=== PATIENT | female | born 1960 | race Caucasian/White ===

== ENCOUNTER 2017-03-04 08:22 | Outpatient (RCR) | payer MEDICAID, SELFPAY ==
[2017-03-04 09:52] VITALS: BP 136/81; PULSE 83; RESP 20; TEMP 36.4
[2017-03-04 14:22] LABS: Prealbumin 35.1 mg/dL (20.0-40.0)
--- NOTE | 2017-03-04 18:02 | PCM.WC.HP ---
(1) Surgical wound dehiscence Status: Acute Current Visit: Yes Code(s): T81.31XA - Disruption of external operation (surgical) wound, not elsewhere classified, initial encounter (2) Ileostomy status Status: Acute Current Visit: Yes Code(s): Z93.2 - Ileostomy status (3) DM2 (diabetes mellitus, type 2) Status: Chronic Current Visit: Yes Qualifiers: Code(s): E11.9 - Type 2 diabetes mellitus without complications (4) Ulcerative colitis Status: Chronic Current Visit: No Code(s): K51.90 - Ulcerative colitis, unspecified, without complications Comment: Status post ileostomy (5) Gastroparesis Status: Suspected Current Visit: Yes Code(s): K31.84 - Gastroparesis History of Present Illness Date of Service: 03/04/17 Chief Complaint: Right sided abdominal wound. History of Wound: Ms. Artis is a 56yo with an extensive past medical history who presented here on referral by her general surgeon. She was referred to general surgeon after she presented to her PCP with an opening of her 10 year surgical scar. This was said to be sudden in onset without any known precipitating factor. There has been no discharge from the site and no increased tenderness around the area either. She had been cleaning with hydrogen peroxide and dressing with gauze as recommended by her surgeon. She has a history of prior surgical wound dehiscence and these were as a result of undissolved sutures. She feels well otherwise. As stated earlier she denies any discharge from the wound site. She also denies chills, fever or otherwise feeling of unwell. Past Medical History Past Medical History: Chronic Problems (Last Reviewed 02/23/17 @ 08:40 by Thai Noble MD) CAD (coronary artery disease) (Chronic) Hyperlipidemia (Chronic) Diarrhea (Chronic) Anemia of chronic renal failure, stage 3 (moderate) (Chronic) Obstructive sleep apnea (Chronic) Psoriasis (Chronic) Heart failure with preserved ejection fraction (Chronic) Benign essential HTN (Chronic) Depression (Chronic) DM2 (diabetes mellitus, type 2) (Chronic) FCHL (familial combined hyperlipidemia) (Chronic) Ulcerative colitis (Chronic) Status post ileostomy Hx of coronary artery disease (Chronic) Status post CABG, failed, status post multiple stents. Pulmonary hypertension (Chronic) History of coronary artery stent placement (Chronic ~2012) Mid LAD and Cx 2013, D1 and prox OM1 2012, Prox SVG, Distal SVG to the Mid OM 2012 S/P CABG (coronary artery bypass graft) (Chronic ~2012) JONES to LAD, SVG diag, SVG to OM, SVG to left PDA Chronic respiratory failure (Chronic) COPD (chronic obstructive pulmonary disease) (Chronic) Surgical History: angioplasty, coronary bypass surgery, - - Complete colectomy for ulcerative colitis 30 years ago. Patient had her ileostomy transitioned over from her right to her left. Allergies/Adverse Reactions: Allergies cinnamon [Cinnamon] Allergy (Verified 02/23/17 08:32) Anaphylaxis Influenza Virus Vaccines Allergy (Verified 02/23/17 08:37) Shortness of breath liraglutide [From Victoza] Allergy (Verified 02/23/17 08:32) Anaphylaxis metronidazole [From Flagyl] Allergy (Verified 02/23/17 08:32) Hives Metronidazole HCl [From Flagyl] Allergy (Verified 02/23/17 08:32) Hives Penicillins Allergy (Verified 02/23/17 08:32) Hives Sulfa (Sulfonamide Antibiotics) Allergy (Verified 02/23/17 08:32) Hives codeine Adverse Reaction (Verified 02/23/17 08:32) Stops Ileostomy dicyclomine HCl [From Bentyl] Adverse Reaction (Verified 02/23/17 08:32) Nausea metformin HCl [From Glucophage] Adverse Reaction (Verified 02/23/17 08:32) Nausea Lqzbboj-Kav-Mwo Reductase Inhibitor Adverse Reaction (Verified 02/23/17 08:32) Nausea/joints ache Home Medications: Ambulatory Orders Medication Instructions Recorded ALPRAZolam [Xanax] 0.5 mg PO QHS 01/21/15 Aspirin [Aspirin, Baby] 81 mg PO DAILY@0800 01/21/15 Atorvastatin Calcium [Lipitor] 80 mg PO QHS 01/21/15 Clopidogrel Bisulfate [Plavix] 75 mg PO DAILY 01/21/15 Duloxetine Hcl [Cymbalta] 60 mg PO BID 01/21/15 Magnesium Oxide [Mag-Ox 400] 400 mg PO BID 01/21/15 Metoprolol Tartrate [Lopressor 75 mg PO TID 01/21/15 (beta esha)] Bupropion HCl [Wellbutrin Xl] 100 mg PO TID 03/28/16 Nitroglycerin [Nitrostat] 0.4 mg SL Q5M PRN 07/12/16 Insulin Aspart [Novolog Vial] 20 - 40 unit SQ TIDCM 09/03/16 Isosorbide DN [Isordil] 30 mg PO TID 09/03/16 Pregabalin [Lyrica] 100 mg PO BID 09/03/16 Ondansetron HCl [Zofran] 4 mg PO Q8H PRN PRN #20 tab 09/05/16 Baclofen 10 mg PO QHS 11/24/16 Calcium Carbonate [Calcium] 600 mg PO BID 11/24/16 Cholecalciferol (Vitamin D3) 2,000 unit PO DAILY 11/24/16 [Vitamin D3] Fenofibrate 200 mg PO DAILY 11/24/16 Insulin Glargine,Hum.rec.anlog 40 unit SQ DAILY 11/24/16 [Basaglar Kwikpen U-100] Insulin Glargine,Hum.rec.anlog 50 unit SQ QHS 11/24/16 [Basaglar Kwikpen U-100] TraMADol [Ultram (G)] 50 mg PO QHS 11/24/16 loperamide 2 mg tablet 2 mg PO .qid PRN tab 02/12/17 omeprazole 20 mg capsule,delayed 20 mg PO QDAY 02/12/17 release triamcinolone acetonide 0.1 % 1 applic TOPICAL BID 02/12/17 topical cream - Family History Maternal Family History: Family History (Last Reviewed 02/23/17 @ 08:40 by Thai Noble MD) Mother CVA (cerebral vascular accident) Diabetes Brother Heart disease Father Cancer Grandmother Myocardial infarction Heart Disease, - - No autoimmune disease that she is aware of Paternal Family History: Family History (Last Reviewed 02/23/17 @ 08:40 by Thai Noble MD) Mother CVA (cerebral vascular accident) Diabetes Brother Heart disease Father Cancer Grandmother Myocardial infarction Cancer - Father has H/o lymphoma, - - No autoimmune disease that she is aware of Smoking Status: Former smoker Review of Systems Constitutional: Denies: Chills, Fever, Malaise Eyes: Denies: Pain, Redness HEENT: Denies: Difficulty Hearing, Difficulty Swallowing Cardiovascular: Denies: Chest Pain, Chest Tightness, Palpitations Gastrointestinal: Denies: Hematemesis, Vomiting Neurological: Denies: Change in Speech, Slurred speech Psychiatric: Denies: Homicidal Ideations, Suicidal Ideations - Physical Exam Vital Signs Temp Pulse Resp BP 97.5 F L 83 20 H 136/81 H 03/04/17 09:52 03/04/17 09:52 03/04/17 09:52 03/04/17 09:52 General: Alert, Oriented x3, Cooperative, No apparent distress HEENT: Atraumatic, Normocephalic Oral: Moist Mucosa Neck: Supple, No JVD Lungs: Clear to auscultation, Normal air movement Cardiovascular: Regular rate, Regular Rhythm, Normal S1, Normal S2 Abdomen: Soft, No Hepato-splenomegaly Extremities: No cyanosis Wound Measurements and Assessment - Nurse 1 - General Ulcer Measurement Start: 03/04/17 09:51 Freq: Status: Active Protocol: Activity Type Activity Date Activity User E-Sign Co-Sign Detail Recorded Client Recorded Date Recorded By Document 03/04/17 09:52 [id number] 03/04/17 09:59 RB 03/04/17 09:52 Wound Center Nurse 1 [Ulcer Assessment Protocol: .WD.LOC] 1. RLQ -Combined with other wound No -Current Size (cm) - Length 0.4 -Current Size (cm) - Width 0.8 -Current Size (cm) - Depth 0.5 -Total Square Cm 0.32 -Photo Taken Yes -Epithelialization Small 1-33% -Tunneling No -Undermining/Tunneling No -Circular Undermining No -Classification - Thickness Full Thickness without Exposed Support Structure -Exudate Amt Medium (34-66%) -Exudate Type Serosanguineous -Wound Margin Fibrotic Scar, Thickened Scar -Granulation Amt Large (67-100%) -Granulation Quality [place] -Slough/Fibrin Yes -Necrosis Amt Small (1-33%) -Necrotic Tissue Type Adherent Slough -Structure Exposed N/A -Texture (Fay-wound Skin Appearance) Assessed -Moisture (Fay-wound Skin Appearance Assessed ) -Color (Fay-wound Skin Appearance) Assessed -Temperature (Fay-wound Skin No Abnormality Appearance) (Pt Warm) -Tenderness on Palpation (Fay-wound No Skin Appearance) -Ulcer Cleansing Wound Cleanser -Foul Odor after Cleansing No -Anesthetic Used 5% Lidocaine Gel [Edema Assessment] -Lower Limb Edema Present NA WC - Nurse 2 - General Ulcer CM Notes Start: 03/04/17 09:51 Freq: Status: Active Protocol: Activity Type Activity Date Activity User E-Sign Co-Sign Detail Recorded Client Recorded Date Recorded By Document 03/04/17 10:35 DV [id number] 03/04/17 10:41 DV 03/04/17 10:35 Wound Center Nurse 2 [Procedure/Treatment] 1. RLQ -Time 10:37 -Correct Patient Yes -Correct Side, Site, Position Yes -Correct Procedure Yes -Procedure Performed Yes -Type of Procedure Debridement -Clinical Debridement Subcutaneous -Post Debridement Size (cm) - Length 0.6 -Post Debridement Size (cm) - Width 1.2 -Post Debridement Size (cm) - Depth 0.7 -Total Square Cm 0.72 -Wound/Ulcer Outcome Not Healed -Ulcer Cleansing Rinsed/ Irrigated with Saline -Foul Odor after Cleansing No -Bioengineered Tissue No -Cetacaine [place] No -Bleeding Controlled with Pressure -Treatment Response Procedure Not Tolerated Well [See Physician Procedure note for Specifics] Pain Scale: 0-10 Numeric [Pain] -Is Patient Pain Free? No Neurological: Cranial nerves II-XII grossly intact Psych/Mental Status: Normal Affect Debridement Note Post-Debridement Measurements/Treatment - Nurse 2 - General Ulcer CM Notes Start: 03/04/17 09:51 Freq: Status: Active Protocol: Activity Type Activity Date Activity User E-Sign Co-Sign Detail Recorded Client Recorded Date Recorded By Document 03/04/17 10:35 DV [id number] 03/04/17 10:41 DV 03/04/17 10:35 Wound Center Nurse 2 1. RLQ -Time 10:37 -Correct Patient Yes -Correct Side, Site, Position Yes -Correct Procedure Yes -Procedure Performed Yes -Type of Procedure Debridement -Clinical Debridement Subcutaneous -Post Debridement Size (cm) - Length 0.6 -Post Debridement Size (cm) - Width 1.2 -Post Debridement Size (cm) - Depth 0.7 -Total Square Cm 0.72 -Wound/Ulcer Outcome Not Healed -Ulcer Cleansing Rinsed/ Irrigated with Saline -Foul Odor after Cleansing No -Bioengineered Tissue No -Cetacaine [place] No -Bleeding Controlled with Pressure -Treatment Response Procedure Not Tolerated Well Pain Scale: 0-10 Numeric Is Patient Pain Free? No Wound debrided: Right lower abdominal wound. Type of Debridement: Excisional debridement Anesthesia Used: 5% Lidocaine Gel Depth: Down to and including healthy tissue, in the subcutaneous layer Percentage of wound debrided: 100 Instrument Used: 3mm curette, #15 blade, Forceps Tissue Removed: Slough, fatty tissue. Amount of bleeding with debridement: Mild Bleeding Controlled with: Pressure Patient tolerated procedure well Assessment/Plan Active Problems (Last Reviewed 02/23/17 @ 08:40 by Thai Noble MD) Ileostomy status (Acute) Surgical wound dehiscence (Acute) DM2 (diabetes mellitus, type 2) (Chronic) Assessment: Abdominal wound dehiscence of a 10 year surgical scar. Diabetes mellitus type 2 poorly controlled. Plan: Sudden onset wound dehiscence of the 10 year surgical scar. No known precipitating factor. No obvious signs of infection at this time however culture was taken after debridement was done. Due to a history of gastroparesis and poor intake a prealbumin was also done. Pack wound daily with Aquacel. Review results at next visit. Follow-up in 1 week. This note was generated with [employer] dictation software. It may contain incorrect words, spelling, and punctuation that were not noted in checking the note before signing.
== END 2017-03-07 23:59 ==
LOC: WC 08:22
PROVIDERS: Family Provider Internal Medicine; PCP Internal Medicine; Visit Provider Internal Medicine
DX: T81.30XA Disruption of wound, unspecified, initial encounter (principal); Y83.8 Other surgical procedures as the cause of abnormal reaction of the patient, or of later complication, without mention of misadventure at the time of the procedure; Z93.2 Ileostomy status; K51.90 Ulcerative colitis, unspecified, without complications; K31.84 Gastroparesis; I25.10 Atherosclerotic heart disease of native coronary artery without angina pectoris; E78.4 Other hyperlipidemia; E11.22 Type 2 diabetes mellitus with diabetic chronic kidney disease; I13.0 Hypertensive heart and chronic kidney disease with heart failure and stage 1 through stage 4 chronic kidney disease, or unspecified chronic kidney disease; N18.3 Chronic kidney disease, stage 3 (moderate); I50.32 Chronic diastolic (congestive) heart failure; J96.10 Chronic respiratory failure, unspecified whether with hypoxia or hypercapnia; J44.9 Chronic obstructive pulmonary disease, unspecified; Z95.1 Presence of aortocoronary bypass graft; I27.20 Pulmonary hypertension, unspecified; L40.9 Psoriasis, unspecified; G47.33 Obstructive sleep apnea (adult) (pediatric); Z79.02 Long term (current) use of antithrombotics/antiplatelets; Z79.82 Long term (current) use of aspirin; Z79.4 Long term (current) use of insulin; Z79.899 Other long term (current) drug therapy; Z87.891 Personal history of nicotine dependence; E11.65 Type 2 diabetes mellitus with hyperglycemia
CPT/HCPCS: 11042; 84134; 87070; 87075; 87205; 99213; G0463

== ENCOUNTER 2017-04-01 12:49 | Outpatient (RCR) | payer MEDICAID, SELFPAY | END 2017-04-07 23:59 | LOC: DC 12:49 | PROVIDERS: Family Provider Internal Medicine; PCP Internal Medicine; Visit Provider Nurse Practitioner Family | DX: E11.22 Type 2 diabetes mellitus with diabetic chronic kidney disease (principal); Z68.31 Body mass index [BMI] 31.0-31.9, adult; Z71.3 Dietary counseling and surveillance | CPT/HCPCS: 97802 ==

== ENCOUNTER 2017-04-07 09:00 | Outpatient (RCR) | payer MEDICAID, SELFPAY ==
[2017-03-08 01:43] VITALS: BP 136/81; PULSE 83; RESP 20; TEMP 36.4
[2017-03-10 09:07] VITALS: BP 141/81; PULSE 90; RESP 18; TEMP 35.5
--- NOTE | 2017-03-10 13:03 | PCM.WC.PN ---
(1) Surgical wound dehiscence Status: Acute Current Visit: Yes Qualifiers: Encounter type: subsequent encounter Qualified Code(s): T81.31XD - Disruption of external operation (surgical) wound, not elsewhere classified, subsequent encounter Code(s): T81.31XA - Disruption of external operation (surgical) wound, not elsewhere classified, initial encounter (2) DM2 (diabetes mellitus, type 2) Status: Chronic Current Visit: Yes Qualifiers: Code(s): E11.9 - Type 2 diabetes mellitus without complications (3) Gastroparesis Status: Suspected Current Visit: No Code(s): K31.84 - Gastroparesis (4) Ulcerative colitis Status: Chronic Current Visit: No Code(s): K51.90 - Ulcerative colitis, unspecified, without complications Comment: Status post ileostomy Type of Wound Date of Service: 03/10/17 Chief Complaint: Right sided abdominal wound. History of Wound: Ms. Artis is a 56yo with an extensive past medical history who presented here on referral by her general surgeon. She was referred to general surgeon after she presented to her PCP with an opening of her 10 year surgical scar. This was said to be sudden in onset without any known precipitating factor. There has been no discharge from the site and no increased tenderness around the area either. She had been cleaning with hydrogen peroxide and dressing with gauze as recommended by her surgeon. She has a history of prior surgical wound dehiscence and these were as a result of undissolved sutures. She feels well otherwise. As stated earlier she denies any discharge from the wound site. She also denies chills, fever or otherwise feeling of unwell. Progress of Wound: Increasing wound margin. However, no discharge from the site. Has had a 6 day history of increased cough, shortness of breath, wheezing and chest pain. She has been managing symptoms at home. She also admits to poor blood sugar control during this time. - Physical Exam Vital Signs Temp Pulse Resp BP 95.9 F L 90 18 141/81 H 03/10/17 09:07 03/10/17 09:07 03/10/17 09:07 03/10/17 09:07 General: Alert, Oriented x3, Cooperative HEENT: Atraumatic, Normocephalic Neck: Supple Lungs: Wheezes Abdomen: Soft, Non Tender, Obese Extremities: No cyanosis Wound Measurements and Assessment - Nurse 1 - General Ulcer Measurement Start: 03/10/17 09:07 Freq: Status: Active Protocol: Activity Type Activity Date Activity User E-Sign Co-Sign Detail Recorded Client Recorded Date Recorded By Document 03/10/17 09:07 RB [id number] 03/10/17 09:14 RB 03/10/17 09:07 Wound Center Nurse 1 [Ulcer Assessment Protocol: WC.WD.LOC] 1. RLQ -Combined with other wound No -Current Size (cm) - Length 0.5 -Current Size (cm) - Width 1.3 -Current Size (cm) - Depth 1.2 -Total Square Cm 0.65 -Photo Taken No -Epithelialization Small 1-33% -Tunneling Yes -Tunneling Position (O'clock) 10 -Tunneling Distance (cm) 1.1 -Undermining/Tunneling No -Circular Undermining No -Classification - Thickness Full Thickness without Exposed Support Structure -Exudate Amt Small (1-33%) -Exudate Type Serosanguineous -Wound Margin Distinct, Outline Attached -Granulation Amt Medium (34-66%) -Granulation Quality [place] -Slough/Fibrin Yes -Necrosis Amt Small (1-33%) -Necrotic Tissue Type Adherent Slough -Structure Exposed N/A -Texture (Fay-wound Skin Appearance) Assessed -Moisture (Fay-wound Skin Appearance Assessed ) -Color (Fay-wound Skin Appearance) Assessed -Temperature (Fay-wound Skin No Abnormality Appearance) (Pt Warm) -Tenderness on Palpation (Fay-wound No Skin Appearance) -Ulcer Cleansing Rinsed/ Irrigated with Saline -Foul Odor after Cleansing No -Anesthetic Used 5% Lidocaine Gel WC - Nurse 2 - General Ulcer CM Notes Start: 03/10/17 09:07 Freq: Status: Active Protocol: Activity Type Activity Date Activity User E-Sign Co-Sign Detail Recorded Client Recorded Date Recorded By Document 03/10/17 09:58 DV [id number] 03/10/17 10:00 DV 03/10/17 09:58 Wound Center Nurse 2 [Procedure/Treatment] -Time 09:58 -Correct Patient Yes -Correct Side, Site, Position Yes -Correct Procedure Yes -Procedure Performed Yes -Type of Procedure Debridement -Clinical Debridement Subcutaneous -Post Debridement Size (cm) - Length 0.7 -Post Debridement Size (cm) - Width 1.4 -Post Debridement Size (cm) - Depth 0.5 -Total Square Cm 0.98 -Wound/Ulcer Outcome Not Healed -Ulcer Cleansing Rinsed/ Irrigated with Saline -Foul Odor after Cleansing No -Bioengineered Tissue No -Cetacaine [place] No -Bleeding Controlled with Pressure -Treatment Response Procedure Tolerated Well [See Physician Procedure note for Specifics] Pain Scale: 0-10 Numeric [Pain] -Is Patient Pain Free? Yes Musculoskeletal: No Muscle Wasting Neurological: Cranial nerves II-XII grossly intact Debridement Note Post-Debridement Measurements/Treatment WC - Nurse 2 - General Ulcer CM Notes Start: 03/10/17 09:07 Freq: Status: Active Protocol: Activity Type Activity Date Activity User E-Sign Co-Sign Detail Recorded Client Recorded Date Recorded By Document 03/10/17 09:58 DV [id number] 03/10/17 10:00 DV 03/10/17 09:58 Wound Center Nurse 2 1. RLQ -Time 09:58 -Correct Patient Yes -Correct Side, Site, Position Yes -Correct Procedure Yes -Procedure Performed Yes -Type of Procedure Debridement -Clinical Debridement Subcutaneous -Post Debridement Size (cm) - Length 0.7 -Post Debridement Size (cm) - Width 1.4 -Post Debridement Size (cm) - Depth 0.5 -Total Square Cm 0.98 -Wound/Ulcer Outcome Not Healed -Ulcer Cleansing Rinsed/ Irrigated with Saline -Foul Odor after Cleansing No -Bioengineered Tissue No -Cetacaine [place] No -Bleeding Controlled with Pressure -Treatment Response Procedure Tolerated Well Pain Scale: 0-10 Numeric Is Patient Pain Free? Yes Wound debrided: Right sided Lower abdominal wound. Type of Debridement: Excisional debridement Anesthesia Used: 5% Lidocaine Gel Depth: Down to and including healthy tissue, in the subcutaneous layer Percentage of wound debrided: 100 Instrument Used: 5mm curette Tissue Removed: Slough Amount of bleeding with debridement: Mild Bleeding Controlled with: Pressure Patient tolerated procedure well Assessment/Plan Active Problems (Last Reviewed 03/10/17 @ 15:50 by Roberto Lynch NP-C) Surgical wound dehiscence (Acute) DM2 (diabetes mellitus, type 2) (Chronic) Assessment: Abdominal wound dehiscence of a 10 year surgical scar. Diabetes mellitus type 2 poorly controlled. Plan: Increasing wound margin since last visit. Tunnelling also appears to have increased. She however denies any increased discharge from the site. Has had a bout of what appears to be acute bronchitis for about 6 days. Advised to follow up with her Physician's office [facility]. ??? Increased wound margin and tunelling from increased intrabdominal presusre due to cough. Countinue Aquacel daily with packing of tunelling also. Continue protein rich diet and optimal blood sugar control. If tunelling and wound margin continue to increase, will refer back to Dr. Noble for possible surgical exploration. Follow up in 1 week. This note was generated with [employer] dictation software. It may contain incorrect words, spelling, and punctuation that were not noted in checking the note before signing.
--- NOTE | 2017-03-10 13:13 | PN.PCM_ITS ---
(1) Surgical wound dehiscence Status: Acute Current Visit: Yes Qualifiers: Encounter type: subsequent encounter Qualified Code(s): T81.31XD - Disruption of external operation (surgical) wound, not elsewhere classified, subsequent encounter Code(s): T81.31XA - Disruption of external operation (surgical) wound, not elsewhere classified, initial encounter (2) DM2 (diabetes mellitus, type 2) Status: Chronic Current Visit: Yes Qualifiers: Code(s): E11.9 - Type 2 diabetes mellitus without complications (3) Gastroparesis Status: Suspected Current Visit: No Code(s): K31.84 - Gastroparesis (4) Ulcerative colitis Status: Chronic Current Visit: No Code(s): K51.90 - Ulcerative colitis, unspecified, without complications Comment: Status post ileostomy Type of Wound Date of Service: 03/10/17 Chief Complaint: Right sided abdominal wound. History of Wound: Ms. Artis is a 56yo with an extensive past medical history who presented here on referral by her general surgeon. She was referred to general surgeon after she presented to her PCP with an opening of her 10 year surgical scar. This was said to be sudden in onset without any known precipitating factor. There has been no discharge from the site and no increased tenderness around the area either. She had been cleaning with hydrogen peroxide and dressing with gauze as recommended by her surgeon. She has a history of prior surgical wound dehiscence and these were as a result of undissolved sutures. She feels well otherwise. As stated earlier she denies any discharge from the wound site. She also denies chills, fever or otherwise feeling of unwell. Progress of Wound: Increasing wound margin. However, no discharge from the site. Has had a 6 day history of increased cough, shortness of breath, wheezing and chest pain. She has been managing symptoms at home. She also admits to poor blood sugar control during this time. - Physical Exam Vital Signs Temp Pulse Resp BP 95.9 F L 90 18 141/81 H 03/10/17 09:07 03/10/17 09:07 03/10/17 09:07 03/10/17 09:07 General: Alert, Oriented x3, Cooperative HEENT: Atraumatic, Normocephalic Neck: Supple Lungs: Wheezes Abdomen: Soft, Non Tender, Obese Extremities: No cyanosis Wound Measurements and Assessment - Nurse 1 - General Ulcer Measurement Start: 03/10/17 09:07 Freq: Status: Active Protocol: Activity Type Activity Date Activity User E-Sign Co-Sign Detail Recorded Client Recorded Date Recorded By Document 03/10/17 09:07 RB [id number] 03/10/17 09:14 RB 03/10/17 09:07 Wound Center Nurse 1 [Ulcer Assessment Protocol: WC.WD.LOC] 1. RLQ -Combined with other wound No -Current Size (cm) - Length 0.5 -Current Size (cm) - Width 1.3 -Current Size (cm) - Depth 1.2 -Total Square Cm 0.65 -Photo Taken No -Epithelialization Small 1-33% -Tunneling Yes -Tunneling Position (O'clock) 10 -Tunneling Distance (cm) 1.1 -Undermining/Tunneling No -Circular Undermining No -Classification - Thickness Full Thickness without Exposed Support Structure -Exudate Amt Small (1-33%) -Exudate Type Serosanguineous -Wound Margin Distinct, Outline Attached -Granulation Amt Medium (34-66%) -Granulation Quality [place] -Slough/Fibrin Yes -Necrosis Amt Small (1-33%) -Necrotic Tissue Type Adherent Slough -Structure Exposed N/A -Texture (Fay-wound Skin Appearance) Assessed -Moisture (Fay-wound Skin Appearance Assessed ) -Color (Fay-wound Skin Appearance) Assessed -Temperature (Fay-wound Skin No Abnormality Appearance) (Pt Warm) -Tenderness on Palpation (Fay-wound No Skin Appearance) -Ulcer Cleansing Rinsed/ Irrigated with Saline -Foul Odor after Cleansing No -Anesthetic Used 5% Lidocaine Gel WC - Nurse 2 - General Ulcer CM Notes Start: 03/10/17 09:07 Freq: Status: Active Protocol: Activity Type Activity Date Activity User E-Sign Co-Sign Detail Recorded Client Recorded Date Recorded By Document 03/10/17 09:58 DV [id number] 03/10/17 10:00 DV 03/10/17 09:58 Wound Center Nurse 2 [Procedure/Treatment] -Time 09:58 -Correct Patient Yes -Correct Side, Site, Position Yes -Correct Procedure Yes -Procedure Performed Yes -Type of Procedure Debridement -Clinical Debridement Subcutaneous -Post Debridement Size (cm) - Length 0.7 -Post Debridement Size (cm) - Width 1.4 -Post Debridement Size (cm) - Depth 0.5 -Total Square Cm 0.98 -Wound/Ulcer Outcome Not Healed -Ulcer Cleansing Rinsed/ Irrigated with Saline -Foul Odor after Cleansing No -Bioengineered Tissue No -Cetacaine [place] No -Bleeding Controlled with Pressure -Treatment Response Procedure Tolerated Well [See Physician Procedure note for Specifics] Pain Scale: 0-10 Numeric [Pain] -Is Patient Pain Free? Yes Musculoskeletal: No Muscle Wasting Neurological: Cranial nerves II-XII grossly intact Debridement Note Post-Debridement Measurements/Treatment WC - Nurse 2 - General Ulcer CM Notes Start: 03/10/17 09:07 Freq: Status: Active Protocol: Activity Type Activity Date Activity User E-Sign Co-Sign Detail Recorded Client Recorded Date Recorded By Document 03/10/17 09:58 DV [id number] 03/10/17 10:00 DV 03/10/17 09:58 Wound Center Nurse 2 1. RLQ -Time 09:58 -Correct Patient Yes -Correct Side, Site, Position Yes -Correct Procedure Yes -Procedure Performed Yes -Type of Procedure Debridement -Clinical Debridement Subcutaneous -Post Debridement Size (cm) - Length 0.7 -Post Debridement Size (cm) - Width 1.4 -Post Debridement Size (cm) - Depth 0.5 -Total Square Cm 0.98 -Wound/Ulcer Outcome Not Healed -Ulcer Cleansing Rinsed/ Irrigated with Saline -Foul Odor after Cleansing No -Bioengineered Tissue No -Cetacaine [place] No -Bleeding Controlled with Pressure -Treatment Response Procedure Tolerated Well Pain Scale: 0-10 Numeric Is Patient Pain Free? Yes Wound debrided: Right sided Lower abdominal wound. Type of Debridement: Excisional debridement Anesthesia Used: 5% Lidocaine Gel Depth: Down to and including healthy tissue, in the subcutaneous layer Percentage of wound debrided: 100 Instrument Used: 5mm curette Tissue Removed: Slough Amount of bleeding with debridement: Mild Bleeding Controlled with: Pressure Patient tolerated procedure well Assessment/Plan Active Problems (Last Reviewed 03/10/17 @ 15:50 by Roberto Lynch NP-C) Surgical wound dehiscence (Acute) DM2 (diabetes mellitus, type 2) (Chronic) Assessment: Abdominal wound dehiscence of a 10 year surgical scar. Diabetes mellitus type 2 poorly controlled. Plan: Increasing wound margin since last visit. Tunnelling also appears to have increased. She however denies any increased discharge from the site. Has had a bout of what appears to be acute bronchitis for about 6 days. Advised to follow up with her Physician's office [facility]. ??? Increased wound margin and tunelling from increased intrabdominal presusre due to cough. Countinue Aquacel daily with packing of tunelling also. Continue protein rich diet and optimal blood sugar control. If tunelling and wound margin continue to increase , will refer back to Dr. Noble for possible surgical exploration. Follow up in 1 week. This note was generated with [employer] dictation software. It may contain incorrect words, spelling, and punctuation that were not noted in checking the note before signing.
[2017-03-17 10:10] VITALS: BP 158/92; PULSE 81; RESP 18; TEMP 36.2
--- NOTE | 2017-03-17 14:21 | PCM.WC.PN ---
(1) Surgical wound dehiscence Status: Acute Current Visit: Yes Qualifiers: Encounter type: subsequent encounter Qualified Code(s): T81.31XD - Disruption of external operation (surgical) wound, not elsewhere classified, subsequent encounter Code(s): T81.31XA - Disruption of external operation (surgical) wound, not elsewhere classified, initial encounter (2) DM2 (diabetes mellitus, type 2) Status: Chronic Current Visit: Yes Qualifiers: Code(s): E11.9 - Type 2 diabetes mellitus without complications (3) Gastroparesis Status: Suspected Current Visit: No Code(s): K31.84 - Gastroparesis (4) Ulcerative colitis Status: Chronic Current Visit: No Code(s): K51.90 - Ulcerative colitis, unspecified, without complications Comment: Status post ileostomy Type of Wound Date of Service: 03/17/17 Chief Complaint: Right sided abdominal wound. History of Wound: Ms. Artis is a 56yo with an extensive past medical history who presented here on referral by her general surgeon. She was referred to general surgeon after she presented to her PCP with an opening of her 10 year surgical scar. This was said to be sudden in onset without any known precipitating factor. There has been no discharge from the site and no increased tenderness around the area either. She had been cleaning with hydrogen peroxide and dressing with gauze as recommended by her surgeon. She has a history of prior surgical wound dehiscence and these were as a result of undissolved sutures. She feels well otherwise. As stated earlier she denies any discharge from the wound site. She also denies chills, fever or otherwise feeling of unwell. Progress of Wound: Stable. No new compliants today. - Physical Exam Vital Signs Temp Pulse Resp BP 97.1 F L 81 18 158/92 H 03/17/17 10:10 03/17/17 10:10 03/17/17 10:10 03/17/17 10:10 General: Alert, Oriented x3, Cooperative, No apparent distress HEENT: Atraumatic, Normocephalic Oral: Moist Mucosa Neck: Supple Cardiovascular: Regular rate Abdomen: Soft, - - Ileostomy bag in place. Wound Measurements and Assessment WC - Nurse 1 - General Ulcer Measurement Start: 03/10/17 09:07 Freq: Status: Active Protocol: Activity Type Activity Date Activity User E-Sign Co-Sign Detail Recorded Client Recorded Date Recorded By Document 03/17/17 10:10 [facility] [id number] 03/17/17 10:18 [facility] 03/17/17 10:10 Wound Center Nurse 1 [Ulcer Assessment Protocol: WC.WD.LOC] 1. RLQ -Combined with other wound No -Current Size (cm) - Length 0.3 -Current Size (cm) - Width 1 -Current Size (cm) - Depth 1.6 -Total Square Cm 0.3 -Photo Taken No -Epithelialization None Present -Tunneling No -Undermining/Tunneling No -Exudate Amt Medium (34-66%) -Exudate Type Sanguineous -Wound Margin Distinct, Outline Attached -Granulation Amt Large (67-100%) -Granulation Quality Red -Slough/Fibrin No -Necrosis Amt None Present (0 %) -Structure Exposed N/A -Texture (Fay-wound Skin Appearance) Scarring -Moisture (Fay-wound Skin Appearance Assessed ) -Color (Fay-wound Skin Appearance) Assessed -Temperature (Fay-wound Skin No Abnormality Appearance) (Pt Warm) -Tenderness on Palpation (Fay-wound Yes Skin Appearance) -Ulcer Cleansing Rinsed/ Irrigated with Saline -Foul Odor after Cleansing No -Anesthetic Used 4% Lidocaine Solution - Nurse 2 - General Ulcer CM Notes Start: 03/10/17 09:07 Freq: Status: Active Protocol: Activity Type Activity Date Activity User E-Sign Co-Sign Detail Recorded Client Recorded Date Recorded By Document 03/17/17 11:51 [id number] 03/17/17 11:54 DV 03/17/17 11:51 Wound Center Nurse 2 [Procedure/Treatment] -Time 11:52 -Correct Patient Yes -Correct Side, Site, Position Yes -Correct Procedure Yes -Procedure Performed Yes -Type of Procedure Debridement -Clinical Debridement Subcutaneous -Post Debridement Size (cm) - Length 0.5 -Post Debridement Size (cm) - Width 1.1 -Post Debridement Size (cm) - Depth 0.5 -Total Square Cm 0.55 -Wound/Ulcer Outcome Not Healed -Ulcer Cleansing Rinsed/ Irrigated with Saline -Foul Odor after Cleansing No -Bioengineered Tissue No -Cetacaine [place] No -Bleeding Controlled with Pressure -Treatment Response Procedure Tolerated Well [See Physician Procedure note for Specifics] Pain Scale: 0-10 Numeric [Pain] -Is Patient Pain Free? Yes Neurological: Cranial nerves II-XII grossly intact Debridement Note Post-Debridement Measurements/Treatment WC - Nurse 2 - General Ulcer CM Notes Start: 03/10/17 09:07 Freq: Status: Active Protocol: Activity Type Activity Date Activity User E-Sign Co-Sign Detail Recorded Client Recorded Date Recorded By Document 03/10/17 09:58 DV [id number] 03/10/17 10:00 DV Document 03/17/17 11:51 DV [id number] 03/17/17 11:54 DV 03/10/17 03/17/17 09:58 11:51 Wound Center Nurse 2 1. RLQ -Time 09:58 11:52 -Correct Patient Yes Yes -Correct Side, Site, Position Yes Yes -Correct Procedure Yes Yes -Procedure Performed Yes Yes -Type of Procedure Debridement Debridement -Clinical Debridement Subcutaneous Subcutaneous -Post Debridement Size (cm) - Length 0.7 0.5 -Post Debridement Size (cm) - Width 1.4 1.1 -Post Debridement Size (cm) - Depth 0.5 0.5 -Total Square Cm 0.98 0.55 -Wound/Ulcer Outcome Not Healed Not Healed -Ulcer Cleansing Rinsed/ Rinsed/ Irrigated with Irrigated with Saline Saline -Foul Odor after Cleansing No No -Bioengineered Tissue No No -Cetacaine [place] No No -Bleeding Controlled with Pressure Pressure -Treatment Response Procedure Procedure Tolerated Well Tolerated Well Pain Scale: 0-10 Numeric Is Patient Pain Free? Yes Yes Type of Debridement: Excisional debridement Anesthesia Used: 4% Lidocaine Solution Depth: Down to and including healthy tissue, in the subcutaneous layer Percentage of wound debrided: 100 Instrument Used: 3mm curette Tissue Removed: Slough Amount of bleeding with debridement: Mild Bleeding Controlled with: Pressure Patient tolerated procedure well Assessment/Plan Active Problems (Last Reviewed 03/10/17 @ 15:50 by DERIC Banks) Surgical wound dehiscence (Acute) DM2 (diabetes mellitus, type 2) (Chronic) Assessment: Abdominal wound dehiscence of a 10 year surgical scar. Diabetes mellitus type 2 poorly controlled. Plan: Ms. Artis is doing well. Wound tunelling with slight reduction in size. Wound size also slightly reduced. Continue daily packing with aquacel. Continue increased protein intake. Continue optimal blood sugar control. Follow up in 1 week. This note was generated with [employer] software. It may contain incorrect words, spelling, and punctuation that were not noted in checking the note before signing.
--- NOTE | 2017-03-17 14:35 | PN.PCM_ITS ---
(1) Surgical wound dehiscence Status: Acute Current Visit: Yes Qualifiers: Encounter type: subsequent encounter Qualified Code(s): T81.31XD - Disruption of external operation (surgical) wound, not elsewhere classified, subsequent encounter Code(s): T81.31XA - Disruption of external operation (surgical) wound, not elsewhere classified, initial encounter (2) DM2 (diabetes mellitus, type 2) Status: Chronic Current Visit: Yes Qualifiers: Code(s): E11.9 - Type 2 diabetes mellitus without complications (3) Gastroparesis Status: Suspected Current Visit: No Code(s): K31.84 - Gastroparesis (4) Ulcerative colitis Status: Chronic Current Visit: No Code(s): K51.90 - Ulcerative colitis, unspecified, without complications Comment: Status post ileostomy Type of Wound Date of Service: 03/17/17 Chief Complaint: Right sided abdominal wound. History of Wound: Ms. Artis is a 56yo with an extensive past medical history who presented here on referral by her general surgeon. She was referred to general surgeon after she presented to her PCP with an opening of her 10 year surgical scar. This was said to be sudden in onset without any known precipitating factor. There has been no discharge from the site and no increased tenderness around the area either. She had been cleaning with hydrogen peroxide and dressing with gauze as recommended by her surgeon. She has a history of prior surgical wound dehiscence and these were as a result of undissolved sutures. She feels well otherwise. As stated earlier she denies any discharge from the wound site. She also denies chills, fever or otherwise feeling of unwell. Progress of Wound: Stable. No new compliants today. - Physical Exam Vital Signs Temp Pulse Resp BP 97.1 F L 81 18 158/92 H 03/17/17 10:10 03/17/17 10:10 03/17/17 10:10 03/17/17 10:10 General: Alert, Oriented x3, Cooperative, No apparent distress HEENT: Atraumatic, Normocephalic Oral: Moist Mucosa Neck: Supple Cardiovascular: Regular rate Abdomen: Soft, - - Ileostomy bag in place. Wound Measurements and Assessment WC - Nurse 1 - General Ulcer Measurement Start: 03/10/17 09:07 Freq: Status: Active Protocol: Activity Type Activity Date Activity User E-Sign Co-Sign Detail Recorded Client Recorded Date Recorded By Document 03/17/17 10:10 [facility] [id number] 03/17/17 10:18 [facility] 03/17/17 10:10 Wound Center Nurse 1 [Ulcer Assessment Protocol: WC.WD.LOC] 1. RLQ -Combined with other wound No -Current Size (cm) - Length 0.3 -Current Size (cm) - Width 1 -Current Size (cm) - Depth 1.6 -Total Square Cm 0.3 -Photo Taken No -Epithelialization None Present -Tunneling No -Undermining/Tunneling No -Exudate Amt Medium (34-66%) -Exudate Type Sanguineous -Wound Margin Distinct, Outline Attached -Granulation Amt Large (67-100%) -Granulation Quality Red -Slough/Fibrin No -Necrosis Amt None Present (0 %) -Structure Exposed N/A -Texture (Fay-wound Skin Appearance) Scarring -Moisture (Fay-wound Skin Appearance Assessed ) -Color (Fay-wound Skin Appearance) Assessed -Temperature (Fay-wound Skin No Abnormality Appearance) (Pt Warm) -Tenderness on Palpation (Fay-wound Yes Skin Appearance) -Ulcer Cleansing Rinsed/ Irrigated with Saline -Foul Odor after Cleansing No -Anesthetic Used 4% Lidocaine Solution - Nurse 2 - General Ulcer CM Notes Start: 03/10/17 09:07 Freq: Status: Active Protocol: Activity Type Activity Date Activity User E-Sign Co-Sign Detail Recorded Client Recorded Date Recorded By Document 03/17/17 11:51 [id number] 03/17/17 11:54 DV 03/17/17 11:51 Wound Center Nurse 2 [Procedure/Treatment] -Time 11:52 -Correct Patient Yes -Correct Side, Site, Position Yes -Correct Procedure Yes -Procedure Performed Yes -Type of Procedure Debridement -Clinical Debridement Subcutaneous -Post Debridement Size (cm) - Length 0.5 -Post Debridement Size (cm) - Width 1.1 -Post Debridement Size (cm) - Depth 0.5 -Total Square Cm 0.55 -Wound/Ulcer Outcome Not Healed -Ulcer Cleansing Rinsed/ Irrigated with Saline -Foul Odor after Cleansing No -Bioengineered Tissue No -Cetacaine [place] No -Bleeding Controlled with Pressure -Treatment Response Procedure Tolerated Well [See Physician Procedure note for Specifics] Pain Scale: 0-10 Numeric [Pain] -Is Patient Pain Free? Yes Neurological: Cranial nerves II-XII grossly intact Debridement Note Post-Debridement Measurements/Treatment WC - Nurse 2 - General Ulcer CM Notes Start: 03/10/17 09:07 Freq: Status: Active Protocol: Activity Type Activity Date Activity User E-Sign Co-Sign Detail Recorded Client Recorded Date Recorded By Document 03/10/17 09:58 DV [id number] 03/10/17 10:00 DV Document 03/17/17 11:51 DV [id number] 03/17/17 11:54 DV 03/10/17 03/17/17 09:58 11:51 Wound Center Nurse 2 1. RLQ -Time 09:58 11:52 -Correct Patient Yes Yes -Correct Side, Site, Position Yes Yes -Correct Procedure Yes Yes -Procedure Performed Yes Yes -Type of Procedure Debridement Debridement -Clinical Debridement Subcutaneous Subcutaneous -Post Debridement Size (cm) - Length 0.7 0.5 -Post Debridement Size (cm) - Width 1.4 1.1 -Post Debridement Size (cm) - Depth 0.5 0.5 -Total Square Cm 0.98 0.55 -Wound/Ulcer Outcome Not Healed Not Healed -Ulcer Cleansing Rinsed/ Rinsed/ Irrigated with Irrigated with Saline Saline -Foul Odor after Cleansing No No -Bioengineered Tissue No No -Cetacaine [place] No No -Bleeding Controlled with Pressure Pressure -Treatment Response Procedure Procedure Tolerated Well Tolerated Well Pain Scale: 0-10 Numeric Is Patient Pain Free? Yes Yes Type of Debridement: Excisional debridement Anesthesia Used: 4% Lidocaine Solution Depth: Down to and including healthy tissue, in the subcutaneous layer Percentage of wound debrided: 100 Instrument Used: 3mm curette Tissue Removed: Slough Amount of bleeding with debridement: Mild Bleeding Controlled with: Pressure Patient tolerated procedure well Assessment/Plan Active Problems (Last Reviewed 03/10/17 @ 15:50 by DERIC Banks) Surgical wound dehiscence (Acute) DM2 (diabetes mellitus, type 2) (Chronic) Assessment: Abdominal wound dehiscence of a 10 year surgical scar. Diabetes mellitus type 2 poorly controlled. Plan: Ms. Artis is doing well. Wound tunelling with slight reduction in size. Wound size also slightly reduced. Continue daily packing with aquacel. Continue increased protein intake. Continue optimal blood sugar control. Follow up in 1 week. This note was generated with [employer]ation software. It may contain incorrect words, spelling, and punctuation that were not noted in checking the note before signing.
[2017-03-24 11:18] VITALS: BP 137/68; PULSE 66; RESP 18; TEMP 36.9
--- NOTE | 2017-03-24 14:09 | PCM.WC.PN ---
(1) Surgical wound dehiscence Status: Acute Qualifiers: Encounter type: subsequent encounter Qualified Code(s): T81.31XD - Disruption of external operation (surgical) wound, not elsewhere classified, subsequent encounter Code(s): T81.31XA - Disruption of external operation (surgical) wound, not elsewhere classified, initial encounter (2) DM2 (diabetes mellitus, type 2) Status: Chronic Qualifiers: Code(s): E11.9 - Type 2 diabetes mellitus without complications (3) Gastroparesis Status: Suspected Code(s): K31.84 - Gastroparesis (4) Ulcerative colitis Status: Chronic Code(s): K51.90 - Ulcerative colitis, unspecified, without complications Comment: Status post ileostomy Type of Wound Date of Service: 03/24/17 Chief Complaint: Right sided abdominal wound. History of Wound: Ms. Artis is a 56yo with an extensive past medical history who presented here on referral by her general surgeon. She was referred to general surgeon after she presented to her PCP with an opening of her 10 year surgical scar. This was said to be sudden in onset without any known precipitating factor. There has been no discharge from the site and no increased tenderness around the area either. She had been cleaning with hydrogen peroxide and dressing with gauze as recommended by her surgeon. She has a history of prior surgical wound dehiscence and these were as a result of undissolved sutures. She feels well otherwise. As stated earlier she denies any discharge from the wound site. She also denies chills, fever or otherwise feeling of unwell. Progress of Wound: No significant changes. - Physical Exam Vital Signs Temp Pulse Resp BP 98.4 F 66 18 137/68 H 03/24/17 11:18 03/24/17 11:18 03/24/17 11:18 03/24/17 11:18 General: Alert, Oriented x3, Cooperative, No apparent distress HEENT: Atraumatic, Normocephalic Oral: Moist Mucosa Neck: Supple Lungs: Normal air movement Cardiovascular: Regular rate Abdomen: Soft, Obese Extremities: No cyanosis Wound Measurements and Assessment WC - Nurse 1 - General Ulcer Measurement Start: 03/10/17 09:07 Freq: Status: Active Protocol: Activity Type Activity Date Activity User E-Sign Co-Sign Detail Recorded Client Recorded Date Recorded By Document 03/24/17 11:18 [id number] 03/24/17 11:20 03/24/17 11:18 Wound Center Nurse 1 [Ulcer Assessment Protocol: ROSA.WD.LOC] 1. RLQ -Combined with other wound No -Current Size (cm) - Length 0.5 -Current Size (cm) - Width 1.1 -Current Size (cm) - Depth 4.0 -Total Square Cm 0.55 -Photo Taken No -Epithelialization None Present -Tunneling No -Undermining/Tunneling No -Circular Undermining No -Exudate Amt Medium (34-66%) -Exudate Type Serosanguineous -Wound Margin Flat & Intact -Granulation Amt Large (67-100%) -Granulation Quality Red -Slough/Fibrin Yes -Necrosis Amt Small (1-33%) -Necrotic Tissue Type Adherent Slough -Structure Exposed N/A -Texture (Fay-wound Skin Appearance) No Abnormality Assessed -Moisture (Fay-wound Skin Appearance Assessed ) Dry/Scaly -Color (Fay-wound Skin Appearance) No Abnormality Assessed -Temperature (Fay-wound Skin No Abnormality Appearance) (Pt Warm) -Tenderness on Palpation (Fay-wound No Skin Appearance) -Ulcer Cleansing Rinsed/ Irrigated with Saline -Foul Odor after Cleansing No -Anesthetic Used 4% Lidocaine Solution [Edema Assessment] -Lower Limb Edema Present NA - Nurse 2 - General Ulcer CM Notes Start: 03/10/17 09:07 Freq: Status: Active Protocol: Activity Type Activity Date Activity User E-Sign Co-Sign Detail Recorded Client Recorded Date Recorded By Document 03/24/17 12:22 [id number] 03/24/17 12:26 NOE 03/24/17 12:22 Wound Center Nurse 2 [Procedure/Treatment] 1. RLQ -Time 12:23 -Correct Patient Yes -Correct Side, Site, Position Yes -Correct Procedure Yes -Procedure Performed Yes -Type of Procedure Debridement -Clinical Debridement Subcutaneous -Post Debridement Size (cm) - Length 0.5 -Post Debridement Size (cm) - Width 1.3 -Post Debridement Size (cm) - Depth 0.4 -Total Square Cm 0.65 -Wound/Ulcer Outcome Not Healed -Ulcer Cleansing Rinsed/ Irrigated with Saline -Foul Odor after Cleansing No -Bioengineered Tissue No -Cetacaine [place] No -Bleeding Controlled with Pressure -Treatment Response Procedure Tolerated Well [See Physician Procedure note for Specifics] Pain Scale: 0-10 Numeric [Pain] -Is Patient Pain Free? Yes Neurological: Cranial nerves II-XII grossly intact Debridement Note Post-Debridement Measurements/Treatment WC - Nurse 2 - General Ulcer CM Notes Start: 03/10/17 09:07 Freq: Status: Active Protocol: Activity Type Activity Date Activity User E-Sign Co-Sign Detail Recorded Client Recorded Date Recorded By Document 03/10/17 09:58 DV [id number] 03/10/17 10:00 DV Document 03/17/17 11:51 DV [id number] 03/17/17 11:54 DV Document 03/24/17 12:22 DV [id number] 03/24/17 12:26 DV 03/10/17 03/17/17 03/24/17 09:58 11:51 12:22 Wound Center Nurse 2 1. RLQ -Time 09:58 11:52 12:23 -Correct Patient Yes Yes Yes -Correct Side, Site, Position Yes Yes Yes -Correct Procedure Yes Yes Yes -Procedure Performed Yes Yes Yes -Type of Procedure Debridement Debridement Debridement -Clinical Debridement Subcutaneous Subcutaneous Subcutaneous -Post Debridement Size (cm) - Length 0.7 0.5 0.5 -Post Debridement Size (cm) - Width 1.4 1.1 1.3 -Post Debridement Size (cm) - Depth 0.5 0.5 0.4 -Total Square Cm 0.98 0.55 0.65 -Wound/Ulcer Outcome Not Healed Not Healed Not Healed -Ulcer Cleansing Rinsed/ Rinsed/ Rinsed/ Irrigated with Irrigated with Irrigated with Saline Saline Saline -Foul Odor after Cleansing No No No -Bioengineered Tissue No No No -Cetacaine [place] No No No -Bleeding Controlled with Pressure Pressure Pressure -Treatment Response Procedure Procedure Procedure Tolerated Well Tolerated Well Tolerated Well Pain Scale: 0-10 Numeric Is Patient Pain Free? Yes Yes Yes Type of Debridement: Excisional debridement Anesthesia Used: 4% Lidocaine Solution Depth: Down to and including healthy tissue, in the subcutaneous layer Percentage of wound debrided: 100 Instrument Used: 3mm curette Tissue Removed: Biofilm,Slough Amount of bleeding with debridement: Mild Bleeding Controlled with: Pressure Patient tolerated procedure well Assessment/Plan Assessment: Abdominal wound dehiscence of a 10 year surgical scar. Diabetes mellitus type 2 poorly controlled. Plan: No significant change in wound size or tunneling today. She however notes umbilical pain and discharge and lower abdominal surgical scar extension. These features are possibly concerning for enterocutaneous fistula formation. She has a history of ulcerative colitis. Will get a plain abdominal CT due to history of CKD 3. Continue Aquacel to abdominal wound tunneling and Promogran to surface area. Continue increased protein intake. Continue optimal blood sugar control. Follow up in 1 week. This note was generated with [employer] dictation software. It may contain incorrect words, spelling, and punctuation that were not noted in checking the note before signing.
--- NOTE | 2017-03-24 14:17 | PN.PCM_ITS ---
(1) Surgical wound dehiscence Status: Acute Qualifiers: Encounter type: subsequent encounter Qualified Code(s): T81.31XD - Disruption of external operation (surgical) wound, not elsewhere classified, subsequent encounter Code(s): T81.31XA - Disruption of external operation (surgical) wound, not elsewhere classified, initial encounter (2) DM2 (diabetes mellitus, type 2) Status: Chronic Qualifiers: Code(s): E11.9 - Type 2 diabetes mellitus without complications (3) Gastroparesis Status: Suspected Code(s): K31.84 - Gastroparesis (4) Ulcerative colitis Status: Chronic Code(s): K51.90 - Ulcerative colitis, unspecified, without complications Comment: Status post ileostomy Type of Wound Date of Service: 03/24/17 Chief Complaint: Right sided abdominal wound. History of Wound: Ms. Artis is a 56yo with an extensive past medical history who presented here on referral by her general surgeon. She was referred to general surgeon after she presented to her PCP with an opening of her 10 year surgical scar. This was said to be sudden in onset without any known precipitating factor. There has been no discharge from the site and no increased tenderness around the area either. She had been cleaning with hydrogen peroxide and dressing with gauze as recommended by her surgeon. She has a history of prior surgical wound dehiscence and these were as a result of undissolved sutures. She feels well otherwise. As stated earlier she denies any discharge from the wound site. She also denies chills, fever or otherwise feeling of unwell. Progress of Wound: No significant changes. - Physical Exam Vital Signs Temp Pulse Resp BP 98.4 F 66 18 137/68 H 03/24/17 11:18 03/24/17 11:18 03/24/17 11:18 03/24/17 11:18 General: Alert, Oriented x3, Cooperative, No apparent distress HEENT: Atraumatic, Normocephalic Oral: Moist Mucosa Neck: Supple Lungs: Normal air movement Cardiovascular: Regular rate Abdomen: Soft, Obese Extremities: No cyanosis Wound Measurements and Assessment WC - Nurse 1 - General Ulcer Measurement Start: 03/10/17 09:07 Freq: Status: Active Protocol: Activity Type Activity Date Activity User E-Sign Co-Sign Detail Recorded Client Recorded Date Recorded By Document 03/24/17 11:18 [id number] 03/24/17 11:20 03/24/17 11:18 Wound Center Nurse 1 [Ulcer Assessment Protocol: ROSA.WD.LOC] 1. RLQ -Combined with other wound No -Current Size (cm) - Length 0.5 -Current Size (cm) - Width 1.1 -Current Size (cm) - Depth 4.0 -Total Square Cm 0.55 -Photo Taken No -Epithelialization None Present -Tunneling No -Undermining/Tunneling No -Circular Undermining No -Exudate Amt Medium (34-66%) -Exudate Type Serosanguineous -Wound Margin Flat & Intact -Granulation Amt Large (67-100%) -Granulation Quality Red -Slough/Fibrin Yes -Necrosis Amt Small (1-33%) -Necrotic Tissue Type Adherent Slough -Structure Exposed N/A -Texture (Fay-wound Skin Appearance) No Abnormality Assessed -Moisture (Fay-wound Skin Appearance Assessed ) Dry/Scaly -Color (Fay-wound Skin Appearance) No Abnormality Assessed -Temperature (Fay-wound Skin No Abnormality Appearance) (Pt Warm) -Tenderness on Palpation (Fay-wound No Skin Appearance) -Ulcer Cleansing Rinsed/ Irrigated with Saline -Foul Odor after Cleansing No -Anesthetic Used 4% Lidocaine Solution [Edema Assessment] -Lower Limb Edema Present NA - Nurse 2 - General Ulcer CM Notes Start: 03/10/17 09:07 Freq: Status: Active Protocol: Activity Type Activity Date Activity User E-Sign Co-Sign Detail Recorded Client Recorded Date Recorded By Document 03/24/17 12:22 [id number] 03/24/17 12:26 NOE 03/24/17 12:22 Wound Center Nurse 2 [Procedure/Treatment] 1. RLQ -Time 12:23 -Correct Patient Yes -Correct Side, Site, Position Yes -Correct Procedure Yes -Procedure Performed Yes -Type of Procedure Debridement -Clinical Debridement Subcutaneous -Post Debridement Size (cm) - Length 0.5 -Post Debridement Size (cm) - Width 1.3 -Post Debridement Size (cm) - Depth 0.4 -Total Square Cm 0.65 -Wound/Ulcer Outcome Not Healed -Ulcer Cleansing Rinsed/ Irrigated with Saline -Foul Odor after Cleansing No -Bioengineered Tissue No -Cetacaine [place] No -Bleeding Controlled with Pressure -Treatment Response Procedure Tolerated Well [See Physician Procedure note for Specifics] Pain Scale: 0-10 Numeric [Pain] -Is Patient Pain Free? Yes Neurological: Cranial nerves II-XII grossly intact Debridement Note Post-Debridement Measurements/Treatment WC - Nurse 2 - General Ulcer CM Notes Start: 03/10/17 09:07 Freq: Status: Active Protocol: Activity Type Activity Date Activity User E-Sign Co-Sign Detail Recorded Client Recorded Date Recorded By Document 03/10/17 09:58 DV [id number] 03/10/17 10:00 DV Document 03/17/17 11:51 DV [id number] 03/17/17 11:54 DV Document 03/24/17 12:22 DV [id number] 03/24/17 12:26 DV 03/10/17 03/17/17 03/24/17 09:58 11:51 12:22 Wound Center Nurse 2 1. RLQ -Time 09:58 11:52 12:23 -Correct Patient Yes Yes Yes -Correct Side, Site, Position Yes Yes Yes -Correct Procedure Yes Yes Yes -Procedure Performed Yes Yes Yes -Type of Procedure Debridement Debridement Debridement -Clinical Debridement Subcutaneous Subcutaneous Subcutaneous -Post Debridement Size (cm) - Length 0.7 0.5 0.5 -Post Debridement Size (cm) - Width 1.4 1.1 1.3 -Post Debridement Size (cm) - Depth 0.5 0.5 0.4 -Total Square Cm 0.98 0.55 0.65 -Wound/Ulcer Outcome Not Healed Not Healed Not Healed -Ulcer Cleansing Rinsed/ Rinsed/ Rinsed/ Irrigated with Irrigated with Irrigated with Saline Saline Saline -Foul Odor after Cleansing No No No -Bioengineered Tissue No No No -Cetacaine [place] No No No -Bleeding Controlled with Pressure Pressure Pressure -Treatment Response Procedure Procedure Procedure Tolerated Well Tolerated Well Tolerated Well Pain Scale: 0-10 Numeric Is Patient Pain Free? Yes Yes Yes Type of Debridement: Excisional debridement Anesthesia Used: 4% Lidocaine Solution Depth: Down to and including healthy tissue, in the subcutaneous layer Percentage of wound debrided: 100 Instrument Used: 3mm curette Tissue Removed: Biofilm,Slough Amount of bleeding with debridement: Mild Bleeding Controlled with: Pressure Patient tolerated procedure well Assessment/Plan Assessment: Abdominal wound dehiscence of a 10 year surgical scar. Diabetes mellitus type 2 poorly controlled. Plan: No significant change in wound size or tunneling today. She however notes umbilical pain and discharge and lower abdominal surgical scar extension. These features are possibly concerning for enterocutaneous fistula formation. She has a history of ulcerative colitis. Will get a plain abdominal CT due to history of CKD 3. Continue Aquacel to abdominal wound tunneling and Promogran to surface area. Continue increased protein intake. Continue optimal blood sugar control. Follow up in 1 week. This note was generated with [employer] dictation software. It may contain incorrect words, spelling, and punctuation that were not noted in checking the note before signing.
[2017-03-31 08:43] VITALS: BP 131/73; PULSE 79; RESP 16; TEMP 35.9
--- NOTE | 2017-03-31 09:27 | PCM.WC.PN ---
(1) Surgical wound dehiscence Status: Acute Current Visit: No Qualifiers: Encounter type: subsequent encounter Qualified Code(s): T81.31XD - Disruption of external operation (surgical) wound, not elsewhere classified, subsequent encounter Code(s): T81.31XA - Disruption of external operation (surgical) wound, not elsewhere classified, initial encounter (2) DM2 (diabetes mellitus, type 2) Status: Chronic Current Visit: No Qualifiers: Code(s): E11.9 - Type 2 diabetes mellitus without complications (3) Gastroparesis Status: Suspected Current Visit: No Code(s): K31.84 - Gastroparesis (4) Ulcerative colitis Status: Chronic Current Visit: No Code(s): K51.90 - Ulcerative colitis, unspecified, without complications Comment: Status post ileostomy Type of Wound Date of Service: 03/31/17 Chief Complaint: Right sided abdominal wound. History of Wound: Ms. Artis is a 56yo with an extensive past medical history who presented here on referral by her general surgeon. She was referred to general surgeon after she presented to her PCP with an opening of her 10 year surgical scar. This was said to be sudden in onset without any known precipitating factor. There has been no discharge from the site and no increased tenderness around the area either. She had been cleaning with hydrogen peroxide and dressing with gauze as recommended by her surgeon. She has a history of prior surgical wound dehiscence and these were as a result of undissolved sutures. She feels well otherwise. As stated earlier she denies any discharge from the wound site. She also denies chills, fever or otherwise feeling of unwell. Progress of Wound: No significant changes. She however has noted stinging from the wound over the past week. she denies any discharge from the site. - Physical Exam Vital Signs Temp Pulse Resp BP 96.6 F L 79 16 131/73 H 03/31/17 08:43 03/31/17 08:43 03/31/17 08:43 03/31/17 08:43 General: Alert, Oriented x3, Cooperative, No apparent distress HEENT: Atraumatic, Normocephalic Oral: Moist Mucosa Neck: Supple Lungs: Normal air movement Cardiovascular: Regular rate Abdomen: Soft, Obese Extremities: No cyanosis Wound Measurements and Assessment WC - Nurse 1 - General Ulcer Measurement Start: 03/10/17 09:07 Freq: Status: Active Protocol: Activity Type Activity Date Activity User E-Sign Co-Sign Detail Recorded Client Recorded Date Recorded By Document 03/31/17 08:43 MW [id number] 03/31/17 08:46 MW 03/31/17 08:43 Wound Center Nurse 1 [Ulcer Assessment Protocol: WC.WD.LOC] 1. RLQ -Combined with other wound No -Current Size (cm) - Length 0.4 -Current Size (cm) - Width 1.0 -Current Size (cm) - Depth 3.9 -Total Square Cm 0.40 -Date of Last Picture (Recall this 03/31/17 field) -Photo Taken Yes -Epithelialization None Present -Tunneling No -Undermining/Tunneling No -Circular Undermining No -Exudate Amt Small (1-33%) -Exudate Type Sanguineous -Wound Margin Indistinct, Non -Visible -Granulation Amt Medium (34-66%) -Granulation Quality Red -Slough/Fibrin Yes -Necrosis Amt Small (1-33%) -Necrotic Tissue Type Adherent Slough -Structure Exposed N/A -Texture (Fay-wound Skin Appearance) Assessed Scarring -Moisture (Fay-wound Skin Appearance No Abnormality ) Assessed -Color (Fay-wound Skin Appearance) No Abnormality Assessed -Temperature (Fay-wound Skin No Abnormality Appearance) (Pt Warm) -Tenderness on Palpation (Fay-wound No Skin Appearance) -Ulcer Cleansing Rinsed/ Irrigated with Saline -Foul Odor after Cleansing No -Anesthetic Used 4% Lidocaine Solution [Edema Assessment] -Lower Limb Edema Present No - Nurse 2 - General Ulcer CM Notes Start: 03/10/17 09:07 Freq: Status: Active Protocol: Activity Type Activity Date Activity User E-Sign Co-Sign Detail Recorded Client Recorded Date Recorded By Document 03/31/17 09:06 DV [id number] 03/31/17 09:10 DV 03/31/17 09:06 Wound Center Nurse 2 [Procedure/Treatment] 1. RLQ -Time 09:08 -Correct Patient Yes -Correct Side, Site, Position Yes -Correct Procedure Yes -Procedure Performed Yes -Type of Procedure Debridement -Clinical Debridement Subcutaneous -Post Debridement Size (cm) - Length 0.4 -Post Debridement Size (cm) - Width 1.1 -Post Debridement Size (cm) - Depth 0.5 -Total Square Cm 0.44 -Wound/Ulcer Outcome Not Healed -Ulcer Cleansing Rinsed/ Irrigated with Saline -Foul Odor after Cleansing No -Bioengineered Tissue No -Cetacaine [place] No -Bleeding Controlled with Pressure -Treatment Response Procedure Tolerated Well [See Physician Procedure note for Specifics] Pain Scale: 0-10 Numeric [Pain] -Is Patient Pain Free? Yes Musculoskeletal: No Muscle Wasting Neurological: Cranial nerves II-XII grossly intact Psych/Mental Status: Normal Affect Debridement Note Post-Debridement Measurements/Treatment WC - Nurse 2 - General Ulcer CM Notes Start: 03/10/17 09:07 Freq: Status: Active Protocol: Activity Type Activity Date Activity User E-Sign Co-Sign Detail Recorded Client Recorded Date Recorded By Document 03/10/17 09:58 DV [id number] 03/10/17 10:00 DV Document 03/17/17 11:51 DV [id number] 03/17/17 11:54 DV Document 03/24/17 12:22 DV [id number] 03/24/17 12:26 DV Document 03/31/17 09:06 DV [id number] 03/31/17 09:10 DV 03/10/17 03/17/17 03/24/17 09:58 11:51 12:22 Wound Center Nurse 2 1. RLQ -Time 09:58 11:52 12:23 -Correct Patient Yes Yes Yes -Correct Side, Site, Position Yes Yes Yes -Correct Procedure Yes Yes Yes -Procedure Performed Yes Yes Yes -Type of Procedure Debridement Debridement Debridement -Clinical Debridement Subcutaneous Subcutaneous Subcutaneous -Post Debridement Size (cm) - Length 0.7 0.5 0.5 -Post Debridement Size (cm) - Width 1.4 1.1 1.3 -Post Debridement Size (cm) - Depth 0.5 0.5 0.4 -Total Square Cm 0.98 0.55 0.65 -Wound/Ulcer Outcome Not Healed Not Healed Not Healed -Ulcer Cleansing Rinsed/ Rinsed/ Rinsed/ Irrigated with Irrigated with Irrigated with Saline Saline Saline -Foul Odor after Cleansing No No No -Bioengineered Tissue No No No -Cetacaine [place] No No No -Bleeding Controlled with Pressure Pressure Pressure -Treatment Response Procedure Procedure Procedure Tolerated Well Tolerated Well Tolerated Well Pain Scale: 0-10 Numeric Is Patient Pain Free? Yes Yes Yes 03/31/17 09:06 Wound Center Nurse 2 1. RLQ -Time 09:08 -Correct Patient Yes -Correct Side, Site, Position Yes -Correct Procedure Yes -Procedure Performed Yes -Type of Procedure Debridement -Clinical Debridement Subcutaneous -Post Debridement Size (cm) - Length 0.4 -Post Debridement Size (cm) - Width 1.1 -Post Debridement Size (cm) - Depth 0.5 -Total Square Cm 0.44 -Wound/Ulcer Outcome Not Healed -Ulcer Cleansing Rinsed/ Irrigated with Saline -Foul Odor after Cleansing No -Bioengineered Tissue No -Cetacaine [place] No -Bleeding Controlled with Pressure -Treatment Response Procedure Tolerated Well Pain Scale: 0-10 Numeric Is Patient Pain Free? Yes Wound debrided: Abdominal wound Type of Debridement: Excisional debridement Anesthesia Used: 4% Lidocaine Solution Depth: in the subcutaneous layer Percentage of wound debrided: 100 Instrument Used: 3mm curette Tissue Removed: Slough. Amount of bleeding with debridement: Mild Bleeding Controlled with: Pressure Patient tolerated procedure well Assessment/Plan Assessment: Abdominal wound dehiscence of a 10 year surgical scar. Diabetes mellitus type 2 poorly controlled. Ulcerative Colitis. Plan: Cultures taken due to stinging reported by patient. CT not done yet. Wound size is reducing however depth has remained the same. I believe she will benefit from a wound Vac. Will start out the application process. Continue aquacel to tunelling and promogram over top. Continue increased protein intake. Continue optimal blood sugar control. Follow up in 1 week. This note was generated with [employer] dictation software. It may contain incorrect words, spelling, and punctuation that were not noted in checking the note before signing.
--- NOTE | 2017-03-31 09:33 | PN.PCM_ITS ---
(1) Surgical wound dehiscence Status: Acute Current Visit: No Qualifiers: Encounter type: subsequent encounter Qualified Code(s): T81.31XD - Disruption of external operation (surgical) wound, not elsewhere classified, subsequent encounter Code(s): T81.31XA - Disruption of external operation (surgical) wound, not elsewhere classified, initial encounter (2) DM2 (diabetes mellitus, type 2) Status: Chronic Current Visit: No Qualifiers: Code(s): E11.9 - Type 2 diabetes mellitus without complications (3) Gastroparesis Status: Suspected Current Visit: No Code(s): K31.84 - Gastroparesis (4) Ulcerative colitis Status: Chronic Current Visit: No Code(s): K51.90 - Ulcerative colitis, unspecified, without complications Comment: Status post ileostomy Type of Wound Date of Service: 03/31/17 Chief Complaint: Right sided abdominal wound. History of Wound: Ms. Artis is a 56yo with an extensive past medical history who presented here on referral by her general surgeon. She was referred to general surgeon after she presented to her PCP with an opening of her 10 year surgical scar. This was said to be sudden in onset without any known precipitating factor. There has been no discharge from the site and no increased tenderness around the area either. She had been cleaning with hydrogen peroxide and dressing with gauze as recommended by her surgeon. She has a history of prior surgical wound dehiscence and these were as a result of undissolved sutures. She feels well otherwise. As stated earlier she denies any discharge from the wound site. She also denies chills, fever or otherwise feeling of unwell. Progress of Wound: No significant changes. She however has noted stinging from the wound over the past week. she denies any discharge from the site. - Physical Exam Vital Signs Temp Pulse Resp BP 96.6 F L 79 16 131/73 H 03/31/17 08:43 03/31/17 08:43 03/31/17 08:43 03/31/17 08:43 General: Alert, Oriented x3, Cooperative, No apparent distress HEENT: Atraumatic, Normocephalic Oral: Moist Mucosa Neck: Supple Lungs: Normal air movement Cardiovascular: Regular rate Abdomen: Soft, Obese Extremities: No cyanosis Wound Measurements and Assessment WC - Nurse 1 - General Ulcer Measurement Start: 03/10/17 09:07 Freq: Status: Active Protocol: Activity Type Activity Date Activity User E-Sign Co-Sign Detail Recorded Client Recorded Date Recorded By Document 03/31/17 08:43 MW [id number] 03/31/17 08:46 MW 03/31/17 08:43 Wound Center Nurse 1 [Ulcer Assessment Protocol: WC.WD.LOC] 1. RLQ -Combined with other wound No -Current Size (cm) - Length 0.4 -Current Size (cm) - Width 1.0 -Current Size (cm) - Depth 3.9 -Total Square Cm 0.40 -Date of Last Picture (Recall this 03/31/17 field) -Photo Taken Yes -Epithelialization None Present -Tunneling No -Undermining/Tunneling No -Circular Undermining No -Exudate Amt Small (1-33%) -Exudate Type Sanguineous -Wound Margin Indistinct, Non -Visible -Granulation Amt Medium (34-66%) -Granulation Quality Red -Slough/Fibrin Yes -Necrosis Amt Small (1-33%) -Necrotic Tissue Type Adherent Slough -Structure Exposed N/A -Texture (Fay-wound Skin Appearance) Assessed Scarring -Moisture (Fay-wound Skin Appearance No Abnormality ) Assessed -Color (Fay-wound Skin Appearance) No Abnormality Assessed -Temperature (Fay-wound Skin No Abnormality Appearance) (Pt Warm) -Tenderness on Palpation (Fay-wound No Skin Appearance) -Ulcer Cleansing Rinsed/ Irrigated with Saline -Foul Odor after Cleansing No -Anesthetic Used 4% Lidocaine Solution [Edema Assessment] -Lower Limb Edema Present No - Nurse 2 - General Ulcer CM Notes Start: 03/10/17 09:07 Freq: Status: Active Protocol: Activity Type Activity Date Activity User E-Sign Co-Sign Detail Recorded Client Recorded Date Recorded By Document 03/31/17 09:06 DV [id number] 03/31/17 09:10 DV 03/31/17 09:06 Wound Center Nurse 2 [Procedure/Treatment] 1. RLQ -Time 09:08 -Correct Patient Yes -Correct Side, Site, Position Yes -Correct Procedure Yes -Procedure Performed Yes -Type of Procedure Debridement -Clinical Debridement Subcutaneous -Post Debridement Size (cm) - Length 0.4 -Post Debridement Size (cm) - Width 1.1 -Post Debridement Size (cm) - Depth 0.5 -Total Square Cm 0.44 -Wound/Ulcer Outcome Not Healed -Ulcer Cleansing Rinsed/ Irrigated with Saline -Foul Odor after Cleansing No -Bioengineered Tissue No -Cetacaine [place] No -Bleeding Controlled with Pressure -Treatment Response Procedure Tolerated Well [See Physician Procedure note for Specifics] Pain Scale: 0-10 Numeric [Pain] -Is Patient Pain Free? Yes Musculoskeletal: No Muscle Wasting Neurological: Cranial nerves II-XII grossly intact Psych/Mental Status: Normal Affect Debridement Note Post-Debridement Measurements/Treatment WC - Nurse 2 - General Ulcer CM Notes Start: 03/10/17 09:07 Freq: Status: Active Protocol: Activity Type Activity Date Activity User E-Sign Co-Sign Detail Recorded Client Recorded Date Recorded By Document 03/10/17 09:58 DV [id number] 03/10/17 10:00 DV Document 03/17/17 11:51 DV [id number] 03/17/17 11:54 DV Document 03/24/17 12:22 DV [id number] 03/24/17 12:26 DV Document 03/31/17 09:06 DV [id number] 03/31/17 09:10 DV 03/10/17 03/17/17 03/24/17 09:58 11:51 12:22 Wound Center Nurse 2 1. RLQ -Time 09:58 11:52 12:23 -Correct Patient Yes Yes Yes -Correct Side, Site, Position Yes Yes Yes -Correct Procedure Yes Yes Yes -Procedure Performed Yes Yes Yes -Type of Procedure Debridement Debridement Debridement -Clinical Debridement Subcutaneous Subcutaneous Subcutaneous -Post Debridement Size (cm) - Length 0.7 0.5 0.5 -Post Debridement Size (cm) - Width 1.4 1.1 1.3 -Post Debridement Size (cm) - Depth 0.5 0.5 0.4 -Total Square Cm 0.98 0.55 0.65 -Wound/Ulcer Outcome Not Healed Not Healed Not Healed -Ulcer Cleansing Rinsed/ Rinsed/ Rinsed/ Irrigated with Irrigated with Irrigated with Saline Saline Saline -Foul Odor after Cleansing No No No -Bioengineered Tissue No No No -Cetacaine [place] No No No -Bleeding Controlled with Pressure Pressure Pressure -Treatment Response Procedure Procedure Procedure Tolerated Well Tolerated Well Tolerated Well Pain Scale: 0-10 Numeric Is Patient Pain Free? Yes Yes Yes 03/31/17 09:06 Wound Center Nurse 2 1. RLQ -Time 09:08 -Correct Patient Yes -Correct Side, Site, Position Yes -Correct Procedure Yes -Procedure Performed Yes -Type of Procedure Debridement -Clinical Debridement Subcutaneous -Post Debridement Size (cm) - Length 0.4 -Post Debridement Size (cm) - Width 1.1 -Post Debridement Size (cm) - Depth 0.5 -Total Square Cm 0.44 -Wound/Ulcer Outcome Not Healed -Ulcer Cleansing Rinsed/ Irrigated with Saline -Foul Odor after Cleansing No -Bioengineered Tissue No -Cetacaine [place] No -Bleeding Controlled with Pressure -Treatment Response Procedure Tolerated Well Pain Scale: 0-10 Numeric Is Patient Pain Free? Yes Wound debrided: Abdominal wound Type of Debridement: Excisional debridement Anesthesia Used: 4% Lidocaine Solution Depth: in the subcutaneous layer Percentage of wound debrided: 100 Instrument Used: 3mm curette Tissue Removed: Slough. Amount of bleeding with debridement: Mild Bleeding Controlled with: Pressure Patient tolerated procedure well Assessment/Plan Assessment: Abdominal wound dehiscence of a 10 year surgical scar. Diabetes mellitus type 2 poorly controlled. Ulcerative Colitis. Plan: Cultures taken due to stinging reported by patient. CT not done yet. Wound size is reducing however depth has remained the same. I believe she will benefit from a wound Vac. Will start out the application process. Continue aquacel to tunelling and promogram over top. Continue increased protein intake. Continue optimal blood sugar control. Follow up in 1 week. This note was generated with [employer] dictation software. It may contain incorrect words, spelling, and punctuation that were not noted in checking the note before signing.
[2017-04-07 09:03] VITALS: BP 142/69; PULSE 73; RESP 16; TEMP 35.4
--- NOTE | 2017-04-07 09:55 | PCM.WC.PN ---
(1) Surgical wound dehiscence Status: Acute Current Visit: Yes Qualifiers: Encounter type: subsequent encounter Qualified Code(s): T81.31XD - Disruption of external operation (surgical) wound, not elsewhere classified, subsequent encounter Code(s): T81.31XA - Disruption of external operation (surgical) wound, not elsewhere classified, initial encounter (2) DM2 (diabetes mellitus, type 2) Status: Chronic Current Visit: Yes Qualifiers: Code(s): E11.9 - Type 2 diabetes mellitus without complications (3) Gastroparesis Status: Suspected Current Visit: No Code(s): K31.84 - Gastroparesis (4) Ulcerative colitis Status: Chronic Current Visit: No Code(s): K51.90 - Ulcerative colitis, unspecified, without complications Comment: Status post ileostomy Type of Wound Date of Service: 04/07/17 Chief Complaint: Right sided abdominal wound. History of Wound: Ms. Artis is a 56yo with an extensive past medical history who presented here on referral by her general surgeon. She was referred to general surgeon after she presented to her PCP with an opening of her 10 year surgical scar. This was said to be sudden in onset without any known precipitating factor. There has been no discharge from the site and no increased tenderness around the area either. She had been cleaning with hydrogen peroxide and dressing with gauze as recommended by her surgeon. She has a history of prior surgical wound dehiscence and these were as a result of undissolved sutures. She feels well otherwise. As stated earlier she denies any discharge from the wound site. She also denies chills, fever or otherwise feeling of unwell. Progress of Wound: Still no significant changes. Cultures done on the last visit with rare growth of staph epidermidis. - Physical Exam Vital Signs Temp Pulse Resp BP 95.7 F L 73 16 142/69 H 04/07/17 09:03 04/07/17 09:03 04/07/17 09:03 04/07/17 09:03 General: Alert, Oriented x3, Cooperative, No apparent distress HEENT: Atraumatic, Normocephalic Oral: Moist Mucosa Neck: Supple Lungs: Normal air movement Cardiovascular: Regular rate Abdomen: Soft Extremities: No cyanosis Wound Measurements and Assessment WC - Nurse 1 - General Ulcer Measurement Start: 03/10/17 09:07 Freq: Status: Active Protocol: Activity Type Activity Date Activity User E-Sign Co-Sign Detail Recorded Client Recorded Date Recorded By Document 04/07/17 09:03 MW [id number] 04/07/17 09:09 MW 04/07/17 09:03 Wound Center Nurse 1 [Ulcer Assessment Protocol: WC.WD.LOC] 1. RLQ -Combined with other wound No -Current Size (cm) - Length 0.3 -Current Size (cm) - Width 0.9 -Current Size (cm) - Depth 3.9 -Total Square Cm 0.27 -Photo Taken No -Epithelialization None Present -Tunneling No -Undermining/Tunneling No -Circular Undermining No -Exudate Amt Small (1-33%) -Exudate Type Serosanguineous -Wound Margin Indistinct, Non -Visible -Granulation Amt Small (1-33%) -Granulation Quality [place] -Slough/Fibrin Yes -Necrosis Amt Small (1-33%) -Necrotic Tissue Type Adherent Slough -Structure Exposed N/A -Texture (Fay-wound Skin Appearance) No Abnormality Assessed -Moisture (Fay-wound Skin Appearance No Abnormality ) Assessed -Color (Fay-wound Skin Appearance) No Abnormality Assessed -Temperature (Fay-wound Skin No Abnormality Appearance) (Pt Warm) -Tenderness on Palpation (Fay-wound Yes Skin Appearance) -Ulcer Cleansing Rinsed/ Irrigated with Saline -Foul Odor after Cleansing No -Anesthetic Used 4% Lidocaine Solution [Edema Assessment] -Lower Limb Edema Present No - Nurse 2 - General Ulcer CM Notes Start: 03/10/17 09:07 Freq: Status: Active Protocol: Activity Type Activity Date Activity User E-Sign Co-Sign Detail Recorded Client Recorded Date Recorded By Document 04/07/17 09:31 DV [id number] 04/07/17 09:42 DV 04/07/17 09:31 Wound Center Nurse 2 [Procedure/Treatment] 1. RLQ -Time 09:32 -Correct Patient Yes -Correct Side, Site, Position Yes -Correct Procedure Yes -Procedure Performed Yes -Type of Procedure Debridement -Clinical Debridement Subcutaneous -Post Debridement Size (cm) - Length 0.4 -Post Debridement Size (cm) - Width 1.0 -Post Debridement Size (cm) - Depth 2.3 -Total Square Cm 0.40 -Wound/Ulcer Outcome Not Healed -Ulcer Cleansing Rinsed/ Irrigated with Saline -Foul Odor after Cleansing No -Bioengineered Tissue No -Cetacaine [place] No -Bleeding Controlled with Pressure -Treatment Response Procedure Tolerated Well [See Physician Procedure note for Specifics] Pain Scale: 0-10 Numeric [Pain] -Is Patient Pain Free? Yes Musculoskeletal: No Muscle Wasting Neurological: Cranial nerves II-XII grossly intact Psych/Mental Status: Normal Affect Debridement Note Post-Debridement Measurements/Treatment WC - Nurse 2 - General Ulcer CM Notes Start: 03/10/17 09:07 Freq: Status: Active Protocol: Activity Type Activity Date Activity User E-Sign Co-Sign Detail Recorded Client Recorded Date Recorded By Document 03/10/17 09:58 DV [id number] 03/10/17 10:00 DV Document 03/17/17 11:51 DV [id number] 03/17/17 11:54 DV Document 03/24/17 12:22 DV [id number] 03/24/17 12:26 DV Document 03/31/17 09:06 DV [id number] 03/31/17 09:10 DV Document 04/07/17 09:31 DV [id number] 04/07/17 09:42 DV 03/10/17 03/17/17 03/24/17 09:58 11:51 12:22 Wound Center Nurse 2 1. RLQ -Time 09:58 11:52 12:23 -Correct Patient Yes Yes Yes -Correct Side, Site, Position Yes Yes Yes -Correct Procedure Yes Yes Yes -Procedure Performed Yes Yes Yes -Type of Procedure Debridement Debridement Debridement -Clinical Debridement Subcutaneous Subcutaneous Subcutaneous -Post Debridement Size (cm) - Length 0.7 0.5 0.5 -Post Debridement Size (cm) - Width 1.4 1.1 1.3 -Post Debridement Size (cm) - Depth 0.5 0.5 0.4 -Total Square Cm 0.98 0.55 0.65 -Wound/Ulcer Outcome Not Healed Not Healed Not Healed -Ulcer Cleansing Rinsed/ Rinsed/ Rinsed/ Irrigated with Irrigated with Irrigated with Saline Saline Saline -Foul Odor after Cleansing No No No -Bioengineered Tissue No No No -Cetacaine [place] No No No -Bleeding Controlled with Pressure Pressure Pressure -Treatment Response Procedure Procedure Procedure Tolerated Well Tolerated Well Tolerated Well Pain Scale: 0-10 Numeric Is Patient Pain Free? Yes Yes Yes 03/31/17 04/07/17 09:06 09:31 Wound Center Nurse 2 1. RLQ -Time 09:08 09:32 -Correct Patient Yes Yes -Correct Side, Site, Position Yes Yes -Correct Procedure Yes Yes -Procedure Performed Yes Yes -Type of Procedure Debridement Debridement -Clinical Debridement Subcutaneous Subcutaneous -Post Debridement Size (cm) - Length 0.4 0.4 -Post Debridement Size (cm) - Width 1.1 1.0 -Post Debridement Size (cm) - Depth 0.5 2.3 -Total Square Cm 0.44 0.40 -Wound/Ulcer Outcome Not Healed Not Healed -Ulcer Cleansing Rinsed/ Rinsed/ Irrigated with Irrigated with Saline Saline -Foul Odor after Cleansing No No -Bioengineered Tissue No No -Cetacaine [place] No No -Bleeding Controlled with Pressure Pressure -Treatment Response Procedure Procedure Tolerated Well Tolerated Well Pain Scale: 0-10 Numeric Is Patient Pain Free? Yes Yes Wound debrided: Right-sided abdominal wound Wound Grade/Stage: Stage II Type of Debridement: Excisional debridement Anesthesia Used: 4% Lidocaine Solution Depth: Down to and including healthy tissue, in the subcutaneous layer Percentage of wound debrided: 100 Instrument Used: 3mm curette Tissue Removed: Slough, devitalized subcutaneous tissue. Severity: Fat Layer Exposed Amount of bleeding with debridement: Mild Bleeding Controlled with: Pressure Patient tolerated procedure well Assessment/Plan Active Problems (Last Reviewed 04/06/17 @ 11:05 by Ema Henderson) Surgical wound dehiscence (Acute) DM2 (diabetes mellitus, type 2) (Chronic) Assessment: Abdominal wound dehiscence of a 10 year surgical scar. Diabetes mellitus type 2 poorly controlled. Ulcerative Colitis. Plan: No significant progress in wound. CAT scan of abdomen was ordered due to complaints of abdominal pain, scar tissue extension of previous abdominal wounds and possibility of an intra-abdominal process/fistula especially given the patient's history of ulcerative colitis/inflammatory bowel disease. A CAT scan with contrast would be ideal however due to patient's history of CKD 3 will go for a plain CAT scan. Also patient will benefit from a wound VAC due to tunneling and worsening depth despite traditional wound care measures. She states that her blood sugars are better controlled now. Cultures done at the last visit with very rare growth of staph epidermidis. Most likely contaminant. Advised to follow-up with her general surgeon Dr. [place]. Continue Aquacel to wound tunnel and depth with Promogran over top. Continue increased protein intake. Continue optimal blood sugar control. Follow up in 1 week. This note was generated with [employer] dictation software. It may contain incorrect words, spelling, and punctuation that were not noted in checking the note before signing.
--- NOTE | 2017-04-07 10:03 | PN.PCM_ITS ---
(1) Surgical wound dehiscence Status: Acute Current Visit: Yes Qualifiers: Encounter type: subsequent encounter Qualified Code(s): T81.31XD - Disruption of external operation (surgical) wound, not elsewhere classified, subsequent encounter Code(s): T81.31XA - Disruption of external operation (surgical) wound, not elsewhere classified, initial encounter (2) DM2 (diabetes mellitus, type 2) Status: Chronic Current Visit: Yes Qualifiers: Code(s): E11.9 - Type 2 diabetes mellitus without complications (3) Gastroparesis Status: Suspected Current Visit: No Code(s): K31.84 - Gastroparesis (4) Ulcerative colitis Status: Chronic Current Visit: No Code(s): K51.90 - Ulcerative colitis, unspecified, without complications Comment: Status post ileostomy Type of Wound Date of Service: 04/07/17 Chief Complaint: Right sided abdominal wound. History of Wound: Ms. Artis is a 56yo with an extensive past medical history who presented here on referral by her general surgeon. She was referred to general surgeon after she presented to her PCP with an opening of her 10 year surgical scar. This was said to be sudden in onset without any known precipitating factor. There has been no discharge from the site and no increased tenderness around the area either. She had been cleaning with hydrogen peroxide and dressing with gauze as recommended by her surgeon. She has a history of prior surgical wound dehiscence and these were as a result of undissolved sutures. She feels well otherwise. As stated earlier she denies any discharge from the wound site. She also denies chills, fever or otherwise feeling of unwell. Progress of Wound: Still no significant changes. Cultures done on the last visit with rare growth of staph epidermidis. - Physical Exam Vital Signs Temp Pulse Resp BP 95.7 F L 73 16 142/69 H 04/07/17 09:03 04/07/17 09:03 04/07/17 09:03 04/07/17 09:03 General: Alert, Oriented x3, Cooperative, No apparent distress HEENT: Atraumatic, Normocephalic Oral: Moist Mucosa Neck: Supple Lungs: Normal air movement Cardiovascular: Regular rate Abdomen: Soft Extremities: No cyanosis Wound Measurements and Assessment WC - Nurse 1 - General Ulcer Measurement Start: 03/10/17 09:07 Freq: Status: Active Protocol: Activity Type Activity Date Activity User E-Sign Co-Sign Detail Recorded Client Recorded Date Recorded By Document 04/07/17 09:03 MW [id number] 04/07/17 09:09 MW 04/07/17 09:03 Wound Center Nurse 1 [Ulcer Assessment Protocol: WC.WD.LOC] 1. RLQ -Combined with other wound No -Current Size (cm) - Length 0.3 -Current Size (cm) - Width 0.9 -Current Size (cm) - Depth 3.9 -Total Square Cm 0.27 -Photo Taken No -Epithelialization None Present -Tunneling No -Undermining/Tunneling No -Circular Undermining No -Exudate Amt Small (1-33%) -Exudate Type Serosanguineous -Wound Margin Indistinct, Non -Visible -Granulation Amt Small (1-33%) -Granulation Quality [place] -Slough/Fibrin Yes -Necrosis Amt Small (1-33%) -Necrotic Tissue Type Adherent Slough -Structure Exposed N/A -Texture (Fay-wound Skin Appearance) No Abnormality Assessed -Moisture (Fay-wound Skin Appearance No Abnormality ) Assessed -Color (Fay-wound Skin Appearance) No Abnormality Assessed -Temperature (Fay-wound Skin No Abnormality Appearance) (Pt Warm) -Tenderness on Palpation (Fay-wound Yes Skin Appearance) -Ulcer Cleansing Rinsed/ Irrigated with Saline -Foul Odor after Cleansing No -Anesthetic Used 4% Lidocaine Solution [Edema Assessment] -Lower Limb Edema Present No - Nurse 2 - General Ulcer CM Notes Start: 03/10/17 09:07 Freq: Status: Active Protocol: Activity Type Activity Date Activity User E-Sign Co-Sign Detail Recorded Client Recorded Date Recorded By Document 04/07/17 09:31 DV [id number] 04/07/17 09:42 DV 04/07/17 09:31 Wound Center Nurse 2 [Procedure/Treatment] 1. RLQ -Time 09:32 -Correct Patient Yes -Correct Side, Site, Position Yes -Correct Procedure Yes -Procedure Performed Yes -Type of Procedure Debridement -Clinical Debridement Subcutaneous -Post Debridement Size (cm) - Length 0.4 -Post Debridement Size (cm) - Width 1.0 -Post Debridement Size (cm) - Depth 2.3 -Total Square Cm 0.40 -Wound/Ulcer Outcome Not Healed -Ulcer Cleansing Rinsed/ Irrigated with Saline -Foul Odor after Cleansing No -Bioengineered Tissue No -Cetacaine [place] No -Bleeding Controlled with Pressure -Treatment Response Procedure Tolerated Well [See Physician Procedure note for Specifics] Pain Scale: 0-10 Numeric [Pain] -Is Patient Pain Free? Yes Musculoskeletal: No Muscle Wasting Neurological: Cranial nerves II-XII grossly intact Psych/Mental Status: Normal Affect Debridement Note Post-Debridement Measurements/Treatment WC - Nurse 2 - General Ulcer CM Notes Start: 03/10/17 09:07 Freq: Status: Active Protocol: Activity Type Activity Date Activity User E-Sign Co-Sign Detail Recorded Client Recorded Date Recorded By Document 03/10/17 09:58 DV [id number] 03/10/17 10:00 DV Document 03/17/17 11:51 DV [id number] 03/17/17 11:54 DV Document 03/24/17 12:22 DV [id number] 03/24/17 12:26 DV Document 03/31/17 09:06 DV [id number] 03/31/17 09:10 DV Document 04/07/17 09:31 DV [id number] 04/07/17 09:42 DV 03/10/17 03/17/17 03/24/17 09:58 11:51 12:22 Wound Center Nurse 2 1. RLQ -Time 09:58 11:52 12:23 -Correct Patient Yes Yes Yes -Correct Side, Site, Position Yes Yes Yes -Correct Procedure Yes Yes Yes -Procedure Performed Yes Yes Yes -Type of Procedure Debridement Debridement Debridement -Clinical Debridement Subcutaneous Subcutaneous Subcutaneous -Post Debridement Size (cm) - Length 0.7 0.5 0.5 -Post Debridement Size (cm) - Width 1.4 1.1 1.3 -Post Debridement Size (cm) - Depth 0.5 0.5 0.4 -Total Square Cm 0.98 0.55 0.65 -Wound/Ulcer Outcome Not Healed Not Healed Not Healed -Ulcer Cleansing Rinsed/ Rinsed/ Rinsed/ Irrigated with Irrigated with Irrigated with Saline Saline Saline -Foul Odor after Cleansing No No No -Bioengineered Tissue No No No -Cetacaine [place] No No No -Bleeding Controlled with Pressure Pressure Pressure -Treatment Response Procedure Procedure Procedure Tolerated Well Tolerated Well Tolerated Well Pain Scale: 0-10 Numeric Is Patient Pain Free? Yes Yes Yes 03/31/17 04/07/17 09:06 09:31 Wound Center Nurse 2 1. RLQ -Time 09:08 09:32 -Correct Patient Yes Yes -Correct Side, Site, Position Yes Yes -Correct Procedure Yes Yes -Procedure Performed Yes Yes -Type of Procedure Debridement Debridement -Clinical Debridement Subcutaneous Subcutaneous -Post Debridement Size (cm) - Length 0.4 0.4 -Post Debridement Size (cm) - Width 1.1 1.0 -Post Debridement Size (cm) - Depth 0.5 2.3 -Total Square Cm 0.44 0.40 -Wound/Ulcer Outcome Not Healed Not Healed -Ulcer Cleansing Rinsed/ Rinsed/ Irrigated with Irrigated with Saline Saline -Foul Odor after Cleansing No No -Bioengineered Tissue No No -Cetacaine [place] No No -Bleeding Controlled with Pressure Pressure -Treatment Response Procedure Procedure Tolerated Well Tolerated Well Pain Scale: 0-10 Numeric Is Patient Pain Free? Yes Yes Wound debrided: Right-sided abdominal wound Wound Grade/Stage: Stage II Type of Debridement: Excisional debridement Anesthesia Used: 4% Lidocaine Solution Depth: Down to and including healthy tissue, in the subcutaneous layer Percentage of wound debrided: 100 Instrument Used: 3mm curette Tissue Removed: Slough, devitalized subcutaneous tissue. Severity: Fat Layer Exposed Amount of bleeding with debridement: Mild Bleeding Controlled with: Pressure Patient tolerated procedure well Assessment/Plan Active Problems (Last Reviewed 04/06/17 @ 11:05 by Ema Henderson) Surgical wound dehiscence (Acute) DM2 (diabetes mellitus, type 2) (Chronic) Assessment: Abdominal wound dehiscence of a 10 year surgical scar. Diabetes mellitus type 2 poorly controlled. Ulcerative Colitis. Plan: No significant progress in wound. CAT scan of abdomen was ordered due to complaints of abdominal pain, scar tissue extension of previous abdominal wounds and possibility of an intra-abdominal process/fistula especially given the patient's history of ulcerative colitis/inflammatory bowel disease. A CAT scan with contrast would be ideal however due to patient's history of CKD 3 will go for a plain CAT scan. Also patient will benefit from a wound VAC due to tunneling and worsening depth despite traditional wound care measures. She states that her blood sugars are better controlled now. Cultures done at the last visit with very rare growth of staph epidermidis. Most likely contaminant. Advised to follow-up with her general surgeon Dr. Chester. Continue Aquacel to wound tunnel and depth with Promogran over top. Continue increased protein intake. Continue optimal blood sugar control. Follow up in 1 week. This note was generated with [employer] dictation software. It may contain incorrect words, spelling, and punctuation that were not noted in checking the note before signing.
== END 2017-04-07 23:59 ==
LOC: WC 09:00
PROVIDERS: Family Provider Internal Medicine; PCP Internal Medicine; Visit Provider Internal Medicine
DX: T81.30XA Disruption of wound, unspecified, initial encounter (principal); E11.65 Type 2 diabetes mellitus with hyperglycemia; Z93.2 Ileostomy status; E11.22 Type 2 diabetes mellitus with diabetic chronic kidney disease; N18.3 Chronic kidney disease, stage 3 (moderate)
CPT/HCPCS: 11042; 87070; 87075; 87077; 87186; 87205

== ENCOUNTER → 2017-04-19 14:58 | Outpatient (CLI) | payer MEDICAID, SELFPAY ==
[2017-04-14 09:10] VITALS: BP 135/80
[2017-04-16 10:13] VITALS: BMI 31.0
--- NOTE | 2017-04-19 14:59 | CT_ITS ---
STUDY: CT ABDOMEN AND PELVIS WITHOUT CONTRAST REASON FOR EXAM: Female, 56 years old. Open wound right lower abdomen RADIATION DOSAGE (If Supplied By Facility): CTDIvol = ( 14.30 ) mGy, DLP = ( 737.38 ) mGycm TECHNIQUE: Transaxial images were obtained from the lower chest to the upper thighs without oral contrast, and without intravenous contrast. Sagittal and coronal images were reconstructed. Individualized dose optimization techniques were used for this CT. COMPARISON: July 12, 2016 FINDINGS: There is stable minimal scarring in the posterior segment of the right lower lobe. There is no pleural effusion. The heart is normal in size. The liver is unremarkable. There is non-visualization of the gallbladder, which may be secondary to either contraction or a prior cholecystectomy. The spleen is unremarkable. The pancreas is unremarkable. The adrenal glands are unremarkable. The right kidney is unremarkable. There is no dilatation of the collecting system in the right kidney. The left kidney is unremarkable. There is no dilatation of the collecting system in the left kidney. The stomach is unremarkable. There is an ileostomy again seen in the left lower quadrant. The colon is surgically absent. There are moderate scattered vascular calcifications. The IVC is unremarkable. The retroperitoneum is unremarkable. There is no free fluid in the abdomen. The urinary bladder is unremarkable. There is absence of the uterus consistent with a prior hysterectomy. There are no abnormal masses in the adnexal regions. There is a tract of minimal fluid and air in the right lower quadrant. There are mild degenerative changes in the visualized spine. There are moderate degenerative disc changes at L5-S1. Sternotomy wires are present. CT/Abdomen/Pelvis without Cont IMPRESSION: There is a tract of minimal fluid and air in the right lower quadrant in the location of the prior ostomy scar. There may be communication with bowel, however no oral contrast was given. This will be assessed during fistulogram on April 21. An ileostomy is again seen in the left lower quadrant. There are no acute bowel abnormalities. There is no ascites, free air or significant lymphadenopathy. Electronically Signed: Tiffany Lopez MD at 20:03 EST Tel Direct: [phone], Service support ,
== END ==
PROVIDERS: Family Provider Internal Medicine; PCP Internal Medicine; Visit Provider Internal Medicine
DX: T81.30XA Disruption of wound, unspecified, initial encounter (principal)
CPT/HCPCS: 74176

== ENCOUNTER 2017-04-20 10:36 | Outpatient (RCR) | payer MEDICAID, SELFPAY ==
[2017-04-06 11:08] VITALS: BMI 31.0
[2017-04-07 09:03] VITALS: BP 142/69
== END 2017-04-20 10:37 ==
LOC: DC 10:36
PROVIDERS: Family Provider Internal Medicine; PCP Internal Medicine; Visit Provider Nurse Practitioner Family
DX: E11.22 Type 2 diabetes mellitus with diabetic chronic kidney disease (principal); Z68.31 Body mass index [BMI] 31.0-31.9, adult; Z71.3 Dietary counseling and surveillance
CPT/HCPCS: 97803

== ENCOUNTER → 2017-04-21 09:04 | Outpatient (CLI) | payer MEDICAID, SELFPAY ==
--- NOTE | 2017-04-21 09:14 | RAD_ITS ---
PROCEDURE: Fistulogram. DATE OF EXAMINATION: April 21, 2017. INDICATION: Female, 56 years old. Fistula in the right lower quadrant. 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 PROCEDURE/TECHNIQUE: (All elements of maximal sterile barrier technique followed, including US elements as applicable) Approximately 10 cc of Isovue-300 was injected into the opening. This most likely is a tract in the subcutaneous tissue opening in the right lower quadrant. A linear collection of contrast is seen measuring 1.4 cm in longitudinal dimension by 0.2 cm in transverse dimension. This most likely is within the subcutaneous tissues. RAD/Fluoroscopy 1 Hr or Less IMPRESSION: Contrast is seen in a linear pattern in the right lower quadrant at the site of the Electronically Signed: Eric Spencer MD at 15:05 EST Tel [phone], Service support ,
== END ==
PROVIDERS: Family Provider Internal Medicine; PCP Internal Medicine; Visit Provider Surgery
DX: K63.2 Fistula of intestine (principal)
CPT/HCPCS: 76000; Q9967

== ENCOUNTER 2017-05-05 11:30 | Outpatient (RCR) | payer MEDICAID, SELFPAY ==
[2017-04-06 11:08] VITALS: BMI 31.0
[2017-04-07 09:03] VITALS: BP 142/69
[2017-04-08 00:58] VITALS: PULSE 73; RESP 16; TEMP 35.4
[2017-04-14 09:10] VITALS: BP 135/80; PULSE 80; RESP 18; TEMP 36.1; BMI 31.0
--- NOTE | 2017-04-14 14:11 | PN.PCM_ITS ---
(1) Surgical wound dehiscence Status: Acute Current Visit: No Qualifiers: Code(s): T81.31XA - Disruption of external operation (surgical) wound, not elsewhere classified, initial encounter (2) DM2 (diabetes mellitus, type 2) Status: Chronic Current Visit: No Qualifiers: Code(s): E11.9 - Type 2 diabetes mellitus without complications Comment: Pt has seen marked improvement in BG over the last week. She is following dietary plan provided by [facility] (why weight program). She is consuming 6 small meals daily but is not sure what to do with her insulin. BG not always elevated at her meal times. I have ask her to check before each of her small meals to see if she is having any spike. I have ask her to reduce her insulin doses by 50% for meals as she is consuming about 50% less at standard meal times and taking additional food between. BG readings significantly improved and she is doing well following the plan. Had only one day when she did not out of the last 7 days. She admits she is feeling better as far as GI system is concerned. (3) Ulcerative colitis Status: Chronic Current Visit: No Code(s): K51.90 - Ulcerative colitis, unspecified, without complications Comment: Status post ileostomy Type of Wound Date of Service: 04/14/17 Chief Complaint: Right sided abdominal wound. History of Wound: Ms. Artis is a 56yo with an extensive past medical history who presented here on referral by her general surgeon. She was referred to general surgeon after she presented to her PCP with an opening of her 10 year surgical scar. This was said to be sudden in onset without any known precipitating factor. There has been no discharge from the site and no increased tenderness around the area either. She had been cleaning with hydrogen peroxide and dressing with gauze as recommended by her surgeon. She has a history of prior surgical wound dehiscence and these were as a result of undissolved sutures. She feels well otherwise. As stated earlier she denies any discharge from the wound site. She also denies chills, fever or otherwise feeling of unwell. Progress of Wound: Stable. No significant changes. - Physical Exam Vital Signs Temp Pulse Resp BP 97 F L 80 18 135/80 H 04/14/17 09:10 04/14/17 09:10 04/14/17 09:10 04/14/17 09:10 General: Alert, Oriented x3, Cooperative, No apparent distress HEENT: Atraumatic, Normocephalic Oral: Moist Mucosa Neck: Supple Lungs: Normal air movement Cardiovascular: Regular rate Abdomen: Soft Extremities: No cyanosis Skin: Ulcer/ Wound - Abdominal Wound Measurements and Assessment WC - Nurse 1 - General Ulcer Measurement Start: 04/14/17 09:08 Freq: Status: Active Protocol: Activity Type Activity Date Activity User E-Sign Co-Sign Detail Recorded Client Recorded Date Recorded By Document 04/14/17 09:10 RB [id number] 04/14/17 09:14 RB 04/14/17 09:10 Wound Center Nurse 1 [Ulcer Assessment Protocol: .WD.LOC] 1. RLQ -Combined with other wound No -Current Size (cm) - Length 0.3 -Current Size (cm) - Width 0.7 -Current Size (cm) - Depth 4 -Total Square Cm 0.21 -Photo Taken No -Epithelialization Small 1-33% -Tunneling No -Undermining/Tunneling No -Circular Undermining No -Classification - Thickness Full Thickness without Exposed Support Structure -Exudate Amt Small (1-33%) -Exudate Type Serosanguineous -Wound Margin Distinct, Outline Attached -Granulation Amt Medium (34-66%) -Granulation Quality [place] -Slough/Fibrin Yes -Necrosis Amt Small (1-33%) -Necrotic Tissue Type Adherent Slough -Structure Exposed N/A -Texture (Fay-wound Skin Appearance) Assessed -Moisture (Fay-wound Skin Appearance Assessed ) -Color (Fay-wound Skin Appearance) Assessed -Temperature (Fay-wound Skin No Abnormality Appearance) (Pt Warm) -Tenderness on Palpation (Fay-wound No Skin Appearance) -Ulcer Cleansing Rinsed/ Irrigated with Saline -Foul Odor after Cleansing No -Anesthetic Used 4% Lidocaine Solution WC - Nurse 2 - General Ulcer CM Notes Start: 04/14/17 09:08 Freq: Status: Active Protocol: Activity Type Activity Date Activity User E-Sign Co-Sign Detail Recorded Client Recorded Date Recorded By Document 04/14/17 10:26 DV [id number] 04/14/17 10:43 DV 04/14/17 10:26 Wound Center Nurse 2 [Procedure/Treatment] -Time 10:27 -Correct Patient Yes -Correct Side, Site, Position Yes -Correct Procedure Yes -Procedure Performed Yes -Type of Procedure Debridement -Clinical Debridement Subcutaneous -Post Debridement Size (cm) - Length 0.2 -Post Debridement Size (cm) - Width 0.9 -Post Debridement Size (cm) - Depth 4.0 -Total Square Cm 0.18 -Wound/Ulcer Outcome Not Healed -Ulcer Cleansing Rinsed/ Irrigated with Saline -Foul Odor after Cleansing No -Bioengineered Tissue No -Bleeding Controlled with Pressure -Treatment Response Procedure Tolerated Well [See Physician Procedure note for Specifics] Pain Scale: 0-10 Numeric [Pain] -Is Patient Pain Free? Yes Musculoskeletal: No Muscle Wasting Neurological: Cranial nerves II-XII grossly intact Psych/Mental Status: Normal Affect Debridement Note Post-Debridement Measurements/Treatment WC - Nurse 2 - General Ulcer CM Notes Start: 04/14/17 09:08 Freq: Status: Active Protocol: Activity Type Activity Date Activity User E-Sign Co-Sign Detail Recorded Client Recorded Date Recorded By Document 04/14/17 10:26 DV [id number] 04/14/17 10:43 DV 04/14/17 10:26 Wound Center Nurse 2 1. RLQ -Time 10:27 -Correct Patient Yes -Correct Side, Site, Position Yes -Correct Procedure Yes -Procedure Performed Yes -Type of Procedure Debridement -Clinical Debridement Subcutaneous -Post Debridement Size (cm) - Length 0.2 -Post Debridement Size (cm) - Width 0.9 -Post Debridement Size (cm) - Depth 4.0 -Total Square Cm 0.18 -Wound/Ulcer Outcome Not Healed -Ulcer Cleansing Rinsed/ Irrigated with Saline -Foul Odor after Cleansing No -Bioengineered Tissue No -Bleeding Controlled with Pressure -Treatment Response Procedure Tolerated Well Pain Scale: 0-10 Numeric Is Patient Pain Free? Yes Wound debrided: Right sided abdominal wound. Wound Grade/Stage: Stage II Type of Debridement: Excisional debridement Anesthesia Used: 4% Lidocaine Solution Depth: Down to and including healthy tissue, in the subcutaneous layer Percentage of wound debrided: 100 Instrument Used: 3mm curette Tissue Removed: Small and devitalized tissue. Severity: Fat Layer Exposed Amount of bleeding with debridement: Mild Bleeding Controlled with: Pressure Patient tolerated procedure well Assessment/Plan Assessment: Abdominal wound dehiscence of a 10 year surgical scar. Diabetes mellitus type 2 poorly controlled. Ulcerative Colitis. Plan: Modest wound healing progression. Tunneling now converted to full depth of wound. Patient described bleeding in the past week however she has serosanguineous drainage noted today. She is yet to get the CAT scan due to insurance delay. Wound VAC also in the process of being approved. [facility] reportedly waiting for CT scan which is yet to be approved. Scheduled to follow up with Gen Surgery on 04/16. Continue Aquacel daily/every other day. Continue increased protein intake. Continue optimal blood sugar control. Follow up in 1 week. This note was generated with [employer] dictation software. It may contain incorrect words, spelling, and punctuation that were not noted in checking the note before signing.
[2017-04-21 08:08] VITALS: BP 132/78; PULSE 78; RESP 18; TEMP 35.7; BMI 31.0
--- NOTE | 2017-04-21 09:41 | PCM.WC.PN ---
(1) Surgical wound dehiscence Status: Acute Current Visit: Yes Qualifiers: Code(s): T81.31XA - Disruption of external operation (surgical) wound, not elsewhere classified, initial encounter (2) DM2 (diabetes mellitus, type 2) Status: Chronic Current Visit: Yes Qualifiers: Code(s): E11.9 - Type 2 diabetes mellitus without complications (3) Ulcerative colitis Status: Chronic Current Visit: No Code(s): K51.90 - Ulcerative colitis, unspecified, without complications Comment: Status post ileostomy Type of Wound Date of Service: 04/21/17 Chief Complaint: Right sided abdominal wound. History of Wound: Ms. Artis is a 56yo with an extensive past medical history who presented here on referral by her general surgeon. She was referred to general surgeon after she presented to her PCP with an opening of her 10 year surgical scar. This was said to be sudden in onset without any known precipitating factor. There has been no discharge from the site and no increased tenderness around the area either. She had been cleaning with hydrogen peroxide and dressing with gauze as recommended by her surgeon. She has a history of prior surgical wound dehiscence and these were as a result of undissolved sutures. She feels well otherwise. As stated earlier she denies any discharge from the wound site. She also denies chills, fever or otherwise feeling of unwell. Progress of Wound: She reports increased yellowish discharge from the wound site. She did follow-up with her general surgeon as recommended and plan is to get a fistulogram due to concerns for an enterocutaneous fistula. She also had a CAT scan done which showed a possible tract. She however denies chills, fever or foul-smelling discharge from the site. - Physical Exam Vital Signs Temp Pulse Resp BP 96.2 F L 78 18 132/78 H 04/21/17 08:08 04/21/17 08:08 04/21/17 08:08 04/21/17 08:08 General: Alert, Oriented x3, Cooperative, No apparent distress HEENT: Atraumatic, Normocephalic Oral: Moist Mucosa Neck: Supple Lungs: Normal air movement Cardiovascular: Regular rate Abdomen: Soft, Obese Extremities: No cyanosis Skin: Ulcer/ Wound - Abdominal. Wound Measurements and Assessment WC - Nurse 1 - General Ulcer Measurement Start: 04/14/17 09:08 Freq: Status: Active Protocol: Activity Type Activity Date Activity User E-Sign Co-Sign Detail Recorded Client Recorded Date Recorded By Document 04/21/17 08:08 MW [id number] 04/21/17 08:18 MW 04/21/17 08:08 Wound Center Nurse 1 [Ulcer Assessment Protocol: WC.WD.LOC] 1. RLQ -Combined with other wound No -Current Size (cm) - Length 0.2 -Current Size (cm) - Width 0.6 -Current Size (cm) - Depth 4.6 -Total Square Cm 0.12 -Photo Taken No -Epithelialization None Present -Tunneling No -Undermining/Tunneling No -Circular Undermining No -Exudate Amt Small (1-33%) -Exudate Type Sanguineous -Wound Margin Indistinct, Non -Visible -Granulation Amt None Present (0 %) -Granulation Quality N/A -Slough/Fibrin Yes -Necrosis Amt Small (1-33%) -Necrotic Tissue Type Adherent Slough -Structure Exposed N/A -Texture (Fay-wound Skin Appearance) No Abnormality Assessed -Moisture (Fay-wound Skin Appearance No Abnormality ) Assessed -Color (Fay-wound Skin Appearance) No Abnormality Assessed -Temperature (Fay-wound Skin No Abnormality Appearance) (Pt Warm) -Tenderness on Palpation (Fay-wound No Skin Appearance) -Ulcer Cleansing Rinsed/ Irrigated with Saline -Foul Odor after Cleansing No -Anesthetic Used 4% Lidocaine Solution [Edema Assessment] -Lower Limb Edema Present No - Nurse 2 - General Ulcer CM Notes Start: 04/14/17 09:08 Freq: Status: Active Protocol: Activity Type Activity Date Activity User E-Sign Co-Sign Detail Recorded Client Recorded Date Recorded By Document 04/21/17 08:39 DV [id number] 04/21/17 08:47 DV 04/21/17 08:39 Wound Center Nurse 2 [Procedure/Treatment] 1. RLQ -Time 08:42 -Correct Patient Yes -Correct Side, Site, Position Yes -Correct Procedure Yes -Procedure Performed Yes -Type of Procedure Debridement -Clinical Debridement Subcutaneous -Post Debridement Size (cm) - Length 0.2 -Post Debridement Size (cm) - Width 0.6 -Post Debridement Size (cm) - Depth 4.5 -Total Square Cm 0.12 -Wound/Ulcer Outcome Not Healed -Ulcer Cleansing Rinsed/ Irrigated with Saline -Foul Odor after Cleansing No -Bioengineered Tissue No -Bleeding Controlled with Pressure -Treatment Response Procedure Tolerated Well [See Physician Procedure note for Specifics] Pain Scale: 0-10 Numeric [Pain] -Is Patient Pain Free? Yes Musculoskeletal: No Muscle Wasting Neurological: Cranial nerves II-XII grossly intact Psych/Mental Status: Normal Affect Debridement Note Post-Debridement Measurements/Treatment WC - Nurse 2 - General Ulcer CM Notes Start: 04/14/17 09:08 Freq: Status: Active Protocol: Activity Type Activity Date Activity User E-Sign Co-Sign Detail Recorded Client Recorded Date Recorded By Document 04/14/17 10:26 DV [id number] 04/14/17 10:43 DV Document 04/21/17 08:39 DV [id number] 04/21/17 08:47 DV 04/14/17 04/21/17 10:26 08:39 Wound Center Nurse 2 1. RLQ -Time 10:27 08:42 -Correct Patient Yes Yes -Correct Side, Site, Position Yes Yes -Correct Procedure Yes Yes -Procedure Performed Yes Yes -Type of Procedure Debridement Debridement -Clinical Debridement Subcutaneous Subcutaneous -Post Debridement Size (cm) - Length 0.2 0.2 -Post Debridement Size (cm) - Width 0.9 0.6 -Post Debridement Size (cm) - Depth 4.0 4.5 -Total Square Cm 0.18 0.12 -Wound/Ulcer Outcome Not Healed Not Healed -Ulcer Cleansing Rinsed/ Rinsed/ Irrigated with Irrigated with Saline Saline -Foul Odor after Cleansing No No -Bioengineered Tissue No No -Bleeding Controlled with Pressure Pressure -Treatment Response Procedure Procedure Tolerated Well Tolerated Well Pain Scale: 0-10 Numeric Is Patient Pain Free? Yes Yes Wound debrided: Right sided abdominal wound. Wound Grade/Stage: Stage II. Type of Debridement: Excisional debridement Anesthesia Used: 4% Lidocaine Solution Depth: Down to and including healthy tissue, in the subcutaneous layer Percentage of wound debrided: 100 Instrument Used: 3mm curette Tissue Removed: Devitalized subcutaneous tissue, slough Severity: Fat Layer Exposed Amount of bleeding with debridement: Mild Bleeding Controlled with: Pressure Patient tolerated procedure well Assessment/Plan Active Problems (Last Reviewed 04/16/17 @ 10:12 by Thai Noble MD) Surgical wound dehiscence (Acute) DM2 (diabetes mellitus, type 2) (Chronic) Assessment: Abdominal wound dehiscence of a 10 year surgical scar. Diabetes mellitus type 2 poorly controlled. Ulcerative Colitis. Plan: Depth of wound continues to increase. Increased to 4.5cm from 4cm last week. Circumference of wound however reducing. She notes increased discharge over the past week however, none foul-smelling. She also denies chills or fever. She did follow-up with her general surgeon as recommended and plan is for a fistulogram. Considerations are for possible enterocutaneous fistula or a chronic suture granuloma vs Sinus Tract. If fistulogram is suggestive of an enterocutaneous fistula, plan is to refer to the [facility] for further management. Wound debridement done as detailed above. Procedure was well-tolerated. Due to increased discharge, will switch dressing over to Aquacel silver. Continue daily dressing. Continue increase protein intake/supplements. Continue optimal blood sugar control. Follow-up in 1 week. This note was generated with [employer] dictation software. It may contain incorrect words, spelling, and punctuation that were not noted in checking the note before signing.
--- NOTE | 2017-04-21 09:52 | PN.PCM_ITS ---
(1) Surgical wound dehiscence Status: Acute Current Visit: Yes Qualifiers: Code(s): T81.31XA - Disruption of external operation (surgical) wound, not elsewhere classified, initial encounter (2) DM2 (diabetes mellitus, type 2) Status: Chronic Current Visit: Yes Qualifiers: Code(s): E11.9 - Type 2 diabetes mellitus without complications (3) Ulcerative colitis Status: Chronic Current Visit: No Code(s): K51.90 - Ulcerative colitis, unspecified, without complications Comment: Status post ileostomy Type of Wound Date of Service: 04/21/17 Chief Complaint: Right sided abdominal wound. History of Wound: Ms. Artis is a 56yo with an extensive past medical history who presented here on referral by her general surgeon. She was referred to general surgeon after she presented to her PCP with an opening of her 10 year surgical scar. This was said to be sudden in onset without any known precipitating factor. There has been no discharge from the site and no increased tenderness around the area either. She had been cleaning with hydrogen peroxide and dressing with gauze as recommended by her surgeon. She has a history of prior surgical wound dehiscence and these were as a result of undissolved sutures. She feels well otherwise. As stated earlier she denies any discharge from the wound site. She also denies chills, fever or otherwise feeling of unwell. Progress of Wound: She reports increased yellowish discharge from the wound site. She did follow-up with her general surgeon as recommended and plan is to get a fistulogram due to concerns for an enterocutaneous fistula. She also had a CAT scan done which showed a possible tract. She however denies chills, fever or foul-smelling discharge from the site. - Physical Exam Vital Signs Temp Pulse Resp BP 96.2 F L 78 18 132/78 H 04/21/17 08:08 04/21/17 08:08 04/21/17 08:08 04/21/17 08:08 General: Alert, Oriented x3, Cooperative, No apparent distress HEENT: Atraumatic, Normocephalic Oral: Moist Mucosa Neck: Supple Lungs: Normal air movement Cardiovascular: Regular rate Abdomen: Soft, Obese Extremities: No cyanosis Skin: Ulcer/ Wound - Abdominal. Wound Measurements and Assessment WC - Nurse 1 - General Ulcer Measurement Start: 04/14/17 09:08 Freq: Status: Active Protocol: Activity Type Activity Date Activity User E-Sign Co-Sign Detail Recorded Client Recorded Date Recorded By Document 04/21/17 08:08 MW [id number] 04/21/17 08:18 MW 04/21/17 08:08 Wound Center Nurse 1 [Ulcer Assessment Protocol: WC.WD.LOC] 1. RLQ -Combined with other wound No -Current Size (cm) - Length 0.2 -Current Size (cm) - Width 0.6 -Current Size (cm) - Depth 4.6 -Total Square Cm 0.12 -Photo Taken No -Epithelialization None Present -Tunneling No -Undermining/Tunneling No -Circular Undermining No -Exudate Amt Small (1-33%) -Exudate Type Sanguineous -Wound Margin Indistinct, Non -Visible -Granulation Amt None Present (0 %) -Granulation Quality N/A -Slough/Fibrin Yes -Necrosis Amt Small (1-33%) -Necrotic Tissue Type Adherent Slough -Structure Exposed N/A -Texture (Fay-wound Skin Appearance) No Abnormality Assessed -Moisture (Fay-wound Skin Appearance No Abnormality ) Assessed -Color (Fay-wound Skin Appearance) No Abnormality Assessed -Temperature (Fay-wound Skin No Abnormality Appearance) (Pt Warm) -Tenderness on Palpation (Fay-wound No Skin Appearance) -Ulcer Cleansing Rinsed/ Irrigated with Saline -Foul Odor after Cleansing No -Anesthetic Used 4% Lidocaine Solution [Edema Assessment] -Lower Limb Edema Present No - Nurse 2 - General Ulcer CM Notes Start: 04/14/17 09:08 Freq: Status: Active Protocol: Activity Type Activity Date Activity User E-Sign Co-Sign Detail Recorded Client Recorded Date Recorded By Document 04/21/17 08:39 DV [id number] 04/21/17 08:47 DV 04/21/17 08:39 Wound Center Nurse 2 [Procedure/Treatment] 1. RLQ -Time 08:42 -Correct Patient Yes -Correct Side, Site, Position Yes -Correct Procedure Yes -Procedure Performed Yes -Type of Procedure Debridement -Clinical Debridement Subcutaneous -Post Debridement Size (cm) - Length 0.2 -Post Debridement Size (cm) - Width 0.6 -Post Debridement Size (cm) - Depth 4.5 -Total Square Cm 0.12 -Wound/Ulcer Outcome Not Healed -Ulcer Cleansing Rinsed/ Irrigated with Saline -Foul Odor after Cleansing No -Bioengineered Tissue No -Bleeding Controlled with Pressure -Treatment Response Procedure Tolerated Well [See Physician Procedure note for Specifics] Pain Scale: 0-10 Numeric [Pain] -Is Patient Pain Free? Yes Musculoskeletal: No Muscle Wasting Neurological: Cranial nerves II-XII grossly intact Psych/Mental Status: Normal Affect Debridement Note Post-Debridement Measurements/Treatment WC - Nurse 2 - General Ulcer CM Notes Start: 04/14/17 09:08 Freq: Status: Active Protocol: Activity Type Activity Date Activity User E-Sign Co-Sign Detail Recorded Client Recorded Date Recorded By Document 04/14/17 10:26 DV [id number] 04/14/17 10:43 DV Document 04/21/17 08:39 DV [id number] 04/21/17 08:47 DV 04/14/17 04/21/17 10:26 08:39 Wound Center Nurse 2 1. RLQ -Time 10:27 08:42 -Correct Patient Yes Yes -Correct Side, Site, Position Yes Yes -Correct Procedure Yes Yes -Procedure Performed Yes Yes -Type of Procedure Debridement Debridement -Clinical Debridement Subcutaneous Subcutaneous -Post Debridement Size (cm) - Length 0.2 0.2 -Post Debridement Size (cm) - Width 0.9 0.6 -Post Debridement Size (cm) - Depth 4.0 4.5 -Total Square Cm 0.18 0.12 -Wound/Ulcer Outcome Not Healed Not Healed -Ulcer Cleansing Rinsed/ Rinsed/ Irrigated with Irrigated with Saline Saline -Foul Odor after Cleansing No No -Bioengineered Tissue No No -Bleeding Controlled with Pressure Pressure -Treatment Response Procedure Procedure Tolerated Well Tolerated Well Pain Scale: 0-10 Numeric Is Patient Pain Free? Yes Yes Wound debrided: Right sided abdominal wound. Wound Grade/Stage: Stage II. Type of Debridement: Excisional debridement Anesthesia Used: 4% Lidocaine Solution Depth: Down to and including healthy tissue, in the subcutaneous layer Percentage of wound debrided: 100 Instrument Used: 3mm curette Tissue Removed: Devitalized subcutaneous tissue, slough Severity: Fat Layer Exposed Amount of bleeding with debridement: Mild Bleeding Controlled with: Pressure Patient tolerated procedure well Assessment/Plan Active Problems (Last Reviewed 04/16/17 @ 10:12 by Thai Noble MD) Surgical wound dehiscence (Acute) DM2 (diabetes mellitus, type 2) (Chronic) Assessment: Abdominal wound dehiscence of a 10 year surgical scar. Diabetes mellitus type 2 poorly controlled. Ulcerative Colitis. Plan: Depth of wound continues to increase. Increased to 4.5cm from 4cm last week. Circumference of wound however reducing. She notes increased discharge over the past week however, none foul-smelling. She also denies chills or fever. She did follow-up with her general surgeon as recommended and plan is for a fistulogram. Considerations are for possible enterocutaneous fistula or a chronic suture granuloma vs Sinus Tract. If fistulogram is suggestive of an enterocutaneous fistula, plan is to refer to the [facility] for further management. Wound debridement done as detailed above. Procedure was well- tolerated. Due to increased discharge, will switch dressing over to Aquacel silver. Continue daily dressing. Continue increase protein intake/ supplements. Continue optimal blood sugar control. Follow-up in 1 week. This note was generated with [employer] dictation software. It may contain incorrect words, spelling, and punctuation that were not noted in checking the note before signing.
[2017-04-28 08:53] VITALS: BP 124/70; PULSE 78; RESP 18; TEMP 36.1; BMI 31.0
--- NOTE | 2017-04-28 11:02 | PCM.WC.PN ---
(1) Surgical wound dehiscence Status: Acute Qualifiers: Code(s): T81.31XA - Disruption of external operation (surgical) wound, not elsewhere classified, initial encounter (2) DM2 (diabetes mellitus, type 2) Status: Chronic Qualifiers: Code(s): E11.9 - Type 2 diabetes mellitus without complications (3) Ulcerative colitis Status: Chronic Code(s): K51.90 - Ulcerative colitis, unspecified, without complications Comment: Status post ileostomy Type of Wound Date of Service: 04/28/17 Chief Complaint: Right sided abdominal wound. History of Wound: Ms. Artis is a 56yo with an extensive past medical history who presented here on referral by her general surgeon. She was referred to general surgeon after she presented to her PCP with an opening of her 10 year surgical scar. This was said to be sudden in onset without any known precipitating factor. There has been no discharge from the site and no increased tenderness around the area either. She had been cleaning with hydrogen peroxide and dressing with gauze as recommended by her surgeon. She has a history of prior surgical wound dehiscence and these were as a result of undissolved sutures. She feels well otherwise. As stated earlier she denies any discharge from the wound site. She also denies chills, fever or otherwise feeling of unwell. Progress of Wound: No significant changes in the past week. She continues to have intermittent 'Stabbing pain' in the wound. No increased drainage. No fever or chills. She however states that she noted ? bloody discharge from her navel area a few days ago. This however stopped spontaneously. She also continues to have pain intermittently especially along previous scars. She followed up with the [facility] surgeon to whom she was referred by Dr. Noble. Care/ Investigation is ongoing. - Physical Exam Vital Signs Temp Pulse Resp BP 97 F L 78 18 124/70 H 04/28/17 08:53 04/28/17 08:53 04/28/17 08:53 04/28/17 08:53 General: Alert, Oriented x3, Cooperative, No apparent distress HEENT: Atraumatic, Normocephalic Oral: Moist Mucosa Neck: Supple Cardiovascular: Regular rate Abdomen: Soft, - - Right sided ulcer. Extremities: No cyanosis Wound Measurements and Assessment WC - Nurse 1 - General Ulcer Measurement Start: 04/14/17 09:08 Freq: Status: Active Protocol: Activity Type Activity Date Activity User E-Sign Co-Sign Detail Recorded Client Recorded Date Recorded By Document 04/28/17 08:53 RB [id number] 04/28/17 09:04 RB 04/28/17 08:53 Wound Center Nurse 1 [Ulcer Assessment] 1. RLQ -Combined with other wound No -Current Size (cm) - Length 0.1 -Current Size (cm) - Width 0.5 -Current Size (cm) - Depth 4.2 -Total Square Cm 0.05 -Photo Taken Yes -Tunneling No -Undermining/Tunneling No -Circular Undermining No -Classification - Thickness Full Thickness without Exposed Support Structure -Exudate Amt Medium (34-66%) -Exudate Type Serosanguineous -Wound Margin Distinct, Outline Attached -Granulation Amt Medium (34-66%) -Granulation Quality [place] -Slough/Fibrin Yes -Necrosis Amt Small (1-33%) -Necrotic Tissue Type Adherent Slough -Structure Exposed N/A -Texture (Fay-wound Skin Appearance) Assessed -Moisture (Fay-wound Skin Appearance Assessed ) -Color (Fay-wound Skin Appearance) Assessed [place]ry[place] -Temperature (Fay-wound Skin No Abnormality Appearance) (Pt Warm) -Tenderness on Palpation (Fay-wound No Skin Appearance) -Ulcer Cleansing Rinsed/ Irrigated with Saline -Foul Odor after Cleansing No -Anesthetic Used 4% Lidocaine Solution WC - Nurse 2 - General Ulcer CM Notes Start: 04/14/17 09:08 Freq: Status: Active Protocol: Activity Type Activity Date Activity User E-Sign Co-Sign Detail Recorded Client Recorded Date Recorded By Document 04/28/17 09:30 DV [id number] 04/28/17 09:32 DV 04/28/17 09:30 Wound Center Nurse 2 [Procedure/Treatment] -Time 09:31 -Correct Patient Yes -Correct Side, Site, Position Yes -Correct Procedure Yes -Procedure Performed Yes -Type of Procedure Debridement -Clinical Debridement Subcutaneous -Post Debridement Size (cm) - Length 0.2 -Post Debridement Size (cm) - Width 0.7 -Post Debridement Size (cm) - Depth 4.1 -Total Square Cm 0.14 -Wound/Ulcer Outcome Not Healed -Ulcer Cleansing Rinsed/ Irrigated with Saline -Foul Odor after Cleansing No -Bioengineered Tissue No -Bleeding Controlled with Pressure -Treatment Response Procedure Tolerated Well [See Physician Procedure note for Specifics] Pain Scale: 0-10 Numeric [Pain] -Is Patient Pain Free? Yes Neurological: Cranial nerves II-XII grossly intact Psych/Mental Status: Normal Affect Debridement Note Post-Debridement Measurements/Treatment WC - Nurse 2 - General Ulcer CM Notes Start: 04/14/17 09:08 Freq: Status: Active Protocol: Activity Type Activity Date Activity User E-Sign Co-Sign Detail Recorded Client Recorded Date Recorded By Document 04/14/17 10:26 DV [id number] 04/14/17 10:43 DV Document 04/21/17 08:39 DV [id number] 04/21/17 08:47 DV Document 04/28/17 09:30 DV [id number] 04/28/17 09:32 DV 04/14/17 04/21/17 04/28/17 10:26 08:39 09:30 Wound Center Nurse 2 1. RLQ -Time 10:27 08:42 09:31 -Correct Patient Yes Yes Yes -Correct Side, Site, Position Yes Yes Yes -Correct Procedure Yes Yes Yes -Procedure Performed Yes Yes Yes -Type of Procedure Debridement Debridement Debridement -Clinical Debridement Subcutaneous Subcutaneous Subcutaneous -Post Debridement Size (cm) - Length 0.2 0.2 0.2 -Post Debridement Size (cm) - Width 0.9 0.6 0.7 -Post Debridement Size (cm) - Depth 4.0 4.5 4.1 -Total Square Cm 0.18 0.12 0.14 -Wound/Ulcer Outcome Not Healed Not Healed Not Healed -Ulcer Cleansing Rinsed/ Rinsed/ Rinsed/ Irrigated with Irrigated with Irrigated with Saline Saline Saline -Foul Odor after Cleansing No No No -Bioengineered Tissue No No No -Bleeding Controlled with Pressure Pressure Pressure -Treatment Response Procedure Procedure Procedure Tolerated Well Tolerated Well Tolerated Well Pain Scale: 0-10 Numeric Is Patient Pain Free? Yes Yes Yes Wound debrided: Right sided abdominal wound Wound Grade/Stage: Stage II Type of Debridement: Excisional debridement Anesthesia Used: 4% Lidocaine Solution Depth: Down to and including healthy tissue, in the subcutaneous layer Percentage of wound debrided: 100 Instrument Used: - - 1mm Tissue Removed: Devitalized tissue. Severity: Fat Layer Exposed Amount of bleeding with debridement: Mild Bleeding Controlled with: Pressure Patient tolerated procedure well Assessment/Plan Assessment: Abdominal wound dehiscence of a 10 year surgical scar. Diabetes mellitus type 2 poorly controlled. Ulcerative Colitis. Plan: Some reduction in wound depth today. Down to 4.2 from 4.5cm at last visit. Wound circumference also narrowing with minimal serosanguinous discharge noted on mild squeeze. Debridement done today with a 1mm curette. Procedure was well tolerated. Continue follow up with [facility] surgeon. Per patient, her new surgeon believes the wound might be related to her recent Cholecystectomy ( Current consideration is for a Sinus tract vs Enterocutaneous fistula vs Chronic suture granuloma ) however, patient has complained of pain and bleeding at other abdominal sites. Patient advised to go to the [place] [facility] if she notes worsening pain both at the site and any where else. Continue increased protein intake/supplements. Continue optimal blood sugar control. Follow-up in 1 week. This note was generated with [employer] dictation software. It may contain incorrect words, spelling, and punctuation that were not noted in checking the note before signing.
[2017-04-28 11:18] LABS: Erythrocyte Sedimentation Rate 20 mm/hr (0-30)
--- NOTE | 2017-04-28 11:19 | PN.PCM_ITS ---
(1) Surgical wound dehiscence Status: Acute Qualifiers: Code(s): T81.31XA - Disruption of external operation (surgical) wound, not elsewhere classified, initial encounter (2) DM2 (diabetes mellitus, type 2) Status: Chronic Qualifiers: Code(s): E11.9 - Type 2 diabetes mellitus without complications (3) Ulcerative colitis Status: Chronic Code(s): K51.90 - Ulcerative colitis, unspecified, without complications Comment: Status post ileostomy Type of Wound Date of Service: 04/28/17 Chief Complaint: Right sided abdominal wound. History of Wound: Ms. Artis is a 56yo with an extensive past medical history who presented here on referral by her general surgeon. She was referred to general surgeon after she presented to her PCP with an opening of her 10 year surgical scar. This was said to be sudden in onset without any known precipitating factor. There has been no discharge from the site and no increased tenderness around the area either. She had been cleaning with hydrogen peroxide and dressing with gauze as recommended by her surgeon. She has a history of prior surgical wound dehiscence and these were as a result of undissolved sutures. She feels well otherwise. As stated earlier she denies any discharge from the wound site. She also denies chills, fever or otherwise feeling of unwell. Progress of Wound: No significant changes in the past week. She continues to have intermittent 'Stabbing pain' in the wound. No increased drainage. No fever or chills. She however states that she noted ? bloody discharge from her navel area a few days ago. This however stopped spontaneously. She also continues to have pain intermittently especially along previous scars. She followed up with the [facility] surgeon to whom she was referred by Dr. Noble. Care/ Investigation is ongoing. - Physical Exam Vital Signs Temp Pulse Resp BP 97 F L 78 18 124/70 H 04/28/17 08:53 04/28/17 08:53 04/28/17 08:53 04/28/17 08:53 General: Alert, Oriented x3, Cooperative, No apparent distress HEENT: Atraumatic, Normocephalic Oral: Moist Mucosa Neck: Supple Cardiovascular: Regular rate Abdomen: Soft, - - Right sided ulcer. Extremities: No cyanosis Wound Measurements and Assessment WC - Nurse 1 - General Ulcer Measurement Start: 04/14/17 09:08 Freq: Status: Active Protocol: Activity Type Activity Date Activity User E-Sign Co-Sign Detail Recorded Client Recorded Date Recorded By Document 04/28/17 08:53 RB [email or web address] 04/28/17 09:04 RB 04/28/17 08:53 Wound Center Nurse 1 [Ulcer Assessment] 1. RLQ -Combined with other wound No -Current Size (cm) - Length 0.1 -Current Size (cm) - Width 0.5 -Current Size (cm) - Depth 4.2 -Total Square Cm 0.05 -Photo Taken Yes -Tunneling No -Undermining/Tunneling No -Circular Undermining No -Classification - Thickness Full Thickness without Exposed Support Structure -Exudate Amt Medium (34-66%) -Exudate Type Serosanguineous -Wound Margin Distinct, Outline Attached -Granulation Amt Medium (34-66%) -Granulation Quality B And E -Slough/Fibrin Yes -Necrosis Amt Small (1-33%) -Necrotic Tissue Type Adherent Slough -Structure Exposed N/A -Texture (Fay-wound Skin Appearance) Assessed -Moisture (Fay-wound Skin Appearance Assessed ) -Color (Fay-wound Skin Appearance) Assessed Erythema -Temperature (Fay-wound Skin No Abnormality Appearance) (Pt Warm) -Tenderness on Palpation (Fay-wound No Skin Appearance) -Ulcer Cleansing Rinsed/ Irrigated with Saline -Foul Odor after Cleansing No -Anesthetic Used 4% Lidocaine Solution WC - Nurse 2 - General Ulcer CM Notes Start: 04/14/17 09:08 Freq: Status: Active Protocol: Activity Type Activity Date Activity User E-Sign Co-Sign Detail Recorded Client Recorded Date Recorded By Document 04/28/17 09:30 DV [id number] 04/28/17 09:32 DV 04/28/17 09:30 Wound Center Nurse 2 [Procedure/Treatment] -Time 09:31 -Correct Patient Yes -Correct Side, Site, Position Yes -Correct Procedure Yes -Procedure Performed Yes -Type of Procedure Debridement -Clinical Debridement Subcutaneous -Post Debridement Size (cm) - Length 0.2 -Post Debridement Size (cm) - Width 0.7 -Post Debridement Size (cm) - Depth 4.1 -Total Square Cm 0.14 -Wound/Ulcer Outcome Not Healed -Ulcer Cleansing Rinsed/ Irrigated with Saline -Foul Odor after Cleansing No -Bioengineered Tissue No -Bleeding Controlled with Pressure -Treatment Response Procedure Tolerated Well [See Physician Procedure note for Specifics] Pain Scale: 0-10 Numeric [Pain] -Is Patient Pain Free? Yes Neurological: Cranial nerves II-XII grossly intact Psych/Mental Status: Normal Affect Debridement Note Post-Debridement Measurements/Treatment WC - Nurse 2 - General Ulcer CM Notes Start: 04/14/17 09:08 Freq: Status: Active Protocol: Activity Type Activity Date Activity User E-Sign Co-Sign Detail Recorded Client Recorded Date Recorded By Document 04/14/17 10:26 DV [id number] 04/14/17 10:43 DV Document 04/21/17 08:39 DV [id number] 04/21/17 08:47 DV Document 04/28/17 09:30 DV [id number] 04/28/17 09:32 DV 04/14/17 04/21/17 04/28/17 10:26 08:39 09:30 Wound Center Nurse 2 1. RLQ -Time 10:27 08:42 09:31 -Correct Patient Yes Yes Yes -Correct Side, Site, Position Yes Yes Yes -Correct Procedure Yes Yes Yes -Procedure Performed Yes Yes Yes -Type of Procedure Debridement Debridement Debridement -Clinical Debridement Subcutaneous Subcutaneous Subcutaneous -Post Debridement Size (cm) - Length 0.2 0.2 0.2 -Post Debridement Size (cm) - Width 0.9 0.6 0.7 -Post Debridement Size (cm) - Depth 4.0 4.5 4.1 -Total Square Cm 0.18 0.12 0.14 -Wound/Ulcer Outcome Not Healed Not Healed Not Healed -Ulcer Cleansing Rinsed/ Rinsed/ Rinsed/ Irrigated with Irrigated with Irrigated with Saline Saline Saline -Foul Odor after Cleansing No No No -Bioengineered Tissue No No No -Bleeding Controlled with Pressure Pressure Pressure -Treatment Response Procedure Procedure Procedure Tolerated Well Tolerated Well Tolerated Well Pain Scale: 0-10 Numeric Is Patient Pain Free? Yes Yes Yes Wound debrided: Right sided abdominal wound Wound Grade/Stage: Stage II Type of Debridement: Excisional debridement Anesthesia Used: 4% Lidocaine Solution Depth: Down to and including healthy tissue, in the subcutaneous layer Percentage of wound debrided: 100 Instrument Used: - - 1mm Tissue Removed: Devitalized tissue. Severity: Fat Layer Exposed Amount of bleeding with debridement: Mild Bleeding Controlled with: Pressure Patient tolerated procedure well Assessment/Plan Assessment: Abdominal wound dehiscence of a 10 year surgical scar. Diabetes mellitus type 2 poorly controlled. Ulcerative Colitis. Plan: Some reduction in wound depth today. Down to 4.2 from 4.5cm at last visit. Wound circumference also narrowing with minimal serosanguinous discharge noted on mild squeeze. Debridement done today with a 1mm curette. Procedure was well tolerated. Continue follow up with [facility] surgeon. Per patient, her new surgeon believes the wound might be related to her recent Cholecystectomy ( Current consideration is for a Sinus tract vs Enterocutaneous fistula vs Chronic suture granuloma ) however, patient has complained of pain and bleeding at other abdominal sites. Patient advised to go to the [place] [facility] if she notes worsening pain both at the site and any where else. Continue increased protein intake/supplements. Continue optimal blood sugar control. Follow-up in 1 week. This note was generated with [employer] dictation software. It may contain incorrect words, spelling, and punctuation that were not noted in checking the note before signing.
[2017-05-05 11:53] VITALS: BP 145/82; PULSE 72; RESP 16; TEMP 36.4; BMI 31.0
--- NOTE | 2017-05-05 17:53 | PCM.WC.PN ---
(1) Surgical wound dehiscence Status: Chronic Qualifiers: Code(s): T81.31XA - Disruption of external operation (surgical) wound, not elsewhere classified, initial encounter (2) DM2 (diabetes mellitus, type 2) Status: Chronic Qualifiers: Code(s): E11.9 - Type 2 diabetes mellitus without complications (3) Ulcerative colitis Status: Chronic Code(s): K51.90 - Ulcerative colitis, unspecified, without complications Comment: Status post ileostomy Type of Wound Date of Service: 05/05/17 Chief Complaint: Right sided abdominal wound. History of Wound: Ms. Artis is a 56yo with an extensive past medical history who presented here on referral by her general surgeon. She was referred to general surgeon after she presented to her PCP with an opening of her 10 year surgical scar. This was said to be sudden in onset without any known precipitating factor. There has been no discharge from the site and no increased tenderness around the area either. She had been cleaning with hydrogen peroxide and dressing with gauze as recommended by her surgeon. She has a history of prior surgical wound dehiscence and these were as a result of undissolved sutures. She feels well otherwise. As stated earlier she denies any discharge from the wound site. She also denies chills, fever or otherwise feeling of unwell. Progress of Wound: No significant changes in the past week. Still has ocassional stinging pain in the wound area. barely able to pack wound due to surface closing. Scheduled for a test at the [facility] tomorrow. - Physical Exam Vital Signs Temp Pulse Resp BP 97.5 F L 72 16 145/82 H 05/05/17 11:53 05/05/17 11:53 05/05/17 11:53 05/05/17 11:53 General: Alert, Oriented x3, Cooperative, No apparent distress HEENT: Atraumatic, Normocephalic Oral: Moist Mucosa Neck: Supple Lungs: Normal air movement Cardiovascular: Regular rate Skin: Ulcer/ Wound Wound Measurements and Assessment WC - Nurse 1 - General Ulcer Measurement Start: 04/14/17 09:08 Freq: Status: Active Protocol: Activity Type Activity Date Activity User E-Sign Co-Sign Detail Recorded Client Recorded Date Recorded By Document 05/05/17 11:53 MW [id number] 05/05/17 11:55 MW 05/05/17 11:53 Wound Center Nurse 1 [Ulcer Assessment] 1. RLQ -Combined with other wound No -Current Size (cm) - Length 0.1 -Current Size (cm) - Width 0.5 -Current Size (cm) - Depth 4.6 -Total Square Cm 0.05 -Photo Taken No -Epithelialization None Present -Tunneling No -Undermining/Tunneling No -Circular Undermining No -Exudate Amt Small (1-33%) -Exudate Type Purulent -Wound Margin Indistinct, Non -Visible -Granulation Amt None Present (0 %) -Granulation Quality N/A -Slough/Fibrin No -Structure Exposed N/A -Texture (Fay-wound Skin Appearance) No Abnormality Assessed -Moisture (Fay-wound Skin Appearance No Abnormality ) Assessed -Color (Fay-wound Skin Appearance) No Abnormality Assessed -Temperature (Fay-wound Skin No Abnormality Appearance) (Pt Warm) -Tenderness on Palpation (Fay-wound No Skin Appearance) -Ulcer Cleansing Rinsed/ Irrigated with Saline -Foul Odor after Cleansing No -Anesthetic Used 4% Lidocaine Solution [Edema Assessment] -Lower Limb Edema Present No WC - Nurse 2 - General Ulcer CM Notes Start: 04/14/17 09:08 Freq: Status: Active Protocol: Activity Type Activity Date Activity User E-Sign Co-Sign Detail Recorded Client Recorded Date Recorded By Document 05/05/17 12:12 DV [id number] 05/05/17 12:13 DV 05/05/17 12:12 Wound Center Nurse 2 [Procedure/Treatment] 1. RLQ -Time 12:12 -Correct Patient Yes -Correct Side, Site, Position Yes -Correct Procedure Yes -Procedure Performed Yes -Type of Procedure Debridement -Clinical Debridement Subcutaneous -Post Debridement Size (cm) - Length 0.2 -Post Debridement Size (cm) - Width 0.8 -Post Debridement Size (cm) - Depth 4.6 -Total Square Cm 0.16 -Wound/Ulcer Outcome Not Healed -Ulcer Cleansing Rinsed/ Irrigated with Saline -Foul Odor after Cleansing No -Bioengineered Tissue No -Bleeding Controlled with Pressure -Treatment Response Procedure Tolerated Well [See Physician Procedure note for Specifics] Pain Scale: 0-10 Numeric [Pain] -Is Patient Pain Free? Yes Musculoskeletal: No Muscle Wasting Neurological: Cranial nerves II-XII grossly intact Psych/Mental Status: Normal Affect Debridement Note Post-Debridement Measurements/Treatment WC - Nurse 2 - General Ulcer CM Notes Start: 04/14/17 09:08 Freq: Status: Active Protocol: Activity Type Activity Date Activity User E-Sign Co-Sign Detail Recorded Client Recorded Date Recorded By Document 04/14/17 10:26 DV [id number] 04/14/17 10:43 DV Document 04/21/17 08:39 DV [id number] 04/21/17 08:47 DV Document 04/28/17 09:30 DV [id number] 04/28/17 09:32 DV Document 05/05/17 12:12 DV [id number] 05/05/17 12:13 DV 04/14/17 04/21/17 04/28/17 10:26 08:39 09:30 Wound Center Nurse 2 1. RLQ -Time 10:27 08:42 09:31 -Correct Patient Yes Yes Yes -Correct Side, Site, Position Yes Yes Yes -Correct Procedure Yes Yes Yes -Procedure Performed Yes Yes Yes -Type of Procedure Debridement Debridement Debridement -Clinical Debridement Subcutaneous Subcutaneous Subcutaneous -Post Debridement Size (cm) - Length 0.2 0.2 0.2 -Post Debridement Size (cm) - Width 0.9 0.6 0.7 -Post Debridement Size (cm) - Depth 4.0 4.5 4.1 -Total Square Cm 0.18 0.12 0.14 -Wound/Ulcer Outcome Not Healed Not Healed Not Healed -Ulcer Cleansing Rinsed/ Rinsed/ Rinsed/ Irrigated with Irrigated with Irrigated with Saline Saline Saline -Foul Odor after Cleansing No No No -Bioengineered Tissue No No No -Bleeding Controlled with Pressure Pressure Pressure -Treatment Response Procedure Procedure Procedure Tolerated Well Tolerated Well Tolerated Well Pain Scale: 0-10 Numeric Is Patient Pain Free? Yes Yes Yes 05/05/17 12:12 Wound Center Nurse 2 1. RLQ -Time 12:12 -Correct Patient Yes -Correct Side, Site, Position Yes -Correct Procedure Yes -Procedure Performed Yes -Type of Procedure Debridement -Clinical Debridement Subcutaneous -Post Debridement Size (cm) - Length 0.2 -Post Debridement Size (cm) - Width 0.8 -Post Debridement Size (cm) - Depth 4.6 -Total Square Cm 0.16 -Wound/Ulcer Outcome Not Healed -Ulcer Cleansing Rinsed/ Irrigated with Saline -Foul Odor after Cleansing No -Bioengineered Tissue No -Bleeding Controlled with Pressure -Treatment Response Procedure Tolerated Well Pain Scale: 0-10 Numeric Is Patient Pain Free? Yes Wound debrided: Right sided abdominal wound Wound Grade/Stage: Stage II Type of Debridement: Excisional debridement Anesthesia Used: 4% Lidocaine Solution Depth: Down to and including healthy tissue, in the subcutaneous layer Percentage of wound debrided: 100 Instrument Used: - - 1mm Tissue Removed: Slouh and Devitalized tissue Severity: Fat Layer Exposed Amount of bleeding with debridement: Mild Bleeding Controlled with: Pressure Patient tolerated procedure well Assessment/Plan Assessment: Abdominal wound dehiscence of a 10 year surgical scar. Diabetes mellitus type 2 poorly controlled. Ulcerative Colitis. Plan: Wound depth back up to 4.6cm however surface stays narrow. No signifcant drainage appreciated. Debridement done as documented above. Procedure was well tolerated. Patient reports difficulty dressing wound daily due to closing/ narrow surface. Advised to only pack/ dress wound with aquacel AG as able with no attempts to force it. Scheduled to follow at the [facility] tomorrow for imaging/studies. Continue follow up with [facility] surgeon as scheduled. Continue increased protein intake/supplements. Continue optimal blood sugar control. Follow-up in 1 week. This note was generated with [employer] dictation software. It may contain incorrect words, spelling, and punctuation that were not noted in checking the note before signing.
--- NOTE | 2017-05-05 17:59 | PN.PCM_ITS ---
(1) Surgical wound dehiscence Status: Chronic Qualifiers: Code(s): T81.31XA - Disruption of external operation (surgical) wound, not elsewhere classified, initial encounter (2) DM2 (diabetes mellitus, type 2) Status: Chronic Qualifiers: Code(s): E11.9 - Type 2 diabetes mellitus without complications (3) Ulcerative colitis Status: Chronic Code(s): K51.90 - Ulcerative colitis, unspecified, without complications Comment: Status post ileostomy Type of Wound Date of Service: 05/05/17 Chief Complaint: Right sided abdominal wound. History of Wound: Ms. Artis is a 56yo with an extensive past medical history who presented here on referral by her general surgeon. She was referred to general surgeon after she presented to her PCP with an opening of her 10 year surgical scar. This was said to be sudden in onset without any known precipitating factor. There has been no discharge from the site and no increased tenderness around the area either. She had been cleaning with hydrogen peroxide and dressing with gauze as recommended by her surgeon. She has a history of prior surgical wound dehiscence and these were as a result of undissolved sutures. She feels well otherwise. As stated earlier she denies any discharge from the wound site. She also denies chills, fever or otherwise feeling of unwell. Progress of Wound: No significant changes in the past week. Still has ocassional stinging pain in the wound area. barely able to pack wound due to surface closing. Scheduled for a test at the [facility] tomorrow. - Physical Exam Vital Signs Temp Pulse Resp BP 97.5 F L 72 16 145/82 H 05/05/17 11:53 05/05/17 11:53 05/05/17 11:53 05/05/17 11:53 General: Alert, Oriented x3, Cooperative, No apparent distress HEENT: Atraumatic, Normocephalic Oral: Moist Mucosa Neck: Supple Lungs: Normal air movement Cardiovascular: Regular rate Skin: Ulcer/ Wound Wound Measurements and Assessment WC - Nurse 1 - General Ulcer Measurement Start: 04/14/17 09:08 Freq: Status: Active Protocol: Activity Type Activity Date Activity User E-Sign Co-Sign Detail Recorded Client Recorded Date Recorded By Document 05/05/17 11:53 MW [id number] 05/05/17 11:55 MW 05/05/17 11:53 Wound Center Nurse 1 [Ulcer Assessment] 1. RLQ -Combined with other wound No -Current Size (cm) - Length 0.1 -Current Size (cm) - Width 0.5 -Current Size (cm) - Depth 4.6 -Total Square Cm 0.05 -Photo Taken No -Epithelialization None Present -Tunneling No -Undermining/Tunneling No -Circular Undermining No -Exudate Amt Small (1-33%) -Exudate Type Purulent -Wound Margin Indistinct, Non -Visible -Granulation Amt None Present (0 %) -Granulation Quality N/A -Slough/Fibrin No -Structure Exposed N/A -Texture (Fay-wound Skin Appearance) No Abnormality Assessed -Moisture (Fay-wound Skin Appearance No Abnormality ) Assessed -Color (Fay-wound Skin Appearance) No Abnormality Assessed -Temperature (Fay-wound Skin No Abnormality Appearance) (Pt Warm) -Tenderness on Palpation (Fay-wound No Skin Appearance) -Ulcer Cleansing Rinsed/ Irrigated with Saline -Foul Odor after Cleansing No -Anesthetic Used 4% Lidocaine Solution [Edema Assessment] -Lower Limb Edema Present No WC - Nurse 2 - General Ulcer CM Notes Start: 04/14/17 09:08 Freq: Status: Active Protocol: Activity Type Activity Date Activity User E-Sign Co-Sign Detail Recorded Client Recorded Date Recorded By Document 05/05/17 12:12 DV [id number] 05/05/17 12:13 DV 05/05/17 12:12 Wound Center Nurse 2 [Procedure/Treatment] 1. RLQ -Time 12:12 -Correct Patient Yes -Correct Side, Site, Position Yes -Correct Procedure Yes -Procedure Performed Yes -Type of Procedure Debridement -Clinical Debridement Subcutaneous -Post Debridement Size (cm) - Length 0.2 -Post Debridement Size (cm) - Width 0.8 -Post Debridement Size (cm) - Depth 4.6 -Total Square Cm 0.16 -Wound/Ulcer Outcome Not Healed -Ulcer Cleansing Rinsed/ Irrigated with Saline -Foul Odor after Cleansing No -Bioengineered Tissue No -Bleeding Controlled with Pressure -Treatment Response Procedure Tolerated Well [See Physician Procedure note for Specifics] Pain Scale: 0-10 Numeric [Pain] -Is Patient Pain Free? Yes Musculoskeletal: No Muscle Wasting Neurological: Cranial nerves II-XII grossly intact Psych/Mental Status: Normal Affect Debridement Note Post-Debridement Measurements/Treatment WC - Nurse 2 - General Ulcer CM Notes Start: 04/14/17 09:08 Freq: Status: Active Protocol: Activity Type Activity Date Activity User E-Sign Co-Sign Detail Recorded Client Recorded Date Recorded By Document 04/14/17 10:26 DV [id number] 04/14/17 10:43 DV Document 04/21/17 08:39 DV [id number] 04/21/17 08:47 DV Document 04/28/17 09:30 DV [id number] 04/28/17 09:32 DV Document 05/05/17 12:12 DV [id number] 05/05/17 12:13 DV 04/14/17 04/21/17 04/28/17 10:26 08:39 09:30 Wound Center Nurse 2 1. RLQ -Time 10:27 08:42 09:31 -Correct Patient Yes Yes Yes -Correct Side, Site, Position Yes Yes Yes -Correct Procedure Yes Yes Yes -Procedure Performed Yes Yes Yes -Type of Procedure Debridement Debridement Debridement -Clinical Debridement Subcutaneous Subcutaneous Subcutaneous -Post Debridement Size (cm) - Length 0.2 0.2 0.2 -Post Debridement Size (cm) - Width 0.9 0.6 0.7 -Post Debridement Size (cm) - Depth 4.0 4.5 4.1 -Total Square Cm 0.18 0.12 0.14 -Wound/Ulcer Outcome Not Healed Not Healed Not Healed -Ulcer Cleansing Rinsed/ Rinsed/ Rinsed/ Irrigated with Irrigated with Irrigated with Saline Saline Saline -Foul Odor after Cleansing No No No -Bioengineered Tissue No No No -Bleeding Controlled with Pressure Pressure Pressure -Treatment Response Procedure Procedure Procedure Tolerated Well Tolerated Well Tolerated Well Pain Scale: 0-10 Numeric Is Patient Pain Free? Yes Yes Yes 05/05/17 12:12 Wound Center Nurse 2 1. RLQ -Time 12:12 -Correct Patient Yes -Correct Side, Site, Position Yes -Correct Procedure Yes -Procedure Performed Yes -Type of Procedure Debridement -Clinical Debridement Subcutaneous -Post Debridement Size (cm) - Length 0.2 -Post Debridement Size (cm) - Width 0.8 -Post Debridement Size (cm) - Depth 4.6 -Total Square Cm 0.16 -Wound/Ulcer Outcome Not Healed -Ulcer Cleansing Rinsed/ Irrigated with Saline -Foul Odor after Cleansing No -Bioengineered Tissue No -Bleeding Controlled with Pressure -Treatment Response Procedure Tolerated Well Pain Scale: 0-10 Numeric Is Patient Pain Free? Yes Wound debrided: Right sided abdominal wound Wound Grade/Stage: Stage II Type of Debridement: Excisional debridement Anesthesia Used: 4% Lidocaine Solution Depth: Down to and including healthy tissue, in the subcutaneous layer Percentage of wound debrided: 100 Instrument Used: - - 1mm Tissue Removed: Slouh and Devitalized tissue Severity: Fat Layer Exposed Amount of bleeding with debridement: Mild Bleeding Controlled with: Pressure Patient tolerated procedure well Assessment/Plan Assessment: Abdominal wound dehiscence of a 10 year surgical scar. Diabetes mellitus type 2 poorly controlled. Ulcerative Colitis. Plan: Wound depth back up to 4.6cm however surface stays narrow. No signifcant drainage appreciated. Debridement done as documented above. Procedure was well tolerated. Patient reports difficulty dressing wound daily due to closing/ narrow surface. Advised to only pack/ dress wound with aquacel AG as able with no attempts to force it. Scheduled to follow at the [facility] tomorrow for imaging/ studies. Continue follow up with [facility] surgeon as scheduled. Continue increased protein intake/supplements. Continue optimal blood sugar control. Follow-up in 1 week. This note was generated with [employer] dictation software. It may contain incorrect words, spelling, and punctuation that were not noted in checking the note before signing.
== END 2017-05-05 23:59 ==
LOC: WC 11:30
PROVIDERS: Family Provider Internal Medicine; PCP Internal Medicine; Visit Provider Internal Medicine
DX: T81.31XA Disruption of external operation (surgical) wound, not elsewhere classified, initial encounter (principal); K51.90 Ulcerative colitis, unspecified, without complications; Z93.2 Ileostomy status; E11.65 Type 2 diabetes mellitus with hyperglycemia
CPT/HCPCS: 11042; 36415; 85652; 86140

== ENCOUNTER 2017-05-26 10:15 | Outpatient (RCR) | payer MEDICAID, SELFPAY ==
[2017-05-06 00:45] VITALS: BP 135/80; PULSE 72; RESP 16; TEMP 36.4; BMI 31.0
[2017-05-13 11:51] VITALS: BP 144/82; PULSE 83; RESP 18; TEMP 36.3; BMI 31.0
--- NOTE | 2017-05-13 11:54 | WC ---
pt states nausea and vomiting 2-3 times a day for past 3 days
--- NOTE | 2017-05-13 15:07 | PCM.WC.PN ---
(1) Ileostomy status Status: Acute Current Visit: No Code(s): Z93.2 - Ileostomy status (2) Abdominal pain Status: Chronic Current Visit: Yes Code(s): R10.9 - Unspecified abdominal pain (3) DM2 (diabetes mellitus, type 2) Status: Chronic Current Visit: Yes Qualifiers: Code(s): E11.9 - Type 2 diabetes mellitus without complications (4) Surgical wound dehiscence Status: Chronic Current Visit: Yes Qualifiers: Code(s): T81.31XA - Disruption of external operation (surgical) wound, not elsewhere classified, initial encounter (5) Ulcerative colitis Status: Chronic Current Visit: No Code(s): K51.90 - Ulcerative colitis, unspecified, without complications Comment: Status post ileostomy (6) Gastroparesis Status: Suspected Current Visit: No Code(s): K31.84 - Gastroparesis Type of Wound Date of Service: 05/13/17 Chief Complaint: Right sided abdominal wound. History of Wound: Ms. Artis is a 56yo with an extensive past medical history who presented here on referral by her general surgeon. She was referred to general surgeon after she presented to her PCP with an opening of her 10 year surgical scar. This was said to be sudden in onset without any known precipitating factor. There has been no discharge from the site and no increased tenderness around the area either. She had been cleaning with hydrogen peroxide and dressing with gauze as recommended by her surgeon. She has a history of prior surgical wound dehiscence and these were as a result of undissolved sutures. She feels well otherwise. As stated earlier she denies any discharge from the wound site. She also denies chills, fever or otherwise feeling of unwell. Progress of Wound: Stable. No significant changes. Test at the [facility] rescheduled for 05/24 due to insurance issues. Patient expresses frustration with the progression of wound/events. - Physical Exam Vital Signs Temp Pulse Resp BP 97.3 F L 83 18 144/82 H 05/13/17 11:51 05/13/17 11:51 05/13/17 11:51 05/13/17 11:51 General: Alert, Oriented x3, Cooperative, No apparent distress HEENT: Atraumatic, Normocephalic Neck: Supple Lungs: Normal air movement Cardiovascular: Regular rate Extremities: No cyanosis Skin: Ulcer/ Wound Wound Measurements and Assessment WC - Nurse 1 - General Ulcer Measurement Start: 05/13/17 11:51 Freq: Status: Active Protocol: Activity Type Activity Date Activity User E-Sign Co-Sign Detail Recorded Client Recorded Date Recorded By Document 05/13/17 11:51 RB [id number] 05/13/17 12:01 RB 05/13/17 11:51 Wound Center Nurse 1 [Ulcer Assessment] 1. RLQ -Combined with other wound No -Current Size (cm) - Length 0.2 -Current Size (cm) - Width 0.5 -Current Size (cm) - Depth 4 -Total Square Cm 0.10 -Photo Taken No -Epithelialization Small 1-33% -Tunneling No -Undermining/Tunneling No -Circular Undermining No -Classification - Thickness Full Thickness without Exposed Support Structure -Exudate Amt Small (1-33%) -Exudate Type Serosanguineous -Wound Margin Distinct, Outline Attached -Granulation Amt Medium (34-66%) -Granulation Quality [place] -Slough/Fibrin Yes -Necrosis Amt Small (1-33%) -Necrotic Tissue Type Adherent Slough -Structure Exposed N/A -Texture (Fay-wound Skin Appearance) Assessed -Moisture (Fay-wound Skin Appearance Assessed ) -Color (Fay-wound Skin Appearance) Assessed -Temperature (Fay-wound Skin No Abnormality Appearance) (Pt Warm) -Tenderness on Palpation (Fay-wound No Skin Appearance) -Ulcer Cleansing Rinsed/ Irrigated with Saline -Foul Odor after Cleansing No -Anesthetic Used 4% Lidocaine Solution 05/13/17 11:54 Wound Center by Trinity Maki pt states nausea and vomiting 2-3 times a day for past 3 days Initialized on 05/13/17 11:54 - END OF NOTE WC - Nurse 2 - General Ulcer CM Notes Start: 05/13/17 11:51 Freq: Status: Active Protocol: Activity Type Activity Date Activity User E-Sign Co-Sign Detail Recorded Client Recorded Date Recorded By Document 05/13/17 12:28 DV [id number] 05/13/17 12:30 DV 05/13/17 12:28 Wound Center Nurse 2 [Procedure/Treatment] -Time 12:29 -Correct Patient Yes -Correct Side, Site, Position Yes -Correct Procedure Yes -Procedure Performed Yes -Type of Procedure Debridement -Clinical Debridement Subcutaneous -Post Debridement Size (cm) - Length 0.2 -Post Debridement Size (cm) - Width 0.7 -Post Debridement Size (cm) - Depth 4.0 -Total Square Cm 0.14 -Wound/Ulcer Outcome Not Healed -Ulcer Cleansing Rinsed/ Irrigated with Saline -Foul Odor after Cleansing No -Bioengineered Tissue No -Bleeding Controlled with Pressure -Treatment Response Procedure Tolerated Well [See Physician Procedure note for Specifics] Pain Scale: 0-10 Numeric [Pain] -Is Patient Pain Free? Yes Musculoskeletal: No Muscle Wasting Neurological: Cranial nerves II-XII grossly intact Psych/Mental Status: Depressed Debridement Note Post-Debridement Measurements/Treatment WC - Nurse 2 - General Ulcer CM Notes Start: 05/13/17 11:51 Freq: Status: Active Protocol: Activity Type Activity Date Activity User E-Sign Co-Sign Detail Recorded Client Recorded Date Recorded By Document 05/13/17 12:28 DV [id number] 05/13/17 12:30 DV 05/13/17 12:28 Wound Center Nurse 2 1. RLQ -Time 12:29 -Correct Patient Yes -Correct Side, Site, Position Yes -Correct Procedure Yes -Procedure Performed Yes -Type of Procedure Debridement -Clinical Debridement Subcutaneous -Post Debridement Size (cm) - Length 0.2 -Post Debridement Size (cm) - Width 0.7 -Post Debridement Size (cm) - Depth 4.0 -Total Square Cm 0.14 -Wound/Ulcer Outcome Not Healed -Ulcer Cleansing Rinsed/ Irrigated with Saline -Foul Odor after Cleansing No -Bioengineered Tissue No -Bleeding Controlled with Pressure -Treatment Response Procedure Tolerated Well Pain Scale: 0-10 Numeric Is Patient Pain Free? Yes Wound debrided: Right sided abdominal wound Wound Grade/Stage: Stage II Type of Debridement: Excisional debridement Anesthesia Used: 4% Lidocaine Solution Depth: Down to and including healthy tissue, in the subcutaneous layer Percentage of wound debrided: 100 Instrument Used: - - 1mm Tissue Removed: Slough and devitalized tissue Severity: Fat Layer Exposed Amount of bleeding with debridement: Mild Bleeding Controlled with: Pressure Patient tolerated procedure well Assessment/Plan Active Problems (Last Reviewed 05/05/17 @ 13:05 by Erica King) Abdominal pain (Chronic) Surgical wound dehiscence (Chronic) DM2 (diabetes mellitus, type 2) (Chronic) Assessment: Abdominal wound dehiscence of a 10 year surgical scar. Diabetes mellitus type 2 poorly controlled. Ulcerative Colitis. Plan: Wound depth back down to 4cm with slight reduction in the circumference. Patient is however quite frustrated with her recurrent wound dehiscence and current progression of events. Imaging/investigation rescheduled for 05/24 due to insurance issues. Scheduled to follow up with [facility] surgeon 2 weeks after imaging. Wound debridement done as documented above. procedure was well tolerated. For now, continue daily wound dressing ith Wikidatael Ag. Continue increased protein intake/supplements. Continue optimal blood sugar control. Advised to follow up with endocrinology. Follow-up in 1 week. This note was generated with [employer] dictation software. It may contain incorrect words, spelling, and punctuation that were not noted in checking the note before signing.
--- NOTE | 2017-05-13 15:16 | PN.PCM_ITS ---
(1) Ileostomy status Status: Acute Current Visit: No Code(s): Z93.2 - Ileostomy status (2) Abdominal pain Status: Chronic Current Visit: Yes Code(s): R10.9 - Unspecified abdominal pain (3) DM2 (diabetes mellitus, type 2) Status: Chronic Current Visit: Yes Qualifiers: Code(s): E11.9 - Type 2 diabetes mellitus without complications (4) Surgical wound dehiscence Status: Chronic Current Visit: Yes Qualifiers: Code(s): T81.31XA - Disruption of external operation (surgical) wound, not elsewhere classified, initial encounter (5) Ulcerative colitis Status: Chronic Current Visit: No Code(s): K51.90 - Ulcerative colitis, unspecified, without complications Comment: Status post ileostomy (6) Gastroparesis Status: Suspected Current Visit: No Code(s): K31.84 - Gastroparesis Type of Wound Date of Service: 05/13/17 Chief Complaint: Right sided abdominal wound. History of Wound: Ms. Artis is a 56yo with an extensive past medical history who presented here on referral by her general surgeon. She was referred to general surgeon after she presented to her PCP with an opening of her 10 year surgical scar. This was said to be sudden in onset without any known precipitating factor. There has been no discharge from the site and no increased tenderness around the area either. She had been cleaning with hydrogen peroxide and dressing with gauze as recommended by her surgeon. She has a history of prior surgical wound dehiscence and these were as a result of undissolved sutures. She feels well otherwise. As stated earlier she denies any discharge from the wound site. She also denies chills, fever or otherwise feeling of unwell. Progress of Wound: Stable. No significant changes. Test at the [facility] rescheduled for 05/24 due to insurance issues. Patient expresses frustration with the progression of wound/events. - Physical Exam Vital Signs Temp Pulse Resp BP 97.3 F L 83 18 144/82 H 05/13/17 11:51 05/13/17 11:51 05/13/17 11:51 05/13/17 11:51 General: Alert, Oriented x3, Cooperative, No apparent distress HEENT: Atraumatic, Normocephalic Neck: Supple Lungs: Normal air movement Cardiovascular: Regular rate Extremities: No cyanosis Skin: Ulcer/ Wound Wound Measurements and Assessment WC - Nurse 1 - General Ulcer Measurement Start: 05/13/17 11:51 Freq: Status: Active Protocol: Activity Type Activity Date Activity User E-Sign Co-Sign Detail Recorded Client Recorded Date Recorded By Document 05/13/17 11:51 RB [id number] 05/13/17 12:01 RB 05/13/17 11:51 Wound Center Nurse 1 [Ulcer Assessment] 1. RLQ -Combined with other wound No -Current Size (cm) - Length 0.2 -Current Size (cm) - Width 0.5 -Current Size (cm) - Depth 4 -Total Square Cm 0.10 -Photo Taken No -Epithelialization Small 1-33% -Tunneling No -Undermining/Tunneling No -Circular Undermining No -Classification - Thickness Full Thickness without Exposed Support Structure -Exudate Amt Small (1-33%) -Exudate Type Serosanguineous -Wound Margin Distinct, Outline Attached -Granulation Amt Medium (34-66%) -Granulation Quality [place] -Slough/Fibrin Yes -Necrosis Amt Small (1-33%) -Necrotic Tissue Type Adherent Slough -Structure Exposed N/A -Texture (Fay-wound Skin Appearance) Assessed -Moisture (Fay-wound Skin Appearance Assessed ) -Color (Afy-wound Skin Appearance) Assessed -Temperature (Fay-wound Skin No Abnormality Appearance) (Pt Warm) -Tenderness on Palpation (Fay-wound No Skin Appearance) -Ulcer Cleansing Rinsed/ Irrigated with Saline -Foul Odor after Cleansing No -Anesthetic Used 4% Lidocaine Solution 05/13/17 11:54 Wound Center by Trinity Maki pt states nausea and vomiting 2-3 times a day for past 3 days Initialized on 05/13/17 11:54 - END OF NOTE WC - Nurse 2 - General Ulcer CM Notes Start: 05/13/17 11:51 Freq: Status: Active Protocol: Activity Type Activity Date Activity User E-Sign Co-Sign Detail Recorded Client Recorded Date Recorded By Document 05/13/17 12:28 DV [id number] 05/13/17 12:30 DV 05/13/17 12:28 Wound Center Nurse 2 [Procedure/Treatment] -Time 12:29 -Correct Patient Yes -Correct Side, Site, Position Yes -Correct Procedure Yes -Procedure Performed Yes -Type of Procedure Debridement -Clinical Debridement Subcutaneous -Post Debridement Size (cm) - Length 0.2 -Post Debridement Size (cm) - Width 0.7 -Post Debridement Size (cm) - Depth 4.0 -Total Square Cm 0.14 -Wound/Ulcer Outcome Not Healed -Ulcer Cleansing Rinsed/ Irrigated with Saline -Foul Odor after Cleansing No -Bioengineered Tissue No -Bleeding Controlled with Pressure -Treatment Response Procedure Tolerated Well [See Physician Procedure note for Specifics] Pain Scale: 0-10 Numeric [Pain] -Is Patient Pain Free? Yes Musculoskeletal: No Muscle Wasting Neurological: Cranial nerves II-XII grossly intact Psych/Mental Status: Depressed Debridement Note Post-Debridement Measurements/Treatment WC - Nurse 2 - General Ulcer CM Notes Start: 05/13/17 11:51 Freq: Status: Active Protocol: Activity Type Activity Date Activity User E-Sign Co-Sign Detail Recorded Client Recorded Date Recorded By Document 05/13/17 12:28 DV [id number] 05/13/17 12:30 DV 05/13/17 12:28 Wound Center Nurse 2 1. RLQ -Time 12:29 -Correct Patient Yes -Correct Side, Site, Position Yes -Correct Procedure Yes -Procedure Performed Yes -Type of Procedure Debridement -Clinical Debridement Subcutaneous -Post Debridement Size (cm) - Length 0.2 -Post Debridement Size (cm) - Width 0.7 -Post Debridement Size (cm) - Depth 4.0 -Total Square Cm 0.14 -Wound/Ulcer Outcome Not Healed -Ulcer Cleansing Rinsed/ Irrigated with Saline -Foul Odor after Cleansing No -Bioengineered Tissue No -Bleeding Controlled with Pressure -Treatment Response Procedure Tolerated Well Pain Scale: 0-10 Numeric Is Patient Pain Free? Yes Wound debrided: Right sided abdominal wound Wound Grade/Stage: Stage II Type of Debridement: Excisional debridement Anesthesia Used: 4% Lidocaine Solution Depth: Down to and including healthy tissue, in the subcutaneous layer Percentage of wound debrided: 100 Instrument Used: - - 1mm Tissue Removed: Slough and devitalized tissue Severity: Fat Layer Exposed Amount of bleeding with debridement: Mild Bleeding Controlled with: Pressure Patient tolerated procedure well Assessment/Plan Active Problems (Last Reviewed 05/05/17 @ 13:05 by Erica King) Abdominal pain (Chronic) Surgical wound dehiscence (Chronic) DM2 (diabetes mellitus, type 2) (Chronic) Assessment: Abdominal wound dehiscence of a 10 year surgical scar. Diabetes mellitus type 2 poorly controlled. Ulcerative Colitis. Plan: Wound depth back down to 4cm with slight reduction in the circumference. Patient is however quite frustrated with her recurrent wound dehiscence and current progression of events. Imaging/investigation rescheduled for 05/24 due to insurance issues. Scheduled to follow up with [facility] surgeon 2 weeks after imaging. Wound debridement done as documented above. procedure was well tolerated. For now, continue daily wound dressing ith Only Mallorcael Ag. Continue increased protein intake/supplements. Continue optimal blood sugar control. Advised to follow up with endocrinology. Follow-up in 1 week. This note was generated with [employer] dictation software. It may contain incorrect words, spelling, and punctuation that were not noted in checking the note before signing.
[2017-05-20 09:39] VITALS: BP 145/84; PULSE 84; RESP 18; TEMP 36.4; BMI 31.0
--- NOTE | 2017-05-20 11:17 | PCM.WC.PN ---
(1) Ileostomy status Status: Acute Current Visit: No Code(s): Z93.2 - Ileostomy status (2) Abdominal pain Status: Chronic Current Visit: Yes Code(s): R10.9 - Unspecified abdominal pain (3) DM2 (diabetes mellitus, type 2) Status: Chronic Current Visit: Yes Qualifiers: Code(s): E11.9 - Type 2 diabetes mellitus without complications (4) Surgical wound dehiscence Status: Chronic Current Visit: Yes Qualifiers: Code(s): T81.31XA - Disruption of external operation (surgical) wound, not elsewhere classified, initial encounter (5) Ulcerative colitis Status: Chronic Current Visit: No Code(s): K51.90 - Ulcerative colitis, unspecified, without complications Comment: Status post ileostomy (6) Gastroparesis Status: Suspected Current Visit: No Code(s): K31.84 - Gastroparesis Type of Wound Date of Service: 05/20/17 Chief Complaint: Right sided abdominal wound. History of Wound: Ms. Artis is a 56yo with an extensive past medical history who presented here on referral by her general surgeon. She was referred to general surgeon after she presented to her PCP with an opening of her 10 year surgical scar. This was said to be sudden in onset without any known precipitating factor. There has been no discharge from the site and no increased tenderness around the area either. She had been cleaning with hydrogen peroxide and dressing with gauze as recommended by her surgeon. She has a history of prior surgical wound dehiscence and these were as a result of undissolved sutures. She feels well otherwise. As stated earlier she denies any discharge from the wound site. She also denies chills, fever or otherwise feeling of unwell. Progress of Wound: Stable. No significant changes. [facility]. - Physical Exam Vital Signs Temp Pulse Resp BP 97.5 F L 84 18 145/84 H 05/20/17 09:39 05/20/17 09:39 05/20/17 09:39 05/20/17 09:39 General: Alert, Oriented x3, Cooperative, No apparent distress HEENT: Atraumatic, Normocephalic Oral: Moist Mucosa Neck: Supple Lungs: Normal air movement Cardiovascular: Regular rate Abdomen: Soft, Obese Extremities: No cyanosis Skin: Ulcer/ Wound Wound Measurements and Assessment - Nurse 1 - General Ulcer Measurement Start: 05/13/17 11:51 Freq: Status: Active Protocol: Activity Type Activity Date Activity User E-Sign Co-Sign Detail Recorded Client Recorded Date Recorded By Document 05/20/17 09:39 DL [id number] 05/20/17 09:46 DL 05/20/17 09:39 Wound Center Nurse 1 [Ulcer Assessment] 1. RLQ -Current Size (cm) - Length 0.2 -Current Size (cm) - Width 0.7 -Current Size (cm) - Depth 4.2 -Total Square Cm 0.14 -Photo Taken No -Exudate Amt Medium (34-66%) -Exudate Type Serosanguineous -Wound Margin Distinct, Outline Attached -Granulation Amt None Present (0 %) -Granulation Quality [place] -Necrosis Amt None Present (0 %) -Necrotic Tissue Type Adherent Slough -Structure Exposed N/A -Texture (Fay-wound Skin Appearance) Scarring -Moisture (Fay-wound Skin Appearance No Abnormality ) -Color (Fay-wound Skin Appearance) No Abnormality -Temperature (Fay-wound Skin No Abnormality Appearance) (Pt Warm) -Ulcer Cleansing Rinsed/ Irrigated with Saline -Foul Odor after Cleansing No -Anesthetic Used 4% Lidocaine Solution - Nurse 2 - General Ulcer CM Notes Start: 05/13/17 11:51 Freq: Status: Active Protocol: Activity Type Activity Date Activity User E-Sign Co-Sign Detail Recorded Client Recorded Date Recorded By Document 05/20/17 10:12 DV [id number] 05/20/17 10:13 DV 05/20/17 10:12 Wound Center Nurse 2 [Procedure/Treatment] -Time 10:12 -Correct Patient Yes -Correct Side, Site, Position Yes -Correct Procedure Yes -Procedure Performed Yes -Type of Procedure Debridement -Clinical Debridement Subcutaneous -Post Debridement Size (cm) - Length 0.2 -Post Debridement Size (cm) - Width 0.7 -Post Debridement Size (cm) - Depth 0.4 -Total Square Cm 0.14 -Wound/Ulcer Outcome Not Healed -Ulcer Cleansing Rinsed/ Irrigated with Saline -Foul Odor after Cleansing No -Bioengineered Tissue No -Bleeding Controlled with Pressure -Treatment Response Procedure Tolerated Well [See Physician Procedure note for Specifics] Pain Scale: 0-10 Numeric [Pain] -Is Patient Pain Free? Yes Musculoskeletal: No Muscle Wasting Psych/Mental Status: Normal Affect Debridement Note Post-Debridement Measurements/Treatment WC - Nurse 2 - General Ulcer CM Notes Start: 05/13/17 11:51 Freq: Status: Active Protocol: Activity Type Activity Date Activity User E-Sign Co-Sign Detail Recorded Client Recorded Date Recorded By Document 05/13/17 12:28 DV [id number] 05/13/17 12:30 DV Document 05/20/17 10:12 DV [id number] 05/20/17 10:13 DV 05/13/17 05/20/17 12:28 10:12 Wound Center Nurse 2 1. RLQ -Time 12:29 10:12 -Correct Patient Yes Yes -Correct Side, Site, Position Yes Yes -Correct Procedure Yes Yes -Procedure Performed Yes Yes -Type of Procedure Debridement Debridement -Clinical Debridement Subcutaneous Subcutaneous -Post Debridement Size (cm) - Length 0.2 0.2 -Post Debridement Size (cm) - Width 0.7 0.7 -Post Debridement Size (cm) - Depth 4.0 0.4 -Total Square Cm 0.14 0.14 -Wound/Ulcer Outcome Not Healed Not Healed -Ulcer Cleansing Rinsed/ Rinsed/ Irrigated with Irrigated with Saline Saline -Foul Odor after Cleansing No No -Bioengineered Tissue No No -Bleeding Controlled with Pressure Pressure -Treatment Response Procedure Procedure Tolerated Well Tolerated Well Pain Scale: 0-10 Numeric Is Patient Pain Free? Yes Yes Wound debrided: Right Sided Abdominal Wound. Wound Grade/Stage: Stage II Type of Debridement: Excisional debridement Anesthesia Used: 4% Lidocaine Solution Depth: Down to and including healthy tissue, in the subcutaneous layer Percentage of wound debrided: 100, - - 1mm Tissue Removed: Biofilm and Devitalized tissue Severity: Fat Layer Exposed Amount of bleeding with debridement: Mild Bleeding Controlled with: Pressure Patient tolerated procedure well Assessment/Plan Active Problems (Last Reviewed 05/05/17 @ 13:05 by Erica King) Abdominal pain (Chronic) Surgical wound dehiscence (Chronic) DM2 (diabetes mellitus, type 2) (Chronic) Assessment: Abdominal wound dehiscence of a 10 year surgical scar. Diabetes mellitus type 2 poorly controlled. Ulcerative Colitis. Plan: Wound depth stable at 4cm with also stable circumference. No significant drainage. Scheduled to follow up with [facility] surgeon on Wednesday (05/24) after imaging. Wound debridement done as documented above. Procedure was well tolerated. For now, continue daily wound dressing with Aquacel Ag. Continue increased protein intake/supplements. Continue optimal blood sugar control. Scheduled to follow up with endocrinology. Follow-up in 1 week. This note was generated with [employer] dictation software. It may contain incorrect words, spelling, and punctuation that were not noted in checking the note before signing.
--- NOTE | 2017-05-20 11:22 | PN.PCM_ITS ---
(1) Ileostomy status Status: Acute Current Visit: No Code(s): Z93.2 - Ileostomy status (2) Abdominal pain Status: Chronic Current Visit: Yes Code(s): R10.9 - Unspecified abdominal pain (3) DM2 (diabetes mellitus, type 2) Status: Chronic Current Visit: Yes Qualifiers: Code(s): E11.9 - Type 2 diabetes mellitus without complications (4) Surgical wound dehiscence Status: Chronic Current Visit: Yes Qualifiers: Code(s): T81.31XA - Disruption of external operation (surgical) wound, not elsewhere classified, initial encounter (5) Ulcerative colitis Status: Chronic Current Visit: No Code(s): K51.90 - Ulcerative colitis, unspecified, without complications Comment: Status post ileostomy (6) Gastroparesis Status: Suspected Current Visit: No Code(s): K31.84 - Gastroparesis Type of Wound Date of Service: 05/20/17 Chief Complaint: Right sided abdominal wound. History of Wound: Ms. Artis is a 56yo with an extensive past medical history who presented here on referral by her general surgeon. She was referred to general surgeon after she presented to her PCP with an opening of her 10 year surgical scar. This was said to be sudden in onset without any known precipitating factor. There has been no discharge from the site and no increased tenderness around the area either. She had been cleaning with hydrogen peroxide and dressing with gauze as recommended by her surgeon. She has a history of prior surgical wound dehiscence and these were as a result of undissolved sutures. She feels well otherwise. As stated earlier she denies any discharge from the wound site. She also denies chills, fever or otherwise feeling of unwell. Progress of Wound: Stable. No significant changes. Test at [facility]uled for 05/24. - Physical Exam Vital Signs Temp Pulse Resp BP 97.5 F L 84 18 145/84 H 05/20/17 09:39 05/20/17 09:39 05/20/17 09:39 05/20/17 09:39 General: Alert, Oriented x3, Cooperative, No apparent distress HEENT: Atraumatic, Normocephalic Oral: Moist Mucosa Neck: Supple Lungs: Normal air movement Cardiovascular: Regular rate Abdomen: Soft, Obese Extremities: No cyanosis Skin: Ulcer/ Wound Wound Measurements and Assessment - Nurse 1 - General Ulcer Measurement Start: 05/13/17 11:51 Freq: Status: Active Protocol: Activity Type Activity Date Activity User E-Sign Co-Sign Detail Recorded Client Recorded Date Recorded By Document 05/20/17 09:39 DL [id number] 05/20/17 09:46 DL 05/20/17 09:39 Wound Center Nurse 1 [Ulcer Assessment] 1. RLQ -Current Size (cm) - Length 0.2 -Current Size (cm) - Width 0.7 -Current Size (cm) - Depth 4.2 -Total Square Cm 0.14 -Photo Taken No -Exudate Amt Medium (34-66%) -Exudate Type Serosanguineous -Wound Margin Distinct, Outline Attached -Granulation Amt None Present (0 %) -Granulation Quality [place] -Necrosis Amt None Present (0 %) -Necrotic Tissue Type Adherent Slough -Structure Exposed N/A -Texture (Fay-wound Skin Appearance) Scarring -Moisture (Fay-wound Skin Appearance No Abnormality ) -Color (Fay-wound Skin Appearance) No Abnormality -Temperature (Fay-wound Skin No Abnormality Appearance) (Pt Warm) -Ulcer Cleansing Rinsed/ Irrigated with Saline -Foul Odor after Cleansing No -Anesthetic Used 4% Lidocaine Solution - Nurse 2 - General Ulcer CM Notes Start: 05/13/17 11:51 Freq: Status: Active Protocol: Activity Type Activity Date Activity User E-Sign Co-Sign Detail Recorded Client Recorded Date Recorded By Document 05/20/17 10:12 DV [id number] 05/20/17 10:13 DV 05/20/17 10:12 Wound Center Nurse 2 [Procedure/Treatment] -Time 10:12 -Correct Patient Yes -Correct Side, Site, Position Yes -Correct Procedure Yes -Procedure Performed Yes -Type of Procedure Debridement -Clinical Debridement Subcutaneous -Post Debridement Size (cm) - Length 0.2 -Post Debridement Size (cm) - Width 0.7 -Post Debridement Size (cm) - Depth 0.4 -Total Square Cm 0.14 -Wound/Ulcer Outcome Not Healed -Ulcer Cleansing Rinsed/ Irrigated with Saline -Foul Odor after Cleansing No -Bioengineered Tissue No -Bleeding Controlled with Pressure -Treatment Response Procedure Tolerated Well [See Physician Procedure note for Specifics] Pain Scale: 0-10 Numeric [Pain] -Is Patient Pain Free? Yes Musculoskeletal: No Muscle Wasting Psych/Mental Status: Normal Affect Debridement Note Post-Debridement Measurements/Treatment WC - Nurse 2 - General Ulcer CM Notes Start: 05/13/17 11:51 Freq: Status: Active Protocol: Activity Type Activity Date Activity User E-Sign Co-Sign Detail Recorded Client Recorded Date Recorded By Document 05/13/17 12:28 DV [id number] 05/13/17 12:30 DV Document 05/20/17 10:12 DV [id number] 05/20/17 10:13 DV 05/13/17 05/20/17 12:28 10:12 Wound Center Nurse 2 1. RLQ -Time 12:29 10:12 -Correct Patient Yes Yes -Correct Side, Site, Position Yes Yes -Correct Procedure Yes Yes -Procedure Performed Yes Yes -Type of Procedure Debridement Debridement -Clinical Debridement Subcutaneous Subcutaneous -Post Debridement Size (cm) - Length 0.2 0.2 -Post Debridement Size (cm) - Width 0.7 0.7 -Post Debridement Size (cm) - Depth 4.0 0.4 -Total Square Cm 0.14 0.14 -Wound/Ulcer Outcome Not Healed Not Healed -Ulcer Cleansing Rinsed/ Rinsed/ Irrigated with Irrigated with Saline Saline -Foul Odor after Cleansing No No -Bioengineered Tissue No No -Bleeding Controlled with Pressure Pressure -Treatment Response Procedure Procedure Tolerated Well Tolerated Well Pain Scale: 0-10 Numeric Is Patient Pain Free? Yes Yes Wound debrided: Right Sided Abdominal Wound. Wound Grade/Stage: Stage II Type of Debridement: Excisional debridement Anesthesia Used: 4% Lidocaine Solution Depth: Down to and including healthy tissue, in the subcutaneous layer Percentage of wound debrided: 100, - - 1mm Tissue Removed: Biofilm and Devitalized tissue Severity: Fat Layer Exposed Amount of bleeding with debridement: Mild Bleeding Controlled with: Pressure Patient tolerated procedure well Assessment/Plan Active Problems (Last Reviewed 05/05/17 @ 13:05 by Erica King) Abdominal pain (Chronic) Surgical wound dehiscence (Chronic) DM2 (diabetes mellitus, type 2) (Chronic) Assessment: Abdominal wound dehiscence of a 10 year surgical scar. Diabetes mellitus type 2 poorly controlled. Ulcerative Colitis. Plan: Wound depth stable at 4cm with also stable circumference. No significant drainage. Scheduled to follow up with [facility] surgeon on Wednesday (05/24) after imaging. Wound debridement done as documented above. Procedure was well tolerated. For now, continue daily wound dressing with Aquacel Ag. Continue increased protein intake/supplements. Continue optimal blood sugar control. Scheduled to follow up with endocrinology. Follow-up in 1 week. This note was generated with [employer] dictation software. It may contain incorrect words, spelling, and punctuation that were not noted in checking the note before signing.
[2017-05-26 10:25] VITALS: RESP 16; TEMP 36.4; BMI 31.0
--- NOTE | 2017-05-26 14:06 | PCM.WC.PN ---
(1) Ileostomy status Status: Acute Code(s): Z93.2 - Ileostomy status (2) Abdominal pain Status: Chronic Code(s): R10.9 - Unspecified abdominal pain (3) DM2 (diabetes mellitus, type 2) Status: Chronic Qualifiers: Code(s): E11.9 - Type 2 diabetes mellitus without complications (4) Surgical wound dehiscence Status: Chronic Qualifiers: Code(s): T81.31XA - Disruption of external operation (surgical) wound, not elsewhere classified, initial encounter (5) Ulcerative colitis Status: Chronic Code(s): K51.90 - Ulcerative colitis, unspecified, without complications Comment: Status post ileostomy (6) Gastroparesis Status: Suspected Code(s): K31.84 - Gastroparesis Type of Wound Date of Service: 05/26/17 Chief Complaint: Right sided abdominal wound. History of Wound: Ms. Artis is a 56yo with an extensive past medical history who presented here on referral by her general surgeon. She was referred to general surgeon after she presented to her PCP with an opening of her 10 year surgical scar. This was said to be sudden in onset without any known precipitating factor. There has been no discharge from the site and no increased tenderness around the area either. She had been cleaning with hydrogen peroxide and dressing with gauze as recommended by her surgeon. She has a history of prior surgical wound dehiscence and these were as a result of undissolved sutures. She feels well otherwise. As stated earlier she denies any discharge from the wound site. She also denies chills, fever or otherwise feeling of unwell. Progress of Wound: Stable. No significant changes. Had scheduled test on 05/24 and per patient she is rescheduled for another one because it was thought to be inconclusive. - Physical Exam Vital Signs Temp Pulse Resp BP 97.5 F L 84 16 145/84 H 05/26/17 10:25 05/20/17 09:39 05/26/17 10:25 05/20/17 09:39 General: Alert, Oriented x3, Cooperative, No apparent distress HEENT: Atraumatic, Normocephalic Oral: Moist Mucosa Neck: Supple Lungs: Normal air movement Cardiovascular: Regular rate Abdomen: Soft Extremities: No cyanosis Skin: Ulcer/ Wound Wound Measurements and Assessment WC - Nurse 1 - General Ulcer Measurement Start: 05/13/17 11:51 Freq: Status: Active Protocol: Activity Type Activity Date Activity User E-Sign Co-Sign Detail Recorded Client Recorded Date Recorded By Document 05/26/17 10:25 [facility] [id number] 05/26/17 10:33 [facility] 05/26/17 10:25 Wound Center Nurse 1 [Ulcer Assessment] 1. RLQ -Combined with other wound No -Current Size (cm) - Length 0.5 -Current Size (cm) - Width 0.1 -Current Size (cm) - Depth 0.2 -Total Square Cm 0.05 -Photo Taken No -Epithelialization None Present -Exudate Amt Small (1-33%) -Exudate Type Sanguineous -Wound Margin Distinct, Outline Attached -Granulation Amt Large (67-100%) -Granulation Quality [place] -Slough/Fibrin No -Necrosis Amt None Present (0 %) -Texture (Fay-wound Skin Appearance) Scarring -Moisture (Fay-wound Skin Appearance Assessed ) -Color (Fay-wound Skin Appearance) Erythema -Temperature (Fay-wound Skin No Abnormality Appearance) (Pt Warm) -Tenderness on Palpation (Fay-wound No Skin Appearance) -Ulcer Cleansing Rinsed/ Irrigated with Saline -Foul Odor after Cleansing No -Anesthetic Used 4% Lidocaine Solution WC - Nurse 2 - General Ulcer CM Notes Start: 05/13/17 11:51 Freq: Status: Active Protocol: Activity Type Activity Date Activity User E-Sign Co-Sign Detail Recorded Client Recorded Date Recorded By Document 05/26/17 10:54 DV [id number] 05/26/17 10:56 DV 05/26/17 10:54 Wound Center Nurse 2 [Procedure/Treatment] -Time 10:54 -Correct Patient Yes -Correct Side, Site, Position Yes -Procedure Performed No -Wound/Ulcer Outcome Not Healed [See Physician Procedure note for Specifics] Pain Scale: 0-10 Numeric [Pain] -Is Patient Pain Free? Yes Musculoskeletal: No Muscle Wasting Neurological: Cranial nerves II-XII grossly intact Psych/Mental Status: Normal Affect Debridement Note Post-Debridement Measurements/Treatment WC - Nurse 2 - General Ulcer CM Notes Start: 05/13/17 11:51 Freq: Status: Active Protocol: Activity Type Activity Date Activity User E-Sign Co-Sign Detail Recorded Client Recorded Date Recorded By Document 05/13/17 12:28 DV [id number] 05/13/17 12:30 DV Document 05/20/17 10:12 DV [id number] 05/20/17 10:13 DV Document 05/26/17 10:54 DV [id number] 05/26/17 10:56 DV 05/13/17 05/20/17 05/26/17 12:28 10:12 10:54 Wound Center Nurse 2 1. RLQ -Time 12:29 10:12 10:54 -Correct Patient Yes Yes Yes -Correct Side, Site, Position Yes Yes Yes -Correct Procedure Yes Yes -Procedure Performed Yes Yes No -Type of Procedure Debridement Debridement -Clinical Debridement Subcutaneous Subcutaneous -Post Debridement Size (cm) - Length 0.2 0.2 -Post Debridement Size (cm) - Width 0.7 0.7 -Post Debridement Size (cm) - Depth 4.0 0.4 -Total Square Cm 0.14 0.14 -Wound/Ulcer Outcome Not Healed Not Healed Not Healed -Ulcer Cleansing Rinsed/ Rinsed/ Irrigated with Irrigated with Saline Saline -Foul Odor after Cleansing No No -Bioengineered Tissue No No -Bleeding Controlled with Pressure Pressure -Treatment Response Procedure Procedure Tolerated Well Tolerated Well Pain Scale: 0-10 Numeric Is Patient Pain Free? Yes Yes Yes No debridement was completed today Assessment/Plan Assessment: Abdominal wound dehiscence of a 10 year surgical scar. Diabetes mellitus type 2 poorly controlled. Ulcerative Colitis. Plan: No debridement was done today. Per patient, her [facility] surgeon does not want her coming to the wound center or packing the wound with any dressing. She is however unsure of his plans regarding the possible sinus tract however, due to the inconclusive test on 05/24, plan is for a repeat fistulogram. Cover area with guaze ABD and a band aid to absorb any drainage. Continue increased protein intake/supplements. Continue optimal blood sugar control. Discharged from the wound clinic. This note was generated with [employer] software. It may contain incorrect words, spelling, and punctuation that were not noted in checking the note before signing.
--- NOTE | 2017-05-26 14:11 | PN.PCM_ITS ---
(1) Ileostomy status Status: Acute Code(s): Z93.2 - Ileostomy status (2) Abdominal pain Status: Chronic Code(s): R10.9 - Unspecified abdominal pain (3) DM2 (diabetes mellitus, type 2) Status: Chronic Qualifiers: Code(s): E11.9 - Type 2 diabetes mellitus without complications (4) Surgical wound dehiscence Status: Chronic Qualifiers: Code(s): T81.31XA - Disruption of external operation (surgical) wound, not elsewhere classified, initial encounter (5) Ulcerative colitis Status: Chronic Code(s): K51.90 - Ulcerative colitis, unspecified, without complications Comment: Status post ileostomy (6) Gastroparesis Status: Suspected Code(s): K31.84 - Gastroparesis Type of Wound Date of Service: 05/26/17 Chief Complaint: Right sided abdominal wound. History of Wound: Ms. Artis is a 56yo with an extensive past medical history who presented here on referral by her general surgeon. She was referred to general surgeon after she presented to her PCP with an opening of her 10 year surgical scar. This was said to be sudden in onset without any known precipitating factor. There has been no discharge from the site and no increased tenderness around the area either. She had been cleaning with hydrogen peroxide and dressing with gauze as recommended by her surgeon. She has a history of prior surgical wound dehiscence and these were as a result of undissolved sutures. She feels well otherwise. As stated earlier she denies any discharge from the wound site. She also denies chills, fever or otherwise feeling of unwell. Progress of Wound: Stable. No significant changes. Had scheduled test on 05/24 and per patient she is rescheduled for another one because it was thought to be inconclusive. - Physical Exam Vital Signs Temp Pulse Resp BP 97.5 F L 84 16 145/84 H 05/26/17 10:25 05/20/17 09:39 05/26/17 10:25 05/20/17 09:39 General: Alert, Oriented x3, Cooperative, No apparent distress HEENT: Atraumatic, Normocephalic Oral: Moist Mucosa Neck: Supple Lungs: Normal air movement Cardiovascular: Regular rate Abdomen: Soft Extremities: No cyanosis Skin: Ulcer/ Wound Wound Measurements and Assessment WC - Nurse 1 - General Ulcer Measurement Start: 05/13/17 11:51 Freq: Status: Active Protocol: Activity Type Activity Date Activity User E-Sign Co-Sign Detail Recorded Client Recorded Date Recorded By Document 05/26/17 10:25 [facility] [id number] 05/26/17 10:33 [facility] 05/26/17 10:25 Wound Center Nurse 1 [Ulcer Assessment] 1. RLQ -Combined with other wound No -Current Size (cm) - Length 0.5 -Current Size (cm) - Width 0.1 -Current Size (cm) - Depth 0.2 -Total Square Cm 0.05 -Photo Taken No -Epithelialization None Present -Exudate Amt Small (1-33%) -Exudate Type Sanguineous -Wound Margin Distinct, Outline Attached -Granulation Amt Large (67-100%) -Granulation Quality [place] -Slough/Fibrin No -Necrosis Amt None Present (0 %) -Texture (Fay-wound Skin Appearance) Scarring -Moisture (Fay-wound Skin Appearance Assessed ) -Color (Fay-wound Skin Appearance) Erythema -Temperature (Fay-wound Skin No Abnormality Appearance) (Pt Warm) -Tenderness on Palpation (Fay-wound No Skin Appearance) -Ulcer Cleansing Rinsed/ Irrigated with Saline -Foul Odor after Cleansing No -Anesthetic Used 4% Lidocaine Solution WC - Nurse 2 - General Ulcer CM Notes Start: 05/13/17 11:51 Freq: Status: Active Protocol: Activity Type Activity Date Activity User E-Sign Co-Sign Detail Recorded Client Recorded Date Recorded By Document 05/26/17 10:54 DV [id number] 05/26/17 10:56 DV 05/26/17 10:54 Wound Center Nurse 2 [Procedure/Treatment] -Time 10:54 -Correct Patient Yes -Correct Side, Site, Position Yes -Procedure Performed No -Wound/Ulcer Outcome Not Healed [See Physician Procedure note for Specifics] Pain Scale: 0-10 Numeric [Pain] -Is Patient Pain Free? Yes Musculoskeletal: No Muscle Wasting Neurological: Cranial nerves II-XII grossly intact Psych/Mental Status: Normal Affect Debridement Note Post-Debridement Measurements/Treatment WC - Nurse 2 - General Ulcer CM Notes Start: 05/13/17 11:51 Freq: Status: Active Protocol: Activity Type Activity Date Activity User E-Sign Co-Sign Detail Recorded Client Recorded Date Recorded By Document 05/13/17 12:28 DV [id number] 05/13/17 12:30 DV Document 05/20/17 10:12 DV [id number] 05/20/17 10:13 DV Document 05/26/17 10:54 DV [id number] 05/26/17 10:56 DV 05/13/17 05/20/17 05/26/17 12:28 10:12 10:54 Wound Center Nurse 2 1. RLQ -Time 12:29 10:12 10:54 -Correct Patient Yes Yes Yes -Correct Side, Site, Position Yes Yes Yes -Correct Procedure Yes Yes -Procedure Performed Yes Yes No -Type of Procedure Debridement Debridement -Clinical Debridement Subcutaneous Subcutaneous -Post Debridement Size (cm) - Length 0.2 0.2 -Post Debridement Size (cm) - Width 0.7 0.7 -Post Debridement Size (cm) - Depth 4.0 0.4 -Total Square Cm 0.14 0.14 -Wound/Ulcer Outcome Not Healed Not Healed Not Healed -Ulcer Cleansing Rinsed/ Rinsed/ Irrigated with Irrigated with Saline Saline -Foul Odor after Cleansing No No -Bioengineered Tissue No No -Bleeding Controlled with Pressure Pressure -Treatment Response Procedure Procedure Tolerated Well Tolerated Well Pain Scale: 0-10 Numeric Is Patient Pain Free? Yes Yes Yes No debridement was completed today Assessment/Plan Assessment: Abdominal wound dehiscence of a 10 year surgical scar. Diabetes mellitus type 2 poorly controlled. Ulcerative Colitis. Plan: No debridement was done today. Per patient, her [facility] surgeon does not want her coming to the wound center or packing the wound with any dressing. She is however unsure of his plans regarding the possible sinus tract however, due to the inconclusive test on 05/24, plan is for a repeat fistulogram. Cover area with guaze ABD and a band aid to absorb any drainage. Continue increased protein intake/supplements. Continue optimal blood sugar control. Discharged from the wound clinic. This note was generated with [employer] software. It may contain incorrect words, spelling, and punctuation that were not noted in checking the note before signing.
== END 2017-06-05 23:59 ==
LOC: WC 10:15
PROVIDERS: Family Provider Internal Medicine; PCP Internal Medicine; Visit Provider Internal Medicine
DX: T81.31XA Disruption of external operation (surgical) wound, not elsewhere classified, initial encounter (principal); E11.9 Type 2 diabetes mellitus without complications; Z93.2 Ileostomy status; K51.90 Ulcerative colitis, unspecified, without complications; K31.84 Gastroparesis; E11.65 Type 2 diabetes mellitus with hyperglycemia
CPT/HCPCS: 11042; 99213; G0463

== ENCOUNTER 2017-05-27 00:53 | Emergency (ER) | payer MEDICAID, SELFPAY ==
[2017-05-27 00:57] VITALS: BP 200/91; PULSE 110; RESP 25; TEMP 36.8; O2SAT 96; BMI 32.4
--- NOTE | 2017-05-27 01:14 | RAD_ITS ---
STUDY: X-RAY CHEST REASON FOR EXAM: Female, 56 years old. Chest pain TECHNIQUE: Single frontal view of the chest. COMPARISON: 03/10/2017 FINDINGS: Median sternotomy wires and CABG clips. The lungs are clear and expanded. There is no demonstrated pleural abnormality. Normal size heart. Normal mediastinum and marie. Normal visualized pulmonary arteries. Normal visualized aortic arch and descending thoracic aorta. Normal visualized thoracic spine. Normal visualized ribs, clavicles, and shoulders. There is no demonstrated abnormality of the visualized soft tissue structures of the upper abdomen. RAD/Chest 1 View (Portable) IMPRESSION: No acute pulmonary findings. Electronically Signed: Kendrick Shin MD at 2:40 EDT Tel , Service support ,
--- NOTE | 2017-05-27 01:15 | CT_ITS ---
STUDY: CT ABDOMEN AND PELVIS WITHOUT CONTRAST REASON FOR EXAM: Female, 56 years old. Wound infection RADIATION DOSAGE (If Supplied By Facility): CTDIvol = ( 13.37 ) mGy, DLP = ( 711.30 ) mGycm TECHNIQUE: Transaxial images were obtained from the dome of the diaphragm to the symphysis pubis without oral contrast, and without intravenous contrast. Sagittal and coronal images were reconstructed. Individualized dose optimization techniques were used for this CT. COMPARISON: April 19, 2017 FINDINGS: The visualized lung bases are unremarkable. The visualized portions of the heart are within normal limits. Median sternotomy wires. Field aorta aortic calcifications. Normal liver. There is non-visualization of the gallbladder, which may be secondary to either contraction or a prior cholecystectomy. Normal spleen. Normal pancreas. Normal bilateral adrenal glands. Malrotated right kidney. Normal left kidney. Normal visualized stomach. Proximal small bowel anastomosis. Left lower quadrant ileostomy. Enlarging peristomal hernia containing fat. A colectomy has been performed. The appendix is visualized and appears normal. Normal abdominal aorta. Normal inferior vena cava. Normal retroperitoneum. Normal urinary bladder. Prior ostomy site involving the right lower abdominal wall is visible. No well-formed abscess is seen. No fistulae are identified by noncontrast CT. Normal osseous structures. CT/Abdomen/Pelvis without Cont IMPRESSION: No abscesses or fistulae are identified on noncontrast CT. Enlarging fat-containing left peristomal hernia. No bowel obstruction. Electronically Signed: Kendrick Shin MD at 2:45 EDT Tel , Service support ,
--- NOTE | 2017-05-27 01:15 | EKG12_ITS ---
Test Reason : Blood Pressure : / mmHG Vent. Rate : 111 BPM Atrial Rate : 111 BPM P-R Int : 164 ms QRS Dur : 088 ms QT Int : 338 ms P-R-T Axes : 044 -27 126 degrees QTc Int : [address] & T wave abnormality, consider lateral ischemia Abnormal ECG Confirmed by CHLOÉ DOMINGUEZ, AL ([id number]), newspaper or periodical editor MALIK HULL ([id number]) on 05/28/2017 2:45:14 PM Referred By: SAMMIE Confirmed By:AL LUEVANO MD
[2017-05-27 01:34] LABS: Absolute Lymphocyte Count 2.79 X10^3/ul (0.83-4.51); Absolute Neutrophil Count 4.3 X10^3/uL (2.0-7.7); Basophil# 0.03 X10^3/uL; Basophil% 0.4 % (0-1); Eosinophil# 0.34 X10^3/uL; Eosinophils% 4.2 % (0-5); Hematocrit 40.9 % (37-47); Hemoglobin 13.5 g/dl (12.0-15.0); Lymphocyte # 2.79 X10^3/ul (4.0); Lymphocyte % 34.7 % (19-41); Mean Corpuscular Volume 87.8 fL (81-99); Mean Platelet Vol. 11.7 fl (6.2-12.0); Monocyte# 0.46 X10^3/uL; Monocyte% 5.7 % (0-10); Neutrophil # 4.34 X10^3/uL (2.7-7.7); Neutrophil % 53.9 % (47-70); Platelet Count 183 K/mm3 (150-450); RBC Distribution Width CV 16.1 % (11.6-14.6); Red Blood Count 4.66 M/mm3 (4.2-5.4); White Blood Count 8.1 K/mm3 (4.4-11.0)
[2017-05-27 01:37] LABS: POSITIVE COUNT NO; POSITIVE DIFFERENTIAL NO; POSITIVE MORPHOLOGY NO
[2017-05-27] MEDS: Ondansetron 4 MG/2 ML Vial IV (01:40)
[2017-05-27] MEDS: Morphine 4 MG/ML Syringe IV (01:42)
[2017-05-27 01:51] LABS: Bedside Glucose 348 mg/dL (70-110)
[2017-05-27 01:54] LABS: Color, Urine Yellow (Yellow); Glucose, Dipstick 1000 mg/dl (Normal); Ketone-Dipstick 5 mg/dl (Negative); Leukocyte Esterase-Dipstick 25 /ul (Negative); Nitrite-Dipstick Positive (Negative); Occult Blood-Urine 10 /ul (Negative); Protein-Dipstick 30 mg/dl (Negative); Urine Bilirubin Dipstick Negative (Negative); Urine Clarity Sl. Cloudy (Clear); Urine Urobilinogen Normal (Normal)
[2017-05-27 02:03] LABS: Anion Gap 14 (5-15); BUN 22 mg/dL (7-18); BUN/Creat Ratio 16.2 RATIO (10-20); Calcium,Total 9.1 mg/dL (8.5-10.1); Chloride 100 mmol/L (98-107); Creatinine, Serum 1.36 mg/dL (0.55-1.02); EST Glomerular Filtration Rate 42 mL/min (>60); Est Glom Filt Rate - Afr Amer 51 mL/min (>60); Estimated Creatinine Clearance 43.85 ml/min; Glucose 403 mg/dL (74-106); Sodium Level 138 mmol/L (136-145)
[2017-05-27 02:39] VITALS: BP 179/95; PULSE 104; RESP 16; O2SAT 95
--- NOTE | 2017-05-27 03:23 | ED.VISSUMM ---
- ER Visit Summary Date of Service: 05/27/17 Chief Complaint: Elevated glucose, elevated blood pressure History of Present Illness: The patient is a 56 F presents for evaluation of elevated glucose. Blood glucose was 450 this evening, status post 20 units of short acting insulin at 10 PM. Nausea without vomiting. States that urine frequency. Denies fever, chills, sweats. States been having lower abdominal pain for the past 2 weeks, has abdominal wound in the right lower side initially followed by Dr. Curielbody was referred to Dr. Rose who has been following her wound. Denies any increasing drainage. History of hysterectomy along with cholecystectomy. History of colectomy with ileostomy. Chronic loose stools. This is states is intermittent chest pains followed by Dr. Menon. Has had persistent substernal pain over 24 hours. States this is normal for her. Pain in her lower abdomen is 5 out of 6. No changes in her insulin. Physical Examination: General: Alert and oriented ?3, no acute distress HEENT: Normocephalic, atraumatic. Moist mucosa membranes Neck: supple, nontender. Cardiovascular: Regular tachycardic rate and rhythm, no murmurs Respiratory: Normal breath sounds, symmetric, no distress Abdomen: Soft, nondistended, mild tenderness right lower abdomen. Abdominal wound, small orifice minimal drainage. No surrounding erythema or indurations. Normal bowel sounds. Extremities: Nontender, no edema, pulses intact ?4 Neuro: no focal neurological deficits. Test Results: EKG sinus rate of 111, isolated ST depression in leads I. T-wave inversions V1 to V6. Troponin negative. WBC 8.1. Hemoglobin 13.5. Potassium 4. Creatinine 1.36. Urine with leukocytes and nitrite. Urine culture pending. Ketones negative. Chest x-ray negative. CT abdomen pelvis no acute process. No abscess. Emergency Department Course and Treatment: Blood glucose was 340 on arrival. Normal anion gap. Creatinine 1.38, previously 1.23-1.7. She is given IV fluids. Morphine Zofran for pain and nausea. Due to abdominal discomfort, CT abdomen was obtained showed no abscess. No intra-abdominal process. Cardiac workup negative. Patient states normal typical symptoms for her. Over 24 hours of symptoms negative troponin likely not cardiac in nature. Chronic changes on EKG comparison to old. Urine did note signs of infection. Culture sent. Patient's blood pressure heart rate improved in the ED. She is nontoxic. Started on Cipro for her UTI. Likely infection causing her glucose elevation. She will monitor at home continue her insulin regimen. She will be continued on Cipro for 7 days. She will follow-up with her PCP. She return if any worsening symptoms. Treatment Plan: [] Disposition: Discharge Impression: 1. UTI 2. Hyperglycemia with history of diabetes 3. Elevated blood pressure 4. Atypical chest pain 5. Chronic kidney disease This note was generated with [employer] software. It may contain incorrect words, spelling, and punctuation that were not noted in review of the chart prior to signing ED Disposition - Plan for ED Patient: Disposition: Home or Assisted Living Chief Complaint: General Illness Diagnosis: Urinary tract infection, Hyperglycemia, Elevated blood pressure reading with diagnosis of hypertension, Atypical chest pain, Chronic kidney disease Instructions: ED UTI Cystitis Female, ED Hyperglycemia Diabetic, ED Chest Pain Atypical Unkn Cause Prescriptions: Ciprofloxacin [Cipro] 500 mg PO BID #14 tablet Referrals: Mala Mcgrath MD [Primary Care Provider] - 3-5 Days Fish Menon MD [STAFF PHYSICIAN] - 3-5 Days
[2017-05-27] MEDS: Ciprofloxacin 400 MG/200 ML BAG 200 MG IV (03:29)
[2017-05-27 03:49] VITALS: BP 155/90; PULSE 101; RESP 15; O2SAT 93
[2017-05-27 05:03] VITALS: BP 177/89; PULSE 94; RESP 18; O2SAT 96
== END 2017-05-27 05:04 | disposition home or self-care (01) ==
PROVIDERS: Emergency Provider Emergency Medicine; Family Provider Internal Medicine; PCP Internal Medicine
DX: E11.65 Type 2 diabetes mellitus with hyperglycemia (principal); N39.0 Urinary tract infection, site not specified; R07.89 Other chest pain; I13.0 Hypertensive heart and chronic kidney disease with heart failure and stage 1 through stage 4 chronic kidney disease, or unspecified chronic kidney disease; N18.9 Chronic kidney disease, unspecified; I50.9 Heart failure, unspecified; I25.10 Atherosclerotic heart disease of native coronary artery without angina pectoris; J44.9 Chronic obstructive pulmonary disease, unspecified; E78.00 Pure hypercholesterolemia, unspecified; Z79.4 Long term (current) use of insulin; Z79.51 Long term (current) use of inhaled steroids; Z79.82 Long term (current) use of aspirin; Z79.02 Long term (current) use of antithrombotics/antiplatelets; Z79.899 Other long term (current) drug therapy
CPT/HCPCS: 71045; 74176; 80048; 81002; 82009; 82962; 84484; 85025; 87086; 87088; 93005; 96361; 96365; 96366; 96375; 99285; J7040; A4216; J0744; J2405

== ENCOUNTER → 2017-06-02 07:51 | Outpatient (CLI) | payer MEDICAID, SELFPAY ==
--- NOTE | 2017-06-03 07:41 | PFT ---
INTRODUCTION: The patient is a 56-year-old female currently under the care of Dr. Mcgrath presents for pulmonary function testing secondary to a diagnosis of COPD. Respiratory therapy reports good patient effort. Bronchodilators were used during testing. INTERPRETATION: Forced expiration spirometry demonstrates no evidence of a large airways obstructive ventilatory impairment. There was no significant response to aerosolized bronchodilators, based upon strict ATS criteria. Spirograms are of fair quality but terminate prior to 6 seconds, likely underestimating FVC. Body plethysmography was performed and reveals a decreased TLC to 4.49 L, 81% predicted, indicative of a mild restrictive ventilatory impairment. The ERV is significantly reduced at 18% of predicted, likely indicative of an underlying body habitus effect. The remainder of the lung volumes are symmetrically reduced. Diffusing capacity by single breath CO is mildly reduced at 62% predicted. IMPRESSION: These pulmonary function studies demonstrate the presence of a mild restrictive ventilatory impairment with a symmetric reduction in diffusing capacity.
== END ==
PROVIDERS: Family Provider Internal Medicine; PCP Internal Medicine; Visit Provider Internal Medicine
DX: J44.9 Chronic obstructive pulmonary disease, unspecified (principal)
CPT/HCPCS: 94060; 94726; 94729

== ENCOUNTER 2017-06-02 10:08 | Emergency (ER) | payer MEDICAID, SELFPAY ==
[2017-06-02] VITALS (10 sets, daily range): BP systolic 146–193; BP diastolic 75–98; PULSE 77–84; RESP 14–84; TEMP -5.5–36.6; O2SAT 93–96; BMI 32.1
--- NOTE | 2017-06-02 10:31 | EKG12_ITS ---
Test Reason : REPEAT Blood Pressure : / mmHG Vent. Rate : 078 BPM Atrial Rate : 078 BPM P-R Int : 160 ms QRS Dur : 088 ms QT Int : 386 ms P-R-T Axes : 004 -20 135 degrees QTc Int : 440 ms Normal sinus rhythm Left ventricular hypertrophy with repolarization abnormality Abnormal ECG Confirmed by CHLOÉ DOMINGUEZ, AL ([id number]), sports statistician MALIK HULL ([id number]) on 06/03/2017 2:34:12 PM Referred By: LISA Confirmed By:AL LUEVANO MD
--- NOTE | 2017-06-02 10:34 | EKG12_ITS ---
Test Reason : CHEST HEAVINESS Blood Pressure : / mmHG Vent. Rate : 078 BPM Atrial Rate : 078 BPM P-R Int : 166 ms QRS Dur : 090 ms QT Int : 386 ms P-R-T Axes : 033 -19 106 degrees QTc Int : 440 ms Normal sinus rhythm Left ventricular hypertrophy with repolarization abnormality Abnormal ECG Confirmed by CHLOÉ DOMINGUEZ, AL ([id number]), scientific publications editor MALIK HULL ([id number]) on 06/03/2017 2:34:36 PM Referred By: LISA Confirmed By:AL LUEVANO MD
--- NOTE | 2017-06-02 10:37 | RAD_ITS ---
STUDY: X-RAY CHEST REASON FOR EXAM: Female, 56 years old. Chest pain. COPD, CHF and CABG. TECHNIQUE: Single AP upright portable chest image. COMPARISON: 05/27/2017 chest. FINDINGS: The lungs appear clear and well expanded. There is no demonstrated pleural abnormality. Normal size heart for projection. Normal mediastinum and marie. Normal visualized pulmonary arteries. Normal visualized aortic knob and descending thoracic aorta. Normal visualized thoracic spine, ribs, clavicles and shoulders. No change sternal wires or bilateral superior pericardial surgical clips. There is no demonstrated abnormality of the visualized soft tissue structures of the upper abdomen. No subdiaphragmatic free air seen grossly. RAD/Chest 1 View (Portable) IMPRESSION: No active cardiopulmonary disease identified. CABG, stable appearance. Electronically Signed: Chadwick Schaefer, at 12:06 EDT Tel , Service support ,
[2017-06-02] MEDS: Aspirin 81 MG TAB.CHEW 324 MG PO (10:39)
[2017-06-02 10:46] LABS: Absolute Lymphocyte Count 2.27 X10^3/ul (0.83-4.51); Absolute Neutrophil Count 4.3 X10^3/uL (2.0-7.7); Basophil# 0.06 X10^3/uL; Basophil% 0.8 % (0-1); Eosinophil# 0.35 X10^3/uL; Eosinophils% 4.5 % (0-5); Hematocrit 40.2 % (37-47); Hemoglobin 12.8 g/dl (12.0-15.0); Lymphocyte # 2.27 X10^3/ul (4.0); Lymphocyte % 29.4 % (19-41); Mean Corp Hgb Conc 31.8 g/gl (32-36); Mean Corpuscular Hgb 28.2 pg (27.0-32.0); Mean Corpuscular Volume 88.5 fL (81-99); Monocyte# 0.61 X10^3/uL; Monocyte% 7.9 % (0-10); Neutrophil # 4.31 X10^3/uL (2.7-7.7); POSITIVE COUNT NO; POSITIVE DIFFERENTIAL NO; POSITIVE MORPHOLOGY NO; Platelet Count 193 K/mm3 (150-450); RBC Distribution Width CV 16.3 % (11.6-14.6); RBC Distribution Width SD 52.5 fl (35.1-43.9); Red Blood Count 4.54 M/mm3 (4.2-5.4); White Blood Count 7.7 K/mm3 (4.4-11.0)
[2017-06-02 10:59] LABS: Anion Gap 8 (5-15); BUN 31 mg/dL (7-18); BUN/Creat Ratio 25.4 RATIO (10-20); Calcium,Total 9.2 mg/dL (8.5-10.1); Chloride 104 mmol/L (98-107); Creatinine, Serum 1.22 mg/dL (0.55-1.02); EST Glomerular Filtration Rate 48 mL/min (>60); Est Glom Filt Rate - Afr Amer 58 mL/min (>60); Estimated Creatinine Clearance 48.88 ml/min; Glucose 303 mg/dL (74-106); Potassium 4.4 mmol/L (3.5-5.1); Sodium Level 138 mmol/L (136-145)
[2017-06-02 11:52] LABS: Mucous, Urine 0 SEEN /hpf (<or=2+); Red Blood Cells-Urine 0 SEEN /hpf (0-5); White Blood Cells 0 SEEN /hpf (0-5)
[2017-06-02 11:56] LABS: Color, Urine Yellow (Yellow); Glucose, Dipstick 1000 mg/dl (Normal); Ketone-Dipstick 5 mg/dl (Negative); Leukocyte Esterase-Dipstick Negative /ul (Negative); Nitrite-Dipstick Negative (Negative); Occult Blood-Urine Negative /ul (Negative); Protein-Dipstick 30 mg/dl (Negative); Specific Gravity, Urine 1.015 (1.002-1.030); Urine Bilirubin Dipstick Negative (Negative); Urine Clarity Sl. Cloudy (Clear); Urine Urobilinogen Normal (Normal)
[2017-06-02 12:01] LABS: Bacteria RARE /hpf (None Seen); Squamous Epithelial Cells - UA 0-5 SEEN /hpf (5-10)
--- NOTE | 2017-06-02 13:30 | EKG12_ITS ---
Test Reason : CHEST HEAVINESS Blood Pressure : / mmHG Vent. Rate : 078 BPM Atrial Rate : 078 BPM P-R Int : 158 ms QRS Dur : 088 ms QT Int : 368 ms P-R-T Axes : 014 -22 124 degrees QTc Int : 419 ms Normal sinus rhythm Left ventricular hypertrophy with repolarization abnormality Abnormal ECG Confirmed by CHLOÉ DOMINGUEZ, AL ([id number]), editorial writer MALIK HULL ([id number]) on 06/03/2017 2:34:51 PM Referred By: Confirmed By:AL LUEVANO MD
--- NOTE | 2017-06-02 15:56 | ED.DCSUM_ITS ---
- ER Visit Summary Date of Service: 06/02/17 Chief Complaint: Chest discomfort, dyspnea on exertion, swelling lower extremities and 7 pound weight gain History of Present Illness: The patient is a 56 F who has known coronary disease status post 5 vessel bypass surgery. She states all of her grafts have occluded. She has 9 stents. She reports presents with chest tightness and shortness of breath. She reports shortness of breath for the past couple of days. She reports increased swelling for the past several days with 7 pound weight gain. She has chronic two-pillow orthopnea. She denies PND. She denies cough. The chest tightness is mid chest with radiation to the left upper extremity. There is no nausea, vomiting, diaphoresis. She did report shortness of breath. She predominantly complains of dyspnea on exertion. Dr. Menon was contacted early in her ER course in light of her past history. He informed me that she has been casted 16 times with no evidence of any acute recent pathology. He recommended 3 hour troponin. Patient denies fever, chills night sweats. Patient denies any ocular, visual or auditory symptoms. Patient denies any ENT symptoms. She denies any GI or symptoms. She denies myalgias or arthralgias. She does complain of increased urination. Physical Examination: Vital signs are normal. She is not hypoxic. She does appear slightly pale. Head is atraumatic nor cephalic. Pupils equal round reactive. Extra muscles are intact. Conjunctive is not injected nor is the conjunctive are pale. Nares patent. Posterior faint erythema XA. Trachea is midline. There is no carotid bruit. There is no cervical lymphadenopathy. Heart is regular without murmur, gallop or rub. S1 and S2 are normal. Lungs are clear to auscultation with good movement of air bilaterally. Abdomen is soft nontender with normal bowel sounds. There is 2+ pitting edema of the right and left lower extremity mid leg to toes. Neuro exam is nonfocal. Test Results: First EKG reveals sinus rhythm rate of 78 with LVH and repolarization changes. This was compared to prior and there may be slight difference in V3. EKG was repeated 15 minutes later and is unchanged. Initial blood work was remarkable for glucose of 303 and creatinine 1.2. Three-hour EKG and troponin are essentially unchanged. Troponin is 0.02 and the EKG is unchanged with sinus rhythm and LVH with repolarization. Patient's chest x-ray does not reveal any evidence of pulmonary congestion/CHF. Emergency Department Course and Treatment: Patient received 40 minutes of Lasix in the emergency department and insulin. She will be discharged home with prescription for insulin since she apparently is on no diuretic. She is to call Dr. Menon's office on Wednesday. Treatment Plan: Close outpatient cardiology follow-up Disposition: Discharged to home Impression: 1. Chest pain uncertain etiology 2. Dyspnea secondary to heart failure 3. Bilateral lymphedema secondary to heart failure 4. Hyperglycemia in known diabetic, type I 5. History of coronary disease 6. History of hypertension 7. History hypercholesterolemia This note was generated with [employer] dictation software. It may contain incorrect words, spelling, and punctuation that were not noted in review of the chart prior to signing ED Disposition - Plan for ED Patient: Disposition: Home or Assisted Living Chief Complaint: Weakness Instructions: ED CHF General, ED Hyperglycemia Diabetic, ED Chest Pain Atypical Unkn Cause Prescriptions: Furosemide [Lasix] 20 mg PO DAILY #30 tab Referrals: Mala Mcgrath MD [Primary Care Provider] - Fish Menon MD [STAFF PHYSICIAN] - 3-5 Days Additional Instructions: You must take your Lasix daily. Dr. Menon would like for you to call the office on Wednesday and let his staff know how you are doing.
[2017-06-02] MEDS: Furosemide 40 MG Tablet PO (16:25)
== END 2017-06-02 16:27 | disposition home or self-care (01) ==
PROVIDERS: Emergency Provider Emergency Medicine; Family Provider Internal Medicine; PCP Internal Medicine
DX: R07.9 Chest pain, unspecified (principal); I50.9 Heart failure, unspecified; R06.00 Dyspnea, unspecified; I89.0 Lymphedema, not elsewhere classified; E10.65 Type 1 diabetes mellitus with hyperglycemia; I25.10 Atherosclerotic heart disease of native coronary artery without angina pectoris; I10 Essential (primary) hypertension; E78.00 Pure hypercholesterolemia, unspecified; R30.0 Dysuria; E66.9 Obesity, unspecified; I25.2 Old myocardial infarction; J44.9 Chronic obstructive pulmonary disease, unspecified; Z95.1 Presence of aortocoronary bypass graft; Z87.891 Personal history of nicotine dependence; Z79.51 Long term (current) use of inhaled steroids; Z79.82 Long term (current) use of aspirin; Z79.02 Long term (current) use of antithrombotics/antiplatelets; Z79.4 Long term (current) use of insulin; Z79.899 Other long term (current) drug therapy
CPT/HCPCS: 36415; 71045; 80048; 81001; 84484; 85025; 93005; 94060; 94726; 94729; 99285; A4216

== ENCOUNTER 2017-06-29 10:23 | Emergency (ER) | payer MEDICAID, SELFPAY ==
[2017-06-29 10:25] VITALS: BP 153/70; PULSE 73; PULSE 76; RESP 18; TEMP 36.6; O2SAT 95; BMI 31.8
--- NOTE | 2017-06-29 10:38 | ED.VISSUMM ---
- ER Visit Summary Date of Service: 06/29/17 Chief Complaint: Upper abdominal pain History of Present Illness: The patient is a 56 F who presents with worsening right upper quadrant abdominal pain for the past week. This is associated with nausea without vomiting or diarrhea. She is status post cholecystectomy one year ago. She does have history of pancreatitis. She denies fever, chills night sweats. She denies cough, shortness of breath or difficulty breathing. She does have history of COPD. She denies chest pain. She denies pain in her extremities. She denies dysuria, frequency, urgency or hematuria. There is no history of renal ureterolithiasis. There is no history of trauma. She denies any rash or lesions. She has a chronically poorly healing abdominal wound right lower quadrant. She states she has never had pain like this before. Please read written note for complete detail Physical Examination: Blood pressure is elevated 153/70. She is afebrile and she is not hypoxic. She appears uncomfortable. Head is atraumatic normocephalic. Pupils are equal round reactive. Extraocular muscles are intact. TMs are pearly white with landmarks noted. Nares patent with no drainage. Posterior pharynx without erythema or exudate. Uvula is midline. There is no dysphonia or dysphasia. Trachea is midline. There is no stridor with auscultation of the neck. Heart is regular without murmur, gallop or rub. S1 and S2 are normal. Lungs are clear to auscultation with good movement of air bilaterally. There is no reproducible chest pain. Abdomen is remarkable for multiple well-healed scars. She has a colostomy left lower quadrant. There is stool and gas in the colostomy bag. There is no CVA tenderness. She has sniffing and tenderness in the right upper quadrant/epigastric area. There are no lesions to suggest herpes varicella-zoster. Lower extremity exam is unremarkable i.e. no swelling, discoloration, leg vein distention, palpable cords test on the distribution of deep venous system. She has a depressed affect. Neuro exam is nonfocal. Test Results: CBC is unremarkable. BMP is marked for glucose of 188 and creatinine of 1.3. Liver profile is unremarkable. Urine is unremarkable. Emergency Department Course and Treatment: IV was established and she was medicated with 4 mg of Zofran informal grams of morphine. To evaluate her symptoms a CBC, hepatic and lipase were obtained. Because there is history of end-stage renal disease BUN and creatinine were obtained as well as UA since there is equivocal discomfort with deep palpation over the right kidney and CVA tenderness. Treatment Plan: I went in to reevaluate patient at 12: 3 0 she is in no distress. After I was in the room for a minute or 2 she began to pant and have outward signs of discomfort. Patient was informed the cause of her abdominal pain is unknown. Disposition: Discharged home to follow-up with PCP Impression: 1. Acute right upper quadrant abdominal pain of unknown etiology 2. Hyperglycemia type II diabetic 3. Chronic end-stage renal disease 4. History of hypertension 5. History coronary disease with CHF This note was generated with [employer] dictation software. It may contain incorrect words, spelling, and punctuation that were not noted in review of the chart prior to signing ED Disposition - Plan for ED Patient: Disposition: Home or Assisted Living Chief Complaint: Abd Pain Instructions: ED Abdominal Pain Unkn Cause Referrals: Mala Mcgrath MD [Primary Care Provider] - 3-5 Days if not improving
[2017-06-29] MEDS: Morphine 4 MG/ML Syringe IV (10:51)
[2017-06-29] MEDS: Ondansetron 4 MG/2 ML Vial IV (10:51)
[2017-06-29 10:56] LABS: Absolute Lymphocyte Count 2.02 X10^3/ul (0.83-4.51); Absolute Neutrophil Count 5.5 X10^3/uL (2.0-7.7); Basophil# 0.05 X10^3/uL; Basophil% 0.6 % (0-1); Eosinophil# 0.35 X10^3/uL; Eosinophils% 4.1 % (0-5); Hemoglobin 13.7 g/dl (12.0-15.0); Lymphocyte # 2.02 X10^3/ul (4.0); Lymphocyte % 23.9 % (19-41); Mean Corp Hgb Conc 32.6 g/gl (32-36); Mean Corpuscular Hgb 28.9 pg (27.0-32.0); Mean Corpuscular Volume 88.6 fL (81-99); Mean Platelet Vol. 12.6 fl (6.2-12.0); Monocyte# 0.45 X10^3/uL; Monocyte% 5.3 % (0-10); Neutrophil # 5.45 X10^3/uL (2.7-7.7); Neutrophil % 64.4 % (47-70); POSITIVE COUNT NO; POSITIVE DIFFERENTIAL NO; POSITIVE MORPHOLOGY NO; Platelet Count 183 K/mm3 (150-450); RBC Distribution Width SD 48.9 fl (35.1-43.9); Red Blood Count 4.74 M/mm3 (4.2-5.4); White Blood Count 8.5 K/mm3 (4.4-11.0)
[2017-06-29 11:12] LABS: AST(SGOT) 36 U/L (15-37); Alanine Aminotransfer ALT/SGPT 39 U/L (13-56); Albumin, Serum 3.2 g/dL (3.2-5.0); Alkaline Phosphatase 143 U/L (45-117); Amylase 56 U/L (25-115); Anion Gap 8 (5-15); BUN 35 mg/dL (7-18); BUN/Creat Ratio 26.9 RATIO (10-20); Bilirubin, Direct 0.14 mg/dL (0.00-0.30); Calcium,Total 9.1 mg/dL (8.5-10.1); Chloride 106 mmol/L (98-107); EST Glomerular Filtration Rate 45 mL/min (>60); Est Glom Filt Rate - Afr Amer 54 mL/min (>60); Estimated Creatinine Clearance 45.87 ml/min; Globulin 3.8 g/dL (2.2-4.2); Glucose 188 mg/dL (74-106); Potassium 4.2 mmol/L (3.5-5.1); Sodium Level 140 mmol/L (136-145)
[2017-06-29 11:31] LABS: Mucous, Urine 0 SEEN /hpf (<or=2+); Red Blood Cells-Urine 0 SEEN /hpf (0-5); White Blood Cells 0 SEEN /hpf (0-5)
[2017-06-29 11:40] LABS: Color, Urine Yellow (Yellow); Glucose, Dipstick 100 mg/dl (Normal); Ketone-Dipstick Negative (Negative); Leukocyte Esterase-Dipstick Negative /ul (Negative); Nitrite-Dipstick Negative (Negative); Occult Blood-Urine Negative /ul (Negative); Protein-Dipstick 30 mg/dl (Negative); Specific Gravity, Urine 1.025 (1.002-1.030); Urine Bilirubin Dipstick Negative (Negative); Urine Clarity Sl. Cloudy (Clear); Urine Urobilinogen Normal (Normal)
[2017-06-29 11:53] LABS: Bacteria 1+ /hpf (None Seen); Squamous Epithelial Cells - UA 0-5 SEEN /hpf (5-10)
[2017-06-29 12:48] VITALS: BP 133/74; PULSE 79; RESP 16; O2SAT 97
== END 2017-06-29 12:49 | disposition home or self-care (01) ==
PROVIDERS: Emergency Provider Emergency Medicine; Family Provider Internal Medicine; PCP Internal Medicine
DX: R10.11 Right upper quadrant pain (principal); I13.2 Hypertensive heart and chronic kidney disease with heart failure and with stage 5 chronic kidney disease, or end stage renal disease; E11.22 Type 2 diabetes mellitus with diabetic chronic kidney disease; E11.65 Type 2 diabetes mellitus with hyperglycemia; N18.6 End stage renal disease; I50.9 Heart failure, unspecified; J44.9 Chronic obstructive pulmonary disease, unspecified; E66.9 Obesity, unspecified; I25.10 Atherosclerotic heart disease of native coronary artery without angina pectoris; E78.00 Pure hypercholesterolemia, unspecified; Z79.51 Long term (current) use of inhaled steroids; Z79.82 Long term (current) use of aspirin; Z79.02 Long term (current) use of antithrombotics/antiplatelets; Z79.4 Long term (current) use of insulin; Z79.899 Other long term (current) drug therapy
CPT/HCPCS: 80048; 80076; 81001; 82150; 85025; 96374; 96375; 99283; A4216; J2405

== ENCOUNTER 2017-06-30 09:15 | Outpatient (RCR) | payer MEDICAID, SELFPAY ==
[2017-06-06 00:40] VITALS: BP 135/80; PULSE 84; RESP 16; TEMP 36.4; BMI 31.0
[2017-06-24 09:14] VITALS: BP 162/80; PULSE 80; RESP 18; TEMP 37.4; BMI 31.0
--- NOTE | 2017-06-24 18:51 | PCM.WC.PN ---
(1) Surgical wound dehiscence Status: Chronic Current Visit: Yes Qualifiers: Code(s): T81.31XA - Disruption of external operation (surgical) wound, not elsewhere classified, initial encounter (2) DM2 (diabetes mellitus, type 2) Status: Chronic Current Visit: Yes Qualifiers: Code(s): E11.9 - Type 2 diabetes mellitus without complications (3) Ulcerative colitis Status: Chronic Current Visit: No Code(s): K51.90 - Ulcerative colitis, unspecified, without complications Comment: Status post ileostomy Type of Wound Date of Service: 06/24/17 Chief Complaint: Right sided abdominal wound. History of Wound: Ms. Artis is a 56yo with an extensive past medical history who presented here on referral by her general surgeon. She was referred to general surgeon after she presented to her PCP with an opening of her 10 year surgical scar. This was said to be sudden in onset without any known precipitating factor. There has been no discharge from the site and no increased tenderness around the area either. She had been cleaning with hydrogen peroxide and dressing with gauze as recommended by her surgeon. She has a history of prior surgical wound dehiscence and these were as a result of undissolved sutures. She feels well otherwise. As stated earlier she denies any discharge from the wound site. She also denies chills, fever or otherwise feeling of unwell. Progress of Wound: Ms. Artis is back to the wound center for continued wound care after being away for a couple of weeks. She has had difficulty following up with the [facility] surgeon and is making plans to seek a second opinion from an [facility] gastroenterology surgeon. In the meantime she has done no packing of right quadrant abdominal wound. She has noted intermittent pain and drainage from the site and particularly noted a yellowish/greenish purulent drainage over the last couple of days. Repeat imaging was recommended by her [facility] surgeon however due to logistics issues she is here to have this done. There has otherwise been no significant changes. - Physical Exam Vital Signs Temp Pulse Resp BP 99.3 F H 80 18 162/80 H 06/24/17 09:14 06/24/17 09:14 06/24/17 09:14 06/24/17 09:14 General: Alert, Oriented x3, Cooperative, No apparent distress HEENT: Atraumatic, Normocephalic Oral: Moist Mucosa Neck: Supple Lungs: Normal air movement Cardiovascular: Regular rate Abdomen: Soft, Obese, Tender Skin: Ulcer/ Wound Wound Measurements and Assessment WC - Nurse 1 - General Ulcer Measurement Start: 06/24/17 09:14 Freq: Status: Active Protocol: Activity Type Activity Date Activity User E-Sign Co-Sign Detail Recorded Client Recorded Date Recorded By Document 06/24/17 09:14 [email or web address] [id number] 06/24/17 09:34 06/24/17 09:14 Wound Center Nurse 1 [Ulcer Assessment] 1. RLQ -Combined with other wound No -Current Size (cm) - Length 1.0 -Current Size (cm) - Width 0.5 -Current Size (cm) - Depth 1.2 -Total Square Cm 0.50 -Date of Last Picture (Recall this 06/24/17 field) -Photo Taken Yes -Epithelialization None Present -Tunneling No -Undermining/Tunneling No -Circular Undermining No -Classification - Thickness Full Thickness without Exposed Support Structure -Exudate Amt Small (1-33%) -Exudate Type Purulent -Wound Margin Distinct, Outline Attached -Granulation Amt None Present (0 %) -Granulation Quality N/A -Slough/Fibrin Yes -Necrosis Amt None Present (0 %) -Necrotic Tissue Type Adherent Slough -Structure Exposed N/A -Texture (Fay-wound Skin Appearance) No Abnormality -Moisture (Fay-wound Skin Appearance No Abnormality ) -Color (Fay-wound Skin Appearance) No Abnormality -Temperature (Fay-wound Skin No Abnormality Appearance) (Pt Warm) -Tenderness on Palpation (Fay-wound Yes Skin Appearance) -Ulcer Cleansing Rinsed/ Irrigated with Saline -Foul Odor after Cleansing No -Anesthetic Used 4% Lidocaine Solution WC - Nurse 2 - General Ulcer CM Notes Start: 06/24/17 09:14 Freq: Status: Active Protocol: Activity Type Activity Date Activity User E-Sign Co-Sign Detail Recorded Client Recorded Date Recorded By Document 06/24/17 10:23 DV [id number] 06/24/17 10:25 DV 06/24/17 10:23 Wound Center Nurse 2 [Procedure/Treatment] -Time 10:24 -Correct Patient Yes -Correct Side, Site, Position Yes -Correct Procedure Yes -Procedure Performed Yes -Type of Procedure Debridement -Clinical Debridement Subcutaneous -Post Debridement Size (cm) - Length 0.4 -Post Debridement Size (cm) - Width 1.1 -Post Debridement Size (cm) - Depth 2.8 -Total Square Cm 0.44 -Wound/Ulcer Outcome Not Healed -Ulcer Cleansing Rinsed/ Irrigated with Saline -Foul Odor after Cleansing No -Bioengineered Tissue No -Bleeding Controlled with Pressure -Treatment Response Procedure Tolerated Well [See Physician Procedure note for Specifics] Pain Scale: 0-10 Numeric [Pain] -Is Patient Pain Free? Yes Musculoskeletal: No Muscle Wasting Neurological: Cranial nerves II-XII grossly intact Psych/Mental Status: Normal Affect Debridement Note Post-Debridement Measurements/Treatment WC - Nurse 2 - General Ulcer CM Notes Start: 06/24/17 09:14 Freq: Status: Active Protocol: Activity Type Activity Date Activity User E-Sign Co-Sign Detail Recorded Client Recorded Date Recorded By Document 06/24/17 10:23 DV [id number] 06/24/17 10:25 DV 06/24/17 10:23 Wound Center Nurse 2 1. RLQ -Time 10:24 -Correct Patient Yes -Correct Side, Site, Position Yes -Correct Procedure Yes -Procedure Performed Yes -Type of Procedure Debridement -Clinical Debridement Subcutaneous -Post Debridement Size (cm) - Length 0.4 -Post Debridement Size (cm) - Width 1.1 -Post Debridement Size (cm) - Depth 2.8 -Total Square Cm 0.44 -Wound/Ulcer Outcome Not Healed -Ulcer Cleansing Rinsed/ Irrigated with Saline -Foul Odor after Cleansing No -Bioengineered Tissue No -Bleeding Controlled with Pressure -Treatment Response Procedure Tolerated Well Pain Scale: 0-10 Numeric Is Patient Pain Free? Yes Wound debrided: Right sided abdominal wound Wound Grade/Stage: Stage II Type of Debridement: Excisional debridement Anesthesia Used: 4% Lidocaine Solution Depth: Down to and including healthy tissue, in the subcutaneous layer Percentage of wound debrided: 100 Instrument Used: 3mm curette Tissue Removed: Biofilm and devitalized tissue Severity: Fat Layer Exposed Amount of bleeding with debridement: Mild Bleeding Controlled with: Pressure Patient tolerated procedure well Assessment/Plan Active Problems (Last Reviewed 06/08/17 @ 10:47 by Fish Menon MD) Surgical wound dehiscence (Chronic) DM2 (diabetes mellitus, type 2) (Chronic) Assessment: Abdominal wound dehiscence of a 10 year surgical scar. Diabetes mellitus type 2 poorly controlled. Ulcerative Colitis. Plan: Ms. Artis is back to the wound center as she has had no significant progress with the [facility] surgeon. She is also noted increased pain and drainage of yellowish/greenish discharge. New growth noted around the wound edge/margin. She is pending follow-up at the [facility] gastroenterology surgery unit. Debridement done as documented above. Procedure was well-tolerated. Empiric treatment with doxycycline 100 mg twice daily and Keflex 500 mg twice daily ordered. Aquacel daily to wound with Adaptic over top. Continue increased protein intake/supplements. Continue optimal blood sugar control. Follow-up in 1 week. This note was generated with [employer] dictation software. It may contain incorrect words, spelling, and punctuation that were not noted in checking the note before signing.
--- NOTE | 2017-06-24 19:00 | PN.PCM_ITS ---
(1) Surgical wound dehiscence Status: Chronic Current Visit: Yes Qualifiers: Code(s): T81.31XA - Disruption of external operation (surgical) wound, not elsewhere classified, initial encounter (2) DM2 (diabetes mellitus, type 2) Status: Chronic Current Visit: Yes Qualifiers: Code(s): E11.9 - Type 2 diabetes mellitus without complications (3) Ulcerative colitis Status: Chronic Current Visit: No Code(s): K51.90 - Ulcerative colitis, unspecified, without complications Comment: Status post ileostomy Type of Wound Date of Service: 06/24/17 Chief Complaint: Right sided abdominal wound. History of Wound: Ms. Artis is a 56yo with an extensive past medical history who presented here on referral by her general surgeon. She was referred to general surgeon after she presented to her PCP with an opening of her 10 year surgical scar. This was said to be sudden in onset without any known precipitating factor. There has been no discharge from the site and no increased tenderness around the area either. She had been cleaning with hydrogen peroxide and dressing with gauze as recommended by her surgeon. She has a history of prior surgical wound dehiscence and these were as a result of undissolved sutures. She feels well otherwise. As stated earlier she denies any discharge from the wound site. She also denies chills, fever or otherwise feeling of unwell. Progress of Wound: Ms. Artis is back to the wound center for continued wound care after being away for a couple of weeks. She has had difficulty following up with the [facility] surgeon and is making plans to seek a second opinion from an [facility] gastroenterology surgeon. In the meantime she has done no packing of right quadrant abdominal wound. She has noted intermittent pain and drainage from the site and particularly noted a yellowish/greenish purulent drainage over the last couple of days. Repeat imaging was recommended by her [facility] surgeon however due to logistics issues she is here to have this done. There has otherwise been no significant changes. - Physical Exam Vital Signs Temp Pulse Resp BP 99.3 F H 80 18 162/80 H 06/24/17 09:14 06/24/17 09:14 06/24/17 09:14 06/24/17 09:14 General: Alert, Oriented x3, Cooperative, No apparent distress HEENT: Atraumatic, Normocephalic Oral: Moist Mucosa Neck: Supple Lungs: Normal air movement Cardiovascular: Regular rate Abdomen: Soft, Obese, Tender Skin: Ulcer/ Wound Wound Measurements and Assessment WC - Nurse 1 - General Ulcer Measurement Start: 06/24/17 09:14 Freq: Status: Active Protocol: Activity Type Activity Date Activity User E-Sign Co-Sign Detail Recorded Client Recorded Date Recorded By Document 06/24/17 09:14 [email or web address] [id number] 06/24/17 09:34 06/24/17 09:14 Wound Center Nurse 1 [Ulcer Assessment] 1. RLQ -Combined with other wound No -Current Size (cm) - Length 1.0 -Current Size (cm) - Width 0.5 -Current Size (cm) - Depth 1.2 -Total Square Cm 0.50 -Date of Last Picture (Recall this 06/24/17 field) -Photo Taken Yes -Epithelialization None Present -Tunneling No -Undermining/Tunneling No -Circular Undermining No -Classification - Thickness Full Thickness without Exposed Support Structure -Exudate Amt Small (1-33%) -Exudate Type Purulent -Wound Margin Distinct, Outline Attached -Granulation Amt None Present (0 %) -Granulation Quality N/A -Slough/Fibrin Yes -Necrosis Amt None Present (0 %) -Necrotic Tissue Type Adherent Slough -Structure Exposed N/A -Texture (Fay-wound Skin Appearance) No Abnormality -Moisture (Fay-wound Skin Appearance No Abnormality ) -Color (Fay-wound Skin Appearance) No Abnormality -Temperature (Fay-wound Skin No Abnormality Appearance) (Pt Warm) -Tenderness on Palpation (Fay-wound Yes Skin Appearance) -Ulcer Cleansing Rinsed/ Irrigated with Saline -Foul Odor after Cleansing No -Anesthetic Used 4% Lidocaine Solution WC - Nurse 2 - General Ulcer CM Notes Start: 06/24/17 09:14 Freq: Status: Active Protocol: Activity Type Activity Date Activity User E-Sign Co-Sign Detail Recorded Client Recorded Date Recorded By Document 06/24/17 10:23 DV [id number] 06/24/17 10:25 DV 06/24/17 10:23 Wound Center Nurse 2 [Procedure/Treatment] -Time 10:24 -Correct Patient Yes -Correct Side, Site, Position Yes -Correct Procedure Yes -Procedure Performed Yes -Type of Procedure Debridement -Clinical Debridement Subcutaneous -Post Debridement Size (cm) - Length 0.4 -Post Debridement Size (cm) - Width 1.1 -Post Debridement Size (cm) - Depth 2.8 -Total Square Cm 0.44 -Wound/Ulcer Outcome Not Healed -Ulcer Cleansing Rinsed/ Irrigated with Saline -Foul Odor after Cleansing No -Bioengineered Tissue No -Bleeding Controlled with Pressure -Treatment Response Procedure Tolerated Well [See Physician Procedure note for Specifics] Pain Scale: 0-10 Numeric [Pain] -Is Patient Pain Free? Yes Musculoskeletal: No Muscle Wasting Neurological: Cranial nerves II-XII grossly intact Psych/Mental Status: Normal Affect Debridement Note Post-Debridement Measurements/Treatment WC - Nurse 2 - General Ulcer CM Notes Start: 06/24/17 09:14 Freq: Status: Active Protocol: Activity Type Activity Date Activity User E-Sign Co-Sign Detail Recorded Client Recorded Date Recorded By Document 06/24/17 10:23 DV [id number] 06/24/17 10:25 DV 06/24/17 10:23 Wound Center Nurse 2 1. RLQ -Time 10:24 -Correct Patient Yes -Correct Side, Site, Position Yes -Correct Procedure Yes -Procedure Performed Yes -Type of Procedure Debridement -Clinical Debridement Subcutaneous -Post Debridement Size (cm) - Length 0.4 -Post Debridement Size (cm) - Width 1.1 -Post Debridement Size (cm) - Depth 2.8 -Total Square Cm 0.44 -Wound/Ulcer Outcome Not Healed -Ulcer Cleansing Rinsed/ Irrigated with Saline -Foul Odor after Cleansing No -Bioengineered Tissue No -Bleeding Controlled with Pressure -Treatment Response Procedure Tolerated Well Pain Scale: 0-10 Numeric Is Patient Pain Free? Yes Wound debrided: Right sided abdominal wound Wound Grade/Stage: Stage II Type of Debridement: Excisional debridement Anesthesia Used: 4% Lidocaine Solution Depth: Down to and including healthy tissue, in the subcutaneous layer Percentage of wound debrided: 100 Instrument Used: 3mm curette Tissue Removed: Biofilm and devitalized tissue Severity: Fat Layer Exposed Amount of bleeding with debridement: Mild Bleeding Controlled with: Pressure Patient tolerated procedure well Assessment/Plan Active Problems (Last Reviewed 06/08/17 @ 10:47 by Fish Menon MD) Surgical wound dehiscence (Chronic) DM2 (diabetes mellitus, type 2) (Chronic) Assessment: Abdominal wound dehiscence of a 10 year surgical scar. Diabetes mellitus type 2 poorly controlled. Ulcerative Colitis. Plan: Ms. Artis is back to the wound center as she has had no significant progress with the [facility] surgeon. She is also noted increased pain and drainage of yellowish/greenish discharge. New growth noted around the wound edge/margin. She is pending follow-up at the [facility] gastroenterology surgery unit. Debridement done as documented above. Procedure was well-tolerated. Empiric treatment with doxycycline 100 mg twice daily and Keflex 500 mg twice daily ordered. Aquacel daily to wound with Adaptic over top. Continue increased protein intake/supplements. Continue optimal blood sugar control. Follow-up in 1 week. This note was generated with [employer] dictation software. It may contain incorrect words, spelling, and punctuation that were not noted in checking the note before signing.
[2017-06-30 09:34] VITALS: BP 139/73; PULSE 69; RESP 18; TEMP 36.2; BMI 31.0
--- NOTE | 2017-06-30 11:33 | PCM.WC.PN ---
(1) Surgical wound dehiscence Status: Chronic Current Visit: Yes Qualifiers: Code(s): T81.31XA - Disruption of external operation (surgical) wound, not elsewhere classified, initial encounter (2) DM2 (diabetes mellitus, type 2) Status: Chronic Current Visit: Yes Qualifiers: Code(s): E11.9 - Type 2 diabetes mellitus without complications Comment: Dx : 1989 Last exacerbation : DKA : never Hypoglycemic episode : never ER visit : never BG remain elevated throughout the day according to patient. I have ask her to begin increasing am lantus by 4 unit increments eery 3 days until BG improved control. She states she is not sure about the U-500 working for her. (3) Ulcerative colitis Status: Chronic Current Visit: No Code(s): K51.90 - Ulcerative colitis, unspecified, without complications Comment: Status post ileostomy Type of Wound Date of Service: 06/30/17 Chief Complaint: Right sided abdominal wound. History of Wound: Ms. Artis is a 56yo with an extensive past medical history who presented here on referral by her general surgeon. She was referred to general surgeon after she presented to her PCP with an opening of her 10 year surgical scar. This was said to be sudden in onset without any known precipitating factor. There has been no discharge from the site and no increased tenderness around the area either. She had been cleaning with hydrogen peroxide and dressing with gauze as recommended by her surgeon. She has a history of prior surgical wound dehiscence and these were as a result of undissolved sutures. She feels well otherwise. As stated earlier she denies any discharge from the wound site. She also denies chills, fever or otherwise feeling of unwell. Progress of Wound: Ms. Artis is back to the wound center for continued wound care after being away for a couple of weeks. She has had difficulty following up with the [facility] surgeon and is making plans to seek a second opinion from an [facility] gastroenterology surgeon. In the meantime she has done no packing of right quadrant abdominal wound. She has noted intermittent pain and drainage from the site and particularly noted a yellowish/greenish purulent drainage over the last couple of days. Repeat imaging was recommended by her [facility] surgeon however due to logistics issues she is here to have this done. There has otherwise been no significant changes. Wound is stable today. - Physical Exam Vital Signs Temp Pulse Resp BP 97.1 F L 69 18 139/73 H 06/30/17 09:34 06/30/17 09:34 06/30/17 09:34 06/30/17 09:34 General: Alert, Oriented x3, Cooperative, No apparent distress HEENT: Atraumatic, Normocephalic Oral: Moist Mucosa Neck: Supple Lungs: Normal air movement Cardiovascular: Regular rate Abdomen: Soft, Obese Skin: Ulcer/ Wound Wound Measurements and Assessment WC - Nurse 1 - General Ulcer Measurement Start: 06/24/17 09:14 Freq: Status: Active Protocol: Activity Type Activity Date Activity User E-Sign Co-Sign Detail Recorded Client Recorded Date Recorded By Document 06/30/17 09:34 DV [id number] 06/30/17 09:40 DV 06/30/17 09:34 Wound Center Nurse 1 [Ulcer Assessment] 1. RLQ -Combined with other wound No -Current Size (cm) - Length 0.4 -Current Size (cm) - Width 0.6 -Current Size (cm) - Depth 2.2 -Total Square Cm 0.24 -Photo Taken No -Epithelialization None Present -Tunneling No -Undermining/Tunneling No -Circular Undermining No -Classification - Thickness Full Thickness without Exposed Support Structure -Exudate Amt Large (67-100%) -Exudate Type Sanguineous -Wound Margin Distinct, Outline Attached -Granulation Amt None Present (0 %) -Granulation Quality N/A -Slough/Fibrin Yes -Necrosis Amt Small (1-33%) -Necrotic Tissue Type Adherent Slough -Structure Exposed N/A -Texture (Fay-wound Skin Appearance) No Abnormality Assessed Scarring -Moisture (Fay-wound Skin Appearance No Abnormality ) Assessed -Color (Fay-wound Skin Appearance) No Abnormality Assessed -Temperature (Fay-wound Skin No Abnormality Appearance) (Pt Warm) -Tenderness on Palpation (Fay-wound Yes Skin Appearance) -Ulcer Cleansing Rinsed/ Irrigated with Saline -Foul Odor after Cleansing No -Anesthetic Used 4% Lidocaine Solution WC - Nurse 2 - General Ulcer CM Notes Start: 06/24/17 09:14 Freq: Status: Active Protocol: Activity Type Activity Date Activity User E-Sign Co-Sign Detail Recorded Client Recorded Date Recorded By Document 06/30/17 09:41 DV [id number] 06/30/17 09:44 DV 06/30/17 09:41 Wound Center Nurse 2 [Procedure/Treatment] -Time 09:42 -Correct Patient Yes -Correct Side, Site, Position Yes -Correct Procedure Yes -Procedure Performed Yes -Type of Procedure Debridement -Clinical Debridement Subcutaneous -Post Debridement Size (cm) - Length 0.4 -Post Debridement Size (cm) - Width 0.9 -Post Debridement Size (cm) - Depth 1.8 -Total Square Cm 0.36 -Wound/Ulcer Outcome Not Healed -Ulcer Cleansing Rinsed/ Irrigated with Saline -Foul Odor after Cleansing No -Bioengineered Tissue No -Bleeding Controlled with Pressure -Treatment Response Procedure Tolerated Well [See Physician Procedure note for Specifics] Pain Scale: 0-10 Numeric [Pain] -Is Patient Pain Free? Yes Neurological: Cranial nerves II-XII grossly intact Psych/Mental Status: Normal Affect Debridement Note Post-Debridement Measurements/Treatment WC - Nurse 2 - General Ulcer CM Notes Start: 06/24/17 09:14 Freq: Status: Active Protocol: Activity Type Activity Date Activity User E-Sign Co-Sign Detail Recorded Client Recorded Date Recorded By Document 06/24/17 10:23 DV [id number] 06/24/17 10:25 DV Document 06/30/17 09:41 DV [id number] 06/30/17 09:44 DV 06/24/17 06/30/17 10:23 09:41 Wound Center Nurse 2 1. RLQ -Time 10:24 09:42 -Correct Patient Yes Yes -Correct Side, Site, Position Yes Yes -Correct Procedure Yes Yes -Procedure Performed Yes Yes -Type of Procedure Debridement Debridement -Clinical Debridement Subcutaneous Subcutaneous -Post Debridement Size (cm) - Length 0.4 0.4 -Post Debridement Size (cm) - Width 1.1 0.9 -Post Debridement Size (cm) - Depth 2.8 1.8 -Total Square Cm 0.44 0.36 -Wound/Ulcer Outcome Not Healed Not Healed -Ulcer Cleansing Rinsed/ Rinsed/ Irrigated with Irrigated with Saline Saline -Foul Odor after Cleansing No No -Bioengineered Tissue No No -Bleeding Controlled with Pressure Pressure -Treatment Response Procedure Procedure Tolerated Well Tolerated Well Pain Scale: 0-10 Numeric Is Patient Pain Free? Yes Yes Wound debrided: Right sided abdominal wound Wound Grade/Stage: Stage II Type of Debridement: Excisional debridement Anesthesia Used: 4% Lidocaine Solution Depth: Down to and including healthy tissue, in the subcutaneous layer Percentage of wound debrided: 100 Instrument Used: 3mm curette Tissue Removed: Biofilm and devitalized tissue Severity: Fat Layer Exposed Amount of bleeding with debridement: Mild Bleeding Controlled with: Pressure Patient tolerated procedure well Assessment/Plan Active Problems (Last Reviewed 06/30/17 @ 07:04 by Huma Burch) Surgical wound dehiscence (Chronic) DM2 (diabetes mellitus, type 2) (Chronic) Dx : 1989 Last exacerbation : DKA : never Hypoglycemic episode : never ER visit : never BG remain elevated throughout the day according to patient. I have ask her to begin increasing am lantus by 4 unit increments eery 3 days until BG improved control. She states she is not sure about the U-500 working for her. Assessment: Abdominal wound dehiscence of a 10 year surgical scar. Diabetes mellitus type 2 poorly controlled. Ulcerative Colitis. Plan: No significant changes in the past wek. Growth/swelling noted at her last visit has now resolved. There is also no drainage or discharge apprecaited. She has completed her course of antibiotics. She is pending follow-up at the [facility] gastroenterology surgery unit. Debridement done as documented above. Procedure was well-tolerated. Continue aquacel daily to wound with Adaptic over top. Continue increased protein intake/supplements. Continue optimal blood sugar control. Follow-up in 1 week. This note was generated with [employer] dictation software. It may contain incorrect words, spelling, and punctuation that were not noted in checking the note before signing.
--- NOTE | 2017-06-30 11:39 | PN.PCM_ITS ---
(1) Surgical wound dehiscence Status: Chronic Current Visit: Yes Qualifiers: Code(s): T81.31XA - Disruption of external operation (surgical) wound, not elsewhere classified, initial encounter (2) DM2 (diabetes mellitus, type 2) Status: Chronic Current Visit: Yes Qualifiers: Code(s): E11.9 - Type 2 diabetes mellitus without complications Comment: Dx : 1991 Last exacerbation : DKA : never Hypoglycemic episode : never ER visit : never BG remain elevated throughout the day according to patient. I have ask her to begin increasing am lantus by 4 unit increments eery 3 days until BG improved control. She states she is not sure about the U-500 working for her. (3) Ulcerative colitis Status: Chronic Current Visit: No Code(s): K51.90 - Ulcerative colitis, unspecified, without complications Comment: Status post ileostomy Type of Wound Date of Service: 06/30/17 Chief Complaint: Right sided abdominal wound. History of Wound: Ms. Artis is a 56yo with an extensive past medical history who presented here on referral by her general surgeon. She was referred to general surgeon after she presented to her PCP with an opening of her 10 year surgical scar. This was said to be sudden in onset without any known precipitating factor. There has been no discharge from the site and no increased tenderness around the area either. She had been cleaning with hydrogen peroxide and dressing with gauze as recommended by her surgeon. She has a history of prior surgical wound dehiscence and these were as a result of undissolved sutures. She feels well otherwise. As stated earlier she denies any discharge from the wound site. She also denies chills, fever or otherwise feeling of unwell. Progress of Wound: Ms. Artis is back to the wound center for continued wound care after being away for a couple of weeks. She has had difficulty following up with the [facility] surgeon and is making plans to seek a second opinion from an [facility] gastroenterology surgeon. In the meantime she has done no packing of right quadrant abdominal wound. She has noted intermittent pain and drainage from the site and particularly noted a yellowish/greenish purulent drainage over the last couple of days. Repeat imaging was recommended by her [facility] surgeon however due to logistics issues she is here to have this done. There has otherwise been no significant changes. Wound is stable today. - Physical Exam Vital Signs Temp Pulse Resp BP 97.1 F L 69 18 139/73 H 06/30/17 09:34 06/30/17 09:34 06/30/17 09:34 06/30/17 09:34 General: Alert, Oriented x3, Cooperative, No apparent distress HEENT: Atraumatic, Normocephalic Oral: Moist Mucosa Neck: Supple Lungs: Normal air movement Cardiovascular: Regular rate Abdomen: Soft, Obese Skin: Ulcer/ Wound Wound Measurements and Assessment WC - Nurse 1 - General Ulcer Measurement Start: 06/24/17 09:14 Freq: Status: Active Protocol: Activity Type Activity Date Activity User E-Sign Co-Sign Detail Recorded Client Recorded Date Recorded By Document 06/30/17 09:34 DV [id number] 06/30/17 09:40 DV 06/30/17 09:34 Wound Center Nurse 1 [Ulcer Assessment] 1. RLQ -Combined with other wound No -Current Size (cm) - Length 0.4 -Current Size (cm) - Width 0.6 -Current Size (cm) - Depth 2.2 -Total Square Cm 0.24 -Photo Taken No -Epithelialization None Present -Tunneling No -Undermining/Tunneling No -Circular Undermining No -Classification - Thickness Full Thickness without Exposed Support Structure -Exudate Amt Large (67-100%) -Exudate Type Sanguineous -Wound Margin Distinct, Outline Attached -Granulation Amt None Present (0 %) -Granulation Quality N/A -Slough/Fibrin Yes -Necrosis Amt Small (1-33%) -Necrotic Tissue Type Adherent Slough -Structure Exposed N/A -Texture (Fay-wound Skin Appearance) No Abnormality Assessed Scarring -Moisture (Fay-wound Skin Appearance No Abnormality ) Assessed -Color (Fay-wound Skin Appearance) No Abnormality Assessed -Temperature (Fay-wound Skin No Abnormality Appearance) (Pt Warm) -Tenderness on Palpation (Fay-wound Yes Skin Appearance) -Ulcer Cleansing Rinsed/ Irrigated with Saline -Foul Odor after Cleansing No -Anesthetic Used 4% Lidocaine Solution WC - Nurse 2 - General Ulcer CM Notes Start: 06/24/17 09:14 Freq: Status: Active Protocol: Activity Type Activity Date Activity User E-Sign Co-Sign Detail Recorded Client Recorded Date Recorded By Document 06/30/17 09:41 DV [id number] 06/30/17 09:44 DV 06/30/17 09:41 Wound Center Nurse 2 [Procedure/Treatment] -Time 09:42 -Correct Patient Yes -Correct Side, Site, Position Yes -Correct Procedure Yes -Procedure Performed Yes -Type of Procedure Debridement -Clinical Debridement Subcutaneous -Post Debridement Size (cm) - Length 0.4 -Post Debridement Size (cm) - Width 0.9 -Post Debridement Size (cm) - Depth 1.8 -Total Square Cm 0.36 -Wound/Ulcer Outcome Not Healed -Ulcer Cleansing Rinsed/ Irrigated with Saline -Foul Odor after Cleansing No -Bioengineered Tissue No -Bleeding Controlled with Pressure -Treatment Response Procedure Tolerated Well [See Physician Procedure note for Specifics] Pain Scale: 0-10 Numeric [Pain] -Is Patient Pain Free? Yes Neurological: Cranial nerves II-XII grossly intact Psych/Mental Status: Normal Affect Debridement Note Post-Debridement Measurements/Treatment WC - Nurse 2 - General Ulcer CM Notes Start: 06/24/17 09:14 Freq: Status: Active Protocol: Activity Type Activity Date Activity User E-Sign Co-Sign Detail Recorded Client Recorded Date Recorded By Document 06/24/17 10:23 DV [id number] 06/24/17 10:25 DV Document 06/30/17 09:41 DV [id number] 06/30/17 09:44 DV 06/24/17 06/30/17 10:23 09:41 Wound Center Nurse 2 1. RLQ -Time 10:24 09:42 -Correct Patient Yes Yes -Correct Side, Site, Position Yes Yes -Correct Procedure Yes Yes -Procedure Performed Yes Yes -Type of Procedure Debridement Debridement -Clinical Debridement Subcutaneous Subcutaneous -Post Debridement Size (cm) - Length 0.4 0.4 -Post Debridement Size (cm) - Width 1.1 0.9 -Post Debridement Size (cm) - Depth 2.8 1.8 -Total Square Cm 0.44 0.36 -Wound/Ulcer Outcome Not Healed Not Healed -Ulcer Cleansing Rinsed/ Rinsed/ Irrigated with Irrigated with Saline Saline -Foul Odor after Cleansing No No -Bioengineered Tissue No No -Bleeding Controlled with Pressure Pressure -Treatment Response Procedure Procedure Tolerated Well Tolerated Well Pain Scale: 0-10 Numeric Is Patient Pain Free? Yes Yes Wound debrided: Right sided abdominal wound Wound Grade/Stage: Stage II Type of Debridement: Excisional debridement Anesthesia Used: 4% Lidocaine Solution Depth: Down to and including healthy tissue, in the subcutaneous layer Percentage of wound debrided: 100 Instrument Used: 3mm curette Tissue Removed: Biofilm and devitalized tissue Severity: Fat Layer Exposed Amount of bleeding with debridement: Mild Bleeding Controlled with: Pressure Patient tolerated procedure well Assessment/Plan Active Problems (Last Reviewed 06/30/17 @ 07:04 by Huma Burch) Surgical wound dehiscence (Chronic) DM2 (diabetes mellitus, type 2) (Chronic) Dx : 1991 Last exacerbation : DKA : never Hypoglycemic episode : never ER visit : never BG remain elevated throughout the day according to patient. I have ask her to begin increasing am lantus by 4 unit increments eery 3 days until BG improved control. She states she is not sure about the U-500 working for her. Assessment: Abdominal wound dehiscence of a 10 year surgical scar. Diabetes mellitus type 2 poorly controlled. Ulcerative Colitis. Plan: No significant changes in the past wek. Growth/swelling noted at her last visit has now resolved. There is also no drainage or discharge apprecaited. She has completed her course of antibiotics. She is pending follow-up at the [facility] gastroenterology surgery unit. Debridement done as documented above. Procedure was well-tolerated. Continue aquacel daily to wound with Adaptic over top. Continue increased protein intake/supplements. Continue optimal blood sugar control. Follow-up in 1 week. This note was generated with [employer] dictation software. It may contain incorrect words, spelling, and punctuation that were not noted in checking the note before signing.
== END 2017-07-05 23:59 ==
LOC: WC 09:15
PROVIDERS: Family Provider Internal Medicine; PCP Internal Medicine; Visit Provider Internal Medicine
DX: T81.30XA Disruption of wound, unspecified, initial encounter (principal); Y83.8 Other surgical procedures as the cause of abnormal reaction of the patient, or of later complication, without mention of misadventure at the time of the procedure; K51.90 Ulcerative colitis, unspecified, without complications; E11.65 Type 2 diabetes mellitus with hyperglycemia
CPT/HCPCS: 11042

== ENCOUNTER 2017-07-07 10:22 | Observation (INO) | payer MEDICAID, SELFPAY ==
[2017-07-07] VITALS (14 sets, daily range): BP systolic 153–215; BP diastolic 78–99; PULSE 79–119; RESP 14–22; TEMP 36.4–36.6; O2SAT 94–98; BMI 32.2; BMI 31.9
--- NOTE | 2017-07-07 10:35 | EKG12_ITS ---
Test Reason : CP Blood Pressure : / mmHG Vent. Rate : 099 BPM Atrial Rate : 099 BPM P-R Int : 158 ms QRS Dur : 088 ms QT Int : 366 ms P-R-T Axes : 039 -28 122 degrees QTc Int : 469 ms Normal sinus rhythm Left ventricular hypertrophy with repolarization abnormality Abnormal ECG Confirmed by CHLOÉ DOMINGUEZ, AL ([id number]), market editor MALIK HULL ([id number]) on 07/09/2017 3:38:32 PM Referred By: RONAK/BATOOL Confirmed By:AL LUEVANO MD
--- NOTE | 2017-07-07 10:40 | RAD_ITS ---
STUDY: X-RAY CHEST REASON FOR EXAM: Female, 56 years old. Chest pain TECHNIQUE: Single AP portable view of the chest. COMPARISON: 06/02/2017 FINDINGS: The lungs are clear and expanded. There is no demonstrated pleural abnormality. Sternal cerclage wires and vascular clips are present from a prior sternotomy and coronary artery bypass graft procedure (CABG). Normal mediastinum and marie. Normal visualized pulmonary arteries. Normal visualized aortic arch and descending thoracic aorta. Normal visualized thoracic spine. There is degenerative osteoarthritis of the bilateral shoulders. There is no demonstrated abnormality of the visualized soft tissue structures of the upper abdomen. RAD/Chest 1 View (Portable) IMPRESSION: Degenerative changes, as described above. No demonstrated acute cardiopulmonary process. Electronically Signed: Cris Mckee MD at 11:08 EDT Tel , Service support ,
[2017-07-07 10:54] LABS: Absolute Lymphocyte Count 1.48 X10^3/ul (0.83-4.51); Basophil# 0.03 X10^3/uL; Basophil% 0.5 % (0-1); Eosinophil# 0.28 X10^3/uL; Eosinophils% 4.6 % (0-5); Hematocrit 42.1 % (37-47); Hemoglobin 13.7 g/dl (12.0-15.0); Lymphocyte # 1.48 X10^3/ul (4.0); Lymphocyte % 24.4 % (19-41); Mean Corp Hgb Conc 32.5 g/gl (32-36); Mean Corpuscular Hgb 28.7 pg (27.0-32.0); Mean Corpuscular Volume 88.3 fL (81-99); Mean Platelet Vol. 12.3 fl (6.2-12.0); Monocyte# 0.27 X10^3/uL; Monocyte% 4.5 % (0-10); Neutrophil # 3.96 X10^3/uL (2.7-7.7); Neutrophil % 65.3 % (47-70); POSITIVE COUNT NO; POSITIVE DIFFERENTIAL NO; POSITIVE MORPHOLOGY NO; Platelet Count 147 K/mm3 (150-450); RBC Distribution Width CV 14.6 % (11.6-14.6); RBC Distribution Width SD 46.9 fl (35.1-43.9); Red Blood Count 4.77 M/mm3 (4.2-5.4); White Blood Count 6.1 K/mm3 (4.4-11.0)
[2017-07-07 10:56] LABS: International Normalized Ratio 0.9; Prothrombin Time (Protime)PT. 12.2 SECONDS (11.7-14.9)
--- NOTE | 2017-07-07 10:57 | CT_ITS ---
STUDY: CT BRAIN WITHOUT CONTRAST REASON FOR EXAM: Female, 56 years old. HEADACHE/CHEST PAIN TODAY HX-MIGRAINES,CABG X4,HEART STENTS X9,HTN,DIAB,COPD RADIATION DOSAGE (If Supplied By Facility): CTDIvol = ( 44.99 ) mGy, DLP = ( 779.24 ) mGycm TECHNIQUE: Transaxial CT imaging of the brain was performed without administration of intravenous contrast material. Individualized dose optimization techniques were used for this CT. COMPARISON: None. FINDINGS: Normal soft tissue structures. Prior antral mastoidectomy on the right side. Normal size ventricles and extra-axial spaces for the patient's age. There are areas of decreased attenuation within the white matter tracts of the supratentorial brain, consistent with microvascular disease changes. Normal basal ganglia and thalami. Normal brainstem. Normal cerebellum. There is no intracranial hemorrhage. There are no findings of an acute ischemic infarction. Normal visualized paranasal sinuses. CT/Brain/Head without Contrast IMPRESSION: Chronic involutional changes of the brain. Electronically Signed: Cris Mckee MD at 12:05 EDT Tel , Service support ,
[2017-07-07 11:06] LABS: Anion Gap 9 (5-15); BUN 26 mg/dL (7-18); BUN/Creat Ratio 20.5 RATIO (10-20); Calcium,Total 9.8 mg/dL (8.5-10.1); Chloride 103 mmol/L (98-107); Creatinine, Serum 1.27 mg/dL (0.55-1.02); EST Glomerular Filtration Rate 46 mL/min (>60); Est Glom Filt Rate - Afr Amer 55 mL/min (>60); Estimated Creatinine Clearance 46.95 ml/min; Glucose 274 mg/dL (74-106); Sodium Level 138 mmol/L (136-145)
[2017-07-07] MEDS: Ondansetron 4 MG/2 ML Vial IV (11:17)
[2017-07-07] MEDS: Morphine 4 MG/ML Syringe IV (11:18)
--- NOTE | 2017-07-07 11:46 | ED.RN ---
PCP OFFICE UNABLE TO FAX MEDICATION LIST VERIFIED OVER THE PHONE
--- NOTE | 2017-07-07 12:22 | EKG12_ITS ---
Test Reason : REPEAT Blood Pressure : / mmHG Vent. Rate : 107 BPM Atrial Rate : 107 BPM P-R Int : 160 ms QRS Dur : 084 ms QT Int : 362 ms P-R-T Axes : 057 -28 116 degrees QTc Int : 483 ms Sinus tachycardia Left ventricular hypertrophy with repolarization abnormality Abnormal ECG Confirmed by CHLOÉ DOMINGUEZ, AL ([id number]), news video editor MALIK HULL ([id number]) on 07/09/2017 3:38:54 PM Referred By: RONAK/BATOOL Confirmed By:AL LUEVANO MD
--- NOTE | 2017-07-07 12:22 | CT_ITS ---
STUDY: CTA CHEST REASON FOR EXAM: Female, 56 years old. CHEST PAIN RADIATION DOSAGE (If Supplied By Facility): CTDIvol = ( 14.84 ) mGy, DLP = ( 615.03 ) mGycm TECHNIQUE: The examination was performed with the intravenous administration of 100 ml of Isovue 370 contrast material. Post-processing of the angiographic images was performed, with multiplanar reformation and 3D reconstruction. Individualized dose optimization techniques were used for this CT. COMPARISON: None. FINDINGS: There is a nonspecific nodule in the right thyroid lobe measures 1.4 cm. Normal enhancement of the main pulmonary artery and right and left pulmonary arteries. Normal enhancement of the bilateral peripheral pulmonary arteries. There is no demonstrated pulmonary embolism. Normal thoracic aorta and visualized great vessels. There is no demonstrated aortic dissection. Normal heart and pericardium. Normal mediastinum. Normal hilar regions. Normal visualized trachea and bronchi. The lungs are well expanded. Normal pulmonary parenchyma. Normal pleura. Normal chest wall structures. There are degenerative changes of thoracic spine. Normal visualized upper abdomen. CT/CTA Chest W/WO Contrast IMPRESSION: No demonstrated pulmonary embolism or arterial dissection. There is a nonspecific nodule in the right thyroid lobe measures 1.4 cm. Electronically Signed: Cris Mckee MD at 13:27 EDT Tel , Service support ,
[2017-07-07] MEDS: proCHLORPERazine 10 MG/2 ML Vial IV (13:20)
[2017-07-07] MEDS: Ketorolac 30 MG/ML Syringe IV (13:20)
[2017-07-07] MEDS: DiphenhydrAMINE 50 MG/ML Syringe IV (13:20)
[2017-07-07] MEDS: Metoprolol Tartrate 5 MG/5 ML Vial IV (15:02)
--- NOTE | 2017-07-07 15:20 | PCM.HP.STD ---
Problem List (1) Multiple falls Status: Chronic (2) Shortness of breath Status: Chronic (3) Abdominal pain Status: Chronic (4) Ileostomy status Status: Chronic (5) Surgical wound dehiscence Status: Chronic Qualifiers: (6) CAD (coronary artery disease) Status: Chronic (7) Hyperlipidemia Status: Chronic Qualifiers: Comment: Continues on statin without side effect. Reports taking as directed. No recent labs noted. (8) Acute pancreatitis Status: Resolved (9) Diarrhea Status: Chronic (10) Anemia of chronic renal failure, stage 3 (moderate) Status: Chronic (11) Obstructive sleep apnea Status: Chronic (12) Gastroparesis Status: Suspected (13) Psoriasis Status: Chronic (14) Heart failure with preserved ejection fraction Status: Chronic (15) Benign essential HTN Status: Chronic (16) Depression Status: Chronic Qualifiers: (17) DM2 (diabetes mellitus, type 2) Status: Chronic Qualifiers: (18) FCHL (familial combined hyperlipidemia) Status: Chronic (19) Ulcerative colitis Status: Chronic Comment: Status post ileostomy (20) Hx of coronary artery disease Status: Chronic Comment: Status post CABG, failed, status post multiple stents. (21) Pulmonary hypertension Status: Chronic (22) History of coronary artery stent placement Status: Chronic Comment: Mid LAD and Cx 2012, D1 and prox OM1 2012, Prox SVG, Distal SVG to the Mid OM 2012 (23) S/P CABG (coronary artery bypass graft) Status: Chronic Comment: JONES to LAD, SVG diag, SVG to OM, SVG to left PDA (24) Chronic respiratory failure Status: Chronic (25) COPD (chronic obstructive pulmonary disease) Status: Chronic History of Present Illness Date of Admission: 07/07/17 Chief Complaint: Chest pain today The patient is a 56 year old F with multiple comorbidities as listed above 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 Her chest pain is midsternal, aggravated by deep inspiration, radiates to left arm and neck, persistent is little better after medication in ER. Patient also said she has mild shortness of breath, diaphoresis along with chest pain but denies dizziness, near syncope or syncope. Initial workup in the ER is negative. EKG shows sinus tachycardia at [address]-T changes. She had nuclear stress test in March 2016 which was negative for myocardial ischemia. In ER, her first troponin was -0.04 and then second little elevated, 0.08. ER physician Dr. Palacios discussed with Dr. stone and he advised cycle cardiac enzymes and rule out acute coronary syndrome. [] Past Medical History Past Medical History (Chronic Problems): Chronic Problems (Last Reviewed 07/02/17 @ 13:05 by Jory Ruiz) Multiple falls (Chronic) Shortness of breath (Chronic) Abdominal pain (Chronic) Ileostomy status (Chronic) Surgical wound dehiscence (Chronic) CAD (coronary artery disease) (Chronic) Hyperlipidemia (Chronic) Continues on statin without side effect. Reports taking as directed. No recent labs noted. Diarrhea (Chronic) Anemia of chronic renal failure, stage 3 (moderate) (Chronic) Obstructive sleep apnea (Chronic) Psoriasis (Chronic) Heart failure with preserved ejection fraction (Chronic) Benign essential HTN (Chronic) Depression (Chronic) DM2 (diabetes mellitus, type 2) (Chronic) FCHL (familial combined hyperlipidemia) (Chronic) Ulcerative colitis (Chronic) Status post ileostomy Hx of coronary artery disease (Chronic) Status post CABG, failed, status post multiple stents. Pulmonary hypertension (Chronic) History of coronary artery stent placement (Chronic ~2012) Mid LAD and Cx 2012, D1 and prox OM1 2012, Prox SVG, Distal SVG to the Mid OM 2012 S/P CABG (coronary artery bypass graft) (Chronic ~2012) JONES to LAD, SVG diag, SVG to OM, SVG to left PDA Chronic respiratory failure (Chronic) COPD (chronic obstructive pulmonary disease) (Chronic) Allergies cinnamon [Cinnamon] Allergy (Verified 07/07/17 10:32) Anaphylaxis Influenza Virus Vaccines Allergy (Verified 07/07/17 10:32) Shortness of breath liraglutide [From Victoza] Allergy (Verified 07/07/17 10:32) Anaphylaxis metronidazole [From Flagyl] Allergy (Verified 07/07/17 10:32) Hives Metronidazole HCl [From Flagyl] Allergy (Verified 07/07/17 10:32) Hives Penicillins Allergy (Verified 07/07/17 10:32) Hives Sulfa (Sulfonamide Antibiotics) Allergy (Verified 07/07/17 10:32) Hives ciprofloxacin [From Cipro] Adverse Reaction (Verified 07/07/17 10:32) Nausea codeine Adverse Reaction (Verified 07/07/17 10:32) Stops Ileostomy dicyclomine HCl [From Bentyl] Adverse Reaction (Verified 07/07/17 10:32) Nausea metformin HCl [From Glucophage] Adverse Reaction (Verified 07/07/17 10:32) Nausea Higgpgt-Qbh-Vhm Reductase Inhibitor Adverse Reaction (Verified 07/07/17 10:32) Nausea/joints ache Home Medications: Ambulatory Orders Medication Instructions Recorded Aspirin [Aspirin, Baby] 81 mg PO DAILY@0800 01/21/15 Atorvastatin Calcium [Lipitor] 80 mg PO QHS 01/21/15 Clopidogrel Bisulfate [Plavix] 75 mg PO DAILY 01/21/15 Magnesium Oxide [Mag-Ox 400] 400 mg PO BID 01/21/15 Metoprolol Tartrate [Lopressor 75 mg PO TID 01/21/15 (beta esha)] Isosorbide DN [Isordil] 30 mg PO TID 09/03/16 Ondansetron HCl [Zofran] 4 mg PO Q8H PRN PRN #20 tab 09/05/16 Baclofen 10 mg PO QHS 11/24/16 Calcium Carbonate [Calcium] 600 mg PO BID 11/24/16 Cholecalciferol (Vitamin D3) 2,000 unit PO DAILY 11/24/16 [Vitamin D3] loperamide 2 mg tablet 2 mg PO .qid PRN tab 02/12/17 omeprazole 20 mg capsule,delayed 20 mg PO DAILY 02/12/17 release triamcinolone acetonide 0.1 % 1 applic TOPICAL BID 02/12/17 topical cream albuterol sulfate HFA 90 1 puff INHALATION Q6H PRN #1 inh 03/10/17 mcg/actuation aerosol inhaler insulin aspart U-100 100 unit/mL See Label Instructions SC TID ml 03/23/17 subcutaneous pen miconazole nitrate 2 % topical 1 applic TOPICAL QDAY 03/23/17 powder tramadol 50 mg tablet 50 mg PO BID tab 05/05/17 Hydrocortisone 1 applic TOPICAL BID 06/02/17 fenofibrate micronized 200 mg 200 mg PO QDAY 06/08/17 capsule furosemide 40 mg tablet 40 mg PO QDAY #90 tab 06/08/17 nitroglycerin 0.4 mg sublingual 0.4 mg SUBLINGUAL Q5M PRN #25 tab 06/08/17 tablet pregabalin 50 mg capsule 50 mg PO BID cap 06/08/17 insulin glargine (U-100) 100 70 unit SC BID ml 06/11/17 unit/mL (3 mL) subcutaneous pen lorazepam 0.5 mg tablet 0.5 mg PO QHS PRN #30 tab 06/11/17 Cephalexin [Cephalexin] 500 mg PO BID 06/29/17 Doxycycline Hyclate 100 mg PO BID 06/29/17 Duloxetine Hcl [Cymbalta] 20 mg PO BID 06/29/17 buprenorphine 5 mcg/hour weekly 1 patch TRANSDERMAL QWEEK 07/02/17 transdermal patch Surgical History: angioplasty, coronary bypass surgery, - - Complete colectomy for ulcerative colitis 30 years ago. Patient had her ileostomy transitioned over from her right to her left. Smoking Status: Former smoker - *Family History Maternal History Items: Heart Disease, - - No autoimmune disease that she is aware of Paternal History Items: Cancer - Father has H/o lymphoma, - - No autoimmune disease that she is aware of Review of Systems Constitutional: Denies: Chills, Fever, Weight Change HEENT: Denies: Head Aches, Sinus Congestion, Sinus Drainage Cardiovascular: Reports: Chest Pressure. Denies: Chest Pain, Palpitations Respiratory: Denies: Cough, Shortness of breath at rest, Sputum production Gastrointestinal: Denies: Abdominal Pain, Nausea, Vomiting Genitourinary: Denies: Dysuria Musculoskeletal: Reports: Joint Pain, Leg Pain, Muscle pain. Denies: Joint Tenderness Skin: Reports: Rash. Denies: Wounds Neurological: Denies: Numbness, Tingling, Focal weakness Psychiatric: Reports: Anxiety. Denies: Depression, Homicidal Ideations, Suicidal Ideations Hematologic/ Lymphatic: Denies: Easy Bruising, Easy Bleeding VTE Information - Inpt Only VTE Present on Admission: No VTE Mechan Device Prophylaxis: SCD's VTE Pharm Prophylaxis ordered?: Yes - Physical Exam General: Alert, Oriented x3, Cooperative HEENT: Atraumatic, PERRLA, EOMI, Normocephalic Neck: Supple, No JVD, Negative Carotid Bruits Lungs: Diminished, Rhonchi, Wheezes Cardiovascular: Regular rate, Regular Rhythm, Normal S1, Normal S2, No murmurs, Tachycardic Abdomen: Bowel Sounds Present, Soft, Non Tender Extremities: No edema, Capillary Refill Less than 3 Seconds Skin: Rash Present - Psoriatic rash present on the elbow. 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 Her chest pain is midsternal, aggravated by deep inspiration, radiates to left arm and neck, persistent is little better after medication in ER. Patient also said she has mild shortness of breath, diaphoresis along with chest pain but denies dizziness, near syncope or syncope. Initial workup in the ER is negative. EKG shows sinus tachycardia at [address]-T changes. She had nuclear stress test in March 2016 which was negative for myocardial ischemia. In ER, her first troponin was -0.04 and then second little elevated, 0.08. ER physician Dr. Palacios discussed with Dr. stone and he advised cycle cardiac enzymes and rule out acute coronary syndrome. 1. Atypical chest pain; seems probably pleuritic rule out acute coronary syndrome: Patient is being admitted in PCU. Cycle cardiac enzymes. Continue her cardiac medications aspirin, Plavix, Isordil 30 mg 3 times daily, metoprolol and nitro sublingual as needed. 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 Stone and if cardiac enzymes are negative, can discharge tomorrow and no need for cardiology consult. 2. Coronary artery disease status post four-vessel CABG in 90 stents with chronic diastolic heart failure: As mentioned above. Had cardiac cath in 2015 which shows normal left main, mid LAD totally occluded, first diagonal mild to moderate disease left circumflex mild disease but third large obtuse marginal with moderately severe disease and totally occluded with saphenous vein graft supplying this vessel. Echo in April 2015 shows EF 65%. Mild MR. Unable to estimate RV systolic pressure because of suboptimal study and body habitus. 3. Diabetes S type II with uncontrolled hyperglycemia: On a scheduled NovoLog insulin and Levemir twice daily . Accu-Chek before meals and at bedtime and cover with sliding scale insulin if needed. 4. Multiple comorbidities including hypertension, ulcerative colitis status post ileostomy, pulmonary hypertension, COPD, dyslipidemia, psoriasis: She uses hydrocortisone cream on face and triamcinolone on elbow. Home medication reconciliation done. DVT prophylaxis: On Lovenox 40 mg subcu daily and bilateral SCDs Laboratory Results 07/07/17 10:40: WBC 6.1, RBC 4.77, Hgb 13.7, Hct 42.1, MCV 88.3, MCH 28.7, MCHC 32.5, RDW 14.6, RDW Differential 46.9 H, Plt Count 147 L, MPV 12.3 H, Immature Gran % (Auto) 0.700, Neut % (Auto) 65.3, Lymph % (Auto) 24.4, Price % (Auto) 4.5, Eos % (Auto) 4.6, Baso % (Auto) 0.5, Absolute Neuts (auto) 4.0, Absolute Lymphs (auto) 1.48, Total Counted Not Reportable 07/07/17 10:40: PT 12.2, INR 0.9 07/07/17 10:40: Sodium 138, Potassium 4.0, Chloride 103, Carbon Dioxide 26.0, Anion Gap 9, BUN 26 H, Creatinine 1.27 H, Estim Creat Clear Calc 46.95, Est GFR (MDRD) Af Amer 55 L, Est GFR (MDRD) Non-Af 46 L, BUN/Creatinine Ratio 20.5 H, Glucose 274 H, Calcium 9.8, Troponin I 0.04 07/07/17 13:38: Troponin I 0.08 H Clinical Impression(s) from Imaging Studies Chest X-Ray 07/07/17 10:40 IMPRESSION: Degenerative changes, as described above. No demonstrated acute cardiopulmonary process. Electronically Signed: Cris Mckee MD at 11:08 EDT Tel , Service support , Brain CT 07/07/17 10:57 IMPRESSION: Chronic involutional changes of the brain. Electronically Signed: Cris Mckee MD at 12:05 EDT Tel , Service support , Chest CTA 07/07/17 12:22 IMPRESSION: No demonstrated pulmonary embolism or arterial dissection. There is a nonspecific nodule in the right thyroid lobe measures 1.4 cm. \ Code Visit OBSV E&M: 11990 Initial observation care L3
--- NOTE | 2017-07-07 15:36 | HP.PCM_ITS ---
Problem List (1) Multiple falls Status: Chronic (2) Shortness of breath Status: Chronic (3) Abdominal pain Status: Chronic (4) Ileostomy status Status: Chronic (5) Surgical wound dehiscence Status: Chronic Qualifiers: (6) CAD (coronary artery disease) Status: Chronic (7) Hyperlipidemia Status: Chronic Qualifiers: Comment: Continues on statin without side effect. Reports taking as directed. No recent labs noted. (8) Acute pancreatitis Status: Resolved (9) Diarrhea Status: Chronic (10) Anemia of chronic renal failure, stage 3 (moderate) Status: Chronic (11) Obstructive sleep apnea Status: Chronic (12) Gastroparesis Status: Suspected (13) Psoriasis Status: Chronic (14) Heart failure with preserved ejection fraction Status: Chronic (15) Benign essential HTN Status: Chronic (16) Depression Status: Chronic Qualifiers: (17) DM2 (diabetes mellitus, type 2) Status: Chronic Qualifiers: (18) FCHL (familial combined hyperlipidemia) Status: Chronic (19) Ulcerative colitis Status: Chronic Comment: Status post ileostomy (20) Hx of coronary artery disease Status: Chronic Comment: Status post CABG, failed, status post multiple stents. (21) Pulmonary hypertension Status: Chronic (22) History of coronary artery stent placement Status: Chronic Comment: Mid LAD and Cx 2012, D1 and prox OM1 2012, Prox SVG, Distal SVG to the Mid OM 2012 (23) S/P CABG (coronary artery bypass graft) Status: Chronic Comment: JONES to LAD, SVG diag, SVG to OM, SVG to left PDA (24) Chronic respiratory failure Status: Chronic (25) COPD (chronic obstructive pulmonary disease) Status: Chronic History of Present Illness Date of Admission: 07/07/17 Chief Complaint: Chest pain today The patient is a 56 year old F with multiple comorbidities as listed above came to ER with chest pain category consultant at 5 AM that woke her up. Her chest pain is midsternal, aggravated by deep inspiration, radiates to left arm and neck, persistent is little better after medication in ER. Patient also said she has mild shortness of breath, diaphoresis along with chest pain but denies dizziness , near syncope or syncope. Initial workup in the ER is negative. EKG shows sinus tachycardia at [address]-T changes. She had nuclear stress test in March 2016 which was negative for myocardial ischemia. In ER, her first troponin was -0.04 and then second little elevated, 0.08. ER physician Dr. Palacios discussed with Dr. stone and he advised cycle cardiac enzymes and rule out acute coronary syndrome. [] Past Medical History Past Medical History (Chronic Problems): Chronic Problems (Last Reviewed 07/02/17 @ 13:05 by Jory Ruiz) Multiple falls (Chronic) Shortness of breath (Chronic) Abdominal pain (Chronic) Ileostomy status (Chronic) Surgical wound dehiscence (Chronic) CAD (coronary artery disease) (Chronic) Hyperlipidemia (Chronic) Continues on statin without side effect. Reports taking as directed. No recent labs noted. Diarrhea (Chronic) Anemia of chronic renal failure, stage 3 (moderate) (Chronic) Obstructive sleep apnea (Chronic) Psoriasis (Chronic) Heart failure with preserved ejection fraction (Chronic) Benign essential HTN (Chronic) Depression (Chronic) DM2 (diabetes mellitus, type 2) (Chronic) FCHL (familial combined hyperlipidemia) (Chronic) Ulcerative colitis (Chronic) Status post ileostomy Hx of coronary artery disease (Chronic) Status post CABG, failed, status post multiple stents. Pulmonary hypertension (Chronic) History of coronary artery stent placement (Chronic ~2012) Mid LAD and Cx 2012, D1 and prox OM1 2012, Prox SVG, Distal SVG to the Mid OM 2012 S/P CABG (coronary artery bypass graft) (Chronic ~2012) JONES to LAD, SVG diag, SVG to OM, SVG to left PDA Chronic respiratory failure (Chronic) COPD (chronic obstructive pulmonary disease) (Chronic) Allergies cinnamon [Cinnamon] Allergy (Verified 07/07/17 10:32) Anaphylaxis Influenza Virus Vaccines Allergy (Verified 07/07/17 10:32) Shortness of breath liraglutide [From Victoza] Allergy (Verified 07/07/17 10:32) Anaphylaxis metronidazole [From Flagyl] Allergy (Verified 07/07/17 10:32) Hives Metronidazole HCl [From Flagyl] Allergy (Verified 07/07/17 10:32) Hives Penicillins Allergy (Verified 07/07/17 10:32) Hives Sulfa (Sulfonamide Antibiotics) Allergy (Verified 07/07/17 10:32) Hives ciprofloxacin [From Cipro] Adverse Reaction (Verified 07/07/17 10:32) Nausea codeine Adverse Reaction (Verified 07/07/17 10:32) Stops Ileostomy dicyclomine HCl [From Bentyl] Adverse Reaction (Verified 07/07/17 10:32) Nausea metformin HCl [From Glucophage] Adverse Reaction (Verified 07/07/17 10:32) Nausea Lkljtwy-Eog-Mgw Reductase Inhibitor Adverse Reaction (Verified 07/07/17 10:32) Nausea/joints ache Home Medications: Ambulatory Orders Medication Instructions Recorded Aspirin [Aspirin, Baby] 81 mg PO DAILY@0800 01/21/15 Atorvastatin Calcium [Lipitor] 80 mg PO QHS 01/21/15 Clopidogrel Bisulfate [Plavix] 75 mg PO DAILY 01/21/15 Magnesium Oxide [Mag-Ox 400] 400 mg PO BID 01/21/15 Metoprolol Tartrate [Lopressor 75 mg PO TID 01/21/15 (beta esha)] Isosorbide DN [Isordil] 30 mg PO TID 09/03/16 Ondansetron HCl [Zofran] 4 mg PO Q8H PRN PRN #20 tab 09/05/16 Baclofen 10 mg PO QHS 11/24/16 Calcium Carbonate [Calcium] 600 mg PO BID 11/24/16 Cholecalciferol (Vitamin D3) 2,000 unit PO DAILY 11/24/16 [Vitamin D3] loperamide 2 mg tablet 2 mg PO .qid PRN tab 02/12/17 omeprazole 20 mg capsule,delayed 20 mg PO DAILY 02/12/17 release triamcinolone acetonide 0.1 % 1 applic TOPICAL BID 02/12/17 topical cream albuterol sulfate HFA 90 1 puff INHALATION Q6H PRN #1 inh 03/10/17 mcg/actuation aerosol inhaler insulin aspart U-100 100 unit/mL See Label Instructions SC TID ml 03/23/17 subcutaneous pen miconazole nitrate 2 % topical 1 applic TOPICAL QDAY 03/23/17 powder tramadol 50 mg tablet 50 mg PO BID tab 05/05/17 Hydrocortisone 1 applic TOPICAL BID 06/02/17 fenofibrate micronized 200 mg 200 mg PO QDAY 06/08/17 capsule furosemide 40 mg tablet 40 mg PO QDAY #90 tab 06/08/17 nitroglycerin 0.4 mg sublingual 0.4 mg SUBLINGUAL Q5M PRN #25 tab 06/08/17 tablet pregabalin 50 mg capsule 50 mg PO BID cap 06/08/17 insulin glargine (U-100) 100 70 unit SC BID ml 06/11/17 unit/mL (3 mL) subcutaneous pen lorazepam 0.5 mg tablet 0.5 mg PO QHS PRN #30 tab 06/11/17 Cephalexin [Cephalexin] 500 mg PO BID 06/29/17 Doxycycline Hyclate 100 mg PO BID 06/29/17 Duloxetine Hcl [Cymbalta] 20 mg PO BID 06/29/17 buprenorphine 5 mcg/hour weekly 1 patch TRANSDERMAL QWEEK 07/02/17 transdermal patch Surgical History: angioplasty, coronary bypass surgery, - - Complete colectomy for ulcerative colitis 30 years ago. Patient had her ileostomy transitioned over from her right to her left. Smoking Status: Former smoker - *Family History Maternal History Items: Heart Disease, - - No autoimmune disease that she is aware of Paternal History Items: Cancer - Father has H/o lymphoma, - - No autoimmune disease that she is aware of Review of Systems Constitutional: Denies: Chills, Fever, Weight Change HEENT: Denies: Head Aches, Sinus Congestion, Sinus Drainage Cardiovascular: Reports: Chest Pressure. Denies: Chest Pain, Palpitations Respiratory: Denies: Cough, Shortness of breath at rest, Sputum production Gastrointestinal: Denies: Abdominal Pain, Nausea, Vomiting Genitourinary: Denies: Dysuria Musculoskeletal: Reports: Joint Pain, Leg Pain, Muscle pain. Denies: Joint Tenderness Skin: Reports: Rash. Denies: Wounds Neurological: Denies: Numbness, Tingling, Focal weakness Psychiatric: Reports: Anxiety. Denies: Depression, Homicidal Ideations, Suicidal Ideations Hematologic/ Lymphatic: Denies: Easy Bruising, Easy Bleeding VTE Information - Inpt Only VTE Present on Admission: No VTE Mechan Device Prophylaxis: SCD's VTE Pharm Prophylaxis ordered?: Yes - Physical Exam General: Alert, Oriented x3, Cooperative HEENT: Atraumatic, PERRLA, EOMI, Normocephalic Neck: Supple, No JVD, Negative Carotid Bruits Lungs: Diminished, Rhonchi, Wheezes Cardiovascular: Regular rate, Regular Rhythm, Normal S1, Normal S2, No murmurs, Tachycardic Abdomen: Bowel Sounds Present, Soft, Non Tender Extremities: No edema, Capillary Refill Less than 3 Seconds Skin: Rash Present - Psoriatic rash present on the elbow. Musculoskeletal: No Tenderness to Palpation of Joints or Extremities Neurological: Cranial nerves II-XII grossly intact Psych/Mental Status: Normal Affect, Appropriate Vital Signs Temp Pulse Resp BP Pulse Ox 97.6 F L 119 H 18 153/88 H 97 07/07/17 10:23 07/07/17 15:00 07/07/17 15:00 07/07/17 15:00 07/07/17 15:00 Oxygen Flow Rate (L/min) 2 Oxygen Delivery Method Nasal Cannula Assessment/Plan The patient is a 56 year old F with multiple comorbidities as listed above came to ER with chest pain category consultant at 5 AM that woke her up. Her chest pain is midsternal, aggravated by deep inspiration, radiates to left arm and neck, persistent is little better after medication in ER. Patient also said she has mild shortness of breath, diaphoresis along with chest pain but denies dizziness , near syncope or syncope. Initial workup in the ER is negative. EKG shows sinus tachycardia at [address]-T changes. She had nuclear stress test in March 2016 which was negative for myocardial ischemia. In ER, her first troponin was -0.04 and then second little elevated, 0.08. ER physician Dr. Palacios discussed with Dr. stone and he advised cycle cardiac enzymes and rule out acute coronary syndrome. 1. Atypical chest pain; seems probably pleuritic rule out acute coronary syndrome: Patient is being admitted in PCU. Cycle cardiac enzymes. Continue her cardiac medications aspirin, Plavix, Isordil 30 mg 3 times daily, metoprolol and nitro sublingual as needed. Discussed with disposal operator Dr. Stone and if cardiac enzymes are negative, can discharge tomorrow and no need for cardiology consult. 2. Coronary artery disease status post four-vessel CABG in 90 stents with chronic diastolic heart failure: As mentioned above. Had cardiac cath in 2015 which shows normal left main, mid LAD totally occluded, first diagonal mild to moderate disease left circumflex mild disease but third large obtuse marginal with moderately severe disease and totally occluded with saphenous vein graft supplying this vessel. Echo in April 2015 shows EF 65%. Mild MR. Unable to estimate RV systolic pressure because of suboptimal study and body habitus. 3. Diabetes S type II with uncontrolled hyperglycemia: On a scheduled NovoLog insulin and Levemir twice daily . Accu-Chek before meals and at bedtime and cover with sliding scale insulin if needed. 4. Multiple comorbidities including hypertension, ulcerative colitis status post ileostomy, pulmonary hypertension, COPD, dyslipidemia, psoriasis: She uses hydrocortisone cream on face and triamcinolone on elbow. Home medication reconciliation done. DVT prophylaxis: On Lovenox 40 mg subcu daily and bilateral SCDs Laboratory Results 07/07/17 10:40: WBC 6.1, RBC 4.77, Hgb 13.7, Hct 42.1, MCV 88.3, MCH 28.7, MCHC 32.5, RDW 14.6, RDW Differential 46.9 H, Plt Count 147 L, MPV 12.3 H, Immature Gran % (Auto) 0.700, Neut % (Auto) 65.3, Lymph % (Auto) 24.4, [place] % (Auto) 4.5 , Eos % (Auto) 4.6, Baso % (Auto) 0.5, Absolute Neuts (auto) 4.0, Absolute Lymphs (auto) 1.48, Total Counted Not Reportable 07/07/17 10:40: PT 12.2, INR 0.9 07/07/17 10:40: Sodium 138, Potassium 4.0, Chloride 103, Carbon Dioxide 26.0, Anion Gap 9, BUN 26 H, Creatinine 1.27 H, Estim Creat Clear Calc 46.95, Est GFR (MDRD) Af Amer 55 L, Est GFR (MDRD) Non-Af 46 L, BUN/Creatinine Ratio 20.5 H, Glucose 274 H, Calcium 9.8, Troponin I 0.04 07/07/17 13:38: Troponin I 0.08 H Clinical Impression(s) from Imaging Studies Chest X-Ray 07/07/17 10:40 IMPRESSION: Degenerative changes, as described above. No demonstrated acute cardiopulmonary process. Electronically Signed: Cris Mckee MD at 11:08 EDT Tel , Service support , Brain CT 07/07/17 10:57 IMPRESSION: Chronic involutional changes of the brain. Electronically Signed: Cris Mckee MD at 12:05 EDT Tel , Service support , Chest CTA 07/07/17 12:22 IMPRESSION: No demonstrated pulmonary embolism or arterial dissection. There is a nonspecific nodule in the right thyroid lobe measures 1.4 cm. \ Code Visit OBSV E&M: 48033 Initial observation care L3
--- NOTE | 2017-07-07 15:39 | ED.VISSUMM ---
- ER Visit Summary Date of Service: 07/07/17 Chief Complaint: Chest pain and headache History of Present Illness: The patient is a [address] Menon and Dr. Mcgrath. She reports that she has chest pain that began at 5:00 this morning. Sick continuous crushing pain that is 9 out of 10 at worst and 7 out of 10 currently. Is worsened by exertion relieved by remaining still. She has had nausea. No vomiting, diaphoresis, or shortness of breath. Patient reports that she also has a headache that began this morning at 5 AM as well. States that it is gradually increased. To squeezing pain that is 8 out of 10. This increased with light. Nothing makes this better. She denies any numbness or weakness. No change in her vision. No recent injury. Physical Examination: Vitals: 215/99, 102, 14, 96% on room air which is not hypoxic. Afebrile. General: Well-nourished and well-developed. Head: Normocephalic atraumatic. Neck: Supple, no lymphadenopathy. No JVD. Nontender. Cardiovascular: Regular rate and rhythm. No murmurs. Respiratory: No respiratory distress. Clear to auscultation bilaterally. Abdominal: Soft, nontender, nondistended, normal bowel sounds. No guarding, rebound, or peritoneal signs. Back: Nontender. Extremities: Nontender, no edema. Skin: Normal color, no rash. Neurologic: Alert and oriented ?3. Cranial nerves II through XII are intact. Normal strength and sensation. Psych: Normal affect. Test Results: EKG is sinus at 99 with LVH and repolarization changes. It is unchanged from last month. Repeat EKG is unchanged. CBC is marked for platelets 147. Chem-7 is more for BUN of 26, creatinine 1.27, glucose of 274. Initial troponin 0 0.04. Two-hour troponin is 0.08. CT chest shows a nodule right thyroid lobe that is 1.4 cm. No dissection or PE. CT brain shows chronic changes. Emergency Department Course and Treatment: Patient was initially treated with aspirin, morphine, and Zofran. She continued to complain of a headache. She was given Benadryl, Toradol, Compazine IV. Her heart rate elevated into the 1 teens and she was given Lopressor IV. Treatment Plan: Her pain is very atypical. I do not think that this is cardiac in etiology. However, with her troponin increasing from 0.04-0.08 she was discussed with Dr. Menon. She will be admitted to the hospital for further evaluation and treatment. Disposition: Admitted in stable condition. Impression: 1. Atypical chest pain. 2. JAMAAL score of 3. 3. Cephalgia. This note was generated with [employer] dictation software. It may contain incorrect words, spelling, and punctuation that were not noted in review of the chart prior to signing ED Disposition - Plan for ED Patient: Chief Complaint: Chest Pain
[2017-07-07] MEDS: Clopidogrel Bisulfate 75 MG Tablet PO (17:06)
[2017-07-07] MEDS: Aspirin 81 MG TAB.CHEW PO (17:06)
[2017-07-07] MEDS: Glucerna Shake 120 ML LIQUID PO ×2 (17:10→21:06)
[2017-07-07 17:11] LABS: Bedside Glucose 138 mg/dL (70-110)
[2017-07-07] MEDS: Magnesium Oxide 400 MG Tablet PO (17:11)
[2017-07-07] MEDS: Enoxaparin 40 MG/0.4 ML Syringe SC (17:11)
[2017-07-07] MEDS: traMADol 50 MG Tablet PO (21:06)
[2017-07-07] MEDS: Atorvastatin Calcium 80 MG Tablet PO (21:06)
[2017-07-07] MEDS: DULoxetine Hcl 20 MG Capsule PO (21:06)
[2017-07-07] MEDS: Isosorbide DN 30 MG Tablet PO (21:06)
[2017-07-07] MEDS: Metoprolol Tartrate 25 MG Tablet 75 MG PO (21:06)
[2017-07-07] MEDS: Baclofen 10 MG Tablet PO (21:06)
[2017-07-07] MEDS: Pregabalin 50 MG Capsule PO (21:06)
[2017-07-07 21:56] LABS: Bedside Glucose 313 mg/dL (70-110)
[2017-07-08] VITALS (7 sets, daily range): BP systolic 105–147; BP diastolic 48–76; PULSE 69–95; RESP 16; TEMP 36.5–36.7; O2SAT 93–95
[2017-07-08] MEDS: Morphine 2 MG/ML Syringe IV (00:36)
[2017-07-08] MEDS: 0.9% NaCl Peripheral Flush Adult/Peds IV (00:36)
--- NOTE | 2017-07-08 05:29 | EKG12_ITS ---
Test Reason : AM EKG Blood Pressure : / mmHG Vent. Rate : 065 BPM Atrial Rate : 065 BPM P-R Int : 160 ms QRS Dur : 092 ms QT Int : 416 ms P-R-T Axes : 009 -17 149 degrees QTc Int : 432 ms Normal sinus rhythm Left ventricular hypertrophy with repolarization abnormality Abnormal ECG When compared with ECG of 07-JUL-2017 12:31, MANUAL COMPARISON REQUIRED, DATA IS UNCONFIRMED Confirmed by CHLOÉ DOMINGUEZ, AL ([id number]), telegraph editor MALIK HULL ([id number]) on 07/12/2017 2:34:38 PM Referred By: DR PIMENTEL Confirmed By:AL LUEVANO MD
[2017-07-08] MEDS: Clopidogrel Bisulfate 75 MG Tablet PO (05:50)
[2017-07-08] MEDS: Aspirin 81 MG TAB.CHEW PO (05:50)
[2017-07-08 06:02] LABS: Anion Gap 7 (5-15); BUN 27 mg/dL (7-18); BUN/Creat Ratio 22.5 RATIO (10-20); Calcium,Total 9.6 mg/dL (8.5-10.1); Chloride 105 mmol/L (98-107); Cholesterol 239 mg/dL (200); EST Glomerular Filtration Rate 49 mL/min (>60); Est Glom Filt Rate - Afr Amer 59 mL/min (>60); Estimated Creatinine Clearance 49.69 ml/min; Glucose 160 mg/dL (74-106); High Density Lipoprotein 38 mg/dL; Potassium 4.5 mmol/L (3.5-5.1); Sodium Level 142 mmol/L (136-145); Thyroid Stim Hormone (TSH) 1.02 uIU/mL (0.358-3.74); Triglycerides 752 mg/dL
[2017-07-08 06:10] LABS: Bedside Glucose 136 mg/dL (70-110)
[2017-07-08 06:43] LABS: International Normalized Ratio 0.9; Prothrombin Time (Protime)PT. 12.5 SECONDS (11.7-14.9)
[2017-07-08 06:44] LABS: Partial Thromboplast Time 27.4 Seconds (24.1-36.2)
[2017-07-08 06:55] LABS: Absolute Lymphocyte Count 1.84 X10^3/ul (0.83-4.51); Absolute Neutrophil Count 3.8 X10^3/uL (2.0-7.7); Basophil# 0.05 X10^3/uL; Basophil% 0.8 % (0-1); Eosinophil# 0.39 X10^3/uL; Hematocrit 39.2 % (37-47); Hemoglobin 12.3 g/dl (12.0-15.0); Lymphocyte # 1.84 X10^3/ul (4.0); Lymphocyte % 28.5 % (19-41); Mean Corp Hgb Conc 31.4 g/gl (32-36); Mean Corpuscular Hgb 28.3 pg (27.0-32.0); Mean Corpuscular Volume 90.1 fL (81-99); Mean Platelet Vol. 12.3 fl (6.2-12.0); Monocyte# 0.32 X10^3/uL; Neutrophil % 58.9 % (47-70); Platelet Count 149 K/mm3 (150-450); RBC Distribution Width CV 14.8 % (11.6-14.6); RBC Distribution Width SD 49.1 fl (35.1-43.9); Red Blood Count 4.35 M/mm3 (4.2-5.4); White Blood Count 6.5 K/mm3 (4.4-11.0)
[2017-07-08 06:56] LABS: POSITIVE COUNT NO; POSITIVE DIFFERENTIAL NO; POSITIVE MORPHOLOGY NO
[2017-07-08] MEDS: Magnesium Oxide 400 MG Tablet PO (09:17)
[2017-07-08] MEDS: Fenofibrate 145 MG Tablet PO (09:17)
[2017-07-08] MEDS: DULoxetine Hcl 20 MG Capsule PO (09:18)
[2017-07-08] MEDS: Furosemide 40 MG Tablet PO (09:18)
[2017-07-08] MEDS: Pantoprazole Sodium 20 MG Tablet PO (09:19)
[2017-07-08] MEDS: Pregabalin 50 MG Capsule PO (09:27)
--- NOTE | 2017-07-08 09:54 | STRESSREP ---
Stress Test Report Date: The 2017 Procedure: Pharmacologic stress nuclear imaging study Indications: Chest pain Consent: Per the patient Procedure: The patient underwent pharmacologic (Regadenoson) evaluation with a peak heart rate of 85 beats per minute (50 predicted maximal heart rate) and a peak blood pressure of 140/72 mmHg. The baseline ECG demonstrated normal sinus rhythm with nonspecific ST/T-wave abnormality. The peak pharmacologic ECG demonstrated ECG changes. There were no cardiac dysrhythmias pretest, during pharmacologic infusion, or recovery. There was no complaint of chest discomfort during pharmacologic infusion or recovery. The examination was discontinued secondary to completion of protocol. Impression: 1. Pharmacologic (Regadenoson) evaluation 2. Peak pharmacologic ECG with no obvious ECG changes. 3. Cardiac dysrhythmias pretest, during pharmacologic infusion, or recovery 4. Nuclear images pending Myocardial perfusion imaging study: Technique: The patient was injected with 11.7 millicuries of technetium 99m Cardiolite and subsequently rest SPECT Cardiolite nuclear imaging was obtained in the horizontal long, vertical long, and short axis views. The patient underwent pharmacologic (Regadenoson) evaluation with a peak heart rate of 85 beats per minute (50 % percent predicted maximal heart rate) and a peak blood pressure of 140/72 mmHg. The patient was injected with 33.8 millicuries of technetium 99m Cardiolite and subsequently stress SPECT Cardiolite nuclear imaging was obtained in the horizontal long, vertical long, and short axis views. A gated Cardiolite study at peak stress was obtained. Interpretation: Rest and stress SPECT Cardiolite nuclear imaging status post realignment, normalization, and attenuation correction demonstrate relative uniform tracer uptake and myocardial perfusion appearing within normal limits. There is end systolic thickening and brightening. The gated Cardiolite study demonstrates myocardial thickening and inward wall motion. The reported LVEF is 68 %. Impression: 1. Rest and stress SPECT Cardiolite nuclear imaging demonstrate relative uniform tracer uptake and myocardial perfusion appearing within normal limits. 2. The gated Cardiolite study reports an LVEF of 68 %. This note was generated with [employer] software. It may contain incorrect words, spelling, and punctuation that were not noted in checking the note before signing.
[2017-07-08 11:36] LABS: Bedside Glucose 207 mg/dL (70-110)
--- NOTE | 2017-07-08 12:41 | PCM.DC ---
You will use the following diet at home:: Regular Discharge Activity: Return to Normal Activity Allergies/Adverse Reactions: Allergies cinnamon [Cinnamon] Allergy (Verified 07/07/17 10:32) Anaphylaxis Influenza Virus Vaccines Allergy (Verified 07/07/17 10:32) Shortness of breath liraglutide [From Victoza] Allergy (Verified 07/07/17 10:32) Anaphylaxis metronidazole [From Flagyl] Allergy (Verified 07/07/17 10:32) Hives Metronidazole HCl [From Flagyl] Allergy (Verified 07/07/17 10:32) Hives Penicillins Allergy (Verified 07/07/17 10:32) Hives Sulfa (Sulfonamide Antibiotics) Allergy (Verified 07/07/17 10:32) Hives ciprofloxacin [From Cipro] Adverse Reaction (Verified 07/07/17 10:32) Nausea codeine Adverse Reaction (Verified 07/07/17 10:32) Stops Ileostomy dicyclomine HCl [From Bentyl] Adverse Reaction (Verified 07/07/17 10:32) Nausea metformin HCl [From Glucophage] Adverse Reaction (Verified 07/07/17 10:32) Nausea Hmehjjb-Rdj-Nox Reductase Inhibitor Adverse Reaction (Verified 07/07/17 10:32) Nausea/joints ache Medications to take at Discharge Aspirin [Aspirin, Baby] 81 mg PO DAILY@0800 01/21/15 Atorvastatin Calcium [Lipitor] 80 mg PO QHS 01/21/15 Clopidogrel Bisulfate [Plavix] 75 mg PO DAILY 01/21/15 Magnesium Oxide [Mag-Ox 400] 400 mg PO BID 01/21/15 Metoprolol Tartrate [Lopressor (beta esha)] 75 mg PO TID 01/21/15 Isosorbide DN [Isordil] 30 mg PO TID 09/03/16 Ondansetron HCl [Zofran] 4 mg PO Q8H PRN PRN #20 tab 09/05/16 Baclofen 10 mg PO QHS 11/24/16 Calcium Carbonate [Calcium] 600 mg PO BID 11/24/16 Cholecalciferol (Vitamin D3) [Vitamin D3] 2,000 unit PO DAILY 11/24/16 loperamide 2 mg tablet 2 mg PO 4X/DAY PRN PRN tab 02/12/17 omeprazole 20 mg capsule,delayed release 20 mg PO DAILY 02/12/17 triamcinolone acetonide 0.1 % topical cream 1 applic TOPICAL BID PRN PRN 02/12/17 albuterol sulfate HFA 90 mcg/actuation aerosol inhaler 1 puff INHALATION Q6H PRN #1 inh 03/10/17 insulin aspart U-100 100 unit/mL subcutaneous pen 25 - 35 units SC TIDCM ml 03/23/17 miconazole nitrate 2 % topical powder 1 applic TOPICAL DAILY 03/23/17 tramadol 50 mg tablet 50 mg PO BID PRN PRN tab 05/05/17 Hydrocortisone 1 applic TOPICAL BID 06/02/17 nitroglycerin 0.4 mg sublingual tablet 0.4 mg SUBLINGUAL Q5M PRN #25 tab 06/08/17 pregabalin 50 mg capsule 50 mg PO BID cap 06/08/17 insulin glargine (U-100) 100 unit/mL (3 mL) subcutaneous pen 70 unit SC BID ml 06/11/17 lorazepam 0.5 mg tablet 0.5 mg PO QHS PRN #30 tab 06/11/17 Duloxetine Hcl [Cymbalta] 20 mg PO BID 06/29/17 buprenorphine 5 mcg/hour weekly transdermal patch 1 patch TRANSDERMAL QWEEK 07/02/17 Furosemide [Lasix] 40 mg PO DAILY 07/07/17 Primary Care Physician: Mala Mcgrath MD [Primary Care Provider] - In 1 Week
--- NOTE | 2017-07-08 12:42 | PCM.DC.SUM ---
Discharge Date and Diagnosis Date of Admission: 07/07/17 Date of Discharge: 07/08/17 - Secondary Discharge Diagnosis Chronic Problems (Last Reviewed 07/02/17 @ 13:05 by Jory Ruiz) Multiple falls (Chronic) Shortness of breath (Chronic) Abdominal pain (Chronic) Ileostomy status (Chronic) Surgical wound dehiscence (Chronic) CAD (coronary artery disease) (Chronic) Hyperlipidemia (Chronic) Continues on statin without side effect. Reports taking as directed. No recent labs noted. Diarrhea (Chronic) Anemia of chronic renal failure, stage 3 (moderate) (Chronic) Obstructive sleep apnea (Chronic) Psoriasis (Chronic) Heart failure with preserved ejection fraction (Chronic) Benign essential HTN (Chronic) Depression (Chronic) DM2 (diabetes mellitus, type 2) (Chronic) FCHL (familial combined hyperlipidemia) (Chronic) Ulcerative colitis (Chronic) Status post ileostomy Hx of coronary artery disease (Chronic) Status post CABG, failed, status post multiple stents. Pulmonary hypertension (Chronic) History of coronary artery stent placement (Chronic ~2012) Mid LAD and Cx 2012, D1 and prox OM1 2012, Prox SVG, Distal SVG to the Mid OM 2012 S/P CABG (coronary artery bypass graft) (Chronic ~2012) JONES to LAD, SVG diag, SVG to OM, SVG to left PDA Chronic respiratory failure (Chronic) COPD (chronic obstructive pulmonary disease) (Chronic) Hospital Course and Treatment Imaging Results: 07/08/17 05:55 Nuclear Stress Test - Chemical [NM] AM (NON MEDS) Consultations 07/07/17 16:46 Consult: Onc/Wound/instructor knitting Routine Comment: Operations: None Summary of Care Provided: The patient is a 56 year old F with multiple comorbidities as listed above 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 She was discharged home in a stable condition symptom-free. Physical exam at time of discharge; vital signs were stable. He was alert and oriented to time place and person. He did not appear to be any form of distress. S1 and S2 heard no murmur or gallop Lung exam was clear to auscultation with no adventitious sounds. Abdomen was soft nontender with normal bowel sounds. extremity exam did not reveal any edema, palpable pulses bilaterally. Neurologic exam was grossly intact. Discharge Diet: No Restrictions Discharge Activity: Return to Normal Activity Home Medications: Medications to take at Discharge Aspirin [Aspirin, Baby] 81 mg PO DAILY@0800 01/21/15 Atorvastatin Calcium [Lipitor] 80 mg PO QHS 01/21/15 Clopidogrel Bisulfate [Plavix] 75 mg PO DAILY 01/21/15 Magnesium Oxide [Mag-Ox 400] 400 mg PO BID 01/21/15 Metoprolol Tartrate [Lopressor (beta esha)] 75 mg PO TID 01/21/15 Isosorbide DN [Isordil] 30 mg PO TID 09/03/16 Ondansetron HCl [Zofran] 4 mg PO Q8H PRN PRN #20 tab 09/05/16 Baclofen 10 mg PO QHS 11/24/16 Calcium Carbonate [Calcium] 600 mg PO BID 11/24/16 Cholecalciferol (Vitamin D3) [Vitamin D3] 2,000 unit PO DAILY 11/24/16 loperamide 2 mg tablet 2 mg PO 4X/DAY PRN PRN tab 02/12/17 omeprazole 20 mg capsule,delayed release 20 mg PO DAILY 02/12/17 triamcinolone acetonide 0.1 % topical cream 1 applic TOPICAL BID PRN PRN 02/12/17 albuterol sulfate HFA 90 mcg/actuation aerosol inhaler 1 puff INHALATION Q6H PRN #1 inh 03/10/17 insulin aspart U-100 100 unit/mL subcutaneous pen 25 - 35 units SC TIDCM ml 03/23/17 miconazole nitrate 2 % topical powder 1 applic TOPICAL DAILY 03/23/17 tramadol 50 mg tablet 50 mg PO BID PRN PRN tab 05/05/17 Hydrocortisone 1 applic TOPICAL BID 06/02/17 nitroglycerin 0.4 mg sublingual tablet 0.4 mg SUBLINGUAL Q5M PRN #25 tab 06/08/17 pregabalin 50 mg capsule 50 mg PO BID cap 06/08/17 insulin glargine (U-100) 100 unit/mL (3 mL) subcutaneous pen 70 unit SC BID ml 06/11/17 lorazepam 0.5 mg tablet 0.5 mg PO QHS PRN #30 tab 06/11/17 Duloxetine Hcl [Cymbalta] 20 mg PO BID 06/29/17 buprenorphine 5 mcg/hour weekly transdermal patch 1 patch TRANSDERMAL QWEEK 07/02/17 Furosemide [Lasix] 40 mg PO DAILY 07/07/17 Primary Care Physician: Mala Mcgrath MD [Primary Care Provider] - In 1 Week Medical Necessity - Tobacco Use Smoking Status: Heavy Smoker (>10/day) Tobacco Use: Cigarettes Meaningful Use Info Meaningful Use Diagnoses (Choose all that apply): None applicable Code Visit OBSV E&M: 40499 Observation care discharge
--- NOTE | 2017-07-08 13:55 | NURSING ---
wound photo: right abdomen
== END 2017-07-08 12:41 | disposition home or self-care (01) ==
LOC: ED 13:23 → PCU 14:47
PROVIDERS: Admitting Provider Internal Medicine; Emergency Provider Emergency Medicine; Family Provider Internal Medicine; PCP Internal Medicine; Visit Provider Internal Medicine
DX: R07.89 Other chest pain (principal); R51 Headache; I25.10 Atherosclerotic heart disease of native coronary artery without angina pectoris; G47.33 Obstructive sleep apnea (adult) (pediatric); I13.0 Hypertensive heart and chronic kidney disease with heart failure and stage 1 through stage 4 chronic kidney disease, or unspecified chronic kidney disease; E11.22 Type 2 diabetes mellitus with diabetic chronic kidney disease; N18.3 Chronic kidney disease, stage 3 (moderate); N17.9 Acute kidney failure, unspecified; I50.32 Chronic diastolic (congestive) heart failure; L40.9 Psoriasis, unspecified; D63.1 Anemia in chronic kidney disease; J96.10 Chronic respiratory failure, unspecified whether with hypoxia or hypercapnia; J44.9 Chronic obstructive pulmonary disease, unspecified; I27.20 Pulmonary hypertension, unspecified; E78.4 Other hyperlipidemia; F32.9 Major depressive disorder, single episode, unspecified; Z95.1 Presence of aortocoronary bypass graft; Z93.2 Ileostomy status; Z79.4 Long term (current) use of insulin; Z79.899 Other long term (current) drug therapy; Z79.02 Long term (current) use of antithrombotics/antiplatelets; Z79.82 Long term (current) use of aspirin; F17.210 Nicotine dependence, cigarettes, uncomplicated
CPT/HCPCS: 36415; 70450; 71045; 71275; 78452; 80048; 80061; 82962; 84443; 84484; 85025; 85610; 85730; 93005; 93017; 96372; 96374; 96375; 96376; 97802; 99218; 99285; A9500; Q9967; A4216; G0378; J2405; J2785

== ENCOUNTER → 2017-07-12 09:24 | Outpatient (CLI) | payer MEDICAID, SELFPAY ==
[2017-07-12 10:38] LABS: Microalbumin:Creatinine Ratio 67.6 mg/g CRE (<30 mg/g CRE)
[2017-07-12 10:48] LABS: Cholesterol 200 mg/dL (200); Hemoglobin A1c 9.4 % (4.2-6.3); High Density Lipoprotein 47 mg/dL; Triglycerides 506 mg/dL
== END ==
PROVIDERS: Nurse Practitioner; Family Provider Internal Medicine; PCP Internal Medicine; Visit Provider Internal Medicine
DX: I10 Essential (primary) hypertension (principal); E11.9 Type 2 diabetes mellitus without complications
CPT/HCPCS: 36415; 80061; 82043; 82570; 83036

== ENCOUNTER → 2017-07-19 12:05 | Outpatient (CLI) | payer MEDICAID, SELFPAY ==
[2017-07-19 12:44] VITALS: PULSE 81; PULSE 82; PULSE 90; PULSE 91; PULSE 92; PULSE 94; PULSE 97; PULSE 98; O2SAT 92; O2SAT 93; O2SAT 96
--- NOTE | 2017-07-20 05:33 | WT_ITS ---
PSN 6 Minute Walk Test - 6 Minute Walk Test 6 Minute Walk Test: 6 Minute Walk Test PSN:6-Minute Walk Test Start: 07/19/17 12: 43 Freq: Status: Active Protocol: [id number] Document 07/19/17 12:44 YVETTE (Rec: 07/19/17 12:48 YVETTE [id number]) 6 Minute Walk Test Date Performed 07/19/17 Time Performed 12:30 Height 5 ft 7 in Weight: 92.986 kg Weight in Pounds 205.[address]: Davide Baca Assistive device used: None Pre-test Oxygen Delivery Method Room Air Pulse Ox (%) 93 Pulse Rate (60-100 beats/min) 81 Dyspnea Melissa Scale (0-10) 1 Exertion Melissa Scale (6-20) 6 1st minute Oxygen Delivery Method Room Air Pulse Ox (%) 92 Pulse Rate (60-100 beats/min) 90 2nd minute Oxygen Delivery Method Room Air Pulse Ox (%) 92 Pulse Rate (60-100 beats/min) 91 3rd minute Oxygen Delivery Method Room Air Pulse Ox (%) 93 Pulse Rate (60-100 beats/min) 97 4th minute Oxygen Delivery Method Room Air Pulse Ox (%) 92 Pulse Rate (60-100 beats/min) 98 5th minute Oxygen Delivery Method Room Air Pulse Ox (%) 92 Pulse Rate (60-100 beats/min) 92 6th minute Oxygen Delivery Method Room Air Pulse Ox (%) 92 Pulse Rate (60-100 beats/min) 94 Dyspnea Melissa Scale (0-10) 3 Exertion Melissa Scale (6-20) 13 Reported Symptoms Dizziness Post-test Oxygen Delivery Method Room Air Pulse Ox (%) 96 Pulse Rate (60-100 beats/min) 82 Full Laps Walked 17 Partial Lap, Number of Tiles Walked 26 Total Distance Walked (ft) 1029 - Interpretation Interpretation: The patient was able to ambulate 1029 feet over the course of 6 minutes on room air with no assistive devices or breaks. The patient did not have any significant tachycardia or desaturation during testing, but did report dizziness at the end of testing. Baseline oxygen saturation was decreased at 93 %. These findings are consistent with a respiratory limitation exercise tolerance. - Recommendations Recommendations: No supplemental oxygen is indicated at this time. However, this will need to be followed closely given patient's decreased baseline saturations.
== END ==
PROVIDERS: Family Provider Internal Medicine; PCP Internal Medicine; Visit Provider Internal Medicine Critical Care Medicine
DX: J44.9 Chronic obstructive pulmonary disease, unspecified (principal)
CPT/HCPCS: 94618

== ENCOUNTER 2017-08-04 11:30 | Outpatient (RCR) | payer MEDICAID, SELFPAY ==
[2017-07-06 00:35] VITALS: BP 135/80; PULSE 69; RESP 18; TEMP 36.2; BMI 31.0
[2017-07-07 09:55] VITALS: BP 200/93; PULSE 98; RESP 16; TEMP 36.4; BMI 31.0
--- NOTE | 2017-07-07 10:11 | WC ---
PT C/O CHEST PAIN AND MIGRAINE UPON ARRIVAL TO ROOM. STATES THE SX STARTED EARLY THIS AM AROUND 5:30. HAS PRN NITRO AT HOME, BUT DID NOT USE. STATES THE PAIN IN HER CHEST IS RADIATING TO HER LEFT ARM. VITALS OBTAINED. BP INITIALLY 200/93 RT ARM AND PULSE 98 PER MONITOR. RECHK BP APPROX 10 MINS LATER 163/87 W/ PULSE OF 87. DR MADRIGAL NOTIFIED. EVAL'D IN ROOM. RECOMMENDED PT GO TO ED FOR EVAL AND TX. PT AGREEABLE.
[2017-07-15 10:02] VITALS: BP 158/79; PULSE 78; RESP 18; TEMP 35.6; BMI 31.0
--- NOTE | 2017-07-15 16:05 | PCM.WC.PN ---
(1) Abdominal pain Status: Chronic Current Visit: Yes Code(s): R10.9 - Unspecified abdominal pain (2) DM2 (diabetes mellitus, type 2) Status: Chronic Current Visit: Yes Qualifiers: Code(s): E11.9 - Type 2 diabetes mellitus without complications (3) Surgical wound dehiscence Status: Chronic Current Visit: Yes Qualifiers: Code(s): T81.31XA - Disruption of external operation (surgical) wound, not elsewhere classified, initial encounter Type of Wound Date of Service: 07/15/17 Chief Complaint: Right sided abdominal wound. History of Wound: Ms. Artis is a 56yo with an extensive past medical history who presented here on referral by her general surgeon. She was referred to general surgeon after she presented to her PCP with an opening of her 10 year surgical scar. This was said to be sudden in onset without any known precipitating factor. There has been no discharge from the site and no increased tenderness around the area either. She had been cleaning with hydrogen peroxide and dressing with gauze as recommended by her surgeon. She has a history of prior surgical wound dehiscence and these were as a result of undissolved sutures. She feels well otherwise. As stated earlier she denies any discharge from the wound site. She also denies chills, fever or otherwise feeling of unwell. Progress of Wound: Stable. Per patient, investigation done at [facility] not suggestive of an enterocutanous fistula. - Physical Exam Vital Signs Temp Pulse Resp BP 96.0 F L 78 18 158/79 H 07/15/17 10:02 07/15/17 10:02 07/15/17 10:02 07/15/17 10:02 General: Alert, Oriented x3, Cooperative, No apparent distress HEENT: Atraumatic, Normocephalic Oral: Moist Mucosa Neck: Supple Lungs: Normal air movement Cardiovascular: Regular rate Abdomen: Soft, Obese Extremities: No cyanosis, No edema Skin: Ulcer/ Wound Wound Measurements and Assessment WC - Nurse 1 - General Ulcer Measurement Start: 07/07/17 09:55 Freq: Status: Active Protocol: Activity Type Activity Date Activity User E-Sign Co-Sign Detail Recorded Client Recorded Date Recorded By Document 07/15/17 10:02 BRENDA [id number] 07/15/17 10:15 BRENDA 07/15/17 10:02 Wound Center Nurse 1 [Ulcer Assessment] 1. RLQ -Combined with other wound No -Current Size (cm) - Length 0.3 -Current Size (cm) - Width 0.7 -Current Size (cm) - Depth 4.0 -Total Square Cm 0.21 -Date of Last Picture (Recall this 06/17/17 field) -Photo Taken No -Epithelialization None Present -Tunneling No -Undermining/Tunneling No -Circular Undermining No -Classification - Thickness Full Thickness without Exposed Support Structure -Exudate Amt Medium (34-66%) -Exudate Type Serosanguineous -Wound Margin Distinct, Outline Attached -Granulation Amt None Present (0 %) -Granulation Quality N/A -Slough/Fibrin No -Necrosis Amt None Present (0 %) -Necrotic Tissue Type Adherent Slough -Structure Exposed N/A -Texture (Fay-wound Skin Appearance) No Abnormality -Moisture (Fay-wound Skin Appearance No Abnormality ) -Color (Fay-wound Skin Appearance) No Abnormality -Temperature (Fay-wound Skin No Abnormality Appearance) (Pt Warm) -Tenderness on Palpation (Fay-wound Yes Skin Appearance) -Ulcer Cleansing Rinsed/ Irrigated with Saline -Foul Odor after Cleansing No -Anesthetic Used 4% Lidocaine Solution WC - Nurse 2 - General Ulcer CM Notes Start: 07/07/17 09:55 Freq: Status: Active Protocol: Activity Type Activity Date Activity User E-Sign Co-Sign Detail Recorded Client Recorded Date Recorded By Document 07/15/17 11:20 DV [id number] 07/15/17 11:24 DV 07/15/17 11:20 Wound Center Nurse 2 [Procedure/Treatment] -Time 11:21 -Correct Patient Yes -Correct Side, Site, Position Yes -Correct Procedure Yes -Procedure Performed Yes -Type of Procedure Debridement -Clinical Debridement Subcutaneous -Post Debridement Size (cm) - Length 0.3 -Post Debridement Size (cm) - Width 0.7 -Post Debridement Size (cm) - Depth 3.8 -Total Square Cm 0.21 -Wound/Ulcer Outcome Not Healed -Ulcer Cleansing Rinsed/ Irrigated with Saline -Foul Odor after Cleansing No -Bioengineered Tissue No -Bleeding Controlled with NA -Treatment Response Procedure Tolerated Well [See Physician Procedure note for Specifics] Pain Scale: 0-10 Numeric [Pain] -Is Patient Pain Free? Yes Musculoskeletal: No Muscle Wasting Neurological: Cranial nerves II-XII grossly intact Psych/Mental Status: Normal Affect Debridement Note Post-Debridement Measurements/Treatment WC - Nurse 2 - General Ulcer CM Notes Start: 07/07/17 09:55 Freq: Status: Active Protocol: Activity Type Activity Date Activity User E-Sign Co-Sign Detail Recorded Client Recorded Date Recorded By Document 07/15/17 11:20 DV [id number] 07/15/17 11:24 DV 07/15/17 11:20 Wound Center Nurse 2 1. RLQ -Time 11:21 -Correct Patient Yes -Correct Side, Site, Position Yes -Correct Procedure Yes -Procedure Performed Yes -Type of Procedure Debridement -Clinical Debridement Subcutaneous -Post Debridement Size (cm) - Length 0.3 -Post Debridement Size (cm) - Width 0.7 -Post Debridement Size (cm) - Depth 3.8 -Total Square Cm 0.21 -Wound/Ulcer Outcome Not Healed -Ulcer Cleansing Rinsed/ Irrigated with Saline -Foul Odor after Cleansing No -Bioengineered Tissue No -Bleeding Controlled with NA -Treatment Response Procedure Tolerated Well Pain Scale: 0-10 Numeric Is Patient Pain Free? Yes Wound debrided: Righr sided abdominal wound Wound Grade/Stage: Stage II Type of Debridement: Excisional debridement Anesthesia Used: 4% Lidocaine Solution Depth: Down to and including healthy tissue, in the subcutaneous layer Percentage of wound debrided: 100 Instrument Used: 3mm curette Tissue Removed: Slough and devitalized tissue Severity: Fat Layer Exposed Amount of bleeding with debridement: Mild Bleeding Controlled with: Pressure Patient tolerated procedure well Assessment/Plan Active Problems (Last Reviewed 07/02/17 @ 13:05 by Jory Ruiz) Abdominal pain (Chronic) Surgical wound dehiscence (Chronic) DM2 (diabetes mellitus, type 2) (Chronic) Assessment: Abdominal wound dehiscence of a 10 year surgical scar. Diabetes mellitus type 2 poorly controlled. Ulcerative Colitis. Plan: Wound has stayed stable. Per patient imaging done at the [facility] not suggestive of a EC fistula. yet to follow up with surgeon for next step. Debridement done as documented above. Procedure was well-tolerated. Continue aquacel daily to wound with Adaptic over top. Continue increased protein intake/supplements. Continue optimal blood sugar control. Follow-up in 1 week. This note was generated with [employer] software. It may contain incorrect words, spelling, and punctuation that were not noted in checking the note before signing.
--- NOTE | 2017-07-15 16:12 | PN.PCM_ITS ---
(1) Abdominal pain Status: Chronic Current Visit: Yes Code(s): R10.9 - Unspecified abdominal pain (2) DM2 (diabetes mellitus, type 2) Status: Chronic Current Visit: Yes Qualifiers: Code(s): E11.9 - Type 2 diabetes mellitus without complications (3) Surgical wound dehiscence Status: Chronic Current Visit: Yes Qualifiers: Code(s): T81.31XA - Disruption of external operation (surgical) wound, not elsewhere classified, initial encounter Type of Wound Date of Service: 07/15/17 Chief Complaint: Right sided abdominal wound. History of Wound: Ms. Artis is a 56yo with an extensive past medical history who presented here on referral by her general surgeon. She was referred to general surgeon after she presented to her PCP with an opening of her 10 year surgical scar. This was said to be sudden in onset without any known precipitating factor. There has been no discharge from the site and no increased tenderness around the area either. She had been cleaning with hydrogen peroxide and dressing with gauze as recommended by her surgeon. She has a history of prior surgical wound dehiscence and these were as a result of undissolved sutures. She feels well otherwise. As stated earlier she denies any discharge from the wound site. She also denies chills, fever or otherwise feeling of unwell. Progress of Wound: Stable. Per patient, investigation done at [facility] not suggestive of an enterocutanous fistula. - Physical Exam Vital Signs Temp Pulse Resp BP 96.0 F L 78 18 158/79 H 07/15/17 10:02 07/15/17 10:02 07/15/17 10:02 07/15/17 10:02 General: Alert, Oriented x3, Cooperative, No apparent distress HEENT: Atraumatic, Normocephalic Oral: Moist Mucosa Neck: Supple Lungs: Normal air movement Cardiovascular: Regular rate Abdomen: Soft, Obese Extremities: No cyanosis, No edema Skin: Ulcer/ Wound Wound Measurements and Assessment WC - Nurse 1 - General Ulcer Measurement Start: 07/07/17 09:55 Freq: Status: Active Protocol: Activity Type Activity Date Activity User E-Sign Co-Sign Detail Recorded Client Recorded Date Recorded By Document 07/15/17 10:02 BRENDA [id number] 07/15/17 10:15 BRENDA 07/15/17 10:02 Wound Center Nurse 1 [Ulcer Assessment] 1. RLQ -Combined with other wound No -Current Size (cm) - Length 0.3 -Current Size (cm) - Width 0.7 -Current Size (cm) - Depth 4.0 -Total Square Cm 0.21 -Date of Last Picture (Recall this 06/17/17 field) -Photo Taken No -Epithelialization None Present -Tunneling No -Undermining/Tunneling No -Circular Undermining No -Classification - Thickness Full Thickness without Exposed Support Structure -Exudate Amt Medium (34-66%) -Exudate Type Serosanguineous -Wound Margin Distinct, Outline Attached -Granulation Amt None Present (0 %) -Granulation Quality N/A -Slough/Fibrin No -Necrosis Amt None Present (0 %) -Necrotic Tissue Type Adherent Slough -Structure Exposed N/A -Texture (Fay-wound Skin Appearance) No Abnormality -Moisture (Fay-wound Skin Appearance No Abnormality ) -Color (Fay-wound Skin Appearance) No Abnormality -Temperature (Fay-wound Skin No Abnormality Appearance) (Pt Warm) -Tenderness on Palpation (Fay-wound Yes Skin Appearance) -Ulcer Cleansing Rinsed/ Irrigated with Saline -Foul Odor after Cleansing No -Anesthetic Used 4% Lidocaine Solution WC - Nurse 2 - General Ulcer CM Notes Start: 07/07/17 09:55 Freq: Status: Active Protocol: Activity Type Activity Date Activity User E-Sign Co-Sign Detail Recorded Client Recorded Date Recorded By Document 07/15/17 11:20 DV [id number] 07/15/17 11:24 DV 07/15/17 11:20 Wound Center Nurse 2 [Procedure/Treatment] -Time 11:21 -Correct Patient Yes -Correct Side, Site, Position Yes -Correct Procedure Yes -Procedure Performed Yes -Type of Procedure Debridement -Clinical Debridement Subcutaneous -Post Debridement Size (cm) - Length 0.3 -Post Debridement Size (cm) - Width 0.7 -Post Debridement Size (cm) - Depth 3.8 -Total Square Cm 0.21 -Wound/Ulcer Outcome Not Healed -Ulcer Cleansing Rinsed/ Irrigated with Saline -Foul Odor after Cleansing No -Bioengineered Tissue No -Bleeding Controlled with NA -Treatment Response Procedure Tolerated Well [See Physician Procedure note for Specifics] Pain Scale: 0-10 Numeric [Pain] -Is Patient Pain Free? Yes Musculoskeletal: No Muscle Wasting Neurological: Cranial nerves II-XII grossly intact Psych/Mental Status: Normal Affect Debridement Note Post-Debridement Measurements/Treatment WC - Nurse 2 - General Ulcer CM Notes Start: 07/07/17 09:55 Freq: Status: Active Protocol: Activity Type Activity Date Activity User E-Sign Co-Sign Detail Recorded Client Recorded Date Recorded By Document 07/15/17 11:20 DV [id number] 07/15/17 11:24 DV 07/15/17 11:20 Wound Center Nurse 2 1. RLQ -Time 11:21 -Correct Patient Yes -Correct Side, Site, Position Yes -Correct Procedure Yes -Procedure Performed Yes -Type of Procedure Debridement -Clinical Debridement Subcutaneous -Post Debridement Size (cm) - Length 0.3 -Post Debridement Size (cm) - Width 0.7 -Post Debridement Size (cm) - Depth 3.8 -Total Square Cm 0.21 -Wound/Ulcer Outcome Not Healed -Ulcer Cleansing Rinsed/ Irrigated with Saline -Foul Odor after Cleansing No -Bioengineered Tissue No -Bleeding Controlled with NA -Treatment Response Procedure Tolerated Well Pain Scale: 0-10 Numeric Is Patient Pain Free? Yes Wound debrided: Righr sided abdominal wound Wound Grade/Stage: Stage II Type of Debridement: Excisional debridement Anesthesia Used: 4% Lidocaine Solution Depth: Down to and including healthy tissue, in the subcutaneous layer Percentage of wound debrided: 100 Instrument Used: 3mm curette Tissue Removed: Slough and devitalized tissue Severity: Fat Layer Exposed Amount of bleeding with debridement: Mild Bleeding Controlled with: Pressure Patient tolerated procedure well Assessment/Plan Active Problems (Last Reviewed 07/02/17 @ 13:05 by Jory Ruiz) Abdominal pain (Chronic) Surgical wound dehiscence (Chronic) DM2 (diabetes mellitus, type 2) (Chronic) Assessment: Abdominal wound dehiscence of a 10 year surgical scar. Diabetes mellitus type 2 poorly controlled. Ulcerative Colitis. Plan: Wound has stayed stable. Per patient imaging done at the [facility] not suggestive of a EC fistula. yet to follow up with surgeon for next step. Debridement done as documented above. Procedure was well-tolerated. Continue aquacel daily to wound with Adaptic over top. Continue increased protein intake /supplements. Continue optimal blood sugar control. Follow-up in 1 week. This note was generated with [employer] software. It may contain incorrect words, spelling, and punctuation that were not noted in checking the note before signing.
[2017-07-21 10:36] VITALS: BP 167/90; PULSE 80; RESP 16; TEMP 36.2; BMI 31.0
--- NOTE | 2017-07-21 11:58 | PCM.WC.PN ---
(1) Abdominal pain Status: Chronic Current Visit: Yes Code(s): R10.9 - Unspecified abdominal pain (2) DM2 (diabetes mellitus, type 2) Status: Chronic Current Visit: Yes Qualifiers: Code(s): E11.9 - Type 2 diabetes mellitus without complications (3) Surgical wound dehiscence Status: Chronic Current Visit: Yes Qualifiers: Code(s): T81.31XA - Disruption of external operation (surgical) wound, not elsewhere classified, initial encounter Type of Wound Date of Service: 07/21/17 Chief Complaint: Right sided abdominal wound. History of Wound: Ms. Artis is a 56yo with an extensive past medical history who presented here on referral by her general surgeon. She was referred to general surgeon after she presented to her PCP with an opening of her 10 year surgical scar. This was said to be sudden in onset without any known precipitating factor. There has been no discharge from the site and no increased tenderness around the area either. She had been cleaning with hydrogen peroxide and dressing with gauze as recommended by her surgeon. She has a history of prior surgical wound dehiscence and these were as a result of undissolved sutures. She feels well otherwise. As stated earlier she denies any discharge from the wound site. She also denies chills, fever or otherwise feeling of unwell. Progress of Wound: Stable. - Physical Exam Vital Signs Temp Pulse Resp BP 97.1 F L 80 16 167/90 H 07/21/17 10:36 07/21/17 10:36 07/21/17 10:36 07/21/17 10:36 General: Alert, Oriented x3, Cooperative, No apparent distress HEENT: Atraumatic, Normocephalic Oral: Moist Mucosa Neck: Supple Lungs: Normal air movement Cardiovascular: Regular rate Abdomen: Soft, Obese Extremities: No cyanosis Skin: Ulcer/ Wound Wound Measurements and Assessment WC - Nurse 1 - General Ulcer Measurement Start: 07/07/17 09:55 Freq: Status: Active Protocol: Activity Type Activity Date Activity User E-Sign Co-Sign Detail Recorded Client Recorded Date Recorded By Document 07/21/17 10:36 [facility] [id number] 07/21/17 10:45 [facility] 07/21/17 10:36 Wound Center Nurse 1 [Ulcer Assessment] 1. RLQ -Combined with other wound No -Current Size (cm) - Length 0.1 -Current Size (cm) - Width 0.7 -Current Size (cm) - Depth 3.6 -Total Square Cm 0.07 -Date of Last Picture (Recall this 07/21/17 field) -Photo Taken Yes -Epithelialization None Present -Tunneling No -Undermining/Tunneling No -Circular Undermining No -Exudate Amt Medium (34-66%) -Exudate Type Sanguineous -Wound Margin Distinct, Outline Attached -Granulation Amt Large (67-100%) -Granulation Quality Red -Slough/Fibrin No -Necrosis Amt None Present (0 %) -Texture (Fay-wound Skin Appearance) Scarring -Moisture (Fay-wound Skin Appearance Assessed ) -Color (Fay-wound Skin Appearance) Assessed -Temperature (Fay-wound Skin No Abnormality Appearance) (Pt Warm) -Tenderness on Palpation (Fay-wound Yes Skin Appearance) -Ulcer Cleansing Rinsed/ Irrigated with Saline -Foul Odor after Cleansing No -Anesthetic Used 5% Lidocaine Gel WC - Nurse 2 - General Ulcer CM Notes Start: 07/07/17 09:55 Freq: Status: Active Protocol: Activity Type Activity Date Activity User E-Sign Co-Sign Detail Recorded Client Recorded Date Recorded By Document 07/21/17 11:51 DV [id number] 07/21/17 11:52 DV 07/21/17 11:51 Wound Center Nurse 2 [Procedure/Treatment] -Time 11:52 -Correct Patient Yes -Correct Side, Site, Position Yes -Correct Procedure Yes -Procedure Performed Yes -Type of Procedure Debridement -Clinical Debridement Subcutaneous -Post Debridement Size (cm) - Length 0.2 -Post Debridement Size (cm) - Width 0.6 -Post Debridement Size (cm) - Depth 0.4 -Total Square Cm 0.12 -Wound/Ulcer Outcome Not Healed -Ulcer Cleansing Rinsed/ Irrigated with Saline -Foul Odor after Cleansing No -Bioengineered Tissue No -Bleeding Controlled with Pressure -Treatment Response Procedure Tolerated Well [See Physician Procedure note for Specifics] Pain Scale: 0-10 Numeric [Pain] -Is Patient Pain Free? Yes Musculoskeletal: No Muscle Wasting Neurological: Cranial nerves II-XII grossly intact Psych/Mental Status: Normal Affect Debridement Note Post-Debridement Measurements/Treatment WC - Nurse 2 - General Ulcer CM Notes Start: 07/07/17 09:55 Freq: Status: Active Protocol: Activity Type Activity Date Activity User E-Sign Co-Sign Detail Recorded Client Recorded Date Recorded By Document 07/15/17 11:20 DV [id number] 07/15/17 11:24 DV Document 07/21/17 11:51 DV [id number] 07/21/17 11:52 DV 07/15/17 07/21/17 11:20 11:51 Wound Center Nurse 2 1. RLQ -Time 11:21 11:52 -Correct Patient Yes Yes -Correct Side, Site, Position Yes Yes -Correct Procedure Yes Yes -Procedure Performed Yes Yes -Type of Procedure Debridement Debridement -Clinical Debridement Subcutaneous Subcutaneous -Post Debridement Size (cm) - Length 0.3 0.2 -Post Debridement Size (cm) - Width 0.7 0.6 -Post Debridement Size (cm) - Depth 3.8 0.4 -Total Square Cm 0.21 0.12 -Wound/Ulcer Outcome Not Healed Not Healed -Ulcer Cleansing Rinsed/ Rinsed/ Irrigated with Irrigated with Saline Saline -Foul Odor after Cleansing No No -Bioengineered Tissue No No -Bleeding Controlled with NA Pressure -Treatment Response Procedure Procedure Tolerated Well Tolerated Well Pain Scale: 0-10 Numeric Is Patient Pain Free? Yes Yes Wound debrided: Right sided abdominal wound Wound Grade/Stage: Stage II Type of Debridement: Excisional debridement Anesthesia Used: 4% Lidocaine Solution Depth: Down to and including healthy tissue, in the subcutaneous layer Percentage of wound debrided: 100 Instrument Used: 3mm curette Tissue Removed: Slough and devitalized tissue Severity: Fat Layer Exposed Amount of bleeding with debridement: Mild Bleeding Controlled with: Pressure Patient tolerated procedure well Assessment/Plan Active Problems (Last Reviewed 07/02/17 @ 13:05 by Jory Ruiz) Abdominal pain (Chronic) Surgical wound dehiscence (Chronic) DM2 (diabetes mellitus, type 2) (Chronic) Assessment: Abdominal wound dehiscence of a 10 year surgical scar. Diabetes mellitus type 2 poorly controlled. Ulcerative Colitis. Plan: Wound has stayed stable. Per patient imaging done at the [facility] not suggestive of a EC fistula. Still yet to follow up with either of her surgeons for the next step. Per patient, she has had difficulty getting a hold of them. Disscused with Dr. Noble's office and they will get back to me with plan after speaking with him. Debridement done as documented above. Procedure was well-tolerated. Continue aquacel daily to wound with Adaptic over top. Continue increased protein intake/supplements. Continue optimal blood sugar control. Follow-up in 1 week. This note was generated with [email or web address] dictation software. It may contain incorrect words, spelling, and punctuation that were not noted in checking the note before signing.
--- NOTE | 2017-07-21 12:01 | PN.PCM_ITS ---
(1) Abdominal pain Status: Chronic Current Visit: Yes Code(s): R10.9 - Unspecified abdominal pain (2) DM2 (diabetes mellitus, type 2) Status: Chronic Current Visit: Yes Qualifiers: Code(s): E11.9 - Type 2 diabetes mellitus without complications (3) Surgical wound dehiscence Status: Chronic Current Visit: Yes Qualifiers: Code(s): T81.31XA - Disruption of external operation (surgical) wound, not elsewhere classified, initial encounter Type of Wound Date of Service: 07/21/17 Chief Complaint: Right sided abdominal wound. History of Wound: Ms. Artis is a 56yo with an extensive past medical history who presented here on referral by her general surgeon. She was referred to general surgeon after she presented to her PCP with an opening of her 10 year surgical scar. This was said to be sudden in onset without any known precipitating factor. There has been no discharge from the site and no increased tenderness around the area either. She had been cleaning with hydrogen peroxide and dressing with gauze as recommended by her surgeon. She has a history of prior surgical wound dehiscence and these were as a result of undissolved sutures. She feels well otherwise. As stated earlier she denies any discharge from the wound site. She also denies chills, fever or otherwise feeling of unwell. Progress of Wound: Stable. - Physical Exam Vital Signs Temp Pulse Resp BP 97.1 F L 80 16 167/90 H 07/21/17 10:36 07/21/17 10:36 07/21/17 10:36 07/21/17 10:36 General: Alert, Oriented x3, Cooperative, No apparent distress HEENT: Atraumatic, Normocephalic Oral: Moist Mucosa Neck: Supple Lungs: Normal air movement Cardiovascular: Regular rate Abdomen: Soft, Obese Extremities: No cyanosis Skin: Ulcer/ Wound Wound Measurements and Assessment WC - Nurse 1 - General Ulcer Measurement Start: 07/07/17 09:55 Freq: Status: Active Protocol: Activity Type Activity Date Activity User E-Sign Co-Sign Detail Recorded Client Recorded Date Recorded By Document 07/21/17 10:36 [facility] [id number] 07/21/17 10:45 [facility] 07/21/17 10:36 Wound Center Nurse 1 [Ulcer Assessment] 1. RLQ -Combined with other wound No -Current Size (cm) - Length 0.1 -Current Size (cm) - Width 0.7 -Current Size (cm) - Depth 3.6 -Total Square Cm 0.07 -Date of Last Picture (Recall this 07/21/17 field) -Photo Taken Yes -Epithelialization None Present -Tunneling No -Undermining/Tunneling No -Circular Undermining No -Exudate Amt Medium (34-66%) -Exudate Type Sanguineous -Wound Margin Distinct, Outline Attached -Granulation Amt Large (67-100%) -Granulation Quality Red -Slough/Fibrin No -Necrosis Amt None Present (0 %) -Texture (Fay-wound Skin Appearance) Scarring -Moisture (Fay-wound Skin Appearance Assessed ) -Color (Fay-wound Skin Appearance) Assessed -Temperature (Fay-wound Skin No Abnormality Appearance) (Pt Warm) -Tenderness on Palpation (Fay-wound Yes Skin Appearance) -Ulcer Cleansing Rinsed/ Irrigated with Saline -Foul Odor after Cleansing No -Anesthetic Used 5% Lidocaine Gel WC - Nurse 2 - General Ulcer CM Notes Start: 07/07/17 09:55 Freq: Status: Active Protocol: Activity Type Activity Date Activity User E-Sign Co-Sign Detail Recorded Client Recorded Date Recorded By Document 07/21/17 11:51 DV [id number] 07/21/17 11:52 DV 07/21/17 11:51 Wound Center Nurse 2 [Procedure/Treatment] -Time 11:52 -Correct Patient Yes -Correct Side, Site, Position Yes -Correct Procedure Yes -Procedure Performed Yes -Type of Procedure Debridement -Clinical Debridement Subcutaneous -Post Debridement Size (cm) - Length 0.2 -Post Debridement Size (cm) - Width 0.6 -Post Debridement Size (cm) - Depth 0.4 -Total Square Cm 0.12 -Wound/Ulcer Outcome Not Healed -Ulcer Cleansing Rinsed/ Irrigated with Saline -Foul Odor after Cleansing No -Bioengineered Tissue No -Bleeding Controlled with Pressure -Treatment Response Procedure Tolerated Well [See Physician Procedure note for Specifics] Pain Scale: 0-10 Numeric [Pain] -Is Patient Pain Free? Yes Musculoskeletal: No Muscle Wasting Neurological: Cranial nerves II-XII grossly intact Psych/Mental Status: Normal Affect Debridement Note Post-Debridement Measurements/Treatment WC - Nurse 2 - General Ulcer CM Notes Start: 07/07/17 09:55 Freq: Status: Active Protocol: Activity Type Activity Date Activity User E-Sign Co-Sign Detail Recorded Client Recorded Date Recorded By Document 07/15/17 11:20 DV [id number] 07/15/17 11:24 DV Document 07/21/17 11:51 DV [id number] 07/21/17 11:52 DV 07/15/17 07/21/17 11:20 11:51 Wound Center Nurse 2 1. RLQ -Time 11:21 11:52 -Correct Patient Yes Yes -Correct Side, Site, Position Yes Yes -Correct Procedure Yes Yes -Procedure Performed Yes Yes -Type of Procedure Debridement Debridement -Clinical Debridement Subcutaneous Subcutaneous -Post Debridement Size (cm) - Length 0.3 0.2 -Post Debridement Size (cm) - Width 0.7 0.6 -Post Debridement Size (cm) - Depth 3.8 0.4 -Total Square Cm 0.21 0.12 -Wound/Ulcer Outcome Not Healed Not Healed -Ulcer Cleansing Rinsed/ Rinsed/ Irrigated with Irrigated with Saline Saline -Foul Odor after Cleansing No No -Bioengineered Tissue No No -Bleeding Controlled with NA Pressure -Treatment Response Procedure Procedure Tolerated Well Tolerated Well Pain Scale: 0-10 Numeric Is Patient Pain Free? Yes Yes Wound debrided: Right sided abdominal wound Wound Grade/Stage: Stage II Type of Debridement: Excisional debridement Anesthesia Used: 4% Lidocaine Solution Depth: Down to and including healthy tissue, in the subcutaneous layer Percentage of wound debrided: 100 Instrument Used: 3mm curette Tissue Removed: Slough and devitalized tissue Severity: Fat Layer Exposed Amount of bleeding with debridement: Mild Bleeding Controlled with: Pressure Patient tolerated procedure well Assessment/Plan Active Problems (Last Reviewed 07/02/17 @ 13:05 by Jory Ruiz) Abdominal pain (Chronic) Surgical wound dehiscence (Chronic) DM2 (diabetes mellitus, type 2) (Chronic) Assessment: Abdominal wound dehiscence of a 10 year surgical scar. Diabetes mellitus type 2 poorly controlled. Ulcerative Colitis. Plan: Wound has stayed stable. Per patient imaging done at the [facility] not suggestive of a EC fistula. Still yet to follow up with either of her surgeons for the next step. Per patient, she has had difficulty getting a hold of them. Disscused with Dr. Noble's office and they will get back to me with plan after speaking with him. Debridement done as documented above. Procedure was well-tolerated. Continue aquacel daily to wound with Adaptic over top. Continue increased protein intake/supplements. Continue optimal blood sugar control. Follow-up in 1 week. This note was generated with [employer] dictation software. It may contain incorrect words, spelling, and punctuation that were not noted in checking the note before signing.
[2017-07-28 10:15] VITALS: BP 163/75; PULSE 71; RESP 16; TEMP 36; BMI 31.0
--- NOTE | 2017-07-28 16:35 | PCM.WC.PN ---
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 Bp actually fairly good today. Has been scheduled for abdominal surgery at [facility]. Is having some memory loss and has seen neurologist. (3) Surgical wound dehiscence Status: Chronic Current Visit: Yes Qualifiers: Code(s): T81.31XA - Disruption of external operation (surgical) wound, not elsewhere classified, initial encounter Type of Wound Date of Service: 07/28/17 Chief Complaint: Right sided abdominal wound. History of Wound: Ms. Artis is a 56yo with an extensive past medical history who presented here on referral by her general surgeon. She was referred to general surgeon after she presented to her PCP with an opening of her 10 year surgical scar. This was said to be sudden in onset without any known precipitating factor. There has been no discharge from the site and no increased tenderness around the area either. She had been cleaning with hydrogen peroxide and dressing with gauze as recommended by her surgeon. She has a history of prior surgical wound dehiscence and these were as a result of undissolved sutures. She feels well otherwise. As stated earlier she denies any discharge from the wound site. She also denies chills, fever or otherwise feeling of unwell. Progress of Wound: Stable. - Physical Exam Vital Signs Temp Pulse Resp BP 96.8 F L 71 16 163/75 H 07/28/17 10:15 07/28/17 10:15 07/28/17 10:15 07/28/17 10:15 General: Alert, Oriented x3, Cooperative, No apparent distress HEENT: Atraumatic, Normocephalic Oral: Moist Mucosa Neck: Supple Lungs: Normal air movement Cardiovascular: Regular rate Abdomen: Soft Extremities: No cyanosis Skin: Ulcer/ Wound Wound Measurements and Assessment WC - Nurse 1 - General Ulcer Measurement Start: 07/07/17 09:55 Freq: Status: Active Protocol: Activity Type Activity Date Activity User E-Sign Co-Sign Detail Recorded Client Recorded Date Recorded By Document 07/28/17 10:[address] [facility] [id number] 07/28/17 10:[address] [facility] 07/28/17 10:15 Wound Center Nurse 1 [Ulcer Assessment] 1. RLQ -Combined with other wound No -Current Size (cm) - Length 0.2 -Current Size (cm) - Width 0.6 -Current Size (cm) - Depth 3.5 -Total Square Cm 0.12 -Photo Taken No -Epithelialization None Present -Tunneling No -Undermining/Tunneling No -Circular Undermining No -Exudate Amt Small (1-33%) -Exudate Type Serous -Wound Margin Distinct, Outline Attached -Granulation Amt Large (67-100%) -Granulation Quality Red -Slough/Fibrin No -Necrosis Amt None Present (0 %) -Texture (Fay-wound Skin Appearance) Scarring -Moisture (Fay-wound Skin Appearance Assessed ) -Color (Fay-wound Skin Appearance) Assessed -Temperature (Fay-wound Skin No Abnormality Appearance) (Pt Warm) -Tenderness on Palpation (Fay-wound No Skin Appearance) -Ulcer Cleansing Rinsed/ Irrigated with Saline -Foul Odor after Cleansing No -Anesthetic Used 4% Lidocaine Solution WC - Nurse 2 - General Ulcer CM Notes Start: 07/07/17 09:55 Freq: Status: Active Protocol: Activity Type Activity Date Activity User E-Sign Co-Sign Detail Recorded Client Recorded Date Recorded By Document 07/28/17 11:11 [id number] 07/28/17 11:13 07/28/17 11:11 Wound Center Nurse 2 [Procedure/Treatment] -Time 11:12 -Correct Patient Yes -Correct Side, Site, Position Yes -Correct Procedure Yes -Procedure Performed Yes -Type of Procedure Debridement -Clinical Debridement Subcutaneous -Post Debridement Size (cm) - Length 0.3 -Post Debridement Size (cm) - Width 0.7 -Post Debridement Size (cm) - Depth 3.5 -Total Square Cm 0.21 -Wound/Ulcer Outcome Not Healed -Ulcer Cleansing Rinsed/ Irrigated with Saline -Foul Odor after Cleansing No -Bioengineered Tissue No -Bleeding Controlled with NA -Treatment Response Procedure Tolerated Well [See Physician Procedure note for Specifics] Pain Scale: 0-10 Numeric [Pain] -Is Patient Pain Free? Yes Musculoskeletal: No Muscle Wasting Neurological: Cranial nerves II-XII grossly intact Psych/Mental Status: Normal Affect Debridement Note Post-Debridement Measurements/Treatment WC - Nurse 2 - General Ulcer CM Notes Start: 07/07/17 09:55 Freq: Status: Active Protocol: Activity Type Activity Date Activity User E-Sign Co-Sign Detail Recorded Client Recorded Date Recorded By Document 07/15/17 11:20 DV [id number] 07/15/17 11:24 DV Document 07/21/17 11:51 DV [id number] 07/21/17 11:52 DV Document 07/28/17 11:11 DV [id number] 07/28/17 11:13 DV 07/15/17 07/21/17 07/28/17 11:20 11:51 11:11 Wound Center Nurse 2 1. RLQ -Time 11:21 11:52 11:12 -Correct Patient Yes Yes Yes -Correct Side, Site, Position Yes Yes Yes -Correct Procedure Yes Yes Yes -Procedure Performed Yes Yes Yes -Type of Procedure Debridement Debridement Debridement -Clinical Debridement Subcutaneous Subcutaneous Subcutaneous -Post Debridement Size (cm) - Length 0.3 0.2 0.3 -Post Debridement Size (cm) - Width 0.7 0.6 0.7 -Post Debridement Size (cm) - Depth 3.8 4.0 3.5 -Total Square Cm 0.21 0.12 0.21 -Wound/Ulcer Outcome Not Healed Not Healed Not Healed -Ulcer Cleansing Rinsed/ Rinsed/ Rinsed/ Irrigated with Irrigated with Irrigated with Saline Saline Saline -Foul Odor after Cleansing No No No -Bioengineered Tissue No No No -Bleeding Controlled with NA Pressure NA -Treatment Response Procedure Procedure Procedure Tolerated Well Tolerated Well Tolerated Well Pain Scale: 0-10 Numeric Is Patient Pain Free? Yes Yes Yes Wound debrided: Right abdominal wound Wound Grade/Stage: Stage II Type of Debridement: Excisional debridement Anesthesia Used: 4% Lidocaine Solution Depth: Down to and including healthy tissue, in the subcutaneous layer Percentage of wound debrided: 100 Instrument Used: 3mm curette Tissue Removed: Devitalized tissue Severity: Fat Layer Exposed Amount of bleeding with debridement: Mild Bleeding Controlled with: Pressure Patient tolerated procedure well Assessment/Plan Active Problems (Last Reviewed 07/26/17 @ 08:55 by Ema Henderson) Abdominal pain (Chronic) Surgical wound dehiscence (Chronic) DM2 (diabetes mellitus, type 2) (Chronic) Continues to have abdominal pain and stress. Bp actually fairly good today. Has been scheduled for abdominal surgery at [facility] main campus. Is having some memory loss and has seen neurologist. Assessment: Abdominal wound dehiscence of a 10 year surgical scar. Diabetes mellitus type 2 poorly controlled. Ulcerative Colitis. Plan: Wound is stable. Scheduled to have surgery at the [facility] on the 13 of September. Debridement done as documented above. Procedure was well-tolerated. Continue aquacel daily to wound with Adaptic over top. Continue increased protein intake/supplements. Continue optimal blood sugar control. Follow-up in 1 week. This note was generated with [employer] dictation software. It may contain incorrect words, spelling, and punctuation that were not noted in checking the note before signing.
--- NOTE | 2017-07-28 16:38 | PN.PCM_ITS ---
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 Bp actually fairly good today. Has been scheduled for abdominal surgery at [facility]. Is having some memory loss and has seen neurologist. (3) Surgical wound dehiscence Status: Chronic Current Visit: Yes Qualifiers: Code(s): T81.31XA - Disruption of external operation (surgical) wound, not elsewhere classified, initial encounter Type of Wound Date of Service: 07/28/17 Chief Complaint: Right sided abdominal wound. History of Wound: Ms. Artis is a 56yo with an extensive past medical history who presented here on referral by her general surgeon. She was referred to general surgeon after she presented to her PCP with an opening of her 10 year surgical scar. This was said to be sudden in onset without any known precipitating factor. There has been no discharge from the site and no increased tenderness around the area either. She had been cleaning with hydrogen peroxide and dressing with gauze as recommended by her surgeon. She has a history of prior surgical wound dehiscence and these were as a result of undissolved sutures. She feels well otherwise. As stated earlier she denies any discharge from the wound site. She also denies chills, fever or otherwise feeling of unwell. Progress of Wound: Stable. - Physical Exam Vital Signs Temp Pulse Resp BP 96.8 F L 71 16 163/75 H 07/28/17 10:15 07/28/17 10:15 07/28/17 10:15 07/28/17 10:15 General: Alert, Oriented x3, Cooperative, No apparent distress HEENT: Atraumatic, Normocephalic Oral: Moist Mucosa Neck: Supple Lungs: Normal air movement Cardiovascular: Regular rate Abdomen: Soft Extremities: No cyanosis Skin: Ulcer/ Wound Wound Measurements and Assessment WC - Nurse 1 - General Ulcer Measurement Start: 07/07/17 09:55 Freq: Status: Active Protocol: Activity Type Activity Date Activity User E-Sign Co-Sign Detail Recorded Client Recorded Date Recorded By Document 07/28/17 10:15 [facility] [id number] 07/28/17 10:17 [facility] 07/28/17 10:15 Wound Center Nurse 1 [Ulcer Assessment] 1. RLQ -Combined with other wound No -Current Size (cm) - Length 0.2 -Current Size (cm) - Width 0.6 -Current Size (cm) - Depth 3.5 -Total Square Cm 0.12 -Photo Taken No -Epithelialization None Present -Tunneling No -Undermining/Tunneling No -Circular Undermining No -Exudate Amt Small (1-33%) -Exudate Type Serous -Wound Margin Distinct, Outline Attached -Granulation Amt Large (67-100%) -Granulation Quality Red -Slough/Fibrin No -Necrosis Amt None Present (0 %) -Texture (Fay-wound Skin Appearance) Scarring -Moisture (Fay-wound Skin Appearance Assessed ) -Color (Fay-wound Skin Appearance) Assessed -Temperature (Fay-wound Skin No Abnormality Appearance) (Pt Warm) -Tenderness on Palpation (Fay-wound No Skin Appearance) -Ulcer Cleansing Rinsed/ Irrigated with Saline -Foul Odor after Cleansing No -Anesthetic Used 4% Lidocaine Solution WC - Nurse 2 - General Ulcer CM Notes Start: 07/07/17 09:55 Freq: Status: Active Protocol: Activity Type Activity Date Activity User E-Sign Co-Sign Detail Recorded Client Recorded Date Recorded By Document 07/28/17 11:11 [id number] 07/28/17 11:13 07/28/17 11:11 Wound Center Nurse 2 [Procedure/Treatment] -Time 11:12 -Correct Patient Yes -Correct Side, Site, Position Yes -Correct Procedure Yes -Procedure Performed Yes -Type of Procedure Debridement -Clinical Debridement Subcutaneous -Post Debridement Size (cm) - Length 0.3 -Post Debridement Size (cm) - Width 0.7 -Post Debridement Size (cm) - Depth 3.5 -Total Square Cm 0.21 -Wound/Ulcer Outcome Not Healed -Ulcer Cleansing Rinsed/ Irrigated with Saline -Foul Odor after Cleansing No -Bioengineered Tissue No -Bleeding Controlled with NA -Treatment Response Procedure Tolerated Well [See Physician Procedure note for Specifics] Pain Scale: 0-10 Numeric [Pain] -Is Patient Pain Free? Yes Musculoskeletal: No Muscle Wasting Neurological: Cranial nerves II-XII grossly intact Psych/Mental Status: Normal Affect Debridement Note Post-Debridement Measurements/Treatment WC - Nurse 2 - General Ulcer CM Notes Start: 07/07/17 09:55 Freq: Status: Active Protocol: Activity Type Activity Date Activity User E-Sign Co-Sign Detail Recorded Client Recorded Date Recorded By Document 07/15/17 11:20 DV [id number] 07/15/17 11:24 DV Document 07/21/17 11:51 DV [id number] 07/21/17 11:52 DV Document 07/28/17 11:11 DV [id number] 07/28/17 11:13 DV 07/15/17 07/21/17 07/28/17 11:20 11:51 11:11 Wound Center Nurse 2 1. RLQ -Time 11:21 11:52 11:12 -Correct Patient Yes Yes Yes -Correct Side, Site, Position Yes Yes Yes -Correct Procedure Yes Yes Yes -Procedure Performed Yes Yes Yes -Type of Procedure Debridement Debridement Debridement -Clinical Debridement Subcutaneous Subcutaneous Subcutaneous -Post Debridement Size (cm) - Length 0.3 0.2 0.3 -Post Debridement Size (cm) - Width 0.7 0.6 0.7 -Post Debridement Size (cm) - Depth 3.8 4.0 3.5 -Total Square Cm 0.21 0.12 0.21 -Wound/Ulcer Outcome Not Healed Not Healed Not Healed -Ulcer Cleansing Rinsed/ Rinsed/ Rinsed/ Irrigated with Irrigated with Irrigated with Saline Saline Saline -Foul Odor after Cleansing No No No -Bioengineered Tissue No No No -Bleeding Controlled with NA Pressure NA -Treatment Response Procedure Procedure Procedure Tolerated Well Tolerated Well Tolerated Well Pain Scale: 0-10 Numeric Is Patient Pain Free? Yes Yes Yes Wound debrided: Right abdominal wound Wound Grade/Stage: Stage II Type of Debridement: Excisional debridement Anesthesia Used: 4% Lidocaine Solution Depth: Down to and including healthy tissue, in the subcutaneous layer Percentage of wound debrided: 100 Instrument Used: 3mm curette Tissue Removed: Devitalized tissue Severity: Fat Layer Exposed Amount of bleeding with debridement: Mild Bleeding Controlled with: Pressure Patient tolerated procedure well Assessment/Plan Active Problems (Last Reviewed 07/26/17 @ 08:55 by Ema Henderson) Abdominal pain (Chronic) Surgical wound dehiscence (Chronic) DM2 (diabetes mellitus, type 2) (Chronic) Continues to have abdominal pain and stress. Bp actually fairly good today. Has been scheduled for abdominal surgery at [facility]. Is having some memory loss and has seen neurologist. Assessment: Abdominal wound dehiscence of a 10 year surgical scar. Diabetes mellitus type 2 poorly controlled. Ulcerative Colitis. Plan: Wound is stable. Scheduled to have surgery at the [facility] on the 13 of September. Debridement done as documented above. Procedure was well-tolerated. Continue aquacel daily to wound with Adaptic over top. Continue increased protein intake/supplements. Continue optimal blood sugar control. Follow-up in 1 week. This note was generated with [employer] dictation software. It may contain incorrect words, spelling, and punctuation that were not noted in checking the note before signing.
[2017-08-04 12:15] VITALS: BP 144/80; PULSE 70; RESP 16; TEMP 36.3; BMI 31.0
--- NOTE | 2017-08-04 13:10 | PN.PCM_ITS ---
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 Bp actually fairly good today. Has been scheduled for abdominal surgery at [facility]. Is having some memory loss and has seen neurologist. (3) Surgical wound dehiscence Status: Chronic Current Visit: Yes Qualifiers: Code(s): T81.31XA - Disruption of external operation (surgical) wound, not elsewhere classified, initial encounter Type of Wound Date of Service: 08/04/17 Chief Complaint: Right sided abdominal wound. History of Wound: Ms. Artis is a 56yo with an extensive past medical history who presented here on referral by her general surgeon. She was referred to general surgeon after she presented to her PCP with an opening of her 10 year surgical scar. This was said to be sudden in onset without any known precipitating factor. There has been no discharge from the site and no increased tenderness around the area either. She had been cleaning with hydrogen peroxide and dressing with gauze as recommended by her surgeon. She has a history of prior surgical wound dehiscence and these were as a result of undissolved sutures. She feels well otherwise. As stated earlier she denies any discharge from the wound site. She also denies chills, fever or otherwise feeling of unwell. Progress of Wound: Stable. - Physical Exam Vital Signs Temp Pulse Resp BP 97.3 F L 70 16 144/80 H 08/04/17 12:15 08/04/17 12:15 08/04/17 12:15 08/04/17 12:15 General: Alert, Oriented x3, Cooperative, No apparent distress HEENT: Atraumatic, Normocephalic Oral: Moist Mucosa Neck: Supple Lungs: Normal air movement Cardiovascular: Regular rate Abdomen: Soft, Obese Extremities: No cyanosis Skin: Ulcer/ Wound Wound Measurements and Assessment WC - Nurse 1 - General Ulcer Measurement Start: 07/07/17 09:55 Freq: Status: Active Protocol: Activity Type Activity Date Activity User E-Sign Co-Sign Detail Recorded Client Recorded Date Recorded By Document 08/04/17 12:15 [facility] [id number] 08/04/17 12:22 [facility] 08/04/17 12:15 Wound Center Nurse 1 [Ulcer Assessment] 1. RLQ -Combined with other wound No -Current Size (cm) - Length 0.1 -Current Size (cm) - Width 0.8 -Current Size (cm) - Depth 3.5 -Total Square Cm 0.08 -Photo Taken No -Epithelialization None Present -Tunneling No -Undermining/Tunneling No -Circular Undermining No -Exudate Amt Large (67-100%) -Exudate Type Sanguineous -Wound Margin Distinct, Outline Attached -Granulation Amt Large (67-100%) -Granulation Quality [place] -Slough/Fibrin No -Necrosis Amt None Present (0 %) -Texture (Fay-wound Skin Appearance) Excoriation Scarring -Moisture (Fay-wound Skin Appearance Assessed ) Maceration -Color (Fay-wound Skin Appearance) Assessed Erythema -Temperature (Fay-wound Skin No Abnormality Appearance) (Pt Warm) -Tenderness on Palpation (Fay-wound Yes Skin Appearance) -Ulcer Cleansing Rinsed/ Irrigated with Saline -Foul Odor after Cleansing No -Anesthetic Used 4% Lidocaine Solution WC - Nurse 2 - General Ulcer CM Notes Start: 07/07/17 09:55 Freq: Status: Active Protocol: Activity Type Activity Date Activity User E-Sign Co-Sign Detail Recorded Client Recorded Date Recorded By Document 08/04/17 12:48 [id number] 08/04/17 12:49 08/04/17 12:48 Wound Center Nurse 2 [Procedure/Treatment] -Time 12:49 -Correct Patient Yes -Correct Side, Site, Position Yes -Correct Procedure Yes -Procedure Performed Yes -Type of Procedure Debridement -Clinical Debridement Subcutaneous -Post Debridement Size (cm) - Length 0.2 -Post Debridement Size (cm) - Width 0.8 -Post Debridement Size (cm) - Depth 3.8 -Total Square Cm 0.16 -Wound/Ulcer Outcome Not Healed -Ulcer Cleansing Rinsed/ Irrigated with Saline -Foul Odor after Cleansing No -Bioengineered Tissue No -Bleeding Controlled with Pressure -Treatment Response Procedure Tolerated Well [See Physician Procedure note for Specifics] Pain Scale: 0-10 Numeric [Pain] -Is Patient Pain Free? Yes Musculoskeletal: No Muscle Wasting Neurological: Cranial nerves II-XII grossly intact Psych/Mental Status: Normal Affect Debridement Note Post-Debridement Measurements/Treatment WC - Nurse 2 - General Ulcer CM Notes Start: 07/07/17 09:55 Freq: Status: Active Protocol: Activity Type Activity Date Activity User E-Sign Co-Sign Detail Recorded Client Recorded Date Recorded By Document 07/15/17 11:20 DV [id number] 07/15/17 11:24 DV Document 07/21/17 11:51 DV [id number] 07/21/17 11:52 DV Document 07/28/17 11:11 DV [id number] 07/28/17 11:13 DV Document 08/04/17 12:48 DV [id number] 08/04/17 12:49 DV 07/15/17 07/21/17 07/28/17 11:20 11:51 11:11 Wound Center Nurse 2 1. RLQ -Time 11:21 11:52 11:12 -Correct Patient Yes Yes Yes -Correct Side, Site, Position Yes Yes Yes -Correct Procedure Yes Yes Yes -Procedure Performed Yes Yes Yes -Type of Procedure Debridement Debridement Debridement -Clinical Debridement Subcutaneous Subcutaneous Subcutaneous -Post Debridement Size (cm) - Length 0.3 0.2 0.3 -Post Debridement Size (cm) - Width 0.7 0.6 0.7 -Post Debridement Size (cm) - Depth 3.8 4.0 3.5 -Total Square Cm 0.21 0.12 0.21 -Wound/Ulcer Outcome Not Healed Not Healed Not Healed -Ulcer Cleansing Rinsed/ Rinsed/ Rinsed/ Irrigated with Irrigated with Irrigated with Saline Saline Saline -Foul Odor after Cleansing No No No -Bioengineered Tissue No No No -Bleeding Controlled with NA Pressure NA -Treatment Response Procedure Procedure Procedure Tolerated Well Tolerated Well Tolerated Well Pain Scale: 0-10 Numeric Is Patient Pain Free? Yes Yes Yes 08/04/17 12:48 Wound Center Nurse 2 1. RLQ -Time 12:49 -Correct Patient Yes -Correct Side, Site, Position Yes -Correct Procedure Yes -Procedure Performed Yes -Type of Procedure Debridement -Clinical Debridement Subcutaneous -Post Debridement Size (cm) - Length 0.2 -Post Debridement Size (cm) - Width 0.8 -Post Debridement Size (cm) - Depth 3.8 -Total Square Cm 0.16 -Wound/Ulcer Outcome Not Healed -Ulcer Cleansing Rinsed/ Irrigated with Saline -Foul Odor after Cleansing No -Bioengineered Tissue No -Bleeding Controlled with Pressure -Treatment Response Procedure Tolerated Well Pain Scale: 0-10 Numeric Is Patient Pain Free? Yes Wound debrided: Right sided abdominal wound Wound Grade/Stage: Stage II Type of Debridement: Excisional debridement Anesthesia Used: 4% Lidocaine Solution Depth: Down to and including healthy tissue, in the subcutaneous layer Percentage of wound debrided: 100 Instrument Used: 3mm curette Tissue Removed: Biofilm Severity: Fat Layer Exposed Amount of bleeding with debridement: Mild Bleeding Controlled with: Pressure Patient tolerated procedure well Assessment/Plan Active Problems (Last Reviewed 07/26/17 @ 08:55 by Ema Henderson) Abdominal pain (Chronic) Surgical wound dehiscence (Chronic) DM2 (diabetes mellitus, type 2) (Chronic) Continues to have abdominal pain and stress. Bp actually fairly good today. Has been scheduled for abdominal surgery at [facility] main campus. Is having some memory loss and has seen neurologist. Assessment: Abdominal wound dehiscence of a 10 year surgical scar. Diabetes mellitus type 2 poorly controlled. Ulcerative Colitis. Plan: Wound is stable. Scheduled to have surgery at the [facility] on the 18 of August and pre op testing done next wednesday. Debridement done as documented above. Procedure was well-tolerated. Continue aquacel daily to wound with Adaptic over top. Continue increased protein intake/supplements. Continue optimal blood sugar control. Follow-up in 1 week. This note was generated with [employer] dictation software. It may contain incorrect words, spelling, and punctuation that were not noted in checking the note before signing.
== END 2017-08-05 23:59 ==
LOC: WC 11:30
PROVIDERS: Family Provider Internal Medicine; PCP Internal Medicine; Visit Provider Internal Medicine
DX: T81.31XA Disruption of external operation (surgical) wound, not elsewhere classified, initial encounter (principal); K51.90 Ulcerative colitis, unspecified, without complications; E11.65 Type 2 diabetes mellitus with hyperglycemia; Z79.4 Long term (current) use of insulin
CPT/HCPCS: 11042

== ENCOUNTER → 2017-08-05 08:47 | Outpatient (CLI) | payer MEDICAID, SELFPAY ==
--- NOTE | 2017-08-05 08:48 | ECHOD_ITS ---
Reason For Study: DYSPNEA/SOB Procedure This was a 2D Doppler, Color Flow transthoracic echocardiogram. Exam performed in department. Left Ventricle Normal size and thickness. The estimated ejection fraction is 65 %. Stage 1 diastolic dysfunction. No regional wall motion abnormalities noted. Right Ventricle Normal size and thickness. Normal systolic function. Atria Normal left atrium. Normal right atrium. Normal atrial septum. Mitral Valve Mild focal mitral valve thickening. Tricuspid Valve Normal tricuspid valve. Unable to estimate RV systolic pressure due to inadequate jet, pulmonary artery pressure probably normal. Aortic Valve Normal aortic valve. Trisinus/trileaflet aortic valve. Pulmonic Valve The pulmonic valve is not well visualized. Great Vessels Normal aortic root. Normal arch. Normal inferior vena cava. Inferior vena cava collapse with sniff. Pericardium/Pleural No pericardial effusion. MMode/2D Measurements & Calculations LVIDd: 4.6 cm IVSd: 1.2 cm Ao root diam: 2.9 cm LVIDs: 3.1 cm LVPWd: 0.99 cm RVDd: 2.7 cm FS: 32.7 % LAV(MOD-bp): 32.7 ml EDV(MOD-sp4): 63.7 ml SV(MOD-sp4): 39.7 ml LAV(MOD-bp) Indexed: 16.2 ml/m2 ESV(MOD-sp4): 24.0 ml LAV(MOD-sp2): 36.6 ml EF(MOD-sp4): 62.3 % LAV(MOD-sp4): 25.2 ml LA A4 area: 11.6 cm2 RA A4 area: 10.1 cm2 Time Measurements MV dec time: 0.28 sec Doppler Measurements & Calculations MV E max los: 81.4 cm/sec Lat Peak E' Los: 9.1 cm/sec Med Peak E' Los: 5.0 cm/sec MV A max los: 103.0 cm/sec E/E' lat: 8.9 E/E' med: 16.1 MV E/A: 0.79 Ao V2 max: 166.9 cm/sec LV V1 max: 121.3 cm/sec PA V2 max: 140.4 cm/sec Ao max P.1 mmHg LV V1 max P.9 mmHg PI end-d los: 117.9 cm/sec Interpretation Summary The estimated ejection fraction is 65 %. Stage 1 diastolic dysfunction. Unable to estimate RV systolic pressure due to inadequate jet, pulmonary artery pressure probably normal. Compared to echo report dated 04/18/2015, no appreciable changes noted. Ordering Physician: Davide Baca Referring Physician: KAITLIN CAMPBELL Performed By: Bree Yates RDCS
== END ==
PROVIDERS: Family Provider Internal Medicine; PCP Internal Medicine; Visit Provider Internal Medicine Critical Care Medicine
DX: I27.20 Pulmonary hypertension, unspecified (principal); R06.02 Shortness of breath
CPT/HCPCS: 93306

== ENCOUNTER 2017-09-06 09:54 | Inpatient (IN) | payer MEDICAID, SELFPAY ==
[2017-09-06] VITALS (11 sets, daily range): BP systolic 151–180; BP diastolic 65–80; PULSE 72–132; RESP 16–22; TEMP 35.9–37.1; O2SAT 95–97; BMI 30.2; BMI 30.4
--- NOTE | 2017-09-06 10:15 | RAD_ITS ---
STUDY: X-RAY CHEST REASON FOR EXAM: Female, 57 years old. Shortness of breath, history of previous cardiac surgery TECHNIQUE: Single AP portable view of the chest. COMPARISON: 07/07/2017 FINDINGS: There are interstitial fibrotic changes of the lungs. There is no demonstrated pleural abnormality. Sternal cerclage wires and vascular clips are present from a prior sternotomy and coronary artery bypass graft procedure (CABG). Normal mediastinum and marie. Normal visualized pulmonary arteries. Normal visualized aortic arch and descending thoracic aorta. Normal visualized thoracic spine. Normal visualized ribs, clavicles, and shoulders. There is no demonstrated abnormality of the visualized soft tissue structures of the upper abdomen. RAD/Chest 1 View (Portable) IMPRESSION: Degenerative changes, as described above. No demonstrated acute cardiopulmonary process. Electronically Signed: Leoncio Lopez MD at 11:10 EDT , Service support ,
--- NOTE | 2017-09-06 10:16 | EKG12_ITS ---
Test Reason : DYSRHYTHMIA Blood Pressure : / mmHG Vent. Rate : 117 BPM Atrial Rate : 117 BPM P-R Int : 164 ms QRS Dur : 088 ms QT Int : 340 ms P-R-T Axes : 029 -25 106 degrees QTc Int : 474 ms Sinus tachycardia Left ventricular hypertrophy with repolarization abnormality Abnormal ECG Confirmed by CHLOÉ DOMINGUEZ, AL ([id number]), communications editor MALIK HULL ([id number]) on 09/09/2017 2:51:44 PM Referred By: BATOOL Confirmed By:AL LUEVANO MD
--- NOTE | 2017-09-06 10:17 | CT_ITS ---
STUDY: CT ABDOMEN AND PELVIS WITHOUT CONTRAST REASON FOR EXAM: Female, 57 years old. Diffuse abdominal pain, fistulous drainage RADIATION DOSAGE (If Supplied By Facility): CTDIvol = ( 11.98 ) mGy, DLP = ( 622.77 ) mGycm TECHNIQUE: Transaxial images were obtained from the dome of the diaphragm to the symphysis pubis without oral contrast, and without intravenous contrast. Sagittal and coronal images were reconstructed. Individualized dose optimization techniques were used for this CT. COMPARISON: 05/27/2017 FINDINGS: The visualized lung bases are unremarkable. The visualized portions of the heart are within normal limits. Normal liver. There are surgical clips in the gallbladder fossa consistent with a prior cholecystectomy. Normal spleen. Normal pancreas. Normal bilateral adrenal glands. Normal right kidney. Normal left kidney. Normal visualized stomach. There is a conglomeration of bowel loops adherent to the inner lining of the peritoneal surface just craniad to the umbilicus. There is associated subcutaneous emphysema, and herniation of the ventral fat this is likely the source of the fistulous drainage. There is stranding of the subcutaneous fat consistent with acute inflammatory change. An ostomy site in the right lower quadrant has been surgically closed. There is a left lower quadrant ostomy site free of complication. There is non-visualization of the appendix. There is diffuse atherosclerotic calcification of the abdominal aorta, without a demonstrated aneurysm. Normal inferior vena cava. Normal retroperitoneum. Normal urinary bladder. There are diffuse degenerative changes of the visualized lumbar spine, and pelvis. CT/Abdomen/Pelvis without Cont IMPRESSION: Postoperative changes noted in multiple bowel loops in the central upper abdomen which are adherent to the undersurface of the peritoneum there is associated induration of the subcutaneous fat at this level as well as a fistulous connection to the skin surface. There is no organized abscess. Left lower quadrant ostomy site free of complication a right lower quadrant ostomy site has been surgically closed. No suspicious solid organ abnormality, previous cholecystectomy Degenerative bony changes Electronically Signed: Leoncio Lopez MD at 11:51 EDT , Service support ,
[2017-09-06] MEDS: Ipratropium/Albuterol Sulfate 3 ML AMPUL.NEB INHALATION (10:43)
[2017-09-06] MEDS: 0.9% Normal Saline 1,000 ML 1000 ML IV (10:46)
[2017-09-06 10:53] LABS: Absolute Lymphocyte Count 1.55 X10^3/ul (0.83-4.51); Absolute Neutrophil Count 9.4 X10^3/uL (2.0-7.7); Basophil# 0.02 X10^3/uL; Basophil% 0.2 % (0-1); Eosinophil# 0.31 X10^3/uL; Eosinophils% 2.6 % (0-5); Hematocrit 36.9 % (37-47); Hemoglobin 11.8 g/dl (12.0-15.0); Lymphocyte # 1.55 X10^3/ul (4.0); Lymphocyte % 12.8 % (19-41); Mean Corpuscular Hgb 26.9 pg (27.0-32.0); Mean Corpuscular Volume 84.2 fL (81-99); Monocyte# 0.83 X10^3/uL; Monocyte% 6.8 % (0-10); Neutrophil # 9.39 X10^3/uL (2.7-7.7); Neutrophil % 77.4 % (47-70); POSITIVE COUNT NO; POSITIVE DIFFERENTIAL NO; POSITIVE MORPHOLOGY NO; Platelet Count 295 K/mm3 (150-450); RBC Distribution Width SD 46.4 fl (35.1-43.9); Red Blood Count 4.38 M/mm3 (4.2-5.4); White Blood Count 12.1 K/mm3 (4.4-11.0)
[2017-09-06 11:08] LABS: Anion Gap 11 (5-15); BUN 19 mg/dL (7-18); BUN/Creat Ratio 13.4 RATIO (10-20); Calcium,Total 9.6 mg/dL (8.5-10.1); Chloride 98 mmol/L (98-107); Creatinine, Serum 1.42 mg/dL (0.55-1.02); EST Glomerular Filtration Rate 40 mL/min (>60); Est Glom Filt Rate - Afr Amer 49 mL/min (>60); Estimated Creatinine Clearance 41.48 ml/min; Glucose 395 mg/dL (74-106); Lipase 144 U/L (73-393); Potassium 3.9 mmol/L (3.5-5.1); Sodium Level 134 mmol/L (136-145)
[2017-09-06 11:21] LABS: Lactic Acid 3.6 mmol/L (0.4-2.0)
--- NOTE | 2017-09-06 12:14 | CT_ITS ---
STUDY: CTA CHEST REASON FOR EXAM: Female, 57 years old. Dyspnea. Recent abdominal surgery. RADIATION DOSAGE (If Supplied By Facility): CTDIvol = ( 14.74 ) mGy, DLP = ( 662.57 ) mGycm TECHNIQUE: The examination was performed with the intravenous administration of 75CC ml of Isovue 370 contrast material. Post-processing of the angiographic images was performed, with multiplanar reformation and 3D reconstruction. Individualized dose optimization techniques were used for this CT. COMPARISON: Comparison is made with prior study dated July 13, 2017. FINDINGS: Normal enhancement of the main pulmonary artery and right and left pulmonary arteries. Normal enhancement of the bilateral peripheral pulmonary arteries. There is no demonstrated pulmonary embolism. Normal thoracic aorta and visualized great vessels. There is no demonstrated aortic dissection. Sternal cerclage wires and vascular clips are present from a prior sternotomy and coronary artery bypass graft procedure (CABG). Normal mediastinum. Normal hilar regions. Normal visualized trachea and bronchi. The lungs are well expanded. Minimal increased markings in the posterior aspect of the right upper lobe abutting the right minor fissure. This may represent atelectasis and/or early infiltrate. Normal pleura. Normal chest wall structures. There are degenerative changes of thoracic spine. Normal visualized upper abdomen. CT/CTA Chest W/WO Contrast IMPRESSION: Minimal increased markings in the posterior aspect of the right upper lobe as it abuts the minor fissure. Electronically Signed: Eric Spencer MD at 13:10 EDT Tel [phone], Service support ,
[2017-09-06 12:32] LABS: Bacteria 0 SEEN /hpf (None Seen); Mucous, Urine 0 SEEN /hpf (<or=2+); White Blood Cells 0 SEEN /hpf (0-5)
[2017-09-06 12:38] LABS: Color, Urine Yellow (Yellow); Glucose, Dipstick 1000 mg/dl (Normal); Ketone-Dipstick 5 mg/dl (Negative); Leukocyte Esterase-Dipstick Negative /ul (Negative); Nitrite-Dipstick Negative (Negative); Occult Blood-Urine 10 /ul (Negative); Protein-Dipstick 100 mg/dl (Negative); Specific Gravity, Urine 1.015 (1.002-1.030); Urine Bilirubin Dipstick Negative (Negative); Urine Clarity Sl. Cloudy (Clear); Urine Urobilinogen Normal (Normal)
[2017-09-06 12:43] LABS: Red Blood Cells-Urine 0-5 SEEN /hpf (0-5)
[2017-09-06 12:44] LABS: Squamous Epithelial Cells - UA 0-5 SEEN /hpf (5-10)
--- NOTE | 2017-09-06 14:32 | ED.VISSUMM ---
- ER Visit Summary Date of Service: 09/06/17 Chief Complaint: [Abdominal pain and dyspnea] History of Present Illness: The patient is a 57 F [presents to the emergency department with complaint of abdominal discomfort and dyspnea. Patient states that she had a abdominal fistula repair August [address] [facility]. Since that time patient's been having dyspnea and cough. Patient generally feels weak and feels like she is not getting enough fluids and feels dehydrated. Patient had decreased urine output and decreased ileostomy output. Patient's had fever up to 103 and the last time this was elevated was 3 days ago. Patient has a history of coronary artery disease, COPD, diabetes, hypertension, high cholesterol, ulcerative colitis, chronic renal failure and gastroparesis. Patient also has a ileostomy.] Physical Examination: [HEENT-PERRLA, EOMI. Cranial nerves II through XII grossly intact. TMs clear. Mucous membranes moist. No adenopathy. Cardiovascular-regular rate and rhythm without murmur or ectopy Lungs-breath sounds bilaterally with some rales noted in the bases. No accessory muscle use or retractions. Occasional faint X Tory wheezes noted. Abdomen-normoactive bowel sounds, soft. Patient has some mild diffuse tenderness. There is no rebound, rigidity, or perineal signs. Patient has a small drain in the right lower quadrant from fistula repair and this is only has minimal amount of drainage noted from it. Patient also has an ileostomy in the left lower quadrant. No hernias noted. Extremities-intact ?4, normal range of motion, normal pulses, atraumatic] Test Results: [CBC with differential obtained showed a white count 12.1, hemoglobin 11.8, hematocrit 37, platelet 245. Chemistries unremarkable. Lipase was 144. Urinalysis was normal. Troponin was less than 0.015. Lactate was elevated 3.6. EKG obtained on arrival shows sinus tachycardia with a rate of [address] changes noted. Chest x-ray obtained showed degenerative changes of the spine otherwise nothing significant. CT scan of the flank showed postop changes nothing significant. CT scan of the chest obtained to rule out PE was negative for PE but there were increased markings in the right upper lobe and could not rule out early infiltrate.] Emergency Department Course and Treatment: [Patient was started on Azactam and vancomycin. Patient was medicated with morphine and Zofran. Patient was given DuoNeb aerosol.] Treatment Plan: [Patient case was discussed with Dr. Nuha Fairchild as well as hospitalist Dr. Whittington will evaluate patient for admission Disposition: [Admit] Impression: [Postop abdominal pain Health acquired pneumonia Dehydration Sepsis] This note was generated with [employer] dictation software. It may contain incorrect words, spelling, and punctuation that were not noted in review of the chart prior to signing ED Disposition - Plan for ED Patient: Chief Complaint: Abd Pain Referrals: Mala Mcgrath MD [Primary Care Provider] -
[2017-09-06 14:45] LABS: Reflex Lactate? Y
[2017-09-06] MEDS: Ondansetron 4 MG/2 ML Vial IV (14:48)
[2017-09-06] MEDS: Morphine 4 MG/ML Syringe IV (14:48)
--- NOTE | 2017-09-06 15:00 | CM.ED ---
Social Work Note Attempted to see pt prior to admission. Hospitalist present with pt. SW to return as time allows. Linda Mar, SOLE LEVELING MACHINE OPERATOR, HOME DAY CARE PROVIDER
--- NOTE | 2017-09-06 15:20 | PCM.HP.STD ---
Problem List (1) Shortness of breath Status: Acute (2) Abdominal pain Status: Acute Qualifiers: Abdominal location: right lower quadrant Qualified Code(s): R10.31 - Right lower quadrant pain History of Present Illness Date of Admission: 09/06/17 Chief Complaint: shortness of breath, fever, productive cough The patient is a 57 year old F with an extensive past medical history of coronary artery disease status post quadruple bypass and 9 stents, ulcerative colitis with ileostomy in place and status post colectomy many years ago, COPD, diabetes, hypertension, hyperlipidemia, chronic renal failure and gastroparesis due to diabetes. Patient was admitted via the ED on 09-21 with complaint of fever for the past 4 days, shortness of breath and no abdominal pain. According to patient she had surgery for abdominal fistula on 19 August 2016 at [facility]. Patient felt well after the surgery and had his pooja removed by her primary care physician last . Subsequent to that, patient noticed that she had a fever which went as high as 103 Fahrenheit. Fever was swinging and she had episodes of chills as well. She had an associated cough which is post productive of greenish and yellowish sputum. She notes that she was short of breath and also pleuritic chest pain with breathing in and out. She also had a right lower quadrant abdominal pain after she had the sutures removed and noticed that she had some discharge, this was around the drain that had been placed and not from the drain. Discharge had actually reduced a bit. She also complained of decreased oral intake, decreased urine output with darkening of the urine color. She felt very lethargic and was not able to undergo her independent activities of daily living. She therefore decided to come to the hospital today. Vitals on admission showed T-96.6F, BP-180/72, ND-117 and RR-16. White cell count of 12.1 with hemoglobin of 11 point and platelets of 245. BMP showed Na of 134, Cr of 1.42, eGFR of 40. Lipase was 144 urinalysis was normal. Lactic was elevated at 3.6. EKG on arrival shows sinus tachycardia with rate of 117 beat per minute and nonspecific ST changes noted. Chest x-ray done showed degenerative changes of the spine and CT of the abdomen showed only postop changes. CT of the chest was negative for PE but showed increased markings in the right upper lobe and could not rule out an infiltrate. Patient was started on IV aztreonam and vancomycin in the ED has been admitted to be managed for health associated pneumonia and surgical site infection. [] Past Medical History Past Medical History (Chronic Problems): Chronic Problems (Last Updated 09/02/17 @ 09:12 by Jory Ruiz) Multiple falls (Chronic) Syncope (Chronic) Vertigo (Chronic) Chronic renal insufficiency (Chronic) Sleep apnea (Chronic) Menieres disease (Chronic) Ulcerative colitis (Chronic) Ileostomy status (Chronic) Surgical wound dehiscence (Chronic) CAD (coronary artery disease) (Chronic) Hyperlipidemia (Chronic) Continues on statin without side effect. Reports taking as directed. No recent labs noted. Diarrhea (Chronic) Anemia of chronic renal failure, stage 3 (moderate) (Chronic) Obstructive sleep apnea (Chronic) Psoriasis (Chronic) Heart failure with preserved ejection fraction (Chronic) Benign essential HTN (Chronic) Depression (Chronic) DM2 (diabetes mellitus, type 2) (Chronic) Continues to have abdominal pain and stress. Bp actually fairly good today. Has been scheduled for abdominal surgery at [facility]. Is having some memory loss and has seen neurologist. FCHL (familial combined hyperlipidemia) (Chronic) Ulcerative colitis (Chronic) Status post ileostomy Hx of coronary artery disease (Chronic) Status post CABG, failed, status post multiple stents. Pulmonary hypertension (Chronic) History of coronary artery stent placement (Chronic ~2012) Mid LAD and Cx 2012, D1 and prox OM1 2012, Prox SVG, Distal SVG to the Mid OM 2012 S/P CABG (coronary artery bypass graft) (Chronic ~2012) JONES to LAD, SVG diag, SVG to OM, SVG to left PDA Chronic respiratory failure (Chronic) COPD (chronic obstructive pulmonary disease) (Chronic) Medical History: Medical History (Last Updated 09/02/17 @ 09:12 by Jory Ruiz) Syncope (Chronic) R55 Vertigo (Chronic) R42 Chronic renal insufficiency (Chronic) N18.9 Sleep apnea (Chronic) G47.30 Menieres disease (Chronic) H81.09 Ulcerative colitis (Chronic) K51.90 CAD (coronary artery disease) (Chronic) I25.10 Hyperlipidemia (Chronic) E78.5 Continues on statin without side effect. Reports taking as directed. No recent labs noted. Benign essential HTN (Chronic) I10 DM2 (diabetes mellitus, type 2) (Chronic) E11.9 Continues to have abdominal pain and stress. Bp actually fairly good today. Has been scheduled for abdominal surgery at [facility] main campus. Is having some memory loss and has seen neurologist. Hx of coronary artery disease (Chronic) Z86.79 Status post CABG, failed, status post multiple stents. History of coronary artery stent placement (Chronic) Onset Date: ~2012 Z95.5 Mid LAD and Cx 2012, D1 and prox OM1 2012, Prox SVG, Distal SVG to the Mid OM 2012 Allergies cinnamon [Cinnamon] Allergy (Verified 09/06/17 09:56) Anaphylaxis Influenza Virus Vaccines Allergy (Verified 09/06/17 09:56) Shortness of breath liraglutide [From Victoza] Allergy (Verified 09/06/17 09:56) Anaphylaxis metronidazole [From Flagyl] Allergy (Verified 09/06/17 09:56) Hives Metronidazole HCl [From Flagyl] Allergy (Verified 09/06/17 09:56) Hives Penicillins Allergy (Verified 09/06/17 09:56) Hives Sulfa (Sulfonamide Antibiotics) Allergy (Verified 09/06/17 09:56) Hives ciprofloxacin [From Cipro] Adverse Reaction (Verified 09/06/17 09:56) Nausea codeine Adverse Reaction (Verified 09/06/17 09:56) Stops Ileostomy dicyclomine HCl [From Bentyl] Adverse Reaction (Verified 09/06/17 09:56) Nausea metformin HCl [From Glucophage] Adverse Reaction (Verified 09/06/17 09:56) Nausea Axdnkuj-Exs-Vcp Reductase Inhibitor Adverse Reaction (Verified 09/06/17 09:56) Nausea/joints ache Home Medications: Ambulatory Orders Medication Instructions Recorded Aspirin [Aspirin, Baby] 81 mg PO DAILY@0800 01/21/15 Atorvastatin Calcium [Lipitor] 80 mg PO QHS 01/21/15 Clopidogrel Bisulfate [Plavix] 75 mg PO DAILY 01/21/15 Magnesium Oxide [Mag-Ox 400] 400 mg PO BID 01/21/15 Metoprolol Tartrate [Lopressor 75 mg PO TID 01/21/15 (beta esha)] Isosorbide DN [Isordil] 30 mg PO TID 09/03/16 Ondansetron HCl [Zofran] 4 mg PO Q8H PRN PRN #20 tab 09/05/16 Baclofen 10 mg PO QHS 11/24/16 Calcium Carbonate [Calcium] 600 mg PO BID 11/24/16 Cholecalciferol (Vitamin D3) 2,000 unit PO DAILY 11/24/16 [Vitamin D3] loperamide 2 mg tablet 2 mg PO 4X/DAY PRN PRN tab 02/12/17 omeprazole 20 mg capsule,delayed 20 mg PO DAILY 02/12/17 release insulin aspart U-100 100 unit/mL 20 - 40 units SC TIDCM ml 03/23/17 subcutaneous pen miconazole nitrate 2 % topical 1 applic TOPICAL DAILY 03/23/17 powder tramadol 50 mg tablet 50 mg PO BID PRN PRN tab 05/05/17 Hydrocortisone 1 applic TOPICAL BID 06/02/17 nitroglycerin 0.4 mg sublingual 0.4 mg SUBLINGUAL Q5M PRN #25 tab 06/08/17 tablet buprenorphine 5 mcg/hour weekly 1 patch TRANSDERMAL QWEEK 07/02/17 transdermal patch Furosemide [Lasix] 40 mg PO DAILY 07/07/17 lorazepam 0.5 mg tablet 0.5 mg PO QHS PRN #30 tab 08/04/17 pregabalin 50 mg capsule 50 mg PO BID #60 cap 08/04/17 insulin glargine (U-100) 100 80 units SC BID ml 09/02/17 unit/mL (3 mL) subcutaneous pen Albuterol Sulfate [Ventolin Hfa] 2 puff INHALATION Q6H PRN 09/06/17 Duloxetine Hcl [Cymbalta] 30 mg PO BID 09/06/17 Pen Needle, Diabetic [Unifine 1 ndl .ROUTE .MEDSUPPLY 09/06/17 Pentips Plus] Surgical History: Surgical History (Last Updated 09/02/17 @ 09:12 by Jory Ruiz) S/P CABG (coronary artery bypass graft) (Chronic) Onset Date: ~2012 Z95.1 JONES to LAD, SVG diag, SVG to OM, SVG to left PDA H/O colectomy Z98.890, Z90.49 H/O total hysterectomy Z98.890, Z90.710 gallbdder removal history closed fissure ileostomy left thumb surgery lysis of adhesion vestibular nerve surgery for Meniere's Surgical History: angioplasty, coronary bypass surgery, hysterectomy, - - Complete colectomy for ulcerative colitis 30 years ago. Patient had her ileostomy transitioned over from her right to her left. Lives: Alone Smoking Status: Former smoker Alcohol: None Drugs: None - *Family History Maternal Family History: Family History (Last Reviewed 09/02/17 @ 09:11 by Jory Ruiz) Mother CVA (cerebral vascular accident) Diabetes Brother Heart disease Myocardial infarction Pancreatitis Father Cancer Lymphoma Grandmother Myocardial infarction Sister COPD (chronic obstructive pulmonary disease) History Items: Heart Disease, - - No autoimmune disease that she is aware of Paternal Family History: Family History (Last Reviewed 09/02/17 @ 09:11 by Jory Ruiz) Mother CVA (cerebral vascular accident) Diabetes Brother Heart disease Myocardial infarction Pancreatitis Father Cancer Lymphoma Grandmother Myocardial infarction Sister COPD (chronic obstructive pulmonary disease) History Items: Cancer - Father has H/o lymphoma, - - No autoimmune disease that she is aware of Review of Systems Constitutional: Reports: Anorexia, Chills, Fever, Night Sweats, Malaise, Weakness, Fatigue Eyes: Denies: Blurred vision HEENT: Denies: Difficulty Hearing, Difficulty Swallowing, Head Aches Cardiovascular: Reports: Palpitations. Denies: Chest Pain, Claudication, Chest Tightness, Edema, Heaviness, Light Headedness, Orthopnea, Syncope Respiratory: Reports: Cough, Pleuritic Pain, Shortness of Breath, Shortness of breath at rest, Shortness of breath upon exertion, Sputum production, Wheezing Gastrointestinal: Reports: Abdominal Pain - Lower quadrant at site of surgery, Nausea. Denies: Diarrhea, Dyspepsia, Vomiting Genitourinary: Denies: Dysuria, Frequency, Hesitancy, Incontinence Musculoskeletal: Denies: Joint Pain, Joint Tenderness Skin: Denies: Dryness, Jaundice, Rash, Skin Changes Neurological: Denies: Numbness, Tingling, Focal weakness Psychiatric: Denies: Anxiety Hematologic/ Lymphatic: Denies: Easy Bruising, Easy Bleeding VTE Information - Inpt Only VTE Present on Admission: No VTE Mechan Device Prophylaxis: SCD's VTE Pharm Prophylaxis ordered?: Yes - Physical Exam General: Alert, Oriented x3, Cooperative, - - Mild distress HEENT: Atraumatic, PERRLA, EOMI, Normocephalic Oral: Dry Mucosa Neck: Supple, No JVD, Negative Carotid Bruits, No Nodes, No Nuchal Rigidity, Trachea Midline Lungs: Short of Breath, - - Has adequate breathsounds bilaterally. Has coarse crackles in left lower lung corral and a few crackles in right lower lung corral. No wheezing auscultated. Cardiovascular: Regular Rhythm, Normal S1, Normal S2, No murmurs, Tachycardic Abdomen: Bowel Sounds Present, Soft, - - Has an ileostomy bag in left lower quadrants containing scanty stool. Has healing surgical scar and infraumbilical area. Draining right lower quadrant at site of surgery is clean. Very minimal erythema around drain. Slight puslike discharge from around drain, with no tenderness or induration on palpation. Extremities: No clubbing, No cyanosis, No edema, Capillary Refill Less than 3 Seconds Skin: No rashes Musculoskeletal: No Tenderness to Palpation of Joints or Extremities Lymphatic: No Cervical, Supraclavicular, or Inguinal Adenopathy Neurological: Cranial nerves II-XII grossly intact Psych/Mental Status: Normal Affect, Appropriate, Alert and oriented to time, place, person, mood and affect Vital Signs Temp Pulse Resp BP Pulse Ox 96.6 F L 117 H 16 180/72 H 95 09/06/17 09:56 09/06/17 13:26 09/06/17 13:26 09/06/17 11:49 09/06/17 13:26 Laboratory Tests Past 24 Hrs 09/06/17 15:10 Lactic Acid Pending Impressions Chest X-Ray 09/06/17 10:15 IMPRESSION: Degenerative changes, as described above. No demonstrated acute cardiopulmonary process. Electronically Signed: Leoncio Lopez MD at 11:10 EDT , Service support , Abdomen/Pelvis CT 09/06/17 10:17 IMPRESSION: Postoperative changes noted in multiple bowel loops in the central upper abdomen which are adherent to the undersurface of the peritoneum there is associated induration of the subcutaneous fat at this level as well as a fistulous connection to the skin surface. There is no organized abscess. Left lower quadrant ostomy site free of complication a right lower quadrant ostomy site has been surgically closed. No suspicious solid organ abnormality, previous cholecystectomy Degenerative bony changes Electronically Signed: Leoncio Lopez MD at 11:51 EDT , Service support , Chest CTA 09/06/17 12:14 IMPRESSION: Minimal increased markings in the posterior aspect of the right upper lobe as it abuts the minor fissure. Electronically Signed: Eric Spencer MD at 13:10 EDT Tel [phone], Service support , 09/06/17 10:15 Chest 1 View (Portable) [RAD] Stat 09/06/17 10:17 Abdomen/Pelvis without Cont [CT] Stat 09/06/17 12:14 CTA Chest W/WO Contrast [CT] Stat Laboratory Results 09/06/17 09/06/17 09/06/17 Range/Units 10:35 10:35 10:35 WBC 12.1 H (4.4-11.0) K/mm3 RBC 4.38 (4.2-5.4) M/mm3 Hgb 11.8 L (12.0-15.0) g/dl Hct 36.9 L (37-47) % MCV 84.2 (81-99) fL MCH 26.9 L (27.0-32.0) pg MCHC 32.0 (32-36) g/gl RDW 15.0 H (11.6-14.6) % RDW Differential 46.4 H (35.1-43.9) fl Plt Count 295 (150-450) K/mm3 MPV 12.0 (6.2-12.0) fl Immature Gran % (Auto) 0.200 (0.0-0.9) % Neut % (Auto) 77.4 H (47-70) % Lymph % (Auto) 12.8 L (19-41) % Benzie % (Auto) 6.8 (0-10) % Eos % (Auto) 2.6 (0-5) % Baso % (Auto) 0.2 (0-1) % Absolute Neuts (auto) 9.4 H (2.0-7.7) X10^3/uL Absolute Lymphs (auto) 1.55 (0.83-4.51) X10^3/ul Total Counted Not Reportable Sodium 134 L (136-145) mmol/L Potassium 3.9 (3.5-5.1) mmol/L Chloride 98 (98-107) mmol/L Carbon Dioxide 25.0 (21.0-32.0) mmol/L Anion Gap 11 (5-15) BUN 19 H (7-18) mg/dL Creatinine 1.42 H (0.55-1.02) mg/dL Estim Creat Clear Calc 41.48 ml/min Est GFR (MDRD) Af Amer 49 L (>60) mL/min Est GFR (MDRD) Non-Af 40 L (>60) mL/min BUN/Creatinine Ratio 13.4 (10-20) RATIO Glucose 395 H (74-106) mg/dL Lactic Acid 3.6 H (0.4-2.0) mmol/L Calcium 9.6 (8.5-10.1) mg/dL Troponin I < 0.015 (<0.045) ng/mL Lipase 144 (73-393) U/L Urine Color (Yellow) Urine Clarity (Clear) Urine pH (5.0 - 8.0) Ur Specific [place] (1.002-1.030) Urine Protein (Negative) mg/dl Urine Glucose (UA) (Normal) mg/dl Urine Ketones (Negative) mg/dl Urine Occult Blood (Negative) /ul Urine Nitrite (Negative) Urine Bilirubin (Negative) mg/dL Urine Urobilinogen (Normal) mg/dl Ur Leukocyte Esterase (Negative) /ul Urine RBC (0-5) /hpf Urine WBC (0-5) /hpf Ur Squamous Epith Cells (5-10) /hpf Urine Bacteria (None Seen) /hpf Urine Mucus (<or=2+) /hpf 09/06/17 Range/Units 12:25 WBC (4.4-11.0) K/mm3 RBC (4.2-5.4) M/mm3 Hgb (12.0-15.0) g/dl Hct (37-47) % MCV (81-99) fL MCH (27.0-32.0) pg MCHC (32-36) g/gl RDW (11.6-14.6) % RDW Differential (35.1-43.9) fl Plt Count (150-450) K/mm3 MPV (6.2-12.0) fl Immature Gran % (Auto) (0.0-0.9) % Neut % (Auto) (47-70) % Lymph % (Auto) (19-41) % Benzie % (Auto) (0-10) % Eos % (Auto) (0-5) % Baso % (Auto) (0-1) % Absolute Neuts (auto) (2.0-7.7) X10^3/uL Absolute Lymphs (auto) (0.83-4.51) X10^3/ul Total Counted Sodium (136-145) mmol/L Potassium (3.5-5.1) mmol/L Chloride (98-107) mmol/L Carbon Dioxide (21.0-32.0) mmol/L Anion Gap (5-15) BUN (7-18) mg/dL Creatinine (0.55-1.02) mg/dL Estim Creat Clear Calc ml/min Est GFR (MDRD) Af Amer (>60) mL/min Est GFR (MDRD) Non-Af (>60) mL/min BUN/Creatinine Ratio (10-20) RATIO Glucose (74-106) mg/dL Lactic Acid (0.4-2.0) mmol/L Calcium (8.5-10.1) mg/dL Troponin I (<0.045) ng/mL Lipase (73-393) U/L Urine Color Yellow (Yellow) Urine Clarity Sl. Cloudy (Clear) Urine pH 6.0 (5.0 - 8.0) Ur Specific [place] 1.015 (1.002-1.030) Urine Protein 100 H (Negative) mg/dl Urine Glucose (UA) 1000 H (Normal) mg/dl Urine Ketones 5 H (Negative) mg/dl Urine Occult Blood 10 H (Negative) /ul Urine Nitrite Negative (Negative) Urine Bilirubin Negative (Negative) mg/dL Urine Urobilinogen Normal (Normal) mg/dl Ur Leukocyte Esterase Negative (Negative) /ul Urine RBC 0-5 SEEN (0-5) /hpf Urine WBC 0 SEEN (0-5) /hpf Ur Squamous Epith Cells 0-5 SEEN (5-10) /hpf Urine Bacteria 0 SEEN (None Seen) /hpf Urine Mucus 0 SEEN (<or=2+) /hpf Assessment/Plan All Active Problems (Last Updated 09/02/17 @ 09:12 by Jory Ruiz) Shortness of breath (Acute) Abdominal pain (Acute) Acute pancreatitis (Resolved) Chest pain (Resolved) Hypokalemia (Resolved) 57 year female but extensive past medical history and recent history of surgery for right lower quadrant fistula about 2 weeks ago, presents with a complaint of fever 4 days duration, shortness of breath and a productive cough as well as mild increase in drainage from around the drain. 1. Sepsis due to health associated pneumonia and surgical site infection Use incentive spirometry during his stay in the hospital but has not been using it afterwards. Has a cough productive of greenish yellow sputum and shortness of breath with assisted pleuritic chest pain bilaterally. Had coarse crackles in left lower lung field. On admission but increased to 22. Has SIRS criteria 2/4, with focus of infection likely pneumonia and possible surgical site infection qSOFA score: 1 White cell count is 12.1 and lactic acid was 3.6. blood cultures ordered; will order wound culture of surgical site also CXR: degenrative processes, with no acute cardiopulmonary process Chest CT: No evidence of PE, and minimal increased markings in posterior aspect of the right upper lobe which may represent atelectasis and or early infiltrate. CT abdomen: Postoperative changes and multiple bowel loops in the central upper abdomen adherent to the undersurface of the retroperitoneum with assisted induration of subcutaneous fat at this level as well as a fistulous connection to the skin surface. No organized abscess. Left lower quadrant ostomy site free of complication. No solid organ abnormality. Previous cholecystectomy. Received a dose of IV vancomycin 1.25, in the ED. Admit to MedSur unit with telemetry Received a bolus of IV fluids normal saline 1 L in the ED. Will give another liter of normal saline and monitor urine output. will check urine urine output and continue fluids at rate as needed. Will continue IV vancomycin with pharmacy to dose and give IV meropenem 1 g every 8. Patient allergic to penicillin hence use of IV meropenem. will cycle lactic acid to see if it trends down. surgical consult placed with Dr Fairchidl 2. Type 2 diabetes mellitus On Lantus 80 units twice daily and aspart. Accuchecks ACHS. Will hold Lantus in light of patient's low oral intake. will monitor sugar, and resume ;antus as needed 3. HTN BP during review was in 200s systolic. On metoprolol; didnt take it this morning as she was not feeling well will resume meds, and give IV hydralazine prn 4. COPD will give breathing treatments with atrovent. Will hold albuterol due to tachycardia 5. CAD s/p stents and quadruple bypass on statin, imdur and plavix; will continue 6. History of ulcerative colitis s/p colectomy, with ileostomy bag in place: stable 7. DVT prophylaxis: heparin 8. GI prophylaxis: omeprazole Code status: full code. Time spent with patient and partner counseling about different types of CODE STATUS. Patient selected full code and expressed understanding of various types of CODE STATUS. This note was generated with [employer] software. It may contain incorrect words, spelling, and punctuation that were not noted in checking the note before signing. Code Visit Inpatient E&M: 13969 Init Hosp L3
--- NOTE | 2017-09-06 15:31 | HP.PCM_ITS ---
Problem List (1) Shortness of breath Status: Acute (2) Abdominal pain Status: Acute Qualifiers: Abdominal location: right lower quadrant Qualified Code(s): R10.31 - Right lower quadrant pain History of Present Illness Date of Admission: 09/06/17 Chief Complaint: shortness of breath, fever, productive cough The patient is a 57 year old F with an extensive past medical history of coronary artery disease status post quadruple bypass and 9 stents, ulcerative colitis with ileostomy in place and status post colectomy many years ago, COPD, diabetes, hypertension, hyperlipidemia, chronic renal failure and gastroparesis due to diabetes. Patient was admitted via the ED on 09-21 with complaint of fever for the past 4 days, shortness of breath and no abdominal pain. According to patient she had surgery for abdominal fistula on 19 August 2016 at [facility]. Patient felt well after the surgery and had his pooja removed by her primary care physician last . Subsequent to that , patient noticed that she had a fever which went as high as 103 Fahrenheit. Fever was swinging and she had episodes of chills as well. She had an associated cough which is post productive of greenish and yellowish sputum. She notes that she was short of breath and also pleuritic chest pain with breathing in and out. She also had a right lower quadrant abdominal pain after she had the sutures removed and noticed that she had some discharge, this was around the drain that had been placed and not from the drain. Discharge had actually reduced a bit. She also complained of decreased oral intake, decreased urine output with darkening of the urine color. She felt very lethargic and was not able to undergo her independent activities of daily living. She therefore decided to come to the hospital today. Vitals on admission showed T-96.6F, BP-180/72, OR-117 and RR-16. White cell count of 12.1 with hemoglobin of 11 point and platelets of 245. BMP showed Na of 134, Cr of 1.42, eGFR of 40. Lipase was 144 urinalysis was normal. Lactic was elevated at 3.6. EKG on arrival shows sinus tachycardia with rate of 117 beat per minute and nonspecific ST changes noted. Chest x-ray done showed degenerative changes of the spine and CT of the abdomen showed only postop changes. CT of the chest was negative for PE but showed increased markings in the right upper lobe and could not rule out an infiltrate. Patient was started on IV aztreonam and vancomycin in the ED has been admitted to be managed for health associated pneumonia and surgical site infection. [] Past Medical History Past Medical History (Chronic Problems): Chronic Problems (Last Updated 09/02/17 @ 09:12 by Jory Ruiz) Multiple falls (Chronic) Syncope (Chronic) Vertigo (Chronic) Chronic renal insufficiency (Chronic) Sleep apnea (Chronic) Menieres disease (Chronic) Ulcerative colitis (Chronic) Ileostomy status (Chronic) Surgical wound dehiscence (Chronic) CAD (coronary artery disease) (Chronic) Hyperlipidemia (Chronic) Continues on statin without side effect. Reports taking as directed. No recent labs noted. Diarrhea (Chronic) Anemia of chronic renal failure, stage 3 (moderate) (Chronic) Obstructive sleep apnea (Chronic) Psoriasis (Chronic) Heart failure with preserved ejection fraction (Chronic) Benign essential HTN (Chronic) Depression (Chronic) DM2 (diabetes mellitus, type 2) (Chronic) Continues to have abdominal pain and stress. Bp actually fairly good today. Has been scheduled for abdominal surgery at [facility]. Is having some memory loss and has seen neurologist. FCHL (familial combined hyperlipidemia) (Chronic) Ulcerative colitis (Chronic) Status post ileostomy Hx of coronary artery disease (Chronic) Status post CABG, failed, status post multiple stents. Pulmonary hypertension (Chronic) History of coronary artery stent placement (Chronic ~2012) Mid LAD and Cx 2012, D1 and prox OM1 2012, Prox SVG, Distal SVG to the Mid OM 2012 S/P CABG (coronary artery bypass graft) (Chronic ~2012) JONES to LAD, SVG diag, SVG to OM, SVG to left PDA Chronic respiratory failure (Chronic) COPD (chronic obstructive pulmonary disease) (Chronic) Medical History: Medical History (Last Updated 09/02/17 @ 09:12 by Jory Ruiz) Syncope (Chronic) R55 Vertigo (Chronic) R42 Chronic renal insufficiency (Chronic) N18.9 Sleep apnea (Chronic) G47.30 Menieres disease (Chronic) H81.09 Ulcerative colitis (Chronic) K51.90 CAD (coronary artery disease) (Chronic) I25.10 Hyperlipidemia (Chronic) E78.5 Continues on statin without side effect. Reports taking as directed. No recent labs noted. Benign essential HTN (Chronic) I10 DM2 (diabetes mellitus, type 2) (Chronic) E11.9 Continues to have abdominal pain and stress. Bp actually fairly good today. Has been scheduled for abdominal surgery at [facility] main campus. Is having some memory loss and has seen neurologist. Hx of coronary artery disease (Chronic) Z86.79 Status post CABG, failed, status post multiple stents. History of coronary artery stent placement (Chronic) Onset Date: ~2012 Z95.5 Mid LAD and Cx 2012, D1 and prox OM1 2012, Prox SVG, Distal SVG to the Mid OM 2012 Allergies cinnamon [Cinnamon] Allergy (Verified 09/06/17 09:56) Anaphylaxis Influenza Virus Vaccines Allergy (Verified 09/06/17 09:56) Shortness of breath liraglutide [From Victoza] Allergy (Verified 09/06/17 09:56) Anaphylaxis metronidazole [From Flagyl] Allergy (Verified 09/06/17 09:56) Hives Metronidazole HCl [From Flagyl] Allergy (Verified 09/06/17 09:56) Hives Penicillins Allergy (Verified 09/06/17 09:56) Hives Sulfa (Sulfonamide Antibiotics) Allergy (Verified 09/06/17 09:56) Hives ciprofloxacin [From Cipro] Adverse Reaction (Verified 09/06/17 09:56) Nausea codeine Adverse Reaction (Verified 09/06/17 09:56) Stops Ileostomy dicyclomine HCl [From Bentyl] Adverse Reaction (Verified 09/06/17 09:56) Nausea metformin HCl [From Glucophage] Adverse Reaction (Verified 09/06/17 09:56) Nausea Mncodbb-Nfb-Pfg Reductase Inhibitor Adverse Reaction (Verified 09/06/17 09:56) Nausea/joints ache Home Medications: Ambulatory Orders Medication Instructions Recorded Aspirin [Aspirin, Baby] 81 mg PO DAILY@0800 01/21/15 Atorvastatin Calcium [Lipitor] 80 mg PO QHS 01/21/15 Clopidogrel Bisulfate [Plavix] 75 mg PO DAILY 01/21/15 Magnesium Oxide [Mag-Ox 400] 400 mg PO BID 01/21/15 Metoprolol Tartrate [Lopressor 75 mg PO TID 01/21/15 (beta esha)] Isosorbide DN [Isordil] 30 mg PO TID 09/03/16 Ondansetron HCl [Zofran] 4 mg PO Q8H PRN PRN #20 tab 09/05/16 Baclofen 10 mg PO QHS 11/24/16 Calcium Carbonate [Calcium] 600 mg PO BID 11/24/16 Cholecalciferol (Vitamin D3) 2,000 unit PO DAILY 11/24/16 [Vitamin D3] loperamide 2 mg tablet 2 mg PO 4X/DAY PRN PRN tab 02/12/17 omeprazole 20 mg capsule,delayed 20 mg PO DAILY 02/12/17 release insulin aspart U-100 100 unit/mL 20 - 40 units SC TIDCM ml 03/23/17 subcutaneous pen miconazole nitrate 2 % topical 1 applic TOPICAL DAILY 03/23/17 powder tramadol 50 mg tablet 50 mg PO BID PRN PRN tab 05/05/17 Hydrocortisone 1 applic TOPICAL BID 06/02/17 nitroglycerin 0.4 mg sublingual 0.4 mg SUBLINGUAL Q5M PRN #25 tab 06/08/17 tablet buprenorphine 5 mcg/hour weekly 1 patch TRANSDERMAL QWEEK 07/02/17 transdermal patch Furosemide [Lasix] 40 mg PO DAILY 07/07/17 lorazepam 0.5 mg tablet 0.5 mg PO QHS PRN #30 tab 08/04/17 pregabalin 50 mg capsule 50 mg PO BID #60 cap 08/04/17 insulin glargine (U-100) 100 80 units SC BID ml 09/02/17 unit/mL (3 mL) subcutaneous pen Albuterol Sulfate [Ventolin Hfa] 2 puff INHALATION Q6H PRN 09/06/17 Duloxetine Hcl [Cymbalta] 30 mg PO BID 09/06/17 Pen Needle, Diabetic [Unifine 1 ndl .ROUTE .MEDSUPPLY 09/06/17 Pentips Plus] Surgical History: Surgical History (Last Updated 09/02/17 @ 09:12 by Jory Ruiz) S/P CABG (coronary artery bypass graft) (Chronic) Onset Date: ~2012 Z95.1 JONES to LAD, SVG diag, SVG to OM, SVG to left PDA H/O colectomy Z98.890, Z90.49 H/O total hysterectomy Z98.890, Z90.710 gallbdder removal history closed fissure ileostomy left thumb surgery lysis of adhesion vestibular nerve surgery for Meniere's Surgical History: angioplasty, coronary bypass surgery, hysterectomy, - - Complete colectomy for ulcerative colitis 30 years ago. Patient had her ileostomy transitioned over from her right to her left. Lives: Alone Smoking Status: Former smoker Alcohol: None Drugs: None - *Family History Maternal Family History: Family History (Last Reviewed 09/02/17 @ 09:11 by Jory Ruiz) Mother CVA (cerebral vascular accident) Diabetes Brother Heart disease Myocardial infarction Pancreatitis Father Cancer Lymphoma Grandmother Myocardial infarction Sister COPD (chronic obstructive pulmonary disease) History Items: Heart Disease, - - No autoimmune disease that she is aware of Paternal Family History: Family History (Last Reviewed 09/02/17 @ 09:11 by Jory Ruiz) Mother CVA (cerebral vascular accident) Diabetes Brother Heart disease Myocardial infarction Pancreatitis Father Cancer Lymphoma Grandmother Myocardial infarction Sister COPD (chronic obstructive pulmonary disease) History Items: Cancer - Father has H/o lymphoma, - - No autoimmune disease that she is aware of Review of Systems Constitutional: Reports: Anorexia, Chills, Fever, Night Sweats, Malaise, Weakness, Fatigue Eyes: Denies: Blurred vision HEENT: Denies: Difficulty Hearing, Difficulty Swallowing, Head Aches Cardiovascular: Reports: Palpitations. Denies: Chest Pain, Claudication, Chest Tightness, Edema, Heaviness, Light Headedness, Orthopnea, Syncope Respiratory: Reports: Cough, Pleuritic Pain, Shortness of Breath, Shortness of breath at rest, Shortness of breath upon exertion, Sputum production, Wheezing Gastrointestinal: Reports: Abdominal Pain - Lower quadrant at site of surgery, Nausea. Denies: Diarrhea, Dyspepsia, Vomiting Genitourinary: Denies: Dysuria, Frequency, Hesitancy, Incontinence Musculoskeletal: Denies: Joint Pain, Joint Tenderness Skin: Denies: Dryness, Jaundice, Rash, Skin Changes Neurological: Denies: Numbness, Tingling, Focal weakness Psychiatric: Denies: Anxiety Hematologic/ Lymphatic: Denies: Easy Bruising, Easy Bleeding VTE Information - Inpt Only VTE Present on Admission: No VTE Mechan Device Prophylaxis: SCD's VTE Pharm Prophylaxis ordered?: Yes - Physical Exam General: Alert, Oriented x3, Cooperative, - - Mild distress HEENT: Atraumatic, PERRLA, EOMI, Normocephalic Oral: Dry Mucosa Neck: Supple, No JVD, Negative Carotid Bruits, No Nodes, No Nuchal Rigidity, Trachea Midline Lungs: Short of Breath, - - Has adequate breathsounds bilaterally. Has coarse crackles in left lower lung corral and a few crackles in right lower lung corral. No wheezing auscultated. Cardiovascular: Regular Rhythm, Normal S1, Normal S2, No murmurs, Tachycardic Abdomen: Bowel Sounds Present, Soft, - - Has an ileostomy bag in left lower quadrants containing scanty stool. Has healing surgical scar and infraumbilical area. Draining right lower quadrant at site of surgery is clean. Very minimal erythema around drain. Slight puslike discharge from around drain, with no tenderness or induration on palpation. Extremities: No clubbing, No cyanosis, No edema, Capillary Refill Less than 3 Seconds Skin: No rashes Musculoskeletal: No Tenderness to Palpation of Joints or Extremities Lymphatic: No Cervical, Supraclavicular, or Inguinal Adenopathy Neurological: Cranial nerves II-XII grossly intact Psych/Mental Status: Normal Affect, Appropriate, Alert and oriented to time, place, person, mood and affect Vital Signs Temp Pulse Resp BP Pulse Ox 96.6 F L 117 H 16 180/72 H 95 09/06/17 09:56 09/06/17 13:26 09/06/17 13:26 09/06/17 11:49 09/06/17 13:26 Laboratory Tests Past 24 Hrs 09/06/17 15:10 Lactic Acid Pending Impressions Chest X-Ray 09/06/17 10:15 IMPRESSION: Degenerative changes, as described above. No demonstrated acute cardiopulmonary process. Electronically Signed: Leoncio Lopez MD at 11:10 EDT , Service support , Abdomen/Pelvis CT 09/06/17 10:17 IMPRESSION: Postoperative changes noted in multiple bowel loops in the central upper abdomen which are adherent to the undersurface of the peritoneum there is associated induration of the subcutaneous fat at this level as well as a fistulous connection to the skin surface. There is no organized abscess. Left lower quadrant ostomy site free of complication a right lower quadrant ostomy site has been surgically closed. No suspicious solid organ abnormality, previous cholecystectomy Degenerative bony changes Electronically Signed: Leoncio Lopez MD at 11:51 EDT , Service support , Chest CTA 09/06/17 12:14 IMPRESSION: Minimal increased markings in the posterior aspect of the right upper lobe as it abuts the minor fissure. Electronically Signed: Eric Spencer MD at 13:10 EDT Tel [phone], Service support , 09/06/17 10:15 Chest 1 View (Portable) [RAD] Stat 09/06/17 10:17 Abdomen/Pelvis without Cont [CT] Stat 09/06/17 12:14 CTA Chest W/WO Contrast [CT] Stat Laboratory Results 09/06/17 09/06/17 09/06/17 Range/Units 10:35 10:35 10:35 WBC 12.1 H (4.4-11.0) K/mm3 RBC 4.38 (4.2-5.4) M/mm3 Hgb 11.8 L (12.0-15.0) g/dl Hct 36.9 L (37-47) % MCV 84.2 (81-99) fL MCH 26.9 L (27.0-32.0) pg MCHC 32.0 (32-36) g/gl RDW 15.0 H (11.6-14.6) % RDW Differential 46.4 H (35.1-43.9) fl Plt Count 295 (150-450) K/mm3 MPV 12.0 (6.2-12.0) fl Immature Gran % (Auto) 0.200 (0.0-0.9) % Neut % (Auto) 77.4 H (47-70) % Lymph % (Auto) 12.8 L (19-41) % Patrick % (Auto) 6.8 (0-10) % Eos % (Auto) 2.6 (0-5) % Baso % (Auto) 0.2 (0-1) % Absolute Neuts (auto) 9.4 H (2.0-7.7) X10^3/uL Absolute Lymphs (auto) 1.55 (0.83-4.51) X10^3/ul Total Counted Not Reportable Sodium 134 L (136-145) mmol/L Potassium 3.9 (3.5-5.1) mmol/L Chloride 98 (98-107) mmol/L Carbon Dioxide 25.0 (21.0-32.0) mmol/L Anion Gap 11 (5-15) BUN 19 H (7-18) mg/dL Creatinine 1.42 H (0.55-1.02) mg/dL Estim Creat Clear Calc 41.48 ml/min Est GFR (MDRD) Af Amer 49 L (>60) mL/min Est GFR (MDRD) Non-Af 40 L (>60) mL/min BUN/Creatinine Ratio 13.4 (10-20) RATIO Glucose 395 H (74-106) mg/dL Lactic Acid 3.6 H (0.4-2.0) mmol/L Calcium 9.6 (8.5-10.1) mg/dL Troponin I < 0.015 (<0.045) ng/mL Lipase 144 (73-393) U/L Urine Color (Yellow) Urine Clarity (Clear) Urine pH (5.0 - 8.0) Ur Specific Flippin (1.002-1.030) Urine Protein (Negative) mg/dl Urine Glucose (UA) (Normal) mg/dl Urine Ketones (Negative) mg/dl Urine Occult Blood (Negative) /ul Urine Nitrite (Negative) Urine Bilirubin (Negative) mg/dL Urine Urobilinogen (Normal) mg/dl Ur Leukocyte Esterase (Negative) /ul Urine RBC (0-5) /hpf Urine WBC (0-5) /hpf Ur Squamous Epith Cells (5-10) /hpf Urine Bacteria (None Seen) /hpf Urine Mucus (<or=2+) /hpf 09/06/17 Range/Units 12:25 WBC (4.4-11.0) K/mm3 RBC (4.2-5.4) M/mm3 Hgb (12.0-15.0) g/dl Hct (37-47) % MCV (81-99) fL MCH (27.0-32.0) pg MCHC (32-36) g/gl RDW (11.6-14.6) % RDW Differential (35.1-43.9) fl Plt Count (150-450) K/mm3 MPV (6.2-12.0) fl Immature Gran % (Auto) (0.0-0.9) % Neut % (Auto) (47-70) % Lymph % (Auto) (19-41) % Patrick % (Auto) (0-10) % Eos % (Auto) (0-5) % Baso % (Auto) (0-1) % Absolute Neuts (auto) (2.0-7.7) X10^3/uL Absolute Lymphs (auto) (0.83-4.51) X10^3/ul Total Counted Sodium (136-145) mmol/L Potassium (3.5-5.1) mmol/L Chloride (98-107) mmol/L Carbon Dioxide (21.0-32.0) mmol/L Anion Gap (5-15) BUN (7-18) mg/dL Creatinine (0.55-1.02) mg/dL Estim Creat Clear Calc ml/min Est GFR (MDRD) Af Amer (>60) mL/min Est GFR (MDRD) Non-Af (>60) mL/min BUN/Creatinine Ratio (10-20) RATIO Glucose (74-106) mg/dL Lactic Acid (0.4-2.0) mmol/L Calcium (8.5-10.1) mg/dL Troponin I (<0.045) ng/mL Lipase (73-393) U/L Urine Color Yellow (Yellow) Urine Clarity Sl. Cloudy (Clear) Urine pH 6.0 (5.0 - 8.0) Ur Specific Flippin 1.015 (1.002-1.030) Urine Protein 100 H (Negative) mg/dl Urine Glucose (UA) 1000 H (Normal) mg/dl Urine Ketones 5 H (Negative) mg/dl Urine Occult Blood 10 H (Negative) /ul Urine Nitrite Negative (Negative) Urine Bilirubin Negative (Negative) mg/dL Urine Urobilinogen Normal (Normal) mg/dl Ur Leukocyte Esterase Negative (Negative) /ul Urine RBC 0-5 SEEN (0-5) /hpf Urine WBC 0 SEEN (0-5) /hpf Ur Squamous Epith Cells 0-5 SEEN (5-10) /hpf Urine Bacteria 0 SEEN (None Seen) /hpf Urine Mucus 0 SEEN (<or=2+) /hpf Assessment/Plan All Active Problems (Last Updated 09/02/17 @ 09:12 by Jory Ruiz) Shortness of breath (Acute) Abdominal pain (Acute) Acute pancreatitis (Resolved) Chest pain (Resolved) Hypokalemia (Resolved) 57 year female but extensive past medical history and recent history of surgery for right lower quadrant fistula about 2 weeks ago, presents with a complaint of fever 4 days duration, shortness of breath and a productive cough as well as mild increase in drainage from around the drain. 1. Sepsis due to health associated pneumonia and surgical site infection * Use incentive spirometry during his stay in the hospital but has not been using it afterwards. Has a cough productive of greenish yellow sputum and shortness of breath with assisted pleuritic chest pain bilaterally. * Had coarse crackles in left lower lung field. * On admission but increased to 22. * Has SIRS criteria 2/4, with focus of infection likely pneumonia and possible surgical site infection * qSOFA score: 1 * White cell count is 12.1 and lactic acid was 3.6. * blood cultures ordered; will order wound culture of surgical site also * CXR: degenrative processes, with no acute cardiopulmonary process * Chest CT: No evidence of PE, and minimal increased markings in posterior aspect of the right upper lobe which may represent atelectasis and or early infiltrate. * CT abdomen: Postoperative changes and multiple bowel loops in the central upper abdomen adherent to the undersurface of the retroperitoneum with assisted induration of subcutaneous fat at this level as well as a fistulous connection to the skin surface. No organized abscess. Left lower quadrant ostomy site free of complication. No solid organ abnormality. Previous cholecystectomy. * Received a dose of IV vancomycin 1.25, in the ED. * Admit to MedSurg unit with telemetry * Received a bolus of IV fluids normal saline 1 L in the ED. Will give another liter of normal saline and monitor urine output. will check urine urine output and continue fluids at rate as needed. * Will continue IV vancomycin with pharmacy to dose and give IV meropenem 1 g every 8. Patient allergic to penicillin hence use of IV meropenem. * will cycle lactic acid to see if it trends down. * surgical consult placed with Dr Fairchild * 2. Type 2 diabetes mellitus * On Lantus 80 units twice daily and aspart. * Accuchecks ACHS. Will hold Lantus in light of patient's low oral intake. * will monitor sugar, and resume ;antus as needed * 3. HTN * BP during review was in 200s systolic. On metoprolol; didnt take it this morning as she was not feeling well * will resume meds, and give IV hydralazine prn * 4. COPD * will give breathing treatments with atrovent. Will hold albuterol due to tachycardia * 5. CAD s/p stents and quadruple bypass * on statin, imdur and plavix; will continue * 6. History of ulcerative colitis s/p colectomy, with ileostomy bag in place: stable 7. DVT prophylaxis: heparin 8. GI prophylaxis: omeprazole Code status: full code. Time spent with patient and partner counseling about different types of CODE STATUS. Patient selected full code and expressed understanding of various types of CODE STATUS. This note was generated with [employer] dictation software. It may contain incorrect words, spelling, and punctuation that were not noted in checking the note before signing. Code Visit Inpatient E&M: 81238 Init Hosp L3
[2017-09-06 15:52] LABS: Lactic Acid 2.2 mmol/L (0.4-2.0)
--- NOTE | 2017-09-06 17:03 | PCM.CONS.B ---
- Consult Date of Consult: 09/06/17 - Reason for Consult Chief Complaint: asked by Dr. Whittignton to evaluate patient who had recent surgery at [facility] History of Present Illness: 57 y/o WF presents with shortness of breath and weakness and coughing She recently underwent surgery at [facility] - 08/19/17 -Exploratory laparotomy, lysis of adhesions, curettage and drainage of abscess Findings: intra-abdominal adhesions, no communication between the skin fistula track with intra-abdominal cavity. Fistula track opened - presence of previous non-absorbable suture causing an abscess A nicolasa drain was left in place. She states that she has had severe shortness of breath with weakness and severe coughing for the past four days. Has had fevers/chills. Has COPD with mixed obstructive/restrictive process found by preoperative evaluation of above. Diffusion capacity is normal. The patient states that she has had ulcerative colitis for 41 years. She had a colectomy in 1979. Now has left lower quadrant ileostomy. Other comorbidities includes CAD with OHS and CABG x 5 in 2012. Since then she has had 9 stents at [facility]. The patient still has anterior chest pain which is chronic in nature. It is not believed to be cardiac in origin. Echocardiogram from 08/05/17 demonstrates an ejection fraction of 67% with normal left ventricular function. Grade 1 diastolic dysfunction PAST MEDICAL HISTORY Back pain CAD (coronary artery disease) 08/18/2013 Chest pain at rest 08/21/2013 Dr. Wright, Pain Management CHF (congestive heart failure) ([facility]) 08/21/2013 Chronic abdominal wound infection CKD (chronic kidney disease) stage 3, GFR 30-59 ml/min 08/21/2013 COPD (chronic obstructive pulmonary disease) ([facility]) 08/18/2013 mixed obstructive and restrictive process, normal diffusion followed by Dr. Lazo Depression with anxiety 08/21/2013 History of Meniere's disease 1994 surgical treatment HTN (hypertension) 08/18/2013 Hyperlipidemia 08/18/2013 Hypoxemia 12/18/2013 Dr. Cherelle Lazo, pulmonary Migraine 08/21/2013 Neck pain ANKITA on CPAP 08/21/2013 Pulmonary hypertension, moderate to severe 08/21/2013 S/P total colectomy Ulcerative colitis, ileostomy. Type II or unspecified type diabetes mellitus without mention of complication, uncontrolled 08/18/2013 Ulcerative colitis ([facility]) PAST SURGICAL HISTORY CABG, ARTERY-VEIN, FOUR 2012 CABG, quadruple grafts DELIVERY ONLY 1988 , low transverse DEBRIDEMENT:CURRETATE, SKIN SUBCUTANEOUS 08/14/2014 chronic abdominal wound DECOMPRESS FACIAL NERVE,TOTAL 1993 Facial nerve decomp, 1993, Right side ILEOSTOMY 1983 LEFT HEART CATH,PERCUTANEOUS 07/10/2013 Cardiac cath, L heart LEFT HEART CATH,PERCUTANEOUS 09/04/2015 Cardiac cath, L heart LOCAL REVISION OF ILESTOMY 2008 STENT PLACEMENT,PERCUTAN,EACH 08/2012;09/2012; multiple TOTAL ABDOM HYSTERECTOMY 1990 Hysterectomy, CIRO, bilateral SO MEDICATIONS: LORazepam (ATIVAN) 1 mg tablet buprenorphine (BUTRANS) 5 mcg/hour pregabalin (LYRICA) 50 mg capsule atorvastatin (LIPITOR) 80 mg tablet insulin aspart (NOVOLOG) 100 unit/mL soln ondansetron (ZOFRAN) 4 mg tablet DULoxetine (CYMBALTA) 60 mg capsule isosorbide dinitrate (ISORDIL, SORBITRATE) 30 mg tablet furosemide (LASIX) 20 mg tablet magnesium oxide (MAG-OX) 400 mg tablet metoprolol tartrate, short acting, 50 mg tablet aspirin (ASPIRIN CHILDRENS) 81 mg chewable tablet nitroglycerin sublingual (NITROSTAT) 0.4 mg SL tablet clopidogrel (PLAVIX) 75 mg tablet ALLERGIES: Cinnamon, Dicyclomine, Azulfidine, Flagyl, Fluzone, Glucophage, Influenza Virus, Penicillins, Sulfa, Victoza REVIEW OF SYSTEMS: GEN :No fever, chills or sweats. NEURO :Denies syncope, WOLF. No seizures. No numbness or tingling EYES :No h/o uveitis, glaucoma, cataracts. Denies diplopia ENT :Denies sinusitis, rhinitis, post nasal drip or oral concerns. GI: Denies BM changes. No h/o ulcers, dysphagia or heartburn ENDO :Denies thyroid disease. HAS DM ON INSULIN X 10 YEARS CARD :No CP , palpitations, edema. No diagnosed heart disease CAD :No hematuria, kidney disease or bladder concerns Chronic kidney disease. DERM :Denies skin rash, flushing, or lesions MSK :Negative for swelling. HAS ARTHRITIS OF THE SPINE AND DISK DISEASE. CHELSI :Denies bruising, blood clots or swollen nodes EXT: Denies pedal edema, DVT PSYCH: Denies sleep disturbance or mood disorder Physical examination: Vital signs Temp 98.4F General WD/WN WF in no apparent distress, alert and oriented, not septic appearing HEENT Normocephalic. EOM intact with sclera clear and no icterus noted. Neck is supple with no jugular venous distention noted. Trachea is midline. Lungs clear to auscultation. normal breath sounds. No rales/rhonchi/wheezing noted. No labored breathing noted, such as retractions. No cough heard. Heart normal S1 and S2 auscultated. No rubs/clicks/murmurs noted. Normal size and location by auscultation. Abdomen soft and benign. Normal bowel sounds, left lower quadrant ostomy functioning, right lower quadrant with drain with paramedian incision, healing, healing midline incision Extremities no calf tenderness noted. No pitting edema noted. Genitourinary/Rectal deferred Skin normal skin integrity. Neurological non focal Psychological normal affect, patient is calm and appropriate Impression: s/p wound exploration respiratory disorder Discussion/Plan: I have discussed the above with the patient. No abdominal pathology requiring intervention at this time. Patient to follow up with her surgeon at [facility] September 13 I have answered all questions to the patients satisfaction and the patient has no further questions.
--- NOTE | 2017-09-06 17:15 | CON.PCM_ITS ---
- Consult Date of Consult: 09/06/17 - Reason for Consult Chief Complaint: asked by Dr. Whittington to evaluate patient who had recent surgery at [facility] History of Present Illness: 57 y/o WF presents with shortness of breath and weakness and coughing She recently underwent surgery at [facility] - 08/19/17 -Exploratory laparotomy, lysis of adhesions, curettage and drainage of abscess Findings: intra-abdominal adhesions, no communication between the skin fistula track with intra-abdominal cavity. Fistula track opened - presence of previous non-absorbable suture causing an abscess A nicolasa drain was left in place. She states that she has had severe shortness of breath with weakness and severe coughing for the past four days. Has had fevers/chills. Has COPD with mixed obstructive/restrictive process found by preoperative evaluation of above. Diffusion capacity is normal. The patient states that she has had ulcerative colitis for 41 years. She had a colectomy in 1979. Now has left lower quadrant ileostomy. Other comorbidities includes CAD with OHS and CABG x 5 in 2012. Since then she has had [address] [facility]. The patient still has anterior chest pain which is chronic in nature. It is not believed to be cardiac in origin. Echocardiogram from 08/05/17 demonstrates an ejection fraction of 67% with normal left ventricular function. Grade 1 diastolic dysfunction PAST MEDICAL HISTORY Back pain CAD (coronary artery disease) 08/18/2013 Chest pain at rest 08/21/2013 Dr. Wright, Pain Management CHF (congestive heart failure) ([facility]) 08/21/2013 Chronic abdominal wound infection CKD (chronic kidney disease) stage 3, GFR 30-59 ml/min 08/21/2013 COPD (chronic obstructive pulmonary disease) ([facility]) 08/18/2013 mixed obstructive and restrictive process, normal diffusion followed by Dr. Lazo Depression with anxiety 08/21/2013 History of Meniere's disease 1994 surgical treatment HTN (hypertension) 08/18/2013 Hyperlipidemia 08/18/2013 Hypoxemia 12/18/2013 Dr. Cherelle Lazo, pulmonary Migraine 08/21/2013 Neck pain ANKITA on CPAP 08/21/2013 Pulmonary hypertension, moderate to severe 08/21/2013 S/P total colectomy Ulcerative colitis, ileostomy. Type II or unspecified type diabetes mellitus without mention of complication , uncontrolled 08/18/2013 Ulcerative colitis ([facility]) PAST SURGICAL HISTORY CABG, ARTERY-VEIN, FOUR 2012 CABG, quadruple grafts DELIVERY ONLY 1988 , low transverse DEBRIDEMENT:CURRETATE, SKIN SUBCUTANEOUS 08/14/2014 chronic abdominal wound DECOMPRESS FACIAL NERVE,TOTAL 1993 Facial nerve decomp, 1993, Right side ILEOSTOMY 1983 LEFT HEART CATH,PERCUTANEOUS 07/10/2013 Cardiac cath, L heart LEFT HEART CATH,PERCUTANEOUS 09/04/2015 Cardiac cath, L heart LOCAL REVISION OF ILESTOMY 2008 STENT PLACEMENT,PERCUTAN,EACH 08/2012;09/2012; multiple TOTAL ABDOM HYSTERECTOMY 1990 Hysterectomy, CIRO, bilateral SO MEDICATIONS: LORazepam (ATIVAN) 1 mg tablet buprenorphine (BUTRANS) 5 mcg/hour pregabalin (LYRICA) 50 mg capsule atorvastatin (LIPITOR) 80 mg tablet insulin aspart (NOVOLOG) 100 unit/mL soln ondansetron (ZOFRAN) 4 mg tablet DULoxetine (CYMBALTA) 60 mg capsule isosorbide dinitrate (ISORDIL, SORBITRATE) 30 mg tablet furosemide (LASIX) 20 mg tablet magnesium oxide (MAG-OX) 400 mg tablet metoprolol tartrate, short acting, 50 mg tablet aspirin (ASPIRIN CHILDRENS) 81 mg chewable tablet nitroglycerin sublingual (NITROSTAT) 0.4 mg SL tablet clopidogrel (PLAVIX) 75 mg tablet ALLERGIES: Cinnamon, Dicyclomine, Azulfidine, Flagyl, Fluzone, Glucophage, Influenza Virus , Penicillins, Sulfa, Victoza REVIEW OF SYSTEMS: GEN :No fever, chills or sweats. NEURO :Denies syncope, WOLF. No seizures. No numbness or tingling EYES :No h/o uveitis, glaucoma, cataracts. Denies diplopia ENT :Denies sinusitis, rhinitis, post nasal drip or oral concerns. GI: Denies BM changes. No h/o ulcers, dysphagia or heartburn ENDO :Denies thyroid disease. HAS DM ON INSULIN X 10 YEARS CARD :No CP , palpitations, edema. No diagnosed heart disease CAD :No hematuria, kidney disease or bladder concerns Chronic kidney disease. DERM :Denies skin rash, flushing, or lesions MSK :Negative for swelling. HAS ARTHRITIS OF THE SPINE AND DISK DISEASE. CHELSI :Denies bruising, blood clots or swollen nodes EXT: Denies pedal edema, DVT PSYCH: Denies sleep disturbance or mood disorder Physical examination: Vital signs Temp 98.4F General WD/WN WF in no apparent distress, alert and oriented, not septic appearing HEENT Normocephalic. EOM intact with sclera clear and no icterus noted. Neck is supple with no jugular venous distention noted. Trachea is midline. Lungs clear to auscultation. normal breath sounds. No rales/rhonchi/ wheezing noted. No labored breathing noted, such as retractions. No cough heard. Heart normal S1 and S2 auscultated. No rubs/clicks/murmurs noted. Normal size and location by auscultation. Abdomen soft and benign. Normal bowel sounds, left lower quadrant ostomy functioning, right lower quadrant with drain with paramedian incision, healing, healing midline incision Extremities no calf tenderness noted. No pitting edema noted. Genitourinary/Rectal deferred Skin normal skin integrity. Neurological non focal Psychological normal affect, patient is calm and appropriate Impression: s/p wound exploration respiratory disorder Discussion/Plan: I have discussed the above with the patient. No abdominal pathology requiring intervention at this time. Patient to follow up with her surgeon at [facility] September 13 I have answered all questions to the patient?s satisfaction and the patient has no further questions.
[2017-09-06] MEDS: Calcium (Elemental) 500 MG Tablet PO (17:16)
[2017-09-06 17:20] LABS: Bedside Glucose 312 mg/dL (70-110)
[2017-09-06] MEDS: 0.9% Normal Saline 1,000 ML 999 ML IV (17:51)
[2017-09-06] MEDS: 0.9% Normal Saline 1,000 ML 150 ML IV (17:59)
[2017-09-06] MEDS: Ipratropium 0.5 MG/2.5 ML SOLUTION INHALATION ×2 (18:56→23:27)
[2017-09-06] MEDS: traMADol 50 MG Tablet PO (20:05)
[2017-09-06] MEDS: Heparin Injection (Vial) 5,000 UNIT/ML VIAL 5000 UNIT SC (22:01)
[2017-09-06] MEDS: DULoxetine Hcl 30 MG Capsule PO (22:02)
[2017-09-06] MEDS: Insulin Lispro 100 UNIT/ML INSULN.PEN SQ (22:03)
[2017-09-06] MEDS: Baclofen 10 MG Tablet PO (22:03)
[2017-09-06] MEDS: Isosorbide DN 30 MG Tablet PO (22:03)
[2017-09-06] MEDS: Atorvastatin Calcium 80 MG Tablet PO (22:04)
[2017-09-06] MEDS: Metoprolol Tartrate 50 MG Tablet 75 MG PO (22:04)
[2017-09-06] MEDS: Magnesium Oxide 400 MG Tablet PO (22:05)
[2017-09-06 22:10] LABS: Bedside Glucose 359 mg/dL (70-110)
[2017-09-06] MEDS: Glucerna Shake 120 ML LIQUID PO (22:12)
[2017-09-06] MEDS: Pregabalin 50 MG Capsule PO (22:12)
[2017-09-06] MEDS: LORazepam 0.5 MG Tablet PO (22:12)
[2017-09-06] MEDS: guaiFENesin 10 ML UDC (200MG/10ML) PO (22:12)
[2017-09-06 22:19] LABS: Lactic Acid 2.2 mmol/L (0.4-2.0)
[2017-09-07] VITALS (16 sets, daily range): BP systolic 112–135; BP diastolic 53–67; PULSE 57–94; RESP 16–20; TEMP 36.6–37.3; O2SAT 94–96
[2017-09-07] MEDS: Acetaminophen 325 MG Tablet 650 MG PO ×3 (00:48→22:37)
[2017-09-07] MEDS: 0.9% Normal Saline 1,000 ML 150 ML IV ×2 (00:48→09:36)
[2017-09-07 01:51] LABS: Reflex Lactate? Y
--- NOTE | 2017-09-07 02:05 | NURSING ---
agricultural technician called and asked this nurse to cancel lactic acid order, as it was refluxed automatically. Per Miranda, primary nurse, Dr. Covarrubias did not want any new orders for the previous lactic acid result of 2.2
[2017-09-07] MEDS: Ipratropium 0.5 MG/2.5 ML SOLUTION INHALATION ×6 (02:54→23:25)
[2017-09-07] MEDS: Metoprolol Tartrate 50 MG Tablet 75 MG PO ×3 (05:47→22:36)
[2017-09-07] MEDS: Heparin Injection (Vial) 5,000 UNIT/ML VIAL 5000 UNIT SC ×3 (05:48→22:33)
[2017-09-07] MEDS: Isosorbide DN 30 MG Tablet PO ×3 (05:49→22:34)
--- NOTE | 2017-09-07 06:00 | NURSING ---
Jose J Jean RN waste Buprenorphine patch down toilet d/t the fact that she was applying a new one.
--- NOTE | 2017-09-07 06:00 | NURSING ---
WASTED HOME BUTRANS PATCH BY FLUSHING DOWN THE COMMODE, WITNESSED BY SVETLANA PEÑA. NEW PATCH ON PER ORDER LEFT ARM.
[2017-09-07] MEDS: Insulin Lispro 100 UNIT/ML INSULN.PEN SQ ×4 (06:41→22:33)
[2017-09-07 06:50] LABS: Anion Gap 9 (5-15); BUN 16 mg/dL (7-18); Calcium,Total 8.6 mg/dL (8.5-10.1); Chloride 107 mmol/L (98-107); Creatinine, Serum 1.07 mg/dL (0.55-1.02); EST Glomerular Filtration Rate 56 mL/min (>60); Est Glom Filt Rate - Afr Amer 68 mL/min (>60); Estimated Creatinine Clearance 55.05 ml/min; Glucose 279 mg/dL (74-106); Potassium 4.5 mmol/L (3.5-5.1); Sodium Level 141 mmol/L (136-145)
[2017-09-07 06:54] LABS: Absolute Lymphocyte Count 1.86 X10^3/ul (0.83-4.51); Absolute Neutrophil Count 6.1 X10^3/uL (2.0-7.7); Basophil# 0.04 X10^3/uL; Basophil% 0.4 % (0-1); Eosinophil# 0.53 X10^3/uL; Eosinophils% 5.7 % (0-5); Hematocrit 31.9 % (37-47); Hemoglobin 10.1 g/dl (12.0-15.0); Lymphocyte # 1.86 X10^3/ul (4.0); Mean Corp Hgb Conc 31.7 g/gl (32-36); Mean Corpuscular Hgb 27.1 pg (27.0-32.0); Mean Corpuscular Volume 85.5 fL (81-99); Monocyte# 0.75 X10^3/uL; Monocyte% 8.1 % (0-10); Neutrophil # 6.07 X10^3/uL (2.7-7.7); Neutrophil % 65.4 % (47-70); Platelet Count 261 K/mm3 (150-450); RBC Distribution Width CV 15.3 % (11.6-14.6); Red Blood Count 3.73 M/mm3 (4.2-5.4); White Blood Count 9.3 K/mm3 (4.4-11.0)
[2017-09-07 06:55] LABS: Bedside Glucose 287 mg/dL (70-110)
[2017-09-07 06:55] LABS: POSITIVE COUNT NO; POSITIVE DIFFERENTIAL NO; POSITIVE MORPHOLOGY NO
--- NOTE | 2017-09-07 07:08 | PN_ITS ---
Subjective: Patient is a 57-year-old female with an extensive past medical history of CAD status post quadruple bypass and 9 stents, ulcerative colitis status post colectomy and has a ileostomy in place, COPD, hypertension, diabetes, hyperlipidemia, CKD 3 and gastroparesis. She was admitted on 04/14/17 with a complaint of fever shortness of breath and mild abdominal pain for 4 days prior to presentation. She had had a surgery for abdominal fistula on 19 August 2017 at [facility]. After removal of pooja by her primary care doctor, she started having above symptoms. She was managed for sepsis due to health associated pneumonia and possible surgical site infection. She received IV aztreonam and vancomycin in the ED and was continued on IV vancomycin and Zosyn upon admission. Seen and examined this morning. She feels much better. Cough is not productive now and is dry. She knows that she started having slightly increased drainage from site of incision yesterday. She has no tenderness or erythema there. Drainage from around insertion of drain and wound is scanty and nontender. She was reviewed by Dr. Mosqueda the surgeon yesterday and she advocated conservative management, for patient follow-up with her surgeons at [facility] upon discharge. Vital signs and labs from yesterday reviewed. Patient has remained stable. Vitals/I&O's: Vital Signs Temp Pulse Resp BP Pulse Ox 97.9 F 70 16 123/58 H 96 09/07/17 04:08 09/07/17 05:47 09/07/17 04:08 09/07/17 05:47 09/07/17 04:08 Oxygen Delivery Method Room Air Weight: 194 lb 7.163 oz Body Mass Index (BMI) 30.4 Intake and Output for Last 24 Hours 09/05/17 09/06/17 09/07/17 23:59 23:59 23:59 Intake Total 3156 / 3156 Output Total 300 / 300 1200 / 1200 Balance -300 / -300 1955 / 1955 General: Alert, Oriented x3, Cooperative, No apparent distress HEENT: Atraumatic, PERRLA, EOMI, Normocephalic Oral: Moist Mucosa Neck: Supple, No JVD, Negative Carotid Bruits Lungs: Clear to auscultation, Normal air movement, No rhonchi, No wheeze, No rales Cardiovascular: Regular rate, Regular Rhythm, Normal S1, Normal S2, No murmurs Abdomen: Bowel Sounds Present, Soft, Non Tender, - - Has minor erythema in upper area of surgical site, with minimal drainage and minimal erythema. Minimal drainage from around wound drain in situ in lower half of healing incision. ileostomy bag in left lower quadrant Extremities: No clubbing, No cyanosis, No edema, Capillary Refill Less than 3 Seconds Skin: No rashes Musculoskeletal: No Tenderness to Palpation of Joints or Extremities Lymphatic: No Cervical, Supraclavicular, or Inguinal Adenopathy Neurological: Cranial nerves II-XII grossly intact Psych/Mental Status: Normal Affect, Appropriate, Alert and oriented to time, place, person, mood and affect Laboratory Results 09/06/17 15:10: Lactic Acid 2.2 H 09/06/17 17:14: POC Glucose 312 H 09/06/17 21:29: Lactic Acid 2.2 H 09/06/17 21:58: POC Glucose 359 H 09/07/17 05:50: Sodium 141, Potassium 4.5, Chloride 107, Carbon Dioxide 25.0, Anion Gap 9, BUN 16, Creatinine 1.07 H, Estim Creat Clear Calc 55.05, Est GFR ( MDRD) Af Amer 68, Est GFR (MDRD) Non-Af 56 L, BUN/Creatinine Ratio 15.0, Glucose 279 H, Calcium 8.6 09/07/17 05:50: WBC 9.3, RBC 3.73 L, Hgb 10.1 L, Hct 31.9 L, MCV 85.5, MCH 27.1 , MCHC 31.7 L, RDW 15.3 H, RDW Differential 48.0 H, Plt Count 261, MPV 12.0, Immature Gran % (Auto) 0.400, Neut % (Auto) 65.4, Lymph % (Auto) 20.0, Hamlin % ( Auto) 8.1, Eos % (Auto) 5.7 H, Baso % (Auto) 0.4, Absolute Neuts (auto) 6.1, Absolute Lymphs (auto) 1.86, Total Counted Not Reportable 09/07/17 06:40: POC Glucose 287 H Current Medications Acetaminophen (Tylenol) 650 mg PO Q6H PRN PRN PRN Reason: PAIN Last Admin: 09/07/17 00:48 Dose: 650 mg Aspirin (Aspirin, Baby) 81 mg PO DAILY@0800 [facility] Atorvastatin Calcium (Lipitor) 80 mg PO QHS [facility] Last Admin: 09/06/17 22:04 Dose: 80 mg Baclofen (Lioresal) 10 mg PO QHS [facility] Last Admin: 09/06/17 22:03 Dose: 10 mg Calcium Carbonate (Os-Sammy 500) [facility] Last Admin: 09/06/17 17:16 Dose: 500 mg Cholecalciferol (Vitamin D) 2,000 unit PO DAILY [facility] Clopidogrel Bisulfate (Plavix) 75 mg PO DAILY [facility] Dextrose (D50w Syringe) 0 gm IV X1 PRN; Protocol PRN Reason: Hypoglycemia Duloxetine HCl (Cymbalta) 30 mg PO BID [facility] Last Admin: 09/06/17 22:02 Dose: 30 mg Furosemide (Lasix) 40 mg PO DAILY [facility] Glucagon () 1 mg IM .X1 PRN PRN Reason: Hypoglycemia Guaifenesin (Robitussin) 10 ml PO Q4H PRN PRN PRN Reason: COUGH Last Admin: 09/06/17 22:12 Dose: 10 ml Heparin Sodium (Porcine) (Heparin Na) 5,000 unit SC Q8 [facility] Last Admin: 09/07/17 05:48 Dose: 5,000 units Hydralazine HCl (Apresoline Iv) 10 mg IV Q6H PRN PRN PRN Reason: BLOOD PRESSURE ELEVATION Hydrocortisone (Hytone) 30 applic TOPICAL BID [facility] Last Admin: 09/06/17 22:06 Dose: Not Given Meropenem 500 mg/ Sodium (Chloride) 60 mls @ 100 mls/hr IV Q8 [facility] Last Admin: 09/07/17 05:48 Dose: 100 mls/hr Sodium Chloride () 1,000 mls @ 150 mls/hr IV .Q6H40M [facility] Stop: 09/07/17 14:54 Last Admin: 09/07/17 00:48 Dose: 150 mls/hr Vancomycin HCl 750 mg/ Sodium (Chloride) 265 mls @ 265 mls/hr IV Q12H [facility] Last Admin: 09/07/17 04:00 Dose: 265 mls/hr Insulin Glargine (Lantus (Bkc)) 80 units SC BID [facility] Insulin Human Lispro (Humalog Kwikpen (Bkc)) 0 unit SQ ACHS KIRSTEN PRN Reason: Protocol Last Admin: 09/07/17 06:41 Dose: 4 units Ipratropium Howard (Atrovent) 0.5 mg INHALATION Q4H.RT [facility] Last Admin: 09/07/17 02:54 Dose: 0.5 mg Isosorbide Dinitrate (Isordil) 30 mg PO TID [facility] Last Admin: 09/07/17 05:49 Dose: 30 mg Loperamide HCl (Imodium) 2 mg PO 4X/DAY PRN PRN PRN Reason: loose stool Lorazepam (Ativan) 0.5 mg PO QHS PRN PRN Reason: anxiety Last Admin: 09/06/17 22:12 Dose: 0.5 mg Magnesium Hydroxide (Milk Of Magnesia) 30 ml PO DAILY PRN PRN PRN Reason: Constipation Magnesium Oxide (Mag-Ox 400) 400 mg PO BID [facility] Last Admin: 09/06/17 22:05 Dose: 400 mg Metoprolol Tartrate (Lopressor (Beta Isaac)) 75 mg PO TID [facility] Last Admin: 09/07/17 05:47 Dose: 75 mg Miconazole Nitrate (Monistat-Derm, Micatin) 1 applic TOPICAL DAILY [facility] Nitroglycerin (Nitrostat) 0.4 mg SUBLINGUAL Q5M PRN PRN Reason: CARDIAC/CHEST PAIN Nutritional Formula (Lactose Free) (Glucerna Shake) 120 ml PO 4X/DAY [facility] Last Admin: 09/06/17 22:12 Dose: 120 ml Ondansetron HCl (Zofran Odt) 4 mg PO Q8H PRN PRN PRN Reason: NAUSEA/VOMITING Pantoprazole Sodium (Protonix) 20 mg PO DAILY [facility] Pharmacy Profile Note () 1 each NOTE X1 PRN PRN Reason: NOT SPECIFIED Pregabalin (Lyrica) 50 mg PO BID [facility] Last Admin: 09/06/17 22:12 Dose: 50 mg Sodium Chloride () 5 - 30 ml IV UD PRN PRN Reason: SALINE FLUSH Tramadol HCl (Ultram) 50 mg PO BID PRN PRN PRN Reason: PAIN Last Admin: 09/06/17 20:05 Dose: 50 mg Medical Necessity - Tobacco Use Smoking Status: Former smoker Assessment/Plan All Active Problems (Last Updated 09/02/17 @ 09:12 by Jory Ruiz) Shortness of breath (Acute) Abdominal pain (Acute) Acute pancreatitis (Resolved) Chest pain (Resolved) Hypokalemia (Resolved) 57 year female but extensive past medical history and recent history of surgery for right lower quadrant fistula about 2 weeks ago, presents with a complaint of fever 4 days duration, shortness of breath and a productive cough as well as mild increase in drainage from around the drain. 1. health associated pneumonia and surgical site infection * Was septic upon admission but SIRS criteria has now resolved. * Is much better today. Cough is no longer productive and is drying out. Lungs sound clear to auscultation as well. * Leukocytosis is resolved and white cell count is 9.3 today. Creatinine trended down to 1.07. * CXR: degenrative processes, with no acute cardiopulmonary process * Chest CT: No evidence of PE, and minimal increased markings in posterior aspect of the right upper lobe which may represent atelectasis and or early infiltrate. * CT abdomen: Postoperative changes and multiple bowel loops in the central upper abdomen adherent to the undersurface of the retroperitoneum with assisted induration of subcutaneous fat at this level as well as a fistulous connection to the skin surface. No organized abscess. Left lower quadrant ostomy site free of complication. No solid organ abnormality. Previous cholecystectomy. * On IV vancomycin and IV Zosyn. Today's date 2. Will continue. * blood Cultures ordered and still pending. * Dr. Fairchild the surgeon reviewed patient and advocates medical management for now. To follow-up with the [facility] upon discharge. * * 2. Type 2 diabetes mellitus * On Lantus 80 units twice daily and aspart. * fasting blood sugar today is 287 * Accuchecks ACHS. Lantus was held yesterday on admission in light of patient' s low oral intake. Has however remained hyperglycemic and so Lantus resumed. * 3. HTN * control has improved significantly * on metoprolol and iV hydralazine prn * * * 4. COPD * breathing treatments with atrovent. Will hold albuterol due to tachycardia * 5. CAD s/p stents and quadruple bypass * on statin, imdur and plavix * 6. History of ulcerative colitis s/p colectomy, with ileostomy bag in place: stable 7. DVT prophylaxis: heparin 8. GI prophylaxis: omeprazole Code status: full code. Disposition: for possible dc tomorrow if patient remains stable This note was generated with [employer] dictation software. It may contain incorrect words, spelling, and punctuation that were not noted in checking the note before signing. Code Visit Inpatient E&M: 01904 Subs Hosp L3
[2017-09-07] MEDS: Calcium (Elemental) 500 MG Tablet PO ×2 (09:36→17:21)
[2017-09-07] MEDS: Aspirin 81 MG TAB.CHEW PO (09:37)
[2017-09-07] MEDS: DULoxetine Hcl 30 MG Capsule PO ×2 (09:37→22:33)
[2017-09-07] MEDS: Hydrocortisone 2.5% Crm 30 APPLIC TOPICAL ×2 (09:38→22:34)
[2017-09-07] MEDS: Magnesium Oxide 400 MG Tablet PO ×2 (09:39→22:36)
[2017-09-07] MEDS: Furosemide 40 MG Tablet PO (09:39)
[2017-09-07] MEDS: Miconazole Nitrate Cream 1 APPLIC TOPICAL (09:39)
[2017-09-07] MEDS: Pantoprazole Sodium 20 MG Tablet PO (09:41)
[2017-09-07] MEDS: Clopidogrel Bisulfate 75 MG Tablet PO (09:41)
[2017-09-07] MEDS: Pregabalin 50 MG Capsule PO ×2 (09:46→22:36)
[2017-09-07] MEDS: Glucerna Shake 120 ML LIQUID PO ×3 (09:46→22:39)
[2017-09-07] MEDS: guaiFENesin 10 ML UDC (200MG/10ML) PO ×2 (10:24→23:09)
[2017-09-07 11:36] LABS: Bedside Glucose 363 mg/dL (70-110)
--- NOTE | 2017-09-07 13:35 | CASEMGMT ---
Addendum entered by Ulises Nelson 09/07/17 13:39: [facility] [place] is open 10-2pm tomorrow, September 08, 2017 Original Note: See RN CM Assessment Link. DC Plan: Home -Pt's pharmacy is closed on Wednesday, September 08, so would not be able to have prescriptions filled until September 09, 2017 -No needs identified per pt and her S.O. Azucena. Marielena NAVARRON RN ACM
[2017-09-07 14:35] LABS: Anion Gap 7 (5-15); BUN 17 mg/dL (7-18); BUN/Creat Ratio 14.5 RATIO (10-20); Calcium,Total 8.5 mg/dL (8.5-10.1); Chloride 104 mmol/L (98-107); Creatinine, Serum 1.17 mg/dL (0.55-1.02); EST Glomerular Filtration Rate 50 mL/min (>60); Est Glom Filt Rate - Afr Amer 61 mL/min (>60); Estimated Creatinine Clearance 50.35 ml/min; Glucose 367 mg/dL (74-106); Potassium 4.5 mmol/L (3.5-5.1); Sodium Level 137 mmol/L (136-145)
[2017-09-07 17:25] LABS: Bedside Glucose 401 mg/dL (70-110)
[2017-09-07 17:52] LABS: Anion Gap 7 (5-15); BUN 17 mg/dL (7-18); BUN/Creat Ratio 14.4 RATIO (10-20); Calcium,Total 8.4 mg/dL (8.5-10.1); Chloride 104 mmol/L (98-107); Creatinine, Serum 1.18 mg/dL (0.55-1.02); EST Glomerular Filtration Rate 50 mL/min (>60); Est Glom Filt Rate - Afr Amer 60 mL/min (>60); Estimated Creatinine Clearance 49.92 ml/min; Glucose 405 mg/dL (74-106); Potassium 4.5 mmol/L (3.5-5.1); Sodium Level 136 mmol/L (136-145)
[2017-09-07 21:46] LABS: Anion Gap 7 (5-15); BUN 17 mg/dL (7-18); BUN/Creat Ratio 13.9 RATIO (10-20); Calcium,Total 8.6 mg/dL (8.5-10.1); Chloride 102 mmol/L (98-107); Creatinine, Serum 1.22 mg/dL (0.55-1.02); EST Glomerular Filtration Rate 48 mL/min (>60); Est Glom Filt Rate - Afr Amer 58 mL/min (>60); Estimated Creatinine Clearance 48.28 ml/min; Glucose 383 mg/dL (74-106); Potassium 4.5 mmol/L (3.5-5.1); Sodium Level 135 mmol/L (136-145)
[2017-09-07] MEDS: Baclofen 10 MG Tablet PO (22:35)
[2017-09-07] MEDS: Atorvastatin Calcium 80 MG Tablet PO (22:36)
[2017-09-07] MEDS: LORazepam 0.5 MG Tablet PO (22:37)
[2017-09-07] MEDS: Ondansetron ODT 4 MG Tablet PO (23:09)
[2017-09-07 23:11] LABS: Bedside Glucose 332 mg/dL (70-110)
[2017-09-08] VITALS (7 sets, daily range): BP systolic 110–133; BP diastolic 56–64; PULSE 60–71; RESP 16–18; TEMP 36.6–36.7; O2SAT 93
[2017-09-08 03:47] LABS: Absolute Lymphocyte Count 2.49 X10^3/ul (0.83-4.51); Absolute Neutrophil Count 5.8 X10^3/uL (2.0-7.7); Basophil# 0.04 X10^3/uL; Basophil% 0.4 % (0-1); Eosinophil# 0.65 X10^3/uL; Eosinophils% 6.7 % (0-5); Hematocrit 30.4 % (37-47); Hemoglobin 9.7 g/dl (12.0-15.0); Lymphocyte # 2.49 X10^3/ul (4.0); Lymphocyte % 25.7 % (19-41); Mean Corp Hgb Conc 31.9 g/gl (32-36); Mean Corpuscular Hgb 27.2 pg (27.0-32.0); Mean Corpuscular Volume 85.2 fL (81-99); Mean Platelet Vol. 11.6 fl (6.2-12.0); Monocyte# 0.62 X10^3/uL; Monocyte% 6.4 % (0-10); Neutrophil # 5.78 X10^3/uL (2.7-7.7); Neutrophil % 59.7 % (47-70); POSITIVE COUNT NO; POSITIVE DIFFERENTIAL NO; POSITIVE MORPHOLOGY NO; Platelet Count 270 K/mm3 (150-450); RBC Distribution Width CV 14.8 % (11.6-14.6); RBC Distribution Width SD 46.6 fl (35.1-43.9); Red Blood Count 3.57 M/mm3 (4.2-5.4); White Blood Count 9.7 K/mm3 (4.4-11.0)
[2017-09-08 04:09] LABS: Vancomycin, Trough Level 11.6 ug/mL (5.0-15.0)
--- NOTE | 2017-09-08 04:28 | NURSING ---
Spoke with Shiva in pharmacy about 11.6 Vanco Trough. OK to hang current bag of Vanco that was sent to floor for 09/08 at 0400.
--- NOTE | 2017-09-08 04:54 | PCM.RX.CS ---
Consult Pharmacy has been consulted to manage selected antiobiotic: Vancomycin Type of Consult: Follow-up Suspected Infection: Pneumonia Prior Doses of Antibiotics Received/Current Regimen: Medications Vancomycin HCl (Vancomycin) 1,000 mg in 200 mls @ 200 mls/hr IV Q12H KIRSTEN Discontinued Medications Vancomycin HCl 750 mg/ Sodium (Chloride) 265 mls @ 265 mls/hr IV Q12H KIRSTEN Last Admin: 09/08/17 04:34 Dose: 265 mls/hr Labs: Sodium 135 mmol/L (136-145) L 09/07/17 21:14 Potassium 4.5 mmol/L (3.5-5.1) 09/07/17 21:14 Chloride 102 mmol/L (98-107) 09/07/17 21:14 Carbon Dioxide 26.0 mmol/L (21.0-32.0) 09/07/17 21:14 Anion Gap 7 (5-15) 09/07/17 21:14 BUN 17 mg/dL (7-18) 09/07/17 21:14 Creatinine 1.22 mg/dL (0.55-1.02) H 09/07/17 21:14 Est GFR (MDRD) Af Amer 58 mL/min (>60) L 09/07/17 21:14 Est GFR (MDRD) Non-Af 48 mL/min (>60) L 09/07/17 21:14 BUN/Creatinine Ratio 13.9 RATIO (10-20) 09/07/17 21:14 Glucose 383 mg/dL (74-106) H 09/07/17 21:14 Vancomycin Trough 11.6 ug/mL (5.0-15.0) 09/08/17 03:24 Microbiology: Microbiology 09/06/17 22:30 Wound Abcess - Abdominal Gram Stain - Final Weight used for dosin kg Estimated Creatinine Clearance: 48 Goal Trough: 15-20 mcg/mL Pharmacy Plan for Drug Dosing: Increased dose to 1000mg q12h due to trough level of 11.6 (goal 15-20). Conservative dose increase due to decreasing CrCl. Pharmacy Service will continue to monitor and adjust dosing as required. Follow-Up Labs: Trough Vancomycin Labs to be done on [date and time ordered]: 09/09/17 @4206
[2017-09-08] MEDS: 0.9% NaCl Peripheral Flush Adult/Peds IV (06:45)
[2017-09-08] MEDS: Metoprolol Tartrate 50 MG Tablet 75 MG PO (06:45)
[2017-09-08] MEDS: Isosorbide DN 30 MG Tablet PO (06:45)
[2017-09-08 07:06] LABS: Bedside Glucose 141 mg/dL (70-110)
--- NOTE | 2017-09-08 07:10 | PN_ITS ---
Subjective: Patient is a 57-year-old female with an extensive past medical history of CAD status post quadruple bypass and 9 stents, ulcerative colitis status post colectomy and has a ileostomy in place, COPD, hypertension, diabetes, hyperlipidemia, CKD 3 and gastroparesis. She was admitted on 04/14/17 with a complaint of fever shortness of breath and mild abdominal pain for 4 days prior to presentation. She had had a surgery for abdominal fistula on 19 August 2017 at [facility]. After removal of pooja by her primary care doctor, she started having above symptoms. She was managed for sepsis due to health associated pneumonia and possible surgical site infection. She received IV aztreonam and vancomycin in the ED and was continued on IV vancomycin and Zosyn upon admission. Patient seen and examined this morning. She only complains of mild discharge from surgical site, and she thinks that the discharge may have increased slightly. She denies any fever or chills, any cough or chest pain, shortness of breath, any abdominal pain, any diarrhea vomiting. Review of systems otherwise negative. Objective: Patient is a 57-year-old female with an extensive past medical history of CAD status post quadruple bypass and 9 stents, ulcerative colitis status post colectomy and has a ileostomy in place, COPD, hypertension, diabetes, hyperlipidemia, CKD 3 and gastroparesis. She was admitted on 04/14/17 with a complaint of fever shortness of breath and mild abdominal pain for 4 days prior to presentation. She had had a surgery for abdominal fistula on 19 August 2017 at [facility]. After removal of pooja by her primary care doctor, she started having above symptoms. She was managed for sepsis due to health associated pneumonia and possible surgical site infection. She received IV aztreonam and vancomycin in the ED and was continued on IV vancomycin and Zosyn upon admission. She remained stable. Vitals/I&O's: Vital Signs Temp Pulse Resp BP Pulse Ox 97.8 F 66 18 133/56 H 93 09/08/17 03:39 09/08/17 06:45 09/08/17 03:39 09/08/17 06:45 09/08/17 03:39 Oxygen Delivery Method Room Air Weight: 194 lb 7.163 oz Body Mass Index (BMI) 30.4 Intake and Output for Last 24 Hours 09/06/17 09/07/17 09/08/17 23:59 23:59 23:59 Intake Total 3156 / 3156 308 / 308 Output Total 300 / 300 1200 / 1200 Balance -300 / -300 1955 General: Alert, Oriented x3, Cooperative HEENT: Atraumatic, PERRLA, EOMI, Normocephalic Oral: Moist Mucosa Neck: Supple, No JVD, Negative Carotid Bruits Lungs: Clear to auscultation, Normal air movement, No rhonchi, No wheeze, No rales Cardiovascular: Regular rate, Regular Rhythm, Normal S1, Normal S2, No murmurs Abdomen: Bowel Sounds Present, Soft, Non Tender, Non-Distended, - - Scanty drainage from surgical site. Very minimal erythema and no tenderness. Extremities: No edema, Capillary Refill Less than 3 Seconds Skin: No rashes Musculoskeletal: No Tenderness to Palpation of Joints or Extremities, No Muscle Wasting Lymphatic: No Cervical, Supraclavicular, or Inguinal Adenopathy Neurological: Cranial nerves II-XII grossly intact, Motor Exam 5/5 strength throughout Psych/Mental Status: Normal Affect, Appropriate, Alert and oriented to time, place, person, mood and affect Microbiology Past 72 Hours 09/06/17 22:30 Wound Abcess - Abdominal Gram Stain - Final Laboratory Results 09/07/17 11:27: POC Glucose 363 H 09/07/17 13:15: Sodium 137, Potassium 4.5, Chloride 104, Carbon Dioxide 26.0, Anion Gap 7, BUN 17, Creatinine 1.17 H, Estim Creat Clear Calc 50.35, Est GFR ( MDRD) Af Amer 61, Est GFR (MDRD) Non-Af 50 L, BUN/Creatinine Ratio 14.5, Glucose 367 H, Calcium 8.5 09/07/17 17:03: Sodium 136, Potassium 4.5, Chloride 104, Carbon Dioxide 25.0, Anion Gap 7, BUN 17, Creatinine 1.18 H, Estim Creat Clear Calc 49.92, Est GFR ( MDRD) Af Amer 60, Est GFR (MDRD) Non-Af 50 L, BUN/Creatinine Ratio 14.4, Glucose 405 H, Calcium 8.4 L 09/07/17 17:16: POC Glucose 401 H 09/07/17 21:14: Sodium 135 L, Potassium 4.5, Chloride 102, Carbon Dioxide 26.0, Anion Gap 7, BUN 17, Creatinine 1.22 H, Estim Creat Clear Calc 48.28, Est GFR ( MDRD) Af Amer 58 L, Est GFR (MDRD) Non-Af 48 L, BUN/Creatinine Ratio 13.9, Glucose 383 H, Calcium 8.6 09/07/17 22:19: POC Glucose 332 H 09/08/17 03:24: Vancomycin Trough 11.6 09/08/17 03:24: WBC 9.7, RBC 3.57 L, Hgb 9.7 L, Hct 30.4 L, MCV 85.2, MCH 27.2, MCHC 31.9 L, RDW 14.8 H, RDW Differential 46.6 H, Plt Count 270, MPV 11.6, Immature Gran % (Auto) 1.100 H, Neut % (Auto) 59.7, Lymph % (Auto) 25.7, Esmeralda % (Auto) 6.4, Eos % (Auto) 6.7 H, Baso % (Auto) 0.4, Absolute Neuts (auto) 5.8, Absolute Lymphs (auto) 2.49, Total Counted Not Reportable 09/08/17 06:42: POC Glucose 141 H Current Medications Acetaminophen (Tylenol) 650 mg PO Q6H PRN PRN PRN Reason: PAIN Last Admin: 09/07/17 22:37 Dose: 650 mg Aspirin (Aspirin, Baby) 81 mg PO DAILY@0800 [facility] Last Admin: 09/07/17 09:37 Dose: 81 mg Atorvastatin Calcium (Lipitor) 80 mg PO QHS [facility] Last Admin: 09/07/17 22:36 Dose: 80 mg Baclofen (Lioresal) 10 mg PO QHS [facility] Last Admin: 09/07/17 22:35 Dose: 10 mg Calcium [facility] ([facility]my 500) [facility] Last Admin: 09/07/17 17:21 Dose: 500 mg Cholecalciferol (Vitamin D) 2,000 unit PO DAILY [facility] Last Admin: 09/07/17 09:41 Dose: 2,000 unit Clopidogrel Bisulfate (Plavix) 75 mg PO DAILY [facility] Last Admin: 09/07/17 09:41 Dose: 75 mg Dextrose (D50w Syringe) 0 gm IV X1 PRN; Protocol PRN Reason: Hypoglycemia Duloxetine HCl (Cymbalta) 30 mg PO BID [facility] Last Admin: 09/07/17 22:33 Dose: 30 mg Furosemide (Lasix) 40 mg PO DAILY [facility] Last Admin: 09/07/17 09:39 Dose: 40 mg Glucagon () 1 mg IM .X1 PRN PRN Reason: Hypoglycemia Guaifenesin (Robitussin) 10 ml PO Q4H PRN PRN PRN Reason: COUGH Last Admin: 09/07/17 23:09 Dose: 10 ml Heparin Sodium (Porcine) (Heparin Na) 5,000 unit SC Q8 [facility] Last Admin: 09/08/17 06:43 Dose: Not Given Hydralazine HCl (Apresoline Iv) 10 mg IV Q6H PRN PRN PRN Reason: BLOOD PRESSURE ELEVATION Hydrocortisone (Hytone) 30 applic TOPICAL BID [facility] Last Admin: 09/07/17 22:34 Dose: 30 applicatio Meropenem 500 mg/ Sodium (Chloride) 60 mls @ 100 mls/hr IV Q8 [facility] Last Admin: 09/08/17 06:44 Dose: 100 mls/hr Vancomycin HCl (Vancomycin) 1,000 mg in 200 mls @ 200 mls/hr IV Q12H [facility] Insulin Glargine (Lantus (Bkc)) 80 units SC BID [facility] Last Admin: 09/07/17 22:35 Dose: 80 u Insulin Human Lispro (Humalog Kwikpen (Bkc)) 0 unit SQ ACHS [facility] PRN Reason: Protocol Last Admin: 09/08/17 06:43 Dose: Not Given Ipratropium Parnell (Atrovent) 0.5 mg INHALATION Q4H.RT [facility] Last Admin: 09/08/17 03:30 Dose: Not Given Isosorbide Dinitrate (Isordil) 30 mg PO TID [facility] Last Admin: 09/08/17 06:45 Dose: 30 mg Loperamide HCl (Imodium) 2 mg PO 4X/DAY PRN PRN PRN Reason: loose stool Lorazepam (Ativan) 0.5 mg PO QHS PRN PRN Reason: anxiety Last Admin: 09/07/17 22:37 Dose: 0.5 mg Magnesium Hydroxide (Milk Of Magnesia) 30 ml PO DAILY PRN PRN PRN Reason: Constipation Magnesium Oxide (Mag-Ox 400) 400 mg PO BID [facility] Last Admin: 09/07/17 22:36 Dose: 400 mg Metoprolol Tartrate (Lopressor (Beta Isaac)) 75 mg PO TID [facility] Last Admin: 09/08/17 06:45 Dose: 75 mg Miconazole Nitrate (Monistat-Derm, Micatin) 1 applic TOPICAL DAILY [facility] Last Admin: 09/07/17 09:39 Dose: 1 applic Nitroglycerin (Nitrostat) 0.4 mg SUBLINGUAL Q5M PRN PRN Reason: CARDIAC/CHEST PAIN Nutritional Formula (Lactose Free) (Glucerna Shake) 120 ml PO 4X/DAY [facility] Last Admin: 09/07/17 22:39 Dose: 120 ml Ondansetron HCl (Zofran Odt) 4 mg PO Q8H PRN PRN PRN Reason: NAUSEA/VOMITING Last Admin: 09/07/17 23:09 Dose: 4 mg Pantoprazole Sodium (Protonix) 20 mg PO DAILY [facility] Last Admin: 09/07/17 09:41 Dose: 20 mg Pharmacy Profile Note () 1 each NOTE X1 PRN PRN Reason: NOT SPECIFIED Pregabalin (Lyrica) 50 mg PO BID [facility] Last Admin: 09/07/17 22:36 Dose: 50 mg Sodium Chloride () 5 - 30 ml IV UD PRN PRN Reason: SALINE FLUSH Last Admin: 09/08/17 06:45 Dose: 10 ml Medical Necessity - Tobacco Use Smoking Status: Former smoker Assessment/Plan All Active Problems (Last Updated 09/02/17 @ 09:12 by Jory Ruiz) Shortness of breath (Acute) Abdominal pain (Acute) Acute pancreatitis (Resolved) Chest pain (Resolved) Hypokalemia (Resolved) 57 year female but extensive past medical history and recent history of surgery for right lower quadrant fistula about 2 weeks ago, presents with a complaint of fever 4 days duration, shortness of breath and a productive cough as well as mild increase in drainage from around the drain. 1. health associated pneumonia and surgical site infection * Resolving. Patient has no complaints today. Still has dry cough but is much better. * Leukocytosis has resolved and a stay down. * Still on IV vancomycin and IV Zosyn. Today's day 3. * Blood culture showed no growth after 48 hours. * wound Gram stain showed 1+ white cells and no organisms. Wound culture still pending. * Minimal drainage from wound site. Very minimal erythema no tenderness. * Surgery on board. Evaluated patient and advocates medical management. * Will DC home today on PO doxycycline 100mg bid x 5 days. Up with PCP and general surgeon in one week * 2. Type 2 diabetes mellitus * On Lantus 80 units twice daily and aspart. * accuchecks ACHS. On high dose ISS * * 3. HTN * controlled * on metoprolol and iV hydralazine prn * 4. COPD * breathing treatments with atrovent. * 5. CAD s/p stents and quadruple bypass * on statin, imdur and plavix * 6. History of ulcerative colitis s/p colectomy, with ileostomy bag in place: stable 7. DVT prophylaxis: heparin 8. GI prophylaxis: omeprazole Code status: full code. Disposition: for dc today on doxycycline 100 mg twice daily for 5 days.. to follow up with PCP and general surgeon at [facility] This note was generated with [employer] dictation software. It may contain incorrect words, spelling, and punctuation that were not noted in checking the note before signing. Code Visit Inpatient E&M: 46938 Subs Hosp L3
[2017-09-08] MEDS: Ipratropium 0.5 MG/2.5 ML SOLUTION INHALATION (07:14)
[2017-09-08] MEDS: Magnesium Oxide 400 MG Tablet PO (08:42)
[2017-09-08] MEDS: Calcium (Elemental) 500 MG Tablet PO (08:42)
[2017-09-08] MEDS: Aspirin 81 MG TAB.CHEW PO (08:43)
[2017-09-08] MEDS: DULoxetine Hcl 30 MG Capsule PO (08:43)
[2017-09-08] MEDS: Furosemide 40 MG Tablet PO (08:44)
[2017-09-08] MEDS: Pantoprazole Sodium 20 MG Tablet PO (08:46)
[2017-09-08] MEDS: Clopidogrel Bisulfate 75 MG Tablet PO (08:46)
[2017-09-08] MEDS: Hydrocortisone 2.5% Crm 30 APPLIC TOPICAL (08:47)
[2017-09-08] MEDS: Miconazole Nitrate Cream 1 APPLIC TOPICAL (08:47)
[2017-09-08] MEDS: Pregabalin 50 MG Capsule PO (08:53)
--- NOTE | 2017-09-08 10:48 | PCM.DC ---
You will use the following diet at home:: Cardiac Your food should be the consistency of: Regular Your liquids should be the consistency of: Regular/Thin Discharge Activity: Return to Normal Activity May resume sexual activity in: No Restrictions Weight Bearing Status: Weight bearing as tolerated Call your doctor if your incision/area has: Continuous Slow Oozing, Sudden Increased Bleeding, Increased Pain/ Swelling, Increased Redness, Foul Smelling Discharge, Swelling at the incision site Call your doctor if you observe: Fever of 101 or Higher Cleanse incision/area with: Keep Dressing Clean & Dry Allergies/Adverse Reactions: Allergies cinnamon [Cinnamon] Allergy (Verified 09/06/17 09:56) Anaphylaxis Influenza Virus Vaccines Allergy (Verified 09/06/17 09:56) Shortness of breath liraglutide [From Victoza] Allergy (Verified 09/06/17 09:56) Anaphylaxis metronidazole [From Flagyl] Allergy (Verified 09/06/17 09:56) Hives Metronidazole HCl [From Flagyl] Allergy (Verified 09/06/17 09:56) Hives Penicillins Allergy (Verified 09/06/17 09:56) Hives Sulfa (Sulfonamide Antibiotics) Allergy (Verified 09/06/17 09:56) Hives ciprofloxacin [From Cipro] Adverse Reaction (Verified 09/06/17 09:56) Nausea codeine Adverse Reaction (Verified 09/06/17 09:56) Stops Ileostomy dicyclomine HCl [From Bentyl] Adverse Reaction (Verified 09/06/17 09:56) Nausea metformin HCl [From Glucophage] Adverse Reaction (Verified 09/06/17 09:56) Nausea Ncwmucy-Fyv-Rev Reductase Inhibitor Adverse Reaction (Verified 09/06/17 09:56) Nausea/joints ache Medications to take at Discharge Aspirin [Aspirin, Baby] 81 mg PO DAILY@0800 01/21/15 Atorvastatin Calcium [Lipitor] 80 mg PO QHS 01/21/15 Clopidogrel Bisulfate [Plavix] 75 mg PO DAILY 01/21/15 Magnesium Oxide [Mag-Ox 400] 400 mg PO BID 01/21/15 Metoprolol Tartrate [Lopressor (beta esha)] 75 mg PO TID 01/21/15 Isosorbide DN [Isordil] 30 mg PO TID 09/03/16 Ondansetron HCl [Zofran] 4 mg PO Q8H PRN PRN #20 tab 09/05/16 Baclofen 10 mg PO QHS 11/24/16 Calcium Carbonate [Calcium] 600 mg PO BID 11/24/16 Cholecalciferol (Vitamin D3) [Vitamin D3] 2,000 unit PO DAILY 11/24/16 loperamide 2 mg tablet 2 mg PO 4X/DAY PRN PRN tab 02/12/17 omeprazole 20 mg capsule,delayed release 20 mg PO DAILY 02/12/17 insulin aspart U-100 100 unit/mL subcutaneous pen 20 - 40 units SC TIDCM ml 03/23/17 miconazole nitrate 2 % topical powder 1 applic TOPICAL DAILY 03/23/17 tramadol 50 mg tablet 50 mg PO BID PRN PRN tab 05/05/17 Hydrocortisone 1 applic TOPICAL BID 06/02/17 nitroglycerin 0.4 mg sublingual tablet 0.4 mg SUBLINGUAL Q5M PRN #25 tab 06/08/17 buprenorphine 5 mcg/hour weekly transdermal patch 1 patch TRANSDERMAL QWEEK 07/02/17 Furosemide [Lasix] 40 mg PO DAILY 07/07/17 lorazepam 0.5 mg tablet 0.5 mg PO QHS PRN #30 tab 08/04/17 pregabalin 50 mg capsule 50 mg PO BID #60 cap 08/04/17 insulin glargine (U-100) 100 unit/mL (3 mL) subcutaneous pen 80 units SC BID ml 09/02/17 Albuterol Sulfate [Ventolin Hfa] 2 puff INHALATION Q6H PRN 09/06/17 Duloxetine Hcl [Cymbalta] 30 mg PO BID 09/06/17 Pen Needle, Diabetic [Unifine Pentips Plus] 1 ndl .ROUTE .MEDSUPPLY 09/06/17 Doxycycline 100 mg PO BID 5 Days #10 cap 09/08/17 The following prescriptions were given: Doxycycline 100 mg PO BID 5 Days #10 cap Primary Care Physician: Mala Mcgrath MD [Primary Care Provider] - Please follow up with your Primary Care Physician in: one week Test Results: When: please follow up with general surgeon at [facility] on September 13 Proposed Discharge Date: 09/08/17
--- NOTE | 2017-09-08 10:51 | DS.PCM_ITS ---
Discharge Date and Diagnosis Date of Admission: 09/06/17 Date of Discharge: 09/08/17 - Primary Discharge Diagnosis sepsis due to health associated pneumonia surgical site infection - Secondary Discharge Diagnosis Chronic Problems (Last Updated 09/02/17 @ 09:12 by Jory Ruiz) Multiple falls (Chronic) Syncope (Chronic) Vertigo (Chronic) Chronic renal insufficiency (Chronic) Sleep apnea (Chronic) Menieres disease (Chronic) Ulcerative colitis (Chronic) Ileostomy status (Chronic) Surgical wound dehiscence (Chronic) CAD (coronary artery disease) (Chronic) Hyperlipidemia (Chronic) Continues on statin without side effect. Reports taking as directed. No recent labs noted. Diarrhea (Chronic) Anemia of chronic renal failure, stage 3 (moderate) (Chronic) Obstructive sleep apnea (Chronic) Psoriasis (Chronic) Heart failure with preserved ejection fraction (Chronic) Benign essential HTN (Chronic) Depression (Chronic) DM2 (diabetes mellitus, type 2) (Chronic) Continues to have abdominal pain and stress. Bp actually fairly good today. Has been scheduled for abdominal surgery at [facility]. Is having some memory loss and has seen neurologist. FCHL (familial combined hyperlipidemia) (Chronic) Ulcerative colitis (Chronic) Status post ileostomy Hx of coronary artery disease (Chronic) Status post CABG, failed, status post multiple stents. Pulmonary hypertension (Chronic) History of coronary artery stent placement (Chronic ~2012) Mid LAD and Cx 2012, D1 and prox OM1 2012, Prox SVG, Distal SVG to the Mid OM 2012 S/P CABG (coronary artery bypass graft) (Chronic ~2012) JONES to LAD, SVG diag, SVG to OM, SVG to left PDA Chronic respiratory failure (Chronic) COPD (chronic obstructive pulmonary disease) (Chronic) Hospital Course and Treatment Imaging Results: Diagnostic Data Chest X-Ray 09/06/17 10:15 IMPRESSION: Degenerative changes, as described above. No demonstrated acute cardiopulmonary process. Electronically Signed: Leoncio Lopez MD at 11:10 EDT , Service support , Abdomen/Pelvis CT 09/06/17 10:17 IMPRESSION: Postoperative changes noted in multiple bowel loops in the central upper abdomen which are adherent to the undersurface of the peritoneum there is associated induration of the subcutaneous fat at this level as well as a fistulous connection to the skin surface. There is no organized abscess. Left lower quadrant ostomy site free of complication a right lower quadrant ostomy site has been surgically closed. No suspicious solid organ abnormality, previous cholecystectomy Degenerative bony changes Electronically Signed: Leoncio Lopez MD at 11:51 EDT , Service support , Chest CTA 09/06/17 12:14 IMPRESSION: Minimal increased markings in the posterior aspect of the right upper lobe as it abuts the minor fissure. 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 She was admitted on 09/06/17 with a complaint of fever shortness of breath and mild abdominal pain for 4 days prior to presentation. She had had surgery for abdominal fistula on 19 August 2017 at [facility]. After removal of pooja by her primary care doctor, she started having above symptoms. She was managed for sepsis due to health associated pneumonia and surgical site infection. She received IV aztreonam and vancomycin in the ED and was continued on IV vancomycin and Zosyn upon admission. white cell Count was initially elevated at 12.1 but trended down to 9.7. Blood Cultures showed no growth after 48 hours. Wound cultures grew 1+ gram-positive cocci suggestive of a diphtheroid likely skin contamination. Patient remained on IV vancomycin and IV Zosyn and improved significantly. She was reviewed by general surgery who did not think that is the slight drainage from the surgical site needed any intervention and advocated that she continued to follow-up with her general surgeon at [facility]. Discharge medications reviewed and reconciled. She remained stable and was discharged on 09/08/2017 on p.o. doxycycline 100 mg twice daily for 5 days. Patient counseled extensively that if she noticed increased drainage, pain, redness and tenderness as well as swelling at site of surgery, she was called her PCP and surgeon immediately. She is to follow-up with her primary care doctor in 1 week and with her general surgeon at [facility] on September. Microbiology Past 72 Hours 09/06/17 22:30 Gram Stain - Final Wound Abcess - Abdominal Wound Culture - Final Gram positive regina 09/06/17 10:30 Blood Culture - Preliminary Blood Culture (Wb) - Right Forearm No growth in 48 hours. 09/06/17 10:35 Blood Culture - Preliminary Blood Culture (Wb) - Left Forearm No growth in 48 hours. Laboratory Tests Past 24 Hrs 09/07/17 09/07/17 09/07/17 13:15 17:03 21:14 WBC RBC Hgb Hct MCV MCH MCHC RDW RDW Differential Plt Count MPV Immature Gran % (Auto) Neut % (Auto) Lymph % (Auto) Slope % (Auto) Eos % (Auto) Baso % (Auto) Absolute Neuts (auto) Absolute Lymphs (auto) Total Counted Sodium 137 136 135 L Potassium 4.5 4.5 4.5 Chloride 104 104 102 Carbon Dioxide 26.0 25.0 26.0 Anion Gap 7 7 7 BUN 17 17 17 Creatinine 1.17 H 1.18 H 1.22 H Estim Creat Clear Calc 50.35 49.92 48.28 Est GFR (MDRD) Af Amer 61 60 58 L Est GFR (MDRD) Non-Af 50 L 50 L 48 L BUN/Creatinine Ratio 14.5 14.4 13.9 Glucose 367 H 405 H 383 H Calcium 8.5 8.4 L 8.6 Vancomycin Trough 09/08/17 09/08/17 03:24 03:24 WBC 9.7 RBC 3.57 L Hgb 9.7 L Hct 30.4 L MCV 85.2 MCH 27.2 MCHC 31.9 L RDW 14.8 H RDW Differential 46.6 H Plt Count 270 MPV 11.6 Immature Gran % (Auto) 1.100 H Neut % (Auto) 59.7 Lymph % (Auto) 25.7 Slope % (Auto) 6.4 Eos % (Auto) 6.7 H Baso % (Auto) 0.4 Absolute Neuts (auto) 5.8 Absolute Lymphs (auto) 2.49 Total Counted Not Reportable Sodium Potassium Chloride Carbon Dioxide Anion Gap BUN Creatinine Estim Creat Clear Calc Est GFR (MDRD) Af Amer Est GFR (MDRD) Non-Af BUN/Creatinine Ratio Glucose Calcium Vancomycin Trough 11.6 Discharge Diet: Low fat/ Low Cholesterol Discharge Activity: Return to Normal Activity May resume sexual activity in: No Restrictions Weight Bearing Status: Weight bearing as tolerated Call your doctor if your incision/area has: Continuous Slow Oozing, Sudden Increased Bleeding, Increased Pain/ Swelling, Increased Redness, Foul Smelling Discharge, Swelling at the incision site Call your doctor if you observe: Fever of 101 or Higher Cleanse incision/area with: Keep Dressing Clean & Dry Home Medications: Medications to take at Discharge Aspirin [Aspirin, Baby] 81 mg PO DAILY@0800 01/21/15 Atorvastatin Calcium [Lipitor] 80 mg PO QHS 01/21/15 Clopidogrel Bisulfate [Plavix] 75 mg PO DAILY 01/21/15 Magnesium Oxide [Mag-Ox 400] 400 mg PO BID 01/21/15 Metoprolol Tartrate [Lopressor (beta esha)] 75 mg PO TID 01/21/15 Isosorbide DN [Isordil] 30 mg PO TID 09/03/16 Ondansetron HCl [Zofran] 4 mg PO Q8H PRN PRN #20 tab 09/05/16 Baclofen 10 mg PO QHS 11/24/16 Calcium Carbonate [Calcium] 600 mg PO BID 11/24/16 Cholecalciferol (Vitamin D3) [Vitamin D3] 2,000 unit PO DAILY 11/24/16 loperamide 2 mg tablet 2 mg PO 4X/DAY PRN PRN tab 02/12/17 omeprazole 20 mg capsule,delayed release 20 mg PO DAILY 02/12/17 insulin aspart U-100 100 unit/mL subcutaneous pen 20 - 40 units SC TIDCM ml miconazole nitrate 2 % topical powder 1 applic TOPICAL DAILY 03/23/17 tramadol 50 mg tablet 50 mg PO BID PRN PRN tab 05/05/17 Hydrocortisone 1 applic TOPICAL BID 06/02/17 nitroglycerin 0.4 mg sublingual tablet 0.4 mg SUBLINGUAL Q5M PRN #25 tab buprenorphine 5 mcg/hour weekly transdermal patch 1 patch TRANSDERMAL QWEEK Furosemide [Lasix] 40 mg PO DAILY 07/07/17 lorazepam 0.5 mg tablet 0.5 mg PO QHS PRN #30 tab 08/04/17 pregabalin 50 mg capsule 50 mg PO BID #60 cap 08/04/17 insulin glargine (U-100) 100 unit/mL (3 mL) subcutaneous pen 80 units SC BID ml 09/02/17 Albuterol Sulfate [Ventolin Hfa] 2 puff INHALATION Q6H PRN 09/06/17 Duloxetine Hcl [Cymbalta] 30 mg PO BID 09/06/17 Pen Needle, Diabetic [Unifine Pentips Plus] 1 ndl .ROUTE .MEDSUPPLY 09/06/17 Doxycycline 100 mg PO BID 5 Days #10 cap 09/08/17 Following Prescrptions Were Given to Patient: Doxycycline 100 mg PO BID 5 Days #10 cap Primary Care Physician: Mala Mcgrath MD [Primary Care Provider] - Please follow up with your Primary Care Physician in: one week When: please follow up with general surgeon at [facility] on September 13 Disposition: Home Minutes spent on discharge:: 45 Patient Condition:: Good Medical Necessity - Tobacco Use Smoking Status: Former smoker Meaningful Use Info Meaningful Use Diagnoses (Choose all that apply): None applicable Code Visit Inpatient E&M: 49607 Disch Hosp
--- NOTE | 2017-09-08 10:51 | DCINST_ITS ---
You will use the following diet at home:: Cardiac Your food should be the consistency of: Regular Your liquids should be the consistency of: Regular/Thin Discharge Activity: Return to Normal Activity May resume sexual activity in: No Restrictions Weight Bearing Status: Weight bearing as tolerated Call your doctor if your incision/area has: Continuous Slow Oozing, Sudden Increased Bleeding, Increased Pain/ Swelling, Increased Redness, Foul Smelling Discharge, Swelling at the incision site Call your doctor if you observe: Fever of 101 or Higher Cleanse incision/area with: Keep Dressing Clean & Dry Allergies/Adverse Reactions: Allergies cinnamon [Cinnamon] Allergy (Verified 09/06/17 09:56) Anaphylaxis Influenza Virus Vaccines Allergy (Verified 09/06/17 09:56) Shortness of breath liraglutide [From Victoza] Allergy (Verified 09/06/17 09:56) Anaphylaxis metronidazole [From Flagyl] Allergy (Verified 09/06/17 09:56) Hives Metronidazole HCl [From Flagyl] Allergy (Verified 09/06/17 09:56) Hives Penicillins Allergy (Verified 09/06/17 09:56) Hives Sulfa (Sulfonamide Antibiotics) Allergy (Verified 09/06/17 09:56) Hives ciprofloxacin [From Cipro] Adverse Reaction (Verified 09/06/17 09:56) Nausea codeine Adverse Reaction (Verified 09/06/17 09:56) Stops Ileostomy dicyclomine HCl [From Bentyl] Adverse Reaction (Verified 09/06/17 09:56) Nausea metformin HCl [From Glucophage] Adverse Reaction (Verified 09/06/17 09:56) Nausea Rmkrtkj-Giw-Mcp Reductase Inhibitor Adverse Reaction (Verified 09/06/17 09:56) Nausea/joints ache Medications to take at Discharge Aspirin [Aspirin, Baby] 81 mg PO DAILY@0800 01/21/15 Atorvastatin Calcium [Lipitor] 80 mg PO QHS 01/21/15 Clopidogrel Bisulfate [Plavix] 75 mg PO DAILY 01/21/15 Magnesium Oxide [Mag-Ox 400] 400 mg PO BID 01/21/15 Metoprolol Tartrate [Lopressor (beta esha)] 75 mg PO TID 01/21/15 Isosorbide DN [Isordil] 30 mg PO TID 09/03/16 Ondansetron HCl [Zofran] 4 mg PO Q8H PRN PRN #20 tab 09/05/16 Baclofen 10 mg PO QHS 11/24/16 Calcium Carbonate [Calcium] 600 mg PO BID 11/24/16 Cholecalciferol (Vitamin D3) [Vitamin D3] 2,000 unit PO DAILY 11/24/16 loperamide 2 mg tablet 2 mg PO 4X/DAY PRN PRN tab 02/12/17 omeprazole 20 mg capsule,delayed release 20 mg PO DAILY 02/12/17 insulin aspart U-100 100 unit/mL subcutaneous pen 20 - 40 units SC TIDCM ml miconazole nitrate 2 % topical powder 1 applic TOPICAL DAILY 03/23/17 tramadol 50 mg tablet 50 mg PO BID PRN PRN tab 05/05/17 Hydrocortisone 1 applic TOPICAL BID 06/02/17 nitroglycerin 0.4 mg sublingual tablet 0.4 mg SUBLINGUAL Q5M PRN #25 tab buprenorphine 5 mcg/hour weekly transdermal patch 1 patch TRANSDERMAL QWEEK Furosemide [Lasix] 40 mg PO DAILY 07/07/17 lorazepam 0.5 mg tablet 0.5 mg PO QHS PRN #30 tab 08/04/17 pregabalin 50 mg capsule 50 mg PO BID #60 cap 08/04/17 insulin glargine (U-100) 100 unit/mL (3 mL) subcutaneous pen 80 units SC BID ml 09/02/17 Albuterol Sulfate [Ventolin Hfa] 2 puff INHALATION Q6H PRN 09/06/17 Duloxetine Hcl [Cymbalta] 30 mg PO BID 09/06/17 Pen Needle, Diabetic [Unifine Pentips Plus] 1 ndl .ROUTE .MEDSUPPLY 09/06/17 Doxycycline 100 mg PO BID 5 Days #10 cap 09/08/17 The following prescriptions were given: Doxycycline 100 mg PO BID 5 Days #10 cap Primary Care Physician: Mala Mcgrath MD [Primary Care Provider] - Please follow up with your Primary Care Physician in: one week Test Results: When: please follow up with general surgeon at [facility] on September 13 Proposed Discharge Date: 09/08/17
[2017-09-08 11:20] LABS: Bedside Glucose 314 mg/dL (70-110)
--- NOTE | 2017-09-08 11:33 | NURSING ---
Blood Sugar is 314 and pt does not want coverage as she is going to go home and eat lunch and give herself insulin then.
--- NOTE | 2017-09-10 16:48 | CASEMGMT ---
Case Management Follow-up Call: Patient answered phone and states she is feeling better. She states that she has an appointment with her surgeon, in [place], on Wednesday. She confirmed that she does have transportation to this appointment. She told me she has setup an appointment to see her PCP in the end of September. I informed her that we recommend she sees her PCP one week after leaving hospital. Patient states she will contact her PCP to attempt to get a sooner appointment. Patient states she has been taking her antibiotic and denies any questions/concerns/comments.
== END 2017-09-08 14:09 | disposition home or self-care (01) | DRG 139 ==
LOC: ED 10:23 → MS3 14:58
PROVIDERS: Admitting Provider Student in an Organized Health Care Education/Training Program; Emergency Provider Emergency Medicine; Family Provider Internal Medicine; PCP Internal Medicine; Visit Provider Student in an Organized Health Care Education/Training Program
DX: J18.9 Pneumonia, unspecified organism (principal); T81.4XXA Infection following a procedure, initial encounter; I13.0 Hypertensive heart and chronic kidney disease with heart failure and stage 1 through stage 4 chronic kidney disease, or unspecified chronic kidney disease; N18.3 Chronic kidney disease, stage 3 (moderate); I50.30 Unspecified diastolic (congestive) heart failure; J44.0 Chronic obstructive pulmonary disease with (acute) lower respiratory infection; I25.10 Atherosclerotic heart disease of native coronary artery without angina pectoris; Y95 Nosocomial condition; E11.22 Type 2 diabetes mellitus with diabetic chronic kidney disease; K31.84 Gastroparesis; L40.9 Psoriasis, unspecified; D63.1 Anemia in chronic kidney disease; K51.90 Ulcerative colitis, unspecified, without complications; I27.20 Pulmonary hypertension, unspecified; Z95.5 Presence of coronary angioplasty implant and graft; Z79.4 Long term (current) use of insulin; Z90.49 Acquired absence of other specified parts of digestive tract; Z87.891 Personal history of nicotine dependence; Z93.2 Ileostomy status; Z79.899 Other long term (current) drug therapy; Z95.1 Presence of aortocoronary bypass graft; E78.4 Other hyperlipidemia
CPT/HCPCS: 36415; 71045; 71275; 74176; 80048; 80202; 81001; 82962; 83605; 83690; 84484; 85025; 87040; 87070; 87205; 93005; 94640; 97162; 97166; 97802; 99284; J2185; J7030; J7050; Q9967; A4216; J2405

== ENCOUNTER 2017-09-12 12:11 | Emergency (ER) | payer MEDICAID, SELFPAY ==
[2017-09-12 12:12] VITALS: BP 127/71; PULSE 88; RESP 15; TEMP 35.8; O2SAT 97; BMI 30.9
--- NOTE | 2017-09-12 12:34 | CT_ITS ---
STUDY: CT ABDOMEN AND PELVIS WITH CONTRAST REASON FOR EXAM: Female, 57 years old. Right lower quadrant pain. History of fistula repair. RADIATION DOSAGE (If Supplied By Facility): CTDIvol = ( 19.66 ) mGy, DLP = ( 1221.72 ) mGycm TECHNIQUE: Transaxial images were obtained from the dome of the diaphragm to the symphysis pubis without oral contrast. 100mL ml of Isovue 300 contrast was administered. Sagittal and coronal images were reconstructed. Individualized dose optimization techniques were used for this CT. COMPARISON: September 06, 2017 FINDINGS: The visualized lung bases are unremarkable. The visualized portions of the heart are within normal limits. There is decreased attenuation of the liver consistent with steatosis. There is a stable low-attenuation focus within the liver that may reflect an underlying hemangioma or cyst. There is non-visualization of the gallbladder, which may be secondary to either contraction or a prior cholecystectomy. Normal spleen. Normal pancreas. Normal bilateral adrenal glands. Normal right kidney. Normal left kidney. Normal visualized stomach. The colon is surgically absent. There is a left-sided ileostomy present. There is a stable segment of small bowel within the mid anterior abdomen with circumferential wall thickening and mild adjacent stranding associated with postsurgical changes (image 65 series 2). There is diffuse atherosclerotic calcification of the abdominal aorta, without a demonstrated aneurysm. Normal inferior vena cava. Normal retroperitoneum. Normal urinary bladder. There are postsurgical changes along the anterior abdominal wall. There are diffuse degenerative changes of the visualized lumbar spine. There is a stable sclerotic focus within the right sacrum and L3 vertebra. CT/Abdomen/Pelvis WITH Contrast IMPRESSION: Stable circumferential wall thickening of a segment of small bowel within the anterior abdomen, cannot exclude chronic inflammation. Atherosclerosis. Fatty infiltration of the liver. Electronically Signed: Kayla Hanson MD at 14:49 EDT Tel , Service support ,
--- NOTE | 2017-09-12 12:40 | ED.VISSUMM ---
- ER Visit Summary Date of Service: 09/12/17 Chief Complaint: Right lower quadrant pain History of Present Illness: The patient is a 57 F with history of abdominal fistula repair on August 19 at [facility] with Dr. Rose. Patient states she was changing the dressing last night and her Jorge drain pulled out of the right lower quadrant surgical wound. It was scheduled to be pulled at an appointment tomorrow, but now the patient presents complaining of increased right lower quadrant pain. Patient was admitted here September 06 for pneumonia. She is scheduled to finish her antibiotics tomorrow. She states she still feels somewhat short of breath, is significantly improved compared to her initial presentation. Physical Examination: Vital signs are unremarkable. Patient sitting upright in bed no acute distress. She is nontoxic appearing. Head and neck examination is normal. Heart is regular rate and rhythm. Lung sounds are clear. Abdomen is soft with tenderness in the right lower quadrant. There is no guarding or rebound. She has mild wound drainage from the right lower quadrant wound. There is no overlying skin changes or sign of cellulitis. Ileostomy bag is in place in the left lower quadrant with good output. Test Results: CBC is remarkable only for hemoglobin 11.8. Chemistry studies reveal glucose of 214, BUN 26, creatinine 1.20. CT abdomen pelvis with p.o. and IV contrast reveals stable circumferential wall thickening of a segment of small bowel within the anterior abdomen, cannot exclude chronic inflammation. Emergency Department Course and Treatment: Patient is given morphine, Zofran, and IV fluids. Repeat evaluation she is resting comfortably. Test results were discussed with her. At this time I do believe she can be discharged home. She states that she is in too much pain to drive to her doctor's appointment tomorrow and will not be able to make it. I am attempting to contact her surgeon at [facility]. I also left a message with home health care case manager to see if they can help let patient know how to have her insurance help with transport in the future for doctor's appointments. Patient states she has no one else that can take her to a doctor's appointment tomorrow. Treatment Plan: [] Disposition: Discharge Impression: Postop pain This note was generated with opendorse dictation software. It may contain incorrect words, spelling, and punctuation that were not noted in review of the chart prior to signing ED Disposition - Plan for ED Patient: Chief Complaint: Abd Pain Referrals: Mala Mcgrath MD [Primary Care Provider] -
[2017-09-12] MEDS: 0.9% Normal Saline 1,000 ML 150 ML IV (13:03)
[2017-09-12] MEDS: Morphine 4 MG/ML Syringe IV (13:03)
[2017-09-12] MEDS: Ondansetron 4 MG/2 ML Vial IV (13:03)
[2017-09-12 13:16] LABS: Absolute Lymphocyte Count 2.17 X10^3/ul (0.83-4.51); Absolute Neutrophil Count 6.3 X10^3/uL (2.0-7.7); Basophil# 0.05 X10^3/uL; Basophil% 0.5 % (0-1); Eosinophil# 0.47 X10^3/uL; Eosinophils% 4.8 % (0-5); Hematocrit 37.2 % (37-47); Hemoglobin 11.8 g/dl (12.0-15.0); Lymphocyte # 2.17 X10^3/ul (4.0); Lymphocyte % 22.4 % (19-41); Mean Corp Hgb Conc 31.7 g/gl (32-36); Mean Corpuscular Hgb 27.3 pg (27.0-32.0); Mean Corpuscular Volume 86.1 fL (81-99); Monocyte# 0.53 X10^3/uL; Monocyte% 5.5 % (0-10); Neutrophil # 6.25 X10^3/uL (2.7-7.7); Neutrophil % 64.4 % (47-70); Platelet Count 334 K/mm3 (150-450); RBC Distribution Width CV 15.5 % (11.6-14.6); RBC Distribution Width SD 48.4 fl (35.1-43.9); Red Blood Count 4.32 M/mm3 (4.2-5.4); White Blood Count 9.7 K/mm3 (4.4-11.0)
[2017-09-12 13:17] LABS: POSITIVE COUNT YES; POSITIVE DIFFERENTIAL NO; POSITIVE MORPHOLOGY YES
[2017-09-12 13:24] LABS: Anion Gap 7 (5-15); BUN 26 mg/dL (7-18); BUN/Creat Ratio 21.7 RATIO (10-20); Calcium,Total 9.8 mg/dL (8.5-10.1); Chloride 104 mmol/L (98-107); EST Glomerular Filtration Rate 49 mL/min (>60); Est Glom Filt Rate - Afr Amer 59 mL/min (>60); Estimated Creatinine Clearance 49.09 ml/min; Glucose 214 mg/dL (74-106); Potassium 4.3 mmol/L (3.5-5.1); Sodium Level 139 mmol/L (136-145)
[2017-09-12 13:37] VITALS: BP 132/69; PULSE 67; O2SAT 94
--- NOTE | 2017-09-12 15:56 | DCINST.ED_ITS ---
ED Disposition - Plan for ED Patient: Disposition: Home or Assisted Living Chief Complaint: Abd Pain Instructions: ED Post Op Pain Additional Instructions: Follow-up with your surgeon at [facility] as soon as possible.
[2017-09-12 16:04] VITALS: BP 140/76; PULSE 74; RESP 18; O2SAT 97
--- NOTE | 2017-09-13 09:12 | CM.ED ---
Social Work Note Referral from Dr. Alexandre for transportation concerns. Pt has an appointment at [facility] and is in too much pain to drive herself. Placed call to pt and she states that she knows about transportation through her insurance as she has used it in the past. At this time claims it is too late to setup transport with this short of notice. She cancelled her appointment for today. Recommend that when she reschedules she setups transportation through insurance in the event that she has this onset of abdominal pain again. Understanding expressed and pt declines further needs at this time. Linda Mar, ROUTE DELIVERY MANAGER, WET PLANT OPERATOR
[2017-09-13 14:26] LABS: Pathologist Review Reviewed
== END 2017-09-12 16:08 | disposition home or self-care (01) ==
PROVIDERS: Emergency Provider Emergency Medicine; Family Provider Internal Medicine; PCP Internal Medicine
DX: G89.18 Other acute postprocedural pain (principal); R10.31 Right lower quadrant pain; Z93.2 Ileostomy status; J18.9 Pneumonia, unspecified organism; I13.0 Hypertensive heart and chronic kidney disease with heart failure and stage 1 through stage 4 chronic kidney disease, or unspecified chronic kidney disease; E11.22 Type 2 diabetes mellitus with diabetic chronic kidney disease; N18.9 Chronic kidney disease, unspecified; I50.9 Heart failure, unspecified; I25.10 Atherosclerotic heart disease of native coronary artery without angina pectoris; E78.00 Pure hypercholesterolemia, unspecified; F32.9 Major depressive disorder, single episode, unspecified; K51.90 Ulcerative colitis, unspecified, without complications; Z87.891 Personal history of nicotine dependence; Z79.2 Long term (current) use of antibiotics; Z79.4 Long term (current) use of insulin; Z79.51 Long term (current) use of inhaled steroids; Z79.82 Long term (current) use of aspirin; Z79.02 Long term (current) use of antithrombotics/antiplatelets; Z79.899 Other long term (current) drug therapy
CPT/HCPCS: 74177; 80048; 85025; 96361; 96374; 96375; 99284; J7030; Q9967; J2405

== ENCOUNTER → 2017-10-19 09:08 | Outpatient (CLI) | payer MEDICAID, SELFPAY ==
[2017-10-19 10:24] LABS: Hemoglobin A1c 8.4 % (4.2-6.3)
[2017-10-19 10:38] LABS: ALB/GLOB Ratio 0.7 RATIO (0.9-2.4); AST(SGOT) 32 U/L (15-37); Alanine Aminotransfer ALT/SGPT 32 U/L (13-56); Albumin, Serum 3.3 g/dL (3.2-5.0); Alkaline Phosphatase 221 U/L (45-117); Anion Gap 15 (5-15); BUN 25 mg/dL (7-18); Calcium,Total 9.6 mg/dL (8.5-10.1); Chloride 102 mmol/L (98-107); Cholesterol 160 mg/dL (200); Creatinine, Serum 1.39 mg/dL (0.55-1.02); EST Glomerular Filtration Rate 41 mL/min (>60); Est Glom Filt Rate - Afr Amer 50 mL/min (>60); Globulin 4.5 g/dL (2.2-4.2); Glucose 394 mg/dL (74-106); High Density Lipoprotein 36 mg/dL; Potassium 4.4 mmol/L (3.5-5.1); Protein, Total 7.8 g/dL (6.4-8.2); Sodium Level 137 mmol/L (136-145); Triglycerides 737 mg/dL
[2017-10-19 10:42] LABS: T4 Free Direct 0.93 ng/dL (0.76-1.46); Thyroid Stim Hormone (TSH) 2.67 uIU/mL (0.358-3.74)
== END ==
PROVIDERS: Nurse Practitioner; Family Provider Internal Medicine; PCP Internal Medicine; Visit Provider Internal Medicine
DX: E07.9 Disorder of thyroid, unspecified (principal); E11.9 Type 2 diabetes mellitus without complications; I10 Essential (primary) hypertension
CPT/HCPCS: 36415; 80053; 80061; 82043; 82570; 83036; 84439; 84443

== ENCOUNTER → 2017-10-21 10:38 | Outpatient (CLI) | payer MEDICAID, SELFPAY | PROVIDERS: Family Provider Internal Medicine; PCP Internal Medicine; Visit Provider Nurse Practitioner Family | DX: E04.1 Nontoxic single thyroid nodule (principal) | CPT/HCPCS: 76536 ==

== ENCOUNTER → 2017-11-19 10:28 | Outpatient (CLI) | payer MEDICAID, SELFPAY ==
--- NOTE | 2017-11-19 | FLU_PTH ---
PATIENT: ASHLEY MÉNDEZ LOC: [facility] U#:[id number] AGE/SX: 64/F ROOM: RE11/19/[address]: Dr. Thai Noble MD : 1960 BED: DIS: SPEC #: [id number] RECD: 11/19/17 11:26 STATUS: ISAAC HALLIE #: [id number] BLAKE: 11/19/17 00:[address]: Thai Noble DEPT: CYTOLOGY RECD BY: Raymond Valdovinos ENTERED: 11/19/17 11:27 SP TYPE: Fluid OTHR DR: Roberto Lynch, MARKER MACHINE-C Tissues: A - Thyroid gland, NOS B - Thyroid gland, NOS Procedures: Pap Stain (control) Special Stain Group II Surgery Specimen Level IV Cell Block Cytospin Fluid HEADER OPERATION: Ultrasound-guided fine needle aspiration right thyroid PRE-OP DIAGNOSIS: Multinodular goiter E04.2 TISSUE SUBMITTED: A ? Fluid in syringe right thyroid fluid for cytology, B - Fine needle aspiration right thyroid 12 slides DIAGNOSIS CYTOLOGY A. Fine needle aspiration, right thyroid nodule (cytospin and cell block): Negative for malignancy. B. Fine needle aspiration, right thyroid nodule (smears): Adequate for evaluation. Negative, consistent with colloid nodule. AM:katie 11/22/17 COMMENT A. Benign follicular cells are noted. CYTOLOGY STUDY Slides are reviewed. CYTOLOGY GROSS A - Received is 1 ml of red cloudy fluid labeled with the patient's name and and designated per the requisition as right thyroid. Submitted for cytology preparation including cell block. B - Received are 12 smears labeled with the patient's name and designated per the requisition as right thyroid. Submitted for staining. 11/19/17 TC:5 CPT: 65694, 73717, 90182
== END ==
PROVIDERS: Visit Provider Surgery
DX: E04.2 Nontoxic multinodular goiter (principal)
CPT/HCPCS: 88108; 88305; 88313

== ENCOUNTER → 2018-01-04 09:26 | Outpatient (CLI) | payer MEDICAID, SELFPAY ==
[2018-01-04 10:24] LABS: Absolute Lymphocyte Count 2.83 X10^3/ul (0.83-4.51); Absolute Neutrophil Count 4.5 X10^3/uL (2.0-7.7); Basophil# 0.04 X10^3/uL; Basophil% 0.5 % (0-1); Eosinophil# 0.36 X10^3/uL; Eosinophils% 4.3 % (0-5); Hematocrit 42.8 % (37-47); Hemoglobin 14.1 g/dl (12.0-15.0); Lymphocyte # 2.83 X10^3/ul (4.0); Lymphocyte % 34.2 % (19-41); Mean Corp Hgb Conc 32.9 g/gl (32-36); Mean Corpuscular Hgb 27.9 pg (27.0-32.0); Mean Corpuscular Volume 84.6 fL (81-99); Mean Platelet Vol. 13.4 fl (6.2-12.0); Monocyte# 0.54 X10^3/uL; Monocyte% 6.5 % (0-10); Neutrophil # 4.45 X10^3/uL (2.7-7.7); Neutrophil % 53.8 % (47-70); Platelet Count 201 K/mm3 (150-450); RBC Distribution Width CV 15.7 % (11.6-14.6); Red Blood Count 5.06 M/mm3 (4.2-5.4); White Blood Count 8.3 K/mm3 (4.4-11.0)
[2018-01-04 10:25] LABS: POSITIVE COUNT NO; POSITIVE DIFFERENTIAL NO; POSITIVE MORPHOLOGY NO
[2018-01-04 10:54] LABS: ALB/GLOB Ratio 0.7 RATIO (0.9-2.4); AST(SGOT) 34 U/L (15-37); Alanine Aminotransfer ALT/SGPT 29 U/L (13-56); Albumin, Serum 3.1 g/dL (3.2-5.0); Alkaline Phosphatase 192 U/L (45-117); Anion Gap 13 (5-15); BUN 27 mg/dL (7-18); BUN/Creat Ratio 17.9 RATIO (10-20); Calcium,Total 9.2 mg/dL (8.5-10.1); Chloride 103 mmol/L (98-107); Creatinine, Serum 1.51 mg/dL (0.55-1.02); EST Glomerular Filtration Rate 37 mL/min (>60); Est Glom Filt Rate - Afr Amer 45 mL/min (>60); Globulin 4.2 g/dL (2.2-4.2); Glucose 219 mg/dL (74-106); Potassium 3.7 mmol/L (3.5-5.1); Protein, Total 7.3 g/dL (6.4-8.2); Sodium Level 140 mmol/L (136-145)
== END ==
PROVIDERS: Family Provider Internal Medicine; PCP Internal Medicine; Referring Provider Internal Medicine; Visit Provider Internal Medicine
DX: R44.3 Hallucinations, unspecified (principal)
CPT/HCPCS: 36415; 80053; 85025

== ENCOUNTER → 2018-01-05 10:25 | Outpatient (CLI) | payer MEDICAID, SELFPAY ==
--- NOTE | 2018-01-05 10:27 | US_ITS ---
STUDY: ABDOMINAL ULTRASOUND REASON FOR EXAM: Female, 57 years old. Right lower quadrant pain. TECHNIQUE: Transabdominal ultrasound was performed with real-time and static posey scale imaging. TECHNICAL QUALITY: Adequate. COMPARISON: Comparison is made with prior examination in October 28, 2016. FINDINGS: Liver: The liver measures 17.0 cm. There is increased echogenicity consistent with fatty infiltration. The bile ducts are within normal limits. There is hepatic color flow. The direction of portal flow is hepatopetal. There is no demonstrated mass lesion. Portal vein measurement: Gallbladder: The patient is status post cholecystectomy. Common Bile Duct (C.B.D.): The common bile duct measures 7.2 mm. Pancreas: Normal size of the head, body and tail of the pancreas. There is increased echogenicity of the pancreas. There is no demonstrated pancreatic mass or cyst. Spleen: There is mild splenomegaly. The spleen measures 12.7 cm x 7.6 cm x 4.4 cm. Right Kidney: Normal size of the right kidney. The right kidney measures 9.4 sinus by 5.5 cm x 4.2 cm. Normal renal cortex. The right cortex measures 1.1 cm. There is no demonstrated renal mass or cyst. There is no right hydronephrosis. Left Kidney: Normal size of the left kidney. The left kidney measures 10.4 cm x 4.6 x 5.6 cm. Normal renal cortex. The left cortex measures 1.3 cm. There is no demonstrated renal mass or cyst. There is no left hydronephrosis. Aorta: Unremarkable. I.V.C.: The IVC is patent. There is no ascites. US/Abdomen Complete IMPRESSION: Fatty infiltration of the liver. Status post cholecystectomy. Mild splenomegaly. Electronically Signed: Eric Spencer MD at 13:39 EDT Tel [phone], Service support ,
== END ==
PROVIDERS: Family Provider Internal Medicine; PCP Internal Medicine; Referring Provider Internal Medicine; Visit Provider Internal Medicine
DX: R10.9 Unspecified abdominal pain (principal); M54.5 Low back pain; G89.29 Other chronic pain
CPT/HCPCS: 76700; 97116; 97530

== ENCOUNTER 2018-01-11 13:40 | Observation (INO) | payer MEDICAID, SELFPAY ==
[2018-01-11] VITALS (19 sets, daily range): BP systolic 113–176; BP diastolic 67–97; PULSE 74–105; RESP 16–23; TEMP 36.6–36.8; O2SAT 92–98; BMI 30.5; BMI 30.9
--- NOTE | 2018-01-11 14:38 | EKG12_ITS ---
Test Reason : CP Blood Pressure : / mmHG Vent. Rate : 084 BPM Atrial Rate : 084 BPM P-R Int : 152 ms QRS Dur : 086 ms QT Int : 368 ms P-R-T Axes : 013 -25 146 degrees QTc Int : 434 ms Normal sinus rhythm ST & T wave abnormality, consider anterolateral ischemia Abnormal ECG Confirmed by CHLOÉ DOMINGUEZ, AL ([id number]), newspaper or periodical editor MALIK HULL ([id number]) on 01/13/2018 3:23:32 PM Referred By: CHRISTINA Confirmed By:AL LUEVANO MD
--- NOTE | 2018-01-11 14:49 | RAD_ITS ---
STUDY: X-RAY CHEST REASON FOR EXAM: Female, 57 years old. Chest pain. TECHNIQUE: Single AP portable view of the chest. COMPARISON: Comparison is made with prior study dated September 06, 2017. FINDINGS: EKG electrodes are seen. The lungs are clear and expanded. There is no demonstrated pleural abnormality. Sternal cerclage wires and vascular clips are present from a prior sternotomy and coronary artery bypass graft procedure (CABG). Normal mediastinum and marie. Normal visualized pulmonary arteries. Normal visualized aortic arch and descending thoracic aorta. Normal visualized thoracic spine. Normal visualized ribs, clavicles, and shoulders. There is no demonstrated abnormality of the visualized soft tissue structures of the upper abdomen. RAD/Chest 1 View (Portable) IMPRESSION: Normal x-ray examination of the chest. Electronically Signed: Eric Spencer MD at 15:26 EST Tel [phone], Service support ,
--- NOTE | 2018-01-11 14:59 | ED.DCSUM_ITS ---
- ER Visit Summary Date of Service: 01/11/18 Chief Complaint: Chest pain History of Present Illness: The patient is a 57 F history of CAD, 9 cardiac stents, prior quadruple bypass in 2012, renal insufficiency, COPD, hypertension and type 2 diabetes. Patient is on Plavix and aspirin. She states she has not felt well for the last 2 days. States that she did lift her bed up Wednesday morning at 1:00 in the morning after collapse. And got sudden onset of chest pain with associated shortness of breath nausea and diaphoresis. Nitro has helped her pain but never totally resolved it. This is similar to her prior cardiac chest pain. Physical Examination: Middle-aged female. No acute distress. Vital signs are stable afebrile. Pulse ox 95% on room air no signs of hypoxia. HEENT exam unremarkable. Neck nontender no JVD. Lungs clear to auscultation bilaterally. Heart regular rate and rhythm no murmur rate about 80. Chest wall nontender. Abdomen soft and nontender. Normal bowel sounds. No peritoneal signs. Extremities she moves all 4. Equal symmetrical radial pulses. 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 Calves nontender without edema or cords. Dorsi plantar flexion intact. Back nontender. Neurologically she is awake and alert with no focal motor deficits. Test Results: EKG shows a sinus rhythm rate 84. With inverted T waves in V2 through V6 including lead I and aVL. No change from prior EKG from September 2017. Chest x-ray normal cardiac silhouette. Prior sternotomy. CBC unremarkable. BMP unremarkable except for creatinine 1.32. Glucose 311. Troponin is normal. Emergency Department Course and Treatment: Patient be treated with aspirin. Nitropaste. Morphine and Zofran. Treatment Plan: Patient is doing well at 15:20. I have already spoken to the hospitalist and she will be down to evaluate the patient for admission. Disposition: Admission Impression: Acute chest pain of uncertain etiology History of CAD with 9 prior cardiac stents History of diabetes This note was generated with [employer] dictation software. It may contain incorrect words, spelling, and punctuation that were not noted in review of the chart prior to signing ED Disposition - Plan for ED Patient: Chief Complaint: Chest Pain Referrals: Mala Mcgrath MD [Primary Care Provider] -
[2018-01-11 15:02] LABS: Anion Gap 9 (5-15); BUN 20 mg/dL (7-18); BUN/Creat Ratio 15.2 RATIO (10-20); Chloride 103 mmol/L (98-107); Creatinine, Serum 1.32 mg/dL (0.55-1.02); EST Glomerular Filtration Rate 44 mL/min (>60); Est Glom Filt Rate - Afr Amer 53 mL/min (>60); Estimated Creatinine Clearance 44.63 ml/min; Glucose 311 mg/dL (74-106); Potassium 4.4 mmol/L (3.5-5.1); Sodium Level 136 mmol/L (136-145)
[2018-01-11 15:03] LABS: Absolute Lymphocyte Count 1.96 X10^3/ul (0.83-4.51); Basophil# 0.03 X10^3/uL; Basophil% 0.5 % (0-1); Differential Indicated SCAN CRITERIA MET; Eosinophil# 0.28 X10^3/uL; Hematocrit 40.2 % (37-47); Hemoglobin 12.8 g/dl (12.0-15.0); Lymphocyte # 1.96 X10^3/ul (4.0); Lymphocyte % 35.1 % (19-41); Mean Corp Hgb Conc 31.8 g/gl (32-36); Mean Corpuscular Hgb 27.6 pg (27.0-32.0); Mean Corpuscular Volume 86.6 fL (81-99); Mean Platelet Vol. 12.7 fl (6.2-12.0); Monocyte% 5.4 % (0-10); Neutrophil # 2.98 X10^3/uL (2.7-7.7); Neutrophil % 53.5 % (47-70); POSITIVE COUNT NO; POSITIVE DIFFERENTIAL NO; POSITIVE MORPHOLOGY YES; Platelet Count 160 K/mm3 (150-450); RBC Distribution Width CV 15.8 % (11.6-14.6); RBC Distribution Width SD 49.8 fl (35.1-43.9); Red Blood Count 4.64 M/mm3 (4.2-5.4); White Blood Count 5.6 K/mm3 (4.4-11.0)
[2018-01-11] MEDS: Ondansetron 4 MG/2 ML Vial IV (15:26)
[2018-01-11] MEDS: Morphine 4 MG/ML Syringe IV (15:27)
[2018-01-11] MEDS: Nitroglycerin Oint 1 INCH PACKET TRANSDERM. (15:27)
--- NOTE | 2018-01-11 16:12 | PCM.HP.STD ---
Problem List (1) CAD (coronary artery disease) Status: Acute (2) Chronic renal insufficiency Status: Chronic Qualifiers: (3) Sleep apnea Status: Chronic (4) Menieres disease Status: Chronic (5) Ulcerative colitis Status: Chronic (6) Ileostomy status Status: Chronic (7) Hyperlipidemia Status: Chronic Qualifiers: Comment: Continues on statin without side effect. Reports taking as directed. No recent labs noted. (8) Heart failure with preserved ejection fraction Status: Chronic (9) Benign essential HTN Status: Chronic (10) DM2 (diabetes mellitus, type 2) Status: Chronic Qualifiers: (11) FCHL (familial combined hyperlipidemia) Status: Chronic (12) Pulmonary hypertension Status: Chronic (13) History of coronary artery stent placement Status: Chronic Comment: Mid LAD and Cx 2012, D1 and prox OM1 2012, Prox SVG, Distal SVG to the Mid OM 2012 (14) S/P CABG (coronary artery bypass graft) Status: Chronic Comment: JONES to LAD, SVG diag, SVG to OM, SVG to left PDA (15) COPD (chronic obstructive pulmonary disease) Status: Chronic History of Present Illness Date of Admission: 01/11/18 Chief Complaint: chest pain The patient is a 57 year old F with a pmhx of CAD with prior CABG x4, stents x9, patient of dr. Menon, HLD, HTN, obesity, DMt2, CKDIII, UC with colectomy, ANKITA, who presented to the ER with c/o Chest pain. She states this began at about 1 am on Wednesday. She states he bed fell down and she needed to lift it back up. As she lifted it she developed chest pain in two locations. One was midsternal. She described this as severe crushing pain. She also had somewhat left sided pain described as sharp stabbing pain. She decided to try to sleep it off. The next two days she spent most of the day in bed and it felt like the pain was improving. Today she tried to be more active and the pain came back and was more severe. She states it was radiating into the left arm and in between the shoulder blades. She states today and the first day she broke out into a sweat and became severely Short of breath. She has no fever or chills. No dizziness or LH. She had a stress test in july 2017 which was negative, last cath was 2015. [] Past Medical History Past Medical History (Chronic Problems): Chronic Problems (Last Reviewed 01/04/18 @ 10:06 by DERIC Cabrera) Multiple falls (Chronic) Shortness of breath (Chronic) Syncope (Chronic) Vertigo (Chronic) Chronic renal insufficiency (Chronic) Sleep apnea (Chronic) Menieres disease (Chronic) Ulcerative colitis (Chronic) Ileostomy status (Chronic) Surgical wound dehiscence (Chronic) Hyperlipidemia (Chronic) Continues on statin without side effect. Reports taking as directed. No recent labs noted. Diarrhea (Chronic) Anemia of chronic renal failure, stage 3 (moderate) (Chronic) Obstructive sleep apnea (Chronic) Psoriasis (Chronic) Heart failure with preserved ejection fraction (Chronic) Benign essential HTN (Chronic) Depression (Chronic) DM2 (diabetes mellitus, type 2) (Chronic) FCHL (familial combined hyperlipidemia) (Chronic) Ulcerative colitis (Chronic) Status post ileostomy Hx of coronary artery disease (Chronic) Status post CABG, failed, status post multiple stents. Pulmonary hypertension (Chronic) History of coronary artery stent placement (Chronic ~2012) Mid LAD and Cx 2012, D1 and prox OM1 2012, Prox SVG, Distal SVG to the Mid OM 2012 S/P CABG (coronary artery bypass graft) (Chronic ~2012) JONES to LAD, SVG diag, SVG to OM, SVG to left PDA Chronic respiratory failure (Chronic) COPD (chronic obstructive pulmonary disease) (Chronic) Medical History: Medical History (Last Reviewed 01/04/18 @ 10:06 by RACHELL CabreraC) Thyroid mass (Acute) E07.9 Syncope (Chronic) R55 Vertigo (Chronic) R42 Chronic renal insufficiency (Chronic) N18.9 Sleep apnea (Chronic) G47.30 Menieres disease (Chronic) H81.09 Ulcerative colitis (Chronic) K51.90 CAD (coronary artery disease) (Acute) I25.10 Hyperlipidemia (Chronic) E78.5 Continues on statin without side effect. Reports taking as directed. No recent labs noted. Benign essential HTN (Chronic) I10 DM2 (diabetes mellitus, type 2) (Chronic) E11.9 Hx of coronary artery disease (Chronic) Z86.79 Status post CABG, failed, status post multiple stents. Allergies cinnamon [Cinnamon] Allergy (Verified 01/11/18 14:00) Anaphylaxis Influenza Virus Vaccines Allergy (Verified 01/11/18 14:00) Shortness of breath liraglutide [From Victoza] Allergy (Verified 01/11/18 14:00) Anaphylaxis metronidazole [From Flagyl] Allergy (Verified 01/11/18 14:00) Hives Metronidazole HCl [From Flagyl] Allergy (Verified 01/11/18 14:00) Hives Penicillins Allergy (Verified 01/11/18 14:00) Hives Sulfa (Sulfonamide Antibiotics) Allergy (Verified 01/11/18 14:00) Hives ciprofloxacin [From Cipro] Adverse Reaction (Verified 01/11/18 14:00) Nausea codeine Adverse Reaction (Verified 01/11/18 14:00) Stops Ileostomy dicyclomine HCl [From Bentyl] Adverse Reaction (Verified 01/11/18 14:00) Nausea metformin HCl [From Glucophage] Adverse Reaction (Verified 01/11/18 14:00) Nausea Rshnynk-Kou-Gwx Reductase Inhibitor Adverse Reaction (Verified 01/11/18 14:00) Nausea/joints ache Home Medications: Ambulatory Orders Medication Instructions Recorded Ondansetron HCl [Zofran] 4 mg PO Q8H PRN PRN #20 tab 09/05/16 Baclofen 10 mg PO QHS 11/24/16 loperamide 2 mg tablet 2 mg PO 4X/DAY PRN PRN tab 02/12/17 insulin aspart U- 100 100 unit/mL See Protocol SC TIDCM ml 03/23/17 subcutaneous pen miconazole nitrate 2 % topical 1 applic TOPICAL DAILY 03/23/17 powder tramadol 50 mg tablet 50 mg PO BID PRN PRN tab 05/05/17 Hydrocortisone 1 applic TOPICAL BID 06/02/17 nitroglycerin 0.4 mg sublingual 0.4 mg SUBLINGUAL Q5M PRN #25 tab 06/08/17 tablet Furosemide [Lasix] 40 mg PO DAILY 07/07/17 insulin glargine (U-100) 100 80 units SC BID ml 09/02/17 unit/mL (3 mL) subcutaneous pen clopidogrel 75 mg tablet 75 mg PO DAILY #30 tab 09/21/17 isosorbide dinitrate 30 mg tablet 30 mg PO TID #90 tab 09/21/17 magnesium oxide 400 mg (241.3 mg 400 mg PO BID #60 tab 09/21/17 magnesium) tablet metoprolol tartrate 50 mg tablet 75 mg PO BID #90 tab 09/21/17 buprenorphine 7.5 mcg/hour weekly 1 patch TRANSDERMAL QWEEK 10/18/17 transdermal patch omeprazole 20 mg capsule,delayed 20 mg PO DAILY #90 cap 10/19/17 release pregabalin 50 mg capsule 50 mg PO BID #60 cap 10/19/17 calcium carbonate 600 mg calcium 600 mg PO BID #60 tab 11/30/17 (1,500 mg) tablet cholecalciferol (vitamin D3) 2,000 2,000 unit PO DAILY #90 cap 11/30/17 unit capsule atorvastatin 80 mg tablet 80 mg PO QHS #90 tab 12/20/17 lorazepam 0.5 mg tablet 0.5 mg PO QHS PRN #30 tab 01/10/18 Aspirin E.C. [Ecotrin] 81 mg PO DAILY 01/11/18 Insulin Aspart [Novolog Flexpen] 22 units SQ TIDCM 01/11/18 Venlafaxine HCl [Effexor Xr] 150 mg PO DAILY 01/11/18 Surgical History: Surgical History (Last Reviewed 01/04/18 @ 10:06 by DERIC Cabrera) History of coronary artery stent placement (Chronic) Onset Date: ~2012 Z95.5 Mid LAD and Cx 2013, D1 and prox OM1 2012, Prox SVG, Distal SVG to the Mid OM 2013 S/P CABG (coronary artery bypass graft) (Chronic) Onset Date: ~2012 Z95.1 JONES to LAD, SVG diag, SVG to OM, SVG to left PDA H/O colectomy Z98.890, Z90.49 H/O sinus surgery Z98.890 H/O total hysterectomy Z98.890, Z90.710 gallbdder removal history closed fissure ileostomy left thumb surgery lysis of adhesion vestibular nerve surgery for Meniere's ABD abscess removal 09/18/2017 Surgical History: angioplasty, coronary bypass surgery, hysterectomy, - Psychiatric History: Anxiety, Depression TOWER HAND History: No pertinent TOWER HAND history Lives: Alone Smoking Status: Former smoker Tobacco Use: Non-smoker Alcohol: None Drugs: None - *Family History Maternal Family History: Family History (Last Reviewed 01/04/18 @ 10:06 by DERIC aCbrera) Mother CVA (cerebral vascular accident) Diabetes Brother Heart disease Myocardial infarction Pancreatitis Father Cancer Lymphoma Grandmother Myocardial infarction Sister COPD (chronic obstructive pulmonary disease) History Items: Heart Disease, - - No autoimmune disease that she is aware of Paternal Family History: Family History (Last Reviewed 01/04/18 @ 10:06 by DERIC Cabrera) Mother CVA (cerebral vascular accident) Diabetes Brother Heart disease Myocardial infarction Pancreatitis Father Cancer Lymphoma Grandmother Myocardial infarction Sister COPD (chronic obstructive pulmonary disease) History Items: Cancer - Father has H/o lymphoma, - - No autoimmune disease that she is aware of Review of Systems Constitutional: Denies: Chills, Fever, Weight Change HEENT: Denies: Head Aches, Sinus Congestion, Sinus Drainage Cardiovascular: Denies: Chest Pain, Palpitations Respiratory: Denies: Cough, Shortness of breath at rest, Sputum production Gastrointestinal: Denies: Abdominal Pain, Nausea, Vomiting Genitourinary: Denies: Dysuria Musculoskeletal: Denies: Joint Pain, Joint Tenderness Skin: Denies: Rash, Wounds Neurological: Denies: Numbness, Tingling, Focal weakness Psychiatric: Denies: Anxiety, Depression, Homicidal Ideations, Suicidal Ideations Hematologic/ Lymphatic: Denies: Easy Bruising, Easy Bleeding VTE Information - Inpt Only VTE Present on Admission: No VTE Mechan Device Prophylaxis: None VTE Pharm Prophylaxis ordered?: Yes - Physical Exam General: Alert, Oriented x3, Cooperative HEENT: Atraumatic, PERRLA, EOMI, Normocephalic Neck: Supple, No JVD, Negative Carotid Bruits Lungs: Clear to auscultation, Normal air movement Cardiovascular: Regular rate, Murmur - 2/6 systolic Abdomen: Bowel Sounds Present, Soft, Non Tender, Obese Extremities: No edema, Capillary Refill Less than 3 Seconds Skin: No rashes, No breakdown Musculoskeletal: No Tenderness to Palpation of Joints or Extremities Neurological: Cranial nerves II-XII grossly intact Psych/Mental Status: Normal Affect, Appropriate, Alert and oriented to time, place, person, mood and affect Vital Signs Temp Pulse Resp BP Pulse Ox 97.8 F 77 16 144/70 H 97 01/11/18 13:41 01/11/18 15:27 01/11/18 15:21 01/11/18 15:27 01/11/18 15:21 Oxygen Delivery Method Room Air Weight: 195 lb Body Mass Index (BMI) 30.5 Finger Stick Blood Glucose 348 Laboratory Tests Past 24 Hrs 01/11/18 01/11/18 13:59 13:59 WBC 5.6 RBC 4.64 Hgb 12.8 Hct 40.2 MCV 86.6 MCH 27.6 MCHC 31.8 L RDW 15.8 H RDW Differential 49.8 H Plt Count 160 MPV 12.7 H Immature Gran % (Auto) 0.500 Neut % (Auto) 53.5 Lymph % (Auto) 35.1 Zapata % (Auto) 5.4 Eos % (Auto) 5.0 Baso % (Auto) 0.5 Absolute Neuts (auto) 3.0 Absolute Lymphs (auto) 1.96 Total Counted Not Reportable Sodium 136 Potassium 4.4 Chloride 103 Carbon Dioxide 24.0 Anion Gap 9 BUN 20 H Creatinine 1.32 H Estim Creat Clear Calc 44.63 Est GFR (MDRD) Af Amer 53 L Est GFR (MDRD) Non-Af 44 L BUN/Creatinine Ratio 15.2 Glucose 311 H Calcium 9.0 Troponin I < 0.015 Assessment/Plan All Active Problems (Last Reviewed 01/04/18 @ 10:06 by Hollie Fulton, EL-C) Hallucinations (Acute) Thyroid mass (Acute) Right thyroid nodule (Acute) Sepsis (Acute) Abdominal pain (Acute) CAD (coronary artery disease) (Acute) Acute pancreatitis (Resolved) Chest pain (Resolved) Hypokalemia (Resolved) 1. Chest pain in the setting of severe CAD with prior CABGx 4 stents x 9 - recent negative stress test. Consult Dr. Menon. Trop negative. EKG without acute change. Chest xray negative. Cycle enzymes. Repeat EKG. Maintain on tele. Await further recommendation from her practice billing associate. Continue asa, statin, plavix, isosorbide dinitrate, metoprolol. Pt not on an kimberli inhibitor. 2. DMt2 - continue home insulin + SSI. Check A1C. glucose 300+. Follows Se. 3. COPD stable - prn aerosols. Follows Dr. Baca. 4. Ulcerative colitis s/p colectomy, ostomy - wound care consult. Some drainage recently. Afebrile, no leukocytosis. 5. Hx ANKITA 6. HLD - statin 7. HTN - poorly controlled. consider addition of kimberli/arb 8. Menieres - vestibular nerve severed previously. Has risidual episodic vertigo. 9. CKDIII - stable. 10. Hx diastolic CHF - does not appear to be in exacerbation - last EF 65% per Echo 07/2017. Defer repeat. Stage 1 diastolic dyfunction 11. Chronic pain syndrome - continue home pain meds. DVT ppx: heparin This patient was seen by Tomas Sun PA-C under the supervision of Doctor Ev.
--- NOTE | 2018-01-11 16:44 | EKG12_ITS ---
Test Reason : CP Blood Pressure : / mmHG Vent. Rate : 097 BPM Atrial Rate : 097 BPM P-R Int : 152 ms QRS Dur : 082 ms QT Int : 378 ms P-R-T Axes : 058 -17 078 degrees QTc Int : 480 ms Normal sinus rhythm Possible Left atrial enlargement Nonspecific ST and T wave abnormality Prolonged QT Abnormal ECG When compared with ECG of 11-JAN-2018 17:17, MANUAL COMPARISON REQUIRED, DATA IS UNCONFIRMED Confirmed by CHLOÉ DOMINGUEZ, AL ([id number]), medical editor MALIK HULL ([id number]) on 01/13/2018 3:56:14 PM Referred By: Confirmed By:AL LUEVANO MD
[2018-01-11 17:20] LABS: Bedside Glucose 178 mg/dL (70-110)
[2018-01-11 17:31] LABS: Hemoglobin A1c 10.6 % (4.2-6.3)
[2018-01-11 17:33] LABS: Magnesium 1.7 mg/dL (1.6-2.6)
[2018-01-11] MEDS: Insulin Lispro 100 UNIT/ML INSULN.PEN SC ×2 (18:09→22:03)
--- NOTE | 2018-01-11 19:14 | NURSING ---
PT COMPLAINED OF CHEST PAIN DURING SHIFT REPORT, CALLED FOR EKG, VS TAKEN 123/67, hr 97, SPO2 93 ROOM AIR, 1 SUBLINGUAL NITRO GIVEN. WI8LL CONTINUE TO MONITOR.
[2018-01-11] MEDS: Ipratropium/Albuterol Sulfate 3 ML AMPUL.NEB INHALATION (19:15)
--- NOTE | 2018-01-11 19:15 | EKG12_ITS ---
Test Reason : CPADMIT Blood Pressure : / mmHG Vent. Rate : 078 BPM Atrial Rate : 078 BPM P-R Int : 162 ms QRS Dur : 088 ms QT Int : 386 ms P-R-T Axes : 043 -23 153 degrees QTc Int : 440 ms Normal sinus rhythm ST & T wave abnormality, consider inferior ischemia ST & T wave abnormality, consider anterolateral ischemia Abnormal ECG When compared with ECG of 11-JAN-2018 13:41, MANUAL COMPARISON REQUIRED, DATA IS UNCONFIRMED Confirmed by CHLOÉ DOMINGUEZ, AL ([id number]), editorial intern MALIK HULL ([id number]) on 01/13/2018 3:56:27 PM Referred By: BASSEM Confirmed By:AL LUEVANO MD
[2018-01-11] MEDS: Morphine 2 MG/ML Syringe IV (19:35)
[2018-01-11] MEDS: Hydrocortisone 2.5% Crm 1 APPLIC TOPICAL (22:00)
[2018-01-11] MEDS: Heparin Injection (Vial) 5,000 UNIT/ML VIAL 5000 UNIT SC (22:01)
[2018-01-11] MEDS: Baclofen 10 MG Tablet PO (22:08)
[2018-01-11] MEDS: Metoprolol Tartrate 50 MG Tablet 75 MG PO (22:08)
[2018-01-11] MEDS: Atorvastatin Calcium 80 MG Tablet PO (22:08)
[2018-01-11] MEDS: Magnesium Oxide 400 MG Tablet PO (22:09)
[2018-01-11 22:15] LABS: Bedside Glucose 311 mg/dL (70-110)
[2018-01-11] MEDS: Pregabalin 50 MG Capsule PO (22:15)
[2018-01-11] MEDS: LORazepam 0.5 MG Tablet PO (22:25)
[2018-01-11] MEDS: Isosorbide DN 30 MG Tablet PO (22:25)
[2018-01-12] VITALS (35 sets, daily range): BP systolic 102–166; BP diastolic 38–79; PULSE 58–96; RESP 12–21; TEMP 36.4–36.9; O2SAT 91–99; BMI 30.9
--- NOTE | 2018-01-12 05:55 | EKG12_ITS ---
Test Reason : AM Blood Pressure : / mmHG Vent. Rate : 064 BPM Atrial Rate : 064 BPM P-R Int : 160 ms QRS Dur : 090 ms QT Int : 418 ms P-R-T Axes : 012 -17 145 degrees QTc Int : 431 ms Normal sinus rhythm ST & T wave abnormality, consider anterolateral ischemia Abnormal ECG When compared with ECG of 11-JAN-2018 19:16, MANUAL COMPARISON REQUIRED, DATA IS UNCONFIRMED Confirmed by CHLOÉ DOMINGUEZ, AL ([id number]), design editor MALIK HULL ([id number]) on 01/13/2018 3:55:43 PM Referred By: BASSEM Confirmed By:AL LUEVANO MD
[2018-01-12 06:32] LABS: Hemoglobin 12.4 g/dl (12.0-15.0); Mean Corp Hgb Conc 32.6 g/gl (32-36); Mean Corpuscular Hgb 28.2 pg (27.0-32.0); Mean Corpuscular Volume 86.6 fL (81-99); Mean Platelet Vol. 12.7 fl (6.2-12.0); Platelet Count 159 K/mm3 (150-450); RBC Distribution Width SD 49.6 fl (35.1-43.9); Red Blood Count 4.39 M/mm3 (4.2-5.4); White Blood Count 5.8 K/mm3 (4.4-11.0)
[2018-01-12 06:38] LABS: Scan Indicated on CBC? Y/N NO
[2018-01-12 06:51] LABS: Anion Gap 12 (5-15); BUN 20 mg/dL (7-18); BUN/Creat Ratio 15.9 RATIO (10-20); Calcium,Total 8.9 mg/dL (8.5-10.1); Chloride 104 mmol/L (98-107); Cholesterol 249 mg/dL (200); Creatinine, Serum 1.26 mg/dL (0.55-1.02); EST Glomerular Filtration Rate 46 mL/min (>60); Est Glom Filt Rate - Afr Amer 56 mL/min (>60); Estimated Creatinine Clearance 46.75 ml/min; Glucose 223 mg/dL (74-106); High Density Lipoprotein 33 mg/dL; Potassium 4.3 mmol/L (3.5-5.1); Sodium Level 139 mmol/L (136-145); Triglycerides 1141 mg/dL
[2018-01-12] MEDS: Ipratropium/Albuterol Sulfate 3 ML AMPUL.NEB INHALATION ×2 (06:52→18:40)
[2018-01-12] MEDS: Isosorbide DN 30 MG Tablet PO ×3 (06:53→21:09)
[2018-01-12 07:05] LABS: Bedside Glucose 235 mg/dL (70-110)
[2018-01-12] MEDS: Metoprolol Tartrate 50 MG Tablet 75 MG PO ×2 (08:33→21:10)
[2018-01-12] MEDS: Clopidogrel Bisulfate 75 MG Tablet PO (08:36)
[2018-01-12] MEDS: Aspirin E.C. 81 MG Tablet PO (08:36)
--- NOTE | 2018-01-12 10:07 | NURSING ---
verbal report given to SVETLANA delong in ICU
[2018-01-12 10:10] LABS: ACT Activated Clotting Time 186 sec (74-137)
--- NOTE | 2018-01-12 10:22 | EKG12_ITS ---
Test Reason : POST PCI Blood Pressure : / mmHG Vent. Rate : 060 BPM Atrial Rate : 060 BPM P-R Int : 168 ms QRS Dur : 084 ms QT Int : 428 ms P-R-T Axes : 049 -19 159 degrees QTc Int : 428 ms Normal sinus rhythm ST & T wave abnormality, consider anterolateral ischemia Abnormal ECG When compared with ECG of 12-JAN-2018 04:52, MANUAL COMPARISON REQUIRED, DATA IS UNCONFIRMED Confirmed by CHLOÉ DOMINGUEZ, AL ([id number]), scientific editor MALIK HULL ([id number]) on 01/13/2018 4:13:36 PM Referred By: MARYANN Confirmed By:AL LUEVANO MD
--- NOTE | 2018-01-12 10:23 | CL.I_ITS ---
Patient Name: ASHLEY MÉNDEZ Study Date: 01/12/2018 Performing: Thai Platt MD Ht: 66.92 inches 170 cm : 1960 Wt: 198.42 lbs 90 kg Age: 57 Gender: female BSA: 2.01 PROCEDURE(S) PERFORMED FE06-NCF/COR/LV/CABG AM22-PQS W OR WO PTCA, SINGLE CORONARY ARTERY DC11-AO ROOT ANGIO WITH HEART CATH CLINICAL PROFILE AND CO-MORBIDITIES Indications: ACS <= 24 hrs, Worsening Angina, Stable Known CAD, Cardiomyopathy Heart Failure: None Stress/Imaging Stress/Image Study Performed: No Angina Classification Anginal Classification w/in 2 Weeks: CCS III CAD Presentations: Unstable angina. Comorbidities/Risk Factors: Hypertension Dyslipidemia Prior PCI Prior CABG Diabetes Mellitus: Diabetes Therapy: Insulin CONCLUSIONS Normal Left Ventricular systolic function Widely patent stents to LAD, DIAG#1 and non-obstructive ISR of mid OM. Single vessel CAD of the mid DIAG#1 after previosu patent stents. Occluded SVG to DIAG, OM and LPDA. Diffuse, possibly signficant disease in [place] LAD after touchdown site of JONES to LAD. Successful PTCA/[place] mid DIAG#1 with a 2.25 x 12 Promus Synergy, post dilated with a 2.25 x 8 NC balll on; 85%-->0%, no complications. Pt had identical chest pain with stent deployment. RECOMMENDATIONS Referred for immediate PCI Consider complex PCI to [place] LAD with dual injection from JONES To LAD and stent placement through n ative LAD. would require dual access. Highly recommend quitting all tobacco products Follow up with primary technician support engineer Risk factor modification ASA Indefinitley Plavix for at least 12 months Routine post interventional care Refer for Outpatient Cardiac Rehab Manual sheath removal per protocol Follow up with Dr. Menon Consider complex PCI to [facility] LAD through [facility] vessel with imaging via diagnostic catheter engaged into JONES if pt continues to have exertional anginal symptoms despite maximal medical therapy. DESCRIPTION OF PROCEDURE The patient arrived to the procedure lab. The risks and benefits of the procedure as well as a full d escription of our services here and lack of surgical backup were fully explained to the patient and/o r their significant other prior to the catheterization. The Timeout was completed, verifying the chris ect patient and procedure. The patient's procedural site was prepped and draped in the usual fashion. Local anesthetic was given subcutaneously to right groin region with Lidocaine 2%. Using a modified Seldinger technique, arterial access was obtained via the right femoral artery, a 4Fr sheath was inse rted. Left Coronary Artery selective angiography was performed in multiple views using a 4 Fr. JL5 c atheter. Right Coronary Artery selective angiography was then performed in multiple views using a 4 F r. 3DRC catheter. Left internal mammary artery graft to the LAD selective angiography was performed i n multiple views using a 4 Fr. 3DRC catheter. Saphenous Vein graft to the OM 1 selective angiography was performed in multiple views using a 4 Fr. AR MOD 2 catheter, graft occluded.. Left Ve ntriculography was performed in FERNANDEZ projection using a 4 Fr. Pigtail catheter. LV to AO pullback pres sures were then recordedThe images were reviewed and options discussed. A decision was then made to p roceed with an Intervention, IVUS or other adjunct procedure. Arterial sheath was exchanged for a 6 Fr Sheath. EBU 3.75 Guide catheter was inserted and engaged into the LCA. BMW Guide wire was advanced to the 1st Diagonal. 2.0x12 emerge Balloon catheter was ad vanced across lesion in the first diagonal, mid. PTCA balloon inflated at 6 atms for 30 secs. PTCA ba lloon inflated at 6 atms for 29 secs. 2.25x12 Drug Eluting stent was advanced across the lesion in th e first diagonal, mid. 2.25x8 nc emerge Balloon catheter was advanced across lesion in the first diag onal, mid. Angiogram performed post stent deployment. The arterial sheath was sutured in place and capped CORONARY ANGIOGRAPHY DOMINANCE: Left Dominant LEFT HEART ASSESSMENT Left Ventricular Ejection Fraction: by LV Gram 75 % Normal Left Ventricular systolic function Left Ventricular Hypertrophy LVEDP: 20 mmHg Normal LV wall motion LEFT MAIN: No significant disease noted LEFT ANTERIOR DECENDING ARTERY: PROX LAD: Previously placed stent is patent DIAGONAL 1: Proximal - Previously placed stent is patent, Mid - 85 % Stenosis CIRCUMFLEX ARTERY: Mild luminal irregularities less than 30% OM 1: Mid - 50 % Stenosis GRAFTS: JONES graft to the Mid LAD is patent Saphenous Vein graft to the 1st Diagonal is totally occluded Saphenous Vein graft to the 1st OM is totally occluded Saphenous Vein graft to the LPDA is totally occluded INTERVENTION INFORMATION LESION SITE: 1st Diagonal (Mid) Lesion Complexity: Non-High/Non-C, lesion at bifurcation: Yes, thrombus present: No, culprit lesion: Yes Pre Stenosis: 85 % Pre intervention JAMAAL flow: 3 PROCEDURE: Drug Eluting Stent with pre and post dilatation Post Stenosis: 0 % Post intervention JAMAAL flow: 3 Lesion Devices: Stephenson .014 BMW [place] Straight 190cm Medtronic 6 Fr EBU3.75 100cm Guide Catheter Ras Sci EMERGE MR 2.00x12 BALLOON Ras Sci Synergy MR CL[place]ON 2.25x12 Ras Sci NC EMERGE MR 2.25x08 BALLOON COMPLICATIONS No Complications PROCEDURE MEDICATIONS Oxygen: 2 L/min via nasal cannula Heparin 6000 unit(s) IV 01/12/2018 09:40:25 Nitro 200 mcg IC 01/12/2018 09:43:34 Nitro 200 mcg IC 01/12/2018 09:43:34 SUMMARY OF HEMODYNAMIC DATA Time AIR REST ECG 08:52:00 AO 119/64 (87) SA 09:07:20 LV 151/-19, 14 09:33:36 LV 154/-18, 20 09:33:44 LVp 156/-14, 20 09:33:48 AOp 154/61 (97) 09:33:53 Signed By Thai Platt MD On 01/12/2018 10:22:19 Thai Platt MD
[2018-01-12] MEDS: Morphine 2 MG/ML Syringe IV ×2 (10:28→14:14)
[2018-01-12] MEDS: 0.9% Normal Saline 1,000 ML 150 ML IV (10:30)
[2018-01-12] MEDS: Furosemide 40 MG Tablet PO (12:05)
[2018-01-12] MEDS: Venlafaxine XR 150 MG Capsule PO (12:05)
[2018-01-12] MEDS: LORazepam 0.5 MG Tablet PO (12:06)
[2018-01-12] MEDS: Pantoprazole Sodium 20 MG Tablet PO (12:06)
[2018-01-12] MEDS: Hydrocortisone 2.5% Crm 1 APPLIC TOPICAL ×2 (12:06→21:08)
[2018-01-12] MEDS: Pregabalin 50 MG Capsule PO ×2 (12:13→21:20)
[2018-01-12] MEDS: Magnesium Oxide 400 MG Tablet PO ×2 (12:13→21:12)
[2018-01-12 12:26] LABS: Bedside Glucose 217 mg/dL (70-110)
[2018-01-12 12:35] LABS: ACT Activated Clotting Time 142 sec (74-137)
--- NOTE | 2018-01-12 12:56 | PCM.PROGNOTE ---
Subjective: Pt resting comfortably in bed post cath. She reports minimal chest discomfort. Cath report notes she had similar chest pain during the stenting procedure to what she presented with. She is somewhat lightheaded, groggy, somewhat blurry vision. No SOB. Some nausea no vomiting. She underwent PTCA to the mid diagonal. - Physical Exam General: Alert, Oriented x3, Cooperative HEENT: Atraumatic, PERRLA, EOMI, Normocephalic Neck: Supple, No JVD, Negative Carotid Bruits Lungs: Clear to auscultation, Normal air movement Cardiovascular: Regular rate, No murmurs Abdomen: Bowel Sounds Present, Soft, Non Tender, Obese Extremities: No edema, Capillary Refill Less than 3 Seconds Skin: No rashes, No breakdown Musculoskeletal: No Tenderness to Palpation of Joints or Extremities Neurological: Cranial nerves II-XII grossly intact Psych/Mental Status: Normal Affect, Appropriate, Alert and oriented to time, place, person, mood and affect Vital Signs Temp Pulse Resp BP Pulse Ox 97.8 F 64 14 146/62 H 95 01/12/18 10:15 01/12/18 11:30 01/12/18 11:30 01/12/18 11:30 01/12/18 11:30 Oxygen Flow Rate (L/min) 2 Oxygen Delivery Method Room Air Weight: 197 lb 8 oz Body Mass Index (BMI) 30.9 Finger Stick Blood Glucose 348 Intake and Output for Last 24 Hours 01/10/18 01/11/18 01/12/18 23:59 23:59 23:59 Intake Total 240 / 240 360 / 360 Balance 240 / 240 360 / 360 Laboratory Tests Past 24 Hrs 01/11/18 01/11/18 01/11/18 13:59 13:59 17:02 WBC 5.6 RBC 4.64 Hgb 12.8 Hct 40.2 MCV 86.6 MCH 27.6 MCHC 31.8 L RDW 15.8 H RDW Differential 49.8 H Plt Count 160 MPV 12.7 H Immature Gran % (Auto) 0.500 Neut % (Auto) 53.5 Lymph % (Auto) 35.1 [place] % (Auto) 5.4 Eos % (Auto) 5.0 Baso % (Auto) 0.5 Absolute Neuts (auto) 3.0 Absolute Lymphs (auto) 1.96 Total Counted Not Reportable Activated Clotting Time Sodium 136 Potassium 4.4 Chloride 103 Carbon Dioxide 24.0 Anion Gap 9 BUN 20 H Creatinine 1.32 H Estim Creat Clear Calc 44.63 Est GFR (MDRD) Af Amer 53 L Est GFR (MDRD) Non-Af 44 L BUN/Creatinine Ratio 15.2 Glucose 311 H Hemoglobin A1c 10.6 H Calcium 9.0 Magnesium Troponin I < 0.015 Triglycerides Cholesterol LDL Cholesterol VLDL Cholesterol HDL Cholesterol 01/11/18 01/11/18 01/11/18 17:02 17:02 20:25 WBC RBC Hgb Hct MCV MCH MCHC RDW RDW Differential Plt Count MPV Immature Gran % (Auto) Neut % (Auto) Lymph % (Auto) [place] % (Auto) Eos % (Auto) Baso % (Auto) Absolute Neuts (auto) Absolute Lymphs (auto) Total Counted Activated Clotting Time Sodium Potassium Chloride Carbon Dioxide Anion Gap BUN Creatinine Estim Creat Clear Calc Est GFR (MDRD) Af Amer Est GFR (MDRD) Non-Af BUN/Creatinine Ratio Glucose Hemoglobin A1c Calcium Magnesium 1.7 Troponin I < 0.015 < 0.015 Triglycerides Cholesterol LDL Cholesterol VLDL Cholesterol HDL Cholesterol 01/12/18 01/12/18 01/12/18 06:00 06:00 09:59 WBC 5.8 RBC 4.39 Hgb 12.4 Hct 38.0 MCV 86.6 MCH 28.2 MCHC 32.6 RDW 16.0 H RDW Differential 49.6 H Plt Count 159 MPV 12.7 H Immature Gran % (Auto) Neut % (Auto) Lymph % (Auto) [place] % (Auto) Eos % (Auto) Baso % (Auto) Absolute Neuts (auto) Absolute Lymphs (auto) Total Counted Activated Clotting Time 186 H Sodium 139 Potassium 4.3 Chloride 104 Carbon Dioxide 23.0 Anion Gap 12 BUN 20 H Creatinine 1.26 H Estim Creat Clear Calc 46.75 Est GFR (MDRD) Af Amer 56 L Est GFR (MDRD) Non-Af 46 L BUN/Creatinine Ratio 15.9 Glucose 223 H Hemoglobin A1c Calcium 8.9 Magnesium Troponin I Triglycerides 1141 H Cholesterol 249 H LDL Cholesterol TNP VLDL Cholesterol TNP HDL Cholesterol 33 L 01/12/18 12:25 WBC RBC Hgb Hct MCV MCH MCHC RDW RDW Differential Plt Count MPV Immature Gran % (Auto) Neut % (Auto) Lymph % (Auto) [place] % (Auto) Eos % (Auto) Baso % (Auto) Absolute Neuts (auto) Absolute Lymphs (auto) Total Counted Activated Clotting Time 142 H Sodium Potassium Chloride Carbon Dioxide Anion Gap BUN Creatinine Estim Creat Clear Calc Est GFR (MDRD) Af Amer Est GFR (MDRD) Non-Af BUN/Creatinine Ratio Glucose Hemoglobin A1c Calcium Magnesium Troponin I Triglycerides Cholesterol LDL Cholesterol VLDL Cholesterol HDL Cholesterol POC Glucose 01/12/18 01/12/18 01/11/18 12:20 06:58 21:57 POC Glucose 217 H 235 H 311 H 01/11/18 17:12 POC Glucose 178 H Medical Necessity - Tobacco Use Smoking Status: Former smoker Tobacco Use: Non-smoker Assessment/Plan All Active Problems (Last Reviewed 01/04/18 @ 10:06 by DERIC Cabrera) Hallucinations (Acute) Thyroid mass (Acute) Right thyroid nodule (Acute) Sepsis (Acute) Abdominal pain (Acute) CAD (coronary artery disease) (Acute) Acute pancreatitis (Resolved) Chest pain (Resolved) Hypokalemia (Resolved) 1. Chest pain in the setting of severe CAD with prior CABGx 4 stents x 9 - pt underwent PTCA to mid diag this AM. -Dr. Platt notes she may need stent to the LAD as outpatient. -Pt has issues with pilll absorption given her UC, she crushes many pills as they otherwise come out intact. Will need to check with pharmacist about which can safely be crushed. -Continue to have mild chest discomfort now. -Continue asa, plavix, isosorbide, lopressor, high dose statin therapy. 2. DMt2 - poorly controlled - a1c 10.6 with severely elevated triglycerides. continue home insulin + SSI and titrate to response. Follows Se. 3. COPD stable - prn aerosols. Follows Dr. Baca. 4. Ulcerative colitis s/p colectomy, ostomy - wound care consult. Some drainage recently. Afebrile, no leukocytosis. As noted above this is contributing to poor pill absorption. 5. Hx ANKITA 6. HLD - statin 7. HTN - poorly controlled. consider addition of kimberli/arb 8. 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 9. CKDIII - stable. Trend in AM as she had cath. 10. Hx diastolic CHF - does not appear to be in exacerbation - last EF 65% per Echo 07/2017. Defer repeat. Stage 1 diastolic dyfunction 11. Chronic pain syndrome - continue home pain meds. DVT ppx: heparin This patient was seen by Tomas Sun PA-C under the supervision of Doctor Brewster.
--- NOTE | 2018-01-12 13:15 | CRPHASE1 ---
Patient Data/Charges Former Patient:: Phase II Brand Marketing Specialist:: Thai Platt Phase I Charge:: Level I - Education Risk Factors/Lifestyle Smoking Status: Former smoker Hx Hypertension: Yes Hx Diabetes Mellitus Type 2: Yes Hx Metabolic Disorders: Yes Hx Dyslipidemia: Yes Hx Obesity: Yes Height: 1.7 m Weight:: 89.5 kg BMI: 30.9 Post-Menopausal: Yes Stress: Long-standing Caffeine: Yes Family History: Family History (Last Reviewed 01/04/18 @ 10:06 by DERIC Cabrera) Mother CVA (cerebral vascular accident) Diabetes Brother Heart disease Myocardial infarction Pancreatitis Father Cancer Lymphoma Grandmother Myocardial infarction Sister COPD (chronic obstructive pulmonary disease) Family History: COPD, Diabetes, Heart Disease, Hypertension, Pulmonary Disease Past Cardiac Illness: Coronary Artery Disease, Previous PCI w/Stent, Coronary Artery Bypass Graft Laboratory Values: Cardiac Rehab Phase I Labs Hemoglobin A1c 10.6 % (4.2-6.3) H 01/11/18 17:02 Triglycerides 1141 mg/dL (-199) H 01/12/18 06:00 Cholesterol 249 mg/dL (200) H 01/12/18 06:00 LDL Cholesterol TNP 01/12/18 06:00 HDL Cholesterol 33 mg/dL (40-) L 01/12/18 06:00 Phase I Education Given On:: [place], Antiplatelet medication, Diabetes - Type II Hospital Course Pain Description: Sharp Pain Intensity: 2 Cardiac Cath Date:: 01/12/18 Grafts:: 2012 Medical/Surgical History [facility]:: Yes Angina:: Yes CAD:: Yes Pulmonary:: Yes COPD:: Yes Diabetes Type II:: Yes Hypertension:: Yes Dyslipidemia:: Yes Arrhythmias:: Yes Depression:: Yes Anxiety:: Yes CABG: Yes PTCA:: Yes Discharge/Home/Social Eval Discharge Disposition: Home
--- NOTE | 2018-01-12 13:19 | CRPHASE1_ITS ---
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:: Thai Platt Phase I Charge:: Level I - Education Risk Factors/Lifestyle Smoking Status: Former smoker Hx Hypertension: Yes Hx Diabetes Mellitus Type 2: Yes Hx Metabolic Disorders: Yes Hx Dyslipidemia: Yes Hx Obesity: Yes Height: 1.7 m Weight:: 89.5 kg BMI: 30.9 Post-Menopausal: Yes Stress: Long-standing Caffeine: Yes Family History: Family History (Last Reviewed 01/04/18 @ 10:06 by DERIC Cabrera) Mother CVA (cerebral vascular accident) Diabetes Brother Heart disease Myocardial infarction Pancreatitis Father Cancer Lymphoma Grandmother Myocardial infarction Sister COPD (chronic obstructive pulmonary disease) Family History: COPD, Diabetes, Heart Disease, Hypertension, Pulmonary Disease Past Cardiac Illness: Coronary Artery Disease, Previous PCI w/Stent, Coronary Artery Bypass Graft Laboratory Values: Cardiac Rehab Phase I Labs Hemoglobin A1c 10.6 % (4.2-6.3) H 01/11/18 17:02 Triglycerides 1141 mg/dL (-199) H 01/12/18 06:00 Cholesterol 249 mg/dL (200) H 01/12/18 06:00 LDL Cholesterol TNP 01/12/18 06:00 HDL Cholesterol 33 mg/dL (40-) L 01/12/18 06:00 Phase I Education Given On:: [place], Antiplatelet medication, Diabetes - Type II Hospital Course Pain Description: Sharp Pain Intensity: 2 Cardiac Cath Date:: 01/12/18 Grafts:: 2012 Medical/Surgical History [place]:: Yes Angina:: Yes CAD:: Yes Pulmonary:: Yes COPD:: Yes Diabetes Type II:: Yes Hypertension:: Yes Dyslipidemia:: Yes Arrhythmias:: Yes Depression:: Yes Anxiety:: Yes CABG: Yes PTCA:: Yes Discharge/Home/Social Eval Discharge Disposition: Home
--- NOTE | 2018-01-12 13:19 | CRPH1.INSTRU ---
General Education CAD and cardiac anatomy and function:: Patient communicates acknowledgment Explanation of diagnoses and procedures:: Patient communicates acknowledgment Sign/Symptoms of MA:: Patient communicates acknowledgment Antiplatelet therapy: Patient communicates acknowledgment Proper use of NTG-SL: Patient communicates acknowledgment Emergency procedures and activation of EMS: Patient communicates acknowledgment Compliance of all prescribed medications: Patient communicates acknowledgment Smoking Patient Nicotine/Smoking Risk Factors Are:: Non-smoker Dyslipidemia Patient Dyslipidemia Risk Factors Are:: Total Cholesterol - 1141, Triglycerides - 249, HDL - 33 Recommendations Include:: Lipid profile provided Dyslipidemia Response Code:: Patient communicates acknowledgment Overweight/Obesity Patient Overweight/Obesity Risk Factors Are:: Obesity - > or = 30 Recommendations Include:: Weight loss of 5-10% - GOING TO WATER AEROBICS FOR BACK PAIN Hypertension Recommendations Include:: Maintain BP <130/85, BP <130/80 if diabetic, DASH dietary guidelines, Decrease/maintain normal body weight, Moderation of ETOH Heart Disease Patient Heart Disease Risk Factors Are:: Family history of heart disease < 65 years old, Previous cardiac event Heart Disease Response Code:: Patient communicates acknowledgment Diabetes Patient Diabetes Risk Factors Are:: Elevated blood sugars, Post-op hyperglycemia Recommendations Include:: Maintain fasting blood sugars 70-110 md/dL, Maintain HgbA1c of 6% or less, Monitor blood sugar as prescribed, Diabetic dietary guidelines, Decrease/maintain body weight Metabolic Syndrome Patient Metabolic Syndrome Risk Factors Are [3 of 5]:: Fasting blood sugar > 100 mg/dL, Waist circumference > 35 [female] or 40 [male], High triglyceride >150, Hypertension Recommendations Include:: Patient is diabetic Metabolic Syndrome Response Code:: Patient communicates acknowledgment Sedentary Sedentary Response Code:: Patient communicates acknowledgment Stress Recommendations Include:: Identification of stressors, and assessment of coping skills, Stress management techniques - GOING TO BEHAVORIAL DEPARTMENT 3 DAY A WEEK Stress Response Code:: Patient communicates acknowledgment
[2018-01-12] MEDS: Insulin Lispro 100 UNIT/ML INSULN.PEN SC ×2 (13:33→21:22)
--- NOTE | 2018-01-12 14:11 | CASEMGMT ---
BIJAL/GERARDO in echart, SW printed and placed in paper chart. MOODY Gracia, ORTHOPEDIC DENTIST
[2018-01-12] MEDS: Ondansetron 4 MG/2 ML Vial IV (14:13)
[2018-01-12 17:51] LABS: Bedside Glucose 145 mg/dL (70-110)
[2018-01-12] MEDS: Heparin Injection (Vial) 5,000 UNIT/ML VIAL 5000 UNIT SC (21:08)
[2018-01-12] MEDS: Atorvastatin Calcium 80 MG Tablet PO (21:10)
[2018-01-12] MEDS: Baclofen 10 MG Tablet PO (21:10)
[2018-01-12] MEDS: Acetaminophen 325 MG Tablet 650 MG PO (21:19)
[2018-01-12 21:36] LABS: Bedside Glucose 252 mg/dL (70-110)
[2018-01-13] VITALS (15 sets, daily range): BP systolic 114–146; BP diastolic 43–63; PULSE 64–92; RESP 11–19; TEMP 37.1; O2SAT 90–100
[2018-01-13 04:36] LABS: Hematocrit 37.9 % (37-47); Hemoglobin 12.4 g/dl (12.0-15.0); Mean Corp Hgb Conc 32.7 g/gl (32-36); Mean Corpuscular Hgb 28.2 pg (27.0-32.0); Mean Corpuscular Volume 86.1 fL (81-99); Mean Platelet Vol. 12.2 fl (6.2-12.0); Platelet Count 160 K/mm3 (150-450); RBC Distribution Width CV 15.8 % (11.6-14.6); RBC Distribution Width SD 48.6 fl (35.1-43.9); White Blood Count 5.1 K/mm3 (4.4-11.0)
[2018-01-13 04:37] LABS: Scan Indicated on CBC? Y/N NO
[2018-01-13 04:52] LABS: Anion Gap 11 (5-15); BUN 16 mg/dL (7-18); BUN/Creat Ratio 13.6 RATIO (10-20); Calcium,Total 8.7 mg/dL (8.5-10.1); Chloride 100 mmol/L (98-107); Creatinine, Serum 1.18 mg/dL (0.55-1.02); EST Glomerular Filtration Rate 50 mL/min (>60); Est Glom Filt Rate - Afr Amer 60 mL/min (>60); Estimated Creatinine Clearance 49.92 ml/min; Glucose 232 mg/dL (74-106); Magnesium 1.9 mg/dL (1.6-2.6); Potassium 4.2 mmol/L (3.5-5.1); Sodium Level 137 mmol/L (136-145)
[2018-01-13] MEDS: Isosorbide DN 30 MG Tablet PO (06:24)
[2018-01-13 06:35] LABS: Bedside Glucose 224 mg/dL (70-110)
[2018-01-13] MEDS: Ipratropium/Albuterol Sulfate 3 ML AMPUL.NEB INHALATION (06:59)
--- NOTE | 2018-01-13 08:22 | PCM.PN.CARD ---
Subjectve: Patient seen and evaluated. Objective: Vital Signs Temp Pulse Resp BP Pulse Ox 98.8 F 68 12 130/56 H 100 01/13/18 00:00 01/13/18 07:00 01/13/18 07:00 01/13/18 07:00 01/13/18 07:00 Oxygen Flow Rate (L/min) 2 Oxygen Delivery Method Room Air Weight: 197 lb 5.019 oz Body Mass Index (BMI) 30.9 Finger Stick Blood Glucose 348 Intake and Output for Last 24 Hours 01/11/18 01/12/18 01/13/18 23:59 23:59 23:59 Intake Total 240 / 240 2030 / 2030 175 / 175 Output Total 2150 / 2150 Balance 240 / 240 -120 / -120 175 / 175 General: Awake, Alert, Oriented x 3 HEENT: PERRL, EOMI, Sclera Non Icteric Neck: Supple, Good ROM, No Lymph Node Enlargement Lungs: Clear to auscultation Cardiovascular: Regular Rhythm, Normal S1, Normal S2, No Murmurs, No Rubs, No Gallops Vascular: No Carotid Bruits, Normal Femoral Pulses, Normal Radial Pulses, Normal Dorsalis Pedal Pulse, Normal Posterior Tibial Pulses Abdomen: Bowel Sounds Present, Soft, Non Tender, No HSM, No Organomegaly Extremities: No Cyanosis, No Clubbing, No edema Neurological: No Focal Motor or Sensory Deficit Psych/Mental Status: Appropriate 01/13/18 04:25: WBC 5.1, RBC 4.40, Hgb 12.4, Hct 37.9, MCV 86.1, MCH 28.2, MCHC 32.7, RDW 15.8 H, RDW Differential 48.6 H, Plt Count 160, MPV 12.2 H 01/13/18 04:25: Sodium 137, Potassium 4.2, Chloride 100, Carbon Dioxide 26.0, Anion Gap 11, BUN 16, Creatinine 1.18 H, Est GFR (MDRD) Af Amer 60, Est GFR (MDRD) Non-Af 50 L, BUN/Creatinine Ratio 13.6, Glucose 232 H, Calcium 8.7, Magnesium 1.9 Rhythm: EKG: ECHO: Stress Test: Cardiac Cath: PCI: CT Surgery: Holter monitor: EPS: PPM: CXR: Chest CT Scan: Medical Necessity - Tobacco Use Smoking Status: Former smoker Tobacco Use: Non-smoker Assessment/Plan 1. Chest pain Patient presented with dynamic EKG changes and chest discomfort. She underwent coronary angiogram and eventually underwent angioplasty of the diagonal vessel successfully. She did have some chest discomfort which was thought not to be coronary in origin. The plan at this time would be to continue her on her current medical therapy. No plans for further coronary intervention at this time are recommended. Thank you for allowing me to participate in the care of your patient. Please don't hesitate to call if any issues arise Will schedule office follow up
--- NOTE | 2018-01-13 08:25 | PN.CARD_ITS ---
Subjectve: Patient seen and evaluated. Objective: Vital Signs Temp Pulse Resp BP Pulse Ox 98.8 F 68 12 130/56 H 100 01/13/18 00:00 01/13/18 07:00 01/13/18 07:00 01/13/18 07:00 01/13/18 07:00 Oxygen Flow Rate (L/min) 2 Oxygen Delivery Method Room Air Weight: 197 lb 5.019 oz Body Mass Index (BMI) 30.9 Finger Stick Blood Glucose 348 Intake and Output for Last 24 Hours 01/11/18 01/12/18 01/13/18 23:59 23:59 23:59 Intake Total 240 / 240 2030 / 2030 175 / 175 Output Total 2150 / 2150 Balance 240 / 240 -120 / -120 175 / 175 General: Awake, Alert, Oriented x 3 HEENT: PERRL, EOMI, Sclera Non Icteric Neck: Supple, Good ROM, No Lymph Node Enlargement Lungs: Clear to auscultation Cardiovascular: Regular Rhythm, Normal S1, Normal S2, No Murmurs, No Rubs, No Gallops Vascular: No Carotid Bruits, Normal Femoral Pulses, Normal Radial Pulses, Normal Dorsalis Pedal Pulse, Normal Posterior Tibial Pulses Abdomen: Bowel Sounds Present, Soft, Non Tender, No HSM, No Organomegaly Extremities: No Cyanosis, No Clubbing, No edema Neurological: No Focal Motor or Sensory Deficit Psych/Mental Status: Appropriate 01/13/18 04:25: WBC 5.1, RBC 4.40, Hgb 12.4, Hct 37.9, MCV 86.1, MCH 28.2, MCHC 32.7, RDW 15.8 H, RDW Differential 48.6 H, Plt Count 160, MPV 12.2 H 01/13/18 04:25: Sodium 137, Potassium 4.2, Chloride 100, Carbon Dioxide 26.0, Anion Gap 11, BUN 16, Creatinine 1.18 H, Est GFR (MDRD) Af Amer 60, Est GFR (MDRD) Non-Af 50 L, BUN/Creatinine Ratio 13.6, Glucose 232 H, Calcium 8.7, Magnesium 1.9 Rhythm: EKG: ECHO: Stress Test: Cardiac Cath: PCI: CT Surgery: Holter monitor: EPS: PPM: CXR: Chest CT Scan: Medical Necessity - Tobacco Use Smoking Status: Former smoker Tobacco Use: Non-smoker Assessment/Plan 1. Chest pain Patient presented with dynamic EKG changes and chest discomfort. She underwent coronary angiogram and eventually underwent angioplasty of the diagonal vessel successfully. She did have some chest discomfort which was thought not to be coronary in origin. The plan at this time would be to continue her on her current medical therapy. * No plans for further coronary intervention at this time are recommended. * * Thank you for allowing me to participate in the care of your patient. Please don't hesitate to call if any issues arise * Will schedule office follow up
[2018-01-13] MEDS: Aspirin E.C. 81 MG Tablet PO (08:27)
[2018-01-13] MEDS: Insulin Lispro 100 UNIT/ML INSULN.PEN 22 UNIT SC (08:27)
[2018-01-13] MEDS: Insulin Lispro 100 UNIT/ML INSULN.PEN SC (08:28)
[2018-01-13] MEDS: Morphine 2 MG/ML Syringe IV (08:49)
--- NOTE | 2018-01-13 09:33 | DCINST_ITS ---
You will use the following diet at home:: Cardiac Your food should be the consistency of: Regular Your liquids should be the consistency of: Regular/Thin Discharge Activity: Return to Normal Activity Keep extremity elevated above heart level: Right Leg Call your doctor if your incision/area has: Continuous Slow Oozing, Sudden Increased Bleeding, Increased Pain/ Swelling Call your doctor if you observe: Shortness of breath, Chest pain Instructions: ED Chest Pain NonCardiac Allergies/Adverse Reactions: Allergies cinnamon [Cinnamon] Allergy (Verified 01/11/18 14:00) Anaphylaxis Influenza Virus Vaccines Allergy (Verified 01/11/18 14:00) Shortness of breath liraglutide [From Victoza] Allergy (Verified 01/11/18 14:00) Anaphylaxis metronidazole [From Flagyl] Allergy (Verified 01/11/18 14:00) Hives Metronidazole HCl [From Flagyl] Allergy (Verified 01/11/18 14:00) Hives Penicillins Allergy (Verified 01/11/18 14:00) Hives Sulfa (Sulfonamide Antibiotics) Allergy (Verified 01/11/18 14:00) Hives ciprofloxacin [From Cipro] Adverse Reaction (Verified 01/11/18 14:00) Nausea codeine Adverse Reaction (Verified 01/11/18 14:00) Stops Ileostomy dicyclomine HCl [From Bentyl] Adverse Reaction (Verified 01/11/18 14:00) Nausea metformin HCl [From Glucophage] Adverse Reaction (Verified 01/11/18 14:00) Nausea Vccagae-Mfi-Hrk Reductase Inhibitor Adverse Reaction (Verified 01/11/18 14:00) Nausea/joints ache Medications to take at Discharge Ondansetron HCl [Zofran] 4 mg PO Q8H PRN PRN #20 tab 09/05/16 Baclofen 10 mg PO QHS 11/24/16 loperamide 2 mg tablet 2 mg PO 4X/DAY PRN PRN tab 02/12/17 insulin aspart U- 100 100 unit/mL subcutaneous pen See Protocol SC TIDCM ml 03/23/17 miconazole nitrate 2 % topical powder 1 applic TOPICAL DAILY 03/23/17 tramadol 50 mg tablet 50 mg PO BID PRN PRN tab 05/05/17 Hydrocortisone 1 applic TOPICAL BID 06/02/17 nitroglycerin 0.4 mg sublingual tablet 0.4 mg SUBLINGUAL Q5M PRN #25 tab 06/08/17 Furosemide [Lasix] 40 mg PO DAILY 07/07/17 insulin glargine (U-100) 100 unit/mL (3 mL) subcutaneous pen 80 units SC BID ml 09/02/17 isosorbide dinitrate 30 mg tablet 30 mg PO TID #90 tab 09/21/17 magnesium oxide 400 mg (241.3 mg magnesium) tablet 400 mg PO BID #60 tab 09/21/17 metoprolol tartrate 50 mg tablet 75 mg PO BID #90 tab 09/21/17 buprenorphine 7.5 mcg/hour weekly transdermal patch 1 patch TRANSDERMAL QWEEK 10/18/17 omeprazole 20 mg capsule,delayed release 20 mg PO DAILY #90 cap 10/19/17 pregabalin 50 mg capsule 50 mg PO BID #60 cap 10/19/17 calcium carbonate 600 mg calcium (1,500 mg) tablet 600 mg PO BID #60 tab 11/30/17 cholecalciferol (vitamin D3) 2,000 unit capsule 2,000 unit PO DAILY #90 cap 11/30/17 lorazepam 0.5 mg tablet 0.5 mg PO QHS PRN #30 tab 01/10/18 Aspirin E.C. [Ecotrin] 81 mg PO DAILY 01/11/18 Insulin Aspart [Novolog Flexpen] 22 units SQ TIDCM 01/11/18 Venlafaxine HCl [Effexor Xr] 150 mg PO DAILY 01/11/18 Atorvastatin Calcium [Lipitor] 80 mg PO QHS #30 tab 01/13/18 Clopidogrel Bisulfate [Plavix] 75 mg PO DAILY #30 tab 01/13/18 The following prescriptions were given: Atorvastatin Calcium [Lipitor] 80 mg PO QHS #30 tab Clopidogrel Bisulfate [Plavix] 75 mg PO DAILY #30 tab Primary Care Physician: Mala Mcgrath MD [Primary Care Provider] - Within 2 Weeks Test Results: Test results from this visit will be discussed in further detail at your follow- up appointment, if applicable. Please Follow Up With: Fish Menon MD When: 2-4 weeks Proposed Discharge Date: 01/13/18 Cardiac Rehab Referral Please Follow Up with Cardiac Rehabilitation:: 2 Weeks Cardiac Rehabilitation was informed of this Referral:: No
--- NOTE | 2018-01-13 09:37 | DS.PCM_ITS ---
Discharge Date and Diagnosis - Problem List Patient Problems: Active and Suspected Problems (Last Reviewed 01/04/18 @ 10:06 by DERIC Cabrera) Unstable angina (Acute) Date of Admission: 01/11/18 Date of Discharge: 01/13/18 - Primary Discharge Diagnosis Active and Suspected Problems (Last Reviewed 01/04/18 @ 10:06 by DERIC Cabrera) Unstable angina (Acute) - Secondary Discharge Diagnosis Chronic Problems (Last Reviewed 01/04/18 @ 10:06 by DERIC Cabrera) Thyroid mass (Chronic) Right thyroid nodule (Chronic) 1.4 centimeter right sided nodule on CT scan Multiple falls (Chronic) Shortness of breath (Chronic) Syncope (Chronic) Vertigo (Chronic) Chronic renal insufficiency (Chronic) Sleep apnea (Chronic) Menieres disease (Chronic) Ulcerative colitis (Chronic) Ileostomy status (Chronic) Surgical wound dehiscence (Chronic) CAD (coronary artery disease) (Chronic) Hyperlipidemia (Chronic) Continues on statin without side effect. Reports taking as directed. No recent labs noted. Diarrhea (Chronic) Anemia of chronic renal failure, stage 3 (moderate) (Chronic) Obstructive sleep apnea (Chronic) Psoriasis (Chronic) Heart failure with preserved ejection fraction (Chronic) Benign essential HTN (Chronic) Depression (Chronic) DM2 (diabetes mellitus, type 2) (Chronic) FCHL (familial combined hyperlipidemia) (Chronic) Ulcerative colitis (Chronic) Status post ileostomy Hx of coronary artery disease (Chronic) Status post CABG, failed, status post multiple stents. Pulmonary hypertension (Chronic) History of coronary artery stent placement (Chronic ~2012) Mid LAD and Cx 2012, D1 and prox OM1 2012, Prox SVG, Distal SVG to the Mid OM 2012 S/P CABG (coronary artery bypass graft) (Chronic ~2012) JONES to LAD, SVG diag, SVG to OM, SVG to left PDA Chronic respiratory failure (Chronic) COPD (chronic obstructive pulmonary disease) (Chronic) Hospital Course and Treatment Imaging Results: Clinical Impression(s) from Imaging Studies Chest X-Ray 01/11/18 14:49 IMPRESSION: Normal x-ray examination of the chest. Electronically Signed: Eric Spencer MD at 15:26 EST Tel [phone], Service support , Fish Menon MD; Thai Platt MD--cardiology Operations: None Procedures: Cardiac catheterization Summary of Care Provided: The patient is a 57 year old F presents with crushing chest pain. Is a known patient with known coronary artery disease. Patient had serial troponins given her symptomatology, cardiology was consulted. He underwent a left heart catheterization on the seventh and went percutaneous coronary intervention with a drug-eluting stents to the mid diagonal artery. Patient tolerated procedure well and had no sequelae afterwards. Patient will be discharged today with instructions to continue with dual antiplatelet therapy and been impressed upon her several times to take Plavix daily so as to prevent in-stent thrombosis. Patient was continue with high intensity statin with atorvastatin 80 mg. Patient will continue aspirin as well. [] Patient Problems: Active and Suspected Problems (Last Reviewed 01/04/18 @ 10:06 by Hollie Fulton NP-C) Unstable angina (Acute) - Physical Exam General: Alert, Cooperative, No apparent distress HEENT: Atraumatic, Normocephalic Oral: Moist Mucosa, No Gingival or Mucosal Lesions/ Ulcerations Neck: No Nodes, Thyroid Normal Size and Texture Lungs: Clear to auscultation, Normal air movement, No rhonchi, No wheeze Cardiovascular: Regular rate, Regular Rhythm, Normal S1, Normal S2, No murmurs Abdomen: Bowel Sounds Present, Soft, Non Tender, Non-Distended, No Hepato-sple nomegaly Extremities: No edema, No Calf Tenderness Vital Signs Temp Pulse Resp BP Pulse Ox 37.1 C 81 12 130/56 H 100 01/13/18 00:00 01/13/18 08:00 01/13/18 07:00 01/13/18 07:00 01/13/18 07:00 Oxygen Flow Rate (L/min) 2 Oxygen Delivery Method Room Air Weight: 89.5 kg Body Mass Index (BMI) 30.9 Finger Stick Blood Glucose 348 Intake and Output for Last 24 Hours 01/11/18 01/12/18 01/13/18 23:59 23:59 23:59 Intake Total 240 / 240 2029 / 2030 175 / 175 Output Total 2150 / 2150 Balance 240 / 240 -120 / -120 175 / 175 Laboratory Tests Past 24 Hrs 01/12/18 01/12/18 01/13/18 09:59 12:25 04:25 WBC 5.1 RBC 4.40 Hgb 12.4 Hct 37.9 MCV 86.1 MCH 28.2 MCHC 32.7 RDW 15.8 H RDW Differential 48.6 H Plt Count 160 MPV 12.2 H Activated Clotting Time 186 H 142 H Sodium Potassium Chloride Carbon Dioxide Anion Gap BUN Creatinine Estim Creat Clear Calc Est GFR (MDRD) Af Amer Est GFR (MDRD) Non-Af BUN/Creatinine Ratio Glucose Calcium Magnesium 01/13/18 04:25 WBC RBC Hgb Hct MCV MCH MCHC RDW RDW Differential Plt Count MPV Activated Clotting Time Sodium 137 Potassium 4.2 Chloride 100 Carbon Dioxide 26.0 Anion Gap 11 BUN 16 Creatinine 1.18 H Estim Creat Clear Calc 49.92 Est GFR (MDRD) Af Amer 60 Est GFR (MDRD) Non-Af 50 L BUN/Creatinine Ratio 13.6 Glucose 232 H Calcium 8.7 Magnesium 1.9 POC Glucose 01/13/18 01/12/18 01/12/18 06:29 21:21 17:32 POC Glucose 224 H 252 H 145 H 01/12/18 12:20 POC Glucose 217 H Discharge Diet: Low fat/ Low Cholesterol Discharge Activity: Return to Normal Activity Keep extremity elevated above heart level: Right Leg Call your doctor if your incision/area has: Continuous Slow Oozing, Sudden Increased Bleeding, Increased Pain/ Swelling Call your doctor if you observe: Shortness of breath, Chest pain Home Medications: Medications to take at Discharge Ondansetron HCl [Zofran] 4 mg PO Q8H PRN PRN #20 tab 09/05/16 Baclofen 10 mg PO QHS 11/24/16 loperamide 2 mg tablet 2 mg PO 4X/DAY PRN PRN tab 02/12/17 insulin aspart U- 100 100 unit/mL subcutaneous pen See Protocol SC TIDCM ml 03/23/17 miconazole nitrate 2 % topical powder 1 applic TOPICAL DAILY 03/23/17 tramadol 50 mg tablet 50 mg PO BID PRN PRN tab 05/05/17 Hydrocortisone 1 applic TOPICAL BID 06/02/17 nitroglycerin 0.4 mg sublingual tablet 0.4 mg SUBLINGUAL Q5M PRN #25 tab 06/08/17 Furosemide [Lasix] 40 mg PO DAILY 07/07/17 insulin glargine (U-100) 100 unit/mL (3 mL) subcutaneous pen 80 units SC BID ml 09/02/17 isosorbide dinitrate 30 mg tablet 30 mg PO TID #90 tab 09/21/17 magnesium oxide 400 mg (241.3 mg magnesium) tablet 400 mg PO BID #60 tab 09/21/17 metoprolol tartrate 50 mg tablet 75 mg PO BID #90 tab 09/21/17 buprenorphine 7.5 mcg/hour weekly transdermal patch 1 patch TRANSDERMAL QWEEK 10/18/17 omeprazole 20 mg capsule,delayed release 20 mg PO DAILY #90 cap 10/19/17 pregabalin 50 mg capsule 50 mg PO BID #60 cap 10/19/17 calcium carbonate 600 mg calcium (1,500 mg) tablet 600 mg PO BID #60 tab 11/30/17 cholecalciferol (vitamin D3) 2,000 unit capsule 2,000 unit PO DAILY #90 cap 11/30/17 lorazepam 0.5 mg tablet 0.5 mg PO QHS PRN #30 tab 01/10/18 Aspirin E.C. [Ecotrin] 81 mg PO DAILY 01/11/18 Insulin Aspart [Novolog Flexpen] 22 units SQ TIDCM 01/11/18 Venlafaxine HCl [Effexor Xr] 150 mg PO DAILY 01/11/18 Atorvastatin Calcium [Lipitor] 80 mg PO QHS #30 tab 01/13/18 Clopidogrel Bisulfate [Plavix] 75 mg PO DAILY #30 tab 01/13/18 Following Prescrptions Were Given to Patient: Atorvastatin Calcium [Lipitor] 80 mg PO QHS #30 tab Clopidogrel Bisulfate [Plavix] 75 mg PO DAILY #30 tab Primary Care Physician: Mala Mcgrath MD [Primary Care Provider] - Within 2 Weeks Please Follow Up With: Fish Menon MD When: 2-4 weeks Patient Instructions: ED Chest Pain NonCardiac Disposition: Home Minutes spent on discharge:: 32 Patient Condition:: Good Medical Necessity - Tobacco Use Smoking Status: Former smoker Tobacco Use: Non-smoker Meaningful Use Info Meaningful Use Diagnoses (Choose all that apply): None applicable Code Visit Inpatient E&M: 13223 Disch Hosp
[2018-01-13] MEDS: Magnesium Oxide 400 MG Tablet PO (09:52)
[2018-01-13] MEDS: Clopidogrel Bisulfate 75 MG Tablet PO (09:52)
[2018-01-13] MEDS: Furosemide 40 MG Tablet PO (09:52)
[2018-01-13] MEDS: Venlafaxine XR 150 MG Capsule PO (09:53)
[2018-01-13] MEDS: Metoprolol Tartrate 50 MG Tablet 75 MG PO (09:55)
[2018-01-13] MEDS: Pantoprazole Sodium 20 MG Tablet PO (09:55)
--- NOTE | 2018-01-13 10:00 | EKG12_ITS ---
Test Reason : AM EKG Blood Pressure : / mmHG Vent. Rate : 067 BPM Atrial Rate : 067 BPM P-R Int : 172 ms QRS Dur : 092 ms QT Int : 418 ms P-R-T Axes : 030 -18 147 degrees QTc Int : 441 ms Normal sinus rhythm Left ventricular hypertrophy with repolarization abnormality Abnormal ECG When compared with ECG of 12-JAN-2018 15:13, MANUAL COMPARISON REQUIRED, DATA IS UNCONFIRMED Confirmed by SARKIS WOLF ([id number]), photograph editor MALIK HULL ([id number]) on 01/17/2018 2:54:16 PM Referred By: TAYLOR Confirmed By:SARKIS WOLF
[2018-01-13] MEDS: Pregabalin 50 MG Capsule PO (10:06)
== END 2018-01-13 11:25 | disposition home or self-care (01) ==
LOC: ED 15:27 → PCU 15:29 → ICU 01-12 10:07
PROVIDERS: Internal Medicine; Internal Medicine Cardiovascular Disease; Admitting Provider Family Medicine; Emergency Provider Emergency Medicine; Family Provider Internal Medicine; PCP Internal Medicine
DX: I25.110 Atherosclerotic heart disease of native coronary artery with unstable angina pectoris (principal); J44.9 Chronic obstructive pulmonary disease, unspecified; E11.22 Type 2 diabetes mellitus with diabetic chronic kidney disease; E11.65 Type 2 diabetes mellitus with hyperglycemia; G89.4 Chronic pain syndrome; J96.11 Chronic respiratory failure with hypoxia; I50.32 Chronic diastolic (congestive) heart failure; I13.0 Hypertensive heart and chronic kidney disease with heart failure and stage 1 through stage 4 chronic kidney disease, or unspecified chronic kidney disease; N18.3 Chronic kidney disease, stage 3 (moderate); F32.9 Major depressive disorder, single episode, unspecified; F41.9 Anxiety disorder, unspecified; E66.9 Obesity, unspecified; E78.49 Other hyperlipidemia; Z95.1 Presence of aortocoronary bypass graft; G47.33 Obstructive sleep apnea (adult) (pediatric); I27.20 Pulmonary hypertension, unspecified; Z68.30 Body mass index [BMI] 30.0-30.9, adult; Z79.899 Other long term (current) drug therapy; Z79.4 Long term (current) use of insulin; Z79.82 Long term (current) use of aspirin; Z79.02 Long term (current) use of antithrombotics/antiplatelets; Z71.3 Dietary counseling and surveillance; Z93.2 Ileostomy status; Z87.891 Personal history of nicotine dependence
CPT/HCPCS: 36415; 71045; 80048; 80061; 82962; 83036; 83735; 84484; 85025; 85027; 85347; 92928; 93005; 93459; 93567; 94640; 96361; 96372; 96374; 96375; 96376; 97802; 99218; 99285; J7030; Q9967; C1725; C1769; C1874; C1887; C1894; C9600; G0378; J2405

== ENCOUNTER → 2018-01-24 20:00 | Outpatient (CLI) | payer MEDICAID, SELFPAY | PROVIDERS: Family Provider Internal Medicine; PCP Internal Medicine; Visit Provider Nurse Practitioner Acute Care | DX: G47.33 Obstructive sleep apnea (adult) (pediatric) (principal) | CPT/HCPCS: 95811 ==

== ENCOUNTER 2018-01-26 09:00 | Outpatient (RCR) | payer MEDICAID, SELFPAY ==
[2018-01-12 13:19] VITALS: BMI 30.9
--- NOTE | 2018-01-26 09:05 | BH.SGPN.GN ---
Behaviors/Verbalizations/Mental Status: [] Pt eye contact fair, casually dressed, motor activity restless, speech normal rate and tone, mood depressed, constricted affect, thoughts linear and intact, no evidence of delusions or hallucinations. Reviewed client?s symptom tracker, no signs of suicidal ideation, plan, or intent as of today. Client Response/Progress/Benefit: [] Pt listened attentively to peers and contributed positively to discussion. Pt shared she is feeing extremely ill today. Pt gave brief history of her many medical problems related to her heart and diabetes. Pt states she has chronic pain due to her many medical complications. Pt reported her medical conditions have contributed to mental health problems. Pt's first day in IOP, seemed to benefit from support from peers and expressing thoughts and feelings. Pt to continue IOP level of care to stabilize mood, improve daily functioning, and prevent decompensation. Narrative Note: []
--- NOTE | 2018-01-26 10:10 | BH.SGPN.GN ---
Behaviors/Verbalizations/Mental Status: [] Eye contact is good. Motor activity is appropriate. Appearance is casual. Speech is Appropriate. Mood is depressed. Affect is flat. Thoughts are linear and logical. No evidence of psychosis. Client Response/Progress/Benefit: [] Pt was an active participant in group discussion and activity. Worked with the group on defining coping skills as methods or strategies that one uses to manage stressful situations and emotions. Group brainstormed some internal and external coping skills. Along with the group discussed how inappropriate coping skills (isolation) effect us and at times can cause more problems. Pt admits to using ineffective coping skills due mostly to lack of alternatives. Also along with other group members discussed the ways in which appropriate coping skills help us manage our emotions and improve wellness. Reports that listening and trying other options as well as seeking and utilizing support would be beneficial. Progress noted as pt was able to identify internal and external coping skills as well as the effect of good and bad coping skills have on our well-being. Will continue in IOP to maintain safety, prevent decompensation, and stabilize mood. Narrative Note: []
--- NOTE | 2018-01-26 13:57 | BH.COMM ---
Communication Note - Communication with Client Communication Note: Therapist met with client briefly after group to build rapport, introduce self as therapist, and identify treatment goals. Client shared group went well for her and wants to work on getting out of this funk. Client's treatment goals included reducing depression and anxiety while getting back to things she used to enjoy such as art and painting. Client stated she is unable to make it in Wednesday to see the [facility] psychiatrist due to conflicting appointments. Client reports plan to attend [facility] Wednesday01/31/18.
--- NOTE | 2018-01-26 14:02 | BH.COMM_ITS ---
Communication Note - Communication with Client Communication Note: Therapist met with client briefly after group to build rapport, introduce self as therapist, and identify treatment goals. Client shared group went well for her and wants to work on getting out of this funk. Client's treatment goals included reducing depression and anxiety while getting back to things she used to enjoy such as art and painting. Client stated she is unable to make it in Wednesday to see the [facility] psychiatrist due to conflicting appointments. Client reports plan to attend [facility] Wednesday01/31/18.
--- NOTE | 2018-01-26 16:04 | BH.MTP ---
[facility] Treatment Plan - Patient Information Program Physician:: Naz Melissa Primary Therapist:: Fior Burch - Psychiatric Diagnoses Psychiatric Diagnoses:: Major depressive disorder, recurrent, severe Diagnosis Code(s):: F33.2 - Estimated LOS Estimated LOS (in weeks):: 6 Problem/Goal #1 - Problem/Goal #1 Stated Goal:: Client will reduce depression, feelings of hopelessness, and anhedonia due to Major Depressive Disorder through the Intensive Outpatient Program. Description of Barriers: Client's current medical issues may be a barrier to treatment as client reports she continues to struggle with feeling sick and has multiple medical appointments weekly. Client reports relationship and financial stressors that cause stress and exacerbate depressive symptoms. Client has few social supports and has not been able to engage in activities she once enjoyed. Client stated she has been experiencing memory issues. Lastly, client shared she has a history of knowing what I need to do, but not following through which could hinder progress. Functional Impact: Client is a 57-year-old female who was referred to [facility] by her PCP due to worsening depressive symptoms and occasional suicidal thoughts. Client presents with significant medical issues that impact client's quality of life and functioning. In addition to health issues, client also reports stressors with relationships and finances. Client endorses erratic sleep, depressed mood, anhedonia, lack of energy, hopelessness, crying spells, and difficulty concentrating. Client also presents with ruminations and significant worrying. Client reports visual and auditory hallucinations within the last month which client reports belief were caused by medications. Client's mental health and medical symptoms impact client's overall functioning and well-being. Goal Relevant Strengths/Supports: Client described herself as resilient, easy going, loyal, and I don't give up. Client also is creative, artistic, and intelligent. - Objectives Objective #1 Stated Objective: Client will identify and replace 2-3 negative thinking patterns that mediate feelings of hopelessness and helplessnes to reduce depression as shown by a reduced score for depression on the DSM-5 cross-cutting measure. Interventions: Through groups and individual therapy, pt will be provided with education on cognitive distortions, mistaken beliefs, and identifying and combating negative self-talk. Therapist will help pt explore connection between thoughts, feelings, and actions. Discharge Criteria: Client will be able to identify 2-3 negative thinking patterns and be able to effectively stop, challenge, or cope with those negative thoughts. Client will also reported reduced DSM-5 symptoms for depression. Target Date: 03/09/18 Review Date: 02/25/18 Status: open Objective #2 Stated Objective: Client will learn and utilize 2-3 healthy coping strategies to manage depressive symptoms. Interventions: Therapist will assist client in learning internal coping strategies to manage depressive symptoms, along with helping client identify triggers. Therapist will teach client about the depressive maintenance cycle and help client identify coping skills and enjoyable activities that can help client break out of that cycle. Discharge Criteria: Client will have accomplished this goal when she can report utilizing at least 2 healthy coping skills to manage depression. Target Date: 03/09/18 Review Date: 02/25/18 Status: open
--- NOTE | 2018-01-26 16:15 | BH.NA_ITS ---
Physical Data - Height/Weight Height: 1.7 m Current Medication Compliance - Medication Compliance Do you take your medication as prescribed?: Yes Do you need assistance with taking medication?: No Have you had side effects from medication?: Yes Nutritional History - Appetite Nutritional Instructions:: If client shows signs of a swallowing problem, weight change of 10 pounds or more in the last month, or is on a diabetic diet, the physician will review and request a dietitian consult, as appropriate. All unintentional weight loss will be referred to the physician for decision on need for dietitian consult. Describe your appetite:: Poor Have you noticed a change in your eating habits lately?: Yes - very poor appetite d/t gastroparesis Additional nutritional information:: poorly controlled diabetic, most recent A1c 10.6% - had been getting Glucerna, but insurance is no longer covering Functional Assessment - Sleep Pattern Describe any problems with sleeping: Client describes difficulty staying asleep, averages 6-7 hours/nightly, and takes a 1h nap some days. - Activities Motor Activity:: Functional Sensory/Communication Assess - Hearing Problems Do you have any hearing problems?: Minimal difficulty - Hx of surgery associated w/ Meniere's disease - Communication Problems Do you have difficulty understanding what people are saying?: No Do you have trouble putting your thoughts into words or expressing what you want to say?: No Do people ever have trouble understanding what you say?: No What is your primary language?: [place] Learning Assessment - Learning Barriers Learning Barriers:: Cognitive - some forgetfulness and short-term memory problems, Ready to learn Medical Problems/History - Cardiac Conditions Cardiovascular: Coronary artery disease, Hypertension, Hyperlipidemia - Respiratory Conditions Respiratory: Other (See comments) - ANKITA - noncompliant w/ PAP therapy - Neurological Conditions Neurological: Other (See comments) - early stages of Alzheimer's - Genitourinary Conditions Genitourinary: Kidney failure - CKD3 - Metabolic Conditions Metabolic: Diabetes - type 2, Hypothyroidism - Gastrointestinal Conditions Gastrointestinal: Nausea, Vomiting, Other (See comments) - ulcerative colitis w/ ileostomy - Pain Assessment Do you have acute or chronic pain?: Yes - Female Reproductive Do you think you may be ?: No Number of pregnancies:: 1 Number of children:: 1 Have you reached menopause?: Yes Do you have any history of breast disease?: No - Family History Family History: Family History (Last Reviewed 02/01/18 @ 13:29 by Ema Henderson) Mother CVA (cerebral vascular accident) Diabetes Brother Heart disease Myocardial infarction Pancreatitis Father Cancer Lymphoma Grandmother Myocardial infarction Sister COPD (chronic obstructive pulmonary disease) Surgical History - Surgical History Have you had any surgeries? If so, list type and date:: Yes - see PMH/SHx Substance Abuse - Substance Abuse Please describe substance abuse in the last 30 days:: Former tobacco smoker, 15 pack years. 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 Denies illicit substance use. 6 caffeinated beverages daily. Mental Status Summary - Mental Status Significant Findings/Observations on Appearance and Mood:: A&Ox4, casually dressed, mildly unkempt in appearance. She is cooperative with interview and makes good eye contact. Normal activity with slow gait, assistive use of cane. Speech is clear and of normal rate and volume. Mild depression and anhedonia. Mood congruent affect. Logical associations and normal process. Average knowledge. No symptoms of delusions. Recent onset of auditory and visual hallucinations. Denies SI, but has passive thoughts of . Denies HI. Slightly impaired recent and remote memory. Good attention and concentration. Suicide Assessment - Suicidal Ideation Are you currently or have you been suicidal in the past?: Yes Suicidal Intentional Rating Scale (SIRS): Suicidal thoughts (past) Physician Notification: If Active suicidal thoughts/Will not contract for safety is checked, contact physician and document in the Physician Notification section below. Past Psychiatric History - MH Treatment Hx ECT Therapy Details:: N/A Fall Risk Assessment - Age Age: Less than 60 - Mental Status Mental Status: Willing & able to ask for assistance when needed - Physical Status Physical Status: Limb, dizziness, syncope, neurological - Impairments Impairments: None - Elimination Elimination: Catheter OR ostomy - Gait or Balance Gait or Balance: Walks with assistive device (e.g. cane, walker) - Hx of Falls History of falls in the past 6 months: Has fallen - Medications/Substances Psychotropics:: Antidepressants, Anxiolytics (e.g. benzodiazepines) Medications/substances used within the past 24 hours or ordered to administer: 1-2 of the medications/substances listed above - Total Score Total Points:: 7 Physician Notification - Physician Notification Physician Notified: Naz Melissa Method of Notification: Face to Face Comments: treatment planning discussion RN Summary of Impressions - Impressions Recommendations: Include psychiatric and medical issues, treatment planning recommendations, and discharge planning needs. Impressions: Psychiatric Issues: MDD, medication related hallucinations Impression: Medical Issues: multiple medical issues causing MH symptoms to be exacerbated Impression: General Medical Conditions: see PMH above - Level of Care How do the client's current symptoms and functional deficits support need for this level of care?: Client has been experiencing progressive worsening of her mental health symptoms for several months. She has multiple chronic medical conditions that are contributing to her decompensation. Christelle also reports recent onset of visual and auditory hallucinations that she thinks are associated with new medications started by her neurologist. She has feelings of hopelessness and passive thoughts of . Client also describes a very strained relationship with her son. She has limited support, currently living separately from her girlfriend, who is her main support person. IOP will promote gains and socialization while preventing further decompensation.
--- NOTE | 2018-01-31 09:05 | BH.SGPN.GN ---
Behaviors/Verbalizations/Mental Status: [] Eye contact is good. Motor activity is appropriate. Appearance is neat. Speech is Appropriate. Mood is depressed. Affect is flat. Thoughts are linear and logical. No evidence of psychosis. Reviewed daily check in sheet and no reports of suicidal ideations or intent. Client Response/Progress/Benefit: [] Pt spoke when prompted however was attentive during group discussions. Emotion for today is passive. Shared with the group that she continues to struggle with physical and mental health symptoms. Discussed challenges and stressors related to the holiday and relationship. Talked at length about her declining health and loss of independence have effected her self-esteem, purpose, and motivation to live. Group pointed out that she often minimizes her positives as she stated she did nothing all weekend however knitted 4 hats and scarfs. Limited progress noted per pt report. Benefited from group support, feedback, encouragement. Will continue in IOP to maintain safety, improve quality of life, and prevent further decompensation. Narrative Note: []
--- NOTE | 2018-01-31 10:15 | BH.SGPN.GN ---
Behaviors/Verbalizations/Mental Status: [] Eye contact is good. Motor activity is appropriate. Appearance is casual. Speech is Appropriate. Mood is depressed. Affect is flat. Thoughts are linear and logical. No evidence of psychosis. Client Response/Progress/Benefit: [] Pt was an active participant in group discussion and activity. Participated in group discussion on the role of fear on mental health. Along with peers discussed how failure impacts motivation and mental health. Group identified that failure often leads to thinking such as; I'm not good enough, I've let other down, failure is a reflection of who I am, and feelings of being dumb or inadequate. Further group discussion on how fear of failing can impact behaviors, choices, and mental health. Pt reported that her fear holds her back and that she would benefit from stepping outside of self-limits and believing in herself. Pt benefited by being able to connect group activity with fear of failure by identifying how fear of failing impacts decisions and actions. Will continue in IOP to maintain safety, improve functioning, and prevent decompensation. Narrative Note: []
--- NOTE | 2018-01-31 11:16 | BH.SGPN.GN ---
Behaviors/Verbalizations/Mental Status: [Client alert and oriented, casually and neatly dressed. Eye contact good. Motor activity appropriate. Speech within normal limits providing insight throughout. Affect full, mood euthymic. Thoughts linear, logical, no signs of hallucinations or delusions.] Client Response/Progress/Benefit: [Client actively engaged participant throughout and provided relevant and insightful input to the discussion. Reflected with group on barriers and supports identified in challenge activity during previous session and connected this with fear of failure in dx life. Identified difficulty filtering advice from others. Client willing to complete reflection worksheet aimed at identifying how fear of failure is currently holding her back as well as barriers in overcoming this. Indicated currently fears failing at ?getting myself out of my depression? and reports current barriers include: ?knowing others will expect more from me if I do?, negative responses from others, self-loathing, and lack of resources. Benefitted from working with group to identify strategies for overcoming fear of failure and displaying progress in levels of insight regarding how fear is reinforcing depression as well as ability to distinguish one step she could take to begin overcoming fears. Plans to work on improving use of positive mindset today. Recommended continued tx to encourage use of identified skills and improve sx management. ] Narrative Note: []
--- NOTE | 2018-02-04 10:20 | BH.SGPN.GN ---
Behaviors/Verbalizations/Mental Status: []Pt eye contact good, casually dressed, motor activity appropriate, speech normal rate and tone, mood depressed, congruent affect, thoughts linear and intact, no evidence of delusions or hallucinations. Client Response/Progress/Benefit: []Pt listened attentively to peers and contributed to discussion at times. Pt connected with that quote that you might think you've communicated, but if do not communicate in a clear, specific and direct way then the message can easily be misinterpreted. Pt related to others that non-verbal communication can impact outcome of a conversation because non-verbal communication (tone,eye contact, body language, etc) can also lead to misinterpretations and increased conflict. Pt added her thoughts to discussion about the four different types of communication (passive, passive-aggressive, aggressive, and assertive). Pt able to identify benefits and costs to each type of communication. Pt seemed to benefit from increased awareness of the different types of communication as well as learning about benefits and costs of each style. Narrative Note: []
--- NOTE | 2018-02-04 11:25 | BH.SGPN.GN ---
Behaviors/Verbalizations/Mental Status: []Eye contact is good. Motor activity is appropriate. Appearance is casual. Speech is Appropriate. Mood is depressed. Affect is congruent. Thoughts are linear and logical. No evidence of psychosis. Client Response/Progress/Benefit: []Pt listened attentively to others and contributed to discussion at times. Pt reported she is a passive communicator with one specific person because she gets overwhelmed with the specific person and often puts own needs last. Pt shared with other people she tends to be passive-aggressive. Pt reported she recognizes how her current way of communicating decreases the effectiveness of her message and can result in other negative consequences. Pt verbalized desire to work on being assertive. Pt connected with activity AEB pt connecting importance of needing to be specific and clear in order to help others fully understand what trying to communicate. Pt seemed to benefit from group brainstorm of strategies to improve communication. Pt to continue IOP level of care to decrease depression, improve daily functioning, and prevent decompensation. Narrative Note: []
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
--- NOTE | 2018-02-04 16:07 | BH.MDN ---
Multi-Disciplinary Note - Note 45-min Individual Time Started:: 09:00 Date: 02/04/18 Purpose of session/treatment goals addressed:: The purpose of this session was address client's current symptoms, treatment goals, and psychosocial stressors. Another goal was to provide psychoeducation on maintenance cycles and cognitive distortions. Eye Contact:: Good Motor Activity:: Appropriate Appearance:: Neat Speech:: Appropriate Mood:: Depressed Affect:: Constricted Thoughts:: Linear, Logical Staff Interventions:: Therapist used open-ended questions and active listening to gather information on client's current stressors, psychosocial concerns, and symptoms. Therapist provided psychoeducation on cognitive distortions to help client increase awareness of how her negative thoughts impact emotions and behaviors. Therapist used strengths perspective to empower client by reflecting on times when client demonstrated resilience. Therapist explored client?s treatment goals and supports. Client Response:: Client responded well to session, open to meeting with therapist. Client reported multiple stressors that have been impacting her mental health including relationship tension, chronic health issues, and finances. Client stated her depression and anxiety started becoming worse in 2012 after client had heart surgery. Client endorses a depressed mood, anhedonia, negative thinking, and low energy. Client identified her treatment goals as getting out of this funk. Client acknowledges that she knows healthy coping skills and what's good for me, but she has a difficult time implementing these strategies. Client receptive to discussing cognitive distortions and reported I do that...I turn things negative. Client able to recognize personal strengths, sharing she is resilience and intelligent. Client identified several activities she used to enjoy that she would like to return to doing. Client open to setting small goals to return to activities she once enjoyed and was also open to case management. Risks/Concerns:: Client denies suicidal ideation, plan, and intent as of 02/04/18. Client shared I can't remember the last time I had that. Progress Toward Goals/Plan:: Minimal progress at this time as client has had limited attendance. Client appears to be insightful of her mental health symptoms, barriers, and negative thought patterns. Client shared I know what I have to do, but I don't follow through. Client endorses a depressed mood, low energy, and difficulty concentrating. Client to continue IOP to improve mood stability and increase consistent application of healthy coping skills. Time Stopped:: 09:45
--- NOTE | 2018-02-04 16:23 | BH.COMM ---
Communication Note - Communication with Client Communication Note: due to unforseen circumstances psychiatrist was unable to make it into program to complete psychiatric evaluation today
--- NOTE | 2018-02-09 13:49 | BH.COMM ---
Communication Note - Communication with Client Communication Note: Per client's report, she was unable to attend scheduled individual and group IOP sessions today due to illness. Client scheduled to attend IOP Wednesday02/11/18.
--- NOTE | 2018-02-11 16:10 | BH.DS_ITS ---
Discharge Summary - Demographics Date of Admission:: 01/26/18 Discharge Date: 02/11/18 Presenting Problems at Admission:: Client is a 57-year-old female who was referred to [facility] by her PCP due to worsening depressive symptoms and occasional suicidal thoughts. Client presented with significant medical issues that impact client's quality of life and functioning. Client endorsed erratic sleep, depressed mood, anhedonia, lack of energy, hopelessness, crying spells, and di fficulty concentrating. Client also presented with ruminations and significant worrying. Client reported visual and auditory hallucinations within the last month which client reports belief were caused by medications. Client's mental health and medical symptoms impacted client's overall functioning and well- being. Discharge Diagnoses:: Major Depressive Disorder F33.2 Reason for Discharge:: Client voluntarily discharged from [facility] before completing the program due to ongoing medical conditions impacting her ability to attend [facility]. - Treatment Progress During Treatment & Response: Client appeared to respond well to treatment on days client attended group. Client was an active group member and positively contributed to discussion. Client's attendance, due to medical issues, likely impacted client's limited progress as client only attended group three times in the three weeks she was in [facility]. Due to client's early discharge, therapist and client unable to accomplish treatment goals. Issues Still to be Addressed:: Due to client's early discharge from [facility], client and therapist were unable to make progress on treatment goals. Client was provided with resources for outpatient mental health services and could benefit from ongoing individual counseling to help client manage depressive symptoms. Client reported limited supports, financial stress, and multiple medical conditions which impact client's quality of life and mental health. Client could benefit from case management services and seeking social support. Lastly, client shared she would like to return to activities she once enjoyed such as painting. Discharge Recommendations/Instructions:: Client unable to come in to [facility] to create an aftercare plan, but client was agreeable to this therapist following up with client next week to establish a plan for ongoing services. Client is currently experiencing numerous health issues and was recommended to follow up with her doctors for necessary treatments and testing. Client encouraged to return to [facility] when she feels more medically stable. Discharge Handout: Complete Discharge Handout with client on aftercare options and continuity of care.
--- NOTE | 2018-02-11 16:17 | BH.COMM_ITS ---
Communication Note - Communication with Client Communication Note: Client missed IOP today due to ongoing health issues. Client and therapist discussed discharge from [facility] at this time due to health issues hindering client's ability to attend group. Client was in agreement with discharging and she reported that she would like to return to [facility] when she is feeling better and has more energy. Therapist to follow up with client next week.
== END 2018-02-04 23:59 ==
LOC: BHIOP 09:00
PROVIDERS: Family Provider Internal Medicine; PCP Internal Medicine; Visit Provider Psychiatry & Neurology Psychiatry
DX: F33.2 Major depressive disorder, recurrent severe without psychotic features (principal)
CPT/HCPCS: H0035; H2012; H2020; T1002; 90834

== ENCOUNTER → 2018-02-01 14:31 | Outpatient (CLI) | payer MEDICAID, SELFPAY ==
[2018-01-12 13:19] VITALS: BMI 30.9
[2018-02-01 13:33] VITALS: BMI 30.9
[2018-02-01 15:18] LABS: Absolute Lymphocyte Count 2.35 X10^3/ul (0.83-4.51); Absolute Neutrophil Count 4.3 X10^3/uL (2.0-7.7); Basophil# 0.03 X10^3/uL; Basophil% 0.4 % (0-1); Eosinophil# 0.49 X10^3/uL; Eosinophils% 6.4 % (0-5); Hematocrit 41.8 % (37-47); Hemoglobin 13.2 g/dl (12.0-15.0); Lymphocyte # 2.35 X10^3/ul (4.0); Lymphocyte % 30.7 % (19-41); Mean Corp Hgb Conc 31.6 g/gl (32-36); Mean Corpuscular Hgb 27.3 pg (27.0-32.0); Mean Corpuscular Volume 86.5 fL (81-99); Monocyte# 0.45 X10^3/uL; Monocyte% 5.9 % (0-10); Neutrophil # 4.29 X10^3/uL (2.7-7.7); Neutrophil % 56.1 % (47-70); Platelet Count 194 K/mm3 (150-450); RBC Distribution Width CV 16.3 % (11.6-14.6); RBC Distribution Width SD 51.5 fl (35.1-43.9); Red Blood Count 4.83 M/mm3 (4.2-5.4); White Blood Count 7.7 K/mm3 (4.4-11.0)
[2018-02-01 15:40] LABS: ALB/GLOB Ratio 0.8 RATIO (0.9-2.4); AST(SGOT) 46 U/L (15-37); Alanine Aminotransfer ALT/SGPT 36 U/L (13-56); Albumin, Serum 3.3 g/dL (3.2-5.0); Alkaline Phosphatase 192 U/L (45-117); Amylase 51 U/L (25-115); Anion Gap 11 (5-15); BUN 29 mg/dL (7-18); BUN/Creat Ratio 19.3 RATIO (10-20); Calcium,Total 9.5 mg/dL (8.5-10.1); Chloride 101 mmol/L (98-107); EST Glomerular Filtration Rate 38 mL/min (>60); Est Glom Filt Rate - Afr Amer 46 mL/min (>60); Globulin 4.3 g/dL (2.2-4.2); Glucose 213 mg/dL (74-106); Lipase 171 U/L (73-393); Potassium 4.1 mmol/L (3.5-5.1); Protein, Total 7.6 g/dL (6.4-8.2); Sodium Level 141 mmol/L (136-145)
[2018-02-01 15:42] LABS: POSITIVE COUNT NO; POSITIVE DIFFERENTIAL NO; POSITIVE MORPHOLOGY NO
--- OUTSIDE RECORDS SUMMARY | 2018-03-30 06:15 | XMS RPT_ITS ---
:1960 Author Organization OHIP Support Name Relationship Address Phone D Unavailable Unavailable Unavailable ROBERT, BRANDY Unavailable [address] + [place] [address] D Unavailable Unavailable Unavailable ROBERT, BRANDY Unavailable [address] + [place] [address] D Unavailable Unavailable Unavailable ROBERT, BRANDY Unavailable [address] + [place] [address] D Unavailable Unavailable Unavailable ROBERT, BRANDY Unavailable [address] + [place] [address] D Unavailable Unavailable Unavailable ROBERT, BRANDY Unavailable [address] + [place] [address] D Unavailable Unavailable Unavailable ROBERT, BRANDY Unavailable [address] + [place] [address] D Unavailable Unavailable Unavailable ROBERT, BRANDY Unavailable [address] + [place] [address] D Unavailable Unavailable Unavailable ROBERT, BRANDY Unavailable [address] + [place] [address] D Unavailable Unavailable Unavailable ROBERT, BRANDY Unavailable [address] + [place] [address] D Unavailable Unavailable Unavailable ROBERT, BRANDY Unavailable [address] [facility] + [address] [place] [address] D Unavailable Unavailable Unavailable ROBERT, BRANDY Unavailable [address] + [place] [address] D Unavailable Unavailable Unavailable ROBERT, BRANDY Unavailable [address] + [address] [place] [address] D Unavailable Unavailable Unavailable ROBERT, BRANDY Unavailable [address] [facility] + [address] [place] [address] D Unavailable Unavailable Unavailable ROBERT, BRANDY Unavailable [address] + [address] [place] [address] D Unavailable Unavailable Unavailable ROBERT, BRANDY Unavailable [address] + [address] [place] [address] D Unavailable Unavailable Unavailable ROBERT, BRANDY Unavailable [address] + [address] [place] [address] D Unavailable Unavailable Unavailable ROBERT, BRANDY Unavailable [address] + [place] [address] D Unavailable Unavailable Unavailable ROBERT, BRANDY Unavailable [address] + [address] [place] [address] D Unavailable Unavailable Unavailable ROBERT, BRANDY Unavailable [address] + [address] [place] [address] D Unavailable Unavailable Unavailable ROBERT, BRANDY Unavailable [address] + [address] [place] [address] D Unavailable Unavailable Unavailable ROBERT, BRANDY Unavailable [address] + [address] [place] [address] D Unavailable Unavailable Unavailable ROBERT, BRANDY Unavailable [address] + [address] [place] [address] D Unavailable Unavailable Unavailable ROBERT, BRANDY Unavailable [address] + [address] [place] [address] D Unavailable Unavailable Unavailable ROBERT, BRANDY Unavailable [address] + [address] [place] [address] D Unavailable Unavailable Unavailable ROBERT, BRANDY Unavailable [address] + [address] [place] [address] D Unavailable Unavailable Unavailable ROBERT, BRANDY Unavailable [address] + [address] [place] [address] D Unavailable Unavailable Unavailable ROBERT, BRANDY Unavailable [address] + [address] [place] [address] D Unavailable Unavailable Unavailable ROBERT, BRANDY Unavailable [address] + [address] [place] [address] D Unavailable Unavailable Unavailable ROBERT, BRANDY Unavailable [address] + [address] [place] [address] D Unavailable Unavailable Unavailable ROBERTBRANDY Unavailable [address] + [address] [place] [address] D Unavailable Unavailable Unavailable ROBERT, BRANDY Unavailable [address] + [address] [place] [address] D Unavailable Unavailable Unavailable ROBERT, BRANDY Unavailable [address] + [address] [place] [address] D Unavailable Unavailable Unavailable ROBERT, BRANDY Unavailable [address] + [address] [place] [address] D Unavailable Unavailable Unavailable ROBERT, BRANDY Unavailable [address] + [address] [place] [address] D Unavailable Unavailable Unavailable ROBERT, BRANDY Unavailable [address] + [address] [place] [address] D Unavailable Unavailable Unavailable ROBERT, BRANDY Unavailable [address] + [address] [place] [address] D Unavailable Unavailable Unavailable ROBERT, BRANDY Unavailable [address] + [address] [place] [address] D Unavailable Unavailable Unavailable ROBERT, BRANDY Unavailable [address] + [address] [place] [address] D Unavailable Unavailable Unavailable ROBERT, BRANDY Unavailable [address] + [address] [place] [address] D Unavailable Unavailable Unavailable ROBERT, BRANDY Unavailable [address] + [address] [place] [address] D Unavailable Unavailable Unavailable ROBERT, BRANDY Unavailable [address] + [address] [place] [address] D Unavailable Unavailable Unavailable ROBERT, BRANDY Unavailable [address] + [address] [place] [address] D Unavailable Unavailable Unavailable ROBERT, BRANDY Unavailable [address] + [address] [place] [address] D Unavailable Unavailable Unavailable ROBERT, BRANDY Unavailable [address] + [address] [place] [address] D Unavailable Unavailable Unavailable ROBERTBRANDY Unavailable [address] + [address] [place] [address] D Unavailable Unavailable Unavailable ROBERT, BRANDY Unavailable [address] + [address] [place] [address] D Unavailable Unavailable Unavailable ROBERTBRANDY Unavailable [address] + [address] [place] [address] D Unavailable Unavailable Unavailable ROBERT, BRANDY Unavailable [address] + [address] [place] [address] D Unavailable Unavailable Unavailable ROBERTBRANDY Unavailable [address] + [address] [place] [address] D Unavailable Unavailable Unavailable ROBERTBRANDY Unavailable [address] + [address] [place] [address] D Unavailable Unavailable Unavailable ROBERTBRANDY Unavailable [address] + [address] [place] [address] D Unavailable Unavailable Unavailable ROBERT, BRANDY Unavailable [address] + [address] [place] [address] D Unavailable Unavailable Unavailable ROBERTBRANDY Unavailable [address] + [address] [place] [address] D Unavailable Unavailable Unavailable ROBERTBRANDY Unavailable [address] + [address] [place] [address] D Unavailable Unavailable Unavailable ROBERTBRANDY Unavailable [address] + [address] [place] [address] D Unavailable Unavailable Unavailable ROBERT, BRANDY Unavailable [address] + [address] [place] [address] D Unavailable Unavailable Unavailable ROBERT, BRANDY Unavailable [address] + [address] [place] [address] D Unavailable Unavailable Unavailable ROBERTANNAAN Unavailable [address] + [address] [place] [address] D Unavailable Unavailable Unavailable ROBERT, BRANDY Unavailable [address] + [address] [place] [address] D Unavailable Unavailable Unavailable ROBERT, BRANDY Unavailable [address] + [address] [place] [address] D Unavailable Unavailable Unavailable ROBERT, BRANDY Unavailable [address] + [address] [place] [address] D Unavailable Unavailable Unavailable ROBERT, BRANDY Unavailable [address] + [address] [place] [address] D Unavailable Unavailable Unavailable ROBERT, BRANDY Unavailable [address] + [address] [place] [address] D Unavailable Unavailable Unavailable ROBERT, BRANDY Unavailable [address] + [address] [place] [address] D Unavailable Unavailable Unavailable ROBERT, BRANDY Unavailable [address] + [address] [place] [address] D Unavailable Unavailable Unavailable ROBERT, BRANDY Unavailable [address] + [address] [place] [address] D Unavailable Unavailable Unavailable ROBERT, BRANDY Unavailable [address] + [address] [place] [address] D Unavailable Unavailable Unavailable ROBERT, BRANDY Unavailable [address] + [address] [place] [address] D Unavailable Unavailable Unavailable ROBERT, BRANDY Unavailable [address] + [address] [place] [address] D Unavailable Unavailable Unavailable ROBERT, BRANDY Unavailable [address] + [address] [place] [address] D Unavailable Unavailable Unavailable ROBERT, BRANDY Unavailable [address] + [address] [place] [address] D Unavailable Unavailable Unavailable ROBERT, BRANDY Unavailable [address] + [address] [place] [address] D Unavailable Unavailable Unavailable ROBERT, BRANDY Unavailable [address] + [address] [place] [address] D Unavailable Unavailable Unavailable ROBERT, BRANDY Unavailable [address] + [address] [place] [address] D Unavailable Unavailable Unavailable ROBERTBRANDY Unavailable [address] + [address] [place] [address] D Unavailable Unavailable Unavailable ROBERTBRANDY Unavailable [address] + [address] [place] [address] D Unavailable Unavailable Unavailable ROBERTBRANDY Unavailable [address] + [address] [place] [address] D Unavailable Unavailable Unavailable ROBERTBRANDY Unavailable [address] + [address] [place] [address] D Unavailable Unavailable Unavailable ROBERT, BRANDY Unavailable [address] + [address] [place] [address] D Unavailable Unavailable Unavailable ROBERT, BRANDY Unavailable [address] + [address] [place] [address] D Unavailable Unavailable Unavailable ROBERTBRANDY Unavailable Unavailable + [place] [address] D Unavailable Unavailable Unavailable ROBERT, BRANDY Unavailable [address] + [address] [place] [address] D Unavailable Unavailable Unavailable ROBERTBRANDY Unavailable Unavailable + [place] [address] D Unavailable Unavailable Unavailable ROBERTBRANDY Unavailable [address] + [address] [place] [address] D Unavailable Unavailable Unavailable ROBERTBRANDY Unavailable [address] + [address] [place] [address] D Unavailable Unavailable Unavailable ROBERTBRANDY Unavailable Unavailable + [place] [address] D Unavailable Unavailable Unavailable ROBERTBRANDY Unavailable NA + [place], [place] D Unavailable Unavailable Unavailable ROBERTBRANDY Unavailable NA + [place], [place] D Unavailable Unavailable Unavailable ROBERT, BRANDY Unavailable [address] + [address] [place] [address] D Unavailable Unavailable Unavailable ROBERTBRANDY Unavailable NA + [place], [place] D Unavailable Unavailable Unavailable ROBERT, BRANDY Unavailable Unavailable + [place] [address] D Unavailable Unavailable Unavailable ROBERT, BRANDY Unavailable NA + [place], [place] D Unavailable Unavailable Unavailable ROBERT, BRANDY Unavailable NA + [place], [place] D Unavailable Unavailable Unavailable ROBERT, BRANDY Unavailable Unavailable + [place] [address] D Unavailable Unavailable Unavailable ROBERT, BRANDY Unavailable Unavailable + [place] [address] D Unavailable Unavailable Unavailable ROBERT, BRANDY Unavailable NA + [place], [place] D Unavailable Unavailable Unavailable ROBERT, BRANDY Unavailable NA + [place], [place] D Unavailable Unavailable Unavailable ROBERT, BRANDY Unavailable Unavailable + [place] [address] D Unavailable Unavailable Unavailable ROBERT, BRANDY Unavailable NA + [place], [place] D Unavailable Unavailable Unavailable ROBERT, BRANDY Unavailable NA + [place], [place] D Unavailable Unavailable Unavailable ROBERT, BRANDY Unavailable [address] + [address] [place] [address] D Unavailable Unavailable Unavailable ROBERT, BRANDY Unavailable NA + [place], [place] D Unavailable Unavailable Unavailable ROBERT, BRANDY Unavailable NA + [place], [place] D Unavailable Unavailable Unavailable ROBERT, BRANDY Unavailable [address] + [place] [address] D Unavailable Unavailable Unavailable ROBERT, BRANDY Unavailable [address] + [place] [address] D Unavailable Unavailable Unavailable ROBERT, BRANDY Unavailable [address] + [place] [address] Care Team Providers Name Role Phone DEAN ROSE Admitting Unavailable DEAN ROSE Attending Unavailable WILLIAN VAZ Attending Unavailable DEAN ROSE Attending Unavailable THAI DENISE Referring Unavailable DEAN ROSE Referring Unavailable DEAN ROSE Referring Unavailable DEAN ROSE Attending Unavailable DEAN ROSE Referring Unavailable MARGARITA GARCIA Referring Unavailable TULE RIVERNJ Attending Unavailable MILTON, DEAN C Referring Unavailable MILTON, DEAN C Referring Unavailable MILTON, DEAN C Referring Unavailable MILTON, DEAN C Referring Unavailable MILTON, DEAN C Attending Unavailable MILTON, DEAN C Referring Unavailable MILTON, DEAN C Referring Unavailable MILTON, DEAN C Referring Unavailable MILTON, DEAN C Referring Unavailable NUÑEZ, SHERINE Tinajero Referring Unavailable NUÑEZ, SHERINE Tinajero Attending Unavailable MILTON, DEAN May Referring Unavailable TESTRAKEWILLIAN Attending Unavailable TESTRAKE, WILLIAN Referring Unavailable MILTON, DEAN C Admitting Unavailable MILTON, DEAN C Attending Unavailable MILTON, DEAN C Attending Unavailable OLEGHE, EFEWONGBE B Referring Unavailable OLEGHE, EFEWONGBE B Referring Unavailable TESTRAKE, WILLIAN Attending Unavailable TESTRAKE, WILLIAN Referring Unavailable TESTRAKE, WILLIAN Referring Unavailable LynseyFish Attending Unavailable Oleghe, Efewongbe Referring Unavailable Oleghe, Efewongbe Attending Unavailable Oleghe, Efewongbe Referring Unavailable Radha Cline Attending Unavailable Oleghe, Efewongbe Primary Care Unavailable Kerline Villareal [employer]MENT [employer] SUPERVISOR-C Attending Unavailable Naima Strange HEAVY EQUIPMENT PLUMBING SUPERVISOR-C Referring Unavailable Oleghe, Efewongbe Primary Care Unavailable Jane Saez [employer]AVY EQUIPMENT PLUMBING SUPERVISOR-C Consulting Unavailable Thai Denise Attending Unavailable Oleghe, Efewongbe Referring Unavailable Oleghe, Efewongbe Primary Care Unavailable Oleghe, Efewongbe Attending Unavailable Oleghe, Efewongbe Primary Care Unavailable Oleghe, Efewongbe Attending Unavailable Oleghe, Efewongbe Primary Care Unavailable Naima Strange HEAVY EQUIPMENT PLUMBING SUPERVISOR-C Attending Unavailable Oleghe, Efewongbe Referring Unavailable StrangeNaima HEAVY EQUIPMENT PLUMBING SUPERVISOR-C Attending Unavailable Oleghe, Efewongbe Primary Care Unavailable Naima Strange HEAVY EQUIPMENT PLUMBING SUPERVISOR-C Attending Unavailable Naima Strange HEAVY EQUIPMENT PLUMBING SUPERVISOR-C Referring Unavailable Oleghe, Efewongbe Primary Care Unavailable Kerline Villarela HEAVY EQUIPMENT PLUMBING SUPERVISOR-C Attending Unavailable Kerline Villareal HEAVY EQUIPMENT PLUMBING SUPERVISOR-C Referring Unavailable Oleghe, Efewongbe Primary Care Unavailable Ema Henderson Attending Unavailable Jane Saez HEAVY EQUIPMENT PLUMBING SUPERVISOR-C Attending Unavailable Oleghe, Efewongbe Referring Unavailable Oleghe, Efewongbe Primary Care Unavailable Naima Strange HEAVY EQUIPMENT PLUMBING SUPERVISOR-C Attending Unavailable Naima Strange HEAVY EQUIPMENT PLUMBING SUPERVISOR-C Referring Unavailable Oleghe, Efewongbe Primary Care Unavailable Oleghe, Efewongbe Attending Unavailable Oleghe, Efewongbe Primary Care Unavailable Aide, Thai Attending Unavailable Oleghe, Efewongbe Referring Unavailable Aide, Thai Attending Unavailable Oleghe, Efewongbe Referring Unavailable Oleghe, Efewongbe Primary Care Unavailable Oleghe, Efewongbe Attending Unavailable Oleghe, Efewongbe Referring Unavailable Oleghe, Efewongbe Primary Care Unavailable Verplanck, Thai Attending Unavailable Verplanck, Thai Referring Unavailable Oleghe, Efewongbe Primary Care Unavailable Oleghe, Efewongbe Attending Unavailable Oleghe, Efewongbe Referring Unavailable Oleghe, Efewongbe Attending Unavailable Oleghe, Efewongbe Referring Unavailable Oleghe, Efewongbe Attending Unavailable Oleghe, Efewongbe Referring Unavailable Oleghe, Efewongbe Attending Unavailable Oleghe, Efewongbe Referring Unavailable SHAUNA SABILLON Attending Unavailable SHAUNA SABILLON Referring Unavailable Oleghe, Efewongbe Primary Care Unavailable Oleghe, Efewongbe Attending Unavailable Oleghe, Efewongbe Referring Unavailable Oleghe, Efewongbe Primary Care Unavailable Naima Strange HEAVY EQUIPMENT PLUMBING SUPERVISOR-C Attending Unavailable Naima Strange HEAVY EQUIPMENT PLUMBING SUPERVISOR-C Referring Unavailable Oleghe, Efewongbe Primary Care Unavailable Oleghe, Efewongbe Attending Unavailable Oleghe, Efewongbe Primary Care Unavailable Oleghe, Efewongbe Attending Unavailable Oleghe, Efewongbe Attending Unavailable Oleghe, Efewongbe Referring Unavailable Oleghe, Efewongbe Attending Unavailable Oleghe, Efewongbe Referring Unavailable Oleghe, Efewongbe Attending Unavailable Oleghe, Efewongbe Referring Unavailable Oleghe, Efewongbe Attending Unavailable Oleghe, Efewongbe Referring Unavailable Oleghe, Efewongbe Attending Unavailable Oleghe, Efewongbe Referring Unavailable Oleghe, Efewongbe Attending Unavailable Oleghe, Efewongbe Referring Unavailable Oleghe, Efewongbe Primary Care Unavailable Oleghe, Efewongbe Primary Care Unavailable Shmuel Bañuelos Attending Unavailable Jane Saez HEAVY EQUIPMENT PLUMBING SUPERVISOR-C Attending Unavailable Oleghe, Efewongbe Referring Unavailable Oleghe, Efewongbe Primary Care Unavailable Oleghe, Efewongbe Primary Care Unavailable Duke, En Attending Unavailable Oleghe, Efewongbe Attending Unavailable Oleghe, Efewongbe Referring Unavailable Oleghe, Efewongbe Attending Unavailable Oleghe, Efewongbe Referring Unavailable Oleghe, Efewongbe Attending Unavailable Oleghe, Efewongbe Primary Care Unavailable Fish Stone Attending Unavailable Oleghe, Efewongbe Referring Unavailable Oleghe, Efewongbe Primary Care Unavailable Oleghe, Efewongbe Attending Unavailable Oleghe, Efewongbe Referring Unavailable Oleghe, Efewongbe Primary Care Unavailable Last Decker D.O. Attending Unavailable Oleghe, Efewongbe Referring Unavailable Jane Saez HEAVY EQUIPMENT PLUMBING SUPERVISOR-C Attending Unavailable Oleghe, Efewongbe Referring Unavailable Oleghe, Efewongbe Primary Care Unavailable Duke En Attending Unavailable Davide Baca Attending Unavailable Oleghe, Efewongbe Referring Unavailable Oleghe, Efewongbe Primary Care Unavailable Oleghe, Efewongbe Attending Unavailable Oleghe, Efewongbe Referring Unavailable Oleghe, Efewongbe Primary Care Unavailable Oleghe, Efewongbe Attending Unavailable Oleghe, Efewongbe Primary Care Unavailable Oleghe, Efewongbe Primary Care Unavailable [facility], Castillo Admitting Unavailable aruk, Kombian Attending Unavailable [facility], Castillo Admitting Unavailable [facility], Castillo Attending Unavailable Oleghe, Efewongbe Primary Care Unavailable [facility], Castillo Consulting Unavailable Oleghe, Efewongbe Attending Unavailable Oleghe, Efewongbe Referring Unavailable Oleghe, Efewongbe Attending Unavailable Oleghe, Efewongbe Referring Unavailable [facility], Castillo Admitting Unavailable Oleghe, Efewongbe Primary Care Unavailable [place], Kombian Consulting Unavailable Azalea Whittington Attending Unavailable Oleghe, Efewongbe Attending Unavailable Oleghe, Efewongbe Referring Unavailable Oleghe, Efewongbe Primary Care Unavailable Davide Baca Attending Unavailable Davide Baca Referring Unavailable Oleghe, Efewongbe Primary Care Unavailable Jane Saez HEAVY EQUIPMENT PLUMBING SUPERVISOR-C Attending Unavailable Oleghe, Efewongbe Referring Unavailable Oleghe, Efewongbe Primary Care Unavailable Davide Baca Attending Unavailable Davide Baca Referring Unavailable Oleghe, Efewongbe Primary Care Unavailable Davide Baca Attending Unavailable Davide Baca Referring Unavailable Alireza Smith Attending Unavailable Oleghe, Efewongbe Attending Unavailable Oleghe, Efewongbe Referring Unavailable Oleghe, Efewongbe Attending Unavailable Oleghe, Efewongbe Referring Unavailable Oleghe, Efewongbe Attending Unavailable Oleghe, Efewongbe Referring Unavailable Oleghe, Efewongbe Attending Unavailable Oleghe, Efewongbe Primary Care Unavailable Fish Stone Attending Unavailable Castillo Ferris Referring Unavailable Naima Strange HEAVY EQUIPMENT PLUMBING SUPERVISOR-C Attending Unavailable Oleghe, Efewongbe Referring Unavailable Oleghe, Efewongbe Primary Care Unavailable Thai Wolf Attending Unavailable Davide Baca Referring Unavailable Oleghe, Efewongbe Primary Care Unavailable Koram, Audrey Rosie Admitting Unavailable Koram, Audrey Rosie Attending Unavailable Fairchild, Nuha Consulting Unavailable Koram, Audrey Rosie Admitting Unavailable Koram, Audrey Rosie Attending Unavailable Oleghe, Efewongbe Primary Care Unavailable Koram, Audrey Rosie Consulting Unavailable Koram, Audrey Rosie Admitting Unavailable Koram, Audrey Rosie Attending Unavailable Oleghe, Efewongbe Primary Care Unavailable Fairchild, Nuha Consulting Unavailable Koram, Audrey Rosie Consulting Unavailable Koram, Audrey Rosie Admitting Unavailable Koram, Audrey Rosie Attending Unavailable Oleghe, Efewongbe Primary Care Unavailable Fairchild, Nuha Consulting Unavailable Koram, Audrey Rosie Consulting Unavailable Oleghe, Efewongbe Attending Unavailable Oleghe, Efewongbe Referring Unavailable Oleghe, Efewongbe Attending Unavailable Oleghe, Efewongbe Referring Unavailable Oleghe, Efewongbe Primary Care Unavailable Tiffany Alexandre Attending Unavailable Oleghe, Efewongbe Attending Unavailable Oleghe, Efewongbe Referring Unavailable Oleghe, Efewongbe Primary Care Unavailable Oleghe, Efewongbe Attending Unavailable Oleghe, Efewongbe Referring Unavailable Davide Baca Attending Unavailable Oleghe, Efewongbe Referring Unavailable Oleghe, Efewongbe Attending Unavailable Oleghe, Efewongbe Referring Unavailable Oleghe, Efewongbe Primary Care Unavailable Oleghe, Efewongbe Attending Unavailable Oleghe, Efewongbe Referring Unavailable Oleghe, Efewongbe Primary Care Unavailable Naima Strange HEAVY EQUIPMENT PLUMBING SUPERVISOR-C Attending Unavailable Oleghe, Efewongbe Primary Care Unavailable Oleghe, Efewongbe Attending Unavailable Oleghe, Efewongbe Primary Care Unavailable Thai Denise Attending Unavailable Oleghe, Efewongbe Referring Unavailable Oleghe, Efewongbe Primary Care Unavailable Thai Denise Attending Unavailable Oleghe, Efewongbe Referring Unavailable Oleghe, Efewongbe Primary Care Unavailable Thai Denise Attending Unavailable Thai Denise Attending Unavailable Oleghe, Efewongbe Referring Unavailable Oleghe, Efewongbe Primary Care Unavailable Jane Saez HEAVY EQUIPMENT PLUMBING SUPERVISOR-C Attending Unavailable Oleghe, Efewongbe Referring Unavailable Oleghe, Efewongbe Attending Unavailable Oleghe, Efewongbe Referring Unavailable Naima Strange HEAVY EQUIPMENT PLUMBING SUPERVISOR-C Attending Unavailable Naima Strange HEAVY EQUIPMENT PLUMBING SUPERVISOR-C Referring Unavailable Oleghe, Efewongbe Primary Care Unavailable Oleghe, Efewongbe Attending Unavailable Oleghe, Efewongbe Referring Unavailable Hollie Fulton Attending Unavailable Oleghe, Efewongbe Referring Unavailable Oleghe, Efewongbe Attending Unavailable Oleghe, Efewongbe Referring Unavailable Oleghe, Efewongbe Primary Care Unavailable Oleghe, Efewongbe Attending Unavailable Oleghe, Efewongbe Referring Unavailable Oleghe, Efewongbe Primary Care Unavailable Oleghe, Efewongbe Primary Care Unavailable White, Valentine Admitting Unavailable Thai Wolf Consulting Unavailable Shiva Chandler Attending Unavailable White, Valentine Admitting Unavailable Oleghe, Efewongbe Primary Care Unavailable White, Valentine Consulting Unavailable White, Valentine Attending Unavailable White, Valentine Admitting Unavailable Oleghe, Efewongbe Primary Care Unavailable Thai Wolf Consulting Unavailable Naima Brewster Attending Unavailable Naima Brewster Consulting Unavailable White, Valentine Admitting Unavailable Fish Stone Attending Unavailable Oleghe, Efewongbe Primary Care Unavailable Thai Wolf Consulting Unavailable Geraldine Shiva Consulting Unavailable White, Valentine Admitting Unavailable Shiva Chandler Attending Unavailable Oleghe, Efewongbe Primary Care Unavailable Thai Wolf Consulting Unavailable Shiva Chandler Consulting Unavailable LUZ OLIVA Attending Unavailable Oleghe, Efewongbe Primary Care Unavailable Hollie Fulton Attending Unavailable Oleghe, Efewongbe Primary Care Unavailable Oleghe, Efewongbe Attending Unavailable Oleghe, Efewongbe Referring Unavailable Jane Saez HEAVY EQUIPMENT PLUMBING SUPERVISOR-C Attending Unavailable Oleghe, Efewongbe Referring Unavailable ShoJane vázquez HEAVY EQUIPMENT PLUMBING SUPERVISOR-C Attending Unavailable ShookJane [employer]AVY EQUIPMENT PLUMBING SUPERVISOR-C Referring Unavailable Oleghe, Efewongbe Primary Care Unavailable Thai Wolf Attending Unavailable White, Valentine Referring Unavailable Fish Stone Attending Unavailable White, Referring Unavailable CIANCONELUZ Attending Unavailable Oleghe, Efewongbe Primary Care Unavailable Naima Strange HEAVY EQUIPMENT PLUMBING SUPERVISOR-C Attending Unavailable Oleghe, Efewongbe Referring Unavailable Radha Cline Attending Unavailable Oleghe, Efewongbe Referring Unavailable Oleghe, Efewongbe Primary Care Unavailable PROBLEMS PROBLEMS DATE TYPE CONDITION / CODE ATTENDING STATUS SOURCE 02/22/2018 Unknown I10 - Essential Oleghe, Active [facility] (primary) hypertension [facility] / I10(ICD-10) Hospital Repository 02/22/2018 Unknown E11.9 - Type 2 Oleghe, Active [facility] diabetes mellitus [facility] without complications Hospital / E11.9(ICD-10) Repository 02/18/2018 Unknown Z95.1 - Presence of Lynsey, Fish Active [facility] aortocoronary bypass Community graft / Z95.1(ICD-10) Hospital Repository 02/18/2018 Unknown I25.810 - Lynsey, [place] Active [facility] Atherosclerosis of Community coronary artery bypass Hospital graft(s) without Repository angina pectoris / I25.810(ICD-10) 02/18/2018 Unknown E78.5 - Lynsey, Fish Active [facility] Hyperlipidemia, Community unspecified / Hospital E78.5(ICD-10) Repository 02/15/2018 Unknown M54.5 - Low back pain Naima Strange Active [facility] / M54.5(ICD-10) [employer]MENT [employer]UMBING SUPERVISOR-C [facility] Hospital Repository 02/01/2018 Unknown K51.90 - Ulcerative Shook, Jane Active [facility] colitis, unspecified, J [employer]AV[employer] EQUIPMENT PLUMBING SUPERVISOR-C Community without complications Hospital / K51.90(ICD-10) Repository 01/26/2018 Unknown G47.33 - Obstructive [place], Active [facility] sleep apnea (adult) [facility] (pediatric) / Hospital G47.33(ICD-10) Repository 02/02/2018 Unknown R07.9 - Chest pain, LynseyFish courtney Active [facility] unspecified / Community R07.9(ICD-10) Hospital Repository 02/02/2018 Unknown R94.31 - Abnormal Lynsey, Fish Active [facility] electrocardiogram Community [ECG] [EKG] / Hospital R94.31(ICD-10) Repository 02/02/2018 Unknown I25.110 - Lynsey, [place] Active [facility] Atherosclerotic heart Community disease of [facility] coronary artery with Repository unstable angina pectoris / I25.110(ICD-10) 01/04/2018 Unknown R06.02 - Shortness of [place], Active [facility] breath / [facility] R06.02(ICD-10) Hospital Repository 01/04/2018 Unknown R44.3 - Oleghe, Active [facility] Hallucinations, [facility] unspecified / Hospital R44.3(ICD-10) Repository 01/04/2018 Unknown R10.9 - Unspecified Oleghe, Active [facility] abdominal pain / [facility] R10.9(ICD-10) Hospital Repository 12/20/2017 Unknown F32.9 - Major Oleghe, Active [facility] depressive disorder, [facility] single episode, Hospital unspecified / Repository F32.9(ICD-10) 11/26/2017 Unknown E04.2 - Nontoxic [place], Active [facility] multinodular goiter / [facility] E04.2(ICD-10) Hospital Repository 11/25/2017 Active Type 2 diabetes NA Active [place] mellitus with diabetic Clinic Main polyneuropathy / [place] E11.42(ICD-10) Repository 11/25/2017 Active Pain in left toe(s) / NA Active [place] M79.675(ICD-10) Clinic Main [place] Repository 11/25/2017 Active Pain in right toe(s) / NA Active [place] M79.674(ICD-10) Clinic Main [place] Repository 10/18/2017 Unknown E07.9 - Disorder of Oleghe, Active [facility] thyroid, unspecified / [place] Community E07.9(ICD-10) Hospital Repository 08/21/2017 Active Fistula of intestine / DEAN ROSE Active [place] K63.2(ICD-10) Clinic Main [place] Repository 08/19/2017 Active Other acute MILTONK[place]N C Active [facility] postprocedural pain / Clinic Main G89.18(ICD-10) [place] Repository 08/11/2017 Active Chronic obstructive NA Active [facility] pulmonary disease, [facility] Main unspecified / [place] J44.9(ICD-10) Repository 08/11/2017 Active Shortness of breath / NA Active [place] R06.02(ICD-10) Clinic Main [place] Repository 08/09/2017 Active Acute pancreatitis NA Active [facility] without necrosis or Clinic Main infection, unspecified [place] / K85.90(ICD-10) Repository 09/09/2017 Unknown T81.31XA - Disruption Oleghe, Active [facility] of external operation [facility] (surgical) wound, not Hospital elsewhere classified, Repository initial encounter / T81.31XA(ICD-10) 09/09/2017 Unknown E11.8 - Type 2 Oleghe, Active [facility] diabetes mellitus with [place] Community unspecified Hospital complications / Repository E11.8(ICD-10) 07/30/2017 Unknown J44.9 - Chronic Keven, Davide Active [facility] obstructive pulmonary Community disease, unspecified / Hospital J44.9(ICD-10) Repository 08/21/2017 Unknown I25.10 - Lynsey, [place] Active [facility] Atherosclerotic heart Community disease of [facility] coronary artery Repository without angina pectoris / I25.10(ICD-10) 08/21/2017 Unknown R07.89 - Other chest Lynsey, [place] Active [facility] pain / R07.89(ICD-10) Community Hospital Repository 07/06/2017 Active Unknown / UNK(Unknown) DEAN ROSE Active [facility] Other [place] Repository 07/02/2017 Unknown L40.9 - Psoriasis, Oleghe, Active [facility] unspecified / [place] Community L40.9(ICD-10) Hospital Repository 06/30/2017 Unknown I27.20 - Pulmonary Keven, Davide Active [facility] hypertension, Community unspecified / Hospital I27.20(ICD-10) Repository 06/08/2017 Unknown R60.0 - Localized LynseyFish courtney Active [facility] edema / R60.0(ICD-10) [facility] Hospital Repository 07/01/2017 Unknown E11.22 - Type 2 Strange, Naima Active [facility] diabetes mellitus with HEAVY EQUIPMENT PLUMBING SUPERVISOR-C [facility] diabetic chronic Hospital kidney disease / Repository E11.22(ICD-10) 04/23/2017 Unknown K31.84 - Gastroparesis Oleghe, Active [facility] / K31.84(ICD-10) [facility] Hospital Repository 03/17/2017 Unknown R41.3 - Other amnesia Kerline Villareal Active [facility] / R41.3(ICD-10) [facility] Repository 03/17/2017 Unknown R29.6 - Repeated falls Kerline Villareal Active [facility] / R29.6(ICD-10) [facility] Repository 03/10/2017 Unknown R68.89 - Other general Strange, Naima Active [facility] symptoms and signs / HE[employer]IPMENT PLUMBING SUPERVISOR-C Community R68.89(ICD-10) Hospital Repository 03/10/2017 Unknown R06.00 - Dyspnea, Strange, Naima Active [facility] unspecified / HE[employer] EQUIPMENT PLUMBING SUPERVISOR-C Community R06.00(ICD-10) Hospital Repository 03/10/2017 Unknown R07.1 - Chest pain on Strange, Naima Active [facility] breathing / HE[employer] EQUIPMENT PLUMBING SUPERVISOR-C Community R07.1(ICD-10) Hospital Repository 03/10/2017 Unknown J06.9 - Acute upper Strange, Naima Active [facility] respiratory infection, HE[employer] E[employer]IPMENT PLUMBING SUPERVISOR-C Community unspecified / Hospital J06.9(ICD-10) Repository 03/10/2017 Unknown R06.2 - Wheezing / Strange, Naima Active [facility] R06.2(ICD-10) HEAV[employer] EQUIPMENT PLUMBING SUPERVISOR-C [facility] Hospital Repository 05/06/2017 Unknown T81.30XA - Disruption Oleghe, Active [facility] of wound, unspecified, [facility] initial encounter / Hospital T81.30XA(ICD-10) Repository 05/06/2017 Unknown E11.65 - Type 2 Oleghe, Active [facility] diabetes mellitus with [facility] hyperglycemia / Hospital E11.65(ICD-10) Repository 02/23/2017 Unknown T14.8XXA - Other [place], Active [facility] injury of unspecified [facility] body region, initial Hospital encounter / Repository T14.8XXA(ICD-10) PROCEDURES PROCEDURES No Procedure Records FoundRESULTS RESULTS CARDIOLOGY VISIT Observed: 02/18/2018 Status: F Source: [place] REPORT 2:51 PM [facility] [place] [facility] [address] [place] [address] OFFICE VISIT Date of Service: 02/18/18 MR#: [id number] Acct: [id number] Name: AILYN MÉNDEZ Rep #: [id number] : 1960 Provider: Fish Stone MD Age/Sex: 57/F Location: [facility] Status: Signed HPI HPI Chief Complaint: Post hospitalisation visit Details: AILYN MÉNDEZ, is a 57 F who presents to the office today for a follow-up visit. She had been in the ER recently with chest discomfort but had complained of mild midsternal chest discomfort as well an EKG was done it was thought that it was different from before and cardiology was called for evaluation. As remember history is a lady with a history of coronary artery disease status post cardiac artery bypass surgery remotely and multiple cardiac catheterizations. Her last catheterization in 2015 demonstrated normal left main coronary artery left anterior descending artery which was totally occluded first diagonal vessel with mild to moderate diffuse disease circumflex artery which was large dominant with mild disease third obtuse marginal branch with moderately severe disease and saphenous vein grafts which were occluded. The right coronary artery was nondominant with mild disease in the left internal mammary artery was patent to the left anterior descending artery. Medical therapy was recommended after that but then she presented again to the hospital in January 2018 was seen by my colleague Dr. Wolf and during her most recent visit she underwent a cardiac catheterization which demonstrated normal left ventricular systolic function, widely patent stents to the left anterior descending artery, diagonal vessel and nonobstructive in-stent stenosis of the mid obtuse marginal vessel, occluded saphenous vein graft to the diagonal vessel, obtuse marginal branch and left posterior descending artery, diffuse disease noted after the touchdown site of the JONES to the LAD. She underwent successful drug-eluting stent to the mid first diagonal branch with a 2.25 Promus Synergy drug-eluting stent. She says that she has continued to have some of the discomfort since going home. She has had no dizziness or diaphoresis no near syncope or syncope. Her physical exam today demonstrates clear lung corral regular rate and rhythm and mild pedal edema. Intake Vital Signs02/18/18 Height 5 ft 8 in Intake Visit Reasons: DC ICU 11-8 Allergies cinnamon [Cinnamon] Allergy (Verified 02/18/18 14:13) Anaphylaxis Influenza Virus Vaccines Allergy (Verified 02/18/18 14:13) Shortness of breath liraglutide [From Victoza] Allergy (Verified 02/18/18 14:13) Anaphylaxis metronidazole [From Flagyl] Allergy (Verified 02/18/18 14:13) Hives Metronidazole HCl [From Flagyl] Allergy (Verified 02/18/18 14:13) Hives Penicillins Allergy (Verified 02/18/18 14:13) Hives Sulfa (Sulfonamide Antibiotics) Allergy (Verified 02/18/18 14:13) Hives ciprofloxacin [From Cipro] Adverse Reaction (Verified 02/18/18 14:13) Nausea codeine Adverse Reaction (Verified 02/18/18 14:13) Stops Ileostomy dicyclomine HCl [From Bentyl] Adverse Reaction (Verified 02/18/18 14:13) Nausea metformin HCl [From Glucophage] Adverse Reaction (Verified 02/18/18 14:13) Nausea Eflgqtd-Sif-Iaa Reductase Inhibitor Adverse Reaction (Verified 02/18/18 14:13) Nausea/joints ache Medications Baclofen 10 mg PO QHS 11/24/16 [History Confirmed 02/01/18] tramadol 50 mg tablet 50 mg PO BID PRN PRN tab 05/05/17 [History Confirmed 02/01/18] Hydrocortisone 1 applic TOPICAL BID 06/02/17 [History Confirmed 02/01/18] Furosemide [Lasix] 40 mg PO DAILY 07/07/17 [History Confirmed 02/01/18] insulin glargine (U-100) 100 unit/mL (3 mL) subcutaneous pen 80 units SC BID ml 09/02/17 [History Confirmed 02/01/18] isosorbide dinitrate 30 mg tablet 30 mg PO TID #90 tab 09/21/17 [Rx Confirmed 02/01/18] magnesium oxide 400 mg (241.3 mg magnesium) tablet 400 mg PO BID #60 tab 09/21/17 [Rx Confirmed 02/01/18] metoprolol tartrate 50 mg tablet 75 mg PO BID #90 tab 09/21/17 [Rx Confirmed 02/01/18] buprenorphine 7.5 mcg/hour weekly transdermal patch 1 patch TRANSDERMAL QWEEK 10/18/17 [History Confirmed 02/01/18] omeprazole 20 mg capsule,delayed release 20 mg PO DAILY #90 cap 10/19/17 [Rx Confirmed 02/01/18] calcium carbonate 600 mg calcium (1,500 mg) tablet 600 mg PO BID #60 tab 11/30/17 [Rx Confirmed 02/01/18] cholecalciferol (vitamin D3) 2,000 unit capsule 2,000 unit PO DAILY #90 cap 11/30/17 [Rx Confirmed 02/01/18] Aspirin E.C. [Ecotrin] 81 mg PO DAILY 01/11/18 [History Confirmed 02/01/18] Clopidogrel Bisulfate [Plavix] 75 mg PO DAILY #30 tab 01/13/18 [Rx Confirmed 02/01/18] icosapent ethyl 1 gram capsule 2 g PO BID #120 cap 01/24/18 [Rx Confirmed 02/01/18] pregabalin 50 mg capsule 50 mg PO BID #60 cap 01/24/18 [Rx Confirmed 02/01/18] insulin aspart U- 100 100 unit/mL subcutaneous pen See Rx Instructions SC .COMPLEX #30 ml 02/01/18 [Rx Confirmed 02/01/18] atorvastatin 80 mg tablet 80 mg PO QHS #30 tab 02/09/18 [Rx] loperamide 2 mg tablet 2 mg PO 4X/DAY PRN PRN #20 tab 02/09/18 [Rx Confirmed 02/09/18] lorazepam 0.5 mg tablet 0.5 mg PO QHS PRN #30 tab 02/09/18 [Rx] miconazole nitrate 2 % topical powder 1 applic TOPICAL DAILY #85 g 02/09/18 [Rx Confirmed 02/09/18] promethazine 12.5 mg tablet 12.5 mg PO TID PRN #20 tab 02/09/18 [Rx Confirmed 02/09/18] venlafaxine ER 150 mg capsule,extended release 24 hr 150 mg PO DAILY #90 cap 02/09/18 [Rx] nitroglycerin 0.4 mg sublingual tablet 0.4 mg SUBLINGUAL Q5M PRN #25 tab 02/18/18 [Rx Confirmed 02/18/18] [facility] Medical History Essential (primary) hypertension (Chronic) Atherosclerosis of coronary artery bypass graft without angina pectoris (Chronic) Thyroid mass (Chronic) Syncope (Chronic) Vertigo (Chronic) Chronic renal insufficiency (Chronic) Sleep apnea (Chronic) Menieres disease (Chronic) Ulcerative colitis (Chronic) Hyperlipidemia (Chronic) DM2 (diabetes mellitus, type 2) (Chronic) CKD (chronic kidney disease) stage 3, GFR 30-59 ml/min (Chronic) HTN (hypertension) (Chronic) Hypertensive chronic kidney disease with stage 1 through stage 4 chronic kidney disease, or unspecified chronic kidney disease (Chronic) Surgical History H/O coronary artery bypass surgery (Resolved 05/18/12) History of coronary artery stent placement (Resolved 01/12/18) H/O colectomy (Acute) H/O sinus surgery (Acute) H/O total hysterectomy (Acute) gallbdder removal (Acute) history closed fissure (Acute) ileostomy (Acute) left thumb surgery (Acute) lysis of adhesion (Acute) vestibular nerve surgery for Meniere's (Acute) ABD abscess removal (Resolved) Family History Mother CVA (cerebral vascular accident) Diabetes Brother Heart disease of CAD at 65 Myocardial infarction Pancreatitis Father Cancer lymphomia Lymphoma Grandmother Myocardial infarction of CT in her 70s Sister COPD (chronic obstructive pulmonary disease) Social History Smoking Status: Former smoker how long ago did patient quit smokin, 0.5p/d second hand exposure: Yes alcohol intake: never substance use type: does not use caffeine: Yes Type: coffee eating out: 1-3 times/week what type of physical activity do you participate in: none seatbelt use: always do you feel safe at home: Yes ROS Const Const: Positive for fatigue and weakness; negative for difficulty sleeping, frequent falls, excessive sweating or headache(s) Eyes Eyes: Negative for loss of peripheral vision, transient loss of vision, blurry vision, tunnel vision or double vision ENT ENT: Negative for headache(s), dizziness, Nosebleed/epistaxis or balance problems Cardio Chest Pain: Yes Frequency: monthly, other (couple times a month, relieved with nitro) Character: tightness Onset: exercise Location: mid sternal, left chest, other (BUE) Duration: minutes Exacerbation: activity Relieving: rest, other (NTG SL) Palpitations: No Edema: None Muscle aches with walking: None Resp Respiratory: Positive for SOB with activity (SOB with little activity) and other (Occasional SOB when laying in bed); negative for SOB at rest, SOB orthopnea\SOB lying down, paroxysmal nocturnal dyspnea or Cough GI GI: Negative nausea, heartburn, black,tarry stools or vomiting : Negative for hematuria Musc Musc: Negative for balance problems, muscle aches/ myalgia, muscle weakness or joint pain Skin Skin: Negative non-healing lesions, unusual bruising or rash Neuro Neuro: Positive for weakness; negative for frequent falls, headache(s), blurry vision, double vision, dizziness, lightheadedness, orthostatic symptoms, near syncope, syncope or lack of coordination Jose Hematologic/Lymphatic: Negative for easy bruising or easy bleeding Endo Endo: Positive for fatigue; negative for excessive sweating or increased thirst/drinking Psych Psych: Negative for anxiety or depression Allergy Allergy/Immunology: Negative for hives, Negative for rash Cardiology Exam Const Appearance: cooperative, healthy appearing, well developed, well groomed and no acute distress Nutritional Appearance: well nourished and average body habitus Orientation: alert, awake and oriented x3 Head Head: normal to inspection, normocephalic and atraumatic Ears: hearing grossly normal bilaterally and external ears normal Nose: external nose normal, nasal mucous membranes and turbinates normal, nares normal, septum normal, no nasal discharge Face and Sinus: face symmetric Mouth: oral mucosae normal, tongue normal, oropharynx normal and moist mucous membranes Teeth and gingiva: dentition normal Throat: posterior oropharynx normal, tonsils normal and uvula midline Eyes General: appearance normal, both eyes and all related structures Eyelids: eyelids normal Conjunctivae: conjunctivae normal Pupils: PERRL, normal by confrontation and accommodation normal EOM: EOM intact bilaterally Neck Neck: normal visual inspection, trachea midline and no JVD JVD: +5 Carotids: normal carotid upstroke and bounding pulses Chest Chest inspection: normal inspection of the chest, symmetric chest movement and normal respiratory effort Auscultation: Bilateral: Clear to Auscultation Cardio Palpation: normal PMI Rate: regular rate Rhythm: regular rhythm Heart sounds: S1 normal, S2 normal and normal, physiologic split S2; negative rub, gallop or murmur GI GI: normal to inspection, soft, no hepatosplenomegaly and bowel sounds present Neuro General: alert, awake, oriented x3, no focal sensory deficit, gait normal and moves all extremities Skin Skin: no rashes or lesions noted Extremities Pulses: Normal: Right Femoral Pulse, Left Femoral Pulse, Right Dorsalis Pedis Pulse, Left Dorsalis Pedis Pulse, Right Posterior Tibial Pulse, Left Posterior Tibial Pulse, Right Radial Pulse, Left Radial Pulse Lower Extremity Edema: None: Bilateral Musculoskel Musculoskeletal: No joint tenderness Psych Psychological: normal affect Assessment AND Plan 1. H/O coronary artery bypass surgery Z95.1 CABG x 4 JONES-LAD, SVG-D1, SVG-OM1, SVG-LPDA 05/18/2012 Plan She does have coronary artery disease as noted above in the history of presenting illness. At this time she appears to be fairly well revascularized. I suspect that some of her discomfort is noncoronary in origin. We will continue to observe her closely. 2. Atherosclerosis of coronary artery bypass graft without angina pectoris I25.810 CABG x 4 JONES-LAD, SVG-D1, SVG-OM1, SVG-LPDA 05/18/2012 PCI-CLINTON mid D1 with a 2.25 x 12 Promus Synergy 01/12/2018 Mid LAD and Cx 08/30/2012, D1 and prox OM1 09/14/12, Prox SVG, Distal SVG to the Mid OM 10/31/2012 Plan I have suggested to her that perhaps some of her chest discomfort is noncoronary her ejection fraction has normalized which is good and therefore she should try and minimize activities which would bring on any chest discomfort. At this time I do not think that she will be a candidate for any repeat angioplasty and/or stenting or repeat bypass surgery. 3. Essential (primary) hypertension I10 Plan Her blood pressure appears to be under excellent control at this time on the current medical regimen no changes will be made. Once again her echocardiogram demonstrated preserved ejection fraction and stage I diastolic dysfunction 4. Mixed hyperlipidemia E78.5 Plan She does have a history of hyperlipidemia with markedly elevated triglycerides. She says that her blood sugars have been uncontrolled and attempts to control the above should be made and a repeat lipid profile performed. Plan Detail Other Medications Refilled: Follow Up 4 Months (mmm) Coding Level of Care Code Off vis,est,level 4 Diagnoses H/O coronary artery bypass surgery Z95.1 Atherosclerosis of coronary artery bypass graft without angina pectoris I25.810 Essential (primary) hypertension I10 Mixed hyperlipidemia E78.5 Coding Level of Care Code Off vis,est,level 4 Diagnoses H/O coronary artery bypass surgery Z95.1 Atherosclerosis of coronary artery bypass graft without angina pectoris I25.810 Essential (primary) hypertension I10 Mixed hyperlipidemia E78.5 02/18/18 1451 <Electronically signed by Fish Stone MD> Date Fish Stone MD Cosigner Signature: Date (if applicable) CC: Shannan Mcgrath MD PT D/C SUMMARY (1) Observed: 02/15/2018 Status: F Source: [place] 12:49 PM [facility] [place] [facility] Physical Therapy [address] [place] [address] Fax REHABILITATION SERVICES DISCHARGE SUMMARY MR#: [id number] Acct: [id number] Name: AILYN MÉNDEZ Rep #: [id number] : 1960 57 From: Merced Horvath PT, Cert. 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 Discharge Date: Please see the following information for a summary of their discharge status. - Subjective Subjective: PATIENT REPORTS SHE HAS BEEN SICK DUE TO A NEW MEDICATION SHE STARTED FEB 02 2018. SHE REPORTS HER GASTROPARESIS IS STILL FLARED UP. FOLLOW WITH NAIMA STRANGE ON FEB 07 2018 AND THEY STOPPED THE MEDICINE. FOLLOW UP WITH DR. JOHN FEB 08 2018 AND PATIENT REPORTS HE TOLD HER TO STOP THE AQUATIC THERAPY. SHE REPORTS HE ALSO WANTED TO INCREASE HER PAIN MEDS AND SHE REFUSED. APPOINTMENTS PENDING WITH DR. STONE WEDNESDAY AND DR. MCGRATH. PATIENT REPORTS THE WATER FELT GOOD WHILE SHE WAS IN THERE BUT MORE PAIN AFTER. SHE REPORTS SHE DOES NOT WANT TO TRY ANY MORE PT EITHER. PATIENT REPORTS SHE DID THANKSGIVING DINNER WITH ONE HELPER FOR EVERYONE IN HER APARTMENT [place]PLE[place], HELPED BACK 100 DOZEN COOKIES FOR A COMPANY AND NOW THE PEOPLE IN HER APARTMENT ARE UPSET WITH HER BECAUSE SHE IS NOT GOING TO FIX [employer] DINNER. - Pain MID LOW BACK Pain Intensity (Out of 10): 9 RIGHT HIP Pain Intensity (Out of 10): 8 RIGHT THIGH Pain Intensity (Out of 10): 8 LEFT HIP Pain Intensity (Out of 10): 8 - Objective Objective/Function: PATIENT HAS ONLY BEEN ABLE TO ATTEND 4 WATER SESSIONS SINCE 01/24/18. THERE ARE NO SIGNIFICANT CHANGES SINCE LAST RE-EVAL ON THAT DATE EXCEPT PATIENT IS REPORTING HIGHER PAIN LEVELS. SHE DID WALK IN WITH HER WALKER TODAY AND I ENCOURAGED CONTINUED USE OF THE WALKER FOR SAFETY. SHE IS WEARING HER TENS UNIT AND REPORTS SHE DOES GET SOME RELIEF USING IT. SHE REALLY JUST SEEMS TO BE IN A LOT OF PAIN AND TRANSFERS ARE MORE SLOW AND GUARDED THAN LAST VISIT. PATIENT IS REPORTING A RATHER HIGH ACTIVITY LEVEL CONSIDERING HOW MUCH PAIN SHE IS REPORTING. - Goals Goal 1:: DECREASE C/O LOW BACK AND MARCEL LE SX'S Goal Progress: Not Progressing Goal 2:: IMPROVE PERSONAL CARE, LIFTING, WALKING, SITTING, STANDING, SLEEP, SOCIAL LIFE, TRAVEL AND HOMEMAKING FUNCTION Goal Progress: Not Progressing Goal 3:: INDEP HOME AND OR WATER EX PROGRAM Goal Progress: Not Progressing - Plan Plan: D/C DUE TO LACK OF IMPROVEMENT, PATIENT NOT BEING ABLE TO CONSISTANTLY ATTEND APPOINTMENTS, HER STATING DR. JOHN TOLD HER TO STOP PT AND HER REQUEST FOR D/C. - D/C Information If there are questions or concerns regarding this patient's physical therapy, please feel free to call me at [phone]. Thank you for the referral of this patient. Sincerely, Merced Horvath <Electronically signed by Merced Horvath PT, Cert. MDT> 02/15/18 1249 CC: Shannan Mcrgath MD; Naima Strange NP ADE Signed INTERNAL MEDICINE Observed: 02/10/2018 Status: F Source: [place] OFFICE VISIT 10:21 AM [facility] [address] [place] [address] [place] [address] OFFICE VISIT Date of Service: 02/09/18 MR#: [id number] Acct: [id number] Name: AILYN MÉNDEZ Rep #: [id number] : 1960 Provider: Naima Strange NP Age/Sex: 57/F Location: [facility] Status: Signed Intake Vital Signs02/09/18 Body Mass Index (BMI) 30.9 02/09/18 Height 5 ft 8 in Intake Visit Reasons: Vomiting AND Diarrhea since Mon Chief Complaint: vomiting, diarrhea, fatigue Is patient in pain?: Yes (abdominal cramps) Pain scale (1- 10): 7 Allergies cinnamon [Cinnamon] Allergy (Verified 02/01/18 13:27) Anaphylaxis Influenza Virus Vaccines Allergy (Verified 02/01/18 13:27) Shortness of breath liraglutide [From Victoza] Allergy (Verified 02/01/18 13:27) Anaphylaxis metronidazole [From Flagyl] Allergy (Verified 02/01/18 13:27) Hives Metronidazole HCl [From Flagyl] Allergy (Verified 02/01/18 13:27) Hives Penicillins Allergy (Verified 02/01/18 13:27) Hives Sulfa (Sulfonamide Antibiotics) Allergy (Verified 02/01/18 13:27) Hives ciprofloxacin [From Cipro] Adverse Reaction (Verified 02/01/18 13:27) Nausea codeine Adverse Reaction (Verified 02/01/18 13:27) Stops Ileostomy dicyclomine HCl [From Bentyl] Adverse Reaction (Verified 02/01/18 13:27) Nausea metformin HCl [From Glucophage] Adverse Reaction (Verified 02/01/18 13:27) Nausea Fwswgnf-Cgl-Msn Reductase Inhibitor Adverse Reaction (Verified 02/01/18 13:27) Nausea/joints ache Medications Baclofen 10 mg PO QHS 11/24/16 [History Confirmed 02/01/18] tramadol 50 mg tablet 50 mg PO BID PRN PRN tab 05/05/17 [History Confirmed 02/01/18] Hydrocortisone 1 applic TOPICAL BID 06/02/17 [History Confirmed 02/01/18] nitroglycerin 0.4 mg sublingual tablet 0.4 mg SUBLINGUAL Q5M PRN #25 tab 06/08/17 [Rx Confirmed 02/01/18] Furosemide [Lasix] 40 mg PO DAILY 07/07/17 [History Confirmed 02/01/18] insulin glargine (U-100) 100 unit/mL (3 mL) subcutaneous pen 80 units SC BID ml 09/02/17 [History Confirmed 02/01/18] isosorbide dinitrate 30 mg tablet 30 mg PO TID #90 tab 09/21/17 [Rx Confirmed 02/01/18] magnesium oxide 400 mg (241.3 mg magnesium) tablet 400 mg PO BID #60 tab 09/21/17 [Rx Confirmed 02/01/18] metoprolol tartrate 50 mg tablet 75 mg PO BID #90 tab 09/21/17 [Rx Confirmed 02/01/18] buprenorphine 7.5 mcg/hour weekly transdermal patch 1 patch TRANSDERMAL QWEEK 10/18/17 [History Confirmed 02/01/18] omeprazole 20 mg capsule,delayed release 20 mg PO DAILY #90 cap 10/19/17 [Rx Confirmed 02/01/18] calcium carbonate 600 mg calcium (1,500 mg) tablet 600 mg PO BID #60 tab 11/30/17 [Rx Confirmed 02/01/18] cholecalciferol (vitamin D3) 2,000 unit capsule 2,000 unit PO DAILY #90 cap 11/30/17 [Rx Confirmed 02/01/18] Aspirin E.C. [Ecotrin] 81 mg PO DAILY 01/11/18 [History Confirmed 02/01/18] Clopidogrel Bisulfate [Plavix] 75 mg PO DAILY #30 tab 01/13/18 [Rx Confirmed 02/01/18] icosapent ethyl 1 gram capsule 2 g PO BID #120 cap 01/24/18 [Rx Confirmed 02/01/18] pregabalin 50 mg capsule 50 mg PO BID #60 cap 01/24/18 [Rx Confirmed 02/01/18] insulin aspart U- 100 100 unit/mL subcutaneous pen See Rx Instructions SC .COMPLEX #30 ml 02/01/18 [Rx Confirmed 02/01/18] atorvastatin 80 mg tablet 80 mg PO QHS #30 tab 02/09/18 [Rx] loperamide 2 mg tablet 2 mg PO 4X/DAY PRN PRN #20 tab 02/09/18 [Rx Confirmed 02/09/18] lorazepam 0.5 mg tablet 0.5 mg PO QHS PRN #30 tab 02/09/18 [Rx] miconazole nitrate 2 % topical powder 1 applic TOPICAL DAILY #85 g 02/09/18 [Rx Confirmed 02/09/18] ondansetron 4 mg disintegrating tablet 4 mg PO TID PRN 5 Days #20 tab 02/09/18 [Rx Confirmed 02/09/18] promethazine 12.5 mg tablet 12.5 mg PO TID PRN #20 tab 02/09/18 [Rx Confirmed 02/09/18] venlafaxine ER 150 mg capsule,extended release 24 hr 150 mg PO DAILY #90 cap 02/09/18 [Rx] Post menopausal: Yes PFSH Medical History Thyroid mass (Chronic) Syncope (Chronic) Vertigo (Chronic) Chronic renal insufficiency (Chronic) Sleep apnea (Chronic) Menieres disease (Chronic) Ulcerative colitis (Chronic) CAD (coronary artery disease) (Chronic) Hyperlipidemia (Chronic) Benign essential HTN (Chronic) DM2 (diabetes mellitus, type 2) (Chronic) Hx of coronary artery disease (Chronic) CKD (chronic kidney disease) stage 3, GFR 30-59 ml/min (Chronic) HTN (hypertension) (Chronic) Hypertensive chronic kidney disease with stage 1 through stage 4 chronic kidney disease, or unspecified chronic kidney disease (Chronic) Surgical History History of coronary artery stent placement (Chronic 2012) S/P CABG (coronary artery bypass graft) (Chronic 2012) H/O colectomy (Acute) H/O sinus surgery (Acute) H/O total hysterectomy (Acute) gallbdder removal (Acute) history closed fissure (Acute) ileostomy (Acute) left thumb surgery (Acute) lysis of adhesion (Acute) vestibular nerve surgery for Meniere's (Acute) ABD abscess removal (Resolved) Family History Mother CVA (cerebral vascular accident) Diabetes Brother Heart disease of CAD at 65 Myocardial infarction Pancreatitis Father Cancer lymphomia Lymphoma Grandmother Myocardial infarction of CT in her 70s Sister COPD (chronic obstructive pulmonary disease) Social History Smoking Status: Former smoker how long ago did patient quit smokin, 0.5p/d second hand exposure: Yes alcohol intake: never substance use type: does not use caffeine: Yes Type: coffee eating out: 1-3 times/week what type of physical activity do you participate in: none seatbelt use: always do you feel safe at home: Yes HPI HPI Chief Complaint: vomiting, diarrhea, fatigue Details: AILYN MÉNDEZ, is a 57 F who presents to the office today for acute visit for complaints of vomiting, nausea and diarrhea. The patient has a past medical history as listed above. The patient presents today with complaints of nausea, vomiting and diarrhea that is been going on for about 3 days. The patient states she was recently started on Aricept for memory issues from her neurologist and is concerned it may be due to the new medication because nausea, vomiting, and diarrhea are potential side effects. The patient complains of constant nausea, vomiting multiple times a day. The patient has ileostomy and reports having to empty the bag every hour of liquid stool. The patient states that she is just tried Imodium x1 which had little effect. She has Zofran that she has not utilized yet. She denies any significant new abdominal pain but states that she has intermittent abdominal cramping 7 out of 10 pain which is worsened after she eats. She denies being around sick contacts, fever or chills. She denies any other aggravating or alleviating factors. The patient otherwise denies any fever, chills, shortness of breath, chest pain or pressure, palpitations, orthopnea, lower extremity edema, syncope or presyncopal episodes. ROS Const Constitutional: Positive for fatigue; no body ache, chills, headache(s), weakness or fever(s) Eyes Eyes: No blurry vision, change in vision, eye pain or discharge ENT ENT: No headache(s), abnormal hearing, ear pain, ear pressure, tinnitus, dizziness/vertigo or balance problems Resp Respiratory: No cough, shortness of breath or wheezing Cardio Cardiology: No chest pain at rest, shortness of breath, dyspnea on exertion or palpitations Gastro GI: Positive for abdominal pain, diarrhea, nausea/dyspepsia, cramping and vomiting (bile); no bloating Musc Musculoskeletal: No muscle weakness Neuro Neurology: No headache(s), weakness or abnormal hearing Endo Endocrine: Positive for fatigue Aller/Imm Allergy/Immunologic: No wheezing Exam Const General: cooperative, no acute distress Orientation: alert, awake, oriented x3 HENMT Head: atraumatic, normocephalic Ears: hearing grossly normal bilaterally Resp Effort AND Inspection: normal respiratory effort, able to speak in complete sentences Auscultation: Bilateral: Clear to Auscultation Cardio Rate: regular rate Rhythm: regular rhythm Heart Sounds: S2 normal, S1 normal GI Palpation: soft, no hepatosplenomegaly, tender (Mild) in the epigastrum Other: Healed previous surgical site, mild epigastric tenderness present on exam, ileostomy bag present with brown liquid stool Musc Musculoskeletal: No muscle weakness Neuro General: alert, awake, oriented x3, moves all extremities, CN's II-XI intact bilaterally Extrem General: no clubbing, cyanosis or edema Psych Appearance: grossly normal Mental Status: mental status grossly normal Mood: congruent mood Affect: normal affect Assessment AND Plan Problems 1. Nausea and vomiting R11.2 2. Diarrhea R19.7 Plan Will discontinue Aricept as these are all potential side effects of the Aricept medication, and her symptoms do not seem infectious at this time. Did discuss with patient that the half-life of Aricept is 70 hours so it will take a while to get out of her system. Discussed following up with neurology to notify them that she discontinued the medication. 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 Patient educated on on side effects of medication. Patient educated on signs and symptoms that would warrant emergency medical care. Patient encouraged clear liquid diet and advance as tolerated. Patient to notify our office tomorrow with how she is feeling. Medications New: Discontinued: donepezil (Aricept) Discontinued Reason: 5 mg PO DAILY Order Changed ondansetron HCl Discontinued Reason: Orde4 mg PO Q8H PRN PRN 20 tabs 0RF Nausea/Vomit r Changed ing Plan Detail Follow Up As previously scheduled or sooner if needed Coding Level of Care Code Off vis,est,level 3 Diagnoses Nausea and vomiting R11.2 Diarrhea R19.7 02/10/18 1021 <Electronically signed by Naima LEOS> Date Naima Cris DERIC Fisher Signature: Date (if applicable) CC: ENDOCRINOLOGY VISIT Observed: 02/02/2018 Status: F Source: [place] REPORT 7:51 AM [facility] [address] [place] [address] OFFICE VISIT Date of Service: 02/01/18 MR#: [id number] Acct: [id number] Name: AILYN MÉNDEZ Rep #: [id number] : 1960 Provider: Jane Saez NP Age/Sex: 57/F Location[place] [facility] [place] Status: Signed HPI History of present illness Ailyn Méndez is a 57 year old female who presents for follow up of diabetes type 2. Is a walk in who states her PCP wants her fit in schedule due to high BG. Reports BG readings up to 400 following recent hospuital stay related to chest pain and resulting in stent placement. Diagnosed in 1989 according to pt. Did the why weight program. She reports she is now eating 4-6 small meals daily . She feels better on small meals due to gastroparesis. Does have meal replacement for breakfast which only contains 16 grams of carb. Had surgery for abdominal wound. Still has some discomfort. Recently had nasal-sinus surgery. Given oral steroids. . Had received cortisone injection in her back for pain relief. Reports she did miss several injections for about 2 weeks within last 4-6 weeks. Diet is varied. Does not carb count. Is not consistent in diet. At time of visit: -Pt denies symptoms of hypertensive emergency (CP,SOB,WOLF, or blurred vision) and hypotension(dizziness or lightheadedness) -Pt denies symptoms of hypoglycemia ( sweaty, confusion, anxiety, tremor, hunger, palpitations) and hyperglycemia ( polydipsia, polyuria) -Pt denies potential medication adverse effect. Hypoglycemia Aware of hypoglycemia: When awake Able to self treat low BG: Yes Frequent low Blood sugar: No Has supply of glucagon: No Currently continues on basaglar 80 units twice daily Meal insulin 25-40 units per meal and sliding scale insulin . Checking BG at breakfast, lunch and dinner. Consuming 30 grams of carb for most meals. . She has been using her scale of 150-199=27, 200-259=32, 260-324=42, 325-324=37. . Pt denies difficulty with injections or self monitoring of BG. Denies any signs of infection or irritation at site of injections. Reports taking insulin as directed BG readings are on phone. Able to transfer onto computer with some difficulty and then download onto paper copy. Type: type 2, insulin-requiring Glucose control symptoms: Reports high fasting glucose and high post-meal glucose Weight and fatigue symptoms: Denies snoring Cardiopulmonary symptoms: Reports chest pain at rest; denies dyspnea on exertion, lightheadedness or myalgias GI symptoms: Reports nausea/dyspepsia and vomiting; denies constipation or diarrhea Other symptoms: Denies blurry vision or change in vision Pertinent visit history: Reports recent hospital admission Self monitoring: Yes Glucose testing: demonstrates correct use of meter, understands testing schedule Physical activity: sedentary lifestyle Exam Const General: comfortable, no acute distress Nutritional Appearance: overweight Orientation: oriented x3 [facility] Head: normal to inspection, atraumatic Ears: hearing grossly normal bilaterally Nose: external nose normal Face and sinus: normal facial exam Mouth: oral mucosae normal Teeth and gingiva: dentition normal Eyes General: appearance normal, both eyes and all related structures Eyelids: eyelids normal Conjunctivae: conjunctivae normal Sclera: sclerae normal Neck Neck: normal visual inspection, full ROM Resp Effort AND Inspection: normal respiratory effort, able to speak in complete sentences, symmetric chest movement Skin General: no rashes or lesions noted Neuro General: gait normal, oriented x3 Cognition: normal cognition Speech: speech normal Gait: normal gait Extrem General: normal to inspection, no pedal edema Psych Appearance: well kempt Mental Status: mental status grossly normal Mood: congruent mood Affect: normal affect Speech and Movement: speech and movement normal Attitude: cooperative Thought Process: normal Thought Content: normal Judgment: judgment good Intake Vital Signs02/01/18 Body Mass Index (BMI) 30.9 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 Accompanied by: Self Allergies cinnamon [Cinnamon] Allergy (Verified 02/01/18 13:27) Anaphylaxis Influenza Virus Vaccines Allergy (Verified 02/01/18 13:27) Shortness of breath liraglutide [From Victoza] Allergy (Verified 02/01/18 13:27) Anaphylaxis metronidazole [From Flagyl] Allergy (Verified 02/01/18 13:27) Hives Metronidazole HCl [From Flagyl] Allergy (Verified 02/01/18 13:27) Hives Penicillins Allergy (Verified 02/01/18 13:27) Hives Sulfa (Sulfonamide Antibiotics) Allergy (Verified 02/01/18 13:27) Hives ciprofloxacin [From Cipro] Adverse Reaction (Verified 02/01/18 13:27) Nausea codeine Adverse Reaction (Verified 02/01/18 13:27) Stops Ileostomy dicyclomine HCl [From Bentyl] Adverse Reaction (Verified 02/01/18 13:27) Nausea metformin HCl [From Glucophage] Adverse Reaction (Verified 02/01/18 13:27) Nausea Csehxwt-Drj-Ppi Reductase Inhibitor Adverse Reaction (Verified 02/01/18 13:27) Nausea/joints ache Medications Ondansetron HCl [Zofran] 4 mg PO Q8H PRN PRN #20 tab 09/05/16 [Rx Confirmed 02/01/18] Baclofen 10 mg PO QHS 11/24/16 [History Confirmed 02/01/18] loperamide 2 mg tablet 2 mg PO 4X/DAY PRN PRN tab 02/12/17 [History Confirmed 02/01/18] miconazole nitrate 2 % topical powder 1 applic TOPICAL DAILY 03/23/17 [History Confirmed 02/01/18] tramadol 50 mg tablet 50 mg PO BID PRN PRN tab 05/05/17 [History Confirmed 02/01/18] Hydrocortisone 1 applic TOPICAL BID 06/02/17 [History Confirmed 02/01/18] nitroglycerin 0.4 mg sublingual tablet 0.4 mg SUBLINGUAL Q5M PRN #25 tab 06/08/17 [Rx Confirmed 02/01/18] Furosemide [Lasix] 40 mg PO DAILY 07/07/17 [History Confirmed 02/01/18] insulin glargine (U-100) 100 unit/mL (3 mL) subcutaneous pen 80 units SC BID ml 09/02/17 [History Confirmed 02/01/18] isosorbide dinitrate 30 mg tablet 30 mg PO TID #90 tab 07/17/18 [Rx Confirmed 02/01/18] magnesium oxide 400 mg (241.3 mg magnesium) tablet 400 mg PO BID #60 tab 09/21/17 [Rx Confirmed 02/01/18] metoprolol tartrate 50 mg tablet 75 mg PO BID #90 tab 09/21/17 [Rx Confirmed 02/01/18] buprenorphine 7.5 mcg/hour weekly transdermal patch 1 patch TRANSDERMAL QWEEK 10/18/17 [History Confirmed 02/01/18] omeprazole 20 mg capsule,delayed release 20 mg PO DAILY #90 cap 10/19/17 [Rx Confirmed 02/01/18] calcium carbonate 600 mg calcium (1,500 mg) tablet 600 mg PO BID #60 tab 11/30/17 [Rx Confirmed 02/01/18] cholecalciferol (vitamin D3) 2,000 unit capsule 2,000 unit PO DAILY #90 cap 11/30/17 [Rx Confirmed 02/01/18] lorazepam 0.5 mg tablet 0.5 mg PO QHS PRN #30 tab 01/10/18 [Rx Confirmed 02/01/18] Aspirin E.C. [Ecotrin] 81 mg PO DAILY 01/11/18 [History Confirmed 02/01/18] Venlafaxine HCl [Effexor Xr] 150 mg PO DAILY 01/11/18 [History Confirmed 02/01/18] Atorvastatin Calcium [Lipitor] 80 mg PO QHS #30 tab 01/13/18 [Rx Confirmed 02/01/18] Clopidogrel Bisulfate [Plavix] 75 mg PO DAILY #30 tab 01/13/18 [Rx Confirmed 02/01/18] icosapent ethyl 1 gram capsule 2 g PO BID #120 cap 01/24/18 [Rx Confirmed 02/01/18] pregabalin 50 mg capsule 50 mg PO BID #60 cap 01/24/18 [Rx Confirmed 02/01/18] donepezil 5 mg tablet 5 mg PO DAILY 02/01/18 [History Confirmed 02/01/18] insulin aspart U- 100 100 unit/mL subcutaneous pen See Rx Instructions SC .COMPLEX #30 ml 02/01/18 [Rx Confirmed 02/01/18] Nurse's Note: blood sugars : low : 138 high : 500 [facility] Medical History Thyroid mass (Chronic) Syncope (Chronic) Vertigo (Chronic) Chronic renal insufficiency (Chronic) Sleep apnea (Chronic) Menieres disease (Chronic) Ulcerative colitis (Chronic) CAD (coronary artery disease) (Chronic) Hyperlipidemia (Chronic) Benign essential HTN (Chronic) DM2 (diabetes mellitus, type 2) (Chronic) Hx of coronary artery disease (Chronic) CKD (chronic kidney disease) stage 3, GFR 30-59 ml/min (Chronic) HTN (hypertension) (Chronic) Hypertensive chronic kidney disease with stage 1 through stage 4 chronic kidney disease, or unspecified chronic kidney disease (Chronic) Surgical History History of coronary artery stent placement (Chronic 2012) S/P CABG (coronary artery bypass graft) (Chronic 2012) H/O colectomy (Acute) H/O sinus surgery (Acute) H/O total hysterectomy (Acute) gallbdder removal (Acute) history closed fissure (Acute) ileostomy (Acute) left thumb surgery (Acute) lysis of adhesion (Acute) vestibular nerve surgery for Meniere's (Acute) ABD abscess removal (Resolved) Family History Mother CVA (cerebral vascular accident) Diabetes Brother Heart disease of CAD at 65 Myocardial infarction Pancreatitis Father Cancer lymphomia Lymphoma Grandmother Myocardial infarction of CT in her 70s Sister COPD (chronic obstructive pulmonary disease) Social History Smoking Status: Former smoker how long ago did patient quit smokin, 0.5p/d second hand exposure: Yes alcohol intake: never substance use type: does not use caffeine: Yes Type: coffee eating out: 1-3 times/week what type of physical activity do you participate in: none seatbelt use: always do you feel safe at home: Yes ROS Const Constitutional: Positive for change in appetite; no anorexia, body ache, chills, fatigue, fever(s), frequent falls, decreased energy, malaise, night sweats, weakness, weight change, sleep problems, abnormal sleep pattern, other, headache(s), snoring or excessive sweating Eyes Eyes: No blurry vision, change in vision, double vision, discharge, dry eyes, bulging eyes, floaters, visual disturbances, eye pain, light sensitivity, spots in vision, tunnel vision or other ENT ENT: No abnormal hearing, ear pain, ear discharge, ear pressure, hearing loss, tinnitus, dizziness/vertigo, balance problems, nosebleed/epistaxis, nasal congestion, nasal obstruction, nose pain, sinus pressure, sinus pain, nasal discharge, post nasal drip, headache(s), facial pain, dental pain, dry mouth, difficulty swallowing, bad breath, hoarseness, lip swelling, mouth lesions, mouth pain, sore throat, tongue swelling, throat swelling, other or neck pain Resp Respiratory: No cough, change in phlegm color, chest congestion, excessive phlegm production, hemoptysis, pain on inspiration, shortness of breath, pain with cough, snoring, stridor, wheezing or other Cardio Cardiology: Positive for chest pain at rest, chest pain with exertion and generalized swelling; no leg pain with exertion, excessive sweating, shortness of breath, dyspnea on exertion, irregular heart rhythm, lightheadedness, orthopnea, radiating jaw, neck or arm pain, fast heart rate, slow heart rate, palpitations or other Gastro GI: Positive for abdominal pain, nausea/dyspepsia and vomiting; no belching, bloating, change in bowel habits, change in stool character, coffee ground emesis, constipation, cramping, diarrhea, heartburn, feeling full early, excessive flatus, incontinent of stools, Vomiting blood/hematemesis, blood in stool, loose stools, Black,tarry stools, pain with swallowing, other or difficulty swallowing Genitourinary-Female: No difficulty urinating, burning urination, painful urination, urinary incontinence, urinary frequency, urinary urgency, urinary hesitancy, urinary retention, blood in urine, Frequent nighttime urination/ nocturia, post void dribbling, suprapubic fullness, side pain, sexual problems, genital lesions, genital itching, hot flashes, abnormal periods, abnormal vaginal bleeding, absent period, painful periods, light periods, heavy periods, difficulty getting , painful intercourse, pelvic pain, vaginal dryness, vaginal odor, Vaginal Itching or other Musc Musculoskeletal: Positive for back pain; no abnormal walking, joint pain, deformity, joint swelling, limited range of motion, loss of height, muscle cramps, muscle weakness, decreased muscle mass, body aches, neck pain, numbness, radiating pain into limb, stiffness, tingling or other Skin Skin: No acne, hair loss, change in hair, nail changes, boil, change in skin color, dry skin, redness, excessive hair growth, yellowing of the skin, lesions, itching, rash, skin pain, skin ulcer, sores, skin swelling, wounds or other Breast Breast: No other Neuro Neurology: No frequent falls, weakness, visual disturbances, abnormal hearing, headache(s), abnormal walking, numbness or tingling Psych Psychiatric: No abnormal sleep pattern, Positive for change in appetite Endo Endocrine: No fatigue, other or excessive sweating Aller/Imm Allergy/Immunologic: No lip swelling, tongue swelling, throat swelling, wheezing or itchy eyes Assessment AND Plan Problems 1. Type 2 diabetes mellitus with complication, with long-term current use of insulin E11.8; Z79.4 Plan Review of BG note patient had higher BG upon discharge. BG over last 5 days note 213-250 which in range of pre hospital stay. Breakfast insulin tends to bring BG down. Lunch insulin usually neutral. Evening meal notes BG goes up approximately 50-100 point. Discussed with patient that her evening meal base will need to be increased as the BG is always higher. As her sliding scale is set for 5 per 50 I would consider working nsulin up toward at least 5 more units. As she is is not carb counting and consuming consistent meals this will yield variable results at best. Discussed with patient the most important aspect will be carb conting her meals and keeping a consistent amount of carb at each meal. I do not think increasing long acting insulin at this time is as useful as covering the meals or using the correction scale more accurately. Insulin pump would be a difficult approach as patient uses as much insulin in one day as is standard for a three day change. U-500 insulin would be an option except for her gastroparesis. She states she has definately been given a diagnosis for the gastroparesis but her BG do not behave in a typical manner for this. RTC as scheduled. Patient Instructions Work on carb counting meals and consistent meal plan. Increase base insulin for evening meal. Can use 5 units per 50 BG correction. Labs today Orders Orders: Medications New: Bad table Discontinued: Plan Detail Additional Comments 1. Please schedule follow up in 3 months. 2. Lab work one week before appointment. 3. Discussed importance of regular exercise and recommend starting or continuing a regular exercise program for good health. 4. The patient was encouraged to lose weight for good health 5. The importance of monitoring blood sugar regularly was reviewed. 6. The importance of monitoring the HBA1c level regularly was reviewed. 7. The importance of prper foot care and regularly checking feet to prevent sores and loss of limbs was reviewed. 8. The importance of keeping BP at or below 130/80 to prevent stroke, heart attacks, kidney failure, blindness was reviewed. Spent approximately 30 minutes with patient with over 50% of time spent in discussion and counseling regarding medication adjustment, symptoms and treatment of hypoglycemia, diet adherence, and checking BG before driving. 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 criteria. Please note revised GLUCOSE reference range effective 2017. LAB L501.1000 7-18 mg/dL High BUN 29 LAB L501.1100 0.55-1.02 mg/dL High CREAT,SERUM 1.50 Result Comment: The validity of the calculated GFR AND GFRAA in patients over 70 years has not been determined. Clinical correlation is essential. LAB L501.1110 >60 mL/min Low EST GFR 38 Result Comment: Non- GFR Calc LAB L501.1115 >60 mL/min Low EST GFR - AA 46 Result Comment: GFR Calc LAB L501.1300 10-20 RATIO Normal BUN/CRE 19.3 LAB L501.1500 6.4-8.2 g/dL T Normal PROT 7.6 LAB L501.1800 3.2-5.0 g/dL Normal ALB 3.3 LAB L501.1950 2.2-4.2 g/dL High GLOB 4.3 LAB L501.2000 0.9-2.4 RATIO Low A/G 0.8 LAB L501.2200 8.5-10.1 mg/dL CA Normal 9.5 LAB L501.4100 15-37 U/L High AST 46 LAB L501.4305 45-117 U/L High ALK P 192 LAB L501.4405 13-56 U/L Normal ALT 36 LAB L501.4600 0.20-1.00 mg/dL T Normal BILI 0.60 LAB L501.5300 136-145 mmol/L NA Normal 141 LAB L501.5600 3.5-5.1 mmol/L K Normal 4.1 LAB L501.5900 98-107 mmol/L CL Normal 101 LAB L501.6100 21.0-32.0 mmol/L Normal CO2 29.0 LAB L501.6200 5-15 Normal GAP 11 Performed By: #### L500.4050, L501.2400, L501.2450 #### [facility] [address], [place], [id number] AMYLASE Collected: 02/01/2018 Status: F Source: [place] 2:41 PM [facility] [place] CODE TESTS RESULT OUT OF RANGE REFERENCE UNITS LAB L501.2400 25-115 U/L Normal SHAUNA 51 Performed By: #### L500.4050, L501.2400, L501.2450 #### [facility] [address], [place], [id number] LIPASE Collected: 02/01/2018 Status: F Source: [place] 2:41 PM [facility] [place] TYPE CODE TESTS RESULT OUT OF RANGE REFERENCE UNITS LAB L501.2450 73-393 U/L Normal LIPASE 171 Performed By: #### L500.4050, L501.2400, L501.2450 #### [facility] [address] [place], [address] CBC W/DIFF, AUTOMATED Collected: 02/01/2018 Status: F Source: [place] 2:41 PM [facility] [place] CODE TESTS RESULT OUT OF RANGE REFERENCE UNITS LAB L100.1000 4.4-11.0 K/mm3 Normal WBC 7.7 LAB L100.1200 4.2-5.4 M/mm3 Normal RBC 4.83 LAB L100.1300 12.0-15.0 g/dl Normal HGB 13.2 LAB L100.1400 37-47 % Normal HCT 41.8 LAB L100.1500 81-99 fL Normal MCV 86.5 LAB L100.1600 27.0-32.0 pg Normal MCH 27.3 LAB L100.1700 32-36 g/gl Low MCHC 31.6 LAB L100.1810 11.6-14.6 % High RDW CV 16.3 LAB L100.1820 35.1-43.9 fl High RDW SD 51.5 LAB L100.1900 150-450 K/mm3 Normal PLT 194 LAB L100.2000 6.2-12.0 fl Normal MPV 12.0 LAB L100.2100 47-70 % Normal NEUT% 56.1 LAB L100.2200 19-41 % Normal LY% 30.7 LAB L100.2300 0-10 % Normal MONO% 5.9 LAB L100.2400 0-5 % High EO% 6.4 LAB L100.2500 0-1 % Normal BASO% 0.4 LAB L100.2550 0.0-0.9 % Normal IM GRAN % 0.500 Result Comment: IG% - Immature Granulocytes (promyelocytes, myelocytes and metamyelocytes) > 1% indicates that a LEFT SHIFT is Present. LAB L100.2620 2.0-7.7 X10 3/uL Normal Absolute Neut 4.3 LAB L100.2720 0.83-4.51 X10 3/ul Normal Absolute Lymph 2.35 Performed By: #### L100.0100 #### [facility] [address] [place], [address] INTERNAL MEDICINE Observed: 01/26/2018 Status: F Source: [place] OFFICE VISIT 2:32 PM [facility] [address] [place] [address] [place] [address] OFFICE VISIT Date of Service: 01/24/18 MR#: [id number] Acct: [id number] Name: AILYN MÉNDEZ Rep #: [id number] : 1960 Provider: Shannan Mcgrath MD Age/Sex: 57/F [place] [facility] [place]: Signed Intake Vital Signs01/24/18 Body Mass Index (BMI) 30.9 01/24/18 Height 5 ft 8 in Intake Visit Reasons: 1 MO FU Chief Complaint: f/u visit Is patient in pain?: Yes (body aches) Allergies cinnamon [Cinnamon] Allergy (Verified 01/11/18 14:00) Anaphylaxis Influenza Virus Vaccines Allergy (Verified 01/11/18 14:00) Shortness of breath liraglutide [From Victoza] Allergy (Verified 01/11/18 14:00) Anaphylaxis metronidazole [From Flagyl] Allergy (Verified 01/11/18 14:00) Hives Metronidazole HCl [From Flagyl] Allergy (Verified 01/11/18 14:00) Hives Penicillins Allergy (Verified 01/11/18 14:00) Hives Sulfa (Sulfonamide Antibiotics) Allergy (Verified 01/11/18 14:00) Hives ciprofloxacin [From Cipro] Adverse Reaction (Verified 01/11/18 14:00) Nausea codeine Adverse Reaction (Verified 01/11/18 14:00) Stops Ileostomy dicyclomine HCl [From Bentyl] Adverse Reaction (Verified 01/11/18 14:00) Nausea metformin HCl [From Glucophage] Adverse Reaction (Verified 01/11/18 14:00) Nausea Itibnny-Ixa-Jye Reductase Inhibitor Adverse Reaction (Verified 01/11/18 14:00) Nausea/joints ache Medications Ondansetron HCl [Zofran] 4 mg PO Q8H PRN PRN #20 tab 09/05/16 [Rx Confirmed 01/11/18] Baclofen 10 mg PO QHS 11/24/16 [History Confirmed 01/11/18] loperamide 2 mg tablet 2 mg PO 4X/DAY PRN PRN tab 02/12/17 [History Confirmed 01/11/18] insulin aspart U- 100 100 unit/mL subcutaneous pen See Protocol SC TIDCM ml 03/23/17 [History Confirmed 01/11/18] miconazole nitrate 2 % topical powder 1 applic TOPICAL DAILY 03/23/17 [History Confirmed 01/11/18] tramadol 50 mg tablet 50 mg PO BID PRN PRN tab 05/05/17 [History Confirmed 01/11/18] Hydrocortisone 1 applic TOPICAL BID 06/02/17 [History Confirmed 01/11/18] nitroglycerin 0.4 mg sublingual tablet 0.4 mg SUBLINGUAL Q5M PRN #25 tab 06/08/17 [Rx Confirmed 01/11/18] Furosemide [Lasix] 40 mg PO DAILY 07/07/17 [History Confirmed 01/11/18] insulin glargine (U-100) 100 unit/mL (3 mL) subcutaneous pen 80 units SC BID ml 09/02/17 [History Confirmed 01/11/18] isosorbide dinitrate 30 mg tablet 30 mg PO TID #90 tab 09/21/17 [Rx Confirmed 01/11/18] magnesium oxide 400 mg (241.3 mg magnesium) tablet 400 mg PO BID #60 tab 09/21/17 [Rx Confirmed 01/11/18] metoprolol tartrate 50 mg tablet 75 mg PO BID #90 tab 09/21/17 [Rx Confirmed 01/11/18] buprenorphine 7.5 mcg/hour weekly transdermal patch 1 patch TRANSDERMAL QWEEK 10/18/17 [History Confirmed 01/11/18] omeprazole 20 mg capsule,delayed release 20 mg PO DAILY #90 cap 10/19/17 [Rx Confirmed 01/11/18] pregabalin 50 mg capsule 50 mg PO BID #60 cap 10/19/17 [Rx Confirmed 01/11/18] calcium carbonate 600 mg calcium (1,500 mg) tablet 600 mg PO BID #60 tab 11/30/17 [Rx Confirmed 01/11/18] cholecalciferol (vitamin D3) 2,000 unit capsule 2,000 unit PO DAILY #90 cap 11/30/17 [Rx Confirmed 01/11/18] lorazepam 0.5 mg tablet 0.5 mg PO QHS PRN #30 tab 01/10/18 [Rx Confirmed 01/11/18] Aspirin E.C. [Ecotrin] 81 mg PO DAILY 01/11/18 [History Confirmed 01/11/18] Insulin Aspart [Novolog Flexpen] 22 units SQ TIDCM 01/11/18 [History Confirmed 01/11/18] Venlafaxine HCl [Effexor Xr] 150 mg PO DAILY 01/11/18 [History Confirmed 01/11/18] Atorvastatin Calcium [Lipitor] 80 mg PO QHS #30 tab 01/13/18 [Rx] Clopidogrel Bisulfate [Plavix] 75 mg PO DAILY #30 tab 01/13/18 [Rx] icosapent ethyl 1 gram capsule 2 g PO BID #120 cap 01/24/18 [Rx Confirmed 01/24/18] Post menopausal: Yes PFSH Medical History Thyroid mass (Chronic) Syncope (Chronic) Vertigo (Chronic) Chronic renal insufficiency (Chronic) Sleep apnea (Chronic) Menieres disease (Chronic) Ulcerative colitis (Chronic) CAD (coronary artery disease) (Chronic) Hyperlipidemia (Chronic) Benign essential HTN (Chronic) DM2 (diabetes mellitus, type 2) (Chronic) Hx of coronary artery disease (Chronic) Surgical History History of coronary artery stent placement (Chronic 2012) S/P CABG (coronary artery bypass graft) (Chronic 2012) H/O colectomy (Acute) H/O sinus surgery (Acute) H/O total hysterectomy (Acute) gallbdder removal (Acute) history closed fissure (Acute) ileostomy (Acute) left thumb surgery (Acute) lysis of adhesion (Acute) vestibular nerve surgery for Meniere's (Acute) ABD abscess removal (Resolved) Family History Mother CVA (cerebral vascular accident) Diabetes Brother Heart disease of CAD at 65 Myocardial infarction Pancreatitis Father Cancer lymphomia Lymphoma Grandmother Myocardial infarction of CT in her 70s Sister COPD (chronic obstructive pulmonary disease) Social History Smoking Status: Former smoker how long ago did patient quit smokin, 0.5p/d second hand exposure: Yes alcohol intake: never substance use type: does not use caffeine: Yes Type: coffee eating out: 1-3 times/week what type of physical activity do you participate in: none seatbelt use: always do you feel safe at home: Yes HPI HPI Chief Complaint: f/u visit Details: AILYN MÉNDEZ, is a 57yo F who presents to the office today for for follow up of recent hospital admission for Chest pain. she had an acute episode of chest pain for which she presented to the ER. She subsequently had a heart Cath and stent placed due to CAD. She is s/p CABG and in stent thrombosis in the past. Currently on plavix and aspirin which she reports compliance with. Blood sugars have however remained very difficult to manage. Last A1C during her hospital stay elevated at 10.6. She now has concerns for increased Neuropathic pain and ? worsening gastroparesis. She reports compliance with her medication but admits to poor compliance with her diet. This to some extent has been attributed to her worsening depression. ROS Const Constitutional: No weight change, chills, fatigue, sleep problems, fever(s), change in appetite, snoring, weakness, frequent falls, headache(s) or excessive sweating Eyes Eyes: No change in vision, eye pain, light sensitivity or blurry vision ENT ENT: No headache(s), abnormal hearing, ear pain, tinnitus, nasal congestion, sore throat or neck pain Resp Respiratory: No snoring, cough, shortness of breath or wheezing Cardio Cardiology: No excessive sweating, chest pain at rest, chest pain with exertion, shortness of breath, dyspnea on exertion, palpitations, orthopnea or lightheadedness Gastro GI: Positive for abdominal pain and nausea/dyspepsia; no change in bowel habits, constipation, vomiting or cramping Genitourinary-Female: No burning urination, painful urination, urinary incontinence, urinary frequency, abnormal vaginal bleeding, pelvic pain or other Musc Musculoskeletal: No neck pain, abnormal walking, joint pain, back pain, limited range of motion, numbness, tingling or muscle weakness Skin Skin: Positive for wounds (sore on top of the right foot. ); no redness, dry skin, itching, lesions or rash Neuro Neurology: No weakness, frequent falls, headache(s), abnormal hearing, abnormal walking, numbness, tingling, abnormal speech, dizziness or memory loss Psych Psychiatric: No change in appetite, No memory loss, No anxiety, No depression, No Thoughts of harming yourself/Others Endo Endocrine: No fatigue, excessive sweating, cold intolerance, increased thirst/drinking, heat intolerance, flushing or increased hunger Aller/Imm Allergy/Immunologic: No wheezing, itchy eyes, hives or seasonal allergy symptoms Jose/Lymp Hematologic/Lymphatic: No easy bleeding, easy bruising or enlarged lymph nodes Exam Const General: cooperative, no acute distress Orientation: alert, awake, oriented x3 HENMT Head: atraumatic, normocephalic Ears: hearing grossly normal bilaterally Resp Effort AND Inspection: normal respiratory effort, able to speak in complete sentences Auscultation: Bilateral: Clear to Auscultation Cardio Rate: regular rate Rhythm: regular rhythm Heart Sounds: S2 normal, S1 normal GI Palpation: soft, no hepatosplenomegaly Other: Musc Musculoskeletal: No muscle weakness Skin Wounds: wounds noted (Left Foot.) Neuro General: alert, awake, oriented x3, moves all extremities, CN's II-XI intact bilaterally Extrem General: no clubbing, cyanosis or edema Psych Appearance: grossly normal Mental Status: mental status grossly normal Mood: congruent mood Affect: normal affect Assessment AND Plan 1. CAD (coronary artery disease) I25.10 Plan S/p recent hospital admission for chest pain with subsequent stenting. Patient still reports chest pain which is typically associated with activity and heavy lifting. self limiting. No other associated factors. Currently on Aspirin and Plavix which she reports compliance with. Scheduled to follow up with Dr. Stone in a month. Advised to call or go to the ER with concerning symptoms. 2. Type 2 diabetes mellitus with complication, with long-term current use of insulin E11.9 Plan Poorly controlled. Most recent A1C of 10.6. Has had problems with medication and dietary compliance ??? worsening depression. Now [facility] and her Significant other has said she would prefer her meals. Appears to have had very good success with this approach in the past. Compliance was strongly encouraged. Appears to now have worsening gastroparesis and neuropathy. I have also advised that she follow up with ANGEL Maddox NP for medication adjustment as needed. She might benefit from an Insulin pump. 3. Mixed hyperlipidemia E78.5 Plan Triglycerides significantly elevated. Currently on a Statin. Fenofibrate discontinued ??? due to Kidney function. Will start on Vascepa. Life style and dietary modifications as above. This note was generated with Your Tribute[employer] software. It may contain incorrect words, spelling, and punctuation that were not noted in checking the note before signing. Plan Detail Other Medications New: icosapent ethyl (Vascepa) administer with food2 grams (2 x 1 gram) PO BID 120 caps 3RF ; swallow whole; do not crush/chew/dissolve/break /cut Coding Level of Care Code Off vis,est,level 4 Diagnoses CAD (coronary artery disease) I25.10 Type 2 diabetes mellitus with complication, with long-term current use of insulin E11.9 Mixed hyperlipidemia E78.5 01/26/18 1432 <Electronically signed by Shannan Mcgrath MD> Date Shannan Mcgrath MD Cosigner Signature: Date (if applicable) CC: RE-EVALUATION - PT (1) Observed: 01/25/2018 Status: F Source: [place] 1:22 PM [facility] [place] [facility] [address] [place] [address]. [address] [place] [address] Fax REEVALUATION / MEDICARE RECERTIFICATION PHYSICAL THERAPY MR#: [id number] Acct: [id number] Name: AILYN MÉNDEZ Rep #: [id number] : 1960 57 From: Merced Horvath PT, Cert. 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 Please see the progress note below for an update on the physical therapy plan of care! Subjective: PATIENT REPORTS SHE HASN'T BEEN HERE BECAUSE THINGS GOT WACKY. PATIENT REPORTS SHE HAS NOT BEEN ABLE TO COME DUE TO ILLNESSS AND CHEST PAINS. SHE REPORTS SHE HAD A HEART EPISODE AND THEY ADMITTED HER TO THE HOSPITAL AND UNDERWENT CARDIAC CATH WITH ANOTHER STENT PLACEMENT. SHE NOW HAS 10 STENTS AND ALTHOUGH SHE STILL HAS BLOCKAGE THEY ARE NOT RECOMMENDING FURTHER SURGERY YET. SHE REPORTS HER SOA ENGINEER DR. STONE RELEASED HER TO COME BACK TO AQUATIC THERAPY OF TODAY AND THAT IF SHE DOES AQUATIC THERAPY SHE WON'T HAVE TO DO CARDIAC REHAB. SHE REPORTS SHE WOULD MUCH RATHER DO AQUATIC THERAPY ALTHOUGH SHE WAS IN A LOT OF PAIN AFTER HER FIRST AQUATIC SESSION [facility] WITH US JANUARY 07 2018. PATIENT REPORTS SHE SAW HER FAMILY DOCTOR - DR. MCGRATH AND SHE AGREED WITH RETURN TO AQUATIC THERAPY. PATIENT REPORTS HER HIP IS KILLER HER TODAY BUT SHE DIDN'T BRING HER CANE STATING SHE FORGOT IT. SHE STATES THAT THE WALKER HELPS MORE THAN THE CANE BUT SHE DOESN'T LIKE TO USE IT IN PUBLIC AND IT IS HARD TO GET IN AND OUT OF THE CAR. PATIENT REPORTS THAT THE PAIN AND PROBLEMS SHE ORIGINALLY CAME TO PT FOR ARE ABOUT THE SAME. Objective/Function: UPON EXAM THERE ARE NO SIGNIFICANT CHANGES WITH BACK AND LE TESTING COMPARED TO INITIAL EVAL. SHE IS STILL VERY TENDER IN HER LOW BACK AND RIGHT HIP. HER HIPS HAVE WEAKNESS AND HER CORE STRENGTH IS POOR. SHE HAS PAIN WITH LUMBAR ROM TESTING ALL PLANES AND SHE HAS MODERATE TO SUMANTH LUMBAR ROM MVMT LOSS ALL PLANES. Plan Plan: AQUATIC THERAPY FOR PAIN RELEIF, POSTURE CORRECTION/STRENGTHENING, INSTRUCTION IN APPROPRIATE BODY MECHANICS AND ACTIVITY MODIFICATIONS. DLS STARTING WITH A NEUTRAL SPINE PROGRESSING ROM TOLERATED. MARCEL LE ROM, STRETCHING AND STRENGTHENING. HEP INSTRUCTION. Goals Goal 1:: DECREASE C/O LOW BACK AND MARCEL LE SX'S Goal Time Frame: 4-6 Weeks Goal Progress: Not Progressing Goal 2:: IMPROVE PERSONAL CARE, LIFTING, WALKING, SITTING, STANDING, SLEEP, SOCIAL LIFE, TRAVEL AND HOMEMAKING FUNCTION Goal Time Frame: 4-6 Weeks Goal Progress: Not Progressing Goal 3:: INDEP HOME AND OR WATER EX PROGRAM Goal Time Frame: 4-6 Weeks Goal Progress: Not Progressing Anticipated Interventions Patient/Client Instruction: Educate patient on: Condition, Plan of Care, Risk Factors, Benefits of Fitness Program For the Purpose of:: To improve self management Therapeutic Exercise to Include: Strength training, Body mechanics, Postural training, In an aquatic setting, Active ROM, Dynamic Lumbar Stabilization For the Purpose of:: To decrease pain, To increase ROM, To improve muscle performance and motor function, To increase tolerance to activity/condition/position, To improve ability of physical actions for home/community/work/leisure Please do not hesitate to contact me at [phone] by phone or if you have questions or concerns regarding this new plan of care! Sincerely, Merced Horvath <Electronically signed by Merced Horvath PT, Cert. MDT> 01/25/18 1322 CC: Shannan Mcgrath MD; Naima Strange NP ADE Signed For Medicare only, by signing this I certify the plan of care. Physicians Signature Date 12 LEAD ELECTROCARDIOGRAM Observed: 01/17/2018 Status: F Source: [place] 2:54 PM [facility] [place] [facility] Cardiovascular Services [address] [place] [address] 12 Lead EKG 01/13/18 0532 MR#: [id number] Acct: [id number] Name: AILYN MÉNDEZ Rep #: [id number] : 1960 57 From: Thai Wolf MD Attending Dr: Shiva Chandler DO Status: DIS RUPINDER Ordering Dr: Thai Wolf MD Date: 01/13/18 Location: ICU Sex: F C Admitted: 01/11/18 Test Reason : AM EKG Blood Pressure : / mmHG Vent. Rate : 067 BPM Atrial Rate : 067 BPM P-R Int : 172 ms QRS Dur : 092 ms QT Int : 418 ms P-R-T Axes : 030 -18 147 degrees QTc Int : 441 ms Normal sinus rhythm Left ventricular hypertrophy with repolarization abnormality Abnormal ECG When compared with ECG of 12-JAN-2018 15:13, MANUAL COMPARISON REQUIRED, DATA IS UNCONFIRMED Confirmed by THAI WOLF ([id number]), online content editor KATHERIN HULL ([id number]) on 01/17/2018 2:54:16 PM Referred By: TAYLOR Confirmed By:THAI WOLF 01/17/18 1454 Date Thai Wolf MD CC: Thai Wolf MD; Shannan Mcgrath MD; Shiva Chandler DO Signed 12 LEAD ELECTROCARDIOGRAM Observed: 01/13/2018 Status: F Source: [place] 4:13 PM [facility] REPOSIT[facility] Cardiovascular Services [address] [place] [address] 12 Lead EKG 01/12/18 1028 MR#: [id number] Acct: [id number] Name: AILYN MÉNDEZ Rep #: [id number] : 1960 57 From: Fish Stone MD Attending Dr: Shiva Chandler DO Status: DIS RUPINDER Ordering Dr: Thai Wolf MD Date: 01/12/18 Location: ICU Sex: F C Admitted: 01/11/18 Test Reason : POST PCI Blood Pressure : / mmHG Vent. Rate : 060 BPM Atrial Rate : 060 BPM P-R Int : 168 ms QRS Dur : 084 ms QT Int : 428 ms P-R-T Axes : 049 -19 159 degrees QTc Int : 428 ms Normal sinus rhythm ST AND T wave abnormality, consider anterolateral ischemia Abnormal ECG When compared with ECG of 12-JAN-2018 04:52, MANUAL COMPARISON REQUIRED, DATA IS UNCONFIRMED Confirmed by LYNSEY DOMINGUEZ, FISH ([id number]), online content editor KATHERIN HULL ([id number]) on 01/13/2018 4:13:36 PM Referred By: MARYANN Confirmed By:FISH STONE MD 01/13/18 1613 Date Fish Stone MD CC: Thai Wolf MD; Shannan Mcgrath MD; Shiva Chandler DO Signed 12 LEAD ELECTROCARDIOGRAM Observed: 01/13/2018 Status: F Source: [place] 3:56 PM [facility] REPOSITORY [facility] Cardi[facility] [address] [place] [address] 12 Lead EKG 01/11/18 1916 MR#: [id number] Acct: [id number] Name: AILYN MÉNDEZ Rep #: [id number] : 1960 57 From: Fish Stone MD Attending Dr: Shiva Chandler DO Status: DIS RUPINDER Ordering Dr: Valentine Carreno Date: 01/11/18 Location: ICU Sex: F C Admitted: 01/11/18 Test Reason : CP Blood Pressure : / mmHG Vent. Rate : 097 BPM Atrial Rate : 097 BPM P-R Int : 152 ms QRS Dur : 082 ms QT Int : 378 ms P-R-T Axes : 058 -17 078 degrees QTc Int : 480 ms Normal sinus rhythm Possible Left atrial enlargement Nonspecific ST and T wave abnormality Prolonged QT Abnormal ECG When compared with ECG of 11-JAN-2018 17:17, MANUAL COMPARISON REQUIRED, DATA IS UNCONFIRMED Confirmed by FISH STONE MD ([id number]), online content editor KATHERIN HULL ([id number]) on 01/13/2018 3:56:14 PM Referred By: Confirmed By:FISH STONE MD 01/13/18 1556 Date Fish Stone MD CC: Valentine Carreno; Shannan Mcgrath MD; Shiva Chandler DO Signed 12 LEAD ELECTROCARDIOGRAM Observed: 01/13/2018 Status: F Source: [place] 3:56 PM [facility] [place] [facility] Cardiovascular Services [address] [place] [address] 12 Lead EKG 01/11/18 1717 MR#: [id number] Acct: [id number] Name: AILYN MÉNDEZ Rep #: [id number] : 1960 57 From: Fish Stone MD Attending Dr: Shiva Chandler DO Status: DIS RUPINDER Ordering Dr: Valentine Carreno Date: 01/11/18 Location: ICU Sex: F C Admitted: 01/11/18 Test Reason : CPADMIT Blood Pressure : / mmHG Vent. Rate : 078 BPM Atrial Rate : 078 BPM P-R Int : 162 ms QRS Dur : 088 ms QT Int : 386 ms P-R-T Axes : 043 -23 153 degrees QTc Int : 440 ms Normal sinus rhythm ST AND T wave abnormality, consider inferior ischemia ST AND T wave abnormality, consider anterolateral ischemia Abnormal ECG When compared with ECG of 11-JAN-2018 13:41, MANUAL COMPARISON REQUIRED, DATA IS UNCONFIRMED Confirmed by FISH STONE MD ([id number]), online content editor KATHERIN HULL ([id number]) on 01/13/2018 3:56:27 PM Referred By: EV Confirmed By:FISH STONE MD 01/13/18 1556 Date Fish Stone MD CC: Valentine Carreno; Shannan Mcgrath MD; Shiva Chandler DO Signed 12 LEAD ELECTROCARDIOGRAM Observed: 01/13/2018 Status: F Source: [place] 3:55 PM [facility] Cardiovascular Services [address] [place] [address] 12 Lead EKG 01/12/18 0452 MR#: [id number] Acct: [id number] Name: AILYN MÉNDEZ Rep #: [id number] : 1960 57 From: Fish Stone MD Attending Dr: Shiva Chandler DO Status: DIS RUPINDER Ordering Dr: Valentine Carreno Date: 01/12/18 Location: ICU Sex: F C Admitted: 01/11/18 Test Reason : AM Blood Pressure : / mmHG Vent. Rate : 064 BPM Atrial Rate : 064 BPM P-R Int : 160 ms QRS Dur : 090 ms QT Int : 418 ms P-R-T Axes : 012 -17 145 degrees QTc Int : 431 [address] Normal sinus rhythm [address] AND T wave abnormality, consider anterolateral ischemia Abnormal ECG When compared with ECG of 11-JAN-2018 19:16, MANUAL COMPARISON REQUIRED, DATA IS UNCONFIRMED Confirmed by FISH STONE MD ([id number]), online content editor KATHERIN HULL ([id number]) on 01/13/2018 3:55:43 PM Referred By: EV Confirmed By:FISH STONE MD 01/13/18 1555 Date Fish Stone MD CC: Valentine Carreno; Shannan Mcgrath MD; Shiva Chandler DO Signed 12 LEAD ELECTROCARDIOGRAM Observed: 01/13/2018 Status: F Source: [place] 3:23 PM [facility] Cardiovascular Services [address] [place] [address] 12 Lead EKG 01/11/18 1341 MR#: [id number] Acct: [id number] Name: AILYN MÉNDEZ Rep #: [id number] : 1960 57 From: Fish Stone MD Attending Dr: Shiva Chandler DO Status: DIS RUPINDER Ordering Dr: Manjeet Carter MD Date: 01/11/18 Location: ICU Sex: F C Admitted: 01/11/18 Test Reason : CP Blood Pressure : / mmHG Vent. Rate : 084 BPM Atrial Rate : 084 BPM P-R Int : 152 ms QRS Dur : 086 ms QT Int : 368 ms P-R-T Axes : 013 -25 146 degrees QTc Int : 434 ms Normal sinus rhythm ST AND T wave abnormality, consider anterolateral ischemia Abnormal ECG Confirmed by FISH STONE MD ([id number]), online content editor KATHERIN HULL ([id number]) on 01/13/2018 3:23:32 PM Referred By: CHRISTINA Confirmed By:FISH STONE MD 01/13/18 1523 Date Fish Stone MD CC: Shannan Mcgrath MD; Shiva Chandler DO; Manjeet Carter MD Signed DISCHARGE SUMMARY Observed: 01/13/2018 Status: F Source: [place] 9:37 AM [facility] Medical Records Department [address] [place] [address] Discharge Summary 01/13/18 0933 MR#: [id number] Acct: [id number] Name: AILYN MÉNDEZ Rep #: [id number] : 1960 57 From: Shiva Chandler DO PCP: Shannan Mcgrath MD Status: ADM RUPINDER Y Location: ICU [place] [address] Discharge Date and Diagnosis - Problem List Patient Problems: Active and Suspected Problems (Last Reviewed 01/04/18 @ 10:06 by DERIC Cabrera) Unstable angina (Acute) Date of Admission: 01/11/18 Date of Discharge: 01/13/18 - Primary Discharge Diagnosis Active and Suspected Problems (Last Reviewed 01/04/18 @ 10:06 by DERIC Cabrera) Unstable angina (Acute) - Secondary Discharge Diagnosis Chronic Problems (Last Reviewed 01/04/18 @ 10:06 by DERIC Cabrera) Thyroid mass (Chronic) Right thyroid nodule (Chronic) 1.4 centimeter right sided nodule on CT scan Multiple falls (Chronic) Shortness of breath (Chronic) Syncope (Chronic) Vertigo (Chronic) Chronic renal insufficiency (Chronic) Sleep apnea (Chronic) Menieres disease (Chronic) Ulcerative colitis (Chronic) Ileostomy status (Chronic) Surgical wound dehiscence (Chronic) CAD (coronary artery disease) (Chronic) Hyperlipidemia (Chronic) Continues on statin without side effect. Reports taking as directed. No recent labs noted. Diarrhea (Chronic) Anemia of chronic renal failure, stage 3 (moderate) (Chronic) Obstructive sleep apnea (Chronic) Psoriasis (Chronic) Heart failure with preserved ejection fraction (Chronic) Benign essential HTN (Chronic) Depression (Chronic) DM2 (diabetes mellitus, type 2) (Chronic) FCHL (familial combined hyperlipidemia) (Chronic) Ulcerative colitis (Chronic) Status post ileostomy Hx of coronary artery disease (Chronic) Status post CABG, failed, status post multiple stents. Pulmonary hypertension (Chronic) History of coronary artery stent placement (Chronic 2012) Mid LAD and Cx 2012, D1 and prox OM1 2012, Prox SVG, Distal SVG to the Mid OM 2012 S/P CABG (coronary artery bypass graft) (Chronic 2012) JONES to LAD, SVG diag, SVG to OM, SVG to left PDA Chronic respiratory failure (Chronic) COPD (chronic obstructive pulmonary disease) (Chronic) Hospital Course and Treatment Imaging Results: Clinical Impression(s) from Imaging Studies Chest X-Ray 01/11/18 14:49 IMPRESSION: Normal x-ray examination of the chest. Electronically Signed: Eric Spencer MD at 15:26 EST Tel [phone], Service support , Fish Stone MD; Thai Wolf MD--cardiology Operations: None Procedures: Cardiac catheterization Summary of Care Provided: The patient is a 57 year old F presents with crushing chest pain. Is a known patient with known coronary artery disease. Patient had serial troponins given her symptomatology, cardiology was consulted. He underwent a left heart catheterization on the seventh and went percutaneous coronary intervention with a drug-eluting stents to the mid diagonal artery. Patient tolerated procedure well and had no sequelae afterwards. Patient will be discharged today with instructions to continue with dual antiplatelet therapy and been impressed upon her several times to take Plavix daily so as to prevent in-stent thrombosis. Patient was continue with high intensity statin with atorvastatin 80 mg. Patient will continue aspirin as well. [] Patient Problems: Active and Suspected Problems (Last Reviewed 01/04/18 @ 10:06 by Hollie Fulton NP-C) Unstable angina (Acute) - Physical Exam General: Alert, Cooperative, No apparent distress HEENT: Atraumatic, Normocephalic Oral: Moist Mucosa, No Gingival or Mucosal Lesions/ Ulcerations Neck: No Nodes, Thyroid Normal Size and Texture Lungs: Clear to auscultation, Normal air movement, No rhonchi, No wheeze Cardiovascular: Regular rate, Regular Rhythm, Normal S1, Normal S2, No murmurs Abdomen: Bowel Sounds Present, Soft, Non Tender, Non-Distended, No Hepato-splenomegaly Extremities: No edema, No Calf Tenderness Vital Signs Temp Pulse Resp BP Pulse Ox 37.1 C 81 12 130/56 H 100 01/13/18 00:00 01/13/18 08:00 01/13/18 07:00 01/13/18 07:00 01/13/18 07:00 Oxygen Flow Rate (L/min) 2 Oxygen Delivery Method Room Air Weight: 89.5 kg Body Mass Index (BMI) 30.9 Finger Stick Blood Glucose 348 Intake and Output for Last 24 Hours Intake Total 240 / 240 2029 / 2029 175 / 175 Output Total 2150 / 2150 Balance 240 / 240 -120 / -120 175 / 175 Laboratory Tests Past 24 Hrs WBC 5.1 RBC 4.40 Hgb 12.4 Hct 37.9 MCV 86.1 MCH 28.2 WBC RBC POC Glucose POC Glucose 224 H 252 H 145 H POC Glucose 217 H Discharge Diet: Low fat/ Low Cholesterol Discharge Activity: Return to Normal Activity Keep extremity elevated above heart level: Right Leg Call your doctor if your incision/area has: Continuous Slow Oozing, Sudden Increased Bleeding, Increased Pain/ Swelling Call your doctor if you observe: Shortness of breath, Chest pain Home Medications: Medications to take at Discharge Ondansetron HCl [Zofran] 4 mg PO Q8H PRN PRN #20 tab 09/05/16 Baclofen 10 mg PO QHS 11/24/16 loperamide 2 mg tablet 2 mg PO 4X/DAY PRN PRN tab 02/12/17 insulin aspart U- 100 100 unit/mL subcutaneous pen See Protocol SC TIDCM ml 03/23/17 miconazole nitrate 2 % topical powder 1 applic TOPICAL DAILY 03/23/17 tramadol 50 mg tablet 50 mg PO BID PRN PRN tab 05/05/17 Hydrocortisone 1 applic TOPICAL BID 06/02/17 nitroglycerin 0.4 mg sublingual tablet 0.4 mg SUBLINGUAL Q5M PRN #25 tab 06/08/17 Furosemide [Lasix] 40 mg PO DAILY 07/07/17 insulin glargine (U-100) 100 unit/mL (3 mL) subcutaneous pen 80 units SC BID ml 09/02/17 isosorbide dinitrate 30 mg tablet 30 mg PO TID #90 tab 09/21/17 magnesium oxide 400 mg (241.3 mg magnesium) tablet 400 mg PO BID #60 tab 09/21/17 metoprolol tartrate 50 mg tablet 75 mg PO BID #90 tab 09/21/17 buprenorphine 7.5 mcg/hour weekly transdermal patch 1 patch TRANSDERMAL QWEEK 10/18/17 omeprazole 20 mg capsule,delayed release 20 mg PO DAILY #90 cap 10/19/17 pregabalin 50 mg capsule 50 mg PO BID #60 cap 10/19/17 calcium carbonate 600 mg calcium (1,500 mg) tablet 600 mg PO BID #60 tab 11/30/17 cholecalciferol (vitamin D3) 2,000 unit capsule 2,000 unit PO DAILY #90 cap 11/30/17 lorazepam 0.5 mg tablet 0.5 mg PO QHS PRN #30 tab 01/10/18 Aspirin E.C. [Ecotrin] 81 mg PO DAILY 01/11/18 Insulin Aspart [Novolog Flexpen] 22 units SQ TIDCM 01/11/18 Venlafaxine HCl [Effexor Xr] 150 mg PO DAILY 01/11/18 Atorvastatin Calcium [Lipitor] 80 mg PO QHS #30 tab 01/13/18 Clopidogrel Bisulfate [Plavix] 75 mg PO DAILY #30 tab 01/13/18 Following Prescrptions Were Given to Patient: Atorvastatin Calcium [Lipitor] 80 mg PO QHS #30 tab Clopidogrel Bisulfate [Plavix] 75 mg PO DAILY #30 tab Primary Care Physician: Shannan Mcgrath MD [Primary Care Provider] - Within 2 Weeks Please Follow Up With: Fish Stone MD When: 2-4 weeks Patient Instructions: ED Chest Pain NonCardiac Disposition: Home Minutes spent on discharge:: 32 Patient Condition:: Good Medical Necessity - Tobacco Use Smoking Status: Former smoker Tobacco Use: Non-smoker Meaningful Use Info Meaningful Use Diagnoses (Choose all that apply): None applicable Code Visit Inpatient E AND M: 81670 Disch Hosp 01/13/18 0937 <Electronically signed by Shiva Chandler DO> Date Shiva Chandler DO Cosigner Signature (if applicable): Date CC: Shannan Mcgrath MD; hSiva Chandler DO Signed DISCHARGE INSTRUCTION Observed: 01/13/2018 Status: F Source: [place] 9:33 AM [facility] Medical Records Department [address] [place] [address] Instructions for Home/Discharge Instructions 01/13/18927 MR#: [id number] Acct: [id number] Name: AILYN MÉNDEZ Rep #: [id number] : 1960 57 From: Shiva Chandler DO PCP: Shannan Mcgrath MD Status: ADM RUPINDER You will use the following diet at home:: Cardiac Your food should be the consistency of: Regular Your liquids should be the consistency of: Regular/Thin Discharge Activity: Return to Normal Activity Keep extremity elevated above heart level: Right Leg Call your doctor if your incision/area has: Continuous Slow Oozing, Sudden Increased Bleeding, Increased Pain/ Swelling Call your doctor if you observe: Shortness of breath, Chest pain Instructions: ED Chest Pain NonCardiac Allergies/Adverse Reactions: Allergies cinnamon [Cinnamon] Allergy (Verified 01/11/18 14:00) Anaphylaxis Influenza Virus Vaccines Allergy (Verified 01/11/18 14:00) Shortness of breath liraglutide [From Victoza] Allergy (Verified 01/11/18 14:00) Anaphylaxis metronidazole [From Flagyl] Allergy (Verified 01/11/18 14:00) Hives Metronidazole HCl [From Flagyl] Allergy (Verified 01/11/18 14:00) Hives Penicillins Allergy (Verified 01/11/18 14:00) Hives Sulfa (Sulfonamide Antibiotics) Allergy (Verified 01/11/18 14:00) Hives ciprofloxacin [From Cipro] Adverse Reaction (Verified 01/11/18 14:00) Nausea codeine Adverse Reaction (Verified 01/11/18 14:00) Stops Ileostomy dicyclomine HCl [From Bentyl] Adverse Reaction (Verified 01/11/18 14:00) Nausea metformin HCl [From Glucophage] Adverse Reaction (Verified 01/11/18 14:00) Nausea Rgypshn-Hsy-Pda Reductase Inhibitor Adverse Reaction (Verified 01/11/18 14:00) Nausea/joints ache Medications to take at Discharge Ondansetron HCl [Zofran] 4 mg PO Q8H PRN PRN #20 tab 09/05/16 Baclofen 10 mg PO QHS 11/24/16 loperamide 2 mg tablet 2 mg PO 4X/DAY PRN PRN tab 02/12/17 insulin aspart U- 100 100 unit/mL subcutaneous pen See Protocol SC TIDCM ml 03/23/17 miconazole nitrate 2 % topical powder 1 applic TOPICAL DAILY 03/23/17 tramadol 50 mg tablet 50 mg PO BID PRN PRN tab 05/05/17 Hydrocortisone 1 applic TOPICAL BID 06/02/17 nitroglycerin 0.4 mg sublingual tablet 0.4 mg SUBLINGUAL Q5M PRN #25 tab 06/08/17 Furosemide [Lasix] 40 mg PO DAILY 07/07/17 insulin glargine (U-100) 100 unit/mL (3 mL) subcutaneous pen 80 units SC BID ml 09/02/17 isosorbide dinitrate 30 mg tablet 30 mg PO TID #90 tab 09/21/17 magnesium oxide 400 mg (241.3 mg magnesium) tablet 400 mg PO BID #60 tab 09/21/17 metoprolol tartrate 50 mg tablet 75 mg PO BID #90 tab 09/21/17 buprenorphine 7.5 mcg/hour weekly transdermal patch 1 patch TRANSDERMAL QWEEK 10/18/17 omeprazole 20 mg capsule,delayed release 20 mg PO DAILY #90 cap 10/19/17 pregabalin 50 mg capsule 50 mg PO BID #60 cap 10/19/17 calcium carbonate 600 mg calcium (1,500 mg) tablet 600 mg PO BID #60 tab 11/30/17 cholecalciferol (vitamin D3) 2,000 unit capsule 2,000 unit PO DAILY #90 cap 11/30/17 lorazepam 0.5 mg tablet 0.5 mg PO QHS PRN #30 tab 01/10/18 Aspirin E.C. [Ecotrin] 81 mg PO DAILY 01/11/18 Insulin Aspart [Novolog Flexpen] 22 units SQ TIDCM 01/11/18 Venlafaxine HCl [Effexor Xr] 150 mg PO DAILY 01/11/18 Atorvastatin Calcium [Lipitor] 80 mg PO QHS #30 tab 01/13/18 Clopidogrel Bisulfate [Plavix] 75 mg PO DAILY #30 tab 01/13/18 The following prescriptions were given: Atorvastatin Calcium [Lipitor] 80 mg PO QHS #30 tab Clopidogrel Bisulfate [Plavix] 75 mg PO DAILY #30 tab Primary Care Physician: Shannan Mcgrath MD [Primary Care Provider] - Within 2 Weeks Test Results: Test results from this visit will be discussed in further detail at your follow-up appointment, if applicable. Please Follow Up With: Fish Stone MD When: 2-4 weeks Proposed Discharge Date: 01/13/18 Cardiac Rehab Referral Please Follow Up with Cardiac Rehabilitation:: 2 Weeks Cardiac Rehabilitation was informed of this Referral:: No 01/13/18 0933 <Electronically signed by Shiva Chandler DO> Date Shiva Chandler DO CC: Thai Wolf MD; Shannan Mcgrath MD BEDSIDE GLUCOSE Collected: 01/13/2018 Status: F Source: [place] 6:29 AM [facility] TYPE CODE TESTS RESULT OUT OF REFERENCE UNITS RANGE LAB L501.080 70-110 mg/dL High BEDSIDE GLU 224 Result Comment: MANAGEMENT OF PATIENT CARE PER NURSING PROTOCOL Performed By: #### L501.080 #### [facility] Point of Care [address] [place] [address] CBC-COMPLETE BLOOD CNT Collected: 01/13/2018 Status: F Source: [place] NO DIFF 4:25 AM [facility] TYPE CODE TESTS RESULT OUT OF RANGE REFERENCE UNITS LAB L100.1000 4.4-11.0 K/mm3 Normal WBC 5.1 LAB L100.1200 4.2-5.4 M/mm3 Normal RBC 4.40 LAB L100.1300 12.0-15.0 g/dl Normal HGB 12.4 LAB L100.1400 37-47 % Normal HCT 37.9 LAB L100.1500 81-99 fL Normal MCV 86.1 LAB L100.1600 27.0-32.0 pg Normal MCH 28.2 LAB L100.1700 32-36 g/gl Normal MCHC 32.7 LAB L100.1810 11.6-14.6 % High RDW CV 15.8 LAB L100.1820 35.1-43.9 fl High RDW SD 48.6 LAB L100.1900 150-450 K/mm3 Normal PLT 160 LAB L100.2000 6.2-12.0 fl High MPV 12.2 Performed By: #### L100.0500 #### [facility] [address] [place], [address] BASIC METABOLIC Collected: 01/13/2018 Status: F Source: [place] PROFILE (BMP) 4:25 AM [facility] TYPE CODE TESTS RESULT OUT OF RANGE REFERENCE UNITS LAB L501.0100 74-106 mg/dL High GLU 232 Result Comment: Glucose result greater than or equal to 200 mg/dL suggests DIABETES MELLITUS per A.D.A. criteria. Please note revised GLUCOSE reference range effective 2017. LAB L501.1000 7-18 mg/dL Normal BUN 16 LAB L501.1100 0.55-1.02 mg/dL High CREAT,SERUM 1.18 Result Comment: The validity of the calculated GFR AND GFRAA in patients over 70 years has not been determined. Clinical correlation is essential. LAB L501.1110 >60 mL/min Low EST GFR 50 Result Comment: Non- GFR Calc LAB L501.1115 >60 mL/min Normal EST GFR - AA 60 Result Comment: GFR Calc LAB L501.1255 ml/min Normal Estimated CRCL 49.92 LAB L501.1300 10-20 RATIO Normal BUN/CRE 13.6 LAB L501.2200 8.5-10 mg/dL Normal .1 CA 8.7 LAB L501.5300 136-14 mmol/L Normal 5 NA 137 LAB L501.5600 3.5-5. mmol/L Normal 1 K 4.2 Result Comment: Slight Hemolysis, Result may be falsely increased. LAB L501.5900 98-107 mmol/L Normal CL 100 LAB L501.6100 21.0-32.0 mmol/L Normal CO2 26.0 LAB L501.6200 5-15 Normal GAP 11 Performed By: #### L500.2500, L501.5200 #### [facility] [address] [place], [place], [address] MAGNESIUM Collected: 01/13/2018 Status: F Source: [place] 4:25 AM [facility] TYPE CODE TESTS RESULT OUT OF RANGE REFERENCE UNITS LAB L501.5200 1.6-2.6 mg/dL Normal MG 1.9 Result Comment: Slight Hemolysis, Result may be falsely increased. Performed By: #### L500.2500, L501.5200 #### [facility] [address] [place], [address] BEDSIDE GLUCOSE Collected: 01/12/2018 Status: F Source: [place] 9:21 PM [facility] TYPE CODE TESTS RESULT OUT OF REFERENCE UNITS RANGE LAB L501.080 70-110 mg/dL High BEDSIDE GLU 252 Result Comment: MANAGEMENT OF PATIENT CARE PER NURSING PROTOCOL Performed By: #### L501.080 #### [facility] Point of Care [address] [place] [address] BEDSIDE GLUCOSE Collected: 01/12/2018 Status: F Source: [place] 5:32 PM [facility] TYPE CODE TESTS RESULT OUT OF REFERENCE UNITS RANGE LAB L501.080 70-110 mg/dL High BEDSIDE GLU 145 Result Comment: MANAGEMENT OF PATIENT CARE PER NURSING PROTOCOL Performed By: #### L501.080 #### [facility] Point of Care [address] [place] [address] ACT ACTIVATED CLOTTING Collected: 01/12/2018 Status: F Source: [place] TIME 12:25 PM [facility] TYPE CODE TESTS RESULT OUT OF RANGE REFERENCE UNITS LAB L9100.0100 74-137 sec High ACTk CLOT 142 TIME Performed By: #### L9100.0100 #### [facility] Point of Care [address] [place] [address] BEDSIDE GLUCOSE Collected: 01/12/2018 Status: F Source: [place] 12:20 PM [facility] TYPE CODE TESTS RESULT OUT OF REFERENCE UNITS RANGE LAB L501.080 70-110 mg/dL High BEDSIDE GLU 217 Result Comment: MANAGEMENT OF PATIENT CARE PER NURSING PROTOCOL Performed By: #### L501.080 #### [facility] Point of Care [address] [place] [address] ACT ACTIVATED CLOTTING Collected: 01/12/2018 Status: F Source: [place] TIME 9:59 AM [facility] TYPE CODE TESTS RESULT OUT OF RANGE REFERENCE UNITS LAB L9100.0100 74-137 sec High ACTk CLOT 186 TIME Performed By: #### L9100.0100 #### [facility] Point of Care [address] [place], [place] [address] BEDSIDE GLUCOSE Collected: 01/12/2018 Status: F Source: [place] 6:58 AM [facility] TYPE CODE TESTS RESULT OUT OF REFERENCE UNITS RANGE LAB L501.080 70-110 mg/dL High BEDSIDE GLU 235 Result Comment: MANAGEMENT OF PATIENT CARE PER NURSING PROTOCOL Performed By: #### L501.080 #### [facility] Point of Care [address] [place] [address] CBC-COMPLETE BLOOD CNT Collected: 01/12/2018 Status: F Source: [place] NO DIFF 6:00 AM [facility] TYPE CODE TESTS RESULT OUT OF RANGE REFERENCE UNITS LAB L100.1000 4.4-11.0 K/mm3 Normal WBC 5.8 LAB L100.1200 4.2-5.4 M/mm3 Normal RBC 4.39 LAB L100.1300 12.0-15.0 g/dl Normal HGB 12.4 LAB L100.1400 37-47 % Normal HCT 38.0 LAB L100.1500 81-99 fL Normal MCV 86.6 LAB L100.1600 27.0-32.0 pg Normal MCH 28.2 LAB L100.1700 32-36 g/gl Normal MCHC 32.6 LAB L100.1810 11.6-14.6 % High RDW CV 16.0 LAB L100.1820 35.1-43.9 fl High RDW SD 49.6 LAB L100.1900 150-450 K/mm3 Normal PLT 159 LAB L100.2000 6.2-12.0 fl High MPV 12.7 Performed By: #### L100.0500 #### [facility] [address] [place], [place], [address] BASIC METABOLIC Collected: 01/12/2018 Status: F Source: [place] PROFILE (BMP) 6:00 AM [facility] TYPE CODE TESTS RESULT OUT OF RANGE REFERENCE UNITS LAB L501.0100 74-106 mg/dL High GLU 223 Result Comment: Glucose result greater than or equal to 200 mg/dL suggests DIABETES MELLITUS per A.D.A. criteria. Please note revised GLUCOSE reference range effective 2017. LAB L501.1000 7-18 mg/dL High BUN 20 LAB L501.1100 0.55-1.02 mg/dL High CREAT,SERUM 1.26 Result Comment: The validity of the calculated GFR AND GFRAA in patients over 70 years has not been determined. Clinical correlation is essential. LAB L501.1110 >60 mL/min Low EST GFR 46 Result Comment: Non- GFR Calc LAB L501.1115 >60 mL/min Low EST GFR - AA 56 Result Comment: GFR Calc LAB L501.1255 ml/min Normal Estimated CRCL 46.75 LAB L501.1300 10-20 RATIO Normal BUN/CRE 15.9 LAB L501.2200 8.5-10 mg/dL Normal .1 CA 8.9 LAB L501.5300 136-14 mmol/L Normal 5 NA 139 LAB L501.5600 3.5-5. mmol/L Normal 1 K 4.3 LAB L501.5900 98-107 mmol/L Normal CL 104 LAB L501.6100 21.0-3 mmol/L Normal 2.0 CO2 23.0 LAB L501.6200 5-15 Normal GAP 12 Performed By: #### L500.2500, L500.4100 #### [facility] [address] [place], [address] LIPID PROFILE Collected: 01/12/2018 Status: F Source: [place] 6:00 AM [facility] TYPE CODE TESTS RESULT OUT OF RANGE REFERENCE UNITS LAB L501.4900 200 mg/dL High CHOL 249 Result Comment: <200 mg/dL Desirable 200-240 mg/dL Borderline >240 mg/dL High Risk LAB L501.5000 mg/dL High TRIG 1141 Result Comment: The drugs N-Acetylcysteine and Metamizole may falsely depress this assay. Serum Triglycerides Reference Interval Normal <150 mg/dL Borderline high 150 - 199 mg/dL High 200 - 499 mg/dL Very High > or = 500 mg/dL LAB L501.6400 mg/dL Low HDL 33 Result Comment: The drugs N-Acetylcysteine and Metamizole may falsely depress this assay. Reference Range HDL <40 mg/dL Low HDL Cholesterol HDL >or= 60 mg/dL High HDL Cholesterol LAB L501.6500 0-130 mg/dL Test Normal not performed LDL LAB L501.6600 5-40 mg/dL Test Normal not performed VLDL Performed By: #### L500.2500, L500.4100 #### [facility] [address] [place], [address] BEDSIDE GLUCOSE Collected: 01/11/2018 Status: F Source: [place] 9:57 PM [facility] TYPE CODE TESTS RESULT OUT OF REFERENCE UNITS RANGE LAB L501.080 70-110 mg/dL High BEDSIDE GLU 311 Result Comment: MANAGEMENT OF PATIENT CARE PER NURSING PROTOCOL Performed By: #### L501.080 #### [facility] Point of Care [address] [place] [address] TROPONIN-I Collected: 01/11/2018 Status: F Source: [place] 8:25 PM [facility] Order Comment: 'TROP' Serial specimen #1, #2 or #3: 3 TYPE CODE TESTS RESULT OUT OF RANGE REFERENCE UNITS LAB L501.4010 <0.045 ng/mL Normal < 0.015 TROPONIN-I Result Comment: TROPONIN-I EXPECTED VALUES <0.045 Negative 0.045 - 0.590 Consistent with Cardiac Damage > OR = 0.600 Critical Value Not every elevated troponin is indicative of CT. These values should be used with clinical judgement in examining the patient's clinical picture for diagnosis. To establish a diagnosis of CT versus myocardial injury, there must be a demonstrated rise and/or fall in the troponin values, in addition to ischemic symptoms, EKG changes, new regional wall motion abnormality, and/or angiographical evidence. PLEASE NOTE: REFERENCE RANGES EDITED 17 Performed By: #### L501.4010 #### [facility] [address] [place], [address] EMERGENCY DEPARTMENT Observed: 01/11/2018 Status: F Source: [place] SUMMARY 6:14 PM [facility] Medical Records Department [address] [facility] [place] [address] Emergency Department Summary 01/11/18 1453 MR#: [id number] Acct: [id number] Name: AILYN MÉNDEZ Rep #: [id number] : 1960 57 From: Manjeet Carter MD PCP: Shannan Mcgrath MD Status: ADM RUPINDER - ER Visit Summary Date of Service: 01/11/18 Chief Complaint: Chest pain History of Present Illness: The patient is a 57 F history of CAD, 9 cardiac stents, prior quadruple bypass in 2012, renal insufficiency, COPD, hypertension and type 2 diabetes. Patient is on Plavix and aspirin. She states she has not felt well for the last 2 days. States that she did lift her bed up Wednesday morning at 1:00 in the morning after collapse. And got sudden onset of chest pain with associated shortness of breath nausea and diaphoresis. Nitro has helped her pain but never totally resolved it. This is similar to her prior cardiac chest pain. Physical Examination: Middle-aged female. No acute distress. Vital signs are stable afebrile. Pulse ox 95% on room air no signs of hypoxia. HEENT exam unremarkable. Neck nontender no JVD. Lungs clear to auscultation bilaterally. Heart regular rate and rhythm no murmur rate about 80. Chest wall nontender. Abdomen soft and nontender. Normal bowel sounds. No peritoneal signs. Extremities she moves all 4. Equal symmetrical radial pulses. Normal conduit helper strength. Calves nontender without edema or cords. Dorsi plantar flexion intact. Back nontender. Neurologically she is awake and alert with no focal motor deficits. Test Results: EKG shows a sinus rhythm rate 84. With inverted T waves in V2 through V6 including lead I and aVL. No change from prior EKG from September 2017. Chest x-ray normal cardiac silhouette. Prior sternotomy. CBC unremarkable. BMP unremarkable except for creatinine 1.32. Glucose 311. Troponin is normal. Emergency Department Course and Treatment: Patient be treated with aspirin. Nitropaste. Morphine and Zofran. Treatment Plan: Patient is doing well at 15:20. I have already spoken to the hospitalist and she will be down to evaluate the patient for admission. Disposition: Admission Impression: Acute chest pain of uncertain etiology History of CAD with 9 prior cardiac stents History of diabetes This note was generated with [employer] dictation software. It may contain incorrect words, spelling, and punctuation that were not noted in review of the chart prior to signing ED Disposition - Plan for ED Patient: Chief Complaint: Chest Pain Referrals: Shannan Mcgrath MD [Primary Care Provider] - What to do if you have Problems For any increased pain, shortness of breath, bleeding, nausea or vomiting, chest pain, or any unexpected problems, contact your Primary Care Provider. Call [facility] ([phone]) or report to the closest Emergency Room. Call 911 if necessary. 01/11/18 1814 <Electronically signed by Manjeet Carter MD> Date Manjeet Carter MD Cosigner Signature (If Indicated): Date CC: Shannan Mcgrath MD BEDSIDE GLUCOSE Collected: 01/11/2018 Status: F Source: [place] 5:12 PM [facility] [place] CODE TESTS RESULT OUT OF REFERENCE UNITS RANGE LAB L501.080 70-110 mg/dL High BEDSIDE GLU 178 Result Comment: MANAGEMENT OF PATIENT CARE PER NURSING PROTOCOL Performed By: #### L501.080 #### [facility] Point of Care [address] [place], [place] [id number] HEMOGLOBIN A1C Collected: 01/11/2018 Status: F Source: [place] 5:02 PM [facility] [place] TYPE CODE TESTS RESULT OUT OF RANGE REFERENCE UNITS LAB L501.9985 4.2-6.3 % High HGB A1C 10.6 Performed By: #### L501.9985 #### [facility] [address] [place], [address] MAGNESIUM Collected: 01/11/2018 Status: F Source: [place] 5:02 PM [facility] [place] TYPE CODE TESTS RESULT OUT OF RANGE REFERENCE UNITS LAB L501.5200 1.6-2.6 mg/dL Normal MG 1.7 Performed By: #### L501.5200 #### [facility] [address] [place], [address] HISTORY AND PHYSICAL Observed: 01/11/2018 Status: F Source: [place] EXAM 4:44 PM [facility] [place] [facility] Medical Records Department [address] [place] [address] History and Physical 01/11/18 1612 MR#: [id number] Acct: [id number] Name: AILYN MÉNDEZ Rep #: [id number] : [id number] 57 From: Tomas JONES PCP: Shannan Mcgrath MD Status: ADM RUPINDER Y Location: [place] [address] ADDENDUM by Valentine Carreno on 01/11/18 at 1644 Code Visit ATTENDING PHYSICIAN NOTE: I have seen and examined the patient independently and agree with the assessment, plan, history per Tomas Sun as noted. Chief Complaint: Chest pain The patient is a 57 y/o F w/ PMHx: CAD s/p PCI x 9 secondary to failed CABG x 4 (recent negative stress testing 07/2017), Hypertension, Hyperlipidemia, Depression and Anxiety, Ulcerative Colitis s/p coloproctectomy w/ ostomy, Diabetes mellitus type II, Obesity, CKD stage III, COPD w/ chronic respiratory failure who presents to the [facility] ED on 01/11/18 with history of onset onset of severe chest discomfort starting this past Wednesday when she notes her bed fell and she attempted to lift up her bed again noted to be in the midsternal region with pressure-like sensation with additionally some very focal left-sided sharp stabbing pain as well with radiation to both shoulders as well as to her left upper extremity and left neck as well as into her back, intermittent, worse with any exertional attempts coming and going several times over the last several days but worse on day of presentation with associated dyspnea and diaphoresis. In the ED workup included EKG with chronic ST-T wave changes unchanged from prior with no acute evidence of ischemia, chest x-ray with chronic changes, troponin unremarkable x1. Patient administered sublingual nitroglycerin as well as transition to Nitropaste with administration of morphine with improvement of chest discomfort initially rated 10 out of 10, currently 2 out of 10. Labs, Allergies, Home medications, Social Hx, PSurgHx, Family Hx per note below. Admission Review of Systems: CONSTITUTIONAL: No weight loss, fever, chills, + weakness or fatigue. HEENT: Eyes: No visual loss, blurred vision, double vision or yellow sclerae. Ears, Nose, Throat: No hearing loss, sneezing, congestion, runny nose or sore throat. SKIN: No rash or itching, lesions, wounds. CARDIOVASCULAR: + chest pain, chest pressure or chest discomfort, No palpitations, edema, orthopnea, syncopal events. RESPIRATORY: + shortness of breath, No cough or sputum, wheezing, hemoptysis. GASTROINTESTINAL: No anorexia, nausea, vomiting or diarrhea, abdominal pain, melena, BRBPR. GENITOURINARY: No dysuria, frequency, urgency or retention. NEUROLOGICAL: No headache, dizziness, syncope, paralysis, ataxia, numbness or tingling in the extremities, focal weakness, change in bowel or bladder control, seizure. MUSCULOSKELETAL: + muscle, back pain, joint pain or stiffness. HEMATOLOGIC: No anemia, bleeding or bruising. LYMPHATICS: No enlarged nodes. No history of splenectomy. PSYCHIATRIC: + history of depression or anxiety. ENDOCRINOLOGIC: No reports of sweating, cold or heat intolerance. No polyuria or polydipsia. ALLERGIES: No history of asthma, hives, eczema or rhinitis. Admission VS: As noted below. Physical Examination: General: awake, alert, oriented x 3 and cooperative, seated upright in the ED bed, notes chest pain improved. Skin: normal color, turgor, no icterus, cyanosis. HEENT: AT/NC, EOMI, PERRLA, MMM, no carotid bruits or JVD noted. Lungs: Diminished BS BL, > bases, moderate effort, no rales, ronchi or wheezing. Heart: Regular rate and rhythm; no gallop, rub audible, reproducible midsternal intracostal pain w/ palpation, SM. Abdomen: soft, obese, NTTP, ND, normal BS, no HSM. Extremities: no cyanosis, clubbing, or edema. Neurological: patient awake, alert, oriented x 3; cognitive function intact; pupils equally reactive to light and accomodation; cranial nerves II-XII grossly normal, moving all 4 extremities, no focal deficits, strength moderately to severely globally decreased secondary to acute presentation. Psychiatric: affect appears normal, no acute evidence of depressive or anxiety feelings. Assessment and Plan: The patient is a 57 y/o F w/ PMHx: CAD s/p PCI x 9 secondary to failed CABG x 4, Hypertension, Hyperlipidemia, Depression and Anxiety, Ulcerative Colitis s/p coloproctectomy w/ ostomy, Diabetes mellitus type II, Obesity, CKD stage III, COPD w/ chronic respiratory failure who presents to the [facility] ED on 01/11/18 with history of onset onset of severe chest discomfort starting several days prior. (1) Chest Pain: EKG in ED with no acute findings w/ chronic ST-T wave changes, CXR w/ no acute findings, initial trop normal x 1. Will admit to PCU, place on a monitored bed to assure no acute myocardial infarction with serial cardiac enzymes and EKGs. Patient had recent stress testing 07/2017 which was negative for inducible ischemia. Reviewed w/ Dr. Stone with whom she follows and given her serial chest pain presentations w/ negative stress testing will continue to monitor and if enzymes remain unremarkable he recommended discharge to home, if notable would plan to consult Dr. Stone. ASA, NG, morphine. Additional Co-morbidities: (2) History of Abdominal Wall Infected Suture Granuloma, s/p Debridement w/ Possible Drainage: Notes recurrent drainage from prior closed R abdominal region, outpatient US performed per PCP and reviewed w/ unremarkable or concerning findings, CBC without concerning findings, if recurrent drainage will culture. (3) CAD: s/p PCI x 9 secondary to failed CABG x 4, recent 07/2017 stress testing which was unremarkable, frequent presentations for chest pain, maintain on asa, plavix, statin, BB. (4) Diabetes mellitus type II w/ Hyperglycemia: Patient notes recently increased BS, states compliant with medications and diet, last HgbA1c 10/2017 8.4%, will repeat HgbA1c, nutrition consulted for education and teaching, continue home levemir, TID scheduled novolog plus ISS to overlap, ADA diet 1800, accu checks. (5) Hypertension: Continue home regimen including metoprolol, isosorbide, lasix, PRN hydralazine. Hold parameters placed. Previously she had been on ACEI, not currently. (6) Hyperlipidemia: Continue home statin regimen. FLP in AM. (7) Chronic COPD w/ Chronic Hypoxic Respiratory Failure: ATC duonebs, PRN albuterol, HOB, IS parameters. (8) Depression/Anxiety: Maintain on home ativan and effexor regimen. (9) Chronic pain syndrome: Maintain on baclofen, effexor, buprenorphine. (10) Obesity: Weight loss and lifestyle changes encouraged. (11) CKD stage III: Admission BUN/Cr 20/1.32, baseline Cr 1.2-1.5, stable, trend. (12) DVT prophylaxis: SCDs, heparin. OBSV E AND M: [id number] Initial observation care L3 01/11/18 1644 <Electronically signed by Valentine Carreno > Date Valentine Carreno cc: ROBERT Sun; Valentine Carreno; Shannan Mcgrath MD * Signed Problem List (1) CAD (coronary artery disease) Status: Acute (2) Chronic renal insufficiency Status: Chronic Qualifiers: (3) Sleep apnea Status: Chronic (4) Menieres disease Status: Chronic (5) Ulcerative colitis Status: Chronic (6) Ileostomy status Status: Chronic (7) Hyperlipidemia Status: Chronic Qualifiers: Comment: Continues on statin without side effect. Reports taking as directed. No recent labs noted. (8) Heart failure with preserved ejection fraction Status: Chronic (9) Benign essential HTN Status: Chronic (10) DM2 (diabetes mellitus, type 2) Status: Chronic Qualifiers: (11) FCHL (familial combined hyperlipidemia) Status: Chronic (12) Pulmonary hypertension Status: Chronic (13) History of coronary artery stent placement Status: Chronic Comment: Mid LAD and Cx 2012, D1 and prox OM1 2012, Prox SVG, Distal SVG to the Mid OM 2012 (14) S/P CABG (coronary artery bypass graft) Status: Chronic Comment: JONES to LAD, SVG diag, SVG to OM, SVG to left PDA (15) COPD (chronic obstructive pulmonary disease) Status: Chronic History of Present Illness Date of Admission: 01/11/18 Chief Complaint: chest pain The patient is a 57 year old F with a pmhx of CAD with prior CABG x4, stents x9, patient of dr. Stone, HLD, HTN, obesity, DMt2, CKDIII, UC with colectomy, ANKITA, who presented to the ER with c/o Chest pain. She states this began at about 1 am on Wednesday. She states he bed fell down and she needed to lift it back up. As she lifted it she developed chest pain in two locations. One was midsternal. She described this as severe crushing pain. She also had somewhat left sided pain described as sharp stabbing pain. She decided to try to sleep it off. The next two days she spent most of the day in bed and it felt like the pain was improving. Today she tried to be more active and the pain came back and was more severe. She states it was radiating into the left arm and in between the shoulder blades. She states today and the first day she broke out into a sweat and became severely Short of breath. She has no fever or chills. No dizziness or LH. She had a stress test in july 2017 which was negative, last cath was 2015. [] Past Medical History Past Medical History (Chronic Problems): Chronic Problems (Last Reviewed 01/04/18 @ 10:06 by DERIC Cabrera) Multiple falls (Chronic) Shortness of breath (Chronic) Syncope (Chronic) Vertigo (Chronic) Chronic renal insufficiency (Chronic) Sleep apnea (Chronic) Menieres disease (Chronic) Ulcerative colitis (Chronic) Ileostomy status (Chronic) Surgical wound dehiscence (Chronic) Hyperlipidemia (Chronic) Continues on statin without side effect. Reports taking as directed. No recent labs noted. Diarrhea (Chronic) Anemia of chronic renal failure, stage 3 (moderate) (Chronic) Obstructive sleep apnea (Chronic) Psoriasis (Chronic) Heart failure with preserved ejection fraction (Chronic) Benign essential HTN (Chronic) Depression (Chronic) DM2 (diabetes mellitus, type 2) (Chronic) FCHL (familial combined hyperlipidemia) (Chronic) Ulcerative colitis (Chronic) Status post ileostomy Hx of coronary artery disease (Chronic) Status post CABG, failed, status post multiple stents. Pulmonary hypertension (Chronic) History of coronary artery stent placement (Chronic 2012) Mid LAD and Cx 2012, D1 and prox OM1 2012, Prox SVG, Distal SVG to the Mid OM 2012 S/P CABG (coronary artery bypass graft) (Chronic 2012) JONES to LAD, SVG diag, SVG to OM, SVG to left PDA Chronic respiratory failure (Chronic) COPD (chronic obstructive pulmonary disease) (Chronic) Medical History: Medical History (Last Reviewed 01/04/18 @ 10:06 by DERIC Cabrera) Thyroid mass (Acute) E07.9 Syncope (Chronic) R55 Vertigo (Chronic) R42 Chronic renal insufficiency (Chronic) N18.9 Sleep apnea (Chronic) G47.30 Menieres disease (Chronic) H81.09 Ulcerative colitis (Chronic) K51.90 CAD (coronary artery disease) (Acute) I25.10 Hyperlipidemia (Chronic) E78.5 Continues on statin without side effect. Reports taking as directed. No recent labs noted. Benign essential HTN (Chronic) I10 DM2 (diabetes mellitus, type 2) (Chronic) E11.9 Hx of coronary artery disease (Chronic) Z86.79 Status post CABG, failed, status post multiple stents. Allergies cinnamon [Cinnamon] Allergy (Verified 01/11/18 14:00) Anaphylaxis Influenza Virus Vaccines Allergy (Verified 01/11/18 14:00) Shortness of breath liraglutide [From Victoza] Allergy (Verified 01/11/18 14:00) Anaphylaxis metronidazole [From Flagyl] Allergy (Verified 01/11/18 14:00) Hives Metronidazole HCl [From Flagyl] Allergy (Verified 01/11/18 14:00) Hives Penicillins Allergy (Verified 01/11/18 14:00) Hives Sulfa (Sulfonamide Antibiotics) Allergy (Verified 01/11/18 14:00) Hives ciprofloxacin [From Cipro] Adverse Reaction (Verified 01/11/18 14:00) Nausea codeine Adverse Reaction (Verified 01/11/18 14:00) Stops Ileostomy dicyclomine HCl [From Bentyl] Adverse Reaction (Verified 01/11/18 14:00) Nausea metformin HCl [From Glucophage] Adverse Reaction (Verified 01/11/18 14:00) Nausea Gtgsptu-Mdk-Bzb Reductase Inhibitor Adverse Reaction (Verified 01/11/18 14:00) Nausea/joints ache Home Medications: Ambulatory Orders Medication Instructions Recorded Ondansetron HCl [Zofran] 4 mg PO Q8H PRN PRN #20 tab 09/05/16 Surgical History: Surgical History (Last Reviewed 01/04/18 @ 10:06 by Hollie Fulton, HEAVY EQUIPMENT PLUMBING SUPERVISOR-C) History of coronary artery stent placement (Chronic) Onset Date: 2012 Z95.5 Mid LAD and Cx 2012, D1 and prox OM1 2012, Prox SVG, Distal SVG to the Mid OM 2012 S/P CABG (coronary artery bypass graft) (Chronic) Onset Date: 2012 Z95.1 JONES to LAD, SVG diag, SVG to OM, SVG to left PDA H/O colectomy Z98.890, Z90.49 H/O sinus surgery Z98.890 H/O total hysterectomy Z98.890, Z90.710 gallbdder removal history closed fissure ileostomy left thumb surgery lysis of adhesion vestibular nerve surgery for Meniere's ABD abscess removal 09/18/2017 Surgical History: angioplasty, coronary bypass surgery, hysterectomy, - Psychiatric History: Anxiety, Depression INBOUND CALL CENTER REPRESENTATIVE History: No pertinent INBOUND CALL CENTER REPRESENTATIVE history Lives: Alone Smoking Status: Former smoker Tobacco Use: Non-smoker Alcohol: None Drugs: None - *Family History Maternal Family History: Family History (Last Reviewed 01/04/18 @ 10:06 by DERIC Cabrera) Mother CVA (cerebral vascular accident) Diabetes Brother Heart disease Myocardial infarction Pancreatitis Father Cancer Lymphoma Grandmother Myocardial infarction Sister COPD (chronic obstructive pulmonary disease) History Items: Heart Disease, - - No autoimmune disease that she is aware of Paternal Family History: Family History (Last Reviewed 01/04/18 @ 10:06 by DERIC Cabrera) Mother CVA (cerebral vascular accident) Diabetes Brother Heart disease Myocardial infarction Pancreatitis Father Cancer Lymphoma Grandmother Myocardial infarction Sister COPD (chronic obstructive pulmonary disease) History Items: Cancer - Father has H/o lymphoma, - - No autoimmune disease that she is aware of Review of Systems Constitutional: Denies: Chills, Fever, Weight Change HEENT: Denies: Head Aches, Sinus Congestion, Sinus Drainage Cardiovascular: Denies: Chest Pain, Palpitations Respiratory: Denies: Cough, Shortness of breath at rest, Sputum production Gastrointestinal: Denies: Abdominal Pain, Nausea, Vomiting Genitourinary: Denies: Dysuria Musculoskeletal: Denies: Joint Pain, Joint Tenderness Skin: Denies: Rash, Wounds Neurological: Denies: Numbness, Tingling, Focal weakness Psychiatric: Denies: Anxiety, Depression, Homicidal Ideations, Suicidal Ideations Hematologic/ Lymphatic: Denies: Easy Bruising, Easy Bleeding VTE Information - Inpt Only VTE Present on Admission: No VTE Mechan Device Prophylaxis: None VTE Pharm Prophylaxis ordered?: Yes - Physical Exam General: Alert, Oriented x3, Cooperative HEENT: Atraumatic, PERRLA, EOMI, Normocephalic Neck: Supple, No JVD, Negative Carotid Bruits Lungs: Clear to auscultation, Normal air movement Cardiovascular: Regular rate, Murmur - 2/6 systolic Abdomen: Bowel Sounds Present, Soft, Non Tender, Obese Extremities: No edema, Capillary Refill Less than 3 Seconds Skin: No rashes, No breakdown Musculoskeletal: No Tenderness to Palpation of Joints or Extremities Neurological: Cranial nerves II-XII grossly intact Psych/Mental Status: Normal Affect, Appropriate, Alert and oriented to time, place, person, mood and affect Vital Signs Temp Pulse Resp BP Pulse Ox 97.8 F 77 16 144/70 H 97 01/11/18 13:41 01/11/18 15:27 01/11/18 15:21 01/11/18 15:27 01/11/18 15:21 Oxygen Delivery Method Room Air Weight: 195 lb Body Mass Index (BMI) 30.5 Finger Stick Blood Glucose 348 Laboratory Tests Past 24 Hrs WBC 5.6 RBC 4.64 Hgb 12.8 Hct 40.2 MCV 86.6 MCH 27.6 MCHC 31.8 L RDW 15.8 H RDW Differential 49.8 H Assessment/Plan All Active Problems (Last Reviewed 01/04/18 @ 10:06 by Hollie Fulton NP-C) Hallucinations (Acute) Thyroid mass (Acute) Right thyroid nodule (Acute) Sepsis (Acute) Abdominal pain (Acute) CAD (coronary artery disease) (Acute) Acute pancreatitis (Resolved) Chest pain (Resolved) Hypokalemia (Resolved) 1. Chest pain in the setting of severe CAD with prior CABGx 4 stents x 9 - recent negative stress test. Consult Dr. Stone. Trop negative. EKG without acute change. Chest xray negative. Cycle enzymes. Repeat EKG. Maintain on tele. Await further recommendation from her training and development project leader. Continue asa, statin, plavix, isosorbide dinitrate, metoprolol. Pt not on an kimberli inhibitor. 2. DMt2 - continue home insulin + SSI. Check A1C. glucose 300+. Follows Se. 3. COPD stable - prn aerosols. Follows Dr. Baca. 4. Ulcerative colitis s/p colectomy, ostomy - wound care consult. Some drainage recently. Afebrile, no leukocytosis. 5. Hx ANKITA 6. HLD - statin 7. HTN - poorly controlled. consider addition of kimberli/arb 8. Menieres - vestibular nerve severed previously. Has risidual episodic vertigo. 9. CKDIII - stable. 10. Hx diastolic CHF - does not appear to be in exacerbation - last EF 65% per Echo 07/2017. Defer repeat. Stage 1 diastolic dyfunction 11. Chronic pain syndrome - continue home pain meds. DVT ppx: heparin This patient was seen by Tomas Sun PA-C under the supervision of Doctor Ev. 01/11/181635 <Electronically signed by Tomas JONES> Date Tomas JONES 01/11/181636<Electronically signed by Valentine Carreno > Cosigner Signature: Date (if applicable) Valentine Carreno CC: ROBERT Sun; Valentine Carreno; Shannan Mcgrath MD Signed CHEST 1 VIEW Observed: 01/11/2018 Status: F Source: [place] (PORTABLE) 2:38 PM [facility] [place] [facility] Imaging Services [address] [place] [id number] Chest 1 View (Portable) MR#: [id number] Acct: [id number] Name: AILYN MÉNDEZ Jamaal Rep #: [id number] : 1960 F 57 From: Eric Spencer MD PCP: Shannan Mcgrath MD Status: REG ER Study: Chest 1 View (Portable) Date of Exam: 01/11/18 Exam# [id number] Ordering Dr: Manjeet Carter MD STUDY: X-RAY CHEST REASON FOR EXAM: Female, 57 years old. Chest pain. TECHNIQUE: Single AP portable view of the chest. COMPARISON: Comparison is made with prior study dated September 06, 2017. FINDINGS: EKG electrodes are seen. The lungs are clear and expanded. There is no demonstrated pleural abnormality. Sternal cerclage wires and vascular clips are present from a prior sternotomy and coronary artery bypass graft procedure (CABG). Normal mediastinum and marie. Normal visualized pulmonary arteries. Normal visualized aortic arch and descending thoracic aorta. Normal visualized thoracic spine. Normal visualized ribs, clavicles, and shoulders. There is no demonstrated abnormality of the visualized soft tissue structures of the upper abdomen. RAD/Chest 1 View (Portable) IMPRESSION: Normal x-ray examination of the chest. Electronically Signed: Eric Spencer MD at 15:26 EST Tel [phone], Service support , CC: Shannan Mcgrath MD; Manjeet Carter MD Jboss Developer: Signed BASIC METABOLIC Collected: 01/11/2018 Status: F Source: [place] PROFILE (BMP) 1:59 PM [facility] [place] TYPE CODE TESTS RESULT OUT OF RANGE REFERENCE UNITS LAB L501.0100 74-106 mg/dL High GLU 311 Result Comment: Glucose result greater than or equal to 200 mg/dL suggests DIABETES MELLITUS per A.D.A. criteria. Please note revised GLUCOSE reference range effective 2017. LAB L501.1000 7-18 mg/dL High BUN 20 LAB L501.1100 0.55-1.02 mg/dL High CREAT,SERUM 1.32 Result Comment: The validity of the calculated GFR AND GFRAA in patients over 70 years has not been determined. Clinical correlation is essential. LAB L501.1110 >60 mL/min Low EST GFR 44 Result Comment: Non- GFR Calc LAB L501.1115 >60 mL/min Low EST GFR - AA 53 Result Comment: GFR Calc LAB L501.1255 ml/min Normal Estimated CRCL 44.63 LAB L501.1300 10-20 RATIO Normal BUN/CRE 15.2 LAB L501.2200 8.5-10 mg/dL Normal .1 CA 9.0 LAB L501.5300 136-14 mmol/L Normal 5 NA 136 LAB L501.5600 3.5-5. mmol/L Normal 1 K 4.4 LAB L501.5900 98-107 mmol/L Normal CL 103 LAB L501.6100 21.0-3 mmol/L Normal 2.0 CO2 24.0 LAB L501.6200 5-15 Normal GAP 9 Performed By: #### L500.2500, L501.4010 #### [facility] [address] [place], [address] TROPONIN-I Collected: 01/11/2018 Status: F Source: [place] 1:59 PM [facility] [place] TYPE CODE TESTS RESULT OUT OF RANGE REFERENCE UNITS LAB L501.4010 <0.045 ng/mL Normal < 0.015 TROPONIN-I Result Comment: TROPONIN-I EXPECTED VALUES <0.045 Negative 0.045 - 0.590 Consistent with Cardiac Damage > OR = 0.600 Critical Value Not every elevated troponin is indicative of CT. These values should be used with clinical judgement in examining the patient's clinical picture for diagnosis. To establish a diagnosis of CT versus myocardial injury, there must be a demonstrated rise and/or fall in the troponin values, in addition to ischemic symptoms, EKG changes, new regional wall motion abnormality, and/or angiographical evidence. PLEASE NOTE: REFERENCE RANGES EDITED 17 Performed By: #### L500.2500, L501.4010 #### [facility] [address], [place], [address] CBC W/DIFF, AUTOMATED Collected: 01/11/2018 Status: F Source: [place] 1:59 PM [facility] [place] CODE TESTS RESULT OUT OF RANGE REFERENCE UNITS LAB L100.1000 4.4-11.0 K/mm3 Normal WBC 5.6 LAB L100.1200 4.2-5.4 M/mm3 Normal RBC 4.64 LAB L100.1300 12.0-15.0 g/dl Normal HGB 12.8 LAB L100.1400 37-47 % Normal HCT 40.2 LAB L100.1500 81-99 fL Normal MCV 86.6 LAB L100.1600 27.0-32.0 pg Normal MCH 27.6 LAB L100.1700 32-36 g/gl Low MCHC 31.8 LAB L100.1810 11.6-14.6 % High RDW CV 15.8 LAB L100.1820 35.1-43.9 fl High RDW SD 49.8 LAB L100.1900 150-450 K/mm3 Normal PLT 160 LAB L100.2000 6.2-12.0 fl High MPV 12.7 LAB L100.2100 47-70 % Normal NEUT% 53.5 LAB L100.2200 19-41 % Normal LY% 35.1 LAB L100.2300 0-10 % Normal MONO% 5.4 LAB L100.2400 0-5 % Normal EO% 5.0 LAB L100.2500 0-1 % Normal BASO% 0.5 LAB L100.2550 0.0-0.9 % Normal IM GRAN % 0.500 Result Comment: IG% - Immature Granulocytes (promyelocytes, myelocytes and metamyelocytes) > 1% indicates that a LEFT SHIFT is Present. LAB L100.2620 2.0-7.7 X10 3/uL Normal Absolute Neut 3.0 LAB L100.2720 0.83-4.51 X10 3/ul Normal Absolute Lymph 1.96 Performed By: #### L100.0100 #### [facility] [address] [place], [address] INTERNAL MEDICINE Observed: 01/06/2018 Status: F Source: [place] OFFICE VISIT 6:28 PM [facility] [place] [facility] [place] [address] [place] [address] OFFICE VISIT Date of Service: 01/04/18 MR#: [id number] Acct: [id number] Name: AILYN MÉNDEZ Rep #: [id number] : 1960 Provider: Shannan Mcgrath MD Age/Sex: 57/F [place] [facility] [facility] [place] Status: Signed Intake Vital Signs01/04/18 Height 5 ft 7 in 01/04/18 Weight: 193 lb 01/04/18 Body Mass Index (BMI) 30.2 01/04/18 Blood Pressure 110/72 01/04/18 Blood Pressure Location Rt brachial Intake Visit Reasons: HIGH BS, SURG SITE DRAINAGE Chief Complaint: High BS, Drg surg site, AND Hallucinations Is patient in pain?: Yes (surgery site) Pain scale (1-10): 6 Allergies cinnamon [Cinnamon] Allergy (Verified 01/04/18 08:55) Anaphylaxis Influenza Virus Vaccines Allergy (Verified 01/04/18 08:55) Shortness of breath liraglutide [From Victoza] Allergy (Verified 01/04/18 08:55) Anaphylaxis metronidazole [From Flagyl] Allergy (Verified 01/04/18 08:55) Hives Metronidazole HCl [From Flagyl] Allergy (Verified 01/04/18 08:55) Hives Penicillins Allergy (Verified 01/04/18 08:55) Hives Sulfa (Sulfonamide Antibiotics) Allergy (Verified 01/04/18 08:55) Hives ciprofloxacin [From Cipro] Adverse Reaction (Verified 01/04/18 08:55) Nausea codeine Adverse Reaction (Verified 01/04/18 08:55) Stops Ileostomy dicyclomine HCl [From Bentyl] Adverse Reaction (Verified 01/04/18 08:55) Nausea metformin HCl [From Glucophage] Adverse Reaction (Verified 01/04/18 08:55) Nausea Kvwtqjc-Gzp-Ccz Reductase Inhibitor Adverse Reaction (Verified 01/04/18 08:55) Nausea/joints ache Medications Aspirin [Aspirin, Baby] 81 mg PO DAILY@0800 01/21/15 [History Confirmed 01/04/18] Ondansetron HCl [Zofran] 4 mg PO Q8H PRN PRN #20 tab 09/05/16 [Rx Confirmed 01/04/18] Baclofen 10 mg PO QHS 11/24/16 [History Confirmed 01/04/18] loperamide 2 mg tablet 2 mg PO 4X/DAY PRN PRN tab 02/12/17 [History Confirmed 01/04/18] insulin aspart U- 100 100 unit/mL subcutaneous pen 20 - 40 units SC TIDCM ml 03/23/17 [History Confirmed 01/04/18] miconazole nitrate 2 % topical powder 1 applic TOPICAL DAILY 03/23/17 [History Confirmed 01/04/18] tramadol 50 mg tablet 50 mg PO BID PRN PRN tab 05/05/17 [History Confirmed 01/04/18] Hydrocortisone 1 applic TOPICAL BID 06/02/17 [History Confirmed 01/04/18] nitroglycerin 0.4 mg sublingual tablet 0.4 mg SUBLINGUAL Q5M PRN #25 tab 06/08/17 [Rx Confirmed 01/04/18] Furosemide [Lasix] 40 mg PO DAILY 07/07/17 [History Confirmed 01/04/18] insulin glargine (U-100) 100 unit/mL (3 mL) subcutaneous pen 80 units SC BID ml 09/02/17 [History Confirmed 01/04/18] Pen Needle, Diabetic [Unifine Pentips Plus] 1 ndl .ROUTE .MEDSUPPLY 09/06/17 [History Confirmed 01/04/18] blood pressure monitor kit See Dose Instructions .ROUTE .MEDSUPPLY #1 ea 09/15/17 [Rx Confirmed 01/04/18] clopidogrel 75 mg tablet 75 mg PO DAILY #30 tab 09/21/17 [Rx Confirmed 01/04/18] isosorbide dinitrate 30 mg tablet 30 mg PO TID #90 tab 09/21/17 [Rx Confirmed 01/04/18] magnesium oxide 400 mg (241.3 mg magnesium) tablet 400 mg PO BID #60 tab 09/21/17 [Rx Confirmed 01/04/18] metoprolol tartrate 50 mg tablet 75 mg PO BID #90 tab 09/21/17 [Rx Confirmed 01/04/18] Handicap Placard See Rx Instructions .ROUTE .COMPLEX 360 Days #1 10/18/17 [Rx Confirmed 01/04/18] buprenorphine 7.5 mcg/hour weekly transdermal patch 1 patch TRANSDERMAL QWEEK 10/18/17 [History Confirmed 01/04/18] omeprazole 20 mg capsule,delayed release 20 mg PO DAILY #90 cap 10/19/17 [Rx Confirmed 01/04/18] pregabalin 50 mg capsule 50 mg PO BID #60 cap 10/19/17 [Rx Confirmed 01/04/18] calcium carbonate 600 mg calcium (1,500 mg) tablet 600 mg PO BID #60 tab 11/30/17 [Rx Confirmed 01/04/18] cholecalciferol (vitamin D3) 2,000 unit capsule 2,000 unit PO DAILY #90 cap 11/30/17 [Rx Confirmed 01/04/18] lorazepam 0.5 mg tablet 0.5 mg PO QHS PRN #30 tab 11/30/17 [Rx Confirmed 01/04/18] FreeStyle Micki 10 Day [place] See Dose Instructions .ROUTE .MEDSUPPLY #1 ea NS 12/14/17 [Rx Confirmed 01/04/18] FreeStyle Micki 10 Day Sensor kit See Dose Instructions .ROUTE .MEDSUPPLY #3 ea NS 12/14/17 [Rx Confirmed 01/04/18] atorvastatin 80 mg tablet 80 mg PO QHS #90 tab 12/20/17 [Rx Confirmed 01/04/18] venlafaxine ER 75 mg capsule,extended release 24 hr 75 mg PO DAILY #60 cap 12/20/17 [Rx Confirmed 01/04/18] PFSH Medical History Thyroid mass (Acute) Syncope (Chronic) Vertigo (Chronic) Chronic renal insufficiency (Chronic) Sleep apnea (Chronic) Menieres disease (Chronic) Ulcerative colitis (Chronic) CAD (coronary artery disease) (Chronic) Hyperlipidemia (Chronic) Benign essential HTN (Chronic) DM2 (diabetes mellitus, type 2) (Chronic) Hx of coronary artery disease (Chronic) Surgical History History of coronary artery stent placement (Chronic 2012) S/P CABG (coronary artery bypass graft) (Chronic 2012) H/O colectomy (Acute) H/O sinus surgery (Acute) H/O total hysterectomy (Acute) gallbdder removal (Acute) history closed fissure (Acute) ileostomy (Acute) left thumb surgery (Acute) lysis of adhesion (Acute) vestibular nerve surgery for Meniere's (Acute) ABD abscess removal (Resolved) Family History Mother CVA (cerebral vascular accident) Diabetes Brother Heart disease of CAD at 65 Myocardial infarction Pancreatitis Father Cancer lymphomia Lymphoma Grandmother Myocardial infarction of CT in her 70s Sister COPD (chronic obstructive pulmonary disease) Social History Smoking Status: Former smoker how long ago did patient quit smokin, 0.5p/d second hand exposure: Yes alcohol intake: never substance use type: does not use caffeine: Yes Type: coffee eating out: 1-3 times/week what type of physical activity do you participate in: none seatbelt use: always do you feel safe at home: Yes HPI HPI Chief Complaint: High BS, Drg surg site, AND Hallucinations Details: AILYN MÉNDEZ, is a 57yo F who presents to the office today due to several concerns. She reports worsening hallucinations. She describes them as seeing people, hearing her cat talk and hearing music. This was present during her last visit however she states that it appears to be more now. During her last visit, she was switched from Cymbalta to Effexor due to worsening depression. She was also referred to the behavioral health center however, she is yet to follow-up. She is also concerned about elevated blood sugars. She recently had her micki sensor and states that her readings are noted to be in the 500s through yesterday. This morning however, it is said to be in the 200s. There is concern for increased abdominal pain around surgical site. She states that while cleaning it yesterday she noticed some bleeding of the site. She denies any purulent discharge. ROS Const Constitutional: No chills, fatigue, fever(s), frequent falls, malaise, weakness, sleep problems or change in appetite Eyes Eyes: No blurry vision, change in vision, double vision, discharge or visual disturbances ENT ENT: No abnormal hearing, ear pain, ear pressure, tinnitus or dizziness/vertigo Resp Respiratory: No cough, shortness of breath or wheezing Cardio Cardiology: No chest pain at rest, chest pain with exertion, shortness of breath, dyspnea on exertion, generalized swelling, irregular heart rhythm, lightheadedness, orthopnea, fast heart rate or palpitations Gastro GI: No abdominal pain, change in bowel habits, constipation, diarrhea, nausea/dyspepsia or vomiting Genitourinary-Female: No difficulty urinating, burning urination, painful urination, urinary incontinence, urinary frequency, urinary urgency, urinary hesitancy, urinary retention, Frequent nighttime urination/ nocturia, sexual problems, genital lesions, abnormal vaginal bleeding, pelvic pain, vaginal dryness, vaginal odor or Vaginal Itching Musc Musculoskeletal: No joint pain, back pain, joint swelling, limited range of motion, numbness, tingling or muscle weakness Skin Skin: Positive for wounds (Surgical site, drg) and other; no change in skin color, itching or rash Breast Breast: Positive for other; no breast lump or breast pain Neuro Neurology: No frequent falls, weakness, abnormal hearing, numbness, tingling, unsteady gait/balance, dizziness, loss of vision, memory loss or visual disturbances Psych Psychiatric: No memory loss, No anxiety, No change in appetite, No depression, No Thoughts of harming yourself/Others, Positive for hallucinations (getting worse) Endo Endocrine: No fatigue, heat intolerance, increased thirst/drinking, increased hunger or increased urination Aller/Imm Allergy/Immunologic: No wheezing, itchy eyes or seasonal allergy symptoms Jose/Lymp Hematologic/Lymphatic: No easy bleeding, easy bruising or enlarged lymph nodes Exam Const General: cooperative, no acute distress Orientation: alert, awake, oriented x3 HENMT Head: atraumatic, normocephalic Ears: hearing grossly normal bilaterally Resp Effort AND Inspection: normal respiratory effort, able to speak in complete sentences Auscultation: Bilateral: Clear to Auscultation Cardio Rate: regular rate Rhythm: regular rhythm Heart Sounds: S2 normal, S1 normal GI Palpation: soft, no hepatosplenomegaly Other: Surgical site clean and dry. No drainage appreciated. Mild scabbing. Musc Musculoskeletal: No muscle weakness Neuro General: alert, awake, oriented x3, moves all extremities, CN's II-XI intact bilaterally Extrem General: no clubbing, cyanosis or edema Psych Appearance: grossly normal Mental Status: mental status grossly normal Mood: congruent mood Affect: normal affect Assessment AND Plan 1. Hallucinations R44.3 Plan Said to have been worsening. Describes them as visual and auditory hallucinations. Her significant other is concerned for possible infection. She reports prior history of hallucinations being associated with sepsis. Vitals however stable and her hallucinations have been ongoing for over a month. Labs ordered. If no significant concern, I have advised that she either goes to the ER for acute inpatient psych management or follow-up with the behavioral center/psych outpatient. Orders Orders: 2. Right lower quadrant abdominal pain R10.31 Plan She reports ongoing pain around her surgical site and states that while cleaning yesterday she noted some blood. No concerns on examination, mild scabbing. Ultrasound ordered. Adaptic over top for now. Follow-up with results. 3. Type 2 diabetes mellitus with complication, with long-term current use of insulin E11.8 Plan She states that yesterday her blood sugars were in the 500s with her the micki sensor. Now down to the 200s this morning without any significant change. Continue current medications. Lifestyle and dietary modifications. Labs as above to rule out infection. This note was generated with [employer] software. It may contain incorrect words, spelling, and punctuation that were not noted in checking the note before signing. 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 01/06/18 1828 <Electronically signed by Shannan Mcgrath MD> Date Shannan Mcgrath MD Cosigner Signature: Date (if applicable) CC: ABDOMEN COMPLETE Observed: 01/05/2018 Status: F Source: [place] 10:27 AM [facility] [place] [facility] Imaging Services [address] [place] [id number] Abdomen Complete MR#: [id number] Acct: [id number] Name: AILYN MÉNDEZ Rep #: [id number] : 1960 F 57 From: Eric Spencer MD PCP: Shannan Mcgrath MD Status: REG CLI Study: Abdomen Complete Date of Exam: 01/05/18 Exam# [id number] Ordering Dr: Shannan Mcgrath MD STUDY: ABDOMINAL ULTRASOUND REASON FOR EXAM: Female, 57 years old. Right lower quadrant pain. TECHNIQUE: Transabdominal ultrasound was performed with real-time and static rowland scale imaging. TECHNICAL QUALITY: Adequate. COMPARISON: Comparison is made with prior examination in October 28, 2016. FINDINGS: Liver: The liver measures 17.0 cm. There is increased echogenicity consistent with fatty infiltration. The bile ducts are within normal limits. There is hepatic color flow. The direction of portal flow is hepatopetal. There is no demonstrated mass lesion. Portal vein measurement: Gallbladder: The patient is status post cholecystectomy. Common Bile Duct (C.B.D.): The common bile duct measures 7.2 mm. Pancreas: Normal size of the head, body and tail of the pancreas. There is increased echogenicity of the pancreas. There is no demonstrated pancreatic mass or cyst. Spleen: There is mild splenomegaly. The spleen measures 12.7 cm x 7.6 cm x 4.4 cm. Right Kidney: Normal size of the right kidney. The right kidney measures 9.4 sinus by 5.5 cm x 4.2 cm. Normal renal cortex. The right cortex measures 1.1 cm. There is no demonstrated renal mass or cyst. There is no right hydronephrosis. Left Kidney: Normal size of the left kidney. The left kidney measures 10.4 cm x 4.6 x 5.6 cm. Normal renal cortex. The left cortex measures 1.3 cm. There is no demonstrated renal mass or cyst. There is no left hydronephrosis. Aorta: Unremarkable. I.V.C.: The IVC is patent. There is no ascites. US/Abdomen Complete IMPRESSION: Fatty infiltration of the liver. Status post cholecystectomy. Mild splenomegaly. Electronically Signed: Eric Spencer MD at 13:39 EDT Tel [phone], Service support , CC: Shannan Mcgrath MD Jboss Developer: Signed PULMONARY VISIT REPORT Observed: 01/04/2018 Status: F Source: [place] 12:10 PM [facility] [place] [facility] [address] [place] [address] OFFICE VISIT Date of Service: 01/04/18 MR#: [id number] Acct: [id number] Name: AILYN MÉNDEZ Rep #: [id number] : 1960 Provider: Hollie Fulton Age/Sex: 57/F [place] [facility] [facility] [place] Status: Signed Assessment AND Plan 1. Obstructive sleep apnea G47.33 Plan Deteriorated. The patient is having difficulty acclimating to Pap therapy, states that when wearing it does not feel she is getting enough air. It has been nearly 4 years since her last titration study. She has had somewhat of a weight change. I do believe she requires a titration study at this time to accurately identify the appropriate pressures, with anticipation that she will have more comfort that will increase her compliance with Pap therapy. Follow-up with Dr. Baca in 3 months, at which time anticipate she will be on new settings for approximately 4-6 weeks. Orders Orders: 2. Shortness of breath R06.02 Plan PFTs did not show obstruction, walking oximetry completed in the office today and ruled out hypoxia with exertion. Plan to repeat CT of the chest in 3 months prior to follow-up with Dr. Baca to evaluate previously seen groundglass opacities. Orders Orders: 3. Depression, unspecified depression type F32.9 Plan Complicates exam, plan, care and prognosis. Did discuss with the patient that better compliance with Pap therapy could have a positive impact on her depression. 4. Hallucinations R44.3 Plan Also complicates exam, plan, care and prognosis. Impacts patient's ability to compliant with Pap therapy. Plan Detail Follow Up 3 Months ([facility]) HPI 3 M FU: Chief Complaint: shortness of breath HPI Comments Details: This patient presents to the office today to follow-up on her shortness of breath and obstructive sleep apnea. She is ambulatory, currently in room air and accompanied by family. She admits that she has not been very compliant with her Pap therapy. She states that she could give me 100 excuses why she does not use it. She states that her cats do not like it, the mask hurts her nose, the headgear either runs along the top of her ear or just below her ear, both are uncomfortable. When asked if she understands the importance of the CPAP she states that you guys keep telling me how important it is but it does not make me feel better. She also states that it is difficult to wear the CPAP because she is having hallucinations. She is currently under medical care and recently had new medications prescribed for these hallucinations. She is also seeking counseling. She admits that she has trouble with anxiety and deep depression. She reports shortness of breath that sometimes occurs on exertion and can occur when sitting still. She cannot identify any factors that aggravate her shortness of breath or alleviate it. She states that when she tried using the albuterol rescue inhaler for the shortness of breath it was on effective, therefore she has not used it in quite some time. She is not currently on any maintenance inhalers. She has not tried any cmol-gjy-kkgajtt medications for it. She does follow with cardiology and saw them earlier today. She denies any wheezing, chest tightness, chest pain or palpitations. She has not experienced any cough, sputum production or hemoptysis. She also denies any experience with fever, chills or body aches recently. Compliance report for the past 30 days was reviewed and shows 40% compliance, average use is 3 hours and 42 minutes per night. Current setting is 7 cm of water. AHI is controlled when wearing the device at 2 events per hour. Leaks do not really appear to be an issue. The patient states that she has not replaced any of her parts since she first obtained the machine 2 years ago. Intake Vital Signs01/04/18 Pulse Ox 94 01/04/18 Oxygen Delivery Method room air 01/04/18 Comment Min#6 Ambulating Intake Visit Reasons: 3 M FU Accompanied by: Friend Allergies cinnamon [Cinnamon] Allergy (Verified 01/04/18 08:55) Anaphylaxis Influenza Virus Vaccines Allergy (Verified 01/04/18 08:55) Shortness of breath liraglutide [From Victoza] Allergy (Verified 01/04/18 08:55) Anaphylaxis metronidazole [From Flagyl] Allergy (Verified 01/04/18 08:55) Hives Metronidazole HCl [From Flagyl] Allergy (Verified 01/04/18 08:55) Hives Penicillins Allergy (Verified 01/04/18 08:55) Hives Sulfa (Sulfonamide Antibiotics) Allergy (Verified 01/04/18 08:55) Hives ciprofloxacin [From Cipro] Adverse Reaction (Verified 01/04/18 08:55) Nausea codeine Adverse Reaction (Verified 01/04/18 08:55) Stops Ileostomy dicyclomine HCl [From Bentyl] Adverse Reaction (Verified 01/04/18 08:55) Nausea metformin HCl [From Glucophage] Adverse Reaction (Verified 01/04/18 08:55) Nausea Vgejwyk-Uai-Wnt Reductase Inhibitor Adverse Reaction (Verified 01/04/18 08:55) Nausea/joints ache Medications Aspirin [Aspirin, Baby] 81 mg PO DAILY@0800 01/21/15 [History Confirmed 01/04/18] Ondansetron HCl [Zofran] 4 mg PO Q8H PRN PRN #20 tab 09/05/16 [Rx Confirmed 01/04/18] Baclofen 10 mg PO QHS 11/24/16 [History Confirmed 01/04/18] loperamide 2 mg tablet 2 mg PO 4X/DAY PRN PRN tab 02/12/17 [History Confirmed 01/04/18] insulin aspart U- 100 100 unit/mL subcutaneous pen 20 - 40 units SC TIDCM ml 03/23/17 [History Confirmed 01/04/18] miconazole nitrate 2 % topical powder 1 applic TOPICAL DAILY 03/23/17 [History Confirmed 01/04/18] tramadol 50 mg tablet 50 mg PO BID PRN PRN tab 05/05/17 [History Confirmed 01/04/18] Hydrocortisone 1 applic TOPICAL BID 06/02/17 [History Confirmed 01/04/18] nitroglycerin 0.4 mg sublingual tablet 0.4 mg SUBLINGUAL Q5M PRN #25 tab 06/08/17 [Rx Confirmed 01/04/18] Furosemide [Lasix] 40 mg PO DAILY 07/07/17 [History Confirmed 01/04/18] insulin glargine (U-100) 100 unit/mL (3 mL) subcutaneous pen 80 units SC BID ml 09/02/17 [History Confirmed 01/04/18] Pen Needle, Diabetic [Unifine Pentips Plus] 1 ndl .ROUTE .MEDSUPPLY 09/06/17 [History Confirmed 01/04/18] blood pressure monitor kit See Dose Instructions .ROUTE .MEDSUPPLY #1 ea 09/15/17 [Rx Confirmed 01/04/18] clopidogrel 75 mg tablet 75 mg PO DAILY #30 tab 09/21/17 [Rx Confirmed 01/04/18] isosorbide dinitrate 30 mg tablet 30 mg PO TID #90 tab 09/21/17 [Rx Confirmed 01/04/18] magnesium oxide 400 mg (241.3 mg magnesium) tablet 400 mg PO BID #60 tab 09/21/17 [Rx Confirmed 01/04/18] metoprolol tartrate 50 mg tablet 75 mg PO BID #90 tab 09/21/17 [Rx Confirmed 01/04/18] Handicap Placard See Rx Instructions .ROUTE .COMPLEX 360 Days #1 10/18/17 [Rx Confirmed 01/04/18] buprenorphine 7.5 mcg/hour weekly transdermal patch 1 patch TRANSDERMAL QWEEK 10/18/17 [History Confirmed 01/04/18] omeprazole 20 mg capsule,delayed release 20 mg PO DAILY #90 cap 10/19/17 [Rx Confirmed 01/04/18] pregabalin 50 mg capsule 50 mg PO BID #60 cap 10/19/17 [Rx Confirmed 01/04/18] calcium carbonate 600 mg calcium (1,500 mg) tablet 600 mg PO BID #60 tab 11/30/17 [Rx Confirmed 01/04/18] cholecalciferol (vitamin D3) 2,000 unit capsule 2,000 unit PO DAILY #90 cap 11/30/17 [Rx Confirmed 01/04/18] lorazepam 0.5 mg tablet 0.5 mg PO QHS PRN #30 tab 11/30/17 [Rx Confirmed 01/04/18] FreeStyle Micki 10 Day [place] See Dose Instructions .ROUTE .MEDSUPPLY #1 ea NS 12/14/17 [Rx Confirmed 01/04/18] FreeStyle Micki 10 Day Sensor kit See Dose Instructions .ROUTE .MEDSUPPLY #3 ea NS 12/14/17 [Rx Confirmed 01/04/18] atorvastatin 80 mg tablet 80 mg PO QHS #90 tab 12/20/17 [Rx Confirmed 01/04/18] venlafaxine ER 75 mg capsule,extended release 24 hr 75 mg PO DAILY #60 cap 12/20/17 [Rx Confirmed 01/04/18] [facility] Medical History Thyroid mass (Acute) Syncope (Chronic) Vertigo (Chronic) Chronic renal insufficiency (Chronic) Sleep apnea (Chronic) Menieres disease (Chronic) Ulcerative colitis (Chronic) CAD (coronary artery disease) (Chronic) Hyperlipidemia (Chronic) Benign essential HTN (Chronic) DM2 (diabetes mellitus, type 2) (Chronic) Hx of coronary artery disease (Chronic) Surgical History History of coronary artery stent placement (Chronic 2012) S/P CABG (coronary artery bypass graft) (Chronic 2012) H/O colectomy (Acute) H/O sinus surgery (Acute) H/O total hysterectomy (Acute) gallbdder removal (Acute) history closed fissure (Acute) ileostomy (Acute) left thumb surgery (Acute) lysis of adhesion (Acute) vestibular nerve surgery for Meniere's (Acute) ABD abscess removal (Resolved) Family History Mother CVA (cerebral vascular accident) Diabetes Brother Heart disease of CAD at 65 Myocardial infarction Pancreatitis Father Cancer lymphomia Lymphoma Grandmother Myocardial infarction of CT in her 70s Sister COPD (chronic obstructive pulmonary disease) Social History Smoking Status: Former smoker how long ago did patient quit smokin, 0.5p/d second hand exposure: Yes alcohol intake: never substance use type: does not use caffeine: Yes Type: coffee eating out: 1-3 times/week what type of physical activity do you participate in: none seatbelt use: always do you feel safe at home: Yes Review of Systems Const CONSTITUTIONAL: Negative anorexia, body ache, chills, daytime sleepiness, fever(s), night sweats, oral thrush, stops breathing during sleep, weight loss, sleeping in chair, fatigue, weight loss, weight gain, frequent colds, seasonal allergies, other, headache(s) or orthopnea EETM Ear Nose Throat Mouth: Positive hearing normal; negative hoarseness, dry mouth in morning, change in vision, itchy eyes, eye pain, swallowing Difficulty, ear pain, headache(s), mouth pain, nasal congestion, nasal discharge, sinus pain, sinus pressure, sore throat, other, hard of hearing, nose bleed or post nasal drip Cardio Cardiovascular: Negative chest pain, chest pain at rest, chest pain with activity, irregular heart rhythm, edema, shortness of breath when lying down, palpitations, other or murmur Resp Respiratory: Positive as per HPI, shortness of breath shortness of breath: Positive with activity and chest tightness; negative pain with cough, wheezing, chest congestion, cough, pain on inspiration, inhalers, increase use of rescue inhalers, snoring, apnea or other Gastro Gastrointestional: Negative bloody stools, change in appetite, difficulty swallowing, reflux, hematemesis, melena stool, loose stool, constipation or other Genitourinary: Negative blood in urine, nocturia, pain with urination or other Musc Musculoskeletal: Negative body pain, back pain, neck pain or other Skin/Breast Skin/Breast: Negative dry skin, itching, unusual bruising, breast lump, other or rash Neuro Neurological: Negative restless legs, confusion, weakness or other Psych Psychocological: Negative abnormal sleep pattern, anxiety, thoughts of hurting self/others, hopelessness or other Lymph Lymphatic: Negative easy bleeding, easy bruising, other or swollen lymph nodes Exam Const Constitutional: Positive cooperative, in no acute respiratory distress, healthy appearing, well developed, well nourished, obese and conversant Head Head: Positive normocephalic and atraumatic; negative cyanosis of lips/distal nose Eyes Eye: Positive clear conjunctiva; negative nystagmus or scleral abnormality Ears Ear: Positive hearing normal and external ears normal; negative hard of hearing Nose Nose: Positive external nose normal and no nasal discharge; negative epistaxis Mouth Mouth: Positive oral mucosae normal, no lesions and crowded posterior oropharynx; negative post nasal drip, malodorous breath or oral thrush present Mallampati Score: III: Mallampati Score Neck Neck: Positive normal visual inspection, full ROM and trachea midline; negative lymphadenopathy, JVD or tender Chest Wall Chest: Positive normal inspection of the chest and symmetric chest movement; negative increased A/P diameter Resp lung sounds: Positive clear to auscultation, good air exchange, normal expiratory time and normal respiratory effort; negative diminished, wheezes, rhonchi, rales, dullness to percussion or wheeze present on forced exhalation Cardio Cardiac: Positive regular rate, regular rhythm, S1 normal and S2 normal; negative murmur GI GI: Positive normal to inspection and obese; negative distended Genitourinary: Positive deferred Musc Musculoskeletal: Positive steady gait and ROM normal; negative kyphosis or scoliosis Skin Pulmonary Skin Exam: Positive intact; negative rash Pulses Pulse: Yes pulses normal x4 extremities Extremities Extremities: Yes capillary refill normal, No clubbing, No cyanosis, No edema Neuro Neurologic: Yes conversant, Yes no focal neuro deficits, Yes normal concentration, Yes understands questions, Yes cooperative, Yes normal cognition, Yes normal coordination Lymph Lymphatic: No lymphadenopathy, No tenderness, No cervical adenopathy Psych Appearance: Positive grossly normal, eye contact and well kempt Mental Status: Positive mental status grossly normal Mood: Positive congruent mood Affect: Positive normal affect Office Procedures Walking Oximetry Walking Oximetry Procedure performed by: Huma Burch Walking Oximetry: Yes walking oximetry preformed, see nurisng documentation, desaturation below 89% did not occur, no signs of distress prior to departing office and no indication for supplemental oxygen at this time Coding Level of Care Code Off vis,est,level 4 Diagnoses Obstructive sleep apnea G47.33 Shortness of breath R06.02 Depression, unspecified depression type F32.9 Depression Type: unspecified Hallucinations R44.3 01/04/18 1210 <Electronically signed by Hollie LEOS> Date Hollie LOVETTC Cosigner Signature: Date (if applicable) CC: Shannan Mcgrath MD CBC W/DIFF, AUTOMATED Collected: 01/04/2018 Status: F Source: [place] 9:30 [place] [facility] [place] CODE TESTS RESULT OUT OF RANGE REFERENCE UNITS LAB L100.1000 4.4-11.0 K/mm3 Normal WBC 8.3 LAB L100.1200 4.2-5.4 M/mm3 Normal RBC 5.06 LAB L100.1300 12.0-15.0 g/dl Normal HGB 14.1 LAB L100.1400 37-47 % Normal HCT 42.8 LAB L100.1500 81-99 fL Normal MCV 84.6 LAB L100.1600 27.0-32.0 pg Normal MCH 27.9 LAB L100.1700 32-36 g/gl Normal MCHC 32.9 LAB L100.1810 11.6-14.6 % High RDW CV 15.7 LAB L100.1820 35.1-43.9 fl High RDW SD 47.0 LAB L100.1900 150-450 K/mm3 Normal PLT 201 LAB L100.2000 6.2-12.0 fl High MPV 13.4 LAB L100.2100 47-70 % Normal NEUT% 53.8 LAB L100.2200 19-41 % Normal LY% 34.2 LAB L100.2300 0-10 % Normal MONO% 6.5 LAB L100.2400 0-5 % Normal EO% 4.3 LAB L100.2500 0-1 % Normal BASO% 0.5 LAB L100.2550 0.0-0.9 % Normal IM GRAN % 0.700 Result Comment: IG% - Immature Granulocytes (promyelocytes, myelocytes and metamyelocytes) > 1% indicates that a LEFT SHIFT is Present. LAB L100.2620 2.0-7.7 X10 3/uL Normal Absolute Neut 4.5 LAB L100.2720 0.83-4.51 X10 3/ul Normal Absolute Lymph 2.83 Performed By: #### L100.0100 #### [facility] [address] [place], [address] COMPREHENSIVE METABOLIC Collected: 01/04/2018 Status: F Source: [facility] 9:30 AM [facility] [place] CODE TESTS RESULT OUT OF RANGE REFERENCE UNITS LAB L501.0100 74-106 mg/dL High GLU 219 Result Comment: Glucose result greater than or equal to 200 mg/dL suggests DIABETES MELLITUS per A.D.A. criteria. Please note revised GLUCOSE reference range effective 2017. LAB L501.1000 7-18 mg/dL High BUN 27 LAB L501.1100 0.55-1.02 mg/dL High CREAT,SERUM 1.51 Result Comment: The validity of the calculated GFR AND GFRAA in patients over 70 years has not been determined. Clinical correlation is essential. LAB L501.1110 >60 mL/min Low EST GFR 37 Result Comment: Non- GFR Calc LAB L501.1115 >60 mL/min Low EST GFR - AA 45 Result Comment: GFR Calc LAB L501.1300 10-20 RATIO Normal BUN/CRE 17.9 LAB L501.1500 6.4-8.2 g/dL T Normal PROT 7.3 LAB L501.1800 3.2-5.0 g/dL Low ALB 3.1 LAB L501.1950 2.2-4.2 g/dL Normal GLOB 4.2 LAB L501.2000 0.9-2.4 RATIO Low A/G 0.7 LAB L501.2200 8.5-10.1 mg/dL CA Normal 9.2 LAB L501.4100 15-37 U/L Normal AST 34 LAB L501.4305 45-117 U/L High ALK P 192 LAB L501.4405 13-56 U/L Normal ALT 29 LAB L501.4600 0.20-1.00 mg/dL T Normal BILI 0.40 LAB L501.5300 136-145 mmol/L NA Normal 140 LAB L501.5600 3.5-5.1 mmol/L K Normal 3.7 LAB L501.5900 98-107 mmol/L CL Normal 103 LAB L501.6100 21.0-32.0 mmol/L Normal CO2 24.0 LAB L501.6200 5-15 Normal GAP 13 Performed By: #### L500.4050 #### [facility] [address] [place], [address] INITAL EVALUATION (1) Observed: 12/31/2017 Status: F Source: [place] - PT 12:15 PM [facility] [place] [facility] [address] [place] [address]. [address] [place], [place] [address] Fax REHABILITATION SERVICES INITIAL EVALUATION MR#: [id number] Acct: [id number] Name: AILYN MÉNDEZ Rep #: [id number] : 1960 57 From: Merced Horvath PT, Cert. MDT Referring Dr.: Naima Strange NP Status: REG R Insurance: [facility] SELF PAY INSURANCE Patient's Visit Information AILYN MÉNDEZ is a 57 year old F referred to Physical Therapy by Naima Strange NP-C with a diagnosis of LOW BACK PAIN. Date of Evaluation: 12/31/17 Physical Therapist: Merced Rashid Cross - Visit Plan Frequency: 2-3x /Week Duration: 4-6 Weeks Plan: AQUATIC THERAPY FOR PAIN RELEIF, POSTURE CORRECTION/STRENGTHENING, INSTRUCTION IN APPROPRIATE BODY MECHANICS AND ACTIVITY MODIFICATIONS. DLS STARTING WITH A NEUTRAL SPINE PROGRESSING ROM TOLERATED. MARCEL LE ROM, STRETCHING AND STRENGTHENING. HEP INSTRUCTION. - Subjective Subjective: Work/Leisure: UNEMPLOYEED. Disability: YES - SINCE 2012 FOR HEART CONDITION. Present symptoms: LOW BACK PAIN. MARCEL LE PAIN, NUMBNESS AND TINGLING TO FEET RIGHT > LEFT. Present since: ON AND OFF FOR YEARS BUT HAS PROGRESSIVELY BECOME WORSE IN THE LAST 18 MONTHS. Pain Scale: WORST 9/10, LEAST 3/10. Currently: 6/10. Commenced as a result of: NO APPARENT REASON. Symptoms at onset: LOW BACK. Worse: WALKING, STANDING, PROLONGED SITTING, TRYING TO LIFT ANYTHING, DOING DISHES, VACUUMING. Better: PAIN PILLS, HEAT. Disturbed sleep: YES. Previous history/Previous treatment: NO BACK SURGERY. PAIN MGMT - ZACK'S ABOUT 4 A YEAR FOR ABOUT [address] CLINE WITH AQUATIC THERAPY RECOMMENDED ABOUT JUNE OF 2017 BUT UNABLE TO COMPLETE DUE TO OPEN WOUND. Coughing/sneezing/straining: POSITIVE. Gait: PATIENT REPORTS SHE WALKS WITH A LIMP ON THE RIGHT LEG SOMETIMES BECAUSE IT HURTS SO BAD. SHE ALSO REPORTS THAT HER HIPS AND LEGS SOMETIMES GIVE OUT ON HER AND SHE FALLS A LOT - WITH LAST FALL BEING ABOUT 3 WEEKS AGO WHEN SHE WAS JUST WALKING DOWN THE [address] AND HER RIGHT LEG JUST GAVE OUT AND SHE WENT DOWN. SOME LEFT WRIST PAIN THAT GOT BETTER AND INCREASED LBP FROM THE FALL. Difficulty initiating urinatin: SOMETIMES. Accidents: MULTIPLES FALLS. NO MVA'S. Unexplained weight loss: NO. Imaging: YES. PER DR. CLINE'S REPORT FEB 2017: 1. XR lumbar spine - diffuse spondylosis. 2. MRI lumbar spine CD 08/25/2016 diffuse spondylosis with capacious central canal. PMH: Medical History: Thyroid mass (Acute). Syncope (Chronic). Vertigo (Chronic). Chronic renal insufficiency (Chronic). Sleep apnea (Chronic). Menieres disease (Chronic). Ulcerative colitis (Chronic). CAD (coronary artery disease) (Chronic). Hyperlipidemia (Chronic). Benign essential HTN (Chronic). DM2 (diabetes mellitus, type 2) (Chronic). Hx of coronary artery disease (Chronic). Surgical History: History of coronary artery stent placement (Chronic 2013). S/P CABG (coronary artery bypass graft) (Chronic 2013). H/O colectomy (Acute). H/O sinus surgery (Acute). H/O total hysterectomy (Acute). gallbdder removal (Acute). history closed fissure (Acute). ileostomy (Acute). left thumb surgery (Acute). lysis of adhesion (Acute). vestibular nerve surgery for Meniere's (Acute). ABD abscess removal (Resolved). OTHER: PATIENT REPORTS DR. CLINE TOLD HER SHE WAS NOT A CANDIDATE FOR SURGERY AT THE TIME OF HER CONSULT BUT TO FOLLOW UP WITH HER NEEDED. PRIOR LEVEL OF FUNCTION: PATIENT REPORTS THAT ABOUT 18 MONTHS AGO BEFORE SHE STARTED GETTING SIGNIFICANTLY WORSE SHE WAS ABLE TO WALK PATHS IN THE [email or web address] FOR EX AND NOW SHE CANE BARELY GROCERY SHOP LEANING ON A CART. SHE REPORTS SHE WAS ABLE TO CLEAN HER HOUSE AND NOW IT ABOUT KILLS ME. SHE REPORTS SHE WAS ABLE TO SIT, WALK, STAND AND SLEEP BETTER ALLOWING HER TO GO AND PLAY CARDS AND DO PUZZLES WITH FRIENDS AND NOW SHE CAN'T. *NO PACEMAKER, METAL IN LOW BACK OR CANCER. SEE 02/23/17 PT EVAL FOR FURTHER HISTORY. PATIENT REPORTS SHE WAS UNABLE TO FOLLOW THROUGH WITH AQUATIC THERAPY AT THAT TIME DUE TO OPEN WOUND. - Objective Sitting/Standing Posture: POOR. SLOUCHED POSTURE WITH FORWARD HEAD AND ROUNDED SHOULDERS. Lordosis: REDUCED. Active Correction of posture: WORSE. Other Observations: INDEP GUARDED GAIT INTO PT WITHOUT ANY AD'S AND NO LOB. DECREASED CADANCE AND INCREASED TRUNK FLEXION. PATIENT IS ABLE TO HEEL AND TOE WALK BUT GREAT DIFFICULTY HEEL WALKING. Motor deficit: MARCEL LE STRENGTH 5/5 WITH MMT'ING EXCEPT HIPS GRADED 4-/5. Sensory deficit: NO. ROM deficit: TIGHT MARCEL HS'S AND GASTROC SOLEUS COMPLEX'S. Reflexes: 2/2 MARCEL LE'S. Dural Signs: POSITIVE MARCLE LE'S. Lumbar mvmt loss: flex - MOD. ext - SUMANTH. R SG - MOD. L SG - MOD. PATIENT C/O INCREASED PAIN IN LOW BACK WITH LUMBAR ROM TESTING ALL PLANES. Core strength: POOR. Palpation: PATIENT IS VERY TENDER WITH LIGHT PALPATION OF THE ENTIRE LUMBO SACRAL AREA TO THE TAILBONE. SHE IS ALSO TENDER OVER THE RIGHT ILIAC CREST REGION. - Goals Goal 1:: DECREASE C/O LOW BACK AND MARCEL LE SX'S Goal Time Frame: 4-6 Weeks Goal 2:: IMPROVE PERSONAL CARE, LIFTING, WALKING, SITTING, STANDING, SLEEP, SOCIAL LIFE, TRAVEL AND HOMEMAKING FUNCTION Goal Time Frame: 4-6 Weeks Goal 3:: INDEP HOME AND OR WATER EX PROGRAM - Rehabilitation Potential Rehabilitation Potential: Fair - Anticipated Interventions Patient/Client Instruction: Educate patient on: Condition, Plan of Care, Risk Factors, Benefits of Fitness Program For the Purpose of:: To improve self management Therapeutic Exercise to Include: Strength training, Body mechanics, Postural training, In an aquatic setting, Active ROM, Dynamic Lumbar Stabilization For the Purpose of:: To decrease pain, To increase ROM, To improve muscle performance and motor function, To increase tolerance to activity/condition/position, To improve ability of physical actions for home/community/work/leisure Thank you for the opportunity to evaluate your patient. For Medicare and Medicare HMO plans, please review the plan of care and approve it. It will need to be FAXED BACK to us at [phone] for Medicare purposes. Please let me know if there are questions or concerns regarding this plan of care. Physician Signature: Date: <Electronically signed by Merced Horvath PT, Cert. MDT> 12/31/17 1215 CC: Shannan Mcgrath MD; Naima Strange NP ADE Signed For Medicare only, by signing this I certify the plan of care. Physicians Signature Date INTERNAL MEDICINE Observed: 12/23/2017 Status: F Source: [facility] OFFICE VISIT 5:02 PM [facility] [place] [facility] [place] [address] [place] [address] OFFICE VISIT Date of Service: 12/20/17 MR#: [id number] Acct: [id number] Name: AILYN MÉNDEZ Rep #: [id number] : 1960 Provider: Shannan Mcgrath MD Age/Sex: 57/F [place] [facility] [place]: Signed Intake Vital Signs12/20/17 Height 5 ft 7 in Intake Visit Reasons: 2 MO FU Chief Complaint: 1 month follow-up Is patient in pain?: No Allergies cinnamon [Cinnamon] Allergy (Verified 12/20/17 11:02) Anaphylaxis Influenza Virus Vaccines Allergy (Verified 12/20/17 11:02) Shortness of breath liraglutide [From Victoza] Allergy (Verified 12/20/17 11:02) Anaphylaxis metronidazole [From Flagyl] Allergy (Verified 12/20/17 11:02) Hives Metronidazole HCl [From Flagyl] Allergy (Verified 12/20/17 11:02) Hives Penicillins Allergy (Verified 12/20/17 11:02) Hives Sulfa (Sulfonamide Antibiotics) Allergy (Verified 12/20/17 11:02) Hives ciprofloxacin [From Cipro] Adverse Reaction (Verified 12/20/17 11:02) Nausea codeine Adverse Reaction (Verified 12/20/17 11:02) Stops Ileostomy dicyclomine HCl [From Bentyl] Adverse Reaction (Verified 12/20/17 11:02) Nausea metformin HCl [From Glucophage] Adverse Reaction (Verified 12/20/17 11:02) Nausea Qeymvku-Krc-Kso Reductase Inhibitor Adverse Reaction (Verified 12/20/17 11:02) Nausea/joints ache Medications Aspirin [Aspirin, Baby] 81 mg PO DAILY@0800 01/21/15 [History Confirmed 12/13/17] Ondansetron HCl [Zofran] 4 mg PO Q8H PRN PRN #20 tab 09/05/16 [Rx Confirmed 12/13/17] Baclofen 10 mg PO QHS 11/24/16 [History Confirmed 12/13/17] loperamide 2 mg tablet 2 mg PO 4X/DAY PRN PRN tab 02/12/17 [History Confirmed 12/13/17] insulin aspart U- 100 100 unit/mL subcutaneous pen 20 - 40 units SC TIDCM ml 03/23/17 [History Confirmed 12/13/17] miconazole nitrate 2 % topical powder 1 applic TOPICAL DAILY 03/23/17 [History Confirmed 12/13/17] tramadol 50 mg tablet 50 mg PO BID PRN PRN tab 05/05/17 [History Confirmed 12/13/17] Hydrocortisone 1 applic TOPICAL BID 06/02/17 [History Confirmed 12/13/17] nitroglycerin 0.4 mg sublingual tablet 0.4 mg SUBLINGUAL Q5M PRN #25 tab 06/08/17 [Rx Confirmed 12/13/17] Furosemide [Lasix] 40 mg PO DAILY 07/07/17 [History Confirmed 12/13/17] insulin glargine (U-100) 100 unit/mL (3 mL) subcutaneous pen 80 units SC BID ml 09/02/17 [History Confirmed 12/13/17] Albuterol Sulfate [Ventolin Hfa] 2 puff INHALATION Q6H PRN 09/06/17 [History Confirmed 12/13/17] Pen Needle, Diabetic [Unifine Pentips Plus] 1 ndl .ROUTE .MEDSUPPLY 09/06/17 [History Confirmed 12/13/17] blood pressure monitor kit See Dose Instructions .ROUTE .MEDSUPPLY #1 ea 09/15/17 [Rx Confirmed 12/13/17] clopidogrel 75 mg tablet 75 mg PO DAILY #30 tab 09/21/17 [Rx Confirmed 12/13/17] isosorbide dinitrate 30 mg tablet 30 mg PO TID #90 tab 09/21/17 [Rx Confirmed 12/13/17] magnesium oxide 400 mg (241.3 mg magnesium) tablet 400 mg PO BID #60 tab 09/21/17 [Rx Confirmed 12/13/17] metoprolol tartrate 50 mg tablet 75 mg PO BID #90 tab 09/21/17 [Rx Confirmed 12/13/17] Handicap Placard See Rx Instructions .ROUTE .COMPLEX 360 Days #1 10/18/17 [Rx Confirmed 12/13/17] buprenorphine 7.5 mcg/hour weekly transdermal patch 1 patch TRANSDERMAL QWEEK 10/18/17 [History Confirmed 12/13/17] omeprazole 20 mg capsule,delayed release 20 mg PO DAILY #90 cap 10/19/17 [Rx Confirmed 12/13/17] pregabalin 50 mg capsule 50 mg PO BID #60 cap 10/19/17 [Rx Confirmed 12/13/17] calcium carbonate 600 mg calcium (1,500 mg) tablet 600 mg PO BID #60 tab 11/30/17 [Rx Confirmed 12/13/17] cholecalciferol (vitamin D3) 2,000 unit capsule 2,000 unit PO DAILY #90 cap 11/30/17 [Rx Confirmed 12/13/17] lorazepam 0.5 mg tablet 0.5 mg PO QHS PRN #30 tab 11/30/17 [Rx Confirmed 12/13/17] FreeStyle Micki 10 Day [place] See Dose Instructions .ROUTE .MEDSUPPLY #1 ea NS 12/14/17 [Rx Confirmed 12/14/17] FreeStyle Micki 10 Day Sensor kit See Dose Instructions .ROUTE .MEDSUPPLY #3 ea NS 12/14/17 [Rx Confirmed 12/14/17] atorvastatin 80 mg tablet 80 mg PO QHS #90 tab 12/20/17 [Rx Confirmed 12/20/17] venlafaxine ER 75 mg capsule,extended release 24 hr 75 mg PO DAILY #60 cap 12/20/17 [Rx Confirmed 12/20/17] Post menopausal: Yes PFSH Medical History Thyroid mass (Acute) Syncope (Chronic) Vertigo (Chronic) Chronic renal insufficiency (Chronic) Sleep apnea (Chronic) Menieres disease (Chronic) Ulcerative colitis (Chronic) CAD (coronary artery disease) (Chronic) Hyperlipidemia (Chronic) Benign essential HTN (Chronic) DM2 (diabetes mellitus, type 2) (Chronic) Hx of coronary artery disease (Chronic) Surgical History History of coronary artery stent placement (Chronic 2012) S/P CABG (coronary artery bypass graft) (Chronic 2012) H/O colectomy (Acute) H/O sinus surgery (Acute) H/O total hysterectomy (Acute) gallbdder removal (Acute) history closed fissure (Acute) ileostomy (Acute) left thumb surgery (Acute) lysis of adhesion (Acute) vestibular nerve surgery for Meniere's (Acute) ABD abscess removal (Resolved) Family History Mother CVA (cerebral vascular accident) Diabetes Brother Heart disease of CAD at 65 Myocardial infarction Pancreatitis Father Cancer lymphomia Lymphoma Grandmother Myocardial infarction of CT in her 70s Sister COPD (chronic obstructive pulmonary disease) Social History Smoking Status: Former smoker how long ago did patient quit smokin, 0.5p/d second hand exposure: Yes alcohol intake: never substance use type: does not use caffeine: Yes Type: coffee eating out: 1-3 times/week what type of physical activity do you participate in: none seatbelt use: always do you feel safe at home: Yes Questionnaire Depression Screen PHQ-2/9 PHQ-2 Over the last 2 weeks, how often have you been bothered by any of the following problems? 1. Little interest or pleasure in doing things: nearly every day 2. Feeling down, depressed, or hopeless: more than half the days Total score: 5 If score is 2 or greater, continue 3. Trouble falling or staying asleep, or sleeping too much: nearly every day 4. Feeling tired or having little energy: nearly every day 5. Poor appetite or overeating: more than half the days 6. Feeling bad about yourself - or that you are a failure or have let yourself and your family down: several days 7. Trouble concentrating on things, such as reading the newspaper or watching television: nearly every day 8. Moving or speaking so slowly that other people could have noticed? - Or the opposite - being so fidgety or restless that you have been moving around a lot more than usual: not at all 9. Thoughts that you would be better off or of hurting yourself in some way: not at all Total score: 17 If you checked off any problems, how difficult have these problems made it for you to do your work, take care of things at home, or get along with other people?: extremely difficult Source: Developed by Drs. Chadwick Silva, Tonya Chavez, Danilo Palmer and colleagues, with an educational sarita from [employer]. Scoring: Total Score Depression Severity Action 1-4 Minimal depression No action needed 5-9 Mild depression Repeat PHQ-9 at follow up 10-14 Moderate depression Make tx plan,consider counseling, fup, prescription HPI HPI Chief Complaint: 1 month follow-up Details: AILYN MÉNDEZ, is a 57 F who presents to the office today for follow-up of her chronic medical conditions. However most concerning at this time is her depression. She has been on Cymbalta she states for many years however lately she has had increasing lack of interest in previously pleasurable things/activities. She denies any significant suicidal ideations or attempt however had a brief suicidal thought but states she had no intention of carrying it out. She has had a suicidal attempt several years back and does not believe she is there at this time. She scored 17 on the PHQ 9 significant for moderately severe depression. ROS Const Constitutional: No anorexia, body ache, chills, fever(s), decreased energy, malaise, night sweats, weight change, sleep problems, other, snoring, weakness, frequent falls, headache(s), abnormal sleep pattern, change in appetite, excessive sweating or fatigue Eyes Eyes: No blurry vision, change in vision, double vision, discharge, dry eyes, bulging eyes, floaters, eye pain, light sensitivity, spots in vision, tunnel vision, other or visual disturbances ENT ENT: No ear pain, ear discharge, ear pressure, hearing loss, tinnitus, dizziness/vertigo, balance problems, nosebleed/epistaxis, nasal congestion, nasal obstruction, nose pain, sinus pressure, sinus pain, nasal discharge, post nasal drip, facial pain, dental pain, dry mouth, bad breath, hoarseness, mouth lesions, mouth pain, sore throat, neck pain, abnormal hearing, headache(s), other, lip swelling, throat swelling, tongue swelling or difficulty swallowing Resp Respiratory: No cough, change in phlegm color, chest congestion, excessive phlegm production, hemoptysis, pain on inspiration, shortness of breath, pain with cough, snoring, stridor, other or wheezing Cardio Cardiology: No chest pain at rest, chest pain with exertion, leg pain with exertion, shortness of breath, dyspnea on exertion, generalized swelling, irregular heart rhythm, lightheadedness, orthopnea, radiating jaw, neck or arm pain, fast heart rate, slow heart rate, palpitations, other or excessive sweating Gastro GI: Positive for abdominal pain; no belching, bloating, coffee ground emesis, constipation, heartburn, difficulty swallowing, feeling full early, excessive flatus, incontinent of stools, Vomiting blood/hematemesis, blood in stool, Black,tarry stools, nausea/dyspepsia, pain with swallowing, vomiting or other Genitourinary-Female: No difficulty urinating, burning urination, painful urination, urinary incontinence, urinary frequency, urinary urgency, urinary hesitancy, urinary retention, blood in urine, Frequent nighttime urination/ nocturia, post void dribbling, suprapubic fullness, side pain, sexual problems, genital lesions, genital itching, hot flashes, abnormal periods, abnormal vaginal bleeding, absent period, painful periods, light periods, heavy periods, difficulty getting , painful intercourse, pelvic pain, vaginal dryness, vaginal odor, Vaginal Itching or other Musc Musculoskeletal: No joint pain, back pain, deformity, joint swelling, limited range of motion, loss of height, muscle cramps, decreased muscle mass, body aches, neck pain, radiating pain into limb, stiffness, other, abnormal walking, numbness, tingling or muscle weakness Skin Skin: No acne, hair loss, change in hair, nail changes, boil, change in skin color, dry skin, redness, excessive hair growth, yellowing of the skin, lesions, rash, skin pain, skin ulcer, sores, skin swelling, wounds, other or itching Breast Breast: No change in breast shape, breast lump, breast pain, breast skin changes, breast swelling, nipple discharge or other Neuro Neurology: No abnormal walking, abnormal hearing, abnormal movements, abnormal speech, unsteady gait/balance, dizziness, weakness, frequent falls, headache(s), lack of coordination, loss of vision, numbness, tingling, visual disturbances, restless legs, fainting, tremor(s), other, behavioral changes, confusion or memory loss Psych Psychiatric: No abnormal sleep pattern, No lack of enjoyment, No anxiety, No behavioral changes, No change in appetite, No confusion, No depression, No difficulty concentrating, No hopelessness, No irritability, No memory loss, No mood swings, No panic attacks, No paranoia, No Thoughts of harming yourself/Others, No hallucinations, No other Endo Endocrine: No change in body appearance, cold intolerance, excessive sweating, fatigue, flushing, heat intolerance, increased thirst/drinking, increased hunger, increased urination or other Aller/Imm Allergy/Immunologic: No food intolerance, itchy eyes, lip swelling, seasonal allergy symptoms, throat swelling, tongue swelling, hives, wheezing or other Jose/Lymp Hematologic/Lymphatic: No easy bleeding, easy bruising, enlarged lymph nodes or other Exam Const General: cooperative, no acute distress Orientation: alert, awake, oriented x3 HENMT Head: atraumatic, normocephalic Ears: hearing grossly normal bilaterally Resp Effort AND Inspection: normal respiratory effort, able to speak in complete sentences Auscultation: Bilateral: Clear to Auscultation Cardio Rate: regular rate Rhythm: regular rhythm Heart Sounds: S2 normal, S1 normal GI Palpation: soft, no hepatosplenomegaly Other: Surgical site clean and dry. Musc Musculoskeletal: No muscle weakness Neuro General: alert, awake, oriented x3, moves all extremities, CN's II-XI intact bilaterally Extrem General: no clubbing, cyanosis or edema Psych Appearance: grossly normal Mental Status: mental status grossly normal Mood: congruent mood Affect: normal affect Assessment AND Plan 1. Depression, unspecified depression type F32.9 Plan Moderately severe. Scored 17 on the PHQ 9 assessment. Appears to have a lot of life stressors at this time including her relationship. Will switch from Cymbalta to Effexor. Start at 75 mg daily and increase to 150 mg after a week. Also referred to behavioral health. Follow-up in 1 month. She was strongly encouraged to call with any concerning symptoms. Orders Referrals: 2. Benign essential HTN I10 Plan Stable. Continue current medications. Follow-up at next visit. This note was generated with [employer] dictation software. It may contain incorrect words, spelling, and punctuation that were not noted in checking the note before signing. Plan Detail Other Medications New: venlafaxine ER (Effexor XR) Take one cap daily x 2 weeks th75 mg PO DAILY 60 caps 0RF en increase to 150mg ( 2 caps ) daily. Refilled: Discontinued: Coding Level of Care Code Off vis,est,level 4 Diagnoses Depression, unspecified depression type F32.9 Benign essential HTN I10 12/23/17 8834 <Electronically signed by Shannan Mcgrath MD> Date Shannan Mcgraht MD Cosigner Signature: Date (if applicable) CC: ENDOCRINOLOGY VISIT Observed: 12/14/2017 Status: F Source: [place] RE[place] 5:09 AM [facility] [place] [address] [place] [address] OFFICE VISIT Date of Service: 12/13/17 MR#: [id number] Acct: [id number] Name: AILYN MÉNDEZ Rep #: [id number] : 1960 Provider: Jane Saez NP Age/Sex: 57/F [place] [facility] [place]: Signed HPI History of present illness Ailyn Méndez is a 57 year old female who presents for follow up of diabetes type 2. Diagnosed in 1989 according to pt. Did the why weight program. She reports she is now eating 4-6 small meals daily . She feels better on small meals due to gastroparesis. Does have meal replacement for breakfast which only contains 16 grams of carb. Had surgery for abdominal wound. Still has some discomfort. Recently had nasal-sinus surgery. Given oral steroids. Reports BG running high last week . Had received cortisone injection in her back for pain relief. This week BG readings better. Reports she did miss several injections for about 2 weeks within last 4-6 weeks. At time of visit: -Pt denies symptoms of hypertensive emergency (CP,SOB,WOLF, or blurred vision) and hypotension(dizziness or lightheadedness) -Pt denies symptoms of hypoglycemia ( sweaty, confusion, anxiety, tremor, hunger, palpitations) and hyperglycemia ( polydipsia, polyuria) -Pt denies potential medication adverse effect. Hypoglycemia Aware of hypoglycemia: When awake Able to self treat low BG: Yes Frequent low Blood sugar: No Has supply of glucagon: No Currently continues on basaglar 80 units twice daily Meal insulin 25-40 units per meal and sliding scale insulin . Checking BG at breakfast, lunch and dinner. Consuming 30 grams of carb for most meals. . She has been using her scale of 150-199=27, 200-259=32, 260-324=42, 325-324=37. . Pt denies difficulty with injections or self monitoring of BG. Denies any signs of infection or irritation at site of injections. Reports taking insulin as directed No meter for review. Has sent off to company for another replacement. Exam Const General: comfortable, no acute distress Nutritional Appearance: well nourished Orientation: oriented x3 HENMT Head: normal to inspection, normocephalic Ears: hearing grossly normal bilaterally Mouth: oral mucosae normal, moist mucous membranes Teeth and gingiva: dentition normal Resp Effort AND Inspection: normal respiratory effort, able to speak in complete sentences, symmetric chest movement Auscultation: Bilateral: Clear to Auscultation Cardio Rate: regular rate Rhythm: regular rhythm Heart Sounds: S1 normal, S2 normal Skin Rashes: rashes noted (left elbow and arm; psoriasis) Diabetic Foot Pulses: L dorsalis pedis pulse: normal, R dorsalis pedis pulse: normal Neuro General: gait normal, moves all extremities Cognition: normal cognition Speech: speech normal Gait: normal gait Extrem General: LLE Psych Appearance: well kempt Mental Status: mental status grossly normal Mood: congruent mood Affect: normal affect Speech and Movement: speech and movement normal Attitude: cooperative Thought Process: normal Thought Content: normal Judgment: judgment good Weight and fatigue symptoms: Denies snoring Cardiopulmonary symptoms: Reports lightheadedness; denies chest pain at rest, dyspnea on exertion or myalgias GI symptoms: Reports diarrhea and nausea/dyspepsia; denies constipation or vomiting Other symptoms: Denies blurry vision or change in vision Intake Vital Signs12/13/17 Height 5 ft 7 in 12/13/17 Weight: 189 lb 6 oz 12/13/17 Body Mass Index (BMI) 29.6 12/13/17 Blood Pressure 107/69 12/13/17 Blood Pressure Location Lt popliteal 12/13/17 Blood Pressure Position Sitting Intake Visit Reasons: Diabetes 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 Accompanied by: Friend Allergies cinnamon [Cinnamon] Allergy (Verified 12/13/17 15:13) Anaphylaxis Influenza Virus Vaccines Allergy (Verified 12/13/17 15:13) Shortness of breath liraglutide [From Victoza] Allergy (Verified 12/13/17 15:13) Anaphylaxis metronidazole [From Flagyl] Allergy (Verified 12/13/17 15:13) Hives Metronidazole HCl [From Flagyl] Allergy (Verified 12/13/17 15:13) Hives Penicillins Allergy (Verified 12/13/17 15:13) Hives Sulfa (Sulfonamide Antibiotics) Allergy (Verified 12/13/17 15:13) Hives ciprofloxacin [From Cipro] Adverse Reaction (Verified 12/13/17 15:13) Nausea codeine Adverse Reaction (Verified 12/13/17 15:13) Stops Ileostomy dicyclomine HCl [From Bentyl] Adverse Reaction (Verified 12/13/17 15:13) Nausea metformin HCl [From Glucophage] Adverse Reaction (Verified 12/13/17 15:13) Nausea Uoutwju-Stz-Ntc Reductase Inhibitor Adverse Reaction (Verified 12/13/17 15:13) Nausea/joints ache Medications Aspirin [Aspirin, Baby] 81 mg PO DAILY@0800 01/21/15 [History Confirmed 12/13/17] Ondansetron HCl [Zofran] 4 mg PO Q8H PRN PRN #20 tab 09/05/16 [Rx Confirmed 12/13/17] Baclofen 10 mg PO QHS 11/24/16 [History Confirmed 12/13/17] loperamide 2 mg tablet 2 mg PO 4X/DAY PRN PRN tab 02/12/17 [History Confirmed 12/13/17] insulin aspart U- 100 100 unit/mL subcutaneous pen 20 - 40 units SC TIDCM ml 03/23/17 [History Confirmed 12/13/17] miconazole nitrate 2 % topical powder 1 applic TOPICAL DAILY 03/23/17 [History Confirmed 12/13/17] tramadol 50 mg tablet 50 mg PO BID PRN PRN tab 05/05/17 [History Confirmed 12/13/17] Hydrocortisone 1 applic TOPICAL BID 06/02/17 [History Confirmed 12/13/17] nitroglycerin 0.4 mg sublingual tablet 0.4 mg SUBLINGUAL Q5M PRN #25 tab 06/08/17 [Rx Confirmed 12/13/17] Furosemide [Lasix] 40 mg PO DAILY 07/07/17 [History Confirmed 12/13/17] insulin glargine (U-100) 100 unit/mL (3 mL) subcutaneous pen 80 units SC BID ml 09/02/17 [History Confirmed 12/13/17] Albuterol Sulfate [Ventolin Hfa] 2 puff INHALATION Q6H PRN 09/06/17 [History Confirmed 12/13/17] Pen Needle, Diabetic [Unifine Pentips Plus] 1 ndl .ROUTE .MEDSUPPLY 09/06/17 [History Confirmed 12/13/17] blood pressure monitor kit See Dose Instructions .ROUTE .MEDSUPPLY #1 ea 09/15/17 [Rx Confirmed 12/13/17] clopidogrel 75 mg tablet 75 mg PO DAILY #30 tab 09/21/17 [Rx Confirmed 12/13/17] isosorbide dinitrate 30 mg tablet 30 mg PO TID #90 tab 09/21/17 [Rx Confirmed 12/13/17] magnesium oxide 400 mg (241.3 mg magnesium) tablet 400 mg PO BID #60 tab 09/21/17 [Rx Confirmed 12/13/17] metoprolol tartrate 50 mg tablet 75 mg PO BID #90 tab 09/21/17 [Rx Confirmed 12/13/17] Handicap Placard See Rx Instructions .ROUTE .COMPLEX 360 Days #1 10/18/17 [Rx Confirmed 12/13/17] buprenorphine 7.5 mcg/hour weekly transdermal patch 1 patch TRANSDERMAL QWEEK 10/18/17 [History Confirmed 12/13/17] atorvastatin 80 mg tablet 80 mg PO QHS #90 tab 10/19/17 [Rx Confirmed 12/13/17] duloxetine 30 mg capsule,delayed release 30 mg PO BID #180 cap 10/19/17 [Rx Confirmed 12/13/17] omeprazole 20 mg capsule,delayed release 20 mg PO DAILY #90 cap 10/19/17 [Rx Confirmed 12/13/17] pregabalin 50 mg capsule 50 mg PO BID #60 cap 10/19/17 [Rx Confirmed 12/13/17] calcium carbonate 600 mg calcium (1,500 mg) tablet 600 mg PO BID #60 tab 11/30/17 [Rx Confirmed 12/13/17] cholecalciferol (vitamin D3) 2,000 unit capsule 2,000 unit PO DAILY #90 cap 11/30/17 [Rx Confirmed 12/13/17] lorazepam 0.5 mg tablet 0.5 mg PO QHS PRN #30 tab 11/30/17 [Rx Confirmed 12/13/17] Nurse's Note: blood sugars : low : 140 high : 600+ PFSH Medical History Thyroid mass (Acute) Syncope (Chronic) Vertigo (Chronic) Chronic renal insufficiency (Chronic) Sleep apnea (Chronic) Menieres disease (Chronic) Ulcerative colitis (Chronic) CAD (coronary artery disease) (Chronic) Hyperlipidemia (Chronic) Benign essential HTN (Chronic) DM2 (diabetes mellitus, type 2) (Chronic) Hx of coronary artery disease (Chronic) Surgical History History of coronary artery stent placement (Chronic 2012) S/P CABG (coronary artery bypass graft) (Chronic 2013) H/O colectomy (Acute) H/O sinus surgery (Acute) H/O total hysterectomy (Acute) gallbdder removal (Acute) history closed fissure (Acute) ileostomy (Acute) left thumb surgery (Acute) lysis of adhesion (Acute) vestibular nerve surgery for Meniere's (Acute) ABD abscess removal (Resolved) Family History Mother CVA (cerebral vascular accident) Diabetes Brother Heart disease of CAD at 65 Myocardial infarction Pancreatitis Father Cancer lymphomia Lymphoma Grandmother Myocardial infarction of CT in her 70s Sister COPD (chronic obstructive pulmonary disease) Social History Smoking Status: Former smoker how long ago did patient quit smokin, 0.5p/d second hand exposure: Yes alcohol intake: never substance use type: does not use caffeine: Yes Type: coffee eating out: 1-3 times/week what type of physical activity do you participate in: none seatbelt use: always do you feel safe at home: Yes ROS Const Constitutional: Positive for excessive sweating, fatigue, night sweats and change in appetite; no anorexia, body ache, chills, fever(s), frequent falls, decreased energy, malaise, weakness, weight change, sleep problems, abnormal sleep pattern, other, headache(s) or snoring Eyes Eyes: No blurry vision, change in vision, double vision, discharge, dry eyes, bulging eyes, floaters, visual disturbances, eye pain, light sensitivity, spots in vision, tunnel vision or other ENT ENT: Positive for nasal discharge; no abnormal hearing, ear pain, ear discharge, ear pressure, hearing loss, tinnitus, dizziness/vertigo, balance problems, nosebleed/epistaxis, nasal congestion, nasal obstruction, nose pain, sinus pressure, sinus pain, post nasal drip, headache(s), facial pain, dental pain, dry mouth, bad breath, hoarseness, lip swelling, mouth lesions, mouth pain, sore throat, tongue swelling, throat swelling, other, difficulty swallowing or neck pain Resp Respiratory: No cough, change in phlegm color, chest congestion, excessive phlegm production, hemoptysis, pain on inspiration, shortness of breath, pain with cough, snoring, stridor, wheezing or other Cardio Cardiology: Positive for excessive sweating, generalized swelling and lightheadedness; no chest pain at rest, chest pain with exertion, leg pain with exertion, shortness of breath, dyspnea on exertion, irregular heart rhythm, orthopnea, radiating jaw, neck or arm pain, fast heart rate, slow heart rate, palpitations or other Gastro GI: Positive for abdominal pain, diarrhea, nausea/dyspepsia and pain with swallowing; no belching, bloating, change in bowel habits, change in stool character, coffee ground emesis, constipation, cramping, heartburn, difficulty swallowing, feeling full early, excessive flatus, incontinent of stools, Vomiting blood/hematemesis, blood in stool, loose stools, Black,tarry stools, vomiting or other Genitourinary-Female: No difficulty urinating, burning urination, painful urination, urinary incontinence, urinary frequency, urinary urgency, urinary hesitancy, urinary retention, blood in urine, Frequent nighttime urination/ nocturia, post void dribbling, suprapubic fullness, side pain, sexual problems, genital lesions, genital itching, hot flashes, abnormal periods, abnormal vaginal bleeding, absent period, painful periods, light periods, heavy periods, difficulty getting , painful intercourse, pelvic pain, vaginal dryness, vaginal odor, Vaginal Itching or other Musc Musculoskeletal: No abnormal walking, joint pain, back pain, deformity, joint swelling, limited range of motion, loss of height, muscle cramps, muscle weakness, decreased muscle mass, body aches, neck pain, numbness, radiating pain into limb, stiffness, tingling or other Skin Skin: No acne, hair loss, change in hair, nail changes, boil, change in skin color, dry skin, redness, excessive hair growth, yellowing of the skin, lesions, itching, rash, skin pain, skin ulcer, sores, skin swelling, wounds or other Breast Breast: No other Neuro Neurology: No frequent falls, weakness, visual disturbances, abnormal hearing, headache(s), abnormal walking, numbness or tingling Psych Psychiatric: No abnormal sleep pattern, Positive for change in appetite Endo Endocrine: Positive for excessive sweating and fatigue; no other Aller/Imm Allergy/Immunologic: No lip swelling, tongue swelling, throat swelling, wheezing or itchy eyes Assessment AND Plan Problems 1. Chronic renal impairment, stage 3 (moderate) N18.3 2. Type 2 diabetes mellitus with complication, with long-term current use of insulin E11.8 3. Mixed hyperlipidemia E78.2 Plan Renal impairment: States she has discussed with PCP and plan is to refer to nephrology beginning of stage 4. Hyperlipidemia: Was taken off fenofibrate . She was told she should not take this but plans to discuss with PCP at her visit which is in 1 week. Concern is high triglycerides. Diabetes: A1c improved. Patient did recently have 2 weeks where she self reports not taking all doses of her insulin. She is being treated for depression and feels it may have been related somewhat but she also just didnt feel good with her surgeries; but reports she is taking insulin as directed at this time. Plan Detail Additional Comments 1. Please schedule follow up in 3 months. 2. Lab work one week before appointment. 3. Discussed importance of regular exercise and recommend starting or continuing a regular exercise program for good health. 4. The patient was encouraged to lose weight for good health 5. The importance of monitoring blood sugar regularly was reviewed. 6. The importance of monitoring the HBA1c level regularly was reviewed. 7. The importance of prper foot care and regularly checking feet to prevent sores and loss of limbs was reviewed. 8. The importance of keeping BP at or below 130/80 to prevent stroke, heart attacks, kidney failure, blindness was reviewed. Spent approximately 30 minutes with patient with over 50% of time spent in discussion and counseling regarding medication adjustment, symptoms and treatment of hypoglycemia, diet adherence, and checking BG before driving. 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 [place] [address] OFFICE VISIT Date of Service: 11/26/17 MR#: [id number] Acct: [id number] Name: AILYN MÉNDEZ Rep #: [id number] : 1960 Provider: Thai Denise MD Age/Sex: 57/F Location: [facility] Status: Signed Intake Intake Visit Reasons: 1 wk FU FNA Rt Thyroid Chief Complaint: 1 month follow-up Allergies cinnamon [Cinnamon] Allergy (Verified 11/19/17 08:53) Anaphylaxis Influenza Virus Vaccines Allergy (Verified 11/19/17 08:53) Shortness of breath liraglutide [From Victoza] Allergy (Verified 11/19/17 08:53) Anaphylaxis metronidazole [From Flagyl] Allergy (Verified 11/19/17 08:53) Hives Metronidazole HCl [From Flagyl] Allergy (Verified 11/19/17 08:53) Hives Penicillins Allergy (Verified 11/19/17 08:53) Hives Sulfa (Sulfonamide Antibiotics) Allergy (Verified 11/19/17 08:53) Hives ciprofloxacin [From Cipro] Adverse Reaction (Verified 11/19/17 08:53) Nausea codeine Adverse Reaction (Verified 11/19/17 08:53) Stops Ileostomy dicyclomine HCl [From Bentyl] Adverse Reaction (Verified 11/19/17 08:53) Nausea metformin HCl [From Glucophage] Adverse Reaction (Verified 11/19/17 08:53) Nausea Zmjvtka-Uvs-Hjs Reductase Inhibitor Adverse Reaction (Verified 11/19/17 08:53) Nausea/joints ache Medications Aspirin [Aspirin, Baby] 81 mg PO DAILY@0800 01/21/15 [History Confirmed 11/19/17] Ondansetron HCl [Zofran] 4 mg PO Q8H PRN PRN #20 tab 09/05/16 [Rx Confirmed 11/19/17] Baclofen 10 mg PO QHS 11/24/16 [History Confirmed 11/19/17] Calcium Carbonate [Calcium] 600 mg PO BID 11/24/16 [History Confirmed 11/19/17] Cholecalciferol (Vitamin D3) [Vitamin D3] 2,000 unit PO DAILY 11/24/16 [History Confirmed 11/19/17] loperamide 2 mg tablet 2 mg PO 4X/DAY PRN PRN tab 02/12/17 [History Confirmed 11/19/17] insulin aspart U-100 100 unit/mL subcutaneous pen 20 - 40 units SC TIDCM ml 03/23/17 [History Confirmed 11/19/17] miconazole nitrate 2 % topical powder 1 applic TOPICAL DAILY 03/23/17 [History Confirmed 11/19/17] tramadol 50 mg tablet 50 mg PO BID PRN PRN tab 05/05/17 [History Confirmed 11/19/17] Hydrocortisone 1 applic TOPICAL BID 06/02/17 [History Confirmed 11/19/17] nitroglycerin 0.4 mg sublingual tablet 0.4 mg SUBLINGUAL Q5M PRN #25 tab 06/08/17 [Rx Confirmed 11/19/17] Furosemide [Lasix] 40 mg PO DAILY 07/07/17 [History Confirmed 11/19/17] insulin glargine (U-100) 100 unit/mL (3 mL) subcutaneous pen 80 units SC BID ml 09/02/17 [History Confirmed 11/19/17] Albuterol Sulfate [Ventolin Hfa] 2 puff INHALATION Q6H PRN 09/06/17 [History Confirmed 11/19/17] Pen Needle, Diabetic [Unifine Pentips Plus] 1 ndl .ROUTE .MEDSUPPLY 09/06/17 [History Confirmed 11/19/17] blood pressure monitor kit See Dose Instructions .ROUTE .MEDSUPPLY #1 ea 09/15/17 [Rx Confirmed 11/19/17] clopidogrel 75 mg tablet 75 mg PO DAILY #30 tab 09/21/17 [Rx Confirmed 11/19/17] isosorbide dinitrate 30 mg tablet 30 mg PO TID #90 tab 09/21/17 [Rx Confirmed 11/19/17] magnesium oxide 400 mg tablet 400 mg PO BID #60 tab 09/21/17 [Rx Confirmed 11/19/17] metoprolol tartrate 50 mg tablet 75 mg PO BID #90 tab 09/21/17 [Rx Confirmed 11/19/17] Handicap Placard See Label Instructions .ROUTE .COMPLEX 360 Days #1 10/18/17 [Rx Confirmed 11/19/17] buprenorphine 7.5 mcg/hour weekly transdermal patch 1 patch TRANSDERMAL QWEEK 10/18/17 [History Confirmed 11/19/17] atorvastatin 80 mg tablet 80 mg PO QHS #90 tab 10/19/17 [Rx Confirmed 11/19/17] duloxetine 30 mg capsule,delayed release 30 mg PO BID #180 cap 10/19/17 [Rx Confirmed 11/19/17] lorazepam 0.5 mg tablet 0.5 mg PO QHS PRN #30 tab 10/19/17 [Rx Confirmed 11/19/17] omeprazole 20 mg capsule,delayed release 20 mg PO DAILY #90 cap 10/19/17 [Rx Confirmed 11/19/17] pregabalin 50 mg capsule 50 mg PO BID #60 cap 10/19/17 [Rx Confirmed 11/19/17] Subjective Details: Patient is status post an ultrasound-guided fine-needle aspiration of her right thyroid gland completed on 11/19/2017. The pathology report came back adequate for evaluation and negative consistent with a colloid nodule. The patient is not complaining of any neck pain no difficulty swallowing no fevers no chills and no bruising. Objective Details: No signs of bruising identified. There is no hard palpable nodules. Thyroid is unremarkable. And there is no lymphadenopathy Assessment AND Plan Problems 1. Multinodular goiter (nontoxic) E04.2 Plan Patient will need to have a yearly thyroid ultrasound. If she did ellipse new nodules that are greater than a centimeter or if the nodule that I previously biopsied grows by more than 20% she will need to have repeat fine-needle aspirations. She can follow-up with me on an as-needed basis. Coding Level of Care Code Off vis,est,level 2 Diagnoses Multinodular goiter (nontoxic) E04.2 11/26/17 0925 <Electronically signed by Thai Verplanck MD> Date Thai Fisher Signature: Date (if applicable) CC: Shannan Mcgrath MD XR FOOT 3V AP/LAT/OBL Observed: 11/25/2017 Status: F Source: [facility] 1:30 PM [facility] * * *Final Report* * * DATE OF EXAM: Nov 25 2017 1:30PM WRX [id number] - XR FOOT 3V AP/LAT/OBL [facility] / PROCEDURE REASON: multiple diagnoses * * * * Physician Interpretation * * * * HISTORY: 57-YEAR-OLD FEMALE WITH Type 2 diabetes mellitus with diabetic polyneuropathy Pain in left toe(s) Pain in right toe(s) . bilateral feet pain on bottoms of feet for a couple days TECHNIQUE: XR FOOT 3V AP/LAT/OBL [facility] Laterality: BILATERAL Number of different views (projections): 3eeach COMPARISON: None RESULT: Right foot: Hallux valgus with bunion deformity. Lateral subluxation sesamoids of the first metatarsal. Mild crossover of the fourth and fifth digit. Enthesophyte on the calcaneus at the insertion of the plantar fascia. No erosions, no fracture. Left foot: Bipartite medial sesamoid first metatarsal. Mild crossover of the fourth and fifth digit. Calcaneal enthesophyte insertion Achilles tendon and plantar fascia. No erosions. No fracture. IMPRESSION: HALLUX VALGUS WITH BUNION DEFORMITY ON THE RIGHT. I LATERAL CALCANEAL ENTHESOPHYTES. Jboss Developer: PSCB Transcribe Date/Time: Nov 25 2017 3:54P Dictated by : DUDLEY OCONNOR MD This examination was interpreted and the report reviewed and electronically signed by: DUDLEY OCONNOR MD on Nov 25 2017 3:56PM EST [id number] PROGRESS Observed: 11/25/2017 Status: COMPLETED Source: [place] 1:12 PM [facility] REPOSITORY HNO ID: [id number] Author: Fidencio Kothari (Tech) Service: (none) Author Type: Tank Filler Type: Progress Notes Filed: 11/25/2017 1:30 PM Note Text: Radiology Service Progress Note PATIENT NAME: Ailyn Méndez DATE OF SERVICE: November 25, 2017 TIME: 1:12 PM PATIENT IDENTITY VERIFICATION COMPLETED USING TWO (2) METHODS: Patient confirmed name verbally and Date of . PATIENT GENDER DATA: Female. status: : No status: NO. PATIENT RELEVANT IMPLANT DATA REVIEWED: Not Applicable RADIOLOGY DEPARTMENT: General X-ray: Exam(s) Completed: Lower Extremity X-Ray(s): Feet, Bilateral and Wt. Bearing: PERIPHERAL IV DATA: Not applicable SIGNED BY: Fidencio Piper November 25, 2017 1:12 PM PROGRESS Observed: 11/25/2017 Status: COMPLETED Source: [place] 12:42 PM [facility] RE[facility] HNO ID: [id number] Author: Willian Vaz Service: (none) Author Type: Physician Type: Progress Notes Filed: 11/25/2017 1:01 PM Note Text: Willian Vaz DPM Department of Podiatry [address] [place] [id number] Dept: [phone] Dept Diabetic Nail Care SUBJECTIVE: Follow up office visit: This 57 year old female presents to clinic c/o painful toenails. Patient states that the nails are especially painful with shoe gear and pressure. Patient also reporting new onset of pain along the balls of foot. Patient states the pain is mostly at night. Patient states that she is not currently taking anything for the pain other than the pain medication she is taking for her back. Patient would like new diabetic shoes. Patient admits to being diabetic and states that their blood sugar was 196 mg/dL this AM. Patient denies claudication type symptoms when walking. No other pedal complaints at this time. No change in medications or medical history since last visit. OBJECTIVE: Patient presents to clinic ambulating in sketchers. Vasc: DP and PT pulses are palpable bilateral. CFT is less than 5 seconds bilateral. Skin temperature is warm to warm proximal to distal bilateral. There is no edema or varicosities noted. Hair growth present. Neuro: Protective sensation is intact to the foot and toes when tested with the 5.07 SWM bilateral. Vibratory sensation is decreased at the hallux bilateral. significant neurological defecits. Derm: Inspection and palpation performed. Nails 1-5 b/l are painful, discolored-yellow, thick, crumbly, dystrophic and with subungal debris. Skin is of normal turgor and texture. Hyperkeratosis right 1st metatarsal. NO ulcerations, scars, verruca or other lesions noted. Ortho: Ankle joint DF is full with the knee extended and full with knee flexed. No pain or crepitus noted. STJ, MTJ ROM are full and free of pain or crepitus. Muscle strength is 5/5 for dorsiflexors, plantarflexors, inverters, everters. Digital deformities include hallux valgus. ASSESSMENT: (E11.42) Diabetic polyneuropathy associated with type 2 diabetes mellitus (HCC) (primary encounter diagnosis) Plan: 1. Patient was seen and evaluated. 2. Nails 1-5 bilateral were debrided in length and thickness. 3. Patient was instructed on the continued importance of diabetic foot care along with proper diet and keeping their blood sugar under control to prevent complications. 4. RTC 3-4 months for DFC (B35.1) Onychomycosis Plan: same as above (M79.675) Pain in toe of left foot Plan: same as above (M79.674) Pain in toe of right foot Plan: same as above Discussed pain in foot. No evidence of swelling or evidence of charcot. She does have bunion and will order diabetic shoes. I will order xrays of b/l feet. Offered boot for right foot as this appears to be more severe but she declined. Will notify her of results. DFE due Apr 2018 Diabetic shoes due DARION Trinh Observed: 11/25/2017 Status: COMPLETED Source: [place] 12:40 PM [facility] REPOSITORY Office Visit (PODIWS) AILYN MÉNDEZ ([id number]) 1960 F Date Time Provider Department 11/25/17 12:40 PM WILLIAN VAZ During your visit today, we recorded the following information about you: Willian Vaz DPM 11/25/2017 1:01 PM Signed Willian Vaz DPM Department of Podiatry [address] [facility] [address] Dept: [phone] Dept Diabetic Nail Care SUBJECTIVE: Follow up office visit: This 57 year old female presents to clinic c/o painful toenails. Patient states that the nails are especially painful with shoe gear and pressure. Patient also reporting new onset of pain along the balls of foot. Patient states the pain is mostly at night. Patient states that she is not currently taking anything for the pain other than the pain medication she is taking for her back. Patient would like new diabetic shoes. Patient admits to being diabetic and states that their blood sugar was 196 mg/dL this AM. Patient denies claudication type symptoms when walking. No other pedal complaints at this time. No change in medications or medical history since last visit. OBJECTIVE: [facility] Vasc: DP and PT pulses are palpable bilateral. CFT is less than 5 seconds bilateral. Skin temperature is warm to warm proximal to distal bilateral. There is no edema or varicosities noted. Hair growth present. Neuro: Protective sensation is intact to the foot and toes when tested with the 5.07 SWM bilateral. Vibratory sensation is decreased at the hallux bilateral. significant neurological defecits. Derm: Inspection and palpation performed. Nails 1-5 b/l are painful, discolored-yellow, thick, crumbly, dystrophic and with subungal debris. Skin is of normal turgor and texture. Hyperkeratosis right 1st metatarsal. NO ulcerations, scars, verruca or other lesions noted. Ortho: Ankle joint DF is full with the knee extended and full with knee flexed. No pain or crepitus noted. STJ, MTJ ROM are full and free of pain or crepitus. Muscle strength is 5/5 for dorsiflexors, plantarflexors, inverters, everters. Digital deformities include hallux valgus. ASSESSMENT: (E11.42) Diabetic polyneuropathy associated with type 2 diabetes mellitus (HCC) (primary encounter diagnosis) Plan: 1. Patient was seen and evaluated. 2. Nails 1-5 bilateral were debrided in length and thickness. 3. Patient was instructed on the continued importance of diabetic foot care along with proper diet and keeping their blood sugar under control to prevent complications. 4. RTC 3-4 months for DFC (B35.1) Onychomycosis Plan: same as above (M79.675) Pain in toe of left foot Plan: same as above (M79.674) Pain in toe of right foot Plan: same as above Discussed pain in foot. No evidence of swelling or evidence of charcot. She does have bunion and will order diabetic shoes. I will order xrays of b/l feet. Offered boot for right foot as this appears to be more severe but she declined. Will notify her of results. DFE due Apr 2018 Diabetic shoes due DARION Trinh RN 11/25/2017 12:58 PM Signed Our office will contact you with the results of your xray Referring Provider: WILLIAN VAZ [[id number]] Allergies As of Date: 11/25/2017 Noted Allergy Reaction CINNAMON 06/06/2008 10 - Anaphylaxis Comments: Airborne and ingested reactions: throat AND lips swell, SOB DICYCLOMINE 08/18/2013 11 - Vomiting AZULFIDINE (SULFASALAZINE) 10/12/2008 4 - Hives CODEINE 06/06/2008 5 - Intolerance Comments: Stops ileostomy functioning-severe constipation FLAGYL (METRONIDAZOLE HCL) 08/18/2013 4 - Hives FLUZONE HIGH-DOSE (PF) (F*01/08/2016 12 - Shortness of Breath Comments: Difficulty breathing, chest pain GLUCOPHAGE (METFORMIN HCL) 09/11/2013 8 - GI Upset INFLUENZA VIRUS VACCINES 12/17/2015 12 - Shortness of Breath 14 - Other: See Comments Comments: Chest pain PENICILLINS 02/12/1999 4 - Hives SULFA (SULFONAMIDE ANTIBIOTICS) 10/12/2008 4 - Hives VICTOZA (LIRAGLUTIDE) 07/22/2016 14 - Other: See Comments Comments: Acute pancreatitis Date Reviewed: 11/25/2017 Reviewed by: Reshma French RN - Fully Assessed Reason for Visit: Diabetic Foot Care [916] Primary Visit Diagnosis:Diabetic polyneuropathy associated with type 2 diabetes mellitus (HCC) [E11.42] Other Visit Diagnoses:Onychomycosis [B35.1] Pain in toe of left foot [M79.675] Pain in toe of right foot [M79.674] Order(s):DIAB SHOE FOR DENSITY INSERT [[id number]] Order #: [id number] XR FOOT GENERAL 3V AP/LAT/OBL BILAT [[id number]] Order #: [id number] FUTURE Prescriptions as of 11/25/2017 Sig: CHOLECALCIFEROL (VITAMIN D3) * Take by mouth once daily. TRAMADOL 50 MG TABLET Take 50 mg by mouth every 6 h* LORAZEPAM 1 MG TABLET Take 1 mg by mouth once daily* PREGABALIN 50 MG CAPSULE Take 50 mg by mouth twice osiel* ATORVASTATIN 80 MG TABLET Take 1 tablet by mouth daily * INSULIN ASPART U-100 100 UNI* Inject 20-40 Units subcutaneo* ONDANSETRON HCL 4 MG TABLET Take 4 mg by mouth as needed.* COMPOUNDED PRESCRIPTION Convatec - Juanita Cohesive Ost* COMPOUNDED PRESCRIPTION Convatec - Esteem 10 draina* DULOXETINE 60 MG CAPSULE,JOIE* Take 1 capsule by mouth twice* COMPOUNDED PRESCRIPTION PEREZ AND NEPHEW Skin- Prep. V4* PEN NEEDLE, DIABETIC 31 GAUGE* Inject 4-6 times daily TRANSCUTANEOUS ELECTRICAL NER* 1 Device as directed. ISOSORBIDE DINITRATE 30 MG TA* Take 1 tablet by mouth three * BLOOD SUGAR DIAGNOSTIC STRIPS TEST BLOOD SUGAR(S)5-6 DAILY.* FUROSEMIDE 20 MG TABLET Take 1 tablet by mouth once d* COMPOUNDED PRESCRIPTION SHARPS IRONER OR PRESSER. Dx: E11.65* COMPOUNDED PRESCRIPTION CONVATEC Allkare Adhesive rem* MAGNESIUM OXIDE 400 MG (241.3* Take 1 tablet by mouth three * Patient taking differently: Take 400 mg by mouth twice da* METOPROLOL TARTRATE 50 MG TAB* Take 1.5 tablets by mouth thr* ASPIRIN 81 MG CHEWABLE TABLET Take 81 mg by mouth once alexander* NITROGLYCERIN 0.4 MG SUBLINGU* Dissolve 0.4 mg under the ton* BUPRENORPHINE 5 MCG/HOUR WEEK* Apply 1 Patch as directed onc* INSULIN GLARGINE (U-100) 100 * Inject 30 units in the mornin* Patient taking differently: Inject 60 units in the mornin* CLOPIDOGREL 75 MG TABLET Take 75 mg by mouth once alexander* Problem List As Of Date 11/25/2017 Noted Resolved Uncontrolled diabetes mellitus (HCC) [E11.65] INVALID FOR*04/04/2015 CAD (coronary artery disease) [I25.10] INVALID FOR* More... S/p total colectomy [Z90.49] INVALID FOR* More... COPD (chronic obstructive pulmonary disease) (H*INVALID FOR* More... Hyperlipidemia [E78.5] INVALID FOR* HTN (hypertension) [I10] INVALID FOR* CHF (congestive heart failure) (HCC) [I50.9] INVALID FOR* Chest pain at rest [R07.9] INVALID FOR* More... ANKITA on CPAP [G47.33, Z99.89] INVALID FOR* Depression with anxiety [F41.8] INVALID FOR* CKD (chronic kidney disease) stage 3, GFR 30-59*INVALID FOR* Pulmonary hypertension, moderate to severe (HCC*INVALID FOR* Migraine [G43.909] INVALID FOR* Ileostomy in place ([facility]) [Z93.2] INVALID FOR* Hypoxemia [R09.02] INVALID FOR* Open wound of abdominal wall, anterior, complic*INVALID FOR*07/05/2015 Pain in right elbow [M25.521] INVALID FOR*03/24/2016 Diabetes mellitus type 2, uncontrolled, without*INVALID FOR* Low back pain without sciatica [M54.5] INVALID FOR* More... Neuropathic pain of chest [M79.2] INVALID FOR* More... Psoriasis [L40.9] INVALID FOR* Lower abdominal pain [R10.30] INVALID FOR* Lower back pain [M54.5] INVALID FOR*01/10/2016 Chronic bilateral low back pain with right-side*INVALID FOR* Lumbar facet arthropathy (HCC) [M47.816] INVALID FOR* BMI 32.0-32.9,adult [Z68.32] INVALID FOR* Fistula of intestine [K63.2] INVALID FOR* More... Crohn's colitis, with fistula (HCC) [K50.113] INVALID FOR* Postoperative pain [G89.18] INVALID FOR* Intra-abdominal abscess (HCC) [K65.1] INVALID FOR* Requires oxygen therapy [Z99.81] INVALID FOR* Hypophosphatemia [E83.39] INVALID FOR* Other instructions from your clinician: Our office will contact you with the results of your xray Disposition: Return in about 3 months (around 02/24/2018) for nail care. Follow-up and Disposition History Recorded Encounter Status:Closed by WILLIAN VAZ DPM on 11/25/17 SURGERY VISIT REPORT Observed: 11/19/2017 Status: F Source: [place] 9:07 AM [facility] [address] [place] [address]. [address] [place] [address] OFFICE VISIT Date of Service: 11/19/17 MR#: [id number] Acct: [id number] Name: AILYN MÉNDEZ Rep #: [id number] : 1960 Provider: Thai Denise MD Age/Sex: 57/F Location: [facility] Status: Signed Intake Intake Visit Reasons: U/S Guided FNA R THYROID Chief Complaint: 1 month follow-up 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: No Is patient in pain?: No Allergies cinnamon [Cinnamon] Allergy (Verified 11/19/17 08:53) Anaphylaxis Influenza Virus Vaccines Allergy (Verified 11/19/17 08:53) Shortness of breath liraglutide [From Victoza] Allergy (Verified 11/19/17 08:53) Anaphylaxis metronidazole [From Flagyl] Allergy (Verified 11/19/17 08:53) Hives Metronidazole HCl [From Flagyl] Allergy (Verified 11/19/17 08:53) Hives Penicillins Allergy (Verified 11/19/17 08:53) Hives Sulfa (Sulfonamide Antibiotics) Allergy (Verified 11/19/17 08:53) Hives ciprofloxacin [From Cipro] Adverse Reaction (Verified 11/19/17 08:53) Nausea codeine Adverse Reaction (Verified 11/19/17 08:53) Stops Ileostomy dicyclomine HCl [From Bentyl] Adverse Reaction (Verified 11/19/17 08:53) Nausea metformin HCl [From Glucophage] Adverse Reaction (Verified 11/19/17 08:53) Nausea Auehrfk-Rpp-Hni Reductase Inhibitor Adverse Reaction (Verified 11/19/17 08:53) Nausea/joints ache Medications Aspirin [Aspirin, Baby] 81 mg PO DAILY@0800 01/21/15 [History Confirmed 11/19/17] Ondansetron HCl [Zofran] 4 mg PO Q8H PRN PRN #20 tab 09/05/16 [Rx Confirmed 11/19/17] Baclofen 10 mg PO QHS 11/24/16 [History Confirmed 11/19/17] Calcium Carbonate [Calcium] 600 mg PO BID 11/24/16 [History Confirmed 11/19/17] Cholecalciferol (Vitamin D3) [Vitamin D3] 2,000 unit PO DAILY 11/24/16 [History Confirmed 11/19/17] loperamide 2 mg tablet 2 mg PO 4X/DAY PRN PRN tab 02/12/17 [History Confirmed 11/19/17] insulin aspart U-100 100 unit/mL subcutaneous pen 20 - 40 units SC TIDCM ml 03/23/17 [History Confirmed 11/19/17] miconazole nitrate 2 % topical powder 1 applic TOPICAL DAILY 03/23/17 [History Confirmed 11/19/17] tramadol 50 mg tablet 50 mg PO BID PRN PRN tab 05/05/17 [History Confirmed 11/19/17] Hydrocortisone 1 applic TOPICAL BID 06/02/17 [History Confirmed 11/19/17] nitroglycerin 0.4 mg sublingual tablet 0.4 mg SUBLINGUAL Q5M PRN #25 tab 06/08/17 [Rx Confirmed 11/19/17] Furosemide [Lasix] 40 mg PO DAILY 07/07/17 [History Confirmed 11/19/17] insulin glargine (U-100) 100 unit/mL (3 mL) subcutaneous pen 80 units SC BID ml 09/02/17 [History Confirmed 11/19/17] Albuterol Sulfate [Ventolin Hfa] 2 puff INHALATION Q6H PRN 09/06/17 [History Confirmed 11/19/17] Pen Needle, Diabetic [Unifine Pentips Plus] 1 ndl .ROUTE .MEDSUPPLY 09/06/17 [History Confirmed 11/19/17] blood pressure monitor kit See Dose Instructions .ROUTE .MEDSUPPLY #1 ea 07/11/18 [Rx Confirmed 11/19/17] clopidogrel 75 mg tablet 75 mg PO DAILY #30 tab 09/21/17 [Rx Confirmed 11/19/17] isosorbide dinitrate 30 mg tablet 30 mg PO TID #90 tab 09/21/17 [Rx Confirmed 11/19/17] magnesium oxide 400 mg tablet 400 mg PO BID #60 tab 09/21/17 [Rx Confirmed 11/19/17] metoprolol tartrate 50 mg tablet 75 mg PO BID #90 tab 09/21/17 [Rx Confirmed 11/19/17] Handicap Placard See Label Instructions .ROUTE .COMPLEX 360 Days #1 10/18/17 [Rx Confirmed 11/19/17] buprenorphine 7.5 mcg/hour weekly transdermal patch 1 patch TRANSDERMAL QWEEK 10/18/17 [History Confirmed 11/19/17] atorvastatin 80 mg tablet 80 mg PO QHS #90 tab 10/19/17 [Rx Confirmed 11/19/17] duloxetine 30 mg capsule,delayed release 30 mg PO BID #180 cap 10/19/17 [Rx Confirmed 11/19/17] lorazepam 0.5 mg tablet 0.5 mg PO QHS PRN #30 tab 10/19/17 [Rx Confirmed 11/19/17] omeprazole 20 mg capsule,delayed release 20 mg PO DAILY #90 cap 10/19/17 [Rx Confirmed 11/19/17] pregabalin 50 mg capsule 50 mg PO BID #60 cap 10/19/17 [Rx Confirmed 11/19/17] PFSH Medical History Thyroid mass (Acute) Syncope (Chronic) Vertigo (Chronic) Chronic renal insufficiency (Chronic) Sleep apnea (Chronic) Menieres disease (Chronic) Ulcerative colitis (Chronic) CAD (coronary artery disease) (Chronic) Hyperlipidemia (Chronic) Benign essential HTN (Chronic) DM2 (diabetes mellitus, type 2) (Chronic) Hx of coronary artery disease (Chronic) History of coronary artery stent placement (Chronic 2012) Surgical History S/P CABG (coronary artery bypass graft) (Chronic 2013) H/O colectomy (Acute) H/O total hysterectomy (Acute) gallbdder removal (Acute) history closed fissure (Acute) ileostomy (Acute) left thumb surgery (Acute) lysis of adhesion (Acute) vestibular nerve surgery for Meniere's (Acute) ABD abscess removal (Resolved) Family History Mother CVA (cerebral vascular accident) Diabetes Brother Heart disease of CAD at 65 Myocardial infarction Pancreatitis Father Cancer lymphomia Lymphoma Grandmother Myocardial infarction of CT in her 70s Sister COPD (chronic obstructive pulmonary disease) Social History Smoking Status: Former smoker how long ago did patient quit smokin, 0.5p/d second hand exposure: Yes alcohol intake: never substance use type: does not use caffeine: Yes Type: coffee eating out: 1-3 times/week what type of physical activity do you participate in: none seatbelt use: always do you feel safe at home: Yes HPI HPI HPI: AILYN MÉNDEZ, is a 57 F who presents to the office today for Office Procedures Fine Needle Aspiration Provider Documentation Details: Preoperative diagnosis: Multinodular goiter Postoperative diagnosis: The same Procedure: Ultrasound-guided fine-needle aspiration of dominant right thyroid nodules. Surgeon: Aide Procedure: Ultrasound of the right thyroid revealed the nodules in question. I prepped the skin with alcohol. I injected 1% lidocaine plain. Under ultrasound guidance I took 3 passes with a 22-gauge needle. These went directly into the nodules and aspirated out significant amount of the fluid from both of these nodules. I did get some cellularity and I did plate these on glass slides. And I did have some fluid that I am sending for cytology. Sterile dressings were applied. Patient tolerated the procedure well. Alert Babak Alert Billing: Yes FNA Thyroid Procedure Time Out Time Out Informed consent given: Yes Consent signed: Yes Time out checklist: patient, procedure, site marked/identified, positioning of patient, supplies available, allergies confirmed, team agrees on procedure Time out staff in room: Yes Time out verified: Yes Time out date: 11/19/17 Time out time: 08:55 Assessment AND Plan Orders Orders: Coding Level of Care Code Attention Recreational Counselor Additional Codes FNA - Fine Needle Aspiration: 79879 Thyroid (25309) 11/19/17 0907 <Electronically signed by Thai Denise MD> Date Thai Denise MD Cosigner Signature: Date (if applicable) CC: FLUID/WASHING Observed: 11/19/2017 Status: F Source: [place] 12:00 AM [facility] [place] Patient: AILYN MÉNDEZ : 1960 (57/F) Acct Num: [id number] Phys: Aide DOMINGUEZ,Thai Unit Num: [id number] Loc: [facility] Specimen: [id number] Received: 11/19/17 - 1125 Spec Type: Fluid TISSUES TISSUES: A. Thyroid gland, NOS B. Thyroid gland, NOS COMMENT A. Benign follicular cells are noted. CYTOLOGY GROSS A - Received is 1 ml of red cloudy fluid labeled with the patient's name and and designated per the requisition as right thyroid. Submitted for cytology preparation including cell block. B - Received are 12 smears labeled with the patient's name and designated per the requisition as right thyroid. Submitted for staining. / 11/19/17 TC:5 CPT: 57696, 90431, 15650 CYTOLOGY STUDY Slides are reviewed. DIAGNOSIS CYTOLOGY A. Fine needle aspiration, right thyroid nodule (cytospin and cell block): Negative for malignancy. B. Fine needle aspiration, right thyroid nodule (smears): Adequate for evaluation. Negative, consistent with colloid nodule. AM:rg 11/22/17 HEADER OPERATION: Ultrasound-guided fine needle aspiration right thyroid PRE-OP DIAGNOSIS: Multinodular goiter E04.2 TISSUE SUBMITTED: A Fluid in syringe right thyroid fluid for cytology, B - Fine needle aspiration right thyroid 12 slides Signed Bennett Bob 11/22/17 <signature on file> Performed By: #### PFLU #### [facility] [place], [address] SURGERY VISIT REPORT Observed: 11/02/2017 Status: F Source: [place] 9:23 AM [facility] [address] [place], [place] [id number] OFFICE VISIT Date of Service: 11/02/17 MR#: [id number] Acct: [id number] Name: AILYN MÉNDEZ Rep #: [id number] : 1960 Provider: Thai Denise MD Age/Sex: 57/F Location: [facility] Status: Signed Intake Vital Signs11/02/17 Height 5 ft 7 in 11/02/17 Weight: 200 lb 11/02/17 Body Mass Index (BMI) 31.3 Intake Visit Reasons: Thyroid Nodules U/S 10/21 Chief Complaint: 1 month follow-up 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: No Is patient in pain?: No Allergies cinnamon [Cinnamon] Allergy (Verified 11/02/17 09:09) Anaphylaxis Influenza Virus Vaccines Allergy (Verified 11/02/17 09:09) Shortness of breath liraglutide [From Victoza] Allergy (Verified 11/02/17 09:09) Anaphylaxis metronidazole [From Flagyl] Allergy (Verified 11/02/17 09:09) Hives Metronidazole HCl [From Flagyl] Allergy (Verified 11/02/17 09:09) Hives Penicillins Allergy (Verified 11/02/17 09:09) Hives Sulfa (Sulfonamide Antibiotics) Allergy (Verified 11/02/17 09:09) Hives ciprofloxacin [From Cipro] Adverse Reaction (Verified 11/02/17 09:09) Nausea codeine Adverse Reaction (Verified 11/02/17 09:09) Stops Ileostomy dicyclomine HCl [From Bentyl] Adverse Reaction (Verified 11/02/17 09:09) Nausea metformin HCl [From Glucophage] Adverse Reaction (Verified 11/02/17 09:09) Nausea Vzerkqc-Ray-Fof Reductase Inhibitor Adverse Reaction (Verified 11/02/17 09:09) Nausea/joints ache Medications Aspirin [Aspirin, Baby] 81 mg PO DAILY@0800 01/21/15 [History Confirmed 11/02/17] Ondansetron HCl [Zofran] 4 mg PO Q8H PRN PRN #20 tab 09/05/16 [Rx Confirmed 11/02/17] Baclofen 10 mg PO QHS 11/24/16 [History Confirmed 11/02/17] Calcium Carbonate [Calcium] 600 mg PO BID 11/24/16 [History Confirmed 11/02/17] Cholecalciferol (Vitamin D3) [Vitamin D3] 2,000 unit PO DAILY 11/24/16 [History Confirmed 11/02/17] loperamide 2 mg tablet 2 mg PO 4X/DAY PRN PRN tab 02/12/17 [History Confirmed 11/02/17] insulin aspart U-100 100 unit/mL subcutaneous pen 20 - 40 units SC TIDCM ml 03/23/17 [History Confirmed 11/02/17] miconazole nitrate 2 % topical powder 1 applic TOPICAL DAILY 03/23/17 [History Confirmed 11/02/17] tramadol 50 mg tablet 50 mg PO BID PRN PRN tab 05/05/17 [History Confirmed 11/02/17] Hydrocortisone 1 applic TOPICAL BID 06/02/17 [History Confirmed 11/02/17] nitroglycerin 0.4 mg sublingual tablet 0.4 mg SUBLINGUAL Q5M PRN #25 tab 06/08/17 [Rx Confirmed 11/02/17] Furosemide [Lasix] 40 mg PO DAILY 07/07/17 [History Confirmed 11/02/17] insulin glargine (U-100) 100 unit/mL (3 mL) subcutaneous pen 80 units SC BID ml 09/02/17 [History Confirmed 11/02/17] Albuterol Sulfate [Ventolin Hfa] 2 puff INHALATION Q6H PRN 09/06/17 [History Confirmed 11/02/17] Pen Needle, Diabetic [Unifine Pentips Plus] 1 ndl .ROUTE .MEDSUPPLY 09/06/17 [History Confirmed 11/02/17] blood pressure monitor kit See Dose Instructions .ROUTE .MEDSUPPLY #1 ea 09/15/17 [Rx Confirmed 11/02/17] clopidogrel 75 mg tablet 75 mg PO DAILY #30 tab 09/21/17 [Rx Confirmed 11/02/17] isosorbide dinitrate 30 mg tablet 30 mg PO TID #90 tab 09/21/17 [Rx Confirmed 11/02/17] magnesium oxide 400 mg tablet 400 mg PO BID #60 tab 09/21/17 [Rx Confirmed 11/02/17] metoprolol tartrate 50 mg tablet 75 mg PO BID #90 tab 09/21/17 [Rx Confirmed 11/02/17] Handicap Placard See Label Instructions .ROUTE .COMPLEX 360 Days #1 10/18/17 [Rx Confirmed 11/02/17] buprenorphine 7.5 mcg/hour weekly transdermal patch 1 patch TRANSDERMAL QWEEK 10/18/17 [History Confirmed 11/02/17] atorvastatin 80 mg tablet 80 mg PO QHS #90 tab 10/19/17 [Rx Confirmed 11/02/17] duloxetine 30 mg capsule,delayed release 30 mg PO BID #180 cap 10/19/17 [Rx Confirmed 11/02/17] lorazepam 0.5 mg tablet 0.5 mg PO QHS PRN #30 tab 10/19/17 [Rx Confirmed 11/02/17] omeprazole 20 mg capsule,delayed release 20 mg PO DAILY #90 cap 10/19/17 [Rx Confirmed 11/02/17] pregabalin 50 mg capsule 50 mg PO BID #60 cap 10/19/17 [Rx Confirmed 11/02/17] [facility] Medical History Thyroid mass (Acute) Syncope (Chronic) Vertigo (Chronic) Chronic renal insufficiency (Chronic) Sleep apnea (Chronic) Menieres disease (Chronic) Ulcerative colitis (Chronic) CAD (coronary artery disease) (Chronic) Hyperlipidemia (Chronic) Benign essential HTN (Chronic) DM2 (diabetes mellitus, type 2) (Chronic) Hx of coronary artery disease (Chronic) History of coronary artery stent placement (Chronic 2012) Surgical History S/P CABG (coronary artery bypass graft) (Chronic 2012) H/O colectomy (Acute) H/O total hysterectomy (Acute) gallbdder removal (Acute) history closed fissure (Acute) ileostomy (Acute) left thumb surgery (Acute) lysis of adhesion (Acute) vestibular nerve surgery for Meniere's (Acute) ABD abscess removal (Resolved) Family History Mother CVA (cerebral vascular accident) Diabetes Brother Heart disease of CAD at 65 Myocardial infarction Pancreatitis Father Cancer lymphomia Lymphoma Grandmother Myocardial infarction of CT in her 70s Sister COPD (chronic obstructive pulmonary disease) Social History Smoking Status: Former smoker how long ago did patient quit smokin, 0.5p/d second hand exposure: Yes alcohol intake: never substance use type: does not use caffeine: Yes Type: coffee eating out: 1-3 times/week what type of physical activity do you participate in: none seatbelt use: always do you feel safe at home: Yes HPI HPI HPI: AILYN MÉNDEZ, is a 57 F who presents to the office today for evaluation of multinodular goiter. Patient had a recent ultrasound of her thyroid gland it [facility] on 10/21/2017. This showed there to be numerous probable colloid cyst of the left and right thyroid lobe. They suggested a one-year follow-up. Patient has never been evaluated for any thyroid malignancies. Patient states that she does have some hoarseness. Her TSH is 2.67 her T4 free is 0.93. ROS General General: Yes fatigue; no weight change, appetite, colon cancer, breast cancer or weakness HEENT HEENT: No difficulty swallowing, eye injury, eye surgery, swollen glands or hoarseness Endo Endocrine: Yes diabetes mellitus; no thyroid disease, thyroid cancer, Hair loss, heat intolerance or cold intolerance Breast Breast: No left breast lump, right breast lump, nipple discharge, breast pain, abnormal mammogram, abnormal US or breast enlargement Musc Musculoskeletal: Yes back problems and arthritis; no rheumatoid arthritis, gout or joint pain Cardio Cardiovascular: Yes heart disease, high blood pressure and heart stent; no murmur, pacemaker, atrial fibrillation, heart attack, palpitations, shortness of breat with exertion or chest pain Psych Psychiatric: Yes depression and anxiety; no hearing voices Resp Respiratory: Yes shortness of breath, Yes sleep apnea, Yes COPD, No cough, No asthma, No emphysema, No wheezing Gastro Gastrointestinal: Yes abdominal pain, Yes nausea or vomiting, Yes diarrhea, Yes gallbladder problem, No constipation, No blood in stool, No acid reflux, No hemorrhoids, No ulcers, No black,tarry stools Jose Hematologic: Yes blood thinners, No blood disorders, No bleeding, No anemia, No blood clots Neuro Neurologic: No system reviewed and no additional complaints, except as docu, No as per HPI, No abnormal walking, No abnormal hearing, No abnormal movements, No abnormal speech, No behavioral changes, No burning sensations, No confusion, No seizure-like activity, No unsteadiness, No dizziness, No localized weakness, No frequent falls, No headache(s), No lack of coordination, No loss of vision, No memory loss, No numbness, No other visual disturbances, No radiating pain, No restless legs, No sensory deficit, No fainting, No tingling, No tremor(s), No weakness, No other Exam Const General: well developed, no acute distress, well hydrated Orientation: oriented to person, oriented to place, oriented to time [facility] Head: normocephalic, atraumatic Ears: external ears normal Mouth: moist mucous membranes Other: Thyroid Exam: No hard palpable nodules are identified on either the right or left side of her thyroid gland. There is no lymphadenopathy identified. Chest Breast Palpation: No nipple discharge Cardio Heart Sounds: no murmurs Assessment AND Plan Problems 1. Multinodular goiter (nontoxic) E04.2 Plan My plan is to perform a fine-needle aspiration of her right thyroid gland. He would be off of her anticoagulation for 5 days prior to this. Wrist benefits have been reviewed with the patient the process of the fine-needle aspiration was reviewed with the patient and the patient agrees to proceed. Coding Level of Care Code Off vis,est,level 3 Diagnoses Multinodular goiter (nontoxic) E04.2 11/02/17 0923 <Electronically signed by Thai Denise MD> Date Thai Denise MD [facility] Signature: Date (if applicable) CC: Shannan Mcgrath MD; Naima Strange NP THYROID Observed: 10/21/2017 Status: F Source: [place] 10:40 AM [facility] [place] [place] Imaging Services [address] [place] [address] Thyroid MR#: [id number] Acct: [id number] Name: AILYN MÉNDEZ Rep #: [id number] : 1960 F 57 From: Pancho Mckeon MD PCP: Shannan Mcgrath MD Status: REG CLI Study: Thyroid Date of Exam: 10/21/17 Exam# [id number] Ordering Dr: Naima Strange [employer]ING SUPERVISOR-C STUDY: THYROID ULTRASOUND REASON FOR EXAM: Female, 57 years old. Nodules on CT scan. TECHNIQUE: Ultrasound evaluation of the thyroid was performed with real-time and static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 wheezing, chest congestion, cough, chest tightness, pain on inspiration, inhalers, increase use of rescue inhalers, snoring, apnea or other Gastro Gastrointestional: Negative bloody stools, change in appetite, difficulty swallowing, reflux, hematemesis, melena stool, loose stool, constipation or other Genitourinary: Negative blood in urine, nocturia, pain with urination or other Musc Musculoskeletal: Negative body pain, back pain, neck pain or other Skin/Breast Skin/Breast: Negative dry skin, itching, rash, unusual bruising, breast lump or other Neuro Neurological: Negative restless legs, confusion, weakness or other Psych Psychocological: Negative abnormal sleep pattern, anxiety, thoughts of hurting self/others, hopelessness or other Lymph Lymphatic: Negative easy bleeding, easy bruising, swollen lymph nodes or other Exam Const Constitutional: Positive conversant, cooperative, in no acute respiratory distress, healthy appearing, well developed, well nourished and good hygiene; negative wearing supplemental oxygen or ill appearing Head Head: Positive normocephalic and atraumatic; negative cyanosis of lips/distal nose, frontal sinus tenderness or maxillary sinus tenderness Eyes Eye: Positive clear conjunctiva; negative nystagmus, scleral abnormality or cataract present Ears Ear: Positive hearing normal and external ears normal; negative hard of hearing Nose Nose: Positive external nose normal, septum normal and clear nasal discharge; negative epistaxis or nasal polyp Mouth Mouth: Positive oral mucosae normal and crowded posterior oropharynx; negative post nasal drip, malodorous breath, no lesions or oral thrush present Mallampati Score: III: Mallampati Score Neck Neck: Positive normal visual inspection, full ROM, trachea midline, thick neck and female neck greater than 37 cm (15 in); negative lymphadenopathy or JVD Chest Wall Chest: Positive normal inspection of the chest and symmetric chest movement; negative crepitus or tenderness Resp lung sounds: Positive clear to auscultation, good air exchange, normal expiratory time and normal respiratory effort; negative wheezes, rhonchi, rales, use of accessory muscles, wheeze present on forced exhalation or dullness to percussion Cardio Cardiac: Positive regular rate, regular rhythm, S1 normal and S2 normal; negative murmur, rub or gallop GI GI: Positive normal to inspection and normal bowel sounds; negative distended, ascites or epigastric tenderness Genitourinary: Positive deferred Musc Musculoskeletal: Positive steady gait; negative using an assistive device for ambulation, kyphosis or scoliosis Skin Pulmonary Skin Exam: Positive intact; negative rash, lesion, ulcers, erythema or dermal atrophy Pulses Pulse: Yes radial pulses present Extremities Extremities: Yes capillary refill normal, No clubbing, No cyanosis, No edema, No stasis dermatitis Neuro Neurologic: Yes conversant, Yes no focal neuro deficits, Yes normal concentration, Yes understands questions, Yes cooperative, Yes normal cognition, Yes normal coordination Lymph Lymphatic: No lymphadenopathy Psych Appearance: Positive grossly normal Mental Status: Positive mental status grossly normal Mood: Positive congruent mood Affect: Positive normal affect Coding Level of Care Code Off vis,est,level 5 Diagnoses Shortness of breath R06.02 ANKITA (obstructive sleep apnea) G47.33 Heart failure with preserved ejection fraction I50.30 Right thyroid nodule E04.[address] of the chest R93.8 10/04/17 1406 <Electronically signed by Davide Baca MD> Date Davide Baca MD Cosigner Signature: Date (if applicable) CC: Shannan Mcgrath MD CNOV Observed: 09/22/2017 Status: COMPLETED Source: [place] 10:40 AM [facility] REPOSITORY Office Visit (PASCUAL) AILYN MÉNDEZ ([id number]) 1960 F Date Time Provider Department 09/22/17 10:40 AM DEAN ROSE During your visit today, we recorded the following information about you: Weight Height 88.9 kg 1.702 m Dean Rose MD [facility] 09/22/2017 11:04 AM Signed Postoperative visit, 08/19/17-Laparotomy and drainage of chronic abscess cavity Return to clinic for: routine follow up Mrs. Méndez said that some days after discharge she was admitted to a local hospital with some infection and pneumonia and her diabetes out of control. She was in the hospital for 4 days and treated with antibiotics and now feels well. The midline wound is healed and there is minimal drainage from the old ileostomy site from which the infected suture material was removed. Tolerating diet- well Appetite -good Bowel function: per stoma, empties bag 3-4 times a day, changes appliance once a week Pain:5 out of 10 Medications: Current Outpatient Prescriptions: Cholecalciferol, Vitamin D3, (VITAMIN D-3) 2,000 unit cap Take by mouth once daily. traMADol (ULTRAM) 50 mg tablet Take 50 mg by mouth every 6 hours as needed. LORazepam (ATIVAN) 1 mg tablet Take 1 mg by mouth once daily. buprenorphine (BUTRANS) 5 mcg/hour Apply 1 Patch as directed once each week. pregabalin (LYRICA) 50 mg capsule Take 50 mg by mouth twice daily. atorvastatin (LIPITOR) 80 mg tablet Take 1 tablet by mouth daily at bedtime. For cholesterol. insulin aspart (NOVOLOG) 100 unit/mL soln Inject 20-40 Units subcutaneously three times daily with meals. ondansetron (ZOFRAN) 4 mg tablet Take 4 mg by mouth as needed. insulin glargine (BASAGLAR KWIKPEN) 100 unit/mL (3 mL) inpn Inject 30 units in the morning and 40 units at night Indications: DIABETES MELLITUS (Patient taking differently: Inject 60 units in the morning and 70 units at night ) DULoxetine (CYMBALTA) 60 mg capsule Take 1 capsule by mouth twice daily. insulin needles, DISPOSABLE, (BD INSULIN PEN NEEDLE UF) 31 gauge x 5/16 ndle Inject 4-6 times daily isosorbide dinitrate (ISORDIL, SORBITRATE) 30 mg tablet Take 1 tablet by mouth three times daily. blood sugar diagnostic (FREESTYLE LITE STRIPS) test strip TEST BLOOD SUGAR(S)5-6 DAILY. DX: DIABETES. INSULIN: YES furosemide (LASIX) 20 mg tablet Take 1 tablet by mouth once daily. magnesium oxide (MAG-OX) 400 mg tablet Take 1 tablet by mouth three times daily. (Patient taking differently: Take 400 mg by mouth twice daily. ) metoprolol tartrate, short acting, 50 mg tablet Take 1.5 tablets by mouth three times daily. aspirin (ASPIRIN CHILDRENS) 81 mg chewable tablet Take 81 mg by mouth once daily. nitroglycerin sublingual (NITROSTAT) 0.4 mg SL tablet Dissolve 0.4 mg under the tongue every 5 minutes as needed. clopidogrel (PLAVIX) 75 mg tablet Take 75 mg by mouth once daily. COMPOUNDED PRESCRIPTION Convatec - Juanita Cohesive Ostomy Seals #[id number]: V45.89; V44.2 COMPOUNDED PRESCRIPTION Convatec - Esteem 10 drainable ostomy pouch #[id number]: V45.89; V44.2 COMPOUNDED PRESCRIPTION PEREZ AND NEPHEW Skin-Prep. V45.89, V44.2. Use as directed twice a week. TENS Units windy 1 Device as directed. COMPOUNDED PRESCRIPTION SHARPS IRONER OR PRESSER. Dx: E11.65. On insulin. COMPOUNDED PRESCRIPTION CONVATEC Allkare Adhesive remover. V45.89, V44.2. Use twice a week as directed. No current facility-administered medications for this visit. Vitals: Ht 170.2 cm (5' 7) Wt 88.9 kg (196 lb) BMI 30.70 kg/m? Abdominal examinations: soft, non-tender, no masses, no hernias. Wound: The midline wound is completely healed. The site of the old ostomy from which the suture material was removed has a small anterior of granulation tissue at the cutaneous level. It has no depth. I destroyed the granulation tissue with a silver nitrate stick and redressed with dry gauze. I discussed this with her. She will call if needed. Dean Rose M.D. Referring Provider: SHANNAN MCGRATH [[id number]] Allergies As of Date: 09/22/2017 Noted Allergy Reaction CINNAMON 06/06/2008 10 - Anaphylaxis Comments: Airborne and ingested reactions: throat AND lips swell, SOB DICYCLOMINE 08/18/2013 11 - Vomiting AZULFIDINE (SULFASALAZINE) 10/12/2008 4 - Hives CODEINE 06/06/2008 5 - Intolerance Comments: Stops ileostomy functioning-severe constipation FLAGYL (METRONIDAZOLE HCL) 08/18/2013 4 - Hives FLUZONE HIGH-DOSE (PF) (F*01/08/2016 12 - Shortness of Breath Comments: Difficulty breathing, chest pain GLUCOPHAGE (METFORMIN HCL) 09/11/2013 8 - GI Upset INFLUENZA VIRUS VACCINES 12/17/2015 12 - Shortness of Breath 14 - Other: See Comments Comments: Chest pain PENICILLINS 02/12/1999 4 - Hives SULFA (SULFONAMIDE ANTIBIOTICS) 10/12/2008 4 - Hives VICTOZA (LIRAGLUTIDE) 07/22/2016 14 - Other: See Comments Comments: Acute pancreatitis Date Reviewed: 09/22/2017 Reviewed by: Neto Vasquez) DANDRE Osborne - Fully Assessed Reason for Visit: Post Op [174] Primary Visit Diagnosis:Chronic wound infection of abdomen, subsequent encounter [S31.109D, L08.9] Prescriptions as of 09/22/2017 Sig: CHOLECALCIFEROL (VITAMIN D3) * Take by mouth once daily. TRAMADOL 50 MG TABLET Take 50 mg by mouth every 6 h* LORAZEPAM 1 MG TABLET Take 1 mg by mouth once daily* BUPRENORPHINE 5 MCG/HOUR WEEK* Apply 1 Patch as directed onc* PREGABALIN 50 MG CAPSULE Take 50 mg by mouth twice osiel* ATORVASTATIN 80 MG TABLET Take 1 tablet by mouth daily * INSULIN ASPART U-100 100 UNI* Inject 20-40 Units subcutaneo* ONDANSETRON HCL 4 MG TABLET Take 4 mg by mouth as needed.* INSULIN GLARGINE (U-100) 100 * Inject 30 units in the mornin* Patient taking differently: Inject 60 units in the mornin* DULOXETINE 60 MG CAPSULE,JOIE* Take 1 capsule by mouth twice* PEN NEEDLE, DIABETIC 31 GAUGE* Inject 4-6 times daily ISOSORBIDE DINITRATE 30 MG TA* Take 1 tablet by mouth three * BLOOD SUGAR DIAGNOSTIC STRIPS TEST BLOOD SUGAR(S)5-6 DAILY.* FUROSEMIDE 20 MG TABLET Take 1 tablet by mouth once d* MAGNESIUM OXIDE 400 MG TABLET Take 1 tablet by mouth three * Patient taking differently: Take 400 mg by mouth twice da* METOPROLOL TARTRATE 50 MG TAB* Take 1.5 tablets by mouth thr* ASPIRIN 81 MG CHEWABLE TABLET Take 81 mg by mouth once alexander* NITROGLYCERIN 0.4 MG SUBLINGU* Dissolve 0.4 mg under the ton* CLOPIDOGREL 75 MG TABLET Take 75 mg by mouth once alexander* COMPOUNDED PRESCRIPTION Convatec - Juanita Cohesive Ost* COMPOUNDED PRESCRIPTION Convatec - Esteem 10 draina* COMPOUNDED PRESCRIPTION PEREZ AND NEPHEW Skin- Prep. V4* TRANSCUTANEOUS ELECTRICAL NER* 1 Device as directed. COMPOUNDED PRESCRIPTION SHARPS IRONER OR PRESSER. Dx: E11.65* COMPOUNDED PRESCRIPTION CONVATEC Allkare Adhesive rem* Medication notes this encounter BUPRENORPHINE 5 MCG/HOUR WEEKLY TRANSDERMAL PATCH >> Neto Osborne LPN, LPN 09/22/2017 10:36 AM >> NETO OSBORNE WedSep 22, 2017 10:36 AM Taking CLOPIDOGREL 75 MG TABLET >> Neto Osborne LPN, LPN 09/22/2017 10:36 AM >> NETO OSBORNE WedSep 22, 2017 10:36 AM Taking Problem List As Of Date 09/22/2017 Noted Resolved Uncontrolled diabetes mellitus (HCC) [E11.65] INVALID FOR*04/04/2015 CAD (coronary artery disease) [I25.10] INVALID FOR* More... S/p total colectomy [Z90.49] INVALID FOR* More... COPD (chronic obstructive pulmonary disease) (H*INVALID FOR* More... Hyperlipidemia [E78.5] INVALID FOR* HTN (hypertension) [I10] INVALID FOR* CHF (congestive heart failure) (HCC) [I50.9] INVALID FOR* Chest pain at rest [R07.9] INVALID FOR* More... ANKITA on CPAP [G47.33, Z99.89] INVALID FOR* Depression with anxiety [F41.8] INVALID FOR* CKD (chronic kidney disease) stage 3, GFR 30-59*INVALID FOR* Pulmonary hypertension, moderate to severe (HCC*INVALID FOR* Migraine [G43.909] INVALID FOR* Ileostomy in place ([facility]) [Z93.2] INVALID FOR* Hypoxemia [R09.02] INVALID FOR* Open wound of abdominal wall, anterior, complic*INVALID FOR*07/05/2015 Pain in right elbow [M25.521] INVALID FOR*03/24/2016 Diabetes mellitus type 2, uncontrolled, without*INVALID FOR* Low back pain without sciatica [M54.5] INVALID FOR* More... Neuropathic pain of chest [M79.2] INVALID FOR* More... 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 Crohn's colitis, with fistula (HCC) [K50.113] INVALID FOR* Postoperative pain [G89.18] INVALID FOR* Intra-abdominal abscess (HCC) [K65.1] INVALID FOR* Requires oxygen therapy [Z99.81] INVALID FOR* Hypophosphatemia [E83.39] INVALID FOR* Encounter Status:Closed by DEAN ROSE MD, FACS on 09/22/17 PROGRESS Observed: 09/22/2017 Status: COMPLETED Source: [place] 10:38 AM [facility] REPOSITORY HNO ID: [id number] Author: Dean Rose Service: (none) Author Type: Physician Type: Progress Notes Filed: 09/22/2017 11:04 AM Note Text: Postoperative visit, 08/19/17-Laparotomy and drainage of chronic abscess cavity Return to clinic for: routine follow up Mrs. Méndez said that some days after discharge she was admitted to a local hospital with some infection and pneumonia and her diabetes out of control. She was in the hospital for 4 days and treated with antibiotics and now feels well. The midline wound is healed and there is minimal drainage from the old ileostomy site from which the infected suture material was removed. Tolerating diet- well Appetite -good Bowel function: per stoma, empties bag 3-4 times a day, changes appliance once a week Pain:5 out of 10 Medications: Current Outpatient Prescriptions: Cholecalciferol, Vitamin D3, (VITAMIN D-3) 2,000 unit cap Take by mouth once daily. traMADol (ULTRAM) 50 mg tablet Take 50 mg by mouth every 6 hours as needed. LORazepam (ATIVAN) 1 mg tablet Take 1 mg by mouth once daily. buprenorphine (BUTRANS) 5 mcg/hour Apply 1 Patch as directed once each week. pregabalin (LYRICA) 50 mg capsule Take 50 mg by mouth twice daily. atorvastatin (LIPITOR) 80 mg tablet Take 1 tablet by mouth daily at bedtime. For cholesterol. insulin aspart (NOVOLOG) 100 unit/mL soln Inject 20-40 Units subcutaneously three times daily with meals. ondansetron (ZOFRAN) 4 mg tablet Take 4 mg by mouth as needed. insulin glargine (BASAGLAR KWIKPEN) 100 unit/mL (3 mL) inpn Inject 30 units in the morning and 40 units at night Indications: DIABETES MELLITUS (Patient taking differently: Inject 60 units in the morning and 70 units at night ) DULoxetine (CYMBALTA) 60 mg capsule Take 1 capsule by mouth twice daily. insulin needles, DISPOSABLE, (BD INSULIN PEN NEEDLE UF) 31 gauge x 5/16 ndle Inject 4-6 times daily isosorbide dinitrate (ISORDIL, SORBITRATE) 30 mg tablet Take 1 tablet by mouth three times daily. blood sugar diagnostic (FREESTYLE LITE STRIPS) test strip TEST BLOOD SUGAR(S)5-6 DAILY. DX: DIABETES. INSULIN: YES furosemide (LASIX) 20 mg tablet Take 1 tablet by mouth once daily. magnesium oxide (MAG-OX) 400 mg tablet Take 1 tablet by mouth three times daily. (Patient taking differently: Take 400 mg by mouth twice daily. ) metoprolol tartrate, short acting, 50 mg tablet Take 1.5 tablets by mouth three times daily. aspirin (ASPIRIN CHILDRENS) 81 mg chewable tablet Take 81 mg by mouth once daily. nitroglycerin sublingual (NITROSTAT) 0.4 mg SL tablet Dissolve 0.4 mg under the tongue every 5 minutes as needed. clopidogrel (PLAVIX) 75 mg tablet Take 75 mg by mouth once daily. COMPOUNDED PRESCRIPTION Convatec - Juanita Cohesive Ostomy Seals #[id number]: V45.89; V44.2 COMPOUNDED PRESCRIPTION Convatec - Esteem 10 drainable ostomy pouch #[id number]: V45.89; V44.2 COMPOUNDED PRESCRIPTION PEREZ AND NEPHEW Skin-Prep. V45.89, V44.2. Use as directed twice a week. TENS Units windy 1 Device as directed. COMPOUNDED PRESCRIPTION SHARPS IRONER OR PRESSER. Dx: E11.65. On insulin. COMPOUNDED PRESCRIPTION CONVATEC Allkare Adhesive remover. V45.89, V44.2. Use twice a week as directed. No current facility-administered medications for this visit. Vitals: Ht 170.2 cm (5' 7) Wt 88.9 kg (196 lb) BMI 30.70 kg/m? Abdominal examinations: soft, non-tender, no masses, no hernias. Wound: The midline wound is completely healed. The site of the old ostomy from which the suture material was removed has a small anterior of granulation tissue at the cutaneous level. It has no depth. I destroyed the granulation tissue with a silver nitrate stick and redressed with dry gauze. I discussed this with her. She will call if needed. Dean Rose M.D. INTERNAL MEDICINE Observed: 09/17/2017 Status: F Source: [place] OFFICE VISIT 12:51 PM [facility] [address] [place] [address] [place] [address] OFFICE VISIT Date of Service: 09/16/17 MR#: [id number] Acct: [id number] Name: AILYN MÉNDEZ Rep #: [id number] : 1960 Provider: Shannan Mcgrath MD Age/Sex: 57/F [place] [facility] [place] Status: Signed Intake Vital Signs09/16/17 Height 5 ft 7 in 09/16/17 Weight: 198 lb 09/16/17 Body Mass Index (BMI) 31.0 09/16/17 Blood Pressure 146/84 Intake Visit Reasons: s/p hsop Chief Complaint: Post hosp Pneumonia AND Sepsis Is patient in pain?: Yes (Post op) Pain scale (1-10): 5 Allergies cinnamon [Cinnamon] Allergy (Verified 09/16/17 14:08) Anaphylaxis Influenza Virus Vaccines Allergy (Verified 09/16/17 14:08) Shortness of breath liraglutide [From Victoza] Allergy (Verified 09/16/17 14:08) Anaphylaxis metronidazole [From Flagyl] Allergy (Verified 09/16/17 14:08) Hives Metronidazole HCl [From Flagyl] Allergy (Verified 09/16/17 14:08) Hives Penicillins Allergy (Verified 09/16/17 14:08) Hives Sulfa (Sulfonamide Antibiotics) Allergy (Verified 09/16/17 14:08) Hives ciprofloxacin [From Cipro] Adverse Reaction (Verified 09/16/17 14:08) Nausea codeine Adverse Reaction (Verified 09/16/17 14:08) Stops Ileostomy dicyclomine HCl [From Bentyl] Adverse Reaction (Verified 09/16/17 14:08) Nausea metformin HCl [From Glucophage] Adverse Reaction (Verified 09/16/17 14:08) Nausea Gxtpzrq-Uyd-Fxe Reductase Inhibitor Adverse Reaction (Verified 09/16/17 14:08) Nausea/joints ache Medications Aspirin [Aspirin, Baby] 81 mg PO DAILY@0800 01/21/15 [History Confirmed 09/16/17] Atorvastatin Calcium [Lipitor] 80 mg PO QHS 01/21/15 [History Confirmed 09/16/17] Clopidogrel Bisulfate [Plavix] 75 mg PO DAILY 01/21/15 [History Confirmed 09/16/17] Magnesium Oxide [Mag-Ox 400] 400 mg PO BID 01/21/15 [History Confirmed 09/16/17] Metoprolol Tartrate [Lopressor (beta esha)] 75 mg PO TID 01/21/15 [History Confirmed 09/16/17] Isosorbide DN [Isordil] 30 mg PO TID 09/03/16 [History Confirmed 09/16/17] Ondansetron HCl [Zofran] 4 mg PO Q8H PRN PRN #20 tab 09/05/16 [Rx Confirmed 09/16/17] Baclofen 10 mg PO QHS 11/24/16 [History Confirmed 09/16/17] Calcium Carbonate [Calcium] 600 mg PO BID 11/24/16 [History Confirmed 09/16/17] Cholecalciferol (Vitamin D3) [Vitamin D3] 2,000 unit PO DAILY 11/24/16 [History Confirmed 09/16/17] loperamide 2 mg tablet 2 mg PO 4X/DAY PRN PRN tab 02/12/17 [History Confirmed 09/16/17] omeprazole 20 mg capsule,delayed release 20 mg PO DAILY 02/12/17 [History Confirmed 09/16/17] insulin aspart U-100 100 unit/mL subcutaneous pen 20 - 40 units SC TIDCM ml 03/23/17 [History Confirmed 09/16/17] miconazole nitrate 2 % topical powder 1 applic TOPICAL DAILY 03/23/17 [History Confirmed 09/16/17] tramadol 50 mg tablet 50 mg PO BID PRN PRN tab 05/05/17 [History Confirmed 09/16/17] Hydrocortisone 1 applic TOPICAL BID 06/02/17 [History Confirmed 09/16/17] nitroglycerin 0.4 mg sublingual tablet 0.4 mg SUBLINGUAL Q5M PRN #25 tab 06/08/17 [Rx Confirmed 09/16/17] buprenorphine 5 mcg/hour weekly transdermal patch 1 patch TRANSDERMAL QWEEK 07/02/17 [History Confirmed 09/16/17] Furosemide [Lasix] 40 mg PO DAILY 07/07/17 [History Confirmed 09/16/17] lorazepam 0.5 mg tablet 0.5 mg PO QHS PRN #30 tab 08/04/17 [Rx Confirmed 09/16/17] pregabalin 50 mg capsule 50 mg PO BID #60 cap 08/04/17 [Rx Confirmed 09/16/17] insulin glargine (U-100) 100 unit/mL (3 mL) subcutaneous pen 80 units SC BID ml 09/02/17 [History Confirmed 09/16/17] Albuterol Sulfate [Ventolin Hfa] 2 puff INHALATION Q6H PRN 09/06/17 [History Confirmed 09/16/17] Duloxetine Hcl [Cymbalta] 30 mg PO BID 09/06/17 [History Confirmed 09/16/17] Pen Needle, Diabetic [Unifine Pentips Plus] 1 ndl .ROUTE .MEDSUPPLY 09/06/17 [History Confirmed 09/16/17] blood pressure monitor kit See Dose Instructions .ROUTE .MEDSUPPLY #1 ea 09/15/17 [Rx Confirmed 09/16/17] doxycycline monohydrate 100 mg capsule 100 mg PO BID 3 Days #6 cap 09/16/17 [Rx Confirmed 09/16/17] PFS Medical History Syncope (Chronic) Vertigo (Chronic) Chronic renal insufficiency (Chronic) Sleep apnea (Chronic) Menieres disease (Chronic) Ulcerative colitis (Chronic) CAD (coronary artery disease) (Chronic) Hyperlipidemia (Chronic) Benign essential HTN (Chronic) DM2 (diabetes mellitus, type 2) (Chronic) Hx of coronary artery disease (Chronic) History of coronary artery stent placement (Chronic 2012) Surgical History S/P CABG (coronary artery bypass graft) (Chronic 2012) H/O colectomy (Acute) H/O total hysterectomy (Acute) gallbdder removal (Acute) history closed fissure (Acute) ileostomy (Acute) left thumb surgery (Acute) lysis of adhesion (Acute) vestibular nerve surgery for Meniere's (Acute) Family History Mother CVA (cerebral vascular accident) Diabetes Brother Heart disease of CAD at 65 Myocardial infarction Pancreatitis Father Cancer lymphomia Lymphoma Grandmother Myocardial infarction of CT in her 70s Sister COPD (chronic obstructive pulmonary disease) Social History Smoking Status: Former smoker how long ago did patient quit smokin, 0.5p/d second hand exposure: Yes alcohol intake: never substance use type: does not use caffeine: Yes Type: coffee eating out: 1-3 times/week what type of physical activity do you participate in: none seatbelt use: always do you feel safe at home: Yes HPI HPI Chief Complaint: Post hosp Pneumonia AND Sepsis Details: AILYN MÉNDEZ, is a 57yo F who presents to the office today for follow-up after recent hospital stay for sepsis secondary to pneumonia. She has done well since hospital discharge however soon after discharge, abdominal drain which was placed during her most recent surgery was accidentally dislodged. She was seen in the emergency room after that episode. She is here to follow-up with her surgeon. She reports feeling of unwell which started today with associated poorly controlled blood sugars. She denies chills, fever, nausea or vomiting. She also denies any change in her bowel habit but states that she just does not feel well. ROS Const Constitutional: No chills, fatigue, fever(s), frequent falls, malaise, weakness, sleep problems or change in appetite Eyes Eyes: No blurry vision, change in vision, double vision, discharge or visual disturbances ENT ENT: No abnormal hearing, ear pain, ear pressure, tinnitus or dizziness/vertigo Resp Respiratory: No cough, shortness of breath or wheezing Cardio Cardiology: Positive for chest pain with exertion; no chest pain at rest, shortness of breath, dyspnea on exertion, generalized swelling, irregular heart rhythm, lightheadedness, orthopnea, fast heart rate or palpitations Gastro GI: Positive for other (Surg site still oozing AND bleeding); no abdominal pain, change in bowel habits, constipation, diarrhea, nausea/dyspepsia or vomiting Genitourinary-Female: No difficulty urinating, burning urination, painful urination, urinary incontinence, urinary frequency, urinary urgency, urinary hesitancy, urinary retention, Frequent nighttime urination/ nocturia, sexual problems, genital lesions, abnormal vaginal bleeding, pelvic pain, vaginal dryness, vaginal odor or Vaginal Itching Musc Musculoskeletal: No joint pain, back pain, joint swelling, limited range of motion, muscle weakness, numbness or tingling Skin Skin: No change in skin color, itching, rash or wounds Breast Breast: No breast lump or breast pain Neuro Neurology: Positive for dizziness; no frequent falls, weakness, abnormal hearing, numbness, tingling, unsteady gait/balance, loss of vision, memory loss or visual disturbances Psych Psychiatric: No memory loss, No anxiety, No change in appetite, No depression, No Thoughts of harming yourself/Others Endo Endocrine: No fatigue, heat intolerance, increased thirst/drinking, increased hunger or increased urination Aller/Imm Allergy/Immunologic: No wheezing, itchy eyes or seasonal allergy symptoms Jose/Lymp Hematologic/Lymphatic: No easy bleeding, easy bruising or enlarged lymph nodes Exam Const General: cooperative, no acute distress Orientation: alert, awake, oriented x3 HENMT Head: atraumatic, normocephalic Ears: hearing grossly normal bilaterally Resp Effort AND Inspection: normal respiratory effort, able to speak in complete sentences Auscultation: Bilateral: Clear to Auscultation Cardio Rate: regular rate Rhythm: regular rhythm Heart Sounds: S2 normal, S1 normal GI Palpation: soft, no hepatosplenomegaly Other: Yellowish drainage noted from surgical site. Musc Musculoskeletal: No muscle weakness Neuro General: alert, awake, oriented x3, moves all extremities, CN's II-XI intact bilaterally Extrem General: no clubbing, cyanosis or edema Psych Appearance: grossly normal Mental Status: mental status grossly normal Mood: congruent mood Affect: normal affect Assessment AND Plan 1. Dehiscence of operative wound, subsequent encounter T81.31XA Plan S/P recent surgery at [facility]. She has done well since surgery. However patient states that her drain was accidentally dislodged a couple of days ago. She has noted increased discharge from the wound since then. She is yet to follow with her surgeon. Restart Doxycycline 100mg BID. Continue for 7 days. Advised to follow up with her [facility] surgeon. Also advised to call the office or go to the ER if she notes any worsening of her symptoms. 2. Sepsis A41.9 Plan Secondary to CAP. She has done well since discharge. Continue breathing treatments aand plan as directed. Follow up with Pulmo in 2 weeks. Will monitor. Plan Detail Other Medications Changed: Follow Up 1 Month Coding Level of Care Code Off vis,est,level 3 Diagnoses Dehiscence of operative wound, subsequent encounter T81.31XA Sepsis A41.9 09/17/17 1251 <Electronically signed by Shannan Mcgrath MD> Date Shannan Mcgrath MD Cosigner Signature: Date (if applicable) CC: EMERGENCY DEPARTMENT Observed: 09/12/2017 Status: F Source: [place] SUMMARY 4:07 PM [facility] Medical Records Department [address] [place] [address] Emergency Department Summary 09/12/17 1240 MR#: [id number] Acct: [id number] Name: AILYN MÉNDEZ Rep #: [id number] : 1960 57 From: Tiffany Alexandre MD PCP: Shannan Mcgrath MD Status: REG ER - ER Visit Summary Date of Service: 09/12/17 Chief Complaint: Right lower quadrant pain History of Present Illness: The patient is a 57 F with history of abdominal fistula repair on August [address] [facility] [address] Rose. Patient states she was changing the dressing last night and her Nicolasa drain pulled out of the right lower quadrant surgical wound. It was scheduled to be pulled at an appointment tomorrow, but now the patient presents complaining of increased right lower quadrant pain. Patient was admitted here September 06 for pneumonia. She is scheduled to finish her antibiotics tomorrow. She states she still feels somewhat short of breath, is significantly improved compared to her initial presentation. Physical Examination: Vital signs are unremarkable. Patient sitting upright in bed no acute distress. She is nontoxic appearing. Head and neck examination is normal. Heart is regular rate and rhythm. Lung sounds are clear. Abdomen is soft with tenderness in the right lower quadrant. There is no guarding or rebound. She has mild wound drainage from the right lower quadrant wound. There is no overlying skin changes or sign of cellulitis. Ileostomy bag is in place in the left lower quadrant with good output. Test Results: CBC is remarkable only for hemoglobin 11.8. Chemistry studies reveal glucose of 214, BUN 26, creatinine 1.20. CT abdomen pelvis with p.o. and IV contrast reveals stable circumferential wall thickening of a segment of small bowel within the anterior abdomen, cannot exclude chronic inflammation. Emergency Department Course and Treatment: Patient is given morphine, Zofran, and IV fluids. Repeat evaluation she is resting comfortably. Test results were discussed with her. At this time I do believe she can be discharged home. She states that she is in too much pain to drive to her doctor's appointment tomorrow and will not be able to make it. I am attempting to contact her surgeon at [facility]. I also left a message with case preparer and liner to see if they can help let patient know how to have her insurance help with transport in the future for doctor's appointments. Patient states she has no one else that can take her to a doctor's appointment tomorrow. Treatment Plan: [] Disposition: Discharge Impression: Postop pain This note was generated with [employer] dictation software. It may contain incorrect words, spelling, and punctuation that were not noted in review of the chart prior to signing ED Disposition - Plan for ED Patient: Chief Complaint: Abd Pain Referrals: Shannan Mcgrath MD [Primary Care Provider] - What to do if you have Problems For any increased pain, shortness of breath, bleeding, nausea or vomiting, chest pain, or any unexpected problems, contact your Primary Care Provider. Call [employer] [facility] ([phone]) or report to the closest Emergency Room. Call 911 if necessary. 09/12/17 1607 <Electronically signed by Tiffany Alexandre MD> Date Tiffany Alexandre MD Cosigner Signature (If Indicated): Date CC: Shannan Mcgrath MD DISCHARGE INSTRUCTION Observed: 09/12/2017 Status: F Source: [place] 3:56 PM [facility] Medical Records Department [address] [place] [address] Discharge Instruction 09/12/17 1555 MR#: [id number] Acct: [id number] Name: AILYN MÉNDEZ Rep #: [id number] : 1960 57 From: Tiffany Alexandre MD PCP: Shannan Mcgrath MD Status: REG ER ED Disposition - Plan for ED Patient: Disposition: Home or Assisted Living Chief Complaint: Abd Pain Instructions: ED Post Op Pain Additional Instructions: Follow-up with your surgeon at [facility] as soon as possible. What to do if you have Problems For any increased pain, shortness of breath, bleeding, nausea or vomiting, chest pain, or any unexpected problems, contact your Primary Care Provider. Call [employer] [facility] ([phone]) or report to the closest Emergency Room. Call 911 if necessary. 09/12/17 1556 <Electronically signed by Tiffany Alexandre MD> Date Tiffany Alexandre MD Cosigner Signature (If Indicated): Date CC: Shannan Mcgrath MD CBC W/DIFF, AUTOMATED Collected: 09/12/2017 Status: C Source: [place] 12:45 PM [facility] TYPE CODE TESTS RESULT OUT OF RANGE REFERENCE UNITS LAB L100.1000 4.4-11.0 K/mm3 Normal WBC 9.7 LAB L100.1200 4.2-5.4 M/mm3 Normal RBC 4.32 LAB L100.1300 12.0-15.0 g/dl Low HGB 11.8 LAB L100.1400 37-47 % Normal HCT 37.2 LAB L100.1500 81-99 fL Normal MCV 86.1 LAB L100.1600 27.0-32.0 pg Normal MCH 27.3 LAB L100.1700 32-36 g/gl Low MCHC 31.7 LAB L100.1810 11.6-14.6 % High RDW CV 15.5 LAB L100.1820 35.1-43.9 fl High RDW SD 48.4 LAB L100.1900 150-450 K/mm3 Normal PLT 334 LAB L100.2000 6.2-12.0 fl Normal MPV 12.0 LAB L100.2100 47-70 % Normal NEUT% 64.4 LAB L100.2200 19-41 % Normal LY% 22.4 LAB L100.2300 0-10 % Normal MONO% 5.5 LAB L100.2400 0-5 % Normal EO% 4.8 LAB L100.2500 0-1 % Normal BASO% 0.5 LAB L100.2550 0.0-0.9 % High IM GRAN % 2.400 Result Comment: IG% - Immature Granulocytes (promyelocytes, myelocytes and metamyelocytes) > 1% indicates that a LEFT SHIFT is Present. LAB L100.2620 2.0-7.7 X10 3/uL Normal Absolute Neut 6.3 LAB L100.2720 0.83-4.51 X10 3/ul Normal Absolute Lymph 2.17 LAB L100.9900 Normal PATH REV Reviewed Result Comment: Neutrophilic left shift. Clinical correlation necessary. Konstantin Whelan M.D. 09/13/17 AMENDED REPORT 09/13/17 1426 PATH REV previously reported as: Elma weir Performed By: #### L100.0100 #### [facility] [address] [place], [address] BASIC METABOLIC Collected: 09/12/2017 Status: F Source: [place] PROFILE (BMP) 12:45 PM [facility] TYPE CODE TESTS RESULT OUT OF RANGE REFERENCE UNITS LAB L501.0100 74-106 mg/dL High GLU 214 Result Comment: Glucose result greater than or equal to 200 mg/dL suggests DIABETES MELLITUS per A.D.A. criteria. Please note revised GLUCOSE reference range effective 2017. LAB L501.1000 7-18 mg/dL High BUN 26 LAB L501.1100 0.55-1.02 mg/dL High CREAT,SERUM 1.20 Result Comment: The validity of the calculated GFR AND GFRAA in patients over 70 years has not been determined. Clinical correlation is essential. LAB L501.1110 >60 mL/min Low EST GFR 49 Result Comment: Non- GFR Calc LAB L501.1115 >60 mL/min Low EST GFR - AA 59 Result Comment: GFR Calc LAB L501.1255 ml/min Normal Estimated CRCL 49.09 LAB L501.1300 10-20 RATIO High BUN/CRE 21.7 LAB L501.2200 8.5-10 mg/dL Normal .1 CA 9.8 LAB L501.5300 136-14 mmol/L Normal 5 NA 139 LAB L501.5600 3.5-5. mmol/L Normal 1 K 4.3 LAB L501.5900 98-107 mmol/L Normal CL 104 LAB L501.6100 21.0-3 mmol/L Normal 2.0 CO2 28.0 LAB L501.6200 5-15 Normal GAP 7 Performed By: #### L500.2500 #### [facility] [address] [facility] [place], [address] ABDOMEN/PELVIS WITH Observed: 09/12/2017 Status: F Source: [place] CONTRAST 12:35 PM [facility] Imaging Services [address] [place] [address] Abdomen/Pelvis WITH Contrast MR#: [id number] Acct: [id number] Name: AILYN MÉNDEZ Rep #: [id number] : 1960 F 57 From: Kayla Hanson MD PCP: Shannan Mcgrath MD Status: REG ER Study: Abdomen/Pelvis WITH Contrast Date of Exam: 09/12/17 Exam# [id number] Ordering Dr: Tiffany Alexandre MD STUDY: CT ABDOMEN AND PELVIS WITH CONTRAST REASON FOR EXAM: Female, 57 years old. Right lower quadrant pain. History of fistula repair. RADIATION DOSAGE (If Supplied By Facility): CTDIvol = ( 19.66 ) mGy, DLP = ( 1221.72 ) mGycm TECHNIQUE: Transaxial images were obtained from the dome of the diaphragm to the symphysis pubis without oral contrast. 100mL ml of Isovue 300 contrast was administered. Sagittal and coronal images were reconstructed. Individualized dose optimization techniques were used for this CT. COMPARISON: September 06, 2017 FINDINGS: The visualized lung bases are unremarkable. The visualized portions of the heart are within normal limits. There is decreased attenuation of the liver consistent with steatosis. There is a stable low-attenuation focus within the liver that may reflect an underlying hemangioma or cyst. There is non-visualization of the gallbladder, which may be secondary to either contraction or a prior cholecystectomy. Normal spleen. Normal pancreas. Normal bilateral adrenal glands. Normal right kidney. Normal left kidney. Normal visualized stomach. The colon is surgically absent. There is a left-sided ileostomy present. There is a stable segment of small bowel within the mid anterior abdomen with circumferential wall thickening and mild adjacent stranding associated with postsurgical changes (image 65 series 2). There is diffuse atherosclerotic calcification of the abdominal aorta, without a demonstrated aneurysm. Normal inferior vena cava. Normal retroperitoneum. Normal urinary bladder. There are postsurgical changes along the anterior abdominal wall. There are diffuse degenerative changes of the visualized lumbar spine. There is a stable sclerotic focus within the right sacrum and L3 vertebra. CT/Abdomen/Pelvis WITH Contrast IMPRESSION: Stable circumferential wall thickening of a segment of small bowel within the anterior abdomen, cannot exclude chronic inflammation. Atherosclerosis. Fatty infiltration of the liver. Electronically Signed: Kayla Hanson MD at 14:49 EDT Tel , Service support , CC: Shannan Mcgrath MD; Tiffany Alexandre MD Jboss Developer: Signed 12 LEAD ELECTROCARDIOGRAM Observed: 09/09/2017 Status: F Source: [place] 2:51 PM [facility] Cardiovascular Services [address] [place] [id number] 12 Lead EKG 09/06/17 1039 MR#: [id number] Acct: [id number] Name: AILYN MÉNDEZ Rep #: [id number] : 1960 57 From: Fish Stone MD Attending Dr: Audrey Vail MD Status: DIS IN Ordering Dr: Leonides Nicole DO Date: 09/06/17 Location: [facility] Sex: F C Admitted: 09/06/17 Test Reason : DYSRHYTHMIA Blood Pressure : / mmHG Vent. Rate : 117 BPM Atrial Rate : 117 BPM P-R Int : 164 ms QRS Dur : 088 ms QT Int : 340 ms P-R-T Axes : 029 -25 106 degrees QTc Int : 474 ms Sinus tachycardia Left ventricular hypertrophy with repolarization abnormality Abnormal ECG Confirmed by FISH STONE MD ([id number]), online content editor KATHERIN HULL ([id number]) on 09/09/2017 2:51:44 PM Referred By: [facility] Confirmed By:FISH STONE MD 09/09/17 1451 Date Fish Stone MD CC: Shannan Mcgrath MD; Audrey Vail MD; Leonides Nicole DO Signed DISCHARGE SUMMARY Observed: 09/08/2017 Status: F Source: [place] 2:35 PM [facility] Medical Records Department [address] [place] [address] Discharge Summary 09/08/17 1051 MR#: [id number] Acct: [id number] Name: AILYN MÉNDEZ Rep #: [id number] : 1960 57 From: uAdrey Vail MD PCP: Shannan Mcgrath MD Status: DIS IN Y Location: [facility]3 [id number] Discharge Date and Diagnosis Date of Admission: 09/06/17 Date of Discharge: 09/08/17 - Primary Discharge Diagnosis sepsis due to health associated pneumonia surgical site infection - Secondary Discharge Diagnosis Chronic Problems (Last Updated 09/02/17 @ 09:12 by Jory Ruiz) Multiple falls (Chronic) Syncope (Chronic) Vertigo (Chronic) Chronic renal insufficiency (Chronic) Sleep apnea (Chronic) Menieres disease (Chronic) Ulcerative colitis (Chronic) Ileostomy status (Chronic) Surgical wound dehiscence (Chronic) CAD (coronary artery disease) (Chronic) Hyperlipidemia (Chronic) Continues on statin without side effect. Reports taking as directed. No recent labs noted. Diarrhea (Chronic) Anemia of chronic renal failure, stage 3 (moderate) (Chronic) Obstructive sleep apnea (Chronic) Psoriasis (Chronic) Heart failure with preserved ejection fraction (Chronic) Benign essential HTN (Chronic) Depression (Chronic) DM2 (diabetes mellitus, type 2) (Chronic) Continues to have abdominal pain and stress. Bp actually fairly good today. Has been scheduled for abdominal surgery at [facility] main campus. Is having some memory loss and has seen neurologist. FCHL (familial combined hyperlipidemia) (Chronic) Ulcerative colitis (Chronic) Status post ileostomy Hx of coronary artery disease (Chronic) Status post CABG, failed, status post multiple stents. Pulmonary hypertension (Chronic) History of coronary artery stent placement (Chronic 2012) Mid LAD and Cx 2012, D1 and prox OM1 2012, Prox SVG, Distal SVG to the Mid OM 2012 S/P CABG (coronary artery bypass graft) (Chronic 2012) JONES to LAD, SVG diag, SVG to OM, SVG to left PDA Chronic respiratory failure (Chronic) COPD (chronic obstructive pulmonary disease) (Chronic) Hospital Course and Treatment Imaging Results: Diagnostic Data Chest X-Ray 09/06/17 10:15 IMPRESSION: Degenerative changes, as described above. No demonstrated acute cardiopulmonary process. Electronically Signed: Dudley Lopez MD at 11:10 EDT , Service support , Abdomen/Pelvis CT 09/06/17 10:17 IMPRESSION: Postoperative changes noted in multiple bowel loops in the central upper abdomen which are adherent to the undersurface of the peritoneum there is associated induration of the subcutaneous fat at this level as well as a fistulous connection to the skin surface. There is no organized abscess. Left lower quadrant ostomy site free of complication a right lower quadrant ostomy site has been surgically closed. No suspicious solid organ abnormality, previous cholecystectomy Degenerative bony changes Electronically Signed: Dudley Lopez MD at 11:51 EDT , Service support , Chest CTA 09/06/17 12:14 IMPRESSION: Minimal increased markings in the posterior aspect of the right upper lobe as it abuts the minor fissure. Electronically Signed: Eric Spencer MD at 13:10 EDT Tel [phone], Service support , Consultations 09/06/17 16:14 Consult: Onc/Wound/dispenser operator Routine Comment: general surgery Operations: None Procedures: None Summary of Care Provided: Patient is a 57-year-old female with an extensive past medical history of CAD status post quadruple bypass and 9 stents, ulcerative colitis status post colectomy and has a ileostomy in place, COPD, hypertension, diabetes, hyperlipidemia, CKD 3 and gastroparesis. She was admitted on 09/06/17 with a complaint of fever shortness of breath and mild abdominal pain for 4 days prior to presentation. She had had surgery for abdominal fistula on 19 August 2017 at [facility]. After removal of pooja by her primary care doctor, she started having above symptoms. She was managed for sepsis due to health associated pneumonia and surgical site infection. She received IV aztreonam and vancomycin in the ED and was continued on IV vancomycin and Zosyn upon admission. white cell Count was initially elevated at 12.1 but trended down to 9.7. Blood Cultures showed no growth after 48 hours. Wound cultures grew 1+ gram-positive cocci suggestive of a diphtheroid likely skin contamination. Patient remained on IV vancomycin and IV Zosyn and improved significantly. She was reviewed by general surgery who did not think that is the slight drainage from the surgical site needed any intervention and advocated that she continued to follow-up with her general surgeon at [facility]. Discharge medications reviewed and reconciled. She remained stable and was discharged on 09/08/2017 on p.o. doxycycline 100 mg twice daily for 5 days. Patient counseled extensively that if she noticed increased drainage, pain, redness and tenderness as well as swelling at site of surgery, she was called her PCP and surgeon immediately. She is to follow-up with her primary care doctor in 1 week and with her general surgeon at [facility] on September 13, 2017. Microbiology Past 72 Hours 09/06/17 22:30 Gram Stain - Final Wound Abcess - Abdominal Wound Culture - Final 09/06/17 10:30 Blood Culture - Preliminary Laboratory Tests Past 24 Hrs WBC 9.7 RBC 3.57 L Hgb 9.7 L Hct 30.4 L MCV 85.2 Discharge Diet: Low fat/ Low Cholesterol Discharge Activity: Return to Normal Activity May resume sexual activity in: No Restrictions Weight Bearing Status: Weight bearing as tolerated Call your doctor if your incision/area has: Continuous Slow Oozing, Sudden Increased Bleeding, Increased Pain/ Swelling, Increased Redness, Foul Smelling Discharge, Swelling at the incision site Call your doctor if you observe: Fever of 101 or Higher Cleanse incision/area with: Keep Dressing Clean AND Dry Home Medications: Medications to take at Discharge Aspirin [Aspirin, Baby] 81 mg PO DAILY@0800 01/21/15 Atorvastatin Calcium [Lipitor] 80 mg PO QHS 01/21/15 Clopidogrel Bisulfate [Plavix] 75 mg PO DAILY 01/21/15 Magnesium Oxide [Mag-Ox 400] 400 mg PO BID 01/21/15 Metoprolol Tartrate [Lopressor (beta esha)] 75 mg PO TID 01/21/15 Isosorbide DN [Isordil] 30 mg PO TID 09/03/16 Ondansetron HCl [Zofran] 4 mg PO Q8H PRN PRN #20 tab 09/05/16 Baclofen 10 mg PO QHS 11/24/16 Calcium Carbonate [Calcium] 600 mg PO BID 11/24/16 Cholecalciferol (Vitamin D3) [Vitamin D3] 2,000 unit PO DAILY 11/24/16 loperamide 2 mg tablet 2 mg PO 4X/DAY PRN PRN tab 02/12/17 omeprazole 20 mg capsule,delayed release 20 mg PO DAILY 02/12/17 insulin aspart U-100 100 unit/mL subcutaneous pen 20 - 40 units SC TIDCM ml 03/23/17 miconazole nitrate 2 % topical powder 1 applic TOPICAL DAILY 03/23/17 tramadol 50 mg tablet 50 mg PO BID PRN PRN tab 05/05/17 Hydrocortisone 1 applic TOPICAL BID 06/02/17 nitroglycerin 0.4 mg sublingual tablet 0.4 mg SUBLINGUAL Q5M PRN #25 tab 06/08/17 buprenorphine 5 mcg/hour weekly transdermal patch 1 patch TRANSDERMAL QWEEK 07/02/17 Furosemide [Lasix] 40 mg PO DAILY 07/07/17 lorazepam 0.5 mg tablet 0.5 mg PO QHS PRN #30 tab 08/04/17 pregabalin 50 mg capsule 50 mg PO BID #60 cap 08/04/17 insulin glargine (U-100) 100 unit/mL (3 mL) subcutaneous pen 80 units SC BID ml 09/02/17 Albuterol Sulfate [Ventolin Hfa] 2 puff INHALATION Q6H PRN 09/06/17 Duloxetine Hcl [Cymbalta] 30 mg PO BID 09/06/17 Pen Needle, Diabetic [Unifine Pentips Plus] 1 ndl .ROUTE .MEDSUPPLY 09/06/17 Doxycycline 100 mg PO BID 5 Days #10 cap 09/08/17 Following Prescrptions Were Given to Patient: Doxycycline 100 mg PO BID 5 Days #10 cap Primary Care Physician: Shannan Mcgrath MD [Primary Care Provider] - Please follow up with your Primary Care Physician in: one week When: please follow up with general surgeon at [facility] on September 13 Disposition: Home Minutes spent on discharge:: 45 Patient Condition:: Good Medical Necessity - Tobacco Use Smoking Status: Former smoker Meaningful Use Info Meaningful Use Diagnoses (Choose all that apply): None applicable Code Visit Inpatient E AND M: 72660 Disch Hosp 09/08/17 1435 <Electronically signed by Audrey Vail MD> Date Audrey Vail MD Cosigner Signature (if applicable): Date CC: Shannan Mcgrath MD; Audrey Vail MD Signed BEDSIDE GLUCOSE Collected: 09/08/2017 Status: F Source: [place] 11:12 AM [facility] [place] TYPE CODE TESTS RESULT OUT OF REFERENCE UNITS RANGE LAB L501.080 70-110 mg/dL High BEDSIDE GLU 314 Result Comment: MANAGEMENT OF PATIENT CARE PER NURSING PROTOCOL Performed By: #### L501.080 #### [facility] Point of Care [address] [place] [address] DISCHARGE INSTRUCTION Observed: 09/08/2017 Status: F Source: [place] 10:51 AM [facility] [place] [facility] Medical Records Department [address] [place] [address] Instructions for Home/Discharge Instructions 09/08/17 1048 MR#: [id number] Acct: [id number] Name: AILYN MÉNDEZ Rep #: [id number] : 1960 57 From: Audrey Vail MD PCP: Shannan Mcgrath MD Status: ADM IN You will use the following diet at home:: Cardiac Your food should be the consistency of: Regular Your liquids should be the consistency of: Regular/Thin Discharge Activity: Return to Normal Activity May resume sexual activity in: No Restrictions Weight Bearing Status: Weight bearing as tolerated Call your doctor if your incision/area has: Continuous Slow Oozing, Sudden Increased Bleeding, Increased Pain/ Swelling, Increased Redness, Foul Smelling Discharge, Swelling at the incision site Call your doctor if you observe: Fever of 101 or Higher Cleanse incision/area with: Keep Dressing Clean AND Dry Allergies/Adverse Reactions: Allergies cinnamon [Cinnamon] Allergy (Verified 09/06/17 09:56) Anaphylaxis Influenza Virus Vaccines Allergy (Verified 09/06/17 09:56) Shortness of breath liraglutide [From Victoza] Allergy (Verified 09/06/17 09:56) Anaphylaxis metronidazole [From Flagyl] Allergy (Verified 09/06/17 09:56) Hives Metronidazole HCl [From Flagyl] Allergy (Verified 09/06/17 09:56) Hives Penicillins Allergy (Verified 09/06/17 09:56) Hives Sulfa (Sulfonamide Antibiotics) Allergy (Verified 09/06/17 09:56) Hives ciprofloxacin [From Cipro] Adverse Reaction (Verified 09/06/17 09:56) Nausea codeine Adverse Reaction (Verified 09/06/17 09:56) Stops Ileostomy dicyclomine HCl [From Bentyl] Adverse Reaction (Verified 09/06/17 09:56) Nausea metformin HCl [From Glucophage] Adverse Reaction (Verified 09/06/17 09:56) Nausea Qcgwiki-Bld-Rhn Reductase Inhibitor Adverse Reaction (Verified 09/06/17 09:56) Nausea/joints ache Medications to take at Discharge Aspirin [Aspirin, Baby] 81 mg PO DAILY@0800 01/21/15 Atorvastatin Calcium [Lipitor] 80 mg PO QHS 01/21/15 Clopidogrel Bisulfate [Plavix] 75 mg PO DAILY 01/21/15 Magnesium Oxide [Mag-Ox 400] 400 mg PO BID 01/21/15 Metoprolol Tartrate [Lopressor (beta esha)] 75 mg PO TID 01/21/15 Isosorbide DN [Isordil] 30 mg PO TID 09/03/16 Ondansetron HCl [Zofran] 4 mg PO Q8H PRN PRN #20 tab 09/05/16 Baclofen 10 mg PO QHS 11/24/16 Calcium Carbonate [Calcium] 600 mg PO BID 11/24/16 Cholecalciferol (Vitamin D3) [Vitamin D3] 2,000 unit PO DAILY 11/24/16 loperamide 2 mg tablet 2 mg PO 4X/DAY PRN PRN tab 02/12/17 omeprazole 20 mg capsule,delayed release 20 mg PO DAILY 02/12/17 insulin aspart U-100 100 unit/mL subcutaneous pen 20 - 40 units SC TIDCM ml 03/23/17 miconazole nitrate 2 % topical powder 1 applic TOPICAL DAILY 03/23/17 tramadol 50 mg tablet 50 mg PO BID PRN PRN tab 05/05/17 Hydrocortisone 1 applic TOPICAL BID 06/02/17 nitroglycerin 0.4 mg sublingual tablet 0.4 mg SUBLINGUAL Q5M PRN #25 tab 06/08/17 buprenorphine 5 mcg/hour weekly transdermal patch 1 patch TRANSDERMAL QWEEK 07/02/17 Furosemide [Lasix] 40 mg PO DAILY 07/07/17 lorazepam 0.5 mg tablet 0.5 mg PO QHS PRN #30 tab 08/04/17 pregabalin 50 mg capsule 50 mg PO BID #60 cap 08/04/17 insulin glargine (U-100) 100 unit/mL (3 mL) subcutaneous pen 80 units SC BID ml 09/02/17 Albuterol Sulfate [Ventolin Hfa] 2 puff INHALATION Q6H PRN 09/06/17 Duloxetine Hcl [Cymbalta] 30 mg PO BID 09/06/17 Pen Needle, Diabetic [Unifine Pentips Plus] 1 ndl .ROUTE .MEDSUPPLY 09/06/17 Doxycycline 100 mg PO BID 5 Days #10 cap 09/08/17 The following prescriptions were given: Doxycycline 100 mg PO BID 5 Days #10 cap Primary Care Physician: Shannan Mcgrath MD [Primary Care Provider] - Please follow up with your Primary Care Physician in: one week Test Results: When: please follow up with general surgeon at [facility] on September 13 Proposed Discharge Date: 09/08/17 09/08/17 1051 <Electronically signed by Audrey Vail MD> Date Audrey Vail MD CC: Shannan Mcgrath MD; Nuha Fairchild MD BEDSIDE GLUCOSE Collected: 09/08/2017 Status: F Source: [place] 6:42 AM [facility] [place] TYPE CODE TESTS RESULT OUT OF REFERENCE UNITS RANGE LAB L501.080 70-110 mg/dL High BEDSIDE GLU 141 Result Comment: MANAGEMENT OF PATIENT CARE PER NURSING PROTOCOL Performed By: #### L501.080 #### [facility] Point of Care [address] [place], [place] [address] CBC W/DIFF, AUTOMATED Collected: 09/08/2017 Status: F Source: [place] 3:24 AM [facility] [place] TYPE CODE TESTS RESULT OUT OF RANGE REFERENCE UNITS LAB L100.1000 4.4-11.0 K/mm3 Normal WBC 9.7 LAB L100.1200 4.2-5.4 M/mm3 Low RBC 3.57 LAB L100.1300 12.0-15.0 g/dl Low HGB 9.7 LAB L100.1400 37-47 % Low HCT 30.4 LAB L100.1500 81-99 fL Normal MCV 85.2 LAB L100.1600 27.0-32.0 pg Normal MCH 27.2 LAB L100.1700 32-36 g/gl Low MCHC 31.9 LAB L100.1810 11.6-14.6 % High RDW CV 14.8 LAB L100.1820 35.1-43.9 fl High RDW SD 46.6 LAB L100.1900 150-450 K/mm3 Normal PLT 270 LAB L100.2000 6.2-12.0 fl Normal MPV 11.6 LAB L100.2100 47-70 % Normal NEUT% 59.7 LAB L100.2200 19-41 % Normal LY% 25.7 LAB L100.2300 0-10 % Normal MONO% 6.4 LAB L100.2400 0-5 % High EO% 6.7 LAB L100.2500 0-1 % Normal BASO% 0.4 LAB L100.2550 0.0-0.9 % High IM GRAN % 1.100 Result Comment: IG% - Immature Granulocytes (promyelocytes, myelocytes and metamyelocytes) > 1% indicates that a LEFT SHIFT is Present. LAB L100.2620 2.0-7.7 X10 3/uL Normal Absolute Neut 5.8 LAB L100.2720 0.83-4.51 X10 3/ul Normal Absolute Lymph 2.49 Performed By: #### L100.0100 #### [facility] [address] [place], [address] VANCOMYCIN, TROUGH Collected: 09/08/2017 Status: F Source: [place] 3:24 AM [facility] [place] Order Comment: Time Medication is to be Given? 0400 TYPE CODE TESTS RESULT OUT OF RANGE REFERENCE UNITS LAB L501.8820 5.0-15.0 ug/mL Normal VANCO, TROUGH 11.6 Result Comment: VANCOMYCIN STANDARED DRUG THERAPY TROUGH LEVEL: 5.0 - 15.0 mg/L VANCOMYCIN HIGH INTENSITY THERAPY TROUGH LEVEL: 15.0 - 20.0 mg/L High Intensity therapy recommended for serious life threatening infections include: - Meningitis -Endocarditis -Pneumonia (Ventilator/Healtcare Associated) -Sepsis PLEASE CONTACT PHARMACY SERVICES (#0303) FOR INTERPRETATION OF RESULTS. Performed By: #### L501.8820 #### [facility] [address] [place], [address] BEDSIDE GLUCOSE Collected: 09/07/2017 Status: F Source: [place] 10:19 PM [facility] [place] TYPE CODE TESTS RESULT OUT OF REFERENCE UNITS RANGE LAB L501.080 70-110 mg/dL High BEDSIDE GLU 332 Result Comment: MANAGEMENT OF PATIENT CARE PER NURSING PROTOCOL Performed By: #### L501.080 #### [facility] Point of Care [address] [place] [address] BASIC METABOLIC Collected: 09/07/2017 Status: F Source: [place] PROFILE ([place]) 9:14 PM [facility] [place] TYPE CODE TESTS RESULT OUT OF RANGE REFERENCE UNITS LAB L501.0100 74-106 mg/dL High GLU 383 Result Comment: Glucose result greater than or equal to 200 mg/dL suggests DIABETES MELLITUS per A.D.A. criteria. Please note revised GLUCOSE reference range effective 2017. LAB L501.1000 7-18 mg/dL Normal BUN 17 LAB L501.1100 0.55-1.02 mg/dL High CREAT,SERUM 1.22 Result Comment: The validity of the calculated GFR AND GFRAA in patients over 70 years has not been determined. Clinical correlation is essential. LAB L501.1110 >60 mL/min Low EST GFR 48 Result Comment: Non- GFR Calc LAB L501.1115 >60 mL/min Low EST GFR - AA 58 Result Comment: GFR Calc LAB L501.1255 ml/min Normal Estimated CRCL 48.28 LAB L501.1300 10-20 RATIO Normal BUN/CRE 13.9 LAB L501.2200 8.5-10 mg/dL Normal .1 CA 8.6 LAB L501.5300 136-14 mmol/L Low 5 NA 135 LAB L501.5600 3.5-5. mmol/L Normal 1 K 4.5 LAB L501.5900 98-107 mmol/L Normal CL 102 LAB L501.6100 21.0-3 mmol/L Normal 2.0 CO2 26.0 LAB L501.6200 5-15 Normal GAP 7 Performed By: #### L500.2500 #### [facility] [address] [place], [place], [address] BEDSIDE GLUCOSE Collected: 09/07/2017 Status: F Source: [place] 5:16 PM [facility] [place] TYPE CODE TESTS RESULT OUT OF REFERENCE UNITS RANGE LAB L501.080 70-110 mg/dL High BEDSIDE GLU 401 Result Comment: MANAGEMENT OF PATIENT CARE PER NURSING PROTOCOL Performed By: #### L501.080 #### [facility] Point of Care [address] [place], [place] [address] BASIC METABOLIC Collected: 09/07/2017 Status: F Source: [place] ([place]) 5:03 PM [facility] [place] TYPE CODE TESTS RESULT OUT OF RANGE REFERENCE UNITS LAB L501.0100 74-106 mg/dL High GLU 405 Result Comment: Glucose result greater than or equal to 200 mg/dL suggests DIABETES MELLITUS per A.D.A. criteria. Please note revised GLUCOSE reference range effective 2017. LAB L501.1000 7-18 mg/dL Normal BUN 17 LAB L501.1100 0.55-1.02 mg/dL High CREAT,SERUM 1.18 Result Comment: The validity of the calculated GFR AND GFRAA in patients over 70 years has not been determined. Clinical correlation is essential. LAB L501.1110 >60 mL/min Low EST GFR 50 Result Comment: Non- GFR Calc LAB L501.1115 >60 mL/min Normal EST GFR - AA 60 Result Comment: GFR Calc LAB L501.1255 ml/min Normal Estimated CRCL 49.92 LAB L501.1300 10-20 RATIO Normal BUN/CRE 14.4 LAB L501.2200 8.5-10 mg/dL Low .1 CA 8.4 LAB L501.5300 136-14 mmol/L Normal 5 NA 136 LAB L501.5600 3.5-5. mmol/L Normal 1 K 4.5 LAB L501.5900 98-107 mmol/L Normal CL 104 LAB L501.6100 21.0-3 mmol/L Normal 2.0 CO2 25.0 LAB L501.6200 5-15 Normal GAP 7 Performed By: #### L500.2500 #### [facility] [address] [place], [address] BASIC METABOLIC Collected: 09/07/2017 Status: F Source: [place] PRO[place] ([facility]) 1:15 PM [facility] [place] TYPE CODE TESTS RESULT OUT OF RANGE REFERENCE UNITS LAB L501.0100 74-106 mg/dL High GLU 367 Result Comment: Glucose result greater than or equal to 200 mg/dL suggests DIABETES MELLITUS per A.D.A. criteria. Please note revised GLUCOSE reference range effective 2017. LAB L501.1000 7-18 mg/dL Normal BUN 17 LAB L501.1100 0.55-1.02 mg/dL High CREAT,SERUM 1.17 Result Comment: The validity of the calculated GFR AND GFRAA in patients over 70 years has not been determined. Clinical correlation is essential. LAB L501.1110 >60 mL/min Low EST GFR 50 Result Comment: Non- GFR Calc LAB L501.1115 >60 mL/min Normal EST GFR - AA 61 Result Comment: GFR Calc LAB L501.1255 ml/min Normal Estimated CRCL 50.35 LAB L501.1300 10-20 RATIO Normal BUN/CRE 14.5 LAB L501.2200 8.5-10 mg/dL Normal .1 CA 8.5 LAB L501.5300 136-14 mmol/L Normal 5 NA 137 LAB L501.5600 3.5-5. mmol/L Normal 1 K 4.5 LAB L501.5900 98-107 mmol/L Normal CL 104 LAB L501.6100 21.0-3 mmol/L Normal 2.0 CO2 26.0 LAB L501.6200 5-15 Normal GAP 7 Performed By: #### L500.2500 #### [facility] [address] [place], [address] BEDSIDE GLUCOSE Collected: 09/07/2017 Status: F Source: [place] 11:27 AM [facility] [place] TYPE CODE TESTS RESULT OUT OF REFERENCE UNITS RANGE LAB L501.080 70-110 mg/dL High BEDSIDE GLU 363 Result Comment: MANAGEMENT OF PATIENT CARE PER NURSING PROTOCOL Performed By: #### L501.080 #### [facility] Point of Care [address] [place] [address] INTERNAL MEDICINE Observed: 09/07/2017 Status: F Source: [place] OFFICE VISIT 9:23 AM [facility] [place] [facility] [address] [place] [address] [place] [address] OFFICE VISIT Date of Service: 09/02/17 MR#: [id number] Acct: [id number] Name: AILYN MÉNDEZ Rep #: [id number] : 1960 Provider: Naima Strange NP Age/Sex: 57/F Location: [facility] Status: Signed Intake Vital Signs09/02/17 Height 5 ft 7 in 09/02/17 Weight: 194 lb 09/02/17 Body Mass Index (BMI) 30.4 09/02/17 Blood Pressure 149/84 Intake Visit Reasons: pooja removal Chief Complaint: Pooja removal Rt abdomen Is patient in pain?: Yes (Wound site ) Allergies cinnamon [Cinnamon] Allergy (Verified 09/06/17 09:56) Anaphylaxis Influenza Virus Vaccines Allergy (Verified 09/06/17 09:56) Shortness of breath liraglutide [From Victoza] Allergy (Verified 09/06/17 09:56) Anaphylaxis metronidazole [From Flagyl] Allergy (Verified 09/06/17 09:56) Hives Metronidazole HCl [From Flagyl] Allergy (Verified 09/06/17 09:56) Hives Penicillins Allergy (Verified 09/06/17 09:56) Hives Sulfa (Sulfonamide Antibiotics) Allergy (Verified 09/06/17 09:56) Hives ciprofloxacin [From Cipro] Adverse Reaction (Verified 09/06/17 09:56) Nausea codeine Adverse Reaction (Verified 09/06/17 09:56) Stops Ileostomy dicyclomine HCl [From Bentyl] Adverse Reaction (Verified 09/06/17 09:56) Nausea metformin HCl [From Glucophage] Adverse Reaction (Verified 09/06/17 09:56) Nausea Ewwaqsf-Asb-Apo Reductase Inhibitor Adverse Reaction (Verified 09/06/17 09:56) Nausea/joints ache Medications Aspirin [Aspirin, Baby] 81 mg PO DAILY@0800 01/21/15 [History Confirmed 09/06/17] Atorvastatin Calcium [Lipitor] 80 mg PO QHS 01/21/15 [History Confirmed 09/06/17] Clopidogrel Bisulfate [Plavix] 75 mg PO DAILY 01/21/15 [History Confirmed 09/06/17] Magnesium Oxide [Mag-Ox 400] 400 mg PO BID 01/21/15 [History Confirmed 09/06/17] Metoprolol Tartrate [Lopressor (beta esha)] 75 mg PO TID 01/21/15 [History Confirmed 09/06/17] Isosorbide DN [Isordil] 30 mg PO TID 09/03/16 [History Confirmed 09/06/17] Ondansetron HCl [Zofran] 4 mg PO Q8H PRN PRN #20 tab 09/05/16 [Rx Confirmed 09/06/17] Baclofen 10 mg PO QHS 11/24/16 [History Confirmed 09/06/17] Calcium Carbonate [Calcium] 600 mg PO BID 11/24/16 [History Confirmed 09/06/17] Cholecalciferol (Vitamin D3) [Vitamin D3] 2,000 unit PO DAILY 11/24/16 [History Confirmed 09/06/17] loperamide 2 mg tablet 2 mg PO 4X/DAY PRN PRN tab 02/12/17 [History Confirmed 09/06/17] omeprazole 20 mg capsule,delayed release 20 mg PO DAILY 02/12/17 [History Confirmed 09/06/17] insulin aspart U-100 100 unit/mL subcutaneous pen 20 - 40 units SC TIDCM ml 03/23/17 [History Confirmed 09/06/17] miconazole nitrate 2 % topical powder 1 applic TOPICAL DAILY 03/23/17 [History Confirmed 09/06/17] tramadol 50 mg tablet 50 mg PO BID PRN PRN tab 05/05/17 [History Confirmed 09/06/17] Hydrocortisone 1 applic TOPICAL BID 06/02/17 [History Confirmed 09/06/17] nitroglycerin 0.4 mg sublingual tablet 0.4 mg SUBLINGUAL Q5M PRN #25 tab 06/08/17 [Rx Confirmed 09/06/17] buprenorphine 5 mcg/hour weekly transdermal patch 1 patch TRANSDERMAL QWEEK 07/02/17 [History Confirmed 09/06/17] Furosemide [Lasix] 40 mg PO DAILY 07/07/17 [History Confirmed 09/06/17] lorazepam 0.5 mg tablet 0.5 mg PO QHS PRN #30 tab 08/04/17 [Rx Confirmed 09/06/17] pregabalin 50 mg capsule 50 mg PO BID #60 cap 08/04/17 [Rx Confirmed 09/06/17] insulin glargine (U-100) 100 unit/mL (3 mL) subcutaneous pen 80 units SC BID ml 09/02/17 [History Confirmed 09/06/17] Albuterol Sulfate [Ventolin Hfa] 2 puff INHALATION Q6H PRN 09/06/17 [History Confirmed 09/06/17] Duloxetine Hcl [Cymbalta] 30 mg PO BID 09/06/17 [History Confirmed 09/06/17] Pen Needle, Diabetic [Unifine Pentips Plus] 1 ndl .ROUTE .MEDSUPPLY 09/06/17 [History Confirmed 09/06/17] [facility] Syncope (Chronic) Vertigo (Chronic) Chronic renal insufficiency (Chronic) Sleep apnea (Chronic) Menieres disease (Chronic) Ulcerative colitis (Chronic) CAD (coronary artery disease) (Chronic) Hyperlipidemia (Chronic) Benign essential HTN (Chronic) DM2 (diabetes mellitus, type 2) (Chronic) Hx of coronary artery disease (Chronic) History of coronary artery stent placement (Chronic 2012) Surgical History S/P CABG (coronary artery bypass graft) (Chronic 2013) H/O colectomy (Acute) H/O total hysterectomy (Acute) gallbdder removal (Acute) history closed fissure (Acute) ileostomy (Acute) left thumb surgery (Acute) lysis of adhesion (Acute) vestibular nerve surgery for Meniere's (Acute) Family History Mother CVA (cerebral vascular accident) Diabetes Brother Heart disease of CAD at 65 Myocardial infarction Pancreatitis Father Cancer lymphomia Lymphoma Grandmother Myocardial infarction of CT in her 70s Sister COPD (chronic obstructive pulmonary disease) Social History Smoking Status: Former smoker how long ago did patient quit smokin, 0.5p/d second hand exposure: Yes alcohol intake: never substance use type: does not use caffeine: Yes Type: coffee eating out: 1-3 times/week what type of physical activity do you participate in: none seatbelt use: always do you feel safe at home: Yes HPI HPI Chief Complaint: Pooja removal Rt abdomen Details: AILYN MÉNDEZ, is a 57 F who presents to the office today for removal of pooja from recent abdominal surgery. Patient has a past medical history as listed above. On August 19, 2017 the patient was seen by Dr. Rose, at the [facility], for drainage of a chronic abscess cavity due to prior surgeries. The patient states that upon discharge from hospital she was given staple removal kit and told that she could remove the pooja and drain on her own. Our office contacted Dr. Rose's office and confirmed that the pooja were to be removed the drain needed to stay. The patient rescheduled an appointment to see Dr. Rose on September 13 for drain removal. She complains of slight discomfort at the surgical site but states the pain is controlled with current pain medication. The patient has an ileostomy denies any problems. She denies any signs or symptoms of systemic infection. The patient otherwise denies any fever, chills, nausea, vomiting, shortness of breath, chest pain or pressure, palpitations, orthopnea, lower extremity edema, syncope or presyncopal episodes. ROS Const Constitutional: No chills, fatigue, fever(s), frequent falls, malaise, weakness, sleep problems or change in appetite Eyes Eyes: No blurry vision, change in vision, double vision, discharge or visual disturbances ENT ENT: No abnormal hearing, ear pain, ear pressure, tinnitus or dizziness/vertigo Resp Respiratory: No cough, shortness of breath or wheezing Cardio Cardiology: No chest pain at rest, chest pain with exertion, shortness of breath, dyspnea on exertion, generalized swelling, irregular heart rhythm, lightheadedness, orthopnea, fast heart rate or palpitations Gastro GI: No abdominal pain, change in bowel habits, constipation, diarrhea, nausea/dyspepsia or vomiting Genitourinary-Female: No difficulty urinating, burning urination, painful urination, urinary incontinence, urinary frequency, urinary urgency, urinary hesitancy, urinary retention, Frequent nighttime urination/ nocturia, sexual problems, genital lesions, abnormal vaginal bleeding, pelvic pain, vaginal dryness, vaginal odor or Vaginal Itching Musc Musculoskeletal: No joint pain, back pain, joint swelling, limited range of motion, muscle weakness, numbness or tingling Skin Skin: Positive for wounds (Surgical site - painful ) and redness; no change in skin color, itching or rash Breast Breast: No breast lump or breast pain Neuro Neurology: No frequent falls, weakness, abnormal hearing, numbness, tingling, unsteady gait/balance, dizziness, loss of vision, memory loss or visual disturbances Psych Psychiatric: No memory loss, No anxiety, No change in appetite, No depression, No Thoughts of harming yourself/Others Endo Endocrine: No fatigue, heat intolerance, increased thirst/drinking, increased hunger or increased urination Aller/Imm Allergy/Immunologic: No wheezing, itchy eyes or seasonal allergy symptoms Jose/Lymp Hematologic/Lymphatic: No easy bleeding, easy bruising or enlarged lymph nodes Exam Const General: cooperative, comfortable, no acute distress Nutritional Appearance: average body habitus, well nourished Orientation: alert, oriented x3 Limitations: mental status not altered Resp Effort AND Inspection: normal respiratory effort, able to speak in complete sentences, normal respiratory pattern, symmetric chest movement, no audible wheezes, no cough Auscultation: Bilateral: Clear to Auscultation Cardio Palpation: normal PMI Rate: regular rate Heart Sounds: S1 normal, S2 normal, normal S1 and S2, no click, no gallops, no murmurs, no rubs GI Inspection: normal to inspection Auscultation: normal bowel sounds, no hyperactive bowel sounds, no hypoactive bowel sounds Palpation: soft, no hepatosplenomegaly, tender (Diffuse tenderness around surgical incisions.) Other: Ileostomy to left lower quadrant, surgical incisions well approximated, without signs of infection, drain present right lower quadrant Musc Musculoskeletal: No muscle weakness Skin General: no rashes or lesions noted, elasticity normal, turgor normal Lesions: no lesions Rashes: no rashes Wounds: wounds noted right abdomen: pooja (5 pooja removed. One staple left in place above drain) removed removed, margins well approximated well approximated, drainage (Scant amount noted around drain site) serosanguinous and without odor mid abdomen: pooja (7 pooja) removed removed, margins well approximated well approximated and without odor Neuro General: alert, awake, oriented x3, CN's II-XI intact bilaterally Speech: speech normal Gait: normal gait Motor: muscle tone normal throughout Extrem General: normal to inspection, normal gait, no edema, no pedal edema Psych Appearance: grossly normal Mental Status: mental status grossly normal Affect: normal affect Attitude: cooperative Thought Process: normal Assessment AND Plan Problems 1. Intra-abdominal abscess K65.1 2. Ileostomy status Z93.2 Plan All pooja were removed exception of one staple superior to the drain site, patient tolerated well. Incision sites are without signs of infection. Patient will be following up in 1 week with her surgeon to consider drain removal. Patient does have diffuse tenderness around the incision sites and around the drain site. She denies any signs of acute infection at this time. She will continue to follow-up with her surgeon. Instructed patient in depth that I am unable to remove the drain in our office as the surgeon's office strictly said not to remove it until she is seen and evaluated by their office. Patient verbalized understanding. Educated on red flag symptoms that require urgent medical attention. During disclaimer Medications Changed: From: insulin glargine (U-100) (Basaglar Kwik70 units in the a.m and 80 units at nigE11.9 Pen U-100 Insulin) ht e11.9 Discontinued: pen needle, diabetic (Easy Comfortuse to inject insulin up to 6 x qdE11.9 Michel Chavez Pen [place]) Discontinued Reas 180 ea 11RF on: Order edited - Discontinuing original order Plan Detail Follow Up As previously scheduled or sooner if needed. Coding Level of Care Code Off vis,est,level 3 Diagnoses Intra-abdominal abscess K65.1 Ileostomy status Z93.2 09/07/17 09 <Electronically signed by Naima LEOS> Date Naima LEOS Cosigner Signature: Date (if applicable) CC: HISTORY AND PHYSICAL Observed: 09/07/2017 Status: F Source: ANTHONY EXAM 9:09 AM [facility] [place] [facility] Medical Records Department [address] [place] [id number] History and Physical 09/06/17 1520 MR#: [id number] Acct: [id number] Name: AILYN MÉNDEZ Rep #: [id number] : 1960 57 From: Audrey Vail MD PCP: Shannan Mcgrath MD Status: ADM IN Location: MS3 KJ136-6 ADDENDUM by Audrey Vail MD on 09/07/17 at 0909 Code Visit Please note that patient was admitted on September 06, 2017, and had surgery on August 19, 2017. 09/07/17 0909 <Electronically signed by Audrey Vail MD> Date Audrey Vail MD cc: Shannan Mcgrath MD; Audrey Vail MD * Signed Problem List (1) Shortness of breath Status: Acute (2) Abdominal pain Status: Acute Qualifiers: Abdominal location: right lower quadrant Qualified Code(s): R10.31 - Right lower quadrant pain History of Present Illness Date of Admission: 09/06/17 Chief Complaint: shortness of breath, fever, productive cough The patient is a 57 year old F with an extensive past medical history of coronary artery disease status post quadruple bypass and 9 stents, ulcerative colitis with ileostomy in place and status post colectomy many years ago, COPD, diabetes, hypertension, hyperlipidemia, chronic renal failure and gastroparesis due to diabetes. Patient was admitted via the ED on 09-21 with complaint of fever for the past 4 days, shortness of breath and no abdominal pain. According to patient she had surgery for abdominal fistula on 19 August 2016 at [facility]. Patient felt well after the surgery and had his pooja removed by her primary care physician last . Subsequent to that, patient noticed that she had a fever which went as high as 103 Fahrenheit. Fever was swinging and she had episodes of chills as well. She had an associated cough which is post productive of greenish and yellowish sputum. She notes that she was short of breath and also pleuritic chest pain with breathing in and out. She also had a right lower quadrant abdominal pain after she had the sutures removed and noticed that she had some discharge, this was around the drain that had been placed and not from the drain. Discharge had actually reduced a bit. She also complained of decreased oral intake, decreased urine output with darkening of the urine color. She felt very lethargic and was not able to undergo her independent activities of daily living. She therefore decided to come to the hospital today. Vitals on admission showed T-96.6F, BP-180/72, NJ-117 and RR-16. White cell count of 12.1 with hemoglobin of 11 point and platelets of 245. BMP showed Na of 134, Cr of 1.42, eGFR of 40. Lipase was 144 urinalysis was normal. Lactic was elevated at 3.6. EKG on arrival shows sinus tachycardia with rate of 117 beat per minute and nonspecific ST changes noted. Chest x-ray done showed degenerative changes of the spine and CT of the abdomen showed only postop changes. CT of the chest was negative for PE but showed increased markings in the right upper lobe and could not rule out an infiltrate. Patient was started on IV aztreonam and vancomycin in the ED has been admitted to be managed for health associated pneumonia and surgical site infection. [] Past Medical History Past Medical History (Chronic Problems): Chronic Problems (Last Updated 09/02/17 @ 09:12 by Jory Ruiz) Multiple falls (Chronic) Syncope (Chronic) Vertigo (Chronic) Chronic renal insufficiency (Chronic) Sleep apnea (Chronic) Menieres disease (Chronic) Ulcerative colitis (Chronic) Ileostomy status (Chronic) Surgical wound dehiscence (Chronic) CAD (coronary artery disease) (Chronic) Hyperlipidemia (Chronic) Continues on statin without side effect. Reports taking as directed. No recent labs noted. Diarrhea (Chronic) Anemia of chronic renal failure, stage 3 (moderate) (Chronic) Obstructive sleep apnea (Chronic) Psoriasis (Chronic) Heart failure with preserved ejection fraction (Chronic) Benign essential HTN (Chronic) Depression (Chronic) DM2 (diabetes mellitus, type 2) (Chronic) Continues to have abdominal pain and stress. Bp actually fairly good today. Has been scheduled for abdominal surgery at [facility]. Is having some memory loss and has seen neurologist. FCHL (familial combined hyperlipidemia) (Chronic) Ulcerative colitis (Chronic) Status post ileostomy Hx of coronary artery disease (Chronic) Status post CABG, failed, status post multiple stents. Pulmonary hypertension (Chronic) History of coronary artery stent placement (Chronic 2012) Mid LAD and Cx 2012, D1 and prox OM1 2012, Prox SVG, Distal SVG to the Mid OM 2012 S/P CABG (coronary artery bypass graft) (Chronic 2012) JONES to LAD, SVG diag, SVG to OM, SVG to left PDA Chronic respiratory failure (Chronic) COPD (chronic obstructive pulmonary disease) (Chronic) Medical History: Medical History (Last Updated 09/02/17 @ 09:12 by Jory Ruiz) Syncope (Chronic) R55 Vertigo (Chronic) R42 Chronic renal insufficiency (Chronic) N18.9 Sleep apnea (Chronic) G47.30 Menieres disease (Chronic) H81.09 Ulcerative colitis (Chronic) K51.90 CAD (coronary artery disease) (Chronic) I25.10 Hyperlipidemia (Chronic) E78.5 Continues on statin without side effect. Reports taking as directed. No recent labs noted. Benign essential HTN (Chronic) I10 DM2 (diabetes mellitus, type 2) (Chronic) E11.9 Continues to have abdominal pain and stress. Bp actually fairly good today. Has been scheduled for abdominal surgery at [facility]. Is having some memory loss and has seen neurologist. Hx of coronary artery disease (Chronic) Z86.79 Status post CABG, failed, status post multiple stents. History of coronary artery stent placement (Chronic) Onset Date: 2012 Z95.5 Mid LAD and Cx 2012, D1 and prox OM1 2012, Prox SVG, Distal SVG to the Mid OM 2012 Allergies cinnamon [Cinnamon] Allergy (Verified 09/06/17 09:56) Anaphylaxis Influenza Virus Vaccines Allergy (Verified 09/06/17 09:56) Shortness of breath liraglutide [From Victoza] Allergy (Verified 09/06/17 09:56) Anaphylaxis metronidazole [From Flagyl] Allergy (Verified 09/06/17 09:56) Hives Metronidazole HCl [From Flagyl] Allergy (Verified 09/06/17 09:56) Hives Penicillins Allergy (Verified 09/06/17 09:56) Hives Sulfa (Sulfonamide Antibiotics) Allergy (Verified 09/06/17 09:56) Hives ciprofloxacin [From Cipro] Adverse Reaction (Verified 09/06/17 09:56) Nausea codeine Adverse Reaction (Verified 09/06/17 09:56) Stops Ileostomy dicyclomine HCl [From Bentyl] Adverse Reaction (Verified 09/06/17 09:56) Nausea metformin HCl [From Glucophage] Adverse Reaction (Verified 09/06/17 09:56) Nausea Yqxcgka-Tee-Bfc Reductase Inhibitor Adverse Reaction (Verified 09/06/17 09:56) Nausea/joints ache Home Medications: Ambulatory Orders Medication Instructions Recorded Aspirin [Aspirin, Baby] 81 mg PO DAILY@0800 01/21/15 Surgical History: Surgical History (Last Updated 09/02/17 @ 09:12 by Jory Ruiz) S/P CABG (coronary artery bypass graft) (Chronic) Onset Date: 2012 Z95.1 JONES to LAD, SVG diag, SVG to OM, SVG to left PDA H/O colectomy Z98.890, Z90.49 H/O total hysterectomy Z98.890, Z90.710 gallbdder removal history closed fissure ileostomy left thumb surgery lysis of adhesion vestibular nerve surgery for Meniere's Surgical History: angioplasty, coronary bypass surgery, hysterectomy, - - Complete colectomy for ulcerative colitis 30 years ago. Patient had her ileostomy transitioned over from her right to her left. Lives: Alone Smoking Status: Former smoker Alcohol: None Drugs: None - *Family History Maternal Family History: Family History (Last Reviewed 09/02/17 @ 09:11 by Jory Ruiz) Mother CVA (cerebral vascular accident) Diabetes Brother Heart disease Myocardial infarction Pancreatitis Father Cancer Lymphoma Grandmother Myocardial infarction Sister COPD (chronic obstructive pulmonary disease) History Items: Heart Disease, - - No autoimmune disease that she is aware of Paternal Family History: Family History (Last Reviewed 09/02/17 @ 09:11 by Jory Ruiz) Mother CVA (cerebral vascular accident) Diabetes Brother Heart disease Myocardial infarction Pancreatitis Father Cancer Lymphoma Grandmother Myocardial infarction Sister COPD (chronic obstructive pulmonary disease) History Items: Cancer - Father has H/o lymphoma, - - No autoimmune disease that she is aware of Review of Systems Constitutional: Reports: Anorexia, Chills, Fever, Night Sweats, Malaise, Weakness, Fatigue Eyes: Denies: Blurred vision HEENT: Denies: Difficulty Hearing, Difficulty Swallowing, Head Aches Cardiovascular: Reports: Palpitations. Denies: Chest Pain, Claudication, Chest Tightness, Edema, Heaviness, Light Headedness, Orthopnea, Syncope Respiratory: Reports: Cough, Pleuritic Pain, Shortness of Breath, Shortness of breath at rest, Shortness of breath upon exertion, Sputum production, Wheezing Gastrointestinal: Reports: Abdominal Pain - Lower quadrant at site of surgery, Nausea. Denies: Diarrhea, Dyspepsia, Vomiting Genitourinary: Denies: Dysuria, Frequency, Hesitancy, Incontinence Musculoskeletal: Denies: Joint Pain, Joint Tenderness Skin: Denies: Dryness, Jaundice, Rash, Skin Changes Neurological: Denies: Numbness, Tingling, Focal weakness Psychiatric: Denies: Anxiety Hematologic/ Lymphatic: Denies: Easy Bruising, Easy Bleeding VTE Information - Inpt Only VTE Present on Admission: No VTE Mechan Device Prophylaxis: SCD's VTE Pharm Prophylaxis ordered?: Yes - Physical Exam General: Alert, Oriented x3, Cooperative, - - Mild distress HEENT: Atraumatic, PERRLA, EOMI, Normocephalic Oral: Dry Mucosa Neck: Supple, No JVD, Negative Carotid Bruits, No Nodes, No Nuchal Rigidity, Trachea Midline Lungs: Short of Breath, - - Has adequate breathsounds bilaterally. Has coarse crackles in left lower lung corral and a few crackles in right lower lung corral. No wheezing auscultated. Cardiovascular: Regular Rhythm, Normal S1, Normal S2, No murmurs, Tachycardic Abdomen: Bowel Sounds Present, Soft, - - Has an ileostomy bag in left lower quadrants containing scanty stool. Has healing surgical scar and infraumbilical area. Draining right lower quadrant at site of surgery is clean. Very minimal erythema around drain. Slight puslike discharge from around drain, with no tenderness or induration on palpation. Extremities: No clubbing, No cyanosis, No edema, Capillary Refill Less than 3 Seconds Skin: No rashes Musculoskeletal: No Tenderness to Palpation of Joints or Extremities Lymphatic: No Cervical, Supraclavicular, or Inguinal Adenopathy Neurological: Cranial nerves II-XII grossly intact Psych/Mental Status: Normal Affect, Appropriate, Alert and oriented to time, place, person, mood and affect Vital Signs Temp Pulse Resp BP Pulse Ox 96.6 F L 117 H 16 180/72 H 95 09/06/17 09:56 09/06/17 13:26 09/06/17 13:26 09/06/17 11:49 09/06/17 13:26 Laboratory Tests Past 24 Hrs Lactic Acid Pending Impressions Chest X-Ray 09/06/17 10:15 IMPRESSION: Degenerative changes, as described above. No demonstrated acute cardiopulmonary process. Electronically Signed: Dudley Lopez MD at 11:10 EDT , Service support , Abdomen/Pelvis CT 09/06/17 10:17 IMPRESSION: Postoperative changes noted in multiple bowel loops in the central upper abdomen which are adherent to the undersurface of the peritoneum there is associated induration of the subcutaneous fat at this level as well as a fistulous connection to the skin surface. There is no organized abscess. Left lower quadrant ostomy site free of complication a right lower quadrant ostomy site has been surgically closed. No suspicious solid organ abnormality, previous cholecystectomy Degenerative bony changes Electronically Signed: Dudley Lopez MD at 11:51 EDT , Service support , Chest CTA 09/06/17 12:14 IMPRESSION: Minimal increased markings in the posterior aspect of the right upper lobe as it abuts the minor fissure. Electronically Signed: Eric Spencer MD at 13:10 EDT Tel [phone], Service support , 09/06/17 10:15 Chest 1 View (Portable) [RAD] Stat 09/06/17 10:17 Abdomen/Pelvis without Cont [CT] Stat 09/06/17 12:14 CTA Chest W/WO Contrast [CT] Stat Laboratory Results Assessment/Plan All Active Problems (Last Updated 09/02/17 @ 09:12 by Jory Ruiz) Shortness of breath (Acute) Abdominal pain (Acute) Acute pancreatitis (Resolved) Chest pain (Resolved) Hypokalemia (Resolved) 57 year female but extensive past medical history and recent history of surgery for right lower quadrant fistula about 2 weeks ago, presents with a complaint of fever 4 days duration, shortness of breath and a productive cough as well as mild increase in drainage from around the drain. 1. Sepsis due to health associated pneumonia and surgical site infection * Use incentive spirometry during his stay in the hospital but has not been using it afterwards. Has a cough productive of greenish yellow sputum and shortness of breath with assisted pleuritic chest pain bilaterally. * Had coarse crackles in left lower lung field. * On admission but increased to 22. * Has SIRS criteria 2/4, with focus of infection likely pneumonia and possible surgical site infection * qSOFA score: 1 * White cell count is 12.1 and lactic acid was 3.6. * blood cultures ordered; will order wound culture of surgical site also * CXR: degenrative processes, with no acute cardiopulmonary process * Chest CT: No evidence of PE, and minimal increased markings in posterior aspect of the right upper lobe which may represent atelectasis and or early infiltrate. * CT abdomen: Postoperative changes and multiple bowel loops in the central upper abdomen adherent to the undersurface of the retroperitoneum with assisted induration of subcutaneous fat at this level as well as a fistulous connection to the skin surface. No organized abscess. Left lower quadrant ostomy site free of complication. No solid organ abnormality. Previous cholecystectomy. * Received a dose of IV vancomycin 1.25, in the ED. * Admit to MedSurg unit with telemetry * Received a bolus of IV fluids normal saline 1 L in the ED. Will give another liter of normal saline and monitor urine output. will check urine urine output and continue fluids at rate as needed. * Will continue IV vancomycin with pharmacy to dose and give IV meropenem 1 g every 8. Patient allergic to penicillin hence use of IV meropenem. * will cycle lactic acid to see if it trends down. * surgical consult placed with Dr Fairchild * 2. Type 2 diabetes mellitus * On Lantus 80 units twice daily and aspart. * Accuchecks ACHS. Will hold Lantus in light of patient's low oral intake. * will monitor sugar, and resume ;antus as needed * 3. HTN * BP during review was in 200s systolic. On metoprolol; didnt take it this morning as she was not feeling well * will resume meds, and give IV hydralazine prn * 4. COPD * will give breathing treatments with atrovent. Will hold albuterol due to tachycardia * 5. CAD s/p stents and quadruple bypass * on statin, imdur and plavix; will continue * 6. History of ulcerative colitis s/p colectomy, with ileostomy bag in place: stable 7. DVT prophylaxis: heparin 8. GI prophylaxis: omeprazole Code status: full code. Time spent with patient and partner counseling about different types of CODE STATUS. Patient selected full code and expressed understanding of various types of CODE STATUS. This note was generated with [employer] dictation software. It may contain incorrect words, spelling, and punctuation that were not noted in checking the note before signing. Code Visit Inpatient E AND M: 29856 Init Hosp L3 09/06/17 1643 <Electronically signed by Audrey Vail MD> Date Audrey Vail MD Cosigner Signature: Date (if applicable) CC: Shannan Mcgrath MD; Audrey Vail MD Signed BEDSIDE GLUCOSE Collected: 09/07/2017 Status: F Source: ANTHOYN 6:40 AM [facility] TYPE CODE TESTS RESULT OUT OF REFERENCE UNITS RANGE LAB L501.080 70-110 mg/dL High BEDSIDE GLU 287 Result Comment: MANAGEMENT OF PATIENT CARE PER NURSING PROTOCOL Performed By: #### L501.080 #### [facility] Point of [place] [address] [place] [address] BASIC METABOLIC Collected: 09/07/2017 Status: F Source: [place] PROFILE (BMP) 5:50 AM [facility] TYPE CODE TESTS RESULT OUT OF RANGE REFERENCE UNITS LAB L501.0100 74-106 mg/dL High GLU 279 Result Comment: Glucose result greater than or equal to 200 mg/dL suggests DIABETES MELLITUS per A.D.A. criteria. Please note revised GLUCOSE reference range effective 2017. LAB L501.1000 7-18 mg/dL Normal BUN 16 LAB L501.1100 0.55-1.02 mg/dL High CREAT,SERUM 1.07 Result Comment: The validity of the calculated GFR AND GFRAA in patients over 70 years has not been determined. Clinical correlation is essential. LAB L501.1110 >60 mL/min Low EST GFR 56 Result Comment: Non- GFR Calc LAB L501.1115 >60 mL/min Normal EST GFR - AA 68 Result Comment: GFR Calc LAB L501.1255 ml/min Normal Estimated CRCL 55.05 LAB L501.1300 10-20 RATIO Normal BUN/CRE 15.0 LAB L501.2200 8.5-10 mg/dL Normal .1 CA 8.6 LAB L501.5300 136-14 mmol/L Normal 5 NA 141 LAB L501.5600 3.5-5. mmol/L Normal 1 K 4.5 LAB L501.5900 98-107 mmol/L Normal CL 107 LAB L501.6100 21.0-3 mmol/L Normal 2.0 CO2 25.0 LAB L501.6200 5-15 Normal GAP 9 Performed By: #### L500.2500 #### [facility] [address] [place], [address] CBC W/DIFF, AUTOMATED Collected: 09/07/2017 Status: F Source: [place] 5:50 AM [facility] TYPE CODE TESTS RESULT OUT OF RANGE REFERENCE UNITS LAB L100.1000 4.4-11.0 K/mm3 Normal WBC 9.3 LAB L100.1200 4.2-5.4 M/mm3 Low RBC 3.73 LAB L100.1300 12.0-15.0 g/dl Low HGB 10.1 LAB L100.1400 37-47 % Low HCT 31.9 LAB L100.1500 81-99 fL Normal MCV 85.5 LAB L100.1600 27.0-32.0 pg Normal MCH 27.1 LAB L100.1700 32-36 g/gl Low MCHC 31.7 LAB L100.1810 11.6-14.6 % High RDW CV 15.3 LAB L100.1820 35.1-43.9 fl High RDW SD 48.0 LAB L100.1900 150-450 K/mm3 Normal PLT 261 LAB L100.2000 6.2-12.0 fl Normal MPV 12.0 LAB L100.2100 47-70 % Normal NEUT% 65.4 LAB L100.2200 19-41 % Normal LY% 20.0 LAB L100.2300 0-10 % Normal MONO% 8.1 LAB L100.2400 0-5 % High EO% 5.7 LAB L100.2500 0-1 % Normal BASO% 0.4 LAB L100.2550 0.0-0.9 % Normal IM GRAN % 0.400 Result Comment: IG% - Immature Granulocytes (promyelocytes, myelocytes and metamyelocytes) > 1% indicates that a LEFT SHIFT is Present. LAB L100.2620 2.0-7.7 X10 3/uL Normal Absolute Neut 6.1 LAB L100.2720 0.83-4.51 X10 3/ul Normal Absolute Lymph 1.86 Performed By: #### L100.0100 #### [facility] [address] [place], [address] Observed: 09/06/2017 Status: F Source: NATHONY CULTURE, WOUND 10:30 PM [facility] Gram Stain Gram Stain 1+ White Blood Cells No organisms seen Wound Culture Gram positive regina suggestive of a diptheroid. Clinical correlation necessary, Possible skin contamination. ORGANISM 1: Gram positive regina Amount Growth 1+ Performed By: #### M100.1400 #### [facility] [address] [place] [address], [address] BEDSIDE GLUCOSE Collected: 09/06/2017 Status: F Source: [place] 9:58 PM [facility] TYPE CODE TESTS RESULT OUT OF REFERENCE UNITS RANGE LAB L501.080 70-110 mg/dL High BEDSIDE GLU 359 Result Comment: MANAGEMENT OF PATIENT CARE PER NURSING PROTOCOL Performed By: #### L501.080 #### [facility] Point of Care [address] [place] [address] LACTIC ACID Collected: 09/06/2017 Status: F Source: [place] 9:29 PM [facility] Order Comment: Comments: One draw at 2110, no reflux needed Yes/No query for Sepsis Lactate Rule Y TYPE CODE TESTS RESULT OUT OF REFERENCE UNITS RANGE LAB L503.6005 0.4-2.0 mmol/L High LACTIC ACID 2.2 Result Comment: Critical Result(s) Called at: 22:19:12 09/06/2017 by: OBI CHAN to erin diaz in ms3 Performed By: #### L503.6005 #### [facility] [address] [place] [address], [address] CONSULTATION Observed: 09/06/2017 Status: F Source: ANTOHNY 8:24 PM [facility] Medical Records Department [address] [place] [address] Consultation 09/06/17 1703 MR#: [id number] Acct: [id number] Name: AILYN MÉNDEZ Rep #: [id number] : 1960 57 From: Nuha Fairchild MD PCP: Shannan Mcgrath MD Status: ADM IN Y Location: MS3 [id number] - Consult Date of Consult: 09/06/17 - Reason for Consult Chief Complaint: asked by Dr. Whittington to evaluate patient who had recent surgery at [facility] History of Present Illness: 57 y/o WF presents with shortness of breath and weakness and coughing She recently underwent surgery at [facility] - 08/19/17 -Exploratory laparotomy, lysis of adhesions, curettage and drainage of abscess Findings: intra-abdominal adhesions, no communication between the skin fistula track with intra-abdominal cavity. Fistula track opened - presence of previous non-absorbable suture causing an abscess A nicolasa drain was left in place. She states that she has had severe shortness of breath with weakness and severe coughing for the past four days. Has had fevers/chills. Has COPD with mixed obstructive/restrictive process found by preoperative evaluation of above. Diffusion capacity is normal. The patient states that she has had ulcerative colitis for 41 years. She had a colectomy in 1979. Now has left lower quadrant ileostomy. Other comorbidities includes CAD with OHS and CABG x 5 in 2012. Since then she has had 9 stents at [facility]. The patient still has anterior chest pain which is chronic in nature. It is not believed to be cardiac in origin. Echocardiogram from 08/05/17 demonstrates an ejection fraction of 67% with normal left ventricular function. Grade 1 diastolic dysfunction PAST MEDICAL HISTORY Back pain CAD (coronary artery disease) 08/18/2013 Chest pain at rest 08/21/2013 Dr. John, Pain Management CHF (congestive heart failure) ([facility]) 08/21/2013 Chronic abdominal wound infection CKD (chronic kidney disease) stage 3, GFR 30-59 ml/min 08/21/2013 COPD (chronic obstructive pulmonary disease) ([facility]) 08/18/2013 mixed obstructive and restrictive process, normal diffusion followed by Dr. Lazo Depression with anxiety 08/21/2013 History of Meniere's disease 1994 surgical treatment HTN (hypertension) 08/18/2013 Hyperlipidemia 08/18/2013 Hypoxemia 12/18/2013 Dr. Cherelle Lazo, pulmonary Migraine 08/21/2013 Neck pain ANKITA on CPAP 08/21/2013 Pulmonary hypertension, moderate to severe 08/21/2013 S/P total colectomy Ulcerative colitis, ileostomy. Type II or unspecified type diabetes mellitus without mention of complication, uncontrolled 08/18/2013 Ulcerative colitis (HCC) PAST SURGICAL HISTORY CABG, ARTERY-VEIN, FOUR 2012 CABG, quadruple grafts DELIVERY ONLY 1988 , low transverse DEBRIDEMENT:CURRETATE, SKIN SUBCUTANEOUS 08/14/2014 chronic abdominal wound DECOMPRESS FACIAL NERVE,TOTAL 1993 Facial nerve decomp, 1993, Right side ILEOSTOMY 1982 LEFT HEART CATH,PERCUTANEOUS 07/10/2013 Cardiac cath, L heart LEFT HEART CATH,PERCUTANEOUS 09/04/2015 Cardiac cath, L heart LOCAL REVISION OF ILESTOMY 2008 STENT PLACEMENT,PERCUTAN,EACH 08/2012;09/2012; multiple TOTAL ABDOM HYSTERECTOMY 1990 Hysterectomy, CIRO, bilateral SO MEDICATIONS: LORazepam (ATIVAN) 1 mg tablet buprenorphine (BUTRANS) 5 mcg/hour pregabalin (LYRICA) 50 mg capsule atorvastatin (LIPITOR) 80 mg tablet insulin aspart (NOVOLOG) 100 unit/mL soln ondansetron (ZOFRAN) 4 mg tablet DULoxetine (CYMBALTA) 60 mg capsule isosorbide dinitrate (ISORDIL, SORBITRATE) 30 mg tablet furosemide (LASIX) 20 mg tablet magnesium oxide (MAG-OX) 400 mg tablet metoprolol tartrate, short acting, 50 mg tablet aspirin (ASPIRIN CHILDRENS) 81 mg chewable tablet nitroglycerin sublingual (NITROSTAT) 0.4 mg SL tablet clopidogrel (PLAVIX) 75 mg tablet ALLERGIES: Cinnamon, Dicyclomine, Azulfidine, Flagyl, Fluzone, Glucophage, Influenza Virus, Penicillins, Sulfa, Victoza REVIEW OF SYSTEMS: GEN :No fever, chills or sweats. NEURO :Denies syncope, WOLF. No seizures. No numbness or tingling EYES :No h/o uveitis, glaucoma, cataracts. Denies diplopia ENT :Denies sinusitis, rhinitis, post nasal drip or oral concerns. GI: Denies BM changes. No h/o ulcers, dysphagia or heartburn ENDO :Denies thyroid disease. HAS DM ON INSULIN X 10 YEARS CARD :No CP , palpitations, edema. No diagnosed heart disease CAD :No hematuria, kidney disease or bladder concerns Chronic kidney disease. DERM :Denies skin rash, flushing, or lesions MSK :Negative for swelling. HAS ARTHRITIS OF THE SPINE AND DISK DISEASE. JOSE :Denies bruising, blood clots or swollen nodes EXT: Denies pedal edema, DVT PSYCH: Denies sleep disturbance or mood disorder Physical examination: Vital signs Temp 98.4F General WD/WN WF in no apparent distress, alert and oriented, not septic appearing HEENT Normocephalic. EOM intact with sclera clear and no icterus noted. Neck is supple with no jugular venous distention noted. Trachea is midline. Lungs clear to auscultation. normal breath sounds. No rales/rhonchi/wheezing noted. No labored breathing noted, such as retractions. No cough heard. Heart normal S1 and S2 auscultated. No rubs/clicks/murmurs noted. Normal size and location by auscultation. Abdomen soft and benign. Normal bowel sounds, left lower quadrant ostomy functioning, right lower quadrant with drain with paramedian incision, healing, healing midline incision Extremities no calf tenderness noted. No pitting edema noted. Genitourinary/Rectal deferred Skin normal skin integrity. Neurological non focal Psychological normal affect, patient is calm and appropriate Impression: s/p wound exploration respiratory disorder Discussion/Plan: I have discussed the above with the patient. No abdominal pathology requiring intervention at this time. Patient to follow up with her surgeon at main F September 13 I have answered all questions to the patient s satisfaction and the patient has no further questions. 09/06/172023 <Electronically signed by Nuha Fairchild MD> Date Nuha Fairchild MD Cosigner Signature (if applicable): Date CC: Shannan Mcgrath MD; Nuha Fairchild MD Signed BEDSIDE GLUCOSE Collected: 09/06/2017 Status: F Source: [place] 5:14 PM [facility] [place] TYPE CODE TESTS RESULT OUT OF REFERENCE UNITS RANGE LAB L501.080 70-110 mg/dL High BEDSIDE GLU 312 Result Comment: MANAGEMENT OF PATIENT CARE PER NURSING PROTOCOL Performed By: #### L501.080 #### [facility] Point of Care [address] [place] [address] LACTIC ACID Collected: 09/06/2017 Status: F Source: [place] 3:10 PM [facility] Order Comment: CALLED SHIRIN IN ED PATIENT STILL IN ED AT 1500 VSICK. LABELS SENT TO THE ED. TYPE CODE TESTS RESULT OUT OF REFERENCE UNITS RANGE LAB L503.6005 0.4-2.0 mmol/L High LACTIC ACID 2.2 Result Comment: Critical Result(s) Called at: 15:48:52 09/06/2017 by: OBI pleitez in er Performed By: #### L503.6005 #### [facility] [address] [place], [address] EMERGENCY DEPARTMENT Observed: 09/06/2017 Status: F Source: [place] SUMMARY 2:37 PM [facility] [place] [facility] Medical Records Department [address] [place] [address] Emergency Department Summary 09/06/17 1432 MR#: [id number] Acct: [id number] Name: AILYN MÉNDEZ Rep #: [id number] : 1960 57 From: Leonides Nicole DO PCP: Shannan Mcgrath MD Status: REG ER - ER Visit Summary Date of Service: 09/06/17 Chief Complaint: [Abdominal pain and dyspnea] History of Present Illness: The patient is a 57 F [presents to the emergency department with complaint of abdominal discomfort and dyspnea. Patient states that she had a abdominal fistula repair August 19 at [facility]. Since that time patient's been having dyspnea and cough. Patient generally feels weak and feels like she is not getting enough fluids and feels dehydrated. Patient had decreased urine output and decreased ileostomy output. Patient's had fever up to 103 and the last time this was elevated was 3 days ago. Patient has a history of coronary artery disease, COPD, diabetes, hypertension, high cholesterol, ulcerative colitis, chronic renal failure and gastroparesis. Patient also has a ileostomy.] Physical Examination: [HEENT-PERRLA, EOMI. Cranial nerves II through XII grossly intact. TMs clear. Mucous membranes moist. No adenopathy. Cardiovascular-regular rate and rhythm without murmur or ectopy Lungs-breath sounds bilaterally with some rales noted in the bases. No accessory muscle use or retractions. Occasional faint X Tory wheezes noted. Abdomen-normoactive bowel sounds, soft. Patient has some mild diffuse tenderness. There is no rebound, rigidity, or perineal signs. Patient has a small drain in the right lower quadrant from fistula repair and this is only has minimal amount of drainage noted from it. Patient also has an ileostomy in the left lower quadrant. No hernias noted. Extremities-intact 4, normal range of motion, normal pulses, atraumatic] Test Results: [CBC with differential obtained showed a white count 12.1, hemoglobin 11.8, hematocrit 37, platelet 245. Chemistries unremarkable. Lipase was 144. Urinalysis was normal. Troponin was less than 0.015. Lactate was elevated 3.6. EKG obtained on arrival shows sinus tachycardia with a rate of [address] changes noted. Chest x-ray obtained showed degenerative changes of the spine otherwise nothing significant. CT scan of the flank showed postop changes nothing significant. CT scan of the chest obtained to rule out PE was negative for PE but there were increased markings in the right upper lobe and could not rule out early infiltrate.] Emergency Department Course and Treatment: [Patient was started on Azactam and vancomycin. Patient was medicated with morphine and Zofran. Patient was given DuoNeb aerosol.] Treatment Plan: [Patient case was discussed with Dr. Nuha Fairchild as well as hospitalist Dr. Whittington will evaluate patient for admission Disposition: [Admit] Impression: [Postop abdominal pain Health acquired pneumonia Dehydration Sepsis] This note was generated with [employer] dictation software. It may contain incorrect words, spelling, and punctuation that were not noted in review of the chart prior to signing ED Disposition - Plan for ED Patient: Chief Complaint: Abd Pain Referrals: Shannan Mcgrath MD [Primary Care Provider] - What to do if you have Problems For any increased pain, shortness of breath, bleeding, nausea or vomiting, chest pain, or any unexpected problems, contact your Primary Care Provider. Call [employer] [facility] [facility] ([phone]) or report to the closest Emergency Room. Call 911 if necessary. 09/06/17 1437 <Electronically signed by Leonides Nicole DO> Date Leonides Hebertmiller MANNING Cosigner Signature (If Indicated): Date CC: Shannan Mcgrath MD URINALYSIS, COMPLETE Collected: 09/06/2017 Status: F Source: [place] 12:25 PM [facility] [place] Order Comment: How was Urine Obtained? IRONER OR PRESSER TO SPECIFY TYPE CODE TESTS RESULT OUT OF RANGE REFERENCE UNITS LAB L400.3000 Yellow COLOR Normal Yellow LAB L400.3050 Clear Normal CLARITY Sl. Cloudy LAB L400.3200 Normal mg/dl High GLUCOSE, UR 1000 LAB L400.3300 Negative mg/dL Normal BILIRUBIN URINE Negative LAB L400.3400 Negative mg/dl High 5 KETONE UR LAB L400.3465 1.002-1.030 Normal SP.GR. DIPSTX 1.015 LAB L400.3550 5.0 - 8.0 pH UR Normal 6.0 LAB L400.3600 Negative mg/dl High PROT DIPSTX 100 LAB L400.3700 Normal mg/dl Normal UROBILI Normal LAB L400.3750 Negative Normal NITRITE UR Negative LAB L400.3780 Negative /ul High 10 OCCULT BLOOD-UR LAB L400.3800 Negative /ul LEUK Normal ESTERASE Negative LAB L400.4050 0-5 /hpf WBC 0 Normal SEEN LAB L400.4100 0-5 /hpf Normal RBC-UA 0-5 SEEN LAB L400.4150 5-10 /hpf SQUAM Normal EPI 0-5 SEEN LAB L400.4300 None Seen /hpf 0 Normal BACTERIA SEEN LAB L400.4350 <or=2+ /hpf 0 Normal MUCUS, URINE SEEN Performed By: #### L400.0001 #### [facility] [address] [place], [address] CTA CHEST W/WO Observed: 09/06/2017 Status: F Source: [place] CONTRAST 12:15 PM [facility] [place] [facility] Imaging Services [address] [place] [address] CTA Chest W/WO Contrast MR#: [id number] Acct: [id number] Name: AILYN MÉNDEZ Rep #: [id number] : 1960 F 57 From: Eric Spencer MD PCP: Shannan Mcgrath MD Status: REG ER Study: CTA Chest W/WO Contrast Date of Exam: 09/06/17 Exam# [id number] Ordering Dr: Leonides Nicole DO STUDY: CTA CHEST REASON FOR EXAM: Female, 57 years old. Dyspnea. Recent abdominal surgery. RADIATION DOSAGE (If Supplied By Facility): CTDIvol = ( 14.74 ) mGy, DLP = ( 662.57 ) mGycm TECHNIQUE: The examination was performed with the intravenous administration of 75CC ml of Isovue 370 contrast material. Post-processing of the angiographic images was performed, with multiplanar reformation and 3D reconstruction. Individualized dose optimization techniques were used for this CT. COMPARISON: Comparison is made with prior study dated July 13, 2017. FINDINGS: Normal enhancement of the main pulmonary artery and right and left pulmonary arteries. Normal enhancement of the bilateral peripheral pulmonary arteries. There is no demonstrated pulmonary embolism. Normal thoracic aorta and visualized great vessels. There is no demonstrated aortic dissection. Sternal cerclage wires and vascular clips are present from a prior sternotomy and coronary artery bypass graft procedure (CABG). Normal mediastinum. Normal hilar regions. Normal visualized trachea and bronchi. The lungs are well expanded. Minimal increased markings in the posterior aspect of the right upper lobe abutting the right minor fissure. This may represent atelectasis and/or early infiltrate. Normal pleura. Normal chest wall structures. There are degenerative changes of thoracic spine. Normal visualized upper abdomen. CT/CTA Chest W/WO Contrast IMPRESSION: Minimal increased markings in the posterior aspect of the right upper lobe as it abuts the minor fissure. Electronically Signed: Eric Spencer MD at 13:10 EDT Tel [phone], Service support , CC: Shannan Mcgrath MD; Leonides Nicole DO Jboss Developer: Signed CBC W/DIFF, AUTOMATED Collected: 09/06/2017 Status: F Source: [place] 10:35 AM [facility] [place] TYPE CODE TESTS RESULT OUT OF RANGE REFERENCE UNITS LAB L100.1000 4.4-11.0 K/mm3 High WBC 12.1 LAB L100.1200 4.2-5.4 M/mm3 Normal RBC 4.38 LAB L100.1300 12.0-15.0 g/dl Low HGB 11.8 LAB L100.1400 37-47 % Low HCT 36.9 LAB L100.1500 81-99 fL Normal MCV 84.2 LAB L100.1600 27.0-32.0 pg Low MCH 26.9 LAB L100.1700 32-36 g/gl Normal MCHC 32.0 LAB L100.1810 11.6-14.6 % High RDW CV 15.0 LAB L100.1820 35.1-43.9 fl High RDW SD 46.4 LAB L100.1900 150-450 K/mm3 Normal PLT 295 LAB L100.2000 6.2-12.0 fl Normal MPV 12.0 LAB L100.2100 47-70 % High NEUT% 77.4 LAB L100.2200 19-41 % Low LY% 12.8 LAB L100.2300 0-10 % Normal MONO% 6.8 LAB L100.2400 0-5 % Normal EO% 2.6 LAB L100.2500 0-1 % Normal BASO% 0.2 LAB L100.2550 0.0-0.9 % Normal IM GRAN % 0.200 Result Comment: IG% - Immature Granulocytes (promyelocytes, myelocytes and metamyelocytes) > 1% indicates that a LEFT SHIFT is Present. LAB L100.2620 2.0-7.7 X10 3/uL High Absolute Neut 9.4 LAB L100.2720 0.83-4.51 X10 3/ul Normal Absolute Lymph 1.55 Performed By: #### L100.0100 #### [facility] [address] [place], [place], [address] BASIC METABOLIC Collected: 09/06/2017 Status: F Source: [place] PROFILE (BMP) 10:35 AM [facility] [place] TYPE CODE TESTS RESULT OUT OF RANGE REFERENCE UNITS LAB L501.0100 74-106 mg/dL High GLU 395 Result Comment: Glucose result greater than or equal to 200 mg/dL suggests DIABETES MELLITUS per A.D.A. criteria. Please note revised GLUCOSE reference range effective 2017. LAB L501.1000 7-18 mg/dL High BUN 19 LAB L501.1100 0.55-1.02 mg/dL High CREAT,SERUM 1.42 Result Comment: The validity of the calculated GFR AND GFRAA in patients over 70 years has not been determined. Clinical correlation is essential. LAB L501.1110 >60 mL/min Low EST GFR 40 Result Comment: Non- GFR Calc LAB L501.1115 >60 mL/min Low EST GFR - AA 49 Result Comment: GFR Calc LAB L501.1255 ml/min Normal Estimated CRCL 41.48 LAB L501.1300 10-20 RATIO Normal BUN/CRE 13.4 LAB L501.2200 8.5-10 mg/dL Normal .1 CA 9.6 LAB L501.5300 136-14 mmol/L Low 5 NA 134 LAB L501.5600 3.5-5. mmol/L Normal 1 K 3.9 LAB L501.5900 98-107 mmol/L Normal CL 98 LAB L501.6100 21.0-3 mmol/L Normal 2.0 CO2 25.0 LAB L501.6200 5-15 Normal GAP 11 Performed By: #### L500.2500, L501.2450, L501.4010 #### [facility] [address] [place], [place], [address] LIPASE Collected: 09/06/2017 Status: F Source: [place] 10:35 AM [facility] [place] TYPE CODE TESTS RESULT OUT OF RANGE REFERENCE UNITS LAB L501.2450 73-393 U/L Normal LIPASE 144 Performed By: #### L500.2500, L501.2450, L501.4010 #### [facility] [address] [place], [address] TROPONIN-I Collected: 09/06/2017 Status: F Source: [place] 10:35 AM [facility] [place] TYPE CODE TESTS RESULT OUT OF RANGE REFERENCE UNITS LAB L501.4010 <0.045 ng/mL Normal < 0.015 TROPONIN-I Result Comment: TROPONIN-I EXPECTED VALUES <0.045 Negative 0.045 - 0.590 Consistent with Cardiac Damage > OR = 0.600 Critical Value Not every elevated troponin is indicative of CT. These values should be used with clinical judgement in examining the patient's clinical picture for diagnosis. To establish a diagnosis of CT versus myocardial injury, there must be a demonstrated rise and/or fall in the troponin values, in addition to ischemic symptoms, EKG changes, new regional wall motion abnormality, and/or angiographical evidence. PLEASE NOTE: REFERENCE RANGES EDITED 17 Performed By: #### L500.2500, L501.2450, L501.4010 #### [facility] [address] [place], [address] LACTIC ACID Collected: 09/06/2017 Status: F Source: [place] 10:35 AM [facility] Order Comment: Yes/No query for Sepsis Lactate Rule Y TYPE CODE TESTS RESULT OUT OF REFERENCE UNITS RANGE LAB L503.6005 0.4-2.0 mmol/L High LACTIC ACID 3.6 Result Comment: Critical Result(s) Called at: 11:21:27 09/06/2017 by: Joelle Ying to [facility] Performed By: #### L503.6005 #### [facility] [address] [place], [address] Observed: 09/06/2017 Status: F Source: [place] CULTURE, BLOOD (WB) 10:35 AM [facility] No growth in 5 days. Performed By: #### M200.1000 #### [facility] [address] [place], [address] Observed: 09/06/2017 Status: F Source: [place] CULTURE, BLOOD (WB) 10:30 AM [facility] [facility] BC No growth in 5 days. Performed By: #### M200.1000 #### [facility] [address] [place], [address] CHEST 1 VIEW Observed: 09/06/2017 Status: F Source: [place] (PORTABLE) 10:18 AM [facility] [place] Imaging Services [address] [place] [address] Chest 1 View (Portable) MR#: [id number] Acct: [id number] Name: AILYN MÉNDEZ Rep #: [id number] : 1960 F 57 From: Deric Lopez MD PCP: Shannan Mcgrath MD Status: REG ER Study: Chest 1 View (Portable) Date of Exam: 09/06/17 Exam# [id number] Ordering Dr: Leonides Nicole DO STUDY: X-RAY CHEST REASON FOR EXAM: Female, 57 years old. Shortness of breath, history of previous cardiac surgery TECHNIQUE: Single AP portable view of the chest. COMPARISON: 07/07/2017 FINDINGS: There are interstitial fibrotic changes of the lungs. There is no demonstrated pleural abnormality. Sternal cerclage wires and vascular clips are present from a prior sternotomy and coronary artery bypass graft procedure (CABG). Normal mediastinum and marie. Normal visualized pulmonary arteries. Normal visualized aortic arch and descending thoracic aorta. Normal visualized thoracic spine. Normal visualized ribs, clavicles, and shoulders. There is no demonstrated abnormality of the visualized soft tissue structures of the upper abdomen. RAD/Chest 1 View (Portable) IMPRESSION: Degenerative changes, as described above. No demonstrated acute cardiopulmonary process. Electronically Signed: Dudley Lopez MD at 11:10 EDT , Service support , CC: Shannan Mcgrath MD; Leonides Nicole DO Jboss Developer: Signed ABDOMEN/PELVIS WITHOUT Observed: 09/06/2017 Status: F Source: [place] CONT 10:18 AM [facility] [place] Imaging Services [address] [place] [address] Abdomen/Pelvis without Cont MR#: [id number] Acct: [id number] Name: AILYN MÉNDEZ Rep #: [id number] : 1960 F 57 From: Deric Lopez MD PCP: Shannan Mcgrath MD Status: REG ER Study: Abdomen/Pelvis without Cont Date of Exam: 09/06/17 Exam# [id number] Ordering Dr: Leonides Nicole DO STUDY: CT ABDOMEN AND PELVIS WITHOUT CONTRAST REASON FOR EXAM: Female, 57 years old. Diffuse abdominal pain, fistulous drainage RADIATION DOSAGE (If Supplied By Facility): CTDIvol = ( 11.98 ) mGy, DLP = ( 622.77 ) mGycm TECHNIQUE: Transaxial images were obtained from the dome of the diaphragm to the symphysis pubis without oral contrast, and without intravenous contrast. Sagittal and coronal images were reconstructed. Individualized dose optimization techniques were used for this CT. COMPARISON: 05/27/2017 FINDINGS: The visualized lung bases are unremarkable. The visualized portions of the heart are within normal limits. Normal liver. There are surgical clips in the gallbladder fossa consistent with a prior cholecystectomy. Normal spleen. Normal pancreas. Normal bilateral adrenal glands. Normal right kidney. Normal left kidney. Normal visualized stomach. There is a conglomeration of bowel loops adherent to the inner lining of the peritoneal surface just craniad to the umbilicus. There is associated subcutaneous emphysema, and herniation of the ventral fat this is likely the source of the fistulous drainage. There is stranding of the subcutaneous fat consistent with acute inflammatory change. An ostomy site in the right lower quadrant has been surgically closed. There is a left lower quadrant ostomy site free of complication. There is non-visualization of the appendix. There is diffuse atherosclerotic calcification of the abdominal aorta, without a demonstrated aneurysm. Normal inferior vena cava. Normal retroperitoneum. Normal urinary bladder. There are diffuse degenerative changes of the visualized lumbar spine, and pelvis. CT/Abdomen/Pelvis without Cont IMPRESSION: Postoperative changes noted in multiple bowel loops in the central upper abdomen which are adherent to the undersurface of the peritoneum there is associated induration of the subcutaneous fat at this level as well as a fistulous connection to the skin surface. There is no organized abscess. Left lower quadrant ostomy site free of complication a right lower quadrant ostomy site has been surgically closed. No suspicious solid organ abnormality, previous cholecystectomy Degenerative bony changes Electronically Signed: Dudley Lopez MD at 11:51 EDT , Service support , CC: Shannan Mcgrath MD; Leonides Nicole DO Jboss Developer: Signed CNCO Observed: 08/25/2017 Status: COMPLETED Source: [place] 12:00 AM [facility] REPOSITORY HNO ID: [id number] Author: Dean Rose Service: (none) Author Type: Physician Type: Letter Filed: 09/02/2017 10:31 AM Note Text: Dean Rose M.D., F.A.C.S. Department of Colorectal Surgery / [place] [address] Office: [phone] Appts: [phone] September 02, 2017 Shannan Mcgrath MD [address] [address] RE: Ailyn Méndez [facility]#: [id number] : [address] Mcgrath: I saw your patient, Ailyn Méndez, on April 26, 2017. is a 57-year-old woman who had a history of ulcerative colitis for which she had surgery and when I saw her had a left lower quadrant ileostomy, which was functioning well. Since the construction of the ileostomy with the colectomy, Mrs. Méndez had had a cholecystectomy performed for pancreatitis. Following that procedure, she indicated that at the site of the original ostomy she had developed an abscess, which was subsequently drained and it continued to drain 6 months after the initial event. She had not noticed any obvious enteric content or the passage of gas. She had had an injection study, which did not demonstrate any communication with the intestine. She was managing her ileostomy without difficulty.When I saw her, it appeared she had a draining area at the site of her previous ostomy, which commenced immediately following a laparoscopic cholecystectomy and had persisted for several months. I recommended that she have a CT enterography, which was performed on May 24, 2017, which appeared to show communication with the underlying and adherent small bowel loop, but this could not be confirmed with a fistulogram. Because of the radiologic appearances and the history with direct contact with the abscess cavity with the loop of bowel, I indicated that any surgery could only be done safely with a laparotomy.After discussion, operation was performed on August 19, 2017. A laparotomy was performed where there was no demonstrable communication with the intestine after the adhesions were taken down, but on opening the chronic sinus tract there was an infected tract leading to a heavy nonabsorbable suture in the base of the granulation tissue within the right rectus muscle. This was removed and the cavity drained. I plan to see her for followup in the near future, and we will keep you informed of her progress. Yours faithfully, Dean Rose MD CC: Ailyn Méndez [address] [place] [id number] CASE MANAGEM Observed: 08/23/2017 Status: COMPLETED Source: [place] 2:58 PM [facility] REPOSITORY HNO ID: [id number] Author: Patsy (Juvencio) JUVENCIO Gonzales Service: Care Management Author Type: Registered Nurse Type: Care Mgt Progress Note Filed: 08/23/2017 3:00 PM Note Text: CARE MANAGEMENT PROGRESS NOTE SERVICE DATE: 08/23/2017 SERVICE TIME: 2:59 PM LOS: 4 days Needs Prior to Discharge: (medical clearance) Per morning rounds plan is wean O2. No discharge date at this time. CM will continue to follow and update for home care needs and discharge plans. SIGNATURE: Patsy Gonzales RN PATIENT NAME: Ailyn Méndez DATE: August 23, 2017 TIME: 2:59 PM PAGER/CONTACT #: [phone] CNDS Observed: 08/22/2017 Status: COMPLETED Source: [place] 2:11 PM [facility] REPOSITORY HNO ID: [id number] Author: Lilia Reid (Pa) Service: Colorectal Author Type: Physician Wire Weaver Type: Discharge Summaries Filed: 08/26/2017 3:00 PM Note Text: DISCHARGE SUMMARY PATIENT NAME: Ailyn Méndez ADMISSION DATE: 08/19/2017 DISCHARGE DATE: 08/23/2017 ATTENDING PHYSICIAN: Dean Rose REASON FOR HOSPITALIZATION: This is a 57-year-old female patient whohad had an ileostomy in the right lower quadrant at some time in the past. The ostomy had subsequently been transferred to the left lower quadrant and subsequent to that in a remote time, had had a laparoscopic cholecystectomy. Following the cholecystectomy, the patient developed an abscess that was drained at the site of the previous ileostomy and site from which it was relocated that persisted for many months opening and closing and draining. She presented this admission for surgical management. DIAGNOSIS: Active Problems: CAD (coronary artery disease) COPD (chronic obstructive pulmonary disease) (HCC) HTN (hypertension) CHF (congestive heart failure) (HCC) ANKITA on CPAP CKD (chronic kidney disease) stage 3, GFR 30-59 ml/min Ileostomy in place (HCC) Diabetes mellitus type 2, uncontrolled, without complications (HCC) Fistula of intestine Crohn's colitis, with fistula ([facility]) Postoperative pain Intra-abdominal abscess ([facility]) Resolved Problems: * No resolved hospital problems. * OPERATIONS DURING HOSPITALIZATION: Laparotomy and drainage of chronic abscess cavity. PROCEDURES DURING HOSPITALIZATION: No procedures performed HOSPITAL COURSE: Mrs. Méndez came to the hospital to have surgery with Dr. Rose. Her surgery was uneventful and afterwards, she was transferred to a regular nursing floor. Her pain was controlled with oral and IV medication and her intake and output were closely monitored. Her diet was advanced as tolerated. Her Lira catheter was removed on postoperative day (POD) 1 and she was able to void. DVT prophylaxis was managed by early, frequent ambulation and intermittent compression stockings. Her electrolytes were monitored with daily labs and replaced as needed. Once her pain was controlled with oral medication, she was tolerating a GI soft diet, and her stoma was functioning well, she was deemed fit for discharge. Follow up with Dr. Rose in the clinic as scheduled. LABS AND PROCEDURES PENDING AT DISCHARGE: No pending results. CONSULTING TEAMS DURING HOSPITALIZATION: None PATIENT CONDITION AT DISCHARGE: Stable DISCHARGE DISPOSITION: Home/Self Care DISCHARGE MEDICATION: Discharge Medication List as of 08/23/2017 4:46 PM START taking these medications traMADol (ULTRAM) 50 mg tablet Take 1 tablet by mouth every 6 hours as needed for up to 7 days. Print RX, Disp-21 tablet, R-0 Dx: 1. Postoperative pain CONTINUE these medications which have NOT CHANGED LORazepam (ATIVAN) 1 mg tablet Take 1 mg by mouth twice daily. Historical Med buprenorphine (BUTRANS) 5 mcg/hour Apply 1 Patch as directed once each week. Historical Med pregabalin (LYRICA) 50 mg capsule Take 50 mg by mouth twice daily. Historical Med atorvastatin (LIPITOR) 80 mg tablet Take 1 tablet by mouth daily at bedtime. For cholesterol. Normal, Disp-90 tablet, R-0 Dx: 1. Hyperlipidemia, unspecified hyperlipidemia type insulin aspart (NOVOLOG) 100 unit/mL soln Inject 20-40 Units subcutaneously three times daily with meals. Historical Med, Disp-1 Vial, R-0 ondansetron (ZOFRAN) 4 mg tablet Take 4 mg by mouth as needed. Historical Med, Disp-20 tablet, R-0 insulin glargine (BASAGLAR KWIKPEN) 100 unit/mL (3 mL) inpn Inject 30 units in the morning and 40 units at night Indications: DIABETES MELLITUS Med Update !! COMPOUNDED PRESCRIPTION Convatec - Juanita Cohesive Ostomy Seals #[id number] Dx: V45.89; V44.2 Print RX, Disp-20 Each, R-11 Dx: 1. S/P total colectomy 2. Ileostomy in place ([facility]) !! COMPOUNDED PRESCRIPTION Convatec - Esteem 10 drainable ostomy pouch #[id number] Dx: V45.89; V44.2 Print RX, Disp-20 bag, R-11 Dx: 1. S/P total colectomy 2. Ileostomy in place ([facility]) DULoxetine (CYMBALTA) 60 mg capsule Take 1 capsule by mouth twice daily. Normal, Disp-180 capsule, R-3 Dx: 1. Depression with anxiety 2. Chest pain at rest !! COMPOUNDED PRESCRIPTION PEREZ AND NEPHEW Skin-Prep. V45.89, V44.2. Use as directed twice a week. Print RX, Disp-100 Each, R-6 Dx: 1. Ileostomy in place (HCC) insulin needles, DISPOSABLE, (BD INSULIN PEN NEEDLE UF) 31 gauge x 5/16 ndle Inject 4-6 times daily Normal, Disp-200 Each, R-11 TENS Units windy 1 Device as directed. Print RX, Disp-1 Device, R-0 Dx: 1. Chronic bilateral low back pain with right-sided sciatica isosorbide dinitrate (ISORDIL, SORBITRATE) 30 mg tablet Take 1 tablet by mouth three times daily. Historical Med Dx: 1. Coronary artery disease involving [place] heart with angina pectoris, unspecified vessel or lesion type ([facility]) blood sugar diagnostic (FREESTYLE LITE STRIPS) test strip TEST BLOOD SUGAR(S)5-6 DAILY. DX: DIABETES. INSULIN: YES Normal, Disp-150 Strip, R-11 furosemide (LASIX) 20 mg tablet Take 1 tablet by mouth once daily. Historical Med, R-0 Dx: 1. Congestive heart failure, unspecified congestive heart failure chronicity, unspecified congestive heart failure type ([facility]) !! COMPOUNDED PRESCRIPTION SHARPS IRONER OR PRESSER. Dx: E11.65. On insulin. Print RX, Disp-1 Each, R-0 Dx: 1. Diabetes mellitus type 2, uncontrolled, without complications ([facility]) !! COMPOUNDED PRESCRIPTION CONVATEC Allkare Adhesive remover. V45.89, V44.2. Use twice a week as directed. Print RX, Disp-100 Each, R-6 Dx: 1. Ileostomy in place (HCC) magnesium oxide (MAG-OX) 400 mg tablet Take 1 tablet by mouth three times daily. Med Update metoprolol tartrate, short acting, 50 mg tablet Take 1.5 tablets by mouth three times daily. Historical Med, R-0 aspirin ([employer]) 81 mg chewable tablet Take 81 mg by mouth once daily. Historical Med Dx: 2. CAD (coronary artery disease) nitroglycerin sublingual (NITROSTAT) 0.4 mg SL tablet Dissolve 0.4 mg under the tongue every 5 minutes as needed. Historical Med Dx: 2. CAD (coronary artery disease) clopidogrel (PLAVIX) 75 mg tablet Take 75 mg by mouth once daily. Historical Med Dx: 2. CAD (coronary artery disease) !! - Potential duplicate medications found. Please discuss with provider. STOP taking these medications oxyCODONE-acetaminophen (PERCOCET) 5-325 mg tablet Comments: Reason for Stopping: Future Appointments Date Time Provider Department Center 09/27/2017 2:20 PM Dean May Milton [facility] 09/27/2017 3:00 PM Stoma Therapy [facility] 11/25/2017 12:40 PM Willian [facility] TIME OF CARE: Discharge Management: I personally spent greater than 30 minutes involved in the discharge management of this patient. SIGNATURE: Lilia Reid PA-C PATIENT NAME: Aiyln Méndez DATE: 08/26/2017 TIME: 3:00 PM PAGER/CONTACT #: [phone] XR CHEST 2V FRONTAL/LAT Observed: 08/22/2017 Status: F Source: [place] 8:45 AM [facility] REPOSITORY * * *Final Report* * * DATE OF EXAM: Aug 22 2017 8:45AM FABIOLA [id number] - XR CHEST 2V FRONTAL/LAT / PROCEDURE REASON: Shortness of breath * * * * Physician Interpretation * * * * EXAMINATION: CHEST RADIOGRAPH (2 VIEW FRONTAL and LATERAL) Clinical History: Shortness of breath MQ: XC2_5 Comparison: 08/11/2017 RESULT: Lines, tubes, and devices: Patient is status post median sternotomy Lungs and pleura: Lungs are clear of focal consolidation. No pleural effusion or pneumothorax is noted. Cardiomediastinal silhouette: The cardiomediastinal silhouette is unchanged. Coronary artery stent is identified. Other: Endplate degenerative changes are present in the thoracic spine. IMPRESSION: Please see body of the report. Jboss Developer: PSCB Transcribe Date/Time: Aug 22 2017 9:14A Dictated by : CAM COBB MD This examination was interpreted and the report reviewed and electronically signed by: CAM COBB MD on Aug 22 2017 9:14AM EST [id number] [id number] Observed: 08/22/2017 Status: COMPLETED Source: [place] 7:32 AM [facility] REPOSITORY HNO ID: [id number] Author: Sameer Frazier MD Service: Colorectal Author Type: Resident Type: Progress Notes Filed: 08/22/2017 7:33 AM Note Text: COLORECTAL SURGERY POSTOP PROGRESS NOTE SERVICE DATE: 08/22/2017 SERVICE TIME: 7:32 AM POD #3 Exploratory laparotomy, lysis of adhesions, curettage and drainage of abscess Subjective INTERVAL HPI and PERTINENT ROS: No acute events overnight Still requiring nasal cannula MEDICATIONS: Current hospital medications: insulin glargine 80 Units pen (long acting) (LANTUS SOLOSTAR, BASAGLAR KWIKPEN) 80 Units SUBCUTANEOUS BID 8A/BEDTIME insulin lispro 25 Units injection (rapid acting) (HumaLOG) 25 Units SUBCUTANEOUS w MEALS lidocaine 10 mg/mL (1 %) 1-2 mg injection (XYLOCAINE) 0.1- 0.2 mL INTRADERMAL PRN lactated ringers infusion 50 mL/hr INTRAVENOUS CONTINUOUS dextrose 40 % 15 g 15 g ORAL PRN glucagon 1 mg injection (GLUCAGEN) 1 mg INTRAMUSCULAR PRN dextrose 50% in water 25 mL syringe 12.5 g INTRAVENOUS PRN pregabalin 50 mg cap(s) (LYRICA) 50 mg ORAL BID metoprolol tartrate (short acting) 75 mg tab(s) (LOPRESSOR) 75 mg ORAL TID furosemide 20 mg tab(s) (LASIX) 20 mg ORAL DAILY isosorbide dinitrate 30 mg tab(s) (ISORDIL) 30 mg ORAL TID DULoxetine 60 mg cap(s) (CYMBALTA) 60 mg ORAL BID atorvastatin 80 mg tab(s) (LIPITOR) 80 mg ORAL AT BEDTIME potassium chloride ER 20-40 mEq tab(s) (K-DUR, KLOR-CON) 20- 40 mEq ORAL PRN potassium chloride iv piggyback 20 mEq/100 mL 20 mEq INTRAVENOUS PRN magnesium sulfate iv piggyback 2 g in D5W 50 mL 2 g INTRAVENOUS PRN(NO DISPENSE) sodium phosphate 45 mmol in NaCl 0.9% 250 mL 45 mmol INTRAVENOUS PRN(NO DISPENSE) ondansetron (PF) 4 mg injection (ZOFRAN) 4 mg INTRAVENOUS q 6 H PRN acetaminophen 1,000 mg tab(s) (TYLENOL) 1,000 mg ORAL q 6 H gabapentin 300 mg cap(s) (NEURONTIN) 300 mg ORAL q 8 H diazePAM 2 mg tab(s) (VALIUM) 2 mg ORAL q 8 H PRN HYDROmorphone 0.2 mg injection (DILAUDID) 0.2 mg INTRAVENOUS q 3 H PRN insulin lispro injection (rapid acting) (HumaLOG) SUBCUTANEOUS q 6 H traMADol 50 mg tab(s) (ULTRAM) 50 mg ORAL q 6 H PRN aztreonam 1 g in D5W 100 mL MB+ (AZACTAM) 1 g INTRAVENOUS q 6 HR clindamycin 600 mg in D5W 50 mL (CLEOCIN) 600 mg INTRAVENOUS q 8 H Objective PHYSICAL EXAM: BP 125/54 Pulse 67 Temp 36.6 ?C (97.8 ?F) (Oral) Resp 16 Ht 170.2 cm (5' 7) Wt 93.4 kg (206 lb) SpO2 100% BMI 32.26 kg/m? Intake/Output Summary (Last 24 hours) at 08/22/17 0732 Last data filed at 08/22/17 0427 Gross per 24 hour Intake 1875 ml Output 3075 ml Net -1200 ml Abdomen soft, appropriately tender, non-distended LABS: CBC, BMP, MG, PHOS Recent Labs 08/20/17 2337 08/19/17 2230 08/09/17 1040 05/24/17 1203 09/15/16 1248 05/28/16 1215 12/27/13 1109 07/10/08 0500 07/09/08 0530 WBC 12.51* 9.73 8.99 -- -- -- 9.05 < > 12.67* < > 12.81* 12.44* HB 11.9 12.9 13.7 -- -- -- 13.3 < > 12.5 < > 12.5 12.5 HCT 37.7 39.6 44.1 -- -- -- 42.6 < > 39.8 < > 38.7 37.5 PLT 159 168 181 -- -- -- 210 < > 230 < > 203 214 NA 137 141 141 -- Test sent to [facility]. < > 138 < > 140 < > 136 132 K 4.2 3.9 4.6 -- Test sent to [facility]. < > 4.5 < > 3.9 < > 5.3* 4.3 CHLOR 99 99 101 -- Test sent to [facility]. < > 100 < > 103 < > 102 99 CO2 27 28 26 -- Test sent to [facility]. < > 22 < > 23 < > 25 27 BUN 15 16 20 -- Test sent to [facility]. < > 19 < > 44* < > 17 13 CREAT 1.22* 0.99* 1.08* 1.20 Test sent to [facility]. < > 1.32* < > 1.42* < > 0.95 0.95 GLUC 242* 130* 113* -- Test sent to [facility]. < > 222* < > 103* < > 113* 119* CA 8.7 8.8 11.1* -- Test sent to [facility]. < > 9.8 < > 9.6 < > 9.6 9.2 MG 1.9 1.4* -- -- -- -- -- -- 1.7 -- 2.0 1.9 P 2.5* 3.9 -- -- -- -- -- -- -- -- 4.3 3.6 < > = values in this interval not displayed. Liver Function, Amylase, AND Lipase Recent Labs 08/09/17 1040 09/15/16 1248 06/23/16 0935 05/28/16 1215 TPROT 7.5 Test sent to [facility]. 7.5 7.1 ALB 4.3 Test sent to [facility]. 4.1 4.2 ALT 41* Test sent to [facility]. 18 22 AST 47* Test sent to [facility]. 21 21 ALKPHOS 168* Test sent to [facility]. 132* 121* TBILI 0.5 Test sent to [facility]. 0.3 0.4 Coags Recent Labs 06/28/08 1745 06/06/08 1821 APTT 29.2 29.4 INR 1.0 1.0 DATA: Diagnostic tests reviewed for today's visit: Most recent labs and imaging results. Assessment/Plan This is a 57-year-old female patient with a persistent intraabdominal infection who is now POD2 following exploratory laparotomy, lysis of adhesions, curettage and drainage of abscess. She is recovering well thus far with return of stoma function. ? Diet: GIS as tolerated Multimodal pain control -minimize narcotics -lidocaine patches Wean O2 as tolerated -will obtained CXR AP/Lat and room air ABG (pulm consult if abnormal) Routine postop care: Encourage ambulation, Incentive Spirometry Home once able to wean O2 Lira: No Lira Present Medication and Non-Pharmacologic VTE Prophylaxis/Anticoagulants 08/19/17 1730 vte pharmacologic prophylaxis contraindicated (ar,id) 08/19/17 1730 pneumatic compression stockings (ar,id) 08/19/17 0715 intermittent pneumatic compression VTE Prophylaxis: VTE prophylaxis appropriate Reason for Continuing Antibiotics: N/A *A review of daily goals, interventions, and plan of care with the multidisciplinary team and patient has been conducted. The patient?s concerns have been addressed and he/she agrees to proceed with today?s plan of care. SIGNATURE: Sameer Frazier MD PATIENT NAME: Ailyn Méndez DATE: August 22, 2017 TIME: 7:33 AM PAGER/CONTACT #: [phone] PT ED Observed: 08/21/2017 Status: COMPLETED Source: [place] 11:51 AM [facility] REPOSITORY [facility] ID: [id number] Author: Erin Pedersen (Diet-T) Service: Nutrition Therapy Author Type: Computational Sciences Professor Type: Patient Education Filed: 08/21/2017 11:58 AM Note Text: NUTRITION PATIENT EDUCATION TOPIC: Survival Skills: Diet and Lifestyle Changes: Diet PATIENT NAME: Ailyn Méndez SERVICE DATE: August 21, 2017 Diagnosis: ADULT: Fistula of intestine READINESS TO LEARN Motivation to Learn: Interested Family Support: Unable to assess - Family not present Instruction Provided to: Patient Factors Affecting Learning: None Physical Limitations Affecting Learning: None LEARNING RESPONSE Patient / Family Response: Verbalizes understanding of CORS/GI Soft Diet: Rationale behind diet restriction, foods allowed/to avoid, small frequent meals, chewing thoroughly, fluid recommendations, how long to continue on diet as well as how to transition off diet and(if applicable) dealing with potential problems (ostomy patients only). Method of Instruction: Individual instruction Written instruction - handouts Verbal instruction Instructional Aids Used: NA Supplemental Material Provided to Patient: Eating right and avoiding dehydration after bowel surgery, ORS handout Referral (Recommendation): None MNT Billing Type: Routine Care/15 min 2 units Sylvie Moulton Pager: [phone] August 21, 2017 11:51 AM NUTRITION Observed: 08/21/2017 Status: COMPLETED Source: [place] 11:49 AM [facility] REPOSITORY [facility] ID: [id number] Author: Erin Pedersen (Diet-T) Service: Nutrition Therapy Author Type: Computational Sciences Professor Type: Nutrition Filed: 08/21/2017 11:58 AM Note Text: NUTRITION THERAPY FOLLOW-UP NOTE SERVICE DATE: 08/21/2017 SERVICE TIME: 9:35am Anthropometrics: Height: 170.2 cm (5' 7) Current Weight: Weight: 93.4 kg (206 lb) Body mass index is 32.26 kg/m?. 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 No Allergies: ALLERGIES Allergen Reactions - Cinnamon Anaphylaxis Airborne and ingested reactions: throat AND lips swell, SOB - Dicyclomine Vomiting - Azulfidine [Sulfasa* Hives - Codeine Intolerance Stops ileostomy functioning-severe constipation - Flagyl [Metronidazo* Hives - Fluzone High-Dose 2* Shortness of Breath Difficulty breathing, chest pain - Glucophage [Metform* GI Upset - Influenza Virus Vac* Shortness of Breath, Other: See Comments Chest pain - Penicillins Hives - Sulfa (Sulfonamide * Hives - Victoza [Liraglutid* Other: See Comments Acute pancreatitis Reason for Visit: Nutrition screen: Food allergies Food allergies: Cinnamon Patient concerns/Issues: Patient confirmed allergy to cinnamon, no other issues prior to admit. Will continue to monitor. Education needs: Patient education completed for: Eating right and avoiding dehydration after bowel surgery, ORS. Refer to patient education notes. Nursing Admission Assessment Malnutrition Score Tool: 0 Plan of Care: Recommendation No problems noted at this time. Will screen again within 7 days Discharge Plan: Home on diet ordered. MNT Billing Type: Routine Care/15 min 2 units SIGNATURE: Sylvie Moulton PATIENT NAME: Ailyn Méndez DATE: August 21, 2017 TIME: 11:49 AM PAGER: [phone] PROGRESS Observed: 08/21/2017 Status: COMPLETED Source: [place] 10:58 AM [facility] REPOSITORY HNO ID: [id number] Author: Woo Jeffers MD Service: Colorectal Author Type: Resident Type: Progress Notes Filed: 08/21/2017 11:01 AM Note Text: COLORECTAL SURGERY POSTOP PROGRESS NOTE SERVICE DATE: 08/21/2017 SERVICE TIME: 10:58 AM POD #2 Exploratory laparotomy, lysis of adhesions, curettage and drainage of abscess Subjective INTERVAL HPI and PERTINENT ROS: Pain well controlled Stoma functioning Voiding after catheter out Ambulating Remains on nasal cannula MEDICATIONS: Current hospital medications: insulin glargine 80 Units pen (long acting) (LANTUS SOLOSTAR, BASAGLAR KWIKPEN) 80 Units SUBCUTANEOUS BID 8A/BEDTIME insulin lispro 25 Units injection (rapid acting) (HumaLOG) 25 Units SUBCUTANEOUS w MEALS lidocaine 10 mg/mL (1 %) 1-2 mg injection (XYLOCAINE) 0.1- 0.2 mL INTRADERMAL PRN lactated ringers infusion 50 mL/hr INTRAVENOUS CONTINUOUS dextrose 40 % 15 g 15 g ORAL PRN glucagon 1 mg injection (GLUCAGEN) 1 mg INTRAMUSCULAR PRN dextrose 50% in water 25 mL syringe 12.5 g INTRAVENOUS PRN pregabalin 50 mg cap(s) (LYRICA) 50 mg ORAL BID metoprolol tartrate (short acting) 75 mg tab(s) (LOPRESSOR) 75 mg ORAL TID furosemide 20 mg tab(s) (LASIX) 20 mg ORAL DAILY isosorbide dinitrate 30 mg tab(s) (ISORDIL) 30 mg ORAL TID DULoxetine 60 mg cap(s) (CYMBALTA) 60 mg ORAL BID atorvastatin 80 mg tab(s) (LIPITOR) 80 mg ORAL AT BEDTIME potassium chloride ER 20-40 mEq tab(s) (K-DUR, KLOR-CON) 20- 40 mEq ORAL PRN potassium chloride iv piggyback 20 mEq/100 mL 20 mEq INTRAVENOUS PRN magnesium sulfate iv piggyback 2 g in D5W 50 mL 2 g INTRAVENOUS PRN(NO DISPENSE) sodium phosphate 45 mmol in NaCl 0.9% 250 mL 45 mmol INTRAVENOUS PRN(NO DISPENSE) ondansetron (PF) 4 mg injection (ZOFRAN) 4 mg INTRAVENOUS q 6 H PRN acetaminophen 1,000 mg tab(s) (TYLENOL) 1,000 mg ORAL q 6 H gabapentin 300 mg cap(s) (NEURONTIN) 300 mg ORAL q 8 H diazePAM 2 mg tab(s) (VALIUM) 2 mg ORAL q 8 H PRN HYDROmorphone 0.2 mg injection (DILAUDID) 0.2 mg INTRAVENOUS q 3 H PRN insulin lispro injection (rapid acting) (HumaLOG) SUBCUTANEOUS q 6 H traMADol 50 mg tab(s) (ULTRAM) 50 mg ORAL q 6 H PRN aztreonam 1 g in D5W 100 mL MB+ (AZACTAM) 1 g INTRAVENOUS q 6 HR clindamycin 600 mg in D5W 50 mL (CLEOCIN) 600 mg INTRAVENOUS q 8 H Objective PHYSICAL EXAM: BP 129/55 Pulse 70 Temp 36.9 ?C (98.5 ?F) (Oral) Resp 18 Ht 170.2 cm (5' 7) Wt 93.4 kg (206 lb) SpO2 93% BMI 32.26 kg/m? Intake/Output Summary (Last 24 hours) at 08/21/17 1058 Last data filed at 08/21/17 0634 Gross per 24 hour Intake 1475 ml Output 2525 ml Net -1050 ml Abdomen soft, appropriately tender, non-distended LABS: CBC, Coags, BMP, Mg, Phos Recent Labs 08/20/17 2337 08/19/17 2230 WBC 12.51* 9.73 HB 11.9 12.9 HCT 37.7 39.6 PLT 159 168 NA 137 141 K 4.2 3.9 CHLOR 99 99 CO2 27 28 BUN 15 16 CREAT 1.22* 0.99* GLUC 242* 130* CA 8.7 8.8 MG 1.9 1.4* P 2.5* 3.9 DATA: Diagnostic tests reviewed for today's visit: Most recent labs and imaging results. Assessment/Plan This is a 57-year-old female patient with a persistent intraabdominal infection who is now POD2 following exploratory laparotomy, lysis of adhesions, curettage and drainage of abscess. She is recovering well thus far with return of stoma function. ? Diet: GIS as tolerated Multimodal pain control -minimize narcotics -lidocaine patches Wean O2 as tolerated Routine postop care: Encourage ambulation, Incentive Spirometry Home once able to wean O2 Lira: No Lira Present Medication and Non-Pharmacologic VTE Prophylaxis/Anticoagulants 08/19/17 1730 vte pharmacologic prophylaxis contraindicated (ar,id) 08/19/17 1730 pneumatic compression stockings (ar,id) 08/19/17 0715 intermittent pneumatic compression VTE Prophylaxis: VTE prophylaxis appropriate Reason for Continuing Antibiotics: N/A *A review of daily goals, interventions, and plan of care with the multidisciplinary team and patient has been conducted. The patient?s concerns have been addressed and he/she agrees to proceed with today?s plan of care. SIGNATURE: Woo Jeffers MD PATIENT NAME: Ailyn Méndez DATE: August 21, 2017 TIME: 10:58 AM PAGER/CONTACT #: [phone] [facility]IED HEALTH Observed: 08/21/2017 Status: COMPLETED Source: [place] 10:25 AM [facility] REPOSITORY [facility] ID: [id number] Author: Myla Burgos) JUVENCIO Beckwith Service: Ostomy Author Type: Registered Nurse Type: Allied Health Filed: 08/21/2017 10:30 AM Note Text: [place] [address] OSTOMY SUPPLY ORDER FORM Patient: Ailyn Méndez Patient Address: [address] [place] [address] Gender: female Date of : 1960 Type of Stoma: End Ileostomy Diagnosis: Ulcerative Colitis K51.90 Item and Description Qty 30 Day Use Coloplast Valentin One-Piece Drainable Pouches: #[id number] Convex Light 1 3/8 Precut Opaque Misc Accessory: Coloplast Elastic Barrier Strips # [id number] Moldable Ring: Coloplast Brava 4.2mm Moldable # [id number] 10/Box 20/Box 20/Box . . . . 1 Box 1 Box 1 Box . . Refills: 12 Attending Physician: Dr. Rose For immediate authorization, please contact the physician?s office. [facility] Nurse: MT Brooks Note: pt may need to order a smaller size precut if her stoma size changes as needed. SIGNATURE: Myla Beckwith RN PATIENT NAME: Ailyn Méndez DATE: August 21, 2017 TIME: 10:26 AM CONTACT #: [phone] ALLIED HEALTH Observed: 08/21/2017 Status: COMPLETED Source: [place] 9:40 AM [facility] REPOSITORY [facility] ID: [id number] Author: Myla (Rn) JUVENCIO Beckwith Service: Ostomy Author Type: Registered Nurse Type: Allied Health Filed: 08/21/2017 9:46 AM Note Text: ET/WOCN Nursing Consult Topic: ET/WOCN Consultation Note ET Outcome: Pt seen today to fit into home system after surgery for exp lap, lysis of adhesions ET's Next Scheduled Visit: ready for d/c Stoma Type: End ileostomy Diameter:1 3/8 Location: LLQ Protrusion: Budded Mucosal condition and color: Red and moist Mucocutaneous junction Intact Peristomal Skin: Clear and intact Location of Skin Impairment: none Peristomal contour: Rounded Supportive Tissue: Semisoft Character of output: liquid brown Emptying frequency per day: per nursing Current pouching system: Pt is currently wearing a 1 inch convatec convex one piece pouch. Her stoma measures at this time 1 3/8. I discussed with pt the importance of using the right size opening. She was seen by stoma nursing in April and fitted into a 1 1/8 size flange, but she did not fill the script. Her stoma may be swollen from surgery. Pt instructed to measure the stoma one time per week for 4 weeks and also with any 5 pound weight gain or loss. Current wearing time: 2 days Recommendations: Pouching System: placed in coloplast 1 3/8 precut convex one piece flange and brave 4.2 ring. Midline Abdominal Incision: Other: covered with drsg, student nurse to change later Comment: pt given 4 sets of supplies and new script too fill. Time Increment: 1 hour Myla Beckwith RN, BSN,CWOCN CBC AND DIFFERENTIAL Collected: 08/20/2017 Status: F Source: [place] 11:37 PM [facility] REPOSITORY TYPE CODE TESTS RESULT OUT OF REFERENCE UNITS RANGE LAB WBC 3.70-11.00 k/uL WBC High 12.51 LAB RBC 3.90-5.20 m/uL RBC 4.34 LAB HGB 11.5-15.5 g/dL Hemoglobin 11.9 LAB HCT 36.0-46.0 % Hematocrit 37.7 LAB MCV 80.0-100.0 fL MCV 86.9 LAB MCH 26.0-34.0 pG MCH 27.4 LAB MCHC 30.5-36.0 g/dL MCHC 31.6 LAB RDWCV 11.5-15.0 % RDW-CV High 15.5 LAB PLTCT 150-400 k/uL Platelet Count 159 LAB MPV 9.0-12.7 fL MPV High 13.0 LAB ANEUT % Neut% 78.8 LAB AANEUT 1.45-7.50 k/uL Abs Neut High 9.87 LAB ALYMP % Lymph% 11.3 LAB AALYMP 1.00-4.00 k/uL Abs Lymph 1.41 LAB AMONO % Butler% 6.9 LAB AAMONO <0.87 k/uL Abs Butler 0.86 LAB AEOS % Eosin% 2.5 LAB AAEOS <0.46 k/uL Abs Eosin 0.31 LAB ABASO % Baso% 0.5 LAB AABASO <0.11 k/uL Abs Baso 0.06 LAB AUNRBC 0 /100 WBC NRBCs 0.0 LAB ABNRBC <0.01 k/uL Absolute nRBC <0.01 LAB DTYP DTYPE Auto Diff Performed By: #### CBCDIF, BMP, MG1, PHOS, CAROLEE #### [facility] [address] [place] [id number] BASIC METABOLIC PANL Collected: 08/20/2017 Status: F Source: [place] 11:37 PM [facility] RE[facility] TYPE CODE TESTS RESULT OUT OF REFERENCE UNITS RANGE LAB GLU 74-99 mg/dL High Glucose 242 Result Comment: The [place] Diabetes Association (ADA) provides guidance for cutoff values for fasting glucose and random glucose. The ADA defines fasting as no caloric intake for at least 8 hours. Fas ting plasma glucose results between 100 to 125 mg/dL indicate increased risk for diabetes (prediabetes). Fasting plasma glucose results greater than or equal to 126 mg/dL meet the criteria for diagnosis of diabetes. In the absence of unequivocal hyperglycemia, results should be confirmed by repeat testing. In a patient with classic symptoms of hyperglycemia or hyperglycemic crisis, random plasma glucose results greater than or equal to 200 mg/dL meet the criteria for diagnosis of diabetes. Reference: Standards of Medical Care in Diabetes 2016, [place] Diabetes Association. Diabetes Care. 2016.39(Suppl 1). LAB BUN 7-21 mg/dL BUN 15 LAB CRET 0.58-0.96 mg/dL Creatinine High 1.22 LAB NA 136-144 mmol/L Sodium 137 LAB K 3.7-5.1 mmol/L Potassium 4.2 LAB CL 97-105 mmol/L Chloride 99 LAB CO2 22-30 mmol/L CO2 27 LAB AGAP 9-18 mmol/L Anion Gap 11 LAB CA 8.5-10.2 mg/dL Calcium, Total 8.7 LAB GFRAA eGFR- Amer. 55 LAB GFRNAA . eGFR-All Other Races 45 Result Comment: eGFR (Estimated GFR) Units of measure: mL/min/1.73 meters squared eGFR is derived from the reexpressed MDRD Study equation using the following parameters: serum creatinine, age, gender and race. The creatinine assay has been calibrated to be traceable to IDMS. An eGFR <60 mL/min/1.73m2 for >3 months is consistent with chronic kidney disease. Refer to KDOQI guidelines for clinical interpretation. In patients with unstable renal function, e.g. those with acute kidney injury, the eGFR may not accurately reflect actual GFR. Performed By: #### CBCDIF, BMP, MG1, PHOS, CAROLEE #### [facility] [employer] [address] [address] MAGNESIUM Collected: 08/20/2017 Status: F Source: [place] 11:37 PM [facility] REPOSITORY TYPE CODE TESTS RESULT OUT OF REFERENCE UNITS RANGE LAB MG 1.7-2.3 mg/dL Magnesium 1.9 Performed By: #### CBCDIF, BMP, MG1, PHOS, CAROLEE #### [facility] [employer] [address] [place] [address] PHOSPHORUS Collected: 08/20/2017 Status: F Source: [place] 11:37 PM [facility] REPOSITORY TYPE CODE TESTS RESULT OUT OF REFERENCE UNITS RANGE LAB PHOS 2.7-4.8 mg/dL Low Phosphorus 2.5 Performed By: #### CBCDIF, BMP, MG1, PHOS, CAROLEE #### [facility] [address] [place], [place] [address] TROPONIN T Collected: 08/20/2017 Status: F Source: [place] 11:37 PM [facility] REPOSITORY TYPE CODE TESTS RESULT OUT OF REFERENCE UNITS RANGE LAB TROPT 0.000-0.029 ng/mL Troponin T <0.010 Performed By: #### CBCDIF, BMP, MG1, PHOS, CAROLEE #### [facility] [address] [place], [place] [address] ALLIED HEALTH Observed: 08/20/2017 Status: COMPLETED Source: [place] 3:49 PM [facility] REPOSITORY [facility] ID: [id number] Author: Cady (Rn) Damien, JUVENCIO Service: Wound/Ostomy Author Type: Registered Nurse Type: Allied Health Filed: 08/20/2017 3:53 PM Note Text: ET/WOCN Nursing Consult Topic: ET/WOCN Consultation Note ET Outcome: pt is POD #1 for surgery unrelated to stoma. Pt has had stoma for quite some time. She uses ConvaTec one piece drainable convex pouch with moldable ring and skin prep. Pt understand we do not carry that system. Pt abd distended and not appropriate for that system. Post op pouch intact with some brown stool noted in pouch. Post op kit at bedside ET's Next Scheduled Visit: 08/21 fitting for comparable home system Time Increment: 15 minutes Cady NAVARRON RN WOC Nursing WO Nursing - Please place consult via [employer]. Thank you. (M-F: [phone]; Weekends AND Holidays: [phone]). PROGRESS Observed: 08/20/2017 Status: COMPLETED Source: [place] 3:20 PM [facility] REPOSITORY [facility] ID: [id number] Author: Chantel Mays (Pa) Service: Colorectal Author Type: Physician Wire Weaver Type: Progress Notes Filed: 08/20/2017 3:30 PM Note Text: COLORECTAL SURGERY POSTOP PROGRESS NOTE SERVICE DATE: 08/20/2017 SERVICE TIME: 1000 POD #1 Exploratory laparotomy, lysis of adhesions, curettage and drainage of abscess Subjective INTERVAL HPI and PERTINENT ROS: Pain well controlled Stoma functioning Voiding after catheter out Ambulating MEDICATIONS: Current hospital medications: lidocaine 10 mg/mL (1 %) 1-2 mg injection (XYLOCAINE) 0.1- 0.2 mL INTRADERMAL PRN lactated ringers infusion 50 mL/hr INTRAVENOUS CONTINUOUS dextrose 40 % 15 g 15 g ORAL PRN glucagon 1 mg injection (GLUCAGEN) 1 mg INTRAMUSCULAR PRN dextrose 50% in water 25 mL syringe 12.5 g INTRAVENOUS PRN pregabalin 50 mg cap(s) (LYRICA) 50 mg ORAL BID metoprolol tartrate (short acting) 75 mg tab(s) (LOPRESSOR) 75 mg ORAL TID furosemide 20 mg tab(s) (LASIX) 20 mg ORAL DAILY isosorbide dinitrate 30 mg tab(s) (ISORDIL) 30 mg ORAL TID DULoxetine 60 mg cap(s) (CYMBALTA) 60 mg ORAL BID atorvastatin 80 mg tab(s) (LIPITOR) 80 mg ORAL AT BEDTIME potassium chloride ER 20-40 mEq tab(s) (K-DUR, KLOR-CON) 20- 40 mEq ORAL PRN potassium chloride iv piggyback 20 mEq/100 mL 20 mEq INTRAVENOUS PRN magnesium sulfate iv piggyback 2 g in D5W 50 mL 2 g INTRAVENOUS PRN(NO DISPENSE) sodium phosphate 45 mmol in NaCl 0.9% 250 mL 45 mmol INTRAVENOUS PRN(NO DISPENSE) ondansetron (PF) 4 mg injection (ZOFRAN) 4 mg INTRAVENOUS q 6 H PRN acetaminophen 1,000 mg tab(s) (TYLENOL) 1,000 mg ORAL q 6 H gabapentin 300 mg cap(s) (NEURONTIN) 300 mg ORAL q 8 H diazePAM 2 mg tab(s) (VALIUM) 2 mg ORAL q 8 H PRN HYDROmorphone 0.2 mg injection (DILAUDID) 0.2 mg INTRAVENOUS q 3 H PRN insulin glargine 30 Units pen (long acting) (LANTUS SOLOSTAR, BASAGLAR KWIKPEN) 30 Units SUBCUTANEOUS AT BEDTIME insulin lispro injection (rapid acting) (HumaLOG) SUBCUTANEOUS q 6 H traMADol 50 mg tab(s) (ULTRAM) 50 mg ORAL q 6 H PRN aztreonam 1 g in D5W 100 mL MB+ (AZACTAM) 1 g INTRAVENOUS q 6 HR clindamycin 600 mg in D5W 50 mL (CLEOCIN) 600 mg INTRAVENOUS q 8 H Objective PHYSICAL EXAM: BP 121/51 Pulse 81 Temp 37.2 ?C (98.9 ?F) (Oral) Resp 16 Ht 170.2 cm (5' 7) Wt 93.4 kg (206 lb) SpO2 95% BMI 32.26 kg/m? Intake/Output Summary (Last 24 hours) at 08/20/17 1521 Last data filed at 08/20/17 1425 Gross per 24 hour Intake 1710 ml Output 3505 ml Net -1795 ml Abdomen soft, appropriately tender, non-distended LABS: CBC, Coags, BMP, Mg, Phos Recent Labs 08/19/17 2230 WBC 9.73 HB 12.9 HCT 39.6 PLT 168 NA 141 K 3.9 CHLOR 99 CO2 28 BUN 16 CREAT 0.99* GLUC 130* CA 8.8 MG 1.4* P 3.9 DATA: Diagnostic tests reviewed for today's visit: Most recent labs and imaging results. Assessment/Plan POSTOP PLANS: This is a 57-year-old female patient with a persistent intraabdominal infection who is now POD1 following exploratory laparotomy, lysis of adhesions, curettage and drainage of abscess. She is recovering well thus far with return of stoma function. Diet: advance to GIS as tolerated Multimodal pain control -minimize narcotics -add lidocaine patches Discontinue lira catheter Routine postop care: Encourage ambulation, Incentive Spirometry Lira: No Continued Need For Lira Catheterization Medication and Non-Pharmacologic VTE Prophylaxis/Anticoagulants 08/19/17 1730 vte pharmacologic prophylaxis contraindicated ([place], [place]) 08/19/17 1730 pneumatic compression stockings ([place]) 08/19/17 0715 intermittent pneumatic compression VTE Prophylaxis: VTE prophylaxis appropriate Reason for Continuing Antibiotics: Abscess *A review of daily goals, interventions, and plan of care with the multidisciplinary team and patient has been conducted. The patient?s concerns have been addressed and he/she agrees to proceed with today?s plan of care. SIGNATURE: Chantel Mays PA-C PATIENT NAME: Ailyn Méndez DATE: August 20, 2017 TIME: 3:21 PM PAGER/CONTACT #: [phone] CASE MGT INIT Observed: 08/20/2017 Status: COMPLETED Source: [place] 2:29 PM [facility] REPOSITORY [facility] ID: [id number] Author: Patsy GomezRn) JUVENCIO Gonzales Service: Care Management Author Type: Registered Nurse Type: Care Mgt Initial Assessment Filed: 08/20/2017 2:47 PM Note Text: CARE MANAGEMENT: ASSESSMENT AND DISCHARGE PLAN SERVICE DATE: 08/20/2017 SERVICE TIME: 2:29 PM PRIMARY CARE PHYSICIAN: Shannan Mcgrath MD ADMISSION STATUS: Inpatient Needs Prior to Discharge: (medical clearance) 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 Health Insurance: [facility] MEDICAID [employer] Health Issues Impacting Discharge Plan: Hx of HTN, Crihns, DM, CHF, CAD, Last Admission Date: Previous admit date: 01/22/2011 Is this Within the Past 30 days? No Advance Directive: Current Advance Directive: Health Care Power of Bingo Floater In Chart: No Youth Liaison Officer Assisted with AD Completion: No Unable to Assist Due To:: Other: See Comment Health Literacy: 1. How often do you need to have someone help you when you read instructions, pamphlets, or other written material from your doctor or pharmacy? Never - 1 2. How confident are you filling out medical forms by yourself? Extremely - 1 If Patient scores > 3 on either question, the following interventions were put into place: Patient did not score > 3 FUNCTIONAL AND COGNITIVE/BEHAVIORAL PRIOR TO ADMISSION: Baseline Mental Status: Alert AND Oriented, Person, Place , Time and Situation Functional Status: Independent Does Patient Currently Receive Any Community Services or Home Care? None Equipment Prior to Admission: Bi-level Positive Airway Pressure/Continuous Positive Airway Pressure Has the Patient Been in a Jail Facility in the Past 30 days? No SOCIAL: Living Arrangement: Home Lives With: Alone Financial Resources: Disabled Primary Contact: Extended Emergency Contact Information Primary Emergency Contact: Brandy Saxena Address: [address] [place] [address] Mobile Relation: Significant other Supportive: Yes Other Important Patient Contacts: None Caregiver Assessment: Caregiver is ready, willing and able to meet the patient's needs as recommended by the inter-professional team? pt declined home care needs Patient's transition needs and plan for meeting these needs: Pt to follow up with PCP and Surgeon as directed. Pt to follow discharge instructions. Contact provider with any new questions or concerns. Does the patient have an acute stroke diagnosis, or has the patient had a stroke during this admission? No Medication Adherence: I am convinced of the importance of my prescription medication: Agree completely - 0 I worry that my prescription medication will do more harm than good to me Disagree completely - 0 I feel financially burdened by my [id number] expenses for my prescription medication: Agree somewhat - 0 Patient is categorized as low risk < 2 Are you interested in bedside delivery of your medications? No Food Concerns: In the Last Month, Have You had Trouble Getting Food? No trouble getting food During the Last Month, Have You Worried Whether Your Food Would Run Out Before You Had Enough Money to Buy More? No Is the Patient Psychosocially Complex? No ASSESSMENT AND PLAN: Medical Needs: 2 or more chronic diseases Psychosocial Needs: None FREEDOM OF CHOICE EXPLAINED: N/A POTENTIAL TRANSITION PLANS Home pt declined home care. Ailyn Méndez is a 57 year old female scheduled for Exploratory lap per Surgery Request Case in [facility] on 08/19/17. Per morning rounds with Chantel QUIROS. Pt medically cleared for discharge home today. Plan is home with no home care needs anticipated at time of discharge. CM to bedside to introduce self, CM role and to discuss discharge planning and home care needs. Plan to discharge home once medically stable. Questions and concerns addressed. Pt reports being independent at home, and denies the need for assistance. CM will continue to follow and update. Family will provide transportation home. SIGNATURE: Patsy Gonzales RN PATIENT NAME: Ailyn Méndez DATE: August 20, 2017 TIME: 2:29 PM PAGER/CONTACT #: [phone] NUTRITION Observed: 08/20/2017 Status: COMPLETED Source: [place] 2:18 PM [facility] REPOSITORY O ID: [id number] Author: Tonya Vickers (SafetyCertified) Drop Service: Nutrition Therapy Author Type: Computational Sciences Professor Type: Nutrition Filed: 08/20/2017 2:26 PM Note Text: NUTRITION THERAPY FOLLOW-UP NOTE SERVICE DATE: 08/20/2017 SERVICE TIME: 1:00 PM Anthropometrics: Height: 170.2 cm (5' 7) Current Weight: Weight: 93.4 kg (206 lb) Body mass index is 32.26 kg/m?. 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 Unable to assess Allergies: ALLERGIES Allergen Reactions - Cinnamon Anaphylaxis Airborne and ingested reactions: throat AND lips swell, SOB - Dicyclomine Vomiting - Azulfidine [Sulfasa* Hives - Codeine Intolerance Stops ileostomy functioning-severe constipation - Flagyl [Metronidazo* Hives - Fluzone High-Dose 2* Shortness of Breath Difficulty breathing, chest pain - Glucophage [Metform* GI Upset - Influenza Virus Vac* Shortness of Breath, Other: See Comments Chest pain - Penicillins Hives - Sulfa (Sulfonamide * Hives - Victoza [Liraglutid* Other: See Comments Acute pancreatitis Reason for Visit: Food allergies: The patient was on her phone, was unable to confirmed allergy to cinnamon, causes her throat to close, when this food is consumed. Foods containing this product were removed from menu selections in [facility]. Education needs: Patient provided with diet education materials to review before education is completed I attempted to review the diet education with the patient, she was on her phone, with a personal call, I waited for 5 minutes, she not once asked me to come back, wait or ask the person on the phone to hold, she never acknowledged my presence in the room not even when I handed her the materials and interrupted her explaining I need to review the diet with her. Not even when I told her I have to leave. Nursing Admission Assessment Malnutrition Score Tool: 0 Plan of Care: Recommendation Diet education to be completed prior to discharge Allergy removed in [facility] Discharge Plan: Home on GI soft diet MNT Billing Type: Routine Care/15 min 1 unit SIGNATURE: Tonya Rosales DTR PATIENT NAME: Ailyn Méndez DATE: August 20, 2017 TIME: 2:18 PM PAGER: [phone] ALLIED HEALTH Observed: 08/20/2017 Status: COMPLETED Source: [place] 1:55 PM [facility] REPOSITORY [facility] ID: [id number] Author: Oanh Clements (Therapist) LIBIA Bar Service: Music Therapy Author Type: Music Therapist Type: Allied Health Filed: 08/20/2017 4:10 PM Note Text: MUSIC THERAPY NOTE SERVICE DATE: 08/20/2017 Consult received and appreciated. Pt presented with neutral affect upon MT's arrival and was sitting up in the chair, visitors as bedside. Pt expressed feeling rough and rated pain 8/10 currently. MT introduced music therapy services and interventions to pt, offering session to assist with needs, to which pt reported anticipated discharge today or tomorrow and therefore declined. Will follow up should discharge not occur as anticipated. SIGNATURE: MAGGY Meyers PATIENT NAME: Ailyn Méndez DATE: August 20, 2017 TIME: 4:08 PM PAGER/CONTACT #: [phone] ALLIED HEALTH Observed: 08/20/2017 Status: COMPLETED Source: [place] 12:42 PM [facility] REPOSITORY O ID: [id number] Author: Rozina Johnson Service: Art Therapy Author Type: Art Therapist Type: Allied Health Filed: 08/20/2017 12:56 PM Note Text: ART THERAPY NOTE SERVICE DATE: 08/20/2017 SERVICE TIME: 1202 H50-19 Referred By: Resident / fellow Reason for Referral: Depressed mood COMMENTS: Consult received and appreciated. Pt appeared drowsy upon arrival and introduction of self and service. Pt reported that she may be discharged today or tomorrow. Pt voiced interest in art therapy and noted that she brought watercolor pencils with her. Pt confirmed feeling sleepy and desired to rest at this time. Contact information provided. Pt thanked functional tester typewriters. AT will follow up as able. SIGNATURE: Rozina Johnson, Art Therapist PATIENT NAME: Ailyn Méndez DATE: August 20, 2017 TIME: 12:42 PM PAGER/CONTACT #: [phone] CBC AND DIFFERENTIAL Collected: 08/19/2017 Status: F Source: [place] 10:30 PM [facility] REPOSITORY TYPE CODE TESTS RESULT OUT OF REFERENCE UNITS RANGE LAB WBC 3.70-11.00 k/uL WBC 9.73 LAB RBC 3.90-5.20 m/uL RBC 4.47 LAB HGB 11.5-15.5 g/dL Hemoglobin 12.9 LAB HCT 36.0-46.0 % Hematocrit 39.6 LAB MCV 80.0-100.0 fL MCV 88.6 LAB MCH 26.0-34.0 pG MCH 28.9 LAB MCHC 30.5-36.0 g/dL MCHC 32.6 LAB RDWCV 11.5-15.0 % RDW-CV 14.8 LAB PLTCT 150-400 k/uL Platelet Count 168 LAB MPV 9.0-12.7 fL MPV High 12.9 LAB ANEUT % Neut% 73.4 LAB AANEUT 1.45-7.50 k/uL Abs Neut 7.15 LAB ALYMP % Lymph% 17.4 LAB AALYMP 1.00-4.00 k/uL Abs Lymph 1.69 LAB AMONO % Butler% 6.0 LAB AAMONO <0.87 k/uL Abs Butler 0.58 LAB AEOS % Eosin% 2.6 LAB AAEOS <0.46 k/uL Abs Eosin 0.25 LAB ABASO % Baso% 0.6 LAB AABASO <0.11 k/uL Abs Baso 0.06 LAB AUNRBC 0 /100 WBC NRBCs 0.0 LAB ABNRBC <0.01 k/uL Absolute nRBC <0.01 LAB DTYP DTYPE Auto Diff Performed By: #### CBCDIF, BMP, MG1, PHOS, CAROLEE #### [facility] [address] [place] [id number] BASIC METABOLIC PANL Collected: 08/19/2017 Status: F Source: [place] 10:30 PM [facility] REPOSITORY TYPE CODE TESTS RESULT OUT OF REFERENCE UNITS RANGE LAB GLU 74-99 mg/dL High Glucose 130 Result Comment: The [place] Diabetes Association (ADA) provides guidance for cutoff values for fasting glucose and random glucose. The ADA defines fasting as no caloric intake for at least 8 hours. Fas ting plasma glucose results between 100 to 125 mg/dL indicate increased risk for diabetes (prediabetes). Fasting plasma glucose results greater than or equal to 126 mg/dL meet the criteria for diagnosis of diabetes. In the absence of unequivocal hyperglycemia, results should be confirmed by repeat testing. In a patient with classic symptoms of hyperglycemia or hyperglycemic crisis, random plasma glucose results greater than or equal to 200 mg/dL meet the criteria for diagnosis of diabetes. Reference: Standards of Medical Care in Diabetes 2016, [place] [employer] Association. Diabetes Care. 2016.39(Suppl 1). LAB BUN 7-21 mg/dL BUN 16 LAB CRET 0.58-0.96 mg/dL Creatinine High 0.99 LAB NA 136-144 mmol/L Sodium 141 LAB K 3.7-5.1 mmol/L Potassium 3.9 LAB CL 97-105 mmol/L Chloride 99 LAB CO2 22-30 mmol/L CO2 28 LAB AGAP 9-18 mmol/L Anion Gap 14 LAB CA 8.5-10.2 mg/dL Calcium, Total 8.8 LAB GFRAA eGFR- Amer. >60 LAB GFRNAA . eGFR-All Other Races 57 Result Comment: eGFR (Estimated GFR) Units of measure: mL/min/1.73 meters squared eGFR is derived from the reexpressed MDRD Study equation using the following parameters: serum creatinine, age, gender and race. The creatinine assay has been calibrated to be traceable to IDMS. An eGFR <60 mL/min/1.73m2 for >3 months is consistent with chronic kidney disease. Refer to KDOQI guidelines for clinical interpretation. In patients with unstable renal function, e.g. those with acute kidney injury, the eGFR may not accurately reflect actual GFR. Performed By: #### CBCDIF, BMP, MG1, PHOS, CAROLEE #### [place] [address] MAGNESIUM Collected: 08/19/2017 Status: F Source: [place] 10:30 PM [facility] REPOSITORY TYPE CODE TESTS RESULT OUT OF REFERENCE UNITS RANGE LAB MG 1.7-2.3 mg/dL Low Magnesium 1.4 Performed By: #### CBCDIF, BMP, MG1, PHOS, CAROLEE #### [place] [address] PHOSPHORUS Collected: 08/19/2017 Status: F Source: [place] 10:30 PM [facility] REPOSITORY TYPE CODE TESTS RESULT OUT OF REFERENCE UNITS RANGE LAB PHOS 2.7-4.8 mg/dL Phosphorus 3.9 Performed By: #### CBCDIF, BMP, MG1, PHOS, CAROLEE #### [facility] [employer] [facility] [place] [address] TROPONIN T Collected: 08/19/2017 Status: F Source: [place] 10:30 PM [facility] REPOSITORY TYPE CODE TESTS RESULT OUT OF REFERENCE UNITS RANGE LAB TROPT 0.000-0.029 ng/mL Troponin T <0.010 Performed By: #### CBCDIF, BMP, MG1, PHOS, CAROLEE #### [facility] [employer] [address] [place] [address] NURSING PROG Observed: 08/19/2017 Status: COMPLETED Source: [place] 9:34 PM [facility] REPOSITORY HNO ID: [id number] Author: Azalea (Rn) JUVENCIO Hutchins Service: (none) Author Type: Registered Nurse Type: Nursing Progress Note Filed: 08/19/2017 10:52 PM Note Text: Nursing Progress Note Topic of Note: high BP Ailyn Méndez [id number] 2130 BP 184/85, 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 Pt was not available. Nurse and staff were informed of effort to make contact. Staff will make request for further contact, as needed. Regenerator Operator Signature: Audrey Murguia Student To contact the Spiritual Care Department: Please call [phone] or Page the On-Call Regenerator Operator at pager [phone] Thank you for the opportunity to be of service. This is an electronically created document. IF PRINTED, PLEASE DO NOT REMOVE FROM THE CHART OR MODIFY PRINTED COPY. HEMOGLOBIN A1C Collected: 08/19/2017 Status: F Source: [place] 7:17 PM [facility] REPOSITORY TYPE CODE TESTS RESULT OUT OF REFERENCE UNITS RANGE LAB HGBA1C 4.3-5.6 % High Hemoglobin A1c 10.0 LAB HBA0 mg/dL Est. Average Glucose 240 Result Comment: eAG: (Estimated average glucose) is a calculated value from HgbA1c and is order entry representative of the average blood glucose level in the last 2-3 month period. Performed By: #### HBA1C #### [facility] [address] [place] [address] NURSING PROG Observed: 08/19/2017 Status: COMPLETED Source: [place] 4:37 PM [facility] REPOSITORY HNO ID: [id number] Author: Lita Mondragon RN Service: Nursing Author Type: Registered Nurse Type: Nursing Progress Note Filed: 08/19/2017 4:39 PM Note Text: Nursing Progress Note Patient Name: Ailyn Méndez Patient Location: [facility] ([facility]) This note was completed by: Lita Mondragon RN Pt states her baseline bps are 160s and 170s, pacu aware bp 162/76, ok to go to floor. NURSING PROG Observed: 08/19/2017 Status: COMPLETED Source: [place] 4:25 PM [facility] REPOSITORY HNO ID: [id number] Author: Lita Mondragon RN Service: Nursing Author Type: Registered Nurse Type: Nursing Progress Note Filed: 08/19/2017 4:27 PM Note Text: Nursing Progress Note Patient Name: Ailyn Méndez Patient Location: [place] [address] This note was completed by: Lita Mondragon RN Pt states she is at baseline pain level, resting comfortably, sleeping in between assessments. NURSING PROG Observed: 08/19/2017 Status: COMPLETED Source: [place] 3:54 PM [facility] REPOSITORY HNO ID: [id number] Author: Lita Mondragon RN Service: Nursing Author Type: Registered Nurse Type: Nursing Progress Note Filed: 08/19/2017 3:59 PM Note Text: Nursing Progress Note Patient Name: Ailyn Méndez [id number] This note was completed by: Lita Mondragon, MILL TURNER made aware of pts bp 172 /79 ordered to give labetelol and po metoprolol. ANES POST Observed: 08/19/2017 Status: COMPLETED Source: [place] 1:45 PM [facility] REPOSITORY HNO ID: [id number] Author: Johanny Brian Service: Anesthesiology Author Type: Anesthesiologist Type: Anesthesia PostOp Filed: 08/19/2017 1:45 PM Note Text: POST ANESTHESIA EVALUATION NOTE SERVICE DATE: 08/19/2017 SERVICE TIME: 1:45 PM : 1960 Vitals: 08/19/17 0723 08/19/17 1324 Temp: 36.4 ?C (97.5 ?F) 36.1 ?C (97 ?F) 08/19/17 0723 08/19/17 1324 08/19/17 1330 BP: 176/84 178/86 (!) 219/102 08/19/17 0723 08/19/17 1324 08/19/17 1330 Pulse: 66 74 72 08/19/17 0723 08/19/17 1324 08/19/17 1330 Resp: 16 14 15 08/19/17 0723 08/19/17 1324 08/19/17 1330 SpO2: 94% 98% 98% Validated Vital Signs: Yes POST ANES STATUS: PACU/ICU Patient Condition: Stable Neurological Status: Sleepy but arousable. Pulmonary Status: Breathing comfortably on supplemental oxygen. Airway Control: Returned to baseline unsupported. Cardiovascular Status: Stable Pain: Adequately controlled Postoperative Nausea/Vomiting: No significant post operative nausea or vomiting Postoperative Hydration Status: Adequate. Anesthetic Complications: None Recommendation: Continue current plan of care Other Remarks: SIGNATURE: Johanny Brian MD PATIENT NAME: Ailyn Méndez DATE: August 19, 2017 TIME: 1:45 PM PAGER/CONTACT #: CLEVE MCCLAING Observed: 08/19/2017 Status: COMPLETED Source: [place] 1:35 PM [facility] REPOSITORY HNO ID: [id number] Author: Lita GomezRn) JUVENCIO Mondragon Service: Nursing Author Type: Registered Nurse Type: Nursing Progress Note Filed: 08/19/2017 1:44 PM Note Text: Nursing Progress Note Patient Name: Ailyn Méndez Patient Location: [place] [address]/[facility] ([facility] This note was completed by: Lita Mondragon RN PACU resident made aware of pts bp 200s. Ordered labetelol. BRIEF OP NOT Observed: 08/19/2017 Status: COMPLETED Source: [place] 12:46 PM [facility] REPOSITORY HNO ID: [id number] Author: Shivam Lozoya (Fel) Service: Colorectal Author Type: Fellow Type: Brief Op Note Filed: 08/19/2017 12:52 PM Note Text: BRIEF OPERATIVE NOTE - COLORECTAL SURGERY Log ID: [id number] Surgery/Procedure Date: 08/19/2017 Incision/Procedure Start Time: 12:03 PM Incision Close/Procedure End Time: 12:46 PM Surgeon(s) and Wire Weaver(s): Surgeon(s) and Role: * Dean Rose - Primary * Shivam Lozoya (Fel) - Fellow No Additional Staff Procedures and Anesthesia: Exploratory laparotomy, lysis of adhesions, curettage and drainage of abscess Stoma Type: End ileostomy (previously) Findings: intra-abdominal adhesions, no communication between the skin fistula track with intra-abdominal cavity. 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 Request/Comment: - Swab Specimen collected in surgery. Smear Result - No organisms seen Few Polymorphonuclear leukocytes Culture Result - No growth 3 days Performed By: #### WCUL #### [place] [address] Observed: 08/19/2017 Status: F Source: [place] TISSUE CULT / STAIN 12:31 PM [facility] REPOSITORY Sp. Request/Comment: - Specimen collected in surgery. Specimen received in sterile container. Smear Result - No organisms seen No Polymorphonuclear leukocytes Culture Result - Rare Corynebacterium striatum --> ABNORMAL ALERT (NOTE) --> ABNORMAL ALERT Corynebacterium striatum(*) Identification by MALDI TOF mass --> ABNORMAL ALERT spectrometry (MS) was developed and its performance characteristics --> ABNORMAL ALERT determined by [facility] Pathology and --> ABNORMAL ALERT Laboratory Medicine [place] ([facility]). MALDI TOF MS identification --> ABNORMAL ALERT of this organism has not been approved by the FDA. --> ABNORMAL ALERT [facility] is regulated under CLIA as qualified to perform high --> ABNORMAL ALERT c omplexity testing. This identification is used for clinical --> ABNORMAL ALERT purposes, it should not be regarded as investigational or for --> ABNORMAL ALERT research.Positive result called to a nd read back by:Rosana Alex H50 --> ABNORMAL ALERT 08/22/17 1209 A.Bias --> ABNORMAL ALERT Antimicrobial susceptibility testing (AST) of Corynebacterium species --> ABNORMAL ALERT was developed and its performance characteristics determined by --> ABNORMAL ALERT [facility] Pathology and Laboratory --> ABNORMAL ALERT Medicine [place] ([facility]). AST of this organis m has not been --> ABNORMAL ALERT approved by the FDA. --> ABNORMAL ALERT [facility] is regulated under CLIA as qualified to perform high --> ABNORMAL ALERT complexity testing. This AST result is used for clinical purposes, it --> ABNORMAL ALERT should not be regarded as investigational or for research. --> ABNORMAL ALERT ORGANISM: Corynebacterium striatum METHOD: Minimum inhibitory concentration (VIZION) Antibiotic Interp MAYTE Status Penicillin G RESISTANT >4 F Vancomycin SUSCEPTIBLE <=0.5 F Erythromycin RESISTANT >2 F Clindamycin NS >1 F Performed By: #### TISCUL #### [facility] [employer] [address] [place] [address] Observed: 08/19/2017 Status: F Source: [place] ANAEROBE CULTURE 12:31 PM [facility] REPOSITORY Culture Result - Negative for anaerobes. Performed By: #### ANACUL #### [facility] [address] [place] [address] NURSING PROG Observed: 08/19/2017 Status: COMPLETED Source: [place] 7:32 AM [facility] REPOSITORY HNO ID: [id number] Author: Elizabeth Vickers (Rn) JUVENCIO Murrell Service: Nursing Author Type: Registered Nurse Type: Nursing Progress Note Filed: 08/19/2017 7:32 AM Note Text: ailyn romo has bs 257 (she report this as her norm) had 55 units long acting insulin at 2000 yesterday. also LLL rub present LLL. ASHLEE Johnson [address] g31-9 pt vss no distress page to dr Cookie Orlando NURSING PROG Observed: 08/19/2017 Status: COMPLETED Source: [place] 7:01 AM [facility] REPOSITORY HNO ID: [id number] Author: Elizabeth GomezRn) JUVENCIO Murrell Service: Nursing Author Type: Registered Nurse Type: Nursing Progress Note Filed: 08/19/2017 7:02 AM Note Text: PRE OP LEARNING ASSESSMENT PROCEDURE/SURGERY: SURGERY: logistics READINESS TO LEARN COGNITIVE ABILITY: Alert and oriented MOTIVATION TO LEARN: Interested FAMILY SUPPORT: High - Very involved in pt care PATIENT LEARNS BEST BY: Verbal Instruction FACTORS AFFECTING LEARNING: None PHYSICAL LIMITATIONS AFFECTING LEARNING: None Electronically Signed By: Paco Murrell RN In Department: [facility] g31 OPERATIVE NO Observed: 08/19/2017 Status: COMPLETED Source: [place] 12:00 AM [facility] REPOSITORY HNO ID: [id number] Author: Dean Rose Service: (none) Author Type: Physician Type: Operative Report Filed: 08/24/2017 1:18 PM Note Text: [place] [address] [place] OPERATIVE REPORT NAME: AILYN MÉNDEZ [facility] #: [id number] DATE: 08/19/2017 AGE: 57 SURGEON 1: Dean Rose M.D. SURGEON 2: Shivam Lozoya M.D. COIN PURSE ASSEMBLER 1: COIN PURSE ASSEMBLER 2: OPERATION: Laparotomy and drainage of chronic abscess cavity. ANESTHESIA: General anesthetic. PREOPERATIVE DIAGNOSIS: Enterocutaneous fistula. POSTOPERATIVE DIAGNOSIS: Enterocutaneous fistula. OPERATIVE INDICATIONS: This is a patient who is moderately obese, had had an ileostomy in the right lower quadrant at some time in the past. The ostomy had subsequently been transferred to the left lower quadrant and subsequent to that in a remote time, had had a laparoscopic cholecystectomy. Following the cholecystectomy, the patient developed an abscess that was drained at the site of the previous ileostomy and site from which it was relocated that persisted for many months opening and closing and draining. This had been investigated thoroughly. The assumption from the clinical aspect was that this was a small enterocutaneous fistula related to the laparoscopic cholecystectomy and the patient wished for this to be removed. Subsequent injections of the cutaneous opening, CAT scans, and enterography did not demonstrate any unequivocal communication with the intestine. At laparotomy, there was no demonstrable communication with the intestine and on opening the wound, there was a chronically infected tract with a heavy nonabsorbable suture that was at the base in the center of an area of granulation tissue within the rectus muscle on the right side. OPERATIVE FINDINGS: OPERATIVE PROCEDURE: The patient was placed supine on the operating table, given a general anesthetic, and prepared in the usual manner. The cutaneous opening of the presumed fistula was probed and at laparotomy, the probe was readily palpable, but did not enter the peritoneal cavity. The intestine was normal. It was adherent to the posterior rectus sheath on the right, but there was no evidence of any communication of fistulous opening in the intestine or on the posterior aspect of the rectus muscle. At this point, the skin was opened over the probe, which was in the tract and the dissection carried down to the fistula tract. At this point, the granulation tissue was identified and curetted for the entire length of the cavity and the infected old suture was identified and removed. In the absence of any evidence of cutaneous fistula, the granulation in the tract which was several centimeters long was thoroughly curetted and a quarter-inch Nicolasa drain sutured into the cavity to the tract with a 3-0 chromic catgut. The abdomen was closed with a #1 looped Maxon and the skin of both incisions approximated with the skin stapler. Procedure was difficult. The pathology was unusual. The procedure was uneventful. I was assisted by Dr. Lozoya. Incision was made at 12:03 and the dressings applied at 12:40. ESTIMATED BLOOD LOSS: DRAINS: SPECIMENS: Dean Rose M.D. IL:[id number] /[id number] cc: DAREN Observed: 08/13/2017 Status: COMPLETED Source: [place] 12:00 AM [facility] REPOSIT[facility] Letter Text August 13, 2017 Ailyn Méndez [address] [address] Dear Ms. Méndez, It was a pleasure to see you in the Department of Pulmonary Medicine on 08/11/2017. Attached please find a copy of your Visit Summary. I appreciate having the opportunity to see you. If I can be of further assistance to you, or if you have any questions regarding this report, please feel free to contact my office. Sincerely, Sherine Nuñez D.O., F.C.C.P. Parminder/pauline Attachment: Visit Summary PROGRESS Observed: 08/12/2017 Status: COMPLETED Source: [place] 11:32 AM [facility] REPOSITORY HNO ID: [id number] Author: Willian Vaz Service: (none) Author Type: Physician Type: Progress Notes Filed: 08/12/2017 12:16 PM Note Text: Willian Vaz DPM Department of Podiatry [address] [facility] [address] Dept: [phone] Dept Diabetic Nail Care SUBJECTIVE: Follow up office visit: This 57 year old female presents to clinic c/o painful toenails. Patient states that the nails are especially painful with shoe gear and pressure. Patient admits to being diabetic and states that their blood sugar was 228 mg/dL this AM. She needs new shoes Patient denies claudication type symptoms when walking. No other pedal complaints at this time. No change in medications or medical history since last visit. OBJECTIVE: Patient presents to clinic ambulating in Tennis Shoes. Vasc: DP and PT pulses are palpable bilateral. CFT is less than 5 seconds bilateral. Skin temperature is warm to warm proximal to distal bilateral. There is no edema or varicosities noted. Hair growth present. Neuro: Protective sensation is intact to the foot and toes when tested with the 5.07 SWM bilateral. Vibratory sensation is decreased at the hallux bilateral. significant neurological defecits. Derm: Inspection and palpation performed. Nails 1-5 b/l are painful, discolored-yellow, thick, crumbly, dystrophic and with subungal debris. Skin is of normal turgor and texture. Hyperkeratosis b/l hallux. NO ulcerations, scars, verruca or other lesions noted. Dorsal aspect of right foot has lesion suggestive of wart Ortho: Ankle joint DF is full with the knee extended and full with knee flexed. No pain or crepitus noted. STJ, MTJ ROM are full and free of pain or crepitus. Muscle strength is 5/5 for dorsiflexors, plantarflexors, inverters, everters. Digital deformities include hallux valgus. ASSESSMENT: (E11.42) Diabetic polyneuropathy associated with type 2 diabetes mellitus (HCC) (primary encounter diagnosis) (B35.1) Onychomycosis (M79.675) Pain in toe of left foot (M79.674) Pain in toe of right foot (L85.9) Hyperkeratosis (M20.11) Acquired hallux valgus of right foot (B07.8) Other viral warts Plan: Patient was seen and evaluated. Nails 1-5 bilateral were debrided in length and thickness. Callus to b/l hallux filed with sanding disk Discussed lesion of right foot. Suspect wart. Discussed compound w. She will try. If this does not improve, could be candidate for surgical excision Discussed burning in feet. Likely neuropathy. continue Patient was instructed on the continued importance of diabetic foot care along with proper diet and keeping their blood sugar under control to prevent complications. Patient is to RTC in 3-4 months. Willian Vaz DPM CNOV Observed: 08/12/2017 Status: COMPLETED Source: [place] 11:25 AM [facility] RE[facility]IT[facility] Office Visit (PODIWS) AILYN MÉNDEZ ([id number]) 1960 F Date Time Provider Department 08/12/17 11:25 AM WILLIAN VAZ PODVIRI During your visit today, we recorded the following information about you: Willian Vaz DPM 08/12/2017 12:16 PM Signed Willian Vaz DPM Department of Podiatry [address] [facility] [address] Dept: [phone] Dept Diabetic Nail Care SUBJECTIVE: Follow up office visit: This 57 year old female presents to clinic c/o painful toenails. Patient states that the nails are especially painful with shoe gear and pressure. Patient admits to being diabetic and states that their blood sugar was 228 mg/dL this AM. She needs new shoes Patient denies claudication type symptoms when walking. No other pedal complaints at this time. No change in medications or medical history since last visit. OBJECTIVE: Patient presents to clinic ambulating in Tennis Shoes. Vasc: DP and PT pulses are palpable bilateral. CFT is less than 5 seconds bilateral. Skin temperature is warm to warm proximal to distal bilateral. There is no edema or varicosities noted. Hair growth present. Neuro: Protective sensation is intact to the foot and toes when tested with the 5.07 SWM bilateral. Vibratory sensation is decreased at the hallux bilateral. significant neurological defecits. Derm: Inspection and palpation performed. Nails 1-5 b/l are painful, discolored-yellow, thick, crumbly, dystrophic and with subungal debris. Skin is of normal turgor and texture. Hyperkeratosis b/l hallux. NO ulcerations, scars, verruca or other lesions noted. Dorsal aspect of right foot has lesion suggestive of wart Ortho: Ankle joint DF is full with the knee extended and full with knee flexed. No pain or crepitus noted. STJ, MTJ ROM are full and free of pain or crepitus. Muscle strength is 5/5 for dorsiflexors, plantarflexors, inverters, everters. Digital deformities include hallux valgus. ASSESSMENT: (E11.42) Diabetic polyneuropathy associated with type 2 diabetes mellitus (HCC) (primary encounter diagnosis) (B35.1) Onychomycosis (M79.675) Pain in toe of left foot (M79.674) Pain in toe of right foot (L85.9) Hyperkeratosis (M20.11) Acquired hallux valgus of right foot (B07.8) Other viral warts Plan: Patient was seen and evaluated. Nails 1-5 bilateral were debrided in length and thickness. Callus to b/l hallux filed with sanding disk Discussed lesion of right foot. Suspect wart. Discussed compound w. She will try. If this does not improve, could be candidate for surgical excision Discussed burning in feet. Likely neuropathy. continue Patient was instructed on the continued importance of diabetic foot care along with proper diet and keeping their blood sugar under control to prevent complications. Patient is to RTC in 3-4 months. Willian Vaz DPM Referring Provider: WILLIAN VAZ [[id number]] Allergies As of Date: 08/12/2017 Noted Allergy Reaction CINNAMON 06/06/2008 10 - Anaphylaxis Comments: Airborne and ingested reactions: throat AND lips swell, SOB DICYCLOMINE 08/18/2013 11 - Vomiting AZULFIDINE (SULFASALAZINE) 10/12/2008 4 - Hives CODEINE 06/06/2008 5 - Intolerance Comments: Stops ileostomy functioning-severe constipation FLAGYL (METRONIDAZOLE HCL) 08/18/2013 4 - Hives FLUZONE HIGH-DOSE 2015- (PF) (F*01/08/2016 12 - Shortness of Breath Comments: Difficulty breathing, chest pain GLUCOPHAGE (METFORMIN HCL) 09/11/2013 8 - GI Upset INFLUENZA VIRUS VACCINES 12/17/2015 12 - Shortness of Breath 14 - Other: See Comments Comments: Chest pain PENICILLINS 02/12/1999 4 - Hives SULFA (SULFONAMIDE ANTIBIOTICS) 10/12/2008 4 - Hives VICTOZA (LIRAGLUTIDE) 07/22/2016 14 - Other: See Comments Comments: Acute pancreatitis Date Reviewed: 08/12/2017 Reviewed by: Nany Parker Ma - Fully Assessed Reason for Visit: Diabetic Foot Care [916] Primary Visit Diagnosis:Diabetic polyneuropathy associated with type 2 diabetes mellitus (HCC) [E11.42] Other Visit Diagnoses:Onychomycosis [B35.1] Pain in toe of left foot [M79.675] Pain in toe of right foot [M79.674] Hyperkeratosis [L85.9] Acquired hallux valgus of right foot [M20.11] Other viral warts [B07.8] Order(s):DIAB SHOE FOR DENSITY INSERT [[id number]] Order #: [id number] Prescriptions as of 08/12/2017 Sig: BUPRENORPHINE 5 MCG/HOUR WEEK* Apply 1 Patch as directed onc* PREGABALIN 50 MG CAPSULE Take 50 mg by mouth twice osiel* ATORVASTATIN 80 MG TABLET Take 1 tablet by mouth daily * URSODIOL 300 MG CAPSULE Take 1 capsule by mouth twice* FENOFIBRATE MICRONIZED 200 MG* Take 1 capsule by mouth daily* Patient not taking: Reported on 08/11/2017 INSULIN ASPART U-100 100 UNI* Inject 20-40 Units subcutaneo* ONDANSETRON HCL 4 MG TABLET Take 4 mg by mouth as needed.* INSULIN GLARGINE (U-100) 100 * Inject 30 units in the mornin* Patient taking differently: Inject 60 units in the mornin* PANTOPRAZOLE 40 MG TABLET,DEL* Take 1 tablet by mouth daily * OXYCODONE-ACETAMINOPHEN 5 MG-* Take 1 tablet by mouth every * COMPOUNDED PRESCRIPTION Convatec - Juanita Cohesive Ost* COMPOUNDED PRESCRIPTION Convatec - Esteem 10 draina* DULOXETINE 60 MG CAPSULE,JOIE* Take 1 capsule by mouth twice* COMPOUNDED PRESCRIPTION PEREZ AND NEPHEW Skin- Prep. V4* ALPRAZOLAM 0.5 MG TABLET Take 0.5 tablets by mouth twi* BUPROPION HCL 75 MG TABLET Take 1 tablet by mouth twice * PEN NEEDLE, DIABETIC 31 GAUGE* Inject 4-6 times daily TRANSCUTANEOUS ELECTRICAL NER* 1 Device as directed. ISOSORBIDE DINITRATE 30 MG TA* Take 1 tablet by mouth three * BLOOD SUGAR DIAGNOSTIC STRIPS TEST BLOOD SUGAR(S)5-6 DAILY.* FUROSEMIDE 20 MG TABLET Take 1 tablet by mouth once d* COMPOUNDED PRESCRIPTION SHARPS IRONER OR PRESSER. Dx: E11.65* COMPOUNDED PRESCRIPTION CONVATEC Allkare Adhesive rem* MAGNESIUM OXIDE 400 MG TABLET Take 1 tablet by mouth three * Patient taking differently: Take 400 mg by mouth twice da* METOPROLOL TARTRATE 50 MG TAB* Take 1.5 tablets by mouth thr* ASPIRIN 81 MG CHEWABLE TABLET Take 81 mg by mouth once alexander* NITROGLYCERIN 0.4 MG SUBLINGU* Dissolve 0.4 mg under the ton* CLOPIDOGREL 75 MG TABLET Take 75 mg by mouth once alexander* Problem List As Of Date 08/12/2017 Noted Resolved Uncontrolled diabetes mellitus (HCC) [E11.65] INVALID FOR*04/04/2015 CAD (coronary artery disease) [I25.10] INVALID FOR* More... S/p total colectomy [Z90.49] INVALID FOR* More... COPD (chronic obstructive pulmonary disease) (H*INVALID FOR* More... Hyperlipidemia [E78.5] INVALID FOR* HTN (hypertension) [I10] INVALID FOR* CHF (congestive heart failure) ([facility]) [I50.9] INVALID FOR* Chest pain at rest [R07.9] INVALID FOR* More... ANKITA on CPAP [G47.33, Z99.89] INVALID FOR* Depression with anxiety [F41.8] INVALID FOR* CKD (chronic kidney disease) stage 3, GFR 30-59*INVALID FOR* Pulmonary hypertension, moderate to severe (HCC*INVALID FOR* Migraine [G43.909] INVALID FOR* Ileostomy in place ([facility]) [Z93.2] INVALID FOR* Hypoxemia [R09.02] INVALID FOR* Open wound of abdominal wall, anterior, complic*INVALID FOR*07/05/2015 Pain in right elbow [M25.521] INVALID FOR*03/24/2016 Diabetes mellitus type 2, uncontrolled, without*INVALID FOR* Low back pain without sciatica [M54.5] INVALID FOR* More... Neuropathic pain of chest [M79.2] INVALID FOR* More... 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 Encounter Status:Closed by WILLIAN VAZ DPM on 08/12/17 CNOV Observed: 08/11/2017 Status: COMPLETED Source: [place] 10:00 AM [facility] REPOSITORY Office Visit (PULMMN) AILYN MÉNDEZ ([id number]) 1960 F Date Time Provider Department 08/11/17 10:00 AM SHERINE NUÑEZ During your visit today, we recorded the following information about you: Temperature Pulse Respiration Blood pressure 97.5 degrees 74/minute 18/minute 133/64 Weight Height 93.4 kg 1.702 m Sherine Nuñez DO 08/11/2017 6:06 PM Signed CC: Ailyn Méndez is a pleasant 48-year-old female who presents for preoperative evaluation prior to surgery for closure of small bowel fistula. Consult requested by Dr.Efewongbe Mcgrath. Results will be communicated via letter or electronic record. Mrs Méndez presents for pre operative pulmonary evaluation prior to surgery for Exploratory laporotomy and closure of small bowel fistula with a history of ulcerative colitis. The patient states that she has had ulcerative colitis for 41 years. She had a colectomy in 1979. Through the years the patient has had an episode of bowel obstruction and now has a fistula which needs to be removed. Other comorbidities includes CAD with OHS and CABG x 5 in 2012. Since then she has had 9 stents at [facility]. The patient still has anterior chest pain which is chronic in nature. It is not believed to be cardiac in origin. Echocardiogram from 08/05/17 demonstrates an ejection fraction of 67% with normal left ventricular function. Grade 1 diastolic dysfunction From a pulmonary standpoint the patieit has a 40 star year smoking history. Stopping in 2012. She denies a history of asthma or recurrent pulmonary disease. Spirometry today showes no obstruction. Diffusion capacity is normal. Admits to sleep apnea managed with CPAP 7 centimeters water pressure without oxygen. This was diagnosed in 2013 in [facility]. I have recommended that she bring her equipment at the time of surgery. Assessment: Preoperative pulmonary evaluation prior to surgery for a laparotomy and closure of Small bowel fistula. Cardiac evaluation scheduled. From a pulmonary standpoint the patient is an ASA III physical status classification. She has obstructive sleep apnea requiring a CPAP of 7 cm of water pressure without oxygen. Her spirometry does not demonstrate obstruction, but I suspect she has a mixed obstructive and restrictive process. I would recommend an albuterol nebulizer twice a day post operatively until discharge. Incentive spirometry every 3 hours while awake. Mrs. Méndez has used steroids repeatedly through the past several years for numerous problems. I would recommend a steroid prep at the time of surgery. Solu-Medrol 15 mg IV every 6 hours ?4 doses and stop. Recommend the patient out of the bed in a chair as soon as possible with early ambulation. REVIEW OF OUTSIDE/[facility] RECORDS: ?[facility] [place] ?Pulmonary Function Lab ?Pred ? ? ? LLN ? ULN ? ? ? Pre ? ? % ? Date ? [id number] ? Time ?08:56AM ? Height ?170.5 ? Weight ? 93.8 ? FVC ?3.72 ? ? ?2.96 ?4.49 ? ? ?2.47 ? ? 66 ? FEV 1 ?2.89 ? ? ?2.24 ?3.53 ? ? ?1.73 ? ? 60 ? FEV1%F ? ? ?78.27 ? ? 68.48 88.07 ? ? 70.24 ? ? 90 ? FEV 2 ?2.84 ? ? ?2.10 ?3.58 ? ? ?1.96 ? ? 69 ? FEV 3 ?3.27 ? ? ?2.65 ?3.89 ? ? ?2.08 ? ? 64 ? FEV3%E ? ? ?92.57 ? ? 87.21 97.93 ? ? 84.35 ? ? 91 ? MEF 50 ? ? ? 3.47 ? ? ?2.30 ?4.65 ? ? ?1.60 ? ? 46 ? FIF 50 ? 2.98 ? F25/75 ? ? ? 2.58 ? ? ?1.22 ?3.94 ? ? ?0.87 ? ? 34 ? FE%FIF ?53.65 ? FEV6 ? 2.27 ? PEF ?6.14 ? ? ?4.41 ?7.87 ? ? ?5.54 ? ? 90 ? FET ? 14.91 ? FETPEF ? 0.08 ? VBe%FV ? 3.29 ? VBEex ?0.08 ? VC MAX ? 3.72 ? ? ?2.96 ?4.49 ? ? ?2.53 ? ? 68 ? DLCO ?23.00 ? ? 16.49 29.51 ? ? 18.09 ? ? 79 ? DL/VA ?4.32 ? ? ?3.00 ?5.64 ? ? ?4.82 ? ?112 ? DLCOc ? ? ? 23.00 ? ? 16.49 29.51 ? ? 17.93 ? ? 78 ? DL/VAc ? ? ? 4.32 ? ? ?3.00 ?5.64 ? ? ?4.78 ? ?111 ? NAME : AILYN MÉNDEZ PID : [id number] : 1960 Gender : Female Race : ORD : [id number] ? Procedure Date : Aug 09 2017 07:25:32 Edit Date : Aug 09 2017 07:29:05 ? Diagnosis:NORMAL SINUS RHYTHM ST AND ANTEROLATERAL T WAVE ABNORMALITY ABNORMAL ECG PULMONARY REVIEW: PULM MEDS: albuterol rescue inhaler q4h prn ALLERGIES: Reaction Severity Reaction Type Noted Valid Until Updated Allergies Cinnamon Anaphylaxis High Allergy 06/06/2008 Past Updates... Airborne and ingested reactions: throat AND lips swell, SOB Azulfidine [Sulfasalazine] Hives Not Specified 10/12/2008 Past Updates... Codeine Intolerance Not Specified 06/06/2008 Past Updates... Stops ileostomy functioning-severe constipation Flagyl [Metronidazole Hcl] Hives Not Specified Allergy 08/18/2013 Past Updates... Influenza Virus Vaccines Shortness of Breath, Other: See Comments Not Specified Allergy 12/17/2015 Past Updates... Chest pain Penicillins Hives Not Specified 02/12/1999 Past Updates... Sulfa (sulfonamide Antibiotics) Hives Not Specified 10/12/2008 Past Updates... Adverse Reactions/Drug Intolerances Dicyclomine Vomiting High Side Effect/Intolerance 08/18/2013 Past Updates... Fluzone High-dose (pf) [Flu Vacc [id number] 65yr Up(pf)] Shortness of Breath Not Specified Side Effect/Intolerance 01/08/2016 Past Updates... Difficulty breathing, chest pain Glucophage [Metformin Hcl] GI Upset Not Specified Side Effect/Intolerance 09/11/2013 Past Updates... Victoza [Liraglutide] Other: See Comments Not Specified Side Effect/Intolerance 07/22/2016 Past Updates... Acute pancreatitis OCCUP EXPOSURE: NONE TB EXPOSURE: NONE REVIEW OF OTHER SYSTEMS: Preventive Medicine: Up to date with health screenings GEN :No fever, chills or sweats. No fatigue Wt. stable. WT 206 HT 5 FT 7 IN NEURO :Denies syncope, WOLF. No seizures. No numbness or tingling EYES :No h/o uveitis, glaucoma, cataracts. Denies diplopia ENT :Denies sinusitis, rhinitis, post nasal drip or oral concerns. GI: Denies BM changes. No h/o ulcers, dysphagia or heartburn ENDO :Denies thyroid disease. HAS DM ON INSULIN X 10 YEARS CARD :No CP , palpitations, edema. No diagnosed heart disease CAD :No hematuria, kidney disease or bladder concerns Chronic kidney disease. DERM :Denies skin rash, flushing, or lesions MSK :Negative for swelling. HAS ARTHRITIS OF THE SPINE AND DISK DISEASE. JOSE :Denies bruising, blood clots or swollen nodes EXT: Denies pedal edema, DVT PSYCH: Denies sleep disturbance or mood disorder Health Risks: :Ulcerative colitis, coronary artery disease Ms. Méndez is not having pain related to the reason for this visit. SOCIAL HISTORY Tobacco Use: .5 packs/day, for 20 years. Quit 05/06/2012. Types: Cigarettes PAST MEDICAL HISTORY Diagnosis Date - Back pain - CAD (coronary artery disease) 08/18/2013 Dr. Cresencio Stone, [facility] - Chest pain at rest 08/21/2013 Dr. John, Pain Management - CHF (congestive heart failure) ([facility]) 08/21/2013 - Chronic abdominal wound infection - CKD (chronic kidney disease) stage 3, GFR 30-59 ml/min 08/21/2013 - CKD (chronic kidney disease), stage II 08/21/2013 - COPD (chronic obstructive pulmonary disease) ([facility]) 08/18/2013 Dr. Cherelle Lazo, pulmonary - Depression with anxiety 08/21/2013 - Fistula - History of Meniere's disease 1993 surgical treatment - HTN (hypertension) 08/18/2013 - Hyperlipidemia 08/18/2013 - Hypoxemia 12/18/2013 Dr. Cherelle Lazo, pulmonary - Migraine 08/21/2013 - Neck pain - ANKITA on CPAP 08/21/2013 - Pulmonary hypertension, moderate to severe 08/21/2013 - S/P total colectomy 08/18/2013 Ulcerative colitis, ileostomy. - Type II or unspecified type diabetes mellitus without mention of complication, uncontrolled 08/18/2013 - Ulcerative colitis (HCC) PAST SURGICAL HISTORY Procedure Laterality Date - CABG, ARTERY-VEIN, FOUR 2012 CABG, quadruple grafts - DELIVERY ONLY 1988 , low transverse - DEBRIDEMENT:CURRETATE, SKIN SUBCUTANEOUS 08/14/2014 chronic abdominal wound - DECOMPRESS FACIAL NERVE,TOTAL 1993 Facial nerve decomp, 1993, Right side - ILEOSTOMY 1982 - LEFT HEART CATH,PERCUTANEOUS 07/10/2013 Cardiac cath, L heart - LEFT HEART CATH,PERCUTANEOUS 09/04/2015 Cardiac cath, L heart - LOCAL REVISION OF ILESTOMY 2007 - STENT PLACEMENT,PERCUTAN,EACH 08/2012;09/2012; multiple - TOTAL ABDOM HYSTERECTOMY 1990 Hysterectomy, CIRO, bilateral SO FAMILY HISTORY Problem Relation Age of Onset - Cancer Father - Diabetes Mother - Stroke Mother - None Sister - Heart Failure Brother - pancreatitis [Other] [OTHER] Brother PHYSICAL EXAMINATION: BP 133/64 Pulse 74 Temp 36.4 ?C (97.5 ?F) Resp 18 Ht 170.2 cm (5' 7) Wt 93.4 kg (206 lb) SpO2 92% BMI 32.26 kg/m? GENERAL APPEARANCE: well appearing, alert, in no acute distress, well-hydrated, well nourished INTEGUMENT: skin color, texture, turgor normal, no suspicious rashes or lesions EYES: Anicteric sclera. Pupils are equally round and reactive to light, and extraocular movements are intact. ENT Head: normal Ears: external ears normal, canals clear, TM's normal Nose/Sinuses: negative Mouth: lips, mucosa, and teeth normal. Tongue,oropharynx normal RESPRATORY: lungs clear to auscultation, no wheezing, rales, or rhonchi, Thorax is symmetric with no evidence of paradoxical respiration. BREAST EXAM DEFERRED. No axillary lymphadenopathy. Neck is supple, with normal size, and no thyroid enlargement or mass. CARDIAC: RRR without murmur, or bruit Peripheral vascular: normal pulses and symmetric in upper and lower extremities. No venous iinsufficiency GASTROENTEROLOGYI: I Moderate tenderness right lower quadrant. EXTREMITIES: No deformities, pedal edema, or skin discoloration. MUSCULOSKELETAL; Spine range of motion normal. Muscular strength intact GENITOURINARY: No CVA tenderness NEURO: Gait normal. Motor appears normal. Sensation grossly intact, HEMATOLOGIC/LYMPHATIC/ IMMUNOLOGIC: No evidence of a supra-clavicular, infra-clavicular, or femoral lymphadenopathy. No ecchymosis. PSYCHIATRIC: Mentation and affect normal. Oriented x [address] SHERINE NUÑEZ Referring Provider: DEAN ROSE [[id number]] Allergies As of Date: 08/11/2017 Noted Allergy Reaction CINNAMON 06/06/2008 10 - Anaphylaxis Comments: Airborne and ingested reactions: throat AND lips swell, SOB DICYCLOMINE 08/18/2013 11 - Vomiting AZULFIDINE (SULFASALAZINE) 10/12/2008 4 - Hives CODEINE 06/06/2008 5 - Intolerance Comments: Stops ileostomy functioning-severe constipation FLAGYL (METRONIDAZOLE HCL) 08/18/2013 4 - Hives FLUZONE HIGH-DOSE (PF) (F*01/08/2016 12 - Shortness of Breath Comments: Difficulty breathing, chest pain GLUCOPHAGE (METFORMIN HCL) 09/11/2013 8 - GI Upset INFLUENZA VIRUS VACCINES 12/17/2015 12 - Shortness of Breath 14 - Other: See Comments Comments: Chest pain PENICILLINS 02/12/1999 4 - Hives SULFA (SULFONAMIDE ANTIBIOTICS) 10/12/2008 4 - Hives VICTOZA (LIRAGLUTIDE) 07/22/2016 14 - Other: See Comments Comments: Acute pancreatitis Date Reviewed: 08/11/2017 Reviewed by: Gemma Tejada Ma - Fully Assessed Reason for Visit: Consult [502] Primary Visit Diagnosis:Ulcerative pancolitis with fistula (HCC) [K51.013] Other Visit Diagnoses:Preoperative examination [Z01.818] Obstructive sleep apnea [G47.33] 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, J98.4] Coronary artery disease involving [place] coronary artery of [place] heart without angina pectoris [I25.10] Prescriptions as of 08/11/2017 Sig: BUPRENORPHINE 5 MCG/HOUR WEEK* Apply 1 Patch as directed onc* PREGABALIN 50 MG CAPSULE Take 50 mg by mouth twice osiel* ATORVASTATIN 80 MG TABLET Take 1 tablet by mouth daily * INSULIN ASPART U-100 100 UNI* Inject 20-40 Units subcutaneo* ONDANSETRON HCL 4 MG TABLET Take 4 mg by mouth as needed.* INSULIN GLARGINE (U-100) 100 * Inject 30 units in the mornin* Patient taking differently: Inject 60 units in the mornin* OXYCODONE-ACETAMINOPHEN 5 MG-* Take 1 tablet by mouth every * COMPOUNDED PRESCRIPTION Convatec - Juanita Cohesive Ost* COMPOUNDED PRESCRIPTION Convatec - Esteem 10 draina* DULOXETINE 60 MG CAPSULE,JOIE* Take 1 capsule by mouth twice* COMPOUNDED PRESCRIPTION PEREZ AND NEPHEW Skin- Prep. V4* ALPRAZOLAM 0.5 MG TABLET Take 0.5 tablets by mouth twi* BUPROPION HCL 75 MG TABLET Take 1 tablet by mouth twice * PEN NEEDLE, DIABETIC 31 GAUGE* Inject 4-6 times daily TRANSCUTANEOUS ELECTRICAL NER* 1 Device as directed. ISOSORBIDE DINITRATE 30 MG TA* Take 1 tablet by mouth three * BLOOD SUGAR DIAGNOSTIC STRIPS TEST BLOOD SUGAR(S)5-6 DAILY.* FUROSEMIDE 20 MG TABLET Take 1 tablet by mouth once d* COMPOUNDED PRESCRIPTION SHARPS IRONER OR PRESSER. Dx: E11.65* COMPOUNDED PRESCRIPTION CONVATEC Allkare Adhesive rem* MAGNESIUM OXIDE 400 MG TABLET Take 1 tablet by mouth three * Patient taking differently: Take 400 mg by mouth twice da* METOPROLOL TARTRATE 50 MG TAB* Take 1.5 tablets by mouth thr* ASPIRIN 81 MG CHEWABLE TABLET Take 81 mg by mouth once alexander* NITROGLYCERIN 0.4 MG SUBLINGU* Dissolve 0.4 mg under the ton* CLOPIDOGREL 75 MG TABLET Take 75 mg by mouth once alexander* URSODIOL 300 MG CAPSULE Take 1 capsule by mouth twice* FENOFIBRATE MICRONIZED 200 MG* Take 1 capsule by mouth daily* Patient not taking: Reported on 08/11/2017 PANTOPRAZOLE 40 MG TABLET,DEL* Take 1 tablet by mouth daily * Problem List As Of Date 08/11/2017 Noted Resolved Uncontrolled diabetes mellitus (HCC) [E11.65] INVALID FOR*04/04/2015 CAD (coronary artery disease) [I25.10] INVALID FOR* More... S/p total colectomy [Z90.49] INVALID FOR* More... COPD (chronic obstructive pulmonary disease) (H*INVALID FOR* More... Hyperlipidemia [E78.5] INVALID FOR* HTN (hypertension) [I10] INVALID FOR* CHF (congestive heart failure) (HCC) [I50.9] INVALID FOR* Chest pain at rest [R07.9] INVALID FOR* More... ANKITA on CPAP [G47.33, Z99.89] INVALID FOR* Depression with anxiety [F41.8] INVALID FOR* CKD (chronic kidney disease) stage 3, GFR 30-59*INVALID FOR* Pulmonary hypertension, moderate to severe (HCC*INVALID FOR* Migraine [G43.909] INVALID FOR* Ileostomy in place (HCC) [Z93.2] INVALID FOR* Hypoxemia [R09.02] INVALID FOR* Open wound of abdominal wall, anterior, complic*INVALID FOR*07/05/2015 Pain in right elbow [M25.521] INVALID FOR*03/24/2016 Diabetes mellitus type 2, uncontrolled, without*INVALID FOR* Low back pain without sciatica [M54.5] INVALID FOR* More... Neuropathic pain of chest [M79.2] INVALID FOR* More... 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 Encounter Status:Closed by SHERINE NUÑEZ MD on 08/11/17 HISTORY PHYSICAL Observed: 08/11/2017 Status: COMPLETED Source: [place] 9:59 AM [facility] REPOSITORY HNO ID: [id number] Author: Sherine Nuñez Service: (none) Author Type: Physician Type: HANDP Filed: 08/11/2017 6:06 PM Note Text: CC: Ailyn Méndez is a pleasant 48-year-old female who presents for preoperative evaluation prior to surgery for closure of small bowel fistula. Consult requested by Dr.Efewongbe Mcgrath. Results will be communicated via letter or electronic record. Mrs Méndez presents for pre operative pulmonary evaluation prior to surgery for Exploratory laporotomy and closure of small bowel fistula with a history of ulcerative colitis. The patient states that she has had ulcerative colitis for 41 years. She had a colectomy in 1979. Through the years the patient has had an episode of bowel obstruction and now has a fistula which needs to be removed. Other comorbidities includes CAD with OHS and CABG x 5 in 2012. Since then she has had 9 stents at [facility]. The patient still has anterior chest pain which is chronic in nature. It is not believed to be cardiac in origin. Echocardiogram from 08/05/17 demonstrates an ejection fraction of 67% with normal left ventricular function. Grade 1 diastolic dysfunction From a pulmonary standpoint the patieit has a 40 star year smoking history. Stopping in 2012. She denies a history of asthma or recurrent pulmonary disease. Spirometry today showes no obstruction. Diffusion capacity is normal. Admits to sleep apnea managed with CPAP 7 centimeters water pressure without oxygen. This was diagnosed in 2013 in [facility]. I have recommended that she bring her equipment at the time of surgery. Assessment: Preoperative pulmonary evaluation prior to surgery for a laparotomy and closure of Small bowel fistula. Cardiac evaluation scheduled. From a pulmonary standpoint the patient is an ASA III physical status classification. She has obstructive sleep apnea requiring a CPAP of 7 cm of water pressure without oxygen. Her spirometry does not demonstrate obstruction, but I suspect she has a mixed obstructive and restrictive process. I would recommend an albuterol nebulizer twice a day post operatively until discharge. Incentive spirometry every 3 hours while awake. Mrs. Méndez has used steroids repeatedly through the past several years for numerous problems. I would recommend a steroid prep at the time of surgery. Solu-Medrol 15 mg IV every 6 hours ?4 doses and stop. Recommend the patient out of the bed in a chair as soon as possible with early ambulation. REVIEW OF OUTSIDE/[facility] RECORDS: ?[facility] [place] ?Pulmonary Function Lab ?Pred ? ? ? LLN ? ULN ? ? ? Pre ? ? % ? Date ? [id number] ? Time ?08:56AM ? Height ?170.5 ? Weight ? 93.8 ? FVC ?3.72 ? ? ?2.96 ?4.49 ? ? ?2.47 ? ? 66 ? FEV 1 ?2.89 ? ? ?2.24 ?3.53 ? ? ?1.73 ? ? 60 ? FEV1%F ? ? ?78.27 ? ? 68.48 88.07 ? ? 70.24 ? ? 90 ? FEV 2 ?2.84 ? ? ?2.10 ?3.58 ? ? ?1.96 ? ? 69 ? FEV 3 ?3.27 ? ? ?2.65 ?3.89 ? ? ?2.08 ? ? 64 ? FEV3%E ? ? ?92.57 ? ? 87.21 97.93 ? ? 84.35 ? ? 91 ? MEF 50 ? ? ? 3.47 ? ? ?2.30 ?4.65 ? ? ?1.60 ? ? 46 ? FIF 50 ? 2.98 ? F25/75 ? ? ? 2.58 ? ? ?1.22 ?3.94 ? ? ?0.87 ? ? 34 ? FE%FIF ?53.65 ? FEV6 ? 2.27 ? PEF ?6.14 ? ? ?4.41 ?7.87 ? ? ?5.54 ? ? 90 ? FET ? 14.91 ? FETPEF ? 0.08 ? VBe%FV ? 3.29 ? VBEex ?0.08 ? VC MAX ? 3.72 ? ? ?2.96 ?4.49 ? ? ?2.53 ? ? 68 ? DLCO ?23.00 ? ? 16.49 29.51 ? ? 18.09 ? ? 79 ? DL/VA ?4.32 ? ? ?3.00 ?5.64 ? ? ?4.82 ? ?112 ? DLCOc ? ? ? 23.00 ? ? 16.49 29.51 ? ? 17.93 ? ? 78 ? DL/VAc ? ? ? 4.32 ? ? ?3.00 ?5.64 ? ? ?4.78 ? ?111 ? NAME : AILYN MÉNDEZ PID : [id number] : 1960 Gender : Female Race : ORD : [id number] ? Procedure Date : Aug 09 2017 07:25:32 Edit Date : Aug 09 2017 07:29:05 ? Diagnosis:NORMAL SINUS RHYTHM ST AND ANTEROLATERAL T WAVE ABNORMALITY ABNORMAL ECG PULMONARY REVIEW: PULM MEDS: albuterol rescue inhaler q4h prn ALLERGIES: Reaction Severity Reaction Type Noted Valid Until Updated Allergies Cinnamon Anaphylaxis High Allergy 06/06/2008 Past Updates... Airborne and ingested reactions: throat AND lips swell, SOB Azulfidine [Sulfasalazine] Hives Not Specified 10/12/2008 Past Updates... Codeine Intolerance Not Specified 06/06/2008 Past Updates... Stops ileostomy functioning-severe constipation Flagyl [Metronidazole Hcl] Hives Not Specified Allergy 08/18/2013 Past Updates... Influenza Virus Vaccines Shortness of Breath, Other: See Comments Not Specified Allergy 12/17/2015 Past Updates... Chest pain Penicillins Hives Not Specified 02/12/1999 Past Updates... Sulfa (sulfonamide Antibiotics) Hives Not Specified 10/12/2008 Past Updates... Adverse Reactions/Drug Intolerances Dicyclomine Vomiting High Side Effect/Intolerance 08/18/2013 Past Updates... Fluzone High-dose (pf) [Flu Vacc [id number] 65yr Up(pf)] Shortness of Breath Not Specified Side Effect/Intolerance 01/08/2016 Past Updates... Difficulty breathing, chest pain Glucophage [Metformin Hcl] GI Upset Not Specified Side Effect/Intolerance 09/11/2013 Past Updates... Victoza [Liraglutide] Other: See Comments Not Specified Side Effect/Intolerance 07/22/2016 Past Updates... Acute pancreatitis OCCUP EXPOSURE: NONE TB EXPOSURE: NONE REVIEW OF OTHER SYSTEMS: Preventive Medicine: Up to date with health screenings GEN :No fever, chills or sweats. No fatigue Wt. stable. WT 206 HT 5 FT 7 IN NEURO :Denies syncope, WOLF. No seizures. No numbness or tingling EYES :No h/o uveitis, glaucoma, cataracts. Denies diplopia ENT :Denies sinusitis, rhinitis, post nasal drip or oral concerns. GI: Denies BM changes. No h/o ulcers, dysphagia or heartburn ENDO :Denies thyroid disease. HAS DM ON INSULIN X 10 YEARS CARD :No CP , palpitations, edema. No diagnosed heart disease CAD :No hematuria, kidney disease or bladder concerns Chronic kidney disease. DERM :Denies skin rash, flushing, or lesions MSK :Negative for swelling. HAS ARTHRITIS OF THE SPINE AND DISK DISEASE. JOSE :Denies bruising, blood clots or swollen nodes EXT: Denies pedal edema, DVT PSYCH: Denies sleep disturbance or mood disorder Health Risks: :Ulcerative colitis, coronary artery disease Ms. Méndez is not having pain related to the reason for this visit. SOCIAL HISTORY Tobacco Use: .5 packs/day, for 20 years. Quit 05/06/2012. Types: Cigarettes PAST MEDICAL HISTORY Diagnosis Date - Back pain - CAD (coronary artery disease) 08/18/2013 Dr. Cresencio Stone, [facility] - Chest pain at rest 08/21/2013 Dr. John, Pain Management - CHF (congestive heart failure) ([facility]) 08/21/2013 - Chronic abdominal wound infection - CKD (chronic kidney disease) stage 3, GFR 30-59 ml/min 08/21/2013 - CKD (chronic kidney disease), stage II 08/21/2013 - COPD (chronic obstructive pulmonary disease) ([facility]) 08/18/2013 Dr. Cherelle Lazo, pulmonary - Depression with anxiety 08/21/2013 - Fistula - History of Meniere's disease 1993 surgical treatment - HTN (hypertension) 08/18/2013 - Hyperlipidemia 08/18/2013 - Hypoxemia 12/18/2013 Dr. Cherelle Lazo, pulmonary - Migraine 08/21/2013 - Neck pain - ANKITA on CPAP 08/21/2013 - Pulmonary hypertension, moderate to severe 08/21/2013 - S/P total colectomy 08/18/2013 Ulcerative colitis, ileostomy. - Type II or unspecified type diabetes mellitus without mention of complication, uncontrolled 08/18/2013 - Ulcerative colitis ([facility]) PAST SURGICAL HISTORY Procedure Laterality Date - CABG, ARTERY-VEIN, FOUR 2012 CABG, quadruple grafts - DELIVERY ONLY 1988 , low transverse - DEBRIDEMENT:CURRETATE, SKIN SUBCUTANEOUS 08/14/2014 chronic abdominal wound - DECOMPRESS FACIAL NERVE,TOTAL 1993 Facial nerve decomp, 1993, Right side - ILEOSTOMY 1982 - LEFT HEART CATH,PERCUTANEOUS 07/10/2013 Cardiac cath, L heart - LEFT HEART CATH,PERCUTANEOUS 09/04/2015 Cardiac cath, L heart - LOCAL REVISION OF ILESTOMY 2007 - STENT PLACEMENT,PERCUTAN,EACH 08/2012;09/2012; multiple - TOTAL ABDOM HYSTERECTOMY 1990 Hysterectomy, CIRO, bilateral SO FAMILY HISTORY Problem Relation Age of Onset - Cancer Father - Diabetes Mother - Stroke Mother - None Sister - Heart Failure Brother - pancreatitis [Other] [OTHER] Brother PHYSICAL EXAMINATION: BP 133/64 Pulse 74 Temp 36.4 ?C (97.5 ?F) Resp 18 Ht 170.2 cm (5' 7) Wt 93.4 kg (206 lb) SpO2 92% BMI 32.26 kg/m? GENERAL APPEARANCE: well appearing, alert, in no acute distress, well-hydrated, well nourished INTEGUMENT: skin color, texture, turgor normal, no suspicious rashes or lesions EYES: Anicteric sclera. Pupils are equally round and reactive to light, and extraocular movements are intact. ENT Head: normal Ears: external ears normal, canals clear, TM's normal Nose/Sinuses: negative Mouth: lips, mucosa, and teeth normal. Tongue,oropharynx normal RESPRATORY: lungs clear to auscultation, no wheezing, rales, or rhonchi, Thorax is symmetric with no evidence of paradoxical respiration. BREAST EXAM DEFERRED. No axillary lymphadenopathy. Neck is supple, with normal size, and no thyroid enlargement or mass. CARDIAC: RRR without murmur, or bruit Peripheral vascular: normal pulses and symmetric in upper and lower extremities. No venous iinsufficiency GASTROENTEROLOGYI: I Moderate tenderness right lower quadrant. EXTREMITIES: No deformities, pedal edema, or skin discoloration. MUSCULOSKELETAL; Spine range of motion normal. Muscular strength intact GENITOURINARY: No CVA tenderness NEURO: Gait normal. Motor appears normal. Sensation grossly intact, HEMATOLOGIC/LYMPHATIC/ IMMUNOLOGIC: No evidence of a supra-clavicular, infra-clavicular, or femoral lymphadenopathy. No ecchymosis. PSYCHIATRIC: Mentation and affect normal. Oriented x 3 DR SHERINE NUÑEZ XR CHEST 2V FRONTAL/LAT Observed: 08/11/2017 Status: F Source: [place] 8:34 AM [facility] REPOSITORY * * *Final Report* * * DATE OF EXAM: Aug 11 2017 8:34AM AOX [id number] - XR CHEST 2V FRONTAL/LAT / PROCEDURE REASON: Shortness of breath * * * * Physician Interpretation * * * * EXAMINATION: CHEST RADIOGRAPH (2 VIEW FRONTAL and LATERAL) Clinical History: Shortness of breath MQ: XC2_5 Comparison: 05/07/2016 RESULT: Lines, tubes, and devices: None. Lungs and pleura: No consolidation. No lung mass. No pleural effusion. No pneumothorax. Questionable bilateral bronchial thickening. Cardiomediastinal silhouette: Status post median sternotomy and CABG. Normal cardiomediastinal silhouette. Other: Mild degenerative changes in the thoracic spine. IMPRESSION: No acute radiographic abnormality. Jboss Developer: PSCParminder Transcribe Date/Time: Aug 11 2017 9:08A Dictated by : NABEEL CALDERA MD This examination was interpreted and the report reviewed and electronically signed by: SARAI GUTIERREZ MD on Aug 11 2017 12:01PM EST [id number] PROGRESS Observed: 08/11/2017 Status: COMPLETED Source: [place] 8:30 AM [facility] REPOSITORY HNO ID: [id number] Author: Richelle Still Service: (none) Author Type: (none) Type: Progress Notes Filed: 08/11/2017 8:30 AM Note Text: Radiology Service Progress Note PATIENT NAME: Ailyn Méndez DATE OF SERVICE: August 11, 2017 TIME: 8:30 AM PATIENT IDENTITY VERIFICATION COMPLETED USING TWO (2) METHODS: Patient confirmed name verbally and Date of . PATIENT GENDER DATA: Female. status: : No status: NO. PATIENT RELEVANT IMPLANT DATA REVIEWED: Not Applicable RADIOLOGY DEPARTMENT: General X-ray: Exam(s) Completed: Chest X-Ray PERIPHERAL IV DATA: Not applicable SIGNED BY: Richelle Still August 11, 2017 8:30 AM CNOV Observed: 08/09/2017 Status: COMPLETED Source: [place] 2:40 PM [facility] REPOSITORY Office Visit (PASCUAL) AILYN MÉNDEZ ([id number]) 1960 F Date Time Provider Department 08/09/17 2:40 PM DEAN ROSE During your visit today, we recorded the following information about you: Weight Height 93 kg 1.702 m Dean Rose MD [facility] 08/09/2017 3:54 PM Signed HISTORY AND PHYSICAL EXAMINATION SERVICE DATE: 08/09/2017 SERVICE TIME: 2:14 PM PRIMARY CARE PHYSICIAN: Shannan Mcgrath MD REASON FOR VISIT Ailyn Méndez is a 57 year old female who is being seen for pre-op education, conversation and consent. Patient is having a EXPLORATORY LAPAROTOMY ADULT and CLOSE FISTUA SMALL BOWEL TO SMALL BOWEL ADULT On 08/19/[address] Dean Rose The patient has the following: ACTIVE PROBLEM LIST Cad (Coronary Artery Disease) S/P Total Colectomy Copd (Chronic Obstructive Pulmonary Disease) ([facility]) Hyperlipidemia Htn (Hypertension) Chf (Congestive Heart Failure) ([facility]) Chest Pain At Rest Ankita On Cpap Depression With Anxiety Ckd (Chronic Kidney Disease) Stage 3, Gfr 30-59 Ml/Min Pulmonary Hypertension, Moderate to Severe Migraine Ileostomy in Place ([facility]) Hypoxemia Diabetes Mellitus Type 2, Uncontrolled, Without Complications ([facility]) Low Back Pain Without Sciatica Neuropathic Pain of Chest Psoriasis Lower Abdominal Pain Chronic Bilateral Low Back Pain With Right-Sided Sciatica Lumbar Facet Arthropathy ([facility]) Bmi 32.0-32.9,Adult Fistula of Intestine PAST MEDICAL HISTORY Diagnosis Date - Back pain - CAD (coronary artery disease) 08/18/2013 Dr. Cresencio Stone, [facility] - Chest pain at rest 08/21/2013 Dr. John, Pain Management - CHF (congestive heart failure) ([facility]) 08/21/2013 - Chronic abdominal wound infection - CKD (chronic kidney disease) stage 3, GFR 30-59 ml/min 08/21/2013 - CKD (chronic kidney disease), stage II 08/21/2013 - COPD (chronic obstructive pulmonary disease) ([facility]) 08/18/2013 Dr. Cherelle Lazo, pulmonary - Depression with anxiety 08/21/2013 - Fistula - History of Meniere's disease 1993 surgical treatment - HTN (hypertension) 08/18/2013 - Hyperlipidemia 08/18/2013 - Hypoxemia 12/18/2013 Dr. Cherelle Lazo, pulmonary - Migraine 08/21/2013 - Neck pain - ANKITA on CPAP 08/21/2013 - Pulmonary hypertension, moderate to severe 08/21/2013 - S/P total colectomy 08/18/2013 Ulcerative colitis, ileostomy. - Type II or unspecified type diabetes mellitus without mention of complication, uncontrolled 08/18/2013 - Ulcerative colitis ([facility]) PAST SURGICAL HISTORY Procedure Laterality Date - CABG, ARTERY-VEIN, FOUR 2012 CABG, quadruple grafts - DELIVERY ONLY 1988 , low transverse - DEBRIDEMENT:CURRETATE, SKIN SUBCUTANEOUS 08/14/2014 chronic abdominal wound - DECOMPRESS FACIAL NERVE,TOTAL 1993 Facial nerve decomp, 1993, Right side - ILEOSTOMY 1982 - LEFT HEART CATH,PERCUTANEOUS 07/10/2013 Cardiac cath, L heart - LEFT HEART CATH,PERCUTANEOUS 09/04/2015 Cardiac cath, L heart - LOCAL REVISION OF ILESTOMY 2007 - STENT PLACEMENT,PERCUTAN,EACH 08/2012;09/2012; multiple - TOTAL ABDOM HYSTERECTOMY 1991 Hysterectomy, CIRO, bilateral SO FAMILY HISTORY Problem Relation Age of Onset - Cancer Father - Diabetes Mother - Stroke Mother - None Sister - Heart Failure Brother - pancreatitis [Other] [OTHER] Brother SOCIAL HISTORY: Social History Substance Use Topics - Smoking status: Former Smoker Packs/day: 0.50 Years: 20.00 Types: Cigarettes Quit date: 05/06/2012 - Smokeless tobacco: Never Used - Alcohol use No MEDICATIONS Prior to Admission medications as of 08/09/17 1032 Medication Sig Last Dose Taking pregabalin (LYRICA) 50 mg capsule Take 50 mg by mouth twice daily. Taking atorvastatin (LIPITOR) 80 mg tablet Take 1 tablet by mouth daily at bedtime. For cholesterol. Taking ursodiol (ACTIGALL) 300 mg capsule Take 1 capsule by mouth twice daily. fenofibrate (LOFIBRA) 200 mg capsule Take 1 capsule by mouth daily with breakfast. insulin aspart (NOVOLOG) 100 unit/mL soln Inject 20-40 Units subcutaneously three times daily with meals. Taking ondansetron (ZOFRAN) 4 mg tablet Take 4 mg by mouth as needed. Taking insulin glargine (BASAGLAR KWIKPEN) 100 unit/mL (3 mL) inpn Inject 30 units in the morning and 40 units at night Indications: DIABETES MELLITUS Patient taking differently: Inject 60 units in the morning and 70 units at night Taking pantoprazole DR (PROTONIX) 40 mg tablet Take 1 tablet by mouth daily before breakfast. Take on empty stomach, 1/2 hr before meal. Patient not taking: Reported on 08/09/2017 Not Taking oxyCODONE-acetaminophen (PERCOCET) 5-325 mg tablet Take 1 tablet by mouth every 8 hours as needed for Pain. Patient not taking: Reported on 08/09/2017 Not Taking COMPOUNDED PRESCRIPTION Convatec - Juanita Cohesive Ostomy Seals #[id number] Dx: V45.89; V44.2 COMPOUNDED PRESCRIPTION Convatec - Esteem 10 drainable ostomy pouch #[id number] Dx: V45.89; V44.2 DULoxetine (CYMBALTA) 60 mg capsule Take 1 capsule by mouth twice daily. Taking COMPOUNDED PRESCRIPTION PEREZ AND NEPHEW Skin-Prep. V45.89, V44.2. Use as directed twice a week. Taking ALPRAZolam (XANAX) 0.5 mg tablet Take 0.5 tablets by mouth twice daily as needed. Taking buPROPion (WELLBUTRIN) 75 mg tablet Take 1 tablet by mouth twice daily. Patient not taking: Reported on 08/09/2017 Not Taking insulin needles, DISPOSABLE, (BD INSULIN PEN NEEDLE UF) 31 gauge x 5/16 ndle Inject 4-6 times daily Taking TENS Units widny 1 Device as directed. Taking isosorbide dinitrate (ISORDIL, SORBITRATE) 30 mg tablet Take 1 tablet by mouth three times daily. Taking blood sugar diagnostic (FREESTYLE LITE STRIPS) test strip TEST BLOOD SUGAR(S)5-6 DAILY. DX: DIABETES. INSULIN: YES Taking furosemide (LASIX) 20 mg tablet Take 1 tablet by mouth once daily. Taking COMPOUNDED PRESCRIPTION SHARPS IRONER OR PRESSER. Dx: E11.65. On insulin. Taking COMPOUNDED PRESCRIPTION CONVATEC Allkare Adhesive remover. V45.89, V44.2. Use twice a week as directed. Taking magnesium oxide (MAG-OX) 400 mg tablet Take 1 tablet by mouth three times daily. Patient taking differently: Take 400 mg by mouth twice daily. Taking metoprolol tartrate, short acting, 50 mg tablet Take 1.5 tablets by mouth three times daily. Taking aspirin (ASPIRIN CHILDRENS) 81 mg chewable tablet Take 81 mg by mouth once daily. Taking nitroglycerin sublingual (NITROSTAT) 0.4 mg SL tablet Dissolve 0.4 mg under the tongue every 5 minutes as needed. clopidogrel (PLAVIX) 75 mg tablet Take 75 mg by mouth once daily. Taking No medication comments found. CURRENT ALLERGIES ALLERGIES Allergen Reactions - Cinnamon Anaphylaxis Airborne and ingested reactions: throat AND lips swell, SOB - Dicyclomine Vomiting - Azulfidine [Sulfasa* Hives - Codeine Intolerance Stops ileostomy functioning-severe constipation - Flagyl [Metronidazo* Hives - Fluzone High-Dose 2* Shortness of Breath Difficulty breathing, chest pain - Glucophage [Metform* GI Upset - Influenza Virus Vac* Shortness of Breath, Other: See Comments Chest pain - Penicillins Hives - Sulfa (Sulfonamide * Hives - Victoza [Liraglutid* Other: See Comments Acute pancreatitis Diagnostic tests reviewed for today's visit: No new labs or tests ASSESSMENT There is no known pertinent medical condition which may affect malini-operative course PLAN CONSULTS: Patient does not require consults for optimization at this time. Procedure:Laparotomy for the ileo-cutaneous fistula. The risks, benefits and anticipated outcomes of the procedure, the risks and benefits of the alternatives to the procedure and the roles and tasks of the personnel to be involved were discussed with the patient and the patient consents to the procedure and agrees to proceed. I verify that I personally obtained Ailyn Méndez's consent. The Following Tests/Procedures Have Been Initiated: None Instructions Given to Patient: Patient given verbal and written preop instructions and voices comprehension and compliance. Dean Rose MD FACS Dept of COLORECTAL SURGERY August 09, 2017 2:14 PM Referring Provider: DEAN ROSE [[id number]] Allergies As of Date: 08/09/2017 Noted Allergy Reaction CINNAMON 06/06/2008 10 - Anaphylaxis Comments: Airborne and ingested reactions: throat AND lips swell, SOB DICYCLOMINE 08/18/2013 11 - Vomiting AZULFIDINE (SULFASALAZINE) 10/12/2008 4 - Hives CODEINE 06/06/2008 5 - Intolerance Comments: Stops ileostomy functioning-severe constipation FLAGYL (METRONIDAZOLE HCL) 08/18/2013 4 - Hives FLUZONE HIGH-DOSE (PF) (F*01/08/2016 12 - Shortness of Breath Comments: Difficulty breathing, chest pain GLUCOPHAGE (METFORMIN HCL) 09/11/2013 8 - GI Upset INFLUENZA VIRUS VACCINES 12/17/2015 12 - Shortness of Breath 14 - Other: See Comments Comments: Chest pain PENICILLINS 02/12/1999 4 - Hives SULFA (SULFONAMIDE ANTIBIOTICS) 10/12/2008 4 - Hives VICTOZA (LIRAGLUTIDE) 07/22/2016 14 - Other: See Comments Comments: Acute pancreatitis Date Reviewed: 08/09/2017 Reviewed by: Daniel Vasquez) DANDRE Weinberg - Fully Assessed Reason for Visit: Pre-Op Exam [87] Reason For Visit History Recorded Primary Visit Diagnosis:Fistula of intestine [K63.2] Prescriptions as of 08/09/2017 Sig: BUPRENORPHINE 5 MCG/HOUR WEEK* Apply 1 Patch as directed onc* PREGABALIN 50 MG CAPSULE Take 50 mg by mouth twice osiel* ATORVASTATIN 80 MG TABLET Take 1 tablet by mouth daily * FENOFIBRATE MICRONIZED 200 MG* Take 1 capsule by mouth daily* INSULIN ASPART U-100 100 UNI* Inject 20-40 Units subcutaneo* ONDANSETRON HCL 4 MG TABLET Take 4 mg by mouth as needed.* INSULIN GLARGINE (U-100) 100 * Inject 30 units in the mornin* Patient taking differently: Inject 60 units in the mornin* PANTOPRAZOLE 40 MG TABLET,DEL* Take 1 tablet by mouth daily * OXYCODONE-ACETAMINOPHEN 5 MG-* Take 1 tablet by mouth every * COMPOUNDED PRESCRIPTION Convatec - Juanita Cohesive Ost* COMPOUNDED PRESCRIPTION Convatec - Esteem 10 draina* DULOXETINE 60 MG CAPSULE,JOIE* Take 1 capsule by mouth twice* COMPOUNDED PRESCRIPTION PEREZ AND NEPHEW Skin- Prep. V4* ALPRAZOLAM 0.5 MG TABLET Take 0.5 tablets by mouth twi* BUPROPION HCL 75 MG TABLET Take 1 tablet by mouth twice * PEN NEEDLE, DIABETIC 31 GAUGE* Inject 4-6 times daily TRANSCUTANEOUS ELECTRICAL NER* 1 Device as directed. ISOSORBIDE DINITRATE 30 MG TA* Take 1 tablet by mouth three * BLOOD SUGAR DIAGNOSTIC STRIPS TEST BLOOD SUGAR(S)5-6 DAILY.* FUROSEMIDE 20 MG TABLET Take 1 tablet by mouth once d* COMPOUNDED PRESCRIPTION SHARPS IRONER OR PRESSER. Dx: E11.65* MAGNESIUM OXIDE 400 MG TABLET Take 1 tablet by mouth three * Patient taking differently: Take 400 mg by mouth twice da* METOPROLOL TARTRATE 50 MG TAB* Take 1.5 tablets by mouth thr* ASPIRIN 81 MG CHEWABLE TABLET Take 81 mg by mouth once alexander* NITROGLYCERIN 0.4 MG SUBLINGU* Dissolve 0.4 mg under the ton* CLOPIDOGREL 75 MG TABLET Take 75 mg by mouth once alexander* URSODIOL 300 MG CAPSULE Take 1 capsule by mouth twice* COMPOUNDED PRESCRIPTION CONVATEC Allkare Adhesive rem* Medication notes this encounter CLOPIDOGREL 75 MG TABLET >> Daniel Weinberg LPN, LPN 08/09/2017 2:19 PM >> DANIEL WEINBERG Aug 09, 2017 2:19 PM Patient instructed to stop on August Problem List As Of Date 08/09/2017 Noted Resolved Uncontrolled diabetes mellitus (HCC) [E11.65] INVALID FOR*04/04/2015 CAD (coronary artery disease) [I25.10] INVALID FOR* More... S/p total colectomy [Z90.49] INVALID FOR* More... COPD (chronic obstructive pulmonary disease) (H*INVALID FOR* More... Hyperlipidemia [E78.5] INVALID FOR* HTN (hypertension) [I10] INVALID FOR* CHF (congestive heart failure) (HCC) [I50.9] INVALID FOR* Chest pain at rest [R07.9] INVALID FOR* More... ANKITA on CPAP [G47.33, Z99.89] INVALID FOR* Depression with anxiety [F41.8] INVALID FOR* CKD (chronic kidney disease) stage 3, GFR 30-59*INVALID FOR* Pulmonary hypertension, moderate to severe (HCC*INVALID FOR* Migraine [G43.909] INVALID FOR* Ileostomy in place (HCC) [Z93.2] INVALID FOR* Hypoxemia [R09.02] INVALID FOR* Open wound of abdominal wall, anterior, complic*INVALID FOR*07/05/2015 Pain in right elbow [M25.521] INVALID FOR*03/24/2016 Diabetes mellitus type 2, uncontrolled, without*INVALID FOR* Low back pain without sciatica [M54.5] INVALID FOR* More... Neuropathic pain of chest [M79.2] INVALID FOR* More... 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 Encounter Status:Closed by DEAN ROSE MD, FACS on 08/09/17 PROGRESS Observed: 08/09/2017 Status: COMPLETED Source: [place] 2:13 PM [facility] REPOSITORY HNO ID: [id number] Author: Dean Rose Service: (none) Author Type: Physician Type: Progress Notes Filed: 08/09/2017 3:54 PM Note Text: HISTORY AND PHYSICAL EXAMINATION SERVICE DATE: 08/09/2017 SERVICE TIME: 2:14 PM PRIMARY CARE PHYSICIAN: Shannan Mcgrath MD REASON FOR VISIT Ailyn Méndez is a 57 year old female who is being seen for pre-op education, conversation and consent. Patient is having a EXPLORATORY LAPAROTOMY ADULT and CLOSE FISTUA SMALL BOWEL TO SMALL BOWEL ADULT On 08/19/[address] Dean Rose The patient has the following: ACTIVE PROBLEM LIST Cad (Coronary Artery Disease) S/P Total Colectomy Copd (Chronic Obstructive Pulmonary Disease) ([facility]) Hyperlipidemia Htn (Hypertension) Chf (Congestive Heart Failure) ([facility]) Chest Pain At Rest Ankita On Cpap Depression With Anxiety Ckd (Chronic Kidney Disease) Stage 3, Gfr 30-59 Ml/Min Pulmonary Hypertension, Moderate to Severe Migraine Ileostomy in Place ([facility]) Hypoxemia Diabetes Mellitus Type 2, Uncontrolled, Without Complications ([facility]) Low Back Pain Without Sciatica Neuropathic Pain of Chest Psoriasis Lower Abdominal Pain Chronic Bilateral Low Back Pain With Right-Sided Sciatica Lumbar Facet Arthropathy ([facility]) Bmi 32.0-32.9,Adult Fistula of Intestine PAST MEDICAL HISTORY Diagnosis Date - Back pain - CAD (coronary artery disease) 08/18/2013 Dr. Cresencio Stone, [facility] - Chest pain at rest 08/21/2013 Dr. John, Pain Management - CHF (congestive heart failure) ([facility]) 08/21/2013 - Chronic abdominal wound infection - CKD (chronic kidney disease) stage 3, GFR 30-59 ml/min 08/21/2013 - CKD (chronic kidney disease), stage II 08/21/2013 - COPD (chronic obstructive pulmonary disease) ([facility]) 08/18/2013 Dr. Cherelle Lazo, pulmonary - Depression with anxiety 08/21/2013 - Fistula - History of Meniere's disease 1994 surgical treatment - HTN (hypertension) 08/18/2013 - Hyperlipidemia 08/18/2013 - Hypoxemia 12/18/2013 Dr. Cherelle Lazo, pulmonary - Migraine 08/21/2013 - Neck pain - ANKITA on CPAP 08/21/2013 - Pulmonary hypertension, moderate to severe 08/21/2013 - S/P total colectomy 08/18/2013 Ulcerative colitis, ileostomy. - Type II or unspecified type diabetes mellitus without mention of complication, uncontrolled 08/18/2013 - Ulcerative colitis (HCC) PAST SURGICAL HISTORY Procedure Laterality Date - CABG, ARTERY-VEIN, FOUR 2012 CABG, quadruple grafts - DELIVERY ONLY 1988 , low transverse - DEBRIDEMENT:CURRETATE, SKIN SUBCUTANEOUS 08/14/2014 chronic abdominal wound - DECOMPRESS FACIAL NERVE,TOTAL 1993 Facial nerve decomp, 1993, Right side - ILEOSTOMY 1982 - LEFT HEART CATH,PERCUTANEOUS 07/10/2013 Cardiac cath, L heart - LEFT HEART CATH,PERCUTANEOUS 09/04/2015 Cardiac cath, L heart - LOCAL REVISION OF ILESTOMY 2007 - STENT PLACEMENT,PERCUTAN,EACH 08/2012;09/2012; multiple - TOTAL ABDOM HYSTERECTOMY 1990 Hysterectomy, CIRO, bilateral SO FAMILY HISTORY Problem Relation Age of Onset - Cancer Father - Diabetes Mother - Stroke Mother - None Sister - Heart Failure Brother - pancreatitis [Other] [OTHER] Brother SOCIAL HISTORY: Social History Substance Use Topics - Smoking status: Former Smoker Packs/day: 0.50 Years: 20.00 Types: Cigarettes Quit date: 05/06/2012 - Smokeless tobacco: Never Used - Alcohol use No MEDICATIONS Prior to Admission medications as of 08/09/17 1032 Medication Sig Last Dose Taking pregabalin (LYRICA) 50 mg capsule Take 50 mg by mouth twice daily. Taking atorvastatin (LIPITOR) 80 mg tablet Take 1 tablet by mouth daily at bedtime. For cholesterol. Taking ursodiol (ACTIGALL) 300 mg capsule Take 1 capsule by mouth twice daily. fenofibrate (LOFIBRA) 200 mg capsule Take 1 capsule by mouth daily with breakfast. insulin aspart (NOVOLOG) 100 unit/mL soln Inject 20-40 Units subcutaneously three times daily with meals. Taking ondansetron (ZOFRAN) 4 mg tablet Take 4 mg by mouth as needed. Taking insulin glargine (BASAGLAR KWIKPEN) 100 unit/mL (3 mL) inpn Inject 30 units in the morning and 40 units at night Indications: DIABETES MELLITUS Patient taking differently: Inject 60 units in the morning and 70 units at night Taking pantoprazole DR (PROTONIX) 40 mg tablet Take 1 tablet by mouth daily before breakfast. Take on empty stomach, 1/2 hr before meal. Patient not taking: Reported on 08/09/2017 Not Taking oxyCODONE-acetaminophen (PERCOCET) 5-325 mg tablet Take 1 tablet by mouth every 8 hours as needed for Pain. Patient not taking: Reported on 08/09/2017 Not Taking COMPOUNDED PRESCRIPTION Convatec - Juanita Cohesive Ostomy Seals #[id number] Dx: V45.89; V44.2 COMPOUNDED PRESCRIPTION Convatec - Esteem 10 drainable ostomy pouch #[id number] Dx: V45.89; V44.2 DULoxetine (CYMBALTA) 60 mg capsule Take 1 capsule by mouth twice daily. Taking COMPOUNDED PRESCRIPTION PEREZ AND NEPHEW Skin-Prep. V45.89, V44.2. Use as directed twice a week. Taking ALPRAZolam (XANAX) 0.5 mg tablet Take 0.5 tablets by mouth twice daily as needed. Taking buPROPion (WELLBUTRIN) 75 mg tablet Take 1 tablet by mouth twice daily. Patient not taking: Reported on 08/09/2017 Not Taking insulin needles, DISPOSABLE, (BD INSULIN PEN NEEDLE UF) 31 gauge x 5/16 ndle Inject 4-6 times daily Taking TENS Units windy 1 Device as directed. Taking isosorbide dinitrate (ISORDIL, SORBITRATE) 30 mg tablet Take 1 tablet by mouth three times daily. Taking blood sugar diagnostic (FREESTYLE LITE STRIPS) test strip TEST BLOOD SUGAR(S)5-6 DAILY. DX: DIABETES. INSULIN: YES Taking furosemide (LASIX) 20 mg tablet Take 1 tablet by mouth once daily. Taking COMPOUNDED PRESCRIPTION SHARPS IRONER OR PRESSER. Dx: E11.65. On insulin. Taking COMPOUNDED PRESCRIPTION CONVATEC Allkare Adhesive remover. V45.89, V44.2. Use twice a week as directed. Taking magnesium oxide (MAG-OX) 400 mg tablet Take 1 tablet by mouth three times daily. Patient taking differently: Take 400 mg by mouth twice daily. Taking metoprolol tartrate, short acting, 50 mg tablet Take 1.5 tablets by mouth three times daily. Taking aspirin (ASPIRIN CHILDRENS) 81 mg chewable tablet Take 81 mg by mouth once daily. Taking nitroglycerin sublingual (NITROSTAT) 0.4 mg SL tablet Dissolve 0.4 mg under the tongue every 5 minutes as needed. clopidogrel (PLAVIX) 75 mg tablet Take 75 mg by mouth once daily. Taking No medication comments found. CURRENT ALLERGIES ALLERGIES Allergen Reactions - Cinnamon Anaphylaxis Airborne and ingested reactions: throat AND lips swell, SOB - Dicyclomine Vomiting - Azulfidine [Sulfasa* Hives - Codeine Intolerance Stops ileostomy functioning-severe constipation - Flagyl [Metronidazo* Hives - Fluzone High-Dose 2* Shortness of Breath Difficulty breathing, chest pain - Glucophage [Metform* GI Upset - Influenza Virus Vac* Shortness of Breath, Other: See Comments Chest pain - Penicillins Hives - Sulfa (Sulfonamide * Hives - Victoza [Liraglutid* Other: See Comments Acute pancreatitis Diagnostic tests reviewed for today's visit: No new labs or tests ASSESSMENT There is no known pertinent medical condition which may affect malini-operative course PLAN CONSULTS: Patient does not require consults for optimization at this time. Procedure:Laparotomy for the ileo-cutaneous fistula. The risks, benefits and anticipated outcomes of the procedure, the risks and benefits of the alternatives to the procedure and the roles and tasks of the personnel to be involved were discussed with the patient and the patient consents to the procedure and agrees to proceed. I verify that I personally obtained Ailyn Méndez's consent. The Following Tests/Procedures Have Been Initiated: None Instructions Given to Patient: Patient given verbal and written preop instructions and voices comprehension and compliance. Dean Rose MD FACS Dept of COLORECTAL SURGERY August 09, 2017 2:14 PM CBC AND DIFFERENTIAL Collected: 08/09/2017 Status: F Source: [place] 10:40 AM [facility] [place] REPOSITORY TYPE CODE TESTS RESULT OUT OF REFERENCE UNITS RANGE LAB WBC 3.70-11.00 k/uL WBC 8.99 LAB RBC 3.90-5.20 m/uL RBC 4.97 LAB HGB 11.5-15.5 g/dL Hemoglobin 13.7 LAB HCT 36.0-46.0 % Hematocrit 44.1 LAB MCV 80.0-100.0 fL MCV 88.7 LAB MCH 26.0-34.0 pG MCH 27.6 LAB MCHC 30.5-36.0 g/dL MCHC 31.1 LAB RDWCV 11.5-15.0 % RDW-CV 14.8 LAB PLTCT 150-400 k/uL Platelet Count 181 Result Comment: Result checked and verified No clot detected. LAB MPV 9.0-12.7 fL MPV High 12.8 LAB ANEUT % Neut% 61.2 LAB AANEUT 1.45-7.50 k/uL Abs Neut 5.51 LAB ALYMP % Lymph% 25.8 LAB AALYMP 1.00-4.00 k/uL Abs Lymph 2.32 LAB AMONO % Butler% 6.6 LAB AAMONO <0.87 k/uL Abs Butler 0.59 LAB AEOS % Eosin% 5.6 LAB AAEOS <0.46 k/uL Abs High Eosin 0.50 LAB ABASO % Baso% 0.8 LAB AABASO <0.11 k/uL Abs Baso 0.07 LAB AUNRBC 0 /100 WBC NRBCs 0.0 LAB ABNRBC <0.01 k/uL Absolute nRBC <0.01 LAB DTYP DTYPE Auto Diff Performed By: #### CBCDIF, CMP, LIPA #### [facility] [address] [place], [place] [address] COMP METABOLIC PANEL Collected: 08/09/2017 Status: F Source: [place] 10:40 AM [facility] REPOSITORY TYPE CODE TESTS RESULT OUT OF REFERENCE UNITS RANGE LAB TP 6.3-8.0 g/dL Protein, Total 7.5 LAB ALB 3.9-4.9 g/dL Albumin 4.3 LAB CA 8.5-10.2 mg/dL Calcium, High Total 11.1 LAB TBIL 0.2-1.3 mg/dL Bilirubin, Total 0.5 LAB ALKP 32-117 U/L Alkaline High Phosphatase 168 LAB AST 13-35 U/L AST High 47 LAB GLU 74-99 mg/dL Glucose High 113 Result Comment: The [place] Diabetes Association (ADA) provides guidance for cutoff values for fasting glucose and random glucose. The ADA defines fasting as no caloric intake for at least 8 hours. Fas ting plasma glucose results between 100 to 125 mg/dL indicate increased risk for diabetes (prediabetes). Fasting plasma glucose results greater than or equal to 126 mg/dL meet the criteria for diagnosis of diabetes. In the absence of unequivocal hyperglycemia, results should be confirmed by repeat testing. In a patient with classic symptoms of hyperglycemia or hyperglycemic crisis, random plasma glucose results greater than or equal to 200 mg/dL meet the criteria for diagnosis of diabetes. Reference: Standards of Medical Care in Diabetes 2016, [place] [employer] Association. Diabetes Care. 2016.39(Suppl 1). LAB BUN 7-21 mg/dL BUN 20 LAB CRET 0.58-0.96 mg/dL Creatinine High 1.08 LAB NA 136-144 mmol/L Sodium 141 LAB K 3.7-5.1 mmol/L Potassium 4.6 LAB CL 97-105 mmol/L Chloride 101 LAB CO2 22-30 mmol/L CO2 26 LAB AGAP 9-18 mmol/L Anion Gap 14 LAB ALT 7-38 U/L ALT High 41 LAB GFRAA eGFR- Amer. >60 LAB GFRNAA . eGFR-All Other Races 52 Result Comment: eGFR (Estimated GFR) Units of measure: mL/min/1.73 meters squared eGFR is derived from the reexpressed MDRD Study equation using the following parameters: serum creatinine, age, gender and race. The creatinine assay has been calibrated to be traceable to IDMS. An eGFR <60 mL/min/1.73m2 for >3 months is consistent with chronic kidney disease. Refer to KDOQI guidelines for clinical interpretation. In patients with unstable renal function, e.g. those with acute kidney injury, the eGFR may not accurately reflect actual GFR. Performed By: #### CBCDIF, CMP, LIPA #### [facility] [employer] [address] [address] LIPASE Collected: 08/09/2017 Status: F Source: [place] 10:40 AM [facility] REPOSITORY TYPE CODE TESTS RESULT OUT OF REFERENCE UNITS RANGE LAB LIPA 16-61 U/L Lipase 45 Performed By: #### CBCDIF, CMP, LIPA #### [facility] [employer] [address] [address] TYPE AND SCR (30D) Collected: 08/09/2017 Status: F Source: [place] 10:40 AM [facility] REPOSITORY TYPE CODE TESTS RESULT OUT OF REFERENCE UNITS RANGE LAB %ABR O ABO/RH(D) POSITIVE LAB % Antibody NEG Screen Performed By: #### [id number] #### [facility] [employer] [address] [address] PROGRESS Observed: 08/09/2017 Status: COMPLETED Source: [place] 10:34 AM [facility] REPOSITORY HNO ID: [id number] Author: Marina GomezRn) JUVENCIO Cuadra Service: (none) Author Type: Registered Nurse Type: Progress Notes Filed: 08/18/2017 11:07 AM Note Text: ANESTHESIA PRE-OPERATIVE ASSESSMENT (PACE) SERVICE DATE: 08/09/2017 SERVICE TIME: 0939 ASSESSMENT AND PLAN: Ailyn Méndez is a 57 year old female scheduled for Exploratory lap per Surgery Request Case in [facility] on 08/19/17. PMH: 1. Intestinal fistula- for above surgery 2. CAD- s/p cabg in 06/2012 and a total of 9 stents in 2012, following cabg. Takes isordil, metoprolol, asa- continuing, and plavix- will be stopped for surgery. Followed by os training and development project leader and cleared for surgery. Recent stress test in 07/2017 was negative for ischemia and showed preserved EF. +CP and SOB- stable and unchanged per pt. Pt states CP is not related to activity or rest, present since cabg, she described it as nerve pain, it is a different CP when compared to the CP she had prior to cabg and stents. Most recent stress test and LHC is scanned in [facility]. 3. ?Pulmonary HTN- pt had an echo in the last ~week, PACE requesting. Pt is scheduled to see PULM, CXR and PFTs on 08/11. 4. COPD- prn albuterol- not used often 5. Chronic CHF- normal EF, takes lasix 6.HPL- atorvastatin, fenofibrate 7. GERD- protonix. Hx of gastroparesis, pancreatitis 8. CKD- labs pending 9. DM- glargine and novolog 10. Anxiety depression- wellbutrin, cymbalta, xanax prn 11. Chronic pain- back, abdominal, chest- lyrica, percocet prn [facility]: 4 FC: 2-3 METS: Climb a flight of stairs or walk up a hill (5.50 METs) Patient denies any chest pain or undue shortness of breath with the above physical activity. Patient WILL accept blood products. BLOOD WORK/PRODUCTS ORDERED: Type and Screen , Con ABO HISTORY OF CHRONIC PAIN: Yes - back, abdominal, chest- lyrica, percocet prn PAIN MANAGEMENT OPTIONS: Routine/PRN IV and Final pain management plan will be discussed on the day of surgery. ANESTHETIC OPTIONS: General and Final anesthesia management options will be discussed on day of surgery. PRE-OP PLAN ORDERED: Not Applicable Patient Instructed: ? Nothing to eat or drink after midnight. ? Patient instructed to take the following medications with a sip of water: metoprolol, isordil, protonix, glargine half dose, xanax prn, wellbutrin, cymbalta, lyrica, zofran and percocet prn Vital Signs: BP 110/59 Pulse 69 Ht 170.2 cm (5' 7.01) Wt 93.4 kg (205 lb 14.6 oz) SpO2 95% BMI 32.24 kg/m? BMI 32.24 kg/(m2) Vital signs completed by: LIZZIE Weight acquired: per HANDP. Height acquired: per HANDP Airway Exam: MOUTH OPENING/TMJ: Full jaw ROM MICROGNATHIA/OVERBITE: No MALLAMPATI SCORE is CLASS III UPPER LIP BITE TEST: Class I - Lower incisors can bite the upper lip above the black line DENTITION: Chipped, loose, and/or missing - missing on top sides towards the back THYROMENTAL DIST: WNL SHORT NECK: No NECK CIRCUMFERENCE >40 cm: Appears < than 40 CM NECK FLEX: Full ROM NECK EXTENSION: Full ROM AIRWAY HISTORY: No abnormal airway history ARKS AIRWAY DETAIL: N/A DATA: EKG READING: Unconfirmed - Procedure Date : Aug 09 2017 07:25:32 Edit Date : Aug 09 2017 07:29:05 ? Diagnosis:NORMAL SINUS RHYTHM ST AND ANTEROLATERAL T WAVE ABNORMALITY ABNORMAL ECG ? Ventricular Rate : 69 ?BPM OTHER TESTS: Stress Test: Date: 07/2017, Results: osh, scanned in [facility]. Negative for ischemia, preserved EF Echo: Date: 07/2017, Results: done at OSH ~last week. Pace is requesting and pt is bringing copy to PULM appt on 08/11. Last echo in [facility] in 04/2015- EF 65%, 1+mitral insuff, unable to eval RVSP Cardiac Cath: Date: 08/2015, Results: OSH, scanned in [facility]- fairly well vascularized PFTs- pending 08/11 CXR- pending 08/11 HBA1C: Hemoglobin A1C (%) Date Value 06/23/2016 8.7 03/18/2016 9.5 ) Patient accompanied by self Case Discussed with Dr Howard OPTIMIZATION STATUS: Patient optimization pending Labs IMPACT Outside medical records PACE (most recent echo) PULM eval and PFTs- sched for 08/11 at SIGNATURE: Marina Cuadra RN PATIENT NAME: Ailyn Méndez DATE: August 09, 2017 TIME: 10:34 AM PAGER/CONTACT #: Addendum 08/13/17 Kirti Cuadra RN Per Pulm... The patient still has anterior chest pain which is chronic in nature. It is not believed to be cardiac in origin. Echocardiogram from 08/05/17 demonstrates an ejection fraction of 67% with normal left ventricular function. Grade 1 diastolic dysfunction ? Pulm eval Assessment: Preoperative pulmonary evaluation prior to surgery for a laparotomy and closure of Small bowel fistula. ? Cardiac evaluation scheduled. ? From a pulmonary standpoint the patient is an ASA III physical status classification. She has obstructive sleep apnea requiring a CPAP of 7 cm of water pressure without oxygen. ? Her spirometry does not demonstrate obstruction, but I suspect she has a mixed obstructive and restrictive process. I would recommend an albuterol nebulizer twice a day post operatively until discharge. Incentive spirometry every 3 hours while awake. Mrs. Méndez has used steroids repeatedly through the past several years for numerous problems. I would recommend a steroid prep at the time of surgery. Solu-Medrol 15 mg IV every 6 hours ?4 doses and stop. Recommend the patient out of the bed in a chair as soon as possible with early ambulation. CXR IMPRESSION: No acute radiographic abnormality. PFTs IMPRESSION: Spirometry shows no obstruction. The reduced FVC suggests restriction. ?Recommend lung volumes if clinically indicated. The diffusing capacity is normal. ECHO done at OSH on 07/08/17 was received by [employer], will be scanned into [employer]. CNOV Observed: 08/09/2017 Status: COMPLETED Source: [place] 9:30 AM [facility] REPOSITORY Office Visit (PSSCMN) AILYN MÉNDEZ ([id number]) 1960 F Date Time Provider Department 08/09/17 9:30 AM [facility] During your visit today, we recorded the following information about you: Pulse Blood pressure Weight Height 69/minute 110/59 93.4 kg 1.702 m Marina Cuadra, RN, RN 08/18/2017 11:07 AM Addendum ANESTHESIA PRE-OPERATIVE ASSESSMENT (PACE) SERVICE DATE: 08/09/2017 SERVICE TIME: 0939 ASSESSMENT AND PLAN: Ailyn Méndez is a 57 year old female scheduled for Exploratory lap per Surgery Request Case in [facility] on 08/19/17. PMH: 1. Intestinal fistula- for above surgery 2. CAD- s/p cabg in 06/2012 and a total of 9 stents in 2012, following cabg. Takes isordil, metoprolol, asa- continuing, and plavix- will be stopped for surgery. Followed by osh training and development project leader and cleared for surgery. Recent stress test in 07/2017 was negative for ischemia and showed preserved EF. +CP and SOB- stable and unchanged per pt. Pt states CP is not related to activity or rest, present since cabg, she described it as nerve pain, it is a different CP when compared to the CP she had prior to cabg and stents. Most recent stress test and LHC is scanned in [facility]. 3. ?Pulmonary HTN- pt had an echo in the last ~week, [facility]ACE requesting. Pt is scheduled to see PULM, CXR and PFTs on 08/11. 4. COPD- prn albuterol- not used often 5. Chronic CHF- normal EF, takes lasix 6.HPL- atorvastatin, fenofibrate 7. GERD- protonix. Hx of gastroparesis, pancreatitis 8. CKD- labs pending 9. DM- glargine and novolog 10. Anxiety depression- wellbutrin, cymbalta, xanax prn 11. Chronic pain- back, abdominal, chest- lyrica, percocet prn [facility]: 4 FC: 2-3 METS: Climb a flight of stairs or walk up a hill (5.50 METs) Patient denies any chest pain or undue shortness of breath with the above physical activity. Patient WILL accept blood products. BLOOD WORK/PRODUCTS ORDERED: Type and Screen , Con ABO HISTORY OF CHRONIC PAIN: Yes - back, abdominal, chest- lyrica, percocet prn PAIN MANAGEMENT OPTIONS: Routine/PRN IV and Final pain management plan will be discussed on the day of surgery. ANESTHETIC OPTIONS: General and Final anesthesia management options will be discussed on day of surgery. PRE-OP PLAN ORDERED: Not Applicable Patient Instructed: ? Nothing to eat or drink after midnight. ? Patient instructed to take the following medications with a sip of water: metoprolol, isordil, protonix, glargine half dose, xanax prn, wellbutrin, cymbalta, lyrica, zofran and percocet prn Vital Signs: BP 110/59 Pulse 69 Ht 170.2 cm (5' 7.01) Wt 93.4 kg (205 lb 14.6 oz) SpO2 95% BMI 32.24 kg/m? BMI 32.24 kg/(m2) Vital signs completed by: IMPACT Weight acquired: per HANDP. Height acquired: per HANDP Airway Exam: MOUTH OPENING/TMJ: Full jaw ROM MICROGNATHIA/OVERBITE: No MALLAMPATI SCORE is CLASS III UPPER LIP BITE TEST: Class I - Lower incisors can bite the upper lip above the black line DENTITION: Chipped, loose, and/or missing - missing on top sides towards the back THYROMENTAL DIST: WNL SHORT NECK: No NECK CIRCUMFERENCE >40 cm: Appears < than 40 CM NECK FLEX: Full ROM NECK EXTENSION: Full ROM AIRWAY HISTORY: No abnormal airway history [employer]KS [employer]WAY DETAIL: N/A DATA: EKG READING: Unconfirmed - Procedure Date : Aug 09 2017 07:25:32 Edit Date : Aug 09 2017 07:29:05 ? Diagnosis:NORMAL SINUS RHYTHM ST AND ANTEROLATERAL T WAVE ABNORMALITY ABNORMAL ECG ? Ventricular Rate : 69 ?BPM OTHER TESTS: Stress Test: Date: 07/2017, Results: osh, scanned in [facility]. Negative for ischemia, preserved EF Echo: Date: 07/2017, Results: done at OSH ~last week. Pace is requesting and pt is bringing copy to PUL appt on 08/11. Last echo in [facility] in 04/2015- EF 65%, 1+mitral insuff, unable to eval RVSP Cardiac Cath: Date: 08/2015, Results: OSH, scanned in [facility]- fairly well vascularized PFTs- pending 08/11 CXR- pending 08/11 HBA1C: Hemoglobin A1C (%) Date Value 06/23/2016 8.7 03/18/2016 9.5 ) Patient accompanied by self Case Discussed with Dr Howard OPTIMIZATION STATUS: Patient optimization pending Labs IMPACT Outside medical records [facility]ACE (most recent echo) PULM eval and PFTs- sched for 08/11 at SIGNATURE: Marina Cuadra RN PATIENT NAME: Ailyn Méndez DATE: August 09, 2017 TIME: 10:34 AM PAGER/CONTACT #: Addendum 08/13/17 Kirti Cuadra RN Per Pulm... The patient still has anterior chest pain which is chronic in nature. It is not believed to be cardiac in origin. Echocardiogram from 08/05/17 demonstrates an ejection fraction of 67% with normal left ventricular function. Grade 1 diastolic dysfunction ? Pulm eval Assessment: Preoperative pulmonary evaluation prior to surgery for a laparotomy and closure of Small bowel fistula. ? Cardiac evaluation scheduled. ? From a pulmonary standpoint the patient is an ASA III physical status classification. She has obstructive sleep apnea requiring a CPAP of 7 cm of water pressure without oxygen. ? Her spirometry does not demonstrate obstruction, but I suspect she has a mixed obstructive and restrictive process. I would recommend an albuterol nebulizer twice a day post operatively until discharge. Incentive spirometry every 3 hours while awake. Mrs. Méndez has used steroids repeatedly through the past several years for numerous problems. I would recommend a steroid prep at the time of surgery. Solu-Medrol 15 mg IV every 6 hours ?4 doses and stop. Recommend the patient out of the bed in a chair as soon as possible with early ambulation. CXR IMPRESSION: No acute radiographic abnormality. PFTs IMPRESSION: Spirometry shows no obstruction. The reduced FVC suggests restriction. ?Recommend lung volumes if clinically indicated. The diffusing capacity is normal. ECHO done at OSH on 07/08/17 was received by [facility], will be scanned into [employer]. Referring Provider: DEAN ROSE [[id number]] Allergies As of Date: 08/09/2017 Noted Allergy Reaction CINNAMON 06/06/2008 10 - Anaphylaxis Comments: Airborne and ingested reactions: throat AND lips swell, SOB DICYCLOMINE 08/18/2013 11 - Vomiting AZULFIDINE (SULFASALAZINE) 10/12/2008 4 - Hives CODEINE 06/06/2008 5 - Intolerance Comments: Stops ileostomy functioning-severe constipation FLAGYL (METRONIDAZOLE HCL) 08/18/2013 4 - Hives FLUZONE HIGH-DOSE 2015- (PF) (F*01/08/2016 12 - Shortness of Breath Comments: Difficulty breathing, chest pain GLUCOPHAGE (METFORMIN HCL) 09/11/2013 8 - GI Upset INFLUENZA VIRUS VACCINES 12/17/2015 12 - Shortness of Breath 14 - Other: See Comments Comments: Chest pain PENICILLINS 02/12/1999 4 - Hives SULFA (SULFONAMIDE ANTIBIOTICS) 10/12/2008 4 - Hives VICTOZA (LIRAGLUTIDE) 07/22/2016 14 - Other: See Comments Comments: Acute pancreatitis Date Reviewed: 08/09/2017 Reviewed by: Daniel (Dandre) DANDRE Weinberg - Fully Assessed Primary Visit Diagnosis:Pre-op evaluation [Z01.818] Prescriptions as of 08/09/2017 Sig: PREGABALIN 50 MG CAPSULE Take 50 mg by mouth twice osiel* ATORVASTATIN 80 MG TABLET Take 1 tablet by mouth daily * URSODIOL 300 MG CAPSULE Take 1 capsule by mouth twice* FENOFIBRATE MICRONIZED 200 MG* Take 1 capsule by mouth daily* Patient not taking: Reported on 08/11/2017 INSULIN ASPART U-100 100 UNI* Inject 20-40 Units subcutaneo* ONDANSETRON HCL 4 MG TABLET Take 4 mg by mouth as needed.* INSULIN GLARGINE (U-100) 100 * Inject 30 units in the mornin* Patient taking differently: Inject 60 units in the mornin* PANTOPRAZOLE 40 MG TABLET,DEL* Take 1 tablet by mouth daily * OXYCODONE-ACETAMINOPHEN 5 MG-* Take 1 tablet by mouth every * COMPOUNDED PRESCRIPTION Convatec - Juanita Cohesive Ost* COMPOUNDED PRESCRIPTION Convatec - Esteem 10 draina* DULOXETINE 60 MG CAPSULE,JOIE* Take 1 capsule by mouth twice* COMPOUNDED PRESCRIPTION PEREZ AND NEPHEW Skin- Prep. V4* ALPRAZOLAM 0.5 MG TABLET Take 0.5 tablets by mouth twi* BUPROPION HCL 75 MG TABLET Take 1 tablet by mouth twice * PEN NEEDLE, DIABETIC 31 GAUGE* Inject 4-6 times daily TRANSCUTANEOUS ELECTRICAL NER* 1 Device as directed. ISOSORBIDE DINITRATE 30 MG TA* Take 1 tablet by mouth three * BLOOD SUGAR DIAGNOSTIC STRIPS TEST BLOOD SUGAR(S)5-6 DAILY.* FUROSEMIDE 20 MG TABLET Take 1 tablet by mouth once d* COMPOUNDED PRESCRIPTION SHARPS IRONER OR PRESSER. Dx: E11.65* COMPOUNDED PRESCRIPTION CONVATEC Michellee Adhesive rem* MAGNESIUM OXIDE 400 MG TABLET Take 1 tablet by mouth three * Patient taking differently: Take 400 mg by mouth twice da* METOPROLOL TARTRATE 50 MG TAB* Take 1.5 tablets by mouth thr* ASPIRIN 81 MG CHEWABLE TABLET Take 81 mg by mouth once alexander* NITROGLYCERIN 0.4 MG SUBLINGU* Dissolve 0.4 mg under the ton* CLOPIDOGREL 75 MG TABLET Take 75 mg by mouth once alexander* Problem List As Of Date 08/09/2017 Noted Resolved Uncontrolled diabetes mellitus (HCC) [E11.65] INVALID FOR*04/04/2015 CAD (coronary artery disease) [I25.10] INVALID FOR* More... S/p total colectomy [Z90.49] INVALID FOR* More... COPD (chronic obstructive pulmonary disease) (H*INVALID FOR* More... Hyperlipidemia [E78.5] INVALID FOR* HTN (hypertension) [I10] INVALID FOR* CHF (congestive heart failure) ([facility]) [I50.9] INVALID FOR* Chest pain at rest [R07.9] INVALID FOR* More... ANKITA on CPAP [G47.33, Z99.89] INVALID FOR* Depression with anxiety [F41.8] INVALID FOR* CKD (chronic kidney disease) stage 3, GFR 30-59*INVALID FOR* Pulmonary hypertension, moderate to severe (HCC*INVALID FOR* Migraine [G43.909] INVALID FOR* Ileostomy in place ([facility]) [Z93.2] INVALID FOR* Hypoxemia [R09.02] INVALID FOR* Open wound of abdominal wall, anterior, complic*INVALID FOR*07/05/2015 Pain in right elbow [M25.521] INVALID FOR*03/24/2016 Diabetes mellitus type 2, uncontrolled, without*INVALID FOR* Low back pain without sciatica [M54.5] INVALID FOR* More... Neuropathic pain of chest [M79.2] INVALID FOR* More... 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 Encounter Status:Closed by MARINA CUADRA on 08/09/17 Chart Close Cosign Accepted by: JIA HOWARD MD[[id number]] Chart Close Cosign Accepted on: WedAug 09, 2017 11:25 AM HISTORY PHYSICAL Observed: 08/09/2017 Status: COMPLETED Source: [place] 8:24 AM [facility] [place] REPOSITORY HNO ID: [id number] Author: Nj Schulz Service: (none) Author Type: Physician Type: HANDP Filed: 08/09/2017 8:55 AM Note Text: HISTORY AND PHYSICAL EXAMINATION (IMPACT) SERVICE DATE: 08/09/2017 SERVICE TIME: 8:24 AM PRIMARY CARE PHYSICIAN: Shannan Mcgrath MD CHIEF COMPLAINT/HISTORY OF PRESENT ILLNESS: Ms. Méndez is a 57 year old female referred to me for preoperative evaluation. My final recommendations will be communicated back to the requesting physician/surgeon by the way of the shared medical record. Referring Surgeon: . Date of Surgery: 08/19/2017. Planned Surgery/Procedure: CLOSE FISTUA SMALL BOWEL TO SMALL BOWEL ADULT Indication for Planned Surgery / Procedure: Ulcerative Colitis Refer to Assessment section for details of any comorbidities. Patient is Able to Perform the Following Physical Activity: Climb a flight of stairs or walk up a hill (5.50 METs) Patient's functional class is II based on self-reported physical activity. Significant Anesthesia Considerations: None. PAST MEDICAL/SURGICAL/FAMILY/SOCIAL HISTORY PAST MEDICAL HISTORY Diagnosis Date - Back pain - CAD (coronary artery disease) 08/18/2013 Dr. Cresencio Stone, [facility] - Chest pain at rest 08/21/2013 Dr. John, Pain Management - CHF (congestive heart failure) ([facility]) 08/21/2013 - Chronic abdominal wound infection - CKD (chronic kidney disease) stage 3, GFR 30-59 ml/min 08/21/2013 - CKD (chronic kidney disease), stage II 08/21/2013 - COPD (chronic obstructive pulmonary disease) ([facility]) 08/18/2013 Dr. Cherelle Lazo, pulmonary - Depression with anxiety 08/21/2013 - Fistula - History of Meniere's disease 1993 surgical treatment - HTN (hypertension) 08/18/2013 - Hyperlipidemia 08/18/2013 - Hypoxemia 12/18/2013 Dr. Cherelle Lazo, pulmonary - Migraine 08/21/2013 - Neck pain - ANKITA on CPAP 08/21/2013 - Pulmonary hypertension, moderate to severe 08/21/2013 - S/P total colectomy 08/18/2013 Ulcerative colitis, ileostomy. - Type II or unspecified type diabetes mellitus without mention of complication, uncontrolled 08/18/2013 - Ulcerative colitis (HCC) PAST SURGICAL HISTORY Procedure Laterality Date - CABG, ARTERY-VEIN, FOUR 2012 CABG, quadruple grafts - DELIVERY ONLY 1988 , low transverse - DEBRIDEMENT:CURRETATE, SKIN SUBCUTANEOUS 08/14/2014 chronic abdominal wound - DECOMPRESS FACIAL NERVE,TOTAL 1993 Facial nerve decomp, 1993, Right side - ILEOSTOMY 1982 - LEFT HEART CATH,PERCUTANEOUS 07/10/2013 Cardiac cath, L heart - LEFT HEART CATH,PERCUTANEOUS 09/04/2015 Cardiac cath, L heart - LOCAL REVISION OF ILESTOMY 2007 - STENT PLACEMENT,PERCUTAN,EACH 08/2012;09/2012; multiple - TOTAL ABDOM HYSTERECTOMY 1990 Hysterectomy, CIRO, bilateral SO FAMILY HISTORY Problem Relation Age of Onset - Cancer Father - Diabetes Mother - Stroke Mother - None Sister - Heart Failure Brother - pancreatitis [Other] [OTHER] Brother SOCIAL HISTORYSocial History Marital status: Spouse name: Years of education: Number of children: 1 Occupational History 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 Disp: Rfl: atorvastatin (LIPITOR) 80 mg tablet Take 1 tablet by mouth daily at bedtime. For cholesterol. Disp: 90 tablet Rfl: 0 insulin aspart (NOVOLOG) 100 unit/mL soln Inject 20-40 Units subcutaneously three times daily with meals. Disp: 1 Vial Rfl: 0 ondansetron (ZOFRAN) 4 mg tablet Take 4 mg by mouth as needed. Disp: 20 tablet Rfl: 0 insulin glargine (BASAGLAR KWIKPEN) 100 unit/mL (3 mL) inpn Inject 30 units in the morning and 40 units at night Indications: DIABETES MELLITUS (Patient taking differently: Inject 60 units in the morning and 70 units at night ) Disp: Rfl: DULoxetine (CYMBALTA) 60 mg capsule Take 1 capsule by mouth twice daily. Disp: 180 capsule Rfl: 3 COMPOUNDED PRESCRIPTION PEREZ AND NEPHEW Skin-Prep. V45.89, V44.2. Use as directed twice a week. Disp: 100 Each Rfl: 6 ALPRAZolam (XANAX) 0.5 mg tablet Take 0.5 tablets by mouth twice daily as needed. Disp: 30 tablet Rfl: 2 insulin needles, DISPOSABLE, (BD INSULIN PEN NEEDLE UF) 31 gauge x 5/16 ndle Inject 4-6 times daily Disp: 200 Each Rfl: 11 TENS Units windy 1 Device as directed. Disp: 1 Device Rfl: 0 isosorbide dinitrate (ISORDIL, SORBITRATE) 30 mg tablet Take 1 tablet by mouth three times daily. Disp: Rfl: blood sugar diagnostic (FREESTYLE LITE STRIPS) test strip TEST BLOOD SUGAR(S)5-6 DAILY. DX: DIABETES. INSULIN: YES Disp: 150 Strip Rfl: 11 furosemide (LASIX) 20 mg tablet Take 1 tablet by mouth once daily. Disp: Rfl: 0 COMPOUNDED PRESCRIPTION SHARPS IRONER OR PRESSER. Dx: E11.65. On insulin. Disp: 1 Each Rfl: 0 COMPOUNDED PRESCRIPTION CONVATEC Allkare Adhesive remover. V45.89, V44.2. Use twice a week as directed. Disp: 100 Each Rfl: 6 magnesium oxide (MAG-OX) 400 mg tablet Take 1 tablet by mouth three times daily. (Patient taking differently: Take 400 mg by mouth twice daily. ) Disp: Rfl: metoprolol tartrate, short acting, 50 mg tablet Take 1.5 tablets by mouth three times daily. Disp: Rfl: 0 aspirin (ASPIRIN CHILDRENS) 81 mg chewable tablet Take 81 mg by mouth once daily. Disp: Rfl: clopidogrel (PLAVIX) 75 mg tablet Take 75 mg by mouth once daily. Disp: Rfl: ursodiol (ACTIGALL) 300 mg capsule Take 1 capsule by mouth twice daily. Disp: 60 capsule Rfl: 1 fenofibrate (LOFIBRA) 200 mg capsule Take 1 capsule by mouth daily with breakfast. Disp: 30 capsule Rfl: [address] (PROTONIX) 40 mg tablet Take 1 tablet by mouth daily before breakfast. Take on empty stomach, 1/2 hr before meal. (Patient not taking: Reported on 08/09/2017 ) Disp: 30 tablet Rfl: 1 oxyCODONE-acetaminophen (PERCOCET) 5-325 mg tablet Take 1 tablet by mouth every 8 hours as needed for Pain. (Patient not taking: Reported on 08/09/2017 ) Disp: 21 tablet Rfl: 0 COMPOUNDED PRESCRIPTION Convatec - Juanita Cohesive Ostomy Seals #[id number]: V45.89; V44.2 Disp: 20 Each Rfl: 11 COMPOUNDED PRESCRIPTION Convatec - Esteem 10 drainable ostomy pouch #[id number]: V45.89; V44.2 Disp: 20 bag Rfl: 11 buPROPion (WELLBUTRIN) 75 mg tablet Take 1 tablet by mouth twice daily. (Patient not taking: Reported on 08/09/2017 ) Disp: 60 tablet Rfl: 6 nitroglycerin sublingual (NITROSTAT) 0.4 mg SL tablet Dissolve 0.4 mg under the tongue every 5 minutes as needed. Disp: Rfl: No current facility-administered medications for this visit. ALLERGIES Allergen Reactions - Cinnamon Anaphylaxis Airborne and ingested reactions: throat AND lips swell, SOB - Dicyclomine Vomiting - Azulfidine [Sulfasa* Hives - Codeine Intolerance Stops ileostomy functioning-severe constipation - Flagyl [Metronidazo* Hives - Fluzone High-Dose 2* Shortness of Breath Difficulty breathing, chest pain - Glucophage [Metform* GI Upset - Influenza Virus Vac* Shortness of Breath, Other: See Comments Chest pain - Penicillins Hives - Sulfa (Sulfonamide * Hives - Victoza [Liraglutid* Other: See Comments Acute pancreatitis REVIEW OF SYSTEMS General: No weight loss, malaise or fevers. 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 No neurological symptoms or problems. Respiratory: COPD, Obstructive Sleep Apnea (on CPAP) Cardiovascular: Hypertension requiring meds, PTCA / PCI: a total of 9 coronary stents following CABG in June 2012 at [facility]; currently on aspirin and plavix; CHF. 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 Endocrine: Diabetes Mellitus on insulin Hematology: Easy bruising / bleeding Oncology: No history of CA metastasis, chemo within 30 days, or radiotherapy within 90 days. No history of oncological symptoms or problems. Psych: Anxiety, Depression Skin: Negative for lesions, rash, and itching. PHYSICAL EXAM VITALS: BP 110/59 Pulse 69 Temp (Src) 98.1 (Oral) Ht 5' 7 (1.70m) Wt 205 lb 14.4 oz (93.4kg) SpO2 95% BMI 32.24 kg/(m2). General: Alert and oriented Skin: Normal color, no rash, no lesions. HEENT: EOM, pupils equal, round and reactive. Cardiovascular: Normal S1 AND S2, no rubs, murmurs or gallops. No JVD. Pulse regular. Lungs: Diminished air entry both lung corral; no wheezes or crackles. Abdomen: Soft, non-tender, no rigidity. Extremities: No deformity, no edema or tenderness, no joint swelling or clubbing. Neurological: Normal cognition and motor skills. Pulses: Carotid and radial pulses normal +2. ASSESSMENT Ms. Méndez is a 57 year old female referred to me for preoperative evaluation. Patient has the following medical comorbidities which might affect the perioperative course: - CAD of the stockbridge vessel. Status post CABG x 3, Surgery date in June 2012;. Status post PCI (with Drug Eluding Stent x 1 implanted on LAD; X 1:Circumflex on 08/2012 followed by [place] to obtuse marginal 1 and !st diagonal on 09/14/2012; she has been on aspirin and plavix since then). Stable with no angina at rest or exertion. Plavix held since yesterday per her Soil Sampler she stays on aspirin. - COPD with moderate Emphysema. 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 Patient is on insulin. Fasting sugar 170-200 - Hypertension, well controlled. - Patient with sleep apnea and uses CPAP. - CKD: Baseline serum creatinine 1.1-1.5 Patient's RCRI (Revised Cardiac Risk Index: CAD/CHF/Stroke or TIA/SCr>2/DM on Insulin/High Risk Surgery) score is 1 and is at low risk for major adverse cardiac events in the perioperative period. Diagnostic tests reviewed for today's visit: PENDING EK08/09/2017: NSR; no Q waves; ST/ T wave inversions I, aVL; V3-V6; no recent EKG available for comparison. Nuclear Stress test negative for ischemia July 2017: from [facility] [place]. [facility]: 2016: Showed adequate revasularization; results reviewed in [facility] PLAN/RECOMMENDATIONS CARDIAC: Patient is at optimal cardiac condition for scheduled surgery / procedure. Continue the following medications uninterrupted in the perioperative period: Aspirin; Metoprolol; Isordil; Lasix PULMONARY: Patient is at increased risk for postoperative pulmonary complications. Suggest the following in the post-operative period: Continue bronchodilator medications, Aggressive bronchopulmonary hygiene, CPAP/BiPAP at home setting (advised patient to bring their CPAP/BiPAP machine/mask), Minimize sedation/opioids as patient has ANKITA and Early ambulation ENDOCRINE: DIABETES: - Initiate [facility] Guidelines for perioperative diabetes management. Check finger stick glucose on the morning of surgery. - Patient has been instructed on Preoperative DM medication management. Patient is optimally prepared for surgery pending labs Patient Instructions: As per patient instructions section. I have discussed the above recommendations with the patient in detail, in luna and lay terms, and provided a written summary of instructions as needed. We have discussed that no surgery is without risk, but that the goal of preoperative assessment is to optimize that risk, and that was clearly understood by the patient. I have given ample opportunity for the patient to ask questions, and answered all questions to their stated satisfaction. SIGNATURE: Nj Schulz MD PATIENT NAME: Ailyn Méndez DATE: August 09, 2017 TIME: 8:24 AM CNOV Observed: 08/09/2017 Status: COMPLETED Source: [place] 8:15 AM [facility] REPOSITORY Office Visit (IMPAMN) AILYN MÉNDEZ ([id number]) 1960 F Date Time Provider Department 08/09/17 8:15 AM NJ SCHULZ During your visit today, we recorded the following information about you: Temperature Pulse Blood pressure Weight 98.1 degrees 69/minute 110/59 93.4 kg Height 1.702 m Sanjay Guerrero 08/09/2017 8:55 AM Signed Ailyn Méndez is a 57 year old female here today for visit in [facility] Referring Surgeon: Dr. Rose Date of Surgery: 08/19/2017 Planned Surgery/Procedure: EXPLORATORY LAPAROTOMY ADULT Allergies have been reviewed and verified. They include the following: Cinnamon; Dicyclomine; Azulfidine [Sulfasalazine]; Codeine; Flagyl [Metronidazole Hcl]; Fluzone High-Dose (Pf) [Flu Vacc Mg0235-25 65yr Up(Pf)]; Glucophage [Metformin Hcl]; Influenza Virus Vaccines; Penicillins; Sulfa (Sulfonamide Antibiotics); Victoza [Liraglutide] Social History Substance Use Topics - Smoking status: Former Smoker Packs/day: 0.50 Years: 20.00 Types: Cigarettes Quit date: 05/06/2012 - Smokeless tobacco: Never Used - Alcohol use No Medications reviewed and updated: Yes Sanjay Schulz MD 08/09/2017 8:55 AM Signed HISTORY AND PHYSICAL EXAMINATION (IMPACT) SERVICE DATE: 08/09/2017 SERVICE TIME: 8:24 AM PRIMARY CARE PHYSICIAN: Shannan Mcgrath MD CHIEF COMPLAINT/HISTORY OF PRESENT ILLNESS: Ms. Méndez is a 57 year old female referred to me for preoperative evaluation. My final recommendations will be communicated back to the requesting physician/surgeon by the way of the shared medical record. Referring Surgeon: . Date of Surgery: 08/19/2017. Planned Surgery/Procedure: CLOSE FISTUA SMALL BOWEL TO SMALL BOWEL ADULT Indication for Planned Surgery / Procedure: Ulcerative Colitis Refer to Assessment section for details of any comorbidities. Patient is Able to Perform the Following Physical Activity: Climb a flight of stairs or walk up a hill (5.50 METs) Patient's functional class is II based on self-reported physical activity. Significant Anesthesia Considerations: None. PAST MEDICAL/SURGICAL/FAMILY/SOCIAL HISTORY PAST MEDICAL HISTORY Diagnosis Date - Back pain - CAD (coronary artery disease) 08/18/2013 Dr. Cresencio Stone, [facility] - Chest pain at rest 08/21/2013 Dr. John, [facility] - CHF (congestive heart failure) (HCC) 08/21/2013 - Chronic abdominal wound infection - CKD (chronic kidney disease) stage 3, GFR 30-59 ml/min 08/21/2013 - CKD (chronic kidney disease), stage II 08/21/2013 - COPD (chronic obstructive pulmonary disease) ([facility]) 08/18/2013 Dr. Cherelle Lazo, pulmonary - Depression with anxiety 08/21/2013 - Fistula - History of Meniere's disease 1993 surgical treatment - HTN (hypertension) 08/18/2013 - Hyperlipidemia 08/18/2013 - Hypoxemia 12/18/2013 Dr. Cherelle Lazo, pulmonary - Migraine 08/21/2013 - Neck pain - ANKITA on CPAP 08/21/2013 - Pulmonary hypertension, moderate to severe 08/21/2013 - S/P total colectomy 08/18/2013 Ulcerative colitis, ileostomy. - Type II or unspecified type diabetes mellitus without mention of complication, uncontrolled 08/18/2013 - Ulcerative colitis ([facility]) PAST SURGICAL HISTORY Procedure Laterality Date - CABG, ARTERY-VEIN, FOUR 2012 CABG, quadruple grafts - DELIVERY ONLY 1988 , low transverse - DEBRIDEMENT:CURRETATE, SKIN SUBCUTANEOUS 08/14/2014 chronic abdominal wound - DECOMPRESS FACIAL NERVE,TOTAL 1993 Facial nerve decomp, 1993, Right side - ILEOSTOMY 1982 - LEFT HEART CATH,PERCUTANEOUS 07/10/2013 Cardiac cath, L heart - LEFT HEART CATH,PERCUTANEOUS 09/04/2015 Cardiac cath, L heart - LOCAL REVISION OF ILESTOMY 2007 - STENT PLACEMENT,PERCUTAN,EACH 08/2012;09/2012; multiple - TOTAL ABDOM HYSTERECTOMY 1990 Hysterectomy, CIRO, bilateral SO FAMILY HISTORY Problem Relation Age of Onset - Cancer Father - Diabetes Mother - Stroke Mother - None Sister - Heart Failure Brother - pancreatitis [Other] [OTHER] Brother SOCIAL HISTORYSocial History Marital status: Spouse name: Years of education: Number of children: 1 Occupational History 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 Disp: Rfl: atorvastatin (LIPITOR) 80 mg tablet Take 1 tablet by mouth daily at bedtime. For cholesterol. Disp: 90 tablet Rfl: 0 insulin aspart (NOVOLOG) 100 unit/mL soln Inject 20-40 Units subcutaneously three times daily with meals. Disp: 1 Vial Rfl: 0 ondansetron (ZOFRAN) 4 mg tablet Take 4 mg by mouth as needed. Disp: 20 tablet Rfl: 0 insulin glargine (BASAGLAR KWIKPEN) 100 unit/mL (3 mL) inpn Inject 30 units in the morning and 40 units at night Indications: DIABETES MELLITUS (Patient taking differently: Inject 60 units in the morning and 70 units at night ) Disp: Rfl: DULoxetine (CYMBALTA) 60 mg capsule Take 1 capsule by mouth twice daily. Disp: 180 capsule Rfl: 3 COMPOUNDED PRESCRIPTION PEREZ AND NEPHEW Skin-Prep. V45.89, V44.2. Use as directed twice a week. Disp: 100 Each Rfl: 6 ALPRAZolam (XANAX) 0.5 mg tablet Take 0.5 tablets by mouth twice daily as needed. Disp: 30 tablet Rfl: 2 insulin needles, DISPOSABLE, (BD INSULIN PEN NEEDLE UF) 31 gauge x 5/16 ndle Inject 4-6 times daily Disp: 200 Each Rfl: 11 TENS Units windy 1 Device as directed. Disp: 1 Device Rfl: 0 isosorbide dinitrate (ISORDIL, SORBITRATE) 30 mg tablet Take 1 tablet by mouth three times daily. Disp: Rfl: blood sugar diagnostic (FREESTYLE LITE STRIPS) test strip TEST BLOOD SUGAR(S)5-6 DAILY. DX: DIABETES. INSULIN: YES Disp: 150 Strip Rfl: 11 furosemide (LASIX) 20 mg tablet Take 1 tablet by mouth once daily. Disp: Rfl: 0 COMPOUNDED PRESCRIPTION SHARPS IRONER OR PRESSER. Dx: E11.65. On insulin. Disp: 1 Each Rfl: 0 COMPOUNDED PRESCRIPTION CONVATEC Allkare Adhesive remover. V45.89, V44.2. Use twice a week as directed. Disp: 100 Each Rfl: 6 magnesium oxide (MAG-OX) 400 mg tablet Take 1 tablet by mouth three times daily. (Patient taking differently: Take 400 mg by mouth twice daily. ) Disp: Rfl: metoprolol tartrate, short acting, 50 mg tablet Take 1.5 tablets by mouth three times daily. Disp: Rfl: 0 aspirin (ASPIRIN CHILDRENS) 81 mg chewable tablet Take 81 mg by mouth once daily. Disp: Rfl: clopidogrel (PLAVIX) 75 mg tablet Take 75 mg by mouth once daily. Disp: Rfl: ursodiol (ACTIGALL) 300 mg capsule Take 1 capsule by mouth twice daily. Disp: 60 capsule Rfl: 1 fenofibrate (LOFIBRA) 200 mg capsule Take 1 capsule by mouth daily with breakfast. Disp: 30 capsule Rfl: [address] (PROTONIX) 40 mg tablet Take 1 tablet by mouth daily before breakfast. Take on empty stomach, 1/2 hr before meal. (Patient not taking: Reported on 08/09/2017 ) Disp: 30 tablet Rfl: 1 oxyCODONE-acetaminophen (PERCOCET) 5-325 mg tablet Take 1 tablet by mouth every 8 hours as needed for Pain. (Patient not taking: Reported on 08/09/2017 ) Disp: 21 tablet Rfl: 0 COMPOUNDED PRESCRIPTION Convatec - Juanita Cohesive Ostomy Seals #[id number]: V45.89; V44.2 Disp: 20 Each Rfl: 11 COMPOUNDED PRESCRIPTION Convatec - Esteem 10 drainable ostomy pouch #[id number]: V45.89; V44.2 Disp: 20 bag Rfl: 11 buPROPion (WELLBUTRIN) 75 mg tablet Take 1 tablet by mouth twice daily. (Patient not taking: Reported on 08/09/2017 ) Disp: 60 tablet Rfl: 6 nitroglycerin sublingual (NITROSTAT) 0.4 mg SL tablet Dissolve 0.4 mg under the tongue every 5 minutes as needed. Disp: Rfl: No current facility-administered medications for this visit. ALLERGIES Allergen Reactions - Cinnamon Anaphylaxis Airborne and ingested reactions: throat AND lips swell, SOB - Dicyclomine Vomiting - Azulfidine [Sulfasa* Hives - Codeine Intolerance Stops ileostomy functioning-severe constipation - Flagyl [Metronidazo* Hives - Fluzone High-Dose 2* Shortness of Breath Difficulty breathing, chest pain - Glucophage [Metform* GI Upset - Influenza Virus Vac* Shortness of Breath, Other: See Comments Chest pain - Penicillins Hives - Sulfa (Sulfonamide * Hives - Victoza [Liraglutid* Other: See Comments Acute pancreatitis REVIEW OF SYSTEMS General: No weight loss, malaise or fevers. 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 No neurological symptoms or problems. Respiratory: COPD, Obstructive Sleep Apnea (on CPAP) Cardiovascular: Hypertension requiring meds, PTCA / PCI: a total of 9 coronary stents following CABG in June 2012 at [facility]; currently on aspirin and plavix; CHF. 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 Endocrine: Diabetes Mellitus on insulin Hematology: Easy bruising / bleeding Oncology: No history of CA metastasis, chemo within 30 days, or radiotherapy within 90 days. No history of oncological symptoms or problems. Psych: Anxiety, Depression Skin: Negative for lesions, rash, and itching. PHYSICAL EXAM VITALS: BP 110/59 Pulse 69 Temp (Src) 98.1 (Oral) Ht 5' 7 (1.70m) Wt 205 lb 14.4 oz (93.4kg) SpO2 95% BMI 32.24 kg/(m2). General: Alert and oriented Skin: Normal color, no rash, no lesions. HEENT: EOM, pupils equal, round and reactive. Cardiovascular: Normal S1 AND S2, no rubs, murmurs or gallops. No JVD. Pulse regular. Lungs: Diminished air entry both lung corral; no wheezes or crackles. Abdomen: Soft, non-tender, no rigidity. Extremities: No deformity, no edema or tenderness, no joint swelling or clubbing. Neurological: Normal cognition and motor skills. Pulses: Carotid and radial pulses normal +2. ASSESSMENT Ms. Méndez is a 57 year old female referred to me for preoperative evaluation. Patient has the following medical comorbidities which might affect the perioperative course: - CAD of the stockbridge vessel. Status post CABG x 3, Surgery date in June 2012;. Status post PCI (with Drug Eluding Stent x 1 implanted on LAD; X 1:Circumflex on 08/2012 followed by [place] to obtuse marginal 1 and !st diagonal on 09/14/2012; she has been on aspirin and plavix since then). Stable with no angina at rest or exertion. Plavix held since yesterday per her Soil Sampler she stays on aspirin. - COPD with moderate Emphysema. 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 Patient is on insulin. Fasting sugar 170-200 - Hypertension, well controlled. - Patient with sleep apnea and uses CPAP. - CKD: Baseline serum creatinine 1.1-1.5 Patient's RCRI (Revised Cardiac Risk Index: CAD/CHF/Stroke or TIA/SCr>2/DM on Insulin/High Risk Surgery) score is 1 and is at low risk for major adverse cardiac events in the perioperative period. Diagnostic tests reviewed for today's visit: PENDING EK08/09/2017: NSR; no Q waves; ST/ T wave inversions I, aVL; V3-V6; no recent EKG available for comparison. Nuclear Stress test negative for ischemia July 2017: from [facility] [place]. [facility]: 2016: Showed adequate revasularization; results reviewed in EPIC PLAN/RECOMMENDATIONS CARDIAC: Patient is at optimal cardiac condition for scheduled surgery / procedure. Continue the following medications uninterrupted in the perioperative period: Aspirin; Metoprolol; Isordil; Lasix PULMONARY: Patient is at increased risk for postoperative pulmonary complications. Suggest the following in the post-operative period: Continue bronchodilator medications, Aggressive bronchopulmonary hygiene, CPAP/BiPAP at home setting (advised patient to bring their CPAP/BiPAP machine/mask), Minimize sedation/opioids as patient has ANKITA and Early ambulation ENDOCRINE: DIABETES: - Initiate [facility] Guidelines for perioperative diabetes management. Check finger stick glucose on the morning of surgery. - Patient has been instructed on Preoperative DM medication management. Patient is optimally prepared for surgery pending labs Patient Instructions: As per patient instructions section. I have discussed the above recommendations with the patient in detail, in luna and lay terms, and provided a written summary of instructions as needed. We have discussed that no surgery is without risk, but that the goal of preoperative assessment is to optimize that risk, and that was clearly understood by the patient. I have given ample opportunity for the patient to ask questions, and answered all questions to their stated satisfaction. SIGNATURE: Nj Schulz MD PATIENT NAME: Ailyn Méndez DATE: August 09, 2017 TIME: 8:24 AM Nj Schulz MD 08/09/2017 8:49 AM Addendum [facility] Patient Instructions for Surgery FOOD INSTRUCTIONS: NO solid food or non-clear liquids for 8 hours prior to the arrival time for your surgery. Unless you are instructed otherwise, you are allowed to drink up to 12 ounces of clear liquids (e.g. water, black tea/coffee, fruit juice without pulp, Sue Drea, etc.) up until 2 hours prior to the arrival time for surgery. MEDICATION INSTRUCTIONS: Prior to Surgery: Do not take the following medications for 7 days prior to surgery: - any NSAID's (e.g. Motrin, Aleve, Arthrotec, Naproxen,etc) - any herbal preparations - Plavix Do not take any Vitamin E / multivitamins for 10-14 days before surgery You are allowed to take Tylenol if needed until the day of surgery. Please bring your inhalers and or CPAP/BiPAP machine and mask when you come for your surgery. Do NOT STOP YOUR ASPIRIN as you have a cardiac/coronary stent. MEDICATION INSTRUCTIONS: Day/Morning of Surgery: The following medications should be taken with sips of water: Lyrica;Aspirin; Isordil; Lasix; Metoprolol; Cymbalta Opiates (percocet, vicodin, MS contin, darvocet, ultram,etc), if needed for pain, can be taken on morning of surgery. Use your inhalers as needed / prescribed on day of surgery. Bring your inhaler with you to the hospital. DIABETES MANAGEMENT INSTRUCTIONS: Eat a usual diet until the day prior to surgery unless indicated by your surgeon/physician. If your blood sugar is below 70 mg/dl at any time, treat with ? cup of apple juice or sue drea, or 4 glucose tabs or 1 tube of oral glucose gel. MEDICATION INSTRUCTIONS: Prior to Surgery: ? Take your usual dose of Novolog ? Take ONLY 55 units of Basaglar night before surgery. MEDICATION INSTRUCTIONS: Day/Morning of Surgery: ? Do not take any injections like symlin, byetta or mealtime insulin. If you have any questions or concerns regarding today's visit please do not hesitate to contact the [facility] center at [phone] or [phone], ext [phone]. Signature: Nj Schulz MD Date: August 09, 2017 Referring Provider: DEAN ROSE [[id number]] Allergies As of Date: 08/09/2017 Noted Allergy Reaction CINNAMON 06/06/2008 10 - Anaphylaxis Comments: Airborne and ingested reactions: throat AND lips swell, SOB DICYCLOMINE 08/18/2013 11 - Vomiting AZULFIDINE (SULFASALAZINE) 10/12/2008 4 - Hives CODEINE 06/06/2008 5 - Intolerance Comments: Stops ileostomy functioning-severe constipation FLAGYL (METRONIDAZOLE HCL) 08/18/2013 4 - Hives FLUZONE HIGH-DOSE 2015- (PF) (F*01/08/2016 12 - Shortness of Breath Comments: Difficulty breathing, chest pain GLUCOPHAGE (METFORMIN HCL) 09/11/2013 8 - GI Upset INFLUENZA VIRUS VACCINES 12/17/2015 12 - Shortness of Breath 14 - Other: See Comments Comments: Chest pain PENICILLINS 02/12/1999 4 - Hives SULFA (SULFONAMIDE ANTIBIOTICS) 10/12/2008 4 - Hives VICTOZA (LIRAGLUTIDE) 07/22/2016 14 - Other: See Comments Comments: Acute pancreatitis Date Reviewed: 08/09/2017 Reviewed by: Sanjay Guerrero - Fully Assessed Primary Visit Diagnosis:Fistula of intestine [K63.2] Other Visit Diagnoses:Pre-operative examination [Z01.818] Chronic congestive heart failure, unspecified heart failure type ([facility]) [I50.9] Essential hypertension [I10] ANKITA on CPAP [G47.33, Z99.89] CKD (chronic kidney disease) stage 3, GFR 30-59 ml/min [N18.3] Pulmonary hypertension, moderate to severe [I27.20] Coronary artery disease involving stockbridge heart with angina pectoris, unspecified vessel or lesion type ([facility]) [I25.119] Uncontrolled type 2 diabetes mellitus without complication, with long-term current use of insulin ([facility]) [E11.65, Z79.4] Chronic bronchitis, unspecified chronic bronchitis type ([facility]) [J42] S/P CABG x 3 [Z95.1] S/P coronary artery stent placement [Z95.5] Prescriptions as of 08/09/2017 Sig: PREGABALIN 50 MG CAPSULE Take 50 mg by mouth twice osiel* ATORVASTATIN 80 MG TABLET Take 1 tablet by mouth daily * INSULIN ASPART U-100 100 UNI* Inject 20-40 Units subcutaneo* ONDANSETRON HCL 4 MG TABLET Take 4 mg by mouth as needed.* INSULIN GLARGINE (U-100) 100 * Inject 30 units in the mornin* Patient taking differently: Inject 60 units in the mornin* DULOXETINE 60 MG CAPSULE,JOIE* Take 1 capsule by mouth twice* COMPOUNDED PRESCRIPTION PEREZ AND NEPHEW Skin- Prep. V4* ALPRAZOLAM 0.5 MG TABLET Take 0.5 tablets by mouth twi* PEN NEEDLE, DIABETIC 31 GAUGE* Inject 4-6 times daily TRANSCUTANEOUS ELECTRICAL NER* 1 Device as directed. ISOSORBIDE DINITRATE 30 MG TA* Take 1 tablet by mouth three * BLOOD SUGAR DIAGNOSTIC STRIPS TEST BLOOD SUGAR(S)5-6 DAILY.* FUROSEMIDE 20 MG TABLET Take 1 tablet by mouth once d* COMPOUNDED PRESCRIPTION SHARPS IRONER OR PRESSER. Dx: E11.65* COMPOUNDED PRESCRIPTION CONVATEC Allkare Adhesive rem* MAGNESIUM OXIDE 400 MG TABLET Take 1 tablet by mouth three * Patient taking differently: Take 400 mg by mouth twice da* METOPROLOL TARTRATE 50 MG TAB* Take 1.5 tablets by mouth thr* ASPIRIN 81 MG CHEWABLE TABLET Take 81 mg by mouth once alexander* CLOPIDOGREL 75 MG TABLET Take 75 mg by mouth once alexander* URSODIOL 300 MG CAPSULE Take 1 capsule by mouth twice* FENOFIBRATE MICRONIZED 200 MG* Take 1 capsule by mouth daily* PANTOPRAZOLE 40 MG TABLET,DEL* Take 1 tablet by mouth daily * Patient not taking: Reported on 08/09/2017 OXYCODONE-ACETAMINOPHEN 5 MG-* Take 1 tablet by mouth every * Patient not taking: Reported on 08/09/2017 COMPOUNDED PRESCRIPTION Convatec - Juanita Cohesive Ost* COMPOUNDED PRESCRIPTION Convatec - Esteem 10 draina* BUPROPION HCL 75 MG TABLET Take 1 tablet by mouth twice * Patient not taking: Reported on 08/09/2017 NITROGLYCERIN 0.4 MG SUBLINGU* Dissolve 0.4 mg under the ton* Medication notes this encounter INSULIN GLARGINE (U-100) 100 UNIT/ML (3 ML) SUBCUTANEOUS PEN >> Sanjay Guerrero 08/09/2017 7:56 AM >> SANJAY GUERRERO WedAug 09, 2017 7:56 AM ALPRAZOLAM 0.5 MG TABLET >> Sanjay Guerrero 08/09/2017 7:54 AM >> ASNJAY GUERRERO WedAug 09, 2017 7:54 AM FUROSEMIDE 20 MG TABLET >> Sanjay Guerrero 08/09/2017 7:55 AM >> SANJAY GUERRERO WedAug 09, 2017 7:55 AM OXYCODONE-ACETAMINOPHEN 5 MG-325 MG TABLET >> Sanjay Guerrero 08/09/2017 7:57 AM >> SANJAY GUERRERO WedAug 09, 2017 7:57 AM BUPROPION HCL 75 MG TABLET >> Sanjay Guerrero 08/09/2017 7:54 AM >> SANJAY GUERRERO WedAug 09, 2017 7:54 AM Problem List As Of Date 08/09/2017 Noted Resolved Uncontrolled diabetes mellitus (HCC) [E11.65] INVALID FOR*04/04/2015 CAD (coronary artery disease) [I25.10] INVALID FOR* More... S/p total colectomy [Z90.49] INVALID FOR* More... COPD (chronic obstructive pulmonary disease) (H*INVALID FOR* More... Hyperlipidemia [E78.5] INVALID FOR* HTN (hypertension) [I10] INVALID FOR* CHF (congestive heart failure) (HCC) [I50.9] INVALID FOR* Chest pain at rest [R07.9] INVALID FOR* More... ANKITA on CPAP [G47.33, Z99.89] INVALID FOR* Depression with anxiety [F41.8] INVALID FOR* CKD (chronic kidney disease) stage 3, GFR 30-59*INVALID FOR* Pulmonary hypertension, moderate to severe (HCC*INVALID FOR* Migraine [G43.909] INVALID FOR* Ileostomy in place (HCC) [Z93.2] INVALID FOR* Hypoxemia [R09.02] INVALID FOR* Open wound of abdominal wall, anterior, complic*INVALID FOR*07/05/2015 Pain in right elbow [M25.521] INVALID FOR*03/24/2016 Diabetes mellitus type 2, uncontrolled, without*INVALID FOR* Low back pain without sciatica [M54.5] INVALID FOR* More... Neuropathic pain of chest [M79.2] INVALID FOR* More... 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 Other instructions from your clinician: [facility] Patient Instructions for Surgery FOOD INSTRUCTIONS: NO solid food or non-clear liquids for 8 hours prior to the arrival time for your surgery. Unless you are instructed otherwise, you are allowed to drink up to 12 ounces of clear liquids (e.g. water, black tea/coffee, fruit juice without pulp, Sue Drea, etc.) up until 2 hours prior to the arrival time for surgery. MEDICATION INSTRUCTIONS: Prior to Surgery: Do not take the following medications for 7 days prior to surgery: - any NSAID's (e.g. Motrin, Aleve, Arthrotec, Naproxen,etc) - any herbal preparations - Plavix Do not take any Vitamin E / multivitamins for 10-14 days before surgery You are allowed to take Tylenol if needed until the day of surgery. Please bring your inhalers and or CPAP/BiPAP machine and mask when you come for your surgery. Do NOT STOP YOUR ASPIRIN as you have a cardiac/coronary stent. MEDICATION INSTRUCTIONS: Day/Morning of Surgery: The following medications should be taken with sips of water: Lyrica;Aspirin; Isordil; Lasix; Metoprolol; Cymbalta Opiates (percocet, vicodin, MS contin, darvocet, ultram,etc), if needed for pain, can be taken on morning of surgery. Use your inhalers as needed / prescribed on day of surgery. Bring your inhaler with you to the hospital. DIABETES MANAGEMENT INSTRUCTIONS: Eat a usual diet until the day prior to surgery unless indicated by your surgeon/physician. If your blood sugar is below 70 mg/dl at any time, treat with ? cup of apple juice or sue drea, or 4 glucose tabs or 1 tube of oral glucose gel. MEDICATION INSTRUCTIONS: Prior to Surgery: ? Take your usual dose of Novolog ? Take ONLY 55 units of Basaglar night before surgery. MEDICATION INSTRUCTIONS: Day/Morning of Surgery: ? Do not take any injections like symlin, byetta or mealtime insulin. If you have any questions or concerns regarding today's visit please do not hesitate to contact the [facility] at [phone] or [phone], ext [phone]. Signature: Nj Schulz MD Date: August 09, 2017 Encounter Status:Closed by NJ SCHULZ MD on 08/09/17 PROGRESS Observed: 08/09/2017 Status: COMPLETED Source: [place] 7:49 AM [facility] [place] REPOSITORY O ID: [id number] Author: Sanjay Guerrero Service: (none) Author Type: (none) Type: Progress Notes Filed: 08/09/2017 8:55 AM Note Text: Ailyn Méndez is a 57 year old female here today for visit in [facility] Referring Surgeon: Dr. Rose Date of Surgery: 08/19/2017 Planned Surgery/Procedure: EXPLORATORY LAPAROTOMY ADULT Allergies have been reviewed and verified. They include the following: Cinnamon; Dicyclomine; Azulfidine [Sulfasalazine]; Codeine; Flagyl [Metronidazole Hcl]; Fluzone High-Dose (Pf) [Flu Vacc [id number] 65yr Up(Pf)]; Glucophage [Metformin Hcl]; Influenza Virus Vaccines; Penicillins; Sulfa (Sulfonamide Antibiotics); Victoza [Liraglutide] Social History Substance Use Topics - Smoking status: Former Smoker Packs/day: 0.50 Years: 20.00 Types: Cigarettes Quit date: 05/06/2012 - Smokeless tobacco: Never Used - Alcohol use No Medications reviewed and updated: Yes Sanjay Guerrero ECG COMPLETE W Observed: 08/09/2017 Status: F Source: [place] INTERPRETATION 7:25 AM [facility] REPOSITORY NAME : AILYN MÉNDEZ PID : [id number] : 1960 Gender : Female Race : ORD : [id number] Procedure Date : Aug 09 2017 07:25:32 Edit Date : Aug 12 2017 14:00:35 Diagnosis:NORMAL SINUS RHYTHM ST & ANTEROLATERAL T WAVE ABNORMALITY ABNORMAL ECG Confirmed by ALEJANDRA VILLALOBOS M.D. ([id number]) on 08/12/2017 1:55:57 PM Ventricular Rate : 69 BPM Atrial Rate : 69 BPM P-R Interval : 170 ms QRS Duration : 92 ms Q-T Interval : 390 ms QTC Calculation(Bezet) : 417 ms P [place] : 43 degrees R [place] : -16 degrees T [place] : 143 degrees Test Reason : Location : 119 : A17 Overread By : ALEJANDRA VILLALOBOS M.D. Edited By : ALEJANDRA VILLALOBOS M.D. Referred By : MARGARITA GARCIA Acquired by : HIGINIO VENTURA ECHOCARDIOGRAM COMPLETE Observed: 08/05/2017 Status: F Source: [place] 5:18 PM [facility] [place] [facility] Cardiovascular Services [address] [place] [address] Echo Complete 08/05/1705 MR#: [id number] Acct: [id number] Name: AILYN MÉNDEZ Rep #: [id number] : 1960 57 From: Thai Wolf MD Attending Dr: Davide Baca MD Status: REG CLI Ordering Dr: Davide Baca MD Date: 08/05/17 Location: [facility] Sex: F C Admitted: Reason For Study: DYSPNEA/SOB Procedure This was a 2D Doppler, Color Flow transthoracic echocardiogram. Exam performed in department. Left Ventricle Normal size and thickness. The estimated ejection fraction is 65 %. Stage 1 diastolic dysfunction. No regional wall motion abnormalities noted. Right Ventricle Normal size and thickness. Normal systolic function. Atria Normal left atrium. Normal right atrium. Normal atrial septum. Mitral Valve Mild focal mitral valve thickening. Tricuspid Valve Normal tricuspid valve. Unable to estimate RV systolic pressure due to inadequate jet, pulmonary artery pressure probably normal. Aortic Valve Normal aortic valve. Trisinus/trileaflet aortic valve. Pulmonic Valve The pulmonic valve is not well visualized. Great Vessels Normal aortic root. Normal arch. Normal inferior vena cava. Inferior vena cava collapse with sniff. Pericardium/Pleural No pericardial effusion. MMode/2D Measurements AND Calculations LVIDd: 4.6 cm IVSd: 1.2 cm Ao root diam: 2.9 cm LVIDs: 3.1 cm LVPWd: 0.99 cm RVDd: 2.7 cm FS: 32.7 % LAV(MOD-bp): 32.7 ml EDV(MOD-sp4): 63.7 ml SV(MOD-sp4): 39.7 ml LAV(MOD-bp) Indexed: 16.2 ml/m2 ESV(MOD-sp4): 24.0 ml LAV(MOD-sp2): 36.6 ml EF(MOD-sp4): 62.3 % LAV(MOD-sp4): 25.2 ml LA A4 area: 11.6 cm2 RA A4 area: 10.1 cm2 Time Measurements MV dec time: 0.28 sec Doppler Measurements AND Calculations MV E max madelin: 81.4 cm/sec Lat Peak E' Madelin: 9.1 cm/sec Med Peak E' Madelin: 5.0 cm/sec MV A max madelin: 103.0 cm/sec E/E' lat: 8.9 E/E' med: 16.1 MV E/A: 0.79 Ao V2 max: 166.9 cm/sec LV V1 max: 121.3 cm/sec PA V2 max: 140.4 cm/sec Ao max P.1 mmHg LV V1 max P.9 mmHg PI end-d madelin: 117.9 cm/sec Interpretation Summary The estimated ejection fraction is 65 %. Stage 1 diastolic dysfunction. Unable to estimate RV systolic pressure due to inadequate jet, pulmonary artery pressure probably normal. Compared to echo report dated 04/18/2015, no appreciable changes noted. Ordering Physician: Davide Baca Referring Physician: KAITLIN CAMPBELL Performed By: Bree Yates RDCS 08/05/171716 Date Thai Wolf MD CC: Davide Baca MD; Shannan Mcgrath MD Date Dictated: 08/05/17904 Date Transcribed: 08/05/171716 Jboss Developer: Signed ENDOCRINOLOGY VISIT Observed: 07/26/2017 Status: F Source: [place] REPORT 10:35 AM [facility] [place] [facility] [address] [place] [address]. [address] [place] [address] OFFICE VISIT Date of Service: 07/26/17 MR#: [id number] Acct: [id number] Name: AILYN MÉNDEZ Rep #: [id number] : 1960 Provider: Jane Saez NP Age/Sex: 57/F [place] [facility] [place]: Signed HPI History of present illness Weight and fatigue symptoms: Denies snoring Cardiopulmonary symptoms: Reports chest pain at rest; denies dyspnea on exertion, lightheadedness or myalgias GI symptoms: Denies constipation, diarrhea, nausea/dyspepsia or vomiting Other symptoms: Denies blurry vision or change in vision Intake Vital Signs07/26/17 Height 5 ft 7 in 07/26/17 Weight: 206 lb 6 oz 07/26/17 Body Mass Index (BMI) 32.3 07/26/17 Blood Pressure 139/75 07/26/17 Blood Pressure Location Lt popliteal 07/26/17 Blood Pressure Position Sitting Intake Visit Reasons: Diabetes follow-up 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: No Accompanied by: Friend Is patient in pain?: No Allergies cinnamon [Cinnamon] Allergy (Verified 07/26/17 08:55) Anaphylaxis Influenza Virus Vaccines Allergy (Verified 07/26/17 08:55) Shortness of breath liraglutide [From Victoza] Allergy (Verified 07/26/17 08:55) Anaphylaxis metronidazole [From Flagyl] Allergy (Verified 07/26/17 08:55) Hives Metronidazole HCl [From Flagyl] Allergy (Verified 07/26/17 08:55) Hives Penicillins Allergy (Verified 07/26/17 08:55) Hives Sulfa (Sulfonamide Antibiotics) Allergy (Verified 07/26/17 08:55) Hives ciprofloxacin [From Cipro] Adverse Reaction (Verified 07/26/17 08:55) Nausea codeine Adverse Reaction (Verified 07/26/17 08:55) Stops Ileostomy dicyclomine HCl [From Bentyl] Adverse Reaction (Verified 07/26/17 08:55) Nausea metformin HCl [From Glucophage] Adverse Reaction (Verified 07/26/17 08:55) Nausea Sklhejb-Ulp-Zhw Reductase Inhibitor Adverse Reaction (Verified 07/26/17 08:55) Nausea/joints ache Medications Aspirin [Aspirin, Baby] 81 mg PO DAILY@0800 01/21/15 [History Confirmed 07/26/17] Atorvastatin Calcium [Lipitor] 80 mg PO QHS 01/21/15 [History Confirmed 07/26/17] Clopidogrel Bisulfate [Plavix] 75 mg PO DAILY 01/21/15 [History Confirmed 07/26/17] Magnesium Oxide [Mag-Ox 400] 400 mg PO BID 01/21/15 [History Confirmed 07/26/17] Metoprolol Tartrate [Lopressor (beta esha)] 75 mg PO TID 01/21/15 [History Confirmed 07/26/17] Isosorbide DN [Isordil] 30 mg PO TID 09/03/16 [History Confirmed 07/26/17] Ondansetron HCl [Zofran] 4 mg PO Q8H PRN PRN #20 tab 09/05/16 [Rx Confirmed 07/26/17] Baclofen 10 mg PO QHS 11/24/16 [History Confirmed 07/26/17] Calcium Carbonate [Calcium] 600 mg PO BID 11/24/16 [History Confirmed 07/26/17] Cholecalciferol (Vitamin D3) [Vitamin D3] 2,000 unit PO DAILY 11/24/16 [History Confirmed 07/26/17] loperamide 2 mg tablet 2 mg PO 4X/DAY PRN PRN tab 02/12/17 [History Confirmed 07/26/17] omeprazole 20 mg capsule,delayed release 20 mg PO DAILY 02/12/17 [History Confirmed 07/26/17] triamcinolone acetonide 0.1 % topical cream 1 applic TOPICAL BID PRN PRN 02/12/17 [History Confirmed 07/26/17] albuterol sulfate HFA 90 mcg/actuation aerosol inhaler 1 puff INHALATION Q6H PRN #1 inh 03/10/17 [Rx Confirmed 07/26/17] insulin aspart U-100 100 unit/mL subcutaneous pen 25 - 35 units SC TIDCM ml 03/23/17 [History Confirmed 07/26/17] miconazole nitrate 2 % topical powder 1 applic TOPICAL DAILY 03/23/17 [History Confirmed 07/26/17] tramadol 50 mg tablet 50 mg PO BID PRN PRN tab 05/05/17 [History Confirmed 07/26/17] Hydrocortisone 1 applic TOPICAL BID 06/02/17 [History Confirmed 07/26/17] nitroglycerin 0.4 mg sublingual tablet 0.4 mg SUBLINGUAL Q5M PRN #25 tab 06/08/17 [Rx Confirmed 07/26/17] pregabalin 50 mg capsule 50 mg PO BID cap 06/08/17 [History Confirmed 07/26/17] lorazepam 0.5 mg tablet 0.5 mg PO QHS PRN #30 tab 06/11/17 [Rx Confirmed 07/26/17] Duloxetine Hcl [Cymbalta] 20 mg PO BID 06/29/17 [History Confirmed 07/26/17] buprenorphine 5 mcg/hour weekly transdermal patch 1 patch TRANSDERMAL QWEEK 07/02/17 [History Confirmed 07/26/17] Furosemide [Lasix] 40 mg PO DAILY 07/07/17 [History Confirmed 07/26/17] insulin glargine (U-100) 100 unit/mL (3 mL) subcutaneous pen See Label Instructions SC BID #45 ml 07/19/17 [Rx Confirmed 05/21/18] pen needle, diabetic 31 gauge x 5/16 See Dose Instructions .ROUTE .MEDSUPPLY #180 ea 07/19/17 [Rx Confirmed 07/26/17] Is last menstrual period known: No Post menopausal: Yes Patient : No Nurse's Note: blood sugars : low : 148 high : 415 [facility] Medical History CAD (coronary artery disease) (Chronic) Hyperlipidemia (Chronic) Benign essential HTN (Chronic) DM2 (diabetes mellitus, type 2) (Chronic) Hx of coronary artery disease (Chronic) History of coronary artery stent placement (Chronic 2012) Chronic renal insufficiency (Acute) Menieres disease (Acute) Sleep apnea (Acute) Syncope (Acute) Ulcerative colitis (Acute) Vertigo (Acute) Surgical History S/P CABG (coronary artery bypass graft) (Chronic 2012) H/O colectomy (Acute) H/O total hysterectomy (Acute) gallbdder removal (Acute) ileostomy (Acute) left thumb surgery (Acute) lysis of adhesion (Acute) vestibular nerve surgery for Meniere's (Acute) Family History Mother CVA (cerebral vascular accident) Diabetes Brother Heart disease of CAD at 65 Myocardial infarction Pancreatitis Father Cancer lymphomia Lymphoma Grandmother Myocardial infarction of CT in her 70s Sister COPD (chronic obstructive pulmonary disease) Social History Smoking Status: Heavy Smoker (>10/day) how long ago did patient quit smokin, 0.5p/d second hand exposure: Yes alcohol intake: never substance use type: does not use caffeine: Yes Type: coffee eating out: 1-3 times/week what type of physical activity do you participate in: none seatbelt use: always do you feel safe at home: Yes ROS Const Constitutional: No anorexia, body ache, chills, fatigue, fever(s), frequent falls, decreased energy, malaise, night sweats, weakness, weight change, sleep problems, abnormal sleep pattern, change in appetite, other, headache(s), snoring or excessive sweating Eyes Eyes: No blurry vision, change in vision, double vision, discharge, dry eyes, bulging eyes, floaters, visual disturbances, eye pain, light sensitivity, spots in vision, tunnel vision or other ENT ENT: No abnormal hearing, ear pain, ear discharge, ear pressure, hearing loss, tinnitus, dizziness/vertigo, balance problems, nosebleed/epistaxis, nasal congestion, nasal obstruction, nose pain, sinus pressure, sinus pain, nasal discharge, post nasal drip, headache(s), facial pain, dental pain, dry mouth, bad breath, hoarseness, lip swelling, mouth lesions, mouth pain, sore throat, tongue swelling, throat swelling, other, difficulty swallowing or neck pain Resp Respiratory: Positive for shortness of breath; no cough, change in phlegm color, chest congestion, excessive phlegm production, hemoptysis, pain on inspiration, pain with cough, snoring, stridor, wheezing or other Cardio Cardiology: Positive for chest pain at rest, chest pain with exertion, shortness of breath and generalized swelling; no leg pain with exertion, excessive sweating, dyspnea on exertion, irregular heart rhythm, lightheadedness, orthopnea, radiating jaw, neck or arm pain, fast heart rate, slow heart rate, palpitations or other Gastro GI: Positive for abdominal pain and heartburn; no belching, bloating, change in bowel habits, change in stool character, coffee ground emesis, constipation, cramping, diarrhea, difficulty swallowing, feeling full early, excessive flatus, incontinent of stools, Vomiting blood/hematemesis, blood in stool, loose stools, Black,tarry stools, nausea/dyspepsia, pain with swallowing, vomiting or other Genitourinary-Female: No difficulty urinating, burning urination, painful urination, urinary incontinence, urinary frequency, urinary urgency, urinary hesitancy, urinary retention, blood in urine, Frequent nighttime urination/ nocturia, post void dribbling, suprapubic fullness, side pain, sexual problems, genital lesions, genital itching, hot flashes, abnormal periods, abnormal vaginal bleeding, absent period, painful periods, light periods, heavy periods, difficulty getting , painful intercourse, pelvic pain, vaginal dryness, vaginal odor, Vaginal Itching or other Musc Musculoskeletal: No abnormal walking, joint pain, back pain, deformity, joint swelling, limited range of motion, loss of height, muscle cramps, muscle weakness, decreased muscle mass, body aches, neck pain, numbness, radiating pain into limb, stiffness, tingling or other Skin Skin: Positive for wounds (abdominal wound); no acne, hair loss, change in hair, nail changes, boil, change in skin color, dry skin, redness, excessive hair growth, yellowing of the skin, lesions, itching, rash, skin pain, skin ulcer, sores, skin swelling or other Breast Breast: No other Neuro Neurology: No frequent falls, weakness, visual disturbances, abnormal hearing, headache(s), abnormal walking, numbness or tingling Psych Psychiatric: No abnormal sleep pattern, No change in appetite Endo Endocrine: No fatigue, other or excessive sweating Aller/Imm Allergy/Immunologic: No lip swelling, tongue swelling, throat swelling, wheezing or itchy eyes Assessment AND Plan 1. Type 2 diabetes mellitus with complication, with long-term current use of insulin E11.8; Z79.4 Plan Will switch to U-500 after surgery. Increase basaglar to 80 bid. Increase meal insulin to 40 tid. Plan Detail Additional Comments 1. Please schedule follow up in 3 months. 2. Lab work one week before appointment. 3. Discussed importance of regular exercise and recommend starting or continuing a regular exercise program for good health. 4. The patient was encouraged to lose weight for good health 5. The importance of monitoring blood sugar regularly was reviewed. 6. The importance of monitoring the HBA1c level regularly was reviewed. 7. The importance of prper foot care and regularly checking feet to prevent sores and loss of limbs was reviewed. 8. The importance of keeping BP at or below 130/80 to prevent stroke, heart attacks, kidney failure, blindness was reviewed. Spent approximately 30 minutes with patient with over 50% of time spent in discussion and counseling regarding medication adjustment, symptoms and treatment of hypoglycemia, diet adherence, and checking BG before driving. 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 Time Spent (min) 30 07/26/17 1035 <Electronically signed by Jane LEOS> Date Jane Fisher Signature: Date (if applicable) CC: HOSP Observed: 07/23/2017 Status: COMPLETED Source: [place] 12:00 AM [facility] REPOSITORY Patient Update (PASCUAL) AILYN MÉNDEZ ([id number]) 1960 F Date Time Provider Department 07/23/17 DEAN ROSE During your visit today, we recorded the following information about you: Allergies As of Date: 07/23/2017 Noted Allergy Reaction CINNAMON 06/06/2008 10 - Anaphylaxis Comments: Airborne and ingested reactions: throat AND lips swell, SOB DICYCLOMINE 08/18/2013 11 - Vomiting AZULFIDINE (SULFASALAZINE) 10/12/2008 4 - Hives CODEINE 06/06/2008 5 - Intolerance Comments: Stops ileostomy functioning-severe constipation FLAGYL (METRONIDAZOLE HCL) 08/18/2013 4 - Hives FLUZONE HIGH-DOSE (PF) (F*01/08/2016 12 - Shortness of Breath Comments: Difficulty breathing, chest pain GLUCOPHAGE (METFORMIN HCL) 09/11/2013 8 - GI Upset INFLUENZA VIRUS VACCINES 12/17/2015 12 - Shortness of Breath 14 - Other: See Comments Comments: Chest pain PENICILLINS 02/12/1999 4 - Hives SULFA (SULFONAMIDE ANTIBIOTICS) 10/12/2008 4 - Hives VICTOZA (LIRAGLUTIDE) 07/22/2016 14 - Other: See Comments Comments: Acute pancreatitis Date Reviewed: 05/24/2017 Reviewed by: Anastacio (Juvencio) JUVENCIO Acharya - Fully Assessed Primary Visit Diagnosis:Fistula of intestine [K63.2] Order(s):SURGICAL REQUEST - ELECTIVE [1284695] Order #: [id number]: 1 [place] WHAT TO EXPECT DURING YOUR HOSPITAL STAY [[id number]] Order #: [id number]: 1 CBC [SQCBC] Order #: [id number] FUTURE COMP METABOLIC PANEL [SQCMP] Order #: [id number] FUTURE CONFIRM BLOOD TYPE [SQCONABO] Order #: [id number] FUTURE TYPE + SCREEN,30 DAY [[id number]] Order #: [id number] FUTURE ECG COMPLETE W INTERPRETATION [ECG01] Order #: [id number] FUTURE REFER FOR ADMIT INTERVIEW [[id number]] Order #: [id number] HANDP FOR SURGERY [[id number]] Order #: [id number] CONSULT TO PATIENT EDUCATION [[id number]] Order #: [id number]: 1 CONSULT TO ANESTHESIOLOGY [900] Order #: [id number]: 1 CONSULT TO INT MED-IMPACT [[id number]] Order #: [id number]: 1 CONSULT TO PULMONARY MEDICINE [[id number]] Order #: [id number]: 1 Prescriptions as of 07/23/2017 Sig: PREGABALIN 50 MG CAPSULE Take 50 mg by mouth twice osiel* ATORVASTATIN 80 MG TABLET Take 1 tablet by mouth daily * URSODIOL 300 MG CAPSULE Take 1 capsule by mouth twice* FENOFIBRATE MICRONIZED 200 MG* Take 1 capsule by mouth daily* INSULIN ASPART U-100 100 UNI* Inject 20-40 Units subcutaneo* ONDANSETRON HCL 4 MG TABLET Take 1 tablet by mouth every * INSULIN GLARGINE (U-100) 100 * Inject 30 units in the mornin* PANTOPRAZOLE 40 MG TABLET,DEL* Take 1 tablet by mouth daily * OXYCODONE-ACETAMINOPHEN 5 MG-* Take 1 tablet by mouth every * COMPOUNDED PRESCRIPTION Convatec - Juanita Cohesive Ost* COMPOUNDED PRESCRIPTION Convatec - Esteem 10 draina* DULOXETINE 60 MG CAPSULE,JOIE* Take 1 capsule by mouth twice* COMPOUNDED PRESCRIPTION PEREZ AND NEPHEW Skin- Prep. V4* ALPRAZOLAM 0.5 MG TABLET Take 0.5 tablets by mouth twi* BUPROPION HCL 75 MG TABLET Take 1 tablet by mouth twice * Patient taking differently: Take 100 mg by mouth twice da* PEN NEEDLE, DIABETIC 31 GAUGE* Inject 4-6 times daily TRANSCUTANEOUS ELECTRICAL NER* 1 Device as directed. ISOSORBIDE DINITRATE 30 MG TA* Take 1 tablet by mouth three * BLOOD SUGAR DIAGNOSTIC STRIPS TEST BLOOD SUGAR(S)5-6 DAILY.* FUROSEMIDE 20 MG TABLET Take 1 tablet by mouth once d* COMPOUNDED PRESCRIPTION SHARPS IRONER OR PRESSER. Dx: E11.65* COMPOUNDED PRESCRIPTION CONVATEC Allkare Adhesive rem* MAGNESIUM OXIDE 400 MG TABLET Take 1 tablet by mouth three * METOPROLOL TARTRATE 50 MG TAB* Take 1.5 tablets by mouth thr* ASPIRIN 81 MG CHEWABLE TABLET Take 81 mg by mouth once alexander* NITROGLYCERIN 0.4 MG SUBLINGU* Dissolve 0.4 mg under the ton* CLOPIDOGREL 75 MG TABLET Take 75 mg by mouth once alexander* Problem List As Of Date 07/23/2017 Noted Resolved Uncontrolled diabetes mellitus (HCC) [E11.65] INVALID FOR*04/04/2015 CAD (coronary artery disease) [I25.10] INVALID FOR* More... S/p total colectomy [Z90.49] INVALID FOR* More... COPD (chronic obstructive pulmonary disease) (H*INVALID FOR* More... Hyperlipidemia [E78.5] INVALID FOR* HTN (hypertension) [I10] INVALID FOR* CHF (congestive heart failure) ([facility]) [I50.9] INVALID FOR* Chest pain at rest [R07.9] INVALID FOR* More... ANKITA on CPAP [G47.33, Z99.89] INVALID FOR* Depression with anxiety [F41.8] INVALID FOR* CKD (chronic kidney disease) stage 3, GFR 30-59*INVALID FOR* Pulmonary hypertension, moderate to severe (HCC*INVALID FOR* Migraine [G43.909] INVALID FOR* Ileostomy in place ([facility]) [Z93.2] INVALID FOR* Hypoxemia [R09.02] INVALID FOR* Open wound of abdominal wall, anterior, complic*INVALID FOR*07/05/2015 Pain in right elbow [M25.521] INVALID FOR*03/24/2016 Diabetes mellitus type 2, uncontrolled, without*INVALID FOR* Low back pain without sciatica [M54.5] INVALID FOR* More... Neuropathic pain of chest [M79.2] INVALID FOR* More... 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 Follow-up and Disposition History Recorded Encounter Status:Closed by DEAN ROSE MD, FACS on 07/29/17 HOSP Observed: 07/23/2017 Status: COMPLETED Source: [place] 12:00 AM [facility] REPOSITORY Patient:Ailyn Méndez MRN: <[id number]> Height:5' 7(1.702 m) Weight:206 lb (93.441 kg) Outpatient Medications as of 08/19/17: LORazepam (ATIVAN) 1 mg tablet buprenorphine (BUTRANS) 5 mcg/hour pregabalin (LYRICA) 50 mg capsule atorvastatin (LIPITOR) 80 mg tablet insulin aspart (NOVOLOG) 100 unit/mL soln ondansetron (ZOFRAN) 4 mg tablet insulin glargine (BASAGLAR KWIKPEN) 100 unit/mL (3 mL) inpn oxyCODONE-acetaminophen (PERCOCET) 5-325 mg tablet COMPOUNDED PRESCRIPTION COMPOUNDED PRESCRIPTION DULoxetine (CYMBALTA) 60 mg capsule COMPOUNDED PRESCRIPTION insulin needles, DISPOSABLE, (BD INSULIN PEN NEEDLE UF) 31 gauge x 5/16 ndle TENS Units windy isosorbide dinitrate (ISORDIL, SORBITRATE) 30 mg tablet blood sugar diagnostic (FREESTYLE LITE STRIPS) test strip furosemide (LASIX) 20 mg tablet COMPOUNDED PRESCRIPTION COMPOUNDED PRESCRIPTION magnesium oxide (MAG-OX) 400 mg tablet metoprolol tartrate, short acting, 50 mg tablet aspirin (ASPIRIN CHILDRENS) 81 mg chewable tablet nitroglycerin sublingual (NITROSTAT) 0.4 mg SL tablet clopidogrel (PLAVIX) 75 mg tablet Admission/Clinic Administered Medications as of 08/19/17: lidocaine 10 mg/mL (1 %) 1-2 mg injection (XYLOCAINE) lactated ringers infusion clindamycin 600 mg in D5W 50 mL (CLEOCIN) aztreonam 1 g in D5W 100 mL MB+ (AZACTAM) alvimopan 12 mg cap(s) (ENTEREG) dextrose 40 % 15 g glucagon 1 mg injection (GLUCAGEN) dextrose 50% in water 25 mL syringe Problem List: CAD (coronary artery disease) [I25.10] S/P total colectomy [Z90.49] COPD (chronic obstructive pulmonary disease) ([facility]) [J44.9] Hyperlipidemia [E78.5] HTN (hypertension) [I10] CHF (congestive heart failure) ([facility]) [I50.9] Chest pain at rest [R07.9] ANKITA on CPAP [G47.33, Z99.89] Depression with anxiety [F41.8] CKD (chronic kidney disease) stage 3, GFR 30-59 ml/min [N18.3] Pulmonary hypertension, moderate to severe [I27.20] Migraine [G43.909] Ileostomy in place ([facility]) [Z93.2] Hypoxemia [R09.02] Diabetes mellitus type 2, uncontrolled, without complications ([facility]) [E11.65] Low back pain without sciatica [M54.5] Neuropathic pain of chest [M79.2] Psoriasis [L40.9] Lower abdominal pain [R10.30] Chronic bilateral low back pain with right-sided sciatica [M54.41, G89.29] Lumbar facet arthropathy ([facility]) [M46.96] BMI 32.0-32.9,adult [Z68.32] Fistula of intestine [K63.2] Crohn's colitis, with fistula ([facility]) [K50.113] Allergies: Cinnamon Dicyclomine Azulfidine [Sulfasalazine] Codeine Flagyl [Metronidazole Hcl] Fluzone High-Dose 2015- (Pf) [Flu Vacc [id number] 65yr Up(Pf)] Glucophage [Metformin Hcl] Influenza Virus Vaccines Penicillins Sulfa (Sulfonamide Antibiotics) Victoza [Liraglutide] Date Verified: 08/19/17 Lab Values Lab Value Units Date High Low POTA* 4.6 mmol/L 08/09/2017 5.1 3.7 JOSE* 44.1 % 08/09/2017 46.0 36.0 Progress Notes ([facility]IN IMPACT): Sanjay Guerrero 08/09/2017 8:55 AM Signed Ailyn Méndez is a 57 year old female here today for visit in [facility] Referring Surgeon: Dr. Rose Date of Surgery: 08/19/2017 Planned Surgery/Procedure: EXPLORATORY LAPAROTOMY ADULT Allergies have been reviewed and verified. They include the following: Cinnamon; Dicyclomine; Azulfidine [Sulfasalazine]; Codeine; Flagyl [Metronidazole Hcl]; Fluzone High-Dose (Pf) [Flu Vacc [id number] 65yr Up(Pf)]; Glucophage [Metformin Hcl]; Influenza Virus Vaccines; Penicillins; Sulfa (Sulfonamide Antibiotics); Victoza [Liraglutide] Social History Substance Use Topics - Smoking status: Former Smoker Packs/day: 0.50 Years: 20.00 Types: Cigarettes Quit date: 05/06/2012 - Smokeless tobacco: Never Used - Alcohol use No Medications reviewed and updated: Yes Sanjay Schulz MD 08/09/2017 8:55 AM Signed HISTORY AND PHYSICAL EXAMINATION (IMPACT) SERVICE DATE: 08/09/2017 SERVICE TIME: 8:24 AM PRIMARY CARE PHYSICIAN: Shannan Mcgrath MD CHIEF COMPLAINT/HISTORY OF PRESENT ILLNESS: Ms. Méndez is a 57 year old female referred to me for preoperative evaluation. My final recommendations will be communicated back to the requesting physician/surgeon by the way of the shared medical record. Referring Surgeon: . Date of Surgery: 08/19/2017. Planned Surgery/Procedure: CLOSE FISTUA SMALL BOWEL TO SMALL BOWEL ADULT Indication for Planned Surgery / Procedure: Ulcerative Colitis Refer to Assessment section for details of any comorbidities. Patient is Able to Perform the Following Physical Activity: Climb a flight of stairs or walk up a hill (5.50 METs) Patient's functional class is II based on self-reported physical activity. Significant Anesthesia Considerations: None. PAST MEDICAL/SURGICAL/FAMILY/SOCIAL HISTORY PAST MEDICAL HISTORY Diagnosis Date - Back pain - CAD (coronary artery disease) 08/18/2013 Dr. Cresencio Stone, [facility] - Chest pain at rest 08/21/2013 Dr. John, Pain Management - CHF (congestive heart failure) (HCC) 08/21/2013 - Chronic abdominal wound infection - CKD (chronic kidney disease) stage 3, GFR 30-59 ml/min 08/21/2013 - CKD (chronic kidney disease), stage II 08/21/2013 - COPD (chronic obstructive pulmonary disease) (HCC) 08/18/2013 Dr. Cherelle Lazo, pulmonary - Depression with anxiety 08/21/2013 - Fistula - History of Meniere's disease 1993 surgical treatment - HTN (hypertension) 08/18/2013 - Hyperlipidemia 08/18/2013 - Hypoxemia 12/18/2013 Dr. Cherelle Lazo, pulmonary - Migraine 08/21/2013 - Neck pain - ANKITA on CPAP 08/21/2013 - Pulmonary hypertension, moderate to severe 08/21/2013 - S/P total colectomy 08/18/2013 Ulcerative colitis, ileostomy. - Type II or unspecified type diabetes mellitus without mention of complication, uncontrolled 08/18/2013 - Ulcerative colitis (HCC) PAST SURGICAL HISTORY Procedure Laterality Date - CABG, ARTERY-VEIN, FOUR 2012 CABG, quadruple grafts - DELIVERY ONLY 1988 , low transverse - DEBRIDEMENT:CURRETATE, SKIN SUBCUTANEOUS 08/14/2014 chronic abdominal wound - DECOMPRESS FACIAL NERVE,TOTAL 1993 Facial nerve decomp, 1993, Right side - ILEOSTOMY 1982 - LEFT HEART CATH,PERCUTANEOUS 07/10/2013 Cardiac cath, L heart - LEFT HEART CATH,PERCUTANEOUS 09/04/2015 Cardiac cath, L heart - LOCAL REVISION OF ILESTOMY 2007 - STENT PLACEMENT,PERCUTAN,EACH 08/2012;09/2012; multiple - TOTAL ABDOM HYSTERECTOMY 1990 Hysterectomy, CIRO, bilateral SO FAMILY HISTORY Problem Relation Age of Onset - Cancer Father - Diabetes Mother - Stroke Mother - None Sister - Heart Failure Brother - pancreatitis [Other] [OTHER] Brother SOCIAL HISTORYSocial History Marital status: Spouse name: Years of education: Number of children: 1 Occupational History 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 Disp: Rfl: atorvastatin (LIPITOR) 80 mg tablet Take 1 tablet by mouth daily at bedtime. For cholesterol. Disp: 90 tablet Rfl: 0 insulin aspart (NOVOLOG) 100 unit/mL soln Inject 20-40 Units subcutaneously three times daily with meals. Disp: 1 Vial Rfl: 0 ondansetron (ZOFRAN) 4 mg tablet Take 4 mg by mouth as needed. Disp: 20 tablet Rfl: 0 insulin glargine (BASAGLAR KWIKPEN) 100 unit/mL (3 mL) inpn Inject 30 units in the morning and 40 units at night Indications: DIABETES MELLITUS (Patient taking differently: Inject 60 units in the morning and 70 units at night ) Disp: Rfl: DULoxetine (CYMBALTA) 60 mg capsule Take 1 capsule by mouth twice daily. Disp: 180 capsule Rfl: 3 COMPOUNDED PRESCRIPTION PEREZ AND NEPHEW Skin-Prep. V45.89, V44.2. Use as directed twice a week. Disp: 100 Each Rfl: 6 ALPRAZolam (XANAX) 0.5 mg tablet Take 0.5 tablets by mouth twice daily as needed. Disp: 30 tablet Rfl: 2 insulin needles, DISPOSABLE, (BD INSULIN PEN NEEDLE UF) 31 gauge x 5/16 ndle Inject 4-6 times daily Disp: 200 Each Rfl: 11 TENS Units windy 1 Device as directed. Disp: 1 Device Rfl: 0 isosorbide dinitrate (ISORDIL, SORBITRATE) 30 mg tablet Take 1 tablet by mouth three times daily. Disp: Rfl: blood sugar diagnostic (FREESTYLE LITE STRIPS) test strip TEST BLOOD SUGAR(S)5-6 DAILY. DX: DIABETES. INSULIN: YES Disp: 150 Strip Rfl: 11 furosemide (LASIX) 20 mg tablet Take 1 tablet by mouth once daily. Disp: Rfl: 0 COMPOUNDED PRESCRIPTION SHARPS IRONER OR PRESSER. Dx: E11.65. On insulin. Disp: 1 Each Rfl: 0 COMPOUNDED PRESCRIPTION CONVATEC Allkare Adhesive remover. V45.89, V44.2. Use twice a week as directed. Disp: 100 Each Rfl: 6 magnesium oxide (MAG-OX) 400 mg tablet Take 1 tablet by mouth three times daily. (Patient taking differently: Take 400 mg by mouth twice daily. ) Disp: Rfl: metoprolol tartrate, short acting, 50 mg tablet Take 1.5 tablets by mouth three times daily. Disp: Rfl: 0 aspirin (ASPIRIN CHILDRENS) 81 mg chewable tablet Take 81 mg by mouth once daily. Disp: Rfl: clopidogrel (PLAVIX) 75 mg tablet Take 75 mg by mouth once daily. Disp: Rfl: ursodiol (ACTIGALL) 300 mg capsule Take 1 capsule by mouth twice daily. Disp: 60 capsule Rfl: 1 fenofibrate (LOFIBRA) 200 mg capsule Take 1 capsule by mouth daily with breakfast. Disp: 30 capsule Rfl: [address] (PROTONIX) 40 mg tablet Take 1 tablet by mouth daily before breakfast. Take on empty stomach, 1/2 hr before meal. (Patient not taking: Reported on 08/09/2017 ) Disp: 30 tablet Rfl: 1 oxyCODONE-acetaminophen (PERCOCET) 5-325 mg tablet Take 1 tablet by mouth every 8 hours as needed for Pain. (Patient not taking: Reported on 08/09/2017 ) Disp: 21 tablet Rfl: 0 COMPOUNDED PRESCRIPTION Convatec - Juanita Cohesive Ostomy Seals #[id number]: V45.89; V44.2 Disp: 20 Each Rfl: 11 COMPOUNDED PRESCRIPTION Convatec - Esteem 10 drainable ostomy pouch #[id number]: V45.89; V44.2 Disp: 20 bag Rfl: 11 buPROPion (WELLBUTRIN) 75 mg tablet Take 1 tablet by mouth twice daily. (Patient not taking: Reported on 08/09/2017 ) Disp: 60 tablet Rfl: 6 nitroglycerin sublingual (NITROSTAT) 0.4 mg SL tablet Dissolve 0.4 mg under the tongue every 5 minutes as needed. Disp: Rfl: No current facility-administered medications for this visit. ALLERGIES Allergen Reactions - Cinnamon Anaphylaxis Airborne and ingested reactions: throat AND lips swell, SOB - Dicyclomine Vomiting - Azulfidine [Sulfasa* Hives - Codeine Intolerance Stops ileostomy functioning-severe constipation - Flagyl [Metronidazo* Hives - Fluzone High-Dose 2* Shortness of Breath Difficulty breathing, chest pain - Glucophage [Metform* GI Upset - Influenza Virus Vac* Shortness of Breath, Other: See Comments Chest pain - Penicillins Hives - Sulfa (Sulfonamide * Hives - Victoza [Liraglutid* Other: See Comments Acute pancreatitis REVIEW OF SYSTEMS General: No weight loss, malaise or fevers. 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 No neurological symptoms or problems. Respiratory: COPD, Obstructive Sleep Apnea (on CPAP) Cardiovascular: Hypertension requiring meds, PTCA / PCI: a total of 9 coronary stents following CABG in June 2012 at [facility]; currently on aspirin and plavix; CHF. 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 Endocrine: Diabetes Mellitus on insulin Hematology: Easy bruising / bleeding Oncology: No history of CA metastasis, chemo within 30 days, or radiotherapy within 90 days. No history of oncological symptoms or problems. Psych: Anxiety, Depression Skin: Negative for lesions, rash, and itching. PHYSICAL EXAM VITALS: BP 110/59 Pulse 69 Temp (Src) 98.1 (Oral) Ht 5' 7 (1.70m) Wt 205 lb 14.4 oz (93.4kg) SpO2 95% BMI 32.24 kg/(m2). General: Alert and oriented Skin: Normal color, no rash, no lesions. HEENT: EOM, pupils equal, round and reactive. Cardiovascular: Normal S1 AND S2, no rubs, murmurs or gallops. No JVD. Pulse regular. Lungs: Diminished air entry both lung corral; no wheezes or crackles. Abdomen: Soft, non-tender, no rigidity. Extremities: No deformity, no edema or tenderness, no joint swelling or clubbing. Neurological: Normal cognition and motor skills. Pulses: Carotid and radial pulses normal +2. ASSESSMENT Ms. Méndez is a 57 year old female referred to me for preoperative evaluation. Patient has the following medical comorbidities which might affect the perioperative course: - CAD of the stockbridge vessel. Status post CABG x 3, Surgery date in June 2012;. Status post PCI (with Drug Eluding Stent x 1 implanted on LAD; X 1:Circumflex on 08/2012 followed by [facility] to obtuse marginal 1 and !st diagonal on 09/14/2012; she has been on aspirin and plavix since then). Stable with no angina at rest or exertion. Plavix held since yesterday per her Soil Sampler she stays on aspirin. - COPD with moderate Emphysema. 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 Patient is on insulin. Fasting sugar 170-200 - Hypertension, well controlled. - Patient with sleep apnea and uses CPAP. - CKD: Baseline serum creatinine 1.1-1.5 Patient's RCRI (Revised Cardiac Risk Index: CAD/CHF/Stroke or TIA/SCr>2/DM on Insulin/High Risk Surgery) score is 1 and is at low risk for major adverse cardiac events in the perioperative period. Diagnostic tests reviewed for today's visit: PENDING EK08/09/2017: NSR; no Q waves; ST/ T wave inversions I, aVL; V3-V6; no recent EKG available for comparison. Nuclear Stress test negative for ischemia July 2017: from [facility] [place]. LHC: 2016: Showed adequate revasularization; results reviewed in [facility] PLAN/RECOMMENDATIONS CARDIAC: Patient is at optimal cardiac condition for scheduled surgery / procedure. Continue the following medications uninterrupted in the perioperative period: Aspirin; Metoprolol; Isordil; Lasix PULMONARY: Patient is at increased risk for postoperative pulmonary complications. Suggest the following in the post-operative period: Continue bronchodilator medications, Aggressive bronchopulmonary hygiene, CPAP/BiPAP at home setting (advised patient to bring their CPAP/BiPAP machine/mask), Minimize sedation/opioids as patient has ANKITA and Early ambulation ENDOCRINE: DIABETES: - Initiate [facility] Guidelines for perioperative diabetes management. Check finger stick glucose on the morning of surgery. - Patient has been instructed on Preoperative DM medication management. Patient is optimally prepared for surgery pending labs Patient Instructions: As per patient instructions section. I have discussed the above recommendations with the patient in detail, in luna and lay terms, and provided a written summary of instructions as needed. We have discussed that no surgery is without risk, but that the goal of preoperative assessment is to optimize that risk, and that was clearly understood by the patient. I have given ample opportunity for the patient to ask questions, and answered all questions to their stated satisfaction. SIGNATURE: jN Schulz MD PATIENT NAME: Ailyn Méndez DATE: August 09, 2017 TIME: 8:24 AM Nj Schulz MD 08/09/2017 8:49 AM Addendum [facility] Patient Instructions for Surgery FOOD INSTRUCTIONS: NO solid food or non-clear liquids for 8 hours prior to the arrival time for your surgery. Unless you are instructed otherwise, you are allowed to drink up to 12 ounces of clear liquids (e.g. water, black tea/coffee, fruit juice without pulp, Sue Drea, etc.) up until 2 hours prior to the arrival time for surgery. MEDICATION INSTRUCTIONS: Prior to Surgery: Do not take the following medications for 7 days prior to surgery: - any NSAID's (e.g. Motrin, Aleve, Arthrotec, Naproxen,etc) - any herbal preparations - Plavix Do not take any Vitamin E / multivitamins for 10-14 days before surgery You are allowed to take Tylenol if needed until the day of surgery. Please bring your inhalers and or CPAP/BiPAP machine and mask when you come for your surgery. Do NOT STOP YOUR ASPIRIN as you have a cardiac/coronary stent. MEDICATION INSTRUCTIONS: Day/Morning of Surgery: The following medications should be taken with sips of water: Lyrica;Aspirin; Isordil; Lasix; Metoprolol; Cymbalta Opiates (percocet, vicodin, MS contin, darvocet, ultram,etc), if needed for pain, can be taken on morning of surgery. Use your inhalers as needed / prescribed on day of surgery. Bring your inhaler with you to the hospital. DIABETES MANAGEMENT INSTRUCTIONS: Eat a usual diet until the day prior to surgery unless indicated by your surgeon/physician. If your blood sugar is below 70 mg/dl at any time, treat with ? cup of apple juice or sue drea, or 4 glucose tabs or 1 tube of oral glucose gel. MEDICATION INSTRUCTIONS: Prior to Surgery: ? Take your usual dose of Novolog ? Take ONLY 55 units of Basaglar night before surgery. MEDICATION INSTRUCTIONS: Day/Morning of Surgery: ? Do not take any injections like symlin, byetta or mealtime insulin. If you have any questions or concerns regarding today's visit please do not hesitate to contact the [facility] at [phone] or [phone], ext [phone]. Signature: Nj Schulz MD Date: August 09, 2017 Previous Version Progress Notes ([facility]): Marina Cuadra, RN, RN 08/18/2017 11:07 AM Addendum ANESTHESIA PRE-OPERATIVE ASSESSMENT ([facility]) SERVICE DATE: 08/09/2017 SERVICE TIME: 0939 ASSESSMENT AND PLAN: Ailyn Méndez is a 57 year old female scheduled for Exploratory lap per Surgery Request Case in MAIN on 08/19/17. PMH: 1. Intestinal fistula- for above surgery 2. CAD- s/p cabg in 06/2012 and a total of 9 stents in 2012, following cabg. Takes isordil, metoprolol, asa- continuing, and plavix- will be stopped for surgery. Followed by os training and development project leader and cleared for surgery. Recent stress test in 07/2017 was negative for ischemia and showed preserved EF. +CP and SOB- stable and unchanged per pt. Pt states CP is not related to activity or rest, present since cabg, she described it as nerve pain, it is a different CP when compared to the CP she had prior to cabg and stents. Most recent stress test and LHC is scanned in [facility]. 3. ?Pulmonary HTN- pt had an echo in the last ~week, [facility] requesting. Pt is scheduled to see PULM, CXR and PFTs on 08/11. 4. COPD- prn albuterol- not used often 5. Chronic CHF- normal EF, takes lasix 6.HPL- atorvastatin, fenofibrate 7. GERD- protonix. Hx of gastroparesis, pancreatitis 8. CKD- labs pending 9. DM- glargine and novolog 10. Anxiety depression- wellbutrin, cymbalta, xanax prn 11. Chronic pain- back, abdominal, chest- lyrica, percocet prn [facility]: 4 FC: 2-3 METS: Climb a flight of stairs or walk up a hill (5.50 METs) Patient denies any chest pain or undue shortness of breath with the above physical activity. Patient WILL accept blood products. BLOOD WORK/PRODUCTS ORDERED: Type and Screen , Con ABO HISTORY OF CHRONIC PAIN: Yes - back, abdominal, chest- lyrica, percocet prn PAIN MANAGEMENT OPTIONS: Routine/PRN IV and Final pain management plan will be discussed on the day of surgery. ANESTHETIC OPTIONS: General and Final anesthesia management options will be discussed on day of surgery. PRE-OP PLAN ORDERED: Not Applicable Patient Instructed: ? Nothing to eat or drink after midnight. ? Patient instructed to take the following medications with a sip of water: metoprolol, isordil, protonix, glargine half dose, xanax prn, wellbutrin, cymbalta, lyrica, zofran and percocet prn Vital Signs: BP 110/59 Pulse 69 Ht 170.2 cm (5' 7.01) Wt 93.4 kg (205 lb 14.6 oz) SpO2 95% BMI 32.24 kg/m? BMI 32.24 kg/(m2) Vital signs completed by: IMPACT Weight acquired: per HANDP. Height acquired: per HANDP Airway Exam: MOUTH OPENING/TMJ: Full jaw ROM MICROGNATHIA/OVERBITE: No MALLAMPATI SCORE is CLASS III UPPER LIP BITE TEST: Class I - Lower incisors can bite the upper lip above the black line DENTITION: Chipped, loose, and/or missing - missing on top sides towards the back THYROMENTAL DIST: WNL SHORT NECK: No NECK CIRCUMFERENCE >40 cm: Appears < than 40 CM NECK FLEX: Full ROM NECK EXTENSION: Full ROM AIRWAY HISTORY: No abnormal airway history ARKS AIRWAY DETAIL: N/A DATA: EKG READING: Unconfirmed - Procedure Date : Aug 09 2017 07:25:32 Edit Date : Aug 09 2017 07:29:05 ? Diagnosis:NORMAL SINUS RHYTHM ST AND ANTEROLATERAL T WAVE ABNORMALITY ABNORMAL ECG ? Ventricular Rate : 69 ?BPM OTHER TESTS: Stress Test: Date: 07/2017, Results: osh, scanned in [facility]. Negative for ischemia, preserved EF Echo: Date: 07/2017, Results: done at OSH ~last week. [facility] is requesting and pt is bringing copy to PULM appt on 08/11. Last echo in [facility] in 04/2015- EF 65%, 1+mitral insuff, unable to eval RVSP Cardiac Cath: Date: 08/2015, Results: OSH, scanned in [facility]- fairly well vascularized PFTs- pending 08/11 CXR- pending 08/11 HBA1C: Hemoglobin A1C (%) Date Value 06/23/2016 8.7 03/18/2016 9.5 ) Patient accompanied by self Case Discussed with Dr Howard OPTIMIZATION STATUS: Patient optimization pending Labs IMPACT Outside medical records [facility] (most recent echo) PULM eval and PFTs- sched for 08/11 at SIGNATURE: Marina Cuadra RN PATIENT NAME: Ailyn Méndez DATE: August 09, 2017 TIME: 10:34 AM PAGER/CONTACT #: Addendum 08/13/17 Kirti Cuadra RN Per Pul... The patient still has anterior chest pain which is chronic in nature. It is not believed to be cardiac in origin. Echocardiogram from 08/05/17 demonstrates an ejection fraction of 67% with normal left ventricular function. Grade 1 diastolic dysfunction ? Pulm eval Assessment: Preoperative pulmonary evaluation prior to surgery for a laparotomy and closure of Small bowel fistula. ? Cardiac evaluation scheduled. ? From a pulmonary standpoint the patient is an ASA III physical status classification. She has obstructive sleep apnea requiring a CPAP of 7 cm of water pressure without oxygen. ? Her spirometry does not demonstrate obstruction, but I suspect she has a mixed obstructive and restrictive process. I would recommend an albuterol nebulizer twice a day post operatively until discharge. Incentive spirometry every 3 hours while awake. Mrs. Méndez has used steroids repeatedly through the past several years for numerous problems. I would recommend a steroid prep at the time of surgery. Solu-Medrol 15 mg IV every 6 hours ?4 doses and stop. Recommend the patient out of the bed in a chair as soon as possible with early ambulation. CXR IMPRESSION: No acute radiographic abnormality. PFTs IMPRESSION: Spirometry shows no obstruction. The reduced FVC suggests restriction. Recommend lung volumes if clinically indicated. The diffusing capacity is normal. ECHO done at OSH on 07/08/17 was received by ALTON, will be scanned into [employer]. Previous Version 6 MINUTE WALK TEST Observed: 07/20/2017 Status: F Source: [place] 5:33 AM [facility] [place] Pulmonary Services/Neurology [address] [place] [address] MR#: [id number] Acct: [id number] Name: AILYN MÉNDEZ Rep #: [id number] : 1960 57 From: Davide Baca MD Referring Dr: Davide Baca MD Date: Ordering Dr: Sex: F C Location: PSN PSN 6 Minute Walk Test - 6 Minute Walk Test 6 Minute Walk Test: 6 Minute Walk Test PSN:6-Minute Walk Test Start: 07/19/17 12:43 Freq: Status: Active Protocol: RESP.6MINW Document 07/19/17 12:44 YVETTE (Rec: 07/19/17 12:48 YVETTE [id number]) 6 Minute Walk Test Date Performed 07/19/17 Time Performed 12:30 Height 5 ft 7 in Weight: 92.986 kg Weight in Pounds 205.[address]: Davide Baca Assistive device used: None Pre-test Oxygen Delivery Method Room Air Pulse Ox (%) 93 Pulse Rate (60-100 beats/min) 81 Dyspnea Melissa Scale (0-10) 1 Exertion Melissa Scale (6-20) 6 1st minute Oxygen Delivery Method Room Air Pulse Ox (%) 92 Pulse Rate (60-100 beats/min) 90 2nd minute Oxygen Delivery Method Room Air Pulse Ox (%) 92 Pulse Rate (60-100 beats/min) 91 3rd minute Oxygen Delivery Method Room Air Pulse Ox (%) 93 Pulse Rate (60-100 beats/min) 97 4th minute Oxygen Delivery Method Room Air Pulse Ox (%) 92 Pulse Rate (60-100 beats/min) 98 5th minute Oxygen Delivery Method Room Air Pulse Ox (%) 92 Pulse Rate (60-100 beats/min) 92 6th minute Oxygen Delivery Method Room Air Pulse Ox (%) 92 Pulse Rate (60-100 beats/min) 94 Dyspnea Melissa Scale (0-10) 3 Exertion Melissa Scale (6-20) 13 Reported Symptoms Dizziness Post-test Oxygen Delivery Method Room Air Pulse Ox (%) 96 Pulse Rate (60-100 beats/min) 82 Full Laps Walked 17 Partial Lap, Number of Tiles Walked 26 Total Distance Walked (ft) 1029 - Interpretation Interpretation: The patient was able to ambulate 1029 feet over the course of 6 minutes on room air with no assistive devices or breaks. The patient did not have any significant tachycardia or desaturation during testing, but did report dizziness at the end of testing. Baseline oxygen saturation was decreased at 93%. These findings are consistent with a respiratory limitation exercise tolerance. - Recommendations Recommendations: No supplemental oxygen is indicated at this time. However, this will need to be followed closely given patient's decreased baseline saturations. 07/20/1733 <Electronically signed by Davide Baca MD> Date Davide Baca MD CC: Date Dictated: 07/20/17530 Date Transcribed: 07/20/17530 Jboss Developer: Davide Baca Signed 12 LEAD ELECTROCARDIOGRAM Observed: 07/12/2017 Status: F Source: [place] 2:34 PM [facility] [place] Cardiovascular Services [facility] [address] [place] [address] 12 Lead EKG 07/08/17 0554 MR#: [id number] Acct: [id number] Name: AILYN MÉNDEZ Rep #: [id number] : 1960 56 From: Fish Stone MD Attending Dr: Angelo Garcia MD Status: DIS RUPINDER Ordering Dr: Castillo Ferris MD Date: 07/08/17 Location: [facility] Sex: F C Admitted: 07/07/17 Test Reason : AM EKG Blood Pressure : / mmHG Vent. Rate : 065 BPM Atrial Rate : 065 BPM P-R Int : 160 ms QRS Dur : 092 ms QT Int : 416 ms P-R-T Axes : 009 -17 149 degrees QTc Int : 432 ms Normal sinus rhythm Left ventricular hypertrophy with repolarization abnormality Abnormal ECG When compared with ECG of 07-JUL-2017 12:31, MANUAL COMPARISON REQUIRED, DATA IS UNCONFIRMED Confirmed by FISH STONE MD ([id number]), online content editor KATHERIN HULL ([id number]) on 07/12/2017 2:34:38 PM Referred By: DR FERRIS Confirmed By:FISH STONE MD 07/12/17 1434 Date Fish Stone MD CC: Shannan Mcgrath MD; Angelo Garcia MD; Castillo Ferris MD Signed LIPID PROFILE Collected: 07/12/2017 Status: F Source: [place] 9:42 AM [facility] [place] TYPE CODE TESTS RESULT OUT OF RANGE REFERENCE UNITS LAB L501.4900 200 mg/dL Normal CHOL 200 Result Comment: <200 mg/dL Desirable 200-240 mg/dL Borderline >240 mg/dL High Risk LAB L501.5000 mg/dL High TRIG 506 Result Comment: The drugs N-Acetylcysteine and Metamizole may falsely depress this assay. TRIGLYCERIDE IS GREATER THAN 400 mg/dL. LDL RESULT IS INVALID AND WILL NOT BE REPORTED. Serum Triglycerides Reference Interval Normal <150 mg/dL Borderline high 150 - 199 mg/dL High 200 - 499 mg/dL Very High > or = 500 mg/dL LAB L501.6400 mg/dL Normal HDL 47 Result Comment: The drugs N-Acetylcysteine and Metamizole may falsely depress this assay. Reference Range HDL <40 mg/dL Low HDL Cholesterol HDL >or= 60 mg/dL High HDL Cholesterol LAB L501.6500 0-130 mg/dL Test Normal not performed LDL LAB L501.6600 5-40 mg/dL Test Normal not performed VLDL Performed By: #### L500.4100 #### [facility] [address] [place], [address] HEMOGLOBIN A1C Collected: 07/12/2017 Status: F Source: [place] 9:42 AM [facility] [place] TYPE CODE TESTS RESULT OUT OF RANGE REFERENCE UNITS LAB L501.9985 4.2-6.3 % High HGB A1C 9.4 Performed By: #### L501.9985 #### [facility] [address] [place], [address] MICROALB:CREAT Collected: 07/12/2017 Status: F Source: [place] RATIO,RANDOM UR 9:38 AM [facility] [place] [facility] TYPE CODE TESTS RESULT OUT OF RANGE REFERENCE UNITS LAB L501.1200 NO RANGE EST. mg/dL Normal UR CREAT 170.00 LAB L502.0500 NO RANGE EST. mg/L Normal 115.0 MICROALBUMIN ,UR LAB L502.0600 <30 mg/g CRE mg/g CRE High 67.6 MALB:CREAT Performed By: #### L502.0250 #### [facility] [address] [place], [address] DISCHARGE SUMMARY Observed: 07/09/2017 Status: F Source: [place] 4:13 PM [facility] [place] Medical Records Department [address] [place] [address] Discharge Summary 07/08/17 1242 MR#: [id number] Acct: [id number] Name: AILYN MÉNDEZ Rep #: [id number] : 1960 56 From: Angelo Garcia MD PCP: Shannan Mcgrath MD Status: DIS RUPINDER Y Location: PCU [id number] Discharge Date and Diagnosis Date of Admission: 07/07/17 Date of Discharge: 07/08/17 - Secondary Discharge Diagnosis Chronic Problems (Last Reviewed 07/02/17 @ 13:05 by Jory Ruiz) Multiple falls (Chronic) Shortness of breath (Chronic) Abdominal pain (Chronic) Ileostomy status (Chronic) Surgical wound dehiscence (Chronic) CAD (coronary artery disease) (Chronic) Hyperlipidemia (Chronic) Continues on statin without side effect. Reports taking as directed. No recent labs noted. Diarrhea (Chronic) Anemia of chronic renal failure, stage 3 (moderate) (Chronic) Obstructive sleep apnea (Chronic) Psoriasis (Chronic) Heart failure with preserved ejection fraction (Chronic) Benign essential HTN (Chronic) Depression (Chronic) DM2 (diabetes mellitus, type 2) (Chronic) FCHL (familial combined hyperlipidemia) (Chronic) Ulcerative colitis (Chronic) Status post ileostomy Hx of coronary artery disease (Chronic) Status post CABG, failed, status post multiple stents. Pulmonary hypertension (Chronic) History of coronary artery stent placement (Chronic 2012) Mid LAD and Cx 2012, D1 and prox OM1 2012, Prox SVG, Distal SVG to the Mid OM 2012 S/P CABG (coronary artery bypass graft) (Chronic 2012) JONES to LAD, SVG diag, SVG to OM, SVG to left PDA Chronic respiratory failure (Chronic) COPD (chronic obstructive pulmonary disease) (Chronic) Hospital Course and Treatment Imaging Results: 07/08/17 05:55 Nuclear Stress Test - Chemical [NM] AM (NON MEDS) Consultations 07/07/17 16:46 Consult: Onc/Wound/dispenser operator Routine Comment: Operations: None Summary of Care Provided: The patient is a 56 year old F with multiple comorbidities as listed above 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 She was discharged home in a stable condition symptom-free. Physical exam at time of discharge; vital signs were stable. He was alert and oriented to time place and person. He did not appear to be any form of distress. S1 and S2 heard no murmur or gallop Lung exam was clear to auscultation with no adventitious sounds. Abdomen was soft nontender with normal bowel sounds. extremity exam did not reveal any edema, palpable pulses bilaterally. Neurologic exam was grossly intact. Discharge Diet: No Restrictions Discharge Activity: Return to Normal Activity Home Medications: Medications to take at Discharge Aspirin [Aspirin, Baby] 81 mg PO DAILY@0800 01/21/15 Atorvastatin Calcium [Lipitor] 80 mg PO QHS 01/21/15 Clopidogrel Bisulfate [Plavix] 75 mg PO DAILY 01/21/15 Magnesium Oxide [Mag-Ox 400] 400 mg PO BID 01/21/15 Metoprolol Tartrate [Lopressor (beta esha)] 75 mg PO TID 01/21/15 Isosorbide DN [Isordil] 30 mg PO TID 09/03/16 Ondansetron HCl [Zofran] 4 mg PO Q8H PRN PRN #20 tab 09/05/16 Baclofen 10 mg PO QHS 11/24/16 Calcium Carbonate [Calcium] 600 mg PO BID 11/24/16 Cholecalciferol (Vitamin D3) [Vitamin D3] 2,000 unit PO DAILY 11/24/16 loperamide 2 mg tablet 2 mg PO 4X/DAY PRN PRN tab 02/12/17 omeprazole 20 mg capsule,delayed release 20 mg PO DAILY 02/12/17 triamcinolone acetonide 0.1 % topical cream 1 applic TOPICAL BID PRN PRN 02/12/17 albuterol sulfate HFA 90 mcg/actuation aerosol inhaler 1 puff INHALATION Q6H PRN #1 inh 03/10/17 insulin aspart U-100 100 unit/mL subcutaneous pen 25 - 35 units SC TIDCM ml 03/23/17 miconazole nitrate 2 % topical powder 1 applic TOPICAL DAILY 03/23/17 tramadol 50 mg tablet 50 mg PO BID PRN PRN tab 05/05/17 Hydrocortisone 1 applic TOPICAL BID 06/02/17 nitroglycerin 0.4 mg sublingual tablet 0.4 mg SUBLINGUAL Q5M PRN #25 tab 06/08/17 pregabalin 50 mg capsule 50 mg PO BID cap 06/08/17 insulin glargine (U-100) 100 unit/mL (3 mL) subcutaneous pen 70 unit SC BID ml 06/11/17 lorazepam 0.5 mg tablet 0.5 mg PO QHS PRN #30 tab 06/11/17 Duloxetine Hcl [Cymbalta] 20 mg PO BID 06/29/17 buprenorphine 5 mcg/hour weekly transdermal patch 1 patch TRANSDERMAL QWEEK 07/02/17 Furosemide [Lasix] 40 mg PO DAILY 07/07/17 Primary Care Physician: Shannan Mcgrath MD [Primary Care Provider] - In 1 Week Medical Necessity - Tobacco Use Smoking Status: Heavy Smoker (>10/day) Tobacco Use: Cigarettes Meaningful Use Info Meaningful Use Diagnoses (Choose all that apply): None applicable Code Visit OBSV E AND M: 50898 Observation care discharge 07/09/17 1613 <Electronically signed by Angelo Garcia MD> Date Angelo Garcia MD Cosigner Signature (if applicable): Date CC: Shannan Mcgrath MD; Angelo Garcia MD Signed 12 LEAD ELECTROCARDIOGRAM Observed: 07/09/2017 Status: F Source: [place] 3:39 PM [facility] [place] Cardiovascular Services [address] [place] [address] 12 Lead EKG 07/07/17 1029 MR#: [id number] Acct: [id number] Name: AILYN MÉNDEZ Rep #: [id number] : 1960 56 From: Fish Stone MD Attending Dr: Angelo Garcia MD Status: DIS RUPINDER Ordering Dr: Robbin Palacios MD Date: 07/07/17 Location: [facility] Sex: F C Admitted: 07/07/17 Test Reason : CP Blood Pressure : / mmHG Vent. Rate : 099 BPM Atrial Rate : 099 BPM P-R Int : 158 ms QRS Dur : 088 ms QT Int : 366 ms P-R-T Axes : 039 -28 122 degrees QTc Int : 469 ms Normal sinus rhythm Left ventricular hypertrophy with repolarization abnormality Abnormal ECG Confirmed by FISH STONE MD ([id number]), online content editor KATHERIN HULL ([id number]) on 07/09/2017 3:38:32 PM Referred By: EMILY Confirmed By:FISH STONE MD 07/09/17 1538 Date Fish Stone MD CC: Shannan Mcgrath MD; Angelo Garcia MD; Robbin Palacios MD Signed 12 LEAD ELECTROCARDIOGRAM Observed: 07/09/2017 Status: F Source: [place] 3:39 PM [facility] Cardiovascular Services [address] [place] [address] 12 Lead EKG 07/07/17 1231 MR#: [id number] Acct: [id number] Name: AILYN MÉNDEZ Rep #: [id number] : 1960 56 From: Fish Stone MD Attending Dr: Angelo Garcia MD Status: DIS RUPINDER Ordering Dr: Robbin Palacios MD Date: 07/07/17 Location: [facility] Sex: F C Admitted: 07/07/17 Test Reason : REPEAT Blood Pressure : / mmHG Vent. Rate : 107 BPM Atrial Rate : 107 BPM P-R Int : 160 ms QRS Dur : 084 ms QT Int : 362 ms P-R-T Axes : 057 -28 116 degrees QTc Int : 483 ms Sinus tachycardia Left ventricular hypertrophy with repolarization abnormality Abnormal ECG Confirmed by FISH STONE MD ([id number]), online content editor KATHERIN HULL ([id number]) on 07/09/2017 3:38:54 PM Referred By: EMILY Confirmed By:FISH STONE MD 07/09/17 1539 Date Fish Stone MD CC: Shannan Mcgrath MD; Angelo Garcia MD; Robbin Palacios MD Signed DISCHARGE INSTRUCTION Observed: 07/08/2017 Status: F Source: [place] 12:42 PM [facility] Medical Records Department [address] [place] [address] Instructions for Home/Discharge Instructions 07/08/17 1241 MR#: [id number] Acct: [id number] Name: AILYN MÉNDEZ Rep #: [id number] : 1960 56 From: Angelo Garcia MD PCP: Shannan Mcgrath MD Status: ADM RUPINDER You will use the following diet at home:: Regular Discharge Activity: Return to Normal Activity Allergies/Adverse Reactions: Allergies cinnamon [Cinnamon] Allergy (Verified 07/07/17 10:32) Anaphylaxis Influenza Virus Vaccines Allergy (Verified 07/07/17 10:32) Shortness of breath liraglutide [From Victoza] Allergy (Verified 07/07/17 10:32) Anaphylaxis metronidazole [From Flagyl] Allergy (Verified 07/07/17 10:32) Hives Metronidazole HCl [From Flagyl] Allergy (Verified 07/07/17 10:32) Hives Penicillins Allergy (Verified 07/07/17 10:32) Hives Sulfa (Sulfonamide Antibiotics) Allergy (Verified 07/07/17 10:32) Hives ciprofloxacin [From Cipro] Adverse Reaction (Verified 07/07/17 10:32) Nausea codeine Adverse Reaction (Verified 07/07/17 10:32) Stops Ileostomy dicyclomine HCl [From Bentyl] Adverse Reaction (Verified 07/07/17 10:32) Nausea metformin HCl [From Glucophage] Adverse Reaction (Verified 07/07/17 10:32) Nausea Jqlmiob-Edb-Nnc Reductase Inhibitor Adverse Reaction (Verified 07/07/17 10:32) Nausea/joints ache Medications to take at Discharge Aspirin [Aspirin, Baby] 81 mg PO DAILY@0800 01/21/15 Atorvastatin Calcium [Lipitor] 80 mg PO QHS 01/21/15 Clopidogrel Bisulfate [Plavix] 75 mg PO DAILY 01/21/15 Magnesium Oxide [Mag-Ox 400] 400 mg PO BID 01/21/15 Metoprolol Tartrate [Lopressor (beta esha)] 75 mg PO TID 01/21/15 Isosorbide DN [Isordil] 30 mg PO TID 09/03/16 Ondansetron HCl [Zofran] 4 mg PO Q8H PRN PRN #20 tab 09/05/16 Baclofen 10 mg PO QHS 11/24/16 Calcium Carbonate [Calcium] 600 mg PO BID 11/24/16 Cholecalciferol (Vitamin D3) [Vitamin D3] 2,000 unit PO DAILY 11/24/16 loperamide 2 mg tablet 2 mg PO 4X/DAY PRN PRN tab 02/12/17 omeprazole 20 mg capsule,delayed release 20 mg PO DAILY 02/12/17 triamcinolone acetonide 0.1 % topical cream 1 applic TOPICAL BID PRN PRN 02/12/17 albuterol sulfate HFA 90 mcg/actuation aerosol inhaler 1 puff INHALATION Q6H PRN #1 inh 03/10/17 insulin aspart U-100 100 unit/mL subcutaneous pen 25 - 35 units SC TIDCM ml 03/23/17 miconazole nitrate 2 % topical powder 1 applic TOPICAL DAILY 03/23/17 tramadol 50 mg tablet 50 mg PO BID PRN PRN tab 05/05/17 Hydrocortisone 1 applic TOPICAL BID 06/02/17 nitroglycerin 0.4 mg sublingual tablet 0.4 mg SUBLINGUAL Q5M PRN #25 tab 06/08/17 pregabalin 50 mg capsule 50 mg PO BID cap 06/08/17 insulin glargine (U-100) 100 unit/mL (3 mL) subcutaneous pen 70 unit SC BID ml 06/11/17 lorazepam 0.5 mg tablet 0.5 mg PO QHS PRN #30 tab 06/11/17 Duloxetine Hcl [Cymbalta] 20 mg PO BID 06/29/17 buprenorphine 5 mcg/hour weekly transdermal patch 1 patch TRANSDERMAL QWEEK 07/02/17 Furosemide [Lasix] 40 mg PO DAILY 07/07/17 Primary Care Physician: Shannan Mcgrath MD [Primary Care Provider] - In 1 Week 07/08/17 1242 <Electronically signed by Angelo Garcia MD> Date Angelo Garcia MD CC: Shannan Mcgrath MD BEDSIDE GLUCOSE Collected: 07/08/2017 Status: F Source: [place] 11:28 AM [facility] [place] TYPE CODE TESTS RESULT OUT OF REFERENCE UNITS RANGE LAB L501.080 70-110 mg/dL High BEDSIDE GLU 207 Result Comment: MANAGEMENT OF PATIENT CARE PER NURSING PROTOCOL Performed By: #### L501.080 #### [facility] Point of Care [address] [place] [address] STRESS REPORT Observed: 07/08/2017 Status: F Source: [place] 10:02 AM [facility] [place] Cardiovascular Services [address] [place] [address] MR#: [id number] Acct: [id number] Name: AILYN MÉNDEZ Rep #: [id number] : 1960 56 From: Alireza Smith MD Primary Care: Shannan Mcgrath MD Status: ADM RUPINDER Ordering Dr: Sex: F C Stress Test Report Date: The 2017 Procedure: Pharmacologic stress nuclear imaging study Indications: Chest pain Consent: Per the patient Procedure: The patient underwent pharmacologic (Regadenoson) evaluation with a peak heart rate of 85 beats per minute (50 predicted maximal heart rate) and a peak blood pressure of 140/72 mmHg. The baseline ECG demonstrated normal sinus rhythm with nonspecific ST/T-wave abnormality. The peak pharmacologic ECG demonstrated ECG changes. There were no cardiac dysrhythmias pretest, during pharmacologic infusion, or recovery. There was no complaint of chest discomfort during pharmacologic infusion or recovery. The examination was discontinued secondary to completion of protocol. Impression: 1. Pharmacologic (Regadenoson) evaluation 2. Peak pharmacologic ECG with no obvious ECG changes. 3. Cardiac dysrhythmias pretest, during pharmacologic infusion, or recovery 4. Nuclear images pending Myocardial perfusion imaging study: Technique: The patient was injected with 11.7 millicuries of technetium 99m Cardiolite and subsequently rest SPECT Cardiolite nuclear imaging was obtained in the horizontal long, vertical long, and short axis views. The patient underwent pharmacologic (Regadenoson) evaluation with a peak heart rate of 85 beats per minute (50 % percent predicted maximal heart rate) and a peak blood pressure of 140/72 mmHg. The patient was injected with 33.8 millicuries of technetium 99m Cardiolite and subsequently stress SPECT Cardiolite nuclear imaging was obtained in the horizontal long, vertical long, and short axis views. A gated Cardiolite study at peak stress was obtained. Interpretation: Rest and stress SPECT Cardiolite nuclear imaging status post realignment, normalization, and attenuation correction demonstrate relative uniform tracer uptake and myocardial perfusion appearing within normal limits. There is end systolic thickening and brightening. The gated Cardiolite study demonstrates myocardial thickening and inward wall motion. The reported LVEF is 68 %. Impression: 1. Rest and stress SPECT Cardiolite nuclear imaging demonstrate relative uniform tracer uptake and myocardial perfusion appearing within normal limits. 2. The gated Cardiolite study reports an LVEF of 68 %. This note was generated with [employer] software. It may contain incorrect words, spelling, and punctuation that were not noted in checking the note before signing. 07/08/17 1002 <Electronically signed by Alireza Smith MD> Date Alireza Smith MD CC: Shannan Mcgrath MD; Angelo Garcia MD Date Dictated: 07/08/1754 Date Transcribed: 07/08/17953 Jboss Developer: PM Signed BEDSIDE GLUCOSE Collected: 07/08/2017 Status: F Source: [place] 5:47 AM [facility] [place] TYPE CODE TESTS RESULT OUT OF REFERENCE UNITS RANGE LAB L501.080 70-110 mg/dL High BEDSIDE GLU 136 Result Comment: MANAGEMENT OF PATIENT CARE PER NURSING PROTOCOL Performed By: #### L501.080 #### [facility] Point of Care [facility] [place] [address] BASIC METABOLIC Collected: 07/08/2017 Status: F Source: [place] PROFILE (BMP) 5:05 AM [facility] TYPE CODE TESTS RESULT OUT OF RANGE REFERENCE UNITS LAB L501.0100 74-106 mg/dL High GLU 160 Result Comment: Fasting Glucose result greater than or equal to 126 mg/dL suggests DIABETES MELLITUS per A.D.A. criteria. Please note revised GLUCOSE reference range effective 2017. LAB L501.1000 7-18 mg/dL High BUN 27 LAB L501.1100 0.55-1.02 mg/dL High CREAT,SERUM 1.20 Result Comment: The validity of the calculated GFR AND GFRAA in patients over 70 years has not been determined. Clinical correlation is essential. LAB L501.1110 >60 mL/min Low EST GFR 49 Result Comment: Non- GFR Calc LAB L501.1115 >60 mL/min Low EST GFR - AA 59 Result Comment: GFR Calc LAB L501.1255 ml/min Normal Estimated CRCL 49.69 LAB L501.1300 10-20 RATIO High BUN/CRE 22.5 LAB L501.2200 8.5-10 mg/dL Normal .1 CA 9.6 LAB L501.5300 136-14 mmol/L Normal 5 NA 142 LAB L501.5600 3.5-5. mmol/L Normal 1 K 4.5 LAB L501.5900 98-107 mmol/L Normal CL 105 LAB L501.6100 21.0-3 mmol/L Normal 2.0 CO2 30.0 LAB L501.6200 5-15 Normal GAP 7 Performed By: #### L500.2500, L500.4100, L501.9520 #### [facility] [address] [place], [address] LIPID PROFILE Collected: 07/08/2017 Status: F Source: [place] 5:05 AM [facility] TYPE CODE TESTS RESULT OUT OF RANGE REFERENCE UNITS LAB L501.4900 200 mg/dL High CHOL 239 Result Comment: <200 mg/dL Desirable 200-240 mg/dL Borderline >240 mg/dL High Risk LAB L501.5000 mg/dL High TRIG 752 Result Comment: The drugs N-Acetylcysteine and Metamizole may falsely depress this assay. TRIGLYCERIDE IS GREATER THAN 400 mg/dL. LDL RESULT IS INVALID AND WILL NOT BE REPORTED. Serum Triglycerides Reference Interval Normal <150 mg/dL Borderline high 150 - 199 mg/dL High 200 - 499 mg/dL Very High > or = 500 mg/dL LAB L501.6400 mg/dL Low HDL 38 Result Comment: The drugs N-Acetylcysteine and Metamizole may falsely depress this assay. Reference Range HDL <40 mg/dL Low HDL Cholesterol HDL >or= 60 mg/dL High HDL Cholesterol LAB L501.6500 0-130 mg/dL Test Normal not performed LDL LAB L501.6600 5-40 mg/dL Test Normal not performed VLDL Performed By: #### L500.2500, L500.4100, L501.9520 #### [facility] [address] [facility] [place], [address] THYROID STIM HORMONE Collected: 07/08/2017 Status: F Source: [place] ([place]) 5:05 AM [facility] TYPE CODE TESTS RESULT OUT OF RANGE REFERENCE UNITS LAB L501.9520 0.358-3.74 uIU/mL Normal TSH 1.02 Performed By: #### L500.2500, L500.4100, L501.9520 #### [facility] [facility] [address] [place], [address] PROTHROMBIN TIME W/INR Collected: 07/08/2017 Status: F Source: [place] 5:05 AM [facility] Order Comment: ADD ON TYPE CODE TESTS RESULT OUT OF RANGE REFERENCE UNITS LAB L300.4150 11.7-14.9 SECONDS Normal PROTIME 12.5 LAB L300.4200 Normal INR 0.9 Performed By: #### L300.3900, L300.4310 #### [facility] [address] [place], [address] PARTIAL THROMBOPLAST Collected: 07/08/2017 Status: F Source: [place] TIME 5:05 AM [facility] Order Comment: ADD ON TYPE CODE TESTS RESULT OUT OF RANGE REFERENCE UNITS LAB L300.4310 24.1-36.2 Seconds Normal PTT 27.4 Performed By: #### L300.3900, L300.4310 #### [facility] [address] [place], [address] CBC W/DIFF, AUTOMATED Collected: 07/08/2017 Status: F Source: [place] 5:05 AM [facility] Order Comment: ADD ON TYPE CODE TESTS RESULT OUT OF RANGE REFERENCE UNITS LAB L100.1000 4.4-11.0 K/mm3 Normal WBC 6.5 LAB L100.1200 4.2-5.4 M/mm3 Normal RBC 4.35 LAB L100.1300 12.0-15.0 g/dl Normal HGB 12.3 LAB L100.1400 37-47 % Normal HCT 39.2 LAB L100.1500 81-99 fL Normal MCV 90.1 LAB L100.1600 27.0-32.0 pg Normal MCH 28.3 LAB L100.1700 32-36 g/gl Low MCHC 31.4 LAB L100.1810 11.6-14.6 % High RDW CV 14.8 LAB L100.1820 35.1-43.9 fl High RDW SD 49.1 LAB L100.1900 150-450 K/mm3 Low PLT 149 LAB L100.2000 6.2-12.0 fl High MPV 12.3 LAB L100.2100 47-70 % Normal NEUT% 58.9 LAB L100.2200 19-41 % Normal LY% 28.5 LAB L100.2300 0-10 % Normal MONO% 5.0 LAB L100.2400 0-5 % High EO% 6.0 LAB L100.2500 0-1 % Normal BASO% 0.8 LAB L100.2550 0.0-0.9 % Normal IM GRAN % 0.800 Result Comment: IG% - Immature Granulocytes (promyelocytes, myelocytes and metamyelocytes) > 1% indicates that a LEFT SHIFT is Present. LAB L100.2620 2.0-7.7 X10 3/uL Normal Absolute Neut 3.8 LAB L100.2720 0.83-4.51 X10 3/ul Normal Absolute Lymph 1.84 Performed By: #### L100.0100 #### [facility] [address] [place], [place], [address] TROPONIN-I Collected: 07/07/2017 Status: F Source: [place] 11:54 PM [facility] Order Comment: 'TROP' Serial specimen #1, #2, #3, or #4: 4 TYPE CODE TESTS RESULT OUT OF RANGE REFERENCE UNITS LAB L501.4010 <0.06 ng/mL High 0.08 TROPONIN-I Result Comment: TROPONIN-I EXPECTED VALUES <0.05 NEGATIVE 0.06 - 0.[address] > OR = 0.[address] Performed By: #### L501.4010 #### [facility] [address] [place], [address] BEDSIDE GLUCOSE Collected: 07/07/2017 Status: F Source: [place] 9:12 PM [facility] TYPE CODE TESTS RESULT OUT OF REFERENCE UNITS RANGE LAB L501.080 70-110 mg/dL High BEDSIDE GLU 313 Result Comment: MANAGEMENT OF PATIENT CARE PER NURSING PROTOCOL Performed By: #### L501.080 #### [facility] Point of Care [address] [place] [address] EMERGENCY DEPARTMENT Observed: 07/07/2017 Status: F Source: [place] SUMMARY 5:44 PM [facility] Medical Records Department [address] [place] [address] Emergency Department Summary 07/07/17 1539 MR#: [id number] Acct: [id number] Name: AILYN MÉNDEZ Rep #: [id number] : 1960 56 From: Robbin Palacios MD PCP: Shannan Mcgrath MD Status: ADM RUPINDER - ER Visit Summary Date of Service: 07/07/17 Chief Complaint: Chest pain and headache History of Present Illness: The patient is a [address] Stone and Dr. Mcgrath. She reports that she has chest pain that began at 5:00 this morning. Sick continuous crushing pain that is 9 out of 10 at worst and 7 out of 10 currently. Is worsened by exertion relieved by remaining still. She has had nausea. No vomiting, diaphoresis, or shortness of breath. Patient reports that she also has a headache that began this morning at 5 AM as well. States that it is gradually increased. To squeezing pain that is 8 out of 10. This increased with light. Nothing makes this better. She denies any numbness or weakness. No change in her vision. No recent injury. Physical Examination: Vitals: 215/99, 102, 14, 96% on room air which is not hypoxic. Afebrile. General: Well-nourished and well-developed. Head: Normocephalic atraumatic. Neck: Supple, no lymphadenopathy. No JVD. Nontender. Cardiovascular: Regular rate and rhythm. No murmurs. Respiratory: No respiratory distress. Clear to auscultation bilaterally. Abdominal: Soft, nontender, nondistended, normal bowel sounds. No guarding, rebound, or peritoneal signs. Back: Nontender. Extremities: Nontender, no edema. Skin: Normal color, no rash. Neurologic: Alert and oriented 3. Cranial nerves II through XII are intact. Normal strength and sensation. Psych: Normal affect. Test Results: EKG is sinus at 99 with LVH and repolarization changes. It is unchanged from last month. Repeat EKG is unchanged. CBC is marked for platelets 147. Chem-7 is more for BUN of 26, creatinine 1.27, glucose of 274. Initial troponin 0 0.04. Two-hour troponin is 0.08. CT chest shows a nodule right thyroid lobe that is 1.4 cm. No dissection or PE. CT brain shows chronic changes. Emergency Department Course and Treatment: Patient was initially treated with aspirin, morphine, and Zofran. She continued to complain of a headache. She was given Benadryl, Toradol, Compazine IV. Her heart rate elevated into the 1 teens and she was given Lopressor IV. Treatment Plan: Her pain is very atypical. I do not think that this is cardiac in etiology. However, with her troponin increasing from 0.04-0.08 she was discussed with Dr. Stone. She will be admitted to the hospital for further evaluation and treatment. Disposition: Admitted in stable condition. Impression: 1. Atypical chest pain. 2. JAMAAL score of 3. 3. Cephalgia. This note was generated with [employer] dictation software. It may contain incorrect words, spelling, and punctuation that were not noted in review of the chart prior to signing ED Disposition - Plan for ED Patient: Chief Complaint: Chest Pain What to do if you have Problems For any increased pain, shortness of breath, bleeding, nausea or vomiting, chest pain, or any unexpected problems, contact your Primary Care Provider. Call [employer] [facility] ([phone]) or report to the closest Emergency Room. Call 911 if necessary. 07/07/17 9720 <Electronically signed by Robbin Palacios MD> Date Robbin Palacios MD Cosigner Signature (If Indicated): Date CC: Shannan Mcgrath MD BEDSIDE GLUCOSE Collected: 07/07/2017 Status: F Source: [place] 5:05 PM [facility] TYPE CODE TESTS RESULT OUT OF REFERENCE UNITS RANGE LAB L501.080 70-110 mg/dL High BEDSIDE GLU 138 Result Comment: MANAGEMENT OF PATIENT CARE PER NURSING PROTOCOL Performed By: #### L501.080 #### [facility] Point of Care [address] [place] [address] TROPONIN-I Collected: 07/07/2017 Status: F Source: [place] 5:05 PM [facility] Order Comment: 'TROP' Serial specimen #1, #2, #3, or #4: 3 TYPE CODE TESTS RESULT OUT OF RANGE REFERENCE UNITS LAB L501.4010 <0.06 ng/mL High 0.12 TROPONIN-I Result Comment: TROPONIN-I EXPECTED VALUES <0.05 NEGATIVE 0.06 - 0.[address] > OR = 0.[address] Performed By: #### L501.4010 #### [facility] [address] [place] [address], [address] HISTORY AND PHYSICAL Observed: 07/07/2017 Status: F Source: [place] EXAM 3:37 PM [facility] Medical Records Department [address] [place] [address] History and Physical 07/07/17 1520 MR#: [id number] Acct: [id number] Name: AILYN MÉNDEZ Rep #: [id number] : 1960 56 From: Castillo Ferris MD PCP: Shannan Mcgrath MD Status: ADM RUPINDER Y Location: [place] [address] Problem List (1) Multiple falls Status: Chronic (2) Shortness of breath Status: Chronic (3) Abdominal pain Status: Chronic (4) Ileostomy status Status: Chronic (5) Surgical wound dehiscence Status: Chronic Qualifiers: (6) CAD (coronary artery disease) Status: Chronic (7) Hyperlipidemia Status: Chronic Qualifiers: Comment: Continues on statin without side effect. Reports taking as directed. No recent labs noted. (8) Acute pancreatitis Status: Resolved (9) Diarrhea Status: Chronic (10) Anemia of chronic renal failure, stage 3 (moderate) Status: Chronic (11) Obstructive sleep apnea Status: Chronic (12) Gastroparesis Status: Suspected (13) Psoriasis Status: Chronic (14) Heart failure with preserved ejection fraction Status: Chronic (15) Benign essential HTN Status: Chronic (16) Depression Status: Chronic Qualifiers: (17) DM2 (diabetes mellitus, type 2) Status: Chronic Qualifiers: (18) FCHL (familial combined hyperlipidemia) Status: Chronic (19) Ulcerative colitis Status: Chronic Comment: Status post ileostomy (20) Hx of coronary artery disease Status: Chronic Comment: Status post CABG, failed, status post multiple stents. (21) Pulmonary hypertension Status: Chronic (22) History of coronary artery stent placement Status: Chronic Comment: Mid LAD and Cx 2012, D1 and prox OM1 2012, Prox SVG, Distal SVG to the Mid OM 2012 (23) S/P CABG (coronary artery bypass graft) Status: Chronic Comment: JONES to LAD, SVG diag, SVG to OM, SVG to left PDA (24) Chronic respiratory failure Status: Chronic (25) COPD (chronic obstructive pulmonary disease) Status: Chronic History of Present Illness Date of Admission: 07/07/17 Chief Complaint: Chest pain today The patient is a 56 year old F with multiple comorbidities as listed above 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 Her chest pain is midsternal, aggravated by deep inspiration, radiates to left arm and neck, persistent is little better after medication in ER. Patient also said she has mild shortness of breath, diaphoresis along with chest pain but denies dizziness, near syncope or syncope. Initial workup in the ER is negative. EKG shows sinus tachycardia at [address]-T changes. She had nuclear stress test in March 2016 which was negative for myocardial ischemia. In ER, her first troponin was -0.04 and then second little elevated, 0.08. ER physician Dr. Palacios discussed with Dr. stone and he advised cycle cardiac enzymes and rule out acute coronary syndrome. [] Past Medical History Past Medical History (Chronic Problems): Chronic Problems (Last Reviewed 07/02/17 @ 13:05 by Jory Ruiz) Multiple falls (Chronic) Shortness of breath (Chronic) Abdominal pain (Chronic) Ileostomy status (Chronic) Surgical wound dehiscence (Chronic) CAD (coronary artery disease) (Chronic) Hyperlipidemia (Chronic) Continues on statin without side effect. Reports taking as directed. No recent labs noted. Diarrhea (Chronic) Anemia of chronic renal failure, stage 3 (moderate) (Chronic) Obstructive sleep apnea (Chronic) Psoriasis (Chronic) Heart failure with preserved ejection fraction (Chronic) Benign essential HTN (Chronic) Depression (Chronic) DM2 (diabetes mellitus, type 2) (Chronic) FCHL (familial combined hyperlipidemia) (Chronic) Ulcerative colitis (Chronic) Status post ileostomy Hx of coronary artery disease (Chronic) Status post CABG, failed, status post multiple stents. Pulmonary hypertension (Chronic) History of coronary artery stent placement (Chronic 2012) Mid LAD and Cx 2012, D1 and prox OM1 2012, Prox SVG, Distal SVG to the Mid OM 2012 S/P CABG (coronary artery bypass graft) (Chronic 2013) JONES to LAD, SVG diag, SVG to OM, SVG to left PDA Chronic respiratory failure (Chronic) COPD (chronic obstructive pulmonary disease) (Chronic) Allergies cinnamon [Cinnamon] Allergy (Verified 07/07/17 10:32) Anaphylaxis Influenza Virus Vaccines Allergy (Verified 07/07/17 10:32) Shortness of breath liraglutide [From Victoza] Allergy (Verified 07/07/17 10:32) Anaphylaxis metronidazole [From Flagyl] Allergy (Verified 07/07/17 10:32) Hives Metronidazole HCl [From Flagyl] Allergy (Verified 07/07/17 10:32) Hives Penicillins Allergy (Verified 07/07/17 10:32) Hives Sulfa (Sulfonamide Antibiotics) Allergy (Verified 07/07/17 10:32) Hives ciprofloxacin [From Cipro] Adverse Reaction (Verified 07/07/17 10:32) Nausea codeine Adverse Reaction (Verified 07/07/17 10:32) Stops Ileostomy dicyclomine HCl [From Bentyl] Adverse Reaction (Verified 07/07/17 10:32) Nausea metformin HCl [From Glucophage] Adverse Reaction (Verified 07/07/17 10:32) Nausea Gzhcaou-Bri-Pfg Reductase Inhibitor Adverse Reaction (Verified 07/07/17 10:32) Nausea/joints ache Home Medications: Ambulatory Orders Medication Instructions Recorded Aspirin [Aspirin, Baby] 81 mg PO DAILY@0800 01/21/15 Surgical History: angioplasty, coronary bypass surgery, - - Complete colectomy for ulcerative colitis 30 years ago. Patient had her ileostomy transitioned over from her right to her left. Smoking Status: Former smoker - *Family History Maternal History Items: Heart Disease, - - No autoimmune disease that she is aware of Paternal History Items: Cancer - Father has H/o lymphoma, - - No autoimmune disease that she is aware of Review of Systems Constitutional: Denies: Chills, Fever, Weight Change HEENT: Denies: Head Aches, Sinus Congestion, Sinus Drainage Cardiovascular: Reports: Chest Pressure. Denies: Chest Pain, Palpitations Respiratory: Denies: Cough, Shortness of breath at rest, Sputum production Gastrointestinal: Denies: Abdominal Pain, Nausea, Vomiting Genitourinary: Denies: Dysuria Musculoskeletal: Reports: Joint Pain, Leg Pain, Muscle pain. Denies: Joint Tenderness Skin: Reports: Rash. Denies: Wounds Neurological: Denies: Numbness, Tingling, Focal weakness Psychiatric: Reports: Anxiety. Denies: Depression, Homicidal Ideations, Suicidal Ideations Hematologic/ Lymphatic: Denies: Easy Bruising, Easy Bleeding VTE Information - Inpt Only VTE Present on Admission: No VTE Mechan Device Prophylaxis: SCD's VTE Pharm Prophylaxis ordered?: Yes - Physical Exam General: Alert, Oriented x3, Cooperative HEENT: Atraumatic, PERRLA, EOMI, Normocephalic Neck: Supple, No JVD, Negative Carotid Bruits Lungs: Diminished, Rhonchi, Wheezes Cardiovascular: Regular rate, Regular Rhythm, Normal S1, Normal S2, No murmurs, Tachycardic Abdomen: Bowel Sounds Present, Soft, Non Tender Extremities: No edema, Capillary Refill Less than 3 Seconds Skin: Rash Present - Psoriatic rash present on the elbow. 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 Her chest pain is midsternal, aggravated by deep inspiration, radiates to left arm and neck, persistent is little better after medication in ER. Patient also said she has mild shortness of breath, diaphoresis along with chest pain but denies dizziness, near syncope or syncope. Initial workup in the ER is negative. EKG shows sinus tachycardia at [address]-T changes. She had nuclear stress test in March 2016 which was negative for myocardial ischemia. In ER, her first troponin was -0.04 and then second little elevated, 0.08. ER physician Dr. Palacios discussed with Dr. stone and he advised cycle cardiac enzymes and rule out acute coronary syndrome. 1. Atypical chest pain; seems probably pleuritic rule out acute coronary syndrome: Patient is being admitted in PCU. Cycle cardiac enzymes. Continue her cardiac medications aspirin, Plavix, Isordil 30 mg 3 times daily, metoprolol and nitro sublingual as needed. Discussed with training and development project leader Dr. Stone and if cardiac enzymes are negative, can discharge tomorrow and no need for cardiology consult. 2. Coronary artery disease status post four-vessel CABG in 90 stents with chronic diastolic heart failure: As mentioned above. Had cardiac cath in 2015 which shows normal left main, mid LAD totally occluded, first diagonal mild to moderate disease left circumflex mild disease but third large obtuse marginal with moderately severe disease and totally occluded with saphenous vein graft supplying this vessel. Echo in April 2015 shows EF 65%. Mild MR. Unable to estimate RV systolic pressure because of suboptimal study and body habitus. 3. Diabetes S type II with uncontrolled hyperglycemia: On a scheduled NovoLog insulin and Levemir twice daily . Accu-Chek before meals and at bedtime and cover with sliding scale insulin if needed. 4. Multiple comorbidities including hypertension, ulcerative colitis status post ileostomy, pulmonary hypertension, COPD, dyslipidemia, psoriasis: She uses hydrocortisone cream on face and triamcinolone on elbow. Home medication reconciliation done. DVT prophylaxis: On Lovenox 40 mg subcu daily and bilateral SCDs Laboratory Results 07/07/17 10:40: WBC 6.1, RBC 4.77, Hgb 13.7, Hct 42.1, MCV 88.3, MCH 28.7, MCHC 32.5, RDW 14.6, RDW Differential 46.9 H, Plt Count 147 L, MPV 12.3 H, Immature Gran % (Auto) 0.700, Neut % (Auto) 65.3, Lymph % (Auto) 24.4, Butler % (Auto) 4.5, Eos % (Auto) 4.6, Baso % (Auto) 0.5, Absolute Neuts (auto) 4.0, Absolute Lymphs (auto) 1.48, Total Counted Not Reportable 07/07/17 10:40: PT 12.2, INR 0.9 07/07/17 10:40: Sodium 138, Potassium 4.0, Chloride 103, Carbon Dioxide 26.0, Anion Gap 9, BUN 26 H, Creatinine 1.27 H, Estim Creat Clear Calc 46.95, Est GFR (MDRD) Af Amer 55 L, Est GFR (MDRD) Non-Af 46 L, BUN/Creatinine Ratio 20.5 H, Glucose 274 H, Calcium 9.8, Troponin I 0.04 07/07/17 13:38: Troponin I 0.08 H Clinical Impression(s) from Imaging Studies Chest X-Ray 07/07/17 10:40 IMPRESSION: Degenerative changes, as described above. No demonstrated acute cardiopulmonary process. Electronically Signed: Cris Mckee MD at 11:08 EDT Tel , Service support , Brain CT 07/07/17 10:57 IMPRESSION: Chronic involutional changes of the brain. Electronically Signed: Cris Mckee MD at 12:05 EDT Tel , Service support , Chest CTA 07/07/17 12:22 IMPRESSION: No demonstrated pulmonary embolism or arterial dissection. There is a nonspecific nodule in the right thyroid lobe measures 1.4 cm. \ Code Visit OBSV E AND M: [id number] Initial observation care L3 07/07/17 1537 <Electronically signed by Castillo Ferris MD> Date Castillo Ferris MD Cosigner Signature: Date (if applicable) CC: Shannan Mcgrath MD; Castillo Ferris MD Signed TROPONIN-I Collected: 07/07/2017 Status: F Source: [place] 1:38 PM [facility] Order Comment: Comments: Should be drawn 3H after initial Troponin obtained 'TROP' Serial specimen #1, #2, #3, or #4: 2 TYPE CODE TESTS RESULT OUT OF RANGE REFERENCE UNITS LAB L501.4010 <0.06 ng/mL High 0.08 TROPONIN-I Result Comment: TROPONIN-I EXPECTED VALUES <0.05 NEGATIVE 0.06 - 0.[address] > OR = 0.[address] Performed By: #### L501.4010 #### [facility] [address] [place], [address] CTA CHEST W/WO Observed: 07/07/2017 Status: F Source: [place] CONTRAST 12:23 PM [facility] Imaging Services [address] [place] [address] CTA Chest W/WO Contrast MR#: [id number] Acct: [id number] Name: AILYN MÉNDEZ Rep #: [id number] : 1960 F 56 From: Cris Mckee MD PCP: Shannan Mcgrath MD Status: REG ER Study: CTA Chest W/WO Contrast Date of Exam: 07/07/17 Exam# [id number] Ordering Dr: Robbin Palacios MD STUDY: CTA CHEST REASON FOR EXAM: Female, 56 years old. CHEST PAIN RADIATION DOSAGE (If Supplied By Facility): CTDIvol = ( 14.84 ) mGy, DLP = ( 615.03 ) mGycm TECHNIQUE: The examination was performed with the intravenous administration of 100 ml of Isovue 370 contrast material. Post-processing of the angiographic images was performed, with multiplanar reformation and 3D reconstruction. Individualized dose optimization techniques were used for this CT. COMPARISON: None. FINDINGS: There is a nonspecific nodule in the right thyroid lobe measures 1.4 cm. Normal enhancement of the main pulmonary artery and right and left pulmonary arteries. Normal enhancement of the bilateral peripheral pulmonary arteries. There is no demonstrated pulmonary embolism. Normal thoracic aorta and visualized great vessels. There is no demonstrated aortic dissection. Normal heart and pericardium. Normal mediastinum. Normal hilar regions. Normal visualized trachea and bronchi. The lungs are well expanded. Normal pulmonary parenchyma. Normal pleura. Normal chest wall structures. There are degenerative changes of thoracic spine. Normal visualized upper abdomen. CT/CTA Chest W/WO Contrast IMPRESSION: No demonstrated pulmonary embolism or arterial dissection. There is a nonspecific nodule in the right thyroid lobe measures 1.4 cm. Electronically Signed: Cris Mckee MD at 13:27 EDT Tel , Service support , CC: Shannan Mcgrath MD; Robbin Palacios MD [employer] Developer: Signed BRAIN/HEAD WITHOUT Observed: 07/07/2017 Status: F Source: [place] CONTRAST 10:58 AM [facility] Imaging Services [address] [place] [address] Brain/Head without Contrast MR#: [id number] Acct: [id number] Name: AILYN MÉNDEZ Rep #: [id number] : 1960 F 56 From: Cris Mckee MD PCP: Shannan Mcgrath MD Status: REG ER Study: Brain/Head without Contrast Date of Exam: 07/07/17 Exam# [id number] Ordering Dr: Robbin Palacios MD STUDY: CT BRAIN WITHOUT CONTRAST REASON FOR EXAM: Female, 56 years old. HEADACHE/CHEST PAIN TODAY HX-MIGRAINES,CABG X4,HEART STENTS X9,HTN,DIAB,COPD RADIATION DOSAGE (If Supplied By Facility): CTDIvol = ( 44.99 ) mGy, DLP = ( 779.24 ) mGycm TECHNIQUE: Transaxial CT imaging of the brain was performed without administration of intravenous contrast material. Individualized dose optimization techniques were used for this CT. COMPARISON: None. FINDINGS: Normal soft tissue structures. Prior antral mastoidectomy on the right side. Normal size ventricles and extra-axial spaces for the patient's age. There are areas of decreased attenuation within the white matter tracts of the supratentorial brain, consistent with microvascular disease changes. Normal basal ganglia and thalami. Normal brainstem. Normal cerebellum. There is no intracranial hemorrhage. There are no findings of an acute ischemic infarction. Normal visualized paranasal sinuses. CT/Brain/Head without Contrast IMPRESSION: Chronic involutional changes of the brain. Electronically Signed: Cris Mckee MD at 12:05 EDT Tel , Service support , CC: Shannan Mcgrath MD; Robbin Palacios MD [employer] Developer: Signed CBC W/DIFF, AUTOMATED Collected: 07/07/2017 Status: F Source: [place] 10:40 AM [facility] TYPE CODE TESTS RESULT OUT OF RANGE REFERENCE UNITS LAB L100.1000 4.4-11.0 K/mm3 Normal WBC 6.1 LAB L100.1200 4.2-5.4 M/mm3 Normal RBC 4.77 LAB L100.1300 12.0-15.0 g/dl Normal HGB 13.7 LAB L100.1400 37-47 % Normal HCT 42.1 LAB L100.1500 81-99 fL Normal MCV 88.3 LAB L100.1600 27.0-32.0 pg Normal MCH 28.7 LAB L100.1700 32-36 g/gl Normal MCHC 32.5 LAB L100.1810 11.6-14.6 % Normal RDW CV 14.6 LAB L100.1820 35.1-43.9 fl High RDW SD 46.9 LAB L100.1900 150-450 K/mm3 Low PLT 147 LAB L100.2000 6.2-12.0 fl High MPV 12.3 LAB L100.2100 47-70 % Normal NEUT% 65.3 LAB L100.2200 19-41 % Normal LY% 24.4 LAB L100.2300 0-10 % Normal MONO% 4.5 LAB L100.2400 0-5 % Normal EO% 4.6 LAB L100.2500 0-1 % Normal BASO% 0.5 LAB L100.2550 0.0-0.9 % Normal IM GRAN % 0.700 Result Comment: IG% - Immature Granulocytes (promyelocytes, myelocytes and metamyelocytes) > 1% indicates that a LEFT SHIFT is Present. LAB L100.2620 2.0-7.7 X10 3/uL Normal Absolute Neut 4.0 LAB L100.2720 0.83-4.51 X10 3/ul Normal Absolute Lymph 1.48 Performed By: #### L100.0100 #### [facility] [address] [place], [place], [address] PROTHROMBIN TIME W/INR Collected: 07/07/2017 Status: F Source: [place] 10:40 AM [facility] [place] TYPE CODE TESTS RESULT OUT OF RANGE REFERENCE UNITS LAB L300.4150 11.7-14.9 SECONDS Normal PROTIME 12.2 LAB L300.4200 Normal INR 0.9 Performed By: #### L300.3900 #### [facility] [address] [place], [place], [address] BASIC METABOLIC Collected: 07/07/2017 Status: F Source: [place] PROFILE (BMP) 10:40 AM [facility] [place] Order Comment: 'TROP' Serial specimen #1, #2, #3, or #4: 1 TYPE CODE TESTS RESULT OUT OF RANGE REFERENCE UNITS LAB L501.0100 74-106 mg/dL High GLU 274 Result Comment: Glucose result greater than or equal to 200 mg/dL suggests DIABETES MELLITUS per A.D.A. criteria. Please note revised GLUCOSE reference range effective 2017. LAB L501.1000 7-18 mg/dL High BUN 26 LAB L501.1100 0.55-1.02 mg/dL High CREAT,SERUM 1.27 Result Comment: The validity of the calculated GFR AND GFRAA in patients over 70 years has not been determined. Clinical correlation is essential. LAB L501.1110 >60 mL/min Low EST GFR 46 Result Comment: Non- GFR Calc LAB L501.1115 >60 mL/min Low EST GFR - AA 55 Result Comment: GFR Calc LAB L501.1255 ml/min Normal Estimated CRCL 46.95 LAB L501.1300 10-20 RATIO High BUN/CRE 20.5 LAB L501.2200 8.5-10 mg/dL Normal .1 CA 9.8 LAB L501.5300 136-14 mmol/L Normal 5 NA 138 LAB L501.5600 3.5-5. mmol/L Normal 1 K 4.0 LAB L501.5900 98-107 mmol/L Normal CL 103 LAB L501.6100 21.0-3 mmol/L Normal 2.0 CO2 26.0 LAB L501.6200 5-15 Normal GAP 9 Performed By: #### L500.2500, L501.4010 #### [facility] [address] [place], [address] TROPONIN-I Collected: 07/07/2017 Status: F Source: [place] 10:40 AM [facility] [place] Order Comment: 'TROP' Serial specimen #1, #2, #3, or #4: 1 TYPE CODE TESTS RESULT OUT OF RANGE REFERENCE UNITS LAB L501.4010 <0.06 ng/mL Normal 0.04 TROPONIN-I Result Comment: TROPONIN-I EXPECTED VALUES <0.05 NEGATIVE 0.06 - 0.[address] > OR = 0.[address] Performed By: #### L500.2500, L501.4010 #### [facility] [address] [place], [address] CHEST 1 VIEW Observed: 07/07/2017 Status: F Source: [place] (PORTABLE) 10:35 AM [facility] REPOSIT[facility] Imaging Services [address] [place] [address] Chest 1 View (Portable) MR#: [id number] Acct: [id number] Name: AILYN MÉNDEZ Rep #: [id number] : 1960 F 56 From: Cris Mckee MD PCP: Shannan Mcgrath MD Status: PRE ER Study: Chest 1 View (Portable) Date of Exam: 07/07/17 Exam# [id number] Ordering Dr: Robbin Palacios MD STUDY: X-RAY CHEST REASON FOR EXAM: Female, 56 years old. Chest pain TECHNIQUE: Single AP portable view of the chest. COMPARISON: 06/02/2017 FINDINGS: The lungs are clear and expanded. There is no demonstrated pleural abnormality. Sternal cerclage wires and vascular clips are present from a prior sternotomy and coronary artery bypass graft procedure (CABG). Normal mediastinum and marie. Normal visualized pulmonary arteries. Normal visualized aortic arch and descending thoracic aorta. Normal visualized thoracic spine. There is degenerative osteoarthritis of the bilateral shoulders. There is no demonstrated abnormality of the visualized soft tissue structures of the upper abdomen. RAD/Chest 1 View (Portable) IMPRESSION: Degenerative changes, as described above. No demonstrated acute cardiopulmonary process. 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 Fistulogram 04/21/2017 from outside facility. IMPRESSION: Right lower quadrant fistula was accessed with plastic portion of the 20-gauge Angiocath and small amount of Omnipaque 300 was injected under fluoroscopy in AP and lateral projections. Opacified 1.0 cm superficial collection which extends medially and cephalad with irregular 3.0 cm fistula tract within the subcutaneous soft tissues. There is no contrast within the bowel to suggest enterocutaneous fistula. Vague irregular somewhat globular density on the lateral view deep to the fistula is artifact. Transcribed Using Voice Recognition Transcribe Date/Time: Jul 06 2017 11:54A Dictated by: GERMAINE RYAN MD This examination was interpreted and the report reviewed and electronically signed by: GERMAINE RYAN MD on Jul 06 2017 2:13PM EST [id number] INTERNAL MEDICINE Observed: 07/02/2017 Status: F Source: [place] OFFICE VISIT 5:01 PM [facility] [place] [facility] [place] [address] [place] [address] OFFICE VISIT Date of Service: 07/02/17 MR#: [id number] Acct: [id number] Name: AILYN MÉNDEZ Rep #: [id number] : 1960 Provider: Shannan Mcgrath MD Age/Sex: 56/F [place] [facility] [place] Status: Signed Intake Vital Signs07/02/17 Height 5 ft 7 in 07/02/17 Weight: 207 lb 07/02/17 Body Mass Index (BMI) 32.4 07/02/17 Blood Pressure 139/75 Intake Visit Reasons: 1 mo f/u Chief Complaint: 1 mo F/U wound on left side Is patient in pain?: Yes (Wound on side) Pain scale (1-10): 7 Allergies cinnamon [Cinnamon] Allergy (Verified 07/02/17 13:02) Anaphylaxis Influenza Virus Vaccines Allergy (Verified 07/02/17 13:02) Shortness of breath liraglutide [From Victoza] Allergy (Verified 07/02/17 13:02) Anaphylaxis metronidazole [From Flagyl] Allergy (Verified 07/02/17 13:02) Hives Metronidazole HCl [From Flagyl] Allergy (Verified 07/02/17 13:02) Hives Penicillins Allergy (Verified 07/02/17 13:02) Hives Sulfa (Sulfonamide Antibiotics) Allergy (Verified 07/02/17 13:02) Hives ciprofloxacin [From Cipro] Adverse Reaction (Verified 07/02/17 13:02) Nausea codeine Adverse Reaction (Verified 07/02/17 13:02) Stops Ileostomy dicyclomine HCl [From Bentyl] Adverse Reaction (Verified 07/02/17 13:02) Nausea metformin HCl [From Glucophage] Adverse Reaction (Verified 07/02/17 13:02) Nausea Lffgbam-Vcr-Axz Reductase Inhibitor Adverse Reaction (Verified 07/02/17 13:02) Nausea/joints ache Medications Aspirin [Aspirin, Baby] 81 mg PO DAILY@0800 01/21/15 [History Confirmed 07/02/17] Atorvastatin Calcium [Lipitor] 80 mg PO QHS 01/21/15 [History Confirmed 07/02/17] Clopidogrel Bisulfate [Plavix] 75 mg PO DAILY 01/21/15 [History Confirmed 07/02/17] Magnesium Oxide [Mag-Ox 400] 400 mg PO BID 01/21/15 [History Confirmed 07/02/17] Metoprolol Tartrate [Lopressor (beta esha)] 75 mg PO TID 01/21/15 [History Confirmed 07/02/17] Isosorbide DN [Isordil] 30 mg PO TID 09/03/16 [History Confirmed 07/02/17] Ondansetron HCl [Zofran] 4 mg PO Q8H PRN PRN #20 tab 09/05/16 [Rx Confirmed 07/02/17] Baclofen 10 mg PO QHS 11/24/16 [History Confirmed 07/02/17] Calcium Carbonate [Calcium] 600 mg PO BID 11/24/16 [History Confirmed 07/02/17] Cholecalciferol (Vitamin D3) [Vitamin D3] 2,000 unit PO DAILY 11/24/16 [History Confirmed 07/02/17] loperamide 2 mg tablet 2 mg PO .qid PRN tab 02/12/17 [History Confirmed 07/02/17] omeprazole 20 mg capsule,delayed release 20 mg PO DAILY 02/12/17 [History Confirmed 07/02/17] triamcinolone acetonide 0.1 % topical cream 1 applic TOPICAL BID 02/12/17 [History Confirmed 07/02/17] albuterol sulfate HFA 90 mcg/actuation aerosol inhaler 1 puff INHALATION Q6H PRN #1 inh 03/10/17 [Rx Confirmed 07/02/17] insulin aspart U-100 100 unit/mL subcutaneous pen See Label Instructions SC TID ml 03/23/17 [History Confirmed 07/02/17] miconazole nitrate 2 % topical powder 1 applic TOPICAL QDAY 03/23/17 [History Confirmed 07/02/17] tramadol 50 mg tablet 50 mg PO BID tab 05/05/17 [History Confirmed 07/02/17] Hydrocortisone 1 applic TOPICAL BID 06/02/17 [History Confirmed 07/02/17] fenofibrate micronized 200 mg capsule 200 mg PO QDAY 06/08/17 [History Confirmed 07/02/17] furosemide 40 mg tablet 40 mg PO QDAY #90 tab 06/08/17 [Rx Confirmed 07/02/17] nitroglycerin 0.4 mg sublingual tablet 0.4 mg SUBLINGUAL Q5M PRN #25 tab 06/08/17 [Rx Confirmed 07/02/17] pregabalin 50 mg capsule 50 mg PO BID cap 06/08/17 [History Confirmed 07/02/17] insulin glargine (U-100) 100 unit/mL (3 mL) subcutaneous pen 70 unit SC BID ml 06/11/17 [History Confirmed 06/30/17] lorazepam 0.5 mg tablet 0.5 mg PO QHS PRN #30 tab 06/11/17 [Rx Confirmed 07/02/17] Cephalexin [Cephalexin] 500 mg PO BID 06/29/17 [History Confirmed 07/02/17] Doxycycline Hyclate 100 mg PO BID 06/29/17 [History Confirmed 07/02/17] Duloxetine Hcl [Cymbalta] 20 mg PO BID 06/29/17 [History Confirmed 07/02/17] buprenorphine 5 mcg/hour weekly transdermal patch 1 patch TRANSDERMAL QWEEK 07/02/17 [History Confirmed 07/02/17] [facility] Medical History CAD (coronary artery disease) (Chronic) Hyperlipidemia (Chronic) Benign essential HTN (Chronic) DM2 (diabetes mellitus, type 2) (Chronic) Hx of coronary artery disease (Chronic) History of coronary artery stent placement (Chronic 2012) Chronic renal insufficiency (Acute) Menieres disease (Acute) Sleep apnea (Acute) Syncope (Acute) Ulcerative colitis (Acute) Vertigo (Acute) Surgical History S/P CABG (coronary artery bypass graft) (Chronic 2012) H/O colectomy (Acute) H/O total hysterectomy (Acute) gallbdder removal (Acute) ileostomy (Acute) left thumb surgery (Acute) lysis of adhesion (Acute) vestibular nerve surgery for Meniere's (Acute) Family History Mother CVA (cerebral vascular accident) Diabetes Brother Heart disease of CAD at 65 Myocardial infarction Pancreatitis Father Cancer lymphomia Lymphoma Grandmother Myocardial infarction of CT in her 70s Sister COPD (chronic obstructive pulmonary disease) Social History Smoking Status: Former smoker how long ago did patient quit smokin, 0.5p/d second hand exposure: Yes alcohol intake: never substance use type: does not use caffeine: Yes Type: coffee eating out: 1-3 times/week what type of physical activity do you participate in: none seatbelt use: always do you feel safe at home: Yes HPI HPI Chief Complaint: 1 mo F/U wound on left side Details: AILYN MÉNDEZ, is a 56yo F who presents to the office today for follow-up. She has no acute complaints at this time. There have been no significant changes since the last visit. Abdominal pain is stable. She is scheduled to follow-up with the [facility] surgeon on Wednesday. She is also still making attempts to follow-up at [facility]. Blood sugar is still not optimally controlled. She was recently seen by ANGEL Maddox adjustments to her insulin was made. She is yet to implement this. ROS Const Constitutional: No chills, fatigue, fever(s), frequent falls, malaise, weakness, sleep problems or change in appetite Eyes Eyes: No blurry vision, change in vision, double vision, discharge or visual disturbances ENT ENT: No abnormal hearing, ear pain, ear pressure, tinnitus or dizziness/vertigo Resp Respiratory: No cough, shortness of breath or wheezing Cardio Cardiology: Positive for shortness of breath; no chest pain at rest, chest pain with exertion, dyspnea on exertion, generalized swelling, irregular heart rhythm, lightheadedness, orthopnea, fast heart rate or palpitations Gastro GI: Positive for abdominal pain (Chronic); no change in bowel habits, constipation, diarrhea, nausea/dyspepsia or vomiting Genitourinary-Female: No difficulty urinating, burning urination, painful urination, urinary incontinence, urinary frequency, urinary urgency, urinary hesitancy, urinary retention, Frequent nighttime urination/ nocturia, sexual problems, genital lesions, abnormal vaginal bleeding, pelvic pain, vaginal dryness, vaginal odor or Vaginal Itching Musc Musculoskeletal: Positive for back pain; no joint pain, joint swelling, limited range of motion, muscle weakness, numbness or tingling Skin Skin: Positive for wounds (on Rt side); no change in skin color, itching or rash Breast Breast: No breast lump or breast pain Neuro Neurology: No frequent falls, weakness, abnormal hearing, numbness, tingling, unsteady gait/balance, dizziness, loss of vision, memory loss or visual disturbances Psych Psychiatric: No memory loss, Positive for anxiety, No change in appetite, Positive for depression, No Thoughts of harming yourself/Others Endo Endocrine: No fatigue, heat intolerance, increased thirst/drinking, increased hunger or increased urination Aller/Imm Allergy/Immunologic: No wheezing, itchy eyes or seasonal allergy symptoms Jose/Lymp Hematologic/Lymphatic: No easy bleeding, easy bruising or enlarged lymph nodes Exam Const General: cooperative, no acute distress Orientation: alert, awake, oriented x3 HENMT Head: atraumatic, normocephalic, normal to inspection Ears: hearing grossly normal bilaterally Resp Effort AND Inspection: normal respiratory effort, able to speak in complete sentences Auscultation: Bilateral: Clear to Auscultation Cardio Rate: regular rate Rhythm: regular rhythm Heart Sounds: S1 normal, S2 normal GI Palpation: soft (Right upper quadrant tenderness), no hepatosplenomegaly Musc Musculoskeletal: No muscle weakness Skin General: dry skin Neuro General: alert, awake, oriented x3, moves all extremities, CN's II-XI intact bilaterally Extrem General: no clubbing, cyanosis or edema Psych Appearance: grossly normal Mood: congruent mood Affect: normal affect Assessment AND Plan 1. Abdominal pain R10.9 Plan Persistent. Scheduled for another fistulogram at the [facility] on Wednesday. Continue current medications/plan. Will follow. 2. Benign essential HTN I10 Plan Achieving better control. Continue current medications. Continue lifestyle modifications. Follow-up at next visit. 3. Type 2 diabetes mellitus with stage 3 chronic kidney disease, with long-term current use of insulin E11.9 Plan Still not optimally controlled. A1c ordered. Urine microalbumin also ordered. Continue current plan//follow-up. Orders Orders: 4. Shortness of breath R06.02 Plan Said to be worsening. Followed up with pulmonary and plan is for repeat pulmonary function test/CAT scan/walk test. Will follow. This note was generated with [employer] dictation software. It may contain incorrect words, spelling, and punctuation that were not noted in checking the note before signing. Plan Detail Other Orders Referrals: Coding Level of Care Code Off vis,est,level 4 Diagnoses Abdominal pain R10.9 Benign essential HTN I10 Type 2 diabetes mellitus with stage 3 chronic kidney disease, with long-term current use of insulin E11.9 Shortness of breath R06.02 07/02/17 1701 <Electronically signed by Shannan Mcgrath MD> Date Shannan Mcgrath MD Cosigner Signature: Date (if applicable) CC: PULMONARY VISIT REPORT Observed: 06/30/2017 Status: F Source: [place] 9:00 AM [facility] [place] [facility] [address] [place] [address]. [address] [place] [address] OFFICE VISIT Date of Service: 06/30/17 MR#: [id number] Acct: [id number] Name: AILYN MÉNDEZ Rep #: [id number] : 1960 Provider: Davide Baca MD Age/Sex: 56/F [place] [facility] [place] Status: Signed Assessment AND Plan 1. Shortness of breath R06.02 Plan Patient has been lost to follow-up for almost a year. Some concern as patient is reporting significant progression of disease despite continued smoking cessation. Patient's pulmonary function tests are more in line with a restrictive interstitial lung disease and COPD at this time. CT of the abdomen was reviewed and did not show significant basilar fibrotic changes. Will obtain a CT scan of the chest to rule out apical disease, such as sarcoidosis or hypersensitivity pneumonitis. Chest x-rays have not been impressive. We will also obtain an echocardiogram to evaluate for pulmonary hypertension. Patient does not have a significant bronchodilator response, so asthma is less of a concern. Continue current medications for now. Possible maintenance medications in the future. Obtain walking oximetry, CT without contrast and echocardiogram. Orders Orders: 2. ANKITA (obstructive sleep apnea) G47.33 Plan Patient is noncompliant with CPAP at this time. Did spend an extensive amount of time talking about possible behavioral strategies to increase compliance. After review, patient has agreed to attempting to use her CPAP at night while watching TV. Patient understands that controlling of CPAP will help with her hypertension and potentially prevent flash pulmonary edema from diastolic congestive heart failure. This will also increase patient's daytime energy level to allow for weight loss. Improved compliance with strategies discussed 3. Pulmonary hypertension I27.20 Plan Patient does have a history of pulmonary hypertension in the past that was thought to be type II. Patient does have preserved ejection fraction heart failure, but reports significantly high blood pressures and uncontrolled diabetes recently. Some concern for progression of disease. Will obtain an echocardiogram for quantification of pulmonary artery pressures. We will also obtain a walking oximetry to be sure patient is not developing exertional hypoxemia. Obtain walking oximetry and echocardiogram. Orders Orders: 4. Heart failure with preserved ejection fraction I50.30 Plan Patient does have a history of CHF with preserved ejection fraction, but chest x-rays are not showing any significant pleural effusion that would account for decreased volumes noted on pulmonary function testing. Patient is reporting elevated blood pressures intermittently and may be having an element of flash pulmonary edema. Patient is currently on optimal medical therapy per PCP and cardiology. Unclear if patient is having increase in pulmonary artery pressures secondary to worsening diastolic function. Did discuss with patient at length about the importance of daily weights and maintaining a low-salt diet. Patient voiced understanding. Defer to cardiology and PCP. Encourage low-salt diet. Plan Detail Follow Up 3 Months (BWA) HPI Shortness of breath: Chief Complaint: Review of test results Details: Patient is a 56-year-old female, currently under the care of Dr. Mcgrath, who presents for follow-up secondary recent test results. Patient has been lost to follow-up and has not been seen in almost a year. Over this course of time, patient reports significant worsening in overall shortness of breath. Patient reports that she has been to the ER multiple times since her last visit, but typically for pain syndrome and uncontrolled diabetes. Patient denies any history of ER visits or hospitalizations associated with breathing. Patient does have a nonhealing ulcer on her abdomen, which has been causing some difficulties and she is currently on 2 separate antibiotics for therapy. Patient reports that her dyspnea is much worse compared to previous. Patient is now having issues of shortness of breath sometimes at rest. Patient is only using Ventolin and states that she can use this 2 or 3 times per day. Patient states that she will sometimes make musical sounds but these are typically self-limited. Patient states these to happen more often when she is about to fall asleep. Patient reports that she has had significant difficulty with wearing CPAP therapy. Patient states that in the past she was 100% compliant, but recently has not been able to tolerate secondary to anxiety and a feeling of claustrophobia. Patient states she can only wear for an hour or so and compliance report shows only for temps over the last 30 days. Patient denies any epistaxis, hoarseness or pain at the interface site. Patient does report that she wakes herself up with weird noises. Patient is tired throughout the day, but is unclear if this is secondary to sleep apnea versus all my new medications. Testing personally reviewed with the patient Compliance report (May 2017): Only for attempts at CPAP 7 cm of water in the last 30 days with no significant leak noted. Complete PFT (06/02/2017): Mild restrictive ventilatory defect with a symmetric reduction diffusing capacity (FVC 65%, FEV1 68%, TLC 81%, DLCO 62%) Intake Vital Signs06/30/17 Height 5 ft 7 in 06/30/17 Weight: 92.986 kg Intake Visit Reasons: Shortness of breath Accompanied by: Self Allergies cinnamon [Cinnamon] Allergy (Verified 06/30/17 07:03) Anaphylaxis Influenza Virus Vaccines Allergy (Verified 06/30/17 07:03) Shortness of breath liraglutide [From Victoza] Allergy (Verified 06/30/17 07:03) Anaphylaxis metronidazole [From Flagyl] Allergy (Verified 06/30/17 07:03) Hives Metronidazole HCl [From Flagyl] Allergy (Verified 06/30/17 07:03) Hives Penicillins Allergy (Verified 06/30/17 07:03) Hives Sulfa (Sulfonamide Antibiotics) Allergy (Verified 06/30/17 07:03) Hives ciprofloxacin [From Cipro] Adverse Reaction (Verified 06/30/17 07:03) Nausea codeine Adverse Reaction (Verified 06/30/17 07:03) Stops Ileostomy dicyclomine HCl [From Bentyl] Adverse Reaction (Verified 06/30/17 07:03) Nausea metformin HCl [From Glucophage] Adverse Reaction (Verified 06/30/17 07:03) Nausea Ueoqvgv-Lif-Ixg Reductase Inhibitor Adverse Reaction (Verified 06/30/17 07:03) Nausea/joints ache Medications Aspirin [Aspirin, Baby] 81 mg PO DAILY@0800 01/21/15 [History Confirmed 06/30/17] Atorvastatin Calcium [Lipitor] 80 mg PO QHS 01/21/15 [History Confirmed 06/30/17] Clopidogrel Bisulfate [Plavix] 75 mg PO DAILY 01/21/15 [History Confirmed 06/30/17] Magnesium Oxide [Mag-Ox 400] 400 mg PO BID 01/21/15 [History Confirmed 06/30/17] Metoprolol Tartrate [Lopressor (beta esha)] 75 mg PO TID 01/21/15 [History Confirmed 06/30/17] Isosorbide DN [Isordil] 30 mg PO TID 09/03/16 [History Confirmed 06/30/17] Ondansetron HCl [Zofran] 4 mg PO Q8H PRN PRN #20 tab 09/05/16 [Rx Confirmed 06/30/17] Baclofen 10 mg PO QHS 11/24/16 [History Confirmed 06/30/17] Calcium Carbonate [Calcium] 600 mg PO BID 11/24/16 [History Confirmed 06/30/17] Cholecalciferol (Vitamin D3) [Vitamin D3] 2,000 unit PO DAILY 11/24/16 [History Confirmed 06/30/17] loperamide 2 mg tablet 2 mg PO .qid PRN tab 02/12/17 [History Confirmed 06/30/17] omeprazole 20 mg capsule,delayed release 20 mg PO DAILY 02/12/17 [History Confirmed 06/30/17] triamcinolone acetonide 0.1 % topical cream 1 applic TOPICAL BID 02/12/17 [History Confirmed 06/30/17] albuterol sulfate HFA 90 mcg/actuation aerosol inhaler 1 puff INHALATION Q6H PRN #1 inh 03/10/17 [Rx Confirmed 06/30/17] insulin aspart U-100 100 unit/mL subcutaneous pen See Label Instructions SC TID ml 03/23/17 [History Confirmed 06/30/17] miconazole nitrate 2 % topical powder 1 applic TOPICAL QDAY 03/23/17 [History Confirmed 06/30/17] tramadol 50 mg tablet 50 mg PO BID tab 05/05/17 [History Confirmed 06/30/17] Hydrocortisone 1 applic TOPICAL BID 06/02/17 [History Confirmed 06/30/17] fenofibrate micronized 200 mg capsule 200 mg PO QDAY 06/08/17 [History Confirmed 06/30/17] furosemide 40 mg tablet 40 mg PO QDAY #90 tab 06/08/17 [Rx Confirmed 06/30/17] nitroglycerin 0.4 mg sublingual tablet 0.4 mg SUBLINGUAL Q5M PRN #25 tab 06/08/17 [Rx Confirmed 06/30/17] pregabalin 50 mg capsule 50 mg PO BID cap 06/08/17 [History Confirmed 06/30/17] insulin glargine (U-100) 100 unit/mL (3 mL) subcutaneous pen 70 unit SC BID ml 06/11/17 [History Confirmed 06/30/17] lorazepam 0.5 mg tablet 0.5 mg PO QHS PRN #30 tab 06/11/17 [Rx Confirmed 06/30/17] Cephalexin [Cephalexin] 500 mg PO BID 06/29/17 [History Confirmed 06/30/17] Doxycycline Hyclate 100 mg PO BID 06/29/17 [History Confirmed 06/30/17] Duloxetine Hcl [Cymbalta] 20 mg PO BID 06/29/17 [History Confirmed 06/30/17] [facility] Medical History CAD (coronary artery disease) (Chronic) Hyperlipidemia (Chronic) Benign essential HTN (Chronic) DM2 (diabetes mellitus, type 2) (Chronic) Hx of coronary artery disease (Chronic) History of coronary artery stent placement (Chronic 2013) Chronic renal insufficiency (Acute) Menieres disease (Acute) Sleep apnea (Acute) Syncope (Acute) Ulcerative colitis (Acute) Vertigo (Acute) Surgical History S/P CABG (coronary artery bypass graft) (Chronic 2012) H/O colectomy (Acute) H/O total hysterectomy (Acute) gallbdder removal (Acute) ileostomy (Acute) left thumb surgery (Acute) lysis of adhesion (Acute) vestibular nerve surgery for Meniere's (Acute) Family History Mother CVA (cerebral vascular accident) Diabetes Brother Heart disease of CAD at 65 Myocardial infarction Pancreatitis Father Cancer lymphomia Lymphoma Grandmother Myocardial infarction of CT in her 70s Sister COPD (chronic obstructive pulmonary disease) Social History Smoking Status: Former smoker alcohol intake: never substance use type: does not use caffeine: Yes Type: coffee eating out: 1-3 times/week what type of physical activity do you participate in: none seatbelt use: always do you feel safe at home: Yes Review of Systems Const CONSTITUTIONAL: Positive daytime sleepiness, fatigue and headache(s); negative anorexia, body ache, chills, fever(s), night sweats, oral thrush, stops breathing during sleep, weight loss, sleeping in chair, weight loss, weight gain, frequent colds, seasonal allergies, other or orthopnea EETM Ear Nose Throat Mouth: Positive hearing normal, hoarseness, dry mouth in morning, headache(s), nasal discharge and post nasal drip; negative hard of hearing, change in vision, itchy eyes, eye pain, swallowing Difficulty, ear pain, nose bleed, mouth pain, nasal congestion, sinus pain, sinus pressure, sore throat or other Cardio Cardiovascular: Negative chest pain, chest pain at rest, chest pain with activity, irregular heart rhythm, edema, shortness of breath when lying down, palpitations, murmur or other Resp Respiratory: Positive as per HPI, shortness of breath shortness of breath: Positive with activity, worsening and other (at rest ), wheezing, chest congestion, chest tightness and inhalers; negative pain with cough, cough, pain on inspiration, increase use of rescue inhalers, snoring, apnea or other (reports makes weird noises when she is breathing ) Gastro Gastrointestional: Negative bloody stools, change in appetite, difficulty swallowing, reflux, hematemesis, melena stool, loose stool, constipation or other Genitourinary: Negative blood in urine, nocturia, pain with urination or other Musc Musculoskeletal: Positive back pain; negative body pain, neck pain or other Skin/Breast Skin/Breast: Negative dry skin, itching, rash, unusual bruising, breast lump or other Neuro Neurological: Negative restless legs, confusion, weakness or other Psych Psychocological: Positive anxiety and hopelessness; negative abnormal sleep pattern, thoughts of hurting self/others or other Lymph Lymphatic: Negative easy bleeding, easy bruising, swollen lymph nodes or other Exam Const Constitutional: Positive conversant, cooperative, in no acute respiratory distress, healthy appearing, well developed, well nourished, good hygiene, obese and dyspenic (With ambulation, but no conversational dyspnea appreciated); negative wearing supplemental oxygen Head Head: Positive normocephalic and atraumatic; negative cyanosis of lips/distal nose, frontal sinus tenderness or maxillary sinus tenderness Eyes Eye: Positive clear conjunctiva; negative nystagmus, scleral abnormality or cataract present Ears Ear: Positive hearing normal and external ears normal; negative hard of hearing Nose Nose: Positive external nose normal, septum normal and clear nasal discharge; negative epistaxis or nasal polyp Mouth Mouth: Positive post nasal drip, oral mucosae normal, poor dentition, crowded posterior oropharynx and no lesions; negative oral thrush present Mallampati Score: III: Mallampati Score Neck Neck: Positive normal visual inspection, full ROM, trachea midline and female neck greater than 37 cm (15 in); negative lymphadenopathy or JVD Chest Wall Chest: Positive normal inspection of the chest and symmetric chest movement; negative crepitus or tenderness Resp lung sounds: Positive clear to auscultation, good air exchange, wheeze present on forced exhalation and prolonged expiratory time; negative rhonchi, rales, use of accessory muscles or dullness to percussion Cardio Cardiac: Positive regular rate, regular rhythm, S1 normal and S2 normal; negative murmur, rub or gallop GI GI: Positive normal to inspection, normal bowel sounds and obese; negative distended, ascites or epigastric tenderness Genitourinary: Positive deferred Musc Musculoskeletal: Positive steady gait; negative using an assistive device for ambulation, kyphosis or scoliosis Skin Pulmonary Skin Exam: Positive intact and lesion (Abdominal nonhealing ulcer with clean bandage); negative rash, erythema or dermal atrophy Pulses Pulse: Yes radial pulses present Extremities Extremities: Yes capillary refill normal, No clubbing, No cyanosis, Yes edema (2+ lower extremity) Neuro Neurologic: Yes conversant, Yes no focal neuro deficits, Yes normal cognition, Yes cooperative, Yes normal concentration, Yes normal coordination, Yes understands questions Lymph Lymphatic: No lymphadenopathy Psych Appearance: Positive grossly normal Mental Status: Positive mental status grossly normal Mood: Positive congruent mood Affect: Positive normal affect Coding Level of Care Code Off vis,est,level 5 Diagnoses Shortness of breath R06.02 ANKITA (obstructive sleep apnea) G47.33 Pulmonary hypertension I27.20 Heart failure with preserved ejection fraction I50.30 06/30/17 0900 <Electronically signed by Davide Baca MD> Date Davide Baca MD Cosigner Signature: Date (if applicable) CC: Shannan Mcgrath MD ENDOCRINOLOGY VISIT Observed: 06/30/2017 Status: F Source: [place] REPORT 8:29 AM [facility] [address] [place] [address] [address] [place] [address] OFFICE VISIT Date of Service: 06/29/17 MR#: [id number] Acct: [id number] Name: AILYN MÉNDEZ Rep #: [id number] : 1960 Provider: Jane Saez NP Age/Sex: 56/F [place] [facility] [place] Status: Signed HPI History of present illness Ailyn Méndez is a 56 year old female who presents for follow up of diabetes type 2. Diagnosed in 1989 according to pt. She is currently following with [facility] dietary for the why weight program. She reports she is now eating 4-6 small meals daily . She feels better on small meals due to gastroparesis. Does have meal replacement for breakfast which only contains 16 grams of carb. Reports BG are high. Has received cortisone injection in her back for pain relief. She has open wound RUQ which was an old surgical scar that opened. Being seen by the wound center. She is concerned about it. Is doing dressing changes at home as well. Is also seeing a surgeon at [facility] main campus. Today patient complains of severe right quadrant abdominal pain and states she needs to go to ER. Has been present for a few days but is more severe today. No vomiting. Does have nausea. No fever or chills associated with pain. Is intermittent and sharp. At time of visit: -Pt denies symptoms of hypertensive emergency (CP,SOB,WOLF, or blurred vision) and hypotension(dizziness or lightheadedness) -Pt denies symptoms of hypoglycemia ( sweaty, confusion, anxiety, tremor, hunger, palpitations) and hyperglycemia ( polydipsia, polyuria) -Pt denies potential medication adverse effect. Hypoglycemia Aware of hypoglycemia: When awake Able to self treat low BG: Yes Frequent low Blood sugar: No Has supply of glucagon: No Currently continues on basaglar 66 in am and 76 in pm. Meal insulin 25 units per meal and sliding scale insulin which was given to her during a hospital stay. Checking BG at breakfast, lunch and dinner. Consuming 30 grams of carb for most meals. . She has been using her scale of 150-199=27, 200-259=32, 260-324=42, 325-324=37. Most recent BG readings for the last week have been 200 and above. Occ lower BG in the 140-170 range. This is with taking her insulin 3 times daily if needed. Pt denies difficulty with injections or self monitoring of BG. Denies any signs of infection or irritation at site of injections. Reports taking insulin as directed No meter for review. Has sent off to company for another replacement. Cardiopulmonary symptoms: Denies chest pain at rest, dyspnea on exertion, lightheadedness or myalgias GI symptoms: Denies constipation, diarrhea, nausea/dyspepsia or vomiting Other symptoms: Denies blurry vision or change in vision Self monitoring: Yes Dietary compliance: Diabetes: good Diabetes education in past year: Yes Glucose testing: demonstrates correct use of meter Weight and fatigue symptoms: Denies snoring Cardiopulmonary symptoms: Reports chest pain at rest; denies dyspnea on exertion or lightheadedness GI symptoms: Reports nausea/dyspepsia and vomiting; denies constipation or diarrhea Other symptoms: Denies blurry vision or change in vision Exam Const General: comfortable, no acute distress Nutritional Appearance: well nourished Orientation: oriented x3 HENMT Head: normal to inspection, normocephalic Ears: hearing grossly normal bilaterally Mouth: oral mucosae normal, moist mucous membranes Teeth and gingiva: dentition normal Resp Effort AND Inspection: normal respiratory effort, able to speak in complete sentences, symmetric chest movement Auscultation: Bilateral: Clear to Auscultation Cardio Rate: regular rate Rhythm: regular rhythm Heart Sounds: S1 normal, S2 normal Skin Rashes: rashes noted (left elbow and arm; psoriasis) Diabetic Foot Pulses: L dorsalis pedis pulse: normal, R dorsalis pedis pulse: normal Neuro General: gait normal, moves all extremities Cognition: normal cognition Speech: speech normal Gait: normal gait Extrem General: LLE Psych Appearance: well kempt Mental Status: mental status grossly normal Mood: congruent mood Affect: normal affect Speech and Movement: speech and movement normal Attitude: cooperative Thought Process: normal Thought Content: normal Judgment: judgment good Weight and fatigue symptoms: Denies snoring Cardiopulmonary symptoms: Reports chest pain at rest; denies dyspnea on exertion, lightheadedness or myalgias GI symptoms: Reports nausea/dyspepsia and vomiting; denies constipation or diarrhea Other symptoms: Denies blurry vision or change in vision Intake Vital Signs06/29/17 Height 5 ft 7 in 06/29/17 Weight: 203 lb 8 oz 06/29/17 Body Mass Index (BMI) 31.8 06/29/17 Blood Pressure 143/83 06/29/17 Blood Pressure Location Lt popliteal 06/29/17 Blood Pressure Position Sitting Intake Visit Reasons: 1 M FU, Diabetes Mellitus 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 Accompanied by: Self Is patient in pain?: No Allergies cinnamon [Cinnamon] Allergy (Verified 06/30/17 07:03) Anaphylaxis Influenza Virus Vaccines Allergy (Verified 06/30/17 07:03) Shortness of breath liraglutide [From Victoza] Allergy (Verified 06/30/17 07:03) Anaphylaxis metronidazole [From Flagyl] Allergy (Verified 06/30/17 07:03) Hives Metronidazole HCl [From Flagyl] Allergy (Verified 06/30/17 07:03) Hives Penicillins Allergy (Verified 06/30/17 07:03) Hives Sulfa (Sulfonamide Antibiotics) Allergy (Verified 06/30/17 07:03) Hives ciprofloxacin [From Cipro] Adverse Reaction (Verified 06/30/17 07:03) Nausea codeine Adverse Reaction (Verified 06/30/17 07:03) Stops Ileostomy dicyclomine HCl [From Bentyl] Adverse Reaction (Verified 06/30/17 07:03) Nausea metformin HCl [From Glucophage] Adverse Reaction (Verified 06/30/17 07:03) Nausea Qmnanjc-Gsd-Qsk Reductase Inhibitor Adverse Reaction (Verified 06/30/17 07:03) Nausea/joints ache Medications Aspirin [Aspirin, Baby] 81 mg PO DAILY@0800 01/21/15 [History Confirmed 06/30/17] Atorvastatin Calcium [Lipitor] 80 mg PO QHS 01/21/15 [History Confirmed 06/30/17] Clopidogrel Bisulfate [Plavix] 75 mg PO DAILY 01/21/15 [History Confirmed 06/30/17] Magnesium Oxide [Mag-Ox 400] 400 mg PO BID 01/21/15 [History Confirmed 06/30/17] Metoprolol Tartrate [Lopressor (beta esha)] 75 mg PO TID 01/21/15 [History Confirmed 06/30/17] Isosorbide DN [Isordil] 30 mg PO TID 09/03/16 [History Confirmed 06/30/17] Ondansetron HCl [Zofran] 4 mg PO Q8H PRN PRN #20 tab 09/05/16 [Rx Confirmed 06/30/17] Baclofen 10 mg PO QHS 11/24/16 [History Confirmed 06/30/17] Calcium Carbonate [Calcium] 600 mg PO BID 11/24/16 [History Confirmed 06/30/17] Cholecalciferol (Vitamin D3) [Vitamin D3] 2,000 unit PO DAILY 11/24/16 [History Confirmed 06/30/17] loperamide 2 mg tablet 2 mg PO .qid PRN tab 02/12/17 [History Confirmed 06/30/17] omeprazole 20 mg capsule,delayed release 20 mg PO DAILY 02/12/17 [History Confirmed 06/30/17] triamcinolone acetonide 0.1 % topical cream 1 applic TOPICAL BID 02/12/17 [History Confirmed 06/30/17] albuterol sulfate HFA 90 mcg/actuation aerosol inhaler 1 puff INHALATION Q6H PRN #1 inh 03/10/17 [Rx Confirmed 06/30/17] insulin aspart U-100 100 unit/mL subcutaneous pen See Label Instructions SC TID ml 03/23/17 [History Confirmed 06/30/17] miconazole nitrate 2 % topical powder 1 applic TOPICAL QDAY 03/23/17 [History Confirmed 06/30/17] tramadol 50 mg tablet 50 mg PO BID tab 05/05/17 [History Confirmed 06/30/17] Hydrocortisone 1 applic TOPICAL BID 06/02/17 [History Confirmed 06/30/17] fenofibrate micronized 200 mg capsule 200 mg PO QDAY 06/08/17 [History Confirmed 06/30/17] furosemide 40 mg tablet 40 mg PO QDAY #90 tab 06/08/17 [Rx Confirmed 06/30/17] nitroglycerin 0.4 mg sublingual tablet 0.4 mg SUBLINGUAL Q5M PRN #25 tab 06/08/17 [Rx Confirmed 06/30/17] pregabalin 50 mg capsule 50 mg PO BID cap 06/08/17 [History Confirmed 06/30/17] insulin glargine (U-100) 100 unit/mL (3 mL) subcutaneous pen 70 unit SC BID ml 06/11/17 [History Confirmed 06/30/17] lorazepam 0.5 mg tablet 0.5 mg PO QHS PRN #30 tab 06/11/17 [Rx Confirmed 06/30/17] Cephalexin [Cephalexin] 500 mg PO BID 06/29/17 [History Confirmed 06/30/17] Doxycycline Hyclate 100 mg PO BID 06/29/17 [History Confirmed 06/30/17] Duloxetine Hcl [Cymbalta] 20 mg PO BID 06/29/17 [History Confirmed 06/30/17] Is last menstrual period known: No Post menopausal: Yes Patient : No Nurse's Note: blood sugars : low : 143 high : 400+ PFSH Medical History CAD (coronary artery disease) (Chronic) Hyperlipidemia (Chronic) Benign essential HTN (Chronic) DM2 (diabetes mellitus, type 2) (Chronic) Hx of coronary artery disease (Chronic) History of coronary artery stent placement (Chronic 2012) Chronic renal insufficiency (Acute) Menieres disease (Acute) Sleep apnea (Acute) Syncope (Acute) Ulcerative colitis (Acute) Vertigo (Acute) Surgical History S/P CABG (coronary artery bypass graft) (Chronic 2012) H/O colectomy (Acute) H/O total hysterectomy (Acute) gallbdder removal (Acute) ileostomy (Acute) left thumb surgery (Acute) lysis of adhesion (Acute) vestibular nerve surgery for Meniere's (Acute) Family History Mother CVA (cerebral vascular accident) Diabetes Brother Heart disease of CAD at 65 Myocardial infarction Pancreatitis Father Cancer lymphomia Lymphoma Grandmother Myocardial infarction of CT in her 70s Sister COPD (chronic obstructive pulmonary disease) Social History Smoking Status: Former smoker how long ago did patient quit smokin, 0.5p/d second hand exposure: Yes alcohol intake: never substance use type: does not use caffeine: Yes Type: coffee eating out: 1-3 times/week what type of physical activity do you participate in: none seatbelt use: always do you feel safe at home: Yes ROS Const Constitutional: Positive for fatigue; no anorexia, body ache, chills, fever(s), frequent falls, decreased energy, malaise, night sweats, weakness, weight change, sleep problems, abnormal sleep pattern, change in appetite, other, headache(s), snoring or excessive sweating Eyes Eyes: No blurry vision, change in vision, double vision, discharge, dry eyes, bulging eyes, floaters, visual disturbances, eye pain, light sensitivity, spots in vision, tunnel vision or other ENT ENT: No abnormal hearing, ear pain, ear discharge, ear pressure, hearing loss, tinnitus, dizziness/vertigo, balance problems, nosebleed/epistaxis, nasal congestion, nasal obstruction, nose pain, sinus pressure, sinus pain, nasal discharge, post nasal drip, headache(s), facial pain, dental pain, dry mouth, bad breath, hoarseness, lip swelling, mouth lesions, mouth pain, sore throat, tongue swelling, throat swelling, other, difficulty swallowing or neck pain Resp Respiratory: Positive for shortness of breath; no cough, change in phlegm color, chest congestion, excessive phlegm production, hemoptysis, pain on inspiration, pain with cough, snoring, stridor, wheezing or other Cardio Cardiology: Positive for chest pain at rest and chest pain with exertion; no leg pain with exertion, excessive sweating, shortness of breath, dyspnea on exertion, generalized swelling, irregular heart rhythm, lightheadedness, orthopnea, radiating jaw, neck or arm pain, fast heart rate, slow heart rate, palpitations or other Gastro GI: Positive for abdominal pain, nausea/dyspepsia, vomiting and heartburn; no belching, bloating, change in bowel habits, change in stool character, coffee ground emesis, constipation, cramping, diarrhea, difficulty swallowing, feeling full early, excessive flatus, incontinent of stools, Vomiting blood/hematemesis, blood in stool, loose stools, Black,tarry stools, pain with swallowing or other Genitourinary-Female: No difficulty urinating, burning urination, painful urination, urinary incontinence, urinary frequency, urinary urgency, urinary hesitancy, urinary retention, blood in urine, Frequent nighttime urination/ nocturia, post void dribbling, suprapubic fullness, side pain, sexual problems, genital lesions, genital itching, hot flashes, abnormal periods, abnormal vaginal bleeding, absent period, painful periods, light periods, heavy periods, difficulty getting , painful intercourse, pelvic pain, vaginal dryness, vaginal odor, Vaginal Itching or other Musc Musculoskeletal: No abnormal walking, joint pain, back pain, deformity, joint swelling, limited range of motion, loss of height, muscle cramps, muscle weakness, decreased muscle mass, body aches, neck pain, numbness, radiating pain into limb, stiffness, tingling or other Skin Skin: Positive for wounds (R side abdominal); no acne, hair loss, change in hair, nail changes, boil, change in skin color, dry skin, redness, excessive hair growth, yellowing of the skin, lesions, itching, rash, skin pain, skin ulcer, sores, skin swelling or other Breast Breast: No other Neuro Neurology: No frequent falls, weakness, visual disturbances, abnormal hearing, headache(s), abnormal walking, numbness or tingling Psych Psychiatric: No abnormal sleep pattern, No change in appetite Endo Endocrine: Positive for fatigue; no other or excessive sweating Aller/Imm Allergy/Immunologic: No lip swelling, tongue swelling, throat swelling, wheezing or itchy eyes Assessment AND Plan Problems 1. Type 2 diabetes mellitus with stage 3 chronic kidney disease, with long-term current use of insulin E11.9 2. Hyperlipidemia, unspecified hyperlipidemia type E78.5 3. Benign essential HTN I10 4. Depression, unspecified depression type F32.9 Plan Increase lantus to 74 untis in am. Continue to titrate every 3 days until BG note improvement. Goal is 150 BG Will take to ER for abdominal pain as equested by patient. RTC 1 month Orders Orders: Plan Detail Additional Comments 1. Please schedule follow up in 1 month 2. Lab work one week before appointment. 3. Discussed importance of regular exercise and recommend starting or continuing a regular exercise program for good health. 4. The patient was encouraged to lose weight for good health 5. The importance of monitoring blood sugar regularly was reviewed. 6. The importance of monitoring the HBA1c level regularly was reviewed. 7. The importance of prper foot care and regularly checking feet to prevent sores and loss of limbs was reviewed. 8. The importance of keeping BP at or below 130/80 to prevent stroke, heart attacks, kidney failure, blindness was reviewed. Spent approximately 30 minutes with patient with over 50% of time spent in discussion and counseling regarding medication adjustment, symptoms and treatment of hypoglycemia, diet adherence, and checking BG before driving. Coding Level of Care Code Off vis,est,level 4 Diagnoses Type 2 diabetes mellitus with stage 3 chronic kidney disease, with long-term current use of insulin E11.9 Hyperlipidemia, unspecified hyperlipidemia type E78.5 Hyperlipidemia type: unspecified Benign essential HTN I10 Depression, unspecified depression type F32.9 Depression Type: unspecified Time Spent (min) 30 06/30/17 0829 <Electronically signed by Jane LEOS> Date Jane LEOS Cosigner Signature: Date (if applicable) CC: EMERGENCY DEPARTMENT Observed: 06/29/2017 Status: F Source: [place] SUMMARY 12:35 PM [facility] Medical Records Department [address] [place] [id number] Emergency Department Summary 06/29/17 1038 MR#: [id number] Acct: [id number] Name: AILYN MÉNDEZ Rep #: [id number] : 1960 56 From: En Duke MD PCP: Shannan Mcgrath MD Status: REG ER - ER Visit Summary Date of Service: 06/29/17 Chief Complaint: Upper abdominal pain History of Present Illness: The patient is a 56 F who presents with worsening right upper quadrant abdominal pain for the past week. This is associated with nausea without vomiting or diarrhea. She is status post cholecystectomy one year ago. She does have history of pancreatitis. She denies fever, chills night sweats. She denies cough, shortness of breath or difficulty breathing. She does have history of COPD. She denies chest pain. She denies pain in her extremities. She denies dysuria, frequency, urgency or hematuria. There is no history of renal ureterolithiasis. There is no history of trauma. She denies any rash or lesions. She has a chronically poorly healing abdominal wound right lower quadrant. She states she has never had pain like this before. Please read written note for complete detail Physical Examination: Blood pressure is elevated 153/70. She is afebrile and she is not hypoxic. She appears uncomfortable. Head is atraumatic normocephalic. Pupils are equal round reactive. Extraocular muscles are intact. TMs are pearly white with landmarks noted. Nares patent with no drainage. Posterior pharynx without erythema or exudate. Uvula is midline. There is no dysphonia or dysphasia. Trachea is midline. There is no stridor with auscultation of the neck. Heart is regular without murmur, gallop or rub. S1 and S2 are normal. Lungs are clear to auscultation with good movement of air bilaterally. There is no reproducible chest pain. Abdomen is remarkable for multiple well-healed scars. She has a colostomy left lower quadrant. There is stool and gas in the colostomy bag. There is no CVA tenderness. She has sniffing and tenderness in the right upper quadrant/epigastric area. There are no lesions to suggest herpes varicella-zoster. Lower extremity exam is unremarkable i.e. no swelling, discoloration, leg vein distention, palpable cords test on the distribution of deep venous system. She has a depressed affect. Neuro exam is nonfocal. Test Results: CBC is unremarkable. BMP is marked for glucose of 188 and creatinine of 1.3. Liver profile is unremarkable. Urine is unremarkable. Emergency Department Course and Treatment: IV was established and she was medicated with 4 mg of Zofran informal grams of morphine. To evaluate her symptoms a CBC, hepatic and lipase were obtained. Because there is history of end-stage renal disease BUN and creatinine were obtained as well as UA since there is equivocal discomfort with deep palpation over the right kidney and CVA tenderness. Treatment Plan: I went in to reevaluate patient at 12: 3 0 she is in no distress. After I was in the room for a minute or 2 she began to pant and have outward signs of discomfort. Patient was informed the cause of her abdominal pain is unknown. Disposition: Discharged home to follow-up with PCP Impression: 1. Acute right upper quadrant abdominal pain of unknown etiology 2. Hyperglycemia type II diabetic 3. Chronic end-stage renal disease 4. History of hypertension 5. History coronary disease with CHF This note was generated with [employer] software. It may contain incorrect words, spelling, and punctuation that were not noted in review of the chart prior to signing ED Disposition - Plan for ED Patient: Disposition: Home or Assisted Living Chief Complaint: Abd Pain Instructions: ED Abdominal Pain Unkn Cause Referrals: Shannan Mcgrath MD [Primary Care Provider] - 3-5 Days if not improving What to do if you have Problems For any increased pain, shortness of breath, bleeding, nausea or vomiting, chest pain, or any unexpected problems, contact your Primary Care Provider. Call [facility] ([phone]) or report to the closest Emergency Room. Call 911 if necessary. 06/29/17 1235 <Electronically signed by En Duke MD> Date En Duke MD Cosigner Signature (If Indicated): Date CC: Shannan Mcgrath MD URINALYSIS, COMPLETE Collected: 06/29/2017 Status: F Source: [place] 11:20 AM [facility] [place] [facility] Order Comment: Order Date: 06/29/17 How was Urine Obtained? CLEAN CATCH TYPE CODE TESTS RESULT OUT OF RANGE REFERENCE UNITS LAB L400.3000 Yellow COLOR Normal Yellow LAB L400.3050 Clear Normal CLARITY Sl. Cloudy LAB L400.3200 Normal mg/dl High GLUCOSE, UR 100 LAB L400.3300 Negative mg/dL Normal BILIRUBIN URINE Negative LAB L400.3400 Negative mg/dl Normal KETONE UR Negative LAB L400.3465 1.002-1.030 Normal SP.GR. DIPSTX 1.025 LAB L400.3550 5.0 - 8.0 pH UR Normal 6.0 LAB L400.3600 Negative mg/dl High PROT 30 DIPSTX LAB L400.3700 Normal mg/dl Normal UROBILI Normal LAB L400.3750 Negative Normal NITRITE UR Negative LAB L400.3780 Negative /ul Normal OCCULT BLOOD-UR Negative LAB L400.3800 Negative /ul LEUK Normal ESTERASE Negative LAB L400.4050 0-5 /hpf WBC 0 Normal SEEN LAB L400.4100 0-5 /hpf 0 Normal RBC-UA SEEN LAB L400.4150 5-10 /hpf SQUAM Normal EPI 0-5 SEEN LAB L400.4300 None Seen /hpf 1+ Normal BACTERIA LAB L400.4350 <or=2+ /hpf 0 Normal MUCUS, URINE SEEN Performed By: #### L400.0001 #### [facility] [place], [address] CBC W/DIFF, AUTOMATED Collected: 06/29/2017 Status: F Source: [place] 10:45 AM [facility] TYPE CODE TESTS RESULT OUT OF RANGE REFERENCE UNITS LAB L100.1000 4.4-11.0 K/mm3 Normal WBC 8.5 LAB L100.1200 4.2-5.4 M/mm3 Normal RBC 4.74 LAB L100.1300 12.0-15.0 g/dl Normal HGB 13.7 LAB L100.1400 37-47 % Normal HCT 42.0 LAB L100.1500 81-99 fL Normal MCV 88.6 LAB L100.1600 27.0-32.0 pg Normal MCH 28.9 LAB L100.1700 32-36 g/gl Normal MCHC 32.6 LAB L100.1810 11.6-14.6 % High RDW CV 15.0 LAB L100.1820 35.1-43.9 fl High RDW SD 48.9 LAB L100.1900 150-450 K/mm3 Normal PLT 183 LAB L100.2000 6.2-12.0 fl High MPV 12.6 LAB L100.2100 47-70 % Normal NEUT% 64.4 LAB L100.2200 19-41 % Normal LY% 23.9 LAB L100.2300 0-10 % Normal MONO% 5.3 LAB L100.2400 0-5 % Normal EO% 4.1 LAB L100.2500 0-1 % Normal BASO% 0.6 LAB L100.2550 0.0-0.9 % High IM GRAN % 1.700 Result Comment: IG% - Immature Granulocytes (promyelocytes, myelocytes and metamyelocytes) > 1% indicates that a LEFT SHIFT is Present. LAB L100.2620 2.0-7.7 X10 3/uL Normal Absolute Neut 5.5 LAB L100.2720 0.83-4.51 X10 3/ul Normal Absolute Lymph 2.02 Performed By: #### L100.0100 #### [facility] [address] [place], [place], [id number] BASIC METABOLIC Collected: 06/29/2017 Status: F Source: [place] PROFILE (BMP) 10:45 AM [facility] TYPE CODE TESTS RESULT OUT OF RANGE REFERENCE UNITS LAB L501.0100 74-106 mg/dL High GLU 188 Result Comment: Fasting Glucose result greater than or equal to 126 mg/dL suggests DIABETES MELLITUS per A.D.A. criteria. Please note revised GLUCOSE reference range effective 2017. LAB L501.1000 7-18 mg/dL High BUN 35 LAB L501.1100 0.55-1.02 mg/dL High CREAT,SERUM 1.30 Result Comment: The validity of the calculated GFR AND GFRAA in patients over 70 years has not been determined. Clinical correlation is essential. LAB L501.1110 >60 mL/min Low EST GFR 45 Result Comment: Non- GFR Calc LAB L501.1115 >60 mL/min Low EST GFR - AA 54 Result Comment: GFR Calc LAB L501.1255 ml/min Normal Estimated CRCL 45.87 LAB L501.1300 10-20 RATIO High BUN/CRE 26.9 LAB L501.2200 8.5-10 mg/dL Normal .1 CA 9.1 LAB L501.5300 136-14 mmol/L Normal 5 NA 140 LAB L501.5600 3.5-5. mmol/L Normal 1 K 4.2 LAB L501.5900 98-107 mmol/L Normal CL 106 LAB L501.6100 21.0-3 mmol/L Normal 2.0 CO2 26.0 LAB L501.6200 5-15 Normal GAP 8 Performed By: #### L500.2500, L500.3400, L501.2400 #### [facility] [address] [place], [place], [id number] LIVER PROFILE Collected: 06/29/2017 Status: F Source: [place] 10:45 AM [facility] TYPE CODE TESTS RESULT OUT OF RANGE REFERENCE UNITS LAB L501.1500 6.4-8.2 g/dL Normal T PROT 7.0 LAB L501.1800 3.2-5.0 g/dL Normal ALB 3.2 LAB L501.1950 2.2-4.2 g/dL Normal GLOB 3.8 LAB L501.4100 15-37 U/L Normal AST 36 LAB L501.4305 45-117 U/L High ALK P 143 LAB L501.4405 13-56 U/L Normal ALT 39 LAB L501.4600 0.20-1.00 mg/dL Normal T BILI 0.40 LAB L501.4700 0.00-0.30 mg/dL Normal D BILI 0.14 Performed By: #### L500.2500, L500.3400, L501.2400 #### [facility] [address] [place], [address] AMYLASE Collected: 06/29/2017 Status: F Source: [place] 10:45 AM [facility] TYPE CODE TESTS RESULT OUT OF RANGE REFERENCE UNITS LAB L501.2400 25-115 U/L Normal SHAUNA 56 Performed By: #### L500.2500, L500.3400, L501.2400 #### [facility] [address] [place], [address] INTERNAL MEDICINE Observed: 06/18/2017 Status: F Source: [place] OFFICE VISIT 4:58 PM [facility] [address] [place] [address] [place] [address] OFFICE VISIT Date of Service: 06/11/17 MR#: [id number] Acct: [id number] Name: AILYN MÉNDEZ Rep #: [id number] : 1960 Provider: Shannan Mcgrath MD Age/Sex: 56/F [place] [facility] [place] Status: Signed Intake Vital Signs06/11/17 Height 5 ft 7 in Intake Visit Reasons: see note Chief Complaint: new wound on left side Is patient in pain?: Yes (abdomen) Pain scale (1-10): 6 Allergies cinnamon [Cinnamon] Allergy (Verified 06/08/17 10:32) Anaphylaxis Influenza Virus Vaccines Allergy (Verified 06/08/17 10:32) Shortness of breath liraglutide [From Victoza] Allergy (Verified 06/08/17 10:32) Anaphylaxis metronidazole [From Flagyl] Allergy (Verified 06/08/17 10:32) Hives Metronidazole HCl [From Flagyl] Allergy (Verified 06/08/17 10:32) Hives Penicillins Allergy (Verified 06/08/17 10:32) Hives Sulfa (Sulfonamide Antibiotics) Allergy (Verified 06/08/17 10:32) Hives ciprofloxacin [From Cipro] Adverse Reaction (Verified 06/08/17 10:32) Nausea codeine Adverse Reaction (Verified 06/08/17 10:32) Stops Ileostomy dicyclomine HCl [From Bentyl] Adverse Reaction (Verified 06/08/17 10:32) Nausea metformin HCl [From Glucophage] Adverse Reaction (Verified 06/08/17 10:32) Nausea Edgzyun-Fqs-Lgv Reductase Inhibitor Adverse Reaction (Verified 06/08/17 10:32) Nausea/joints ache Medications Aspirin [Aspirin, Baby] 81 mg PO DAILY@0800 01/21/15 [History Confirmed 06/08/17] Atorvastatin Calcium [Lipitor] 80 mg PO QHS 01/21/15 [History Confirmed 06/08/17] Clopidogrel Bisulfate [Plavix] 75 mg PO DAILY 01/21/15 [History Confirmed 06/08/17] Magnesium Oxide [Mag-Ox 400] 400 mg PO BID 01/21/15 [History Confirmed 06/08/17] Metoprolol Tartrate [Lopressor (beta esha)] 75 mg PO TID 01/21/15 [History Confirmed 06/08/17] Isosorbide DN [Isordil] 30 mg PO TID 09/03/16 [History Confirmed 06/08/17] Ondansetron HCl [Zofran] 4 mg PO Q8H PRN PRN #20 tab 09/05/16 [Rx Confirmed 06/08/17] Baclofen 10 mg PO QHS 11/24/16 [History Confirmed 06/08/17] Calcium Carbonate [Calcium] 600 mg PO BID 11/24/16 [History Confirmed 06/08/17] Cholecalciferol (Vitamin D3) [Vitamin D3] 2,000 unit PO DAILY 11/24/16 [History Confirmed 06/08/17] loperamide 2 mg tablet 2 mg PO .qid PRN tab 02/12/17 [History Confirmed 06/08/17] omeprazole 20 mg capsule,delayed release 20 mg PO DAILY 02/12/17 [History Confirmed 06/08/17] triamcinolone acetonide 0.1 % topical cream 1 applic TOPICAL BID 02/12/17 [History Confirmed 06/08/17] albuterol sulfate HFA 90 mcg/actuation aerosol inhaler 1 puff INHALATION Q6H PRN #1 inh 03/10/17 [Rx Confirmed 06/08/17] insulin aspart U-100 100 unit/mL subcutaneous pen See Label Instructions SC TID ml 03/23/17 [History Confirmed 06/08/17] miconazole nitrate 2 % topical powder 1 applic TOPICAL QDAY 03/23/17 [History Confirmed 06/08/17] tramadol 50 mg tablet 50 mg PO BID tab 05/05/17 [History Confirmed 06/08/17] Hydrocortisone 1 applic TOPICAL BID 06/02/17 [History Confirmed 06/08/17] fenofibrate micronized 200 mg capsule 200 mg PO QDAY 06/08/17 [History Confirmed 06/08/17] furosemide 40 mg tablet 40 mg PO QDAY #90 tab 06/08/17 [Rx Confirmed 06/08/17] nitroglycerin 0.4 mg sublingual tablet 0.4 mg SUBLINGUAL Q5M PRN #25 tab 06/08/17 [Rx Confirmed 06/08/17] pregabalin 50 mg capsule 50 mg PO BID cap 06/08/17 [History Confirmed 06/08/17] insulin glargine (U-100) 100 unit/mL (3 mL) subcutaneous pen 70 unit SC BID ml 06/11/17 [History Confirmed 06/11/17] lorazepam 0.5 mg tablet 0.5 mg PO QHS PRN #30 tab 06/11/17 [Rx Confirmed 06/11/17] PFSH Medical History CAD (coronary artery disease) (Chronic) Hyperlipidemia (Chronic) Benign essential HTN (Chronic) DM2 (diabetes mellitus, type 2) (Chronic) Hx of coronary artery disease (Chronic) History of coronary artery stent placement (Chronic 2012) Chronic renal insufficiency (Acute) Menieres disease (Acute) Sleep apnea (Acute) Syncope (Acute) Ulcerative colitis (Acute) Vertigo (Acute) Surgical History S/P CABG (coronary artery bypass graft) (Chronic 2012) H/O colectomy (Acute) H/O total hysterectomy (Acute) gallbdder removal (Acute) ileostomy (Acute) left thumb surgery (Acute) lysis of adhesion (Acute) vestibular nerve surgery for Meniere's (Acute) Family History Mother CVA (cerebral vascular accident) Diabetes Brother Heart disease of CAD at 65 Myocardial infarction Pancreatitis Father Cancer lymphomia Lymphoma Grandmother Myocardial infarction of CT in her 70s Sister COPD (chronic obstructive pulmonary disease) Social History Smoking Status: Former smoker alcohol intake: never substance use type: does not use caffeine: Yes Type: coffee eating out: 1-3 times/week what type of physical activity do you participate in: none seatbelt use: always do you feel safe at home: Yes HPI HPI Chief Complaint: new wound on left side Details: AILYN MÉNDEZ, is a 56yo F who presents to the office today due to concerns of new left-sided wound. 5 days prior to presentation she states that she noted bleeding around her stoma site. Bleeding was said to have stopped after putting tape on it. She denies any history of trauma but it is of note that she has had several abdominal concerns. She currently follows up with a general surgeon at the [facility] however the patient is not satisfied with her care. She was scheduled for a repeat CAT scan but this was canceled due to insurance issues. She also reports increased lethargy and somnolence which is been ongoing. She has a history of sleep apnea but has not been using her CPAP due to increased anxiety when she has the mask over her face. Patient is also concerned about worsening psoriasis. She has not been seen by a revenue audit clerk. She is currently on hydrocortisone for her face and triamcinolone. ROS Const Constitutional: No weight change, body ache, chills, fatigue, sleep problems, fever(s), change in appetite, snoring, weakness, frequent falls, headache(s) or excessive sweating Eyes Eyes: No change in vision, eye pain, light sensitivity or blurry vision ENT ENT: Positive for ear pain and sore throat; no headache(s), abnormal hearing, tinnitus, nasal congestion or neck pain Resp Respiratory: Positive for shortness of breath; no snoring, cough or wheezing Cardio Cardiology: No excessive sweating, chest pain with exertion, shortness of breath, dyspnea on exertion, palpitations, orthopnea or lightheadedness Gastro GI: Positive for abdominal pain; no change in bowel habits, constipation, diarrhea, vomiting, nausea/dyspepsia or cramping Musc Musculoskeletal: Positive for numbness (hands) and tingling; no neck pain, abnormal walking, joint pain, back pain or limited range of motion Skin Skin: Positive for wounds (open wound on left side); no redness, dry skin, itching, lesions or rash Neuro Neurology: Positive for numbness (hands) and tingling; no weakness, frequent falls, headache(s), abnormal hearing, abnormal walking, abnormal speech, dizziness or memory loss Psych Psychiatric: No change in appetite, No memory loss, Positive for anxiety, Positive for depression, No Thoughts of harming yourself/Others Endo Endocrine: No fatigue, excessive sweating, cold intolerance, increased thirst/drinking, heat intolerance, flushing or increased hunger Aller/Imm Allergy/Immunologic: No wheezing, itchy eyes, hives or seasonal allergy symptoms Jose/Lymp Hematologic/Lymphatic: No easy bleeding, easy bruising or enlarged lymph nodes Exam Const General: cooperative, no acute distress Orientation: alert, awake, oriented x3 HENMT Head: atraumatic, normocephalic Ears: hearing grossly normal bilaterally Resp Effort AND Inspection: normal respiratory effort, able to speak in complete sentences Auscultation: Bilateral: Clear to Auscultation Cardio Rate: regular rate Rhythm: regular rhythm Heart Sounds: S1 normal, S2 normal GI Other: No opening of bleeding noted around the stoma site. However dried/crusted blood noted no opening or discharge appreciated even on mild/gentle probing. Skin Other: Areas of plaque-like maculopapular lesions noted diffusely especially on the nose elbows and lower extremity. Neuro General: alert, awake, oriented x3, moves all extremities, CN's II-XI intact bilaterally Extrem General: no pedal edema Psych Appearance: grossly normal Mood: congruent mood Affect: normal affect Assessment AND Plan 1. Abdominal pain R10.9 Plan Patient has had progressive abdominal issues over the last couple of months/years. She had concerns of a possible new left-sided peristomal wound however no bleeding or opening appreciated on examination. Bleeding from a possibly from a skin tear. Was recently seen in emergency room and had an abdominopelvic CAT scan which was suggestive of a peristomal hernia. Patient has been following up at the [facility] with a general surgeon and plan was for a repeat CAT scan however this was denied by her insurance. She however is dissatisfied with the service she is receiving there and would like a second opinion. Referred to [facility]. ( Dr. Kaleb Li ) Advised to call the office with any further bleeding or concerns. Follow-up in 3 weeks. 2. Dehiscence of operative wound, subsequent encounter T81.31XA Plan Plan as above. Will follow. Orders Referrals: 3. Psoriasis L40.9 Plan Patient with worsening psoriasis and new concerning skin lesions. Has not been seen by a revenue audit clerk. Referred to Dr. Naima West [facility]. Will follow. Orders Referrals: 4. Obstructive sleep apnea G47.33 Plan Patient reports increased somnolence and lethargy which I believe is from poorly controlled sleep apnea due to inability to use her CPAP due to anxiety. Prescription for Lorazepam 0.5 mg nightly given. Follow-up in 3 weeks. This note was generated with [employer] dictation software. It may contain incorrect words, spelling, and punctuation that were not noted in checking the note before signing. Plan Detail Other Orders Referrals: Other Medications New: Discontinued: Coding Level of Care Code Off vis,est,level 4 Diagnoses Abdominal pain R10.9 Dehiscence of operative wound, subsequent encounter T81.31XA Psoriasis L40.9 Obstructive sleep apnea G47.33 06/18/17 1128 <Electronically signed by Shannan Mcgrath MD> Date Shannan Mcgrath MD Cosigner Signature: Date (if applicable) CC: CARDIOLOGY VISIT Observed: 06/08/2017 Status: F Source: [place] REPORT 10:53 AM [facility] [place] [facility] [address] [place] [address] [address] [place] [address] OFFICE VISIT Date of Service: 06/08/17 MR#: [id number] Acct: [id number] Name: AILYN MÉNDEZ Rep #: [id number] : 1960 Provider: Fish Stone MD Age/Sex: 56/F [place] [facility] [place] Status: Signed HPI HPI Chief Complaint: Follow-up from ER visit. Details: AILYN MÉNDEZ, is a 56 F who presents to the office today for follow-up visit. She had been in the ER recently with noncardiac chest discomfort but had complained of mild midsternal chest discomfort as well an EKG was done it was thought that it was different from before and cardiology was called for evaluation. As remember history is a lady with a history of coronary artery disease status post cardiac artery bypass surgery remotely and multiple cardiac catheterizations. Her last catheterization in 2015 demonstrated normal left main coronary artery left anterior descending artery which was totally occluded first diagonal vessel with mild to moderate diffuse disease circumflex artery which was large dominant with mild disease third obtuse marginal branch with moderately severe disease and saphenous vein grafts which were occluded. The right coronary artery was nondominant with mild disease in the left internal mammary artery was patent to the left anterior descending artery. Medical therapy has been recommended she apparently had been off the diuretics and she did have mild pedal edema. This has been reinstituted and she has been doing better. She says that she has developed open draining wound at her ileostomy site and she is seeing the wound center for the above. She has had some fluctuations in her blood pressure. She has not had any neck arm or jaw discomfort which appears to be typical for angina. Her physical exam today demonstrates clear lung corral regular rate and rhythm and mild pedal edema. Intake Vital Signs06/08/17 Height 5 ft 7 in 06/08/17 Weight: 205 lb 06/08/17 Body Mass Index (BMI) 32.1 06/08/17 Blood Pressure 108/50 Intake Visit Reasons: CP, SOB, per Lynsey Is patient in pain?: Yes Allergies cinnamon [Cinnamon] Allergy (Verified 06/08/17 10:32) Anaphylaxis Influenza Virus Vaccines Allergy (Verified 06/08/17 10:32) Shortness of breath liraglutide [From Victoza] Allergy (Verified 06/08/17 10:32) Anaphylaxis metronidazole [From Flagyl] Allergy (Verified 06/08/17 10:32) Hives Metronidazole HCl [From Flagyl] Allergy (Verified 06/08/17 10:32) Hives Penicillins Allergy (Verified 06/08/17 10:32) Hives Sulfa (Sulfonamide Antibiotics) Allergy (Verified 06/08/17 10:32) Hives ciprofloxacin [From Cipro] Adverse Reaction (Verified 06/08/17 10:32) Nausea codeine Adverse Reaction (Verified 06/08/17 10:32) Stops Ileostomy dicyclomine HCl [From Bentyl] Adverse Reaction (Verified 06/08/17 10:32) Nausea metformin HCl [From Glucophage] Adverse Reaction (Verified 06/08/17 10:32) Nausea Clihkuw-Lsv-Ynu Reductase Inhibitor Adverse Reaction (Verified 06/08/17 10:32) Nausea/joints ache Medications Aspirin [Aspirin, Baby] 81 mg PO DAILY@0800 01/21/15 [History Confirmed 06/08/17] Atorvastatin Calcium [Lipitor] 80 mg PO QHS 01/21/15 [History Confirmed 06/08/17] Clopidogrel Bisulfate [Plavix] 75 mg PO DAILY 01/21/15 [History Confirmed 06/08/17] Magnesium Oxide [Mag-Ox 400] 400 mg PO BID 01/21/15 [History Confirmed 06/08/17] Metoprolol Tartrate [Lopressor (beta esha)] 75 mg PO TID 01/21/15 [History Confirmed 06/08/17] Isosorbide DN [Isordil] 30 mg PO TID 09/03/16 [History Confirmed 06/08/17] Ondansetron HCl [Zofran] 4 mg PO Q8H PRN PRN #20 tab 09/05/16 [Rx Confirmed 06/08/17] Baclofen 10 mg PO QHS 11/24/16 [History Confirmed 06/08/17] Calcium Carbonate [Calcium] 600 mg PO BID 11/24/16 [History Confirmed 06/08/17] Cholecalciferol (Vitamin D3) [Vitamin D3] 2,000 unit PO DAILY 11/24/16 [History Confirmed 06/08/17] loperamide 2 mg tablet 2 mg PO .qid PRN tab 02/12/17 [History Confirmed 06/08/17] omeprazole 20 mg capsule,delayed release 20 mg PO DAILY 02/12/17 [History Confirmed 06/08/17] triamcinolone acetonide 0.1 % topical cream 1 applic TOPICAL BID 02/12/17 [History Confirmed 06/08/17] albuterol sulfate HFA 90 mcg/actuation aerosol inhaler 1 puff INHALATION Q6H PRN #1 inh 03/10/17 [Rx Confirmed 06/08/17] insulin aspart U-100 100 unit/mL subcutaneous pen See Label Instructions SC TID ml 03/23/17 [History Confirmed 06/08/17] miconazole nitrate 2 % topical powder 1 applic TOPICAL QDAY 03/23/17 [History Confirmed 06/08/17] tramadol 50 mg tablet 50 mg PO BID tab 05/05/17 [History Confirmed 06/08/17] Hydrocortisone 1 applic TOPICAL BID 06/02/17 [History Confirmed 06/08/17] duloxetine 20 mg capsule,delayed release 20 mg PO BID cap 06/08/17 [History Confirmed 06/08/17] fenofibrate micronized 200 mg capsule 200 mg PO QDAY 06/08/17 [History Confirmed 06/08/17] furosemide 40 mg tablet 40 mg PO QDAY #90 tab 06/08/17 [Rx Confirmed 06/08/17] nitroglycerin 0.4 mg sublingual tablet 0.4 mg SUBLINGUAL Q5M PRN #25 tab 06/08/17 [Rx Confirmed 06/08/17] pregabalin 50 mg capsule 50 mg PO BID cap 06/08/17 [History Confirmed 06/08/17] PFSH Medical History CAD (coronary artery disease) (Chronic) Hyperlipidemia (Chronic) Benign essential HTN (Chronic) DM2 (diabetes mellitus, type 2) (Chronic) Hx of coronary artery disease (Chronic) History of coronary artery stent placement (Chronic 2012) Chronic renal insufficiency (Acute) Menieres disease (Acute) Sleep apnea (Acute) Syncope (Acute) Ulcerative colitis (Acute) Vertigo (Acute) Surgical History S/P CABG (coronary artery bypass graft) (Chronic 2012) H/O colectomy (Acute) H/O total hysterectomy (Acute) gallbdder removal (Acute) ileostomy (Acute) left thumb surgery (Acute) lysis of adhesion (Acute) vestibular nerve surgery for Meniere's (Acute) Family History Mother CVA (cerebral vascular accident) Diabetes Brother Heart disease of CAD at 65 Myocardial infarction Pancreatitis Father Cancer lymphomia Lymphoma Grandmother Myocardial infarction of CT in her 70s Sister COPD (chronic obstructive pulmonary disease) Social History Smoking Status: Former smoker alcohol intake: never substance use type: does not use caffeine: Yes Type: coffee eating out: 1-3 times/week what type of physical activity do you participate in: none seatbelt use: always do you feel safe at home: Yes ROS Const Const: Negative for fatigue, weakness, body ache, fever(s), headache(s), chills, frequent falls, night sweats, daytime sleepiness, difficulty sleeping, excessive sweating, weight gain, weight loss, increased appetite, poor appetite, anorexia or other Eyes Eyes: Negative for blind spots, loss of peripheral vision, transient loss of vision, blurry vision, change in vision, double vision, floaters, tunnel vision or other ENT ENT: Negative for headache(s), dizziness, hearing loss, tinnitus, Nosebleed/epistaxis, balance problems, post nasal drip, lip swelling, tongue swelling, bleeding gums, hoarseness, neck pain, dry mouth or other Cardio Chest Pain: Yes (States it feels differnt than her usual, usually lower midstenral, now high) Frequency: more than once a day Character: squeezing (heavy, shooting pain, like someone stepped on me with spikes) Onset: at rest, exercise Location: right chest Duration: minutes Exacerbation: other (spontaneous) Relieving: other (spontaneous) Recurrence: other (spontaneous) Palpitations: Yes (with activity) feels like its: fast Edema: Bilateral (mild in ankles, none in legs: no pitting) Muscle aches with walking: None Additional Details: is taking her Lasix as ordered Resp Respiratory: Positive for SOB with activity; negative for SOB at rest, SOB orthopnea\SOB lying down, Coughing up blood/hemoptysis, chest congestion, pain on inspiration, snoring, stridor, wheezing, crackles, paroxysmal nocturnal dyspnea or other GI GI: Negative nausea, vomiting, heartburn, constipation, belching, bloating, cramping, vomiting blood/hematemesis, bright, red blood in stools, black,tarry stools, loose stools, Difficulty Swallowing or other : Negative for hematuria, frequent nighttime urination/ nocturia, erectile dysfunction or abnormal vaginal bleeding Musc Musc: Negative for balance problems, muscle aches/ myalgia, muscle weakness or joint pain Skin Skin: Negative redness, non-healing lesions, rash, unusual bruising, skin ulcer, wounds, jaundice or other Neuro Neuro: Positive for other (headaches every day); negative for weakness, headache(s), frequent falls, blurry vision, double vision, dizziness, lightheadedness, near syncope, syncope, orthostatic symptoms, confusion, memory loss, restless legs, vertigo, seizures or lack of coordination Jose Hematologic/Lymphatic: Negative for easy bleeding, easy bruising, enlarged lymph nodes or other Endo Endo: Negative for fatigue, excessive sweating, cold intolerance, heat intolerance, flushing, increased thirst/drinking, increased hunger, hair loss, hair growth or other Psych Psych: Negative for anxiety, depression, thoughts of harming anyone, thoughts of harming yourself, visual hallucinations, panic attacks or audible hallucinations Allergy Allergy/Immunology: Negative for lip swelling, Negative for tongue swelling, Negative for rash, Negative for throat swelling, Negative for hives Cardiology Exam Const Appearance: cooperative, healthy appearing, well developed, well groomed and no acute distress Nutritional Appearance: well nourished and average body habitus Orientation: alert, awake and oriented x3 Head Head: normal to inspection, normocephalic and atraumatic Ears: hearing grossly normal bilaterally and external ears normal Nose: external nose normal, nasal mucous membranes and turbinates normal, nares normal, septum normal, no nasal discharge Face and Sinus: face symmetric Mouth: oral mucosae normal, tongue normal, oropharynx normal and moist mucous membranes Teeth and gingiva: dentition normal Throat: posterior oropharynx normal, tonsils normal and uvula midline Eyes General: appearance normal, both eyes and all related structures Eyelids: eyelids normal Conjunctivae: conjunctivae normal Pupils: PERRL, normal by confrontation and accommodation normal EOM: EOM intact bilaterally Neck Neck: normal visual inspection, trachea midline and no JVD JVD: +5 Carotids: normal carotid upstroke and bounding pulses Chest Chest inspection: normal inspection of the chest, symmetric chest movement and normal respiratory effort Auscultation: Bilateral: Clear to Auscultation Cardio Palpation: normal PMI Rate: regular rate Rhythm: regular rhythm Heart sounds: S1 normal, S2 normal and normal, physiologic split S2; negative rub, gallop or murmur GI GI: normal to inspection, soft, no hepatosplenomegaly and bowel sounds present Neuro General: alert, awake, oriented x3, no focal sensory deficit, gait normal and moves all extremities Skin Skin: no rashes or lesions noted Extremities Pulses: Normal: Right Femoral Pulse, Left Femoral Pulse, Right Dorsalis Pedis Pulse, Left Dorsalis Pedis Pulse, Right Posterior Tibial Pulse, Left Posterior Tibial Pulse, Right Radial Pulse, Left Radial Pulse Lower Extremity Edema: +1: Bilateral Musculoskel Musculoskeletal: No joint tenderness Psych Psychological: normal affect Assessment AND Plan 1. CAD (coronary artery disease) I25.10 Plan She does not appear to have any active coronary angina going on. My recommendation would be for her to continue her beta-esha at the same dose of 75 mg twice a day. As remember her last stress test also did not demonstrate any evidence of ischemia and her echocardiogram demonstrated preserved ejection fraction. Her blood pressure fluctuations are somewhat concerning but I will suggest that this time that we observe it. 2. Pedal edema R60.0 Plan She does have evidence of mild pedal edema the etiology of which is not entirely clear her last echocardiogram had demonstrated preserved ejection fraction of 65% and we were unable to estimate her right ventricular pressures. I will suggest that we increase her Lasix to 40 mg 3. Benign essential HTN I10 Plan Her blood pressures have been largely stable on the beta-esha the isosorbide and the furosemide. No major changes will be made with respect to the above. Overall I do not detect any acute cardiac issues at this time her EKG which was reported as abnormal just has LVH changes which is essentially unchanged from before. Thank you for allowing me to participate in the care of your patient. Please don't hesitate to call if any issues arise Plan Detail Other Medications New: Changed: Discontinued: Coding Level of Care Code Off vis,est,level 4 Diagnoses CAD (coronary artery disease) I25.10 Pedal edema R60.0 Benign essential HTN I10 Coding Level of Care Code Off vis,est,level 4 Diagnoses CAD (coronary artery disease) I25.10 Pedal edema R60.0 Benign essential HTN I10 06/08/17 1053 <Electronically signed by Fish Stone MD> Date Fish Stone MD Cosigner Signature: Date (if applicable) CC: Shannan Mcgrath MD 12 LEAD ELECTROCARDIOGRAM Observed: 06/03/2017 Status: F Source: [place] 2:35 PM [facility] [place] Cardiovascular Services [address] [place] [address] 12 Lead EKG 06/02/17 1017 MR#: [id number] Acct: [id number] Name: AILYN MÉNDEZ Rep #: [id number] : 1960 56 From: Fish Stone MD Attending Dr: Status: DEP ER Ordering Dr: En Duke MD Date: 06/02/17 Location: ED Sex: F C Admitted: Test Reason : CHEST HEAVINESS Blood Pressure : / mmHG Vent. Rate : 078 BPM Atrial Rate : 078 BPM P-R Int : 158 ms QRS Dur : 088 ms QT Int : 368 ms P-R-T Axes : 014 -22 124 degrees QTc Int : 419 ms Normal sinus rhythm Left ventricular hypertrophy with repolarization abnormality Abnormal ECG Confirmed by FISH STONE MD ([id number]), online content editor KATHERIN HULL ([id number]) on 06/03/2017 2:34:51 PM Referred By: Confirmed By:FISH STONE MD 06/03/17 1434 Date Fish Stone MD CC: Shannan Mcgrath MD; En Duke MD Signed 12 LEAD ELECTROCARDIOGRAM Observed: 06/03/2017 Status: F Source: [place] 2:34 PM [facility] RE[facility] Cardiovascular Services [address] [place] [address] 12 Lead EKG 06/02/17 1322 MR#: [id number] Acct: [id number] Name: AILYN MÉNDEZ Rep #: [id number] : 1960 56 From: Fish Stone MD Attending Dr: Status: DEP ER Ordering Dr: En Duke MD Date: 06/02/17 Location: ED Sex: F C Admitted: Test Reason : REPEAT Blood Pressure : / mmHG Vent. Rate : 078 BPM Atrial Rate : 078 BPM P-R Int : 160 ms QRS Dur : 088 ms QT Int : 386 ms P-R-T Axes : 004 -20 135 degrees QTc Int : 440 ms Normal sinus rhythm Left ventricular hypertrophy with repolarization abnormality Abnormal ECG Confirmed by FISH STONE MD ([id number]), online content editor KATHERIN HULL ([id number]) on 06/03/2017 2:34:12 PM Referred By: Confirmed By:FISH STONE MD 06/03/17 1434 Date Fish Stone MD CC: Shannan Mcgrath MD; En Duke MD Signed 12 LEAD ELECTROCARDIOGRAM Observed: 06/03/2017 Status: F Source: [place] 2:34 PM [facility] Cardiovascular Services [address] [place] [address] 12 Lead EKG 06/02/17 1034 MR#: [id number] Acct: [id number] Name: AILYN MÉNDEZ Rep #: [id number] : 1960 56 From: Fish Stone MD Attending Dr: Status: DEP ER Ordering Dr: En Duke MD Date: 06/02/17 Location: ED Sex: F C Admitted: Test Reason : CHEST HEAVINESS Blood Pressure : / mmHG Vent. Rate : 078 BPM Atrial Rate : 078 BPM P-R Int : 166 ms QRS Dur : 090 ms QT Int : 386 ms P-R-T Axes : 033 -19 106 degrees QTc Int : 440 ms Normal sinus rhythm Left ventricular hypertrophy with repolarization abnormality Abnormal ECG Confirmed by FISH STONE MD ([id number]), online content editor KATHERIN HULL ([id number]) on 06/03/2017 2:34:36 PM Referred By: LISA Confirmed By:FISH STONE MD 06/03/17 1434 Date Fish Stone MD CC: Shannan Mcgrath MD; En Duke MD Signed PULMONARY FUNCTION Observed: 06/03/2017 Status: F Source: [place] TEST 7:45 AM [facility] Pulmonary Services/Neurology [address] [place] [address] MR#: [id number] Acct: [id number] Name: AILYN MÉNDEZ Rep #: [id number] : 1960 56 From: Last Decker DO Referring Dr: Shannan Mcgrath MD Status: REG CLI Ordering Dr: Date: Location: [facility] Sex: F C INTRODUCTION: The patient is a 56-year-old female currently under the care of Dr. Mcgrath presents for pulmonary function testing secondary to a diagnosis of COPD. Respiratory therapy reports good patient effort. Bronchodilators were used during testing. INTERPRETATION: Forced expiration spirometry demonstrates no evidence of a large airways obstructive ventilatory impairment. There was no significant response to aerosolized bronchodilators, based upon strict ATS criteria. Spirograms are of fair quality but terminate prior to 6 seconds, likely underestimating FVC. Body plethysmography was performed and reveals a decreased TLC to 4.49 L, 81% predicted, indicative of a mild restrictive ventilatory impairment. The ERV is significantly reduced at 18% of predicted, likely indicative of an underlying body habitus effect. The remainder of the lung volumes are symmetrically reduced. Diffusing capacity by single breath CO is mildly reduced at 62% predicted. IMPRESSION: These pulmonary function studies demonstrate the presence of a mild restrictive ventilatory impairment with a symmetric reduction in diffusing capacity. 06/03/17 0745 <Electronically signed by Last Brown DO> Date Last Decker DO CC: Shannan Mcgrath MD Date Dictated: 06/03/1741 Date Transcribed: 06/03/17740 Jboss Developer: JONATHON Signed EMERGENCY DEPARTMENT Observed: 06/02/2017 Status: F Source: [place] SUMMARY 4:19 PM [facility] Medical Records Department [address] [place] [address] Emergency Department Summary 06/02/17 1544 MR#: [id number] Acct: [id number] Name: AILYN MÉNDEZ Rep #: [id number] : 1960 56 From: En Duke MD PCP: Shannan Mcgrath MD Status: REG ER ADDENDUM by En Duke MD on 06/02/17 at 1619 Urinalysis is remarkable for glucosuria. There is no evidence of infection. This would explain her frequency. Date En Duke MD cc: Shannan Mcgrath MD * Signed - ER Visit Summary Date of Service: 06/02/17 Chief Complaint: Chest discomfort, dyspnea on exertion, swelling lower extremities and 7 pound weight gain History of Present Illness: The patient is a 56 F who has known coronary disease status post 5 vessel bypass surgery. She states all of her grafts have occluded. She has 9 stents. She reports presents with chest tightness and shortness of breath. She reports shortness of breath for the past couple of days. She reports increased swelling for the past several days with 7 pound weight gain. She has chronic two-pillow orthopnea. She denies PND. She denies cough. The chest tightness is mid chest with radiation to the left upper extremity. There is no nausea, vomiting, diaphoresis. She did report shortness of breath. She predominantly complains of dyspnea on exertion. Dr. Stone was contacted early in her ER course in light of her past history. He informed me that she has been casted 16 times with no evidence of any acute recent pathology. He recommended 3 hour troponin. Patient denies fever, chills night sweats. Patient denies any ocular, visual or auditory symptoms. Patient denies any ENT symptoms. She denies any GI or symptoms. She denies myalgias or arthralgias. She does complain of increased urination. Physical Examination: Vital signs are normal. She is not hypoxic. She does appear slightly pale. Head is atraumatic nor cephalic. Pupils equal round reactive. Extra muscles are intact. Conjunctive is not injected nor is the conjunctive are pale. Nares patent. Posterior faint erythema XA. Trachea is midline. There is no carotid bruit. There is no cervical lymphadenopathy. Heart is regular without murmur, gallop or rub. S1 and S2 are normal. Lungs are clear to auscultation with good movement of air bilaterally. Abdomen is soft nontender with normal bowel sounds. There is 2+ pitting edema of the right and left lower extremity mid leg to toes. Neuro exam is nonfocal. Test Results: First EKG reveals sinus rhythm rate of 78 with LVH and repolarization changes. This was compared to prior and there may be slight difference in V3. EKG was repeated 15 minutes later and is unchanged. Initial blood work was remarkable for glucose of 303 and creatinine 1.2. Three-hour EKG and troponin are essentially unchanged. Troponin is 0.02 and the EKG is unchanged with sinus rhythm and LVH with repolarization. Patient's chest x-ray does not reveal any evidence of pulmonary congestion/CHF. Emergency Department Course and Treatment: Patient received 40 minutes of Lasix in the emergency department and insulin. She will be discharged home with prescription for insulin since she apparently is on no diuretic. She is to call Dr. Stone's office on Wednesday. Treatment Plan: Close outpatient cardiology follow-up Disposition: Discharged to home Impression: 1. Chest pain uncertain etiology 2. Dyspnea secondary to heart failure 3. Bilateral lymphedema secondary to heart failure 4. Hyperglycemia in known diabetic, type I 5. History of coronary disease 6. History of hypertension 7. History hypercholesterolemia This note was generated with Your Tributeation software. It may contain incorrect words, spelling, and punctuation that were not noted in review of the chart prior to signing ED Disposition - Plan for ED Patient: Disposition: Home or Assisted Living Chief Complaint: Weakness Instructions: ED CHF General, ED Hyperglycemia Diabetic, ED Chest Pain Atypical Unkn Cause Prescriptions: Furosemide [Lasix] 20 mg PO DAILY #30 tab Referrals: Shannan Mcgrath MD [Primary Care Provider] - Fish Stone MD [STAFF PHYSICIAN] - 3-5 Days Additional Instructions: You must take your Lasix daily. Dr. Stone would like for you to call the office on Wednesday and let his staff know how you are doing. What to do if you have Problems For any increased pain, shortness of breath, bleeding, nausea or vomiting, chest pain, or any unexpected problems, contact your Primary Care Provider. Call [facility] ([phone]) or report to the closest Emergency Room. Call 911 if necessary. 06/02/17 1558 <Electronically signed by En Duke MD> Date En Duke MD Cosigner Signature (If Indicated): Date CC: Shannan Mcgrath MD TROPONIN-I Collected: 06/02/2017 Status: F Source: [place] 12:30 PM [facility] Order Comment: Comments: Should be drawn 2H after initial Troponin obtained 'TROP' Serial specimen #1, #2, #3, or #4: 2 TYPE CODE TESTS RESULT OUT OF RANGE REFERENCE UNITS LAB L501.4010 <0.06 ng/mL Normal 0.02 TROPONIN-I Result Comment: TROPONIN-I EXPECTED VALUES <0.05 NEGATIVE 0.06 - 0.[address] > OR = 0.[address] Performed By: #### L501.4010 #### [facility] [address] [place], [address] URINALYSIS, COMPLETE Collected: 06/02/2017 Status: F Source: [place] 11:45 AM [facility] Order Comment: Order Date: 06/02/17 Has pt arrived? Y How was Urine Obtained? CLEAN CATCH TYPE CODE TESTS RESULT OUT OF RANGE REFERENCE UNITS LAB L400.3000 Yellow COLOR Normal Yellow LAB L400.3050 Clear Normal CLARITY Sl. Cloudy LAB L400.3200 Normal mg/dl High GLUCOSE, UR 1000 LAB L400.3300 Negative mg/dL Normal BILIRUBIN URINE Negative LAB L400.3400 Negative mg/dl High 5 KETONE UR LAB L400.3465 1.002-1.030 Normal SP.GR. DIPSTX 1.015 LAB L400.3550 5.0 - 8.0 pH UR Normal 6.0 LAB L400.3600 Negative mg/dl High PROT 30 DIPSTX LAB L400.3700 Normal mg/dl Normal UROBILI Normal LAB L400.3750 Negative Normal NITRITE UR Negative LAB L400.3780 Negative /ul Normal OCCULT BLOOD-UR Negative LAB L400.3800 Negative /ul LEUK Normal ESTERASE Negative LAB L400.4050 0-5 /hpf WBC 0 Normal SEEN LAB L400.4100 0-5 /hpf 0 Normal RBC-UA SEEN LAB L400.4150 5-10 /hpf SQUAM Normal EPI 0-5 SEEN LAB L400.4300 None Seen /hpf Normal BACTERIA RARE LAB L400.4350 <or=2+ /hpf 0 Normal MUCUS, URINE SEEN Performed By: #### L400.0001 #### [facility] [address] [place], [address] CHEST 1 VIEW Observed: 06/02/2017 Status: F Source: [place] (PORTABLE) 10:32 AM [facility] Imaging Services [address] [place] [address] Chest 1 View (Portable) MR#: [id number] Acct: [id number] Name: AILYN MÉNDEZ Rep #: [id number] : 1960 F 56 From: Chadwick Schaefer MD PCP: Shannan Mcgrath MD Status: REG ER Study: Chest 1 View (Portable) Date of Exam: 06/02/17 Exam# [id number] Ordering Dr: En Duke MD STUDY: X-RAY CHEST REASON FOR EXAM: Female, 56 years old. Chest pain. COPD, CHF and CABG. TECHNIQUE: Single AP upright portable chest image. COMPARISON: 05/27/2017 chest. FINDINGS: The lungs appear clear and well expanded. There is no demonstrated pleural abnormality. Normal size heart for projection. Normal mediastinum and marie. Normal visualized pulmonary arteries. Normal visualized aortic knob and descending thoracic aorta. Normal visualized thoracic spine, ribs, clavicles and shoulders. No change sternal wires or bilateral superior pericardial surgical clips. There is no demonstrated abnormality of the visualized soft tissue structures of the upper abdomen. No subdiaphragmatic free air seen grossly. RAD/Chest 1 View (Portable) IMPRESSION: No active cardiopulmonary disease identified. CABG, stable appearance. Electronically Signed: Chadwick Schaefer, at 12:06 EDT Tel , Service support , CC: Shannan Mcgrath MD; En Duke MD Jboss Developer: Signed CBC W/DIFF, AUTOMATED Collected: 06/02/2017 Status: F Source: [place] 10:30 AM [facility] TYPE CODE TESTS RESULT OUT OF RANGE REFERENCE UNITS LAB L100.1000 4.4-11.0 K/mm3 Normal WBC 7.7 LAB L100.1200 4.2-5.4 M/mm3 Normal RBC 4.54 LAB L100.1300 12.0-15.0 g/dl Normal HGB 12.8 LAB L100.1400 37-47 % Normal HCT 40.2 LAB L100.1500 81-99 fL Normal MCV 88.5 LAB L100.1600 27.0-32.0 pg Normal MCH 28.2 LAB L100.1700 32-36 g/gl Low MCHC 31.8 LAB L100.1810 11.6-14.6 % High RDW CV 16.3 LAB L100.1820 35.1-43.9 fl High RDW SD 52.5 LAB L100.1900 150-450 K/mm3 Normal PLT 193 LAB L100.2000 6.2-12.0 fl Normal MPV 12.0 LAB L100.2100 47-70 % Normal NEUT% 56.0 LAB L100.2200 19-41 % Normal LY% 29.4 LAB L100.2300 0-10 % Normal MONO% 7.9 LAB L100.2400 0-5 % Normal EO% 4.5 LAB L100.2500 0-1 % Normal BASO% 0.8 LAB L100.2550 0.0-0.9 % High IM GRAN % 1.400 Result Comment: IG% - Immature Granulocytes (promyelocytes, myelocytes and metamyelocytes) > 1% indicates that a LEFT SHIFT is Present. LAB L100.2620 2.0-7.7 X10 3/uL Normal Absolute Neut 4.3 LAB L100.2720 0.83-4.51 X10 3/ul Normal Absolute Lymph 2.27 Performed By: #### L100.0100 #### [facility] [address] [place], [address] BASIC METABOLIC Collected: 06/02/2017 Status: F Source: [place] PROFILE (BMP) 10:30 AM [facility] Order Comment: 'TROP' Serial specimen #1, #2, #3, or #4: 1 TYPE CODE TESTS RESULT OUT OF RANGE REFERENCE UNITS LAB L501.0100 74-106 mg/dL High GLU 303 Result Comment: Glucose result greater than or equal to 200 mg/dL suggests DIABETES MELLITUS per A.D.A. criteria. Please note revised GLUCOSE reference range effective 2017. LAB L501.1000 7-18 mg/dL High BUN 31 LAB L501.1100 0.55-1.02 mg/dL High CREAT,SERUM 1.22 Result Comment: The validity of the calculated GFR AND GFRAA in patients over 70 years has not been determined. Clinical correlation is essential. LAB L501.1110 >60 mL/min Low EST GFR 48 Result Comment: Non- GFR Calc LAB L501.1115 >60 mL/min Low EST GFR - AA 58 Result Comment: GFR Calc LAB L501.1255 ml/min Normal Estimated CRCL 48.88 LAB L501.1300 10-20 RATIO High BUN/CRE 25.4 LAB L501.2200 8.5-10 mg/dL Normal .1 CA 9.2 LAB L501.5300 136-14 mmol/L Normal 5 NA 138 LAB L501.5600 3.5-5. mmol/L Normal 1 K 4.4 LAB L501.5900 98-107 mmol/L Normal CL 104 LAB L501.6100 21.0-3 mmol/L Normal 2.0 CO2 26.0 LAB L501.6200 5-15 Normal GAP 8 Performed By: #### L500.2500, L501.4010 #### [facility] [address] [place], [address] TROPONIN-I Collected: 06/02/2017 Status: F Source: [place] 10:30 AM [facility] Order Comment: 'TROP' Serial specimen #1, #2, #3, or #4: 1 TYPE CODE TESTS RESULT OUT OF RANGE REFERENCE UNITS LAB L501.4010 <0.06 ng/mL Normal < 0.02 TROPONIN-I Result Comment: TROPONIN-I EXPECTED VALUES <0.05 NEGATIVE 0.06 - 0.[address] > OR = 0.[address] Performed By: #### L500.2500, L501.4010 #### [facility] [address] [facility] [address] [place], [address] INTERNAL MEDICINE Observed: 06/01/2017 Status: F Source: [place] OFFICE VISIT 8:25 AM [facility] [address] [place] [address] [place] [address] OFFICE VISIT Date of Service: 05/27/17 MR#: [id number] Acct: [id number] Name: AILYN MÉNDEZ Jamaal Rep #: [id number] : 1960 Provider: Shannna Mcgrath MD Age/Sex: 56/F Location: [facility] Status: Signed Intake Vital Signs05/27/17 Height 5 ft 7 in 05/27/17 Weight: 207 lb 05/27/17 Body Mass Index (BMI) 32.4 05/27/17 Blood Pressure 150/84 05/27/17 Blood Pressure Location Lt brachial Intake Visit Reasons: BREAST PAIN Chief Complaint: pain under right breast Is patient in pain?: Yes (under right breast ) Pain scale (1-10): 8 Allergies cinnamon [Cinnamon] Allergy (Verified 05/31/17 11:15) Anaphylaxis Influenza Virus Vaccines Allergy (Verified 05/31/17 11:15) Shortness of breath liraglutide [From Victoza] Allergy (Verified 05/31/17 11:15) Anaphylaxis metronidazole [From Flagyl] Allergy (Verified 05/31/17 11:15) Hives Metronidazole HCl [From Flagyl] Allergy (Verified 05/31/17 11:15) Hives Penicillins Allergy (Verified 05/31/17 11:15) Hives Sulfa (Sulfonamide Antibiotics) Allergy (Verified 05/31/17 11:15) Hives codeine Adverse Reaction (Verified 05/31/17 11:15) Stops Ileostomy dicyclomine HCl [From Bentyl] Adverse Reaction (Verified 05/31/17 11:15) Nausea metformin HCl [From Glucophage] Adverse Reaction (Verified 05/31/17 11:15) Nausea Pxuleiz-Shz-Pvt Reductase Inhibitor Adverse Reaction (Verified 05/31/17 11:15) Nausea/joints ache Medications Aspirin [Aspirin, Baby] 81 mg PO DAILY@0800 01/21/15 [History Confirmed 05/31/17] Atorvastatin Calcium [Lipitor] 80 mg PO QHS 01/21/15 [History Confirmed 05/31/17] Clopidogrel Bisulfate [Plavix] 75 mg PO DAILY 01/21/15 [History Confirmed 05/31/17] Magnesium Oxide [Mag-Ox 400] 400 mg PO BID 01/21/15 [History Confirmed 05/31/17] Metoprolol Tartrate [Lopressor (beta esha)] 75 mg PO TID 01/21/15 [History Confirmed 05/31/17] Nitroglycerin [Nitrostat] 0.4 mg SL Q5M PRN 07/12/16 [History Confirmed 05/31/17] Isosorbide DN [Isordil] 30 mg PO TID 09/03/16 [History Confirmed 05/31/17] Ondansetron HCl [Zofran] 4 mg PO Q8H PRN PRN #20 tab 09/05/16 [Rx Confirmed 05/31/17] Baclofen 10 mg PO QHS 11/24/16 [History Confirmed 05/31/17] Calcium Carbonate [Calcium] 600 mg PO BID 11/24/16 [History Confirmed 05/31/17] Cholecalciferol (Vitamin D3) [Vitamin D3] 2,000 unit PO DAILY 11/24/16 [History Confirmed 05/31/17] loperamide 2 mg tablet 2 mg PO .qid PRN tab 02/12/17 [History Confirmed 05/31/17] omeprazole 20 mg capsule,delayed release 20 mg PO QDAY 02/12/17 [History Confirmed 05/31/17] triamcinolone acetonide 0.1 % topical cream 1 applic TOPICAL BID 02/12/17 [History Confirmed 05/31/17] albuterol sulfate HFA 90 mcg/actuation aerosol inhaler 1 puff INHALATION Q6H PRN #1 inh 03/10/17 [Rx Confirmed 05/31/17] blood sugar diagnostic strips See Dose Instructions .ROUTE .MEDSUPPLY #20 ea 03/23/17 [History Confirmed 05/31/17] insulin aspart U-100 100 unit/mL subcutaneous pen See Label Instructions SC TID ml 03/23/17 [History Confirmed 05/31/17] miconazole nitrate 2 % topical powder 1 applic TOPICAL QDAY 03/23/17 [History Confirmed 05/31/17] hydrocortisone 2.5 % topical ointment 1 applic TOPICAL BID #28.35 g 05/05/17 [Rx Confirmed 05/31/17] tramadol 50 mg tablet 50 mg PO BID tab 05/05/17 [History Confirmed 05/31/17] pregabalin 100 mg capsule 100 mg PO BID #60 cap 05/11/17 [Rx Confirmed 05/31/17] Duloxetine Hcl [Cymbalta] 30 mg PO BID 05/13/17 [History Confirmed 05/31/17] Ciprofloxacin [Cipro] 500 mg PO BID #14 tab 05/27/17 [Rx Confirmed 05/31/17] Fenofibrate [Lipofen] 200 mg PO DAILY 05/27/17 [History Confirmed 05/31/17] PFSH Medical History CAD (coronary artery disease) (Chronic) Hyperlipidemia (Chronic) Benign essential HTN (Chronic) DM2 (diabetes mellitus, type 2) (Chronic) Hx of coronary artery disease (Chronic) History of coronary artery stent placement (Chronic 2013) Chronic renal insufficiency (Acute) Menieres disease (Acute) Sleep apnea (Acute) Syncope (Acute) Ulcerative colitis (Acute) Vertigo (Acute) Surgical History S/P CABG (coronary artery bypass graft) (Chronic 2013) H/O colectomy (Acute) H/O total hysterectomy (Acute) gallbdder removal (Acute) ileostomy (Acute) left thumb surgery (Acute) lysis of adhesion (Acute) vestibular nerve surgery for Meniere's (Acute) Family History Mother CVA (cerebral vascular accident) Diabetes Brother Heart disease of CAD at 65 Myocardial infarction Pancreatitis Father Cancer lymphomia Lymphoma Grandmother Myocardial infarction of CT in her 70s Sister COPD (chronic obstructive pulmonary disease) Social History Smoking Status: Former smoker alcohol intake: never substance use type: does not use caffeine: Yes Type: coffee eating out: 1-3 times/week what type of physical activity do you participate in: none seatbelt use: always do you feel safe at home: Yes HPI HPI Chief Complaint: pain under right breast Details: AILYN MÉNDEZ, is a 56yo F who presents to the office today for a right-sided upper abdominal pain. Symptoms have been acute in onset. Initially noted last night and has persisted. Pain is said to be sharp. Worse on deep inspiration and with movement. She denies any known precipitating or relieving factors. She was seen in the ER early hours of today due to elevated blood sugars and blood pressure. Blood pressure in office today is 150/84 mmHg, pulse rate is 75. She denies any concern and symptoms similar to her presenting symptoms to the ER. ROS Const Constitutional: No weight change, body ache, chills, fatigue, sleep problems, fever(s), change in appetite, snoring, weakness, frequent falls, headache(s) or excessive sweating Eyes Eyes: No change in vision, eye pain, light sensitivity or blurry vision ENT ENT: No headache(s), abnormal hearing, ear pain, tinnitus, nasal congestion, sore throat or neck pain Resp Respiratory: No snoring, cough or wheezing Cardio Cardiology: Positive for lightheadedness; no excessive sweating, chest pain at rest, chest pain with exertion, shortness of breath, dyspnea on exertion, palpitations or orthopnea Gastro GI: No abdominal pain, change in bowel habits, constipation, diarrhea, vomiting, nausea/dyspepsia or cramping Musc Musculoskeletal: No neck pain, abnormal walking, joint pain, back pain, limited range of motion, numbness or tingling Skin Skin: No redness, dry skin, itching, lesions, wounds or rash Neuro Neurology: No weakness, frequent falls, headache(s), abnormal hearing, abnormal walking, numbness, tingling, abnormal speech, dizziness or memory loss Psych Psychiatric: No change in appetite, No memory loss, No anxiety, No depression, No Thoughts of harming yourself/Others Endo Endocrine: No fatigue, excessive sweating, cold intolerance, increased thirst/drinking, heat intolerance, flushing or increased hunger Aller/Imm Allergy/Immunologic: No wheezing, itchy eyes, hives or seasonal allergy symptoms Jose/Lymp Hematologic/Lymphatic: No easy bleeding, easy bruising or enlarged lymph nodes Exam Const General: cooperative, no acute distress Orientation: alert, awake, oriented x3 HENMT Head: atraumatic, normocephalic Ears: hearing grossly normal bilaterally Resp Effort AND Inspection: normal respiratory effort, able to speak in complete sentences Auscultation: Bilateral: Clear to Auscultation Cardio Rate: regular rate Rhythm: regular rhythm Heart Sounds: S1 normal, S2 normal GI Other: Marked tenderness in the right subcostal/upper abdominal quadrant. Skin Other: Areas of plaque-like maculopapular lesions noted diffusely especially on the nose elbows and lower extremity. Neuro General: alert, awake, oriented x3, moves all extremities, CN's II-XI intact bilaterally Extrem General: no pedal edema Psych Appearance: grossly normal Mood: congruent mood Affect: normal affect Assessment AND Plan 1. Abdominal pain R10.9 Plan Right upper quadrant/subcostal area. Tenderness on examination. Pain is worse with movement. Most likely musculoskeletal. Imaging done in the ER yesterday was without any significant abnormality. She also had a chest x-ray which was negative for any acute process. She currently just filled up her refills for baclofen, advised to take this. Continue tramadol. Topical analgesics/lidocaine patch. Warm compresses. Patient advised to call the office or go to the ER if she notes any worsening symptoms or concerning symptoms including vomiting. 2. Benign essential HTN I10 Plan Blood pressure and heart rate are better controlled at this time. Patient advised to continue monitoring. Call the office or go to the ER with any concerning numbers. Will follow. This note was generated with [employer] dictation software. It may contain incorrect words, spelling, and punctuation that were not noted in checking the note before signing. Plan Detail Other Medications Discontinued: Coding Level of Care Code Off vis,est,level 3 Diagnoses Abdominal pain R10.9 Benign essential HTN I10 06/01/17 0825 <Electronically signed by Shannan Mcgrath MD> Date Shannan Mcgrath MD Cosigner Signature: Date (if applicable) CC: ENDOCRINOLOGY VISIT Observed: 05/31/2017 Status: F Source: [place] RE[place] 12:34 PM [facility] [address] [place] [address]. [address] [place] [address] OFFICE VISIT Date of Service: 05/31/17 MR#: [id number] Acct: [id number] Name: AILYN MÉNDEZ Rep #: [id number] : 1960 Provider: Jane Saez NP Age/Sex: 56/F [place] [facility] [place]: Signed HPI History of present illness Ailyn Méndez is a 56 year old female who presents for follow up of diabetes type 2. Diagnosed in 1989 according to pt. She is currently following with [facility] dietary for the why weight program. She reports she is now eating 4-6 small meals daily . She feels better on small meals due to gastroparesis. Does have meal replacement for breakfast which only contains 16 grams of carb. Reports she has open wound RUQ which was an old surgical scar that opened. Being seen by the wound center. She is concerned about it. Is doing dressing changes at home as well. Is also seeing a surgeon at [facility] main campus. Reports she had a BG of 400 last . She went to ER and was diagnosed with a UTI. Reports she took her antibiotic for three days but stopped due to feeling like the medication was interfering with her cymbalta. Reports she has placed a call to her PCP this am. Reports she has new onset edema in lower legs. She has not reported this to her training and development project leader but plans to do so. At time of visit: -Pt denies symptoms of hypertensive emergency (CP,SOB,WOLF, or blurred vision) and hypotension(dizziness or lightheadedness) -Pt denies symptoms of hypoglycemia ( sweaty, confusion, anxiety, tremor, hunger, palpitations) and hyperglycemia ( polydipsia, polyuria) -Pt denies potential medication adverse effect. Hypoglycemia Aware of hypoglycemia: When awake Able to self treat low BG: Yes Frequent low Blood sugar: No Has supply of glucagon: No Currently continues on basaglar 66 in am and 76 in pm. Meal insulin 25 units per meal and sliding scale insulin which was given to her during a hospital stay. Checking BG at breakfast, lunch and dinner. Consuming 30 grams of carb for most meals. . She has been using her scale of 150-199=27, 200-259=32, 260-324=42, 325-324=37. Most recent BG readings for the last week have been 155-200+ and a BG of 400 one day. This is with taking her insulin 3 times daily if needed. Pt denies difficulty with injections or self monitoring of BG. Denies any signs of infection or irritation at site of injections. Reports taking insulin as directed Cardiopulmonary symptoms: Denies chest pain at rest, dyspnea on exertion, lightheadedness or myalgias GI symptoms: Denies constipation, diarrhea, nausea/dyspepsia or vomiting Other symptoms: Denies blurry vision or change in vision Self monitoring: Yes Dietary compliance: Diabetes: good Diabetes education in past year: Yes Glucose testing: demonstrates correct use of meter Weight and fatigue symptoms: Denies snoring Cardiopulmonary symptoms: Reports chest pain at rest; denies dyspnea on exertion or lightheadedness GI symptoms: Reports nausea/dyspepsia and vomiting; denies constipation or diarrhea Other symptoms: Denies blurry vision or change in vision Exam Const General: comfortable, no acute distress Nutritional Appearance: well nourished Orientation: oriented x3 HENMT Head: normal to inspection, normocephalic Ears: hearing grossly normal bilaterally Mouth: oral mucosae normal, moist mucous membranes Teeth and gingiva: dentition normal Resp Effort AND Inspection: normal respiratory effort, able to speak in complete sentences, symmetric chest movement Auscultation: Bilateral: Clear to Auscultation Cardio Rate: regular rate Rhythm: regular rhythm Heart Sounds: S1 normal, S2 normal Skin Rashes: rashes noted (left elbow and arm; psoriasis) Diabetic Foot Pulses: L dorsalis pedis pulse: normal, R dorsalis pedis pulse: normal Neuro General: gait normal, moves all extremities Cognition: normal cognition Speech: speech normal Gait: normal gait Extrem General: normal to inspection Psych Appearance: well kempt Mental Status: mental status grossly normal Mood: congruent mood Affect: normal affect Speech and Movement: speech and movement normal Attitude: cooperative Thought Process: normal Thought Content: normal Judgment: judgment good Intake Vital Signs05/31/17 Height 5 ft 7 in 05/31/17 Weight: 207 lb 6 oz 05/31/17 Body Mass Index (BMI) 32.4 05/31/17 Blood Pressure 169/89 05/31/17 Blood Pressure Location Lt popliteal 05/31/17 Blood Pressure Position Sitting Intake Visit Reasons: diabetes Chief Complaint: follow-up visit 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: No Accompanied by: Self Is patient in pain?: No Allergies cinnamon [Cinnamon] Allergy (Verified 05/31/17 11:15) Anaphylaxis Influenza Virus Vaccines Allergy (Verified 05/31/17 11:15) Shortness of breath liraglutide [From Victoza] Allergy (Verified 05/31/17 11:15) Anaphylaxis metronidazole [From Flagyl] Allergy (Verified 05/31/17 11:15) Hives Metronidazole HCl [From Flagyl] Allergy (Verified 05/31/17 11:15) Hives Penicillins Allergy (Verified 05/31/17 11:15) Hives Sulfa (Sulfonamide Antibiotics) Allergy (Verified 05/31/17 11:15) Hives codeine Adverse Reaction (Verified 05/31/17 11:15) Stops Ileostomy dicyclomine HCl [From Bentyl] Adverse Reaction (Verified 05/31/17 11:15) Nausea metformin HCl [From Glucophage] Adverse Reaction (Verified 05/31/17 11:15) Nausea Pexfbrt-Uev-Dgd Reductase Inhibitor Adverse Reaction (Verified 05/31/17 11:15) Nausea/joints ache Medications Aspirin [Aspirin, Baby] 81 mg PO DAILY@0800 01/21/15 [History Confirmed 05/31/17] Atorvastatin Calcium [Lipitor] 80 mg PO QHS 01/21/15 [History Confirmed 05/31/17] Clopidogrel Bisulfate [Plavix] 75 mg PO DAILY 01/21/15 [History Confirmed 05/31/17] Magnesium Oxide [Mag-Ox 400] 400 mg PO BID 01/21/15 [History Confirmed 05/31/17] Metoprolol Tartrate [Lopressor (beta esha)] 75 mg PO TID 01/21/15 [History Confirmed 05/31/17] Nitroglycerin [Nitrostat] 0.4 mg SL Q5M PRN 07/12/16 [History Confirmed 05/31/17] Isosorbide DN [Isordil] 30 mg PO TID 09/03/16 [History Confirmed 05/31/17] Ondansetron HCl [Zofran] 4 mg PO Q8H PRN PRN #20 tab 09/05/16 [Rx Confirmed 05/31/17] Baclofen 10 mg PO QHS 11/24/16 [History Confirmed 05/31/17] Calcium Carbonate [Calcium] 600 mg PO BID 11/24/16 [History Confirmed 05/31/17] Cholecalciferol (Vitamin D3) [Vitamin D3] 2,000 unit PO DAILY 11/24/16 [History Confirmed 05/31/17] loperamide 2 mg tablet 2 mg PO .qid PRN tab 02/12/17 [History Confirmed 05/31/17] omeprazole 20 mg capsule,delayed release 20 mg PO QDAY 02/12/17 [History Confirmed 05/31/17] triamcinolone acetonide 0.1 % topical cream 1 applic TOPICAL BID 02/12/17 [History Confirmed 05/31/17] albuterol sulfate HFA 90 mcg/actuation aerosol inhaler 1 puff INHALATION Q6H PRN #1 inh 03/10/17 [Rx Confirmed 05/31/17] blood sugar diagnostic strips See Dose Instructions .ROUTE .MEDSUPPLY #20 ea 03/23/17 [History Confirmed 05/31/17] insulin aspart U-100 100 unit/mL subcutaneous pen See Label Instructions SC TID ml 03/23/17 [History Confirmed 05/31/17] miconazole nitrate 2 % topical powder 1 applic TOPICAL QDAY 03/23/17 [History Confirmed 05/31/17] hydrocortisone 2.5 % topical ointment 1 applic TOPICAL BID #28.35 g 05/05/17 [Rx Confirmed 05/31/17] tramadol 50 mg tablet 50 mg PO BID tab 05/05/17 [History Confirmed 05/31/17] pregabalin 100 mg capsule 100 mg PO BID #60 cap 05/11/17 [Rx Confirmed 05/31/17] Duloxetine Hcl [Cymbalta] 30 mg PO BID 05/13/17 [History Confirmed 05/31/17] Ciprofloxacin [Cipro] 500 mg PO BID #14 tab 05/27/17 [Rx Confirmed 05/31/17] Fenofibrate [Lipofen] 200 mg PO DAILY 05/27/17 [History Confirmed 05/31/17] Is last menstrual period known: No Post menopausal: Yes Patient : No Nurse's Note: blood sugars : low : 155 high : 450+ PFSH Medical History CAD (coronary artery disease) (Chronic) Hyperlipidemia (Chronic) Benign essential HTN (Chronic) DM2 (diabetes mellitus, type 2) (Chronic) Hx of coronary artery disease (Chronic) History of coronary artery stent placement (Chronic 2012) Chronic renal insufficiency (Acute) Menieres disease (Acute) Sleep apnea (Acute) Syncope (Acute) Ulcerative colitis (Acute) Vertigo (Acute) Surgical History S/P CABG (coronary artery bypass graft) (Chronic 2012) H/O colectomy (Acute) H/O total hysterectomy (Acute) gallbdder removal (Acute) ileostomy (Acute) left thumb surgery (Acute) lysis of adhesion (Acute) vestibular nerve surgery for Meniere's (Acute) Family History Mother CVA (cerebral vascular accident) Diabetes Brother Heart disease of CAD at 65 Myocardial infarction Pancreatitis Father Cancer lymphomia Lymphoma Grandmother Myocardial infarction of CT in her 70s Sister COPD (chronic obstructive pulmonary disease) Social History Smoking Status: Former smoker alcohol intake: never substance use type: does not use caffeine: Yes Type: coffee eating out: 1-3 times/week what type of physical activity do you participate in: none seatbelt use: always do you feel safe at home: Yes ROS Const Constitutional: Positive for excessive sweating, fatigue, decreased energy, malaise and weight change; no anorexia, body ache, chills, fever(s), frequent falls, night sweats, weakness, sleep problems, abnormal sleep pattern, change in appetite, other, headache(s) or snoring Eyes Eyes: No blurry vision, change in vision, double vision, discharge, dry eyes, bulging eyes, floaters, visual disturbances, eye pain, light sensitivity, spots in vision, tunnel vision or other ENT ENT: No abnormal hearing, ear pain, ear discharge, ear pressure, hearing loss, tinnitus, dizziness/vertigo, balance problems, nosebleed/epistaxis, nasal congestion, nasal obstruction, nose pain, sinus pressure, sinus pain, nasal discharge, post nasal drip, headache(s), facial pain, dental pain, dry mouth, bad breath, hoarseness, lip swelling, mouth lesions, mouth pain, neck pain, sore throat, tongue swelling, throat swelling, other or difficulty swallowing Resp Respiratory: Positive for shortness of breath; no cough, change in phlegm color, chest congestion, excessive phlegm production, hemoptysis, pain on inspiration, pain with cough, snoring, stridor, wheezing or other Cardio Cardiology: Positive for excessive sweating, chest pain at rest, chest pain with exertion and generalized swelling; no leg pain with exertion, shortness of breath, dyspnea on exertion, irregular heart rhythm, lightheadedness, orthopnea, radiating jaw, neck or arm pain, fast heart rate, slow heart rate, palpitations or other Gastro GI: Positive for nausea/dyspepsia and vomiting; no abdominal pain, belching, bloating, change in bowel habits, change in stool character, coffee ground emesis, constipation, cramping, diarrhea, heartburn, difficulty swallowing, feeling full early, excessive flatus, incontinent of stools, Vomiting blood/hematemesis, blood in stool, loose stools, Black,tarry stools, pain with swallowing or other Genitourinary-Female: Positive for burning urination, painful urination and urinary frequency; no difficulty urinating, urinary incontinence, urinary urgency, urinary hesitancy, urinary retention, blood in urine, Frequent nighttime urination/ nocturia, post void dribbling, suprapubic fullness, side pain, sexual problems, genital lesions, genital itching, hot flashes, abnormal periods, abnormal vaginal bleeding, absent period, painful periods, light periods, heavy periods, difficulty getting , painful intercourse, pelvic pain, vaginal dryness, vaginal odor, Vaginal Itching or other Musc Musculoskeletal: No neck pain Neuro Neurology: No frequent falls, weakness, visual disturbances, abnormal hearing or headache(s) Psych Psychiatric: No abnormal sleep pattern, No change in appetite Endo Endocrine: Positive for excessive sweating and fatigue; no other Aller/Imm Allergy/Immunologic: No lip swelling, tongue swelling, throat swelling or wheezing Assessment AND Plan Problems 1. Type 2 diabetes mellitus with stage 3 chronic kidney disease, with long-term current use of insulin E11.9 2. Gastroparesis K31.84 3. Benign essential HTN I10 Plan Pt is interested in insulin pump but she does require over 200 units daily. Would consider use of U-500 prior to considering the pump. BG readings high last week and when she went to ER she had UTI. Did not finish ANTIBIOTIC DUE TO SIDE EFFECTS. She has called PCP regarding this LLE Will call her training and development project leader regarding this. She denies CP or SOB Diabetes I have ask patient to increase am insulin to 70. Once she is able to conclude her issues regarding UTI and her LLE we can attempt prior authorization. Would not switch insulin in middle of these other issues in case of side effects. BP elevated at today's appointment. Reports taking all medications as instructed except for antibiotic. Gastroparesis Doing well with liquid breakfast and small meals during the day. Plan Detail Additional Comments 1. Please schedule follow up in 2 months. 2. Lab work one week before appointment. 3. Discussed importance of regular exercise and recommend starting or continuing a regular exercise program for good health. 4. The patient was encouraged to lose weight for good health 5. The importance of monitoring blood sugar regularly was reviewed. 6. The importance of monitoring the HBA1c level regularly was reviewed. 7. The importance of prper foot care and regularly checking feet to prevent sores and loss of limbs was reviewed. 8. The importance of keeping BP at or below 130/80 to prevent stroke, heart attacks, kidney failure, blindness was reviewed. Spent approximately 45 minutes with patient with over 50% of time spent in discussion and counseling regarding medication adjustment, symptoms and treatment of hypoglycemia, diet adherence, and checking BG before driving. Coding Level of Care Code Off vis,est,level 4 Diagnoses Type 2 diabetes mellitus with stage 3 chronic kidney disease, with long-term current use of insulin E11.9 Gastroparesis K31.84 Benign essential HTN I10 Time Spent (min) 45 05/31/17 1234 <Electronically signed by Jane LEOS> Date Jane LEOS Cosigner Signature: Date (if applicable) CC: 12 LEAD ELECTROCARDIOGRAM Observed: 05/28/2017 Status: F Source: [place] 2:45 PM [facility] Cardiovascular Services [address] [place] [id number] 12 Lead EKG 05/27/17 0102 MR#: [id number] Acct: [id number] Name: AILYN MÉNDEZ Rep #: [id number] : 1960 56 From: Fish Stone MD Attending Dr: Status: DEP ER Ordering Dr: Shmuel Bañuelos DO Date: 05/27/17 Location: ED Sex: F C Admitted: Test Reason : Blood Pressure : / mmHG Vent. Rate : 111 BPM Atrial Rate : 111 BPM P-R Int : 164 ms QRS Dur : 088 ms QT Int : 338 ms P-R-T Axes : 044 -27 126 degrees QTc Int : [address] AND T wave abnormality, consider lateral ischemia Abnormal ECG Confirmed by FISH STONE MD ([id number]), online content editor KATHERIN HULL ([id number]) on 05/28/2017 2:45:14 PM Referred By: SAMMIE Confirmed By:FISH STONE MD 05/28/17 1445 Date Fish Stone MD CC: Shannan Mcgrath MD; Shmuel Roldan EMERGENCY DEPARTMENT Observed: 05/27/2017 Status: F Source: [place] SUMMARY 3:32 AM [facility] Medical Records Department [address] [place] [address] Emergency Department Summary 05/27/17 0323 MR#: [id number] Acct: [id number] Name: AILYN MÉNDEZ Rep #: [id number] : 1960 56 From: Shmuel Asher PCP: Shannan Mcgrath MD Status: REG ER - ER Visit Summary Date of Service: 05/27/17 Chief Complaint: Elevated glucose, elevated blood pressure History of Present Illness: The patient is a 56 F presents for evaluation of elevated glucose. Blood glucose was 450 this evening, status post 20 units of short acting insulin at 10 PM. Nausea without vomiting. States that urine frequency. Denies fever, chills, sweats. States been having lower abdominal pain for the past 2 weeks, has abdominal wound in the right lower side initially followed by Dr. Curielbody was referred to Dr. Rose who has been following her wound. Denies any increasing drainage. History of hysterectomy along with cholecystectomy. History of colectomy with ileostomy. Chronic loose stools. This is states is intermittent chest pains followed by Dr. Stone. Has had persistent substernal pain over 24 hours. States this is normal for her. Pain in her lower abdomen is 5 out of 6. No changes in her insulin. Physical Examination: General: Alert and oriented 3, no acute distress HEENT: Normocephalic, atraumatic. Moist mucosa membranes Neck: supple, nontender. Cardiovascular: Regular tachycardic rate and rhythm, no murmurs Respiratory: Normal breath sounds, symmetric, no distress Abdomen: Soft, nondistended, mild tenderness right lower abdomen. Abdominal wound, small orifice minimal drainage. No surrounding erythema or indurations. Normal bowel sounds. Extremities: Nontender, no edema, pulses intact 4 Neuro: no focal neurological deficits. Test Results: EKG sinus rate of 111, isolated ST depression in leads I. T-wave inversions V1 to V6. Troponin negative. WBC 8.1. Hemoglobin 13.5. Potassium 4. Creatinine 1.36. Urine with leukocytes and nitrite. Urine culture pending. Ketones negative. Chest x-ray negative. CT abdomen pelvis no acute process. No abscess. Emergency Department Course and Treatment: Blood glucose was 340 on arrival. Normal anion gap. Creatinine 1.38, previously 1.23-1.7. She is given IV fluids. Morphine Zofran for pain and nausea. Due to abdominal discomfort, CT abdomen was obtained showed no abscess. No intra-abdominal process. Cardiac workup negative. Patient states normal typical symptoms for her. Over 24 hours of symptoms negative troponin likely not cardiac in nature. Chronic changes on EKG comparison to old. Urine did note signs of infection. Culture sent. Patient's blood pressure heart rate improved in the ED. She is nontoxic. Started on Cipro for her UTI. Likely infection causing her glucose elevation. She will monitor at home continue her insulin regimen. She will be continued on Cipro for 7 days. She will follow-up with her PCP. She return if any worsening symptoms. Treatment Plan: [] Disposition: Discharge Impression: 1. UTI 2. Hyperglycemia with history of diabetes 3. Elevated blood pressure 4. Atypical chest pain 5. Chronic kidney disease This note was generated with [employer] dictation software. It may contain incorrect words, spelling, and punctuation that were not noted in review of the chart prior to signing ED Disposition - Plan for ED Patient: Disposition: Home or Assisted Living Chief Complaint: General Illness Diagnosis: Urinary tract infection, Hyperglycemia, Elevated blood pressure reading with diagnosis of hypertension, Atypical chest pain, Chronic kidney disease Instructions: ED UTI Cystitis Female, ED Hyperglycemia Diabetic, ED Chest Pain Atypical Unkn Cause Prescriptions: Ciprofloxacin [Cipro] 500 mg PO BID #14 tablet Referrals: Shannan Mcgrath MD [Primary Care Provider] - 3-5 Days Fish Stone MD [STAFF PHYSICIAN] - 3-5 Days What to do if you have Problems For any increased pain, shortness of breath, bleeding, nausea or vomiting, chest pain, or any unexpected problems, contact your Primary Care Provider. Call [facility] ([phone]) or report to the closest Emergency Room. Call 911 if necessary. 05/27/17 0332 <Electronically signed by Shmuel Asher> Date Shmuel Bañuelos DO Jinigner Signature (If Indicated): Date CC: Shannan Mcgrath MD Observed: 05/27/2017 Status: F Source: [place] CULTURE, URINE 3:00 AM [facility] [place]rine Culture ORGANISM 1: Mixed Gram Positive Organisms [place] Count 1000-10,000 MIX CULTURE Mixed contaminants. Submit a new specimen if indicated. Performed By: #### M100.0650 #### [facility] [address] [place], [place], [address] URINALYSIS, ROUTINE Collected: 05/27/2017 Status: F Source: [place] (DIPSTICK) 1:40 AM [facility] Order Comment: How was Urine Obtained? CLEAN CATCH TYPE CODE TESTS RESULT OUT OF RANGE REFERENCE UNITS LAB L400.3000 Yellow COLOR Normal Yellow LAB L400.3050 Clear Normal CLARITY Sl. Cloudy LAB L400.3200 Normal mg/dl High GLUCOSE, UR 1000 LAB L400.3300 Negative mg/dL Normal BILIRUBIN URINE Negative LAB L400.3400 Negative mg/dl High 5 KETONE UR LAB L400.3465 1.002-1.030 Normal SP.GR. DIPSTX 1.020 LAB L400.3550 5.0 - 8.0 pH UR Normal 6.0 LAB L400.3600 Negative mg/dl High PROT 30 DIPSTX LAB L400.3700 Normal mg/dl Normal UROBILI Normal LAB L400.3750 Negative High NITRITE UR Positive LAB L400.3780 Negative /ul High 10 OCCULT BLOOD-UR LAB L400.3800 Negative /ul High LEUK 25 ESTERASE Performed By: #### L400.2011 #### [facility] [address] [place], [place], [address] BEDSIDE GLUCOSE Collected: 05/27/2017 Status: F Source: [place] 1:39 AM [facility] TYPE CODE TESTS RESULT OUT OF REFERENCE UNITS RANGE LAB L501.080 70-110 mg/dL High BEDSIDE GLU 348 Result Comment: MANAGEMENT OF PATIENT CARE PER NURSING PROTOCOL Performed By: #### L501.080 #### [facility] Point of Care [address] [place] [address] CHEST 1 VIEW Observed: 05/27/2017 Status: F Source: [place] (PORTABLE) 1:17 AM [facility] Imaging Services [address] [place] [address] Chest 1 View (Portable) MR#: [id number] Acct: [id number] Name: AILYN MÉNDEZ Rep #: [id number] : 1960 F 56 From: Kendrick Shin MD PCP: Shannan Mcgrath MD Status: REG ER Study: Chest 1 View (Portable) Date of Exam: 05/27/17 Exam# [id number] Ordering Dr: Shmuel Bañuelos DO STUDY: X-RAY CHEST REASON FOR EXAM: Female, 56 years old. Chest pain TECHNIQUE: Single frontal view of the chest. COMPARISON: 03/10/2017 FINDINGS: Median sternotomy wires and CABG clips. The lungs are clear and expanded. There is no demonstrated pleural abnormality. Normal size heart. Normal mediastinum and marie. Normal visualized pulmonary arteries. Normal visualized aortic arch and descending thoracic aorta. Normal visualized thoracic spine. Normal visualized ribs, clavicles, and shoulders. There is no demonstrated abnormality of the visualized soft tissue structures of the upper abdomen. RAD/Chest 1 View (Portable) IMPRESSION: No acute pulmonary findings. Electronically Signed: Kendrick Shin MD at 2:40 EDT Tel , Service support , CC: Shannan Mcgrath MD; Shmuel Bañuelos Jboss Developer: Signed ABDOMEN/PELVIS WITHOUT Observed: 05/27/2017 Status: F Source: [place] CONT 1:17 AM [facility] Imaging Services [address] [place] [address] Abdomen/Pelvis without Cont MR#: [id number] Acct: [id number] Name: AILYN MÉNDEZ Rep #: [id number] : 1960 F 56 From: Kendrick Shin MD PCP: Shannan Mcgrath MD Status: REG ER Study: Abdomen/Pelvis without Cont Date of Exam: 05/27/17 Exam# [id number] Ordering Dr: Shmuel Bañuelos DO STUDY: CT ABDOMEN AND PELVIS WITHOUT CONTRAST REASON FOR EXAM: Female, 56 years old. Wound infection RADIATION DOSAGE (If Supplied By Facility): CTDIvol = ( 13.37 ) mGy, DLP = ( 711.30 ) mGycm TECHNIQUE: Transaxial images were obtained from the dome of the diaphragm to the symphysis pubis without oral contrast, and without intravenous contrast. Sagittal and coronal images were reconstructed. Individualized dose optimization techniques were used for this CT. COMPARISON: April 19, 2017 FINDINGS: The visualized lung bases are unremarkable. The visualized portions of the heart are within normal limits. Median sternotomy wires. Field aorta aortic calcifications. Normal liver. There is non-visualization of the gallbladder, which may be secondary to either contraction or a prior cholecystectomy. Normal spleen. Normal pancreas. Normal bilateral adrenal glands. Malrotated right kidney. Normal left kidney. Normal visualized stomach. Proximal small bowel anastomosis. Left lower quadrant ileostomy. Enlarging peristomal hernia containing fat. A colectomy has been performed. The appendix is visualized and appears normal. Normal abdominal aorta. Normal inferior vena cava. Normal retroperitoneum. Normal urinary bladder. Prior ostomy site involving the right lower abdominal wall is visible. No well-formed abscess is seen. No fistulae are identified by noncontrast CT. Normal osseous structures. CT/Abdomen/Pelvis without Cont IMPRESSION: No abscesses or fistulae are identified on noncontrast CT. Enlarging fat-containing left peristomal hernia. No bowel obstruction. Electronically Signed: Kendrick Shin MD at 2:45 EDT Tel , Service support , CC: Shannan Mcgrath MD; Shmuel Bañuelos Jboss Developer: Signed ACETONE SERUM Collected: 05/27/2017 Status: F Source: [place] 12:55 AM [facility] TYPE CODE TESTS RESULT OUT OF RANGE REFERENCE UNITS LAB L501.6900 NEG Normal ACETONE SERUM NEGATIVE Performed By: #### L501.6900 #### [facility] [address] [place], [address] CBC W/DIFF, AUTOMATED Collected: 05/27/2017 Status: F Source: [place] 12:55 AM [facility] TYPE CODE TESTS RESULT OUT OF RANGE REFERENCE UNITS LAB L100.1000 4.4-11.0 K/mm3 Normal WBC 8.1 LAB L100.1200 4.2-5.4 M/mm3 Normal RBC 4.66 LAB L100.1300 12.0-15.0 g/dl Normal HGB 13.5 LAB L100.1400 37-47 % Normal HCT 40.9 LAB L100.1500 81-99 fL Normal MCV 87.8 LAB L100.1600 27.0-32.0 pg Normal MCH 29.0 LAB L100.1700 32-36 g/gl Normal MCHC 33.0 LAB L100.1810 11.6-14.6 % High RDW CV 16.1 LAB L100.1820 35.1-43.9 fl High RDW SD 51.0 LAB L100.1900 150-450 K/mm3 Normal PLT 183 LAB L100.2000 6.2-12.0 fl Normal MPV 11.7 LAB L100.2100 47-70 % Normal NEUT% 53.9 LAB L100.2200 19-41 % Normal LY% 34.7 LAB L100.2300 0-10 % Normal MONO% 5.7 LAB L100.2400 0-5 % Normal EO% 4.2 LAB L100.2500 0-1 % Normal BASO% 0.4 LAB L100.2550 0.0-0.9 % High IM GRAN % 1.100 Result Comment: IG% - Immature Granulocytes (promyelocytes, myelocytes and metamyelocytes) > 1% indicates that a LEFT SHIFT is Present. LAB L100.2620 2.0-7.7 X10 3/uL Normal Absolute Neut 4.3 LAB L100.2720 0.83-4.51 X10 3/ul Normal Absolute Lymph 2.79 Performed By: #### L100.0100 #### [facility] [address] [place], [address] BASIC METABOLIC Collected: 05/27/2017 Status: F Source: [place] PROFILE (BMP) 12:55 AM [facility] Order Comment: 'TROP' Serial specimen #1, #2, #3, or #4: 1 TYPE CODE TESTS RESULT OUT OF RANGE REFERENCE UNITS LAB L501.0100 74-106 mg/dL High GLU 403 Result Comment: Glucose result greater than or equal to 200 mg/dL suggests DIABETES MELLITUS per A.D.A. criteria. Please note revised GLUCOSE reference range effective 2017. LAB L501.1000 7-18 mg/dL High BUN 22 LAB L501.1100 0.55-1.02 mg/dL High CREAT,SERUM 1.36 Result Comment: The validity of the calculated GFR AND GFRAA in patients over 70 years has not been determined. Clinical correlation is essential. LAB L501.1110 >60 mL/min Low EST GFR 42 Result Comment: Non- GFR Calc LAB L501.1115 >60 mL/min Low EST GFR - AA 51 Result Comment: GFR Calc LAB L501.1255 ml/min Normal Estimated CRCL 43.85 LAB L501.1300 10-20 RATIO Normal BUN/CRE 16.2 LAB L501.2200 8.5-10 mg/dL Normal .1 CA 9.1 LAB L501.5300 136-14 mmol/L Normal 5 NA 138 LAB L501.5600 3.5-5. mmol/L Normal 1 K 4.0 LAB L501.5900 98-107 mmol/L Normal CL 100 LAB L501.6100 21.0-3 mmol/L Normal 2.0 CO2 24.0 LAB L501.6200 5-15 Normal GAP 14 Performed By: #### L500.2500, L501.4010 #### [facility] [address] [place], [address] TROPONIN-I Collected: 05/27/2017 Status: F Source: [place] 12:55 AM [facility] Order Comment: 'TROP' Serial specimen #1, #2, #3, or #4: 1 TYPE CODE TESTS RESULT OUT OF RANGE REFERENCE UNITS LAB L501.4010 <0.06 ng/mL Normal < 0.02 TROPONIN-I Result Comment: TROPONIN-I EXPECTED VALUES <0.05 NEGATIVE 0.06 - 0.[address] > OR = 0.[address] Performed By: #### L500.2500, L501.4010 #### [facility] [address] [place], [address] CNOV Observed: 05/24/2017 Status: COMPLETED Source: [place] 4:00 PM [facility] REPOSITORY Office Visit (PASCUAL) AILYN MÉNDEZ ([id number]) 1960 F Date Time Provider Department 05/24/17 4:00 PM DEAN ROSE During your visit today, we recorded the following information about you: Dean Rose MD [facility] 07/23/2017 12:05 PM Addendum Patient previously seen for: drainage site at previous ostomy Return to clinic for reason of: follow up after CTE CTE today: Impression IMPRESSION: Abdominal wall tract at old ileostomy site is in direct contiguity with underlying small bowel loop. ?Communication could be confirmed with fistulogram. Complaining of increasing pain , more blood, nausea, cramping. Bleeding from umbilicus. Site beginning to close at top of fistula, but same depth. Going to wound center every week, they are debriding wound. Meds: Current Outpatient Prescriptions: pregabalin (LYRICA) 50 mg capsule Take 50 mg by mouth twice daily. atorvastatin (LIPITOR) 80 mg tablet Take 1 tablet by mouth daily at bedtime. For cholesterol. fenofibrate (LOFIBRA) 200 mg capsule Take 1 capsule by mouth daily with breakfast. insulin aspart (NOVOLOG) 100 unit/mL soln Inject 20-40 Units subcutaneously three times daily with meals. ondansetron (ZOFRAN) 4 mg tablet Take 1 tablet by mouth every 8 hours as needed. insulin glargine (BASAGLAR KWIKPEN) 100 unit/mL (3 mL) inpn Inject 30 units in the morning and 40 units at night Indications: DIABETES MELLITUS COMPOUNDED PRESCRIPTION Convatec - Juanita Cohesive Ostomy Seals #[id number]: V45.; V44.2 COMPOUNDED PRESCRIPTION Convatec - Esteem 10 drainable ostomy pouch #[id number]: V45.; V44.2 DULoxetine (CYMBALTA) 60 mg capsule Take 1 capsule by mouth twice daily. COMPOUNDED PRESCRIPTION PEREZ AND NEPHEW Skin-Prep. V45.89, V44.2. Use as directed twice a week. insulin needles, DISPOSABLE, (BD INSULIN PEN NEEDLE UF) 31 gauge x 5/16 ndle Inject 4-6 times daily TENS Units windy 1 Device as directed. isosorbide dinitrate (ISORDIL, SORBITRATE) 30 mg tablet Take 1 tablet by mouth three times daily. blood sugar diagnostic (FREESTYLE LITE STRIPS) test strip TEST BLOOD SUGAR(S)5-6 DAILY. DX: DIABETES. INSULIN: YES COMPOUNDED PRESCRIPTION SHARPS IRONER OR PRESSER. Dx: E11.65. On insulin. COMPOUNDED PRESCRIPTION CONVATEC Allkare Adhesive remover. V45.89, V44.2. Use twice a week as directed. magnesium oxide (MAG-OX) 400 mg tablet Take 1 tablet by mouth three times daily. metoprolol tartrate, short acting, 50 mg tablet Take 1.5 tablets by mouth three times daily. aspirin (ASPIRIN CHILDRENS) 81 mg chewable tablet Take 81 mg by mouth once daily. nitroglycerin sublingual (NITROSTAT) 0.4 mg SL tablet Dissolve 0.4 mg under the tongue every 5 minutes as needed. clopidogrel (PLAVIX) 75 mg tablet Take 75 mg by mouth once daily. ursodiol (ACTIGALL) 300 mg capsule Take 1 capsule by mouth twice daily. pantoprazole DR (PROTONIX) 40 mg tablet Take 1 tablet by mouth daily before breakfast. Take on empty stomach, 1/2 hr before meal. oxyCODONE-acetaminophen (PERCOCET) 5-325 mg tablet Take 1 tablet by mouth every 8 hours as needed for Pain. ALPRAZolam (XANAX) 0.5 mg tablet Take 0.5 tablets by mouth twice daily as needed. buPROPion (WELLBUTRIN) 75 mg tablet Take 1 tablet by mouth twice daily. (Patient taking differently: Take 100 mg by mouth twice daily. ) furosemide (LASIX) 20 mg tablet Take 1 tablet by mouth once daily. No current facility-administered medications for this visit. Vitals: There were no vitals taken for this visit. Abdominal examination:Normal. She has a small wound in the right lower quadrant that shows no signs of stool or gas, and no skin irritation suggestive of an enterocutaneous fistula. She is understandably irritated with the lack of a firm diagnosis when she is having diverging opinions.. I told her I would not operate on her without absolute confirmation that there is a fistula. She will have a fistulogram performed in the local hospital. Dean Rose M.D. 07/23 I reviewed the images with Radiology and there is no fistula now but the tract is in direct contact with the bowel. Will need laparotomy to do safely. I have spoken to Mrs. Méndez and she would like to set it up. I L Referring Provider: SELF [200] Allergies As of Date: 05/24/2017 Noted Allergy Reaction CINNAMON 06/06/2008 10 - Anaphylaxis Comments: Airborne and ingested reactions: throat AND lips swell, SOB DICYCLOMINE 08/18/2013 11 - Vomiting AZULFIDINE (SULFASALAZINE) 10/12/2008 4 - Hives CODEINE 06/06/2008 5 - Intolerance Comments: Stops ileostomy functioning-severe constipation FLAGYL (METRONIDAZOLE HCL) 08/18/2013 4 - Hives FLUZONE HIGH-DOSE 2015- (PF) (F*01/08/2016 12 - Shortness of Breath Comments: Difficulty breathing, chest pain GLUCOPHAGE (METFORMIN HCL) 09/11/2013 8 - GI Upset INFLUENZA VIRUS VACCINES 12/17/2015 12 - Shortness of Breath 14 - Other: See Comments Comments: Chest pain PENICILLINS 02/12/1999 4 - Hives SULFA (SULFONAMIDE ANTIBIOTICS) 10/12/2008 4 - Hives VICTOZA (LIRAGLUTIDE) 07/22/2016 14 - Other: See Comments Comments: Acute pancreatitis Date Reviewed: 05/24/2017 Reviewed by: Anastacio (Rn) JUVENCIO Acharya - Fully Assessed Reason for Visit: Established Patient [175] Primary Visit Diagnosis:Other ulcerative colitis without complication (HCC) [K51.80] Other Visit Diagnosis:Lower abdominal pain [R10.30] Order(s):XR SINUS TRACT INJECTION [1288777] Order #: [id number] FUTURE Prescriptions as of 05/24/2017 Sig: PREGABALIN 50 MG CAPSULE Take 50 mg by mouth twice osiel* ATORVASTATIN 80 MG TABLET Take 1 tablet by mouth daily * FENOFIBRATE MICRONIZED 200 MG* Take 1 capsule by mouth daily* INSULIN ASPART U-100 100 UNI* Inject 20-40 Units subcutaneo* ONDANSETRON HCL 4 MG TABLET Take 1 tablet by mouth every * INSULIN GLARGINE (U-100) 100 * Inject 30 units in the mornin* COMPOUNDED PRESCRIPTION Convatec - Juanita Cohesive Ost* COMPOUNDED PRESCRIPTION Convatec - Esteem 10 draina* DULOXETINE 60 MG CAPSULE,JOIE* Take 1 capsule by mouth twice* COMPOUNDED PRESCRIPTION PEREZ AND NEPHEW Skin- Prep. V4* PEN NEEDLE, DIABETIC 31 GAUGE* Inject 4-6 times daily TRANSCUTANEOUS ELECTRICAL NER* 1 Device as directed. ISOSORBIDE DINITRATE 30 MG TA* Take 1 tablet by mouth three * BLOOD SUGAR DIAGNOSTIC STRIPS TEST BLOOD SUGAR(S)5-6 DAILY.* COMPOUNDED PRESCRIPTION SHARPS IRONER OR PRESSER. Dx: E11.65* COMPOUNDED PRESCRIPTION CONVATEC Allkare Adhesive rem* MAGNESIUM OXIDE 400 MG TABLET Take 1 tablet by mouth three * METOPROLOL TARTRATE 50 MG TAB* Take 1.5 tablets by mouth thr* ASPIRIN 81 MG CHEWABLE TABLET Take 81 mg by mouth once alexander* NITROGLYCERIN 0.4 MG SUBLINGU* Dissolve 0.4 mg under the ton* CLOPIDOGREL 75 MG TABLET Take 75 mg by mouth once alexander* URSODIOL 300 MG CAPSULE Take 1 capsule by mouth twice* PANTOPRAZOLE 40 MG TABLET,DEL* Take 1 tablet by mouth daily * OXYCODONE-ACETAMINOPHEN 5 MG-* Take 1 tablet by mouth every * ALPRAZOLAM 0.5 MG TABLET Take 0.5 tablets by mouth twi* BUPROPION HCL 75 MG TABLET Take 1 tablet by mouth twice * Patient taking differently: Take 100 mg by mouth twice da* FUROSEMIDE 20 MG TABLET Take 1 tablet by mouth once d* Medication notes this encounter ONDANSETRON HCL 4 MG TABLET >> Anastacio Acharya RN, RN 05/24/2017 3:52 PM >> ANASTACIO ACHARYA May 24, 2017 3:52 PM INSULIN GLARGINE (U-100) 100 UNIT/ML (3 ML) SUBCUTANEOUS PEN >> Anastacio Acharya RN, RN 05/24/2017 3:53 PM >> ANASTACIO ACHARYA May 24, 2017 3:53 PM taking 60 units in the morning, 70 units at night BUPROPION HCL 75 MG TABLET >> Anastacio Acharya RN, RN 05/24/2017 3:51 PM >> ANASTACIO ACHARYA May 24, 2017 3:51 PM no longer taking Problem List As Of Date 05/24/2017 Noted Resolved Uncontrolled diabetes mellitus (HCC) [E11.65] INVALID FOR*04/04/2015 CAD (coronary artery disease) [I25.10] INVALID FOR* More... S/p total colectomy [Z90.49] INVALID FOR* More... COPD (chronic obstructive pulmonary disease) (H*INVALID FOR* More... Hyperlipidemia [E78.5] INVALID FOR* HTN (hypertension) [I10] INVALID FOR* CHF (congestive heart failure) ([facility]) [I50.9] INVALID FOR* Chest pain at rest [R07.9] INVALID FOR* More... ANKITA on CPAP [G47.33, Z99.89] INVALID FOR* Depression with anxiety [F41.8] INVALID FOR* CKD (chronic kidney disease) stage 3, GFR 30-59*INVALID FOR* Pulmonary hypertension, moderate to severe (HCC*INVALID FOR* Migraine [G43.909] INVALID FOR* Ileostomy in place ([facility]) [Z93.2] INVALID FOR* Hypoxemia [R09.02] INVALID FOR* Open wound of abdominal wall, anterior, complic*INVALID FOR*07/05/2015 Pain in right elbow [M25.521] INVALID FOR*03/24/2016 Diabetes mellitus type 2, uncontrolled, without*INVALID FOR* Low back pain without sciatica [M54.5] INVALID FOR* More... Neuropathic pain of chest [M79.2] INVALID FOR* More... Psoriasis [L40.9] INVALID FOR* Lower abdominal pain [R10.30] INVALID FOR* Lower back pain [M54.5] INVALID FOR*01/10/2016 Chronic bilateral low back pain with right-side*INVALID FOR* Lumbar facet arthropathy (HCC) [M46.96] INVALID FOR* BMI 32.0-32.9,adult [Z68.32] INVALID FOR* Encounter Status:Closed by DEAN ROSE MD, FACS on 05/24/17 PROGRESS Observed: 05/24/2017 Status: COMPLETED Source: [place] 3:54 PM [facility] REPOSITORY HNO ID: [id number] Author: Dean Rose Service: (none) Author Type: Physician Type: Progress Notes Filed: 07/23/2017 12:05 PM Note Text: Patient previously seen for: drainage site at previous ostomy Return to clinic for reason of: follow up after CTE CTE today: Impression IMPRESSION: Abdominal wall tract at old ileostomy site is in direct contiguity with underlying small bowel loop. ?Communication could be confirmed with fistulogram. Complaining of increasing pain , more blood, nausea, cramping. Bleeding from umbilicus. Site beginning to close at top of fistula, but same depth. Going to wound center every week, they are debriding wound. Meds: Current Outpatient Prescriptions: pregabalin (LYRICA) 50 mg capsule Take 50 mg by mouth twice daily. atorvastatin (LIPITOR) 80 mg tablet Take 1 tablet by mouth daily at bedtime. For cholesterol. fenofibrate (LOFIBRA) 200 mg capsule Take 1 capsule by mouth daily with breakfast. insulin aspart (NOVOLOG) 100 unit/mL soln Inject 20-40 Units subcutaneously three times daily with meals. ondansetron (ZOFRAN) 4 mg tablet Take 1 tablet by mouth every 8 hours as needed. insulin glargine (BASAGLAR KWIKPEN) 100 unit/mL (3 mL) inpn Inject 30 units in the morning and 40 units at night Indications: DIABETES MELLITUS COMPOUNDED PRESCRIPTION Convatec - Juanita Cohesive Ostomy Seals #[id number]: V45.89; V44.2 COMPOUNDED PRESCRIPTION Convatec - Esteem 10 drainable ostomy pouch #[id number]: V45.89; V44.2 DULoxetine (CYMBALTA) 60 mg capsule Take 1 capsule by mouth twice daily. COMPOUNDED PRESCRIPTION PEREZ AND NEPHEW Skin-Prep. V45.89, V44.2. Use as directed twice a week. insulin needles, DISPOSABLE, (BD INSULIN PEN NEEDLE UF) 31 gauge x 5/16 ndle Inject 4-6 times daily TENS Units windy 1 Device as directed. isosorbide dinitrate (ISORDIL, SORBITRATE) 30 mg tablet Take 1 tablet by mouth three times daily. blood sugar diagnostic (FREESTYLE LITE STRIPS) test strip TEST BLOOD SUGAR(S)5-6 DAILY. DX: DIABETES. INSULIN: YES COMPOUNDED PRESCRIPTION SHARPS IRONER OR PRESSER. Dx: E11.65. On insulin. COMPOUNDED PRESCRIPTION CONVATEC Allkare Adhesive remover. V45.89, V44.2. Use twice a week as directed. magnesium oxide (MAG-OX) 400 mg tablet Take 1 tablet by mouth three times daily. metoprolol tartrate, short acting, 50 mg tablet Take 1.5 tablets by mouth three times daily. aspirin (ASPIRIN CHILDRENS) 81 mg chewable tablet Take 81 mg by mouth once daily. nitroglycerin sublingual (NITROSTAT) 0.4 mg SL tablet Dissolve 0.4 mg under the tongue every 5 minutes as needed. clopidogrel (PLAVIX) 75 mg tablet Take 75 mg by mouth once daily. ursodiol (ACTIGALL) 300 mg capsule Take 1 capsule by mouth twice daily. pantoprazole DR (PROTONIX) 40 mg tablet Take 1 tablet by mouth daily before breakfast. Take on empty stomach, 1/2 hr before meal. oxyCODONE-acetaminophen (PERCOCET) 5-325 mg tablet Take 1 tablet by mouth every 8 hours as needed for Pain. ALPRAZolam (XANAX) 0.5 mg tablet Take 0.5 tablets by mouth twice daily as needed. buPROPion (WELLBUTRIN) 75 mg tablet Take 1 tablet by mouth twice daily. (Patient taking differently: Take 100 mg by mouth twice daily. ) furosemide (LASIX) 20 mg tablet Take 1 tablet by mouth once daily. No current facility-administered medications for this visit. Vitals: There were no vitals taken for this visit. Abdominal examination:Normal. She has a small wound in the right lower quadrant that shows no signs of stool or gas, and no skin irritation suggestive of an enterocutaneous fistula. She is understandably irritated with the lack of a firm diagnosis when she is having diverging opinions.. I told her I would not operate on her without absolute confirmation that there is a fistula. She will have a fistulogram performed in the local hospital. Dean Rose M.D. 07/23 I reviewed the images with Radiology and there is no fistula now but the tract is in direct contact with the bowel. Will need laparotomy to do safely. I have spoken to Mrs. Méndez and she would like to set it up. I L CT ENTEROGRAPHY W IVCON Observed: 05/24/2017 Status: F Source: [place] 1:06 PM [facility] REPOSITORY * * *Final Report* * * DATE OF EXAM: May 24 2017 1:06PM [facility] [place]CON / PROCEDURE REASON: Fistula of intestine * * * * Physician Interpretation * * * * CT ABDOMEN AND PELVIS WITH IV CONTRAST CLINICAL HISTORY: status post colectomy and an ileostomy in the right lower quadrant for ulcerative colitis. She indicates that there was a problem with the initial ileostomy from a functional standpoint and it was relocated to the left lower quadrant from the original right lower quadrant site. In the interim, she had a cholecystectomy that was performed for pancreatitis. Following that, the site of the original ostomy developed an abscess that was subsequently drained and it continues to drain. TECHNIQUE: CT of the abdomen and pelvis was performed using standard technique. Contrast: IV: 150 ml of Omnipaque 300 Oral: [address] Radiation dose: Integrated Dose-length product (DLP) for this visit = 439 mGy*cm. COMPARISON: 04/19/2017 and 08/18/2015 there RESULT: Liver: No focal abnormality.. Biliary: No bile duct dilation. Gallbladder is absent. Spleen: No mass. No splenomegaly. Pancreas: No mass or duct dilation. Adrenals: No mass. Kidneys: No mass or hydronephrosis.. Right kidney is ptotic. GI tract: There has been total abdominal colectomy. There appears to be a short rectal stump. There is a left lower quadrant ileostomy. There is a small bowel staple line in the right midabdomen. No hyperenhancing, dilated, or thickened small bowel. There is a hyperenhancing tract extending from the skin of the right upper pelvis to the level of the aponeurosis along the lateral border of the rectus muscle. On sagittal oblique reformatted images, the tract appears in direct contiguity with a small bowel loop but communication with the small bowel lumen cannot be confirmed on this exam. Lymph nodes: No abdominal or pelvic lymphadenopathy. Mesentery/Peritoneum: No ascites or mass. Vasculature: The celiac axis and SMA are patent. The portal vein and branches, splenic vein, SMV, and hepatic veins are patent. There is atherosclerotic calcification of the aorta and iliac arteries without dilation. Pelvis: Uterus is absent. There are collateral venous structures in the midline pelvis. Bones/Soft Tissues: No focal bone lesion. Lung Bases: Minimal patchy increased opacity at the medial lung bases. IMPRESSION: Abdominal wall tract at old ileostomy site is in direct contiguity with underlying small bowel loop. Communication could be confirmed with fistulogram. version 10.08.15 Jb[employer] Developer: BLUE Transcribe Date/Time: May 24 2017 2:02P Dictated by : ASHLYN DIAZ MD This examination was interpreted and the report reviewed and electronically signed by: ASHLYN DIAZ MD on May 24 2017 2:24PM EST [id number] PROGRESS Observed: 05/24/2017 Status: COMPLETED Source: [place] 12:59 PM [facility] REPOSITORY HNO ID: [id number] Author: LUPE Miller (Ct) Service: Radiology Author Type: Clinical Tank Filler Type: Progress Notes Filed: 05/24/2017 1:06 PM Note Text: Radiology Service Progress Note PATIENT NAME: Ailyn Méndez DATE OF SERVICE: May 24, 2017 TIME: 12:59 PM PATIENT IDENTITY VERIFICATION COMPLETED USING TWO (2) METHODS: Patient confirmed name verbally and ID band matches.. PATIENT GENDER DATA: Female. status: : No status: NO. PATIENT RELEVANT IMPLANT DATA REVIEWED: Yes RADIOLOGY DEPARTMENT: CT; Exam(s) Completed: enterography PERIPHERAL IV DATA: Site assessment: Clean,Dry and Intact, Site disposition Discontinued SIGNED BY: LUPE Miller May 24, 2017 12:59 PM PROGRESS Observed: 05/24/2017 Status: COMPLETED Source: [place] 11:55 AM [facility] REPOSITORY HNO ID: [id number] Author: Bindu (Rn) JUVENCIO Stewart Service: Radiology Author Type: Registered Nurse Type: Progress Notes Filed: 05/24/2017 12:06 PM Note Text: Radiology Service Progress Note PATIENT NAME: Ailyn Méndez DATE OF SERVICE: May 24, 2017 TIME: 11:55 AM PATIENT WEIGHT: 200 LBS PATIENT IDENTITY VERIFICATION COMPLETED USING TWO (2) METHODS: Patient confirmed name verbally and ID band matches.. PATIENT GENDER DATA: Female. status: : No status: NO. CONTRAST INDUCED NEPHROPATHY RISK FACTORS: Diabetic: Yes. Current medication(s): Insulin Glucose Monitoring: YES Scan Performed: YES. Patient currently has insulin pump?: No., Known Chronic Kidney Disease (CKD) and Congestive Heart Failure (CHF) CREATININE: Creatinine Date Value Ref Range Status 09/15/2016 Test sent to [facility]. 0.58 - 0.96 mg/dL Final Comment: Account Credited HIDE 07/21/2016 1.25 (H) 0.58 - 0.96 mg/dL Final 06/23/2016 1.52 (H) 0.58 - 0.96 mg/dL Final eGFR-All Other Races Date Value Ref Range Status 09/15/2016 Test sent to [facility]. . Final Comment: Account Credited HIDE eGFR- Date Value Ref Range Status 09/15/2016 Test sent to [facility]. Final Comment: Account Credited HIDE P.O.C.T. RESULTS: POC done: Yes, See Lab Tab May 24, 2017 TREATMENT: No Hydration needed. ALLERGIES: Reviewed and unchanged CONTRAST ALLERGY: NO. IV SITE: Ambulatory: A peripheral IV was started in the Right antecubital site with a Angio cath: 20 gauge. and A Saline lock was inserted per protocol IV SITE APPEARANCE: Clean,Dry and Intact SIGNED BY: Bindu Stewart RN May 24, 2017 11:55 AM INTERNAL MEDICINE Observed: 05/07/2017 Status: F Source: [place] OFFICE VISIT 5:15 PM [facility] [place] [facility] [address] [phone] OFFICE VISIT Date of Service: 05/05/17 MR#: [id number] Acct: [id number] Name: AILYN MÉNDEZ Rep #: [id number] : 1960 Provider: Shannan Mcgrath MD Age/Sex: 56/F [place] [facility] [place]: Signed Intake Vital Signs05/05/17 Height 5 ft 7 in Intake Visit Reasons: 3 M FU Chief Complaint: follow-up visit Is patient in pain?: Yes (abdomen) Pain scale (1-10): 8 Allergies cinnamon [Cinnamon] Allergy (Verified 04/16/17 10:11) Anaphylaxis Influenza Virus Vaccines Allergy (Verified 04/16/17 10:11) Shortness of breath liraglutide [From Victoza] Allergy (Verified 04/16/17 10:11) Anaphylaxis metronidazole [From Flagyl] Allergy (Verified 04/16/17 10:11) Hives Metronidazole HCl [From Flagyl] Allergy (Verified 04/16/17 10:11) Hives Penicillins Allergy (Verified 04/16/17 10:11) Hives Sulfa (Sulfonamide Antibiotics) Allergy (Verified 04/16/17 10:11) Hives codeine Adverse Reaction (Verified 04/16/17 10:11) Stops Ileostomy dicyclomine HCl [From Bentyl] Adverse Reaction (Verified 04/16/17 10:11) Nausea metformin HCl [From Glucophage] Adverse Reaction (Verified 04/16/17 10:11) Nausea Gbvmgpg-Tjj-Fls Reductase Inhibitor Adverse Reaction (Verified 04/16/17 10:11) Nausea/joints ache Medications ALPRAZolam [Xanax] 0.5 mg PO QHS 01/21/15 [History Confirmed 04/16/17] Aspirin [Aspirin, Baby] 81 mg PO DAILY@0800 01/21/15 [History Confirmed 04/16/17] Atorvastatin Calcium [Lipitor] 80 mg PO QHS 01/21/15 [History Confirmed 04/16/17] Clopidogrel Bisulfate [Plavix] 75 mg PO DAILY 01/21/15 [History Confirmed 04/16/17] Magnesium Oxide [Mag-Ox 400] 400 mg PO BID 01/21/15 [History Confirmed 04/16/17] Metoprolol Tartrate [Lopressor (beta esha)] 75 mg PO TID 01/21/15 [History Confirmed 04/16/17] Nitroglycerin [Nitrostat] 0.4 mg SL Q5M PRN 07/12/16 [History Confirmed 04/16/17] Isosorbide DN [Isordil] 30 mg PO TID 09/03/16 [History Confirmed 04/16/17] Ondansetron HCl [Zofran] 4 mg PO Q8H PRN PRN #20 tab 09/05/16 [Rx Confirmed 04/16/17] Baclofen 10 mg PO QHS 11/24/16 [History Confirmed 04/16/17] Calcium Carbonate [Calcium] 600 mg PO BID 11/24/16 [History Confirmed 04/16/17] Cholecalciferol (Vitamin D3) [Vitamin D3] 2,000 unit PO DAILY 11/24/16 [History Confirmed 04/16/17] loperamide 2 mg tablet 2 mg PO .qid PRN tab 02/12/17 [History Confirmed 04/16/17] omeprazole 20 mg capsule,delayed release 20 mg PO QDAY 02/12/17 [History Confirmed 04/16/17] triamcinolone acetonide 0.1 % topical cream 1 applic TOPICAL BID 02/12/17 [History Confirmed 04/16/17] albuterol sulfate HFA 90 mcg/actuation aerosol inhaler 1 puff INHALATION Q6H PRN #1 inh 03/10/17 [Rx Confirmed 04/16/17] dextromethorphan-guaifenesin ER 60 mg-1,200 mg tab,extend release,12hr 1 tab PO Q12H #14 tab 03/10/17 [Rx Confirmed 04/16/17] blood sugar diagnostic strips See Dose Instructions .ROUTE .MEDSUPPLY #20 ea 03/23/17 [History Confirmed 04/16/17] insulin aspart U-100 100 unit/mL subcutaneous pen See Label Instructions SC TID ml 03/23/17 [History Confirmed 04/16/17] insulin glargine (U-100) 100 unit/mL (3 mL) subcutaneous pen 43 unit SC QDAY ml 03/23/17 [History Confirmed 04/16/17] miconazole nitrate 2 % topical powder 1 applic TOPICAL QDAY 03/23/17 [History Confirmed 04/16/17] duloxetine 30 mg capsule,delayed release 30 mg PO BID #60 cap 05/05/17 [Rx Confirmed 05/05/17] hydrocortisone 2.5 % topical ointment 1 applic TOPICAL BID #28.35 g 05/05/17 [Rx Confirmed 05/05/17] pregabalin 100 mg capsule 100 mg PO BID #60 cap 05/05/17 [Rx Confirmed 05/05/17] tramadol 50 mg tablet 50 mg PO BID tab 05/05/17 [History Confirmed 05/05/17] [facility] Medical History CAD (coronary artery disease) (Chronic) Hyperlipidemia (Chronic) Benign essential HTN (Chronic) DM2 (diabetes mellitus, type 2) (Chronic) Hx of coronary artery disease (Chronic) History of coronary artery stent placement (Chronic 2012) Chronic renal insufficiency (Acute) Menieres disease (Acute) Sleep apnea (Acute) Syncope (Acute) Ulcerative colitis (Acute) Vertigo (Acute) Surgical History S/P CABG (coronary artery bypass graft) (Chronic 2012) H/O colectomy (Acute) H/O total hysterectomy (Acute) gallbdder removal (Acute) ileostomy (Acute) left thumb surgery (Acute) lysis of adhesion (Acute) vestibular nerve surgery for Meniere's (Acute) Family History Mother CVA (cerebral vascular accident) Diabetes Brother Heart disease of CAD at 65 Myocardial infarction Pancreatitis Father Cancer lymphomia Lymphoma Grandmother Myocardial infarction of CT in her 70s Sister COPD (chronic obstructive pulmonary disease) Social History Smoking Status: Former smoker alcohol intake: never substance use type: does not use caffeine: Yes Type: coffee eating out: 1-3 times/week what type of physical activity do you participate in: none seatbelt use: always do you feel safe at home: Yes HPI HPI Chief Complaint: follow-up visit Details: AILYN MÉNDEZ, is a 56yo F who presents to the office today for follow-up of her chronic medical conditions. She has several acute concerns/complaints at this time. She currently follows up at the wound center for a right lower quadrant wound. She also follows up at the [facility] and plan is for imaging/study tomorrow. She however reports increased mid abdominal cramping associated with nausea. She has a history of gastroparesis and has noted worsening of her sugars recently. She is currently not on any medication for her gastroparesis and per patient she was told not to take Zofran until after her study tomorrow. She also reports history of restrictive lung disease/COPD diagnosed several years ago. She has noted worsening shortness of breath lately. This is said to be worse with activity. She had followed up with the pulmonary group however has not done so recently. Last pulmonary function test was said to be several years ago. She is also concerned about occasional dizziness and fall. She states that she has a couple episodes every month. She denies any known precipitating factors however she is on a couple of potentially sedating medications. She denies alcohol abuse. ROS Const Constitutional: Positive for headache(s); no weight change, body ache, chills, fatigue, sleep problems, fever(s), change in appetite, snoring, weakness, frequent falls or excessive sweating Eyes Eyes: No change in vision, eye pain, light sensitivity or blurry vision ENT ENT: Positive for headache(s); no abnormal hearing, ear pain, tinnitus, nasal congestion, sore throat or neck pain Resp Respiratory: No snoring, cough, shortness of breath or wheezing Cardio Cardiology: No excessive sweating, chest pain with exertion, shortness of breath, dyspnea on exertion, palpitations, orthopnea or lightheadedness Gastro GI: Positive for abdominal pain, nausea/dyspepsia and cramping; no change in bowel habits, constipation, diarrhea or vomiting Musc Musculoskeletal: No neck pain, abnormal walking, joint pain, back pain, limited range of motion, numbness or tingling Skin Skin: Positive for other (states that psoriasis is worse); no redness, dry skin, itching, lesions, wounds or rash Breast Breast: Positive for other (states that psoriasis is worse) Neuro Neurology: Positive for headache(s); no weakness, frequent falls, abnormal hearing, abnormal walking, numbness, tingling, abnormal speech, dizziness or memory loss Psych Psychiatric: No change in appetite, No memory loss, Positive for anxiety (feels overwhelmed by health concerns), Positive for depression, No Thoughts of harming yourself/Others Endo Endocrine: No fatigue, excessive sweating, cold intolerance, increased thirst/drinking, heat intolerance, flushing or increased hunger Aller/Imm Allergy/Immunologic: No wheezing, itchy eyes, hives or seasonal allergy symptoms Jose/Lymp Hematologic/Lymphatic: Positive for easy bruising; no easy bleeding or enlarged lymph nodes Exam Const General: cooperative, no acute distress Orientation: alert, awake, oriented x3 HENAR Head: atraumatic, normocephalic Ears: hearing grossly normal bilaterally Resp Effort AND Inspection: normal respiratory effort, able to speak in complete sentences Auscultation: Bilateral: Clear to Auscultation Cardio Rate: regular rate Rhythm: regular rhythm Heart Sounds: S1 normal, S2 normal GI Other: Ileostomy and right lower quadrant wound area looks clean and dry. Scar tissue noted. Mild tenderness to palpation. Skin Other: Areas of plaque-like maculopapular lesions noted diffusely especially on the nose elbows and lower extremity. Neuro General: alert, awake, oriented x3, moves all extremities, CN's II-XI intact bilaterally Extrem General: no pedal edema Psych Appearance: grossly normal Mood: congruent mood Affect: normal affect Assessment AND Plan 1. Abdominal pain R10.9 Plan She describes a cramping midline abdominal pain said to be intermittent and associated with nausea. Patient with a chronic history of gastroparesis which had been stable however most recently she has had poorly controlled blood sugars. Current symptoms most likely related to gastroparesis and unlikely pancreatitis. Per patient her surgeon at the [facility] advised her not to take any Zofran until after her investigations. Advised patient to increase her insulin dose by 2 units every 2-3 days if blood fasting blood sugar remains over 160mg/dl. Small frequent meals. Also advised to call if she notes any worsening symptoms Follow up in 1 month. 2. Shortness of breath R06.02 Plan Patient with chronic history of shortness of breath/respiratory symptoms however this has been stable until most recently when she noted worsening shortness of breath with exertion. She reports pulse ox during a doctor's office of about 88. Subsequent pulse ox readings have actually been within normal. She has a prior recorded history of pulmonary hypertension, restrictive lung disease/COPD. Prior history of oxygen use. Last pulmonary function test was several years ago per patient. Will order a pulmonary function test. Scheduled to follow-up with Dr. Baca in about 2 months. Continue albuterol inhaler as needed for wheezing/bronchospasm. Patient advised to call the office or go to the ER if she notes worsening shortness of breath. 3. Multiple falls R29.6 Plan Patient reports multiple episodes of falls in a month. This has been ongoing. Possibly due to side effect of her medications. Will reduce Cymbalta from 60mg BID to 30mg BID. Dc Wellbutrin Reduce Lyrica to 75mg BID at next visit. Baclofen only as needed. Follow up in 1 month. 4. Psoriasis L40.9 Plan Seems to have been worsening recently. Hydrocortisone 2.5% ointment to the face. Had been prescribed triamcinolone in the past and still has a large amount left. Will start on Clobetasol subsequently. Possible biologics in the future. Will monitor 5. Type 2 diabetes mellitus with stage 3 chronic kidney disease, with long-term current use of insulin E11.9 Plan Had better control until recently. Poor control possibly due to recent stress and abdominla wound. Increase Lantus by 2 units every 3rd day for FBS > 180mg/dl. Stop after 10unit increase. Continue follow up with Endocrinology as scheduled. Per patient, plan is possibly for an Insulin pump which i believe will be beneficial to patient. Will follow. This note was generated with [employer] dictation software. It may contain incorrect words, spelling, and punctuation that were not noted in checking the note before signing. Plan Detail Other Orders Orders: Other Medications New: Discontinued: Follow Up 1 Month Coding Level of Care Code Off vis,est,level 4 Diagnoses Abdominal pain R10.9 Shortness of breath R06.02 Multiple falls R29.6 Psoriasis L40.9 Type 2 diabetes mellitus with stage 3 chronic kidney disease, with long-term current use of insulin E11.9 05/07/17 2505 <Electronically signed by Shannan Mcgrath MD> Date Shannan Mcgrath MD Cosigner Signature: Date (if applicable) CC: SURGERY VISIT REPORT Observed: 04/29/2017 Status: F Source: [place] 4:08 PM [facility] [place] [facility] [address] [address] OFFICE VISIT Date of Service: 04/16/17 MR#: [id number] Acct: [id number] Name: AILYN MÉNDEZ Rep #: [id number] : 1960 Provider: Thai Denise MD Age/Sex: 56/F Location: [facility] Status: Signed Intake Vital Signs04/29/17 Body Mass Index (BMI) 31.0 04/16/17 Body Mass Index (BMI) 31.0 Intake Visit Reasons: Wound Care 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: No Is patient in pain?: No Allergies cinnamon [Cinnamon] Allergy (Verified 04/16/17 10:11) Anaphylaxis Influenza Virus Vaccines Allergy (Verified 04/16/17 10:11) Shortness of breath liraglutide [From Victoza] Allergy (Verified 04/16/17 10:11) Anaphylaxis metronidazole [From Flagyl] Allergy (Verified 04/16/17 10:11) Hives Metronidazole HCl [From Flagyl] Allergy (Verified 04/16/17 10:11) Hives Penicillins Allergy (Verified 04/16/17 10:11) Hives Sulfa (Sulfonamide Antibiotics) Allergy (Verified 04/16/17 10:11) Hives codeine Adverse Reaction (Verified 04/16/17 10:11) Stops Ileostomy dicyclomine HCl [From Bentyl] Adverse Reaction (Verified 04/16/17 10:11) Nausea metformin HCl [From Glucophage] Adverse Reaction (Verified 04/16/17 10:11) Nausea Hcrjppw-Wjp-Wof Reductase Inhibitor Adverse Reaction (Verified 04/16/17 10:11) Nausea/joints ache Medications ALPRAZolam [Xanax] 0.5 mg PO QHS 01/21/15 [History Confirmed 04/16/17] Aspirin [Aspirin, Baby] 81 mg PO DAILY@0800 01/21/15 [History Confirmed 04/16/17] Atorvastatin Calcium [Lipitor] 80 mg PO QHS 01/21/15 [History Confirmed 04/16/17] Clopidogrel Bisulfate [Plavix] 75 mg PO DAILY 01/21/15 [History Confirmed 04/16/17] Duloxetine Hcl [Cymbalta] 60 mg PO BID 01/21/15 [History Confirmed 04/16/17] Magnesium Oxide [Mag-Ox 400] 400 mg PO BID 01/21/15 [History Confirmed 04/16/17] Metoprolol Tartrate [Lopressor (beta esha)] 75 mg PO TID 01/21/15 [History Confirmed 04/16/17] Bupropion HCl [Wellbutrin Xl] 100 mg PO TID 03/28/16 [History Confirmed 04/16/17] Nitroglycerin [Nitrostat] 0.4 mg SL Q5M PRN 07/12/16 [History Confirmed 04/16/17] Isosorbide DN [Isordil] 30 mg PO TID 09/03/16 [History Confirmed 04/16/17] Pregabalin [Lyrica] 100 mg PO BID 09/03/16 [History Confirmed 04/16/17] Ondansetron HCl [Zofran] 4 mg PO Q8H PRN PRN #20 tab 09/05/16 [Rx Confirmed 04/16/17] Baclofen 10 mg PO QHS 11/24/16 [History Confirmed 04/16/17] Calcium Carbonate [Calcium] 600 mg PO BID 11/24/16 [History Confirmed 04/16/17] Cholecalciferol (Vitamin D3) [Vitamin D3] 2,000 unit PO DAILY 11/24/16 [History Confirmed 04/16/17] TraMADol [Ultram (G)] 50 mg PO QHS 11/24/16 [History Confirmed 04/16/17] loperamide 2 mg tablet 2 mg PO .qid PRN tab 02/12/17 [History Confirmed 04/16/17] omeprazole 20 mg capsule,delayed release 20 mg PO QDAY 02/12/17 [History Confirmed 04/16/17] triamcinolone acetonide 0.1 % topical cream 1 applic TOPICAL BID 02/12/17 [History Confirmed 04/16/17] albuterol sulfate HFA 90 mcg/actuation aerosol inhaler 1 puff INHALATION Q6H PRN #1 inh 03/10/17 [Rx Confirmed 04/16/17] dextromethorphan-guaifenesin ER 60 mg-1,200 mg tab,extend release,12hr 1 tab PO Q12H #14 tab 03/10/17 [Rx Confirmed 04/16/17] prednisone 20 mg tablet 40 mg PO QDAY #10 tab 03/10/17 [Rx Confirmed 04/16/17] blood sugar diagnostic strips See Dose Instructions .ROUTE .MEDSUPPLY #20 ea 03/23/17 [History Confirmed 04/16/17] insulin aspart U-100 100 unit/mL subcutaneous pen See Label Instructions SC TID ml 03/23/17 [History Confirmed 04/16/17] insulin glargine (U-100) 100 unit/mL (3 mL) subcutaneous pen 43 unit SC QDAY ml 03/23/17 [History Confirmed 04/16/17] miconazole nitrate 2 % topical powder 1 applic TOPICAL QDAY 03/23/17 [History Confirmed 04/16/17] [facility] Medical History CAD (coronary artery disease) (Chronic) Hyperlipidemia (Chronic) Benign essential HTN (Chronic) DM2 (diabetes mellitus, type 2) (Chronic) Hx of coronary artery disease (Chronic) History of coronary artery stent placement (Chronic 2012) Chronic renal insufficiency (Acute) Menieres disease (Acute) Sleep apnea (Acute) Syncope (Acute) Ulcerative colitis (Acute) Vertigo (Acute) Surgical History S/P CABG (coronary artery bypass graft) (Chronic 2012) H/O colectomy (Acute) H/O total hysterectomy (Acute) gallbdder removal (Acute) ileostomy (Acute) left thumb surgery (Acute) lysis of adhesion (Acute) vestibular nerve surgery for Meniere's (Acute) Family History Mother CVA (cerebral vascular accident) Diabetes Brother Heart disease of CAD at 65 Myocardial infarction Pancreatitis Father Cancer lymphomia Lymphoma Grandmother Myocardial infarction of CT in her 70s Sister COPD (chronic obstructive pulmonary disease) Social History Smoking Status: Former smoker alcohol intake: never substance use type: does not use caffeine: Yes Type: coffee eating out: 1-3 times/week what type of physical activity do you participate in: none seatbelt use: always do you feel safe at home: Yes HPI HPI HPI: HPI: AILYN MÉNDEZ, is a 56 F who presents to the office today for chronic wound in the right lower quadrant. I see the patient in the past for this she has been going to the wound center and has a 4 cm tract from her right lower quadrant incision down to the fascia. It is packed every day yellow foul-smelling fluid and solid material comes out of it. It is behaving as a enterocutaneous fistula. Exam GI Other: GI Other: Previous incision of the right lower quadrant has a centimeter opening that tracks down approximately 4 cm. The packing that was taken out looks like purulent material and is very suspicious for an enterocutaneous fistula. There is no abdominal tenderness there is no signs of cellulitis. Assessment AND Plan Problems 1. 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 I am going to hold off on getting any CAT scans on her at this time I believe the fistulogram will give us more useful information. This still could be just a abscess suture granuloma giving chronic problems but the gauze it came out certainly look like enterocutaneous material. 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 [place], [place], [id number] CRP Collected: 04/28/2017 Status: F Source: [place] 10:40 AM [facility] [place] TYPE CODE TESTS RESULT OUT OF RANGE REFERENCE UNITS LAB L501.6710 0.0-3.0 mg/L High 5.90 C-REACTIVE PROT Result Comment: C-Reactive Protein (CRP) provides useful information for the diagnosis, therapy and monitoring of inflammatory processes and associated diseases. For the evaluation of Relative Risk for Cardiovascular Disease, a High Sensitivity CRP (HSCRP) should be ordered. Performed By: #### L501.6710 #### [facility] [address] [place], [address] PROGRESS Observed: 04/26/2017 Status: COMPLETED Source: [place] 2:44 PM [facility] [place] REPOSITORY HNO ID: [id number] Author: Linda (Rn) JUVENCIO Knott Service: (none) Author Type: Registered Nurse Type: Progress Notes Filed: 04/26/2017 2:44 PM Note Text: ET/WOCN Nursing Consult Topic: ET/WOCN Consultation Note ET Outcome: Patient seen in outpatient clinic to see Dr. Rose and [facility] nursing. Patient with current stoma for 8 yrs. Reports irritant derm, its always been there....since I had my stoma. Recommended using larger aperture size for better fit. Ostomy supply order form given with ordering numbers. ET's Next Scheduled Visit: as needed Stoma Type: Loop ileostomy (functioning lumen points towards 5 o'clock; second lumen points towards 2 o'clock) Diameter: 1 1/8 rounded (irregular) Location: LUQ Protrusion: Protrudes slightly, buds more with convexity Mucosal condition and color: Red and moist Mucocutaneous junction Intact Peristomal Skin: Denuded Location of Skin Impairment: Thin rim circumferentially Peristomal contour: Rounded Supportive Tissue: Semisoft Character of output: Semi-liquid dark brown effluent Emptying frequency per day: 6x per day Current pouching system: skin prep; 1 precut, ConvaTe Esteem +One Piece Drainable Pouch (#[id number]), Juanita Barrier Ring Current wearing time: 2 days. Effluent seen on back of barrier ring and sitting on skin. Aperture too small and covering over second lumen Recommendations: Skin Care: Dust skin with stomahesive powder followed by skin prep Pouching System: Same system applied, however gave order numbers for 03/15 opening (#[id number]) Wear Time: 3-4 days is the goal Midline Abdominal Incision: Healed scar Comment: N/A Time Increment: 1 hour Linda Knott RN, BSN, CWCN, COCN, CCCN [facility] Nursing - Please place consult via EPIC. Thank you. (M-F: [phone]; Weekends AND Holidays: [phone]). PROGRESS Observed: 04/26/2017 Status: COMPLETED Source: [place] 1:35 PM [facility] REPOSITORY HNO ID: [id number] Author: Linda (Rn) JUVENCIO Knott Service: (none) Author Type: Registered Nurse Type: Progress Notes Filed: 04/26/2017 1:36 PM Note Text: [place] [address] OSTOMY SUPPLY ORDER FORM Patient: Ailyn Méndez Patient Address: [address] [place] [address] Gender: female Date of : 1960 Type of Stoma: Loop Ileostomy Diagnosis: Ulcerative Colitis K51.90 Item and Description Qty 30 Day Use One Piece Ostomy Pouch Item Type: 03/15 precut [facility] Esteem+One-Piece Drainable Pouch #[id number] 10/Box 1 Box Refills: 11 Attending Physician: Dr. Rose For immediate authorization, please contact the physician?s office. [facility] Nurse: Linda Knott CWOCCristin Note: SIGNATURE: Linda Knott RN PATIENT NAME: Ailyn Méndez DATE: April 26, 2017 TIME: 1:33 PM CONTACT #: [phone] HISTORY PHYSICAL Observed: 04/26/2017 Status: COMPLETED Source: [place] 12:05 PM [facility] REPOSITORY HNO ID: [id number] Author: Dean Rose Service: (none) Author Type: Physician Type: HANDP Filed: 04/26/2017 12:46 PM Note Text: New Patient Consult REASON FOR VISIT Ailyn Méndez is a 56 year old female who is scheduled for a consult at the request of Thai Denise for Fistula. My final recommendations will be communicated back to the requesting physician by the way of the shared medical record, fax, or via US Mail History of Present Illness: Fistula/ HX of UC She has a history of having had a colectomy and an ileostomy in the right lower quadrant for ulcerative colitis. She indicates that there was a problem with the initial ileostomy from a functional standpoint and it was relocated to the left lower quadrant from the original right lower quadrant site. The ostomy is working well. In the interim, she had a cholecystectomy that was performed for pancreatitis. Following that, the site of the original ostomy developed an abscess that was subsequently drained and it continues to drain. 6 months later. She has not noticed any obvious enteric content or gas. An injection study, of the site was performed, but there was no demonstration of communication with the intestine. I reviewed these studies and they are not very good quality. She has not had any studies of her gastrointestinal tract in the last 4 years. Patient is emptying her bag 6-7 times per day and changing her appliance every 7 days. Patient has some redness, irritation and bleeding at hte stoma site at this time. Patient will be seeing stoma today FUNCTIONAL STATUS: Do moderate work around the house such as vacuuming, sweeping floors, or carrying in groceries (3.50 METs) PAST MEDICAL HISTORY Diagnosis Date - Back pain - CAD (coronary artery disease) 08/18/2013 Dr. Cresencio Stone, [facility] - Chest pain at rest 08/21/2013 Dr. John, Pain Management - CHF (congestive heart failure) ([facility]) 08/21/2013 - Chronic abdominal wound infection - CKD (chronic kidney disease) stage 3, GFR 30-59 ml/min 08/21/2013 - CKD (chronic kidney disease), stage II 08/21/2013 - COPD (chronic obstructive pulmonary disease) ([facility]) 08/18/2013 Dr. Cherelle Lazo, pulmonary - Depression with anxiety 08/21/2013 - Fistula - History of Meniere's disease 1994 surgical treatment - HTN (hypertension) 08/18/2013 - Hyperlipidemia 08/18/2013 - Hypoxemia 12/18/2013 Dr. Cherelle Lazo, pulmonary - Migraine 08/21/2013 - Neck pain - ANKITA on CPAP 08/21/2013 - Pulmonary hypertension, moderate to severe 08/21/2013 - S/P total colectomy 08/18/2013 Ulcerative colitis, ileostomy. - Type II or unspecified type diabetes mellitus without mention of complication, uncontrolled 08/18/2013 - Ulcerative colitis (HCC) PAST SURGICAL HISTORY Procedure Laterality Date - CABG, ARTERY-VEIN, FOUR 2012 CABG, quadruple grafts - DELIVERY ONLY 1988 , low transverse - DEBRIDEMENT:CURRETATE, SKIN SUBCUTANEOUS 08/14/2014 chronic abdominal wound - DECOMPRESS FACIAL NERVE,TOTAL 1993 Facial nerve decomp, 1993, Right side - ILEOSTOMY 1982 - LEFT HEART CATH,PERCUTANEOUS 07/10/2013 Cardiac cath, L heart - LEFT HEART CATH,PERCUTANEOUS 09/04/2015 Cardiac cath, L heart - LOCAL REVISION OF ILESTOMY 2007 - STENT PLACEMENT,PERCUTAN,EACH 08/2012;09/2012; multiple - TOTAL ABDOM HYSTERECTOMY 1990 Hysterectomy, CIRO, bilateral SO FAMILY HISTORY Problem Relation Age of Onset - Cancer Father - Diabetes Mother - Stroke Mother - None Sister - Heart Failure Brother - pancreatitis [Other] [OTHER] Brother Social History Substance Use Topics - Smoking status: Former Smoker Packs/day: 0.50 Years: 20.00 Types: Cigarettes Quit date: 05/06/2012 - Smokeless tobacco: Never Used - Alcohol use No The patient has the following: Problem List Noted Noted By Resolved Resolved By BMI 32.0-32.9,adult 06/18/2016 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 Dia Dec 2015 Low back pain without sciatica 07/04/2015 Dmitry Baltazar No Overview Addendum 01/10/2016 5:16 PM by Rose Jordan) [facility] has controlled substance agreement with Dr. Dia, Dec 2015 Diabetes mellitus type 2, uncontrolled, without complications (HCC) 03/12/2015 Lissette Hild No Hypoxemia 12/18/2013 Dmitry Baltazar No Ileostomy in place ([facility]) 09/11/2013 Dmitry Baltazar No CHF (congestive heart failure) ([facility]) 08/21/2013 Dmitry Baltazar No Chest pain at rest 08/21/2013 Dmitry Baltazar No Overview Addendum 01/10/2016 5:16 PM by Rose Jordan) [facility] has controlled substance agreement with Dr. Dia Dec 2015 ANKITA on CPAP 08/21/2013 Dmitry Baltazar No Depression with anxiety 08/21/2013 Dmitry Baltazar No CKD (chronic kidney disease) stage 3, GFR 30-59 ml/min 08/21/2013 Dmitry Baltazar No Pulmonary hypertension, moderate to severe 08/21/2013 Dmitry Baltazar No Migraine 08/21/2013 Dmitry Baltazar No CAD (coronary artery disease) 08/18/2013 Dmitry Baltazar No Overview Signed 08/21/2013 7:26 AM by Dmitry Stone, [facility] S/P total colectomy 08/18/2013 Dmitry Baltazar No Overview Addendum 08/21/2013 1:19 AM by Dmitry Baltazar Ulcerative colitis, ileostomy. 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 For cholesterol. Disp: 90 tablet Rfl: 0 ursodiol (ACTIGALL) 300 mg capsule Take 1 capsule by mouth twice daily. Disp: 60 capsule Rfl: 1 fenofibrate (LOFIBRA) 200 mg capsule Take 1 capsule by mouth daily with breakfast. Disp: 30 capsule Rfl: 1 insulin aspart (NOVOLOG) 100 unit/mL soln Inject 20-40 Units subcutaneously three times daily with meals. Disp: 1 Vial Rfl: 0 ondansetron (ZOFRAN) 4 mg tablet Take 1 tablet by mouth every 8 hours as needed. Disp: 20 tablet Rfl: 0 insulin glargine (BASAGLAR KWIKPEN) 100 unit/mL (3 mL) inpn Inject 30 units in the morning and 40 units at night Indications: DIABETES MELLITUS Disp: Rfl: pantoprazole DR (PROTONIX) 40 mg tablet Take 1 tablet by mouth daily before breakfast. Take on empty stomach, 1/2 hr before meal. Disp: 30 tablet Rfl: 1 oxyCODONE-acetaminophen (PERCOCET) 5-325 mg tablet Take 1 tablet by mouth every 8 hours as needed for Pain. Disp: 21 tablet Rfl: 0 COMPOUNDED PRESCRIPTION Convatec - Ujanita Cohesive Ostomy Seals #[id number]: V45.89; V44.2 Disp: 20 Each Rfl: 11 COMPOUNDED PRESCRIPTION Convatec - Esteem 10 drainable ostomy pouch #[id number]: V45.89; V44.2 Disp: 20 bag Rfl: 11 DULoxetine (CYMBALTA) 60 mg capsule Take 1 capsule by mouth twice daily. Disp: 180 capsule Rfl: 3 COMPOUNDED PRESCRIPTION PEREZ AND NEPHEW Skin-Prep. V45.89, V44.2. Use as directed twice a week. Disp: 100 Each Rfl: 6 ALPRAZolam (XANAX) 0.5 mg tablet Take 0.5 tablets by mouth twice daily as needed. Disp: 30 tablet Rfl: 2 buPROPion (WELLBUTRIN) 75 mg tablet Take 1 tablet by mouth twice daily. Disp: 60 tablet Rfl: 6 insulin needles, DISPOSABLE, (BD INSULIN PEN NEEDLE UF) 31 gauge x 5/16 ndle Inject 4-6 times daily Disp: 200 Each Rfl: 11 TENS Units windy 1 Device as directed. Disp: 1 Device Rfl: 0 isosorbide dinitrate (ISORDIL, SORBITRATE) 30 mg tablet Take 1 tablet by mouth three times daily. Disp: Rfl: blood sugar diagnostic (FREESTYLE LITE STRIPS) test strip TEST BLOOD SUGAR(S)5-6 DAILY. DX: DIABETES. INSULIN: YES Disp: 150 Strip Rfl: 11 furosemide (LASIX) 20 mg tablet Take 1 tablet by mouth once daily. Disp: Rfl: 0 COMPOUNDED PRESCRIPTION SHARPS IRONER OR PRESSER. Dx: E11.65. On insulin. Disp: 1 Each Rfl: 0 COMPOUNDED PRESCRIPTION CONVATEC Allkare Adhesive remover. V45.89, V44.2. Use twice a week as directed. Disp: 100 Each Rfl: 6 magnesium oxide (MAG-OX) 400 mg tablet Take 1 tablet by mouth three times daily. Disp: Rfl: metoprolol tartrate, short acting, 50 mg tablet Take 1.5 tablets by mouth three times daily. Disp: Rfl: 0 aspirin (ASPIRIN CHILDRENS) 81 mg chewable tablet Take 81 mg by mouth once daily. Disp: Rfl: nitroglycerin sublingual (NITROSTAT) 0.4 mg SL tablet Dissolve 0.4 mg under the tongue every 5 minutes as needed. Disp: Rfl: clopidogrel (PLAVIX) 75 mg tablet Take 75 mg by mouth once daily. Disp: Rfl: No current facility-administered medications for this visit. CURRENT ALLERGIES ALLERGIES Allergen Reactions - Cinnamon Anaphylaxis Airborne and ingested reactions: throat AND lips swell, SOB - Dicyclomine Vomiting - Azulfidine [Sulfasa* Hives - Codeine Intolerance Stops ileostomy functioning-severe constipation - Flagyl [Metronidazo* Hives - Fluzone High-Dose 2* Shortness of Breath Difficulty breathing, chest pain - Glucophage [Metform* GI Upset - Influenza Virus Vac* Shortness of Breath, Other: See Comments Chest pain - Penicillins Hives - Sulfa (Sulfonamide * Hives - Victoza [Liraglutid* Other: See Comments Acute pancreatitis REVIEW OF SYSTEMS PAIN ASSESSMENT: General: No weight loss, malaise or fevers. Neuro: negitive Respiratory: COPD Cardiovascular: Positive for: Hypertension, CT, Open heart 2012 with 9 stents GI: UC : No history of UTI in past 6 weeks. No history of renal failure. Not currently on or requiring dialysis. No history of symptoms or problems. INBOUND CALL CENTER REPRESENTATIVE: Negative for abnormal vaginal bleeding, abnormal vaginal discharge. : N/A Endocrine: Diabetes Mellitus on insulin Hematology: Easy bruising / bleeding, Chronic anti-coagulation / platelet meds (Aspirin, Plavix) Oncology: No history of CA metastasis, chemo within 30 days, or radiotherapy within 90 days. Has not lost 10% of body wt in 6 months. No history of oncological symptoms or problems. Psych: Anxiety, Depression Musculoskeletal: Back pain Skin: Positive for lesions: on her legs, hands and arms Anemia: No PHYSICAL EXAMINATION There were no vitals taken for this visit. General Appearance: Well appearing, alert, in no acute distress, well-hydrated, well nourished. Skin: Skin color, texture, turgor normal, no suspicious rashes or lesions Head: Normocephalic, no masses, lesions, tenderness or abnormalities Oropharynx: Lips, mucosa, and tongue normal, teeth and gums normal, oropharynx normal Neck: Supple, no adenopathy; thyroid symmetric, normal size, no bruits Lungs: Not examined Heart: RRR without murmur, gallop, or rubs. No ectopy, Not examined Extremities: No deformities, edema, skin discoloration, clubbing or cyanosis. Good capillary refill. Neuro: Deferred Abdomen: Shows a long midline incision with a draining site in the right lower quadrant at the site of an old ostomy and a left lower quadrant ileostomy. Anorectal: She has had a proctectomy. Electrical Fitter present: Yes Diagnostic tests reviewed for today's visit: Fistulogram, which does not show a fistula. Assessment ASSESSMENT It appears she has a draining area at the site of a previous ostomy, which commenced immediately following laparoscopic cholecystectomy and has persisted for several weeks. RECOMMENDATION I recommend that she have CT enterography and review before making any decisions on optimum treatment. Dean Rose MD FACS DATE: 04/26/17 TIME: 12:05 PM FLUOROSCOPY 1 HR OR Observed: 04/21/2017 Status: F Source: [facility] 9:15 AM [facility] [place] [facility] Imaging Services [address] [place] [address] Fluoroscopy 1 Hr or Less MR#: [id number] Acct: [id number] Name: AILYN MÉNDEZ Rep #: [id number] : 1960 F 56 From: Eric Spencer MD PCP: Shannan Mcgrath MD Status: REG CLI Study: Fluoroscopy 1 Hr or Less Date of Exam: 04/21/17 Exam# [id number] Ordering Dr: Thai Denise MD PROCEDURE: Fistulogram. DATE OF EXAMINATION: April 21, 2017. INDICATION: Female, 56 years old. Fistula in the right lower quadrant. 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 PROCEDURE/TECHNIQUE: (All elements of maximal sterile barrier technique followed, including US elements as applicable) Approximately 10 cc of Isovue-300 was injected into the opening. This most likely is a tract in the subcutaneous tissue opening in the right lower quadrant. A linear collection of contrast is seen measuring 1.4 cm in longitudinal dimension by 0.2 cm in transverse dimension. This most likely is within the subcutaneous tissues. RAD/Fluoroscopy 1 Hr or Less IMPRESSION: Contrast is seen in a linear pattern in the right lower quadrant at the site of the Electronically Signed: Eric Spencer MD at 15:05 EST Tel [phone], Service support , CC: Thai Denise MD; Shannan Mcgrath MD Jboss Developer: Signed RF-FLUOROSCOPY 1 HR OR Observed: 04/21/2017 Status: F Source: [facility] 12:00 AM [facility] [place] REPOSITORY Images were obtained outside of [facility] [id number] SURGERY VISIT REPORT Observed: 04/20/2017 Status: F Source: [place] 9:07 AM [facility] [place] [facility] [address] [place] [address] OFFICE VISIT Date of Service: 04/16/17 MR#: [id number] Acct: [id number] Name: AILYN MÉNDEZ Rep #: [id number] : 1960 Provider: Thai Denise MD Age/Sex: 56/F [place] [facility] [place] Status: Signed Intake Intake Visit Reasons: Wound Care Allergies cinnamon [Cinnamon] Allergy (Verified 04/16/17 10:11) Anaphylaxis Influenza Virus Vaccines Allergy (Verified 04/16/17 10:11) Shortness of breath liraglutide [From Victoza] Allergy (Verified 04/16/17 10:11) Anaphylaxis metronidazole [From Flagyl] Allergy (Verified 04/16/17 10:11) Hives Metronidazole HCl [From Flagyl] Allergy (Verified 04/16/17 10:11) Hives Penicillins Allergy (Verified 04/16/17 10:11) Hives Sulfa (Sulfonamide Antibiotics) Allergy (Verified 04/16/17 10:11) Hives codeine Adverse Reaction (Verified 04/16/17 10:11) Stops Ileostomy dicyclomine HCl [From Bentyl] Adverse Reaction (Verified 04/16/17 10:11) Nausea metformin HCl [From Glucophage] Adverse Reaction (Verified 04/16/17 10:11) Nausea Xmepsrj-Hhf-Cew Reductase Inhibitor Adverse Reaction (Verified 04/16/17 10:11) Nausea/joints ache Medications ALPRAZolam [Xanax] 0.5 mg PO QHS 01/21/15 [History Confirmed 04/16/17] Aspirin [Aspirin, Baby] 81 mg PO DAILY@0800 01/21/15 [History Confirmed 04/16/17] Atorvastatin Calcium [Lipitor] 80 mg PO QHS 01/21/15 [History Confirmed 04/16/17] Clopidogrel Bisulfate [Plavix] 75 mg PO DAILY 01/21/15 [History Confirmed 04/16/17] Duloxetine Hcl [Cymbalta] 60 mg PO BID 01/21/15 [History Confirmed 04/16/17] Magnesium Oxide [Mag-Ox 400] 400 mg PO BID 01/21/15 [History Confirmed 04/16/17] Metoprolol Tartrate [Lopressor (beta esha)] 75 mg PO TID 01/21/15 [History Confirmed 04/16/17] Bupropion HCl [Wellbutrin Xl] 100 mg PO TID 03/28/16 [History Confirmed 04/16/17] Nitroglycerin [Nitrostat] 0.4 mg SL Q5M PRN 07/12/16 [History Confirmed 04/16/17] Isosorbide DN [Isordil] 30 mg PO TID 09/03/16 [History Confirmed 04/16/17] Pregabalin [Lyrica] 100 mg PO BID 09/03/16 [History Confirmed 04/16/17] Ondansetron HCl [Zofran] 4 mg PO Q8H PRN PRN #20 tab 09/05/16 [Rx Confirmed 04/16/17] Baclofen 10 mg PO QHS 11/24/16 [History Confirmed 04/16/17] Calcium Carbonate [Calcium] 600 mg PO BID 11/24/16 [History Confirmed 04/16/17] Cholecalciferol (Vitamin D3) [Vitamin D3] 2,000 unit PO DAILY 11/24/16 [History Confirmed 04/16/17] TraMADol [Ultram (G)] 50 mg PO QHS 11/24/16 [History Confirmed 04/16/17] loperamide 2 mg tablet 2 mg PO .qid PRN tab 02/12/17 [History Confirmed 04/16/17] omeprazole 20 mg capsule,delayed release 20 mg PO QDAY 02/12/17 [History Confirmed 04/16/17] triamcinolone acetonide 0.1 % topical cream 1 applic TOPICAL BID 02/12/17 [History Confirmed 04/16/17] albuterol sulfate HFA 90 mcg/actuation aerosol inhaler 1 puff INHALATION Q6H PRN #1 inh 03/10/17 [Rx Confirmed 04/16/17] dextromethorphan-guaifenesin ER 60 mg-1,200 mg tab,extend release,12hr 1 tab PO Q12H #14 tab 03/10/17 [Rx Confirmed 04/16/17] prednisone 20 mg tablet 40 mg PO QDAY #10 tab 03/10/17 [Rx Confirmed 04/16/17] blood sugar diagnostic strips See Dose Instructions .ROUTE .MEDSUPPLY #20 ea 03/23/17 [History Confirmed 04/16/17] insulin aspart U-100 100 unit/mL subcutaneous pen See Label Instructions SC TID ml 03/23/17 [History Confirmed 04/16/17] insulin glargine (U-100) 100 unit/mL (3 mL) subcutaneous pen 43 unit SC QDAY ml 03/23/17 [History Confirmed 04/16/17] miconazole nitrate 2 % topical powder 1 applic TOPICAL QDAY 03/23/17 [History Confirmed 04/16/17] [facility] Medical History CAD (coronary artery disease) (Chronic) Hyperlipidemia (Chronic) Benign essential HTN (Chronic) DM2 (diabetes mellitus, type 2) (Chronic) Hx of coronary artery disease (Chronic) History of coronary artery stent placement (Chronic 2013) Chronic renal insufficiency (Acute) Menieres disease (Acute) Sleep apnea (Acute) Syncope (Acute) Ulcerative colitis (Acute) Vertigo (Acute) Surgical History S/P CABG (coronary artery bypass graft) (Chronic 2012) H/O colectomy (Acute) H/O total hysterectomy (Acute) gallbdder removal (Acute) ileostomy (Acute) left thumb surgery (Acute) lysis of adhesion (Acute) vestibular nerve surgery for Meniere's (Acute) Family History Mother CVA (cerebral vascular accident) Diabetes Brother Heart disease of CAD at 65 Myocardial infarction Pancreatitis Father Cancer lymphomia Lymphoma Grandmother Myocardial infarction of CT in her 70s Sister COPD (chronic obstructive pulmonary disease) Social History Smoking Status: Former smoker alcohol intake: never substance use type: does not use caffeine: Yes Type: coffee eating out: 1-3 times/week what type of physical activity do you participate in: none seatbelt use: always do you feel safe at home: Yes HPI HPI HPI: AILYN MÉNDEZ, is a 56 F who presents to the office today for chronic wound in the right lower quadrant. I see the patient in the past for this she has been going to the wound center and has a 4 cm tract from her right lower quadrant incision down to the fascia. It is packed every day yellow foul-smelling fluid and solid material comes out of it. It is behaving as a enterocutaneous fistula. Exam GI Other: Previous incision of the right lower quadrant has a centimeter opening that tracks down approximately 4 cm. The packing that was taken out looks like purulent material and is very suspicious for an enterocutaneous fistula. There is no abdominal tenderness there is no signs of cellulitis. Assessment AND Plan Problems 1. 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 I am going to hold off on getting any CAT scans on her at this time I believe the fistulogram will give us more useful information. This still could be just a abscess suture granuloma giving chronic problems but the gauze it came out certainly look like enterocutaneous material. 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 04/20/17 0907 <Electronically signed by Thai Denise MD> Date Thai Denise MD Cosigner Signature: Date (if applicable) CC: Shannan Mcgrath MD ABDOMEN/PELVIS WITHOUT Observed: 04/19/2017 Status: F Source: [place] CONT 2:59 PM [facility] [place] [facility] Imaging Services [address] [place] [id number] Abdomen/Pelvis without Cont MR#: [id number] Acct: [id number] Name: AILYN MÉNDEZ Rep #: [id number] : 1960 F 56 From: Tiffany Lopez MD PCP: Shannan Mcgrath MD Status: REG CLI Study: Abdomen/Pelvis without Cont Date of Exam: 04/19/17 Exam# [id number] Ordering Dr: Shannan Mcgrath MD STUDY: CT ABDOMEN AND PELVIS WITHOUT CONTRAST REASON FOR EXAM: Female, 56 years old. Open wound right lower abdomen RADIATION DOSAGE (If Supplied By Facility): CTDIvol = ( 14.30 ) mGy, DLP = ( 737.38 ) mGycm TECHNIQUE: Transaxial images were obtained from the lower chest to the upper thighs without oral contrast, and without intravenous contrast. Sagittal and coronal images were reconstructed. Individualized dose optimization techniques were used for this CT. COMPARISON: July 12, 2016 FINDINGS: There is stable minimal scarring in the posterior segment of the right lower lobe. There is no pleural effusion. The heart is normal in size. The liver is unremarkable. There is non-visualization of the gallbladder, which may be secondary to either contraction or a prior cholecystectomy. The spleen is unremarkable. The pancreas is unremarkable. The adrenal glands are unremarkable. The right kidney is unremarkable. There is no dilatation of the collecting system in the right kidney. The left kidney is unremarkable. There is no dilatation of the collecting system in the left kidney. The stomach is unremarkable. There is an ileostomy again seen in the left lower quadrant. The colon is surgically absent. There are moderate scattered vascular calcifications. The IVC is unremarkable. The retroperitoneum is unremarkable. There is no free fluid in the abdomen. The urinary bladder is unremarkable. There is absence of the uterus consistent with a prior hysterectomy. There are no abnormal masses in the adnexal regions. There is a tract of minimal fluid and air in the right lower quadrant. There are mild degenerative changes in the visualized spine. There are moderate degenerative disc changes at L5-S1. Sternotomy wires are present. CT/Abdomen/Pelvis without Cont IMPRESSION: There is a tract of minimal fluid and air in the right lower quadrant in the location of the prior ostomy scar. There may be communication with bowel, however no oral contrast was given. This will be assessed during fistulogram on April 21. An ileostomy is again seen in the left lower quadrant. There are no acute bowel abnormalities. There is no ascites, free air or significant lymphadenopathy. Electronically Signed: Tiffany Lopez MD at 20:03 EST Tel Direct: [phone], Service support , CC: Shannan Mcgrath MD Jboss Developer: Signed CT-ABDOMEN/PELVIS WITHOUT Observed: 04/19/2017 Status: F Source: [place] CONT IMPORT 12:00 AM [facility] RE[facility]ORY Images were obtained outside of [facility] [id number] ENDOCRINOLOGY VISIT Observed: 04/11/2017 Status: F Source: [place] REPORT 1:14 PM [facility] [place] [facility] [address] [place] [address] OFFICE VISIT Date of Service: 04/06/17 MR#: [id number] Acct: [id number] Name: AILYN MÉNDEZ Rep #: [id number] : 1960 Provider: Jane Saez NP Age/Sex: 56/F [place] [facility] [place]: Signed HPI History of present illness Ailyn Méndez is a 56 year old female who presents for follow up of diabetes type 2. Diagnosed in 1989 according to pt. She is currently following with [facility] dietary for the why weight program. She reports she is now eating 6 small meals daily and is not sure when to take insulin and how much. She feels better on small meals due to gastroparesis. Reports she has open wound RUQ which was an old surgical scar that opened. Being seen by the wound center. She is concerned about it. Is doing dressing changes at home as well. At time of visit: -Pt denies symptoms of hypertensive emergency (CP,SOB,WOLF, or blurred vision) and hypotension(dizziness or lightheadedness) -Pt denies symptoms of hypoglycemia ( sweaty, confusion, anxiety, tremor, hunger, palpitations) and hyperglycemia ( polydipsia, polyuria) -Pt denies potential medication adverse effect. Hypoglycemia Aware of hypoglycemia: When awake Able to self treat low BG: Yes Frequent low Blood sugar: No Has supply of glucagon: No Currently continues on basaglar 43 units daily and sliding scale insulin which was given to her during a hospital stay. Checking BG at breakfast, lunch and dinner. Consumin 30 grams of carb 6 times daily. She has been using her scale of 150-199=27, 200-259=32, 260-324=42, 325-324=37. Most recent BG readings for the last week have been 102-166 with one BG higher. This is with taking her insulin 3 times daily if needed. Pt denies difficulty with injections or self monitoring of BG. Denies any signs of infection or irritation at site of injections. Reports taking insulin as directed Cardiopulmonary symptoms: Denies chest pain at rest, dyspnea on exertion, lightheadedness or myalgias GI symptoms: Denies constipation, diarrhea, nausea/dyspepsia or vomiting Other symptoms: Denies blurry vision or change in vision Self monitoring: Yes Dietary compliance: Diabetes: good Diabetes education in past year: Yes Glucose testing: demonstrates correct use of meter Exam Const General: comfortable, no acute distress Orientation: oriented x3 HENMT Head: normal to inspection, atraumatic Ears: hearing grossly normal bilaterally Eyes General: appearance normal, both eyes and all related structures Conjunctivae: conjunctivae normal Sclera: sclerae normal Pupils: PERRL Resp Effort AND Inspection: able to speak in complete sentences, normal respiratory effort, symmetric chest movement Auscultation: Bilateral: Clear to Auscultation Cardio Rate: regular rate Rhythm: regular rhythm Heart Sounds: S1 normal, S2 normal GI Inspection: other (Wound RUQ covered with dressing) Palpation: guarding Skin Rashes: no rashes Wounds: wounds noted Diabetic Foot Pulses: L dorsalis pedis pulse: normal, R dorsalis pedis pulse: normal Neuro General: gait normal Speech: speech normal Extrem General: normal to inspection Psych Appearance: well kempt Mood: congruent mood Affect: normal affect Speech and Movement: speech and movement normal Judgment: judgment good Intake Vital Signs04/06/17 Height 5 ft 7 in 04/06/17 Weight: 198 lb 4 oz 04/06/17 Body Mass Index (BMI) 31.0 04/06/17 Blood Pressure 143/81 04/06/17 Blood Pressure Location Lt popliteal 04/06/17 Blood Pressure Position Sitting Intake Visit Reasons: 3 M FU 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: No Accompanied by: Self Is patient in pain?: No Allergies cinnamon [Cinnamon] Allergy (Verified 04/06/17 11:04) Anaphylaxis Influenza Virus Vaccines Allergy (Verified 04/06/17 11:04) Shortness of breath liraglutide [From Victoza] Allergy (Verified 04/06/17 11:04) Anaphylaxis metronidazole [From Flagyl] Allergy (Verified 04/06/17 11:04) Hives Metronidazole HCl [From Flagyl] Allergy (Verified 04/06/17 11:04) Hives Penicillins Allergy (Verified 04/06/17 11:04) Hives Sulfa (Sulfonamide Antibiotics) Allergy (Verified 04/06/17 11:04) Hives codeine Adverse Reaction (Verified 04/06/17 11:04) Stops Ileostomy dicyclomine HCl [From Bentyl] Adverse Reaction (Verified 04/06/17 11:04) Nausea metformin HCl [From Glucophage] Adverse Reaction (Verified 04/06/17 11:04) Nausea Euxbpur-Ybn-Knp Reductase Inhibitor Adverse Reaction (Verified 04/06/17 11:04) Nausea/joints ache Medications ALPRAZolam [Xanax] 0.5 mg PO QHS 01/21/15 [History Confirmed 04/06/17] Aspirin [Aspirin, Baby] 81 mg PO DAILY@0800 01/21/15 [History Confirmed 04/06/17] Atorvastatin Calcium [Lipitor] 80 mg PO QHS 01/21/15 [History Confirmed 04/06/17] Clopidogrel Bisulfate [Plavix] 75 mg PO DAILY 01/21/15 [History Confirmed 04/06/17] Duloxetine Hcl [Cymbalta] 60 mg PO BID 01/21/15 [History Confirmed 04/06/17] Magnesium Oxide [Mag-Ox 400] 400 mg PO BID 01/21/15 [History Confirmed 04/06/17] Metoprolol Tartrate [Lopressor (beta esha)] 75 mg PO TID 01/21/15 [History Confirmed 04/06/17] Bupropion HCl [Wellbutrin Xl] 100 mg PO TID 03/28/16 [History Confirmed 04/06/17] Nitroglycerin [Nitrostat] 0.4 mg SL Q5M PRN 07/12/16 [History Confirmed 04/06/17] Isosorbide DN [Isordil] 30 mg PO TID 09/03/16 [History Confirmed 04/06/17] Pregabalin [Lyrica] 100 mg PO BID 09/03/16 [History Confirmed 04/06/17] Ondansetron HCl [Zofran] 4 mg PO Q8H PRN PRN #20 tab 09/05/16 [Rx Confirmed 04/06/17] Baclofen 10 mg PO QHS 11/24/16 [History Confirmed 04/06/17] Calcium Carbonate [Calcium] 600 mg PO BID 11/24/16 [History Confirmed 04/06/17] Cholecalciferol (Vitamin D3) [Vitamin D3] 2,000 unit PO DAILY 11/24/16 [History Confirmed 04/06/17] TraMADol [Ultram (G)] 50 mg PO QHS 11/24/16 [History Confirmed 04/06/17] loperamide 2 mg tablet 2 mg PO .qid PRN tab 02/12/17 [History Confirmed 04/06/17] omeprazole 20 mg capsule,delayed release 20 mg PO QDAY 02/12/17 [History Confirmed 04/06/17] triamcinolone acetonide 0.1 % topical cream 1 applic TOPICAL BID 02/12/17 [History Confirmed 04/06/17] albuterol sulfate HFA 90 mcg/actuation aerosol inhaler 1 puff INHALATION Q6H PRN #1 inh 03/10/17 [Rx Confirmed 04/06/17] dextromethorphan-guaifenesin ER 60 mg-1,200 mg tab,extend release,12hr 1 tab PO Q12H #14 tab 03/10/17 [Rx Confirmed 04/06/17] prednisone 20 mg tablet 40 mg PO QDAY #10 tab 03/10/17 [Rx Confirmed 04/06/17] blood sugar diagnostic strips See Dose Instructions .ROUTE .MEDSUPPLY #20 ea 03/23/17 [History Confirmed 04/06/17] insulin aspart 100 unit/mL subcutaneous pen See Label Instructions SC TID ml 03/23/17 [History Confirmed 04/06/17] insulin glargine 100 unit/mL (3 mL) subcutaneous pen 43 unit SC QDAY ml 03/23/17 [History Confirmed 04/06/17] miconazole nitrate 2 % topical powder 1 applic TOPICAL QDAY 03/23/17 [History Confirmed 04/06/17] Is last menstrual period known: No Post menopausal: Yes Patient : No Nurse's Note: DIABETES TYPE 2 DX : EARLY LAST EXACERBATION : DKA : NEVER HYPOGLYCEMIC EPISODE : NEVER ER VISIT : NEVER BLOOD SUGARS : LOW : 102 HIGH : 345 PFSH Medical History CAD (coronary artery disease) (Chronic) Hyperlipidemia (Chronic) Benign essential HTN (Chronic) DM2 (diabetes mellitus, type 2) (Chronic) Hx of coronary artery disease (Chronic) History of coronary artery stent placement (Chronic 2012) Chronic renal insufficiency (Acute) Menieres disease (Acute) Sleep apnea (Acute) Syncope (Acute) Ulcerative colitis (Acute) Vertigo (Acute) Surgical History S/P CABG (coronary artery bypass graft) (Chronic 2012) H/O colectomy (Acute) H/O total hysterectomy (Acute) gallbdder removal (Acute) ileostomy (Acute) left thumb surgery (Acute) lysis of adhesion (Acute) vestibular nerve surgery for Meniere's (Acute) Family History Mother CVA (cerebral vascular accident) Diabetes Brother Heart disease of CAD at 65 Myocardial infarction Pancreatitis Father Cancer lymphomia Lymphoma Grandmother Myocardial infarction of CT in her 70s Sister COPD (chronic obstructive pulmonary disease) Social History Smoking Status: Former smoker alcohol intake: never substance use type: does not use caffeine: Yes Type: coffee eating out: 1-3 times/week what type of physical activity do you participate in: none seatbelt use: always do you feel safe at home: Yes ROS Const Constitutional: Positive for excessive sweating, fatigue and night sweats; no anorexia, body ache, chills, fever(s), frequent falls, decreased energy, malaise, weakness, weight change, sleep problems, abnormal sleep pattern, change in appetite, other or headache(s) Eyes Eyes: No blurry vision, change in vision, double vision, discharge, dry eyes, bulging eyes, floaters, visual disturbances, eye pain, light sensitivity, spots in vision, tunnel vision or other ENT ENT: No abnormal hearing, ear pain, ear discharge, ear pressure, hearing loss, tinnitus, dizziness/vertigo, balance problems, nosebleed/epistaxis, nasal congestion, nasal obstruction, nose pain, sinus pressure, sinus pain, nasal discharge, post nasal drip, headache(s), facial pain, dental pain, dry mouth, bad breath, hoarseness, lip swelling, mouth lesions, mouth pain, sore throat, tongue swelling, throat swelling, other, difficulty swallowing or neck pain Cardio Cardiology: Positive for excessive sweating; no chest pain at rest, chest pain with exertion, leg pain with exertion, shortness of breath, dyspnea on exertion, generalized swelling, irregular heart rhythm, lightheadedness, orthopnea, radiating jaw, neck or arm pain, fast heart rate, slow heart rate, palpitations or other Gastro GI: Positive for abdominal pain and cramping; no belching, bloating, change in bowel habits, change in stool character, coffee ground emesis, constipation, diarrhea, heartburn, difficulty swallowing, feeling full early, excessive flatus, incontinent of stools, Vomiting blood/hematemesis, blood in stool, loose stools, Black,tarry stools, nausea/dyspepsia, pain with swallowing, vomiting or other Genitourinary-Female: No difficulty urinating, burning urination, painful urination, urinary incontinence, urinary frequency, urinary urgency, urinary hesitancy, urinary retention, blood in urine, Frequent nighttime urination/ nocturia, post void dribbling, suprapubic fullness, side pain, sexual problems, genital lesions, genital itching, hot flashes, abnormal periods, abnormal vaginal bleeding, absent period, painful periods, light periods, heavy periods, difficulty getting , painful intercourse, pelvic pain, vaginal dryness, vaginal odor, Vaginal Itching or other Musc Musculoskeletal: No abnormal walking, joint pain, back pain, deformity, joint swelling, limited range of motion, loss of height, muscle cramps, muscle weakness, decreased muscle mass, body aches, neck pain, numbness, radiating pain into limb, stiffness, tingling or other Skin Skin: Positive for wounds (unhealing abdominal wound); no acne, hair loss, change in hair, nail changes, boil, change in skin color, dry skin, redness, excessive hair growth, yellowing of the skin, lesions, itching, rash, skin pain, skin ulcer, sores, skin swelling or other Breast Breast: No other Neuro Neurology: No frequent falls, weakness, visual disturbances, abnormal hearing, headache(s), abnormal walking, numbness or tingling Psych Psychiatric: No abnormal sleep pattern, No change in appetite Endo Endocrine: Positive for excessive sweating and fatigue; no other Aller/Imm Allergy/Immunologic: No lip swelling, tongue swelling, throat swelling or itchy eyes Assessment AND Plan Problems 1. Type 2 diabetes mellitus with stage 3 chronic kidney disease, with long-term current use of insulin E11.9 2. Benign essential HTN I10 Plan BP varies. Enc to monitor her diet and activity. Follow [facility] plan set up for her. Is taking medication as directed. Orders Orders: Plan Detail Additional Comments 1. Please schedule follow up in 3 months. 2. Lab work one week before appointment. 3. Discussed importance of regular exercise and recommend starting or continuing a regular exercise program for good health. 4. The patient was encouraged to lose weight for good health 5. The importance of monitoring blood sugar regularly was reviewed. 6. The importance of monitoring the HBA1c level regularly was reviewed. 7. The importance of prper foot care and regularly checking feet to prevent sores and loss of limbs was reviewed. 8. The importance of keeping BP at or below 130/80 to prevent stroke, heart attacks, kidney failure, blindness was reviewed. Spent approximately 30 minutes with patient with over 50% of time spent in discussion and counseling regarding medication adjustment, symptoms and treatment of hypoglycemia, diet adherence, and checking BG before driving. Coding Level of Care Code Off vis,est,level 3 Diagnoses Type 2 diabetes mellitus with stage 3 chronic kidney disease, with long-term current use of insulin E11.9 Benign essential HTN I10 Time Spent (min) 30 04/11/17 1314 <Electronically signed by Jane LEOS> Date Jane LEOS Cosigner Signature: Date (if applicable) CC: PROGRESS Observed: 04/09/2017 Status: COMPLETED Source: [place] 9:14 AM [facility] REPOSITORY O ID: [id number] Author: Willian Vaz Service: (none) Author Type: Physician Type: Progress Notes Filed: 04/09/2017 9:26 AM Note Text: Subjective: Patient presents to clinic c/o painful toenails. They state that the nails are especially painful with shoe gear and pressure. Patient states that nails b/l 2nd toneail are painful. She states her feet are very tender. She states the pain is more burning and feels like tingling. Patient admits to being diabetic and states that their blood sugar was 170 mg/dL this AM. No other pedal complaints at this time. Patient states no change in medications or medical history since last visit. Objective: Patient presents to clinic ambulating in diabetic shoes. Vasc: DP and PT pulses are palpable bilateral. CFT is less than 5 seconds bilateral. Skin temperature is warm to cool proximal to distal bilateral. There is no edema or varicosities noted. Neuro: Protective sensation is intact to the foot and toes when tested with the 5.07 SWM bilateral. Vibratory sensation is decreased at the hallux IPJ bilateral. The hallux is downgoing bilateral. Derm: Nails 1-5 b/l are painful, discolored-yellow, thick, crumbly, dystrophic and with subungal debris. Skin is dry and scaly b/l bilateral. There are hyperkeratosis to b/l hallux and right 1st metatarsal, no ulcerations, scars, verruca or other lesions noted. Ortho: Muscle strength is 5/5 for all pedal groups tested. Ankle joint DF is full with the knee extended with no pain or crepitus noted. 1st MPJ ROM is full bilateral. Mild bunion is noted to b/l feet Assessment: (E11.42) Diabetic polyneuropathy associated with type 2 diabetes mellitus (HCC) (primary encounter diagnosis) (L85.9) Hyperkeratosis 20.11) Acquired hallux valgus of right foot (B35.1) Onychomycosis (M79.675) Pain in toe of left foot (M79.674) Pain in toe of right foot Plan: Patient was seen and evaluated. Nails 1-5 bilateral were debrided in length and thickness. Callus debrided to b/l hallux and right 1st metatarsal with sanding disk. She is to continue with lotion daily. If these return, she should call office to have them filed earlier. Continue with diabetic shoes. Discussed tingling of her feet. Suspect neuropathy. Patient was instructed on the continued importance of diabetic foot care along with proper diet and keeping their blood sugar under control to prevent complications. Patient is to RTC in 3-4 months. Willian Vaz DPM PROGRESS Observed: 04/09/2017 Status: COMPLETED Source: [place] 9:09 AM [facility] [place] REPOSITORY O ID: [id number] Author: Reshma French RN Service: (none) Author Type: (none) Type: Progress Notes Filed: 04/09/2017 9:26 AM Note Text: Pt reports that her blood sugar was 170 this morning. Observed: 03/31/2017 Status: F Source: [place] CULTURE, DEEP WOUND 9:10 AM [facility] [place] Comments: RLQ ULCER Gram Stain Gram Stain No organisms seen Rare Red Blood Cells Wound Culture ORGANISM 1: Staphylococcus epidermidis Amount Growth Very Rare Staphylococcus epidermidis: REACTION Benzylpenicillin NF 0.25 R Cefoxitin *NF - Clindamycin $$ 4 R Inducable Clindamycin Res[place] - Erythromycin $ <=0.25 S Gentamicin $ <=0.5 S Levofloxacin $ 4 I Linezolid $$$$ 1 S Oxacillin NF <=0.25 S Tigecycline $$$$ 0.25 S Rifampin $$ <=0.5 S Tetracycline NF 2 S Vancomycin $ 1 S (NF) indicates non-formulary drug at [facility]. Approval by Infectious Disease Specialist required before non-formulary drugs may be ordered and/or dispensed. * CLSI guidelines does not recommend testing of cephalosporins. This interpretation is deduced from Beta-lactam/penicillin results. Cult, Anaerobic Studies have confirmed that Anaerobic Gram Positive Cocci are routinely susceptible to: Penicillin/Ampicillin, Ampicillin/Sulbactam, Piperacillin/Tazobactam, Cefoxatin, Ertapenem, Imipenem, Meropenem and Metronidazole and vary in resistance to: Clindamycin and Moxifloxacin. ORGANISM 1: Anaerobic cocci Performed By: #### M100.1500 #### [facility] [address] [place], [place], [address] ORTHOPEDIC VISIT Observed: 03/21/2017 Status: F Source: [place] REPORT 11:14 PM [facility] [place] [facility] [address] [place] [address] OFFICE VISIT Date of Service: 02/16/17 MR#: [id number] Acct: [id number] Name: CRISTY MÉNDEZVJ Hinton Rep #: [id number] : 1960 Provider: Radha Cline MD Age/Sex: 56/F [place] [facility] [place]: Signed Intake Intake Visit Reasons: Lumbar pain Is patient in pain?: Yes Allergies cinnamon [Cinnamon] Allergy (Verified 02/23/17 08:32) Anaphylaxis Influenza Virus Vaccines Allergy (Verified 02/23/17 08:37) Shortness of breath liraglutide [From Victoza] Allergy (Verified 02/23/17 08:32) Anaphylaxis metronidazole [From Flagyl] Allergy (Verified 02/23/17 08:32) Hives Metronidazole HCl [From Flagyl] Allergy (Verified 02/23/17 08:32) Hives Penicillins Allergy (Verified 02/23/17 08:32) Hives Sulfa (Sulfonamide Antibiotics) Allergy (Verified 02/23/17 08:32) Hives codeine Adverse Reaction (Verified 02/23/17 08:32) Stops Ileostomy dicyclomine HCl [From Bentyl] Adverse Reaction (Verified 02/23/17 08:32) Nausea metformin HCl [From Glucophage] Adverse Reaction (Verified 02/23/17 08:32) Nausea Xhwmgfn-Fru-Msi Reductase Inhibitor Adverse Reaction (Verified 02/23/17 08:32) Nausea/joints ache Medications ALPRAZolam [Xanax] 0.5 mg PO QHS 01/21/15 [History Confirmed 03/04/17] Aspirin [Aspirin, Baby] 81 mg PO DAILY@0800 01/21/15 [History Confirmed 03/04/17] Atorvastatin Calcium [Lipitor] 80 mg PO QHS 01/21/15 [History Confirmed 03/04/17] Clopidogrel Bisulfate [Plavix] 75 mg PO DAILY 01/21/15 [History Confirmed 03/04/17] Duloxetine Hcl [Cymbalta] 60 mg PO BID 01/21/15 [History Confirmed 03/04/17] Magnesium Oxide [Mag-Ox 400] 400 mg PO BID 01/21/15 [History Confirmed 03/04/17] Metoprolol Tartrate [Lopressor (beta esha)] 75 mg PO TID 01/21/15 [History Confirmed 03/04/17] Bupropion HCl [Wellbutrin Xl] 100 mg PO TID 03/28/16 [History Confirmed 03/04/17] Nitroglycerin [Nitrostat] 0.4 mg SL Q5M PRN 07/12/16 [History Confirmed 03/04/17] Insulin Aspart [Novolog Vial] 20 - 40 unit SQ TIDCM 09/03/16 [History Confirmed 03/04/17] Isosorbide DN [Isordil] 30 mg PO TID 09/03/16 [History Confirmed 03/04/17] Pregabalin [Lyrica] 100 mg PO BID 09/03/16 [History Confirmed 03/04/17] Ondansetron HCl [Zofran] 4 mg PO Q8H PRN PRN #20 tab 09/05/16 [Rx Confirmed 03/04/17] Baclofen 10 mg PO QHS 11/24/16 [History Confirmed 03/04/17] Calcium Carbonate [Calcium] 600 mg PO BID 11/24/16 [History Confirmed 03/04/17] Cholecalciferol (Vitamin D3) [Vitamin D3] 2,000 unit PO DAILY 11/24/16 [History Confirmed 03/04/17] Fenofibrate 200 mg PO DAILY 11/24/16 [History Confirmed 03/04/17] Insulin Glargine,Hum.rec.anlog [Basaglar Kwikpen U-100] 40 unit SQ DAILY 11/24/16 [History Confirmed 03/04/17] Insulin Glargine,Hum.rec.anlog [Basaglar Kwikpen U-100] 50 unit SQ QHS 11/24/16 [History Confirmed 03/04/17] TraMADol [Ultram (G)] 50 mg PO QHS 11/24/16 [History Confirmed 03/04/17] loperamide 2 mg tablet 2 mg PO .qid PRN tab 02/12/17 [History Confirmed 03/04/17] omeprazole 20 mg capsule,delayed release 20 mg PO QDAY 02/12/17 [History Confirmed 03/04/17] triamcinolone acetonide 0.1 % topical cream 1 applic TOPICAL BID 02/12/17 [History Confirmed 03/04/17] albuterol sulfate HFA 90 mcg/actuation aerosol inhaler 1 puff INHALATION Q6H PRN #1 inh 03/10/17 [Rx Confirmed 03/10/17] dextromethorphan-guaifenesin ER 60 mg-1,200 mg tab,extend release,12hr 1 tab PO Q12H #14 tab 03/10/17 [Rx Confirmed 03/10/17] prednisone 20 mg tablet 40 mg PO QDAY #10 tab 03/10/17 [Rx Confirmed 03/10/17] PFSH Medical History CAD (coronary artery disease) (Chronic) Hyperlipidemia (Chronic) Acute pancreatitis (Resolved) Diarrhea (Chronic) Anemia of chronic renal failure, stage 3 (moderate) (Chronic) Obstructive sleep apnea (Chronic) Gastroparesis (Suspected) Psoriasis (Chronic) Heart failure with preserved ejection fraction (Chronic) Benign essential HTN (Chronic) Depression (Chronic) DM2 (diabetes mellitus, type 2) (Chronic) FCHL (familial combined hyperlipidemia) (Chronic) Ulcerative colitis (Chronic) Hx of coronary artery disease (Chronic) Pulmonary hypertension (Chronic) History of coronary artery stent placement (Chronic 2012) Chronic respiratory failure (Chronic) COPD (chronic obstructive pulmonary disease) (Chronic) Chest pain (Resolved) Hypokalemia (Resolved) Abdominal pain (Inactive) Acute on chronic renal insufficiency (Inactive) Chest pain at rest (Inactive) Diarrhea (Inactive) Vasovagal episode (Inactive) Surgical History S/P CABG (coronary artery bypass graft) (Chronic 2012) H/O colectomy (Acute) H/O total hysterectomy (Acute) gallbdder removal (Acute) ileostomy (Acute) left thumb surgery (Acute) lysis of adhesion (Acute) vestibular nerve surgery for Meniere's (Acute) Family History Mother CVA (cerebral vascular accident) Diabetes Brother Heart disease of CAD at 65 Father Cancer lymphomia Grandmother Myocardial infarction of CT in her 70s Social History Smoking Status: Former smoker alcohol intake: never substance use type: does not use caffeine: Yes Type: coffee eating out: 1-3 times/week what type of physical activity do you participate in: none seatbelt use: always do you feel safe at home: Yes HPI Low back pain: Chief Complaint: lumbar pain Details: AILYN MÉNDEZ is a 56 year old LHD F here today for 90% low back pain and 10% right buttock and posterior thigh pain. She has left buttock pain. She states that she has had low back for pain a few years with her pain progressively worsening over the past 2-3 months. She denies any injuries. It is worse with walking and standing and lifting. It is improved with nothing. He denies bowel or bladder issues, difficulty with hand dexterity, gait instability. She has an ileostomy due to ulcerative colitis for the past 30 years. She has had physical therapy 2 years ago without relief. Patient has seen Dr John where she had 7-8 injections which were not helpful. She is on lyrica, tramadol, baclofen and cymbalta. She has had no cancer. She had diabetes with peripheral neuropathy, CAD on plavix, COPD and has had a CABG x 4 with 9 stents. She is on disability. She does not smoke. Ortho Exam Spine General: alert, oriented x3 Gait: antalgic, other (able to heel and toe stand) Sensory Exam: no sensory deficits noted DTR's: Rt Triceps: 2+, Lt Triceps: 2+, Rt Biceps: 2+, Lt Biceps: 2+, Rt Brachioradialis: 2+, Lt Brachioradialis: 2+, Rt Patellar: 2+, Lt Patellar: 2+, Rt Ankle: 2+, Lt Ankle: 2+ Plantar Reflexes: Downgoing: right, left, bilater Coordination: tandem gait normal, Romberg test normal SPINE TESTING CERVICAL THORACIC LUMBAR SLR: Negative, Right, Le Musculoskeletal Cervical Spine: cervical ROM normal Thoracic/Lumbar Spine: thoraco-lumbar ROM normal, straight leg raise negative bilaterally, lumbar spinal tenderness, other (no skin dysraphism, 2+ dp/pt pulses), thoraco-lumbar ROM limited (motion worse with lumbar extension greater than flexion) Strength 0=absent - 5=normal Deltoid R (C5): 5, Deltoid L (C5): 5, R Bicep (C5-6): 5, L Bicep (C5-6): 5, R Wrist Extensor (C6): 5, L Wrist Extensor (C6): 5, R Tricep (C7): 5, L Tricep (C7): 5, R Finger Flexors (C8): 5, L Finger Flexors (C8): 5, R First Dorsal Interossei (C8): 5, L First Dorsal Interossei (C8): 5, R Hip Flexor (L1-3): 5, L Hip Flexor (L1-3): 5, R Quadriceps (L2-4): 5, L Quadriceps (L2-4): 5, R Anterior Tibialis (L4-5): 5, L Anterior Tibialis (L4- 5): 5, R Hamstrings (L5-S1): 5, L Hamstrings (L5-S1): 5, GS (S1): 5, L GS (S1): 5, R Peroneals (S1): 5, L Peroneals (S1): 5 Assessment AND Plan 1. Chronic bilateral low back pain without sciatica M54.5; G89.29 Plan Imaging 1. XR lumbar spine - diffuse spondylosis 2. MRI lumbar spine CD 08/25/2016 diffuse spondylosis with capacious central canal 3. DEXA 09/2016 L spine T score -1.6, Land R hip -1.4 and 1.5 respectively I/R/P: 1. back pain 2. ulcerative colitis with ileostomy Ms. Méndez presents with a majority back pain that is facetogenic in nature. The natural history and course of the symptomatology of facetogenic back pain was discussed in detail with the patient. I answered all questions regarding the mode of onset, pathophysiology, symptoms, imaging findings, treatment options regarding her diagnosis. Recommend therapy and continued care with Dr. John. Follow up as needed. Plan of care discussed. All questions answered. She verbalized understanding of the disease process and agreed to the treatment plan formulated for this visit. Orders Orders: Plan Detail Other Medications Discontinued: levofloxacin (Levaquin) Discontinued Reason: B750 mg PO Q24H 7 days Background Daemon y Stop Date 03/21/17 3479 <Electronically signed by Radha Cline MD> Date Radha Cline MD Cosigner Signature: Date (if applicable) CC: BRAIN WITHOUT Observed: 03/17/2017 Status: F Source: [place] CONTRAST 6:11 PM [facility] [place] [facility] Imaging Services [address] [place] [address] Brain without Contrast MR#: [id number] Acct: [id number] Name: AILYN MÉNDEZ Rep #: [id number] : 1960 F 56 From: Katherin Hui MD PCP: Shannan Mcgrath MD Status: REG CLI Study: Brain without Contrast Date of Exam: 03/17/17 Exam# [id number] Ordering Dr: Kerline Villareal [employer]-C MR Brain W/O Contrast INDICATION: frequent falls, difficulty finding words, memory loss 6 months COMPARISON: None TECHNIQUE: Multiplanar multisequence MRI examination of the brain without contrast. FINDINGS: There is no evidence of restricted diffusion to suggest acute ischemia/infarction. Ventricular system is normal in size and symmetric. Cortical sulci, sylvian fissures, and basal cisterns are well seen. Rowland-white matter junction is normal. Midline structures and craniocervical junction are normal. The cerebellopontine angles are normal and symmetric. There are where a few bilateral high frontal subcortical punctate T-2/FLAIR signal hyperintensities appreciated. Supra-and infratentorial brain parenchyma demonstrates otherwise normal signal. There is no evidence of parenchymal microhemorrhage, mass effect or midline shift, or abnormal extra-axial collection. Flow-voids of the grindstone of Whalen vascularity are well seen. Diffuse mucosal thickening is noted in the ethmoid sinuses, in the right maxillary sinus, sphenoid sinus and the frontal sinus. MRI/Brain without Contrast IMPRESSION: Age-appropriate appearance of the parenchyma with very minimal early chronic ischemic microvascular white matter changes. No acute findings. Paranasal sinus disease. at 2335 Reported and signed by: Katherin Hui MD Electronically Signed: Katherin Hui MD at 22:33 EST Tel , Service support , CC: EL Villareal; Shannan Mcgrath MD Jboss Developer: Signed PT D/C SUMMARY (1) Observed: 03/15/2017 Status: F Source: [place] 3:20 PM [facility] [place] Physical Therapy [facility] [address] [place] [address] Fax REHABILITATION SERVICES DISCHARGE SUMMARY MR#: [id number] Acct: [id number] Name: AILYN MÉNDEZ Rep #: [id number] : 1960 56 From: Merced Horvath PT, Cert. MDT Referring Dr.: Radha Cline MD Status: REG RCR Insurance: [employer] SELF PAY INSURANCE HP - PT D/C Summary It has been my pleasure to treat AILYN MÉNDEZ under orders from Radha Cline, for the diagnosis of DDD for a total of 1 visit(s). Discharge Date: Please see the following information for a summary of their discharge status. - Goals Goal 1:: DECREASE C/O LBP Goal 2:: IMPROVE PERSONAL CARE, LIFTING, WALKING, SITTING, STANDING, SLEEPING, SOCIAL LIFE, TRAVELING AND HOMEMAKING FUNCTION Goal 3:: INSTRUCT IN PROPHYLAXIS - Plan Plan: AQUATIC THERAPY. POSTURE CORRECTION/STRENGTHENING, INSTRUCTION IN APPROPRIATE BODY MECHANICS AND ACTIVITY MODIFICATIONS. DLS STARTING WITH A NEUTRAL SPINE PROGRESSING ROM TOLERATED. MARCEL LE ROM, STRETCHING AND STRENGTHENING. HEP INSTRUCTION. CONSIDER TENS, MASSAGE AND OTHER MODALITIES NEEDED. - D/C Information If there are questions or concerns regarding this patient's physical therapy, please feel free to call me at [phone]. Thank you for the referral of this patient. Sincerely, Merced Horvath <Electronically signed by Merced Horvath PT, Cert. MDT> 03/15/17 1520 CC: Shannan Mcgrath MD; Radha Cline MD ADE Signed INTERNAL MEDICINE Observed: 03/10/2017 Status: F Source: [place] OFFICE VISIT 4:12 PM [facility] [place] [address] [place] [address] OFFICE VISIT Date of Service: 03/10/17 MR#: [id number] Acct: [id number] Name: AILYN MÉNDEZ Rep #: [id number] : 1960 Provider: Naima Strange NP Age/Sex: 56/F [place] [facility] [place]: Signed Intake Vital Signs03/10/17 Height 5 ft 7 in 03/10/17 Weight: 199 lb 03/10/17 Body Mass Index (BMI) 31.1 03/10/17 Blood Pressure 141/83 03/10/17 Blood Pressure Location Lt brachial Intake Visit Reasons: coughing Is patient in pain?: Yes (body aches/ headache) Pain scale (1-10): 9 Allergies cinnamon [Cinnamon] Allergy (Verified 02/23/17 08:32) Anaphylaxis Influenza Virus Vaccines Allergy (Verified 02/23/17 08:37) Shortness of breath liraglutide [From Victoza] Allergy (Verified 02/23/17 08:32) Anaphylaxis metronidazole [From Flagyl] Allergy (Verified 02/23/17 08:32) Hives Metronidazole HCl [From Flagyl] Allergy (Verified 02/23/17 08:32) Hives Penicillins Allergy (Verified 02/23/17 08:32) Hives Sulfa (Sulfonamide Antibiotics) Allergy (Verified 02/23/17 08:32) Hives codeine Adverse Reaction (Verified 02/23/17 08:32) Stops Ileostomy dicyclomine HCl [From Bentyl] Adverse Reaction (Verified 02/23/17 08:32) Nausea metformin HCl [From Glucophage] Adverse Reaction (Verified 02/23/17 08:32) Nausea Kldviqc-Gxj-Mcz Reductase Inhibitor Adverse Reaction (Verified 02/23/17 08:32) Nausea/joints ache Medications ALPRAZolam [Xanax] 0.5 mg PO QHS 01/21/15 [History Confirmed 03/04/17] Aspirin [Aspirin, Baby] 81 mg PO DAILY@0800 01/21/15 [History Confirmed 03/04/17] Atorvastatin Calcium [Lipitor] 80 mg PO QHS 01/21/15 [History Confirmed 03/04/17] Clopidogrel Bisulfate [Plavix] 75 mg PO DAILY 01/21/15 [History Confirmed 03/04/17] Duloxetine Hcl [Cymbalta] 60 mg PO BID 01/21/15 [History Confirmed 03/04/17] Magnesium Oxide [Mag-Ox 400] 400 mg PO BID 01/21/15 [History Confirmed 03/04/17] Metoprolol Tartrate [Lopressor (beta esha)] 75 mg PO TID 01/21/15 [History Confirmed 03/04/17] Bupropion HCl [Wellbutrin Xl] 100 mg PO TID 03/28/16 [History Confirmed 03/04/17] Nitroglycerin [Nitrostat] 0.4 mg SL Q5M PRN 07/12/16 [History Confirmed 03/04/17] Insulin Aspart [Novolog Vial] 20 - 40 unit SQ TIDCM 09/03/16 [History Confirmed 03/04/17] Isosorbide DN [Isordil] 30 mg PO TID 09/03/16 [History Confirmed 03/04/17] Pregabalin [Lyrica] 100 mg PO BID 09/03/16 [History Confirmed 03/04/17] Ondansetron HCl [Zofran] 4 mg PO Q8H PRN PRN #20 tab 09/05/16 [Rx Confirmed 03/04/17] Baclofen 10 mg PO QHS 11/24/16 [History Confirmed 03/04/17] Calcium Carbonate [Calcium] 600 mg PO BID 11/24/16 [History Confirmed 03/04/17] Cholecalciferol (Vitamin D3) [Vitamin D3] 2,000 unit PO DAILY 11/24/16 [History Confirmed 03/04/17] Fenofibrate 200 mg PO DAILY 11/24/16 [History Confirmed 03/04/17] Insulin Glargine,Hum.rec.anlog [Basaglar Kwikpen U-100] 40 unit SQ DAILY 11/24/16 [History Confirmed 03/04/17] Insulin Glargine,Hum.rec.anlog [Basaglar Kwikpen U-100] 50 unit SQ QHS 11/24/16 [History Confirmed 03/04/17] TraMADol [Ultram (G)] 50 mg PO QHS 11/24/16 [History Confirmed 03/04/17] loperamide 2 mg tablet 2 mg PO .qid PRN tab 02/12/17 [History Confirmed 03/04/17] omeprazole 20 mg capsule,delayed release 20 mg PO QDAY 02/12/17 [History Confirmed 03/04/17] triamcinolone acetonide 0.1 % topical cream 1 applic TOPICAL BID 02/12/17 [History Confirmed 03/04/17] albuterol sulfate HFA 90 mcg/actuation aerosol inhaler 1 puff INHALATION Q6H PRN #1 inh 03/10/17 [Rx Confirmed 03/10/17] dextromethorphan-guaifenesin ER 60 mg-1,200 mg tab,extend release,12hr 1 tab PO Q12H #14 tab 03/10/17 [Rx Confirmed 03/10/17] levofloxacin 750 mg tablet 750 mg PO Q24H 7 Days #7 tab 03/10/17 [Rx Confirmed 03/10/17] prednisone 20 mg tablet 40 mg PO QDAY #10 tab 03/10/17 [Rx Confirmed 03/10/17] PFSH Medical History Surgical wound dehiscence (Acute) CAD (coronary artery disease) (Chronic) Hyperlipidemia (Chronic) Acute pancreatitis (Resolved) Diarrhea (Chronic) Anemia of chronic renal failure, stage 3 (moderate) (Chronic) Obstructive sleep apnea (Chronic) Gastroparesis (Suspected) Psoriasis (Chronic) Heart failure with preserved ejection fraction (Chronic) Benign essential HTN (Chronic) Depression (Chronic) DM2 (diabetes mellitus, type 2) (Chronic) FCHL (familial combined hyperlipidemia) (Chronic) Ulcerative colitis (Chronic) Hx of coronary artery disease (Chronic) Pulmonary hypertension (Chronic) History of coronary artery stent placement (Chronic 2012) Chronic respiratory failure (Chronic) COPD (chronic obstructive pulmonary disease) (Chronic) Chest pain (Resolved) Hypokalemia (Resolved) Abdominal pain (Inactive) Acute on chronic renal insufficiency (Inactive) Chest pain at rest (Inactive) Diarrhea (Inactive) Vasovagal episode (Inactive) Surgical History S/P CABG (coronary artery bypass graft) (Chronic 2012) H/O colectomy (Acute) H/O total hysterectomy (Acute) gallbdder removal (Acute) ileostomy (Acute) left thumb surgery (Acute) lysis of adhesion (Acute) vestibular nerve surgery for Meniere's (Acute) Family History Mother CVA (cerebral vascular accident) Diabetes Brother Heart disease of CAD at 65 Father Cancer lymphomia Grandmother Myocardial infarction of CT in her 70s Social History Smoking Status: Former smoker alcohol intake: never substance use type: does not use caffeine: Yes Type: coffee eating out: 1-3 times/week what type of physical activity do you participate in: none seatbelt use: always do you feel safe at home: Yes HPI coughing: Chief Complaint: cough Details: AILYN MÉNDEZ, is a 56 F who presents to the office today for an acute visit of productive cough of green-yellow sputum and increasing shortness of breath. Her PMH includes; recurrent pancreatitis, s/p recent cholecystectomy, diabetes mellitus type 2, gastroparesis, COPD, CKD stage 3, HTN, COPD, depression, coronary artery disease, obstructive sleep apnea, and ulcerative colitis status post 2 ileostomies. Patient states that her symptoms of productive intermittent cough of green-yellow sputum, increasing shortness of breath, pain on inspiration, headache, chills, and sweats began approximately 6 days ago and have been progressively worsening. She does note that she has a history of pneumonia. She notes her wheezing is severe and she feels trouble catching her breath, she does note that she is out of her albuterol inhaler. Although she does have COPD, she states that she is on no maintenance therapy. She denies any recent antibiotic use, hospitalizations, or steroid burst. She states that she has been exposed to sick contacts and recently visited her friend who was admitted to the hospital for an acute illness. She denies any fever. She has not tried any ldvt-nkx-ytuefko supportive modalities. She denies any other aggravating or alleviating factors. He denies any fever, nausea, vomiting, palpitations, syncope or presyncopal episodes. Duration: 6 days ROS Const Constitutional: Positive for chills, fatigue, weakness, headache(s) and excessive sweating; no weight change, body ache, sleep problems, fever(s), change in appetite, snoring or frequent falls Eyes Eyes: No change in vision, eye pain, light sensitivity or blurry vision ENT ENT: Positive for headache(s), ear pain and nasal congestion; no abnormal hearing, tinnitus, sore throat or neck pain Resp Respiratory: Positive for cough Cough: Yes productive and shortness of breath; no snoring or wheezing Cardio Cardiology: Positive for excessive sweating and chest pain at rest Symptoms: Sharp (On inspiration); no chest pain with exertion, shortness of breath, dyspnea on exertion, palpitations, orthopnea or lightheadedness Gastro GI: No abdominal pain, change in bowel habits, constipation, diarrhea, vomiting, nausea/dyspepsia or cramping Musc Musculoskeletal: No neck pain, abnormal walking, joint pain, back pain, limited range of motion, numbness, tingling or muscle weakness Skin Skin: No redness, dry skin, itching, lesions, wounds or rash Neuro Neurology: Positive for weakness and headache(s); no frequent falls, abnormal hearing, abnormal walking, numbness, tingling, abnormal speech, dizziness or memory loss Psych Psychiatric: No change in appetite, No memory loss, No anxiety, No depression, No Thoughts of harming yourself/Others Endo Endocrine: Positive for fatigue and excessive sweating; no cold intolerance, increased thirst/drinking, heat intolerance, flushing or increased hunger Aller/Imm Allergy/Immunologic: No wheezing, itchy eyes, hives or seasonal allergy symptoms Jose/Lymp Hematologic/Lymphatic: No easy bleeding, easy bruising or enlarged lymph nodes Exam Const General: cooperative, comfortable, acute distress mild and respiratory, ill appearing acutely Nutritional Appearance: average body habitus Orientation: alert, oriented x3, oriented to person, oriented to place, oriented to time Limitations: mental status not altered [facility] Head: normal to inspection, atraumatic Ears: hearing grossly normal bilaterally Nose: external nose normal, nasal discharge purulent bilaterally Face and sinus: normal facial exam, sinuses nontender Mouth: oral mucosae normal, moist mucous membranes Teeth and gingiva: dentition normal Throat: posterior oropharynx normal Eyes General: appearance normal, both eyes and all related structures Pupils: PERRL Neck Neck: normal visual inspection, no lymphadenopathy Resp Effort AND Inspection: normal respiratory effort, able to speak in complete sentences, normal respiratory pattern, symmetric chest movement, cough Quality of cough: productive, respiratory effort not decreased, audible wheezes, other (Conversational dyspnea) Auscultation: Bilateral: Diminished Lung Sounds, Inspiratory Wheezes Cardio Palpation: normal PMI Rhythm: regular rhythm Heart Sounds: S1 normal, S2 normal GI Inspection: other (Left lower quadrant ileostomy) Musc Musculoskeletal: No muscle weakness Skin General: no rashes or lesions noted (Diaphoretic) Wounds: wounds noted incision right: drainage, without odor and open (Small 1 mm macerated opening present center of healed incision draining small amount of serous fluid.); Negative for without any surrounding erythema (No surrounding erythema, fluctuance, streaking, or warmth.) Neuro General: alert, awake, oriented x3, CN's II-XI intact bilaterally Extrem General: full ROM, no clubbing, cyanosis or edema, no pedal edema Psych Appearance: grossly normal Mental Status: mental status grossly normal Affect: normal affect Office Procedures Aerosol treatment (first) Aerosol Treatment Procedure performed by: echo strange Aerosol Treatment: Yes tolerated well and improvement in breathing reported Number of aerosol treatments: 1 Office Meds albuterol sulfate Performing Provider: DERIC Banks Documented (not given) by: DERIC Banks on 03/10/17 16:01 Dose Route Admin Location Lot Number Expiration Date NDC Family Services Specialist 1.25 mg Continuous Nebulizatio n Comments: Duoneb admin, not avail to pick duoneb in computer Results BMSFLUAB Office Flu A AND B Negative FLU A AND B Last Edit by DERIC Banks on 03/10/17 16:10 Assessment AND Plan 1. URI (upper respiratory infection) J06.9 Plan Chest x-ray within normal limits, CBC and BMP reviewed and stable. However, given patient's multiple comorbidities, will treat with Levaquin 7 days. Patient does appear acutely ill in the office and educated patient on the importance of seeking emergent medical attention if her condition deteriorates. A breathing treatment was administered in the office of Shital and patient clinically improved and stated that she felt better after administration. Refill on her albuterol inhaler. Educated patient on signs and symptoms that require urgent medical attention. Rapid flus negative. Orders Orders: 2. Bronchitis J40 Plan The patient does have symptoms that correspond with bronchitis, steroid burst given and plan as above. Educated patient on how to properly take the medication. As needed ProAir inhaler. Educated patient that the steroids will negatively impact her blood sugar on the monitor this closely. Patient will not take her Zofran while on the Levaquin treatment due to QT prolongation. Mucinex DM given for cough. 3. Dyspnea R06.00 Plan Plan as above Dragon disclaimer Orders Orders: Plan Detail Other Orders Orders: Other Medications New: Follow Up As previously scheduled or sooner if needed. Coding Level of Care Code Off vis,est,level 3 Diagnoses URI (upper respiratory infection) J06.9 Bronchitis J40 Dyspnea R06.00 Additional Codes Aerosol Treatment (30522) 03/10/17 1612 <Electronically signed by Naima LOVETTC> Date Naima Strange NP-C Cosigner Signature: Date (if applicable) CC: BASIC METABOLIC Collected: 03/10/2017 Status: F Source: [facility] PROFILE ([facility]) 12:44 PM [facility] [place] TYPE CODE TESTS RESULT OUT OF RANGE REFERENCE UNITS LAB L501.0100 70-110 mg/dL High GLU 268 Result Comment: Glucose result greater than or equal to 200 mg/dL suggests DIABETES MELLITUS per A.D.A. criteria. LAB L501.1000 7-18 mg/dL High BUN 23 LAB L501.1100 0.55-1.02 mg/dL High CREAT,SERUM 1.23 Result Comment: The validity of the calculated GFR AND GFRAA in patients over 70 years has not been determined. Clinical correlation is essential. LAB L501.1110 >60 mL/min Low EST GFR 48 Result Comment: Non- GFR Calc LAB L501.1115 >60 mL/min Low EST GFR - AA 58 Result Comment: GFR Calc LAB L501.1300 10-20 RATIO Normal BUN/CRE 18.7 LAB L501.2200 8.5-10.1 mg/dL CA Normal 10.1 LAB L501.5300 136-145 mmol/L NA Normal 136 LAB L501.5600 3.5-5.1 mmol/L K Normal 4.2 LAB L501.5900 98-107 mmol/L CL Normal 102 LAB L501.6100 21.0-32.0 mmol/L Normal CO2 23.0 LAB L501.6200 5-15 Normal GAP 11 Performed By: #### L500.2500 #### [facility] [address] [place], [place], [id number] CBC W/DIFF, AUTOMATED Collected: 03/10/2017 Status: F Source: [place] 12:44 PM [facility] [place] [facility] TYPE CODE TESTS RESULT OUT OF RANGE REFERENCE UNITS LAB L100.1000 4.4-11.0 K/mm3 Normal WBC 8.1 LAB L100.1200 4.2-5.4 M/mm3 Normal RBC 4.86 LAB L100.1300 12.0-15.0 g/dl Normal HGB 13.4 LAB L100.1400 37-47 % Normal HCT 41.9 LAB L100.1500 81-99 fL Normal MCV 86.2 LAB L100.1600 27.0-32.0 pg Normal MCH 27.6 LAB L100.1700 32-36 g/gl Normal MCHC 32.0 LAB L100.1810 11.6-14.6 % High RDW CV 15.2 LAB L100.1820 35.1-43.9 fl High RDW SD 47.8 LAB L100.1900 150-450 K/mm3 Normal PLT 204 LAB L100.2000 6.2-12.0 fl High MPV 12.8 LAB L100.2100 47-70 % Normal NEUT% 52.0 LAB L100.2200 19-41 % Normal LY% 34.4 LAB L100.2300 0-10 % Normal MONO% 7.5 LAB L100.2400 0-5 % Normal EO% 4.6 LAB L100.2500 0-1 % Normal BASO% 0.4 LAB L100.2550 0.0-0.9 % High IM GRAN % 1.100 Result Comment: IG% - Immature Granulocytes (promyelocytes, myelocytes and metamyelocytes) > 1% indicates that a LEFT SHIFT is Present. LAB L100.2620 2.0-7.7 X10 3/uL Normal Absolute Neut 4.2 LAB L100.2720 0.83-4.51 X10 3/ul Normal Absolute Lymph 2.77 Performed By: #### L100.0100 #### [facility] [address] [place], [place], [address] HEMOGLOBIN A1C Collected: 03/10/2017 Status: F Source: [place] 12:44 PM [facility] [place] [facility] Order Comment: Order Date: 01/05/17 Order Info: [id number] - *HgA1C TYPE CODE TESTS RESULT OUT OF RANGE REFERENCE UNITS LAB L501.9985 4.2-6.3 % High HGB A1C 9.1 Performed By: #### L501.9985 #### [facility] [address] [place], [place], [address] CHEST PA AND LATERAL Observed: 03/10/2017 Status: F Source: [place] 12:25 PM [facility] Imaging Services [address] [place] [address] Chest PA and Lateral MR#: [id number] Acct: [id number] Name: AILYN MÉNDEZ Rep #: [id number] : 1960 F 56 From: Eric Spencer MD PCP: Shannan Mcgrath MD Status: REG CLI Study: Chest PA and Lateral Date of Exam: 03/10/17 Exam# [id number] Ordering Dr: Naima Strange HEAVY EQUIPMENT PLUMBING SUPERVISOR-Lalo STUDY: X-RAY CHEST REASON FOR EXAM: Female, 56 years old. Chest pain. Dyspnea and shortness of breath. TECHNIQUE: PA and lateral views of the chest. COMPARISON: Comparison is made with prior study dated September 25, 2016. FINDINGS: The lungs are clear and expanded. There is no demonstrated pleural abnormality. Sternal cerclage wires and vascular clips are present from a prior sternotomy and coronary artery bypass graft procedure (CABG). Normal mediastinum and marie. Normal visualized pulmonary arteries. Normal visualized aortic arch and descending thoracic aorta. Normal visualized thoracic spine. Normal visualized ribs, clavicles, and shoulders. There is no demonstrated abnormality of the visualized soft tissue structures of the upper abdomen. RAD/Chest PA and Lateral IMPRESSION: No acute abnormality is seen. Electronically Signed: Eric Spencer MD at 12:47 EST Tel [phone], Service support , CC: Shannan Mcgrath MD; Naima Strange NP Jboss Developer: Signed WOUND CTR HISTORY Observed: 03/05/2017 Status: F Source: [place] AND [facility]YS[facility] 2:23 PM [facility] Wound Healing Center [address] [place] [address] Wound Ctr History AND Physical 03/04/17 1802 MR#: [id number] Acct: [id number] Name: AILYN MÉNDEZ Rep #: [id number] : 1960 56 From: Shannan Mcgrath MD PCP: Shannan Mcgrath MD Status: REG RCR Y Location: WC (1) Surgical wound dehiscence Status: Acute Current Visit: Yes Code(s): T81.31XA - Disruption of external operation (surgical) wound, not elsewhere classified, initial encounter (2) Ileostomy status Status: Acute Current Visit: Yes Code(s): Z93.2 - Ileostomy status (3) DM2 (diabetes mellitus, type 2) Status: Chronic Current Visit: Yes Qualifiers: Code(s): E11.9 - Type 2 diabetes mellitus without complications (4) Ulcerative colitis Status: Chronic Current Visit: No Code(s): K51.90 - Ulcerative colitis, unspecified, without complications Comment: Status post ileostomy (5) Gastroparesis Status: Suspected Current Visit: Yes Code(s): K31.84 - Gastroparesis History of Present Illness Date of Service: 03/04/17 Chief Complaint: Right sided abdominal wound. History of Wound: Ms. Méndez is a 56yo with an extensive past medical history who presented here on referral by her general surgeon. She was referred to general surgeon after she presented to her PCP with an opening of her 10 year surgical scar. This was said to be sudden in onset without any known precipitating factor. There has been no discharge from the site and no increased tenderness around the area either. She had been cleaning with hydrogen peroxide and dressing with gauze as recommended by her surgeon. She has a history of prior surgical wound dehiscence and these were as a result of undissolved sutures. She feels well otherwise. As stated earlier she denies any discharge from the wound site. She also denies chills, fever or otherwise feeling of unwell. Past Medical History Past Medical History: Chronic Problems (Last Reviewed 02/23/17 @ 08:40 by Thai Denise MD) CAD (coronary artery disease) (Chronic) Hyperlipidemia (Chronic) Diarrhea (Chronic) Anemia of chronic renal failure, stage 3 (moderate) (Chronic) Obstructive sleep apnea (Chronic) Psoriasis (Chronic) Heart failure with preserved ejection fraction (Chronic) Benign essential HTN (Chronic) Depression (Chronic) DM2 (diabetes mellitus, type 2) (Chronic) FCHL (familial combined hyperlipidemia) (Chronic) Ulcerative colitis (Chronic) Status post ileostomy Hx of coronary artery disease (Chronic) Status post CABG, failed, status post multiple stents. Pulmonary hypertension (Chronic) History of coronary artery stent placement (Chronic 2012) Mid LAD and Cx 2012, D1 and prox OM1 2012, Prox SVG, Distal SVG to the Mid OM 2012 S/P CABG (coronary artery bypass graft) (Chronic 2012) JONES to LAD, SVG diag, SVG to OM, SVG to left PDA Chronic respiratory failure (Chronic) COPD (chronic obstructive pulmonary disease) (Chronic) Surgical History: angioplasty, coronary bypass surgery, - - Complete colectomy for ulcerative colitis 30 years ago. Patient had her ileostomy transitioned over from her right to her left. Allergies/Adverse Reactions: Allergies cinnamon [Cinnamon] Allergy (Verified 02/23/17 08:32) Anaphylaxis Influenza Virus Vaccines Allergy (Verified 02/23/17 08:37) Shortness of breath liraglutide [From Victoza] Allergy (Verified 02/23/17 08:32) Anaphylaxis metronidazole [From Flagyl] Allergy (Verified 02/23/17 08:32) Hives Metronidazole HCl [From Flagyl] Allergy (Verified 02/23/17 08:32) Hives Penicillins Allergy (Verified 02/23/17 08:32) Hives Sulfa (Sulfonamide Antibiotics) Allergy (Verified 02/23/17 08:32) Hives codeine Adverse Reaction (Verified 02/23/17 08:32) Stops Ileostomy dicyclomine HCl [From Bentyl] Adverse Reaction (Verified 02/23/17 08:32) Nausea metformin HCl [From Glucophage] Adverse Reaction (Verified 02/23/17 08:32) Nausea Fbpcoft-Oky-Cgj Reductase Inhibitor Adverse Reaction (Verified 02/23/17 08:32) Nausea/joints ache Home Medications: Ambulatory Orders Medication Instructions Recorded ALPRAZolam [Xanax] 0.5 mg PO QHS 01/21/15 Aspirin [Aspirin, Baby] 81 mg PO DAILY@0800 01/21/15 Atorvastatin Calcium [Lipitor] 80 mg PO QHS 01/21/15 - Family History Maternal Family History: Family History (Last Reviewed 02/23/17 @ 08:40 by Thai Denise MD) Mother CVA (cerebral vascular accident) Diabetes Brother Heart disease Father Cancer Grandmother Myocardial infarction Heart Disease, - - No autoimmune disease that she is aware of Paternal Family History: Family History (Last Reviewed 02/23/17 @ 08:40 by Thai Denise MD) Mother CVA (cerebral vascular accident) Diabetes Brother Heart disease Father Cancer Grandmother Myocardial infarction Cancer - Father has H/o lymphoma, - - No autoimmune disease that she is aware of Smoking Status: Former smoker Review of Systems Constitutional: Denies: Chills, Fever, Malaise Eyes: Denies: Pain, Redness HEENT: Denies: Difficulty Hearing, Difficulty Swallowing Cardiovascular: Denies: Chest Pain, Chest Tightness, Palpitations Gastrointestinal: Denies: Hematemesis, Vomiting Neurological: Denies: Change in Speech, Slurred speech Psychiatric: Denies: Homicidal Ideations, Suicidal Ideations - Physical Exam Vital Signs Temp Pulse Resp BP 97.5 F L 83 20 H 136/81 H 03/04/17 09:52 03/04/17 09:52 03/04/17 09:52 03/04/17 09:52 General: Alert, Oriented x3, Cooperative, No apparent distress HEENT: Atraumatic, Normocephalic Oral: Moist Mucosa Neck: Supple, No JVD Lungs: Clear to auscultation, Normal air movement Cardiovascular: Regular rate, Regular Rhythm, Normal S1, Normal S2 Abdomen: Soft, No Hepato-splenomegaly Extremities: No cyanosis Wound Measurements and Assessment WC - Nurse 1 - General Ulcer Measurement Start: 03/04/17 09:51 Freq: Status: Active Protocol: Activity Type Activity Date Activity User E-Sign Co-Sign Detail Recorded Client Recorded Date Recorded By Document 03/04/17 09:52 RB [id number] 03/04/17 09:59 RB Wound Center Nurse 1 [Ulcer Assessment WC - Nurse 2 - General Ulcer CM Notes Start: 03/04/17 09:51 Freq: Status: Active Protocol: Activity Type Activity Date Activity User E-Sign Co-Sign Detail Recorded Client Recorded Date Recorded By Document 03/04/17 10:35 DV [id number] 03/04/17 10:41 DV Wound Center Nurse 2 Neurological: Cranial nerves II-XII grossly intact Psych/Mental Status: Normal Affect Debridement Note Post-Debridement Measurements/Treatment WC - Nurse 2 - General Ulcer CM Notes Start: 03/04/17 09:51 Freq: Status: Active Protocol: Activity Type Activity Date Activity User E-Sign Co-Sign Detail Recorded Client Recorded Date Recorded By Document 03/04/17 10:35 DV [id number] 03/04/17 10:41 DV Wound Center Nurse 2 1. RLQ -Time 10:37 -Correct Patient Yes -Correct Side, Site, Position Yes -Correct Procedure Yes Wound debrided: Right lower abdominal wound. Type of Debridement: Excisional debridement Anesthesia Used: 5% Lidocaine Gel Depth: Down to and including healthy tissue, in the subcutaneous layer Percentage of wound debrided: 100 Instrument Used: 3mm curette, #15 blade, Forceps Tissue Removed: Slough, fatty tissue. Amount of bleeding with debridement: Mild Bleeding Controlled with: Pressure Patient tolerated procedure well Assessment/Plan Active Problems (Last Reviewed 02/23/17 @ 08:40 by Thai Denise MD) Ileostomy status (Acute) Surgical wound dehiscence (Acute) DM2 (diabetes mellitus, type 2) (Chronic) Assessment: Abdominal wound dehiscence of a 10 year surgical scar. Diabetes mellitus type 2 poorly controlled. Plan: Sudden onset wound dehiscence of the 10 year surgical scar. No known precipitating factor. No obvious signs of infection at this time however culture was taken after debridement was done. Due to a history of gastroparesis and poor intake a prealbumin was also done. Pack wound daily with Aquacel. Review results at next visit. Follow-up in 1 week. This note was generated with Your Tributeation software. It may contain incorrect words, spelling, and punctuation that were not noted in checking the note before signing. 12/29/17 1423 <Electronically signed by Shannan Mcgrath MD> Date Shannan Mcgrath MD CC: Signed PREALBUMIN Collected: 03/04/2017 Status: F Source: [place] 11:10 AM [facility] TYPE CODE TESTS RESULT OUT OF RANGE REFERENCE UNITS LAB L506.0500 20.0-40.0 mg/dL Normal PREALBUMIN 35.1 Performed By: #### L506.0500 #### [facility] [address] [place], [address] Observed: 03/04/2017 Status: F Source: [place] CULTURE, DEEP WOUND 10:45 AM [facility] RLQ ULCER Gram Stain Gram Stain 1+ Red Blood Cells No organisms seen No White Blood Cells Wound Culture No growth aerobically. Cult, Anaerobic No growth in 5 days. Performed By: #### M100.1500 #### [facility] [address] [place], [address] INITAL EVALUATION (1) Observed: 02/23/2017 Status: F Source: [place] - PT 2:08 PM [facility] [address] [place] [address]. [address] [place], [place] [address] Fax REHABILITATION SERVICES INITIAL EVALUATION MR#: [id number] Acct: [id number] Name: AILYN MÉNDEZ Rep #: [id number] : 1960 56 From: Merced Horvath PT, Cert. MDT Referring Dr.: Radha Cline MD Status: REG R Insurance: [facility] SELF PAY INSURANCE Patient's Visit Information AILYN MÉNDEZ is a 56 year old F referred to Physical Therapy by Radha Cline with a diagnosis of DDD. Date of Evaluation: 02/23/17 Physical Therapist: Merced Horvath - Visit Plan Frequency: 2-3x /Week Duration: 4-6 Weeks Plan: AQUATIC THERAPY. POSTURE CORRECTION/STRENGTHENING, INSTRUCTION IN APPROPRIATE BODY MECHANICS AND ACTIVITY MODIFICATIONS. DLS STARTING WITH A NEUTRAL SPINE PROGRESSING ROM TOLERATED. MARCEL LE ROM, STRETCHING AND STRENGTHENING. HEP INSTRUCTION. CONSIDER TENS, MASSAGE AND OTHER MODALITIES NEEDED. - Subjective Subjective: Work/Leisure: UNEMPLOYEED. Disability: YES SINCE 2002 FOR HEART DZ WITH SURGICAL COMPLICATIONS - 9 STENTS. Present symptoms: LOW BACK PAIN. MARCEL LE PAIN NUMBNESS AND TINGLING. Present since: 20 YEARS AGO. Pain Scale: WORST 9/10, LEAST 1/10. Currently: /10. Commenced as a result of: NO APPARENT REASON. Symptoms at onset: BACK. Worse: PROLONGED WALKING, PROLONGED STANDING, LIFTING, VACUUMING, PROLONGED SITTING OR SITTING WRONG. Better: PAIN PILLS. TENS UNIT. Disturbed sleep: YES. Previous historyPrevious treatment: PAIN PILLS. PAIN MGMT INJECTIONS. NO BACK SURGERY - AND DR. CLINE DOES NOT RECOMMEND IT. CHIRO YEARS AGO. NO PT FOR LUMBAR. MASSAGE THERAPY - TEMP RELEIF. Coughing/sneezing/straining: POSITIVE. Gait: DISTANCE LIMITED. LIMPING ON RIGHT LE. OCCASIONAL WALKER USE. Difficulty initiating urinatin: SOMETIMES. Accidents: NO. Unexplained weight loss: NO. Imaging: LUMBAR X-RAYS LAST WEEK. LUMBAR MRI - ABOUT 6 MONTHS AGO. - 2 BULGING DISCS WITH POSSIBLE NERVE INVOLVEMENT. DDD. PMH: MAJOR HEART CONDITION. IDDM. STAGE 3 KIDNEY DZ, PANCRATITIS. GALLBLADDER REMOVAL 3 MONTHS AGO, GASTROPARESIS, ILIOSTOMY. COPD, CAD. OTHER: HAVING ISSUES WITH MY BRAIN. IT IS NOT FUNCTIONING RIGHT. FORGETFUL. LIVES ALONE. SAW A NEUROLOGIST AND WAITING FOR TESTS AND TEST RESULTS. ALLOWED TO GO IN POOL WITH ILIOSTOMY. HAS HAD IT FOR 30 YEARS AND HAS BEEN IN POOLS WITH IT. - Objective Sitting Posture: POOR. Standing Posture: POOR. Lordosis: REDUCED. Lateral shift: NO. Relevant shift: N/A. Active Correction of posture: WORSE. Other Observations: INDEP GAIT INTO PT WITHOUT ANY ASSISTIVE DEVICES. Motor deficit: MARCEL LE WEAKNESS GRADED 3+ TO 4-/5 IN HIPS AND KNEES. MARCEL ANKLE DORSIFLEX 5/5. Sensory deficit: MARCEL LE LIGHT TOUCH SENSATION IS INTACT AND SYMMETRICAL. FEET NT. ROM deficit: TIGHT MARCEL HIP FLEXORS, HS'S AND GASTROC SOLEUS COMPLEX'S. Reflexes: 1/2 MARCEL LE'S. Dural Signs: POSITIVE MARCEL LE DURAL SIGNS. Lumbar mvmt loss: flex - MOD. ext - SUMANTH. R SG - SUMANTH. L SG - SUMANTH. INCREASED LBP WITH LUMBAR ROM TESTING ALL PLANES. Core strength: POOR. Palpation: TENDERNESS WITH LIGHT PALPATION OF ENTIRE LUMBAR SPINE AND RIGHT BUTTOCK AREA. NOT ACUTELY TENDER OVER MARCEL GREATER TROCH REGIONS. - Goals Goal 1:: DECREASE C/O LBP Goal Time Frame: 4-6 Weeks Goal 2:: IMPROVE PERSONAL CARE, LIFTING, WALKING, SITTING, STANDING, SLEEPING, SOCIAL LIFE, TRAVELING AND HOMEMAKING FUNCTION Goal Time Frame: 4-6 Weeks Goal 3:: INSTRUCT IN PROPHYLAXIS Goal Time Frame: 4-6 Weeks - Rehabilitation Potential Rehabilitation Potential: Fair - Anticipated Interventions Patient/Client Instruction: Educate patient on: Condition, Plan of Care, Risk Factors, Benefits of Fitness Program For the Purpose of:: To improve self management Therapeutic Exercise to Include: Strength training, Body mechanics, Postural training, Flexibilty training, In an aquatic setting For the Purpose of:: To improve ability of physical actions for home/community/work/leisure Thank you for the opportunity to evaluate your patient. For Medicare and Medicare HMO plans, please review the plan of care and approve it. It will need to be FAXED BACK to us at [phone] for Medicare purposes. Please let me know if there are questions or concerns regarding this plan of care. Physician Signature: Date: <Electronically signed by Merced Horvath PT, Cert. MDT> 02/23/17 1408 CC: Shannan Mcgrath MD; Radha Cline MD ADE Signed For Medicare only, by signing this I certify the plan of care. Physicians Signature Date SURGERY VISIT REPORT Observed: 02/23/2017 Status: F Source: [place] 9:17 AM [facility] [address] [place] [address] OFFICE VISIT Date of Service: 02/23/17 MR#: [id number] Acct: [id number] Name: AILYN MÉNDEZ Rep #: [id number] : 1960 Provider: Thai Denise MD Age/Sex: 56/F Location: [facility] Status: Signed Intake Intake Visit Reasons: old incision opening/on antibiotics 10 days 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: No Is patient in pain?: No Allergies cinnamon [Cinnamon] Allergy (Verified 02/23/17 08:32) Anaphylaxis Influenza Virus Vaccines Allergy (Verified 02/23/17 08:37) Shortness of breath liraglutide [From Victoza] Allergy (Verified 02/23/17 08:32) Anaphylaxis metronidazole [From Flagyl] Allergy (Verified 02/23/17 08:32) Hives Metronidazole HCl [From Flagyl] Allergy (Verified 02/23/17 08:32) Hives Penicillins Allergy (Verified 02/23/17 08:32) Hives Sulfa (Sulfonamide Antibiotics) Allergy (Verified 02/23/17 08:32) Hives codeine Adverse Reaction (Verified 02/23/17 08:32) Stops Ileostomy dicyclomine HCl [From Bentyl] Adverse Reaction (Verified 02/23/17 08:32) Nausea metformin HCl [From Glucophage] Adverse Reaction (Verified 02/23/17 08:32) Nausea Wzhvrkq-Img-Jiy Reductase Inhibitor Adverse Reaction (Verified 02/23/17 08:32) Nausea/joints ache Medications ALPRAZolam [Xanax] 0.5 mg PO QHS 01/21/15 [History Confirmed 02/23/17] Aspirin [Aspirin, Baby] 81 mg PO DAILY@0800 01/21/15 [History Confirmed 02/23/17] Atorvastatin Calcium [Lipitor] 80 mg PO QHS 01/21/15 [History Confirmed 02/23/17] Clopidogrel Bisulfate [Plavix] 75 mg PO DAILY 01/21/15 [History Confirmed 02/23/17] Duloxetine Hcl [Cymbalta] 60 mg PO BID 01/21/15 [History Confirmed 02/23/17] Magnesium Oxide [Mag-Ox 400] 400 mg PO BID 01/21/15 [History Confirmed 02/23/17] Metoprolol Tartrate [Lopressor (beta esha)] 75 mg PO TID 01/21/15 [History Confirmed 02/23/17] Bupropion HCl [Wellbutrin Xl] 100 mg PO TID 03/28/16 [History Confirmed 02/23/17] Nitroglycerin [Nitrostat] 0.4 mg SL Q5M PRN 07/12/16 [History Confirmed 02/23/17] Insulin Aspart [Novolog Vial] 20 - 40 unit SQ TIDCM 09/03/16 [History Confirmed 02/23/17] Isosorbide DN [Isordil] 30 mg PO TID 09/03/16 [History Confirmed 02/23/17] Pregabalin [Lyrica] 100 mg PO BID 09/03/16 [History Confirmed 02/23/17] Ondansetron HCl [Zofran] 4 mg PO Q8H PRN PRN #20 tab 09/05/16 [Rx Confirmed 02/23/17] Baclofen 10 mg PO QHS 11/24/16 [History Confirmed 02/23/17] Calcium Carbonate [Calcium] 600 mg PO BID 11/24/16 [History Confirmed 02/23/17] Cholecalciferol (Vitamin D3) [Vitamin D3] 2,000 unit PO DAILY 11/24/16 [History Confirmed 02/23/17] Fenofibrate 200 mg PO DAILY 11/24/16 [History Confirmed 02/23/17] Insulin Glargine,Hum.rec.anlog [Basaglar Kwikpen U-100] 40 unit SQ DAILY 11/24/16 [History Confirmed 02/23/17] Insulin Glargine,Hum.rec.anlog [Basaglar Kwikpen U-100] 50 unit SQ QHS 11/24/16 [History Confirmed 02/23/17] TraMADol [Ultram (G)] 50 mg PO QHS 11/24/16 [History Confirmed 02/23/17] blood sugar diagnostic strips See Dose Instructions .ROUTE .MEDSUPPLY #20 ea 02/12/17 [History Confirmed 02/23/17] loperamide 2 mg tablet 2 mg PO .qid PRN tab 02/12/17 [History Confirmed 02/23/17] omeprazole 20 mg capsule,delayed release 20 mg PO QDAY 02/12/17 [History Confirmed 02/23/17] triamcinolone acetonide 0.1 % topical cream 1 applic TOPICAL BID 02/12/17 [History Confirmed 02/23/17] [facility] Medical History CAD (coronary artery disease) (Chronic) Hyperlipidemia (Chronic) Acute pancreatitis (Resolved) Diarrhea (Chronic) Anemia of chronic renal failure, stage 3 (moderate) (Chronic) Obstructive sleep apnea (Chronic) Gastroparesis (Suspected) Psoriasis (Chronic) Heart failure with preserved ejection fraction (Chronic) Benign essential HTN (Chronic) Depression (Chronic) DM2 (diabetes mellitus, type 2) (Chronic) FCHL (familial combined hyperlipidemia) (Chronic) Ulcerative colitis (Chronic) Hx of coronary artery disease (Chronic) Pulmonary hypertension (Chronic) History of coronary artery stent placement (Chronic 2012) Chronic respiratory failure (Chronic) COPD (chronic obstructive pulmonary disease) (Chronic) Chest pain (Resolved) Hypokalemia (Resolved) Abdominal pain (Inactive) Acute on chronic renal insufficiency (Inactive) Chest pain at rest (Inactive) Diarrhea (Inactive) Vasovagal episode (Inactive) Surgical History S/P CABG (coronary artery bypass graft) (Chronic 2012) H/O colectomy (Acute) H/O total hysterectomy (Acute) gallbdder removal (Acute) ileostomy (Acute) left thumb surgery (Acute) lysis of adhesion (Acute) vestibular nerve surgery for Meniere's (Acute) Family History Mother CVA (cerebral vascular accident) Diabetes Brother Heart disease of CAD at 65 Father Cancer lymphomia Grandmother Myocardial infarction of CT in her 70s Social History Smoking Status: Former smoker alcohol intake: never substance use type: does not use caffeine: Yes Type: coffee eating out: 1-3 times/week what type of physical activity do you participate in: none seatbelt use: always do you feel safe at home: Yes HPI HPI HPI: AILYN MÉNDEZ, is a 56 F who presents to the office today for evaluation of an incision in her right lower quadrant. This is made approximately 10 years ago after she had closure of her ileostomy. She states that she has had some purulent discharge from the incision after it was significantly inflamed. She was treated with doxycycline and was seen by her primary care physician. In the past I have seen her and had to remove permanent sutures that became chronically inflamed in her midline abdominal area. Her presentation today is similar to that in the past. She has recently had a surgery by myself to have her gallbladder removed and has recovered well from this. I am being consulted by Naima Strange for evaluation of cellulitis and nonhealing surgical wound. Exam Skin Other: Wound in the right lower quadrant shows some serous drainage there is no odor there is no cellulitis. The opening itself is not quite a centimeter in size. It is not foul-smelling. I see no obvious foreign material. Assessment AND Plan Problems 1. Nonhealing nonsurgical wound T14.8XXA Plan I am going to get the patient to the wound center to see if there are any conservative measures that could be done here to get this wound healed. If this is unsuccessful then I will be forced to take her to surgery and do an exploration of the wound to see if there is a chronically infected suture. 02/23/17 0917 <Electronically signed by Thai Denise MD> Date Thai Denise MD Cosigner Signature: Date (if applicable) CC: Naima Strange HEAVY EQUIPMENT PLUMBING SUPERVISOR CBC-COMPLETE BLOOD CNT Collected: 02/23/2017 Status: F Source: [place] NO DIFF 8:10 AM [facility] [place] [place] TYPE CODE TESTS RESULT OUT OF RANGE REFERENCE UNITS LAB L100.1000 4.4-11.0 K/mm3 Normal WBC 6.3 LAB L100.1200 4.2-5.4 M/mm3 Normal RBC 4.70 LAB L100.1300 12.0-15.0 g/dl Normal HGB 13.2 LAB L100.1400 37-47 % Normal HCT 41.3 LAB L100.1500 81-99 fL Normal MCV 87.9 LAB L100.1600 27.0-32.0 pg Normal MCH 28.1 LAB L100.1700 32-36 g/gl Normal MCHC 32.0 LAB L100.1810 11.6-14.6 % High RDW CV 15.2 LAB L100.1820 35.1-43.9 fl High RDW SD 48.7 LAB L100.1900 150-450 K/mm3 Normal PLT 175 LAB L100.2000 6.2-12.0 fl High MPV 13.0 Performed By: #### L100.0500 #### [facility] [address] [place], [address] COMPREHENSIVE METABOLIC Collected: 02/23/2017 Status: F Source: [facility] 8:10 AM [facility] Order Comment: Is Patient Taking Vitamins or Folic Acid Supplements? N TYPE CODE TESTS RESULT OUT OF RANGE REFERENCE UNITS LAB L501.0100 70-110 mg/dL High GLU 298 Result Comment: Glucose result greater than or equal to 200 mg/dL suggests DIABETES MELLITUS per A.D.A. criteria. LAB L501.1000 7-18 mg/dL High BUN 25 LAB L501.1100 0.55-1.02 mg/dL High CREAT,SERUM 1.70 Result Comment: The validity of the calculated GFR AND GFRAA in patients over 70 years has not been determined. Clinical correlation is essential. LAB L501.1110 >60 mL/min Low EST GFR 33 Result Comment: Non- GFR Calc LAB L501.1115 >60 mL/min Low EST GFR - AA 40 Result Comment: GFR Calc LAB L501.1300 10-20 RATIO Normal BUN/CRE 14.7 LAB L501.1500 6.4-8.2 g/dL T Normal PROT 7.7 LAB L501.1800 3.4-5.0 g/dL Normal ALB 3.6 Result Comment: Please note revised Albumin AND Globulin reference range effective 2016. LAB L501.1950 2.2-4.2 g/dL Normal GLOB 4.1 LAB L501.2000 0.9-2.4 RATIO Normal A/G 0.9 LAB L501.2200 8.5-10.1 mg/dL Normal CA 9.6 LAB L501.4100 15-37 U/L Normal AST 18 LAB L501.4305 45-117 U/L High ALK P 173 LAB L501.4405 12-78 U/L Normal ALT 27 LAB L501.4600 0.20-1.00 mg/dL Normal T BILI 0.50 LAB L501.5300 136-145 mmol/L Normal NA 138 LAB L501.5600 3.5-5.1 mmol/L Normal K 4.0 LAB L501.5900 98-107 mmol/L Normal CL 104 LAB L501.6100 21.0-32.0 mmol/L Normal CO2 24.0 LAB L501.6200 5-15 Normal GAP 10 Performed By: #### L500.4050, L500.4100, L501.2300, L501.5200, L501.58543, L501.9310, L501.9520, L503.6150, L503.6550, L506.0250, L506.0400 #### [facility] [address] [place], [address] LIPID PROFILE Collected: 02/23/2017 Status: F Source: [place] 8:10 AM [facility] [place] Order Comment: Is Patient Taking Vitamins or Folic Acid Supplements? N TYPE CODE TESTS RESULT OUT OF RANGE REFERENCE UNITS LAB L501.4900 200 mg/dL Normal CHOL 168 Result Comment: <200 mg/dL Desirable 200-240 mg/dL Borderline >240 mg/dL High Risk LAB L501.5000 mg/dL High TRIG 247 Result Comment: The drugs N-Acetylcysteine and Metamizole may falsely depress this assay. Serum Triglycerides Reference Interval Normal <150 mg/dL Borderline high 150 - 199 mg/dL High 200 - 499 mg/dL Very High > or = 500 mg/dL LAB L501.6400 mg/dL Normal HDL 61 Result Comment: The drugs N-Acetylcysteine and Metamizole may falsely depress this assay. Reference Range HDL <40 mg/dL Low HDL Cholesterol HDL >or= 60 mg/dL High HDL Cholesterol LAB L501.6500 0-130 mg/dL Normal LDL 58 LAB L501.6600 5-40 mg/dL High VLDL 49 Performed By: #### L500.4050, L500.4100, L501.2300, L501.5200, L501.99943, L501.9310, L501.9520, L503.6150, L503.6550, L506.0250, L506.0400 #### [facility] [address] [place], [place], [address] (524) PHOSPHORUS Collected: 02/23/2017 Status: F Source: [place] 8:10 AM [facility] Order Comment: Is Patient Taking Vitamins or Folic Acid Supplements? N TYPE CODE TESTS RESULT OUT OF RANGE REFERENCE UNITS LAB L501.2300 2.5-4.9 mg/dL Low PHOS 2.2 Performed By: #### L500.4050, L500.4100, L501.2300, L501.5200, L501.18256, L501.9310, L501.9520, L503.6150, L503.6550, L506.0250, L506.0400 #### [facility] [address] [place], [place], [id number] MAGNESIUM Collected: 02/23/2017 Status: F Source: [place] 8:10 AM [facility] [place] Order Comment: Is Patient Taking Vitamins or Folic Acid Supplements? N TYPE CODE TESTS RESULT OUT OF RANGE REFERENCE UNITS LAB L501.5200 1.8-2.4 mg/dL Low MG 1.3 Performed By: #### L500.4050, L500.4100, L501.2300, L501.5200, L501.87146, L501.9310, L501.9520, L503.6150, L503.6550, L506.0250, L506.0400 #### [facility] [address] [place], [place], [address] FREE T3 Collected: 02/23/2017 Status: F Source: [place] 8:10 AM [facility] Order Comment: Is Patient Taking Vitamins or Folic Acid Supplements? N TYPE CODE TESTS RESULT OUT OF RANGE REFERENCE UNITS LAB L501.57552 2.18-3.98 pg/mL Normal FREE T3 2.8 Performed By: #### L500.4050, L500.4100, L501.2300, L501.5200, L501.77987, L501.9310, L501.9520, L503.6150, L503.6550, L506.0250, L506.0400 #### [facility] [address] [place], [place], [address] T4 TOTAL, THYROXIN Collected: 02/23/2017 Status: F Source: [place] 8:10 AM [facility] Order Comment: Is Patient Taking Vitamins or Folic Acid Supplements? N TYPE CODE TESTS RESULT OUT OF RANGE REFERENCE UNITS LAB L501.9310 4.8-13.9 ug/dL T4 Normal THYROXIN 7.6 Performed By: #### L500.4050, L500.4100, L501.2300, L501.5200, L501.70299, L501.9310, L501.9520, L503.6150, L503.6550, L506.0250, L506.0400 #### [facility] [address] [place], [place], [address] THYROID STIM HORMONE Collected: 02/23/2017 Status: F Source: [place] (TSH) 8:10 AM [facility] Order Comment: Is Patient Taking Vitamins or Folic Acid Supplements? N TYPE CODE TESTS RESULT OUT OF RANGE REFERENCE UNITS LAB L501.9520 0.358-3.74 uIU/mL Normal TSH 2.38 Performed By: #### L500.4050, L500.4100, L501.2300, L501.5200, L501.36675, L501.9310, L501.9520, L503.6150, L503.6550, L506.0250, L506.0400 #### [facility] [address] [place], [place], [address] IRON Collected: 02/23/2017 Status: F Source: [place] 8:10 AM [facility] Order Comment: Is Patient Taking Vitamins or Folic Acid Supplements? N TYPE CODE TESTS RESULT OUT OF RANGE REFERENCE UNITS LAB L503.6150 50-170 ug/dL Normal IRON 77 Performed By: #### L500.4050, L500.4100, L501.2300, L501.5200, L501.23537, L501.9310, L501.9520, L503.6150, L503.6550, L506.0250, L506.0400 #### [facility] [address] [place], [place], [address] FERRITIN Collected: 02/23/2017 Status: F Source: [place] 8:10 AM [facility] Order Comment: Is Patient Taking Vitamins or Folic Acid Supplements? N TYPE CODE TESTS RESULT OUT OF RANGE REFERENCE UNITS LAB L503.6550 8-252 ng/mL Normal FERRITIN 171 Performed By: #### L500.4050, L500.4100, L501.2300, L501.5200, L501.86322, L501.9310, L501.9520, L503.6150, L503.6550, L506.0250, L506.0400 #### [facility] [address] [place], [place], [address] FOLATES, (FOLIC ACID) Collected: 02/23/2017 Status: F Source: [place] 8:10 AM [facility] Order Comment: Is Patient Taking Vitamins or Folic Acid Supplements? N TYPE CODE TESTS RESULT OUT OF RANGE REFERENCE UNITS LAB L506.0250 3.1-55.4 ng/mL Normal FOLATES 12.40 Result Comment: Please note revised Folates reference range effective 2016. Performed By: #### L500.4050, L500.4100, L501.2300, L501.5200, L501.27558, L501.9310, L501.9520, L503.6150, L503.6550, L506.0250, L506.0400 #### [facility] [address] [place], [place], [address] T4 FREE DIRECT Collected: 02/23/2017 Status: F Source: [place] 8:10 AM [facility] Order Comment: Is Patient Taking Vitamins or Folic Acid Supplements? N TYPE CODE TESTS RESULT OUT OF RANGE REFERENCE UNITS LAB L506.0400 0.76-1.46 ng/dL Normal T4 FREE 0.94 DIRECT Performed By: #### L500.4050, L500.4100, L501.2300, L501.5200, L501.88716, L501.9310, L501.9520, L503.6150, L503.6550, L506.0250, L506.0400 #### [facility] [address] [place], [address] RUBELLA IGG Collected: 02/23/2017 Status: F Source: [place] 8:10 AM [facility] [place] TYPE CODE TESTS RESULT OUT OF RANGE REFERENCE UNITS LAB L509.4000 IU/mL Normal Rubella IgG 113.3 Result Comment: Antibody results Interpretation of Immune Status < 5 IU/ml Presumed Non-immune 5 - < 10 IU/ml Equivocal > or = 10 IU/ml Presumed Immune Performed By: #### L509.4000, L503.0105 #### [facility] [place], [address] VITAMIN B12 Collected: 02/23/2017 Status: F Source: [place] 8:10 AM [facility] TYPE CODE TESTS RESULT OUT OF RANGE REFERENCE UNITS LAB L503.0105 211-911 pg/mL Normal Vitamin B12 302 Performed By: #### L509.4000, L503.0105 #### [facility] [address] [place] [address], [address] HEPATITIS B SURFACE Collected: 02/23/2017 Status: F Source: [place] AG 8:10 AM [facility] TYPE CODE TESTS RESULT OUT OF RANGE REFERENCE UNITS LAB L3100.0400 Negative Normal HB Negative SURF AG Result Comment: Performed at: [address] [id number] Knurling Machine Operator: Phillip Vera PhD, Phone: [phone] Performed at: [facility] [id number] Knurling Machine Operator: Kendrick Drew MD, Phone: [phone] Performed By: #### L3100.0390, L3100.0528, L3300.8000, L3900.0100 #### [facility] (refer to report for specific site) refer to report for address and phone number HEP B SURFACE Collected: 02/23/2017 Status: F Source: [place] ANTIBODIES 8:10 AM [facility] TYPE CODE TESTS RESULT OUT OF RANGE REFERENCE UNITS LAB L3100.0528 . Normal Hep B Non Reactive Ayde AB Result Comment: Non Reactive: Inconsistent with immunity, less than 10 mIU/mL Reactive: Consistent with immunity, greater than 9.9 mIU/mL Performed By: #### L3100.0390, L3100.0528, L3300.8000, L3900.0100 #### [facility] (refer to report for specific site) refer to report for address and phone number VITAMIN B1, THIAMINE Collected: 02/23/2017 Status: F Source: [place] 8:10 AM [facility] TYPE CODE TESTS RESULT OUT OF RANGE REFERENCE UNITS LAB L3300.8000 66.5-200.0 nmol/L Normal VIT B1 117.8 Result Comment: This test was developed and its performance characteristics determined by [facility]. It has not been cleared or approved by the Food and Drug Administration. Performed By: #### L3100.0390, L3100.0528, L3300.8000, L3900.0100 #### [facility] (refer to report for specific site) refer to report for address and phone number HIV SCREEN 4TH GEN Collected: 02/23/2017 Status: F Source: [place] W/CONFIRM 8:10 AM [facility] [place] TYPE CODE TESTS RESULT OUT OF RANGE REFERENCE UNITS LAB L3900.0180 Non Reactive Normal HIV1/0/2 Non Reactive SCREEN Performed By: #### L3100.0390, L3100.0528, L3300.8000, L3900.0100 #### [facility] (refer to report for specific site) refer to report for address and phone number RAPID PLASMIN REAGIN Collected: 02/23/2017 Status: F Source: [place] (RPR) 8:10 AM [facility] TYPE CODE TESTS RESULT OUT OF REFERENCE UNITS RANGE LAB L700.5000 NONREACTIVE NONREACTIVE Normal RPR Performed By: #### L700.5000 #### [facility] [address] [place], [address] ALLERGIES ALLERGIES DATE TYPE / CODE NAME / CODE REACTION SEVERITY SOURCE Drug dicyclomine Nausea Unknown [place] 8 Allergy/920912168( HCl/K001754033(RX [facility]) NORM) Hospital Repository Drug Metronidazole Hives Unknown [place] 8 Allergy/505308399( HCl/D854392255(RX [facility]) NORM) Hospital Repository Drug metformin Nausea Unknown [place] 8 Allergy/495761848( HCl/Z208029644(RX [facility]) NORM) Hospital Repository Drug Penicillins/F0010 Hives Unknown [place] 8 Allergy/389033188( 54003(RXNORM) Community SNOM[facility]) Hospital Repository Drug Sulfa Hives Unknown [place] 8 Allergy/825680927( (Sulfonamide Community SNOMED CT) Antibiotics)/F001 Hospital 971208(RXNORM) Repository Drug Influenza Virus Shortness of Unknown [place] 8 Allergy/976326720( Vaccines/H1020658 breath [facility]OM[facility]) 12(RXNORM) Hospital Repository Drug Hsxqtti-Nrf-Thj Nausea/joints Unknown [place] 8 Allergy/046685056( Reductase ache [facility] SN[facility]) Inhibitor/V258080 Hospital 095(RXNORM) Repository Drug codeine/S78397157 Stops Ileostomy Unknown [place] 8 Allergy/110135927( 0(RXNORM) Community SN[facility]) Hospital Repository Drug cinnamon/W8522204 Anaphylaxis Unknown [place] 8 Allergy/139074205( 64(RXNORM) Community SNOM[facility]) Hospital Repository Drug ciprofloxacin/F00 Nausea Unknown [place] 8 Allergy/020526345( 4505954(RXNORM) Community SNOM[facility]) Hospital Repository Drug metronidazole/F00 Hives Unknown [place] 8 Allergy/399967601( 5179646(RXNORM) Community SN[facility]) Hospital Repository Drug liraglutide/F0060 Anaphylaxis Unknown [place] 8 Allergy/704829119( 93424(RXNORM) Community SNOM[facility] CT) Hospital Repository Miscellaneous INFLUENZA SHOT Shortness of Unknown [place] 7 Allergy/341487828( breath [facility] SNOM[facility]) Hospital Repository DRUG LIRAGLUTIDE OTHER: SEE C M[place] 7 INGREDI/387088514( Clinic Other SNOMED CT) [place] Repository DRUG/894087526(SNO FLU VACC SHORTNESS OF M[place] [address]) AU3695-52 65YR Clinic Other UP(PF) [place] Repository Drug INFLUENZA VIRUS SHORTNESS OF [place] 6 Class/425547442(SN VACCINES Clinic Other OMED CT) [place] Repository DRUG METFORMIN HCL GI UPSET [place] 4 INGREDI/302401190( Clinic Other SNOMED CT) [place] Repository DRUG DICYCLOMINE Vomiting High [place] 4 INGREDI/400157190( Clinic Other SNOMED CT) [place] Repository DRUG METRONIDAZOLE HCL HIVES [place] 4 INGREDI/054301900( Clinic Other SNOMED CT) [place] Repository DRUG SULFASALAZINE HIVES M[place] 9 INGREDI/211292616( Clinic Other SNOMED CT) [place] Repository Drug SULFA HIVES Mendez 9 Class/338129716(SN (SULFONAMIDE Clinic Other OMED CT) ANTIBIOTICS) [place] Repository DRUG CINNAMON ANAPHYLAXIS High [place] 9 INGREDI/358981455( Clinic Other SNOMED CT) [place] Repository DRUG CODEINE INTOLERANCE [place] 9 INGREDI/227160723( Clinic Other SNOMED CT) [place] Repository Drug PENICILLINS HIVES M[place] 9 Class/021828569(SN Clinic Other OMED CT) [place] Repository ENCOUNTERS ENCOUNTERS ADMIT/DISCHARGE ACCOUNT NUMBER ADMITTING ENCOUNTER LOCATION SOURCE CLASS 02/22/2018/02/23/20 [id number] Ambulatory BMSBuilding: [facility] 18 [facility] Repository 02/18/2018/02/19/20 [id number] Ambulatory BMSBuilding: [place] 18 [facility] [place] [place] 02/15/2018 [id number] Ambulatory [facility] ding:BHIOP Repository 02/14/2018/02/15/20 [id number] Ambulatory [place] ding:PT Repository 02/09/2018/02/10/20 [id number] Ambulatory BMSBuilding: [place] 18 [facility] Repository 02/01/2018 [id number] Ambulatory [facility] ding:LAB Repository 02/01/2018/02/02/20 [id number] Ambulatory BMSBuilding: [place] 18 BMS.[facility] Repository 01/26/2018/02/05/20 [id number] Ambulatory [place] ding:BHIOP Repository 01/24/2018 [id number] Ambulatory [facility] ding:SL Repository 01/24/2018/01/25/20 [id number] Ambulatory BMSBuilding: [place] 18 BMS.[facility] Repository 01/12/2018 [id number] Ambulatory BMSBuilding: [place] [facility] Repository 01/11/2018/01/14/20 [id number] White, Valentine Ambulatory [address] ding:ICURoom Repository : [id number]: 1 01/11/2018 [id number] White, Valentine Ambulatory BMSBuilding: Anthony BMS.[facility] Repository 01/11/2018 [id number] White, Valentine Ambulatory BMSBuilding: Anthony BMS.[facility] Repository 01/11/2018 [id number] White, Valentine Ambulatory BMSBuilding: [place] BMS..[facility] Repository 01/11/2018 [id number] White, Valentine Ambulatory BMSBuilding: [place] BMS.[facility] Repository 01/11/2018 [id number] Ambulatory BMSBuilding: [place] [facility] Repository 01/05/2018 [id number] Ambulatory [facility] ding:US Repository 01/04/2018/01/05/20 [id number] Ambulatory BMSBuilding: [place] 18 BMS.[facility] Repository 01/04/2018 [id number] Ambulatory [facility] ding:LAB Repository 01/04/2018/01/05/20 [id number] Ambulatory BMSBuilding: [place] 18 BMS.[facility] Repository 12/20/2017/12/21/19 [id number] Ambulatory BMSBuilding: [place] 18 BMS.[facility] Repository 12/13/2017/12/14/19 [id number] Ambulatory BMSBuilding: [place] 18 BMS.[facility] Repository 11/26/2017/11/27/19 [id number] Ambulatory BMSBuilding: [place] 18 BMS.[facility] Repository 11/25/2017/11/26/19 [id number] Ambulatory [address] Repository 11/25/2017/11/27/19 [id number] Ambulatory [address] Repository 11/19/2017 [id number] Ambulatory [facility] ding:LABSPEC Repository 11/19/2017/11/20/19 [id number] Ambulatory BMSBuilding: [place] 18 BMS.[facility] Repository 11/09/2017 [id number] Ambulatory [facility] ding:OPBI Repository 11/02/2017/11/03/19 [id number] Ambulatory BMSBuilding: [place] 18 BMS.[facility] Repository 10/21/2017 [id number] Ambulatory [facility] ding:OPUS Repository 10/19/2017 [id number] Ambulatory [facility] ding:LAB Repository 10/18/2017/10/19/19 [id number] Ambulatory BMSBuilding: [place] 18 BMS.[facility] Repository 10/04/2017/10/05/19 [id number] Ambulatory BMSBuilding: [place] 18 BMS.[facility] Repository 10/01/2017 [id number] Ambulatory BMSBuilding: [place] BMS.[facility] Repository 09/22/2017/09/23/19 [id number] Ambulatory [address] Repository 09/22/2017 [id number] Ambulatory [facility] Repository 09/16/2017/09/17/19 [id number] Ambulatory BMSBuilding: [place] 18 BMS.[facility] Repository 09/12/2017/09/13/19 [id number] Emergency Anthony [address] ding:ED Repository 09/06/2017/09/09/19 [id number] Audrey Vail Inpatient [place] 18 [facility] ding:JT1Mrgp Repository : EN755Jyr: 1 09/06/2017 [id number] Audrey Vail Ambulatory BMSBuilding: Anthony Rosie BMS.[facility] Repository 09/06/2017 [id number] Genna Audrey Ambulatory BMSBuilding: [place] Rosie BMS.[facility] Repository 09/06/2017 [id number] KorAudrey masters Ambulatory BMSBuilding: [place] Rosie BMS.[facility] Repository 09/02/2017/09/03/19 [id number] Ambulatory BMSBuilding: [place] 18 BMS.[facility] Repository 08/19/2017/08/24/19 [id number] DEAN ROSE Inpatient [address] Repository 08/16/2017 [id number] Ambulatory [facility] ding:WC Repository 08/12/2017/08/14/19 [id number] Ambulatory [address] Main [place] Repository 08/11/2017/08/13/19 [id number] Ambulatory [address] [place] Repository 08/11/2017/08/12/19 [id number] Ambulatory [address] Main [place] Repository 08/11/2017/08/13/19 [id number] Ambulatory [address] Main [place] Repository 08/11/2017/08/12/19 [id number] Ambulatory [address] Main [place] Repository 08/09/2017/08/10/19 [id number] Ambulatory [address] Main [place] Repository 08/09/2017/08/11/19 [id number] Ambulatory [address] Main [place] Repository 08/09/2017 [id number] Ambulatory [facility] Main [place] Repository 08/09/2017/08/10/19 [id number] Ambulatory [address] Main [place] Repository 08/09/2017/08/10/19 [id number] Ambulatory [address] Main [place] Repository 08/09/2017/08/11/19 [id number] Ambulatory [address] Main [place] Repository 08/09/2017/08/10/19 [id number] Ambulatory [address] Repository 08/05/2017 [id number] Ambulatory [facility] ding:CVS Repository 08/04/2017/08/06/19 [id number] Ambulatory [address] ding:WC Repository 08/04/2017 [id number] Ambulatory BMSBuilding: [facility] Repository 08/04/2017 [id number] Ambulatory BMSBuilding: [facility] Repository 07/28/2017 [id number] Ambulatory BMSBuilding: [facility] Repository 07/28/2017 [id number] Ambulatory BMSBuilding: [facility] Repository 07/26/2017/07/27/19 [id number] Ambulatory BMSBuilding: [address] Repository 07/21/2017 [id number] Ambulatory BMSBuilding: [facility] Repository 07/20/2017 [id number] Ambulatory BMSBuilding: [facility] Repository 07/19/2017 [id number] Ambulatory [facility] ding:PSN Repository 07/15/2017 [id number] Ambulatory BMSBuilding: [facility] Repository 07/12/2017 [id number] Ambulatory [facility] ding:INT LAB Repository 07/08/2017/07/09/19 [id number] Ambulatory BMSBuilding: [address] Repository 07/08/2017/07/09/19 [id number] Ambulatory BMSBuilding: [address] Repository 07/07/2017/07/09/19 [id number] [place], Ambulatory [address] ding:PCURoom Repository : [id number]: 1 07/07/2017 [id number] [place], Ambulatory BMSBuilding: [place] Castillo BMS.[facility] Repository 07/07/2017 [id number] [place], Ambulatory [facility]: [place] [facility] 07/06/2017 [id number] ONEAL Ambulatory [facility] Other [place] Repository 07/02/2017/07/03/19 [id number] Ambulatory BMSBuilding: [place] 18 BMS.[facility] Repository 06/30/2017/07/06/19 [id number] Ambulatory [address] ding:WC Repository 06/30/2017 [id number] Ambulatory BMSBuilding: [facility] Repository 06/30/2017/07/01/19 [id number] Ambulatory BMSBuilding: [place] 18 BMS.[facility] Repository 06/29/2017/06/30/19 [id number] Emergency [address] ding:ED Repository 06/29/2017/06/30/19 [id number] Ambulatory BMSBuilding: [place] 18 BMS.[facility] Repository 06/24/2017 [id number] Ambulatory BMSBuilding: [facility] Repository 06/11/2017/06/12/19 [id number] Ambulatory BMSBuilding: [place] 18 BMS.[facility] Repository 06/08/2017/06/09/19 [id number] Ambulatory BMSBuilding: [place] 18 BMS.[facility] Repository 06/03/2017 [id number] Ambulatory BMSBuilding: [facility] Repository 06/02/2017/06/03/19 [id number] Emergency [address] ding:ED Repository 06/02/2017 [id number] Ambulatory [facility] ding:PSN Repository 05/31/2017/06/01/19 [id number] Ambulatory BMSBuilding: [place] 18 BMS.[facility] Repository 05/31/2017 [id number] Ambulatory [facility] Repository 05/27/2017/05/28/19 [id number] Emergency [address] ding:ED Repository 05/26/2017/06/06/19 [id number] Ambulatory [address] ding:WC Repository 05/26/2017 [id number] Ambulatory BMSBuilding: [facility] Repository 05/24/2017/05/25/19 [id number] Ambulatory [address] Repository 05/24/2017/05/25/19 [id number] Ambulatory [address] Repository 05/24/2017/05/25/19 [id number] Ambulatory [address] Repository 05/20/2017 [id number] Ambulatory BMSBuilding: [facility] Repository 05/16/2017 [id number] Ambulatory [facility] ding:DC Repository 05/13/2017 [id number] Ambulatory BMSBuilding: [facility] Repository 05/05/2017/05/05/19 [id number] Ambulatory BMSBuilding: [place] 18 [facility] Repository 05/05/2017/05/05/19 [id number] Ambulatory [address] ding:WC Repository 05/05/2017 [id number] Ambulatory BMSBuilding: [facility] Repository 05/04/2017 [id number] Ambulatory [facility] ding:CT Repository 04/28/2017 [id number] Ambulatory BMSBuilding: [facility] Repository 04/26/2017/04/26/19 [id number] Ambulatory [address] Repository 04/26/2017/04/26/19 [id number] Ambulatory [address] Repository 04/21/2017 [id number] Ambulatory [facility] ding:RAD Repository 04/21/2017 [id number] Ambulatory BMSBuilding: [facility] Repository 04/20/2017/04/20/19 [id number] Ambulatory [address] ding:[place] Repository 04/19/2017 [id number] Ambulatory [facility] ding:CT Repository 04/16/2017 [id number] [facility] 04/16/2017/04/16/19 [id number] [facility] 04/14/2017 [id number] Ambulatory BMSBuilding: [facility] Repository 04/09/2017/04/13/19 [id number] Ambulatory [place] 18 [facility] Repository 04/07/2017/04/07/19 [id number] Ambulatory [facility] ding:WC Repository 04/07/2017 [id number] Ambulatory BMSBuilding: [facility] Repository 04/06/2017/04/06/19 [id number] Ambulatory BMSBuilding: [place] 18 [facility] Repository 04/01/2017/04/07/19 [id number] Ambulatory [place] [facility] ding:DC Repository 03/31/2017 [id number] Ambulatory BMSBuilding: [facility] Repository 03/24/2017 [id number] Ambulatory BMSBuilding: [facility] Repository 03/23/2017 [id number] Ambulatory BMSBuilding: Anthony BMS.[facility] Repository 03/17/2017 [id number] Ambulatory [facility] ding:MRI Repository 03/17/2017 [id number] Ambulatory BMSBuilding: [facility] Repository 03/10/2017 [id number] Ambulatory [facility] ding:MTRAD Repository 03/10/2017/03/10/19 [id number] Ambulatory BMSBuilding: [place] 18 [facility] Repository 03/10/2017 [id number] Ambulatory BMSBuilding: [facility] Repository 03/04/2017/03/07/20 [id number] Ambulatory [facility] ding:WC Repository 02/23/2017/02/24/20 [id number] Ambulatory [place] [facility] ding:PT Repository 02/23/2017/02/24/20 [id number] Ambulatory BMSBuilding: [place] 17 [facility] Repository 02/23/2017 [id number] Ambulatory [facility] ding:MTLAB Repository 02/16/2017/02/17/20 [id number] Ambulatory BMSBuilding: [place] 17 [facility] Repository PAYERS PAYERS ENCOUNTER GUARANTOR PAYER SUBSCRIBER SOURCE 02/22/2018 AILYN L Primary AILYN L [place] [id number] E Insurance:CARESOURCEP [facility] Number: [id number] [id number] Repository 42288Ggj: (330) Date:2018-01-24 O [phone] () [address]ATTN: [place] [id number]: 02/22/2018 Secondary NOT GIVENUNK [place] Insurance:SELF PAY [facility] Number: Effective Repository Date:2018-02-22 02/18/2018 AILYN L Primary AILYN L Anthony [id number] E Insurance:CARESOURCEP [facility] Number: [id number] [id number] Repository 32886Awn: (330) Date:2018-01-13 O [phone] () [address]ATTN: [place] [id number]: 02/18/2018 Secondary NOT GIVENUNK Anthony Insurance:SELF PAY [facility] Number: Effective Repository Date:2018-02-18 02/15/2018 AILYN L Primary AILYN L Anthony [id number] E Insurance:CARESOURCEP HATFIELDDOB: [facility] Number: [id number] [id number] Repository 57652Vpa: (330) Date:2018-01-14 O [phone] () [address]ATTN: [place] [address]TM: 02/15/2018 Secondary NOT GIVENUNK Anthony Insurance:SELF PAY [facility] Number: Effective Repository Date:2018-02-05 02/14/2018 AILYN L Primary AILYN L Anthony [id number] E Insurance:CARESOURCEP [facility] Number: [id number] [id number] Repository 64835Wgc: (330) Date:2013-05-06P O [phone] (HP) [address]ATTN: [place] [address]US: 02/14/2018 Secondary NOT GIVENUNK [place] Insurance:SELF PAY [facility] Number: Effective Repository Date:2017-12-30 02/09/2018 AILYN L Primary AILYN L Anthony [id number] E Insurance:CARESOURCEP HATFIELDDOB: [facility] Number: [id number] [id number] Repository 67972Iuf: (330) Date:2018-02-09P O [phone] (HP) [address]ATTN: [place] [address]ZU: 02/09/2018 Secondary NOT GIVENUNK Anthony Insurance:SELF PAY [facility] Number: Effective Repository Date:2018-02-09 02/01/2018 AILYN L Primary AILYN L [place] [id number] E Insurance:CARESOURCEP HATFIELDDOB: [facility] Number: [id number] [id number] Repository 67072Dtv: (330) Date:2018-02-01P O [phone] (HP) [address]ATTN: [place] [address]RM: 02/01/2018 Secondary NOT GIVENUNK [place] Insurance:SELF PAY [facility] Number: Effective Repository Date:2018-02-01 02/01/2018 AILYN L Primary AILYN L Anthony [id number] E Insurance:CARESOURCEP HATFIELDDOB: [facility] Number: [id number] [id number] Repository 72559Bdv: (330) Date:2018-02-01P O [phone] (HP) [address]ATTN: [place] [address]LL: 02/01/2018 Secondary NOT GIVENUNK Anthony Insurance:SELF PAY [facility] Number: Effective Repository Date:2018-02-01 01/26/2018 AILYN L Primary AILYN L Atnhony [id number] E Insurance:CARESOURCEP HATFIELDDOB: [facility] Number: [id number] [id number] Repository 71987Zob: (330) Date:2018-01-14P O [phone] () [address]ATTN: [place] [address]JE: 01/26/2018 Secondary NOT GIVENUNK Anthony Insurance:SELF PAY [facility] Number: Effective Repository Date:2018-01-14 01/24/2018 AILYN L Primary AILYN L Anthony [id number] E Insurance:CARESOURCEP GREENEDOB: [facility] Number: [id number] [id number] Repository 55143Gce: (330) Date:2018-01-07P O [phone] () [address]ATTN: [place] [address]RM: 01/24/2018 Secondary NOT GIVENUNK [place] Insurance:SELF PAY [facility] Number: Effective Repository Date:2018-01-07 01/24/2018 AILYN L Primary AILYN L Anthony [id number] E Insurance:CARESOURCEP GREENEDOB: [facility] Number: [id number] [id number] Repository 15727Lgh: (330) Date:2017-12-20P O [phone] () [address]ATTN: [place] [address]WH: 01/24/2018 Secondary NOT GIVENUNK [place] Insurance:SELF PAY [facility] Number: Effective Repository Date:2018-01-24 01/12/2018 AILYN L Primary AILYN L [place] [id number] E Insurance:CARESOURCEP [facility] Number: [id number] [id number] Repository 59253Roe: (330) Date:2018-01-11 O [phone] (HP) [address]ATTN: [place] [address]NL: 01/12/2018 Secondary NOT GIVENUNK Anthony Insurance:SELF PAY [facility] Number: Effective Repository Date:2018-01-12 01/11/2018 AILYN L Primary AILYN L [place] [id number] E Insurance:CARESOURCEP GREENEDOB: [facility] Number: [id number] [id number] Repository 17787Tmp: (330) Date:2018-01-11 O [phone] () [address]ATTN: [place] [address]WN: 01/11/2018 Secondary NOT GIVENUNK Anthony Insurance:SELF PAY [facility] Number: Effective Repository Date:2018-01-11 01/11/2018 AILYN L Primary AILYN L [place] [id number] E Insurance:CARESOURCEP GREENEDOB: [facility] Number: [id number] [id number] Repository 78233Bhv: (330) Date:2018-01-11 O [phone] () [address]ATTN: [place] [address]UL: 01/11/2018 Secondary NOT GIVENUNK Anthony Insurance:SELF PAY [facility] Number: Effective Repository Date:2018-01-11 01/11/2018 AILYN L Primary AILYN L [place] [id number] E Insurance:CARESOURCEP [facility] Number: [id number] [id number] Repository 42207Osj: (330) Date:2018-01-11 O [phone] (HP) [address]ATTN: [place] [address]YY: 01/11/2018 Secondary NOT GIVENUNK [place] Insurance:SELF PAY [facility] Number: Effective Repository Date:2018-01-11 01/11/2018 AILYN L Primary AILYN L Anthony [id number] E Insurance:CARESOURCEP GREENEDOB: [facility] Number: [id number] [id number] Repository 69789Scs: (330) Date:2018-01-11 O [phone] (HP) [address]ATTN: [place] [address]MI: 01/11/2018 Secondary NOT GIVENUNK Anthony Insurance:SELF PAY [facility] Number: Effective Repository Date:2018-01-11 01/11/2018 AILYN L Primary AILYN L Anthony [id number] E Insurance:CARESOURCEP [facility] Number: [id number] [id number] Repository 99039Qec: (330) Date:2018-01-11 O [phone] (HP) [address]ATTN: [place] [address]CR: 01/11/2018 Secondary NOT GIVENUNK [place] Insurance:SELF PAY [facility] Number: Effective Repository Date:2018-01-11 01/11/2018 AILYN L Primary AILYN L Anthony [id number] E Insurance:CARESOURCEP GREENEDOB: [facility] Number: [id number] [id number] Repository 48459Can: (330) Date:2018-01-11 O [phone] (HP) [address]ATTN: [place] [address]WY: 01/11/2018 Secondary NOT GIVENUNK [place] Insurance:SELF PAY [facility] Number: Effective Repository Date:2018-01-11 01/05/2018 AILYN L Primary AILYN L [place] [id number] E Insurance:CARESOURCEP HATFIELDDOB: [facility] Number: [id number] [id number] Repository 76172Acb: (330) Date:2018-01-04P O [phone] () [address]ATTN: [place] [address]GG: 01/05/2018 Secondary NOT GIVENUNK [place] Insurance:SELF PAY [facility] Number: Effective Repository Date:2018-01-04 01/04/2018 AILYN L Primary AILYN L Anthony [id number] E Insurance:CARESOURCEP GREENEDOB: [facility] Number: [id number] [id number] Repository 51887Vkj: (330) Date:2017-10-04P O [phone] () [address]ATTN: [place] [address]AX: 01/04/2018 Secondary NOT GIVENUNK [place] Insurance:SELF PAY [facility] Number: Effective Repository Date:2017-12-27 01/04/2018 AILYN L Primary AILYN L [place] [id number] E Insurance:CARESOURCEP HATFIELDDOB: [facility] Number: [id number] [id number] Repository 94631Yqe: (330) Date:2018-01-04 O [phone] () [address]ATTN: [place] [address]IA: 01/04/2018 Secondary NOT GIVENUNK Anthony Insurance:SELF PAY [facility] Number: Effective Repository Date:2018-01-04 01/04/2018 AILYN L Primary AILYN L Anthony [id number] E Insurance:CARESOURCEP [facility] Number: [id number] [id number] Repository 81939Lrr: (330) Date:2018-01-03P O [phone] () [address]ATTN: [place] [address]XX: 01/04/2018 Secondary NOT GIVENUNK Anthony Insurance:SELF PAY [facility] Number: Effective Repository Date:2018-01-04 12/20/2017 AILYN L Primary AILYN L [place] [id number] E Insurance:CARESOURCEP HATFIELDDOB: [facility] Number: [id number] [id number] Repository 11972Hsw: (330) Date:2017-10-18P O [phone] () [address]ATTN: [place] [address]PO: 12/20/2017 Secondary NOT GIVENUNK [place] Insurance:SELF PAY [facility] Number: Effective Repository Date:2017-12-20 12/13/2017 AILYN L Primary AILYN L Anthony [id number] E Insurance:CARESOURCEP HATFIELDDOB: [facility] Number: [id number] [id number] Repository 36861Frc: (330) Date:2017-12-08P O [phone] () [address]ATTN: [place] [address]QR: 12/13/2017 Secondary NOT GIVENUNK [place] Insurance:SELF PAY [facility] Number: Effective Repository Date:2017-12-13 11/26/2017 AILYN L Primary AILYN L [place] [id number] E Insurance:CARESOURCEP HATFIELDDOB: [facility] Number: [id number] [id number] Repository 20762Zca: (330) Date:2017-11-19P O [phone] () [address]ATTN: [place] [address]OB: 11/26/2017 Secondary NOT GIVENUNK [place] Insurance:SELF PAY [facility] Number: Effective Repository Date:2017-11-19 11/19/2017 AILYN L Primary AILYN L Anthony [id number] E Insurance:CARESOURCEP GREENEDOB: [facility] Number: [id number] [id number] Repository 55107Xvu: (330) Date:2017-11-19P O [phone] () [address]ATTN: [place] [address]JR: 11/19/2017 Secondary NOT GIVENUNK [place] Insurance:SELF PAY [facility] Number: Effective Repository Date:2017-11-19 11/19/2017 AILYN L Primary AILYN L [place] [id number] E Insurance:CARESOURCEP GREENEDOB: [facility] Number: [id number] [id number] Repository 02754Ghn: (330) Date:2017-11-02P O [phone] () [address]ATTN: [place] [address]RP: 11/19/2017 Secondary NOT GIVENUNK [place] Insurance:SELF PAY [facility] Number: Effective Repository Date:2017-11-19 11/09/2017 AILYN L Primary AILYN L Anthony [id number] E Insurance:CARESOURCEP [facility] Number: [id number] [id number] Repository 65722Day: (330) Date:2017-10-20P O [phone] () [address]ATTN: [place] [address]RL: 11/09/2017 Secondary NOT GIVENUNK Anthony Insurance:SELF PAY [facility] Number: Effective Repository Date:2017-10-20 11/02/2017 AILYN L Primary AILYN L Anthony [id number] E Insurance:CARESOURCEP GREENEDOB: [facility] Number: [id number] [id number] Repository 14560Jvu: (330) Date:2017-10-22P O [phone] (HP) [address]ATTN: [place] [address]LL: 11/02/2017 Secondary NOT GIVENUNK Anthony Insurance:SELF PAY [facility] Number: Effective Repository Date:2017-10-22 10/21/2017 AILYN L Primary AILYN L Anthony [id number] E Insurance:CARESOURCEP HATFIELDDOB: [facility] Number: [id number] [id number] Repository 14519Cap: (330) Date:2017-10-20P O [phone] (HP) [address]ATTN: [place] [address]FH: 10/21/2017 Secondary NOT GIVENUNK [place] Insurance:SELF PAY [facility] Number: Effective Repository Date:2017-10-20 10/19/2017 AILYN L Primary AILYN L Anthony [id number] E Insurance:CARESOURCEP GREENEDOB: [facility] Number: [id number] [id number] Repository 99732Bpv: (330) Date:2017-10-19P O [phone] (HP) [address]ATTN: [place] [address]SE: 10/19/2017 Secondary NOT GIVENUNK [place] Insurance:SELF PAY [facility] Number: Effective Repository Date:2017-10-19 10/18/2017 AILYN L Primary AILYN L Anthony [id number] E Insurance:CARESOURCEP GREENEDOB: [facility] Number: [id number] [id number] Repository 50195Jst: (330) Date:2017-09-16 O [phone] (HP) [address]ATTN: [place] [address]UJ: 10/18/2017 Secondary NOT GIVENUNK [place] Insurance:SELF PAY [facility] Number: Effective Repository Date:2017-10-18 10/04/2017 AILYN L Primary AILYN L Anthony [id number] E Insurance:CARESOURCEP HATFIELDDOB: [facility] Number: [id number] [id number] Repository 31395Ibp: (330) Date:2017-06-30P O [phone] () [address]ATTN: [place] [address]VG: 10/04/2017 Secondary NOT GIVENUNK [place] Insurance:SELF PAY [facility] Number: Effective Repository Date:2017-09-27 10/01/2017 AILYN L Primary AILYN L [place] [id number] E Insurance:CARESOURCEP [facility] Number: [id number] [id number] Repository 08403Wqx: (330) Date:2017-07-02P O [phone] () [address]ATTN: [place] [address]TM: 10/01/2017 Secondary NOT GIVENUNK [place] Insurance:SELF PAY [facility] Number: Effective Repository Date:2017-07-02 09/16/2017 AILYN L Primary AILYN L Anthony [id number] E Insurance:CARESOURCEP GREENEDOB: [facility] Number: [id number] [id number] Repository 35398Jqj: (330) Date:2017-09-13P O [phone] () [address]ATTN: [place] [address]ZO: 09/16/2017 Secondary NOT GIVENUNK Anthony Insurance:SELF PAY [facility] Number: Effective Repository Date:2017-09-16 09/12/2017 AILYN L Primary AILYN L [place] [id number] Insurance:CARESOURCEP GREENEDOB: [facility] Number: [id number] [place], [place] [id number] Repository 18668Rcc: (330) Date:2017-09-12P O [phone] () [address]ATTN: [place] [address]WF: 09/12/2017 Secondary NOT GIVENUNK Anthony Insurance:SELF PAY [facility] Number: Effective Repository Date:2017-09-12 09/06/2017 AILYN L Primary AILYN L [place] [id number] Insurance:CARESOURCEP [facility]AT[facility]DDOB[facility] Number: [id number] [place], [place] [id number] Repository 41591Tqz: (330) Date:2017-09-06P O [phone] () [address]ATTN: [place] [address]AT: 09/06/2017 Secondary NOT GIVENUNK Anthony Insurance:SELF PAY [facility] Number: Effective Repository Date:2017-09-06 09/06/2017 AILYN L Primary AILYN L [place] [id number] Insurance:CARESOURCEP HATFIELDDOB: [facility] [address] [facility] Number: [id number] [place] [id number] Repository 20442Lxo: (330) Date:2017-09-06P O [phone] () [address]ATTN: [place] [address]EB: 09/06/2017 Secondary NOT GIVENUNK [place] Insurance:SELF PAY [facility] Number: Effective Repository Date:2017-09-06 09/06/2017 AILYN L Primary AILYN L [place] [id number] Insurance:CARESOURCEP HATFIELDDOB: [facility] Number: [id number] [place], [place] [id number] Repository 30033Xil: (330) Date:2017-09-06P O [phone] () [address]ATTN: [place] [address]QU: 09/06/2017 Secondary NOT GIVENUNK Anthony Insurance:SELF PAY [facility] Number: Effective Repository Date:2017-09-06 09/06/2017 AILYN L Primary AILYN L Anthony [id number] Insurance:CARESOURCEP HATFIELDDOB: [facility] Number: [id number] [place], [place] [id number] Repository 69470Diz: (330) Date:2017-09-06P O [phone] () [address]ATTN: [place] [address]LE: 09/06/2017 Secondary NOT GIVENUNK Anthony Insurance:SELF PAY [facility] Number: Effective Repository Date:2017-09-06 09/02/2017 AILYN L Primary AILYN L Anthony [id number] Insurance:CARESOURCEP HATFIELDDOB: [facility] Number: [id number] [place], [place] [id number] Repository 31075Efx: (330) Date:2017-08-27P O [phone] () [address]ATTN: [place] [address]SE: 09/02/2017 Secondary NOT GIVENUNK [place] Insurance:SELF PAY [facility] Number: Effective Repository Date:2017-09-02 08/16/2017 AILYN L Primary AILYN L [place] [id number] E Insurance:CARESOURCEP HATFIELDDOB: [facility] Number: [id number] [id number] Repository 51350Xub: (330) Date:2017-02-23P O [phone] () [address]ATTN: [place] [address]EB: 08/16/2017 Secondary NOT GIVENUNK Anthony Insurance:SELF PAY [facility] Number: Effective Repository Date:2017-08-06 08/05/2017 AILYN L Primary AILYN L Anthony [id number] E Insurance:CARESOURCEP HATFIELDDOB: [facility] Number: [id number] [id number] Repository 54759Kky: (330) Date:2017-07-15P O [phone] () [address]ATTN: [place] [address]CA: 08/05/2017 Secondary NOT GIVENUNK Anthony Insurance:SELF PAY [facility] Number: Effective Repository Date:2017-07-15 08/04/2017 AILYN L Primary AILYN L [place] [id number] E Insurance:CARESOURCEP HATFIELDDOB: [facility] Number: [id number] [id number] Repository 32735Wzs: (330) Date:2017-02-23 O [phone] () [address]ATTN: [place] [address]GU: 08/04/2017 Secondary NOT GIVENUNK Anthony Insurance:SELF PAY [facility] Number: Effective Repository Date:2017-07-06 08/04/2017 AILYN L Primary AILYN L [place] [id number] Insurance:CARESOURCEP HATFIELDDOB: [facility] Number: [id number] [place], [place] [id number] Repository 13229Vuk: (330) Date:2017-02-23 O [phone] () [address]ATTN: [place] [address]SK: 08/04/2017 Secondary NOT GIVENUNK [place] Insurance:SELF PAY [facility] Number: Effective Repository Date:2017-08-04 08/04/2017 AILYN L Primary AILYN L Anthony [id number] Insurance:CARESOURCEP HATFIELDDOB: [facility] Number: [id number] [place], [place] [id number] Repository 68425Iip: (330) Date:2017-02-23 O [phone] (HP) [address]ATTN: [place] [address]MC: 08/04/2017 Secondary NOT GIVENUNK Anthony Insurance:SELF PAY [facility] Number: Effective Repository Date:2017-08-04 07/28/2017 AILYN L Primary AILYN L Anthony [id number] E Insurance:CARESOURCEP HATFIELDDOB: [facility] Number: [id number] [id number] Repository 21450Gkw: (330) Date:2017-02-23 O [phone] () [address]ATTN: [place] [address]FY: 07/28/2017 Secondary NOT GIVENUNK [place] Insurance:SELF PAY [facility] Number: Effective Repository Date:2017-07-28 07/28/2017 AILYN L Primary AILYN L [place] [id number] Insurance:CARESOURCEP HATFIELDDOB: [facility] Number: [id number] [place], [place] [id number] Repository 56408Gab: (330) Date:2017-02-23 O [phone] () [address]ATTN: [place] [address]QL: 07/28/2017 Secondary NOT GIVENUNK [place] Insurance:SELF PAY [facility] Number: Effective Repository Date:2017-07-28 07/26/2017 AILYN L Primary AILYN L Anthony [id number] E Insurance:CARESOURCEP HATFIELDDOB: [facility] Number: [id number] [id number] Repository 45870Nmf: (330) Date:2017-07-14 O [phone] (HP) [address]ATTN: [place] [address]ZW: 07/26/2017 Secondary NOT GIVENUNK [place] Insurance:SELF PAY [facility] Number: Effective Repository Date:2017-07-26 07/21/2017 AILYN L Primary AILYN L [place] [id number] E Insurance:CARESOURCEP [facility]CAR[facility] Number: [id number] [id number] Repository 45276Bqf: (330) Date:2017-02-23P O [phone] () [address]ATTN: [place] [address]TW: 07/21/2017 Secondary NOT GIVENUNK [place] Insurance:SELF PAY [facility] Number: Effective Repository Date:2017-07-21 07/20/2017 AILYN L Primary AILYN L Anthony [id number] E Insurance:CARESOURCEP [facility] Number: [id number] [id number] Repository 54855Url: (330) Date:2017-06-30P O [phone] () [address]ATTN: [place] [address]IK: 07/20/2017 Secondary NOT GIVENUNK Anthony Insurance:SELF PAY [facility] Number: Effective Repository Date:2017-07-20 07/19/2017 AILYN L Primary AILYN L [place] [id number] E Insurance:CARESOURCEP GREENEDOB: [facility] [place]: [id number] [id number] Repository [id number]: ([phone]) Date:2017-06-30P O [phone] () [address]ATTN: [place] [id number]: 07/19/2017 Secondary NOT GIVENUNK Anthony Insurance:SELF PAY [facility] Number: Effective Repository Date:2017-06-30 07/15/2017 AILYN L Primary AILYN L Anthony [id number] E Insurance:CARESOURCEP [facility] [place]: [id number] [id number] Repository 46620Hkb: (330) Date:2017-02-23P O [phone] () [address]ATTN: [place] [address]DR: 07/15/2017 Secondary NOT GIVENUNK [place]agland Insurance:SELF PAY [facility] Number: Effective Repository Date:2017-07-15 07/12/2017 AILYN L Primary AILYN L Anthony [id number] E Insurance:CARESOURCEP [facility] [place]: [id number] [id number] Repository 23829Baw: (330) Date:2017-07-12P O [phone] () [address]ATTN: [place] [address]FG: 07/12/2017 Secondary NOT GIVENUNK Anthony Insurance:SELF PAY [facility] Number: Effective Repository Date:2017-07-12 07/08/2017 AILYN L Primary AILYN L [place] [id number] E Insurance:CARESOURCEP GREENEDOB: [facility] Number: [id number] [id number] Repository 70130Vpg: (330) Date:2017-07-07 O [phone] () [address]ATTN: [place] [address]NI: 07/08/2017 Secondary NOT GIVENUNK Anthony Insurance:SELF PAY [facility] Number: Effective Repository Date:2017-07-08 07/08/2017 AILYN L Primary AILYN L [place] [id number] Insurance:CARESOURCEP HATFIELDDOB: [facility] Number: [id number] [place] [id number] Repository 15367Lzw: (330) Date:2017-07-07P O [phone] () [address]ATTN: [facility] [place] [address]LP: 07/08/2017 Secondary NOT GIVENUNK Anthony Insurance:SELF PAY [facility] Number: Effective Repository Date:2017-07-08 07/07/2017 AILYN L Primary AILYN L Anthony [id number] E Insurance:CARESOURCEP GREENEDOB: [facility] Number: [id number] [id number] Repository 10263Nwt: (330) Date:2017-07-07P O [phone] (HP) [address]ATTN: [place] [address]PI: 07/07/2017 Secondary NOT GIVENUNK [place] Insurance:SELF PAY [facility] Number: Effective Repository Date:2017-07-07 07/07/2017 AILYN L Primary AILYN L [place] [id number] E Insurance:CARESOURCEP [facility] [place]: [id number] [id number] Repository 39702Awm: (330) Date:2017-07-07P O [phone] (HP) [address]ATTN: [place] [address]ML: 07/07/2017 Secondary NOT GIVENUNK [place] Insurance:SELF PAY [facility] Number: Effective Repository Date:2017-07-07 07/07/2017 AILYN L Primary AILYN L [place] [id number] E Insurance:CARESOURCEP GREENEDOB: [facility] Number: [id number] [id number] Repository 13733Dgk: (330) Date:2017-07-07P O [phone] (HP) [address]ATTN: [place] [address]IO: 07/07/2017 Secondary NOT GIVENUNK [place] Insurance:SELF PAY [facility] Number: Effective Repository Date:2017-07-07 07/02/2017 AILYN L Primary AILYN L [place] [id number] E Insurance:CARESOURCEP GREENEDOB: [facility] Number: [id number] [id number] Repository 45786Rvp: (330) Date:2017-05-05P O [phone] () [address]ATTN: [place] [address]HF: 07/02/2017 Secondary NOT GIVENUNK Anthony Insurance:SELF PAY [facility] Number: Effective Repository Date:2017-07-02 06/30/2017 AILYN L Primary AILYN L [place] [id number] E Insurance:CARESOURCEP GREENEDOB: [facility] Number: [id number] [id number] Repository 10694Odr: (330) Date:2017-02-23P O [phone] () [address]ATTN: [place] [address]CI: 06/30/2017 Secondary NOT GIVENUNK Anthony Insurance:SELF PAY [facility] Number: Effective Repository Date:2017-06-06 06/30/2017 AILYN L Primary AILYN L Anthony [id number] E Insurance:CARESOURCEP HATFIELDDOB: [facility] Number: [id number] [id number] Repository 06978Pit: (330) Date:2017-02-23 O [phone] () [address]ATTN: [place] [address]QV: 06/30/2017 Secondary NOT GIVENUNK Anthony Insurance:SELF PAY [facility] Number: Effective Repository Date:2017-06-30 06/30/2017 AILYN L Primary AILYN L Anthony [id number] E Insurance:CARESOURCEP GREENEDOB: [facility] Number: [id number] [id number] Repository 33827Gpo: (330) Date:2017-05-04P O [phone] () [address]ATTN: [place] [address]IQ: 06/30/2017 Secondary NOT GIVENUNK Anthony Insurance:SELF PAY [facility] Number: Effective Repository Date:2017-06-23 06/29/2017 AILYN L Primary AILYN L Anthony [id number] E Insurance:CARESOURCEP GREENEDOB: [facility] Number: [id number] [id number] Repository 11257Wma: (330) Date:2017-06-29P O [phone] () [address]ATTN: [place] [address]HS: 06/29/2017 Secondary NOT GIVENUNK Anthony Insurance:SELF PAY [facility] Number: Effective Repository Date:2017-06-29 06/29/2017 AILYN L Primary AILYN L [place] [id number] E Insurance:CARESOURCEP GREENEDOB: [facility] Number: [id number] [id number] Repository 17063Jqz: (330) Date:2017-05-31P O [phone] () [address]ATTN: [place] [address]JT: 06/29/2017 Secondary NOT GIVENUNK [place] Insurance:SELF PAY [facility] Number: Effective Repository Date:2017-06-29 06/24/2017 AILYN L Primary AILYN L Anthony [id number] E Insurance:CARESOURCEP GREENEDOB: [facility] Number: [id number] [id number] Repository 52556Pjx: (330) Date:2017-02-23P O [phone] () [address]ATTN: [place] [address]UG: 06/24/2017 Secondary NOT GIVENUNK [place] Insurance:SELF PAY [facility] Number: Effective Repository Date:2017-06-24 06/11/2017 AILYN L Primary AILYN L [place] [id number] E Insurance:CARESOURCEP GREENEDOB: [facility] Number: [id number] [id number] Repository 88198Akm: (330) Date:2017-06-09P O [phone] () [address]ATTN: [place] [address]NM: 06/11/2017 Secondary NOT GIVENUNK [place] Insurance:SELF PAY [facility] Number: Effective Repository Date:2017-06-11 06/08/2017 AILYN L Primary AILYN L [place] [id number] E Insurance:CARESOURCEP GREENEDOB: [facility] Number: [id number] [id number] Repository 54353Pkl: (330) Date:2017-06-07P O [phone] () [address]ATTN: [place] [address]SG: 06/08/2017 Secondary NOT GIVENUNK [place] Insurance:SELF PAY [facility] Number: Effective Repository Date:2017-06-08 06/03/2017 AILYN L Primary AILYN L [place] [id number] E Insurance:CARESOURCEP [facility] Number: [id number] [id number] Repository 40307Ese: (330) Date:2017-05-05P O [phone] () [address]ATTN: [place] [address]GC: 06/03/2017 Secondary NOT GIVENUNK Anthony Insurance:SELF PAY [facility] Number: Effective Repository Date:2017-06-03 06/02/2017 AILYN L Primary AILYN L Anthony [id number] E Insurance:CARESOURCEP [facility] Number: [id number] [id number] Repository 75331Bje: (330) Date:2017-06-02P O [phone] (HP) [address]ATTN: [place] [address]RL: 06/02/2017 Secondary NOT GIVENUNK Anthony Insurance:SELF PAY [facility] Number: Effective Repository Date:2017-06-02 06/02/2017 AILYN L Primary AILYN L [place] [id number] E Insurance:CARESOURCEP HATFIELDDOB: [facility] Number: [id number] [id number] Repository 90911Ouk: (330) Date:2017-05-05P O [phone] () [address]ATTN: [place] [address]QT: 06/02/2017 Secondary NOT GIVENUNK Anthony Insurance:SELF PAY [facility] Number: Effective Repository Date:2017-05-05 05/31/2017 AILYN L Primary AILYN L [place] [id number] E Insurance:CARESOURCEP GREENEDOB: [facility] Number: [id number] [id number] Repository 28284Ytv: (330) Date:2017-05-17 O [phone] () [address]ATTN: [place] [address]EC: 05/31/2017 Secondary NOT GIVENUNK Anthony Insurance:SELF PAY [facility] Number: Effective Repository Date:2017-05-31 05/27/2017 AILYN L Primary AILYN L Anthony [id number] E Insurance:CARESOURCEP GREENEDOB: [facility] Number: [id number] [id number] Repository 72337Zmq: (330) Date:2017-05-27P O [phone] (HP) [address]ATTN: [place] [address]JA: 05/27/2017 Secondary NOT GIVENUNK Anthony Insurance:SELF PAY [facility] Number: Effective Repository Date:2017-05-27 05/26/2017 AILYN L Primary AILYN L Anthony [id number] E Insurance:CARESOURCEP HATFIELDDOB: [facility] Number: [id number] [id number] Repository 31190Tgr: (330) Date:2017-02-23 O [phone] () [address]ATTN: [place] [address]FT: 05/26/2017 Secondary NOT GIVENUNK Anthony Insurance:SELF PAY [facility] Number: Effective Repository Date:2017-05-06 05/26/2017 AILYN L Primary AILYN L Anthony [id number] E Insurance:CARESOURCEP GREENEDOB: [facility] Number: [id number] [id number] Repository 89083Lpz: (330) Date:2017-02-23 O [phone] () [address]ATTN: [place] [address]CZ: 05/26/2017 Secondary NOT GIVENUNK [place] Insurance:SELF PAY [facility] Number: Effective Repository Date:2017-05-26 05/20/2017 AILYN L Primary AILYN L [place] [id number] E Insurance:CARESOURCEP GREENEDOB: [facility] Number: [id number] [id number] Repository 73716Dtj: (330) Date:2017-02-23 O [phone] () [address]ATTN: [place] [address]YO: 05/20/2017 Secondary NOT GIVENUNK [place] Insurance:SELF PAY [facility] Number: Effective Repository Date:2017-05-20 05/16/2017 AILYN L Primary AILYN L [place] [id number] E Insurance:CARESOURCEP [facility] [place]: [id number] [id number] Repository 80790Pmp: (330) Date:2017-03-05P O [phone] () [address]ATTN: [place] [address]QJ: 05/16/2017 Secondary NOT GIVENUNK Anthony Insurance:SELF PAY [facility] Number: Effective Repository Date:2017-05-06 05/13/2017 AILYN L Primary AILYN L Anthony [id number] E Insurance:CARESOURCEP GREENEDOB: [facility] Number: [id number] [id number] Repository 06947Pcq: (330) Date:2017-02-23P O [phone] () [address]ATTN: [place] [address]VV: 05/13/2017 Secondary NOT GIVENUNK Anthony Insurance:SELF PAY [facility] Number: Effective Repository Date:2017-05-13 05/05/2017 AILYN L Primary AILYN L Anthony [id number] E Insurance:CARESOURCEP GREENEDOB: [facility] Number: [id number] [id number] Repository 41638Blv: (330) Date:2017-02-06P O [phone] () [address]ATTN: [place] [address]KG: 05/05/2017 Secondary NOT GIVENUNK [place] Insurance:SELF PAY [facility] Number: Effective Repository Date:2017-02-06 05/05/2017 AILYN L Primary AILYN L Anthony [id number] E Insurance:CARESOURCEP [facility] Number: [id number] [id number] Repository 90470Fhr: (330) Date:2017-02-23P O [phone] () [address]ATTN: [place] [address]JW: 05/05/2017 Secondary NOT GIVENUNK Anthony Insurance:SELF PAY [facility] Number: Effective Repository Date:2017-04-08 05/05/2017 AILYN L Primary AILYN L Anthony [id number] E Insurance:CARESOURCEP GREENEDOB: [facility] Number: [id number] [id number] Repository 57501Ojd: (330) Date:2017-02-23 O [phone] (HP) [address]ATTN: [place] [address]IP: 05/05/2017 Secondary NOT GIVENUNK [place] Insurance:SELF PAY [facility] Number: Effective Repository Date:2017-05-05 05/04/2017 AILYN L Primary AILYN L Anthony [id number] E Insurance:CARESOURCEP GREENEDOB: [facility] Number: [id number] [id number] Repository 39186Kay: (330) Date:2017-04-26 O [phone] (HP) [address]ATTN: [place] [address]NB: 05/04/2017 Secondary NOT GIVENUNK Anthony Insurance:SELF PAY [facility] Number: Effective Repository Date:2017-04-26 04/28/2017 AILYN L Primary AILYN L [place] [id number] E Insurance:CARESOURCEP GREENEDOB: [facility] Number: [id number] [id number] Repository 35665Rnk: (330) Date:2017-02-23 O [phone] (HP) [address]ATTN: [place] [address]EO: 04/28/2017 Secondary NOT GIVENUNK Anthony Insurance:SELF PAY [facility] Number: Effective Repository Date:2017-04-28 04/21/2017 AILYN L Primary AILYN L [place] [id number] E Insurance:CARESOURCEP GREENEDOB: [facility] Number: [id number] [id number] Repository 30471Iib: (330) Date:2017-04-16 O [phone] () [address]ATTN: [place] [address]PV: 04/21/2017 Secondary NOT GIVENUNK [place] Insurance:SELF PAY [facility] Number: Effective Repository Date:2017-04-16 04/21/2017 AILYN L Primary AILYN L Anthony [id number] E Insurance:CARESOURCEP GREENEDOB: [facility] Number: [id number] [id number] Repository 68567Egd: (330) Date:2017-02-23 O [phone] () [address]ATTN: [place] [address]YM: 04/21/2017 Secondary NOT GIVENUNK [place] Insurance:SELF PAY [facility] Number: Effective Repository Date:2017-04-21 04/20/2017 AILYN L Primary AILYN L Atnhony [id number] E Insurance:CARESOURCEP HATFIELDDOB: [facility] Number: [id number] [id number] Repository 55014Ppg: (330) Date:2017-03-05 O [phone] () [address]ATTN: [place] [address]EM: 04/20/2017 Secondary NOT GIVENUNK [place] Insurance:SELF PAY [facility] Number: Effective Repository Date:2017-04-08 04/19/2017 AILYN L Primary AILYN L [place] [id number] E Insurance:CARESOURCEP [facility] Number: [id number] [id number] Repository 30828Qrp: (330) Date:2017-04-16 O [phone] () [address]ATTN: [place] [address]NU: 04/19/2017 Secondary NOT GIVENUNK [place] Insurance:SELF PAY [facility] Number: Effective Repository Date:2017-04-16 04/16/2017 AILYN L Primary AILYN L [place] [id number] E Insurance:CARESOURCEP HATFIELDDOB: [facility] Number: [id number] [id number] Repository 01824Ojj: (330) Date:2017-04-12 O [phone] () [address]ATTN: [place] [address]IG: 04/16/2017 Secondary NOT GIVENUNK Anthony Insurance:SELF PAY [facility] Number: Effective Repository Date:2017-04-12 04/16/2017 AILYN L Primary AILYN L [place] [id number] E Insurance:CARESOURCEP HATFIELDDOB: [facility] Number: [id number] [id number] Repository 92392Qvn: (330) Date:2017-04-12 O [phone] () [address]ATTN: [place] [address]OM: 04/16/2017 Secondary NOT GIVENUNK Anthony Insurance:SELF PAY [facility] Number: Effective Repository Date:2017-04-12 04/14/2017 AILYN L Primary AILYN L [place] [id number] E Insurance:CARESOURCEP GREENEDOB: [facility] Number: [id number] [id number] Repository 95008Dij: (330) Date:2017-02-23 O [phone] () [address]ATTN: [place] [address]IY: 04/14/2017 Secondary NOT GIVENUNK Anthony Insurance:SELF PAY [facility] Number: Effective Repository Date:2017-04-14 04/07/2017 AILYN L Primary AILYN L [place] [id number] E Insurance:CARESOURCEP GREENEDOB: [facility] Number: [id number] [id number] Repository 86303Deo: (330) Date:2017-02-23 O [phone] () [address]ATTN: [place] [address]RF: 04/07/2017 Secondary NOT GIVENUNK Anthony Insurance:SELF PAY [facility] Number: Effective Repository Date:2017-03-08 04/07/2017 AILYN L Primary AILYN L [place] [id number] E Insurance:CARESOURCEP GREENEDOB: [facility] Number: [id number] [id number] Repository 35152Ptd: (330) Date:2017-02-23 O [phone] () [address]ATTN: [place] [address]CW: 04/07/2017 Secondary NOT GIVENUNK [place] Insurance:SELF PAY [facility] Number: Effective Repository Date:2017-04-07 04/06/2017 AILYN L Primary AILYN L Anthony [id number] E Insurance:CARESOURCEP [facility] Number: [id number] [id number] Repository 98425Pin: (330) Date:2017-02-09 O [phone] () [address]ATTN: [place] [address]PA: 04/06/2017 Secondary NOT GIVENUNK Anthony Insurance:SELF PAY [facility] Number: Effective Repository Date:2017-02-09 04/01/2017 AILYN L Primary AILYN L Anthony [id number] E Insurance:CARESOURCEP GREENEDOB: [facility] Number: [id number] [id number] Repository 99225Mmj: (330) Date:2017-03-05P O [phone] (HP) [address]ATTN: [place] [address]EB: 04/01/2017 Secondary NOT GIVENUNK Anthony Insurance:SELF PAY [facility] Number: Effective Repository Date:2017-03-05 03/31/2017 AILYN L Primary AILYN L [place] [id number] E Insurance:CARESOURCEP HATFIELDDOB: [facility] Number: [id number] [id number] Repository 93294Mix: (330) Date:2017-02-23P O [phone] () [address]ATTN: [place] [address]SV: 03/31/2017 Secondary NOT GIVENUNK Anthony Insurance:SELF PAY [facility] Number: Effective Repository Date:2017-03-31 03/24/2017 AILYN L Primary AILYN L Anthony [id number] E Insurance:CARESOURCEP [facility]ENTERFIELDDOB: [facility] Number: [id number] [id number] Repository 77240Uno: (330) Date:2017-02-23 O [phone] () [address]ATTN: [place] [address]KA: 03/24/2017 Secondary NOT GIVENUNK Anthony Insurance:SELF PAY [facility] Number: Effective Repository Date:2017-03-24 03/23/2017 AILYN L Primary AILYN L [place] [id number] E Insurance:CARESOURCEP [facility] Number: [id number] [id number] Repository 97614Cpg: (330) Date:2017-03-23P O [phone] () [address]ATTN: [place] [address]YG: 03/23/2017 Secondary NOT GIVENUNK [place] Insurance:SELF PAY [facility] Number: Effective Repository Date:2017-03-23 03/17/2017 AILYN L Primary AILYN L Anthony [id number] E Insurance:CARESOURCEP HATFIELDDOB: [facility] Number: [id number] [id number] Repository 21691Zpv: (330) Date:2017-03-15P O [phone] () [address]ATTN: [place] [address]PN: 03/17/2017 Secondary NOT GIVENUNK Anthony Insurance:SELF PAY [facility] Number: Effective Repository Date:2017-03-15 03/17/2017 AILYN L Primary AILYN L [place] [id number] E Insurance:CARESOURCEP [facility]ENTERFIELDDOB: [facility] Number: [id number] [id number] Repository 68464Xjx: (330) Date:2017-02-23P O [phone] () [address]ATTN: [place] [address]XF: 03/17/2017 Secondary NOT GIVENUNK Anthony Insurance:SELF PAY [facility] Number: Effective Repository Date:2017-03-17 03/10/2017 AILYN L Primary AILYN L [place] [id number] E Insurance:CARESOURCEP HATFIELDDOB: [facility] Number: [id number] [id number] Repository 32241Mao: (330) Date:2017-03-10P O [phone] () [address]ATTN: [place] [address]UC: 03/10/2017 Secondary NOT GIVENUNK [place] Insurance:SELF PAY [facility] Number: Effective Repository Date:2017-03-10 03/10/2017 AILYN L Primary AILYN L Anthony [id number] E Insurance:CARESOURCEP HATFIELDDOB: [facility] Number: [id number] [id number] Repository 88309Wvq: (330) Date:2017-03-10P O [phone] () [address]ATTN: [place] [address]HV: 03/10/2017 Secondary NOT GIVENUNK [place] Insurance:SELF PAY [facility] Number: Effective Repository Date:2017-03-10 03/10/2017 AILYN L Primary AILYN L Anthony [id number] E Insurance:CARESOURCEP GREENEDOB: [facility] Number: [id number] [id number] Repository 08109Hkf: (330) Date:2017-02-23P O [phone] () [address]ATTN: [place] [address]JL: 03/10/2017 Secondary NOT GIVENUNK Anthony Insurance:SELF PAY [facility] Number: Effective Repository Date:2017-03-10 03/04/2017 AILYN L Primary AILYN L [place] [id number] E Insurance:CARESOURCEP GREENEDOB: [facility] Number: [id number] [id number] Repository 73217Pao: (330) Date:2017-02-23P O [phone] () [address]ATTN: [place] [address]RY: 03/04/2017 Secondary NOT GIVENUNK Anthony Insurance:SELF PAY [facility] Number: Effective Repository Date:2017-02-23 02/23/2017 AILYN L Primary AILYN L Anthony [id number] E Insurance:CARESOURCEP GREENEDOB: [facility] Number: [id number] [id number] Repository 15624Bkw: (330) Date:2013-05-06P O [phone] () [address]ATTN: [place] [address]OY: 02/23/2017 Secondary NOT GIVENUNK [place] Insurance:SELF PAY [facility] Number: Effective Repository Date:2017-02-16 02/23/2017 AILYN L Primary AILYN L [place] [id number] E Insurance:CARESOURCEP HATFIELDDOB: [facility] Number: [id number] [id number] Repository 67870Eeg: (330) Date:2017-02-22P O [phone] () [address]ATTN: [place] [address]HJ: 02/23/2017 Secondary NOT GIVENUNK [place] Insurance:SELF PAY [facility] Number: Effective Repository Date:2017-02-22 02/23/2017 AILYN L Primary AILYN L [place] [id number] E Insurance:CARESOURCEP HATFIELDDOB: [facility] Number: [id number] [id number] Repository 06617Yyz: (330) Date:2017-02-23P O [phone] () [address]ATTN: [place] [address]KE: 02/23/2017 Secondary NOT GIVENUNK Anthony Insurance:SELF PAY [facility] Number: Effective Repository Date:2017-02-23 02/16/2017 AILYN L Primary AILYN L Anthony [id number] E Insurance:CARESOURCEP [place]ELDDOB[place] [facility] [place]: [id number] [id number] Repository [id number]: [phone]) Date:2017-02-06P O [phone] () [address]ATTN: [place] [id number]: 02/16/2017 Secondary NOT GIVENUNK [place] Insurance:SELF PAY [facility] Number: Effective Repository Date:2017-02-06
== END ==
PROVIDERS: Family Provider Internal Medicine; PCP Internal Medicine; Referring Provider Nurse Practitioner; Visit Provider Nurse Practitioner
DX: E11.9 Type 2 diabetes mellitus without complications (principal); K51.90 Ulcerative colitis, unspecified, without complications
CPT/HCPCS: 36415; 80053; 82150; 83690; 85025

== ENCOUNTER 2018-02-14 13:00 | Outpatient (RCR) | payer MEDICAID, SELFPAY ==
--- NOTE | 2017-12-31 11:44 | HP.PTEVAL ---
Patient's Visit Information ASHLEY MÉNDEZ is a 57 year old F referred to Physical Therapy by DERIC Banks with a diagnosis of LOW BACK PAIN. Date of Evaluation: 12/31/17 Physical Therapist: Merced Horvath - Visit Plan Frequency: 2-3x /Week Duration: 4-6 Weeks Plan: AQUATIC THERAPY FOR PAIN RELEIF, POSTURE CORRECTION/STRENGTHENING, INSTRUCTION IN APPROPRIATE BODY MECHANICS AND ACTIVITY MODIFICATIONS. DLS STARTING WITH A NEUTRAL SPINE PROGRESSING ROM TOLERATED. MARCEL LE ROM, STRETCHING AND STRENGTHENING. HEP INSTRUCTION. - Subjective Subjective: Work/Leisure: UNEMPLOYEED. Disability: YES - SINCE 2012 FOR HEART CONDITION. Present symptoms: LOW BACK PAIN. MARCEL LE PAIN, NUMBNESS AND TINGLING TO FEET RIGHT > LEFT. Present since: ON AND OFF FOR YEARS BUT HAS PROGRESSIVELY BECOME WORSE IN THE LAST 18 MONTHS. Pain Scale: WORST 9/10, LEAST 3/10. Currently: 6/10. Commenced as a result of: NO APPARENT REASON. Symptoms at onset: LOW BACK. Worse: WALKING, STANDING, PROLONGED SITTING, TRYING TO LIFT ANYTHING, DOING DISHES, VACUUMING. Better: PAIN PILLS, HEAT. Disturbed sleep: YES. Previous history/Previous treatment: NO BACK SURGERY. PAIN MGMT - ZACK'S ABOUT 4 A YEAR FOR ABOUT [address] CLINE WITH AQUATIC THERAPY RECOMMENDED ABOUT JUNE OF 2017 BUT UNABLE TO COMPLETE DUE TO OPEN WOUND. Coughing/sneezing/straining: POSITIVE. Gait: PATIENT REPORTS SHE WALKS WITH A LIMP ON THE RIGHT LEG SOMETIMES BECAUSE IT HURTS SO BAD. SHE ALSO REPORTS THAT HER HIPS AND LEGS SOMETIMES GIVE OUT ON HER AND SHE FALLS A LOT - WITH LAST FALL BEING ABOUT 3 WEEKS AGO WHEN SHE WAS JUST WALKING DOWN THE [address] AND HER RIGHT LEG JUST GAVE OUT AND SHE WENT DOWN. SOME LEFT WRIST PAIN THAT GOT BETTER AND INCREASED LBP FROM THE FALL. Difficulty initiating urinatin: SOMETIMES. Accidents: MULTIPLES FALLS. NO MVA'S. Unexplained weight loss: NO. Imaging: YES. PER DR. CLINE'S REPORT FEB 2017: 1. XR lumbar spine - diffuse spondylosis. 2. MRI lumbar spine CD 08/25/2016 diffuse spondylosis with capacious central canal. PMH: Medical History: Thyroid mass (Acute). Syncope (Chronic). Vertigo (Chronic). Chronic renal insufficiency (Chronic). Sleep apnea (Chronic). Menieres disease (Chronic). Ulcerative colitis (Chronic). CAD (coronary artery disease) (Chronic). Hyperlipidemia (Chronic). Benign essential HTN (Chronic). DM2 (diabetes mellitus, type 2) (Chronic). Hx of coronary artery disease (Chronic). Surgical History: History of coronary artery stent placement (Chronic ~2013). S/P CABG (coronary artery bypass graft) (Chronic ~2013). H/O colectomy (Acute). H/O sinus surgery (Acute). H/O total hysterectomy (Acute). gallbdder removal (Acute). history closed fissure (Acute). ileostomy (Acute). left thumb surgery (Acute). lysis of adhesion (Acute). vestibular nerve surgery for Meniere's (Acute). ABD abscess removal (Resolved). OTHER: PATIENT REPORTS DR. CILNE TOLD HER SHE WAS NOT A CANDIDATE FOR SURGERY AT THE TIME OF HER CONSULT BUT TO FOLLOW UP WITH HER NEEDED. PRIOR LEVEL OF FUNCTION: PATIENT REPORTS THAT ABOUT 18 MONTHS AGO BEFORE SHE STARTED GETTING SIGNIFICANTLY WORSE SHE WAS ABLE TO WALK PATHS IN THE [employer] FOR EX AND NOW SHE CANE BARELY GROCERY SHOP LEANING ON A CART. SHE REPORTS SHE WAS ABLE TO CLEAN HER HOUSE AND NOW IT ABOUT KILLS ME. SHE REPORTS SHE WAS ABLE TO SIT, WALK, STAND AND SLEEP BETTER ALLOWING HER TO GO AND PLAY CARDS AND DO PUZZLES WITH FRIENDS AND NOW SHE CAN'T. *NO PACEMAKER, METAL IN LOW BACK OR CANCER. SEE 02/23/17 PT EVAL FOR FURTHER HISTORY. PATIENT REPORTS SHE WAS UNABLE TO FOLLOW THROUGH WITH AQUATIC THERAPY AT THAT TIME DUE TO OPEN WOUND. - Objective Sitting/Standing Posture: POOR. SLOUCHED POSTURE WITH FORWARD HEAD AND ROUNDED SHOULDERS. Lordosis: REDUCED. Active Correction of posture: WORSE. Other Observations: INDEP GUARDED GAIT INTO PT WITHOUT ANY AD'S AND NO LOB. DECREASED CADANCE AND INCREASED TRUNK FLEXION. PATIENT IS ABLE TO HEEL AND TOE WALK BUT GREAT DIFFICULTY HEEL WALKING. Motor deficit: MARCEL LE STRENGTH 5/5 WITH MMT'ING EXCEPT HIPS GRADED 4-/5. Sensory deficit: NO. ROM deficit: TIGHT MARCEL HS'S AND GASTROC SOLEUS COMPLEX'S. Reflexes: 2/2 MARCEL LE'S. Dural Signs: POSITIVE MARCEL LE'S. Lumbar mvmt loss: flex - MOD. ext - SUMANTH. R SG - MOD. L SG - MOD. PATIENT C/O INCREASED PAIN IN LOW BACK WITH LUMBAR ROM TESTING ALL PLANES. Core strength: POOR. Palpation: PATIENT IS VERY TENDER WITH LIGHT PALPATION OF THE ENTIRE LUMBO SACRAL AREA TO THE TAILBONE. SHE IS ALSO TENDER OVER THE RIGHT ILIAC CREST REGION. - Goals Goal 1:: DECREASE C/O LOW BACK AND MARCEL LE SX'S Goal Time Frame: 4-6 Weeks Goal 2:: IMPROVE PERSONAL CARE, LIFTING, WALKING, SITTING, STANDING, SLEEP, SOCIAL LIFE, TRAVEL AND HOMEMAKING FUNCTION Goal Time Frame: 4-6 Weeks Goal 3:: INDEP HOME AND OR WATER EX PROGRAM - Rehabilitation Potential Rehabilitation Potential: Fair - Anticipated Interventions Patient/Client Instruction: Educate patient on: Condition, Plan of Care, Risk Factors, Benefits of Fitness Program For the Purpose of:: To improve self management Therapeutic Exercise to Include: Strength training, Body mechanics, Postural training, In an aquatic setting, Active ROM, Dynamic Lumbar Stabilization For the Purpose of:: To decrease pain, To increase ROM, To improve muscle performance and motor function, To increase tolerance to activity/condition/position, To improve ability of physical actions for home/community/work/leisure Thank you for the opportunity to evaluate your patient. For Medicare and Medicare HMO plans, please review the plan of care and approve it. It will need to be FAXED BACK to us at [phone] for Medicare purposes. Please let me know if there are questions or concerns regarding this plan of care. Physician Signature: Date:
--- NOTE | 2018-01-24 13:31 | HP.PTREVAL ---
Roberto Lynch, TRANSACTION PROCESSOR-C, It has been my pleasure to treat ASHLEY MÉNDEZ over the last 4 visits for LOW BACK PAIN. Please see the progress note below for an update on the physical therapy plan of care! Subjective: PATIENT REPORTS SHE HASN'T BEEN HERE BECAUSE THINGS GOT WACKY. PATIENT REPORTS SHE HAS NOT BEEN ABLE TO COME DUE TO ILLNESSS AND CHEST PAINS. SHE REPORTS SHE HAD A HEART EPISODE AND THEY ADMITTED HER TO THE HOSPITAL AND UNDERWENT CARDIAC CATH WITH ANOTHER STENT PLACEMENT. SHE NOW HAS 10 STENTS AND ALTHOUGH SHE STILL HAS BLOCKAGE THEY ARE NOT RECOMMENDING FURTHER SURGERY YET. SHE REPORTS HER PULP SCREEN OPERATOR DR. LUEVANO RELEASED HER TO COME BACK TO [facility]ER[facility] OF TODAY AND THAT IF SHE DOES AQUATIC THERAPY SHE WON'T HAVE TO DO CARDIAC REHAB. SHE REPORTS SHE WOULD MUCH RATHER DO AQUATIC THERAPY ALTHOUGH SHE WAS IN A LOT OF PAIN AFTER HER FIRST AQUATIC SESSION [facility] WITH US JANUARY 07 2018. PATIENT REPORTS SHE SAW HER FAMILY DOCTOR - DR. MADRIGAL AND SHE AGREED WITH RETURN TO AQUATIC THERAPY. PATIENT REPORTS HER HIP IS KILLER HER TODAY BUT SHE DIDN'T BRING HER CANE STATING SHE FORGOT IT. SHE STATES THAT THE WALKER HELPS MORE THAN THE CANE BUT SHE DOESN'T LIKE TO USE IT IN PUBLIC AND IT IS HARD TO GET IN AND OUT OF THE CAR. PATIENT REPORTS THAT THE PAIN AND PROBLEMS SHE ORIGINALLY CAME TO PT FOR ARE ABOUT THE SAME. Objective/Function: UPON EXAM THERE ARE NO SIGNIFICANT CHANGES WITH BACK AND LE TESTING COMPARED TO INITIAL EVAL. SHE IS STILL VERY TENDER IN HER LOW BACK AND RIGHT HIP. HER HIPS HAVE WEAKNESS AND HER CORE STRENGTH IS POOR. SHE HAS PAIN WITH LUMBAR ROM TESTING ALL PLANES AND SHE HAS MODERATE TO SUMANTH LUMBAR ROM MVMT LOSS ALL PLANES. Plan Plan: AQUATIC THERAPY FOR PAIN RELEIF, POSTURE CORRECTION/STRENGTHENING, INSTRUCTION IN APPROPRIATE BODY MECHANICS AND ACTIVITY MODIFICATIONS. DLS STARTING WITH A NEUTRAL SPINE PROGRESSING ROM TOLERATED. MARCEL LE ROM, STRETCHING AND STRENGTHENING. HEP INSTRUCTION. Goals Goal 1:: DECREASE C/O LOW BACK AND MARCEL LE SX'S Goal Time Frame: 4-6 Weeks Goal Progress: Not Progressing Goal 2:: IMPROVE PERSONAL CARE, LIFTING, WALKING, SITTING, STANDING, SLEEP, SOCIAL LIFE, TRAVEL AND HOMEMAKING FUNCTION Goal Time Frame: 4-6 Weeks Goal Progress: Not Progressing Goal 3:: INDEP HOME AND OR WATER EX PROGRAM Goal Time Frame: 4-6 Weeks Goal Progress: Not Progressing Anticipated Interventions Patient/Client Instruction: Educate patient on: Condition, Plan of Care, Risk Factors, Benefits of Fitness Program For the Purpose of:: To improve self management Therapeutic Exercise to Include: Strength training, Body mechanics, Postural training, In an aquatic setting, Active ROM, Dynamic Lumbar Stabilization For the Purpose of:: To decrease pain, To increase ROM, To improve muscle performance and motor function, To increase tolerance to activity/condition/position, To improve ability of physical actions for home/community/work/leisure Please do not hesitate to contact me at [phone] by phone or if you have questions or concerns regarding this new plan of care! Sincerely, Merced Horvath
--- NOTE | 2018-02-14 13:41 | HP.PTDCSUM ---
HP - PT D/C Summary It has been my pleasure to treat ASHLEY MÉNDEZ under orders from Naima Lynch, WORKERS COMPENSATION CLAIMS SPECIALIST-C, for the diagnosis of LOW BACK PAIN for a total of 9 visit(s). Discharge Date: Please see the following information for a summary of their discharge status. - Subjective Subjective: PATIENT REPORTS SHE HAS BEEN SICK DUE TO A NEW MEDICATION SHE STARTED FEB 02 2018. SHE REPORTS HER GASTROPARESIS IS STILL FLARED UP. FOLLOW WITH NAIMA LYNCH ON FEB 07 2018 AND THEY STOPPED THE MEDICINE. FOLLOW UP WITH DR. JOHN FEB 08 2018 AND PATIENT REPORTS HE TOLD HER TO STOP THE AQUATIC THERAPY. SHE REPORTS HE ALSO WANTED TO INCREASE HER PAIN MEDS AND SHE REFUSED. APPOINTMENTS PENDING WITH DR. LUEVANO WEDNESDAY AND DR. MADRIGAL. PATIENT REPORTS THE WATER FELT GOOD WHILE SHE WAS IN THERE BUT MORE PAIN AFTER. SHE REPORTS SHE DOES NOT WANT TO TRY ANY MORE PT EITHER. 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 - Pain MID LOW BACK Pain Intensity (Out of 10): 9 RIGHT HIP Pain Intensity (Out of 10): 8 RIGHT THIGH Pain Intensity (Out of 10): 8 LEFT HIP Pain Intensity (Out of 10): 8 - Objective Objective/Function: PATIENT HAS ONLY BEEN ABLE TO ATTEND 4 WATER SESSIONS SINCE 01/24/18. THERE ARE NO SIGNIFICANT CHANGES SINCE LAST RE-EVAL ON THAT DATE EXCEPT PATIENT IS REPORTING HIGHER PAIN LEVELS. SHE DID WALK IN WITH HER WALKER TODAY AND I ENCOURAGED CONTINUED USE OF THE WALKER FOR SAFETY. SHE IS WEARING HER TENS UNIT AND REPORTS SHE DOES GET SOME RELIEF USING IT. SHE REALLY JUST SEEMS TO BE IN A LOT OF PAIN AND TRANSFERS ARE MORE SLOW AND GUARDED THAN LAST VISIT. PATIENT IS REPORTING A RATHER HIGH ACTIVITY LEVEL CONSIDERING HOW MUCH PAIN SHE IS REPORTING. - Goals Goal 1:: DECREASE C/O LOW BACK AND MARCEL LE SX'S Goal Progress: Not Progressing Goal 2:: IMPROVE PERSONAL CARE, LIFTING, WALKING, SITTING, STANDING, SLEEP, SOCIAL LIFE, TRAVEL AND HOMEMAKING FUNCTION Goal Progress: Not Progressing Goal 3:: INDEP HOME AND OR WATER EX PROGRAM Goal Progress: Not Progressing - Plan Plan: D/C DUE TO LACK OF IMPROVEMENT, PATIENT NOT BEING ABLE TO CONSISTANTLY ATTEND APPOINTMENTS, HER STATING DR. JOHN TOLD HER TO STOP PT AND HER REQUEST FOR D/C. - D/C Information If there are questions or concerns regarding this patient's physical therapy, please feel free to call me at [phone]. Thank you for the referral of this patient. Sincerely, Merced Horvath
== END 2018-02-14 19:00 | disposition home or self-care (01) ==
LOC: PT 13:00
PROVIDERS: Family Provider Internal Medicine; PCP Internal Medicine; Referring Provider Nurse Practitioner Family; Visit Provider Nurse Practitioner Family
DX: M54.5 Low back pain (principal); G89.29 Other chronic pain
CPT/HCPCS: 97113; 97116; 97162; 97530

== ENCOUNTER → 2018-02-25 14:39 | Outpatient (CLI) | payer MEDICAID, SELFPAY ==
[2018-01-12 13:19] VITALS: BMI 30.9
[2018-02-18 14:12] VITALS: BMI 29.5
[2018-02-22 11:33] VITALS: BMI 29.5
--- NOTE | 2018-02-25 14:40 | CT_ITS ---
STUDY: CT CHEST WITHOUT CONTRAST REASON FOR EXAM: Female, 57 [address] follow-up RADIATION DOSAGE (If Supplied By Facility): CTDIvol = ( 17.15 ) mGy, DLP = ( 543.56 ) mGycm TECHNIQUE: Transaxial imaging was performed without the administration of intravenous contrast material. Individualized dose optimization techniques were used for this CT. COMPARISON: 09/06/2017, July 07, 2017 FINDINGS: Median sternotomy wires and CABG clips. Previously described right thyroid nodule is poorly seen on this noncontrast study. The lungs are normal. There is no demonstrated pleural abnormality. Coronary artery stents. Normal mediastinum. Normal hilar regions. Normal unenhanced pulmonary arteries. Normal aorta arch and descending thoracic aorta. Normal osseous structures. There is no demonstrated abnormality of the visualized upper abdomen. CT/Chest without Contrast IMPRESSION: No significant pulmonary or mediastinal abnormalities are detected. Electronically Signed: Kendrick Shin MD at 6:22 EST Tel , Service support ,
== END ==
PROVIDERS: Family Provider Internal Medicine; PCP Internal Medicine; Referring Provider Internal Medicine Critical Care Medicine; Visit Provider Internal Medicine Critical Care Medicine
DX: R06.02 Shortness of breath (principal)
CPT/HCPCS: 71250

== ENCOUNTER → 2018-04-13 17:22 | Outpatient (CLI) | payer MEDICAID, SELFPAY ==
[2018-01-12 13:19] VITALS: BMI 30.9
[2018-04-07 10:36] VITALS: BMI 29.9
--- NOTE | 2018-04-13 17:30 | RAD_ITS ---
HISTORY: right hip pain for months COMPARISON: CT abdomen and pelvis 09/12/2017 FINDINGS: XR AP pelvis and right hip 3 views No fracture or acute disease. The sacroiliac and hip joints appear preserved. No bony erosions. Upper right sacrum 9-10 mm circumscribed sclerotic density which corresponds to a benign bone island as correlated with previous CT. No suspicious bony lesion. The soft tissues show no gross abnormality. RAD/HIP, UNI W/ Pelvis 2-3 Views IMPRESSION: Normal right hip. at 0235 Reported and signed by: Royce Haynes MD Electronically Signed: Royce Haynes, at 2:34 EST Tel , Service support ,
== END ==
PROVIDERS: Family Provider Internal Medicine; PCP Internal Medicine; Referring Provider Anesthesiology Pain Medicine; Visit Provider Anesthesiology Pain Medicine
DX: M25.551 Pain in right hip (principal)
CPT/HCPCS: 73502

== ENCOUNTER → 2018-04-25 11:23 | Outpatient (CLI) | payer MEDICAID, SELFPAY ==
[2018-01-12 13:19] VITALS: BMI 30.9
[2018-04-25 10:39] VITALS: BMI 29.9
[2018-04-25 12:44] LABS: Absolute Lymphocyte Count 1.99 X10^3/ul (0.83-4.51); Absolute Neutrophil Count 4.1 X10^3/uL (2.0-7.7); Basophil# 0.02 X10^3/uL; Basophil% 0.3 % (0-1); Eosinophil# 0.33 X10^3/uL; Eosinophils% 4.7 % (0-5); Hematocrit 43.9 % (37-47); Hemoglobin 14.4 g/dl (12.0-15.0); Lymphocyte # 1.99 X10^3/ul (4.0); Lymphocyte % 28.4 % (19-41); Mean Corp Hgb Conc 32.8 g/gl (32-36); Mean Corpuscular Hgb 28.7 pg (27.0-32.0); Mean Corpuscular Volume 87.5 fL (81-99); Mean Platelet Vol. 12.5 fl (6.2-12.0); Monocyte# 0.48 X10^3/uL; Monocyte% 6.9 % (0-10); Neutrophil # 4.14 X10^3/uL (2.7-7.7); Neutrophil % 59.1 % (47-70); Platelet Count 176 K/mm3 (150-450); Red Blood Count 5.02 M/mm3 (4.2-5.4)
[2018-04-25 12:46] LABS: POSITIVE COUNT NO; POSITIVE DIFFERENTIAL NO; POSITIVE MORPHOLOGY NO
[2018-04-25 13:03] LABS: Amylase 51 U/L (25-115); Lipase 162 U/L (73-393)
== END ==
PROVIDERS: Family Provider Internal Medicine; PCP Internal Medicine; Visit Provider Internal Medicine
DX: R10.9 Unspecified abdominal pain (principal)
CPT/HCPCS: 36415; 82150; 83690; 85025

== ENCOUNTER → 2018-06-20 | Outpatient (CLI) | payer MEDICAID, SELFPAY ==
[2018-01-12 13:19] VITALS: BMI 30.9
[2018-06-20 10:52] VITALS: BMI 31.0
[2018-06-20 12:52] LABS: ALB/GLOB Ratio 0.7 RATIO (0.9-2.4); AST(SGOT) 36 U/L (15-37); Alanine Aminotransfer ALT/SGPT 28 U/L (13-56); Albumin, Serum 2.9 g/dL (3.2-5.0); Alkaline Phosphatase 204 U/L (45-117); Anion Gap 5 (5-15); BUN 21 mg/dL (7-18); Calcium,Total 8.7 mg/dL (8.5-10.1); Chloride 107 mmol/L (98-107); EST Glomerular Filtration Rate 41 mL/min (>60); Est Glom Filt Rate - Afr Amer 49 mL/min (>60); Globulin 3.9 g/dL (2.2-4.2); Glucose 431 mg/dL (74-106); Potassium 4.4 mmol/L (3.5-5.1); Protein, Total 6.8 g/dL (6.4-8.2); Sodium Level 136 mmol/L (136-145)
[2018-06-20 12:55] LABS: Cholesterol 161 mg/dL (200); High Density Lipoprotein 42 mg/dL; Triglycerides 364 mg/dL; Very Low Density Lipoprotein 73 mg/dL (5-40)
[2018-06-20 12:56] LABS: Hemoglobin A1c 9.4 % (4.2-6.3)
[2018-06-20 12:57] LABS: Microalbumin:Creatinine Ratio 187.5 mg/g CRE (<30 mg/g CRE)
== END | disposition home or self-care (01) ==
LOC: LAB 11:44
PROVIDERS: Family Provider Internal Medicine; PCP Internal Medicine; Referring Provider Physician Assistant Medical; Visit Provider Physician Assistant Medical
DX: I25.810 Atherosclerosis of coronary artery bypass graft(s) without angina pectoris (principal); E78.5 Hyperlipidemia, unspecified; E11.9 Type 2 diabetes mellitus without complications; I10 Essential (primary) hypertension
CPT/HCPCS: 36415; 80053; 80061; 82043; 82570; 83036

== ENCOUNTER → 2018-06-27 | Outpatient (CLI) | payer MEDICAID, SELFPAY ==
[2018-01-12 13:19] VITALS: BMI 30.9
[2018-06-27 10:10] VITALS: BMI 31.0
[2018-06-27 12:30] LABS: Amphetamine Urine VISTA NEGATIVE (<1000 ng/mL); Barbiturate Urine VISTA NEGATIVE (< 200 ng/mL); Benzodiazepine Urine VISTA NEGATIVE (< 200 ng/mL); Cocaine Urine VISTA NEGATIVE (< 300 ng/mL); Ecstacy Urine VISTA NEGATIVE (< 500 ng/mL); Methadone Urine VISTA NEGATIVE (< 300 ng/mL); PCP Urine VISTA NEGATIVE (< 25 ng/mL); THC Urine VISTA NEGATIVE (< 50 ng/mL); Vista UDS pH Range 6
[2018-06-27 12:52] LABS: Rheumatoid Factor < 10.0 IU/mL (<15)
== END | disposition home or self-care (01) ==
LOC: BIMLAB 11:03
PROVIDERS: Family Provider Internal Medicine; PCP Internal Medicine; Visit Provider Internal Medicine
DX: M19.90 Unspecified osteoarthritis, unspecified site (principal); G89.29 Other chronic pain
CPT/HCPCS: 36415; 80307; 86431

== ENCOUNTER 2018-06-30 17:52 | Observation (INO) | payer MEDICAID, SELFPAY ==
[2018-01-12 13:19] VITALS: BMI 30.9
[2018-06-27 10:10] VITALS: BMI 31.0
[2018-06-30] VITALS (8 sets, daily range): BP systolic 131–210; BP diastolic 65–103; PULSE 71–93; RESP 16; TEMP 36.8–37; O2SAT 92–98; BMI 32.1; BMI 31.3; BMI 31.4
--- NOTE | 2018-06-30 18:02 | EKG12_ITS ---
Test Reason : CP Blood Pressure : / mmHG Vent. Rate : 093 BPM Atrial Rate : 093 BPM P-R Int : 170 ms QRS Dur : 092 ms QT Int : 328 ms P-R-T Axes : 047 -31 162 degrees QTc Int : 407 ms Normal sinus rhythm Left axis deviation ST & T wave abnormality, consider inferior ischemia ST & T wave abnormality, consider anterolateral ischemia Abnormal ECG Confirmed by COURTNEY DOMINGUEZ, NIXON ([id number]), social media editor ISABELLA BUTLER ([id number]) on 07/04/2018 11:30:20 AM Referred By: SAMMIE/KARLOS Confirmed By:NIXON VALDEZ MD
--- NOTE | 2018-06-30 18:05 | ED.DCSUM_ITS ---
- ER Visit Summary Date of Service: 06/30/18 Chief Complaint: [] Chest pain since this morning History of Present Illness: The patient is a 57 F [] history of cardiovascular disease, CABG, she indicates she has 11 stents, last was in January, she went to bed feeling fine she woke with chronic low lumbar back pain and then chest pressure that persisted throughout the day, she called paramedics she was given aspirin and nitroglycerin brought to the emergency department, the chest pressure she is having is typical of her usual angina, she is followed by Dr. Platt and over 40, she had no fever no cough, her low lumbar back pain is chronic in nature related to as she reports degenerative disc disease, lumbar disc protrusions, she was scheduled to be considered for lumbar back pain pump but that process never took place She also has history of ulcerative colitis with colostomy her colostomy is drai derrell brown stool, she notes no trauma no change in her health status until the above this morning Physical Examination: [] Vital signs are within normal range General, no distress resting comfortably HEENT is generally unremarkable The neck is supple no adenopathy Cardiovascular, regular rate and rhythm Lungs, clear bilateral Abdomen, soft nontender, the colostomy is draining brown stool, she complains of pain to the lower lumbar back to the typical of her usual back pain Extremities, no clubbing cyanosis or edema Neurologic, awake alert answering questions appropriately moving all 4 extremities, no neurologic abnormalities noted to lower extremities Test Results: [] Emergency Department Course and Treatment: [] EKG shows a sinus rhythm with diffuse ST segment edges that were present on previous EKGs none appear new, at this time she is treated with aspirin nitroglycerin we will treat with morphine that should help both her chest pain her back pain there is nothing to suggest dissection as she has had both of these conditions in the past will reevaluate Treatment Plan: [] The patient's screening labs troponin chest x-ray are all generally unremarkable please see those reports given her complaints given her past history risk factors have asked the hospital see her for admission further management, screening labs were unremarkable as well as the chest x-ray Disposition: [] Admit stable Impression: [] Chest pain history of CABG cardiac stents This note was generated with [employer] software. It may contain incorrect words, spelling, and punctuation that were not noted in review of the chart prior to signing ED Disposition - Plan for ED Patient: Referrals: Mala Mcgrath MD [Primary Care Provider] -
--- NOTE | 2018-06-30 18:05 | RAD_ITS ---
STUDY: X-RAY CHEST REASON FOR EXAM: Female, 57 years old. Chest pain TECHNIQUE: Single AP portable view of the chest. COMPARISON: 01/11/2018 FINDINGS: The lungs are clear and expanded. There is no demonstrated pleural abnormality. Sternal cerclage wires are present from a prior sternotomy. Heart size is borderline enlarged. Normal mediastinum and marie. Normal visualized pulmonary arteries. Normal visualized aortic arch and descending thoracic aorta. Normal visualized thoracic spine. Normal visualized ribs, clavicles, and shoulders. There is no demonstrated abnormality of the visualized soft tissue structures of the upper abdomen. RAD/Chest 1 View (Portable) IMPRESSION: Normal x-ray examination of the chest. Electronically Signed: Roberto Aguilar DO at 18:25 EDT Tel , Service support ,
[2018-06-30] MEDS: morphine 8 MG/ML Syringe IV (18:09)
[2018-06-30] MEDS: 0.9% Normal Saline 1,000 ML 150 ML IV (18:09)
[2018-06-30] MEDS: Ondansetron 4 MG/2 ML Vial IV (18:09)
[2018-06-30 18:28] LABS: Absolute Lymphocyte Count 2.33 X10^3/ul (0.83-4.51); Absolute Neutrophil Count 5.7 X10^3/uL (2.0-7.7); Basophil# 0.02 X10^3/uL; Basophil% 0.2 % (0-1); Eosinophil# 0.57 X10^3/uL; Eosinophils% 6.3 % (0-5); Hematocrit 40.8 % (37-47); Hemoglobin 13.7 g/dl (12.0-15.0); Lymphocyte # 2.33 X10^3/ul (4.0); Lymphocyte % 25.7 % (19-41); Mean Corp Hgb Conc 33.6 g/gl (32-36); Mean Corpuscular Hgb 29.1 pg (27.0-32.0); Mean Corpuscular Volume 86.6 fL (81-99); Mean Platelet Vol. 12.4 fl (6.2-12.0); Monocyte% 4.4 % (0-10); Neutrophil # 5.73 X10^3/uL (2.7-7.7); Neutrophil % 63.1 % (47-70); POSITIVE COUNT NO; POSITIVE DIFFERENTIAL NO; POSITIVE MORPHOLOGY NO; Platelet Count 172 K/mm3 (150-450); RBC Distribution Width CV 15.7 % (11.6-14.6); RBC Distribution Width SD 50.3 fl (35.1-43.9); Red Blood Count 4.71 M/mm3 (4.2-5.4); White Blood Count 9.1 K/mm3 (4.4-11.0)
[2018-06-30 18:37] LABS: Anion Gap 7 (5-15); BUN 25 mg/dL (7-18); BUN/Creat Ratio 16.9 RATIO (10-20); Calcium,Total 8.7 mg/dL (8.5-10.1); Chloride 105 mmol/L (98-107); Creatinine, Serum 1.48 mg/dL (0.55-1.02); EST Glomerular Filtration Rate 38 mL/min (>60); Est Glom Filt Rate - Afr Amer 46 mL/min (>60); Glucose 398 mg/dL (74-106); Potassium 4.5 mmol/L (3.5-5.1); Sodium Level 139 mmol/L (136-145)
[2018-06-30 18:53] LABS: BNP,B-Type NATRIURETIC PEPTIDE 34.2 pg/mL (0-100)
--- NOTE | 2018-06-30 21:03 | RAD_ITS ---
STUDY: X-RAY - LUMBAR SPINE REASON FOR EXAM: Female, 57 years old. Low back pain. TECHNIQUE: 3 view(s) of the lumbar spine were obtained. COMPARISON: 02/16/2017 FINDINGS: There is straightening of the normal lumbar lordosis. There is no substantial scoliosis. There is a normal alignment of the vertebrae. Normal vertebral bodies and endplates. Moderate narrowing of the disc at L5-S1. Otherwise normal disc space heights. There is no demonstrated fracture. There is atherosclerotic calcification of the abdominal aorta without a demonstrated aneurysm. RAD/Lumbar Spine 2 or 3 Views IMPRESSION: Degenerative disc disease at L5-S1. No acute abnormalities or other findings. No definite change. Electronically Signed: Pancho Mckeon MD at 21:45 EDT , Service support ,
--- NOTE | 2018-06-30 21:41 | PCM.HP.STD ---
Problem List (1) Essential (primary) hypertension Status: Chronic (2) H/O coronary artery bypass surgery Status: Resolved Comment: CABG x 4 JONES-LAD, SVG-D1, SVG-OM1, SVG-LPDA 05/18/2012 (3) Atherosclerosis of coronary artery bypass graft without angina pectoris Status: Chronic Qualifiers: Comment: CABG x 4 JONES-LAD, SVG-D1, SVG-OM1, SVG-LPDA 05/18/2012 PCI-CLINTON mid D1 with a 2.25 x 12 Promus Synergy 01/12/2018 Mid LAD and Cx 08/30/2012, D1 and prox OM1 09/14/12, Prox SVG, Distal SVG to the Mid OM 10/31/2012 (4) History of coronary artery stent placement Status: Resolved Comment: PCI-CLINTON mid D1 with a 2.25 x 12 Promus Synergy 01/12/2018 Mid LAD and Cx 08/30/2012, D1 and prox OM1 09/14/12, Prox SVG, Distal SVG to the Mid OM 10/31/2012 (5) Ulcerative colitis Status: Chronic Comment: Status post ileostomy (6) Ileostomy status Status: Chronic (7) Hyperlipidemia Status: Chronic Qualifiers: (8) DM2 (diabetes mellitus, type 2) Status: Chronic Qualifiers: (9) Lumbar back pain Status: Acute (10) Chest pain Status: Acute History of Present Illness Date of Admission: 06/30/18 Chief Complaint: Chest pain and low back pain The patient is a 57 year old F with a PMH as below who presents with significant low back pain with inability to walk. She states that she has significant back pain with any type of movement. She has not lost control of her bladder function and she has an ileostomy after having a total colectomy for ulcerative colitis. She says that she has been having worsening back pain for the last 3 to 4 days, however today she also then developed anterior chest pressure that is similar to her previous episodes that necessitated stents. In the ER she had an unchanged EKG from baseline as well as a normal troponin. She states that she has seen pain management and they were going to do a baclofen pump for her back however she needed a stent placed in January and therefore was unable to get the baclofen pump, and she is also seen a neurosurgeon who said that she was not a candidate for surgery, though she states that she has never had an MRI. She denies any lightheadedness, dizziness, fever or shortness of breath. Past Medical History Past Medical History (Chronic Problems): Chronic Problems (Last Reviewed 04/26/18 @ 10:27 by Ema Henderson) Arthritis (Chronic) Essential (primary) hypertension (Chronic) Atherosclerosis of coronary artery bypass graft without angina pectoris (Chronic) CABG x 4 JONES-LAD, SVG-D1, SVG-OM1, SVG-LPDA 05/18/2012 PCI-CLINTON mid D1 with a 2.25 x 12 Promus Synergy 01/12/2018 Mid LAD and Cx 08/30/2012, D1 and prox OM1 09/14/12, Prox SVG, Distal SVG to the Mid OM 10/31/2012 Depression (Chronic) FCHL (familial combined hyperlipidemia) (Chronic) Ulcerative colitis (Chronic) Status post ileostomy Pulmonary hypertension (Chronic) Chronic respiratory failure (Chronic) COPD (chronic obstructive pulmonary disease) (Chronic) Anemia of chronic renal failure, stage 3 (moderate) (Chronic) Obstructive sleep apnea (Chronic) Psoriasis (Chronic) Heart failure with preserved ejection fraction (Chronic) Ileostomy status (Chronic) Surgical wound dehiscence (Chronic) Shortness of breath (Chronic) Multiple falls (Chronic) Right thyroid nodule (Chronic) 1.4 centimeter right sided nodule on CT scan Thyroid mass (Chronic) Syncope (Chronic) Vertigo (Chronic) Chronic renal insufficiency (Chronic) Sleep apnea (Chronic) Menieres disease (Chronic) Ulcerative colitis (Chronic) Hyperlipidemia (Chronic) DM2 (diabetes mellitus, type 2) (Chronic) Medical History: Medical History (Last Reviewed 04/26/18 @ 10:27 by Ema Henderson) Essential (primary) hypertension (Chronic) I10 Atherosclerosis of coronary artery bypass graft without angina pectoris (Chronic) I25.810 CABG x 4 JONES-LAD, SVG-D1, SVG-OM1, SVG-LPDA 05/18/2012 PCI-CLINTON mid D1 with a 2.25 x 12 Promus Synergy 01/12/2018 Mid LAD and Cx 08/30/2012, D1 and prox OM1 09/14/12, Prox SVG, Distal SVG to the Mid OM 10/31/2012 Thyroid mass (Chronic) E07.9 Syncope (Chronic) R55 Vertigo (Chronic) R42 Chronic renal insufficiency (Chronic) N18.9 Sleep apnea (Chronic) G47.30 Menieres disease (Chronic) H81.09 Ulcerative colitis (Chronic) K51.90 Hyperlipidemia (Chronic) E78.5 DM2 (diabetes mellitus, type 2) (Chronic) E11.9 CKD (chronic kidney disease) stage 3, GFR 30-59 ml/min N18.3 HTN (hypertension) I10 Hypertensive chronic kidney disease with stage 1 through stage 4 chronic kidney disease, or unspecified chronic kidney disease I12.9 Allergies cinnamon [Cinnamon] Allergy (Verified 06/30/18 18:01) Anaphylaxis Influenza Virus Vaccines Allergy (Verified 06/30/18 18:01) Shortness of breath liraglutide [From Victoza] Allergy (Verified 06/30/18 18:01) Anaphylaxis metronidazole [From Flagyl] Allergy (Verified 06/30/18 18:01) Hives Metronidazole HCl [From Flagyl] Allergy (Verified 06/30/18 18:01) Hives Penicillins Allergy (Verified 06/30/18 18:01) Hives Sulfa (Sulfonamide Antibiotics) Allergy (Verified 06/30/18 18:01) Hives ciprofloxacin [From Cipro] Adverse Reaction (Verified 06/30/18 18:01) Nausea codeine Adverse Reaction (Verified 06/30/18 18:01) Stops Ileostomy dicyclomine HCl [From Bentyl] Adverse Reaction (Verified 06/30/18 18:01) Nausea metformin HCl [From Glucophage] Adverse Reaction (Verified 06/30/18 18:01) Nausea Wmwcogj-Ozy-Yjc Reductase Inhibitor Adverse Reaction (Verified 06/30/18 18:01) Nausea/joints ache Home Medications: Ambulatory Orders Medication Instructions Recorded tramadol 50 mg tablet 50 mg PO BID PRN PRN tab 05/05/17 Furosemide [Lasix] 40 mg PO QODAY 07/07/17 insulin glargine (U-100) 100 80 units SC BID ml 09/02/17 unit/mL (3 mL) subcutaneous pen magnesium oxide 400 mg (241.3 mg 400 mg PO BID #60 tab 09/21/17 magnesium) tablet metoprolol tartrate 50 mg tablet 75 mg PO BID #90 tab 09/21/17 buprenorphine 7.5 mcg/hour weekly 1 patch TRANSDERMAL FR 10/18/17 transdermal patch omeprazole 20 mg capsule,delayed 20 mg PO DAILY #90 cap 10/19/17 release Aspirin E.C. [Ecotrin] 81 mg PO DAILY 01/11/18 insulin aspart (U-100) 100 unit/mL See Rx Instructions SC .COMPLEX 02/01/18 (3 mL) subcutaneous pen #30 ml atorvastatin 80 mg tablet 80 mg PO QHS #30 tab 02/09/18 miconazole nitrate 2 % topical 1 applic TOPICAL DAILY #85 g 02/09/18 powder nitroglycerin 0.4 mg sublingual 0.4 mg SUBLINGUAL Q5M PRN #25 tab 02/18/18 tablet calcium carbonate 600 mg calcium 600 mg PO BID #60 tab 04/20/18 (1,500 mg) tablet ondansetron 4 mg disintegrating 4 mg PO BID-TID PRN #30 tab 04/26/18 tablet promethazine 12.5 mg tablet 12.5 mg PO TID PRN #20 tab 04/26/18 clopidogrel 75 mg tablet 75 mg PO DAILY #30 tab 06/20/18 isosorbide dinitrate 30 mg tablet 30 mg PO BID tab 06/20/18 metoprolol tartrate 25 mg tablet 25 mg PO BID #60 tab 06/20/18 lorazepam 0.5 mg tablet 0.25 mg PO QHS PRN #15 tab 06/27/18 pregabalin 50 mg capsule 50 mg PO BID #60 cap 06/27/18 Baclofen [Lioresal] 10 mg PO DAILY 06/30/18 Cholecalciferol (Vitamin D3) 2,000 unit PO DAILY 06/30/18 [D3-2000] Hydrocortisone 1% Crm [Hytone] 1 applic TOPICAL BID 06/30/18 Loperamide [Imodium] 2 mg PO PRN PRN 06/30/18 Ranolazine [Ranexa] 500 mg PO BID 06/30/18 Venlafaxine XR [Effexor Xr] 150 mg PO DAILY 06/30/18 Surgical History: Surgical History (Last Reviewed 04/26/18 @ 10:27 by Ema Henderson) H/O coronary artery bypass surgery (Resolved) Onset Date: 05/18/12 Z95.1 CABG x 4 JONES-LAD, SVG-D1, SVG-OM1, SVG-LPDA 05/18/2012 History of coronary artery stent placement (Resolved) Onset Date: 01/12/18 Z95.5 PCI-CLINTON mid D1 with a 2.25 x 12 Promus Synergy 01/12/2018 Mid LAD and Cx 08/30/2012, D1 and prox OM1 09/14/12, Prox SVG, Distal SVG to the Mid OM 10/31/2012 H/O colectomy Z98.890, Z90.49 H/O sinus surgery Z98.890 H/O total hysterectomy Z98.890, Z90.710 gallbdder removal history closed fissure ileostomy left thumb surgery lysis of adhesion vestibular nerve surgery for Meniere's ABD abscess removal 09/18/2017 Surgical History: angioplasty, coronary bypass surgery, hysterectomy, - Psychiatric History: Anxiety, Depression [employer] History: No pertinent [employer] history Smoking Status: Former smoker - *Family History Maternal Family History: Family History (Last Reviewed 04/26/18 @ 10:27 by Ema Henderson) Mother CVA (cerebral vascular accident) Diabetes Brother Heart disease Myocardial infarction Pancreatitis Father Cancer Lymphoma Grandmother Myocardial infarction Sister COPD (chronic obstructive pulmonary disease) History Items: Heart Disease, - - No autoimmune disease that she is aware of Paternal Family History: Family History (Last Reviewed 04/26/18 @ 10:27 by Ema Henderson) Mother CVA (cerebral vascular accident) Diabetes Brother Heart disease Myocardial infarction Pancreatitis Father Cancer Lymphoma Grandmother Myocardial infarction Sister COPD (chronic obstructive pulmonary disease) History Items: Cancer - Father has H/o lymphoma, - - No autoimmune disease that she is aware of Review of Systems Constitutional: Denies: Chills, Fever, Weight Change HEENT: Denies: Head Aches, Sinus Congestion, Sinus Drainage Cardiovascular: Reports: Chest Pressure. Denies: Chest Pain, Palpitations Respiratory: Denies: Cough, Shortness of breath at rest, Sputum production Gastrointestinal: Reports: Abdominal Pain. Denies: Nausea, Vomiting Genitourinary: Denies: Dysuria Musculoskeletal: Denies: Joint Pain, Joint Tenderness Skin: Denies: Rash, Wounds Neurological: Reports: - - Bilateral leg weakness secondary to pain. Denies: Focal weakness, Numbness, Tingling Psychiatric: Denies: Anxiety, Depression Hematologic/ Lymphatic: Denies: Easy Bruising, Easy Bleeding VTE Information - Inpt Only VTE Present on Admission: No Patient Problems: Active and Suspected Problems (Last Reviewed 04/26/18 @ 10:27 by Ema Henderson) Lumbar back pain (Acute) Chest pain (Acute) - Physical Exam General: Alert, Oriented x3, Cooperative, No apparent distress HEENT: Atraumatic, PERRLA, EOMI, Normocephalic Oral: Moist Mucosa Neck: Supple, No JVD, Trachea Midline Lungs: Clear to auscultation, Normal air movement, No rhonchi, No wheeze, No rales Cardiovascular: Regular rate, Regular Rhythm, Normal S1, Normal S2, No murmurs Abdomen: Soft, Non-Distended, No Hepato-splenomegaly, Tender - Right lower quadrant where she had a previous fistula after her initial ileostomy Extremities: No edema, Capillary Refill Less than 3 Seconds Skin: - - Areas of psoriasis on her face Neurological: Deep Tendon Reflexes 2+/4 and Symmetrical, Neuro grossly intact, Sensory exam intact to light touch and pain Psych/Mental Status: Normal Affect, Appropriate Vital Signs Temp Pulse Resp BP Pulse Ox 98.6 F 72 16 162/65 H 98 06/30/18 17:53 06/30/18 20:31 06/30/18 20:31 06/30/18 20:31 06/30/18 20:31 Oxygen Delivery Method Room Air Weight: 205 lb 0.478 oz Body Mass Index (BMI) 32.1 Finger Stick Blood Glucose 348 Laboratory Tests Past 24 Hrs 06/30/18 06/30/18 06/30/18 17:55 17:55 17:55 WBC 9.1 RBC 4.71 Hgb 13.7 Hct 40.8 MCV 86.6 MCH 29.1 MCHC 33.6 RDW 15.7 H RDW Differential 50.3 H Plt Count 172 MPV 12.4 H Immature Gran % (Auto) 0.300 Neut % (Auto) 63.1 Lymph % (Auto) 25.7 Ashley % (Auto) 4.4 Eos % (Auto) 6.3 H Baso % (Auto) 0.2 Absolute Neuts (auto) 5.7 Absolute Lymphs (auto) 2.33 Total Counted Not Reportable Sodium 139 Potassium 4.5 Chloride 105 Carbon Dioxide 27.0 Anion Gap 7 BUN 25 H Creatinine 1.48 H Estim Creat Clear Calc 39.80 Est GFR (MDRD) Af Amer 46 L Est GFR (MDRD) Non-Af 38 L BUN/Creatinine Ratio 16.9 Glucose 398 H Calcium 8.7 Troponin I < 0.015 B-Natriuretic Peptide 34.2 Assessment/Plan All Active Problems (Last Reviewed 04/26/18 @ 10:27 by Ema Henderson) Lumbar back pain (Acute) Chest pain (Acute) H/O coronary artery bypass surgery (Resolved 05/18/12) History of coronary artery stent placement (Resolved 01/12/18) Acute pancreatitis (Resolved) Abdominal pain (Acute) Chest pain (Resolved) Hypokalemia (Resolved) 1. Chest pain/CAD status post multiple stents and a four-vessel CABG/HTN/HLD -She has had multiple episodes of chest pain as well and significant coronary artery bypass to the LAD, D1, OM1, L PDA in 2012 -She has had 9 stents placed with the most recent one done in January -Will obtain an echo in the morning -Serial troponins -EKG appears to be at baseline -Continue with her aspirin, statin, Plavix, metoprolol, and isosorbide dinitrate -Hold her Lasix while on IV fluids 2. Acute on chronic low back pain/depression -She states that she has never had an MRI of her back and she had a lumbar x-ray about 2 years ago -She is to have a baclofen pump placed however she had a stent in January and therefore cannot have it done for at least a year -She is on p.o. baclofen as well as a transdermal buprenorphine patch and Lyrica. Depression -We will continue with her p.o. baclofen as well as her Lyrica, will hold her buprenorphine patch and start her on oxycodone as needed and obtain an MRI of her low back -Given her cardiac history and her vasculopathy there is little bit of a concern that she could have an aortic aneurysm, pulses to her lower extremities are intact and could not feel a pulsatile mass in her abdomen, if the MRI is negative may need to proceed with a CTA of her abdomen -Continue with Effexor 3. IDDM 2/CKD 3 -We will continue with her home medication of insulin glargine 80 units twice daily as well as a sliding scale -Given how elevated her blood sugar is we will also add a mealtime coverage -Check blood sugars before meals at bedtime 4. Abdominal pain/ulcerative colitis status post ileostomy -She has had a previous ileostomy in the right lower quadrant and developed a fistula when it was moved to her left lower quadrant. -Some degree of chronic abdominal pain secondary to adhesions. -She is not on any biologic medication either for her psoriasis or her ulcerative colitis to make me think that she has a possibility of an epidural abscess -No leukocytosis or fevers 5. Psoriasis -She is not on any medications for this -Plans to see a licensed psychologist manager for possible topical treatment DVT: Lovenox Code Visit Inpatient E&M: 38713 Init Hosp L3
[2018-06-30] MEDS: 0.9% Normal Saline 1,000 ML 100 ML IV (22:58)
[2018-07-01] VITALS (25 sets, daily range): BP systolic 110–182; BP diastolic 56–79; PULSE 61–83; RESP 16–18; TEMP 36.6–36.9; O2SAT 93–97
[2018-07-01] MEDS: Morphine 2 MG/ML Syringe IV ×2 (00:23→10:48)
[2018-07-01] MEDS: oxyCODONE 5 MG Tablet PO ×3 (01:39→20:01)
[2018-07-01] MEDS: Metoprolol Tartrate 50 MG Tablet 75 MG PO ×2 (01:57→10:36)
--- NOTE | 2018-07-01 04:56 | EKG12_ITS ---
Test Reason : CP Blood Pressure : / mmHG Vent. Rate : 066 BPM Atrial Rate : 066 BPM P-R Int : 160 ms QRS Dur : 092 ms QT Int : 412 ms P-R-T Axes : 003 -20 167 degrees QTc Int : 431 ms Normal sinus rhythm Left ventricular hypertrophy Nonspecific ST/T Wave Abnormality Abnormal ECG Confirmed by COURTNEY DOMINGUEZ, NIXON ([id number]), editor house organ ISABELLA BUTLER ([id number]) on 07/04/2018 12:24:55 PM Referred By: EJ Confirmed By:NIXON VALDEZ MD
[2018-07-01] MEDS: traMADol 50 MG Tablet PO (05:12)
[2018-07-01 05:21] LABS: Absolute Lymphocyte Count 2.44 X10^3/ul (0.83-4.51); Absolute Neutrophil Count 3.7 X10^3/uL (2.0-7.7); Basophil# 0.02 X10^3/uL; Basophil% 0.3 % (0-1); Eosinophil# 0.58 X10^3/uL; Hematocrit 40.5 % (37-47); Hemoglobin 13.2 g/dl (12.0-15.0); Lymphocyte # 2.44 X10^3/ul (4.0); Lymphocyte % 33.6 % (19-41); Mean Corp Hgb Conc 32.6 g/gl (32-36); Mean Corpuscular Hgb 28.2 pg (27.0-32.0); Mean Corpuscular Volume 86.5 fL (81-99); Mean Platelet Vol. 12.9 fl (6.2-12.0); Monocyte# 0.46 X10^3/uL; Monocyte% 6.3 % (0-10); Neutrophil # 3.72 X10^3/uL (2.7-7.7); Neutrophil % 51.1 % (47-70); Platelet Count 154 K/mm3 (150-450); RBC Distribution Width CV 15.8 % (11.6-14.6); RBC Distribution Width SD 49.1 fl (35.1-43.9); Red Blood Count 4.68 M/mm3 (4.2-5.4); White Blood Count 7.3 K/mm3 (4.4-11.0)
[2018-07-01 05:23] LABS: POSITIVE COUNT NO; POSITIVE DIFFERENTIAL NO; POSITIVE MORPHOLOGY NO
[2018-07-01 05:52] LABS: Anion Gap 9 (5-15); BUN 19 mg/dL (7-18); BUN/Creat Ratio 15.8 RATIO (10-20); Calcium,Total 8.4 mg/dL (8.5-10.1); Chloride 109 mmol/L (98-107); EST Glomerular Filtration Rate 49 mL/min (>60); Est Glom Filt Rate - Afr Amer 59 mL/min (>60); Estimated Creatinine Clearance 49.09 ml/min; Glucose 160 mg/dL (74-106); Sodium Level 143 mmol/L (136-145)
--- NOTE | 2018-07-01 05:55 | ECHOCS_ITS ---
Reason For Study: CP Procedure This was a 2D Doppler, Color Flow transthoracic echocardiogram. The study was technically difficult. Contrast injection was performed. Exam performed portable in patient room. Left Ventricle Normal LV size. Mild concentric left ventricular hypertrophy. Left ventricular systolic function is normal. The estimated ejection fraction is 65 %. Diastolic function is indeterminate. No regional wall motion abnormalities noted. Right Ventricle Normal RV size. Normal systolic function. Atria The left atrium is mildly enlarged. Normal right atrium. No doppler evidence for ASD. Mitral Valve There is no mitral annular calcification. Mild focal mitral valve calcification of the anterior leaflet. Mild (1+) mitral valve insufficiency. Tricuspid Valve Normal tricuspid valve. Trivial tricuspid valve insufficiency. Unable to estimate RV systolic pressure/pulmonary artery pressure due to technically difficult study. Aortic Valve The aortic valve is not well visualized. Pulmonic Valve The pulmonic valve is not well visualized. Mild-Moderate (1-2+) pulmonic valve insufficiency. Great Vessels Normal sized aortic root. Pericardium/Pleural No pericardial effusion. Medication Diluted definity 4ml given slow IV push to enhance endocardial definition. MMode/2D Measurements & Calculations LVIDd: 5.1 cm IVSd: 1.3 cm LAV(MOD-bp): 47.3 ml LVIDs: 2.7 cm LVPWd: 1.4 cm FS: 47.6 % LAV(MOD-bp) Indexed: 23.4 ml/m2 LAV(MOD-sp2): 41.0 ml LAV(MOD-sp4): 53.8 ml SV(MOD-sp4): 81.1 ml SV(sp4-el): 84.2 ml LVAd ap4: 33.3 cm2 EDV(MOD-sp4): 111.7 ml EDV(sp4-el): 115.7 ml LVAs ap4: 15.7 cm2 ESV(MOD-sp4): 30.6 ml ESV(sp4-el): 31.4 ml EF(MOD-sp4): 72.6 % EF(sp4-el): 72.8 % LA A4 area: 18.3 cm2 Time Measurements MV dec time: 0.16 sec Doppler Measurements & Calculations MV E max los: 135.2 cm/sec Lat Peak E' Los: 8.4 cm/sec Med Peak E' Los: 6.5 cm/sec MV A max los: 111.3 cm/sec E/E' lat: 16.1 E/E' med: 20.7 MV E/A: 1.2 MV V2 max: 157.0 cm/sec MV P1/2t max los: 157.9 cm/sec Ao V2 max: 147.5 cm/sec MV max P.9 mmHg MV P1/2t: 67.3 msec Ao max P.7 mmHg MV V2 mean: 86.5 cm/sec MV dec slope: 687.0 cm/sec2 Ao V2 mean: 97.1 cm/sec MV mean P.6 mmHg Ao mean P.2 mmHg MV V2 VTI: 40.6 cm MVA(P1/2t): 3.3 cm2 Ao V2 VTI: 28.0 cm LV V1 max: 120.8 cm/sec PA V2 max: 116.5 cm/sec PI end-d los: 142.5 cm/sec LV V1 max P.8 mmHg LV V1 mean P.0 mmHg LV V1 mean: 79.7 cm/sec LV V1 VTI: 28.2 cm Interpretation Summary The study was technically difficult. Contrast injection was performed. Left ventricular systolic function is normal. The estimated ejection fraction is 65 %. Mild concentric left ventricular hypertrophy. The left atrium is mildly enlarged. Mild focal mitral valve calcification of the anterior leaflet. Mild (1+) mitral valve insufficiency. Trivial tricuspid valve insufficiency. Mild-Moderate (1-2+) pulmonic valve insufficiency. Unable to estimate RV systolic pressure/pulmonary artery pressure due to technically difficult study. Diastolic function is indeterminate. Ordering Physician: Juan Carlos Gerber Referring Physician: Mala Mcgrath Performed By: Burton De Anda RCS
--- NOTE | 2018-07-01 05:55 | MRI_ITS ---
STUDY: MRI LUMBAR SPINE WITHOUT CONTRAST REASON FOR EXAM: Female, 57 years old. Leg weakness, back pain, leg pain, left foot tingling TECHNIQUE: Standardized fat and water weighted pulse sequences were obtained in the sagittal and axial planes. COMPARISON: Radiographs 06/30/2018 FINDINGS: T12-L1: Normal endplates. Normal disc height, hydration and morphology. Normal bilateral facet joints. Normal central canal and bilateral lateral recesses. Normal bilateral intervertebral neural foramina. Normal lumbar lordosis. There is no substantial scoliosis. Normal conus medullaris that terminates at the L1 level. L1-2: Normal endplates. Normal disc height, hydration and morphology. Normal bilateral facet joints. Normal central canal and bilateral lateral recesses. Normal bilateral intervertebral neural foramina. L2-3: Normal endplates. Normal disc height, hydration and morphology. Normal bilateral facet joints. Normal central canal and bilateral lateral recesses. Normal bilateral intervertebral neural foramina. L3-4: Left lateral annular fissure without compressive sequelae. L4-5: Bulging annulus with central annular fissure and right foraminal disc protrusion. Mild central canal and moderate right foraminal stenoses. L5-S1: Disc osteophyte complex and left facet hypertrophy with mild right foraminal stenosis. Normal visualized sacral ala. Normal visualized paraspinous soft tissue structures. MRI/Spine Lumbar (Routine) IMPRESSION: Multilevel degenerative disease as described. Moderate right foraminal stenosis at the L4-5 level. Electronically Signed: Kendrick Shin MD at 9:22 EDT Tel , Service support ,
[2018-07-01] MEDS: Insulin Lispro 100 UNIT/ML INSULN.PEN SQ ×4 (06:41→21:57)
[2018-07-01 06:50] LABS: Bedside Glucose 177 mg/dL (70-110)
--- NOTE | 2018-07-01 09:28 | CASEMGMT ---
Patient has a Healthcare POA and Healthcare LW. They are in her chart. 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
--- NOTE | 2018-07-01 10:19 | CASEMGMT ---
RN CM WIRE DRAWING MACHINE TENDER CM to room to meet with patient for initial transition planning/care coordination assessment. RN REDD introduced self and role at [facility]. Pt voices understanding and consents to assessment at this time. Pt resting in bed. Pt is A/O at this time and answers all questions appropriately. Care providers, pharmacy, and demographics verified/updated at this time. PCP: Al[facility]ides Specialists: Lynsey-cardiology, Keven-pulmonology, Basali-pain mgmt, was seeing ANGEL Saez--endocrinology. States is going to be seeing a psychologist and phycologist Preferred Pharmacy: [facility] Insurance: [employer] currently. Does not have a Registry Rn. States insurances will be switching to M[employer] and [employer], beginning July 06. Prescription Benefit: Yes Living Will/HPOA: Has both LW and HCPOA, who is her significant other, Azucena Borrero. Records of both found in e-chart. Living Arrangements: Lives alone in an apt. Independent with personal ADL's but has difficulty managing home tasks/chores. Wants to get Waiver for aide services. Transportation: Pt states drives self and states no transportation concerns at this time. DME: States has the following DME: Cane, walker, BIPAP from [employer], Glucometer--states works properly and has all needed supplies. [employer] Insulin Pump. Pt states no need for further DME at this time. HHC/SNF: No history of SNF. Has used HHC in the past but does not remember name of agency. States does not feel that she needs HHC for nursing or therapy but is wanting to get Waiver for aide services as stated above to assist with home tasks/chores. SHWETHA Olvera, made aware. PT/OT rachel pending. Pt wishes to return home and states has no concerns with going home at time of discharge. CM to follow for any further discharge planning/needs. Pt voices no further concerns/needs at this time. Advised pt to ask for CM if any further questions/concerns/needs arise. Voices understanding. PLAN: Home w/discharge plans in place. SHWETHA consult for assist/info on Waiver program for certified nurse aide services. Mitchel IVAN RN, CM
[2018-07-01] MEDS: Glucerna Shake 120 ML LIQUID PO ×2 (10:34→16:09)
[2018-07-01 10:36] LABS: Bedside Glucose 291 mg/dL (70-110)
[2018-07-01] MEDS: Baclofen 10 MG Tablet PO (10:36)
[2018-07-01] MEDS: Magnesium Oxide 400 MG Tablet PO ×2 (10:36→21:57)
[2018-07-01] MEDS: Aspirin E.C. 81 MG Tablet PO (10:36)
[2018-07-01] MEDS: Clopidogrel Bisulfate 75 MG Tablet PO (10:36)
[2018-07-01] MEDS: Enoxaparin 40 MG/0.4 ML Syringe SC (10:40)
[2018-07-01] MEDS: Insulin Lispro 100 UNIT/ML INSULN.PEN 10 UNIT SQ ×2 (10:43→16:07)
[2018-07-01] MEDS: Isosorbide DN 30 MG Tablet PO (10:46)
[2018-07-01] MEDS: Venlafaxine XR 150 MG Capsule PO (10:46)
[2018-07-01] MEDS: Ranolazine 500 MG Tablet PO (10:46)
[2018-07-01] MEDS: Pregabalin 50 MG Capsule PO ×2 (10:59→22:07)
--- NOTE | 2018-07-01 12:48 | PCM.PROGNOTE ---
<Linda Galo - Last Filed: 07/01/18 13:08> Patient Problems: Active and Suspected Problems (Last Reviewed 04/26/18 @ 10:27 by Ema Henderson) Lumbar back pain (Acute) Chest pain (Acute) Subjective: Patient seen and examined. Complains of intractable back pain and muscle spasms. Chest pain currently resolved. Patient reports prior to admission she was walking to her apartment when she developed chest pain. She reports she initially thought it was pain radiating from her back however chest pain worsened. - Physical Exam General: Alert, Oriented x3, Cooperative HEENT: Atraumatic, PERRLA, EOMI, Normocephalic Neck: Supple, No JVD, Negative Carotid Bruits Lungs: Clear to auscultation, Normal air movement Cardiovascular: Regular rate, Regular Rhythm, Normal S1, Normal S2, No murmurs Abdomen: Bowel Sounds Present, Soft, Non Tender, Non-Distended, - - Ileostomy intact Extremities: No clubbing, No cyanosis, No edema, Capillary Refill Less than 3 Seconds Skin: No rashes, No breakdown Musculoskeletal: No Tenderness to Palpation of Joints or Extremities Neurological: Cranial nerves II-XII grossly intact, Neuro grossly intact Psych/Mental Status: Restless Vital Signs Temp Pulse Resp BP Pulse Ox 98.1 F 82 16 148/56 H 96 07/01/18 08:46 07/01/18 12:46 07/01/18 08:48 07/01/18 10:51 07/01/18 08:48 Oxygen Delivery Method Room Air Weight: 200 lb 2.876 oz Body Mass Index (BMI) 31.3 Finger Stick Blood Glucose 348 Intake and Output for Last 24 Hours 06/29/18 06/30/18 07/01/18 23:59 23:59 23:59 Intake Total 378 / 378 724 / 724 Balance 378 / 378 724 / 724 Laboratory Tests Past 24 Hrs 06/30/18 06/30/18 06/30/18 17:55 17:55 17:55 WBC 9.1 RBC 4.71 Hgb 13.7 Hct 40.8 MCV 86.6 MCH 29.1 MCHC 33.6 RDW 15.7 H RDW Differential 50.3 H Plt Count 172 MPV 12.4 H Immature Gran % (Auto) 0.300 Neut % (Auto) 63.1 Lymph % (Auto) 25.7 [place] % (Auto) 4.4 Eos % (Auto) 6.3 H Baso % (Auto) 0.2 Absolute Neuts (auto) 5.7 Absolute Lymphs (auto) 2.33 Total Counted Not Reportable Sodium 139 Potassium 4.5 Chloride 105 Carbon Dioxide 27.0 Anion Gap 7 BUN 25 H Creatinine 1.48 H Estim Creat Clear Calc 39.80 Est GFR (MDRD) Af Amer 46 L Est GFR (MDRD) Non-Af 38 L BUN/Creatinine Ratio 16.9 Glucose 398 H Calcium 8.7 Troponin I < 0.015 B-Natriuretic Peptide 34.2 06/30/18 07/01/18 07/01/18 21:53 00:46 04:44 WBC 7.3 RBC 4.68 Hgb 13.2 Hct 40.5 MCV 86.5 MCH 28.2 MCHC 32.6 RDW 15.8 H RDW Differential 49.1 H Plt Count 154 MPV 12.9 H Immature Gran % (Auto) 0.700 Neut % (Auto) 51.1 Lymph % (Auto) 33.6 [place] % (Auto) 6.3 Eos % (Auto) 8.0 H Baso % (Auto) 0.3 Absolute Neuts (auto) 3.7 Absolute Lymphs (auto) 2.44 Total Counted Not Reportable Sodium Potassium Chloride Carbon Dioxide Anion Gap BUN Creatinine Estim Creat Clear Calc Est GFR (MDRD) Af Amer Est GFR (MDRD) Non-Af BUN/Creatinine Ratio Glucose Calcium Troponin I < 0.015 < 0.015 B-Natriuretic Peptide 07/01/18 04:44 WBC RBC Hgb Hct MCV MCH MCHC RDW RDW Differential Plt Count MPV Immature Gran % (Auto) Neut % (Auto) Lymph % (Auto) [place] % (Auto) Eos % (Auto) Baso % (Auto) Absolute Neuts (auto) Absolute Lymphs (auto) Total Counted Sodium 143 Potassium 4.0 Chloride 109 H Carbon Dioxide 25.0 Anion Gap 9 BUN 19 H Creatinine 1.20 H Estim Creat Clear Calc 49.09 Est GFR (MDRD) Af Amer 59 L Est GFR (MDRD) Non-Af 49 L BUN/Creatinine Ratio 15.8 Glucose 160 H Calcium 8.4 L Troponin I B-Natriuretic Peptide POC Glucose 07/01/18 07/01/18 10:30 06:40 POC Glucose 291 H 177 H Medical Necessity - Tobacco Use Smoking Status: Former smoker Assessment/Plan All Active Problems (Last Reviewed 04/26/18 @ 10:27 by Ema Henderson) Lumbar back pain (Acute) Chest pain (Acute) H/O coronary artery bypass surgery (Resolved 05/18/12) History of coronary artery stent placement (Resolved 01/12/18) Acute pancreatitis (Resolved) Abdominal pain (Acute) Chest pain (Resolved) Hypokalemia (Resolved) 1. Chest pain with history of CAD status post multiple stents and four-vessel CABG- Follows with Dr. Menon. Cardiology consult placed. Troponin negative. EKG without ST-T changes. Echocardiogram shows an EF of 65%, mild to moderate pulmonic valve insufficiency, mild mitral valve insufficiency. Possible stress test pending cardiology evaluation. Continue aspirin, statin, Plavix, metoprolol, isosorbide. Patient had cardiac catheterization 01/12/2018 with PTCA to mid diagonal #1. There was noted consideration of complex PCI to [place] if patient had continued symptoms. 2. Acute on chronic intractable back pain- Follows with Dr. Wright. Consult placed however Dr. Wright is out until Wednesday. Continue home Lyrica, baclofen, tramadol regimen. Buprenorphine patch being held. As needed oxir for pain. Lumbar spine MRI shows multilevel degenerative disease. Moderate right foraminal stenosis at L4-L5. Continue outpatient follow-up with pain management. She reports she was seen by a neurosurgeon and reported not to be a candidate for surgery. PT/OT. 3. Hypertension-stable, continue isosorbide, metoprolol regimen. 4. Hyperlipidemia-continue statin. 5. Type 2 diabetes [id number] ACHS with sliding scale insulin. Continue home long-acting and scheduled Humalog regimen. 6. Chronic kidney disease stage III-at baseline, trend BMP. 7. Ulcerative colitis status post ileostomy 8. Psoriasis-continue outpatient follow-up with dermatology. 9. Depression-continue Effexor regimen. 10. Obesity-encourage diet and lifestyle modifications. DVT prophylaxis-Lovenox subcu This patient was seen by DERIC Gonzales under the supervision of Dr. Etienne. <Michael Etienne - Last Filed: 07/01/18 15:04> - Physical Exam Vital Signs Temp Pulse Resp BP Pulse Ox 98 F 68 18 148/56 H 93 07/01/18 14:58 07/01/18 14:58 07/01/18 14:58 07/01/18 14:58 07/01/18 14:58 Oxygen Delivery Method Room Air Weight: 90.8 kg Body Mass Index (BMI) 31.3 Finger Stick Blood Glucose 348 Intake and Output for Last 24 Hours 06/29/18 06/30/18 07/01/18 23:59 23:59 23:59 Intake Total 378 / 378 724 / 724 Balance 378 / 378 724 / 724 Laboratory Tests Past 24 Hrs 06/30/18 06/30/18 06/30/18 17:55 17:55 17:55 WBC 9.1 RBC 4.71 Hgb 13.7 Hct 40.8 MCV 86.6 MCH 29.1 MCHC 33.6 RDW 15.7 H RDW Differential 50.3 H Plt Count 172 MPV 12.4 H Immature Gran % (Auto) 0.300 Neut % (Auto) 63.1 Lymph % (Auto) 25.7 [place] % (Auto) 4.4 Eos % (Auto) 6.3 H Baso % (Auto) 0.2 Absolute Neuts (auto) 5.7 Absolute Lymphs (auto) 2.33 Total Counted Not Reportable Sodium 139 Potassium 4.5 Chloride 105 Carbon Dioxide 27.0 Anion Gap 7 BUN 25 H Creatinine 1.48 H Estim Creat Clear Calc 39.80 Est GFR (MDRD) Af Amer 46 L Est GFR (MDRD) Non-Af 38 L BUN/Creatinine Ratio 16.9 Glucose 398 H Calcium 8.7 Troponin I < 0.015 B-Natriuretic Peptide 34.2 06/30/18 07/01/18 07/01/18 21:53 00:46 04:44 WBC 7.3 RBC 4.68 Hgb 13.2 Hct 40.5 MCV 86.5 MCH 28.2 MCHC 32.6 RDW 15.8 H RDW Differential 49.1 H Plt Count 154 MPV 12.9 H Immature Gran % (Auto) 0.700 Neut % (Auto) 51.1 Lymph % (Auto) 33.6 [place] % (Auto) 6.3 Eos % (Auto) 8.0 H Baso % (Auto) 0.3 Absolute Neuts (auto) 3.7 Absolute Lymphs (auto) 2.44 Total Counted Not Reportable Sodium Potassium Chloride Carbon Dioxide Anion Gap BUN Creatinine Estim Creat Clear Calc Est GFR (MDRD) Af Amer Est GFR (MDRD) Non-Af BUN/Creatinine Ratio Glucose Calcium Troponin I < 0.015 < 0.015 B-Natriuretic Peptide 07/01/18 04:44 WBC RBC Hgb Hct MCV MCH MCHC RDW RDW Differential Plt Count MPV Immature Gran % (Auto) Neut % (Auto) Lymph % (Auto) [place] % (Auto) Eos % (Auto) Baso % (Auto) Absolute Neuts (auto) Absolute Lymphs (auto) Total Counted Sodium 143 Potassium 4.0 Chloride 109 H Carbon Dioxide 25.0 Anion Gap 9 BUN 19 H Creatinine 1.20 H Estim Creat Clear Calc 49.09 Est GFR (MDRD) Af Amer 59 L Est GFR (MDRD) Non-Af 49 L BUN/Creatinine Ratio 15.8 Glucose 160 H Calcium 8.4 L Troponin I B-Natriuretic Peptide POC Glucose 07/01/18 07/01/18 10:30 06:40 POC Glucose 291 H 177 H Assessment/Plan This patient was seen in conjunction with DERIC Gonzales . I have independently interviewed and examined the patient and reviewed pertinent historical, laboratory, and other data. Please refer to DERIC Gonzales note for details of this patient's presentation, findings, and recommendations. I have reviewed DERIC Gonzales note and concur with documented findings. In brief, patient is a 57-year-old lady with multiple comorbidities including CAD with previous CABG and subsequent PCI, diabetes mellitus type 2, hypertension who presented with chest discomfort as well as intractable back pain Physical Examination: GENERAL: cooperative HEENT: Atraumatic; moist oral mucosa EYES; Anicteric, Normal Conjunctiva NECK; supple, normal thyroid, no distended JVD. RESPIRATORY: Diminished to auscultation bilaterally, CARDIOVASCULAR: Regular S1 S2, no audible murmurs NEURO: Awake; no lateralizing signs. SKIN: No Rash PSYCH; Normal affect Assessment: 1. Chest pain 2. CAD with previous CABG and subsequent PCI 3. Chronic back pain 4. Dyslipidemia 5. Ulcerative colitis with ileostomy 6. Essential hypertension 7. Pulmonary hypertension 8. Diabetes mellitus type 2 with complication including diabetic nephropathy 9. Chronic kidney disease stage III 10. Obesity with BMI of 31.4 11. Depression with anxiety 12. DVT prophylaxis Lovenox Recommendations: 1. I have discussed the results of my overview and impressions with the patient 2. Options for management were reviewed Code Visit Inpatient E&M: 27775 Subs Hosp L3
--- NOTE | 2018-07-01 12:58 | CASEMGMT ---
SW spoke with patient, introduced self and role at [facility]. SW gave her information on Passport as she will be turning 58 July 16 of this year. May AGOSTO MSW
--- NOTE | 2018-07-01 14:00 | PCM.CONS.C ---
Problem List (1) Chest pain Status: Acute (2) CAD (coronary artery disease) Status: Chronic Qualifiers: [place] vs. transplanted heart: [place] heart (3) History of coronary artery stent placement Status: Resolved Comment: PCI-CLINTON mid D1 with a 2.25 x 12 Promus Synergy 01/12/2018 Mid LAD and Cx 08/30/2012, D1 and prox OM1 09/14/12, Prox SVG, Distal SVG to the Mid OM 10/31/2012 (4) H/O coronary artery bypass surgery Status: Resolved Comment: CABG x 4 JONES-LAD, SVG-D1, SVG-OM1, SVG-LPDA 05/18/2012 (5) Hyperlipidemia Status: Chronic Qualifiers: (6) Essential (primary) hypertension Status: Chronic (7) DM2 (diabetes mellitus, type 2) Status: Chronic Qualifiers: (8) COPD (chronic obstructive pulmonary disease) Status: Chronic (9) Pulmonary hypertension Status: Chronic (10) Chronic renal insufficiency Status: Chronic Qualifiers: (11) Lumbar back pain Status: Acute Reason for Consult Date of Consultation: 07/01/18 History of Present Illness: The patient is a 57 year old white female with a past medical history of CAD, PCI, CABG, hyperlipidemia, hypertension, diabetes mellitus, COPD, coronary hypertension, and chronic renal insufficiency who presented originally for evaluation of back discomfort but complained of her chronic chest discomfort. She states that she has had chronic chest discomfort which she feels a bored like discomfort across her chest. She also notes that she has, at the lower end of her sternal incision a burning sensation. Her symptoms occur both at rest and with activity. However she notes her activity has been limited recently based upon her ongoing back discomfort. There is been no orthopnea or PND or peripheral pitting edema. There is been no near syncope or syncope. She was evaluated recently in the outpatient setting and her medications were adjusted. At that time there was no immediate plan for additional noninvasive or invasive cardiovascular studies. She states she has been continuing evaluation under pain management for her chronic back discomfort. She was told that she may need some type of implantable device but that is on hold based upon her inability to interrupt her antiplatelet therapy with clopidogrel/Plavix. She states it was her back discomfort that brought her to the hospital she was seeking relief of her back discomfort. After she was here she noted her chronic chest discomfort. Additional evaluation was performed with cardiac enzymes. Her troponin I levels were negative. An ECG demonstrated sinus rhythm with T wave changes compatible with myocardial ischemia in the anterolateral distributions. However these changes are similar to previous changes based on previous ECGs from 2018. She has also undergone evaluation with a transthoracic echocardiogram. The results are as noted below. Of note her overall LV systolic function remains preserved. [] Past Medical History Allergies/Adverse Reactions: Allergies cinnamon [Cinnamon] Allergy (Verified 06/30/18 18:01) Anaphylaxis Influenza Virus Vaccines Allergy (Verified 06/30/18 18:01) Shortness of breath liraglutide [From Victoza] Allergy (Verified 06/30/18 18:01) Anaphylaxis metronidazole [From Flagyl] Allergy (Verified 06/30/18 18:01) Hives Metronidazole HCl [From Flagyl] Allergy (Verified 06/30/18 18:01) Hives Penicillins Allergy (Verified 06/30/18 18:01) Hives Sulfa (Sulfonamide Antibiotics) Allergy (Verified 06/30/18 18:01) Hives ciprofloxacin [From Cipro] Adverse Reaction (Verified 06/30/18 18:01) Nausea codeine Adverse Reaction (Verified 06/30/18 18:01) Stops Ileostomy dicyclomine HCl [From Bentyl] Adverse Reaction (Verified 06/30/18 18:01) Nausea metformin HCl [From Glucophage] Adverse Reaction (Verified 06/30/18 18:01) Nausea Lyxxxtb-Dgg-Kza Reductase Inhibitor Adverse Reaction (Verified 06/30/18 18:01) Nausea/joints ache Home Medications: Ambulatory Orders Medication Instructions Recorded tramadol 50 mg tablet 50 mg PO BID PRN PRN tab 05/05/17 Furosemide [Lasix] 40 mg PO QODAY 07/07/17 insulin glargine (U-100) 100 80 units SC BID ml 09/02/17 unit/mL (3 mL) subcutaneous pen magnesium oxide 400 mg (241.3 mg 400 mg PO BID #60 tab 09/21/17 magnesium) tablet metoprolol tartrate 50 mg tablet 75 mg PO BID #90 tab 09/21/17 buprenorphine 7.5 mcg/hour weekly 1 patch TRANSDERMAL FR 10/18/17 transdermal patch omeprazole 20 mg capsule,delayed 20 mg PO DAILY #90 cap 10/19/17 release Aspirin E.C. [Ecotrin] 81 mg PO DAILY 01/11/18 insulin aspart (U-100) 100 unit/mL See Rx Instructions SC .COMPLEX 02/01/18 (3 mL) subcutaneous pen #30 ml atorvastatin 80 mg tablet 80 mg PO QHS #30 tab 02/09/18 miconazole nitrate 2 % topical 1 applic TOPICAL DAILY #85 g 02/09/18 powder nitroglycerin 0.4 mg sublingual 0.4 mg SUBLINGUAL Q5M PRN #25 tab 02/18/18 tablet calcium carbonate 600 mg calcium 600 mg PO BID #60 tab 04/20/18 (1,500 mg) tablet ondansetron 4 mg disintegrating 4 mg PO BID-TID PRN #30 tab 04/26/18 tablet promethazine 12.5 mg tablet 12.5 mg PO TID PRN #20 tab 04/26/18 clopidogrel 75 mg tablet 75 mg PO DAILY #30 tab 06/20/18 isosorbide dinitrate 30 mg tablet 30 mg PO BID tab 06/20/18 lorazepam 0.5 mg tablet 0.25 mg PO QHS PRN #15 tab 06/27/18 pregabalin 50 mg capsule 50 mg PO BID #60 cap 06/27/18 Baclofen [Lioresal] 10 mg PO DAILY 06/30/18 Cholecalciferol (Vitamin D3) 2,000 unit PO DAILY 06/30/18 [D3-2000] Hydrocortisone 1% Crm [Hytone] 1 applic TOPICAL BID 06/30/18 Loperamide [Imodium] 2 mg PO PRN PRN 06/30/18 Metoprolol Tartrate [Lopressor 25 mg PO BID 06/30/18 (beta esha)] Ranolazine [Ranexa] 500 mg PO BID 06/30/18 Venlafaxine XR [Effexor Xr] 150 mg PO DAILY 06/30/18 Past Medical History (Chronic Problems): Chronic Problems (Last Reviewed 04/26/18 @ 10:27 by Ema Henderson) CAD (coronary artery disease) (Chronic) Arthritis (Chronic) Essential (primary) hypertension (Chronic) Atherosclerosis of coronary artery bypass graft without angina pectoris (Chronic) CABG x 4 JONES-LAD, SVG-D1, SVG-OM1, SVG-LPDA 05/18/2012 PCI-CLINTON mid D1 with a 2.25 x 12 Promus Synergy 01/12/2018 Mid LAD and Cx 08/30/2012, D1 and prox OM1 09/14/12, Prox SVG, Distal SVG to the Mid OM 10/31/2012 Depression (Chronic) FCHL (familial combined hyperlipidemia) (Chronic) Ulcerative colitis (Chronic) Status post ileostomy Pulmonary hypertension (Chronic) Chronic respiratory failure (Chronic) COPD (chronic obstructive pulmonary disease) (Chronic) Anemia of chronic renal failure, stage 3 (moderate) (Chronic) Obstructive sleep apnea (Chronic) Psoriasis (Chronic) Heart failure with preserved ejection fraction (Chronic) Ileostomy status (Chronic) Surgical wound dehiscence (Chronic) Shortness of breath (Chronic) Multiple falls (Chronic) Right thyroid nodule (Chronic) 1.4 centimeter right sided nodule on CT scan Thyroid mass (Chronic) Syncope (Chronic) Vertigo (Chronic) Chronic renal insufficiency (Chronic) Sleep apnea (Chronic) [place] disease (Chronic) Ulcerative colitis (Chronic) Hyperlipidemia (Chronic) DM2 (diabetes mellitus, type 2) (Chronic) Surgical History: angioplasty, coronary bypass surgery, hysterectomy, - Psychiatric History: Anxiety, Depression 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: No pertinent INSTRUCTIONAL TECHNOLOGY FACILITATOR history - *Family History Maternal Family History: Family History (Last Reviewed 04/26/18 @ 10:27 by Ema Henderson) Mother CVA (cerebral vascular accident) Diabetes Brother Heart disease Myocardial infarction Pancreatitis Father Cancer Lymphoma Grandmother Myocardial infarction Sister COPD (chronic obstructive pulmonary disease) History Items: Heart Disease, - - No autoimmune disease that she is aware of Paternal Family History: Family History (Last Reviewed 04/26/18 @ 10:27 by Ema Henderson) Mother CVA (cerebral vascular accident) Diabetes Brother Heart disease Myocardial infarction Pancreatitis Father Cancer Lymphoma Grandmother Myocardial infarction Sister COPD (chronic obstructive pulmonary disease) History Items: Cancer - Father has H/o lymphoma, - - No autoimmune disease that she is aware of Smoking Status: Former smoker Review of Systems - Review of Systems General: Denies: Fever, Night Sweats, Fatigue Cardiovascular: Reports: Chest Discomfort. Denies: Shortness of Breath, Orthopnea, PND, Peripheral Edema, Palpitations, Lightheadedness, Dizziness, Near Syncope, Syncope Respiratory: Denies: Cough, Sputum Production, Hemoptysis Gastrointestinal: Denies: Hematemesis, Hematochezia, Melena Genitourinary: Denies: Dysuria, Hematuria Muscoloskeletal: Reports: Back Pain Skin: Denies: Rash Subjectve: This is a 57-year-old white male who appears to be resting comfortably at the moment in no acute distress. Objective: Vital Signs Temp Pulse Resp BP Pulse Ox 98.1 F 82 16 148/56 H 96 07/01/18 08:46 07/01/18 12:46 07/01/18 08:48 07/01/18 10:51 07/01/18 08:48 Oxygen Delivery Method Room Air Weight: 200 lb 2.876 oz Body Mass Index (BMI) 31.3 Finger Stick Blood Glucose 348 Intake and Output for Last 24 Hours 06/29/18 06/30/18 07/01/18 23:59 23:59 23:59 Intake Total 378 / 378 724 / 724 Balance 378 / 378 724 / 724 General: Awake, Alert, Oriented x 3, Cooperative, No Acute Distress HEENT: Atraumatic, Normocephalic, PERRL, EOMI, Sclera Non Icteric Oral: Moist Mucosa Neck: Supple, Good ROM, No JVD Chest Wall: - - Tenderness to palpation over the distal/inferior portion of her sternotomy incision Lungs: Clear to auscultation Cardiovascular: Regular Rhythm, Normal S1, Normal S2 Vascular: No Carotid Bruits Abdomen: Bowel Sounds Present, Soft, Non Tender Extremities: No edema Psych/Mental Status: Appropriate 06/30/18 17:55: WBC 9.1, RBC 4.71, Hgb 13.7, Hct 40.8, MCV 86.6, MCH 29.1, MCHC 33.6, RDW 15.7 H, RDW Differential 50.3 H, Plt Count 172, MPV 12.4 H, Immature Gran % (Auto) 0.300, Neut % (Auto) 63.1, Lymph % (Auto) 25.7, [place] % (Auto) 4.4, Eos % (Auto) 6.3 H, Baso % (Auto) 0.2, Absolute Neuts (auto) 5.7, Total Counted Not Reportable 06/30/18 17:55: Sodium 139, Potassium 4.5, Chloride 105, Carbon Dioxide 27.0, Anion Gap 7, BUN 25 H, Creatinine 1.48 H, Est GFR (MDRD) Af Amer 46 L, Est GFR (MDRD) Non-Af 38 L, BUN/Creatinine Ratio 16.9, Glucose 398 H, Calcium 8.7, Troponin I < 0.015 06/30/18 17:55: B-Natriuretic Peptide 34.2 06/30/18 21:53: Troponin I < 0.015 07/01/18 00:46: Troponin I < 0.015 07/01/18 04:44: WBC 7.3, RBC 4.68, Hgb 13.2, Hct 40.5, MCV 86.5, MCH 28.2, MCHC 32.6, RDW 15.8 H, RDW Differential 49.1 H, Plt Count 154, MPV 12.9 H, Immature Gran % (Auto) 0.700, Neut % (Auto) 51.1, Lymph % (Auto) 33.6, [place] % (Auto) 6.3, Eos % (Auto) 8.0 H, Baso % (Auto) 0.3, Absolute Neuts (auto) 3.7, Total Counted Not Reportable 07/01/18 04:44: Sodium 143, Potassium 4.0, Chloride 109 H, Carbon Dioxide 25.0, Anion Gap 9, BUN 19 H, Creatinine 1.20 H, Est GFR (MDRD) Af Amer 59 L, Est GFR (MDRD) Non-Af 49 L, BUN/Creatinine Ratio 15.8, Glucose 160 H, Calcium 8.4 L Rhythm: Sinus rhythm EKG: As noted above ECHO: Interpretation Summary The study was technically difficult. Contrast injection was performed. Left ventricular systolic function is normal. The estimated ejection fraction is 65 %. Mild concentric left ventricular hypertrophy. The left atrium is mildly enlarged. Mild focal mitral valve calcification of the anterior leaflet. Mild (1+) mitral valve insufficiency. Trivial tricuspid valve insufficiency. Mild-Moderate (1-2+) pulmonic valve insufficiency. Unable to estimate RV systolic pressure/pulmonary artery pressure due to technically difficult study. Diastolic function is indeterminate. Stress Test: 07-08-17 Procedure: Pharmacologic stress nuclear imaging study Indications: Chest pain Consent: Per the patient Procedure: The patient underwent pharmacologic (Regadenoson) evaluation with a peak heart rate of 85 beats per minute (50 predicted maximal heart rate) and a peak blood pressure of 140/72 mmHg. The baseline ECG demonstrated normal sinus rhythm with nonspecific ST/T-wave abnormality. The peak pharmacologic ECG demonstrated ECG changes. There were no cardiac dysrhythmias pretest, during pharmacologic infusion, or recovery. There was no complaint of chest discomfort during pharmacologic infusion or recovery. The examination was discontinued secondary to completion of protocol. Impression: 1. Pharmacologic (Regadenoson) evaluation 2. Peak pharmacologic ECG with no obvious ECG changes. 3. Cardiac dysrhythmias pretest, during pharmacologic infusion, or recovery 4. Nuclear images pending Myocardial perfusion imaging study: Technique: The patient was injected with 11.7 millicuries of technetium 99m Cardiolite and subsequently rest SPECT Cardiolite nuclear imaging was obtained in the horizontal long, vertical long, and short axis views. The patient underwent pharmacologic (Regadenoson) evaluation with a peak heart rate of 85 beats per minute (50 % percent predicted maximal heart rate) and a peak blood pressure of 140/72 mmHg. The patient was injected with 33.8 millicuries of technetium 99m Cardiolite and subsequently stress SPECT Cardiolite nuclear imaging was obtained in the horizontal long, vertical long, and short axis views. A gated Cardiolite study at peak stress was obtained. Interpretation: Rest and stress SPECT Cardiolite nuclear imaging status post realignment, normalization, and attenuation correction demonstrate relative uniform tracer uptake and myocardial perfusion appearing within normal limits. There is end systolic thickening and brightening. The gated Cardiolite study demonstrates myocardial thickening and inward wall motion. The reported LVEF is 68 %. Impression: 1. Rest and stress SPECT Cardiolite nuclear imaging demonstrate relative uniform tracer uptake and myocardial perfusion appearing within normal limits. 2. The gated Cardiolite study reports an LVEF of 68 %. Cardiac Cath/PCI: 01-12-18 CORONARY ANGIOGRAPHY DOMINANCE: Left Dominant LEFT HEART ASSESSMENT Left Ventricular Ejection Fraction: by LV Gram 75 % Normal Left Ventricular systolic function Left Ventricular Hypertrophy LVEDP: 20 mmHg Normal LV wall motion LEFT MAIN: No significant disease noted LEFT ANTERIOR DECENDING ARTERY: PROX LAD: Previously placed stent is patent DIAGONAL 1: Proximal - Previously placed stent is patent, Mid - 85 % Stenosis CIRCUMFLEX ARTERY: Mild luminal irregularities less than 30% OM 1: Mid - 50 % Stenosis GRAFTS: JONES graft to the Mid LAD is patent Saphenous Vein graft to the 1st Diagonal is totally occluded Saphenous Vein graft to the 1st OM is totally occluded Saphenous Vein graft to the LPDA is totally occluded INTERVENTION INFORMATION LESION SITE: 1st Diagonal (Mid) Lesion Complexity: Non-High/Non-C, lesion at bifurcation: Yes, thrombus present: No, culprit lesion: Yes Pre Stenosis: 85 % Pre intervention JAMAAL flow: 3 PROCEDURE: Drug Eluting Stent with pre and post dilatation Post Stenosis: 0 % Post intervention JAMAAL flow: 3 CT Surgery: 05-18-2012: JONES to the LAD; SVG to diagonal branch; SVG to the OM; SVG to the left PDA CXR: Preliminary evaluation: Post open heart surgery changes: No acute cardia pulmonary disease process appreciated: Please see official report Assessment/Plan 1. Chest pain At the present time she does have her chronic chest discomfort. It waxes and wanes. She is undergone noninvasive evaluation as described above. Thus far there is no evidence of an acute coronary syndrome event. At the present time she will continue medical management. Attempt will be made to optimize her medications by increasing her nitrate dose and her Ranexa dose. It may not be unreasonable to consider a follow-up pharmacologic stress nuclear imaging study to assess for any obvious changes that would warrant repeat cardiac catheterization sooner than later. If such as study is unremarkable and she continues to have concerning chest discomfort despite optimization of her medications then she may need to be considered for repeat cardiac catheterization despite an unremarkable appearing stress test. If her stress test appears concerning then she does need to be considered for cardiac catheterization sooner than later. 2. CAD status post PCI status post CABG She has had extensive underlying [place] vessel disease and graft vessel disease. She has continued medical management. She is undergone revascularization procedures as previously noted. She will continue evaluation as described above. 3. Hyperlipidemia She will continue risk factor modification medical management. 4. Hypertension She will continue medical management and follow-up. 5. Diabetes mellitus She will need to continue valuation care per her primary care physicians. 6. COPD She does have a history of COPD. Again she will continue evaluation care by her primary care physicians. 7. Pulmonary hypertension She reportedly has a history of pulmonary hypertension. Attempt was going to estimate her right sided/pulmonary pressures with a transthoracic echocardiogram. Due to the technically challenging study this was unable to be performed. 8. Chronic renal insufficiency She does have chronic renal insufficiency. This would have to be taken into consideration if she were to undergo another invasive procedure with IV contrast. 9. Back discomfort She has been following with pain management for her chronic back discomfort. A pain pump was suggested however it was placed on hold based upon not wanting to interrupt her antiplatelet therapy status post her stent placement in January 2018. Comment: The patient's case was discussed and reviewed with the patient and the [facility] staff. This note was generated with [employer] dictation software. It may contain incorrect words, spelling, and punctuation that were not noted in checking the note before signing.
[2018-07-01] MEDS: 0.9% Normal Saline 1,000 ML 100 ML IV (15:12)
[2018-07-01 16:30] LABS: Bedside Glucose 406 mg/dL (70-110)
[2018-07-01] MEDS: Ondansetron ODT 4 MG Tablet PO (20:05)
[2018-07-01] MEDS: Ranolazine 500 MG Tablet 1000 MG PO (21:56)
[2018-07-01] MEDS: Atorvastatin Calcium 80 MG Tablet PO (21:56)
[2018-07-01] MEDS: Isosorbide DN 30 MG Tablet 60 MG PO (21:56)
[2018-07-01] MEDS: Metoprolol Tartrate 50 MG Tablet PO (21:59)
[2018-07-01] MEDS: Metoprolol Tartrate 25 MG Tablet PO (21:59)
[2018-07-01] MEDS: LORazepam 0.5 MG Tablet 0.25 MG PO (22:06)
[2018-07-01 22:46] LABS: Bedside Glucose 364 mg/dL (70-110)
[2018-07-02] MEDS: 0.9% Normal Saline 1,000 ML 100 ML IV (00:18)
[2018-07-02 03:01] VITALS: PULSE 67
[2018-07-02 03:29] VITALS: BP 115/58; PULSE 71; RESP 16; TEMP 36.7; O2SAT 93
--- NOTE | 2018-07-02 05:04 | EKG12_ITS ---
Test Reason : AM EKG Blood Pressure : / mmHG Vent. Rate : 067 BPM Atrial Rate : 067 BPM P-R Int : 176 ms QRS Dur : 090 ms QT Int : 420 ms P-R-T Axes : 034 -18 144 degrees QTc Int : 443 ms Normal sinus rhythm ST & T wave abnormality, consider anterolateral ischemia Abnormal ECG Confirmed by COURTNEY DOMINGUEZ, NIXON ([id number]), online content editor MALIK HULL ([id number] on 07/06/2018 9:55:22 AM Referred By: TAMI Confirmed By:NIXON VALDEZ MD
--- NOTE | 2018-07-02 05:55 | EKG12_ITS ---
Test Reason : CP ADMISSION Blood Pressure : / mmHG Vent. Rate : 072 BPM Atrial Rate : 072 BPM P-R Int : 162 ms QRS Dur : 090 ms QT Int : 384 ms P-R-T Axes : 041 -18 157 degrees QTc Int : 420 ms Normal sinus rhythm Left ventricular hypertrophy Nonspecific ST/T Wave Abnormality Abnormal ECG Confirmed by COURTNEY DOMINGUEZ, NIXON ([id number]), mapping editor ISABELLA BUTLER ([id number]) on 07/04/2018 12:26:19 PM Referred By: EJ Confirmed By:NIXON VALDEZ MD
[2018-07-02 06:29] VITALS: BP 122/61; PULSE 70; RESP 16; TEMP 36.8; O2SAT 93
[2018-07-02] MEDS: Clopidogrel Bisulfate 75 MG Tablet PO (06:33)
[2018-07-02] MEDS: Aspirin E.C. 81 MG Tablet PO (06:33)
[2018-07-02 07:00] VITALS: PULSE 67
[2018-07-02 07:11] LABS: Bedside Glucose 207 mg/dL (70-110)
[2018-07-02 07:50] LABS: Absolute Lymphocyte Count 2.21 X10^3/ul (0.83-4.51); Absolute Neutrophil Count 2.9 X10^3/uL (2.0-7.7); Basophil# 0.02 X10^3/uL; Basophil% 0.3 % (0-1); Eosinophil# 0.49 X10^3/uL; Eosinophils% 8.1 % (0-5); Hematocrit 35.4 % (37-47); Hemoglobin 11.3 g/dl (12.0-15.0); Lymphocyte # 2.21 X10^3/ul (4.0); Lymphocyte % 36.3 % (19-41); Mean Corp Hgb Conc 31.9 g/gl (32-36); Mean Corpuscular Hgb 28.1 pg (27.0-32.0); Mean Corpuscular Volume 88.1 fL (81-99); Mean Platelet Vol. 12.4 fl (6.2-12.0); Monocyte# 0.43 X10^3/uL; Monocyte% 7.1 % (0-10); Neutrophil # 2.87 X10^3/uL (2.7-7.7); Neutrophil % 47.2 % (47-70); Platelet Count 147 K/mm3 (150-450); RBC Distribution Width CV 15.6 % (11.6-14.6); RBC Distribution Width SD 50.7 fl (35.1-43.9); Red Blood Count 4.02 M/mm3 (4.2-5.4); White Blood Count 6.1 K/mm3 (4.4-11.0)
[2018-07-02 08:02] LABS: POSITIVE COUNT NO; POSITIVE DIFFERENTIAL NO; POSITIVE MORPHOLOGY NO
[2018-07-02 08:06] LABS: International Normalized Ratio 1.1; Partial Thromboplast Time 29.9 Seconds (24.1-36.2); Prothrombin Time (Protime)PT. 13.9 SECONDS (11.7-14.9)
[2018-07-02 08:18] LABS: Anion Gap 6 (5-15); BUN 19 mg/dL (7-18); Calcium,Total 8.2 mg/dL (8.5-10.1); Chloride 107 mmol/L (98-107); Creatinine, Serum 1.27 mg/dL (0.55-1.02); EST Glomerular Filtration Rate 46 mL/min (>60); Est Glom Filt Rate - Afr Amer 55 mL/min (>60); Estimated Creatinine Clearance 46.38 ml/min; Glucose 215 mg/dL (74-106); Potassium 4.4 mmol/L (3.5-5.1); Sodium Level 141 mmol/L (136-145)
--- NOTE | 2018-07-02 11:09 | DCINST_ITS ---
- Discharge Diagnoses Current Active Problems: Current Active and Chronic Problems (Last Reviewed 04/26/18 @ 10:27 by Ema Henderson) Lumbar back pain (Acute) Chest pain (Acute) CAD (coronary artery disease) (Chronic) You will use the following diet at home:: Cardiac Discharge Activity: Return to Normal Activity Call your doctor if you observe: Shortness of breath, Dizziness, Fainting spells, Chest pain Allergies/Adverse Reactions: Allergies cinnamon [Cinnamon] Allergy (Verified 06/30/18 18:01) Anaphylaxis Influenza Virus Vaccines Allergy (Verified 06/30/18 18:01) Shortness of breath liraglutide [From Victoza] Allergy (Verified 06/30/18 18:01) Anaphylaxis metronidazole [From Flagyl] Allergy (Verified 06/30/18 18:01) Hives Metronidazole HCl [From Flagyl] Allergy (Verified 06/30/18 18:01) Hives Penicillins Allergy (Verified 06/30/18 18:01) Hives Sulfa (Sulfonamide Antibiotics) Allergy (Verified 06/30/18 18:01) Hives ciprofloxacin [From Cipro] Adverse Reaction (Verified 06/30/18 18:01) Nausea codeine Adverse Reaction (Verified 06/30/18 18:01) Stops Ileostomy dicyclomine HCl [From Bentyl] Adverse Reaction (Verified 06/30/18 18:01) Nausea metformin HCl [From Glucophage] Adverse Reaction (Verified 06/30/18 18:01) Nausea Enbbjad-Gjz-Oua Reductase Inhibitor Adverse Reaction (Verified 06/30/18 18:01) Nausea/joints ache Medications to take at Discharge tramadol 50 mg tablet 50 mg PO BID PRN PRN tab 05/05/17 Furosemide [Lasix] 40 mg PO QODAY 07/07/17 insulin glargine (U-100) 100 unit/mL (3 mL) subcutaneous pen 80 units SC BID ml 09/02/17 magnesium oxide 400 mg (241.3 mg magnesium) tablet 400 mg PO BID #60 tab 09/21/17 metoprolol tartrate 50 mg tablet 75 mg PO BID #90 tab 09/21/17 buprenorphine 7.5 mcg/hour weekly transdermal patch 1 patch TRANSDERMAL FR 10/18/17 omeprazole 20 mg capsule,delayed release 20 mg PO DAILY #90 cap 10/19/17 Aspirin E.C. [Ecotrin] 81 mg PO DAILY 01/11/18 insulin aspart (U-100) 100 unit/mL (3 mL) subcutaneous pen See Rx Instructions SC .COMPLEX #30 ml 02/01/18 atorvastatin 80 mg tablet 80 mg PO QHS #30 tab 02/09/18 miconazole nitrate 2 % topical powder 1 applic TOPICAL DAILY #85 g 02/09/18 nitroglycerin 0.4 mg sublingual tablet 0.4 mg SUBLINGUAL Q5M PRN #25 tab 02/18/18 calcium carbonate 600 mg calcium (1,500 mg) tablet 600 mg PO BID #60 tab 04/20/18 ondansetron 4 mg disintegrating tablet 4 mg PO BID-TID PRN #30 tab 04/26/18 promethazine 12.5 mg tablet 12.5 mg PO TID PRN #20 tab 04/26/18 clopidogrel 75 mg tablet 75 mg PO DAILY #30 tab 06/20/18 lorazepam 0.5 mg tablet 0.25 mg PO QHS PRN #15 tab 06/27/18 pregabalin 50 mg capsule 50 mg PO BID #60 cap 06/27/18 Baclofen [Lioresal] 10 mg PO DAILY 06/30/18 Cholecalciferol (Vitamin D3) [D3-2000] 2,000 unit PO DAILY 06/30/18 Hydrocortisone 1% Crm [Hytone] 1 applic TOPICAL BID 06/30/18 Loperamide [Imodium] 2 mg PO PRN PRN 06/30/18 Metoprolol Tartrate [Lopressor (beta esha)] 25 mg PO BID 06/30/18 Venlafaxine XR [Effexor Xr] 150 mg PO DAILY 06/30/18 Isosorbide DN [Isordil] 60 mg PO BID #60 tablet 07/02/18 Ranolazine [Ranexa] 1,000 mg PO BID #60 tablet 07/02/18 The following prescriptions were given: Isosorbide DN [Isordil] 60 mg PO BID #60 tablet Ranolazine [Ranexa] 1,000 mg PO BID #60 tablet Primary Care Physician: Mala Mcgrath MD [Primary Care Provider] - Please follow up with your Primary Care Physician in: 1 Week Test Results: Test results from this visit will be discussed in further detail at your follow- up appointment, if applicable. Please Follow Up With: Serenity Mckeon PA When: As scheduled, 07/21/18 Proposed Discharge Date: 07/02/18
--- NOTE | 2018-07-02 11:09 | PCM.DC.SUM ---
<Linda Galo - Last Filed: 07/02/18 13:34> Discharge Date and Diagnosis Date of Admission: 06/30/18 Date of Discharge: 07/02/18 - Primary Discharge Diagnosis Active and Suspected Problems (Last Reviewed 04/26/18 @ 10:27 by Ema Henderson) 1. Chest pain with history of CAD status post multiple stents and four-vessel CABG 2. Acute on chronic intractable back pain 3. Hypertension 4. Hyperlipidemia 5. Type 2 diabetes mellitus 6. Chronic kidney disease stage III 7. Ulcerative colitis status post ileostomy 8. Psoriasis 9. Depression 10. Obesity - Secondary Discharge Diagnosis Chronic Problems (Last Reviewed 04/26/18 @ 10:27 by Ema Henderson) CAD (coronary artery disease) (Chronic) Arthritis (Chronic) Essential (primary) hypertension (Chronic) Atherosclerosis of coronary artery bypass graft without angina pectoris (Chronic) CABG x 4 JONES-LAD, SVG-D1, SVG-OM1, SVG-LPDA 05/18/2012 PCI-CLINTON mid D1 with a 2.25 x 12 Promus Synergy 01/12/2018 Mid LAD and Cx 08/30/2012, D1 and prox OM1 09/14/12, Prox SVG, Distal SVG to the Mid OM 10/31/2012 Depression (Chronic) FCHL (familial combined hyperlipidemia) (Chronic) Ulcerative colitis (Chronic) Status post ileostomy Pulmonary hypertension (Chronic) Chronic respiratory failure (Chronic) COPD (chronic obstructive pulmonary disease) (Chronic) Anemia of chronic renal failure, stage 3 (moderate) (Chronic) Obstructive sleep apnea (Chronic) Psoriasis (Chronic) Heart failure with preserved ejection fraction (Chronic) Ileostomy status (Chronic) Surgical wound dehiscence (Chronic) Shortness of breath (Chronic) Multiple falls (Chronic) Right thyroid nodule (Chronic) 1.4 centimeter right sided nodule on CT scan Thyroid mass (Chronic) Syncope (Chronic) Vertigo (Chronic) Chronic renal insufficiency (Chronic) Sleep apnea (Chronic) Menieres disease (Chronic) Ulcerative colitis (Chronic) Hyperlipidemia (Chronic) DM2 (diabetes mellitus, type 2) (Chronic) Hospital Course and Treatment Imaging Results: Diagnostic Data Chest X-Ray 06/30/18 18:05 IMPRESSION: Normal x-ray examination of the chest. Electronically Signed: Roberto Aguilar DO at 18:25 EDT Tel , Service support , Lumbar Spine X-Ray 06/30/18 21:03 IMPRESSION: Degenerative disc disease at L5-S1. No acute abnormalities or other findings. No definite change. Electronically Signed: Pancho Mckeon MD at 21:45 EDT , Service support , Lumbar Spine MRI 07/01/18 05:55 IMPRESSION: Multilevel degenerative disease as described. Moderate right foraminal stenosis at the L4-5 level. Electronically Signed: Kendrick Shin MD at 9:22 EDT Tel , Service support , Dr. Smith- Cardiology Operations: None Procedures: 2-D Echocardiogram, Stress test Summary of Care Provided: The patient is a 57 year old F admitted 06/30/2017 due to chest pain and low back pain. 1. Chest pain with history of CAD status post multiple stents and four-vessel CABG- ACS ruled out. Follows with Dr. Menon. Cardiology consult placed. Troponin negative. EKG without ST-T changes. Echocardiogram shows an EF of 65%, mild to moderate pulmonic valve insufficiency, mild mitral valve insufficiency. Patient had cardiac catheterization 01/12/2018 with PTCA to mid diagonal #1. There was noted consideration of complex PCI to [place] LAD if patient had continued symptoms. Continue aspirin, statin, Plavix, metoprolol, isosorbide. Home isosorbide regimen increased to 60 mg twice daily. Ranexa increased to thousand milligrams twice daily. Patient's chest pain improved. Patient underwent nuclear stress test which was negative for ischemia. Continue outpatient follow-up with cardiology, patient has upcoming appointment with ROBERT Barone 07/21/18. Follow-up with primary care physician in 1 week. 2. Acute on chronic intractable back pain- Follows with Dr. Wright. Consult placed however Dr. Wright is out until Wednesday. Continue home Lyrica, baclofen, tramadol, Buprenorphine patch. Lumbar spine MRI shows multilevel degenerative disease. Moderate right foraminal stenosis at L4-L5. Continue outpatient follow-up with pain management. She reports she was seen by a neurosurgeon and reported not to be a candidate for surgery. Acute increased pain improved. 3. Hypertension-stable, continue isosorbide, metoprolol regimen. 4. Hyperlipidemia-continue statin. 5. Type 2 diabetes mellitus-continue home insulin regimen. Hemoglobin A1C June 2018 9.4%. 6. Chronic kidney disease stage III-at baseline. 7. Ulcerative colitis status post ileostomy 8. Psoriasis-continue outpatient follow-up with dermatology. 9. Depression-continue Effexor regimen. 10. Obesity-encourage diet and lifestyle modifications. General: Alert, Oriented x3, Cooperative HEENT: Atraumatic, PERRLA, EOMI, Normocephalic Neck: Supple, No JVD, Negative Carotid Bruits Lungs: Clear to auscultation, Normal air movement Cardiovascular: Regular rate, Regular Rhythm, Normal S1, Normal S2, No murmurs Abdomen: Bowel Sounds Present, Soft, Non Tender, Non-Distended, - - Ileostomy intact Extremities: No clubbing, No cyanosis, No edema, Capillary Refill Less than 3 Seconds Skin: No rashes, No breakdown Musculoskeletal: No Tenderness to Palpation of Joints or Extremities Neurological: Cranial nerves II-XII grossly intact, Neuro grossly intact Psych/Mental Status: Appropriate Patient seen and examined prior to discharge. Physical assessment as noted above. Patient is stable for discharge with follow up recommendations as noted above. This patient was seen by DERIC Gonzales under the supervision of Dr. Etienne. - Physical Exam Vital Signs Temp Pulse Resp BP Pulse Ox 98.3 F 67 16 122/61 H 93 07/02/18 06:29 07/02/18 07:00 07/02/18 06:29 07/02/18 06:29 07/02/18 06:29 Oxygen Delivery Method Room Air Weight: 200 lb 2.876 oz Body Mass Index (BMI) 31.3 Finger Stick Blood Glucose 348 Intake and Output for Last 24 Hours 06/30/18 07/01/18 07/02/18 23:59 23:59 23:59 Intake Total 378 / 378 2174 / 2174 Balance 378 / 378 2174 / 2174 Laboratory Tests Past 24 Hrs 07/02/18 07/02/18 07/02/18 07:02 07:02 07:02 WBC 6.1 RBC 4.02 L Hgb 11.3 L Hct 35.4 L MCV 88.1 MCH 28.1 MCHC 31.9 L RDW 15.6 H RDW Differential 50.7 H Plt Count 147 L MPV 12.4 H Immature Gran % (Auto) 1.000 H Neut % (Auto) 47.2 Lymph % (Auto) 36.3 Foard % (Auto) 7.1 Eos % (Auto) 8.1 H Baso % (Auto) 0.3 Absolute Neuts (auto) 2.9 Absolute Lymphs (auto) 2.21 Total Counted Not Reportable PT 13.9 INR 1.1 APTT 29.9 Sodium 141 Potassium 4.4 Chloride 107 Carbon Dioxide 28.0 Anion Gap 6 BUN 19 H Creatinine 1.27 H Estim Creat Clear Calc 46.38 Est GFR (MDRD) Af Amer 55 L Est GFR (MDRD) Non-Af 46 L BUN/Creatinine Ratio 15.0 Glucose 215 H Calcium 8.2 L POC Glucose 07/02/18 07/01/18 07/01/18 06:36 21:49 16:04 POC Glucose 207 H 364 H 406 H Discharge Diet: Low fat/ Low Cholesterol Discharge Activity: Return to Normal Activity Call your doctor if you observe: Shortness of breath, Dizziness, Fainting spells, Chest pain Home Medications: Medications to take at Discharge tramadol 50 mg tablet 50 mg PO BID PRN PRN tab 05/05/17 Furosemide [Lasix] 40 mg PO QODAY 07/07/17 insulin glargine (U-100) 100 unit/mL (3 mL) subcutaneous pen 80 units SC BID ml 09/02/17 magnesium oxide 400 mg (241.3 mg magnesium) tablet 400 mg PO BID #60 tab 09/21/17 metoprolol tartrate 50 mg tablet 75 mg PO BID #90 tab 09/21/17 buprenorphine 7.5 mcg/hour weekly transdermal patch 1 patch TRANSDERMAL FR 10/18/17 omeprazole 20 mg capsule,delayed release 20 mg PO DAILY #90 cap 10/19/17 Aspirin E.C. [Ecotrin] 81 mg PO DAILY 01/11/18 insulin aspart (U-100) 100 unit/mL (3 mL) subcutaneous pen See Rx Instructions SC .COMPLEX #30 ml 02/01/18 atorvastatin 80 mg tablet 80 mg PO QHS #30 tab 02/09/18 miconazole nitrate 2 % topical powder 1 applic TOPICAL DAILY #85 g 02/09/18 nitroglycerin 0.4 mg sublingual tablet 0.4 mg SUBLINGUAL Q5M PRN #25 tab 02/18/18 calcium carbonate 600 mg calcium (1,500 mg) tablet 600 mg PO BID #60 tab 04/20/18 ondansetron 4 mg disintegrating tablet 4 mg PO BID-TID PRN #30 tab 04/26/18 promethazine 12.5 mg tablet 12.5 mg PO TID PRN #20 tab 04/26/18 clopidogrel 75 mg tablet 75 mg PO DAILY #30 tab 06/20/18 lorazepam 0.5 mg tablet 0.25 mg PO QHS PRN #15 tab 06/27/18 pregabalin 50 mg capsule 50 mg PO BID #60 cap 06/27/18 Baclofen [Lioresal] 10 mg PO DAILY 06/30/18 Cholecalciferol (Vitamin D3) [D3-2000] 2,000 unit PO DAILY 06/30/18 Hydrocortisone 1% Crm [Hytone] 1 applic TOPICAL BID 06/30/18 Loperamide [Imodium] 2 mg PO PRN PRN 06/30/18 Metoprolol Tartrate [Lopressor (beta esha)] 25 mg PO BID 06/30/18 Venlafaxine XR [Effexor Xr] 150 mg PO DAILY 06/30/18 Isosorbide DN [Isordil] 60 mg PO BID #60 tablet 07/02/18 Ranolazine [Ranexa] 1,000 mg PO BID #60 tablet 07/02/18 Following Prescrptions Were Given to Patient: Isosorbide DN [Isordil] 60 mg PO BID #60 tablet Ranolazine [Ranexa] 1,000 mg PO BID #60 tablet Primary Care Physician: Mala Mcgrath MD [Primary Care Provider] - Please follow up with your Primary Care Physician in: 1 Week Please Follow Up With: Serenity Mckeon PA When: As scheduled, 07/21/18 Please Follow Up With: Clark Wright MD When: As scheduled 07/04/18 Please Follow Up With: Radha Snowden MD When: Call for appt to review lumbar spine MRI Disposition: Home Minutes spent on discharge:: 35 Patient Condition:: Stable Medical Necessity - Tobacco Use Smoking Status: Former smoker Meaningful Use Info Meaningful Use Diagnoses (Choose all that apply): None applicable <VictorianoshanelleMichael - Last Filed: 07/02/18 13:51> Discharge Date and Diagnosis - Secondary Discharge Diagnosis Chronic Problems (Last Reviewed 04/26/18 @ 10:27 by Ema Henderson) CAD (coronary artery disease) (Chronic) Arthritis (Chronic) Essential (primary) hypertension (Chronic) Atherosclerosis of coronary artery bypass graft without angina pectoris (Chronic) CABG x 4 JONES-LAD, SVG-D1, SVG-OM1, SVG-LPDA 05/18/2012 PCI-[facility] mid D1 with a 2.25 x 12 Promus Synergy 01/12/2018 Mid LAD and Cx 08/30/2012, D1 and prox OM1 09/14/12, Prox SVG, Distal SVG to the Mid OM 10/31/2012 Depression (Chronic) FCHL (familial combined hyperlipidemia) (Chronic) Ulcerative colitis (Chronic) Status post ileostomy Pulmonary hypertension (Chronic) Chronic respiratory failure (Chronic) COPD (chronic obstructive pulmonary disease) (Chronic) Anemia of chronic renal failure, stage 3 (moderate) (Chronic) Obstructive sleep apnea (Chronic) Psoriasis (Chronic) Heart failure with preserved ejection fraction (Chronic) Ileostomy status (Chronic) Surgical wound dehiscence (Chronic) Shortness of breath (Chronic) Multiple falls (Chronic) Right thyroid nodule (Chronic) 1.4 centimeter right sided nodule on CT scan Thyroid mass (Chronic) Syncope (Chronic) Vertigo (Chronic) Chronic renal insufficiency (Chronic) Sleep apnea (Chronic) Menieres disease (Chronic) Ulcerative colitis (Chronic) Hyperlipidemia (Chronic) DM2 (diabetes mellitus, type 2) (Chronic) Hospital Course and Treatment Imaging Results: 07/02/18 05:55 Nuclear Stress Test - Chemical [NM] AM (NON MEDS) Summary of Care Provided: TThis patient was seen in conjunction with DERIC Gonzales . I have independently interviewed and examined the patient and reviewed pertinent historical, laboratory, and other data. Please refer to DERIC Gonzales note for details of this patient's presentation, findings, and recommendations. I have reviewed DERIC Gonzales note and concur with documented findings. In brief, patient is a 57-year-old lady with multiple comorbidities including CAD with previous CABG and subsequent PCI, diabetes mellitus type 2, hypertension who presented with chest discomfort as well as intractable back pain Assessment: 1. Chest pain 2. CAD with previous CABG and subsequent PCI 3. Chronic back pain 4. Dyslipidemia 5. Ulcerative colitis with ileostomy 6. Essential hypertension 7. Pulmonary hypertension 8. Diabetes mellitus type 2 with complication including diabetic nephropathy 9. Chronic kidney disease stage III 10. Obesity with BMI of 31.4 11. Depression with anxiety 12. DVT prophylaxis Lovenox Hospital course: As documented above - Physical Exam Vital Signs Temp Pulse Resp BP Pulse Ox 98.0 F 89 16 117/68 95 07/02/18 11:30 07/02/18 11:43 07/02/18 11:30 07/02/18 11:30 07/02/18 11:30 Oxygen Delivery Method Room Air Weight: 90.8 kg Body Mass Index (BMI) 31.3 Finger Stick Blood Glucose 348 Intake and Output for Last 24 Hours 06/30/18 07/01/18 07/02/18 23:59 23:59 23:59 Intake Total 378 / 378 2174 / 2174 852 / 852 Balance 378 / 378 2174 / 2174 852 / 852 Laboratory Tests Past 24 Hrs 07/02/18 07/02/18 07/02/18 07:02 07:02 07:02 WBC 6.1 RBC 4.02 L Hgb 11.3 L Hct 35.4 L MCV 88.1 MCH 28.1 MCHC 31.9 L RDW 15.6 H RDW Differential 50.7 H Plt Count 147 L MPV 12.4 H Immature Gran % (Auto) 1.000 H Neut % (Auto) 47.2 Lymph % (Auto) 36.3 Foard % (Auto) 7.1 Eos % (Auto) 8.1 H Baso % (Auto) 0.3 Absolute Neuts (auto) 2.9 Absolute Lymphs (auto) 2.21 Total Counted Not Reportable PT 13.9 INR 1.1 APTT 29.9 Sodium 141 Potassium 4.4 Chloride 107 Carbon Dioxide 28.0 Anion Gap 6 BUN 19 H Creatinine 1.27 H Estim Creat Clear Calc 46.38 Est GFR (MDRD) Af Amer 55 L Est GFR (MDRD) Non-Af 46 L BUN/Creatinine Ratio 15.0 Glucose 215 H Calcium 8.2 L POC Glucose 07/02/18 07/02/18 07/01/18 11:21 06:36 21:49 POC Glucose 245 H 207 H 364 H 07/01/18 16:04 POC Glucose 406 H Code Visit OBSV E&M: 42872 Observation care discharge
[2018-07-02 11:30] VITALS: BP 117/68; PULSE 72; RESP 16; TEMP 36.7; O2SAT 95
[2018-07-02] MEDS: oxyCODONE 5 MG Tablet PO (11:40)
[2018-07-02] MEDS: traMADol 50 MG Tablet PO (11:41)
[2018-07-02] MEDS: Isosorbide DN 30 MG Tablet 60 MG PO (11:42)
[2018-07-02] MEDS: Venlafaxine XR 150 MG Capsule PO (11:42)
[2018-07-02] MEDS: Baclofen 10 MG Tablet PO (11:42)
[2018-07-02 11:43] VITALS: PULSE 89
[2018-07-02] MEDS: Magnesium Oxide 400 MG Tablet PO (11:43)
[2018-07-02] MEDS: Metoprolol Tartrate 50 MG Tablet PO (11:43)
[2018-07-02] MEDS: Metoprolol Tartrate 25 MG Tablet PO (11:43)
[2018-07-02] MEDS: Pantoprazole Sodium 20 MG Tablet PO (11:44)
[2018-07-02] MEDS: Ranolazine 500 MG Tablet 1000 MG PO (11:44)
[2018-07-02] MEDS: Pregabalin 50 MG Capsule PO (11:49)
[2018-07-02 11:51] LABS: Bedside Glucose 245 mg/dL (70-110)
--- NOTE | 2018-07-02 12:35 | STRESSREP ---
Stress Test Report Date: 07-02-18 Procedure: Pharmacologic stress nuclear imaging study Indications: Chest pain; CAD; status post PCI; status post CABG Consent: Per the patient Procedure: The patient underwent pharmacologic (Regadenoson) evaluation with a peak heart rate of 86 beats per minute (53 %predicted maximal heart rate) and a peak blood pressure of 168/82 mmHg. The baseline ECG demonstrated normal sinus rhythm; nonspecific ST/T wave abnormality (consider anterolateral myocardial ischemia). The peak pharmacologic ECG demonstrated continued nonspecific ST/T wave abnormality. There were no cardiac dysrhythmias pretest, during pharmacologic infusion, or recovery. There was no complaint of chest discomfort during pharmacologic infusion or recovery. The examination was discontinued secondary to completion of protocol. Impression: 1. Pharmacologic (Regadenoson) evaluation 2. Peak pharmacologic ECG with continued nonspecific ST/T wave abnormality. 3. There were no cardiac dysrhythmias pretest, during pharmacologic infusion, or recovery. 4. Nuclear images pending Myocardial perfusion imaging study: Technique: The patient was injected with 13.6 millicuries of technetium 99m Cardiolite and subsequently rest SPECT Cardiolite nuclear imaging was obtained in the horizontal long, vertical long, and short axis views. The patient underwent pharmacologic (Regadenoson) evaluation with a peak heart rate of 86 beats per minute (53 % percent predicted maximal heart rate) and a peak blood pressure of 168/82 mmHg. The patient was injected with 40.0 millicuries of technetium 99m Cardiolite and subsequently stress SPECT Cardiolite nuclear imaging was obtained in the horizontal long, vertical long, and short axis views. A gated Cardiolite study at peak stress was obtained. Interpretation: Rest and stress SPECT Cardiolite nuclear imaging status post realignment, normalization, and attenuation correction demonstrate at rest the appearance of subtle diminished tracer uptake near the apical segments which status post stress appears to be improved/normalized. Status post stress there appears to be relative uniform tracer uptake and myocardial perfusion appearing within normal limits. There is end systolic thickening and brightening. The gated Cardiolite study demonstrates myocardial thickening and inward wall motion. The reported LVEF is 66 %. Impression: 1. Rest and stress SPECT Cardiolite nuclear imaging demonstrate myocardial perfusion changes at rest which appear to improve/normalize status post stress. Compatible shifting soft tissue attenuation/artifact with no post stress myocardial perfusion changes consider diagnostic for associated stress-induced myocardial ischemia. 2. The gated Cardiolite study reports an LVEF of 66 %. This note was generated with [employer] software. It may contain incorrect words, spelling, and punctuation that were not noted in checking the note before signing.
--- NOTE | 2018-07-02 12:52 | PCM.PN.CARD ---
Subjectve: The patient states her chest discomfort has improved. She continues with her chronic back discomfort. Objective: Vital Signs Temp Pulse Resp BP Pulse Ox 98.0 F 89 16 117/68 95 07/02/18 11:30 07/02/18 11:43 07/02/18 11:30 07/02/18 11:30 07/02/18 11:30 Oxygen Delivery Method Room Air Weight: 200 lb 2.876 oz Body Mass Index (BMI) 31.3 Finger Stick Blood Glucose 348 Intake and Output for Last 24 Hours 06/30/18 07/01/18 07/02/18 23:59 23:59 23:59 Intake Total 378 / 378 2174 / 2174 852 / 852 Balance 378 / 378 2174 / 2174 852 / 852 General: Awake, Alert, Oriented x 3, Cooperative, No Acute Distress HEENT: Atraumatic, Normocephalic, PERRL, EOMI, Sclera Non Icteric Oral: Moist Mucosa Neck: Supple, Good ROM, No JVD Lungs: Clear to auscultation Cardiovascular: Regular Rhythm, Normal S1, Normal S2 Abdomen: Bowel Sounds Present, Soft, Non Tender Extremities: No edema Psych/Mental Status: Appropriate 07/02/18 07:02: Sodium 141, Potassium 4.4, Chloride 107, Carbon Dioxide 28.0, Anion Gap 6, BUN 19 H, Creatinine 1.27 H, Est GFR (MDRD) Af Amer 55 L, Est GFR (MDRD) Non-Af 46 L, BUN/Creatinine Ratio 15.0, Glucose 215 H, Calcium 8.2 L 07/02/18 07:02: WBC 6.1, RBC 4.02 L, Hgb 11.3 L, Hct 35.4 L, MCV 88.1, MCH 28.1, MCHC 31.9 L, RDW 15.6 H, RDW Differential 50.7 H, Plt Count 147 L, MPV 12.4 H, Immature Gran % (Auto) 1.000 H, Neut % (Auto) 47.2, Lymph % (Auto) 36.3, [place] % (Auto) 7.1, Eos % (Auto) 8.1 H, Baso % (Auto) 0.3, Absolute Neuts (auto) 2.9, Total Counted Not Reportable 07/02/18 07:02: PT 13.9, INR 1.1, APTT 29.9 Rhythm: Sinus rhythm EKG: Sinus rhythm; nonspecific ST/T wave abnormality (consider anterolateral myocardial ischemia); compared to the previous ECG there appears to be no significant change Stress Test: Date: 07-02-18 Procedure: Pharmacologic stress nuclear imaging study Indications: Chest pain; CAD; status post PCI; status post CABG Consent: Per the patient Procedure: The patient underwent pharmacologic (Regadenoson) evaluation with a peak heart rate of 86 beats per minute (53 %predicted maximal heart rate) and a peak blood pressure of 168/82 mmHg. The baseline ECG demonstrated normal sinus rhythm; nonspecific ST/T wave abnormality (consider anterolateral myocardial ischemia). The peak pharmacologic ECG demonstrated continued nonspecific ST/T wave abnormality. There were no cardiac dysrhythmias pretest, during pharmacologic infusion, or recovery. There was no complaint of chest discomfort during pharmacologic infusion or recovery. The examination was discontinued secondary to completion of protocol. Impression: 1. Pharmacologic (Regadenoson) evaluation 2. Peak pharmacologic ECG with continued nonspecific ST/T wave abnormality. 3. There were no cardiac dysrhythmias pretest, during pharmacologic infusion, or recovery. 4. Nuclear images pending Myocardial perfusion imaging study: Technique: The patient was injected with 13.6 millicuries of technetium 99m Cardiolite and subsequently rest SPECT Cardiolite nuclear imaging was obtained in the horizontal long, vertical long, and short axis views. The patient underwent pharmacologic (Regadenoson) evaluation with a peak heart rate of 86 beats per minute (53 % percent predicted maximal heart rate) and a peak blood pressure of 168/82 mmHg. The patient was injected with 40.0 millicuries of technetium 99m Cardiolite and subsequently stress SPECT Cardiolite nuclear imaging was obtained in the horizontal long, vertical long, and short axis views. A gated Cardiolite study at peak stress was obtained. Interpretation: Rest and stress SPECT Cardiolite nuclear imaging status post realignment, normalization, and attenuation correction demonstrate at rest the appearance of subtle diminished tracer uptake near the apical segments which status post stress appears to be improved/normalized. Status post stress there appears to be relative uniform tracer uptake and myocardial perfusion appearing within normal limits. There is end systolic thickening and brightening. The gated Cardiolite study demonstrates myocardial thickening and inward wall motion. The reported LVEF is 66 %. Impression: 1. Rest and stress SPECT Cardiolite nuclear imaging demonstrate myocardial perfusion changes at rest which appear to improve/normalize status post stress. Compatible shifting soft tissue attenuation/artifact with no post stress myocardial perfusion changes consider diagnostic for associated stress-induced myocardial ischemia. 2. The gated Cardiolite study reports an LVEF of 66 %. Medical Necessity - Tobacco Use Smoking Status: Former smoker Assessment/Plan 1. Chest pain At the present time she does have her chronic chest discomfort. It waxes and wanes. She has undergone noninvasive evaluation. Her cardiac enzymes have remained negative. Her ECG is demonstrated no new acute changes. Her pharmacologic stress nuclear imaging study does not appear to demonstrate ongoing evidence of myocardial ischemia at this time. Her medications have been adjusted. She states she does feels improved. At the present time she will continue medical management. 2. CAD status post PCI status post CABG At the present time she will continue medical management. If despite optimizing her medications as best as possible she continues with ongoing symptoms concerning for her CAD process then she may need, despite her stress test findings, consideration for repeat diagnostic cardiac catheterization. 3. Hyperlipidemia She will continue risk factor modification medical management. 4. Hypertension She will continue medical management and follow-up. 5. Diabetes mellitus She will need to continue valuation care per her primary care physicians. 6. COPD She does have a history of COPD. Again she will continue evaluation care by her primary care physicians. 7. Pulmonary hypertension She reportedly has a history of pulmonary hypertension. She will continue evaluation care as deemed appropriate. 8. Chronic renal insufficiency She does have chronic renal insufficiency. This would have to be taken into consideration if she were to undergo another invasive procedure with IV contrast. 9. Back discomfort She has been following with pain management for her chronic back discomfort. A pain pump was suggested however it was placed on hold based upon not wanting to interrupt her antiplatelet therapy status post her stent placement in January 2018. Comment: The patient's case was discussed and reviewed with the patient and the [facility] staff. This note was generated with [employer] software. It may contain incorrect words, spelling, and punctuation that were not noted in checking the note before signing.
== END 2018-07-02 11:09 | disposition home or self-care (01) ==
LOC: ED 18:45 → PCU 21:02
PROVIDERS: Internal Medicine Cardiovascular Disease; Nurse Practitioner Family; Admitting Provider Family Medicine; Emergency Provider Emergency Medicine; Family Provider Internal Medicine; PCP Internal Medicine; Visit Provider Internal Medicine
DX: R07.89 Other chest pain (principal); M19.90 Unspecified osteoarthritis, unspecified site; G89.29 Other chronic pain; I25.10 Atherosclerotic heart disease of native coronary artery without angina pectoris; K51.90 Ulcerative colitis, unspecified, without complications; J44.9 Chronic obstructive pulmonary disease, unspecified; E78.49 Other hyperlipidemia; J96.10 Chronic respiratory failure, unspecified whether with hypoxia or hypercapnia; E11.22 Type 2 diabetes mellitus with diabetic chronic kidney disease; N18.3 Chronic kidney disease, stage 3 (moderate); D63.1 Anemia in chronic kidney disease; I12.9 Hypertensive chronic kidney disease with stage 1 through stage 4 chronic kidney disease, or unspecified chronic kidney disease; G47.30 Sleep apnea, unspecified; F41.9 Anxiety disorder, unspecified; L40.9 Psoriasis, unspecified; E66.9 Obesity, unspecified; I27.20 Pulmonary hypertension, unspecified; M48.061 Spinal stenosis, lumbar region without neurogenic claudication; F32.9 Major depressive disorder, single episode, unspecified; Z95.1 Presence of aortocoronary bypass graft; Z87.891 Personal history of nicotine dependence; Z79.899 Other long term (current) drug therapy; Z79.4 Long term (current) use of insulin; Z79.82 Long term (current) use of aspirin; Z79.02 Long term (current) use of antithrombotics/antiplatelets; Z93.2 Ileostomy status; Z68.31 Body mass index [BMI] 31.0-31.9, adult; Z71.3 Dietary counseling and surveillance
CPT/HCPCS: 36415; 71045; 72100; 72148; 78452; 80048; 80307; 82962; 83880; 84484; 85025; 85610; 85730; 86431; 93005; 93017; 93306; 96361; 96372; 96374; 96375; 96376; 97110; 97162; 97166; 97802; 99218; 99285; A9500; J7030; Q9957; A4216; C8929; G0378; J2405; J2785

== ENCOUNTER 2018-07-15 09:43 | Inpatient (IN) | payer MEDICARE, MEDICAID, SELFPAY ==
[2018-01-12 13:19] VITALS: BMI 30.9
[2018-06-30 22:10] VITALS: BMI 31.3
[2018-07-15] VITALS (7 sets, daily range): BP systolic 131–153; BP diastolic 47–78; PULSE 69–103; RESP 16–18; TEMP 36.5–37.1; O2SAT 95–96; BMI 31.5; BMI 31.8
--- NOTE | 2018-07-15 10:02 | CT_ITS ---
STUDY: CT ABDOMEN AND PELVIS WITH CONTRAST REASON FOR EXAM: Female, 57 years old. Nausea and vomiting since last night RADIATION DOSAGE (If Supplied By Facility): CTDIvol = ( 19.63 ) mGy, DLP = ( 1243.73 ) mGycm TECHNIQUE: Transaxial images were obtained from the dome of the diaphragm to the symphysis pubis without oral contrast. 100 IV/Oral Isovue 300 was administered. Sagittal and coronal images were reconstructed. Individualized dose optimization techniques were used for this CT. COMPARISON: 01/05/2018 FINDINGS: The visualized lung bases are unremarkable. The visualized portions of the heart are within normal limits. There is decreased attenuation of the liver consistent with steatosis. There is non-visualization of the gallbladder, which may be secondary to either contraction or a prior cholecystectomy. Normal spleen. Normal pancreas. Normal bilateral adrenal glands. Normal right kidney. Normal left kidney. Normal visualized stomach. Loops of small bowel demonstrate mild distention however, no abnormal dilation. Left lower quadrant ostomy is identified. Patient is status post total colectomy. There is diffuse atherosclerotic calcification of the abdominal aorta, without a demonstrated aneurysm. Normal inferior vena cava. Normal retroperitoneum. Under distended urinary bladder. Status post hysterectomy. Normal abdominal wall. There are diffuse degenerative changes of the visualized lumbar spine. CT/Abdomen/Pelvis WITH Contrast IMPRESSION: Status post total colectomy. Left lower quadrant ostomy. No evidence of small bowel obstruction. Mild distention of several loops of upper abdominal small bowel. Electronically Signed: Roberto Aguilar DO at 12:28 EDT Tel , Service support ,
[2018-07-15] MEDS: Metoclopramide 10 MG/2 ML Vial IV (10:45)
[2018-07-15] MEDS: Morphine 4 MG/ML Syringe IV (10:45)
[2018-07-15] MEDS: 0.9% Normal Saline 1,000 ML 125 ML IV (10:45)
[2018-07-15 10:50] LABS: ALB/GLOB Ratio 0.7 RATIO (0.9-2.4); AST(SGOT) 18 U/L (15-37); Alanine Aminotransfer ALT/SGPT 22 U/L (13-56); Albumin, Serum 2.9 g/dL (3.2-5.0); Alkaline Phosphatase 158 U/L (45-117); Anion Gap 8 (5-15); BUN 26 mg/dL (7-18); BUN/Creat Ratio 17.8 RATIO (10-20); Calcium,Total 9.9 mg/dL (8.5-10.1); Chloride 107 mmol/L (98-107); Creatinine, Serum 1.46 mg/dL (0.55-1.02); EST Glomerular Filtration Rate 39 mL/min (>60); Est Glom Filt Rate - Afr Amer 47 mL/min (>60); Estimated Creatinine Clearance 40.35 ml/min; Globulin 4.1 g/dL (2.2-4.2); Glucose 256 mg/dL (74-106); Lipase 192 U/L (73-393); Potassium 4.4 mmol/L (3.5-5.1); Sodium Level 143 mmol/L (136-145)
[2018-07-15 11:07] LABS: Absolute Lymphocyte Count 2.33 X10^3/ul (0.83-4.51); Absolute Neutrophil Count 5.6 X10^3/uL (2.0-7.7); Basophil# 0.04 X10^3/uL; Basophil% 0.4 % (0-1); Eosinophil# 0.75 X10^3/uL; Eosinophils% 8.2 % (0-5); Hematocrit 40.6 % (37-47); Hemoglobin 13.1 g/dl (12.0-15.0); Lymphocyte # 2.33 X10^3/ul (4.0); Lymphocyte % 25.5 % (19-41); Mean Corp Hgb Conc 32.3 g/gl (32-36); Mean Corpuscular Hgb 28.2 pg (27.0-32.0); Mean Corpuscular Volume 87.3 fL (81-99); Mean Platelet Vol. 12.9 fl (6.2-12.0); Monocyte# 0.37 X10^3/uL; Neutrophil # 5.57 X10^3/uL (2.7-7.7); Neutrophil % 60.9 % (47-70); Platelet Count 170 K/mm3 (150-450); RBC Distribution Width CV 15.4 % (11.6-14.6); RBC Distribution Width SD 48.9 fl (35.1-43.9); Red Blood Count 4.65 M/mm3 (4.2-5.4); White Blood Count 9.2 K/mm3 (4.4-11.0)
[2018-07-15 11:08] LABS: Differential Indicated SCAN CRITERIA MET; POSITIVE COUNT YES; POSITIVE DIFFERENTIAL NO; POSITIVE MORPHOLOGY YES
[2018-07-15 11:38] LABS: Red Cell Morphology NORM C+C NORMAL (NORM C&C)
[2018-07-15 11:39] LABS: Platelet Estimate ADEQUATE (ADEQ); Platelet Morphology LARGE
[2018-07-15] MEDS: proMETHazine 25 MG/ML Syringe 12.5 MG IV (11:43)
[2018-07-15 11:57] LABS: Mucous, Urine 0 SEEN /hpf (<or=2+)
[2018-07-15 12:07] LABS: Color, Urine Yellow (Yellow); Glucose, Dipstick 50 mg/dl (Normal); Ketone-Dipstick 5 mg/dl (Negative); Leukocyte Esterase-Dipstick 25 /ul (Negative); Nitrite-Dipstick Negative (Negative); Occult Blood-Urine 10 /ul (Negative); Protein-Dipstick 100 mg/dl (Negative); Urine Bilirubin Dipstick Negative (Negative); Urine Clarity Sl. Cloudy (Clear); Urine Urobilinogen Normal (Normal)
[2018-07-15 12:16] LABS: Bacteria 1+ /hpf (None Seen); Red Blood Cells-Urine 0-5 SEEN /hpf (0-5); Squamous Epithelial Cells - UA 0-5 SEEN /hpf (5-10); White Blood Cells 0-5 SEEN /hpf (0-5)
--- NOTE | 2018-07-15 12:42 | ED.VISSUMM ---
- ER Visit Summary Date of Service: 07/15/18 Chief Complaint: [Abdominal pain, vomiting, watery output from ileostomy] History of Present Illness: The patient is a 57 F [presents the emergency department with symptoms that started yesterday. Patient vomited multiple times yesterday and is vomited twice today. Patient continues to have persistent watery output from ileostomy that is more than usual. [place] any fever. She describes diffuse abdominal discomfort. Patient denies any sick contacts. She denies recent antibiotic usage. Patient has history of coronary artery disease, hypertension, ulcerative colitis, pulmonary hypertension, pancreatitis, gastroparesis, and COPD.] Physical Examination: [HEENT-PERRLA, EOMI. Cranial nerves II through XII grossly intact. TMs clear. Mucous membranes dry. No adenopathy. Cardiovascular-regular rate and rhythm without murmur or ectopy Lungs-clear to auscultation, chest wall stable without crepitus or subcu emphysema Abdomen-hyperactive bowel sounds. Diffuse tenderness palpation. Patient does have watery stool in her ileostomy bag. There is no rebound, rigidity, or perineal signs. Extremities-intact ?4, normal range of motion, normal pulses, atraumatic] Test Results: [CBC with differential shows a white count of 9.2, hemoglobin 13, hematocrit 41, placed 170. Chemistries unremarkable. BUN was 26 and creatinine 1.46. LFTs unremarkable. Lipase was 192. Urinalysis did show small ketones but no signs of infection. CT scan of the abdomen pelvis with IV p.o. contrast showed mild distention of the upper abdominal small bowel otherwise nothing acute.] Emergency Department Course and Treatment: [Patient was given normal saline. Patient was given Zofran followed by Phenergan as she had continued nausea and vomiting. Patient continues to have significant output from her ileostomy that is watery and out of the ordinary.] Treatment Plan: [Patient will be admitted for IV hydration and symptom management] Disposition: [Admit] Impression: [Abdominal pain Vomiting Dehydration] This note was generated with [employer] dictation software. It may contain incorrect words, spelling, and punctuation that were not noted in review of the chart prior to signing ED Disposition - Plan for ED Patient: Referrals: Mala Mcgrath MD [Primary Care Provider] -
--- NOTE | 2018-07-15 13:15 | HP.PCM_ITS ---
Problem List (1) Lumbar back pain Status: Chronic (2) Chest pain Status: Resolved (3) CAD (coronary artery disease) Status: Chronic Qualifiers: [place] vs. transplanted heart: [place] heart (4) Arthritis Status: Chronic (5) Essential (primary) hypertension Status: Chronic (6) H/O coronary artery bypass surgery Status: Resolved Comment: CABG x 4 JONES-LAD, SVG-D1, SVG-OM1, SVG-LPDA 05/18/2012 (7) Atherosclerosis of coronary artery bypass graft without angina pectoris Status: Chronic Qualifiers: Comment: CABG x 4 JONES-LAD, SVG-D1, SVG-OM1, SVG-LPDA 05/18/2012 PCI-CLINTON mid D1 with a 2.25 x 12 Promus Synergy 01/12/2018 Mid LAD and Cx 08/30/2012, D1 and prox OM1 09/14/12, Prox SVG, Distal SVG to the Mid OM 10/31/2012 (8) History of coronary artery stent placement Status: Resolved Comment: PCI-CLINTON mid D1 with a 2.25 x 12 Promus Synergy 01/12/2018 Mid LAD and Cx 08/30/2012, D1 and prox OM1 09/14/12, Prox SVG, Distal SVG to the Mid OM 10/31/2012 (9) Depression Status: Chronic Qualifiers: Depression Type: unspecified Qualified Code(s): F32.9 - Major depressive disorder, single episode, unspecified (10) FCHL (familial combined hyperlipidemia) Status: Chronic (11) Ulcerative colitis Status: Chronic Comment: Status post ileostomy (12) Pulmonary hypertension Status: Chronic (13) Chronic respiratory failure Status: Chronic (14) COPD (chronic obstructive pulmonary disease) Status: Chronic (15) Anemia of chronic renal failure, stage 3 (moderate) Status: Chronic (16) Obstructive sleep apnea Status: Chronic (17) Gastroparesis Status: Suspected (18) Psoriasis Status: Chronic (19) Heart failure with preserved ejection fraction Status: Chronic (20) Acute pancreatitis Status: Resolved (21) Ileostomy status Status: Chronic (22) Surgical wound dehiscence Status: Chronic Qualifiers: (23) Abdominal pain Status: Acute Qualifiers: Abdominal location: epigastric Qualified Code(s): R10.13 - Epigastric pain (24) Shortness of breath Status: Chronic (25) Multiple falls Status: Chronic (26) Sepsis Status: Inactive (27) Right thyroid nodule Status: Chronic Comment: 1.4 centimeter right sided nodule on CT scan (28) Hallucinations Status: Inactive (29) Thyroid mass Status: Chronic (30) Syncope Status: Chronic (31) Vertigo Status: Chronic (32) Chronic renal insufficiency Status: Chronic Qualifiers: (33) Sleep apnea Status: Chronic (34) Menieres disease Status: Chronic (35) Ulcerative colitis Status: Chronic (36) Hyperlipidemia Status: Chronic Qualifiers: (37) DM2 (diabetes mellitus, type 2) Status: Chronic Qualifiers: (38) Gastroenteritis Status: Acute History of Present Illness Date of Admission: 07/15/18 Chief Complaint: Abdominal pain nausea and vomiting The patient is a 57 year old F with multiple comorbidities including CAD status post CABG and subsequent PCI, history of ulcerative colitis status post total colectomy with subsequent ileostomy creation who presents with abdominal pain nausea and vomiting. Patient symptoms started a day prior to coming in. Abdominal pain was described as crampy. Patient in addition he did experience nausea and some vomiting. She also did notice increasing output from her ileostomy. In view of the progressive nature of her symptoms she presented to the emergency department. In the emergency department imaging studies obtained demonstrate No evidence of small bowel obstruction. Mild distention of several loops of upper abdominal small bowel. Patient was also found to have impaired kidney function. Subsequently admitted to the regular nursing floor for further management. Past Medical History Past Medical History (Chronic Problems): Chronic Problems (Last Reviewed 04/26/18 @ 10:27 by Ema Henderson) Lumbar back pain (Chronic) CAD (coronary artery disease) (Chronic) Arthritis (Chronic) Essential (primary) hypertension (Chronic) Atherosclerosis of coronary artery bypass graft without angina pectoris (Chronic) CABG x 4 JONES-LAD, SVG-D1, SVG-OM1, SVG-LPDA 05/18/2012 PCI-CLINTON mid D1 with a 2.25 x 12 Promus Synergy 01/12/2018 Mid LAD and Cx 08/30/2012, D1 and prox OM1 09/14/12, Prox SVG, Distal SVG to the Mid OM 10/31/2012 Depression (Chronic) FCHL (familial combined hyperlipidemia) (Chronic) Ulcerative colitis (Chronic) Status post ileostomy Pulmonary hypertension (Chronic) Chronic respiratory failure (Chronic) COPD (chronic obstructive pulmonary disease) (Chronic) Anemia of chronic renal failure, stage 3 (moderate) (Chronic) Obstructive sleep apnea (Chronic) Psoriasis (Chronic) Heart failure with preserved ejection fraction (Chronic) Ileostomy status (Chronic) Surgical wound dehiscence (Chronic) Shortness of breath (Chronic) Multiple falls (Chronic) Right thyroid nodule (Chronic) 1.4 centimeter right sided nodule on CT scan Thyroid mass (Chronic) Syncope (Chronic) Vertigo (Chronic) Chronic renal insufficiency (Chronic) Sleep apnea (Chronic) Menieres disease (Chronic) Ulcerative colitis (Chronic) Hyperlipidemia (Chronic) DM2 (diabetes mellitus, type 2) (Chronic) Medical History: Medical History (Last Reviewed 07/15/18 @ 15:37 by Michael Etienne MD) Essential (primary) hypertension (Chronic) I10 Atherosclerosis of coronary artery bypass graft without angina pectoris (Chronic) I25.810 CABG x 4 JONES-LAD, SVG-D1, SVG-OM1, SVG-LPDA 05/18/2012 PCI-CLINTON mid D1 with a 2.25 x 12 Promus Synergy 01/12/2018 Mid LAD and Cx 08/30/2012, D1 and prox OM1 09/14/12, Prox SVG, Distal SVG to the Mid OM 10/31/2012 Thyroid mass (Chronic) E07.9 Syncope (Chronic) R55 Vertigo (Chronic) R42 Chronic renal insufficiency (Chronic) N18.9 Sleep apnea (Chronic) G47.30 Menieres disease (Chronic) H81.09 Ulcerative colitis (Chronic) K51.90 Hyperlipidemia (Chronic) E78.5 DM2 (diabetes mellitus, type 2) (Chronic) E11.9 CKD (chronic kidney disease) stage 3, GFR 30-59 ml/min N18.3 HTN (hypertension) I10 Hypertensive chronic kidney disease with stage 1 through stage 4 chronic kidney disease, or unspecified chronic kidney disease I12.9 Allergies cinnamon [Cinnamon] Allergy (Verified 07/15/18 09:45) Anaphylaxis Influenza Virus Vaccines Allergy (Verified 07/15/18 09:45) Shortness of breath liraglutide [From Victoza] Allergy (Verified 07/15/18 09:45) Anaphylaxis metronidazole [From Flagyl] Allergy (Verified 07/15/18 09:45) Hives Metronidazole HCl [From Flagyl] Allergy (Verified 07/15/18 09:45) Hives Penicillins Allergy (Verified 07/15/18 09:45) Hives Sulfa (Sulfonamide Antibiotics) Allergy (Verified 07/15/18 09:45) Hives ciprofloxacin [From Cipro] Adverse Reaction (Verified 07/15/18 09:45) Nausea codeine Adverse Reaction (Verified 07/15/18 09:45) Stops Ileostomy dicyclomine HCl [From Bentyl] Adverse Reaction (Verified 07/15/18 09:45) Nausea metformin HCl [From Glucophage] Adverse Reaction (Verified 07/15/18 09:45) Nausea ranolazine Adverse Reaction (Verified 07/15/18 09:46) Nausea/Vom/Diarrhea Cbkwztl-Vai-Dtm Reductase Inhibitor Adverse Reaction (Verified 07/15/18 09:45) Nausea/joints ache Home Medications: Ambulatory Orders Medication Instructions Recorded tramadol 50 mg tablet 50 mg PO BID PRN PRN tab 05/05/17 Furosemide [Lasix] 40 mg PO QODAY 07/07/17 insulin glargine (U-100) 100 80 units SC BID ml 09/02/17 unit/mL (3 mL) subcutaneous pen magnesium oxide 400 mg (241.3 mg 400 mg PO BID #60 tab 09/21/17 magnesium) tablet buprenorphine 7.5 mcg/hour weekly 1 patch TRANSDERMAL SA 10/18/17 transdermal patch omeprazole 20 mg capsule,delayed 20 mg PO DAILY #90 cap 10/19/17 release Aspirin E.C. [Ecotrin] 81 mg PO DAILY 01/11/18 insulin aspart (U-100) 100 unit/mL See Rx Instructions SC .COMPLEX 02/01/18 (3 mL) subcutaneous pen #30 ml atorvastatin 80 mg tablet 80 mg PO QHS #30 tab 02/09/18 miconazole nitrate 2 % topical 1 applic TOPICAL DAILY #85 g 02/09/18 powder nitroglycerin 0.4 mg sublingual 0.4 mg SUBLINGUAL Q5M PRN #25 tab 02/18/18 tablet calcium carbonate 600 mg calcium 600 mg PO BID #60 tab 04/20/18 (1,500 mg) tablet ondansetron 4 mg disintegrating 4 mg PO BID-TID PRN #30 tab 04/26/18 tablet promethazine 12.5 mg tablet 12.5 mg PO TID PRN #20 tab 04/26/18 clopidogrel 75 mg tablet 75 mg PO DAILY #30 tab 06/20/18 lorazepam 0.5 mg tablet 0.25 mg PO QHS PRN #15 tab 06/27/18 pregabalin 50 mg capsule 50 mg PO BID #60 cap 06/27/18 Baclofen [Lioresal] 10 mg PO QHS 06/30/18 Cholecalciferol (Vitamin D3) 2,000 unit PO DAILY 06/30/18 [D3-2000] Hydrocortisone 1% Crm [Hytone] 1 applic TOPICAL BID 06/30/18 Loperamide [Imodium] 2 mg PO PRN PRN 06/30/18 Metoprolol Tartrate [Lopressor 75 mg PO BID 06/30/18 (beta esha)] Venlafaxine XR [Effexor Xr] 150 mg PO DAILY 06/30/18 Isosorbide DN [Isordil] 30 mg PO BID 07/15/18 Melatonin 5 mg PO QHS 07/15/18 Surgical History: Surgical History (Last Reviewed 04/26/18 @ 10:27 by Ema Henderson) H/O coronary artery bypass surgery (Resolved) Onset Date: 05/18/12 Z95.1 CABG x 4 JONES-LAD, SVG-D1, SVG-OM1, SVG-LPDA 05/18/2012 History of coronary artery stent placement (Resolved) Onset Date: 01/12/18 Z 95.5 PCI-CLINTON mid D1 with a 2.25 x 12 Promus Synergy 01/12/2018 Mid LAD and Cx 08/30/2012, D1 and prox OM1 09/14/12, Prox SVG, Distal SVG to the Mid OM 10/31/2012 H/O colectomy Z98.890, Z90.49 H/O sinus surgery Z98.890 H/O total hysterectomy Z98.890, Z90.710 gallbdder removal history closed fissure ileostomy left thumb surgery lysis of adhesion vestibular nerve surgery for Meniere's ABD abscess removal 09/18/2017 Surgical History: angioplasty, coronary bypass surgery, hysterectomy, - Psychiatric History: Anxiety, Depression 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 Smoking Status: Former smoker - *Family History Maternal Family History: Family History (Last Reviewed 07/15/18 @ 15:37 by Michael Etienne MD) Mother CVA (cerebral vascular accident) Diabetes Brother Heart disease Myocardial infarction Pancreatitis Father Cancer Lymphoma Grandmother Myocardial infarction Sister COPD (chronic obstructive pulmonary disease) History Items: Heart Disease, - - No autoimmune disease that she is aware of Paternal Family History: Family History (Last Reviewed 07/15/18 @ 15:37 by Michael Etienne MD) Mother CVA (cerebral vascular accident) Diabetes Brother Heart disease Myocardial infarction Pancreatitis Father Cancer Lymphoma Grandmother Myocardial infarction Sister COPD (chronic obstructive pulmonary disease) History Items: Cancer - Father has H/o lymphoma, - - No autoimmune disease that she is aware of Review of Systems Constitutional: Reports: Anorexia, Weakness. Denies: Chills, Fever, Night Sweats, Weight Change HEENT: Denies: Head Aches, Sinus Congestion, Sinus Drainage Cardiovascular: Denies: Chest Pain, Orthopnea, Palpitations, Paroxysmal Noc. Dyspnea Respiratory: Denies: Cough, Shortness of breath at rest, Shortness of breath upon exertion, Sputum production Gastrointestinal: Reports: Abdominal Pain, Nausea, Vomiting. Denies: Hematemesis, Hematochezia, Melena Genitourinary: Denies: Dysuria, Frequency, Hematuria, Urgency Musculoskeletal: Denies: Joint Pain, Joint Tenderness Skin: Denies: Rash Neurological: Denies: Focal weakness, Numbness, Tingling Psychiatric: Denies: Homicidal Ideations, Suicidal Ideations Hematologic/ Lymphatic: Denies: Easy Bruising, Easy Bleeding VTE Information - Inpt Only VTE Present on Admission: No VTE Mechan Device Prophylaxis: Knee High MARLEE Hose VTE Pharm Prophylaxis ordered?: Yes Patient Problems: Active and Suspected Problems (Last Reviewed 04/26/18 @ 10:27 by Ema Henderson) Gastroenteritis (Acute) - Physical Exam General: Alert, Oriented x3, Cooperative HEENT: Atraumatic Oral: Moist Mucosa Neck: Supple, No JVD, Thyroid Normal Size and Texture Lungs: No wheeze, Diminished Cardiovascular: Regular rate, Normal S1, Normal S2, No murmurs, PMI Normal Abdomen: Bowel Sounds Present, Soft, Non-Distended Extremities: No clubbing, No cyanosis, No edema Skin: No rashes Musculoskeletal: - - Full range of motion in all major muscle groups. Psych/Mental Status: Normal Affect Vital Signs Temp Pulse Resp BP Pulse Ox 98.7 F 79 16 153/78 H 95 07/15/18 09:44 07/15/18 09:44 07/15/18 11:53 07/15/18 09:44 07/15/18 09:44 Oxygen Delivery Method Room Air Weight: 91.4 kg Body Mass Index (BMI) 31.5 Finger Stick Blood Glucose 348 Laboratory Tests Past 24 Hrs 07/15/18 07/15/18 07/15/18 10:18 10:18 10:18 WBC 9.2 RBC 4.65 Hgb 13.1 Hct 40.6 MCV 87.3 MCH 28.2 MCHC 32.3 RDW 15.4 H RDW Differential 48.9 H Plt Count 170 MPV 12.9 H Immature Gran % (Auto) 1.000 H Neut % (Auto) 60.9 Lymph % (Auto) 25.5 Prentiss % (Auto) 4.0 Eos % (Auto) 8.2 H Baso % (Auto) 0.4 Absolute Neuts (auto) 5.6 Absolute Lymphs (auto) 2.33 Total Counted Not Reportable Platelet Estimate ADEQUATE Plt Morphology Comment LARGE RBC Morphology NORM C+C Sodium 143 Potassium 4.4 Chloride 107 Carbon Dioxide 28.0 Anion Gap 8 BUN 26 H Creatinine 1.46 H Estim Creat Clear Calc 40.35 Est GFR (MDRD) Af Amer 47 L Est GFR (MDRD) Non-Af 39 L BUN/Creatinine Ratio 17.8 Glucose 256 H Lactic Acid 3.0 H Calcium 9.9 Total Bilirubin 0.50 AST 18 ALT 22 Alkaline Phosphatase 158 H Total Protein 7.0 Albumin 2.9 L Globulin 4.1 Albumin/Globulin Ratio 0.7 L Lipase 192 Urine Color Urine Clarity Urine pH Ur Specific [place] Urine Protein Urine Glucose (UA) Urine Ketones Urine Occult Blood Urine Nitrite Urine Bilirubin Urine Urobilinogen Ur Leukocyte Esterase Urine RBC Urine WBC Ur Squamous Epith Cells Urine Bacteria Urine Mucus 07/15/18 11:45 WBC RBC Hgb Hct MCV MCH MCHC RDW RDW Differential Plt Count MPV Immature Gran % (Auto) Neut % (Auto) Lymph % (Auto) [place] % (Auto) Eos % (Auto) Baso % (Auto) Absolute Neuts (auto) Absolute Lymphs (auto) Total Counted Platelet Estimate Plt Morphology Comment RBC Morphology Sodium Potassium Chloride Carbon Dioxide Anion Gap BUN Creatinine Estim Creat Clear Calc Est GFR (MDRD) Af Amer Est GFR (MDRD) Non-Af BUN/Creatinine Ratio Glucose Lactic Acid Calcium Total Bilirubin AST ALT Alkaline Phosphatase Total Protein Albumin Globulin Albumin/Globulin Ratio Lipase Urine Color Yellow Urine Clarity Sl. Cloudy Urine pH 6.0 Ur Specific [place] 1.020 Urine Protein 100 H Urine Glucose (UA) 50 H Urine Ketones 5 H Urine Occult Blood 10 H Urine Nitrite Negative Urine Bilirubin Negative Urine Urobilinogen Normal Ur Leukocyte Esterase 25 H Urine RBC 0-5 SEEN Urine WBC 0-5 SEEN Ur Squamous Epith Cells 0-5 SEEN Urine Bacteria 1+ Urine Mucus 0 SEEN Assessment/Plan All Active Problems (Last Reviewed 04/26/18 @ 10:27 by Ema Henderson) Gastroenteritis (Acute) Chest pain (Resolved) H/O coronary artery bypass surgery (Resolved 05/18/12) History of coronary artery stent placement (Resolved 01/12/18) Acute pancreatitis (Resolved) Abdominal pain (Acute) Chest pain (Resolved) Hypokalemia (Resolved) Patient is a 57-year-old lady with history of Ileostomy following total colectomy for ulcerative colitis presented with intractable nausea, vomiting abdominal discomfort and high output diarrhea from her ileostomy 1. Acute gastroenteritis suspected to be viral gastroenteritis patient has been admitted to regular nursing floor for symptomatic management. 2. Acute kidney injury secondary to #1 on IV fluids with monitoring of electrolyte 3. Renal artery disease with previous CABG and subsequent PCI did continue patient home medications 4. Hypertension-blood pressure controlled, home medications continued with dose adjustment as needed 5. Dyslipidemia-patient is on statin therapy, continued at home dose 6. Ulcerative colitis status post total colectomy with subsequent ileostomy 7. Diabetes mellitus type 2 held patient's oral medications. Patient was continued on her insulin in addition to Accu-Cheks AC and at bedtime with sliding scale coverage 8. Pulmonary hypertension 9. Depression 10. Chronic hypoxic respiratory failure 11. COPD 12. DVT prophylaxis SC Lovenox Code Visit Inpatient E&M: 17162 SNF Subs L3
[2018-07-15 14:28] LABS: Reflex Lactate? Y
[2018-07-15] MEDS: 0.9% Normal Saline 1,000 ML 200 ML IV ×2 (15:03→21:49)
[2018-07-15 16:15] LABS: Lactic Acid 2.8 mmol/L (0.4-2.0)
[2018-07-15] MEDS: Insulin Lispro 100 UNIT/ML INSULN.PEN SQ ×2 (17:03→22:27)
[2018-07-15] MEDS: oxyCODONE 5 MG Tablet 10 MG PO ×2 (17:03→21:50)
[2018-07-15] MEDS: Calcium (Elemental) 500 MG Tablet PO (17:03)
[2018-07-15 17:16] LABS: Bedside Glucose 154 mg/dL (70-110)
[2018-07-15] MEDS: Magnesium Oxide 400 MG Tablet PO (22:36)
[2018-07-15] MEDS: Pregabalin 50 MG Capsule PO (22:36)
[2018-07-15] MEDS: Isosorbide DN 30 MG Tablet PO (22:36)
[2018-07-15] MEDS: Metoprolol Tartrate 50 MG Tablet 75 MG PO (22:36)
[2018-07-15] MEDS: Atorvastatin Calcium 80 MG Tablet PO (22:38)
[2018-07-16] VITALS (9 sets, daily range): BP systolic 112–154; BP diastolic 47–95; PULSE 64–82; RESP 16–20; TEMP 36.6–37.2; O2SAT 88–99
[2018-07-16 01:56] LABS: Bedside Glucose 193 mg/dL (70-110)
[2018-07-16] MEDS: 0.9% Normal Saline 1,000 ML 200 ML IV ×3 (02:40→12:26)
[2018-07-16] MEDS: Morphine 4 MG/ML Syringe IV ×3 (06:49→17:20)
[2018-07-16] MEDS: Ondansetron 4 MG/2 ML Vial IV ×2 (06:49→12:24)
[2018-07-16] MEDS: 0.9% NaCl Peripheral Flush Adult/Peds IV ×4 (06:49→19:31)
[2018-07-16 06:50] LABS: Absolute Lymphocyte Count 2.43 X10^3/ul (0.83-4.51); Absolute Neutrophil Count 4.3 X10^3/uL (2.0-7.7); Basophil# 0.02 X10^3/uL; Basophil% 0.2 % (0-1); Eosinophil# 1.91 X10^3/uL; Eosinophils% 20.6 % (0-5); Hematocrit 36.1 % (37-47); Hemoglobin 11.7 g/dl (12.0-15.0); Lymphocyte # 2.43 X10^3/ul (4.0); Lymphocyte % 26.3 % (19-41); Mean Corp Hgb Conc 32.4 g/gl (32-36); Mean Corpuscular Hgb 28.5 pg (27.0-32.0); Mean Corpuscular Volume 87.8 fL (81-99); Mean Platelet Vol. 12.8 fl (6.2-12.0); Monocyte# 0.49 X10^3/uL; Monocyte% 5.3 % (0-10); Neutrophil # 4.28 X10^3/uL (2.7-7.7); Neutrophil % 46.3 % (47-70); Platelet Count 135 K/mm3 (150-450); RBC Distribution Width CV 15.6 % (11.6-14.6); RBC Distribution Width SD 49.3 fl (35.1-43.9); Red Blood Count 4.11 M/mm3 (4.2-5.4); White Blood Count 9.3 K/mm3 (4.4-11.0)
[2018-07-16] MEDS: Nystatin Powder 15gm Bottle 1 APPLIC TOPICAL ×3 (06:53→22:31)
[2018-07-16 07:10] LABS: Anion Gap 5 (5-15); BUN 17 mg/dL (7-18); BUN/Creat Ratio 14.2 RATIO (10-20); Calcium,Total 8.3 mg/dL (8.5-10.1); Chloride 109 mmol/L (98-107); EST Glomerular Filtration Rate 49 mL/min (>60); Est Glom Filt Rate - Afr Amer 59 mL/min (>60); Estimated Creatinine Clearance 48.48 ml/min; Glucose 125 mg/dL (74-106); Magnesium 1.3 mg/dL (1.6-2.6); Phosphorus 3.4 mg/dL (2.5-4.9); Potassium 4.1 mmol/L (3.5-5.1); Sodium Level 141 mmol/L (136-145)
[2018-07-16 07:15] LABS: Bedside Glucose 120 mg/dL (70-110)
--- NOTE | 2018-07-16 07:17 | PCM.PN.HOSP ---
Patient Problems: Active and Suspected Problems (Last Reviewed 07/15/18 @ 15:37 by Michael Etinene MD) Gastroenteritis (Acute) Subjective: Patient is a 57-year-old lady with history of Ileostomy following total colectomy for ulcerative colitis presented with intractable nausea, vomiting abdominal discomfort and high output diarrhea from her ileostomy 07/16/2018: Patient seen still complains of abdominal cramps as well as loose watery bowel movement in her ileostomy. Medium down to 1.3 Objective: GENERAL: cooperative HEENT: Atraumatic; EYES; Anicteric, Normal Conjunctiva NECK; supple, normal thyroid, RESPIRATORY: Diminished to auscultation bilaterally, CARDIOVASCULAR: Regular S1 S2, GI: soft, non-tender, ileostomy bag with liquid stools : No Renal angle tenderness; EXTREMITIES: No edema, no clubbing, MUSCULOSKELETAL: No Joint Tenderness; NEURO: Awake; no lateralizing signs. SKIN: No Rash PSYCH; Normal affect Vitals/I&O's: Vital Signs Temp Pulse Resp BP Pulse Ox 98 F 77 18 125/95 H 94 07/16/18 06:46 07/16/18 06:46 07/16/18 06:46 07/16/18 06:46 07/16/18 06:46 Oxygen Delivery Method Room Air Weight: 93.9 kg Body Mass Index (BMI) 31.8 Finger Stick Blood Glucose 348 Intake and Output for Last 24 Hours 07/14/18 07/15/18 07/16/18 23:59 23:59 23:59 Intake Total 882 / 882 1692 / 1692 Output Total 875 / 875 1450 / 1450 Balance 242 / 242 Laboratory Results 07/15/18 10:18: WBC 9.2, RBC 4.65, Hgb 13.1, Hct 40.6, MCV 87.3, MCH 28.2, MCHC 32.3, RDW 15.4 H, RDW Differential 48.9 H, Plt Count 170, MPV 12.9 H, Immature Gran % (Auto) 1.000 H, Neut % (Auto) 60.9, Lymph % (Auto) 25.5, [place] % (Auto) 4.0, Eos % (Auto) 8.2 H, Baso % (Auto) 0.4, Absolute Neuts (auto) 5.6, Absolute Lymphs (auto) 2.33, Total Counted Not Reportable, Platelet Estimate ADEQUATE, Plt Morphology Comment LARGE, RBC Morphology NORM C+C 07/15/18 10:18: Sodium 143, Potassium 4.4, Chloride 107, Carbon Dioxide 28.0, Anion Gap 8, BUN 26 H, Creatinine 1.46 H, Estim Creat Clear Calc 40.35, Est GFR (MDRD) Af Amer 47 L, Est GFR (MDRD) Non-Af 39 L, BUN/Creatinine Ratio 17.8, Glucose 256 H, Calcium 9.9, Total Bilirubin 0.50, AST 18, ALT 22, Alkaline Phosphatase 158 H, Total Protein 7.0, Albumin 2.9 L, Globulin 4.1, Albumin/Globulin Ratio 0.7 L, Lipase 192 07/15/18 10:18: Lactic Acid 3.0 H 07/15/18 11:45: Urine Color Yellow, Urine Clarity Sl. Cloudy, Urine pH 6.0, Ur Specific [place] 1.020, Urine Protein 100 H, Urine Glucose (UA) 50 H, Urine Ketones 5 H, Urine Occult Blood 10 H, Urine Nitrite Negative, Urine Bilirubin Negative, Urine Urobilinogen Normal, Ur Leukocyte Esterase 25 H, Urine RBC 0-5 SEEN, Urine WBC 0-5 SEEN, Ur Squamous Epith Cells 0-5 SEEN, Urine Bacteria 1+, Urine Mucus 0 SEEN 07/15/18 15:15: Lactic Acid 2.8 H 07/15/18 16:52: POC Glucose 154 H 07/15/18 21:31: POC Glucose 193 H 07/16/18 06:30: WBC Pending, RBC Pending, Hgb Pending, Hct Pending, MCV Pending, MCH Pending, MCHC Pending, RDW Pending, RDW Differential Pending, Plt Count Pending, Neut % (Auto) Pending, Absolute Neuts (auto) Pending, Total Counted Pending 07/16/18 06:30: Sodium 141, Potassium 4.1, Chloride 109 H, Carbon Dioxide 27.0, Anion Gap 5, BUN 17, Creatinine 1.20 H, Estim Creat Clear Calc 48.48, Est GFR (MDRD) Af Amer 59 L, Est GFR (MDRD) Non-Af 49 L, BUN/Creatinine Ratio 14.2, Glucose 125 H, Calcium 8.3 L, Phosphorus 3.4, Magnesium 1.3 L 07/16/18 06:36: POC Glucose 120 H Current Medications Acetaminophen (Tylenol) 650 mg PO Q6H PRN PRN PRN Reason: Mild Pain (1-3)/Temp > 100.7 F Al Hydroxide/Mg Hydroxide (Mylanta Ii) 30 ml PO Q6H PRN PRN PRN Reason: Gastric Burning Aspirin ([facility]) [facility] Atorvastatin Calcium (Lipitor) 80 mg PO QHS [facility] Last Admin: 07/15/18 22:38 Dose: 80 mg Baclofen (Lioresal) 10 mg PO DAILY [facility] Calcium Carbonate (Os-Sammy 500) 500 [facility] Last Admin: 07/15/18 17:03 Dose: 500 mg Cholecalciferol (Vitamin D) 2,000 unit PO DAILY [facility] Clopidogrel Bisulfate (Plavix) 75 mg PO DAILY [facility] Dextrose (D50w Syringe) 0 gm IV X1 PRN; Protocol PRN Reason: Hypoglycemia Enoxaparin Sodium (Lovenox) 40 mg SC DAILY@1000 [facility] Glucagon () 1 mg IM .X1 PRN PRN Reason: Hypoglycemia Sodium Chloride () 1,000 mls @ 200 mls/hr IV .Q5H [facility] Stop: 07/16/18 17:49 Last Admin: 07/16/18 02:40 Dose: 200 mls/hr Insulin Glargine (Lantus (Bkc)) 80 units SC BID [facility] Last Admin: 07/15/18 22:28 Dose: 80 units Insulin Human Lispro (Humalog Kwikpen (Bkc)) 0 unit SQ ACHS [facility]; Protocol Last Admin: 07/16/18 06:44 Dose: Not Given Isosorbide Dinitrate (Isordil) 30 mg PO BID [facility] Last Admin: 07/15/18 22:36 Dose: 30 mg Loperamide HCl (Imodium) 2 mg PO Q4H PRN PRN PRN Reason: LOOSE STOOLS Lorazepam (Ativan) 0.25 mg PO QHS PRN PRN Reason: anxiety Magnesium Oxide (Mag-Ox 400) 400 mg PO BID [facility] Last Admin: 07/15/18 22:36 Dose: 400 mg Melatonin (Melatonin) 3 mg PO QHS PRN PRN PRN Reason: INSOMNIA Metoprolol Tartrate (Lopressor (Beta Isaac)) 75 mg PO BID [facility] Last Admin: 07/15/18 22:36 Dose: 75 mg Morphine Sulfate () 4 mg IV Q3H PRN PRN PRN Reason: Severe pain (7-10/10) Last Admin: 07/16/18 06:49 Dose: 4 mg Nitroglycerin (Nitrostat) 0.4 mg SUBLINGUAL Q5M PRN PRN Reason: CARDIAC/CHEST PAIN Non-Formulary Medication (Buprenorphine [Buprenorphine]) 1 patch Transdermal FR [facility] Nystatin (Mycostatin Powder) 1 applic TOPICAL TID [facility]; Protocol Last Admin: 07/16/18 06:53 Dose: 1 applicatio Ondansetron HCl (Zofran) 4 mg IV Q6H PRN PRN PRN Reason: NAUSEA/VOMITING Last Admin: 07/16/18 06:49 Dose: 4 mg Oxycodone HCl (Oxyir) 10 mg PO Q4H PRN PRN PRN Reason: Moderate Pain (4-6/10) Last Admin: 07/15/18 21:50 Dose: 10 mg Pantoprazole Sodium (Protonix) 20 mg PO DAILY [facility] Pregabalin (Lyrica) 50 mg PO BID [facility] Last Admin: 07/15/18 22:36 Dose: 50 mg Promethazine HCl (Phenergan) 25 mg IM Q6H PRN PRN PRN Reason: Breakthrough nausea/vomiting Sodium Chloride () 5 - 15 ml IV UD PRN PRN Reason: SALINE FLUSH Last Admin: 07/16/18 06:49 Dose: 10 ml Tramadol HCl (Ultram) 50 mg PO BID PRN PRN PRN Reason: PAIN Venlafaxine HCl (Effexor Xr) 150 mg PO DAILY [facility] Medical Necessity - Tobacco Use Smoking Status: Former smoker Assessment/Plan All Active Problems (Last Reviewed 07/15/18 @ 15:37 by Michael Etienne MD) Gastroenteritis (Acute) Chest pain (Resolved) H/O coronary artery bypass surgery (Resolved 05/18/12) History of coronary artery stent placement (Resolved 01/12/18) Acute pancreatitis (Resolved) Abdominal pain (Acute) Chest pain (Resolved) Hypokalemia (Resolved) Patient is a 57-year-old lady with history of Ileostomy following total colectomy for ulcerative colitis presented with intractable nausea, vomiting abdominal discomfort and high output diarrhea from her ileostomy 1. Acute gastroenteritis suspected to be viral gastroenteritis patient has been admitted to regular nursing floor for symptomatic management. 2. Acute kidney injury secondary to #1 on IV fluids with monitoring of electrolyte 3. Coronary artery disease with previous CABG and subsequent PCI did continue patient home medications 4. Hypertension-blood pressure controlled, home medications continued with dose adjustment as needed 5. Dyslipidemia-patient is on statin therapy, continued at home dose 6. Ulcerative colitis status post total colectomy with subsequent ileostomy 7. Diabetes mellitus type 2 held patient's oral medications. Patient was continued on her insulin in addition to Accu-Cheks AC and at bedtime with sliding scale coverage 8. Pulmonary hypertension 9. Depression 10. Chronic hypoxic respiratory failure 11. COPD 12. DVT prophylaxis SC Lovenox 13. Hypomagnesemia corrected per protocol Code Visit Inpatient E&M: 82794 [facility] [[email or web address]] Hosp L3
[2018-07-16 07:53] LABS: POSITIVE COUNT NO; POSITIVE DIFFERENTIAL NO; POSITIVE MORPHOLOGY NO
[2018-07-16] MEDS: oxyCODONE 5 MG Tablet 10 MG PO ×2 (09:10→13:09)
[2018-07-16] MEDS: proMETHazine 25 MG/ML Syringe IM ×2 (09:11→17:20)
[2018-07-16] MEDS: Aspirin E.C. 81 MG Tablet PO (09:27)
[2018-07-16] MEDS: Calcium (Elemental) 500 MG Tablet PO ×2 (09:27→17:06)
[2018-07-16] MEDS: Magnesium Oxide 400 MG Tablet PO ×2 (09:27→22:31)
[2018-07-16] MEDS: Baclofen 10 MG Tablet PO (09:27)
[2018-07-16] MEDS: Pantoprazole Sodium 20 MG Tablet PO (09:29)
[2018-07-16] MEDS: Clopidogrel Bisulfate 75 MG Tablet PO (09:29)
[2018-07-16] MEDS: Venlafaxine XR 150 MG Capsule PO (09:30)
[2018-07-16] MEDS: Pregabalin 50 MG Capsule PO ×2 (09:39→22:39)
[2018-07-16] MEDS: Loperamide 2 MG Capsule PO ×2 (11:07→17:31)
[2018-07-16] MEDS: Metoprolol Tartrate 50 MG Tablet 75 MG PO ×2 (11:10→22:29)
[2018-07-16] MEDS: Isosorbide DN 30 MG Tablet PO ×2 (11:10→22:29)
[2018-07-16 12:15] LABS: Bedside Glucose 212 mg/dL (70-110)
[2018-07-16] MEDS: Insulin Lispro 100 UNIT/ML INSULN.PEN SQ ×3 (12:17→22:32)
[2018-07-16 16:55] LABS: Bedside Glucose 206 mg/dL (70-110)
--- NOTE | 2018-07-16 17:24 | NURSING ---
Pt was drowsy during last set of vitals. This nurse took Blood sugar and it was 206. pt spo2 95% when awaken but then down to 88% when fell asleep which was easily. 2L of oxygen applied via NC and pt much more awake. spo2 100%. Pt states she has sleep apnea and wears a bipap at home. But I don't wear it all the time.
--- NOTE | 2018-07-16 18:52 | NURSING ---
Dr. Etienne is aware that pt is Refusing Lovenox and that output is only 200ml since noon today and that IVF was Saline Locked. Order for NS at 175ml/hr.
[2018-07-16] MEDS: 0.9% Normal Saline 1,000 ML 175 ML IV (19:31)
[2018-07-16] MEDS: Atorvastatin Calcium 80 MG Tablet PO (22:29)
[2018-07-16 22:40] LABS: Bedside Glucose 170 mg/dL (70-110)
[2018-07-17] VITALS (8 sets, daily range): BP systolic 127–159; BP diastolic 57–72; PULSE 71–78; RESP 16–19; TEMP 36.2–37.1; O2SAT 93–99
[2018-07-17] MEDS: 0.9% Normal Saline 1,000 ML 175 ML IV ×2 (01:01→06:38)
[2018-07-17 06:10] LABS: Absolute Lymphocyte Count 2.26 X10^3/ul (0.83-4.51); Absolute Neutrophil Count 3.9 X10^3/uL (2.0-7.7); Basophil# 0.02 X10^3/uL; Basophil% 0.2 % (0-1); Eosinophils% 22.6 % (0-5); Hematocrit 35.5 % (37-47); Hemoglobin 11.4 g/dl (12.0-15.0); Lymphocyte # 2.26 X10^3/ul (4.0); Lymphocyte % 25.5 % (19-41); Mean Corp Hgb Conc 32.1 g/gl (32-36); Mean Corpuscular Hgb 28.5 pg (27.0-32.0); Mean Corpuscular Volume 88.8 fL (81-99); Monocyte# 0.47 X10^3/uL; Monocyte% 5.3 % (0-10); Neutrophil # 3.94 X10^3/uL (2.7-7.7); Neutrophil % 44.5 % (47-70); Platelet Count 130 K/mm3 (150-450); RBC Distribution Width CV 15.6 % (11.6-14.6); RBC Distribution Width SD 49.4 fl (35.1-43.9); White Blood Count 8.9 K/mm3 (4.4-11.0)
[2018-07-17 06:12] LABS: POSITIVE COUNT NO; POSITIVE DIFFERENTIAL NO; POSITIVE MORPHOLOGY NO
[2018-07-17 06:32] LABS: Anion Gap 5 (5-15); BUN 14 mg/dL (7-18); BUN/Creat Ratio 11.3 RATIO (10-20); Calcium,Total 7.8 mg/dL (8.5-10.1); Chloride 110 mmol/L (98-107); Creatinine, Serum 1.24 mg/dL (0.55-1.02); EST Glomerular Filtration Rate 47 mL/min (>60); Est Glom Filt Rate - Afr Amer 57 mL/min (>60); Estimated Creatinine Clearance 46.92 ml/min; Glucose 185 mg/dL (74-106); Potassium 4.5 mmol/L (3.5-5.1); Sodium Level 141 mmol/L (136-145)
[2018-07-17] MEDS: Loperamide 2 MG Capsule PO (06:35)
[2018-07-17] MEDS: Nystatin Powder 15gm Bottle 1 APPLIC TOPICAL ×3 (06:40→23:03)
[2018-07-17] MEDS: Insulin Lispro 100 UNIT/ML INSULN.PEN SQ ×4 (06:47→22:59)
[2018-07-17 07:25] LABS: Bedside Glucose 173 mg/dL (70-110)
[2018-07-17] MEDS: Ipratropium/Albuterol Sulfate 3 ML AMPUL.NEB INHALATION ×2 (08:07→21:19)
[2018-07-17] MEDS: Aspirin E.C. 81 MG Tablet PO (08:18)
[2018-07-17] MEDS: Calcium (Elemental) 500 MG Tablet PO ×2 (08:18→16:31)
--- NOTE | 2018-07-17 09:25 | VDUE_ITS ---
Reason For Study: Swelling Right Proximal Left Proximal Right jugular vein is spontaneous, widely Left subclavian vein is spontaneous, widely patent, phasic, with no intraluminal patent, phasic, with no intraluminal echogenicity noted. echogenicity noted. Right subclavian vein is spontaneous, widely patent, phasic, with no intraluminal echogenicity noted. Right Lower Arm Right radial vein is compressible. Right ulnar vein is compressible. Right Arm Right axillary vein is spontaneous, patent, phasic, competent, compressible and demonstrates augmentation. Right brachial vein is compressible. Right cephalic vein is compressible. Right basilic vein is compressible. Patient Safety Prelim given to MS3 nurse. Interpretation Summary No evidence for acute deep venous thrombosis[right] upper extremity with patent and compressible cephalic and basilic veins. Normal flow patterns left subclavian vein. Ordering Physician: Michael Etienne Referring Physician: Mala Mcgrath Performed By: Amie Webster RVT ?
--- NOTE | 2018-07-17 09:27 | PCM.PN.HOSP ---
Patient Problems: Active and Suspected Problems (Last Reviewed 07/15/18 @ 15:37 by Michael Etienne MD) Gastroenteritis (Acute) Subjective: Patient seen complains of significant swelling involving the right upper extremity overnight. Patient had apparently refused Lovenox shot for DVT prophylaxis the day prior. Requested for ultrasound of the right upper extremity. Patient also still complains of liquid stools in her ileostomy bag. Kidney function did worsen slightly overnight. Objective: GENERAL: cooperative HEENT: Atraumatic; EYES; Anicteric, Normal Conjunctiva NECK; supple, normal thyroid, RESPIRATORY: Diminished to auscultation bilaterally, CARDIOVASCULAR: Regular S1 S2, GI: soft, non-tender, ileostomy bag with liquid stools : No Renal angle tenderness; EXTREMITIES: Some swelling involving the right upper extremity MUSCULOSKELETAL: No Joint Tenderness; NEURO: Awake; no lateralizing signs. SKIN: No Rash PSYCH; Normal affect Vitals/I&O's: Vital Signs Temp Pulse Resp BP Pulse Ox 97.2 F L 77 18 142/72 H 96 07/17/18 08:39 07/17/18 08:39 07/17/18 08:39 07/17/18 08:39 07/17/18 08:39 Oxygen Flow Rate (L/min) 2 Oxygen Delivery Method Nasal Cannula Weight: 96.9 kg Body Mass Index (BMI) 31.8 Finger Stick Blood Glucose 348 Intake and Output for Last 24 Hours 07/15/18 07/16/18 07/17/18 23:59 23:59 23:59 Intake Total 882 / 882 5272 / 5272 2311 / 2311 Output Total 875 / 875 3150 / 3150 1425 / 1425 Balance 2122 / 2122 886 / 886 Laboratory Results 07/16/18 12:09: POC Glucose 212 H 07/16/18 16:50: POC Glucose 206 H 07/16/18 22:27: POC Glucose 170 H 07/17/18 05:44: WBC 8.9, RBC 4.00 L, Hgb 11.4 L, Hct 35.5 L, MCV 88.8, MCH 28.5, MCHC 32.1, RDW 15.6 H, RDW Differential 49.4 H, Plt Count 130 L, MPV 13.0 H, Immature Gran % (Auto) 1.900 H, Neut % (Auto) 44.5 L, Lymph % (Auto) 25.5, [place] % (Auto) 5.3, Eos % (Auto) 22.6 H, Baso % (Auto) 0.2, Absolute Neuts (auto) 3.9, Absolute Lymphs (auto) 2.26, Total Counted Not Reportable 07/17/18 05:44: Sodium 141, Potassium 4.5, Chloride 110 H, Carbon Dioxide 26.0, Anion Gap 5, BUN 14, Creatinine 1.24 H, Estim Creat Clear Calc 46.92, Est GFR (MDRD) Af Amer 57 L, Est GFR (MDRD) Non-Af 47 L, BUN/Creatinine Ratio 11.3, Glucose 185 H, Calcium 7.8 L 07/17/18 06:46: POC Glucose 173 H Current Medications Acetaminophen (Tylenol) 650 mg PO Q6H PRN PRN PRN Reason: Mild Pain (1-3)/Temp > 100.7 F Al Hydroxide/Mg Hydroxide (Mylanta Ii) 30 ml PO Q6H PRN PRN PRN Reason: Gastric Burning Albuterol/Ipratropium (Duoneb) 3 ml INHALATION Q4H.RT PRN PRN Reason: SOB &/OR WHEEZING Last Admin: 07/17/18 08:07 Dose: 3 ml [facility]) [facility] Last Admin: 07/17/18 08:18 Dose: 81 mg Atorvastatin Calcium (Lipitor) 80 mg PO QHS [facility] Last Admin: 07/16/18 22:29 Dose: 80 mg Baclofen (Lioresal) 10 mg PO DAILY [facility] Last Admin: 07/16/18 09:27 Dose: 10 mg Calcium Carbonate (Os-Sammy 500) [facility] Last Admin: 07/17/18 08:18 Dose: 500 mg Cholecalciferol (Vitamin D) 2,000 unit PO DAILY [facility] Last Admin: 07/16/18 09:27 Dose: 2,000 unit Clopidogrel Bisulfate (Plavix) 75 mg PO DAILY [facility] Last Admin: 07/16/18 09:29 Dose: 75 mg Dextrose (D50w Syringe) 0 gm IV X1 PRN; Protocol PRN Reason: Hypoglycemia Enoxaparin Sodium (Lovenox) 40 mg SC DAILY@1000 [facility] Last Admin: 07/16/18 09:26 Dose: Not Given Glucagon () 1 mg IM .X1 PRN PRN Reason: Hypoglycemia Sodium Chloride () 1,000 mls @ 175 mls/hr IV .Q5H43M [facility] Last Admin: 07/17/18 06:38 Dose: 175 mls/hr Insulin Glargine (Lantus (Bkc)) 80 units SC BID [facility] Last Admin: 07/16/18 22:33 Dose: 80 units Insulin Human Lispro (Humalog Kwikpen ([facility])) 0 unit SQ ACHS [facility]; Protocol Last Admin: 07/17/18 06:47 Dose: 2 u Isosorbide Dinitrate (Isordil) 30 mg PO BID [facility] Last Admin: 07/16/18 22:29 Dose: 30 mg Loperamide HCl (Imodium) 2 mg PO Q4H PRN PRN PRN Reason: LOOSE STOOLS Last Admin: 07/17/18 06:35 Dose: 2 mg Lorazepam (Ativan) 0.25 mg PO QHS PRN PRN Reason: anxiety Magnesium Oxide (Mag-Ox 400) 400 mg PO BID [facility] Last Admin: 07/16/18 22:31 Dose: 400 mg Melatonin (Melatonin) 3 mg PO QHS PRN PRN PRN Reason: INSOMNIA Metoprolol Tartrate (Lopressor (Beta Isaac)) 75 mg PO BID [facility] Last Admin: 07/16/18 22:29 Dose: 75 mg Morphine Sulfate () 4 mg IV Q3H PRN PRN PRN Reason: Severe pain (7-10/10) Last Admin: 07/16/18 17:20 Dose: 4 mg Nitroglycerin (Nitrostat) 0.4 mg SUBLINGUAL Q5M PRN PRN Reason: CARDIAC/CHEST PAIN Non-Formulary Medication (Buprenorphine [Buprenorphine]) 1 patch Transdermal FR [facility] Nystatin (Mycostatin Powder) 1 applic TOPICAL TID [facility]; Protocol Last Admin: 07/17/18 06:40 Dose: 1 applicatio Ondansetron HCl (Zofran) 4 mg IV Q6H PRN PRN PRN Reason: NAUSEA/VOMITING Last Admin: 07/16/18 12:24 Dose: 4 mg Oxycodone HCl (Oxyir) 10 mg PO Q4H PRN PRN PRN Reason: Moderate Pain (4-6/10) Last Admin: 07/16/18 13:09 Dose: 10 mg Pantoprazole Sodium (Protonix) 20 mg PO DAILY [facility] [place] Last Admin: 07/16/18 09:29 Dose: 20 mg Pregabalin (Lyrica) 50 mg PO BID [facility] Last Admin: 07/16/18 22:39 Dose: 50 mg Promethazine HCl (Phenergan) 25 mg IM Q6H PRN PRN PRN Reason: Breakthrough nausea/vomiting Last Admin: 07/16/18 17:20 Dose: 25 mg Sodium Chloride () 5 - 15 ml IV UD PRN PRN Reason: SALINE FLUSH Last Admin: 07/16/18 19:31 Dose: 10 ml Tramadol HCl (Ultram) 50 mg PO BID PRN PRN PRN Reason: PAIN Venlafaxine HCl (Effexor Xr) 150 mg PO DAILY [facility] Last Admin: 07/16/18 09:30 Dose: 150 mg Medical Necessity - Tobacco Use Smoking Status: Former smoker Assessment/Plan All Active Problems (Last Reviewed 07/15/18 @ 15:37 by Michael Etienne MD) Gastroenteritis (Acute) Chest pain (Resolved) H/O coronary artery bypass surgery (Resolved 05/18/12) History of coronary artery stent placement (Resolved 01/12/18) Acute pancreatitis (Resolved) Abdominal pain (Acute) Chest pain (Resolved) Hypokalemia (Resolved) Patient is a 57-year-old lady with history of Ileostomy following total colectomy for ulcerative colitis presented with intractable nausea, vomiting abdominal discomfort and high output diarrhea from her ileostomy 1. Acute gastroenteritis suspected to be viral gastroenteritis patient has been admitted to regular nursing floor for symptomatic management. 2. Acute kidney injury secondary to #1 on IV fluids with monitoring of electrolyte 3. Coronary artery disease with previous CABG and subsequent PCI did continue patient home medications 4. Hypertension-blood pressure controlled, home medications continued with dose adjustment as needed 5. Dyslipidemia-patient is on statin therapy, continued at home dose 6. Ulcerative colitis status post total colectomy with subsequent ileostomy 7. Diabetes mellitus type 2 held patient's oral medications. Patient was continued on her insulin in addition to Accu-Cheks AC and at bedtime with sliding scale coverage 8. Pulmonary hypertension 9. Depression 10. Chronic hypoxic respiratory failure 11. COPD 12. DVT prophylaxis SC Lovenox 13. Hypomagnesemia corrected per protocol 14. Hypokalemia corrected per protocol 15. Right upper extremity swelling venous duplex of the right upper extremity ordered to rule out DVT; resumed patient Lovenox which she had refused a day prior Code Visit Inpatient E&M: 26702 Subs Hosp L2
[2018-07-17] MEDS: Pregabalin 50 MG Capsule PO ×2 (10:34→22:56)
[2018-07-17] MEDS: Magnesium Oxide 400 MG Tablet PO ×2 (10:34→22:53)
[2018-07-17] MEDS: Baclofen 10 MG Tablet PO (10:35)
[2018-07-17] MEDS: Isosorbide DN 30 MG Tablet PO ×2 (10:35→22:53)
[2018-07-17] MEDS: Venlafaxine XR 150 MG Capsule PO (10:35)
[2018-07-17] MEDS: Metoprolol Tartrate 50 MG Tablet 75 MG PO ×2 (10:36→22:53)
[2018-07-17] MEDS: Enoxaparin 40 MG/0.4 ML Syringe SC (10:37)
[2018-07-17] MEDS: Clopidogrel Bisulfate 75 MG Tablet PO (11:08)
[2018-07-17] MEDS: Pantoprazole Sodium 20 MG Tablet PO (11:09)
[2018-07-17 11:26] LABS: Bedside Glucose 226 mg/dL (70-110)
[2018-07-17 16:45] LABS: Bedside Glucose 280 mg/dL (70-110)
[2018-07-17] MEDS: Ondansetron 4 MG/2 ML Vial IV (18:00)
[2018-07-17] MEDS: oxyCODONE 5 MG Tablet 10 MG PO ×2 (18:00→19:53)
[2018-07-17] MEDS: 0.9% NaCl Peripheral Flush Adult/Peds IV (18:03)
--- NOTE | 2018-07-17 18:03 | NURSING ---
Pt states she feels SOB, pulse ox 94% on room air. Pt states Maybe it's just anxiety, I don't know. Pt's lungs clear posterior. Oxygen applied at 2L for comfort. Pulse ox 97% on 2L. Pt states she feels less SOB. Medicated for pain and nausea as requested. No signs of respiratory distress noted. Refused aerosol treatment when offered.
[2018-07-17] MEDS: proMETHazine 25 MG/ML Syringe IM (19:54)
[2018-07-17] MEDS: Atorvastatin Calcium 80 MG Tablet PO (22:57)
[2018-07-17 23:00] LABS: Bedside Glucose 224 mg/dL (70-110)
[2018-07-18 02:00] VITALS: BP 130/65; PULSE 73; RESP 18; TEMP 36.6; O2SAT 99
[2018-07-18 06:34] LABS: Anion Gap 6 (5-15); BUN 12 mg/dL (7-18); BUN/Creat Ratio 9.8 RATIO (10-20); Calcium,Total 8.4 mg/dL (8.5-10.1); Chloride 108 mmol/L (98-107); Creatinine, Serum 1.23 mg/dL (0.55-1.02); EST Glomerular Filtration Rate 47 mL/min (>60); Est Glom Filt Rate - Afr Amer 57 mL/min (>60); Glucose 203 mg/dL (74-106); Potassium 4.1 mmol/L (3.5-5.1); Sodium Level 141 mmol/L (136-145)
[2018-07-18 06:44] LABS: Absolute Lymphocyte Count 2.05 X10^3/ul (0.83-4.51); Absolute Neutrophil Count 4.1 X10^3/uL (2.0-7.7); Basophil# 0.02 X10^3/uL; Basophil% 0.2 % (0-1); Eosinophils% 23.5 % (0-5); Hematocrit 32.9 % (37-47); Hemoglobin 10.7 g/dl (12.0-15.0); Lymphocyte # 2.05 X10^3/ul (4.0); Lymphocyte % 22.8 % (19-41); Mean Corp Hgb Conc 32.5 g/gl (32-36); Mean Corpuscular Hgb 28.8 pg (27.0-32.0); Mean Corpuscular Volume 88.7 fL (81-99); Mean Platelet Vol. 12.9 fl (6.2-12.0); Monocyte# 0.53 X10^3/uL; Monocyte% 5.9 % (0-10); Neutrophil # 4.14 X10^3/uL (2.7-7.7); Neutrophil % 46.2 % (47-70); Platelet Count 115 K/mm3 (150-450); RBC Distribution Width CV 15.3 % (11.6-14.6); RBC Distribution Width SD 47.6 fl (35.1-43.9); Red Blood Count 3.71 M/mm3 (4.2-5.4)
[2018-07-18 06:47] LABS: Differential Indicated SCAN CRITERIA MET; Eosinophil# 2.11 X10^3/uL; POSITIVE COUNT NO; POSITIVE DIFFERENTIAL YES; POSITIVE MORPHOLOGY NO
[2018-07-18 06:50] LABS: Differential Comment SCANNED
[2018-07-18] MEDS: Nystatin Powder 15gm Bottle 1 APPLIC TOPICAL (06:53)
[2018-07-18] MEDS: Insulin Lispro 100 UNIT/ML INSULN.PEN SQ (06:53)
[2018-07-18 07:06] LABS: Bedside Glucose 176 mg/dL (70-110)
[2018-07-18] MEDS: Pregabalin 50 MG Capsule PO (09:51)
[2018-07-18] MEDS: Calcium (Elemental) 500 MG Tablet PO (09:51)
[2018-07-18] MEDS: Clopidogrel Bisulfate 75 MG Tablet PO (09:51)
[2018-07-18] MEDS: Enoxaparin 40 MG/0.4 ML Syringe SC (09:51)
[2018-07-18] MEDS: Isosorbide DN 30 MG Tablet PO (09:51)
[2018-07-18] MEDS: Magnesium Oxide 400 MG Tablet PO (09:51)
[2018-07-18] MEDS: Venlafaxine XR 150 MG Capsule PO (09:51)
[2018-07-18 09:52] VITALS: PULSE 79
[2018-07-18] MEDS: Aspirin E.C. 81 MG Tablet PO (09:52)
[2018-07-18] MEDS: Pantoprazole Sodium 20 MG Tablet PO (09:52)
[2018-07-18] MEDS: Metoprolol Tartrate 50 MG Tablet 75 MG PO (09:52)
[2018-07-18] MEDS: Baclofen 10 MG Tablet PO (09:52)
[2018-07-18 09:56] VITALS: BP 140/50; PULSE 69; RESP 18; TEMP 36.7; O2SAT 99
--- NOTE | 2018-07-18 11:10 | CASEMGMT ---
RN CM Face to Face with patient for initial transition planning/care coordination assessment. RN CM introduced self and role at [facility]. Patient lying in bed, alert and oriented, significant other at bedside. Patient willing to participate in assessment and is able to answer all questions appropriately. Care providers, pharmacy, and demographics verified. Patient wishes to discharge home, denies need for home health at this time. Patient voiced concerns regarding resources regarding Medicare and Medicaid and prescription coverage. SHWETHA Coburn regarding patient's concerns for resources. Patient states she has no further needs or concerns at this time. CM to follow for discharge planning needs that may arise. PCP: Alcides Specialists: Keven, pulmonology; Lynsey, development specialist; Pranav, tissue packer; REZA Guerrier Preferred Pharmacy: [facility] Insurance: [facility] Prescription Benefit: yes Living Will/HPOA: yes, Azucena [place]air HPOA LNOK: Significant other Living Arrangements: Patient lives with sig other in 3rd floor apartment with elevator to enter the home. Patient is independent at home. Transportation: self/public DME/HHC: Patient states she has walker, cane, and bipap at home. Disposition Plan: Patient to discharge home with family support and follow-up plans in place. Amie IVAN, RN, CM
--- NOTE | 2018-07-18 11:10 | DCINST_ITS ---
- Discharge Diagnoses Current Active Problems: Current Active and Chronic Problems (Last Reviewed 07/15/18 @ 15:37 by Michael Etienne MD) Gastroenteritis (Acute) You will use the following diet at home:: Calorie/Carbohydrate Controlled (specify 1200, 1400, etc) - 1800 carrol Your food should be the consistency of: Regular Your liquids should be the consistency of: Regular/Thin Discharge Activity: Return to Normal Activity Weight Bearing Status: Full weight bearing Allergies/Adverse Reactions: Allergies cinnamon [Cinnamon] Allergy (Verified 07/15/18 09:45) Anaphylaxis Influenza Virus Vaccines Allergy (Verified 07/15/18 09:45) Shortness of breath liraglutide [From Victoza] Allergy (Verified 07/15/18 09:45) Anaphylaxis metronidazole [From Flagyl] Allergy (Verified 07/15/18 09:45) Hives Metronidazole HCl [From Flagyl] Allergy (Verified 07/15/18 09:45) Hives Penicillins Allergy (Verified 07/15/18 09:45) Hives Sulfa (Sulfonamide Antibiotics) Allergy (Verified 07/15/18 09:45) Hives ciprofloxacin [From Cipro] Adverse Reaction (Verified 07/15/18 09:45) Nausea codeine Adverse Reaction (Verified 07/15/18 09:45) Stops Ileostomy dicyclomine HCl [From Bentyl] Adverse Reaction (Verified 07/15/18 09:45) Nausea metformin HCl [From Glucophage] Adverse Reaction (Verified 07/15/18 09:45) Nausea ranolazine Adverse Reaction (Verified 07/15/18 09:46) Nausea/Vom/Diarrhea Qjcpuam-Dnl-Inc Reductase Inhibitor Adverse Reaction (Verified 07/15/18 09:45) Nausea/joints ache Medications to take at Discharge tramadol 50 mg tablet 50 mg PO BID PRN PRN tab 05/05/17 Furosemide [Lasix] 40 mg PO QODAY 07/07/17 insulin glargine (U-100) 100 unit/mL (3 mL) subcutaneous pen 80 units SC BID ml 09/02/17 buprenorphine 7.5 mcg/hour weekly transdermal patch 1 patch TRANSDERMAL SA 10/18/17 omeprazole 20 mg capsule,delayed release 20 mg PO DAILY #90 cap 10/19/17 Aspirin E.C. [Ecotrin] 81 mg PO DAILY 01/11/18 insulin aspart (U-100) 100 unit/mL (3 mL) subcutaneous pen See Rx Instructions SC .COMPLEX #30 ml 02/01/18 atorvastatin 80 mg tablet 80 mg PO QHS #30 tab 02/09/18 miconazole nitrate 2 % topical powder 1 applic TOPICAL DAILY #85 g 02/09/18 nitroglycerin 0.4 mg sublingual tablet 0.4 mg SUBLINGUAL Q5M PRN #25 tab 02/18/18 calcium carbonate 600 mg calcium (1,500 mg) tablet 600 mg PO BID #60 tab 04/20/18 ondansetron 4 mg disintegrating tablet 4 mg PO BID-TID PRN #30 tab 04/26/18 promethazine 12.5 mg tablet 12.5 mg PO TID PRN #20 tab 04/26/18 clopidogrel 75 mg tablet 75 mg PO DAILY #30 tab 06/20/18 lorazepam 0.5 mg tablet 0.25 mg PO QHS PRN #15 tab 06/27/18 pregabalin 50 mg capsule 50 mg PO BID #60 cap 06/27/18 Baclofen [Lioresal] 10 mg PO QHS 06/30/18 Cholecalciferol (Vitamin D3) [D3-2000] 2,000 unit PO DAILY 06/30/18 Hydrocortisone 1% Crm [Hytone] 1 applic TOPICAL BID 06/30/18 Metoprolol Tartrate [Lopressor (beta esha)] 75 mg PO BID 06/30/18 Venlafaxine XR [Effexor Xr] 150 mg PO DAILY 06/30/18 Isosorbide DN [Isordil] 30 mg PO BID 07/15/18 Melatonin 5 mg PO QHS 07/15/18 Loperamide [Imodium] 4 mg PO 4X/DAY PRN PRN #30 capsule 07/18/18 Metoprolol Tartrate [Lopressor (beta esha)] 75 mg PO BID tablet 07/18/18 The following prescriptions were given: Loperamide [Imodium] 4 mg PO 4X/DAY PRN PRN #30 capsule PRN Reason: Loose Stools Primary Care Physician: Mala Mcgrath MD [Primary Care Provider] - Please follow up with your Primary Care Physician in: in one week Test Results: Test results from this visit will be discussed in further detail at your follow- up appointment, if applicable.
--- NOTE | 2018-07-18 11:54 | CASEMGMT ---
Social Work Note RN REDD Cunningham updated this worker that pt had financial concerns regarding prescription coverage and Medicare coverage. SW met with pt, introduced self and role at [facility]. Pt is alert and orientated x4. SW provided pt with resources including Prescription Hope, Good [employer], [employer], [employer] [facility], RX assistance resources programs, Medicare website and contact information and Social Security Website information and contact information. Pt asked this worker if this worker is able to tell pt what her policy is and what it will cover and this worker informed pt that this worker isn't able to do that and encouraged pt to follow up with Medicare and Social Security. Pt states she has tried to contact Medicare and [employer] but no one has been able to tell her any information. SW apologized to pt but again reiterated that she will need to follow up with Medicare and/or social security in regards to policy and coverage. Pt states understanding and accepted prescription resources. Amie Coburn ANIMAL SHELTER MANAGER, TERRITORY SALES PROFESSIONAL
--- NOTE | 2018-07-18 12:01 | NURSING ---
Ostomy supplies ordered through [employer] for patient. Pt had previously been getting supplies through [facility]. Prescribing physician for supplies will be Dr Mcgrath. Pt aware that [employer] will be calling with shipment date. no further needs voiced at this time.
[2018-07-18 12:15] VITALS: BP 122/51; PULSE 73; RESP 18; TEMP 36.9; O2SAT 94
--- NOTE | 2018-07-19 14:37 | CASEMGMT ---
RN CM DC PHONE CALL DC DATE: 07/18/18 DC Disposition: Home LACE/STRATA: 12/08 Intro role of CM to patient via phone. Pt denies questions re: medications, instructions or f/u. No care improvement suggestions given. Marielena NAVARRON RN ACM
--- NOTE | 2018-07-19 18:46 | DS.PCM_ITS ---
Discharge Date and Diagnosis Date of Admission: 07/15/18 Date of Discharge: 07/18/18 - Primary Discharge Diagnosis #1 acute gastroenteritis-probably viral in nature #2 acute kidney injury secondary to acute gastroenteritis #3 coronary artery disease #4 hypertension #5 type 2 diabetes - Secondary Discharge Diagnosis Chronic Problems (Last Reviewed 07/15/18 @ 15:37 by Michael Etienne MD) Lumbar back pain (Chronic) CAD (coronary artery disease) (Chronic) Arthritis (Chronic) Essential (primary) hypertension (Chronic) Atherosclerosis of coronary artery bypass graft without angina pectoris (Chronic) CABG x 4 JONES-LAD, SVG-D1, SVG-OM1, SVG-LPDA 05/18/2012 PCI-CLINTON mid D1 with a 2.25 x 12 Promus Synergy 01/12/2018 Mid LAD and Cx 08/30/2012, D1 and prox OM1 09/14/12, Prox SVG, Distal SVG to the Mid OM 10/31/2012 Depression (Chronic) FCHL (familial combined hyperlipidemia) (Chronic) Ulcerative colitis (Chronic) Status post ileostomy Pulmonary hypertension (Chronic) COPD (chronic obstructive pulmonary disease) (Chronic) Anemia of chronic renal failure, stage 3 (moderate) (Chronic) Obstructive sleep apnea (Chronic) Psoriasis (Chronic) Heart failure with preserved ejection fraction (Chronic) Ileostomy status (Chronic) Surgical wound dehiscence (Chronic) Shortness of breath (Chronic) Multiple falls (Chronic) Right thyroid nodule (Chronic) 1.4 centimeter right sided nodule on CT scan Thyroid mass (Chronic) Syncope (Chronic) Vertigo (Chronic) Chronic renal insufficiency (Chronic) Sleep apnea (Chronic) Menieres disease (Chronic) Ulcerative colitis (Chronic) Hyperlipidemia (Chronic) DM2 (diabetes mellitus, type 2) (Chronic) Hospital Course and Treatment Consultations 07/15/18 13:08 Consult: Onc/Wound/video photographer Routine Comment: Operations: None Procedures: - - Right upper extremity venous duplex scan Summary of Care Provided: The patient is a 58 year old F was seen in the emergency room at [facility] with a chief complaint of abdominal pain, vomiting, and watery output in her ileostomy. Labs were obtained in the emergency room, white blood cell count was normal at 9.2, chemistries were remarkable for a BUN of 26 and a creatinine of 1.46. Lipase was slightly elevated at 192. CT scan of the abdomen and pelvis showed mild distention of the upper abdominal small bowel. Patient was given IV fluids, IV Zofran followed by Phenergan, patient was admitted to [place] [address], during her hospitalization her status improved. On 07/18/2018, patient was seen and examined: On examination she appeared in good health and spirits. Vital signs as documented. Skin warm and dry and without overt rashes. Neck without JVD. Lungs clear. Heart exam notable for regular rhythm, normal sounds and absence of murmurs, rubs or gallops. Abdomen unremarkable and without evidence of organomegaly, masses, or abdominal aortic enlargement, ileostomy was present. Extremities nonedematous. Neuro: Cranial nerves II through XII are grossly intact, no focal motor deficits were noted, sensation to light touch and pinprick is intact. Psych: Patient is alert and oriented x3, she does not appear anxious or depressed Patient had a venous duplex scan of her right upper extremity due to concerns due to swelling of the right arm, this did not show any evidence of clot. On 07/18/2018, patient was seen and examined and felt to be in stable condition for discharge home. - Physical Exam Vital Signs Temp Pulse Resp BP Pulse Ox 98.4 F 73 18 122/51 H 94 07/18/18 12:15 07/18/18 12:15 07/18/18 12:15 07/18/18 12:15 07/18/18 12:15 Oxygen Flow Rate (L/min) 2 Oxygen Delivery Method Room Air Weight: 96.3 kg Body Mass Index (BMI) 31.8 Finger Stick Blood Glucose 348 Intake and Output for Last 24 Hours 07/17/18 07/18/18 07/19/18 23:59 23:59 23:59 Intake Total 4361 / 4361 1600 / 1600 Output Total 3425 / 3425 2300 / 2300 Balance 936 / 936 -700 / -700 Discharge Activity: Return to Normal Activity Weight Bearing Status: Full weight bearing Home Medications: Medications to take at Discharge tramadol 50 mg tablet 50 mg PO BID PRN PRN tab 05/05/17 Furosemide [Lasix] 40 mg PO QODAY 07/07/17 insulin glargine (U-100) 100 unit/mL (3 mL) subcutaneous pen 80 units SC BID ml 09/02/17 buprenorphine 7.5 mcg/hour weekly transdermal patch 1 patch TRANSDERMAL SA 10/18/17 omeprazole 20 mg capsule,delayed release 20 mg PO DAILY #90 cap 10/19/17 Aspirin E.C. [Ecotrin] 81 mg PO DAILY 01/11/18 insulin aspart (U-100) 100 unit/mL (3 mL) subcutaneous pen See Rx Instructions SC .COMPLEX #30 ml 02/01/18 atorvastatin 80 mg tablet 80 mg PO QHS #30 tab 02/09/18 miconazole nitrate 2 % topical powder 1 applic TOPICAL DAILY #85 g 02/09/18 nitroglycerin 0.4 mg sublingual tablet 0.4 mg SUBLINGUAL Q5M PRN #25 tab 02/18/18 calcium carbonate 600 mg calcium (1,500 mg) tablet 600 mg PO BID #60 tab 04/20/18 ondansetron 4 mg disintegrating tablet 4 mg PO BID-TID PRN #30 tab 04/26/18 promethazine 12.5 mg tablet 12.5 mg PO TID PRN #20 tab 04/26/18 clopidogrel 75 mg tablet 75 mg PO DAILY #30 tab 06/20/18 lorazepam 0.5 mg tablet 0.25 mg PO QHS PRN #15 tab 06/27/18 pregabalin 50 mg capsule 50 mg PO BID #60 cap 06/27/18 Baclofen [Lioresal] 10 mg PO QHS 06/30/18 Cholecalciferol (Vitamin D3) [D3-2000] 2,000 unit PO DAILY 06/30/18 Hydrocortisone 1% Crm [Hytone] 1 applic TOPICAL BID 06/30/18 Metoprolol Tartrate [Lopressor (beta esha)] 75 mg PO BID 06/30/18 Venlafaxine XR [Effexor Xr] 150 mg PO DAILY 06/30/18 Isosorbide DN [Isordil] 30 mg PO BID 07/15/18 Melatonin 5 mg PO QHS 07/15/18 Loperamide [Imodium] 4 mg PO 4X/DAY PRN PRN #30 capsule 07/18/18 Metoprolol Tartrate [Lopressor (beta esha)] 75 mg PO BID tablet 07/18/18 Following Prescrptions Were Given to Patient: Loperamide [Imodium] 4 mg PO 4X/DAY PRN PRN #30 capsule PRN Reason: Loose Stools Primary Care Physician: Mala Mcgrath MD [Primary Care Provider] - Please follow up with your Primary Care Physician in: in one week Please Follow Up With: Mala Mcgrath MD When: July 21, 2018 Disposition: Home Minutes spent on discharge:: 32 Patient Condition:: Stable Medical Necessity - Tobacco Use Smoking Status: Former smoker Meaningful Use Info Meaningful Use Diagnoses (Choose all that apply): None applicable Code Visit Inpatient E&M: 21202 Disch Hosp
== END 2018-07-18 12:15 | disposition home or self-care (01) | DRG 392 ==
LOC: ED 10:32 → MS3 13:12
PROVIDERS: Admitting Provider Internal Medicine; Emergency Provider Emergency Medicine; Family Provider Internal Medicine; PCP Internal Medicine; Visit Provider Internal Medicine
DX: A08.4 Viral intestinal infection, unspecified (principal); N17.9 Acute kidney failure, unspecified; I13.0 Hypertensive heart and chronic kidney disease with heart failure and stage 1 through stage 4 chronic kidney disease, or unspecified chronic kidney disease; I50.30 Unspecified diastolic (congestive) heart failure; E86.0 Dehydration; I27.20 Pulmonary hypertension, unspecified; E11.9 Type 2 diabetes mellitus without complications; E83.42 Hypomagnesemia; E11.22 Type 2 diabetes mellitus with diabetic chronic kidney disease; N18.3 Chronic kidney disease, stage 3 (moderate); I25.10 Atherosclerotic heart disease of native coronary artery without angina pectoris; E78.5 Hyperlipidemia, unspecified; Z95.5 Presence of coronary angioplasty implant and graft; Z95.1 Presence of aortocoronary bypass graft; Z93.2 Ileostomy status; Z90.49 Acquired absence of other specified parts of digestive tract; Z87.891 Personal history of nicotine dependence; Z79.4 Long term (current) use of insulin; D63.1 Anemia in chronic kidney disease; J44.9 Chronic obstructive pulmonary disease, unspecified
CPT/HCPCS: 36415; 74177; 80048; 80053; 81001; 82962; 83605; 83690; 83735; 84100; 85025; 92610; 93971; 94640; 99251; 99284; J7030; Q9967; A4216; G0463; J2405

== ENCOUNTER → 2018-07-21 | Outpatient (CLI) | payer MEDICARE, MEDICAID, SELFPAY ==
[2018-07-18 11:23] VITALS: BMI 30.9
[2018-07-21 09:20] VITALS: BMI 31.8
--- NOTE | 2018-07-21 10:11 | VDLE_ITS ---
Reason For Study: swelling RIGHT LEFT CFV is compressible, spontaneous, phasic, GSV is normal. competent and demonstrates normal CFV is compressible, spontaneous, phasic, augmentation. competent, and demonstrates normal Procedure augmentation. Exam performed in department. FV is compressible, spontaneous, phasic, The exam was diagnostic. competent and demonstrates normal A preliminary report was called and/or faxed augmentation. to Roberto Lynch's office. POP V is compressible, spontaneous, phasic, competent and demonstrates normal augmentation. T/P Trunk is compressible. PTV is compressible. LT PerV is compressible. Interpretation Summary Deep veins of the left lower extremity are patent and compressible segmentally. There is no evidence of left lower extremity deep vein thrombosis. Valvular competence appears intact within the proximal deep venous system on the left . The left greater saphenous vein appears patent and compressible segmentally. Ordering Physician: Roberto Lynch Performed By: Arnulfo Parmar RVT
== END | disposition home or self-care (01) ==
LOC: CVS 10:10
PROVIDERS: Family Provider Internal Medicine; PCP Internal Medicine; Referring Provider Nurse Practitioner Family; Visit Provider Nurse Practitioner Family
DX: M79.89 Other specified soft tissue disorders (principal)
CPT/HCPCS: 93971

== ENCOUNTER → 2018-09-06 | Outpatient (CLI) | payer MEDICARE, MEDICAID, SELFPAY ==
[2018-07-18 11:23] VITALS: BMI 30.9
[2018-09-06 11:02] VITALS: BMI 31.8
--- NOTE | 2018-09-06 12:01 | RAD_ITS ---
STUDY: X-RAY CHEST REASON FOR EXAM: Female, 58 years old. Cough x 1 week. TECHNIQUE: PA and lateral views of the chest. COMPARISON: Portable AP upright chest x-ray June 30, 2018. FINDINGS: The lungs are clear and expanded. There is no demonstrated pleural abnormality. Normal size heart. There are endovascular stent(s) present. Sternal cerclage wires and vascular clips are present from a prior sternotomy and coronary artery bypass graft procedure (CABG). Normal mediastinum and marie. Normal visualized pulmonary arteries. Normal visualized aortic arch and descending thoracic aorta. There are mild degenerative changes of the lower thoracic spine. Normal visualized ribs, clavicles, and shoulders. There is no demonstrated abnormality of the visualized soft tissue structures of the upper abdomen. RAD/Chest PA and Lateral IMPRESSION: Prior median sternotomy and CABG. No acute cardiopulmonary disease. Electronically Signed: Leoncio Valles MD at 12:28 EDT , Service support ,
== END | disposition home or self-care (01) ==
LOC: RAD 12:01
PROVIDERS: Family Provider Internal Medicine; PCP Internal Medicine; Referring Provider Internal Medicine; Visit Provider Internal Medicine
DX: R05 Cough (principal); R06.02 Shortness of breath
CPT/HCPCS: 71046

== ENCOUNTER 2018-09-11 21:41 | Observation (INO) | payer MEDICARE, MEDICAID, SELFPAY ==
[2018-07-18 11:23] VITALS: BMI 30.9
[2018-09-06 11:02] VITALS: BMI 31.8
[2018-09-11 21:41] VITALS: BP 175/49; PULSE 129; RESP 36; TEMP 37.4; O2SAT 96; BMI 32.9
[2018-09-11 21:45] VITALS: O2SAT 94
[2018-09-11 21:48] VITALS: BP 175/49; PULSE 129; RESP 34; RESP 36; TEMP 37.4; O2SAT 96
--- NOTE | 2018-09-11 22:03 | EKG12_ITS ---
Test Reason : SOB Blood Pressure : / mmHG Vent. Rate : 110 BPM Atrial Rate : 110 BPM P-R Int : 152 ms QRS Dur : 084 ms QT Int : 356 ms P-R-T Axes : 037 -34 100 degrees QTc Int : 481 ms Sinus tachycardia Possible Left atrial enlargement Left axis deviation Poor R wave progression Marked ST abnormality, consider myocardial ischemia Abnormal ECG Confirmed by COURTNEY DOMINGUEZ, NIXON ([id number]), scientific editor MALIK HULL ([id number]) on 09/15/2018 11:50:32 AM Referred By: JOSEPH Confirmed By:NIXON VALDEZ MD
--- NOTE | 2018-09-11 22:05 | RAD_ITS ---
HISTORY: Cough, shortness of breath 2 weeks XR Chest 1 View TECHNIQUE: Single frontal view of chest. # of images incl. paperwork: 1 COMPARISON: 09/06/2018 FINDINGS: Normal heart size. Post sternotomy/CABG. Pulmonary vasculature appears normal. The lungs are clear. No pleural effusions or pneumothorax. No acute osseous abnormality of the thorax. RAD/Chest 1 View (Portable) IMPRESSION: 1. No acute cardiopulmonary disease. at 2259 Reported and signed by: Nazario Martinez MD Electronically Signed: Nazario Martinez MD at 22:58 EDT Tel , Service support ,
[2018-09-11 22:15] VITALS: PULSE 104; RESP 20
[2018-09-11] MEDS: Albuterol 2.5 MG/3 ML VIAL.NEB. INHALATION ×2 (22:15)
[2018-09-11 22:24] LABS: Absolute Lymphocyte Count 3.68 X10^3/ul (0.83-4.51); Absolute Neutrophil Count 5.4 X10^3/uL (2.0-7.7); Basophil# 0.04 X10^3/uL; Basophil% 0.4 % (0-1); Eosinophil# 0.47 X10^3/uL; Eosinophils% 4.6 % (0-5); Hematocrit 40.7 % (37-47); Hemoglobin 13.6 g/dl (12.0-15.0); Lymphocyte # 3.68 X10^3/ul (4.0); Mean Corp Hgb Conc 33.4 g/gl (32-36); Mean Corpuscular Hgb 28.7 pg (27.0-32.0); Mean Corpuscular Volume 85.9 fL (81-99); Mean Platelet Vol. 12.3 fl (6.2-12.0); Monocyte# 0.43 X10^3/uL; Monocyte% 4.2 % (0-10); Neutrophil # 5.37 X10^3/uL (2.7-7.7); Neutrophil % 52.5 % (47-70); POSITIVE COUNT YES; POSITIVE DIFFERENTIAL NO; POSITIVE MORPHOLOGY YES; Platelet Count 217 K/mm3 (150-450); RBC Distribution Width CV 14.9 % (11.6-14.6); Red Blood Count 4.74 M/mm3 (4.2-5.4); White Blood Count 10.2 K/mm3 (4.4-11.0)
[2018-09-11 22:26] LABS: D-Dimer Quantitative (DVT/PE) 0.41 FEU/ug/m (0.27-0.49)
[2018-09-11] MEDS: MethylPREDNISolone 125 MG/2 ML Vial IV (22:31)
[2018-09-11] MEDS: 0.9% Normal Saline 1,000 ML 150 ML IV (22:31)
[2018-09-11 22:32] LABS: Anion Gap 12 (5-15); BUN 33 mg/dL (7-18); BUN/Creat Ratio 22.9 RATIO (10-20); Calcium,Total 8.7 mg/dL (8.5-10.1); Chloride 108 mmol/L (98-107); Creatinine, Serum 1.44 mg/dL (0.55-1.02); EST Glomerular Filtration Rate 39 mL/min (>60); Est Glom Filt Rate - Afr Amer 48 mL/min (>60); Glucose 165 mg/dL (74-106); Potassium 4.1 mmol/L (3.5-5.1); Sodium Level 142 mmol/L (136-145)
--- NOTE | 2018-09-11 23:27 | HP.PCM_ITS ---
Problem List (1) COPD exacerbation Status: Acute (2) Depression with anxiety Status: Chronic (3) Lumbar back pain Status: Chronic (4) CAD (coronary artery disease) Status: Chronic Qualifiers: [place] vs. transplanted heart: [place] History of Present Illness Date of Admission: 09/11/18 Chief Complaint: sob The patient is a 58 year old F with a significant history of CAD status post CABG; former smoker; CKD; diabetes mellitus; hypertension; sleep apnea; ulcerative colitis who presented to the emergency department with 2-week history of persistent shortness of breath. Associated with her symptoms is dry cough with posttussive emesis; nausea; headache; sinus congestion; postnasal drip; vomiting and wheezing. Reportedly her symptoms started with a sore throat. Patient had unremarkable chest x-ray outpatient and completed a course of steroids without any improvement. Past Medical History Past Medical History (Chronic Problems): Chronic Problems (Last Reviewed 09/12/18 @ 01:28 by Henri Dutton MD) Depression with anxiety (Chronic) Lumbar back pain (Chronic) CAD (coronary artery disease) (Chronic) Arthritis (Chronic) Essential (primary) hypertension (Chronic) Atherosclerosis of coronary artery bypass graft without angina pectoris (Chronic) CABG x 4 JONES-LAD, SVG-D1, SVG-OM1, SVG-LPDA 05/18/2012 PCI-CLINTON mid D1 with a 2.25 x 12 Promus Synergy 01/12/2018 Mid LAD and Cx 08/30/2012, D1 and prox OM1 09/14/12, Prox SVG, Distal SVG to the Mid OM 10/31/2012 Depression (Chronic) FCHL (familial combined hyperlipidemia) (Chronic) Ulcerative colitis (Chronic) Status post ileostomy Pulmonary hypertension (Chronic) COPD (chronic obstructive pulmonary disease) (Chronic) Anemia of chronic renal failure, stage 3 (moderate) (Chronic) Obstructive sleep apnea (Chronic) Psoriasis (Chronic) Heart failure with preserved ejection fraction (Chronic) Ileostomy status (Chronic) Surgical wound dehiscence (Chronic) Shortness of breath (Chronic) Multiple falls (Chronic) Right thyroid nodule (Chronic) 1.4 centimeter right sided nodule on CT scan Thyroid mass (Chronic) Syncope (Chronic) Vertigo (Chronic) Chronic renal insufficiency (Chronic) Sleep apnea (Chronic) Menieres disease (Chronic) Ulcerative colitis (Chronic) Hyperlipidemia (Chronic) DM2 (diabetes mellitus, type 2) (Chronic) Medical History: Medical History (Last Reviewed 09/12/18 @ 04:10 by Henri Dutton MD) Essential (primary) hypertension (Chronic) I10 Atherosclerosis of coronary artery bypass graft without angina pectoris (Chronic) I25.810 CABG x 4 JONES-LAD, SVG-D1, SVG-OM1, SVG-LPDA 05/18/2012 PCI-CLINTON mid D1 with a 2.25 x 12 Promus Synergy 01/12/2018 Mid LAD and Cx 08/30/2012, D1 and prox OM1 09/14/12, Prox SVG, Distal SVG to the Mid OM 10/31/2012 Thyroid mass (Chronic) E07.9 Syncope (Chronic) R55 Vertigo (Chronic) R42 Chronic renal insufficiency (Chronic) N18.9 Sleep apnea (Chronic) G47.30 Menieres disease (Chronic) H81.09 Ulcerative colitis (Chronic) K51.90 Hyperlipidemia (Chronic) E78.5 DM2 (diabetes mellitus, type 2) (Chronic) E11.9 CKD (chronic kidney disease) stage 3, GFR 30-59 ml/min N18.3 HTN (hypertension) I10 Hypertensive chronic kidney disease with stage 1 through stage 4 chronic kidney disease, or unspecified chronic kidney disease I12.9 Allergies cinnamon [Cinnamon] Allergy (Verified 08/09/18 14:14) Anaphylaxis Influenza Virus Vaccines Allergy (Verified 08/09/18 14:14) Shortness of breath liraglutide [From Victoza] Allergy (Verified 08/09/18 14:14) Anaphylaxis metronidazole [From Flagyl] Allergy (Verified 08/09/18 14:14) Hives Metronidazole HCl [From Flagyl] Allergy (Verified 08/09/18 14:14) Hives Penicillins Allergy (Verified 08/09/18 14:14) Hives Sulfa (Sulfonamide Antibiotics) Allergy (Verified 08/09/18 14:14) Hives ciprofloxacin [From Cipro] Adverse Reaction (Verified 08/09/18 14:14) Nausea codeine Adverse Reaction (Verified 08/09/18 14:14) Stops Ileostomy dicyclomine HCl [From Bentyl] Adverse Reaction (Verified 08/09/18 14:14) Nausea metformin HCl [From Glucophage] Adverse Reaction (Verified 08/09/18 14:14) Nausea ranolazine Adverse Reaction (Verified 08/09/18 14:14) Nausea/Vom/Diarrhea Jemzzaj-Ojq-Ytp Reductase Inhibitor Adverse Reaction (Verified 08/09/18 14:14) Nausea/joints ache Home Medications: Ambulatory Orders Medication Instructions Recorded omeprazole 20 mg capsule,delayed 20 mg PO DAILY #90 cap 10/19/17 release Aspirin E.C. [Ecotrin] 81 mg PO DAILY 01/11/18 miconazole nitrate 2 % topical 1 applic TOPICAL DAILY #85 g 02/09/18 powder nitroglycerin 0.4 mg sublingual 0.4 mg SUBLINGUAL Q5M PRN #25 tab 02/18/18 tablet ondansetron 4 mg disintegrating 4 mg PO BID-TID PRN #30 tab 04/26/18 tablet clopidogrel 75 mg tablet 75 mg PO DAILY #30 tab 06/20/18 Baclofen [Lioresal] 10 mg PO QHS 06/30/18 Cholecalciferol (Vitamin D3) 2,000 unit PO DAILY 06/30/18 [D3-2000] Hydrocortisone 1% Crm [Hytone] 1 applic TOPICAL BID 06/30/18 Melatonin 6 mg PO QHS 07/15/18 Metoprolol Tartrate [Lopressor 75 mg PO BID tab 07/18/18 (beta esha)] flash glucose sensor kit See Dose Instructions .ROUTE 07/20/18 .MEDSUPPLY #1 ea albuterol sulfate HFA 90 1 - 2 puff INHALATION Q6H PRN #8.5 07/21/18 mcg/actuation aerosol inhaler g blood sugar diagnostic strips See Dose Instructions .ROUTE 07/21/18 .MEDSUPPLY #100 ea blood-glucose meter See Dose Instructions .ROUTE 07/21/18 .MEDSUPPLY #1 ea furosemide 40 mg tablet 40 mg PO DAILY tab 07/21/18 insulin aspart (U-100) 100 unit/mL See Rx Instructions SC .COMPLEX 07/29/18 (3 mL) subcutaneous pen #30 ml insulin glargine (U-100) 100 80 unit SC BID #15 ml 08/09/18 unit/mL (3 mL) subcutaneous pen promethazine 12.5 mg tablet 12.5 mg PO TID PRN #20 tab 08/09/18 pen needle, diabetic 31 gauge x See Dose Instructions .ROUTE 08/12/1807/21 .MEDSUPPLY #100 ea atorvastatin 80 mg tablet 80 mg PO QHS #90 tab 09/06/18 lorazepam 0.5 mg tablet 0.25 mg PO QHS PRN #15 tab 09/06/18 pregabalin 50 mg capsule 50 mg PO BID #60 cap 09/06/18 venlafaxine ER 150 mg 150 mg PO DAILY #90 cap 09/06/18 capsule,extended release 24 hr Isosorbide DN [Isordil] 60 mg PO BID 09/11/18 Loperamide [Imodium] 2 mg PO 4X/DAY PRN PRN 09/11/18 Magnesium Oxide 400 mg PO BID 09/11/18 calcium acetate 667 mg tablet 600 mg PO BID 09/11/18 Buprenorphine 1 patch TRANSDERM. QWEEK 09/12/18 Surgical History: Surgical History (Last Reviewed 09/12/18 @ 04:10 by Henri Dutton MD) H/O coronary artery bypass surgery (Resolved) Onset Date: 05/18/12 Z95.1 CABG x 4 JONES-LAD, SVG-D1, SVG-OM1, SVG-LPDA 05/18/2012 History of coronary artery stent placement (Resolved) Onset Date: 01/12/18 Z95.5 PCI-CLINTON mid D1 with a 2.25 x 12 Promus Synergy 01/12/2018 Mid LAD and Cx 08/30/2012, D1 and prox OM1 09/14/12, Prox SVG, Distal SVG to the Mid OM 10/31/2012 H/O colectomy Z98.890, Z90.49 H/O sinus surgery Z98.890 H/O total hysterectomy Z98.890, Z90.710 gallbdder removal history closed fissure ileostomy left thumb surgery lysis of adhesion vestibular nerve surgery for Meniere's ABD abscess removal 09/18/2017 Surgical History: angioplasty, coronary bypass surgery, hysterectomy, - Psychiatric History: Anxiety, Depression 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 Lives: Alone Smoking Status: Former smoker Alcohol: None - *Family History Maternal Family History: Family History (Last Reviewed 09/12/18 @ 01:28 by Henri Dutton MD) Mother CVA (cerebral vascular accident) Diabetes Brother Heart disease Myocardial infarction Pancreatitis Father Cancer Lymphoma Grandmother Myocardial infarction Sister COPD (chronic obstructive pulmonary disease) History Items: Heart Disease, - - No autoimmune disease that she is aware of Paternal Family History: Family History (Last Reviewed 09/12/18 @ 01:28 by Henri Dutton MD) Mother CVA (cerebral vascular accident) Diabetes Brother Heart disease Myocardial infarction Pancreatitis Father Cancer Lymphoma Grandmother Myocardial infarction Sister COPD (chronic obstructive pulmonary disease) History Items: Cancer - Father has H/o lymphoma, - - No autoimmune disease that she is aware of Review of Systems Constitutional: Denies: Chills, Fever, Weight Change HEENT: Reports: Head Aches, Nasal Congestion, Post Nasal Drip, Sinus Congestion Cardiovascular: Denies: Chest Pain, Palpitations Respiratory: Reports: Cough, Shortness of Breath, Shortness of breath at rest, Wheezing. Denies: Sputum production Gastrointestinal: Reports: Nausea, Vomiting. Denies: Abdominal Pain Genitourinary: Denies: Dysuria Musculoskeletal: Denies: Joint Pain, Joint Tenderness Skin: Denies: Rash, Wounds Neurological: Denies: Numbness, Tingling, Focal weakness Psychiatric: Reports: Anxiety, Depression. Denies: Homicidal Ideations, Suicidal Ideations Hematologic/ Lymphatic: Denies: Easy Bruising, Easy Bleeding VTE Information - Inpt Only VTE Present on Admission: No VTE Mechan Device Prophylaxis: None VTE Pharm Prophylaxis ordered?: Yes Patient Problems: Active and Suspected Problems (Last Reviewed 09/12/18 @ 01:28 by Henri Dutton MD) COPD exacerbation (Acute) - Physical Exam General: Alert, Oriented x3, Cooperative HEENT: Atraumatic, PERRLA, EOMI, Normocephalic Neck: Supple, No JVD, Negative Carotid Bruits Lungs: Rhonchi, Tachypneic, Wheezes Cardiovascular: Regular rate, No murmurs Abdomen: Bowel Sounds Present, Soft, Non Tender Extremities: No edema, Capillary Refill Less than 3 Seconds Skin: - - Scattered scaly rash Musculoskeletal: No Tenderness to Palpation of Joints or Extremities Neurological: Cranial nerves II-XII grossly intact Psych/Mental Status: Normal Affect, Appropriate Vital Signs Temp Pulse Resp BP Pulse Ox 99.4 F H 104 H 20 H 175/49 H 96 09/11/18 21:48 09/11/18 22:15 09/11/18 22:15 09/11/18 21:48 09/11/18 21:48 Oxygen Delivery Method Room Air Weight: 95.4 kg Body Mass Index (BMI) 32.9 Finger Stick Blood Glucose 348 Laboratory Tests Past 24 Hrs 09/11/18 09/11/18 09/11/18 21:55 21:55 21:55 WBC 10.2 RBC 4.74 Hgb 13.6 Hct 40.7 MCV 85.9 MCH 28.7 MCHC 33.4 RDW 14.9 H RDW Differential 47.0 H Plt Count 217 MPV 12.3 H Immature Gran % (Auto) 2.300 H Neut % (Auto) 52.5 Lymph % (Auto) 36.0 O[place]o % (Auto) 4.2 Eos % (Auto) 4.6 Baso % (Auto) 0.4 Absolute Neuts (auto) 5.4 Absolute Lymphs (auto) 3.68 Total Counted Not Reportable Diff Path Review May foll D-Dimer Quant (PE/DVT) 0.41 Sodium 142 Potassium 4.1 Chloride 108 H Carbon Dioxide 22.0 Anion Gap 12 BUN 33 H Creatinine 1.44 H Estim Creat Clear Calc 40.40 Est GFR (MDRD) Af Amer 48 L Est GFR (MDRD) Non-Af 39 L BUN/Creatinine Ratio 22.9 H Glucose 165 H Calcium 8.7 Troponin I < 0.015 Assessment/Plan All Active Problems (Last Reviewed 09/12/18 @ 01:28 by Henri Dutton MD) COPD exacerbation (Acute) Gastroenteritis (Acute) Chest pain (Resolved) H/O coronary artery bypass surgery (Resolved 05/18/12) History of coronary artery stent placement (Resolved 01/12/18) Chronic respiratory failure (Resolved) Acute pancreatitis (Resolved) Abdominal pain (Resolved) Chest pain (Resolved) Hypokalemia (Resolved) The patient is a 58 year old F with a significant history of CAD status post CABG; former smoker; CKD; diabetes mellitus; hypertension; sleep apnea; ulcerative colitis who presented to the emergency department with 2-week history of persistent shortness of breath; dry cough with posttussive emesis; nausea; headache; sinus congestion; postnasal drip; vomiting; wheezing; and sore throat consistent with acute exacerbation of COPD with probable viral etiology.. Acute COPD exacerbation Chest x-ray was interpreted as no acute cardiopulmonary. Chest x-ray was independently reviewed. I agree with radiologist interpretation. EKG independently reviewed confirms sinus tachycardia Patient with tachypnea and wheezing on examination Scheduled DuoNeb Albuterol as needed Received Solu-Medrol in the emergency department. Solu-Medrol continued. Received azithromycin in the emergency department and azithromycin continued. Will get a comprehensive respiratory pathogen panel. PRN Zofran ordered. Oxygen as needed Home Phenergan continued Lozenges as needed and Mucinex continued Headache Received Tylenol at the ED While at the [facility] she continued to complain of headache; and pain at the maxillary areas. Also she reported photophobia. Maxalt x1 ordered Diabetes mellitus On presentation her blood glucose was not within goal. Will de-escalate her home basal and prandial insulin in the hospital setting. Accu-Cheks qachs and 3 am. Correction scale insulin with accu-cheks. Chronic back pain Buprenorphine continued Baclofen continue Lyrica continued Hypertension On presentation her blood pressure was fairly stable Trend blood pressure and adjust blood pressure medication Imdur and metoprolol continued CAD Status post stent Aspirin and Plavix continued Metoprolol continued Imdur continued Atorvastatin continued CKD stage III Stable Depression /anxiety Effexor and Ativan continued Psoriasis Hydrocortisone cream continued GERD Protonix continued Insomnia Melatonin continued Obstructive sleep apnea BiPAP continued DVT prophylaxis Subcutaneous Lovenox Code Visit OBSV E&M: [id number] Initial observation care L3
--- NOTE | 2018-09-11 23:31 | ED.DCSUM_ITS ---
History of Present Illness Chief Complaint: Shortness of Breath Detail of Chief Complaint: Cough and shortness of breath Informant: Patient Onset: Weeks, - - 2 weeks Current Severity: Moderate Maximum Severity: Moderate Narrative: Patient reports a history of COPD. She reports cough and shortness of breath for the past 2 weeks. Cough is nonproductive but she does have chest congestion. She has had posttussive emesis. She has been using her inhalers regularly. She was seen by her PCP this past week that revealed normal chest x- ray. She was given a short burst of steroids. Patient does report some chest tightness from all her coughing. She denies known fever. She was transported by EMS and did receive a DuoNeb treatment in route. - Past Medical History (1) Anemia of chronic renal failure, stage 3 (moderate) Status: Chronic (2) Arthritis Status: Chronic (3) CAD (coronary artery disease) Status: Chronic (4) COPD (chronic obstructive pulmonary disease) Status: Chronic (5) DM2 (diabetes mellitus, type 2) Status: Chronic (6) Depression with anxiety Status: Chronic (7) Hyperlipidemia Status: Chronic Past Medical History - Allergies and Home Meds Allergies/Adverse Reactions: Allergies cinnamon [Cinnamon] Allergy (Verified 08/09/18 14:14) Anaphylaxis Influenza Virus Vaccines Allergy (Verified 08/09/18 14:14) Shortness of breath liraglutide [From Victoza] Allergy (Verified 08/09/18 14:14) Anaphylaxis metronidazole [From Flagyl] Allergy (Verified 08/09/18 14:14) Hives Metronidazole HCl [From Flagyl] Allergy (Verified 08/09/18 14:14) Hives Penicillins Allergy (Verified 08/09/18 14:14) Hives Sulfa (Sulfonamide Antibiotics) Allergy (Verified 08/09/18 14:14) Hives ciprofloxacin [From Cipro] Adverse Reaction (Verified 08/09/18 14:14) Nausea codeine Adverse Reaction (Verified 08/09/18 14:14) Stops Ileostomy dicyclomine HCl [From Bentyl] Adverse Reaction (Verified 08/09/18 14:14) Nausea metformin HCl [From Glucophage] Adverse Reaction (Verified 08/09/18 14:14) Nausea ranolazine Adverse Reaction (Verified 08/09/18 14:14) Nausea/Vom/Diarrhea Aaljigv-Mie-Jul Reductase Inhibitor Adverse Reaction (Verified 08/09/18 14:14) Nausea/joints ache Primary Care Physician: Mala Mcgrath MD [Primary Care Provider] - Prior records reviewed: Yes Past Medical History: - - Reviewed Surgical History: angioplasty, coronary bypass surgery, hysterectomy, - Smoking Status: Former smoker - Family History Maternal Family History: Family History (Last Reviewed 09/06/18 @ 11:01 by Erica King) Mother CVA (cerebral vascular accident) Diabetes Brother Heart disease Myocardial infarction Pancreatitis Father Cancer Lymphoma Grandmother Myocardial infarction Sister COPD (chronic obstructive pulmonary disease) Family History: Reports: Heart Disease, - - No autoimmune disease that she is aware of Paternal Family History: Family History (Last Reviewed 09/06/18 @ 11:01 by Erica King) Mother CVA (cerebral vascular accident) Diabetes Brother Heart disease Myocardial infarction Pancreatitis Father Cancer Lymphoma Grandmother Myocardial infarction Sister COPD (chronic obstructive pulmonary disease) Family History: Reports: Cancer - Father has H/o lymphoma, - - No autoimmune disease that she is aware of Review of Systems General: Denies: Chills, Fever Cardiovascular: Reports: Chest pain Respiratory: Reports: Dyspnea, Cough, - - Posttussive emesis. Denies: Sputum Gastrointestinal: Denies: Abdominal pain Neurological: Reports: Headache Physical Exam Vital Signs/Narrative: Vital Signs Temp Pulse Resp BP Pulse Ox 09/11/18 22:15 104 H 20 H 09/11/18 21:48 99.4 F H 129 H 36 H 175/49 H 96 09/11/18 21:41 99.4 F H 129 H 36 H 175/49 H 96 Inital Vital Signs reviewed: Yes General: Well nourished, Well developed, - - Speaking short sentences. Head: Normocephalic Eyes: EOMI Neck: Supple Cardiovascular: Tachycardia Respiratory: - - Mildly tachypneic with diminished air movement throughout. Abdomen: Soft, Nontender Extremities: Nontender Skin: Normal color Neurological: Alert, Oriented x3 Psychological: Normal affect Diagnostic/Tx/Re-eval Abnormal Lab Results 09/11/18 09/11/18 09/11/18 21:55 21:55 21:55 WBC 10.2 RBC 4.74 Hgb 13.6 Hct 40.7 MCV 85.9 MCH 28.7 MCHC 33.4 RDW 14.9 H RDW Differential 47.0 H Plt Count 217 MPV 12.3 H Immature Gran % (Auto) 2.300 H Neut % (Auto) 52.5 Lymph % (Auto) 36.0 Stanley % (Auto) 4.2 Eos % (Auto) 4.6 Baso % (Auto) 0.4 Absolute Neuts (auto) 5.4 Absolute Lymphs (auto) 3.68 Total Counted Not Reportable Diff Path Review May foll D-Dimer Quant (PE/DVT) 0.41 Sodium 142 Potassium 4.1 Chloride 108 H Carbon Dioxide 22.0 Anion Gap 12 BUN 33 H Creatinine 1.44 H Estim Creat Clear Calc 40.40 Est GFR (MDRD) Af Amer 48 L Est GFR (MDRD) Non-Af 39 L BUN/Creatinine Ratio 22.9 H Glucose 165 H Calcium 8.7 Troponin I < 0.015 Clinical Impression(s) from Imaging Studies Chest X-Ray 09/11/18 22:05 IMPRESSION: 1. No acute cardiopulmonary disease. at 2259 Reported and signed by: Nazario Martinez MD Electronically Signed: Nazario Martinez MD at 22:58 EDT Tel , Service support , - EKG Initial EKG Interpretation: - - Sinus tach at 110. No acute ST change. - Medical Decision Making Patient presents tachypneic and short of breath. She had diminished air movement throughout. We offered BiPAP therapy for her but she declined the sensation that she needed that. She was given 2 additional albuterol treatments and IV steroids. On repeat evaluation she is resting more comfortably. Respiratory rate is now improved to 18. Patient has tried outpatient therapy without success. She is given a p.o. dose of Zithromax and will be admitted for further treatment. ED Disposition - Plan for ED Patient: Disposition: Acute Care [facility] Diagnosis: COPD exacerbation Referrals: Mala Mcgrath MD [Primary Care Provider] -
[2018-09-11] MEDS: Azithromycin 250 MG Tablet 500 MG PO (23:47)
[2018-09-11 23:48] VITALS: BP 138/71; PULSE 85; RESP 21; TEMP 37; O2SAT 97
[2018-09-11 23:50] VITALS: BP 138/71; PULSE 85; RESP 21; TEMP 37; O2SAT 97
[2018-09-12] VITALS (9 sets, daily range): BP systolic 135–165; BP diastolic 69–83; PULSE 69–84; RESP 16–20; TEMP 36.7–37.2; O2SAT 93–96; BMI 32.1; BMI 32.2
[2018-09-12] MEDS: Acetaminophen 500 MG Tablet 1000 MG PO (00:02)
--- NOTE | 2018-09-12 00:02 | ED.RN ---
blood culture x1 in lab.
[2018-09-12 01:51] LABS: Bedside Glucose 216 mg/dL (70-110)
[2018-09-12] MEDS: guaiFENesin 1,200 MG Tablet 1200 MG PO ×2 (01:59→10:19)
[2018-09-12] MEDS: proMETHazine 25 MG Tablet 12.5 MG PO (01:59)
[2018-09-12] MEDS: Insulin Lispro 100 UNIT/ML INSULN.PEN SC ×3 (03:55→12:31)
[2018-09-12] MEDS: Rizatriptan Benzoate 10 MG Tablet PO (04:43)
--- NOTE | 2018-09-12 04:49 | CPS ---
pt hAS migraine, 2L applied
[2018-09-12] MEDS: 0.9% NaCl Peripheral Flush Adult/Peds IV (05:31)
[2018-09-12 05:51] LABS: Bedside Glucose 316 mg/dL (70-110)
--- NOTE | 2018-09-12 06:50 | EKG12_ITS ---
Test Reason : CP Blood Pressure : / mmHG Vent. Rate : 061 BPM Atrial Rate : 061 BPM P-R Int : 156 ms QRS Dur : 088 ms QT Int : 420 ms P-R-T Axes : 015 -17 138 degrees QTc Int : 422 ms Normal sinus rhythm ST & T wave abnormality, consider anterolateral ischemia Abnormal ECG When compared with ECG of 11-SEP-2018 21:59, MANUAL COMPARISON REQUIRED, DATA IS UNCONFIRMED Confirmed by SARKIS WOLF ([id number]), editor managing newspaper SHERYL MART ([id number]) on 09/15/2018 1:56:57 PM Referred By: Confirmed By:SARKIS WOLF
[2018-09-12 07:01] LABS: Bedside Glucose 332 mg/dL (70-110)
[2018-09-12] MEDS: Ipratropium/Albuterol Sulfate 3 ML AMPUL.NEB INHALATION ×2 (07:07→10:44)
[2018-09-12] MEDS: Insulin Lispro 100 UNIT/ML INSULN.PEN 35 UNIT SC ×2 (08:07→12:31)
[2018-09-12] MEDS: Calcium Acetate 667 MG Capsule PO (08:12)
[2018-09-12] MEDS: Furosemide 40 MG Tablet PO (10:17)
[2018-09-12] MEDS: Magnesium Oxide 400 MG Tablet PO (10:17)
[2018-09-12] MEDS: Isosorbide DN 30 MG Tablet 60 MG PO (10:17)
[2018-09-12] MEDS: Aspirin E.C. 81 MG Tablet PO (10:17)
[2018-09-12] MEDS: Enoxaparin 40 MG/0.4 ML Syringe SC (10:17)
[2018-09-12] MEDS: Clopidogrel Bisulfate 75 MG Tablet PO (10:17)
[2018-09-12] MEDS: Metoprolol Tartrate 50 MG Tablet 75 MG PO (10:17)
[2018-09-12] MEDS: Miconazole Nitrate Cream 1 APPLIC TOPICAL (10:19)
[2018-09-12] MEDS: Pregabalin 50 MG Capsule PO (10:31)
[2018-09-12] MEDS: Pantoprazole Sodium 20 MG Tablet PO (10:31)
[2018-09-12] MEDS: Acetaminophen 325 MG Tablet 650 MG PO (10:36)
[2018-09-12] MEDS: BENZOCAINE/MENTHOL 1 LOZENGE MUCOUS MEM (10:36)
[2018-09-12 10:40] LABS: Bedside Glucose 361 mg/dL (70-110)
--- NOTE | 2018-09-12 11:33 | DCINST_ITS ---
- Discharge Diagnoses Current Active Problems: Current Active and Chronic Problems (Last Reviewed 09/12/18 @ 04:10 by Henri Dutton MD) COPD exacerbation (Acute) You will use the following diet at home:: Calorie/Carbohydrate Controlled (specify 1200, 1400, etc) - 1800 HELENA Your food should be the consistency of: Regular Your liquids should be the consistency of: Regular/Thin Discharge Activity: Return to Normal Activity Weight Bearing Status: Full weight bearing Allergies/Adverse Reactions: Allergies cinnamon [Cinnamon] Allergy (Verified 08/09/18 14:14) Anaphylaxis Influenza Virus Vaccines Allergy (Verified 08/09/18 14:14) Shortness of breath liraglutide [From Victoza] Allergy (Verified 08/09/18 14:14) Anaphylaxis metronidazole [From Flagyl] Allergy (Verified 08/09/18 14:14) Hives Metronidazole HCl [From Flagyl] Allergy (Verified 08/09/18 14:14) Hives Penicillins Allergy (Verified 08/09/18 14:14) Hives Sulfa (Sulfonamide Antibiotics) Allergy (Verified 08/09/18 14:14) Hives ciprofloxacin [From Cipro] Adverse Reaction (Verified 08/09/18 14:14) Nausea codeine Adverse Reaction (Verified 08/09/18 14:14) Stops Ileostomy dicyclomine HCl [From Bentyl] Adverse Reaction (Verified 08/09/18 14:14) Nausea metformin HCl [From Glucophage] Adverse Reaction (Verified 08/09/18 14:14) Nausea ranolazine Adverse Reaction (Verified 08/09/18 14:14) Nausea/Vom/Diarrhea Lsqydxb-Mwk-Qdk Reductase Inhibitor Adverse Reaction (Verified 08/09/18 14:14) Nausea/joints ache Medications to take at Discharge omeprazole 20 mg capsule,delayed release 20 mg PO DAILY #90 cap 10/19/17 Aspirin E.C. [Ecotrin] 81 mg PO DAILY 01/11/18 miconazole nitrate 2 % topical powder 1 applic TOPICAL DAILY #85 g 02/09/18 nitroglycerin 0.4 mg sublingual tablet 0.4 mg SUBLINGUAL Q5M PRN #25 tab 02/18/18 ondansetron 4 mg disintegrating tablet 4 mg PO BID-TID PRN #30 tab 04/26/18 clopidogrel 75 mg tablet 75 mg PO DAILY #30 tab 06/20/18 Baclofen [Lioresal] 10 mg PO QHS 06/30/18 Cholecalciferol (Vitamin D3) [D3-2000] 2,000 unit PO DAILY 06/30/18 Hydrocortisone 1% Crm [Hytone] 1 applic TOPICAL BID 06/30/18 Melatonin 6 mg PO QHS 07/15/18 Metoprolol Tartrate [Lopressor (beta esha)] 75 mg PO BID tab 07/18/18 flash glucose sensor kit See Dose Instructions .ROUTE .MEDSUPPLY #1 ea 07/20/18 albuterol sulfate HFA 90 mcg/actuation aerosol inhaler 1 - 2 puff INHALATION Q6H PRN #8.5 g 07/21/18 blood sugar diagnostic strips See Dose Instructions .ROUTE .MEDSUPPLY #100 ea 07/21/18 blood-glucose meter See Dose Instructions .ROUTE .MEDSUPPLY #1 ea 07/21/18 furosemide 40 mg tablet 40 mg PO DAILY tab 07/21/18 insulin aspart (U-100) 100 unit/mL (3 mL) subcutaneous pen See Rx Instructions SC .COMPLEX #30 ml 07/29/18 insulin glargine (U-100) 100 unit/mL (3 mL) subcutaneous pen 80 unit SC BID #15 ml 08/09/18 promethazine 12.5 mg tablet 12.5 mg PO TID PRN #20 tab 08/09/18 pen needle, diabetic 31 gauge x 07/21 See Dose Instructions .ROUTE .MEDSUPPLY #100 ea 08/12/18 atorvastatin 80 mg tablet 80 mg PO QHS #90 tab 09/06/18 lorazepam 0.5 mg tablet 0.25 mg PO QHS PRN #15 tab 09/06/18 pregabalin 50 mg capsule 50 mg PO BID #60 cap 09/06/18 venlafaxine ER 150 mg capsule,extended release 24 hr 150 mg PO DAILY #90 cap 09/06/18 Isosorbide DN [Isordil] 60 mg PO BID 09/11/18 Loperamide [Imodium] 2 mg PO 4X/DAY PRN PRN 09/11/18 Magnesium Oxide 400 mg PO BID 09/11/18 calcium acetate 667 mg tablet 667 mg PO BID 09/11/18 Buprenorphine 1 patch TRANSDERM. QWEEK 09/12/18 MethylPREDNISolone DosePak [Medrol DosePak] 4 mg PO UD #1 box 09/12/18 The following prescriptions were given: MethylPREDNISolone DosePak [Medrol DosePak] 4 mg PO UD #1 box Transmission Status: Pending to [facility]/pharmacy #[id number] Primary Care Physician: Mala Mcgrath MD [Primary Care Provider] - Please follow up with your Primary Care Physician in: IN 1-2 WEEKS Test Results: Test results from this visit will be discussed in further detail at your follow- up appointment, if applicable.
[2018-09-12] MEDS: Venlafaxine XR 150 MG Capsule PO (11:36)
--- NOTE | 2018-09-12 15:02 | CASEMGMT ---
LW/PORachid in echart, SW printed and placed in chart. MOODY Gracia
[2018-09-13 10:18] LABS: Pathologist Review Reviewed
--- NOTE | 2018-09-14 18:04 | DS.PCM_ITS ---
Discharge Date and Diagnosis Date of Admission: 09/11/18 Date of Discharge: 09/12/18 - Primary Discharge Diagnosis #1 rhinovirus tracheobronchitis #2 exacerbation of COPD #3 chronic kidney disease stage III #4 coronary artery disease - Secondary Discharge Diagnosis Chronic Problems (Last Reviewed 09/12/18 @ 04:10 by Henri Dutton MD) Depression with anxiety (Chronic) Lumbar back pain (Chronic) CAD (coronary artery disease) (Chronic) Arthritis (Chronic) Essential (primary) hypertension (Chronic) Atherosclerosis of coronary artery bypass graft without angina pectoris (Chronic) CABG x 4 JONES-LAD, SVG-D1, SVG-OM1, SVG-LPDA 05/18/2012 PCI-CLINTON mid D1 with a 2.25 x 12 Promus Synergy 01/12/2018 Mid LAD and Cx 08/30/2012, D1 and prox OM1 09/14/12, Prox SVG, Distal SVG to the Mid OM 10/31/2012 Depression (Chronic) FCHL (familial combined hyperlipidemia) (Chronic) Ulcerative colitis (Chronic) Status post ileostomy Pulmonary hypertension (Chronic) COPD (chronic obstructive pulmonary disease) (Chronic) Anemia of chronic renal failure, stage 3 (moderate) (Chronic) Obstructive sleep apnea (Chronic) Psoriasis (Chronic) Heart failure with preserved ejection fraction (Chronic) Ileostomy status (Chronic) Surgical wound dehiscence (Chronic) Shortness of breath (Chronic) Multiple falls (Chronic) Right thyroid nodule (Chronic) 1.4 centimeter right sided nodule on CT scan Thyroid mass (Chronic) Syncope (Chronic) Vertigo (Chronic) Chronic renal insufficiency (Chronic) Sleep apnea (Chronic) Menieres disease (Chronic) Ulcerative colitis (Chronic) Hyperlipidemia (Chronic) DM2 (diabetes mellitus, type 2) (Chronic) Hospital Course and Treatment Operations: None Procedures: None Summary of Care Provided: The patient is a 58 year old F seen in the emergency room at [facility] with a chief complaint of shortness of breath. She stated the shortness of breath had persisted for 2 weeks, she had a dry cough and sometimes threw up from coughing excessively. Patient also complained of a headache and sinus congestion. Chest x-ray which had been done as an outpatient was unremarkable, patient completed a course of oral corticosteroids without improvement and came to the ER for evaluation. Chest x-ray showed no acute cardiopulmonary disease, labs showed an increased creatinine which was baseline for the patient. Patient's pulse ox was above 90% on room air. On examination, patient had bilateral expiratory wheezing, she was given aerosol treatments and IV corticosteroids, she was placed into observation status on PCU for exacerbation of COPD and because steroids are continued and she was maintained on aerosol treatments. Patient improved, her respiratory panel resulted positive for rhinovirus. On 09/12/2018, patient was seen and examined: On examination she appeared in good health and spirits. Vital signs as documented. Skin warm and dry and without overt rashes. Neck without JVD. Lungs-scattered expiratory wheezes are noted bilaterally. Heart exam notable for regular rhythm, normal sounds and absence of murmurs, rubs or gallops. Abdomen unremarkable and without evidence of organomegaly, masses, or abdominal aortic enlargement. Extremities nonedematous. Neuro: Cranial nerves II through XII are grossly intact, no focal motor deficits were noted, sensation to light touch and pinprick is intact. Psych: Benson solano is alert and oriented x3, she does not appear anxious or depressed On 09/12/2018, patient was seen and examined and discharged home in stable condition - Physical Exam Vital Signs Temp Pulse Resp BP Pulse Ox 99.0 F 84 18 165/83 H 95 09/12/18 10:09 09/12/18 11:01 09/12/18 11:01 09/12/18 10:09 09/12/18 10:09 Oxygen Flow Rate (L/min) 2 Oxygen Delivery Method Room Air Weight: 93.2 kg Body Mass Index (BMI) 32.1 Finger Stick Blood Glucose 348 Intake and Output for Last 24 Hours 09/12/18 09/13/18 09/14/18 23:59 23:59 23:59 Intake Total 860 / 860 Balance 860 / 860 Microbiology Past 72 Hours 09/12/18 00:45 Respiratory Panel (PCR) - Final Mucosa - Nasopharyngeal Rhinovirus Discharge Diet: No Restrictions Discharge Activity: Return to Normal Activity Weight Bearing Status: Full weight bearing Home Medications: Medications to take at Discharge omeprazole 20 mg capsule,delayed release 20 mg PO DAILY #90 cap 10/19/17 Aspirin E.C. [Ecotrin] 81 mg PO DAILY 01/11/18 miconazole nitrate 2 % topical powder 1 applic TOPICAL DAILY #85 g 02/09/18 nitroglycerin 0.4 mg sublingual tablet 0.4 mg SUBLINGUAL Q5M PRN #25 tab 02/18/18 ondansetron 4 mg disintegrating tablet 4 mg PO BID-TID PRN #30 tab 04/26/18 clopidogrel 75 mg tablet 75 mg PO DAILY #30 tab 06/20/18 Baclofen [Lioresal] 10 mg PO QHS 06/30/18 Cholecalciferol (Vitamin D3) [D3-2000] 2,000 unit PO DAILY 06/30/18 Hydrocortisone 1% Crm [Hytone] 1 applic TOPICAL BID 06/30/18 Melatonin 6 mg PO QHS 07/15/18 Metoprolol Tartrate [Lopressor (beta esha)] 75 mg PO BID tab 07/18/18 flash glucose sensor kit See Dose Instructions .ROUTE .MEDSUPPLY #1 ea 07/20/18 albuterol sulfate HFA 90 mcg/actuation aerosol inhaler 1 - 2 puff INHALATION Q6H PRN #8.5 g 07/21/18 blood sugar diagnostic strips See Dose Instructions .ROUTE .MEDSUPPLY #100 ea 07/21/18 blood-glucose meter See Dose Instructions .ROUTE .MEDSUPPLY #1 ea 07/21/18 furosemide 40 mg tablet 40 mg PO DAILY tab 07/21/18 insulin aspart (U-100) 100 unit/mL (3 mL) subcutaneous pen See Rx Instructions SC .COMPLEX #30 ml 07/29/18 insulin glargine (U-100) 100 unit/mL (3 mL) subcutaneous pen 80 unit SC BID #15 ml 08/09/18 promethazine 12.5 mg tablet 12.5 mg PO TID PRN #20 tab 08/09/18 pen needle, diabetic 31 gauge x 07/21 See Dose Instructions .ROUTE .MEDSUPPLY #100 ea 08/12/18 atorvastatin 80 mg tablet 80 mg PO QHS #90 tab 09/06/18 lorazepam 0.5 mg tablet 0.25 mg PO QHS PRN #15 tab 09/06/18 pregabalin 50 mg capsule 50 mg PO BID #60 cap 09/06/18 venlafaxine ER 150 mg capsule,extended release 24 hr 150 mg PO DAILY #90 cap 09/06/18 Isosorbide DN [Isordil] 60 mg PO BID 09/11/18 Loperamide [Imodium] 2 mg PO 4X/DAY PRN PRN 09/11/18 Magnesium Oxide 400 mg PO BID 09/11/18 calcium acetate 667 mg tablet 667 mg PO BID 09/11/18 Buprenorphine 1 patch TRANSDERM. QWEEK 09/12/18 MethylPREDNISolone DosePak [Medrol DosePak] 4 mg PO UD #1 box 09/12/18 Following Prescrptions Were Given to Patient: MethylPREDNISolone DosePak [Medrol DosePak] 4 mg PO UD #1 box Transmission Status: Received by [facility]/pharmacy #[id number] Primary Care Physician: Mala Mcgrath MD [Primary Care Provider] - Please follow up with your Primary Care Physician in: IN 1-2 WEEKS Disposition: Home Minutes spent on discharge:: 25 Patient Condition:: Stable Medical Necessity - Tobacco Use Smoking Status: Former smoker Tobacco Use: Cigarettes Meaningful Use Info Meaningful Use Diagnoses (Choose all that apply): None applicable Code Visit OBSV E&M: 49630 Observation care discharge
== END 2018-09-12 11:33 | disposition home or self-care (01) ==
LOC: ED 23:45 → PCU 23:55
PROVIDERS: Admitting Provider Hospitalist; Emergency Provider Emergency Medicine; Family Provider Internal Medicine; PCP Internal Medicine; Visit Provider Internal Medicine
DX: J44.0 Chronic obstructive pulmonary disease with (acute) lower respiratory infection (principal); J44.1 Chronic obstructive pulmonary disease with (acute) exacerbation; J20.6 Acute bronchitis due to rhinovirus; I25.10 Atherosclerotic heart disease of native coronary artery without angina pectoris; N18.3 Chronic kidney disease, stage 3 (moderate); G47.33 Obstructive sleep apnea (adult) (pediatric); I27.20 Pulmonary hypertension, unspecified; L40.9 Psoriasis, unspecified; K51.90 Ulcerative colitis, unspecified, without complications; E11.22 Type 2 diabetes mellitus with diabetic chronic kidney disease; I13.0 Hypertensive heart and chronic kidney disease with heart failure and stage 1 through stage 4 chronic kidney disease, or unspecified chronic kidney disease; E04.1 Nontoxic single thyroid nodule; I50.32 Chronic diastolic (congestive) heart failure; K21.9 Gastro-esophageal reflux disease without esophagitis; M19.90 Unspecified osteoarthritis, unspecified site; D63.1 Anemia in chronic kidney disease; F41.8 Other specified anxiety disorders; E78.49 Other hyperlipidemia; Z87.891 Personal history of nicotine dependence; Z93.2 Ileostomy status; Z79.899 Other long term (current) drug therapy; Z79.4 Long term (current) use of insulin; Z79.82 Long term (current) use of aspirin
CPT/HCPCS: 71045; 80048; 82962; 84484; 85025; 85379; 87633; 93005; 94640; 94760; 96361; 96372; 96374; 96376; 99218; 99285; J7030; A4216; G0378

== ENCOUNTER 2019-02-20 10:47 | Outpatient (RCR) | payer MEDICARE, MEDICAID, SELFPAY ==
[2018-07-18 11:23] VITALS: BMI 30.9
[2018-12-15 08:27] VITALS: BMI 31.6
[2019-02-14 13:36] VITALS: BMI 31.6
== END 2019-03-07 23:59 ==
LOC: NS 10:47
PROVIDERS: Family Provider Internal Medicine; PCP Internal Medicine; Visit Provider Internal Medicine Gastroenterology
DX: Z71.3 Dietary counseling and surveillance (principal); E11.22 Type 2 diabetes mellitus with diabetic chronic kidney disease; N18.3 Chronic kidney disease, stage 3 (moderate); E11.43 Type 2 diabetes mellitus with diabetic autonomic (poly)neuropathy
CPT/HCPCS: 97802

== ENCOUNTER 2019-03-24 11:39 | Emergency (ER) | payer MEDICARE, MEDICAID, SELFPAY ==
[2018-07-18 11:23] VITALS: BMI 30.9
[2019-03-10 13:04] VITALS: BMI 30.8
[2019-03-24 11:41] VITALS: BP 130/78; PULSE 81; RESP 17; TEMP 36.1; O2SAT 99; BMI 31.8
--- NOTE | 2019-03-24 12:14 | EKG12_ITS ---
Test Reason : ABD PAIN Blood Pressure : / mmHG Vent. Rate : 069 BPM Atrial Rate : 069 BPM P-R Int : 160 ms QRS Dur : 090 ms QT Int : 370 ms P-R-T Axes : 005 -23 149 degrees QTc Int : 396 ms Normal sinus rhythm Left ventricular hypertrophy with repolarization abnormality Abnormal ECG Confirmed by CHLOÉ DOMINGUEZ, AL ([id number]), photographic editor SHERYL MART ([id number]) on 03/28/2019 9:03:31 AM Referred By: Mala Mcgrath Confirmed By:AL LUEVANO MD
--- NOTE | 2019-03-24 12:15 | ED.DCSUM_ITS ---
History of Present Illness Chief Complaint: Abd Pain Informant: Patient Onset: Yesterday Context: Gradual Onset Timing: Waxes and wanes Current Severity: Moderate Maximum Severity: Severe Narrative: Upper abdominal pain with nausea and vomiting that started yesterday. She states she feels lightheaded. She denies fever or chills. She has an ileostomy has had normal output in this. - Past Medical History (1) Pancreatitis Status: Resolved (2) Anemia of chronic renal failure, stage 3 (moderate) Status: Chronic (3) Arthritis Status: Chronic (4) CAD (coronary artery disease) Status: Chronic (5) COPD (chronic obstructive pulmonary disease) Status: Chronic (6) DM2 (diabetes mellitus, type 2) Status: Chronic (7) Depression with anxiety Status: Chronic (8) Essential (primary) hypertension Status: Chronic (9) FCHL (familial combined hyperlipidemia) Status: Chronic (10) Heart failure with preserved ejection fraction Status: Chronic (11) Ileostomy status Status: Chronic (12) Menieres disease Status: Chronic (13) Obstructive sleep apnea Status: Chronic (14) Ulcerative colitis Status: Chronic Comment: Status post ileostomy (15) Gastroparesis Status: Suspected (16) History of coronary artery stent placement Status: Resolved Comment: PCI-CLINTON mid D1 with a 2.25 x 12 Promus Synergy 01/12/2018 Mid LAD and Cx 08/30/2012, D1 and prox OM1 09/14/12, Prox SVG, Distal SVG to the Mid OM 10/31/2012 Past Medical History - Allergies and Home Meds Allergies/Adverse Reactions: Allergies cinnamon [Cinnamon] Allergy (Verified 03/24/19 11:40) Anaphylaxis Influenza Virus Vaccines Allergy (Verified 03/24/19 11:40) Shortness of breath liraglutide [From Victoza] Allergy (Verified 03/24/19 11:40) Anaphylaxis metronidazole [From Flagyl] Allergy (Verified 03/24/19 11:40) Hives Metronidazole HCl [From Flagyl] Allergy (Verified 03/24/19 11:40) Hives Penicillins Allergy (Verified 03/24/19 11:40) Hives Sulfa (Sulfonamide Antibiotics) Allergy (Verified 03/24/19 11:40) Hives ciprofloxacin [From Cipro] Adverse Reaction (Verified 03/24/19 11:40) Nausea codeine Adverse Reaction (Verified 03/24/19 11:40) Stops Ileostomy dicyclomine HCl [From Bentyl] Adverse Reaction (Verified 03/24/19 11:40) Nausea metformin HCl [From Glucophage] Adverse Reaction (Verified 03/24/19 11:40) Nausea ranolazine Adverse Reaction (Verified 03/24/19 11:40) Nausea/Vom/Diarrhea Zrfoamy-Lnt-Uup Reductase Inhibitor Adverse Reaction (Verified 03/24/19 11:40) Nausea/joints ache Primary Care Physician: Mala Mcgrath MD [Primary Care Provider] - Prior records reviewed: Yes Surgical History: angioplasty, coronary bypass surgery, hysterectomy, - Smoking Status: Former smoker - Family History Maternal Family History: Family History (Last Reviewed 02/21/19 @ 07:30 by Heath Dewitt MD) Mother CVA (cerebral vascular accident) Diabetes Brother Heart disease Myocardial infarction Pancreatitis Father Cancer Lymphoma Grandmother Myocardial infarction Sister COPD (chronic obstructive pulmonary disease) Family History: Reports: Heart Disease, - - No autoimmune disease that she is aware of Paternal Family History: Family History (Last Reviewed 02/21/19 @ 07:30 by Heath Dewitt MD) Mother CVA (cerebral vascular accident) Diabetes Brother Heart disease Myocardial infarction Pancreatitis Father Cancer Lymphoma Grandmother Myocardial infarction Sister COPD (chronic obstructive pulmonary disease) Family History: Reports: Cancer - Father has H/o lymphoma, - - No autoimmune disease that she is aware of Review of Systems General: Denies: Chills, Fever Eyes: Denies: Visual changes - bilaterally ENT: Denies: Bilateral ear pain Cardiovascular: Denies: Chest pain Respiratory: Denies: Dyspnea Gastrointestinal: Reports: Abdominal pain, Nausea, Vomiting. Denies: Diarrhea, Constipation Musculoskeletal: Denies: Back pain, Extremity Pain Skin: Denies: Rash Neurological: Denies: Headache Allergy: Denies: Uticaria Physical Exam Vital Signs/Narrative: Vital Signs Temp Pulse Resp BP Pulse Ox 03/24/19 11:41 96.9 F L 81 17 130/78 H 99 Inital Vital Signs reviewed: Yes General: Well nourished, Well developed Head: Normocephalic ENT: Moist mucous membranes Neck: Supple Cardiovascular: Regular rate, Regular rhythm Respiratory: No distress, CTA bilaterally Abdomen: Soft, Normal bowel sounds, Tender - Epigastric tenderness palpation. Extremities: Nontender Skin: Normal color, No rash Neurological: Alert, Oriented x3 Psychological: Normal affect Diagnostic/Tx/Re-eval Laboratory Results 03/24/19 03/24/19 03/24/19 12:30 12:30 12:30 WBC 10.8 RBC 4.65 Hgb 13.1 Hct 40.8 MCV 87.7 MCH 28.2 MCHC 32.1 RDW Std Deviation 48.2 H RDW Coeff of Jan 14.9 H Plt Count 138 L MPV 12.9 H Immature Gran % (Auto) 4.300 H Neut % (Auto) 66.4 Lymph % (Auto) 21.1 [place] % (Auto) 5.8 Eos % (Auto) 1.7 Baso % (Auto) 0.7 Absolute Neuts (auto) 7.2 Absolute Lymphs (auto) 2.27 Nucleated RBC % 0 Sodium 139 Potassium 4.4 Chloride 108 H Carbon Dioxide 24.0 Anion Gap 7 BUN 25 H Creatinine 1.29 H Estim Creat Clear Calc 45.10 Est GFR (MDRD) Af Amer 54 L Est GFR (MDRD) Non-Af 45 L BUN/Creatinine Ratio 19.4 Glucose 257 H Calcium 9.5 Total Bilirubin 0.70 Direct Bilirubin 0.14 AST 17 ALT 29 Alkaline Phosphatase 125 H Troponin I < 0.015 Total Protein 6.6 Albumin 2.9 L Globulin 3.7 Lipase 240 - EKG Initial EKG Interpretation: Sinus Rhythm - Sinus at 69. Anterolateral T wave inversion and mild ST depression, unchanged when compared to prior study. - Medical Decision Making Patient was given morphine, Phenergan, IV fluids. On repeat evaluation she does feel improved. She does still have some upper abdominal pain. Patient be given prescription for [place], Phenergan, and Pepcid at home. ED Disposition - Plan for ED Patient: Disposition: Home or Assisted Living Diagnosis: Gastroenteritis Instructions: GASTROENTERITIS, Viral (4y-Adult) Prescriptions: Hydrocodone Bitart/Apap 5-325 [[place] 5MG-325MG] 1 tablet PO Q6H PRN PRN 3 Days #10 tablet PRN Reason: Pain Transmission Status: Received by [facility]pharmacy #[id number] Famotidine [Pepcid] 20 mg PO BID #28 tab Transmission Status: Pending to [facility] #[id number] proMETHazine tablet [Phenergan] 25 mg PO Q6H PRN PRN #10 tab PRN Reason: Nausea Transmission Status: Pending to [facility] #[id number] Referrals: Mala Mcgrath MD [Primary Care Provider] - 3-5 Days if not improving
[2019-03-24 12:39] LABS: Absolute Lymphocyte Count 2.27 X10^3/uL (0.83-4.51); Absolute Neutrophil Count 7.2 X10^3/uL (2.0-7.7); Basophil# 0.08 X10^3/uL; Basophil% 0.7 % (0-1); Eosinophil# 0.18 X10^3/uL; Eosinophils% 1.7 % (0-5); Hematocrit 40.8 % (37-47); Hemoglobin 13.1 g/dL (12.0-15.0); Lymphocyte # 2.27 X10^3/ul (4.0); Lymphocyte % 21.1 % (19-41); Mean Corp Hgb Conc 32.1 g/dL (32-36); Mean Corpuscular Hgb 28.2 pg (27.0-32.0); Mean Corpuscular Volume 87.7 fL (81-99); Mean Platelet Vol. 12.9 fl (6.2-12.0); Monocyte# 0.62 X10^3/uL; Monocyte% 5.8 % (0-10); NRBC Flagged by Analyzer 0 % (0-5); Neutrophil # 7.15 X10^3/uL (2.7-7.7); Neutrophil % 66.4 % (47-70); Platelet Count 138 K/mm3 (150-450); RBC Distribution Width CV 14.9 % (11.6-14.6); RBC Distribution Width SD 48.2 fl (35.1-43.9); Red Blood Count 4.65 M/mm3 (4.2-5.4); White Blood Count 10.8 K/mm3 (4.4-11.0)
[2019-03-24] MEDS: 0.9% Normal Saline 1,000 ML 150 ML IV (12:41)
[2019-03-24] MEDS: proMETHazine 25 MG/ML Syringe 12.5 MG IV (12:42)
[2019-03-24] MEDS: Morphine 4 MG/ML Syringe IV (12:42)
[2019-03-24 12:57] LABS: AST(SGOT) 17 U/L (15-37); Alanine Aminotransfer ALT/SGPT 29 U/L (13-56); Albumin, Serum 2.9 g/dL (3.2-5.0); Alkaline Phosphatase 125 U/L (45-117); Anion Gap 7 (5-15); BUN 25 mg/dL (7-18); BUN/Creat Ratio 19.4 RATIO (10-20); Bilirubin, Direct 0.14 mg/dL (0.00-0.30); Calcium,Total 9.5 mg/dL (8.5-10.1); Chloride 108 mmol/L (98-107); Creatinine, Serum 1.29 mg/dL (0.55-1.02); EST Glomerular Filtration Rate 45 mL/min (>60); Est Glom Filt Rate - Afr Amer 54 mL/min (>60); Globulin 3.7 g/dL (2.2-4.2); Glucose 257 mg/dL (74-106); Lipase 240 U/L (73-393); Potassium 4.4 mmol/L (3.5-5.1); Protein, Total 6.6 g/dL (6.4-8.2); Sodium Level 139 mmol/L (136-145)
[2019-03-24 14:48] VITALS: BP 149/63; PULSE 66; RESP 17; O2SAT 96
== END 2019-03-24 14:50 | disposition home or self-care (01) ==
PROVIDERS: Emergency Provider Emergency Medicine; PCP Internal Medicine; Referring Provider Internal Medicine
DX: K52.9 Noninfective gastroenteritis and colitis, unspecified (principal); I13.0 Hypertensive heart and chronic kidney disease with heart failure and stage 1 through stage 4 chronic kidney disease, or unspecified chronic kidney disease; I50.32 Chronic diastolic (congestive) heart failure; N18.3 Chronic kidney disease, stage 3 (moderate); E11.22 Type 2 diabetes mellitus with diabetic chronic kidney disease; I25.10 Atherosclerotic heart disease of native coronary artery without angina pectoris; J44.9 Chronic obstructive pulmonary disease, unspecified; F32.9 Major depressive disorder, single episode, unspecified; F41.9 Anxiety disorder, unspecified; E78.49 Other hyperlipidemia; G47.33 Obstructive sleep apnea (adult) (pediatric); K51.90 Ulcerative colitis, unspecified, without complications; E11.43 Type 2 diabetes mellitus with diabetic autonomic (poly)neuropathy; D63.1 Anemia in chronic kidney disease; K31.84 Gastroparesis; Z93.2 Ileostomy status; Z95.5 Presence of coronary angioplasty implant and graft; Z79.82 Long term (current) use of aspirin; Z79.4 Long term (current) use of insulin; Z79.899 Other long term (current) drug therapy; Z87.891 Personal history of nicotine dependence
CPT/HCPCS: 80048; 80076; 83690; 84484; 85025; 93005; 96361; 96374; 96375; 99284; J7030; A4216

== ENCOUNTER 2019-03-30 12:48 | Outpatient (RCR) | payer MEDICARE, MEDICAID, SELFPAY ==
[2018-07-18 11:23] VITALS: BMI 30.9
[2019-02-20 14:22] VITALS: BMI 31.6
== END 2019-04-07 23:59 ==
LOC: NS 12:48
PROVIDERS: Family Provider Internal Medicine; PCP Internal Medicine; Visit Provider Internal Medicine Gastroenterology
DX: Z71.3 Dietary counseling and surveillance (principal); E11.22 Type 2 diabetes mellitus with diabetic chronic kidney disease; N18.3 Chronic kidney disease, stage 3 (moderate); E11.43 Type 2 diabetes mellitus with diabetic autonomic (poly)neuropathy; K31.84 Gastroparesis
CPT/HCPCS: 97803

== ENCOUNTER 2019-04-16 14:05 | Emergency (ER) | payer MEDICARE, MEDICAID, SELFPAY ==
[2018-07-18 11:23] VITALS: BMI 30.9
[2019-04-11 13:52] VITALS: BMI 31.8
[2019-04-16 14:06] VITALS: BP 193/91; PULSE 101; RESP 23; TEMP 36.8; O2SAT 96; BMI 33.6
--- NOTE | 2019-04-16 14:12 | EKG12_ITS ---
Test Reason : CP Blood Pressure : / mmHG Vent. Rate : 105 BPM Atrial Rate : 105 BPM P-R Int : 146 ms QRS Dur : 088 ms QT Int : 342 ms P-R-T Axes : 035 -28 121 degrees QTc Int : 452 ms Sinus tachycardia Possible Left atrial enlargement ST & T wave abnormality, consider anterolateral ischemia Abnormal ECG Confirmed by AL LUEVANO MD ([id number]), marketing editor SHERYL MART ([id number]) on 04/18/2019 8:02:01 AM Referred By: RONAK
--- NOTE | 2019-04-16 14:12 | RAD_ITS ---
STUDY: X-RAY CHEST REASON FOR EXAM: Female, 58 years old. CHEST PAIN TECHNIQUE: Single AP portable view of the chest. COMPARISON: 09/11/2018 FINDINGS: Lungs are mildly hypoinflated. There is questionable subtle right lower lobe infiltrate/early pneumonia. Lungs are otherwise clear. There is no demonstrated pleural abnormality. Sternal cerclage wires are present from a prior sternotomy. Heart size is borderline enlarged. Normal mediastinum and marie. Normal visualized pulmonary arteries. Normal visualized aortic arch and descending thoracic aorta. Normal visualized thoracic spine. Normal visualized ribs, clavicles, and shoulders. There is no demonstrated abnormality of the visualized soft tissue structures of the upper abdomen. RAD/Chest 1 View (Portable) IMPRESSION: Appearance of questionable/subtle right lower lobe early pneumonia Electronically Signed: Roberto Aguilar DO at 14:28 EST Tel , Service support ,
--- NOTE | 2019-04-16 14:15 | ED.VISSUMM ---
- ER Visit Summary Date of Service: 04/16/19 Chief Complaint: Chest pain History of Present Illness: The patient is a [address] Mcgrath, Dr. Menon, and Dr. Wright. She reports that she has chest pain that began yesterday. Initially was intermittent pain lasting minutes at a time. States that it is now been constant for the past 6 hours. Is 10 on 10 worsening a 10 currently. Is worsened by exertion or breathing. Is relieved by remaining still. She reports is been nauseated, diaphoretic, and short of breath. She reports she had a fever to 101 degrees. She denies any cough. Patient reports she has had lower back pain for the past week. It is a sharp pain is 10 on 10 severity. Rates the back of her right leg to the level of her knee. No problems with her bowels or bladder. No groin numbness. No recent trauma. No fall, MVA, or change in activity. No numbness or weakness. Physical Examination: Vitals: Stable. Afebrile. General: Well-nourished and well-developed. Head: Normocephalic atraumatic. Neck: Supple, no lymphadenopathy. No JVD. Nontender. Cardiovascular: Regular rate and rhythm. No murmurs. Respiratory: No respiratory distress. Clear to auscultation bilaterally. Abdominal: Soft, nontender, nondistended, normal bowel sounds. No guarding, rebound, or peritoneal signs. Back: Moderate diffuse tenderness palpation of the lumbar spine paraspinous muscular and lumbar region bilaterally. Negative straight leg raise bilaterally. 5 out of 5 dorsiflexion, plantarflexion, extension looses bilaterally. Normal sensation light touch throughout. Extremities: Nontender, no edema. Skin: Normal color, no rash. Neurologic: Alert and oriented ?3. Cranial nerves II through XII are intact. Normal strength and sensation. Psych: Normal affect. Test Results: EKG is sinus tach at [address] changes. She has T wave inversions with ST depression in leads I, aVL, V3 to V6. However, this is unchanged from last month. Troponin is negative. Chem-7 is marked for sodium 133, creatinine 1.49, glucose 427, calcium 10.2. CBC is marked for white count 15.0, 76 7 neutrophils, lymphocytes of 16. Chest x-ray shows questionable right lower lobe infiltrate. Because of this a CTA of the chest was obtained. There is no PE or dissection. She does have right lower lobe infiltrate on this. Emergency Department Course and Treatment: Patient's pneumonia severity index is 70 due to her elevated blood sugar and chronic renal insufficiency. Her curb 65 is negative. She was given doxycycline, aspirin p.o. She was given morphine IV. She is resting comfortably. Patient is supposed to take 80 units U5 100 insulin 3 times daily. She missed her dose 3 hours ago. She gave that to herself while she was here. Treatment Plan: Patient be discharged on doxycycline. She is in pain management she will not have pain medications added. She is instructed to push fluids. Follow-up Dr. Flores in 5 to 7 days for another exam. Return to the emergency department for any worsening symptoms. Disposition: To home in improved and stable condition. Impression: 1. Atypical chest pain. 2. Right lower lobe pneumonia. 3. Hyperglycemia. 4. Type 2 diabetes mellitus. This note was generated with [employer] dictation software. It may contain incorrect words, spelling, and punctuation that were not noted in review of the chart prior to signing ED Disposition - Plan for ED Patient: Instructions: PNEUMONIA (Adult) Prescriptions: Doxycycline 100 mg PO BID #14 capsule Referrals: Mala Mcgrath MD [Primary Care Provider] - 5-7 Days
[2019-04-16 14:26] LABS: Absolute Lymphocyte Count 2.32 X10^3/uL (0.83-4.51); Absolute Neutrophil Count 11.4 X10^3/uL (2.0-7.7); Basophil# 0.06 X10^3/uL; Basophil% 0.4 % (0-1); Eosinophil# 0.18 X10^3/uL; Eosinophils% 1.2 % (0-5); Hematocrit 39.2 % (37-47); Hemoglobin 12.6 g/dL (12.0-15.0); Lymphocyte # 2.32 X10^3/ul (4.0); Lymphocyte % 15.5 % (19-41); Mean Corp Hgb Conc 32.1 g/dL (32-36); Mean Corpuscular Hgb 28.2 pg (27.0-32.0); Mean Corpuscular Volume 87.7 fL (81-99); Mean Platelet Vol. 12.6 fl (6.2-12.0); Monocyte% 5.3 % (0-10); NRBC Flagged by Analyzer 0.1 % (0-5); Neutrophil # 11.41 X10^3/uL (2.7-7.7); Neutrophil % 76.2 % (47-70); Platelet Count 209 K/mm3 (150-450); RBC Distribution Width CV 16.5 % (11.6-14.6); RBC Distribution Width SD 52.2 fl (35.1-43.9); Red Blood Count 4.47 M/mm3 (4.2-5.4)
[2019-04-16 14:29] VITALS: BP 155/77; PULSE 95; RESP 18; O2SAT 98
[2019-04-16] MEDS: 0.9% Normal Saline 1,000 ML 150 ML IV (14:30)
[2019-04-16] MEDS: Aspirin 81 MG TAB.CHEW 324 MG PO (14:34)
[2019-04-16 14:44] LABS: Anion Gap 6 (5-15); BUN 17 mg/dL (7-18); BUN/Creat Ratio 11.4 RATIO (10-20); Calcium,Total 10.2 mg/dL (8.5-10.1); Chloride 99 mmol/L (98-107); Creatinine, Serum 1.49 mg/dL (0.55-1.02); EST Glomerular Filtration Rate 38 mL/min (>60); Est Glom Filt Rate - Afr Amer 46 mL/min (>60); Estimated Creatinine Clearance 39.05 ml/min; Glucose 427 mg/dL (74-106); Potassium 4.2 mmol/L (3.5-5.1); Sodium Level 133 mmol/L (136-145)
--- NOTE | 2019-04-16 14:52 | CT_ITS ---
STUDY: CTA CHEST REASON FOR EXAM: Female, 58 years old. COUGH, SOB, PE SUSPECTED RADIATION DOSAGE (If Supplied By Facility): CTDIvol = ( 13.58 ) mGy, DLP = ( 442.00 ) mGycm TECHNIQUE: The examination was performed with the intravenous administration of 100 CC ISOVUE 370. Post-processing of the angiographic images was performed, with multiplanar reformation and 3D reconstruction. Individualized dose optimization techniques were used for this CT. COMPARISON: Chest x-ray earlier FINDINGS: Normal enhancement of the main pulmonary artery and right and left pulmonary arteries. Normal enhancement of the bilateral peripheral pulmonary arteries. There is no demonstrated pulmonary embolism. Normal thoracic aorta and visualized great vessels. There is no demonstrated aortic dissection. Normal heart and pericardium. Normal mediastinum. Normal hilar regions. Normal visualized trachea and bronchi. The lungs are well expanded. As seen on plain film, patchy infiltrate in the right lung base compatible with early pneumonia. Lungs are otherwise clear. Normal pleura. Normal chest wall structures. There are degenerative changes of thoracic spine. Normal visualized upper abdomen. CT/CTA Chest W/WO Contrast IMPRESSION: Normal CTA chest examination, without a demonstrated pulmonary embolism or arterial dissection. Patchy right lower lobe infiltrate compatible with pneumonia. Electronically Signed: Roberto Aguilar DO at 15:47 EST Tel , Service support ,
[2019-04-16] MEDS: Morphine 4 MG/ML Syringe IV (15:10)
[2019-04-16 15:13] VITALS: PULSE 98; RESP 23; O2SAT 96; O2SAT 97
[2019-04-16 16:14] VITALS: BP 139/84; PULSE 94; RESP 19; O2SAT 96
[2019-04-16] MEDS: Doxycycline 100 MG CAPSULE PO (16:17)
== END 2019-04-16 16:18 | disposition home or self-care (01) ==
LOC: ED 14:13
PROVIDERS: Emergency Provider Emergency Medicine; PCP Internal Medicine
DX: R07.89 Other chest pain (principal); J18.9 Pneumonia, unspecified organism; E11.65 Type 2 diabetes mellitus with hyperglycemia; E11.22 Type 2 diabetes mellitus with diabetic chronic kidney disease; I12.9 Hypertensive chronic kidney disease with stage 1 through stage 4 chronic kidney disease, or unspecified chronic kidney disease; N18.9 Chronic kidney disease, unspecified; E11.43 Type 2 diabetes mellitus with diabetic autonomic (poly)neuropathy; K31.84 Gastroparesis; I25.10 Atherosclerotic heart disease of native coronary artery without angina pectoris; J44.9 Chronic obstructive pulmonary disease, unspecified; E78.00 Pure hypercholesterolemia, unspecified; K51.90 Ulcerative colitis, unspecified, without complications; Z95.1 Presence of aortocoronary bypass graft; Z79.4 Long term (current) use of insulin; Z79.82 Long term (current) use of aspirin; Z79.02 Long term (current) use of antithrombotics/antiplatelets; Z79.899 Other long term (current) drug therapy
CPT/HCPCS: 71045; 71275; 80048; 84484; 85025; 93005; 99283; J7030; Q9967; A4216

== ENCOUNTER → 2019-04-18 14:54 | Outpatient (CLI) | payer MEDICARE, MEDICAID, SELFPAY ==
[2018-07-18 11:23] VITALS: BMI 30.9
[2019-04-16 14:06] VITALS: BMI 33.6
[2019-04-18 15:57] LABS: Absolute Lymphocyte Count 2.17 X10^3/uL (0.83-4.51); Absolute Neutrophil Count 5.6 X10^3/uL (2.0-7.7); Basophil% 1.1 % (0-1); Eosinophil# 0.49 X10^3/uL; Eosinophils% 5.3 % (0-5); Hematocrit 37.6 % (37-47); Hemoglobin 12.1 g/dL (12.0-15.0); Lymphocyte # 2.17 X10^3/ul (4.0); Lymphocyte % 23.5 % (19-41); Mean Corp Hgb Conc 32.2 g/dL (32-36); Mean Corpuscular Hgb 28.3 pg (27.0-32.0); Mean Corpuscular Volume 88.1 fL (81-99); Mean Platelet Vol. 12.3 fl (6.2-12.0); Monocyte# 0.45 X10^3/uL; Monocyte% 4.9 % (0-10); NRBC Flagged by Analyzer 0.2 % (0-5); Neutrophil # 5.58 X10^3/uL (2.7-7.7); Neutrophil % 60.3 % (47-70); Platelet Count 237 K/mm3 (150-450); RBC Distribution Width CV 16.1 % (11.6-14.6); RBC Distribution Width SD 51.2 fl (35.1-43.9); Red Blood Count 4.27 M/mm3 (4.2-5.4); White Blood Count 9.2 K/mm3 (4.4-11.0)
[2019-04-18 16:12] LABS: Erythrocyte Sedimentation Rate 103 mm/hr (0-30)
[2019-04-18 16:43] LABS: ALB/GLOB Ratio 0.5 RATIO (0.9-2.4); AST(SGOT) 26 U/L (15-37); Alanine Aminotransfer ALT/SGPT 21 U/L (13-56); Albumin, Serum 2.7 g/dL (3.2-5.0); Alkaline Phosphatase 199 U/L (45-117); Anion Gap 8 (5-15); BUN 19 mg/dL (7-18); BUN/Creat Ratio 13.5 RATIO (10-20); Chloride 103 mmol/L (98-107); Creatinine, Serum 1.41 mg/dL (0.55-1.02); EST Glomerular Filtration Rate 40 mL/min (>60); Est Glom Filt Rate - Afr Amer 49 mL/min (>60); Globulin 5.3 g/dL (2.2-4.2); Glucose 295 mg/dL (74-106); Potassium 3.7 mmol/L (3.5-5.1); Rheumatoid Factor < 10.0 IU/mL (<15); Sodium Level 137 mmol/L (136-145)
[2019-04-20 15:45] LABS: ANTINUCLEAR ANTIBODIES DIRECT Negative (Negative)
[2019-04-21 11:28] LABS: CCP IgG Antibodies 9 units (0-19)
== END ==
PROVIDERS: PCP Internal Medicine; Referring Provider Internal Medicine; Visit Provider Internal Medicine
DX: E11.9 Type 2 diabetes mellitus without complications (principal); M19.90 Unspecified osteoarthritis, unspecified site; R53.81 Other malaise; R53.83 Other fatigue
CPT/HCPCS: 36415; 80053; 85025; 85652; 86038; 86140; 86200; 86225; 86235; 86431

== ENCOUNTER 2019-05-01 13:18 | Outpatient (RCR) | payer MEDICARE, MEDICAID, SELFPAY ==
[2018-07-18 11:23] VITALS: BMI 30.9
[2019-04-19 08:21] VITALS: BMI 31.1
== END 2019-05-01 23:59 | disposition home or self-care (01) ==
LOC: DC 13:18
PROVIDERS: Family Provider Internal Medicine; PCP Internal Medicine; Visit Provider Internal Medicine Gastroenterology
DX: Z71.3 Dietary counseling and surveillance (principal); E11.22 Type 2 diabetes mellitus with diabetic chronic kidney disease; N18.3 Chronic kidney disease, stage 3 (moderate); E11.43 Type 2 diabetes mellitus with diabetic autonomic (poly)neuropathy; K31.84 Gastroparesis
CPT/HCPCS: 97803

== ENCOUNTER 2019-05-19 14:00 | Emergency (ER) | payer MEDICARE, MEDICAID, SELFPAY ==
[2018-07-18 11:23] VITALS: BMI 30.9
[2019-05-11 14:15] VITALS: BMI 31.4
[2019-05-19 14:03] VITALS: BP 197/91; PULSE 90; RESP 18; TEMP 36.4; O2SAT 96; BMI 31.3
[2019-05-19 14:26] LABS: Bedside Glucose 463 mg/dL (70-110)
--- NOTE | 2019-05-19 14:47 | RAD_ITS ---
STUDY: X-RAY - LUMBAR SPINE REASON FOR EXAM: Female, 58 years old. Lower back pain radiating down lower legs. TECHNIQUE: 3 view(s) of the lumbar spine were obtained. COMPARISON: 06/30/2018. FINDINGS: Straightening of the lumbar spine curve. There is no substantial scoliosis. There is a normal alignment of the vertebrae. Normal vertebral bodies and endplates. Mild L5-S1 disc space height narrowing. Normal remaining lumbar disc space heights. Small sclerotic lesion in the right sacral alar wing is most likely bone island. This is unchanged. This was also present on 02/16/2017. Dense vascular calcifications along the abdominal aorta and the included portions of the lower thoracic aorta. RAD/Lumbar Spine 2 or 3 Views IMPRESSION: 1. No acute fracture or acute osseous abnormality of the lumbar spine. 2. L5-S1 degenerative disc space height narrowing is unchanged. 3. Small bone island in the right sacral alar wing is unchanged. 4. Dense vascular calcifications along the abdominal aorta and the lower thoracic aorta were present previously. Electronically Signed: Clarke Hammond MD at 15:48 EDT , Service support ,
[2019-05-19] MEDS: 0.9% Normal Saline 1,000 ML 1000 ML IV ×2 (15:04→15:59)
[2019-05-19] MEDS: Ondansetron 4 MG/2 ML Vial IV (15:05)
[2019-05-19] MEDS: HYDROmorphone 1 MG/ML Syringe IV (15:05)
[2019-05-19 15:07] LABS: Absolute Lymphocyte Count 2.01 X10^3/uL (0.83-4.51); Absolute Neutrophil Count 4.6 X10^3/uL (2.0-7.7); Basophil# 0.05 X10^3/uL; Basophil% 0.7 % (0-1); Eosinophil# 0.32 X10^3/uL; Eosinophils% 4.3 % (0-5); Hematocrit 37.9 % (37-47); Hemoglobin 12.1 g/dL (12.0-15.0); Lymphocyte # 2.01 X10^3/ul (4.0); Mean Corp Hgb Conc 31.9 g/dL (32-36); Mean Corpuscular Hgb 28.1 pg (27.0-32.0); Mean Corpuscular Volume 88.1 fL (81-99); Mean Platelet Vol. 12.3 fl (6.2-12.0); Monocyte# 0.42 X10^3/uL; Monocyte% 5.6 % (0-10); NRBC Flagged by Analyzer 0 % (0-5); Neutrophil # 4.59 X10^3/uL (2.7-7.7); Neutrophil % 61.6 % (47-70); Platelet Count 175 K/mm3 (150-450); RBC Distribution Width CV 15.9 % (11.6-14.6); RBC Distribution Width SD 50.9 fl (35.1-43.9); White Blood Count 7.5 K/mm3 (4.4-11.0)
[2019-05-19 15:22] LABS: Anion Gap 7 (5-15); BUN 22 mg/dL (7-18); BUN/Creat Ratio 15.8 RATIO (10-20); Calcium,Total 8.9 mg/dL (8.5-10.1); Chloride 104 mmol/L (98-107); Creatinine, Serum 1.39 mg/dL (0.55-1.02); EST Glomerular Filtration Rate 41 mL/min (>60); Est Glom Filt Rate - Afr Amer 50 mL/min (>60); Estimated Creatinine Clearance 41.85 ml/min; Glucose 383 mg/dL (74-106); Potassium 4.2 mmol/L (3.5-5.1); Sodium Level 136 mmol/L (136-145)
--- NOTE | 2019-05-19 15:58 | ED.VISSUMM ---
- ER Visit Summary Date of Service: 05/19/19 Chief Complaint: Back pain History of Present Illness: The patient is a 58 F with low back pain. She has chronic low back pain and follows with pain management. She reports increasing pain over the past week. Nothing seemed to bring it on. She denies any injury. The pain is in her lower back and radiates down her right leg. She does have some pain radiating down her left lower leg at times. Denies any new numbness. Denies saddle anesthesias. She has history of ileostomy, and her rectum is closed. She has not had any urinary issues. No history of cancer or bleeding issues. No trauma. She had an MRI almost a year ago that showed L4-L5 moderate right foraminal stenosis. Patient is also complaining of hyperglycemia. She has a history of brittle diabetes. She has been taking her insulin as prescribed. She had a blood sugar at noon around 390. Physical Examination: Afebrile and vital signs unremarkable. Alert and oriented. No acute distress. Heart regular. Lungs clear. Abdomen soft and nontender. Back shows lower lumbar tenderness in the L4-L5 and sacral area. Skin is normal. Good strength and sensation. Test Results: X-rays show no acute process. There is some L5-S1 disc space narrowing which is unchanged. No acute issues. Emergency Department Course and Treatment: Initial glucose was over 400 per nursing. IV was placed and she was treated with IV fluids. CBC normal. Glucose was 383. Anion gap 7 and CO2 25. Creatinine 1.39. Ketones pending, but I do not suspect she has DKA. X-rays of her lumbar spine showed nothing acute. I do not believe she needs MRI. There is nothing to suggest abscess or hematoma. Nothing to suggest malignancy, fracture. No signs or symptoms of cauda equina. This is a chronic pain. She is responding well to pain medicine. She is able to stand and walk unassisted after treatment. Patient received IV fluids. She was reluctant to have insulin because often she will become hypoglycemic. Her glucose was 383 and I do not appreciate any complications. She will receive additional fluids and then resume her outpatient insulin regimen. Patient will be discharged home. Treatment Plan: As above Disposition: Discharge Impression: Hyperglycemia Chronic back pain This note was generated with [employer] dictation software. It may contain incorrect words, spelling, and punctuation that were not noted in review of the chart prior to signing ED Disposition - Plan for ED Patient: Instructions: BACK PAIN (Acute or Chronic) Referrals: Clark Wright MD [STAFF PHYSICIAN] -
[2019-05-19] MEDS: HYDROmorphone 0.5 MG/0.5 ML SYRINGE IV (15:59)
--- NOTE | 2019-05-19 16:03 | ED.DEP ---
ED Disposition - Plan for ED Patient: Instructions: BACK PAIN (Acute or Chronic) Referrals: Clark Wright MD [STAFF PHYSICIAN] -
[2019-05-19 16:53] VITALS: BP 181/74; PULSE 70; RESP 18; O2SAT 97
== END 2019-05-19 16:55 | disposition home or self-care (01) ==
LOC: ED 14:58
PROVIDERS: Emergency Provider Emergency Medicine; PCP Internal Medicine
DX: E11.65 Type 2 diabetes mellitus with hyperglycemia (principal); G89.29 Other chronic pain; I50.9 Heart failure, unspecified; I12.9 Hypertensive chronic kidney disease with stage 1 through stage 4 chronic kidney disease, or unspecified chronic kidney disease; I25.10 Atherosclerotic heart disease of native coronary artery without angina pectoris; J44.9 Chronic obstructive pulmonary disease, unspecified; E78.00 Pure hypercholesterolemia, unspecified; Z79.4 Long term (current) use of insulin
CPT/HCPCS: 72100; 80048; 82009; 82962; 85025; 96361; 96374; 96375; 96376; 99284; J7030; J2405

== ENCOUNTER → 2019-06-14 10:21 | Outpatient (CLI) | payer MEDICARE, MEDICAID, SELFPAY ==
[2018-07-18 11:23] VITALS: BMI 30.9
[2019-06-14 08:53] VITALS: BMI 31.3
[2019-06-14 11:00] LABS: Absolute Lymphocyte Count 2.39 X10^3/uL (0.83-4.51); Absolute Neutrophil Count 6.7 X10^3/uL (2.0-7.7); Basophil% 0.9 % (0-1); Eosinophil# 1.35 X10^3/uL; Hematocrit 40.1 % (37-47); Hemoglobin 12.8 g/dL (12.0-15.0); Lymphocyte # 2.39 X10^3/ul (4.0); Lymphocyte % 21.2 % (19-41); Mean Corp Hgb Conc 31.9 g/dL (32-36); Mean Corpuscular Hgb 28.3 pg (27.0-32.0); Mean Corpuscular Volume 88.7 fL (81-99); Mean Platelet Vol. 13.5 fl (6.2-12.0); Monocyte# 0.63 X10^3/uL; Monocyte% 5.6 % (0-10); NRBC Flagged by Analyzer 0 % (0-5); Neutrophil # 6.69 X10^3/uL (2.7-7.7); Neutrophil % 59.2 % (47-70); Platelet Count 185 K/mm3 (150-450); RBC Distribution Width CV 15.9 % (11.6-14.6); RBC Distribution Width SD 50.6 fl (35.1-43.9); Red Blood Count 4.52 M/mm3 (4.2-5.4); White Blood Count 11.3 K/mm3 (4.4-11.0)
[2019-06-14 11:09] LABS: ALB/GLOB Ratio 0.8 RATIO (0.9-2.4); AST(SGOT) 40 U/L (15-37); Alanine Aminotransfer ALT/SGPT 29 U/L (13-56); Albumin, Serum 3.2 g/dL (3.2-5.0); Alkaline Phosphatase 139 U/L (45-117); Anion Gap 8 (5-15); BUN 23 mg/dL (7-18); BUN/Creat Ratio 13.8 RATIO (10-20); Calcium,Total 10.1 mg/dL (8.5-10.1); Chloride 104 mmol/L (98-107); Creatinine, Serum 1.67 mg/dL (0.55-1.02); EST Glomerular Filtration Rate 33 mL/min (>60); Est Glom Filt Rate - Afr Amer 40 mL/min (>60); Glucose 355 mg/dL (74-106); Potassium 4.4 mmol/L (3.5-5.1); Protein, Total 7.2 g/dL (6.4-8.2); Sodium Level 139 mmol/L (136-145)
== END ==
PROVIDERS: PCP Internal Medicine; Referring Provider Internal Medicine; Visit Provider Internal Medicine
DX: E11.9 Type 2 diabetes mellitus without complications (principal); R53.81 Other malaise; R53.83 Other fatigue
CPT/HCPCS: 80053; 85025

== ENCOUNTER → 2019-06-16 11:24 | Outpatient (CLI) | payer MEDICARE, MEDICAID, SELFPAY ==
[2018-07-18 11:23] VITALS: BMI 30.9
[2019-06-14 08:53] VITALS: BMI 31.3
[2019-06-16 11:29] LABS: Bacteria 0 SEEN /hpf (None Seen); Mucous, Urine 0 SEEN /hpf (<or=2+); Red Blood Cells-Urine 0 SEEN /hpf (0-5); White Blood Cells 0 SEEN /hpf (0-5)
[2019-06-16 12:30] LABS: Color, Urine Yellow (Yellow); Glucose, Dipstick 100 mg/dl (Normal); Ketone-Dipstick Negative (Negative); Leukocyte Esterase-Dipstick Negative /ul (Negative); Nitrite-Dipstick Negative (Negative); Occult Blood-Urine Negative /ul (Negative); Protein-Dipstick 30 mg/dl (Negative); Specific Gravity, Urine 1.025 (1.002-1.030); Urine Bilirubin Dipstick Negative (Negative); Urine Clarity Sl. Cloudy (Clear); Urine Urobilinogen Normal (Normal)
[2019-06-16 12:48] LABS: Squamous Epithelial Cells - UA 0-5 SEEN /hpf (5-10)
== END ==
PROVIDERS: PCP Internal Medicine; Referring Provider Internal Medicine; Visit Provider Internal Medicine
DX: R53.81 Other malaise (principal); R53.83 Other fatigue
CPT/HCPCS: 81001

== ENCOUNTER 2019-07-28 09:59 | Emergency (ER) | payer MEDICARE, MEDICAID, SELFPAY ==
[2019-06-22 12:51] VITALS: BMI 30.9
[2019-07-12 10:49] VITALS: BMI 30.2
[2019-07-28 10:01] VITALS: BP 154/74; PULSE 79; RESP 17; TEMP 36.7; O2SAT 95; BMI 30.8
--- NOTE | 2019-07-28 10:08 | RAD_ITS ---
STUDY: X-RAY CHEST REASON FOR EXAM: Female, 59 years old. CHEST PAIN, SHORT OF BREATH TECHNIQUE: Single AP portable view of the chest. COMPARISON: 04/16/2019 FINDINGS: EKG leads overlie the chest The lungs are clear and expanded. There is no demonstrated pleural abnormality. Sternal cerclage wires and vascular clips are present from a prior sternotomy and coronary artery bypass graft procedure (CABG). Normal mediastinum and marie. Normal visualized pulmonary arteries. Normal visualized aortic arch and descending thoracic aorta. Normal visualized thoracic spine. Normal visualized ribs, clavicles, and shoulders. There is no demonstrated abnormality of the visualized soft tissue structures of the upper abdomen. RAD/Chest 1 View (Portable) IMPRESSION: No acute pulmonary process Electronically Signed: Leoncio Lopez MD at 10:59 EDT , Service support ,
--- NOTE | 2019-07-28 10:08 | EKG12_ITS ---
Test Reason : Blood Pressure : / mmHG Vent. Rate : 078 BPM Atrial Rate : 078 BPM P-R Int : 162 ms QRS Dur : 090 ms QT Int : 380 ms P-R-T Axes : 021 -23 122 degrees QTc Int : 433 ms Normal sinus rhythm Left ventricular hypertrophy with repolarization abnormality Abnormal ECG Confirmed by CHLOÉ DOMINGUEZ, AL ([id number]), visual effects editor MALIK HULL ([id number]) on 08/01/2019 3:24:57 PM Referred By: LALI Confirmed By:AL LUEVANO MD
--- NOTE | 2019-07-28 10:09 | ED.DCSUM_ITS ---
History of Present Illness Chief Complaint: Chest Pain Informant: Patient Onset: Days Context: Gradual Onset Timing: Intermittent Current Severity: Moderate Maximum Severity: Moderate Narrative: The patient is a 59-year-old female with medical history significant for COPD not on home oxygen, coronary vascular disease status post four-vessel bypass in 2012 with 12 stents that presents to the emergency department with chest pain and dyspnea. Patient states that for the past few days, she is had some pain in her right upper chest. She states it is worse when she breathes or coughs. She states today, the pain was more generalized across her chest and she felt more short of breath. She states that she was taking her pulse ox at home and it was anywhere from the low 80s to 99. She denies fever. She denies chills or sweats. She denies any productive sputum. She has no history of pulmonary embolus. Prior similar symptoms: Yes Recent Illness/Hospitalization: No Past Medical History - Allergies and Home Meds Allergies/Adverse Reactions: Allergies ciprofloxacin Allergy (Intermediate, Verified 07/28/19 10:01) Swelling cinnamon [Cinnamon] Allergy (Verified 07/28/19 10:01) Anaphylaxis Influenza Virus Vaccines Allergy (Verified 07/28/19 10:01) Shortness of breath liraglutide [From Victoza] Allergy (Verified 07/28/19 10:01) Anaphylaxis metronidazole [From Flagyl] Allergy (Verified 07/28/19 10:01) Hives Metronidazole HCl [From Flagyl] Allergy (Verified 07/28/19 10:01) Hives Penicillins Allergy (Verified 07/28/19 10:01) Hives Sulfa (Sulfonamide Antibiotics) Allergy (Verified 07/28/19 10:01) Hives codeine Adverse Reaction (Verified 07/28/19 10:01) Stops Ileostomy dicyclomine HCl [From Bentyl] Adverse Reaction (Verified 07/28/19 10:01) Nausea metformin HCl [From Glucophage] Adverse Reaction (Verified 07/28/19 10:01) Nausea ranolazine Adverse Reaction (Verified 07/28/19 10:01) Nausea/Vom/Diarrhea Nalzixr-Fov-Ypq Reductase Inhibitor Adverse Reaction (Verified 07/28/19 10:01) Nausea/joints ache Primary Care Physician: Mala Mcgrath MD [Primary Care Provider] - Prior records reviewed: Yes Past Medical History: - - Coronary vascular disease, COPD, hypertension, hyperlipidemia, diabetes Surgical History: angioplasty, coronary bypass surgery, hysterectomy, - Smoking Status: Former smoker - Family History Maternal Family History: Family History (Last Reviewed 07/12/19 @ 10:47 by Jory Ruiz) Mother CVA (cerebral vascular accident) Diabetes Brother Heart disease Myocardial infarction Pancreatitis Father Cancer Lymphoma Grandmother Myocardial infarction Sister COPD (chronic obstructive pulmonary disease) Family History: Reports: Heart Disease, - - No autoimmune disease that she is aware of Paternal Family History: Family History (Last Reviewed 07/12/19 @ 10:47 by Jory Ruiz) Mother CVA (cerebral vascular accident) Diabetes Brother Heart disease Myocardial infarction Pancreatitis Father Cancer Lymphoma Grandmother Myocardial infarction Sister COPD (chronic obstructive pulmonary disease) Family History: Reports: Cancer - Father has H/o lymphoma, - - No autoimmune disease that she is aware of Review of Systems General: Denies: Chills, Fever, Sweats Eyes: Denies: Visual changes - bilaterally, Diplopia ENT: Denies: Rhinorrhea, Sore throat Cardiovascular: Reports: Chest pain Respiratory: Reports: Dyspnea, Cough Gastrointestinal: Denies: Abdominal pain, Nausea, Vomiting, Diarrhea, Melena, Hematochezia Genitourinary: Denies: Dysuria, Hematuria, Frequency Musculoskeletal: Denies: Back pain, Extremity Pain Skin: Denies: Rash, Wounds Neurological: Denies: Headache, Weakness, Numbness Physical Exam Vital Signs/Narrative: Vital Signs Temp Pulse Resp BP Pulse Ox 07/28/19 10:01 98.0 F 79 17 154/74 H 95 Inital Vital Signs reviewed: Yes General: Well nourished, Well developed, No Acute Distress Head: Normocephalic, Atraumatic Eyes: Perrl, EOMI ENT: Moist mucous membranes, No rhinorrhea Neck: Supple, Nontender Cardiovascular: Regular rate, Regular rhythm, No murmurs Respiratory: No distress, CTA bilaterally, Chest nontender Abdomen: Soft, Nontender, Nondistended, Normal bowel sounds Back: Nontender, Normal Inspection Extremities: Nontender, No edema Skin: Normal color, No rash Neurological: Alert, Oriented x3, Cranial nerves II-XII grossly intact, Normal Strength, Normal Sensation Psychological: Normal affect, Normal Mood Diagnostic/Tx/Re-eval Clinical Impression(s) from Imaging Studies Chest X-Ray 07/28/19 10:08 IMPRESSION: No acute pulmonary process Electronically Signed: Leoncio Lopez MD at 10:59 EDT , Service support , Chest CTA 07/28/19 10:39 IMPRESSION: No demonstrated PE, or thoracic aortic aneurysm or dissection Remote CABG Chronic interstitial changes in both lung corral without a superimposed acute pulmonary process. Degenerative bony changes Electronically Signed: Leoncio Lopez MD at 11:31 EDT , Service support , Abnormal Lab Results 07/28/19 07/28/19 07/28/19 10:10 10:10 10:10 WBC 9.4 RBC 4.70 Hgb 13.1 Hct 42.5 MCV 90.4 MCH 27.9 MCHC 30.8 L RDW Std Deviation 48.8 H RDW Coeff of Jan 14.7 H Plt Count 213 MPV 12.5 H Immature Gran % (Auto) 0.900 Neut % (Auto) 59.0 Lymph % (Auto) 25.2 Charlton % (Auto) 6.6 Eos % (Auto) 7.6 H Baso % (Auto) 0.7 Absolute Neuts (auto) 5.5 Absolute Lymphs (auto) 2.36 Nucleated RBC % 0 D-Dimer Quant (PE/DVT) 0.66 H* Sodium 141 Potassium 4.0 Chloride 109 H Carbon Dioxide 27.0 Anion Gap 5 BUN 21 H Creatinine 1.24 H Estim Creat Clear Calc 46.33 Est GFR (MDRD) Af Amer 57 L Est GFR (MDRD) Non-Af 47 L BUN/Creatinine Ratio 16.9 Glucose 258 H Calcium 9.5 Troponin I < 0.015 B-Natriuretic Peptide 07/28/19 10:10 WBC RBC Hgb Hct MCV MCH MCHC RDW Std Deviation RDW Coeff of Jan Plt Count MPV Immature Gran % (Auto) Neut % (Auto) Lymph % (Auto) Charlton % (Auto) Eos % (Auto) Baso % (Auto) Absolute Neuts (auto) Absolute Lymphs (auto) Nucleated RBC % D-Dimer Quant (PE/DVT) Sodium Potassium Chloride Carbon Dioxide Anion Gap BUN Creatinine Estim Creat Clear Calc Est GFR (MDRD) Af Amer Est GFR (MDRD) Non-Af BUN/Creatinine Ratio Glucose Calcium Troponin I B-Natriuretic Peptide 108.8 H - Rhythm Strip Rhythm Strip: Sinus Rhythm Rate: 80 Ectopy: None - Medical Decision Making The patient presents with chest pain with a pleuritic component. EKG was obtained. It demonstrated sinus rhythm with anterior lateral ST depression, unchanged from prior. D-dimer was obtained. This was mildly elevated so the patient underwent CTA of the chest. Screening labs including cardiac enzymes were unremarkable. Chest x-ray shows no evidence of acute volume overload, pneumothorax, or other dangerous process. CTA shows no evidence of pulmonary embolus, pneumonia, or other dangerous process. The patient has had pain for 3 days that is pleuritic in nature, along with an unchanged EKG and negative cardiac enzymes, I do feel that this is more likely pleurisy especially given her history of COPD. The patient is comfortable with this plan of care. I do feel that she is safe for outpatient follow-up. Impression 1. Pleurisy 2. Noncardiac chest pain ED Disposition - Plan for ED Patient: Instructions: ED Chest Pain Pleurisy Prescriptions: Prednisone [Deltasone] 40 mg PO DAILY #10 tab Prescription Printed Referrals: Mala Mcgrath MD [Primary Care Provider] -
[2019-07-28] MEDS: Morphine 4 MG/ML Syringe IV (10:20)
[2019-07-28] MEDS: Aspirin 81 MG TAB.CHEW 324 MG PO (10:20)
[2019-07-28 10:21] LABS: Absolute Lymphocyte Count 2.36 X10^3/uL (0.83-4.51); Absolute Neutrophil Count 5.5 X10^3/uL (2.0-7.7); Basophil# 0.07 X10^3/uL; Basophil% 0.7 % (0-1); Eosinophil# 0.71 X10^3/uL; Eosinophils% 7.6 % (0-5); Hematocrit 42.5 % (37-47); Hemoglobin 13.1 g/dL (12.0-15.0); Lymphocyte # 2.36 X10^3/ul (4.0); Lymphocyte % 25.2 % (19-41); Mean Corp Hgb Conc 30.8 g/dL (32-36); Mean Corpuscular Hgb 27.9 pg (27.0-32.0); Mean Corpuscular Volume 90.4 fL (81-99); Mean Platelet Vol. 12.5 fl (6.2-12.0); Monocyte# 0.62 X10^3/uL; Monocyte% 6.6 % (0-10); NRBC Flagged by Analyzer 0 % (0-5); Neutrophil # 5.53 X10^3/uL (2.7-7.7); Platelet Count 213 K/mm3 (150-450); RBC Distribution Width CV 14.7 % (11.6-14.6); RBC Distribution Width SD 48.8 fl (35.1-43.9); White Blood Count 9.4 K/mm3 (4.4-11.0)
[2019-07-28 10:36] VITALS: O2SAT 94
[2019-07-28 10:36] LABS: Anion Gap 5 (5-15); BUN 21 mg/dL (7-18); BUN/Creat Ratio 16.9 RATIO (10-20); Calcium,Total 9.5 mg/dL (8.5-10.1); Chloride 109 mmol/L (98-107); Creatinine, Serum 1.24 mg/dL (0.55-1.02); EST Glomerular Filtration Rate 47 mL/min (>60); Est Glom Filt Rate - Afr Amer 57 mL/min (>60); Estimated Creatinine Clearance 46.33 ml/min; Glucose 258 mg/dL (74-106); Sodium Level 141 mmol/L (136-145)
[2019-07-28 10:39] LABS: D-Dimer Quantitative (DVT/PE) 0.66 FEU/ug/m (0.27-0.49)
--- NOTE | 2019-07-28 10:39 | CT_ITS ---
STUDY: CTA CHEST REASON FOR EXAM: Female, 59 years old. SOB, chest pain. Hx CHF, CAD, hypertension, COPD, diabetes. RADIATION DOSAGE (If Supplied By Facility): CTDIvol = ( 11.42 ) mGy, DLP = ( 491.20 ) mGycm TECHNIQUE: The examination was performed with the intravenous administration of 100mL Isovue 370. Post-processing of the angiographic images was performed, with multiplanar reformation and 3D reconstruction. Individualized dose optimization techniques were used for this CT. COMPARISON: 04/16/2019 FINDINGS: Normal enhancement of the main pulmonary artery and right and left pulmonary arteries. Normal enhancement of the bilateral peripheral pulmonary arteries. There is no demonstrated pulmonary embolism. Normal thoracic aorta and visualized great vessels. There is no demonstrated aortic dissection. Sternal cerclage wires and vascular clips are present from a prior sternotomy and coronary artery bypass graft procedure (CABG). Normal mediastinum. Normal hilar regions. There is peribronchial thickening. The lungs are well expanded. Chronic interstitial changes in both lung corral without a superimposed acute pulmonary process. Specifically, there are no peripheral infiltrates or suspicious groundglass opacifications. Normal pleura. Normal chest wall structures. There are degenerative changes of thoracic spine. Limited cuts through the upper abdomen show hepatomegaly with fatty infiltration of the liver. CT/CTA Chest W/WO Contrast IMPRESSION: No demonstrated PE, or thoracic aortic aneurysm or dissection Remote CABG Chronic interstitial changes in both lung corral without a superimposed acute pulmonary process. Degenerative bony changes Electronically Signed: Leoncio Lopez MD at 11:31 EDT , Service support ,
[2019-07-28 10:40] LABS: BNP,B-Type NATRIURETIC PEPTIDE 108.8 pg/mL (0-100)
[2019-07-28 10:46] VITALS: BP 168/66; PULSE 76
[2019-07-28] MEDS: Nitroglycerin SL (ED/IMG/CATH) 0.4 MG TABLET SUBLINGUAL (10:46)
[2019-07-28 11:13] VITALS: BP 171/65; PULSE 70; RESP 20; O2SAT 98
[2019-07-28 11:42] VITALS: BP 168/68; PULSE 73; RESP 18; O2SAT 97
== END 2019-07-28 11:56 | disposition home or self-care (01) ==
LOC: ED 11:27
PROVIDERS: Emergency Provider Emergency Medicine; PCP Internal Medicine
DX: R07.89 Other chest pain (principal); E11.9 Type 2 diabetes mellitus without complications; J44.9 Chronic obstructive pulmonary disease, unspecified; E78.5 Hyperlipidemia, unspecified; I25.10 Atherosclerotic heart disease of native coronary artery without angina pectoris; I11.0 Hypertensive heart disease with heart failure; I50.9 Heart failure, unspecified; Z87.891 Personal history of nicotine dependence; Z95.1 Presence of aortocoronary bypass graft; Z79.4 Long term (current) use of insulin; Z79.82 Long term (current) use of aspirin
CPT/HCPCS: 71045; 71275; 80048; 83880; 84484; 85025; 85379; 93005; 96374; 99284; Q9967; A4216

== ENCOUNTER → 2019-08-02 10:06 | Outpatient (CLI) | payer MEDICARE, MEDICAID, SELFPAY ==
[2019-06-22 12:51] VITALS: BMI 30.9
[2019-07-28 10:01] VITALS: BMI 30.8
[2019-08-02 08:39] VITALS: BMI 30.8
== END ==
PROVIDERS: PCP Internal Medicine; Referring Provider Nurse Practitioner Acute Care; Visit Provider Nurse Practitioner Acute Care
DX: Z11.59 Encounter for screening for other viral diseases (principal)
CPT/HCPCS: 87635; G2023; U0004

== ENCOUNTER → 2019-08-16 10:28 | Outpatient (CLI) | payer MEDICARE, MEDICAID, SELFPAY ==
[2019-06-22 12:51] VITALS: BMI 30.9
[2019-08-08 14:06] VITALS: BMI 30.8
[2019-08-16 11:52] LABS: Amphetamine Urine VISTA NEGATIVE (<1000 ng/mL); Barbiturate Urine VISTA NEGATIVE (< 200 ng/mL); Benzodiazepine Urine VISTA NEGATIVE (< 200 ng/mL); Cocaine Urine VISTA NEGATIVE (< 300 ng/mL); Ecstacy Urine VISTA POSITIVE (< 500 ng/mL); Methadone Urine VISTA NEGATIVE (< 300 ng/mL); PCP Urine VISTA NEGATIVE (< 25 ng/mL); THC Urine VISTA NEGATIVE (< 50 ng/mL); Vista UDS pH Range 6
== END ==
PROVIDERS: PCP Internal Medicine; Referring Provider Anesthesiology Pain Medicine; Visit Provider Anesthesiology Pain Medicine
DX: F11.20 Opioid dependence, uncomplicated (principal)
CPT/HCPCS: 80307

== ENCOUNTER → 2019-09-01 16:45 | Outpatient (CLI) | payer MEDICARE, MEDICAID, SELFPAY ==
[2019-06-22 12:51] VITALS: BMI 30.9
[2019-08-08 14:06] VITALS: BMI 30.8
--- NOTE | 2019-09-01 17:30 | MRI_ITS ---
STUDY: MRI BRAIN WITH AND WITHOUT CONTRAST REASON FOR EXAM: Female, 59 years old. Dizziness with nausea, vomiting x 2 -3 months. Previous vestibular nerve surgery in the for [facility] TECHNIQUE: Standardized multiplanar fat and water weighted pulse sequences were obtained. 17ml Dotarem via IV was administered for the contrast portion of the examination. COMPARISON: March 17, 2017, April 02, 2015 FINDINGS: There is no acute infarct. There are no focal parenchymal findings. There is right transverse sigmoid mastoidectomy and appropriate postsurgical change in the right mastoid and lateral cerebellum. 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 Cerebellar pontine angle is clear. Temporal bone related structures are normal. There is bilateral proptosis without intraorbital masses. Appearance is stable since 2015. MRI/Brain W/WO Contrast IMPRESSION: 1. No acute findings or change since 2015. 2. Right mastoid related postsurgical change. 3. Bilateral proptosis with normal orbital contents. Ophthalmology referral is advised. Electronically Signed: Jhoan Prado, at 18:44 EDT Tel , Service support ,
== END ==
PROVIDERS: PCP Internal Medicine; Referring Provider Otolaryngology; Visit Provider Otolaryngology
DX: R42 Dizziness and giddiness (principal)
CPT/HCPCS: 70553; A9575

== ENCOUNTER → 2019-10-10 10:47 | Outpatient (CLI) | payer MEDICARE, MEDICAID, SELFPAY ==
[2019-06-22 12:51] VITALS: BMI 30.9
[2019-09-12 15:02] VITALS: BMI 30.8
[2019-10-10 12:13] LABS: ALB/GLOB Ratio 0.8 RATIO (0.9-2.4); AST(SGOT) 29 U/L (15-37); Alanine Aminotransfer ALT/SGPT 29 U/L (13-56); Albumin, Serum 3.3 g/dL (3.2-5.0); Alkaline Phosphatase 180 U/L (45-117); Anion Gap 7 (5-15); BUN 22 mg/dL (7-18); BUN/Creat Ratio 16.1 RATIO (10-20); Calcium,Total 9.5 mg/dL (8.5-10.1); Chloride 106 mmol/L (98-107); Creatinine, Serum 1.37 mg/dL (0.55-1.02); EST Glomerular Filtration Rate 42 mL/min (>60); Est Glom Filt Rate - Afr Amer 50 mL/min (>60); Glucose 225 mg/dL (74-106); Potassium 4.2 mmol/L (3.5-5.1); Protein, Total 7.3 g/dL (6.4-8.2); Sodium Level 139 mmol/L (136-145)
== END ==
PROVIDERS: PCP Internal Medicine; Referring Provider Internal Medicine; Visit Provider Internal Medicine
DX: R10.9 Unspecified abdominal pain (principal)
CPT/HCPCS: 36415; 80053

== ENCOUNTER 2019-10-10 11:14 | Inpatient (IN) | payer MEDICARE, MEDICAID, SELFPAY ==
[2019-06-22 12:51] VITALS: BMI 30.9
[2019-09-12 15:02] VITALS: BMI 30.8
[2019-10-10] VITALS (8 sets, daily range): BP systolic 148–179; BP diastolic 56–86; PULSE 62–75; RESP 13–18; TEMP 36.3–37; O2SAT 96–98; BMI 29.7; BMI 30.7
--- NOTE | 2019-10-10 11:42 | CT_ITS ---
STUDY: CT ABDOMEN AND PELVIS WITH CONTRAST REASON FOR EXAM: Female, 59 years old. ABD PAIN/CRAMPING X 3 WEEKS/?SBO, ILEOSTOMY RADIATION DOSAGE (If Supplied By Facility): CTDIvol = ( 13.69 ) mGy, DLP = ( 929.42 ) mGycm TECHNIQUE: Transaxial images were obtained from the dome of the diaphragm to the symphysis pubis with oral contrast. Oral and amp;amp; IV Gastrografin and amp;amp; 100mL Isovue-300 was administered. Sagittal and coronal images were reconstructed. Individualized dose optimization techniques were used for this CT. COMPARISON: Comparison is made with prior examination dated 07/15/2018. FINDINGS: The visualized lung bases are unremarkable. Coronary artery calcification. There is decreased attenuation of the liver consistent with steatosis. Mild hepatomegaly. There is a faint 9.4 mm hypodensity in the posterior medial aspect of the right lobe of the liver. This was not seen on prior examination. There is a 5.4 cm x 2.3 cm x 4.6 cm inhomogeneous nodular density in the inferior anterior aspect of the right lobe of the liver. This was not present on prior study. A neoplastic process should be ruled out. Status post cholecystectomy. Normal spleen. Normal pancreas. Normal bilateral adrenal glands. There is a 1.6 cm cystic nodule in the inferior aspect of the right kidney. This has grown as compared to prior study. Increased markings are seen in the surrounding fat. This may represent a complex cyst. Follow-up is recommended. Normal left kidney. Normal visualized stomach. Annual ileostomy is seen in the left lower quadrant. There is evidence of fat herniation at the ostomy site. The abdominal wall defect measures 6.4 cm. The patient is status post total colectomy. There is diffuse atherosclerotic calcification of the abdominal aorta, without a demonstrated aneurysm. Normal inferior vena cava. Normal retroperitoneum. Normal urinary bladder. There is absence of the uterus consistent with a prior hysterectomy. Normal abdominal wall. There are diffuse degenerative changes of the visualized lumbar spine. CT/Abdomen/Pelvis WITH Contrast IMPRESSION: Prominent 5.4 cm x 2.3 cm x 4.6 cm inhomogeneous density in the inferior anterior aspect of the right lobe of the liver. This was not present on prior examination. A metastatic deposit should be ruled out. As also evidence of a 9.4 mm hypodensity in the posterior medial aspect of the right lobe of the liver as seen on axial image #19. Status post total colectomy. Electronically Signed: Eric Spencer, at 13:52 EDT , Service support ,
[2019-10-10] MEDS: 0.9% Normal Saline 1,000 ML 1000 ML IV (11:50)
[2019-10-10] MEDS: Morphine 4 MG/ML Syringe IV ×2 (11:50→13:25)
[2019-10-10] MEDS: Ondansetron 4 MG/2 ML Vial IV (11:50)
[2019-10-10 11:54] LABS: Absolute Lymphocyte Count 2.27 X10^3/uL (0.83-4.51); Absolute Neutrophil Count 5.8 X10^3/uL (2.0-7.7); Basophil# 0.06 X10^3/uL; Basophil% 0.7 % (0-1); Eosinophils% 4.6 % (0-5); Hemoglobin 13.3 g/dL (12.0-15.0); Lymphocyte # 2.27 X10^3/ul (4.0); Lymphocyte % 25.9 % (19-41); Mean Corp Hgb Conc 32.4 g/dL (32-36); Mean Corpuscular Hgb 29.6 pg (27.0-32.0); Mean Corpuscular Volume 91.1 fL (81-99); Mean Platelet Vol. 12.3 fl (6.2-12.0); Monocyte# 0.21 X10^3/uL; Monocyte% 2.4 % (0-10); NRBC Flagged by Analyzer 0 % (0-5); Neutrophil # 5.76 X10^3/uL (2.7-7.7); Neutrophil % 65.7 % (47-70); Platelet Count 200 K/mm3 (150-450); RBC Distribution Width CV 18.9 % (11.6-14.6); RBC Distribution Width SD 59.5 fl (35.1-43.9); White Blood Count 8.8 K/mm3 (4.4-11.0)
[2019-10-10 12:04] LABS: ALB/GLOB Ratio 0.8 RATIO (0.9-2.4); AST(SGOT) 32 U/L (15-37); Alanine Aminotransfer ALT/SGPT 31 U/L (13-56); Albumin, Serum 3.4 g/dL (3.2-5.0); Alkaline Phosphatase 184 U/L (45-117); Anion Gap 8 (5-15); BUN 23 mg/dL (7-18); BUN/Creat Ratio 15.9 RATIO (10-20); Calcium,Total 9.6 mg/dL (8.5-10.1); Chloride 105 mmol/L (98-107); Creatinine, Serum 1.45 mg/dL (0.55-1.02); EST Glomerular Filtration Rate 39 mL/min (>60); Est Glom Filt Rate - Afr Amer 47 mL/min (>60); Estimated Creatinine Clearance 39.62 ml/min; Globulin 4.3 g/dL (2.2-4.2); Glucose 217 mg/dL (74-106); Lipase 209 U/L (73-393); Potassium 4.1 mmol/L (3.5-5.1); Protein, Total 7.7 g/dL (6.4-8.2); Sodium Level 139 mmol/L (136-145)
--- NOTE | 2019-10-10 12:29 | ED.DCSUM_ITS ---
- ER Visit Summary Date of Service: 10/10/19 Chief Complaint: Abdominal pain History of Present Illness: The patient is a 59 F with abdominal pain for 2-1/2 weeks. It was worse today and she has decreased stoma output since yesterday, so she came into the ED today. Her stoma was originally placed 35 years ago. It was revised just over 10 years ago at the [facility] by Dr. Neil for a kink. She has also seen Dr. Noble and Dr. Jim locally for other issues. She has a history of gastroparesis and pancreatitis, but her symptoms feel different. She believes her symptoms started after increasing her methotrexate dose??she takes this for psoriatic arthritis. Physical Examination: Afebrile and vital signs unremarkable. Alert and oriented. Abdomen is diffusely tender. No guarding or rebound. Skin appears normal. Test Results: CBC normal. Glucose 217, BUN 23, creatinine 1.45. Alkaline phosphatase 184. Lipase normal. Urinalysis pending. CT pending. Emergency Department Course and Treatment: Patient treated with fluids, morphine, Zofran while awaiting results. Urinalysis unremarkable. CT still pending. Patient required additional pain medicine. Urinalysis normal. CT showed multiple liver lesions concerning for possible metastatic disease. Postoperative changes noted. No sign of obstruction. Patient initially told me that she would like to go home. She was discussed with Dr. Deluna who advised that the patient could follow-up with Dr. Noble. I spoke with the patient again, and she is concerned that her pain is still severe. After discussion with her friend, she would like to be admitted. Hospitalist was contacted for admission. Treatment Plan: As above Disposition: Admission Impression: Abdominal pain, hepatic lesions This note was generated with [employer] dictation software. It may contain incorrect words, spelling, and punctuation that were not noted in review of the chart prior to signing ED Disposition - Plan for ED Patient: Referrals: Mala Mcgrath MD [Primary Care Provider] -
[2019-10-10 13:02] LABS: Bacteria 0 SEEN /hpf (None Seen); Mucous, Urine 0 SEEN /hpf (<or=2+); Red Blood Cells-Urine 0 SEEN /hpf (0-5); White Blood Cells 0 SEEN /hpf (0-5)
[2019-10-10 13:06] LABS: Color, Urine Yellow (Yellow); Glucose, Dipstick Normal (Normal); Ketone-Dipstick Negative (Negative); Leukocyte Esterase-Dipstick Negative /ul (Negative); Nitrite-Dipstick Negative (Negative); Occult Blood-Urine Negative /ul (Negative); Protein-Dipstick 30 mg/dl (Negative); Urine Bilirubin Dipstick Negative (Negative); Urine Clarity Clear (Clear); Urine Urobilinogen Normal (Normal)
[2019-10-10 13:11] LABS: Squamous Epithelial Cells - UA 0-5 SEEN /hpf (5-10)
--- NOTE | 2019-10-10 15:08 | NURSING ---
MED SURG ABD PAIN, LIVER MASSES PAINTSIL
[2019-10-10] MEDS: 0.9% Normal Saline 1,000 ML 75 ML IV (15:55)
[2019-10-10] MEDS: Morphine 2 MG/ML Syringe IV ×2 (15:57→21:49)
--- NOTE | 2019-10-10 16:06 | PCM.HP.STD ---
Problem List (1) 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 2 diabetes mellitus Status: Chronic (2) Benign essential hypertension Status: Chronic (3) Diabetic gastroparesis Status: Chronic (4) Diabetes Status: Chronic Qualifiers: Diabetes mellitus type: type 2 Diabetes mellitus longterm insulin use: with exterminator use Diabetes mellitus complication status: with other specified complication Qualified Code(s): E11.69 - Type 2 diabetes mellitus with other specified complication; Z79.4 - FDC (current) use of insulin (5) Secondary pulmonary arterial hypertension Status: Chronic (6) Chronic diastolic (congestive) heart failure Status: Chronic (7) Depression with anxiety Status: Chronic (8) H/O coronary artery bypass surgery Status: Resolved Comment: CABG x 4 JONES-LAD, SVG-D1, SVG-OM1, SVG-LPDA 05/18/2012 (9) COPD (chronic obstructive pulmonary disease) Status: Chronic Qualifiers: (10) Obstructive sleep apnea Status: Chronic (11) Right thyroid nodule Status: Chronic Comment: 1.4 centimeter right sided nodule on CT scan (12) Ulcerative colitis Status: Chronic (13) Hyperlipidemia Status: Chronic Qualifiers: Hyperlipidemia type: unspecified Qualified Code(s): E78.5 - Hyperlipidemia, unspecified History of Present Illness Date of Admission: 10/10/19 Chief Complaint: Abdomional pain - 2 weeks The patient is a 59 year old F with multiple comorbidities significant for ulcerative colitis status post colectomy, status post colostomy, complicated by subsequent intestinal obstruction, status post adhesiolysis, abdominal abscess, status post repeat surgery, history of type II DM complicated by gastroparesis, history of pancreatitis who comes in with crampy abdominal pain ongoing for 2 weeks. Patient denied any fever or chills. She noticed that she did not get much output from her stoma the whole of yesterday. She has cramps in her abdomen that comes and goes, is worse when she eats and walks. She has had increased output from the stoma today after being given oral contrast for her CT of the abdomen and pelvis. She had her thyroid nodules removed by Dr. Noble in 2018 and the pathology was benign. Vitals in the ED showed temperature of 97.4F, heart rate 71, blood pressure 155/86, respiratory rate 16, SPO2 was 96% on room air. WBC count was 8.8, hemoglobin 13.4, platelet count was 200, BMP was unremarkable except for BUN of 23, creatinine 1.45, which is about her baseline, UA was unremarkable. CT of the abd/pelvis showed prominent 5.4 cm x 2.3 cm x 4.6 cm inhomogeneous density in the inferior aspect of the right lower lobe of the liver, 9.4 mm hypodensity in the posterior medial aspect of the right lobe of the liver, suspicious for metastatic process. Past Medical History Past Medical History (Chronic Problems): Chronic Problems (Last Reviewed 09/11/19 @ 14:[address] Heath Dewitt MD) 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) Benign essential hypertension (Chronic) Diabetic gastroparesis (Chronic) Diabetes (Chronic) Secondary pulmonary arterial hypertension (Chronic) Chronic diastolic (congestive) heart failure (Chronic) BMI 31.0-31.9,adult (Chronic) Depression with anxiety (Chronic) Gastroenteritis (Chronic) Arthritis (Chronic) Essential (primary) hypertension (Chronic) Atherosclerosis of coronary artery bypass graft without angina pectoris (Chronic) CABG x 4 JONES-LAD, SVG-D1, SVG-OM1, SVG-LPDA 05/18/2012 PCI-CLINTON mid D1 with a 2.25 x 12 Promus Synergy 01/12/2018 Mid LAD and Cx 08/30/2012, D1 and prox OM1 09/14/12, Prox SVG, Distal SVG to the Mid OM 10/31/2012 COPD (chronic obstructive pulmonary disease) (Chronic) Anemia of chronic renal failure, stage 3 (moderate) (Chronic) Obstructive sleep apnea (Chronic) Right thyroid nodule (Chronic) 1.4 centimeter right sided nodule on CT scan Ulcerative colitis (Chronic) Hyperlipidemia (Chronic) DM2 (diabetes mellitus, type 2) (Chronic) Medical History: Medical History (Last Reviewed 09/11/19 @ 14:[address] Heath Dewitt MD) Secondary pulmonary arterial hypertension (Chronic) I27.21 Chronic diastolic (congestive) heart failure (Chronic) I50.32 Depression with anxiety (Chronic) F41.8 Essential (primary) hypertension (Chronic) I10 Atherosclerosis of coronary artery bypass graft without angina pectoris (Chronic) I25.810 CABG x 4 JONES-LAD, SVG-D1, SVG-OM1, SVG-LPDA 05/18/2012 PCI-CLINTON mid D1 with a 2.25 x 12 Promus Synergy 01/12/2018 Mid LAD and Cx 08/30/2012, D1 and prox OM1 09/14/12, Prox SVG, Distal SVG to the Mid OM 10/31/2012 COPD (chronic obstructive pulmonary disease) (Chronic) J44.9 Anemia of chronic renal failure, stage 3 (moderate) (Chronic) N18.3, D63.1 Obstructive sleep apnea (Chronic) G47.33 Gastroparesis (Suspected) K31.84 Right thyroid nodule (Chronic) E04.1 1.4 centimeter right sided nodule on CT scan Ulcerative colitis (Chronic) K51.90 Hyperlipidemia (Chronic) E78.5 DM2 (diabetes mellitus, type 2) (Chronic) E11.9 CKD (chronic kidney disease) stage 3, GFR 30-59 ml/min N18.3 Chronic renal insufficiency N18.9 Depression F32.9 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 HTN (hypertension) I10 Hypertensive chronic kidney disease with stage 1 through stage 4 chronic kidney disease, or unspecified chronic kidney disease I12.9 Menieres disease H81.09 Psoriasis L40.9 Thyroid mass E07.9 Type 2 diabetes mellitus with diabetic polyneuropathy E11.42 Vertigo R42 Chronic respiratory failure J96.10 Lumbar back pain (Resolved) M54.5 Syncope R55 Allergies ciprofloxacin Allergy (Intermediate, Verified 08/01/19 13:21) Swelling cinnamon [Cinnamon] Allergy (Verified 08/01/19 13:21) Anaphylaxis Influenza Virus Vaccines Allergy (Verified 08/01/19 13:21) Shortness of breath liraglutide [From Victoza] Allergy (Verified 08/01/19 13:21) Anaphylaxis metronidazole [From Flagyl] Allergy (Verified 08/01/19 13:21) Hives Metronidazole HCl [From Flagyl] Allergy (Verified 08/01/19 13:21) Hives Penicillins Allergy (Verified 08/01/19 13:21) Hives Sulfa (Sulfonamide Antibiotics) Allergy (Verified 08/01/19 13:21) Hives codeine Adverse Reaction (Verified 08/01/19 13:21) Stops Ileostomy dicyclomine HCl [From Bentyl] Adverse Reaction (Verified 08/01/19 13:21) Nausea metformin HCl [From Glucophage] Adverse Reaction (Verified 08/01/19 13:21) Nausea ranolazine Adverse Reaction (Verified 08/01/19 13:21) Nausea/Vom/Diarrhea Amcmgay-Fcn-Bjn Reductase Inhibitor Adverse Reaction (Verified 08/01/19 13:21) Nausea/joints ache Home Medications: Ambulatory Orders Medication Instructions Recorded Aspirin E.C. [Ecotrin] 81 mg PO DAILY 01/11/18 nitroglycerin 0.4 mg sublingual 0.4 mg SUBLINGUAL Q5M PRN #25 tab 02/18/18 tablet Baclofen [Lioresal] 10 mg PO QHS 06/30/18 Hydrocortisone 1% Crm [Hytone] 1 applic TOPICAL BID 06/30/18 atorvastatin 80 mg tablet 80 mg PO QHS #90 tab 09/06/18 venlafaxine 150 mg 150 mg PO DAILY #90 cap 09/06/18 capsule,extended release 24 hr fluticasone furoate 100 1 inh INHALATION Q24H #60 ea 09/19/18 mcg-vilanterol 25 mcg/dose inhalation powder omeprazole 20 mg capsule,delayed 20 mg PO DAILY #90 cap 11/10/18 release cholecalciferol (vitamin D3) 50 2,000 unit PO DAILY #90 cap 12/06/18 mcg (2,000 unit) capsule tramadol 50 mg tablet 50 mg PO BID PRN 05/03/19 clopidogrel 75 mg tablet 75 mg PO DAILY #90 tab 05/29/19 buprenorphine 15 mcg/hour weekly 1 patch TRANSDERMAL SA 06/14/19 transdermal patch calcium acetate(phosphat bind) 667 667 mg PO BID #180 tab 07/06/19 mg tablet bacitracin 500 unit/gram topical 1 applic TOPICAL Q12H #28.4 g 07/12/19 ointment ondansetron 4 mg oral soluble film 4 mg PO Q8H PRN #30 ea 08/16/19 folic acid 1 mg tablet 1 mg PO DAILY 09/11/19 promethazine 25 mg tablet 25 mg PO Q6H PRN PRN #30 tab 09/25/19 Furosemide 40 mg PO DAILY PRN PRN 10/10/19 Insulin Glargine [Lantus Solostar 100 unit SUBCUT QHS 10/10/19 U-100 Insulin] Insulin Lispro [Humalog Kwikpen] 45 unit SQ TIDCM 10/10/19 Isosorbide DN [Isordil] 30 mg PO BID 10/10/19 Methotrexate Sodium/Pf 0.8 ml IJ MOORE 10/10/19 [Methotrexate 50 mg/2 ml Vial] Metoprolol Tartrate 25 mg PO DAILY 10/10/19 Metoprolol Tartrate 50 mg PO BID 10/10/19 Pregabalin 50 mg PO BID 10/10/19 traZODone [Desyrel] 50 mg PO QHS 10/10/19 Surgical History: Surgical History (Last Reviewed 09/11/19 @ 14:[address] Heath Dewitt MD) H/O coronary artery bypass surgery (Resolved) Onset Date: 05/18/12 Z95.1 CABG x 4 JONES-LAD, SVG-D1, SVG-OM1, SVG-LPDA 05/18/2012 History of coronary artery stent placement (Resolved) Onset Date: 01/12/18 Z95.5 PCI-CLINTON mid D1 with a 2.25 x 12 Promus Synergy 01/12/2018 Mid LAD and Cx 08/30/2012, D1 and prox OM1 09/14/12, Prox SVG, Distal SVG to the Mid OM 10/31/2012 H/O sinus surgery Z98.890 Ileostomy status Z93.2 ABD abscess removal 09/18/2017 H/O colectomy Z98.890, Z90.49 H/O total hysterectomy Z98.890, Z90.710 History of cholecystectomy Z90.49 history closed fissure ileostomy left thumb surgery lysis of adhesion vestibular nerve surgery for Meniere's Surgical History: angioplasty, coronary bypass surgery - Status post 12 stents, hysterectomy, - - 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, status post ileostomy, status post left arm surgery, status post ileostomy reversal, post sinus surgery Psychiatric History: Anxiety, Depression 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 Heath Dewitt MD) Mother CVA (cerebral vascular accident) Diabetes Brother Heart disease Myocardial infarction Pancreatitis Father Cancer Lymphoma Grandmother Myocardial infarction Sister COPD (chronic obstructive pulmonary disease) History Items: Diabetes, Heart Disease, - - No autoimmune disease that she is aware of Paternal Family History: Family History (Last Reviewed 09/11/19 @ 14:[address] Heath Dewitt MD) Mother CVA (cerebral vascular accident) Diabetes Brother Heart disease Myocardial infarction Pancreatitis Father Cancer Lymphoma Grandmother Myocardial infarction Sister COPD (chronic obstructive pulmonary disease) History Items: Cancer - Father has H/o lymphoma, - - No autoimmune disease that she is aware of Review of Systems Constitutional: Reports: Anorexia, Malaise, Weakness, Fatigue. Denies: Chills, Fever, Night Sweats, Weight Change Eyes: Denies: Blurred vision, Cataracts, Pain, Redness, Vision Change HEENT: Denies: Difficulty Hearing, Difficulty Swallowing, Head Aches, Sinus Congestion, Sinus Drainage, Sore Throat Cardiovascular: Denies: Chest Pain, Claudication, Orthopnea, Palpitations, Paroxysmal Noc. Dyspnea Respiratory: Denies: Cough, Hemoptysis, Shortness of breath at rest, Shortness of breath upon exertion, Sputum production Gastrointestinal: Reports: Abdominal Pain, Nausea. Denies: Constipation, Diarrhea, Dyspepsia, Hematemesis, Hematochezia, Melena, Vomiting Genitourinary: Denies: Dysuria, Frequency, Incontinence Musculoskeletal: Denies: Joint Pain, Joint stiffness, Joint swelling, Joint Tenderness Skin: Denies: Rash, Wounds Neurological: Denies: Difficulty swallowing, Focal weakness, Numbness, Tingling Psychiatric: Denies: Anxiety, Depression, Homicidal Ideations, Suicidal Ideations Hematologic/ Lymphatic: Denies: Easy Bruising, Easy Bleeding VTE Information - Inpt Only VTE Present on Admission: No VTE Pharm Prophylaxis ordered?: Yes - Physical Exam Vitals/I&O's: Vital Signs Temp Pulse Resp BP Pulse Ox 98.6 F 75 16 156/79 H 96 10/10/19 15:23 10/10/19 15:23 10/10/19 15:23 10/10/19 15:23 10/10/19 15:23 Oxygen Delivery Method Room Air Weight: 89 kg Body Mass Index (BMI) 30.7 Finger Stick Blood Glucose 463 Intake and Output for Last 24 Hours 10/08/19 10/09/19 10/10/19 23:59 23:59 23:59 Intake Total 1000 / 1000 Balance 999 / 999 General: Alert, Oriented x3, Cooperative, No apparent distress HEENT: Atraumatic, PERRLA, EOMI, Normocephalic Oral: Dry Mucosa Neck: Supple Lungs: Clear to auscultation, Normal air movement Cardiovascular: Regular rate, Regular Rhythm, Normal S1, Normal S2, No murmurs Abdomen: Bowel Sounds Present, Soft, Non Tender, Non-Distended, - - multiple abdominal scars, inthe midline, RLQ Extremities: No edema Skin: No rashes Musculoskeletal: No Tenderness to Palpation of Joints or Extremities Lymphatic: No Cervical, Supraclavicular, or Inguinal Adenopathy Neurological: Cranial nerves II-XII grossly intact, Neuro grossly intact Psych/Mental Status: Normal Affect, Appropriate Laboratory Results 10/10/19 11:20: WBC 8.8, RBC 4.50, Hgb 13.3, Hct 41.0, MCV 91.1, MCH 29.6, MCHC 32.4, RDW Std Deviation 59.5 H, RDW Coeff of Jan 18.9 H, Plt Count 200, MPV 12.3 H, Immature Gran % (Auto) 0.700, Neut % (Auto) 65.7, Lymph % (Auto) 25.9, [place] % (Auto) 2.4, Eos % (Auto) 4.6, Baso % (Auto) 0.7, Absolute Neuts (auto) 5.8, Absolute Lymphs (auto) 2.27, Nucleated RBC % 0 10/10/19 11:20: Sodium 139, Potassium 4.1, Chloride 105, Carbon Dioxide 26.0, Anion Gap 8, BUN 23 H, Creatinine 1.45 H, Estim Creat Clear Calc 39.62, Est GFR (MDRD) Af Amer 47 L, Est GFR (MDRD) Non-Af 39 L, BUN/Creatinine Ratio 15.9, Glucose 217 H, Calcium 9.6, Total Bilirubin 0.80, AST 32, ALT 31, Alkaline Phosphatase 184 H, Total Protein 7.7, Albumin 3.4, Globulin 4.3 H, Albumin/Globulin Ratio 0.8 L, Lipase 209 10/10/19 12:56: Urine Color Yellow, Urine Clarity Clear, Urine pH 5.0, Ur Specific Dwight 1.020, Urine Protein 30 H, Urine Glucose (UA) Normal, Urine Ketones Negative, Urine Occult Blood Negative, Urine Nitrite Negative, Urine Bilirubin Negative, Urine Urobilinogen Normal, Ur Leukocyte Esterase Negative, Urine RBC 0 SEEN, Urine WBC 0 SEEN, Ur Squamous Epith Cells 0-5 SEEN, Urine Bacteria 0 SEEN, Urine Mucus 0 SEEN Current Medications Acetaminophen (Tylenol) 650 mg PO Q6H PRN PRN PRN Reason: Pain Score 1-10/Temp > 100.7 F Albuterol Sulfate (Ventolin Aerosols) 2.5 mg INHALATION Q6HWA.RT [facility] Aspirin (Ecotrin) 81 mg PO DAILY@0800 [facility] Atorvastatin Calcium (Lipitor) 80 mg PO QHS KIRSTEN Baclofen (Lioresal) 10 mg PO QHS [facility] Budesonide (Pulmicort Aerosol) 0.5 mg INHALATION Q12H.RT [facility] Calcium Acetate (Phoslo Gel Cap) 667 mg PO BIDCM [facility] Cholecalciferol (Vitamin D (25mcg)) 2,000 unit PO DAILYCM [facility] Dextrose (D50w Syringe) 0 gm IV X1 PRN; Protocol PRN Reason: Hypoglycemia Dicyclomine HCl (Bentyl) 10 mg PO ACHS [facility] Folic Acid (Folic Acid) 1 mg PO DAILYCM [facility] Glucagon () 1 mg IM .X1 PRN PRN Reason: Hypoglycemia Heparin Sodium (Porcine) (Heparin Na) 5,000 unit SC Q8 [facility] Sodium Chloride () 250 mls @ 15 mls/hr IV .[id number] PRN PRN Reason: Saline Flush Sodium Chloride () 1,000 mls @ 75 mls/hr IV .[id number] [facility] Stop: 10/11/19 05:00 Last Admin: 10/10/19 15:55 Dose: 75 mls/hr Documented by: Insulin Glargine (Lantus (Bkc)) 100 units SC QHS [facility] Insulin Human Lispro (Humalog Kwikpen (Bkc)) 45 unit SC 0800,1200,1700 [facility] Insulin Human Lispro (Humalog Kwikpen (Bkc)) 0 unit SC ACHS [facility]; Protocol Isosorbide Dinitrate (Isordil) 30 mg PO BID [facility] Magnesium Hydroxide (Milk Of Magnesia) 30 ml PO DAILY PRN PRN PRN Reason: Constipation Metoprolol Tartrate (Lopressor (Beta Isaac)) 25 mg PO BID [facility] Metoprolol Tartrate (Lopressor (Beta Isaac)) 50 mg PO BID [facility] Morphine Sulfate () 2 mg IV Q3H PRN PRN PRN Reason: Pain Score 6-10/10 Last Admin: 10/10/19 15:57 Dose: 2 mg Documented by: Nitroglycerin (Nitrostat) 0.4 mg SUBLINGUAL Q5M PRN PRN Reason: CARDIAC/CHEST PAIN Non-Formulary Medication (Buprenorphine) 1 patch transdermal SA [facility] Ondansetron HCl (Zofran) 4 mg IV Q8H PRN PRN PRN Reason: NAUSEA/VOMITING Pregabalin (Lyrica) 50 mg PO BID KIRSTEN Promethazine HCl (Phenergan Tablet) 25 mg PO Q6H PRN PRN PRN Reason: NAUSEA Sodium Chloride () 10 - 40 ml IV UD PRN PRN Reason: SALINE FLUSH Tramadol HCl (Ultram) 50 mg PO BID PRN PRN Reason: NOT SPECIFIED Trazodone HCl (Desyrel) 50 mg PO QHS KIRSTEN Venlafaxine HCl (Effexor Xr) 150 mg PO DAILY [facility] Assessment/Plan All Active Problems (Last Reviewed 09/11/19 @ 14:[address] Heath Dewitt MD) Pancreatitis (Resolved) H/O coronary artery bypass surgery (Resolved 05/18/12) History of coronary artery stent placement (Resolved 01/12/18) Abdominal pain (Resolved) Acute pancreatitis (Resolved) COPD exacerbation (Resolved) Chest pain (Resolved) Chest pain (Resolved) Hallucinations (Resolved) Hypokalemia (Resolved) Irritant dermatitis (Resolved) Lumbar back pain (Resolved) Multiple falls (Resolved) Sepsis (Resolved) Shortness of breath (Resolved) Surgical wound dehiscence (Resolved) 59 year old F with multiple comorbidities significant for ulcerative colitis status post colectomy, status post colostomy, complicated by subsequent intestinal obstruction, status post adhesiolysis, abdominal abscess, status post repeat surgery, history of type II DM complicated by gastroparesis, who comes in with abdominal pain ongoing for 2 and half weeks. 1. Abdominal pain, unclear etiology, no intestinal obstruction on CT of the abdomen and pelvis on admission Patient has increased output in her colostomy compared to the day before admission We will continue to monitor symptomatically, keep n.p.o., advance diet as can be tolerated P.o. Bentyl as needed, pain control PRN, IV fluids 2. New liver lesions, noted on CT of her abdomen and pelvis on admission No history of cancer Will get CT-guided biopsies in a.m. We will check INR/PTT Hold off on Plavix for CT-guided biopsy Hold heparin tomorrow morning 3. Type II DM, complicated by gastroparesis, patient blood sugars relatively low We will continue to monitor how patient is feeling and adjust her home insulin regimen to prevent hypoglycemia 4. CAD status post CABG/status post 12 stents/chronic diastolic CHF/hypertension Continue on aspirin, statin, isosorbide, metoprolol Plavix on hold 5. Chronic back pain/degenerative joint disease, continue on buprenorphine patch, tramadol as needed, morphine IV prn as second line 6. Anxiety/depression, continue on trazodone, venlafaxine 7. DVT prophylaxis with heparin subcu Inpatient E&M: 52697 Init Hosp L3
[2019-10-10] MEDS: Dicyclomine 10 MG Capsule PO ×2 (16:38→23:12)
[2019-10-10 16:56] LABS: Bedside Glucose 116 mg/dL (70-110)
[2019-10-10] MEDS: Calcium Acetate 667 MG Capsule PO (17:57)
[2019-10-10] MEDS: Albuterol 2.5 MG/3 ML VIAL.NEB. INHALATION (18:29)
[2019-10-10] MEDS: Budesonide Respules 0.5 MG/2 ML AMPUL.NEB. INHALATION (18:29)
[2019-10-10] MEDS: 0.9% Saline Lock 10 ML Syringe IV (21:49)
[2019-10-10] MEDS: Atorvastatin Calcium 80 MG Tablet PO (23:12)
[2019-10-10] MEDS: Heparin Injection (Vial) 5,000 UNIT/ML VIAL 5000 UNIT SC (23:12)
[2019-10-10] MEDS: Metoprolol Tartrate 25 MG Tablet PO (23:12)
[2019-10-10] MEDS: Metoprolol Tartrate 50 MG Tablet PO (23:12)
[2019-10-10] MEDS: Baclofen 10 MG Tablet PO (23:13)
[2019-10-10] MEDS: Isosorbide DN 30 MG Tablet PO (23:13)
[2019-10-10] MEDS: traZODone 50 MG Tablet PO (23:13)
[2019-10-10] MEDS: Pregabalin 50 MG Capsule PO (23:14)
[2019-10-11] VITALS (20 sets, daily range): BP systolic 95–176; BP diastolic 33–67; PULSE 64–82; RESP 12–18; TEMP 36.8–37.3; O2SAT 90–100; BMI 30.7
--- NOTE | 2019-10-11 | LIV_PTH ---
PATIENT: ASHLEY MÉNDEZ LOC: [facility] U#:[id number] AGE/SX: 59/F ROOM: [facility] RE10/10/[address]: Dr. Shiva Chandler DO : 1960 BED: 1 DIS: 10/13/2019 SPEC #: [id number] RECD: 10/11/19 11:00 STATUS: ISAAC REReji #: [id number] BLAKE: 10/11/19 00:[address]: Shiva Chandler DEPT: SURGICAL PATHOLOGY RECD BY: Raymond Valdovinos ENTERED: 10/11/19 11:01 SP TYPE: LIVER RES OTHR DR: MD Dr. Mala Forbes MD Tissues: Liver, NOS Procedures: PAS with Diastase (control) Trichrome (control) Special Stain Group II PAS Stain (control) Surgery Specimen Level V Retic (control) Iron Stain (control) Imprint (control) HEADER OPERATION: CT-guided liver biopsy PRE-OP DIAGNOSIS: Liver mass TISSUE SUBMITTED: Liver 18 gauge MICROSCOPIC DIAGNOSIS Liver mass, CT-guided core biopsy: Liver parenchymal tissue, extensive macrovesicular and microvesicular steatosis and changes consistent with early incipient cirrhosis. Negative for malignancy. See microscopic description and comment. SJ:katie 10/13/19 COMMENT The specimen is evaluated at the time of biopsy by Dr. Whelan. Immediate Evaluation = Negative for malignant cells. The findings are suggestive of nonalcoholic steatohepatitis with early incipient cirrhosis. Correlation with clinical, radiologic findings and appropriate follow up are necessary. Case has been reviewed in consultation with Dr. Bob who concurs with the above diagnosis. IDC:AM MICROSCOPIC DESCRIPTION Slides are reviewed. The specimen shows liver parenchymal tissue with preserved lobular architecture in most of the specimen and focal areas of distorted normal lobular architecture and suggestive of nodules formation. Hepatocytes show extensive macrovesicular and microvesicular steatosis, glycogenation of nuclei, ballooning degeneration and mild reactive atypia. Significant atypia is not seen. The lobules also show mild chronic inflammatory cell infiltrates. Portal area shows mild to moderate chronic inflammation, mild ductular proliferation. Trichrome stain shows increased portal and jperiportal fibrosis and focal area of bridging fibrosis. Iron stain shows absent iron. PAS stain without and without diastase does not show any abnormal accumulation of protein. Reticulin stain is unremarkable. All stains are performed with appropriate matched controls. GROSS DESCRIPTION Received in fixative is one container labeled with the patient's name and designated liver, CT-guided biopsy. The specimen consists of four elongated fragments of rich soft tissue measuring 1.5 to 1.8 cm in length and 0.1 cm in diameter. One touch imprint is prepared at the time of core biopsy. The entire specimen is submitted in one cassette. / SJ:katie 10/11/19 TC:5 CPT: 09192, 47415 x5, [id number]
[2019-10-11] MEDS: HYDROmorphone 0.5 MG/0.5 ML SYRINGE IV ×5 (00:31→23:12)
[2019-10-11] MEDS: 0.9% Saline Lock 10 ML Syringe IV ×5 (00:32→23:12)
[2019-10-11 01:41] LABS: Bedside Glucose 95 mg/dL (70-110)
[2019-10-11 05:38] LABS: Absolute Lymphocyte Count 2.28 X10^3/uL (0.83-4.51); Absolute Neutrophil Count 3.6 X10^3/uL (2.0-7.7); Basophil# 0.05 X10^3/uL; Basophil% 0.8 % (0-1); Eosinophil# 0.36 X10^3/uL; Eosinophils% 5.5 % (0-5); Hematocrit 33.9 % (37-47); Lymphocyte # 2.28 X10^3/ul (4.0); Mean Corp Hgb Conc 32.4 g/dL (32-36); Mean Corpuscular Hgb 29.8 pg (27.0-32.0); Mean Corpuscular Volume 91.9 fL (81-99); Mean Platelet Vol. 12.6 fl (6.2-12.0); Monocyte# 0.25 X10^3/uL; Monocyte% 3.8 % (0-10); NRBC Flagged by Analyzer 0 % (0-5); Neutrophil # 3.55 X10^3/uL (2.7-7.7); Neutrophil % 54.4 % (47-70); Platelet Count 178 K/mm3 (150-450); RBC Distribution Width CV 18.5 % (11.6-14.6); Red Blood Count 3.69 M/mm3 (4.2-5.4); White Blood Count 6.5 K/mm3 (4.4-11.0)
[2019-10-11 05:46] LABS: International Normalized Ratio 1.1; Prothrombin Time (Protime)PT. 13.6 SECONDS (11.7-14.9)
[2019-10-11 05:47] LABS: Partial Thromboplast Time 31.8 Seconds (24.1-36.2)
--- NOTE | 2019-10-11 05:55 | CT_ITS ---
PROCEDURE: CT DIRECTED CORE LIVER BIOPSY INDICATION: Female, 59 years old. LIVER MASS biopsy PHYSICIAN: Dr. YANET Martinez CONSENT: Written informed consent was obtained having explained the risks, benefits and alternatives in detail with the patient who accepted the risks and agreed to proceed. Laboratory review and clinical assessment was performed. CONSCIOUS SEDATION PROTOCOL: The Drugs used were: 2 mg Versed, IV., and 50 mcg Fentanyl, IV. The sedation time was: 25 minutes. Conscious sedation was started at 10:00 AM and terminated at 10:25 AM. The conscious sedation protocol was independently monitored. RADIATION DOSAGE (If Supplied By Facility): CTDIvol = ( 16 ) mGy, DLP = ( 778.94 ) mGycm Individualized dose optimization techniques were used for this CT. TECHNIQUE: Using CT image guidance with image documentation, a suitable location in the right lobe of the liver was identified. Using an anterior approach, puncture of the liver was uneventful with an 18-gauge core needle system. 4 18-gauge core samples were obtained, and submitted in formalin to the pathologist for further assessment. Followup CT scan revealed no distinct sequelae. CT/Biopsy/Inj or Needle Placement IMPRESSION: 1. CT directed core needle biopsy of the liver, using CT image guidance with image documentation as described. 2. Conscious Sedation protocol utilized with independent monitoring. Electronically Signed: Eric Spencer, at 11:13 EDT , Service support ,
[2019-10-11 05:57] LABS: ALB/GLOB Ratio 0.8 RATIO (0.9-2.4); AST(SGOT) 26 U/L (15-37); Alanine Aminotransfer ALT/SGPT 24 U/L (13-56); Albumin, Serum 2.7 g/dL (3.2-5.0); Alkaline Phosphatase 120 U/L (45-117); Anion Gap 6 (5-15); BUN 17 mg/dL (7-18); BUN/Creat Ratio 13.1 RATIO (10-20); Calcium,Total 8.3 mg/dL (8.5-10.1); Chloride 106 mmol/L (98-107); EST Glomerular Filtration Rate 44 mL/min (>60); Est Glom Filt Rate - Afr Amer 54 mL/min (>60); Estimated Creatinine Clearance 44.19 ml/min; Globulin 3.5 g/dL (2.2-4.2); Glucose 137 mg/dL (74-106); Potassium 3.9 mmol/L (3.5-5.1); Protein, Total 6.2 g/dL (6.4-8.2); Sodium Level 138 mmol/L (136-145)
[2019-10-11] MEDS: Dicyclomine 10 MG Capsule PO ×4 (06:39→22:48)
[2019-10-11] MEDS: Budesonide Respules 0.5 MG/2 ML AMPUL.NEB. INHALATION ×2 (07:00→19:40)
[2019-10-11] MEDS: Albuterol 2.5 MG/3 ML VIAL.NEB. INHALATION ×2 (07:00→19:30)
--- NOTE | 2019-10-11 09:20 | NURSING ---
Was asked to see patient for irritation to the peristomal skin. patient states she has some leakage from the filter on the appliance. states she currently has one of her old appliances on. the irritation is noted inferior to the ostomy appliance and appears to be from the appliance folding or wrinkling up. removed appliance. the peristomal skin is intact except for the small area of irritation inferiorly. stoma measures approx 1 1/8 and sits just above skin level. stoma is beefy red and moist. cleansed peristomal skin with soap and water. pat dry. applied a new 1 piece Convex Hoillister appliance with an Adapt ring. pt tolerated well. pt denies further needs at this time.
[2019-10-11] MEDS: fentaNYL 100 MCG/2 ML Ampul IV (09:57)
[2019-10-11] MEDS: Midazolam 2 MG/2 ML Syringe IV (09:57)
--- NOTE | 2019-10-11 11:28 | PCM.PROGNOTE ---
<Linda Galo - Last Filed: 10/11/19 11:40> Subjective: Patient seen and examined. Continues to complain of generalized abdominal cramping. Reports she has had less output from her ostomy recently however has had poor oral intake as well. Patient also reports over the past 2 to 3 weeks she has had presyncope episodes which typically happen with activity and describes associated shortness of breath, chest tightness and nausea/vomiting. - Physical Exam Vitals/I&O's: Vital Signs Temp Pulse Resp BP Pulse Ox 98.3 F 68 13 154/48 H 100 10/11/19 08:15 10/11/19 10:54 10/11/19 10:54 10/11/19 10:54 10/11/19 10:54 Oxygen Flow Rate (L/min) [5] 2 Oxygen Flow Rate (L/min) [4] 2 Oxygen Flow Rate (L/min) [3] 2 Oxygen Flow Rate (L/min) [2] 2 Oxygen Flow Rate (L/min) [1 ( 2 Initial Baseline)] Oxygen Flow Rate (L/min) 2 Oxygen Delivery Method [5] Nasal Cannula Oxygen Delivery Method [4] Nasal Cannula Oxygen Delivery Method [3] Nasal Cannula Oxygen Delivery Method [2] Nasal Cannula Oxygen Delivery Method [1 ( Nasal Cannula Initial Baseline)] Oxygen Delivery Method Nasal Cannula Weight: 196 lb 3.382 oz Body Mass Index (BMI) 30.7 Finger Stick Blood Glucose 463 Intake and Output for Last 24 Hours 10/09/19 10/10/19 10/11/19 23:59 23:59 23:59 Intake Total 1200 / 1440 1555 / 1555 Balance 1200 / 1440 1555 / 1555 General: Alert, Oriented x3, Cooperative HEENT: Atraumatic, PERRLA, EOMI, Normocephalic Oral: Dry Mucosa Neck: Supple, No JVD, Negative Carotid Bruits Lungs: Clear to auscultation, Normal air movement Cardiovascular: Regular rate, No murmurs Abdomen: Bowel Sounds Present, Soft, Non Tender, Non-Distended, - - Ostomy intact Extremities: No clubbing, No cyanosis, No edema, Capillary Refill Less than 3 Seconds Skin: No rashes, No breakdown Musculoskeletal: No Tenderness to Palpation of Joints or Extremities Neurological: Cranial nerves II-XII grossly intact, Neuro grossly intact Psych/Mental Status: Normal Affect, Appropriate Laboratory Results 10/10/19 11:20: WBC 8.8, RBC 4.50, Hgb 13.3, Hct 41.0, MCV 91.1, MCH 29.6, MCHC 32.4, RDW Std Deviation 59.5 H, RDW Coeff of Jan 18.9 H, Plt Count 200, MPV 12.3 H, Immature Gran % (Auto) 0.700, Neut % (Auto) 65.7, Lymph % (Auto) 25.9, Pitt % (Auto) 2.4, Eos % (Auto) 4.6, Baso % (Auto) 0.7, Absolute Neuts (auto) 5.8, Absolute Lymphs (auto) 2.27, Nucleated RBC % 0 10/10/19 11:20: Sodium 139, Potassium 4.1, Chloride 105, Carbon Dioxide 26.0, Anion Gap 8, BUN 23 H, Creatinine 1.45 H, Estim Creat Clear Calc 39.62, Est GFR (MDRD) Af Amer 47 L, Est GFR (MDRD) Non-Af 39 L, BUN/Creatinine Ratio 15.9, Glucose 217 H, Calcium 9.6, Total Bilirubin 0.80, AST 32, ALT 31, Alkaline Phosphatase 184 H, Total Protein 7.7, Albumin 3.4, Globulin 4.3 H, Albumin/Globulin Ratio 0.8 L, Lipase 209 10/10/19 12:56: Urine Color Yellow, Urine Clarity Clear, Urine pH 5.0, Ur Specific [place] 1.020, Urine Protein 30 H, Urine Glucose (UA) Normal, Urine Ketones Negative, Urine Occult Blood Negative, Urine Nitrite Negative, Urine Bilirubin Negative, Urine Urobilinogen Normal, Ur Leukocyte Esterase Negative, Urine RBC 0 SEEN, Urine WBC 0 SEEN, Ur Squamous Epith Cells 0-5 SEEN, Urine Bacteria 0 SEEN, Urine Mucus 0 SEEN 10/10/19 16:08: POC Glucose 116 H 10/10/19 23:02: POC Glucose 95 10/11/19 05:06: WBC 6.5, RBC 3.69 L, Hgb 11.0 L, Hct 33.9 L, MCV 91.9, MCH 29.8, MCHC 32.4, RDW Std Deviation 60.0 H, RDW Coeff of Jan 18.5 H, Plt Count 178, MPV 12.6 H, Immature Gran % (Auto) 0.500, Neut % (Auto) 54.4, Lymph % (Auto) 35.0, Pitt % (Auto) 3.8, Eos % (Auto) 5.5 H, Baso % (Auto) 0.8, Absolute Neuts (auto) 3.6, Absolute Lymphs (auto) 2.28, Nucleated RBC % 0 10/11/19 05:06: PT 13.6, INR 1.1, APTT 31.8 10/11/19 05:06: Sodium 138, Potassium 3.9, Chloride 106, Carbon Dioxide 26.0, Anion Gap 6, BUN 17, Creatinine 1.30 H, Estim Creat Clear Calc 44.19, Est GFR (MDRD) Af Amer 54 L, Est GFR (MDRD) Non-Af 44 L, BUN/Creatinine Ratio 13.1, Glucose 137 H, Calcium 8.3 L, Total Bilirubin 0.90, AST 26, ALT 24, Alkaline Phosphatase 120 H, Total Protein 6.2 L, Albumin 2.7 L, Globulin 3.5, Albumin/Globulin Ratio 0.8 L Current Medications Acetaminophen (Tylenol) 650 mg PO Q6H PRN PRN PRN Reason: Pain Score 1-10/Temp > 100.7 F Albuterol Sulfate (Ventolin Aerosols) 2.5 mg INHALATION Q6HWA.RT [facility] Last Admin: 10/11/19 07:00 Dose: 2.5 mg Documented by: Aspirin (Ecotrin) 81 mg PO DAILY@0800 [facility] Atorvastatin Calcium (Lipitor) 80 mg PO QHS [facility] Last Admin: 10/10/19 23:12 Dose: 80 mg Documented by: Baclofen (Lioresal) 10 mg PO QHS [facility] Last Admin: 10/10/19 23:13 Dose: 10 mg Documented by: Budesonide (Pulmicort Aerosol) 0.5 mg INHALATION Q12H.RT [facility] Last Admin: 10/11/19 07:00 Dose: 0.5 mg Documented by: Calcium Acetate (Phoslo Gel Cap) 667 mg PO BIDCM [facility] Last Admin: 10/10/19 17:57 Dose: 667 mg Documented by: Cholecalciferol (Vitamin D (25mcg)) [facility] Dextrose (D50w Syringe) 0 gm IV X1 PRN; Protocol PRN Reason: Hypoglycemia Dicyclomine HCl (Bentyl) 10 mg PO ACHS [facility] Last Admin: 10/11/19 06:39 Dose: 10 mg Documented by: Folic Acid (Folic Acid) 1 mg PO DAILYCM [facility] Glucagon () 1 mg IM .X1 PRN PRN Reason: Hypoglycemia Heparin Sodium (Porcine) (Heparin Na) 5,000 unit SC Q8 [facility] Last Admin: 10/10/19 23:33 Dose: Not Given Documented by: Hydromorphone HCl (Dilaudid Inj) 0.5 mg IV Q3H PRN PRN PRN Reason: pain 6-12/15 Last Admin: 10/11/19 08:30 Dose: 0.5 mg Documented by: Sodium Chloride () 250 mls @ 15 mls/hr IV .[id number] PRN PRN Reason: Saline Flush Sodium Chloride () 500 mls @ 0 mls/hr IV .Q0M [facility] Stop: 10/11/19 23:59 Last Infusion: 10/11/19 10:51 Dose: Infused Documented by: Insulin Glargine (Lantus (Bkc)) 100 units SC QHS [facility] Last Admin: 10/10/19 23:16 Dose: Not Given Documented by: Insulin Human Lispro (Humalog Kwikpen (Bkc)) 45 unit SC 0800,1200,1700 [facility] Last Admin: 10/10/19 16:09 Dose: Not Given Documented by: Insulin Human Lispro (Humalog Kwikpen (Bkc)) 0 unit SC ACHS [facility]; Protocol Last Admin: 10/10/19 23:15 Dose: Not Given Documented by: Isosorbide Dinitrate (Isordil) 30 mg PO BID [facility] Last Admin: 10/10/19 23:13 Dose: 30 mg Documented by: Magnesium Hydroxide (Milk Of Magnesia) 30 ml PO DAILY PRN PRN PRN Reason: Constipation Metoprolol Tartrate (Lopressor (Beta Isaac)) 25 mg PO BID [facility] Last Admin: 10/10/19 23:12 Dose: 25 mg Documented by: Metoprolol Tartrate (Lopressor (Beta Isaac)) 50 mg PO BID [facility] Last Admin: 10/10/19 23:12 Dose: 50 mg Documented by: Nitroglycerin (Nitrostat) 0.4 mg SUBLINGUAL Q5M PRN PRN Reason: CARDIAC/CHEST PAIN Ondansetron HCl (Zofran) 4 mg IV Q8H PRN PRN PRN Reason: NAUSEA/VOMITING Pregabalin (Lyrica) 50 mg PO BID [facility] Last Admin: 10/10/19 23:14 Dose: 50 mg Documented by: Promethazine HCl (Phenergan Tablet) 25 mg PO Q6H PRN PRN PRN Reason: NAUSEA Sodium Chloride () 10 - 40 ml IV UD PRN PRN Reason: SALINE FLUSH Last Admin: 10/11/19 08:31 Dose: 10 ml Documented by: Tramadol HCl (Ultram) 50 mg PO BID PRN PRN Reason: Pain Score 6-10/10 Trazodone HCl (Desyrel) 50 mg PO QHS [facility] Last Admin: 10/10/19 23:13 Dose: 50 mg Documented by: Venlafaxine HCl (Effexor Xr) 150 mg PO DAILY [facility] Medical Necessity - Tobacco Use Smoking Status: Former smoker Tobacco Use: Non-smoker Assessment/Plan All Active Problems (Last Reviewed 09/11/19 @ 14:[address] Heath Dewitt MD) Pancreatitis (Resolved) H/O coronary artery bypass surgery (Resolved 05/18/12) History of coronary artery stent placement (Resolved 01/12/18) Abdominal pain (Resolved) Acute pancreatitis (Resolved) COPD exacerbation (Resolved) Chest pain (Resolved) Chest pain (Resolved) Hallucinations (Resolved) Hypokalemia (Resolved) Irritant dermatitis (Resolved) Lumbar back pain (Resolved) Multiple falls (Resolved) Sepsis (Resolved) Shortness of breath (Resolved) Surgical wound dehiscence (Resolved) 1. Abdominal pain, unclear etiology-CT of abdomen and pelvis on admission shows liver lesions. Status post colectomy. Patient reports a history of intermittent pain due to gastroparesis however patient states severe generalized cramping she is experiencing for the past 2 weeks feels different from chronic abdominal pain. Clear liquid diet. Send stool for enteric panel, lactoferrin. On Bentyl. May attempt Reglan for abdominal cramping as well. 2. New liver lesions, incidental finding-underwent liver biopsy this morning. 3. Presyncope, shortness of breath and chest tightness-patient reports this is been ongoing for the past 2 weeks and associated with activity. Patient reports when she is shopping in the store, she feels like she is going to pass out if she does not sit down. Symptoms revolved solved with rest. Will trend enzymes. Given underlying cardiac history, patient may benefit from stress test for further cardiac work-up. 4. Type 2 diabetes mellitus complicated by [id number] with sliding scale insulin. Continue home insulin regimen. 5. CAD with history of CABG/12 stents-last stent 2 years ago[address] with Dr. Menon. Continue aspirin, statin, Plavix, isosorbide, metoprolol. 6. Chronic diastolic CHF-no exacerbation. Echocardiogram June 2017 demonstrated an EF of 65%. 7. Hypertension-stable, continue home medication regimen. 8. Chronic back pain/degenerative joint disease-buprenorphine patch. PRN tramadol. PT/OT. 9. Anxiety/depression-continue trazodone, venlafaxine. 10. Chronic kidney disease stage III-at baseline, trend BMP. DVT prophylaxis-heparin subcu This patient was seen by DERIC Gonzales under the supervision of Dr. Chandler. <Shiva Chandler - Last Filed: 10/11/19 13:07> Subjective: Abdominal cramps for the past 3 weeks. Not similar to bouts of gastroparesis as she is not currently having N/V. Decreased ostomy output but also decreased oral intake. So far tolerating Bentyl. - Physical Exam Vitals/I&O's: Vital Signs Temp Pulse Resp BP Pulse Ox 36.8 C 82 16 154/63 H 99 10/11/19 11:29 10/11/19 11:41 10/11/19 11:29 10/11/19 11:29 10/11/19 11:29 Oxygen Flow Rate (L/min) [5] 2 Oxygen Flow Rate (L/min) [4] 2 Oxygen Flow Rate (L/min) [3] 2 Oxygen Flow Rate (L/min) [2] 2 Oxygen Flow Rate (L/min) [1 ( 2 Initial Baseline)] Oxygen Flow Rate (L/min) 2 Oxygen Delivery Method [5] Nasal Cannula Oxygen Delivery Method [4] Nasal Cannula Oxygen Delivery Method [3] Nasal Cannula Oxygen Delivery Method [2] Nasal Cannula Oxygen Delivery Method [1 ( Nasal Cannula Initial Baseline)] Oxygen Delivery Method Room Air Weight: 89 kg Body Mass Index (BMI) 30.7 Finger Stick Blood Glucose 463 Intake and Output for Last 24 Hours 10/09/19 10/10/19 10/11/19 23:59 23:59 23:59 Intake Total 1200 / 1440 2054 Output Total 250 / 250 Balance 1200 / 1440 1804 General: Alert, Cooperative HEENT: Atraumatic, Normocephalic Oral: Dry Mucosa Neck: No Nodes, Thyroid Normal Size and Texture Lungs: Clear to auscultation, Normal air movement, No rhonchi, No wheeze Cardiovascular: Regular rate, Regular Rhythm, Normal S1, Normal S2, No murmurs Abdomen: - - Ostomy intact. mid abdominal tenderness. no rebound. no guarding. Extremities: No clubbing, No edema Skin: No rashes, No breakdown Psych/Mental Status: Normal Affect, Appropriate Microbiology Past 72 Hours 10/11/19 12:00 Stool Stool Lactoferrin - Final Laboratory Results 10/10/19 12:56: Urine Color Yellow, Urine Clarity Clear, Urine pH 5.0, Ur Specific [place] 1.020, Urine Protein 30 H, Urine Glucose (UA) Normal, Urine Ketones Negative, Urine Occult Blood Negative, Urine Nitrite Negative, Urine Bilirubin Negative, Urine Urobilinogen Normal, Ur Leukocyte Esterase Negative, Urine RBC 0 SEEN, Urine WBC 0 SEEN, Ur Squamous Epith Cells 0-5 SEEN, Urine Bacteria 0 SEEN, Urine Mucus 0 SEEN 10/10/19 16:08: POC Glucose 116 H 10/10/19 23:02: POC Glucose 95 10/11/19 05:06: WBC 6.5, RBC 3.69 L, Hgb 11.0 L, Hct 33.9 L, MCV 91.9, MCH 29.8, MCHC 32.4, RDW Std Deviation 60.0 H, RDW Coeff of Jan 18.5 H, Plt Count 178, MPV 12.6 H, Immature Gran % (Auto) 0.500, Neut % (Auto) 54.4, Lymph % (Auto) 35.0, Pitt % (Auto) 3.8, Eos % (Auto) 5.5 H, Baso % (Auto) 0.8, Absolute Neuts (auto) 3.6, Absolute Lymphs (auto) 2.28, Nucleated RBC % 0 10/11/19 05:06: PT 13.6, INR 1.1, APTT 31.8 10/11/19 05:06: Sodium 138, Potassium 3.9, Chloride 106, Carbon Dioxide 26.0, Anion Gap 6, BUN 17, Creatinine 1.30 H, Estim Creat Clear Calc 44.19, Est GFR (MDRD) Af Amer 54 L, Est GFR (MDRD) Non-Af 44 L, BUN/Creatinine Ratio 13.1, Glucose 137 H, Calcium 8.3 L, Total Bilirubin 0.90, AST 26, ALT 24, Alkaline Phosphatase 120 H, Total Protein 6.2 L, Albumin 2.7 L, Globulin 3.5, Albumin/Globulin Ratio 0.8 L 10/11/19 11:32: POC Glucose 158 H 10/11/19 12:20: Troponin I < 0.015 Current Medications Acetaminophen (Tylenol) 650 mg PO Q6H PRN PRN PRN Reason: Pain Score 1-10/Temp > 100.7 F Albuterol Sulfate (Ventolin Aerosols) 2.5 mg INHALATION Q6HWA.RT [facility] Last Admin: 10/11/19 07:00 Dose: 2.5 mg Documented by: Aspirin (Ecotrin) 81 mg PO DAILY@0800 [facility] Last Admin: 10/11/19 11:40 Dose: 81 mg Documented by: Atorvastatin Calcium (Lipitor) 80 mg PO QHS [facility] Last Admin: 10/10/19 23:12 Dose: 80 mg Documented by: Baclofen (Lioresal) 10 mg PO QHS [facility] Last Admin: 10/10/19 23:13 Dose: 10 mg Documented by: Budesonide (Pulmicort Aerosol) 0.5 mg INHALATION Q12H.RT [facility] Last Admin: 10/11/19 07:00 Dose: 0.5 mg Documented by: Calcium Acetate (Phoslo Gel Cap) 667 mg PO BIDCM [facility] Last Admin: 10/11/19 11:40 Dose: 667 mg Documented by: Cholecalciferol (Vitamin D (25mcg)) [facility] Last Admin: 10/11/19 11:40 Dose: 2,000 unit Documented by: Dextrose (D50w Syringe) 0 gm IV X1 PRN; Protocol PRN Reason: Hypoglycemia Dicyclomine HCl (Bentyl) 10 mg PO ACHS [facility] Last Admin: 10/11/19 11:41 Dose: 10 mg Documented by: Folic Acid (Folic Acid) 1 mg PO DAILYCM [facility] Last Admin: 10/11/19 11:40 Dose: 1 mg Documented by: Glucagon () 1 mg IM .X1 PRN PRN Reason: Hypoglycemia Heparin Sodium (Porcine) (Heparin Na) 5,000 unit SC Q8 [facility] Last Admin: 10/10/19 23:33 Dose: Not Given Documented by: Hydromorphone HCl (Dilaudid Inj) 0.5 mg IV Q3H PRN PRN PRN Reason: pain 6-12/15 Last Admin: 10/11/19 11:52 Dose: 0.5 mg Documented by: Sodium Chloride () 250 mls @ 15 mls/hr IV .[id number] PRN PRN Reason: Saline Flush Sodium Chloride () 500 mls @ 0 mls/hr IV .Q0M [facility] Stop: 10/11/19 23:59 Last Infusion: 10/11/19 10:51 Dose: Infused Documented by: Insulin Glargine (Lantus (Bkc)) 100 units SC QHS [facility] Last Admin: 10/10/19 23:16 Dose: Not Given Documented by: Insulin Human Lispro (Humalog Kwikpen (Bkc)) 45 unit SC 0800,1200,1700 [facility] Last Admin: 10/11/19 11:50 Dose: Not Given Documented by: Insulin Human Lispro (Humalog Kwikpen (Bkc)) 0 unit SC ACHS [facility]; Protocol Last Admin: 10/11/19 11:49 Dose: Not Given Documented by: Isosorbide Dinitrate (Isordil) 30 mg PO BID [facility] Last Admin: 10/11/19 11:41 Dose: 30 mg Documented by: Magnesium Hydroxide (Milk Of Magnesia) 30 ml PO DAILY PRN PRN PRN Reason: Constipation Metoprolol Tartrate (Lopressor (Beta Isaac)) 25 mg PO BID [facility] Last Admin: 10/11/19 11:41 Dose: 25 mg Documented by: Metoprolol Tartrate (Lopressor (Beta Isaac)) 50 mg PO BID [facility] Last Admin: 10/11/19 11:40 Dose: 50 mg Documented by: Nitroglycerin (Nitrostat) 0.4 mg SUBLINGUAL Q5M PRN PRN Reason: CARDIAC/CHEST PAIN Ondansetron HCl (Zofran) 4 mg IV Q8H PRN PRN PRN Reason: NAUSEA/VOMITING Pantoprazole Sodium (Protonix) 40 mg PO X1 ONE Stop: 10/11/19 12:51 Pantoprazole Sodium (Protonix) 40 mg PO DAILY [facility] Pregabalin (Lyrica) 50 mg PO BID [facility] Last Admin: 10/11/19 11:42 Dose: 50 mg Documented by: Promethazine HCl (Phenergan Tablet) 25 mg PO Q6H PRN PRN PRN Reason: NAUSEA Sodium Chloride () 10 - 40 ml IV UD PRN PRN Reason: SALINE FLUSH Last Admin: 10/11/19 11:52 Dose: 10 ml Documented by: Tramadol HCl (Ultram) 50 mg PO BID PRN PRN Reason: Pain Score 6-10/10 Trazodone HCl (Desyrel) 50 mg PO QHS [facility] Last Admin: 10/10/19 23:13 Dose: 50 mg Documented by: Venlafaxine HCl (Effexor Xr) 150 mg PO DAILY [facility] Last Admin: 10/11/19 11:40 Dose: 150 mg Documented by: Assessment/Plan Patient seen and examined independently. Data reviewed. I agree with the above note by the nurse practitioner. 1. Abdominal pain: Etiology not clearly identified. CAT scan abdomen pelvis showed lesions in the liver concerning for metastatic disease, however, patient's symptoms are more patient was complaining of some right shoulder pain but seem to be more consistent with rib pain and not related with what it was going on her liver. Patient has had known gastroparesis but she states that her symptoms are not similar to her bouts of gastroparesis as she is not currently having any nausea or vomiting. Does not note increased output from her ostomy, denies any recent antibiotic use. So plan is to continue with supportive management with Bentyl, will add PPI to see if that helps. Check stool for bacteria as well as C. difficile. 2. Liver lesions: Concern is for malignancy. Biopsy performed and results are currently pending. Based on the results that patient may need referral to specialist, such as oncology. Inpatient E&M: [id number] [facility] L3
[2019-10-11] MEDS: Metoprolol Tartrate 50 MG Tablet PO ×2 (11:40→22:50)
[2019-10-11] MEDS: Folic Acid 1 MG Tablet PO (11:40)
[2019-10-11] MEDS: Venlafaxine XR 150 MG Capsule PO (11:40)
[2019-10-11] MEDS: Calcium Acetate 667 MG Capsule PO ×2 (11:40→16:44)
[2019-10-11] MEDS: Aspirin E.C. 81 MG Tablet PO (11:40)
[2019-10-11] MEDS: Metoprolol Tartrate 25 MG Tablet PO ×2 (11:41→22:50)
[2019-10-11] MEDS: Isosorbide DN 30 MG Tablet PO ×2 (11:41→22:49)
[2019-10-11] MEDS: Pregabalin 50 MG Capsule PO ×2 (11:42→22:50)
[2019-10-11] MEDS: Insulin Lispro 100 UNIT/ML INSULN.PEN SC ×2 (11:46→22:40)
[2019-10-11] MEDS: Insulin Lispro 100 UNIT/ML INSULN.PEN 45 UNIT SC (11:47)
[2019-10-11 12:11] LABS: Bedside Glucose 158 mg/dL (70-110)
--- NOTE | 2019-10-11 12:55 | CASEMGMT ---
SVETLANA RAINEY Face to Face with patient for initial transition planning/care coordination assessment. RN CM introduced self and role at [facility]. Patient lying in bed, alert and oriented. Patient willing to participate in assessment and is able to answer all questions appropriately. Care providers, pharmacy, and demographics verified. Patient wishes to discharge home, will follow for HHC if needed. Patient states she has no further needs or concerns at this time. CM to follow for discharge planning needs that may arise. PCP: lAcides Specialists: , endocrinology; [facility]; Keven, pulmonology Preferred Pharmacy: [facility] Insurance: [place] [facility] Prescription Benefit: yes Living Will/HPOA: yes significant other Azucena Borrero LNOK: significant other Living Arrangements: Patient lives alone in a 3rd floor apt with elevator. Patient states she is independent at home. Transportation: self, significant other DME/HHC: Patient states she has cane, walker, bipap, oxygen 2lpm at through [employer]. Patient denies previous HHC Disposition Plan: Patient to discharge home with family support and follow-up plans in place. Will monitor for HHC and portable oxygen. Amie IVAN, RN, CM
--- NOTE | 2019-10-11 14:50 | PCM.NTREPORT ---
Nutrition Therapy Report - History Nutrition Services has been consulted to:: Manage nutrient details of diet order Current diet / nutrition support order:: Clear Liquids - Anthropometric Measurements Height:: 5 ft 7 in Weight:: 89 kg Body Mass Index (BMI):: 30.7 - Relevant Labs Relevant Labs:: RBC 3.69 M/mm3 (4.2-5.4) L 10/11/19 05:06 Hgb 11.0 g/dL (12.0-15.0) L 10/11/19 05:06 Hct 33.9 % (37-47) L 10/11/19 05:06 RDW Std Deviation 60.0 fl (35.1-43.9) H 10/11/19 05:06 RDW Coeff of Jan 18.5 % (11.6-14.6) H 10/11/19 05:06 MPV 12.6 fl (6.2-12.0) H 10/11/19 05:06 Eos % (Auto) 5.5 % (0-5) H 10/11/19 05:06 BUN 23 mg/dL (7-18) H 10/10/19 11:20 Creatinine 1.30 mg/dL (0.55-1.02) H 10/11/19 05:06 Est GFR (MDRD) Af Amer 54 mL/min (>60) L 10/11/19 05:06 Est GFR (MDRD) Non-Af 44 mL/min (>60) L 10/11/19 05:06 Glucose 137 mg/dL (74-106) H 10/11/19 05:06 Calcium 8.3 mg/dL (8.5-10.1) L 10/11/19 05:06 Alkaline Phosphatase 120 U/L (45-117) H 10/11/19 05:06 Total Protein 6.2 g/dL (6.4-8.2) L 10/11/19 05:06 Albumin 2.7 g/dL (3.2-5.0) L 10/11/19 05:06 Globulin 4.3 g/dL (2.2-4.2) H 10/10/19 11:20 Albumin/Globulin Ratio 0.8 RATIO (0.9-2.4) L 10/11/19 05:06 - Assessment Food / Nutrition-Related History:: Pt currently on clear liquids due to abd pain/cramps--pending biopsy of liver lesions---Concern is for malignancy per progress notes. Pt reports decreased mony/intake station captain due to abd pain/discomfort. Pt appears to be with stable wt as per reported UBW~190 lbs but, per EMR wt about 6 months ago was ~215 lbs; calculated~8-10% wt loss with decreased intake is significant for malnutrition. -NFPA - Nutrition Diagnosis Problem / Etiology / Signs & Symptoms (PES):: Unintentional wt loss r/t possible malignancy, altered GI function and inadequate oral intake as evidenced by ~8-10% wt loss x past 6 months, decreased intake and clear liquid diet. Severe malnutrition of acute illness related to altered GI function as evidenced by wt loss~8-10% wt loss x 6 mos and inadequate oral intake. Evidence of Malnutrition Exists:: Yes Severe PCM:: Acute Illness - Nutrition Intervention Nutrition Prescription:: Estimated Nutrition Needs~[id number] kcal & ~90-100 gm protein/day - Food / Nutrient Delivery Interventions Summary of nutrition intervention:: Will offer ensure clear until diet advanced from clear liquids. Suggest advance diet as tolerated to carbohydrate-controlled/cardiac transitional diet. Offer Glucerna Shake as diet advanced from clear liquids. Nutrition education provided?: Yes - MNT Monitoring Further MNT monitoring and evaluation required?: Yes MNT Follow-up in:: 3-5 days
[2019-10-11] MEDS: Heparin Injection (Vial) 5,000 UNIT/ML VIAL 5000 UNIT SC ×2 (15:31→22:48)
[2019-10-11] MEDS: Pantoprazole Sodium 40 MG Tablet PO (15:31)
[2019-10-11 17:15] LABS: Bedside Glucose 190 mg/dL (70-110)
[2019-10-11] MEDS: Ensure Clear 120 ML Liquid PO (17:20)
[2019-10-11] MEDS: traZODone 50 MG Tablet PO (22:48)
[2019-10-11] MEDS: Baclofen 10 MG Tablet PO (22:49)
[2019-10-11] MEDS: Atorvastatin Calcium 80 MG Tablet PO (22:49)
[2019-10-11 23:41] LABS: Bedside Glucose 167 mg/dL (70-110)
[2019-10-12] VITALS (14 sets, daily range): BP systolic 124–162; BP diastolic 50–73; PULSE 61–82; RESP 16–18; TEMP 36.6–36.9; O2SAT 93–95
--- NOTE | 2019-10-12 04:17 | EKG12_ITS ---
Test Reason : Blood Pressure : / mmHG Vent. Rate : 062 BPM Atrial Rate : 062 BPM P-R Int : 176 ms QRS Dur : 096 ms QT Int : 428 ms P-R-T Axes : 007 -18 141 degrees QTc Int : 434 ms Normal sinus rhythm Left ventricular hypertrophy with repolarization abnormality Abnormal ECG When compared with ECG of 28-JUL-2019 10:17, T wave inversion more evident in Lateral leads Confirmed by CHLOÉ DOMINGUEZ, AL ([id number]), photograph editor MALIK HULL ([id number]) on 10/18/2019 9:33:44 AM Referred By: Confirmed By:AL LUEVANO MD
[2019-10-12 05:41] LABS: Hematocrit 32.4 % (37-47); Hemoglobin 10.5 g/dL (12.0-15.0); Mean Corp Hgb Conc 32.4 g/dL (32-36); Mean Corpuscular Hgb 29.7 pg (27.0-32.0); Mean Corpuscular Volume 91.5 fL (81-99); Mean Platelet Vol. 12.4 fl (6.2-12.0); Platelet Count 159 K/mm3 (150-450); RBC Distribution Width CV 17.7 % (11.6-14.6); RBC Distribution Width SD 58.1 fl (35.1-43.9); Red Blood Count 3.54 M/mm3 (4.2-5.4); White Blood Count 6.6 K/mm3 (4.4-11.0)
[2019-10-12 05:57] LABS: Anion Gap 5 (5-15); BUN 12 mg/dL (7-18); BUN/Creat Ratio 10.6 RATIO (10-20); Calcium,Total 8.4 mg/dL (8.5-10.1); Chloride 108 mmol/L (98-107); Creatinine, Serum 1.13 mg/dL (0.55-1.02); EST Glomerular Filtration Rate 52 mL/min (>60); Est Glom Filt Rate - Afr Amer 63 mL/min (>60); Estimated Creatinine Clearance 50.84 ml/min; Glucose 143 mg/dL (74-106); Potassium 3.9 mmol/L (3.5-5.1); Sodium Level 139 mmol/L (136-145)
[2019-10-12] MEDS: Budesonide Respules 0.5 MG/2 ML AMPUL.NEB. INHALATION ×2 (06:57→20:06)
[2019-10-12] MEDS: Albuterol 2.5 MG/3 ML VIAL.NEB. INHALATION ×3 (06:57→20:06)
[2019-10-12] MEDS: Aspirin E.C. 81 MG Tablet PO (07:07)
[2019-10-12 07:21] LABS: Bedside Glucose 147 mg/dL (70-110)
[2019-10-12] MEDS: 0.9% Saline Lock 10 ML Syringe IV ×3 (07:59→16:47)
[2019-10-12] MEDS: Metoclopramide 10 MG/2 ML Vial 2.5 MG IV (11:46)
[2019-10-12] MEDS: Calcium Acetate 667 MG Capsule PO ×2 (11:47→16:53)
[2019-10-12] MEDS: Dicyclomine 10 MG Capsule PO ×3 (11:47→21:45)
[2019-10-12] MEDS: Venlafaxine XR 150 MG Capsule PO (11:47)
[2019-10-12] MEDS: Folic Acid 1 MG Tablet PO (11:48)
[2019-10-12] MEDS: Pregabalin 50 MG Capsule PO ×2 (11:48→21:57)
[2019-10-12] MEDS: Pantoprazole Sodium 40 MG Tablet PO (11:48)
[2019-10-12] MEDS: Insulin Lispro 100 UNIT/ML INSULN.PEN 45 UNIT SC ×2 (11:56→16:50)
[2019-10-12] MEDS: Insulin Lispro 100 UNIT/ML INSULN.PEN SC ×3 (11:58→21:48)
[2019-10-12] MEDS: Ensure Clear 120 ML Liquid PO ×2 (11:59→16:52)
[2019-10-12 12:45] LABS: Bedside Glucose 286 mg/dL (70-110)
--- NOTE | 2019-10-12 13:29 | RAD_ITS ---
STUDY: SMALL BOWEL FOLLOW-THROUGH EXAMINATION. REASON FOR EXAM: Female, 59 years old. History of gastroparesis -- all over abd pain x 2 1/2 weeks -- constipation/diarrhea -- ileostomy x 35 years -- part of small bowel removed 2007 TECHNIQUE: The patient ingested barium. A small bowel follow-through examination was performed. COMPARISON: None. FINDINGS: An ileostomy seen in the left lower quadrant. The small bowel transit is normal. There is no evidence of intrinsic or extrinsic small bowel disease. RAD/Small Bowel Series Only IMPRESSION: Status post ostomy in the left lower quadrant. Small bowel examination is unremarkable. Electronically Signed: Eric Spencer, at 11:14 EDT , Service support ,
--- NOTE | 2019-10-12 13:42 | PN_ITS ---
<Tomas Snu - Last Filed: 10/12/19 13:42> Reason for Visit: Abd cramping pain Subjective: Pt with ongoing abdominal cramping, though it is less severe than it has been. She has no nausea or vomiting. She noticed the output from her ostomy has been more watery, tho she feels that it is actually less in quantity. She notes a greenish color to it. No blood. No chest pain today. Her CP was described as a heaviness that was worth with exertion and associated SOB. No issues during stress test. Vitals/I&O's: Vital Signs Temp Pulse Resp BP Pulse Ox 98 F 82 18 160/68 H 94 10/12/19 08:05 10/12/19 13:29 10/12/19 13:29 10/12/19 12:01 10/12/19 08:05 Oxygen Flow Rate (L/min) [5] 2 Oxygen Flow Rate (L/min) [4] 2 Oxygen Flow Rate (L/min) [3] 2 Oxygen Flow Rate (L/min) [2] 2 Oxygen Flow Rate (L/min) [1 ( 2 Initial Baseline)] Oxygen Flow Rate (L/min) 2 Oxygen Delivery Method [5] Nasal Cannula Oxygen Delivery Method [4] Nasal Cannula Oxygen Delivery Method [3] Nasal Cannula Oxygen Delivery Method [2] Nasal Cannula Oxygen Delivery Method [1 ( Nasal Cannula Initial Baseline)] Oxygen Delivery Method Room Air Weight: 196 lb 3.382 oz Body Mass Index (BMI) 30.7 Finger Stick Blood Glucose 463 Orthostatic Vital Signs Start: 10/12/19 12:01 Freq: q24h Status: Active Protocol: Activity Type Activity Date Activity User E-Sign Co-Sign Detail Recorded Client Recorded Date Recorded By Document 10/12/19 12:01 BRENDA [id number] 10/12/19 12:04 BRENDA 10/12/19 12:01 Orthostatic Vitals Standing -Blood Pressure (90/60-120/80) 124/59 H -Extremity Use Right Arm -Pulse Rate (60-100) 78 Sitting -Blood Pressure (90/60-120/80) 146/73 H -Extremity Use Right Arm -Pulse Rate (60-100) 74 Lying -Blood Pressure (90/60-120/80) 160/68 H -Extremity Use Right Arm -Pulse Rate (60-100) 74 Intake and Output for Last 24 Hours 10/10/19 10/11/19 10/12/19 23:59 23:59 23:59 Intake Total 1200 / 1440 2735 / 2735 0 / 0 Output Total 600 / 600 Balance 1200 / 1440 2135 / 2135 0 / 0 General: Alert, Oriented x3, Cooperative HEENT: Atraumatic, PERRLA, EOMI, Normocephalic Neck: Supple, No JVD, Negative Carotid Bruits Lungs: Clear to auscultation, Normal air movement Cardiovascular: Regular rate, No murmurs Abdomen: Bowel Sounds Present, Soft, Non Tender Extremities: No edema, Capillary Refill Less than 3 Seconds Skin: No rashes, No breakdown Musculoskeletal: No Tenderness to Palpation of Joints or Extremities Neurological: Cranial nerves II-XII grossly intact Psych/Mental Status: Normal Affect, Appropriate, Alert and oriented to time, place, person, mood and affect Microbiology Past 72 Hours 10/11/19 22:50 Stool C. difficile DNA Amplification - Final 10/11/19 12:00 Stool Enteric Bacteriology - Final 10/11/19 12:00 Stool Stool Lactoferrin - Final Laboratory Results 10/11/19 15:13: Troponin I < 0.015 10/11/19 16:33: POC Glucose 190 H 10/11/19 18:08: Troponin I < 0.015 10/11/19 22:38: POC Glucose 167 H 10/12/19 05:20: WBC 6.6, RBC 3.54 L, Hgb 10.5 L, Hct 32.4 L, MCV 91.5, MCH 29.7, MCHC 32.4, RDW Std Deviation 58.1 H, RDW Coeff of Jan 17.7 H, Plt Count 159, MPV 12.4 H 10/12/19 05:20: Sodium 139, Potassium 3.9, Chloride 108 H, Carbon Dioxide 26.0, Anion Gap 5, BUN 12, Creatinine 1.13 H, Estim Creat Clear Calc 50.84, Est GFR (MDRD) Af Amer 63, Est GFR (MDRD) Non-Af 52 L, BUN/Creatinine Ratio 10.6, Glucose 143 H, Calcium 8.4 L 10/12/19 07:06: POC Glucose 147 H 10/12/19 11:55: POC Glucose 286 H Current Medications Acetaminophen (Tylenol) 650 mg PO Q6H PRN PRN PRN Reason: Pain Score 1-10/Temp > 100.7 F Albuterol Sulfate (Ventolin Aerosols) 2.5 mg INHALATION Q6HWA.RT [facility] Last Admin: 10/12/19 13:29 Dose: 2.5 mg Documented by: Aspirin (Ecotrin) 81 mg PO DAILY@0800 [facility] Last Admin: 10/12/19 07:07 Dose: 81 mg Documented by: Atorvastatin Calcium (Lipitor) 80 mg PO QHS [facility] Last Admin: 10/11/19 22:49 Dose: 80 mg Documented by: Baclofen (Lioresal) 10 mg PO QHS [facility] Last Admin: 10/11/19 22:49 Dose: 10 mg Documented by: Budesonide (Pulmicort Aerosol) 0.5 mg INHALATION Q12H.RT [facility] Last Admin: 10/12/19 06:57 Dose: 0.5 mg Documented by: Calcium Acet[facility] ([facility] Cap) [facility] Last Admin: 10/12/19 11:47 Dose: 667 mg Documented by: Cholecalciferol (Vitamin D (25mcg)) [facility] Last Admin: 10/12/19 11:47 Dose: 2,000 unit Documented by: Dextrose (D50w Syringe) 0 gm IV X1 PRN; Protocol PRN Reason: Hypoglycemia Dicyclomine HCl (Bentyl) 10 mg PO ACHS [facility] Last Admin: 10/12/19 11:47 Dose: 10 mg Documented by: Folic Acid (Folic Acid) [facility] Last Admin: 10/12/19 11:48 Dose: 1 mg Documented by: Glucagon () 1 mg IM .X1 PRN PRN Reason: Hypoglycemia Heparin Sodium (Porcine) (Heparin Na) 5,000 unit SC Q8 [facility] Last Admin: 10/12/19 03:15 Dose: Not Given Documented by: Hydromorphone HCl (Dilaudid Inj) 0.5 mg IV Q3H PRN PRN PRN Reason: pain 6-10/10 Last Admin: 10/11/19 23:12 Dose: 0.5 mg Documented by: Sodium Chloride () 250 mls @ 15 mls/hr IV .[id number] PRN PRN Reason: Saline Flush Insulin Glargine (Lantus (Bkc)) 100 units SC QHS [facility] Last Admin: 10/11/19 22:41 Dose: 100 units Documented by: Insulin Human Lispro (Humalog Kwikpen (Bkc)) 45 unit SC 0800,1200,1700 [facility] Last Admin: 10/12/19 11:56 Dose: 45 units Documented by: Insulin Human Lispro (Humalog Kwikpen (Bkc)) 0 unit SC ACHS [facility]; Protocol Last Admin: 10/12/19 11:58 Dose: 2 units Documented by: Isosorbide Dinitrate (Isordil) 30 mg PO BID [facility] Last Admin: 10/11/19 22:49 Dose: 30 mg Documented by: Magnesium Hydroxide (Milk Of Magnesia) 30 ml PO DAILY PRN PRN PRN Reason: Constipation Metoprolol Tartrate (Lopressor (Beta Isaac)) 25 mg PO BID [facility] Last Admin: 10/11/19 22:50 Dose: 25 mg Documented by: Metoprolol Tartrate (Lopressor (Beta Isaac)) 50 mg PO BID [facility] Last Admin: 10/11/19 22:50 Dose: 50 mg Documented by: Nitroglycerin (Nitrostat) 0.4 mg SUBLINGUAL Q5M PRN PRN Reason: CARDIAC/CHEST PAIN Nutritional Formula (Lactose Free) (Ensure Clear) 120 ml PO TIDCM [facility] Last Admin: 10/12/19 11:59 Dose: 120 ml Documented by: Ondansetron HCl (Zofran) 4 mg IV Q8H PRN PRN PRN Reason: NAUSEA/VOMITING Pantoprazole Sodium (Protonix) 40 mg PO DAILY [facility] Last Admin: 10/12/19 11:48 Dose: 40 mg Documented by: Pregabalin (Lyrica) 50 mg PO BID [facility] Last Admin: 10/12/19 11:48 Dose: 50 mg Documented by: Promethazine HCl (Phenergan Tablet) 25 mg PO Q6H PRN PRN PRN Reason: NAUSEA Sodium Chloride () 10 - 40 ml IV UD PRN PRN Reason: SALINE FLUSH Last Admin: 10/12/19 11:53 Dose: 10 ml Documented by: Tramadol HCl (Ultram) 50 mg PO BID PRN PRN Reason: Pain Score 6-10/10 Trazodone HCl (Desyrel) 50 mg PO QHS [facility] Last Admin: 10/11/19 22:48 Dose: 50 mg Documented by: Venlafaxine HCl (Effexor Xr) 150 mg PO DAILY [facility] Last Admin: 10/12/19 11:47 Dose: 150 mg Documented by: STROKE Vital Signs/Narrative: Vital Signs Pulse Pulse Pulse Pulse Resp BP BP 10/12/19 13:29 82 18 10/12/19 12:01 74 74 78 160/68 H 146/73 H BP 10/12/19 13:29 10/12/19 12:01 124/59 H Medical Necessity - Tobacco Use Smoking Status: Former smoker Tobacco Use: Non-smoker Assessment/Plan All Active Problems (Last Reviewed 09/11/19 @ 14:[address] Heath Dewitt MD) Pancreatitis (Resolved) H/O coronary artery bypass surgery (Resolved 05/18/12) History of coronary artery stent placement (Resolved 01/12/18) Abdominal pain (Resolved) Acute pancreatitis (Resolved) COPD exacerbation (Resolved) Chest pain (Resolved) Chest pain (Resolved) Hallucinations (Resolved) Hypokalemia (Resolved) Irritant dermatitis (Resolved) Lumbar back pain (Resolved) Multiple falls (Resolved) Sepsis (Resolved) Shortness of breath (Resolved) Surgical wound dehiscence (Resolved) 1. Chest pain, presyncope, Hx CAD - stress pending. EKG neg. Trop negx3. + orthostatic vitals. add deisy hoses. Continue asa/plavix, isordil, 2. Abdominal cramping - check small bowel follow through. Trial reglan. Possibly due to diabetic gastroparesis. Pt has trialed E-mycin in the past but it made her nauseous. States she tried reglan once but thought it made her nauseous, willing to trial IV reglan. Enteric panel and C diff negative. No fever/leukocytosis. Pt following with Dr. Hernandez however as she has been unable to make timely appointments she plans to change to Dr. Moeller at [facility]. 3. Liver mass - biopsy pending 4. Psoriasis - started methotrexate about 2 months prior and has had good results with her skin. She had the dose increased 2 weeks ago and it caused more upset stomach so she was told to go back down to her previous dose. 5. DMt2 uncontrolled with hyperglycemia - continue lantus but change to BID dosing, continue mealtime insulin + SSI. A1C 9.1 on 09/11/19 6. CKDIII - pt and family interested in referral to [place], complaining that their PCP will not refer until she has CKDIV. DVT ppx: heparin This patient was seen by Tomas Sun PA-C under the supervision of Dr. Chandler. <Shiva Chandler - Last Filed: 10/12/19 14:23> Subjective: Still with intermittent abdominal pain. Alleviated by sitting on the toilet and changing position. Sometimes it is associated with increase air or stool out put in ostomy, other times not. Vitals/I&O's: Vital Signs Temp Pulse Resp BP Pulse Ox 36.6 C 82 18 160/68 H 94 10/12/19 08:05 10/12/19 13:29 10/12/19 13:29 10/12/19 12:01 10/12/19 08:05 Oxygen Flow Rate (L/min) [5] 2 Oxygen Flow Rate (L/min) [4] 2 Oxygen Flow Rate (L/min) [3] 2 Oxygen Flow Rate (L/min) [2] 2 Oxygen Flow Rate (L/min) [1 ( 2 Initial Baseline)] Oxygen Flow Rate (L/min) 2 Oxygen Delivery Method [5] Nasal Cannula Oxygen Delivery Method [4] Nasal Cannula Oxygen Delivery Method [3] Nasal Cannula Oxygen Delivery Method [2] Nasal Cannula Oxygen Delivery Method [1 ( Nasal Cannula Initial Baseline)] Oxygen Delivery Method Room Air Weight: 89 kg Body Mass Index (BMI) 30.7 Finger Stick Blood Glucose 463 Orthostatic Vital Signs Start: 10/12/19 12:01 Freq: q24h Status: Active Protocol: Activity Type Activity Date Activity User E-Sign Co-Sign Detail Recorded Client Recorded Date Recorded By Document 10/12/19 12:01 BRENDA [id number] 10/12/19 12:04 BRENDA 10/12/19 12:01 Orthostatic Vitals Standing -Blood Pressure (90/60-120/80) 124/59 H -Extremity Use Right Arm -Pulse Rate (60-100) 78 Sitting -Blood Pressure (90/60-120/80) 146/73 H -Extremity Use Right Arm -Pulse Rate (60-100) 74 Lying -Blood Pressure (90/60-120/80) 160/68 H -Extremity Use Right Arm -Pulse Rate (60-100) 74 Intake and Output for Last 24 Hours 10/10/19 10/11/19 10/12/19 23:59 23:59 23:59 Intake Total 1200 / 1440 2735 / 2735 0 / 0 Output Total 600 / 600 Balance 1200 / 1440 2135 / 2135 0 / 0 General: Alert, Cooperative Abdomen: Distended, Tender Microbiology Past 72 Hours 10/11/19 22:50 Stool C. difficile DNA Amplification - Final 10/11/19 12:00 Stool Enteric Bacteriology - Final 10/11/19 12:00 Stool Stool Lactoferrin - Final Laboratory Results 10/11/19 15:13: Troponin I < 0.015 10/11/19 16:33: POC Glucose 190 H 10/11/19 18:08: Troponin I < 0.015 10/11/19 22:38: POC Glucose 167 H 10/12/19 05:20: WBC 6.6, RBC 3.54 L, Hgb 10.5 L, Hct 32.4 L, MCV 91.5, MCH 29.7, MCHC 32.4, RDW Std Deviation 58.1 H, RDW Coeff of Jan 17.7 H, Plt Count 159, MPV 12.4 H 10/12/19 05:20: Sodium 139, Potassium 3.9, Chloride 108 H, Carbon Dioxide 26.0, Anion Gap 5, BUN 12, Creatinine 1.13 H, Estim Creat Clear Calc 50.84, Est GFR (MDRD) Af Amer 63, Est GFR (MDRD) Non-Af 52 L, BUN/Creatinine Ratio 10.6, Glucose 143 H, Calcium 8.4 L 10/12/19 07:06: POC Glucose 147 H 10/12/19 11:55: POC Glucose 286 H Current Medications Acetaminophen (Tylenol) 650 mg PO Q6H PRN PRN PRN Reason: Pain Score 1-10/Temp > 100.7 F Albuterol Sulfate (Ventolin Aerosols) 2.5 mg INHALATION Q6HWA.RT [facility] Last Admin: 10/12/19 13:29 Dose: 2.5 mg Documented by: Aspirin (Ecotrin) 81 mg PO DAILY@0800 [facility] Last Admin: 10/12/19 07:07 Dose: 81 mg Documented by: Atorvastatin Calcium (Lipitor) 80 mg PO QHS [facility] Last Admin: 10/11/19 22:49 Dose: 80 mg Documented by: Baclofen (Lioresal) 10 mg PO QHS [facility] Last Admin: 10/11/19 22:49 Dose: 10 mg Documented by: Budesonide (Pulmicort Aerosol) 0.5 mg INHALATION Q12H.RT [facility] Last Admin: 10/12/19 06:57 Dose: 0.5 mg Documented by: Calcium Acetate (Phoslo Gel Cap) [facility] Last Admin: 10/12/19 11:47 Dose: 667 mg Documented by: Cholecalciferol (Vitamin D (25mcg)) 2,[facility] Last Admin: 10/12/19 11:47 Dose: 2,000 unit Documented by: Dextrose (D50w Syringe) 0 gm IV X1 PRN; Protocol PRN Reason: Hypoglycemia Dicyclomine HCl (Bentyl) 10 [facility] Last Admin: 10/12/19 11:47 Dose: 10 mg Documented by: Folic Acid (Folic Acid) [facility] Last Admin: 10/12/19 11:48 Dose: 1 mg Documented by: Glucagon () 1 mg IM .X1 PRN PRN Reason: Hypoglycemia Heparin Sodium (Porcine) (Heparin Na) 5,000 unit SC Q8 [facility] Last Admin: 10/12/19 03:15 Dose: Not Given Documented by: Hydromorphone HCl (Dilaudid Inj) 0.5 mg IV Q3H PRN PRN PRN Reason: pain 6-10/10 Last Admin: 10/11/19 23:12 Dose: 0.5 mg Documented by: Sodium Chloride () 250 mls @ 15 mls/hr IV .[id number] PRN PRN Reason: Saline Flush Insulin Glargine (Lantus (Bkc)) 50 units SC BID [facility] Insulin Human Lispro (Humalog Kwikpen (Bkc)) 45 unit SC 0800,1200,1700 [facility] Last Admin: 10/12/19 11:56 Dose: 45 units Documented by: Insulin Human Lispro (Humalog Kwikpen (Bkc)) 0 unit SC [facility]; Protocol Last Admin: 10/12/19 11:58 Dose: 2 units Documented by: Isosorbide Dinitrate (Isordil) 30 mg PO BID [facility] Last Admin: 10/11/19 22:49 Dose: 30 mg Documented by: Magnesium Hydroxide (Milk Of Magnesia) 30 ml PO DAILY PRN PRN PRN Reason: Constipation Metoprolol Tartrate (Lopressor (Beta Isaac)) 25 mg PO BID [facility] Last Admin: 10/11/19 22:50 Dose: 25 mg Documented by: Metoprolol Tartrate (Lopressor (Beta Isaac)) 50 mg PO BID [facility] Last Admin: 10/11/19 22:50 Dose: 50 mg Documented by: Nitroglycerin (Nitrostat) 0.4 mg SUBLINGUAL Q5M PRN PRN Reason: CARDIAC/CHEST PAIN Nutritional Formula (Lactose Free) (Ensure Clear) 120 ml PO TIDCM [facility] Last Admin: 10/12/19 11:59 Dose: 120 ml Documented by: Ondansetron HCl (Zofran) 4 mg IV Q8H PRN PRN PRN Reason: NAUSEA/VOMITING Pantoprazole Sodium (Protonix) 40 mg PO DAILY [facility] Last Admin: 10/12/19 11:48 Dose: 40 mg Documented by: Pregabalin (Lyrica) 50 mg PO BID [facility] Last Admin: 10/12/19 11:48 Dose: 50 mg Documented by: Promethazine HCl (Phenergan Tablet) 25 mg PO Q6H PRN PRN PRN Reason: NAUSEA Sodium Chloride () 10 - 40 ml IV UD PRN PRN Reason: SALINE FLUSH Last Admin: 10/12/19 11:53 Dose: 10 ml Documented by: Tramadol HCl (Ultram) 50 mg PO BID PRN PRN Reason: Pain Score 6-10/10 Trazodone HCl (Desyrel) 50 mg PO QHS [facility] Last Admin: 10/11/19 22:48 Dose: 50 mg Documented by: Venlafaxine HCl (Effexor Xr) 150 mg PO DAILY [facility] Last Admin: 10/12/19 11:47 Dose: 150 mg Documented by: STROKE Vital Signs/Narrative: Vital Signs Pulse Pulse Pulse Pulse Resp BP BP 10/12/19 13:29 82 18 10/12/19 12:01 74 74 78 160/68 H 146/73 H BP 10/12/19 13:29 10/12/19 12:01 124/59 H Assessment/Plan Patient seen and examined independently. Data reviewed. I agree with the above note by the physician assistant professor of biochemistry. 1. Abdominal pain: Etiology not clearly identified. CAT scan abdomen pelvis showed lesions in the liver concerning for metastatic disease, however, patient's symptoms are more patient was complaining of some right shoulder pain but seem to be more consistent with rib pain and not related with what it was going on her liver. Patient has had known gastroparesis but she states that her symptoms are not similar to her bouts of gastroparesis as she is not currently having any nausea or vomiting. Does not note increased output from her ostomy, denies any recent antibiotic use. So plan is to continue with supportive management with Bentyl, will add PPI to see if that helps. Cdiff, stool culture negative. Check SBFT as it sounds more of anatomical/mechanical process contributing to this. Stress test negative, so, this is not a cardiac equivalent. 2. Liver lesions: Concern is for malignancy. Biopsy performed and results are currently pending. Based on the results that patient may need referral to specialist, such as oncology. EDWARD patient's partner at bedside. Inpatient E&M: [id number] Subs Hosp L2
--- NOTE | 2019-10-12 13:48 | STRESSREP ---
Stress Test Report Date: 10/12/2019 Procedure: Pharmacologic stress nuclear imaging study Indications: Chest pain Consent: Per the patient Procedure: The patient underwent pharmacologic (Regadenoson) evaluation with a peak heart rate of 88 beats per minute (55 %predicted maximal heart rate) and a peak blood pressure of 148/78 mmHg. The baseline ECG demonstrated normal sinus rhythm, nonspecific ST-T changes. EKG during lexiscan infusion revealed no significant ischemic changes. EKG post infusion revealed no significant ischemic changes [There were no cardiac dysrhythmias pretest, during pharmacologic infusion, or recovery]. Patient had chest discomfort after Lexiscan infusion which could be a nonspecific response. The examination was discontinued secondary to completion of protocol. Impression: 1. Lexiscan stress test test is negative for Lexiscan infusion induced EKG changes of ischemia. 2. Lexiscan stress test test is positive for Lexiscan infusion induced chest pain which is likely a nonspecific response 3. Results of the nuclear portion of the test is as below Myocardial perfusion imaging study: Technique: The patient was injected with 12 millicuries of technetium 99m Cardiolite and subsequently rest SPECT Cardiolite nuclear imaging was obtained in the horizontal long, vertical long, and short axis views. The patient underwent pharmacologic (Regadenoson) evaluation. Please see above for details. The patient was injected with 34.5 millicuries of technetium 99m Cardiolite and subsequently stress SPECT Cardiolite nuclear imaging was obtained in the horizontal long, vertical long, and short axis views. A gated Cardiolite study at peak stress was obtained. Interpretation: Rest and stress SPECT Cardiolite nuclear imaging status post realignment, normalization, and attenuation correction demonstrate no significant fixed or reversible defect suggestive of significant ischemia or infarction. Gated images reveal no significant regional wall motion abnormalities. The reported LVEF is 64 %. Impression: 1. There is no evidence of significant ischemia or infarction. 2. Estimated ejection fraction is 64%. This note was generated with [employer] software. It may contain incorrect words, spelling, and punctuation that were not noted in checking the note before signing.
[2019-10-12] MEDS: traMADol 50 MG Tablet PO (14:32)
[2019-10-12] MEDS: Acetaminophen 325 MG Tablet 650 MG PO (14:32)
[2019-10-12] MEDS: Metoprolol Tartrate 25 MG Tablet PO ×2 (14:33→21:47)
[2019-10-12] MEDS: Isosorbide DN 30 MG Tablet PO ×2 (14:33→21:45)
[2019-10-12] MEDS: Metoprolol Tartrate 50 MG Tablet PO ×2 (14:33→21:46)
[2019-10-12] MEDS: Heparin Injection (Vial) 5,000 UNIT/ML VIAL 5000 UNIT SC ×2 (15:10→21:45)
[2019-10-12] MEDS: HYDROmorphone 0.5 MG/0.5 ML SYRINGE IV (16:47)
[2019-10-12 16:51] LABS: Bedside Glucose 214 mg/dL (70-110)
[2019-10-12] MEDS: Baclofen 10 MG Tablet PO (21:45)
[2019-10-12] MEDS: traZODone 50 MG Tablet PO (21:45)
[2019-10-12] MEDS: Atorvastatin Calcium 80 MG Tablet PO (21:46)
[2019-10-12 22:16] LABS: Bedside Glucose 242 mg/dL (70-110)
[2019-10-13] VITALS (7 sets, daily range): BP systolic 124–157; BP diastolic 49–51; PULSE 65–71; RESP 15–18; TEMP 36.7–36.8; O2SAT 90–94
--- NOTE | 2019-10-13 05:55 | EKG12_ITS ---
Test Reason : AM EKG Blood Pressure : / mmHG Vent. Rate : 063 BPM Atrial Rate : 063 BPM P-R Int : 178 ms QRS Dur : 096 ms QT Int : 408 ms P-R-T Axes : 034 -15 133 degrees QTc Int : 417 ms Normal sinus rhythm ST & T wave abnormality, consider anterolateral ischemia Abnormal ECG When compared with ECG of 12-OCT-2019 04:17, MANUAL COMPARISON REQUIRED, DATA IS UNCONFIRMED Confirmed by CHLOÉ DOMINGUEZ, AL ([id number]), slot editor ISABELLA BUTLER ([id number]) on 10/17/2019 10:50:12 AM Referred By: DR JONES Confirmed By:AL LUEVANO MD
[2019-10-13] MEDS: Heparin Injection (Vial) 5,000 UNIT/ML VIAL 5000 UNIT SC (06:29)
[2019-10-13 06:36] LABS: Absolute Lymphocyte Count 1.92 X10^3/uL (0.83-4.51); Absolute Neutrophil Count 4.6 X10^3/uL (2.0-7.7); Basophil# 0.06 X10^3/uL; Basophil% 0.8 % (0-1); Eosinophil# 0.37 X10^3/uL; Hematocrit 31.9 % (37-47); Hemoglobin 10.2 g/dL (12.0-15.0); Lymphocyte # 1.92 X10^3/ul (4.0); Lymphocyte % 25.9 % (19-41); Mean Corpuscular Hgb 29.3 pg (27.0-32.0); Mean Corpuscular Volume 91.7 fL (81-99); Mean Platelet Vol. 12.9 fl (6.2-12.0); Monocyte# 0.34 X10^3/uL; Monocyte% 4.6 % (0-10); NRBC Flagged by Analyzer 0 % (0-5); Neutrophil # 4.61 X10^3/uL (2.7-7.7); Neutrophil % 62.3 % (47-70); Platelet Count 155 K/mm3 (150-450); RBC Distribution Width SD 58.4 fl (35.1-43.9); Red Blood Count 3.48 M/mm3 (4.2-5.4); White Blood Count 7.4 K/mm3 (4.4-11.0)
[2019-10-13] MEDS: Albuterol 2.5 MG/3 ML VIAL.NEB. INHALATION (06:54)
[2019-10-13] MEDS: Budesonide Respules 0.5 MG/2 ML AMPUL.NEB. INHALATION (06:54)
[2019-10-13 06:55] LABS: ALB/GLOB Ratio 0.7 RATIO (0.9-2.4); AST(SGOT) 15 U/L (15-37); Alanine Aminotransfer ALT/SGPT 19 U/L (13-56); Albumin, Serum 2.7 g/dL (3.2-5.0); Alkaline Phosphatase 129 U/L (45-117); Anion Gap 6 (5-15); BUN 13 mg/dL (7-18); BUN/Creat Ratio 10.3 RATIO (10-20); Calcium,Total 8.5 mg/dL (8.5-10.1); Chloride 106 mmol/L (98-107); Creatinine, Serum 1.26 mg/dL (0.55-1.02); EST Glomerular Filtration Rate 46 mL/min (>60); Est Glom Filt Rate - Afr Amer 56 mL/min (>60); Globulin 3.8 g/dL (2.2-4.2); Glucose 218 mg/dL (74-106); Potassium 4.1 mmol/L (3.5-5.1); Protein, Total 6.5 g/dL (6.4-8.2); Sodium Level 139 mmol/L (136-145)
[2019-10-13] MEDS: Pregabalin 50 MG Capsule PO (10:43)
[2019-10-13] MEDS: Pantoprazole Sodium 40 MG Tablet PO (10:44)
[2019-10-13] MEDS: Dicyclomine 10 MG Capsule PO ×2 (10:44→13:10)
--- NOTE | 2019-10-13 10:50 | NURSING ---
[facility] late d/t pt off floor for small bowel series.
--- NOTE | 2019-10-13 11:41 | PCM.PN.HOSP ---
<Tomas Sun - Last Filed: 10/13/19 11:41> Reason for Visit: abd cramps Subjective: Pt had resolution of abd pain after reglan yesterday. She had been tolerating a diet with no issue. She has decresed output from her iliostomy however she notes it is now less watery and more formed. This AM she had a GI follow thru and she became nauseous and had abdominal cramping resume when she drank the contrast. She has no fever/chills. No LH/dizziness. no chest pain or SOB. Vitals/I&O's: Vital Signs Temp Pulse Resp BP Pulse Ox 98.2 F 69 15 127/49 H 93 10/13/19 10:50 10/13/19 10:50 10/13/19 10:50 10/13/19 10:50 10/13/19 10:50 Oxygen Flow Rate (L/min) [5] 2 Oxygen Flow Rate (L/min) [4] 2 Oxygen Flow Rate (L/min) [3] 2 Oxygen Flow Rate (L/min) [2] 2 Oxygen Flow Rate (L/min) [1 ( 2 Initial Baseline)] Oxygen Flow Rate (L/min) 2 Oxygen Delivery Method [5] Nasal Cannula Oxygen Delivery Method [4] Nasal Cannula Oxygen Delivery Method [3] Nasal Cannula Oxygen Delivery Method [2] Nasal Cannula Oxygen Delivery Method [1 ( Nasal Cannula Initial Baseline)] Oxygen Delivery Method Room Air Weight: 196 lb 3.382 oz Body Mass Index (BMI) 30.7 Finger Stick Blood Glucose 463 Orthostatic Vital Signs Start: 10/12/19 12:01 Freq: q24h Status: Active Protocol: Activity Type Activity Date Activity User E-Sign Co-Sign Detail Recorded Client Recorded Date Recorded By Document 10/12/19 12:01 BRENDA [id number] 10/12/19 12:04 BRENDA 10/12/19 12:01 Orthostatic Vitals Standing -Blood Pressure (90/60-120/80) 124/59 H -Extremity Use Right Arm -Pulse Rate (60-100) 78 Sitting -Blood Pressure (90/60-120/80) 146/73 H -Extremity Use Right Arm -Pulse Rate (60-100) 74 Lying -Blood Pressure (90/60-120/80) 160/68 H -Extremity Use Right Arm -Pulse Rate (60-100) 74 Intake and Output for Last 24 Hours 10/11/19 10/12/19 10/13/19 23:59 23:59 23:59 Intake Total 2735 / 2735 1120 / 1120 Output Total 600 / 600 Balance 2135 / 2135 1120 / 1120 General: Alert, Oriented x3, Cooperative HEENT: Atraumatic, PERRLA, EOMI, Normocephalic Neck: Supple, No JVD, Negative Carotid Bruits Lungs: Clear to auscultation, Normal air movement Cardiovascular: Regular rate, No murmurs Abdomen: Bowel Sounds Present, Soft, Tender - diffuse, however worse in the RLQ/RUQ Extremities: No edema, Capillary Refill Less than 3 Seconds Skin: No rashes, No breakdown Musculoskeletal: No Tenderness to Palpation of Joints or Extremities Neurological: Cranial nerves II-XII grossly intact Psych/Mental Status: Normal Affect, Appropriate, Alert and oriented to time, place, person, mood and affect Microbiology Past 72 Hours 10/11/19 22:50 Stool C. difficile DNA Amplification - Final 10/11/19 12:00 Stool Enteric Bacteriology - Final 10/11/19 12:00 Stool Stool Lactoferrin - Final Laboratory Results 10/12/19 11:55: POC Glucose 286 H 10/12/19 16:44: POC Glucose 214 H 10/12/19 21:42: POC Glucose 242 H 10/13/19 05:46: WBC 7.4, RBC 3.48 L, Hgb 10.2 L, Hct 31.9 L, MCV 91.7, MCH 29.3, MCHC 32.0, RDW Std Deviation 58.4 H, RDW Coeff of Jan 18.0 H, Plt Count 155, MPV 12.9 H, Immature Gran % (Auto) 1.400 H, Neut % (Auto) 62.3, Lymph % (Auto) 25.9, [place] % (Auto) 4.6, Eos % (Auto) 5.0, Baso % (Auto) 0.8, Absolute Neuts (auto) 4.6, Absolute Lymphs (auto) 1.92, Nucleated RBC % 0 10/13/19 05:46: Sodium 139, Potassium 4.1, Chloride 106, Carbon Dioxide 27.0, Anion Gap 6, BUN 13, Creatinine 1.26 H, Estim Creat Clear Calc 45.60, Est GFR (MDRD) Af Amer 56 L, Est GFR (MDRD) Non-Af 46 L, BUN/Creatinine Ratio 10.3, Glucose 218 H, Calcium 8.5, Total Bilirubin 0.50, AST 15, ALT 19, Alkaline Phosphatase 129 H, Total Protein 6.5, Albumin 2.7 L, Globulin 3.8, Albumin/Globulin Ratio 0.7 L Current Medications Acetaminophen (Tylenol) 650 mg PO Q6H PRN PRN PRN Reason: Pain Score 1-10/Temp > 100.7 F Last Admin: 10/12/19 14:32 Dose: 650 mg Documented by: Albuterol Sulfate (Ventolin Aerosols) 2.5 mg INHALATION Q6HWA.RT [facility] Last Admin: 10/13/19 06:54 Dose: 2.5 mg Documented by: Aspirin (Ecotrin) 81 mg PO DAILY@0800 [facility] Last Admin: 10/12/19 07:07 Dose: 81 mg Documented by: Atorvastatin Calcium (Lipitor) 80 mg PO QHS [facility] Last Admin: 10/12/19 21:46 Dose: 80 mg Documented by: Baclofen (Lioresal) 10 mg PO QHS [facility] Last Admin: 10/12/19 21:45 Dose: 10 mg Documented by: Budesonide (Pulmicort Aerosol) 0.5 mg INHALATION Q12H.[facility] Last Admin: 10/13/19 06:54 Dose: 0.5 mg Documented by: Calcium Ac[facility] ([facility]) [facility] Last Admin: 10/12/19 16:53 Dose: 667 mg Documented by: Cholecalciferol (Vitamin D (25mcg)) [facility] Last Admin: 10/12/19 11:47 Dose: 2,000 unit Documented by: Dextrose (D50w Syringe) 0 gm IV X1 PRN; Protocol PRN Reason: Hypoglycemia Dicyclomine HCl (Bentyl) 10 mg PO [facility] Last Admin: 10/13/19 10:44 Dose: 10 mg Documented by: Folic Acid (Folic Acid) [facility] Last Admin: 10/12/19 11:48 Dose: 1 mg Documented by: Glucagon () 1 mg IM .X1 PRN PRN Reason: Hypoglycemia Heparin Sodium (Porcine) (Heparin Na) 5,000 unit SC Q8 [facility] Last Admin: 10/13/19 06:29 Dose: 5,000 unit Documented by: Sodium Chloride () 250 mls @ 15 mls/hr IV .[id number] PRN PRN Reason: Saline Flush Insulin Glargine (Lantus (Bkc)) 50 units SC BID [facility] Last Admin: 10/12/19 21:49 Dose: 50 u Documented by: Insulin Human Lispro (Humalog Kwikpen (Bkc)) 45 unit SC 0800,1200,1700 [facility] Last Admin: 10/12/19 16:50 Dose: 45 units Documented by: Insulin Human Lispro (Humalog Kwikpen (Bkc)) 0 unit SC ACHS [facility]; Protocol Last Admin: 10/13/19 08:00 Dose: Not Given Documented by: Isosorbide Dinitrate (Isordil) 30 mg PO BID [facility] Last Admin: 10/12/19 21:45 Dose: 30 mg Documented by: Magnesium Hydroxide (Milk Of Magnesia) 30 ml PO DAILY PRN PRN PRN Reason: Constipation Metoclopramide HCl (Reglan) 5 mg PO Q6H PRN PRN PRN Reason: NAUSEA Metoprolol Tartrate (Lopressor (Beta Isaac)) 25 mg PO BID [facility] Last Admin: 10/12/19 21:47 Dose: 25 mg Documented by: Metoprolol Tartrate (Lopressor (Beta Isaac)) 50 mg PO BID [facility] Last Admin: 10/12/19 21:46 Dose: 50 mg Documented by: Nitroglycerin (Nitrostat) 0.4 mg SUBLINGUAL Q5M PRN PRN Reason: CARDIAC/CHEST PAIN Nutritional Formula (Lactose Free) (Ensure Clear) 120 ml PO TIDCM [facility] Last Admin: 10/13/19 10:47 Dose: Not Given Documented by: Ondansetron HCl (Zofran) 4 mg IV Q8H PRN PRN PRN Reason: NAUSEA/VOMITING Pantoprazole Sodium (Protonix) 40 mg PO DAILY [facility] Last Admin: 10/13/19 10:44 Dose: 40 mg Documented by: Pregabalin (Lyrica) 50 mg PO BID [facility] Last Admin: 10/13/19 10:43 Dose: 50 mg Documented by: Promethazine HCl (Phenergan Tablet) 25 mg PO Q6H PRN PRN PRN Reason: NAUSEA Sodium Chloride () 10 - 40 ml IV UD PRN PRN Reason: SALINE FLUSH Last Admin: 10/12/19 16:47 Dose: 10 ml Documented by: Tramadol HCl (Ultram) 50 mg PO BID PRN PRN Reason: Pain Score 6-10/10 Last Admin: 10/12/19 14:32 Dose: 50 mg Documented by: Trazodone HCl (Desyrel) 50 mg PO QHS [facility] Last Admin: 10/12/19 21:45 Dose: 50 mg Documented by: Venlafaxine HCl (Effexor Xr) 150 mg PO DAILY [facility] Last Admin: 10/12/19 11:47 Dose: 150 mg Documented by: STROKE Vital Signs/Narrative: Vital Signs Temp Pulse Resp BP Pulse Ox 10/13/19 10:50 98.2 F 69 15 127/49 H 93 10/13/19 07:45 94 Medical Necessity - Tobacco Use Smoking Status: Former smoker Tobacco Use: Non-smoker Assessment/Plan All Active Problems (Last Reviewed 09/11/19 @ 14:[address] Heath Dewitt MD) Pancreatitis (Resolved) H/O coronary artery bypass surgery (Resolved 05/18/12) History of coronary artery stent placement (Resolved 01/12/18) Abdominal pain (Resolved) Acute pancreatitis (Resolved) COPD exacerbation (Resolved) Chest pain (Resolved) Chest pain (Resolved) Hallucinations (Resolved) Hypokalemia (Resolved) Irritant dermatitis (Resolved) Lumbar back pain (Resolved) Multiple falls (Resolved) Sepsis (Resolved) Shortness of breath (Resolved) Surgical wound dehiscence (Resolved) 1. Chest pain, presyncope, Hx CAD - stress negative. noncardiac. EKG neg. Trop negx3. Continue asa/plavix, isordil, 2. + orthostatic vitals. continue deisy hoses. 3. Abdominal cramping - small bowel follow through was unremarkable.Symptoms improved with reglan - converted to PO. Increased cramping pain since drinking barium. Home meds and reglan resumed hopefully she will have some relief. She needs to follow up with GI Dr. Moeller at [facility]. 3. Liver mass - biopsy pending 4. Psoriasis - started methotrexate about 2 months prior and has had good results with her skin. She had the dose increased 2 weeks ago and it caused more upset stomach so she was told to go back down to her previous dose. Follow up with Rheumatology. 5. DMt2 uncontrolled with hyperglycemia - continue lantus but change to BID dosing, continue mealtime insulin + SSI. A1C 9.1 on 09/11/19. SSI increased. 6. CKDIII - stable. pt and family interested in referral to neph[place], complaining that their PCP will not refer until she has CKDIV. DVT ppx: heparin This patient was seen by Tomas Sun PA-C under the supervision of Dr. Chandler. <Shiva Chandler - Last Filed: 10/13/19 12:43> Subjective: Was doing well until she drank contrast where she is having abdominal pain since then. However, she has been able to pass some the contrast and the procedure. Vitals/I&O's: Vital Signs Temp Pulse Resp BP Pulse Ox 36.8 C 69 15 127/49 H 93 10/13/19 10:50 10/13/19 10:50 10/13/19 10:50 10/13/19 10:50 10/13/19 10:50 Oxygen Flow Rate (L/min) [5] 2 Oxygen Flow Rate (L/min) [4] 2 Oxygen Flow Rate (L/min) [3] 2 Oxygen Flow Rate (L/min) [2] 2 Oxygen Flow Rate (L/min) [1 ( 2 Initial Baseline)] Oxygen Flow Rate (L/min) 2 Oxygen Delivery Method [5] Nasal Cannula Oxygen Delivery Method [4] Nasal Cannula Oxygen Delivery Method [3] Nasal Cannula Oxygen Delivery Method [2] Nasal Cannula Oxygen Delivery Method [1 ( Nasal Cannula Initial Baseline)] Oxygen Delivery Method Room Air Weight: 89 kg Body Mass Index (BMI) 30.7 Finger Stick Blood Glucose 463 Orthostatic Vital Signs Start: 10/12/19 12:01 Freq: q24h Status: Active Protocol: Activity Type Activity Date Activity User E-Sign Co-Sign Detail Recorded Client Recorded Date Recorded By Document 10/12/19 12:01 BRENDA [id number] 10/12/19 12:04 BRENDA 10/12/19 12:01 Orthostatic Vitals Standing -Blood Pressure (90/60-120/80) 124/59 H -Extremity Use Right Arm -Pulse Rate (60-100) 78 Sitting -Blood Pressure (90/60-120/80) 146/73 H -Extremity Use Right Arm -Pulse Rate (60-100) 74 Lying -Blood Pressure (90/60-120/80) 160/68 H -Extremity Use Right Arm -Pulse Rate (60-100) 74 Intake and Output for Last 24 Hours 10/11/19 10/12/19 10/13/19 23:59 23:59 23:59 Intake Total 2735 / 2735 1120 / 1120 Output Total 600 / 600 Balance 2135 / 2135 1120 / 1120 General: Alert, Cooperative HEENT: Atraumatic, Normocephalic Neck: No Nodes, Thyroid Normal Size and Texture Lungs: Clear to auscultation, Normal air movement, No rhonchi, No wheeze Abdomen: Tender Psych/Mental Status: Normal Affect, Appropriate Microbiology Past 72 Hours 10/11/19 22:50 Stool C. difficile DNA Amplification - Final 10/11/19 12:00 Stool Enteric Bacteriology - Final 10/11/19 12:00 Stool Stool Lactoferrin - Final Laboratory Results 10/12/19 11:55: POC Glucose 286 H 10/12/19 16:44: POC Glucose 214 H 10/12/19 21:42: POC Glucose 242 H 10/13/19 05:46: WBC 7.4, RBC 3.48 L, Hgb 10.2 L, Hct 31.9 L, MCV 91.7, MCH 29.3, MCHC 32.0, RDW Std Deviation 58.4 H, RDW Coeff of Jan 18.0 H, Plt Count 155, MPV 12.9 H, Immature Gran % (Auto) 1.400 H, Neut % (Auto) 62.3, Lymph % (Auto) 25.9, [place] % (Auto) 4.6, Eos % (Auto) 5.0, Baso % (Auto) 0.8, Absolute Neuts (auto) 4.6, Absolute Lymphs (auto) 1.92, Nucleated RBC % 0 10/13/19 05:46: Sodium 139, Potassium 4.1, Chloride 106, Carbon Dioxide 27.0, Anion Gap 6, BUN 13, Creatinine 1.26 H, Estim Creat Clear Calc 45.60, Est GFR (MDRD) Af Amer 56 L, Est GFR (MDRD) Non-Af 46 L, BUN/Creatinine Ratio 10.3, Glucose 218 H, Calcium 8.5, Total Bilirubin 0.50, AST 15, ALT 19, Alkaline Phosphatase 129 H, Total Protein 6.5, Albumin 2.7 L, Globulin 3.8, Albumin/Globulin Ratio 0.7 L Current Medications Acetaminophen (Tylenol) 650 mg PO Q6H PRN PRN PRN Reason: Pain Score 1-10/Temp > 100.7 F Last Admin: 10/12/19 14:32 Dose: 650 mg Documented by: Albuterol Sulfate (Ventolin Aerosols) 2.5 mg INHALATION Q6HWA.RT [facility] Last Admin: 10/13/19 06:54 Dose: 2.5 mg Documented by: Aspirin (Ecotrin) 81 mg PO DAILY@0800 [facility] Last Admin: 10/12/19 07:07 Dose: 81 mg Documented by: Atorvastatin Calcium (Lipitor) 80 mg PO QHS [facility] Last Admin: 10/12/19 21:46 Dose: 80 mg Documented by: Baclofen (Lioresal) 10 mg PO QHS [facility] Last Admin: 10/12/19 21:45 Dose: 10 mg Documented by: Budesonide (Pulmicort Aerosol) 0.5 mg INHALATION Q12H.RT [facility] Last Admin: 10/13/19 06:54 Dose: 0.5 mg Documented by: Calcium Acetate ([facility]lo [facility] Cap) [facility] Last Admin: 10/12/19 16:53 Dose: 667 mg Documented by: Cholecalciferol (Vitamin D (25mcg)) 2,[facility] Last Admin: 10/12/19 11:47 Dose: 2,000 unit Documented by: Dextrose (D50w Syringe) 0 gm IV X1 PRN; Protocol PRN Reason: Hypoglycemia Dicyclomine HCl (Bentyl) 10 mg PO ACHS [facility] Last Admin: 10/13/19 10:44 Dose: 10 mg Documented by: Folic Acid (Folic Acid) [facility] Last Admin: 10/12/19 11:48 Dose: 1 mg Documented by: Glucagon () 1 mg IM .X1 PRN PRN Reason: Hypoglycemia Heparin Sodium (Porcine) (Heparin Na) 5,000 unit SC Q8 [facility] Last Admin: 10/13/19 06:29 Dose: 5,000 unit Documented by: Sodium Chloride () 250 mls @ 15 mls/hr IV .[id number] PRN PRN Reason: Saline Flush Insulin Glargine (Lantus (Bkc)) 50 units SC BID [facility] Last Admin: 10/12/19 21:49 Dose: 50 u Documented by: Insulin Human Lispro (Humalog Kwikpen (Bkc)) 45 unit SC 0800,1200,1700 [facility] Last Admin: 10/13/19 08:00 Dose: Not Given Documented by: Insulin Human Lispro (Humalog Kwikpen (Bkc)) 0 unit SC ACHS [facility]; Protocol Last Admin: 10/13/19 08:00 Dose: Not Given Documented by: Isosorbide Dinitrate (Isordil) 30 mg PO BID [facility] Last Admin: 10/12/19 21:45 Dose: 30 mg Documented by: Magnesium Hydroxide (Milk Of Magnesia) 30 ml PO DAILY PRN PRN PRN Reason: Constipation Metoclopramide HCl (Reglan) 5 mg PO Q6H PRN PRN PRN Reason: NAUSEA Metoprolol Tartrate (Lopressor (Beta Isaac)) 25 mg PO BID [facility] Last Admin: 10/12/19 21:47 Dose: 25 mg Documented by: Metoprolol Tartrate (Lopressor (Beta Isaac)) 50 mg PO BID [facility] Last Admin: 10/12/19 21:46 Dose: 50 mg Documented by: Nitroglycerin (Nitrostat) 0.4 mg SUBLINGUAL Q5M PRN PRN Reason: CARDIAC/CHEST PAIN Nutritional Formula (Lactose Free) (Ensure Clear) 120 ml PO TIDCM [facility] Last Admin: 10/13/19 10:47 Dose: Not Given Documented by: Ondansetron HCl (Zofran) 4 mg IV Q8H PRN PRN PRN Reason: NAUSEA/VOMITING Pantoprazole Sodium (Protonix) 40 mg PO DAILY [facility] Last Admin: 10/13/19 10:44 Dose: 40 mg Documented by: Pregabalin (Lyrica) 50 mg PO BID [facility] Last Admin: 10/13/19 10:43 Dose: 50 mg Documented by: Promethazine HCl (Phenergan Tablet) 25 mg PO Q6H PRN PRN PRN Reason: NAUSEA Sodium Chloride () 10 - 40 ml IV UD PRN PRN Reason: SALINE FLUSH Last Admin: 10/12/19 16:47 Dose: 10 ml Documented by: Tramadol HCl (Ultram) 50 mg PO BID PRN PRN Reason: Pain Score 6-10/10 Last Admin: 10/12/19 14:32 Dose: 50 mg Documented by: Trazodone HCl (Desyrel) 50 mg PO QHS [facility] Last Admin: 10/12/19 21:45 Dose: 50 mg Documented by: Venlafaxine HCl (Effexor Xr) 150 mg PO DAILY [facility] Last Admin: 10/12/19 11:47 Dose: 150 mg Documented by: STROKE Vital Signs/Narrative: Vital Signs Temp Pulse Resp BP Pulse Ox 10/13/19 10:50 36.8 C 69 15 127/49 H 93 Assessment/Plan Patient seen and examined independently. Data reviewed. I agree with the above note by the physician study assistant. 1. Abdominal cramping: This is been a chronic process. Overall has had some improvement though slightly worse after drinking some the contrast. The small bowel follow-through was negative for any acute process, however. If we can get the patient's symptoms fairly well controlled then patient can be discharged and then follow-up with gastroenterology. Patient was going to see Dr. Jim but would not be able to see him until the next 3 to 4 months. She was interested in seeing Dr. 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 It may be just a matter of symptom control with current medications as delineated above. Inpatient E&M: [id number] [facility] L2
[2019-10-13] MEDS: Calcium Acetate 667 MG Capsule PO (13:06)
[2019-10-13] MEDS: Folic Acid 1 MG Tablet PO (13:06)
[2019-10-13] MEDS: Aspirin E.C. 81 MG Tablet PO (13:06)
[2019-10-13] MEDS: Metoprolol Tartrate 25 MG Tablet PO (13:07)
[2019-10-13] MEDS: Metoprolol Tartrate 50 MG Tablet PO (13:07)
[2019-10-13] MEDS: Isosorbide DN 30 MG Tablet PO (13:07)
[2019-10-13] MEDS: Venlafaxine XR 150 MG Capsule PO (13:07)
--- NOTE | 2019-10-13 13:13 | DCINST_ITS ---
You will use the following diet at home:: Calorie/Carbohydrate Controlled (specify 1200, 1400, etc) - 1800 carrol / day, Cardiac Your food should be the consistency of: Regular Your liquids should be the consistency of: Regular/Thin Discharge Activity: Return to Normal Activity Instructions: Liver Biopsy, ED Procedural Sedation, (Adult) Allergies/Adverse Reactions: Allergies ciprofloxacin Allergy (Intermediate, Verified 08/01/19 13:21) Swelling cinnamon [Cinnamon] Allergy (Verified 08/01/19 13:21) Anaphylaxis Influenza Virus Vaccines Allergy (Verified 08/01/19 13:21) Shortness of breath liraglutide [From Victoza] Allergy (Verified 08/01/19 13:21) Anaphylaxis metronidazole [From Flagyl] Allergy (Verified 08/01/19 13:21) Hives Metronidazole HCl [From Flagyl] Allergy (Verified 08/01/19 13:21) Hives Penicillins Allergy (Verified 08/01/19 13:21) Hives Sulfa (Sulfonamide Antibiotics) Allergy (Verified 08/01/19 13:21) Hives codeine Adverse Reaction (Verified 08/01/19 13:21) Stops Ileostomy dicyclomine HCl [From Bentyl] Adverse Reaction (Verified 08/01/19 13:21) Nausea metformin HCl [From Glucophage] Adverse Reaction (Verified 08/01/19 13:21) Nausea ranolazine Adverse Reaction (Verified 08/01/19 13:21) Nausea/Vom/Diarrhea Opdzixn-Rsa-Kha Reductase Inhibitor Adverse Reaction (Verified 08/01/19 13:21) Nausea/joints ache Medications to take at Discharge Aspirin E.C. [Ecotrin] 81 mg PO DAILY 01/11/18 nitroglycerin 0.4 mg sublingual tablet 0.4 mg SUBLINGUAL Q5M PRN #25 tab 02/18/18 Baclofen [Lioresal] 10 mg PO QHS 06/30/18 Hydrocortisone 1% Crm [Hytone] 1 applic TOPICAL BID 06/30/18 atorvastatin 80 mg tablet 80 mg PO QHS #90 tab 09/06/18 venlafaxine 150 mg capsule,extended release 24 hr 150 mg PO DAILY #90 cap 09/06/18 fluticasone furoate 100 mcg-vilanterol 25 mcg/dose inhalation powder 1 inh INHALATION Q24H #60 ea 09/19/18 cholecalciferol (vitamin D3) 50 mcg (2,000 unit) capsule 2,000 unit PO DAILY #90 cap 12/06/18 tramadol 50 mg tablet 50 mg PO BID PRN 05/03/19 clopidogrel 75 mg tablet 75 mg PO DAILY #90 tab 05/29/19 buprenorphine 15 mcg/hour weekly transdermal patch 1 patch TRANSDERMAL SA 06/14/19 calcium acetate(phosphat bind) 667 mg tablet 667 mg PO BID #180 tab 07/06/19 ondansetron 4 mg oral soluble film 4 mg PO Q8H PRN #30 ea 08/16/19 folic acid 1 mg tablet 1 mg PO DAILY 09/11/19 Furosemide 40 mg PO DAILY PRN PRN 10/10/19 Insulin Glargine [Lantus SoloStar Pen] 100 unit SUBCUT QHS 10/10/19 Insulin Lispro [Humalog Kwikpen U-200] 45 unit SQ TIDCM 10/10/19 Isosorbide DN [Isordil] 30 mg PO BID 10/10/19 Metoprolol Tartrate 25 mg PO DAILY 10/10/19 Metoprolol Tartrate 50 mg PO BID 10/10/19 Pregabalin 50 mg PO BID 10/10/19 traZODone [Desyrel] 50 mg PO QHS 10/10/19 Dicyclomine HCl [Bentyl] 10 mg PO ACHS #120 cap 10/13/19 Methotrexate Sodium/Pf [Methotrexate 50 mg/2 ml Vial] 0.6 ml IJ MOORE #0 10/13/19 Metoclopramide [Reglan] 5 mg PO Q6H PRN PRN #120 tab 10/13/19 Pantoprazole Sodium [Protonix] 40 mg PO DAILY #30 tab 10/13/19 The following prescriptions were given: Dicyclomine HCl [Bentyl] 10 mg PO ACHS #120 cap Transmission Status: Pending to [id number] Pantoprazole Sodium [Protonix] 40 mg PO DAILY #30 tab Transmission Status: Pending to [facility][id number] Metoclopramide [Reglan] 5 mg PO Q6H PRN PRN #120 tab PRN Reason: NAUSEA Transmission Status: Pending to [id number] Primary Care Physician: Mala Mcgraht MD [Primary Care Provider] - Please follow up with your Primary Care Physician in: 1-2 weeks Test Results: Test results from this visit will be discussed in further detail at your follow- up appointment, if applicable. Please Follow Up With: Randi Cain DO When: 2 weeks Please Follow Up With: Gastroenterology [facility] When: 2 weeks Proposed Discharge Date: 10/13/19
--- NOTE | 2019-10-13 13:14 | PCM.DC.SUM ---
<Tomas Sun - Last Filed: 10/13/19 13:14> Discharge Date and Diagnosis Date of Admission: 10/10/19 Date of Discharge: 10/13/19 - Primary Discharge Diagnosis Acute Problems: Abdominal pain Liver mass unclear etiology Gastroparesis chest pain cardiac etiology ruled out hx CAD lightheadedness 2/2 orthostatic hypotension Psoriatic arthritis - Secondary Discharge Diagnosis Chronic Problems: Chronic Problems (Last Reviewed 09/11/19 @ 14:[address] Heath Dewitt MD) 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) Benign essential hypertension (Chronic) Diabetic gastroparesis (Chronic) Diabetes (Chronic) Secondary pulmonary arterial hypertension (Chronic) Chronic diastolic (congestive) heart failure (Chronic) BMI 31.0-31.9,adult (Chronic) Depression with anxiety (Chronic) Gastroenteritis (Chronic) Arthritis (Chronic) Essential (primary) hypertension (Chronic) Atherosclerosis of coronary artery bypass graft without angina pectoris (Chronic) CABG x 4 JONES-LAD, SVG-D1, SVG-OM1, SVG-LPDA 05/18/2012 PCI-CLINTON mid D1 with a 2.25 x 12 Promus Synergy 01/12/2018 Mid LAD and Cx 08/30/2012, D1 and prox OM1 09/14/12, Prox SVG, Distal SVG to the Mid OM 10/31/2012 COPD (chronic obstructive pulmonary disease) (Chronic) Anemia of chronic renal failure, stage 3 (moderate) (Chronic) Obstructive sleep apnea (Chronic) Right thyroid nodule (Chronic) 1.4 centimeter right sided nodule on CT scan Ulcerative colitis (Chronic) Hyperlipidemia (Chronic) DM2 (diabetes mellitus, type 2) (Chronic) Hospital Course and Treatment Imaging Results: CT/Abdomen/Pelvis WITH Contrast IMPRESSION: Prominent 5.4 cm x 2.3 cm x 4.6 cm inhomogeneous density in the inferior anterior aspect of the right lobe of the liver. This was not present on prior examination. A metastatic deposit should be ruled out. As also evidence of a 9.4 mm hypodensity in the posterior medial aspect of the right lobe of the liver as seen on axial image #19. Status post total colectomy. CT/Biopsy/Inj or Needle Placement IMPRESSION: 1. CT directed core needle biopsy of the liver, using CT image guidance with image documentation as described. 2. Conscious Sedation protocol utilized with independent monitoring. RAD/Small Bowel Series Only IMPRESSION: Status post ostomy in the left lower quadrant. Small bowel examination is unremarkable. Stress Test: Interpretation: Rest and stress SPECT Cardiolite nuclear imaging status post realignment, normalization, and attenuation correction demonstrate no significant fixed or reversible defect suggestive of significant ischemia or infarction. Gated images reveal no significant regional wall motion abnormalities. The reported LVEF is 64 %. Impression: 1. There is no evidence of significant ischemia or infarction. 2. Estimated ejection fraction is 64%. Consultations 10/11/19 04:53 Consult: Onc/Wound/complex care nurse Routine Comment: Reason for Consult:: irritation/redness around ileosotomy Operations: None Procedures: Stress test Summary of Care Provided: Hospital Course: The patient is a 59 year old F with pmhx of Dmt2 with gastroparesis, ulcerative colitis with prior colon resections and iliostomy, CAD, Psoriatic arthritis on MTX, CKDIII, who presented to the ER with abdominal pain for 2 weeks. She had severe cramping abdominal pain and nausea. She was found to have a liver mass on CT. This was later biopsied and results came back showing QUIROGA no malignancy. She was made NPO and admitted. Started on bentyl for cramping. She later complained of chest pain, sob with exertion, and LH on standing. She had a chest pain workup including EKG, troponins, and stress test, all of which was negative. She did have an orthostatic drop in BP and this was treated with deisy hoses. She continued to have cramping abdominal pain. She had decreased output from her ostomy. A small bowel follow through was performed and was negative. Bentyl, reglan, and protonix were given and the patient associated these with improvement in her abdominal cramping so these were prescribed at discharge. She needs follow up with GI. She plans to follow up with one of two GI doctors in [place], but also is aware that she has options for GI in [place] and via [facility]. She requested referral to nephrology as an outpatient as she had CKDIII and never been seen by neprhology. I recommended she follow up with Nephrology in 2 weeks. She also needs to follow up with her PCP in 1-2 weeks. Lastly, she recently increased her MTX dose from 0.6 to 0.8 and felt that it caused her to have increased abdominal pain and nausea. She reports that she was told to go back down to 0.6 by her excelsior machine operator. Given her liver disease I have asked her to hold resumption of this until she talks to her excelsior machine operator. This patient was seen by Tomas Sun PA-C under the supervision of Dr. Chandler [] - Physical Exam Vitals/I&O's: Vital Signs Temp Pulse Resp BP Pulse Ox 98.2 F 69 15 157/51 H 93 10/13/19 10:50 10/13/19 13:07 10/13/19 10:50 10/13/19 13:00 10/13/19 10:50 Oxygen Flow Rate (L/min) [5] 2 Oxygen Flow Rate (L/min) [4] 2 Oxygen Flow Rate (L/min) [3] 2 Oxygen Flow Rate (L/min) [2] 2 Oxygen Flow Rate (L/min) [1 ( 2 Initial Baseline)] Oxygen Flow Rate (L/min) 2 Oxygen Delivery Method [5] Nasal Cannula Oxygen Delivery Method [4] Nasal Cannula Oxygen Delivery Method [3] Nasal Cannula Oxygen Delivery Method [2] Nasal Cannula Oxygen Delivery Method [1 ( Nasal Cannula Initial Baseline)] Oxygen Delivery Method Room Air Weight: 196 lb 3.382 oz Body Mass Index (BMI) 30.7 Finger Stick Blood Glucose 463 Orthostatic Vital Signs Start: 10/12/19 12:01 Freq: q24h Status: Active Protocol: Activity Type Activity Date Activity User E-Sign Co-Sign Detail Recorded Client Recorded Date Recorded By Document 10/12/19 12:01 BRENDA [id number] 10/12/19 12:04 BRENDA 10/12/19 12:01 Orthostatic Vitals Standing -Blood Pressure (90/60-120/80) 124/59 H -Extremity Use Right Arm -Pulse Rate (60-100) 78 Sitting -Blood Pressure (90/60-120/80) 146/73 H -Extremity Use Right Arm -Pulse Rate (60-100) 74 Lying -Blood Pressure (90/60-120/80) 160/68 H -Extremity Use Right Arm -Pulse Rate (60-100) 74 Intake and Output for Last 24 Hours 10/11/19 10/12/19 10/13/19 23:59 23:59 23:59 Intake Total 2735 / 2735 1120 / 1120 Output Total 600 / 600 Balance 2135 / 2135 1120 / 1120 General: Alert, Oriented x3, Cooperative HEENT: Atraumatic, PERRLA, EOMI, Normocephalic Neck: Supple, No JVD, Negative Carotid Bruits Lungs: Clear to auscultation, Normal air movement Cardiovascular: Regular rate, No murmurs Abdomen: Bowel Sounds Present, Soft, Tender - RLQ, RUQ Extremities: No edema, Capillary Refill Less than 3 Seconds Skin: No rashes, No breakdown Musculoskeletal: No Tenderness to Palpation of Joints or Extremities Neurological: Cranial nerves II-XII grossly intact Psych/Mental Status: Normal Affect, Appropriate, Alert and oriented to time, place, person, mood and affect Microbiology Past 72 Hours 10/11/19 22:50 Stool C. difficile DNA Amplification - Final 10/11/19 12:00 Stool Enteric Bacteriology - Final 10/11/19 12:00 Stool Stool Lactoferrin - Final Laboratory Results 10/12/19 16:44: POC Glucose 214 H 10/12/19 21:42: POC Glucose 242 H 10/13/19 05:46: WBC 7.4, RBC 3.48 L, Hgb 10.2 L, Hct 31.9 L, MCV 91.7, MCH 29.3, MCHC 32.0, RDW Std Deviation 58.4 H, RDW Coeff of Jan 18.0 H, Plt Count 155, MPV 12.9 H, Immature Gran % (Auto) 1.400 H, Neut % (Auto) 62.3, Lymph % (Auto) 25.9, [place] % (Auto) 4.6, Eos % (Auto) 5.0, Baso % (Auto) 0.8, Absolute Neuts (auto) 4.6, Absolute Lymphs (auto) 1.92, Nucleated RBC % 0 10/13/19 05:46: Sodium 139, Potassium 4.1, Chloride 106, Carbon Dioxide 27.0, Anion Gap 6, BUN 13, Creatinine 1.26 H, Estim Creat Clear Calc 45.60, Est GFR (MDRD) Af Amer 56 L, Est GFR (MDRD) Non-Af 46 L, BUN/Creatinine Ratio 10.3, Glucose 218 H, Calcium 8.5, Total Bilirubin 0.50, AST 15, ALT 19, Alkaline Phosphatase 129 H, Total Protein 6.5, Albumin 2.7 L, Globulin 3.8, Albumin/Globulin Ratio 0.7 L Current Medications Acetaminophen (Tylenol) 650 mg PO Q6H PRN PRN PRN Reason: Pain Score 1-10/Temp > 100.7 F Last Admin: 10/12/19 14:32 Dose: 650 mg Documented by: Albuterol Sulfate (Ventolin Aerosols) 2.5 mg INHALATION Q6HWA.RT [facility] Last Admin: 10/13/19 06:54 Dose: 2.5 mg Documented by: Aspirin (Ecotrin) 81 mg PO DAILY@0800 [facility] Last Admin: 10/13/19 13:06 Dose: 81 mg Documented by: Atorvastatin Calcium (Lipitor) 80 mg PO QHS [facility] Last Admin: 10/12/19 21:46 Dose: 80 mg Documented by: Baclofen (Lioresal) 10 mg PO QHS [facility] Last Admin: 10/12/19 21:45 Dose: 10 mg Documented by: Budesonide (Pulmicort Aerosol) 0.5 mg INHALATION Q12H.RT [facility] Last Admin: 10/13/19 06:54 Dose: 0.5 mg Documented by: Calcium Acetate (Phoslo Gel Cap) 667 mg PO BIDCM [facility] Last Admin: 10/13/19 13:06 Dose: 667 mg Documented by: Cholecalciferol (Vitamin D (25mcg)) 2,000 unit PO DAILYCM [facility] Last Admin: 10/13/19 13:06 Dose: 2,000 unit Documented by: Dextrose (D50w Syringe) 0 gm IV X1 PRN; Protocol PRN Reason: Hypoglycemia Dicyclomine HCl (Bentyl) 10 mg PO ACHS [facility] Last Admin: 10/13/19 13:10 Dose: 10 mg Documented by: Folic Acid (Folic Acid) 1 mg PO DAILYCM [facility] Last Admin: 10/13/19 13:06 Dose: 1 mg Documented by: Glucagon () 1 mg IM .X1 PRN PRN Reason: Hypoglycemia Heparin Sodium (Porcine) (Heparin Na) 5,000 unit SC Q8 [facility] Last Admin: 10/13/19 06:29 Dose: 5,000 unit Documented by: Sodium Chloride () 250 mls @ 15 mls/hr IV .[id number] PRN PRN Reason: Saline Flush Insulin Glargine (Lantus (Bkc)) 50 units SC BID [facility] Last Admin: 10/12/19 21:49 Dose: 50 u Documented by: Insulin Human Lispro (Humalog Kwikpen (Bkc)) 45 unit SC 0800,1200,1700 [facility] Last Admin: 10/13/19 08:00 Dose: Not Given Documented by: Insulin Human Lispro (Humalog Kwikpen (Bkc)) 0 unit SC ACHS [facility]; Protocol Last Admin: 10/13/19 08:00 Dose: Not Given Documented by: Isosorbide Dinitrate (Isordil) 30 mg PO BID [facility] Last Admin: 10/13/19 13:07 Dose: 30 mg Documented by: Magnesium Hydroxide (Milk Of Magnesia) 30 ml PO DAILY PRN PRN PRN Reason: Constipation Metoclopramide HCl (Reglan) 5 mg PO Q6H PRN PRN PRN Reason: NAUSEA Metoprolol Tartrate (Lopressor (Beta Isaac)) 25 mg PO BID [facility] Last Admin: 10/13/19 13:07 Dose: 25 mg Documented by: Metoprolol Tartrate (Lopressor (Beta Isaac)) 50 mg PO BID [facility] Last Admin: 10/13/19 13:07 Dose: 50 mg Documented by: Nitroglycerin (Nitrostat) 0.4 mg SUBLINGUAL Q5M PRN PRN Reason: CARDIAC/CHEST PAIN Nutritional Formula (Lactose Free) (Ensure Clear) 120 ml PO TIDCM [facility] Last Admin: 10/13/19 13:10 Dose: Not Given Documented by: Ondansetron HCl (Zofran) 4 mg IV Q8H PRN PRN PRN Reason: NAUSEA/VOMITING Pantoprazole Sodium (Protonix) 40 mg PO DAILY [facility] Last Admin: 10/13/19 10:44 Dose: 40 mg Documented by: Pregabalin (Lyrica) 50 mg PO BID [facility] Last Admin: 10/13/19 10:43 Dose: 50 mg Documented by: Promethazine HCl (Phenergan Tablet) 25 mg PO Q6H PRN PRN PRN Reason: NAUSEA Sodium Chloride () 10 - 40 ml IV UD PRN PRN Reason: SALINE FLUSH Last Admin: 10/12/19 16:47 Dose: 10 ml Documented by: Tramadol HCl (Ultram) 50 mg PO BID PRN PRN Reason: Pain Score 6-1010 Last Admin: 10/12/19 14:32 Dose: 50 mg Documented by: Trazodone HCl (Desyrel) 50 mg PO QHS [facility] Last Admin: 10/12/19 21:45 Dose: 50 mg Documented by: Venlafaxine HCl (Effexor Xr) 150 mg PO DAILY [facility] Last Admin: 10/13/19 13:07 Dose: 150 mg Documented by: Discharge Diet: Low fat/ Low Cholesterol, 2000 mg Sodium Diet Discharge Activity: Return to Normal Activity Home Medications: Medications to take at Discharge Aspirin E.C. [Ecotrin] 81 mg PO DAILY 01/11/18 nitroglycerin 0.4 mg sublingual tablet 0.4 mg SUBLINGUAL Q5M PRN #25 tab 02/18/18 Baclofen [Lioresal] 10 mg PO QHS 06/30/18 Hydrocortisone 1% Crm [Hytone] 1 applic TOPICAL BID 06/30/18 atorvastatin 80 mg tablet 80 mg PO QHS #90 tab 09/06/18 venlafaxine 150 mg capsule,extended release 24 hr 150 mg PO DAILY #90 cap 09/06/18 fluticasone furoate 100 mcg-vilanterol 25 mcg/dose inhalation powder 1 inh INHALATION Q24H #60 ea 09/19/18 cholecalciferol (vitamin D3) 50 mcg (2,000 unit) capsule 2,000 unit PO DAILY #90 cap 12/06/18 tramadol 50 mg tablet 50 mg PO BID PRN 05/03/19 clopidogrel 75 mg tablet 75 mg PO DAILY #90 tab 05/29/19 buprenorphine 15 mcg/hour weekly transdermal patch 1 patch TRANSDERMAL SA 06/14/19 calcium acetate(phosphat bind) 667 mg tablet 667 mg PO BID #180 tab 07/06/19 ondansetron 4 mg oral soluble film 4 mg PO Q8H PRN #30 ea 08/16/19 folic acid 1 mg tablet 1 mg PO DAILY 09/11/19 Furosemide 40 mg PO DAILY PRN PRN 10/10/19 Insulin Glargine [Lantus SoloStar Pen] 100 unit SUBCUT QHS 10/10/19 Insulin Lispro [Humalog Kwikpen U-200] 45 unit SQ TIDCM 10/10/19 Isosorbide DN [Isordil] 30 mg PO BID 10/10/19 Metoprolol Tartrate 25 mg PO DAILY 10/10/19 Metoprolol Tartrate 50 mg PO BID 10/10/19 Pregabalin 50 mg PO BID 10/10/19 traZODone [Desyrel] 50 mg PO QHS 10/10/19 Dicyclomine HCl [Bentyl] 10 mg PO ACHS #120 cap 10/13/19 Methotrexate Sodium/Pf [Methotrexate 50 mg/2 ml Vial] 0.6 ml IJ MOORE #0 10/13/19 Metoclopramide [Reglan] 5 mg PO Q6H PRN PRN #120 tab 10/13/19 Pantoprazole Sodium [Protonix] 40 mg PO DAILY #30 tab 10/13/19 Following Prescriptions Were Given to Patient: Dicyclomine HCl [Bentyl] 10 mg PO ACHS #120 cap Transmission Status: Received by [id number] Pantoprazole Sodium [Protonix] 40 mg PO DAILY #30 tab Transmission Status: Received by [id number] Metoclopramide [Reglan] 5 mg PO Q6H PRN PRN #120 tab PRN Reason: NAUSEA Transmission Status: Received by [id number] Primary Care Physician: Mala Mcgrath MD [Primary Care Provider] - Please follow up with your Primary Care Physician in: 1-2 weeks Please Follow Up With: Randi Cain DO When: 2 weeks Please Follow Up With: Gastroenterology [facility] When: 2 weeks Patient Instructions: Liver Biopsy, ED Procedural Sedation, (Adult) Disposition: Home Minutes spent on discharge:: 35 Patient Condition:: Stable Medical Necessity - Tobacco Use Smoking Status: Former smoker Tobacco Use: Non-smoker Meaningful Use Info Meaningful Use Diagnoses (Choose all that apply): None applicable <Shiva Chandler - Last Filed: 10/13/19 15:27> Discharge Date and Diagnosis - Secondary Discharge Diagnosis Chronic Problems: Chronic Problems (Last Reviewed 09/11/19 @ 14:[address] Heath Dewitt MD) 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) Benign essential hypertension (Chronic) Diabetic gastroparesis (Chronic) Diabetes (Chronic) Secondary pulmonary arterial hypertension (Chronic) Chronic diastolic (congestive) heart failure (Chronic) BMI 31.0-31.9,adult (Chronic) Depression with anxiety (Chronic) Gastroenteritis (Chronic) Arthritis (Chronic) Essential (primary) hypertension (Chronic) Atherosclerosis of coronary artery bypass graft without angina pectoris (Chronic) CABG x 4 JONES-LAD, SVG-D1, SVG-OM1, SVG-LPDA 05/18/2012 PCI-CLINTON mid D1 with a 2.25 x 12 Promus Synergy 01/12/2018 Mid LAD and Cx 08/30/2012, D1 and prox OM1 09/14/12, Prox SVG, Distal SVG to the Mid OM 10/31/2012 COPD (chronic obstructive pulmonary disease) (Chronic) Anemia of chronic renal failure, stage 3 (moderate) (Chronic) Obstructive sleep apnea (Chronic) Right thyroid nodule (Chronic) 1.4 centimeter right sided nodule on CT scan Ulcerative colitis (Chronic) Hyperlipidemia (Chronic) DM2 (diabetes mellitus, type 2) (Chronic) Hospital Course and Treatment Consultations 10/11/19 04:53 Consult: Onc/Wound/complex care nurse Routine Comment: Reason for Consult:: irritation/redness around ileosotomy Operations: None Procedures: Stress test Summary of Care Provided: Patient seen and examined independently. Data reviewed. I agree with the above note by the physician assistant chief train dispatcher. The patient is a 59 year old F presents with abdominal cramps. Patient had very extensive work-up, including stress test, CAT scan and small bowel follow-through. CAT scan showed some lesions on her liver and did have a biopsy. Biopsy showed nonalcoholic steatohepatitis. Patient had small bowel follow-through that was resolved. Patient symptoms seem to be more mechanical but intermittent and sometimes positional. Given patient's history of coronary artery disease, stress test was performed to ensure that this was not some atypical cardiac variant which was negative essentially ruling out any cardiac etiology of her symptoms. Advised patient to follow-up with gastroenterology in regards to further follow-up and surveillance for her Quiroga as well as her pain. Advised patient to look around for other field instructor outside of local field instructor as she states that she would not be able to see him for another 3 to 4 months. [] - Physical Exam Vitals/I&O's: Vital Signs Temp Pulse Resp BP Pulse Ox 36.8 C 69 15 157/51 H 93 10/13/19 10:50 10/13/19 13:07 10/13/19 10:50 10/13/19 13:00 10/13/19 13:32 Oxygen Flow Rate (L/min) [5] 2 Oxygen Flow Rate (L/min) [4] 2 Oxygen Flow Rate (L/min) [3] 2 Oxygen Flow Rate (L/min) [2] 2 Oxygen Flow Rate (L/min) [1 ( 2 Initial Baseline)] Oxygen Flow Rate (L/min) 2 Oxygen Delivery Method [5] Nasal Cannula Oxygen Delivery Method [4] Nasal Cannula Oxygen Delivery Method [3] Nasal Cannula Oxygen Delivery Method [2] Nasal Cannula Oxygen Delivery Method [1 ( Nasal Cannula Initial Baseline)] Oxygen Delivery Method Room Air Weight: 89 kg Body Mass Index (BMI) 30.7 Finger Stick Blood Glucose 463 Orthostatic Vital Signs Start: 10/12/19 12:01 Freq: q24h Status: Active Protocol: Activity Type Activity Date Activity User E-Sign Co-Sign Detail Recorded Client Recorded Date Recorded By Document 10/12/19 12:01 BRENDA [id number] 10/12/19 12:04 BRENDA 10/12/19 12:01 Orthostatic Vitals Standing -Blood Pressure (90/60-120/80) 124/59 H -Extremity Use Right Arm -Pulse Rate (60-100) 78 Sitting -Blood Pressure (90/60-120/80) 146/73 H -Extremity Use Right Arm -Pulse Rate (60-100) 74 Lying -Blood Pressure (90/60-120/80) 160/68 H -Extremity Use Right Arm -Pulse Rate (60-100) 74 Intake and Output for Last 24 Hours 10/11/19 10/12/19 10/13/19 23:59 23:59 23:59 Intake Total 2735 / 2735 1120 / 1120 Output Total 600 / 600 Balance 2135 / 2135 1120 / 1120 General: Alert, Cooperative HEENT: Atraumatic, Normocephalic Abdomen: Non-Distended, Tender Microbiology Past 72 Hours 10/11/19 22:50 Stool C. difficile DNA Amplification - Final 10/11/19 12:00 Stool Enteric Bacteriology - Final 10/11/19 12:00 Stool Stool Lactoferrin - Final Laboratory Results 10/12/19 16:44: POC Glucose 214 H 10/12/19 21:42: POC Glucose 242 H 10/13/19 05:46: WBC 7.4, RBC 3.48 L, Hgb 10.2 L, Hct 31.9 L, MCV 91.7, MCH 29.3, MCHC 32.0, RDW Std Deviation 58.4 H, RDW Coeff of Jan 18.0 H, Plt Count 155, MPV 12.9 H, Immature Gran % (Auto) 1.400 H, Neut % (Auto) 62.3, Lymph % (Auto) 25.9, [place] % (Auto) 4.6, Eos % (Auto) 5.0, Baso % (Auto) 0.8, Absolute Neuts (auto) 4.6, Absolute Lymphs (auto) 1.92, Nucleated RBC % 0 10/13/19 05:46: Sodium 139, Potassium 4.1, Chloride 106, Carbon Dioxide 27.0, Anion Gap 6, BUN 13, Creatinine 1.26 H, Estim Creat Clear Calc 45.60, Est GFR (MDRD) Af Amer 56 L, Est GFR (MDRD) Non-Af 46 L, BUN/Creatinine Ratio 10.3, Glucose 218 H, Calcium 8.5, Total Bilirubin 0.50, AST 15, ALT 19, Alkaline Phosphatase 129 H, Total Protein 6.5, Albumin 2.7 L, Globulin 3.8, Albumin/Globulin Ratio 0.7 L 10/13/19 13:14: POC Glucose 200 H Discharge Diet: Low fat/ Low Cholesterol, 2000 mg Sodium Diet Discharge Activity: Return to Normal Activity Disposition: Home Minutes spent on discharge:: 35 Medical Necessity - Tobacco Use Smoking Status: Former smoker Tobacco Use: Non-smoker Meaningful Use Info Meaningful Use Diagnoses (Choose all that apply): None applicable Inpatient E&M: 90517 Disch Hosp
[2019-10-13] MEDS: Insulin Lispro 100 UNIT/ML INSULN.PEN 45 UNIT SC (13:15)
[2019-10-13] MEDS: Insulin Lispro 100 UNIT/ML INSULN.PEN SC (13:16)
[2019-10-13 13:40] LABS: Bedside Glucose 200 mg/dL (70-110)
--- NOTE | 2019-10-13 13:45 | CASEMGMT ---
Pt does not qualify for home oxygen at this time and pt was up in the halls walking independently without distress at this time. Tanna MOTA CM
--- NOTE | 2019-10-16 15:22 | CASEMGMT ---
SVETLANA RAINEY DC PHONE CALL DC DATE: 10/13/2019 DC DISPOSITION: Home DC DIAGNOSIS: Abdominal pain, Liver mass LACE/STRATA: 19/06 F/U APPTS MADE PRIOR TO DC: yes PRESCRIPTIONS ACQUIRED BY PT: yes Intro role of CM to patient via phone. Pt states she is doing well and did not have questions re: instructions, prescriptions or f/u. No care improvement suggestions were given. Marielena IVAN RN ACM
== END 2019-10-13 14:58 | disposition home or self-care (01) | DRG 74 ==
LOC: ED 11:42 → MS3 14:59 → PCU 10-11 16:08
PROVIDERS: Nurse Practitioner Family; Physician Assistant; Admitting Provider Internal Medicine; Emergency Provider Emergency Medicine; PCP Internal Medicine
DX: E11.43 Type 2 diabetes mellitus with diabetic autonomic (poly)neuropathy (principal); E44.1 Mild protein-calorie malnutrition; I13.0 Hypertensive heart and chronic kidney disease with heart failure and stage 1 through stage 4 chronic kidney disease, or unspecified chronic kidney disease; I50.32 Chronic diastolic (congestive) heart failure; K51.90 Ulcerative colitis, unspecified, without complications; I25.810 Atherosclerosis of coronary artery bypass graft(s) without angina pectoris; K31.84 Gastroparesis; K75.81 Nonalcoholic steatohepatitis (NASH); I95.1 Orthostatic hypotension; L40.50 Arthropathic psoriasis, unspecified; Z68.31 Body mass index [BMI] 31.0-31.9, adult; E11.22 Type 2 diabetes mellitus with diabetic chronic kidney disease; N18.3 Chronic kidney disease, stage 3 (moderate); D63.1 Anemia in chronic kidney disease; Z93.2 Ileostomy status; E11.42 Type 2 diabetes mellitus with diabetic polyneuropathy; E11.65 Type 2 diabetes mellitus with hyperglycemia; I27.21 Secondary pulmonary arterial hypertension; F41.8 Other specified anxiety disorders; G47.33 Obstructive sleep apnea (adult) (pediatric); E04.1 Nontoxic single thyroid nodule; E78.5 Hyperlipidemia, unspecified; J44.9 Chronic obstructive pulmonary disease, unspecified; M47.816 Spondylosis without myelopathy or radiculopathy, lumbar region; G89.29 Other chronic pain; Z90.49 Acquired absence of other specified parts of digestive tract; Z87.19 Personal history of other diseases of the digestive system; Z79.82 Long term (current) use of aspirin; Z79.899 Other long term (current) drug therapy; Z79.02 Long term (current) use of antithrombotics/antiplatelets; Z79.4 Long term (current) use of insulin; Z87.891 Personal history of nicotine dependence
CPT/HCPCS: 36415; 74177; 74250; 77012; 78452; 80048; 80053; 81001; 82962; 83630; 83690; 84484; 85025; 85027; 85610; 85730; 87493; 87506; 88307; 88313; 93005; 93017; 94640; 97162; 97166; 97802; 99156; 99157; 99251; 99284; A9500; J7030; J7040; Q9967; A4216; G0463; J2405; J2785

== ENCOUNTER → 2019-12-01 11:14 | Outpatient (CLI) | payer MEDICARE, MEDICAID, SELFPAY ==
[2019-06-22 12:51] VITALS: BMI 30.9
[2019-11-20 10:12] VITALS: BMI 30.4
[2019-12-01 12:16] LABS: Absolute Lymphocyte Count 1.79 X10^3/uL (0.83-4.51); Absolute Neutrophil Count 3.2 X10^3/uL (2.0-7.7); Basophil# 0.07 X10^3/uL; Basophil% 1.2 % (0-1); Eosinophil# 0.38 X10^3/uL; Eosinophils% 6.7 % (0-5); Hematocrit 40.5 % (37-47); Hemoglobin 12.8 g/dL (12.0-15.0); Lymphocyte # 1.79 X10^3/ul (4.0); Lymphocyte % 31.5 % (19-41); Mean Corp Hgb Conc 31.6 g/dL (32-36); Mean Corpuscular Hgb 28.5 pg (27.0-32.0); Mean Corpuscular Volume 90.2 fL (81-99); Mean Platelet Vol. 12.9 fl (6.2-12.0); Monocyte# 0.22 X10^3/uL; Monocyte% 3.9 % (0-10); NRBC Flagged by Analyzer 0 % (0-5); Neutrophil % 56.3 % (47-70); Platelet Count 162 K/mm3 (150-450); RBC Distribution Width CV 14.3 % (11.6-14.6); RBC Distribution Width SD 47.4 fl (35.1-43.9); Red Blood Count 4.49 M/mm3 (4.2-5.4); White Blood Count 5.7 K/mm3 (4.4-11.0)
[2019-12-01 12:24] LABS: ALB/GLOB Ratio 0.8 RATIO (0.9-2.4); AST(SGOT) 34 U/L (15-37); Alanine Aminotransfer ALT/SGPT 32 U/L (13-56); Albumin, Serum 3.3 g/dL (3.2-5.0); Alkaline Phosphatase 133 U/L (45-117); Anion Gap 7 (5-15); BUN 25 mg/dL (7-18); BUN/Creat Ratio 17.5 RATIO (10-20); CRP 4.43 mg/L (0.0-3.0); Calcium,Total 9.7 mg/dL (8.5-10.1); Chloride 108 mmol/L (98-107); Creatinine, Serum 1.43 mg/dL (0.55-1.02); EST Glomerular Filtration Rate 40 mL/min (>60); Est Glom Filt Rate - Afr Amer 48 mL/min (>60); Ferritin 129 ng/mL (8-252); Glucose 194 mg/dL (74-106); Protein, Total 7.3 g/dL (6.4-8.2); Sodium Level 140 mmol/L (136-145)
[2019-12-01 12:57] LABS: Hepatitis B Surface Antibody Non-Reactive; Hepatitis B Surface Antigen Non-Reactive (Nonreactive); Hepatitis C Antibody Non-Reactive (Nonreactive); Vitamin B12 339 pg/mL (211-911)
[2019-12-04 20:06] LABS: Ceruloplasmin 24.2 mg/dL (19.0-39.0); Endomysial Antibody IgA Negative (Negative); Immunoglobulin A 257 mg/dL (87-352)
[2019-12-04 21:36] LABS: AFP, Tumor Marker 1.5 ng/mL (0.0-8.3); Anti-Smooth Muscle ABS 4 Units (0-19); Carcinoembryonic Antigen 1.2 ng/mL (0.0-4.7); Hepatitis A IgM Antibody Negative (Negative); t-Transglutaminase IgA 2 U/mL (0-3)
== END ==
PROVIDERS: PCP Internal Medicine; Referring Provider Internal Medicine; Visit Provider Internal Medicine
DX: R16.0 Hepatomegaly, not elsewhere classified (principal); K85.10 Biliary acute pancreatitis without necrosis or infection; K31.84 Gastroparesis
CPT/HCPCS: 36415; 80053; 82105; 82378; 82390; 82607; 82728; 82784; 83516; 85025; 86140; 86255; 86706; 86709; 86803; 87340

== ENCOUNTER → 2019-12-06 10:36 | Outpatient (CLI) | payer MEDICARE, MEDICAID, SELFPAY ==
[2019-06-22 12:51] VITALS: BMI 30.9
[2019-11-14 10:25] VITALS: BMI 30.5
[2019-11-20 10:12] VITALS: BMI 30.4
--- NOTE | 2019-12-06 10:43 | BI_ITS ---
MAMMOGRAPHY - BILATERAL SCREENING REASON FOR EXAM: Female, 59 years old. Routine annual screening examination. PERTINENT HISTORY: Non-contributory. TECHNIQUE: Digital bilateral breast rosemary (3D mammographic acquisition) in the CC and MLO projections. 2-D mediolateral oblique (MLO) and craniocaudad (CC) views of both breasts were obtained. CAD: Full Field Digital Mammography with Computer Added Detection was performed. COMPARISON: Comparison is made with prior examination dated 09/25/2015. FINDINGS: Breast Composition: There are scattered areas of fibroglandular density. There are no dominant masses or suspicious calcifications. No other significant abnormalities are identified. There has been no significant change since the prior study. BI/SCREEN MAMM (CAD) W/ROSEMARY BILAT IMPRESSION: Stable bilateral screening mammogram. Yearly follow-up mammogram recommended. (A) ASSESSMENT CATEGORY: BIRADS Category 1: Negative. A letter regarding these results will be sent to the patient by the facility within 30 days. Approximately 10% of breast cancers are not detected by mammography. A normal mammogram should not delay biopsy of a clinically suspicious abnormality. [id number] Electronically Signed: Eric Spencer, at 12:22 EDT , Service support ,
== END ==
PROVIDERS: PCP Internal Medicine; Referring Provider Internal Medicine; Visit Provider Internal Medicine
DX: Z12.31 Encounter for screening mammogram for malignant neoplasm of breast (principal)
CPT/HCPCS: 77063; 77067

== ENCOUNTER → 2019-12-18 12:41 | Outpatient (CLI) | payer MEDICARE, MEDICAID, SELFPAY ==
[2019-06-22 10:59] VITALS: BMI 31.3
[2019-06-22 12:51] VITALS: BMI 30.9
[2019-11-20 10:12] VITALS: BMI 30.4
--- NOTE | 2019-12-18 14:20 | PFTCOMP_ITS ---
COMPLETE PULMONARY FUNCTION TEST INTERPRETATION Brief HPI: Patient is a 59 year old female, currently under the care of myself, who presents to [facility] [place] for complete pulmonary function tests secondary to diagnosis of COPD. Respiratory therapist reports good effort and reproducible results. Interpretation: Forced expiration spirometry shows no large airways obstructive ventilatory defect with an FEV1 of 70% predicted. There is no significant bronchodilator response by strict ATS criteria. Spirograms are of good quality and plateau normally. The respiratory flow volume loop shows decreased expiratory flow rates at high lung volumes consistent with small airways obstruction. Lung volumes by body plethysmography show a normal total lung capacity at 4.66 L, 85% predicted. All other lung volumes are within normal limits. Diffusion capacity by carbon monoxide is normal at 75% predicted. The airway resistance is elevated. Compared to previous pulmonary function tests from 06/02/2017, there is been a significant improvement in DLCO by 17%. Impression: Normalization of pulmonary function testing compared to previous study.
== END ==
PROVIDERS: PCP Internal Medicine; Referring Provider Internal Medicine Critical Care Medicine; Visit Provider Internal Medicine Critical Care Medicine
DX: I27.21 Secondary pulmonary arterial hypertension (principal)
CPT/HCPCS: 94060; 94726; 94729

== ENCOUNTER 2020-02-16 14:11 | Inpatient (IN) | payer MEDICARE, MEDICAID, SELFPAY ==
[2019-06-22 12:51] VITALS: BMI 30.9
[2020-01-17 11:04] VITALS: BMI 31.1
[2020-02-16] VITALS (16 sets, daily range): BP systolic 132–169; BP diastolic 64–88; PULSE 68–93; RESP 14–22; TEMP 35.8–37.1; O2SAT 91–98; BMI 30.5; BMI 30.2
--- NOTE | 2020-02-16 14:41 | EKG12_ITS ---
Test Reason : CP Blood Pressure : / mmHG Vent. Rate : 067 BPM Atrial Rate : 067 BPM P-R Int : 164 ms QRS Dur : 094 ms QT Int : 388 ms P-R-T Axes : 028 -15 124 degrees QTc Int : 409 ms Normal sinus rhythm Left ventricular hypertrophy Nonspecific ST and T wave abnormality Abnormal ECG Confirmed by COURTNEY DOMINGUEZ, NIXON ([id number]), video effects editor ISABELLA BUTLER ([id number]) on 02/21/2020 9:19:33 AM Referred By: JOSIAH Confirmed By:NIXON VALDEZ MD
--- NOTE | 2020-02-16 15:08 | RAD_ITS ---
STUDY: X-RAY CHEST REASON FOR EXAM: Female, 59 years old. C/O SOB, COUGH, WOLF, WEAKNESS,CP, LOW BLOOD SUGAR, FAMILY MEMBER TESTED POSITIVE COVID 11 DAYS PRIOR TECHNIQUE: Single AP portable view of the chest. COMPARISON: Comparison is made with prior study dated 07/28/2019. FINDINGS: EKG electrodes are seen. The lungs are clear and expanded. There is no demonstrated pleural abnormality. Sternal cerclage wires and vascular clips are present from a prior sternotomy and coronary artery bypass graft procedure (CABG). Normal mediastinum and marie. Normal visualized pulmonary arteries. There is atherosclerotic tortuosity of the aortic arch and descending thoracic aorta. Normal visualized thoracic spine. Normal visualized ribs, clavicles, and shoulders. There is no demonstrated abnormality of the visualized soft tissue structures of the upper abdomen. RAD/Chest 1 View (Portable) IMPRESSION: No acute abnormality is seen. Electronically Signed: Eric Spencer, at 15:30 EST , Service support ,
--- NOTE | 2020-02-16 15:18 | ED.DCSUM_ITS ---
History of Present Illness Chief Complaint: Shortness of Breath Informant: Patient Narrative: Patient is a 59-year-old female with a past medical history of COPD, CAD with stents and bypass, diabetes who presents to the emergency department for concerns for coronavirus. She did have a known positive at [facility]. She developed symptoms a week later. She not have a test and was presumed to be positive. She has been coughing and getting worsening shortness of breath. She is having some diarrhea although she does have an ileostomy and states that it is filling up very quickly. No vomiting. She has intermittent fevers and chills. She does get a burning sensation in her sternum as well. No significant abdominal pain. No swelling in her legs or pain in her calves. She was placed on prednisone and has 1 day left. She also completed a course of antibiotics for this. She is on insulin and states she is having difficulty keeping her blood sugars up she has not taken her insulin today. It has been as low as 60 today. Past Medical History - Allergies and Home Meds Allergies/Adverse Reactions: Allergies ciprofloxacin Allergy (Intermediate, Verified 02/16/20 14:15) Swelling cinnamon [Cinnamon] Allergy (Verified 02/16/20 14:15) Anaphylaxis Influenza Virus Vaccines Allergy (Verified 02/16/20 14:15) Shortness of breath liraglutide [From Victoza] Allergy (Verified 02/16/20 14:15) Anaphylaxis metronidazole [From Flagyl] Allergy (Verified 02/16/20 14:15) Hives Metronidazole HCl [From Flagyl] Allergy (Verified 02/16/20 14:15) Hives Penicillins Allergy (Verified 02/16/20 14:15) Hives Sulfa (Sulfonamide Antibiotics) Allergy (Verified 02/16/20 14:15) Hives codeine Adverse Reaction (Verified 02/16/20 14:15) Stops Ileostomy metformin HCl [From Glucophage] Adverse Reaction (Verified 02/16/20 14:15) Nausea ranolazine Adverse Reaction (Verified 02/16/20 14:15) Nausea/Vom/Diarrhea Jocxmxn-Jyt-Oiu Reductase Inhibitor Adverse Reaction (Verified 02/16/20 14:15) Nausea/joints ache Surgical History: angioplasty, coronary bypass surgery - Status post 12 stents, hysterectomy, - - 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, status post ileostomy, status post left arm surgery, status post ileostomy reversal, post sinus surgery Smoking Status: Former smoker - Family History Maternal Family History: Family History (Last Reviewed 12/26/19 @ 11:22 by Hollie Fulton MECHANICAL MANUFACTURING ENGINEER, MECHANICAL MANUFACTURING ENGINEER-C) Mother CVA (cerebral vascular accident) Diabetes Brother Heart disease Myocardial infarction Pancreatitis Father Cancer Lymphoma Grandmother Myocardial infarction Sister COPD (chronic obstructive pulmonary disease) Family History: Reports: Diabetes, Heart Disease, - - No autoimmune disease that she is aware of Paternal Family History: Family History (Last Reviewed 12/26/19 @ 11:22 by Hollie Fulton MECHANICAL MANUFACTURING ENGINEER, MECHANICAL MANUFACTURING ENGINEER-C) Mother CVA (cerebral vascular accident) Diabetes Brother Heart disease Myocardial infarction Pancreatitis Father Cancer Lymphoma Grandmother Myocardial infarction Sister COPD (chronic obstructive pulmonary disease) Family History: Reports: Cancer - Father has H/o lymphoma, - - No autoimmune disease that she is aware of Review of Systems All systems negative except as indicated General: Reports: Chills, Fever, Malaise. Denies: Sweats Eyes: Denies: Visual changes - bilaterally, Diplopia ENT: Denies: Rhinorrhea, Sore throat Cardiovascular: Reports: Chest pain. Denies: Palpitations Respiratory: Reports: Dyspnea, Cough, Dyspnea on exertion Gastrointestinal: Reports: Nausea, Diarrhea. Denies: Abdominal pain, Vomiting, Melena, Hematochezia Genitourinary: Denies: Dysuria, Hematuria, Frequency Musculoskeletal: Denies: Back pain, Extremity Pain Skin: Denies: Rash, Wounds Neurological: Reports: Headache. Denies: Weakness, Numbness Physical Exam Vital Signs/Narrative: Vital Signs Temp Pulse Resp BP Pulse Ox 02/16/20 14:56 97.2 F L 68 20 H 148/64 H 97 02/16/20 14:11 96.4 F L 74 22 H 132/71 H 91 General: Well nourished, Well developed, No Acute Distress Head: Normocephalic, Atraumatic Eyes: Perrl, EOMI ENT: Moist mucous membranes, No rhinorrhea Neck: Supple, Nontender Cardiovascular: Regular rate, Regular rhythm, No murmurs Respiratory: No distress, CTA bilaterally, Chest nontender Abdomen: Soft, Nontender, Nondistended, Normal bowel sounds Back: Nontender, Normal Inspection Extremities: Nontender, No edema. Negative for: Calf Tenderness Skin: Normal color, No rash Neurological: Alert, Oriented x3, Cranial nerves II-XII grossly intact, Normal Strength, Normal Sensation Psychological: Normal affect, Normal Mood Diagnostic/Tx/Re-eval Chest X-Ray - ED: - - One-view portable x-ray interpreted by myself. Previous sternotomy wires present. Clear lung corral bilaterally. Normal cardiac silhouette. Normal mediastinum. No pleural effusions. No acute cardiopulmonary abnormality. Agree with radiologist. - EKG Initial EKG Interpretation: - - Rate of 67 bpm and normal sinus rhythm. Normal intervals. Left axis deviation. There are some T wave inversions in the anterior/lateral leads. EKG for comparison was performed on October 122019 which has a similar appearance. - Medical Decision Making Patient presents to the ED for shortness of breath, cough with most likely coronavirus as she has had a known positive. On arrival to the emerge department she is mildly hypoxic requiring supplemental oxygen. Does have mild increased work of breathing. Basic lab work being obtained along with chest x- ray. Will complete coronavirus swab now. Patient's lab work did not reveal any significant acute abnormality. Her creatinine is mildly high but this is similar to her previous lab results. X- ray did not reveal any acute cardiopulmonary abnormality. Her coronavirus test did come back positive. Will treat with Decadron. We did attempt to ambulate the patient but desaturated to 84%. Will bring her in for further evaluation and management given her comorbidities. Patient is agreeable with this plan. She is on supplemental oxygen and resting well otherwise. ED Disposition - Plan for ED Patient: Disposition: Acute Care Hospital [facility] Diagnosis: Pneumonia due to COVID-19 virus, Hypoxia
[2020-02-16 15:33] LABS: Hematocrit 44.5 % (37-47); Hemoglobin 14.3 g/dL (12.0-15.0); Mean Corp Hgb Conc 32.1 g/dL (32-36); Mean Corpuscular Hgb 27.8 pg (27.0-32.0); Mean Corpuscular Volume 86.6 fL (81-99); Mean Platelet Vol. 11.8 fl (6.2-12.0); POSITIVE COUNT YES; POSITIVE MORPHOLOGY YES; Platelet Count 151 K/mm3 (150-450); RBC Distribution Width CV 13.8 % (11.6-14.6); RBC Distribution Width SD 44.2 fl (35.1-43.9); Red Blood Count 5.14 M/mm3 (4.2-5.4); White Blood Count 10.3 K/mm3 (4.4-11.0)
[2020-02-16 15:56] LABS: ALB/GLOB Ratio 0.5 RATIO (0.9-2.4); AST(SGOT) 23 U/L (15-37); Alanine Aminotransfer ALT/SGPT 25 U/L (13-56); Albumin, Serum 2.5 g/dL (3.2-5.0); Alkaline Phosphatase 130 U/L (45-117); Anion Gap 4 (5-15); BUN 31 mg/dL (7-18); BUN/Creat Ratio 22.6 RATIO (10-20); Calcium,Total 9.3 mg/dL (8.5-10.1); Chloride 105 mmol/L (98-107); Creatinine, Serum 1.37 mg/dL (0.55-1.02); EST Glomerular Filtration Rate 42 mL/min (>60); Est Glom Filt Rate - Afr Amer 50 mL/min (>60); Estimated Creatinine Clearance 41.93 ml/min; Globulin 5.1 g/dL (2.2-4.2); Glucose 92 mg/dL (74-106); Potassium 3.7 mmol/L (3.5-5.1); Protein, Total 7.6 g/dL (6.4-8.2); Sodium Level 138 mmol/L (136-145)
[2020-02-16 16:14] LABS: Differential Indicated MANUAL DIFF
--- NOTE | 2020-02-16 17:09 | HP.PCM_ITS ---
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 transplanted heart: [place] heart Qualified Code(s): I25.810 - Atherosclerosis of coronary artery bypass graft(s) without angina pectoris Comment: CABG x 4 JONES-LAD, SVG-D1, SVG-OM1, SVG-LPDA 05/18/2012 PCI-CLINTON mid D1 with a 2.25 x 12 Promus Synergy 01/12/2018 Mid LAD and Cx 08/30/2012, D1 and prox OM1 09/14/12, Prox SVG, Distal SVG to the Mid OM 10/31/2012 (11) Obstructive sleep apnea Status: Chronic Comment: Noncompliant (12) Hyperlipidemia Status: Chronic Qualifiers: Hyperlipidemia type: unspecified Qualified Code(s): E78.5 - Hyperlipidemia, unspecified History of Present Illness Date of Admission: 02/16/20 Chief Complaint: Shortness of breath, cough The patient is a 59 year old F with PMHx of Type 2 DM, hypertension, ANKITA, history of CAD status post CABG/stents, ulcerative colitis comes in with complaints of shortness of breath. Patient started having symptoms a week after [facility]. She was in contact with someone who was positive for Covid at [facility]. She however has been having progressive shortness of breath with diarrhea, low-grade fever, cough, and progressively getting weak. She also complains of substernal burning that has been progressively getting worse for past 1 week. Denies any lightheadedness or palpitation. Vitals in the ED showed temperature of 96.4F, heart rate 74, blood pressure 132/71, respiratory 22, SPO2 is 91% on room air. WBC count is 10.3, hemoglobin 14.2, platelet count 151, sodium 138, potassium 3.7, chloride 105, bicarbonate 29, BUN 31, creatinine 1.37, troponin 0.015. COVID-19 rapid antigen test is positive. Admitting chest x-ray showed no acute abnormality Past Medical History Past Medical History (Chronic Problems): Chronic Problems (Last Reviewed 12/26/19 @ 11:22 by Hollie Fulton ACADEMIC SUPPORT ASSISTANT, ACADEMIC SUPPORT ASSISTANT-C) Flu vaccine need (Chronic) Abdominal pain (Chronic) 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) Benign essential hypertension (Chronic) Diabetic gastroparesis (Chronic) Diabetes (Chronic) Secondary pulmonary arterial hypertension (Chronic) Chronic diastolic (congestive) heart failure (Chronic) BMI 31.0-31.9,adult (Chronic) Depression with anxiety (Chronic) Gastroenteritis (Chronic) Arthritis (Chronic) Essential (primary) hypertension (Chronic) Atherosclerosis of coronary artery bypass graft without angina pectoris (Chronic) CABG x 4 JONES-LAD, SVG-D1, SVG-OM1, SVG-LPDA 05/18/2012 PCI-CLINTON mid D1 with a 2.25 x 12 Promus Synergy 01/12/2018 Mid LAD and Cx 08/30/2012, D1 and prox OM1 09/14/12, Prox SVG, Distal SVG to the Mid OM 10/31/2012 COPD (chronic obstructive pulmonary disease) (Chronic) Anemia of chronic renal failure, stage 3 (moderate) (Chronic) Obstructive sleep apnea (Chronic) Noncompliant Right thyroid nodule (Chronic) 1.4 centimeter right sided nodule on CT scan Ulcerative colitis (Chronic) Hyperlipidemia (Chronic) DM2 (diabetes mellitus, type 2) (Chronic) Medical History: Medical History (Last Reviewed 12/26/19 @ 11:22 by Hollie Fulton ACADEMIC SUPPORT ASSISTANT, ACADEMIC SUPPORT ASSISTANT-C) Secondary pulmonary arterial hypertension (Chronic) I27.21 Chronic diastolic (congestive) heart failure (Chronic) I50.32 Depression with anxiety (Chronic) F41.8 Essential (primary) hypertension (Chronic) I10 Atherosclerosis of coronary artery bypass graft without angina pectoris (Chronic) I25.810 CABG x 4 JONES-LAD, SVG-D1, SVG-OM1, SVG-LPDA 05/18/2012 PCI-CLINTON mid D1 with a 2.25 x 12 Promus Synergy 01/12/2018 Mid LAD and Cx 08/30/2012, D1 and prox OM1 09/14/12, Prox SVG, Distal SVG to the Mid OM 10/31/2012 COPD (chronic obstructive pulmonary disease) (Chronic) J44.9 Anemia of chronic renal failure, stage 3 (moderate) (Chronic) N18.3, D63.1 Obstructive sleep apnea (Chronic) G47.33 Noncompliant Gastroparesis (Suspected) K31.84 Right thyroid nodule (Chronic) E04.1 1.4 centimeter right sided nodule on CT scan Ulcerative colitis (Chronic) K51.90 Hyperlipidemia (Chronic) E78.5 DM2 (diabetes mellitus, type 2) (Chronic) E11.9 CKD (chronic kidney disease) stage 3, GFR 30-59 ml/min N18.3 Chronic renal insufficiency N18.9 Depression F32.9 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 HTN (hypertension) I10 Hypertensive chronic kidney disease with stage 1 through stage 4 chronic kidney disease, or unspecified chronic kidney disease I12.9 Menieres disease H81.09 Psoriasis L40.9 Thyroid mass E07.9 Type 2 diabetes mellitus with diabetic polyneuropathy E11.42 Vertigo R42 Chronic respiratory failure J96.10 Lumbar back pain (Resolved) M54.5 Syncope R55 Allergies ciprofloxacin Allergy (Intermediate, Verified 02/16/20 14:15) Swelling cinnamon [Cinnamon] Allergy (Verified 02/16/20 14:15) Anaphylaxis Influenza Virus Vaccines Allergy (Verified 02/16/20 14:15) Shortness of breath liraglutide [From Victoza] Allergy (Verified 02/16/20 14:15) Anaphylaxis metronidazole [From Flagyl] Allergy (Verified 02/16/20 14:15) Hives Metronidazole HCl [From Flagyl] Allergy (Verified 02/16/20 14:15) Hives Penicillins Allergy (Verified 02/16/20 14:15) Hives Sulfa (Sulfonamide Antibiotics) Allergy (Verified 02/16/20 14:15) Hives codeine Adverse Reaction (Verified 02/16/20 14:15) Stops Ileostomy metformin HCl [From Glucophage] Adverse Reaction (Verified 02/16/20 14:15) Nausea ranolazine Adverse Reaction (Verified 02/16/20 14:15) Nausea/Vom/Diarrhea [place]-Hoy-Ehm Reductase Inhibitor Adverse Reaction (Verified 02/16/20 14:15) Nausea/joints ache Home Medications: Ambulatory Orders Medication Instructions Recorded Aspirin E.C. [Ecotrin] 81 mg PO DAILY 01/11/18 Baclofen [Lioresal] 10 mg PO QHS 06/30/18 venlafaxine 150 mg 150 mg PO DAILY #90 cap 09/06/18 capsule,extended release 24 hr tramadol 50 mg tablet 50 mg PO BID PRN PRN 05/03/19 buprenorphine 15 mcg/hour weekly 1 patch TRANSDERMAL SA 06/14/19 transdermal patch calcium acetate(phosphat bind) 667 667 mg PO BID #180 tab 07/06/19 mg tablet Insulin Lispro [Humalog Kwikpen 45 unit SQ TIDCM 10/10/19 U-200] Isosorbide DN [Isordil] 30 mg PO BID 10/10/19 Metoprolol Tartrate 25 mg PO BID 10/10/19 Metoprolol Tartrate 50 mg PO BID 10/10/19 traZODone [Desyrel] 50 mg PO QHS 10/10/19 metoclopramide HCl 5 mg tablet 5 mg PO DAILY PRN PRN tab 10/20/19 atorvastatin 80 mg tablet 80 mg PO QHS #90 tab 10/24/19 Adalimumab [Humira(Cf)] 40 mg SQ UD 02/16/20 Cholecalciferol (Vitamin D3) 2,000 unit PO DAILY 02/16/20 [Vitamin D3] Clopidogrel Bisulfate [Clopidogrel] 75 mg PO DAILY 02/16/20 Folic Acid 1 mg PO DAILY 02/16/20 Insulin Glargine,Hum.rec.anlog 100 unit SC QHS 02/16/20 [Lantus Solostar U-100 Insulin] Pantoprazole Sodium [Protonix] 40 mg PO DAILY 02/16/20 Pregabalin [Lyrica] 75 mg PO BID 02/16/20 Surgical History: Surgical History (Last Reviewed 12/26/19 @ 11:22 by Hollie Fulton ACADEMIC SUPPORT ASSISTANT, ACADEMIC SUPPORT ASSISTANT-C) H/O coronary artery bypass surgery (Resolved) Onset Date: 05/18/12 Z95.1 CABG x 4 JONES-LAD, SVG-D1, SVG-OM1, SVG-LPDA 05/18/2012 History of coronary artery stent placement (Resolved) Onset Date: 01/12/18 Z95.5 PCI-CLINTON mid D1 with a 2.25 x 12 Promus Synergy 01/12/2018 Mid LAD and Cx 08/30/2012, D1 and prox OM1 09/14/12, Prox SVG, Distal SVG to the Mid OM 10/31/2012 H/O sinus surgery Z98.890 Ileostomy status Z93.2 ABD abscess removal 09/18/2017 H/O colectomy Z98.890, Z90.49 H/O total hysterectomy Z98.890, Z90.710 History of cholecystectomy Z90.49 history closed fissure ileostomy left thumb surgery lysis of adhesion vestibular nerve surgery for Meniere's Surgical History: angioplasty, coronary bypass surgery - Status post 12 stents, hysterectomy, - - 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, status post ileostomy, status post left arm surgery, status post ileostomy reversal, post sinus surgery Psychiatric History: Anxiety, Depression 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 Smoking Status: Former smoker Tobacco Use: Non-smoker Alcohol: None Drugs: None - *Family History Maternal Family History: Family History (Last Reviewed 12/26/19 @ 11:22 by Hollie Fulton ACADEMIC SUPPORT ASSISTANT, ACADEMIC SUPPORT ASSISTANT-C) Mother CVA (cerebral vascular accident) Diabetes Brother Heart disease Myocardial infarction Pancreatitis Father Cancer Lymphoma Grandmother Myocardial infarction Sister COPD (chronic obstructive pulmonary disease) History Items: Diabetes, Heart Disease, - - No autoimmune disease that she is aware of Paternal Family History: Family History (Last Reviewed 12/26/19 @ 11:22 by Hollie Fulton ACADEMIC SUPPORT ASSISTANT, ACADEMIC SUPPORT ASSISTANT-C) Mother CVA (cerebral vascular accident) Diabetes Brother Heart disease Myocardial infarction Pancreatitis Father Cancer Lymphoma Grandmother Myocardial infarction Sister COPD (chronic obstructive pulmonary disease) History Items: Cancer - Father has H/o lymphoma, - - No autoimmune disease that she is aware of Review of Systems Constitutional: Reports: Anorexia, Malaise, Weakness, Fatigue. Denies: Chills, Fever, Weight Change HEENT: Denies: Difficulty Hearing, Difficulty Swallowing, Head Aches, Hearing Changes, Sinus Congestion, Sinus Drainage, Sore Throat Cardiovascular: Reports: Chest Pain. Denies: Claudication, Orthopnea, Palpitations Respiratory: Reports: Cough, Shortness of Breath, Shortness of breath at rest, Shortness of breath upon exertion, Sputum production. Denies: Hemoptysis Gastrointestinal: Reports: Diarrhea. Denies: Abdominal Pain, Constipation, Hematemesis, Hematochezia, Nausea, Vomiting Genitourinary: Denies: Dysuria, Frequency, Incontinence Musculoskeletal: Denies: Joint Pain, Joint stiffness, Joint swelling, Joint Te nderness Skin: Denies: Dryness, Rash, Skin Changes, Wounds Neurological: Denies: Numbness, Tingling, Focal weakness Psychiatric: Denies: Anxiety, Depression, Homicidal Ideations, Suicidal Ideations Hematologic/ Lymphatic: Denies: Easy Bruising, Easy Bleeding VTE Information - Inpt Only VTE Present on Admission: No VTE Pharm Prophylaxis ordered?: Yes Patient Problems: Active and Suspected Problems (Last Reviewed 12/26/19 @ 11:22 by Hollie Fulton ACADEMIC SUPPORT ASSISTANT, ACADEMIC SUPPORT ASSISTANT-C) COVID-19 virus infection (Acute) Pneumonia due to COVID-19 virus (Acute) Hypoxia (Acute) - Physical Exam Vitals/I&O's: Vital Signs Temp Pulse Resp BP Pulse Ox 97.2 F L 76 14 156/88 H 96 02/16/20 17:00 02/16/20 17:00 02/16/20 17:00 02/16/20 17:00 02/16/20 17:00 Oxygen Flow Rate (L/min) 2 Oxygen Delivery Method Nasal Cannula Weight: 88.451 kg Body Mass Index (BMI) 30.5 Finger Stick Blood Glucose 463 General: Alert, Oriented x3, Cooperative, - - She appears unwell, fatigued, on 2 L of oxygen HEENT: Atraumatic, PERRLA, EOMI, Normocephalic Oral: Moist Mucosa Neck: Supple Lungs: Diminished, Wheezes Cardiovascular: Regular rate, Regular Rhythm, Normal S1, Normal S2, No murmurs Abdomen: Bowel Sounds Present, Soft, Non Tender, Non-Distended, No Hepato- splenomegaly Extremities: No edema Skin: No rashes Musculoskeletal: No Tenderness to Palpation of Joints or Extremities Neurological: Cranial nerves II-XII grossly intact, Neuro grossly intact Psych/Mental Status: Normal Affect, Appropriate Microbiology Past 72 Hours 02/16/20 14:50 Mucosa - Nose SARS-CoV-2 Antigen (Rapid) - Final SARS-CoV-2 (COVID 19) Laboratory Results 02/16/20 14:55: WBC 10.3, RBC 5.14, Hgb 14.3, Hct 44.5, MCV 86.6, MCH 27.8, MCHC 32.1, RDW Std Deviation 44.2 H, RDW Coeff of Jan 13.8, Plt Count 151, MPV 11.8, Neut % (Auto) Not Reportable, Absolute Neuts (auto) Pending 02/16/20 14:55: Sodium 138, Potassium 3.7, Chloride 105, Carbon Dioxide 29.0, Anion Gap 4 L, BUN 31 H, Creatinine 1.37 H, Estim Creat Clear Calc 41.93, Est GFR (MDRD) Af Amer 50 L, Est GFR (MDRD) Non-Af 42 L, BUN/Creatinine Ratio 22.6 H , Glucose 92, Calcium 9.3, Total Bilirubin 0.60, AST 23, ALT 25, Alkaline Phosphatase 130 H, Troponin I < 0.015, Total Protein 7.6, Albumin 2.5 L, Globulin 5.1 H, Albumin/Globulin Ratio 0.5 L Assessment/Plan All Active Problems (Last Reviewed 12/26/19 @ 11:22 by Hollie Fulton ACADEMIC SUPPORT ASSISTANT, ACADEMIC SUPPORT ASSISTANT- C) COVID-19 virus infection (Acute) Pneumonia due to COVID-19 virus (Acute) Hypoxia (Acute) Pancreatitis (Resolved) H/O coronary artery bypass surgery (Resolved 05/18/12) History of coronary artery stent placement (Resolved 01/12/18) Abdominal pain (Resolved) Acute pancreatitis (Resolved) COPD exacerbation (Resolved) Chest pain (Resolved) Chest pain (Resolved) Hallucinations (Resolved) Hypokalemia (Resolved) Irritant dermatitis (Resolved) Lumbar back pain (Resolved) Multiple falls (Resolved) Sepsis (Resolved) Shortness of breath (Resolved) Surgical wound dehiscence (Resolved) 1. Acute COVID-19 infection with hypoxia, patient has had COVID-19 symptoms since around 02/03?02/04 Now progressively weak, short of breath. Patient is on 2 L of oxygen Continue with breathing treatments,po steroids, encourage use of incentive spirometer. Wean off oxygen for SPO2 more than 94% Continue on oral dexamethasone, start remdesivir 2. Acute diarrhea, underlining history of ulcerative colitis, status post ileostomy We will check stool for enteric panel Gentle IV fluids, repeat blood work in a.m. 3. Chest pain, burning in nature, atypical History of cardiac stents and CABG EKG showed anterior lateral leads T wave inversions, which is not new We will trend troponins, continue on aspirin and Plavix 4. Type II DM, on insulin, continue on home regimen as well as blood glucose checks with insulin sliding scale 5. Hypertension, controlled, on continue with home regimen 6. CAD status post CABG/stents/hyperlipidemia, continue aspirin, Plavix, statin 7. ANKITA/secondary pulmonary hypertension on CPAP 8. Anxiety/depression, continue on home trazodone and DEXA 9. DVT prophylaxis with Lovenox subcu 10. Code status: Full code I discussed and explained in details the various types of CODE STATUS-full code, DNR CCA, DNR CC. Patient want aggressive care. She chose full code. Time spent discussing CODE STATUS 16 minutes Inpatient E&M: 63776 Init Hosp L3 Procedures: 23666 Advncd Care Plan 30 Min
--- NOTE | 2020-02-16 17:15 | NURSING ---
MS2 COVID UNIT COVID, HYPOXIA PAINTSIL
[2020-02-16 17:16] LABS: Lymphocyte 19 % (19-41); Metamyelocyte 5 % (0-1); Monocyte 4 % (0-10); Neutrophil-Band 18 % (0-5); Neutrophil-Segmented 53 % (47-70); Plasma Cell 1 %; Total Cells Counted 100 (MANUAL DIFF)
[2020-02-16 17:18] LABS: Absolute Lymphocyte Count 1.96 X10^3/uL (0.83-4.51); Absolute Neutrophil Count 7.3 X10^3/uL (2.0-7.7); Lymphocyte # 1.96 X10^3/ul (4.0); Neutrophil # 7.31 X10^3/uL (2.7-7.7); Platelet Estimate ADEQUATE (ADEQ)
[2020-02-16 17:19] LABS: Red Cell Morphology NORM C+C NORMAL (NORM C&C)
[2020-02-16] MEDS: dexAMETHasone 10 MG/ML Vial IV (17:38)
[2020-02-16 20:16] LABS: D-Dimer Quantitative (DVT/PE) 0.55 FEU/ug/m (0.27-0.49)
[2020-02-16] MEDS: 0.9% Normal Saline 1,000 ML 75 ML IV (23:09)
[2020-02-16] MEDS: Metoprolol Tartrate 25 MG Tablet PO (23:17)
[2020-02-16] MEDS: Atorvastatin Calcium 80 MG Tablet PO (23:17)
[2020-02-16] MEDS: Baclofen 10 MG Tablet PO (23:17)
[2020-02-16] MEDS: Metoprolol Tartrate 50 MG Tablet PO (23:19)
[2020-02-16] MEDS: Isosorbide DN 30 MG Tablet PO (23:19)
[2020-02-16] MEDS: traZODone 50 MG Tablet PO (23:20)
[2020-02-16] MEDS: Enoxaparin 30 MG/0.3 ML Syringe SC (23:20)
[2020-02-16] MEDS: Insulin Lispro 100 UNIT/ML INSULN.PEN SC (23:23)
[2020-02-16] MEDS: Pregabalin 75 MG Capsule PO (23:28)
[2020-02-17] VITALS (12 sets, daily range): BP systolic 142–202; BP diastolic 76–89; PULSE 53–72; RESP 14–18; TEMP 36.3–37; O2SAT 92–97
[2020-02-17 00:16] LABS: Bedside Glucose 406 mg/dL (70-110)
[2020-02-17 03:32] LABS: Hematocrit 40.8 % (37-47); Hemoglobin 13.2 g/dL (12.0-15.0); Mean Corp Hgb Conc 32.4 g/dL (32-36); Mean Corpuscular Volume 86.6 fL (81-99); Mean Platelet Vol. 11.7 fl (6.2-12.0); POSITIVE COUNT YES; POSITIVE MORPHOLOGY YES; Platelet Count 144 K/mm3 (150-450); RBC Distribution Width CV 13.7 % (11.6-14.6); RBC Distribution Width SD 43.4 fl (35.1-43.9); Red Blood Count 4.71 M/mm3 (4.2-5.4); White Blood Count 7.8 K/mm3 (4.4-11.0)
[2020-02-17 03:38] LABS: Differential Indicated MANUAL DIFF
[2020-02-17 03:54] LABS: Total Cells Counted 100 (MANUAL DIFF)
[2020-02-17 03:59] LABS: Eosinophil 1 % (0-5); Lymphocyte 13 % (19-41); Monocyte 1 % (0-10); Neutrophil-Segmented 81 % (47-70)
[2020-02-17 04:00] LABS: Metamyelocyte 2 % (0-1); Neutrophil-Band 2 % (0-5)
[2020-02-17 04:01] LABS: Absolute Lymphocyte Count 1.01 X10^3/uL (0.83-4.51); Absolute Neutrophil Count 6.5 X10^3/uL (2.0-7.7); Lymphocyte # 1.01 X10^3/ul (4.0); Neutrophil # 6.46 X10^3/uL (2.7-7.7)
[2020-02-17 04:02] LABS: ALB/GLOB Ratio 0.4 RATIO (0.9-2.4); AST(SGOT) 15 U/L (15-37); Alanine Aminotransfer ALT/SGPT 22 U/L (13-56); Albumin, Serum 2.1 g/dL (3.2-5.0); Alkaline Phosphatase 122 U/L (45-117); Anion Gap 8 (5-15); BUN 34 mg/dL (7-18); BUN/Creat Ratio 24.5 RATIO (10-20); Calcium,Total 8.8 mg/dL (8.5-10.1); Chloride 107 mmol/L (98-107); Creatinine, Serum 1.39 mg/dL (0.55-1.02); EST Glomerular Filtration Rate 41 mL/min (>60); Est Glom Filt Rate - Afr Amer 50 mL/min (>60); Estimated Creatinine Clearance 41.33 ml/min; Globulin 4.7 g/dL (2.2-4.2); Glucose 309 mg/dL (74-106); Platelet Estimate ADEQUATE (ADEQ); Potassium 4.6 mmol/L (3.5-5.1); Protein, Total 6.8 g/dL (6.4-8.2); Sodium Level 137 mmol/L (136-145)
[2020-02-17 04:03] LABS: Red Cell Morphology NORM C+C NORMAL (NORM C&C)
[2020-02-17] MEDS: Insulin Lispro 100 UNIT/ML INSULN.PEN SC ×4 (08:44→22:01)
[2020-02-17] MEDS: Insulin Lispro 100 UNIT/ML INSULN.PEN 45 UNIT SC ×3 (08:45→18:06)
[2020-02-17] MEDS: Calcium Acetate 667 MG Capsule PO ×2 (08:54→18:06)
[2020-02-17] MEDS: dexAMETHasone 2 MG TABLET 6 MG PO (08:55)
[2020-02-17] MEDS: Folic Acid 1 MG Tablet PO (08:56)
[2020-02-17] MEDS: Venlafaxine XR 150 MG Capsule PO (08:56)
[2020-02-17] MEDS: Aspirin E.C. 81 MG Tablet PO (08:56)
[2020-02-17] MEDS: Isosorbide DN 30 MG Tablet PO ×2 (08:57→21:49)
[2020-02-17] MEDS: Enoxaparin 30 MG/0.3 ML Syringe SC ×2 (08:58→21:52)
[2020-02-17] MEDS: Clopidogrel Bisulfate 75 MG Tablet PO (08:59)
[2020-02-17] MEDS: Pregabalin 75 MG Capsule PO ×2 (08:59→21:53)
[2020-02-17] MEDS: Pantoprazole Sodium 40 MG Tablet PO (09:00)
[2020-02-17 09:10] LABS: Bedside Glucose 217 mg/dL (70-110)
[2020-02-17] MEDS: 0.9% Saline Lock 10 ML Syringe IV ×2 (11:06→21:54)
[2020-02-17] MEDS: Ondansetron 4 MG/2 ML Vial IV ×2 (11:07→21:54)
--- NOTE | 2020-02-17 12:23 | MRI_ITS ---
STUDY: MRI BRAIN WITHOUT CONTRAST REASON FOR EXAM: Female, 59 years old. diplopia, cva TECHNIQUE: Standardized multiplanar fat and water weighted pulse sequences were obtained. COMPARISON: None. FINDINGS: Normal size of the ventricles and extra-axial spaces for the patient''s age. There are a limited number of small white matter hyperintensities, distributed throughout the deep white matter tracts of the cerebral hemispheres, consistent with mild chronic white matter ischemic changes. There is no evidence for recent intracranial ischemia or other cause of cytotoxic edema on diffusion weighted imaging (DWI). Normal T2* images of the brain without demonstrated susceptibility artifact. There is no demonstrated hemosiderin stain. Normal bilateral basal ganglia. Normal thalami. There is no extra-axial fluid accumulation. Normal flow voids within the major intracranial circulation suggesting patency by spin echo criteria. Normal sella turcica, pituitary gland, infundibular stalk, optic chiasm and hypothalamus. Normal tectal plate and pineal gland. Normal midbrain, coty and medulla. Normal cerebellum. Normal basal cisterns. Normal bilateral temporal bones. Normal bilateral internal auditory canals. No demonstrated orbital abnormality, within the constraints of a routine brain study. Normal visualized paranasal sinuses. Normal calvarium and skull base. Normal visualized soft tissue structures. Normal visualized upper cervical spine. MRI/Brain without Contrast IMPRESSION: No evidence of acute intracranial bleed, mass or ischemia. Electronically Signed: Cordell Singh DO at 11:55 EST , Service support ,
--- NOTE | 2020-02-17 12:23 | MRI_ITS ---
STUDY: MRA NECK WITH AND WITHOUT CONTRAST REASON FOR EXAM: Female, 59 years old. cva TECHNIQUE: 3-D jgki-gh-nukuze (TOF) imaging was performed in an 1.5 T MRI scanner. DOTAREM 20 ML was administered for the contrast enhanced images. COMPARISON: None. FINDINGS: RIGHT CAROTID ARTERIES: Normal right common carotid artery (CCA). There is narrowing of the right carotid bulb lumen extending to the proximal ICA likely secondary to atherosclerotic plaque. Normal origin of the right internal carotid (ICA) artery without a hemodynamically significant stenosis. Normal visualized cervical portion of the right internal carotid artery. Normal origin of the right external carotid artery (ECA). LEFT CAROTID ARTERIES: Normal left common carotid artery (CCA). Normal left common carotid bulb. There is mild narrowing of the proximal left ICA. Normal visualized cervical portion of the left internal carotid artery. Normal origin of the left external carotid artery (ECA). VERTEBRAL ARTERIES: Normal antegrade flow within the bilateral vertebral artery without a hemodynamically significant stenosis. MRI/MRA Neck WITH and W/O Contrast IMPRESSION: 1. Moderate to severe narrowing of the right carotid bulb and proximal right ICA approximately 50-70%. 2. Mild narrowing of the proximal left ICA less than 50%. Electronically Signed: Cordell Singh DO at 12:02 EST , Service support ,
--- NOTE | 2020-02-17 12:23 | MRI_ITS ---
STUDY: MRA OF THE HEAD WITHOUT CONTRAST REASON FOR EXAM: Female, 59 years old. diplopia TECHNIQUE: 3-D xqte-xd-omeceo (TOF) imaging was performed with MIPs. The study was performed unenhanced. COMPARISON: None. FINDINGS: Normal bilateral petrous carotid arteries. Normal right cavernous carotid artery with a normal supraclinoid bifurcation. Normal left cavernous carotid artery with a normal supraclinoid bifurcation. There is non-visualization of the right A1 segment of the anterior cerebral arteries consistent with either aplastic development or an occlusion. Normal left A1 segments of the anterior cerebral artery. Normal intact anterior communicating artery (ACOM). Normal bilateral A2 segments of the anterior cerebral arteries. Normal right M1 and M2 segments of the middle cerebral arteries, with a normal M1 bifurcation. Normal left M1 and M2 segments of the middle cerebral arteries, with a normal M1 bifurcation. There is non-visualization of the right posterior communicating artery (PCOM). There is non-visualization of the left posterior communicating artery (PCOM). Normal bilateral vertebral arteries. Normal basilar artery with a normal basilar bifurcation. The visualized bilateral superior cerebellar (SCA) arteries are normal. Normal bilateral P1, P2 and visualized P3 segments of the posterior cerebral arteries. There is no demonstrated aneurysm of the [place]. There is no major vessel occlusion or hemodynamically significant stenosis. There is no demonstrated abnormality of the visualized brain. MRI/MRA Head ONLY without Contrast IMPRESSION: 1. Nonvisualized right A1 segment with differential including congenital absence versus chronic occlusion not excluded. Otherwise no evidence of significant steno-occlusive disease or aneurysm. Electronically Signed: Cordell Singh DO at 11:57 EST , Service support ,
--- NOTE | 2020-02-17 12:30 | PCM.PN.HOSP ---
Patient Problems: Active and Suspected Problems (Last Reviewed 12/26/19 @ 11:22 by Hollie Fulton LASER PRINT OPERATOR, LASER PRINT OPERATOR-C) COVID-19 virus infection (Acute) Pneumonia due to COVID-19 virus (Acute) Hypoxia (Acute) Reason for Visit: COVID 19 Subjective: Complains of diplopia since she has been ill. Dizziness. Objective: 94% on RA at rest. Ambulated in room on room air and she dropped to 85% and was tachypneic. Vitals/I&O's: Vital Signs Temp Pulse Resp BP Pulse Ox 36.4 C L 54 L 18 151/82 H 94 02/17/20 08:36 02/17/20 08:58 02/17/20 08:36 02/17/20 08:36 02/17/20 08:40 Oxygen Flow Rate (L/min) 2 Oxygen Delivery Method Nasal Cannula Weight: 87.1 kg Body Mass Index (BMI) 30.2 Finger Stick Blood Glucose 463 Intake and Output for Last 24 Hours 02/15/20 02/16/20 02/17/20 23:59 23:59 23:59 Intake Total 758.75 / 758.75 Balance 758.75 / 758.75 General: Alert, No apparent distress HEENT: Atraumatic, EOMI, Normocephalic Oral: Moist Mucosa, No Gingival or Mucosal Lesions/ Ulcerations Neck: No Nodes, Thyroid Normal Size and Texture Lungs: Clear to auscultation, Normal air movement, No rhonchi, No wheeze, No rales Cardiovascular: Regular rate, Regular Rhythm, Normal S1, Normal S2, No murmurs Abdomen: Bowel Sounds Present, Soft, Non Tender, Non-Distended, No Hepato-splenomegaly Extremities: No edema, No Calf Tenderness Skin: No rashes, No breakdown Neurological: Cranial nerves II-XII grossly intact, Motor Exam 5/5 strength throughout, Coordination normal, - - Impaired peripheral vision in all [place] though this may be combined by the patient's diplopia. Psych/Mental Status: Normal Affect, Appropriate Microbiology Past 72 Hours 02/16/20 23:00 Stool Enteric Bacteriology - Final 02/16/20 20:50 Mucosa - Nasopharyngeal Respiratory Panel (PCR) - Final 02/16/20 14:50 Mucosa - Nose SARS-CoV-2 Antigen (Rapid) - Final SARS-CoV-2 (COVID 19) Laboratory Results 02/16/20 14:55: WBC 10.3, RBC 5.14, Hgb 14.3, Hct 44.5, MCV 86.6, MCH 27.8, MCHC 32.1, RDW Std Deviation 44.2 H, RDW Coeff of Jan 13.8, Plt Count 151, MPV 11.8, Neut % (Auto) Not Reportable, Absolute Neuts (auto) 7.3, Absolute Lymphs (auto) 1.96, Total Counted 100, Neutrophils % (Manual) 53, Band Neutrophils % 18 H, Lymphocytes % (Manual) 19, Monocytes % (Manual) 4, Metamyelocytes % 5 H, Plasma Cell % (Manual) 1, Diff Path Review July, Platelet Estimate ADEQUATE, RBC Morphology NORM C+C 02/16/20 14:55: Sodium 138, Potassium 3.7, Chloride 105, Carbon Dioxide 29.0, Anion Gap 4 L, BUN 31 H, Creatinine 1.37 H, Estim Creat Clear Calc 41.93, Est GFR (MDRD) Af Amer 50 L, Est GFR (MDRD) Non-Af 42 L, BUN/Creatinine Ratio 22.6 H, Glucose 92, Calcium 9.3, Total Bilirubin 0.60, AST 23, ALT 25, Alkaline Phosphatase 130 H, Troponin I < 0.015, Total Protein 7.6, Albumin 2.5 L, Globulin 5.1 H, Albumin/Globulin Ratio 0.5 L 02/16/20 14:55: D-Dimer Quant (PE/DVT) 0.55 H* 02/16/20 14:55: B-Natriuretic Peptide 26.0 02/16/20 21:30: Troponin I < 0.015 02/16/20 22:58: POC Glucose 406 H 02/17/20 00:10: Troponin I < 0.015 02/17/20 03:20: WBC 7.8, RBC 4.71, Hgb 13.2, Hct 40.8, MCV 86.6, MCH 28.0, MCHC 32.4, RDW Std Deviation 43.4, RDW Coeff of Jan 13.7, Plt Count 144 L, MPV 11.7, Neut % (Auto) Not Reportable, Absolute Neuts (auto) 6.5, Absolute Lymphs (auto) 1.01, Total Counted 100, Neutrophils % (Manual) 81 H, Band Neutrophils % 2, Lymphocytes % (Manual) 13 L, Monocytes % (Manual) 1, Eosinophils % (Manual) 1, Metamyelocytes % 2 H, Diff Path Review July, Platelet Estimate ADEQUATE, RBC Morphology NORM C+C 02/17/20 03:20: Sodium 137, Potassium 4.6, Chloride 107, Carbon Dioxide 22.0, Anion Gap 8, BUN 34 H, Creatinine 1.39 H, Estim Creat Clear Calc 41.33, Est GFR (MDRD) Af Amer 50 L, Est GFR (MDRD) Non-Af 41 L, BUN/Creatinine Ratio 24.5 H, Glucose 309 H, Calcium 8.8, Total Bilirubin 0.40, AST 15, ALT 22, Alkaline Phosphatase 122 H, Total Protein 6.8, Albumin 2.1 L, Globulin 4.7 H, Albumin/Globulin Ratio 0.4 L 02/17/20 03:20: Troponin I < 0.015 02/17/20 08:33: POC Glucose 217 H Current Medications Acetaminophen (Acetaminophen 325 Mg Tablet) 650 mg PO Q6H PRN PRN PRN Reason: Pain Score 1-10/Temp > 100.7 F Al Hydroxide/Mg Hydroxide (Mag Hydrox/Al Hydrox/Simeth 30 Ml Udc) 30 ml PO Q6H PRN PRN PRN Reason: Gastric Burning Albuterol Sulfate (Albuterol Sulfate 8gm 60 Dose Inhaler (Floor Use-With Spacer)) 1 [facility] Last Admin: 02/17/20 10:56 Dose: 1 puff Documented by: Albuterol Sulfate (Albuterol Sulfate 8gm 60 Dose Inhaler (Floor Use-With Spacer)) 1 puff INHALATION Q4H PRN PRN PRN Reason: SOB/WHEEZING Aspirin (Aspirin E.C. 81 Mg Tablet) 81 mg PO DAILY [facility] Last Admin: 02/17/20 08:56 Dose: 81 mg Documented by: Atorvastatin Calcium (Atorvastatin Calcium 80 Mg Tablet) [facility] Last Admin: 02/16/20 23:17 Dose: 80 mg Documented by: Baclofen (Baclofen 10 Mg Tablet) 10 mg PO QHS [facility] Last Admin: 02/16/20 23:17 Dose: 10 mg Documented by: Calcium Acetate (Calcium Acetate 667 Mg Capsule) [facility] Last Admin: 02/17/20 08:54 Dose: 667 mg Documented by: Cholecalciferol (Cholecalciferol (Vit D3) 1,000 Unit (25mcg)) 2,000 unit PO DAILY [facility] Last Admin: 02/17/20 10:56 Dose: 2,000 unit Documented by: Clopidogrel Bisulfate (Clopidogrel Bisulfate 75 Mg Tablet) 75 mg PO DAILY [facility] Last Admin: 02/17/20 08:59 Dose: 75 mg Documented by: Dexamethasone (Dexamethasone 2 Mg Tablet) 6 mg PO DAILY [facility] Last Admin: 02/17/20 08:55 Dose: 6 mg Documented by: Dextrose (Dextrose 50%-Water 25 Gm/50 Ml Disp.Syrin) 0 gm IV X1 PRN; Protocol PRN Reason: Hypoglycemia Enoxaparin Sodium (Enoxaparin 30 Mg/0.3 Ml Syringe) 30 mg SC BID [facility] Last Admin: 02/17/20 08:58 Dose: 30 mg Documented by: Folic Acid (Folic Acid 1 Mg Tablet) 1 mg PO DAILY [facility] Last Admin: 02/17/20 08:56 Dose: 1 mg Documented by: Glucagon (Glucagon 1 Mg/Ml Syringe) 1 mg IM .X1 PRN PRN Reason: Hypoglycemia Hydralazine HCl (Hydralazine 20 Mg/Ml Vial) 5 mg IV Q30M PRN PRN Reason: to maintain BP goals Remdesivir 100 mg/ Sodium (Chloride) 250 mls @ 125 mls/hr IV DAILY [facility] Stop: 02/20/20 11:59 Last Admin: 02/17/20 10:57 Dose: 125 mls/hr Documented by: Sodium Chloride () 250 mls @ 15 mls/hr IV .[id number] PRN PRN Reason: Saline Flush Sodium Chloride () 250 mls @ 15 mls/hr IV .[id number] PRN PRN Reason: Additional IVPB Infusion Sodium Chloride () 1,000 mls @ 75 mls/hr IV .[id number] [facility] Stop: 02/17/20 15:39 Last Infusion: 02/17/20 05:56 Dose: 75 mls/hr Documented by: Insulin Glargine (Insulin Glargine 100 Units/Ml Pen) 100 units SC QHS [facility] Last Admin: 02/16/20 23:21 Dose: 100 unit Documented by: Insulin Human Lispro (Insulin Lispro 100 Unit/Ml Insuln.Pen) 0 unit SC ACHS [facility]; Protocol Last Admin: 02/17/20 12:17 Dose: 1 units Documented by: Insulin Human Lispro (Insulin Lispro 100 Unit/Ml Insuln.Pen) 45 unit SC TIDCM [facility] Last Admin: 02/17/20 12:18 Dose: 45 units Documented by: Iopamidol (Contrast Allergy Safety Check) 0 ml IV X1 [facility] Isosorbide Dinitrate (Isosorbide Dn 30 Mg Tablet) 30 mg PO BID [facility] Last Admin: 02/17/20 08:57 Dose: 30 mg Documented by: Labetalol HCl (Labetalol (Prefilled) 20 Mg/4 Ml) 10 - 20 mg IV Q10M PRN PRN PRN Reason: to Maintain BP Goals Metoprolol Tartrate (Metoprolol Tartrate 25 Mg Tablet) 25 mg PO BID [facility] Last Admin: 02/17/20 08:57 Dose: Not Given Documented by: Metoprolol Tartrate (Metoprolol Tartrate 50 Mg Tablet) 50 mg PO BID [facility] Last Admin: 02/17/20 08:58 Dose: Not Given Documented by: Miscellaneous Information (Inhaler, Assist Devices 1 Each Spacer) 1 each INHALATION Q4HWA [facility] Last Admin: 02/17/20 05:20 Dose: Not Given Documented by: Nitroglycerin (Nitroglycerin (Inpatient Use) 0.4 Mg Tab.Subl) 0.4 mg SUBLINGUAL Q5M PRN PRN Reason: CARDIAC/CHEST PAIN Non-Formulary Medication (Buprenorphine) 1 patch transdermal [facility] Ondansetron HCl (Ondansetron 4 Mg/2 Ml Vial) 4 mg IV Q8H PRN PRN PRN Reason: NAUSEA/VOMITING Last Admin: 02/17/20 11:07 Dose: 4 mg Documented by: Pantoprazole Sodium (Pantoprazole Sodium 40 Mg Tablet) 40 mg PO DAILY [facility] Last Admin: 02/17/20 09:00 Dose: 40 mg Documented by: Pregabalin (Pregabalin 75 Mg Capsule) 75 mg PO BID [facility] Last Admin: 02/17/20 08:59 Dose: 75 mg Documented by: Psyllium Hydrophilic Mucilloid (Psyllium 1 Packet) 1 packet PO DAILY PRN PRN PRN Reason: Constipation Sodium Chloride (0.9% Saline Lock 10 Ml Syringe) 10 - 40 ml IV UD PRN PRN Reason: SALINE FLUSH Last Admin: 02/17/20 11:06 Dose: 10 ml Documented by: Trazodone HCl (Trazodone 50 Mg Tablet) 50 mg PO QHS [facility] Last Admin: 02/16/20 23:20 Dose: 50 mg Documented by: Venlafaxine HCl (Venlafaxine Xr 150 Mg Capsule) 150 mg PO DAILY [facility] Last Admin: 02/17/20 08:56 Dose: 150 mg Documented by: STROKE Vital Signs/Narrative: Vital Signs Temp Pulse Resp BP Pulse Ox 02/17/20 08:58 54 L 02/17/20 08:57 54 L 02/17/20 08:40 94 02/17/20 08:36 36.4 C L 54 L 18 151/82 H 95 Medical Necessity - Tobacco Use Smoking Status: Former smoker Tobacco Use: Non-smoker Assessment/Plan All Active Problems (Last Reviewed 12/26/19 @ 11:22 by Hollie Fulton LASER PRINT OPERATOR, LASER PRINT OPERATOR-C) COVID-19 virus infection (Acute) Pneumonia due to COVID-19 virus (Acute) Hypoxia (Acute) Pancreatitis (Resolved) H/O coronary artery bypass surgery (Resolved 05/18/12) History of coronary artery stent placement (Resolved 01/12/18) Abdominal pain (Resolved) Acute pancreatitis (Resolved) COPD exacerbation (Resolved) Chest pain (Resolved) Chest pain (Resolved) Hallucinations (Resolved) Hypokalemia (Resolved) Irritant dermatitis (Resolved) Lumbar back pain (Resolved) Multiple falls (Resolved) Sepsis (Resolved) Shortness of breath (Resolved) Surgical wound dehiscence (Resolved) 1. acute COVID 19 pneumonia has been ill for 2 weeks. time of onset around 02/04. continue dex and rem monitor labs. 2. acute hypoxic respiratory insuffiency 2/2 COVID wean oxygen as tolerated, at this time, requires oxygen with activity 3. Diplopia CVA work up (MRI, MRA, echo, etc.) Consult SOC upon completion already on DAPT and HIS 4. CAD stable 5. DM2 uncontrolled certainly exacerbated by steroids check a1c continue glargine, SSI and scheduled log 6. VTE prophylaxis: LMWH Inpatient E&M: 37622 Subs Hosp L3
[2020-02-17 12:35] LABS: Bedside Glucose 210 mg/dL (70-110)
--- NOTE | 2020-02-17 14:00 | CASEMGMT ---
RN CM Note: Assessment deferred today. Stroke workup started and patient transferred to PCU. Marielena IVAN RN ACM
[2020-02-17] MEDS: 0.9% Normal Saline 1,000 ML 75 ML IV (15:00)
[2020-02-17 16:36] LABS: Bedside Glucose 192 mg/dL (70-110)
[2020-02-17] MEDS: Acetaminophen 325 MG Tablet 650 MG PO (18:12)
[2020-02-17] MEDS: Baclofen 10 MG Tablet PO (21:49)
[2020-02-17] MEDS: Atorvastatin Calcium 80 MG Tablet PO (21:49)
[2020-02-17] MEDS: traZODone 50 MG Tablet PO (21:49)
[2020-02-17] MEDS: Metoprolol Tartrate 50 MG Tablet PO (21:52)
[2020-02-17] MEDS: Metoprolol Tartrate 25 MG Tablet PO (21:52)
[2020-02-17 22:20] LABS: Bedside Glucose 318 mg/dL (70-110)
[2020-02-18] VITALS (13 sets, daily range): BP systolic 143–189; BP diastolic 69–80; PULSE 46–64; RESP 16–18; TEMP 36.4–36.9; O2SAT 93–96
[2020-02-18] MEDS: Acetaminophen 325 MG Tablet 650 MG PO (02:13)
[2020-02-18 06:32] LABS: Absolute Neutrophil Count 9.9 X10^3/uL (2.0-7.7); Basophil# 0.05 X10^3/uL; Basophil% 0.4 % (0-1); Hemoglobin 12.4 g/dL (12.0-15.0); Lymphocyte % 13.4 % (19-41); Mean Corp Hgb Conc 32.6 g/dL (32-36); Mean Corpuscular Volume 85.8 fL (81-99); Mean Platelet Vol. 11.6 fl (6.2-12.0); Monocyte# 0.43 X10^3/uL; Monocyte% 3.4 % (0-10); NRBC Flagged by Analyzer 0 % (0-5); Neutrophil # 9.89 X10^3/uL (2.7-7.7); Neutrophil % 77.9 % (47-70); Platelet Count 154 K/mm3 (150-450); RBC Distribution Width CV 13.3 % (11.6-14.6); RBC Distribution Width SD 42.4 fl (35.1-43.9); Red Blood Count 4.43 M/mm3 (4.2-5.4); White Blood Count 12.7 K/mm3 (4.4-11.0)
[2020-02-18 07:25] LABS: ALB/GLOB Ratio 0.5 RATIO (0.9-2.4); AST(SGOT) 14 U/L (15-37); Alanine Aminotransfer ALT/SGPT 19 U/L (13-56); Albumin, Serum 2.1 g/dL (3.2-5.0); Alkaline Phosphatase 115 U/L (45-117); Anion Gap 5 (5-15); BUN 35 mg/dL (7-18); BUN/Creat Ratio 31.2 RATIO (10-20); Calcium,Total 8.4 mg/dL (8.5-10.1); Chloride 112 mmol/L (98-107); Cholesterol 149 mg/dL (200); Creatinine, Serum 1.12 mg/dL (0.55-1.02); EST Glomerular Filtration Rate 53 mL/min (>60); Est Glom Filt Rate - Afr Amer 64 mL/min (>60); Globulin 4.3 g/dL (2.2-4.2); Glucose 120 mg/dL (74-106); High Density Lipoprotein 73 mg/dL; Potassium 4.5 mmol/L (3.5-5.1); Protein, Total 6.4 g/dL (6.4-8.2); Sodium Level 140 mmol/L (136-145); Triglycerides 70 mg/dL; Very Low Density Lipoprotein 14 mg/dL (5-40)
[2020-02-18 07:59] LABS: Hemoglobin A1c 7.5 % (3.8-5.6)
[2020-02-18] MEDS: Insulin Lispro 100 UNIT/ML INSULN.PEN 45 UNIT SC ×3 (08:07→17:59)
[2020-02-18] MEDS: Calcium Acetate 667 MG Capsule PO ×2 (08:08→17:59)
[2020-02-18 08:15] LABS: Bedside Glucose 117 mg/dL (70-110)
[2020-02-18] MEDS: Clopidogrel Bisulfate 75 MG Tablet PO (09:35)
[2020-02-18] MEDS: Aspirin E.C. 81 MG Tablet PO (09:35)
[2020-02-18] MEDS: Metoprolol Tartrate 25 MG Tablet PO ×2 (09:35→21:41)
[2020-02-18] MEDS: Venlafaxine XR 150 MG Capsule PO (09:35)
[2020-02-18] MEDS: dexAMETHasone 2 MG TABLET 6 MG PO (09:35)
[2020-02-18] MEDS: Pantoprazole Sodium 40 MG Tablet PO (09:35)
[2020-02-18] MEDS: Enoxaparin 30 MG/0.3 ML Syringe SC ×2 (09:38→21:41)
[2020-02-18] MEDS: Pregabalin 75 MG Capsule PO ×2 (09:38→21:42)
[2020-02-18] MEDS: Isosorbide DN 30 MG Tablet PO ×2 (09:38→21:40)
[2020-02-18] MEDS: Metoprolol Tartrate 50 MG Tablet PO ×2 (09:38→21:41)
[2020-02-18] MEDS: Folic Acid 1 MG Tablet PO (09:38)
[2020-02-18] MEDS: Insulin Lispro 100 UNIT/ML INSULN.PEN SC ×3 (12:33→21:52)
--- NOTE | 2020-02-18 14:02 | PN_ITS ---
Patient Problems: Active and Suspected Problems (Last Reviewed 12/26/19 @ 11:22 by Hollie Fulton PLANT PROTECTION SUPERVISOR, PLANT PROTECTION SUPERVISOR-C) COVID-19 virus infection (Acute) Pneumonia due to COVID-19 virus (Acute) Hypoxia (Acute) Reason for Visit: COVID 19 Subjective: Still with diplopia. States she can read fine when covering one eye. Still with shortness of breath. Vitals/I&O's: Vital Signs Temp Pulse Resp BP Pulse Ox 36.5 C L 59 L 18 143/69 H 95 02/18/20 09:44 02/18/20 09:44 02/18/20 09:44 02/18/20 09:44 02/18/20 09:44 Oxygen Flow Rate (L/min) 2 Oxygen Delivery Method Nasal Cannula Weight: 87.1 kg Body Mass Index (BMI) 30.2 Finger Stick Blood Glucose 463 Intake and Output for Last 24 Hours 02/16/20 02/17/20 02/18/20 23:59 23:59 23:59 Intake Total 2173.75 / 2393.75 1006.25 / 1006.25 Balance 2173.75 / 2393.75 1006.25 / 1006.25 General: Alert, No apparent distress HEENT: Atraumatic, EOMI, Normocephalic Oral: Moist Mucosa, No Gingival or Mucosal Lesions/ Ulcerations Neck: No Nodes, Thyroid Normal Size and Texture Lungs: Normal air movement, - - bibasilar crackles. Cardiovascular: Regular rate, Regular Rhythm, Normal S1, Normal S2, No murmurs Abdomen: Bowel Sounds Present, Soft, Non Tender, Non-Distended, No Hepato-splenomegaly Extremities: No edema, No Calf Tenderness Psych/Mental Status: Normal Affect, Appropriate Microbiology Past 72 Hours 02/16/20 23:00 Stool Enteric Bacteriology - Final 02/16/20 20:50 Mucosa - Nasopharyngeal Respiratory Panel (PCR) - Final 02/16/20 14:50 Mucosa - Nose SARS-CoV-2 Antigen (Rapid) - Final SARS-CoV-2 (COVID 19) Laboratory Results 02/17/20 16:30: POC Glucose 192 H 02/17/20 22:01: POC Glucose 318 H 02/18/20 06:23: Sodium 140, Potassium 4.5, Chloride 112 H, Carbon Dioxide 23.0, Anion Gap 5, BUN 35 H, Creatinine 1.12 H, Estim Creat Clear Calc 51.30, Est GFR (MDRD) Af Amer 64, Est GFR (MDRD) Non-Af 53 L, BUN/Creatinine Ratio 31.2 H, Glucose 120 H, Calcium 8.4 L, Total Bilirubin 0.30, AST 14 L, ALT 19, Alkaline Phosphatase 115, Total Protein 6.4, Albumin 2.1 L, Globulin 4.3 H, Albumin/Globulin Ratio 0.5 L, Triglycerides 70, Cholesterol 149, LDL Cholesterol 62, VLDL Cholesterol 14, HDL Cholesterol 73 02/18/20 06:23: WBC 12.7 H, RBC 4.43, Hgb 12.4, Hct 38.0, MCV 85.8, MCH 28.0, MCHC 32.6, RDW Std Deviation 42.4, RDW Coeff of Jan 13.3, Plt Count 154, MPV 11.6, Immature Gran % (Auto) 4.900 H, Neut % (Auto) 77.9 H, Lymph % (Auto) 13.4 L, [place] % (Auto) 3.4, Eos % (Auto) 0.0, Baso % (Auto) 0.4, Absolute Neuts (auto) 9.9 H, Absolute Lymphs (auto) 1.70, Nucleated RBC % 0 02/18/20 06:23: Hemoglobin A1c 7.5 H 02/18/20 08:05: POC Glucose 117 H Current Medications Acetaminophen (Acetaminophen 325 Mg Tablet) 650 mg PO Q6H PRN PRN PRN Reason: Pain Score 1-10/Temp > 100.7 F Last Admin: 02/18/20 02:13 Dose: 650 mg Documented by: Al Hydroxide/Mg Hydroxide (Mag Hydrox/Al Hydrox/Simeth 30 Ml Udc) 30 ml PO Q6H PRN PRN PRN Reason: Gastric Burning Albuterol Sulfate (Albuterol Sulfate 8gm 60 Dose Inhaler (Floor Use-With Spacer)) 1 puff INHALATION Q4HWA [facility] Last Admin: 02/18/20 09:39 Dose: 1 puff Documented by: Albuterol Sulfate (Albuterol Sulfate 8gm 60 Dose Inhaler (Floor Use-With Spacer)) 1 puff INHALATION Q4H PRN PRN PRN Reason: SOB/WHEEZING Aspirin (Aspirin E.C. 81 Mg Tablet) 81 mg PO DAILY [facility] Last Admin: 02/18/20 09:35 Dose: 81 mg Documented by: Atorvastatin Calcium (Atorvastatin Calcium 80 Mg Tablet) 80 mg PO QHS [facility] Last Admin: 02/17/20 21:49 Dose: 80 mg Documented by: Baclofen (Baclofen 10 Mg Tablet) 10 mg PO QHS [facility] Last Admin: 02/17/20 21:49 Dose: 10 mg Documented by: Calcium Acetate (Calcium Acetate 667 Mg Capsule) [facility] Last Admin: 02/18/20 08:08 Dose: 667 mg Documented by: Cholecalciferol (Cholecalciferol (Vit D3) 1,000 Unit (25mcg)) 2,000 unit PO DAILY [facility] Last Admin: 02/18/20 09:35 Dose: 2,000 unit Documented by: Clopidogrel Bisulfate (Clopidogrel Bisulfate 75 Mg Tablet) 75 mg PO DAILY [facility] Last Admin: 02/18/20 09:35 Dose: 75 mg Documented by: Dexamethasone (Dexamethasone 2 Mg Tablet) 6 mg PO DAILY [facility] Last Admin: 02/18/20 09:35 Dose: 6 mg Documented by: Dextrose (Dextrose 50%-Water 25 Gm/50 Ml Disp.Syrin) 0 gm IV X1 PRN; Protocol PRN Reason: Hypoglycemia Enoxaparin Sodium (Enoxaparin 30 Mg/0.3 Ml Syringe) 30 mg SC BID [facility] Last Admin: 02/18/20 09:38 Dose: 30 mg Documented by: Folic Acid (Folic Acid 1 Mg Tablet) 1 mg PO DAILY [facility] Last Admin: 02/18/20 09:38 Dose: 1 mg Documented by: Glucagon (Glucagon 1 Mg/Ml Syringe) 1 mg IM .X1 PRN PRN Reason: Hypoglycemia Hydralazine HCl (Hydralazine 20 Mg/Ml Vial) 5 mg IV Q30M PRN PRN Reason: to maintain BP goals Remdesivir 100 mg/ Sodium (Chloride) 250 mls @ 125 mls/hr IV DAILY [facility] Stop: 02/20/20 11:59 Last Admin: 02/18/20 12:34 Dose: 125 mls/hr Documented by: Sodium Chloride () 250 mls @ 15 mls/hr IV .[id number] PRN PRN Reason: Saline Flush Sodium Chloride () 250 mls @ 15 mls/hr IV .[id number] PRN PRN Reason: Additional IVPB Infusion Insulin Glargine (Insulin Glargine 100 Units/Ml Pen) 100 units SC QHS [facility] Last Admin: 02/17/20 22:02 Dose: 100 unit Documented by: Insulin Human Lispro (Insulin Lispro 100 Unit/Ml Insuln.Pen) 0 unit SC ACHS [facility]; Protocol Last Admin: 02/18/20 12:33 Dose: 1 units Documented by: Insulin Human Lispro (Insulin Lispro 100 Unit/Ml Insuln.Pen) 45 unit SC TIDCM [facility] Last Admin: 02/18/20 12:33 Dose: 45 units Documented by: Isosorbide Dinitrate (Isosorbide Dn 30 Mg Tablet) 30 mg PO BID [facility] Last Admin: 02/18/20 09:38 Dose: 30 mg Documented by: Labetalol HCl (Labetalol (Prefilled) 20 Mg/4 Ml) 10 - 20 mg IV Q10M PRN PRN PRN Reason: to Maintain BP Goals Metoprolol Tartrate (Metoprolol Tartrate 25 Mg Tablet) 25 mg PO BID [facility] Last Admin: 02/18/20 09:35 Dose: 25 mg Documented by: Metoprolol Tartrate (Metoprolol Tartrate 50 Mg Tablet) 50 mg PO BID [facility] Last Admin: 02/18/20 09:38 Dose: 50 mg Documented by: Miscellaneous Information (Inhaler, Assist Devices 1 Each Spacer) [facility] Last Admin: 02/18/20 09:39 Dose: Not Given Documented by: Nitroglycerin (Nitroglycerin (Inpatient Use) 0.4 Mg Tab.Subl) 0.4 mg SUBLINGUAL Q5M PRN PRN Reason: CARDIAC/CHEST PAIN Non-Formulary Medication (Buprenorphine) 1 patch transdermal [facility] Ondansetron HCl (Ondansetron 4 Mg/2 Ml Vial) 4 mg IV Q8H PRN PRN PRN Reason: NAUSEA/VOMITING Last Admin: 02/17/20 21:54 Dose: 4 mg Documented by: Pantoprazole Sodium (Pantoprazole Sodium 40 Mg Tablet) 40 mg PO DAILY [facility] Last Admin: 02/18/20 09:35 Dose: 40 mg Documented by: Pregabalin (Pregabalin 75 Mg Capsule) 75 mg PO BID [facility] Last Admin: 02/18/20 09:38 Dose: 75 mg Documented by: Psyllium Hydrophilic Mucilloid (Psyllium 1 Packet) 1 packet PO DAILY PRN PRN PRN Reason: Constipation Sodium Chloride (0.9% Saline Lock 10 Ml Syringe) 10 - 40 ml IV UD PRN PRN Reason: SALINE FLUSH Last Admin: 02/17/20 21:54 Dose: 10 ml Documented by: Trazodone HCl (Trazodone 50 Mg Tablet) 50 mg PO QHS [facility] Last Admin: 02/17/20 21:49 Dose: 50 mg Documented by: Venlafaxine HCl (Venlafaxine Xr 150 Mg Capsule) 150 mg PO DAILY [facility] Last Admin: 02/18/20 09:35 Dose: 150 mg Documented by: Medical Necessity - Tobacco Use Smoking Status: Former smoker Tobacco Use: Non-smoker Assessment/Plan All Active Problems (Last Reviewed 12/26/19 @ 11:22 by Hollie Fulton PLANT PROTECTION SUPERVISOR, PLANT PROTECTION SUPERVISOR- C) COVID-19 virus infection (Acute) Pneumonia due to COVID-19 virus (Acute) Hypoxia (Acute) Pancreatitis (Resolved) H/O coronary artery bypass surgery (Resolved 05/18/12) History of coronary artery stent placement (Resolved 01/12/18) Abdominal pain (Resolved) Acute pancreatitis (Resolved) COPD exacerbation (Resolved) Chest pain (Resolved) Chest pain (Resolved) Hallucinations (Resolved) Hypokalemia (Resolved) Irritant dermatitis (Resolved) Lumbar back pain (Resolved) Multiple falls (Resolved) Sepsis (Resolved) Shortness of breath (Resolved) Surgical wound dehiscence (Resolved) 1. acute COVID 19 pneumonia * has been ill for 2 weeks. time of onset around 02/04. * continue dex and rem * monitor labs. * quarantine through 02/24 2. acute hypoxic respiratory insuffiency * 2/2 COVID pneumonia/ALI * wean oxygen as tolerated, at this time, requires oxygen with activity 3. Diplopia * MRI negative for CVA * already on DAPT and HIS * EOM are intact, I don't appreciate any CN palsy. * Consult [facility] neurology * Likely with need optho eval as out 4. CAD * stable 5. DM2 * uncontrolled * certainly exacerbated by steroids * a1c 7.5 * continue glargine, SSI and scheduled log 6. carotid stenosis * 50-70% on right carotic bulb and less than 50% on left. * follow up with vascular surgery as outpt. 7. VTE prophylaxis: LMWH Inpatient E&M: 18673 Subs Hosp L2
--- NOTE | 2020-02-18 14:03 | TELEMED_ITS ---
SOC Telemed has confirmed receipt of a request for visit. This document confirms receipt of the order initiating the consult. To find the results of the consultation, please view the patient's reports for the scanned Telemed Consult.
[2020-02-18 14:20] LABS: Bedside Glucose 216 mg/dL (70-110)
[2020-02-18] MEDS: DiphenhydrAMINE 50 MG/ML Syringe 25 MG IV ×2 (15:43→21:58)
[2020-02-18] MEDS: proMETHazine 25 MG/ML Syringe 12.5 MG IV ×2 (15:46→22:01)
[2020-02-18 18:15] LABS: Bedside Glucose 238 mg/dL (70-110)
[2020-02-18] MEDS: Baclofen 10 MG Tablet PO (21:40)
[2020-02-18] MEDS: traZODone 50 MG Tablet PO (21:40)
[2020-02-18] MEDS: Atorvastatin Calcium 80 MG Tablet PO (21:40)
[2020-02-18] MEDS: Pyridostigmine Bromide 60 MG Tablet 30 MG PO (21:42)
[2020-02-18] MEDS: 0.9% Saline Lock 10 ML Syringe IV (21:58)
[2020-02-18 22:36] LABS: Bedside Glucose 271 mg/dL (70-110)
[2020-02-19] VITALS (12 sets, daily range): BP systolic 135–156; BP diastolic 68–81; PULSE 51–64; RESP 16–18; TEMP 36.7; O2SAT 87–96
[2020-02-19] MEDS: Pyridostigmine Bromide 60 MG Tablet 30 MG PO (04:45)
[2020-02-19 06:10] LABS: Absolute Neutrophil Count 9.4 X10^3/uL (2.0-7.7); Basophil# 0.07 X10^3/uL; Basophil% 0.6 % (0-1); Hematocrit 41.8 % (37-47); Hemoglobin 13.1 g/dL (12.0-15.0); Lymphocyte % 12.4 % (19-41); Mean Corp Hgb Conc 31.3 g/dL (32-36); Mean Corpuscular Hgb 27.6 pg (27.0-32.0); Mean Corpuscular Volume 88.2 fL (81-99); Mean Platelet Vol. 11.7 fl (6.2-12.0); Monocyte% 4.1 % (0-10); NRBC Flagged by Analyzer 0 % (0-5); Neutrophil % 78.1 % (47-70); Platelet Count 162 K/mm3 (150-450); RBC Distribution Width CV 13.3 % (11.6-14.6); RBC Distribution Width SD 43.7 fl (35.1-43.9); Red Blood Count 4.74 M/mm3 (4.2-5.4); White Blood Count 12.1 K/mm3 (4.4-11.0)
[2020-02-19 06:43] LABS: ALB/GLOB Ratio 0.4 RATIO (0.9-2.4); AST(SGOT) 22 U/L (15-37); Alanine Aminotransfer ALT/SGPT 18 U/L (13-56); Alkaline Phosphatase 121 U/L (45-117); Anion Gap 7 (5-15); BUN 31 mg/dL (7-18); BUN/Creat Ratio 25.8 RATIO (10-20); Calcium,Total 8.3 mg/dL (8.5-10.1); Chloride 109 mmol/L (98-107); EST Glomerular Filtration Rate 48 mL/min (>60); Est Glom Filt Rate - Afr Amer 59 mL/min (>60); Estimated Creatinine Clearance 47.88 ml/min; Globulin 4.5 g/dL (2.2-4.2); Glucose 143 mg/dL (74-106); Potassium 4.8 mmol/L (3.5-5.1); Protein, Total 6.5 g/dL (6.4-8.2); Sodium Level 138 mmol/L (136-145)
[2020-02-19] MEDS: Insulin Lispro 100 UNIT/ML INSULN.PEN 45 UNIT SC ×2 (08:58→11:11)
--- NOTE | 2020-02-19 09:00 | MRI_ITS ---
STUDY: EXAMINATION - MRV BRAIN WITHOUT CONTRAST REASON FOR EXAM: Female, 59 years old. diplopia X 2 WEEKS TECHNIQUE: 3D [id number] (TOF) imaging was performed in a 1.5 saumya MRI scanner. COMPARISON: None. FINDINGS: Normal flow within the superior sagittal sinus. Normal flow within the superficial cortical veins. Normal flow within the paired internal cerebral veins, vein of [place] and straight sinus. There is preferential flow within the right transverse and sigmoid sinuses, however there is demonstrated flow within the left transverse and sigmoid sinus. Normal flow within the bilateral jugular bulbs. MRI/MRV Head Without Contrast IMPRESSION: Normal unenhanced MRV of the brain. Electronically Signed: Houston Ann MD at 11:18 EST Tel , Service support ,
[2020-02-19] MEDS: Aspirin E.C. 81 MG Tablet PO (09:09)
[2020-02-19] MEDS: Venlafaxine XR 150 MG Capsule PO (09:09)
[2020-02-19] MEDS: dexAMETHasone 2 MG TABLET 6 MG PO (09:09)
[2020-02-19] MEDS: Pregabalin 75 MG Capsule PO (09:09)
[2020-02-19] MEDS: Folic Acid 1 MG Tablet PO (09:09)
[2020-02-19] MEDS: Pantoprazole Sodium 40 MG Tablet PO (09:10)
[2020-02-19] MEDS: Clopidogrel Bisulfate 75 MG Tablet PO (09:10)
[2020-02-19] MEDS: Calcium Acetate 667 MG Capsule PO (09:10)
[2020-02-19] MEDS: Isosorbide DN 30 MG Tablet PO (09:15)
[2020-02-19] MEDS: Enoxaparin 30 MG/0.3 ML Syringe SC (09:16)
[2020-02-19 09:30] LABS: Bedside Glucose 132 mg/dL (70-110)
--- NOTE | 2020-02-19 10:00 | CASEMGMT ---
RN CM called patient in room for initial transition planning/care coordination assessment. RN CM introduced self and role at [facility]. Patient is alert and oriented. Patient willing to participate in assessment and is able to answer all questions appropriately. Care providers, pharmacy, and demographics verified. Patient wishes to discharge home, denies need for home health at this time. Patient states she has no further needs or concerns at this time. CM to follow for discharge planning needs that may arise. PCP: [facility] Specialists: Lynsey, denitrator; Keven, tonnage compilation clerk; Dunia, gastro; Adriana, pain; Jb, nephrology Preferred Pharmacy: [facility], dc with [facility] retail at discharge Insurance: [employer] Prescription Benefit: yes Living Will/HPOA: yes, significant other Azucena Friedman LNOK: sig other Living Arrangements: patient lives alone in a first floor apartment with no steps to enter the home. Patient states she is independent at home. Transportation: self, Azucena DME/HHC: Patient states she has cane, walker, grab bars, bipap and oxygen 2lpm at through [employer]. Patient denies previous HHC. Disposition Plan: Patient to discharge home with family support and follow-up plans in place. Amie IVAN, RN, CM
[2020-02-19] MEDS: Insulin Lispro 100 UNIT/ML INSULN.PEN SC (11:11)
[2020-02-19 11:15] LABS: Bedside Glucose 241 mg/dL (70-110)
--- NOTE | 2020-02-19 11:54 | PCM.DC ---
- Discharge Diagnoses Current Active Problems: Current Active and Chronic Problems (Last Reviewed 12/26/19 @ 11:22 by Hollie Fulton MOLDING SUPERVISOR, MOLDING SUPERVISOR-C) COVID-19 virus infection (Acute) Pneumonia due to COVID-19 virus (Acute) Hypoxia (Acute) 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) Benign essential hypertension (Chronic) Diabetic gastroparesis (Chronic) Diabetes (Chronic) Secondary pulmonary arterial hypertension (Chronic) Chronic diastolic (congestive) heart failure (Chronic) Depression with anxiety (Chronic) Essential (primary) hypertension (Chronic) Atherosclerosis of coronary artery bypass graft without angina pectoris (Chronic) CABG x 4 JONES-LAD, SVG-D1, SVG-OM1, SVG-LPDA 05/18/2012 PCI-CLINTON mid D1 with a 2.25 x 12 Promus Synergy 01/12/2018 Mid LAD and Cx 08/30/2012, D1 and prox OM1 09/14/12, Prox SVG, Distal SVG to the Mid OM 10/31/2012 Obstructive sleep apnea (Chronic) Noncompliant Hyperlipidemia (Chronic) You will use the following diet at home:: Calorie/Carbohydrate Controlled (specify 1200, 1400, etc) - 1800 carrol / day, Cardiac Your food should be the consistency of: Regular Your liquids should be the consistency of: Regular/Thin Discharge Activity: May Not Drive, - - remain in quarantine for at least 7 more days Allergies/Adverse Reactions: Allergies ciprofloxacin Allergy (Intermediate, Verified 02/16/20 14:15) Swelling cinnamon [Cinnamon] Allergy (Verified 02/16/20 14:15) Anaphylaxis Influenza Virus Vaccines Allergy (Verified 02/16/20 14:15) Shortness of breath liraglutide [From Victoza] Allergy (Verified 02/16/20 14:15) Anaphylaxis metronidazole [From Flagyl] Allergy (Verified 02/16/20 14:15) Hives Metronidazole HCl [From Flagyl] Allergy (Verified 02/16/20 14:15) Hives Penicillins Allergy (Verified 02/16/20 14:15) Hives Sulfa (Sulfonamide Antibiotics) Allergy (Verified 02/16/20 14:15) Hives codeine Adverse Reaction (Verified 02/16/20 14:15) Stops Ileostomy metformin HCl [From Glucophage] Adverse Reaction (Verified 02/16/20 14:15) Nausea ranolazine Adverse Reaction (Verified 02/16/20 14:15) Nausea/Vom/Diarrhea Kzznbpd-Abx-Tdd Reductase Inhibitor Adverse Reaction (Verified 02/16/20 14:15) Nausea/joints ache Medications to take at Discharge Aspirin E.C. [Ecotrin] 81 mg PO DAILY 01/11/18 Baclofen [Lioresal] 10 mg PO QHS 06/30/18 venlafaxine 150 mg capsule,extended release 24 hr 150 mg PO DAILY #90 cap 09/06/18 buprenorphine 15 mcg/hour weekly transdermal patch 1 patch TRANSDERMAL SA 06/14/19 calcium acetate(phosphat bind) 667 mg tablet 667 mg PO BID #180 tab 07/06/19 Insulin Lispro [Humalog Kwikpen U-200] 45 unit SQ TIDCM 10/10/19 Isosorbide DN [Isordil] 30 mg PO BID 10/10/19 Metoprolol Tartrate 25 mg PO BID 10/10/19 Metoprolol Tartrate 50 mg PO BID 10/10/19 traZODone [Desyrel] 50 mg PO QHS 10/10/19 metoclopramide HCl 5 mg tablet 5 mg PO DAILY PRN PRN tab 10/20/19 atorvastatin 80 mg tablet 80 mg PO QHS #90 tab 10/24/19 Cholecalciferol (Vitamin D3) [Vitamin D3] 2,000 unit PO DAILY 02/16/20 Clopidogrel Bisulfate [Clopidogrel] 75 mg PO DAILY 02/16/20 Folic Acid 1 mg PO DAILY 02/16/20 Insulin Glargine,Hum.rec.anlog [Lantus Solostar] 100 unit SC QHS 02/16/20 Pantoprazole Sodium [Protonix] 40 mg PO DAILY 02/16/20 Pregabalin [Lyrica] 75 mg PO BID 02/16/20 Acetaminophen [Tylenol Tablet] 650 mg PO Q6H PRN PRN tablet 02/19/20 dexAMETHasone [Dexamethasone] 6 mg PO DAILY #7 tab 02/19/20 The following prescriptions were given: dexAMETHasone [Dexamethasone] 6 mg PO DAILY #7 tab Transmission Status: Pending to [facility]/pharmacy #[id number] Primary Care Physician: Mala Mcgrath MD [Primary Care Provider] - Please follow up with your Primary Care Physician in: 2 weeks Test Results: Test results from this visit will be discussed in further detail at your follow-up appointment, if applicable. Please Follow Up With: opthalmology When: 2 weeks Proposed Discharge Date: 02/19/20
--- NOTE | 2020-02-19 11:55 | PCM.DC.SUM ---
<Tomas Sun - Last Filed: 02/19/20 11:55> Discharge Date and Diagnosis - Problem List Patient Problems: Active and Suspected Problems (Last Reviewed 12/26/19 @ 11:22 by Hollie Fulton CONDENSER OPERATOR, CONDENSER OPERATOR-C) COVID-19 virus infection (Acute) Pneumonia due to COVID-19 virus (Acute) Hypoxia (Acute) Date of Admission: 02/16/20 Date of Discharge: 02/19/20 - Primary Discharge Diagnosis Acute Problems: Active Problems (Last Reviewed 12/26/19 @ 11:22 by Hollie Fulton CONDENSER OPERATOR, CONDENSER OPERATOR-C) Acute COVID19 with associated acute hypoxic respiratory insufficiency Diplopia - unclear etiology, stroke ruled out Carotid stenosis 50-70% right carotid bulb - Secondary Discharge Diagnosis Chronic Problems: Chronic Problems (Last Reviewed 12/26/19 @ 11:22 by Hollie Fulton CONDENSER OPERATOR, CONDENSER OPERATOR-C) Flu vaccine need (Chronic) Abdominal pain (Chronic) 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) Benign essential hypertension (Chronic) Diabetic gastroparesis (Chronic) Diabetes (Chronic) Secondary pulmonary arterial hypertension (Chronic) Chronic diastolic (congestive) heart failure (Chronic) BMI 31.0-31.9,adult (Chronic) Depression with anxiety (Chronic) Gastroenteritis (Chronic) Arthritis (Chronic) Essential (primary) hypertension (Chronic) Atherosclerosis of coronary artery bypass graft without angina pectoris (Chronic) CABG x 4 JONES-LAD, SVG-D1, SVG-OM1, SVG-LPDA 05/18/2012 PCI-CLINTON mid D1 with a 2.25 x 12 Promus Synergy 01/12/2018 Mid LAD and Cx 08/30/2012, D1 and prox OM1 09/14/12, Prox SVG, Distal SVG to the Mid OM 10/31/2012 COPD (chronic obstructive pulmonary disease) (Chronic) Anemia of chronic renal failure, stage 3 (moderate) (Chronic) Obstructive sleep apnea (Chronic) Noncompliant Right thyroid nodule (Chronic) 1.4 centimeter right sided nodule on CT scan Ulcerative colitis (Chronic) Hyperlipidemia (Chronic) DM2 (diabetes mellitus, type 2) (Chronic) Hospital Course and Treatment Imaging Results: IMAGING: RAD/Chest 1 View (Portable) IMPRESSION: No acute abnormality is seen. MRI/Brain without Contrast IMPRESSION: No evidence of acute intracranial bleed, mass or ischemia. MRI/MRA Head ONLY without Contrast IMPRESSION: 1. Nonvisualized right A1 segment with differential including congenital absence versus chronic occlusion not excluded. Otherwise no evidence of significant steno-occlusive disease or aneurysm. MRI/MRA Neck WITH and W/O Contrast IMPRESSION: 1. Moderate to severe narrowing of the right carotid bulb and proximal right ICA approximately 50-70%. 2. Mild narrowing of the proximal left ICA less than 50%. MRI/MRV Head Without Contrast IMPRESSION: Normal unenhanced MRV of the brain. Consults: SOC - Neurology Operations: None Procedures: None Summary of Care Provided: Hospital course: The patient is a 59 year old F with pmhx as above that presented to the ER with SOB and cough that began about 7 days after [facility]. She reported someone at [facility] had tested positive for covid19. She had been having worsening SOB, fever, cough, weakness, and diarrhea. She came to the ER and had pulse ox of 91% on room air and positive COVID19 test. She was placed on dexamethasone and remdesivir. The following day she complained of diplopia that started when she was sick. She reported that while driving she would see many cars coming at her and that she could not tell how many there were so she did not feel safe driving. She continued to have this double vision throughout her stay. It would go away when closing either one eye or the other. She did not have evidence of strabismus. MRI brain was negative for stroke. MRA head and neck showed 50-70% stenosis of the right carotid bulb which later may warrant referral to a vascular surgeon and should be monitored as an outpatient. Neuro was consulted. They recommended rheumatoid panel, ROSA ISELA level, RPR testing - which are pending. They also recommended MRV of the brain - this was negative. The patients breathing continued to improve. She was discharged home in stable condition. She will need to complete 10 total days of dexamethasone. She will need to follow up with her PCP in 2 weeks. She will need to follow up with an bookkeeping clerks supervisor when she is out of quarantine. She will need to remain in quarantine for 7 more days. She is not allowed to drive until further cleared by ophthalmology. This patient was seen by Tomas Sun PA-C under the supervision of Doctor Etienne. [] Patient Problems: Active and Suspected Problems (Last Reviewed 12/26/19 @ 11:22 by Hollie Fulton CONDENSER OPERATOR, CONDENSER OPERATOR-C) COVID-19 virus infection (Acute) Pneumonia due to COVID-19 virus (Acute) Hypoxia (Acute) - Physical Exam Vitals/I&O's: Vital Signs Temp Pulse Resp BP Pulse Ox 98.1 F 55 L 18 135/68 H 93 02/19/20 09:20 02/19/20 11:00 02/19/20 09:20 02/19/20 09:20 02/19/20 09:20 Oxygen Flow Rate (L/min) 1.5 Oxygen Delivery Method Nasal Cannula Weight: 195 lb 1.745 oz Body Mass Index (BMI) 30.2 Finger Stick Blood Glucose 463 Intake and Output for Last 24 Hours 02/17/20 02/18/20 02/19/20 23:59 23:59 23:59 Intake Total 2173.75 / 2393.75 1256.25 / 1476.25 570 / 570 Balance 2173.75 / 2393.75 1256.25 / 1476.25 570 / 570 General: Alert, Oriented x3, Cooperative HEENT: Atraumatic, PERRLA, EOMI, Normocephalic Neck: Supple, No JVD, Negative Carotid Bruits Lungs: Clear to auscultation, Normal air movement Cardiovascular: Regular rate, No murmurs Abdomen: Bowel Sounds Present, Soft, Non Tender Extremities: No edema, Capillary Refill Less than 3 Seconds Skin: No rashes, No breakdown Musculoskeletal: No Tenderness to Palpation of Joints or Extremities Neurological: Cranial nerves II-XII grossly intact Psych/Mental Status: Normal Affect, Appropriate, Alert and oriented to time, place, person, mood and affect Microbiology Past 72 Hours 02/16/20 23:00 Stool Enteric Bacteriology - Final 02/16/20 20:50 Mucosa - Nasopharyngeal Respiratory Panel (PCR) - Final 02/16/20 14:50 Mucosa - Nose SARS-CoV-2 Antigen (Rapid) - Final SARS-CoV-2 (COVID 19) Laboratory Results 02/18/20 12:32: POC Glucose 216 H 02/18/20 17:57: POC Glucose 238 H 02/18/20 21:51: POC Glucose 271 H 02/19/20 06:04: WBC 12.1 H, RBC 4.74, Hgb 13.1, Hct 41.8, MCV 88.2, MCH 27.6, MCHC 31.3 L, RDW Std Deviation 43.7, RDW Coeff of Jan 13.3, Plt Count 162, MPV 11.7, Immature Gran % (Auto) 4.800 H, Neut % (Auto) 78.1 H, Lymph % (Auto) 12.4 L, Brooke % (Auto) 4.1, Eos % (Auto) 0.0, Baso % (Auto) 0.6, Absolute Neuts (auto) 9.4 H, Absolute Lymphs (auto) 1.50, Nucleated RBC % 0 02/19/20 06:04: Sodium 138, Potassium 4.8, Chloride 109 H, Carbon Dioxide 22.0, Anion Gap 7, BUN 31 H, Creatinine 1.20 H, Estim Creat Clear Calc 47.88, Est GFR (MDRD) Af Amer 59 L, Est GFR (MDRD) Non-Af 48 L, BUN/Creatinine Ratio 25.8 H, Glucose 143 H, Calcium 8.3 L, Total Bilirubin 0.50, AST 22, ALT 18, Alkaline Phosphatase 121 H, Total Protein 6.5, Albumin 2.0 L, Globulin 4.5 H, Albumin/Globulin Ratio 0.4 L 02/19/20 06:04: Acetylchol Rcpt Block Ab Pending, Acetylchol Rcpt Modu Ab Pending 02/19/20 06:04: RPR Pending 02/19/20 06:04: YOLANDA Screen Pending, ALCON-1 Antibody Pending, SS-A/Ro IgG Antibody Pending, SS-B/La IgG Antibody Pending, Sm (Alexander) Antibody Pending, SOFTWARE MANAGER Antibody Pending, Scl-70 Scleroderma Ab Pending, Double Strand DNA Ab Pending, Centromere B Antibody Pending 02/19/20 06:04: Angiotensin Convert Enz Pending 02/19/20 08:47: POC Glucose 132 H 02/19/20 11:10: POC Glucose 241 H Current Medications Acetaminophen (Acetaminophen 325 Mg Tablet) 650 mg PO Q6H PRN PRN PRN Reason: Pain Score 1-10/Temp > 100.7 F Last Admin: 02/18/20 02:13 Dose: 650 mg Documented by: Al Hydroxide/Mg Hydroxide (Mag Hydrox/Al Hydrox/Simeth 30 Ml Udc) 30 ml PO Q6H PRN PRN PRN Reason: Gastric Burning Albuterol Sulfate (Albuterol Sulfate 8gm 60 Dose Inhaler (Floor Use-With Spacer)) 1 puff INHALATION Q4HWA [facility] Last Admin: 02/19/20 09:07 Dose: 1 puff Documented by: Albuterol Sulfate (Albuterol Sulfate 8gm 60 Dose Inhaler (Floor Use-With Spacer)) 1 puff INHALATION Q4H PRN PRN PRN Reason: SOB/WHEEZING Aspirin (Aspirin E.C. 81 Mg Tablet) 81 mg PO DAILY [facility] Last Admin: 02/19/20 09:09 Dose: 81 mg Documented by: Atorvastatin Calcium (Atorvastatin Calcium 80 Mg Tablet) 80 mg PO QHS [facility] Last Admin: 02/18/20 21:40 Dose: 80 mg Documented by: Baclofen (Baclofen 10 Mg Tablet) 10 mg PO QHS [facility] Last Admin: 02/18/20 21:40 Dose: 10 mg Documented by: Calcium Acetate (Calcium [facility] 667 [facility]apsule) [facility] Last Admin: 02/19/20 09:10 Dose: 667 mg Documented by: Cholecalciferol (Cholecalciferol (Vit D3) 1,000 Unit (25mcg)) 2,000 unit PO DAILY [facility] Last Admin: 02/19/20 09:10 Dose: 2,000 unit Documented by: Clopidogrel Bisulfate (Clopidogrel Bisulfate 75 Mg Tablet) 75 mg PO DAILY [facility] Last Admin: 02/19/20 09:10 Dose: 75 mg Documented by: Dexamethasone (Dexamethasone 2 Mg Tablet) 6 mg PO DAILY [facility] Last Admin: 02/19/20 09:09 Dose: 6 mg Documented by: Dextrose (Dextrose 50%-Water 25 Gm/50 Ml Disp.Syrin) 0 gm IV X1 PRN; Protocol PRN Reason: Hypoglycemia Diphenhydramine HCl (Diphenhydramine 50 Mg/Ml Syringe) 25 mg IV Q6H PRN PRN PRN Reason: HEADACHE Last Admin: 02/18/20 21:58 Dose: 25 mg Documented by: Enoxaparin Sodium (Enoxaparin 30 Mg/0.3 Ml Syringe) 30 mg SC BID [facility] Last Admin: 02/19/20 09:16 Dose: 30 mg Documented by: Folic Acid (Folic Acid 1 Mg Tablet) 1 mg PO DAILY [facility] Last Admin: 02/19/20 09:09 Dose: 1 mg Documented by: Glucagon (Glucagon 1 Mg/Ml Syringe) 1 mg IM .X1 PRN PRN Reason: Hypoglycemia Hydralazine HCl (Hydralazine 20 Mg/Ml Vial) 5 mg IV Q30M PRN PRN Reason: to maintain BP goals Remdesivir 100 mg/ Sodium (Chloride) 250 mls @ 125 mls/hr IV DAILY [facility] Stop: 02/20/20 11:59 Last Admin: 02/19/20 11:07 Dose: 125 mls/hr Documented by: Sodium Chloride () 250 mls @ 15 mls/hr IV .[id number] PRN PRN Reason: Saline Flush Sodium Chloride () 250 mls @ 15 mls/hr IV .[id number] PRN PRN Reason: Additional IVPB Infusion Insulin Glargine (Insulin Glargine 100 Units/Ml Pen) 100 units SC QHS [facility] Last Admin: 02/18/20 21:53 Dose: 100 unit Documented by: Insulin Human Lispro (Insulin Lispro 100 Unit/Ml Insuln.Pen) 0 unit SC ACHS [facility]; Protocol Last Admin: 02/19/20 11:11 Dose: 2 units Documented by: Insulin Human Lispro (Insulin Lispro 100 Unit/Ml Insuln.Pen) 45 unit SC TIDCM [facility] Last Admin: 02/19/20 11:11 Dose: 45 units Documented by: Isosorbide Dinitrate (Isosorbide Dn 30 Mg Tablet) 30 mg PO BID [facility] Last Admin: 02/19/20 09:15 Dose: 30 mg Documented by: Labetalol HCl (Labetalol (Prefilled) 20 Mg/4 Ml) 10 - 20 mg IV Q10M PRN PRN PRN Reason: to Maintain BP Goals Metoprolol Tartrate (Metoprolol Tartrate 25 Mg Tablet) 25 mg PO BID [facility] Last Admin: 02/19/20 09:15 Dose: Not Given Documented by: Metoprolol Tartrate (Metoprolol Tartrate 50 Mg Tablet) 50 mg PO BID [facility] Last Admin: 02/19/20 09:16 Dose: Not Given Documented by: Miscellaneous Information (Inhaler, Assist Devices 1 Each Spacer) 1 each INHALATION Q4HWA [facility] Last Admin: 02/19/20 09:14 Dose: Not Given Documented by: Nitroglycerin (Nitroglycerin (Inpatient Use) 0.4 Mg Tab.Subl) 0.4 mg SUBLINGUAL Q5M PRN PRN Reason: CARDIAC/CHEST PAIN Non-Formulary Medication (Buprenorphine) 1 patch transdermal [facility] Ondansetron HCl (Ondansetron 4 Mg/2 Ml Vial) 4 mg IV Q8H PRN PRN PRN Reason: NAUSEA/VOMITING Last Admin: 02/17/20 21:54 Dose: 4 mg Documented by: Pantoprazole Sodium (Pantoprazole Sodium 40 Mg Tablet) 40 mg PO DAILY [facility] Last Admin: 02/19/20 09:10 Dose: 40 mg Documented by: Pregabalin (Pregabalin 75 Mg Capsule) 75 mg PO BID [facility] Last Admin: 02/19/20 09:09 Dose: 75 mg Documented by: Promethazine HCl (Promethazine 25 Mg/Ml Syringe) 12.5 mg IV Q6H PRN PRN PRN Reason: HEADACHE Last Admin: 02/18/20 22:01 Dose: 12.5 mg Documented by: Psyllium Hydrophilic Mucilloid (Psyllium 1 Packet) 1 packet PO DAILY PRN PRN PRN Reason: Constipation Pyridostigmine Baltic (Pyridostigmine Baltic 60 Mg Tablet) 30 mg PO Q8 [facility] Last Admin: 02/19/20 04:45 Dose: 30 mg Documented by: Sodium Chloride (0.9% Saline Lock 10 Ml Syringe) 10 - 40 ml IV UD PRN PRN Reason: SALINE FLUSH Last Admin: 02/18/20 21:58 Dose: 20 ml Documented by: Trazodone HCl (Trazodone 50 Mg Tablet) 50 mg PO QHS [facility] Last Admin: 02/18/20 21:40 Dose: 50 mg Documented by: Venlafaxine HCl (Venlafaxine Xr 150 Mg Capsule) 150 mg PO DAILY [facility] Last Admin: 02/19/20 09:09 Dose: 150 mg Documented by: Discharge Diet: Low fat/ Low Cholesterol, 1800 Calorie Control Diet, 2000 mg Sodium Diet Discharge Activity: May Not Drive, - - remain in quarantine for at least 7 more days Home Medications: Medications to take at Discharge Aspirin E.C. [Ecotrin] 81 mg PO DAILY 01/11/18 Baclofen [Lioresal] 10 mg PO QHS 06/30/18 venlafaxine 150 mg capsule,extended release 24 hr 150 mg PO DAILY #90 cap 09/06/18 buprenorphine 15 mcg/hour weekly transdermal patch 1 patch TRANSDERMAL SA 06/14/19 calcium acetate(phosphat bind) 667 mg tablet 667 mg PO BID #180 tab 07/06/19 Insulin Lispro [Humalog Kwikpen U-200] 45 unit SQ TIDCM 10/10/19 Isosorbide DN [Isordil] 30 mg PO BID 10/10/19 Metoprolol Tartrate 25 mg PO BID 10/10/19 Metoprolol Tartrate 50 mg PO BID 10/10/19 traZODone [Desyrel] 50 mg PO QHS 10/10/19 metoclopramide HCl 5 mg tablet 5 mg PO DAILY PRN PRN tab 10/20/19 atorvastatin 80 mg tablet 80 mg PO QHS #90 tab 10/24/19 Cholecalciferol (Vitamin D3) [Vitamin D3] 2,000 unit PO DAILY 02/16/20 Clopidogrel Bisulfate [Clopidogrel] 75 mg PO DAILY 02/16/20 Folic Acid 1 mg PO DAILY 02/16/20 Insulin Glargine,Hum.rec.anlog [Lantus Solostar] 100 unit SC QHS 02/16/20 Pantoprazole Sodium [Protonix] 40 mg PO DAILY 02/16/20 Pregabalin [Lyrica] 75 mg PO BID 02/16/20 Acetaminophen [Tylenol Tablet] 650 mg PO Q6H PRN PRN tab 02/19/20 dexAMETHasone [Dexamethasone] 6 mg PO DAILY #7 tab 02/19/20 Following Prescriptions Were Given to Patient: dexAMETHasone [Dexamethasone] 6 mg PO DAILY #7 tab Transmission Status: Received by [facility]/pharmacy #[id number] Primary Care Physician: Mala Mcgrath MD [Primary Care Provider] - Please follow up with your Primary Care Physician in: 2 weeks Please Follow Up With: opthalmology When: 2 weeks Disposition: Home Minutes spent on discharge:: 35 Patient Condition:: Stable Medical Necessity - Tobacco Use Smoking Status: Former smoker Tobacco Use: Non-smoker Meaningful Use Info Meaningful Use Diagnoses (Choose all that apply): None applicable <Michael Etienne - Last Filed: 02/19/20 13:56> Discharge Date and Diagnosis - Primary Discharge Diagnosis Acute Problems: Active Problems (Last Reviewed 12/26/19 @ 11:22 by Hollie Fulton CONDENSER OPERATOR, CONDENSER OPERATOR-C) COVID-19 virus infection (Acute) Pneumonia due to COVID-19 virus (Acute) Hypoxia (Acute) - Secondary Discharge Diagnosis Chronic Problems: Chronic Problems (Last Reviewed 12/26/19 @ 11:22 by Hollie Fulton CONDENSER OPERATOR, CONDENSER OPERATOR-C) Flu vaccine need (Chronic) Abdominal pain (Chronic) 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) Benign essential hypertension (Chronic) Diabetic gastroparesis (Chronic) Diabetes (Chronic) Secondary pulmonary arterial hypertension (Chronic) Chronic diastolic (congestive) heart failure (Chronic) BMI 31.0-31.9,adult (Chronic) Depression with anxiety (Chronic) Gastroenteritis (Chronic) Arthritis (Chronic) Essential (primary) hypertension (Chronic) Atherosclerosis of coronary artery bypass graft without angina pectoris (Chronic) CABG x 4 JONES-LAD, SVG-D1, SVG-OM1, SVG-LPDA 05/18/2012 PCI-CLINTON mid D1 with a 2.25 x 12 Promus Synergy 01/12/2018 Mid LAD and Cx 08/30/2012, D1 and prox OM1 09/14/12, Prox SVG, Distal SVG to the Mid OM 10/31/2012 COPD (chronic obstructive pulmonary disease) (Chronic) Anemia of chronic renal failure, stage 3 (moderate) (Chronic) Obstructive sleep apnea (Chronic) Noncompliant Right thyroid nodule (Chronic) 1.4 centimeter right sided nodule on CT scan Ulcerative colitis (Chronic) Hyperlipidemia (Chronic) DM2 (diabetes mellitus, type 2) (Chronic) Hospital Course and Treatment Imaging Results: 02/19/20 09:00 MRV Head Without Contrast [MRI] Routine Summary of Care Provided: This patient was seen in conjunction with Tomas Sun PA-C . I have independently interviewed and examined the patient and reviewed pertinent historical, laboratory, and other data. Please refer to Tomas Sun PA-C note for details of this patient's presentation, findings, and recommendations. I have reviewed Tomas Sun PA-C note and concur with documented findings. In brief, patient is a 59-year-old lady admitted with progressive shortness of breath diagnosed with acute COVID-19 pneumonitis admitted to a monitored bed for further management Hospital course: As documented above - Physical Exam Vitals/I&O's: Vital Signs Temp Pulse Resp BP Pulse Ox 98.1 F 55 L 18 135/68 H 91 02/19/20 13:21 02/19/20 13:21 02/19/20 13:21 02/19/20 13:21 02/19/20 13:21 Oxygen Flow Rate (L/min) 1 Oxygen Delivery Method Room Air Weight: 88.5 kg Body Mass Index (BMI) 30.2 Finger Stick Blood Glucose 463 Intake and Output for Last 24 Hours 02/17/20 02/18/20 02/19/20 23:59 23:59 23:59 Intake Total 2173.75 / 2393.75 1256.25 / 1476.25 810 / 810 Balance 2173.75 / 2393.75 1256.25 / 1476.25 810 / 810 Microbiology Past 72 Hours 02/16/20 23:00 Stool Enteric Bacteriology - Final 02/16/20 20:50 Mucosa - Nasopharyngeal Respiratory Panel (PCR) - Final 02/16/20 14:50 Mucosa - Nose SARS-CoV-2 Antigen (Rapid) - Final SARS-CoV-2 (COVID 19) Laboratory Results 02/16/20 14:55: Diff Path Review Reviewed 02/17/20 03:20: Diff Path Review Reviewed 02/18/20 12:32: POC Glucose 216 H 02/18/20 17:57: POC Glucose 238 H 02/18/20 21:51: POC Glucose 271 H 02/19/20 06:04: WBC 12.1 H, RBC 4.74, Hgb 13.1, Hct 41.8, MCV 88.2, MCH 27.6, MCHC 31.3 L, RDW Std Deviation 43.7, RDW Coeff of Jan 13.3, Plt Count 162, MPV 11.7, Immature Gran % (Auto) 4.800 H, Neut % (Auto) 78.1 H, Lymph % (Auto) 12.4 L, Brooke % (Auto) 4.1, Eos % (Auto) 0.0, Baso % (Auto) 0.6, Absolute Neuts (auto) 9.4 H, Absolute Lymphs (auto) 1.50, Nucleated RBC % 0 02/19/20 06:04: Sodium 138, Potassium 4.8, Chloride 109 H, Carbon Dioxide 22.0, Anion Gap 7, BUN 31 H, Creatinine 1.20 H, Estim Creat Clear Calc 47.88, Est GFR (MDRD) Af Amer 59 L, Est GFR (MDRD) Non-Af 48 L, BUN/Creatinine Ratio 25.8 H, Glucose 143 H, Calcium 8.3 L, Total Bilirubin 0.50, AST 22, ALT 18, Alkaline Phosphatase 121 H, Total Protein 6.5, Albumin 2.0 L, Globulin 4.5 H, Albumin/Globulin Ratio 0.4 L 02/19/20 06:04: Acetylchol Rcpt Block Ab Pending, Acetylchol Rcpt Modu Ab Pending 02/19/20 06:04: RPR Pending 02/19/20 06:04: YOLANDA Screen Pending, ALCON-1 Antibody Pending, SS-A/Ro IgG Antibody Pending, SS-B/La IgG Antibody Pending, Sm (Alexander) Antibody Pending, SOFTWARE MANAGER Antibody Pending, Scl-70 Scleroderma Ab Pending, Double Strand DNA Ab Pending, Centromere B Antibody Pending 02/19/20 06:04: Angiotensin Convert Enz Pending 02/19/20 08:47: POC Glucose 132 H 02/19/20 11:10: POC Glucose 241 H Current Medications Acetaminophen (Acetaminophen 325 Mg Tablet) 650 mg PO Q6H PRN PRN PRN Reason: Pain Score 1-10/Temp > 100.7 F Last Admin: 02/18/20 02:13 Dose: 650 mg Documented by: Al Hydroxide/Mg Hydroxide (Mag Hydrox/Al Hydrox/Simeth 30 Ml Udc) 30 ml PO Q6H PRN PRN PRN Reason: Gastric Burning Albuterol Sulfate (Albuterol Sulfate 8gm 60 Dose Inhaler (Floor Use-With Spacer)) 1 puff INHALATION Q4HWA [facility] Last Admin: 02/19/20 09:07 Dose: 1 puff Documented by: Albuterol Sulfate (Albuterol Sulfate 8gm 60 Dose Inhaler (Floor Use-With Spacer)) 1 puff INHALATION Q4H PRN PRN PRN Reason: SOB/WHEEZING Aspirin (Aspirin E.C. 81 Mg Tablet) 81 mg PO DAILY [facility] Last Admin: 02/19/20 09:09 Dose: 81 mg Documented by: Atorvastatin Calcium (Atorvastatin Calcium 80 Mg Tablet) 80 mg PO QHS [facility] Last Admin: 02/18/20 21:40 Dose: 80 mg Documented by: Baclofen (Baclofen 10 Mg Tablet) 10 mg PO QHS [facility] Last Admin: 02/18/20 21:40 Dose: 10 mg Documented by: Calcium Acetate (Calcium Acetate 667 Mg Capsule) 667 mg PO BIDCM [facility] Last Admin: 02/19/20 09:10 Dose: 667 mg Documented by: Cholecalciferol (Cholecalciferol (Vit D3) 1,000 Unit (25mcg)) 2,000 unit PO DAILY [facility] Last Admin: 02/19/20 09:10 Dose: 2,000 unit Documented by: Clopidogrel Bisulfate (Clopidogrel Bisulfate 75 Mg Tablet) 75 mg PO DAILY [facility] Last Admin: 02/19/20 09:10 Dose: 75 mg Documented by: Dexamethasone (Dexamethasone 2 Mg Tablet) 6 mg PO DAILY [facility] Last Admin: 02/19/20 09:09 Dose: 6 mg Documented by: Dextrose (Dextrose 50%-Water 25 Gm/50 Ml Disp.Syrin) 0 gm IV X1 PRN; Protocol PRN Reason: Hypoglycemia Diphenhydramine HCl (Diphenhydramine 50 Mg/Ml Syringe) 25 mg IV Q6H PRN PRN PRN Reason: HEADACHE Last Admin: 02/18/20 21:58 Dose: 25 mg Documented by: Enoxaparin Sodium (Enoxaparin 30 Mg/0.3 Ml Syringe) 30 mg SC BID [facility] Last Admin: 02/19/20 09:16 Dose: 30 mg Documented by: Folic Acid (Folic Acid 1 Mg Tablet) 1 mg PO DAILY [facility] Last Admin: 02/19/20 09:09 Dose: 1 mg Documented by: Glucagon (Glucagon 1 Mg/Ml Syringe) 1 mg IM .X1 PRN PRN Reason: Hypoglycemia Hydralazine HCl (Hydralazine 20 Mg/Ml Vial) 5 mg IV Q30M PRN PRN Reason: to maintain BP goals Remdesivir 100 mg/ Sodium (Chloride) 250 mls @ 125 mls/hr IV DAILY [facility] Stop: 02/20/20 11:59 Last Admin: 02/19/20 11:07 Dose: 125 mls/hr Documented by: Sodium Chloride () 250 mls @ 15 mls/hr IV .[id number] PRN PRN Reason: Saline Flush Sodium Chloride () 250 mls @ 15 mls/hr IV .[id number] PRN PRN Reason: Additional IVPB Infusion Insulin Glargine (Insulin Glargine 100 Units/Ml Pen) 100 units SC QHS [facility] Last Admin: 02/18/20 21:53 Dose: 100 unit Documented by: Insulin Human Lispro (Insulin Lispro 100 Unit/Ml Insuln.Pen) 0 unit SC ACHS [facility]; Protocol Last Admin: 02/19/20 11:11 Dose: 2 units Documented by: Insulin Human Lispro (Insulin Lispro 100 Unit/Ml Insuln.Pen) 45 unit SC TIDCM [facility] Last Admin: 02/19/20 11:11 Dose: 45 units Documented by: Isosorbide Dinitrate (Isosorbide Dn 30 Mg Tablet) 30 mg PO BID [facility] Last Admin: 02/19/20 09:15 Dose: 30 mg Documented by: Labetalol HCl (Labetalol (Prefilled) 20 Mg/4 Ml) 10 - 20 mg IV Q10M PRN PRN PRN Reason: to Maintain BP Goals Metoprolol Tartrate (Metoprolol Tartrate 25 Mg Tablet) 25 mg PO BID [facility] Last Admin: 02/19/20 09:15 Dose: Not Given Documented by: Metoprolol Tartrate (Metoprolol Tartrate 50 Mg Tablet) 50 mg PO BID [facility] Last Admin: 02/19/20 09:16 Dose: Not Given Documented by: Miscellaneous Information (Inhaler, Assist Devices 1 Each Sp[facility]) [facility] Last Admin: 02/19/20 09:14 Dose: Not Given Documented by: Nitroglycerin (Nitroglycerin (Inpatient Use) 0.4 Mg Tab.Subl) 0.4 mg SUBLINGUAL Q5M PRN PRN Reason: CARDIAC/CHEST PAIN Non-Formulary Medication (Buprenorphine) 1 patch transdermal [facility] Ondansetron HCl (Ondansetron 4 Mg/2 Ml Vial) 4 mg IV Q8H PRN PRN PRN Reason: NAUSEA/VOMITING Last Admin: 02/17/20 21:54 Dose: 4 mg Documented by: Pantoprazole Sodium (Pantoprazole Sodium 40 Mg Tablet) 40 mg PO DAILY [facility] Last Admin: 02/19/20 09:10 Dose: 40 mg Documented by: Pregabalin (Pregabalin 75 Mg Capsule) 75 mg PO BID [facility] Last Admin: 02/19/20 09:09 Dose: 75 mg Documented by: Promethazine HCl (Promethazine 25 Mg/Ml Syringe) 12.5 mg IV Q6H PRN PRN PRN Reason: HEADACHE Last Admin: 02/18/20 22:01 Dose: 12.5 mg Documented by: Psyllium Hydrophilic Mucilloid (Psyllium 1 Packet) 1 packet PO DAILY PRN PRN PRN Reason: Constipation Pyridostigmine Baltic (Pyridostigmine Baltic 60 Mg Tablet) 30 mg PO Q8 [facility] Last Admin: 02/19/20 04:45 Dose: 30 mg Documented by: Sodium Chloride (0.9% Saline Lock 10 Ml Syringe) 10 - 40 ml IV UD PRN PRN Reason: SALINE FLUSH Last Admin: 02/18/20 21:58 Dose: 20 ml Documented by: Trazodone HCl (Trazodone 50 Mg Tablet) 50 mg PO QHS [facility] Last Admin: 02/18/20 21:40 Dose: 50 mg Documented by: Venlafaxine HCl (Venlafaxine Xr 150 Mg Capsule) 150 mg PO DAILY [facility] Last Admin: 02/19/20 09:09 Dose: 150 mg Documented by: Inpatient E&M: [id number] [facility] Hosp
--- NOTE | 2020-02-19 12:26 | PHA.DC.MC ---
Pharmacy Service has performed discharge medication reconciliation and counseling for this patient. The patient was counseled on the following discharge medications and changes in medications for homegoing were reviewed. 1. DECADRON The Reason for Use, instructions for use, and potential side effects were reviewed for all new medications. The patient's questions regarding all of their medications were answered. The patient was able to verbally demonstrate an understanding of their discharge medications. Home Medications Aspirin E.C. [Ecotrin] 81 mg PO DAILY 01/11/18 Baclofen [Lioresal] 10 mg PO QHS 06/30/18 venlafaxine 150 mg capsule,extended release 24 hr 150 mg PO DAILY #90 cap 09/06/18 buprenorphine 15 mcg/hour weekly transdermal patch 1 patch TRANSDERMAL SA 06/14/19 calcium acetate(phosphat bind) 667 mg tablet 667 mg PO BID #180 tab 07/06/19 Insulin Lispro [Humalog Kwikpen U-200] 45 unit SQ TIDCM 10/10/19 Isosorbide DN [Isordil] 30 mg PO BID 10/10/19 Metoprolol Tartrate 25 mg PO BID 10/10/19 Metoprolol Tartrate 50 mg PO BID 10/10/19 traZODone [Desyrel] 50 mg PO QHS 10/10/19 metoclopramide HCl 5 mg tablet 5 mg PO DAILY PRN PRN tab 10/20/19 atorvastatin 80 mg tablet 80 mg PO QHS #90 tab 10/24/19 Cholecalciferol (Vitamin D3) [Vitamin D3] 2,000 unit PO DAILY 02/16/20 Clopidogrel Bisulfate [Clopidogrel] 75 mg PO DAILY 02/16/20 Folic Acid 1 mg PO DAILY 02/16/20 Insulin Glargine,Hum.rec.anlog [Lantus Solostar] 100 unit SC QHS 02/16/20 Pantoprazole Sodium [Protonix] 40 mg PO DAILY 02/16/20 Pregabalin [Lyrica] 75 mg PO BID 02/16/20 Acetaminophen [Tylenol Tablet] 650 mg PO Q6H PRN PRN tab 02/19/20 dexAMETHasone [Dexamethasone] 6 mg PO DAILY #7 tab 02/19/20 The patient's discharge medication list was reviewed for discrepancies and discrepancies were resolved.
[2020-02-19 13:18] LABS: Pathologist Review Reviewed
[2020-02-19 13:22] LABS: Pathologist Review Reviewed
--- NOTE | 2020-02-19 13:39 | CASEMGMT ---
Addendum entered by Amie oPrter 02/19/20 14:28: Therapy walked pt again prior to discharge and stated pt's sat dropped to 87% on room air and pt needed 2 liters to get back up. Therapy also states that pt does not need any further therapy at discharge. Pt's sig other is here to pick her up and per Ronna, she can come get a tank from them so that pt can be discharged sooner. Pt already has a concentrator at home for 2 liters at bedtime. Pt aware and states is on phone with sig other at this time and she will send her over to get tank. [employer] aware and order to be sent once signed by ISHAAN. Pt will need 2liters with exertion. Tanna MOTA CM Original Note: Pt does not qualify for home oxygen at this time. Tanna MOTA CM
--- NOTE | 2020-02-20 15:36 | CASEMGMT ---
SVETLANA RAINEY Discharge Follow-up Phone Call: KIMI: Jinny Strata: 3 Call Date: 02/20/20 Discharge Date: 02/19/20 Time of Call: 1535 Duration: 3 min Admitting Diagnosis: Covid 19, hypoxia SVETLANA RAINEY completed follow-up phone call after recent hospitalization. Patient states she is doing well and resting. Patient had no questions or concerns regarding discharge instructions. Patient was able to fill prescriptions without any issues. Patient states [place] [facility] [place] Patient had no further questions or concerns at this time.
[2020-02-21 11:43] LABS: Angiotensin Convert Enzyme 45 U/L (14-82)
[2020-02-21 11:44] LABS: ANTINUCLEAR ANTIBODIES DIRECT Negative (Negative)
[2020-02-22 02:38] LABS: Rapid Plasmin Reagin (RPR) NONREACTIVE (NONREACTIVE)
[2020-02-28 16:22] LABS: ACHR AB Modulating <12 % (0-20); ACHR Recep AB, Blocking 21 % (0-25)
== END 2020-02-19 14:55 | disposition home or self-care (01) | DRG 178 ==
LOC: ED 15:04 → MS2 19:08 → PCU 02-17 13:58
PROVIDERS: Admitting Provider Internal Medicine; Emergency Provider Emergency Medicine; PCP Internal Medicine; Visit Provider Internal Medicine
DX: U07.1 COVID-19 (principal); J44.0 Chronic obstructive pulmonary disease with (acute) lower respiratory infection; J96.11 Chronic respiratory failure with hypoxia; I50.32 Chronic diastolic (congestive) heart failure; I13.0 Hypertensive heart and chronic kidney disease with heart failure and stage 1 through stage 4 chronic kidney disease, or unspecified chronic kidney disease; K51.90 Ulcerative colitis, unspecified, without complications; I25.10 Atherosclerotic heart disease of native coronary artery without angina pectoris; N18.30 Chronic kidney disease, stage 3 unspecified; E11.22 Type 2 diabetes mellitus with diabetic chronic kidney disease; I27.21 Secondary pulmonary arterial hypertension; E11.43 Type 2 diabetes mellitus with diabetic autonomic (poly)neuropathy; K31.84 Gastroparesis; G47.33 Obstructive sleep apnea (adult) (pediatric); M19.90 Unspecified osteoarthritis, unspecified site; E11.42 Type 2 diabetes mellitus with diabetic polyneuropathy; L40.9 Psoriasis, unspecified; E78.49 Other hyperlipidemia; Z95.1 Presence of aortocoronary bypass graft; Z87.891 Personal history of nicotine dependence; Z91.19 Patient's noncompliance with other medical treatment and regimen; Z93.2 Ileostomy status; T38.0X5A Adverse effect of glucocorticoids and synthetic analogues, initial encounter; E11.65 Type 2 diabetes mellitus with hyperglycemia; I65.23 Occlusion and stenosis of bilateral carotid arteries; F41.8 Other specified anxiety disorders
CPT/HCPCS: 36415; 70544; 70545; 70549; 70551; 71045; 80053; 80061; 82164; 82962; 83036; 83519; 83880; 84484; 85025; 85379; 86038; 86225; 86235; 86592; 87426; 87506; 87633; 93005; 97162; 97166; 97530; 97802; 99251; 99285; A9575; J7030; J7050; A4216; G0463; J2405

== ENCOUNTER → 2020-03-05 11:48 | Outpatient (CLI) | payer MEDICARE, MEDICAID, SELFPAY ==
[2019-06-22 12:51] VITALS: BMI 30.9
[2020-03-05 11:12] VITALS: BMI 30.8
[2020-03-07 03:40] LABS: Rapid Plasmin Reagin (RPR) NONREACTIVE (NONREACTIVE)
[2020-03-07 20:08] LABS: Chlamydia By Nucleic Acid AMP Negative (Negative)
[2020-03-08 07:50] LABS: Gonococcus By Nucleic Acid AMP Negative (Negative)
== END ==
PROVIDERS: PCP Internal Medicine; Referring Provider Internal Medicine; Visit Provider Internal Medicine
DX: A60.00 Herpesviral infection of urogenital system, unspecified (principal)
CPT/HCPCS: 36415; 86592; 87255; 87491; 87591

== ENCOUNTER 2020-03-15 19:03 | Inpatient (IN) | payer MEDICARE, MEDICAID, SELFPAY ==
[2019-06-22 12:51] VITALS: BMI 30.9
[2020-03-05 11:12] VITALS: BMI 30.8
[2020-03-15] VITALS (8 sets, daily range): BP systolic 128–142; BP diastolic 56–81; PULSE 82–109; RESP 17–26; TEMP 37.1–38.9; O2SAT 91–96; BMI 31.3; BMI 31.2
--- NOTE | 2020-03-15 19:31 | RAD_ITS ---
STUDY: X-RAY CHEST REASON FOR EXAM: Female, 59 years old. COUGH,SOB,FEVER. TREATED FOR COVID HERE LAST MONTH TECHNIQUE: Single AP portable view of the chest. COMPARISON: February 16, 2020 FINDINGS: Unresolved mild to moderate irregular infiltrates scattered throughout both lungs. There is no demonstrated pleural abnormality. Sternal cerclage wires and vascular clips are present from a prior sternotomy and coronary artery bypass graft procedure (CABG). Normal heart size. Stable mediastinal and osseous structures. There is no demonstrated abnormality of the visualized soft tissue structures of the upper abdomen. RAD/Chest 1 View (Portable) IMPRESSION: Unresolved mild to moderate pneumonic infiltrates of both lungs Electronically Signed: Srini Summers MD at 21:05 EST , Service support ,
--- NOTE | 2020-03-15 19:31 | EKG12_ITS ---
Test Reason : CP Blood Pressure : / mmHG Vent. Rate : 097 BPM Atrial Rate : 097 BPM P-R Int : 160 ms QRS Dur : 086 ms QT Int : 346 ms P-R-T Axes : 014 -26 129 degrees QTc Int : 439 ms Normal sinus rhythm Left ventricular hypertrophy with repolarization abnormality Abnormal ECG Confirmed by CHLOÉ DOMINGUEZ, AL ([id number]), marketing editor ISABELLA BUTLER ([id number]) on 03/18/2020 10:22:21 AM Referred By: KYLER Confirmed By:AL LUEVANO MD
[2020-03-15] MEDS: Acetaminophen 500 MG Tablet 1000 MG PO (19:38)
[2020-03-15] MEDS: Ipratropium/Albuterol Sulfate 3 ML AMPUL.NEB INHALATION (19:38)
[2020-03-15] MEDS: 0.9% Normal Saline 1,000 ML 999 ML IV (19:39)
[2020-03-15 19:55] LABS: Hematocrit 33.2 % (37-47); Hemoglobin 10.8 g/dL (12.0-15.0); Mean Corp Hgb Conc 32.5 g/dL (32-36); Mean Corpuscular Hgb 27.9 pg (27.0-32.0); Mean Corpuscular Volume 85.8 fL (81-99); Mean Platelet Vol. 11.8 fl (6.2-12.0); POSITIVE COUNT YES; POSITIVE MORPHOLOGY YES; Platelet Count 206 K/mm3 (150-450); RBC Distribution Width CV 16.2 % (11.6-14.6); RBC Distribution Width SD 48.8 fl (35.1-43.9); Red Blood Count 3.87 M/mm3 (4.2-5.4); White Blood Count 6.9 K/mm3 (4.4-11.0)
[2020-03-15 20:01] LABS: International Normalized Ratio 1.1; Prothrombin Time (Protime)PT. 13.4 SECONDS (11.7-14.9)
[2020-03-15 20:07] LABS: ALB/GLOB Ratio 0.5 RATIO (0.9-2.4); AST(SGOT) 19 U/L (15-37); Alanine Aminotransfer ALT/SGPT 21 U/L (13-56); Albumin, Serum 2.5 g/dL (3.2-5.0); Alkaline Phosphatase 135 U/L (45-117); Anion Gap 5 (5-15); BUN 16 mg/dL (7-18); Calcium,Total 8.7 mg/dL (8.5-10.1); Chloride 106 mmol/L (98-107); Creatinine, Serum 1.46 mg/dL (0.55-1.02); Differential Indicated MANUAL DIFF; EST Glomerular Filtration Rate 39 mL/min (>60); Est Glom Filt Rate - Afr Amer 47 mL/min (>60); Estimated Creatinine Clearance 39.35 ml/min; Globulin 4.9 g/dL (2.2-4.2); Glucose 250 mg/dL (74-106); Potassium 3.9 mmol/L (3.5-5.1); Protein, Total 7.4 g/dL (6.4-8.2); Sodium Level 137 mmol/L (136-145)
[2020-03-15 20:20] LABS: Lactic Acid 2.9 mmol/L (0.4-1.9)
[2020-03-15 20:31] LABS: Eosinophil 5 % (0-5); Lymphocyte 36 % (19-41); Monocyte 5 % (0-10); Myelocyte 1 (0-0); Neutrophil-Band 3 % (0-5); Neutrophil-Segmented 50 % (47-70); Total Cells Counted 100 (MANUAL DIFF)
[2020-03-15 20:33] LABS: Absolute Lymphocyte Count 2.49 X10^3/uL (0.83-4.51); Absolute Neutrophil Count 3.7 X10^3/uL (2.0-7.7)
[2020-03-15 21:19] LABS: Mucous, Urine 0 SEEN /hpf (<or=2+); Red Blood Cells-Urine 0 SEEN /hpf (0-5)
[2020-03-15 21:23] LABS: Color, Urine Amber (Yellow); Glucose, Dipstick 50 mg/dl (Normal); Ketone-Dipstick 5 mg/dl (Negative); Leukocyte Esterase-Dipstick 25 /ul (Negative); Nitrite-Dipstick Negative (Negative); Occult Blood-Urine 10 /ul (Negative); Protein-Dipstick 100 mg/dl (Negative); Urine Bilirubin Dipstick Negative (Negative); Urine Clarity Clear (Clear); Urine Urobilinogen 1 mg/dl (Normal)
--- NOTE | 2020-03-15 21:42 | ED.DCSUM_ITS ---
- ER Visit Summary Date of Service: 03/15/20 Chief Complaint: Shortness of breath History of Present Illness: The patient is a 59 F with shortness of breath, increasing over the past week. Came on gradually. Associated with chest tightness, fever, cough. Patient had COVID-19 last month and was feeling well the week prior to this. She also has a history of coronary disease, bypass, COPD, CKD, ulcerative colitis. She takes aspirin and Plavix among her other medications. Physical Examination: Temperature 102.1. Heart rate 109, respiratory rate 26, pulse ox 93% on 2 L, her home oxygen level. She is alert and oriented. Appears uncomfortable but not toxic or in distress. Lungs show very mild wheezing bilaterally. Heart is tachycardic. Abdomen is soft. Skin is unremarkable. Test Results: EKG shows sinus rhythm at a rate of [address] changes and LVH. Hemoglobin 10.8, glucose 250, creatinine 1.46, alkaline phosphatase 135, coags unremarkable. Urinalysis pending. Troponin normal. Lactate 2.9. Cultures pending. Covid negative. Chest x-ray reviewed by the radiologist and me showed mild to moderate bilateral pneumonia. Emergency Department Course and Treatment: Patient was treated with IV fluids, Tylenol, DuoNeb. Stable reevaluation. Patient meets SIRS criteria. Based on her symptoms, there is concern for pneumonia. Will cover with antibiotics and contact the hospitalist for admission. She meets criteria for HCAP and will treat with azactam and vancomycin. On reevaluation her HR is in the 90s, BP stable, afebrile, remains on 2L. Treatment Plan: As above Disposition: Admission Impression: Sepsis, pneumonia This note was generated with [employer] dictation software. It may contain incorrect words, spelling, and punctuation that were not noted in review of the chart prior to signing ED Disposition - Plan for ED Patient: Referrals: Mala Mcgrath MD [Primary Care Provider] -
[2020-03-15 21:46] LABS: Squamous Epithelial Cells - UA 0-5 SEEN /hpf (5-10); White Blood Cells 0-5 SEEN /hpf (0-5)
[2020-03-15 21:48] LABS: Bacteria RARE /hpf (None Seen)
--- NOTE | 2020-03-15 22:09 | HP.PCM_ITS ---
History of Present Illness Date of Admission: 03/15/20 Chief Complaint: Fever, hypoxia ongoing for 1 week The patient is a 59 year old F with past medical history of type II DM, hypertension, ANKITA, CAD status post CABG, history of ulcerative colitis who was recently discharged after COVID-19 pneumonia. Patient was discharged home on 2 L oxygen. Has been in her usual state of health until a week ago when she started having low-grade fevers. Her T-max was 101.6F. She also noted that she was dropping her oxygen levels to 74%. She had associated pleuritic chest pain with chest tightness and cough. Denied any diarrhea or nausea or vomiting or abdominal pain. Vital signs were unremarkable. She was saturating well on 2 L of oxygen. Admitting blood work was also unremarkable except for lactic acid of 2.9. Her creatinine was close to her baseline. Her D-dimer was elevated at 1.26. UA was unremarkable. This x-ray showed mild to moderate pulmonary infiltrates of both lungs that appeared unresolved compared to previous. COVID-19 rapid antigen was negative. Past Medical History Past Medical History (Chronic Problems): Chronic Problems (Last Reviewed 03/05/20 @ 11:23 by Erica Kidd) Flu vaccine need (Chronic) Abdominal pain (Chronic) 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) Benign essential hypertension (Chronic) Diabetic gastroparesis (Chronic) Diabetes (Chronic) Secondary pulmonary arterial hypertension (Chronic) Chronic diastolic (congestive) heart failure (Chronic) BMI 31.0-31.9,adult (Chronic) Depression with anxiety (Chronic) Gastroenteritis (Chronic) Arthritis (Chronic) Essential (primary) hypertension (Chronic) Atherosclerosis of coronary artery bypass graft without angina pectoris (Chronic) CABG x 4 JONES-LAD, SVG-D1, SVG-OM1, SVG-LPDA 05/18/2012 PCI-CLINTON mid D1 with a 2.25 x 12 Promus Synergy 01/12/2018 Mid LAD and Cx 08/30/2012, D1 and prox OM1 09/14/12, Prox SVG, Distal SVG to the Mid OM 10/31/2012 COPD (chronic obstructive pulmonary disease) (Chronic) Anemia of chronic renal failure, stage 3 (moderate) (Chronic) Obstructive sleep apnea (Chronic) Noncompliant Right thyroid nodule (Chronic) 1.4 centimeter right sided nodule on CT scan Ulcerative colitis (Chronic) Hyperlipidemia (Chronic) DM2 (diabetes mellitus, type 2) (Chronic) Medical History: Medical History (Last Reviewed 03/05/20 @ 11:23 by Erica Kidd) Secondary pulmonary arterial hypertension (Chronic) I27.21 Chronic diastolic (congestive) heart failure (Chronic) I50.32 Depression with anxiety (Chronic) F41.8 Essential (primary) hypertension (Chronic) I10 Atherosclerosis of coronary artery bypass graft without angina pectoris (Chronic) I25.810 CABG x 4 JONES-LAD, SVG-D1, SVG-OM1, SVG-LPDA 05/18/2012 PCI-CLINTON mid D1 with a 2.25 x 12 Promus Synergy 01/12/2018 Mid LAD and Cx 08/30/2012, D1 and prox OM1 09/14/12, Prox SVG, Distal SVG to the Mid OM 10/31/2012 COPD (chronic obstructive pulmonary disease) (Chronic) J44.9 Anemia of chronic renal failure, stage 3 (moderate) (Chronic) N18.3, D63.1 Obstructive sleep apnea (Chronic) G47.33 Noncompliant Gastroparesis (Suspected) K31.84 Right thyroid nodule (Chronic) E04.1 1.4 centimeter right sided nodule on CT scan Ulcerative colitis (Chronic) K51.90 Hyperlipidemia (Chronic) E78.5 DM2 (diabetes mellitus, type 2) (Chronic) E11.9 CKD (chronic kidney disease) stage 3, GFR 30-59 ml/min N18.3 Chronic renal insufficiency N18.9 Depression F32.9 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 HTN (hypertension) I10 Hypertensive chronic kidney disease with stage 1 through stage 4 chronic kidney disease, or unspecified chronic kidney disease I12.9 Menieres disease H81.09 Psoriasis L40.9 Thyroid mass E07.9 Type 2 diabetes mellitus with diabetic polyneuropathy E11.42 Vertigo R42 Chronic respiratory failure J96.10 Lumbar back pain (Resolved) M54.5 Syncope R55 Allergies ciprofloxacin Allergy (Intermediate, Verified 03/15/20 19:04) Swelling cinnamon [Cinnamon] Allergy (Verified 03/15/20 19:04) Anaphylaxis Influenza Virus Vaccines Allergy (Verified 03/15/20 19:04) Shortness of breath liraglutide [From Victoza] Allergy (Verified 03/15/20 19:04) Anaphylaxis metronidazole [From Flagyl] Allergy (Verified 03/15/20 19:04) Hives Metronidazole HCl [From Flagyl] Allergy (Verified 03/15/20 19:04) Hives Penicillins Allergy (Verified 03/15/20 19:04) Hives Sulfa (Sulfonamide Antibiotics) Allergy (Verified 03/15/20 19:04) Hives codeine Adverse Reaction (Verified 03/15/20 19:04) Stops Ileostomy metformin HCl [From Glucophage] Adverse Reaction (Verified 03/15/20 19:04) Nausea ranolazine Adverse Reaction (Verified 03/15/20 19:04) Nausea/Vom/Diarrhea Gdclfvw-[id number]-Fkk Reductase Inhibitor Adverse Reaction (Verified 03/15/20 19:04) Nausea/joints ache Home Medications: Ambulatory Orders Medication Instructions Recorded Aspirin E.C. [Ecotrin] 81 mg PO DAILY 01/11/18 Baclofen [Lioresal] 10 mg PO QHS 06/30/18 venlafaxine 150 mg 150 mg PO DAILY #90 cap 09/06/18 capsule,extended release 24 hr buprenorphine 15 mcg/hour weekly 1 patch TD SA 06/14/19 transdermal patch calcium acetate(phosphat bind) 667 667 mg PO BID #180 tab 07/06/19 mg tablet Insulin Lispro [Humalog Kwikpen 45 unit SQ TIDCM 10/10/19 U-200] Metoprolol Tartrate 25 mg PO BID 10/10/19 Metoprolol Tartrate 50 mg PO BID 10/10/19 traZODone [Desyrel] 50 mg PO QHS 10/10/19 metoclopramide HCl 5 mg tablet 5 mg PO DAILY PRN PRN tab 10/20/19 atorvastatin 80 mg tablet 80 mg PO QHS #90 tab 10/24/19 Cholecalciferol (Vitamin D3) 2,000 unit PO DAILY 02/16/20 [Vitamin D3] Clopidogrel Bisulfate [Clopidogrel] 75 mg PO DAILY 02/16/20 Folic Acid 1 mg PO DAILY 02/16/20 Insulin Glargine,Hum.rec.anlog 100 unit SC QHS 02/16/20 [Lantus Solostar] Pantoprazole Sodium [Protonix] 40 mg PO DAILY 02/16/20 Acetaminophen [Tylenol Tablet] 650 mg PO Q6H PRN PRN tab 02/19/20 isosorbide dinitrate 30 mg tablet 30 mg PO BID #180 tab 02/27/20 valacyclovir 1 gram tablet 1,000 mg PO Q12H #14 tab 03/05/20 flash glucose sensor See Rx Instructions .ROUTE 03/09/20 .MEDSUPPLY #2 ea pregabalin 75 mg capsule 75 mg PO BID #60 cap 03/15/20 Surgical History: Surgical History (Last Reviewed 03/05/20 @ 11:23 by Erica Kidd) H/O coronary artery bypass surgery (Resolved) Onset Date: 05/18/12 Z95.1 CABG x 4 JONES-LAD, SVG-D1, SVG-OM1, SVG-LPDA 05/18/2012 History of coronary artery stent placement (Resolved) Onset Date: 01/12/18 Z95.5 PCI-CLINTON mid D1 with a 2.25 x 12 Promus Synergy 01/12/2018 Mid LAD and Cx 08/30/2012, D1 and prox OM1 09/14/12, Prox SVG, Distal SVG to the Mid OM 10/31/2012 H/O sinus surgery Z98.890 Ileostomy status Z93.2 ABD abscess removal 09/18/2017 H/O colectomy Z98.890, Z90.49 H/O total hysterectomy Z98.890, Z90.710 History of cholecystectomy Z90.49 history closed fissure ileostomy left thumb surgery lysis of adhesion vestibular nerve surgery for Meniere's Surgical History: angioplasty, coronary bypass surgery - Status post 12 stents, hysterectomy, - - 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, status post ileostomy, status post left arm surgery, status post ileostomy reversal, post sinus surgery Psychiatric History: Anxiety, Depression 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 Smoking Status: Former smoker - *Family History Maternal Family History: Family History (Last Reviewed 03/05/20 @ 11:23 by Eirca Kidd) Mother CVA (cerebral vascular accident) Diabetes Brother Heart disease Myocardial infarction Pancreatitis Father Cancer Lymphoma Grandmother Myocardial infarction Sister COPD (chronic obstructive pulmonary disease) History Items: Diabetes, Heart Disease, - - No autoimmune disease that she is aware of Paternal Family History: Family History (Last Reviewed 03/05/20 @ 11:23 by Erica Kidd) Mother CVA (cerebral vascular accident) Diabetes Brother Heart disease Myocardial infarction Pancreatitis Father Cancer Lymphoma Grandmother Myocardial infarction Sister COPD (chronic obstructive pulmonary disease) History Items: Cancer - Father has H/o lymphoma, - - No autoimmune disease that she is aware of Review of Systems Constitutional: Reports: Anorexia, Chills, Fever, Malaise, Weakness, Fatigue. Denies: Weight Change Eyes: Denies: Blurred vision, Cataracts, Conjunctivae Inflammation HEENT: Denies: Difficulty Hearing, Difficulty Swallowing, Head Aches, Hearing Changes, Sinus Congestion, Sinus Drainage Cardiovascular: Reports: Chest Pain. Denies: Claudication, Chest Pressure, Chest Tightness, Edema, Light Headedness, Orthopnea, Palpitations, Paroxysmal Noc. Dyspnea Respiratory: Reports: Cough, Pleuritic Pain, Shortness of Breath, Shortness of breath at rest, Shortness of breath upon exertion. Denies: Hemoptysis, Sputum production Gastrointestinal: Denies: Abdominal Pain, Constipation, Diarrhea, Hematemesis, Hematochezia, Nausea, Melena, Vomiting Genitourinary: Denies: Dysuria, Frequency, Incontinence, Nocturia Musculoskeletal: Denies: Joint Pain, Joint stiffness, Joint swelling, Joint Tenderness Skin: Denies: Pruritis, Rash, Wounds Neurological: Denies: Difficulty swallowing, Focal weakness, Numbness, Tingling Psychiatric: Denies: Anxiety, Depression, Homicidal Ideations, Suicidal Ideations Hematologic/ Lymphatic: Denies: Easy Bruising, Easy Bleeding VTE Information - Inpt Only VTE Present on Admission: No VTE Pharm Prophylaxis ordered?: Yes - Physical Exam Vitals/I&O's: Vital Signs Temp Pulse Resp BP Pulse Ox 99.2 F H 87 18 135/56 H 95 03/15/20 21:43 03/15/20 21:43 03/15/20 21:43 03/15/20 21:43 03/15/20 21:43 Oxygen Flow Rate (L/min) 2 Oxygen Delivery Method Nasal Cannula Weight: 90.718 kg Body Mass Index (BMI) 31.3 Finger Stick Blood Glucose 463 Intake and Output for Last 24 Hours 03/13/20 03/14/20 03/15/20 23:59 23:59 23:59 Intake Total 999 / 999 Balance 999 / 999 General: Alert, Oriented x3, Cooperative, No apparent distress, - - on 2L oxygen HEENT: Atraumatic, PERRLA, EOMI, Normocephalic Oral: Moist Mucosa Neck: Supple Lungs: Diminished Cardiovascular: Regular rate, Regular Rhythm, Normal S1, Normal S2, No murmurs Abdomen: Bowel Sounds Present, Soft, Non Tender, Non-Distended, No Hepato- splenomegaly Extremities: No edema Skin: No rashes Musculoskeletal: No Tenderness to Palpation of Joints or Extremities Lymphatic: No Cervical, Supraclavicular, or Inguinal Adenopathy Neurological: Cranial nerves II-XII grossly intact, Neuro grossly intact Psych/Mental Status: Normal Affect, Appropriate Microbiology Past 72 Hours 03/15/20 19:40 Mucosa - Nose SARS-CoV-2 Antigen (Rapid) - Final Laboratory Results 03/15/20 19:20: WBC 6.9, RBC 3.87 L, Hgb 10.8 L, Hct 33.2 L, MCV 85.8, MCH 27.9, MCHC 32.5, RDW Std Deviation 48.8 H, RDW Coeff of Jan 16.2 H, Plt Count 206, MPV 11.8, Neut % (Auto) Not Reportable, Absolute Neuts (auto) 3.7, Absolute Lymphs (auto) 2.49, Total Counted 100, Neutrophils % (Manual) 50, Band Neutrophils % 3, Lymphocytes % (Manual) 36, Monocytes % (Manual) 5, Eosinophils % (Manual) 5, Myelocytes % 1 H, Diff Path Review July03/15/20 19:20: PT 13.4, INR 1.1, APTT 55.0 H 03/15/20 19:20: Sodium 137, Potassium 3.9, Chloride 106, Carbon Dioxide 26.0, Anion Gap 5, BUN 16, Creatinine 1.46 H, Estim Creat Clear Calc 39.35, Est GFR (MDRD) Af Amer 47 L, Est GFR (MDRD) Non-Af 39 L, BUN/Creatinine Ratio 11.0, Glucose 250 H, Calcium 8.7, Total Bilirubin 0.70, AST 19, ALT 21, Alkaline Phosp hatase 135 H, Troponin I < 0.015, Total Protein 7.4, Albumin 2.5 L, Globulin 4.9 H, Albumin/Globulin Ratio 0.5 L 03/15/20 19:20: Lactic Acid 2.9 H* 03/15/20 21:15: Urine Color Kath, Urine Clarity Clear, Urine pH 6.0, Ur Specific [place] 1.020, Urine Protein 100 H, Urine Glucose (UA) 50 H, Urine Ketones 5 H, Urine Occult Blood 10 H, Urine Nitrite Negative, Urine Bilirubin Negative, Urine Urobilinogen 1 H, Ur Leukocyte Esterase 25 H, Urine RBC 0 SEEN, Urine WBC 0-5 SEEN, Ur Squamous Epith Cells 0-5 SEEN, Urine Bacteria RARE, Urine Mucus 0 SEEN Current Medications Aztreonam 2 gm/ Sodium (Chloride) 100 mls @ 150 mls/hr IV X1 ONE Stop: 03/15/20 22:29 Vancomycin HCl 1,250 mg/ (Sodium Chloride) 275 mls @ 167 mls/hr IV X1 ONE Stop: 03/15/20 23:38 Assessment/Plan All Active Problems (Last Reviewed 03/05/20 @ 11:23 by Erica Kidd) COVID-19 virus infection (Acute) Pneumonia due to COVID-19 virus (Acute) Hypoxia (Acute) Pancreatitis (Resolved) H/O coronary artery bypass surgery (Resolved 05/18/12) History of coronary artery stent placement (Resolved 01/12/18) Abdominal pain (Resolved) Acute pancreatitis (Resolved) COPD exacerbation (Resolved) Chest pain (Resolved) Chest pain (Resolved) Hallucinations (Resolved) Hypokalemia (Resolved) Irritant dermatitis (Resolved) Lumbar back pain (Resolved) Multiple falls (Resolved) Sepsis (Resolved) Shortness of breath (Resolved) Surgical wound dehiscence (Resolved) 1. Fever likely secondary to post viral pneumonia, and recently admitted and discharged with COVID-19 pneumonia Patient still has fevers. Repeat chest x-ray shows on unresolved pulmonary infiltrates. Started on IV antibiotics, continue vancomycin and aztreonam; patient has allergy to penicillin?hives Will continue same, check respiratory panel, encourage use of incentive spirometer 2. Lactic acidosis secondary to hypoxia, admitting lactic acid 2.9, Not secondary to sepsis, continue on IV fluids, repeat lactic acid per protocol 3. Elevated D-dimer concerning for possible PE Patient however has CKD stage III, will hydrate patient, repeat blood work in a.m. Start on therapeutic Lovenox in the meantime Consider CTA of the chest to rule out acute PE; if renal panel remains stable 4. Type II DM complicated by peripheral neuropathy Continue on Lantus, premeal Lispro insulin as well as insulin sliding scale Continue on pregabalin, metoclopramide 5. Hypertension/hyperlipidemia/CAD status post CABG/CKD stage III/ANKITA Continue on aspirin, statin, Plavix, isosorbide, metoprolol 6. Anxiety/depression, continue venlafaxine 7. DVT prophylaxis -continue on therapeutic Lovenox Inpatient E&M: 74251 Init Hosp L3
[2020-03-15 23:12] LABS: D-Dimer Quantitative (DVT/PE) 1.26 FEU/ug/m (0.27-0.49)
[2020-03-15 23:31] LABS: Bedside Glucose 255 mg/dL (70-110)
[2020-03-15 23:46] LABS: Reflex Lactate? Y
[2020-03-16] VITALS (13 sets, daily range): BP systolic 127–183; BP diastolic 54–82; PULSE 71–106; RESP 16–30; TEMP 36.6–37.9; O2SAT 92–96
[2020-03-16] MEDS: 0.9% Normal Saline 1,000 ML 125 ML IV (00:30)
[2020-03-16] MEDS: Enoxaparin 100 MG/ML Syringe 90 MG SC ×2 (00:30→06:16)
--- NOTE | 2020-03-16 00:44 | PCM.RX.CS ---
Consult Pharmacy has been consulted to manage selected antiobiotic: Vancomycin Type of Consult: New start Suspected Infection: Pneumonia Prior Doses of Antibiotics Received/Current Regimen: Medications Vancomycin HCl 1,250 mg/ (Sodium Chloride) 275 mls @ 167 mls/hr IV Q24H KIRSTEN Discontinued Medications Vancomycin HCl 1,250 mg/ (Sodium Chloride) 275 mls @ 167 mls/hr IV X1 ONE Stop: 03/15/20 23:38 Last Admin: 03/15/20 23:16 Dose: 167 mls/hr Labs: Sodium 137 mmol/L (136-145) 03/15/20 19:20 Potassium 3.9 mmol/L (3.5-5.1) 03/15/20 19:20 Chloride 106 mmol/L (98-107) 03/15/20 19:20 Carbon Dioxide 26.0 mmol/L (21.0-32.0) 03/15/20 19:20 Anion Gap 5 (5-15) 03/15/20 19:20 BUN 16 mg/dL (7-18) 03/15/20 19:20 Creatinine 1.46 mg/dL (0.55-1.02) H 03/15/20 19:20 Est GFR (MDRD) Af Amer 47 mL/min (>60) L 03/15/20 19:20 Est GFR (MDRD) Non-Af 39 mL/min (>60) L 03/15/20 19:20 BUN/Creatinine Ratio 11.0 RATIO (10-20) 03/15/20 19:20 Glucose 250 mg/dL (74-106) H 03/15/20 19:20 Microbiology: Microbiology 03/15/20 19:40 Mucosa - Nose SARS-CoV-2 Antigen (Rapid) - Final Weight used for dosin.6 kg Estimated Creatinine Clearance: 39.4 Goal Trough: 15-20 mcg/mL Pharmacy Plan for Drug Dosing: Pharmacy Service will continue to monitor and adjust dosing as required. Follow-Up Labs: Trough Vancomycin Labs to be done on [date and time ordered]: 03/17/20 @2300
[2020-03-16 00:55] LABS: Lactic Acid 2.5 mmol/L (0.4-1.9)
[2020-03-16 03:19] LABS: Hematocrit 29.9 % (37-47); Hemoglobin 9.7 g/dL (12.0-15.0); Mean Corp Hgb Conc 32.4 g/dL (32-36); Mean Corpuscular Hgb 28.1 pg (27.0-32.0); Mean Corpuscular Volume 86.7 fL (81-99); Mean Platelet Vol. 11.7 fl (6.2-12.0); POSITIVE COUNT YES; POSITIVE MORPHOLOGY YES; Platelet Count 171 K/mm3 (150-450); RBC Distribution Width CV 16.3 % (11.6-14.6); Red Blood Count 3.45 M/mm3 (4.2-5.4); White Blood Count 5.8 K/mm3 (4.4-11.0)
[2020-03-16 03:20] LABS: Differential Indicated MANUAL DIFF
[2020-03-16 04:09] LABS: ALB/GLOB Ratio 0.5 RATIO (0.9-2.4); AST(SGOT) 18 U/L (15-37); Alanine Aminotransfer ALT/SGPT 15 U/L (13-56); Albumin, Serum 2.1 g/dL (3.2-5.0); Alkaline Phosphatase 116 U/L (45-117); Anion Gap 6 (5-15); BUN 18 mg/dL (7-18); BUN/Creat Ratio 13.2 RATIO (10-20); Calcium,Total 7.9 mg/dL (8.5-10.1); Chloride 107 mmol/L (98-107); Creatinine, Serum 1.36 mg/dL (0.55-1.02); EST Glomerular Filtration Rate 42 mL/min (>60); Est Glom Filt Rate - Afr Amer 51 mL/min (>60); Estimated Creatinine Clearance 42.24 ml/min; Globulin 4.2 g/dL (2.2-4.2); Glucose 290 mg/dL (74-106); Potassium 4.3 mmol/L (3.5-5.1); Protein, Total 6.3 g/dL (6.4-8.2); Sodium Level 138 mmol/L (136-145)
[2020-03-16 04:16] LABS: Metamyelocyte 1 % (0-1); Neutrophil-Band 2 % (0-5); Neutrophil-Segmented 54 % (47-70); Total Cells Counted 100 (MANUAL DIFF)
[2020-03-16 04:17] LABS: Eosinophil 4 % (0-5); Lymphocyte 31 % (19-41); Monocyte 8 % (0-10); Nucleated Red Bld Cells,Manual 2 % (0-5)
[2020-03-16 04:18] LABS: Absolute Neutrophil Count 3.3 X10^3/uL (2.0-7.7); Atypical Lymphocyte 1+ %; Neutrophil # 3.26 X10^3/uL (2.7-7.7)
[2020-03-16 04:19] LABS: Platelet Estimate ADEQUATE (ADEQ); Red Cell Morphology NORM C+C NORMAL (NORM C&C)
[2020-03-16] MEDS: Insulin Lispro 100 UNIT/ML INSULN.PEN 45 UNIT SC ×3 (06:22→16:52)
[2020-03-16] MEDS: Insulin Lispro 100 UNIT/ML INSULN.PEN SC ×4 (06:23→21:10)
[2020-03-16] MEDS: Metoprolol Tartrate 25 MG Tablet 75 MG PO ×2 (06:35→21:13)
[2020-03-16 07:01] LABS: Bedside Glucose 258 mg/dL (70-110)
[2020-03-16 07:14] LABS: Reflex Lactate? Y
--- NOTE | 2020-03-16 08:07 | PCM.PROGNOTE ---
Subjective: Chief complaint: Follow-up after admission for probable healthcare associated pneumonia, recent COVID-19 pneumonia and elevated D-dimer. Patient seen and examined. No acute events overnight. She is still complaining of shortness of breath at rest with wheezing, still having cough without sputum production. She has been having spikes of fever overnight. Her blood pressure is elevated, heart rate stable, pulse ox is 96% on 2 L. - Physical Exam Vitals/I&O's: Vital Signs Temp Pulse Resp BP Pulse Ox 99.0 F 80 18 183/70 H 96 03/16/20 05:00 03/16/20 06:35 03/16/20 05:00 03/16/20 06:35 03/16/20 05:00 Oxygen Flow Rate (L/min) 2 Oxygen Delivery Method Nasal Cannula Weight: 199 lb 11.821 oz Body Mass Index (BMI) 31.2 Finger Stick Blood Glucose 463 Intake and Output for Last 24 Hours 03/14/20 03/15/20 03/16/20 23:59 23:59 23:59 Intake Total 1100 / 1100 275 / 275 Balance 1100 / 1100 275 / 275 General: Alert, Oriented x3, Cooperative, - - Mildly short of breath. HEENT: Atraumatic, PERRLA, EOMI, Normocephalic Oral: Moist Mucosa, No Gingival or Mucosal Lesions/ Ulcerations Neck: Supple, No JVD, Negative Carotid Bruits, Trachea Midline, Thyroid Normal Size and Texture Lungs: No rales, Diminished, Short of Breath, Wheezes, - - Decreased breath sounds bilateral, end expiratory wheezes. Cardiovascular: Regular rate, Regular Rhythm, Normal S1, Normal S2, PMI Normal Abdomen: Bowel Sounds Present, Soft, Non Tender, Non-Distended, No Hepato-splenomegaly, Obese Extremities: No clubbing, No cyanosis, No edema Skin: No rashes, No breakdown Lymphatic: No Cervical, Supraclavicular, or Inguinal Adenopathy Neurological: Cranial nerves II-XII grossly intact, Motor Exam 5/5 strength throughout Psych/Mental Status: Normal Affect, Appropriate, Alert and oriented to time, place, person, mood and affect Microbiology Past 72 Hours 03/16/20 00:40 Mucosa - Nasopharyngeal Respiratory Panel (PCR) - Final 03/15/20 19:40 Mucosa - Nose SARS-CoV-2 Antigen (Rapid) - Final Laboratory Results 03/15/20 19:20: WBC 6.9, RBC 3.87 L, Hgb 10.8 L, Hct 33.2 L, MCV 85.8, MCH 27.9, MCHC 32.5, RDW Std Deviation 48.8 H, RDW Coeff of Jan 16.2 H, Plt Count 206, MPV 11.8, Neut % (Auto) Not Reportable, Absolute Neuts (auto) 3.7, Absolute Lymphs (auto) 2.49, Total Counted 100, Neutrophils % (Manual) 50, Band Neutrophils % 3, Lymphocytes % (Manual) 36, Monocytes % (Manual) 5, Eosinophils % (Manual) 5, Myelocytes % 1 H, Diff Path Review July03/15/20 19:20: PT 13.4, INR 1.1, APTT 55.0 H 03/15/20 19:20: Sodium 137, Potassium 3.9, Chloride 106, Carbon Dioxide 26.0, Anion Gap 5, BUN 16, Creatinine 1.46 H, Estim Creat Clear Calc 39.35, Est GFR (MDRD) Af Amer 47 L, Est GFR (MDRD) Non-Af 39 L, BUN/Creatinine Ratio 11.0, Glucose 250 H, Calcium 8.7, Total Bilirubin 0.70, AST 19, ALT 21, Alkaline Phosphatase 135 H, Troponin I < 0.015, Total Protein 7.4, Albumin 2.5 L, Globulin 4.9 H, Albumin/Globulin Ratio 0.5 L 03/15/20 19:20: Lactic Acid 2.9 H* 03/15/20 19:22: D-Dimer Quant (PE/DVT) 1.26 H* 03/15/20 21:15: Urine Color Kath, Urine Clarity Clear, Urine pH 6.0, Ur Specific Etta 1.020, Urine Protein 100 H, Urine Glucose (UA) 50 H, Urine Ketones 5 H, Urine Occult Blood 10 H, Urine Nitrite Negative, Urine Bilirubin Negative, Urine Urobilinogen 1 H, Ur Leukocyte Esterase 25 H, Urine RBC 0 SEEN, Urine WBC 0-5 SEEN, Ur Squamous Epith Cells 0-5 SEEN, Urine Bacteria RARE, Urine Mucus 0 SEEN 03/15/20 23:26: POC Glucose 255 H 03/16/20 00:05: Lactic Acid 2.5 H* 03/16/20 03:05: WBC 5.8, RBC 3.45 L, Hgb 9.7 L, Hct 29.9 L, MCV 86.7, MCH 28.1, MCHC 32.4, RDW Std Deviation 50.0 H, RDW Coeff of Jan 16.3 H, Plt Count 171, MPV 11.7, Neut % (Auto) Not Reportable, Absolute Neuts (auto) 3.3, Absolute Lymphs (auto) 1.80, Total Counted 100, Neutrophils % (Manual) 54, Band Neutrophils % 2, Lymphocytes % (Manual) 31, Monocytes % (Manual) 8, Eosinophils % (Manual) 4, Metamyelocytes % 1, Nucleated RBCs/100 WBC 2, Diff Path Review May foll, Atypical Lymphocytes 1+, Platelet Estimate ADEQUATE, RBC Morphology NORM C+C 03/16/20 03:05: Sodium 138, Potassium 4.3, Chloride 107, Carbon Dioxide 25.0, Anion Gap 6, BUN 18, Creatinine 1.36 H, Estim Creat Clear Calc 42.24, Est GFR (MDRD) Af Amer 51 L, Est GFR (MDRD) Non-Af 42 L, BUN/Creatinine Ratio 13.2, Glucose 290 H, Calcium 7.9 L, Total Bilirubin 0.60, AST 18, ALT 15, Alkaline Phosphatase 116, Total Protein 6.3 L, Albumin 2.1 L, Globulin 4.2, Albumin/Globulin Ratio 0.5 L 03/16/20 03:05: Lactic Acid 2.0 03/16/20 06:22: POC Glucose 258 H Clinical Impression(s) from Imaging Studies Chest X-Ray 03/15/20 19:31 IMPRESSION: Unresolved mild to moderate pneumonic infiltrates of both lungs Electronically Signed: Srini Summers MD at 21:05 EST , Service support , Current Medications Acetaminophen (Acetaminophen 325 Mg Tablet) 650 mg PO Q6H PRN PRN PRN Reason: Pain Score 1-10/Temp > 100.7 F Acyclovir (Acyclovir 200 Mg Capsule) 400 mg PO TID KIRSTEN Last Admin: 03/16/20 06:19 Dose: Not Given Documented by: Albuterol Sulfate (Albuterol 2.5 Mg/3 Ml Vial.Neb.) 2.5 mg INHALATION Q2H PRN PRN PRN Reason: SOB/Wheezing Aspirin (Aspirin E.C. 81 Mg Tablet) [facility] Atorvastatin Calcium (Atorvastatin Calcium 80 Mg Tablet) 80 mg PO QHS [facility] Baclofen (Baclofen 10 Mg Tablet) 10 mg PO QHS [facility] Calcium Acetate (Calcium Acetate 667 Mg Capsule) [facility] Cholecalciferol (Cholecalciferol (Vit D3) 1,000 Unit (25mcg)) 2,000 unit PO DAILY [facility] Clopidogrel Bisulfate (Clopidogrel Bisulfate 75 Mg Tablet) 75 mg PO DAILY [facility] Dextrose (Dextrose 50%-Water 25 Gm/50 Ml Disp.Syrin) 0 gm IV X1 PRN; Protocol PRN Reason: Hypoglycemia Enoxaparin Sodium (Enoxaparin 100 Mg/Ml Syringe) 90 mg SC Q12@0600,1800 [facility] Last Admin: 03/16/20 06:16 Dose: 90 mg Documented by: Folic Acid (Folic Acid 1 Mg Tablet) [facility] Glucagon (Glucagon 1 Mg/Ml Syringe) 1 mg IM .X1 PRN PRN Reason: Hypoglycemia Hydralazine HCl (Hydralazine 20 Mg/Ml Vial) 10 mg IV Q6H PRN PRN PRN Reason: for SBP>160 Sodium Chloride () 250 mls @ 15 mls/hr IV .[id number] PRN PRN Reason: Saline Flush Sodium Chloride () 250 mls @ 15 mls/hr IV .[id number] PRN PRN Reason: Additional IVPB Infusion Vancomycin IV Pharmacy to Dose (1 ea/ Sodium Chloride) 500 mls @ 250 mls/hr IV PRN PRN; Protocol PRN Reason: Rx to Dose Aztreonam 2 gm/ Sodium (Chloride) 100 mls @ 150 mls/hr IV Q8 [facility] Last Admin: 03/16/20 06:14 Dose: 150 mls/hr Documented by: Sodium Chloride () 1,000 mls @ 75 mls/hr IV .[id number] [facility] Stop: 03/16/20 13:44 Last Admin: 03/16/20 00:30 Dose: 125 mls/hr Documented by: Vancomycin HCl 1,250 mg/ (Sodium Chloride) 275 mls @ 167 mls/hr IV Q24H [facility] Insulin Glargine (Insulin Glargine 100 Units/Ml Pen) 100 units SC QHS [facility] Insulin Human Lispro (Insulin Lispro 100 Unit/Ml Insuln.Pen) 45 unit SC TIDAC [facility] Last Admin: 03/16/20 06:22 Dose: 45 u Documented by: Insulin Human Lispro (Insulin Lispro 100 Unit/Ml Insuln.Pen) 0 unit SC ACHS [facility]; Protocol Last Admin: 03/16/20 06:23 Dose: 2 u Documented by: Isosorbide Dinitrate (Isosorbide Dn 30 Mg Tablet) 30 mg PO BID [facility] Metoclopramide HCl (Metoclopramide 5 Mg Tablet) 5 mg PO DAILY PRN PRN PRN Reason: NAUSEA Metoprolol Tartrate (Metoprolol Tartrate 25 Mg Tablet) 75 mg PO BID [facility] Last Admin: 03/16/20 06:35 Dose: 75 mg Documented by: Non-Formulary Medication (Buprenorphine) 1 patch TD SA [facility] Ondansetron HCl (Ondansetron 4 Mg/2 Ml Vial) 4 mg IV Q8H PRN PRN PRN Reason: NAUSEA/VOMITING Pantoprazole Sodium (Pantoprazole Sodium 40 Mg Tablet) 40 mg PO DAILY [facility] Pregabalin (Pregabalin 75 Mg Capsule) 75 mg PO BID [facility] Sodium Chloride (0.9% Saline Lock 10 Ml Syringe) 10 - 40 ml IV UD PRN PRN Reason: SALINE FLUSH Trazodone HCl (Trazodone 50 Mg Tablet) 50 mg PO QHS [facility] Venlafaxine HCl (Venlafaxine Xr 150 Mg Capsule) 150 mg PO DAILY [facility] Medical Necessity - Tobacco Use Smoking Status: Former smoker Assessment/Plan This is a 59 years old female patient presented to the emergency room because of worsening shortness of breath, chest tightness, fever and cough, was discharged from the hospital on February 19, 2020 after admission for COVID-19 pneumonia and was admitted for possible bacterial pneumonia. #1 probable healthcare associated pneumonia: She is on aztreonam and vancomycin. Chest x-ray reviewed, no significant change from x-ray on February 16, 2020 when she was diagnosed with COVID-19 pneumonia. CTA chest done today and showed no PE or dissection, revealed bilateral infiltrate. She is still having spikes of fever, no leukocytosis. Lactic acid was elevated but improved with IV fluids and then started to come back again and it is probably because of hypoxia. COVID-19 antigen was negative this admission. Respiratory panel for viruses were negative. Blood and urine cultures are pending. Plan to continue same treatment. #2 COPD exacerbation: I think this is the more likely diagnosis. Patient has been having cough, increasing shortness of breath and wheezing. She was discharged on oxygen on February 19, 2020 after admission for COVID-19, at 2 L. Currently, she is on 2 L. Plan: DuoNeb every 4 hours, albuterol as needed, incentive spirometer, chest physiotherapy, IV antibiotics as above. #3 elevated D-dimer: CTA chest done and showed no PE or dissection. Other findings reviewed. #3 stage III chronic kidney disease: Baseline creatinine has been around 1.2 to 1.6 mg/dL, today's creatinine is 1.36, stable at baseline. #5 type 2 diabetes mellitus: Blood sugar has been in the range of 200s. She is on Humalog 3 times daily and Lantus nightly as well as sliding scale. #6 CAD status post CABG and stents: Stable, continue aspirin, statins, Plavix, nitrate and metoprolol. #7 hypertension: Blood pressure stable, continue metoprolol, isosorbide mononitrate. #8 chronic anemia: Baseline hemoglobin is been around 11 to 12 g/dL, today's hemoglobin is 9.7. No active bleeding. Plan to monitor, no indication for transfusion. #9 DVT prophylaxis: Subcu Lovenox. This note was generated with [employer] dictation software. It may contain incorrect words, spelling, and punctuation that were not noted in checking the note before signing. Inpatient E&M: 46282 Subs Hosp L2
--- NOTE | 2020-03-16 08:30 | CT_ITS ---
STUDY: CTA CHEST REASON FOR EXAM: Female, 59 years old. ELEVATED D-DIMER WITH SOB RADIATION DOSAGE (If Supplied By Facility): CTDIvol = ( 28.01 ) mGy, DLP = ( 517.41 ) mGycm TECHNIQUE: The examination was performed with the intravenous administration of IV 100mL Isovue-370. Post-processing of the angiographic images was performed, with multiplanar reformation and 3D reconstruction. Individualized dose optimization techniques were used for this CT. COMPARISON: 07/28/2019 FINDINGS: Status post median sternotomy. Normal enhancement of the main pulmonary artery and right and left pulmonary arteries. Normal enhancement of the bilateral peripheral pulmonary arteries. There is no demonstrated pulmonary embolism. Normal thoracic aorta and visualized great vessels. There is no demonstrated aortic dissection. Normal heart and pericardium. Normal mediastinum. Normal hilar regions. Normal visualized trachea and bronchi. The lungs are well expanded. Bilateral peripheral patchy groundglass opacities consistent with subsegmental atelectasis or pneumonitis. Normal pleura. Normal chest wall structures. Normal osseous structures. Normal visualized upper abdomen. CT/CTA Chest W/WO Contrast IMPRESSION: 1. No CT evidence of pulmonary embolism. 2. Bilateral subsegmental atelectasis or pneumonitis. Commonly reported imaging features of Covid 19 pneumonia are present. Other processes such as influenza pneumonia and organizing pneumonia, as can be seen with drug toxicity and connective tissue disease, can cause a similar imaging pattern. Electronically Signed: Houston Ann MD at 9:24 EST Tel , Service support ,
[2020-03-16 09:12] LABS: Lactic Acid 2.5 mmol/L (0.4-1.9)
[2020-03-16] MEDS: 0.9% Normal Saline 1,000 ML 75 ML IV (09:24)
[2020-03-16] MEDS: Folic Acid 1 MG Tablet PO (09:25)
[2020-03-16] MEDS: Aspirin E.C. 81 MG Tablet PO (09:25)
[2020-03-16] MEDS: Isosorbide DN 30 MG Tablet PO ×2 (09:26→21:11)
[2020-03-16] MEDS: Calcium Acetate 667 MG Capsule PO ×2 (09:26→16:55)
[2020-03-16] MEDS: Venlafaxine XR 150 MG Capsule PO (09:26)
[2020-03-16] MEDS: Clopidogrel Bisulfate 75 MG Tablet PO (09:27)
[2020-03-16] MEDS: Pantoprazole Sodium 40 MG Tablet PO (09:27)
[2020-03-16] MEDS: Pregabalin 75 MG Capsule PO ×2 (09:32→21:22)
[2020-03-16] MEDS: Acetylcysteine (Mucomyst Oral) 20% SOLN 1200 MG PO ×2 (09:32→21:22)
[2020-03-16] MEDS: Ipratropium/Albuterol Sulfate 3 ML AMPUL.NEB INHALATION ×3 (10:13→20:36)
[2020-03-16 11:11] LABS: Bedside Glucose 260 mg/dL (70-110)
--- NOTE | 2020-03-16 11:36 | CASEMGMT ---
LW/POA forms scanned into summary tab of echart. MOODY Gracia
--- NOTE | 2020-03-16 12:29 | CM.UR ---
RN CM assessment: Face to Face with patient for initial transition planning/care coordination assessment. RN CM introduced self and role at [facility], pt voices understanding and consents to assessment at this time. Pt is sitting up in bed in no distress. Pt is A/Ox4 at this time, drowsy and answers all questions appropriately at this time. Care providers, pharmacy, and demographics verified at this time. Presentation: Shortness of breath Admitting dx: Covid pneumonia Specialists: Dr. Menon (cardio), Dr. Baca (Pulm), Dr. Duque (Gastro) Dr. Wright (Pain), Dr. Muhammad (nephro) Preferred Pharmacy: [facility] Insurance: KENIA Travis Prescription Benefit: KENIA Living Will/HPOA: Avail in scanned documents. HPOA is Azucena Friedman, Significant Other. LNOK: Azucena Friedman, Significant other. Living Arrangements: Patient lives alone in a first floor apartment with no steps to enter the home. States she is independent at home. Transportation: Pt states normally drives self but lately has been needing Azucena to transport her. Denies transportation concerns. DME: Cane, walker, grab bars, bipap and oxygen. [employer] supplies O2. SNF: none HHC: none Pt states no concerns with going home at time of discharge. CM will remain available for any further discharge planning/needs. Advised pt to ask for CM if any further questions/concerns/needs arise, voices understanding. Pt Goal: Home Plan: Home Lisa Narvaez RN, CCM.
[2020-03-16] MEDS: Acyclovir 200 MG Capsule 400 MG PO (14:18)
[2020-03-16 17:01] LABS: Bedside Glucose 248 mg/dL (70-110)
[2020-03-16] MEDS: traZODone 50 MG Tablet PO (21:09)
[2020-03-16] MEDS: Baclofen 10 MG Tablet PO (21:13)
[2020-03-16] MEDS: Atorvastatin Calcium 80 MG Tablet PO (21:13)
[2020-03-16 21:36] LABS: Bedside Glucose 321 mg/dL (70-110)
[2020-03-16] MEDS: Acetaminophen 325 MG Tablet 650 MG PO (22:52)
[2020-03-17] VITALS (15 sets, daily range): BP systolic 123–158; BP diastolic 54–66; PULSE 79–108; RESP 16–20; TEMP 36.9–37.5; O2SAT 92–94
[2020-03-17] MEDS: Ipratropium/Albuterol Sulfate 3 ML AMPUL.NEB INHALATION ×5 (00:25→19:37)
[2020-03-17 06:56] LABS: Bedside Glucose 168 mg/dL (70-110)
--- NOTE | 2020-03-17 08:08 | PCM.PROGNOTE ---
Subjective: Chief complaint: Follow-up after admission for probable healthcare associated pneumonia, suspected COPD exacerbation recent COVID-19 pneumonia and elevated D-dimer. Patient seen and examined. No acute events overnight. Today, she is feeling better, less short of breath and less wheezing. Since yesterday morning, highest temperature was 99.8 Fahrenheit, blood pressure and heart rate are stable, pulse ox is 92% on 2.5 L. - Physical Exam Vitals/I&O's: Vital Signs Temp Pulse Resp BP Pulse Ox 98.5 F 88 18 144/65 H 92 03/17/20 01:44 03/17/20 05:00 03/17/20 01:44 03/17/20 01:44 03/17/20 01:44 Oxygen Flow Rate (L/min) 2.5 Oxygen Delivery Method Nasal Cannula Weight: 200 lb 11.2 oz Body Mass Index (BMI) 31.2 Finger Stick Blood Glucose 463 Intake and Output for Last 24 Hours 03/15/20 03/16/20 03/17/20 23:59 23:59 23:59 Intake Total 1100 / 1100 3075 / 3075 375 / 375 Balance 1100 / 1100 3075 / 3075 375 / 375 General: Alert, Oriented x3, Cooperative, No apparent distress HEENT: Atraumatic, PERRLA, EOMI, Normocephalic Oral: Moist Mucosa, No Gingival or Mucosal Lesions/ Ulcerations Neck: Supple, No JVD, Negative Carotid Bruits, Trachea Midline, Thyroid Normal Size and Texture Lungs: Clear to auscultation, No rhonchi, No wheeze, No rales, Diminished, - - Decreased breath sounds bilateral, otherwise clear. Cardiovascular: Regular rate, Regular Rhythm, Normal S1, Normal S2, PMI Normal Abdomen: Bowel Sounds Present, Soft, Non Tender, Non-Distended, No Hepato-splenomegaly, Obese Extremities: No clubbing, No cyanosis, No edema Skin: No rashes, No breakdown Lymphatic: No Cervical, Supraclavicular, or Inguinal Adenopathy Neurological: Cranial nerves II-XII grossly intact, Neuro grossly intact Psych/Mental Status: Normal Affect, Appropriate, Alert and oriented to time, place, person, mood and affect Microbiology Past 72 Hours 03/15/20 21:15 Urine, Clean Catch Urine Culture - Final Mixed Gram Positive Organisms 03/16/20 00:40 Mucosa - Nasopharyngeal Respiratory Panel (PCR) - Final 03/15/20 19:40 Mucosa - Nose SARS-CoV-2 Antigen (Rapid) - Final Laboratory Results 03/16/20 08:11: Lactic Acid 2.5 H* 03/16/20 10:56: POC Glucose 260 H 03/16/20 16:51: POC Glucose 248 H 03/16/20 21:03: POC Glucose 321 H 03/17/20 06:50: POC Glucose 168 H Current Medications Acetaminophen (Acetaminophen 325 Mg Tablet) 650 mg PO Q6H PRN PRN PRN Reason: Pain Score 1-10/Temp > 100.7 F Last Admin: 03/16/20 22:52 Dose: 650 mg Documented by: Acetylcysteine (Acetylcysteine (Mucomyst Oral) 20% Soln) 1,200 mg PO BID [facility] Stop: 03/18/20 22:01 Last Admin: 03/16/20 21:22 Dose: 1,200 mg Documented by: Acyclovir (Acyclovir 200 Mg Capsule) 400 mg PO TID [facility] Last Admin: 03/17/20 05:12 Dose: Not Given Documented by: Albuterol Sulfate (Albuterol 2.5 Mg/3 Ml Vial.Neb.) 2.5 mg INHALATION Q2H PRN PRN PRN Reason: SOB/Wheezing Albuterol/Ipratropium (Ipratropium/Albuterol Sulfate 3 Ml Ampul.Neb) 3 ml INHALATION Q4HWA.RT [facility] Last Admin: 03/17/20 07:16 Dose: 3 ml Documented by: Aspirin (Aspirin E.C. 81 Mg Tablet) [facility] Last Admin: 03/16/20 09:25 Dose: 81 mg Documented by: Atorvastatin Calcium (Atorvastatin Calcium 80 Mg Tablet) 80 mg PO QHS [facility] Last Admin: 03/16/20 21:13 Dose: 80 mg Documented by: Baclofen ([facility] 10 Mg Tablet) [facility] Last Admin: 03/16/20 21:13 Dose: 10 mg Documented by: Calcium Acetate (Calcium Acetate 667 Mg Capsule) [facility] Last Admin: 03/16/20 16:55 Dose: 667 mg Documented by: Cholecalciferol (Cholecalciferol (Vit D3) 1,000 Unit (25mcg)) 2,000 unit PO DAILY [facility] Last Admin: 03/16/20 09:28 Dose: 2,000 unit Documented by: Clopidogrel Bisulfate (Clopidogrel Bisulfate 75 Mg Tablet) 75 mg PO DAILY [facility] Last Admin: 03/16/20 09:27 Dose: 75 mg Documented by: Dextrose (Dextrose 50%-Water 25 Gm/50 Ml Disp.Syrin) 0 gm IV X1 PRN; Protocol PRN Reason: Hypoglycemia Enoxaparin Sodium (Enoxaparin 40 Mg/0.4 Ml Syringe) 40 mg SC DAILY [facility] Folic Acid (Folic Acid 1 Mg Tablet) [facility] Last Admin: 03/16/20 09:25 Dose: 1 mg Documented by: Glucagon (Glucagon 1 Mg/Ml Syringe) 1 mg IM .X1 PRN PRN Reason: Hypoglycemia Hydralazine HCl (Hydralazine 20 Mg/Ml Vial) 10 mg IV Q6H PRN PRN PRN Reason: for SBP>160 Sodium Chloride () 250 mls @ 15 mls/hr IV .[id number] PRN PRN Reason: Saline Flush Sodium Chloride () 250 mls @ 15 mls/hr IV .[id number] PRN PRN Reason: Additional IVPB Infusion Vancomycin IV Pharmacy to Dose (1 ea/ Sodium Chloride) 500 mls @ 250 mls/hr IV PRN PRN; Protocol PRN Reason: Rx to Dose Aztreonam 2 gm/ Sodium (Chloride) 100 mls @ 150 mls/hr IV Q8 [facility] Last Infusion: 03/17/20 07:32 Dose: Infused Documented by: Vancomycin HCl 1,250 mg/ (Sodium Chloride) 275 mls @ 167 mls/hr IV Q24H [facility] Last Infusion: 03/17/20 00:40 Dose: Infused Documented by: Insulin Glargine (Insulin Glargine 100 Units/Ml Pen) 100 units SC QHS [facility] Last Admin: 03/16/20 21:11 Dose: 100 u Documented by: Insulin Human Lispro (Insulin Lispro 100 Unit/Ml Insuln.Pen) 45 unit SC TIDAC [facility] Last Admin: 03/16/20 16:52 Dose: 45 u Documented by: Insulin Human Lispro (Insulin Lispro 100 Unit/Ml Insuln.Pen) 0 unit SC ACHS [facility]; Protocol Last Admin: 03/17/20 06:50 Dose: Not Given Documented by: Isosorbide Dinitrate (Isosorbide Dn 30 Mg Tablet) 30 mg PO BID [facility] Last Admin: 03/16/20 21:11 Dose: 30 mg Documented by: Metoclopramide HCl (Metoclopramide 5 Mg Tablet) 5 mg PO DAILY PRN PRN PRN Reason: NAUSEA Metoprolol Tartrate (Metoprolol Tartrate 25 Mg Tablet) 75 mg PO BID [facility] Last Admin: 03/16/20 21:13 Dose: 75 mg Documented by: Non-Formulary Medication (Buprenorphine) 1 patch [facility] Ondansetron HCl (Ondansetron 4 Mg/2 Ml Vial) 4 mg IV Q8H PRN PRN PRN Reason: NAUSEA/VOMITING Pantoprazole Sodium (Pantoprazole Sodium 40 Mg Tablet) 40 mg PO DAILY [facility] Last Admin: 03/16/20 09:27 Dose: 40 mg Documented by: Pregabalin (Pregabalin 75 Mg Capsule) 75 mg PO BID [facility] Last Admin: 03/16/20 21:22 Dose: 75 mg Documented by: Sodium Chloride (0.9% Saline Lock 10 Ml Syringe) 10 - 40 ml IV UD PRN PRN Reason: SALINE FLUSH Trazodone HCl (Trazodone 50 Mg Tablet) 50 mg PO QHS [facility] Last Admin: 03/16/20 21:09 Dose: 50 mg Documented by: Venlafaxine HCl (Venlafaxine Xr 150 Mg Capsule) 150 mg PO DAILY [facility] Last Admin: 03/16/20 09:26 Dose: 150 mg Documented by: Medical Necessity - Tobacco Use Smoking Status: Former smoker Assessment/Plan This is a 59 years old female patient presented to the emergency room because of worsening shortness of breath, chest tightness, fever and cough, was discharged from the hospital on February 19, 2020 after admission for COVID-19 pneumonia and was admitted for possible bacterial pneumonia. #1 probable healthcare associated pneumonia: Remained on aztreonam and vancomycin. Fever started is trending down, no leukocytosis. chest x-ray reviewed, no significant change from x-ray on February 16, 2020 when she was diagnosed with COVID-19 pneumonia. CTA chest done and showed no PE or dissection, revealed bilateral infiltrate. COVID-19 antigen was negative this admission. Respiratory panel for viruses were negative. Urine culture revealed mixed growth. Blood cultures pending. Plan to continue same treatment, wean off oxygen as tolerated, repeat CBC and BMP tomorrow morning, PT OT evaluation and treatment. #2 COPD exacerbation: She is on DuoNeb every 4 hours and albuterol as needed. There was no indication for steroids. Today, patient is feeling better, remains on oxygen 2.5 L. She was discharged on oxygen on February 19, 2020 after admission for COVID-19, at 2 L. Plan to continue same treatment. #3 elevated D-dimer: CTA chest done and showed no PE or dissection. Other findings reviewed. #3 stage III chronic kidney disease: Baseline creatinine has been around 1.2 to 1.6 mg/dL, yesterday's creatinine is 1.36, stable at baseline. #5 type 2 diabetes mellitus: Blood sugar has been in the range of 200s. She is on Humalog 3 times daily and Lantus nightly as well as sliding scale. #6 CAD status post CABG and stents: Stable, continue aspirin, statins, Plavix, nitrate and metoprolol. #7 hypertension: Blood pressure stable, continue metoprolol, isosorbide mononitrate. #8 chronic anemia: Baseline hemoglobin is been around 11 to 12 g/dL, yesterday's hemoglobin is 9.7. No active bleeding. Plan to monitor, no indication for transfusion. #9 DVT prophylaxis: Subcu Lovenox. This note was generated with [employer] dictation software. It may contain incorrect words, spelling, and punctuation that were not noted in checking the note before signing. Inpatient E&M: 67041 Subs Hosp L2
[2020-03-17] MEDS: Aspirin E.C. 81 MG Tablet PO (08:50)
[2020-03-17] MEDS: Folic Acid 1 MG Tablet PO (08:50)
[2020-03-17] MEDS: Calcium Acetate 667 MG Capsule PO ×2 (08:50→17:18)
[2020-03-17] MEDS: Insulin Lispro 100 UNIT/ML INSULN.PEN 45 UNIT SC ×3 (08:50→17:18)
[2020-03-17] MEDS: Metoprolol Tartrate 25 MG Tablet 75 MG PO ×2 (10:55→21:35)
[2020-03-17] MEDS: Pantoprazole Sodium 40 MG Tablet PO (10:55)
[2020-03-17] MEDS: Venlafaxine XR 150 MG Capsule PO (10:55)
[2020-03-17] MEDS: Clopidogrel Bisulfate 75 MG Tablet PO (10:55)
[2020-03-17] MEDS: Enoxaparin 40 MG/0.4 ML Syringe SC (10:55)
[2020-03-17] MEDS: Isosorbide DN 30 MG Tablet PO ×2 (10:55→21:35)
[2020-03-17] MEDS: Acetylcysteine (Mucomyst Oral) 20% SOLN 1200 MG PO ×2 (10:56→21:35)
[2020-03-17] MEDS: Pregabalin 75 MG Capsule PO ×2 (10:58→21:35)
[2020-03-17] MEDS: Insulin Lispro 100 UNIT/ML INSULN.PEN SC ×2 (10:59→17:18)
[2020-03-17 11:05] LABS: Bedside Glucose 286 mg/dL (70-110)
[2020-03-17] MEDS: Acetaminophen 325 MG Tablet 650 MG PO (13:32)
[2020-03-17 17:25] LABS: Bedside Glucose 252 mg/dL (70-110)
[2020-03-17 21:15] LABS: Bedside Glucose 211 mg/dL (70-110)
[2020-03-17] MEDS: Baclofen 10 MG Tablet PO (21:35)
[2020-03-17] MEDS: Atorvastatin Calcium 80 MG Tablet PO (21:35)
[2020-03-17] MEDS: traZODone 50 MG Tablet PO (21:35)
[2020-03-17 23:52] LABS: Vancomycin, Trough Level 8.1 ug/mL (5.0-15.0)
[2020-03-18] VITALS (19 sets, daily range): BP systolic 125–156; BP diastolic 57–74; PULSE 82–100; RESP 16–24; TEMP 37–37.4; O2SAT 94–97
--- NOTE | 2020-03-18 00:45 | PCM.RX.CS ---
Consult Pharmacy has been consulted to manage selected antiobiotic: Vancomycin Type of Consult: Follow-up Suspected Infection: Pneumonia Prior Doses of Antibiotics Received/Current Regimen: Medications Vancomycin HCl (Vancomycin) 1,000 mg in 200 mls @ 200 mls/hr IV Q12H KIRSTEN Vancomycin HCl 1,250 mg/ (Sodium Chloride) 275 mls @ 167 mls/hr IV Q24H KIRSTEN Stop: 03/18/20 01:57 Last Admin: 03/18/20 00:17 Dose: 167 mls/hr Labs: Sodium 138 mmol/L (136-145) 03/16/20 03:05 Potassium 4.3 mmol/L (3.5-5.1) 03/16/20 03:05 Chloride 107 mmol/L (98-107) 03/16/20 03:05 Carbon Dioxide 25.0 mmol/L (21.0-32.0) 03/16/20 03:05 Anion Gap 6 (5-15) 03/16/20 03:05 BUN 18 mg/dL (7-18) 03/16/20 03:05 Creatinine 1.36 mg/dL (0.55-1.02) H 03/16/20 03:05 Est GFR (MDRD) Af Amer 51 mL/min (>60) L 03/16/20 03:05 Est GFR (MDRD) Non-Af 42 mL/min (>60) L 03/16/20 03:05 BUN/Creatinine Ratio 13.2 RATIO (10-20) 03/16/20 03:05 Glucose 290 mg/dL (74-106) H 03/16/20 03:05 Vancomycin Trough 8.1 ug/mL (5.0-15.0) 03/17/20 22:52 Microbiology: Microbiology 03/15/20 21:15 Urine, Clean Catch Urine Culture - Final Mixed Gram Positive Organisms 03/16/20 00:40 Mucosa - Nasopharyngeal Respiratory Panel (PCR) - Final 03/15/20 19:40 Mucosa - Nose SARS-CoV-2 Antigen (Rapid) - Final Weight used for dosin kg Estimated Creatinine Clearance: 42.2 Goal Trough: 15-20 mcg/mL Pharmacy Plan for Drug Dosing: Vancomycin trough level of 8.1 was below the target range of 15-20. Will increase to 1000mg q12h and re-draw trough prior to 4th dose of this new regimen. Pharmacy Service will continue to monitor and adjust dosing as required. Follow-Up Labs: Trough Vancomycin Labs to be done on [date and time ordered]: 03/20/20 @0000
[2020-03-18] MEDS: Ipratropium/Albuterol Sulfate 3 ML AMPUL.NEB INHALATION ×6 (02:28→23:41)
[2020-03-18 06:31] LABS: Bedside Glucose 154 mg/dL (70-110)
[2020-03-18 06:47] LABS: Hematocrit 27.3 % (37-47); Hemoglobin 8.7 g/dL (12.0-15.0); Mean Corp Hgb Conc 31.9 g/dL (32-36); Mean Corpuscular Hgb 27.3 pg (27.0-32.0); Mean Corpuscular Volume 85.6 fL (81-99); Mean Platelet Vol. 11.4 fl (6.2-12.0); POSITIVE COUNT YES; POSITIVE MORPHOLOGY YES; Platelet Count 227 K/mm3 (150-450); RBC Distribution Width CV 16.4 % (11.6-14.6); Red Blood Count 3.19 M/mm3 (4.2-5.4); White Blood Count 8.2 K/mm3 (4.4-11.0)
[2020-03-18 06:53] LABS: Differential Indicated MANUAL DIFF
[2020-03-18 07:03] LABS: Anion Gap 6 (5-15); BUN 14 mg/dL (7-18); BUN/Creat Ratio 12.1 RATIO (10-20); Calcium,Total 8.5 mg/dL (8.5-10.1); Chloride 104 mmol/L (98-107); Creatinine, Serum 1.16 mg/dL (0.55-1.02); EST Glomerular Filtration Rate 50 mL/min (>60); Est Glom Filt Rate - Afr Amer 61 mL/min (>60); Estimated Creatinine Clearance 49.53 ml/min; Glucose 159 mg/dL (74-106); Potassium 4.1 mmol/L (3.5-5.1); Sodium Level 136 mmol/L (136-145)
[2020-03-18 07:12] LABS: Absolute Neutrophil Count 6.2 X10^3/uL (2.0-7.7); Lymphocyte 14 % (19-41); Metamyelocyte 4 % (0-1); Monocyte 6 % (0-10); Neutrophil-Band 4 % (0-5); Neutrophil-Segmented 72 % (47-70); Total Cells Counted 100 (MANUAL DIFF)
[2020-03-18 07:13] LABS: Platelet Estimate ADEQUATE (ADEQ); Red Cell Morphology NORM C+C NORMAL (NORM C&C)
[2020-03-18] MEDS: Insulin Lispro 100 UNIT/ML INSULN.PEN 45 UNIT SC ×3 (08:43→16:33)
[2020-03-18] MEDS: Enoxaparin 40 MG/0.4 ML Syringe SC (08:45)
[2020-03-18] MEDS: Calcium Acetate 667 MG Capsule PO ×2 (08:46→16:34)
[2020-03-18] MEDS: Aspirin E.C. 81 MG Tablet PO (08:46)
[2020-03-18] MEDS: Metoprolol Tartrate 25 MG Tablet 75 MG PO ×2 (08:46→21:05)
[2020-03-18] MEDS: Venlafaxine XR 150 MG Capsule PO (08:46)
[2020-03-18] MEDS: Folic Acid 1 MG Tablet PO (08:46)
[2020-03-18] MEDS: Clopidogrel Bisulfate 75 MG Tablet PO (08:46)
[2020-03-18] MEDS: Pantoprazole Sodium 40 MG Tablet PO (08:46)
[2020-03-18] MEDS: Isosorbide DN 30 MG Tablet PO ×2 (08:46→21:06)
[2020-03-18] MEDS: Acetylcysteine (Mucomyst Oral) 20% SOLN 1200 MG PO ×2 (08:52→21:49)
[2020-03-18] MEDS: Pregabalin 75 MG Capsule PO ×2 (08:52→21:05)
[2020-03-18] MEDS: Insulin Lispro 100 UNIT/ML INSULN.PEN SC ×3 (11:49→21:03)
[2020-03-18] MEDS: Vancomycin IV 1,000 MG/200 ML BAG 200 MG IV ×2 (11:54→23:38)
[2020-03-18 11:55] LABS: Bedside Glucose 270 mg/dL (70-110)
--- NOTE | 2020-03-18 12:57 | PCM.PN.HOSP ---
Subjective: Patient has been on home O2 at 2 L since discharge with Covid when she was admitted on February 18. Today her oxygen requirement has increased and she is now on 5 to 6 L. She states that overnight she had increased shortness of breath and felt like she could not get a deep breath. She did have a CT done on admission which showed no evidence of pulmonary embolism but did have changes consistent with recent Covid infection. She states that she has been persistently short of breath today more so than she had been and is not sure why she is feeling worse. She is currently on is the aztreonam and vancomycin for suspected HCAP. Vitals/I&O's: Vital Signs Temp Pulse Resp BP Pulse Ox 99.1 F 84 16 130/64 H 94 03/18/20 08:39 03/18/20 11:18 03/18/20 11:18 03/18/20 08:46 03/18/20 08:39 Oxygen Flow Rate (L/min) 6 Oxygen Delivery Method Nasal Cannula Weight: 90.9 kg Body Mass Index (BMI) 31.2 Finger Stick Blood Glucose 463 Intake and Output for Last 24 Hours 03/16/20 03/17/20 03/18/20 23:59 23:59 23:59 Intake Total 3075 / 3075 575 / 575 375 / 375 Balance 3075 / 3075 575 / 575 375 / 375 General: Alert, Oriented x3, Cooperative, No apparent distress, Well developed, Well nourished, - - Patient is sitting up in a chair next to the bed, appears comfortable HEENT: Atraumatic, PERRLA, EOMI, Normocephalic, EAC Clear Oral: Moist Mucosa, No Gingival or Mucosal Lesions/ Ulcerations, - - Short thick neck, dentures in place, Mallampati 3 Neck: Supple, No JVD, Negative Carotid Bruits, Trachea Midline, Thyroid Normal Size and Texture Lungs: Clear to auscultation, No rhonchi, No wheeze, Diminished Cardiovascular: Regular rate, Regular Rhythm, Normal S1, Normal S2, No murmurs, No rub noted, No Gallop Abdomen: Bowel Sounds Present, Soft, Non Tender, Non-Distended, Obese Extremities: No clubbing, No cyanosis, No edema, Capillary Refill Less than 3 Seconds, Peripheral Pulses Normal Skin: No rashes, No breakdown Musculoskeletal: No Tenderness to Palpation of Joints or Extremities, No Muscle Wasting Lymphatic: No Cervical, Supraclavicular, or Inguinal Adenopathy Neurological: Cranial nerves II-XII grossly intact, Neuro grossly intact, Muscle tone normal, Sensory exam intact to light touch and pain, Coordination normal Microbiology Past 72 Hours 03/15/20 19:40 Blood Culture (Wb) - Right Hand Blood Culture - Preliminary No growth in 48 hours. 03/15/20 19:20 Blood Culture (Wb) - Anticubital Left Blood Culture - Preliminary No growth in 48 hours. 03/15/20 21:15 Urine, Clean Catch Urine Culture - Final Mixed Gram Positive Organisms 03/16/20 00:40 Mucosa - Nasopharyngeal Respiratory Panel (PCR) - Final 03/15/20 19:40 Mucosa - Nose SARS-CoV-2 Antigen (Rapid) - Final Laboratory Results 03/17/20 17:16: POC Glucose 252 H 03/17/20 21:10: POC Glucose 211 H 03/17/20 22:52: Vancomycin Trough 8.1 03/18/20 06:22: POC Glucose 154 H 03/18/20 06:30: WBC 8.2, RBC 3.19 L, Hgb 8.7 L, Hct 27.3 L, MCV 85.6, MCH 27.3, MCHC 31.9 L, RDW Std Deviation 50.0 H, RDW Coeff of Jan 16.4 H, Plt Count 227, MPV 11.4, Neut % (Auto) Not Reportable, Absolute Neuts (auto) 6.2, Absolute Lymphs (auto) 1.10, Total Counted 100, Neutrophils % (Manual) 72 H, Band Neutrophils % 4, Lymphocytes % (Manual) 14 L, Monocytes % (Manual) 6, Metamyelocytes % 4 H, Diff Path Review July foll, Platelet Estimate ADEQUATE, RBC Morphology NORM C+C 03/18/20 06:30: Sodium 136, Potassium 4.1, Chloride 104, Carbon Dioxide 26.0, Anion Gap 6, BUN 14, Creatinine 1.16 H, Estim Creat Clear Calc 49.53, Est GFR (MDRD) Af Amer 61, Est GFR (MDRD) Non-Af 50 L, BUN/Creatinine Ratio 12.1, Glucose 159 H, Calcium 8.5 03/18/20 11:48: POC Glucose 270 H Current Medications Acetaminophen (Acetaminophen 325 Mg Tablet) 650 mg PO Q6H PRN PRN PRN Reason: Pain Score 1-10/Temp > 100.7 F Last Admin: 03/17/20 13:32 Dose: 650 mg Documented by: Acetylcysteine (Acetylcysteine (Mucomyst Oral) 20% Soln) 1,200 mg PO BID [facility] Stop: 03/18/20 22:01 Last Admin: 03/18/20 08:52 Dose: 1,200 mg Documented by: Acyclovir (Acyclovir 200 Mg Capsule) 400 mg PO TID [facility] Last Admin: 03/18/20 06:40 Dose: Not Given Documented by: Albuterol Sulfate (Albuterol 2.5 Mg/3 Ml Vial.Neb.) 2.5 mg INHALATION Q2H PRN PRN PRN Reason: SOB/Wheezing Albuterol/Ipratropium (Ipratropium/Albuterol Sulfate 3 Ml Ampul.Neb) 3 ml INHALATION Q4HWA.RT [facility] Last Admin: 03/18/20 11:18 Dose: 3 ml Documented by: Aspirin (Aspirin E.C. 81 Mg Tablet) [facility] Last Admin: 03/18/20 08:46 Dose: 81 mg Documented by: Atorvastatin Calcium (Atorvastatin Calcium 80 Mg Tablet) 80 mg PO QHS [facility] Last Admin: 03/17/20 21:35 Dose: 80 mg Documented by: Baclofen (Baclofen 10 Mg Tablet) 10 mg PO QHS [facility] Last Admin: 03/17/20 21:35 Dose: 10 mg Documented by: Calcium Acetate (Calcium Acetate 667 Mg Capsule) [facility] Last Admin: 03/18/20 08:46 Dose: 667 mg Documented by: Cholecalciferol (Cholecalciferol (Vit D3) 1,000 Unit (25mcg)) 2,000 unit PO DAILY [facility] Last Admin: 03/18/20 08:46 Dose: 2,000 unit Documented by: Clopidogrel Bisulfate (Clopidogrel Bisulfate 75 Mg Tablet) 75 mg PO DAILY [facility] Last Admin: 03/18/20 08:46 Dose: 75 mg Documented by: Dextrose (Dextrose 50%-Water 25 Gm/50 Ml Disp.Syrin) 0 gm IV X1 PRN; Protocol PRN Reason: Hypoglycemia Enoxaparin Sodium (Enoxaparin 40 Mg/0.4 Ml Syringe) 40 mg SC DAILY [facility] Last Admin: 03/18/20 08:45 Dose: 40 mg Documented by: Folic Acid (Folic Acid 1 Mg Tablet) 1 mg PO DAILYCM [facility] Last Admin: 03/18/20 08:46 Dose: 1 mg Documented by: Glucagon (Glucagon 1 Mg/Ml Syringe) 1 mg IM .X1 PRN PRN Reason: Hypoglycemia Hydralazine HCl (Hydralazine 20 Mg/Ml Vial) 10 mg IV Q6H PRN PRN PRN Reason: for SBP>160 Sodium Chloride () 250 mls @ 15 mls/hr IV .[id number] PRN PRN Reason: Saline Flush Sodium Chloride () 250 mls @ 15 mls/hr IV .[id number] PRN PRN Reason: Additional IVPB Infusion Vancomycin IV Pharmacy to Dose (1 ea/ Sodium Chloride) 500 mls @ 250 mls/hr IV PRN PRN; Protocol PRN Reason: Rx to Dose Aztreonam 2 gm/ Sodium (Chloride) 100 mls @ 150 mls/hr IV Q8 [facility] Last Infusion: 03/18/20 08:00 Dose: Infused Documented by: Vancomycin HCl (Vancomycin) 1,000 mg in 200 mls @ 200 mls/hr IV Q12H [facility] Last Admin: 03/18/20 11:54 Dose: 200 mls/hr Documented by: Insulin Glargine (Insulin Glargine 100 Units/Ml Pen) 100 units SC QHS [facility] Last Admin: 03/17/20 21:36 Dose: 100 u Documented by: Insulin Human Lispro (Insulin Lispro 100 Unit/Ml Insuln.Pen) 45 unit SC TIDAC [facility] Last Admin: 03/18/20 11:48 Dose: 45 u Documented by: Insulin Human Lispro (Insulin Lispro 100 Unit/Ml Insuln.Pen) 0 unit SC ACHS [facility]; Protocol Last Admin: 03/18/20 11:49 Dose: 2 u Documented by: Isosorbide Dinitrate (Isosorbide Dn 30 Mg Tablet) 30 mg PO BID [facility] Last Admin: 03/18/20 08:46 Dose: 30 mg Documented by: Metoclopramide HCl (Metoclopramide 5 Mg Tablet) 5 mg PO DAILY PRN PRN PRN Reason: NAUSEA Metoprolol Tartrate (Metoprolol Tartrate 25 Mg Tablet) 75 mg PO BID [facility] Last Admin: 03/18/20 08:46 Dose: 75 mg Documented by: Non-Formulary Medication (Buprenorphine) 1 patch [facility] Ondansetron HCl (Ondansetron 4 Mg/2 Ml Vial) 4 mg IV Q8H PRN PRN PRN Reason: NAUSEA/VOMITING Pantoprazole Sodium (Pantoprazole Sodium 40 Mg Tablet) 40 mg PO DAILY [facility] Last Admin: 03/18/20 08:46 Dose: 40 mg Documented by: Pregabalin (Pregabalin 75 Mg Capsule) 75 mg PO BID [facility] Last Admin: 03/18/20 08:52 Dose: 75 mg Documented by: Sodium Chloride (0.9% Saline Lock 10 Ml Syringe) 10 - 40 ml IV UD PRN PRN Reason: SALINE FLUSH Trazodone HCl (Trazodone 50 Mg Tablet) 50 mg PO QHS [facility] Last Admin: 03/17/20 21:35 Dose: 50 mg Documented by: Venlafaxine HCl (Venlafaxine Xr 150 Mg Capsule) 150 mg PO DAILY [facility] Last Admin: 03/18/20 08:46 Dose: 150 mg Documented by: STROKE Vital Signs/Narrative: Vital Signs Pulse Resp 03/18/20 11:18 84 16 Medical Necessity - Tobacco Use Smoking Status: Former smoker Assessment/Plan Acute respiratory failure secondary to HCAP with recent COVID-19 pneumonia -CTA done on admission no PE noted, bilateral infiltrates -Blood cultures are negative/urine culture is negative -Respiratory viral panel is negative -Patient is currently on aztreonam and vancomycin empirically -Has been on 2 L at baseline -Currently is on 6 L with saturations in the mid to upper 90s -With increased will we repeat chest x-ray -Check BNP -Wean supplemental O2 as able -No significant wheezing on exam but will trial prednisone 40 mg daily -Continue Mucomyst -Continue pulmonary toilet -May need to consider pulmonary consult if unable to wean oxygen Acute anemia -Baseline counts are normal -No signs of bleeding at this time -Check Hemoccult CKD stage III -Creatinine appears at baseline at this time -Continue to monitor serum creatinine -Monitor urine output D-dimer elevation -Likely related to recent Covid infection -CTA negative DM-2 Continue Lantus -Prandial blood sugars appear elevated -We will continue sliding scale -May need mealtime log -Watch BGT CAD s/p CABG/stents -Continue aspirin, statin, Plavix, nitrates, and metoprolol -Patient has normal EF based on echo done approximately 1 year ago -Suspect possible heart failure with preserved ejection fraction based on her ANKITA and noncompliance Hypertension -Continue metoprolol, isosorbide mononitrate ANKITA -Patient is noncompliant with BiPAP therapy at home -Has been wearing home O2 nocturnally Hyperlipidemia -Continue statin UC Patient does not appear to be on any chronic therapy for this Chronic pain -Continue Suboxone -Continue Lyrica -Continue baclofen Obesity -Recommend weight loss -Complicates clinical picture Depression -Continue Effexor DVT prophylaxis -Lovenox 40 mg daily Inpatient E&M: 32353 [facility] H[facility] L3
[2020-03-18 13:24] LABS: Pathologist Review Reviewed
--- NOTE | 2020-03-18 13:24 | RAD_ITS ---
HISTORY: SOB EXAM: XR Chest 1 View: COMPARISON: March 15, 2020 FINDINGS: # of images incl. paperwork: 1 Sternal wires and mediastinal clips persist Bilateral airspace disease persists Heart is not enlarged. No acute osseous pathology perceived. Pulmonary vascularity is distinct. No effusions. RAD/Chest 1 View (Portable) IMPRESSION: Airspace disease bilaterally. Disease is similar in severity to previous study. Findings could easily represent pneumonia. at 0022 Reported and signed by: Poncho Davis MD Electronically Signed: Poncho Davis MD at 0:21 EST Tel , Service support ,
[2020-03-18 13:38] LABS: BNP,B-Type NATRIURETIC PEPTIDE 87.6 pg/mL (0-100)
[2020-03-18 13:39] LABS: Pathologist Review Reviewed
[2020-03-18 13:40] LABS: Pathologist Review Reviewed
[2020-03-18] MEDS: predniSONE 20 MG Tablet 40 MG PO (16:40)
[2020-03-18 16:41] LABS: Bedside Glucose 243 mg/dL (70-110)
[2020-03-18] MEDS: 0.9% Saline Lock 10 ML Syringe IV (21:02)
[2020-03-18] MEDS: Baclofen 10 MG Tablet PO (21:05)
[2020-03-18] MEDS: Acyclovir 200 MG Capsule 400 MG PO (21:06)
[2020-03-18] MEDS: traZODone 50 MG Tablet PO (21:06)
[2020-03-18] MEDS: Atorvastatin Calcium 80 MG Tablet PO (21:06)
[2020-03-18 21:51] LABS: Bedside Glucose 278 mg/dL (70-110)
[2020-03-19] VITALS (14 sets, daily range): BP systolic 122–174; BP diastolic 53–70; PULSE 69–97; RESP 16–24; TEMP 36.3–36.8; O2SAT 92–96
--- NOTE | 2020-03-19 00:06 | PCS.PANDOC ---
PANDEMIC DOCUMENTATION INITIATED: Date: 03/15/20 Time: 22:50
[2020-03-19] MEDS: Ipratropium/Albuterol Sulfate 3 ML AMPUL.NEB INHALATION ×3 (06:56→19:04)
[2020-03-19 07:36] LABS: Hemoglobin 8.6 g/dL (12.0-15.0); Mean Corp Hgb Conc 31.9 g/dL (32-36); Mean Corpuscular Hgb 27.3 pg (27.0-32.0); Mean Corpuscular Volume 85.7 fL (81-99); Mean Platelet Vol. 11.9 fl (6.2-12.0); POSITIVE COUNT YES; POSITIVE MORPHOLOGY YES; Platelet Count 256 K/mm3 (150-450); RBC Distribution Width CV 16.5 % (11.6-14.6); RBC Distribution Width SD 50.1 fl (35.1-43.9); Red Blood Count 3.15 M/mm3 (4.2-5.4); White Blood Count 9.2 K/mm3 (4.4-11.0)
[2020-03-19 07:40] LABS: Differential Indicated MANUAL DIFF
[2020-03-19 07:49] LABS: ALB/GLOB Ratio 0.4 RATIO (0.9-2.4); AST(SGOT) 24 U/L (15-37); Alanine Aminotransfer ALT/SGPT 15 U/L (13-56); Albumin, Serum 1.8 g/dL (3.2-5.0); Alkaline Phosphatase 146 U/L (45-117); Anion Gap 8 (5-15); BUN 30 mg/dL (7-18); BUN/Creat Ratio 18.9 RATIO (10-20); Calcium,Total 8.4 mg/dL (8.5-10.1); Chloride 101 mmol/L (98-107); Creatinine, Serum 1.59 mg/dL (0.55-1.02); EST Glomerular Filtration Rate 35 mL/min (>60); Est Glom Filt Rate - Afr Amer 42 mL/min (>60); Estimated Creatinine Clearance 36.13 ml/min; Globulin 5.1 g/dL (2.2-4.2); Glucose 514 mg/dL (74-106); Potassium 5.5 mmol/L (3.5-5.1); Protein, Total 6.9 g/dL (6.4-8.2); Sodium Level 131 mmol/L (136-145)
[2020-03-19] MEDS: Insulin Lispro 100 UNIT/ML INSULN.PEN 45 UNIT SC ×2 (07:51→11:42)
[2020-03-19 08:01] LABS: Bedside Glucose > 500 mg/dL (70-110)
--- NOTE | 2020-03-19 08:11 | NURSING ---
LATE ENTRY - 0743 - ACCUCHECK 529, GLUCOSE 514 BY LAB DRAW. PT GIVEN SCHEDULED 45UNITS HUMALOG & CORTEXT REGARDING SAME TO DR GRIMES TO SEE IF/HOW MUCH ADDITIONAL SHE WANTS TO GIVE.
[2020-03-19] MEDS: Acetaminophen 325 MG Tablet 650 MG PO (08:15)
[2020-03-19] MEDS: Insulin Lispro 100 UNIT/ML INSULN.PEN 20 UNIT SC (08:30)
[2020-03-19 08:49] LABS: Anisocytosis 1+; Eosinophil 1 % (0-5); Lymphocyte 25 % (19-41); Metamyelocyte 4 % (0-1); Neutrophil-Band 1 % (0-5); Neutrophil-Segmented 69 % (47-70); Nucleated Red Bld Cells,Manual 1 % (0-5); Platelet Estimate ADEQUATE (ADEQ); Total Cells Counted 100 (MANUAL DIFF)
[2020-03-19 08:50] LABS: Red Cell Morphology N CHROM NORMAL (NORM C&C)
[2020-03-19 08:51] LABS: Absolute Neutrophil Count 6.4 X10^3/uL (2.0-7.7)
[2020-03-19] MEDS: Calcium Acetate 667 MG Capsule PO ×2 (08:57→17:04)
[2020-03-19] MEDS: Folic Acid 1 MG Tablet PO (08:57)
[2020-03-19] MEDS: Aspirin E.C. 81 MG Tablet PO (08:57)
[2020-03-19] MEDS: Isosorbide DN 30 MG Tablet PO ×2 (08:58→21:07)
[2020-03-19] MEDS: Clopidogrel Bisulfate 75 MG Tablet PO (08:58)
[2020-03-19] MEDS: Enoxaparin 40 MG/0.4 ML Syringe SC (08:58)
[2020-03-19] MEDS: Venlafaxine XR 150 MG Capsule PO (08:58)
[2020-03-19] MEDS: Pantoprazole Sodium 40 MG Tablet PO (08:58)
[2020-03-19] MEDS: Pregabalin 75 MG Capsule PO ×2 (09:01→21:06)
[2020-03-19] MEDS: Metoprolol Tartrate 25 MG Tablet 75 MG PO ×2 (09:02→21:08)
[2020-03-19] MEDS: predniSONE 20 MG Tablet 40 MG PO (10:25)
[2020-03-19 10:41] LABS: Bedside Glucose 478 mg/dL (70-110)
[2020-03-19] MEDS: Vancomycin IV 1,000 MG/200 ML BAG 200 MG IV (11:38)
[2020-03-19] MEDS: 0.9% Saline Lock 10 ML Syringe IV (11:38)
[2020-03-19] MEDS: Insulin Lispro 100 UNIT/ML INSULN.PEN SC ×3 (11:43→21:12)
--- NOTE | 2020-03-19 14:09 | PN_ITS ---
Subjective: Patient states she is feeling a ton better today regarding her breathing. She states she thinks the steroids made a difference for her. She follows with Dr. Baca as an outpatient. She is asking if she can have a wheelchair to help her go out on trips with her friends after she gets discharged. I told her that is unlikely because there is likely not medical need based on her therapy notes but I would discuss with case management. Vitals/I&O's: Vital Signs Temp Pulse Resp BP Pulse Ox 97.4 F L 69 16 122/53 H 92 03/19/20 03:05 03/19/20 09:02 03/19/20 06:56 03/19/20 09:02 03/19/20 06:56 Oxygen Flow Rate (L/min) 3 Oxygen Delivery Method Nasal Cannula Weight: 91 kg Body Mass Index (BMI) 31.2 Finger Stick Blood Glucose 463 Intake and Output for Last 24 Hours 03/17/20 03/18/20 03/19/20 23:59 23:59 23:59 Intake Total 575 / 575 1215 / 1215 300 / 300 Output Total 475 / 475 Balance 575 / 575 1215 / 1215 -175 / -175 General: Alert, Oriented x3, Cooperative, No apparent distress, Well developed, Well nourished HEENT: Atraumatic, PERRLA, EOMI, Normocephalic, EAC Clear Oral: Moist Mucosa, No Gingival or Mucosal Lesions/ Ulcerations Neck: Supple, No JVD, Negative Carotid Bruits, Negative Hepatojugular Reflux, No Nodes, No Nuchal Rigidity, Trachea Midline, Thyroid Normal Size and Texture Lungs: No rhonchi, No wheeze, No rales, Diminished, - - No respiratory distress, comfortable breathing Cardiovascular: Regular rate, Regular Rhythm, Normal S1, Normal S2, No murmurs, No rub noted, No Gallop Abdomen: Bowel Sounds Present, Soft, Non Tender, Non-Distended Extremities: No clubbing, No cyanosis, No edema, Capillary Refill Less than 3 Seconds, Peripheral Pulses Normal Skin: No rashes, No breakdown, - Musculoskeletal: No Tenderness to Palpation of Joints or Extremities - Pale, No Muscle Wasting, Arthritic Changes Lymphatic: - - No cervical or submandibular lymphadenopathy noted Neurological: Cranial nerves II-XII grossly intact, Neuro grossly intact, Muscle tone normal, Sensory exam intact to light touch and pain, Coordination normal Psych/Mental Status: Normal Affect, Appropriate Microbiology Past 72 Hours 03/15/20 19:40 Blood Culture (Wb) - Right Hand Blood Culture - Preliminary No growth in 48 hours. 03/15/20 19:20 Blood Culture (Wb) - Anticubital Left Blood Culture - Preliminary No growth in 48 hours. 03/15/20 21:15 Urine, Clean Catch Urine Culture - Final Mixed Gram Positive Organisms Laboratory Results 03/18/20 16:31: POC Glucose 243 H 03/18/20 20:57: POC Glucose 278 H 03/19/20 07:20: WBC 9.2, RBC 3.15 L, Hgb 8.6 L, Hct 27.0 L, MCV 85.7, MCH 27.3, MCHC 31.9 L, RDW Std Deviation 50.1 H, RDW Coeff of Jan 16.5 H, Plt Count 256, MPV 11.9, Neut % (Auto) Not Reportable, Absolute Neuts (auto) 6.4, Absolute Lymphs (auto) 2.30, Total Counted 100, Neutrophils % (Manual) 69, Band Neutrophils % 1, Lymphocytes % (Manual) 25, Eosinophils % (Manual) 1, Metamyelocytes % 4 H, Nucleated RBCs/100 WBC 1, Diff Path Review July, Platelet Estimate ADEQUATE, RBC Morphology N CHROM, Anisocytosis 1+ 03/19/20 07:20: Sodium 131 L, Potassium 5.5 H, Chloride 101, Carbon Dioxide 22.0, Anion Gap 8, BUN 30 H, Creatinine 1.59 H, Estim Creat Clear Calc 36.13, Est GFR (MDRD) Af Amer 42 L, Est GFR (MDRD) Non-Af 35 L, BUN/Creatinine Ratio 18.9, Glucose 514 H*, Calcium 8.4 L, Total Bilirubin 0.50, AST 24, ALT 15, Alkaline Phosphatase 146 H, Total Protein 6.9, Albumin 1.8 L, Globulin 5.1 H, Albumin/Globulin Ratio 0.4 L 03/19/20 07:43: POC Glucose > 500 H* 03/19/20 10:27: POC Glucose 478 H* Current Medications Acetaminophen (Acetaminophen 325 Mg Tablet) 650 mg PO Q6H PRN PRN PRN Reason: Pain Score 1-10/Temp > 100.7 F Last Admin: 03/19/20 08:15 Dose: 650 mg Documented by: Acyclovir (Acyclovir 200 Mg Capsule) 400 mg PO TID [facility] Last Admin: 03/19/20 06:11 Dose: Not Given Documented by: Albuterol Sulfate (Albuterol 2.5 Mg/3 Ml Vial.Neb.) 2.5 mg INHALATION Q2H PRN PRN PRN Reason: SOB/Wheezing Albuterol/Ipratropium (Ipratropium/Albuterol Sulfate 3 Ml Ampul.Neb) 3 ml INHALATION Q4HWA.RT [facility] Last Admin: 03/19/20 06:56 Dose: 3 ml Documented by: Aspirin (Aspirin E.C. 81 Mg Tablet) [facility] Last Admin: 03/19/20 08:57 Dose: 81 mg Documented by: Atorvastatin Calcium (Atorvastatin Calcium 80 Mg Tablet) 80 mg PO QHS [facility] Last Admin: 03/18/20 21:06 Dose: 80 mg Documented by: Baclofen (Baclofen 10 Mg Tablet) 10 mg PO QHS [facility] Last Admin: 03/18/20 21:05 Dose: 10 mg Documented by: Calcium Acetate (Calcium Acetate 667 Mg Capsule) [facility] Last Admin: 03/19/20 08:57 Dose: 667 mg Documented by: Cholecalciferol (Cholecalciferol (Vit D3) 1,000 Unit (25mcg)) 2,000 unit PO DAILY [facility] Last Admin: 03/19/20 08:59 Dose: 2,000 unit Documented by: Clopidogrel Bisulfate (Clopidogrel Bisulfate 75 Mg Tablet) 75 mg PO DAILY [facility] Last Admin: 03/19/20 08:58 Dose: 75 mg Documented by: Dextrose (Dextrose 50%-Water 25 Gm/50 Ml Disp.Syrin) 0 gm IV X1 PRN; Protocol PRN Reason: Hypoglycemia Enoxaparin Sodium (Enoxaparin 40 Mg/0.4 Ml Syringe) 40 mg SC DAILY [facility] Last Admin: 03/19/20 08:58 Dose: 40 mg Documented by: Folic Acid (Folic Acid 1 Mg Tablet) [facility] Last Admin: 03/19/20 08:57 Dose: 1 mg Documented by: Glucagon (Glucagon 1 Mg/Ml Syringe) 1 mg IM .X1 PRN PRN Reason: Hypoglycemia Hydralazine HCl (Hydralazine 20 Mg/Ml Vial) 10 mg IV Q6H PRN PRN PRN Reason: for SBP>160 Sodium Chloride () 250 mls @ 15 mls/hr IV .[id number] PRN PRN Reason: Saline Flush Sodium Chloride () 250 mls @ 15 mls/hr IV .[id number] PRN PRN Reason: Additional IVPB Infusion Vancomycin IV Pharmacy to Dose (1 ea/ Sodium Chloride) 500 mls @ 250 mls/hr IV PRN PRN; Protocol PRN Reason: Rx to Dose Aztreonam 2 gm/ Sodium (Chloride) 100 mls @ 150 mls/hr IV Q8 [facility] Last Infusion: 03/19/20 07:00 Dose: Infused Documented by: Vancomycin HCl (Vancomycin) 1,000 mg in 200 mls @ 200 mls/hr IV Q12H [facility] Last Admin: 03/19/20 11:38 Dose: 200 mls/hr Documented by: Insulin Glargine (Insulin Glargine 100 Units/Ml Pen) 100 units SC QHS [facility] Last Admin: 03/18/20 21:02 Dose: 100 u Documented by: Insulin Human Lispro (Insulin Lispro 100 Unit/Ml Insuln.Pen) 45 unit SC TIDAC [facility] Last Admin: 03/19/20 11:42 Dose: 45 u Documented by: Insulin Human Lispro (Insulin Lispro 100 Unit/Ml Insuln.Pen) 0 unit SC ACHS [facility]; Protocol Last Admin: 03/19/20 11:43 Dose: 4 u Documented by: Isosorbide Dinitrate (Isosorbide Dn 30 Mg Tablet) 30 mg PO BID [facility] Last Admin: 03/19/20 08:58 Dose: 30 mg Documented by: Metoclopramide HCl (Metoclopramide 5 Mg Tablet) 5 mg PO DAILY PRN PRN PRN Reason: NAUSEA Metoprolol Tartrate (Metoprolol Tartrate 25 Mg Tablet) 75 mg PO BID [facility] Last Admin: 03/19/20 09:02 Dose: 75 mg Documented by: Non-Formulary Medication (Buprenorphine) 1 patch [facility] Ondansetron HCl (Ondansetron 4 Mg/2 Ml Vial) 4 mg IV Q8H PRN PRN PRN Reason: NAUSEA/VOMITING Pantoprazole Sodium (Pantoprazole Sodium 40 Mg Tablet) 40 mg PO DAILY [facility] Last Admin: 03/19/20 08:58 Dose: 40 mg Documented by: Prednisone (Prednisone 20 Mg Tablet) 40 mg PO DAILY@0800 [facility] Last Admin: 03/19/20 10:25 Dose: 40 mg Documented by: Pregabalin (Pregabalin 75 Mg Capsule) 75 mg PO BID [facility] Last Admin: 03/19/20 09:01 Dose: 75 mg Documented by: Sodium Chloride (0.9% Saline Lock 10 Ml Syringe) 10 - 40 ml IV UD PRN PRN Reason: SALINE FLUSH Last Admin: 03/19/20 11:38 Dose: 10 ml Documented by: Trazodone HCl (Trazodone 50 Mg Tablet) 50 mg PO QHS [facility] Last Admin: 03/18/20 21:06 Dose: 50 mg Documented by: Venlafaxine HCl (Venlafaxine Xr 150 Mg Capsule) 150 mg PO DAILY [facility] Last Admin: 03/19/20 08:58 Dose: 150 mg Documented by: Medical Necessity - Tobacco Use Smoking Status: Former smoker Assessment/Plan Acute respiratory failure secondary to HCAP with recent COVID-19 pneumonia -CTA done on admission no PE noted, bilateral infiltrates -Blood cultures are negative/urine culture is negative -Respiratory viral panel is negative -Patient is currently on aztreonam and vancomycin empirically -Continue current antibiotics -Check MRSA PCR if negative DC bank -Will likely discharge with oral antibiotics to complete a 7-day course -Today is day 4 of 7 -Has been on 2 L at baseline -Current oxygen dose is 3 L which was weaned overnight from 6 L oxygen saturations are 92 to 96% -Continue prednisone 40 mg a day, will complete 3 days and then begin taper as long as patient remains stable and oxygen is being weaned -Continue Mucomyst -Continue pulmonary toilet Acute anemia -Baseline counts are normal -No signs of bleeding at this time -Check a.m. CBC CKD stage III -Creatinine appears at baseline at this time -Continue to monitor serum creatinine -Monitor urine output -A.m. BMP D-dimer elevation -Likely related to recent Covid infection -CTA negative DM-2 -Blood sugar with marked elevation related to steroid initiation -Continue Lantus but increase from 100 units nightly to 60 units twice daily -Increase prandial log from 46 units to 60 units 3 times daily -Sliding scale to high-dose sliding scale from low-dose sliding scale -Continue to monitor blood sugars before meals and at bedtime CAD s/p CABG/stents -Continue aspirin, statin, Plavix, nitrates, and metoprolol -Patient has normal EF based on echo done approximately 1 year ago Hypertension -Continue metoprolol, isosorbide mononitrate ANKITA -Patient is noncompliant with BiPAP therapy at home -Has been wearing home O2 nocturnally Hyperlipidemia -Continue statin UC Patient does not appear to be on any chronic therapy for this Chronic pain -Continue Suboxone -Continue Lyrica -Continue baclofen Obesity -Recommend weight loss -Complicates clinical picture Depression -Continue Effexor DVT prophylaxis -Lovenox 40 mg daily Inpatient E&M: [id number] [facility] L3
[2020-03-19 14:51] LABS: Bedside Glucose 446 mg/dL (70-110)
[2020-03-19] MEDS: oxyCODONE 5 MG Tablet PO (15:45)
[2020-03-19] MEDS: Insulin Lispro 100 UNIT/ML INSULN.PEN 60 UNIT SC (17:25)
[2020-03-19 17:45] LABS: Bedside Glucose 475 mg/dL (70-110)
[2020-03-19] MEDS: Acyclovir 200 MG Capsule 400 MG PO (21:06)
[2020-03-19] MEDS: Baclofen 10 MG Tablet PO (21:07)
[2020-03-19] MEDS: Atorvastatin Calcium 80 MG Tablet PO (21:07)
[2020-03-19] MEDS: traZODone 50 MG Tablet PO (21:08)
[2020-03-19 21:11] LABS: M R Staph aureus DNA By PCR Negative (Negative); Probe Check PASS; Specimen Processing Control PASS
[2020-03-19 21:45] LABS: Bedside Glucose 432 mg/dL (70-110)
[2020-03-20] VITALS (12 sets, daily range): BP systolic 136–154; BP diastolic 62–68; PULSE 61–94; RESP 16–18; TEMP 36.4–36.6; O2SAT 88–97
[2020-03-20 00:36] LABS: Vancomycin, Trough Level 22.2 ug/mL (5.0-15.0)
--- NOTE | 2020-03-20 01:00 | PCM.RX.CS ---
Consult Pharmacy has been consulted to manage selected antiobiotic: Vancomycin Type of Consult: Follow-up Suspected Infection: Pneumonia Prior Doses of Antibiotics Received/Current Regimen: Medications Discontinued Medications Vancomycin HCl (Vancomycin) 1,000 mg in 200 mls @ 200 mls/hr IV Q12H KIRSETN Last Admin: 03/20/20 00:48 Dose: Not Given Labs: Sodium 131 mmol/L (136-145) L 03/19/20 07:20 Potassium 5.5 mmol/L (3.5-5.1) H 03/19/20 07:20 Chloride 101 mmol/L (98-107) 03/19/20 07:20 Carbon Dioxide 22.0 mmol/L (21.0-32.0) 03/19/20 07:20 Anion Gap 8 (5-15) 03/19/20 07:20 BUN 30 mg/dL (7-18) H 03/19/20 07:20 Creatinine 1.59 mg/dL (0.55-1.02) H 03/19/20 07:20 Est GFR (MDRD) Af Amer 42 mL/min (>60) L 03/19/20 07:20 Est GFR (MDRD) Non-Af 35 mL/min (>60) L 03/19/20 07:20 BUN/Creatinine Ratio 18.9 RATIO (10-20) 03/19/20 07:20 Glucose 514 mg/dL (74-106) H* 03/19/20 07:20 Vancomycin Trough 22.2 ug/mL (5.0-15.0) H 03/19/20 23:44 Microbiology: Microbiology 03/15/20 19:40 Blood Culture (Wb) - Right Hand Blood Culture - Preliminary No growth in 48 hours. 03/15/20 19:20 Blood Culture (Wb) - Anticubital Left Blood Culture - Preliminary No growth in 48 hours. 03/15/20 21:15 Urine, Clean Catch Urine Culture - Final Mixed Gram Positive Organisms 03/16/20 00:40 Mucosa - Nasopharyngeal Respiratory Panel (PCR) - Final 03/15/20 19:40 Mucosa - Nose SARS-CoV-2 Antigen (Rapid) - Final Weight used for dosin kg Estimated Creatinine Clearance: 36 Goal Trough: 15-20 mcg/mL Pharmacy Plan for Drug Dosing: Vancomycin trough level was elevated at 22.2. Held the dose that was scheduled for 03-20-20 @0030. Will re-draw a vanco level 03-20 @1130 and re-calculate dosing from there. Pharmacy Service will continue to monitor and adjust dosing as required. Follow-Up Labs: Trough Vancomycin - random level Labs to be done on [date and time ordered]: 03/20/20 @1130
[2020-03-20 05:24] LABS: Hematocrit 26.6 % (37-47); Hemoglobin 8.6 g/dL (12.0-15.0); Mean Corp Hgb Conc 32.3 g/dL (32-36); Mean Corpuscular Hgb 27.7 pg (27.0-32.0); Mean Corpuscular Volume 85.5 fL (81-99); POSITIVE COUNT YES; POSITIVE MORPHOLOGY YES; Platelet Count 302 K/mm3 (150-450); RBC Distribution Width CV 16.5 % (11.6-14.6); RBC Distribution Width SD 49.7 fl (35.1-43.9); Red Blood Count 3.11 M/mm3 (4.2-5.4); White Blood Count 11.2 K/mm3 (4.4-11.0)
[2020-03-20] MEDS: Acyclovir 200 MG Capsule 400 MG PO (05:24)
[2020-03-20 05:28] LABS: Differential Indicated MANUAL DIFF
[2020-03-20 05:41] LABS: Anion Gap 6 (5-15); BUN 36 mg/dL (7-18); BUN/Creat Ratio 26.9 RATIO (10-20); Chloride 105 mmol/L (98-107); Creatinine, Serum 1.34 mg/dL (0.55-1.02); EST Glomerular Filtration Rate 43 mL/min (>60); Est Glom Filt Rate - Afr Amer 52 mL/min (>60); Estimated Creatinine Clearance 42.87 ml/min; Glucose 356 mg/dL (74-106); Potassium 4.8 mmol/L (3.5-5.1); Sodium Level 134 mmol/L (136-145); Total Cells Counted 100 (MANUAL DIFF)
[2020-03-20 05:46] LABS: Lymphocyte 10 % (19-41); Metamyelocyte 1 % (0-1); Monocyte 5 % (0-10); Myelocyte 3 (0-0); Neutrophil-Band 1 % (0-5); Neutrophil-Segmented 80 % (47-70); Nucleated Red Bld Cells,Manual 2 % (0-5)
[2020-03-20 05:47] LABS: Absolute Neutrophil Count 9.1 X10^3/uL (2.0-7.7); Neutrophil # 9.08 X10^3/uL (2.7-7.7)
[2020-03-20 05:48] LABS: Absolute Lymphocyte Count 1.12 X10^3/uL (0.83-4.51); Lymphocyte # 1.12 X10^3/ul (4.0); Platelet Estimate ADEQUATE (ADEQ)
[2020-03-20 05:49] LABS: Anisocytosis 1+; Hypochromasia RARE; Macrocytosis RARE; Microcytosis RARE
[2020-03-20] MEDS: Ipratropium/Albuterol Sulfate 3 ML AMPUL.NEB INHALATION ×2 (07:09→10:56)
[2020-03-20 08:20] LABS: Bedside Glucose 317 mg/dL (70-110)
[2020-03-20] MEDS: Pregabalin 75 MG Capsule PO (09:00)
[2020-03-20] MEDS: Metoprolol Tartrate 25 MG Tablet 75 MG PO (09:00)
[2020-03-20] MEDS: Venlafaxine XR 150 MG Capsule PO (09:01)
[2020-03-20] MEDS: Folic Acid 1 MG Tablet PO (09:01)
[2020-03-20] MEDS: predniSONE 20 MG Tablet 40 MG PO (09:01)
[2020-03-20] MEDS: Pantoprazole Sodium 40 MG Tablet PO (09:01)
[2020-03-20] MEDS: Clopidogrel Bisulfate 75 MG Tablet PO (09:01)
[2020-03-20] MEDS: Isosorbide DN 30 MG Tablet PO (09:02)
[2020-03-20] MEDS: Calcium Acetate 667 MG Capsule PO (09:02)
[2020-03-20] MEDS: Aspirin E.C. 81 MG Tablet PO (09:02)
[2020-03-20] MEDS: Enoxaparin 40 MG/0.4 ML Syringe SC (09:04)
[2020-03-20] MEDS: Insulin Lispro 100 UNIT/ML INSULN.PEN SC ×2 (09:05→12:21)
[2020-03-20] MEDS: Insulin Lispro 100 UNIT/ML INSULN.PEN 60 UNIT SC ×2 (09:06→12:20)
--- NOTE | 2020-03-20 09:57 | CASEMGMT ---
Per Dr. Cain, pt is interested in HHC at this time. Pt provided with a list of local in-network HHC agencies at this time and this RN CM to check back to see what pt's choices are at this time. According to the [facility] dual HMO website, there are only 4 choices for pt at this time. Tanna MOTA CM
--- NOTE | 2020-03-20 10:46 | DCINST_ITS ---
You will use the following diet at home:: Calorie/Carbohydrate Controlled (specify 1200, 1400, etc), Cardiac Your food should be the consistency of: Regular Your liquids should be the consistency of: Regular/Thin Discharge Activity: Return to Normal Activity Allergies/Adverse Reactions: Allergies ciprofloxacin Allergy (Intermediate, Verified 03/15/20 19:04) Swelling cinnamon [Cinnamon] Allergy (Verified 03/15/20 19:04) Anaphylaxis Influenza Virus Vaccines Allergy (Verified 03/15/20 19:04) Shortness of breath liraglutide [From Victoza] Allergy (Verified 03/15/20 19:04) Anaphylaxis metronidazole [From Flagyl] Allergy (Verified 03/15/20 19:04) Hives Metronidazole HCl [From Flagyl] Allergy (Verified 03/15/20 19:04) Hives Penicillins Allergy (Verified 03/15/20 19:04) Hives Sulfa (Sulfonamide Antibiotics) Allergy (Verified 03/15/20 19:04) Hives codeine Adverse Reaction (Verified 03/15/20 19:04) Stops Ileostomy metformin HCl [From Glucophage] Adverse Reaction (Verified 03/15/20 19:04) Nausea ranolazine Adverse Reaction (Verified 03/15/20 19:04) Nausea/Vom/Diarrhea [id number] Reductase Inhibitor Adverse Reaction (Verified 03/15/20 19:04) Nausea/joints ache Medications to take at Discharge Aspirin E.C. [Ecotrin] 81 mg PO DAILY 01/11/18 Baclofen [Lioresal] 10 mg PO QHS 06/30/18 venlafaxine 150 mg capsule,extended release 24 hr 150 mg PO DAILY #90 cap 09/06/18 buprenorphine 15 mcg/hour weekly transdermal patch 1 patch TD SA 06/14/19 calcium acetate(phosphat bind) 667 mg tablet 667 mg PO BID #180 tab 07/06/19 Insulin Lispro [Humalog Kwikpen U-200] 45 unit SQ TIDCM 10/10/19 Metoprolol Tartrate 25 mg PO BID 10/10/19 Metoprolol Tartrate 50 mg PO BID 10/10/19 traZODone [Desyrel] 50 mg PO QHS 10/10/19 metoclopramide HCl 5 mg tablet 5 mg PO DAILY PRN PRN tab 10/20/19 atorvastatin 80 mg tablet 80 mg PO QHS #90 tab 10/24/19 Cholecalciferol (Vitamin D3) [Vitamin D3] 2,000 unit PO DAILY 02/16/20 Clopidogrel Bisulfate [Clopidogrel] 75 mg PO DAILY 02/16/20 Folic Acid 1 mg PO DAILY 02/16/20 Insulin Glargine,Hum.rec.anlog [Lantus Solostar] 100 unit SC QHS 02/16/20 Pantoprazole Sodium [Protonix] 40 mg PO DAILY 02/16/20 Acetaminophen [Tylenol Tablet] 650 mg PO Q6H PRN PRN tab 02/19/20 isosorbide dinitrate 30 mg tablet 30 mg PO BID #180 tab 02/27/20 flash glucose sensor See Rx Instructions .ROUTE .MEDSUPPLY #2 ea 03/09/20 pregabalin 75 mg capsule 75 mg PO BID #60 cap 03/15/20 Cefdinir [Omnicef [equiv]] 300 mg PO Q12H 2 Days #4 cap 03/20/20 predniSONE tablet 20 mg PO DAILY #9 tab 03/20/20 The following prescriptions were given: predniSONE tablet 20 mg PO DAILY #9 tab Transmission Status: Pending to [facility] [place]acy [id number] Primary Care Physician: Mala Mcgrath MD [Primary Care Provider] - Please follow up with your Primary Care Physician in: 1 week Test Results: Test results from this visit will be discussed in further detail at your follow- up appointment, if applicable. Please Follow Up With: Davide Baca MD When: call for an appt for 1-2 weeks
--- NOTE | 2020-03-20 10:50 | DS.PCM_ITS ---
Discharge Date and Diagnosis Date of Admission: 03/15/20 Date of Discharge: 03/20/20 - Secondary Discharge Diagnosis Chronic Problems: Chronic Problems (Last Updated 03/16/20 @ 08:[address] Mckayla Montgomery MD) Arthritis (Chronic) BMI 31.0-31.9,adult (Chronic) Diabetes (Chronic) Diabetic gastroparesis (Chronic) Benign essential hypertension (Chronic) 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) Secondary pulmonary arterial hypertension (Chronic) Chronic diastolic (congestive) heart failure (Chronic) Depression with anxiety (Chronic) Essential (primary) hypertension (Chronic) H/O coronary artery bypass surgery (Chronic 05/18/12) CABG x 4 JONES-LAD, SVG-D1, SVG-OM1, SVG-LPDA 05/18/2012 Atherosclerosis of coronary artery bypass graft without angina pectoris (Chronic) CABG x 4 JONES-LAD, SVG-D1, SVG-OM1, SVG-LPDA 05/18/2012 PCI-CLINTON mid D1 with a 2.25 x 12 Promus Synergy 01/12/2018 Mid LAD and Cx 08/30/2012, D1 and prox OM1 09/14/12, Prox SVG, Distal SVG to the Mid OM 10/31/2012 History of coronary artery stent placement (Chronic 01/12/18) PCI-CLINTON mid D1 with a 2.25 x 12 Promus Synergy 01/12/2018 Mid LAD and Cx 08/30/2012, D1 and prox OM1 09/14/12, Prox SVG, Distal SVG to the Mid OM 10/31/2012 COPD (chronic obstructive pulmonary disease) (Chronic) Anemia of chronic renal failure, stage 3 (moderate) (Chronic) Obstructive sleep apnea (Chronic) Noncompliant Right thyroid nodule (Chronic) 1.4 centimeter right sided nodule on CT scan Ulcerative colitis (Chronic) Hyperlipidemia (Chronic) DM2 (diabetes mellitus, type 2) (Chronic) Hospital Course and Treatment Imaging Results: STUDY: CTA CHEST REASON FOR EXAM: Female, 59 years old. ELEVATED D-DIMER WITH SOB RADIATION DOSAGE (If Supplied By Facility): CTDIvol = ( 28.01 ) mGy, DLP = ( 517.41 ) mGycm TECHNIQUE: The examination was performed with the intravenous administration of IV 100mL Isovue-370. Post-processing of the angiographic images was performed, with multiplanar reformation and 3D reconstruction. Individualized dose optimization techniques were used for this CT. COMPARISON: 07/28/2019 FINDINGS: Status post median sternotomy. Normal enhancement of the main pulmonary artery and right and left pulmonary arteries. Normal enhancement of the bilateral peripheral pulmonary arteries. There is no demonstrated pulmonary embolism. Normal thoracic aorta and visualized great vessels. There is no demonstrated aortic dissection. Normal heart and pericardium. Normal mediastinum. Normal hilar regions. Normal visualized trachea and bronchi. The lungs are well expanded. Bilateral peripheral patchy groundglass opacities consistent with subsegmental atelectasis or pneumonitis. Normal pleura. Normal chest wall structures. Normal osseous structures. Normal visualized upper abdomen. CT/CTA Chest W/WO Contrast IMPRESSION: 1. No CT evidence of pulmonary embolism. 2. Bilateral subsegmental atelectasis or pneumonitis. Commonly reported imaging features of Covid 19 pneumonia are present. Other processes such as influenza pneumonia and organizing pneumonia, as can be seen with drug toxicity and connective tissue disease, can cause a similar imaging pattern. HISTORY: SOB EXAM: XR Chest 1 View: COMPARISON: March 15, 2020 FINDINGS: # of images incl. paperwork: 1 Sternal wires and mediastinal clips persist Bilateral airspace disease persists Heart is not enlarged. No acute osseous pathology perceived. Pulmonary vascularity is distinct. No effusions. RAD/Chest 1 View (Portable) IMPRESSION: Airspace disease bilaterally. Disease is similar in severity to previous study. Findings could easily represent pneumonia. Operations: None Summary of Care Provided: Ms. Artis is a 59 year old WF who had a recent hospitalization for Covid 19 pneumonia from 02/15 to 02/19/2020 who was discharged on 2 L nasal cannula presented to the emergency department on 03/15/2020 with fever and ongoing hypoxia that had been worsening for approximately a week. She states that she had been feeling better and started having low-grade fevers. Her T-max at home was 101.6 and she noted that on the 2 L of oxygen she was discharged on her oxygen saturations were dropping into the 70s. She had associated pleuritic chest pain with tightness and cough. In the emergency department her oxygen saturations were normal on 2 L. She had a mildly elevated lactic acidosis at 2.9. Her creatinine was at baseline and her D-dimer was elevated at 1.26 therefore a CTA of her chest was done that was negative for pulmonary embolism but did show moderate pulmonary infiltrates bilaterally that appeared stable compared to her previous imaging. She was admitted to PCU and started IV antibiotics of Vanco and aztreonam secondary to penicillin allergy. We suspect her lack of lactic elevation was related to hypoxemia. Initially was maintained on 2 L nasal cannula but overnight on 03/17-03/18 she experienced hypoxemia with oxygen demand increasing to 6 L nasal cannula. At that time a repeat chest x-ray and a BMP were done and the patient was initiated on p.o. steroids prednisone for 40 mg. She was maintained on IV antibiotics during her hospitalization and completed 5 days prior to discharge. On the day of discharge she was satting 95 to 97% on 2 L at rest but did require 4 L with exertion. A prescription was initiated for this. The patient also had concerned about her fatigue and overall weakness related to her recent illnesses and home health care was initiated for physical therapy to continue after discharge. She was discharged on Omnicef for 2 more days given her multiple antibiotic allergies and a prednisone taper with 30 mg starting on 03/21/2020. Her blood cultures were negative, respiratory PCR was negative and urine culture was urogenital marie. Unfortunately patient was not able to produce a sputum culture that we can tailor her antibiotics to. MRSA PCR was negative. She is to follow-up with her primary care within the week. And she has been instructed to follow-up with Dr. Baca within the next 1 to 2 weeks if able. We also discussed that her blood sugars would probably be on the higher side with her steroids. Steroids are to taper by 10 mg every 3 days. Discharge diagnoses Acute respiratory failure secondary to HCAP with recent COVID-19 pneumonia Acute anemia-suspect related to Covid--> count stable on discharge CKD stage III D-dimer elevation with negative CTA DM-2 CAD status post CABG/stents Hypertension ANKITA Hyperlipidemia Ulcerative colitis Chronic pain Obesity Depression Discharge time greater than 35 minutes Subjective: Patient states she is feeling better today. Breathing is closer to where it was prior to admission. She is still requiring oxygen but she has been weaned to 2 L at rest. She is concerned about going home without any assistance as she is still weak. Therapy has recommended home health. She does also states she has a friend that will be coming in and out intermittently and may be able to stay with her at times. I did recommend that she does have her friend stay with her for maybe the first 1 to 2 days home after her hospitalization. - Physical Exam Vitals/I&O's: Vital Signs Temp Pulse Resp BP Pulse Ox 97.6 F L 94 18 154/62 H 92 03/20/20 08:50 03/20/20 09:00 03/20/20 08:50 03/20/20 09:00 03/20/20 10:38 Oxygen Flow Rate (L/min) [ 4 AMBULATION with Oxygen] Oxygen Flow Rate (L/min) 2 Oxygen Delivery Method Nasal Cannula Weight: 90.2 kg Body Mass Index (BMI) 31.2 Finger Stick Blood Glucose 463 Intake and Output for Last 24 Hours 03/18/20 03/19/20 03/20/20 23:59 23:59 23:59 Intake Total 1215 / 1215 1640 / 1640 250 / 250 Output Total 2325 / 2325 Balance 1215 / 1215 -685 / -685 250 / 250 General: Alert, Oriented x3, Cooperative, No apparent distress, Well developed, Well nourished, - - Obese white female, sitting up in chair next to the bed, appears comfortable, currently on 3 L nasal cannula oxygen saturations are 95 to 97% at rest HEENT: Atraumatic, PERRLA, EOMI, Normocephalic, EAC Clear Oral: Moist Mucosa, No Gingival or Mucosal Lesions/ Ulcerations, - - Dentures in place, no thrush Neck: Supple, Trachea Midline, - - Short thick neck Lungs: Clear to auscultation, Normal air movement, No rhonchi, No wheeze, No rales Cardiovascular: Regular rate, Regular Rhythm, Normal S1, Normal S2, No murmurs, No Ectopic Activity, No rub noted, No Gallop Abdomen: Bowel Sounds Present, Soft, Non Tender, Non-Distended, No Hepato- splenomegaly Extremities: No clubbing, No cyanosis, No edema, Capillary Refill Less than 3 Seconds, Peripheral Pulses Normal Skin: No rashes, No breakdown Musculoskeletal: No Tenderness to Palpation of Joints or Extremities, No Muscle Wasting, Arthritic Changes Lymphatic: No Cervical, Supraclavicular, or Inguinal Adenopathy Neurological: Cranial nerves II-XII grossly intact, Neuro grossly intact, Muscle tone normal, Coordination normal Psych/Mental Status: Normal Affect, Appropriate Microbiology Past 72 Hours 03/15/20 19:40 Blood Culture (Wb) - Right Hand Blood Culture - Preliminary No growth in 48 hours. 03/15/20 19:20 Blood Culture (Wb) - Anticubital Left Blood Culture - Preliminary No growth in 48 hours. 03/15/20 21:15 Urine, Clean Catch Urine Culture - Final Mixed Gram Positive Organisms Laboratory Results 03/19/20 14:36: POC Glucose 446 H 03/19/20 16:59: POC Glucose 475 H* 03/19/20 19:45: MRSA (PCR) Negative 03/19/20 21:02: POC Glucose 432 H 03/19/20 23:44: Vancomycin Trough 22.2 H 03/20/20 05:16: WBC 11.2 H, RBC 3.11 L, Hgb 8.6 L, Hct 26.6 L, MCV 85.5, MCH 27 .7, MCHC 32.3, RDW Std Deviation 49.7 H, RDW Coeff of Jan 16.5 H, Plt Count 302, MPV 12.0, Neut % (Auto) Not Reportable, Absolute Neuts (auto) 9.1 H, Absolute Lymphs (auto) 1.12, Total Counted 100, Neutrophils % (Manual) 80 H, Band Neutrophils % 1, Lymphocytes % (Manual) 10 L, Monocytes % (Manual) 5, Metamyelocytes % 1, Myelocytes % 3 H, Nucleated RBCs/100 WBC 2, Diff Path Review May foll, Platelet Estimate ADEQUATE, Hypochromasia RARE, Anisocytosis 1+, Microcytosis RARE, Macrocytosis RARE 03/20/20 05:16: Sodium 134 L, Potassium 4.8, Chloride 105, Carbon Dioxide 23.0, Anion Gap 6, BUN 36 H, Creatinine 1.34 H, Estim Creat Clear Calc 42.87, Est GFR (MDRD) Af Amer 52 L, Est GFR (MDRD) Non-Af 43 L, BUN/Creatinine Ratio 26.9 H, Glucose 356 H, Calcium 9.0 03/20/20 08:15: POC Glucose 317 H Current Medications Acetaminophen (Acetaminophen 325 Mg Tablet) 650 mg PO Q6H PRN PRN PRN Reason: Pain Score 1-10/Temp > 100.7 F Last Admin: 03/19/20 08:15 Dose: 650 mg Documented by: Acyclovir (Acyclovir 200 Mg Capsule) 400 mg PO TID [facility] Last Admin: 03/20/20 05:24 Dose: 400 mg Documented by: Albuterol Sulfate (Albuterol 2.5 Mg/3 Ml Vial.Neb.) 2.5 mg INHALATION Q2H PRN PRN PRN Reason: SOB/Wheezing Albuterol/Ipratropium (Ipratropium/Albuterol Sulfate 3 Ml Ampul.Neb) 3 ml INHALATION Q4HWA.RT [facility] Last Admin: 03/20/20 07:09 Dose: 3 ml Documented by: Aspirin (Aspirin E.C. 81 Mg Tablet) [facility] Last Admin: 03/20/20 09:02 Dose: 81 mg Documented by: Atorvastatin Calcium (Atorvastatin Calcium 80 Mg Tablet) 80 mg PO QHS [facility] Last Admin: 03/19/20 21:07 Dose: 80 mg Documented by: Baclofen (Baclofen 10 Mg Tablet) 10 mg PO QHS [facility] Last Admin: 03/19/20 21:07 Dose: 10 mg Documented by: Calcium Acetate (Calcium Acetate 667 Mg Capsule) [facility] Last Admin: 03/20/20 09:02 Dose: 667 mg Documented by: Cholecalciferol (Cholecalciferol (Vit D3) 1,000 Unit (25mcg)) 2,000 unit PO DAILY [facility] Last Admin: 03/20/20 09:01 Dose: 2,000 unit Documented by: Clopidogrel Bisulfate (Clopidogrel Bisulfate 75 Mg Tablet) 75 mg PO DAILY [facility] Last Admin: 03/20/20 09:01 Dose: 75 mg Documented by: Dextrose (Dextrose 50%-Water 25 Gm/50 Ml Disp.Syrin) 0 gm IV X1 PRN; Protocol PRN Reason: Hypoglycemia Enoxaparin Sodium (Enoxaparin 40 Mg/0.4 Ml Syringe) 40 mg SC DAILY [facility] Last Admin: 03/20/20 09:04 Dose: 40 mg Documented by: Folic Acid (Folic Acid 1 Mg Tablet) 1 mg PO DAILYCM [facility] Last Admin: 03/20/20 09:01 Dose: 1 mg Documented by: Glucagon (Glucagon 1 Mg/Ml Syringe) 1 mg IM .X1 PRN PRN Reason: Hypoglycemia Hydralazine HCl (Hydralazine 20 Mg/Ml Vial) 10 mg IV Q6H PRN PRN PRN Reason: for SBP>160 Sodium Chloride () 250 mls @ 15 mls/hr IV .[id number] PRN PRN Reason: Saline Flush Sodium Chloride () 250 mls @ 15 mls/hr IV .[id number] PRN PRN Reason: Additional IVPB Infusion Aztreonam 2 gm/ Sodium (Chloride) 100 mls @ 150 mls/hr IV Q8 [facility] Last Infusion: 03/20/20 06:30 Dose: Infused Documented by: Insulin Glargine (Insulin Glargine 100 Units/Ml Pen) 60 units SC BID [facility] Last Admin: 03/20/20 09:08 Dose: 60 units Documented by: Insulin Human Lispro (Insulin Lispro 100 Unit/Ml Insuln.Pen) 0 unit SC ACHS [facility]; Protocol Last Admin: 03/20/20 09:05 Dose: 9 u Documented by: Insulin Human Lispro (Insulin Lispro 100 Unit/Ml Insuln.Pen) 60 unit SC TIDAC [facility] Last Admin: 03/20/20 09:06 Dose: 60 units Documented by: Isosorbide Dinitrate (Isosorbide Dn 30 Mg Tablet) 30 mg PO BID [facility] Last Admin: 03/20/20 09:02 Dose: 30 mg Documented by: Metoclopramide HCl (Metoclopramide 5 Mg Tablet) 5 mg PO DAILY PRN PRN PRN Reason: NAUSEA Metoprolol Tartrate (Metoprolol Tartrate 25 Mg Tablet) 75 mg PO BID [facility] Last Admin: 03/20/20 09:00 Dose: 75 mg Documented by: Non-Formulary Medication (Buprenorphine) 1 patch [facility] Ondansetron HCl (Ondansetron 4 Mg/2 Ml Vial) 4 mg IV Q8H PRN PRN PRN Reason: NAUSEA/VOMITING Oxycodone HCl (Oxycodone 5 Mg Tablet) 5 mg PO Q6H PRN PRN PRN Reason: Pain Score 6-10 Last Admin: 03/19/20 15:45 Dose: 5 mg Documented by: Pantoprazole Sodium (Pantoprazole Sodium 40 Mg Tablet) 40 mg PO DAILY [facility] Last Admin: 03/20/20 09:01 Dose: 40 mg Documented by: Prednisone (Prednisone 20 Mg Tablet) 40 mg PO DAILY@0800 [facility] Last Admin: 03/20/20 09:01 Dose: 40 mg Documented by: Pregabalin (Pregabalin 75 Mg Capsule) 75 mg PO BID [facility] Last Admin: 03/20/20 09:00 Dose: 75 mg Documented by: Sodium Chloride (0.9% Saline Lock 10 Ml Syringe) 10 - 40 ml IV UD PRN PRN Reason: SALINE FLUSH Last Admin: 03/19/20 11:38 Dose: 10 ml Documented by: Trazodone HCl (Trazodone 50 Mg Tablet) 50 mg PO QHS [facility] Last Admin: 03/19/20 21:08 Dose: 50 mg Documented by: Venlafaxine HCl (Venlafaxine Xr 150 Mg Capsule) 150 mg PO DAILY [facility] Last Admin: 03/20/20 09:01 Dose: 150 mg Documented by: Discharge Activity: Return to Normal Activity Home Medications: Medications to take at Discharge Aspirin E.C. [Ecotrin] 81 mg PO DAILY 01/11/18 Baclofen [Lioresal] 10 mg PO QHS 06/30/18 venlafaxine 150 mg capsule,extended release 24 hr 150 mg PO DAILY #90 cap 09/06/18 buprenorphine 15 mcg/hour weekly transdermal patch 1 patch TD SA 06/14/19 calcium acetate(phosphat bind) 667 mg tablet 667 mg PO BID #180 tab 07/06/19 Insulin Lispro [Humalog Kwikpen U-200] 45 unit SQ TIDCM 10/10/19 Metoprolol Tartrate 25 mg PO BID 10/10/19 Metoprolol Tartrate 50 mg PO BID 10/10/19 traZODone [Desyrel] 50 mg PO QHS 10/10/19 metoclopramide HCl 5 mg tablet 5 mg PO DAILY PRN PRN tab 10/20/19 atorvastatin 80 mg tablet 80 mg PO QHS #90 tab 10/24/19 Cholecalciferol (Vitamin D3) [Vitamin D3] 2,000 unit PO DAILY 02/16/20 Clopidogrel Bisulfate [Clopidogrel] 75 mg PO DAILY 02/16/20 Folic Acid 1 mg PO DAILY 02/16/20 Insulin Glargine,Hum.rec.anlog [Lantus Solostar] 100 unit SC QHS 02/16/20 Pantoprazole Sodium [Protonix] 40 mg PO DAILY 02/16/20 Acetaminophen [Tylenol Tablet] 650 mg PO Q6H PRN PRN tab 02/19/20 isosorbide dinitrate 30 mg tablet 30 mg PO BID #180 tab 02/27/20 flash glucose sensor See Rx Instructions .ROUTE .MEDSUPPLY #2 ea 03/09/20 pregabalin 75 mg capsule 75 mg PO BID #60 cap 03/15/20 Cefdinir [Omnicef [equiv]] 300 mg PO Q12H 2 Days #4 cap 03/20/20 predniSONE tablet 20 mg PO DAILY #9 tab 03/20/20 Following Prescriptions Were Given to Patient: predniSONE tablet 20 mg PO DAILY #9 tab Transmission Status: Pending to [facility]/pharmacy #[id number] Primary Care Physician: Mala Mcgrath MD [Primary Care Provider] - Please follow up with your Primary Care Physician in: 1 week Please Follow Up With: Davide Baca MD When: call for an appt for 1-2 weeks Medical Necessity - Tobacco Use Smoking Status: Former smoker Meaningful Use Info Meaningful Use Diagnoses (Choose all that apply): None applicable Inpatient E&M: [id number] [facility]
--- NOTE | 2020-03-20 11:39 | PHA.DC.MC ---
Pharmacy Service has performed discharge medication reconciliation and counseling for this patient. 1. PREDNISONE 30MG PO DAILY X 3 DAYS, THEN 20MG PO X 3 DAYS, THEN 10MG X 3 DAYS 2. CEFDINIR 300MG PO Q12H X 2 DAYS The patient's discharge medication list was reviewed for discrepancies and discrepancies were resolved. Home Medications Aspirin E.C. [Ecotrin] 81 mg PO DAILY 01/11/18 Baclofen [Lioresal] 10 mg PO QHS 06/30/18 venlafaxine 150 mg capsule,extended release 24 hr 150 mg PO DAILY #90 cap 09/06/18 buprenorphine 15 mcg/hour weekly transdermal patch 1 patch TD SA 06/14/19 calcium acetate(phosphat bind) 667 mg tablet 667 mg PO BID #180 tab 07/06/19 Insulin Lispro [Humalog Kwikpen U-200] 45 unit SQ TIDCM 10/10/19 Metoprolol Tartrate 25 mg PO BID 10/10/19 Metoprolol Tartrate 50 mg PO BID 10/10/19 traZODone [Desyrel] 50 mg PO QHS 10/10/19 metoclopramide HCl 5 mg tablet 5 mg PO DAILY PRN PRN tab 10/20/19 atorvastatin 80 mg tablet 80 mg PO QHS #90 tab 10/24/19 Cholecalciferol (Vitamin D3) [Vitamin D3] 2,000 unit PO DAILY 02/16/20 Clopidogrel Bisulfate [Clopidogrel] 75 mg PO DAILY 02/16/20 Folic Acid 1 mg PO DAILY 02/16/20 Insulin Glargine,Hum.rec.anlog [Lantus Solostar] 100 unit SC QHS 02/16/20 Pantoprazole Sodium [Protonix] 40 mg PO DAILY 02/16/20 Acetaminophen [Tylenol Tablet] 650 mg PO Q6H PRN PRN tab 02/19/20 isosorbide dinitrate 30 mg tablet 30 mg PO BID #180 tab 02/27/20 flash glucose sensor See Rx Instructions .ROUTE .MEDSUPPLY #2 ea 03/09/20 pregabalin 75 mg capsule 75 mg PO BID #60 cap 03/15/20 Cefdinir [Omnicef [equiv]] 300 mg PO Q12H 03/20/20 predniSONE tablet 20 mg PO DAILY #9 tab 03/20/20 The patient was counseled on the following discharge medications and changes in medications for homegoing were reviewed. The Reason for Use, instructions for use, and potential side effects were reviewed for all new medications. The patient's questions regarding all of their medications were answered. The patient was able to verbally demonstrate an understanding of their discharge medications.
--- NOTE | 2020-03-20 11:39 | CASEMGMT ---
Pt qualifies for 4L with ambulation at this time. Pt is already on 2L continuous at home thru [facility]. Pt is 95% on 2L at this time. New order for 2L at rest and 4L w/ exertion faxed to [facility] at this time. Pt's sig other is also inquiring about a shower chair for pt at discharge as well as questions regarding pt's O2 tanks and humidified air. Call to [place] at [facility] with questions and then pt/sig other updated at this time, voice understanding. [facility] [place] not supply shower chairs at this time and per Joanna at [facility], they do not either. Call to [facility] and they can run thru insurance but pt's sig other would prefer it go thru [facility] in [place] and states I know they have shower chairs. Call to [facility] and per pharmacist, they cannot run DME thru insurance and recommend [facility] in [place] but pt/sig other decline for this RN CM to send thru [facility] at this time and sig other states, 'We will just pay for it out of pocket.' Verbally, per therapy, they do not feel that pt needs any further therapy at this time and encouraged pt to be more active at home. Pt/sig other also decline [facility] at this time and pt states 'I don't think I need any more therapy, she(pointing at sig other)can help me.' Pt/sig other aware to call [facility] or stop at [facility], if they need more tanks, voice understanding. Sig other feels that pt is discharging today because 'it's day 5 and you always discharge pt's on day 5.' Advised sig other that per physician, pt is medically ready for discharge today and that it has nothing to do with how many days pt has been here but sig other insists that is not so. Dr. Cain and Alissa, U clinical director, updated on all, voice understanding. Pt states that she also received her IMM previously and is aware of what it's for. Sig other also states that she wishes DME would have been set up days ago and this RN CM advised her that shower chair was not recommended till today and also that most insurances will not cover equipment until pt is discharged. Pt voices no further questions/concerns/needs at this time. SStaten RN CM
[2020-03-20 12:00] LABS: Bedside Glucose 464 mg/dL (70-110)
[2020-03-20 12:28] LABS: Vancomycin, Random Level 16.3 ug/mL (0.0-15.0)
[2020-03-20 13:11] LABS: Pathologist Review Reviewed
[2020-03-21 13:20] LABS: Pathologist Review Reviewed
--- NOTE | 2020-03-21 15:13 | CASEMGMT ---
SVETLANA RAINEY Discharge Follow-up Phone Call: KIMI: Elvia Strata: 4 Call Date: 03/21/20 Discharge Date: 03/20/20 Time of Call: 1510 Duration: 5 min Admitting Diagnosis: Pneumonia SVETLANA RAINEY completed follow-up phone call after recent hospitalization. Patient states she is doing ok, about the same. Patient states she had no questions regarding discharge instructions. Patient was able to fill prescriptions without any issues. Patient has follow-up appts scheduled. Patient states she is wearing her oxygen and adjusting with ambulation. Patient had no further questions or concerns at this time.
== END 2020-03-20 12:49 | disposition home or self-care (01) | DRG 193 ==
LOC: ED 19:44 → PCU 22:28
PROVIDERS: Hospitalist; Admitting Provider Internal Medicine; Emergency Provider Emergency Medicine; PCP Internal Medicine; Visit Provider Internal Medicine
DX: J18.9 Pneumonia, unspecified organism (principal); J96.21 Acute and chronic respiratory failure with hypoxia; J44.0 Chronic obstructive pulmonary disease with (acute) lower respiratory infection; I13.0 Hypertensive heart and chronic kidney disease with heart failure and stage 1 through stage 4 chronic kidney disease, or unspecified chronic kidney disease; I50.32 Chronic diastolic (congestive) heart failure; K51.90 Ulcerative colitis, unspecified, without complications; E87.2 Acidosis; J44.1 Chronic obstructive pulmonary disease with (acute) exacerbation; Z86.16 Personal history of COVID-19; I25.10 Atherosclerotic heart disease of native coronary artery without angina pectoris; N18.30 Chronic kidney disease, stage 3 unspecified; G47.33 Obstructive sleep apnea (adult) (pediatric); E66.9 Obesity, unspecified; E11.22 Type 2 diabetes mellitus with diabetic chronic kidney disease; E11.43 Type 2 diabetes mellitus with diabetic autonomic (poly)neuropathy; G89.29 Other chronic pain; D64.9 Anemia, unspecified; F41.8 Other specified anxiety disorders; M19.90 Unspecified osteoarthritis, unspecified site; E11.42 Type 2 diabetes mellitus with diabetic polyneuropathy; E78.49 Other hyperlipidemia; L40.9 Psoriasis, unspecified; Z87.891 Personal history of nicotine dependence; Z68.31 Body mass index [BMI] 31.0-31.9, adult
CPT/HCPCS: 36415; 71045; 71275; 80048; 80053; 80202; 81001; 82962; 83605; 83880; 84484; 85025; 85379; 85610; 85730; 87040; 87086; 87088; 87426; 87633; 87641; 93005; 94640; 94667; 94668; 97110; 97116; 97162; 97166; 97530; 97535; 97802; 97803; 99251; 99285; J7030; J7040; J7050; Q9967; A4216; G0463

== ENCOUNTER → 2020-04-17 11:38 | Outpatient (CLI) | payer MEDICARE, MEDICAID, SELFPAY ==
[2019-06-22 12:51] VITALS: BMI 30.9
[2020-04-17 11:02] VITALS: BMI 33.0
[2020-04-17 12:40] LABS: Absolute Lymphocyte Count 1.45 X10^3/uL (0.83-4.51); Absolute Neutrophil Count 4.5 X10^3/uL (2.0-7.7); Basophil# 0.07 X10^3/uL; Eosinophil# 0.52 X10^3/uL; Eosinophils% 7.3 % (0-5); Hematocrit 35.5 % (37-47); Hemoglobin 10.9 g/dL (12.0-15.0); Lymphocyte # 1.45 X10^3/ul (4.0); Lymphocyte % 20.4 % (19-41); Mean Corp Hgb Conc 30.7 g/dL (32-36); Mean Corpuscular Hgb 27.7 pg (27.0-32.0); Mean Corpuscular Volume 90.1 fL (81-99); Mean Platelet Vol. 12.9 fl (6.2-12.0); Monocyte# 0.42 X10^3/uL; Monocyte% 5.9 % (0-10); NRBC Flagged by Analyzer 0 % (0-5); Neutrophil # 4.54 X10^3/uL (2.7-7.7); Platelet Count 182 K/mm3 (150-450); RBC Distribution Width CV 17.2 % (11.6-14.6); RBC Distribution Width SD 55.8 fl (35.1-43.9); Red Blood Count 3.94 M/mm3 (4.2-5.4); White Blood Count 7.1 K/mm3 (4.4-11.0)
[2020-04-17 13:00] LABS: BNP,B-Type NATRIURETIC PEPTIDE 57.4 pg/mL (0-100)
[2020-04-17 13:11] LABS: ALB/GLOB Ratio 0.7 RATIO (0.9-2.4); AST(SGOT) 19 U/L (15-37); Alanine Aminotransfer ALT/SGPT 18 U/L (13-56); Albumin, Serum 3.1 g/dL (3.2-5.0); Alkaline Phosphatase 144 U/L (45-117); Anion Gap 4 (5-15); BUN 16 mg/dL (7-18); BUN/Creat Ratio 11.6 RATIO (10-20); Calcium,Total 9.3 mg/dL (8.5-10.1); Chloride 102 mmol/L (98-107); Creatinine, Serum 1.38 mg/dL (0.55-1.02); EST Glomerular Filtration Rate 41 mL/min (>60); Est Glom Filt Rate - Afr Amer 50 mL/min (>60); Globulin 4.5 g/dL (2.2-4.2); Glucose 382 mg/dL (74-106); Potassium 3.9 mmol/L (3.5-5.1); Protein, Total 7.6 g/dL (6.4-8.2); Sodium Level 138 mmol/L (136-145)
== END ==
PROVIDERS: PCP Internal Medicine; Referring Provider Internal Medicine; Visit Provider Internal Medicine
DX: I50.32 Chronic diastolic (congestive) heart failure (principal)
CPT/HCPCS: 80053; 83880; 85025

== ENCOUNTER → 2020-04-30 09:45 | Outpatient (CLI) | payer MEDICARE, MEDICAID, SELFPAY ==
[2019-06-22 12:51] VITALS: BMI 30.9
[2020-04-17 11:02] VITALS: BMI 33.0
--- NOTE | 2020-04-30 09:47 | ECHOCS_ITS ---
Reason For Study: SOB Procedure This was a 2D Doppler, Color Flow transthoracic echocardiogram. The study was technically difficult. Contrast injection was performed. Exam performed in department. Left Ventricle Left ventricular systolic function is normal. The estimated ejection fraction is 65 %. Diastolic function is indeterminate. No regional wall motion abnormalities noted. Right Ventricle Normal RV size. Normal systolic function. Atria The left atrium is mildly enlarged. Normal right atrium. No doppler evidence for ASD. Mitral Valve The mitral papillary muscle appears thickened and/or calcified. Mild focal mitral valve calcification of the anterior leaflet. Mild (1+) mitral valve insufficiency. Tricuspid Valve Normal tricuspid valve. Trivial tricuspid valve insufficiency. Unable to estimate RV systolic pressure/pulmonary artery pressure due to technically difficult study. Aortic Valve Trisinus/trileaflet aortic valve. Normal aortic valve. Pulmonic Valve The pulmonic valve is not well visualized. Trivial pulmonic valve insufficiency. Great Vessels Normal sized aortic root. Pericardium/Pleural No pericardial effusion. Medication 22 gauge I.V. with prn adaptor inserted into right arm. Diluted definity 3ml given slow IV push to enhance endocardial definition. MMode/2D Measurements & Calculations RVDd: 3.0 cm Ao root diam: 2.9 cm LAV(MOD-bp): 36.9 ml LAV(MOD-bp) Indexed: 17.9 ml/m2 LAV(MOD-sp2): 39.7 ml LAV(MOD-sp4): 34.8 ml SV(MOD-sp4): 76.2 ml SV(sp4-el): 78.2 ml LVAd ap4: 32.2 cm2 EDV(MOD-sp4): 107.9 ml EDV(sp4-el): 108.9 ml LVAs ap4: 16.3 cm2 ESV(MOD-sp4): 31.7 ml ESV(sp4-el): 30.8 ml EF(MOD-sp4): 70.7 % EF(sp4-el): 71.7 % LA dimension(2D): 4.3 cm LA A4 area: 14.2 cm2 RA A4 area: 9.1 cm2 Doppler Measurements & Calculations MV E max los: 77.5 cm/sec Lat Peak E' Ols: 6.1 cm/sec Med Peak E' Los: 5.2 cm/sec MV A max los: 101.6 cm/sec E/E' lat: 12.6 E/E' med: 15.0 MV E/A: 0.76 Ao V2 max: 160.7 cm/sec LV V1 max: 120.6 cm/sec PA V2 max: 127.9 cm/sec Ao max P.3 mmHg LV V1 max P.8 mmHg Interpretation Summary The study was technically difficult. Contrast injection was performed. Left ventricular systolic function is normal. The estimated ejection fraction is 65 %. The left atrium is mildly enlarged. The mitral papillary muscle appears thickened and/or calcified. Mild focal mitral valve calcification of the anterior leaflet. Mild (1+) mitral valve insufficiency. Trivial tricuspid valve insufficiency. Trivial pulmonic valve insufficiency. Unable to estimate RV systolic pressure/pulmonary artery pressure due to technically difficult study. Diastolic function is indeterminate. Ordering Physician: Mala Mcgrath Referring Physician: Mala Mcgrath Performed By: Susannah Vincent RDCS
[2020-04-30 14:27] LABS: Bacteria 0 SEEN /hpf (None Seen); Mucous, Urine 0 SEEN /hpf (<or=2+)
[2020-04-30 15:48] LABS: Color, Urine Yellow (Yellow); Glucose, Dipstick 1000 mg/dl (Normal); Ketone-Dipstick 5 mg/dl (Negative); Leukocyte Esterase-Dipstick 100 /ul (Negative); Nitrite-Dipstick Negative (Negative); Occult Blood-Urine 10 /ul (Negative); Protein-Dipstick 100 mg/dl (Negative); Specific Gravity, Urine 1.025 (1.002-1.030); Urine Bilirubin Dipstick Negative (Negative); Urine Clarity Clear (Clear); Urine Urobilinogen 1 mg/dl (Normal)
[2020-04-30 16:01] LABS: Vitamin B12 378 pg/mL (211-911); Vitamin D,25 Hydroxy 32.6 ng/mL
[2020-04-30 16:19] LABS: Red Blood Cells-Urine 0-5 SEEN /hpf (0-5); Squamous Epithelial Cells - UA 0-5 SEEN /hpf (5-10); White Blood Cells 0-5 SEEN /hpf (0-5)
[2020-04-30 16:20] LABS: Hyaline Cast 0-5 SEEN /lpf (0-5)
[2020-04-30 16:43] LABS: ALB/GLOB Ratio 0.7 RATIO (0.9-2.4); AST(SGOT) 24 U/L (15-37); Alanine Aminotransfer ALT/SGPT 21 U/L (13-56); Albumin, Serum 3.4 g/dL (3.2-5.0); Alkaline Phosphatase 140 U/L (45-117); Anion Gap 7 (5-15); BUN 23 mg/dL (7-18); BUN/Creat Ratio 14.8 RATIO (10-20); Calcium,Total 9.2 mg/dL (8.5-10.1); Chloride 102 mmol/L (98-107); Creatinine, Serum 1.55 mg/dL (0.55-1.02); EST Glomerular Filtration Rate 36 mL/min (>60); Est Glom Filt Rate - Afr Amer 44 mL/min (>60); Globulin 4.6 g/dL (2.2-4.2); Glucose 392 mg/dL (74-106); Magnesium 1.4 mg/dL (1.6-2.6); Potassium 4.4 mmol/L (3.5-5.1); Sodium Level 135 mmol/L (136-145); T4 Free Direct 0.86 ng/dL (0.76-1.46)
== END ==
PROVIDERS: Nurse Practitioner Family; PCP Internal Medicine; Referring Provider Internal Medicine; Visit Provider Internal Medicine
DX: R41.82 Altered mental status, unspecified (principal); R09.02 Hypoxemia; R25.1 Tremor, unspecified; I12.9 Hypertensive chronic kidney disease with stage 1 through stage 4 chronic kidney disease, or unspecified chronic kidney disease; E11.22 Type 2 diabetes mellitus with diabetic chronic kidney disease; N18.30 Chronic kidney disease, stage 3 unspecified; R06.02 Shortness of breath; R06.00 Dyspnea, unspecified; I27.21 Secondary pulmonary arterial hypertension; Z68.31 Body mass index [BMI] 31.0-31.9, adult
CPT/HCPCS: 36415; 80053; 81001; 82140; 82306; 82607; 82746; 83735; 84439; 84443; 87086; 87088; 93306; Q9957; A4216; C8929

== ENCOUNTER → 2020-05-06 11:21 | Outpatient (CLI) | payer MEDICARE, MEDICAID, SELFPAY ==
[2019-06-22 12:51] VITALS: BMI 30.9
[2020-04-17 11:02] VITALS: BMI 33.0
[2020-05-06 12:47] LABS: Anion Gap 9 (5-15); BUN 16 mg/dL (7-18); BUN/Creat Ratio 11.9 RATIO (10-20); Calcium,Total 9.2 mg/dL (8.5-10.1); Chloride 101 mmol/L (98-107); Creatinine, Serum 1.35 mg/dL (0.55-1.02); EST Glomerular Filtration Rate 42 mL/min (>60); Est Glom Filt Rate - Afr Amer 51 mL/min (>60); Glucose 292 mg/dL (74-106); Potassium 4.2 mmol/L (3.5-5.1); Sodium Level 137 mmol/L (136-145)
== END ==
PROVIDERS: PCP Internal Medicine; Visit Provider Nurse Practitioner Family
DX: R79.89 Other specified abnormal findings of blood chemistry (principal); N18.9 Chronic kidney disease, unspecified
CPT/HCPCS: 36415; 80048; 82140

== ENCOUNTER → 2020-06-25 10:32 | Outpatient (CLI) | payer MEDICARE, MEDICAID, SELFPAY ==
[2019-06-22 12:51] VITALS: BMI 30.9
[2020-06-20 09:10] VITALS: BMI 31.8
[2020-06-25 11:52] LABS: Protein, Urine (Random) 78.4 mg/dL (<11.9); Protein:Creat Ratio 747 mg/g CRE (0-200)
[2020-06-25 12:27] LABS: Anion Gap 11 (5-15); BUN 36 mg/dL (7-18); Calcium,Total 9.5 mg/dL (8.5-10.1); Chloride 104 mmol/L (98-107); Creatinine, Serum 1.64 mg/dL (0.55-1.02); EST Glomerular Filtration Rate 34 mL/min (>60); Est Glom Filt Rate - Afr Amer 41 mL/min (>60); Glucose 352 mg/dL (74-106); Potassium 3.9 mmol/L (3.5-5.1); Sodium Level 138 mmol/L (136-145)
== END ==
PROVIDERS: PCP Internal Medicine; Referring Provider Internal Medicine Nephrology; Visit Provider Internal Medicine Nephrology
DX: N18.32 Chronic kidney disease, stage 3b (principal)
CPT/HCPCS: 36415; 80048; 82570; 84156

== ENCOUNTER → 2020-07-31 16:09 | Outpatient (CLI) | payer MEDICARE, MEDICAID, SELFPAY ==
[2019-06-22 12:51] VITALS: BMI 30.9
[2020-07-24 14:26] VITALS: BMI 32.1
--- NOTE | 2020-07-31 16:14 | RAD_ITS ---
STUDY: X-RAY - LUMBAR SPINE REASON FOR EXAM: Female, 60 years old. FALL TECHNIQUE: 3 view(s) of the lumbar spine were obtained. COMPARISON: None FINDINGS: There is straightening of the normal lumbar lordosis. There is no substantial scoliosis. There is a normal alignment of the vertebrae. Normal vertebral bodies and endplates. Focal disc space narrowing and osteophyte formation at L5/S1 consistent with degenerative disc disease. The soft tissue structures are unremarkable. RAD/Lumbar Spine 2 or 3 Views IMPRESSION: Focal degenerative disc disease at L5/S1 with straightening of the normal lordotic curvature. Electronically Signed: Houston Ann MD at 10:48 EDT Tel , Service support ,
--- NOTE | 2020-07-31 16:20 | RAD_ITS ---
STUDY: X-RAY - RIGHT KNEE REASON FOR EXAM: Female, 60 years old. FALL TECHNIQUE: 4 view(s) of the knee. COMPARISON: None. FINDINGS: Normal visualized distal femur. Normal visualized proximal tibia and fibula. Normal proximal tibiofibular articulation. There is mild degenerative arthrosis of the medial femorotibial compartment. Normal lateral femorotibial compartment. Normal patellofemoral articulation. 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 The soft tissue structures are unremarkable. RAD/Knee 4 or More Views IMPRESSION: CPPD with mild arthrosis. Electronically Signed: Houston Ann MD at 10:49 EDT Tel , Service support ,
== END ==
PROVIDERS: PCP Internal Medicine; Referring Provider Anesthesiology Pain Medicine; Visit Provider Anesthesiology Pain Medicine
DX: M25.561 Pain in right knee (principal); M54.9 Dorsalgia, unspecified
CPT/HCPCS: 72100; 73564

== ENCOUNTER 2020-09-18 07:39 | Emergency (ER) | payer MEDICARE, MEDICAID, SELFPAY ==
[2019-06-22 12:51] VITALS: BMI 30.9
[2020-08-02 08:07] VITALS: BMI 32.5
[2020-09-18 07:40] VITALS: BP 171/65; PULSE 90; RESP 18; TEMP 36.9; O2SAT 99; BMI 33.5
--- NOTE | 2020-09-18 07:54 | CT_ITS ---
STUDY: CT BRAIN WITHOUT CONTRAST REASON FOR EXAM: Female, 60 years old. Headache RADIATION DOSAGE (If Supplied By Facility): CTDIvol = ( 44.99 ) mGy, DLP = ( 796.11 ) mGycm TECHNIQUE: Transaxial CT imaging of the brain was performed without administration of intravenous contrast material. Individualized dose optimization techniques were used for this CT. COMPARISON: No relevant priors. FINDINGS: Normal soft tissue structures. Normal calvarium. Normal size ventricles and extra-axial spaces for the patient''s age. Normal white matter tracts of the cerebral hemispheres. Normal basal ganglia and thalami. Normal brainstem. Normal cerebellum. There is no intracranial hemorrhage. There are no findings of an acute ischemic infarction. Normal visualized paranasal sinuses. CT/Brain/Head without Contrast IMPRESSION: Normal unenhanced CT scan of the brain. Electronically Signed: Houston Ann MD at 10:50 EDT Tel , Service support ,
--- NOTE | 2020-09-18 07:58 | EDS_ITS ---
HPI HPI - GI History of Present Illness Chief Complaint: Nausea/Vomiting Informant: patient Abdominal Pain/Flank Pain Onset: Days (5) Context: Gradual Onset Timing: Continuous Quality: Aching, Cramping and Sharp Location: Diffuse Worsened by: - (Standing and walking) Relieved by: Nothing Nausea/Vomiting/Emesis GI Symptom: Positive for Nausea and Vomiting Onset: Days (5) Quality: Negative for Blood streaks, Coffee ground and Hematemesis Diarrhea/Melena/Hematochezia GI Symptom: Positive for Diarrhea; Negative for Melena and Hematochezia Associated Symptoms Associated Symptoms: Negative for Dysuria, Hematuria and Urgency Narrative Narrative: Patient presents with nausea and vomiting that has been constant over the past 5 days. Patient states she got her second COVID-19 vaccine 5 days ago and started with the nausea and vomiting 4 days ago. Patient states she is unable to keep anything down. Patient denies any hematemesis or coffee-ground emesis. Patient states she has a history of an ileostomy and her stools are always watery. Patient admits to some decreased output of her stools. Patient denies any melena or hematochezia. Patient also admits to decreased urine output but denies any dysuria or hematuria. Patient describes her pain as sharp and aching over the upper abdomen and cramping over the lower abdomen. Patient states her pain is worse with standing and walking. [facility] Medical History Anemia of chronic renal failure, stage 3 (moderate) Arthritis Atherosclerosis of coronary artery bypass graft without angina pectoris Atherosclerotic heart disease of [place] coronary artery without angina pectoris BMI 31.0-31.9,adult Chronic diastolic (congestive) heart failure Chronic respiratory failure Chronic respiratory failure with hypoxia, on home O2 therapy CKD (chronic kidney disease) stage 3, GFR 30-59 ml/min COPD (chronic obstructive pulmonary disease) Coronary artery disease Depression Depression with anxiety Diabetes Diabetic gastroparesis DM2 (diabetes mellitus, type 2) Essential (primary) hypertension FCHL (familial combined hyperlipidemia) Gastroparesis Hyperlipidemia Hypertensive chronic kidney disease with stage 1 through stage 4 chronic kidney disease, or unspecified chronic kidney disease Menieres disease Obstructive sleep apnea Psoriasis Right thyroid nodule Secondary pulmonary arterial hypertension 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 2 diabetes mellitus Thyroid mass Type 2 diabetes mellitus with diabetic polyneuropathy Ulcerative colitis Home Medications aspirin 81 mg PO DAILY 01/11/18 [History Last Taken 02/15/20] baclofen 10 mg PO QHS 06/30/18 [History Last Taken 02/15/20] buprenorphine 15 mcg/hour weekly transdermal patch 1 patch TD SA 06/14/19 [History Last Taken 02/10/20] metoclopramide HCl 5 mg tablet 5 mg PO DAILY PRN PRN tab 10/20/19 [History Last Taken Unknown] atorvastatin 80 mg tablet 80 mg PO QHS #90 tab 10/24/19 [Rx Last Taken 02/15/20] cholecalciferol (vitamin D3) 2,000 unit PO DAILY 02/16/20 [History Last Taken 02/15/20] folic acid 1 mg PO DAILY 02/16/20 [History Last Taken 02/15/20] insulin glargine 100 unit SC QHS 02/16/20 [History Last Taken 02/15/20] acetaminophen 650 mg PO Q6H PRN PRN tab 02/19/20 [Rx Last Taken Unknown] isosorbide dinitrate 30 mg tablet 30 mg PO BID #180 tab 02/27/20 [Rx Last Taken Unknown] flash glucose sensor #2 ea 03/09/20 [Rx Last Taken Unknown] albuterol sulfate 2.5 mg INHALATION Q4H PRN #180 ml 03/28/20 [Rx Last Taken Unknown] calcium acetate(phosphat bind) 667 mg tablet 667 mg PO BID #180 tab 04/04/20 [Rx Last Taken Unknown] Wheel Chair #1 ea 04/17/20 [Rx Last Taken Unknown] nystatin 100,000 unit/mL oral suspension 5 ml PO Q6H 10 Days #200 ml 04/30/20 [Rx Last Taken Unknown] venlafaxine 75 mg tablet 75 mg PO DAILY 04/30/20 [History Last Taken Unknown] clopidogrel 75 mg tablet See Rx Instructions .ROUTE .COMPLEX #90 tablet 05/16/20 [Rx Last Taken Unknown] trazodone 50 mg tablet See Rx Instructions .ROUTE .COMPLEX #90 tablet 05/27/20 [Rx Last Taken Unknown] metoprolol tartrate 25 mg tablet 25 mg PO BID #180 tablet 05/31/20 [Rx Last Taken Unknown] metoprolol tartrate 50 mg tablet 50 mg PO BID #180 tablet 05/31/20 [Rx Last Taken Unknown] colestipol 1 gram tablet 1 gm PO BID tablet 06/20/20 [History Last Taken Unknown] hydrochlorothiazide 25 mg tablet 25 mg PO DAILY #90 tablet 06/20/20 [Rx Last Taken Unknown] pantoprazole 40 mg tablet,delayed release 40 mg PO DAILY #90 tablet 06/20/20 [Rx Last Taken Unknown] dicyclomine 20 mg tablet 20 mg PO QHS #90 tab 07/02/20 [Rx Last Taken Unknown] budesonide-formoterol HFA 160 mcg-4.5 mcg/actuation aerosol inhaler 2 puff INHALATION BID #1 ea 07/19/20 [Rx Last Taken Unknown] pregabalin 75 mg capsule 75 mg PO BID #60 cap 08/02/20 [Rx Last Taken Unknown] insulin lispro 200 unit/mL (3 mL) subcutaneous pen 60 unit SC TIDCM #36 ml MDD 240 08/23/20 [Rx Last Taken Unknown] Allergy/AdvReac Type Severity Reaction Status Date / Time ciprofloxacin Allergy Intermediate Swelling Verified 09/18/20 07:44 cinnamon [Cinnamon] Allergy Anaphylaxis Verified 09/18/20 07:44 Influenza Virus Vaccines Allergy Shortness Verified 09/18/20 07:44 of breath liraglutide [From Victoza] Allergy Anaphylaxis Verified 09/18/20 07:44 metronidazole [From Flagyl] Allergy Hives Verified 09/18/20 07:44 Metronidazole HCl Allergy Hives Verified 09/18/20 07:44 [From Flagyl] Penicillins Allergy Hives Verified 09/18/20 07:44 Sulfa (Sulfonamide Allergy Hives Verified 09/18/20 07:44 Antibiotics) codeine AdvReac Stops Verified 09/18/20 07:44 Ileostomy metformin HCl AdvReac Nausea Verified 09/18/20 07:44 [From Glucophage] ranolazine AdvReac Nausea/Vom/ Verified 09/18/20 07:44 Diarrhea [id number] Reductase AdvReac Nausea/joints Verified 09/18/20 07:44 Inhibitor ache Family History Mother CVA (cerebral vascular accident) Diabetes Brother Heart disease of CAD at 65 Myocardial infarction Pancreatitis Father Cancer lymphomia Lymphoma Grandmother Myocardial infarction of [place] in her 70s Sister COPD (chronic obstructive pulmonary disease) Surgical History H/O colectomy H/O coronary artery bypass surgery (05/18/12) H/O sinus surgery H/O total hysterectomy history closed fissure History of cholecystectomy History of coronary artery stent placement (01/12/18) ileostomy Ileostomy status left thumb surgery Social History Smoking Status: Former smoker alcohol intake: never substance use type: does not use caffeine: Yes Type: coffee eating out: 1-3 times/week what type of physical activity do you participate in: none seatbelt use: always do you feel safe at home: Yes ROS ROS ED Constitutional Constitutional ED: Denies chills or fever(s) Eyes Eyes: Denies blurry vision or change in vision ENT ENT ED: Denies rhinorrhea or sore throat Cardiovascular Cardiovascular: Reports chest pain; Denies palpitations Respiratory/Chest Respiratory/Chest: Reports dyspnea; Denies cough Gastrointestinal Gastrointestinal: Reports abdominal pain, nausea and vomiting Genitourinary Genitourinary ED: Denies dysuria or hematuria Musculoskeletal Musculoskeletal: Denies back pain or neck pain Integumentary Denies abscess or rash Neurologic Neurologic: Reports headache(s); Denies weakness Allergic/Immunologic Allergic/Immunologic ED: Denies mouth swelling or urticaria EXAM Physical Exam Const Vital Signs: 09/18/20 07:40 09/18/20 08:10 09/18/20 10:37 Temperature 98.4 F Temperature Source Oral Pulse Rate 90 97 Respiratory Rate 18 19 H Blood Pressure 171/65 H Blood Pressure Mean 100 Pulse Ox 99 97 Oxygen Delivery Method Nasal Cannula Nasal Cannula Nasal Cannula Oxygen Flow Rate (L/min) 4 4 4 09/18/20 12:00 09/18/20 12:38 Temperature Temperature Source Pulse Rate 100 86 Respiratory Rate 19 H 17 Blood Pressure 234/119 H 189/102 H Blood Pressure Mean 157 Pulse Ox 96 96 Oxygen Delivery Method Room Air Oxygen Flow Rate (L/min) Positive well nourished, well developed and obese General Appearance ED: well developed Nutritional Appearance: obese Neck supple and no JVD Resp normal respiratory effort and clear to auscultation bilaterally Cardio regular rate and regular rhythm GI non-distended Palpation: soft and tender epigastric, LLQ, RLQ, LUQ, RUQ, periumbilical and suprapubic; Negative for guarding or rebound tenderness present Neuro CN's II-XII intact bilaterally, moves all extremities and no sensory deficits noted Sensorium / Orientation: alert and oriented to person Psych mental status grossly normal MDM MDM MDM Narrative Medical decision making narrative: Patient was given IV fluids, Reglan, and Benadryl. Patient states her nausea improved but is now starting to return. Patient was given a dose of morphine and Phenergan. EKG was obtained. On my interpretation, it showed a normal sinus rhythm with a rate of 89. TX interval, QRS interval, and QTc intervals were all normal. There is left axis deviation. There is left ventricular hypertrophy with strain pattern. This was unchanged compared to previous EKGs. CBC was essentially within normal limits. Comprehensive metabolic profile was normal. High-sensitivity troponin was normal. Urinalysis does not show any evidence of urinary tract infection. Repeat high-sensitivity troponin was normal and unchanged. CT scan of the brain was obtained. There is no acute intracranial abnormality. CT scan of the abdomen and pelvis was obtained. There is a 4.5 x 0.5 triangular area of ill- defined decreased attenuation in the right lobe of the liver concerning for hepatocellular carcinoma or metastatic disease. I discussed the results with the patient. Patient states that she was told she had a liver mass in the past. Patient states she saw a licensed journeyman electrician for this who told her she had fatty liver disease. Patient was instructed to follow-up with her primary care physician for further evaluation of this. Patient was advised she may need to see a different licensed journeyman electrician or manager of it. Patient was instructed to continue her Zofran and Reglan as needed at home. Patient was instructed to start with frequent small sips of fluids and advance her diet as tolerated. Patient understands and is agreeable with the plan. All questions were answered. Lab Data Attestation: I reviewed the patient's lab results. Labs: Laboratory Results - last 24 hr 09/18/20 09/18/20 09/18/20 07:24 07:24 07:24 WBC 4.9 RBC 4.00 L Hgb 11.7 L Hct 35.8 L MCV 89.5 MCH 29.3 MCHC 32.7 RDW Std Deviation 51.7 H RDW Coeff of Jan 16.0 H Plt Count 145 L MPV 12.7 H Immature Gran % (Auto) 2.100 H Neut % (Auto) 60.3 Lymph % (Auto) 25.5 [place] % (Auto) 6.2 Eos % (Auto) 5.3 H Baso % (Auto) 0.6 Absolute Neuts (auto) 2.9 Absolute Lymphs (auto) 1.24 Nucleated RBC % 0 Sodium 138 Potassium 3.8 Chloride 100 Carbon Dioxide 31.0 Anion Gap 7 BUN 23 H Creatinine 1.42 H Estim Creat Clear Calc 39.95 Est GFR (MDRD) Af Amer 48 L Est GFR (MDRD) Non-Af 40 L BUN/Creatinine Ratio 16.2 Glucose 339 H Calcium 9.7 Total Bilirubin 0.50 AST 52 H ALT 57 H Alkaline Phosphatase 206 H Troponin I High Sens 16.9 Total Protein 7.1 Albumin 3.0 L Globulin 4.1 Albumin/Globulin Ratio 0.7 L Lipase 153 Urine Color Urine Clarity Urine pH Ur Specific [place] Urine Protein Urine Glucose (UA) Urine Ketones Urine Occult Blood Urine Nitrite Urine Bilirubin Urine Urobilinogen Ur Leukocyte Esterase Urine RBC Urine WBC Ur Squamous Epith Cells Urine Bacteria Urine Mucus 09/18/20 09/18/20 08:52 09:25 WBC RBC Hgb Hct MCV MCH MCHC RDW Std Deviation RDW Coeff of Jan Plt Count MPV Immature Gran % (Auto) Neut % (Auto) Lymph % (Auto) [place] % (Auto) Eos % (Auto) Baso % (Auto) Absolute Neuts (auto) Absolute Lymphs (auto) Nucleated RBC % Sodium Potassium Chloride Carbon Dioxide Anion Gap BUN Creatinine Estim Creat Clear Calc Est GFR (MDRD) Af Amer Est GFR (MDRD) Non-Af BUN/Creatinine Ratio Glucose Calcium Total Bilirubin AST ALT Alkaline Phosphatase Troponin I High Sens 15.6 Total Protein Albumin Globulin Albumin/Globulin Ratio Lipase Urine Color Yellow Urine Clarity Clear Urine pH 6.5 Ur Specific [place] 1.010 Urine Protein 30 H Urine Glucose (UA) 1000 H Urine Ketones 15 H Urine Occult Blood 50 H Urine Nitrite Negative Urine Bilirubin Negative Urine Urobilinogen Normal Ur Leukocyte Esterase 100 H Urine RBC 0-5 SEEN Urine WBC 0-5 SEEN Ur Squamous Epith Cells 0 SEEN Urine Bacteria 0 SEEN Urine Mucus 0 SEEN Radiography Diagnostic Testing: Radiology Impression Brain CT 09/18/20 07:54 IMPRESSION: Normal unenhanced CT scan of the brain. Electronically Signed: Houston Ann MD at 10:50 EDT Tel , Service support , Abdomen/Pelvis CT 09/18/20 10:25 IMPRESSION: 1. 4.5 x 0.5 cm triangular area of ill-defined decreased attenuation of the anterior segment the right lobe of liver worrisome for hepatocellular carcinoma or metastatic disease. Correlation with liver protocol MRI may be useful. PET/CT may be useful. 2. Status post colectomy with a left lower quadrant ileostomy with herniation of fat and another loop of small bowel through the defect but no bowel obstruction. Electronically Signed: Houston Ann MD at 11:17 EDT Tel , Service support , EKG Initial EKG: Attestation: I personally reviewed and interpreted this EKG as follows: Interpretation: Sinus Rhythm (89) Comments: Left axis deviation, left ventricular hypertrophy with strain pattern. Prior EKG tracings: available for review Prior: Unchanged (03/15/2020) Discharge Plan Triage Chief Complaint: Nausea/Vomiting ED Provider: Shiva Chapa Dx/Rx/DC Orders Clinical Impression: Nausea & vomiting Instructions: ED Diet for Vomiting or ..., ED Vomiting (Adult) Prescriptions: No Action buprenorphine 15 mcg/hour patch weekly 1 patch TD SA RF: 0 metoclopramide HCl [Reglan] 5 mg tablet 5 mg PO DAILY PRN PRN (Reason: Nausea) RF: 0 colestipol 1 gram tablet 1 gm PO BID RF: 0 hydrochlorothiazide 25 mg tablet 25 mg PO DAILY Qty: 90 RF: 3 pantoprazole 40 mg tablet,delayed release (DR/EC) 40 mg PO DAILY Qty: 90 RF: 3 (DME) Wheel Chair See Rx Instructions .Route .MEDSUPPLY Qty: 1 RF: 0 albuterol sulfate 2.5 mg /3 mL (0.083 %) solution for nebulization 2.5 mg INHALATION Q4H PRN (Reason: Sob &/Or Wheezing) Qty: 180 RF: 3 venlafaxine 75 mg tablet 75 mg PO DAILY RF: 0 nystatin 100,000 unit/mL suspension 5 ml PO Q6H 10 Days Qty: 200 RF: 1 pregabalin 75 mg capsule 75 mg PO BID Qty: 60 RF: 1 aspirin 81 MG tablet 81 mg PO DAILY RF: 0 baclofen 10 MG tablet 10 mg PO QHS RF: 0 insulin glargine 100 UNIT/ML insulin pen 100 unit SC QHS RF: 0 folic acid 1 MG tablet 1 mg PO DAILY RF: 0 cholecalciferol (vitamin D3) 2,000 UNIT capsule 2,000 unit PO DAILY RF: 0 acetaminophen 325 MG tablet 650 mg PO Q6H PRN PRN (Reason: Pain Score 1-10/Temp > 100.7 F) RF: 0 atorvastatin 80 mg tablet 80 mg PO QHS Qty: 90 RF: 3 isosorbide dinitrate 30 mg tablet 30 mg PO BID Qty: 180 RF: 3 (DME) FreeStyle Allison 14 Day Sensor Kit See Rx Instructions .ROUTE .MEDSUPPLY Qty: 2 RF: 6 calcium acetate(phosphat bind) 667 mg tablet 667 mg PO BID Qty: 180 RF: 2 clopidogrel 75 mg tablet See Rx Instructions .ROUTE .COMPLEX Qty: 90 RF: 3 trazodone 50 mg tablet See Rx Instructions .ROUTE .COMPLEX Qty: 90 RF: 3 metoprolol tartrate 25 mg tablet 25 mg PO BID Qty: 180 RF: 3 metoprolol tartrate 50 mg tablet 50 mg PO BID Qty: 180 RF: 3 dicyclomine 20 mg tablet 20 mg PO QHS Qty: 90 RF: 1 budesonide-formoterol [Symbicort] 160-4.5 mcg/actuation HFA aerosol inhaler 2 puff INHALATION BID Qty: 1 RF: 3 insulin lispro 200 unit/mL (3 mL) insulin pen 60 unit SC TIDCM MDD 240 Qty: 36 RF: 5 Primary Care Provider: Mala Mcgrath Referrals: Mala Mcgrath MD [Primary Care Provider] - 3-5 Days Disposition Disposition: Home, Self Care Discharge Date/Time: 09/18/20 12:39
[2020-09-18 08:04] LABS: Absolute Lymphocyte Count 1.24 X10^3/uL (0.83-4.51); Absolute Neutrophil Count 2.9 X10^3/uL (2.0-7.7); Basophil# 0.03 X10^3/uL; Basophil% 0.6 % (0-1); Eosinophil# 0.26 X10^3/uL; Eosinophils% 5.3 % (0-5); Hematocrit 35.8 % (37-47); Hemoglobin 11.7 g/dL (12.0-15.0); Lymphocyte # 1.24 X10^3/ul (0.83-4.51); Lymphocyte % 25.5 % (19-41); Mean Corp Hgb Conc 32.7 g/dL (32-36); Mean Corpuscular Hgb 29.3 pg (27.0-32.0); Mean Corpuscular Volume 89.5 fL (81-99); Mean Platelet Vol. 12.7 fl (6.2-12.0); Monocyte% 6.2 % (0-10); NRBC Flagged by Analyzer 0 % (0-5); Neutrophil # 2.94 X10^3/uL (2.7-7.7); Neutrophil % 60.3 % (47-70); Platelet Count 145 K/mm3 (150-450); RBC Distribution Width SD 51.7 fl (35.1-43.9); White Blood Count 4.9 K/mm3 (4.4-11.0)
[2020-09-18] MEDS: 0.9% Normal Saline 1,000 ML 1000 ML IV (08:04)
[2020-09-18] MEDS: DiphenhydrAMINE 50 MG/ML Syringe 25 MG IV (08:05)
[2020-09-18] MEDS: Metoclopramide 10 MG/2 ML Vial IV (08:05)
--- NOTE | 2020-09-18 08:05 | EKG12_ITS ---
Test Reason : SOB,[place] Blood Pressure : / mmHG Vent. Rate : 089 BPM Atrial Rate : 089 BPM P-R Int : 168 ms QRS Dur : 090 ms QT Int : 368 ms P-R-T Axes : 043 -32 149 degrees QTc Int : 447 ms Normal sinus rhythm Left axis deviation Left ventricular hypertrophy with repolarization abnormality Abnormal ECG Confirmed by IWONA DOMINGUEZ, STEVE ([id number]), editor in chief newspaper ISABELLA BUTLER ([id number]) on 09/20/2020 9:21:58 AM Referred By: TRI Confirmed By:EDNA BUSTILLO MD
--- NOTE | 2020-09-18 08:12 | ED.RN ---
RN MEDICATING PT FOR NAUSEA. RN EXPLAINED TO PT TO INFORM RN WHEN READY TO DRINK CT CONTRAST. PT STATES I AM NOT GOING TO BE ABLE TO DO THAT.
[2020-09-18 08:22] LABS: ALB/GLOB Ratio 0.7 RATIO (0.9-2.4); AST(SGOT) 52 U/L (15-37); Alanine Aminotransfer ALT/SGPT 57 U/L (13-56); Alkaline Phosphatase 206 U/L (45-117); Anion Gap 7 (5-15); BUN 23 mg/dL (7-18); BUN/Creat Ratio 16.2 RATIO (10-20); Calcium,Total 9.7 mg/dL (8.5-10.1); Chloride 100 mmol/L (98-107); Creatinine, Serum 1.42 mg/dL (0.55-1.02); EST Glomerular Filtration Rate 40 mL/min (>60); Est Glom Filt Rate - Afr Amer 48 mL/min (>60); Estimated Creatinine Clearance 39.95 ml/min; Globulin 4.1 g/dL (2.2-4.2); Glucose 339 mg/dL (74-106); Lipase 153 U/L (73-393); Potassium 3.8 mmol/L (3.5-5.1); Protein, Total 7.1 g/dL (6.4-8.2); Sodium Level 138 mmol/L (136-145)
[2020-09-18 08:30] LABS: Troponin-I HS 16.9 pg/mL (3.0-53.7)
--- NOTE | 2020-09-18 08:35 | ED.RN ---
PT HAS STARTED DRINKING CT ORAL CONTRAST. RADIOLOGY NOTIFIED AT THIS TIME.
[2020-09-18 08:59] LABS: Bacteria 0 SEEN /hpf (None Seen); Color, Urine Yellow (Yellow); Glucose, Dipstick 1000 mg/dl (Normal); Ketone-Dipstick 15 mg/dl (Negative); Leukocyte Esterase-Dipstick 100 /ul (Negative); Mucous, Urine 0 SEEN /hpf (<or=2+); Nitrite-Dipstick Negative (Negative); Occult Blood-Urine 50 /ul (Negative); Protein-Dipstick 30 mg/dl (Negative); Squamous Epithelial Cells - UA 0 SEEN /hpf (5-10); Urine Bilirubin Dipstick Negative (Negative); Urine Clarity Clear (Clear); Urine Urobilinogen Normal (Normal); Urine pH 6.5 (5.0 - 8.0)
[2020-09-18 09:14] LABS: Red Blood Cells-Urine 0-5 SEEN /hpf (0-5); White Blood Cells 0-5 SEEN /hpf (0-5)
--- NOTE | 2020-09-18 10:25 | CT_ITS ---
STUDY: CT ABDOMEN AND PELVIS WITH CONTRAST REASON FOR EXAM: Female, 60 years old. Nausea and vomiting -- IV PO Contrast RADIATION DOSAGE (If Supplied By Facility): CTDIvol = ( 18.51 ) mGy, DLP = ( 2381.20 ) mGycm TECHNIQUE: Transaxial images were obtained from the dome of the diaphragm to the symphysis pubis without oral contrast. Oral and amp; IV Gastrografin and amp; 100mL Isovue-300 was administered. Sagittal and coronal images were reconstructed. Individualized dose optimization techniques were used for this CT. COMPARISON: 10/10/2019 FINDINGS: The visualized lung bases are unremarkable. The visualized portions of the heart are within normal limits. 4.5 x 8.5 cm triangular area of ill-defined decreased attenuation within the anterior segment the right lobe of the liver worrisome for tumor namely hepatocellular carcinoma. Correlation with liver protocol MRI may be useful. There is non-visualization of the gallbladder, which may be secondary to either contraction or a prior cholecystectomy. Normal spleen. Normal pancreas. Normal bilateral adrenal glands. 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 Normal left kidney. Normal visualized stomach. Normal small intestine. 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 Herniation of some fat and another loop of small bowel through the ileostomy site. No bowel dilatation to suggest bowel obstruction. X-ray There is diffuse atherosclerotic calcification of the abdominal aorta, without a demonstrated aneurysm. Normal inferior vena cava. Normal retroperitoneum. Normal urinary bladder. Normal abdominal wall. Normal osseous structures. CT/Abdomen/Pelvis WITH Contrast IMPRESSION: 1. 4.5 x 0.5 cm triangular area of ill-defined decreased attenuation of the anterior segment the right lobe of liver worrisome for hepatocellular carcinoma or metastatic disease. Correlation with liver protocol MRI may be useful. PET/CT may be useful. 2. Status post colectomy with a left lower quadrant ileostomy with herniation of fat and another loop of small bowel through the defect but no bowel obstruction. Electronically Signed: Houston Ann MD at 11:17 EDT Tel , Service support ,
[2020-09-18 10:29] LABS: Troponin-I HS 15.6 pg/mL (3.0-53.7)
[2020-09-18 10:37] VITALS: PULSE 97; RESP 19; O2SAT 97
[2020-09-18 12:00] VITALS: BP 234/119; PULSE 100; RESP 19; O2SAT 96
--- NOTE | 2020-09-18 12:02 | ED.RN ---
notified pt in need of pain medication and blood pressure elevated
[2020-09-18] MEDS: Morphine 4 MG/ML Syringe IV (12:35)
[2020-09-18] MEDS: proMETHazine 25 MG/ML Syringe 6.25 MG IM (12:35)
[2020-09-18 12:38] VITALS: BP 189/102; PULSE 86; RESP 17; O2SAT 96
== END 2020-09-18 12:39 | disposition home or self-care (01) ==
PROVIDERS: Emergency Provider Emergency Medicine; PCP Internal Medicine
DX: R11.2 Nausea with vomiting, unspecified (principal); E66.9 Obesity, unspecified; E11.22 Type 2 diabetes mellitus with diabetic chronic kidney disease; E11.43 Type 2 diabetes mellitus with diabetic autonomic (poly)neuropathy; I13.0 Hypertensive heart and chronic kidney disease with heart failure and stage 1 through stage 4 chronic kidney disease, or unspecified chronic kidney disease; I50.32 Chronic diastolic (congestive) heart failure; N18.30 Chronic kidney disease, stage 3 unspecified; I25.10 Atherosclerotic heart disease of native coronary artery without angina pectoris; J44.9 Chronic obstructive pulmonary disease, unspecified; Z79.4 Long term (current) use of insulin; Z79.82 Long term (current) use of aspirin; Z79.899 Other long term (current) drug therapy; Z87.891 Personal history of nicotine dependence; Z93.2 Ileostomy status
CPT/HCPCS: 70450; 74177; 80053; 81001; 83690; 84484; 85025; 93005; 96361; 96374; 96375; 99285; J7030; Q9967; A4216

== ENCOUNTER → 2020-10-28 10:45 | Outpatient (CLI) | payer MEDICARE, MEDICAID, SELFPAY ==
[2019-06-22 12:51] VITALS: BMI 30.9
[2020-09-26 10:44] VITALS: BMI 33.5
--- NOTE | 2020-10-28 10:49 | MRI_ITS ---
ACR Level 3 findings have been noted. An addendum which confirms receipt of the report will follow. STUDY: MRI ABDOMEN WITH AND WITHOUT CONTRAST REASON FOR EXAM: Female, 60 years old. liver mass, f/u CT TECHNIQUE: Standardized fat and water weighted pulse sequences were obtained in all 3 orthogonal planes post contrast administration. IV dotarem 20ml was administered for the contrast portion of the examination. COMPARISON: CT 09/18/2020. FINDINGS: The visualized lung bases are unremarkable. The visualized portions of the heart are within normal limits. There are multiple heterogeneously T2 hyperintense/T1 hypointense lesions throughout the liver. Many of these demonstrate loss of signal on out of phase images compared to in phase images, mostly along the periphery of the lesions consistent with microscopic fat. These lesions demonstrate arterial hyperenhancement with heterogeneous washout. The largest of these measures approximately 8.2 x 9.7 x 4 cm and is in the anterior segment of the right lobe. There are surgical clips in the gallbladder fossa consistent with a prior cholecystectomy. Normal spleen. Normal pancreas. Normal bilateral adrenal glands. Normal right kidney. Normal left kidney. Normal visualized stomach. Normal small intestine. Normal visualized colon. Normal abdominal aorta. Normal inferior vena cava. Normal retroperitoneum. Normal abdominal wall. Normal osseous structures. MRI/MRI Abd WITH and W/O Contrast IMPRESSION: Multiple heterogeneously enhancing lesions throughout the liver containing some microscopic fat and washout. The largest of these measures approximately 10 cm and is in the anterior segment of the right lobe. Differential includes multifocal HCC, fat-containing metastases (albeit rare) and liposarcoma. Recommend biopsy. Electronically Signed: Tha Olivares MD at 17:16 EDT Tel , Service support ,
== END ==
PROVIDERS: PCP Internal Medicine; Referring Provider Physician Assistant; Visit Provider Physician Assistant
DX: R16.0 Hepatomegaly, not elsewhere classified (principal)
CPT/HCPCS: 74183; A9575; A4216

== ENCOUNTER → 2020-11-19 11:29 | Outpatient (CLI) | payer MEDICARE, MEDICAID, SELFPAY ==
[2019-06-22 12:51] VITALS: BMI 30.9
[2020-11-19 12:48] LABS: Ferritin 216 ng/mL (8-252); Iron 84 ug/dL (50-170); LDH 181 U/L (84-246)
[2020-11-20 14:46] LABS: AFP, Tumor Marker 1.7 ng/mL (0.0-8.3); Cancer Antigen 125 2303 11.6 U/mL (0.0-38.1); Carbohydrate Ag 19-9 2261 24 U/mL (0-35); Carcinoembryonic Antigen 1.6 ng/mL (0.0-4.7)
== END ==
PROVIDERS: PCP Internal Medicine; Referring Provider Internal Medicine Gastroenterology; Visit Provider Internal Medicine Gastroenterology
DX: K74.60 Unspecified cirrhosis of liver (principal); E11.65 Type 2 diabetes mellitus with hyperglycemia; R16.0 Hepatomegaly, not elsewhere classified; Z79.4 Long term (current) use of insulin
CPT/HCPCS: 36415; 82105; 82140; 82378; 82728; 83540; 83615; 86301; 86304

== ENCOUNTER → 2020-11-28 12:35 | Outpatient (CLI) | payer MEDICARE, MEDICAID, SELFPAY ==
[2020-11-27 10:47] VITALS: BMI 30.9
--- NOTE | 2020-11-28 12:38 | RAD_ITS ---
STUDY: XR Hip Unilateral with Pelvis when performed; 2-3 Views 11/28/2020 12:50 PM REASON FOR EXAM: Female, 60 years old. PAIN TECHNIQUE: XR Hip Unilateral with Pelvis when performed; 2-3 Views COMPARISON: None. FINDINGS: There is a non-specific bowel gas pattern. Normal visualized soft tissue structures. There are atherosclerotic vascular calcifications. Normal bilateral iliac wings, sacroiliac joints and visualized sacrum. Normal visualized bilateral superior and inferior pubic rami. Normal pubic symphysis. Normal ischial tuberosities. Normal visualized right femoral head. There is osteoarthritic spur formation of the right acetabular rim. There is mild articular joint space narrowing of the right hip. Normal visualized left femoral head. There is osteoarthritic spur formation of the left acetabular rim. There is mild articular joint space narrowing of the left hip. RAD/HIP, UNI W/ Pelvis 2-3 Views IMPRESSION: Degenerative findings of the hips. Electronically Signed: Cesar Bear MD at 13:08 EDT , Service support ,
--- NOTE | 2020-11-28 12:38 | RAD_ITS ---
STUDY: X-RAY - LUMBAR SPINE REASON FOR EXAM: Female, 60 years old. LOW BACK PAIN low back pain TECHNIQUE: XR Spine Lumbar 2 or 3 Views COMPARISON: None FINDINGS: There is straightening of the normal lumbar lordosis. There is no substantial scoliosis. There is a normal alignment of the vertebrae. There is multilevel endplate spondylosis of the lumbar vertebrae. Normal disc space heights. ] Breast The soft tissue structures are unremarkable. RAD/Lumbar Spine 2 or 3 Views IMPRESSION: There is multilevel endplate spondylosis of the lumbar vertebrae. There is mild straightening of the normal lumbar lordosis. This can suggest back strain. Electronically Signed: Cesar Bear MD at 13:08 EDT , Service support ,
== END ==
PROVIDERS: PCP Internal Medicine; Referring Provider Physician Assistant; Visit Provider Physician Assistant
DX: M54.9 Dorsalgia, unspecified (principal); M25.552 Pain in left hip; R29.898 Other symptoms and signs involving the musculoskeletal system
CPT/HCPCS: 72100; 73502

== ENCOUNTER → 2020-12-19 08:38 | Outpatient (CLI) | payer MEDICARE, MEDICAID, SELFPAY ==
[2020-11-27 10:47] VITALS: BMI 30.9
[2020-12-19] VITALS (11 sets, daily range): BP systolic 131–183; BP diastolic 59–116; PULSE 65–85; RESP 10–23; TEMP 37.2; O2SAT 99–100; BMI 31.3
[2020-12-19 08:58] LABS: Platelet Count 209 K/mm3 (150-450)
--- NOTE | 2020-12-19 08:59 | CT_ITS ---
PROCEDURE: CT DIRECTED CORE LIVER BIOPSY INDICATION: Female, 60 years old. Liver Mass PHYSICIAN: Dr. YANET Martinez CONSENT: Written informed consent was obtained having explained the risks, benefits and alternatives in detail with the patient who accepted the risks and agreed to proceed. Laboratory review and clinical assessment was performed. CONSCIOUS SEDATION PROTOCOL: The Drugs used were: 2 mg Versed, IV., and 50 mcg Fentanyl, IV. The sedation time was: 20 minutes. Conscious sedation was started at 10:27 AM and submitted at 1047. The conscious sedation protocol was independently monitored. RADIATION DOSAGE (If Supplied By Facility): CTDIvol = ( 20 ) mGy, DLP = ( 553.37 ) mGycm Individualized dose optimization techniques were used for this CT. TECHNIQUE: Using CT image guidance with image documentation, a suitable location in the right lobe of the liver was identified. Using an anterior approach, puncture of the liver was uneventful with an 18-gauge core needle system. 5, 18-gauge core samples were obtained, and submitted in formalin to the pathologist for further assessment. Followup CT scan revealed no distinct sequelae. CT/Biopsy/Inj or Needle Placement IMPRESSION: 1. CT directed core needle biopsy of the liver, using CT image guidance with image documentation as described. 2. Conscious Sedation protocol utilized with independent monitoring. Electronically Signed: Eric Spencer MD at 12:25 EDT , Service support ,
[2020-12-19 09:08] LABS: International Normalized Ratio 1.1; Prothrombin Time (Protime)PT. 13.3 SECONDS (11.7-14.9)
[2020-12-19 09:09] LABS: Partial Thromboplast Time 29.6 Seconds (24.1-36.2)
[2020-12-19] MEDS: Midazolam 2 MG/2 ML Syringe IV (10:27)
[2020-12-19] MEDS: fentaNYL 100 MCG/2 ML Ampul IV (10:29)
[2020-12-19] MEDS: Lidocaine 2% (20 ml mdv) 20 ML Vial INFILT (10:41)
--- NOTE | 2020-12-19 10:45 | ASPIGT_PTH ---
PATIENT: ASHLEY MÉNDEZ LOC: CT U#:[id number] AGE/SX: 64/F ROOM: RE12/19/[address]: Dr. Aj Andino DO : 1960 BED: DIS: SPEC #: [id number] RECD: 12/19/20 11:47 STATUS: ISAAC REQ #: [id number] BLAKE: 12/19/20 10:[address]: Aj Andino DEPT: SURGICAL PATHOLOGY RECD BY: Bailee Rodas ENTERED: 12/19/20 11:48 SP TYPE: ASP RAD OTHR DR: Dr. Mala Mcgrath MD Tissues: Liver, NOS Procedures: FNA Specimen Adequacy Special Stain Group II Surgery Specimen Level V Imprint (control) HEADER OPERATION: CT-guided liver biopsy PRE-OP DIAGNOSIS: Liver mass TISSUE SUBMITTED: Liver 18-gauge core x4 MICROSCOPIC DIAGNOSIS Liver, CT-guided core biopsy: Steatohepatitis with marked macrovesicular steatosis, some hepatocyte ballooning degeneration, scattered lobular necroinflammation (grade 1-2/3) and perisinusoidal/pericellular fibrosis with focal periportal and bridging fibrosis. (Stage 2-3/4) (Brunt grading and staging system). A fibrotic fragment of hepatic tissue (approximately 6 mm) is also identified. See microscopic description and comment. SJ:rg 12/27/2020 COMMENT The specimen is evaluated at the time of biopsy by Dr. Whelan. Immediate Evaluation = Negative for malignant cells. The specimen is sent to [facility] for expert opinion, reviewed by Dr. Brian and the above diagnosis is rendered. The complete report is viewable in the patient's EMR. Please make reference to previous specimen ([id number]) liver mass, CT-guided core biopsy with diagnosis of liver parenchymal tissue with extensive macrovesicular and microvesicular steatosis and changes consistent with early incipient cirrhosis. Special stains performed here and additional immunohistochemical stains performed at [facility] supports the above diagnosis. Case has been reviewed in consultation with Dr. Bob who concurs with the above diagnosis. IDC:AM MICROSCOPIC DESCRIPTION Slides are reviewed. The hepatocytes show marked macrovesicular steatosis with some hepatocytes ballooning changes. Some Grace bodies are identified in the hepatocytes (stained by CK8/18). There is scattered lobular necroinflammation composed of lymphocytes and neutrophils. Moderately to marked glycogenated nuclei are identified. The portal tracts show mile inflammatory cell infiltration mainly composed of lymphocytes and neutrophils. The Prussian blue stain for iron deposition is negative. The PAS with diastase stain for [id number] globules is negative. The reticulum stain shows one-cell thick cords and plates. The trichrome stain shows perisinusoidal/pericellular fibrosis, and focal periportal and bridging fibrosis. A fibrotic fragment of hepatic tissue (approximately 6 mm) is also identified. GROSS DESCRIPTION Received in fixative is one container labeled with the patient's name and designated liver mass biopsy. The specimen consists of multiple elongated fragments of rich soft tissue that in aggregate measure 1.5 x 0.2 x 0.1 cm. The specimen is totally submitted in one cassette. Three touch imprints are prepared at the time of core biopsy. / SORIN:katie 12/19/20 TC:5 CPT: 90192, 42959
== END | disposition home or self-care (01) ==
LOC: US 08:42 → CT 10:07
PROVIDERS: PCP Internal Medicine; Referring Provider Internal Medicine Gastroenterology; Visit Provider Internal Medicine Gastroenterology
DX: R16.0 Hepatomegaly, not elsewhere classified (principal); N18.30 Chronic kidney disease, stage 3 unspecified; K74.60 Unspecified cirrhosis of liver
CPT/HCPCS: 47000; 36415; 77012; 85049; 85610; 85730; 88172; 88305; 88307; 88313; 99156; J7040; A4216

== ENCOUNTER → 2020-12-31 11:11 | Outpatient (CLI) | payer MEDICARE, MEDICAID, SELFPAY ==
[2020-11-27 10:47] VITALS: BMI 30.9
[2020-12-31 12:59] LABS: Protein, Urine (Random) 55.5 mg/dL (<11.9); Protein:Creat Ratio 365 mg/g CRE (0-200)
[2020-12-31 13:28] LABS: Anion Gap 11 (5-15); BUN 41 mg/dL (7-18); BUN/Creat Ratio 20.7 RATIO (10-20); Calcium,Total 9.5 mg/dL (8.5-10.1); Chloride 102 mmol/L (98-107); Creatinine, Serum 1.98 mg/dL (0.55-1.02); EST Glomerular Filtration Rate 27 mL/min (>60); Est Glom Filt Rate - Afr Amer 33 mL/min (>60); Glucose 135 mg/dL (74-106); Potassium 3.1 mmol/L (3.5-5.1); Sodium Level 139 mmol/L (136-145)
== END ==
PROVIDERS: PCP Internal Medicine; Referring Provider Internal Medicine Nephrology; Visit Provider Internal Medicine Nephrology
DX: N18.32 Chronic kidney disease, stage 3b (principal)
CPT/HCPCS: 36415; 80048; 82570; 84156

== ENCOUNTER → 2021-01-07 13:24 | Outpatient (CLI) | payer MEDICARE, MEDICAID, SELFPAY ==
[2020-11-27 10:47] VITALS: BMI 30.9
== END ==
PROVIDERS: PCP Internal Medicine; Referring Provider Physician Assistant Surgical; Visit Provider Physician Assistant Surgical
DX: Z11.52 Encounter for screening for COVID-19 (principal)
CPT/HCPCS: 87635; U0005; U0003

== ENCOUNTER 2021-01-07 18:32 | Observation (INO) | payer MEDICARE, MEDICAID, SELFPAY ==
[2020-11-27 10:47] VITALS: BMI 30.9
[2021-01-07 18:33] VITALS: BP 129/80; PULSE 71; RESP 12; TEMP 36.9; O2SAT 93; BMI 31.1
[2021-01-07 18:40] VITALS: BP 129/80; PULSE 71; RESP 12; TEMP 36.9; O2SAT 93
--- NOTE | 2021-01-07 19:08 | EKG12_ITS ---
Test Reason : CP Blood Pressure : / mmHG Vent. Rate : 062 BPM Atrial Rate : 062 BPM P-R Int : 172 ms QRS Dur : 102 ms QT Int : 444 ms P-R-T Axes : 009 -26 149 degrees QTc Int : 450 ms Normal sinus rhythm Left ventricular hypertrophy ST/T wave abnormality: Consider repolarization vs myocardial ischemia vs metabolic effect vs medicati on effect Abnormal ECG Confirmed by COURTNEY DOMINGUEZ, NIXON ([id number]), advertising editor ISABELLA BUTLER ([id number]) on 01/09/2021 8:54:34 AM Referred By: JOSEPH Confirmed By:NIXON VALDEZ MD
--- NOTE | 2021-01-07 19:11 | EX.ED.DYSGE1 ---
HPI History of Present Illness Chief Complaint: Chest Pain Informant: patient and spouse/S.O. Onset/Context/Timing Onset: Yesterday Context: Gradual Onset Current Severity: Moderate Maximum Severity: Moderate Narrative Narrative: Patient presents via EMS secondary to confusion and chest pressure. Patient states yesterday afternoon she started getting groggy and wanted to sleep a lot. She feels that she is confused. Today she just wanted to sleep all day. Her significant other called to check on her today and when she would not answer, came to the house. She had a difficult time waking her up. She was confused and making comments about people that were not around as if they were there. Earlier today she was making comments about one of their children but no longer lives with them. Patient states the only medication change is starting Ursodiol last Wednesday. She does complain of chest pressure and heaviness. She states she feels like she cannot get a deep enough breath in although knows that her oxygen level is okay. She states she was exposed to someone with Covid, but has had Covid herself and been vaccinated. Significant other does state that last evening when she first became confused her blood sugar was low at 41. Her confusion has progressed today in spite of her blood sugars being normal. [facility] Medical History Anemia of chronic renal failure, stage 3 (moderate) Arthritis Atherosclerosis of coronary artery bypass graft without angina pectoris Atherosclerotic heart disease of [place] coronary artery without angina pectoris BMI 31.0-31.9,adult Chronic diastolic (congestive) heart failure Chronic respiratory failure Chronic respiratory failure with hypoxia, on home O2 therapy Cirrhosis CKD (chronic kidney disease) stage 3, GFR 30-59 ml/min COPD (chronic obstructive pulmonary disease) Coronary artery disease COVID-19 vaccine series completed Depression with anxiety Diabetic gastroparesis DM2 (diabetes mellitus, type 2) Essential (primary) hypertension FCHL (familial combined hyperlipidemia) Hyperlipidemia Hypertensive chronic kidney disease with stage 1 through stage 4 chronic kidney disease, or unspecified chronic kidney disease Increased ammonia level Liver mass Menieres disease Non-alcoholic fatty liver disease Nonalcoholic steatohepatitis Obstructive sleep apnea Pancreatitis Psoriasis Right thyroid nodule Secondary pulmonary arterial hypertension 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 2 diabetes mellitus Thyroid mass Type 2 diabetes mellitus with diabetic polyneuropathy Ulcerative colitis Home Medications buprenorphine 15 mcg/hour weekly transdermal patch 1 patch TD SA 04/08/20 [History Last Taken 02/10/20] metoclopramide HCl 5 mg tablet 5 mg PO DAILY PRN PRN tab 10/20/19 [History Last Taken Unknown] acetaminophen 650 mg PO Q6H PRN PRN tab 02/19/20 [Rx Last Taken Unknown] isosorbide dinitrate 30 mg tablet 30 mg PO BID #180 tab 02/27/20 [Rx Last Taken Unknown] albuterol sulfate 2.5 mg INHALATION Q4H PRN #180 ml 03/28/20 [Rx Last Taken Unknown] Wheel Chair #1 ea 04/17/20 [Rx Last Taken Unknown] trazodone 50 mg tablet See Rx Instructions .ROUTE .COMPLEX #90 tablet 05/27/20 [Rx Last Taken Unknown] hydrochlorothiazide 25 mg tablet 25 mg PO DAILY #90 tablet 06/20/20 [Rx Last Taken Unknown] pantoprazole 40 mg tablet,delayed release 40 mg PO DAILY #90 tablet 06/20/20 [Rx Last Taken Unknown] ondansetron 4 mg disintegrating tablet 4 mg PO Q8H PRN #30 tab 09/20/20 [Rx Last Taken Unknown] flash glucose sensor #2 ea 09/24/20 [Rx Last Taken Unknown] pen needle, diabetic 32 gauge x #200 ea 10/18/20 [Rx Last Taken Unknown] atorvastatin 80 mg tablet 80 mg PO QHS #90 tab 10/22/20 [Rx Last Taken Unknown] budesonide-formoterol HFA 160 mcg-4.5 mcg/actuation aerosol inhaler 2 puff INHALATION BID #1 ea 11/14/20 [Rx Last Taken Unknown] bacitracin zinc 500 unit/gram topical ointment 1 applic TOPICAL DAILY 11/19/20 [History Last Taken Unknown] betamethasone dipropionate 0.05 % topical cream 1 applic TOPICAL DAILY 11/19/20 [History Last Taken Unknown] tramadol 50 mg tablet 50 mg PO BID PRN 11/27/20 [History Last Taken Unknown] dicyclomine 20 mg PO 4X/DAY 12/19/20 [History Last Taken Unknown] pregabalin 75 mg capsule 75 mg PO BID #60 cap 12/30/20 [Rx Last Taken Unknown] ursodiol 300 mg capsule 300 mg PO BID #60 cap 12/31/20 [Rx Last Taken Unknown] vitamin E mixed 400 unit capsule 800 unit PO .QD #60 cap 12/31/20 [Rx Last Taken Unknown] furosemide 20 mg tablet 20 mg PO DAILY 01/03/21 [History Last Taken Unknown] insulin glargine 100 unit/mL (3 mL) subcutaneous pen 50 unit SUBCUT BID ml 01/03/21 [History Last Taken Unknown] insulin lispro 200 unit/mL (3 mL) subcutaneous pen 65 unit SUBCUT BID ml 01/03/21 [History Last Taken Unknown] aspirin [Aspir-Low] 81 mg PO DAILY 01/07/21 [History Last Taken Unknown] baclofen 10 mg PO BID 01/07/21 [History Last Taken Unknown] clopidogrel 75 mg PO DAILY 01/07/21 [History Last Taken Unknown] insulin lispro [Humalog Pen] 60 unit SUBCUT TIDCM 01/07/21 [History Last Taken Unknown] metoprolol tartrate 75 mg PO BID 01/07/21 [History Last Taken Unknown] Allergy/AdvReac Type Severity Reaction Status Date / Time aripiprazole [From Abilify] Allergy Intermediate hallucinati Verified 01/03/21 09:42 ons ciprofloxacin Allergy Intermediate Swelling Verified 01/03/21 09:42 dicyclomine Allergy Intermediate unkown Verified 01/03/21 09:42 cinnamon [Cinnamon] Allergy Anaphylaxis Verified 01/03/21 09:42 Influenza Virus Vaccines Allergy Shortness Verified 01/03/21 09:42 of breath liraglutide [From Victoza] Allergy Anaphylaxis Verified 01/03/21 09:42 metronidazole [From Flagyl] Allergy Hives Verified 01/03/21 09:42 Metronidazole HCl Allergy Hives Verified 01/03/21 09:42 [From Flagyl] Penicillins Allergy Hives Verified 01/03/21 09:42 Sulfa (Sulfonamide Allergy Hives Verified 01/03/21 09:42 Antibiotics) codeine AdvReac Stops Verified 01/03/21 09:42 Ileostomy metformin HCl AdvReac Nausea Verified 01/03/21 09:42 [From Glucophage] ranolazine AdvReac Nausea/Vom/ Verified 01/03/21 09:42 Diarrhea Zomixbc-Kws-Iko Reductase AdvReac Nausea/joints Verified 01/03/21 09:42 Inhibitor ache Family History Mother CVA (cerebral vascular accident) Diabetes Brother Heart disease of CAD at 65 Myocardial infarction Pancreatitis Father Cancer lymphomia Lymphoma Grandmother Myocardial infarction of [place] in her 70s Sister COPD (chronic obstructive pulmonary disease) Surgical History H/O colectomy H/O coronary artery bypass surgery (05/18/12) H/O sinus surgery H/O total hysterectomy history closed fissure History of cholecystectomy History of coronary artery stent placement (01/12/18) ileostomy Ileostomy status left thumb surgery Social History Smoking Status: Former smoker alcohol intake: never substance use type: does not use caffeine: Yes Type: coffee eating out: 1-3 times/week what type of physical activity do you participate in: none seatbelt use: always do you feel safe at home: Yes ROS ROS ED Constitutional Constitutional ED: Denies chills or fever(s) Eyes Eyes: Denies blurry vision ENT ENT ED: Denies rhinorrhea or sore throat Cardiovascular Cardiovascular: Reports chest pain Respiratory/Chest Respiratory/Chest: Reports dyspnea; Denies cough Gastrointestinal Gastrointestinal: Denies abdominal pain, diarrhea, nausea or vomiting Genitourinary Genitourinary ED: Denies dysuria Integumentary Denies rash Neurologic Neurologic: Reports weakness Psychiatric Psychiatric: Denies anxiety or depression Endocrine Endocrinology: Denies polydipsia or polyuria Allergic/Immunologic Allergic/Immunologic ED: Denies urticaria EXAM Physical Exam Const Vital Signs: 01/07/21 18:33 01/07/21 18:40 01/07/21 20:04 Temperature 98.4 F 98.4 F Temperature Source Oral Oral Pulse Rate 71 71 Respiratory Rate 12 12 Respiratory Effort Normal Respiratory Pattern Normal Blood Pressure 129/80 H 129/80 H Blood Pressure Mean 96 96 Pulse Ox 93 93 Oxygen Delivery Method Room Air Room Air Positive well nourished and well developed General Appearance ED: well developed Eyes PERRL and EOMs intact bilaterally Neck supple Chest Wall inspection of chest normal and palpation of chest normal Resp normal respiratory effort and clear to auscultation bilaterally Cardio regular rate and regular rhythm GI normal to inspection, nondistended, normoactive bowel sounds and non-tender Palpation: soft Extremity normal to inspection Neuro oriented x3 Neuro Narrative: No focal neurologic deficits. Patient appears sleepy but she wakes easily and answers questions. Sensorium / Orientation: alert Skin no rashes or lesions noted MDM MDM MDM Narrative Medical decision making narrative: Patient is placed on bilingual office assistant. EKG, chest x-ray, head CT, lab work obtained. Urinalysis ordered. Covid swab ordered. Lab Data Attestation: I reviewed the patient's lab results. Labs: Laboratory Results - last 24 hr 01/07/21 01/07/21 01/07/21 19:53 19:53 19:53 WBC 7.6 RBC 4.49 Hgb 12.4 Hct 38.9 MCV 86.6 MCH 27.6 MCHC 31.9 L RDW Std Deviation 45.2 H RDW Coeff of Jan 14.4 Plt Count 147 L MPV 12.9 H Immature Gran % (Auto) 0.400 Neut % (Auto) 57.7 Lymph % (Auto) 31.9 [place] % (Auto) 6.2 Eos % (Auto) 3.1 Baso % (Auto) 0.7 Absolute Neuts (auto) 4.4 Absolute Lymphs (auto) 2.44 Nucleated RBC % 0 D-Dimer Quant (PE/DVT) Sodium 140 Potassium 3.1 L Chloride 102 Carbon Dioxide 30.0 Anion Gap 8 BUN 55 H Creatinine 2.56 H Estim Creat Clear Calc 22.16 Est GFR (MDRD) Af Amer 24 L Est GFR (MDRD) Non-Af 20 L BUN/Creatinine Ratio 21.5 H Glucose 187 H Calcium 9.6 Total Bilirubin 0.30 Direct Bilirubin 0.12 AST 26 ALT 26 Alkaline Phosphatase 199 H Ammonia 30.0 Troponin I High Sens 14 Total Protein 7.8 Albumin 3.3 Globulin 4.5 H Urine Color Urine Clarity Urine pH Ur Specific [place] Urine Protein Urine Glucose (UA) Urine Ketones Urine Occult Blood Urine Nitrite Urine Bilirubin Urine Urobilinogen Ur Leukocyte Esterase Urine RBC Urine WBC Ur Squamous Epith Cells Urine Bacteria Hyaline Casts Urine Mucus Urine Opiates Screen Urine Methadone Screen Ur Barbiturates Screen Ur Phencyclidine Scrn Ur Amphetamines Screen U Methamphetamin-MDMA U Benzodiazepines Scrn Urine Cocaine Screen U Cannabinoids Screen Ur Drug Screen Comment 01/07/21 01/07/21 01/07/21 19:53 21:15 21:15 WBC RBC Hgb Hct MCV MCH MCHC RDW Std Deviation RDW Coeff of Jan Plt Count MPV Immature Gran % (Auto) Neut % (Auto) Lymph % (Auto) [place] % (Auto) Eos % (Auto) Baso % (Auto) Absolute Neuts (auto) Absolute Lymphs (auto) Nucleated RBC % D-Dimer Quant (PE/DVT) 0.50 H Sodium Potassium Chloride Carbon Dioxide Anion Gap BUN Creatinine Estim Creat Clear Calc Est GFR (MDRD) Af Amer Est GFR (MDRD) Non-Af BUN/Creatinine Ratio Glucose Calcium Total Bilirubin Direct Bilirubin AST ALT Alkaline Phosphatase Ammonia Troponin I High Sens Total Protein Albumin Globulin Urine Color Yellow Urine Clarity Clear Urine pH 5.0 Ur Specific [place] 1.020 Urine Protein 15 H Urine Glucose (UA) Normal Urine Ketones Negative Urine Occult Blood Negative Urine Nitrite Negative Urine Bilirubin Negative Urine Urobilinogen Normal Ur Leukocyte Esterase Negative Urine RBC 0 SEEN Urine WBC 0 SEEN Ur Squamous Epith Cells 0-5 SEEN Urine Bacteria RARE Hyaline Casts 0-5 SEEN Urine Mucus 0 SEEN Urine Opiates Screen NEGATIVE Urine Methadone Screen NEGATIVE Ur Barbiturates Screen NEGATIVE Ur Phencyclidine Scrn NEGATIVE Ur Amphetamines Screen NEGATIVE U Methamphetamin-MDMA NEGATIVE U Benzodiazepines Scrn NEGATIVE Urine Cocaine Screen NEGATIVE U Cannabinoids Screen NEGATIVE Ur Drug Screen Comment Radiography Chest X-Ray - ED: 1 View, Read by ED Physician, Normal, Heart, Lungs and Mediastinum Diagnostic Testing: Clinical Impression(s) from Imaging Studies Chest X-Ray 01/07/21 20:00 IMPRESSION: No acute cardiopulmonary disease. Electronically Signed: Marcellus Kaye DO at 20:23 EDT Tel [phone], Service support , Brain CT 01/07/21 20:37 IMPRESSION: No acute intracranial or calvarial abnormality. If there is no interval change. If there is continued concern for intracranial abnormality, MRI is recommended. Electronically Signed: Marcellus Kaye DO at 20:49 EDT Tel [phone], Service support , EKG Initial EKG: Attestation: I personally reviewed and interpreted this EKG as follows: Interpretation: Sinus Rhythm (Sinus at 62. LVH changes with repull abnormality. Not significantly changed when compared to prior study of September 2020.) Treatment and Re-Evaluation Comments:: EKG reveals chronic changes with no acute ischemia. Portable chest x-ray per my interpretation unremarkable. Covid test is negative. CBC reveals normal findings other than platelet count low at 147, chronic. Chemistry studies significant for a potassium of 3.1. Creatinine is slightly bumped over baseline to 2.56. Glucose is 187. Ammonia level is 30, decreased from prior values. D-dimer is normal for age. Urinalysis shows no sign of acute infection urine tox screen is negative. Patient was given oral potassium. She was given 1 L IV fluid bolus. On repeat exam she continues to be altered. She will fall asleep with her eyes open eyes are talking to her. At this time I do have concern sending her home with this mental status. Patient has only had one new recent medication. I did question as to whether her other medications may have gotten mixed up at home and she took too much of her baclofen or pain medication. She does not believe this occurred. I will speak with hospitalist regarding observation. Discharge Plan Triage Chief Complaint: Chest Pain ED Provider: Tiffany Alexandre Dx/Rx/DC Orders Clinical Impression: Altered mental status Prescriptions: No Action buprenorphine 15 mcg/hour patch weekly 1 patch TD SA RF: 0 metoclopramide HCl [Reglan] 5 mg tablet 5 mg PO DAILY PRN PRN (Reason: Nausea) RF: 0 hydrochlorothiazide 25 mg tablet 25 mg PO DAILY Qty: 90 RF: 3 pantoprazole 40 mg tablet,delayed release (DR/EC) 40 mg PO DAILY Qty: 90 RF: 3 (DME) Wheel Chair See Rx Instructions .Route .MEDSUPPLY Qty: 1 RF: 0 albuterol sulfate 2.5 mg /3 mL (0.083 %) solution for nebulization 2.5 mg INHALATION Q4H PRN (Reason: Sob &/Or Wheezing) Qty: 180 RF: 3 (DME) pen needle, diabetic [BD Ultra-Fine Key Pen Needle] 32 gauge x 5/32 needle See Rx Instructions .ROUTE .MEDSUPPLY Qty: 200 RF: 3 ondansetron 4 mg tablet,disintegrating 4 mg PO Q8H PRN (Reason: nausea and vomiting) Qty: 30 RF: 0 bacitracin zinc 500 unit/gram ointment 1 applic topical DAILY RF: 0 betamethasone dipropionate 0.05 % cream 1 applic topical DAILY RF: 0 ursodiol 300 mg capsule 300 mg PO BID Qty: 60 RF: 3 vitamin E mixed 400 unit capsule 800 unit PO .QD Qty: 60 RF: 3 tramadol 50 mg tablet 50 mg PO BID PRN (Reason: chronic back pain) RF: 0 furosemide [Lasix] 20 mg tablet 20 mg PO DAILY RF: 0 Humalog KwikPen Insulin 200 unit/mL (3 mL) insulin pen 65 unit subcut BID RF: 0 Lantus Solostar U-100 Insulin 100 unit/mL (3 mL) insulin pen 50 unit subcut BID RF: 0 acetaminophen 325 MG tablet 650 mg PO Q6H PRN PRN (Reason: Pain Score 1-10/Temp > 100.7 F) RF: 0 dicyclomine 20 mg tablet 20 mg PO 4X/DAY RF: 0 aspirin [Aspir-Low] 81 mg Tablet,Delayed Release (Dr/Ec) 81 mg PO DAILY RF: 0 baclofen 10 mg Tablet 10 mg PO BID RF: 0 insulin lispro [Humalog Pen] 100 unit/mL Insulin Pen 60 unit subcut TIDCM RF: 0 clopidogrel 75 mg tablet 75 mg PO DAILY RF: 0 metoprolol tartrate 50 mg tablet 75 mg PO BID RF: 0 isosorbide dinitrate 30 mg tablet 30 mg PO BID Qty: 180 RF: 3 trazodone 50 mg tablet See Rx Instructions .ROUTE .COMPLEX Qty: 90 RF: 3 (DME) FreeStyle Allison 14 Day Sensor Kit See Rx Instructions .ROUTE .MEDSUPPLY Qty: 2 RF: 6 atorvastatin 80 mg tablet 80 mg PO QHS Qty: 90 RF: 3 budesonide-formoterol [Symbicort] 160-4.5 mcg/actuation HFA aerosol inhaler 2 puff INHALATION BID Qty: 1 RF: 3 pregabalin 75 mg capsule 75 mg PO BID Qty: 60 RF: 1 Primary Care Provider: Mala Mcgrath Referrals: Mala Mcgrath MD [Primary Care Provider] - Disposition Disposition: Acute Care Hospital [facility]
--- NOTE | 2021-01-07 20:00 | RAD_ITS ---
STUDY: X-RAY CHEST REASON FOR EXAM: Female, 60 years old. Chest pain. TECHNIQUE: Single AP portable view of the chest. COMPARISON: 03/18/2020 FINDINGS: The lungs are clear and expanded. There is resolution of the airspace disease seen on the prior study. There is no demonstrated pleural abnormality. Sternal cerclage wires are present from a prior sternotomy. The heart is normal in size. Normal mediastinum and marie. Normal visualized pulmonary arteries. Normal visualized aortic arch and descending thoracic aorta. The thoracic spine is obscured by the mediastinum. Normal visualized ribs, clavicles, and shoulders. There is no demonstrated abnormality of the visualized soft tissue structures of the upper abdomen. RAD/Chest 1 View (Portable) IMPRESSION: No acute cardiopulmonary disease. Electronically Signed: Marcellus Kaye DO at 20:23 EDT Tel [phone], Service support ,
[2021-01-07 20:08] LABS: Absolute Lymphocyte Count 2.44 X10^3/uL (0.83-4.51); Absolute Neutrophil Count 4.4 X10^3/uL (2.0-7.7); Basophil# 0.05 X10^3/uL; Basophil% 0.7 % (0-1); Eosinophil# 0.24 X10^3/uL; Eosinophils% 3.1 % (0-5); Hematocrit 38.9 % (37-47); Hemoglobin 12.4 g/dL (12.0-15.0); Lymphocyte # 2.44 X10^3/ul (0.83-4.51); Lymphocyte % 31.9 % (19-41); Mean Corp Hgb Conc 31.9 g/dL (32-36); Mean Corpuscular Hgb 27.6 pg (27.0-32.0); Mean Corpuscular Volume 86.6 fL (81-99); Mean Platelet Vol. 12.9 fl (6.2-12.0); Monocyte# 0.47 X10^3/uL; Monocyte% 6.2 % (0-10); NRBC Flagged by Analyzer 0 % (0-5); Neutrophil # 4.41 X10^3/uL (2.7-7.7); Neutrophil % 57.7 % (47-70); Platelet Count 147 K/mm3 (150-450); RBC Distribution Width CV 14.4 % (11.6-14.6); RBC Distribution Width SD 45.2 fl (35.1-43.9); Red Blood Count 4.49 M/mm3 (4.2-5.4); White Blood Count 7.6 K/mm3 (4.4-11.0)
[2021-01-07 20:25] LABS: AST(SGOT) 26 U/L (15-37); Alanine Aminotransfer ALT/SGPT 26 U/L (13-56); Albumin, Serum 3.3 g/dL (3.2-5.0); Alkaline Phosphatase 199 U/L (45-117); Anion Gap 8 (5-15); BUN 55 mg/dL (7-18); BUN/Creat Ratio 21.5 RATIO (10-20); Bilirubin, Direct 0.12 mg/dL (0.00-0.30); Calcium,Total 9.6 mg/dL (8.5-10.1); Chloride 102 mmol/L (98-107); Creatinine, Serum 2.56 mg/dL (0.55-1.02); EST Glomerular Filtration Rate 20 mL/min (>60); Est Glom Filt Rate - Afr Amer 24 mL/min (>60); Estimated Creatinine Clearance 22.16 ml/min; Globulin 4.5 g/dL (2.2-4.2); Glucose 187 mg/dL (74-106); Potassium 3.1 mmol/L (3.5-5.1); Protein, Total 7.8 g/dL (6.4-8.2); Sodium Level 140 mmol/L (136-145); Troponin-I HS 14 pg/mL (3.0-54.0)
--- NOTE | 2021-01-07 20:37 | CT_ITS ---
STUDY: CT BRAIN WITHOUT CONTRAST REASON FOR EXAM: Female, 60 years old. Confusion. RADIATION DOSAGE (If Supplied By Facility): CTDIvol = ( 44.99 ) mGy, DLP = ( 846.73 ) mGycm TECHNIQUE: Transaxial CT imaging of the brain was performed without administration of intravenous contrast material. Individualized dose optimization techniques were used for this CT. COMPARISON: 09/18/2020. FINDINGS: Normal soft tissue structures. Normal calvarium. Normal size ventricles and extra-axial spaces for the patient''s age. Normal white matter tracts of the cerebral hemispheres. Normal basal ganglia and thalami. Normal brainstem. Normal cerebellum. There is no intracranial hemorrhage. There are no findings of an acute ischemic infarction. Normal visualized paranasal sinuses. CT/Brain/Head without Contrast IMPRESSION: No acute intracranial or calvarial abnormality. If there is no interval change. If there is continued concern for intracranial abnormality, MRI is recommended. Electronically Signed: Marcellus Kaye DO at 20:49 EDT Tel [phone], Service support ,
[2021-01-07 21:21] LABS: Mucous, Urine 0 SEEN /hpf (<or=2+); Red Blood Cells-Urine 0 SEEN /hpf (0-5); White Blood Cells 0 SEEN /hpf (0-5)
[2021-01-07 21:23] LABS: Color, Urine Yellow (Yellow); Glucose, Dipstick Normal (Normal); Ketone-Dipstick Negative (Negative); Leukocyte Esterase-Dipstick Negative /ul (Negative); Nitrite-Dipstick Negative (Negative); Occult Blood-Urine Negative /ul (Negative); Protein-Dipstick 15 mg/dl (Negative); Urine Bilirubin Dipstick Negative (Negative); Urine Clarity Clear (Clear); Urine Urobilinogen Normal (Normal)
[2021-01-07 21:40] VITALS: BP 143/57; PULSE 62; RESP 21; TEMP 36.6; O2SAT 90
[2021-01-07] MEDS: 0.9% Normal Saline 1,000 ML 999 ML IV (21:41)
[2021-01-07] MEDS: Potassium Chloride Oral Tablet 20 MEQ 40 MEQ PO (21:43)
[2021-01-07 21:53] LABS: Amphetamine Urine VISTA NEGATIVE (<1000 ng/mL); Barbiturate Urine VISTA NEGATIVE (< 200 ng/mL); Benzodiazepine Urine VISTA NEGATIVE (< 200 ng/mL); Cocaine Urine VISTA NEGATIVE (< 300 ng/mL); Ecstacy Urine VISTA NEGATIVE (< 500 ng/mL); Methadone Urine VISTA NEGATIVE (< 300 ng/mL); PCP Urine VISTA NEGATIVE (< 25 ng/mL); THC Urine VISTA NEGATIVE (< 50 ng/mL); Vista UDS pH Range 5
[2021-01-07 21:56] LABS: Bacteria RARE /hpf (None Seen); Hyaline Cast 0-5 SEEN /lpf (0-5); Squamous Epithelial Cells - UA 0-5 SEEN /hpf (5-10)
[2021-01-07 23:01] VITALS: BP 149/82; PULSE 62; RESP 18; TEMP 36.6; O2SAT 97
[2021-01-07 23:03] VITALS: BP 149/82; PULSE 62; RESP 18; TEMP 36.6; O2SAT 92
--- NOTE | 2021-01-07 23:30 | HP.PCM.HOS_ITS ---
HPI - General General Date of Admission: 01/07/21 Date of Service: 01/07/21 Chief Complaint: confusion HPI Narrative ASHLEY MÉNDEZ, is a 60 F who presents presents with confusion. Patient is noted confusion and also having hallucinations where she is seeing a man in her house and also an alligator that bit her on her nose. Case discussed with her partner who is at bedside and said this is very unusual for her. Her partner saw her on the first and she is completely normal and lucid at that time. This is a big change for her. Patient was noted to be hypoglycemic with a blood sugar in the 40s. Patient was also having jerking motions as well which is also unusual for her. There is concern that patient may have taken too much of baclofen than she normally does. Patient normally manages her medications on her own but patient was expressing difference the baclofen dose that she takes and what what her partner thinks that she does take. Patient has never had confusion like this before nor has she hallucinated before. The patient's partner notes that the patient's cat will bite the patient on her nose when her blood sugar gets low and thinks that that may be the reason for the alligator hallucination. [facility] Medical History Anemia of chronic renal failure, stage 3 (moderate) Arthritis Atherosclerosis of coronary artery bypass graft without angina pectoris Atherosclerotic heart disease of [place] coronary artery without angina pectoris BMI 31.0-31.9,adult Chronic diastolic (congestive) heart failure Chronic respiratory failure Chronic respiratory failure with hypoxia, on home O2 therapy Cirrhosis CKD (chronic kidney disease) stage 3, GFR 30-59 ml/min COPD (chronic obstructive pulmonary disease) Coronary artery disease COVID-19 vaccine series completed Depression with anxiety Diabetic gastroparesis DM2 (diabetes mellitus, type 2) Essential (primary) hypertension FCHL (familial combined hyperlipidemia) Hyperlipidemia Hypertensive chronic kidney disease with stage 1 through stage 4 chronic kidney disease, or unspecified chronic kidney disease Increased ammonia level Liver mass [place] disease Non-alcoholic fatty liver disease Nonalcoholic steatohepatitis Obstructive sleep apnea Pancreatitis Psoriasis Right thyroid nodule Secondary pulmonary arterial hypertension 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 2 diabetes mellitus Thyroid mass Type 2 diabetes mellitus with diabetic polyneuropathy Ulcerative colitis Home Medications buprenorphine 15 mcg/hour weekly transdermal patch 1 patch TD SA 06/14/19 [History Last Taken 02/10/20] metoclopramide HCl 5 mg tablet 5 mg PO DAILY PRN PRN tab 10/20/19 [History Last Taken Unknown] acetaminophen 650 mg PO Q6H PRN PRN tab 02/19/20 [Rx Last Taken Unknown] isosorbide dinitrate 30 mg tablet 30 mg PO BID #180 tab 02/27/20 [Rx Last Taken Unknown] albuterol sulfate 2.5 mg INHALATION Q4H PRN #180 ml 03/28/20 [Rx Last Taken Unknown] Wheel Chair #1 ea 04/17/20 [Rx Last Taken Unknown] trazodone 50 mg tablet See Rx Instructions .ROUTE .COMPLEX #90 tablet 05/27/20 [Rx Last Taken Unknown] hydrochlorothiazide 25 mg tablet 25 mg PO DAILY #90 tablet 06/20/20 [Rx Last Taken Unknown] pantoprazole 40 mg tablet,delayed release 40 mg PO DAILY #90 tablet 06/20/20 [Rx Last Taken Unknown] ondansetron 4 mg disintegrating tablet 4 mg PO Q8H PRN #30 tab 09/20/20 [Rx Last Taken Unknown] flash glucose sensor #2 ea 09/24/20 [Rx Last Taken Unknown] pen needle, diabetic 32 gauge x 5/32 #200 ea 10/18/20 [Rx Last Taken Unknown] atorvastatin 80 mg tablet 80 mg PO QHS #90 tab 10/22/20 [Rx Last Taken Unknown] budesonide-formoterol HFA 160 mcg-4.5 mcg/actuation aerosol inhaler 2 puff INHALATION BID #1 ea 11/14/20 [Rx Last Taken Unknown] bacitracin zinc 500 unit/gram topical ointment 1 applic TOPICAL DAILY 11/19/20 [History Last Taken Unknown] betamethasone dipropionate 0.05 % topical cream 1 applic TOPICAL DAILY 11/19/20 [History Last Taken Unknown] tramadol 50 mg tablet 50 mg PO BID PRN 11/27/20 [History Last Taken Unknown] dicyclomine 20 mg PO 4X/DAY 12/19/20 [History Last Taken Unknown] pregabalin 75 mg capsule 75 mg PO BID #60 cap 12/30/20 [Rx Last Taken Unknown] ursodiol 300 mg capsule 300 mg PO BID #60 cap 12/31/20 [Rx Last Taken Unknown] vitamin E mixed 400 unit capsule 800 unit PO .QD #60 cap 12/31/20 [Rx Last Taken Unknown] furosemide 20 mg tablet 20 mg PO DAILY 01/03/21 [History Last Taken Unknown] insulin glargine 100 unit/mL (3 mL) subcutaneous pen 50 unit SUBCUT BID ml 01/03/21 [History Last Taken Unknown] insulin lispro 200 unit/mL (3 mL) subcutaneous pen 65 unit SUBCUT BID ml 12/07 11/26 [History Last Taken Unknown] aspirin [Aspir-Low] 81 mg PO DAILY 01/07/21 [History Last Taken Unknown] baclofen 10 mg PO BID 01/07/21 [History Last Taken Unknown] clopidogrel 75 mg PO DAILY 01/07/21 [History Last Taken Unknown] insulin lispro [Humalog Pen] 60 unit SUBCUT TIDCM 01/07/21 [History Last Taken Unknown] metoprolol tartrate 75 mg PO BID 01/07/21 [History Last Taken Unknown] Allergy/AdvReac Type Severity Reaction Status Date / Time aripiprazole [From Abilify] Allergy Intermediate hallucinati Verified 01/03/21 09:42 ons ciprofloxacin Allergy Intermediate Swelling Verified 01/03/21 09:42 dicyclomine Allergy Intermediate unkown Verified 01/03/21 09:42 cinnamon [Cinnamon] Allergy Anaphylaxis Verified 01/03/21 09:42 Influenza Virus Vaccines Allergy Shortness Verified 01/03/21 09:42 of breath liraglutide [From Victoza] Allergy Anaphylaxis Verified 01/03/21 09:42 metronidazole [From Flagyl] Allergy Hives Verified 01/03/21 09:42 Metronidazole HCl Allergy Hives Verified 01/03/21 09:42 [From Flagyl] Penicillins Allergy Hives Verified 01/03/21 09:42 Sulfa (Sulfonamide Allergy Hives Verified 01/03/21 09:42 Antibiotics) codeine AdvReac Stops Verified 01/03/21 09:42 Ileostomy metformin HCl AdvReac Nausea Verified 01/03/21 09:42 [From Glucophage] ranolazine AdvReac Nausea/Vom/ Verified 01/03/21 09:42 Diarrhea [id number]-[id number] Reductase AdvReac Nausea/joints Verified 01/03/21 09:42 Inhibitor ache Family History Mother CVA (cerebral vascular accident) Diabetes Brother Heart disease of CAD at 65 Myocardial infarction Pancreatitis Father Cancer lymphomia Lymphoma Grandmother Myocardial infarction of [place] in her 70s Sister COPD (chronic obstructive pulmonary disease) Surgical History H/O colectomy H/O coronary artery bypass surgery (05/18/12) H/O sinus surgery H/O total hysterectomy history closed fissure History of cholecystectomy History of coronary artery stent placement (01/12/18) ileostomy Ileostomy status left thumb surgery Social History Smoking Status: Former smoker alcohol intake: never substance use type: does not use caffeine: Yes Type: coffee eating out: 1-3 times/week what type of physical activity do you participate in: none seatbelt use: always do you feel safe at home: Yes ROS PAULETTE Narrative Frequent falls due to her left leg giving out. Patient is fallen 12 times in the past month but has not fallen since using a walker. Uses a wheelchair when she goes for excursions outside of her house. All review of systems were negative except as mentioned above in the history of present illness and the other review of systems. Vital Signs Vital Signs Vital Signs: 01/07/21 18:33 01/07/21 18:40 01/07/21 20:04 Temperature 36.9 C 36.9 C Temperature Source Oral Oral Pulse Rate 71 71 Respiratory Rate 12 12 Respiratory Effort Normal Respiratory Pattern Normal Blood Pressure 129/80 H 129/80 H Blood Pressure Mean 96 96 Pulse Ox 93 93 Oxygen Delivery Method Room Air Room Air 01/07/21 21:40 01/07/21 23:01 01/07/21 23:03 Temperature 36.6 C 36.6 C 36.6 C Temperature Source Oral Oral Oral Pulse Rate 62 62 62 Respiratory Rate 21 H 18 18 Respiratory Effort Respiratory Pattern Blood Pressure 143/57 H 149/82 H 149/82 H Blood Pressure Mean 85 104 104 Pulse Ox 90 97 92 Oxygen Delivery Method Room Air Weight Weight: 90 kg Body Mass Index (BMI) 31.1 Physical Exam Const Constitutional Narrative: Alert to place but date is July Orientation / Consciousness: confused HEENT normocephalic, head/scalp atraumatic and moist oral mucous membranes Eyes EOMs intact bilaterally Eyes Narrative: No icterus Neck no lymphadenopathy Resp normal respiratory effort, no retractions, no use of accessory muscles and clear to auscultation bilaterally Cardio regular rate, regular rhythm, S1 normal heart sound and S2 normal heart sound GI normal to inspection, nondistended, normoactive bowel sounds, soft to palpation and non-tender GI Narrative: Ileostomy in left lower quadrant Extremity normal to inspection and full ROM Skin no rashes or lesions noted and no wounds Neuro Neuro Narrative: Ataxia. Myoclonic jerks. DTRs intact. No clonus. Psych affect normal Results Lab / Micro Data Attestation: I reviewed the patient's lab results. Result Diagrams: 01/07/21 19:53 01/07/21 19:53 Labs: Laboratory Results - last 24 hr 01/07/21 19:53: WBC 7.6, RBC 4.49, Hgb 12.4, Hct 38.9, MCV 86.6, MCH 27.6, MCHC 31.9 L, RDW Std Deviation 45.2 H, RDW Coeff of Jan 14.4, Plt Count 147 L, MPV 12.9 H, Immature Gran % (Auto) 0.400, Neut % (Auto) 57.7, Lymph % (Auto) 31.9, [place] % (Auto) 6.2, Eos % (Auto) 3.1, Baso % (Auto) 0.7, Absolute Neuts (auto) 4.4, Absolute Lymphs (auto) 2.44, Nucleated RBC % 0 01/07/21 19:53: Sodium 140, Potassium 3.1 L, Chloride 102, Carbon Dioxide 30.0, Anion Gap 8, BUN 55 H, Creatinine 2.56 H, Estim Creat Clear Calc 22.16, Est GFR (MDRD) Af Amer 24 L, Est GFR (MDRD) Non-Af 20 L, BUN/Creatinine Ratio 21.5 H, Glucose 187 H, Calcium 9.6, Total Bilirubin 0.30, Direct Bilirubin 0.12, AST 26, ALT 26, Alkaline Phosphatase 199 H, Troponin I High Sens 14, Total Protein 7.8, Albumin 3.3, Globulin 4.5 H 01/07/21 19:53: Ammonia 30.0 01/07/21 19:53: D-Dimer Quant (PE/DVT) 0.50 H 01/07/21 21:15: Urine Color Yellow, Urine Clarity Clear, Urine pH 5.0, Ur Specific [place] 1.020, Urine Protein 15 H, Urine Glucose (UA) Normal, Urine Ketones Negative, Urine Occult Blood Negative, Urine Nitrite Negative, Urine Bilirubin Negative, Urine Urobilinogen Normal, Ur Leukocyte Esterase Negative, Urine RBC 0 SEEN, Urine WBC 0 SEEN, Ur Squamous Epith Cells 0-5 SEEN, Urine Bacteria RARE, Hyaline Casts 0-5 SEEN, Urine Mucus 0 SEEN 01/07/21 21:15: Urine Opiates Screen NEGATIVE, Urine Methadone Screen NEGATIVE, Ur Barbiturates Screen NEGATIVE, Ur Phencyclidine Scrn NEGATIVE, Ur Amphetamines Screen NEGATIVE, U Methamphetamin-MDMA NEGATIVE, U Benzodiazepines Scrn NEGATIV E, Urine Cocaine Screen NEGATIVE, U Cannabinoids Screen NEGATIVE, Ur Drug Screen Comment Micro: Microbiology 01/07/21 19:40 Nasal Secretion SARS-CoV-2 Antigen (Rapid) - Final EKG Initial EKG: EKG Rhythm Intrepretation: Sinus Rhythm Radiology Impression Chest X-Ray 01/07/21 20:00 IMPRESSION: No acute cardiopulmonary disease. Electronically Signed: Marcellus Kaye DO at 20:23 EDT Tel [phone], Service support , Brain CT 01/07/21 20:37 IMPRESSION: No acute intracranial or calvarial abnormality. If there is no interval change. If there is continued concern for intracranial abnormality, MRI is recommended. Electronically Signed: Marcellus Kaye DO at 20:49 EDT Tel [phone], Service support , Assessment & Plan Assessment/Plan (1) Altered mental status: QUALIFIERS: Altered mental status type: unspecified Qualified Code(s): R41.82 - Altered mental status, unspecified (2) Myoclonus: (3) RALPH (acute kidney injury): PLAN: 1. Toxic encephalopathy * Concern the patient may have taken too much baclofen * Will also be holding the baclofen but also other potentiating medications, in cluding dicyclomine, metoclopramide, pregabalin, trazodone and tramadol * Head CT was negative for any acute process 2. Acute kidney injury * Hold diuretics * IV fluids 3. Myoclonus * Suspect related with the medications and will be held as mentioned above * I do not feel that this is tardive dyskinesia but metoclopramide will be held irregardless 4. Debility * Patient has fallen 12 times over the past month but has not fallen since she has been using a walker * PT OT evaluate and treat 5. Nonalcoholic fatty liver disease * Patient is on ursodiol and will continue * Follow-up with gastroenterology 6. Hypoglycemia * Resolved * Decrease basal from 50-25 for now * Hold prandial for now * Sliding scale insulin 7. VTE prophylaxis: Not indicated at present given current observation status Discussed with patient's partner at bedside. Charges/Coding Visit Charges OBSV E&M: 36986 Initial observation care L3
[2021-01-07 23:58] VITALS: BMI 31.1
[2021-01-08] VITALS (7 sets, daily range): BP systolic 127–151; BP diastolic 49–60; PULSE 57–73; RESP 16–18; TEMP 36.4–36.6; O2SAT 86–100
[2021-01-08] MEDS: 0.9% Normal Saline 1,000 ML 125 ML IV (00:33)
--- NOTE | 2021-01-08 01:39 | PCS.PANDOC ---
PANDEMIC DOCUMENTATION INITIATED: Date: 01/07/2021 Time: 0750
[2021-01-08 04:44] LABS: Absolute Lymphocyte Count 2.73 X10^3/uL (0.83-4.51); Absolute Neutrophil Count 3.5 X10^3/uL (2.0-7.7); Basophil# 0.05 X10^3/uL; Basophil% 0.7 % (0-1); Eosinophil# 0.23 X10^3/uL; Eosinophils% 3.3 % (0-5); Hematocrit 38.3 % (37-47); Hemoglobin 12.3 g/dL (12.0-15.0); Lymphocyte # 2.73 X10^3/ul (0.83-4.51); Mean Corp Hgb Conc 32.1 g/dL (32-36); Mean Corpuscular Hgb 27.6 pg (27.0-32.0); Mean Corpuscular Volume 85.9 fL (81-99); Mean Platelet Vol. 12.6 fl (6.2-12.0); Monocyte# 0.43 X10^3/uL; Monocyte% 6.1 % (0-10); NRBC Flagged by Analyzer 0.3 % (0-5); Neutrophil # 3.51 X10^3/uL (2.7-7.7); Neutrophil % 50.2 % (47-70); Platelet Count 156 K/mm3 (150-450); RBC Distribution Width CV 14.4 % (11.6-14.6); RBC Distribution Width SD 44.8 fl (35.1-43.9); Red Blood Count 4.46 M/mm3 (4.2-5.4)
[2021-01-08 05:07] LABS: ALB/GLOB Ratio 0.7 RATIO (0.9-2.4); AST(SGOT) 22 U/L (15-37); Alanine Aminotransfer ALT/SGPT 24 U/L (13-56); Albumin, Serum 3.1 g/dL (3.2-5.0); Alkaline Phosphatase 174 U/L (45-117); Anion Gap 7 (5-15); BUN 50 mg/dL (7-18); BUN/Creat Ratio 23.8 RATIO (10-20); Chloride 105 mmol/L (98-107); EST Glomerular Filtration Rate 25 mL/min (>60); Est Glom Filt Rate - Afr Amer 31 mL/min (>60); Globulin 4.2 g/dL (2.2-4.2); Glucose 108 mg/dL (74-106); Potassium 3.2 mmol/L (3.5-5.1); Protein, Total 7.3 g/dL (6.4-8.2); Sodium Level 142 mmol/L (136-145)
[2021-01-08 05:51] LABS: Bedside Glucose 116 mg/dL (70-110)
[2021-01-08] MEDS: Albuterol 2.5 MG/3 ML VIAL.NEB. INHALATION ×2 (06:56→13:11)
[2021-01-08] MEDS: Budesonide Respules 0.5 MG/2 ML AMPUL.NEB. INHALATION (06:56)
--- NOTE | 2021-01-08 07:11 | PN.HOSP_ITS ---
Objective Data Objective Data Vital Signs: Vital Signs Temp Pulse Resp BP Pulse Ox 97.5 F L 57 L 18 127/59 H 94 01/08/21 05:55 01/08/21 05:55 01/08/21 05:55 01/08/21 05:55 01/08/21 05:55 Oxygen Delivery Method Room Air Weight: 198 lb 6.656 oz Body Mass Index (BMI) 31.1 Intake & Output: Intake and Output for Last 24 Hours 01/06/21 01/07/21 01/08/21 23:59 23:59 23:59 Intake Total 1000 / 1000 Output Total 200 / 200 Balance 1000 / 1000 -200 / -200 Lab / Micro Data Result Diagrams: 01/08/21 04:32 01/08/21 04:32 Labs: Laboratory Results - last 24 hr 01/07/21 19:53: WBC 7.6, RBC 4.49, Hgb 12.4, Hct 38.9, MCV 86.6, MCH 27.6, MCHC 31.9 L, RDW Std Deviation 45.2 H, RDW Coeff of Jan 14.4, Plt Count 147 L, MPV 12.9 H, Immature Gran % (Auto) 0.400, Neut % (Auto) 57.7, Lymph % (Auto) 31.9, [place] % (Auto) 6.2, Eos % (Auto) 3.1, Baso % (Auto) 0.7, Absolute Neuts (auto) 4.4, Absolute Lymphs (auto) 2.44, Nucleated RBC % 0 01/07/21 19:53: Sodium 140, Potassium 3.1 L, Chloride 102, Carbon Dioxide 30.0, Anion Gap 8, BUN 55 H, Creatinine 2.56 H, Estim Creat Clear Calc 22.16, Est GFR (MDRD) Af Amer 24 L, Est GFR (MDRD) Non-Af 20 L, BUN/Creatinine Ratio 21.5 H, Glucose 187 H, Calcium 9.6, Total Bilirubin 0.30, Direct Bilirubin 0.12, AST 26, ALT 26, Alkaline Phosphatase 199 H, Troponin I High Sens 14, Total Protein 7.8, Albumin 3.3, Globulin 4.5 H 01/07/21 19:53: Ammonia 30.0 01/07/21 19:53: D-Dimer Quant (PE/DVT) 0.50 H 01/07/21 21:15: Urine Color Yellow, Urine Clarity Clear, Urine pH 5.0, Ur Specific [place] 1.020, Urine Protein 15 H, Urine Glucose (UA) Normal, Urine Ketones Negative, Urine Occult Blood Negative, Urine Nitrite Negative, Urine Bilirubin Negative, Urine Urobilinogen Normal, Ur Leukocyte Esterase Negative, Urine RBC 0 SEEN, Urine WBC 0 SEEN, Ur Squamous Epith Cells 0-5 SEEN, Urine Bacteria RARE, Hyaline Casts 0-5 SEEN, Urine Mucus 0 SEEN 01/07/21 21:15: Urine Opiates Screen NEGATIVE, Urine Methadone Screen NEGATIVE, Ur Barbiturates Screen NEGATIVE, Ur Phencyclidine Scrn NEGATIVE, Ur Amphetamines Screen NEGATIVE, U Methamphetamin-MDMA NEGATIVE, U Benzodiazepines Scrn NEGATIVE, Urine Cocaine Screen NEGATIVE, U Cannabinoids Screen NEGATIVE, Ur Drug Screen Comment 01/08/21 04:32: WBC 7.0, RBC 4.46, Hgb 12.3, Hct 38.3, MCV 85.9, MCH 27.6, MCHC 32.1, RDW Std Deviation 44.8 H, RDW Coeff of Jan 14.4, Plt Count 156, MPV 12.6 H , Immature Gran % (Auto) 0.700, Neut % (Auto) 50.2, Lymph % (Auto) 39.0, [place] % (Auto) 6.1, Eos % (Auto) 3.3, Baso % (Auto) 0.7, Absolute Neuts (auto) 3.5, Absolute Lymphs (auto) 2.73, Nucleated RBC % 0.3 01/08/21 04:32: Sodium 142, Potassium 3.2 L, Chloride 105, Carbon Dioxide 30.0, Anion Gap 7, BUN 50 H, Creatinine 2.10 H, Estim Creat Clear Calc 26.00, Est GFR (MDRD) Af Amer 31 L, Est GFR (MDRD) Non-Af 25 L, BUN/Creatinine Ratio 23.8 H, Glucose 108 H, Calcium 9.0, Total Bilirubin 0.40, AST 22, ALT 24, Alkaline Phosphatase 174 H, Total Protein 7.3, Albumin 3.1 L, Globulin 4.2, Albumin/Globulin Ratio 0.7 L 01/08/21 05:46: POC Glucose 116 H Micro: Microbiology 01/07/21 19:40 Nasal Secretion SARS-CoV-2 Antigen (Rapid) - Final Radiography Diagnostic Testing: Radiology Impression Chest X-Ray 01/07/21 20:00 IMPRESSION: No acute cardiopulmonary disease. Electronically Signed: Marcellus Kaye DO at 20:23 EDT Tel [phone], Service support , Brain CT 01/07/21 20:37 IMPRESSION: No acute intracranial or calvarial abnormality. If there is no interval change. If there is continued concern for intracranial abnormality, MRI is recommended. Electronically Signed: Marcellus Kaye DO at 20:49 EDT Tel [phone], Service support , Assessment & Plan Assessment/Plan (1) Altered mental status: QUALIFIERS: Altered mental status type: unspecified Qualified Code(s): R41.82 - Altered mental status, unspecified (2) Myoclonus: (3) RALPH (acute kidney injury): PLAN: 1. Toxic encephalopathy * Concern the patient may have taken too much baclofen * Will also be holding the baclofen but also other potentiating medications, including dicyclomine, metoclopramide, pregabalin, trazodone and tramadol * Head CT was negative for any acute process 2. Acute kidney injury * Hold diuretics * IV fluids 3. Myoclonus * Suspect related with the medications and will be held as mentioned above * I do not feel that this is tardive dyskinesia but metoclopramide will be held irregardless 4. Debility * Patient has fallen 12 times over the past month but has not fallen since she has been using a walker * PT OT evaluate and treat 5. Nonalcoholic fatty liver disease * Patient is on ursodiol and will continue * Follow-up with gastroenterology 6. Hypoglycemia * Resolved * Decrease basal from 50-25 for now * Hold prandial for now * Sliding scale insulin 7. VTE prophylaxis: Not indicated at present given current observation status Discussed with patient's partner at bedside.
--- NOTE | 2021-01-08 07:49 | CPS ---
Pt placed on 2 lpm. Nurse aware of change
[2021-01-08 08:24] LABS: Magnesium 1.5 mg/dL (1.6-2.6); Phosphorus 3.2 mg/dL (2.5-4.9)
[2021-01-08] MEDS: Isosorbide DN 30 MG Tablet PO (09:05)
[2021-01-08] MEDS: Pantoprazole Sodium 40 MG Tablet PO (09:05)
[2021-01-08] MEDS: Clopidogrel Bisulfate 75 MG Tablet PO (09:05)
[2021-01-08] MEDS: Metoprolol Tartrate 25 MG Tablet 75 MG PO (09:06)
[2021-01-08] MEDS: Aspirin E.C. 81 MG Tablet PO (09:06)
[2021-01-08] MEDS: Potassium Chloride Oral Tablet 20 MEQ 40 MEQ PO (09:07)
[2021-01-08] MEDS: Lidocaine 5% Patch 1 PATCH TOPICAL (09:10)
[2021-01-08] MEDS: Triamcinolone 0.5% Cream 1 APPLIC TOPICAL (09:11)
[2021-01-08] MEDS: Vitamin E 400 UNITS Capsule 800 UNITS PO (09:11)
[2021-01-08] MEDS: Ursodiol 250 MG Tablet PO (09:11)
--- NOTE | 2021-01-08 09:26 | PCM.DC ---
Discharge Instructions Follow Up Care Test Results: Test results from this visit will be discussed in further detail at your follow-up appointment, if applicable. Discharge Plan Admission Admit Date/Time: 01/07/21 23:56 Attending Provider: Castillo Ferris Primary Care Provider: Mala Mcgrath Discharge Orders/Prescriptions Prescriptions: Continued buprenorphine 15 mcg/hour patch weekly 1 patch TD SA RF: 0 metoclopramide HCl [Reglan] 5 mg tablet 5 mg PO DAILY PRN PRN (Reason: Nausea) RF: 0 hydrochlorothiazide 25 mg tablet 25 mg PO DAILY Qty: 90 RF: 3 pantoprazole 40 mg tablet,delayed release (DR/EC) 40 mg PO DAILY Qty: 90 RF: 3 (DME) Wheel Chair See Rx Instructions .Route .MEDSUPPLY Qty: 1 RF: 0 (DME) pen needle, diabetic [BD Ultra-Fine Key Pen Needle] 32 gauge x 5/32 needle See Rx Instructions .ROUTE .MEDSUPPLY Qty: 200 RF: 3 ondansetron 4 mg tablet,disintegrating 4 mg PO Q8H PRN (Reason: nausea and vomiting) Qty: 30 RF: 0 vitamin E mixed 400 unit capsule 800 unit PO .QD Qty: 60 RF: 3 tramadol 50 mg tablet 50 mg PO BID PRN (Reason: chronic back pain) RF: 0 furosemide [Lasix] 20 mg tablet 20 mg PO DAILY RF: 0 insulin lispro 200 unit/mL (3 mL) insulin pen 65 unit subcut TID RF: 0 acetaminophen 325 MG tablet 650 mg PO Q6H PRN PRN (Reason: Pain Score 1-10/Temp > 100.7 F) RF: 0 clopidogrel 75 mg tablet 75 mg PO DAILY RF: 0 metoprolol tartrate 50 mg tablet 75 mg PO BID RF: 0 isosorbide dinitrate 30 mg tablet 30 mg PO BID Qty: 180 RF: 3 trazodone 50 mg tablet See Rx Instructions .ROUTE .COMPLEX Qty: 90 RF: 3 (DME) FreeStyle [place] 14 Day Sensor Kit See Rx Instructions .ROUTE .MEDSUPPLY Qty: 2 RF: 6 atorvastatin 80 mg tablet 80 mg PO QHS Qty: 90 RF: 3 pregabalin 75 mg capsule 75 mg PO BID Qty: 60 RF: 1 Changed dicyclomine 20 mg tablet 20 mg PO 4X/DAY PRN (Reason: abdominal cramps) Qty: 0 RF: 0 Lantus Solostar U-100 Insulin 100 unit/mL (3 mL) insulin pen 25 unit subcut BID Qty: 0 RF: 0 Referrals / Follow Up: Mala Mcgrath MD [Primary Care Provider] - Donnie Mckeon MD [STAFF PHYSICIAN] - Within 1 Month (for left hip arthritis) Disposition Disposition (needs filled in before D/C Order can be placed): Home Health Service
--- NOTE | 2021-01-08 09:35 | PCM.DC.SUM ---
Providers Date of Admission: 01/07/21 Primary Care Physician: Dr. Mala Mcgrath MD Reason For Visit: CONFUSION Diagnosis Discharge Diagnosis (1) Altered mental status: Status: Acute Code(s): R41.82 - Altered mental status, unspecified Qualifiers: Altered mental status type: unspecified Qualified Code(s): R41.82 - Altered mental status, unspecified (2) Myoclonus: Status: Acute Code(s): G25.3 - Myoclonus (3) RALPH (acute kidney injury): Status: Acute Code(s): N17.9 - Acute kidney failure, unspecified Medications at Discharge Home Medications buprenorphine 15 mcg/hour weekly transdermal patch 1 patch TD SA 06/14/19 metoclopramide HCl 5 mg tablet 5 mg PO DAILY PRN PRN tab 10/20/19 acetaminophen 650 mg PO Q6H PRN PRN tab 02/19/20 isosorbide dinitrate 30 mg tablet 30 mg PO BID #180 tab 02/27/20 Wheel Chair #1 ea 04/17/20 trazodone 50 mg tablet See Rx Instructions .ROUTE .COMPLEX #90 tablet 05/27/20 hydrochlorothiazide 25 mg tablet 25 mg PO DAILY #90 tablet 06/20/20 pantoprazole 40 mg tablet,delayed release 40 mg PO DAILY #90 tablet 06/20/20 ondansetron 4 mg disintegrating tablet 4 mg PO Q8H PRN #30 tab 09/20/20 flash glucose sensor #2 ea 09/24/20 pen needle, diabetic 32 gauge x 5/32 #200 ea 10/18/20 atorvastatin 80 mg tablet 80 mg PO QHS #90 tab 10/22/20 tramadol 50 mg tablet 50 mg PO BID PRN 11/27/20 pregabalin 75 mg capsule 75 mg PO BID #60 cap 12/30/20 vitamin E mixed 400 unit capsule 800 unit PO .QD #60 cap 12/31/20 insulin lispro 200 unit/mL (3 mL) subcutaneous pen 65 unit SUBCUT TID ml 01/03/21 clopidogrel 75 mg PO DAILY 01/07/21 metoprolol tartrate 75 mg PO BID 01/07/21 Lantus Solostar U-100 Insulin 25 unit SUBCUT BID #0 ml 01/08/21 dicyclomine 20 mg PO 4X/DAY PRN #0 tab 01/08/21 Hospital Course Summary of Care Provided Hospital Course: Patient is 60-year-old female with multiple comorbidities was admitted with hallucinations mainly visual, confusion which was change in her mental status. She was also found to be hypoglycemic with blood sugar 40s. Patient was having jerking movement. 1. Toxic encephalopathy most likely polypharmacy: Currently patient mental status back to baseline. No muscle rigidity, clonus, hyperreflexia, hyperpyrexia suggestive of serotonin syndrome. Plantars downgoing. Patient was advised to polypharmacy. Patient took 3 tablets of baclofen. Patient on multiple medications including pregabalin, tramadol and trazodone, dicyclomine. Follow with PCP hoping to discontinue some of these medications. Head CT was negative for any acute process 2. Acute kidney injury with CKD stage IIIb: Patient baseline creatinine runs around 1.4-1.9. patient creatinine improved from 2.56-2.1 during this hospital course. Adequate hydration. Lasix discontinued. 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 3. Myoclonus: Resolved. No clinical signs or symptoms of tardive dyskinesia. Suspect related with the medications and will be held as mentioned above 4. Debility Patient has fallen 12 times over the past month but has not fallen since she has been using a walker Was evaluated PT and OT 5. Nonalcoholic fatty liver disease Patient is on ursodiol and will continue Follow-up with gastroenterology 6. Hypoglycemia Resolved Decrease basal from 50-25 units on her home medication 7. VTE prophylaxis: Not indicated at present given current observation status Discharge medication reconciliation done. Discharge follow-up instructions completed. Discharge process discussed with the patient and all questions were answered to patient's satisfaction. Total time spent, exact 35 minutes on discharge meds reconciliation, examination, coordination of care with nurses and ancillary staff, review of imaging and blood test and discussion with the patient on follow-up instructions Physical Exam Narrative General: Alert, Oriented x3, Cooperative HEENT: Atraumatic, PERRLA, EOMI, Normocephalic Oral: No Gingival or Mucosal Lesions/ Ulcerations Neck: Supple, No JVD, Negative Carotid Bruits Lungs: Air entry diminished in bilateral lung bases. No crepitation/rhonchi Cardiovascular: Regular rate, Regular Rhythm, Normal S1, Normal S2, No murmurs Abdomen: Bowel Sounds Present, Soft, Non Tender, Non-Distended : No renal angle tenderness. No suprapubic tenderness. Extremities: No edema, Capillary Refill Less than 3 Seconds Skin: No rashes, No breakdown Musculoskeletal: ROM at left hip joint restricted. Left groin tenderness suggestive of severe osteoarthritis. Neurological: Cranial nerves II-XII grossly intact, DTR 2+/4 and Symmetrical, Neuro grossly intact Psych/Mental Status: Flat affect. Weight / BMI Weight Weight: 198 lb 6.656 oz Body Mass Index (BMI) 31.1 ABG / Lab / Microbiology Data Result Diagrams: 01/08/21 04:32 01/08/21 04:32 Laboratory: Laboratory Results - last 24 hr 01/07/21 19:53: WBC 7.6, RBC 4.49, Hgb 12.4, Hct 38.9, MCV 86.6, MCH 27.6, MCHC 31.9 L, RDW Std Deviation 45.2 H, RDW Coeff of Jan 14.4, Plt Count 147 L, MPV 12.9 H, Immature Gran % (Auto) 0.400, Neut % (Auto) 57.7, Lymph % (Auto) 31.9, [place] % (Auto) 6.2, Eos % (Auto) 3.1, Baso % (Auto) 0.7, Absolute Neuts (auto) 4.4, Absolute Lymphs (auto) 2.44, Nucleated RBC % 0 01/07/21 19:53: Sodium 140, Potassium 3.1 L, Chloride 102, Carbon Dioxide 30.0, Anion Gap 8, BUN 55 H, Creatinine 2.56 H, Estim Creat Clear Calc 22.16, Est GFR (MDRD) Af Amer 24 L, Est GFR (MDRD) Non-Af 20 L, BUN/Creatinine Ratio 21.5 H, Glucose 187 H, Calcium 9.6, Total Bilirubin 0.30, Direct Bilirubin 0.12, AST 26, ALT 26, Alkaline Phosphatase 199 H, Troponin I High Sens 14, Total Protein 7.8, Albumin 3.3, Globulin 4.5 H 01/07/21 19:53: Ammonia 30.0 01/07/21 19:53: D-Dimer Quant (PE/DVT) 0.50 H 01/07/21 21:15: Urine Color Yellow, Urine Clarity Clear, Urine pH 5.0, Ur Specific [place] 1.020, Urine Protein 15 H, Urine Glucose (UA) Normal, Urine Ketones Negative, Urine Occult Blood Negative, Urine Nitrite Negative, Urine Bilirubin Negative, Urine Urobilinogen Normal, Ur Leukocyte Esterase Negative, Urine RBC 0 SEEN, Urine WBC 0 SEEN, Ur Squamous Epith Cells 0-5 SEEN, Urine Bacteria RARE, Hyaline Casts 0-5 SEEN, Urine Mucus 0 SEEN 01/07/21 21:15: Urine Opiates Screen NEGATIVE, Urine Methadone Screen NEGATIVE, Ur Barbiturates Screen NEGATIVE, Ur Phencyclidine Scrn NEGATIVE, Ur Amphetamines Screen NEGATIVE, U Methamphetamin-MDMA NEGATIVE, U Benzodiazepines Scrn NEGATIVE, Urine Cocaine Screen NEGATIVE, U Cannabinoids Screen NEGATIVE, Ur Drug Screen Comment 01/08/21 04:32: WBC 7.0, RBC 4.46, Hgb 12.3, Hct 38.3, MCV 85.9, MCH 27.6, MCHC 32.1, RDW Std Deviation 44.8 H, RDW Coeff of Jan 14.4, Plt Count 156, MPV 12.6 H, Immature Gran % (Auto) 0.700, Neut % (Auto) 50.2, Lymph % (Auto) 39.0, [place] % (Auto) 6.1, Eos % (Auto) 3.3, Baso % (Auto) 0.7, Absolute Neuts (auto) 3.5, Absolute Lymphs (auto) 2.73, Nucleated RBC % 0.3 01/08/21 04:32: Sodium 142, Potassium 3.2 L, Chloride 105, Carbon Dioxide 30.0, Anion Gap 7, BUN 50 H, Creatinine 2.10 H, Estim Creat Clear Calc 26.00, Est GFR (MDRD) Af Amer 31 L, Est GFR (MDRD) Non-Af 25 L, BUN/Creatinine Ratio 23.8 H, Glucose 108 H, Calcium 9.0, Total Bilirubin 0.40, AST 22, ALT 24, Alkaline Phosphatase 174 H, Total Protein 7.3, Albumin 3.1 L, Globulin 4.2, Albumin/Globulin Ratio 0.7 L 01/08/21 04:32: Phosphorus 3.2, Magnesium 1.5 L 01/08/21 05:46: POC Glucose 116 H Microbiology: Microbiology 01/07/21 19:40 Nasal Secretion SARS-CoV-2 Antigen (Rapid) - Final Radiography Diagnostic Testing: Radiology Impression Chest X-Ray 01/07/21 20:00 IMPRESSION: No acute cardiopulmonary disease. Electronically Signed: Marcellus Kaye DO at 20:23 EDT Tel [phone], Service support , Brain CT 01/07/21 20:37 IMPRESSION: No acute intracranial or calvarial abnormality. If there is no interval change. If there is continued concern for intracranial abnormality, MRI is recommended. Electronically Signed: Marcellus Kaye DO at 20:49 EDT Tel [phone], Service support , Meaningful Use Info Meaningful Use Diagnoses (Choose all that apply): None applicable Discharge Plan Admission Admit Date/Time: 01/07/21 23:56 Attending Provider: Castillo Ferris Primary Care Provider: Mala Mcgrath Discharge Orders/Prescriptions Prescriptions: Continued buprenorphine 15 mcg/hour patch weekly 1 patch TD SA RF: 0 metoclopramide HCl [Reglan] 5 mg tablet 5 mg PO DAILY PRN PRN (Reason: Nausea) RF: 0 hydrochlorothiazide 25 mg tablet 25 mg PO DAILY Qty: 90 RF: 3 pantoprazole 40 mg tablet,delayed release (DR/EC) 40 mg PO DAILY Qty: 90 RF: 3 (DME) Wheel Chair See Rx Instructions .Route .MEDSUPPLY Qty: 1 RF: 0 (DME) pen needle, diabetic [BD Ultra-Fine Key Pen Needle] 32 gauge x 5/32 needle See Rx Instructions .ROUTE .MEDSUPPLY Qty: 200 RF: 3 ondansetron 4 mg tablet,disintegrating 4 mg PO Q8H PRN (Reason: nausea and vomiting) Qty: 30 RF: 0 vitamin E mixed 400 unit capsule 800 unit PO .QD Qty: 60 RF: 3 tramadol 50 mg tablet 50 mg PO BID PRN (Reason: chronic back pain) RF: 0 insulin lispro 200 unit/mL (3 mL) insulin pen 65 unit subcut TID RF: 0 acetaminophen 325 MG tablet 650 mg PO Q6H PRN PRN (Reason: Pain Score 1-10/Temp > 100.7 F) RF: 0 clopidogrel 75 mg tablet 75 mg PO DAILY RF: 0 metoprolol tartrate 50 mg tablet 75 mg PO BID RF: 0 isosorbide dinitrate 30 mg tablet 30 mg PO BID Qty: 180 RF: 3 trazodone 50 mg tablet See Rx Instructions .ROUTE .COMPLEX Qty: 90 RF: 3 (DME) FreeStyle Allison 14 Day Sensor Kit See Rx Instructions .ROUTE .MEDSUPPLY Qty: 2 RF: 6 atorvastatin 80 mg tablet 80 mg PO QHS Qty: 90 RF: 3 pregabalin 75 mg capsule 75 mg PO BID Qty: 60 RF: 1 Changed dicyclomine 20 mg tablet 20 mg PO 4X/DAY PRN (Reason: abdominal cramps) Qty: 0 RF: 0 Lantus Solostar U-100 Insulin 100 unit/mL (3 mL) insulin pen 25 unit subcut BID Qty: 0 RF: 0 Discontinued furosemide [Lasix] 20 mg tablet 20 mg PO DAILY RF: 0 Referrals / Follow Up: Mala Mcgrath MD [Primary Care Provider] - Donnie Mckeon MD [STAFF PHYSICIAN] - Within 1 Month (for left hip arthritis) Disposition Disposition (needs filled in before D/C Order can be placed): Home Health Service Charges/Coding Visit Charges Inpatient E&M: 00354 Disch Hosp
[2021-01-08] MEDS: Insulin Lispro 100 UNIT/ML INSULN.PEN SC (12:44)
[2021-01-08 12:46] LABS: Bedside Glucose 301 mg/dL (70-110)
--- NOTE | 2021-01-08 14:04 | CASEMGMT ---
RN REDD updated by nursing that therapy is recommending HHC. RN CM in to discuss with patient. Patient is interested in HHC and patient was provided a list of HHC providers including quality and resource use data and consistent with the patient?s preferred geographic region, medical needs, and insurance network. The patient?s preferred provider is [facility]. Patient declined further needs. RN CM called and sent referral to [facility] and awaiting acceptance. CM will continue to follow this patient and plan for a safe discharge.
== END 2021-01-08 15:47 | disposition home health service (06) ==
LOC: ED 22:47 → MS2 01-08 02:14
PROVIDERS: Emergency Provider Emergency Medicine; PCP Internal Medicine; Visit Provider Internal Medicine
DX: R41.82 Altered mental status, unspecified (principal); G25.3 Myoclonus; G92.8 Other toxic encephalopathy; N17.9 Acute kidney failure, unspecified; R07.89 Other chest pain; I25.10 Atherosclerotic heart disease of native coronary artery without angina pectoris; I13.0 Hypertensive heart and chronic kidney disease with heart failure and stage 1 through stage 4 chronic kidney disease, or unspecified chronic kidney disease; E11.22 Type 2 diabetes mellitus with diabetic chronic kidney disease; J96.11 Chronic respiratory failure with hypoxia; I50.32 Chronic diastolic (congestive) heart failure; J44.9 Chronic obstructive pulmonary disease, unspecified; E78.49 Other hyperlipidemia; N18.32 Chronic kidney disease, stage 3b; G47.33 Obstructive sleep apnea (adult) (pediatric); K75.81 Nonalcoholic steatohepatitis (NASH); I27.21 Secondary pulmonary arterial hypertension; E11.649 Type 2 diabetes mellitus with hypoglycemia without coma; E11.43 Type 2 diabetes mellitus with diabetic autonomic (poly)neuropathy; K31.84 Gastroparesis; F41.8 Other specified anxiety disorders; K51.90 Ulcerative colitis, unspecified, without complications; M19.90 Unspecified osteoarthritis, unspecified site; Z99.81 Dependence on supplemental oxygen; Z79.899 Other long term (current) drug therapy; Z79.4 Long term (current) use of insulin; Z79.02 Long term (current) use of antithrombotics/antiplatelets; Z87.891 Personal history of nicotine dependence; Z79.82 Long term (current) use of aspirin
CPT/HCPCS: 36415; 70450; 71045; 80048; 80053; 80076; 80307; 81001; 82140; 82962; 83735; 84100; 84484; 85025; 85379; 87040; 87426; 87635; 93005; 94640; 96360; 96361; 97162; 97166; 99218; 99285; J7030; U0005; A4216; G0378; U0003

== ENCOUNTER → 2021-01-14 13:01 | Outpatient (CLI) | payer MEDICARE, MEDICAID, SELFPAY ==
[2020-11-27 10:47] VITALS: BMI 30.9
--- NOTE | 2021-01-14 13:02 | MRI_ITS ---
STUDY: MR Spine Lumbar W/O Contrast 01/14/2021 4:32 PM REASON FOR EXAM: Female, 60 years old. LOW BACK PAIN, LEFT HIP/LEG PAIN TECHNIQUE: MR Spine Lumbar W/O Contrast Standardized fat and water weighted pulse sequences were obtained. COMPARISON: ctap 7.14.21 FINDINGS: There is straightening of the normal lumbar lordosis. There is no substantial scoliosis. Normal conus medullaris that terminates at the L1 L1-2: Loss of intervertebral disc height. There is endplate spondylosis of the vertebral body. Normal central canal and intervertebral neuroforamina. There is bilateral facet arthropathy. There is bilateral ligamentum flavum thickening. L2-3: Loss of intervertebral disc height. There is endplate spondylosis of the vertebral body. Normal central canal and intervertebral neuroforamina. There is bilateral facet arthropathy. There is bilateral ligamentum flavum thickening. L3-4: Loss of intervertebral disc height. There is endplate spondylosis of the vertebral body. Normal central canal and intervertebral neuroforamina. There is bilateral facet arthropathy. There is bilateral ligamentum flavum thickening. L4-5: Loss of intervertebral disc height. There is endplate spondylosis of the vertebral body. There is bilateral facet arthropathy. Central disc herniation. No spinal stenosis. There is bilateral ligamentum flavum thickening. Disc desiccation. L5-S1: Loss of intervertebral disc height. There is endplate spondylosis of the vertebral body. There is bilateral facet arthropathy. Right neural foraminal stenosis. Compression of exiting right nerve roots. Central disc herniation. No spinal stenosis. There is bilateral ligamentum flavum thickening. Disc desiccation. Normal visualized sacral ala. Normal visualized paraspinous soft tissue structures. MRI/Spine Lumbar (Routine) IMPRESSION: There is mild straightening of the normal lumbar lordosis. This can suggest back strain. Central disc herniation at L4-5 and L5-S1. Electronically Signed: Cesar Bear MD at 17:26 EST , Service support ,
== END ==
PROVIDERS: PCP Internal Medicine
DX: M54.16 Radiculopathy, lumbar region (principal)
CPT/HCPCS: 72148

== ENCOUNTER → 2021-01-17 09:54 | Outpatient (CLI) | payer MEDICARE, MEDICAID, SELFPAY ==
[2020-11-27 10:47] VITALS: BMI 30.9
[2021-01-17 12:46] LABS: Anion Gap 7 (5-15); BUN 33 mg/dL (7-18); BUN/Creat Ratio 18.8 RATIO (10-20); Calcium,Total 9.1 mg/dL (8.5-10.1); Chloride 108 mmol/L (98-107); Creatinine, Serum 1.76 mg/dL (0.55-1.02); EST Glomerular Filtration Rate 31 mL/min (>60); Est Glom Filt Rate - Afr Amer 38 mL/min (>60); Glucose 299 mg/dL (74-106); Sodium Level 139 mmol/L (136-145)
== END ==
PROVIDERS: PCP Internal Medicine; Referring Provider Internal Medicine; Visit Provider Internal Medicine
DX: I10 Essential (primary) hypertension (principal)
CPT/HCPCS: 36415; 80048

== ENCOUNTER → 2021-02-14 10:47 | Outpatient (CLI) | payer MEDICARE, MEDICAID, SELFPAY ==
[2020-11-27 10:47] VITALS: BMI 30.9
--- NOTE | 2021-02-14 10:49 | MRI_ITS ---
STUDY: MRI LEFT HIP REASON FOR EXAM: Left hip pain for 2 months, no specific injury. TECHNIQUE: Standardized fat and water weighted pulse sequences were obtained in all 3 orthogonal planes. COMPARISON: Radiographs 11/28/2020. FINDINGS: There is mild left hip arthrosis with mild chondral thinning (proton-density sagittal image 17). There is a left hip joint effusion (proton-density sagittal images 10-13). Normal acetabulum. Normal labrum. There is avascular necrosis of the left femoral head with bone edema extending into the femoral neck and intertrochanteric femur (inversion recovery coronal images 12-16). There is no avascular necrosis of the contralateral right femoral head. Normal gluteus minimus, medius and iliopsoas tendons and distal insertions. There is no trochanteric, iliopsoas or iliopectineal bursitis. Normal superior and inferior pubic rami. Normal pubic symphysis. Normal ischial tuberosity. There is a small partial tear of the left conjoint tendon at the ischial origin (T2 axial image 19). Normal visualized iliac wing, sacroiliac joint, and sacral ala. Normal visualized soft tissue structures of the pelvis. MRI/Lower Ext Joint Only (Routine) IMPRESSION: Avascular necrosis of the left femoral head with bone edema. Mild left hip arthrosis, Left hip joint effusion. Small partial tear of the left conjoint tendon. Electronically Signed: José Miguel Mariee MD at 12:55 EST Tel , Service support ,
== END ==
PROVIDERS: PCP Internal Medicine; Referring Provider Orthopaedic Surgery; Visit Provider Orthopaedic Surgery
DX: M25.552 Pain in left hip (principal)
CPT/HCPCS: 73721

== ENCOUNTER → 2021-02-26 12:07 | Outpatient (CLI) | payer MEDICARE, MEDICAID, SELFPAY ==
[2020-11-27 10:47] VITALS: BMI 30.9
[2021-02-28 09:06] LABS: Fructosamine 309 umol/L (0-285)
== END ==
PROVIDERS: PCP Internal Medicine; Referring Provider Orthopaedic Surgery; Visit Provider Orthopaedic Surgery
DX: E11.42 Type 2 diabetes mellitus with diabetic polyneuropathy (principal); Z79.4 Long term (current) use of insulin
CPT/HCPCS: 36415; 82985

== ENCOUNTER 2021-03-21 10:09 | Outpatient (CLI) | payer MEDICARE, MEDICAID, SELFPAY ==
[2020-11-27 10:47] VITALS: BMI 30.9
[2021-03-21 11:13] LABS: ALB/GLOB Ratio 0.7 RATIO (0.9-2.4); AST(SGOT) 28 U/L (15-37); Alanine Aminotransfer ALT/SGPT 23 U/L (13-56); Albumin, Serum 3.3 g/dL (3.2-5.0); Alkaline Phosphatase 147 U/L (45-117); Anion Gap 5 (5-15); BUN 30 mg/dL (7-18); Calcium,Total 9.1 mg/dL (8.5-10.1); Chloride 104 mmol/L (98-107); Creatinine, Serum 1.58 mg/dL (0.55-1.02); EST Glomerular Filtration Rate 35 mL/min (>60); Est Glom Filt Rate - Afr Amer 43 mL/min (>60); Globulin 4.5 g/dL (2.2-4.2); Glucose 108 mg/dL (74-106); Potassium 3.6 mmol/L (3.5-5.1); Protein, Total 7.8 g/dL (6.4-8.2); Sodium Level 141 mmol/L (136-145)
[2021-03-22 16:19] LABS: Fructosamine 253 umol/L (0-285)
== END 2021-03-21 23:59 | disposition short-term general hospital (02) ==
LOC: BIMLAB 10:10
PROVIDERS: Orthopaedic Surgery; PCP Internal Medicine; Referring Provider Internal Medicine; Visit Provider Internal Medicine
DX: G25.3 Myoclonus (principal); E11.42 Type 2 diabetes mellitus with diabetic polyneuropathy; Z79.4 Long term (current) use of insulin; M25.552 Pain in left hip
CPT/HCPCS: 36415; 80053; 82140; 82985

== ENCOUNTER 2021-04-09 08:12 | Outpatient (CLI) | payer MEDICARE, MEDICAID, SELFPAY ==
[2020-11-27 10:47] VITALS: BMI 30.9
--- NOTE | 2021-04-09 08:13 | CT_ITS ---
STUDY: LOW DOSE CT LUNG CANCER SCREENING REASON FOR EXAM: Female, 60 years old. Smoker 1/2 PPD for 40 years quit 2012. History of COPD. RADIATION DOSAGE (If Supplied By Facility): CTDIvol = ( 4.02 ) mGy, DLP = ( 119.33 ) mGycm TECHNIQUE: No contrast was administered. Low dose technique was utilized (average mAS-38 and kVp 120). 1.25 mm axial source images with a slice interval of 1.25-mm were reconstructed in lung windows. 2.5 mm axial source images with a slice interval of 2.5-mm were reconstructed in lung windows. 5.0 mm axial source images with a slice interval of 5.0-mm were reconstructed in soft tissue windows. Nodule measured using lung windows on PACS and/or independent workstation with automated measurement of minimum and maximum diameter. Nodule measurement reported as average diameter rounded to the nearest whole number. Growth is defined as an increase ins size of greater than 1.5 mm. COMPARISON: Comparison is made with prior examination dated 03/16/2020. NODULES: No suspicious nodules are seen. Emphysema: Mild emphysematous changes. Mild increased linear markings at the lung bases suggestive of mild scarring. The previously seen patchy bilateral pulmonary infiltrates have cleared. Endobronchial lesion: None Aorta: Atherosclerotic plaque formation. Coronary arteries: Coronary artery calcification. Heart: Prior CABG. Pulmonary artery: Unremarkable. Mediastinal nodes: Unremarkable. Other chest and abdominal findings: CT/Low Dose CT Lung Screening IMPRESSION: Lung-RADS category 2 - Continue annual screening with LDCT in 12 months. IMPORTANT NOTES FOR USE: ACR Lung-RADS Version 1.1 Assessment Categories Release Date: 2018 Category: Coded 0-4 bases on nodule(s) with highest degree of suspicion. Negative screen is defined as categories 1 and 2; a positive screen is defined as categories 3 and 4. Category 3 and 4A nodules that are unchanged on interval CT should be coded as category 2, and individuals returned to screening in 12 months. Category 4X: Category 3 or 4 nodules with additional imaging findings that increase the suspicion of lung cancer, such as spiculation, GGN that doubles in size in 1 year, enlarged lymph notes, etc. Category Modifiers: S (significant finding unrelated to lung cancer) Electronically Signed: Eric Spencer MD at 9:05 EST ,
== END 2021-04-09 23:59 | disposition short-term general hospital (02) ==
LOC: CT 08:13
PROVIDERS: PCP Internal Medicine; Referring Provider Nurse Practitioner Acute Care; Visit Provider Nurse Practitioner Acute Care
DX: F17.210 Nicotine dependence, cigarettes, uncomplicated (principal)
CPT/HCPCS: 71271

== ENCOUNTER 2021-04-18 07:55 | Outpatient (CLI) | payer MEDICARE, MEDICAID, SELFPAY ==
[2020-11-27 10:47] VITALS: BMI 30.9
--- NOTE | 2021-04-18 07:57 | CT_ITS ---
CT of the left lower extremity without contrast INDICATION: Preoperative planning for hip arthroplasty. TECHNIQUE: Multiple thin section axial CT images of the left lower extremity were obtained through the abdomen through the knee joints and filmed in bone windows. Furthermore, multiple sagittal and coronal reconstructions were performed. Dose limiting techniques were utilized. FINDINGS: No abnormal soft tissue mass, lymphadenopathy, or fluid collection. Normal appearance to the musculature of the thigh. No acute fracture or dislocation.. There is radiolucency of the femoral head with collapse consistent with avascular necrosis. IMPRESSION: Avascular necrosis of the left femoral head with collapse. Electronically Signed: Houston Ann MD at 10:41 EST , CT/Extremity Lower without Contra
== END 2021-04-18 23:59 | disposition home or self-care (01) ==
LOC: CT 07:57
PROVIDERS: PCP Internal Medicine; Referring Provider Orthopaedic Surgery; Visit Provider Orthopaedic Surgery
DX: M16.12 Unilateral primary osteoarthritis, left hip (principal)
CPT/HCPCS: 73700

== ENCOUNTER 2021-04-22 14:01 | Observation (INO) | payer MEDICARE, MEDICAID, SELFPAY ==
[2020-11-27 10:47] VITALS: BMI 30.9
--- NOTE | 2021-04-09 08:10 | EKG12_ITS ---
Test Reason : PRE OP Blood Pressure : / mmHG Vent. Rate : 075 BPM Atrial Rate : 075 BPM P-R Int : 162 ms QRS Dur : 094 ms QT Int : 396 ms P-R-T Axes : 025 -29 152 degrees QTc Int : 442 ms Normal sinus rhythm Left ventricular hypertrophy with repolarization abnormality Abnormal ECG Confirmed by CHLOÉ DOMINGUEZ, AL ([id number]), department editor ISABELLA BUTLER ([id number]) on 04/10/2021 7:08:58 AM Referred By: Henri Camacho Confirmed By:AL LUEVANO MD
[2021-04-09 08:15] LABS: Absolute Lymphocyte Count 2.91 X10^3/uL (0.83-4.51); Absolute Neutrophil Count 4.8 X10^3/uL (2.0-7.7); Basophil# 0.06 X10^3/uL; Basophil% 0.7 % (0-1); Eosinophil# 0.32 X10^3/uL; Eosinophils% 3.6 % (0-5); Hematocrit 39.4 % (37-47); Hemoglobin 12.7 g/dL (12.0-15.0); Lymphocyte # 2.91 X10^3/ul (0.83-4.51); Lymphocyte % 33.1 % (19-41); Mean Corp Hgb Conc 32.2 g/dL (32-36); Mean Corpuscular Hgb 27.6 pg (27.0-32.0); Mean Corpuscular Volume 85.7 fL (81-99); Monocyte# 0.59 X10^3/uL; Monocyte% 6.7 % (0-10); NRBC Flagged by Analyzer 0 % (0-5); Neutrophil # 4.83 X10^3/uL (2.7-7.7); Neutrophil % 55.1 % (47-70); Platelet Count 185 K/mm3 (150-450); RBC Distribution Width CV 15.1 % (11.6-14.6); RBC Distribution Width SD 47.1 fl (35.1-43.9); White Blood Count 8.8 K/mm3 (4.4-11.0)
[2021-04-09 08:40] LABS: Anion Gap 7 (5-15); BUN 34 mg/dL (7-18); BUN/Creat Ratio 20.4 RATIO (10-20); Calcium,Total 8.9 mg/dL (8.5-10.1); Chloride 100 mmol/L (98-107); Creatinine, Serum 1.67 mg/dL (0.55-1.02); EST Glomerular Filtration Rate 33 mL/min (>60); Est Glom Filt Rate - Afr Amer 40 mL/min (>60); Glucose 265 mg/dL (74-106); Magnesium 1.1 mg/dL (1.6-2.6); Potassium 3.7 mmol/L (3.5-5.1); Sodium Level 137 mmol/L (136-145)
[2021-04-09 08:43] LABS: Prothrombin Time (Protime)PT. 12.7 SECONDS (11.7-14.9)
[2021-04-09 08:44] LABS: Partial Thromboplast Time 36.9 Seconds (24.1-36.2)
[2021-04-09 08:51] LABS: Hemoglobin A1c 6.6 % (3.8-5.6)
[2021-04-22] VITALS (15 sets, daily range): BP systolic 108–163; BP diastolic 50–74; PULSE 69–91; RESP 14–18; TEMP 36.3–37; O2SAT 95–100; BMI 31.2
[2021-04-22] MEDS: Scopolamine 1mg/72hr Patch 1 PATCH TD (07:30)
[2021-04-22] MEDS: Acetaminophen 500 MG Tablet 1000 MG PO ×2 (10:06→20:08)
[2021-04-22] MEDS: Lactated Ringers 1,000 ML 999 ML IV (10:06)
[2021-04-22] MEDS: Gabapentin 600 MG Tablet PO (10:14)
[2021-04-22] MEDS: dexAMETHasone 10 MG/ML Vial IV (10:15)
[2021-04-22] MEDS: Insulin Lispro 100 UNIT/ML INSULN.PEN SC ×2 (10:15→20:14)
[2021-04-22 10:30] LABS: Bedside Glucose 289 mg/dL (70-110)
--- NOTE | 2021-04-22 10:36 | PCM.HP.BLA ---
History and Physical Date of Admission: 04/22/21 Date of Service: 02/19/21 MR#:[id number]: ASHLEY MÉNDEZ [facility] #:[id number]:1960 Provider:Dr. Henri Camacho, DOAge/Sex: 60/F [facility] [place] [facility] Intake Intake Visit Reasons: LEFT HIP Chief Complaint: 3 m f/u Allergies aripiprazole [From Abilify] Allergy (Intermediate, Verified 01/17/21 10:48) hallucinations ciprofloxacin Allergy (Intermediate, Verified 01/17/21 10:48) Swelling dicyclomine Allergy (Intermediate, Verified 01/17/21 10:48) unkown cinnamon [Cinnamon] Allergy (Verified 01/17/21 10:48) Anaphylaxis Influenza Virus Vaccines Allergy (Verified 01/17/21 10:48) Shortness of breath liraglutide [From Victoza] Allergy (Verified 01/17/21 10:48) Anaphylaxis metronidazole [From Flagyl] Allergy (Verified 01/17/21 10:48) Hives Metronidazole HCl [From Flagyl] Allergy (Verified 01/17/21 10:48) Hives Penicillins Allergy (Verified 01/17/21 10:48) Hives Sulfa (Sulfonamide Antibiotics) Allergy (Verified 01/17/21 10:48) Hives codeine Adverse Reaction (Verified 01/17/21 10:48) Stops Ileostomy metformin HCl [From Glucophage] Adverse Reaction (Verified 01/17/21 10:48) Nausea ranolazine Adverse Reaction (Verified 01/17/21 10:48) Nausea/Vom/Diarrhea Mshbfco-BBV-RqG Reductase Inhibitor [Zjbpurn-Xcn-Xvm Reductase Inhibitor] Adverse Reaction (Verified 01/17/21 10:48) Nausea/joints ache PFSH Medical History (Reviewed 02/05/21 @ 16:12 by Luis Garcia PEOPLESOFT HR DEVELOPER, PEOPLESOFT HR DEVELOPER-C) Anemia of chronic renal failure, stage 3 (moderate) Arthritis Atherosclerosis of coronary artery bypass graft without angina pectoris Atherosclerotic heart disease of [place] coronary artery without angina pectoris BMI 31.0-31.9,adult Chronic back pain Chronic diastolic (congestive) heart failure Chronic respiratory failure Chronic respiratory failure with hypoxia, on home O2 therapy Cirrhosis CKD (chronic kidney disease) stage 3, GFR 30-59 ml/min COPD (chronic obstructive pulmonary disease) Coronary artery disease COVID-19 vaccine series completed Depression with anxiety Diabetic gastroparesis DM2 (diabetes mellitus, type 2) Encephalopathy Essential (primary) hypertension FCHL (familial combined hyperlipidemia) Hyperlipidemia Hypertensive chronic kidney disease with stage 1 through stage 4 chronic kidney disease, or unspecified chronic kidney disease Increased ammonia level Liver mass Menieres disease Non-alcoholic fatty liver disease Nonalcoholic steatohepatitis Obstructive sleep apnea Pancreatitis Psoriasis Right thyroid nodule Secondary pulmonary arterial hypertension 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 2 diabetes mellitus Thyroid mass Type 2 diabetes mellitus with diabetic polyneuropathy Ulcerative colitis Surgical History (Reviewed 02/05/21 @ 16:12 by Luis Garcia PEOPLESOFT HR DEVELOPER, PEOPLESOFT HR DEVELOPER-C) H/O colectomy H/O coronary artery bypass surgery (05/18/12) H/O sinus surgery H/O total hysterectomy history closed fissure History of cholecystectomy History of coronary artery stent placement (01/12/18) ileostomy Ileostomy status left thumb surgery Family History (Reviewed 02/05/21 @ 16:12 by Luis Garcia PEOPLESOFT HR DEVELOPER, PEOPLESOFT HR DEVELOPER-C) Mother CVA (cerebral vascular accident) Diabetes Brother Heart disease of CAD at 65 Myocardial infarction Pancreatitis Father Cancer lymphomia Lymphoma Grandmother Myocardial infarction of [place] in her 70s Sister COPD (chronic obstructive pulmonary disease) Social History Smoking Status: Former smoker alcohol intake: never substance use type: does not use caffeine: Yes Type: coffee eating out: 1-3 times/week what type of physical activity do you participate in: none seatbelt use: always do you feel safe at home: Yes HPI LEFT HIP Details: Parts of this documentation were recorded by a scribe, this documentation accurately reflects the service provided and the decisions made by me, Dr. Henri Camacho, DO 02/19/21 0763. ASHLEY MÉNDEZ is a 60 year old F here today for F/U after having MRI of the left hip. She has previously seen Dr. Platt for the back and left leg pain. Dr. Platt reviewed MRI of lumbar spine as well as xrays of hip and back and states that the MRI lumbar demonstrates a degenerative disc at L5-S1 but otherwise relatively unremarkable. Patient complains of left groin pain and pain down her whole left leg. It is worse in her groin this is being going on for 2 months now without any known injury no prior problems. She does have a history of ulcerative colitis for which she has taken high-dose steroids in the past for she also has a colostomy she denies any alcoholism scuba diving cocaine use or other conditions such as hypercoagulability that could have caused the avascular necrosis she states this pain starts over her left low back and is over the lateral of the hip groin and radiates down the left leg into her foot. She will get new xrays today. She denies numbness and tingling. She has been using a walker and has been attempting to be nonweightbearing for the last 2 months to minimize her pain she also uses a wheelchair when she is out about She is prescribed a buprenorphine 15 mcg/h transdermal patch by Dr. Avila as well as tramadol, she is also on Plavix and aspirin Ortho Exam General General: Yes no acute distress Neurologic: Yes alert and Yes oriented x3 Psychologic: Yes reasonable and appropriate Left Hip Skin/Wound: No Ecchymosis, No soft tissue swelling and No Erythema Hip: Absent eccymosis, soft tissue swelling or erythema HIP: She does have a colostomy no signs of infection around the hip or back she does have 10 stickers on her low back which she uses for her back pain. Hip range of motion is significantly limited with 0 degrees of internal rotation with groin pain and 60 degrees of external rotation with groin pain she does have intact plantar flexion dorsiflexion palpable pedal pulses intact sensation light touch throughout Supplemental Info 02/19/2021 x-ray left hip: Osteopenic changes noted in the femoral head there does appear to be the beginning stages of some flattening of the superior part of the femoral head, there is a crescent sign on the lateral view 02/14/2021 MRI left hip: Avascular necrosis of left femoral head at the superior posterior aspect 01/14/2021 MRI lumbar spine: Endplate spondylosis L1-L2 bilateral facet arthropathy L5-S1 interval vertebral disc height loss with endplate spondylosis bilateral facet arthropathy right foraminal stenosis compression of right exiting nerve roots central disc herniation L4-L5 and L5-S1 Coding Level of Care Code Off vis,est,level 4 Diagnoses Avascular necrosis of bone of left hip M87.052 Chronic back pain M54.9; G89.29 Type 2 diabetes mellitus with diabetic polyneuropathy E11.42; Z79.4 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 Henri Camacho, DO: Thorough discussion was had with Ashley in regards to her left hip and leg pain. Patient does have avascular necrosis of the hip however this is not the source of her pain radiating down to her foot this is a source likely of her groin pain that is the most severe for her therefore we discussed options for this to include protected weightbearing for 8 weeks as patient states she has already done this over the last 2 months she does not wish to proceed in this rapped we also discussed core decompression with aspiration and injection of bone marrow from her iliac crest, versus total hip arthroplasty we discussed risks benefits and alternatives of both options including risk of need for further surgery if the decompression surgery failed considering the size of the lesion and radiographic findings seem to have progressed from previous images I do not think is unreasonable to proceed with total hip arthroplasty. Patient does however have significant medical comorbidities and we would need to obtain medical clearance from her primary care doctor including holding her aspirin Plavix for 7 days prior to surgery and for the postoperative period while she is on her postoperative anticoagulant for 3 weeks. In addition with her no chronic narcotic use I will need to have comanagement with pain management in regards to her postoperative pain medication they will need to be able to provide postoperative pain medication for us to proceed. Risks, benefits and alternatives of surgery reviewed including but not limited to bleeding, infection, nerve/sciatica , artery and/or tissue damage, fracture, VTE, leg length discrepancy, dislocation, need for hip precautions, continued pain and expected post-operative course. We will also need a CT for preoperative templating and intraoperative robotic arm assistance. Plan Details Other Orders: Orders: HIP, UNI W/ Pelvis 2-3 Views Today M25.552 02/19/21 1319<Electronically signed by Henri Camacho DO>Date Henri Camacho DO Cosigner Signature:Date (if applicable) I have re-examined the patient. There are no clinical changes since date of exam
[2021-04-22 10:56] LABS: International Normalized Ratio 1.1; Prothrombin Time (Protime)PT. 13.4 SECONDS (11.7-14.9)
[2021-04-22 10:57] LABS: Partial Thromboplast Time 31.7 Seconds (24.1-36.2)
[2021-04-22] MEDS: Lactated Ringers 1,000 ML 125 ML IV ×3 (11:00→17:10)
--- NOTE | 2021-04-22 11:30 | HIP_PTH ---
PATIENT: ASHLEY MÉNDEZ LOC: [facility] U#:[id number] AGE/SX: 60/F ROOM: [facility]310 RE04/22/[address]: Dr. Shiva Chandler DO : 1960 BED: 1 DIS: 04/24/2021 SPEC #: [id number] RECD: 04/22/21 14:50 STATUS: ISAAC REReji #: [id number] BLAKE: 04/22/21 11:[address]: Henri Camacho DEPT: SURGICAL PATHOLOGY RECD BY: David Myers ENTERED: 04/23/21 11:44 SP TYPE: TOTAL HIP OTHR DR: DO Dr. Mala Mccracken MD Dr. Joseph Borruso, DO Dr. Prakash Chand, MD Tissues: Hip, NOS Procedures: Decalcification bone/plaque Surgery Specimen Level IV Comments: @ Ordering doctor for DEC edited from to DR.JBORRU Yeu WATERS at 04/23/21 1425 @ Ordering doctor for SUIV edited from to @ by EVELIN at 04/23/21 1425 @ Submitting doctor edited from to DR.JBORRU Yue WATERS at 04/23/21 1425 HEADER OPERATION: ERAS, total hip replacement robotic arm assist PRE-OP DIAGNOSIS: Avascular necrosis bone left hip TISSUE SUBMITTED: Left femoral head MICROSCOPIC DIAGNOSIS Left femoral head, total hip replacement/resection: Femoral head with changes consistent with avascular necrosis. SORIN:katie 04/25/2021 MICROSCOPIC DESCRIPTION Slides are reviewed. GROSS DESCRIPTION Received is one container labeled with the patient's name and designated left femoral head. The specimen consists of a rich femoral head measuring 5 x 4.5 x 4.5 cm. An irregular (geographic) area of eburnation and bone erosion is present measuring 4 x 3.5 cm. The cartilage appears to have from the underlying bone in an area measuring 4 x 3.2 cm. Rn Neonatal sections are submitted in two cassettes after decalcification. / AM:katie 04/23/2021 TC:5 CPT: 60760, 38394
--- NOTE | 2021-04-22 14:06 | PCM.OPRPT ---
Report of Operation Date of Procedure: 04/22/21 Description of Surgical Findings:: Preoperative diagnosis: Left hip avascular necrosis Postoperative diagnosis: Same Procedure: CT-guided Makoplasty assisted left total hip arthroplasty Implants: [place] Accolade II stem size 4, 127 degree neck angle +5 neck length 52 mm Trident II acetabular shell with 30 mm cancellous screw 36 mm ceramic head Anesthesia: General Specimen femoral head for pathology EBL: 200 cc Complications: None Condition: Stable to PACU Indication for procedure: This is a 60-year-old female patient who has avascular necrosis of the left hip with severe pain and failed conservative treatment 2 months of nonweightbearing with walker there is some humeral head collapse on CT scan wish to undergo left total hip arthroplasty she does have multiple medical comorbidities and we did obtain medical cardiac and pulmonology consultation preoperatively for clearance. we did discuss operative versus nonoperative intervention including risks of bleeding, infection , nerve artery tissue damage, need for further surgery, fracture, leg length discrepancy, dislocation, blood clot and need for postoperative physical therapy and postoperative expectations. An informed consent was signed. Procedure: Patient was met in the preoperative holding area once again the operative extremity was identified by both patient and physician and was marked. Patient was met by anesthesia . Anesthesia was started. patient was then positioned in the lateral decubitus position on a well-padded pegboard with an axillary roll. All bony prominences were checked and padded. The patient was prepped and draped in the usual sterile fashion. A timeout was called to ensure the proper patient procedure and extremity were being contemplated. Anatomic landmarks were palpated and marked for a standard posterior lateral approach. Prior to this the ASIS was palpated and 3 fingerbreadths proximal to this 3 pins were placed at a 45 degree angle into the iliac crest with good purchase, stab incisions were made with a 15 blade into the skin prior to placement. The Makoplasty array was then secured. A 10 blade scalpel was used to make a posterior incision through the skin and subcutaneous tissue. retractors were used and electrocautery was used to maintain meticulous hemostasis and dissect full-thickness flaps until the gluteal fascia was reached. The gluteal fascia was incised in line with the gluteal fibers. The bursal tissue was then freed from the underside and a Charnley retractor was placed. The femoral trochanteric checkpoint was placed and leg length was assessed using the trochanteric checkpoint and an EKG lead that was placed on the knee prior to prepping the leg .the fat pad was then elevated off of the external rotators with electrocautery and the external rotators were dissected off of the greater trochanter including the piriformis and were tagged with #1 Ethibond for later repair. The joint capsule opened with posterior trapdoor technique. The hip was surgically dislocated. The measurement on the preoperative CT from the top of the lesser trochanter to the femoral neck cut was marked Hohmann was placed around the lesser trochanter. A neck cutting guide was used to sonia the neck with a Bovie and an oscillating saw was used complete the femoral neck cut. The femoral head was found to have been collapse of the area of avascular necrosis, the femoral head was then removed and sized. We then turned our attention to the acetabulum. A Bovie was used to make a perforation in the anterior joint capsule and a Puentes retractor was placed this was repeated in the 6 o'clock position and a wide ruba was placed there. With a long handled knife the labral and pulvinar tissue were removed. We then registered the acetabulum with the pointing array and confirmed our landmarks. Once the socket was thoroughly prepared and labral tissue and pulvinar was removed we single reamed with the robotic arm. We then used the robotic arm to position the acetabular implant and impacted it into place under robotic guidance. We then proceeded to place a posterior superior screw by drilling first measuring and inserting the screw. We then inserted a trial liner. And turned our attention back to the femur at this point a femoral elevator was used. As well as a pointed wide Hohmann around the lesser trochanter and a Hohmann to help retract the gluteus medius. A box chisel was used to remove excess lateral neck followed by a canal finder and a lateralizing reamer. This was followed by sequential broaches. Attention was made of the version within the canal based on preoperative templating. Once the final broach was seated we then trialed reduced the hip it was determined that a 127 degree neck angle with a + 5mm neck length was the appropriate size. We then checked stability with shuck testing as well as flexion and internal rotation. then proceeded with hip extension and checked leg lengths at the knees and heels as well as with the trochanteric checkpoint and knee EKG lead. At this point trials were removed. A liner was inserted to the cup. The femoral stem was inserted. We re-trialed and then proceeded to impact the femoral head onto the Benson taper. We then surgically reduce the hip check stability again and leg lengths and were satisfied. Betadine rinse was allowed to sit for 5 minutes while everyone changed their gloves. Thorough irrigation was performed. Followed by closure of the external rotators with #2 FiberWire followed by closure of gluteal fascia with #1 Ethibond. 0 Vicryl fat stitches and 2-0 Vicryl subcutaneous stitches and pooja in the skin. A pulls were placed in the pin sites over the iliac crest with Xeroform 4 x 4 and OpSite. dressing was applied to incisional area with Mepilex Ag and an abduction pillow was placed. Patient tolerated the procedure well there was no intraoperative complications all counts were correct and the patient was brought back to the PACU in stable condition
--- NOTE | 2021-04-22 14:11 | RAD_ITS ---
STUDY: X-RAY - PELVIS AND LEFT HIP REASON FOR EXAM: Female, 60 years old. Post Op -- AP both hips on single wendy/lateral of op hip PACU TECHNIQUE: 2 views of the pelvis and hip. COMPARISON: Comparison is made with prior study dated 02/19/2021. FINDINGS: The patient is status post left total hip replacement. There is good alignment. Postoperative soft tissue changes. RAD/Hip Min 2 Views (Portable) IMPRESSION: The patient is status post left hip replacement. There is good alignment. Postoperative soft tissue changes. Electronically Signed: Eric Spencer MD at 15:42 EST ,
[2021-04-22 14:46] LABS: Bedside Glucose 242 mg/dL (70-110)
--- NOTE | 2021-04-22 15:20 | SUR.PHASEI ---
MONITORED ON ETCO2 NASAL CANNULA PER ERAS PROTOCOL.
--- NOTE | 2021-04-22 15:21 | SUR.PHASEI ---
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
--- NOTE | 2021-04-22 16:48 | NURSING ---
pt arrive to unit, drowsy. 2lnc maintained, cspo2 added. snoring noted at times. pt states dary friend and listed visitor will be able to obtain home bipap machine from care. malcom d/i. bedexit maintained.
--- NOTE | 2021-04-22 16:54 | SUR.PHASEI ---
polar care sent upstairs to 310, to be applied.
--- NOTE | 2021-04-22 17:16 | PN.HOSP_ITS ---
Documented by User: Linda Galo NP, ADDICTIONS COUNSELOR ASSISTANT-C 04/22/21 17:51 Subjective Subjective Patient is status post left total hip arthroplasty secondary to left hip avascular necrosis. Patient seen and examined. Hospitalist services consulted for medical management. Patient states diabetes has been under good control. She currently reports 8/10 pain following working with therapy. Objective Data Objective Data Vital Signs: Vital Signs Temp Pulse Resp BP Pulse Ox 97.4 F L 88 16 108/50 L 95 04/22/21 16:38 04/22/21 16:38 04/22/21 16:38 04/22/21 16:38 04/22/21 16:38 Oxygen Flow Rate (L/min) 2 Oxygen Delivery Method Nasal Cannula Weight: 199 lb 8.293 oz Body Mass Index (BMI) 31.2 Intake & Output: Intake and Output for Last 24 Hours 04/20/21 04/21/21 04/22/21 23:59 23:59 23:59 Intake Total 3380.5 / 3380.5 Balance 3380.5 / 3380.5 Lab / Micro Data Result Diagrams: 04/09/21 07:53 04/09/21 07:53 Labs: Laboratory Results - last 24 hr 04/22/21 09:35: POC Glucose 289 H 04/22/21 10:10: PT Cancelled, INR Cancelled, APTT Cancelled 04/22/21 10:35: PT 13.4, INR 1.1, APTT 31.7 04/22/21 14:42: POC Glucose 242 H Micro: Microbiology 04/22/21 09:05 Interface Orders SARS-CoV-2 Antigen (Rapid) - Final 04/09/21 07:53 Swab (Method) Nasal Screen MRSA/MSSA - Final Radiography Diagnostic Testing: Radiology Impression Hip X-Ray 04/22/21 14:11 IMPRESSION: The patient is status post left hip replacement. There is good alignment. Postoperative soft tissue changes. Electronically Signed: Eric Spencer MD at 15:42 EST , Physical Exam Const alert, oriented x3 and no apparent distress Orientation / Consciousness: awake, oriented to person, oriented to place and oriented to time Nutritional Appearance: obese HEENT normocephalic and moist oral mucous membranes Eyes PERRL, EOMs intact bilaterally and conjunctivae normal Neck no lymphadenopathy Resp normal respiratory effort and clear to auscultation bilaterally Cardio regular rate, regular rhythm and no murmurs Peripheral Pulses: pulses 2+ throughout GI normal to inspection, nondistended, normoactive bowel sounds, non-tender and non-distended GI Narrative: Ileostomy in place Extremity normal to inspection Skin no rashes or lesions noted Skin Narrative: Postop dressing intact. Lesions: no lesions Rashes: no rashes Trauma: no lacerations or abrasions Neuro CN's II-XII intact bilaterally, no focal motor deficits, no sensory deficits noted and deep tendon reflexes 2+ bilaterally Psych mental status grossly normal and affect normal Assessment & Plan Assessment/Plan (1) Avascular necrosis of bone of left hip: PLAN: 1. Left hip avascular necrosis with associated debility status post left total hip arthroplasty- Management per surgery. PT/OT. PRN pain regimen. 2. Type 2 diabetes mellitus with muqskomwafxiwi-Mjog-Ujexl with sliding scale insulin. Continue home insulin regimen. Hemoglobin A1c 6.6% on 04/09/21. On Lyrica. 3. CAD-follows with cardiology. Continue medical management. Continue aspirin, statin, Plavix. 4. Chronic kidney disease stage IIIb- recent labs at baseline. Trend BMP. 5. Hypertension-stable, continue HCTZ, isosorbide, metoprolol. 6. Hyperlipidemia-continue statin. 7. ANKITA-on BiPAP. 8. Chronic COPD-as needed albuterol aerosol. 9. Nonalcoholic fatty liver disease/gastroparesis/ulcerative colitis-status post total colectomy with end ileostomy. Follows with GI. 10. Depression/anxiety-on duloxetine. DVT prophylaxis-Eliquis per Ortho This patient was seen by DERIC Gonzales under the supervision of Dr. Ferris. Time spent examining patient, reviewing data and subsequent management of care: 13 Minutes Documented by User: Dr. Castillo Ferris MD 04/22/21 22:01 Subjective Subjective Patient referred by attending Dr. Serra Reason for consultation: Medical management of multiple comorbidities which includes chronic diastolic heart failure, chronic hypoxic respiratory failure, [place], COPD, coronary artery disease and diabetes mellitus and many others HPI: Patient had elective left total hip arthroplasty for left hip vascular necrosis by Dr. Camacho. Patient feels mild lethargy after surgery but she is awake and follows full command. She is having her dinner. Denies chest pain, shortness of breath or dizziness. Patient did not had urine output after surgery but does not feel bladder fullness or suprapubic pain. Objective Data Lab / Micro Data Result Diagrams: 04/09/21 07:53 04/09/21 07:53 Physical Exam Narrative General: Oriented x3, Cooperative, mild lethargy. Awake, morbid obesity BMI 31.2 kg/m? HEENT: Atraumatic, PERRLA, EOMI, Normocephalic Oral: No Gingival or Mucosal Lesions/ Ulcerations Neck: Supple, No JVD, Negative Carotid Bruits Lungs: Air entry diminished in bilateral lung bases. No crepitation/rhonchi Cardiovascular: Regular rate, Regular Rhythm, Normal S1, Normal S2, No murmurs Abdomen: Bowel Sounds Present, Soft, Non Tender, Non-Distended : No bladder fullness. No renal angle tenderness. No suprapubic tenderness. Extremities: No edema, Capillary Refill Less than 3 Seconds Skin: No rashes, No breakdown Musculoskeletal: Left hip surgical dressing is dry. No hematoma/bruise. Neurological: Cranial nerves II-XII grossly intact, DTR 2+/4 and Symmetrical, Neuro grossly intact Psych/Mental Status: Normal Affect, Appropriate. Assessment & Plan Assessment/Plan (1) Avascular necrosis of bone of left hip: PLAN: This patient was seen in conjunction with ADDICTIONS COUNSELOR ASSISTANT, Linda. I have independently interviewed and examined the patient and reviewed pertinent history, examination findings, laboratory and plan of management. I have reviewed the note and agree with the documented findings with the few ad ditional points. In brief, patient is 70-year-old female admitted under orthopedic surgeon Dr. Camacho, hospitalist consult requested for management of multiple medical issues as mentioned below and documented by nurse practitioner. 1. Left hip avascular necrosis: Patient has left total hip arthroplasty. Pain control PT and OT. VT prophylaxis as per orthopedic surgeon. Surgical dressing is dry 2. Coronary artery disease: No chest pain or shortness of breath. Home cardiac medications aspirin Plavix and statin continued 3. Nonalcoholic fatty liver disease and ulcerative colitis: Outpatient follow- up. Patient also has history of ulcerative colitis status post colectomy with end ileostomy. 4. COPD, obstructive sleep apnea on BiPAP: No wheezing or shortness of breath. Continue bronchodilator as needed. BiPAP at night and naps. 5. Chronic kidney stage IIIb, hypertension and dyslipidemia 6. Anxiety and depression Home medication reconciliation done I have discussed my assessment with ADDICTIONS COUNSELOR ASSISTANTLinda and orders have been reviewed. Charges/Coding Visit Charges Office Visits / Consults: 40276 IP Consult L3
[2021-04-22] MEDS: Senna/Docusate Sodium 1 Tablet 2 TABLET PO (20:08)
[2021-04-22] MEDS: Atorvastatin Calcium 80 MG Tablet PO (20:08)
[2021-04-22] MEDS: traZODone 50 MG Tablet PO (20:09)
[2021-04-22] MEDS: Isosorbide DN 30 MG Tablet PO (20:09)
[2021-04-22] MEDS: Metoprolol Tartrate 25 MG Tablet 75 MG PO (20:10)
[2021-04-22] MEDS: oxyCODONE 5 MG Tablet PO (20:11)
[2021-04-22] MEDS: Pregabalin 75 MG Capsule PO (20:14)
[2021-04-22 20:46] LABS: Bedside Glucose 330 mg/dL (70-110)
[2021-04-23] VITALS (10 sets, daily range): BP systolic 117–125; BP diastolic 52–58; PULSE 76–88; RESP 16–18; TEMP 36.7–37.3; O2SAT 94–100
[2021-04-23] MEDS: oxyCODONE 5 MG Tablet PO ×3 (00:58→12:00)
[2021-04-23] MEDS: Lactated Ringers 1,000 ML 125 ML IV (00:58)
[2021-04-23] MEDS: Insulin Lispro 100 UNIT/ML INSULN.PEN SC ×3 (05:59→21:04)
[2021-04-23] MEDS: Acetaminophen 500 MG Tablet 1000 MG PO (05:59)
[2021-04-23 06:16] LABS: Bedside Glucose 271 mg/dL (70-110)
[2021-04-23 06:34] LABS: Mean Corpuscular Hgb 26.9 pg (27.0-32.0); Mean Corpuscular Volume 86.8 fL (81-99); Mean Platelet Vol. 12.8 fl (6.2-12.0); Platelet Count 151 K/mm3 (150-450); RBC Distribution Width CV 15.4 % (11.6-14.6); RBC Distribution Width SD 48.6 fl (35.1-43.9); Red Blood Count 3.34 M/mm3 (4.2-5.4); White Blood Count 13.2 K/mm3 (4.4-11.0)
[2021-04-23 06:58] LABS: Anion Gap 6 (5-15); BUN 30 mg/dL (7-18); BUN/Creat Ratio 18.3 RATIO (10-20); Calcium,Total 8.3 mg/dL (8.5-10.1); Chloride 104 mmol/L (98-107); Creatinine, Serum 1.64 mg/dL (0.55-1.02); EST Glomerular Filtration Rate 34 mL/min (>60); Est Glom Filt Rate - Afr Amer 41 mL/min (>60); Estimated Creatinine Clearance 34.59 ml/min; Glucose 280 mg/dL (74-106); Potassium 4.6 mmol/L (3.5-5.1); Sodium Level 137 mmol/L (136-145)
--- NOTE | 2021-04-23 07:59 | PHA.PHARE_ITS ---
Consult Pharmacy has been consulted to manage selected antiobiotic: Vancomycin Type of Consult: New start Suspected Infection: Other Prior Doses of Antibiotics Received/Current Regimen: received vancomycin 1250mg x1 preop yesterday starting at 10:45 Labs: Sodium 137 mmol/L (136-145) 04/23/21 06:00 Potassium 4.6 mmol/L (3.5-5.1) 04/23/21 06:00 Chloride 104 mmol/L (98-107) 04/23/21 06:00 Carbon Dioxide 27.0 mmol/L (21.0-32.0) 04/23/21 06:00 Anion Gap 6 (5-15) 04/23/21 06:00 BUN 30 mg/dL (7-18) H 04/23/21 06:00 Creatinine 1.64 mg/dL (0.55-1.02) H 04/23/21 06:00 Est GFR (MDRD) Af Amer 41 mL/min (>60) L 04/23/21 06:00 Est GFR (MDRD) Non-Af 34 mL/min (>60) L 04/23/21 06:00 BUN/Creatinine Ratio 18.3 RATIO (10-20) 04/23/21 06:00 Glucose 280 mg/dL (74-106) H 04/23/21 06:00 Microbiology: Microbiology 04/22/21 09:05 Interface Orders SARS-CoV-2 Antigen (Rapid) - Final 04/09/21 07:53 Swab (Method) Nasal Screen MRSA/MSSA - Final Weight used for dosin.5 kg Estimated Creatinine Clearance: 41 ml/min Goal Trough: 10-15 mcg/mL Pharmacy Plan for Drug Dosing: Pharmacy was consulted today to dose/monitor vancomycin. The patient already received the standard loading dose of 15mg/kg preop yesterday so will continue today with 1250mg IV q24h per [facility] dosing protocol. A trough will be ordered to be drawn before the 3rd dose tomorrow. The patient's CrCl of 41 ml/min was calculated using an adjusted body weight of 73.2kg. Pharmacy Service will continue to monitor and adjust dosing as required. Follow-Up Labs: Trough Vancomycin Labs to be done on [date and time ordered]: 04/24/21 10:30
[2021-04-23] MEDS: Insulin Lispro 100 UNIT/ML INSULN.PEN 60 UNIT SC ×3 (08:22→18:08)
[2021-04-23] MEDS: HYDROmorphone 0.5 MG/0.5 ML SYRINGE IV ×3 (08:22→21:02)
[2021-04-23] MEDS: APIXABAN 2.5 MG TABLET PO ×2 (08:24→21:01)
[2021-04-23] MEDS: Metoprolol Tartrate 25 MG Tablet 75 MG PO ×2 (08:25→21:01)
[2021-04-23] MEDS: Pantoprazole Sodium 40 MG Tablet PO (08:26)
[2021-04-23] MEDS: hydroCHLOROthiazide 25 MG Tablet PO (08:26)
[2021-04-23] MEDS: Isosorbide DN 30 MG Tablet PO ×2 (08:26→21:01)
[2021-04-23] MEDS: Senna/Docusate Sodium 1 Tablet 2 TABLET PO ×2 (08:26→21:01)
[2021-04-23] MEDS: DULoxetine Hcl 30 MG Capsule 90 MG PO (08:26)
--- NOTE | 2021-04-23 08:58 | PN.HOSP_ITS ---
Subjective Subjective Has pain in left hip. Was having difficulty getting her leg into the bed after going to the restroom today. Objective Data Objective Data Vital Signs: Vital Signs Temp Pulse Resp BP Pulse Ox 36.8 C 76 16 117/57 L 100 04/23/21 04:38 04/23/21 08:25 04/23/21 04:38 04/23/21 04:38 04/23/21 04:38 Oxygen Flow Rate (L/min) 2 Oxygen Delivery Method Nasal Cannula Weight: 90.5 kg Body Mass Index (BMI) 31.2 Intake & Output: Intake and Output for Last 24 Hours 04/21/21 04/22/21 04/23/21 23:59 23:59 23:59 Intake Total 3380.5 / 3380.5 1875 / 1875 Output Total 1875 / 1875 Balance 3380.5 / 3380.5 0 / 0 Lab / Micro Data Result Diagrams: 04/23/21 06:00 04/23/21 06:00 Labs: Laboratory Results - last 24 hr 04/22/21 09:35: POC Glucose 289 H 04/22/21 10:10: PT Cancelled, INR Cancelled, APTT Cancelled 04/22/21 10:35: PT 13.4, INR 1.1, APTT 31.7 04/22/21 14:42: POC Glucose 242 H 04/22/21 20:06: POC Glucose 330 H 04/23/21 05:55: POC Glucose 271 H 04/23/21 06:00: WBC 13.2 H, RBC 3.34 L, Hgb 9.0 L, Hct 29.0 L, MCV 86.8, MCH 26.9 L, MCHC 31.0 L, RDW Std Deviation 48.6 H, RDW Coeff of Jan 15.4 H, Plt Count 151, MPV 12.8 H 04/23/21 06:00: Sodium 137, Potassium 4.6, Chloride 104, Carbon Dioxide 27.0, Anion Gap 6, BUN 30 H, Creatinine 1.64 H, Estim Creat Clear Calc 34.59, Est GFR (MDRD) Af Amer 41 L, Est GFR (MDRD) Non-Af 34 L, BUN/Creatinine Ratio 18.3, Glucose 280 H, Calcium 8.3 L Micro: Microbiology 04/22/21 09:05 Interface Orders SARS-CoV-2 Antigen (Rapid) - Final 04/09/21 07:53 Swab (Method) Nasal Screen MRSA/MSSA - Final Radiography Diagnostic Testing: Radiology Impression Hip X-Ray 04/22/21 14:11 IMPRESSION: The patient is status post left hip replacement. There is good alignment. Postoperative soft tissue changes. Electronically Signed: Eric Spencer MD at 15:42 EST , Physical Exam Const alert and no apparent distress Constitutional Narrative: Required my assistance to get her left leg from sitting into the bed. Exam Limitations: no limitations and altered mental status HEENT Head and Scalp: normocephalic Resp normal respiratory effort, no retractions, no use of accessory muscles and clear to auscultation bilaterally Cardio regular rate, regular rhythm, S1 normal heart sound and S2 normal heart sound GI normal to inspection, nondistended, normoactive bowel sounds, soft to palpation, non-tender and non-distended Assessment & Plan Assessment/Plan (1) Avascular necrosis of bone of left hip: PLAN: 1. Left hip avascular necrosis: Patient had left total hip arthroplasty on 04/22. Pain control PT and OT. VT prophylaxis as per orthopedic surgeon. Surgical dressing is dry 2. Leukocytosis no fever, likely reactive given recent surgery 3. Anemia Hg dropped from 12.7 on 04/09 to 9 no need for transfusions outpt follow up 4. Chronic condition: complicate care and recovery * Coronary artery disease: No chest pain or shortness of breath. Home cardiac medications aspirin Plavix and statin continued * Nonalcoholic fatty liver disease and ulcerative colitis: Outpatient follow-up. Patient also has history of ulcerative colitis status post colectomy with end ileostomy. * COPD, obstructive sleep apnea on BiPAP: No wheezing or shortness of breath. Continue bronchodilator as needed. BiPAP at night and naps. * Chronic kidney stage IIIb, hypertension and dyslipidemia * Anxiety and depression Medically stable for discharge. Will follow peripherally. Call with questions. Charges/Coding Visit Charges Inpatient E&M: 69679 Subs Hosp L2
--- NOTE | 2021-04-23 09:40 | PCM.PN.ORT ---
Subjective Subjective Patient seen and examined. Complain of pain. She denies shortness of breath or chest pain nausea or vomiting. She is having some difficulty ambulating getting in and out of bed. Objective Data Objective Data Vital Signs: Vital Signs Temp Pulse Resp BP Pulse Ox 98.3 F 76 16 117/57 L 100 04/23/21 04:38 04/23/21 08:25 04/23/21 04:38 04/23/21 04:38 04/23/21 04:38 Oxygen Flow Rate (L/min) 2 Oxygen Delivery Method Nasal Cannula Weight: 199 lb 8.293 oz Body Mass Index (BMI) 31.2 Intake & Output: Intake and Output for Last 24 Hours 04/21/21 04/22/21 04/23/21 23:59 23:59 23:59 Intake Total 3380.5 / 3380.5 2875 / 2875 Output Total 1875 / 1875 Balance 3380.5 / 3380.5 1000 / 1000 Lab / Micro Data Result Diagrams: 04/23/21 06:00 04/23/21 06:00 Labs: Laboratory Results - last 24 hr 04/22/21 09:35: POC Glucose 289 H 04/22/21 10:10: PT Cancelled, INR Cancelled, APTT Cancelled 04/22/21 10:35: PT 13.4, INR 1.1, APTT 31.7 04/22/21 14:42: POC Glucose 242 H 04/22/21 20:06: POC Glucose 330 H 04/23/21 05:55: POC Glucose 271 H 04/23/21 06:00: WBC 13.2 H, RBC 3.34 L, Hgb 9.0 L, Hct 29.0 L, MCV 86.8, MCH 26.9 L, MCHC 31.0 L, RDW Std Deviation 48.6 H, RDW Coeff of Jan 15.4 H, Plt Count 151, MPV 12.8 H 04/23/21 06:00: Sodium 137, Potassium 4.6, Chloride 104, Carbon Dioxide 27.0, Anion Gap 6, BUN 30 H, Creatinine 1.64 H, Estim Creat Clear Calc 34.59, Est GFR (MDRD) Af Amer 41 L, Est GFR (MDRD) Non-Af 34 L, BUN/Creatinine Ratio 18.3, Glucose 280 H, Calcium 8.3 L Micro: Microbiology 04/22/21 09:05 Interface Orders SARS-CoV-2 Antigen (Rapid) - Final 04/09/21 07:53 Swab (Method) Nasal Screen MRSA/MSSA - Final Radiography Diagnostic Testing: Radiology Impression Hip X-Ray 04/22/21 14:11 IMPRESSION: The patient is status post left hip replacement. There is good alignment. Postoperative soft tissue changes. Electronically Signed: Eric Spencer MD at 15:42 EST , Physical Exam Const alert and oriented x3 General Appearance: cooperative Extremity Extremity Narrative: Dressing with minimal drainage remains sealed compartments soft neurovascular intact EHL tibialis anterior gastrocsoleus she is able to extend the knee intact sensation light touch throughout the leg palpable pedal pulses Assessment & Plan Assessment/Plan (1) Status post total hip replacement, left: PLAN: Postop day #1 left total hip arthroplasty for avascular necrosis. PT OT weightbearing as tolerated with hip precautions. Patient would benefit from continued physical therapy in the hospital prior to returning home. She will continue to be monitored medically multiple comorbidities hospitalist consulted and following, will follow labs tomorrow am. Eliquis 2.5 mg twice daily for 3 weeks. We will continue baseline transdermal narcotic prescription in addition to oxycodone for the acute postoperative pain this was discussed with Dr. Avila. Patient will likely be discharged home tomorrow morning and then follow-up in 2 weeks.
--- NOTE | 2021-04-23 09:52 | PCM.DC ---
Discharge Instructions Diet Discharge Diet: 2000 Calorie Control Diet (High sugar diet increases risk of infection) Activity Weight Bearing Status: Weight bearing as tolerated Dressing / Incision Additional Dressing/Incision Instructions:: Do not shower 72hrs. Begin daily showering warm water antibacterial soap postop day #3( 72hrs Post-operatively) and then daily. Leave the dressing on for 72 hours postoperatively then may remove prior to first shower and change dressing daily after this until no drainage for 2 consecutive days then may leave open to air. Follow hip precautions that were reviewed in hospital. Wear compression stockings, may remove at night. Start physical therapy as directed in hospital. Follow prescriptions instructions do not take any other pain medication or differ dosing without consulting your physician. Do not take Plavix until the completion of Eliquis prescription then may resume the day after. call Dr. Camacho's office with any concerns. Follow Up Care Please Follow Up With: Henri Camacho DO When: 2 weeks Test Results: Test results from this visit will be discussed in further detail at your follow-up appointment, if applicable. Discharge Plan Admission Admit Date/Time: 04/22/21 08:48 Attending Provider: Shiva Chandler Primary Care Provider: Mala Mcgrath Consulting Providers: Castillo Ferris Discharge Orders/Prescriptions Prescriptions: New oxycodone 5 mg Tablet 5 - 10 mg PO Q4H PRN PRN (Reason: Pain Score 4-10) 7 Days Qty: 60 RF: 0 Eliquis 2.5 mg Tablet 2.5 mg PO BID Qty: 42 RF: 0 Continued buprenorphine 15 mcg/hour patch weekly 1 patch TD SA RF: 0 hydrochlorothiazide 25 mg tablet 25 mg PO DAILY Qty: 90 RF: 3 pantoprazole 40 mg tablet,delayed release (DR/EC) 40 mg PO DAILY Qty: 90 RF: 3 (DME) Wheel Chair See Rx Instructions .Route .MEDSUPPLY Qty: 1 RF: 0 (DME) FreeStyle Allison 2 Sensor Kit See Rx Instructions .ROUTE .MEDSUPPLY Qty: 2 RF: 11 ondansetron 4 mg tablet,disintegrating 4 mg PO Q8H PRN (Reason: nausea and vomiting) Qty: 30 RF: 0 Lantus Solostar U-100 Insulin 100 unit/mL (3 mL) insulin pen 50 unit subcut BID RF: 0 duloxetine 30 mg capsule,delayed release(DR/EC) 90 mg PO DAILY RF: 0 (DME) pen needle, diabetic [BD Ultra-Fine Key Pen Needle] 32 gauge x 5/32 needle See Rx Instructions .ROUTE .MEDSUPPLY Qty: 200 RF: 8 acetaminophen 325 MG tablet 650 mg PO Q6H PRN PRN (Reason: Pain Score 1-10/Temp > 100.7 F) RF: 0 dicyclomine 20 mg tablet 20 mg PO 4X/DAY PRN (Reason: abdominal cramps) Qty: 0 RF: 0 metoprolol tartrate 50 mg tablet 75 mg PO BID RF: 0 aspirin 81 mg Tablet,Delayed Release (Dr/Ec) 81 mg PO DAILY RF: 0 trazodone 50 mg tablet 50 mg PO QHS RF: 0 vitamin E (dl, acetate) 180 mg (400 unit) capsule 400 mg PO DAILY RF: 0 ursodiol 300 mg capsule 300 mg PO BID RF: 0 metoclopramide HCl [Reglan] 5 mg Tablet 5 mg PO DAILY PRN (Reason: reflux) RF: 0 baclofen 10 mg Tablet 10 mg PO BID RF: 0 insulin lispro [Humalog KwikPen Insulin] 100 unit/mL Insulin Pen 60 unit SUBCUT TID RF: 0 atorvastatin 80 mg tablet 80 mg PO QHS Qty: 90 RF: 3 isosorbide dinitrate 30 mg tablet 30 mg PO BID Qty: 60 RF: 11 pregabalin 75 mg capsule 75 mg PO BID Qty: 60 RF: 1 Held tramadol 50 mg tablet 50 mg PO BID RF: 0 Hold Instructions: Do not mix with oxycodone, can transition back to tramadol when pain allows. clopidogrel 75 mg tablet 75 mg PO DAILY RF: 0 Hold Instructions: Resume the day after completion of Eliquis Referrals / Follow Up: Mala Mcgrath MD [Primary Care Provider] -
[2021-04-23] MEDS: Pregabalin 75 MG Capsule PO ×2 (10:54→21:01)
[2021-04-23 11:21] LABS: Bedside Glucose 195 mg/dL (70-110)
--- NOTE | 2021-04-23 11:23 | CASEMGMT ---
TC to [facility] pharmacy, spoke with Atilio Sethi and pt has no cost.
--- NOTE | 2021-04-23 11:30 | NURSING ---
Called RX about vanco med that is not on the floor.
--- NOTE | 2021-04-23 11:34 | CASEMGMT ---
SVETLANA RAINEY Assessment: Face to Face with pt for initial transition planning/care coordination assessment. SVETLANA RAINEY introduced self and role at [facility], pt voices understanding and consents to assessment. Pt is A/O x4 and answers all questions appropriately at this time. Pt sitting up in chair with sig other at bedside. Care providers, pharmacy, and demographics verified/updated. Admitting Dx: Lt Total Hip Robotic PCP:Alcides Specialists:Adriana, pain mgmt; Borruceleste, ortho; Friend, GI; Jacky, nephro; Testrake, pod; Esdras, endo; Keven, pulm Preferred Pharmacy: [facility] Insurance: KENIA Travis Prescription Benefit: yes LW/HPOA: Pt has a LW/DPOA on file at [facility] and her DPOA is isaac Ware. LNOK: isaac Ware other Living Arrangements: Pt lives alone in a ground level apt with no steps to enter. Pt reports she was I in ADL's and denies concerns at home. Transportation: Pt drives self and denies concerns with transportation typically. Pt sig other will transport her until she is able to drive again. DME/HHC/SNF: Pt has a rollator, walker, shower seat, cane, transport w/c, reg w/c, bipap and O2 at hs at 2L through [employer]. Pt has had HHC through [facility] and denies SNF stays. Pt states no concerns with going home at time of dc. Pt has her outpt therapy set up through [facility] on Wednesday. Pt states no further concerns/needs. CM to follow. Advised pt to ask CM if any further question/concerns/needs arise, voices understanding. Pt Goal: Home with outpt therapy Plan: Home with outpt therapy
[2021-04-23 16:45] LABS: Bedside Glucose 93 mg/dL (70-110)
[2021-04-23] MEDS: Atorvastatin Calcium 80 MG Tablet PO (21:01)
[2021-04-23] MEDS: traZODone 50 MG Tablet PO (21:02)
[2021-04-23] MEDS: 0.9% Saline Lock 10 ML Syringe IV (21:06)
[2021-04-23 21:41] LABS: Bedside Glucose 186 mg/dL (70-110)
[2021-04-24] VITALS (8 sets, daily range): BP systolic 113–127; BP diastolic 54–56; PULSE 82–90; RESP 16–18; TEMP 36.7–37.2; O2SAT 85–98
[2021-04-24] MEDS: oxyCODONE 5 MG Tablet PO ×3 (02:28→11:06)
[2021-04-24] MEDS: Insulin Lispro 100 UNIT/ML INSULN.PEN SC ×2 (06:10→11:09)
[2021-04-24 06:15] LABS: Bedside Glucose 222 mg/dL (70-110)
[2021-04-24 06:40] LABS: Hematocrit 26.7 % (37-47); Hemoglobin 8.3 g/dL (12.0-15.0); Mean Corp Hgb Conc 31.1 g/dL (32-36); Mean Corpuscular Hgb 26.9 pg (27.0-32.0); Mean Corpuscular Volume 86.4 fL (81-99); Mean Platelet Vol. 12.7 fl (6.2-12.0); Platelet Count 123 K/mm3 (150-450); RBC Distribution Width CV 15.6 % (11.6-14.6); RBC Distribution Width SD 49.1 fl (35.1-43.9); Red Blood Count 3.09 M/mm3 (4.2-5.4); White Blood Count 10.6 K/mm3 (4.4-11.0)
[2021-04-24] MEDS: Insulin Lispro 100 UNIT/ML INSULN.PEN 60 UNIT SC ×2 (09:11→12:56)
[2021-04-24] MEDS: Pantoprazole Sodium 40 MG Tablet PO (09:13)
[2021-04-24] MEDS: DULoxetine Hcl 30 MG Capsule 90 MG PO (09:13)
[2021-04-24] MEDS: Isosorbide DN 30 MG Tablet PO (09:14)
[2021-04-24] MEDS: hydroCHLOROthiazide 25 MG Tablet PO (09:14)
[2021-04-24] MEDS: APIXABAN 2.5 MG TABLET PO (09:15)
[2021-04-24] MEDS: Metoprolol Tartrate 25 MG Tablet 75 MG PO (09:15)
[2021-04-24] MEDS: Pregabalin 75 MG Capsule PO (09:15)
--- NOTE | 2021-04-24 10:15 | PCM.DC.SUM ---
Providers Date of Admission: 04/22/21 Primary Care Physician: Dr. Mala Mcgrath MD Consultations 04/22/21 14:01 Consult: Hospitalist Routine Consulting Provider: Castillo Ferris Reason for Consult: post op medical management; please keep strict glycemic control. EMERGENT Consult: No MD Notified: Yes Date Notified: 04/22/21 Time Notified: 17:13 Method of Notification: Text Reason For Visit: LT TOTAL HIP ROBOT Diagnosis Discharge Diagnosis (1) Status post total hip replacement, left: Status: Acute Code(s): Z96.642 - Presence of left artificial hip joint Medications at Discharge Home Medications buprenorphine 15 mcg/hour weekly transdermal patch 1 patch TD SA 06/14/19 acetaminophen 650 mg PO Q6H PRN PRN tab 02/19/20 Wheel Chair #1 ea 04/17/20 hydrochlorothiazide 25 mg tablet 25 mg PO DAILY #90 tablet 06/20/20 pantoprazole 40 mg tablet,delayed release 40 mg PO DAILY #90 tablet 06/20/20 ondansetron 4 mg disintegrating tablet 4 mg PO Q8H PRN #30 tab 09/20/20 atorvastatin 80 mg tablet 80 mg PO QHS #90 tab 10/22/20 tramadol 50 mg tablet 50 mg PO BID 11/27/20 dicyclomine 20 mg PO 4X/DAY PRN #0 tab 01/08/21 duloxetine 30 mg capsule,delayed release 90 mg PO DAILY cap 01/17/21 flash glucose sensor #2 ea 01/17/21 insulin glargine 100 unit/mL (3 mL) subcutaneous pen 50 unit SUBCUT BID ml 01/17/21 isosorbide dinitrate 30 mg tablet 30 mg PO BID #60 tab 01/28/21 metoprolol tartrate 50 mg tablet 75 mg PO BID 02/05/21 pen needle, diabetic 32 gauge x 5/32 #200 ea 03/21/21 aspirin 81 mg PO DAILY 04/08/21 trazodone 50 mg PO QHS 04/08/21 vitamin E (dl, acetate) 400 mg PO DAILY 04/08/21 pregabalin 75 mg capsule 75 mg PO BID #60 cap 04/16/21 baclofen 10 mg PO BID 04/22/21 clopidogrel 75 mg PO DAILY 04/22/21 insulin lispro [Humalog KwikPen Insulin] 60 unit SUBCUT TID 04/22/21 metoclopramide HCl [Reglan] 5 mg PO DAILY PRN 04/22/21 ursodiol 300 mg PO BID 04/22/21 apixaban [Eliquis] 2.5 mg PO BID #42 tab 04/23/21 oxycodone 5 - 10 mg PO Q4H PRN PRN 7 Days #60 tab 04/23/21 Hospital Course Operations total hip replacement (Left) Summary of Care Provided Hospital Course: Patient was admitted to the hospital postoperative for left total hip arthroplasty secondary to avascular necrosis causing increasing/progressive pain despite conservative treatment. Decision was then made to undergo surgical intervention at that time. Patient underwent procedure on April 22 without any intraoperative complications. Following short stay in the postanesthesia care unit patient was then taken to the floor for medical management due to her long history of comorbidities. While on the floor patient overall had good control of her pain. She did have elevated sugars and saw slight drop in her hemoglobin and her kidney function that was continually followed by hospitalist. She did have multiple visits with occupational therapy as well as physical therapy for both transfers as well as gait training. Patient was able to perform these with min assist. She did require oxygen which she has been using as needed post Covid over the past year. Otherwise it was felt that patient was physically able to perform necessary ADLs with minimal assistance at home and other comorbidities were stable and therefore patient was able to be discharged. Physical Exam Narrative Patient is a pleasant 60 year old female seen today post-op day 2 for left hip total arthroplasty. Patient is mildly obese female who is alert and oriented x 3 and is currently having mild to moderate pains in the left hip during ambulation. Const alert and oriented x3 General Appearance: cooperative Extremity Left Lower Extremity: hip joint inspection (occlusive dressing in place. Clean and dry without saturation), palpation (mild tenderness on palpation over the incision site. She has soft compartments throughout the lower extremity), ROM, neurovascular exam (normal sensation to light touch. ), other (negative homans. She has intact motor function of the ankle/foot/toes. ) and special tests Skin General Skin Exam: no breakdown; Negative for ecchymosis or erythema Neuro Speech: speech normal Gait (Neuro): assistive device used walker and other slow/guarded gait Weight / BMI Weight Weight: 199 lb 8.293 oz Body Mass Index (BMI) 31.2 ABG / Lab / Microbiology Data Result Diagrams: 04/24/21 05:43 04/24/21 10:30 Laboratory: Laboratory Results - last 24 hr 04/23/21 11:12: POC Glucose 195 H 04/23/21 16:41: POC Glucose 93 04/23/21 21:03: POC Glucose 186 H 04/24/21 05:43: WBC 10.6, RBC 3.09 L, Hgb 8.3 L, Hct 26.7 L, MCV 86.4, MCH 26.9 L, MCHC 31.1 L, RDW Std Deviation 49.1 H, RDW Coeff of Jan 15.6 H, Plt Count 123 L, MPV 12.7 H 04/24/21 06:09: POC Glucose 222 H Microbiology: Microbiology 04/22/21 09:05 Interface Orders SARS-CoV-2 Antigen (Rapid) - Final 04/09/21 07:53 Swab (Method) Nasal Screen MRSA/MSSA - Final D/C Instructions Discharge Diet: 2000 Calorie Control Diet (High sugar diet increases risk of infection) Weight Bearing Status: Weight bearing as tolerated Additional Dressing/Incision Instructions: Do not shower 72hrs. Begin daily showering warm water antibacterial soap postop day #3( 72hrs Post-operatively) and then daily. Leave the dressing on for 72 hours postoperatively then may remove prior to first shower and change dressing daily after this until no drainage for 2 consecutive days then may leave open to air. Follow hip precautions that were reviewed in hospital. Wear compression stockings, may remove at night. Start physical therapy as directed in hospital. Follow prescriptions instructions do not take any other pain medication or differ dosing without consulting your physician. Do not take Plavix until the completion of Eliquis prescription then may resume the day after. call Dr. Camacho's office with any concerns. Please Follow Up With: Henri Camacho DO When: 2 weeks Meaningful Use Info Meaningful Use Diagnoses (Choose all that apply): None applicable Discharge Plan Admission Admit Date/Time: 04/22/21 08:48 Attending Provider: Shiva Chandler Primary Care Provider: Mala Mcgrath Consulting Providers: Castillo Ferris Discharge Orders/Prescriptions Prescriptions: New oxycodone 5 mg Tablet 5 - 10 mg PO Q4H PRN PRN (Reason: Pain Score 4-10) 7 Days Qty: 60 RF: 0 Eliquis 2.5 mg Tablet 2.5 mg PO BID Qty: 42 RF: 0 Continued buprenorphine 15 mcg/hour patch weekly 1 patch TD SA RF: 0 hydrochlorothiazide 25 mg tablet 25 mg PO DAILY Qty: 90 RF: 3 pantoprazole 40 mg tablet,delayed release (DR/EC) 40 mg PO DAILY Qty: 90 RF: 3 (DME) Wheel Chair See Rx Instructions .Route .MEDSUPPLY Qty: 1 RF: 0 (DME) FreeStyle Allison 2 Sensor Kit See Rx Instructions .ROUTE .MEDSUPPLY Qty: 2 RF: 11 ondansetron 4 mg tablet,disintegrating 4 mg PO Q8H PRN (Reason: nausea and vomiting) Qty: 30 RF: 0 Lantus Solostar U-100 Insulin 100 unit/mL (3 mL) insulin pen 50 unit subcut BID RF: 0 duloxetine 30 mg capsule,delayed release(DR/EC) 90 mg PO DAILY RF: 0 (DME) pen needle, diabetic [BD Ultra-Fine Key Pen Needle] 32 gauge x 5/32 needle See Rx Instructions .ROUTE .MEDSUPPLY Qty: 200 RF: 8 acetaminophen 325 MG tablet 650 mg PO Q6H PRN PRN (Reason: Pain Score 1-10/Temp > 100.7 F) RF: 0 dicyclomine 20 mg tablet 20 mg PO 4X/DAY PRN (Reason: abdominal cramps) Qty: 0 RF: 0 metoprolol tartrate 50 mg tablet 75 mg PO BID RF: 0 aspirin 81 mg Tablet,Delayed Release (Dr/Ec) 81 mg PO DAILY RF: 0 trazodone 50 mg tablet 50 mg PO QHS RF: 0 vitamin E (dl, acetate) 180 mg (400 unit) capsule 400 mg PO DAILY RF: 0 ursodiol 300 mg capsule 300 mg PO BID RF: 0 metoclopramide HCl [Reglan] 5 mg Tablet 5 mg PO DAILY PRN (Reason: reflux) RF: 0 baclofen 10 mg Tablet 10 mg PO BID RF: 0 insulin lispro [Humalog KwikPen Insulin] 100 unit/mL Insulin Pen 60 unit SUBCUT TID RF: 0 atorvastatin 80 mg tablet 80 mg PO QHS Qty: 90 RF: 3 isosorbide dinitrate 30 mg tablet 30 mg PO BID Qty: 60 RF: 11 pregabalin 75 mg capsule 75 mg PO BID Qty: 60 RF: 1 Held tramadol 50 mg tablet 50 mg PO BID RF: 0 Hold Instructions: Do not mix with oxycodone, can transition back to tramadol when pain allows. clopidogrel 75 mg tablet 75 mg PO DAILY RF: 0 Hold Instructions: Resume the day after completion of Eliquis Referrals / Follow Up: Mala Mcgrath MD [Primary Care Provider] - Disposition Disposition (needs filled in before D/C Order can be placed): Home, Self Care
[2021-04-24 11:02] LABS: ALB/GLOB Ratio 0.7 RATIO (0.9-2.4); AST(SGOT) 21 U/L (15-37); Alanine Aminotransfer ALT/SGPT 18 U/L (13-56); Albumin, Serum 2.7 g/dL (3.2-5.0); Alkaline Phosphatase 127 U/L (45-117); Anion Gap 7 (5-15); BUN 30 mg/dL (7-18); BUN/Creat Ratio 16.6 RATIO (10-20); Calcium,Total 8.9 mg/dL (8.5-10.1); Chloride 102 mmol/L (98-107); Creatinine, Serum 1.81 mg/dL (0.55-1.02); EST Glomerular Filtration Rate 30 mL/min (>60); Est Glom Filt Rate - Afr Amer 36 mL/min (>60); Estimated Creatinine Clearance 31.34 ml/min; Globulin 4.1 g/dL (2.2-4.2); Glucose 273 mg/dL (74-106); Potassium 3.7 mmol/L (3.5-5.1); Protein, Total 6.8 g/dL (6.4-8.2); Sodium Level 136 mmol/L (136-145)
[2021-04-24 11:12] LABS: Vancomycin, Trough Level 10.1 ug/mL (5.0-15.0)
[2021-04-24 11:15] LABS: Bedside Glucose 265 mg/dL (70-110)
--- NOTE | 2021-04-24 12:25 | PN.HOSP_ITS ---
Subjective Subjective Increased leg pain today. Has some EDGAR, but tolerating 2l/m NC. Objective Data Objective Data Vital Signs: Vital Signs Temp Pulse Resp BP Pulse Ox 37.2 C 89 18 113/56 L 85 04/24/21 09:20 04/24/21 09:20 04/24/21 09:20 04/24/21 09:20 04/24/21 09:55 Oxygen Flow Rate (L/min) [ 2 AMBULATING with Oxygen #1] Oxygen Flow Rate (L/min) [At 2 REST with Oxygen] Oxygen Flow Rate (L/min) 2 Oxygen Delivery Method Nasal Cannula Weight: 90.5 kg Body Mass Index (BMI) 31.2 Intake & Output: Intake and Output for Last 24 Hours 04/22/21 04/23/21 04/24/21 23:59 23:59 23:59 Intake Total 3380.5 / 3380.5 3500 / 3850 550 / 550 Output Total 1875 / 1875 Balance 3380.5 / 3380.5 1625 / 1975 550 / 550 Lab / Micro Data Result Diagrams: 04/24/21 05:43 04/24/21 10:30 Labs: Laboratory Results - last 24 hr 04/23/21 16:41: POC Glucose 93 04/23/21 21:03: POC Glucose 186 H 04/24/21 05:43: WBC 10.6, RBC 3.09 L, Hgb 8.3 L, Hct 26.7 L, MCV 86.4, MCH 26.9 L, MCHC 31.1 L, RDW Std Deviation 49.1 H, RDW Coeff of Jan 15.6 H, Plt Count 123 L, MPV 12.7 H 04/24/21 06:09: POC Glucose 222 H 04/24/21 10:30: Vancomycin Trough 10.1 04/24/21 10:30: Sodium 136, Potassium 3.7, Chloride 102, Carbon Dioxide 27.0, Anion Gap 7, BUN 30 H, Creatinine 1.81 H, Estim Creat Clear Calc 31.34, Est GFR (MDRD) Af Amer 36 L, Est GFR (MDRD) Non-Af 30 L, BUN/Creatinine Ratio 16.6, Glucose 273 H, Calcium 8.9, Total Bilirubin 0.60, AST 21, ALT 18, Alkaline Phosphatase 127 H, Total Protein 6.8, Albumin 2.7 L, Globulin 4.1, Albumin/Glob ulin Ratio 0.7 L 04/24/21 11:08: POC Glucose 265 H Micro: Microbiology 04/22/21 09:05 Interface Orders SARS-CoV-2 Antigen (Rapid) - Final 04/09/21 07:53 Swab (Method) Nasal Screen MRSA/MSSA - Final Physical Exam Const alert and no apparent distress Resp normal respiratory effort, no retractions, no use of accessory muscles and clear to auscultation bilaterally Cardio regular rate, regular rhythm, S1 normal heart sound and S2 normal heart sound GI normal to inspection, nondistended, normoactive bowel sounds, soft to palpation, non-tender and non-distended Extremity normal to inspection Assessment & Plan Assessment/Plan (1) Avascular necrosis of bone of left hip: PLAN: 1. Left hip avascular necrosis: Patient had left total hip arthroplasty on 04/22. Pain control PT and OT. VT prophylaxis as per orthopedic surgeon. 2. Leukocytosis resolved no fever, likely reactive given recent surgery 3. Anemia Hg dropped from 12.7 on 04/09 to 8.3 no need for transfusions outpt follow up 4. Hypoxia likely multifactorial: know COPD and ANKITA, plus anemia, and medications will require 2 l/m NC continuous for now. Already has oxygen at home that she uses QHS. no additional work up at this time. 5. Chronic condition: complicate care and recovery * Coronary artery disease: No chest pain or shortness of breath. Home cardiac medications aspirin Plavix and statin continued * Nonalcoholic fatty liver disease and ulcerative colitis: Outpatient follow-up. Patient also has history of ulcerative colitis status post colectomy with end ileostomy. * COPD, obstructive sleep apnea on BiPAP: No wheezing or shortness of breath. Continue bronchodilator as needed. BiPAP at night and naps. * Chronic kidney stage IIIb, hypertension and dyslipidemia * Anxiety and depression Medically stable for discharge. DW Dr. Serra. Charges/Coding Visit Charges Inpatient E&M: 51742 Subs Hosp L2
--- NOTE | 2021-04-24 13:39 | CASEMGMT ---
Addendum entered by Naomi Jaimes 04/24/21 15:07: SVETLANA RAINEY in to pt room as it was made aware that patient has concerns with transportation to therapy. Pt sig other in room. Pt states they do not have concerns as sig other is transporting her other than if there is inclement weather tomorrow. Made them aware to call the facility for direction if there is inclement weather to be certain they are open and if they want to reschedule, pt and sig other verbalize understanding. They deny further needs. Addendum entered by Naomi Jaimes 04/24/21 14:59: TC to [facility], pt cost for eliquis is $0. Original Note: [place] [facility] [place] Varsha, pt order for O2 is 4L at rest and 6L with exertion. Pt did not require this amount at the hospital. Varsha requests updated script to be sent so pt may be switched out with a lower concentrator. Faxed updated script at this time. Verified that pt does have portability as well.
== END 2021-04-24 15:50 | disposition home or self-care (01) ==
PROVIDERS: Anesthesiology; Physician Assistant; Admitting Provider Orthopaedic Surgery; PCP Internal Medicine; Referring Provider Orthopaedic Surgery
PROC: 8E0Y0CZ Robotic Assisted Procedure of Lower Extremity, Open Approach (ICD-10-PCS; CPT 27130; principal; 2021-04-22 11:00)
DX: M87.052 Idiopathic aseptic necrosis of left femur (principal); Z93.2 Ileostomy status; J44.9 Chronic obstructive pulmonary disease, unspecified; I13.0 Hypertensive heart and chronic kidney disease with heart failure and stage 1 through stage 4 chronic kidney disease, or unspecified chronic kidney disease; I50.32 Chronic diastolic (congestive) heart failure; K51.90 Ulcerative colitis, unspecified, without complications; E11.22 Type 2 diabetes mellitus with diabetic chronic kidney disease; E11.42 Type 2 diabetes mellitus with diabetic polyneuropathy; E11.43 Type 2 diabetes mellitus with diabetic autonomic (poly)neuropathy; J96.11 Chronic respiratory failure with hypoxia; Z79.4 Long term (current) use of insulin; N18.32 Chronic kidney disease, stage 3b; D63.1 Anemia in chronic kidney disease; E78.49 Other hyperlipidemia; I25.10 Atherosclerotic heart disease of native coronary artery without angina pectoris; G47.33 Obstructive sleep apnea (adult) (pediatric); K76.0 Fatty (change of) liver, not elsewhere classified; F41.9 Anxiety disorder, unspecified; K31.84 Gastroparesis; Z79.891 Long term (current) use of opiate analgesic; G89.29 Other chronic pain; Z87.891 Personal history of nicotine dependence; Z79.82 Long term (current) use of aspirin; Z79.02 Long term (current) use of antithrombotics/antiplatelets; F32.A Depression, unspecified; Z79.899 Other long term (current) drug therapy; Z99.81 Dependence on supplemental oxygen; E66.9 Obesity, unspecified; Z68.31 Body mass index [BMI] 31.0-31.9, adult
CPT/HCPCS: 27130; S2900; 01214; 36415; 73502; 80048; 80053; 80202; 82962; 83036; 83735; 85025; 85027; 85610; 85730; 86850; 86900; 86901; 87081; 87426; 88305; 88311; 93005; 96361; 96374; 96376; 97110; 97116; 97162; 97166; 97530; 97535; 99221; 99251; C1776; A4216; G0378; G0463; J2405

== ENCOUNTER 2021-05-05 14:00 | Outpatient (CLI) | payer MEDICARE, MEDICAID, SELFPAY ==
[2020-11-27 10:47] VITALS: BMI 30.9
--- NOTE | 2021-05-05 14:02 | VDLE_ITS ---
Reason For Study: Pain RIGHT LEFT CFV is compressible, spontaneous, phasic, GSV is normal. competent and demonstrates normal CFV is compressible, spontaneous, phasic, augmentation. competent, and demonstrates normal Procedure augmentation. This is a venous duplex using B-mode, color FV is compressible, spontaneous, phasic, flow and spectral Doppler. competent and demonstrates normal Exam performed in department. augmentation. A preliminary report was called and/or faxed POP V is compressible, spontaneous, phasic, to Jaince. competent and demonstrates normal augmentation. T/P Trunk is compressible. PTV is compressible. LT PerV is compressible. VL/Venous Duplex US, Unilateral Interpretation Summary There is no evidence of left lower extremity deep vein thrombosis. Surgically h arvested left great saphenous vein Normal flow patterns right common femoral vein Ordering Physician: Herni Camacho Referring Physician: Mala Mcgrath Performed By: Amie Webster RVT
== END 2021-05-05 23:59 | disposition home or self-care (01) ==
LOC: CVS 14:01
PROVIDERS: PCP Internal Medicine; Referring Provider Orthopaedic Surgery; Visit Provider Orthopaedic Surgery
DX: Z01.818 Encounter for other preprocedural examination (principal); G89.18 Other acute postprocedural pain; M79.605 Pain in left leg; Z96.642 Presence of left artificial hip joint
CPT/HCPCS: 93971

== ENCOUNTER 2021-05-30 10:00 | Outpatient (RCR) | payer MEDICARE, MEDICAID, SELFPAY ==
[2020-11-27 10:47] VITALS: BMI 30.9
--- NOTE | 2021-04-29 10:31 | HP.PTEVAL_ITS ---
Patient's Visit Information ASHLEY MÉNDEZ is a 60 year old F referred to Physical Therapy by Dr. Henri Camacho DO with a diagnosis of L BERNARD. Date of Evaluation: 04/29/21 Physical Therapist: Cesar Hilliard, PT, ATC - Visit Plan Frequency: 3x /Week Duration: 2 Months Plan: L LE stretching and strengthening, balance and proprio, core stab ex's, nustep, and HEP - Subjective DOS: 04/22/21. Pt reports having a chronic Hx of L hip pain prior to having this surgery. Pt reports she is still in a lot of pain today, and her hip actually feels like it is hurting a bit more today. Pt reports her car ride here was bumpy and that caused a lot of pain. Pt reports her L foot intermittently goes numb on her, which it was doing prior to surgery. Pt reports sleep difficulty at this time secondary to pain. Pt is unemployed at this time. Pt notes her walking is getting a little easier, but notes she needs her WW for support. Pt reports she ambulated with a walker prior to surgery secondary to LBP which would cause her LE's to give out on her occasionally. Pt reports she was in the hospital for 2 days after her surgery where she had PT to aid with strengthening and walking. 8/10 pain at rest, 9/10 at worst (when she is walking) - Pain L hip Pain Intensity (Out of 10): 8 Pain Intensity Range: 9 - Objective Neuro: B LE sensation is WNL to light touch. ROM: L hip flex= 30, ext= 0; R hip flex= 90, ext= 0. MMT: L hip flex= 10, ext= 4; R hip flex 23, ext= 18 #F. Gait: Pt was able to ambulate approximately 120 feet until feeling fatigued and needing to rest - Balance/Special Test Scores Lower Extremity Functional Score: 4 - Goals Goal 1:: Decrease L hip pain x 50% to aid with sleep Goal Time Frame: 6-8 Weeks Goal 2:: Increase L hip strength x 5-10#F to aid with increasing patients tolerance for ambulation Goal Time Frame: 6-8 Weeks Goal 3:: Increase L hip flexion ROM x 50 degrees to aid with restoring a more normalized gait pattern Goal Time Frame: 6-8 Weeks Goal 4:: Pt will be able to ambulate greater than 600 feet with LRD to aid with community ambulation Goal Time Frame: 6-8 Weeks Goal 5:: I with HEP Goal Time Frame: 6-8 Weeks - Rehabilitation Potential Physical Therapy Diagnosis: Pt has L hip pain, weakness, and limited ROM secondary to L BERNARD Rehabilitation Potential: Good - Anticipated Interventions Patient/Client Instruction: Educate patient on: Condition, Plan of Care For the Purpose of:: To improve self management Therapeutic Exercise to Include: Strength training, Endurance training, Balance training, Flexibilty training, Gait and locomotor training, Dynamic Lumbar Stabilization For the Purpose of:: To decrease pain, To increase ROM, To improve muscle performance and motor function Cryotherapy (ice pack, ice massage): Yes For the Purpose of:: To decrease pain Thank you for the opportunity to evaluate your patient. For Medicare and Medicare HMO plans, please review the plan of care and approve it. It will need to be FAXED BACK to us at [phone] for Medicare purposes. For Medicare only, by signing this I certify the plan of care. Please let me know if there are questions or concerns regarding this plan of care. Physician Sign ature: Date:
--- NOTE | 2021-05-30 12:07 | HP.PTREVAL_ITS ---
Dr. Henri Camacho, DO, It has been my pleasure to treat ASHLEY MÉNDEZ over the last 11 visits for L BERNARD 04/22/21. Please see the progress note below for an update on the physical therapy plan of care! Subjective: I am sore today Objective/Function: L hip pain ranges from 2-5/10. TUG 9.79. L hip strength flex= 28, ext= 15.8 #F. L hip ROM: ext= 0, flex= 80 Plan Plan: Cont or DC pending dr visit on Wednesday Balance/Gait/Functional tests - Balance/Special Test Scores Lower Extremity Functional Score: 4 Goals Goal 1:: Decrease L hip pain x 50% to aid with sleep Goal Time Frame: 6-8 Weeks Goal 2:: Increase L hip strength x 5-10#F to aid with increasing patients tolerance for ambulation Goal Time Frame: 6-8 Weeks Goal 3:: Increase L hip flexion ROM x 50 degrees to aid with restoring a more normalized gait pattern Goal Time Frame: 6-8 Weeks Goal 4:: Pt will be able to ambulate greater than 600 feet with LRD to aid with community ambulation Goal Time Frame: 6-8 Weeks Goal 5:: I with HEP Goal Time Frame: 6-8 Weeks Anticipated Interventions Patient/Client Instruction: Educate patient on: Condition, Plan of Care For the Purpose of:: To improve self management Therapeutic Exercise to Include: Strength training, Endurance training, Balance training, Flexibilty training, Gait and locomotor training, Dynamic Lumbar Stabilization For the Purpose of:: To decrease pain, To increase ROM, To improve muscle performance and motor function Cryotherapy (ice pack, ice massage): Yes For the Purpose of:: To decrease pain Please do not hesitate to contact me at [phone] by phone or Fax: if you have questions or concerns regarding this new plan of care! Sincerely, Cesar Hilliard, PT, ATC
--- NOTE | 2021-08-20 12:39 | HP.PT.NRP ---
ASHLEY MÉNDEZ was seen in my office for initial evaluation on 04/29/21. The following Plan of Care was established for this patient: Initial Frequency: 3x /Week Initial Duration: 2 Months Patient/Client Instruction: Educate patient on: Condition, Plan of Care For the Purpose of:: To improve self management Therapeutic Exercise to Include: Strength training, Endurance training, Balance training, Flexibilty training, Gait and locomotor training, Dynamic Lumbar Stabilization For the Purpose of:: To decrease pain, To increase ROM, To improve muscle performance and motor function Cryotherapy (ice pack, ice massage): Yes For the Purpose of:: To decrease pain This patient was last seen in our office . Pertinent comments regarding their Physical therapy will appear below: Pt was treated for 11 PT visits for L hip pain through the date of 05/30/21. Pt has not returned through this date and is discontinued at this time. At this point I will be discontinuing this patient from physical therapy. I would be happy to see this patient again in the future if found appropriate by the physician. Thank you! Cesar Hilliard, PT, ATC Balance/Gait/Functional tests - Balance/Special Test Scores Lower Extremity Functional Score: 4
== END 2021-05-30 19:00 | disposition home or self-care (01) ==
LOC: PT 10:00
PROVIDERS: PCP Internal Medicine; Referring Provider Orthopaedic Surgery; Visit Provider Orthopaedic Surgery
DX: Z96.642 Presence of left artificial hip joint (principal)
CPT/HCPCS: 97110; 97116; 97161; 97164

== ENCOUNTER → 2021-09-16 | Outpatient (CLI) | payer MEDICARE, MEDICAID, SELFPAY ==
[2020-11-27 10:47] VITALS: BMI 30.9
[2021-09-16 12:30] VITALS: PULSE 72; PULSE 81; PULSE 82; PULSE 87; PULSE 90; PULSE 92; O2SAT 93; O2SAT 94; O2SAT 95; O2SAT 96; O2SAT 97
--- NOTE | 2021-09-17 07:36 | PCM.PSN.6M ---
PSN 6 Minute Walk Test 6 Minute Walk Test 6 Minute Walk Test: 6 Minute Walk Test PSN:6-Minute Walk Test Start: 09/16/21 12:52 Freq: Status: Active Protocol: RESP.6MINW Document 09/16/21 12:[address] [facility] (Rec: 09/16/21 12:[address] [facility] [id number]) 6 Minute Walk Test Date Performed 09/16/21 Time Performed 12:30 Height 5 ft 7 in Weight: 192 lb Weight in Pounds 192.[address]: EL Matias Assistive device used: None Pre-test Oxygen Delivery Method Room Air Pulse Ox (%) 97 Pulse Rate (60-100 beats/min) 72 Dyspnea Melissa Scale (0-10) 0 Exertion Melissa Scale (6-20) 6 1st minute Oxygen Delivery Method Room Air Pulse Ox (%) 95 Pulse Rate (60-100 beats/min) 82 2nd minute Oxygen Delivery Method Room Air Pulse Ox (%) 93 Pulse Rate (60-100 beats/min) 81 3rd minute Oxygen Delivery Method Nasal Cannula Pulse Ox (%) 94 Pulse Rate (60-100 beats/min) 87 4th minute Oxygen Delivery Method Room Air Pulse Ox (%) 94 Pulse Rate (60-100 beats/min) 90 5th minute Oxygen Delivery Method Room Air Pulse Ox (%) 94 Pulse Rate (60-100 beats/min) 90 6th minute Oxygen Delivery Method Room Air Pulse Ox (%) 96 Pulse Rate (60-100 beats/min) 92 Dyspnea Melissa Scale (0-10) 0 Exertion Melissa Scale (6-20) 11 Post-test Oxygen Delivery Method Room Air Pulse Ox (%) 96 Pulse Rate (60-100 beats/min) 87 Full Laps Walked 21 Partial Lap, Number of Tiles Walked 0 Total Distance Walked (ft) 1239 Interpretation Interpretation: The patient ambulated 1239 feet over the course of 6 minutes beginning on room air without assistive devices. Pretesting oxygen saturation was noted to be 97% on room air. With ambulation, the jenni oxygen saturation was 93%. There was no significant exertional oxygen desaturation. Recommendations Recommendations: There is no indication for the use of supplemental oxygen at this time.
== END | disposition home or self-care (01) ==
LOC: PSN 12:31
PROVIDERS: PCP Internal Medicine; Visit Provider Nurse Practitioner Acute Care
DX: J96.11 Chronic respiratory failure with hypoxia (principal); Z99.81 Dependence on supplemental oxygen
CPT/HCPCS: 94618

== ENCOUNTER → 2021-09-19 | Outpatient (CLI) | payer MEDICARE, MEDICAID, SELFPAY ==
[2020-11-27 10:47] VITALS: BMI 30.9
[2021-09-19 11:14] LABS: Erythrocyte Sedimentation Rate 23 mm/hr (0-30)
[2021-09-19 11:15] LABS: Prothrombin Time (Protime)PT. 12.8 SECONDS (11.7-14.9)
[2021-09-19 11:17] LABS: Absolute Lymphocyte Count 2.42 X10^3/uL (0.83-4.51); Absolute Neutrophil Count 4.9 X10^3/uL (2.0-7.7); Basophil# 0.06 X10^3/uL; Basophil% 0.7 % (0-1); Eosinophil# 0.36 X10^3/uL; Eosinophils% 4.3 % (0-5); Hematocrit 41.4 % (37-47); Hemoglobin 13.1 g/dL (12.0-15.0); Lymphocyte # 2.42 X10^3/ul (0.83-4.51); Mean Corp Hgb Conc 31.6 g/dL (32-36); Mean Corpuscular Hgb 26.4 pg (27.0-32.0); Mean Corpuscular Volume 83.3 fL (81-99); Monocyte# 0.56 X10^3/uL; Monocyte% 6.7 % (0-10); NRBC Flagged by Analyzer 0 % (0-5); Neutrophil # 4.87 X10^3/uL (2.7-7.7); Neutrophil % 58.3 % (47-70); Platelet Count 168 K/mm3 (150-450); RBC Distribution Width CV 17.1 % (11.6-14.6); RBC Distribution Width SD 50.3 fl (35.1-43.9); Red Blood Count 4.97 M/mm3 (4.2-5.4); White Blood Count 8.4 K/mm3 (4.4-11.0)
[2021-09-19 11:49] LABS: ALB/GLOB Ratio 0.8 RATIO (0.9-2.4); AST(SGOT) 18 U/L (15-37); Alanine Aminotransfer ALT/SGPT 21 U/L (13-56); Albumin, Serum 3.4 g/dL (3.2-5.0); Alkaline Phosphatase 203 U/L (45-117); Anion Gap 8 (5-15); BUN 44 mg/dL (7-18); BUN/Creat Ratio 20.5 RATIO (10-20); Calcium,Total 8.7 mg/dL (8.5-10.1); Chloride 107 mmol/L (98-107); Creatinine, Serum 2.15 mg/dL (0.55-1.02); EST Glomerular Filtration Rate 25 mL/min (>60); Est Glom Filt Rate - Afr Amer 30 mL/min (>60); Ferritin 22 ng/mL (8-252); Globulin 4.1 g/dL (2.2-4.2); Glucose 246 mg/dL (74-106); LDH 202 U/L (84-246); Protein, Total 7.5 g/dL (6.4-8.2); Rheumatoid Factor < 10.0 IU/mL (<15); Sodium Level 140 mmol/L (136-145)
[2021-09-22 13:07] LABS: Anti-Centromere B Ab <0.2 AI (0.0-0.9); Anti-Chromatin <0.2 AI (0.0-0.9); Anti-Jo <0.2 AI (0.0-0.9); Anti-Scleroderma-70 AB <0.2 AI (0.0-0.9); RNP Ab 0.2 AI (0.0-0.9); SJOGREN'S Anti-SS-A test < 0.2 AI (0.0-0.9); SJOGREN'S Anti-SS-B test < 0.2 AI (0.0-0.9); Smith Ab <0.2 AI (0.0-0.9)
[2021-09-23 14:07] LABS: Anti-Mitochondrial AB <20.0 Units (0.0-20.0); Anti-dsDNA Ab <1 IU/mL (0-9)
[2021-09-24 21:07] LABS: Albumin 3.5 g/dL (2.9-4.4); Alpha-1-Globulins 0.2 g/dL (0.0-0.4); Angiotensin Convert Enzyme 52 U/L (14-82); Cytoplasmic Ab (C-ANCA) <1:20 titer (Neg:<1:20); Gamma Globulin 1.1 g/dL (0.4-1.8); Immunoglobulin A 275 mg/dL (87-352); Immunoglobulin E 234 IU/mL (6-495); Immunoglobulin G 1029 mg/dL (586-1602); Immunoglobulin M 62 mg/dL (26-217); PROEL- TOTAL PROTEIN 7.1 g/dL (6.0-8.5)
[2021-09-25 15:36] LABS: Anti-Smooth Muscle ABS 5 Units (0-19); Copper, Serum or Plasma 130 ug/dL (80-158); Perinuclear Ab (P-ANCA) <1:20 titer (Neg:<1:20)
== END | disposition home or self-care (01) ==
LOC: LAB 10:39
PROVIDERS: PCP Internal Medicine; Referring Provider Internal Medicine Gastroenterology; Visit Provider Internal Medicine Gastroenterology
DX: R11.2 Nausea with vomiting, unspecified (principal); K51.90 Ulcerative colitis, unspecified, without complications; E11.43 Type 2 diabetes mellitus with diabetic autonomic (poly)neuropathy; K31.84 Gastroparesis; K76.0 Fatty (change of) liver, not elsewhere classified
CPT/HCPCS: 80053; 82140; 82164; 82390; 82525; 82728; 82784; 82785; 83516; 83615; 84165; 85025; 85610; 85652; 86140; 86225; 86235; 86256; 86334; 86431

== ENCOUNTER → 2021-10-10 | Outpatient (CLI) | payer MEDICARE, MEDICAID, SELFPAY ==
[2020-11-27 10:47] VITALS: BMI 30.9
--- NOTE | 2021-10-10 12:16 | BI_ITS ---
MAMMOGRAPHY - BILATERAL SCREENING REASON FOR EXAM: Female, 61 years old. Routine annual screening examination. PERTINENT HISTORY: Non-contributory. TECHNIQUE: Digital bilateral breast rosemary (3D mammographic acquisition) in the CC and MLO projections. 2-D mediolateral oblique (MLO) and craniocaudad (CC) views of both breasts were obtained. CAD: Full Field Digital Mammography with Computer Added Detection was performed. COMPARISON: Comparison is made with prior study of 12/06/2019. FINDINGS: Breast Composition: There are scattered areas of fibroglandular density. There are no dominant masses or suspicious calcifications. No other significant abnormalities are identified. There has been no significant change since the prior study. BI/SCRN MAMM (CAD)W/ROSEMARY BILAT IMPRESSION: Stable bilateral screening mammogram. Yearly follow-up mammogram recommended. (A) ASSESSMENT CATEGORY: BIRADS Category 1: Negative. A letter regarding these results will be sent to the patient by the facility within 30 days. Approximately 10% of breast cancers are not detected by mammography. A normal mammogram should not delay biopsy of a clinically suspicious abnormality. [id number] Electronically Signed: Eric Spencer MD at 9:44 EDT ,
== END | disposition home or self-care (01) ==
LOC: OPBI 12:15
PROVIDERS: PCP Internal Medicine; Visit Provider Internal Medicine Hematology & Oncology
DX: Z12.31 Encounter for screening mammogram for malignant neoplasm of breast (principal)
CPT/HCPCS: 77063; 77067

== ENCOUNTER 2021-10-15 17:52 | Inpatient (IN) | payer MEDICARE, MEDICAID, SELFPAY ==
[2020-11-27 10:47] VITALS: BMI 30.9
[2021-10-15] VITALS (9 sets, daily range): BP systolic 114–145; BP diastolic 65–110; PULSE 118–148; RESP 16–32; TEMP 36.7–36.8; O2SAT 90–98; BMI 29.9; BMI 28.7
--- NOTE | 2021-10-15 18:08 | EKG12_ITS ---
Test Reason : DYSRHYTHMIA Blood Pressure : / mmHG Vent. Rate : 121 BPM Atrial Rate : 121 BPM P-R Int : 160 ms QRS Dur : 086 ms QT Int : 314 ms P-R-T Axes : 034 -47 133 degrees QTc Int : 445 ms Sinus tachycardia Left anterior fascicular block Left ventricular hypertrophy with repolarization abnormality Abnormal ECG Confirmed by IWONA DOMINGUEZ, STEVE ([id number]), scientific editor ISABELLA BUTLER ([id number]) on 10/17/2021 2:31:11 PM Referred By: DENISSE Confirmed By:EDNA BUSTILLO MD
--- NOTE | 2021-10-15 18:09 | EX.ED.DYSGE1 ---
HPI History of Present Illness Chief Complaint: Shortness of Breath Detail of Chief Complaint: Vomiting and diarrhea Informant: patient Onset/Context/Timing Onset: Yesterday Current Severity: Moderate Maximum Severity: Moderate Narrative Narrative: Patient present secondary to vomiting and diarrhea along with shortness of breath. She states around 9 PM last evening she started feel nauseated. She had diarrhea and vomiting all night. She does have an ileostomy and states the bag kept refilling. No obvious blood in the stool. She reports having a temperature of 100 degrees last night. She did take some Reglan which helped the nausea but continues to have significant diarrhea, not improved with Lomotil. While walking into the emergency room patient became short of breath and lightheaded with exertion. She does report exposure to COVID 3 days ago. She took a home test yesterday that was negative. [facility] Medical History Anemia of chronic renal failure, stage 3 (moderate) Anxiety Arthritis Atherosclerosis of coronary artery bypass graft without angina pectoris Atherosclerotic heart disease of [place] coronary artery without angina pectoris Back pain BiPAP (biphasic positive airway pressure) dependence BMI 31.0-31.9,adult Cardiology follow-up encounter Chronic back pain Chronic diastolic (congestive) heart failure Chronic respiratory failure Chronic respiratory failure with hypoxia, on home O2 therapy CKD (chronic kidney disease) stage 3, GFR 30-59 ml/min COPD (chronic obstructive pulmonary disease) Coronary artery disease COVID-19 vaccine series completed Depression Depression with anxiety Diabetic gastroparesis Dietary restriction DM2 (diabetes mellitus, type 2) Encephalopathy Essential (primary) hypertension Fatty liver FCHL (familial combined hyperlipidemia) Former smoker Gastric reflux High cholesterol History of COVID-19 History of echocardiogram History of edema History of pain when walking History of renal disease History of stress test Hx of diabetic gastroparesis Hx of psoriasis Hyperlipidemia Hypertension Hypertensive chronic kidney disease with stage 1 through stage 4 chronic kidney disease, or unspecified chronic kidney disease Ileostomy present Increased ammonia level Insulin dependent diabetes mellitus Leg cramps Liver mass Loss of hearing Meniere's disease in remission Menieres disease MGUS (monoclonal gammopathy of unknown significance) Migraine headache Myoclonic jerking Non-alcoholic fatty liver disease Nonalcoholic steatohepatitis Obstructive sleep apnea Pancreatitis Preoperative evaluation to rule out surgical contraindication Psoriasis Right thyroid nodule Secondary pulmonary arterial hypertension Shortness of breath on exertion 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 2 diabetes mellitus Thyroid mass Type 2 diabetes mellitus with diabetic polyneuropathy Ulcerative colitis Walker as ambulation aid Wears glasses Home Medications Wheel Chair #1 ea 04/17/20 [Rx Last Taken Unknown] ondansetron 4 mg disintegrating tablet 4 mg PO Q8H PRN nausea and vomiting #30 tabs 09/20/20 [Rx Last Taken Unknown] dicyclomine 20 mg tablet 20 mg PO 4X/DAY PRN abdominal cramps #0 tabs 01/08/21 [Rx Last Taken Unknown] flash glucose sensor (FreeStyle Allison 2 Sensor kit) #2 ea 01/17/21 [Rx Last Taken Unknown] isosorbide dinitrate 30 mg tablet 30 mg PO BID heart #60 tabs 01/28/21 [Rx Last Taken 04/22/21 07:30] pen needle, diabetic 32 gauge x 5/32 (BD Ultra-Fine Key Pen Needle) #200 ea 03/21/21 [Rx Last Taken Unknown] aspirin 81 mg tablet,delayed release 81 mg PO DAILY Check with primary doctor 04/08/21 [History Last Taken 04/15/21] clopidogrel 75 mg tablet 75 mg PO DAILY Check with primary doctor 04/22/21 [History Last Taken 04/15/21] metoclopramide HCl 5 mg tablet (Reglan) 5 mg PO DAILY PRN reflux 04/22/21 [History Last Taken Unknown] buprenorphine 20 mcg/hour weekly transdermal patch 1 patch transdermal QWEEK 05/05/21 [History Last Taken Unknown] hydrochlorothiazide 25 mg tablet 25 mg PO DAILY #90 tabs 05/09/21 [Rx Last Taken Unknown] pantoprazole 40 mg tablet,delayed release 40 mg PO DAILY gerd #90 tabs 05/09/21 [Rx Last Taken Unknown] diphenoxylate-atropine 2.5 mg-0.025 mg tablet (Lomotil) 1 tab PO TID PRN diarrhea #90 tabs 05/19/21 [Rx Last Taken Unknown] Lantus Solostar U-100 Insulin 100 unit/mL (3 mL) subcutaneous pen (insulin glargine) 50 unit (0.5 mL) subcut BID glucose control #90 mL 07/18/21 [Rx Last Taken Unknown] insulin lispro 100 unit/mL subcutaneous pen (Humalog KwikPen (U-100) Insulin) 60 unit (0.6 mL) subcut TID Glucose control #225 mL 07/21/21 [Rx Last Taken Unknown] blood-glucose meter,continuous (Dexcom G6 Card Cutter Helper misc) #1 ea 08/07/21 [Rx Last Taken Unknown] blood-glucose sensor (Dexcom G6 Sensor device) #9 ea 08/07/21 [Rx Last Taken Unknown] blood-glucose transmitter (Dexcom G6 Transmitter device) #1 ea 08/07/21 [Rx Last Taken Unknown] atorvastatin 80 mg tablet 80 mg PO QHS CHOLESTEROL LOWERING #90 tabs 08/29/21 [Rx Last Taken Unknown] blood sugar diagnostic (True Metrix Glucose Test Strip) #100 ea 09/01/21 [Rx Last Taken Unknown] insulin pump cart,automated,BT (Omnipod 5 G6 Pods (Gen 5) subcutaneous cartridge) #45 ea 09/01/21 [Rx Last Taken Unknown] metoprolol tartrate 25 mg tablet 25 mg PO BID #180 tabs 09/01/21 [Rx Last Taken Unknown] metoprolol tartrate 50 mg tablet 50 mg PO BID blood pressure #180 tabs 09/01/21 [Rx Last Taken Unknown] betamethasone dipropionate 0.05 % topical cream 1 applic topical DAILY #45 grams 09/02/21 [Rx Last Taken Unknown] ursodiol 300 mg capsule 300 mg PO BID Check with primary doctor #180 caps 09/26/21 [Rx Last Taken Unknown] pregabalin 75 mg capsule 75 mg PO BID pain #60 caps 10/03/21 [Rx Last Taken Unknown] duloxetine 30 mg capsule,delayed release 60 mg PO BID Check with primary doctor 10/06/21 [History Last Taken Unknown] mupirocin 2 % topical ointment 1 applic topical BID PRN Rash 10/15/21 [History Last Taken Unknown] vitamin E (dl, acetate) 180 mg (400 unit) capsule 360 mg PO DAILY 10/15/21 [History Last Taken Unknown] Allergy/AdvReac Type Severity Reaction Status Date / Time aripiprazole [From Abilify] Allergy Intermediate hallucinati Verified 10/15/21 17:54 ons ciprofloxacin Allergy Intermediate Swelling Verified 10/15/21 17:54 cinnamon [Cinnamon] Allergy Anaphylaxis Verified 10/15/21 17:54 Influenza Virus Vaccines Allergy Shortness Verified 10/15/21 17:54 of breath liraglutide [From Victoza] Allergy Anaphylaxis Verified 10/15/21 17:54 metronidazole [From Flagyl] Allergy Hives Verified 10/15/21 17:54 Metronidazole HCl Allergy Hives Verified 10/15/21 17:54 [From Flagyl] Penicillins Allergy Hives Verified 10/15/21 17:54 Sulfa (Sulfonamide Allergy Hives Verified 10/15/21 17:54 Antibiotics) codeine AdvReac Stops Verified 10/15/21 17:54 Ileostomy metformin HCl AdvReac Nausea Verified 10/15/21 17:54 [From Glucophage] ranolazine AdvReac Nausea/Vom/ Verified 10/15/21 17:54 Diarrhea [id number] Reductase AdvReac Nausea/joints Verified 10/15/21 17:54 Inhibitor ache [[id number] Reductase Inhibitor] Family History Mother CVA (cerebral vascular accident) Diabetes Brother Heart disease of CAD at 65 Myocardial infarction Pancreatitis Father Cancer lymphomia Lymphoma Grandmother Myocardial infarction of [place] in her 70s Sister COPD (chronic obstructive pulmonary disease) Surgical History H/O colectomy H/O coronary artery bypass surgery (05/18/12) H/O sinus surgery H/O total hysterectomy history closed fissure History of History of cardiac catheterization History of cholecystectomy History of coronary artery stent placement (01/12/18) ileostomy Ileostomy status left thumb surgery Social History Smoking Status: Former smoker quit date: 03/08/12 how long ago did patient quit smoking: quit in 2012; 0.5-1ppd x 30yrs alcohol intake: never substance use type: does not use diet: diabetic caffeine: No eating out: 1-3 times/week what type of physical activity do you participate in: none seatbelt use: always do you feel safe at home: Yes ROS ROS ED Constitutional Constitutional ED: Reports fever(s); Denies chills Eyes Eyes: Denies change in vision or discharge from eye(s) ENT ENT ED: Denies discharge from eye(s), rhinorrhea or sore throat Cardiovascular Cardiovascular: Denies chest pain or palpitations Respiratory/Chest Respiratory/Chest: Reports dyspnea; Denies cough Gastrointestinal Gastrointestinal: Reports abdominal pain, diarrhea, nausea and vomiting Genitourinary Genitourinary ED: Reports other Details: Decreased urine output ; Denies difficulty urinating or dysuria Musculoskeletal Musculoskeletal: Reports extremity pain and myalgias; Denies back pain Integumentary Denies Abrasions or rash Neurologic Neurologic: Reports weakness; Denies headache(s) Psychiatric Psychiatric: Denies anxiety or depression Allergic/Immunologic Allergic/Immunologic ED: Denies lip swelling or urticaria EXAM Physical Exam Const Vital Signs: 10/15/21 17:54 10/15/21 18:00 10/15/21 18:02 Temperature 98.3 F Temperature Source Temporal Pulse Rate 148 H 123 H Respiratory Rate 32 H 21 H Respiratory Effort Short of Breath Labored Respiratory Pattern Tachypnea Blood Pressure 145/110 H 129/65 H Blood Pressure Mean 121 86 Pulse Ox 90 97 Oxygen Delivery Method Room Air Room Air Room Air 10/15/21 18:57 10/15/21 19:00 10/15/21 20:29 Temperature Temperature Source Pulse Rate 124 H 122 H 126 H Respiratory Rate 23 H 16 21 H Respiratory Effort Respiratory Pattern Blood Pressure 125/75 H 119/80 114/86 H Blood Pressure Mean 91 93 95 Pulse Ox 98 96 95 Oxygen Delivery Method Room Air Room Air Positive well nourished and well developed General Appearance ED: well developed HEENT Reports normocephalic and head/scalp atraumatic Eyes PERRL and EOMs intact bilaterally Neck supple Chest Wall inspection of chest normal and palpation of chest normal Resp normal respiratory effort and clear to auscultation bilaterally Cardio regular rhythm Rate: tachycardic GI non-tender Auscultation: hypoactive bowel sounds Palpation: soft Extremity normal to inspection Neuro oriented x3 and no sensory deficits noted Sensorium / Orientation: alert Motor Exam: strength 5/5 throughout Psych mental status grossly normal Skin no rashes or lesions noted MDM MDM MDM Narrative Medical decision making narrative: Patient placed on hydropulper operator. EKG and chest x-ray obtained. Lab work ordered. Patient given IV fluids. Swabs for COVID and influenza obtained. Lab Data Attestation: I reviewed the patient's lab results. Labs: Laboratory Results - last 24 hr 10/15/21 10/15/21 18:14 18:14 WBC 17.1 H RBC 5.91 H Hgb 15.8 H Hct 50.3 H MCV 85.1 MCH 26.7 L MCHC 31.4 L RDW Std Deviation 50.4 H RDW Coeff of Jan 17.1 H Plt Count 257 MPV 12.5 H Immature Gran % (Auto) 0.600 Neut % (Auto) 62.2 Lymph % (Auto) 26.7 Sebastian % (Auto) 6.1 Eos % (Auto) 4.0 Baso % (Auto) 0.4 Absolute Neuts (auto) 10.7 H Absolute Lymphs (auto) 4.58 H Nucleated RBC % 0 Sodium 134 L Potassium 4.4 Chloride 102 Carbon Dioxide 19.0 L Anion Gap 13 BUN 46 H Creatinine 3.19 H Estim Creat Clear Calc 17.55 Est GFR (MDRD) Af Amer 19 L Est GFR (MDRD) Non-Af 16 L BUN/Creatinine Ratio 14.4 Glucose 300 H Calcium 10.2 H Total Bilirubin 1.20 H Direct Bilirubin 0.28 AST 15 ALT 19 Alkaline Phosphatase 154 H Total Protein 8.9 H Albumin 3.7 Globulin 5.2 H Radiography Chest X-Ray - ED: 1 View, Read by ED Physician, Chronic Changes and No Infiltrates Diagnostic Testing: Clinical Impression(s) from Imaging Studies Chest X-Ray 10/15/21 18:30 IMPRESSION: No radiographic evidence of acute cardiopulmonary disease. Electronically Signed: Royce Renteria MD at 18:43 EDT , Abdomen/Pelvis CT 10/15/21 19:17 IMPRESSION: No evidence of acute intra-abdominal pathology. Right lower pole renal hypodensity, 50 mL in diameter, appears unchanged in size compared to prior comparison exam. Collapse or absent gallbladder. Total colectomy with left lower quadrant ostomy and associated fat filled parastomal hernia. These findings are unchanged. Electronically Signed: Nazario Hutson DO at 20:30 EDT , EKG Initial EKG: Attestation: I personally reviewed and interpreted this EKG as follows: Interpretation: Sinus Tachycardia (Sinus tach at 121. No acute ST change.) Treatment and Re-Evaluation Narrative: On repeat evaluation patient milagros tachycardic around 120. She is ordered Zofran and Bentyl to help with nausea and abdominal cramping. CBC was a white count of 17.1 but no significant left shift. Hemoglobin is concentrated at 15.8. Chemistry studies reveal a BUN of 46 and a creatinine of 3.19. It appears the patient's baseline creatinine is in the high [address] scan of the abdomen and pelvis obtained that reveals no acute abnormalities. Stool studies have been ordered and sent. COVID and influenza test are negative. At this time I do feel patient require observation overnight for further hydration and treatment. Discharge Plan Triage Chief Complaint: Shortness of Breath ED Provider: Tiffany Alexandre Dx/Rx/DC Orders Clinical Impression: Gastroenteritis, Dehydration Prescriptions: No Action (DME) Wheel Chair See Rx Instructions .Route .MEDSUPPLY Qty: 1 0RF Rx Instructions: As directed (DME) FreeStyle Allison 2 Sensor Kit See Rx Instructions .ROUTE .MEDSUPPLY Qty: 2 11RF Rx Instructions: As directed ondansetron 4 mg tablet,disintegrating 4 mg PO Q8H PRN (Reason: nausea and vomiting) Qty: 30 0RF duloxetine 30 mg capsule,delayed release(DR/EC) 60 mg PO BID (DME) pen needle, diabetic [BD Ultra-Fine Key Pen Needle] 32 gauge x 5/32 needle See Rx Instructions .ROUTE .MEDSUPPLY Qty: 200 8RF Rx Instructions: takes 5 injection/day buprenorphine 20 mcg/hour patch weekly 1 patch transdermal QWEEK Label Comments: APPLY 1 PATCH EVERY 7 DAYS dicyclomine 20 mg tablet 20 mg PO 4X/DAY PRN (Reason: abdominal cramps) Qty: 0 0RF aspirin 81 mg Tablet,Delayed Release (Dr/Ec) 81 mg PO DAILY clopidogrel 75 mg tablet 75 mg PO DAILY Hold Instructions: Resume the day after completion of Eliquis Rx Instructions: TAKE 1 TABLET BY MOUTH EVERY DAY metoclopramide HCl [Reglan] 5 mg Tablet 5 mg PO DAILY PRN (Reason: reflux) mupirocin 2 % ointment 1 applic topical BID PRN (Reason: Rash) Rx Instructions: around wound vitamin E (dl, acetate) 180 mg (400 unit) capsule 360 mg PO DAILY isosorbide dinitrate 30 mg tablet 30 mg PO BID Qty: 60 11RF hydrochlorothiazide 25 mg tablet 25 mg PO DAILY Qty: 90 3RF pantoprazole 40 mg tablet,delayed release (DR/EC) 40 mg PO DAILY Qty: 90 3RF diphenoxylate-atropine [Lomotil] 2.5-0.025 mg tablet 1 tab PO TID PRN (Reason: diarrhea) Qty: 90 0RF Lantus Solostar U-100 Insulin 100 unit/mL (3 mL) insulin pen 50 unit subcut BID Qty: 90 1RF insulin lispro [Humalog KwikPen Insulin] 100 unit/mL insulin pen 60 unit SUBCUT TID MDD 250 Qty: 225 1RF Rx Instructions: plus SSI: 180 + 5; 220 +10; 240 +15; 270 +20 ([facility]) Dexcom G6 Card Cutter Helper Misc See Rx Instructions .ROUTE .MEDSUPPLY Qty: 1 0RF Rx Instructions: As directed ([facility] [place]) Dexcom G6 Sensor Device See Rx Instructions .ROUTE .MEDSUPPLY Qty: 9 3RF Rx Instructions: 1 sensor every 10 days ([facility] [place]) Dexcom G6 Transmitter Device See Rx Instructions .ROUTE .MEDSUPPLY Qty: 1 3RF Rx Instructions: 1 transmitter every 90 days atorvastatin 80 mg tablet 80 mg PO QHS Qty: 90 3RF Label Comments: cholesterol ([facility] [place]) True Metrix Glucose Test Strip Strip See Rx Instructions .Route Qty: 100 6RF Rx Instructions: 3 times per day metoprolol tartrate 50 mg tablet 50 mg PO BID Qty: 180 3RF Rx Instructions: TAKES 50mg and 25mg TO MAKE 75 MG DOSE. metoprolol tartrate 25 mg tablet 25 mg PO BID Qty: 180 3RF Rx Instructions: Takes 25 mg + 50 mg tablet to + 75 mg BID ([facility]) Omnipod 5 G6 Pods (Gen 5) Cartridge See Rx Instructions .Route Qty: 45 1RF Rx Instructions: 1 pod q 48 hours betamethasone dipropionate 0.05 % cream 1 applic topical DAILY Qty: 45 2RF ursodiol 300 mg capsule 300 mg PO BID Qty: 180 1RF pregabalin 75 mg capsule 75 mg PO BID Qty: 60 1RF Primary Care Provider: Mala Mcgrath Referrals: Mala Mcgrath MD [Primary Care Provider] - Disposition Disposition: Acute Care Hospital [facility]
--- NOTE | 2021-10-15 18:30 | RAD_ITS ---
INDICATION: sob EXAMINATION/TECHNIQUE: X-RAY - XR Chest 1 View COMPARISON: January 07, 2021. FINDINGS: LINES/DEVICES: Sternotomy wires are midline and intact.. LUNGS: No consolidation, edema or effusion. No pneumothorax. MEDIASTINUM AND CARDIOVASCULAR STRUCTURES: Cardiac silhouette not enlarged. Central airways and mediastinal contour are unremarkable. BONES AND SOFT TISSUES: Unremarkable. RAD/Chest 1 View (Portable) IMPRESSION: No radiographic evidence of acute cardiopulmonary disease. Electronically Signed: Royce Renteria MD at 18:43 EDT ,
[2021-10-15 18:31] LABS: Absolute Lymphocyte Count 4.58 X10^3/uL (0.83-4.51); Absolute Neutrophil Count 10.7 X10^3/uL (2.0-7.7); Basophil# 0.06 X10^3/uL; Basophil% 0.4 % (0-1); Eosinophil# 0.69 X10^3/uL; Hematocrit 50.3 % (37-47); Hemoglobin 15.8 g/dL (12.0-15.0); Lymphocyte # 4.58 X10^3/ul (0.83-4.51); Lymphocyte % 26.7 % (19-41); Mean Corp Hgb Conc 31.4 g/dL (32-36); Mean Corpuscular Hgb 26.7 pg (27.0-32.0); Mean Corpuscular Volume 85.1 fL (81-99); Mean Platelet Vol. 12.5 fl (6.2-12.0); Monocyte# 1.04 X10^3/uL; Monocyte% 6.1 % (0-10); NRBC Flagged by Analyzer 0 % (0-5); Neutrophil # 10.66 X10^3/uL (2.7-7.7); Neutrophil % 62.2 % (47-70); Platelet Count 257 K/mm3 (150-450); RBC Distribution Width CV 17.1 % (11.6-14.6); RBC Distribution Width SD 50.4 fl (35.1-43.9); Red Blood Count 5.91 M/mm3 (4.2-5.4); White Blood Count 17.1 K/mm3 (4.4-11.0)
[2021-10-15 18:46] LABS: AST(SGOT) 15 U/L (15-37); Alanine Aminotransfer ALT/SGPT 19 U/L (13-56); Albumin, Serum 3.7 g/dL (3.2-5.0); Alkaline Phosphatase 154 U/L (45-117); Anion Gap 13 (5-15); BUN 46 mg/dL (7-18); BUN/Creat Ratio 14.4 RATIO (10-20); Bilirubin, Direct 0.28 mg/dL (0.00-0.30); Calcium,Total 10.2 mg/dL (8.5-10.1); Chloride 102 mmol/L (98-107); Creatinine, Serum 3.19 mg/dL (0.55-1.02); EST Glomerular Filtration Rate 16 mL/min (>60); Est Glom Filt Rate - Afr Amer 19 mL/min (>60); Estimated Creatinine Clearance 17.55 ml/min; Globulin 5.2 g/dL (2.2-4.2); Glucose 300 mg/dL (74-106); Potassium 4.4 mmol/L (3.5-5.1); Protein, Total 8.9 g/dL (6.4-8.2); Sodium Level 134 mmol/L (136-145)
[2021-10-15] MEDS: 0.9% Normal Saline 1,000 ML 150 ML IV (18:56)
--- NOTE | 2021-10-15 19:17 | CT_ITS ---
INDICATION: abd pain, leukocytosis EXAMINATION: CT ABDOMEN AND PELVIS WITHOUT CONTRAST - CT Abdomen And Pelvis W/O Contrast Injection TECHNIQUE: Helically acquired images were obtained of the abdomen and pelvis without oral or IV contrast. A radiation dose optimization technique was used for this scan. IV Contrast dosage and agent: None. Oral contrast: None. COMPARISON: CT abdomen and pelvis with contrast, 10/10/2019. FINDINGS: LOWER CHEST: Lung bases are clear. No cardiomegaly or pericardial effusion. [id number] coronary artery calcifications noted. LIVER: Homogeneous. No focal mass. GALLBLADDER AND BILIARY TREE: No calcified gallstones. Gallbladder is surgically collapsed or absent. No intra- or extrahepatic biliary ductal dilation. PANCREAS: No focal cystic or solid mass. SPLEEN: Normal size without focal cystic or solid mass. ADRENAL GLANDS: No nodules. KIDNEYS, URETERS and BLADDER: Normal renal size and position. Right lower pole renal hypodensity, 15 mm in diameter, unchanged compared to prior exam.. No hydronephrosis. Bladder is mostly collapsed. PERITONEUM: No ascites or free air. No other fluid collection. BOWEL: Patient is status post colectomy. Ostomy site in the left lower quadrant with large fat filled parastomal hernia. Single loop of mildly prominent, but not pathologically distended (2.8 cm diameter) small bowel loop with air-fluid level is noted. No wall thickening. No obstructing mass lesion. No focal inflammatory changes. LYMPH NODES: No enlarged mesenteric or retroperitoneal lymph nodes. VESSELS: Calcifications throughout most of the abdominal aorta without aneurysmal dilation. No significant stenosis. REPRODUCTIVE ORGANS: Surgically absent. ABDOMINAL WALL: Parastomal fat filled hernia. BONES: No lytic or blastic abnormality. Moderate degenerative disc and endplate changes at L5-S1 with no evidence of critical stenosis. Tip total arthroplasty hardware without evidence of complication. CT/Abdomen/Pelvis without Cont IMPRESSION: No evidence of acute intra-abdominal pathology. Right lower pole renal hypodensity, 50 mL in diameter, appears unchanged in size compared to prior comparison exam. Collapse or absent gallbladder. Total colectomy with left lower quadrant ostomy and associated fat filled parastomal hernia. These findings are unchanged. Electronically Signed: Nazario Hutson DO at 20:30 EDT ,
[2021-10-15] MEDS: Ondansetron 4 MG/2 ML Vial IV (19:49)
[2021-10-15] MEDS: Dicyclomine 20 MG/2 ML Vial IM (19:50)
--- NOTE | 2021-10-15 21:01 | PCM.HP.STD ---
HPI - General General Date of Admission: 10/15/21 Date of Service: 10/15/21 Chief Complaint: Increased ileostomy output, watery, diarrhea, abdominal cramps with mild shortness of breath on exertion. HPI Narrative ASHLEY MÉNDEZ, is a 61 F with multiple comorbidities came to ED with increased ileostomy output, clear watery mainly bilious fluid which required multiple bag changes since yesterday night. Patient also has gastric nature vomiting, multiple times since last night. She feels weak, dehydrated, dizziness and shortness of breath on exertion. Complain of abdominal cramps intermittently in waves 8/10 intensity lasting for about 5 minutes. Denies chest pain or pressure but feels mild soreness in the chest probably due to increased breathing. She feels dizzy and lightheaded on standing, near fall situation but did not fall or syncope. Denies bloody vomiting, hematemesis or blood in the stool/bag, therefore no GI bleed. She also felt mild fever measured temperature 100 degree last night. She took Reglan at home and Lomotil for diarrhea but her symptoms did not improve therefore came to ED. She also had COVID exposure to her friend about 3 days ago. She said that she was closing within 6 feet distance for more than 15 minutes. She had 2 vaccination but no booster dose yet. She had left hip replacement in May 2021 and after that she had redness about 3 months ago and was given antibiotic probably clindamycin. She denies any unusual food intake or suspicion of food poisoning. Denies loss of taste or smell. No sore throat, new cough or URI symptoms. In ED, vitals were noted to be tachycardic, heart rate 148/min, tachypneic respiratory rate 32/min, pulse ox 90% on room air. In the ER, her heart rate improved but still 126/min. Twelve-lead EKG done, individually reviewed and shows sinus tachycardia, 121 bpm, LAFB, LVH with repolarization abnormality. QTc 445 ms. Labs and imaging individually reviewed and discussed in assessment and plan. [facility] Medical History Anemia of chronic renal failure, stage 3 (moderate) Anxiety Arthritis Atherosclerosis of coronary artery bypass graft without angina pectoris Atherosclerotic heart disease of [place] coronary artery without angina pectoris Back pain BiPAP (biphasic positive airway pressure) dependence BMI 31.0-31.9,adult Cardiology follow-up encounter Chronic back pain Chronic diastolic (congestive) heart failure Chronic respiratory failure Chronic respiratory failure with hypoxia, on home O2 therapy CKD (chronic kidney disease) stage 3, GFR 30-59 ml/min COPD (chronic obstructive pulmonary disease) Coronary artery disease COVID-19 vaccine series completed Depression Depression with anxiety Diabetic gastroparesis Dietary restriction DM2 (diabetes mellitus, type 2) Encephalopathy Essential (primary) hypertension Fatty liver FCHL (familial combined hyperlipidemia) Former smoker Gastric reflux High cholesterol History of COVID-19 History of echocardiogram History of edema History of pain when walking History of renal disease History of stress test Hx of diabetic gastroparesis Hx of psoriasis Hyperlipidemia Hypertension Hypertensive chronic kidney disease with stage 1 through stage 4 chronic kidney disease, or unspecified chronic kidney disease Ileostomy present Increased ammonia level Insulin dependent diabetes mellitus Leg cramps Liver mass Loss of hearing Meniere's disease in remission Menieres disease MGUS (monoclonal gammopathy of unknown significance) Migraine headache Myoclonic jerking Non-alcoholic fatty liver disease Nonalcoholic steatohepatitis Obstructive sleep apnea Pancreatitis Preoperative evaluation to rule out surgical contraindication Psoriasis Right thyroid nodule Secondary pulmonary arterial hypertension Shortness of breath on exertion 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 2 diabetes mellitus Thyroid mass Type 2 diabetes mellitus with diabetic polyneuropathy Ulcerative colitis Walker as ambulation aid Wears glasses Home Medications Wheel Chair #1 ea 04/17/20 [Rx Last Taken Unknown] ondansetron 4 mg disintegrating tablet 4 mg PO Q8H PRN nausea and vomiting #30 tabs 09/20/20 [Rx Last Taken Unknown] dicyclomine 20 mg tablet 20 mg PO 4X/DAY PRN abdominal cramps #0 tabs 01/08/21 [Rx Last Taken Unknown] flash glucose sensor (FreeStyle Allison 2 Sensor kit) #2 ea 01/17/21 [Rx Last Taken Unknown] isosorbide dinitrate 30 mg tablet 30 mg PO BID heart #60 tabs 01/28/21 [Rx Last Taken 04/22/21 07:30] pen needle, diabetic 32 gauge x 5/32 (BD Ultra-Fine Key Pen Needle) #200 ea 03/21/21 [Rx Last Taken Unknown] aspirin 81 mg tablet,delayed release 81 mg PO DAILY Check with primary doctor 04/08/21 [History Last Taken 04/15/21] clopidogrel 75 mg tablet 75 mg PO DAILY Check with primary doctor 04/22/21 [History Last Taken 04/15/21] metoclopramide HCl 5 mg tablet (Reglan) 5 mg PO DAILY PRN reflux 04/22/21 [History Last Taken Unknown] buprenorphine 20 mcg/hour weekly transdermal patch 1 patch transdermal QWEEK 05/05/21 [History Last Taken Unknown] hydrochlorothiazide 25 mg tablet 25 mg PO DAILY #90 tabs 05/09/21 [Rx Last Taken Unknown] pantoprazole 40 mg tablet,delayed release 40 mg PO DAILY gerd #90 tabs 05/09/21 [Rx Last Taken Unknown] diphenoxylate-atropine 2.5 mg-0.025 mg tablet (Lomotil) 1 tab PO TID PRN diarrhea #90 tabs 05/19/21 [Rx Last Taken Unknown] Lantus Solostar U-100 Insulin 100 unit/mL (3 mL) subcutaneous pen (insulin glargine) 50 unit (0.5 mL) subcut BID glucose control #90 mL 07/18/21 [Rx Last Taken Unknown] insulin lispro 100 unit/mL subcutaneous pen (Humalog KwikPen (U-100) Insulin) 60 unit (0.6 mL) subcut TID Glucose control #225 mL 07/21/21 [Rx Last Taken Unknown] blood-glucose meter,continuous (Dexcom G6 Blacktop Paver Operator misc) #1 ea 08/07/21 [Rx Last Taken Unknown] blood-glucose sensor (Dexcom G6 Sensor device) #9 ea 08/07/21 [Rx Last Taken Unknown] blood-glucose transmitter (Dexcom G6 Transmitter device) #1 ea 08/07/21 [Rx Last Taken Unknown] atorvastatin 80 mg tablet 80 mg PO QHS CHOLESTEROL LOWERING #90 tabs 08/29/21 [Rx Last Taken Unknown] blood sugar diagnostic (True Metrix Glucose Test Strip) #100 ea 09/01/21 [Rx Last Taken Unknown] insulin pump cart,automated,BT (Omnipod 5 G6 Pods (Gen 5) subcutaneous cartridge) #45 ea 09/01/21 [Rx Last Taken Unknown] metoprolol tartrate 25 mg tablet 25 mg PO BID #180 tabs 09/01/21 [Rx Last Taken Unknown] metoprolol tartrate 50 mg tablet 50 mg PO BID blood pressure #180 tabs 09/01/21 [Rx Last Taken Unknown] betamethasone dipropionate 0.05 % topical cream 1 applic topical DAILY #45 grams 09/02/21 [Rx Last Taken Unknown] ursodiol 300 mg capsule 300 mg PO BID Check with primary doctor #180 caps 09/26/21 [Rx Last Taken Unknown] pregabalin 75 mg capsule 75 mg PO BID pain #60 caps 10/03/21 [Rx Last Taken Unknown] duloxetine 30 mg capsule,delayed release 60 mg PO BID Check with primary doctor 10/06/21 [History Last Taken Unknown] mupirocin 2 % topical ointment 1 applic topical BID PRN Rash 10/15/21 [History Last Taken Unknown] vitamin E (dl, acetate) 180 mg (400 unit) capsule 360 mg PO DAILY 10/15/21 [History Last Taken Unknown] Allergy/AdvReac Type Severity Reaction Status Date / Time aripiprazole [From Abilify] Allergy Intermediate hallucinati Verified 10/15/21 17:54 ons ciprofloxacin Allergy Intermediate Swelling Verified 10/15/21 17:54 cinnamon [Cinnamon] Allergy Anaphylaxis Verified 10/15/21 17:54 Influenza Virus Vaccines Allergy Shortness Verified 10/15/21 17:54 of breath liraglutide [From Victoza] Allergy Anaphylaxis Verified 10/15/21 17:54 metronidazole [From Flagyl] Allergy Hives Verified 10/15/21 17:54 Metronidazole HCl Allergy Hives Verified 10/15/21 17:54 [From Flagyl] Penicillins Allergy Hives Verified 10/15/21 17:54 Sulfa (Sulfonamide Allergy Hives Verified 10/15/21 17:54 Antibiotics) codeine AdvReac Stops Verified 10/15/21 17:54 Ileostomy metformin HCl AdvReac Nausea Verified 10/15/21 17:54 [From Glucophage] ranolazine AdvReac Nausea/Vom/ Verified 10/15/21 17:54 Diarrhea [id number] Reductase AdvReac Nausea/joints Verified 10/15/21 17:54 Inhibitor ache [Sczotzk-Qcv-Bok Reductase Inhibitor] Family History Mother CVA (cerebral vascular accident) Diabetes Brother Heart disease of CAD at 65 Myocardial infarction Pancreatitis Father Cancer lymphomia Lymphoma Grandmother Myocardial infarction of [place] in her 70s Sister COPD (chronic obstructive pulmonary disease) Surgical History H/O colectomy H/O coronary artery bypass surgery (05/18/12) H/O sinus surgery H/O total hysterectomy history closed fissure History of History of cardiac catheterization History of cholecystectomy History of coronary artery stent placement (01/12/18) ileostomy Ileostomy status left thumb surgery Social History Smoking Status: Former smoker quit date: 03/08/12 how long ago did patient quit smoking: quit in 2012; 0.5-1ppd x 30yrs alcohol intake: never substance use type: does not use diet: diabetic caffeine: No eating out: 1-3 times/week what type of physical activity do you participate in: none seatbelt use: always do you feel safe at home: Yes ROS ROS Narrative Constitutional: Reports fatigue and weakness, dizziness. Weak and dehydrated HEENT: Reports systems reviewed and no addt'l complaints, except as documented Respiratory/Chest: As mentioned in HPI. No wheezing. Gastrointestinal: As mentioned in HPI Genitourinary: Dark yellow urine. Decreased amount than normal. Denies burning urination or new urinary tract symptoms Musculoskeletal: Status post left hip replacement. Bilateral lower leg cramps and muscle pain Neurologic: Denies seizure-like activity skin: No ulcer. No rash Endocrinology: Diabetes mellitus type 2, gastroparesis. Reports systems reviewed and no addt'l complaints, except as documented Hematologic/Lymphatic: Reports systems reviewed and no addt'l complaints, except as documented Rest 14 ROS are negative except as mentioned in HPI Vital Signs Vital Signs Vital Signs: 10/15/21 17:54 10/15/21 18:00 10/15/21 18:02 Temperature 98.3 F Temperature Source Temporal Pulse Rate 148 H 123 H Respiratory Rate 32 H 21 H Respiratory Effort Short of Breath Labored Respiratory Pattern Tachypnea Blood Pressure 145/110 H 129/65 H Blood Pressure Mean 121 86 Pulse Ox 90 97 Oxygen Delivery Method Room Air Room Air Room Air 10/15/21 18:57 10/15/21 19:00 10/15/21 20:29 Temperature Temperature Source Pulse Rate 124 H 122 H 126 H Respiratory Rate 23 H 16 21 H Respiratory Effort Respiratory Pattern Blood Pressure 125/75 H 119/80 114/86 H Blood Pressure Mean 91 93 95 Pulse Ox 98 96 95 Oxygen Delivery Method Room Air Room Air Weight Weight: 191 lb 2.252 oz Body Mass Index (BMI) 29.9 Physical Exam Narrative General: Alert, Oriented x3, Cooperative HEENT: Atraumatic, PERRLA, EOMI, Normocephalic Oral: Oral mucosa dry. No Gingival or Mucosal Lesions/ Ulcerations or tongue ulcer Neck: Supple, No JVD, Negative Carotid Bruits Lungs: Air entry diminished in bilateral lung bases. No crepitation/rhonchi/wheezing. No hypoxia. RR 20/min Cardiovascular: Sinus tachycardia, Normal S1, Normal S2, No murmurs. CABG scar Abdomen: Bowel Sounds Present, Soft, Non Tender, nondistended. RLQ ileostomy bag, followed up with bilious fluid. No obvious blood, fecal material seen : No renal angle tenderness. No suprapubic tenderness. Extremities: No edema, Capillary Refill Less than 3 Seconds Skin: No rashes, No breakdown Musculoskeletal: No Tenderness to Palpation of Joints or Extremities. Left hip surgical scar well-healed. No erythema or tenderness. Neurological: Cranial nerves II-XII grossly intact, DTR 2+/4 and Symmetrical, Neuro grossly intact Psych/Mental Status: Flat affect. Results Lab / Micro Data Result Diagrams: 10/15/21 18:14 10/15/21 18:14 Labs: Laboratory Results - last 24 hr 10/15/21 18:14: WBC 17.1 H, RBC 5.91 H, Hgb 15.8 H, Hct 50.3 H, MCV 85.1, MCH 26.7 L, MCHC 31.4 L, RDW Std Deviation 50.4 H, RDW Coeff of Jan 17.1 H, Plt Count 257, MPV 12.5 H, Immature Gran % (Auto) 0.600, Neut % (Auto) 62.2, Lymph % (Auto) 26.7, Woodruff % (Auto) 6.1, Eos % (Auto) 4.0, Baso % (Auto) 0.4, Absolute Neuts (auto) 10.7 H, Absolute Lymphs (auto) 4.58 H, Nucleated RBC % 0 10/15/21 18:14: Sodium 134 L, Potassium 4.4, Chloride 102, Carbon Dioxide 19.0 L, Anion Gap 13, BUN 46 H, Creatinine 3.19 H, Estim Creat Clear Calc 17.55, Est GFR (MDRD) Af Amer 19 L, Est GFR (MDRD) Non-Af 16 L, BUN/Creatinine Ratio 14.4, Glucose 300 H, Calcium 10.2 H, Total Bilirubin 1.20 H, Direct Bilirubin 0.28, AST 15, ALT 19, Alkaline Phosphatase 154 H, Total Protein 8.9 H, Albumin 3.7, Globulin 5.2 H Micro: Microbiology 10/15/21 19:20 Stool Stool Lactoferrin - Final 10/15/21 18:14 Nasal Secretion SARS-CoV-2 & FLU Antigen (Rapid) - Final Radiology Impression Chest X-Ray 10/15/21 18:30 IMPRESSION: No radiographic evidence of acute cardiopulmonary disease. Electronically Signed: Royce Renteria MD at 18:43 EDT , Abdomen/Pelvis CT 10/15/21 19:17 IMPRESSION: No evidence of acute intra-abdominal pathology. Right lower pole renal hypodensity, 50 mL in diameter, appears unchanged in size compared to prior comparison exam. Collapse or absent gallbladder. Total colectomy with left lower quadrant ostomy and associated fat filled parastomal hernia. These findings are unchanged. Electronically Signed: Nazario Hutson DO at 20:30 EDT , Assessment & Plan Assessment/Plan (1) Gastroenteritis: (2) Acute kidney injury: PLAN: Plan This is a 61-year-old female came to ER with increased ileostomy output, watery bilious in nature, increased vomiting, shortness of breath on exertion, dizziness and dehydration and acute kidney injury. 1. 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 IV fluid Ringer lactate 150 mill per hour for 2 L then reevaluate. Patient has mild abdominal cramps. CT abdomen was done and individually reviewed. No evidence of acute intra-abdominal pathology. Total colectomy with end ileostomy with fat filled parastomal hernia. Mild leukocytosis probably due to viral infection. Stool for occult blood, enteric bacteriology panel, C. difficile ordered. Patient has history of short bowel because of total colectomy, done for history of ulcerative colitis. 2. Acute kidney injury, prerenal, on baseline CKD stage G3B: Patient baseline creatinine is around 2.0, varies from 1.8-2.15, estimated creatinine clearance 31 mL/min. Admitted with BUN/creatinine 46/3.19. Patient has normal anion gap metabolic acidosis with bicarb 19. IV fluid Ringer lactate added at 150 mill per hour. Discontinue normal saline. 3. Mild shortness of breath with nonspecific chest soreness: It seems due to increased work of breathing because of dehydration and weak. Chest x-ray no acute cardiopulmonary abnormality. Twelve-lead EKG sinus tachycardia. Patient does not have anginal quality chest pain, chest pressure or heaviness. I do not think patient has COPD exacerbation either. She follows Dr. Baca recently missed her visit 4. Diabetes mellitus type 2 with gastroparesis: 5. History of NAFLD and fatty liver: ALT AST normal. Current phosphatase 154, total bili 1.2. Patient follows Dr. Andino. Patient had liver biopsy in December 2020, macrovesicular stasis disease, F2/F3 by liver biopsy and elastography. No cirrhosis. Patient also has diabetes gastroparesis. On ursodiol, vitamin D, vitamin D, statin and aspirin. 3. Multiple comorbidities include ulcerative colitis with short-bowel syndrome, MGUS, history of past smoking more than 20 packs, chronic hypoxic respiratory failure, avascular necrosis of left hip status post left hip replacement, myoclonic jerking, chronic back pain, psoriasis, coronary artery status post CABG, chronic diastolic heart failure, secondary pulmonary artery hypertension, obstructive sleep apnea, COPD and anemia of chronic kidney disease : Multiple comorbidities complicates the present care and expect difficult and delay recovery. Labs reviewed. H&H 15.8/50.3. Platelet count 257,000. Home medication reconciliation done. Total time of the visit including total time spent in counseling or coordination of care, (more than 50% of the total time, spent in obtaining medical information from nurses and other ancillary care providers,explaining to the patient about labs, imaging, diagnosis and management of active complex medical conditions), review of previous medical record, review of labs and imaging is 50 minutes. Living will/advanced directive/end of life care: Patient does have living will or advanced directive. Patient next to kin is Azucena Borrero, life partner. After discussion of benefits/risks procedures involved with full code, DNR CC arrest and DNR CC, the patient opted for full code. Patient does want artificial life support including intubation, tube feed, ventilator and/chest compression, central venous catheter, vasopressor and DC shock if needed Total time spent in [id number] encounter in discussion of advanced directive 16 minutes. 10/15/21 18:14: WBC 17.1 H, RBC 5.91 H, Hgb 15.8 H, Hct 50.3 H, MCV 85.1, MCH 26.7 L, MCHC 31.4 L, RDW Std Deviation 50.4 H, RDW Coeff of Jan 17.1 H, Plt Count 257, MPV 12.5 H, Immature Gran % (Auto) 0.600, Neut % (Auto) 62.2, Lymph % (Auto) 26.7, [place]ruff % (Auto) 6.1, Eos % (Auto) 4.0, Baso % (Auto) 0.4, Absolute Neuts (auto) 10.7 H, Absolute Lymphs (auto) 4.58 H, Nucleated RBC % 0 10/15/21 18:14: Sodium 134 L, Potassium 4.4, Chloride 102, Carbon Dioxide 19.0 L, Anion Gap 13, BUN 46 H, Creatinine 3.19 H, Estim Creat Clear Calc 17.55, Est GFR (MDRD) Af Amer 19 L, Est GFR (MDRD) Non-Af 16 L, BUN/Creatinine Ratio 14.4, Glucose 300 H, Calcium 10.2 H, Total Bilirubin 1.20 H, Direct Bilirubin 0.28, AST 15, ALT 19, Alkaline Phosphatase 154 H, Total Protein 8.9 H, Albumin 3.7, Globulin 5.2 H Microbiology Past 72 Hours 10/15/21 19:20 Stool Stool Lactoferrin - Final 10/15/21 18:14 Nasal Secretion SARS-CoV-2 & FLU Antigen (Rapid) - Final Clinical Impression(s) from Imaging Studies Chest X-Ray 10/15/21 18:30 IMPRESSION: No radiographic evidence of acute cardiopulmonary disease. Abdomen/Pelvis CT 10/15/21 19:17 IMPRESSION: No evidence of acute intra-abdominal pathology. Right lower pole renal hypodensity, 50 mL in diameter, appears unchanged in size compared to prior comparison exam. Collapse or absent gallbladder. Total colectomy with left lower quadrant ostomy and associated fat filled parastomal hernia. These findings are unchanged. Electronically Signed: Nazario Hutson DO at 20:30 EDT , Charges/Coding Visit Charges Inpatient E&M: 39207 Init Hosp L3 Procedures Hospitalists Procedures: 78970 Advncd Care Plan 30 Min
[2021-10-15] MEDS: Dicyclomine 10 MG Capsule 20 MG PO (23:24)
[2021-10-15] MEDS: Lactated Ringers 1,000 ML 150 ML IV (23:25)
[2021-10-15 23:47] LABS: Magnesium 1.2 mg/dL (1.6-2.6); Phosphorus 4.3 mg/dL (2.5-4.9)
[2021-10-16] VITALS (13 sets, daily range): BP systolic 92–157; BP diastolic 52–73; PULSE 77–127; RESP 14–18; TEMP 36.4–36.5; O2SAT 94–98
[2021-10-16] MEDS: Morphine 2 MG/ML Syringe IV ×4 (00:24→22:45)
--- NOTE | 2021-10-16 01:07 | NURSING ---
LATE ENTRY - 2300 - GLUCOSE PER PT MONITOR 149
[2021-10-16 04:04] LABS: Mucous, Urine 0 SEEN /hpf (<or=2+)
[2021-10-16 04:06] LABS: Color, Urine Yellow (Yellow); Glucose, Dipstick Normal (Normal); Ketone-Dipstick 5 mg/dl (Negative); Leukocyte Esterase-Dipstick 25 /ul (Negative); Nitrite-Dipstick Negative (Negative); Occult Blood-Urine 50 /ul (Negative); Protein-Dipstick 100 mg/dl (Negative); Urine Bilirubin Dipstick 1 mg/dL (Negative); Urine Clarity Clear (Clear); Urine Urobilinogen Normal (Normal)
[2021-10-16] MEDS: 0.9% Saline Lock 10 ML Syringe IV ×2 (04:36→09:47)
[2021-10-16 05:00] LABS: Bacteria 3+ /hpf (None Seen); Hyaline Cast 5-10 SEEN /lpf (0-5); Red Blood Cells-Urine 0-5 SEEN /hpf (0-5); Squamous Epithelial Cells - UA 5-10 SEEN /hpf (5-10); White Blood Cells 0-5 SEEN /hpf (0-5)
[2021-10-16] MEDS: Lactated Ringers 1,000 ML 150 ML IV (06:13)
[2021-10-16] MEDS: Enoxaparin 30 MG/0.3 ML Syringe SC (06:14)
--- NOTE | 2021-10-16 06:26 | NURSING ---
PT STATES PER HER OMNIPOD - GLUCOSE 184
[2021-10-16 06:53] LABS: Absolute Lymphocyte Count 3.88 X10^3/uL (0.83-4.51); Basophil# 0.04 X10^3/uL; Basophil% 0.3 % (0-1); Eosinophil# 0.69 X10^3/uL; Hematocrit 45.7 % (37-47); Hemoglobin 15.1 g/dL (12.0-15.0); Lymphocyte # 3.88 X10^3/ul (0.83-4.51); Lymphocyte % 28.2 % (19-41); Mean Corpuscular Hgb 27.4 pg (27.0-32.0); Mean Corpuscular Volume 82.9 fL (81-99); Mean Platelet Vol. 11.8 fl (6.2-12.0); Monocyte# 1.08 X10^3/uL; Monocyte% 7.9 % (0-10); NRBC Flagged by Analyzer 0 % (0-5); Neutrophil # 7.97 X10^3/uL (2.7-7.7); Platelet Count 197 K/mm3 (150-450); RBC Distribution Width CV 16.7 % (11.6-14.6); RBC Distribution Width SD 49.4 fl (35.1-43.9); Red Blood Count 5.51 M/mm3 (4.2-5.4); White Blood Count 13.7 K/mm3 (4.4-11.0)
[2021-10-16 07:19] LABS: Anion Gap 10 (5-15); BUN 47 mg/dL (7-18); BUN/Creat Ratio 14.9 RATIO (10-20); Calcium,Total 9.7 mg/dL (8.5-10.1); Chloride 108 mmol/L (98-107); Creatinine, Serum 3.15 mg/dL (0.55-1.02); EST Glomerular Filtration Rate 16 mL/min (>60); Est Glom Filt Rate - Afr Amer 19 mL/min (>60); Estimated Creatinine Clearance 17.78 ml/min; Glucose 145 mg/dL (74-106); Potassium 3.9 mmol/L (3.5-5.1); Sodium Level 137 mmol/L (136-145)
--- NOTE | 2021-10-16 07:57 | CPS ---
Pt has ANKITA but does not wear a PAP machine at home nor does she wear oxygen.
[2021-10-16] MEDS: Ondansetron 4 MG/2 ML Vial IV (09:47)
[2021-10-16] MEDS: Magnesium Sulfate 4gm/100mL 4 GM/100 ML IV.SOLN. IV (09:54)
[2021-10-16] MEDS: Acetaminophen 325 MG Tablet 650 MG PO (10:00)
[2021-10-16] MEDS: Dicyclomine 10 MG Capsule 20 MG PO ×2 (10:01→22:46)
[2021-10-16] MEDS: Clopidogrel Bisulfate 75 MG Tablet PO (10:02)
[2021-10-16] MEDS: Vitamin E 400 UNITS Capsule PO (10:02)
[2021-10-16] MEDS: DULoxetine Hcl 60 MG Capsule PO ×2 (10:02→22:42)
[2021-10-16] MEDS: Isosorbide DN 30 MG Tablet PO ×2 (10:02→22:43)
[2021-10-16] MEDS: Pregabalin 75 MG Capsule PO ×2 (10:02→22:45)
[2021-10-16] MEDS: Metoprolol Tartrate 25 MG Tablet PO (10:02)
[2021-10-16] MEDS: Pantoprazole Sodium 40 MG Tablet PO (10:02)
[2021-10-16] MEDS: Metoprolol Tartrate 50 MG Tablet PO (10:02)
[2021-10-16] MEDS: Aspirin E.C. 81 MG Tablet PO (10:02)
[2021-10-16] MEDS: Ursodiol 250 MG Tablet PO ×2 (10:02→22:45)
--- NOTE | 2021-10-16 11:17 | CASEMGMT ---
SVETLANA RAINEY Assessment: Face to Face with pt for initial transition planning/care coordination assessment. SVETLANA RAINEY introduced self and role at [facility], pt voices understanding and consents to assessment. Pt is A/O x4 and answers all questions appropriately at this time. Pt sitting up in bed in no distress. Care providers, pharmacy, and demographics verified/updated. Admitting Dx: gastroenteritis PCP:Alcides Specialists:Keven, pulbrian; Lynsey, cardio; Jacky, nephro; Friend, GI; Esdras, endo; onc but pt is not sure of the name and Basali, pain mgmt Preferred Pharmacy: [facility] Insurance: KENIA Travis Prescription Benefit: yes LW/HPOA: Pt has a LW/DPOA on file at [facility] and her DPOA is Azucena Borrero. LNOK: Azucena Borrero, life partner Living Arrangements: Pt lives alone in a ground level apt with no steps to enter. Pt reports she is I in ADL's and denies concerns at home. Transportation: Pt drives self and denies concerns with transportation. DME/HHC/SNF: Pt has a BGM and insulin with supplies, cane, FWW and w/c. Pt does not use AD currently. Pt obtains her ostomy supplies through [employer]. Pt states she has had HHC in the past but is unsure of the name of the agency. She denies SNF stays. Pt states no concerns with going home at time of dc. Pt states no further concerns/needs. CM to follow. Advised pt to ask CM if any further question/concerns/needs arise, voices understanding. Pt Goal: Home Plan: Home
[2021-10-16] MEDS: Metoclopramide 5 MG TABLET PO (14:10)
--- NOTE | 2021-10-16 14:52 | PN.HOSP_ITS ---
Subjective Subjective Patient states she is had no further emesis but having some intermittent persistent nausea. Jhonathan seems to be helping. Ostomy output remains high. She states at home she was emptying her bag every 15 to 30 minutes whereas typically she only has to empty it 3-5 times daily. She has very minimal amount of colon left and typically her stool is watery however she indicates currently is much more watery than normal for her. Ask if she is in to be able to go home today and I discussed with her I would like her to be able to take in oral fluids better and have her serum creatinine improved more with decreased ostomy output prior to discharge. She voices understanding and is agreeable. Objective Data Objective Data Vital Signs: Vital Signs Temp Pulse Resp BP Pulse Ox O2 Del Method 97.7 F L 85 18 116/67 96 Room Air 10/16/21 14:14 10/16/21 14:29 10/16/21 14:14 10/16/21 14:14 10/16/21 14:14 10/16/21 14:14 Oxygen Delivery Method Room Air Weight: 83.121 kg Body Mass Index (BMI) 28.7 Intake & Output: Intake and Output for Last 24 Hours 10/14/21 10/15/21 10/16/21 23:59 23:59 23:59 Intake Total 1125 / 1185 2584.25 / 2584.25 Output Total 1150 / 1150 Balance 1125 / 1185 1434.25 / 1434.25 Lab / Micro Data Result Diagrams: 10/16/21 06:00 10/16/21 06:00 Labs: Laboratory Results - last 24 hr 10/15/21 18:14: WBC 17.1 H, RBC 5.91 H, Hgb 15.8 H, Hct 50.3 H, MCV 85.1, MCH 26.7 L, MCHC 31.4 L, RDW Std Deviation 50.4 H, RDW Coeff of Jan 17.1 H, Plt Count 257, MPV 12.5 H, Immature Gran % (Auto) 0.600, Neut % (Auto) 62.2, Lymph % (Auto) 26.7, Emery % (Auto) 6.1, Eos % (Auto) 4.0, Baso % (Auto) 0.4, Absolute Neuts (auto) 10.7 H, Absolute Lymphs (auto) 4.58 H, Nucleated RBC % 0 10/15/21 18:14: Sodium 134 L, Potassium 4.4, Chloride 102, Carbon Dioxide 19.0 L , Anion Gap 13, BUN 46 H, Creatinine 3.19 H, Estim Creat Clear Calc 17.55, Est GFR (MDRD) Af Amer 19 L, Est GFR (MDRD) Non-Af 16 L, BUN/Creatinine Ratio 14.4, Glucose 300 H, Calcium 10.2 H, Total Bilirubin 1.20 H, Direct Bilirubin 0.28, AST 15, ALT 19, Alkaline Phosphatase 154 H, Total Protein 8.9 H, Albumin 3.7, Globulin 5.2 H 10/15/21 18:14: Phosphorus 4.3, Magnesium 1.2 L 10/15/21 21:44: COVID-19 ([facility]) Not Detected 10/16/21 03:50: Urine Color Yellow, Urine Clarity Clear, Urine pH 5.0, Ur Specific [place] 1.020, Urine Protein 100 H, Urine Glucose (UA) Normal, Urine Ketones 5 H, Urine Occult Blood 50 H, Urine Nitrite Negative, Urine Bilirubin 1 H, Urine Urobilinogen Normal, Ur Leukocyte Esterase 25 H, Urine RBC 0-5 SEEN, Urine WBC 0-5 SEEN, Ur Squamous Epith Cells 5-10 SEEN, Urine Bacteria 3+, Hyaline Casts 5-10 SEEN, Urine Mucus 0 SEEN 10/16/21 06:00: WBC 13.7 H, RBC 5.51 H, Hgb 15.1 H, Hct 45.7, MCV 82.9, MCH 27.4, MCHC 33.0 D, RDW Std Deviation 49.4 H, RDW Coeff of Jan 16.7 H, Plt Count 197, MPV 11.8, Immature Gran % (Auto) 0.600, Neut % (Auto) 58.0, Lymph % (Auto) 28.2, Emery % (Auto) 7.9, Eos % (Auto) 5.0, Baso % (Auto) 0.3, Absolute Neuts (auto) 8.0 H, Absolute Lymphs (auto) 3.88, Nucleated RBC % 0 10/16/21 06:00: Sodium 137, Potassium 3.9, Chloride 108 H, Carbon Dioxide 19.0 L , Anion Gap 10, BUN 47 H, Creatinine 3.15 H, Estim Creat Clear Calc 17.78, Est GFR (MDRD) Af Amer 19 L, Est GFR (MDRD) Non-Af 16 L, BUN/Creatinine Ratio 14.9, Glucose 145 H, Calcium 9.7 Micro: Microbiology 10/15/21 19:20 Stool Stool Lactoferrin - Final 10/15/21 19:20 Stool Enteric Bacteriology - Final 10/15/21 19:20 Stool C. difficile DNA Amplification - Final 10/15/21 19:20 Stool Stool Occult Blood (MAYTE) - Final 10/15/21 18:14 Nasal Secretion SARS-CoV-2 & FLU Antigen (Rapid) - Final Radiography Diagnostic Testing: Radiology Impression Chest X-Ray 10/15/21 18:30 IMPRESSION: No radiographic evidence of acute cardiopulmonary disease. Electronically Signed: Royce Renteria MD at 18:43 EDT , Abdomen/Pelvis CT 10/15/21 19:17 IMPRESSION: No evidence of acute intra-abdominal pathology. Right lower pole renal hypodensity, 50 mL in diameter, appears unchanged in size compared to prior comparison exam. Collapse or absent gallbladder. Total colectomy with left lower quadrant ostomy and associated fat filled parastomal hernia. These findings are unchanged. Electronically Signed: Nazario Hutson DO at 20:30 EDT , Physical Exam Const alert, oriented x3, no apparent distress and well nourished Constitutional Narrative: Overweight white female lying in bed, appears comfortable and nontoxic HEENT head/scalp atraumatic and moist oral mucous membranes Resp normal respiratory effort, no retractions, no use of accessory muscles and clear to auscultation bilaterally Auscultation: Negative for crackles, rales, rhonchi or wheezes Cardio regular rate, regular rhythm, S1 normal heart sound, S2 normal heart sound, no murmurs, no rub, no gallops, no clicks and no JVD GI GI Narrative: Bowel sounds are hyperactive, ostomy bag is markedly distended with watery stool in the bag, no significant tenderness with palpation and abdomen is not distended, abdomen is soft Auscultation: hyperactive bowel sounds Extremity no clubbing, cyanosis or edema Neuro oriented x3, moves all extremities and no focal motor deficits Speech: speech normal Psych affect normal Assessment & Plan Assessment/Plan (1) Nausea & vomiting: (2) Acute kidney injury: (3) Gastroenteritis: (4) Dehydration: (5) Hypomagnesemia: PLAN: Plan Suspected gastroenteritis -COVID-19 is negative -Ova and parasites are pending -Stool lactoferrin negative -Enteric pathogens are negative -C. 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 difficile are negative -Continue chronic home medications History of gout -Continue medication Diabetic neuropathy -Continue home gabapentin GERD -Continue home Protonix DM-2 -Patient takes 50 units of Lantus at home at baseline -Restart insulin at 25 units at at bedtime with a sliding scale -Start sliding scale insulin -Accu-Cheks -Carb controlled diet Hypertension -Continue home metoprolol -Continue home isosorbide dinitrate -Hold hydrochlorothiazide with renal function Hyperlipidemia -Continue home statin DVT prophylaxis -Stop enoxaparin with renal function -Start heparin 3 times daily CODE STATUS -full code Charges/Coding Visit Charges Inpatient E&M: 63707 Subs Hosp L2
--- NOTE | 2021-10-16 20:17 | EKG12_ITS ---
Test Reason : CP Blood Pressure : / mmHG Vent. Rate : 074 BPM Atrial Rate : 074 BPM P-R Int : 170 ms QRS Dur : 096 ms QT Int : 430 ms P-R-T Axes : 032 -26 161 degrees QTc Int : 477 ms Normal sinus rhythm Left ventricular hypertrophy ST/T wave abnormality: Consider repolarization abnormality vs. myocardial ischemia Abnormal ECG Confirmed by COURTNEY DOMINGUEZ, NIXON ([id number]), editor & co founder ISABELLA BUTLER ([id number]) on 10/18/2021 7:34:57 AM Referred By: MARGARITO Confirmed By:NIXON VALDEZ MD
--- NOTE | 2021-10-16 21:18 | PCM.HOSP.N ---
Hospitalist Note Nurse called me that patient is having chest pain. I have personally maintained and saw the patient. Actually patient states she is having chest pain since 3 AM feels like pressure exacerbated by movement and deep breathing. She is still not short of breath. No radiation of pain to arms, neck, back or jaw. No dizziness, near-syncope or syncope. On exam Chest: Reproducible tenderness present on palpation in midsternal and lower chest area. S1-S2 regular. Status post CABG. Lungs: Air entry bilateral equal, diminished in lung bases. No crepitation/rhonchi. Abdomen: Ileostomy bag has fecal matter, liquid consistency. No blood. Soft, nontender bowel sound present. Patient still has abdominal cramps. Twelve-lead EKG done. It shows normal sinus rhythm with deep T wave inversion V1 to V6, 1 and aVL. Previous EKG of 10/15/2021 was similar, symptoms dentine worsen V1 to V3, 1 and aVL. T wave inversion is more different in the current EKG. Troponin stat ordered. Pending Overall clinically with reproducible tenderness since patient has musculoskeletal chest pain/radiation from abdominal wall/cramps. She states it does not feel like her previous CT. History of quadruple bypass and 11 stents in the past.
[2021-10-16 21:41] LABS: Troponin-I HS 16 pg/mL (3.0-54.0)
[2021-10-16] MEDS: Heparin Injection (Vial) 5,000 UNIT/ML VIAL 5000 UNIT SC (22:42)
[2021-10-16] MEDS: Atorvastatin Calcium 80 MG Tablet PO (22:44)
[2021-10-16] MEDS: Diphenoxylate/Atrop 1 Tablet PO (22:44)
[2021-10-17] VITALS (12 sets, daily range): BP systolic 105–138; BP diastolic 60–84; PULSE 63–81; RESP 12–18; TEMP 36.4–36.8; O2SAT 93–97
[2021-10-17] MEDS: Metoprolol Tartrate 25 MG Tablet PO ×3 (00:48→21:22)
[2021-10-17] MEDS: Metoprolol Tartrate 50 MG Tablet PO ×3 (00:48→21:21)
[2021-10-17] MEDS: Heparin Injection (Vial) 5,000 UNIT/ML VIAL 5000 UNIT SC ×3 (05:41→21:20)
[2021-10-17] MEDS: Diphenoxylate/Atrop 1 Tablet PO ×3 (05:41→21:21)
[2021-10-17] MEDS: Dicyclomine 10 MG Capsule 20 MG PO ×3 (05:44→21:22)
[2021-10-17] MEDS: Morphine 2 MG/ML Syringe IV (05:55)
[2021-10-17 05:56] LABS: Absolute Lymphocyte Count 3.05 X10^3/uL (0.83-4.51); Basophil# 0.04 X10^3/uL; Basophil% 0.4 % (0-1); Eosinophil# 0.68 X10^3/uL; Eosinophils% 6.5 % (0-5); Hematocrit 41.7 % (37-47); Hemoglobin 13.6 g/dL (12.0-15.0); Lymphocyte # 3.05 X10^3/ul (0.83-4.51); Lymphocyte % 29.1 % (19-41); Mean Corp Hgb Conc 32.6 g/dL (32-36); Mean Corpuscular Hgb 27.2 pg (27.0-32.0); Mean Corpuscular Volume 83.4 fL (81-99); Mean Platelet Vol. 12.4 fl (6.2-12.0); Monocyte# 0.69 X10^3/uL; Monocyte% 6.6 % (0-10); NRBC Flagged by Analyzer 0 % (0-5); Neutrophil # 5.97 X10^3/uL (2.7-7.7); Neutrophil % 56.8 % (47-70); Platelet Count 202 K/mm3 (150-450); RBC Distribution Width CV 16.3 % (11.6-14.6); RBC Distribution Width SD 49.1 fl (35.1-43.9); White Blood Count 10.5 K/mm3 (4.4-11.0)
[2021-10-17] MEDS: 0.9% Saline Lock 10 ML Syringe IV ×2 (05:56→10:14)
[2021-10-17 06:47] LABS: ALB/GLOB Ratio 0.7 RATIO (0.9-2.4); AST(SGOT) 19 U/L (15-37); Alanine Aminotransfer ALT/SGPT 18 U/L (13-56); Alkaline Phosphatase 142 U/L (45-117); Anion Gap 8 (5-15); BUN 46 mg/dL (7-18); BUN/Creat Ratio 15.9 RATIO (10-20); Calcium,Total 9.2 mg/dL (8.5-10.1); Chloride 103 mmol/L (98-107); Creatinine, Serum 2.89 mg/dL (0.55-1.02); EST Glomerular Filtration Rate 18 mL/min (>60); Est Glom Filt Rate - Afr Amer 21 mL/min (>60); Estimated Creatinine Clearance 19.38 ml/min; Globulin 4.5 g/dL (2.2-4.2); Glucose 137 mg/dL (74-106); Magnesium 2.4 mg/dL (1.6-2.6); Protein, Total 7.5 g/dL (6.4-8.2); Sodium Level 132 mmol/L (136-145)
--- NOTE | 2021-10-17 07:29 | NURSING ---
pt utilized call light and requesting nurses to room reports hallucincations Gema RN, Ivett RN and said nurse to room. vitals obtained. pt a& ox3, slightly drowsy but conversant appropriately. smile =, tongue midline. pt reports i have been having hallucinations. I saw and alligator coming out of the TV and I have seen a man walking in the room. i sometimes see shadow figures things being warped with vision at times. inquired as to when this started, pt reports i had a little bit before the morphine but i didn't tell anyone. pt blood sugar checked via her monitoring machine and is 156. pt then states i started after i got back to bed from closing the blind, i got really nauseated too and then went back to bed and noticed it. Nausea is better since i am laying down. pt reports feeling nervous. Inquired if any numbness or tingling and pt reports my left hand, it feels like i can't move it while pt is reporting this, pt visibly moving hand/fingers/arm around. pt then states i have some in my right hand and also ears are tingling after further assessment/inquiry pt reports this is chronic, they think it may be from psoriasis. informed pt said nurse inquiring for any new issues/changes and pt then states oh, that is chronic for my in my hands/ears. during this time, pt uses both hands/arms and touches earlobes without any delayed or irregular movements. Bed exit is on. Informed pt of safety/call light use and pt is agreeable to comply. pt states the visual halluciations are not making me afraid because i know they are not real, but the alligator itself was a little scary. Will notify . vitals: 138/84, 97% spO2 on room air, pulse 67, temp 98.1 and resps 18.
[2021-10-17] MEDS: Glucerna Shake 120 ML LIQUID PO (08:46)
[2021-10-17] MEDS: Aspirin E.C. 81 MG Tablet PO (08:47)
[2021-10-17] MEDS: Clopidogrel Bisulfate 75 MG Tablet PO (08:47)
[2021-10-17] MEDS: Vitamin E 400 UNITS Capsule PO (08:47)
[2021-10-17] MEDS: Ursodiol 250 MG Tablet PO ×2 (08:47→21:22)
[2021-10-17] MEDS: Isosorbide DN 30 MG Tablet PO ×2 (08:47→21:21)
[2021-10-17] MEDS: Acetaminophen 325 MG Tablet 650 MG PO ×2 (08:47→14:30)
[2021-10-17] MEDS: Pantoprazole Sodium 40 MG Tablet PO (08:47)
[2021-10-17] MEDS: DULoxetine Hcl 60 MG Capsule PO ×2 (08:48→21:20)
[2021-10-17] MEDS: Pregabalin 75 MG Capsule PO ×2 (08:48→21:22)
[2021-10-17] MEDS: Lactated Ringers 1,000 ML 100 ML IV ×2 (10:14→20:14)
--- NOTE | 2021-10-17 10:33 | CASEMGMT ---
SVETLANA RAINEY in to pt room, pt lying in bed. Discussed dc planning. Pt states she doesn't feel that she will need any therapy post dc. She states her vp revenue cycle is working on getting an aide for her. Updated SW that she has a vp revenue cycle. Discussed HHC or outpatient therapy. Pt states once she gets hydrated then she will be fine. She will notify SVETLANA RAINEY if this should change.
--- NOTE | 2021-10-17 11:40 | CASEMGMT ---
Social Work SW met with pt and introduced self and role of SW. Pt states she [facility]. Per pt, [facility] made a referral to an agency to help pt get services at home and pt is waiting on them to call and set up home visit. Pt is uncertain if this is [facility] but SW confirms this does sound like their services. Phone call to [facility]. Pt is currently not receiving services. Pt denies any needs upon discharge. KIT Mendez
--- NOTE | 2021-10-17 13:15 | PCM.PN.HOSP ---
Subjective Subjective Patient complains of a lot of chronic issues but nothing new. She states her appetite has improved but she still having some intermittent nausea but no vomiting. She contributes this to her chronic gastroparesis. Ostomy output has improved since initiation of Imodium but still having abdominal cramping which was requiring opiates overnight. Patient suffers from slight hallucinations and some intermittent confusions with morphine. This has since been discontinued. Objective Data Objective Data Vital Signs: Vital Signs Temp Pulse Resp BP Pulse Ox O2 Del Method 98.1 F 67 18 138/84 H 97 Room Air 10/17/21 07:38 10/17/21 08:47 10/17/21 07:38 10/17/21 07:38 10/17/21 07:45 10/17/21 07:45 Oxygen Delivery Method Room Air Weight: 85.981 kg Body Mass Index (BMI) 28.7 Intake & Output: Intake and Output for Last 24 Hours 10/15/21 10/16/21 10/17/21 23:59 23:59 23:59 Intake Total 1125 / 1185 2924.25 / 2924.25 400 / 400 Output Total 1150 / 1150 1200 / 1200 Balance 1125 / 1185 1774.25 / 1774.25 -800 / -800 Lab / Micro Data Result Diagrams: 10/17/21 05:12 10/17/21 05:12 Labs: Laboratory Results - last 24 hr 10/16/21 19:00: COVID-19 ([facility]) Not Detected 10/16/21 21:05: Troponin I High Sens 16 10/17/21 05:12: WBC 10.5, RBC 5.00, Hgb 13.6, Hct 41.7, MCV 83.4, MCH 27.2, MCHC 32.6, RDW Std Deviation 49.1 H, RDW Coeff of Jan 16.3 H, Plt Count 202, MPV 12.4 H, Immature Gran % (Auto) 0.600, Neut % (Auto) 56.8, Lymph % (Auto) 29.1, [place] % (Auto) 6.6, Eos % (Auto) 6.5 H, Baso % (Auto) 0.4, Absolute Neuts (auto) 6.0, Absolute Lymphs (auto) 3.05, Nucleated RBC % 0 10/17/21 05:12: Sodium 132 L, Potassium 4.0, Chloride 103, Carbon Dioxide 21.0, Anion Gap 8, BUN 46 H, Creatinine 2.89 H, Estim Creat Clear Calc 19.38, Est GFR (MDRD) Af Amer 21 L, Est GFR (MDRD) Non-Af 18 L, BUN/Creatinine Ratio 15.9, Glucose 137 H, Calcium 9.2, Magnesium 2.4, Total Bilirubin 0.80, AST 19, ALT 18, Alkaline Phosphatase 142 H, Total Protein 7.5, Albumin 3.0 L, Globulin 4.5 H, Albumin/Globulin Ratio 0.7 L Micro: Microbiology 10/16/21 03:50 Urine, Clean Catch Urine Culture - Final Mixed Gram Positive Organisms 10/15/21 19:20 Stool Stool Lactoferrin - Final 10/15/21 19:20 Stool Enteric Bacteriology - Final 10/15/21 19:20 Stool C. difficile DNA Amplification - Final 10/15/21 19:20 Stool Stool Occult Blood (MAYTE) - Final 10/15/21 18:14 Nasal Secretion SARS-CoV-2 & FLU Antigen (Rapid) - Final Physical Exam Const alert, oriented x3, no apparent distress and well nourished Constitutional Narrative: Overweight white female lying in bed, appears comfortable and nontoxic, nursing at bedside HEENT head/scalp atraumatic and moist oral mucous membranes Resp normal respiratory effort, no retractions, no use of accessory muscles and clear to auscultation bilaterally Auscultation: Negative for crackles, rales, rhonchi or wheezes Cardio regular rate, regular rhythm, S1 normal heart sound, S2 normal heart sound, no murmurs, no rub, no gallops, no clicks and no JVD GI GI Narrative: Bowel sounds are normoactive, ostomy bag with less stool and patient has not emptied recently, no significant tenderness with palpation and abdomen is not distended, abdomen is soft Extremity no clubbing, cyanosis or edema Neuro oriented x3, moves all extremities and no focal motor deficits Speech: speech normal Psych affect normal Mood & Affect: anxious Assessment & Plan Assessment/Plan (1) Nausea & vomiting: (2) Acute kidney injury: (3) Gastroenteritis: (4) Dehydration: (5) Hypomagnesemia: PLAN: Plan Suspected gastroenteritis -COVID-19 is negative x2/PCR negative x1 -Ova and parasites are pending -Stool lactoferrin negative -Enteric pathogens are negative -C. 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 -Since it is slowly trending down we will avoid any further work-up at this time however if not improved in the next 24 hours we will pursue further work-up with regards to her renal failure -Continue IV fluids with LR at 100 cc/h Hypomagnesemia -Resolved History of ulcerative colitis -Status post colectomy -Has short gut syndrome at -Continue home antidiarrheal agents -Imodium is currently scheduled secondary to the above but would go back to as needed on discharge -Continue chronic home medications History of gout -Continue medication Diabetic neuropathy -Continue home gabapentin GERD -Continue home Protonix DM-2 -Patient takes 50 units of Lantus at home at baseline -Continue insulin at 25 units at at bedtime with a sliding scale--> fasting blood sugar was 137 this morning -sliding scale insulin -Accu-Cheks -Carb controlled diet Hypertension -Continue home metoprolol -Continue home isosorbide dinitrate -Continue to hold hydrochlorothiazide with renal function Hyperlipidemia -Continue home statin DVT prophylaxis -Start heparin 3 times daily CODE STATUS -full code Charges/Coding Visit Charges Inpatient E&M: 76123 Subs Hosp L2
[2021-10-17] MEDS: Metoclopramide 5 MG TABLET PO (14:30)
[2021-10-17 20:23] LABS: Giardia Lamblia, Stool EIA Negative (Negative)
[2021-10-17] MEDS: oxyCODONE 5 MG Tablet PO (21:19)
[2021-10-17] MEDS: Atorvastatin Calcium 80 MG Tablet PO (21:21)
[2021-10-18 03:01] VITALS: BP 120/55; PULSE 64; RESP 14; TEMP 36.8; O2SAT 95
[2021-10-18] MEDS: Dicyclomine 10 MG Capsule 20 MG PO (03:05)
[2021-10-18] MEDS: Diphenoxylate/Atrop 1 Tablet PO (06:22)
[2021-10-18] MEDS: Lactated Ringers 1,000 ML 100 ML IV (06:22)
[2021-10-18] MEDS: Heparin Injection (Vial) 5,000 UNIT/ML VIAL 5000 UNIT SC (06:23)
[2021-10-18 06:50] LABS: Anion Gap 5 (5-15); BUN 42 mg/dL (7-18); BUN/Creat Ratio 17.2 RATIO (10-20); Calcium,Total 8.8 mg/dL (8.5-10.1); Chloride 109 mmol/L (98-107); Creatinine, Serum 2.44 mg/dL (0.55-1.02); EST Glomerular Filtration Rate 21 mL/min (>60); Est Glom Filt Rate - Afr Amer 26 mL/min (>60); Estimated Creatinine Clearance 22.95 ml/min; Glucose 154 mg/dL (74-106); Potassium 4.2 mmol/L (3.5-5.1); Sodium Level 135 mmol/L (136-145)
[2021-10-18 07:45] LABS: Bedside Glucose 104 mg/dL (74-106)
--- NOTE | 2021-10-18 07:50 | NURSING ---
pt. complaining of multiple hallucinations throughout night, stating she sees men in her closet and thought she was petting her cat at one point. This RN asked her blood sugar during focused assessment and pt. stated it was 192. Pt. called out at 06:30 stating she felt as though she was going to pass out because of her blood sugar. This RN asked to see her blood sugar on her personal insulin pump. Her blood sugar was 59 and showed she gave herself an 18.1 unit bolus at 05:00. This RN gave the pt. orange juice and cookies. This RN notified Dr. Brewster and removed personal insulin pump. Rechecked blood sugar and it was 104. Orders placed to check insulin per hospital ACHS checks and sliding scale coverage.
[2021-10-18 08:33] VITALS: O2SAT 93
[2021-10-18 09:00] VITALS: BP 102/65; PULSE 88; RESP 16; TEMP 36.6; O2SAT 96
[2021-10-18 09:59] VITALS: BP 114/59; PULSE 88
[2021-10-18] MEDS: Clopidogrel Bisulfate 75 MG Tablet PO (09:59)
[2021-10-18] MEDS: Metoprolol Tartrate 50 MG Tablet PO (09:59)
[2021-10-18] MEDS: Vitamin E 400 UNITS Capsule PO (09:59)
[2021-10-18] MEDS: Metoprolol Tartrate 25 MG Tablet PO (09:59)
[2021-10-18] MEDS: Ursodiol 250 MG Tablet PO (09:59)
[2021-10-18] MEDS: Pantoprazole Sodium 40 MG Tablet PO (09:59)
[2021-10-18] MEDS: Aspirin E.C. 81 MG Tablet PO (09:59)
[2021-10-18] MEDS: DULoxetine Hcl 60 MG Capsule PO (10:00)
[2021-10-18] MEDS: Isosorbide DN 30 MG Tablet PO (10:00)
[2021-10-18] MEDS: Glucerna Shake 120 ML LIQUID PO (10:10)
[2021-10-18] MEDS: Pregabalin 75 MG Capsule PO (10:10)
[2021-10-18 12:35] LABS: Bedside Glucose 246 mg/dL (74-106)
[2021-10-18] MEDS: Insulin Lispro 100 UNIT/ML INSULN.PEN 10 UNIT SC (12:37)
[2021-10-18 13:24] LABS: Magnesium 1.9 mg/dL (1.6-2.6)
--- NOTE | 2021-10-18 14:39 | PCM.DC ---
Discharge Instructions Diet Discharge Diet: - (Resume your home diet) Activity Discharge Activity: Return to Normal Activity Weight Bearing Status: Full weight bearing Follow Up Care Test Results: Test results from this visit will be discussed in further detail at your follow-up appointment, if applicable. Discharge Plan Admission Admit Date/Time: 10/15/21 21:02 Primary Reason for Your Visit: Gastroenteritis, acute kidney injury Attending Provider: Roberto Brewster Primary Care Provider: Mala Mcgrath Consulting Providers: Castillo Ferris ; Georgia Cain Discharge Orders/Prescriptions Prescriptions: New (DME) Insulin Basal Pump (Pt's Own) [Pump, Basal] See Rx Instructions .ROUTE .MEDSUPPLY Qty: 1 0RF Rx Instructions: use as directed Continued (DME) Wheel Chair See Rx Instructions .Route .MEDSUPPLY Qty: 1 0RF Rx Instructions: As directed (DME) FreeStyle Allison 2 Sensor Kit See Rx Instructions .ROUTE .MEDSUPPLY Qty: 2 11RF Rx Instructions: As directed ondansetron 4 mg tablet,disintegrating 4 mg PO Q8H PRN (Reason: nausea and vomiting) Qty: 30 0RF duloxetine 30 mg capsule,delayed release(DR/EC) 60 mg PO BID (DME) pen needle, diabetic [BD Ultra-Fine Key Pen Needle] 32 gauge x 5/32 needle See Rx Instructions .ROUTE .MEDSUPPLY Qty: 200 8RF Rx Instructions: takes 5 injection/day buprenorphine 20 mcg/hour patch weekly 1 patch transdermal QWEEK Label Comments: APPLY 1 PATCH EVERY 7 DAYS Rx Instructions: pt dose currently has on is 10mcg on her right anterior shoulder 10/16/21 dicyclomine 20 mg tablet 20 mg PO 4X/DAY PRN (Reason: abdominal cramps) Qty: 0 0RF aspirin 81 mg Tablet,Delayed Release (Dr/Ec) 81 mg PO DAILY clopidogrel 75 mg tablet 75 mg PO DAILY Hold Instructions: Resume the day after completion of Eliquis Rx Instructions: TAKE 1 TABLET BY MOUTH EVERY DAY metoclopramide HCl [Reglan] 5 mg Tablet 5 mg PO DAILY PRN (Reason: reflux) mupirocin 2 % ointment 1 applic topical BID PRN (Reason: Rash) Rx Instructions: around wound vitamin E (dl, acetate) 180 mg (400 unit) capsule 360 mg PO DAILY isosorbide dinitrate 30 mg tablet 30 mg PO BID Qty: 60 11RF pantoprazole 40 mg tablet,delayed release (DR/EC) 40 mg PO DAILY Qty: 90 3RF diphenoxylate-atropine [Lomotil] 2.5-0.025 mg tablet 1 tab PO TID PRN (Reason: diarrhea) Qty: 90 0RF insulin lispro [Humalog KwikPen Insulin] 100 unit/mL insulin pen 60 unit SUBCUT TID MDD 250 Qty: 225 1RF Rx Instructions: plus SSI: 180 + 5; 220 +10; 240 +15; 270 [place]20 [place] [place] Dexcom G6 Assembly Press 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 Misc See Rx Instructions .ROUTE .MEDSUPPLY Qty: 1 0RF Rx Instructions: As directed [place] [place] Dexcom G6 Sensor Device See Rx Instructions .ROUTE .MEDSUPPLY Qty: 9 3RF Rx Instructions: 1 sensor every 10 days [place] [place] Dexcom G6 Transmitter Device See Rx Instructions .ROUTE .MEDSUPPLY Qty: 1 3RF Rx Instructions: 1 transmitter every 90 days atorvastatin 80 mg tablet 80 mg PO QHS Qty: 90 3RF Label Comments: cholesterol [place] [place] True Metrix Glucose Test Strip Strip See Rx Instructions .Route Qty: 100 6RF Rx Instructions: 3 times per day metoprolol tartrate 50 mg tablet 50 mg PO BID Qty: 180 3RF Rx Instructions: TAKES 50mg and 25mg TO MAKE 75 MG DOSE. metoprolol tartrate 25 mg tablet 25 mg PO BID Qty: 180 3RF Rx Instructions: Takes 25 mg + 50 mg tablet to + 75 mg BID [place] [place] Omnipod 5 G6 Pods (Gen 5) Cartridge See Rx Instructions .Route Qty: 45 1RF Rx Instructions: 1 pod q 48 hours betamethasone dipropionate 0.05 % cream 1 applic topical DAILY Qty: 45 2RF ursodiol 300 mg capsule 300 mg PO BID Qty: 180 1RF pregabalin 75 mg capsule 75 mg PO BID Qty: 60 1RF Discontinued hydrochlorothiazide 25 mg tablet 25 mg PO DAILY Qty: 90 3RF Lantus Solostar U-100 Insulin 100 unit/mL (3 mL) insulin pen 50 unit subcut BID Qty: 90 1RF Referrals / Follow Up: Mala Mcgrath MD [Primary Care Provider] - Within 2 Weeks (get your BMP (lab) rechecked) Disposition Disposition (needs filled in before D/C Order can be placed): Home, Self Care
--- NOTE | 2021-10-18 14:58 | DS.PCM_ITS ---
Providers Date of Admission: 10/15/21 Date of Discharge: 10/18/21 Primary Care Physician: Dr. Mala Mcgrath MD Reason For Visit: GASTROENTERITIS Diagnosis Discharge Diagnosis (1) Nausea & vomiting: Status: Acute Code(s): R11.2 - Nausea with vomiting, unspecified (2) Acute kidney injury: Status: Acute Code(s): N17.9 - Acute kidney failure, unspecified (3) Gastroenteritis: Status: Acute Code(s): K52.9 - Noninfective gastroenteritis and colitis, unspecified (4) Dehydration: Status: Acute Code(s): E86.0 - Dehydration (5) Hypomagnesemia: Status: Acute Code(s): E83.42 - Hypomagnesemia Plan Final diagnosis: #1 acute gastroenteritis-viral in nature #2 acute kidney injury secondary to dehydration on a backdrop of chronic kidney disease stage IIIb #3 ulcerative colitis-chronic #4 type 2 diabetes #5 hypomagnesemia Medications at Discharge Home Medications Wheel Chair #1 ea 04/17/20 ondansetron 4 mg disintegrating tablet 4 mg PO Q8H PRN nausea and vomiting #30 tabs 09/20/20 dicyclomine 20 mg tablet 20 mg PO 4X/DAY PRN abdominal cramps #0 tabs 01/08/21 flash glucose sensor (FreeStyle Allison 2 Sensor kit) #2 ea 01/17/21 isosorbide dinitrate 30 mg tablet 30 mg PO BID heart #60 tabs 01/28/21 pen needle, diabetic 32 gauge x 5/32 (BD Ultra-Fine Key Pen Needle) #200 ea 03/21/21 aspirin 81 mg tablet,delayed release 81 mg PO DAILY Check with primary doctor 04/08/21 clopidogrel 75 mg tablet 75 mg PO DAILY Check with primary doctor 04/22/21 metoclopramide HCl 5 mg tablet (Reglan) 5 mg PO DAILY PRN reflux 04/22/21 buprenorphine 20 mcg/hour weekly transdermal patch 1 patch transdermal QWEEK Check with primary doctor 05/05/21 pantoprazole 40 mg tablet,delayed release 40 mg PO DAILY gerd #90 tabs 05/09/21 diphenoxylate-atropine 2.5 mg-0.025 mg tablet (Lomotil) 1 tab PO TID PRN diarrhea #90 tabs 05/19/21 insulin lispro 100 unit/mL subcutaneous pen (Humalog KwikPen (U-100) Insulin) 60 unit (0.6 mL) subcut TID Glucose control #225 mL 07/21/21 blood-glucose meter,continuous (Dexcom G6 Cuff Presser misc) #1 ea 08/07/21 blood-glucose sensor (Dexcom G6 Sensor device) #9 ea 08/07/21 blood-glucose transmitter (Dexcom G6 Transmitter device) #1 ea 08/07/21 atorvastatin 80 mg tablet 80 mg PO QHS CHOLESTEROL LOWERING #90 tabs 08/29/21 blood sugar diagnostic (True Metrix Glucose Test Strip) #100 ea 09/01/21 insulin pump cart,automated,BT (Omnipod 5 G6 Pods (Gen 5) subcutaneous cartridge) #45 ea 09/01/21 metoprolol tartrate 25 mg tablet 25 mg PO BID #180 tabs 09/01/21 metoprolol tartrate 50 mg tablet 50 mg PO BID blood pressure #180 tabs 09/01/21 betamethasone dipropionate 0.05 % topical cream 1 applic topical DAILY #45 grams 09/02/21 ursodiol 300 mg capsule 300 mg PO BID Check with primary doctor #180 caps 09/26/21 pregabalin 75 mg capsule 75 mg PO BID pain #60 caps 10/03/21 duloxetine 30 mg capsule,delayed release 60 mg PO BID Check with primary doctor 10/06/21 mupirocin 2 % topical ointment 1 applic topical BID PRN Rash 10/15/21 vitamin E (dl, acetate) 180 mg (400 unit) capsule 360 mg PO DAILY 10/15/21 Insulin Basal Pump (Pt's Own) [Pump, Basal] #1 ea 10/18/21 Hospital Course Operations None Procedures None Summary of Care Provided Minutes Spent on Discharge: 31 Hospital Course: 61-year-old white female was seen in the emergency room at [facility] with a chief complaint of vomiting and diarrhea. Work-up in the emergency room included labs which revealed a BUN of 46 and a creatinine of 3.19, white blood cell count was 17.1, COVID and influenza tests were negative. CT scan of the abdomen and pelvis was obtained and revealed no acute abnormality. Patient was admitted to [place] [address] for gastroenteritis and acute kidney injury secondary to dehydration, she was given IV fluids and her labs were monitored. Still studies did not reveal the cause of her gastroenteritis, it was felt however that her gastroenteritis was secondary to a viral etiology. On 10/18/2021, patient was seen and examined: On examination she appeared in good health and spirits, she does not appear to be in any distress. Vital signs as documented. Skin warm and dry and without overt rashes. Neck without JVD, thyroid appears normal, trachea is midline, neck is supple. Lungs clear, normal air movement was noted. Heart exam notable for regular rhythm, normal sounds and absence of murmurs, rubs or gallops. Abdomen unremarkable and without evidence of organomegaly, masses, or abdominal aortic enlargement, bowel sounds are present in all 4 quadrants, no abdominal tenderness was noted. Extremities nonedematous, no cyanosis was noted, no clubbing was noted. Neuro: Cranial nerves II through XII are grossly intact, no focal motor deficits were noted, sensation to light touch and pinprick is intact, motor exam 5/5 throughout. Psych: Patient is alert and oriented x3, she does not appear anxious or depressed, she does not appear agitated. Patient appeared to be stable for discharge home on 10/18/2021. Weight / BMI Weight Weight: 85.6 kg Body Mass Index (BMI) 28.7 ABG / Lab / Microbiology Data Result Diagrams: 10/17/21 05:12 10/18/21 05:25 Laboratory: Laboratory Results - last 24 hr 10/15/21 19:20: Stl Giardia Antigen Negative 10/18/21 05:25: Sodium 135 L, Potassium 4.2, Chloride 109 H, Carbon Dioxide 21.0 , Anion Gap 5, BUN 42 H, Creatinine 2.44 H, Estim Creat Clear Calc 22.95, Est GFR (MDRD) Af Amer 26 L, Est GFR (MDRD) Non-Af 21 L, BUN/Creatinine Ratio 17.2, Glucose 154 H, Calcium 8.8 10/18/21 05:25: Magnesium 1.9 10/18/21 07:28: POC Glucose 104 10/18/21 12:14: POC Glucose 246 H Microbiology: Microbiology 10/16/21 03:50 Urine, Clean Catch Urine Culture - Final Mixed Gram Positive Organisms 10/15/21 19:20 Stool Stool Lactoferrin - Final 10/15/21 19:20 Stool Enteric Bacteriology - Final 10/15/21 19:20 Stool C. difficile DNA Amplification - Final 10/15/21 19:20 Stool Stool Occult Blood (MAYTE) - Final 10/15/21 18:14 Nasal Secretion SARS-CoV-2 & FLU Antigen (Rapid) - Final D/C Instructions Discharge Diet: - (Resume your home diet) Weight Bearing Status: Full weight bearing Meaningful Use Info Meaningful Use Diagnoses (Choose all that apply): None applicable Discharge Plan Admission Admit Date/Time: 10/15/21 21:02 Primary Reason for Your Visit: Gastroenteritis, acute kidney injury Attending Provider: Roberto Brewster Primary Care Provider: Mala Mcgrath Consulting Providers: Castillo Ferris ; Georgia Cain Discharge Orders/Prescriptions Prescriptions: New (DME) Insulin Basal Pump (Pt's Own) [Pump, Basal] See Rx Instructions .ROUTE .MEDSUPPLY Qty: 1 0RF Rx Instructions: use as directed Continued (DME) Wheel Chair See Rx Instructions .Route .MEDSUPPLY Qty: 1 0RF Rx Instructions: As directed (DME) FreeStyle Allison 2 Sensor Kit See Rx Instructions .ROUTE .MEDSUPPLY Qty: 2 11RF Rx Instructions: As directed ondansetron 4 mg tablet,disintegrating 4 mg PO Q8H PRN (Reason: nausea and vomiting) Qty: 30 0RF duloxetine 30 mg capsule,delayed release(DR/EC) 60 mg PO BID (DME) pen needle, diabetic [BD Ultra-Fine Key Pen Needle] 32 gauge x 5/32 needle See Rx Instructions .ROUTE .MEDSUPPLY Qty: 200 8RF Rx Instructions: takes 5 injection/day buprenorphine 20 mcg/hour patch weekly 1 patch transdermal QWEEK Label Comments: APPLY 1 PATCH EVERY 7 DAYS Rx Instructions: pt dose currently has on is 10mcg on her right anterior shoulder 10/16/21 dicyclomine 20 mg tablet 20 mg PO 4X/DAY PRN (Reason: abdominal cramps) Qty: 0 0RF aspirin 81 mg Tablet,Delayed Release (Dr/Ec) 81 mg PO DAILY clopidogrel 75 mg tablet 75 mg PO DAILY Hold Instructions: Resume the day after completion of Eliquis Rx Instructions: TAKE 1 TABLET BY MOUTH EVERY DAY metoclopramide HCl [Reglan] 5 mg Tablet 5 mg PO DAILY PRN (Reason: reflux) mupirocin 2 % ointment 1 applic topical BID PRN (Reason: Rash) Rx Instructions: around wound vitamin E (dl, acetate) 180 mg (400 unit) capsule 360 mg PO DAILY isosorbide dinitrate 30 mg tablet 30 mg PO BID Qty: 60 11RF pantoprazole 40 mg tablet,delayed release (DR/EC) 40 mg PO DAILY Qty: 90 3RF diphenoxylate-atropine [Lomotil] 2.5-0.025 mg tablet 1 tab PO TID PRN (Reason: diarrhea) Qty: 90 0RF insulin lispro [Humalog KwikPen Insulin] 100 unit/mL insulin pen 60 unit SUBCUT TID MDD 250 Qty: 225 1RF Rx Instructions: plus SSI: 180 + 5; 220 +10; 240 +15; 270 +20 ([facility]) Dexcom G6 Cuff Presser Misc See Rx Instructions .ROUTE .MEDSUPPLY Qty: 1 0RF Rx Instructions: As directed ([facility]) Dexcom G6 Sensor Device See Rx Instructions .ROUTE .MEDSUPPLY Qty: 9 3RF Rx Instructions: 1 sensor every 10 days ([facility]) Dexcom G6 Transmitter Device See Rx Instructions .ROUTE .MEDSUPPLY Qty: 1 3RF Rx Instructions: 1 transmitter every 90 days atorvastatin 80 mg tablet 80 mg PO QHS Qty: 90 3RF Label Comments: cholesterol ([facility]) True Metrix Glucose Test Strip Strip See Rx Instructions .Route Qty: 100 6RF Rx Instructions: 3 times per day metoprolol tartrate 50 mg tablet 50 mg PO BID Qty: 180 3RF Rx Instructions: TAKES 50mg and 25mg TO MAKE 75 MG DOSE. metoprolol tartrate 25 mg tablet 25 mg PO BID Qty: 180 3RF Rx Instructions: Takes 25 mg + 50 mg tablet to + 75 mg BID ([facility]) Omnipod 5 G6 Pods (Gen 5) Cartridge See Rx Instructions .Route Qty: 45 1RF Rx Instructions: 1 pod q 48 hours betamethasone dipropionate 0.05 % cream 1 applic topical DAILY Qty: 45 2RF ursodiol 300 mg capsule 300 mg PO BID Qty: 180 1RF pregabalin 75 mg capsule 75 mg PO BID Qty: 60 1RF Discontinued hydrochlorothiazide 25 mg tablet 25 mg PO DAILY Qty: 90 3RF Lantus Solostar U-100 Insulin 100 unit/mL (3 mL) insulin pen 50 unit subcut BID Qty: 90 1RF Referrals / Follow Up: Mala Mcgrath MD [Primary Care Provider] - Within 2 Weeks (get your BMP (lab) rechecked) Disposition Disposition (needs filled in before D/C Order can be placed): Home, Self Care Charges/Coding Visit Charges Inpatient E&M: 20979 Disch Hosp
== END 2021-10-18 15:25 | disposition home or self-care (01) | DRG 683 ==
LOC: ED 20:45 → MS3 21:15
PROVIDERS: Internal Medicine; Admitting Provider Internal Medicine; Emergency Provider Emergency Medicine; PCP Internal Medicine; Visit Provider Internal Medicine
DX: N17.9 Acute kidney failure, unspecified (principal); K91.2 Postsurgical malabsorption, not elsewhere classified; J96.11 Chronic respiratory failure with hypoxia; E87.2 Acidosis; I13.0 Hypertensive heart and chronic kidney disease with heart failure and stage 1 through stage 4 chronic kidney disease, or unspecified chronic kidney disease; I50.32 Chronic diastolic (congestive) heart failure; K51.90 Ulcerative colitis, unspecified, without complications; D63.1 Anemia in chronic kidney disease; J44.9 Chronic obstructive pulmonary disease, unspecified; Z79.4 Long term (current) use of insulin; E11.43 Type 2 diabetes mellitus with diabetic autonomic (poly)neuropathy; E11.22 Type 2 diabetes mellitus with diabetic chronic kidney disease; E11.42 Type 2 diabetes mellitus with diabetic polyneuropathy; N18.32 Chronic kidney disease, stage 3b; Z93.2 Ileostomy status; E86.0 Dehydration; E78.00 Pure hypercholesterolemia, unspecified; L40.9 Psoriasis, unspecified; E78.49 Other hyperlipidemia; K31.84 Gastroparesis; F41.8 Other specified anxiety disorders; I25.10 Atherosclerotic heart disease of native coronary artery without angina pectoris; G47.33 Obstructive sleep apnea (adult) (pediatric); E83.42 Hypomagnesemia; K21.9 Gastro-esophageal reflux disease without esophagitis; A08.4 Viral intestinal infection, unspecified; Z87.891 Personal history of nicotine dependence; Z86.16 Personal history of COVID-19; Z79.02 Long term (current) use of antithrombotics/antiplatelets; G89.29 Other chronic pain; Z79.82 Long term (current) use of aspirin; Z95.5 Presence of coronary angioplasty implant and graft
CPT/HCPCS: 36415; 71045; 74176; 80048; 80053; 80076; 81001; 82274; 82962; 83630; 83735; 84100; 84484; 85025; 87040; 87086; 87088; 87177; 87209; 87329; 87428; 87493; 87506; 87635; 93005; 97110; 97162; 97530; 97802; 99251; 99285; J7030; J7050; J7120; A4216; G0463; J2405; U0003; U0005

== ENCOUNTER → 2021-10-27 | Outpatient (CLI) | payer MEDICARE, MEDICAID, SELFPAY ==
[2020-11-27 10:47] VITALS: BMI 30.9
[2021-10-27 12:54] LABS: Anion Gap 7 (5-15); BUN 36 mg/dL (7-18); Calcium,Total 9.7 mg/dL (8.5-10.1); Chloride 105 mmol/L (98-107); Creatinine, Serum 1.89 mg/dL (0.55-1.02); EST Glomerular Filtration Rate 29 mL/min (>60); Est Glom Filt Rate - Afr Amer 35 mL/min (>60); Glucose 262 mg/dL (74-106); Potassium 4.7 mmol/L (3.5-5.1); Sodium Level 137 mmol/L (136-145)
[2021-10-27 13:14] LABS: Protein, Urine (Random) 70.3 mg/dL (<11.9); Protein:Creat Ratio 200 mg/g CRE (0-200)
== END | disposition home or self-care (01) ==
LOC: BIMLAB 11:10
PROVIDERS: PCP Internal Medicine; Referring Provider Internal Medicine Nephrology; Visit Provider Internal Medicine Nephrology
DX: N18.32 Chronic kidney disease, stage 3b (principal)
CPT/HCPCS: 36415; 80048; 82570; 84156

== ENCOUNTER 2021-11-15 10:13 | Inpatient (IN) | payer MEDICARE, MEDICAID, SELFPAY ==
[2020-11-27 10:47] VITALS: BMI 30.9
[2021-11-15] VITALS (9 sets, daily range): BP systolic 109–137; BP diastolic 67–78; PULSE 75–102; RESP 16–18; TEMP 36.3–36.8; O2SAT 95–97; BMI 31.8; BMI 30.8
--- NOTE | 2021-11-15 10:42 | EDS_ITS ---
HPI HPI - GI History of Present Illness Chief Complaint: Abd Pain Detail of Chief Complaint: Abdominal pain and vomiting and diarrhea Informant: patient Narrative Narrative: Patient presents to the emergency department with abdominal pain as well as vomiting and diarrhea that is been ongoing for about a month. Patient states she was admitted a month ago for about 3 days and had acute kidney injury at that time. Patient states she never really got better and the diarrhea came back. Patient has a ileostomy from prior colectomy due to ulcerative colitis. Patient's had off-and-on fevers. She complains of diffuse abdominal discomfort. She denies dysuria or frequency. She describes decreased urine output. Patient denies recent antibiotic usage. She denies recent travel. Prior similar symptoms: Yes PFSH PFSH Medical History Anemia of chronic renal failure, stage 3 (moderate) Anxiety Arthritis Atherosclerosis of coronary artery bypass graft without angina pectoris Atherosclerotic heart disease of [place] coronary artery without angina pectoris Back pain BiPAP (biphasic positive airway pressure) dependence BMI 31.0-31.9,adult Cardiology follow-up encounter Chronic back pain Chronic diastolic (congestive) heart failure Chronic respiratory failure Chronic respiratory failure with hypoxia, on home O2 therapy CKD (chronic kidney disease) stage 3, GFR 30-59 ml/min COPD (chronic obstructive pulmonary disease) Coronary artery disease COVID-19 vaccine series completed Depression Depression with anxiety Diabetic gastroparesis Dietary restriction DM2 (diabetes mellitus, type 2) Encephalopathy Essential (primary) hypertension Fatty liver FCHL (familial combined hyperlipidemia) Former smoker Gastric reflux Gastroenteritis High cholesterol History of COVID-19 History of echocardiogram History of edema History of pain when walking History of renal disease History of stress test Hx of diabetic gastroparesis Hx of psoriasis Hyperlipidemia Hypertension Hypertensive chronic kidney disease with stage 1 through stage 4 chronic kidney disease, or unspecified chronic kidney disease Ileostomy present Increased ammonia level Insulin dependent diabetes mellitus Leg cramps Liver mass Loss of hearing Meniere's disease in remission Menieres disease MGUS (monoclonal gammopathy of unknown significance) Migraine headache Myoclonic jerking Non-alcoholic fatty liver disease Nonalcoholic steatohepatitis Obstructive sleep apnea Pancreatitis Preoperative evaluation to rule out surgical contraindication Psoriasis Right thyroid nodule Secondary pulmonary arterial hypertension Shortness of breath on exertion 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 2 diabetes mellitus Thyroid mass Type 2 diabetes mellitus with diabetic polyneuropathy Ulcerative colitis Walker as ambulation aid Wears glasses Home Medications Wheel Chair #1 ea 04/17/20 [Rx Last Taken Unknown] isosorbide dinitrate 30 mg tablet 30 mg PO BID heart #60 tabs 01/28/21 [Rx Last Taken 04/22/21 07:30] pen needle, diabetic 32 gauge x 5/32 (BD Ultra-Fine Key Pen Needle) #200 ea 03/21/21 [Rx Last Taken Unknown] aspirin 81 mg tablet,delayed release 81 mg PO DAILY Check with primary doctor 04/08/21 [History Last Taken 04/15/21] clopidogrel 75 mg tablet 75 mg PO DAILY Check with primary doctor 04/22/21 [History Last Taken 04/15/21] metoclopramide HCl 5 mg tablet (Reglan) 5 mg PO DAILY PRN reflux 04/22/21 [History Last Taken Unknown] buprenorphine 20 mcg/hour weekly transdermal patch 1 patch transdermal QWEEK Check with primary doctor 05/05/21 [History Last Taken 10/11/21] pantoprazole 40 mg tablet,delayed release 40 mg PO DAILY gerd #90 tabs 05/09/21 [Rx Last Taken Unknown] diphenoxylate-atropine 2.5 mg-0.025 mg tablet (Lomotil) 1 tab PO TID PRN diarrhea #90 tabs 05/19/21 [Rx Last Taken Unknown] insulin lispro 100 unit/mL subcutaneous pen (Humalog KwikPen (U-100) Insulin) 60 unit (0.6 mL) subcut TID Glucose control #225 mL 07/21/21 [Rx Last Taken Unknown] blood-glucose meter,continuous (Dexcom G6 Port Surveyor misc) #1 ea 08/07/21 [Rx Last Taken Unknown] blood-glucose sensor (Dexcom G6 Sensor device) #9 ea 08/07/21 [Rx Last Taken Unknown] blood-glucose transmitter (Dexcom G6 Transmitter device) #1 ea 08/07/21 [Rx Last Taken Unknown] atorvastatin 80 mg tablet 80 mg PO QHS CHOLESTEROL LOWERING #90 tabs 08/29/21 [Rx Last Taken Unknown] blood sugar diagnostic (True Metrix Glucose Test Strip) #100 ea 09/01/21 [Rx Last Taken Unknown] metoprolol tartrate 25 mg tablet 25 mg PO BID #180 tabs 09/01/21 [Rx Last Taken Unknown] metoprolol tartrate 50 mg tablet 50 mg PO BID blood pressure #180 tabs 09/01/21 [Rx Last Taken Unknown] betamethasone dipropionate 0.05 % topical cream 1 applic topical DAILY #45 grams 09/02/21 [Rx Last Taken Unknown] ursodiol 300 mg capsule 300 mg PO BID Check with primary doctor #180 caps 09/26/21 [Rx Last Taken Unknown] pregabalin 75 mg capsule 75 mg PO BID pain #60 caps 10/03/21 [Rx Last Taken Unknown] duloxetine 30 mg capsule,delayed release 60 mg PO BID Check with primary doctor 10/06/21 [History Last Taken Unknown] mupirocin 2 % topical ointment 1 applic topical BID PRN Rash 10/15/21 [History Last Taken Unknown] vitamin E (dl, acetate) 180 mg (400 unit) capsule 360 mg PO DAILY 10/15/21 [History Last Taken Unknown] Insulin Basal Pump (Pt's Own) [Pump, Basal] #1 ea 10/18/21 [Rx Last Taken Unknown] Humalog KwikPen Insulin 200 unit/mL (3 mL) subcutaneous (insulin lispro) 250 unit (1.25 mL) subcut .continuous #112.5 mL 11/03/21 [Rx Last Taken Unknown] hyoscyamine sulfate 0.125 mg tablet 0.125 mg PO Q6H PRN dyspepsia #60 tabs 11/04/21 [Rx Last Taken Unknown] ondansetron 4 mg disintegrating tablet 4 mg PO Q6H PRN nausea and vomiting #90 tabs 11/04/21 [Rx Last Taken Unknown] scopolamine base 1 mg over 3 days transdermal patch 1 patch transdermal Q3D #10 ea 11/04/21 [Rx Last Taken Unknown] insulin pump cart,automated,BT (Omnipod 5 G6 Pods (Gen 5) subcutaneous cartridge) #45 ea 11/05/21 [Rx Last Taken Unknown] Allergy/AdvReac Type Severity Reaction Status Date / Time aripiprazole [From Abilify] Allergy Intermediate hallucinati Verified 11/15/21 10:14 ons ciprofloxacin Allergy Intermediate Swelling Verified 11/15/21 10:14 cinnamon [Cinnamon] Allergy Anaphylaxis Verified 11/15/21 10:14 Influenza Virus Vaccines Allergy Shortness Verified 11/15/21 10:14 of breath liraglutide [From Victoza] Allergy Anaphylaxis Verified 11/15/21 10:14 metronidazole [From Flagyl] Allergy Hives Verified 11/15/21 10:14 Metronidazole HCl Allergy Hives Verified 11/15/21 10:14 [From Flagyl] Penicillins Allergy Hives Verified 11/15/21 10:14 Sulfa (Sulfonamide Allergy Hives Verified 11/15/21 10:14 Antibiotics) codeine AdvReac Stops Verified 11/15/21 10:14 Ileostomy metformin HCl AdvReac Nausea Verified 11/15/21 10:14 [From Glucophage] ranolazine AdvReac Nausea/Vom/ Verified 11/15/21 10:14 Diarrhea [id number] Reductase AdvReac Nausea/joints Verified 11/15/21 10:14 Inhibitor ache [[id number]-[id number]-[id number] Reductase Inhibitor] Family History Mother CVA (cerebral vascular accident) Diabetes Brother Heart disease of CAD at 65 Myocardial infarction Pancreatitis Father Cancer lymphomia Lymphoma Grandmother Myocardial infarction of [place] in her 70s Sister COPD (chronic obstructive pulmonary disease) Surgical History H/O colectomy H/O coronary artery bypass surgery (05/18/12) H/O sinus surgery H/O total hysterectomy history closed fissure History of History of cardiac catheterization History of cholecystectomy History of coronary artery stent placement (01/12/18) ileostomy Ileostomy status left thumb surgery Social History Smoking Status: Former smoker quit date: 03/08/12 how long ago did patient quit smoking: quit in 2012; 0.5-1ppd x 30yrs alcohol intake: never substance use type: does not use diet: diabetic caffeine: No eating out: 1-3 times/week what type of physical activity do you participate in: none seatbelt use: always do you feel safe at home: Yes ROS ROS ED Constitutional Constitutional ED: Reports systems reviewed and no addt'l complaints, except as documented; Denies body ache(s), change in weight or chills Eyes Eyes: Denies acute decrease in peripheral vision, change in vision, double vision or loss of vision ENT ENT ED: Reports none; Denies ear pain, lip swelling, loss taste/smell, neck pain, otalgia or sore throat Cardiovascular Cardiovascular: Reports none; Denies abdominal pain, chest pain with activity, leg edema, lightheadedness, palpitations, rapid heart rate or syncope Respiratory/Chest Respiratory/Chest: Reports none; Denies change in mental status, dry cough, dyspnea, hemoptysis, shortness of breath at rest or shortness of breath with exertion Gastrointestinal Gastrointestinal: Reports none, abdominal pain, diarrhea, nausea and vomiting; Denies change in stool character, hematemesis, hematochezia, melena or rectal bleeding Genitourinary Genitourinary ED: Reports none; Denies abdominal discomfort, anuria, dysuria, genital pain or polyuria Musculoskeletal Musculoskeletal: Reports none; Denies arthralgias, back pain, difficulty walking, extremity pain, muscle weakness or myalgias Integumentary Reports none; Denies abscess or rash Neurologic Neurologic: Reports none; Denies abnormal gait, confusion, focal weakness, frequent falls, headache(s), loss of vision, numbness, paresthesias, radicular pain, vertigo or weakness Psychiatric Psychiatric: Reports systems reviewed and no addt'l complaints, except as documented and none; Denies behavioral changes, confusion, difficulty concentrating, hallucinations, suicidal ideation, tactile hallucinations or vi sual hallucinations Endocrine Endocrinology: Denies none, cold intolerance, excessive sweating, fatigue or heat intolerance Hematologic/Lymphatic Hematologic/Lymphatic: Reports none; Denies anemia, easy bleeding or easy bruising Allergic/Immunologic Allergic/Immunologic ED: Denies as per HPI, none, lip swelling, mouth swelling, throat swelling, tongue swelling or hives EXAM Physical Exam Const Vital Signs: 11/15/21 10:14 11/15/21 10:23 Temperature 97.4 F L Temperature Source Temporal Pulse Rate 94 95 Respiratory Rate 18 18 Blood Pressure 137/71 H Blood Pressure Mean 93 Pulse Ox 96 95 Oxygen Delivery Method Room Air Room Air Positive well nourished and well developed General Appearance ED: well developed and NAD HEENT Reports TM's clear and moist mucous membranes normocephalic and atraumatic; Negative for trauma or tenderness Tympanic Membrane ED: Yes TM's clear Eyes PERRL and EOMs intact bilaterally General Eye ED: Negative for pale conjunctiva or scleral icterus Neck no lymphadenopathy, supple and no JVD General: Negative for tenderness Chest Wall inspection of chest normal and palpation of chest normal Chest: Negative for tenderness Resp normal respiratory effort and clear to auscultation bilaterally Effort and Inspection: Negative for respiratory distress or pain with movement Auscultation: Negative for rhonchi, wheezes or diminished lung sounds Cardio regular rate, regular rhythm, S1 normal heart sound, S2 normal heart sound and no murmurs Peripheral Pulses: pulses 2+ throughout GI normal to inspection, nondistended, normoactive bowel sounds, soft to palpation, non-distended and no masses GI Narrative: Patient has ileostomy to the left lower quadrant. Patient has watery stool that appears brown. Patient has diffuse tenderness palpation. There is no rebound, rigidity, or peritoneal signs. Back/Spine no CVA tenderness and no thoracic nor lumbar tenderness Extremity normal to inspection General Extremety ED: Negative for edema General Extremity: Negative for edema Neuro oriented x3, CN's II-XII intact bilaterally, no sensory deficits noted and gait normal Sensorium / Orientation: awake, alert, oriented to person, oriented to place and oriented to time Motor Exam: strength 5/5 throughout and strength abnormal Psych mental status grossly normal Skin no rashes or lesions noted and no wounds MDM MDM MDM Narrative Medical decision making narrative: IV line established on arrival. Patient was medicated with morphine and Zofran. Lab work-up obtained showed an elevated white count of 22,000. Chemistries showed a CO2 of 18 and potassium of 5.5 however there was some hemolysis. Patient does have a BUN of 42 and creatinine 2.02. Lipase slightly elevated 433. CT scan of the abdomen pelvis showed no significant abnormalities. Patient continued to have pain and nausea and was redosed with morphine and Zofran. Case will be discussed with hospitalist evaluate patient for admission. Urinalysis was ordered and is pending after straight cath sent. Lab Data Attestation: I reviewed the patient's lab results. Labs: Laboratory Results - last 24 hr 11/15/21 11/15/21 11/15/21 10:45 10:45 10:45 WBC 22.9 H RBC 5.54 H Hgb 15.2 H Hct 48.2 H MCV 87.0 MCH 27.4 MCHC 31.5 L RDW Std Deviation 52.8 H RDW Coeff of Jna 17.3 H Plt Count 218 MPV 12.8 H Immature Gran % (Auto) 0.700 Neut % (Auto) 83.2 H Lymph % (Auto) 8.2 L [place] % (Auto) 4.7 Eos % (Auto) 2.9 Baso % (Auto) 0.3 Absolute Neuts (auto) 19.1 H Absolute Lymphs (auto) 1.89 Nucleated RBC % 0 Sodium Cancelled Potassium Cancelled Chloride Cancelled Carbon Dioxide Cancelled Anion Gap Cancelled BUN Cancelled Creatinine Cancelled Estim Creat Clear Calc Cancelled Est GFR (MDRD) Af Amer Cancelled Est GFR (MDRD) Non-Af Cancelled BUN/Creatinine Ratio Cancelled Glucose Cancelled Lactic Acid 2.4 H* Calcium Cancelled Total Bilirubin Cancelled AST Cancelled ALT Cancelled Alkaline Phosphatase Cancelled Total Protein Cancelled Albumin Cancelled Globulin Cancelled Albumin/Globulin Ratio Cancelled Lipase Cancelled 11/15/21 11:40 WBC RBC Hgb Hct MCV MCH MCHC RDW Std Deviation RDW Coeff of Jan Plt Count MPV Immature Gran % (Auto) Neut % (Auto) Lymph % (Auto) [place] % (Auto) Eos % (Auto) Baso % (Auto) Absolute Neuts (auto) Absolute Lymphs (auto) Nucleated RBC % Sodium 138 Potassium 5.5 H Chloride 113 H Carbon Dioxide 18.0 L Anion Gap 7 BUN 42 H Creatinine 2.02 H Estim Creat Clear Calc 27.72 Est GFR (MDRD) Af Amer 32 L Est GFR (MDRD) Non-Af 26 L BUN/Creatinine Ratio 20.8 H Glucose 214 H Lactic Acid Calcium 9.0 Total Bilirubin 0.70 AST 20 ALT 22 Alkaline Phosphatase 138 H Total Protein 7.6 Albumin 3.2 Globulin 4.4 H Albumin/Globulin Ratio 0.7 L Lipase 433 H Radiography Diagnostic Testing: Clinical Impression(s) from Imaging Studies Abdomen/Pelvis CT 11/15/21 11:51 IMPRESSION: No suspicious solid organ abnormality, stable simple right renal cyst, no specific follow-up needed Left lower quadrant ostomy free of acute inflammation or abnormality. No demonstrated ileus or obstruction No free intraperitoneal fluid, air, or suspicious adenopathy Electronically Signed: Leoncio Lopez MD at 12:51 EDT , Discharge Plan Triage Chief Complaint: Abd Pain Other Complaint: Diarrhea ED Provider: Leonides Nicole Dx/Rx/DC Orders Clinical Impression: Abdominal pain, Diarrhea, Acute dehydration, Acidosis, lactic Prescriptions: No Action (DME) Wheel Chair See Rx Instructions .Route .MEDSUPPLY Qty: 1 0RF Rx Instructions: As directed duloxetine 30 mg capsule,delayed release(DR/EC) 60 mg PO BID (DME) pen needle, diabetic [BD Ultra-Fine Key Pen Needle] 32 gauge x 5/32 needle See Rx Instructions .ROUTE .MEDSUPPLY Qty: 200 8RF Rx Instructions: takes 5 injection/day buprenorphine 20 mcg/hour patch weekly 1 patch transdermal QWEEK Label Comments: APPLY 1 PATCH EVERY 7 DAYS Rx Instructions: pt dose currently has on is 10mcg on her right anterior shoulder 10/16/21 aspirin 81 mg Tablet,Delayed Release (Dr/Ec) 81 mg PO DAILY clopidogrel 75 mg tablet 75 mg PO DAILY Hold Instructions: Resume the day after completion of Eliquis Rx Instructions: TAKE 1 TABLET BY MOUTH EVERY DAY metoclopramide HCl [Reglan] 5 mg Tablet 5 mg PO DAILY PRN (Reason: reflux) mupirocin 2 % ointment 1 applic topical BID PRN (Reason: Rash) Rx Instructions: around wound vitamin E (dl, acetate) 180 mg (400 unit) capsule 360 mg PO DAILY (DME) Insulin Basal Pump (Pt's Own) [Pump, Basal] See Rx Instructions .Route .MEDSUPPLY Qty: 1 0RF Rx Instructions: use as directed isosorbide dinitrate 30 mg tablet 30 mg PO BID Qty: 60 11RF pantoprazole 40 mg tablet,delayed release (DR/EC) 40 mg PO DAILY Qty: 90 3RF diphenoxylate-atropine [Lomotil] 2.5-0.025 mg tablet 1 tab PO TID PRN (Reason: diarrhea) Qty: 90 0RF insulin lispro [Humalog KwikPen Insulin] 100 unit/mL insulin pen 60 unit SUBCUT TID MDD 250 Qty: 225 1RF Rx Instructions: plus SSI: 180 + 5; 220 +10; 240 +15; 270 +20 (DME) Dexcom G6 Port Surveyor Misc See Rx Instructions .ROUTE .MEDSUPPLY Qty: 1 0RF Rx Instructions: As directed (DME) Dexcom G6 Sensor Device See Rx Instructions .ROUTE .MEDSUPPLY Qty: 9 3RF Rx Instructions: 1 sensor every 10 days (DME) Dexcom G6 Transmitter Device See Rx Instructions .ROUTE .MEDSUPPLY Qty: 1 3RF Rx Instructions: 1 transmitter every 90 days atorvastatin 80 mg tablet 80 mg PO QHS Qty: 90 3RF Label Comments: cholesterol (DME) True Metrix Glucose Test Strip Strip See Rx Instructions .Route Qty: 100 6RF Rx Instructions: 3 times per day metoprolol tartrate 50 mg tablet 50 mg PO BID Qty: 180 3RF Rx Instructions: TAKES 50mg and 25mg TO MAKE 75 MG DOSE. metoprolol tartrate 25 mg tablet 25 mg PO BID Qty: 180 3RF Rx Instructions: Takes 25 mg + 50 mg tablet to + 75 mg BID betamethasone dipropionate 0.05 % cream 1 applic topical DAILY Qty: 45 2RF ursodiol 300 mg capsule 300 mg PO BID Qty: 180 1RF pregabalin 75 mg capsule 75 mg PO BID Qty: 60 1RF Humalog KwikPen Insulin 200 unit/mL (3 mL) insulin pen 250 unit subcut .continuous Qty: 112.5 1RF Rx Instructions: To be given via insulin pump. Patient is aware she will have to draw insulin from pen to place in pump. ondansetron 4 mg tablet,disintegrating 4 mg PO Q6H PRN (Reason: nausea and vomiting) Qty: 90 0RF hyoscyamine sulfate 0.125 mg tablet 0.125 mg PO Q6H PRN (Reason: dyspepsia) Qty: 60 2RF scopolamine base 1 mg over 3 days patch 3 day 1 patch transdermal Q3D Qty: 10 3RF (DME) Omnipod 5 G6 Pods (Gen 5) Cartridge See Rx Instructions .Route Qty: 45 1RF Rx Instructions: 1 pod q 48 hours Primary Care Provider: Mala Mcgrath Referrals: Mala Mcgrath MD [Primary Care Provider] - Disposition Disposition: Acute Care [facility]
[2021-11-15] MEDS: 0.9% Normal Saline 1,000 ML 125 ML IV ×3 (10:44→21:53)
[2021-11-15] MEDS: Morphine 4 MG/ML Syringe IV ×2 (10:44→13:01)
[2021-11-15] MEDS: Ondansetron 4 MG/2 ML Vial IV ×3 (10:44→21:43)
[2021-11-15 11:20] LABS: Absolute Lymphocyte Count 1.89 X10^3/uL (0.83-4.51); Absolute Neutrophil Count 19.1 X10^3/uL (2.0-7.7); Basophil# 0.08 X10^3/uL; Basophil% 0.3 % (0-1); Eosinophil# 0.67 X10^3/uL; Eosinophils% 2.9 % (0-5); Hematocrit 48.2 % (37-47); Hemoglobin 15.2 g/dL (12.0-15.0); Lymphocyte # 1.89 X10^3/ul (0.83-4.51); Lymphocyte % 8.2 % (19-41); Mean Corp Hgb Conc 31.5 g/dL (32-36); Mean Corpuscular Hgb 27.4 pg (27.0-32.0); Mean Platelet Vol. 12.8 fl (6.2-12.0); Monocyte# 1.07 X10^3/uL; Monocyte% 4.7 % (0-10); NRBC Flagged by Analyzer 0 % (0-5); Neutrophil # 19.06 X10^3/uL (2.7-7.7); Neutrophil % 83.2 % (47-70); Platelet Count 218 K/mm3 (150-450); RBC Distribution Width CV 17.3 % (11.6-14.6); RBC Distribution Width SD 52.8 fl (35.1-43.9); Red Blood Count 5.54 M/mm3 (4.2-5.4); White Blood Count 22.9 K/mm3 (4.4-11.0)
--- NOTE | 2021-11-15 11:33 | NURSING ---
lactic acid 2.4. aware
[2021-11-15 11:34] LABS: Lactic Acid 2.4 mmol/L (0.4-1.9)
--- NOTE | 2021-11-15 11:51 | CT_ITS ---
STUDY: CT ABDOMEN AND PELVIS WITHOUT CONTRAST REASON FOR EXAM: Female, 61 years old. Diffuse abdominal pain RADIATION DOSAGE (If Supplied By Facility): CTDIvol = ( 13.45 ) mGy, DLP = ( 739.35 ) mGycm TECHNIQUE: Transaxial images were obtained from the dome of the diaphragm to the symphysis pubis without oral contrast, and without intravenous contrast. Sagittal and coronal images were reconstructed. Individualized dose optimization techniques were used for this CT. COMPARISON: 10/15/2021 FINDINGS: Chronic interstitial changes in the lung bases without a superimposed process. There is been a remote CABG Normal liver. There is non-visualization of the gallbladder, which may be secondary to either contraction or a prior cholecystectomy. Normal spleen. Normal pancreas. Normal bilateral adrenal glands. No obstructive uropathy or suspicious solid renal lesion, stable 2 cm cyst in the lower pole the right kidney. Normal visualized stomach. There is a left lower quadrant ostomy free of complication or inflammation. Visualized bowel loops are unremarkable. No demonstrated obstruction or ileus. There is diffuse atherosclerotic calcification of the abdominal aorta, without a demonstrated aneurysm. Normal inferior vena cava. Normal retroperitoneum. Normal urinary bladder. Normal abdominal wall. There are diffuse degenerative changes of the visualized lumbar spine, and pelvis. Replaced left hip joint free of complication CT/Abdomen/Pelvis without Cont IMPRESSION: No suspicious solid organ abnormality, stable simple right renal cyst, no specific follow-up needed Left lower quadrant ostomy free of acute inflammation or abnormality. No demonstrated ileus or obstruction No free intraperitoneal fluid, air, or suspicious adenopathy Electronically Signed: Leoncio Lopez MD at 12:51 EDT ,
[2021-11-15 12:13] LABS: ALB/GLOB Ratio 0.7 RATIO (0.9-2.4); AST(SGOT) 20 U/L (15-37); Alanine Aminotransfer ALT/SGPT 22 U/L (13-56); Albumin, Serum 3.2 g/dL (3.2-5.0); Alkaline Phosphatase 138 U/L (45-117); Anion Gap 7 (5-15); BUN 42 mg/dL (7-18); BUN/Creat Ratio 20.8 RATIO (10-20); Chloride 113 mmol/L (98-107); Creatinine, Serum 2.02 mg/dL (0.55-1.02); EST Glomerular Filtration Rate 26 mL/min (>60); Est Glom Filt Rate - Afr Amer 32 mL/min (>60); Estimated Creatinine Clearance 27.72 ml/min; Globulin 4.4 g/dL (2.2-4.2); Glucose 214 mg/dL (74-106); Lipase 433 U/L (73-393); Potassium 5.5 mmol/L (3.5-5.1); Protein, Total 7.6 g/dL (6.4-8.2); Sodium Level 138 mmol/L (136-145)
--- NOTE | 2021-11-15 13:07 | NURSING ---
DR MARGARITO RENAE
--- NOTE | 2021-11-15 13:09 | HP.PCM.HOS_ITS ---
HPI - General General Date of Admission: 11/15/21 Date of Service: 11/15/21 Chief Complaint: Increased ileostomy output for 2 days along with abdominal cramps, decreased urine output for 2 days HPI Britney MÉNDEZ, is a 61 F with multiple comorbidities as listed below was brought to ED by EMS for increased ileostomy output, bilious in nature for 2 days along with abdominal cramps. Her abdominal cramps/pain is generalized, 3-5/10 intensity, nonspecific and intermittent. She also did not had good urine output for last 2 days. She states she trickles urine when she goes to empty ileostomy bag. Denies burning micturition. No fever or chills. She had similar presentation when she was admitted on 10/15/2021. She does not h ave hematemesis, melena or blood in the ileostomy bag. Denies chest pain shortness of breath, dizziness lightheadedness. Patient is started on IV fluid normal saline, enteric bacteriology panel and st ool studies ordered. She is further admitted [facility] Medical History Anemia of chronic renal failure, stage 3 (moderate) Anxiety Arthritis Atherosclerosis of coronary artery bypass graft without angina pectoris Atherosclerotic heart disease of kaw coronary artery without angina pectoris Back pain BiPAP (biphasic positive airway pressure) dependence BMI 31.0-31.9,adult Cardiology follow-up encounter Chronic back pain Chronic diastolic (congestive) heart failure Chronic respiratory failure Chronic respiratory failure with hypoxia, on home O2 therapy CKD (chronic kidney disease) stage 3, GFR 30-59 ml/min COPD (chronic obstructive pulmonary disease) Coronary artery disease COVID-19 vaccine series completed Depression Depression with anxiety Diabetic gastroparesis Dietary restriction DM2 (diabetes mellitus, type 2) Encephalopathy Essential (primary) hypertension Fatty liver FCHL (familial combined hyperlipidemia) Former smoker Gastric reflux Gastroenteritis High cholesterol History of COVID-19 History of echocardiogram History of edema History of pain when walking History of renal disease History of stress test Hx of diabetic gastroparesis Hx of psoriasis Hyperlipidemia Hypertension Hypertensive chronic kidney disease with stage 1 through stage 4 chronic kidney disease, or unspecified chronic kidney disease Ileostomy present Increased ammonia level Insulin dependent diabetes mellitus Leg cramps Liver mass Loss of hearing Meniere's disease in remission Menieres disease MGUS (monoclonal gammopathy of unknown significance) Migraine headache Myoclonic jerking Non-alcoholic fatty liver disease Nonalcoholic steatohepatitis Obstructive sleep apnea Pancreatitis Preoperative evaluation to rule out surgical contraindication Psoriasis Right thyroid nodule Secondary pulmonary arterial hypertension Shortness of breath on exertion 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 2 diabetes mellitus Thyroid mass Type 2 diabetes mellitus with diabetic polyneuropathy Ulcerative colitis Walker as ambulation aid Wears glasses Home Medications isosorbide dinitrate 30 mg tablet 30 mg PO BID heart #60 tabs 01/28/21 [Rx Last Taken 04/22/21 07:30] aspirin 81 mg tablet,delayed release 81 mg PO DAILY Check with primary doctor 04/08/21 [History Last Taken 04/15/21] clopidogrel 75 mg tablet 75 mg PO DAILY Check with primary doctor 04/22/21 [History Last Taken 04/15/21] metoclopramide HCl 5 mg tablet (Reglan) 5 mg PO DAILY PRN reflux 04/22/21 [History Last Taken Unknown] buprenorphine 20 mcg/hour weekly transdermal patch 1 patch transdermal QWEEK Check with primary doctor 05/05/21 [History Last Taken 10/11/21] pantoprazole 40 mg tablet,delayed release 40 mg PO DAILY gerd #90 tabs 05/09/21 [Rx Last Taken Unknown] diphenoxylate-atropine 2.5 mg-0.025 mg tablet (Lomotil) 1 tab PO TID PRN diarrhea #90 tabs 05/19/21 [Rx Last Taken Unknown] insulin lispro 100 unit/mL subcutaneous pen (Humalog KwikPen (U-100) Insulin) 60 unit (0.6 mL) subcut TID Glucose control #225 mL 07/21/21 [Rx Last Taken Unknown] atorvastatin 80 mg tablet 80 mg PO QHS CHOLESTEROL LOWERING #90 tabs 08/29/21 [Rx Last Taken Unknown] metoprolol tartrate 50 mg tablet 50 mg PO BID blood pressure #180 tabs 09/01/21 [Rx Last Taken Unknown] ursodiol 300 mg capsule 300 mg PO BID Check with primary doctor #180 caps 09/26/21 [Rx Last Taken Unknown] pregabalin 75 mg capsule 75 mg PO BID pain #60 caps 10/03/21 [Rx Last Taken Unknown] duloxetine 30 mg capsule,delayed release 60 mg PO BID Check with primary doctor 10/06/21 [History Last Taken Unknown] mupirocin 2 % topical ointment 1 applic topical BID PRN Rash 10/15/21 [History Last Taken Unknown] vitamin E (dl, acetate) 180 mg (400 unit) capsule 360 mg PO DAILY vitamin 10/15/21 [History Last Taken Unknown] hyoscyamine sulfate 0.125 mg tablet 0.125 mg PO Q6H PRN dyspepsia #60 tabs 11/04/21 [Rx Last Taken Unknown] ondansetron 4 mg disintegrating tablet 4 mg PO Q6H PRN nausea and vomiting #90 tabs 11/04/21 [Rx Last Taken Unknown] Insulin Basal Pump (Pt's Own) [Pump, Basal] 11/15/21 [History Last Taken Unkn own] Wheel Chair 11/15/21 [History Last Taken Unknown] betamethasone dipropionate 0.05 % topical cream 1 applic topical DAILY cream 11/15/21 [History Last Taken Unknown] blood sugar diagnostic (True Metrix Glucose Test Strip) 11/15/21 [History Last Taken Unknown] blood-glucose meter,continuous (Dexcom G6 Inventory Control Manager misc) 11/15/21 [History Last Taken Unknown] blood-glucose sensor (Dexcom G6 Sensor device) 11/15/21 [History Last Taken Unknown] blood-glucose transmitter (Dexcom G6 Transmitter device) 11/15/21 [History Last Taken Unknown] insulin lispro 200 unit/mL (3 mL) subcutaneous pen (Humalog KwikPen U-200 Insulin) 250 unit subcut .continuous insulin 11/15/21 [History Last Taken Unknown] insulin pump cart,automated,BT (Omnipod 5 G6 Pods (Gen 5) subcutaneous cartridge) 11/15/21 [History Last Taken Unknown] metoprolol tartrate 25 mg tablet 25 mg PO BID bp 11/15/21 [History Last Taken Unknown] pen needle, diabetic 32 gauge x 5/32 (BD Ultra-Fine Key Pen Needle) 11/15/21 [History Last Taken Unknown] Allergy/AdvReac Type Severity Reaction Status Date / Time aripiprazole [From Abilify] Allergy Intermediate hallucinati Verified 11/15/21 10:14 ons ciprofloxacin Allergy Intermediate Swelling Verified 11/15/21 10:14 cinnamon [Cinnamon] Allergy Anaphylaxis Verified 11/15/21 10:14 Influenza Virus Vaccines Allergy Shortness Verified 11/15/21 10:14 of breath liraglutide [From Victoza] Allergy Anaphylaxis Verified 11/15/21 10:14 metronidazole [From Flagyl] Allergy Hives Verified 11/15/21 10:14 Metronidazole HCl Allergy Hives Verified 11/15/21 10:14 [From Flagyl] Penicillins Allergy Hives Verified 11/15/21 10:14 Sulfa (Sulfonamide Allergy Hives Verified 11/15/21 10:14 Antibiotics) codeine AdvReac Stops Verified 11/15/21 10:14 Ileostomy metformin HCl AdvReac Nausea Verified 11/15/21 10:14 [From Glucophage] ranolazine AdvReac Nausea/Vom/ Verified 11/15/21 10:14 Diarrhea [id number] Reductase AdvReac Nausea/joints Verified 11/15/21 10:14 Inhibitor ache Family History Mother CVA (cerebral vascular accident) Diabetes Brother Heart disease of CAD at 65 Myocardial infarction Pancreatitis Father Cancer lymphomia Lymphoma Grandmother Myocardial infarction of MT in her 70s Sister COPD (chronic obstructive pulmonary disease) Surgical History H/O colectomy H/O coronary artery bypass surgery (05/18/12) H/O sinus surgery H/O total hysterectomy history closed fissure History of History of cardiac catheterization History of cholecystectomy History of coronary artery stent placement (01/12/18) ileostomy Ileostomy status left thumb surgery Social History Smoking Status: Former smoker quit date: 03/08/12 how long ago did patient quit smoking: quit in 2012; 0.5-1ppd x 30yrs alcohol intake: never substance use type: does not use diet: diabetic caffeine: No eating out: 1-3 times/week what type of physical activity do you participate in: none seatbelt use: always do you feel safe at home: Yes ROS ROS Narrative Constitutional: Reports fatigue and weakness. No fever. Dehydrated HEENT: Reports systems reviewed and no addt'l complaints, except as documented Respiratory/Chest: Denies chest pain, shortness of breath at rest or with exertion Gastrointestinal: As mentioned in HPI. No GI bleed. Genitourinary: Decreased urine output, oliguria. High creatinine, history of RALPH Musculoskeletal/back: Chronic back pain. Multiple joint pain and limited range of motion. Neurologic: Denies seizure-like activity skin: No ulcer. No rash Endocrinology: DM type II on insulin pump. Has cutaneous glucose sensor. Reports systems reviewed and no addt'l complaints, except as documented Hematologic/Lymphatic: Reports systems reviewed and no addt'l complaints, except as documented Rest 14 ROS are negative except as mentioned in HPI Vital Signs Vital Signs Vital Signs: 11/15/21 10:14 11/15/21 10:23 Temperature 97.4 F L Temperature Source Temporal Pulse Rate 94 95 Respiratory Rate 18 18 Blood Pressure 137/71 H Blood Pressure Mean 93 Pulse Ox 96 95 Oxygen Delivery Method Room Air Room Air Weight Weight: 203 lb 7.787 oz Body Mass Index (BMI) 31.8 Physical Exam Narrative Physical exam General: Alert, Oriented x3, Cooperative, obesity grade 1, BMI 30.9 kg/m?. HEENT: Atraumatic, PERRLA, EOMI, Normocephalic Oral: Oral mucosa dry. No Gingival or Mucosal Lesions/ Ulcerations Neck: Supple, No JVD, Negative Carotid Bruits Lungs: Air entry diminished in bilateral lung bases. No crepitation/rhonchi Cardiovascular: Regular rate, Regular Rhythm, Normal S1, Normal S2, No murmurs. CABG scar. Abdomen: Bowel Sounds Present, Soft, Non Tender, Non-Distended. LLQ Ileostomy looks healthy, pinkish. Increased bilious fluid in ileostomy bag. Right lower quadrant old ileostomy scar, closed with parastomal hernia. : No renal angle tenderness. No suprapubic tenderness. Extremities: No edema, Capillary Refill Less than 3 Seconds Skin: No rashes, No breakdown. Glucose sensor and insulin pump on abdominal skin Musculoskeletal: Range of motion limited on lower extremities at hip and knee joints. Chronic lumbar paraspinal muscle tenderness. Neurological: Cranial nerves II-XII grossly intact, DTR 2+/4 and Symmetrical Psych/Mental Status: Normal Affect, Appropriate. Results Lab / Micro Data Result Diagrams: 11/15/21 10:45 11/15/21 11:40 Labs: Laboratory Results - last 24 hr 11/15/21 10:45: WBC 22.9 H, RBC 5.54 H, Hgb 15.2 H, Hct 48.2 H, MCV 87.0, MCH 27.4, MCHC 31.5 L, RDW Std Deviation 52.8 H, RDW Coeff of Jan 17.3 H, Plt Count 218, MPV 12.8 H, Immature Gran % (Auto) 0.700, Neut % (Auto) 83.2 H, Lymph % (Auto) 8.2 L, [place] % (Auto) 4.7, Eos % (Auto) 2.9, Baso % (Auto) 0.3, Absolute Neuts (auto) 19.1 H, Absolute Lymphs (auto) 1.89, Nucleated RBC % 0 11/15/21 10:45: Sodium Cancelled, Potassium Cancelled, Chloride Cancelled, Carbon Dioxide Cancelled, Anion Gap Cancelled, BUN Cancelled, Creatinine Cancelled, Estim Creat Clear Calc Cancelled, Est GFR (MDRD) Af Amer Cancelled, Est GFR (MDRD) Non-Af Cancelled, BUN/Creatinine Ratio Cancelled, Glucose Cancelled, Calcium Cancelled, Total Bilirubin Cancelled, AST Cancelled, ALT Cancelled, Alkaline Phosphatase Cancelled, Total Protein Cancelled, Albumin Cancelled, Globulin Cancelled, Albumin/Globulin Ratio Cancelled, Lipase Cancelled 11/15/21 10:45: Lactic Acid 2.4 H* 11/15/21 11:40: Sodium 138, Potassium 5.5 H, Chloride 113 H, Carbon Dioxide 18.0 L, Anion Gap 7, BUN 42 H, Creatinine 2.02 H, Estim Creat Clear Calc 27.72, Est GFR (MDRD) Af Amer 32 L, Est GFR (MDRD) Non-Af 26 L, BUN/Creatinine Ratio 20.8 H , Glucose 214 H, Calcium 9.0, Total Bilirubin 0.70, AST 20, ALT 22, Alkaline Phosphatase 138 H, Total Protein 7.6, Albumin 3.2, Globulin 4.4 H, Albumin/Globulin Ratio 0.7 L, Lipase 433 H Radiology Impression Abdomen/Pelvis CT 11/15/21 11:51 IMPRESSION: No suspicious solid organ abnormality, stable simple right renal cyst, no specific follow-up needed Left lower quadrant ostomy free of acute inflammation or abnormality. No demonstrated ileus or obstruction No free intraperitoneal fluid, air, or suspicious adenopathy Electronically Signed: Leoncio Lopez MD at 12:51 EDT , Assessment & Plan Assessment/Plan (1) Gastroenteritis: PLAN: Plan This is a 61-year-old female came to ER with increased ileostomy output, mainly bilious fluid along with decreased urine output and elevated creatinine consistent with RALPH. 1.? Acute gastroenteritis, exact etiology unclear probably viral/bacterial: Patient is being admitted in MedSurg floor on cardiac rehabilitation program director. Blood pressure 124/69, heart rate 75/min. Continue IV fluid normal saline at 125 mill per hour. Stool for C. difficile and enteric pathogen panel negative. Stool for WBC ordered. CT abdomen pelvis individually reviewed. Left lower quadrant ostomy free of acute inflammation or abnormality. No ileus or obstruction. No free intraperitoneal fluid or air Or suspicious adenopathy No suspicious solid organ abnormality, stable simple right renal cyst, no specific follow-up needed 2.? Acute kidney injury, prerenal, oliguria/anuria on baseline CKD stage G3B: Patient had just trickle of urine for last 2 days therefore oliguria with RALPH. Her baseline creatinine runs around 1.6 in April 2021 but getting worse. She had acute kidney injury also in the last month admission 3.? Diabetes mellitus type 2 with gastroparesis with diabetic patient has gl ucose sensor and pump neuropathy:. Advised to continue insulin pump record glucose on glucose sensor 4.? Electrolyte abnormality: Potassium was 5.5. EMS EKG shows normal sinus rhythm. Patient has hyperkalemia, hypomagnesemia: Replace IV magnesium 2 g. Phosphorus level normal. Calcium normal. Repeat EKG ordered. 5. History of NAFLD and fatty liver: ALT AST normal. Alkaline phosphatase 138 .? ? Patient follows Dr. Andino.? Patient had liver biopsy in December 2020, macrovesicular stasis disease, F2/F3 by liver biopsy and elastography.? No cirrhosis.? Patient also has diabetes gastroparesis.? On ursodiol, vitamin D, vitamin D, statin and aspirin. 3.? Multiple comorbidities include ulcerative colitis with short-bowel syndrome, MGUS, history of past smoking more than 20 packs, chronic hypoxic respiratory failure, avascular necrosis of left hip status post left hip replacement, myoclo irma jerking, chronic back pain, psoriasis, coronary artery status post CABG, chronic diastolic heart failure, secondary pulmonary artery hypertension, obstructive sleep apnea, COPD and anemia of chronic kidney disease : Multiple comorbidities complicates the present care and? expect difficult and delay recovery.? Patient does not have chest pain or angina. Sometimes she gets chest pain/soreness mainly musculoskeletal in origin. She has chronic back pain. Home medication reconciliation done. VTE prophylaxis: Heparin 500 subcutaneous twice daily. Bilateral SCDs Total time of the visit including total time spent in counseling or coordination of care, (more than 50% of the total time, spent in obtaining medical information from nurses and other ancillary care providers,explaining to the pa tient about labs, imaging, diagnosis and management of active complex medical conditions), review of previous medical record, review of labs and imaging is? 50 minutes. Living will/advanced directive/end of life care: Patient does? have living will or advanced directive.? After discussion of benefits/risks procedures involved with? full code, DNR CC arrest and DNR CC, the patient opted for full code. Patient? does want artificial life support including intubation, tube feed, ventilator and/chest compression, central venous catheter, vasopressor and DC shock if needed ?? Total time spent in [id number] encounter in discussion of advanced directive 16 minutes. Clinical Impression(s) from Imaging Studies Abdomen/Pelvis CT 11/15/21 11:51 IMPRESSION: No suspicious solid organ abnormality, stable simple right renal cyst, no specific follow-up needed Left lower quadrant ostomy free of acute inflammation or abnormality. No demonstrated ileus or obstruction No free intraperitoneal fluid, air, or suspicious adenopathy Charges/Coding Visit Charges Inpatient E&M: 22870 Init Hosp L3 Procedures Hospitalists Procedures: 99420 Advncd Care Plan 30 Min
[2021-11-15 13:10] LABS: Mucous, Urine 0 SEEN /hpf (<or=2+); Red Blood Cells-Urine 0 SEEN /hpf (0-5)
--- NOTE | 2021-11-15 13:26 | NURSING ---
MED SURG MARGARITO ABD PAIN, DIARRHEA, DEHYDRATION
[2021-11-15 13:53] LABS: Color, Urine Yellow (Yellow); Glucose, Dipstick Normal (Normal); Ketone-Dipstick 5 mg/dl (Negative); Leukocyte Esterase-Dipstick Negative /ul (Negative); Nitrite-Dipstick Negative (Negative); Occult Blood-Urine 25 /ul (Negative); Protein-Dipstick 100 mg/dl (Negative); Specific Gravity, Urine 1.025 (1.002-1.030); Urine Bilirubin Dipstick Negative (Negative); Urine Clarity Clear (Clear); Urine Urobilinogen Normal (Normal)
--- NOTE | 2021-11-15 13:56 | ED.RN ---
emptied ileostomy for large amount of liquid green stool.
[2021-11-15 14:02] LABS: Squamous Epithelial Cells - UA 0-5 SEEN /hpf (5-10); White Blood Cells 0-5 SEEN /hpf (0-5)
[2021-11-15 14:03] LABS: Bacteria 1+ /hpf (None Seen); Hyaline Cast 5-10 SEEN /lpf (0-5)
[2021-11-15 14:15] LABS: Magnesium 1.3 mg/dL (1.6-2.6); Phosphorus 2.7 mg/dL (2.5-4.9)
[2021-11-15] MEDS: 0.9% Saline Lock 10 ML Syringe IV ×2 (14:44→21:43)
[2021-11-15] MEDS: Heparin Injection (Vial) 5,000 UNIT/ML VIAL 5000 UNIT SC ×2 (14:44→21:53)
[2021-11-15 14:54] LABS: Reflex Lactate? Y
--- NOTE | 2021-11-15 15:30 | EKG12_ITS ---
Test Reason : Blood Pressure : / mmHG Vent. Rate : 090 BPM Atrial Rate : 090 BPM P-R Int : 162 ms QRS Dur : 088 ms QT Int : 368 ms P-R-T Axes : 038 -34 124 degrees QTc Int : 450 ms Normal sinus rhythm Left axis deviation Left ventricular hypertrophy with repolarization abnormality Abnormal ECG When compared with ECG of 16-OCT-2021 20:17, T wave inversion less evident in Anterolateral leads Confirmed by CHLOÉ DOMINGUEZ, AL ([id number]), assignment editor ISABELLA BUTLER ([id number]) on 11/18/2021 9:21:05 AM Referred By: ROSSANA Confirmed By:AL LUEVANO MD
[2021-11-15 15:47] LABS: Potassium 4.8 mmol/L (3.5-5.1)
[2021-11-15 16:05] LABS: Lactic Acid 2.2 mmol/L (0.4-1.9)
[2021-11-15] MEDS: HYDROmorphone 0.5 MG/0.5 ML SYRINGE IV ×2 (17:36→21:42)
[2021-11-15] MEDS: Nitroglycerin (INPATIENT USE) 0.4 MG TAB.SUBL SL (21:40)
[2021-11-15] MEDS: Diphenoxylate/Atrop 1 Tablet PO (21:43)
[2021-11-15] MEDS: Atorvastatin Calcium 80 MG Tablet PO (21:46)
[2021-11-15] MEDS: Ursodiol 250 MG Tablet PO (21:46)
[2021-11-15] MEDS: DULoxetine Hcl 60 MG Capsule PO (21:46)
[2021-11-15] MEDS: Isosorbide DN 30 MG Tablet PO (21:46)
[2021-11-15] MEDS: Metoprolol Tartrate 50 MG Tablet PO (21:47)
[2021-11-15] MEDS: Metoprolol Tartrate 25 MG Tablet PO (21:47)
[2021-11-15] MEDS: Pregabalin 75 MG Capsule PO (21:52)
--- NOTE | 2021-11-15 22:03 | NURSING ---
internal insulin pump that monitors blood sugar. Patient states her monitor reads 126 at this time.
[2021-11-16] VITALS (12 sets, daily range): BP systolic 122–130; BP diastolic 58–67; PULSE 80–92; RESP 16–18; TEMP 36.8–36.9; O2SAT 94–97
[2021-11-16] MEDS: oxyCODONE 5 MG Tablet PO ×3 (01:15→23:13)
[2021-11-16] MEDS: 0.9% Normal Saline 1,000 ML 125 ML IV (06:23)
[2021-11-16] MEDS: 0.9% Saline Lock 10 ML Syringe IV (06:23)
[2021-11-16 07:05] LABS: Absolute Lymphocyte Count 3.09 X10^3/uL (0.83-4.51); Absolute Neutrophil Count 9.9 X10^3/uL (2.0-7.7); Anion Gap 7 (5-15); BUN 43 mg/dL (7-18); BUN/Creat Ratio 19.5 RATIO (10-20); Basophil# 0.03 X10^3/uL; Basophil% 0.2 % (0-1); Calcium,Total 8.4 mg/dL (8.5-10.1); Chloride 113 mmol/L (98-107); EST Glomerular Filtration Rate 24 mL/min (>60); Eosinophil# 0.83 X10^3/uL; Eosinophils% 5.7 % (0-5); Est Glom Filt Rate - Afr Amer 29 mL/min (>60); Estimated Creatinine Clearance 25.45 ml/min; Glucose 116 mg/dL (74-106); Hematocrit 41.1 % (37-47); Hemoglobin 12.8 g/dL (12.0-15.0); Lymphocyte # 3.09 X10^3/ul (0.83-4.51); Mean Corp Hgb Conc 31.1 g/dL (32-36); Mean Corpuscular Hgb 27.5 pg (27.0-32.0); Mean Corpuscular Volume 88.4 fL (81-99); Mean Platelet Vol. 12.1 fl (6.2-12.0); Monocyte# 0.78 X10^3/uL; Monocyte% 5.3 % (0-10); NRBC Flagged by Analyzer 0 % (0-5); Neutrophil # 9.88 X10^3/uL (2.7-7.7); Neutrophil % 67.3 % (47-70); Platelet Count 162 K/mm3 (150-450); Potassium 4.6 mmol/L (3.5-5.1); RBC Distribution Width CV 16.8 % (11.6-14.6); RBC Distribution Width SD 53.4 fl (35.1-43.9); Red Blood Count 4.65 M/mm3 (4.2-5.4); Sodium Level 138 mmol/L (136-145); White Blood Count 14.7 K/mm3 (4.4-11.0)
--- NOTE | 2021-11-16 08:09 | PN.HOSP_ITS ---
Subjective Subjective Follow-up for increased ileostomy output, diarrhea exact etiology unclear Patient still has increased output. Leukocytosis improving. No fever. Objective Data Objective Data Vital Signs: Vital Signs Temp Pulse Resp BP Pulse Ox O2 Del Method 98.4 F 80 18 124/67 H 97 Room Air 11/16/21 03:03 11/16/21 07:12 11/16/21 03:03 11/16/21 03:03 11/16/21 03:03 11/16/21 03:03 Oxygen Delivery Method Room Air Weight: 196 lb 13.965 oz Body Mass Index (BMI) 30.8 Intake & Output: Intake and Output for Last 24 Hours 11/14/21 11/15/21 11/16/21 23:59 23:59 23:59 Intake Total 2193.75 / 2193.75 1000 / 1000 Output Total 450 / 450 600 / 600 Balance 1743.75 / 1743.75 400 / 400 Lab / Micro Data Result Diagrams: 11/16/21 06:25 11/16/21 06:25 Labs: Laboratory Results - last 24 hr 11/15/21 10:45: WBC 22.9 H, RBC 5.54 H, Hgb 15.2 H, Hct 48.2 H, MCV 87.0, MCH 27.4, MCHC 31.5 L, RDW Std Deviation 52.8 H, RDW Coeff of Jan 17.3 H, Plt Count 218, MPV 12.8 H, Immature Gran % (Auto) 0.700, Neut % (Auto) 83.2 H, Lymph % (Auto) 8.2 L, [place] % (Auto) 4.7, Eos % (Auto) 2.9, Baso % (Auto) 0.3, Absolute Neuts (auto) 19.1 H, Absolute Lymphs (auto) 1.89, Nucleated RBC % 0 11/15/21 10:45: Sodium Cancelled, Potassium Cancelled, Chloride Cancelled, Carbon Dioxide Cancelled, Anion Gap Cancelled, BUN Cancelled, Creatinine Cancelled, Estim Creat Clear Calc Cancelled, Est GFR (MDRD) Af Amer Cancelled, Est GFR (MDRD) Non-Af Cancelled, BUN/Creatinine Ratio Cancelled, Glucose Cancelled, Calcium Cancelled, Total Bilirubin Cancelled, AST Cancelled, ALT Cancelled, Alkaline Phosphatase Cancelled, Total Protein Cancelled, Albumin Cancelled, Globulin Cancelled, Albumin/Globulin Ratio Cancelled, Lipase Cancelled 11/15/21 10:45: Lactic Acid 2.4 H* 11/15/21 11:40: Sodium 138, Potassium 5.5 H, Chloride 113 H, Carbon Dioxide 18.0 L, Anion Gap 7, BUN 42 H, Creatinine 2.02 H, Estim Creat Clear Calc 27.72, Est GFR (MDRD) Af Amer 32 L, Est GFR (MDRD) Non-Af 26 L, BUN/Creatinine Ratio 20.8 H , Glucose 214 H, Calcium 9.0, Total Bilirubin 0.70, AST 20, ALT 22, Alkaline Phosphatase 138 H, Total Protein 7.6, Albumin 3.2, Globulin 4.4 H, Albumin/Globulin Ratio 0.7 L, Lipase 433 H 11/15/21 11:40: Phosphorus 2.7, Magnesium 1.3 L 11/15/21 13:00: Urine Color Yellow, Urine Clarity Clear, Urine pH 6.0, Ur Specific [place] 1.025, Urine Protein 100 H, Urine Glucose (UA) Normal, Urine Ketones 5 H, Urine Occult Blood 25 H, Urine Nitrite Negative, Urine Bilirubin Negative, Urine Urobilinogen Normal, Ur Leukocyte Esterase Negative, Urine RBC 0 SEEN, Urine WBC 0-5 SEEN, Ur Squamous Epith Cells 0-5 SEEN, Urine Bacteria 1+, Hyaline Casts 5-10 SEEN, Urine Mucus 0 SEEN 11/15/21 15:16: Potassium 4.8 11/15/21 15:16: Lactic Acid 2.2 H* 11/16/21 06:25: WBC 14.7 H, RBC 4.65, Hgb 12.8, Hct 41.1, MCV 88.4, MCH 27.5, MCHC 31.1 L, RDW Std Deviation 53.4 H, RDW Coeff of Jan 16.8 H, Plt Count 162, MPV 12.1 H, Immature Gran % (Auto) 0.500, Neut % (Auto) 67.3, Lymph % (Auto) 21.0, [place] % (Auto) 5.3, Eos % (Auto) 5.7 H, Baso % (Auto) 0.2, Absolute Neuts (auto) 9.9 H, Absolute Lymphs (auto) 3.09, Nucleated RBC % 0 11/16/21 06:25: Sodium 138, Potassium 4.6, Chloride 113 H, Carbon Dioxide 18.0 L , Anion Gap 7, BUN 43 H, Creatinine 2.20 H, Estim Creat Clear Calc 25.45, Est GFR (MDRD) Af Amer 29 L, Est GFR (MDRD) Non-Af 24 L, BUN/Creatinine Ratio 19.5, Glucose 116 H, Calcium 8.4 L Micro: Microbiology 11/15/21 10:22 Stool Enteric Bacteriology - Final 11/15/21 10:22 Stool C. difficile DNA Amplification - Final Radiography Diagnostic Testing: Radiology Impression Abdomen/Pelvis CT 11/15/21 11:51 IMPRESSION: No suspicious solid organ abnormality, stable simple right renal cyst, no specific follow-up needed Left lower quadrant ostomy free of acute inflammation or abnormality. No demonstrated ileus or obstruction No free intraperitoneal fluid, air, or suspicious adenopathy Electronically Signed: Leoncio Lopez MD at 12:51 EDT Reading Location ID and State: [address] [place] [address] , Service support , Physical Exam Narrative Physical exam General: Alert, Oriented x3, Cooperative, obesity grade 1, BMI 30.9 kg/m?. HEENT: Atraumatic, PERRLA, EOMI, Normocephalic Oral: Oral mucosa dry. No Gingival or Mucosal Lesions/ Ulcerations Neck: Supple, No JVD, Negative Carotid Bruits Lungs: Air entry diminished in bilateral lung bases. No crepitation/rhonchi Cardiovascular: Regular rate, Regular Rhythm, Normal S1, Normal S2, No murmurs. CABG scar. Abdomen: Bowel Sounds Present, Soft, Non Tender, Non-Distended. LLQ Ileostomy looks healthy, pinkish. Increased bilious fluid in ileostomy bag. Right lower quadrant old ileostomy scar, closed with parastomal hernia. : No renal angle tenderness. No suprapubic tenderness. Extremities: No edema, Capillary Refill Less than 3 Seconds Skin: No rashes, No breakdown. Glucose sensor and insulin pump on abdominal skin Musculoskeletal: Range of motion limited on lower extremities at hip and knee joints. Chronic lumbar paraspinal muscle tenderness. Neurological: Cranial nerves II-XII grossly intact, DTR 2+/4 and Symmetrical Psych/Mental Status: Normal Affect, Appropriate. Assessment & Plan Assessment/Plan (1) Gastroenteritis: PLAN: Plan This is a 61-year-old female came to ER with increased ileostomy output, mainly bilious fluid along with decreased urine output and elevated creatinine consistent with RALPH. 1.? Acute gastroenteritis, exact etiology unclear probably viral/bacterial: Patient is being admitted in MedSurg floor on teletypesetter monitor. Blood pressure 124/69, heart rate 75/min. Continue IV fluid normal saline at 125 mill per hour. Stool for C. difficile and enteric pathogen panel negative. Stool for WBC ordered. CT abdomen pelvis individually reviewed. Left lower quadrant ostomy free of acute inflammation or abnormality. No ileus or obstruction. No free intraperitoneal fluid or air Or suspicious adenopathy No suspicious solid organ abnormality, stable simple right renal cyst 11/16: Leukocytosis improving. No fever. Exact etiology unclear possible mucosal of left small bowel is not functional or healthy therefore no effective absorption. Follow-up with Dr. Artis. Patient is a well-known good candidate for bowel transplant. 2.? Acute kidney injury, prerenal, oliguria/anuria on baseline CKD stage G3B: Patient had just trickle of urine for last 2 days therefore oliguria with RALPH. Her baseline creatinine runs around 1.6 in April 2021 but getting worse. She had acute kidney injury also in the last month admission 11/14: IV fluid changed to Ringer lactate. Creatinine from 2.0-2 2.2. BUN similar. Change IV fluid Ringer lactate 250 mill per hour 3.? 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 Advised to continue insulin pump record glucose on glucose sensor 11/16: Glucose is controlled 116. 4.? Electrolyte abnormality: Potassium was 5.5. EMS EKG shows normal sinus rhythm. Patient has hyperkalemia, hypomagnesemia: Replace IV magnesium 2 g. Phosphorus level normal. Calcium normal. Repeat EKG ordered. Hypomagnesemia: Magnesium 1.4, phosphorus 3.3. Potassium 4.6. Bicarb 18, anion gap 7. Magnesium is being replaced. 5. History of NAFLD and fatty liver: ALT AST normal. Alkaline phosphatase 138.? ? Patient follows Dr. Andino.? Patient had liver biopsy in December 2020, macrovesicular stasis disease, F2/F3 by liver biopsy and elastography.? No cirrhosis.? Patient also has diabetes gastroparesis.? On ursodiol, vitamin D, vitamin D, statin and aspirin. 3.? Multiple comorbidities include ulcerative colitis with short-bowel syndrome, MGUS, history of past smoking more than 20 packs, chronic hypoxic respiratory failure, avascular necrosis of left hip status post left hip replacement, myoclonic jerking, chronic back pain, psoriasis, coronary artery status post CABG, chronic diastolic heart failure, secondary pulmonary artery hypertension, obstructive sleep apnea, COPD and anemia of chronic kidney disease : Multiple comorbidities complicates the present care and? expect difficult and delay recovery.? Patient does not have chest pain or angina. Sometimes she gets chest pain/soreness mainly musculoskeletal in origin. She has chronic back pain. Home medication reconciliation done. VTE prophylaxis: Heparin 500 subcutaneous twice daily. Bilateral SCDs Total time of the visit including total time spent in counseling or coordination of care, (more than 50% of the total time, spent in obtaining medical information from nurses and other ancillary care providers,explaining to the patient about labs, imaging, diagnosis and management of active complex medical conditions), review of previous medical record, review of labs and imaging is? 50 minutes. Living will/advanced directive/end of life care: Patient does? have living will or advanced directive.? After discussion of benefits/risks procedures involved with? full code, DNR CC arrest and DNR CC, the patient opted for full code. Patient? does want artificial life support including intubation, tube feed, ventilator and/chest compression, central venous catheter, vasopressor and DC shock if needed ?? Total time spent in [id number] encounter in discussion of advanced directive 16 minutes. Microbiology Past 72 Hours 11/15/21 10:22 Stool Enteric Bacteriology - Final 11/15/21 10:22 Stool C. difficile DNA Amplification - Final Laboratory Results 11/15/21 10:45: WBC 22.9 H, RBC 5.54 H, Hgb 15.2 H, Hct 48.2 H, MCV 87.0, MCH 2 7.4, MCHC 31.5 L, RDW Std Deviation 52.8 H, RDW Coeff of Jan 17.3 H, Plt Count 218, MPV 12.8 H, Immature Gran % (Auto) 0.700, Neut % (Auto) 83.2 H, Lymph % (Auto) 8.2 L, [place] % (Auto) 4.7, Eos % (Auto) 2.9, Baso % (Auto) 0.3, Absolute Neuts (auto) 19.1 H, Absolute Lymphs (auto) 1.89, Nucleated RBC % 0 11/15/21 10:45: Lactic Acid 2.4 H* 11/15/21 11:40: Sodium 138, Potassium 5.5 H, Chloride 113 H, Carbon Dioxide 18.0 L, Anion Gap 7, BUN 42 H, Creatinine 2.02 H, Estim Creat Clear Calc 27.72, Est GFR (MDRD) Af Amer 32 L, Est GFR (MDRD) Non-Af 26 L, BUN/Creatinine Ratio 20.8 H , Glucose 214 H, Calcium 9.0, Total Bilirubin 0.70, AST 20, ALT 22, Alkaline Phosphatase 138 H, Total Protein 7.6, Albumin 3.2, Globulin 4.4 H, Albumin/Globulin Ratio 0.7 L, Lipase 433 H 11/15/21 11:40: Phosphorus 2.7, Magnesium 1.3 L 11/15/21 13:00: Urine Color Yellow, Urine Clarity Clear, Urine pH 6.0, Ur Specific [place] 1.025, Urine Protein 100 H, Urine Glucose (UA) Normal, Urine Ketones 5 H, Urine Occult Blood 25 H, Urine Nitrite Negative, Urine Bilirubin Negative, Urine Urobilinogen Normal, Ur Leukocyte Esterase Negative, Urine RBC 0 SEEN, Urine WBC 0-5 SEEN, Ur Squamous Epith Cells 0-5 SEEN, Urine Bacteria 1+, Hyaline Casts 5-10 SEEN, Urine Mucus 0 SEEN 11/15/21 15:16: Potassium 4.8 11/15/21 15:16: Lactic Acid 2.2 H* 11/16/21 06:25: WBC 14.7 H, RBC 4.65, Hgb 12.8, Hct 41.1, MCV 88.4, MCH 27.5, MCHC 31.1 L, RDW Std Deviation 53.4 H, RDW Coeff of Jan 16.8 H, Plt Count 162, MPV 12.1 H, Immature Gran % (Auto) 0.500, Neut % (Auto) 67.3, Lymph % (Auto) 21.0, [place] % (Auto) 5.3, Eos % (Auto) 5.7 H, Baso % (Auto) 0.2, Absolute Neuts (auto) 9.9 H, Absolute Lymphs (auto) 3.09, Nucleated RBC % 0 11/16/21 06:25: Sodium 138, Potassium 4.6, Chloride 113 H, Carbon Dioxide 18.0 L , Anion Gap 7, BUN 43 H, Creatinine 2.20 H, Estim Creat Clear Calc 25.45, Est GFR (MDRD) Af Amer 29 L, Est GFR (MDRD) Non-Af 24 L, BUN/Creatinine Ratio 19.5, Glucose 116 H, Calcium 8.4 L 11/16/21 06:25: Magnesium 1.4 L 11/16/21 06:25: Phosphorus 3.3 Clinical Impression(s) from Imaging Studies Abdomen/Pelvis CT 11/15/21 11:51 IMPRESSION: No suspicious solid organ abnormality, stable simple right renal cyst, no specific follow-up needed Left lower quadrant ostomy free of acute inflammation or abnormality. No demonstrated ileus or obstruction No free intraperitoneal fluid, air, or suspicious adenopathy Charges/Coding Visit Charges Inpatient E&M: 57686 Subs Hosp L2
[2021-11-16 08:22] LABS: Magnesium 1.4 mg/dL (1.6-2.6)
[2021-11-16] MEDS: Aspirin E.C. 81 MG Tablet PO (08:40)
[2021-11-16] MEDS: DULoxetine Hcl 60 MG Capsule PO ×2 (08:40→21:06)
[2021-11-16] MEDS: Ursodiol 250 MG Tablet PO ×2 (08:40→21:14)
[2021-11-16] MEDS: Pantoprazole Sodium 40 MG Tablet PO (08:40)
[2021-11-16] MEDS: Heparin Injection (Vial) 5,000 UNIT/ML VIAL 5000 UNIT SC ×2 (08:40→21:09)
[2021-11-16] MEDS: Isosorbide DN 30 MG Tablet PO ×2 (08:40→21:06)
[2021-11-16] MEDS: Metoprolol Tartrate 25 MG Tablet PO ×2 (08:41→21:09)
[2021-11-16] MEDS: Metoprolol Tartrate 50 MG Tablet PO ×2 (08:41→21:09)
[2021-11-16] MEDS: Clopidogrel Bisulfate 75 MG Tablet PO (08:42)
[2021-11-16] MEDS: Pregabalin 75 MG Capsule PO ×2 (08:44→21:06)
--- NOTE | 2021-11-16 08:52 | NURSING ---
Patient reports that her blood glucose level per her own equipment is 136 at this time. Will continue to monitor.
[2021-11-16 09:17] LABS: Phosphorus 3.3 mg/dL (2.5-4.9)
[2021-11-16] MEDS: Lactated Ringers 1,000 ML 150 ML IV ×2 (14:06→21:02)
--- NOTE | 2021-11-16 17:00 | NURSING ---
Patient's blood glucose per dexcom is 144.
[2021-11-16] MEDS: Glucerna Shake 120 ML LIQUID PO ×2 (18:45→21:14)
[2021-11-16] MEDS: Atorvastatin Calcium 80 MG Tablet PO (21:06)
[2021-11-16] MEDS: Acetaminophen 325 MG Tablet 650 MG PO (23:14)
[2021-11-17] VITALS (14 sets, daily range): BP systolic 106–149; BP diastolic 52–77; PULSE 66–81; RESP 16–18; TEMP 36.5–36.8; O2SAT 94–97
[2021-11-17] MEDS: Lactated Ringers 1,000 ML 150 ML IV ×2 (04:03→10:51)
[2021-11-17 05:50] LABS: Absolute Lymphocyte Count 2.47 X10^3/uL (0.83-4.51); Absolute Neutrophil Count 5.5 X10^3/uL (2.0-7.7); Basophil# 0.02 X10^3/uL; Basophil% 0.2 % (0-1); Eosinophil# 0.64 X10^3/uL; Eosinophils% 6.9 % (0-5); Hematocrit 34.5 % (37-47); Hemoglobin 11.1 g/dL (12.0-15.0); Lymphocyte # 2.47 X10^3/ul (0.83-4.51); Lymphocyte % 26.8 % (19-41); Mean Corp Hgb Conc 32.2 g/dL (32-36); Mean Corpuscular Volume 86.9 fL (81-99); Mean Platelet Vol. 12.3 fl (6.2-12.0); Monocyte# 0.55 X10^3/uL; NRBC Flagged by Analyzer 0 % (0-5); Neutrophil # 5.51 X10^3/uL (2.7-7.7); Neutrophil % 59.7 % (47-70); Platelet Count 139 K/mm3 (150-450); RBC Distribution Width CV 16.4 % (11.6-14.6); RBC Distribution Width SD 52.3 fl (35.1-43.9); Red Blood Count 3.97 M/mm3 (4.2-5.4); White Blood Count 9.2 K/mm3 (4.4-11.0)
[2021-11-17 06:05] LABS: Anion Gap 7 (5-15); BUN 34 mg/dL (7-18); BUN/Creat Ratio 17.9 RATIO (10-20); Calcium,Total 8.6 mg/dL (8.5-10.1); Chloride 111 mmol/L (98-107); EST Glomerular Filtration Rate 28 mL/min (>60); Est Glom Filt Rate - Afr Amer 34 mL/min (>60); Estimated Creatinine Clearance 29.47 ml/min; Glucose 199 mg/dL (74-106); Potassium 4.3 mmol/L (3.5-5.1); Sodium Level 138 mmol/L (136-145)
[2021-11-17] MEDS: Aspirin E.C. 81 MG Tablet PO (08:48)
[2021-11-17] MEDS: Heparin Injection (Vial) 5,000 UNIT/ML VIAL 5000 UNIT SC ×2 (08:49→21:25)
[2021-11-17] MEDS: Isosorbide DN 30 MG Tablet PO ×2 (08:49→21:25)
[2021-11-17] MEDS: DULoxetine Hcl 60 MG Capsule PO ×2 (08:49→21:25)
[2021-11-17] MEDS: Glucerna Shake 120 ML LIQUID PO ×4 (08:49→21:31)
[2021-11-17] MEDS: Pantoprazole Sodium 40 MG Tablet PO (08:50)
[2021-11-17] MEDS: Clopidogrel Bisulfate 75 MG Tablet PO (08:50)
[2021-11-17] MEDS: Metoprolol Tartrate 25 MG Tablet PO ×2 (08:50→21:30)
[2021-11-17] MEDS: Triamcinolone 0.5% Cream 1 APPLIC TOPICAL (08:50)
[2021-11-17] MEDS: Metoprolol Tartrate 50 MG Tablet PO ×2 (08:50→21:25)
[2021-11-17] MEDS: Ursodiol 250 MG Tablet PO ×2 (08:53→21:26)
[2021-11-17] MEDS: Pregabalin 75 MG Capsule PO ×2 (08:58→21:26)
--- NOTE | 2021-11-17 10:50 | CASEMGMT ---
SVETLANA RAINEY readmission note: Prior admission: Admitted 10/15 w/gastroenteritis. Pt discharged home 10/18. Pt declined need for HHC. See RN REDD, Naomi Jaimes, assessment 10/16. Current admission: Pt admitted 11/15 w/N/V/D and RALPH from prerenal. SVETLANA RAINEY to room to talk w/pt. Introduced self and role. Pt states she has been taking her medications as prescribed. She went to f/u appt w/Dr Mcgrath on 10/27 and the next scheduled appt w/her is on Dec 29. Pt states she has all diabetic supplies, insulin, and medications needed. Pt states she has fallen @ home 3 x's this past month and is interested in HHC for therapy. Pt states she is also having difficulty managing her home, such as cleaning/laundry and would like an aide to assist w/that. She was made aware an aide through HHC would only come in to assist w/bathing and dressing not home mgmt tasks. She states she does not need an aide for bathing/dsg as she has been able to do that on her own. She states her hosiery looper, Serenity Goldstein, from the counseling center was working on trying to get her aide to assist her in the home, but she has not heard back from her since before her last admission @ [facility]. SHWETHA, Kath, notified of same. Pt denies having any further discharge needs at this time. Pt made aware to ask for CM any further needs arise. MS3 SVETLANA RAINEY, Amie Clements, notified pt requesting HHC for therapy. Mitchel IVAN RN, CM
--- NOTE | 2021-11-17 11:25 | NURSING ---
pt states that she left a voicemail message for Dr. Osman' office regarding her insulin pump. Inquired what pt would do at home if the same situation arose. pt states that if she were at home, she would call the office to figure out what she would need for SSI. pt states that she called her pump manufactorer whom she gets her pump/insulin from and they state they will send her new stuff out this pm. Discussed with pt need for proper glucose monitoring/control and informed will notify hospitalist of pt needing SSI since pump is out of insulin and pt does not have access to new supplies today.
--- NOTE | 2021-11-17 12:00 | PN.HOSP_ITS ---
Subjective Subjective Diarrhea improved, but ongoing. Has abdominal cramping and pain. Objective Data Objective Data Vital Signs: Vital Signs Temp Pulse Resp BP Pulse Ox O2 Del Method 36.5 C L 66 18 125/59 H 97 Room Air 11/17/21 07:43 11/17/21 08:50 11/17/21 07:43 11/17/21 07:43 11/17/21 07:43 11/17/21 07:43 Oxygen Delivery Method Room Air Weight: 91 kg Body Mass Index (BMI) 30.8 Intake & Output: Intake and Output for Last 24 Hours 11/15/21 11/16/21 11/17/21 23:59 23:59 23:59 Intake Total 2193.75 / 2193.75 3422.75 / 3422.75 1999 / 1999 Output Total 450 / 450 1999 / 2350 1700 / 1700 Balance 1743.75 / 1743.75 1422.75 / 1072.75 300 / 300 Lab / Micro Data Result Diagrams: 11/17/21 04:30 11/17/21 04:30 Labs: Laboratory Results - last 24 hr 11/17/21 04:30: WBC 9.2, RBC 3.97 L, Hgb 11.1 L, Hct 34.5 L, MCV 86.9, MCH 28.0, MCHC 32.2, RDW Std Deviation 52.3 H, RDW Coeff of Jan 16.4 H, Plt Count 139 L, MPV 12.3 H, Immature Gran % (Auto) 0.400, Neut % (Auto) 59.7, Lymph % (Auto) 26.8, Real % (Auto) 6.0, Eos % (Auto) 6.9 H, Baso % (Auto) 0.2, Absolute Neuts (auto) 5.5, Absolute Lymphs (auto) 2.47, Nucleated RBC % 0 11/17/21 04:30: Sodium 138, Potassium 4.3, Chloride 111 H, Carbon Dioxide 20.0 L , Anion Gap 7, BUN 34 H, Creatinine 1.90 H, Estim Creat Clear Calc 29.47, Est GFR (MDRD) Af Amer 34 L, Est GFR (MDRD) Non-Af 28 L, BUN/Creatinine Ratio 17.9, Glucose 199 H, Calcium 8.6 Micro: Microbiology 09/10/22 17:23 Stool Stool Lactoferrin - Final 11/15/21 10:22 Stool Enteric Bacteriology - Final 11/15/21 10:22 Stool C. difficile DNA Amplification - Final Physical Exam Const alert and no apparent distress Resp normal respiratory effort, no retractions, no use of accessory muscles and clear to auscultation bilaterally Cardio regular rate, regular rhythm, S1 normal heart sound and S2 normal heart sound GI normal to inspection, nondistended, normoactive bowel sounds and soft to palpation GI Narrative: RLQ tenderness. Ostomy in LLQ Psych affect normal Assessment & Plan Assessment/Plan (1) High output ileostomy: PLAN: 2/2 short-gut syndrome, complicated by gastroparesis exact etiology unclear probably viral/bacterial: Patient is being admitted in MedSurg floor on tax accounting assistant. Blood pressure 124/69, heart rate 75/min. Continue IV fluid normal saline at 125 mill per hour. Stool for C. difficile and enteric pathogen panel negative. Stool for WBC ordered. CT abdomen pelvis individually reviewed. Left lower quadrant ostomy free of acute inflammation or abnormality. No ileus or obstruction. No free intraperitoneal fluid or air Or suspicious adenopathy No suspicious solid organ abnormality, stable simple right renal cyst 11/16: Leukocytosis improving. No fever. Exact etiology unclear possible mucosal of left small bowel is not functional or healthy therefore no effective absorption. Follow-up with Dr. Artis. Patient is a well-known good candidate for bowel transplant. 11/17: EDWARD Andino. Recommends 24-26h pantoprazole and octreotide gtt (2) Acidosis, lactic: PLAN: resolved. likely 2/2 dehydration (3) Acute dehydration: PLAN: 2/2 [place] resolved (4) CKD (chronic kidney disease), stage IV: PLAN: Acute kidney injury--ruled out Patient had just trickle of urine for last 2 days therefore oliguria with RALPH. 11/14: IV fluid changed to Ringer lactate. Creatinine from 2.0-2 2.2. BUN si milar. 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 Advised to continue insulin pump record glucose on glucose sensor. 11/16: Glucose is controlled 116. * History of NAFLD and fatty liver: ALT AST normal. Alkaline phosphatase 138.? ? Patient follows Dr. Andino.? Patient had liver biopsy in December 2020, macrovesicular stasis disease, F2/F3 by liver biopsy and elastography.? No cirrhosis.? Patient also has diabetes gastroparesis.? On ursodiol, vitamin D, vitamin D, statin and aspirin. * ulcerative colitis with short-bowel syndrome, * MGUS, * history of past smoking more than 20 packs, * chronic hypoxic respiratory failure, * avascular necrosis of left hip status post left hip replacement, * myoclonic jerking, * chronic back pain, * psoriasis, * coronary artery status post CABG, * chronic diastolic heart failure, * secondary pulmonary artery hypertension, * obstructive sleep apnea, * COPD and * anemia of chronic kidney disease * chronic back pain. VTE prophylaxis: Heparin 500 subcutaneous twice daily. Bilateral SCDs Charges/Coding Visit Charges Inpatient E&M: 04069 [facility] Hosp L3
[2021-11-17] MEDS: oxyCODONE 5 MG Tablet PO (12:05)
[2021-11-17] MEDS: 0.9% Saline Lock 10 ML Syringe IV (14:58)
[2021-11-17] MEDS: Insulin Lispro 100 UNIT/ML INSULN.PEN SC ×2 (16:23→22:45)
[2021-11-17] MEDS: Lactated Ringers 1,000 ML 75 ML IV (16:25)
[2021-11-17 16:30] LABS: Bedside Glucose 269 mg/dL (74-106)
[2021-11-17] MEDS: Ondansetron 4 MG/2 ML Vial IV (19:45)
[2021-11-17] MEDS: Atorvastatin Calcium 80 MG Tablet PO (21:25)
[2021-11-17 22:00] LABS: Bedside Glucose 260 mg/dL (74-106)
[2021-11-17] MEDS: Diphenoxylate/Atrop 1 Tablet PO (23:43)
[2021-11-18] VITALS (11 sets, daily range): BP systolic 147–160; BP diastolic 64–75; PULSE 62–80; RESP 16–18; TEMP 36.7–37; O2SAT 94–99
[2021-11-18] MEDS: Nitroglycerin (INPATIENT USE) 0.4 MG TAB.SUBL SL ×2 (01:30→01:36)
--- NOTE | 2021-11-18 02:00 | NURSING ---
Patient complained of chest pain around the bra strap area rating it a 7/10. Blood pressure was 152/69 and Nitroglycerin was administered. Five minutes went by and patient rated pain a 5/10 so another dose of Nitroglycerin was administered. Patient then rated pain a 2/10, denied additional needs, and did not want the third dose of Nitroglycerin stating It helped, I don't need anything else.
[2021-11-18] MEDS: Lactated Ringers 1,000 ML 75 ML IV (05:54)
[2021-11-18] MEDS: Insulin Lispro 100 UNIT/ML INSULN.PEN SC ×2 (06:00→11:45)
[2021-11-18 06:11] LABS: Absolute Lymphocyte Count 2.34 X10^3/uL (0.83-4.51); Absolute Neutrophil Count 5.2 X10^3/uL (2.0-7.7); Basophil# 0.03 X10^3/uL; Basophil% 0.3 % (0-1); Eosinophil# 0.83 X10^3/uL; Eosinophils% 9.3 % (0-5); Hematocrit 33.4 % (37-47); Hemoglobin 10.6 g/dL (12.0-15.0); Lymphocyte # 2.34 X10^3/ul (0.83-4.51); Lymphocyte % 26.2 % (19-41); Mean Corp Hgb Conc 31.7 g/dL (32-36); Mean Corpuscular Hgb 27.7 pg (27.0-32.0); Mean Corpuscular Volume 87.2 fL (81-99); Mean Platelet Vol. 12.7 fl (6.2-12.0); Monocyte# 0.51 X10^3/uL; Monocyte% 5.7 % (0-10); NRBC Flagged by Analyzer 0 % (0-5); Neutrophil # 5.15 X10^3/uL (2.7-7.7); Neutrophil % 57.6 % (47-70); Platelet Count 151 K/mm3 (150-450); RBC Distribution Width CV 15.9 % (11.6-14.6); RBC Distribution Width SD 50.5 fl (35.1-43.9); Red Blood Count 3.83 M/mm3 (4.2-5.4); White Blood Count 8.9 K/mm3 (4.4-11.0)
[2021-11-18 06:20] LABS: Bedside Glucose 212 mg/dL (74-106)
[2021-11-18 06:52] LABS: Anion Gap 8 (5-15); BUN 23 mg/dL (7-18); BUN/Creat Ratio 13.7 RATIO (10-20); Calcium,Total 8.7 mg/dL (8.5-10.1); Chloride 108 mmol/L (98-107); Creatinine, Serum 1.68 mg/dL (0.55-1.02); EST Glomerular Filtration Rate 33 mL/min (>60); Est Glom Filt Rate - Afr Amer 40 mL/min (>60); Estimated Creatinine Clearance 33.33 ml/min; Glucose 221 mg/dL (74-106); Potassium 4.4 mmol/L (3.5-5.1); Sodium Level 137 mmol/L (136-145)
--- NOTE | 2021-11-18 07:41 | PN.HOSP_ITS ---
Subjective Subjective Was doing well last night but then had diarrhea that was watery this morning. Still with abdominal cramping. Objective Data Objective Data Vital Signs: Vital Signs Temp Pulse Resp BP Pulse Ox O2 Del Method O2 Flow Rate 37.0 C 69 16 157/75 H 96 Room Air 94 11/18/21 01:42 11/18/21 04:22 11/18/21 01:42 11/18/21 01:42 11/18/21 01:42 11/18/21 01:42 11/17/21 13:40 Oxygen Flow Rate (L/min) 94 Oxygen Delivery Method Room Air Weight: 94.6 kg Body Mass Index (BMI) 30.8 Intake & Output: Intake and Output for Last 24 Hours 11/16/21 11/17/21 11/18/21 23:59 23:59 23:59 Intake Total 3422.75 / 3422.75 2826.25 / 3176.25 1689.67 / 1689.67 Output Total 2000 / 2350 2850 / 3550 1100 / 1100 Balance 1422.75 / 1072.75 -23.75 / -373.75 589.67 / 589.67 Lab / Micro Data Result Diagrams: 11/18/21 05:47 11/18/21 05:47 Labs: Laboratory Results - last 24 hr 11/17/21 16:12: POC Glucose 269 H 11/17/21 21:24: POC Glucose 260 H 11/18/21 05:47: WBC 8.9, RBC 3.83 L, Hgb 10.6 L, Hct 33.4 L, MCV 87.2, MCH 27.7, MCHC 31.7 L, RDW Std Deviation 50.5 H, RDW Coeff of Jan 15.9 H, Plt Count 151, MPV 12.7 H, Immature Gran % (Auto) 0.900, Neut % (Auto) 57.6, Lymph % (Auto) 26.2, [place] % (Auto) 5.7, Eos % (Auto) 9.3 H, Baso % (Auto) 0.3, Absolute Neuts (auto) 5.2, Absolute Lymphs (auto) 2.34, Nucleated RBC % 0 11/18/21 05:47: Sodium 137, Potassium 4.4, Chloride 108 H, Carbon Dioxide 21.0, Anion Gap 8, BUN 23 H, Creatinine 1.68 H, Estim Creat Clear Calc 33.33, Est GFR (MDRD) Af Amer 40 L, Est GFR (MDRD) Non-Af 33 L, BUN/Creatinine Ratio 13.7, Glucose 221 H, Calcium 8.7 11/18/21 05:58: POC Glucose 212 H Micro: Microbiology 11/15/21 17:23 Stool Stool Lactoferrin - Final 11/15/21 10:22 Stool Enteric Bacteriology - Final 11/15/21 10:22 Stool C. difficile DNA Amplification - Final Physical Exam Const alert Resp normal respiratory effort, no retractions, no use of accessory muscles and clear to auscultation bilaterally Cardio regular rate, regular rhythm, S1 normal heart sound and S2 normal heart sound GI normal to inspection, nondistended, normoactive bowel sounds, soft to palpation, non-tender and non-distended Extremity normal to inspection Assessment & Plan Assessment/Plan (1) High output ileostomy: PLAN: 2/2 short-gut syndrome, complicated by gastroparesis Stool for C. difficile and enteric pathogen panel negative. Stool for WBC ordered. CT abdomen pelvis individually reviewed. Left lower quadrant ostomy free of acute inflammation or abnormality. No ileus or obstruction. No free intraperitoneal fluid or air Or suspicious adenopathy No suspicious solid organ abnormality, stable simple right renal cyst 11/16: Leukocytosis improving. No fever. Exact etiology unclear possible mucosal of left small bowel is not functional or healthy therefore no effective absorption. Follow-up with Dr. Artis. Patient is a well-known good candidate for bowel transplant. 11/17: DW Dr. Andino. Recommends 24-26h pantoprazole and octreotide gtt (2) Acidosis, lactic: PLAN: resolved. likely 2/2 dehydration (3) Acute dehydration: PLAN: 2/2 [place] resolved (4) CKD (chronic kidney disease), stage IV: PLAN: Acute kidney injury--ruled out Patient had just trickle of urine for last 2 days therefore oliguria with RALPH. 11/14: IV fluid changed to Ringer lactate. Creatinine from 2.0-2 2.2. BUN similar. 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 Advised to continue insulin pump record glucose on glucose sensor. 11/16: Glucose is controlled 116. * History of NAFLD and fatty liver: ALT AST normal. Alkaline phosphatase 138.? ? Patient follows Dr. Andino.? Patient had liver biopsy in December 2020, macrovesicular stasis disease, F2/F3 by liver biopsy and elastography.? No cirrhosis.? Patient also has diabetes gastroparesis.? On ursodiol, vitamin D, vitamin D, statin and aspirin. * ulcerative colitis with short-bowel syndrome, * MGUS, * history of past smoking more than 20 packs, * chronic hypoxic respiratory failure, * avascular necrosis of left hip status post left hip replacement, * myoclonic jerking, * chronic back pain, * psoriasis, * coronary artery status post CABG, * chronic diastolic heart failure, * secondary pulmonary artery hypertension, * obstructive sleep apnea, * COPD and * anemia of chronic kidney disease * chronic back pain. VTE prophylaxis: Heparin 500 subcutaneous twice daily. Bilateral SCDs Charges/Coding Visit Charges Inpatient E&M: 20620 Subs Hosp L2
[2021-11-18 08:05] LABS: Hemoglobin A1c 7.4 % (3.8-5.6)
[2021-11-18] MEDS: Heparin Injection (Vial) 5,000 UNIT/ML VIAL 5000 UNIT SC (08:34)
[2021-11-18] MEDS: DULoxetine Hcl 60 MG Capsule PO (08:34)
[2021-11-18] MEDS: Ursodiol 250 MG Tablet PO (08:35)
[2021-11-18] MEDS: Triamcinolone 0.5% Cream 1 APPLIC TOPICAL (08:35)
[2021-11-18] MEDS: Aspirin E.C. 81 MG Tablet PO (08:35)
[2021-11-18] MEDS: Clopidogrel Bisulfate 75 MG Tablet PO (08:36)
[2021-11-18] MEDS: Metoprolol Tartrate 50 MG Tablet PO (08:36)
[2021-11-18] MEDS: Metoprolol Tartrate 25 MG Tablet PO (08:37)
[2021-11-18] MEDS: Hyoscyamine Sulfate 0.125 MG Tablet PO (08:50)
[2021-11-18] MEDS: Metoclopramide 10 MG/2 ML Vial 5 MG IV (08:59)
[2021-11-18] MEDS: 0.9% Saline Lock 10 ML Syringe IV (09:06)
[2021-11-18] MEDS: Isosorbide DN 30 MG Tablet PO (10:00)
--- NOTE | 2021-11-18 10:26 | CASEMGMT ---
Addendum entered by Naomi Jaimes 11/18/21 12:46: SVETLANA RAINEY back into pt room, pt states she does not want HHC therapy right now. She states she wants to see what her CM sets up. Discussed the difference between skilled and unskilled care. Pt declines HHC therapy at this time. Original Note: SVETLANA RAINEY made aware pt is interested in HHC therapy. SVETLANA RAINEY in to pt room, pt speaking on the phone, patient was provided a list of HHC providers including quality and resource use data and consistent with the patient?s preferred geographic region, medical needs, and insurance network were provided from the [employer] [facility]. Pt states that her case packer at the counseling center is working on setting up her HHC. Made pt aware this is for unskilled care and explained that the therapy is skilled care. Person on phone asking why patient needs therapy at home. Pt states I am confused. Pt wishes to look at list and SVETLANA RAINEY to come back to answer any questions and obtain choices.
[2021-11-18] MEDS: Pregabalin 75 MG Capsule PO (10:36)
[2021-11-18 12:05] LABS: Bedside Glucose 302 mg/dL (74-106)
[2021-11-18] MEDS: Glucerna Shake 120 ML LIQUID PO (13:37)
--- NOTE | 2021-11-18 15:27 | NURSING ---
pt states she removed her own buprenorphine patch that was on her right arm and threw it in the trash. Said nurse retrieve patch (10mcg) and disposed of properly as verified by Ophelia MOTA.
--- NOTE | 2021-11-18 15:32 | DCINST_ITS ---
Discharge Instructions Diet Discharge Diet: 2000 Calorie Control Diet Dressing / Incision Call your doctor if you observe: - (Intractable abdominal pain. Intractable diarrhea. Intractable nausea and vomiting.) Follow Up Care Test Results: Test results from this visit will be discussed in further detail at your follow- up appointment, if applicable. Discharge Plan Admission Admit Date/Time: 11/15/21 13:10 Primary Reason for Your Visit: Diarrhea. Dehydration. Attending Provider: Shiva Chandler Primary Care Provider: Mala Mcgrath Consulting Providers: Castillo Ferris Discharge Orders/Prescriptions Prescriptions: New acetaminophen [Tylenol] 325 mg Tablet 650 mg PO Q6H PRN PRN (Reason: Pain Score 1-10/Temp > 100.7 F) Qty: 0 0RF Buprenorphine 1 patch topical QWEEK Qty: 0 0RF loperamide [Imodium A-D] 2 mg capsule 2 mg PO Q6H PRN (Reason: loose stool) Qty: 20 0RF dicyclomine 10 mg capsule 10 mg PO TID PRN (Reason: abdominal cramp) Qty: 30 0RF Continued duloxetine 30 mg capsule,delayed release(DR/EC) 60 mg PO BID aspirin 81 mg Tablet,Delayed Release (Dr/Ec) 81 mg PO DAILY clopidogrel 75 mg tablet 75 mg PO DAILY Hold Instructions: Resume the day after completion of Eliquis Rx Instructions: TAKE 1 TABLET BY MOUTH EVERY DAY metoclopramide HCl [Reglan] 5 mg Tablet 5 mg PO DAILY PRN (Reason: reflux) mupirocin 2 % ointment 1 applic topical BID PRN (Reason: Rash) Rx Instructions: around wound vitamin E (dl, acetate) 180 mg (400 unit) capsule 360 mg PO DAILY (DME) True Metrix Glucose Test Strip Strip See Rx Instructions .ROUTE Rx Instructions: 3 times per day betamethasone dipropionate 0.05 % cream 1 applic topical DAILY metoprolol tartrate 25 mg tablet 25 mg PO BID Rx Instructions: Takes 25 mg + 50 mg tablet to + 75 mg BID (DME) Dexcom G6 Sensor Device See Rx Instructions .ROUTE .MEDSUPPLY Rx Instructions: 1 sensor every 10 days (DME) Dexcom G6 Box Toe Flanger Stitchdowns Misc See Rx Instructions .ROUTE .MEDSUPPLY Rx Instructions: As directed (DME) Dexcom G6 Transmitter Device See Rx Instructions .ROUTE .MEDSUPPLY Rx Instructions: 1 transmitter every 90 days (DME) pen needle, diabetic [BD Ultra-Fine Key Pen Needle] 32 gauge x 5/32 needle See Rx Instructions .ROUTE .MEDSUPPLY Rx Instructions: takes 5 injection/day Humalog KwikPen Insulin 200 unit/mL (3 mL) insulin pen 250 unit subcut .continuous Rx Instructions: To be given via insulin pump. Patient is aware she will have to draw insulin from pen to place in pump. (DME) Omnipod 5 G6 Pods (Gen 5) Cartridge See Rx Instructions .Route Rx Instructions: 1 pod q 48 hours (DME) Insulin Basal Pump (Pt's Own) [Pump, Basal] See Rx Instructions Rx Instructions: use as directed (DME) Wheel Chair See Rx Instructions Rx Instructions: As directed buprenorphine 10 mcg/hour Patch Weekly 1 patch TRANSDERMAL Q7D Rx Instructions: changes on Sundays isosorbide dinitrate 30 mg tablet 30 mg PO BID Qty: 60 11RF pantoprazole 40 mg tablet,delayed release (DR/EC) 40 mg PO DAILY Qty: 90 3RF diphenoxylate-atropine [Lomotil] 2.5-0.025 mg tablet 1 tab PO TID PRN (Reason: diarrhea) Qty: 90 0RF insulin lispro [Humalog KwikPen Insulin] 100 unit/mL insulin pen 60 unit SUBCUT TID MDD 250 Qty: 225 1RF Rx Instructions: plus SSI: 180 + 5; 220 +10; 240 +15; 270 +20 atorvastatin 80 mg tablet 80 mg PO QHS Qty: 90 3RF Label Comments: cholesterol metoprolol tartrate 50 mg tablet 50 mg PO BID Qty: 180 3RF Rx Instructions: TAKES 50mg and 25mg TO MAKE 75 MG DOSE. ursodiol 300 mg capsule 300 mg PO BID Qty: 180 1RF pregabalin 75 mg capsule 75 mg PO BID Qty: 60 1RF ondansetron 4 mg tablet,disintegrating 4 mg PO Q6H PRN (Reason: nausea and vomiting) Qty: 90 0RF hyoscyamine sulfate 0.125 mg tablet 0.125 mg PO Q6H PRN (Reason: dyspepsia) Qty: 60 2RF Referrals / Follow Up: [facility] [Provider Group] - 12/16/21 11:00 am [facility] [Provider Group] - 11/20/21 10:30 am *[facility] [Provider Group] - 12/30/21 11:00 am Mala Mcgrath MD [Primary Care Provider] - Within 2 Weeks Disposition Disposition (needs filled in before D/C Order can be placed): Home, Self Care
--- NOTE | 2021-11-18 15:43 | PCM.DC.SUM ---
Providers Date of Admission: 11/15/21 Primary Care Physician: Dr. Mala Mcgrath MD Reason For Visit: N/V/D, RALPH FROM PRERENAL Diagnosis Discharge Diagnosis (1) High output ileostomy: Status: Acute Code(s): R19.8 - Other specified symptoms and signs involving the digestive system and abdomen; Z93.2 - Ileostomy status Plan: 2/2 short-gut syndrome, complicated by gastroparesis Stool for C. difficile and enteric pathogen panel negative. Stool for WBC ordered. CT abdomen pelvis individually reviewed. Left lower quadrant ostomy free of acute inflammation or abnormality. No ileus or obstruction. No free intraperitoneal fluid or air Or suspicious adenopathy No suspicious solid organ abnormality, stable simple right renal cyst 11/16: Leukocytosis improving. No fever. Exact etiology unclear possible mucosal of left small bowel is not functional or healthy therefore no effective absorption. Follow-up with Dr. Artis. Patient is a well-known good candidate for bowel transplant. 11/17: DW Dr. Andino. Recommends 24-26h pantoprazole and octreotide gtt 11/18: Improved. Patient will be discharged and will continue with low motel. Patient can take [id number] loperamide as well. Patient has been advised that this can recur given the extensive colonic resections that she has had. Patient has had her leta colon removed and about one third of her small bowel. (2) Acidosis, lactic: Status: Acute Code(s): E87.2 - Acidosis Plan: resolved. likely 2/2 dehydration (3) Acute dehydration: Status: Acute Code(s): E86.0 - Dehydration Plan: 2/2 [place] resolved (4) CKD (chronic kidney disease), stage IV: Status: Chronic Code(s): N18.4 - Chronic kidney disease, stage 4 (severe) Plan: Acute kidney injury--ruled out Patient had just trickle of urine for last 2 days therefore oliguria with RALPH. 11/14: IV fluid changed to Ringer lactate. Creatinine from 2.0-2 2.2. BUN similar. Change IV fluid Ringer lactate 250 mill per hour (5) Hyperkalemia: Status: Acute Code(s): E87.5 - Hyperkalemia Plan: resolved Plan Chronic conditions: Diabetes mellitus type 2 with gastroparesis with diabetic patient has glucose sensor and pump neuropathy:. Advised to continue insulin pump record glucose on glucose sensor. 11/16: Glucose is controlled 116. History of NAFLD and fatty liver: ALT AST normal. Alkaline phosphatase 138.? ? Patient follows Dr. Andino.? Patient had liver biopsy in December 2020, macrovesicular stasis disease, F2/F3 by liver biopsy and elastography.? No cirrhosis.? Patient also has diabetes gastroparesis.? On ursodiol, vitamin D, vitamin D, statin and aspirin. ulcerative colitis with short-bowel syndrome, MGUS, history of past smoking more than 20 packs, chronic hypoxic respiratory failure, avascular necrosis of left hip status post left hip replacement, myoclonic jerking, chronic back pain, psoriasis, coronary artery status post CABG, chronic diastolic heart failure, secondary pulmonary artery hypertension, obstructive sleep apnea, COPD and anemia of chronic kidney disease chronic back pain. VTE prophylaxis: Heparin 500 subcutaneous twice daily. Bilateral SCDs Medications at Discharge Home Medications isosorbide dinitrate 30 mg tablet 30 mg PO BID heart #60 tabs 01/28/21 aspirin 81 mg tablet,delayed release 81 mg PO DAILY Check with primary doctor 04/08/21 clopidogrel 75 mg tablet 75 mg PO DAILY Check with primary doctor 04/22/21 metoclopramide HCl 5 mg tablet (Reglan) 5 mg PO DAILY PRN reflux 04/22/21 pantoprazole 40 mg tablet,delayed release 40 mg PO DAILY gerd #90 tabs 05/09/21 diphenoxylate-atropine 2.5 mg-0.025 mg tablet (Lomotil) 1 tab PO TID PRN diarrhea #90 tabs 05/19/21 insulin lispro 100 unit/mL subcutaneous pen (Humalog KwikPen (U-100) Insulin) 60 unit (0.6 mL) subcut TID Glucose control #225 mL 07/21/21 atorvastatin 80 mg tablet 80 mg PO QHS CHOLESTEROL LOWERING #90 tabs 08/29/21 metoprolol tartrate 50 mg tablet 50 mg PO BID blood pressure #180 tabs 09/01/21 ursodiol 300 mg capsule 300 mg PO BID Check with primary doctor #180 caps 09/26/21 pregabalin 75 mg capsule 75 mg PO BID pain #60 caps 10/03/21 duloxetine 30 mg capsule,delayed release 60 mg PO BID Check with primary doctor 10/06/21 mupirocin 2 % topical ointment 1 applic topical BID PRN Rash 10/15/21 vitamin E (dl, acetate) 180 mg (400 unit) capsule 360 mg PO DAILY vitamin 10/15/21 hyoscyamine sulfate 0.125 mg tablet 0.125 mg PO Q6H PRN dyspepsia #60 tabs 11/04/21 ondansetron 4 mg disintegrating tablet 4 mg PO Q6H PRN nausea and vomiting #90 tabs 11/04/21 Insulin Basal Pump (Pt's Own) [Pump, Basal] 11/15/21 Wheel Chair 11/15/21 betamethasone dipropionate 0.05 % topical cream 1 applic topical DAILY cream 11/15/21 blood sugar diagnostic (True Metrix Glucose Test Strip) 11/15/21 blood-glucose meter,continuous (Dexcom G6 Executive Meeting Manager misc) 11/15/21 blood-glucose sensor (Dexcom G6 Sensor device) 11/15/21 blood-glucose transmitter ([employer] G6 Transmitter device) 11/15/21 insulin lispro 200 unit/mL (3 mL) subcutaneous pen (Humalog KwikPen U-200 Insulin) 250 unit subcut .continuous insulin 11/15/21 insulin pump cart,automated,BT (Omnipod 5 G6 Pods (Gen 5) subcutaneous cartridge) 11/15/21 metoprolol tartrate 25 mg tablet 25 mg PO BID bp 11/15/21 pen needle, diabetic 32 gauge x 5/32 (BD Ultra-Fine Key Pen Needle) 11/15/21 acetaminophen 325 mg tablet (Tylenol) 650 mg PO Q6H PRN PRN Pain Score 1-10/Temp > 100.7 F #0 tabs 11/18/21 buprenorphine 1 patch topical QWEEK ##0 11/18/21 buprenorphine 10 mcg/hour weekly transdermal patch 1 patch transdermal Q7D Check with primary doctor 11/18/21 dicyclomine 10 mg capsule 10 mg PO TID PRN abdominal cramp #30 caps 11/18/21 loperamide 2 mg capsule (Imodium A-D) 2 mg PO Q6H PRN loose stool #20 caps 11/18/21 Hospital Course Operations None Procedures None Summary of Care Provided Minutes Spent on Discharge: 32 Weight / BMI Weight Weight: 94.6 kg Body Mass Index (BMI) 30.8 ABG / Lab / Microbiology Data Result Diagrams: 11/18/21 05:47 11/18/21 05:47 Laboratory: Laboratory Results - last 24 hr 11/17/21 16:12: POC Glucose 269 H 11/17/21 21:24: POC Glucose 260 H 11/18/21 05:47: WBC 8.9, RBC 3.83 L, Hgb 10.6 L, Hct 33.4 L, MCV 87.2, MCH 27.7, MCHC 31.7 L, RDW Std Deviation 50.5 H, RDW Coeff of Jan 15.9 H, Plt Count 151, MPV 12.7 H, Immature Gran % (Auto) 0.900, Neut % (Auto) 57.6, Lymph % (Auto) 26.2, [place] % (Auto) 5.7, Eos % (Auto) 9.3 H, Baso % (Auto) 0.3, Absolute Neuts (auto) 5.2, Absolute Lymphs (auto) 2.34, Nucleated RBC % 0 11/18/21 05:47: Sodium 137, Potassium 4.4, Chloride 108 H, Carbon Dioxide 21.0, Anion Gap 8, BUN 23 H, Creatinine 1.68 H, Estim Creat Clear Calc 33.33, Est GFR (MDRD) Af Amer 40 L, Est GFR (MDRD) Non-Af 33 L, BUN/Creatinine Ratio 13.7, Glucose 221 H, Calcium 8.7 11/18/21 05:47: Hemoglobin A1c 7.4 H 11/18/21 05:58: POC Glucose 212 H 11/18/21 11:42: POC Glucose 302 H Microbiology: Microbiology 11/15/21 17:23 Stool Stool Lactoferrin - Final 11/15/21 10:22 Stool Enteric Bacteriology - Final 11/15/21 10:22 Stool C. difficile DNA Amplification - Final D/C Instructions Discharge Diet: 2000 Calorie Control Diet Call your doctor if you observe: - (Intractable abdominal pain. Intractable diarrhea. Intractable nausea and vomiting.) Meaningful Use Info Meaningful Use Diagnoses (Choose all that apply): None applicable Discharge Plan Admission Admit Date/Time: 11/15/21 13:10 Primary Reason for Your Visit: Diarrhea. Dehydration. Attending Provider: Shiva Chandler Primary Care Provider: Mala Mcgrath Consulting Providers: Castillo Ferris Discharge Orders/Prescriptions Prescriptions: New acetaminophen [Tylenol] 325 mg Tablet 650 mg PO Q6H PRN PRN (Reason: Pain Score 1-10/Temp > 100.7 F) Qty: 0 0RF Buprenorphine 1 patch topical QWEEK Qty: 0 0RF loperamide [Imodium A-D] 2 mg capsule 2 mg PO Q6H PRN (Reason: loose stool) Qty: 20 0RF dicyclomine 10 mg capsule 10 mg PO TID PRN (Reason: abdominal cramp) Qty: 30 0RF Continued duloxetine 30 mg capsule,delayed release(DR/EC) 60 mg PO BID aspirin 81 mg Tablet,Delayed Release (Dr/Ec) 81 mg PO DAILY clopidogrel 75 mg tablet 75 mg PO DAILY Hold Instructions: Resume the day after completion of Eliquis Rx Instructions: TAKE 1 TABLET BY MOUTH EVERY DAY metoclopramide HCl [Reglan] 5 mg Tablet 5 mg PO DAILY PRN (Reason: reflux) mupirocin 2 % ointment 1 applic topical BID PRN (Reason: Rash) Rx Instructions: around wound vitamin E (dl, acetate) 180 mg (400 unit) capsule 360 mg PO DAILY (DME) True Metrix Glucose Test Strip Strip See Rx Instructions .ROUTE Rx Instructions: 3 times per day betamethasone dipropionate 0.05 % cream 1 applic topical DAILY metoprolol tartrate 25 mg tablet 25 mg PO BID Rx Instructions: Takes 25 mg + 50 mg tablet to + 75 mg BID (DME) Dexcom G6 Sensor Device See Rx Instructions .ROUTE .MEDSUPPLY Rx Instructions: 1 sensor every 10 days (DME) Dexcom G6 Executive Meeting Manager Misc See Rx Instructions .ROUTE .MEDSUPPLY Rx Instructions: [place] directed [place] [place] Dexcom G6 Transmitter Device See Rx Instructions .ROUTE .MEDSUPPLY Rx Instructions: 1 transmitter every 90 days (DME) pen needle, diabetic [BD Ultra-Fine Key Pen Needle] 32 gauge x 5/32 needle See Rx Instructions .ROUTE .MEDSUPPLY Rx Instructions: takes 5 injection/day Humalog KwikPen Insulin 200 unit/mL (3 mL) insulin pen 250 unit subcut .continuous Rx Instructions: To be given via insulin pump. Patient is aware she will have to draw insulin from pen to place in pump. (DME) Omnipod 5 G6 Pods (Gen 5) Cartridge See Rx Instructions .Route Rx Instructions: 1 pod q 48 hours (DME) Insulin Basal Pump (Pt's Own) [Pump, Basal] See Rx Instructions Rx Instructions: use as directed (DME) Wheel Chair See Rx Instructions Rx Instructions: As directed buprenorphine 10 mcg/hour Patch Weekly 1 patch TRANSDERMAL Q7D Rx Instructions: changes on Sundays isosorbide dinitrate 30 mg tablet 30 mg PO BID Qty: 60 11RF pantoprazole 40 mg tablet,delayed release (DR/EC) 40 mg PO DAILY Qty: 90 3RF diphenoxylate-atropine [Lomotil] 2.5-0.025 mg tablet 1 tab PO TID PRN (Reason: diarrhea) Qty: 90 0RF insulin lispro [Humalog KwikPen Insulin] 100 unit/mL insulin pen 60 unit SUBCUT TID MDD 250 Qty: 225 1RF Rx Instructions: plus SSI: 180 + 5; 220 +10; 240 +15; 270 +20 atorvastatin 80 mg tablet 80 mg PO QHS Qty: 90 3RF Label Comments: cholesterol metoprolol tartrate 50 mg tablet 50 mg PO BID Qty: 180 3RF Rx Instructions: TAKES 50mg and 25mg TO MAKE 75 MG DOSE. ursodiol 300 mg capsule 300 mg PO BID Qty: 180 1RF pregabalin 75 mg capsule 75 mg PO BID Qty: 60 1RF ondansetron 4 mg tablet,disintegrating 4 mg PO Q6H PRN (Reason: nausea and vomiting) Qty: 90 0RF hyoscyamine sulfate 0.125 mg tablet 0.125 mg PO Q6H PRN (Reason: dyspepsia) Qty: 60 2RF Referrals / Follow Up: [facility] [Provider Group] - 12/16/21 11:00 am [facility] [Provider Group] - 11/20/21 10:30 am *[facility] [Provider Group] - 12/30/21 11:00 am Mala Mcgrath MD [Primary Care Provider] - Within 2 Weeks Disposition Disposition (needs filled in before D/C Order can be placed): Home, Self Care Charges/Coding Visit Charges Inpatient E&M: 30172 Disch Hosp
== END 2021-11-18 16:23 | disposition home or self-care (01) | DRG 392 ==
LOC: ED 13:12 → MS3 13:20
PROVIDERS: Admitting Provider Internal Medicine; Emergency Provider Emergency Medicine; PCP Internal Medicine
DX: K91.2 Postsurgical malabsorption, not elsewhere classified (principal); J96.11 Chronic respiratory failure with hypoxia; E87.2 Acidosis; I13.0 Hypertensive heart and chronic kidney disease with heart failure and stage 1 through stage 4 chronic kidney disease, or unspecified chronic kidney disease; I50.32 Chronic diastolic (congestive) heart failure; N18.4 Chronic kidney disease, stage 4 (severe); K51.90 Ulcerative colitis, unspecified, without complications; D63.1 Anemia in chronic kidney disease; E11.43 Type 2 diabetes mellitus with diabetic autonomic (poly)neuropathy; J44.9 Chronic obstructive pulmonary disease, unspecified; E11.42 Type 2 diabetes mellitus with diabetic polyneuropathy; E11.22 Type 2 diabetes mellitus with diabetic chronic kidney disease; Z79.4 Long term (current) use of insulin; Z93.2 Ileostomy status; R19.8 Other specified symptoms and signs involving the digestive system and abdomen; F41.8 Other specified anxiety disorders; G47.33 Obstructive sleep apnea (adult) (pediatric); I25.10 Atherosclerotic heart disease of native coronary artery without angina pectoris; K31.84 Gastroparesis; E86.0 Dehydration; E78.00 Pure hypercholesterolemia, unspecified; L40.9 Psoriasis, unspecified; E87.5 Hyperkalemia; E83.42 Hypomagnesemia; K76.0 Fatty (change of) liver, not elsewhere classified; D47.2 Monoclonal gammopathy; Z87.891 Personal history of nicotine dependence; Z86.16 Personal history of COVID-19; Z96.41 Presence of insulin pump (external) (internal); Z79.02 Long term (current) use of antithrombotics/antiplatelets; G89.29 Other chronic pain; Z79.82 Long term (current) use of aspirin; Z79.899 Other long term (current) drug therapy; Z99.81 Dependence on supplemental oxygen; E66.9 Obesity, unspecified; Z68.30 Body mass index [BMI] 30.0-30.9, adult
CPT/HCPCS: 36415; 74176; 80048; 80053; 81001; 82962; 83036; 83605; 83630; 83690; 83735; 84100; 84132; 85025; 87493; 87506; 93005; 99285; J7030; J7120; P9612; A4216; J2405

== ENCOUNTER → 2021-12-24 | Outpatient (CLI) | payer MEDICARE, MEDICAID, SELFPAY ==
[2020-11-27 10:47] VITALS: BMI 30.9
--- NOTE | 2021-12-24 09:30 | US_ITS ---
STUDY: ABDOMINAL ULTRASOUND - ELASTOGRAPHY REASON FOR VISIT: Female, 61 years old. MCDONALD. TECHNIQUE: Liver stiffness measurements were obtained on a [employer] RS 85 ultrasound machine using a CA 1-7 probe following the SRU guidelines. 3 measurements were obtained using a 2-D-SWE method. The IQR/M was 22% suggesting a quality data set. TECHNICAL QUALITY: Adequate. COMPARISON: Comparison is made with prior study done earlier today. FINDINGS: Liver: Fatty infiltration of the liver. Median liver stiffness measured 9.8 kPa. US/Elastography Parenchyma/Organ IMPRESSION: Liver stiffness measures 9.8 kPa compatible with F2-F3 (Mild to moderate liver fibrosis) Metavir score. Electronically Signed: Eric Spencer MD at 8:50 EDT ,
--- NOTE | 2021-12-24 09:52 | US_ITS ---
STUDY: ABDOMINAL ULTRASOUND - RIGHT UPPER QUADRANT REASON FOR VISIT: Female, 61 years old liver eval -- MCDONALD -- FATTY LIVER TECHNIQUE: Ultrasound evaluation of the right upper quadrant was performed with real-time and static posey-scale imaging. TECHNICAL QUALITY: Adequate. COMPARISON: Comparison is made with prior study dated 01/05/2018. FINDINGS: Liver: The liver measures 16.3 cm. There is increased echogenicity consistent with fatty infiltration. The bile ducts are within normal limits. There is hepatic color flow. The direction of portal flow is hepatopetal. There is no demonstrated mass lesion. Gallbladder: The patient is status post cholecystectomy. Common Bile Duct (C.B.D.): The common bile duct measures 4.1 mm. Pancreas: Normal size of the head, body and tail of the pancreas. There is increased echogenicity of the pancreas. There is no demonstrated pancreatic mass or cyst. Right Kidney: Normal size of the right kidney. The right kidney measures 10 cm x 5.1 cm x 4.8 cm. Normal renal cortex. The right cortex measures 1.4 cm. There is a 1.6 cm x 1.6 x 1.2 cm right renal cyst. There is no right hydronephrosis. US/Abdomen Limited IMPRESSION: Fatty infiltration of the liver. Right renal cyst. The patient is status post cholecystectomy. Electronically Signed: Eric Spencer MD at 8:48 EDT ,
== END | disposition home or self-care (01) ==
LOC: US 09:25
PROVIDERS: PCP Internal Medicine; Referring Provider Internal Medicine Gastroenterology; Visit Provider Internal Medicine Gastroenterology
DX: K76.0 Fatty (change of) liver, not elsewhere classified (principal); K51.90 Ulcerative colitis, unspecified, without complications
CPT/HCPCS: 76705; 76981

== ENCOUNTER → 2021-12-29 | Outpatient (CLI) | payer MEDICARE, MEDICAID, SELFPAY ==
[2020-11-27 10:47] VITALS: BMI 30.9
[2021-12-29 11:48] LABS: Mucous, Urine 0 SEEN /hpf (<or=2+)
[2021-12-29 12:28] LABS: Absolute Neutrophil Count 6.3 X10^3/uL (2.0-7.7); Basophil# 0.09 X10^3/uL; Basophil% 0.9 % (0-1); Eosinophil# 0.25 X10^3/uL; Eosinophils% 2.5 % (0-5); Hematocrit 40.4 % (37-47); Hemoglobin 12.6 g/dL (12.0-15.0); Lymphocyte % 26.8 % (19-41); Mean Corp Hgb Conc 31.2 g/dL (32-36); Mean Corpuscular Hgb 27.3 pg (27.0-32.0); Mean Corpuscular Volume 87.4 fL (81-99); Mean Platelet Vol. 12.7 fl (6.2-12.0); Monocyte# 0.63 X10^3/uL; Monocyte% 6.3 % (0-10); NRBC Flagged by Analyzer 0 % (0-5); Neutrophil # 6.34 X10^3/uL (2.7-7.7); Neutrophil % 62.9 % (47-70); Platelet Count 173 K/mm3 (150-450); RBC Distribution Width CV 15.8 % (11.6-14.6); RBC Distribution Width SD 50.4 fl (35.1-43.9); Red Blood Count 4.62 M/mm3 (4.2-5.4); White Blood Count 10.1 K/mm3 (4.4-11.0)
[2021-12-29 12:34] LABS: Color, Urine Yellow (Yellow); Glucose, Dipstick Normal (Normal); Ketone-Dipstick 5 mg/dl (Negative); Leukocyte Esterase-Dipstick 25 /ul (Negative); Nitrite-Dipstick Negative (Negative); Occult Blood-Urine 10 /ul (Negative); Protein-Dipstick 30 mg/dl (Negative); Specific Gravity, Urine 1.025 (1.002-1.030); Urine Bilirubin Dipstick Negative (Negative); Urine Clarity Clear (Clear); Urine Urobilinogen Normal (Normal)
[2021-12-29 12:48] LABS: Red Blood Cells-Urine 0-5 SEEN /hpf (0-5); Squamous Epithelial Cells - UA 5-10 SEEN /hpf (5-10); White Blood Cells 5-10 SEEN /hpf (0-5)
[2021-12-29 12:49] LABS: Bacteria 2+ /hpf (None Seen); Hyaline Cast 0-5 SEEN /lpf (0-5)
[2021-12-29 13:11] LABS: ALB/GLOB Ratio 0.8 RATIO (0.9-2.4); AST(SGOT) 14 U/L (15-37); Alanine Aminotransfer ALT/SGPT 17 U/L (13-56); Albumin, Serum 3.4 g/dL (3.2-5.0); Alkaline Phosphatase 161 U/L (45-117); Anion Gap 7 (5-15); BUN 39 mg/dL (7-18); BUN/Creat Ratio 21.8 RATIO (10-20); Calcium,Total 9.1 mg/dL (8.5-10.1); Chloride 109 mmol/L (98-107); Creatinine, Serum 1.79 mg/dL (0.55-1.02); EST Glomerular Filtration Rate 30 mL/min (>60); Est Glom Filt Rate - Afr Amer 37 mL/min (>60); Globulin 4.1 g/dL (2.2-4.2); Glucose 152 mg/dL (74-106); LDH 175 U/L (84-246); Potassium 4.2 mmol/L (3.5-5.1); Protein, Total 7.5 g/dL (6.4-8.2); Sodium Level 140 mmol/L (136-145)
[2021-12-29 19:41] LABS: Xtra Tube EP Lab EXTRA TUBE
[2021-12-31 00:07] LABS: Albumin 3.6 g/dL (2.9-4.4); Alpha-1-Globulins 0.2 g/dL (0.0-0.4); Alpha-2-Globulins 0.9 g/dL (0.4-1.0); Free Kappa Light Chains 48.8 mg/L (3.3-19.4); Free Lambda Light Chains 30.4 mg/L (5.7-26.3); Gamma Globulin 1.1 g/dL (0.4-1.8); Immunoglobulin A 284 mg/dL (87-352); Immunoglobulin G 1079 mg/dL (586-1602); Immunoglobulin M 68 mg/dL (26-217); PROEL- TOTAL PROTEIN 7.1 g/dL (6.0-8.5)
== END | disposition home or self-care (01) ==
LOC: BIMLAB 11:39
PROVIDERS: PCP Internal Medicine; Referring Provider Internal Medicine Hematology & Oncology; Visit Provider Internal Medicine Hematology & Oncology
DX: D47.2 Monoclonal gammopathy (principal); R10.9 Unspecified abdominal pain
CPT/HCPCS: 36415; 80053; 81001; 82784; 83615; 83883; 84165; 85025; 86334; 87086; 87088

== ENCOUNTER → 2022-01-08 | Outpatient (CLI) | payer MEDICARE, MEDICAID, SELFPAY ==
[2020-11-27 10:47] VITALS: BMI 30.9
--- NOTE | 2022-01-08 08:51 | RAD_ITS ---
STUDY: X-RAY BONE SURVEY COMPLETE REASON FOR EXAM: Female, 61 years old. R/O MYELOMA TECHNIQUE: One view of the pelvis was obtained. 2 views of the cervical spine were obtained. Views of the thoracic spine were obtained. 2 views of the lumbar spine were obtained. 2 views of the femur. 2 views of the humerus. : 2 views of the skull were obtained. 3 forearm images were obtained. COMPARISON: Chest x-ray January 07, 2021 with the comparison MRI January 14, 2021 FINDINGS: CHEST: The lungs are clear and expanded. There is no demonstrated pleural abnormality. There is mild cardiac enlargement. Sternotomy wires are seen midline. Normal mediastinum and marie. Normal visualized pulmonary arteries. Normal visualized aortic arch and descending thoracic aorta. Normal visualized thoracic spine. There is a suggestion of a nonacute fracture right rib 4 anteriorly. There is no demonstrated abnormality of the visualized soft tissue structures of the upper abdomen. PELVIS: There is a non-specific bowel gas pattern. There is a density overlying the left iliac crest that is suggestive of a colostomy. This is similar to the recent prior study November 15, 2021 Normal bilateral iliac wings, sacroiliac joints and visualized sacrum. Normal visualized bilateral superior and inferior pubic rami. Normal pubic symphysis. Normal ischial tuberosities. Normal visualized right femoral head. Normal right acetabulum. There is mild articular joint space narrowing of the right hip. There is a left hip arthroplasty. CERVICAL SPINE: 2 views. Seen through C6. There are degenerative changes of the anterior atlantoaxial articulation. Normal odontoid process. Normal cervical lordosis. There is minimal multi-level endplate spondylosis. There is minimal degenerative disc disease with multilevel disc space narrowing. Normal visualized intervertebral neuroforamina. There are atherosclerotic vascular calcifications of the carotid arteries. THORACIC SPINE: 2 views Normal kyphosis of the thoracic spine. There is no substantial scoliosis. There is multilevel endplate spondylosis of the thoracic vertebrae. There is minimal disc space narrowing. The soft tissue structures are unremarkable. LUMBAR SPINE: 2 views Normal lumbar lordosis. There is no substantial scoliosis. There is a normal alignment of the vertebrae. There is multilevel endplate spondylosis of the lumbar vertebrae. There is multi-level degenerative disc disease with multi-level disc space narrowing. Especially L5-S1. The soft tissue structures are unremarkable. RIGHT FEMUR: There is a nonspecific subtle focus of low attenuation within the distal femur that may represent artifact versus tiny lucencies which could be associated with a neoplastic process in the appropriate setting. There is one measuring 5 and 4 mm. No visualized fracture. Normal visualized soft tissue structure. LEFT FEMUR: 2 views there is a left hip arthroplasty. Appears to be in anatomic position and alignment. Normal visualized soft tissue structure. RIGHT HUMERUS : 2 views: bony mineralization appears grossly normal. There is no visualized fracture. There is no visualized obvious erosion. There is no demonstrated fracture or osseous destructive process. There is no demonstrated soft tissue abnormality. LEFT HUMERUS: 2 views There is no demonstrated fracture or osseous destructive process. There is no demonstrated soft tissue abnormality. SKULL: 2 view There is no demonstrated soft tissue swelling. Normal osseous calvarium. Normal visualized facial bones. Normal visualized paranasal sinuses. Additional imaging of the single view bilateral tibia and fibula are performed. There is a right tibia and fibula x-ray. There is no visualized lytic or sclerotic lesion. 2 age Forearm images were obtained. There is no visualized lytic or sclerotic lesion. RAD/Bone Survey Comp(Axial&Append) IMPRESSION: Overall no visualized punched-out lesions that could be associated with multiple myeloma with exception of very subtle 2 foci of low attenuation within the distal right femur. Status post sternotomy. Mild cardiomegaly. Electronically Signed: Julissa Albert MD at 3:27 EDT ,
== END | disposition home or self-care (01) ==
LOC: RAD 08:49
PROVIDERS: PCP Internal Medicine; Referring Provider Internal Medicine Hematology & Oncology; Visit Provider Internal Medicine Hematology & Oncology
DX: D47.2 Monoclonal gammopathy (principal)
CPT/HCPCS: 77075

== ENCOUNTER → 2022-02-05 | Outpatient (CLI) | payer MEDICARE, MEDICAID, SELFPAY ==
[2020-11-27 10:47] VITALS: BMI 30.9
[2022-02-05 15:29] LABS: Vitamin D,25 Hydroxy 22.4 ng/mL
[2022-02-05 15:42] LABS: Anion Gap 8 (5-15); BUN 27 mg/dL (7-18); BUN/Creat Ratio 14.7 RATIO (10-20); Calcium,Total 8.5 mg/dL (8.5-10.1); Chloride 108 mmol/L (98-107); Cholesterol 153 mg/dL (200); Creatinine, Serum 1.84 mg/dL (0.55-1.02); EST Glomerular Filtration Rate 29 mL/min (>60); Est Glom Filt Rate - Afr Amer 36 mL/min (>60); Glucose 370 mg/dL (74-106); High Density Lipoprotein 52 mg/dL; Potassium 4.5 mmol/L (3.5-5.1); Sodium Level 139 mmol/L (136-145); Thyroid Stim Hormone (TSH) 1.23 uIU/mL (0.358-3.74); Triglycerides 355 mg/dL; Very Low Density Lipoprotein 71 mg/dL (5-40)
[2022-02-05 15:45] LABS: Microalbumin:Creatinine Ratio 102.7 mg/g CRE (<30 mg/g CRE); Protein, Urine (Random) 58.7 mg/dL (<11.9); Protein:Creat Ratio 394 mg/g CRE (0-200)
== END | disposition home or self-care (01) ==
LOC: LAB 13:38
PROVIDERS: Nurse Practitioner Family; PCP Internal Medicine; Referring Provider Internal Medicine Nephrology; Visit Provider Internal Medicine Nephrology
DX: E11.22 Type 2 diabetes mellitus with diabetic chronic kidney disease (principal); Z93.2 Ileostomy status; N18.32 Chronic kidney disease, stage 3b; R19.8 Other specified symptoms and signs involving the digestive system and abdomen; E55.9 Vitamin D deficiency, unspecified
CPT/HCPCS: 36415; 80048; 80061; 82043; 82306; 82570; 84156; 84443

== ENCOUNTER 2022-02-09 13:00 | Outpatient (RCR) | payer MEDICARE, MEDICAID, SELFPAY ==
[2020-11-27 10:47] VITALS: BMI 30.9
--- NOTE | 2022-01-08 13:57 | HP.PTEVAL ---
Patient's Visit Information ASHLEY MÉNDEZ is a 61 year old F referred to Physical Therapy by Dr. Mala Mcgrath MD with a diagnosis of Weakness. Date of Evaluation: 01/08/22 Physical Therapist: Fabiola Mitchell DPT - Visit Plan Frequency: 2x /Week Duration: 4 Weeks Plan: Focus on LE and core s/s- proprioception and functional mobility. HEP Given IE: Supine TA contraction, glut sets, hip add, seated marching, HS stretch, standing marching and HR - Subjective Patient reports that she is experiencing weakness in bilateral LE- if she walks any distance or standing for any amount of time, steps and getting in/out of the shower is difficult. They feel tired. This has been going on for a month. She had her left hip replaced in May- did rehab and was doing great. All of a sudden her back suddenly started bothering her. She had in injection in her spine about [address] Wright and it seems to have increased the pain and weakness in bilateral LE. She had x-rays taken today and laying on that table almost killed her. They are checking for bone marrow cancer (10% chance). 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 She has COPD, DM and CHF and 11 stents. She has an ileostomy for about 15 years- lots of GI issues. No rhythm or reason to the mobility. She has used a cane on/off for a long time but has picked it up in the last 2 weeks ago. She is using rollator at home. She has had a few falls recently- fell in her bedroom but fell onto the bed and in the shower- last fall was 3 days ago. Lives alone-does have a life alert button. She dresses herself and drives- can't get in/out of the shower so she is sponge bathing- she just this week got the phone call for [facility]- [facility] 2x a week. First floor apt- single step to enter- no issues. She reports lumbar pain is there all the time- agg: trying to do anything eases: heating pad, aspercream, Excedrin arthritis Worst: 09/14 Best: 04/17. She wears a pain patch and the dosage has been dropped. She feels like she is going backwards. Sleep: disturbed- back and side sleeper. She can get comfortable in her bed- the head does raise/lower. Pain is located along the back- radiates to the knees on both legs. Describes the pain as dull and achy all the time and sharp if she moves wrong. She is not very active- recliner. She has had recent x-rays. PMHx/Meds: no changes since onc note 01/06/22 - Objective Posture: FH, RS- can correct with tactile cues but does not maintain and reports pain. Gait: slow chris- forward posture- straight cane- SOB. Stairs: reports single step with bilateral HR and unable to perform more than 1-2. HR/TR: able with UE A. SLS: weight shift but reports pain. ROM: Lumbar: Flexion: severe, Extn: severe, SB: mod, Rot: mod all with pain, LE bilateral: WFL. Sensation: WFL to gross touch bilateral LE. Reflex: 2+ to patella bilateral. Strength: Core: poor Hip: left: 4-/5 with pain, Right: 3+/5 with pain throughout, Knee: 4+/5, Ankle: 5/5. Flex: HS: severe, Gastroc: mod. Palpation: tender throughout lumbar paraspinals - Special Tests L/S Slump test left side: Positive L/S Slump test right side: Positive L/S Left Straight Leg Raise: Positive L/S Right Straight Leg Raise: Positive R Hip SHAILESH - Intraarticular Pathology: Positive R Hip FADDIR - Labrum: Positive - Balance/Special Test Scores Lower Extremity Functional Score: 8 - Goals Goal 1:: Patient will be I with HEP and progression Goal Time Frame: 4-6 Weeks Goal 2:: Patient will maintain proper posture t.o tx session to demo increased core s.s Goal Time Frame: 4-6 Weeks Goal 3:: Patient will ambulate >300 feet with a normalized gait pattern and LRD Goal Time Frame: 4-6 Weeks Goal 4:: Patient will asc/desc 8 stairs recip with 1 HR Goal Time Frame: 4-6 Weeks Goal 5:: Patient will report 80% improvement Goal Time Frame: 4-6 Weeks - Rehabilitation Potential Physical Therapy Diagnosis: Patient presents with hypomobility- she has decreased LE and core s/s, flex and muscular endurance leading to poor posture and increased pain with ADL's. Rehabilitation Potential: Fair - Anticipated Interventions Patient/Client Instruction: Educate patient on: Benefits of Fitness Program Therapeutic Exercise to Include: Strength training, Endurance training, Balance training, Coordination, Agility training, Body mechanics, Postural training, Flexibilty training, Gait and locomotor training, Neuromotor development, Dynamic Lumbar Stabilization, Scapular Strength/Stabilization For the Purpose of:: To improve muscle performance and motor function TENS: No Cryotherapy (ice pack, ice massage): Yes Thermo therapy (hot pack): Yes Ultrasound (thermal/non thermal): No Thank you for the opportunity to evaluate your patient. For Medicare and Medicare HMO plans, please review the plan of care and approve it. It will need to be FAXED BACK to us at [phone] for Medicare purposes. For Medicare only, by signing this I certify the plan of care. Please let me know if there are questions or concerns regarding this plan of care. Physician Signature: Date:
--- NOTE | 2022-02-09 13:17 | HP.PTDCSUM_ITS ---
It has been my pleasure to treat ASHLEY MÉNDEZ referred by Dr. Mala Mcgrath MD, with the diagnosis of Weakness for a total of 9 visit(s). Discharge Date: Please see the following information for a summary of their discharge status. Subjective: Patient reports that she is still having all of the issues that she came with but depends on the day. She has days she needs the cane and other days she doesn't. Went to [employer] and she was in tears- then went to [employer] and she had to be pushed around in the w/c due to her back pain- went to another store and was able to walk around after she rested. She other days when she has to take a pain pill. Her back is the most painful with left leg then right leg. She does feel like she has a little more strength. Sees Dr. Wright for pain mgmt-she has images- with multiple findings. LB Pain Intensity (Out of 10): 5 % Improvement: 20 Objective/Function: Posture: FH, RS- can correct with tactile cues but does not maintain and reports pain. Gait: slow chris- forward posture- no AD or SOB. Stairs: non recip can do a flight with 2 HR. HR/TR: able with UE A. SLS: weight shift but reports pain. ROM: Lumbar: Flexion: severe, Extn: severe, SB: mod, Rot: mod all with pain, LE bilateral: WFL. Sensation: WFL to gross touch bilateral LE. Reflex: 2+ to patella bilateral. Strength: Core: fair Hip: left: 4/5, Right: 4/5, Knee: 4+/5, Ankle: 5/5. Flex: HS: severe, Gastroc: mod. Palpation: tender throughout lumbar paraspinals. - Special Tests. L/S Slump test left side: Positive. L/S Slump test right side: Positive. L/S Left Straight Leg Raise: Positive. L/S Right Straight Leg Raise: Positive. R Hip SHAILESH - Intraarticular Pathology: Positive. R Hip FADDIR - Labrum: Positive Goal 1:: Patient will be I with HEP and progression Goal Progress: Goal Met Goal 2:: Patient will maintain proper posture t.o tx session to demo increased core s.s Goal 3:: Patient will ambulate >300 feet with a normalized gait pattern and LRD Goal Progress: Progressing Goal 4:: Patient will asc/desc 8 stairs recip with 1 HR Goal Progress: Progressing Goal 5:: Patient will report 80% improvement Goal Progress: Progressing Plan: 02/09/22: Discharge- return to MD for further evaluation. Re-check with PT next visit. Focus on LE and core s/s- proprioception and functional mobility. HEP Given IE: Supine TA contraction, glut sets, hip add, seated marching, HS stretch, standing marching and HR If there are questions or concerns regarding this patient's physical therapy, please feel free to call me at [phone]. Thank you for the referral of this patient. Sincerely, Fabiola Mitchell, K[facility] Balance/Gait/Functional tests - Balance/Special Test Scores Lower Extremity Functional Score: 20
== END 2022-02-09 13:24 | disposition home or self-care (01) ==
LOC: PT 13:00
PROVIDERS: PCP Internal Medicine; Referring Provider Internal Medicine; Visit Provider Internal Medicine
DX: M62.81 Muscle weakness (generalized) (principal)
CPT/HCPCS: 97110; 97162; 97164

== ENCOUNTER → 2022-03-11 | Outpatient (CLI) | payer MEDICARE, MEDICAID, SELFPAY ==
[2020-11-27 10:47] VITALS: BMI 30.9
--- NOTE | 2022-03-11 14:10 | RAD_ITS ---
HISTORY: FALL. TECHNIQUE: XR Spine Thoracic 2 Views. COMPARISON: None. FINDINGS: VERTEBRAE: Vertebral body heights maintained. No acute fracture identified with limited evaluation of the upper thoracic spine due to overlapping osseous structures. ALIGNMENT: No significant anterior or posterior subluxation. INTERVERTEBRAL DISCS: Mild degenerative endplate changes with osteophytes in the midthoracic spine. SOFT TISSUES: Unremarkable paraspinal soft tissues. Midline sternotomy and coronary artery disease. RAD/Thoracic Spine 2 Views IMPRESSION: No acute fracture or dislocation identified in the thoracic spine. Electronically Signed: Azalea Oliveira MD at 14:45 EST ,
--- NOTE | 2022-03-11 14:15 | RAD_ITS ---
HISTORY: FALL. TECHNIQUE: XR Spine Lumbar 2 or 3 Views. COMPARISON: 11/28/2020. FINDINGS: VERTEBRAE: Vertebral body heights preserved. Small sclerotic focus in the L3 vertebral body which may represent a bone island again seen. Degenerative changes of the posterior elements. ALIGNMENT: No significant anterior or posterior subluxation. Minimal levocurvature. INTERVERTEBRAL DISCS: Degenerative endplate changes with sclerosis and intervertebral disc space narrowing of L5-S1 again seen. SOFT TISSUES: Calcification of the abdominal aorta noted. RAD/Lumbar Spine 2 or 3 Views IMPRESSION: No acute fracture or dislocation identified in the lumbar spine. L5-S1 degenerative change. Electronically Signed: Azalea Oliveira MD at 14:43 EST ,
== END | disposition home or self-care (01) ==
LOC: RAD 14:08
PROVIDERS: PCP Internal Medicine; Referring Provider Anesthesiology Pain Medicine; Visit Provider Anesthesiology Pain Medicine
DX: M51.37 Other intervertebral disc degeneration, lumbosacral region (principal); M47.817 Spondylosis without myelopathy or radiculopathy, lumbosacral region; I25.10 Atherosclerotic heart disease of native coronary artery without angina pectoris
CPT/HCPCS: 72070; 72100

== ENCOUNTER 2022-03-13 20:41 | Observation (INO) | payer MEDICARE, MEDICAID, SELFPAY ==
[2020-11-27 10:47] VITALS: BMI 30.9
[2022-03-13 20:42] VITALS: BP 176/90; PULSE 114; RESP 16; TEMP 36.6; O2SAT 100; BMI 31.3
[2022-03-13] MEDS: 0.9% Normal Saline 1,000 ML 999 ML IV (23:45)
[2022-03-14] VITALS (9 sets, daily range): BP systolic 134–156; BP diastolic 60–88; PULSE 67–94; RESP 16–18; TEMP 36.4–36.6; O2SAT 96–98; BMI 30.4
--- NOTE | 2022-03-14 01:39 | EX.ED.DYSGE1 ---
HPI History of Present Illness Chief Complaint: Abn Labs Detail of Chief Complaint: Sent in by GI because of abnormal labs and needing IV fluids Informant: patient Onset/Context/Timing Onset: Days (Nausea, vomiting and diarrhea starting ) Context: Sudden Onset Timing: Intermittent Quality: Vomiting diarrhea Location: GI Current Severity: Mild Maximum Severity: Severe Worsened by: Nothing specific Relieved by: Nothing Associated Symptoms Associated Symptoms: Lightheadedness, thirst and abnormal renal tests Narrative Narrative: Patient is a 61-year-old woman with history of gastroparesis, type 2 diabetes, monoclonal gammopathy, ileostomy due to ulcerative colitis and atherosclerotic heart disease who presents with nausea and vomiting started . She is only vomited once in the past 12 hours. She is having high output from her ileostomy. She states she is emptying her bag every 1-2 hours. She denies fever, chills night sweats. She denies headache. She denies visual, ocular auditory symptoms. She denies cardiac or respiratory symptoms. She has had decreased urine output. Prior similar symptoms: No Recent Illness/Hospitalization: No PFSH PFS Medical History Acute kidney injury Anemia of chronic renal failure, stage 3 (moderate) Anxiety Arthritis Atherosclerosis of coronary artery bypass graft without angina pectoris Atherosclerotic heart disease of [place] coronary artery without angina pectoris Avascular necrosis of bone of left hip Back pain BiPAP (biphasic positive airway pressure) dependence BMI 31.0-31.9,adult Cardiology follow-up encounter Chronic back pain Chronic diastolic (congestive) heart failure Chronic narcotic use Chronic respiratory failure Chronic respiratory failure Chronic respiratory failure with hypoxia, on home O2 therapy CKD (chronic kidney disease) stage 3, GFR 30-59 ml/min CKD (chronic kidney disease), stage IV COPD (chronic obstructive pulmonary disease) COVID-19 vaccine series completed Depression Depression with anxiety Diabetic gastroparesis Dietary restriction DM2 (diabetes mellitus, type 2) Elevated anti-tissue transglutaminase (tTG) IgA level Encephalopathy Essential (primary) hypertension Fatty liver FCHL (familial combined hyperlipidemia) Flu vaccine need Former smoker Gastric reflux Gastroenteritis High cholesterol High output ileostomy History of COVID-19 History of echocardiogram History of edema History of pain when walking History of renal disease History of stress test Hx of diabetic gastroparesis Hx of psoriasis Hyperlipidemia Hypertension Hypertensive chronic kidney disease with stage 1 through stage 4 chronic kidney disease, or unspecified chronic kidney disease Ileostomy present Increased ammonia level Insulin dependent diabetes mellitus Left hip pain Leg cramps Liver mass Loss of hearing Meniere's disease in remission Menieres disease MGUS (monoclonal gammopathy of unknown significance) Migraine headache Myoclonic jerking Non-alcoholic fatty liver disease Nonalcoholic steatohepatitis Obesity Obstructive sleep apnea Pancreatitis Pancreatitis, acute Preoperative evaluation to rule out surgical contraindication Psoriasis Right flank pain Right thyroid nodule Secondary pulmonary arterial hypertension Short bowel syndrome Shortness of breath on exertion Smoking greater than 20 pack years 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 2 diabetes mellitus Thyroid mass Type 2 diabetes mellitus with diabetic polyneuropathy Ulcerative colitis Ulcerative colitis Walker as ambulation aid Weakness of both hands Weakness of both lower extremities Wears glasses Home Medications aspirin 81 mg tablet,delayed release 81 mg PO DAILY Check with primary doctor 04/08/21 [History Last Taken 04/15/21] clopidogrel 75 mg tablet 75 mg PO DAILY Check with primary doctor 04/22/21 [History Last Taken 04/15/21] metoclopramide HCl 5 mg tablet (Reglan) 5 mg PO DAILY PRN reflux 04/22/21 [History Last Taken Unknown] pantoprazole 40 mg tablet,delayed release 40 mg PO DAILY gerd #90 tabs 05/09/21 [Rx Last Taken Unknown] diphenoxylate-atropine 2.5 mg-0.025 mg tablet (Lomotil) 1 tab PO TID PRN diarrhea #90 tabs 05/19/21 [Rx Last Taken Unknown] atorvastatin 80 mg tablet 80 mg PO QHS CHOLESTEROL LOWERING #90 tabs 08/29/21 [Rx Last Taken Unknown] ursodiol 300 mg capsule 300 mg PO BID Check with primary doctor #180 caps 09/26/21 [Rx Last Taken Unknown] duloxetine 30 mg capsule,delayed release 90 mg PO DAILY Check with primary doctor 10/06/21 [History Last Taken Unknown] mupirocin 2 % topical ointment 1 applic topical BID PRN Rash 10/15/21 [History Last Taken Unknown] vitamin E (dl, acetate) 180 mg (400 unit) capsule 360 mg PO DAILY vitamin 10/15/21 [History Last Taken Unknown] hyoscyamine sulfate 0.125 mg tablet 0.125 mg PO Q6H PRN dyspepsia #60 tabs 11/04/21 [Rx Last Taken Unknown] ondansetron 4 mg disintegrating tablet 4 mg PO Q6H PRN nausea and vomiting #90 tabs 11/04/21 [Rx Last Taken Unknown] Insulin Basal Pump (Pt's Own) [Pump, Basal] 11/15/21 [History Last Taken Unknown] Wheel Chair 11/15/21 [History Last Taken Unknown] betamethasone dipropionate 0.05 % topical cream 1 applic topical DAILY cream 11/15/21 [History Last Taken Unknown] blood sugar diagnostic (True Metrix Glucose Test Strip) 11/15/21 [History Last Taken Unknown] blood-glucose meter,continuous (Dexcom G6 Clinical Program Manager) 11/15/21 [History Last Taken Unknown] blood-glucose sensor (DexCogenics G6 Sensor device) 11/15/21 [History Last Taken Unknown] blood-glucose transmitter (Dexcom G6 Transmitter device) 11/15/21 [History Last Taken Unknown] insulin lispro 200 unit/mL (3 mL) subcutaneous pen (Humalog KwikPen U-200 Insulin) 60 unit subcut TID insulin 11/15/21 [History Last Taken Unknown] metoprolol tartrate 25 mg tablet 75 mg PO BID bp 11/15/21 [History Last Taken Unknown] pen needle, diabetic 32 gauge x 5/32 (BD Ultra-Fine Key Pen Needle) 11/15/21 [History Last Taken Unknown] acetaminophen 325 mg tablet (Tylenol) 650 mg PO Q6H PRN PRN Pain Score 1-10/Temp > 100.7 F #0 tabs 11/18/21 [Rx Last Taken Unknown] buprenorphine 1 patch topical QWEEK ##0 11/18/21 [Rx Last Taken Unknown] buprenorphine 10 mcg/hour weekly transdermal patch 1 patch transdermal Q7D Check with primary doctor 11/18/21 [History Last Taken 11/09/21] loperamide 2 mg capsule (Imodium A-D) 2 mg PO Q6H PRN loose stool #20 caps 11/18/21 [Rx Last Taken Unknown] nitroglycerin 0.4 mg sublingual tablet 0.4 mg sublingual Q5-15M PRN chest pain #25 tabs 11/20/21 [Rx Last Taken Unknown] isosorbide dinitrate 30 mg tablet 30 mg PO BID heart #60 tabs 01/16/22 [Rx Last Taken Unknown] pregabalin 75 mg capsule 75 mg PO BID pain #60 caps 01/16/22 [Rx Last Taken Unknown] dapagliflozin 10 mg tablet (Farxiga) 10 mg PO DAILY #30 tabs 01/28/22 [Rx Last Taken Unknown] clonidine 0.2 mg/24 hr weekly transdermal patch 1 patch transdermal QWEEK #4 ea 01/30/22 [Rx Last Taken Unknown] insulin pump cart,automated,BT (Omnipod 5 G6 Pods (Gen 5) subcutaneous cartridge) #45 ea 02/09/22 [Rx Last Taken Unknown] ostomy supplies #1 ea 02/13/22 [Rx Last Taken Unknown] dicyclomine 10 mg capsule 20 mg PO TID PRN abdominal cramp 03/14/22 [History Last Taken Unknown] trazodone 50 mg tablet 50 mg PO QHS sleep 03/14/22 [History Last Taken Unknown] Allergy/AdvReac Type Severity Reaction Status Date / Time aripiprazole [From Abilify] Allergy Intermediate hallucinati Verified 03/13/22 20:44 ons ciprofloxacin Allergy Intermediate Swelling Verified 03/13/22 20:44 cinnamon [Cinnamon] Allergy Anaphylaxis Verified 03/13/22 20:44 Influenza Virus Vaccines Allergy Shortness Verified 03/13/22 20:44 of breath liraglutide [From Victoza] Allergy Anaphylaxis Verified 03/13/22 20:44 metronidazole [From Flagyl] Allergy Hives Verified 03/13/22 20:44 Metronidazole HCl Allergy Hives Verified 03/13/22 20:44 [From Flagyl] Penicillins Allergy Hives Verified 03/13/22 20:44 Sulfa (Sulfonamide Allergy Hives Verified 03/13/22 20:44 Antibiotics) codeine AdvReac Stops Verified 03/13/22 20:44 Ileostomy metformin HCl AdvReac Nausea Verified 03/13/22 20:44 [From Glucophage] ranolazine AdvReac Nausea/Vom/ Verified 03/13/22 20:44 Diarrhea [id number] Reductase AdvReac Nausea/joints Verified 03/13/22 20:44 Inhibitor ache [Frbfaas-Ffr-Qgt Reductase Inhibitor] Family History Mother CVA (cerebral vascular accident) Diabetes Brother Heart disease of CAD at 65 Myocardial infarction Pancreatitis Father Cancer lymphomia Lymphoma Grandmother Myocardial infarction of [place] in her 70s Sister COPD (chronic obstructive pulmonary disease) Surgical History H/O colectomy H/O coronary artery bypass surgery (05/18/12) H/O sinus surgery H/O total hysterectomy history closed fissure History of History of cardiac catheterization History of cholecystectomy History of coronary artery stent placement (01/12/18) ileostomy Ileostomy status left thumb surgery Status post total hip replacement, left Social History household members: none Smoking Status: Former smoker quit date: 03/08/12 how long ago did patient quit smoking: quit in 2012; 0.5-1ppd x 30yrs alcohol intake: never substance use type: does not use diet: diabetic caffeine: No eating out: 1-3 times/week what type of physical activity do you participate in: none seatbelt use: always do you feel safe at home: Yes ROS ROS ED Constitutional Constitutional ED: Denies chills, fever(s), subjective or sweats Eyes Eyes: Denies blurry vision, change in vision or diplopia ENT ENT ED: Denies ear pain, rhinorrhea or sore throat Cardiovascular Cardiovascular: Denies chest pain, palpitations or racing heartbeat Respiratory/Chest Respiratory/Chest: Denies cough, dyspnea or dyspnea on exertion Gastrointestinal Gastrointestinal: Reports abdominal pain, diarrhea, nausea and vomiting; Denies melena Genitourinary Genitourinary ED: Reports other Details: Decreased urine output ; Denies dysuria, hematuria or urinary frequency Musculoskeletal Musculoskeletal: Denies arthralgias, back pain or myalgias Integumentary Denies abscess or Abrasions Neurologic Neurologic: Reports weakness; Denies headache(s) or paresthesias Psychiatric Psychiatric: Denies anxiety or depression Hematologic/Lymphatic Hematologic/Lymphatic: Denies anemia, easy bleeding or easy bruising EXAM Physical Exam Const Vital Signs: 03/13/22 20:42 03/14/22 01:42 03/14/22 02:38 Temperature 97.8 F Temperature Source Temporal Pulse Rate 114 H 93 Respiratory Rate 16 18 Respiratory Effort Normal Non-Labored Blood Pressure 176/90 H 143/88 H Blood Pressure Mean 118 106 Pulse Ox 100 98 Oxygen Delivery Method Room Air Room Air Positive well nourished, well developed and obese General Appearance ED: well developed, NAD and pallor; Negative for cyanotic or diaphoretic Nutritional Appearance: obese HEENT Reports dry mucous membranes HEENT Narrative: Head is atraumatic normocephalic. Ears normal. Nares patent. Uvula midline. No deviation of protrusion. Mouth ED: Yes dry mucous membranes Mouth: dry mucous membranes Eyes PERRL and EOMs intact bilaterally General Eye ED: Negative for pale conjunctiva or scleral icterus Neck no lymphadenopathy, supple and no JVD Chest Wall inspection of chest normal and palpation of chest normal Resp normal respiratory effort and clear to auscultation bilaterally Cardio regular rate, regular rhythm, S1 normal heart sound, S2 normal heart sound and no murmurs GI Negative for hepatosplenomegaly GI Narrative: Abdomen slightly tympanitic. Bowel sounds are increased. There is gas and stool in her ileostomy bag. There is minimal tenderness. There is no guarding rebound tenderness noted. Back/Spine no CVA tenderness Extremity normal to inspection General Extremety ED: Negative for edema or tenderness General Extremity: Negative for edema Neuro oriented x3, CN's II-XII intact bilaterally and no sensory deficits noted Sensorium / Orientation: alert Skin no rashes or lesions noted and no wounds General Skin Exam: pallor; Negative for elasticity normal or jaundice MDM MDM MDM Narrative Medical decision making narrative: Blood work was performed prior to arrival. She has rising BUN and creatinine compared to baseline. Patient clinically is dehydrated. Since patient has high output from her ileostomy bag and unable to keep up with p.o. intake and vomiting will start hydration. And will discuss case with hospitalist for observation for admission. Lab Data Lab results narrative: BUN/creatinine on February 05 was 27 and 1.84 with a GFR of 29. Today BUN and creatinine are 45 and 3.38. Glucose is 206 with a normal CO2 and anion gap. White count is slightly elevated at 13.8. This is nondiagnostic. Discharge Plan Dx/Rx/DC Orders Clinical Impression: Acute renal failure superimposed on stage 3a chronic kidney disease, High output ileostomy, Atherosclerosis of coronary artery bypass graft without angina pectoris, Abdominal pain, vomiting, and diarrhea, Acute dehydration, Hyperglycemia due to type 2 diabetes mellitus, Leukocytosis Disposition Disposition: Acute Care Hospital [facility] Discharge Date/Time: 03/14/22 04:38
[2022-03-14] MEDS: 0.9% Normal Saline 1,000 ML 250 ML IV (02:41)
--- NOTE | 2022-03-14 03:56 | PCM.HP.STD ---
[facility] - General General Date of Admission: 03/14/22 Date of Service: 03/14/22 Chief Complaint: Diarrhea. [facility] Narrative ASHLEY MÉNDEZ, is a 61 F with a significant history of ulcerative colitis status post ileostomy about 30 years ago; short gut syndrome; gastroparesis; and diabetes mellitus; who presents to the emergency department with progressively worsening watery stools from her ileostomy. Associated with her symptoms is nausea and vomiting. At the time of her presentation her vomiting had stopped and she was dry heaving. Also she has had a decreased urine output. Patient went to her quotation clerk. Labs were done and patient was noted to be in RALPH. Patient was sent to the emergency department for further evaluation and treatment. [facility] Medical History Acute kidney injury Anemia of chronic renal failure, stage 3 (moderate) Anxiety Arthritis Atherosclerosis of coronary artery bypass graft without angina pectoris Atherosclerotic heart disease of [place] coronary artery without angina pectoris Avascular necrosis of bone of left hip Back pain BiPAP (biphasic positive airway pressure) dependence BMI 31.0-31.9,adult Cardiology follow-up encounter Chronic back pain Chronic diastolic (congestive) heart failure Chronic narcotic use Chronic respiratory failure Chronic respiratory failure Chronic respiratory failure with hypoxia, on home O2 therapy CKD (chronic kidney disease) stage 3, GFR 30-59 ml/min CKD (chronic kidney disease), stage IV COPD (chronic obstructive pulmonary disease) COVID-19 vaccine series completed Depression Depression with anxiety Diabetic gastroparesis Dietary restriction DM2 (diabetes mellitus, type 2) Elevated anti-tissue transglutaminase (tTG) IgA level Encephalopathy Essential (primary) hypertension Fatty liver FCHL (familial combined hyperlipidemia) Flu vaccine need Former smoker Gastric reflux Gastroenteritis High cholesterol High output ileostomy History of COVID-19 History of echocardiogram History of edema History of pain when walking History of renal disease History of stress test Hx of diabetic gastroparesis Hx of psoriasis Hyperlipidemia Hypertension Hypertensive chronic kidney disease with stage 1 through stage 4 chronic kidney disease, or unspecified chronic kidney disease Ileostomy present Increased ammonia level Insulin dependent diabetes mellitus Left hip pain Leg cramps Liver mass Loss of hearing Meniere's disease in remission Menieres disease MGUS (monoclonal gammopathy of unknown significance) Migraine headache Myoclonic jerking Non-alcoholic fatty liver disease Nonalcoholic steatohepatitis Obesity Obstructive sleep apnea Pancreatitis Pancreatitis, acute Preoperative evaluation to rule out surgical contraindication Psoriasis Right flank pain Right thyroid nodule Secondary pulmonary arterial hypertension Short bowel syndrome Shortness of breath on exertion Smoking greater than 20 pack years 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 2 diabetes mellitus Thyroid mass Type 2 diabetes mellitus with diabetic polyneuropathy Ulcerative colitis Ulcerative colitis Walker as ambulation aid Weakness of both hands Weakness of both lower extremities Wears glasses Home Medications aspirin 81 mg tablet,delayed release 81 mg PO DAILY Check with primary doctor 04/08/21 [History Last Taken 04/15/21] clopidogrel 75 mg tablet 75 mg PO DAILY Check with primary doctor 04/22/21 [History Last Taken 04/15/21] metoclopramide HCl 5 mg tablet (Reglan) 5 mg PO DAILY PRN reflux 04/22/21 [History Last Taken Unknown] pantoprazole 40 mg tablet,delayed release 40 mg PO DAILY gerd #90 tabs 05/09/21 [Rx Last Taken Unknown] diphenoxylate-atropine 2.5 mg-0.025 mg tablet (Lomotil) 1 tab PO TID PRN diarrhea #90 tabs 05/19/21 [Rx Last Taken Unknown] atorvastatin 80 mg tablet 80 mg PO QHS CHOLESTEROL LOWERING #90 tabs 08/29/21 [Rx Last Taken Unknown] ursodiol 300 mg capsule 300 mg PO BID Check with primary doctor #180 caps 09/26/21 [Rx Last Taken Unknown] duloxetine 30 mg capsule,delayed release 90 mg PO DAILY Check with primary doctor 10/06/21 [History Last Taken Unknown] vitamin E (dl, acetate) 180 mg (400 unit) capsule 360 mg PO DAILY vitamin 10/15/21 [History Last Taken Unknown] hyoscyamine sulfate 0.125 mg tablet 0.125 mg PO Q6H PRN dyspepsia #60 tabs 11/04/21 [Rx Last Taken Unknown] ondansetron 4 mg disintegrating tablet 4 mg PO Q6H PRN nausea and vomiting #90 tabs 11/04/21 [Rx Last Taken Unknown] Insulin Basal Pump (Pt's Own) [Pump, Basal] 11/15/21 [History Last Taken Unknown] Wheel Chair 11/15/21 [History Last Taken Unknown] betamethasone dipropionate 0.05 % topical cream 1 applic topical DAILY cream 11/15/21 [History Last Taken 03/13/22] blood sugar diagnostic (True Metrix Glucose Test Strip) 11/15/21 [History Last Taken Unknown] blood-glucose meter,continuous (Dexcom G6 Pelt Inspector) 11/15/21 [History Last Taken Unknown] blood-glucose sensor (Dexcom G6 Sensor device) 11/15/21 [History Last Taken Unknown] blood-glucose transmitter (Dexcom G6 Transmitter device) 11/15/21 [History Last Taken Unknown] insulin lispro 200 unit/mL (3 mL) subcutaneous pen (Humalog KwikPen U-200 Insulin) 60 unit subcut TID insulin 11/15/21 [History Last Taken Unknown] metoprolol tartrate 25 mg tablet 75 mg PO BID bp 11/15/21 [History Last Taken Unknown] pen needle, diabetic 32 gauge x 5/32 (BD Ultra-Fine Key Pen Needle) 11/15/21 [History Last Taken Unknown] acetaminophen 325 mg tablet (Tylenol) 650 mg PO Q6H PRN PRN Pain Score 1-10/Temp > 100.7 F #0 tabs 11/18/21 [Rx Last Taken Unknown] buprenorphine 10 mcg/hour weekly transdermal patch 1 patch transdermal Q7D Check with primary doctor 11/18/21 [History Last Taken 11/09/21] loperamide 2 mg capsule (Imodium A-D) 2 mg PO Q6H PRN loose stool #20 caps 11/18/21 [Rx Last Taken Unknown] nitroglycerin 0.4 mg sublingual tablet 0.4 mg sublingual Q5-15M PRN chest pain #25 tabs 11/20/21 [Rx Last Taken Unknown] isosorbide dinitrate 30 mg tablet 30 mg PO BID heart #60 tabs 01/16/22 [Rx Last Taken Unknown] pregabalin 75 mg capsule 75 mg PO BID pain #60 caps 01/16/22 [Rx Last Taken Unknown] insulin pump cart,automated,BT (Omnipod 5 G6 Pods (Gen 5) subcutaneous cartridge) #45 ea 02/09/22 [Rx Last Taken Unknown] ostomy supplies #1 ea 02/13/22 [Rx Last Taken Unknown] buprenorphine 1 patch topical QWEEK pain 03/14/22 [History Last Taken 03/11/22] dapagliflozin 10 mg tablet (Farxiga) 10 mg PO DAILY dm 03/14/22 [History Last Taken 03/13/22] dicyclomine 10 mg capsule 20 mg PO TID PRN abdominal cramp 03/14/22 [History Last Taken Unknown] trazodone 50 mg tablet 50 mg PO QHS sleep 03/14/22 [History Last Taken Unknown] Allergy/AdvReac Type Severity Reaction Status Date / Time aripiprazole [From Abilify] Allergy Intermediate hallucinati Verified 03/13/22 20:44 ons ciprofloxacin Allergy Intermediate Swelling Verified 03/13/22 20:44 cinnamon [Cinnamon] Allergy Anaphylaxis Verified 03/13/22 20:44 Influenza Virus Vaccines Allergy Shortness Verified 03/13/22 20:44 of breath liraglutide [From Victoza] Allergy Anaphylaxis Verified 03/13/22 20:44 metronidazole [From Flagyl] Allergy Hives Verified 03/13/22 20:44 Metronidazole HCl Allergy Hives Verified 03/13/22 20:44 [From Flagyl] Penicillins Allergy Hives Verified 03/13/22 20:44 Sulfa (Sulfonamide Allergy Hives Verified 03/13/22 20:44 Antibiotics) codeine AdvReac Stops Verified 03/13/22 20:44 Ileostomy metformin HCl AdvReac Nausea Verified 03/13/22 20:44 [From Glucophage] ranolazine AdvReac Nausea/Vom/ Verified 03/13/22 20:44 Diarrhea Reueear-YJS-[id number] Reductase AdvReac Nausea/joints Verified 03/13/22 20:44 Inhibitor ache [Jaivgxg-Tdd-Scb Reductase Inhibitor] Family History Mother CVA (cerebral vascular accident) Diabetes Brother Heart disease of CAD at 65 Myocardial infarction Pancreatitis Father Cancer lymphomia Lymphoma Grandmother Myocardial infarction of [place] in her 70s Sister COPD (chronic obstructive pulmonary disease) Surgical History H/O colectomy H/O coronary artery bypass surgery (05/18/12) H/O sinus surgery H/O total hysterectomy history closed fissure History of History of cardiac catheterization History of cholecystectomy History of coronary artery stent placement (01/12/18) ileostomy Ileostomy status left thumb surgery Status post total hip replacement, left Social History household members: none Smoking Status: Former smoker quit date: 03/08/12 how long ago did patient quit smoking: quit in 2013; 0.5-1ppd x 30yrs alcohol intake: never substance use type: does not use diet: diabetic caffeine: No eating out: 1-3 times/week what type of physical activity do you participate in: none seatbelt use: always do you feel safe at home: Yes ROS ROS Narrative Pertinent positives and pertinent negatives as noted in HPI. All other systems were reviewed and are negative Vital Signs Vital Signs Vital Signs: 03/13/22 20:42 03/14/22 01:42 03/14/22 02:38 Temperature 97.8 F Temperature Source Temporal Pulse Rate 114 H 93 Respiratory Rate 16 18 Respiratory Effort Normal Non-Labored Blood Pressure 176/90 H 143/88 H Blood Pressure Mean 118 106 Pulse Ox 100 98 Oxygen Delivery Method Room Air Room Air Weight Weight: 90.718 kg Body Mass Index (BMI) 31.3 Physical Exam Narrative Physical exam: General: Well-nourished, well-developed. Head: Normocephalic, atraumatic, no tenderness Eyes: Vision is grossly intact. EOMI ENT, no trauma, moist mucous membranes, no rhinorrhea Neck: Nontender, No thyromegaly. CVS: Regular rate and rhythm. S1-S2 present. No murmur, gallop or rub. Respiratory : clear to auscultation bilaterally, chest wall nontender, no wheezing Abdomen: Ileostomy bag in place. Soft, nontender, nondistended, no bowel sounds auscultated., no masses : Deferred Back: Nontender, no CVA tenderness, no midline spinal tenderness, deformities, step-offs Extremities: Nontender full range of motion, no trauma Skin: Normal color, no trauma, abrasions Neuro: Alert, oriented, cranial nerves II through XII grossly intact. Psychiatry: Normal mood. Normal affect. Not depressed. Not anxious. Assessment & Plan Assessment/Plan (1) RALPH (acute kidney injury): (2) Acute kidney injury superimposed on CKD: PLAN: Plan RALPH on CKD stage IIIa/likely ATN/dehydration. Creatinine of 3.38. Baseline creatinine of around 1.8. BUN of 45 while a BUN on 02/05/2022 was 1.84. On presentation BUN over creatinine creatinine was 13.3. 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 Likely secondary to high output from ileostomy. IV hydration ordered. Trend BMP. Avoid nephrotoxic's. Noted to have hypercalcemia with calcium of 10.4. Trend. Chronic pain Stable Buprenorphine patch continued. De-escalate pregabalin dose secondary to RALPH. Diabetes mellitus Blood glucose now within goal. Patient on clear liquid diets. Hold home prandial insulin. Accu-Chek with correction scale insulin ordered.. Hypertension Blood pressure is not within goal Home blood pressure medication continued. As needed hydralazine ordered. Trend blood pressure and adjust blood pressure medications. DVT prophylaxis Subcutaneous heparin ordered. Charges/Coding Visit Charges Inpatient E&M: 45236 Init Hosp L3
[2022-03-14] MEDS: Ondansetron 4 MG/2 ML Vial IV (05:22)
[2022-03-14] MEDS: 0.9% Normal Saline 1,000 ML 100 ML IV ×2 (05:22→17:56)
[2022-03-14] MEDS: Heparin Injection (Vial) 5,000 UNIT/ML VIAL 5000 UNIT SC ×3 (05:22→21:40)
[2022-03-14 06:30] LABS: Bedside Glucose 129 mg/dL (74-106)
[2022-03-14 06:58] LABS: Absolute Lymphocyte Count 3.72 X10^3/uL (0.83-4.51); Absolute Neutrophil Count 5.6 X10^3/uL (2.0-7.7); Basophil# 0.05 X10^3/uL; Basophil% 0.5 % (0-1); Eosinophil# 0.61 X10^3/uL; Eosinophils% 5.7 % (0-5); Hematocrit 42.2 % (37-47); Hemoglobin 13.4 g/dL (12.0-15.0); Lymphocyte # 3.72 X10^3/ul (0.83-4.51); Lymphocyte % 34.6 % (19-41); Mean Corp Hgb Conc 31.8 g/dL (32-36); Mean Corpuscular Hgb 27.4 pg (27.0-32.0); Mean Corpuscular Volume 86.3 fL (81-99); Mean Platelet Vol. 12.2 fl (6.2-12.0); Monocyte# 0.73 X10^3/uL; Monocyte% 6.8 % (0-10); NRBC Flagged by Analyzer 0 % (0-5); Neutrophil # 5.58 X10^3/uL (2.7-7.7); Neutrophil % 51.7 % (47-70); Platelet Count 182 K/mm3 (150-450); RBC Distribution Width CV 15.2 % (11.6-14.6); RBC Distribution Width SD 47.5 fl (35.1-43.9); Red Blood Count 4.89 M/mm3 (4.2-5.4); White Blood Count 10.8 K/mm3 (4.4-11.0)
[2022-03-14 07:18] LABS: Anion Gap 4 (5-15); BUN 49 mg/dL (7-18); BUN/Creat Ratio 17.5 RATIO (10-20); Calcium,Total 8.8 mg/dL (8.5-10.1); Chloride 115 mmol/L (98-107); EST Glomerular Filtration Rate 18 mL/min (>60); Est Glom Filt Rate - Afr Amer 22 mL/min (>60); Glucose 122 mg/dL (74-106); Potassium 4.4 mmol/L (3.5-5.1); Sodium Level 137 mmol/L (136-145)
--- NOTE | 2022-03-14 07:52 | PN.HOSP_ITS ---
Subjective Subjective Output improved but now she feels that it is too thick. Objective Data Objective Data Vital Signs: Vital Signs Temp Pulse Resp BP Pulse Ox O2 Del Method 36.6 C 88 18 156/69 H 97 Room Air 03/14/22 05:00 03/14/22 05:00 03/14/22 05:00 03/14/22 05:00 03/14/22 05:00 03/14/22 05:00 Oxygen Delivery Method Room Air Weight: 88.3 kg Body Mass Index (BMI) 30.4 Intake & Output: Intake and Output for Last 24 Hours 03/12/22 03/13/22 03/14/22 23:59 23:59 23:59 Intake Total 1901.67 / 1901.67 Balance 1901.67 / 1901.67 Lab / Micro Data Result Diagrams: 03/14/22 06:50 03/14/22 06:50 Labs: Laboratory Results - last 24 hr 03/14/22 06:11: POC Glucose 129 H 03/14/22 06:50: Sodium 137, Potassium 4.4, Chloride 115 H, Carbon Dioxide 18.0 L , Anion Gap 4 L, BUN 49 H, Creatinine 2.80 H, Estim Creat Clear Calc 20.00, Est GFR (MDRD) Af Amer 22 L, Est GFR (MDRD) Non-Af 18 L, BUN/Creatinine Ratio 17.5, Glucose 122 H, Calcium 8.8 03/14/22 06:50: WBC 10.8, RBC 4.89, Hgb 13.4, Hct 42.2, MCV 86.3, MCH 27.4, MCHC 31.8 L, RDW Std Deviation 47.5 H, RDW Coeff of Jan 15.2 H, Plt Count 182, MPV 12.2 H, Immature Gran % (Auto) 0.700, Neut % (Auto) 51.7, Lymph % (Auto) 34.6, [place] % (Auto) 6.8, Eos % (Auto) 5.7 H, Baso % (Auto) 0.5, Absolute Neuts (auto) 5.6, Absolute Lymphs (auto) 3.72, Nucleated RBC % 0 Physical Exam Const alert and no apparent distress Neck no lymphadenopathy Resp normal respiratory effort, no retractions, no use of accessory muscles and clear to auscultation bilaterally Cardio regular rate, regular rhythm, S1 normal heart sound and S2 normal heart sound GI normal to inspection, nondistended, normoactive bowel sounds Extremity normal to inspection Assessment & Plan Assessment/Plan (1) RALPH (acute kidney injury): PLAN: RALPH on CKD stage IIIa/likely ATN/dehydration. Creatinine of 3.38. Baseline creatinine of around 1.8. BUN of 45 while a BUN on 02/05/2022 was 1.84. On presentation BUN over creatinine creatinine was 13.3. 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 Likely secondary to high output from ileostomy. IV hydration ordered. Trend BMP. Avoid nephrotoxic's. Improving with IV fluids but still elevated (2) Hypercalcemia: PLAN: Likely due to volume contraction. Improved today at 8.8. (3) High output ileostomy: PLAN: Chronic Had just seen gastroenterology with Dr. Andino yesterday. Consult GI. Continue Lomotil Today improved though the patient is endorsing that may be a little bit too thick. Continue with the current management. Will hold off any octreotide drip at this time. PLAN: Plan Chronic pain Stable Buprenorphine patch continued. De-escalate pregabalin dose secondary to RALPH. Diabetes mellitus Blood glucose now within goal. Patient on clear liquid diets. Continue with the patient's insulin pump. Hypertension Blood pressure is not within goal Home blood pressure medication continued. As needed hydralazine ordered. Trend blood pressure and adjust blood pressure medications. DVT prophylaxis Subcutaneous heparin ordered. Charges/Coding Visit Charges Inpatient E&M: 42704 Subs Hosp L2
[2022-03-14] MEDS: Ursodiol 250 MG Tablet PO ×2 (09:17→17:35)
[2022-03-14] MEDS: DULoxetine Hcl 30 MG Capsule 90 MG PO (09:17)
[2022-03-14] MEDS: Aspirin E.C. 81 MG Tablet PO (09:17)
[2022-03-14] MEDS: Clopidogrel Bisulfate 75 MG Tablet PO (09:18)
[2022-03-14] MEDS: Isosorbide DN 30 MG Tablet PO ×2 (09:18→21:44)
[2022-03-14] MEDS: Metoprolol Tartrate 25 MG Tablet 75 MG PO ×2 (09:18→21:43)
[2022-03-14] MEDS: Pantoprazole Sodium 40 MG Tablet PO (09:19)
[2022-03-14] MEDS: Triamcinolone 0.5% Cream 1 APPLIC TOPICAL (09:19)
[2022-03-14] MEDS: Ensure Clear 120 ML Liquid PO ×4 (09:24→21:43)
[2022-03-14] MEDS: Pregabalin 50 MG Capsule PO ×2 (10:23→21:40)
[2022-03-14 11:50] LABS: Bedside Glucose 220 mg/dL (74-106)
--- NOTE | 2022-03-14 15:08 | NURSING ---
1113-blood glucose-220, insulin pump in use per patient. Okay to use dexcom glucose monitor and omnipod insulin pump per Dr. Chandler. pt. received 1.6 units/bolus via omnipod for coverage at that time- pt receives 5 units/hour as well- per pt. report.
--- NOTE | 2022-03-14 15:25 | CASEMGMT ---
SVETLANA RAINEY Assessment: Face to Face with pt for initial transition planning/care coordination assessment. RN REDD introduced self and role at [facility], pt voices understanding and consents to assessment. Pt is A/O x4 and answers all questions appropriately at this time. Pt lying in bed in no distress. Care providers, pharmacy, and demographics verified/updated. Admitting Dx: RALPH, high output ileostomy PCP:Alcides Specialists:Lynsey, cardio; Keven, pulm; Friend, GI; Jacky, nephrol; Esdras, endo; Basali, pain mgmt [facility]erred [facility]acy: [facility] Insurance: Breanna AQUINO Prescription Benefit: yes LNOK: Azucena Adair, life partner Living Arrangements: Pt lives alone in an apartment complex on the first floor with no steps to enter. Pt reports she is I in ADL's and denies concerns at home. Transportation: Pt drives self and denies concerns with transportation. DME/HHC/SNF: Pt has a FWW and cane at home but does not use. She also has an Omnipod that doses 5 units per hour and boluses when she puts her carbs in at meals. Pt states she was approved for passport but is on a waiting list for aides. Pt has had HHC in the past but cannot recall the name. Pt denies SNF stays. Pt states no concerns with going home at time of dc. Pt up I in room and halls. Pt states no further concerns/needs. CM to follow. Advised pt to ask CM if any further question/concerns/needs arise, voices understanding. Pt Goal: Home Plan: Home
--- NOTE | 2022-03-14 17:36 | NURSING ---
Patient Dexcom glucometer reading-165, Omnipod insulin pump administered 12.7 units based off dinner carbs after dinner.
[2022-03-14] MEDS: Atorvastatin Calcium 80 MG Tablet PO (21:43)
[2022-03-15 03:05] VITALS: BP 120/57; PULSE 75; RESP 18; TEMP 36.7; O2SAT 97
[2022-03-15] MEDS: 0.9% Normal Saline 1,000 ML 100 ML IV (03:48)
[2022-03-15 05:17] LABS: Absolute Lymphocyte Count 2.34 X10^3/uL (0.83-4.51); Absolute Neutrophil Count 3.5 X10^3/uL (2.0-7.7); Basophil# 0.04 X10^3/uL; Basophil% 0.6 % (0-1); Eosinophil# 0.46 X10^3/uL; Eosinophils% 6.8 % (0-5); Hematocrit 37.4 % (37-47); Hemoglobin 11.7 g/dL (12.0-15.0); Lymphocyte # 2.34 X10^3/ul (0.83-4.51); Lymphocyte % 34.4 % (19-41); Mean Corp Hgb Conc 31.3 g/dL (32-36); Mean Corpuscular Hgb 27.1 pg (27.0-32.0); Mean Corpuscular Volume 86.6 fL (81-99); Mean Platelet Vol. 11.9 fl (6.2-12.0); Monocyte# 0.38 X10^3/uL; Monocyte% 5.6 % (0-10); NRBC Flagged by Analyzer 0 % (0-5); Neutrophil # 3.51 X10^3/uL (2.7-7.7); Neutrophil % 51.6 % (47-70); Platelet Count 173 K/mm3 (150-450); RBC Distribution Width CV 15.5 % (11.6-14.6); Red Blood Count 4.32 M/mm3 (4.2-5.4); White Blood Count 6.8 K/mm3 (4.4-11.0)
[2022-03-15 06:23] LABS: Anion Gap 6 (5-15); BUN 39 mg/dL (7-18); BUN/Creat Ratio 17.5 RATIO (10-20); Calcium,Total 8.4 mg/dL (8.5-10.1); Chloride 116 mmol/L (98-107); Creatinine, Serum 2.23 mg/dL (0.55-1.02); EST Glomerular Filtration Rate 24 mL/min (>60); Est Glom Filt Rate - Afr Amer 29 mL/min (>60); Estimated Creatinine Clearance 25.11 ml/min; Glucose 143 mg/dL (74-106); Potassium 4.8 mmol/L (3.5-5.1); Sodium Level 141 mmol/L (136-145)
[2022-03-15] MEDS: Heparin Injection (Vial) 5,000 UNIT/ML VIAL 5000 UNIT SC (06:31)
--- NOTE | 2022-03-15 08:28 | PN.HOSP_ITS ---
Subjective Subjective Feeling better. Tolerating PO. Objective Data Objective Data Vital Signs: Vital Signs Temp Pulse Resp BP Pulse Ox O2 Del Method 36.7 C 75 18 120/57 L 97 Room Air 03/15/22 03:05 03/15/22 03:05 03/15/22 03:05 03/15/22 03:05 03/15/22 03:05 03/15/22 03:05 Oxygen Delivery Method Room Air Weight: 88.3 kg Body Mass Index (BMI) 30.4 Intake & Output: Intake and Output for Last 24 Hours 03/13/22 03/14/22 03/15/22 23:59 23:59 23:59 Intake Total 3011.67 / 3011.67 986.67 / 986.67 Output Total 350 / 350 Balance 2661.67 / 2661.67 986.67 / 986.67 Lab / Micro Data Result Diagrams: 03/15/22 05:07 03/15/22 05:07 Labs: Laboratory Results - last 24 hr 03/14/22 11:13: POC Glucose 220 H 03/15/22 05:07: WBC 6.8, RBC 4.32, Hgb 11.7 L, Hct 37.4, MCV 86.6, MCH 27.1, MCHC 31.3 L, RDW Std Deviation 49.0 H, RDW Coeff of Jan 15.5 H, Plt Count 173, MPV 11.9, Immature Gran % (Auto) 1.000 H, Neut % (Auto) 51.6, Lymph % (Auto) 34.4, [place] % (Auto) 5.6, Eos % (Auto) 6.8 H, Baso % (Auto) 0.6, Absolute Neuts (auto) 3.5, Absolute Lymphs (auto) 2.34, Nucleated RBC % 0 03/15/22 05:07: Sodium 141, Potassium 4.8, Chloride 116 H, Carbon Dioxide 19.0 L , Anion Gap 6, BUN 39 H, Creatinine 2.23 H, Estim Creat Clear Calc 25.11, Est GFR (MDRD) Af Amer 29 L, Est GFR (MDRD) Non-Af 24 L, BUN/Creatinine Ratio 17.5, Glucose 143 H, Calcium 8.4 L Physical Exam Const alert and no apparent distress Resp normal respiratory effort, no retractions and no use of accessory muscles Cardio regular rate, regular rhythm, S1 normal heart sound and S2 normal heart sound GI normal to inspection, nondistended, normoactive bowel sounds Assessment & Plan Assessment/Plan (1) RALPH (acute kidney injury): PLAN: RALPH on CKD stage IIIa/likely ATN/dehydration. Creatinine of 3.38. Baseline creatinine of around 1.8. BUN of 45 while a BUN on 02/05/2022 was 1.84. On presentation BUN over creatinine creatinine was 13.3. 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 Likely secondary to high output from ileostomy. IV hydration ordered. Trend BMP. Avoid nephrotoxic's. Improving with IV fluids but still elevated Per GI:PPI BID, 5 mg Lomotil QID, 8 mg Imodium QID, Metamucil TID, cholestyramine BID, oxycodone PRN. (2) Hypercalcemia: PLAN: Resolved likely due to volume contraction. (3) High output ileostomy: PLAN: Chronic Had just seen gastroenterology with Dr. Andino yesterday. Consult GI. Continue Lomotil Today improved though the patient is endorsing that may be a little bit too thick. Continue with the current management. Will hold off any octreotide drip at this time. PLAN: Plan Chronic pain Stable Buprenorphine patch continued. De-escalate pregabalin dose secondary to RALPH. Diabetes mellitus Blood glucose now within goal. Patient on clear liquid diets. Continue with the patient's insulin pump. Hypertension Blood pressure is not within goal Home blood pressure medication continued. As needed hydralazine ordered. Trend blood pressure and adjust blood pressure medications. DVT prophylaxis Subcutaneous heparin ordered.
[2022-03-15] MEDS: Aspirin E.C. 81 MG Tablet PO (08:39)
[2022-03-15] MEDS: DULoxetine Hcl 30 MG Capsule 90 MG PO (08:40)
[2022-03-15] MEDS: Ursodiol 250 MG Tablet PO (08:40)
[2022-03-15 08:41] VITALS: PULSE 74
[2022-03-15] MEDS: Clopidogrel Bisulfate 75 MG Tablet PO (08:41)
[2022-03-15] MEDS: Metoprolol Tartrate 25 MG Tablet 75 MG PO (08:41)
[2022-03-15] MEDS: Pantoprazole Sodium 40 MG Tablet PO (08:41)
[2022-03-15] MEDS: Isosorbide DN 30 MG Tablet PO (08:41)
[2022-03-15] MEDS: Triamcinolone 0.5% Cream 1 APPLIC TOPICAL (08:42)
[2022-03-15] MEDS: Pregabalin 50 MG Capsule PO (08:47)
[2022-03-15] MEDS: Ensure Clear 120 ML Liquid PO (08:51)
[2022-03-15 09:00] VITALS: BP 152/89; PULSE 74; RESP 16; TEMP 36.6; O2SAT 97
[2022-03-15 10:06] VITALS: O2SAT 97
--- NOTE | 2022-03-15 12:17 | CON.PCM.GI_ITS ---
HPI Consult Data Date of Consult: 03/15/22 HPI Narrative Reason for Consultation: Dehydration HPI Narrative: ASHLEY MÉNDEZ, is a 61 F who presented to the ED after being seen in office for dehydration and weakness and her labs show a significant increase in her BUN and creatinine ratio. She has a history of gastroparesis, type 2 diabetes, monoclonal gammopathy, ileostomy due to ulcerative colitis and atherosclerotic heart disease who presents with nausea and vomiting started . ? She is only vomited once in the past 12 hours.? She is having high output from her ileostomy.? She states she is emptying her bag every 1-2 hours.? She denies fever, chills night sweats.? She denies headache.? She denies visual, ocular auditory symptoms.? She denies cardiac or respiratory symptoms.? She has had decreased urine output. [facility] Medical History Acute kidney injury Anemia of chronic renal failure, stage 3 (moderate) Anxiety Arthritis Atherosclerosis of coronary artery bypass graft without angina pectoris Atherosclerotic heart disease of [place] coronary artery without angina pectoris Avascular necrosis of bone of left hip Back pain BiPAP (biphasic positive airway pressure) dependence BMI 31.0-31.9,adult Cardiology follow-up encounter Chronic back pain Chronic diastolic (congestive) heart failure Chronic narcotic use Chronic respiratory failure Chronic respiratory failure Chronic respiratory failure with hypoxia, on home O2 therapy CKD (chronic kidney disease) stage 3, GFR 30-59 ml/min CKD (chronic kidney disease), stage IV COPD (chronic obstructive pulmonary disease) COVID-19 vaccine series completed Depression Depression with anxiety Diabetic gastroparesis Dietary restriction DM2 (diabetes mellitus, type 2) Elevated anti-tissue transglutaminase (tTG) IgA level Encephalopathy Essential (primary) hypertension Fatty liver FCHL (familial combined hyperlipidemia) Flu vaccine need Former smoker Gastric reflux Gastroenteritis High cholesterol High output ileostomy History of COVID-19 History of echocardiogram History of edema History of pain when walking History of renal disease History of stress test Hx of diabetic gastroparesis Hx of psoriasis Hyperlipidemia Hypertension Hypertensive chronic kidney disease with stage 1 through stage 4 chronic kidney disease, or unspecified chronic kidney disease Ileostomy present Increased ammonia level Insulin dependent diabetes mellitus Left hip pain Leg cramps Liver mass Loss of hearing Meniere's disease in remission Menieres disease MGUS (monoclonal gammopathy of unknown significance) Migraine headache Myoclonic jerking Non-alcoholic fatty liver disease Nonalcoholic steatohepatitis Obesity Obstructive sleep apnea Pancreatitis Pancreatitis, acute Preoperative evaluation to rule out surgical contraindication Psoriasis Right flank pain Right thyroid nodule Secondary pulmonary arterial hypertension Short bowel syndrome Shortness of breath on exertion Smoking greater than 20 pack years 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 2 diabetes mellitus Thyroid mass Type 2 diabetes mellitus with diabetic polyneuropathy Ulcerative colitis Ulcerative colitis Walker as ambulation aid Weakness of both hands Weakness of both lower extremities Wears glasses Home Medications aspirin 81 mg tablet,delayed release 81 mg PO DAILY Check with primary doctor 04/08/21 [History Last Taken 04/15/21] clopidogrel 75 mg tablet 75 mg PO DAILY Check with primary doctor 04/22/21 [History Last Taken 04/15/21] metoclopramide HCl 5 mg tablet (Reglan) 5 mg PO DAILY PRN reflux 04/22/21 [History Last Taken Unknown] pantoprazole 40 mg tablet,delayed release 40 mg PO DAILY gerd #90 tabs 05/09/21 [Rx Last Taken Unknown] diphenoxylate-atropine 2.5 mg-0.025 mg tablet (Lomotil) 1 tab PO TID PRN diarrhea #90 tabs 05/19/21 [Rx Last Taken Unknown] atorvastatin 80 mg tablet 80 mg PO QHS CHOLESTEROL LOWERING #90 tabs 08/29/21 [Rx Last Taken Unknown] ursodiol 300 mg capsule 300 mg PO BID Check with primary doctor #180 caps 09/26/21 [Rx Last Taken Unknown] duloxetine 30 mg capsule,delayed release 90 mg PO DAILY Check with primary doctor 10/06/21 [History Last Taken Unknown] vitamin E (dl, acetate) 180 mg (400 unit) capsule 360 mg PO DAILY vitamin 10/15/21 [History Last Taken Unknown] hyoscyamine sulfate 0.125 mg tablet 0.125 mg PO Q6H PRN dyspepsia #60 tabs 11/04/21 [Rx Last Taken Unknown] ondansetron 4 mg disintegrating tablet 4 mg PO Q6H PRN nausea and vomiting #90 tabs 11/04/21 [Rx Last Taken Unknown] Insulin Basal Pump (Pt's Own) [Pump, Basal] 11/15/21 [History Last Taken Unknown] Wheel Chair 11/15/21 [History Last Taken Unknown] betamethasone dipropionate 0.05 % topical cream 1 applic topical DAILY cream 11/15/21 [History Last Taken 03/13/22] blood sugar diagnostic (True Metrix Glucose Test Strip) 11/15/21 [History Last Taken Unknown] blood-glucose meter,continuous (Dexcom G6 Occupational Therapy Assist) 11/15/21 [History Last Taken Unknown] blood-glucose sensor (Dexcom G6 Sensor device) 11/15/21 [History Last Taken Unknown] blood-glucose transmitter (Dexcom G6 Transmitter device) 11/15/21 [History Last Taken Unknown] insulin lispro 200 unit/mL (3 mL) subcutaneous pen (Humalog KwikPen U-200 Insulin) 60 unit subcut TID insulin 11/15/21 [History Last Taken Unknown] metoprolol tartrate 25 mg tablet 75 mg PO BID bp 11/15/21 [History Last Taken Unknown] pen needle, diabetic 32 gauge x 5/32 (BD Ultra-Fine Key Pen Needle) 11/15/21 [History Last Taken Unknown] acetaminophen 325 mg tablet (Tylenol) 650 mg PO Q6H PRN PRN Pain Score 1-10/Temp > 100.7 F #0 tabs 11/18/21 [Rx Last Taken Unknown] buprenorphine 10 mcg/hour weekly transdermal patch 1 patch transdermal Q7D Check with primary doctor 11/18/21 [History Last Taken 11/09/21] loperamide 2 mg capsule (Imodium A-D) 2 mg PO Q6H PRN loose stool #20 caps 11/18/21 [Rx Last Taken Unknown] nitroglycerin 0.4 mg sublingual tablet 0.4 mg sublingual Q5-15M PRN chest pain #25 tabs 11/20/21 [Rx Last Taken Unknown] isosorbide dinitrate 30 mg tablet 30 mg PO BID heart #60 tabs 01/16/22 [Rx Last Taken Unknown] pregabalin 75 mg capsule 75 mg PO BID pain #60 caps 01/16/22 [Rx Last Taken Unknown] insulin pump cart,automated,BT (Omnipod 5 G6 Pods (Gen 5) subcutaneous car tridge) #45 ea 02/09/22 [Rx Last Taken Unknown] ostomy supplies #1 ea 02/13/22 [Rx Last Taken Unknown] buprenorphine 1 patch topical QWEEK pain 03/14/22 [History Last Taken 03/11/22] dapagliflozin 10 mg tablet (Farxiga) 10 mg PO DAILY dm 03/14/22 [History Last Taken 03/13/22] dicyclomine 10 mg capsule 20 mg PO TID PRN abdominal cramp 03/14/22 [History Last Taken Unknown] trazodone 50 mg tablet 50 mg PO QHS sleep 03/14/22 [History Last Taken Unknown] Allergy/AdvReac Type Severity Reaction Status Date / Time aripiprazole [From Abilify] Allergy Intermediate hallucinati Verified 03/13/22 20:44 ons ciprofloxacin Allergy Intermediate Swelling Verified 03/13/22 20:44 cinnamon [Cinnamon] Allergy Anaphylaxis Verified 03/13/22 20:44 Influenza Virus Vaccines Allergy Shortness Verified 03/13/22 20:44 of breath liraglutide [From Victoza] Allergy Anaphylaxis Verified 03/13/22 20:44 metronidazole [From Flagyl] Allergy Hives Verified 03/13/22 20:44 Metronidazole HCl Allergy Hives Verified 03/13/22 20:44 [From Flagyl] Penicillins Allergy Hives Verified 03/13/22 20:44 Sulfa (Sulfonamide Allergy Hives Verified 03/13/22 20:44 Antibiotics) codeine AdvReac Stops Verified 03/13/22 20:44 Ileostomy metformin HCl AdvReac Nausea Verified 03/13/22 20:44 [From Glucophage] ranolazine AdvReac Nausea/Vom/ Verified 03/13/22 20:44 Diarrhea [id number] Reductase AdvReac Nausea/joints Verified 03/13/22 20:44 Inhibitor ache [[id number] Reductase Inhibitor] Family History Mother CVA (cerebral vascular accident) Diabetes Brother Heart disease of CAD at 65 Myocardial infarction Pancreatitis Father Cancer lymphomia Lymphoma Grandmother Myocardial infarction of [place] in her 70s Sister COPD (chronic obstructive pulmonary disease) Surgical History H/O colectomy H/O coronary artery bypass surgery (05/18/12) H/O sinus surgery H/O total hysterectomy history closed fissure History of History of cardiac catheterization History of cholecystectomy History of coronary artery stent placement (11/07/18) ileostomy Ileostomy status left thumb surgery Status post total hip replacement, left Social History household members: none Smoking Status: Former smoker quit date: 03/08/12 how long ago did patient quit smoking: quit in 2012; 0.5-1ppd x 30yrs alcohol intake: never substance use type: does not use diet: diabetic caffeine: No eating out: 1-3 times/week what type of physical activity do you participate in: none seatbelt use: always do you feel safe at home: Yes ROS Constitutional Constitutional: Reports systems reviewed and no addt'l complaints, except as documented; Denies night sweats or weight loss Eyes Eyes: Reports systems reviewed and no addt'l complaints, except as documented; Denies change in vision ENT HEENT: Reports systems reviewed and no addt'l complaints, except as documented; Denies mouth lesions Cardiovascular Cardiovascular: Reports systems reviewed and no addt'l complaints, except as documented; Denies chest pain with activity or edema Respiratory/Chest Respiratory/Chest: Reports systems reviewed and no addt'l complaints, except as documented; Denies cough, dyspnea on exertion or hemoptysis Gastrointestinal Gastrointestinal: Reports systems reviewed and no addt'l complaints, except as d ocumented, nausea and other Details: Chronic diabetic gastroparesis Genitourinary Genitourinary: Reports systems reviewed and no addt'l complaints, except as documented; Denies dysuria or hematuria Musculoskeletal Musculoskeletal: Reports systems reviewed and no addt'l complaints, except as documented, arthralgias, back pain and other Details: Chronic back pain, nonspecific Integumentary Integumentary: Denies rash or wounds Neurologic Neurologic: Reports systems reviewed and no addt'l complaints, except as documented, paresthesias RLE and LLE and other Details: Chronic diabetic neuropathy lower extremities ; Denies focal weakness Psychiatric Psychiatric: Reports systems reviewed and no addt'l complaints, except as documented Endocrine Endocrinology: Reports systems reviewed and no addt'l complaints, except as documented Hematologic/Lymphatic Hematologic/Lymphatic: Reports systems reviewed and no addt'l complaints, except as documented; Denies easy bleeding, easy bruising or lymphadenopathy Allergic/Immunologic Allergic/Immunologic: Reports systems reviewed and no addt'l complaints, except as documented Physical Exam Const alert and no apparent distress Neck no lymphadenopathy Resp normal respiratory effort, no retractions, no use of accessory muscles and clear to auscultation bilaterally Cardio regular rate, regular rhythm, S1 normal heart sound and S2 normal heart sound GI normal to inspection, nondistended, normoactive bowel sounds Extremity normal to inspection Lab / Micro Data Result Diagrams: 03/15/22 05:07 03/15/22 05:07 Labs: Laboratory Results - last 24 hr 03/15/22 05:07: WBC 6.8, RBC 4.32, Hgb 11.7 L, Hct 37.4, MCV 86.6, MCH 27.1, MCHC 31.3 L, RDW Std Deviation 49.0 H, RDW Coeff of Jan 15.5 H, Plt Count 173, MPV 11.9, Immature Gran % (Auto) 1.000 H, Neut % (Auto) 51.6, Lymph % (Auto) 34.4, [place] % (Auto) 5.6, Eos % (Auto) 6.8 H, Baso % (Auto) 0.6, Absolute Neuts (auto) 3.5, Absolute Lymphs (auto) 2.34, Nucleated RBC % 0 03/15/22 05:07: Sodium 141, Potassium 4.8, Chloride 116 H, Carbon Dioxide 19.0 L , Anion Gap 6, BUN 39 H, Creatinine 2.23 H, Estim Creat Clear Calc 25.11, Est GFR (MDRD) Af Amer 29 L, Est GFR (MDRD) Non-Af 24 L, BUN/Creatinine Ratio 17.5, Glucose 143 H, Calcium 8.4 L Assessment & Plan Assessment/Plan (1) High output ileostomy: PLAN: She has a history of ulcerative colitis , status post total proctocolectomy with J-pouch , proximal diversion with loop ileostomy with 270cm small bowel remaining, presented in following 5 days of high output from his ileostomy. Her BUN and creatinine were 68 and 3.8 respectively, with a reported 24 hour urine output of 1 liter , but stated he sometimes goes a day or so without urinating every 4 to 6 weeks. She is feeling a lot better at this time. I do not know what caused this recent episode of high output ileostomy. She is having almost no fluid come from her ileostomy. As an outpatient she should have her anatomy looked at in great detail. I have not done an endoscopic evaluation of her ileostomy. she does have elements of short gut syndrome and we tried to get her Gattex and octreotide. However it was not approved by insurance. Therefore we manage that part with Imodium as needed, PPI BID, 5 mg Lomotil QID, 8 mg Imodium QID, Metamucil TID, cholestyramine BID, oxycodone PRN. The plan I discussed with her is to have her get IV T therapy on a weekly or biweekly basis. If she is tolerating a diet she can be discharged to home as she is actually doing very well and feels very well. (2) Acute kidney injury superimposed on CKD: Charges/Coding Visit Charges Inpatient E&M: 44838 Init Hosp L3
--- NOTE | 2022-03-15 12:55 | PCM.DC ---
Discharge Instructions Diet Discharge Diet: Low fat / Low cholesterol Follow Up Care Test Results: Test results from this visit will be discussed in further detail at your follow-up appointment, if applicable. Discharge Plan Admission Admit Date/Time: 03/14/22 03:46 Primary Reason for Your Visit: RALPH. Attending Provider: Shiva Chandler Primary Care Provider: Mala Mcgrath Consulting Providers: Henri Dutton Discharge Orders/Prescriptions Prescriptions: Continued duloxetine 30 mg capsule,delayed release(DR/EC) 90 mg PO DAILY nitroglycerin 0.4 mg tablet, sublingual 0.4 mg sublingual Q5-15M PRN (Reason: chest pain) Qty: 25 6RF Rx Instructions: do not exceed 3 doses per episode aspirin 81 mg Tablet,Delayed Release (Dr/Ec) 81 mg PO DAILY clopidogrel 75 mg tablet 75 mg PO DAILY Hold Instructions: Resume the day after completion of Eliquis Rx Instructions: TAKE 1 TABLET BY MOUTH EVERY DAY metoclopramide HCl [Reglan] 5 mg Tablet 5 mg PO DAILY PRN (Reason: reflux) vitamin E (dl, acetate) 180 mg (400 unit) capsule 360 mg PO DAILY (DME) True Metrix Glucose Test Strip Strip See Rx Instructions .Route Rx Instructions: 3 times per day betamethasone dipropionate 0.05 % cream 1 applic topical DAILY metoprolol tartrate 25 mg tablet 75 mg PO BID Rx Instructions: Takes 25 mg + 50 mg tablet to + 75 mg BID (DME) Dexcom G6 Sensor Device See Rx Instructions .ROUTE .MEDSUPPLY Rx Instructions: 1 sensor every 10 days (DME) Dexcom G6 Supervisory Training Specialist Misc See Rx Instructions .ROUTE .MEDSUPPLY Rx Instructions: As directed (DME) Dexcom G6 Transmitter Device See Rx Instructions .ROUTE .MEDSUPPLY Rx Instructions: 1 transmitter every 90 days (DME) pen needle, diabetic [BD Ultra-Fine Key Pen Needle] 32 gauge x 5/32 needle See Rx Instructions .ROUTE .MEDSUPPLY Rx Instructions: takes 5 injection/day Humalog KwikPen Insulin 200 unit/mL (3 mL) insulin pen 60 unit subcut TID Rx Instructions: To be given via insulin pump. Patient is aware she will have to draw insulin from pen to place in pump. (DME) Insulin Basal Pump (Pt's Own) [Pump, Basal] See Rx Instructions Rx Instructions: use as directed (DME) Wheel Chair See Rx Instructions Rx Instructions: As directed buprenorphine 10 mcg/hour Patch Weekly 1 patch TRANSDERMAL Q7D Rx Instructions: changes on Sundays acetaminophen [Tylenol] 325 mg Tablet 650 mg PO Q6H PRN PRN (Reason: Pain Score 1-10/Temp > 100.7 F) Qty: 0 0RF loperamide [Imodium A-D] 2 mg capsule 2 mg PO Q6H PRN (Reason: loose stool) Qty: 20 0RF trazodone 50 mg Tablet 50 mg PO QHS dicyclomine 10 mg capsule 20 mg PO TID PRN (Reason: abdominal cramp) buprenorphine 1 patch topical QWEEK Farxiga 10 mg tablet 10 mg PO DAILY pantoprazole 40 mg tablet,delayed release (DR/EC) 40 mg PO DAILY Qty: 90 3RF diphenoxylate-atropine [Lomotil] 2.5-0.025 mg tablet 1 tab PO TID PRN (Reason: diarrhea) Qty: 90 0RF atorvastatin 80 mg tablet 80 mg PO QHS Qty: 90 3RF Label Comments: cholesterol ursodiol 300 mg capsule 300 mg PO BID Qty: 180 1RF ondansetron 4 mg tablet,disintegrating 4 mg PO Q6H PRN (Reason: nausea and vomiting) Qty: 90 0RF hyoscyamine sulfate 0.125 mg tablet 0.125 mg PO Q6H PRN (Reason: dyspepsia) Qty: 60 2RF pregabalin 75 mg capsule 75 mg PO BID Qty: 60 1RF isosorbide dinitrate 30 mg tablet 30 mg PO BID Qty: 60 11RF (DME) Omnipod 5 G6 Pods (Gen 5) Cartridge See Rx Instructions .Route Qty: 45 1RF Rx Instructions: 1 pod q 48 hours (DME) ostomy supplies See Rx Instructions .Route .MEDSUPPLY Qty: 1 0RF Rx Instructions: Pouches Barrier rings Adhesive remover Skin Prep Barrier powder Referrals / Follow Up: Mala Mcgrath MD [Primary Care Provider] - Within 2 Weeks Aj Andino DO [Med Staff - Active Staff] - Within 2 Weeks Disposition Disposition (needs filled in before D/C Order can be placed): Home, Self Care
--- NOTE | 2022-03-15 13:02 | DS.PCM_ITS ---
Providers Date of Admission: 03/14/22 Primary Care Physician: Dr. Mala Mcgrath MD Consultations 03/14/22 08:03 Consult: Gastroenterology Routine Consulting Provider: [facility] Reason for Consult: high output ileostomy EMERGENT Consult: No MD Notified: Yes Date Notified: 03/14/22 Time Notified: 08:04 Method of Notification: Text Reason For Visit: RALPH, HIGH OUTPUT ILEOSTOMY Diagnosis Discharge Diagnosis (1) RALPH (acute kidney injury): Status: Resolved Code(s): N17.9 - Acute kidney failure, unspecified (2) Hypercalcemia: Status: Acute Code(s): E83.52 - Hypercalcemia (3) High output ileostomy: Status: Acute Code(s): R19.8 - Other specified symptoms and signs involving the digestive system and abdomen; Z93.2 - Ileostomy status Medications at Discharge Home Medications aspirin 81 mg tablet,delayed release 81 mg PO DAILY Check with primary doctor 04/08/21 clopidogrel 75 mg tablet 75 mg PO DAILY Check with primary doctor 04/22/21 metoclopramide HCl 5 mg tablet (Reglan) 5 mg PO DAILY PRN reflux 04/22/21 pantoprazole 40 mg tablet,delayed release 40 mg PO DAILY gerd #90 tabs 05/09/21 diphenoxylate-atropine 2.5 mg-0.025 mg tablet (Lomotil) 1 tab PO TID PRN diar wojciech #90 tabs 05/19/21 atorvastatin 80 mg tablet 80 mg PO QHS CHOLESTEROL LOWERING #90 tabs 08/29/21 ursodiol 300 mg capsule 300 mg PO BID Check with primary doctor #180 caps 09/26/21 duloxetine 30 mg capsule,delayed release 90 mg PO DAILY Check with primary doctor 10/06/21 vitamin E (dl, acetate) 180 mg (400 unit) capsule 360 mg PO DAILY vitamin 10/15/21 hyoscyamine sulfate 0.125 mg tablet 0.125 mg PO Q6H PRN dyspepsia #60 tabs 11/04/21 ondansetron 4 mg disintegrating tablet 4 mg PO Q6H PRN nausea and vomiting #90 tabs 11/04/21 Insulin Basal Pump (Pt's Own) [Pump, Basal] 11/15/21 Wheel Chair 11/15/21 betamethasone dipropionate 0.05 % topical cream 1 applic topical DAILY cream 12/27 blood sugar diagnostic (True Metrix Glucose Test Strip) 11/15/21 blood-glucose meter,continuous (Dexcom G6 Patient Insurance Clerk) 11/15/21 blood-glucose sensor (Dexcom G6 Sensor device) 11/15/21 blood-glucose transmitter (Dexcom G6 Transmitter device) 11/15/21 insulin lispro 200 unit/mL (3 mL) subcutaneous pen (Humalog KwikPen U-200 Insulin) 60 unit subcut TID insulin 11/15/21 metoprolol tartrate 25 mg tablet 75 mg PO BID bp 11/15/21 pen needle, diabetic 32 gauge x 5/32 (BD Ultra-Fine Key Pen Needle) 11/15/21 acetaminophen 325 mg tablet (Tylenol) 650 mg PO Q6H PRN PRN Pain Score 1-10/Temp > 100.7 F #0 tabs 11/18/21 buprenorphine 10 mcg/hour weekly transdermal patch 1 patch transdermal Q7D Check with primary doctor 11/18/21 loperamide 2 mg capsule (Imodium A-D) 2 mg PO Q6H PRN loose stool #20 caps 11/18/21 nitroglycerin 0.4 mg sublingual tablet 0.4 mg sublingual Q5-15M PRN chest pain #25 tabs 11/20/21 isosorbide dinitrate 30 mg tablet 30 mg PO BID heart #60 tabs 01/16/22 pregabalin 75 mg capsule 75 mg PO BID pain #60 caps 01/16/22 insulin pump cart,automated,BT (Omnipod 5 G6 Pods (Gen 5) subcutaneous cartridge) #45 ea 02/09/22 ostomy supplies #1 ea 02/13/22 buprenorphine 1 patch topical QWEEK pain 03/14/22 dapagliflozin 10 mg tablet (Farxiga) 10 mg PO DAILY dm 03/14/22 dicyclomine 10 mg capsule 20 mg PO TID PRN abdominal cramp 03/14/22 trazodone 50 mg tablet 50 mg PO QHS sleep 03/14/22 cholestyramine-aspartame 4 gram oral powder (Cholestyramine Light) 4 g PO BID #201.6 grams 03/15/22 psyllium husk 0.4 gram capsule (Metamucil) 0.4 g PO DAILY #30 caps 03/15/22 Hospital Course Operations None Procedures None Summary of Care Provided Minutes Spent on Discharge: 28 Weight / BMI Weight Weight: 88.3 kg Body Mass Index (BMI) 30.4 ABG / Lab / Microbiology Data Result Diagrams: 03/15/22 05:07 03/15/22 05:07 Laboratory: Laboratory Results - last 24 hr 03/15/22 05:07: WBC 6.8, RBC 4.32, Hgb 11.7 L, Hct 37.4, MCV 86.6, MCH 27.1, MCHC 31.3 L, RDW Std Deviation 49.0 H, RDW Coeff of Jan 15.5 H, Plt Count 173, MPV 11.9, Immature Gran % (Auto) 1.000 H, Neut % (Auto) 51.6, Lymph % (Auto) 34.4, [place] % (Auto) 5.6, Eos % (Auto) 6.8 H, Baso % (Auto) 0.6, Absolute Neuts (auto) 3.5, Absolute Lymphs (auto) 2.34, Nucleated RBC % 0 03/15/22 05:07: Sodium 141, Potassium 4.8, Chloride 116 H, Carbon Dioxide 19.0 L , Anion Gap 6, BUN 39 H, Creatinine 2.23 H, Estim Creat Clear Calc 25.11, Est GFR (MDRD) Af Amer 29 L, Est GFR (MDRD) Non-Af 24 L, BUN/Creatinine Ratio 17.5, Glucose 143 H, Calcium 8.4 L D/C Instructions Discharge Diet: Low fat / Low cholesterol Meaningful Use Info Meaningful Use Diagnoses (Choose all that apply): None applicable Discharge Plan Admission Admit Date/Time: 03/14/22 03:46 Primary Reason for Your Visit: RALPH. Attending Provider: Shiva Chandler Primary Care Provider: Mala Mcgrath Consulting Providers: Henri Dutton Discharge Orders/Prescriptions Prescriptions: New Cholestyramine Light 4 gram powder 4 g PO BID Qty: 201.6 0RF Rx Instructions: administer w/meal; avoid other meds within 1hr before or 4-6hr after dose psyllium husk [Metamucil] 0.4 gram capsule 0.4 g PO DAILY Qty: 30 0RF Continued duloxetine 30 mg capsule,delayed release(DR/EC) 90 mg PO DAILY nitroglycerin 0.4 mg tablet, sublingual 0.4 mg sublingual Q5-15M PRN (Reason: chest pain) Qty: 25 6RF Rx Instructions: do not exceed 3 doses per episode aspirin 81 mg Tablet,Delayed Release (Dr/Ec) 81 mg PO DAILY clopidogrel 75 mg tablet 75 mg PO DAILY Hold Instructions: Resume the day after completion of Eliquis Rx Instructions: TAKE 1 TABLET BY MOUTH EVERY DAY metoclopramide HCl [Reglan] 5 mg Tablet 5 mg PO DAILY PRN (Reason: reflux) vitamin E (dl, acetate) 180 mg (400 unit) capsule 360 mg PO DAILY (DME) True Metrix Glucose Test Strip Strip See Rx Instructions .Route Rx Instructions: 3 times per day betamethasone dipropionate 0.05 % cream 1 applic topical DAILY metoprolol tartrate 25 mg tablet 75 mg PO BID Rx Instructions: Takes 25 mg + 50 mg tablet to + 75 mg BID (DME) Dexcom G6 Sensor Device See Rx Instructions .ROUTE .MEDSUPPLY Rx Instructions: 1 sensor every 10 days (DME) Dexcom G6 Patient Insurance Clerk Misc See Rx Instructions .ROUTE .MEDSUPPLY Rx Instructions: As directed (DME) Dexcom G6 Transmitter Device See Rx Instructions .ROUTE .MEDSUPPLY Rx Instructions: 1 transmitter every 90 days (DME) pen needle, diabetic [BD Ultra-Fine Key Pen Needle] 32 gauge x 5/32 needle See Rx Instructions .ROUTE .MEDSUPPLY Rx Instructions: takes 5 injection/day Humalog KwikPen Insulin 200 unit/mL (3 mL) insulin pen 60 unit subcut TID Rx Instructions: To be given via insulin pump. Patient is aware she will have to draw insulin from pen to place in pump. (DME) Insulin Basal Pump (Pt's Own) [Pump, Basal] See Rx Instructions Rx Instructions: use as directed (DME) Wheel Chair See Rx Instructions Rx Instructions: As directed buprenorphine 10 mcg/hour Patch Weekly 1 patch TRANSDERMAL Q7D Rx Instructions: changes on Sundays acetaminophen [Tylenol] 325 mg Tablet 650 mg PO Q6H PRN PRN (Reason: Pain Score 1-10/Temp > 100.7 F) Qty: 0 0RF loperamide [Imodium A-D] 2 mg capsule 2 mg PO Q6H PRN (Reason: loose stool) Qty: 20 0RF trazodone 50 mg Tablet 50 mg PO QHS dicyclomine 10 mg capsule 20 mg PO TID PRN (Reason: abdominal cramp) buprenorphine 1 patch topical QWEEK Farxiga 10 mg tablet 10 mg PO DAILY pantoprazole 40 mg tablet,delayed release (DR/EC) 40 mg PO DAILY Qty: 90 3RF diphenoxylate-atropine [Lomotil] 2.5-0.025 mg tablet 1 tab PO TID PRN (Reason: diarrhea) Qty: 90 0RF atorvastatin 80 mg tablet 80 mg PO QHS Qty: 90 3RF Label Comments: cholesterol ursodiol 300 mg capsule 300 mg PO BID Qty: 180 1RF ondansetron 4 mg tablet,disintegrating 4 mg PO Q6H PRN (Reason: nausea and vomiting) Qty: 90 0RF hyoscyamine sulfate 0.125 mg tablet 0.125 mg PO Q6H PRN (Reason: dyspepsia) Qty: 60 2RF pregabalin 75 mg capsule 75 mg PO BID Qty: 60 1RF isosorbide dinitrate 30 mg tablet 30 mg PO BID Qty: 60 11RF (DME) Omnipod 5 G6 Pods (Gen 5) Cartridge See Rx Instructions .Route Qty: 45 1RF Rx Instructions: 1 pod q 48 hours (DME) ostomy supplies See Rx Instructions .Route .MEDSUPPLY Qty: 1 0RF Rx Instructions: Pouches Barrier rings Adhesive remover Skin Prep Barrier powder Referrals / Follow Up: Mala Mcgrath MD [Primary Care Provider] - Within 2 Weeks Aj Andino DO [Med Staff - Active Staff] - Within 2 Weeks Disposition Disposition (needs filled in before D/C Order can be placed): Home, Self Care Charges/Coding Visit Charges Inpatient E&M: 87989 Disch Hosp
== END 2022-03-15 14:30 | disposition home or self-care (01) | DRG 683 ==
LOC: ED 03-14 03:36 → MS2 03-14 07:01
PROVIDERS: Admitting Provider Hospitalist; Emergency Provider Emergency Medicine; PCP Internal Medicine
DX: N17.9 Acute kidney failure, unspecified (principal); Z93.2 Ileostomy status; J44.9 Chronic obstructive pulmonary disease, unspecified; I50.32 Chronic diastolic (congestive) heart failure; I13.0 Hypertensive heart and chronic kidney disease with heart failure and stage 1 through stage 4 chronic kidney disease, or unspecified chronic kidney disease; E11.22 Type 2 diabetes mellitus with diabetic chronic kidney disease; E11.42 Type 2 diabetes mellitus with diabetic polyneuropathy; E11.65 Type 2 diabetes mellitus with hyperglycemia; E11.43 Type 2 diabetes mellitus with diabetic autonomic (poly)neuropathy; Z79.4 Long term (current) use of insulin; N18.31 Chronic kidney disease, stage 3a; K90.9 Intestinal malabsorption, unspecified; E78.00 Pure hypercholesterolemia, unspecified; E86.0 Dehydration; E83.52 Hypercalcemia; I25.10 Atherosclerotic heart disease of native coronary artery without angina pectoris; K31.84 Gastroparesis; G89.29 Other chronic pain; Z90.49 Acquired absence of other specified parts of digestive tract; Z95.1 Presence of aortocoronary bypass graft; Z95.5 Presence of coronary angioplasty implant and graft; Z79.02 Long term (current) use of antithrombotics/antiplatelets; Z79.82 Long term (current) use of aspirin; Z79.899 Other long term (current) drug therapy; Z87.891 Personal history of nicotine dependence; Z86.16 Personal history of COVID-19
CPT/HCPCS: 36415; 72070; 72100; 80048; 80053; 82962; 83735; 84100; 85025; 96361; 96372; 96374; 97802; 99221; 99284; J7030; J7040; A4216; G0378; J2405

== ENCOUNTER → 2022-03-13 | Outpatient (CLI) | payer MEDICARE, MEDICAID, SELFPAY ==
[2020-11-27 10:47] VITALS: BMI 30.9
[2022-03-13 11:26] LABS: Absolute Lymphocyte Count 4.09 X10^3/uL (0.83-4.51); Basophil# 0.06 X10^3/uL; Basophil% 0.4 % (0-1); Eosinophil# 0.72 X10^3/uL; Eosinophils% 5.2 % (0-5); Hematocrit 51.2 % (37-47); Hemoglobin 16.2 g/dL (12.0-15.0); Lymphocyte # 4.09 X10^3/ul (0.83-4.51); Lymphocyte % 29.7 % (19-41); Mean Corp Hgb Conc 31.6 g/dL (32-36); Mean Corpuscular Hgb 27.6 pg (27.0-32.0); Mean Corpuscular Volume 87.1 fL (81-99); Mean Platelet Vol. 12.8 fl (6.2-12.0); Monocyte# 0.83 X10^3/uL; NRBC Flagged by Analyzer 0 % (0-5); Neutrophil # 7.98 X10^3/uL (2.7-7.7); Neutrophil % 58.1 % (47-70); Platelet Count 243 K/mm3 (150-450); RBC Distribution Width SD 47.8 fl (35.1-43.9); Red Blood Count 5.88 M/mm3 (4.2-5.4); White Blood Count 13.8 K/mm3 (4.4-11.0)
[2022-03-13 11:51] LABS: ALB/GLOB Ratio 0.7 RATIO (0.9-2.4); AST(SGOT) 12 U/L (15-37); Alanine Aminotransfer ALT/SGPT 23 U/L (13-56); Albumin, Serum 3.6 g/dL (3.2-5.0); Alkaline Phosphatase 194 U/L (45-117); Anion Gap 5 (5-15); BUN 45 mg/dL (7-18); BUN/Creat Ratio 13.3 RATIO (10-20); Calcium,Total 10.4 mg/dL (8.5-10.1); Chloride 105 mmol/L (98-107); Creatinine, Serum 3.38 mg/dL (0.55-1.02); EST Glomerular Filtration Rate 15 mL/min (>60); Est Glom Filt Rate - Afr Amer 18 mL/min (>60); Globulin 5.2 g/dL (2.2-4.2); Glucose 206 mg/dL (74-106); Magnesium 1.7 mg/dL (1.6-2.6); Phosphorus 4.3 mg/dL (2.5-4.9); Potassium 4.8 mmol/L (3.5-5.1); Protein, Total 8.8 g/dL (6.4-8.2); Sodium Level 132 mmol/L (136-145)
== END | disposition home or self-care (01) ==
LOC: LAB 10:31
PROVIDERS: PCP Internal Medicine; Visit Provider Internal Medicine Gastroenterology
DX: I25.10 Atherosclerotic heart disease of native coronary artery without angina pectoris (principal); E66.9 Obesity, unspecified
CPT/HCPCS: 36415; 80053; 83735; 84100; 85025

== ENCOUNTER → 2022-03-26 | Outpatient (CLI) | payer MEDICARE, MEDICAID, SELFPAY ==
[2020-11-27 10:47] VITALS: BMI 30.9
[2022-03-26] MEDS: 0.9% Normal Saline 1,000 ML 999 ML IV ×2 (10:05→11:16)
[2022-03-26] MEDS: 0.9% NaCl Peripheral Flush Adult/Peds IV (10:05)
[2022-03-26 10:12] VITALS: BP 140/57; PULSE 63; RESP 16; TEMP 36.2; O2SAT 96; BMI 31.3
[2022-03-26 12:31] VITALS: BP 135/67; PULSE 72
== END | disposition home or self-care (01) ==
LOC: MEDOUTP 09:44
PROVIDERS: PCP Internal Medicine; Referring Provider Internal Medicine Gastroenterology; Visit Provider Internal Medicine Gastroenterology
DX: K94.13 Enterostomy malfunction (principal); R19.8 Other specified symptoms and signs involving the digestive system and abdomen
CPT/HCPCS: 96360; 96361; J7030; A4216

== ENCOUNTER → 2022-04-03 | Outpatient (CLI) | payer MEDICARE, MEDICAID, SELFPAY ==
[2020-11-27 10:47] VITALS: BMI 30.9
[2022-04-03 12:28] LABS: ALB/GLOB Ratio 0.9 RATIO (0.9-2.4); AST(SGOT) 19 U/L (15-37); Alanine Aminotransfer ALT/SGPT 28 U/L (13-56); Albumin, Serum 3.6 g/dL (3.2-5.0); Alkaline Phosphatase 210 U/L (45-117); Anion Gap 8 (5-15); BUN 32 mg/dL (7-18); BUN/Creat Ratio 16.2 RATIO (10-20); Chloride 110 mmol/L (98-107); Creatinine, Serum 1.97 mg/dL (0.55-1.02); EST Glomerular Filtration Rate 27 mL/min (>60); Est Glom Filt Rate - Afr Amer 33 mL/min (>60); Globulin 4.2 g/dL (2.2-4.2); Glucose 216 mg/dL (74-106); Potassium 4.6 mmol/L (3.5-5.1); Protein, Total 7.8 g/dL (6.4-8.2); Sodium Level 142 mmol/L (136-145)
[2022-04-03 12:35] LABS: Hemoglobin A1c 6.7 % (3.8-5.6)
== END | disposition home or self-care (01) ==
LOC: BIMLAB 11:15
PROVIDERS: PCP Internal Medicine; Referring Provider Internal Medicine; Visit Provider Internal Medicine
DX: E11.42 Type 2 diabetes mellitus with diabetic polyneuropathy (principal)
CPT/HCPCS: 36415; 80053; 83036

== ENCOUNTER → 2022-04-09 | Outpatient (CLI) | payer MEDICARE, MEDICAID, SELFPAY ==
[2020-11-27 10:47] VITALS: BMI 30.9
[2022-04-09] MEDS: 0.9% NaCl Peripheral Flush Adult/Peds IV (10:32)
[2022-04-09 10:33] VITALS: BP 158/58; PULSE 79; RESP 16; O2SAT 96; BMI 31.3
[2022-04-09] MEDS: 0.9% Normal Saline 1,000 ML 999 ML IV ×2 (10:33→11:40)
[2022-04-09 12:48] VITALS: BP 128/46; PULSE 68
== END | disposition home or self-care (01) ==
PROVIDERS: PCP Internal Medicine; Referring Provider Internal Medicine Gastroenterology; Visit Provider Internal Medicine Gastroenterology
DX: R19.8 Other specified symptoms and signs involving the digestive system and abdomen (principal)
CPT/HCPCS: J7030; A4216

== ENCOUNTER → 2022-04-09 | Outpatient (CLI) | payer MEDICARE, MEDICAID, SELFPAY ==
[2020-11-27 10:47] VITALS: BMI 30.9
--- NOTE | 2022-04-09 15:03 | CT_ITS ---
STUDY: LOW DOSE CT LUNG CANCER SCREENING REASON FOR EXAM: Female, 61 years old. Smoker and gt; 20 pack years, quit 2012 RADIATION DOSAGE (If Supplied By Facility): CTDIvol = ( 3.02 ) mGy, DLP = ( 99.68 ) mGycm TECHNIQUE: No contrast was administered. Low dose technique was utilized (average mAS-38 and kVp 120). 1.25 mm axial source images with a slice interval of 1.25-mm were reconstructed in lung windows. 2.5 mm axial source images with a slice interval of 2.5-mm were reconstructed in lung windows. 5.0 mm axial source images with a slice interval of 5.0-mm were reconstructed in soft tissue windows. COMPARISON: Comparison is made with prior study dated 04/09/2021. NODULES: No suspicious nodules are seen. Emphysema: Mild emphysematous changes with increased linear markings at the lung bases suggesting mild scarring. Endobronchial lesion: Unremarkable Aorta: Atherosclerotic calcific plaques. CORONARY ARTERIES: Coronary artery calcification is seen. Heart: Unremarkable Pulmonary artery: Unremarkable Mediastinal nodes: Small mediastinal lymph nodes. Other chest and abdominal findings: CT/Low Dose CT Lung Screening IMPRESSION: Lung-RADS category 2 - Continue annual screening with LDCT in 12 months. IMPORTANT NOTES FOR USE: ACR Lung-RADS Version 1.1 Assessment Categories Release Date: 2018 Category: Coded 0-4 bases on nodule(s) with highest degree of suspicion. Negative screen is defined as categories 1 and 2; a positive screen is defined as categories 3 and 4. Category 3 and 4A nodules that are unchanged on interval CT should be coded as category 2, and individuals returned to screening in 12 months. Category 4X: Category 3 or 4 nodules with additional imaging findings that increase the suspicion of lung cancer, such as spiculation, GGN that doubles in size in 1 year, enlarged lymph notes, etc. Category Modifiers: S (significant finding unrelated to lung cancer) Electronically Signed: Eric Spencer MD at 15:29 EST ,
== END | disposition home or self-care (01) ==
LOC: CT 15:02
PROVIDERS: PCP Internal Medicine; Referring Provider Nurse Practitioner Acute Care; Visit Provider Nurse Practitioner Acute Care
DX: F17.210 Nicotine dependence, cigarettes, uncomplicated (principal); R19.8 Other specified symptoms and signs involving the digestive system and abdomen
CPT/HCPCS: 71271; J7030; A4216

== ENCOUNTER → 2022-04-21 | Outpatient (CLI) | payer MEDICARE, MEDICAID, SELFPAY ==
[2020-11-27 10:47] VITALS: BMI 30.9
[2022-04-21] MEDS: 0.9% Normal Saline 1,000 ML 999 ML IV ×2 (12:43→13:49)
[2022-04-21] MEDS: 0.9% NaCl Peripheral Flush Adult/Peds IV (12:43)
[2022-04-21 12:49] VITALS: BP 131/63; PULSE 78; RESP 16; TEMP 36.1; O2SAT 94; BMI 31.3
[2022-04-21 15:06] VITALS: BP 135/55; PULSE 73; RESP 16; TEMP 36.7; O2SAT 94
== END | disposition home or self-care (01) ==
PROVIDERS: PCP Internal Medicine; Referring Provider Internal Medicine Gastroenterology; Visit Provider Internal Medicine Gastroenterology
DX: R19.8 Other specified symptoms and signs involving the digestive system and abdomen (principal)
CPT/HCPCS: 96360; 96361; J7030; A4216

== ENCOUNTER → 2022-05-07 | Outpatient (CLI) | payer MEDICARE, MEDICAID, SELFPAY ==
[2020-11-27 10:47] VITALS: BMI 30.9
[2022-05-07 12:54] VITALS: BP 135/60; PULSE 67; RESP 16; TEMP 36.4; O2SAT 96; BMI 31.3
[2022-05-07 12:59] VITALS: BP 135/60; PULSE 67; RESP 17; TEMP 36.4; O2SAT 96
[2022-05-07] MEDS: 0.9% NaCl Peripheral Flush Adult/Peds IV (13:10)
[2022-05-07] MEDS: 0.9% Normal Saline 1,000 ML 999 ML IV ×2 (13:10→14:13)
[2022-05-07 15:30] VITALS: BP 166/58; PULSE 66; RESP 16; TEMP 36.7; O2SAT 97
== END | disposition home or self-care (01) ==
LOC: MEDOUTP 12:45
PROVIDERS: PCP Internal Medicine; Referring Provider Internal Medicine Gastroenterology; Visit Provider Internal Medicine Gastroenterology
DX: R19.8 Other specified symptoms and signs involving the digestive system and abdomen (principal)
CPT/HCPCS: 96360; 96361; J7030; A4216

== ENCOUNTER → 2022-05-21 | Outpatient (CLI) | payer MEDICARE, MEDICAID, SELFPAY ==
[2020-11-27 10:47] VITALS: BMI 30.9
[2022-05-21] MEDS: 0.9% NaCl Peripheral Flush Adult/Peds IV (12:25)
[2022-05-21] MEDS: 0.9% Normal Saline 1,000 ML 999 ML IV ×2 (12:26→13:35)
[2022-05-21 12:31] VITALS: BP 134/55; PULSE 69; RESP 16; TEMP 35.9; O2SAT 95; BMI 31.3
[2022-05-21 14:44] VITALS: BP 129/53; PULSE 69; RESP 17; TEMP 36.2; O2SAT 98
== END | disposition home or self-care (01) ==
LOC: MEDOUTP 12:09
PROVIDERS: PCP Internal Medicine; Referring Provider Internal Medicine Gastroenterology; Visit Provider Internal Medicine Gastroenterology
DX: R19.8 Other specified symptoms and signs involving the digestive system and abdomen (principal)
CPT/HCPCS: 96360; 96361; J7030; A4216

== ENCOUNTER 2022-05-27 14:42 | Observation (INO) | payer MEDICARE, MEDICAID, SELFPAY ==
[2020-11-27 10:47] VITALS: BMI 30.9
[2022-05-27 14:43] VITALS: BP 109/62; PULSE 69; RESP 15; TEMP 36.1; O2SAT 98; BMI 32.4
--- NOTE | 2022-05-27 14:50 | RAD_ITS ---
STUDY: X-RAY - PELVIS AND LEFT HIP REASON FOR EXAM: Female, 61 years old. Pain following injury. TECHNIQUE: 3 views of the pelvis and hip. COMPARISON: Comparison is made with prior study May 25, 2021. FINDINGS: There is a non-specific bowel gas pattern. Normal visualized soft tissue structures. There is narrowing with cortical sclerosis and osteophyte formation of the sacroiliac joint consistent with degenerative osteoarthritic changes. Stable 1 cm rounded sclerotic density seen in the superior right sacrum suggestive of possible bone island. Normal bilateral superior and inferior pubic rami. There are degenerative changes of the pubic symphysis with articular narrowing and sclerosis. Normal bilateral ischial tuberosities. The patient is status post left total hip replacement. There is good alignment. RAD/HIP, UNI W/ Pelvis 2-3 Views IMPRESSION: Status post left total hip replacement. Stable 1 cm bone island in the superior aspect of the right sacrum. Electronically Signed: Eric Spencer MD at 15:31 EDT ,
--- NOTE | 2022-05-27 18:00 | EDS_ITS ---
HPI History of Present Illness Chief Complaint: Lower Extremity Injury Detail of Chief Complaint: Pain left buttocks and posterior left thigh Informant: patient and family Occured/Mechanism Comment: Patient states the pain started yesterday. She then fell. Onset/Context/Timing Onset: Yesterday Context: Sudden Onset Timing: Continuous Quality of Pain: - (Pain) Current Severity: Mild Maximum Severity: Severe Worsened by: Movement, standing, sitting Relieved by: Nothing Associated Symptoms Associated Symptoms: Positive for - (Leg gives out when the pain is severe); Negative for Parasthesia, Weakness or Loss of Funtion Narrative Narrative: Patient is a 61-year-old woman who is status post left total hip arthroplasty by Dr. Camacho April of this year. Patient presents with pain left buttocks, posterior left thigh and at times the entire left lower extremity. She denies paresthesia, anesthesia or motor weakness. She denies bowel bladder dysfunction. She denies saddle paresthesia or anesthesia. She denies foot drop. She has not gone up or down any steps since the onset of the pain. She denies fever, chills night sweats. She denies dysuria, frequency, urgency or hematuria. Patient does have a colostomy due to inflammatory bowel disorder. There is been no change in her bowels. Prior similar symptoms: No Recent Illness/Hospitalization: Yes PFSH [facility] Medical History Acute kidney injury Anemia of chronic renal failure, stage 3 (moderate) Anxiety Arthritis Atherosclerosis of coronary artery bypass graft without angina pectoris Atherosclerotic heart disease of [place] coronary artery without angina pectoris Avascular necrosis of bone of left hip Back pain BiPAP (biphasic positive airway pressure) dependence BMI 31.0-31.9,adult Cardiology follow-up encounter Cellulitis, abdominal wall Chronic back pain Chronic diastolic (congestive) heart failure Chronic narcotic use Chronic respiratory failure Chronic respiratory failure Chronic respiratory failure with hypoxia, on home O2 therapy CKD (chronic kidney disease), stage IV COPD (chronic obstructive pulmonary disease) COVID-19 vaccine series completed Depression Depression with anxiety Diabetic gastroparesis Dietary restriction DM2 (diabetes mellitus, type 2) Elevated anti-tissue transglutaminase (tTG) IgA level Encephalopathy Essential (primary) hypertension Fatty liver FCHL (familial combined hyperlipidemia) Flu vaccine need Former smoker Gastric reflux Gastroenteritis Gastroparesis High cholesterol High output ileostomy History of COVID-19 History of echocardiogram History of edema History of pain when walking History of renal disease History of stress test Hx of diabetic gastroparesis Hx of psoriasis Hyperglycemia due to type 2 diabetes mellitus Hyperlipidemia Hypertension Hypertensive chronic kidney disease with stage 1 through stage 4 chronic kidney disease, or unspecified chronic kidney disease Ileostomy present Increased ammonia level Insulin dependent diabetes mellitus Left hip pain Left shoulder pain Leg cramps Liver mass Loss of hearing Meniere's disease in remission Menieres disease MGUS (monoclonal gammopathy of unknown significance) Migraine headache Myoclonic jerking Non-alcoholic fatty liver disease Nonalcoholic steatohepatitis Obesity Obesity Obstructive sleep apnea Pancreatitis Pancreatitis, acute Preoperative evaluation to rule out surgical contraindication Psoriasis Right flank pain Right thyroid nodule Secondary pulmonary arterial hypertension Short bowel syndrome Shortness of breath on exertion Smoking greater than 20 pack years 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 2 diabetes mellitus Thyroid mass Type 2 diabetes mellitus with diabetic polyneuropathy Ulcerative colitis Ulcerative colitis Vitamin D deficiency Walker as ambulation aid Weakness of both hands Weakness of both lower extremities Wears glasses Home Medications aspirin 81 mg tablet,delayed release 81 mg PO DAILY Check with primary doctor 04/08/21 [History Last Taken 04/15/21] diphenoxylate-atropine 2.5 mg-0.025 mg tablet (Lomotil) 1 tab PO TID PRN diarrhea #90 tabs 05/19/21 [Rx Last Taken Unknown] atorvastatin 80 mg tablet 80 mg PO QHS CHOLESTEROL LOWERING #90 tabs 08/29/21 [Rx Last Taken Unknown] duloxetine 30 mg capsule,delayed release 90 mg PO DAILY Check with primary doctor 10/06/21 [History Last Taken Unknown] vitamin E (dl, acetate) 180 mg (400 unit) capsule 360 mg PO DAILY vitamin 10/15/21 [History Last Taken Unknown] hyoscyamine sulfate 0.125 mg tablet 0.125 mg PO Q6H PRN dyspepsia #60 tabs 11/04/21 [Rx Last Taken Unknown] ondansetron 4 mg disintegrating tablet 4 mg PO Q6H PRN nausea and vomiting #90 tabs 11/04/21 [Rx Last Taken Unknown] Insulin Basal Pump (Pt's Own) [Pump, Basal] 11/15/21 [History Last Taken Unknown] Wheel Chair 11/15/21 [History Last Taken Unknown] betamethasone dipropionate 0.05 % topical cream 1 applic topical DAILY cream 11/15/21 [History Last Taken 03/13/22] blood sugar diagnostic (True Metrix Glucose Test Strip) 11/15/21 [History Last Taken Unknown] blood-glucose meter,continuous (Dexcom G6 [place]) 11/15/21 [History Last Taken Unknown] blood-glucose sensor (Dexcom G6 Sensor device) 11/15/21 [History Last Taken Unknown] blood-glucose transmitter (Dexcom G6 Transmitter device) 11/15/21 [History Last Taken Unknown] metoprolol tartrate 25 mg tablet 75 mg PO BID bp 11/15/21 [History Last Taken Unknown] pen needle, diabetic 32 gauge x 5/32 (BD Ultra-Fine Key Pen Needle) 11/15/21 [History Last Taken Unknown] buprenorphine 10 mcg/hour weekly transdermal patch 1 patch transdermal Q7D Check with primary doctor 11/18/21 [History Last Taken 11/09/21] loperamide 2 mg capsule (Imodium A-D) 2 mg PO Q6H PRN loose stool #20 caps 11/18 [Rx Last Taken Unknown] nitroglycerin 0.4 mg sublingual tablet 0.4 mg sublingual Q5-15M PRN chest pain #25 tabs 11/20/21 [Rx Last Taken Unknown] isosorbide dinitrate 30 mg tablet 30 mg PO BID heart #60 tabs 01/16/22 [Rx Last Taken Unknown] insulin pump cart,automated,BT (Omnipod 5 G6 Pods (Gen 5) subcutaneous cartridge) #45 ea 02/09/22 [Rx Last Taken Unknown] ostomy supplies #1 ea 02/13/22 [Rx Last Taken Unknown] dicyclomine 10 mg capsule 20 mg PO TID PRN abdominal cramp 03/14/22 [History Last Taken Unknown] trazodone 50 mg tablet 50 mg PO QHS sleep 03/14/22 [History Last Taken Unknown] clopidogrel 75 mg tablet 75 mg PO DAILY Check with primary doctor #90 tabs 03/16/22 [Rx Last Taken Unknown] dapagliflozin 10 mg tablet (Farxiga) 10 mg PO DAILY #90 tabs 03/19/22 [Rx Last Taken Unknown] ursodiol 300 mg capsule 300 mg PO BID Check with primary doctor #180 caps 03/19/22 [Rx Last Taken Unknown] metoclopramide HCl 5 mg tablet (Reglan) 5 mg PO BID reflux 04/03/22 [History Last Taken Unknown] pantoprazole 40 mg tablet,delayed release See Rx Instructions .Route .COMPLEX #28 tabs 04/07/22 [Rx Last Taken Unknown] insulin lispro 200 unit/mL (3 mL) subcutaneous pen (Humalog KwikPen U-200 I nsulin) 100 unit (0.5 mL) subcut .continuous #45 mL 04/15/22 [Rx Last Taken Unknown] pregabalin 75 mg capsule 75 mg PO BID pain #60 caps 05/08/22 [Rx Last Taken Unknown] hydrochlorothiazide 25 mg tablet 25 mg PO DAILY #1 TAB 05/13/22 [Rx Last Taken Unknown] Allergy/AdvReac Type Severity Reaction Status Date / Time ciprofloxacin Allergy Intermediate Swelling Verified 05/27/22 14:45 cinnamon [Cinnamon] Allergy Anaphylaxis Verified 05/27/22 14:45 Influenza Virus Vaccines Allergy Shortness Verified 05/27/22 14:45 of breath liraglutide [From Victoza] Allergy Anaphylaxis Verified 05/27/22 14:45 metformin [From Glucophage] Allergy NEEDS Verified 05/27/22 14:45 FOLLOW-UP metronidazole [From Flagyl] Allergy Hives Verified 05/27/22 14:45 Metronidazole HCl Allergy Hives Verified 05/27/22 14:45 [From Flagyl] Penicillins Allergy Hives Verified 05/27/22 14:45 Sulfa (Sulfonamide Allergy Hives Verified 05/27/22 14:45 Antibiotics) aripiprazole [From Abilify] AdvReac hallucinati Verified 05/27/22 14:45 ons codeine AdvReac Stops Verified 05/27/22 14:45 Ileostomy metformin HCl AdvReac Nausea Verified 05/27/22 14:45 [From Glucophage] ranolazine AdvReac Nausea/Vom/ Verified 05/27/22 14:45 Diarrhea [id number]-MCT-AtS Reductase AdvReac Nausea/joints Verified 05/27/22 14:45 Inhibitor ache [Qcoubuf-Vdo-Gqc Reductase Inhibitor] Family History Mother CVA (cerebral vascular accident) Diabetes Brother Heart disease of CAD at 65 Myocardial infarction Pancreatitis Father Cancer lymphomia Lymphoma Grandmother Myocardial infarction of [place] in her 70s Sister COPD (chronic obstructive pulmonary disease) Surgical History H/O colectomy H/O coronary artery bypass surgery (05/18/12) H/O sinus surgery H/O total hysterectomy history closed fissure History of History of cardiac catheterization History of cholecystectomy History of coronary artery stent placement (01/12/18) ileostomy Ileostomy status left thumb surgery Status post total hip replacement, left Social History household members: none Smoking Status: Former smoker quit date: 03/08/12 how long ago did patient quit smoking: quit in 2012; 0.5-1ppd x 30yrs alcohol intake: never substance use type: does not use diet: diabetic caffeine: No eating out: 1-3 times/week what type of physical activity do you participate in: none seatbelt use: always do you feel safe at home: Yes ROS ROS ED Constitutional Constitutional ED: Denies chills, fever(s), subjective, sweats or weight loss Eyes Eyes: Denies blurry vision, change in vision or diplopia ENT ENT ED: Denies ear pain, rhinorrhea or sore throat Cardiovascular Cardiovascular: Denies chest pain, palpitations or racing heartbeat Respiratory/Chest Respiratory/Chest: Denies cough, dyspnea or dyspnea on exertion Gastrointestinal Gastrointestinal: Denies abdominal pain, constipation, diarrhea, nausea or vomiting Genitourinary Genitourinary ED: Denies dysuria, hematuria or urinary frequency Musculoskeletal Musculoskeletal: Reports back pain and other Details: Left buttocks and posterior left thigh pain ; Denies arthralgias, myalgias or neck pain Integumentary Denies abscess, Abrasions or rash Neurologic Neurologic: Denies headache(s), paresthesias or weakness Hematologic/Lymphatic Hematologic/Lymphatic: Denies easy bleeding or easy bruising EXAM Physical Exam Const Vital Signs: 05/27/22 14:43 Temperature 96.9 F L Temperature Source Temporal Pulse Rate 69 Respiratory Rate 15 Blood Pressure 109/62 Blood Pressure Mean 77 Pulse Ox 98 Oxygen Delivery Method Room Air Positive well nourished, well developed and obese General Appearance ED: well developed; Negative for NAD Nutritional Appearance: obese HEENT Reports moist mucous membranes normocephalic and atraumatic Eyes PERRL Eyes Narrative: Extraocular muscles are intact. Sclera is anicteric. Neck full ROM and supple Chest Wall inspection of chest normal and palpation of chest normal Resp normal respiratory effort, no retractions and clear to auscultation bilaterally Cardio regular rate, regular rhythm, S1 normal heart sound, S2 normal heart sound and no murmurs GI non-tender, non-distended and no masses GI Narrative: Colostomy noted left lower quadrant. Auscultation: normoactive bowel sounds Palpation: soft Back/Spine Back/Spine Narrative: Patella and ankle reflex are 1+ and symmetric. EHL is intact. Normal sensation over L3, L4, L5 and S1 dermatome. DP and PT pulse are 2+ and symmetric. Normal sensation in the buttocks. Patient has pain with movement of her left lower extremity as well as palpation of the left lower back, buttocks and posterior left thigh. Thoracic Spine / Upper Back: Negative for thoracic spinal tenderness Lumbar Spine / Lower Back: lumbar spinal tenderness and straight leg raise negative bilaterally Extremity normal to inspection Extremity Narrative: Normal other than dry skin General Extremety ED: Negative for cyanosis or edema General Extremity: Negative for cyanosis or edema Neuro oriented x3, CN's II-XII intact bilaterally, moves all extremities and no sensory deficits noted Sensorium / Orientation: alert Motor Exam: strength 5/5 throughout Deep Tendon Reflexes: Rt Patellar (L4): 1+, Lt Patellar (L4): 1+, Rt Ankle (S1): 1+ and Lt Ankle (S1): 1+ Deep Tendon Reflexes Back: Rt Patellar (L4): 1+, Lt Patellar (L4): 1+, Rt Ankle (S1): 1+ and Lt Ankle (S1): 1+ Plantar Reflex: Downgoing: bilateral Skin Skin Narrative: Dry skin MDM MDM MDM Narrative Medical decision making narrative: With history of recent hip surgery and recent fall x-ray was obtained per nurse protocol. There is no evidence of fracture, subluxation or dislocation of the prosthetic joint. There is evidence of osteoarthritic changes. Radiologist made comment that there is a stable 1 cm lesion noted. This was not seen by me initially. Patient's pain is consistent with muscular pain. She is in pain management. We will treat with IV morphine for her pain and reassess. Prior records were reviewed. She did have surgery in April. She had a total left hip arthroplasty for osteoarthritis. History & Record Review Additional record(s) reviewed:: Prior inpatient record, Prior outpatient record and Prior ED visit Radiography Diagnostic Testing: Clinical Impression(s) from Imaging Studies Hip/Pelvis X-Ray 05/27/22 14:50 IMPRESSION: Status post left total hip replacement. Stable 1 cm bone island in the superior aspect of the right sacrum. Electronically Signed: Eric Spencer MD at 15:31 EDT , Treatment and Re-Evaluation Narrative: Patient was reassessed at 2124. She appears comfortable lying in bed. When she attempts to move she has significant pain. She was given additional dose of Dilaudid. If she is unable to ambulate will contact hospitalist for observation status and physical therapy evaluation. I was informed at 2130 that patient was only able to take 2 steps. She needed assistance. Therefore will contact hospitalist for admission/observation for inability to ambulate. Discharge Plan Triage Chief Complaint: Lower Extremity Injury ED Provider: [facility] Dx/Rx/DC Orders Prescriptions: No Action duloxetine 30 mg capsule,delayed release(DR/EC) 90 mg PO DAILY nitroglycerin 0.4 mg tablet, sublingual 0.4 mg sublingual Q5-15M PRN (Reason: chest pain) Qty: 25 6RF Rx Instructions: do not exceed 3 doses per episode hydrochlorothiazide 25 mg tablet 25 mg PO DAILY Qty: 1 0RF aspirin 81 mg Tablet,Delayed Release (Dr/Ec) 81 mg PO DAILY metoclopramide HCl [Reglan] 5 mg tablet 5 mg PO BID vitamin E (dl, acetate) 180 mg (400 unit) capsule 360 mg PO DAILY (DME) True Metrix Glucose Test Strip Strip See Rx Instructions .Route Rx Instructions: 3 times per day betamethasone dipropionate 0.05 % cream 1 applic topical DAILY metoprolol tartrate 25 mg tablet 75 mg PO BID Rx Instructions: Takes 25 mg + 50 mg tablet to + 75 mg BID (DME) Dexcom G6 Sensor Device See Rx Instructions .ROUTE .MEDSUPPLY Rx Instructions: 1 sensor every 10 days
[2022-05-27] MEDS: Ondansetron 4 MG/2 ML Vial IV (18:16)
[2022-05-27] MEDS: Morphine 4 MG/ML Syringe IV (18:16)
--- NOTE | 2022-05-27 21:41 | HP.PCM_ITS ---
HPI - General General Date of Admission: 05/27/22 Date of Service: 05/27/22 Chief Complaint: L hip pain, fall. HPI Narrative The patient is a 61 y/o F w/ PMHx: MGUS, CAD s/p PCI x 9 secondary to failed CABG x 4 (recent negative stress testing 07/2017), Hypertension, Hyperlipidemia, Depression and Anxiety, Ulcerative Colitis s/p coloproctectomy w/ ostomy complicated by frequent high output w/ recent admission 03/14/22-03/16/22 secondary to associated RALPH on CKD stage IV, Diabetes mellitus type II with chronic neuropathy and associated gastroparesis, Obesity, CKD stage IV, COPD w/ chronic respiratory failure, Former tobacco use, ANKITA on BIPAP q HS who presents to the [facility] ED on 05/27/22 with history of onset over the last several months inte rmittent discomfort primarily to the left buttock and thigh region which comes on suddenly especially with any exertion or activities and is severe sharp stabbing 10 out of 10 however she notes it is significantly worsened over the last 24 to 48 hours with pain in the left hip with severe 10 out of 10 pain with any activity attempts with debilitating pain causing her left leg to give out with no associated specific paresthesias or focal deficits, improved with rest prompting eventual ED evaluation. Primary of records patient status post 04/22/2021 CT-guided MAKOplasty assisted left total hip arthroplasty secondary to history of left hip avascular necrosis performed per Dr. Camacho. Work-up in the ED included T96.9, heart rate 69, BP 109/62, respiratory rate 15, 98% room air, CBC with WC 9.7, hemoglobin 12.2, platelet 154 without marked shift, BMP with chloride 110, BUN/creatinine 35/1.94, glucose 121, unremarkable hepatic profile aside alk phos 154, plain film of the hip and pelvis with evidence status post left total hip replacement with a stable 1 cm bone island in the superior aspect of the right sacrum with no acute osseous findings. In the ED patient ministered Zofran 4 mg IV x1 as well as Dilaudid 0.5 mg IV x1, morphine 4 mg IV x1. [facility] Medical History (Updated 05/28/22 @ 03:[address] Valentine Carreno MD) Anxiety Arthritis Avascular necrosis of bone of left hip BiPAP (biphasic positive airway pressure) dependence BMI 31.0-31.9,adult CAD (coronary artery disease) Cardiology follow-up encounter Cellulitis, abdominal wall Chronic back pain Chronic diastolic (congestive) heart failure Chronic narcotic use Chronic respiratory failure CKD (chronic kidney disease), stage IV COPD (chronic obstructive pulmonary disease) Depression with anxiety Diabetic gastroparesis DM2 (diabetes mellitus, type 2) Elevated anti-tissue transglutaminase (tTG) IgA level Fatty liver FCHL (familial combined hyperlipidemia) Former smoker Gastric reflux Gastroparesis High output ileostomy History of COVID-19 Hx of diabetic gastroparesis Hyperlipidemia Hypertension Ileostomy present Insulin dependent diabetes mellitus Liver mass Loss of hearing Menieres disease MGUS (monoclonal gammopathy of unknown significance) Migraine headache Myoclonic jerking Non-alcoholic fatty liver disease Nonalcoholic steatohepatitis Obesity Obstructive sleep apnea Psoriasis Secondary pulmonary arterial hypertension Short bowel syndrome Smoking greater than 20 pack years Ulcerative colitis Vitamin D deficiency Walker as ambulation aid Wears glasses Home Medications aspirin 81 mg tablet,delayed release 81 mg PO DAILY Check with primary doctor 04/08/21 [History Last Taken 05/27/22] diphenoxylate-atropine 2.5 mg-0.025 mg tablet (Lomotil) 1 tab PO TID PRN diarrhea #90 tabs 05/19/21 [Rx Last Taken 05/17/22] atorvastatin 80 mg tablet 80 mg PO QHS CHOLESTEROL LOWERING #90 tabs 08/29/21 [Rx Last Taken 05/26/22] duloxetine 30 mg capsule,delayed release 90 mg PO DAILY Check with primary doctor 10/06/21 [History Last Taken 05/27/22] vitamin E (dl, acetate) 180 mg (400 unit) capsule 360 mg PO DAILY vitamin 10/15/21 [History Last Taken 05/27/22] hyoscyamine sulfate 0.125 mg tablet 0.125 mg PO Q6H PRN dyspepsia #60 tabs 11/04/21 [Rx Last Taken 05/25/22] ondansetron 4 mg disintegrating tablet 4 mg PO Q6H PRN nausea and vomiting #90 tabs 11/04/21 [Rx Last Taken 05/26/22] Insulin Basal Pump (Pt's Own) [Pump, Basal] 11/15/21 [History Last Taken Unknown] Wheel Chair 11/15/21 [History Last Taken Unknown] betamethasone dipropionate 0.05 % topical cream 1 applic topical DAILY PRN Itching 11/15/21 [History Last Taken 05/20/22] blood sugar diagnostic (True Metrix Glucose Test Strip) 11/15/21 [History Last Taken Unknown] blood-glucose meter,continuous (Dexcom G6 Record Label Internship) 11/15/21 [History Last Taken Unknown] blood-glucose sensor (Dexcom G6 Sensor device) 11/15/21 [History Last Taken Unknown] blood-glucose transmitter (Dexcom G6 Transmitter device) 11/15/21 [History Last Taken Unknown] metoprolol tartrate 25 mg tablet 75 mg PO BID bp 11/15/21 [History Last Taken 05/27/22] pen needle, diabetic 32 gauge x 5/32 (BD Ultra-Fine Key Pen Needle) 11/15/21 [History Last Taken Unknown] buprenorphine 10 mcg/hour weekly transdermal patch 1 patch transdermal Q7D pain 11/18/21 [History Last Taken 05/23/22] loperamide 2 mg capsule (Imodium A-D) 2 mg PO Q6H PRN loose stool #20 caps 11/18/21 [Rx Last Taken 05/14/22] nitroglycerin 0.4 mg sublingual tablet 0.4 mg sublingual Q5-15M PRN chest pain #25 tabs 11/20/21 [Rx Last Taken Unknown] isosorbide dinitrate 30 mg tablet 30 mg PO BID heart #60 tabs 01/16/22 [Rx Last Taken 05/27/22] insulin pump cart,automated,BT (Omnipod 5 G6 Pods (Gen 5) subcutaneous cartridge) #45 ea 02/09/22 [Rx Last Taken Unknown] ostomy supplies #1 ea 02/13/22 [Rx Last Taken Unknown] dicyclomine 10 mg capsule 20 mg PO BREAKFAST Check with primary doctor 03/14/22 [History Last Taken 05/27/22] trazodone 50 mg tablet 50 mg PO QHS sleep 03/14/22 [History Last Taken 05/26/22] clopidogrel 75 mg tablet 75 mg PO DAILY Check with primary doctor #90 tabs 03/16/22 [Rx Last Taken 05/27/22] dapagliflozin 10 mg tablet (Farxiga) 10 mg PO DAILY #90 tabs 03/19/22 [Rx Last Taken 05/27/22] ursodiol 300 mg capsule 300 mg PO BID Check with primary doctor #180 caps 03/19/22 [Rx Last Taken 05/27/22] metoclopramide HCl 5 mg tablet (Reglan) 5 mg PO BID reflux 04/03/22 [History Las t Taken 05/25/22] pantoprazole 40 mg tablet,delayed release See Rx Instructions .Route .COMPLEX #28 tabs 04/07/22 [Rx Last Taken 05/27/22] insulin lispro 200 unit/mL (3 mL) subcutaneous pen (Humalog KwikPen U-200 Insulin) 100 unit (0.5 mL) subcut .continuous #45 mL 04/15/22 [Rx Last Taken 05/28/22] pregabalin 75 mg capsule 75 mg PO BID pain #60 caps 05/08/22 [Rx Last Taken 05/27/22] Bentyl 10 mg OTHER QHS Check with primary doctor 05/27/22 [History Last Taken 05/26/22] tramadol 50 mg tablet 50 mg PO Q6H PRN Pain 05/28/22 [History Last Taken 05/27/22] Allergy/AdvReac Type Severity Reaction Status Date / Time ciprofloxacin Allergy Intermediate Swelling Verified 05/27/22 14:45 cinnamon [Cinnamon] Allergy Anaphylaxis Verified 05/27/22 14:45 Influenza Virus Vaccines Allergy Shortness Verified 05/27/22 14:45 of breath liraglutide [From Victoza] Allergy Anaphylaxis Verified 05/27/22 14:45 metformin [From Glucophage] Allergy NEEDS Verified 05/27/22 14:45 FOLLOW-UP metronidazole [From Flagyl] Allergy Hives Verified 05/27/22 14:45 Metronidazole HCl Allergy Hives Verified 05/27/22 14:45 [From Flagyl] Penicillins Allergy Hives Verified 05/27/22 14:45 Sulfa (Sulfonamide Allergy Hives Verified 05/27/22 14:45 Antibiotics) aripiprazole [From Abilify] AdvReac hallucinati Verified 05/27/22 14:45 ons codeine AdvReac Stops Verified 05/27/22 14:45 Ileostomy metformin HCl AdvReac Nausea Verified 05/27/22 14:45 [From Glucophage] ranolazine AdvReac Nausea/Vom/ Verified 05/27/22 14:45 Diarrhea Vviusus-ORS-PrW Reductase AdvReac Nausea/joints Verified 05/27/22 14:45 Inhibitor ache [Lxzelyb-Ycl-Pmf Reductase Inhibitor] Family History Mother CVA (cerebral vascular accident) Diabetes Brother Heart disease of CAD at 65 Myocardial infarction Pancreatitis Father Cancer lymphomia Lymphoma Grandmother Myocardial infarction of [place] in her 70s Sister COPD (chronic obstructive pulmonary disease) Surgical History H/O colectomy H/O coronary artery bypass surgery (05/18/12) H/O sinus surgery H/O total hysterectomy history closed fissure History of History of cardiac catheterization History of cholecystectomy History of coronary artery stent placement (01/12/18) ileostomy Ileostomy status left thumb surgery Status post total hip replacement, left Social History household members: none Smoking Status: Former smoker quit date: 03/08/12 how long ago did patient quit smoking: quit in 2012; 0.5-1ppd x 30yrs alcohol intake: never substance use type: does not use diet: diabetic caffeine: No eating out: 1-3 times/week what type of physical activity do you participate in: none seatbelt use: always do you feel safe at home: Yes ROS ROS Narrative Admission Review of Systems: CONSTITUTIONAL: No weight loss, fever, chills, + weakness or fatigue. HEENT: Eyes: No visual loss, blurred vision, double vision or yellow sclerae. Ears, Nose, Throat: No hearing loss, sneezing, congestion, runny nose or sore throat. SKIN: No rash or itching, lesions, wounds. CARDIOVASCULAR: No chest pain, chest pressure or chest discomfort, palpitations, edema, orthopnea, syncopal events. RESPIRATORY: + Chronic exertional dyspnea, chronic cough without marked sputum production. No marked wheezing, hemoptysis. GASTROINTESTINAL: No anorexia, nausea, vomiting or diarrhea, abdominal pain, melena, BRBPR. GENITOURINARY: No dysuria, frequency, urgency or retention. NEUROLOGICAL: No headache, dizziness, syncope, paralysis, ataxia, numbness or tingling in the extremities, focal weakness, change in bowel or bladder control, seizure. MUSCULOSKELETAL: + muscle, back pain, joint pain or stiffness. HEMATOLOGIC: + anemia, bleeding or bruising. LYMPHATICS: No enlarged nodes. No history of splenectomy. PSYCHIATRIC: + history of depression or anxiety. ENDOCRINOLOGIC: No reports of sweating, cold or heat intolerance. No polyuria or polydipsia. ALLERGIES: + history of hives, rhinitis. Vital Signs Vital Signs Vital Signs: 05/27/22 14:43 Temperature 96.9 F L Temperature Source Temporal Pulse Rate 69 Respiratory Rate 15 Blood Pressure 109/62 Blood Pressure Mean 77 Pulse Ox 98 Oxygen Delivery Method Room Air Weight Weight: 207 lb 1.6 oz Body Mass Index (BMI) 32.4 Physical Exam Narrative Physical Examination: General: Awake, alert, oriented x 3 and cooperative, seated upright in the ED bed, with any movement significant severe 10 out of 10 left hip pain as well as into the buttock and thigh region. Skin: Normal color, normal turgor, no icterus, no cyanosis. HEENT: AT/NC, EOMI, PERRLA, moderately dry MM, no carotid bruits or JVD noted. Lungs: Diminished, greater bases, appropriate effort, occasional end expiratory wheeze, no rales or rhonchi. Heart: Currently regular rate and rhythm; no gallop, rub audible. Abdomen: Soft, obese, NTTP, ND, distant normal BS, no HSM. Extremities: No cyanosis, no clubbing, no marked peripheral edema. Neurological: Patient awake, alert, oriented as noted, cognitive function intact; pupils equally reactive to light and accommodation, cranial nerves II- XII grossly normal, moving all 4 extremities except extremely limited lower extremity movement secondary to pain elicited to the left hip and leg, strength accordingly moderately to severely globally decreased. Psychiatric: Affect appears fatigued, uncomfortable following evaluation, no acute evidence of depressive or anxiety feelings. Results Lab / Micro Data Result Diagrams: 05/27/22 22:05 05/27/22 22:05 Radiology Impression Hip/Pelvis X-Ray 05/27/22 14:50 IMPRESSION: Status post left total hip replacement. Stable 1 cm bone island in the superior aspect of the right sacrum. Electronically Signed: Eric Spencer MD at 15:31 EDT , Assessment & Plan Assessment/Plan (1) Left hip pain: PLAN: Plan The patient is a 61 y/o F w/ PMHx: MGUS, CAD s/p PCI x 9 secondary to failed CABG x 4 (recent negative stress testing 07/2017), Hypertension, Hyperlipidemia, Depression and Anxiety, Ulcerative Colitis s/p coloproctectomy w/ ostomy complicated by frequent high output w/ recent admission 03/14/22-03/16/22 secondary to associated RALPH on CKD stage IV, Diabetes mellitus type II with chronic neuropathy and associated gastroparesis, Obesity, CKD stage IV, COPD w/ chronic respiratory failure, Former tobacco use, ANKITA on BIPAP q HS who presents to the [facility] ED on 05/27/22 with history of onset over the last several months intermittent discomfort primarily to the left buttock and thigh region which comes on suddenly especially with any exertion or activities and is severe sharp stabbing 10 out of 10 however she notes it is significantly worsened over the last 24 to 48 hours with pain in the left hip with severe 10 out of 10 pain with any activity attempts. #1. Intractable left hip pain, unclear specific etiology: Given intractable pain with several IV pain regimen administered in the ED without marked improvement will admit to medical surgical floor, maintain on fall precautions, will initiate lidocaine patch, gabapentin, oral and IV as needed narcotic t herapies, deferring any NSAID therapies given advanced kidney disease of note, obtain REGINALDO and PVR given certainly claudication could be partially an etiology for this presentation, given extensive prior surgical intervention for Dr. Camacho will request his evaluation, PTassessment as well as case management for discharge planning. #2. Ulcerative colitis status post colon proctectomy with ostomy: Patient with significant history is chronically with high put output with acute kidney injury on chronic kidney disease, recent discharge 03/16/2022 following similar presentation with gastroenterology consultation at that time, will continue cholestyramine and Metamucil regimen, monitor output. #3. Diabetes mellitus type II with insulin pump with associated gastroparesis and chronic neuropathy: Patient with chronic insulin pump in place, following closely with endocrinology with last visit noted 04/30/2022, will continue insulin pump per home regimen with Accu-Cheks with insulin sliding scale per her home insulin pump only, maintain on ADA diet and encourage continued lifestyle and diet changes, continue as needed Reglan regimen. Most recent hemoglobin A1c noted 04/30/2022 6.8%. Continue patient pregabalin regimen. #4. MGUS: Patient with history of low level IgA lambda monoclonal protein on routine blood testing with no evidence of endorgan damage from multiple myeloma with evidence of slow progressive CKD but certainly other disease history to explain it, following with Dr. Barajas with last visit noted 01/06/2022 with at that time plan for skeletal survey and if any obvious lytic lesions plan bone marrow biopsy otherwise would continue routine 6-month follow-up assessments. #5. Chronic Kidney Disease Stage IV: Admission BUN/Cr 35/1.94, baseline renal function primarily 1.6-2.0 repeat BMP in AM. #6. CAD: s/p PCI x 9 secondary to failed CABG x 4, recent 07/2017 stress testing which was unremarkable, frequent presentations for chest pain, maintain on asa, Plavix, metoprolol, statin therapy. #7. Hypertension: Continue home regimen including metoprolol and isosorbide with as needed hydralazine. #8. Hyperlipidemia: Continue home statin regimen. #9. Chronic COPD with chronic hypoxic respiratory failure: Patient with supplemental 2 L nasal cannula with exertion per history, we will temporarily hold home inhalers in the interim transition to ATC DuoNeb therapy, PRN albuterol, HOB, IS parameters. #10. Depression/Anxiety: Maintain on home duloxetine regimen. #11. Chronic pain syndrome: Maintain on chronic pregabalin and buprenorphine transdermal regimen. #12. Obesity: Weight loss and lifestyle changes encouraged. #13. Former tobacco usage: Encourage continued tobacco cessation. #14. ANKITA: BiPAP nightly. #15. DVT prophylaxis: Heparin. #16. CODE status: Patient HCPOA is her significant other/fianc? Azucena and living will is currently in place. Discussed CODE status at length including difference between FULL code, DNR-CCA and DNR-CC status. Following discussions about the differences in these status, requested Full Code status. Advanced Care Planning Face to Face Time: 16 minutes. Admission Evaluation Time spent evaluating chart, patient history, patient evaluation, care planning and discussion with specialists: 60 minutes. Charges/Coding Visit Charges Inpatient E&M: 23765 Init Hosp L2 Procedures Hospitalists Procedures: 64414 Advncd Care Plan 30 Min
[2022-05-27] MEDS: HYDROmorphone 0.5 MG/0.5 ML SYRINGE IV (21:48)
[2022-05-27 21:51] VITALS: BP 148/59; PULSE 71; RESP 16; TEMP 36.6; O2SAT 96
[2022-05-27 22:09] LABS: Absolute Lymphocyte Count 2.74 X10^3/uL (0.83-4.51); Absolute Neutrophil Count 5.8 X10^3/uL (2.0-7.7); Basophil# 0.07 X10^3/uL; Basophil% 0.7 % (0-1); Eosinophil# 0.26 X10^3/uL; Eosinophils% 2.7 % (0-5); Hematocrit 39.2 % (37-47); Hemoglobin 12.2 g/dL (12.0-15.0); Lymphocyte # 2.74 X10^3/ul (0.83-4.51); Lymphocyte % 28.2 % (19-41); Mean Corp Hgb Conc 31.1 g/dL (32-36); Mean Corpuscular Hgb 27.8 pg (27.0-32.0); Mean Corpuscular Volume 89.3 fL (81-99); Mean Platelet Vol. 12.2 fl (6.2-12.0); Monocyte# 0.79 X10^3/uL; Monocyte% 8.1 % (0-10); NRBC Flagged by Analyzer 0 % (0-5); Neutrophil % 59.6 % (47-70); Platelet Count 154 K/mm3 (150-450); RBC Distribution Width CV 15.2 % (11.6-14.6); RBC Distribution Width SD 49.6 fl (35.1-43.9); Red Blood Count 4.39 M/mm3 (4.2-5.4); White Blood Count 9.7 K/mm3 (4.4-11.0)
[2022-05-27 22:26] LABS: ALB/GLOB Ratio 0.9 RATIO (0.9-2.4); AST(SGOT) 22 U/L (15-37); Alanine Aminotransfer ALT/SGPT 17 U/L (13-56); Albumin, Serum 3.3 g/dL (3.2-5.0); Alkaline Phosphatase 154 U/L (45-117); Anion Gap 5 (5-15); BUN 35 mg/dL (7-18); Chloride 110 mmol/L (98-107); Creatinine, Serum 1.94 mg/dL (0.55-1.02); EST Glomerular Filtration Rate 28 mL/min (>60); Est Glom Filt Rate - Afr Amer 33 mL/min (>60); Estimated Creatinine Clearance 28.86 ml/min; Globulin 3.7 g/dL (2.2-4.2); Glucose 121 mg/dL (74-106); Potassium 4.6 mmol/L (3.5-5.1); Sodium Level 139 mmol/L (136-145)
[2022-05-27 23:19] VITALS: BMI 31.4
--- NOTE | 2022-05-27 23:22 | ART_ITS ---
Reason For Study: Claudication Procedure A bilateral lower extremity continuous wave Doppler with analog waveform analysis and ankle brachial indexes. Left Segmental Pressures Left brachial= 104mmHg. Left posterior tibial artery = 111mmHg. Left dorsalis pedis artery = 102mmHg. Left digit = 113 mmHg. The left posterior tibial artery waveforms are biphasic. The left dorsalis pedis waveforms are biphasic. Right Segmental Pressures Right brachial= 106mmHg. Right posterior tibial artery = 102mmHg. Right dorsalis pedis artery = 95mmHg. Right digit = 98 mmHg. The right posterior tibial artery waveforms are biphasic. The right dorsalis pedis waveforms are biphasic. Indices The right ankle brachial index by the posterior tibial artery is 0.96. The right ankle brachial index by the dorsalis pedis is 0.90. The right digital-brachial index is 0.92. The left ankle brachial index by the posterior tibial artery is 1.05. The left ankle brachial index by the dorsalis pedis is 0.96. The left digital-brachial index is 1.07. VL/Ankle Brachial Index Interpretation Summary Biphasic Doppler waveforms are noted at ankle level bilaterally. Pulse-volume r ecordings appear satisfactory at ankle and digital levels bilaterally. Resting ankle-brachial in dices are normal bilaterally. Digital-brachial indices are normal bilaterally. There is no evidence of significant arterial occlusive disease in the lower ext remities bilaterally. Ordering Physician: Valentine Carreno Referring Physician: SHANNAN MADRIGAL MD Performed By: Alex Padilla, RVT
[2022-05-27 23:45] VITALS: BP 120/68; PULSE 64; RESP 16; TEMP 36.9; O2SAT 95
--- NOTE | 2022-05-27 23:49 | CPS ---
PT REFUSED PAP THERAPY. PT STATED THAT SHE IS SUPPOSED TO WEAR BIPAP AT NIGHT CURRENTLY, BUT DOES NOT AND DOES NOT WISH TO WEAR WHILE HERE.
[2022-05-28] VITALS (10 sets, daily range): BP systolic 109–143; BP diastolic 56–86; PULSE 64–70; RESP 12–20; TEMP 36.5–37; O2SAT 93–97; BMI 31.8
[2022-05-28] MEDS: Pregabalin 75 MG Capsule PO ×3 (00:47→21:52)
[2022-05-28] MEDS: 0.9% Saline Lock 10 ML Syringe IV (00:47)
[2022-05-28] MEDS: Atorvastatin Calcium 80 MG Tablet PO ×2 (00:47→21:38)
[2022-05-28] MEDS: Heparin Injection (Vial) 5,000 UNIT/ML VIAL 5000 UNIT SC ×3 (00:47→21:39)
[2022-05-28] MEDS: Metoprolol Tartrate 25 MG Tablet 75 MG PO ×3 (00:48→21:41)
[2022-05-28] MEDS: Isosorbide DN 30 MG Tablet PO ×3 (00:48→21:40)
[2022-05-28] MEDS: Metoclopramide 5 MG TABLET PO ×3 (00:49→21:38)
[2022-05-28] MEDS: Lidocaine 5% Patch 1 PATCH TOPICAL ×2 (00:49→08:28)
[2022-05-28] MEDS: traZODone 50 MG Tablet PO ×2 (00:49→21:39)
[2022-05-28] MEDS: oxyCODONE 5 MG Tablet PO ×3 (00:55→17:18)
[2022-05-28 00:56] LABS: Bedside Glucose 96 mg/dL (74-106)
[2022-05-28 05:46] LABS: Absolute Lymphocyte Count 2.93 X10^3/uL (0.83-4.51); Absolute Neutrophil Count 4.9 X10^3/uL (2.0-7.7); Basophil# 0.07 X10^3/uL; Basophil% 0.8 % (0-1); Eosinophil# 0.27 X10^3/uL; Hematocrit 41.1 % (37-47); Hemoglobin 12.6 g/dL (12.0-15.0); Lymphocyte # 2.93 X10^3/ul (0.83-4.51); Lymphocyte % 32.4 % (19-41); Mean Corp Hgb Conc 30.7 g/dL (32-36); Mean Corpuscular Hgb 27.6 pg (27.0-32.0); Mean Corpuscular Volume 89.9 fL (81-99); Mean Platelet Vol. 12.2 fl (6.2-12.0); Monocyte# 0.77 X10^3/uL; Monocyte% 8.5 % (0-10); NRBC Flagged by Analyzer 0 % (0-5); Neutrophil # 4.93 X10^3/uL (2.7-7.7); Neutrophil % 54.4 % (47-70); Platelet Count 166 K/mm3 (150-450); RBC Distribution Width CV 15.5 % (11.6-14.6); RBC Distribution Width SD 50.5 fl (35.1-43.9); Red Blood Count 4.57 M/mm3 (4.2-5.4); White Blood Count 9.1 K/mm3 (4.4-11.0)
--- NOTE | 2022-05-28 06:17 | NURSING ---
Addendum entered by Jamila Mann 05/28/22 06:41: This RN reported these figures to Dr. Carreno. She said this is ok. The patient told her that it normally differs about 20 points. We can use her pump and monitoring system. Original Note: Patient has own insulin pump and continuous blood sugar monitoring system. At 0030 patient's device was 123, ours was 96. At 0600 patient's device was 136, ours was 108.
[2022-05-28 06:25] LABS: ALB/GLOB Ratio 0.8 RATIO (0.9-2.4); AST(SGOT) 15 U/L (15-37); Alanine Aminotransfer ALT/SGPT 18 U/L (13-56); Albumin, Serum 3.2 g/dL (3.2-5.0); Alkaline Phosphatase 150 U/L (45-117); Anion Gap 7 (5-15); BUN 34 mg/dL (7-18); BUN/Creat Ratio 17.2 RATIO (10-20); Chloride 108 mmol/L (98-107); Creatinine, Serum 1.98 mg/dL (0.55-1.02); EST Glomerular Filtration Rate 27 mL/min (>60); Est Glom Filt Rate - Afr Amer 33 mL/min (>60); Estimated Creatinine Clearance 28.28 ml/min; Globulin 3.8 g/dL (2.2-4.2); Glucose 79 mg/dL (74-106); Potassium 3.8 mmol/L (3.5-5.1); Sodium Level 138 mmol/L (136-145)
[2022-05-28] MEDS: Acetaminophen 325 MG Tablet 650 MG PO (07:07)
[2022-05-28 07:30] LABS: Bedside Glucose 108 mg/dL (74-106)
[2022-05-28] MEDS: Ipratropium/Albuterol Sulfate 3 ML AMPUL.NEB INHALATION ×3 (07:30→19:30)
--- NOTE | 2022-05-28 08:12 | PN.HOSP_ITS ---
Reason for Visit Reason for Visit: Diagnoses Pain in left hip (05/27/22) Subjective Subjective Follow-up for severe right lower extremity pain with spasm. Objective Data Objective Data Vital Signs: Vital Signs Temp Pulse Resp BP Pulse Ox O2 Del Method 97.7 F L 66 18 111/61 97 Room Air 05/28/22 06:15 05/28/22 07:21 05/28/22 07:21 05/28/22 06:15 05/28/22 07:21 05/28/22 07:21 Oxygen Delivery Method Room Air Weight: 203 lb 4.259 oz Body Mass Index (BMI) 31.8 Intake & Output: Intake and Output for Last 24 Hours 05/26/22 05/27/22 05/28/22 23:59 23:59 23:59 Output Total 1000 / 1000 Balance -1000 / -1000 Lab / Micro Data Result Diagrams: 05/28/22 05:11 05/28/22 05:11 Labs: Laboratory Results - last 24 hr 05/27/22 22:05: WBC 9.7, RBC 4.39, Hgb 12.2, Hct 39.2, MCV 89.3, MCH 27.8, MCHC 31.1 L, RDW Std Deviation 49.6 H, RDW Coeff of Jan 15.2 H, Plt Count 154, MPV 12.2 H, Immature Gran % (Auto) 0.700, Neut % (Auto) 59.6, Lymph % (Auto) 28.2, Citrus % (Auto) 8.1, Eos % (Auto) 2.7, Baso % (Auto) 0.7, Absolute Neuts (auto) 5.8, Absolute Lymphs (auto) 2.74, Nucleated RBC % 0 05/27/22 22:05: Sodium 139, Potassium 4.6, Chloride 110 H, Carbon Dioxide 24.0, Anion Gap 5, BUN 35 H, Creatinine 1.94 H, Estim Creat Clear Calc 28.86, Est GFR (MDRD) Af Amer 33 L, Est GFR (MDRD) Non-Af 28 L, BUN/Creatinine Ratio 18.0, Glucose 121 H, Calcium 9.0, Total Bilirubin 0.80, AST 22, ALT 17, Alkaline Phosphatase 154 H, Total Protein 7.0, Albumin 3.3, Globulin 3.7, Albumin/Globulin Ratio 0.9 05/28/22 00:33: POC Glucose 96 05/28/22 05:11: WBC 9.1, RBC 4.57, Hgb 12.6, Hct 41.1, MCV 89.9, MCH 27.6, MCHC 30.7 L, RDW Std Deviation 50.5 H, RDW Coeff of Jan 15.5 H, Plt Count 166, MPV 12.2 H, Immature Gran % (Auto) 0.900, Neut % (Auto) 54.4, Lymph % (Auto) 32.4, Citrus % (Auto) 8.5, Eos % (Auto) 3.0, Baso % (Auto) 0.8, Absolute Neuts (auto) 4.9, Absolute Lymphs (auto) 2.93, Nucleated RBC % 0 05/28/22 05:11: Sodium 138, Potassium 3.8, Chloride 108 H, Carbon Dioxide 23.0, Anion Gap 7, BUN 34 H, Creatinine 1.98 H, Estim Creat Clear Calc 28.28, Est GFR (MDRD) Af Amer 33 L, Est GFR (MDRD) Non-Af 27 L, BUN/Creatinine Ratio 17.2, Glucose 79, Calcium 9.0, Total Bilirubin 0.70, AST 15, ALT 18, Alkaline Ph osphatase 150 H, Total Protein 7.0, Albumin 3.2, Globulin 3.8, Albumin/Globulin Ratio 0.8 L 05/28/22 06:01: POC Glucose 108 H Radiography Diagnostic Testing: Radiology Impression Hip/Pelvis X-Ray 05/27/22 14:50 IMPRESSION: Status post left total hip replacement. Stable 1 cm bone island in the superior aspect of the right sacrum. Electronically Signed: Eric Spencer MD at 15:31 EDT , Physical Exam Narrative Patient stated she had mild pain around left hip area and then her leg gave out and fell down. After a fall her pain was severe with spasm in buttock area with sometimes radiating to whole lower extremity. Physical exam General: Alert, Oriented x3, Cooperative HEENT: Atraumatic, PERRLA, EOMI, Normocephalic Oral: Oral mucosa moist. No Gingival or Mucosal Lesions/ Ulcerations Neck: Supple, No JVD, Negative Carotid Bruits Lungs: Air entry diminished in bilateral lung bases. No crepitation/rhonchi Cardiovascular: Regular rate, Regular Rhythm, Normal S1, Normal S2, no murmur. Abdomen: Bowel Sounds Present, Soft, Non Tender, Non-Distended. Ileostomy bag. : No renal angle tenderness. No suprapubic tenderness. Extremities: No edema, Capillary Refill Less than 3 Seconds Skin: No rashes, No breakdown Musculoskeletal: ROM severely limited in all planes over left hip joint. Tenderness present over left buttock region, mild groin and posterior thigh. Neurological: Cranial nerves II-XII grossly intact, DTR 2+/4 Psych/Mental Status: Flat affect. Assessment & Plan Assessment/Plan (1) Left hip pain: PLAN: Plan The patient is a 61 y/o F with recent left total hip arthroplasty by Dr. Camacho in April 2022 was admitted with severe left buttock pain with radiation to posterior left thigh and at x2 whole left lower extremity. Denies paresthesia or other sensation. Denies bowel bladder new dysfunction or saddle paresthesia. Denies foot drop. #1. Intractable left hip pain, unclear specific etiology: Patient is admitted in PCU and MedSurg status. Patient on Lyrica and Cymbalta at home and gabapentin was added here. Patient on Subutex patch at home which is nonformulary therefore changed to lidocaine patch. Patient also on muscle relaxant, tizanidine. #2. Ulcerative colitis status post colon proctectomy with ileostomy: Patient with significant history is chronically with high put output with acute kidney injury on chronic kidney disease, recent discharge 03/16/2022 following similar presentation with gastroenterology consultation at that time, continue cholestyramine, ursodiol, Lomotil and hyoscyamine. #3. CKD stage G4: Patient baseline creatinine is around 2.0, varies from 1.8- 2.15, estimated creatinine clearance 31 mL/min.? Patient creatinine 1.98 at baseline. CAD: s/p PCI x 9 secondary to failed CABG x 4, recent 07/2017 stress testing which was unremarkable, frequent presentations for chest pain, maintain on asa, Plavix, metoprolol, statin therapy. 4.? Diabetes mellitus type 2 with gastroparesis: Glucose is controlled 108. Glu cose 79 BMP. 5.? History of NAFLD and fatty liver: ALT AST normal.? Current phosphatase 154, total bili 1.2.? Patient follows Dr. Andino.? Patient had liver biopsy in December 2020, macrovesicular stasis disease, F2/F3 by liver biopsy and elastography.? No cirrhosis.? Patient also has diabetes gastroparesis.? On ursodiol, vitamin D, vitamin D, statin and aspirin. 6.?MGUS: Patient with history of low level IgA lambda monoclonal protein on routine blood testing with no evidence of endorgan damage from multiple myeloma with evidence of slow progressive CKD but certain #7. Hypertension: Continue home regimen including metoprolol and isosorbide with as needed hydralazine. #8. Hyperlipidemia: Continue home statin regimen. #9. Chronic COPD with chronic hypoxic respiratory failure: Patient with supplemental 2 L nasal cannula with exertion per history DuoNeb therapy, PRN albuterol, HOB, IS parameters. #10. Depression/Anxiety: Maintain on home duloxetine regimen. #11. Chronic pain syndrome: Maintain on chronic pregabalin and buprenorphine transdermal regimen. #12. Obesity: Weight loss and lifestyle changes encouraged. #13. Former tobacco usage: Encourage continued tobacco cessation. #14. ANKITA: BiPAP nightly. #15. DVT prophylaxis: Heparin. #16. CODE status: Patient HCPOA is her significant other/fianc? Azucena and living will is currently in place. Discussed CODE status at length including difference between FULL code, DNR-CCA and DNR-CC status. Following discussions a bout the differences in these status, requested Full Code status. Advanced Care Planning Face to Face Time: 16 minutes. Charges/Coding Visit Charges Inpatient E&M: 88642 Subs Hosp L2
[2022-05-28] MEDS: Aspirin E.C. 81 MG Tablet PO (08:23)
[2022-05-28] MEDS: Pantoprazole Sodium 40 MG Tablet PO (08:23)
[2022-05-28] MEDS: DULoxetine Hcl 30 MG Capsule 90 MG PO (08:23)
[2022-05-28] MEDS: Clopidogrel Bisulfate 75 MG Tablet PO (08:25)
[2022-05-28] MEDS: hydroCHLOROthiazide 25 MG Tablet PO (08:25)
[2022-05-28] MEDS: Ursodiol 250 MG Tablet PO ×2 (08:25→21:41)
[2022-05-28] MEDS: Vitamin E 400 UNITS Capsule PO (08:25)
[2022-05-28] MEDS: Gabapentin 100 MG Capsule PO ×3 (08:35→17:21)
[2022-05-28] MEDS: Glucerna Shake 120 ML LIQUID PO (08:35)
--- NOTE | 2022-05-28 08:56 | CT_ITS ---
STUDY: CT SCAN HIP LEFT REASON FOR EXAM: Female, 61 years old. Hip pain post fall -- r/o fx RADIATION DOSAGE (If Supplied By Facility): CTDIvol = ( 14.58 ) mGy, DLP = ( 542.58 ) mGycm. Individualized dose optimization techniques were used for this CT.? TECHNIQUE: Multiple axial tomographic images of the left hip joint were obtained without intravenous contrast demonstration. Coronal and sagittal reconstruction was obtained as well. COMPARISON: Comparison is made with prior radiograph dated May 27, 2022. FINDINGS: The patient is status post left total hip replacement. There is good alignment. Mild degree of postoperative soft tissue changes is seen. CT/Extremity Lower without Contra IMPRESSION: Status post left hip replacement. There is good alignment. Electronically Signed: Eric Spencer MD at 10:03 EDT ,
--- NOTE | 2022-05-28 08:59 | PCM.CONS.GEN ---
Assessment & Plan Assessment/Plan (1) Left hip pain: PLAN: Plan X-rays do not show any fracture, loosening or concern of the femoral or acetabular implants , blood work is nonconcerning for infection, clinically no fevers chills malaise or recent infections, with the severity of her pain and recent fall will order CT to rule out occult fracture. Patient does have chronic back problems advanced L5-S1 degenerative disc disease and Central disc herniation at L4-5 and L5-S1 based on MRI January 2021. and with her pain radiating down to her foot suspect sciatica, she also has significant spasming in her hamstrings and piriformis may benefit from a muscle relaxer and physical therapy. HPI Consult Data Date of Consult: 05/28/22 HPI Narrative HPI Narrative: ASHLEY MÉNDEZ, is a 61 F who presents chronic low back pain with an acute onset of increased pain in her glute that radiated down to her foot mostly posterior but some groin pain this did cause her fall yesterday she has been having spasms in her posterior hamstring and glued area and significant pain with any attempted ambulation. She underwent a left total hip arthroplasty April 2021 without any complications for AVN of the left hip. Denies any recent infections fevers or chills or malaise. Denies any numbness or tingling or burning but does admit to shooting pain down her leg. [facility] Medical History (Updated 05/28/22 @ 03:[address] Valentine Carreno MD) Anxiety Arthritis Avascular necrosis of bone of left hip BiPAP (biphasic positive airway pressure) dependence BMI 31.0-31.9,adult CAD (coronary artery disease) Cardiology follow-up encounter Cellulitis, abdominal wall Chronic back pain Chronic diastolic (congestive) heart failure Chronic narcotic use Chronic respiratory failure CKD (chronic kidney disease), stage IV COPD (chronic obstructive pulmonary disease) Depression with anxiety Diabetic gastroparesis DM2 (diabetes mellitus, type 2) Elevated anti-tissue transglutaminase (tTG) IgA level Fatty liver FCHL (familial combined hyperlipidemia) Former smoker Gastric reflux Gastroparesis High output ileostomy History of COVID-19 Hx of diabetic gastroparesis Hyperlipidemia Hypertension Ileostomy present Insulin dependent diabetes mellitus Liver mass Loss of hearing Menieres disease MGUS (monoclonal gammopathy of unknown significance) Migraine headache Myoclonic jerking Non-alcoholic fatty liver disease Nonalcoholic steatohepatitis Obesity Obstructive sleep apnea Psoriasis Secondary pulmonary arterial hypertension Short bowel syndrome Smoking greater than 20 pack years Ulcerative colitis Vitamin D deficiency Walker as ambulation aid Wears glasses Home Medications aspirin 81 mg tablet,delayed release 81 mg PO DAILY Check with primary doctor 04/08/21 [History Last Taken 05/27/22] diphenoxylate-atropine 2.5 mg-0.025 mg tablet (Lomotil) 1 tab PO TID PRN diarrhea #90 tabs 05/19/21 [Rx Last Taken 05/17/22] atorvastatin 80 mg tablet 80 mg PO QHS CHOLESTEROL LOWERING #90 tabs 08/29/21 [Rx Last Taken 05/26/22] duloxetine 30 mg capsule,delayed release 90 mg PO DAILY Check with primary doctor 10/06/21 [History Last Taken 05/27/22] vitamin E (dl, acetate) 180 mg (400 unit) capsule 360 mg PO DAILY vitamin 10/15/21 [History Last Taken 05/27/22] hyoscyamine sulfate 0.125 mg tablet 0.125 mg PO Q6H PRN dyspepsia #60 tabs 11/04/21 [Rx Last Taken 05/25/22] ondansetron 4 mg disintegrating tablet 4 mg PO Q6H PRN nausea and vomiting #90 tabs 11/04/21 [Rx Last Taken 05/26/22] Insulin Basal Pump (Pt's Own) [Pump, Basal] 11/15/21 [History Last Taken Unknown] Wheel Chair 11/15/21 [History Last Taken Unknown] betamethasone dipropionate 0.05 % topical cream 1 applic topical DAILY PRN Itching 11/15/21 [History Last Taken 05/20/22] blood sugar diagnostic (True Metrix Glucose Test Strip) 11/15/21 [History Last Taken Unknown] blood-glucose meter,continuous ([employer] G6 Oil Pumper) 11/15/21 [History Last Taken Unknown] blood-glucose sensor ([employer] G6 Sensor device) 11/15/21 [History Last Taken Unknown] blood-glucose transmitter ([employer] G6 Transmitter device) 11/15/21 [History Last Taken Unknown] metoprolol tartrate 25 mg tablet 75 mg PO BID bp 11/15/21 [History Last Taken 05/27/22] pen needle, diabetic 32 gauge x 5/32 (BD Ultra-Fine Key Pen Needle) 11/15/21 [History Last Taken Unknown] buprenorphine 10 mcg/hour weekly transdermal patch 1 patch transdermal Q7D pain 11/18/21 [History Last Taken 05/23/22] loperamide 2 mg capsule (Imodium A-D) 2 mg PO Q6H PRN loose stool #20 caps 11/18/21 [Rx Last Taken 05/14/22] nitroglycerin 0.4 mg sublingual tablet 0.4 mg sublingual Q5-15M PRN chest pain #25 tabs 11/20/21 [Rx Last Taken Unknown] isosorbide dinitrate 30 mg tablet 30 mg PO BID heart #60 tabs 01/16/22 [Rx Last Taken 05/27/22] insulin pump cart,automated,BT (Omnipod 5 G6 Pods (Gen 5) subcutaneous cartridge) #45 ea 02/09/22 [Rx Last Taken Unknown] ostomy supplies #1 ea 02/13/22 [Rx Last Taken Unknown] dicyclomine 10 mg capsule 20 mg PO BREAKFAST Check with primary doctor 03/14/22 [History Last Taken 05/27/22] trazodone 50 mg tablet 50 mg PO QHS sleep 03/14/22 [History Last Taken 05/26/22] clopidogrel 75 mg tablet 75 mg PO DAILY Check with primary doctor #90 tabs 03/16/22 [Rx Last Taken 05/27/22] dapagliflozin 10 mg tablet (Farxiga) 10 mg PO DAILY #90 tabs 03/19/22 [Rx Last Taken 05/27/22] ursodiol 300 mg capsule 300 mg PO BID Check with primary doctor #180 caps 03/19/22 [Rx Last Taken 05/27/22] metoclopramide HCl 5 mg tablet (Reglan) 5 mg PO BID reflux 04/03/22 [History Last Taken 05/25/22] pantoprazole 40 mg tablet,delayed release See Rx Instructions .Route .COMPLEX #28 tabs 04/07/22 [Rx Last Taken 05/27/22] insulin lispro 200 unit/mL (3 mL) subcutaneous pen (Humalog KwikPen U-200 Insulin) 100 unit (0.5 mL) subcut .continuous #45 mL 04/15/22 [Rx Last Taken 05/28/22] pregabalin 75 mg capsule 75 mg PO BID pain #60 caps 05/08/22 [Rx Last Taken 05/27/22] Bentyl 10 mg OTHER QHS Check with primary doctor 05/27/22 [History Last Taken 05/26/22] tramadol 50 mg tablet 50 mg PO Q6H PRN Pain 05/28/22 [History Last Taken 05/27/22] Allergy/AdvReac Type Severity Reaction Status Date / Time ciprofloxacin Allergy Intermediate Swelling Verified 05/27/22 14:45 cinnamon [Cinnamon] Allergy Anaphylaxis Verified 05/27/22 14:45 Influenza Virus Vaccines Allergy Shortness Verified 05/27/22 14:45 of breath liraglutide [From Victoza] Allergy Anaphylaxis Verified 05/27/22 14:45 metformin [From Glucophage] Allergy NEEDS Verified 05/27/22 14:45 FOLLOW-UP metronidazole [From Flagyl] Allergy Hives Verified 05/27/22 14:45 Metronidazole HCl Allergy Hives Verified 05/27/22 14:45 [From Flagyl] Penicillins Allergy Hives Verified 05/27/22 14:45 Sulfa (Sulfonamide Allergy Hives Verified 05/27/22 14:45 Antibiotics) aripiprazole [From Abilify] AdvReac hallucinati Verified 05/27/22 14:45 ons codeine AdvReac Stops Verified 05/27/22 14:45 Ileostomy metformin HCl AdvReac Nausea Verified 05/27/22 14:45 [From Glucophage] ranolazine AdvReac Nausea/Vom/ Verified 05/27/22 14:45 Diarrhea Indgted-KDC-LqY Reductase AdvReac Nausea/joints Verified 05/27/22 14:45 Inhibitor ache [Sqnivqf-Dii-Inw Reductase Inhibitor] Family History Mother CVA (cerebral vascular accident) Diabetes Brother Heart disease of CAD at 65 Myocardial infarction Pancreatitis Father Cancer lymphomia Lymphoma Grandmother Myocardial infarction of [place] in her 70s Sister COPD (chronic obstructive pulmonary disease) Surgical History H/O colectomy H/O coronary artery bypass surgery (05/18/12) H/O sinus surgery H/O total hysterectomy history closed fissure History of History of cardiac catheterization History of cholecystectomy History of coronary artery stent placement (01/12/18) ileostomy Ileostomy status left thumb surgery Status post total hip replacement, left Social History household members: none Smoking Status: Former smoker quit date: 03/08/12 how long ago did patient quit smoking: quit in 2012; 0.5-1ppd x 30yrs alcohol intake: never substance use type: does not use diet: diabetic caffeine: No eating out: 1-3 times/week what type of physical activity do you participate in: none seatbelt use: always do you feel safe at home: Yes Physical Exam Const alert, oriented x3 and no apparent distress Extremity Extremity Narrative: She does have a large abdominal pannus, with colostomy bag on the left side, there is no signs of superficial infection in the inguinal fold or anywhere around the hip there is no soft tissue swelling she does have significant spasming of her hamstrings as well as in her glute and low back, she has no gross motor or sensory deficits to the left lower extremity palpable pedal pulse Lab / Micro Data Result Diagrams: 05/28/22 05:11 05/28/22 05:11 Labs: Laboratory Results - last 24 hr 05/27/22 22:05: WBC 9.7, RBC 4.39, Hgb 12.2, Hct 39.2, MCV 89.3, MCH 27.8, MCHC 31.1 L, RDW Std Deviation 49.6 H, RDW Coeff of Jan 15.2 H, Plt Count 154, MPV 12.2 H, Immature Gran % (Auto) 0.700, Neut % (Auto) 59.6, Lymph % (Auto) 28.2, [place] % (Auto) 8.1, Eos % (Auto) 2.7, Baso % (Auto) 0.7, Absolute Neuts (auto) 5.8, Absolute Lymphs (auto) 2.74, Nucleated RBC % 0 05/27/22 22:05: Sodium 139, Potassium 4.6, Chloride 110 H, Carbon Dioxide 24.0, Anion Gap 5, BUN 35 H, Creatinine 1.94 H, Estim Creat Clear Calc 28.86, Est GFR (MDRD) Af Amer 33 L, Est GFR (MDRD) Non-Af 28 L, BUN/Creatinine Ratio 18.0, Glucose 121 H, Calcium 9.0, Total Bilirubin 0.80, AST 22, ALT 17, Alkaline Phosphatase 154 H, Total Protein 7.0, Albumin 3.3, Globulin 3.7, Albumin/Globulin Ratio 0.9 05/28/22 00:33: POC Glucose 96 05/28/22 05:11: WBC 9.1, RBC 4.57, Hgb 12.6, Hct 41.1, MCV 89.9, MCH 27.6, MCHC 30.7 L, RDW Std Deviation 50.5 H, RDW Coeff of Jan 15.5 H, Plt Count 166, MPV 12.2 H, Immature Gran % (Auto) 0.900, Neut % (Auto) 54.4, Lymph % (Auto) 32.4, [place] % (Auto) 8.5, Eos % (Auto) 3.0, Baso % (Auto) 0.8, Absolute Neuts (auto) 4.9, Absolute Lymphs (auto) 2.93, Nucleated RBC % 0 05/28/22 05:11: Sodium 138, Potassium 3.8, Chloride 108 H, Carbon Dioxide 23.0, Anion Gap 7, BUN 34 H, Creatinine 1.98 H, Estim Creat Clear Calc 28.28, Est GFR (MDRD) Af Amer 33 L, Est GFR (MDRD) Non-Af 27 L, BUN/Creatinine Ratio 17.2, Glucose 79, Calcium 9.0, Total Bilirubin 0.70, AST 15, ALT 18, Alkaline Phosphatase 150 H, Total Protein 7.0, Albumin 3.2, Globulin 3.8, Albumin/Globulin Ratio 0.8 L 05/28/22 06:01: POC Glucose 108 H Radiology Impression Hip/Pelvis X-Ray 05/27/22 14:50 IMPRESSION: Status post left total hip replacement. Stable 1 cm bone island in the superior aspect of the right sacrum. Electronically Signed: Eric Spencer MD at 15:31 EDT ,
[2022-05-28] MEDS: tiZANidine HCl 2 MG Tablet 4 MG PO ×2 (09:15→17:22)
--- NOTE | 2022-05-28 15:00 | CASEMGMT ---
SVETLANA CM: SVETLANA RAINEY in to complete BECKFORD form at this time.? RN CM explained [place]ORD form to patient, patient voiced understanding.? Patient signed [employer] Form and filed in chart.? Patient provided with copy of signed [place]ORD form.? Patient had no further questions or concerns.?Leona Bledsoe RN CM ?
[2022-05-29] VITALS (10 sets, daily range): BP systolic 115–150; BP diastolic 54–92; PULSE 66–89; RESP 14–20; TEMP 36.3–36.9; O2SAT 92–96; BMI 31.1
[2022-05-29] MEDS: oxyCODONE 5 MG Tablet PO ×3 (06:52→22:50)
[2022-05-29 07:05] LABS: Absolute Lymphocyte Count 2.43 X10^3/uL (0.83-4.51); Absolute Neutrophil Count 4.5 X10^3/uL (2.0-7.7); Basophil# 0.06 X10^3/uL; Basophil% 0.8 % (0-1); Eosinophil# 0.22 X10^3/uL; Eosinophils% 2.8 % (0-5); Hematocrit 35.8 % (37-47); Hemoglobin 11.2 g/dL (12.0-15.0); Lymphocyte # 2.43 X10^3/ul (0.83-4.51); Mean Corp Hgb Conc 31.3 g/dL (32-36); Mean Corpuscular Hgb 27.7 pg (27.0-32.0); Mean Corpuscular Volume 88.6 fL (81-99); Mean Platelet Vol. 12.7 fl (6.2-12.0); Monocyte# 0.56 X10^3/uL; Monocyte% 7.1 % (0-10); NRBC Flagged by Analyzer 0 % (0-5); Neutrophil % 57.3 % (47-70); Platelet Count 160 K/mm3 (150-450); RBC Distribution Width CV 14.9 % (11.6-14.6); Red Blood Count 4.04 M/mm3 (4.2-5.4); White Blood Count 7.9 K/mm3 (4.4-11.0)
[2022-05-29 07:27] LABS: Anion Gap 9 (5-15); BUN 41 mg/dL (7-18); BUN/Creat Ratio 19.4 RATIO (10-20); Chloride 106 mmol/L (98-107); Creatinine, Serum 2.11 mg/dL (0.55-1.02); EST Glomerular Filtration Rate 25 mL/min (>60); Est Glom Filt Rate - Afr Amer 30 mL/min (>60); Estimated Creatinine Clearance 26.54 ml/min; Glucose 175 mg/dL (74-106); Potassium 3.7 mmol/L (3.5-5.1); Sodium Level 137 mmol/L (136-145)
--- NOTE | 2022-05-29 07:41 | PN.ORTHO_ITS ---
Objective Data Objective Data Vital Signs:
--- NOTE | 2022-05-29 07:41 | PCM.PN.ORT ---
Objective Data Objective Data Vital Signs: Vital Signs Temp Pulse Resp BP Pulse Ox O2 Del Method 97.3 F L 66 16 122/54 H 92 Room Air 05/29/22 04:00 05/29/22 04:00 05/29/22 04:00 05/29/22 04:00 05/29/22 04:00 05/29/22 04:00 Oxygen Delivery Method Room Air Weight: 198 lb 10.184 oz Body Mass Index (BMI) 31.1 Intake & Output: Intake and Output for Last 24 Hours 05/27/22 05/28/22 05/29/22 23:59 23:59 23:59 Intake Total 1150 / 1150 Output Total 1000 / 1000 Balance 150 / 150 Lab / Micro Data Result Diagrams: 05/29/22 06:40 05/29/22 06:40 Labs: Laboratory Results - last 24 hr 05/29/22 06:40: WBC 7.9, RBC 4.04 L, Hgb 11.2 L, Hct 35.8 L, MCV 88.6, MCH 27.7, MCHC 31.3 L, RDW Std Deviation 48.0 H, RDW Coeff of Jan 14.9 H, Plt Count 160, MPV 12.7 H, Immature Gran % (Auto) 1.000 H, Neut % (Auto) 57.3, Lymph % (Auto) 31.0, [place] % (Auto) 7.1, Eos % (Auto) 2.8, Baso % (Auto) 0.8, Absolute Neuts (auto) 4.5, Absolute Lymphs (auto) 2.43, Nucleated RBC % 0 05/29/22 06:40: Sodium 137, Potassium 3.7, Chloride 106, Carbon Dioxide 22.0, Anion Gap 9, BUN 41 H, Creatinine 2.11 H, Estim Creat Clear Calc 26.54, Est GFR (MDRD) Af Amer 30 L, Est GFR (MDRD) Non-Af 25 L, BUN/Creatinine Ratio 19.4, Glucose 175 H, Calcium 9.0 Radiography Diagnostic Testing: Radiology Impression Ankle Brachial Index 05/27/22 23:22 Interpretation Summary Biphasic Doppler waveforms are noted at ankle level bilaterally. Pulse-volume recordings appear satisfactory at ankle and digital levels bilaterally. Resting ankle-brachial indices are normal bilaterally. Digital-brachial indices are normal bilaterally. There is no evidence of significant arterial occlusive disease in the lower extremities bilaterally. Ordering Physician: Valentine Carreno Referring Physician: SHANNAN MADRIGAL MD Performed By: Alex Padilla, RVT Lower Extremity CT 05/28/22 08:56 IMPRESSION: Status post left hip replacement. There is good alignment. Electronically Signed: Eric Spencer MD at 10:03 EDT , Assessment & Plan Assessment/Plan (1) Left hip pain: PLAN: Plan CT hip reviewed and is without any concerns continue pain control WBAT, PT, muscle relaxor, may consider short course of steroid.
[2022-05-29] MEDS: Ipratropium/Albuterol Sulfate 3 ML AMPUL.NEB INHALATION ×3 (07:46→19:59)
[2022-05-29] MEDS: Gabapentin 100 MG Capsule PO ×3 (08:59→16:58)
[2022-05-29] MEDS: Vitamin E 400 UNITS Capsule PO (08:59)
[2022-05-29] MEDS: Metoclopramide 5 MG TABLET PO ×2 (08:59→22:49)
[2022-05-29] MEDS: Pantoprazole Sodium 40 MG Tablet PO (08:59)
[2022-05-29] MEDS: Heparin Injection (Vial) 5,000 UNIT/ML VIAL 5000 UNIT SC ×2 (08:59→22:49)
[2022-05-29] MEDS: Isosorbide DN 30 MG Tablet PO ×2 (08:59→23:20)
[2022-05-29] MEDS: Pregabalin 75 MG Capsule PO ×2 (08:59→22:49)
[2022-05-29] MEDS: Metoprolol Tartrate 25 MG Tablet 75 MG PO ×2 (08:59→22:49)
[2022-05-29] MEDS: DULoxetine Hcl 30 MG Capsule 90 MG PO (08:59)
[2022-05-29] MEDS: Ursodiol 250 MG Tablet PO ×2 (09:00→23:20)
[2022-05-29] MEDS: Clopidogrel Bisulfate 75 MG Tablet PO (09:00)
[2022-05-29] MEDS: Lidocaine 5% Patch 1 PATCH TOPICAL (09:00)
[2022-05-29] MEDS: Aspirin E.C. 81 MG Tablet PO (09:00)
[2022-05-29] MEDS: hydroCHLOROthiazide 25 MG Tablet PO (09:00)
[2022-05-29] MEDS: Lactated Ringers 1,000 ML 100 ML IV ×2 (10:46→21:01)
--- NOTE | 2022-05-29 11:17 | CASEMGMT ---
Therapy is recommending patient go somewhere short term for rehab. This SHWETHA and SHWETHA San met with patient, introduced selves and role at [facility]. SW explained therapy is recommending she go somewhere for rehab short term. Patient said she would like to talk with her girlfriend about it first. Patient asked how long this would be and SW told her a week or two. However, it depends on how she progresses. SW provided patient with a list of fpc facility providers including quality and resource use data and consistent with patient?s preferred geographic region, medical needs, and insurance network were provided from the [employer] Guide. SW let patient know we can see how she does with therapy today and check in with her later. May Shin LAUNDRY MANAGER GRINDING WHEEL INSPECTOR
--- NOTE | 2022-05-29 13:53 | CASEMGMT ---
Patient and her significant other asked to talk with SHWETHA. This SHWETHA and SHWETHA San met with patient and her significant other. Answered their questions regarding fci placement. They chose 3 facilities, [facility], [facility], and [facility]. SHWETHA explained patient will stay at [facility] until her insurance approves her and this will likely not be until Wednesday or . SHWETHA will work on making referrals. SHWETHA will update them. Referral sent to [facility] via [employer]. May AGOSTO
--- NOTE | 2022-05-29 15:06 | CASEMGMT ---
SHWETHA has not heard from [facility]. SHWETHA called Megan and left her a voice mail requesting a return call regarding referral. May Shin MACHINE DESIGN ENGINEER TRINY
--- NOTE | 2022-05-29 16:07 | PN.HOSP_ITS ---
Reason for Visit Reason for Visit: Diagnoses Pain in left hip (05/27/22) Subjective Subjective Follow-up for left lower extremity excruciating pain and spasm after fall Objective Data Objective Data Vital Signs: Vital Signs Temp Pulse Resp BP Pulse Ox O2 Del Method 98.2 F 77 16 150/55 H 94 Room Air 05/29/22 15:40 05/29/22 15:40 05/29/22 15:40 05/29/22 15:40 05/29/22 15:40 05/29/22 15:40 Oxygen Delivery Method Room Air Weight: 198 lb 10.184 oz Body Mass Index (BMI) 31.1 Intake & Output: Intake and Output for Last 24 Hours 05/27/22 05/28/22 05/29/22 23:59 23:59 23:59 Intake Total 1150 / 1150 480 / 480 Output Total 1000 / 1000 Balance 150 / 150 480 / 480 Lab / Micro Data Result Diagrams: 05/29/22 06:40 05/29/22 06:40 Labs: Laboratory Results - last 24 hr 05/29/22 06:40: WBC 7.9, RBC 4.04 L, Hgb 11.2 L, Hct 35.8 L, MCV 88.6, MCH 27.7, MCHC 31.3 L, RDW Std Deviation 48.0 H, RDW Coeff of Jan 14.9 H, Plt Count 160, MPV 12.7 H, Immature Gran % (Auto) 1.000 H, Neut % (Auto) 57.3, Lymph % (Auto) 31.0, [place] % (Auto) 7.1, Eos % (Auto) 2.8, Baso % (Auto) 0.8, Absolute Neuts (auto) 4.5, Absolute Lymphs (auto) 2.43, Nucleated RBC % 0 05/29/22 06:40: Sodium 137, Potassium 3.7, Chloride 106, Carbon Dioxide 22.0, Anion Gap 9, BUN 41 H, Creatinine 2.11 H, Estim Creat Clear Calc 26.54, Est GFR (MDRD) Af Amer 30 L, Est GFR (MDRD) Non-Af 25 L, BUN/Creatinine Ratio 19.4, Glucose 175 H, Calcium 9.0 Radiography Diagnostic Testing: Radiology Impression Ankle Brachial Index 05/27/22 23:22 Interpretation Summary Biphasic Doppler waveforms are noted at ankle level bilaterally. Pulse-volume recordings appear satisfactory at ankle and digital levels bilaterally. Resting ankle-brachial indices are normal bilaterally. Digital-brachial indices are normal bilaterally. There is no evidence of significant arterial occlusive disease in the lower extremities bilaterally. Ordering Physician: Valentine Carreno Referring Physician: SHANNAN MADRIGAL MD Performed By: Alex Padilla, RVT Physical Exam Narrative Patient is still cannot put her weight on the left lower extremity due to severe pain over left thigh and gluteal region. She feels intermittent waves of spasm. Physical exam General: Alert, Oriented x3, Cooperative HEENT: Atraumatic, PERRLA, EOMI, Normocephalic Oral: Oral mucosa moist. No Gingival or Mucosal Lesions/ Ulcerations Neck: Supple, No JVD, Negative Carotid Bruits Lungs: Air entry diminished in bilateral lung bases. No crepitation/rhonchi Cardiovascular: Regular rate, Regular Rhythm, Normal S1, Normal S2, no murmur. Abdomen: Bowel Sounds Present, Soft, Non Tender, Non-Distended. Ileostomy bag. : No renal angle tenderness. No suprapubic tenderness. Extremities: No edema, Capillary Refill Less than 3 Seconds Skin: No rashes, No breakdown Musculoskeletal: ROM severely limited in all planes over left hip joint. Tenderness present over left buttock region, mild groin and posterior thigh. Cannot evaluate muscle strength of left lower extremity due to pain. Neurological: Cranial nerves II-XII grossly intact, DTR 2+/4 Psych/Mental Status: Flat affect. Assessment & Plan Assessment/Plan (1) Left hip pain: PLAN: Plan The patient is a 61 y/o F with recent left total hip arthroplasty by Dr. Camacho in April 2022 was admitted with severe left buttock pain with radiation to p osterior left thigh and at x2 whole left lower extremity. Denies paresthesia or other sensation. Denies bowel bladder new dysfunction or saddle paresthesia. Denies foot drop. #1. Intractable left hip pain, unclear specific etiology: Patient is admitted in PCU and MedSurg status. Patient on Lyrica and Cymbalta at home and gabapentin was added here. Patient on Subutex patch at home which is nonformulary therefore changed to lidocaine patch. Patient also on muscle relaxant, tizanidine. 05/29: No significant improvement in the pain and spasm. Tizanidine changed to methocarbamol. Patient on multiple medications as mentioned above. Being followed by orthopedic surgeon.CT hip reviewed by orthopedic surgeon and no acute concern. Pain control WBAT. #2. Ulcerative colitis status post colon proctectomy with ileostomy: Patient with significant history is chronically with high put output with acute kidney injury on chronic kidney disease, recent discharge 03/16/2022 following similar pr esentation with gastroenterology consultation at that time, continue cholestyramine, ursodiol, Lomotil and hyoscyamine. 05/29: Continue IV fluid support. #3. CKD stage G4: Patient baseline creatinine is around 2.0, varies from 1.8- 2.15, estimated creatinine clearance 31 mL/min.? Patient creatinine 1.98 at baseline. CAD: s/p PCI x 9 secondary to failed CABG x 4, recent 07/2017 stress testing which was unremarkable, frequent presentations for chest pain, maintain on asa, Plavix, metoprolol, statin therapy. 4.? Diabetes mellitus type 2 with gastroparesis: Glucose is controlled 108. Glucose 79 BMP. 5.? History of NAFLD and fatty liver: ALT AST normal.? Current phosphatase 154, total bili 1.2.? Patient follows Dr. Andino.? Patient had liver biopsy in December 2020, macrovesicular stasis disease, F2/F3 by liver biopsy and elastography.? No cirrhosis.? Patient also has diabetes gastroparesis.? On ursodiol, vitamin D, vitamin D, statin and aspirin. 6.?MGUS: Patient with history of low level IgA lambda monoclonal protein on routine blood testing with no evidence of endorgan damage from multiple myeloma with evidence of slow progressive CKD but certain #7. Hypertension: Continue home regimen including metoprolol and isosorbide with as needed hydralazine. #8. Hyperlipidemia: Continue home statin regimen. #9. Chronic COPD with chronic hypoxic respiratory failure: Patient with lee pplemental 2 L nasal cannula with exertion per history DuoNeb therapy, PRN albuterol, HOB, IS parameters. #10. Depression/Anxiety: Maintain on home duloxetine regimen. #11. Chronic pain syndrome: Maintain on chronic pregabalin and buprenorphine transdermal regimen. #12. Obesity: Weight loss and lifestyle changes encouraged. #13. Former tobacco usage: Encourage continued tobacco cessation. #14. ANKITA: BiPAP nightly. #15. DVT prophylaxis: Heparin. #16. CODE status: Patient HCPOA is her significant other/fianc? Azucena and living will is currently in place. Discussed CODE status at length including difference between FULL code, DNR-CCA and DNR-CC status. Following discussions about the differences in these status, requested Full Code status. Advanced Care Planning Face to Face Time: 16 minutes. Charges/Coding Visit Charges Inpatient E&M: 00672 Subs Hosp L2
--- NOTE | 2022-05-29 16:46 | CASEMGMT ---
SHWETHA let patient know that SW made a referral to [facility], but they have not gotten back to yet. SHWETHA told patient SW will follow up with her on Wednesday. Plan: SNF pending acceptance at a facility and insurance approval. May AGOSTO
[2022-05-29] MEDS: Methocarbamol 500 MG Tablet PO ×2 (16:58→23:20)
[2022-05-29] MEDS: traZODone 50 MG Tablet PO (22:49)
[2022-05-29] MEDS: Atorvastatin Calcium 80 MG Tablet PO (22:49)
[2022-05-29 23:15] LABS: Bedside Glucose 200 mg/dL (74-106)
[2022-05-29] MEDS: Insulin Lispro 100 UNIT/ML INSULN.PEN SC (23:18)
[2022-05-30] VITALS (8 sets, daily range): BP systolic 135–147; BP diastolic 51–68; PULSE 79–89; RESP 16–18; TEMP 36.6–37.3; O2SAT 93–95
[2022-05-30] MEDS: Insulin Lispro 100 UNIT/ML INSULN.PEN SC ×2 (06:02→11:45)
[2022-05-30 06:21] LABS: Absolute Lymphocyte Count 2.27 X10^3/uL (0.83-4.51); Absolute Neutrophil Count 4.5 X10^3/uL (2.0-7.7); Basophil# 0.04 X10^3/uL; Basophil% 0.5 % (0-1); Eosinophil# 0.19 X10^3/uL; Eosinophils% 2.5 % (0-5); Hemoglobin 11.1 g/dL (12.0-15.0); Lymphocyte # 2.27 X10^3/ul (0.83-4.51); Lymphocyte % 29.8 % (19-41); Mean Corp Hgb Conc 30.8 g/dL (32-36); Mean Corpuscular Hgb 27.4 pg (27.0-32.0); Mean Corpuscular Volume 88.9 fL (81-99); Mean Platelet Vol. 12.6 fl (6.2-12.0); Monocyte# 0.53 X10^3/uL; Monocyte% 6.9 % (0-10); NRBC Flagged by Analyzer 0 % (0-5); Platelet Count 161 K/mm3 (150-450); RBC Distribution Width CV 14.9 % (11.6-14.6); Red Blood Count 4.05 M/mm3 (4.2-5.4); White Blood Count 7.6 K/mm3 (4.4-11.0)
[2022-05-30 06:26] LABS: Bedside Glucose 200 mg/dL (74-106)
[2022-05-30 06:57] LABS: Anion Gap 6 (5-15); BUN 35 mg/dL (7-18); BUN/Creat Ratio 15.4 RATIO (10-20); Calcium,Total 9.2 mg/dL (8.5-10.1); Chloride 109 mmol/L (98-107); Creatinine, Serum 2.27 mg/dL (0.55-1.02); EST Glomerular Filtration Rate 23 mL/min (>60); Est Glom Filt Rate - Afr Amer 28 mL/min (>60); Estimated Creatinine Clearance 24.67 ml/min; Glucose 215 mg/dL (74-106); Potassium 3.9 mmol/L (3.5-5.1); Sodium Level 139 mmol/L (136-145)
[2022-05-30] MEDS: Gabapentin 100 MG Capsule PO ×3 (07:55→16:48)
[2022-05-30] MEDS: Heparin Injection (Vial) 5,000 UNIT/ML VIAL 5000 UNIT SC ×2 (09:06→21:58)
[2022-05-30] MEDS: Lidocaine 5% Patch 1 PATCH TOPICAL (09:07)
[2022-05-30] MEDS: Isosorbide DN 30 MG Tablet PO ×2 (09:08→21:56)
[2022-05-30] MEDS: Ursodiol 250 MG Tablet PO ×2 (09:08→21:55)
[2022-05-30] MEDS: Metoclopramide 5 MG TABLET PO ×2 (09:08→21:55)
[2022-05-30] MEDS: DULoxetine Hcl 30 MG Capsule 90 MG PO (09:08)
[2022-05-30] MEDS: Clopidogrel Bisulfate 75 MG Tablet PO (09:08)
[2022-05-30] MEDS: hydroCHLOROthiazide 25 MG Tablet PO (09:08)
[2022-05-30] MEDS: Pregabalin 75 MG Capsule PO ×2 (09:08→21:54)
[2022-05-30] MEDS: Aspirin E.C. 81 MG Tablet PO (09:08)
[2022-05-30] MEDS: Vitamin E 400 UNITS Capsule PO (09:08)
[2022-05-30] MEDS: Methocarbamol 500 MG Tablet PO ×4 (09:09→21:55)
[2022-05-30] MEDS: Pantoprazole Sodium 40 MG Tablet PO (09:09)
[2022-05-30] MEDS: Metoprolol Tartrate 25 MG Tablet 75 MG PO ×2 (09:09→21:57)
[2022-05-30 11:50] LABS: Bedside Glucose 368 mg/dL (74-106)
--- NOTE | 2022-05-30 12:44 | PN.HOSP_ITS ---
Reason for Visit Reason for Visit: Diagnoses Pain in left hip (05/27/22) Follow-up for pain over the left lower extremity around hip region and gluteal region, today. Right lower extremity Subjective Subjective Patient hysterics her left lower extremity pain is better part of started hurting on the right thigh. Objective Data Objective Data Vital Signs: Vital Signs Temp Pulse Resp BP Pulse Ox O2 Del Method 98 F 88 18 137/68 H 94 Room Air 05/30/22 09:30 05/30/22 09:30 05/30/22 09:30 05/30/22 09:30 05/30/22 09:30 05/30/22 09:30 Oxygen Delivery Method Room Air Weight: 198 lb 10.184 oz Body Mass Index (BMI) 31.1 Intake & Output: Intake and Output for Last 24 Hours 05/28/22 05/29/22 05/30/22 23:59 23:59 23:59 Intake Total 1150 / 1150 2230 / 2480 1450 / 1450 Output Total 1000 / 1000 Balance 150 / 150 2230 / 2480 1450 / 1450 Lab / Micro Data Result Diagrams: 05/30/22 05:34 05/30/22 05:34 Labs: Laboratory Results - last 24 hr 05/29/22 22:53: POC Glucose 200 H 05/30/22 05:34: WBC 7.6, RBC 4.05 L, Hgb 11.1 L, Hct 36.0 L, MCV 88.9, MCH 27.4, MCHC 30.8 L, RDW Std Deviation 48.0 H, RDW Coeff of Jan 14.9 H, Plt Count 161, MPV 12.6 H, Immature Gran % (Auto) 1.300 H, Neut % (Auto) 59.0, Lymph % (Auto) 29.8, [place] % (Auto) 6.9, Eos % (Auto) 2.5, Baso % (Auto) 0.5, Absolute Neuts (auto) 4.5, Absolute Lymphs (auto) 2.27, Nucleated RBC % 0 05/30/22 05:34: Sodium 139, Potassium 3.9, Chloride 109 H, Carbon Dioxide 24.0, Anion Gap 6, BUN 35 H, Creatinine 2.27 H, Estim Creat Clear Calc 24.67, Est GFR (MDRD) Af Amer 28 L, Est GFR (MDRD) Non-Af 23 L, BUN/Creatinine Ratio 15.4, Glucose 215 H, Calcium 9.2 05/30/22 06:01: POC Glucose 200 H 05/30/22 11:12: POC Glucose 368 H Physical Exam Narrative Patient is still debilitated due to pain on both lower extremities due to severe pain, therefore cannot ambulate.. Her spasm is much improved. Physical exam General: Alert, Oriented x3, Cooperative HEENT: Atraumatic, PERRLA, EOMI, Normocephalic Oral: Oral mucosa moist. No Gingival or Mucosal Lesions/ Ulcerations Neck: Supple, No JVD, Negative Carotid Bruits Lungs: Air entry diminished in bilateral lung bases. No crepitation/rhonchi Cardiovascular: Regular rate, Regular Rhythm, Normal S1, Normal S2, no murmur. Abdomen: Bowel Sounds Present, Soft, Non Tender, Non-Distended. Ileostomy bag. : No renal angle tenderness. No suprapubic tenderness. Extremities: No edema, Capillary Refill Less than 3 Seconds Skin: No rashes, No breakdown Musculoskeletal: ROM severely limited in all planes over left hip and knee joint. Tenderness present over left buttock region, mild groin and posterior thigh and also on the right posterior thigh.. Cannot evaluate muscle strength of both lower extremities. Neurological: Cranial nerves II-XII grossly intact, DTR 2+/4 Psych/Mental Status: Flat affect. Assessment & Plan Assessment/Plan (1) Left hip pain: PLAN: Plan The patient is a 61 y/o F with recent left total hip arthroplasty by Dr. Camacho in April 2022 was admitted with severe left buttock pain with radiation to posterior left thigh and at x2 whole left lower extremity. Denies paresthesia or other sensation. Denies bowel bladder new dysfunction or saddle paresthesia. Denies foot drop. #1. Intractable left hip pain, unclear specific etiology: Patient is admitted in PCU and MedSurg status. Patient on Lyrica and Cymbalta at home and gabapentin was added here. Patient on Subutex patch at home which is nonformulary therefore changed to lidocaine patch. Patient also on muscle relaxant, tizanidine. 05/29: No significant improvement in the pain and spasm. Tizanidine changed to methocarbamol. Patient on multiple medications as mentioned above. Being followed by orthopedic surgeon.CT hip reviewed by orthopedic surgeon and no acute concern. Pain control WBAT. 05/30: Pain over left lower extremity is better but now started hurting on right thigh area. Continue PT and OT and plan for discharge to SNF. #2. Ulcerative colitis status post colon proctectomy with ileostomy: Patient with significant history is chronically with high put output with acute kidney injury on chronic kidney disease, recent discharge 03/16/2022 following similar presentation with gastroenterology consultation at that time, continue cholestyramine, ursodiol, Lomotil and hyoscyamine. 05/29: Continue IV fluid support. 05/30: Creatinine 2.27. Discontinue IV fluid. Her stool output has more formed. #3. CKD stage G4: Patient baseline creatinine is around 2.0, varies from 1.8- 2.15, estimated creatinine clearance 31 mL/min.? Patient creatinine 1.98 at baseline. CAD: s/p PCI x 9 secondary to failed CABG x 4, recent 07/2017 stress testing which was unremarkable, frequent presentations for chest pain, maintain on asa, Plavix, metoprolol, statin therapy. 4.? Diabetes mellitus type 2 with gastroparesis: Glucose is controlled 108. Glucose 79 BMP. 05/30: Insulin pump is not functioning as she ran out of the insulin. Started on Accu-Chek ACHS with Humalog insulin 15 units 3 times daily with meals and Lantus insulin 10 units subcutaneous twice daily along with sliding scale insulin coverage. Hold scheduled insulin if glucose is less than 130 mg/dL. 5.? History of NAFLD and fatty liver: ALT AST normal.? Current phosphatase 154, total bili 1.2.? Patient follows Dr. Andino.? Patient had liver biopsy in December 2020, macrovesicular stasis disease, F2/F3 by liver biopsy and el astography.? No cirrhosis.? Patient also has diabetes gastroparesis.? On ursodiol, vitamin D, vitamin D, statin and aspirin. 6.?MGUS: Patient with history of low level IgA lambda monoclonal protein on routine blood testing with no evidence of endorgan damage from multiple myeloma with evidence of slow progressive CKD but certain #7. Hypertension: Continue home regimen including metoprolol and isosorbide with as needed hydralazine. #8. Hyperlipidemia: Continue home statin regimen. #9. Chronic COPD with chronic hypoxic respiratory failure: Patient with supplemental 2 L nasal cannula with exertion per history DuoNeb therapy, PRN albuterol, HOB, IS parameters. #10. Depression/Anxiety: Maintain on home duloxetine regimen. #11. Chronic pain syndrome: Maintain on chronic pregabalin and buprenorphine transdermal regimen. #12. Obesity: Weight loss and lifestyle changes encouraged. #13. Former tobacco usage: Encourage continued tobacco cessation. #14. ANKITA: BiPAP nightly. #15. DVT prophylaxis: Heparin. #16. CODE status: Patient HCPOA is her significant other/fianc? Azucena and living will is currently in place. Discussed CODE status at length including difference between FULL code, DNR-CCA and DNR-CC status. Following discussions about the differences in these status, requested Full Code status. Advanced Care Planning Face to Face Time: 16 minutes. Charges/Coding Visit Charges Inpatient E&M: 82301 Subs Hosp L2
[2022-05-30] MEDS: oxyCODONE 5 MG Tablet PO (15:15)
--- NOTE | 2022-05-30 16:43 | NURSING ---
Pt blood sugar is 362 and she gave herself 15 units with her dinner
[2022-05-30] MEDS: Ipratropium/Albuterol Sulfate 3 ML AMPUL.NEB INHALATION (19:29)
[2022-05-30] MEDS: traZODone 50 MG Tablet PO (21:55)
[2022-05-30] MEDS: Atorvastatin Calcium 80 MG Tablet PO (21:56)
--- NOTE | 2022-05-30 22:08 | NURSING ---
patients insulin reading was 332 (personal glucometer patch), she says her insulin pump will give her 17 units of insulin. She refuses the insulin ordered today by physician.
[2022-05-31] VITALS (8 sets, daily range): BP systolic 129–152; BP diastolic 56–70; PULSE 76–92; RESP 16–20; TEMP 36.4–37.2; O2SAT 93–98; BMI 31.5
[2022-05-31] MEDS: oxyCODONE 5 MG Tablet PO ×3 (04:31→21:35)
--- NOTE | 2022-05-31 08:34 | NURSING ---
Blood sugar at 7:45 was 127 and dosed with 14 units and she ate breakfast that had 50 carbs
[2022-05-31] MEDS: DULoxetine Hcl 30 MG Capsule 90 MG PO (08:47)
[2022-05-31] MEDS: Heparin Injection (Vial) 5,000 UNIT/ML VIAL 5000 UNIT SC ×2 (08:47→21:32)
[2022-05-31] MEDS: Metoprolol Tartrate 25 MG Tablet 75 MG PO ×2 (08:47→21:31)
[2022-05-31] MEDS: Gabapentin 100 MG Capsule PO ×3 (08:48→16:59)
[2022-05-31] MEDS: Ursodiol 250 MG Tablet PO ×2 (08:48→21:30)
[2022-05-31] MEDS: Pantoprazole Sodium 40 MG Tablet PO (08:48)
[2022-05-31] MEDS: hydroCHLOROthiazide 25 MG Tablet PO (08:48)
[2022-05-31] MEDS: Methocarbamol 500 MG Tablet PO ×4 (08:49→21:31)
[2022-05-31] MEDS: Vitamin E 400 UNITS Capsule PO (08:49)
[2022-05-31] MEDS: Pregabalin 75 MG Capsule PO ×2 (08:49→21:30)
[2022-05-31] MEDS: Isosorbide DN 30 MG Tablet PO ×2 (08:49→21:34)
[2022-05-31] MEDS: Aspirin E.C. 81 MG Tablet PO (08:49)
[2022-05-31] MEDS: Clopidogrel Bisulfate 75 MG Tablet PO (08:49)
[2022-05-31] MEDS: Metoclopramide 5 MG TABLET PO ×2 (08:49→21:31)
--- NOTE | 2022-05-31 11:02 | PN.HOSP_ITS ---
Reason for Visit Reason for Visit: Diagnoses Pain in left hip (05/27/22) Follow-up for severe musculoskeletal pain Objective Data Objective Data Vital Signs: Vital Signs Temp Pulse Resp BP Pulse Ox O2 Del Method 98.4 F 76 18 134/57 H 96 Room Air 05/31/22 10:00 05/31/22 10:00 05/31/22 10:00 05/31/22 10:00 05/31/22 10:00 05/31/22 10:00 Oxygen Delivery Method Room Air Weight: 201 lb 4.513 oz Body Mass Index (BMI) 31.5 Intake & Output: Intake and Output for Last 24 Hours 05/29/22 05/30/22 05/31/22 23:59 23:59 23:59 Intake Total 2230 / 2480 1450 / 1450 Balance 2230 / 2480 1450 / 1450 Lab / Micro Data Result Diagrams: 05/30/22 05:34 05/30/22 05:34 Labs: Laboratory Results - last 24 hr 05/30/22 11:12: POC Glucose 368 H Physical Exam Narrative Patient returns after physical therapy and complaining of severe pain. Asking f or oxycodone. Patient is still debilitated due to pain on both lower extremities due to severe pain. Her spasm is much improved. Physical exam General: Alert, Oriented x3, Cooperative HEENT: Atraumatic, PERRLA, EOMI, Normocephalic Oral: Oral mucosa moist. No Gingival or Mucosal Lesions/ Ulcerations Neck: Supple, No JVD, Negative Carotid Bruits Lungs: Air entry diminished in bilateral lung bases. No crepitation/rhonchi Cardiovascular: Regular rate, Regular Rhythm, Normal S1, Normal S2, no murmur. Abdomen: Bowel Sounds Present, Soft, Non Tender, Non-Distended. Ileostomy bag. : No renal angle tenderness. No suprapubic tenderness. Extremities: No edema, Capillary Refill Less than 3 Seconds Skin: No rashes, No breakdown Musculoskeletal: ROM improved with physical therapy but still tenderness present over left buttock region, and posterior thigh and also on the right posterior thigh. Muscle strength 4/5 at major joints Neurological: Cranial nerves II-XII grossly intact, DTR 2+/4 Psych/Mental Status: Flat affect. Assessment & Plan Assessment/Plan (1) Left hip pain: PLAN: Plan The patient is a 61 y/o F with recent left total hip arthroplasty by Dr. Camacho in April 2022 was admitted with severe left buttock pain with radiation to posterior left thigh and at x2 whole left lower extremity. Denies paresthesia or other sensation. Denies bowel bladder new dysfunction or saddle paresthesia. Denies foot drop. #1. Intractable left hip pain, unclear specific etiology: Patient is admitted in PCU and MedSurg status. Patient on Lyrica and Cymbalta at home and gabapen tin was added here. Patient on Subutex patch at home which is nonformulary therefore changed to lidocaine patch. Patient also on muscle relaxant, tizanidine. 05/29: No significant improvement in the pain and spasm. Tizanidine changed to methocarbamol. Patient on multiple medications as mentioned above. Being followed by orthopedic surgeon.CT hip reviewed by orthopedic surgeon and no acute concern. Pain control WBAT. 05/30: Pain over left lower extremity is better but now started hurting on right thigh area. Continue PT and OT and plan for discharge to SNF. 05/31: Patient still has back pain got exacerbated after PT but advised to continue. Patient might have osteoporosis but she is not candidate for oral bisphosphonate due to CKD stage IV. #2. Ulcerative colitis status post colon proctectomy with ileostomy: Patient with significant history is chronically with high put output with acute kidney injury on chronic kidney disease, recent discharge 03/16/2022 following similar presentation with gastroenterology consultation at that time, continue cholestyramine, ursodiol, Lomotil and hyoscyamine. 05/29: Continue IV fluid support. 05/30: Creatinine 2.27. Discontinue IV fluid. Her stool output has more formed. #3. CKD stage G4: Patient baseline creatinine is around 2.0, varies from 1.8- 2.15, estimated creatinine clearance 31 mL/min.? Patient creatinine 1.98 at baseline. CAD: s/p PCI x 9 secondary to failed CABG x 4, recent 07/2017 stress testing which was unremarkable, frequent presentations for chest pain, maintain on asa, Plavix, metoprolol, statin therapy. 4.? Diabetes mellitus type 2 with gastroparesis: Glucose is controlled 108. Glucose 79 BMP. 05/30: Insulin pump is not functioning as she ran out of the insulin. Started on Accu-Chek ACHS with Humalog insulin 15 units 3 times daily with meals and Lantus insulin 10 units subcutaneous twice daily along with sliding scale insulin coverage. Hold scheduled insulin if glucose is less than 130 mg/dL. 05/31: As per nursing staff her insulin pump is running and she is refusing intermittent insulin that is okay if insulin pump is functioning. 5.? History of NAFLD and fatty liver: ALT AST normal.? Current phosphatase 154, total bili 1.2.? Patient follows DrBarry Andino.? Patient had liver biopsy in December 2020, macrovesicular stasis disease, F2/F3 by liver biopsy and elastography.? No cirrhosis.? Patient also has diabetes gastroparesis.? On ursodiol, vitamin D, vitamin D, statin and aspirin. 6.?MGUS: Patient with history of low level IgA lambda monoclonal protein on routine blood testing with no evidence of endorgan damage from multiple myeloma with evidence of slow progressive CKD but certain #7. Hypertension: Continue home regimen including metoprolol and isosorbide with as needed hydralazine. #8. Hyperlipidemia: Continue home statin regimen. #9. Chronic COPD with chronic hypoxic respiratory failure: Patient with supplemental 2 L nasal cannula with exertion per history DuoNeb therapy, PRN albuterol, HOB, IS parameters. #10. Depression/Anxiety: Maintain on home duloxetine regimen. #11. Chronic pain syndrome: Maintain on chronic pregabalin and buprenorphine transdermal regimen. #12. Obesity: Weight loss and lifestyle changes encouraged. #13. Former tobacco usage: Encourage continued tobacco cessation. #14. ANKITA: BiPAP nightly. #15. DVT prophylaxis: Heparin. #16. CODE status: Patient HCPOA is her significant other/fianc? Azucena and living will is currently in place. Discussed CODE status at length including difference between FULL code, DNR-CCA and DNR-CC status. Following discussions about the differences in these status, requested Full Code status. Advanced Care Planning Face to Face Time: 16 minutes. Discharge planning to SNF. Charges/Coding Visit Charges Inpatient E&M: 38955 Subs Hosp L2
--- NOTE | 2022-05-31 12:06 | NURSING ---
blood sugar was 246 she ate 56 carbs and was given 18 units of insulin.
--- NOTE | 2022-05-31 17:00 | NURSING ---
blood sugar 237 eating 70 carbs and she is getting 18 units at 17:00.
[2022-05-31] MEDS: Ipratropium/Albuterol Sulfate 3 ML AMPUL.NEB INHALATION (19:06)
[2022-05-31] MEDS: Atorvastatin Calcium 80 MG Tablet PO (21:31)
[2022-05-31] MEDS: traZODone 50 MG Tablet PO (21:32)
[2022-06-01] VITALS (9 sets, daily range): BP systolic 124–142; BP diastolic 57–70; PULSE 72–96; RESP 16–18; TEMP 36.7–36.8; O2SAT 92–97; BMI 31.4
[2022-06-01] MEDS: oxyCODONE 5 MG Tablet PO ×4 (01:47→20:05)
[2022-06-01] MEDS: Acetaminophen 325 MG Tablet 650 MG PO ×3 (01:48→20:05)
[2022-06-01] MEDS: Ipratropium/Albuterol Sulfate 3 ML AMPUL.NEB INHALATION ×2 (06:56→19:00)
[2022-06-01 07:09] LABS: Absolute Lymphocyte Count 2.76 X10^3/uL (0.83-4.51); Absolute Neutrophil Count 5.5 X10^3/uL (2.0-7.7); Basophil# 0.05 X10^3/uL; Basophil% 0.5 % (0-1); Eosinophil# 0.37 X10^3/uL; Eosinophils% 3.9 % (0-5); Hematocrit 38.2 % (37-47); Hemoglobin 12.1 g/dL (12.0-15.0); Lymphocyte # 2.76 X10^3/ul (0.83-4.51); Lymphocyte % 29.1 % (19-41); Mean Corp Hgb Conc 31.7 g/dL (32-36); Mean Corpuscular Hgb 27.9 pg (27.0-32.0); Mean Platelet Vol. 12.4 fl (6.2-12.0); Monocyte# 0.72 X10^3/uL; Monocyte% 7.6 % (0-10); NRBC Flagged by Analyzer 0.2 % (0-5); Neutrophil # 5.47 X10^3/uL (2.7-7.7); Neutrophil % 57.6 % (47-70); Platelet Count 197 K/mm3 (150-450); RBC Distribution Width CV 14.7 % (11.6-14.6); RBC Distribution Width SD 47.8 fl (35.1-43.9); Red Blood Count 4.34 M/mm3 (4.2-5.4); White Blood Count 9.5 K/mm3 (4.4-11.0)
--- NOTE | 2022-06-01 07:22 | PN.HOSP_ITS ---
Reason for Visit Reason for Visit: Diagnoses Pain in left hip (05/27/22) Subjective Subjective pain overall is better. pain in left hip into groin. Objective Data Objective Data Vital Signs: Vital Signs Temp Pulse Resp BP Pulse Ox O2 Del Method 36.8 C 72 16 131/57 H 97 Room Air 06/01/22 03:27 06/01/22 06:57 06/01/22 06:57 06/01/22 03:27 06/01/22 06:57 06/01/22 06:57 Oxygen Delivery Method Room Air Weight: 91 kg Body Mass Index (BMI) 31.4 Intake & Output: Intake and Output for Last 24 Hours 05/30/22 05/31/22 06/01/22 23:59 23:59 23:59 Intake Total 1450 / 1450 600 / 600 Balance 1450 / 1450 600 / 600 Lab / Micro Data Result Diagrams: 06/01/22 05:24 06/01/22 05:24 Labs: Laboratory Results - last 24 hr 06/01/22 05:24: WBC 9.5, RBC 4.34, Hgb 12.1, Hct 38.2, MCV 88.0, MCH 27.9, MCHC 31.7 L, RDW Std Deviation 47.8 H, RDW Coeff of Jan 14.7 H, Plt Count 197, MPV 12.4 H, Immature Gran % (Auto) 1.300 H, Neut % (Auto) 57.6, Lymph % (Auto) 29.1, Crane % (Auto) 7.6, Eos % (Auto) 3.9, Baso % (Auto) 0.5, Absolute Neuts (auto) 5.5, Absolute Lymphs (auto) 2.76, Nucleated RBC % 0.2 Physical Exam Const alert and no apparent distress HEENT head/scalp atraumatic Extremity normal to inspection and no clubbing, cyanosis or edema Neuro moves all extremities, no focal motor deficits and no sensory deficits noted Neuro Narrative: no clonus. Psych affect normal Assessment & Plan Assessment/Plan (1) Left hip pain: PLAN: Intractable left hip pain, unclear specific etiology: Patient is admitted in PCU and MedSurg status. Patient on Lyrica and Cymbalta at home and gabapentin was added here. Patient on Subutex patch at home which is nonformulary therefore changed to lidocaine patch. Patient also on muscle relaxant, tizanidine. 05/29: No significant improvement in the pain and spasm. Tizanidine changed to methocarbamol. Patient on multiple medications as mentioned above. Being followed by orthopedic surgeon.CT hip reviewed by orthopedic surgeon and no acute concern. Pain control WBAT. 05/30: Pain over left lower extremity is better but now started hurting on right thigh area. Continue PT and OT and plan for discharge to SNF. 05/31: Patient still has back pain got exacerbated after PT but advised to continue. Patient might have osteoporosis but she is not candidate for oral bisphosphonate due to CKD stage IV. 06/01: I am concerned for this being radicular. Pt acknowledges that she has chronic back and is working with Dr. Wright. She and Dr. Wright are working on getting insurance approval for an MRI of her back. Barring any new radicular symptoms, I will not order an MRI of her back as this is not a new phenomenon. PLAN: Plan Chronic stable conditions: * Ulcerative colitis status post colon proctectomy with ileostomy: Patient with significant history is chronically with high put output with acute kidney injury on chronic kidney disease, recent discharge 03/16/2022 following similar presentation with gastroenterology consultation at that time, continue cholestyramine, ursodiol, Lomotil and hyoscyamine. 05/29: Continue IV fluid support. 05/30: Creatinine 2.27. Discontinue IV fluid. Her stool output has more formed * CKD stage G4: Patient baseline creatinine is around 2.0, varies from 1.8-2.15, estimated creatinine clearance 31 mL/min.? Patient creatinine 1.98 at [facility]. * CAD: s/p PCI x 9 secondary to failed CABG x 4, recent 07/2017 stress testing which was unremarkable, frequent presentations for chest pain, maintain on asa, Plavix, metoprolol, statin therapy. * Diabetes mellitus type 2 with gastroparesis: Glucose is controlled 108. Glucose 79 BMP. 05/30: Insulin pump is not functioning as she ran out of the insulin. Started on Accu-Chek ACHS with Humalog insulin 15 units 3 times daily with meals and Lantus insulin 10 units subcutaneous twice daily along with sliding scale insulin coverage. Hold scheduled insulin if glucose is less than 130 mg/dL. 05/31: As per nursing staff her insulin pump is running and she is refusing intermittent insulin that is okay if insulin pump is functioning. * History of NAFLD and fatty liver: ALT AST normal.? Current phosphatase 154, total bili 1.2.? Patient follows Dr. Andino.? Patient had liver biopsy in December 2020, macrovesicular stasis disease, F2/F3 by liver biopsy and elastography.? No cirrhosis.? Patient also has diabetes gastroparesis.? On ursodiol, vitamin D, vitamin D, statin and aspirin. * MGUS: Patient with history of low level IgA lambda monoclonal protein on routine blood testing with no evidence of endorgan damage from multiple myeloma with evidence of slow progressive CKD but certain * Hypertension: Continue home regimen including metoprolol and isosorbide with as needed hydralazine. * Hyperlipidemia: Continue home statin regimen. * Chronic COPD with chronic hypoxic respiratory failure: Patient with supplemental 2 L nasal cannula with exertion per history DuoNeb therapy, PRN albuterol, HOB, IS * Depression/Anxiety: Maintain on home duloxetine regimen. * Chronic pain syndrome: Maintain on chronic pregabalin and buprenorphine transdermal regimen. * Obesity: Weight loss and lifestyle changes encouraged. * Former tobacco usage: Encourage continued tobacco cessation. * ANKITA: BiPAP nightly. DVT prophylaxis: Heparin. CODE status: Full Discharge planning to SNF. Charges/Coding Visit Charges Inpatient E&M: 54059 Subs Hosp L2
[2022-06-01 07:32] LABS: Anion Gap 4 (5-15); BUN 33 mg/dL (7-18); BUN/Creat Ratio 18.5 RATIO (10-20); Calcium,Total 9.5 mg/dL (8.5-10.1); Chloride 104 mmol/L (98-107); Creatinine, Serum 1.78 mg/dL (0.55-1.02); EST Glomerular Filtration Rate 31 mL/min (>60); Est Glom Filt Rate - Afr Amer 37 mL/min (>60); Estimated Creatinine Clearance 31.46 ml/min; Glucose 135 mg/dL (74-106); Potassium 3.3 mmol/L (3.5-5.1); Sodium Level 137 mmol/L (136-145)
[2022-06-01] MEDS: Gabapentin 100 MG Capsule PO ×3 (08:43→17:40)
--- NOTE | 2022-06-01 09:01 | CASEMGMT ---
Addendum entered by Kath Ordaz 06/01/22 14:02: [facility] reached out and informed precert will be started at this time. Addendum entered by Kath Ordaz 06/01/22 13:53: [facility] informed can clinically accept, but waiting for insurance verification. [facility] also asked if pt can bring own insulin pump supplies. SW met with pt to inform [facility] can accept and pt confirmed that insulin supplies can be brought from home. SW relayed this information to [facility] via [employer] and informed precert can be started as soon as possible, as MD Chandler informed pt is medically ready for discharge this morning. Original Note: Social Work SW reviewed referral to [facility]. [facility] has declined to accept pt at this time. SW in to pt room to inform of denial at [facility] and that referral can be sent to second choice, [facility]. Pt voiced understanding and confirmed that [facility] is second choice. SW sent referral to [facility]. PLAN: [facility], pending acceptance and precert KIT Ledesma
[2022-06-01] MEDS: DULoxetine Hcl 30 MG Capsule 90 MG PO (10:04)
[2022-06-01] MEDS: Isosorbide DN 30 MG Tablet PO ×2 (10:04→21:47)
[2022-06-01] MEDS: Metoprolol Tartrate 25 MG Tablet 75 MG PO ×2 (10:05→21:45)
[2022-06-01] MEDS: Metoclopramide 5 MG TABLET PO ×2 (10:09→21:45)
[2022-06-01] MEDS: Methocarbamol 500 MG Tablet PO ×4 (10:09→21:47)
[2022-06-01] MEDS: hydroCHLOROthiazide 25 MG Tablet PO (10:09)
[2022-06-01] MEDS: Vitamin E 400 UNITS Capsule PO (10:10)
[2022-06-01] MEDS: Aspirin E.C. 81 MG Tablet PO (10:10)
[2022-06-01] MEDS: Ursodiol 250 MG Tablet PO ×2 (10:10→21:47)
[2022-06-01] MEDS: Heparin Injection (Vial) 5,000 UNIT/ML VIAL 5000 UNIT SC ×2 (10:11→21:44)
[2022-06-01] MEDS: Clopidogrel Bisulfate 75 MG Tablet PO (10:13)
[2022-06-01] MEDS: Pantoprazole Sodium 40 MG Tablet PO (10:14)
[2022-06-01] MEDS: Pregabalin 75 MG Capsule PO ×2 (10:19→21:45)
[2022-06-01] MEDS: traZODone 50 MG Tablet PO (21:45)
[2022-06-01] MEDS: Atorvastatin Calcium 80 MG Tablet PO (21:46)
[2022-06-01] MEDS: MELATONIN 3 MG TABLET PO (21:46)
[2022-06-02 06:00] VITALS: BP 127/63; PULSE 80; RESP 16; TEMP 36.6; O2SAT 92; BMI 31.5
[2022-06-02] MEDS: Acetaminophen 325 MG Tablet 650 MG PO ×2 (06:13→10:15)
[2022-06-02] MEDS: oxyCODONE 5 MG Tablet PO ×2 (06:13→10:15)
[2022-06-02] MEDS: Ipratropium/Albuterol Sulfate 3 ML AMPUL.NEB INHALATION (06:35)
[2022-06-02 06:36] VITALS: PULSE 80; RESP 18; O2SAT 92
--- NOTE | 2022-06-02 07:31 | PN.HOSP_ITS ---
Reason for Visit Reason for Visit: Diagnoses Pain in left hip (05/27/22) Subjective Subjective States that her right leg is feeling worse today. yesterday, she got up to change the thermostat and nearly fell. The pain in her right leg was worse be fore that. States that the pain is in her lower back and goes down her posterior right leg. Also, states her glucose has been elevated into the 300s. many times when it gets that high it may be due to infection. She denies any dysuria. Does have a wound on her abdomen from an old scar. Objective Data Objective Data Vital Signs: Vital Signs Temp Pulse Resp BP Pulse Ox O2 Del Method 36.6 C 80 18 127/63 H 92 Room Air 06/02/22 06:00 06/02/22 06:36 06/02/22 06:36 06/02/22 06:00 06/02/22 06:36 06/02/22 06:36 Oxygen Delivery Method Room Air Weight: 91.3 kg Body Mass Index (BMI) 31.5 Intake & Output: Intake and Output for Last 24 Hours 05/31/22 06/01/22 06/02/22 23:59 23:59 23:59 Intake Total 1999 Balance 1999 Lab / Micro Data Result Diagrams: 06/01/22 05:24 06/01/22 05:24 Labs: Laboratory Results - last 24 hr 06/01/22 05:24: Sodium 137, Potassium 3.3 L, Chloride 104, Carbon Dioxide 29.0, Anion Gap 4 L, BUN 33 H, Creatinine 1.78 H, Estim Creat Clear Calc 31.46, Est GF R (MDRD) Af Amer 37 L, Est GFR (MDRD) Non-Af 31 L, BUN/Creatinine Ratio 18.5, Glucose 135 H, Calcium 9.5 Physical Exam Const alert and no apparent distress HEENT head/scalp atraumatic and moist oral mucous membranes Skin Skin Narrative: midline scar of abdomen with superficial linear opening. no tunneling appreciated. no surrounding erythema. Neuro oriented x3, moves all extremities and no sensory deficits noted Motor Exam: strength 5/5 throughout Psych affect normal Assessment & Plan Assessment/Plan (1) Left hip pain: PLAN: Intractable left hip pain, unclear specific etiology: Patient is admitted in PCU and MedSur status. Patient on Lyrica and Cymbalta at home and gabapentin was added here. Patient on Subutex patch at home which is nonformulary therefore changed to lidocaine patch. Patient also on muscle relaxant, tizanidine. 05/29: No significant improvement in the pain and spasm. Tizanidine changed to methocarbamol. Patient on multiple medications as mentioned above. Being followed by orthopedic surgeon.CT hip reviewed by orthopedic surgeon and no acute concern. Pain control WBAT. 05/30: Pain over left lower extremity is better but now started hurting on right thigh area. Continue PT and OT and plan for discharge to SNF. 05/31: Patient still has back pain got exacerbated after PT but advised to continue. Patient might have osteoporosis but she is not candidate for oral bisphosphonate due to CKD stage IV. 06/01: I am concerned for this being radicular. Pt acknowledges that she has chronic back and is working with Dr. Wright. She and Dr. Wright are working on getting insurance approval for an MRI of her back. Barring any new radicular symptoms, I will not order an MRI of her back as this is not a new phenomenon. (2) Right leg pain: PLAN: Worsened. concern for being radicular given known h/o back problems. pt denies any inciting event. Given worsening condition, will check an MRI of lumbar spine (3) Hyperglycemia: PLAN: last a1c 6.7 from 04/03/22 steadily going up on insulin pump check UA. PLAN: Plan Chronic stable conditions: * Ulcerative colitis status post colon proctectomy with ileostomy: Patient with significant history is chronically with high put output with acute kidney injury on chronic kidney disease, recent discharge 03/16/2022 following similar presentation with gastroenterology consultation at that time, continue cholestyramine, ursodiol, Lomotil and hyoscyamine. 05/29: Continue IV fluid support. 05/30: Creatinine 2.27. Discontinue IV fluid. Her stool output has more formed * CKD stage G4: Patient baseline creatinine is around 2.0, varies from 1.8-2.15, estimated creatinine clearance 31 mL/min.? Patient creatinine 1.98 at baseline. * CAD: s/p PCI x 9 secondary to failed CABG x 4, recent 07/2017 stress testing which was unremarkable, frequent presentations for chest pain, maintain on asa, Plavix, metoprolol, statin therapy. * Diabetes mellitus type 2 with gastroparesis: Glucose is controlled 108. Glucose 79 BMP. 05/30: Insulin pump is not functioning as she ran out of the insulin. Started on Accu-Chek ACHS with Humalog insulin 15 units 3 times daily with meals and Lantus insulin 10 units subcutaneous twice daily along with sliding scale insulin coverage. Hold scheduled insulin if glucose is less than 130 mg/dL. 05/31: As per nursing staff her insulin pump is running and she is refusing intermittent insulin that is okay if insulin pump is functioning. * History of NAFLD and fatty liver: ALT AST normal.? Current phosphatase 154, total bili 1.2.? Patient follows Dr. Andino.? Patient had liver biopsy in December 2020, macrovesicular stasis disease, F2/F3 by liver biopsy and elastography.? No cirrhosis.? Patient also has diabetes gastroparesis.? On ursodiol, vitamin D, vitamin D, statin and aspirin. * MGUS: Patient with history of low level IgA lambda monoclonal protein on routine blood testing with no evidence of endorgan damage from multiple myeloma with evidence of slow progressive CKD but certain * Hypertension: Continue home regimen including metoprolol and isosorbide with as needed hydralazine. * Hyperlipidemia: Continue home statin regimen. * Chronic COPD with chronic hypoxic respiratory failure: Patient with supplemental 2 L nasal cannula with exertion per history DuoNeb therapy, PRN albuterol, HOB, IS * Depression/Anxiety: Maintain on home duloxetine regimen. * Chronic pain syndrome: Maintain on chronic pregabalin and buprenorphine transdermal regimen. * Obesity: Weight loss and lifestyle changes encouraged. * Former tobacco usage: Encourage continued tobacco cessation. * ANKITA: BiPAP nightly. DVT prophylaxis: Heparin. CODE status: Full Discharge planning to SNF. Charges/Coding Visit Charges Inpatient E&M: 61819 Subs Hosp L2
[2022-06-02] MEDS: Gabapentin 100 MG Capsule PO ×3 (08:24→18:00)
--- NOTE | 2022-06-02 08:44 | MRI_ITS ---
STUDY: MR Spine Lumbar W/O Contrast 06/02/2022 3:22 PM REASON FOR EXAM: Female, 61 years old. Back pain radicular right LE pain TECHNIQUE: MR Spine Lumbar W/O Contrast Standardized fat and water weighted pulse sequences were obtained. COMPARISON: ctap 8.10.22 xr lspine 1.4.23 FINDINGS: T12-L1: Normal endplates. Normal disc height, hydration and morphology. Normal bilateral facet joints. Normal central canal and bilateral lateral recesses. Normal bilateral intervertebral neural foramina. Normal lumbar lordosis. There is no substantial scoliosis. Normal conus medullaris that terminates at the L1. L1-2: Normal endplates. Normal disc height and morphology. Normal central canal and intervertebral neuroforamina. L2-3: Normal endplates. Normal disc height, hydration and morphology. Normal bilateral facet joints. Normal central canal and bilateral lateral recesses. Normal bilateral intervertebral neural foramina. L3-4: Normal endplates. Normal disc height, hydration and morphology. Normal bilateral facet joints. Normal central canal and bilateral lateral recesses. Normal bilateral intervertebral neural foramina. L4-5: Loss of intervertebral disc height. There is endplate spondylosis of the vertebral body. Right neural foraminal stenosis. Small annular tear but no spinal stenosis. There is bilateral ligamentum flavum thickening. There is bilateral facet arthropathy. Hemangioma of L4. Disc desiccation. L5-S1: Loss of intervertebral disc height. There is endplate spondylosis of the vertebral body. There is bilateral facet arthropathy. Bilateral neural foraminal stenosis. Compression of exiting nerve roots. Posterior disc bulge osteophyte complex. There is bilateral ligamentum flavum thickening. Disc desiccation. Normal visualized sacral ala. Normal visualized paraspinous soft tissue structures. MRI/Spine Lumbar (Routine) IMPRESSION: Multilevel degenerative changes from L4 to S1, as described above. L4-5: Right neural foraminal stenosis. Small annular tear but no spinal stenosis. Hemangioma of L4. Disc desiccation. L5-S1: Bilateral neural foraminal stenosis. Compression of exiting nerve roots. Posterior disc bulge osteophyte complex. Disc desiccation. Electronically Signed: Cesar Bear MD at 15:34 EDT ,
[2022-06-02 09:35] VITALS: BP 144/62; PULSE 80; RESP 18; TEMP 36.8; O2SAT 92
[2022-06-02 09:44] VITALS: BP 144/62; PULSE 80
[2022-06-02] MEDS: Metoprolol Tartrate 25 MG Tablet 75 MG PO (09:44)
[2022-06-02] MEDS: Pregabalin 75 MG Capsule PO (09:44)
[2022-06-02] MEDS: Metoclopramide 5 MG TABLET PO (09:45)
[2022-06-02] MEDS: Ursodiol 250 MG Tablet PO (09:45)
[2022-06-02] MEDS: Isosorbide DN 30 MG Tablet PO (09:45)
[2022-06-02] MEDS: Heparin Injection (Vial) 5,000 UNIT/ML VIAL 5000 UNIT SC (09:46)
[2022-06-02] MEDS: DULoxetine Hcl 30 MG Capsule 90 MG PO (09:46)
[2022-06-02] MEDS: hydroCHLOROthiazide 25 MG Tablet PO (09:46)
[2022-06-02] MEDS: Clopidogrel Bisulfate 75 MG Tablet PO (09:46)
[2022-06-02] MEDS: Aspirin E.C. 81 MG Tablet PO (09:46)
[2022-06-02] MEDS: Vitamin E 400 UNITS Capsule PO (09:47)
[2022-06-02] MEDS: Methocarbamol 500 MG Tablet PO ×3 (09:47→18:00)
[2022-06-02] MEDS: Pantoprazole Sodium 40 MG Tablet PO (09:48)
[2022-06-02] MEDS: Triamcinolone 0.5% Cream 1 APPLIC TOPICAL (09:52)
--- NOTE | 2022-06-02 10:51 | CASEMGMT ---
Social Work SW spoke to [employer], Marimar Cain, and informed pt was admitted to [facility]. Marimar Cain reported pt is new to the program and only receives 10 home cooked meals per week. Marimar informed pt was being assessed for aides in the home but had not had this completed as of yet. KIT Ledesma
[2022-06-02 13:53] LABS: Bacteria 0 SEEN /hpf (None Seen); Mucous, Urine 0 SEEN /hpf (<or=2+); Red Blood Cells-Urine 0 SEEN /hpf (0-5); Squamous Epithelial Cells - UA 0 SEEN /hpf (5-10); White Blood Cells 0 SEEN /hpf (0-5)
[2022-06-02 13:55] LABS: Bedside Glucose 145 mg/dL (74-106)
[2022-06-02 13:57] LABS: Color, Urine Yellow (Yellow); Glucose, Dipstick Normal (Normal); Ketone-Dipstick Negative (Negative); Leukocyte Esterase-Dipstick Negative /ul (Negative); Nitrite-Dipstick Negative (Negative); Occult Blood-Urine Negative /ul (Negative); Protein-Dipstick Negative (Negative); Urine Bilirubin Dipstick Negative (Negative); Urine Clarity Clear (Clear); Urine Urobilinogen Normal (Normal)
[2022-06-02 15:29] VITALS: BP 116/48; PULSE 72; RESP 16; TEMP 36.6; O2SAT 94
[2022-06-02 16:00] LABS: Bedside Glucose 203 mg/dL (74-106)
--- NOTE | 2022-06-02 16:49 | TREXTCAR_ITS ---
Diet Diet Order/Speech Therapy: 05/27/22 23:23 Diet: Consistent Carb - Calorie Controlled Food consistency:: Regular Liquid Consistency:: Regular/Thin Dietary Modifications:: Cardiac / Heart Healthy How many daily calories?: 1800 calorie Routine Orders/Code Status O2 Frequency: Continuous Code Status: Full Code Wound(s) abdomen midline: Wound Type: surgical incision from many years ago right chavarria: Wound Type: Abrasion Therapies Weight Bearing: Full weight bearing Physical Therapy: Eval and Treat Occupational Therapy: Eval and Treat Problem/Diagnosis (1) Left hip pain: Status: Acute Code(s): M25.552 - Pain in left hip Plan: Intractable left hip pain, unclear specific etiology: Patient is admitted in PCU and MedSurg status. Patient on Lyrica and Cymbalta at home and gabapentin was added here. Patient on Subutex patch at home which is nonformulary therefore changed to lidocaine patch. Patient also on muscle relaxant, tizanidine. 05/29: No significant improvement in the pain and spasm. Tizanidine changed to methocarbamol. Patient on multiple medications as mentioned above. Being followed by orthopedic surgeon.CT hip reviewed by orthopedic surgeon and no acute concern. Pain control WBAT. 05/30: Pain over left lower extremity is better but now started hurting on right thigh area. Continue PT and OT and plan for discharge to SNF. 05/31: Patient still has back pain got exacerbated after PT but advised to continue. Patient might have osteoporosis but she is not candidate for oral bisphosphonate due to CKD stage IV. 06/01: I am concerned for this being radicular. Pt acknowledges that she has chronic back and is working with Dr. Wright. She and Dr. Wright are working on getting insurance approval for an MRI of her back. Barring any new radicular symptoms, I will not order an MRI of her back as this is not a new phenomenon. (2) Right leg pain: Status: Acute Code(s): M79.604 - Pain in right leg Plan: Worsened. concern for being radicular given known h/o back problems. pt denies any inciting event. Given worsening condition, will check an MRI of lumbar spine (3) Hyperglycemia: Status: Acute Code(s): R73.9 - Hyperglycemia, unspecified Plan: last a1c 6.7 from 04/03/22 steadily going up on insulin pump check UA. Plan Chronic stable conditions: * Ulcerative colitis status post colon proctectomy with ileostomy: Patient with significant history is chronically with high put output with acute kidney injury on chronic kidney disease, recent discharge 03/16/2022 following similar presentation with gastroenterology consultation at that time, continue cholestyramine, ursodiol, Lomotil and hyoscyamine. 05/29: Continue IV fluid support. 05/30: Creatinine 2.27. Discontinue IV fluid. Her stool output has more formed * CKD stage G4: Patient baseline creatinine is around 2.0, varies from 1.8-2.15, estimated creatinine clearance 31 mL/min.? Patient creatinine 1.98 at baseline. * CAD: s/p PCI x 9 secondary to failed CABG x 4, recent 07/2017 stress testing which was unremarkable, frequent presentations for chest pain, maintain on asa, Plavix, metoprolol, statin therapy. * Diabetes mellitus type 2 with gastroparesis: Glucose is controlled 108. Glucose 79 BMP. 05/30: Insulin pump is not functioning as she ran out of the insulin. Started on Accu-Chek ACHS with Humalog insulin 15 units 3 times daily with meals and Lantus insulin 10 units subcutaneous twice daily along with sliding scale insulin coverage. Hold scheduled insulin if glucose is less than 130 mg/dL. 05/31: As per nursing staff her insulin pump is running and she is refusing intermittent insulin that is okay if insulin pump is functioning. * History of NAFLD and fatty liver: ALT AST normal.? Current phosphatase 154, total bili 1.2.? Patient follows Dr. Andino.? Patient had liver biopsy in December 2020, macrovesicular stasis disease, F2/F3 by liver biopsy and elastography.? No cirrhosis.? Patient also has diabetes gastroparesis.? On ursodiol, vitamin D, vitamin D, statin and aspirin. * MGUS: Patient with history of low level IgA lambda monoclonal protein on routine blood testing with no evidence of endorgan damage from multiple myeloma with evidence of slow progressive CKD but certain * Hypertension: Continue home regimen including metoprolol and isosorbide with as needed hydralazine. * Hyperlipidemia: Continue home statin regimen. * Chronic COPD with chronic hypoxic respiratory failure: Patient with supplemental 2 L nasal cannula with exertion per history DuoNeb therapy, PRN albuterol, HOB, IS * Depression/Anxiety: Maintain on home duloxetine regimen. * Chronic pain syndrome: Maintain on chronic pregabalin and buprenorphine transdermal regimen. * Obesity: Weight loss and lifestyle changes encouraged. * Former tobacco usage: Encourage continued tobacco cessation. * ANKITA: BiPAP nightly. DVT prophylaxis: Heparin. CODE status: Full Discharge planning to SNF. Allergies/Procedures Done in Hospital Allergies ciprofloxacin Allergy (Intermediate, Verified 05/27/22 14:45) Swelling cinnamon [Cinnamon] Allergy (Verified 05/27/22 14:45) Anaphylaxis Influenza Virus Vaccines Allergy (Verified 05/27/22 14:45) Shortness of breath liraglutide [From Victoza] Allergy (Verified 05/27/22 14:45) Anaphylaxis metformin [From Glucophage] Allergy (Verified 05/27/22 14:45) NEEDS FOLLOW-UP metronidazole [From Flagyl] Allergy (Verified 05/27/22 14:45) Hives Metronidazole HCl [From Flagyl] Allergy (Verified 05/27/22 14:45) Hives Penicillins Allergy (Verified 05/27/22 14:45) Hives Sulfa (Sulfonamide Antibiotics) Allergy (Verified 05/27/22 14:45) Hives aripiprazole [From Abilify] Adverse Reaction (Verified 05/27/22 14:45) hallucinations codeine Adverse Reaction (Verified 05/27/22 14:45) Stops Ileostomy metformin HCl [From Glucophage] Adverse Reaction (Verified 05/27/22 14:45) Nausea ranolazine Adverse Reaction (Verified 05/27/22 14:45) Nausea/Vom/Diarrhea Dgxbaev-HVU-ZxN Reductase Inhibitor [Bcnxjct-Qiu-Goh Reductase Inhibitor] Adverse Reaction (Verified 05/27/22 14:45) Nausea/joints ache Type of Care/Length of Stay Estimated LOS: Convalescent Care Less Than 30 days Type of Care Needed: Skilled Rehab Potential: Fair Prognosis: Fair Additional Orders/Day of Discharge Day of Discharge: 06/02/22 Dietary and Speech Recommendations Dietitian Recommendations/Changes: Will add Cardiac diet to 1800 CCD diet to manage medical conditions. Discharge Plan Admission Admit Date/Time: 05/27/22 21:44 Primary Reason for Your Visit: radicular leg pain. Attending Provider: Shiva Chandler Primary Care Provider: Mala Mcgrath Consulting Providers: Henri Camacho ; Valentine Carreno ; Castillo Ferris Discharge Orders/Prescriptions Prescriptions: New hydrochlorothiazide 25 mg Tablet 25 mg PO DAILY Qty: 0 0RF insulin glargine-yfgn 100 unit/mL (3 mL) Insulin Pen 10 unit subcut BID Qty: 0 0RF insulin lispro [Humalog KwikPen Insulin] 100 unit/mL Insulin Pen See Protocol subcut ACHS Qty: 0 0RF Protocol: 4. Sliding Scale Insulin High-Med Dosing Condition: 150-199 mg/dl = 2 units Condition: 200-259 mg/dl = 4 units Condition: 260-324 mg/dl = 6 units Condition: 325-374 mg/dl = 8 units Condition: 375-409 mg/dl = 10 units Condition: 410-449 mg/dl = 11 units Condition: Greater than 449 call physician Protocol Text: - Use for Total Daily Dose of Insulin 56-80 units - Patient who are insulin resistant or septic HIGH MEDIUM DOSING ALGORITHM insulin lispro [Humalog KwikPen Insulin] 100 unit/mL Insulin Pen 15 unit subcut TIDAC Qty: 0 0RF melatonin 3 mg Tablet 3 mg PO QHS PRN PRN (Reason: Insomnia) Qty: 0 0RF lidocaine 5 % Adhesive Patch,Medicated 1 patch topical DAILY Qty: 0 0RF Protocol: *Topical Application Instructions APPLICATION INSTRUCTIONS: L hip oxycodone 5 mg Tablet 5 mg PO Q4H PRN PRN (Reason: Pain Score 4-10) 3 Days Qty: 12 0RF prednisone 20 mg tablet 40 mg PO DAILY Qty: 10 0RF Continued duloxetine 30 mg capsule,delayed release(DR/EC) 90 mg PO DAILY nitroglycerin 0.4 mg tablet, sublingual 0.4 mg sublingual Q5-15M PRN (Reason: chest pain) Qty: 25 6RF Rx Instructions: do not exceed 3 doses per episode metoclopramide HCl [Reglan] 5 mg tablet 5 mg PO BID vitamin E (dl, acetate) 180 mg (400 unit) capsule 360 mg PO DAILY (DME) True Metrix Glucose Test Strip Strip See Rx Instructions .Route Rx Instructions: 3 times per day No longer betamethasone dipropionate 0.05 % cream 1 applic topical DAILY PRN (Reason: Itching) metoprolol tartrate 25 mg tablet 75 mg PO BID Rx Instructions: Takes 25 mg + 50 mg tablet to + 75 mg BID ([facility] [place] Dexcom G6 Sensor Device See Rx Instructions .ROUTE .MEDSUPPLY Rx Instructions: 1 sensor every 10 days ([facility] [place]) Dexcom G6 Services Engineer Misc See Rx Instructions .ROUTE .MEDSUPPLY Rx Instructions: As directed ([facility] [place]) Dexcom G6 Transmitter Device See Rx Instructions .ROUTE .MEDSUPPLY Rx Instructions: 1 transmitter every 90 days ([facility] [place]) pen needle, diabetic [BD Ultra-Fine Key Pen Needle] 32 gauge x 5/32 needle See Rx Instructions .ROUTE .MEDSUPPLY Rx Instructions: takes 5 injection/day ([facility] [place]) Wheel Chair See Rx Instructions Rx Instructions: As directed buprenorphine 10 mcg/hour Patch Weekly 1 patch TRANSDERMAL Q7D Rx Instructions: changes on Saturdays loperamide [Imodium A-D] 2 mg capsule 2 mg PO Q6H PRN (Reason: loose stool) Qty: 20 0RF trazodone 50 mg Tablet 50 mg PO QHS dicyclomine 10 mg capsule 20 mg PO BREAKFAST Bentyl 10 mg capsule 10 mg OTHER QHS diphenoxylate-atropine [Lomotil] 2.5-0.025 mg tablet 1 tab PO TID PRN (Reason: diarrhea) Qty: 90 0RF atorvastatin 80 mg tablet 80 mg PO QHS Qty: 90 3RF Label Comments: cholesterol ondansetron 4 mg tablet,disintegrating 4 mg PO Q6H PRN (Reason: nausea and vomiting) Qty: 90 0RF hyoscyamine sulfate 0.125 mg tablet 0.125 mg PO Q6H PRN (Reason: dyspepsia) Qty: 60 2RF isosorbide dinitrate 30 mg tablet 30 mg PO BID Qty: 60 11RF ([facility] [place]) Omnipod 5 G6 Pods (Gen 5) Cartridge See Rx Instructions .Route Qty: 45 1RF Rx Instructions: 1 pod q 48 hours ([facility] [place]) ostomy supplies See Rx Instructions .Route .MEDSUPPLY Qty: 1 0RF Rx Instructions: Pouches Barrier rings Adhesive remover Skin Prep Barrier powder Farxiga 10 mg tablet 10 mg PO DAILY Qty: 90 1RF ursodiol 300 mg capsule 300 mg PO BID Qty: 180 1RF pantoprazole 40 mg tablet,delayed release (DR/EC) See Rx Instructions .ROUTE .COMPLEX Qty: 28 11RF Dose Instruction: TAKE 1 TABLET BY MOUTH DAILY FOR GERD Rx Instructions: TAKE 1 TABLET BY MOUTH DAILY FOR GERD Humalog KwikPen Insulin 200 unit/mL (3 mL) insulin pen 100 unit subcut .continuous Qty: 45 1RF pregabalin 75 mg capsule 75 mg PO BID Qty: 60 1RF Held aspirin 81 mg Tablet,Delayed Release (Dr/Ec) 81 mg PO DAILY Hold Instructions: Resume on 06/10/22. clopidogrel 75 mg tablet 75 mg PO DAILY Qty: 90 3RF Hold Instructions: Resume on 06/10/22. Rx Instructions: TAKE 1 TABLET BY MOUTH EVERY DAY Discontinued (DME) Insulin Basal Pump (Pt's Own) [Pump, Basal] See Rx Instructions Rx Instructions: use as directed tramadol 50 mg Tablet 50 mg PO Q6H PRN (Reason: Pain) Referrals / Follow Up: Clark Wright MD [Med Staff - Active Staff] - 06/04/22 10:45 am Mala Mcgrath MD [Primary Care Provider] - Within 2 Weeks Disposition Disposition (needs filled in before D/C Order can be placed): Detention Facility
--- NOTE | 2022-06-02 17:06 | PCM.DC.SUM ---
Providers Date of Admission: 05/27/22 Primary Care Physician: Dr. Mala Mcgrath MD Consultations 05/27/22 23:22 Consult: Orthopedics Routine Consulting Provider: Henri Camacho Reason for Consult: Intractable L hip pain EMERGENT Consult: No MD Notified: Yes Date Notified: 05/27/22 Time Notified: 21:47 Method of Notification: Text Reason For Visit: INTRACTABLE L HIP PAIN Diagnosis Discharge Diagnosis (1) Left hip pain: Status: Acute Code(s): M25.552 - Pain in left hip Plan: Intractable left hip pain, unclear specific etiology: Patient is admitted in PCU and MedSurg status. Patient on Lyrica and Cymbalta at home and gabapentin was added here. Patient on Subutex patch at home which is nonformulary therefore changed to lidocaine patch. Patient also on muscle relaxant, tizanidine. 05/29: No significant improvement in the pain and spasm. Tizanidine changed to methocarbamol. Patient on multiple medications as mentioned above. Being followed by orthopedic surgeon.CT hip reviewed by orthopedic surgeon and no acute concern. Pain control WBAT. 05/30: Pain over left lower extremity is better but now started hurting on right thigh area. Continue PT and OT and plan for discharge to SNF. 05/31: Patient still has back pain got exacerbated after PT but advised to continue. Patient might have osteoporosis but she is not candidate for oral bisphosphonate due to CKD stage IV. 06/01: I am concerned for this being radicular. Pt acknowledges that she has chronic back and is working with Dr. Wright. She and Dr. Wright are working on getting insurance approval for an MRI of her back. Barring any new radicular symptoms, I will not order an MRI of her back as this is not a new phenomenon. 06/02: shows L5-S1 compression of exiting nerve roots. DW Dr. Wright. Pt has appointment on 06/04. She will hold her clopidogrel and ASA. Tentative epidural for next week (06/09/22). (2) Right leg pain: Status: Acute Code(s): M79.604 - Pain in right leg Plan: Worsened. concern for being radicular given known h/o back problems. pt denies any inciting event. Given worsening condition, will check an MRI of lumbar spine (3) Hyperglycemia: Status: Acute Code(s): R73.9 - Hyperglycemia, unspecified Plan: last a1c 6.7 from 04/03/22 steadily going up on insulin pump check UA. Plan Chronic stable conditions: Ulcerative colitis status post colon proctectomy with ileostomy: Patient with significant history is chronically with high put output with acute kidney injury on chronic kidney disease, recent discharge 03/16/2022 following similar presentation with gastroenterology consultation at that time, continue cholestyramine, ursodiol, Lomotil and hyoscyamine. 05/29: Continue IV fluid support. 05/30: Creatinine 2.27. Discontinue IV fluid. Her stool output has more formed CKD stage G4: Patient baseline creatinine is around 2.0, varies from 1.8-2.15, estimated creatinine clearance 31 mL/min.? Patient creatinine 1.98 at baseline. CAD: s/p PCI x 9 secondary to failed CABG x 4, recent 07/2017 stress testing which was unremarkable, frequent presentations for chest pain, maintain on asa, Plavix, metoprolol, statin therapy. Diabetes mellitus type 2 with gastroparesis: Glucose is controlled 108. Glucose 79 BMP. 05/30: Insulin pump is not functioning as she ran out of the insulin. Started on Accu-Chek ACHS with Humalog insulin 15 units 3 times daily with meals and Lantus insulin 10 units subcutaneous twice daily along with sliding scale insulin coverage. Hold scheduled insulin if glucose is less than 130 mg/dL. 05/31: As per nursing staff her insulin pump is running and she is refusing intermittent insulin that is okay if insulin pump is functioning. History of NAFLD and fatty liver: ALT AST normal.? Current phosphatase 154, total bili 1.2.? Patient follows Dr. Andino.? Patient had liver biopsy in December 2020, macrovesicular stasis disease, F2/F3 by liver biopsy and elastography.? No cirrhosis.? Patient also has diabetes gastroparesis.? On ursodiol, vitamin D, vitamin D, statin and aspirin. MGUS: Patient with history of low level IgA lambda monoclonal protein on routine blood testing with no evidence of endorgan damage from multiple myeloma with evidence of slow progressive CKD but certain Hypertension: Continue home regimen including metoprolol and isosorbide with as needed hydralazine. Hyperlipidemia: Continue home statin regimen. Chronic COPD with chronic hypoxic respiratory failure: Patient with supplemental 2 L nasal cannula with exertion per history DuoNeb therapy, PRN albuterol, HOB, IS Depression/Anxiety: Maintain on home duloxetine regimen. Chronic pain syndrome: Maintain on chronic pregabalin and buprenorphine transdermal regimen. Obesity: Weight loss and lifestyle changes encouraged. Former tobacco usage: Encourage continued tobacco cessation. ANKITA: BiPAP nightly. DVT prophylaxis: Heparin. CODE status: Full Discharge planning to SNF. Medications at Discharge Home Medications aspirin 81 mg tablet,delayed release 81 mg PO DAILY Check with primary doctor 04/08/21 diphenoxylate-atropine 2.5 mg-0.025 mg tablet (Lomotil) 1 tab PO TID PRN diarrhea #90 tabs 05/19/21 atorvastatin 80 mg tablet 80 mg PO QHS CHOLESTEROL LOWERING #90 tabs 08/29/21 duloxetine 30 mg capsule,delayed release 90 mg PO DAILY Check with primary doctor 10/06/21 vitamin E (dl, acetate) 180 mg (400 unit) capsule 360 mg PO DAILY vitamin 10/15/21 hyoscyamine sulfate 0.125 mg tablet 0.125 mg PO Q6H PRN dyspepsia #60 tabs 11/04/21 ondansetron 4 mg disintegrating tablet 4 mg PO Q6H PRN nausea and vomiting #90 tabs 11/04/21 Wheel Chair 11/15/21 betamethasone dipropionate 0.05 % topical cream 1 applic topical DAILY PRN Itching 11/15/21 blood sugar diagnostic (True Metrix Glucose Test Strip) 11/15/21 blood-glucose meter,continuous (DexGeomagic G6 Manager Animation) 11/15/21 blood-glucose sensor (Stick and Play G6 Sensor device) 11/15/21 blood-glucose transmitter (Stick and Play G6 Transmitter device) 11/15/21 metoprolol tartrate 25 mg tablet 75 mg PO BID bp 11/15/21 pen needle, diabetic 32 gauge x 32 (BD Ultra-Fine Key Pen Needle) 11/15/21 buprenorphine 10 mcg/hour weekly transdermal patch 1 patch transdermal Q7D pain 11/18/21 loperamide 2 mg capsule (Imodium A-D) 2 mg PO Q6H PRN loose stool #20 caps 11/18/21 nitroglycerin 0.4 mg sublingual tablet 0.4 mg sublingual Q5-15M PRN chest pain #25 tabs 11/20/21 isosorbide dinitrate 30 mg tablet 30 mg PO BID heart #60 tabs 01/16/22 insulin pump cart,automated,BT (Omnipod 5 G6 Pods (Gen 5) subcutaneous cartridge) #45 ea 02/09/22 ostomy supplies #1 ea 02/13/22 dicyclomine 10 mg capsule 20 mg PO BREAKFAST Check with primary doctor 03/14/22 trazodone 50 mg tablet 50 mg PO QHS sleep 03/14/22 clopidogrel 75 mg tablet 75 mg PO DAILY Check with primary doctor #90 tabs 03/16/22 dapagliflozin 10 mg tablet (Farxiga) 10 mg PO DAILY #90 tabs 03/19/22 ursodiol 300 mg capsule 300 mg PO BID Check with primary doctor #180 caps 03/19/22 metoclopramide HCl 5 mg tablet (Reglan) 5 mg PO BID reflux 04/03/22 pantoprazole 40 mg tablet,delayed release See Rx Instructions .Route .COMPLEX #28 tabs 04/07/22 insulin lispro 200 unit/mL (3 mL) subcutaneous pen (Humalog KwikPen U-200 Insulin) 100 unit (0.5 mL) subcut .continuous #45 mL 04/15/22 pregabalin 75 mg capsule 75 mg PO BID pain #60 caps 05/08/22 Bentyl 10 mg OTHER QHS Check with primary doctor 05/27/22 hydrochlorothiazide 25 mg tablet 25 mg PO DAILY #0 tabs 06/02/22 insulin glargine-yfgn 100 unit/mL (3 mL) subcutaneous pen 10 unit (0.1 mL) subcut BID #0 mL 06/02/22 insulin lispro 100 unit/mL subcutaneous pen (Humalog KwikPen (U-100) Insulin) 15 unit (0.15 mL) subcut TIDAC #0 mL 06/02/22 insulin lispro 100 unit/mL subcutaneous pen (Humalog KwikPen (U-100) Insulin) See Protocol subcut ACHS #0 mL 06/02/22 lidocaine 5 % topical patch 1 patch topical DAILY #0 ea 06/02/22 melatonin 3 mg tablet 3 mg PO QHS PRN PRN Insomnia #0 tabs 06/02/22 oxycodone 5 mg tablet 5 mg PO Q4H PRN PRN Pain Score 4-10 3 days #12 tabs 06/02/22 prednisone 20 mg tablet 40 mg PO DAILY #10 tabs 06/02/22 Hospital Course Operations None Procedures None Summary of Care Provided Minutes Spent on Discharge: 45 Weight / BMI Weight Weight: 91.3 kg Body Mass Index (BMI) 31.5 ABG / Lab / Microbiology Data Result Diagrams: 06/01/22 05:24 06/01/22 05:24 Laboratory: Laboratory Results - last 24 hr 06/02/22 13:34: POC Glucose 145 H 06/02/22 13:40: Urine Color Yellow, Urine Clarity Clear, Urine pH 6.0, Ur Specific [place] 1.010, Urine Protein Negative, Urine Glucose (UA) Normal, Urine Ketones Negative, Urine Occult Blood Negative, Urine Nitrite Negative, Urine Bilirubin Negative, Urine Urobilinogen Normal, Ur Leukocyte Esterase Negative, Urine RBC 0 SEEN, Urine WBC 0 SEEN, Ur Squamous Epith Cells 0 SEEN, Urine Bacteria 0 SEEN, Urine Mucus 0 SEEN 06/02/22 15:36: POC Glucose 203 H Radiography Diagnostic Testing: Radiology Impression Lumbar Spine MRI 06/02/22 08:44 IMPRESSION: Multilevel degenerative changes from L4 to S1, as described above. L4-5: Right neural foraminal stenosis. Small annular tear but no spinal stenosis. Hemangioma of L4. Disc desiccation. L5-S1: Bilateral neural foraminal stenosis. Compression of exiting nerve roots. Posterior disc bulge osteophyte complex. Disc desiccation. Electronically Signed: Cesar Bear MD at 15:34 EDT Reading Location ID and State: [facility] / [place] , Service support , Meaningful Use Info Meaningful Use Diagnoses (Choose all that apply): None applicable Discharge Plan Admission Admit Date/Time: 05/27/22 21:44 Primary Reason for Your Visit: radicular leg pain. Attending Provider: Shiva Chandler Primary Care Provider: Mala Mcgrath Consulting Providers: Henri Camacho ; Valentine Carreno ; Castillo Ferris Discharge Orders/Prescriptions Prescriptions: New hydrochlorothiazide 25 mg Tablet 25 mg PO DAILY Qty: 0 0RF insulin glargine-yfgn 100 unit/mL (3 mL) Insulin Pen 10 unit subcut BID Qty: 0 0RF insulin lispro [Humalog KwikPen Insulin] 100 unit/mL Insulin Pen See Protocol subcut ACHS Qty: 0 0RF Protocol: 4. Sliding Scale Insulin High-Med Dosing Condition: 150-199 mg/dl = 2 units Condition: 200-259 mg/dl = 4 units Condition: 260-324 mg/dl = 6 units Condition: 325-374 mg/dl = 8 units Condition: 375-409 mg/dl = 10 units Condition: 410-449 mg/dl = 11 units Condition: Greater than 449 call physician Protocol Text: - Use for Total Daily Dose of Insulin 56-80 units - Patient who are insulin resistant or septic HIGH MEDIUM DOSING ALGORITHM insulin lispro [Humalog KwikPen Insulin] 100 unit/mL Insulin Pen 15 unit subcut TIDAC Qty: 0 0RF melatonin 3 mg Tablet 3 mg PO QHS PRN PRN (Reason: Insomnia) Qty: 0 0RF lidocaine 5 % Adhesive Patch,Medicated 1 patch topical DAILY Qty: 0 0RF Protocol: *Topical Application Instructions APPLICATION INSTRUCTIONS: L hip oxycodone 5 mg Tablet 5 mg PO Q4H PRN PRN (Reason: Pain Score 4-10) 3 Days Qty: 12 0RF prednisone 20 mg tablet 40 mg PO DAILY Qty: 10 0RF Continued duloxetine 30 mg capsule,delayed release(DR/EC) 90 mg PO DAILY nitroglycerin 0.4 mg tablet, sublingual 0.4 mg sublingual Q5-15M PRN (Reason: chest pain) Qty: 25 6RF Rx Instructions: do not exceed 3 doses per episode metoclopramide HCl [Reglan] 5 mg tablet 5 mg PO BID vitamin E (dl, acetate) 180 mg (400 unit) capsule 360 mg PO DAILY (DME) True Metrix Glucose Test Strip Strip See Rx Instructions .Route Rx Instructions: 3 times per day No longer betamethasone dipropionate 0.05 % cream 1 applic topical DAILY PRN (Reason: Itching) metoprolol tartrate 25 mg tablet 75 mg PO BID Rx Instructions: Takes 25 mg + 50 mg tablet to + 75 mg BID (DME) Dexcom G6 Sensor Device See Rx Instructions .ROUTE .MEDSUPPLY Rx Instructions: 1 sensor every 10 days (DME) Dexcom G6 Manager Animation Misc See Rx Instructions .ROUTE .MEDSUPPLY Rx Instructions: As directed ([facility]) Dexcom G6 Transmitter Device See Rx Instructions .ROUTE .MEDSUPPLY Rx Instructions: 1 transmitter every 90 days ([facility]) pen needle, diabetic [BD Ultra-Fine Key Pen Needle] 32 gauge x 5/32 needle See Rx Instructions .ROUTE .MEDSUPPLY Rx Instructions: takes 5 injection/day ([facility]) Wheel Chair See Rx Instructions Rx Instructions: As directed buprenorphine 10 mcg/hour Patch Weekly 1 patch TRANSDERMAL Q7D Rx Instructions: changes on Saturdays loperamide [Imodium A-D] 2 mg capsule 2 mg PO Q6H PRN (Reason: loose stool) Qty: 20 0RF trazodone 50 mg Tablet 50 mg PO QHS dicyclomine 10 mg capsule 20 mg PO BREAKFAST Bentyl 10 mg capsule 10 mg OTHER QHS diphenoxylate-atropine [Lomotil] 2.5-0.025 mg tablet 1 tab PO TID PRN (Reason: diarrhea) Qty: 90 0RF atorvastatin 80 mg tablet 80 mg PO QHS Qty: 90 3RF Label Comments: cholesterol ondansetron 4 mg tablet,disintegrating 4 mg PO Q6H PRN (Reason: nausea and vomiting) Qty: 90 0RF hyoscyamine sulfate 0.125 mg tablet 0.125 mg PO Q6H PRN (Reason: dyspepsia) Qty: 60 2RF isosorbide dinitrate 30 mg tablet 30 mg PO BID Qty: 60 11RF ([facility]) Omnipod 5 G6 Pods (Gen 5) Cartridge See Rx Instructions .Route Qty: 45 1RF Rx Instructions: 1 pod q 48 hours ([facility]) ostomy supplies See Rx Instructions .Route .MEDSUPPLY Qty: 1 0RF Rx Instructions: Pouches Barrier rings Adhesive remover Skin Prep Barrier powder Farxiga 10 mg tablet 10 mg PO DAILY Qty: 90 1RF ursodiol 300 mg capsule 300 mg PO BID Qty: 180 1RF pantoprazole 40 mg tablet,delayed release (DR/EC) See Rx Instructions .ROUTE .COMPLEX Qty: 28 11RF Dose Instruction: TAKE 1 TABLET BY MOUTH DAILY FOR GERD Rx Instructions: TAKE 1 TABLET BY MOUTH DAILY FOR GERD Humalog KwikPen Insulin 200 unit/mL (3 mL) insulin pen 100 unit subcut .continuous Qty: 45 1RF pregabalin 75 mg capsule 75 mg PO BID Qty: 60 1RF Held aspirin 81 mg Tablet,Delayed Release (Dr/Ec) 81 mg PO DAILY Hold Instructions: Resume on 06/10/22. clopidogrel 75 mg tablet 75 mg PO DAILY Qty: 90 3RF Hold Instructions: Resume on 06/10/22. Rx Instructions: TAKE 1 TABLET BY MOUTH EVERY DAY Discontinued (DME) Insulin Basal Pump (Pt's Own) [Pump, Basal] See Rx Instructions Rx Instructions: use as directed tramadol 50 mg Tablet 50 mg PO Q6H PRN (Reason: Pain) Referrals / Follow Up: Clark Wright MD [Med Staff - Active Staff] - 06/04/22 10:45 am Mala Mcgrath MD [Primary Care Provider] - Within 2 Weeks Disposition Disposition (needs filled in before D/C Order can be placed): [facility] Charges/Coding Visit Charges Inpatient E&M: 60385 Disch Hosp >30min
--- NOTE | 2022-06-02 19:21 | NURSING ---
report called to correction
[2022-06-02 20:20] VITALS: PULSE 72; RESP 16; O2SAT 94
--- NOTE | 2022-06-03 08:31 | CASEMGMT ---
Social Work SW faxed discharge summary to JAYRO RAINEY, Marimar Cain, at this time. KIT Ledesma
--- NOTE | 2022-06-08 08:08 | CASEMGMT ---
Social Work Late entry for 06/02/22- [facility] informed precert had been obtained. SW notified MD Chandler. shared intent to wait for pt cultures before planning to discharge. SW updated pt that insurance auth had been obtained. Pt voiced understanding. KIT Ledesma
== END 2022-06-02 20:21 | disposition skilled nursing facility (03) ==
LOC: ED 21:50 → PCU 22:07 → MS3 05-29 22:27
PROVIDERS: Internal Medicine; Admitting Provider Family Medicine; Emergency Provider Emergency Medicine; PCP Internal Medicine
DX: M25.552 Pain in left hip (principal); E11.51 Type 2 diabetes mellitus with diabetic peripheral angiopathy without gangrene; Z93.3 Colostomy status; J44.9 Chronic obstructive pulmonary disease, unspecified; I50.32 Chronic diastolic (congestive) heart failure; I13.0 Hypertensive heart and chronic kidney disease with heart failure and stage 1 through stage 4 chronic kidney disease, or unspecified chronic kidney disease; I27.21 Secondary pulmonary arterial hypertension; E11.43 Type 2 diabetes mellitus with diabetic autonomic (poly)neuropathy; E11.22 Type 2 diabetes mellitus with diabetic chronic kidney disease; E11.42 Type 2 diabetes mellitus with diabetic polyneuropathy; N18.4 Chronic kidney disease, stage 4 (severe); J96.11 Chronic respiratory failure with hypoxia; Z79.4 Long term (current) use of insulin; F41.8 Other specified anxiety disorders; G89.4 Chronic pain syndrome; Z87.891 Personal history of nicotine dependence; Z79.02 Long term (current) use of antithrombotics/antiplatelets; E78.00 Pure hypercholesterolemia, unspecified; Z79.891 Long term (current) use of opiate analgesic; I25.10 Atherosclerotic heart disease of native coronary artery without angina pectoris; Z86.16 Personal history of COVID-19; Z79.82 Long term (current) use of aspirin; Z79.899 Other long term (current) drug therapy; D63.1 Anemia in chronic kidney disease; G47.33 Obstructive sleep apnea (adult) (pediatric); E66.9 Obesity, unspecified; Z68.31 Body mass index [BMI] 31.0-31.9, adult; K21.9 Gastro-esophageal reflux disease without esophagitis; Z99.81 Dependence on supplemental oxygen; D47.2 Monoclonal gammopathy; Z95.1 Presence of aortocoronary bypass graft; M79.605 Pain in left leg; K76.0 Fatty (change of) liver, not elsewhere classified
CPT/HCPCS: 36415; 72148; 73502; 73700; 80048; 80053; 81001; 82962; 85025; 87086; 87088; 93922; 94640; 94668; 96361; 96372; 96374; 96375; 97110; 97116; 97162; 97166; 97530; 97535; 97802; 97803; 99221; 99284; J7120; A4216; G0378; J2405

== ENCOUNTER → 2022-06-03 | Outpatient (REF) | payer MEDICARE, MEDICAID, SELFPAY ==
[2020-11-27 10:47] VITALS: BMI 30.9
[2022-06-03 07:32] LABS: Absolute Lymphocyte Count 2.32 X10^3/uL (0.83-4.51); Absolute Neutrophil Count 5.4 X10^3/uL (2.0-7.7); Basophil# 0.06 X10^3/uL; Basophil% 0.7 % (0-1); Eosinophil# 0.34 X10^3/uL; Eosinophils% 3.8 % (0-5); Hemoglobin 12.3 g/dL (12.0-15.0); Lymphocyte # 2.32 X10^3/ul (0.83-4.51); Lymphocyte % 26.2 % (19-41); Mean Corp Hgb Conc 31.5 g/dL (32-36); Mean Corpuscular Hgb 27.4 pg (27.0-32.0); Mean Corpuscular Volume 86.9 fL (81-99); Mean Platelet Vol. 12.5 fl (6.2-12.0); Monocyte# 0.61 X10^3/uL; Monocyte% 6.9 % (0-10); NRBC Flagged by Analyzer 0 % (0-5); Neutrophil # 5.37 X10^3/uL (2.7-7.7); Neutrophil % 60.8 % (47-70); Platelet Count 205 K/mm3 (150-450); RBC Distribution Width CV 14.6 % (11.6-14.6); RBC Distribution Width SD 46.8 fl (35.1-43.9); Red Blood Count 4.49 M/mm3 (4.2-5.4); White Blood Count 8.8 K/mm3 (4.4-11.0)
[2022-06-03 07:53] LABS: ALB/GLOB Ratio 0.6 RATIO (0.9-2.4); AST(SGOT) 15 U/L (15-37); Alanine Aminotransfer ALT/SGPT 19 U/L (13-56); Albumin, Serum 2.7 g/dL (3.2-5.0); Alkaline Phosphatase 165 U/L (45-117); Anion Gap 6 (5-15); BUN 36 mg/dL (7-18); BUN/Creat Ratio 19.1 RATIO (10-20); Calcium,Total 9.2 mg/dL (8.5-10.1); Chloride 102 mmol/L (98-107); Creatinine, Serum 1.88 mg/dL (0.55-1.02); EST Glomerular Filtration Rate 29 mL/min (>60); Est Glom Filt Rate - Afr Amer 35 mL/min (>60); Globulin 4.6 g/dL (2.2-4.2); Glucose 187 mg/dL (74-106); Magnesium 1.5 mg/dL (1.6-2.6); Potassium 3.3 mmol/L (3.5-5.1); Protein, Total 7.3 g/dL (6.4-8.2); Sodium Level 136 mmol/L (136-145)
[2022-06-03 09:08] LABS: Vitamin B12 315 pg/mL (211-911)
[2022-06-03 10:36] LABS: Hemoglobin A1c 6.9 % (3.8-5.6)
== END ==
LOC: OLS.SW 05:00
PROVIDERS: PCP Internal Medicine; Visit Provider Internal Medicine
DX: Z02.2 Encounter for examination for admission to residential institution (principal); I11.0 Hypertensive heart disease with heart failure; I50.9 Heart failure, unspecified; J44.9 Chronic obstructive pulmonary disease, unspecified; E78.5 Hyperlipidemia, unspecified; E55.9 Vitamin D deficiency, unspecified; Z79.899 Other long term (current) drug therapy
CPT/HCPCS: 36415; 80053; 82306; 82607; 83036; 83735; 85025

== ENCOUNTER 2022-07-21 12:46 | Outpatient (CLI) | payer MEDICARE, MEDICAID, SELFPAY ==
[2020-11-27 10:47] VITALS: BMI 30.9
[2022-07-21] MEDS: 0.9% NaCl Peripheral Flush Adult/Peds IV (13:01)
[2022-07-21] MEDS: 0.9% Normal Saline 1,000 ML 999 ML IV ×2 (13:06→14:14)
[2022-07-21 13:08] VITALS: BP 124/67; PULSE 64; RESP 16; O2SAT 97; BMI 31.3
[2022-07-21 15:27] VITALS: BP 130/70; PULSE 68; RESP 16
== END 2022-07-21 12:47 | disposition home or self-care (01) ==
LOC: MEDOUTP 12:46
PROVIDERS: PCP Internal Medicine; Referring Provider Internal Medicine Gastroenterology; Visit Provider Internal Medicine Gastroenterology
DX: R19.8 Other specified symptoms and signs involving the digestive system and abdomen (principal)
CPT/HCPCS: 96360; 96361; J7030; A4216

== ENCOUNTER → 2022-07-28 | Outpatient (CLI) | payer MEDICARE, MEDICAID, SELFPAY ==
[2020-11-27 10:47] VITALS: BMI 30.9
[2022-07-28 20:23] LABS: Hemoglobin A1c 7.2 % (3.8-5.6)
== END | disposition home or self-care (01) ==
LOC: LAB 15:55
PROVIDERS: PCP Internal Medicine; Referring Provider Nurse Practitioner Family; Visit Provider Nurse Practitioner Family
DX: E11.65 Type 2 diabetes mellitus with hyperglycemia (principal); Z79.4 Long term (current) use of insulin
CPT/HCPCS: 36415; 83036

== ENCOUNTER 2022-08-05 11:12 | Outpatient (CLI) | payer MEDICARE, MEDICAID, SELFPAY ==
[2020-11-27 10:47] VITALS: BMI 30.9
[2022-08-05] MEDS: 0.9% Normal Saline 1,000 ML 999 ML IV ×2 (11:34→12:39)
[2022-08-05] MEDS: 0.9% NaCl Peripheral Flush Adult/Peds IV (11:36)
[2022-08-05 11:37] VITALS: BP 134/60; PULSE 73; RESP 16; TEMP 35.9; O2SAT 96; BMI 31.8
[2022-08-05 13:51] VITALS: BP 145/61; PULSE 67; RESP 16; TEMP 35.8; O2SAT 97
== END 2022-08-05 11:13 | disposition home or self-care (01) ==
LOC: MEDOUTP 11:12
PROVIDERS: PCP Internal Medicine; Referring Provider Internal Medicine Gastroenterology; Visit Provider Internal Medicine Gastroenterology
DX: R19.8 Other specified symptoms and signs involving the digestive system and abdomen (principal)
CPT/HCPCS: 96360; 96361; J7030; A4216

== ENCOUNTER 2022-08-19 11:12 | Outpatient (CLI) | payer MEDICARE, MEDICAID, SELFPAY ==
[2020-11-27 10:47] VITALS: BMI 30.9
[2022-08-19] MEDS: 0.9% NaCl Peripheral Flush Adult/Peds IV (11:15)
[2022-08-19] MEDS: 0.9% Normal Saline 1,000 ML 999 ML IV ×2 (11:20→12:57)
[2022-08-19 11:35] VITALS: BP 102/52; PULSE 66; RESP 16; O2SAT 94; BMI 31.3
[2022-08-19 14:18] VITALS: BP 153/78; PULSE 70; RESP 18
== END 2022-08-19 11:13 | disposition home or self-care (01) ==
LOC: MEDOUTP 11:12
PROVIDERS: PCP Internal Medicine; Referring Provider Internal Medicine Gastroenterology; Visit Provider Internal Medicine Gastroenterology
DX: R19.8 Other specified symptoms and signs involving the digestive system and abdomen (principal)
CPT/HCPCS: 96361; 96360; J7030; A4216

== ENCOUNTER 2022-09-01 19:08 | Inpatient (IN) | payer MEDICARE, MEDICAID, SELFPAY ==
[2020-11-27 10:47] VITALS: BMI 30.9
[2022-09-01 19:09] VITALS: BP 131/83; PULSE 122; RESP 19; TEMP 36.3; O2SAT 94; BMI 31.5
--- NOTE | 2022-09-01 19:22 | EKG12_ITS ---
Test Reason : CP Blood Pressure : / mmHG Vent. Rate : 105 BPM Atrial Rate : 105 BPM P-R Int : 166 ms QRS Dur : 090 ms QT Int : 318 ms P-R-T Axes : 031 -39 149 degrees QTc Int : 420 ms Sinus tachycardia Left axis deviation Left ventricular hypertrophy with repolarization abnormality Abnormal ECG Confirmed by CHLOÉ DOMINGUEZ, AL ([id number]), story editor ISABELLA BUTLER ([id number]) on 09/02/2022 10:05:56 AM Referred By: LUCINDA Confirmed By:AL LUEVANO MD
--- NOTE | 2022-09-01 19:33 | ED.VIS.GI ---
HPI HPI - GI History of Present Illness Chief Complaint: Abd Pain Informant: patient and friend Narrative Narrative: Patient presents with abdominal discomfort nausea vomiting and high output ostomy. This patient has a history of ulcerative colitis had toxic megacolon and had a ileostomy placed. She generally has relatively high output but she states she only has to change her bag about twice a day. She does go in once every 2 weeks for IV fluids to maintain hydration. She has had problems when her gastroparesis acts up she gets high output ostomy and has had problems with acute kidney injury. She feels like that is what is happening. About 24 hours ago she started with nausea vomiting abdominal cramping and what she describes as water in her ostomy and she has changed the bag as frequently as every 15 minutes. She is not urinating now which is not typical for her. She feels overall weak. She is not having chest pain or trouble breathing. She is not having fevers or chills. No blood has been seen in the ostomy output. [facility] Medical History Acute kidney injury Anxiety Anxiety and depression Arthritis Avascular necrosis of bone of left hip BiPAP (biphasic positive airway pressure) dependence BMI 31.0-31.9,adult CAD (coronary artery disease) Cardiology follow-up encounter Cellulitis, abdominal wall Chronic back pain Chronic diastolic (congestive) heart failure Chronic narcotic use Chronic respiratory failure Chronic respiratory failure with hypoxia, on home O2 therapy CKD (chronic kidney disease), stage IV COPD (chronic obstructive pulmonary disease) Depression with anxiety Diabetic gastroparesis DM2 (diabetes mellitus, type 2) Elevated anti-tissue transglutaminase (tTG) IgA level Fatty liver FCHL (familial combined hyperlipidemia) Former smoker Gastric reflux Gastroparesis High output ileostomy History of COVID-19 Hx of diabetic gastroparesis Hyperlipidemia Hypertension Ileostomy present Insulin dependent diabetes mellitus Left shoulder pain Liver mass Loss of hearing Menieres disease MGUS (monoclonal gammopathy of unknown significance) Migraine headache Myoclonic jerking Non-alcoholic fatty liver disease Nonalcoholic steatohepatitis Obesity Obstructive sleep apnea Psoriasis Secondary pulmonary arterial hypertension Short bowel syndrome Smoking greater than 20 pack years Type 2 diabetes mellitus with diabetic polyneuropathy Ulcerative colitis Vitamin D deficiency Walker as ambulation aid Wears glasses Home Medications aspirin 81 mg tablet,delayed release 81 mg PO DAILY Check with primary doctor 04/08/21 [History Last Taken 05/27/22] diphenoxylate-atropine 2.5 mg-0.025 mg tablet (Lomotil) 1 tab PO TID PRN diarrhea #90 tabs 05/19/21 [Rx Last Taken 05/17/22] duloxetine 30 mg capsule,delayed release 90 mg PO DAILY Check with primary doctor 10/06/21 [History Last Taken 05/27/22] hyoscyamine sulfate 0.125 mg tablet 0.125 mg PO Q6H PRN dyspepsia #60 tabs 11/04/21 [Rx Last Taken 05/25/22] ondansetron 4 mg disintegrating tablet 4 mg PO Q6H PRN nausea and vomiting #90 tabs 11/04/21 [Rx Last Taken 05/26/22] Wheel Chair 11/15/21 [History Last Taken Unknown] blood sugar diagnostic (True Metrix Glucose Test Strip) 11/15/21 [History Last Taken Unknown] blood-glucose meter,continuous (Dexcom G6 Director Of Retail Marketing) 11/15/21 [History Last Taken Unknown] pen needle, diabetic 32 gauge x 5/32 (BD Ultra-Fine Key Pen Needle) 11/15/21 [History Last Taken Unknown] buprenorphine 10 mcg/hour weekly transdermal patch 1 patch transdermal Q7D pain 11/18/21 [History Last Taken 05/23/22] loperamide 2 mg capsule (Imodium A-D) 2 mg PO Q6H PRN loose stool #20 caps 11/18/21 [Rx Last Taken 05/14/22] nitroglycerin 0.4 mg sublingual tablet 0.4 mg sublingual Q5-15M PRN chest pain #25 tabs 11/20/21 [Rx Last Taken Unknown] isosorbide dinitrate 30 mg tablet 30 mg PO BID heart #60 tabs 01/16/22 [Rx Last Taken 05/27/22] ostomy supplies #1 ea 02/13/22 [Rx Last Taken Unknown] dicyclomine 10 mg capsule 20 mg PO BREAKFAST Check with primary doctor 03/14/22 [History Last Taken 05/27/22] trazodone 50 mg tablet 50 mg PO QHS sleep 03/14/22 [History Last Taken 05/26/22] clopidogrel 75 mg tablet 75 mg PO DAILY Check with primary doctor #90 tabs 03/16/22 [Rx Last Taken 05/27/22] dapagliflozin propanediol 10 mg tablet (Farxiga) 10 mg PO DAILY #90 tabs 03/19/22 [Rx Last Taken 05/27/22] metoclopramide HCl 5 mg tablet (Reglan) 5 mg PO BID reflux 04/03/22 [History Last Taken 05/25/22] pantoprazole 40 mg tablet,delayed release See Rx Instructions .Route .COMPLEX #28 tabs 04/07/22 [Rx Last Taken 05/27/22] insulin lispro 100 unit/mL subcutaneous pen (Humalog KwikPen (U-100) Insulin) See Protocol subcut ACHS #0 mL 06/02/22 [Rx Last Taken Unknown] blood-glucose sensor (Dexcom G6 Sensor device) #9 ea 06/11/22 [Rx Last Taken Unknown] melatonin 3 mg tablet 5 mg PO QHS PRN PRN Insomnia 07/06/22 [History Last Taken Unknown] lamotrigine 100 mg tablet 100 mg PO DAILY 07/20/22 [History Last Taken Unknown] metoprolol tartrate 25 mg tablet 25 mg PO .COMPLEX bp #180 tabs 07/28/22 [Rx Last Taken Unknown] metoprolol tartrate 50 mg tablet 50 mg PO .COMPLEX #180 tabs 07/28/22 [Rx Last Taken Unknown] insulin pump cart,automated,BT (Omnipod 5 G6 Pods (Gen 5) subcutaneous cartridge) #45 ea 07/31/22 [Rx Last Taken Unknown] atorvastatin 80 mg tablet 80 mg PO QHS CHOLESTEROL LOWERING #90 tabs 08/04/22 [Rx Last Taken Unknown] blood-glucose transmitter (Dexcom G6 Transmitter device) #1 ea 08/07/22 [Rx Last Taken Unknown] pregabalin 75 mg capsule 75 mg PO BID pain #60 caps 08/24/22 [Rx Last Taken Unknown] ursodiol 300 mg capsule 300 mg PO BID Check with primary doctor #180 caps 08/24/22 [Rx Last Taken Unknown] insulin lispro 200 unit/mL (3 mL) subcutaneous pen (Humalog KwikPen U-200 Insulin) 130 unit (0.65 mL) subcut .continuous #21 mL 08/28/22 [Rx Last Taken Unknown] Allergy/AdvReac Type Severity Reaction Status Date / Time ciprofloxacin Allergy Intermediate Swelling Verified 09/01/22 19:09 cinnamon [Cinnamon] Allergy Anaphylaxis Verified 09/01/22 19:09 Influenza Virus Vaccines Allergy Shortness Verified 09/01/22 19:09 of breath liraglutide [From Victoza] Allergy Anaphylaxis Verified 09/01/22 19:09 metformin [From Glucophage] Allergy NEEDS Verified 09/01/22 19:09 FOLLOW-UP metronidazole [From Flagyl] Allergy Hives Verified 09/01/22 19:09 Metronidazole HCl Allergy Hives Verified 09/01/22 19:09 [From Flagyl] Penicillins Allergy Hives Verified 09/01/22 19:09 Sulfa (Sulfonamide Allergy Hives Verified 09/01/22 19:09 Antibiotics) aripiprazole [From Abilify] AdvReac hallucinati Verified 09/01/22 19:09 ons codeine AdvReac Stops Verified 09/01/22 19:09 Ileostomy metformin HCl AdvReac Nausea Verified 09/01/22 19:09 [From Glucophage] ranolazine AdvReac Nausea/Vom/ Verified 09/01/22 19:09 Diarrhea Oifyrmi-TZY-BdL Reductase AdvReac Nausea/joints Verified 09/01/22 19:09 Inhibitor ache [Edzhrcl-Zky-Ovp Reductase Inhibitor] Family History Mother CVA (cerebral vascular accident) Diabetes Brother Heart disease of CAD at 65 Myocardial infarction Pancreatitis Father Cancer lymphomia Lymphoma Grandmother Myocardial infarction of [place] in her 70s Sister COPD (chronic obstructive pulmonary disease) Surgical History H/O colectomy H/O coronary artery bypass surgery (05/18/12) H/O sinus surgery H/O total hysterectomy history closed fissure History of History of cardiac catheterization History of cholecystectomy History of coronary artery stent placement (01/12/18) ileostomy Ileostomy status left thumb surgery Status post total hip replacement, left Social History household members: none Smoking Status: Former smoker quit date: 03/08/12 how long ago did patient quit smoking: quit in 2012; 0.5-1ppd x 30yrs alcohol intake: never substance use type: does not use diet: diabetic caffeine: No eating out: 1-3 times/week what type of physical activity do you participate in: none seatbelt use: always do you feel safe at home: Yes ROS ROS ED ROS Narrative A complete review of systems was performed and is negative except as documented in the history of present illness. Some specific details below. Constitutional: No recent fevers or chills. She does have malaise and generalized weakness. She feels a bit lightheaded getting up now. This is typical when she loses too much fluids. EYE: No visual complaints or pain. ENT: No difficulty swallowing. No swelling. No pain. She does feel that her mouth is very dry. CV: No chest pain or palpitations. Respiratory: No dyspnea. No hemoptysis. No difficulty taking breaths. GI: Please see history of present illness. : Patient is not having urine output today. Musculoskeletal: No recent trauma. No pains. Skin: No rash. Nondiaphoretic. Neuro: No weakness or numbness. Endocrine: No polyuria or polydipsia. EXAM Physical Exam Narrative Exam Narrative: CONSTITUTIONAL: Patient is nontoxic in appearance. But the patient looks very tired and worn out. HEENT: No notable trauma. Mucous membranes are quite dry. EYES: No conjunctival injection. CARDIOVASCULAR: Mildly tachycardic rate at about 110. Regular rhythm. No notable murmur. No JVD. On the monitor car operator, her heart rate varies between about 108 and 115 and does appear to be sinus tach. I do not see any ventricular ectopy. She does have a well-healed median sternotomy scar. RESPIRATORY: No respiratory distress. Breathing is unlabored. No wheezes. No rhonchi. No rales. No pain with a deep breath. GASTROINTESTINAL: Not distended. Bowel sounds are quiet. No focal tenderness. No guarding. No rebound. No palpable mass. No bruit. She does have ostomy in left lower quadrant with very liquid material in it. She also has a CGM and insulin pump on her abdomen. I see no rash on the abdomen. GENITOURINARY: No tenderness over the bladder. No CVA tenderness. MUSCULOSKELETAL: Atraumatic. No peripheral edema. NEUROLOGICAL: Patient is alert and appropriate. No focal deficit noted. She states she feels a little lightheaded and confused but she is actually quite good informant. SKIN: No noted rashes. No diaphoresis. PSYCHIATRIC: Patient is calm. Mood is appropriate. Const Vital Signs: 09/01/22 19:09 09/01/22 22:08 Temperature 97.3 F L Temperature Source Temporal Pulse Rate 122 H 110 H Respiratory Rate 19 H 20 H Blood Pressure 131/83 H 137/67 H Blood Pressure Mean 99 90 Pulse Ox 94 95 Oxygen Delivery Method Room Air Room Air MDM MDM MDM Narrative Medical decision making narrative: Patient CBC shows elevated white count slightly which is nonspecific. Her hemoglobin is high at 15.4 which I suspect is due to hemoconcentration from her dehydration. Electrolytes showed elevated creatinine at 2.11. This is higher than her last level at 1.6 showing some degree of an acute kidney injury. Glucose was mildly elevated at 175. Her lactic acid was a bit high at 2.8. She is given some IV fluids and this will be rechecked. Liver function test showed minimal elevations of total bilirubin and alkaline phosphatase. But there is no right upper quadrant tenderness. Urinalysis showed mildly elevated specific gravity but no sign of acute infection. I called the hospitalist for admission. My concern is that this patient does have some degree of acute kidney injury. Despite trying to take Zofran at home she could not control the vomiting. She has a history of getting significant acute kidney injuries with episodes like this. She states that this nausea vomiting and high output ostomy is typical when her gastroparesis acts up. Her exam is overall showing no marked tenderness. I do not think we need CT of the abdomen acutely. She is feeling a little bit better with some IV fluids and meds. The patient did develop then a little bit of discomfort in the chest. She pointed to an area right of the sternum in the lower chest. She states it just ached. She did not have a change in nausea vomiting or did she develop shortness of breath or diaphoresis. Is not tender. When I went to see her it was getting much better and almost gone. In the meantime I did repeat an EKG. This showed no notable interval change from the first 1. It does show some repolarization abnormalities. I have also added a troponin but this is pending at this time. Lab Data Attestation: I reviewed the patient's lab results. Labs: Laboratory Results - last 24 hr 09/01/22 09/01/22 09/01/22 19:40 19:40 19:40 WBC 11.6 H RBC 5.55 H Hgb 15.4 H Hct 49.1 H MCV 88.5 MCH 27.7 MCHC 31.4 L RDW Std Deviation 52.3 H RDW Coeff of Jan 16.6 H Plt Count 184 MPV 12.7 H Immature Gran % (Auto) 0.500 Neut % (Auto) 71.7 H Lymph % (Auto) 19.2 Henderson % (Auto) 5.8 Eos % (Auto) 2.1 Baso % (Auto) 0.7 Absolute Neuts (auto) 8.3 H Absolute Lymphs (auto) 2.24 Nucleated RBC % 0.3 Sodium 136 Potassium 4.0 Chloride 106 Carbon Dioxide 22.0 Anion Gap 8 BUN 29 H Creatinine 2.11 H Estim Creat Clear Calc 26.19 Est GFR (MDRD) Af Amer 30 L Est GFR (MDRD) Non-Af 25 L BUN/Creatinine Ratio 13.7 Glucose 175 H Lactic Acid 2.8 H* Calcium 9.9 Total Bilirubin 1.10 H AST 13 L ALT 19 Alkaline Phosphatase 141 H Total Protein 8.0 Albumin 3.4 Globulin 4.6 H Albumin/Globulin Ratio 0.7 L Lipase 26 Urine Color Urine Clarity Urine pH Ur Specific [place] Urine Protein Urine Glucose (UA) Urine Ketones Urine Occult Blood Urine Nitrite Urine Bilirubin Urine Urobilinogen Ur Leukocyte Esterase Urine RBC Urine WBC Ur Squamous Epith Cells Amorphous Sediment Urine Bacteria Urine Mucus 09/01/22 20:47 WBC RBC Hgb Hct MCV MCH MCHC RDW Std Deviation RDW Coeff of Jan Plt Count MPV Immature Gran % (Auto) Neut % (Auto) Lymph % (Auto) Henderson % (Auto) Eos % (Auto) Baso % (Auto) Absolute Neuts (auto) Absolute Lymphs (auto) Nucleated RBC % Sodium Potassium Chloride Carbon Dioxide Anion Gap BUN Creatinine Estim Creat Clear Calc Est GFR (MDRD) Af Amer Est GFR (MDRD) Non-Af BUN/Creatinine Ratio Glucose Lactic Acid Calcium Total Bilirubin AST ALT Alkaline Phosphatase Total Protein Albumin Globulin Albumin/Globulin Ratio Lipase Urine Color Yellow Urine Clarity Sl. Cloudy Urine pH 5.0 Ur Specific [place] 1.020 Urine Protein 100 H Urine Glucose (UA) Normal Urine Ketones 5 H Urine Occult Blood 25 H Urine Nitrite Negative Urine Bilirubin 1 H Urine Urobilinogen 1 H Ur Leukocyte Esterase 25 H Urine RBC 0-5 SEEN Urine WBC 0-5 SEEN Ur Squamous Epith Cells 0-5 SEEN Amorphous Sediment 1+ URATE Urine Bacteria 1+ Urine Mucus 0 SEEN EKG Initial EKG: Comments: My independent interpretation the patient's EKG done for tachycardia shows sinus rhythm with tachycardic rate at 111. No ectopy is noted. She does have signs of LVH with diffuse repolarization abnormalities. These are similar in pattern to 15 November 2021. Her FL interval QRS duration and QTc are normal. Management Discussion w/another healthcare provider: Hospitalist Discharge Plan Triage Chief Complaint: Abd Pain ED Provider: Martin Chirinos Dx/Rx/DC Orders Clinical Impression: Nausea & vomiting, High output ileostomy, Dehydration, Elevated serum creatinine, Chest pain, History of CAD (coronary artery disease) Prescriptions: No Action duloxetine 30 mg capsule,delayed release(DR/EC) 90 mg PO DAILY nitroglycerin 0.4 mg tablet, sublingual 0.4 mg sublingual Q5-15M PRN (Reason: chest pain) Qty: 25 6RF Rx Instructions: do not exceed 3 doses per episode melatonin 3 mg tablet 5 mg PO QHS PRN PRN (Reason: Insomnia) lamotrigine 100 mg tablet 100 mg PO DAILY aspirin 81 mg Tablet,Delayed Release (Dr/Ec) 81 mg PO DAILY Hold Instructions: Resume on 06/10/22. metoclopramide HCl [Reglan] 5 mg tablet 5 mg PO BID (DME) True Metrix Glucose Test Strip Strip See Rx Instructions .Route Rx Instructions: 3 times per day No longer (DME) Dexcom G6 Director Of Retail Marketing Misc See Rx Instructions .ROUTE .MEDSUPPLY Rx Instructions: As directed (DME) pen needle, diabetic [BD Ultra-Fine Key Pen Needle] 32 gauge x 5/32 needle See Rx Instructions .ROUTE .MEDSUPPLY Rx Instructions: takes 5 injection/day (DME) Wheel Chair See Rx Instructions Rx Instructions: As directed buprenorphine 10 mcg/hour Patch Weekly 1 patch TRANSDERMAL Q7D Rx Instructions: changes on Saturdays loperamide [Imodium A-D] 2 mg capsule 2 mg PO Q6H PRN (Reason: loose stool) Qty: 20 0RF trazodone 50 mg Tablet 50 mg PO QHS dicyclomine 10 mg capsule 20 mg PO BREAKFAST insulin lispro [Humalog KwikPen Insulin] 100 unit/mL Insulin Pen See Protocol subcut ACHS Qty: 0 0RF Protocol: 4. Sliding Scale Insulin High-Med Dosing Condition: 150-199 mg/dl = 2 units Condition: 200-259 mg/dl = 4 units Condition: 260-324 mg/dl = 6 units Condition: 325-374 mg/dl = 8 units Condition: 375-409 mg/dl = 10 units Condition: 410-449 mg/dl = 11 units Condition: Greater than 449 call physician Protocol Text: - Use for Total Daily Dose of Insulin 56-80 units - Patient who are insulin resistant or septic HIGH MEDIUM DOSING ALGORITHM diphenoxylate-atropine [Lomotil] 2.5-0.025 mg tablet 1 tab PO TID PRN (Reason: diarrhea) Qty: 90 0RF ondansetron 4 mg tablet,disintegrating 4 mg PO Q6H PRN (Reason: nausea and vomiting) Qty: 90 0RF hyoscyamine sulfate 0.125 mg tablet 0.125 mg PO Q6H PRN (Reason: dyspepsia) Qty: 60 2RF isosorbide dinitrate 30 mg tablet 30 mg PO BID Qty: 60 11RF (DME) ostomy supplies See Rx Instructions .Route .MEDSUPPLY Qty: 1 0RF Rx Instructions: Pouches Barrier rings Adhesive remover Skin Prep Barrier powder clopidogrel 75 mg tablet 75 mg PO DAILY Qty: 90 3RF Hold Instructions: Resume on 06/10/22. Rx Instructions: TAKE 1 TABLET BY MOUTH EVERY DAY Farxiga 10 mg tablet 10 mg PO DAILY Qty: 90 1RF pantoprazole 40 mg tablet,delayed release (DR/EC) See Rx Instructions .ROUTE .COMPLEX Qty: 28 11RF Dose Instruction: TAKE 1 TABLET BY MOUTH DAILY FOR GERD Rx Instructions: TAKE 1 TABLET BY MOUTH DAILY FOR GERD (DME) Dexcom G6 Sensor Device See Rx Instructions .ROUTE .MEDSUPPLY Qty: 9 1RF Rx Instructions: 1 sensor every 10 days metoprolol tartrate 50 mg tablet 50 mg PO .COMPLEX Qty: 180 3RF Rx Instructions: 50 mg orally twice a day with a 25 mg tablet twice a day to = 75 mg twice a day; metoprolol tartrate 25 mg tablet 25 mg PO .COMPLEX Qty: 180 3RF Rx Instructions: 25 mg orally take with a 50 mg tablet twice a day to = 75 mg twice a day; (DME) Omnipod 5 G6 Pods (Gen 5) Cartridge See Rx Instructions .Route Qty: 45 1RF Rx Instructions: 1 pod q 48 hours atorvastatin 80 mg tablet 80 mg PO QHS Qty: 90 3RF Label Comments: cholesterol (DME) Dexcom G6 Transmitter Device See Rx Instructions .ROUTE .MEDSUPPLY Qty: 1 3RF Rx Instructions: 1 transmitter every 90 days ursodiol 300 mg capsule 300 mg PO BID Qty: 180 1RF pregabalin 75 mg capsule 75 mg PO BID Qty: 60 1RF Humalog KwikPen Insulin 200 unit/mL (3 mL) insulin pen 130 unit subcut .continuous Qty: 21 6RF Primary Care Provider: Mala Mcgrath Referrals: Mala Mcgrath MD [Primary Care Provider] - Disposition Disposition: Acute Care Hospital [facility]
[2022-09-01] MEDS: 0.9% Normal Saline 1,000 ML 1000 ML IV (19:41)
[2022-09-01] MEDS: Morphine 4 MG/ML Syringe IV (19:42)
[2022-09-01] MEDS: Ondansetron 4 MG/2 ML Vial IV (19:42)
[2022-09-01 19:55] LABS: Absolute Lymphocyte Count 2.24 X10^3/uL (0.83-4.51); Absolute Neutrophil Count 8.3 X10^3/uL (2.0-7.7); Basophil# 0.08 X10^3/uL; Basophil% 0.7 % (0-1); Eosinophil# 0.25 X10^3/uL; Eosinophils% 2.1 % (0-5); Hematocrit 49.1 % (37-47); Hemoglobin 15.4 g/dL (12.0-15.0); Lymphocyte # 2.24 X10^3/ul (0.83-4.51); Lymphocyte % 19.2 % (19-41); Mean Corp Hgb Conc 31.4 g/dL (32-36); Mean Corpuscular Hgb 27.7 pg (27.0-32.0); Mean Corpuscular Volume 88.5 fL (81-99); Mean Platelet Vol. 12.7 fl (6.2-12.0); Monocyte# 0.68 X10^3/uL; Monocyte% 5.8 % (0-10); NRBC Flagged by Analyzer 0.3 % (0-5); Neutrophil # 8.33 X10^3/uL (2.7-7.7); Neutrophil % 71.7 % (47-70); Platelet Count 184 K/mm3 (150-450); RBC Distribution Width CV 16.6 % (11.6-14.6); RBC Distribution Width SD 52.3 fl (35.1-43.9); Red Blood Count 5.55 M/mm3 (4.2-5.4); White Blood Count 11.6 K/mm3 (4.4-11.0)
--- NOTE | 2022-09-01 20:12 | ED.RN ---
Empty ostomy bag, 150 cc green/blue colored output. Pt states she is changing bag q 15 min since sx started. Usually emptying 2x day.
[2022-09-01 20:33] LABS: ALB/GLOB Ratio 0.7 RATIO (0.9-2.4); AST(SGOT) 13 U/L (15-37); Alanine Aminotransfer ALT/SGPT 19 U/L (13-56); Albumin, Serum 3.4 g/dL (3.2-5.0); Alkaline Phosphatase 141 U/L (45-117); Anion Gap 8 (5-15); BUN 29 mg/dL (7-18); BUN/Creat Ratio 13.7 RATIO (10-20); Calcium,Total 9.9 mg/dL (8.5-10.1); Chloride 106 mmol/L (98-107); Creatinine, Serum 2.11 mg/dL (0.55-1.02); EST Glomerular Filtration Rate 25 mL/min (>60); Est Glom Filt Rate - Afr Amer 30 mL/min (>60); Estimated Creatinine Clearance 26.19 ml/min; Globulin 4.6 g/dL (2.2-4.2); Glucose 175 mg/dL (74-106); Lipase 26 U/L (13-75); Sodium Level 136 mmol/L (136-145)
[2022-09-01 20:34] LABS: Lactic Acid 2.8 mmol/L (0.4-1.9)
[2022-09-01 20:50] LABS: Mucous, Urine 0 SEEN /hpf (<or=2+)
[2022-09-01 20:52] LABS: Color, Urine Yellow (Yellow); Glucose, Dipstick Normal (Normal); Ketone-Dipstick 5 mg/dl (Negative); Leukocyte Esterase-Dipstick 25 /ul (Negative); Nitrite-Dipstick Negative (Negative); Occult Blood-Urine 25 /ul (Negative); Protein-Dipstick 100 mg/dl (Negative); Urine Clarity Sl. Cloudy (Clear); Urine Urobilinogen 1 mg/dl (Normal)
[2022-09-01 21:00] LABS: Urine Bilirubin Dipstick 1 mg/dL (Negative)
[2022-09-01 21:01] LABS: Amorphous Sediment 1+ URATE; Bacteria 1+ /hpf (None Seen); Red Blood Cells-Urine 0-5 SEEN /hpf (0-5); Squamous Epithelial Cells - UA 0-5 SEEN /hpf (5-10); White Blood Cells 0-5 SEEN /hpf (0-5)
--- NOTE | 2022-09-01 22:05 | EKG12_ITS ---
Test Reason : DYSRHYTHMIA Blood Pressure : / mmHG Vent. Rate : 111 BPM Atrial Rate : 111 BPM P-R Int : 162 ms QRS Dur : 092 ms QT Int : 330 ms P-R-T Axes : 043 -46 134 degrees QTc Int : 448 ms Sinus tachycardia Left anterior fascicular block Left ventricular hypertrophy with repolarization abnormality Abnormal ECG Confirmed by CHLOÉ DOMINGUEZ, AL ([id number]), editorial writer ISABELLA BUTLER ([id number]) on 09/02/2022 10:05:38 AM Referred By: LUCINDA Confirmed By:AL LUEVANO MD
[2022-09-01 22:08] VITALS: BP 137/67; PULSE 110; RESP 20; O2SAT 95
--- NOTE | 2022-09-01 22:09 | ED.RN ---
Pt notified RN of developing CP on R side. Pt placed on court monitor. Notified Dr. Chirinos, obtained second EKG.
[2022-09-01 22:34] LABS: Troponin-I HS 12 pg/mL (3.0-54.0)
[2022-09-01 23:00] VITALS: BP 138/68; PULSE 106; RESP 17; TEMP 36.9; O2SAT 94
--- NOTE | 2022-09-01 23:04 | RAD_ITS ---
EXAM: XR CHEST, 1 VIEW CLINICAL INDICATION: chest pain TECHNIQUE: Frontal view of the chest. COMPARISON: Portable chest 10/15/2021 FINDINGS: LUNGS AND PLEURAL SPACES: Unremarkable. No consolidation or edema. No pneumothorax. No effusion. HEART: Unremarkable. Cardiac silhouette not enlarged. MEDIASTINUM: Surgical changes of the mediastinum. BONES/JOINTS: Unremarkable. SOFT TISSUES: Unremarkable. RAD/Chest 1 View (Portable) IMPRESSION: No acute findings in the chest. Electronically Signed: Cesar Rivera MD at 23:55 EDT ,
--- NOTE | 2022-09-01 23:11 | EKG12_ITS ---
Test Reason : CP ADMISSION Blood Pressure : / mmHG Vent. Rate : 105 BPM Atrial Rate : 105 BPM P-R Int : 162 ms QRS Dur : 088 ms QT Int : 350 ms P-R-T Axes : 032 -42 144 degrees QTc Int : 462 ms Sinus tachycardia Left axis deviation Left ventricular hypertrophy with repolarization abnormality ( R in aVL , Parminder product ) Abnormal ECG Confirmed by CHLOÉ DOMINGUEZ, AL ([id number]), commercial production editor ISABELLA BUTLER ([id number]) on 09/03/2022 10:17:38 AM Referred By: BASSEM Confirmed By:AL LUEVANO MD
--- NOTE | 2022-09-01 23:21 | HP.PCM.HOS_ITS ---
HPI - General General Date of Admission: 09/01/22 Date of Service: 09/01/22 Chief Complaint: Intractable N/V/high ostomy output. HPI Narrative The patient is a 62 y/o F w/ PMHx: MGUS, CAD s/p PCI x 9 secondary to failed CABG x 4 (recent negative stress testing 07/2017), Hypertension, Hyperlipidemia, Depression and Anxiety, Ulcerative Colitis s/p coloproctectomy w/ ostomy complicated by frequent high output w/ recent admission 03/14/22-03/16/22 secondary to associated RALPH on CKD stage IV, Diabetes mellitus type II with chronic neuropathy and associated gastroparesis, Obesity, CKD stage IV, COPD w/ chronic respiratory failure previously using nightly nasal cannula supplementation 2 L now transition to room air, Former tobacco use, ANIKTA on BIPAP q HS who presents to the [facility] ED on 09/01/22 with history of ongoing abdominal discomfort, nausea, emesis and high output from her ostomy normally changing her bag twice a day with IV fluid administration every 2 weeks routinely and unfortunately the last 24 hours had onset of nausea, emesis, abdominal cramping with watery output from her ostomy changing the bag as frequently as every 15 minutes with increased weakness, fatigue and malaise prompting eventual ED evaluation. Following questions and eval patient in the ED she did note unfortunately that she may have accidentally forgotten to replace her buprenorphine patch which had been due on Wednesday. Discussed that this likely is contributing to her current acute presentation symptoms as well. In the ED patient noted chest pain onset but this is since alleviated during hospitalist evaluation, aching, 1-2 out of 10 at onset, now resolved, noted to be midsternal, mildly reproducible. Work-up in the ED included T97.3, heart rate 122, BP 131/83, respiratory rate 19, 94% on room air, CBC with WBC 11.6, hemoglobin 15.4, platelet 194 with left shift, CMP with BUN/creatinine 29/2.11, glucose 175, lactic acid 2.8, T. bili 1.10, AST/ALT 13/19, alk phos 141, lipase 26, troponin 12, EKG with ST with no acute evidence of ischemia with diffuse ST changes consistent with prior x 2., urinalysis with specific gravity 1.020, urine protein 100, normal glucose, ketone 5, occult blood 25, negative nitrite, urine bilirubin 1, urine urobilinogen 1, leukocyte Estrace 25, no marked urine RBC or WBCs with 1+ bacteria noted. In the ED patient ministered 1 L normal saline, morphine 4 mg IV x1, Zofran 4 mg IV x1. PFSH Medical History Acute kidney injury Anxiety Anxiety and depression Arthritis Avascular necrosis of bone of left hip BiPAP (biphasic positive airway pressure) dependence BMI 31.0-31.9,adult CAD (coronary artery disease) Cardiology follow-up encounter Cellulitis, abdominal wall Chronic back pain Chronic diastolic (congestive) heart failure Chronic narcotic use Chronic respiratory failure Chronic respiratory failure with hypoxia, on home O2 therapy CKD (chronic kidney disease), stage IV COPD (chronic obstructive pulmonary disease) Depression with anxiety Diabetic gastroparesis DM2 (diabetes mellitus, type 2) Elevated anti-tissue transglutaminase (tTG) IgA level Fatty liver FCHL (familial combined hyperlipidemia) Former smoker Gastric reflux Gastroparesis High output ileostomy History of COVID-19 Hx of diabetic gastroparesis Hyperlipidemia Hypertension Ileostomy present Insulin dependent diabetes mellitus Left shoulder pain Liver mass Loss of hearing Menieres disease MGUS (monoclonal gammopathy of unknown significance) Migraine headache Myoclonic jerking Non-alcoholic fatty liver disease Nonalcoholic steatohepatitis Obesity Obstructive sleep apnea Psoriasis Secondary pulmonary arterial hypertension Short bowel syndrome Smoking greater than 20 pack years Type 2 diabetes mellitus with diabetic polyneuropathy Ulcerative colitis Vitamin D deficiency Walker as ambulation aid Wears glasses Home Medications aspirin 81 mg tablet,delayed release 81 mg PO DAILY Check with primary doctor 04/08/21 [History Last Taken 05/27/22] diphenoxylate-atropine 2.5 mg-0.025 mg tablet (Lomotil) 1 tab PO TID PRN diarrhea #90 tabs 05/19/21 [Rx Last Taken 05/17/22] duloxetine 30 mg capsule,delayed release 90 mg PO DAILY Check with primary doctor 10/06/21 [History Last Taken 05/27/22] hyoscyamine sulfate 0.125 mg tablet 0.125 mg PO Q6H PRN dyspepsia #60 tabs [Rx Last Taken 05/25/22] ondansetron 4 mg disintegrating tablet 4 mg PO Q6H PRN nausea and vomiting #90 tabs 11/04/21 [Rx Last Taken 05/26/22] Wheel Chair 11/15/21 [History Last Taken Unknown] blood sugar diagnostic (True Metrix Glucose Test Strip) 11/15/21 [History Last Taken Unknown] blood-glucose meter,continuous (Dexcom G6 Plan Nurse) 11/15/21 [History Last Taken Unknown] pen needle, diabetic 32 gauge x 5/32 (BD Ultra-Fine Key Pen Needle) 11/15/21 [History Last Taken Unknown] buprenorphine 10 mcg/hour weekly transdermal patch 1 patch transdermal Q7D pain 11/18/21 [History Last Taken 05/23/22] loperamide 2 mg capsule (Imodium A-D) 2 mg PO Q6H PRN loose stool #20 caps 11/18/21 [Rx Last Taken 05/14/22] nitroglycerin 0.4 mg sublingual tablet 0.4 mg sublingual Q5-15M PRN chest pain #25 tabs 11/20/21 [Rx Last Taken Unknown] isosorbide dinitrate 30 mg tablet 30 mg PO BID heart #60 tabs 01/16/22 [Rx Last Taken 05/27/22] ostomy supplies #1 ea 02/13/22 [Rx Last Taken Unknown] dicyclomine 10 mg capsule 20 mg PO DAILY Check with primary doctor 03/14/22 [History Last Taken 05/27/22] trazodone 50 mg tablet 50 mg PO QHS sleep 03/14/22 [History Last Taken 05/26/22] clopidogrel 75 mg tablet 75 mg PO DAILY Check with primary doctor #90 tabs 03/16/22 [Rx Last Taken 05/27/22] dapagliflozin propanediol 10 mg tablet (Farxiga) 10 mg PO DAILY #90 tabs 03/19/22 [Rx Last Taken 05/27/22] metoclopramide HCl 5 mg tablet (Reglan) 5 mg PO BID reflux 04/03/22 [History Last Taken 05/25/22] pantoprazole 40 mg tablet,delayed release See Rx Instructions .Route .COMPLEX #28 tabs 04/07/22 [Rx Last Taken 05/27/22] insulin lispro 100 unit/mL subcutaneous pen (Humalog KwikPen (U-100) Insulin) See Protocol subcut ACHS #0 mL 06/02/22 [Rx Last Taken Unknown] blood-glucose sensor (Dexcom G6 Sensor device) #9 ea 06/11/22 [Rx Last Taken Unknown] melatonin 3 mg tablet 5 mg PO QHS PRN PRN Insomnia 07/06/22 [History Last Taken Unknown] lamotrigine 100 mg tablet 100 mg PO DAILY 07/20/22 [History Last Taken Unknown] metoprolol tartrate 25 mg tablet 25 mg PO .COMPLEX bp #180 tabs 07/28/22 [Rx Last Taken Unknown] metoprolol tartrate 50 mg tablet 50 mg PO .COMPLEX #180 tabs 07/28/22 [Rx Last Taken Unknown] insulin pump cart,automated,BT (Omnipod 5 G6 Pods (Gen 5) subcutaneous cartridge) #45 ea 07/31/22 [Rx Last Taken Unknown] atorvastatin 80 mg tablet 80 mg PO QHS CHOLESTEROL LOWERING #90 tabs 08/04/22 [Rx Last Taken Unknown] blood-glucose transmitter (Dexcom G6 Transmitter device) #1 ea 08/07/22 [Rx Last Taken Unknown] pregabalin 75 mg capsule 75 mg PO BID pain #60 caps 08/24/22 [Rx Last Taken Unknown] ursodiol 300 mg capsule 300 mg PO BID Check with primary doctor #180 caps 08/24/22 [Rx Last Taken Unknown] insulin lispro 200 unit/mL (3 mL) subcutaneous pen (Humalog KwikPen U-200 Insulin) 130 unit (0.65 mL) subcut .continuous #21 mL 08/28/22 [Rx Last Taken Unknown] dicyclomine 10 mg capsule 10 mg PO QHS 09/01/22 [History Last Taken Unknown] hydrochlorothiazide 25 mg tablet 25 mg PO DAILY 09/01/22 [History Last Taken Unknown] oxycodone 5 mg capsule 5 mg PO PRN PRN Pain 09/01/22 [History Last Taken Unknown] prednisone 20 mg tablet 20 mg PO BID 09/01/22 [History Last Taken Unknown] Allergy/AdvReac Type Severity Reaction Status Date / Time ciprofloxacin Allergy Intermediate Swelling Verified 09/01/22 19:09 cinnamon [Cinnamon] Allergy Anaphylaxis Verified 09/01/22 19:09 Influenza Virus Vaccines Allergy Shortness Verified 09/01/22 19:09 of breath liraglutide [From Victoza] Allergy Anaphylaxis Verified 09/01/22 19:09 metformin [From Glucophage] Allergy NEEDS Verified 09/01/22 19:09 FOLLOW-UP metronidazole [From Flagyl] Allergy Hives Verified 09/01/22 19:09 Metronidazole HCl Allergy Hives Verified 09/01/22 19:09 [From Flagyl] Penicillins Allergy Hives Verified 09/01/22 19:09 Sulfa (Sulfonamide Allergy Hives Verified 09/01/22 19:09 Antibiotics) aripiprazole [From Abilify] AdvReac hallucinati Verified 09/01/22 19:09 ons codeine AdvReac Stops Verified 09/01/22 19:09 Ileostomy metformin HCl AdvReac Nausea Verified 09/01/22 19:09 [From Glucophage] ranolazine AdvReac Nausea/Vom/ Verified 09/01/22 19:09 Diarrhea Srxkucl-BIH-YfA Reductase AdvReac Nausea/joints Verified 09/01/22 19:09 Inhibitor ache [Tlpqpej-Ypi-Onq Reductase Inhibitor] Family History Mother CVA (cerebral vascular accident) Diabetes Brother Heart disease of CAD at 65 Myocardial infarction Pancreatitis Father Cancer lymphomia Lymphoma Grandmother Myocardial infarction of NE in her 70s Sister COPD (chronic obstructive pulmonary disease) Surgical History H/O colectomy H/O coronary artery bypass surgery (05/18/12) H/O sinus surgery H/O total hysterectomy history closed fissure History of History of cardiac catheterization History of cholecystectomy History of coronary artery stent placement (01/12/18) ileostomy Ileostomy status left thumb surgery Status post total hip replacement, left Social History household members: none Smoking Status: Former smoker quit date: 03/08/12 how long ago did patient quit smoking: quit in 2012; 0.5-1ppd x 30yrs alcohol intake: never substance use type: does not use diet: diabetic caffeine: No eating out: 1-3 times/week what type of physical activity do you participate in: none seatbelt use: always do you feel safe at home: Yes ROS ROS Narrative Admission Review of Systems: CONSTITUTIONAL: No weight loss, fever, chills, + weakness or fatigue. HEENT: Eyes: No visual loss, blurred vision, double vision or yellow sclerae. Ears, Nose, Throat: No hearing loss, sneezing, congestion, runny nose or sore throat. SKIN: No rash or itching, lesions, wounds. CARDIOVASCULAR: + Chest pain. No palpitations, edema, orthopnea, syncopal events. RESPIRATORY: + Chronic exertional dyspnea, chronic cough without marked sputum production. No marked wheezing, hemoptysis. GASTROINTESTINAL: + anorexia, nausea, vomiting, high ostomy watery diarrhea output, abdominal pain, No melena, BRBPR. GENITOURINARY: No dysuria, frequency, urgency or retention. NEUROLOGICAL: No headache, dizziness, syncope, paralysis, ataxia, numbness or tingling in the extremities, focal weakness, change in bowel or bladder control, seizure. MUSCULOSKELETAL: + muscle, back pain, joint pain or stiffness. HEMATOLOGIC: + anemia, bleeding or bruising. LYMPHATICS: No enlarged nodes. No history of splenectomy. PSYCHIATRIC: + history of depression or anxiety. ENDOCRINOLOGIC: No reports of sweating, cold or heat intolerance. No polyuria or polydipsia. ALLERGIES: + history of hives, rhinitis, anaphylaxis. Vital Signs Vital Signs Vital Signs: 09/01/22 19:09 09/01/22 22:08 Temperature 97.3 F L Temperature Source Temporal Pulse Rate 122 H 110 H Respiratory Rate 19 H 20 H Blood Pressure 131/83 H 137/67 H Blood Pressure Mean 99 90 Pulse Ox 94 95 Oxygen Delivery Method Room Air Room Air Weight Weight: 201 lb 8 oz Body Mass Index (BMI) 31.5 Physical Exam Narrative Physical Examination: General: Awake, alert, oriented x 3 and cooperative, seated upright in the ED bed, fatigued and ill appearing. Skin: Normal color, normal turgor, no icterus, no cyanosis. HEENT: AT/NC, EOMI, PERRLA, dry MM, no carotid bruits or JVD noted. Lungs: Diminished, greater bases, appropriate effort, no rales, wheezing or rhonchi. Heart: Mildly tachycardic with regular rhythm; no gallop, rub audible. Abdomen: Soft, obese, mild generalized discomfort with palpation with no rebound or guarding, no marked distention, hyperactive BS, no HSM, LLQ osteomy in place. Extremities: No cyanosis, no clubbing, no marked peripheral edema. Neurological: Patient awake, alert, oriented as noted, cognitive function intact; pupils equally reactive to light and accommodation, cranial nerves II-X II grossly normal, moving all 4 extremities, strength accordingly moderately globally decreased. Psychiatric: Affect appears fatigued, no acute evidence of depressive or anxiety feelings but does have underlying history. Results Lab / Micro Data Result Diagrams: 09/01/22 19:40 09/01/22 19:40 Labs: Laboratory Results - last 24 hr 09/01/22 19:40: WBC 11.6 H, RBC 5.55 H, Hgb 15.4 H, Hct 49.1 H, MCV 88.5, MCH 2 7.7, MCHC 31.4 L, RDW Std Deviation 52.3 H, RDW Coeff of Jan 16.6 H, Plt Count 184, MPV 12.7 H, Immature Gran % (Auto) 0.500, Neut % (Auto) 71.7 H, Lymph % (Auto) 19.2, [place] % (Auto) 5.8, Eos % (Auto) 2.1, Baso % (Auto) 0.7, Absolute Neuts (auto) 8.3 H, Absolute Lymphs (auto) 2.24, Nucleated RBC % 0.3 09/01/22 19:40: Sodium 136, Potassium 4.0, Chloride 106, Carbon Dioxide 22.0, Anion Gap 8, BUN 29 H, Creatinine 2.11 H, Estim Creat Clear Calc 26.19, Est GFR (MDRD) Af Amer 30 L, Est GFR (MDRD) Non-Af 25 L, BUN/Creatinine Ratio 13.7, Glucose 175 H, Calcium 9.9, Total Bilirubin 1.10 H, AST 13 L, ALT 19, Alkaline Phosphatase 141 H, Total Protein 8.0, Albumin 3.4, Globulin 4.6 H, Albumin/Globulin Ratio 0.7 L, Lipase 26 09/01/22 19:40: Lactic Acid 2.8 H* 09/01/22 20:47: Urine Color Yellow, Urine Clarity Sl. Cloudy, Urine pH 5.0, Ur Specific [place] 1.020, Urine Protein 100 H, Urine Glucose (UA) Normal, Urine Ketones 5 H, Urine Occult Blood 25 H, Urine Nitrite Negative, Urine Bilirubin 1 H, Urine Urobilinogen 1 H, Ur Leukocyte Esterase 25 H, Urine RBC 0-5 SEEN, Urine WBC 0-5 SEEN, Ur Squamous Epith Cells 0-5 SEEN, Amorphous Sediment 1+ URATE, Urine Bacteria 1+, Urine Mucus 0 SEEN Assessment & Plan Assessment/Plan (1) Nausea & vomiting: PLAN: Plan The patient is a 62 y/o F w/ PMHx: MGUS, CAD s/p PCI x 9 secondary to failed CABG x 4 (recent negative stress testing 07/2017), Hypertension, Hyperlipidemia, Depression and Anxiety, Ulcerative Colitis s/p coloproctectomy w/ ostomy complicated by frequent high output w/ recent admission 03/14/22-03/16/22 secondary to associated RALPH on CKD stage IV, Diabetes mellitus type II with chronic neuropathy and associated gastroparesis, Obesity, CKD stage IV, COPD w/ chronic respiratory failure, Former tobacco use, ANKITA on BIPAP q HS who presents to the [facility] ED on 09/01/22 with history of ongoing abdominal discomfort, nausea, emesis and high output from her ostomy normally changing her bag twice a day with IV fluid administration every 2 weeks routinely and unfortunately the last 24 hours had onset of nausea, emesis, abdominal cramping with watery output from her ostomy changing the bag as frequently as every 15 minutes with increased weakness, fatigue and malaise prompting eventual ED evaluation. #1. Intractable nausea, emesis, abdominal cramping with increased Ostomy outpatient secondary to Possible Acute Gastroenteritis complicated by notable Gastroparesis and short-gut with associated lactic acidosis: Will admit to PCU, will continue aggressive hydration, will obtain c diff, stool cx to be cautious with repeat AM CBC. Will not start antibiotics at this time given unclear source pending stool studies as may be viral gastroenteritis or per patient specific report associated with her gastroparesis, will place on scheduled IV reglan, will have PRN antiemetics but if notably intractable would consider haldol IV, PRN pain regimen while continuing her chronic regimen given chronic pain syndrome, will per prior admission GI recommendations in setting of high ostomy output also continue cholestyramine and Metamucil regimen, if C. difficile and stool enteric pathogen unremarkable will continue aggressive loperamide regimen, monitor output. Procalcitonin requested, trend LA with ongoing aggressive hydration. We will immediately change patient's buprenorphine patch as this certainly could be contributing. Patient follows closely with Dr. Andino and has appointment 09/02/2022 thus will request his involvement. #2. Chest Pain, suspect musculoskeletal especially given intractable recent nausea and emesis: EKG with ST with no acute evidence of ischemia with diffuse ST changes consistent with prior x 2, initial trop 12, CXR requested. Will place on a monitored bed to assure no acute myocardial infarction with serial cardiac enzymes and EKGs. Mag pending. Given acute presentation #1, onset of pain only while in the ED will continue to monitor, certainly could be musculoskeletal related given recent aggressive emesis bouts. ASA, NG, morphine. #3. Ulcerative colitis status post colon proctectomy with ostomy: Patient with significant history is chronically with high put output, prior similar admissions, GI involved prior, will continue cholestyramine and Metamucil regimen, monitor output. #4. Diabetes mellitus type II with insulin pump with associated gastroparesis and chronic neuropathy: Patient with chronic insulin pump in place, following closely with endocrinology with last visit noted 07/29/2022, will continue insulin pump per home regimen with Accu-Cheks with insulin sliding scale per her home insulin pump only, maintain on ADA diet and encourage continued lifestyle and diet changes, continue as needed Reglan regimen. Most recent hemoglobin A1c noted 07/28/2022 7.2% mildly increased from 04/30/2022 6.8%. Continue patient pregabalin regimen. #5. MGUS: Patient with persistently low IgA lambda monoclonal gammopathy with no evidence to suggest endorgan damage from multiple myeloma with evidence of slowly progressive chronic renal disease otherwise has other disease explanation per most recent note by oncology, skeletal survey 01/2022 with no punched-out lesions with continued routine follow-up and planned repeat skeletal survey 01/2023. #6. Chronic Kidney Disease Stage IV: Admission BUN/Cr 29/2.11, baseline renal function primarily 1.6-2.0, mildly increased, repeat BMP in AM. #7. CAD: s/p PCI x 9 secondary to failed CABG x 4, will continue home asa, Plavix, metoprolol, statin therapy. #8. Hypertension: Continue home regimen including metoprolol and isosorbide with as needed hydralazine. #9. Hyperlipidemia: Continue home statin regimen. #10. Chronic COPD, prior history of chronic hypoxic respiratory failure on 2 L supplementation, now transition to room air: We will temporarily hold home inhalers in the interim transition to ATC budesonide therapy, PRN albuterol, HOB , IS parameters. #11. Depression/Anxiety: Continue home duloxetine regimen. #12. Chronic pain syndrome: Maintain on chronic pregabalin and buprenorphine transdermal regimen which will be changed upon admission given patient unfortunately missed her recent Wednesday patch change date. If the patch is not available will temporarily transition to oral SL regimen that is equivalent dosing. #13. Obesity: Weight loss and lifestyle changes encouraged. #14. Former tobacco usage: Encourage continued tobacco cessation. #15. ANKITA: BiPAP nightly. #16. GERD: We will maintain on IV PPI until oral intake resumed given acute presentation number 1. #18. DVT prophylaxis: Heparin. #19. CODE status: Patient HCPOA is her significant other/fianc? Azucena and living will is currently in place. Full Code status. Admission Evaluation Time spent evaluating chart, patient history, patient evaluation, care planning and discussion with specialists: 75 minutes. Charges/Coding Visit Charges Inpatient E&M: 87507 Init Hosp L3
[2022-09-01 23:39] VITALS: BMI 31.4
[2022-09-01 23:39] LABS: Magnesium 1.2 mg/dL (1.6-2.6)
[2022-09-01 23:41] LABS: Procalcitonin 1.66 ng/mL (0.00-0.09)
[2022-09-01 23:50] VITALS: O2SAT 95
[2022-09-01 23:52] LABS: Reflex Lactate? Y
[2022-09-02] VITALS (15 sets, daily range): BP systolic 110–134; BP diastolic 43–78; PULSE 68–114; RESP 18–20; TEMP 36.6–36.8; O2SAT 93–100
[2022-09-02 00:39] LABS: Troponin-I HS 13 pg/mL (3.0-54.0)
[2022-09-02] MEDS: HYDROmorphone 0.5 MG/0.5 ML SYRINGE IV ×2 (00:52→09:21)
[2022-09-02] MEDS: Metoclopramide 10 MG/2 ML Vial 5 MG IV ×4 (00:53→16:25)
[2022-09-02] MEDS: 0.9% Saline Lock 10 ML Syringe IV (00:53)
[2022-09-02] MEDS: 0.9% Normal Saline 1,000 ML 150 ML IV ×4 (00:57→20:53)
[2022-09-02] MEDS: traZODone 50 MG Tablet PO (00:58)
[2022-09-02] MEDS: Psyllium 1 PACKET PO ×2 (00:58→08:54)
[2022-09-02 01:19] LABS: Troponin-I HS 14 pg/mL (3.0-54.0)
[2022-09-02] MEDS: Buprenorphine HCl 2 MG TAB.SUBL SL ×3 (01:20→20:52)
[2022-09-02] MEDS: Pregabalin 75 MG Capsule PO ×3 (01:20→20:52)
[2022-09-02 01:29] LABS: Bedside Glucose 143 mg/dL (74-106)
--- NOTE | 2022-09-02 07:08 | NURSING ---
0708 During downtime pts blood sugar was 98 and no coverage was given per pts own insulin sliding scale home pump, documented as not given by Bernie Swanson rn during downtime. Unable to chart this on may as dayshift rn already charted against this scheduled time and is unable to undo their documentation.
[2022-09-02 07:15] LABS: Absolute Lymphocyte Count 2.77 X10^3/uL (0.83-4.51); Absolute Neutrophil Count 6.4 X10^3/uL (2.0-7.7); Basophil# 0.04 X10^3/uL; Basophil% 0.4 % (0-1); Eosinophil# 0.27 X10^3/uL; Eosinophils% 2.6 % (0-5); Hematocrit 43.5 % (37-47); Hemoglobin 13.5 g/dL (12.0-15.0); Lymphocyte # 2.77 X10^3/ul (0.83-4.51); Lymphocyte % 27.2 % (19-41); Mean Corpuscular Hgb 28.2 pg (27.0-32.0); Mean Corpuscular Volume 90.8 fL (81-99); Mean Platelet Vol. 12.8 fl (6.2-12.0); Monocyte# 0.71 X10^3/uL; NRBC Flagged by Analyzer 0.2 % (0-5); Neutrophil # 6.35 X10^3/uL (2.7-7.7); Neutrophil % 62.2 % (47-70); Platelet Count 158 K/mm3 (150-450); RBC Distribution Width CV 16.5 % (11.6-14.6); RBC Distribution Width SD 54.7 fl (35.1-43.9); Red Blood Count 4.79 M/mm3 (4.2-5.4); White Blood Count 10.2 K/mm3 (4.4-11.0)
[2022-09-02 07:28] LABS: Bedside Glucose 98 mg/dL (74-106)
[2022-09-02 07:43] LABS: ALB/GLOB Ratio 0.7 RATIO (0.9-2.4); AST(SGOT) 10 U/L (15-37); Alanine Aminotransfer ALT/SGPT 15 U/L (13-56); Albumin, Serum 2.9 g/dL (3.2-5.0); Alkaline Phosphatase 121 U/L (45-117); Anion Gap 6 (5-15); BUN 30 mg/dL (7-18); BUN/Creat Ratio 13.4 RATIO (10-20); Calcium,Total 8.8 mg/dL (8.5-10.1); Chloride 110 mmol/L (98-107); Creatinine, Serum 2.24 mg/dL (0.55-1.02); EST Glomerular Filtration Rate 23 mL/min (>60); Est Glom Filt Rate - Afr Amer 28 mL/min (>60); Estimated Creatinine Clearance 24.67 ml/min; Globulin 4.1 g/dL (2.2-4.2); Glucose 127 mg/dL (74-106); Potassium 3.6 mmol/L (3.5-5.1); Sodium Level 138 mmol/L (136-145)
[2022-09-02] MEDS: Budesonide Respules 0.5 MG/2 ML AMPUL.NEB. INHALATION ×2 (07:43→19:26)
[2022-09-02] MEDS: Clopidogrel Bisulfate 75 MG Tablet PO (08:53)
[2022-09-02] MEDS: Metoprolol Tartrate 25 MG Tablet 75 MG PO ×2 (08:53→20:51)
[2022-09-02] MEDS: DULoxetine Hcl 30 MG Capsule 90 MG PO (08:54)
[2022-09-02] MEDS: Ursodiol 250 MG Tablet PO ×2 (08:54→20:52)
[2022-09-02] MEDS: Aspirin E.C. 81 MG Tablet PO (08:54)
[2022-09-02] MEDS: Cholestyramine/Sucrose 4 GM/PACKET PO ×2 (08:54→16:24)
[2022-09-02] MEDS: Isosorbide DN 30 MG Tablet PO ×2 (08:55→20:52)
[2022-09-02] MEDS: Dicyclomine 10 MG Capsule 20 MG PO ×3 (08:55→16:25)
[2022-09-02] MEDS: Heparin Injection (Vial) 5,000 UNIT/ML VIAL 5000 UNIT SC ×2 (08:58→20:52)
--- NOTE | 2022-09-02 11:35 | CASEMGMT ---
RN REDD Face to Face with patient for initial transition planning/care coordination assessment. RN CM introduced self and role at [facility]. Patient lying in bed, alert and oriented. Patient willing to participate in assessment and is able to answer all questions appropriately. Care providers, pharmacy, and demographics verified. Patient wishes to discharge home, will monitor progress with therapy for possbile HHC. Patient states she has no further needs or concerns at this time. CM to follow for discharge planning needs that may arise. PCP: Alcides Specialists: Keven, cylinder die machine operator; , retail sales representative; Jacky, commodity manager; Lynsey, high pressure boiler operator Preferred Pharmacy: [facility] Insurance: [employer] Prescription Benefit: yes Living Will/HPOA: yes, Azucena Rajesh, life partner LNOK: life partner Living Arrangements: Patient lives alone in a first floor apartment with 2 steps and railing to enter the home. Patient states she is independent at home. Transportation: self, life partner DME/HHC: Patient has cane, walker, crutches, grab bars, glucometer and supplies at home. Patient has previously been to [facility]. No previous HHC. Patient prefers [facility] for DME. Patient is active with [facility] but does not know her SHWETHA notified. Disposition Plan: Patient to discharge home with family support and follow-up plans in place. Will monitor for HHC and oxygen at discharge. Amie IVAN, RN, CM
[2022-09-02 12:28] LABS: Bedside Glucose 121 mg/dL (74-106)
--- NOTE | 2022-09-02 15:08 | CON.PCM.GI_ITS ---
HPI Consult Data Date of Consult: 09/02/22 HPI Narrative Reason for Consultation: High output ileostomy HPI Narrative: ASHLEY MÉNDEZ, is a 62 F who presents for dehydration and weakness and her labs show a significant increase in her BUN and creatinine ratio. She has a history of gastroparesis, type 2 diabetes, monoclonal gammopathy, ileostomy due to ulcerative colitis and atherosclerotic heart disease who presents with nausea and vomiting started . She is only vomited once in the past 12 hours.? She is having high output from her ileostomy.? She also has been having abdominal discomfort nausea vomiting and high output ostomy. She has a history of ulcerative colitis had toxic megacolon and had a ileostomy placed. She generally has relatively high output but she states she only has to change her bag about twice a day. She does go in once every 2 weeks for IV fluids to maintain hydration. She has had problems when her gastroparesis acts up she gets high output ostomy and has had problems with acute kidney injury. She feels like that is what is happening. About 24 hours ago she started with nausea vomiting abdominal cramping and what she describes as water in her ostomy and she has changed the bag as frequently as every 15 minutes. She was not urinating now which is not typical for her. She feels overall weak. She is not having chest pain or trouble breathing. She is not having fevers or chills. No blood has been seen in the ostomy output. [facility] Medical History Acute kidney injury Anxiety Anxiety and depression Arthritis Avascular necrosis of bone of left hip BiPAP (biphasic positive airway pressure) dependence BMI 31.0-31.9,adult CAD (coronary artery disease) Cardiology follow-up encounter Cellulitis, abdominal wall Chronic back pain Chronic diastolic (congestive) heart failure Chronic narcotic use Chronic respiratory failure Chronic respiratory failure with hypoxia, on home O2 therapy CKD (chronic kidney disease), stage IV COPD (chronic obstructive pulmonary disease) Depression with anxiety Diabetic gastroparesis DM2 (diabetes mellitus, type 2) Elevated anti-tissue transglutaminase (tTG) IgA level Fatty liver FCHL (familial combined hyperlipidemia) Former smoker Gastric reflux Gastroparesis High output ileostomy History of COVID-19 Hx of diabetic gastroparesis Hyperlipidemia Hypertension Ileostomy present Insulin dependent diabetes mellitus Left shoulder pain Liver mass Loss of hearing Menieres disease MGUS (monoclonal gammopathy of unknown significance) Migraine headache Myoclonic jerking Non-alcoholic fatty liver disease Nonalcoholic steatohepatitis Obesity Obstructive sleep apnea Psoriasis Secondary pulmonary arterial hypertension Short bowel syndrome Smoking greater than 20 pack years Type 2 diabetes mellitus with diabetic polyneuropathy Ulcerative colitis Vitamin D deficiency Walker as ambulation aid Wears glasses Home Medications aspirin 81 mg tablet,delayed release 81 mg PO DAILY Check with primary doctor 04/08/21 [History Last Taken 05/27/22] diphenoxylate-atropine 2.5 mg-0.025 mg tablet (Lomotil) 1 tab PO TID PRN diarrhea #90 tabs 05/19/21 [Rx Last Taken 05/17/22] duloxetine 30 mg capsule,delayed release 90 mg PO DAILY Check with primary doctor 10/06/21 [History Last Taken 05/27/22] hyoscyamine sulfate 0.125 mg tablet 0.125 mg PO Q6H PRN dyspepsia #60 tabs 11/04/21 [Rx Last Taken 05/25/22] ondansetron 4 mg disintegrating tablet 4 mg PO Q6H PRN nausea and vomiting #90 tabs 11/04/21 [Rx Last Taken 05/26/22] Wheel Chair 11/15/21 [History Last Taken Unknown] blood sugar diagnostic (True Metrix Glucose Test Strip) 11/15/21 [History Last Taken Unknown] blood-glucose meter,continuous (Dexcom G6 Braze Operator) 11/15/21 [History Last Taken Unknown] pen needle, diabetic 32 gauge x 5/32 (BD Ultra-Fine Key Pen Needle) 11/15/21 [History Last Taken Unknown] buprenorphine 10 mcg/hour weekly transdermal patch 1 patch transdermal Q7D pain 11/18/21 [History Last Taken 05/23/22] loperamide 2 mg capsule (Imodium A-D) 2 mg PO Q6H PRN loose stool #20 caps 11/18/21 [Rx Last Taken 05/14/22] nitroglycerin 0.4 mg sublingual tablet 0.4 mg sublingual Q5-15M PRN chest pain #25 tabs 11/20/21 [Rx Last Taken Unknown] isosorbide dinitrate 30 mg tablet 30 mg PO BID heart #60 tabs 01/16/22 [Rx Last Taken 05/27/22] ostomy supplies #1 ea 02/13/22 [Rx Last Taken Unknown] dicyclomine 10 mg capsule 20 mg PO DAILY Check with primary doctor 03/14/22 [History Last Taken 05/27/22] trazodone 50 mg tablet 50 mg PO QHS sleep 03/14/22 [History Last Taken 05/26/22] clopidogrel 75 mg tablet 75 mg PO DAILY Check with primary doctor #90 tabs 03/16/22 [Rx Last Taken 05/27/22] dapagliflozin propanediol 10 mg tablet (Farxiga) 10 mg PO DAILY #90 tabs 03/19/22 [Rx Last Taken 05/27/22] metoclopramide HCl 5 mg tablet (Reglan) 5 mg PO BID reflux 04/03/22 [History Last Taken 05/25/22] pantoprazole 40 mg tablet,delayed release See Rx Instructions .Route .COMPLEX #28 tabs 04/07/22 [Rx Last Taken 05/27/22] insulin lispro 100 unit/mL subcutaneous pen (Humalog KwikPen (U-100) Insulin) See Protocol subcut ACHS #0 mL 06/02/22 [Rx Last Taken Unknown] blood-glucose sensor (Dexcom G6 Sensor device) #9 ea 06/11/22 [Rx Last Taken Unknown] melatonin 3 mg tablet 5 mg PO QHS PRN PRN Insomnia 07/06/22 [History Last Taken Unknown] lamotrigine 100 mg tablet 100 mg PO DAILY 07/20/22 [History Last Taken Unknown] metoprolol tartrate 25 mg tablet 25 mg PO .COMPLEX bp #180 tabs 07/28/22 [Rx Last Taken Unknown] insulin pump cart,automated,BT (Omnipod 5 G6 Pods (Gen 5) subcutaneous cartridge) #45 ea 07/31/22 [Rx Last Taken Unknown] atorvastatin 80 mg tablet 80 mg PO QHS CHOLESTEROL LOWERING #90 tabs 08/04/22 [Rx Last Taken Unknown] blood-glucose transmitter (Dexcom G6 Transmitter device) #1 ea 08/07/22 [Rx Last Taken Unknown] pregabalin 75 mg capsule 75 mg PO BID pain #60 caps 08/24/22 [Rx Last Taken Unknown] ursodiol 300 mg capsule 300 mg PO BID Check with primary doctor #180 caps 08/24/22 [Rx Last Taken Unknown] insulin lispro 200 unit/mL (3 mL) subcutaneous pen (Humalog KwikPen U-200 Insulin) 130 unit (0.65 mL) subcut .continuous #21 mL 08/28/22 [Rx Last Taken Unknown] dicyclomine 10 mg capsule 10 mg PO QHS 09/01/22 [History Last Taken Unknown] hydrochlorothiazide 25 mg tablet 25 mg PO DAILY 09/01/22 [History Last Taken Unknown] oxycodone 5 mg capsule 5 mg PO PRN PRN Pain 09/01/22 [History Last Taken Unknow n] prednisone 20 mg tablet 20 mg PO BID 09/01/22 [History Last Taken Unknown] metoprolol tartrate 50 mg tablet 50 mg PO .COMPLEX Check with primary doctor 09/02/22 [History Last Taken Unknown] Allergy/AdvReac Type Severity Reaction Status Date / Time ciprofloxacin Allergy Intermediate Swelling Verified 09/01/22 19:09 cinnamon [Cinnamon] Allergy Anaphylaxis Verified 09/01/22 19:09 Influenza Virus Vaccines Allergy Shortness Verified 09/01/22 19:09 of breath liraglutide [From Victoza] Allergy Anaphylaxis Verified 09/01/22 19:09 metformin [From Glucophage] Allergy NEEDS Verified 09/01/22 19:09 FOLLOW-UP metronidazole [From Flagyl] Allergy Hives Verified 09/01/22 19:09 Metronidazole HCl Allergy Hives Verified 09/01/22 19:09 [From Flagyl] Penicillins Allergy Hives Verified 09/01/22 19:09 Sulfa (Sulfonamide Allergy Hives Verified 09/01/22 19:09 Antibiotics) aripiprazole [From Abilify] AdvReac hallucinati Verified 09/01/22 19:09 ons codeine AdvReac Stops Verified 09/01/22 19:09 Ileostomy metformin HCl AdvReac Nausea Verified 09/01/22 19:09 [From Glucophage] ranolazine AdvReac Nausea/Vom/ Verified 09/01/22 19:09 Diarrhea Iptpxre-OWD-LuH Reductase AdvReac Nausea/joints Verified 09/01/22 19:09 Inhibitor ache [Ikrzyaw-Swf-Utw Reductase Inhibitor] Family History Mother CVA (cerebral vascular accident) Diabetes Brother Heart disease of CAD at 65 Myocardial infarction Pancreatitis Father Cancer lymphomia Lymphoma Grandmother Myocardial infarction of [place] in her 70s Sister COPD (chronic obstructive pulmonary disease) Surgical History H/O colectomy H/O coronary artery bypass surgery (05/18/12) H/O sinus surgery H/O total hysterectomy history closed fissure History of History of cardiac catheterization History of cholecystectomy History of coronary artery stent placement (01/12/18) ileostomy Ileostomy status left thumb surgery Status post total hip replacement, left Social History household members: none Smoking Status: Former smoker quit date: 03/08/12 how long ago did patient quit smoking: quit in 2012; 0.5-1ppd x 30yrs alcohol intake: never substance use type: does not use diet: diabetic caffeine: No eating out: 1-3 times/week what type of physical activity do you participate in: none seatbelt use: always do you feel safe at home: Yes ROS ROS Narrative Admission Review of Systems: CONSTITUTIONAL: No weight loss, fever, chills, + weakness or fatigue. HEENT: Eyes: No visual loss, blurred vision, double vision or yellow sclerae. Ears, Nose, Throat: No hearing loss, sneezing, congestion, runny nose or sore throat. SKIN: No rash or itching, lesions, wounds. CARDIOVASCULAR: + Chest pain. No palpitations, edema, orthopnea, syncopal events. RESPIRATORY: + Chronic exertional dyspnea, chronic cough without marked sputum production. No marked wheezing, hemoptysis. GASTROINTESTINAL: + anorexia, nausea, vomiting, high ostomy watery diarrhea output, abdominal pain, No melena, BRBPR. GENITOURINARY: No dysuria, frequency, urgency or retention. NEUROLOGICAL: No headache, dizziness, syncope, paralysis, ataxia, numbness or tingling in the extremities, focal weakness, change in bowel or bladder control, seizure. MUSCULOSKELETAL: + muscle, back pain, joint pain or stiffness. HEMATOLOGIC: + anemia, bleeding or bruising. LYMPHATICS: No enlarged nodes. No history of splenectomy. PSYCHIATRIC: + history of depression or anxiety. ENDOCRINOLOGIC: No reports of sweating, cold or heat intolerance. No polyuria or polydipsia. ALLERGIES: + history of hives, rhinitis, anaphylaxis. Physical Exam Narrative Physical Examination: General: Awake, alert, oriented x 3 and cooperative, seated upright in the ED bed, fatigued and ill appearing. Skin: Normal color, normal turgor, no icterus, no cyanosis. HEENT: AT/NC, EOMI, PERRLA, dry MM, no carotid bruits or JVD noted. Lungs: Diminished, greater bases, appropriate effort, no rales, wheezing or rhonchi. Heart: Mildly tachycardic with regular rhythm; no gallop, rub audible. Abdomen: Soft, obese, mild generalized discomfort with palpation with no rebound or guarding, no marked distention, hyperactive BS, no HSM, LLQ osteomy in place. Extremities: No cyanosis, no clubbing, no marked peripheral edema. Neurological: Patient awake, alert, oriented as noted, cognitive function intact; pupils equally reactive to light and accommodation, cranial nerves II- XII grossly normal, moving all 4 extremities, strength accordingly moderately globally decreased. Psychiatric: Affect appears fatigued, no acute evidence of depressive or anxiety feelings but does have underlying history. Lab / Micro Data 09/02/22 05:40 09/02/22 05:40 Labs: Laboratory Results - last 24 hr 09/01/22 19:40: WBC 11.6 H, RBC 5.55 H, Hgb 15.4 H, Hct 49.1 H, MCV 88.5, MCH 27.7, MCHC 31.4 L, RDW Std Deviation 52.3 H, RDW Coeff of Jan 16.6 H, Plt Count 184, MPV 12.7 H, Immature Gran % (Auto) 0.500, Neut % (Auto) 71.7 H, Lymph % (Auto) 19.2, [place] % (Auto) 5.8, Eos % (Auto) 2.1, Baso % (Auto) 0.7, Absolute Neuts (auto) 8.3 H, Absolute Lymphs (auto) 2.24, Nucleated RBC % 0.3, Sodium 136, Potassium 4.0, Chloride 106, Carbon Dioxide 22.0, Anion Gap 8, BUN 29 H, Creatinine 2.11 H, Estim Creat Clear Calc 26.19, Est GFR (MDRD) Af Amer 30 L, Est GFR (MDRD) Non-Af 25 L, BUN/Creatinine Ratio 13.7, Glucose 175 H, Lactic Acid 2.8 H*, Calcium 9.9, Total Bilirubin 1.10 H, AST 13 L, ALT 19, Alkaline Phosphatase 141 H, Troponin I High Sens 12, Total Protein 8.0, Albumin 3.4, Globulin 4.6 H, Albumin/Globulin Ratio 0.7 L, Lipase 26 09/01/22 20:47: Urine Color Yellow, Urine Clarity Sl. Cloudy, Urine pH 5.0, Ur Specific [place] 1.020, Urine Protein 100 H, Urine Glucose (UA) Normal, Urine Ketones 5 H, Urine Occult Blood 25 H, Urine Nitrite Negative, Urine Bilirubin 1 H, Urine Urobilinogen 1 H, Ur Leukocyte Esterase 25 H, Urine RBC 0-5 SEEN, Urine WBC 0-5 SEEN, Ur Squamous Epith Cells 0-5 SEEN, Amorphous Sediment 1+ URATE, Urine Bacteria 1+, Urine Mucus 0 SEEN 09/01/22 22:58: Magnesium 1.2 L, Procalcitonin 1.66 H 09/01/22 23:11: Troponin I High Sens 13 09/02/22 00:05: POC Glucose 143 H 09/02/22 00:55: Lactic Acid 2.0, Troponin I High Sens 14 09/02/22 05:40: WBC 10.2, RBC 4.79, Hgb 13.5, Hct 43.5, MCV 90.8, MCH 28.2, MCHC 31.0 L, RDW Std Deviation 54.7 H, RDW Coeff of Jan 16.5 H, Plt Count 158, MPV 12.8 H, Immature Gran % (Auto) 0.600, Neut % (Auto) 62.2, Lymph % (Auto) 27.2, [place] % (Auto) 7.0, Eos % (Auto) 2.6, Baso % (Auto) 0.4, Absolute Neuts (auto) 6.4, Absolute Lymphs (auto) 2.77, Nucleated RBC % 0.2, Sodium 138, Potassium 3.6, Chloride 110 H, Carbon Dioxide 22.0, Anion Gap 6, BUN 30 H, Creatinine 2.24 H, Estim Creat Clear Calc 24.67, Est GFR (MDRD) Af Amer 28 L, Est GFR (MDRD) Non-Af 23 L, BUN/Creatinine Ratio 13.4, Glucose 127 H, Calcium 8.8, Total Bilirubin 0.70, AST 10 L, ALT 15, Alkaline Phosphatase 121 H, Total Protein 7.0, Albumin 2.9 L, Globulin 4.1, Albumin/Globulin Ratio 0.7 L 09/02/22 07:06: POC Glucose 98 09/02/22 12:10: POC Glucose 121 H Micro: Microbiology 09/01/22 23:40 Stool Enteric Bacteriology - Final 09/01/22 23:40 Stool C. difficile DNA Amplification - Final Radiology Impression Chest X-Ray 09/01/22 23:04 IMPRESSION: No acute findings in the chest. Electronically Signed: Cesar Rivera MD at 23:55 EDT , Assessment & Plan Assessment/Plan (1) High output ileostomy: PLAN: She has a history of ulcerative colitis , status post total proctocolectomy with J-pouch , proximal diversion with loop ileostomy with 270cm small bowel remaining, presented in following 5 days of high output from his ileostomy. Her BUN and creatinine were 35 and 2.2 respectively, with a reported 24 hour urine output of 1 liter , but stated he sometimes goes a day or so without urinating every 4 to 6 weeks. She is feeling a lot better at this time. I do not know what caused this recent episode of high output ileostomy. She is having almost no fluid come from her ileostomy. She does have elements of short gut syndrome and we tried to get her Gattex and octreotide. However it was not approved by insurance. Therefore we manage that part with Imodium as needed, PPI BID, 5 mg Lomotil QID, 8 mg Imodium QID, Metamucil TID, cholestyramine BID, oxycodone PRN. She is responding very well to conservative measures as per nursing. She only had her Ostomy bag emptied 1 time in the last 8 hours. There is no sign infection in her stool so far. I am suspect she has exacerbation of short gut syndrome. Hopefully can be resolved without the use of octreotide. (2) Acute kidney injury superimposed on CKD: Charges/Coding Visit Charges Inpatient E&M: 44347 Init Hosp L3
--- NOTE | 2022-09-02 15:22 | PN.HOSP_ITS ---
Reason for Visit Reason for Visit: Diagnoses Acute kidney failure, unspecified (09/01/22) Chronic kidney disease, unspecified (09/01/22) Nausea with vomiting, unspecified (09/01/22) Other specified symptoms and signs involving the digestive system and abdomen (09/01/22) Ileostomy status (09/01/22) Subjective Subjective Patient was seen and examined today, she has no complaints of any abdominal pain. She was seen by gastroenterology in consultation. Objective Data Objective Data Vital Signs: Vital Signs Temp Pulse Resp BP Pulse Ox O2 Del Method O2 Flow Rate 98.0 F 68 20 H 122/78 H 93 Nasal Cannula 5 09/02/22 06:50 09/02/22 08:53 09/02/22 07:49 09/02/22 08:53 09/02/22 07:48 09/02/22 10:00 09/02/22 07:48 Oxygen Flow Rate (L/min) 5 Oxygen Delivery Method Nasal Cannula Weight: 91 kg Body Mass Index (BMI) 31.4 Intake & Output: Intake and Output for Last 24 Hours 08/31/22 09/01/22 09/02/22 23:59 23:59 23:59 Intake Total 1000 / 1000 1147.5 / 1147.5 Output Total 350 / 350 0 / 0 Balance 650 / 650 1147.5 / 1147.5 Lab / Micro Data 09/02/22 05:40 09/02/22 05:40 Labs: Laboratory Results - last 24 hr 09/01/22 19:40: WBC 11.6 H, RBC 5.55 H, Hgb 15.4 H, Hct 49.1 H, MCV 88.5, MCH 27.7, MCHC 31.4 L, RDW Std Deviation 52.3 H, RDW Coeff of Jan 16.6 H, Plt Count 184, MPV 12.7 H, Immature Gran % (Auto) 0.500, Neut % (Auto) 71.7 H, Lymph % (Auto) 19.2, [place] % (Auto) 5.8, Eos % (Auto) 2.1, Baso % (Auto) 0.7, Absolute Neuts (auto) 8.3 H, Absolute Lymphs (auto) 2.24, Nucleated RBC % 0.3, Sodium 136, Potassium 4.0, Chloride 106, Carbon Dioxide 22.0, Anion Gap 8, BUN 29 H, Creatinine 2.11 H, Estim Creat Clear Calc 26.19, Est GFR (MDRD) Af Amer 30 L, Est GFR (MDRD) Non-Af 25 L, BUN/Creatinine Ratio 13.7, Glucose 175 H, Lactic Acid 2.8 H*, Calcium 9.9, Total Bilirubin 1.10 H, AST 13 L, ALT 19, Alkaline Phosphatase 141 H, Troponin I High Sens 12, Total Protein 8.0, Albumin 3.4, Globulin 4.6 H, Albumin/Globulin Ratio 0.7 L, Lipase 26 09/01/22 20:47: Urine Color Yellow, Urine Clarity Sl. Cloudy, Urine pH 5.0, Ur Specific [place] 1.020, Urine Protein 100 H, Urine Glucose (UA) Normal, Urine Ketones 5 H, Urine Occult Blood 25 H, Urine Nitrite Negative, Urine Bilirubin 1 H, Urine Urobilinogen 1 H, Ur Leukocyte Esterase 25 H, Urine RBC 0-5 SEEN, Urine WBC 0-5 SEEN, Ur Squamous Epith Cells 0-5 SEEN, Amorphous Sediment 1+ URATE, Urine Bacteria 1+, Urine Mucus 0 SEEN 09/01/22 22:58: Magnesium 1.2 L, Procalcitonin 1.66 H 09/01/22 23:11: Troponin I High Sens 13 09/02/22 00:05: POC Glucose 143 H 09/02/22 00:55: Lactic Acid 2.0, Troponin I High Sens 14 09/02/22 05:40: WBC 10.2, RBC 4.79, Hgb 13.5, Hct 43.5, MCV 90.8, MCH 28.2, MCHC 31.0 L, RDW Std Deviation 54.7 H, RDW Coeff of Jan 16.5 H, Plt Count 158, MPV 12.8 H, Immature Gran % (Auto) 0.600, Neut % (Auto) 62.2, Lymph % (Auto) 27.2, [place] % (Auto) 7.0, Eos % (Auto) 2.6, Baso % (Auto) 0.4, Absolute Neuts (auto) 6.4, Absolute Lymphs (auto) 2.77, Nucleated RBC % 0.2, Sodium 138, Potassium 3.6, Chloride 110 H, Carbon Dioxide 22.0, Anion Gap 6, BUN 30 H, Creatinine 2.24 H, Estim Creat Clear Calc 24.67, Est GFR (MDRD) Af Amer 28 L, Est GFR (MDRD) Non-Af 23 L, BUN/Creatinine Ratio 13.4, Glucose 127 H, Calcium 8.8, Total Bilirubin 0.70, AST 10 L, ALT 15, Alkaline Phosphatase 121 H, Total Protein 7.0, Albumin 2.9 L, Globulin 4.1, Albumin/Globulin Ratio 0.7 L 09/02/22 07:06: POC Glucose 98 09/02/22 12:10: POC Glucose 121 H Micro: Microbiology 09/01/22 23:40 Stool Enteric Bacteriology - Final 09/01/22 23:40 Stool C. difficile DNA Amplification - Final Radiography Diagnostic Testing: Radiology Impression Chest X-Ray 09/01/22 23:04 IMPRESSION: No acute findings in the chest. Electronically Signed: Cesar Rivera MD at 23:55 EDT Reading Location ID and State: [facility] / [place] Tel , Service support , Physical Exam Const alert, oriented x3, no apparent distress and average body habitus General Appearance: cooperative, well kempt and well developed Orientation / Consciousness: awake, oriented to person, oriented to place and oriented to time HEENT normocephalic and moist oral mucous membranes Eyes PERRL, EOMs intact bilaterally and conjunctivae normal Neck supple, no JVD, thyroid normal and no carotid bruits General: trachea midline Resp normal respiratory effort, no retractions, no use of accessory muscles and clear to auscultation bilaterally Auscultation: Negative for rales, rhonchi or wheezes Cardio regular rate, regular rhythm, S1 normal heart sound, S2 normal heart sound, no murmurs, no rub and no gallops GI normal to inspection, nondistended, normoactive bowel sounds, soft to palpation, non-tender and non-distended GI Narrative: Ostomy present in the left lower quadrant Extremity no clubbing, cyanosis or edema Skin no rashes or lesions noted General Skin Exam: no breakdown Neuro oriented x3, CN's II-XII intact bilaterally, moves all extremities, no focal motor deficits and no sensory deficits noted Sensorium / Orientation: awake, alert, oriented to person, oriented to place and oriented to time Speech: speech normal Psych affect normal Assessment & Plan Assessment/Plan (1) Nausea & vomiting: PLAN: Plan 1. Intractable nausea and vomiting with increased ostomy output-continue IV fluids at this time, patient's C. difficile and enteric pathogen panel was unremarkable. Patient is currently on cholestyramine. #2 type 2 diabetes-continue insulin pump per home regimen with Accu-Cheks with sliding scale insulin per home insulin pump #3 ulcerative colitis-status post proctocolectomy with ileostomy #4 acute kidney injury on an overlay of chronic kidney disease stage IIIb- continue IV fluids, monitor labs Total clinical time spent by myself addressing the patient's medical issues, reviewing all of her data, and collaborating with patient's care team: 35 minutes Charges/Coding Visit Charges Inpatient E&M: 87094 Subs Hosp L2
[2022-09-02 16:59] LABS: Bedside Glucose 137 mg/dL (74-106)
[2022-09-02] MEDS: Atorvastatin Calcium 80 MG Tablet PO (20:52)
[2022-09-03] VITALS (12 sets, daily range): BP systolic 109–127; BP diastolic 55–80; PULSE 69–94; RESP 16–20; TEMP 36.6–37.1; O2SAT 88–100; BMI 33.3
--- NOTE | 2022-09-03 00:09 | CPS ---
Offered bipap to Pt , Pt declined. RN notified
[2022-09-03] MEDS: Metoclopramide 10 MG/2 ML Vial 5 MG IV ×5 (00:27→23:24)
--- NOTE | 2022-09-03 01:24 | NURSING ---
bladder scanned for 174
[2022-09-03] MEDS: Magnesium Sulfate 4gm/100mL 4 GM/100 ML IV.SOLN. IV (02:07)
[2022-09-03 03:49] LABS: Bedside Glucose 96 mg/dL (74-106)
--- NOTE | 2022-09-03 04:03 | PCA ---
RN notified of weight differential
[2022-09-03] MEDS: 0.9% Normal Saline 1,000 ML 150 ML IV ×2 (04:11→11:31)
[2022-09-03] MEDS: Dicyclomine 10 MG Capsule 20 MG PO ×3 (06:08→17:11)
[2022-09-03] MEDS: Cholestyramine/Sucrose 4 GM/PACKET PO ×2 (06:08→18:14)
[2022-09-03 06:44] LABS: Anion Gap 1 (5-15); BUN 31 mg/dL (7-18); BUN/Creat Ratio 12.7 RATIO (10-20); Chloride 116 mmol/L (98-107); Creatinine, Serum 2.44 mg/dL (0.55-1.02); EST Glomerular Filtration Rate 21 mL/min (>60); Est Glom Filt Rate - Afr Amer 26 mL/min (>60); Estimated Creatinine Clearance 22.65 ml/min; Glucose 95 mg/dL (74-106); Potassium 4.6 mmol/L (3.5-5.1); Sodium Level 137 mmol/L (136-145)
[2022-09-03 06:57] LABS: Bedside Glucose 85 mg/dL (74-106)
[2022-09-03 06:59] LABS: Magnesium 2.2 mg/dL (1.6-2.6)
--- NOTE | 2022-09-03 07:00 | RAD_ITS ---
INDICATION: Hypoxia EXAMINATION/TECHNIQUE: X-RAY - XR Chest 1 View COMPARISON: September 01, 2022. FINDINGS: LINES/DEVICES: None. LUNGS: No consolidation, edema or effusion. No pneumothorax. MEDIASTINUM AND CARDIOVASCULAR STRUCTURES: Cardiac silhouette not enlarged. BONES AND SOFT TISSUES: Sternotomy wires are midline and intact.. RAD/Chest 1 View (Portable) IMPRESSION: No radiographic evidence of acute cardiopulmonary disease. Electronically Signed: Royce Renteria MD at 5:21 EDT ,
[2022-09-03] MEDS: Budesonide Respules 0.5 MG/2 ML AMPUL.NEB. INHALATION ×2 (07:08→19:55)
[2022-09-03] MEDS: Metoprolol Tartrate 25 MG Tablet 75 MG PO ×2 (12:52→21:40)
[2022-09-03] MEDS: Heparin Injection (Vial) 5,000 UNIT/ML VIAL 5000 UNIT SC ×2 (12:52→21:40)
[2022-09-03] MEDS: Psyllium 1 PACKET PO (12:52)
[2022-09-03] MEDS: Clopidogrel Bisulfate 75 MG Tablet PO (12:52)
[2022-09-03] MEDS: Ursodiol 250 MG Tablet PO ×2 (12:52→21:40)
[2022-09-03] MEDS: Aspirin E.C. 81 MG Tablet PO (12:53)
[2022-09-03] MEDS: Isosorbide DN 30 MG Tablet PO ×2 (12:53→21:40)
[2022-09-03] MEDS: DULoxetine Hcl 30 MG Capsule 90 MG PO (12:53)
[2022-09-03 13:56] LABS: Bedside Glucose 98 mg/dL (74-106)
--- NOTE | 2022-09-03 14:24 | CASEMGMT ---
RN REDD indicated patient has a [employer] heel caser, but she does not know the name. SW called [employer] coverage line and patient's heel caser is Marimar Cain: phone:[phone] and fax: [phone]. Patient's only service is 10 meals per week from [employer]. May Shin MSW TRINY
--- NOTE | 2022-09-03 15:52 | PN.HOSP_ITS ---
Reason for Visit Reason for Visit: Diagnoses Acute kidney failure, unspecified (09/01/22) Chronic kidney disease, unspecified (09/01/22) Nausea with vomiting, unspecified (09/01/22) Other specified symptoms and signs involving the digestive system and abdomen (09/01/22) Ileostomy status (09/01/22) Subjective Subjective Patient was seen and examined today, nursing reports that she has been confused today, she answers questions with a simple yes or no to this examiner. I have made the decision to stop her Dilaudid, family request that her outpatient pain patch be reapplied and I am okay with this. I have decided to keep the patient on Oxy IR as needed. Patient's creatinine was slightly worse today at 2.44, I will repeat her BMP tomorrow Objective Data Objective Data Vital Signs: Vital Signs Temp Pulse Resp BP Pulse Ox O2 Del Method O2 Flow Rate 97.9 F 69 16 111/60 99 Nasal Cannula 2 09/03/22 15:48 09/03/22 15:48 09/03/22 15:48 09/03/22 15:48 09/03/22 15:48 09/03/22 15:48 09/03/22 15:48 Oxygen Flow Rate (L/min) 2 Oxygen Delivery Method Nasal Cannula Weight: 96.7 kg Body Mass Index (BMI) 33.3 Intake & Output: Intake and Output for Last 24 Hours 09/01/22 09/02/22 09/03/22 23:59 23:59 23:59 Intake Total 1000 / 1000 5130.0 / 5130.0 2210 / 2210 Output Total 350 / 350 200 / 200 0 / 0 Balance 650 / 650 4930.0 / 4930.0 2210 / 2210 Lab / Micro Data 09/02/22 05:40 09/03/22 05:35 Labs: Laboratory Results - last 24 hr 09/02/22 16:23: POC Glucose 137 H 09/03/22 00:23: POC Glucose 96 09/03/22 05:35: Sodium 137, Potassium 4.6, Chloride 116 H, Carbon Dioxide 20.0 L , Anion Gap 1 L, BUN 31 H, Creatinine 2.44 H, Estim Creat Clear Calc 22.65, Est GFR (MDRD) Af Amer 26 L, Est GFR (MDRD) Non-Af 21 L, BUN/Creatinine Ratio 12.7, Glucose 95, Calcium 8.0 L, Magnesium 2.2 09/03/22 06:08: POC Glucose 85 09/03/22 12:58: POC Glucose 98 Micro: Microbiology 09/01/22 23:40 Stool Enteric Bacteriology - Final 09/01/22 23:40 Stool C. difficile DNA Amplification - Final Radiography Diagnostic Testing: Radiology Impression Chest X-Ray 09/03/22 07:00 IMPRESSION: No radiographic evidence of acute cardiopulmonary disease. Electronically Signed: Royce Renteria MD at 5:21 EDT , Physical Exam Const alert and no apparent distress Constitutional Narrative: Patient is older than her stated age, she exhibits moderate confusion General Appearance: cooperative, well kempt and well developed Orientation / Consciousness: awake HEENT normocephalic, head/scalp atraumatic and moist oral mucous membranes Eyes PERRL, EOMs intact bilaterally and conjunctivae normal Neck supple, no JVD, thyroid normal and no carotid bruits General: trachea midline Resp normal respiratory effort, no retractions, no use of accessory muscles and clear to auscultation bilaterally Auscultation: Negative for rales, rhonchi or wheezes Cardio regular rate, regular rhythm, S1 normal heart sound, S2 normal heart sound, no murmurs, no rub and no gallops GI normal to inspection, nondistended, normoactive bowel sounds, soft to palpation, non-tender and non-distended GI Narrative: Ileostomy is present Extremity no clubbing, cyanosis or edema Skin no rashes or lesions noted General Skin Exam: no breakdown Neuro oriented x3, CN's II-XII intact bilaterally, moves all extremities, no focal motor deficits and no sensory deficits noted Neuro Narrative: Patient appears confused Sensorium / Orientation: awake and alert Psych Psych Narrative: Patient appears confused Assessment & Plan Assessment/Plan (1) Nausea & vomiting: PLAN: Plan 1. Intractable nausea and vomiting with increased ostomy output-continue IV fluids at this time-I have decided to decrease the patient's IV rate, patient's C. difficile and enteric pathogen panel was unremarkable. Patient is currently on cholestyramine. #2 type 2 diabetes-continue insulin pump per home regimen with Accu-Cheks with sliding scale insulin per home insulin pump #3 ulcerative colitis-status post proctocolectomy with ileostomy #4 acute kidney injury on an overlay of chronic kidney disease stage IIIb- continue IV fluids, monitor labs #5 confusion-probably secondary to medication, again patient's Dilaudid was stopped, she will be changed over to her home pain patch Total clinical time spent by myself addressing the patient's medical issues, reviewing all of her data, and collaborating with patient's care team: 35 minutes Charges/Coding Visit Charges Inpatient E&M: 66674 Subs Hosp L2
[2022-09-03] MEDS: BUPRENORPHINE 15 MCG/HR PATCH 1 EACH TD (16:13)
[2022-09-03 17:39] LABS: Bedside Glucose 86 mg/dL (74-106)
[2022-09-03] MEDS: 0.9% Normal Saline 1,000 ML 100 ML IV (18:18)
--- NOTE | 2022-09-03 19:02 | PN.GI_ITS ---
Subjective Subjective It was noted the patient was more confused today. Her output from ileostomy has slowed down but is still close to half a liter. Objective Data Objective Data Vital Signs: Vital Signs Temp Pulse Resp BP Pulse Ox O2 Del Method O2 Flow Rate 97.9 F 69 16 111/60 99 Nasal Cannula 2 09/03/22 15:48 09/03/22 15:48 09/03/22 15:48 09/03/22 15:48 09/03/22 15:48 09/03/22 15:48 09/03/22 15:48 Oxygen Flow Rate (L/min) 2 Oxygen Delivery Method Nasal Cannula Weight: 213 lb 2.992 oz Body Mass Index (BMI) 33.3 Intake & Output: Intake and Output for Last 24 Hours 09/01/22 09/02/22 09/03/22 23:59 23:59 23:59 Intake Total 1000 / 1000 5130.0 / 5130.0 4045 / 4045 Output Total 350 / 350 200 / 200 800 / 800 Balance 650 / 650 4930.0 / 4930.0 3245 / 3245 Lab / Micro Data 09/02/22 05:40 09/03/22 05:35 Labs: Laboratory Results - last 24 hr 09/03/22 00:23: POC Glucose 96 09/03/22 05:35: Sodium 137, Potassium 4.6, Chloride 116 H, Carbon Dioxide 20.0 L , Anion Gap 1 L, BUN 31 H, Creatinine 2.44 H, Estim Creat Clear Calc 22.65, Est GFR (MDRD) Af Amer 26 L, Est GFR (MDRD) Non-Af 21 L, BUN/Creatinine Ratio 12.7, Glucose 95, Calcium 8.0 L, Magnesium 2.2 09/03/22 06:08: POC Glucose 85 09/03/22 12:58: POC Glucose 98 09/03/22 17:09: POC Glucose 86 Micro: Microbiology 09/01/22 23:40 Stool Enteric Bacteriology - Final 09/01/22 23:40 Stool C. difficile DNA Amplification - Final Radiography Diagnostic Testing: Radiology Impression Chest X-Ray 09/03/22 07:00 IMPRESSION: No radiographic evidence of acute cardiopulmonary disease. Electronically Signed: Royce Renteria MD at 5:21 EDT , Physical Exam Narrative Patient knows who I am. Patient knows where she is. Patient knows the year and the president. Const alert, oriented x3, no apparent distress and average body habitus General Appearance: cooperative, well kempt and well developed Orientation / Consciousness: awake, oriented to person, oriented to place and oriented to time HEENT normocephalic and moist oral mucous membranes Eyes PERRL, EOMs intact bilaterally and conjunctivae normal Neck supple, no JVD, thyroid normal and no carotid bruits General: trachea midline Resp normal respiratory effort, no retractions, no use of accessory muscles and clear to auscultation bilaterally Auscultation: Negative for rales, rhonchi or wheezes Cardio regular rate, regular rhythm, S1 normal heart sound, S2 normal heart sound, no murmurs, no rub and no gallops GI normal to inspection, nondistended, normoactive bowel sounds, soft to palpation, non-tender and non-distended GI Narrative: Ostomy present in the left lower quadrant Extremity no clubbing, cyanosis or edema Skin no rashes or lesions noted General Skin Exam: no breakdown Neuro oriented x3, CN's II-XII intact bilaterally, moves all extremities, no focal motor deficits and no sensory deficits noted Sensorium / Orientation: awake, alert, oriented to person, oriented to place and oriented to time Speech: speech normal Psych affect normal Assessment & Plan Assessment/Plan (1) High output ileostomy: PLAN: She has a history of ulcerative colitis , status post total proc tocolectomy with J-pouch , proximal diversion with loop ileostomy with 270cm small bowel remaining, presented in following 5 days of high output from his ileostomy. Her BUN and creatinine were 35 and 2.2 respectively, with a reported 24 hour urine output of 1 liter , but stated he sometimes goes a day or so without urinating every 4 to 6 weeks. She is feeling a lot better at this time. I do not know what caused this recent episode of high output ileostomy. She is having almost no fluid come from her ileostomy. She does have elements of short gut syndrome and we tried to get her Gattex and octreotide. However it was not approved by insurance. Therefore we manage that part with Imodium as needed, PPI BID, 5 mg Lomotil QID, 8 mg Imodium QID, Metamucil TID, cholestyramine BID, oxycodone PRN. She is responding very well to conservative measures as per nursing. She only had her Ostomy bag emptied 1 time in the last 8 hours. There is no sign infection in her stool so far. I am suspect she has exacerbation of short gut syndrome. Hopefully can be resolved without the use of octreotide. 09/03: Her output is slowing down. However I am not sure that her acute kidney injury is not worsened secondary to increased output from her ileostomy. Therefore I will put her on a octreotide and PPI drip. (2) Acute kidney injury superimposed on CKD: Charges/Coding Visit Charges Inpatient E&M: 79457 Subs Hosp L3
[2022-09-03] MEDS: Pregabalin 75 MG Capsule PO (21:40)
[2022-09-03] MEDS: Atorvastatin Calcium 80 MG Tablet PO (21:40)
[2022-09-04] VITALS (8 sets, daily range): BP systolic 100–119; BP diastolic 54–76; PULSE 65–81; RESP 16–26; TEMP 35.8–36.8; O2SAT 96–100; BMI 33.3
[2022-09-04] MEDS: Dextrose 50%-Water 25 GM/50 ML DISP.SYRIN IV (00:38)
[2022-09-04 01:18] LABS: Bedside Glucose 61 mg/dL (74-106)
[2022-09-04 01:18] LABS: Bedside Glucose 75 mg/dL (74-106)
[2022-09-04 01:18] LABS: Bedside Glucose 157 mg/dL (74-106)
[2022-09-04] MEDS: 0.9% Normal Saline 1,000 ML 100 ML IV ×2 (04:38→13:54)
[2022-09-04] MEDS: Dicyclomine 10 MG Capsule 20 MG PO ×3 (06:03→17:37)
[2022-09-04] MEDS: Cholestyramine/Sucrose 4 GM/PACKET PO ×2 (06:03→17:37)
[2022-09-04] MEDS: Metoclopramide 10 MG/2 ML Vial 5 MG IV ×3 (06:03→17:37)
[2022-09-04 07:00] LABS: Bedside Glucose 87 mg/dL (74-106)
[2022-09-04] MEDS: Budesonide Respules 0.5 MG/2 ML AMPUL.NEB. INHALATION ×2 (07:32→19:14)
[2022-09-04] MEDS: Psyllium 1 PACKET PO ×2 (08:49→22:26)
[2022-09-04] MEDS: Ursodiol 250 MG Tablet PO ×2 (08:49→22:27)
[2022-09-04] MEDS: Heparin Injection (Vial) 5,000 UNIT/ML VIAL 5000 UNIT SC ×2 (08:49→22:26)
[2022-09-04] MEDS: Clopidogrel Bisulfate 75 MG Tablet PO (08:49)
[2022-09-04] MEDS: Aspirin E.C. 81 MG Tablet PO (08:49)
--- NOTE | 2022-09-04 11:35 | CASEMGMT ---
Social Work Pt's significant other Azucena is here, asking to speak w/SW as she does not feel she can care for pt at home at present. SW met w/pt and significant other in room. Pt in and out of staying awake during conversation, pt grabbing at things that are not there, and setting them down. SW spoke w/pt and significant other about possible SNF placement. Pt was able to say she would want [facility] if SNF needed. SW spoke w/Azucena further about placement, provided to her a SNF list via [facility] of facilities in network w/pt's insurance, preferred geographic area, and complete w/quality and resource use data. Azucena also in agreement w/referral to [facility]. She states if pt improves she would take him home but does not feel pt could return home in the state she is in at present. She states she does live w/pt but is at present staying w/her father as he needs help, so pt is home alone. SW explained we can start the referral process and then see how pt does over the next couple of days. If she improves we can change the plan back to home but otherwise we will stick with the plan for [facility]. Azucena states understanding. Tari d/lonny systems planner, starting referral process. PT/OT just ordered, so those notes will be sent when evaluations completed. Plan: SNF, referral to [facility]. SW will continue to follow. MOODY Gracia
--- NOTE | 2022-09-04 11:37 | CASEMGMT ---
Discharge Planning Referral sent to [facility] via [facility]. Tari Samuels, Discharge Planning Asst.
--- NOTE | 2022-09-04 11:48 | CASEMGMT ---
Discharge Planning Patient has been accepted by [facility]. notified. Tari Samuels, Discharge Planning Asst.
--- NOTE | 2022-09-04 12:56 | CASEMGMT ---
Social Work POA for Healthcare is scanned into [facility] with living will provision initialed. Azucena Borrero is pt's healthcare POA. MOODY Gracia
[2022-09-04 13:15] LABS: Bedside Glucose 80 mg/dL (74-106)
--- NOTE | 2022-09-04 15:12 | CASEMGMT ---
Social Work [facility] accepted pt, pending PT/OT and precert. As per physician it is anticipated pt will be here through the weekend, [facility] aware. SW spoke w/pt and pt's significant other, let them both know pt will be here through the weekend. Azucena would be okay w/pt going home if she clears and starts moving better, but as of now the plan will continue to be for pt to go to [facility] at discharge. MOODY Gracia
--- NOTE | 2022-09-04 16:58 | PCM.PN.HOSP ---
Reason for Visit Reason for Visit: Diagnoses Acute kidney failure, unspecified (09/01/22) Chronic kidney disease, unspecified (09/01/22) Nausea with vomiting, unspecified (09/01/22) Other specified symptoms and signs involving the digestive system and abdomen (09/01/22) Ileostomy status (09/01/22) Subjective Subjective Patient was seen and examined today, she appears confused today and hallucinates at times. Patient's significant other states that the patient had been out of her pain patches for several days prior to coming to the hospital, I made the decision today to program the patient on Oxy IR, I have also made the decision to keep her on her pain patch at this time. I shanda an ammonia level on the patient today which is slightly elevated but I do not feel this is what is causing her confusion. I talked briefly with gastroenterology about her care, they did not think the elevated level of the ammonia was causing confusion. Patient's significant other requested that the patient go to an extended care facility for short-term inpatient rehab services, placement will not be accomplished until next week due to timing over the weekend. Objective Data Objective Data Vital Signs: Vital Signs Temp Pulse Resp BP Pulse Ox O2 Del Method O2 Flow Rate 98.0 F 65 18 100/54 L 100 Nasal Cannula 2 09/04/22 09:30 09/04/22 09:30 09/04/22 09:30 09/04/22 09:30 09/04/22 09:00 09/04/22 14:00 09/04/22 15:15 Oxygen Flow Rate (L/min) 2 Oxygen Delivery Method Nasal Cannula Weight: 96.7 kg Body Mass Index (BMI) 33.3 Intake & Output: Intake and Output for Last 24 Hours 09/02/22 09/03/22 09/04/22 23:59 23:59 23:59 Intake Total 5130.0 / 5130.0 4045 / 4045 2730.67 / 2730.67 Output Total 200 / 200 1000 / 1000 350 / 350 Balance 4930.0 / 4930.0 3045 / 3045 2380.67 / 2380.67 Lab / Micro Data 09/02/22 05:40 09/03/22 05:35 Labs: Laboratory Results - last 24 hr 09/03/22 17:09: POC Glucose 86 06/29/23 23:17: POC Glucose 61 L 09/03/22 23:34: POC Glucose 75 09/04/22 01:00: POC Glucose 157 H 09/04/22 06:00: POC Glucose 87 09/04/22 11:48: Ammonia 46.0 H 09/04/22 12:58: POC Glucose 80 Micro: Microbiology 09/01/22 23:40 Stool Enteric Bacteriology - Final 09/01/22 23:40 Stool C. difficile DNA Amplification - Final Physical Exam Narrative alert and no apparent distress Constitutional Narrative: Patient is older than her stated age, she exhibits moderate confusion General Appearance: cooperative, well kempt and well developed Orientation / Consciousness: awake HEENT normocephalic, head/scalp atraumatic and moist oral mucous membranes Eyes PERRL, EOMs intact bilaterally and conjunctivae normal Neck supple, no JVD, thyroid normal and no carotid bruits General: trachea midline Resp normal respiratory effort, no retractions, no use of accessory muscles and clear to auscultation bilaterally Auscultation: Negative for rales, rhonchi or wheezes Cardio regular rate, regular rhythm, S1 normal heart sound, S2 normal heart sound, no murmurs, no rub and no gallops GI normal to inspection, nondistended, normoactive bowel sounds, soft to palpation, non-tender and non-distended GI Narrative: Ileostomy is present Extremity no clubbing, cyanosis or edema Skin no rashes or lesions noted General Skin Exam: no breakdown Neuro oriented x3, CN's II-XII intact bilaterally, moves all extremities, no focal motor deficits and no sensory deficits noted Neuro Narrative: Patient appears confused Sensorium / Orientation: awake and alert Psych Psych Narrative: Patient appears confused, she is exhibiting some hallucinations. Assessment & Plan Assessment/Plan (1) DM2 (diabetes mellitus, type 2): QUALIFIERS: Diabetes mellitus complication status: with hyperglycemia Diabetes mellitus [facility] insulin use: with [facility] use Qualified Code(s): E11.65 - Type 2 diabetes mellitus with hyperglycemia; Z79.4 - longterm (current) use of insulin (2) Nausea & vomiting: PLAN: Plan 1. Intractable nausea and vomiting with increased ostomy output-continue IV fluids at this time-, patient's C. difficile and enteric pathogen panel was unremarkable. Patient is currently on cholestyramine and octreotide #2 type 2 diabetes-continue insulin pump per home regimen with Accu-Cheks with sliding scale insulin per home insulin pump #3 ulcerative colitis-status post proctocolectomy with ileostomy #4 acute kidney injury on an overlay of chronic kidney disease stage IIIb-continue IV fluids, monitor labs #5 Encephalopathy-possibly secondary to narcotic withdrawal, patient will remain on narcotics at this time including her Butrans patch Total clinical time spent by myself addressing the patient's medical issues, reviewing all of her data, and collaborating with patient's care team: 35 minutes Charges/Coding Visit Charges Inpatient E&M: 70632 Subs Hosp L2
[2022-09-04 17:49] LABS: Bedside Glucose 116 mg/dL (74-106)
[2022-09-04] MEDS: Metoprolol Tartrate 25 MG Tablet 75 MG PO (22:27)
[2022-09-04] MEDS: Atorvastatin Calcium 80 MG Tablet PO (22:27)
[2022-09-04] MEDS: traZODone 50 MG Tablet PO (22:27)
[2022-09-04] MEDS: Isosorbide DN 30 MG Tablet PO (22:35)
[2022-09-04 22:38] LABS: Bedside Glucose 80 mg/dL (74-106)
[2022-09-05] VITALS (11 sets, daily range): BP systolic 111–165; BP diastolic 62–77; PULSE 70–85; RESP 18–24; TEMP 36.7–36.9; O2SAT 93–97; BMI 33.4
[2022-09-05] MEDS: 0.9% Normal Saline 1,000 ML 100 ML IV ×3 (00:55→18:41)
[2022-09-05] MEDS: Cholestyramine/Sucrose 4 GM/PACKET PO ×2 (05:37→16:23)
[2022-09-05] MEDS: Dicyclomine 10 MG Capsule 20 MG PO ×3 (05:37→16:23)
[2022-09-05] MEDS: Budesonide Respules 0.5 MG/2 ML AMPUL.NEB. INHALATION (06:32)
[2022-09-05 07:35] LABS: Bedside Glucose 76 mg/dL (74-106)
[2022-09-05] MEDS: Aspirin E.C. 81 MG Tablet PO (08:47)
[2022-09-05] MEDS: DULoxetine Hcl 30 MG Capsule 90 MG PO (08:47)
[2022-09-05] MEDS: Heparin Injection (Vial) 5,000 UNIT/ML VIAL 5000 UNIT SC ×2 (08:48→21:54)
[2022-09-05] MEDS: Psyllium 1 PACKET PO ×2 (08:48→21:53)
[2022-09-05] MEDS: Isosorbide DN 30 MG Tablet PO ×2 (08:48→21:50)
[2022-09-05] MEDS: Metoprolol Tartrate 25 MG Tablet 75 MG PO ×2 (08:48→21:50)
[2022-09-05] MEDS: Ursodiol 250 MG Tablet PO ×2 (08:49→21:53)
[2022-09-05] MEDS: Clopidogrel Bisulfate 75 MG Tablet PO (08:49)
--- NOTE | 2022-09-05 10:50 | CT_ITS ---
EXAM: CT HEAD WITHOUT INTRAVENOUS CONTRAST CLINICAL INDICATION: Confusion. TECHNIQUE: Multiple axial images were obtained of the head without intravenous contrast. This CT exam was performed using one or more of the following dose reduction techniques: automated exposure control, adjustment of the mA and/or kV according to patient size, and/or use of iterative reconstruction technique. RADIATION DOSE: CTDIvol = 44.99 mGy, DLP = 796.11 mGy-cm COMPARISON: CT head without contrast 01/07/2021. FINDINGS: BRAIN AND EXTRA-AXIAL SPACES: Unremarkable. No intra- or extra-axial hemorrhage. No evidence of acute infarct. No intracranial mass or mass effect. There is preservation of the posey/white matter interface. Posterior fossa structures are unremarkable. Ventricles are appropriate for age. No hydrocephalus. Basal cisterns are patent. BONES/JOINTS: Unremarkable. No discrete lytic or blastic abnormalities. SINUSES: Persistent minimal air-fluid level in the right and left sphenoid sinuses. Normal remaining paranasal sinuses. MASTOID AIR CELLS: Unremarkable. Clear. ORBITS: Visualized globes, extraocular muscles, optic nerves and retrobulbar fat appear unremarkable. CT/Brain/Head without Contrast IMPRESSION: Small air-fluid levels in the right and left sphenoid sinuses suspicious for acute isolated sphenoid sinusitis. This was present previously but no sclerotic wall thickening to suggest chronic sinusitis.. Otherwise negative noncontrast CT head scan and unchanged since 01/07/2021. Electronically Signed: Clarke Hammond MD at 11:39 EDT ,
[2022-09-05] MEDS: Lactulose 20 GM/30 ML UDC PO (11:46)
[2022-09-05 12:11] LABS: Bedside Glucose 85 mg/dL (74-106)
--- NOTE | 2022-09-05 12:19 | NURSING ---
insulin pump removed by pt's significant other
--- NOTE | 2022-09-05 12:21 | PN.HOSP_ITS ---
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 I talked to her partner who is here today at the time my examination, I decided to obtain a CT of the brain to rule out any intracranial abnormality such as a bleed or stroke, CT of the brain did not show anything acute, the question of a sinus infection but otherwise the CT was unremarkable. I have decided to give the patient 1 dose of lactulose to see if this makes any difference in her confusion, again I am doubtful that her ammonia level is significant as to causing any confusion. I have decided to stop the patient's oxycodone at this time, I am not absolutely sure the patient is going through any kind of withdrawal. Objective Data Objective Data Vital Signs: Vital Signs Temp Pulse Resp BP Pulse Ox O2 Del Method O2 Flow Rate 98.1 F 70 24 H 123/62 H 94 Nasal Cannula 2 09/05/22 05:15 09/05/22 08:48 09/05/22 06:32 09/05/22 05:15 09/05/22 11:09 09/05/22 10:00 09/05/22 11:09 Oxygen Flow Rate (L/min) 2 Oxygen Delivery Method Nasal Cannula Weight: 96.8 kg Body Mass Index (BMI) 33.4 Intake & Output: Intake and Output for Last 24 Hours 09/03/22 09/04/22 09/05/22 23:59 23:59 23:59 Intake Total 4045 / 4045 4321.67 / 4321.67 1126.66 / 1126.66 Output Total 1000 / 1000 750 / 750 Balance 3045 / 3045 3571.67 / 3571.67 1126.66 / 1126.66 Lab / Micro Data 09/02/22 05:40 09/03/22 05:35 Labs: Laboratory Results - last 24 hr 09/04/22 12:58: POC Glucose 80 09/04/22 17:33: POC Glucose 116 H 09/04/22 22:15: POC Glucose 80 09/05/22 05:44: POC Glucose 76 09/05/22 11:43: POC Glucose 85 Micro: Microbiology 09/01/22 23:40 Stool Enteric Bacteriology - Final 09/01/22 23:40 Stool C. difficile DNA Amplification - Final Radiography Diagnostic Testing: Radiology Impression Brain CT 09/05/22 10:50 IMPRESSION: Small air-fluid levels in the right and left sphenoid sinuses suspicious for acute isolated sphenoid sinusitis. This was present previously but no sclerotic wall thickening to suggest chronic sinusitis.. Otherwise negative noncontrast CT head scan and unchanged since 01/07/2021. Electronically Signed: Clarke Hammond MD at 11:39 EDT , Physical Exam Narrative alert and no apparent distress Constitutional Narrative: Patient is older than her stated age, she exhibits moderate confusion General Appearance: cooperative, well kempt and well developed Orientation / Consciousness: awake HEENT normocephalic, head/scalp atraumatic and moist oral mucous membranes Eyes PERRL, EOMs intact bilaterally and conjunctivae normal Neck supple, no JVD, thyroid normal and no carotid bruits General: trachea midline Resp normal respiratory effort, no retractions, no use of accessory muscles and clear to auscultation bilaterally Auscultation: Negative for rales, rhonchi or wheezes Cardio regular rate, regular rhythm, S1 normal heart sound, S2 normal heart sound, no murmurs, no rub and no gallops GI normal to inspection, nondistended, normoactive bowel sounds, soft to palpation, non-tender and non-distended GI Narrative: Ileostomy is present Extremity no clubbing, cyanosis or edema Skin no rashes or lesions noted General Skin Exam: no breakdown Neuro oriented x3, CN's II-XII intact bilaterally, moves all extremities, no focal mot or deficits and no sensory deficits noted Neuro Narrative: Patient appears confused Sensorium / Orientation: awake and alert Psych Psych Narrative: Patient appears confused, she is exhibiting some hallucinations. 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 Intractable nausea and vomiting with increased ostomy output-I stop the patient's octreotide drip today, patient's nausea and vomiting has resolved at this time, I also placed her on oral Protonix rather than IV Protonix. I informally let gastroenterology know my changes, they were okay with it. #2 type 2 diabetes-continue insulin pump per home regimen with Accu-Cheks with sliding scale insulin per home insulin pump #3 ulcerative colitis-status post proctocolectomy with ileostomy #4 acute kidney injury on an overlay of chronic kidney disease stage IIIb- continue IV fluids, monitor labs #5 Encephalopathy-etiology unclear at this time, again I have decided to give the patient a dose of lactulose to see if that makes any difference in her confusion, I have also decided to stop her programmed oxycodone, patient has been on the Butrans patch for quite a while as an outpatient, I have elected to continue this patch. I discussed this with the patient's significant other, patient will be reevaluated tomorrow. Total clinical time spent by myself addressing the patient's medical issues, reviewing all of her data, and collaborating with patient's care team: 35 minutes Charges/Coding Visit Charges Inpatient E&M: 54838 Subs Hosp L2
[2022-09-05] MEDS: Albuterol 2.5 MG/3 ML VIAL.NEB. INHALATION (13:55)
--- NOTE | 2022-09-05 14:20 | RAD_ITS ---
INDICATION: hypoxia EXAMINATION/TECHNIQUE: X-RAY - XR Chest 1 View COMPARISON: Prior study dated: October 03, 2022 FINDINGS: LINES/DEVICES: None. LUNGS: There is a vague opacity within the right lower lung. No pneumothorax. MEDIASTINUM AND CARDIOVASCULAR STRUCTURES: There are sternotomy wires in place. Cardiac silhouette not enlarged. Central airways and mediastinal contour are unremarkable. BONES AND SOFT TISSUES: Unremarkable. RAD/Chest 1 View (Portable) IMPRESSION: Indeterminate opacity within the right lower lung may be secondary to atelectasis and/or pneumonia. Electronically Signed: Kayla Hanson MD at 15:05 EDT ,
[2022-09-05 14:55] LABS: Absolute Lymphocyte Count 1.41 X10^3/uL (0.83-4.51); Absolute Neutrophil Count 6.3 X10^3/uL (2.0-7.7); Basophil# 0.05 X10^3/uL; Basophil% 0.6 % (0-1); Eosinophil# 0.23 X10^3/uL; Eosinophils% 2.6 % (0-5); Hematocrit 32.5 % (37-47); Hemoglobin 9.8 g/dL (12.0-15.0); Lymphocyte # 1.41 X10^3/ul (0.83-4.51); Lymphocyte % 15.8 % (19-41); Mean Corp Hgb Conc 30.2 g/dL (32-36); Mean Corpuscular Hgb 27.6 pg (27.0-32.0); Mean Corpuscular Volume 91.5 fL (81-99); Mean Platelet Vol. 12.1 fl (6.2-12.0); Monocyte# 0.72 X10^3/uL; Monocyte% 8.1 % (0-10); NRBC Flagged by Analyzer 0.2 % (0-5); Neutrophil # 6.31 X10^3/uL (2.7-7.7); Neutrophil % 70.9 % (47-70); Platelet Count 159 K/mm3 (150-450); RBC Distribution Width CV 16.2 % (11.6-14.6); RBC Distribution Width SD 54.4 fl (35.1-43.9); Red Blood Count 3.55 M/mm3 (4.2-5.4); White Blood Count 8.9 K/mm3 (4.4-11.0)
[2022-09-05 15:05] LABS: ALB/GLOB Ratio 0.7 RATIO (0.9-2.4); AST(SGOT) 20 U/L (15-37); Alanine Aminotransfer ALT/SGPT 17 U/L (13-56); Albumin, Serum 2.4 g/dL (3.2-5.0); Alkaline Phosphatase 103 U/L (45-117); Anion Gap 6 (5-15); BUN 17 mg/dL (7-18); BUN/Creat Ratio 9.9 RATIO (10-20); Calcium,Total 8.6 mg/dL (8.5-10.1); Chloride 115 mmol/L (98-107); Creatinine, Serum 1.71 mg/dL (0.55-1.02); EST Glomerular Filtration Rate 32 mL/min (>60); Est Glom Filt Rate - Afr Amer 39 mL/min (>60); Estimated Creatinine Clearance 32.32 ml/min; Globulin 3.6 g/dL (2.2-4.2); Glucose 145 mg/dL (74-106); Potassium 4.5 mmol/L (3.5-5.1); Sodium Level 139 mmol/L (136-145)
[2022-09-05] MEDS: Insulin Lispro 100 UNIT/ML INSULN.PEN SC ×2 (16:24→21:53)
[2022-09-05 16:43] LABS: Bedside Glucose 157 mg/dL (74-106)
[2022-09-05] MEDS: Ipratropium/Albuterol Sulfate 3 ML AMPUL.NEB INHALATION (20:06)
[2022-09-05] MEDS: Ondansetron 4 MG/2 ML Vial IV (20:38)
--- NOTE | 2022-09-05 21:45 | CPS ---
Patient refused med after medication was opened.
[2022-09-05] MEDS: Pantoprazole Sodium 40 MG Tablet PO (21:49)
[2022-09-05] MEDS: traZODone 50 MG Tablet PO (21:51)
[2022-09-05] MEDS: Atorvastatin Calcium 80 MG Tablet PO (21:52)
[2022-09-06] VITALS (14 sets, daily range): BP systolic 107–156; BP diastolic 50–85; PULSE 64–89; RESP 16–24; TEMP 36.6–37.3; O2SAT 88–96; BMI 34.3
[2022-09-06 01:26] LABS: Bedside Glucose 215 mg/dL (74-106)
[2022-09-06] MEDS: 0.9% Normal Saline 1,000 ML 100 ML IV ×3 (03:22→22:09)
[2022-09-06] MEDS: Insulin Lispro 100 UNIT/ML INSULN.PEN SC ×4 (06:44→22:03)
[2022-09-06] MEDS: Dicyclomine 10 MG Capsule 20 MG PO ×3 (06:45→16:53)
[2022-09-06] MEDS: Cholestyramine/Sucrose 4 GM/PACKET PO ×2 (06:45→16:53)
[2022-09-06] MEDS: Ipratropium/Albuterol Sulfate 3 ML AMPUL.NEB INHALATION ×3 (07:05→19:41)
[2022-09-06] MEDS: Budesonide Respules 0.5 MG/2 ML AMPUL.NEB. INHALATION ×2 (07:05→19:41)
[2022-09-06 07:23] LABS: Bedside Glucose 179 mg/dL (74-106)
[2022-09-06] MEDS: Metoprolol Tartrate 25 MG Tablet 75 MG PO ×2 (10:07→21:56)
[2022-09-06] MEDS: Isosorbide DN 30 MG Tablet PO ×2 (10:07→21:56)
[2022-09-06] MEDS: Pantoprazole Sodium 40 MG Tablet PO ×2 (10:07→21:55)
[2022-09-06] MEDS: Aspirin E.C. 81 MG Tablet PO (10:07)
[2022-09-06] MEDS: Ursodiol 250 MG Tablet PO ×2 (10:07→21:56)
[2022-09-06] MEDS: Clopidogrel Bisulfate 75 MG Tablet PO (10:07)
[2022-09-06] MEDS: Psyllium 1 PACKET PO ×2 (10:08→21:55)
[2022-09-06] MEDS: Heparin Injection (Vial) 5,000 UNIT/ML VIAL 5000 UNIT SC ×2 (10:08→21:55)
[2022-09-06] MEDS: DULoxetine Hcl 30 MG Capsule 90 MG PO (10:08)
[2022-09-06] MEDS: Acetaminophen 325 MG Tablet 650 MG PO (10:12)
[2022-09-06] MEDS: QUEtiapine 25 MG Tablet 12.5 MG PO ×2 (10:25→21:58)
[2022-09-06 13:25] LABS: Bedside Glucose 205 mg/dL (74-106)
[2022-09-06 13:27] LABS: Allen Test Positive; Base Excess -6 mmol/L (-2 to +2); Blood Gas Specimen Type ART; O2 Delivery Device Cannula; PO2 113 mmHG (75-100); SITE R Radial; SO2 98 % (95-99); Total Carbon Dioxide 20 mmol/L; pCO2 31.9 mmHg (35-45); pH 7.38 (7.35-7.45)
--- NOTE | 2022-09-06 15:08 | PN.HOSP_ITS ---
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 Patient is still confused but she does not appear as agitated as yesterday, I obtained a blood gas which showed the patient's PCO2 was not elevated. Patient's significant other gives me a history over the last several months of the patient becoming more confused at home and not taking care of herself or cleaning her house. I am unsure whether the patient has an undiagnosed dementia issue. Objective Data Objective Data Vital Signs: Vital Signs Temp Pulse Resp BP Pulse Ox O2 Del Method O2 Flow Rate 98.0 F 88 20 H 126/50 H 88 Room Air 2 09/06/22 09:58 09/06/22 13:56 09/06/22 13:56 09/06/22 10:07 09/06/22 14:00 09/06/22 14:00 09/06/22 12:06 Oxygen Flow Rate (L/min) 2 Oxygen Delivery Method Room Air Weight: 99.4 kg Body Mass Index (BMI) 34.3 Intake & Output: Intake and Output for Last 24 Hours 09/04/22 09/05/22 09/06/22 23:59 23:59 23:59 Intake Total 4321.67 / 4321.67 2094.99 / 2094.99 1928.33 / 1928.33 Output Total 750 / 750 400 / 400 Balance 3571.67 / 3571.67 2094.99 / 1694.99 1528.33 / 1528.33 Lab / Micro Data 09/05/22 14:40 09/05/22 14:40 Labs: Laboratory Results - last 24 hr 09/05/22 16:22: POC Glucose 157 H 09/05/22 21:47: POC Glucose 215 H 09/06/22 06:43: POC Glucose 179 H 09/06/22 13:03: POC Glucose 205 H Micro: Microbiology 09/01/22 23:40 Stool Enteric Bacteriology - Final 09/01/22 23:40 Stool C. difficile DNA Amplification - Final ABG Data ABG results: ABG 09/06/22 13:23 Specimen Type ART Sample Site R Radial pH 7.38 Bicarbonate Actual 19.0 L Total CO2 20 Base Excess -6 L O2 Saturation 98 ABG pCO2 31.9 L ABG pO2 113 H Garrick Test Positive O2 Delivery Device Cannula Liter Flow 3.0 Physical Exam Narrative alert and no apparent distress Constitutional Narrative: Patient is older than her stated age, she exhibits moderate confusion General Appearance: cooperative, well kempt and well developed Orientation / Consciousness: awake HEENT normocephalic, head/scalp atraumatic and moist oral mucous membranes Eyes PERRL, EOMs intact bilaterally and conjunctivae normal Neck supple, no JVD, thyroid normal and no carotid bruits General: trachea midline Resp normal respiratory effort, no retractions, no use of accessory muscles and clear to auscultation bilaterally Auscultation: Negative for rales, rhonchi or wheezes Cardio regular rate, regular rhythm, S1 normal heart sound, S2 normal heart sound, no murmurs, no rub and no gallops GI normal to inspection, nondistended, normoactive bowel sounds, soft to palpation, non-tender and non-distended GI Narrative: Ileostomy is present Extremity no clubbing, cyanosis or edema Skin no rashes or lesions noted General Skin Exam: no breakdown Neuro oriented x3, CN's II-XII intact bilaterally, moves all extremities, no focal motor deficits and no sensory deficits noted Neuro Narrative: Patient appears confused Sensorium / Orientation: awake and alert Psych Psych Narrative: Patient appears confused, she is exhibiting some hallucinations. 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 Intractable nausea and vomiting with increased ostomy output-made the decision to stop the patient's IV fluids today #2 type 2 diabetes-continue insulin pump per home regimen with Accu-Cheks with sliding scale insulin per home insulin pump #3 ulcerative colitis-status post proctocolectomy with ileostomy #4 acute kidney injury on an overlay of chronic kidney disease stage IIIb, monitor labs as needed, patient's creatinine yesterday appears to be near her baseline. #5 Encephalopathy-etiology unclear at this time, I have decided to place the patient on a small amount of Seroquel twice a day to see if the patient's sleep patterns are off, again after having discussion with the patient's significant other today, I found that the patient had episodes of confusion at home over the past several months and what sounds like a decline in ADLs and executive functi oning, I am suspicious she may have early dementia. #6 acute debility-PT and OT are seeing the patient, she will need temporary placement in a senior care facility for rehab services. Total clinical time spent by myself addressing the patient's medical issues, reviewing all of her data, and collaborating with patient's care team: 35 minutes Charges/Coding Visit Charges Inpatient E&M: 20167 Subs Hosp L2
[2022-09-06 17:42] LABS: Bedside Glucose 170 mg/dL (74-106)
[2022-09-06 19:05] LABS: Thyroid Stim Hormone (TSH) 0.33 uIU/mL (0.358-3.74)
[2022-09-06] MEDS: traZODone 50 MG Tablet PO (21:55)
[2022-09-06] MEDS: Atorvastatin Calcium 80 MG Tablet PO (21:56)
[2022-09-06 23:31] LABS: Bedside Glucose 177 mg/dL (74-106)
[2022-09-07] VITALS (14 sets, daily range): BP systolic 107–169; BP diastolic 68–90; PULSE 67–97; RESP 16–20; TEMP 36.6–37.3; O2SAT 2–98; BMI 34.9
[2022-09-07] MEDS: Insulin Lispro 100 UNIT/ML INSULN.PEN SC ×4 (06:15→21:13)
[2022-09-07] MEDS: Dicyclomine 10 MG Capsule 20 MG PO ×3 (06:15→16:29)
[2022-09-07] MEDS: Cholestyramine/Sucrose 4 GM/PACKET PO ×2 (06:15→16:30)
[2022-09-07] MEDS: 0.9% Normal Saline 1,000 ML 100 ML IV ×2 (06:21→16:28)
[2022-09-07 06:59] LABS: Bedside Glucose 179 mg/dL (74-106)
[2022-09-07] MEDS: Budesonide Respules 0.5 MG/2 ML AMPUL.NEB. INHALATION (07:46)
[2022-09-07] MEDS: Ipratropium/Albuterol Sulfate 3 ML AMPUL.NEB INHALATION ×3 (07:46→19:51)
--- NOTE | 2022-09-07 08:36 | WOUNDNOTE ---
Was asked to see patient for ostomy care. assessed the ostomy appliance. there is a small amount of formed brown stool in the appliance. the current appliance is just taped in place. removed at this time. stoma is well budded and beefy red. peristomal skin is intact. cleansed skin with warm water. pat dry. applied a new 2 piece flat Prole appliance. pt very confused at this time. fos not appear to be messing with the appliance. will monitor.
[2022-09-07] MEDS: DULoxetine Hcl 30 MG Capsule 90 MG PO (08:48)
[2022-09-07] MEDS: Aspirin E.C. 81 MG Tablet PO (08:48)
[2022-09-07] MEDS: Heparin Injection (Vial) 5,000 UNIT/ML VIAL 5000 UNIT SC ×2 (08:49→21:12)
[2022-09-07] MEDS: Metoprolol Tartrate 25 MG Tablet 75 MG PO ×2 (08:49→21:12)
[2022-09-07] MEDS: Isosorbide DN 30 MG Tablet PO ×2 (08:49→21:14)
[2022-09-07 08:50] LABS: Absolute Lymphocyte Count 1.65 X10^3/uL (0.83-4.51); Absolute Neutrophil Count 5.5 X10^3/uL (2.0-7.7); Basophil# 0.05 X10^3/uL; Basophil% 0.6 % (0-1); Eosinophil# 0.27 X10^3/uL; Eosinophils% 3.2 % (0-5); Hematocrit 29.6 % (37-47); Hemoglobin 9.7 g/dL (12.0-15.0); Lymphocyte # 1.65 X10^3/ul (0.83-4.51); Lymphocyte % 19.4 % (19-41); Mean Corp Hgb Conc 32.8 g/dL (32-36); Mean Corpuscular Hgb 28.7 pg (27.0-32.0); Mean Corpuscular Volume 87.6 fL (81-99); Mean Platelet Vol. 11.6 fl (6.2-12.0); Monocyte# 0.67 X10^3/uL; Monocyte% 7.9 % (0-10); NRBC Flagged by Analyzer 0.4 % (0-5); Neutrophil # 5.45 X10^3/uL (2.7-7.7); Neutrophil % 64.2 % (47-70); Platelet Count 174 K/mm3 (150-450); RBC Distribution Width CV 16.2 % (11.6-14.6); RBC Distribution Width SD 51.5 fl (35.1-43.9); Red Blood Count 3.38 M/mm3 (4.2-5.4); White Blood Count 8.5 K/mm3 (4.4-11.0)
[2022-09-07] MEDS: Pantoprazole Sodium 40 MG Tablet PO ×2 (08:50→21:14)
[2022-09-07] MEDS: QUEtiapine 25 MG Tablet 12.5 MG PO (08:50)
[2022-09-07] MEDS: Psyllium 1 PACKET PO ×2 (08:50→21:13)
[2022-09-07] MEDS: Clopidogrel Bisulfate 75 MG Tablet PO (08:50)
[2022-09-07] MEDS: Ursodiol 250 MG Tablet PO ×2 (08:51→21:15)
--- NOTE | 2022-09-07 09:11 | WOUNDNOTE ---
Talked with patient's significant other per request. Azucena was asking about the ostomy supplies since she has not had to change one for a while. this nurse had changed the appliance this am and applied a 2 piece flat James appliance. Plan is for patient to go to [facility] at discharge. two appliances will be sent with patient until supplies can be ordered there. Azucena feels the stoma is slightly more swollen than normal. appears beefy red, moist, and well budded.
[2022-09-07 09:22] LABS: Anion Gap 4 (5-15); BUN 14 mg/dL (7-18); BUN/Creat Ratio 10.1 RATIO (10-20); Calcium,Total 8.2 mg/dL (8.5-10.1); Chloride 115 mmol/L (98-107); Creatinine, Serum 1.38 mg/dL (0.55-1.02); EST Glomerular Filtration Rate 41 mL/min (>60); Est Glom Filt Rate - Afr Amer 50 mL/min (>60); Estimated Creatinine Clearance 40.05 ml/min; Glucose 162 mg/dL (74-106); Potassium 3.8 mmol/L (3.5-5.1); Sodium Level 141 mmol/L (136-145)
[2022-09-07 11:53] LABS: Bedside Glucose 171 mg/dL (74-106)
--- NOTE | 2022-09-07 13:56 | PCM.PN.HOSP ---
Subjective Subjective Doing well, did get much sleep overnight. Little bit groggy this morning Objective Data Objective Data Vital Signs: Vital Signs Temp Pulse Resp BP Pulse Ox O2 Del Method O2 Flow Rate 98.0 F 85 20 H 145/85 H 2 Nasal Cannula 2 09/07/22 13:50 09/07/22 13:50 09/07/22 13:50 09/07/22 13:50 09/07/22 13:50 09/07/22 13:50 09/07/22 13:45 Oxygen Flow Rate (L/min) 2 Oxygen Delivery Method Nasal Cannula Weight: 222 lb 14.197 oz Body Mass Index (BMI) 34.9 Intake & Output: Intake and Output for Last 24 Hours 09/06/22 09/07/22 09/08/22 03:59 03:59 03:59 Intake Total 2963.32 / 2963.32 2700 / 2700 1465 / 1465 Output Total 400 / 400 250 / 250 Balance 2563.32 / 2563.32 2450 / 2450 1465 / 1465 Lab / Micro Data 09/07/22 08:38 09/07/22 08:38 Labs: Laboratory Results - last 24 hr 09/05/22 14:40: TSH 0.33 L 09/06/22 16:52: POC Glucose 170 H 09/06/22 21:45: POC Glucose 177 H 09/07/22 06:14: POC Glucose 179 H 09/07/22 08:38: WBC 8.5, RBC 3.38 L, Hgb 9.7 L, Hct 29.6 L, MCV 87.6, MCH 28.7, MCHC 32.8 D, RDW Std Deviation 51.5 H, RDW Coeff of Jan 16.2 H, Plt Count 174, MPV 11.6, Immature Gran % (Auto) 4.700 H, Neut % (Auto) 64.2, Lymph % (Auto) 19.4, [place] % (Auto) 7.9, Eos % (Auto) 3.2, Baso % (Auto) 0.6, Absolute Neuts (auto) 5.5, Absolute Lymphs (auto) 1.65, Nucleated RBC % 0.4, Sodium 141, Potassium 3.8, Chloride 115 H, Carbon Dioxide 22.0, Anion Gap 4 L, BUN 14, Creatinine 1.38 H, Estim Creat Clear Calc 40.05, Est GFR (MDRD) Af Amer 50 L, Est GFR (MDRD) Non-Af 41 L, BUN/Creatinine Ratio 10.1, Glucose 162 H, Calcium 8.2 L 09/07/22 11:31: POC Glucose 171 H Micro: Microbiology 09/01/22 23:40 Stool Enteric Bacteriology - Final 09/01/22 23:40 Stool C. difficile DNA Amplification - Final Physical Exam Narrative General: Alert, cooperative, No apparent distress HEENT: Atraumatic, PERRLA, EOMI, Normocephalic Oral: Moist Mucosa Neck: Supple, No JVD Lungs: Diminished, Normal air movement, No rhonchi, No wheeze, No rales Cardiovascular: Regular rate, Regular Rhythm, Normal S1, Normal S2, No murmurs Abdomen: Soft, Non Tender, Non-Distended, No Hepato-splenomegaly, ostomy with output Extremities: No edema, Capillary Refill Less than 3 Seconds Skin: No rashes, No breakdown Musculoskeletal: No Tenderness to Palpation of Joints or Extremities Neurological: Cranial nerves II-XII grossly intact, Motor Exam 5/5 strength throughout, Sensory exam intact to light touch and pain Psych/Mental Status: Flat Assessment & Plan Assessment/Plan (1) Nausea & vomiting: (2) High output ileostomy: (3) DM2 (diabetes mellitus, type 2): QUALIFIERS: Diabetes mellitus complication status: with hyperglycemia Diabetes mellitus director long term care insulin use: with director long term care use Qualified Code(s): E11.65 - Type 2 diabetes mellitus with hyperglycemia; 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 Intractable nausea and vomiting with increased ostomy output and short gut syndrome/RALPH/encephalopathy ?Continue with IV fluids ? Appreciate gastroenterology's assistance ? We will continue with medications to try to slow down her ostomy output ? She had her ostomy secondary to ulcerative colitis ? Renal functions improving we will continue to monitor ? The etiology of her encephalopathy is unclear whether it is metabolic or toxic, will continue with Seroquel and increase the dose to nightly ? PT/OT for evaluation 2. HTN/HLD ? Blood pressures are stable ? With her home medications 3. DM2 ? Blood sugars are stable, continue with her insulin pump ? Accu-Cheks ACHS ? Sliding scale insulin ? We will monitor and make adjustments as necessary 4. GERD ? Stable ? Continue with PPI DVT: Heparin Charges/Coding Visit Charges Inpatient E&M: 33058 Subs Hosp L2
[2022-09-07 16:43] LABS: Bedside Glucose 172 mg/dL (74-106)
[2022-09-07] MEDS: Atorvastatin Calcium 80 MG Tablet PO (21:14)
[2022-09-07] MEDS: traZODone 50 MG Tablet PO (21:15)
[2022-09-07] MEDS: QUEtiapine 25 MG Tablet PO (21:22)
[2022-09-07 22:08] LABS: Bedside Glucose 187 mg/dL (74-106)
[2022-09-08] VITALS (11 sets, daily range): BP systolic 143–163; BP diastolic 60–85; PULSE 62–82; RESP 16–18; TEMP 36.8–37.2; O2SAT 92–98; BMI 34.4
[2022-09-08] MEDS: Ipratropium/Albuterol Sulfate 3 ML AMPUL.NEB INHALATION ×4 (00:58→19:22)
[2022-09-08] MEDS: 0.9% Normal Saline 1,000 ML 100 ML IV ×3 (01:47→22:05)
[2022-09-08] MEDS: Dicyclomine 10 MG Capsule 20 MG PO ×3 (06:12→16:52)
[2022-09-08] MEDS: Cholestyramine/Sucrose 4 GM/PACKET PO ×2 (06:12→16:53)
[2022-09-08] MEDS: Insulin Lispro 100 UNIT/ML INSULN.PEN SC ×4 (06:18→22:22)
[2022-09-08 06:40] LABS: Bedside Glucose 158 mg/dL (74-106)
[2022-09-08] MEDS: Budesonide Respules 0.5 MG/2 ML AMPUL.NEB. INHALATION ×2 (07:12→19:22)
--- NOTE | 2022-09-08 09:16 | PCM.PN.HOSP ---
Subjective Subjective Much more alert and back to baseline Objective Data Objective Data Vital Signs: Vital Signs Temp Pulse Resp BP Pulse Ox O2 Del Method O2 Flow Rate 99.0 F 74 18 155/72 H 94 Room Air 1 09/08/22 03:18 09/08/22 07:14 09/08/22 07:14 09/08/22 03:18 09/08/22 07:14 09/08/22 07:14 09/08/22 03:18 Oxygen Flow Rate (L/min) 1 Oxygen Delivery Method Room Air Weight: 220 lb 3.869 oz Body Mass Index (BMI) 34.4 Intake & Output: Intake and Output for Last 24 Hours 09/07/22 09/08/22 09/09/22 03:59 03:59 03:59 Intake Total 2700 / 2700 4070.67 / 4070.67 240 / 240 Output Total 250 / 250 150 / 150 Balance 2450 / 2450 3920.67 / 3920.67 240 / 240 Lab / Micro Data 09/07/22 08:38 09/07/22 08:38 Labs: Laboratory Results - last 24 hr 09/07/22 08:38: Sodium 141, Potassium 3.8, Chloride 115 H, Carbon Dioxide 22.0, Anion Gap 4 L, BUN 14, Creatinine 1.38 H, Estim Creat Clear Calc 40.05, Est GFR (MDRD) Af Amer 50 L, Est GFR (MDRD) Non-Af 41 L, BUN/Creatinine Ratio 10.1, Glucose 162 H, Calcium 8.2 L 09/07/22 11:31: POC Glucose 171 H 09/07/22 16:26: POC Glucose 172 H 09/07/22 21:06: POC Glucose 187 H 09/08/22 06:18: POC Glucose 158 H Micro: Microbiology 09/01/22 23:40 Stool Enteric Bacteriology - Final 09/01/22 23:40 Stool C. difficile DNA Amplification - Final Physical Exam Narrative General: Alert, alert and oriented x3, cooperative, No apparent distress HEENT: Atraumatic, PERRLA, EOMI, Normocephalic Oral: Moist Mucosa Neck: Supple, No JVD Lungs: Diminished, Normal air movement, No rhonchi, No wheeze, No rales Cardiovascular: Regular rate, Regular Rhythm, Normal S1, Normal S2, No murmurs Abdomen: Soft, Non Tender, Non-Distended, No Hepato-splenomegaly, ostomy with output Extremities: No edema, Capillary Refill Less than 3 Seconds Skin: No rashes, No breakdown Musculoskeletal: No Tenderness to Palpation of Joints or Extremities Neurological: Cranial nerves II-XII grossly intact, Motor Exam 5/5 strength throughout, Sensory exam intact to light touch and pain Psych/Mental Status: Normal affect Const alert, oriented x3, no apparent distress and average body habitus Constitutional Narrative: Patient is older than her stated age, she exhibits moderate confusion General Appearance: cooperative, well kempt and well developed Orientation / Consciousness: awake, oriented to person, oriented to place and oriented to time HEENT normocephalic, head/scalp atraumatic and moist oral mucous membranes Eyes PERRL, EOMs intact bilaterally and conjunctivae normal Neck supple, no JVD, thyroid normal and no carotid bruits General: trachea midline Resp normal respiratory effort, no retractions, no use of accessory muscles and clear to auscultation bilaterally Auscultation: Negative for rales, rhonchi or wheezes Cardio regular rate, regular rhythm, S1 normal heart sound, S2 normal heart sound, no murmurs, no rub and no gallops GI normal to inspection, nondistended, normoactive bowel sounds, soft to palpation, non-tender and non-distended GI Narrative: Ileostomy is present Extremity no clubbing, cyanosis or edema Skin no rashes or lesions noted General Skin Exam: no breakdown Neuro oriented x3, CN's II-XII intact bilaterally, moves all extremities, no focal motor deficits and no sensory deficits noted Neuro Narrative: Patient appears confused Sensorium / Orientation: awake, alert, oriented to person, oriented to place and oriented to time Speech: speech normal Psych affect normal Psych Narrative: Patient appears confused Assessment & Plan Assessment/Plan (1) Nausea & vomiting: (2) High output ileostomy: (3) DM2 (diabetes mellitus, type 2): QUALIFIERS: Diabetes mellitus complication status: with hyperglycemia 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 Intractable nausea and vomiting with increased ostomy output and short gut syndrome/RALPH/metabolic and toxic encephalopathy ?Continue with IV fluids ? Appreciate gastroenterology's assistance ? We will continue with medications to try to slow down her ostomy output ? She had her ostomy secondary to ulcerative colitis ? Renal functions improving we will continue to monitor ? She is potentially withdrawing from her buprenorphine and she had renal failure both of which could be playing into her encephalopathy consistent with metabolic and toxic sources, will continue with Seroquel at night ? PT/OT for evaluation 2. HTN/HLD ? Blood pressures are stable ? With her home medications 3. DM2 ? Blood sugars are stable, continue with her insulin pump ? Accu-Cheks ACHS ? Sliding scale insulin ? We will monitor and make adjustments as necessary 4. GERD ? Stable ? Continue with PPI DVT: Heparin Charges/Coding Visit Charges Inpatient E&M: 88806 Subs Hosp L2
[2022-09-08] MEDS: Heparin Injection (Vial) 5,000 UNIT/ML VIAL 5000 UNIT SC ×2 (10:06→22:19)
[2022-09-08] MEDS: Ursodiol 250 MG Tablet PO ×2 (10:07→22:19)
[2022-09-08] MEDS: Metoprolol Tartrate 25 MG Tablet 75 MG PO ×2 (10:07→22:19)
[2022-09-08] MEDS: Psyllium 1 PACKET PO ×2 (10:07→22:20)
[2022-09-08] MEDS: Pantoprazole Sodium 40 MG Tablet PO ×2 (10:07→22:18)
[2022-09-08] MEDS: Isosorbide DN 30 MG Tablet PO ×2 (10:08→22:19)
[2022-09-08] MEDS: DULoxetine Hcl 30 MG Capsule 90 MG PO (10:08)
[2022-09-08] MEDS: Clopidogrel Bisulfate 75 MG Tablet PO (10:08)
[2022-09-08] MEDS: Aspirin E.C. 81 MG Tablet PO (10:08)
[2022-09-08] MEDS: Acetaminophen 325 MG Tablet 650 MG PO ×2 (10:15→16:53)
[2022-09-08 12:24] LABS: Bedside Glucose 185 mg/dL (74-106)
[2022-09-08] MEDS: ALPRAZolam 0.25 MG Tablet PO (16:53)
[2022-09-08 17:17] LABS: Bedside Glucose 213 mg/dL (74-106)
[2022-09-08] MEDS: traZODone 50 MG Tablet PO (22:18)
[2022-09-08] MEDS: QUEtiapine 25 MG Tablet PO (22:19)
[2022-09-08] MEDS: Atorvastatin Calcium 80 MG Tablet PO (22:19)
[2022-09-08 22:44] LABS: Bedside Glucose 239 mg/dL (74-106)
[2022-09-09] VITALS (7 sets, daily range): BP systolic 140–174; BP diastolic 59–73; PULSE 69–82; RESP 16–18; TEMP 36.8–37; O2SAT 93–96; BMI 33.5
[2022-09-09] MEDS: Ipratropium/Albuterol Sulfate 3 ML AMPUL.NEB INHALATION ×2 (00:30→14:11)
[2022-09-09] MEDS: Dicyclomine 10 MG Capsule 20 MG PO ×2 (05:45→11:26)
[2022-09-09] MEDS: Cholestyramine/Sucrose 4 GM/PACKET PO (05:45)
[2022-09-09] MEDS: 0.9% Normal Saline 1,000 ML 100 ML IV (05:46)
[2022-09-09 06:07] LABS: Hematocrit 34.8 % (37-47); Hemoglobin 10.8 g/dL (12.0-15.0); Mean Corpuscular Hgb 28.1 pg (27.0-32.0); Mean Corpuscular Volume 90.6 fL (81-99); POSITIVE COUNT YES; POSITIVE MORPHOLOGY YES; Platelet Count 195 K/mm3 (150-450); RBC Distribution Width CV 16.2 % (11.6-14.6); Red Blood Count 3.84 M/mm3 (4.2-5.4); White Blood Count 7.2 K/mm3 (4.4-11.0)
[2022-09-09 06:17] LABS: Differential Indicated MANUAL DIFF
[2022-09-09 06:41] LABS: Anion Gap 6 (5-15); BUN 9 mg/dL (7-18); BUN/Creat Ratio 6.7 RATIO (10-20); Calcium,Total 8.3 mg/dL (8.5-10.1); Chloride 106 mmol/L (98-107); Creatinine, Serum 1.35 mg/dL (0.55-1.02); EST Glomerular Filtration Rate 42 mL/min (>60); Est Glom Filt Rate - Afr Amer 51 mL/min (>60); Estimated Creatinine Clearance 40.94 ml/min; Glucose 216 mg/dL (74-106); Potassium 2.8 mmol/L (3.5-5.1); Sodium Level 140 mmol/L (136-145)
[2022-09-09 06:47] LABS: Metamyelocyte 4 % (0-1); Myelocyte 2 % (0-0); Neutrophil-Band 6 % (0-5); Neutrophil-Segmented 56 % (47-70); Total Cells Counted 100 (MANUAL DIFF)
[2022-09-09 06:48] LABS: Eosinophil 6 % (0-5); Lymphocyte 23 % (19-41); Monocyte 3 % (0-10); Platelet Estimate ADEQUATE (ADEQ)
[2022-09-09 06:49] LABS: Absolute Neutrophil Count 4.5 X10^3/uL (2.0-7.7); Anisocytosis RARE; Hypochromasia RARE; Microcytosis RARE; Neutrophil # 4.47 X10^3/uL (2.7-7.7)
[2022-09-09 06:50] LABS: Absolute Lymphocyte Count 1.66 X10^3/uL (0.83-4.51); Lymphocyte # 1.66 X10^3/ul (0.83-4.51)
[2022-09-09] MEDS: Insulin Lispro 100 UNIT/ML INSULN.PEN SC ×2 (06:56→11:26)
[2022-09-09 07:15] LABS: Bedside Glucose 230 mg/dL (74-106)
[2022-09-09 07:43] LABS: Magnesium 1.1 mg/dL (1.6-2.6); Phosphorus 2.6 mg/dL (2.5-4.9)
--- NOTE | 2022-09-09 08:38 | CASEMGMT ---
Discharge Planning Updates sent to [facility]. Asked that pre-cert be submitted. Tari Samuels, Discharge Planning Asst.
--- NOTE | 2022-09-09 09:09 | PCM.PN.HOSP ---
Subjective Subjective Doing well, confusion is resolved. No issues overnight Objective Data Objective Data Vital Signs: Vital Signs Temp Pulse Resp BP Pulse Ox O2 Del Method O2 Flow Rate 98.2 F 82 16 140/59 H 94 Room Air 1 09/09/22 03:05 09/09/22 03:05 09/09/22 03:05 09/09/22 03:05 09/09/22 03:05 09/09/22 08:43 09/08/22 03:18 Oxygen Flow Rate (L/min) 1 Oxygen Delivery Method Room Air Weight: 214 lb 1.102 oz Body Mass Index (BMI) 33.5 Intake & Output: Intake and Output for Last 24 Hours 09/08/22 09/09/22 09/10/22 03:59 03:59 03:59 Intake Total 4070.67 / 4070.67 2780 / 2780 768.33 / 768.33 Output Total 150 / 150 200 / 200 Balance 3920.67 / 3920.67 2580 / 2580 768.33 / 768.33 Lab / Micro Data 09/09/22 05:10 09/09/22 05:10 Labs: Laboratory Results - last 24 hr 09/08/22 12:03: POC Glucose 185 H 09/08/22 16:49: POC Glucose 213 H 09/08/22 22:22: POC Glucose 239 H 09/09/22 05:10: WBC 7.2, RBC 3.84 L, Hgb 10.8 L, Hct 34.8 L, MCV 90.6, MCH 28.1, MCHC 31.0 L D, RDW Std Deviation 53.0 H, RDW Coeff of Jan 16.2 H, Plt Count 195, MPV 12.0, Neut % (Auto) Not Reportable, Absolute Neuts (auto) 4.5, Absolute Lymphs (auto) 1.66, Total Counted 100, Neutrophils % (Manual) 56, Band Neutrophils % 6 H, Lymphocytes % (Manual) 23, Monocytes % (Manual) 3, Eosinophils % (Manual) 6 H, Metamyelocytes % 4 H, Myelocytes % 2 H, Diff Path Review May foll, Platelet Estimate ADEQUATE, Hypochromasia RARE, Anisocytosis RARE, Microcytosis RARE, Sodium 140, Potassium 2.8 L, Chloride 106, Carbon Dioxide 28.0, Anion Gap 6, BUN 9, Creatinine 1.35 H, Estim Creat Clear Calc 40.94, Est GFR (MDRD) Af Amer 51 L, Est GFR (MDRD) Non-Af 42 L, BUN/Creatinine Ratio 6.7 L, Glucose 216 H, Calcium 8.3 L, Phosphorus 2.6, Magnesium 1.1 L 09/09/22 06:56: POC Glucose 230 H Micro: Microbiology 09/01/22 23:40 Stool Enteric Bacteriology - Final 09/01/22 23:40 Stool C. difficile DNA Amplification - Final Physical Exam Narrative General: Alert, alert and oriented x3, cooperative, No apparent distress HEENT: Atraumatic, PERRLA, EOMI, Normocephalic Oral: Moist Mucosa Neck: Supple, No JVD Lungs: Diminished, Normal air movement, No rhonchi, No wheeze, No rales Cardiovascular: Regular rate, Regular Rhythm, Normal S1, Normal S2, No murmurs Abdomen: Soft, Non Tender, Non-Distended, No Hepato-splenomegaly, ostomy with output Extremities: No edema, Capillary Refill Less than 3 Seconds Skin: No rashes, No breakdown Musculoskeletal: No Tenderness to Palpation of Joints or Extremities Neurological: Cranial nerves II-XII grossly intact, Motor Exam 5/5 strength throughout, Sensory exam intact to light touch and pain Psych/Mental Status: Normal affect Assessment & Plan Assessment/Plan (1) Nausea & vomiting: (2) High output ileostomy: (3) DM2 (diabetes mellitus, type 2): QUALIFIERS: Diabetes mellitus complication status: with hyperglycemia Diabetes mellitus assisted insulin use: with awning craftsperson use Qualified Code(s): E11.65 - Type 2 diabetes mellitus with hyperglycemia; Z79.4 - snf (current) use of insulin PLAN: Plan 1. Intractable nausea and vomiting with increased ostomy output and short gut syndrome/RALPH/metabolic and toxic encephalopathy ?Continue with IV fluids ? Appreciate gastroenterology's assistance ? We will continue with medications to try to slow down her ostomy output ? She had her ostomy secondary to ulcerative colitis ? Renal functions improving we will continue to monitor ? She is potentially withdrawing from her buprenorphine and she had renal failure both of which could be playing into her encephalopathy consistent with metabolic and toxic sources, will continue with Seroquel at night ? PT/OT for evaluation 2. HTN/HLD ? Blood pressures are stable ? With her home medications 3. DM2 ? Blood sugars are stable, continue with her insulin pump ? Accu-Cheks ACHS ? Sliding scale insulin ? We will monitor and make adjustments as necessary 4. GERD ? Stable ? Continue with PPI DVT: Heparin Charges/Coding Visit Charges Inpatient E&M: 99762 Subs Hosp L2
--- NOTE | 2022-09-09 10:43 | CASEMGMT ---
Discharge Planning HH list created and given to RN REDD. Tari Samuels, Discharge Planning Asst.
--- NOTE | 2022-09-09 10:54 | CASEMGMT ---
[facility] notified via [employer] that patient has decided to return home. Tari Samuels, Discharge Planning Asst.
[2022-09-09] MEDS: Magnesium Sulfate 4gm/100mL 4 GM/100 ML IV.SOLN. IV (11:11)
--- NOTE | 2022-09-09 11:19 | CASEMGMT ---
Social Work SW spoke w/pt, then w/pt and significant other. Both in agreement that pt is doing better and can go home. D/C office workforce planner Tari will let [facility] know. SW did ask them about home health, provided to them a list of [facility] agencies via [employer] of [facility] agencies within their geographic area, in insurance network and with quality and resource use data. They are not sure if want home health, SW asked them to review list and the case management associate will follow up w/them. SW let know, she will speak w/pt and Azucena regarding choices if they do indeed want home health. SW did also let Marimar Cain at [facility] know pt going home today via voicemail. MOODY Gracia
[2022-09-09] MEDS: DULoxetine Hcl 30 MG Capsule 90 MG PO (11:24)
[2022-09-09] MEDS: Aspirin E.C. 81 MG Tablet PO (11:24)
[2022-09-09] MEDS: Isosorbide DN 30 MG Tablet PO (11:25)
[2022-09-09] MEDS: Metoprolol Tartrate 25 MG Tablet 75 MG PO (11:25)
[2022-09-09] MEDS: Pantoprazole Sodium 40 MG Tablet PO (11:26)
[2022-09-09] MEDS: Ursodiol 250 MG Tablet PO (11:26)
[2022-09-09] MEDS: Clopidogrel Bisulfate 75 MG Tablet PO (11:26)
[2022-09-09] MEDS: Acetaminophen 325 MG Tablet 650 MG PO (11:29)
--- NOTE | 2022-09-09 11:33 | CASEMGMT ---
Addendum entered by Ayush Bernardo 09/09/22 13:27: [facility] states they can accept pt w/SOC slated for Wednesday. Pt and sig other made aware and voice appreciation. They deny having any DME or supply needs. Original Note: SVETLANA RAINEY NOTE: SVETLANA RAINEY to room. Pt and sig other state they have reviewed the HHC list and they would like [facility] and state if [facility] unable to accept then they do not want any other HHC and pt to go home w/out HHC. Call placed to [facility] and referral made. She was notified pt is discharging home today. Awaiting response. Mitchel IVAN RN CM
[2022-09-09] MEDS: Heparin Injection (Vial) 5,000 UNIT/ML VIAL 5000 UNIT SC (11:34)
--- NOTE | 2022-09-09 13:26 | CASEMGMT ---
Discharge Planning HH referral sent to [facility] via [facility]. Tari Samuels, Discharge Planning Asst.
[2022-09-09 13:59] LABS: Bedside Glucose 233 mg/dL (74-106)
--- NOTE | 2022-09-09 15:10 | PCM.DC ---
Discharge Instructions Diet Discharge Diet: Low fat / Low cholesterol and Carb Control Diet Dressing / Incision Call your doctor if you observe: Fever of 101 or Higher, Shortness of breath, Dizziness, Fainting spells, Swelling in the ankles, Chest pain and Increased palpitations (irregular heartbeat) Follow Up Care Test Results: Test results from this visit will be discussed in further detail at your follow-up appointment, if applicable. Discharge Plan Admission Admit Date/Time: 09/01/22 22:30 Attending Provider: Juan Carlos Gerber Primary Care Provider: Mala Mcgrath Consulting Providers: Valentine Carreno; Roberto Brewster Additional Instructions / Restrictions: f/u with your PCP in 3-5 days to obtain outpatient lab work for magnesium and a BMP for your potassium levels. Hold your Reglan as this can increase GI motility which could cause high ileostomy output. Discharge Orders/Prescriptions Prescriptions: New potassium chloride 20 mEq tablet extended release 20 meq PO DAILY Qty: 14 0RF Continued duloxetine 30 mg capsule,delayed release(DR/EC) 90 mg PO DAILY nitroglycerin 0.4 mg tablet, sublingual 0.4 mg sublingual Q5-15M PRN (Reason: chest pain) Qty: 25 6RF Rx Instructions: do not exceed 3 doses per episode melatonin 3 mg tablet 5 mg PO QHS PRN PRN (Reason: Insomnia) lamotrigine 100 mg tablet 100 mg PO DAILY aspirin 81 mg Tablet,Delayed Release (Dr/Ec) 81 mg PO DAILY Hold Instructions: Resume on 06/10/22. (DME) True Metrix Glucose Test Strip Strip See Rx Instructions .Route Rx Instructions: 3 times per day No longer (DME) Dexcom G6 Meter Repair Shop Supervisor Misc See Rx Instructions .ROUTE .MEDSUPPLY Rx Instructions: As directed (DME) pen needle, diabetic [BD Ultra-Fine Key Pen Needle] 32 gauge x 5/32 needle See Rx Instructions .ROUTE .MEDSUPPLY Rx Instructions: takes 5 injection/day (DME) Wheel Chair See Rx Instructions Rx Instructions: As directed buprenorphine 10 mcg/hour Patch Weekly 1 patch TRANSDERMAL Q7D Rx Instructions: changes on Saturdays loperamide [Imodium A-D] 2 mg capsule 2 mg PO Q6H PRN (Reason: loose stool) Qty: 20 0RF trazodone 50 mg Tablet 50 mg PO QHS dicyclomine 10 mg capsule 20 mg PO DAILY insulin lispro [Humalog KwikPen Insulin] 100 unit/mL Insulin Pen See Protocol subcut ACHS Qty: 0 0RF Protocol: 4. Sliding Scale Insulin High-Med Dosing Condition: 150-199 mg/dl = 2 units Condition: 200-259 mg/dl = 4 units Condition: 260-324 mg/dl = 6 units Condition: 325-374 mg/dl = 8 units Condition: 375-409 mg/dl = 10 units Condition: 410-449 mg/dl = 11 units Condition: Greater than 449 call physician Protocol Text: - Use for Total Daily Dose of Insulin 56-80 units - Patient who are insulin resistant or septic HIGH MEDIUM DOSING ALGORITHM prednisone 20 mg Tablet 20 mg PO BID oxycodone 5 mg Capsule 5 mg PO PRN PRN (Reason: Pain) hydrochlorothiazide 25 mg Tablet 25 mg PO DAILY dicyclomine 10 mg Capsule 10 mg PO QHS metoprolol tartrate 50 mg tablet 50 mg PO .COMPLEX Rx Instructions: 50 mg orally twice a day with a 25 mg tablet twice a day to = 75 mg twice a day; diphenoxylate-atropine [Lomotil] 2.5-0.025 mg tablet 1 tab PO TID PRN (Reason: diarrhea) Qty: 90 0RF ondansetron 4 mg tablet,disintegrating 4 mg PO Q6H PRN (Reason: nausea and vomiting) Qty: 90 0RF hyoscyamine sulfate 0.125 mg tablet 0.125 mg PO Q6H PRN (Reason: dyspepsia) Qty: 60 2RF isosorbide dinitrate 30 mg tablet 30 mg PO BID Qty: 60 11RF (DME) ostomy supplies See Rx Instructions .Route .MEDSUPPLY Qty: 1 0RF Rx Instructions: Pouches Barrier rings Adhesive remover Skin Prep Barrier powder clopidogrel 75 mg tablet 75 mg PO DAILY Qty: 90 3RF Hold Instructions: Resume on 06/10/22. Rx Instructions: TAKE 1 TABLET BY MOUTH EVERY DAY Farxiga 10 mg tablet 10 mg PO DAILY Qty: 90 1RF pantoprazole 40 mg tablet,delayed release (DR/EC) See Rx Instructions .ROUTE .COMPLEX Qty: 28 11RF Dose Instruction: TAKE 1 TABLET BY MOUTH DAILY FOR GERD Rx Instructions: TAKE 1 TABLET BY MOUTH DAILY FOR GERD (DME) Dexcom G6 Sensor Device See Rx Instructions .ROUTE .MEDSUPPLY Qty: 9 1RF Rx Instructions: 1 sensor every 10 days metoprolol tartrate 25 mg tablet 25 mg PO .COMPLEX Qty: 180 3RF Rx Instructions: 25 mg orally take with a 50 mg tablet twice a day to = 75 mg twice a day; (DME) Omnipod 5 G6 Pods (Gen 5) Cartridge See Rx Instructions .Route Qty: 45 1RF Rx Instructions: 1 pod q 48 hours atorvastatin 80 mg tablet 80 mg PO QHS Qty: 90 3RF Patient Comments: cholesterol (DME) Dexcom G6 Transmitter Device See Rx Instructions .ROUTE .MEDSUPPLY Qty: 1 3RF Rx Instructions: 1 transmitter every 90 days ursodiol 300 mg capsule 300 mg PO BID Qty: 180 1RF pregabalin 75 mg capsule 75 mg PO BID Qty: 60 1RF Humalog KwikPen Insulin 200 unit/mL (3 mL) insulin pen 130 unit subcut .continuous Qty: 21 6RF Discontinued metoclopramide HCl [Reglan] 5 mg tablet 5 mg PO BID Referrals / Follow Up: Mala Mcgrath MD [Primary Care Provider] - Within 1 Week Disposition Disposition (needs filled in before D/C Order can be placed): Home Health Service
--- NOTE | 2022-09-09 15:49 | PCM.DC.SUM ---
Providers Date of Admission: 09/01/22 Primary Care Physician: Dr. Mala Mcgrath MD Consultations 09/01/22 23:40 Consult: Gastroenterology Routine Consulting Provider: [facility] Reason for Consult: Recurrent N/V/high ostomy output. EMERGENT Consult: No MD Notified: Yes Date Notified: 09/01/22 Time Notified: 23:07 Method of Notification: Text 09/05/22 12:18 Consult: Onc/Wound/winding inspector Routine Comment: Reason for Consult:: ostomy, 's request Reason For Visit: GASTROENTERITIS, CP Diagnosis Discharge Diagnosis (1) Nausea & vomiting: Status: Acute Code(s): R11.2 - Nausea with vomiting, unspecified (2) High output ileostomy: Status: Acute Code(s): R19.8 - Other specified symptoms and signs involving the digestive system and abdomen; Z93.2 - Ileostomy status (3) DM2 (diabetes mellitus, type 2): Status: Chronic Code(s): E11.9 - Type 2 diabetes mellitus without complications Qualifiers: Diabetes mellitus complication status: with hyperglycemia Diabetes mellitus salvage determiner insulin use: with salvage determiner use Qualified Code(s): E11.65 - Type 2 diabetes mellitus with hyperglycemia; Z79.4 - group home (current) use of insulin Medications at Discharge Home Medications aspirin 81 mg tablet,delayed release 81 mg PO DAILY Check with primary doctor 04/08/21 diphenoxylate-atropine 2.5 mg-0.025 mg tablet (Lomotil) 1 tab PO TID PRN diarrhea #90 tabs 05/19/21 duloxetine 30 mg capsule,delayed release 90 mg PO DAILY Check with primary doctor 10/06/21 hyoscyamine sulfate 0.125 mg tablet 0.125 mg PO Q6H PRN dyspepsia #60 tabs 11/04/21 ondansetron 4 mg disintegrating tablet 4 mg PO Q6H PRN nausea and vomiting #90 tabs 11/04/21 Wheel Chair 11/15/21 blood sugar diagnostic (True Metrix Glucose Test Strip) 11/15/21 blood-glucose meter,continuous (Dexcom G6 Assistant Executive Housekeeper) 11/15/21 pen needle, diabetic 32 gauge x 5/32 (BD Ultra-Fine Key Pen Needle) 11/15/21 buprenorphine 10 mcg/hour weekly transdermal patch 1 patch transdermal Q7D pain 11/18/21 loperamide 2 mg capsule (Imodium A-D) 2 mg PO Q6H PRN loose stool #20 caps 11/18/21 nitroglycerin 0.4 mg sublingual tablet 0.4 mg sublingual Q5-15M PRN chest pain #25 tabs 11/20/21 isosorbide dinitrate 30 mg tablet 30 mg PO BID heart #60 tabs 01/16/22 ostomy supplies #1 ea 02/13/22 dicyclomine 10 mg capsule 20 mg PO DAILY Check with primary doctor 03/14/22 trazodone 50 mg tablet 50 mg PO QHS sleep 03/14/22 clopidogrel 75 mg tablet 75 mg PO DAILY Check with primary doctor #90 tabs 03/16/22 dapagliflozin propanediol 10 mg tablet (Farxiga) 10 mg PO DAILY #90 tabs 03/19/22 pantoprazole 40 mg tablet,delayed release See Rx Instructions .Route .COMPLEX #28 tabs 04/07/22 insulin lispro 100 unit/mL subcutaneous pen (Humalog KwikPen (U-100) Insulin) See Protocol subcut ACHS #0 mL 06/02/22 blood-glucose sensor (Dexcom G6 Sensor device) #9 ea 06/11/22 melatonin 3 mg tablet 5 mg PO QHS PRN PRN Insomnia 07/06/22 lamotrigine 100 mg tablet 100 mg PO DAILY 07/20/22 metoprolol tartrate 25 mg tablet 25 mg PO .COMPLEX bp #180 tabs 07/28/22 insulin pump cart,automated,BT (Omnipod 5 G6 Pods (Gen 5) subcutaneous cartridge) #45 ea 07/31/22 atorvastatin 80 mg tablet 80 mg PO QHS CHOLESTEROL LOWERING #90 tabs 08/04/22 blood-glucose transmitter (Dexcom G6 Transmitter device) #1 ea 08/07/22 pregabalin 75 mg capsule 75 mg PO BID pain #60 caps 08/24/22 ursodiol 300 mg capsule 300 mg PO BID Check with primary doctor #180 caps 08/24/22 insulin lispro 200 unit/mL (3 mL) subcutaneous pen (Humalog KwikPen U-200 Insulin) 130 unit (0.65 mL) subcut .continuous #21 mL 08/28/22 dicyclomine 10 mg capsule 10 mg PO QHS 09/01/22 hydrochlorothiazide 25 mg tablet 25 mg PO DAILY 09/01/22 oxycodone 5 mg capsule 5 mg PO PRN PRN Pain 09/01/22 prednisone 20 mg tablet 20 mg PO BID 09/01/22 metoprolol tartrate 50 mg tablet 50 mg PO .COMPLEX Check with primary doctor 09/02/22 potassium chloride 20 mEq tablet,extended release 20 meq PO DAILY #14 tabs 09/09/22 Hospital Course Operations None Procedures None Summary of Care Provided Minutes Spent on Discharge: 37 Hospital Course: Creased Per HPI: The patient is a 62 y/o F w/ PMHx: MGUS, CAD s/p PCI x 9 secondary to failed CABG x 4 (recent negative stress testing 07/2017), Hypertension, Hyperlipidemia, Depression and Anxiety, Ulcerative Colitis s/p coloproctectomy w/ ostomy complicated by frequent high output w/ recent admission 03/14/22-03/16/22 secondary to associated RALPH on CKD stage IV, Diabetes mellitus type II with chronic neuropathy and associated gastroparesis, Obesity, CKD stage IV, COPD w/ chronic respiratory failure previously using nightly nasal cannula supplementation 2 L now transition to room air, Former tobacco use, ANKITA on BIPAP q HS who presents to the [facility] ED on 09/01/22 with history of ongoing abdominal discomfort, nausea, emesis and high output from her ostomy normally changing her bag twice a day with IV fluid administration every 2 weeks routinely and unfortunately the last 24 hours had onset of nausea, emesis, abdominal cramping with watery output from her ostomy changing the bag as frequently as every 15 minutes with increased weakness, fatigue and malaise prompting eventual ED evaluation. Following questions and eval patient in the ED she did note unfortunately that she may have accidentally forgotten to replace her buprenorphine patch which had been due on Wednesday. Discussed that this likely is contributing to her current acute presentation symptoms as well. In the ED patient noted chest pain onset but this is since alleviated during hospitalist evaluation, aching, 1-2 out of 10 at onset, now resolved, noted to be midsternal, mildly reproducible. Work-up in the ED included T97.3, heart rate 122, BP 131/83, respiratory rate 19, 94% on room air, CBC with WBC 11.6, hemoglobin 15.4, platelet 194 with left shift, CMP with BUN/creatinine 29/2.11, glucose 175, lactic acid 2.8, T. bili 1.10, AST/ALT 13/19, alk phos 141, lipase 26, troponin 12, EKG with ST with no acute evidence of ischemia with diffuse ST changes consistent with prior x 2., urinalysis with specific gravity 1.020, urine protein 100, normal glucose, ketone 5, occult blood 25, negative nitrite, urine bilirubin 1, urine urobilinogen 1, leukocyte Estrace 25, no marked urine RBC or WBCs with 1+ bacteria noted. In the ED patient ministered 1 L normal saline, morphine 4 mg IV x1, Zofran 4 mg IV x1. Hospital Course: 1. Intractable nausea and vomiting with increased ostomy output and short gut syndrome/RALPH/metabolic and toxic encephalopathy?62-year-old female presented to the hospital ostomy output. She has an ostomy secondary to ulcerative colitis and does have a component of short gut syndrome. She did develop some nausea and vomiting as well consistent with a gastroenteritis. This has all since resolved and appreciate gastroenterology's assistance during her care. As for her metabolic and toxic encephalopathy this was likely a combination of her RALPH as well as multiple medications that she is on on an outpatient basis. Her encephalopathy has completely resolved and I discussed this situation with her partner who states that she is back to normal. She was evaluated PT and OT who did not feel that she necessitated a SNF stay. Her potassium and magnesium were little bit low and those were replaced today and I do recommend outpatient follow-up for these values with her PCP. I do recommend holding her Reglan as this can increase GI motility leading to her high ostomy output. I discussed with her and her partner the plan for discharge today and they expressed understanding of the risk benefits going home and would like to go home today. 2. Hypertension, hyperlipidemia, type 2 diabetes, GERD, anxiety, depression, chronic pain are all chronic medical conditions which complicate her care. Her home medications were continued where appropriate Weight / BMI Weight Weight: 214 lb 1.102 oz Body Mass Index (BMI) 33.5 ABG / Lab / Microbiology Data 09/09/22 05:10 09/09/22 05:10 Laboratory: Laboratory Results - last 24 hr 09/08/22 16:49: POC Glucose 213 H 09/08/22 22:22: POC Glucose 239 H 09/09/22 05:10: WBC 7.2, RBC 3.84 L, Hgb 10.8 L, Hct 34.8 L, MCV 90.6, MCH 28.1, MCHC 31.0 L D, RDW Std Deviation 53.0 H, RDW Coeff of Jan 16.2 H, Plt Count 195, MPV 12.0, Neut % (Auto) Not Reportable, Absolute Neuts (auto) 4.5, Absolute Lymphs (auto) 1.66, Total Counted 100, Neutrophils % (Manual) 56, Band Neutrophils % 6 H, Lymphocytes % (Manual) 23, Monocytes % (Manual) 3, Eosinophils % (Manual) 6 H, Metamyelocytes % 4 H, Myelocytes % 2 H, Diff Path Review May foll, Platelet Estimate ADEQUATE, Hypochromasia RARE, Anisocytosis RARE, Microcytosis RARE, Sodium 140, Potassium 2.8 L, Chloride 106, Carbon Dioxide 28.0, Anion Gap 6, BUN 9, Creatinine 1.35 H, Estim Creat Clear Calc 40.94, Est GFR (MDRD) Af Amer 51 L, Est GFR (MDRD) Non-Af 42 L, BUN/Creatinine Ratio 6.7 L, Glucose 216 H, Calcium 8.3 L, Phosphorus 2.6, Magnesium 1.1 L 09/09/22 06:56: POC Glucose 230 H 09/09/22 11:20: POC Glucose 233 H Microbiology: Microbiology 09/01/22 23:40 Stool Enteric Bacteriology - Final 09/01/22 23:40 Stool C. difficile DNA Amplification - Final D/C Instructions Discharge Diet: Low fat / Low cholesterol and Carb Control Diet Call your doctor if you observe: Fever of 101 or Higher, Shortness of breath, Dizziness, Fainting spells, Swelling in the ankles, Chest pain and Increased palpitations (irregular heartbeat) Meaningful Use Info Meaningful Use Diagnoses (Choose all that apply): None applicable Discharge Plan Admission Admit Date/Time: 09/01/22 22:30 Attending Provider: Juan Carlos Gerber Primary Care Provider: Mala Mcgrath Consulting Providers: Valentine Carreno; Roberto Brewster Instructions Additional Instructions / Restrictions: f/u with your PCP in 3-5 days to obtain outpatient lab work for magnesium and a BMP for your potassium levels. Hold your Reglan as this can increase GI motility which could cause high ileostomy output. Discharge Orders/Prescriptions Prescriptions: New potassium chloride 20 mEq tablet extended release 20 meq PO DAILY Qty: 14 0RF Continued duloxetine 30 mg capsule,delayed release(DR/EC) 90 mg PO DAILY nitroglycerin 0.4 mg tablet, sublingual 0.4 mg sublingual Q5-15M PRN (Reason: chest pain) Qty: 25 6RF Rx Instructions: do not exceed 3 doses per episode melatonin 3 mg tablet 5 mg PO QHS PRN PRN (Reason: Insomnia) lamotrigine 100 mg tablet 100 mg PO DAILY aspirin 81 mg Tablet,Delayed Release (Dr/Ec) 81 mg PO DAILY Hold Instructions: Resume on 06/10/22. (DME) True Metrix Glucose Test Strip Strip See Rx Instructions .Route Rx Instructions: 3 times per day No longer (DME) Dexcom G6 Assistant Executive Housekeeper Misc See Rx Instructions .ROUTE .MEDSUPPLY Rx Instructions: As directed (DME) pen needle, diabetic [BD Ultra-Fine Key Pen Needle] 32 gauge x 5/32 needle See Rx Instructions .ROUTE .MEDSUPPLY Rx Instructions: takes 5 injection/day (DME) Wheel Chair See Rx Instructions Rx Instructions: As directed buprenorphine 10 mcg/hour Patch Weekly 1 patch TRANSDERMAL Q7D Rx Instructions: changes on Saturdays loperamide [Imodium A-D] 2 mg capsule 2 mg PO Q6H PRN (Reason: loose stool) Qty: 20 0RF trazodone 50 mg Tablet 50 mg PO QHS dicyclomine 10 mg capsule 20 mg PO DAILY insulin lispro [Humalog KwikPen Insulin] 100 unit/mL Insulin Pen See Protocol subcut ACHS Qty: 0 0RF Protocol: 4. Sliding Scale Insulin High-Med Dosing Condition: 150-199 mg/dl = 2 units Condition: 200-259 mg/dl = 4 units Condition: 260-324 mg/dl = 6 units Condition: 325-374 mg/dl = 8 units Condition: 375-409 mg/dl = 10 units Condition: 410-449 mg/dl = 11 units Condition: Greater than 449 call physician Protocol Text: - Use for Total Daily Dose of Insulin 56-80 units - Patient who are insulin resistant or septic HIGH MEDIUM DOSING ALGORITHM prednisone 20 mg Tablet 20 mg PO BID oxycodone 5 mg Capsule 5 mg PO PRN PRN (Reason: Pain) hydrochlorothiazide 25 mg Tablet 25 mg PO DAILY dicyclomine 10 mg Capsule 10 mg PO QHS metoprolol tartrate 50 mg tablet 50 mg PO .COMPLEX Rx Instructions: 50 mg orally twice a day with a 25 mg tablet twice a day to = 75 mg twice a day; diphenoxylate-atropine [Lomotil] 2.5-0.025 mg tablet 1 tab PO TID PRN (Reason: diarrhea) Qty: 90 0RF ondansetron 4 mg tablet,disintegrating 4 mg PO Q6H PRN (Reason: nausea and vomiting) Qty: 90 0RF hyoscyamine sulfate 0.125 mg tablet 0.125 mg PO Q6H PRN (Reason: dyspepsia) Qty: 60 2RF isosorbide dinitrate 30 mg tablet 30 mg PO BID Qty: 60 11RF (DME) ostomy supplies See Rx Instructions .Route .MEDSUPPLY Qty: 1 0RF Rx Instructions: Pouches Barrier rings Adhesive remover Skin Prep Barrier powder clopidogrel 75 mg tablet 75 mg PO DAILY Qty: 90 3RF Hold Instructions: Resume on 06/10/22. Rx Instructions: TAKE 1 TABLET BY MOUTH EVERY DAY Farxiga 10 mg tablet 10 mg PO DAILY Qty: 90 1RF pantoprazole 40 mg tablet,delayed release (DR/EC) See Rx Instructions .ROUTE .COMPLEX Qty: 28 11RF Dose Instruction: TAKE 1 TABLET BY MOUTH DAILY FOR GERD Rx Instructions: TAKE 1 TABLET BY MOUTH DAILY FOR GERD (DME) Dexcom G6 Sensor Device See Rx Instructions .ROUTE .MEDSUPPLY Qty: 9 1RF Rx Instructions: 1 sensor every 10 days metoprolol tartrate 25 mg tablet 25 mg PO .COMPLEX Qty: 180 3RF Rx Instructions: 25 mg orally take with a 50 mg tablet twice a day to = 75 mg twice a day; (DME) Omnipod 5 G6 Pods (Gen 5) Cartridge See Rx Instructions .Route Qty: 45 1RF Rx Instructions: 1 pod q 48 hours atorvastatin 80 mg tablet 80 mg PO QHS Qty: 90 3RF Patient Comments: cholesterol (DME) Dexcom G6 Transmitter Device See Rx Instructions .ROUTE .MEDSUPPLY Qty: 1 3RF Rx Instructions: 1 transmitter every 90 days ursodiol 300 mg capsule 300 mg PO BID Qty: 180 1RF pregabalin 75 mg capsule 75 mg PO BID Qty: 60 1RF Humalog KwikPen Insulin 200 unit/mL (3 mL) insulin pen 130 unit subcut .continuous Qty: 21 6RF Discontinued metoclopramide HCl [Reglan] 5 mg tablet 5 mg PO BID Referrals / Follow Up: Mala Mcgrath MD [Primary Care Provider] - Within 1 Week Disposition Disposition (needs filled in before D/C Order can be placed): Home Health Service Charges/Coding Visit Charges Inpatient E&M: 66990 Disch Hosp >30min
[2022-09-11 10:21] LABS: Pathologist Review Reviewed
== END 2022-09-09 17:00 | disposition home health service (06) | DRG 391 ==
LOC: ED 22:28 → PCU 22:36
PROVIDERS: Internal Medicine; Admitting Provider Family Medicine; Emergency Provider Emergency Medicine; PCP Internal Medicine; Visit Provider Family Medicine
DX: A08.4 Viral intestinal infection, unspecified (principal); G92.8 Other toxic encephalopathy; K91.2 Postsurgical malabsorption, not elsewhere classified; N17.9 Acute kidney failure, unspecified; I13.0 Hypertensive heart and chronic kidney disease with heart failure and stage 1 through stage 4 chronic kidney disease, or unspecified chronic kidney disease; I50.32 Chronic diastolic (congestive) heart failure; N18.4 Chronic kidney disease, stage 4 (severe); K51.90 Ulcerative colitis, unspecified, without complications; K21.9 Gastro-esophageal reflux disease without esophagitis; D47.2 Monoclonal gammopathy; E11.22 Type 2 diabetes mellitus with diabetic chronic kidney disease; E11.42 Type 2 diabetes mellitus with diabetic polyneuropathy; Z79.4 Long term (current) use of insulin; E11.65 Type 2 diabetes mellitus with hyperglycemia; E11.43 Type 2 diabetes mellitus with diabetic autonomic (poly)neuropathy; J44.9 Chronic obstructive pulmonary disease, unspecified; Z93.2 Ileostomy status; I25.10 Atherosclerotic heart disease of native coronary artery without angina pectoris; F32.A Depression, unspecified; G47.33 Obstructive sleep apnea (adult) (pediatric); K31.84 Gastroparesis; F41.9 Anxiety disorder, unspecified; G89.4 Chronic pain syndrome; E66.9 Obesity, unspecified; R53.81 Other malaise; Z68.31 Body mass index [BMI] 31.0-31.9, adult; Z90.49 Acquired absence of other specified parts of digestive tract; Z90.89 Acquired absence of other organs; Z99.3 Dependence on wheelchair; Z95.1 Presence of aortocoronary bypass graft; Z95.5 Presence of coronary angioplasty implant and graft; Z96.41 Presence of insulin pump (external) (internal); Z79.02 Long term (current) use of antithrombotics/antiplatelets; Z79.82 Long term (current) use of aspirin; Z79.891 Long term (current) use of opiate analgesic; Z79.899 Other long term (current) drug therapy; Z86.16 Personal history of COVID-19; Z87.891 Personal history of nicotine dependence
CPT/HCPCS: 36415; 36600; 70450; 71045; 80048; 80053; 81001; 82140; 82803; 82962; 83605; 83690; 83735; 84100; 84145; 84443; 84484; 85025; 87493; 87506; 93005; 94640; 94668; 97110; 97116; 97162; 97167; 97530; 97535; 99284; J7030; A4216; J2405

== ENCOUNTER 2022-09-16 11:51 | Outpatient (CLI) | payer MEDICARE, MEDICAID, SELFPAY ==
[2020-11-27 10:47] VITALS: BMI 30.9
[2022-09-16 12:05] VITALS: BP 125/54; PULSE 66; RESP 16; TEMP 35.9; O2SAT 99; BMI 31.8
[2022-09-16] MEDS: 0.9% Normal Saline 1,000 ML 999 ML IV ×2 (12:24→13:40)
[2022-09-16] MEDS: 0.9% NaCl Peripheral Flush Adult/Peds IV (12:24)
[2022-09-16 14:59] VITALS: BP 151/59; PULSE 66; RESP 16; TEMP 35.8; O2SAT 98
== END 2022-09-16 11:52 | disposition home or self-care (01) ==
LOC: MEDOUTP 11:51
PROVIDERS: PCP Internal Medicine; Referring Provider Internal Medicine Gastroenterology; Visit Provider Internal Medicine Gastroenterology
DX: R19.8 Other specified symptoms and signs involving the digestive system and abdomen (principal)
CPT/HCPCS: 96360; 96361; J7030; A4216

== ENCOUNTER → 2022-09-17 | Outpatient (CLI) | payer MEDICARE, MEDICAID, SELFPAY ==
[2020-11-27 10:47] VITALS: BMI 30.9
[2022-09-17 13:09] LABS: ALB/GLOB Ratio 0.8 RATIO (0.9-2.4); AST(SGOT) 20 U/L (15-37); Alanine Aminotransfer ALT/SGPT 21 U/L (13-56); Albumin, Serum 2.9 g/dL (3.2-5.0); Alkaline Phosphatase 177 U/L (45-117); Anion Gap 8 (5-15); BUN 22 mg/dL (7-18); BUN/Creat Ratio 11.9 RATIO (10-20); Calcium,Total 8.8 mg/dL (8.5-10.1); Chloride 110 mmol/L (98-107); Creatinine, Serum 1.85 mg/dL (0.55-1.02); EST Glomerular Filtration Rate 29 mL/min (>60); Est Glom Filt Rate - Afr Amer 35 mL/min (>60); Globulin 3.8 g/dL (2.2-4.2); Glucose 247 mg/dL (74-106); Potassium 4.6 mmol/L (3.5-5.1); Protein, Total 6.7 g/dL (6.4-8.2); Sodium Level 141 mmol/L (136-145)
== END | disposition home or self-care (01) ==
LOC: BIMLAB 08:53
PROVIDERS: PCP Internal Medicine; Referring Provider Internal Medicine; Visit Provider Internal Medicine
DX: R19.8 Other specified symptoms and signs involving the digestive system and abdomen (principal); Z93.2 Ileostomy status
CPT/HCPCS: 36415; 80053

== ENCOUNTER 2022-09-30 12:42 | Outpatient (CLI) | payer MEDICARE, MEDICAID, SELFPAY ==
[2020-11-27 10:47] VITALS: BMI 30.9
[2022-09-30 12:57] VITALS: BP 117/56; PULSE 72; RESP 16; TEMP 35.7; O2SAT 96; BMI 31.3
[2022-09-30] MEDS: 0.9% NaCl Peripheral Flush Adult/Peds IV (13:07)
[2022-09-30] MEDS: 0.9% Normal Saline 1,000 ML 999 ML IV ×2 (13:07→14:10)
[2022-09-30 15:24] VITALS: BP 125/54; PULSE 78; RESP 16; TEMP 36; O2SAT 94
== END 2022-09-30 12:43 | disposition home or self-care (01) ==
LOC: MEDOUTP 12:42
PROVIDERS: PCP Internal Medicine; Referring Provider Internal Medicine Gastroenterology; Visit Provider Internal Medicine Gastroenterology
DX: R19.8 Other specified symptoms and signs involving the digestive system and abdomen (principal)
CPT/HCPCS: 96360; 96361; J7030; A4216

== ENCOUNTER 2022-10-14 12:46 | Outpatient (CLI) | payer MEDICARE, MEDICAID, SELFPAY ==
[2020-11-27 10:47] VITALS: BMI 30.9
[2022-10-14 12:53] VITALS: BP 147/64; PULSE 68; RESP 16; TEMP 35.9; O2SAT 96; BMI 32.1
[2022-10-14] MEDS: 0.9% Normal Saline 1,000 ML 999 ML IV ×2 (13:04→14:13)
[2022-10-14] MEDS: 0.9% NaCl Peripheral Flush Adult/Peds IV (13:04)
[2022-10-14 15:25] VITALS: BP 155/58; PULSE 67; RESP 16; TEMP 36.3; O2SAT 97
== END 2022-10-14 12:47 | disposition home or self-care (01) ==
LOC: MEDOUTP 12:46
PROVIDERS: PCP Internal Medicine; Referring Provider Internal Medicine Gastroenterology; Visit Provider Internal Medicine Gastroenterology
DX: R19.8 Other specified symptoms and signs involving the digestive system and abdomen (principal)
CPT/HCPCS: 96365; 96366; J7030; A4216

== ENCOUNTER 2022-10-28 12:42 | Outpatient (CLI) | payer MEDICARE, MEDICAID, SELFPAY ==
[2020-11-27 10:47] VITALS: BMI 30.9
[2022-10-28] MEDS: 0.9% NaCl Peripheral Flush Adult/Peds IV (13:44)
[2022-10-28 13:45] VITALS: BP 130/61; PULSE 63; RESP 18; TEMP 36.7; O2SAT 92; BMI 31.3
[2022-10-28] MEDS: 0.9% Normal Saline 1,000 ML 999 ML IV ×2 (13:45→14:45)
[2022-10-28 16:02] VITALS: BP 143/70; PULSE 71
== END 2022-10-28 12:43 | disposition home or self-care (01) ==
LOC: MEDOUTP 12:42
PROVIDERS: PCP Internal Medicine; Referring Provider Internal Medicine Gastroenterology; Visit Provider Internal Medicine Gastroenterology
DX: R19.8 Other specified symptoms and signs involving the digestive system and abdomen (principal)
CPT/HCPCS: 96365; 96366; J7030; A4216

== ENCOUNTER → 2022-11-06 | Outpatient (CLI) | payer MEDICARE, MEDICAID, SELFPAY ==
[2020-11-27 10:47] VITALS: BMI 30.9
[2022-11-06 13:40] LABS: ALB/GLOB Ratio 0.9 RATIO (0.9-2.4); AST(SGOT) 18 U/L (15-37); Alanine Aminotransfer ALT/SGPT 20 U/L (13-56); Albumin, Serum 3.7 g/dL (3.2-5.0); Alkaline Phosphatase 141 U/L (45-117); Anion Gap 7 (5-15); BUN 42 mg/dL (7-18); BUN/Creat Ratio 24.4 RATIO (10-20); Calcium,Total 9.1 mg/dL (8.5-10.1); Chloride 108 mmol/L (98-107); Creatinine, Serum 1.72 mg/dL (0.55-1.02); EST Glomerular Filtration Rate 32 mL/min (>60); Est Glom Filt Rate - Afr Amer 38 mL/min (>60); Glucose 164 mg/dL (74-106); Potassium 4.4 mmol/L (3.5-5.1); Protein, Total 7.7 g/dL (6.4-8.2); Sodium Level 141 mmol/L (136-145)
== END | disposition home or self-care (01) ==
LOC: LAB 12:23
PROVIDERS: Nurse Practitioner Family; PCP Internal Medicine; Referring Provider Internal Medicine Endocrinology, Diabetes & Metabolism; Visit Provider Internal Medicine Endocrinology, Diabetes & Metabolism
DX: N18.4 Chronic kidney disease, stage 4 (severe) (principal)
CPT/HCPCS: 36415; 80053

== ENCOUNTER 2022-11-12 09:42 | Outpatient (CLI) | payer MEDICARE, MEDICAID, SELFPAY ==
[2020-11-27 10:47] VITALS: BMI 30.9
[2022-11-12] MEDS: 0.9% Normal Saline 1,000 ML 999 ML IV ×2 (09:53→10:58)
[2022-11-12 09:55] VITALS: BP 126/60; PULSE 63; RESP 16; TEMP 36.5; O2SAT 97; BMI 31.3
[2022-11-12 12:11] VITALS: BP 144/60; PULSE 71; RESP 16; TEMP 36.1; O2SAT 99
== END 2022-11-12 09:43 | disposition home or self-care (01) ==
LOC: MEDOUTP 09:42
PROVIDERS: PCP Internal Medicine; Referring Provider Internal Medicine Gastroenterology; Visit Provider Internal Medicine Gastroenterology
DX: R19.8 Other specified symptoms and signs involving the digestive system and abdomen (principal)
CPT/HCPCS: 96365; 96366; J7030; A4216

== ENCOUNTER 2022-11-27 09:52 | Outpatient (CLI) | payer MEDICARE, MEDICAID, SELFPAY ==
[2020-11-27 10:47] VITALS: BMI 30.9
[2022-11-27 10:06] VITALS: BP 137/67; PULSE 65; RESP 16; TEMP 35.7; O2SAT 99; BMI 31.3
[2022-11-27] MEDS: 0.9% NaCl Peripheral Flush Adult/Peds IV (10:13)
[2022-11-27] MEDS: 0.9% Normal Saline (1000mL) 1,000 ML 999 ML IV ×2 (10:14→11:27)
[2022-11-27 12:33] VITALS: BP 143/61; PULSE 67; RESP 16; O2SAT 98
== END 2022-11-27 09:53 | disposition home or self-care (01) ==
LOC: MEDOUTP 09:52
PROVIDERS: PCP Internal Medicine; Referring Provider Internal Medicine Gastroenterology; Visit Provider Internal Medicine Gastroenterology
DX: R19.8 Other specified symptoms and signs involving the digestive system and abdomen (principal)
CPT/HCPCS: 96365; 96366; J7030; A4216

== ENCOUNTER 2022-12-11 10:10 | Outpatient (CLI) | payer MEDICARE, MEDICAID, SELFPAY ==
[2020-11-27 10:47] VITALS: BMI 30.9
[2022-12-11 10:31] VITALS: BP 166/80; PULSE 71; TEMP 36.2; O2SAT 96; BMI 31.4
[2022-12-11] MEDS: 0.9% Normal Saline (1000mL) 1,000 ML 999 ML IV ×2 (10:53→11:57)
[2022-12-11] MEDS: 0.9% NaCl Peripheral Flush Adult/Peds IV (10:55)
[2022-12-11 13:06] VITALS: BP 150/79; PULSE 75; RESP 16; TEMP 36.3; O2SAT 95
== END 2022-12-11 10:11 | disposition home or self-care (01) ==
LOC: MEDOUTP 10:10
PROVIDERS: PCP Internal Medicine; Referring Provider Internal Medicine Gastroenterology; Visit Provider Internal Medicine Gastroenterology
DX: R91.8 Other nonspecific abnormal finding of lung field (principal)
CPT/HCPCS: 96365; 96366; J7030; A4216

== ENCOUNTER → 2022-12-17 | Outpatient (CLI) | payer MEDICARE, MEDICAID, SELFPAY ==
[2020-11-27 10:47] VITALS: BMI 30.9
[2022-12-17 17:18] LABS: ALB/GLOB Ratio 0.8 RATIO (0.9-2.4); AST(SGOT) 13 U/L (15-37); Alanine Aminotransfer ALT/SGPT 21 U/L (13-56); Albumin, Serum 3.2 g/dL (3.2-5.0); Alkaline Phosphatase 165 U/L (45-117); Anion Gap 6 (5-15); BUN 34 mg/dL (7-18); BUN/Creat Ratio 17.3 RATIO (10-20); Calcium,Total 9.2 mg/dL (8.5-10.1); Chloride 108 mmol/L (98-107); Creatinine, Serum 1.96 mg/dL (0.55-1.02); EST Glomerular Filtration Rate 27 mL/min (>60); Est Glom Filt Rate - Afr Amer 33 mL/min (>60); Globulin 4.1 g/dL (2.2-4.2); Glucose 212 mg/dL (74-106); Protein, Total 7.3 g/dL (6.4-8.2); Sodium Level 140 mmol/L (136-145); T4 Free Direct 0.81 ng/dL (0.76-1.46); Thyroid Stim Hormone (TSH) 1.61 uIU/mL (0.358-3.74)
[2022-12-17 17:20] LABS: Absolute Lymphocyte Count 2.46 X10^3/uL (0.83-4.51); Absolute Neutrophil Count 4.8 X10^3/uL (2.0-7.7); Basophil# 0.11 X10^3/uL; Basophil% 1.3 % (0-1); Eosinophil# 0.22 X10^3/uL; Eosinophils% 2.6 % (0-5); Hematocrit 41.3 % (37-47); Hemoglobin 12.6 g/dL (12.0-15.0); Lymphocyte # 2.46 X10^3/ul (0.83-4.51); Lymphocyte % 29.2 % (19-41); Mean Corp Hgb Conc 30.5 g/dL (32-36); Mean Corpuscular Hgb 27.3 pg (27.0-32.0); Mean Corpuscular Volume 89.6 fL (81-99); Mean Platelet Vol. 12.7 fl (6.2-12.0); Monocyte# 0.67 X10^3/uL; Monocyte% 7.9 % (0-10); NRBC Flagged by Analyzer 0 % (0-5); Neutrophil # 4.82 X10^3/uL (2.7-7.7); Neutrophil % 57.2 % (47-70); Platelet Count 193 K/mm3 (150-450); RBC Distribution Width CV 15.5 % (11.6-14.6); Red Blood Count 4.61 M/mm3 (4.2-5.4); White Blood Count 8.4 K/mm3 (4.4-11.0)
== END | disposition home or self-care (01) ==
LOC: BIMLAB 15:12
PROVIDERS: PCP Internal Medicine; Referring Provider Internal Medicine; Visit Provider Internal Medicine
DX: I10 Essential (primary) hypertension (principal)
CPT/HCPCS: 36415; 80053; 82140; 84439; 84443; 85025

== ENCOUNTER 2022-12-24 10:15 | Outpatient (CLI) | payer MEDICARE, MEDICAID, SELFPAY ==
[2020-11-27 10:47] VITALS: BMI 30.9
[2022-12-24 10:27] VITALS: BP 160/69; PULSE 76; RESP 16; TEMP 35.9; O2SAT 97; BMI 32.1
[2022-12-24] MEDS: 0.9% NaCl Peripheral Flush Adult/Peds IV (10:44)
[2022-12-24] MEDS: 0.9% Normal Saline (1000mL) 1,000 ML 999 ML IV ×2 (10:54→11:54)
[2022-12-24 13:09] VITALS: BP 157/62; PULSE 72
== END 2022-12-24 10:16 | disposition home or self-care (01) ==
LOC: MEDOUTP 10:15
PROVIDERS: PCP Internal Medicine; Referring Provider Internal Medicine Gastroenterology; Visit Provider Internal Medicine Gastroenterology
DX: R19.8 Other specified symptoms and signs involving the digestive system and abdomen (principal)
CPT/HCPCS: 96365; 96366; J7030; A4216

== ENCOUNTER → 2022-12-30 | Outpatient (CLI) | payer MEDICARE, MEDICAID, SELFPAY ==
[2020-11-27 10:47] VITALS: BMI 30.9
--- NOTE | 2022-12-30 09:35 | RAD_ITS ---
EXAM: XR BONE SURVEY, COMPLETE CLINICAL INDICATION: F/U MGUS AND FOCI IN DISTAL RIGHT FEMUR TECHNIQUE: Multiple views of the bones of the axial and appendicular skeleton. COMPARISON: No relevant prior studies available. FINDINGS: BONES/JOINTS: Total left hip prosthesis in anatomic alignment. SOFT TISSUES: Unremarkable. RAD/Bone Survey Comp(Axial&Append) IMPRESSION: No acute findings in the skeleton. Electronically Signed: Rip Buchanan MD at 21:49 EDT ,
[2022-12-30 10:19] LABS: Absolute Lymphocyte Count 2.27 X10^3/uL (0.83-4.51); Absolute Neutrophil Count 4.4 X10^3/uL (2.0-7.7); Basophil# 0.07 X10^3/uL; Basophil% 0.9 % (0-1); Eosinophil# 0.33 X10^3/uL; Eosinophils% 4.2 % (0-5); Hematocrit 40.1 % (37-47); Hemoglobin 12.6 g/dL (12.0-15.0); Lymphocyte # 2.27 X10^3/ul (0.83-4.51); Lymphocyte % 29.1 % (19-41); Mean Corp Hgb Conc 31.4 g/dL (32-36); Mean Corpuscular Hgb 27.8 pg (27.0-32.0); Mean Corpuscular Volume 88.3 fL (81-99); Monocyte# 0.64 X10^3/uL; Monocyte% 8.2 % (0-10); NRBC Flagged by Analyzer 0 % (0-5); Neutrophil # 4.37 X10^3/uL (2.7-7.7); Neutrophil % 56.1 % (47-70); Platelet Count 167 K/mm3 (150-450); RBC Distribution Width CV 16.5 % (11.6-14.6); Red Blood Count 4.54 M/mm3 (4.2-5.4); White Blood Count 7.8 K/mm3 (4.4-11.0)
[2022-12-30 10:34] LABS: ALB/GLOB Ratio 0.8 RATIO (0.9-2.4); AST(SGOT) 21 U/L (15-37); Alanine Aminotransfer ALT/SGPT 21 U/L (13-56); Alkaline Phosphatase 168 U/L (45-117); Anion Gap 6 (5-15); BUN 27 mg/dL (7-18); BUN/Creat Ratio 15.4 RATIO (10-20); Chloride 111 mmol/L (98-107); Creatinine, Serum 1.75 mg/dL (0.55-1.02); EST Glomerular Filtration Rate 31 mL/min (>60); Est Glom Filt Rate - Afr Amer 38 mL/min (>60); Glucose 182 mg/dL (74-106); Sodium Level 142 mmol/L (136-145)
[2022-12-30 18:00] LABS: Xtra Tube EP Lab EXTRA TUBE
[2022-12-31 15:07] LABS: Albumin 3.3 g/dL (2.9-4.4); Alpha-1-Globulins 0.2 g/dL (0.0-0.4); Alpha-2-Globulins 0.9 g/dL (0.4-1.0); Gamma Globulin 0.9 g/dL (0.4-1.8); Immunoglobulin A 255 mg/dL (87-352); Immunoglobulin G 928 mg/dL (586-1602); Immunoglobulin M 31 mg/dL (26-217); PROEL- TOTAL PROTEIN 6.5 g/dL (6.0-8.5)
== END | disposition home or self-care (01) ==
PROVIDERS: PCP Internal Medicine; Referring Provider Internal Medicine Hematology & Oncology; Visit Provider Internal Medicine Hematology & Oncology
DX: D47.2 Monoclonal gammopathy (principal)
CPT/HCPCS: 36415; 77075; 80053; 82784; 84165; 85025; 86334

== ENCOUNTER 2023-01-04 20:00 | Inpatient (IN) | payer MEDICARE, MEDICAID, SELFPAY ==
[2020-11-27 10:47] VITALS: BMI 30.9
[2023-01-04 20:01] VITALS: BP 130/79; PULSE 109; RESP 26; TEMP 29.1; O2SAT 92; BMI 31.4
[2023-01-04 20:10] VITALS: BP 130/079; PULSE 103; RESP 22; TEMP 36.2; O2SAT 92
--- NOTE | 2023-01-04 20:26 | EKG12_ITS ---
Test Reason : GENERAL ILLNESS Blood Pressure : / mmHG Vent. Rate : 106 BPM Atrial Rate : 106 BPM P-R Int : 158 ms QRS Dur : 106 ms QT Int : 372 ms P-R-T Axes : 039 -58 093 degrees QTc Int : 494 ms Sinus tachycardia Biatrial enlargement Left axis deviation Pulmonary disease pattern Left ventricular hypertrophy ( R in aVL , Parminder product ) ST & T wave abnormality, consider lateral ischemia Abnormal ECG Confirmed by CHLOÉ DOMINGUEZ, AL ([id number]), purchasing expeditor DEREK CAVAZOS ([id number]) on 01/06/2023 6:50:55 AM Referred By: BB Confirmed By:AL LUEVANO MD
--- NOTE | 2023-01-04 20:27 | EDS_ITS ---
HPI History of Present Illness Chief Complaint: General Illness Detail of Chief Complaint: abd pain Informant: patient Narrative Narrative: Patient states earlier this afternoon she started having upper abdominal cramping followed by nausea/vomiting, similar to other episodes of gastroparesis she has had, which tends to occur 2 or 3 times per year on average. She states then she started having increased diarrhea output from her ileostomy, it is usually thin stool but today it has been watery and increased in output. No fevers or chills that she knows of. Pain is throughout her upper abdomen not the lower abdomen. Later she started having crushing heaviness chest pain that she is currently having in addition to dyspnea. She states she has a history of a quadruple bypass and 11 stents and this feels like her heart pain. The chest symptoms started just prior to arrival, about 30 minutes after her last episode of vomiting, starting while she was lying down supine. She states that she was emptying her ileostomy bag of yellow watery diarrhea every 30 minutes for a little while this evening. No recent antibiotics. [facility] Medical History Acute kidney injury Anxiety Anxiety and depression Arthritis Avascular necrosis of bone of left hip BiPAP (biphasic positive airway pressure) dependence BMI 31.0-31.9,adult CAD (coronary artery disease) Cardiology follow-up encounter Cellulitis, abdominal wall Chronic back pain Chronic diastolic (congestive) heart failure Chronic narcotic use Chronic respiratory failure Chronic respiratory failure with hypoxia, on home O2 therapy CKD (chronic kidney disease), stage IV COPD (chronic obstructive pulmonary disease) Depression with anxiety Diabetic gastroparesis DM2 (diabetes mellitus, type 2) Elevated anti-tissue transglutaminase (tTG) IgA level Fatty liver FCHL (familial combined hyperlipidemia) Former smoker Gastric reflux Gastroparesis High output ileostomy History of CAD (coronary artery disease) History of COVID-19 Hx of diabetic gastroparesis Hyperlipidemia Hypertension Ileostomy present Insulin dependent diabetes mellitus Left shoulder pain Liver mass Loss of hearing Malaise and fatigue Menieres disease MGUS (monoclonal gammopathy of unknown significance) Migraine headache Myoclonic jerking Non-alcoholic fatty liver disease Nonalcoholic steatohepatitis Obesity Obstructive sleep apnea Psoriasis Secondary pulmonary arterial hypertension Short bowel syndrome Smoking greater than 20 pack years Type 2 diabetes mellitus with diabetic polyneuropathy Ulcerative colitis Vitamin B12 deficiency Vitamin D deficiency Walker as ambulation aid Wears glasses Home Medications aspirin 81 mg tablet,delayed release 81 mg PO DAILY Check with primary doctor 04/08/21 [History Last Taken 05/27/22] diphenoxylate-atropine 2.5 mg-0.025 mg tablet (Lomotil) 1 tab PO TID PRN diarrhea #90 tabs 05/19/21 [Rx Last Taken 05/17/22] duloxetine 30 mg capsule,delayed release 90 mg PO DAILY Check with primary doctor 10/06/21 [History Last Taken 05/27/22] hyoscyamine sulfate 0.125 mg tablet 0.125 mg PO Q6H PRN dyspepsia #60 tabs 11/04/21 [Rx Last Taken 05/25/22] Wheel Chair 11/15/21 [History Last Taken Unknown] blood sugar diagnostic (True Metrix Glucose Test Strip) 11/15/21 [History Last Taken Unknown] blood-glucose meter,continuous (Dexcom G6 [employer]) 11/15/21 [History Last Taken Unknown] pen needle, diabetic 32 gauge x 5/32 (BD Ultra-Fine Key Pen Needle) 11/15/21 [History Last Taken Unknown] buprenorphine 10 mcg/hour weekly transdermal patch 1 patch transdermal Q7D pain 11/18/21 [History Last Taken 05/23/22] loperamide 2 mg capsule (Imodium A-D) 2 mg PO Q6H PRN loose stool #20 caps 11/18/21 [Rx Last Taken 05/14/22] nitroglycerin 0.4 mg sublingual tablet 0.4 mg sublingual Q5-15M PRN chest pain #25 tabs 11/20/21 [Rx Last Taken Unknown] ostomy supplies #1 ea 02/13/22 [Rx Last Taken Unknown] dicyclomine 10 mg capsule 20 mg PO DAILY Check with primary doctor 03/14/22 [History Last Taken 05/27/22] clopidogrel 75 mg tablet 75 mg PO DAILY Check with primary doctor #90 tabs 11/28 [Rx Last Taken 05/27/22] pantoprazole 40 mg tablet,delayed release See Rx Instructions .Route .COMPLEX #28 tabs 04/07/22 [Rx Last Taken 05/27/22] melatonin 3 mg tablet 5 mg PO QHS PRN PRN Insomnia 07/06/22 [History Last Taken Unknown] lamotrigine 100 mg tablet 100 mg PO DAILY 07/20/22 [History Last Taken Unknown] metoprolol tartrate 25 mg tablet 25 mg PO .COMPLEX bp #180 tabs 07/28/22 [Rx Las t Taken Unknown] insulin pump cart,automated,BT (Omnipod 5 G6 Pods (Gen 5) subcutaneous cartridge) #45 ea 07/31/22 [Rx Last Taken Unknown] atorvastatin 80 mg tablet 80 mg PO QHS CHOLESTEROL LOWERING #90 tabs 08/04/22 [Rx Last Taken Unknown] blood-glucose transmitter (Dexcom G6 Transmitter device) #1 ea 08/07/22 [Rx Last Taken Unknown] dicyclomine 10 mg capsule 10 mg PO QHS 09/01/22 [History Last Taken Unknown] metoprolol tartrate 50 mg tablet 50 mg PO .COMPLEX Check with primary doctor 09/02/22 [History Last Taken Unknown] Handicap Placard #1 ea 09/16/22 [Rx Last Taken Unknown] dapagliflozin propanediol 10 mg tablet (Farxiga) 10 mg PO DAILY #90 tabs 09/16/22 [Rx Last Taken Unknown] triamcinolone acetonide 0.1 % topical cream 1 applic topical BID PRN rash #453.6 grams 09/16/22 [Rx Last Taken Unknown] cholecalciferol (vitamin D3) 50 mcg (2,000 unit) capsule 50 mcg PO DAILY 11/10/22 [History Last Taken Unknown] isosorbide dinitrate 30 mg tablet 30 mg PO BID heart #60 tabs 12/11/22 [Rx Last Taken Unknown] blood-glucose sensor (Dexcom G6 Sensor device) #9 ea 12/14/22 [Rx Last Taken Unknown] pregabalin 75 mg capsule 75 mg PO BID pain #60 caps 12/15/22 [Rx Last Taken Unknown] ursodiol 300 mg capsule 300 mg PO BID Check with primary doctor 12/17/22 [History Last Taken Unknown] insulin lispro 200 unit/mL (3 mL) subcutaneous pen (Humalog KwikPen U-200 Insulin) 130 unit subcut .continuous 01/04/23 [History Last Taken Unknown] Allergy/AdvReac Type Severity Reaction Status Date / Time ciprofloxacin Allergy Intermediate Swelling Verified 01/04/23 20:07 cinnamon [Cinnamon] Allergy Anaphylaxis Verified 01/04/23 20:07 Influenza Virus Vaccines Allergy Shortness Verified 01/04/23 20:07 of breath liraglutide [From Victoza] Allergy Anaphylaxis Verified 01/04/23 20:07 metformin [From Glucophage] Allergy NEEDS Verified 01/04/23 20:07 FOLLOW-UP metronidazole [From Flagyl] Allergy Hives Verified 01/04/23 20:07 Metronidazole HCl Allergy Hives Verified 01/04/23 20:07 [From Flagyl] Penicillins Allergy Hives Verified 01/04/23 20:07 Sulfa (Sulfonamide Allergy Hives Verified 01/04/23 20:07 Antibiotics) aripiprazole [From Abilify] AdvReac hallucinati Verified 01/04/23 20:07 ons codeine AdvReac Stops Verified 01/04/23 20:07 Ileostomy metformin HCl AdvReac Nausea Verified 01/04/23 20:07 [From Glucophage] ranolazine AdvReac Nausea/Vom/ Verified 01/04/23 20:07 Diarrhea [id number] Reductase AdvReac Nausea/joints Verified 01/04/23 20:07 Inhibitor ache [Iiypvaw-Hey-Kjg Reductase Inhibitor] Family History Mother CVA (cerebral vascular accident) Diabetes Brother Heart disease of CAD at 65 Myocardial infarction Pancreatitis Father Cancer lymphomia Lymphoma Grandmother Myocardial infarction of [place] in her 70s Sister COPD (chronic obstructive pulmonary disease) Surgical History H/O colectomy H/O coronary artery bypass surgery (05/18/12) H/O sinus surgery H/O total hysterectomy history closed fissure History of History of cardiac catheterization History of cholecystectomy History of coronary artery stent placement (01/12/18) ileostomy Ileostomy status left thumb surgery Status post total hip replacement, left Social History household members: none Smoking Status: Former smoker quit date: 03/08/12 how long ago did patient quit smoking: quit in 2012; 0.5-1ppd x 30yrs alcohol intake: never substance use type: does not use diet: diabetic caffeine: No eating out: 1-3 times/week what type of physical activity do you participate in: none seatbelt use: always do you feel safe at home: Yes ROS ROS ED Constitutional Constitutional ED: Reports fatigue and malaise; Denies chills or fever(s) Eyes Eyes: Denies change in vision or diplopia ENT ENT ED: Denies rhinorrhea or sore throat Cardiovascular Cardiovascular: Reports chest pain; Denies palpitations or radiating jaw, neck or arm pain Respiratory/Chest Respiratory/Chest: Reports dyspnea; Denies cough Gastrointestinal Gastrointestinal: Reports abdominal pain, diarrhea, nausea and vomiting; Denies melena or rectal bleeding Genitourinary Genitourinary ED: Denies dysuria or hematuria Musculoskeletal Musculoskeletal: Denies back pain or neck pain Integumentary Denies abscess or rash Neurologic Neurologic: Denies headache(s), paresthesias or weakness Psychiatric Psychiatric: Denies suicidal ideation or suicidal thoughts EXAM Physical Exam Const Vital Signs: 01/04/23 20:01 01/04/23 20:10 01/04/23 22:29 Temperature 84.3 F L 97.1 F L Temperature Source Temporal Axillary Pulse Rate 109 H 103 H 97 Respiratory Rate 26 H 22 H 18 Blood Pressure 130/79 H 130/079 H Blood Pressure Mean 96 96 Pulse Ox 92 92 Oxygen Delivery Method Room Air Room Air Positive well nourished and well developed Constitutional Narrative: Appears malaised General Appearance ED: well developed and NAD HEENT Reports moist mucous membranes normocephalic and atraumatic Eyes PERRL and EOMs intact bilaterally Neck full ROM and supple Resp normal respiratory effort and clear to auscultation bilaterally Resp Narrative: Limited auscultation of the lungs, patient lying supine refusing to move and allow access posteriorly. Cardio regular rate, regular rhythm and no murmurs Rate: tachycardic GI non-distended GI Narrative: Tender throughout upper abdomen no guarding or rebound. No other areas of abdominal tenderness. There is nonbloody yellow-green diarrhea in the ileostomy left lower quadrant there is no tenderness around it. No hernias. Well-healed midline abdominal surgical incision. Auscultation: hyperactive bowel sounds Palpation: soft Back/Spine no CVA tenderness General Back: other FROM Extremity normal to inspection General Extremety ED: Negative for edema, pulses abnormal or tenderness General Extremity: Negative for edema or pulses abnormal Neuro oriented x3, CN's II-XII intact bilaterally and no sensory deficits noted Sensorium / Orientation: awake and alert Motor Exam: strength 5/5 throughout Psych Mood & Affect: anxious Skin no rashes or lesions noted and no wounds MDM MDM MDM Narrative Medical decision making narrative: Patient was initially treated with IV fluids and Reglan and morphine. Her nausea was a lot better, she was having some muscle spasms in her legs that are painful as well as continued abdominal cramping, to which I responded by ordering Norflex, Mylanta, and dicyclomine. She is asking for water and ice c hips to drink which she was offered as well. At this time her CBC came back but the rest of her blood is hemolyzed and had to be redrawn. Her blood appears thick clinically, her hemoglobin is 18.7. This is a significant increase, I suspect it is probably due to some degree of dehydration. This was confirmed later when her labs returned showing acute renal failure and resultant hyperkalemia, she does not have acute EKG changes from this, so she will continue to be treated with IV fluids, add a dose of Kayexalate since she is taking oral fluids, and admitted to the hospital. No indicators of acute hemolysis or anemia at this time to suggest HUS. Fecal white blood cell smear is positive, C. difficile is negative, I did send an enteric bacterial panel due to this and it will not be performed tonight, it will be done on morning shift. She provided very little amount of urine, lab is only able to perform a urine dip on it which I think is adequate, since she does not have any urinary symptoms, it shows protein likely due to her RALPH, but no sign of acute infection. Initial troponin is within normal limits, a 2-hour repeat will be ordered and discussed with hospitalist for admission to PCU. History & Record Review Additional record(s) reviewed:: Prior labs Lab Data Attestation: I reviewed the patient's lab results. Labs: Laboratory Results - last 24 hr 01/04/23 01/04/23 01/04/23 20:07 20:29 20:50 WBC 12.0 H RBC 6.94 H Hgb 18.7 H* Hct 59.5 H MCV 85.7 MCH 26.9 L MCHC 31.4 L RDW Std Deviation 49.0 H RDW Coeff of Jan 17.6 H Plt Count 291 MPV 13.0 H Immature Gran % (Auto) 0.700 Neut % (Auto) 73.3 H Lymph % (Auto) 20.1 [place] % (Auto) 4.7 Eos % (Auto) 0.7 Baso % (Auto) 0.5 Absolute Neuts (auto) 8.8 H Absolute Lymphs (auto) 2.41 Nucleated RBC % 0.2 Diff Path Review May foll Platelet Estimate ADEQUATE RBC Morphology N CHROM Anisocytosis RARE Macrocytosis RARE Ovalocytes RARE Sodium Cancelled Potassium Cancelled Chloride Cancelled Carbon Dioxide Cancelled Anion Gap Cancelled BUN Cancelled Creatinine Cancelled Estim Creat Clear Calc Cancelled Est GFR (MDRD) Af Amer Cancelled Est GFR (MDRD) Non-Af Cancelled BUN/Creatinine Ratio Cancelled Glucose Cancelled Calcium Cancelled Total Bilirubin Cancelled AST Cancelled ALT Cancelled Alkaline Phosphatase Cancelled Troponin I High Sens Cancelled Total Protein Cancelled Albumin Cancelled Globulin Cancelled Albumin/Globulin Ratio Cancelled Lipase Cancelled Urine Color Yellow Urine Clarity Sl. Cloudy Urine pH 5.0 Ur Specific [place] 1.030 Urine Protein 500 H Urine Glucose (UA) 250 H Urine Ketones 15 H Urine Occult Blood 25 H Urine Nitrite Negative Urine Bilirubin 3 H Urine Urobilinogen 1 H Ur Leukocyte Esterase 25 H Urine RBC Cancelled Urine WBC Cancelled Ur Squamous Epith Cells Cancelled Ur Transition Epith Cell Cancelled Ur Renal Epithelial Cell Cancelled Calcium Oxalate Crystal Cancelled Uric Acid Crystals Cancelled Triple Phos Crystals Cancelled Other Crystals Cancelled Amorphous Sediment Cancelled Urine Bacteria Cancelled Hyaline Casts Cancelled Fine Granular Casts Cancelled Coarse Granular Casts Cancelled Waxy Casts Cancelled RBC Casts Cancelled WBC Casts Cancelled Urine Mucus Cancelled Urine Trichomonas Cancelled Urine Yeast Cancelled POC Glucose 286 H 01/04/23 22:00 WBC RBC Hgb Hct MCV MCH MCHC RDW Std Deviation RDW Coeff of Jan Plt Count MPV Immature Gran % (Auto) Neut % (Auto) Lymph % (Auto) [place] % (Auto) Eos % (Auto) Baso % (Auto) Absolute Neuts (auto) Absolute Lymphs (auto) Nucleated RBC % Diff Path Review Platelet Estimate RBC Morphology Anisocytosis Macrocytosis Ovalocytes Sodium 132 L Potassium 6.6 H* Chloride 95 L Carbon Dioxide 24.0 Anion Gap 13 BUN 42 H Creatinine 3.35 H Estim Creat Clear Calc 16.50 Est GFR (MDRD) Af Amer 18 L Est GFR (MDRD) Non-Af 15 L BUN/Creatinine Ratio 12.5 Glucose 307 H Calcium 12.0 H Total Bilirubin 1.40 H AST 33 ALT 27 Alkaline Phosphatase 218 H Troponin I High Sens 16 Total Protein 10.8 H Albumin 4.7 Globulin 6.1 H Albumin/Globulin Ratio 0.8 L Lipase 73 Urine Color Urine Clarity Urine pH Ur Specific [place] Urine Protein Urine Glucose (UA) Urine Ketones Urine Occult Blood Urine Nitrite Urine Bilirubin Urine Urobilinogen Ur Leukocyte Esterase Urine RBC Urine WBC Ur Squamous Epith Cells Ur Transition Epith Cell Ur Renal Epithelial Cell Calcium Oxalate Crystal Uric Acid Crystals Triple Phos Crystals Other Crystals Amorphous Sediment Urine Bacteria Hyaline Casts Fine Granular Casts Coarse Granular Casts Waxy Casts RBC Casts WBC Casts Urine Mucus Urine Trichomonas Urine Yeast POC Glucose Radiography Chest X-Ray - ED: 1 View, Read by ED Physician, No Acute Disease and No Infiltrates Diagnostic Testing: Clinical Impression(s) from Imaging Studies Chest X-Ray 01/04/23 20:40 IMPRESSION: No acute cardiopulmonary disease. Electronically Signed: Wilma Bermudez MD at 21:28 EDT , Rhythm Strip Rhythm Strip: Sinus Tach Rate: 105 Ectopy: None EKG Initial EKG: Attestation: I personally reviewed and interpreted this EKG as follows: Interpretation: No Acute Injury Pattern, Sinus Tachycardia and S-T Depression (I, aVL w/ T wave inversions) Comments: LV strain pattern Prior EKG tracings: available for review Prior: Unchanged Management Discussion w/another healthcare provider: Hospitalist Discharge Plan Dx/Rx/DC Orders Clinical Impression: Acute dehydration, Acute renal failure, Gastroenteritis, Chest pain, Hyperkalemia, diminished renal excretion Disposition Disposition: Acute Care Hospital [facility]
[2023-01-04 20:28] LABS: Bedside Glucose 286 mg/dL (74-106)
[2023-01-04] MEDS: 0.9% Normal Saline (1000mL) 1,000 ML 1000 ML IV (20:35)
[2023-01-04] MEDS: Metoclopramide 10 MG/2 ML Vial 5 MG IV (20:35)
[2023-01-04] MEDS: Morphine 4 MG/ML Syringe IV (20:36)
--- NOTE | 2023-01-04 20:40 | RAD_ITS ---
STUDY: X-RAY CHEST REASON FOR EXAM: Female, 62 years old. cp/sob TECHNIQUE: Single AP portable view of the chest. COMPARISON: 09/05/2022. FINDINGS: The lungs are clear and expanded. There is no demonstrated pleural abnormality. Normal size heart. Midline sternotomy wires. Normal mediastinum and marie. Normal visualized pulmonary arteries. Normal visualized aortic arch and descending thoracic aorta. There is demineralization of the osseous structures. Normal visualized ribs, clavicles, and shoulders. There is no demonstrated abnormality of the visualized soft tissue structures of the upper abdomen. RAD/Chest 1 View (Portable) IMPRESSION: No acute cardiopulmonary disease. Electronically Signed: Wilma Bermudez MD at 21:28 EDT ,
[2023-01-04 20:45] LABS: Absolute Lymphocyte Count 2.41 X10^3/uL (0.83-4.51); Absolute Neutrophil Count 8.8 X10^3/uL (2.0-7.7); Basophil# 0.06 X10^3/uL; Basophil% 0.5 % (0-1); Eosinophil# 0.08 X10^3/uL; Eosinophils% 0.7 % (0-5); Lymphocyte # 2.41 X10^3/ul (0.83-4.51); Lymphocyte % 20.1 % (19-41); Mean Corp Hgb Conc 31.4 g/dL (32-36); Mean Corpuscular Hgb 26.9 pg (27.0-32.0); Mean Corpuscular Volume 85.7 fL (81-99); Monocyte# 0.56 X10^3/uL; Monocyte% 4.7 % (0-10); NRBC Flagged by Analyzer 0.2 % (0-5); Neutrophil # 8.81 X10^3/uL (2.7-7.7); Neutrophil % 73.3 % (47-70); POSITIVE MORPHOLOGY YES; Platelet Count 291 K/mm3 (150-450); RBC Distribution Width CV 17.6 % (11.6-14.6); Red Blood Count 6.94 M/mm3 (4.2-5.4)
[2023-01-04 20:47] LABS: Hematocrit 59.5 % (37-47)
[2023-01-04 20:48] LABS: Differential Indicated SCAN CRITERIA MET; Hemoglobin 18.7 g/dL (12.0-15.0)
[2023-01-04 21:22] LABS: Anisocytosis RARE; Macrocytosis RARE; Platelet Estimate ADEQUATE (ADEQ); Red Cell Morphology N CHROM NORMAL (NORM C&C)
[2023-01-04 21:23] LABS: Ovalocyte RARE
[2023-01-04 21:54] LABS: Color, Urine Yellow (Yellow); Glucose, Dipstick 250 mg/dl (Normal); Ketone-Dipstick 15 mg/dl (Negative); Leukocyte Esterase-Dipstick 25 /ul (Negative); Nitrite-Dipstick Negative (Negative); Occult Blood-Urine 25 /ul (Negative); Protein-Dipstick 500 mg/dl (Negative); Urine Clarity Sl. Cloudy (Clear); Urine Urobilinogen 1 mg/dl (Normal)
[2023-01-04 21:55] LABS: Urine Bilirubin Dipstick 3 mg/dL (Negative)
[2023-01-04] MEDS: Mag Hydrox/Al Hydrox/Simeth 30 ML UDC PO (22:21)
[2023-01-04] MEDS: Dicyclomine 10 MG Capsule 20 MG PO (22:21)
[2023-01-04] MEDS: Orphenadrine 60 MG/2 ML Ampul 30 MG IV (22:22)
[2023-01-04 22:29] VITALS: PULSE 97; RESP 18
[2023-01-04 22:30] LABS: ALB/GLOB Ratio 0.8 RATIO (0.9-2.4); AST(SGOT) 33 U/L (15-37); Alanine Aminotransfer ALT/SGPT 27 U/L (13-56); Albumin, Serum 4.7 g/dL (3.2-5.0); Alkaline Phosphatase 218 U/L (45-117); Anion Gap 13 (5-15); BUN 42 mg/dL (7-18); BUN/Creat Ratio 12.5 RATIO (10-20); Chloride 95 mmol/L (98-107); Creatinine, Serum 3.35 mg/dL (0.55-1.02); EST Glomerular Filtration Rate 15 mL/min (>60); Est Glom Filt Rate - Afr Amer 18 mL/min (>60); Globulin 6.1 g/dL (2.2-4.2); Glucose 307 mg/dL (74-106); Lipase 73 U/L (13-75); Potassium 6.6 mmol/L (3.5-5.1); Protein, Total 10.8 g/dL (6.4-8.2); Sodium Level 132 mmol/L (136-145); Troponin-I HS 16 pg/mL (3.0-54.0)
[2023-01-04 22:41] VITALS: BP 106/81; PULSE 97; RESP 23; TEMP 36.6; O2SAT 96
--- NOTE | 2023-01-04 22:52 | PCM.HP.STD ---
HPI - General General Date of Admission: 01/04/23 Date of Service: 01/04/23 Chief Complaint: Diarrhea HPI Narrative ASHLEY MÉNDEZ, is a 62 F who presents to the emergency room with chief complaint of diarrhea. Onset of symptoms began acutely today at 2:00 when she noticed copious amounts of fluid in her ileostomy bag. Associated symptoms are nausea and loss of appetite. Patient denies any sick contacts but admits to feeling chills. Patient has significant past medical history of ileostomy status post several surgeries for colitis 40 years ago. Initial laboratory studies are remarkable for elevated potassium (6.6) and creatinine of 3.35 up from a baseline of approximately 1.7. Hemoglobin is also elevated. Patient has responded to antiemetic therapy and is no longer feeling nauseous. She will be admitted for acute renal failure and diarrhea and treated with IV fluids, second set of troponin is pending at the time of my evaluation as well as fecal cultures that have been taken. She is C. difficile negative. [facility] Medical History Acute kidney injury Anxiety Anxiety and depression Arthritis Avascular necrosis of bone of left hip BiPAP (biphasic positive airway pressure) dependence BMI 31.0-31.9,adult CAD (coronary artery disease) Cardiology follow-up encounter Cellulitis, abdominal wall Chronic back pain Chronic diastolic (congestive) heart failure Chronic narcotic use Chronic respiratory failure Chronic respiratory failure with hypoxia, on home O2 therapy CKD (chronic kidney disease), stage IV COPD (chronic obstructive pulmonary disease) Depression with anxiety Diabetic gastroparesis DM2 (diabetes mellitus, type 2) Elevated anti-tissue transglutaminase (tTG) IgA level Fatty liver FCHL (familial combined hyperlipidemia) Former smoker Gastric reflux Gastroparesis High output ileostomy History of CAD (coronary artery disease) History of COVID-19 Hx of diabetic gastroparesis Hyperlipidemia Hypertension Ileostomy present Insulin dependent diabetes mellitus Left shoulder pain Liver mass Loss of hearing Malaise and fatigue Menieres disease MGUS (monoclonal gammopathy of unknown significance) Migraine headache Myoclonic jerking Non-alcoholic fatty liver disease Nonalcoholic steatohepatitis Obesity Obstructive sleep apnea Psoriasis Secondary pulmonary arterial hypertension Short bowel syndrome Smoking greater than 20 pack years Type 2 diabetes mellitus with diabetic polyneuropathy Ulcerative colitis Vitamin B12 deficiency Vitamin D deficiency Walker as ambulation aid Wears glasses Home Medications aspirin 81 mg tablet,delayed release 81 mg PO DAILY Check with primary doctor 04/08/21 [History Last Taken 05/27/22] diphenoxylate-atropine 2.5 mg-0.025 mg tablet (Lomotil) 1 tab PO TID PRN diarrhea #90 tabs 05/19/21 [Rx Last Taken 05/17/22] duloxetine 30 mg capsule,delayed release 90 mg PO DAILY Check with primary doctor 10/06/21 [History Last Taken 05/27/22] hyoscyamine sulfate 0.125 mg tablet 0.125 mg PO Q6H PRN dyspepsia #60 tabs 11/04/21 [Rx Last Taken 05/25/22] Wheel Chair 11/15/21 [History Last Taken Unknown] blood sugar diagnostic (True Metrix Glucose Test Strip) 11/15/21 [History Last Taken Unknown] blood-glucose meter,continuous (Dexcom G6 Chief Lifestyle Officer) 11/15/21 [History Last Taken Unknown] pen needle, diabetic 32 gauge x 5/32 (BD Ultra-Fine Key Pen Needle) 11/15/21 [History Last Taken Unknown] buprenorphine 10 mcg/hour weekly transdermal patch 1 patch transdermal Q7D pain 11/18/21 [History Last Taken 05/23/22] loperamide 2 mg capsule (Imodium A-D) 2 mg PO Q6H PRN loose stool #20 caps 11/18/21 [Rx Last Taken 05/14/22] nitroglycerin 0.4 mg sublingual tablet 0.4 mg sublingual Q5-15M PRN chest pain #25 tabs 11/20/21 [Rx Last Taken Unknown] ostomy supplies #1 ea 02/13/22 [Rx Last Taken Unknown] dicyclomine 10 mg capsule 20 mg PO DAILY Check with primary doctor 03/14/22 [History Last Taken 05/27/22] clopidogrel 75 mg tablet 75 mg PO DAILY Check with primary doctor #90 tabs 03/16/22 [Rx Last Taken 05/27/22] pantoprazole 40 mg tablet,delayed release See Rx Instructions .Route .COMPLEX #28 tabs 04/07/22 [Rx Last Taken 05/27/22] melatonin 3 mg tablet 5 mg PO QHS PRN PRN Insomnia 07/06/22 [History Last Taken Unknown] lamotrigine 100 mg tablet 100 mg PO DAILY 07/20/22 [History Last Taken Unknown] metoprolol tartrate 25 mg tablet 25 mg PO .COMPLEX bp #180 tabs 07/28/22 [Rx Last Taken Unknown] insulin pump cart,automated,BT (Omnipod 5 G6 Pods (Gen 5) subcutaneous cartridge) #45 ea 07/31/22 [Rx Last Taken Unknown] atorvastatin 80 mg tablet 80 mg PO QHS CHOLESTEROL LOWERING #90 tabs 08/04/22 [Rx Last Taken Unknown] blood-glucose transmitter (Dexcom G6 Transmitter device) #1 ea 08/07/22 [Rx Last Taken Unknown] dicyclomine 10 mg capsule 10 mg PO QHS 09/01/22 [History Last Taken Unknown] metoprolol tartrate 50 mg tablet 50 mg PO .COMPLEX Check with primary doctor 09/02/22 [History Last Taken Unknown] Handicap Placard #1 ea 09/16/22 [Rx Last Taken Unknown] dapagliflozin propanediol 10 mg tablet (Farxiga) 10 mg PO DAILY #90 tabs 09/16/22 [Rx Last Taken Unknown] triamcinolone acetonide 0.1 % topical cream 1 applic topical BID PRN rash #453.6 grams 09/16/22 [Rx Last Taken Unknown] cholecalciferol (vitamin D3) 50 mcg (2,000 unit) capsule 50 mcg PO DAILY 11/10/22 [History Last Taken Unknown] isosorbide dinitrate 30 mg tablet 30 mg PO BID heart #60 tabs 12/11/22 [Rx Last Taken Unknown] blood-glucose sensor (Dexcom G6 Sensor device) #9 ea 12/14/22 [Rx Last Taken Unknown] pregabalin 75 mg capsule 75 mg PO BID pain #60 caps 12/15/22 [Rx Last Taken Unknown] ursodiol 300 mg capsule 300 mg PO BID Check with primary doctor 12/17/22 [History Last Taken Unknown] insulin lispro 200 unit/mL (3 mL) subcutaneous pen (Humalog KwikPen U-200 Insulin) 130 unit subcut .continuous 01/04/23 [History Last Taken Unknown] Allergy/AdvReac Type Severity Reaction Status Date / Time ciprofloxacin Allergy Intermediate Swelling Verified 01/04/23 20:07 cinnamon [Cinnamon] Allergy Anaphylaxis Verified 01/04/23 20:07 Influenza Virus Vaccines Allergy Shortness Verified 01/04/23 20:07 of breath liraglutide [From Victoza] Allergy Anaphylaxis Verified 01/04/23 20:07 metformin [From Glucophage] Allergy NEEDS Verified 01/04/23 20:07 FOLLOW-UP metronidazole [From Flagyl] Allergy Hives Verified 01/04/23 20:07 Metronidazole HCl Allergy Hives Verified 01/04/23 20:07 [From Flagyl] Penicillins Allergy Hives Verified 01/04/23 20:07 Sulfa (Sulfonamide Allergy Hives Verified 01/04/23 20:07 Antibiotics) aripiprazole [From Abilify] AdvReac hallucinati Verified 01/04/23 20:07 ons codeine AdvReac Stops Verified 01/04/23 20:07 Ileostomy metformin HCl AdvReac Nausea Verified 01/04/23 20:07 [From Glucophage] ranolazine AdvReac Nausea/Vom/ Verified 01/04/23 20:07 Diarrhea [id number] Reductase AdvReac Nausea/joints Verified 01/04/23 20:07 Inhibitor ache [Pzhevyf-Rjr-Wll Reductase Inhibitor] Family History Mother CVA (cerebral vascular accident) Diabetes Brother Heart disease of CAD at 65 Myocardial infarction Pancreatitis Father Cancer lymphomia Lymphoma Grandmother Myocardial infarction of [place] in her 70s Sister COPD (chronic obstructive pulmonary disease) Surgical History H/O colectomy H/O coronary artery bypass surgery (05/18/12) H/O sinus surgery H/O total hysterectomy history closed fissure History of History of cardiac catheterization History of cholecystectomy History of coronary artery stent placement (01/12/18) ileostomy Ileostomy status left thumb surgery Status post total hip replacement, left Social History household members: none Smoking Status: Former smoker quit date: 03/08/12 how long ago did patient quit smoking: quit in 2012; 0.5-1ppd x 30yrs alcohol intake: never substance use type: does not use diet: diabetic caffeine: No eating out: 1-3 times/week what type of physical activity do you participate in: none seatbelt use: always do you feel safe at home: Yes ROS Constitutional Constitutional: Reports chills; Denies fever(s) Eyes Eyes: Denies blurry vision ENT HEENT: Denies dysphagia Cardiovascular Cardiovascular: Reports chest pain Respiratory/Chest Respiratory/Chest: Denies shortness of breath at rest Gastrointestinal Gastrointestinal: Reports abdominal pain, diarrhea, nausea and vomiting Genitourinary Genitourinary: Denies dysuria Musculoskeletal Musculoskeletal: Denies back pain Integumentary Integumentary: Denies dry skin Neurologic Neurologic: Denies abnormal speech Psychiatric Psychiatric: Denies anxiety Endocrine Endocrinology: Denies polydipsia Vital Signs Vital Signs Vital Signs: 01/04/23 20:01 01/04/23 20:10 01/04/23 22:29 Temperature 84.3 F L 97.1 F L Temperature Source Temporal Axillary Pulse Rate 109 H 103 H 97 Respiratory Rate 26 H 22 H 18 Blood Pressure 130/79 H 130/079 H Blood Pressure Mean 96 96 Pulse Ox 92 92 Oxygen Delivery Method Room Air Room Air 01/04/23 22:41 Temperature 97.9 F Temperature Source Pulse Rate 97 Respiratory Rate 23 H Blood Pressure 106/81 H Blood Pressure Mean 89 Pulse Ox 96 Oxygen Delivery Method Weight Weight: 200 lb 9.93 oz Body Mass Index (BMI) 31.4 Physical Exam Const oriented x3 General Appearance: cooperative HEENT normocephalic and head/scalp atraumatic Neck no lymphadenopathy Lymph Lymphatic: no lymphadenopathy noted Resp normal respiratory effort, normal air movement and clear to auscultation bilaterally Cardio regular rate, regular rhythm, S1 normal heart sound, S2 normal heart sound, no murmurs, no rub and no gallops GI soft to palpation and non-distended Palpation: tender epigastric; Negative for guarding or rigid Extremity no clubbing, cyanosis or edema Skin General Skin Exam: no breakdown Neuro no focal motor deficits and no sensory deficits noted Psych cooperative and affect normal Appearance: appropriate Results Lab / Micro Data 01/04/23 20:29 01/04/23 22:00 Labs: Laboratory Results - last 24 hr 01/04/23 20:07: POC Glucose 286 H 01/04/23 20:29: WBC 12.0 H, RBC 6.94 H, Hgb 18.7 H*, Hct 59.5 H, MCV 85.7, MCH 26.9 L, MCHC 31.4 L, RDW Std Deviation 49.0 H, RDW Coeff of Jan 17.6 H, Plt Count 291, MPV 13.0 H, Immature Gran % (Auto) 0.700, Neut % (Auto) 73.3 H, Lymph % (Auto) 20.1, Loving % (Auto) 4.7, Eos % (Auto) 0.7, Baso % (Auto) 0.5, Absolute Neuts (auto) 8.8 H, Absolute Lymphs (auto) 2.41, Nucleated RBC % 0.2, Diff Path Review May foll, Platelet Estimate ADEQUATE, RBC Morphology N CHROM, Anisocytosis RARE, Macrocytosis RARE, Ovalocytes RARE, Sodium Cancelled, Potassium Cancelled, Chloride Cancelled, Carbon Dioxide Cancelled, Anion Gap Cancelled, BUN Cancelled, Creatinine Cancelled, Estim Creat Clear Calc Cancelled, Est GFR (MDRD) Af Amer Cancelled, Est GFR (MDRD) Non-Af Cancelled, BUN/Creatinine Ratio Cancelled, Glucose Cancelled, Calcium Cancelled, Total Bilirubin Cancelled, AST Cancelled, ALT Cancelled, Alkaline Phosphatase Cancelled, Troponin I High Sens Cancelled, Total Protein Cancelled, Albumin Cancelled, Globulin Cancelled, Albumin/Globulin Ratio Cancelled, Lipase Cancelled 01/04/23 20:50: Urine Color Yellow, Urine Clarity Sl. Cloudy, Urine pH 5.0, Ur Specific [place] 1.030, Urine Protein 500 H, Urine Glucose (UA) 250 H, Urine Ketones 15 H, Urine Occult Blood 25 H, Urine Nitrite Negative, Urine Bilirubin 3 H, Urine Urobilinogen 1 H, Ur Leukocyte Esterase 25 H, Urine RBC Cancelled, Urine WBC Cancelled, Ur Squamous Epith Cells Cancelled, Ur Transition Epith Cell Cancelled, Ur Renal Epithelial Cell Cancelled, Calcium Oxalate Crystal Cancelled, Uric Acid Crystals Cancelled, Triple Phos Crystals Cancelled, Other Crystals Cancelled, Amorphous Sediment Cancelled, Urine Bacteria Cancelled, Hyaline Casts Cancelled, Fine Granular Casts Cancelled, Coarse Granular Casts Cancelled, Waxy Casts Cancelled, RBC Casts Cancelled, WBC Casts Cancelled, Urine Mucus Cancelled, Urine Trichomonas Cancelled, Urine Yeast Cancelled 01/04/23 22:00: Sodium 132 L, Potassium 6.6 H*, Chloride 95 L, Carbon Dioxide 24.0, Anion Gap 13, BUN 42 H, Creatinine 3.35 H, Estim Creat Clear Calc 16.50, Est GFR (MDRD) Af Amer 18 L, Est GFR (MDRD) Non-Af 15 L, BUN/Creatinine Ratio 12.5, Glucose 307 H, Calcium 12.0 H, Total Bilirubin 1.40 H, AST 33, ALT 27, Alkaline Phosphatase 218 H, Troponin I High Sens 16, Total Protein 10.8 H, Albumin 4.7, Globulin 6.1 H, Albumin/Globulin Ratio 0.8 L, Lipase 73 Micro: Microbiology 01/04/23 20:32 Stool C. difficile DNA Amplification - Final 01/04/23 20:32 Stool Stool Lactoferrin - Final Rhythm Strip Rhythm Strip: Sinus Tach Rate: 105 Ectopy: None Radiology Impression Chest X-Ray 01/04/23 20:40 IMPRESSION: No acute cardiopulmonary disease. Electronically Signed: Wilma Bermudez MD at 21:28 EDT Reading Location ID and State: [facility] / ID , Service support , Assessment & Plan Assessment/Plan (1) Hyperkalemia, diminished renal excretion: (2) Chest pain: (3) Gastroenteritis: (4) Acute renal failure: (5) Acute dehydration: (6) Obesity: QUALIFIERS: Obesity type: due to excess calories Obesity classification: adult class 1 (BMI 30 - 34.9) Serious obesity comorbidity presence: with serious comorbidity Body mass index: BMI 31.0-31.9 Qualified Code(s): E66.09 - Other obesity due to excess calories; Z68.31 - Body mass index [BMI] 31.0-31.9, adult (7) DM2 (diabetes mellitus, type 2): QUALIFIERS: Diabetes mellitus complication status: with hyperglycemia Diabetes mellitus prison insulin use: with prison use Qualified Code(s): E11.65 - Type 2 diabetes mellitus with hyperglycemia; Z79.4 - 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 Patient will be given IV normal saline at a rate of 125 cc/h, repeat CBC, BMP in a.m. 2. Hyperkalemia?patient was given a dose of Kayexalate in the emergency room we will to recheck BMP in the morning 3. Chest pain?first set of troponin is negative she has a second set of troponin ordered and if negative will discontinue cardiac work-up 4. Diabetes we will hold p.o. meds tonight due to renal failure and dehydration and monitor BMP and adjust in a.m. 5. DVT prophylaxis?SCDs due to renal failure Charges/Coding Visit Charges Inpatient E&M: 86518 Init Hosp L2
[2023-01-04 23:15] VITALS: BMI 30.4
[2023-01-04 23:20] VITALS: BP 101/71; PULSE 93; RESP 21; TEMP 36; O2SAT 96
[2023-01-04] MEDS: Sodium Polystyrene Sulfonate 15 GM/60 ML UDC PO (23:35)
[2023-01-04] MEDS: 0.9% Normal Saline (1000mL) 1,000 ML 125 ML IV (23:35)
[2023-01-05] VITALS (8 sets, daily range): BP systolic 83–127; BP diastolic 60–70; PULSE 98–110; RESP 17–22; TEMP 36.1–37.7; O2SAT 94–100
[2023-01-05 03:45] LABS: Absolute Lymphocyte Count 2.12 X10^3/uL (0.83-4.51); Absolute Neutrophil Count 16.5 X10^3/uL (2.0-7.7); Basophil# 0.03 X10^3/uL; Basophil% 0.1 % (0-1); Eosinophil# 0.15 X10^3/uL; Eosinophils% 0.7 % (0-5); Hematocrit 52.3 % (37-47); Hemoglobin 16.4 g/dL (12.0-15.0); Lymphocyte # 2.12 X10^3/ul (0.83-4.51); Lymphocyte % 10.3 % (19-41); Mean Corp Hgb Conc 31.4 g/dL (32-36); Mean Corpuscular Hgb 27.4 pg (27.0-32.0); Mean Corpuscular Volume 87.5 fL (81-99); Mean Platelet Vol. 12.7 fl (6.2-12.0); Monocyte# 1.55 X10^3/uL; Monocyte% 7.5 % (0-10); NRBC Flagged by Analyzer 0.2 % (0-5); Neutrophil # 16.51 X10^3/uL (2.7-7.7); Neutrophil % 80.5 % (47-70); POSITIVE DIFFERENTIAL YES; POSITIVE MORPHOLOGY YES; Platelet Count 253 K/mm3 (150-450); RBC Distribution Width SD 51.2 fl (35.1-43.9); Red Blood Count 5.98 M/mm3 (4.2-5.4); White Blood Count 20.6 K/mm3 (4.4-11.0)
[2023-01-05 03:48] LABS: Differential Indicated SCAN CRITERIA MET
[2023-01-05 04:09] LABS: Anion Gap 10 (5-15); BUN 45 mg/dL (7-18); BUN/Creat Ratio 11.6 RATIO (10-20); Calcium,Total 10.1 mg/dL (8.5-10.1); Chloride 104 mmol/L (98-107); Creatinine, Serum 3.88 mg/dL (0.55-1.02); EST Glomerular Filtration Rate 12 mL/min (>60); Est Glom Filt Rate - Afr Amer 15 mL/min (>60); Estimated Creatinine Clearance 14.24 ml/min; Glucose 288 mg/dL (74-106); Potassium 5.8 mmol/L (3.5-5.1); Sodium Level 130 mmol/L (136-145)
[2023-01-05 04:39] LABS: Differential Comment SCANNED; Platelet Morphology LARGE
[2023-01-05] MEDS: 0.9% Saline Lock 10 ML Syringe IV (06:58)
[2023-01-05] MEDS: 0.9% Normal Saline (1000mL) 1,000 ML 125 ML IV (06:58)
[2023-01-05 07:03] LABS: Troponin-I HS 154 pg/mL (3.0-54.0)
--- NOTE | 2023-01-05 07:30 | ECHOCS_ITS ---
Reason For Study: elevated troponins Procedure This was a 2D Doppler, Color Flow transthoracic echocardiogram. The study was technically difficult. The study was technically limited. Due to body habitus. Exam performed portable in ICU/CCU. Left Ventricle Normal LV size. Left ventricular systolic function is normal. The estimated ejection fraction is 65 %. No regional wall motion abnormalities noted. Right Ventricle Normal RV size. Great Vessels The aortic root is not well visualized. Pericardium/Pleural Epicardial fat. Medication Diluted definity 4.0ml given slow IV push to enhance endocardial definition. MMode/2D Measurements & Calculations LVIDd: 4.2 cm IVSd: 1.2 cm Ao root diam: 3.1 cm LVIDs: 3.0 cm LVPWd: 1.2 cm RVDd: 2.5 cm FS: 28.3 % LAV(MOD-sp4): 44.3 ml LA dimension(2D): 3.0 cm LA A4 area: 17.2 cm2 Time Measurements MV dec time: 0.18 sec Doppler Measurements & Calculations MV E max los: 44.4 cm/sec Lat Peak E' Los: 6.4 cm/sec Med Peak E' Los: 4.7 cm/sec MV A max los: 78.0 cm/sec E/E' lat: 6.9 E/E' med: 9.5 MV E/A: 0.57 MV V2 max: 90.8 cm/sec Ao V2 max: 140.0 cm/sec LV V1 max: 96.9 cm/sec MV max P.3 mmHg Ao max P.9 mmHg LV V1 max P.8 mmHg MV V2 mean: 52.9 cm/sec Ao V2 mean: 96.9 cm/sec LV V1 mean P.3 mmHg MV mean P.3 mmHg Ao mean P.2 mmHg LV V1 mean: 72.5 cm/sec MV V2 VTI: 13.5 cm Ao V2 VTI: 20.1 cm LV V1 VTI: 16.8 cm AV (velocity ratio): 0.84 PA V2 max: 108.4 cm/sec PA V2 mean: 75.9 cm/sec ECHO/Echo Complete W/ Contrast Interpretation Summary Normal LV size. Left ventricular systolic function is normal. The estimated ejection fraction is 65 %. Contrast injection was performed. Ordering Physician: Audrey Vail Referring Physician: Mala Mcgrath Performed By: Brittany Chapman, LAURIE, RVT
[2023-01-05] MEDS: Sodium Polystyrene Sulfonate 15 GM/60 ML UDC 30 GM PO (09:07)
[2023-01-05] MEDS: Ondansetron 4 MG/2 ML Vial IV (09:14)
--- NOTE | 2023-01-05 10:36 | CON.PCM.RE_ITS ---
Documented by User: DERIC Fam 01/05/23 10:56 Assessment & Plan Assessment/Plan (1) Acute renal failure: (2) CKD (chronic kidney disease), stage IV: (3) Metabolic acidosis: PLAN: Plan This is a pleasant 62-year-old female with past medical history significant for ulcerative colitis status post proctocolectomy with J-pouch, proximal diversion with loop ileostomy with 270 cm small bowel remaining complicated by frequent high output, type 2 diabetes mellitus with associated gastroparesis, MGUS, COPD, CAD status post PCI and CABG x4, hypertension, hyperlipidemia, depression and anxiety and CKD who presented to emergency room with complaints of feeling unwell, abdominal cramping and noticing large amount of watery green output from ostomy bag. Nephrology consulted in view of rising creatinine. Patient has history of CKD stage III/IV with baseline creatinine ranging around 1.7 mg/dL. Yesterday in the emergency room creatinine 3.35, potassium 6.6. Patient received Kayexalate, total 45gms. Started on IV fluids, today her creatinine is 3.88 and potassium is 5.8. CXR clear. At this time there is no acute indication for CURTAIN FRAMER. Potassium slight improvement this morning, her bicarb is 16 therefore we will give 2 amps of IV bicarb now. Metabolic acidosis likely form high stool output and RALPH. Hyperkalemia possibly from RALPH. Recommend continue with IV fl uids for volume expansion. Patient has been having high ostomy output since admission, so far today 1.9L. No urine output at this time, Lira was placed. We will obtain renal ultrasound. Quite possibly RALPH prerenal from significant volume depletion, also to note blood pressures low which could also be contributing to RALPH. Discussed with patient no acute indication for CURTAIN FRAMER at this time however if renal function and/or potassium worsens patient may need dialysis. Questions were answered. Further orders forthcoming as hospitalization evolves, thank you for allowing us to participate in the care of Ms. Artis. HPI Consult Data Date of Consult: 01/05/23 HPI Narrative HPI Narrative: ASHLEY ARTIS, is a 62 F with past history significant for ulcerative colitis status post proctocolectomy with J-pouch, proximal diversion with loop ileostomy with 270 cm small bowel remaining complicated by frequent high output, type 2 diabetes mellitus with associated gastroparesis, MGUS, COPD, CAD status post PCI and CABG x4, hypertension, hyperlipidemia, depression and anxiety CKD who presented to emergency room yesterday with complaints of feeling unwell, abdominal cramping and noticing large amount of watery green output from ostomy bag. Lab work in the emergency room showed creatinine 3.35, potassium 6.6, sodium 132 and bicarb 24. Patient was admitted for further evaluation and treatment. Nephrology consulted in view of hyperkalemia and rising serum creatinine. Patient has history of CKD and has been followed by Dr. Rico. Patient denies any recent NSAIDs, denies any recent oral potassium supplements, no recent ROSA ISELA or ARB's. Patient reports she had been feeling dizzy over the weekend, noticed stool from ostomy bag to be loose on Wednesday night and then watery beginning Wednesday morning. [facility] Medical History Acute kidney injury Anxiety Anxiety and depression Arthritis Avascular necrosis of bone of left hip BiPAP (biphasic positive airway pressure) dependence BMI 31.0-31.9,adult CAD (coronary artery disease) Cardiology follow-up encounter Cellulitis, abdominal wall Chronic back pain Chronic diastolic (congestive) heart failure Chronic narcotic use Chronic respiratory failure Chronic respiratory failure with hypoxia, on home O2 therapy CKD (chronic kidney disease), stage IV COPD (chronic obstructive pulmonary disease) Depression with anxiety Diabetic gastroparesis DM2 (diabetes mellitus, type 2) Elevated anti-tissue transglutaminase (tTG) IgA level Fatty liver FCHL (familial combined hyperlipidemia) Former smoker Gastric reflux Gastroparesis High output ileostomy History of CAD (coronary artery disease) History of COVID-19 Hx of diabetic gastroparesis Hyperlipidemia Hypertension Ileostomy present Insulin dependent diabetes mellitus Left shoulder pain Liver mass Loss of hearing Malaise and fatigue Menieres disease MGUS (monoclonal gammopathy of unknown significance) Migraine headache Myoclonic jerking Non-alcoholic fatty liver disease Nonalcoholic steatohepatitis Obesity Obstructive sleep apnea Psoriasis Secondary pulmonary arterial hypertension Short bowel syndrome Smoking greater than 20 pack years Type 2 diabetes mellitus with diabetic polyneuropathy Ulcerative colitis Vitamin B12 deficiency Vitamin D deficiency Walker as ambulation aid Wears glasses Home Medications aspirin 81 mg tablet,delayed release 81 mg PO DAILY Check with primary doctor 04/08/21 [History Last Taken 05/27/22] diphenoxylate-atropine 2.5 mg-0.025 mg tablet (Lomotil) 1 tab PO TID PRN diarrhea #90 tabs 05/19/21 [Rx Last Taken 05/17/22] duloxetine 30 mg capsule,delayed release 90 mg PO DAILY Check with primary doctor 10/06/21 [History Last Taken 05/27/22] hyoscyamine sulfate 0.125 mg tablet 0.125 mg PO Q6H PRN dyspepsia #60 tabs 11/04/21 [Rx Last Taken 05/25/22] Wheel Chair 11/15/21 [History Last Taken Unknown] blood sugar diagnostic (True Metrix Glucose Test Strip) 11/15/21 [History Last Taken Unknown] blood-glucose meter,continuous (Dexcom G6 Silver Solderer) 11/15/21 [History Last Taken Unknown] pen needle, diabetic 32 gauge x 5/32 (BD Ultra-Fine Key Pen Needle) 11/15/21 [History Last Taken Unknown] buprenorphine 10 mcg/hour weekly transdermal patch 1 patch transdermal Q7D pain 11/18/21 [History Last Taken 05/23/22] loperamide 2 mg capsule (Imodium A-D) 2 mg PO Q6H PRN loose stool #20 caps 11/18/21 [Rx Last Taken 05/14/22] nitroglycerin 0.4 mg sublingual tablet 0.4 mg sublingual Q5-15M PRN chest pain #25 tabs 11/20/21 [Rx Last Taken Unknown] ostomy supplies #1 ea 02/13/22 [Rx Last Taken Unknown] dicyclomine 10 mg capsule 20 mg PO DAILY Check with primary doctor 03/14/22 [History Last Taken 05/27/22] clopidogrel 75 mg tablet 75 mg PO DAILY Check with primary doctor #90 tabs 03/16/22 [Rx Last Taken 05/27/22] pantoprazole 40 mg tablet,delayed release See Rx Instructions .Route .COMPLEX #28 tabs 04/07/22 [Rx Last Taken 05/27/22] melatonin 3 mg tablet 5 mg PO QHS PRN PRN Insomnia 07/06/22 [History Last Taken Unknown] lamotrigine 100 mg tablet 100 mg PO DAILY 07/20/22 [History Last Taken Unknown] metoprolol tartrate 25 mg tablet 25 mg PO .COMPLEX bp #180 tabs 07/28/22 [Rx Last Taken Unknown] insulin pump cart,automated,BT (Omnipod 5 G6 Pods (Gen 5) subcutaneous cartridge) #45 ea 07/31/22 [Rx Last Taken Unknown] atorvastatin 80 mg tablet 80 mg PO QHS CHOLESTEROL LOWERING #90 tabs 08/04/22 [Rx Last Taken Unknown] blood-glucose transmitter (Dexcom G6 Transmitter device) #1 ea 08/07/22 [Rx Last Taken Unknown] dicyclomine 10 mg capsule 10 mg PO QHS 09/01/22 [History Last Taken Unknown] metoprolol tartrate 50 mg tablet 50 mg PO .COMPLEX Check with primary doctor 09/02/22 [History Last Taken Unknown] Handicap Placard #1 ea 09/16/22 [Rx Last Taken Unknown] dapagliflozin propanediol 10 mg tablet (Farxiga) 10 mg PO DAILY #90 tabs 09/05 04/30 [Rx Last Taken Unknown] triamcinolone acetonide 0.1 % topical cream 1 applic topical BID PRN rash #453.6 grams 09/16/22 [Rx Last Taken Unknown] cholecalciferol (vitamin D3) 50 mcg (2,000 unit) capsule 50 mcg PO DAILY 11/10/22 [History Last Taken Unknown] isosorbide dinitrate 30 mg tablet 30 mg PO BID heart #60 tabs 12/11/22 [Rx Last Taken Unknown] blood-glucose sensor (Dexcom G6 Sensor device) #9 ea 12/14/22 [Rx Last Taken Unknown] pregabalin 75 mg capsule 75 mg PO BID pain #60 caps 12/15/22 [Rx Last Taken Unknown] ursodiol 300 mg capsule 300 mg PO BID Check with primary doctor 12/17/22 [ History Last Taken Unknown] insulin lispro 200 unit/mL (3 mL) subcutaneous pen (Humalog KwikPen U-200 Insulin) 130 unit subcut CONT diabetes 01/04/23 [History Last Taken Unknown] Allergy/AdvReac Type Severity Reaction Status Date / Time ciprofloxacin Allergy Intermediate Swelling Verified 01/04/23 20:07 cinnamon [Cinnamon] Allergy Anaphylaxis Verified 01/04/23 20:07 Influenza Virus Vaccines Allergy Shortness Verified 01/04/23 20:07 of breath liraglutide [From Victoza] Allergy Anaphylaxis Verified 01/04/23 20:07 metformin [From Glucophage] Allergy NEEDS Verified 01/04/23 20:07 FOLLOW-UP metronidazole [From Flagyl] Allergy Hives Verified 01/04/23 20:07 Metronidazole HCl Allergy Hives Verified 01/04/23 20:07 [From Flagyl] Penicillins Allergy Hives Verified 01/04/23 20:07 Sulfa (Sulfonamide Allergy Hives Verified 01/04/23 20:07 Antibiotics) aripiprazole [From Abilify] AdvReac hallucinati Verified 01/04/23 20:07 ons codeine AdvReac Stops Verified 01/04/23 20:07 Ileostomy metformin HCl AdvReac Nausea Verified 01/04/23 20:07 [From Glucophage] ranolazine AdvReac Nausea/Vom/ Verified 01/04/23 20:07 Diarrhea [id number] Reductase AdvReac Nausea/joints Verified 01/04/23 20:07 Inhibitor ache Family History Mother CVA (cerebral vascular accident) Diabetes Brother Heart disease of CAD at 65 Myocardial infarction Pancreatitis Father Cancer lymphomia Lymphoma Grandmother Myocardial infarction of [place] in her 70s Sister COPD (chronic obstructive pulmonary disease) Surgical History H/O colectomy H/O coronary artery bypass surgery (05/18/12) H/O sinus surgery H/O total hysterectomy history closed fissure History of History of cardiac catheterization History of cholecystectomy History of coronary artery stent placement (01/12/18) ileostomy Ileostomy status left thumb surgery Status post total hip replacement, left Social History household members: none Smoking Status: Former smoker quit date: 03/08/12 how long ago did patient quit smoking: quit in 2013; 0.5-1ppd x 30yrs alcohol intake: never substance use type: does not use diet: diabetic caffeine: No eating out: 1-3 times/week what type of physical activity do you participate in: none seatbelt use: always do you feel safe at home: Yes ROS ROS Narrative As in HPI and past medical history Physical Exam Narrative Alert and oriented x3, no apparent distress Oral mucosa dry, lips dry S1, S2, RRR Lung sounds clear Abdomen soft, ostomy bag with green watery stool No edema Lira with no urine noted in tubing or bag Lab / Micro Data 01/05/23 03:35 01/05/23 14:00 Labs: Laboratory Results - last 24 hr 01/04/23 20:07: POC Glucose 286 H 01/04/23 20:29: WBC 12.0 H, RBC 6.94 H, Hgb 18.7 H*, Hct 59.5 H, MCV 85.7, MCH 26.9 L, MCHC 31.4 L, RDW Std Deviation 49.0 H, RDW Coeff of Jan 17.6 H, Plt Count 291, MPV 13.0 H, Immature Gran % (Auto) 0.700, Neut % (Auto) 73.3 H, Lymph % (Auto) 20.1, [place] % (Auto) 4.7, Eos % (Auto) 0.7, Baso % (Auto) 0.5, Absolute Neuts (auto) 8.8 H, Absolute Lymphs (auto) 2.41, Nucleated RBC % 0.2, Diff Path Review May foll, Platelet Estimate ADEQUATE, RBC Morphology N CHROM, Anisocytosis RARE, Macrocytosis RARE, Ovalocytes RARE, Sodium Cancelled, Potassium Cancelled, Chloride Cancelled, Carbon Dioxide Cancelled, Anion Gap Cancelled, BUN Cancelled, Creatinine Cancelled, Estim Creat Clear Calc Cancelled, Est GFR (MDRD) Af Amer Cancelled, Est GFR (MDRD) Non-Af Cancelled, BUN/Creatinine Ratio Cancelled, Glucose Cancelled, Calcium Cancelled, Total Bilirubin Cancelled, AST Cancelled, ALT Cancelled, Alkaline Phosphatase Cancelled, Troponin I High Sens Cancelled, Total Protein Cancelled, Albumin Cancelled, Globulin Cancelled, Albumin/Globulin Ratio Cancelled, Lipase Cancelled 01/04/23 20:50: Urine Color Yellow, Urine Clarity Sl. Cloudy, Urine pH 5.0, Ur Specific [place] 1.030, Urine Protein 500 H, Urine Glucose (UA) 250 H, Urine Ketones 15 H, Urine Occult Blood 25 H, Urine Nitrite Negative, Urine Bilirubin 3 H, Urine Urobilinogen 1 H, Ur Leukocyte Esterase 25 H, Urine RBC Cancelled, Urine WBC Cancelled, Ur Squamous Epith Cells Cancelled, Ur Transition Epith Cell Cancelled, Ur Renal Epithelial Cell Cancelled, Calcium Oxalate Crystal Cancelled, Uric Acid Crystals Cancelled, Triple Phos Crystals Cancelled, Other Crystals Cancelled, Amorphous Sediment Cancelled, Urine Bacteria Cancelled, Hyaline Casts Cancelled, Fine Granular Casts Cancelled, Coarse Granular Casts Cancelled, Waxy Casts Cancelled, RBC Casts Cancelled, WBC Casts Cancelled, Urine Mucus Cancelled, Urine Trichomonas Cancelled, Urine Yeast Cancelled 01/04/23 22:00: Sodium 132 L, Potassium 6.6 H*, Chloride 95 L, Carbon Dioxide 24.0, Anion Gap 13, BUN 42 H, Creatinine 3.35 H, Estim Creat Clear Calc 16.50, Est GFR (MDRD) Af Amer 18 L, Est GFR (MDRD) Non-Af 15 L, BUN/Creatinine Ratio 12.5, Glucose 307 H, Calcium 12.0 H, Total Bilirubin 1.40 H, AST 33, ALT 27, Alkaline Phosphatase 218 H, Troponin I High Sens 16, Total Protein 10.8 H, Albumin 4.7, Globulin 6.1 H, Albumin/Globulin Ratio 0.8 L, Lipase 73 01/05/23 03:35: WBC 20.6 H, RBC 5.98 H, Hgb 16.4 H, Hct 52.3 H, MCV 87.5, MCH 27.4, MCHC 31.4 L, RDW Std Deviation 51.2 H, RDW Coeff of Jan 17.0 H, Plt Count 253, MPV 12.7 H, Immature Gran % (Auto) 0.900, Neut % (Auto) 80.5 H, Lymph % (Auto) 10.3 L, [place] % (Auto) 7.5, Eos % (Auto) 0.7, Baso % (Auto) 0.1, Absolute Neuts (auto) 16.5 H, Absolute Lymphs (auto) 2.12, Nucleated RBC % 0.2, Differential Comment SCANNED, Diff Path Review July destin, Plt Morphology Comment LARGE, Sodium 130 L, Potassium 5.8 H, Chloride 104, Carbon Dioxide 16.0 L, Anion Gap 10, BUN 45 H, Creatinine 3.88 H, Estim Creat Clear Calc 14.24, Est GFR (MDRD) Af Amer 15 L, Est GFR (MDRD) Non-Af 12 L, BUN/Creatinine Ratio 11.6, Glucose 288 H, Calcium 10.1, Troponin I High Sens 154 H* Micro: Microbiology 01/04/23 20:32 Stool C. difficile DNA Amplification - Final 01/04/23 20:32 Stool Stool Lactoferrin - Final Rhythm Strip Rhythm Strip: Sinus Tach Rate: 105 Ectopy: None Radiology Impression Chest X-Ray 01/04/23 20:40 IMPRESSION: No acute cardiopulmonary disease. Electronically Signed: Wilma Bermudez MD at 21:28 EDT , Documented by User: Dr. Claudia Rico MD 01/05/23 15:24 Assessment & Plan Assessment/Plan (1) Acute renal failure: (2) CKD (chronic kidney disease), stage IV: (3) Metabolic acidosis: PLAN: Plan This is a pleasant 62-year-old female with past medical history significant for ulcerative colitis status post proctocolectomy with J-pouch, proximal diversion with loop ileostomy with 270 cm small bowel remaining complicated by frequent high output, type 2 diabetes mellitus with associated gastroparesis, MGUS, COPD, CAD status post PCI and CABG x4, hypertension, hyperlipidemia, depression and anxiety and CKD who presented to emergency room with complaints of feeling unwell, abdominal cramping and noticing large amount of watery green output from ostomy bag. Nephrology consulted in view of rising creatinine. Patient has history of CKD stage III/IV with baseline creatinine ranging around 1.7 mg/dL. Yesterday in the emergency room creatinine 3.35, potassium 6.6. Patient received Kayexalate, total 45gms. Started on IV fluids, today her creatinine is 3.88 and potassium is 5.8. CXR clear. At this time there is no acute indication for CURTAIN FRAMER. Potassium slight improvement this morning, her bicarb is 16 therefore we will give 2 amps of IV bicarb now. Metabolic acidosis likely form high stool output and RALPH. Hyperkalemia possibly from RALPH. Recommend continue with IV fluids for volume expansion. Patient has been having high ostomy output since admission, so far today 1.9L. No urine output at this time, Lira was placed. We will obtain renal ultrasound. Quite possibly RALPH prerenal from significant volume depletion, also to note blood pressures low which could also be co ntributing to RALPH. Discussed with patient no acute indication for CURTAIN FRAMER at this time however if renal function and/or potassium worsens patient may need dialysis. Questions were answered. Further orders forthcoming as hospitalization evolves, thank you for allowing us to participate in the care of Ms. Artis. Patient was seen and examined independently she is well-known to me from office. History of CKD stage IIIb baseline creatinine between 1.9-2.0. She also has a history of MGUS, follows with hematology here. since yesterday she has had extremely high output ileostomy. Having to empty the bag almost every 15 minutes. Denies eating outside. No one else in the family sick. Sustained acute renal failure. Clinically appears dry. Blood pressure is still low, tachycardic. We will give another 2 L fluid boluses. She says she has not made any urine since yesterday. Renal ultrasound without any hydronephrosis. Lira catheter with no urine output. Most likely ischemic ATN in the setting of severe volume depletion. Continue fluid resuscitation. Might need temporary dialysis if the urine output does not improve. Hyperkalemia is better with bicarbonate. HPI Consult Data Date of Consult: 01/05/23 [facility] Medical History Acute kidney injury Anxiety Anxiety and depression Arthritis Avascular necrosis of bone of left hip BiPAP (biphasic positive airway pressure) dependence BMI 31.0-31.9,adult CAD (coronary artery disease) Cardiology follow-up encounter Cellulitis, abdominal wall Chronic back pain Chronic diastolic (congestive) heart failure Chronic narcotic use Chronic respiratory failure Chronic respiratory failure with hypoxia, on home O2 therapy CKD (chronic kidney disease), stage IV COPD (chronic obstructive pulmonary disease) Depression with anxiety Diabetic gastroparesis DM2 (diabetes mellitus, type 2) Elevated anti-tissue transglutaminase (tTG) IgA level Fatty liver FCHL (familial combined hyperlipidemia) Former smoker Gastric reflux Gastroparesis High output ileostomy History of CAD (coronary artery disease) History of COVID-19 Hx of diabetic gastroparesis Hyperlipidemia Hypertension Ileostomy present Insulin dependent diabetes mellitus Left shoulder pain Liver mass Loss of hearing Malaise and fatigue Menieres disease MGUS (monoclonal gammopathy of unknown significance) Migraine headache Myoclonic jerking Non-alcoholic fatty liver disease Nonalcoholic steatohepatitis Obesity Obstructive sleep apnea Psoriasis Secondary pulmonary arterial hypertension Short bowel syndrome Smoking greater than 20 pack years Type 2 diabetes mellitus with diabetic polyneuropathy Ulcerative colitis Vitamin B12 deficiency Vitamin D deficiency Walker as ambulation aid Wears glasses Home Medications aspirin 81 mg tablet,delayed release 81 mg PO DAILY Check with primary doctor 04/08/21 [History Last Taken 05/27/22] diphenoxylate-atropine 2.5 mg-0.025 mg tablet (Lomotil) 1 tab PO TID PRN diarrhea #90 tabs 05/19/21 [Rx Last Taken 05/17/22] duloxetine 30 mg capsule,delayed release 90 mg PO DAILY Check with primary doctor 10/06/21 [History Last Taken 05/27/22] hyoscyamine sulfate 0.125 mg tablet 0.125 mg PO Q6H PRN dyspepsia #60 tabs 11/04/21 [Rx Last Taken 05/25/22] Wheel Chair 11/15/21 [History Last Taken Unknown] blood sugar diagnostic (True Metrix Glucose Test Strip) 11/15/21 [History Last Taken Unknown] blood-glucose meter,continuous (Dexcom G6 Silver Solderer) 11/15/21 [History Last Taken Unknown] pen needle, diabetic 32 gauge x 5/32 (BD Ultra-Fine Key Pen Needle) 11/15/21 [History Last Taken Unknown] buprenorphine 10 mcg/hour weekly transdermal patch 1 patch transdermal Q7D pain 11/18/21 [History Last Taken 05/23/22] loperamide 2 mg capsule (Imodium A-D) 2 mg PO Q6H PRN loose stool #20 caps 11/18/21 [Rx Last Taken 05/14/22] nitroglycerin 0.4 mg sublingual tablet 0.4 mg sublingual Q5-15M PRN chest pain #25 tabs 11/20/21 [Rx Last Taken Unknown] ostomy supplies #1 ea 02/13/22 [Rx Last Taken Unknown] dicyclomine 10 mg capsule 20 mg PO DAILY Check with primary doctor 03/14/22 [History Last Taken 05/27/22] clopidogrel 75 mg tablet 75 mg PO DAILY Check with primary doctor #90 tabs 03/16/22 [Rx Last Taken 05/27/22] pantoprazole 40 mg tablet,delayed release See Rx Instructions .Route .COMPLEX #28 tabs 04/07/22 [Rx Last Taken 05/27/22] melatonin 3 mg tablet 5 mg PO QHS PRN PRN Insomnia 07/06/22 [History Last Taken Unknown] lamotrigine 100 mg tablet 100 mg PO DAILY 07/20/22 [History Last Taken Unknown] metoprolol tartrate 25 mg tablet 25 mg PO .COMPLEX bp #180 tabs 07/28/22 [Rx Last Taken Unknown] insulin pump cart,automated,BT (Omnipod 5 G6 Pods (Gen 5) subcutaneous cartridge) #45 ea 07/31/22 [Rx Last Taken Unknown] atorvastatin 80 mg tablet 80 mg PO QHS CHOLESTEROL LOWERING #90 tabs 08/04/22 [Rx Last Taken Unknown] blood-glucose transmitter (Dexcom G6 Transmitter device) #1 ea 08/07/22 [Rx Last Taken Unknown] dicyclomine 10 mg capsule 10 mg PO QHS 09/01/22 [History Last Taken Unknown] metoprolol tartrate 50 mg tablet 50 mg PO .COMPLEX Check with primary doctor 09/02/22 [History Last Taken Unknown] Handicap Placard #1 ea 09/16/22 [Rx Last Taken Unknown] dapagliflozin propanediol 10 mg tablet (Farxiga) 10 mg PO DAILY #90 tabs 09/16/22 [Rx Last Taken Unknown] triamcinolone acetonide 0.1 % topical cream 1 applic topical BID PRN rash #453.6 grams 09/16/22 [Rx Last Taken Unknown] cholecalciferol (vitamin D3) 50 mcg (2,000 unit) capsule 50 mcg PO DAILY 11/10/22 [History Last Taken Unknown] isosorbide dinitrate 30 mg tablet 30 mg PO BID heart #60 tabs 12/11/22 [Rx Last Taken Unknown] blood-glucose sensor (Dexcom G6 Sensor device) #9 ea 12/14/22 [Rx Last Taken Unknown] pregabalin 75 mg capsule 75 mg PO BID pain #60 caps 12/15/22 [Rx Last Taken Unknown] ursodiol 300 mg capsule 300 mg PO BID Check with primary doctor 12/17/22 [History Last Taken Unknown] insulin lispro 200 unit/mL (3 mL) subcutaneous pen (Humalog KwikPen U-200 Insulin) 130 unit subcut CONT diabetes 01/04/23 [History Last Taken Unknown] Allergy/AdvReac Type Severity Reaction Status Date / Time ciprofloxacin Allergy Intermediate Swelling Verified 01/04/23 20:07 cinnamon [Cinnamon] Allergy Anaphylaxis Verified 01/04/23 20:07 Influenza Virus Vaccines Allergy Shortness Verified 01/04/23 20:07 of breath liraglutide [From Victoza] Allergy Anaphylaxis Verified 01/04/23 20:07 metformin [From Glucophage] Allergy NEEDS Verified 01/04/23 20:07 FOLLOW-UP metronidazole [From Flagyl] Allergy Hives Verified 01/04/23 20:07 Metronidazole HCl Allergy Hives Verified 01/04/23 20:07 [From Flagyl] Penicillins Allergy Hives Verified 01/04/23 20:07 Sulfa (Sulfonamide Allergy Hives Verified 01/04/23 20:07 Antibiotics) aripiprazole [From Abilify] AdvReac hallucinati Verified 01/04/23 20:07 ons codeine AdvReac Stops Verified 01/04/23 20:07 Ileostomy metformin HCl AdvReac Nausea Verified 01/04/23 20:07 [From Glucophage] ranolazine AdvReac Nausea/Vom/ Verified 01/04/23 20:07 Diarrhea [id number] Reductase AdvReac Nausea/joints Verified 01/04/23 20:07 Inhibitor ache Family History Mother CVA (cerebral vascular accident) Diabetes Brother Heart disease of CAD at 65 Myocardial infarction Pancreatitis Father Cancer lymphomia Lymphoma Grandmother Myocardial infarction of [place] in her 70s Sister COPD (chronic obstructive pulmonary disease) Surgical History H/O colectomy H/O coronary artery bypass surgery (05/18/12) H/O sinus surgery H/O total hysterectomy history closed fissure History of History of cardiac catheterization History of cholecystectomy History of coronary artery stent placement (01/12/18) ileostomy Ileostomy status left thumb surgery Status post total hip replacement, left Social History household members: none Smoking Status: Former smoker quit date: 03/08/12 how long ago did patient quit smoking: quit in 2012; 0.5-1ppd x 30yrs alcohol intake: never substance use type: does not use diet: diabetic caffeine: No eating out: 1-3 times/week what type of physical activity do you participate in: none seatbelt use: always do you feel safe at home: Yes Lab / Micro Data 01/05/23 03:35 01/05/23 14:00
[2023-01-05] MEDS: Sodium Bicarbonate 8.4% 50 ML Syringe 50 MEQ IV ×2 (10:46→12:20)
[2023-01-05] MEDS: Loperamide 2 MG Capsule PO ×2 (10:46→16:27)
[2023-01-05] MEDS: DULoxetine Hcl 30 MG Capsule 90 MG PO (10:46)
[2023-01-05] MEDS: Pregabalin 75 MG Capsule PO ×2 (10:46→21:09)
[2023-01-05] MEDS: lamoTRIgine 100 MG Tablet PO (10:47)
[2023-01-05] MEDS: Pantoprazole Sodium 40 MG Tablet PO (10:47)
--- NOTE | 2023-01-05 10:52 | US_ITS ---
INDICATION: RALPH EXAMINATION: Ultrasound US Kidney(s) complete (eg, kidneys and bladder) TECHNIQUE: Rowland scale and color doppler images were obtained of the kidneys. COMPARISON: December 24, [address] dated November 15, 2021 FINDINGS: RIGHT KIDNEY: The right kidney measures 9.9 cm in length. There is no hydronephrosis. There is a grossly simple and stable appearing 1.4 x 1.1 x 1.6 cm cyst. LEFT KIDNEY: The left kidney measures 10.0 cm in length. There is no hydronephrosis. There is a 1.5 x 1.6 x 1.3 cm cyst URINARY BLADDER: There is a Lira catheter within an incompletely distended urinary bladder. US/Kidney and Bladder IMPRESSION: No hydronephrosis. Bilateral renal cysts. Electronically Signed: Kayla Hanson MD at 12:51 EDT ,
[2023-01-05] MEDS: Dicyclomine 10 MG Capsule 20 MG PO (10:54)
[2023-01-05 12:28] LABS: Bedside Glucose 206 mg/dL (74-106)
--- NOTE | 2023-01-05 12:30 | CASEMGMT ---
RN CM Face to Face with patient for initial transition planning/care coordination assessment. RN CM introduced self and role at [facility]. Patient lying in bed, alert and oriented. Patient willing to participate in assessment and is able to answer all questions appropriately. Care providers, pharmacy, and demographics verified. Patient wishes to discharge home, will monitor progress with therapy for safe disposition. Patient states she has no further needs or concerns at this time. CM to follow for discharge planning needs that may arise. PCP: [facility] Specialists: Lynsey, duralumin mechanic; Keven, plater hot dip; , director stars; Jacky, supervisor compounding and finishing; Friend, GI; Jenn, oncologist Preferred Pharmacy: [facility] Insurance: [employer] Prescription Benefit: yes Living Will/HPOA: yes, life partner Azucena ANTHONY: life partner Living Arrangements: Patient lives alone in a first floor apartment with no steps to enter. Patient is independent for selfcare, life partner assist with user experience designer. Transportation: self, life partner DME/HHC: [facility] shower chair, grab bars, walker, wheelchair, nebulizer, pulse ox. Patient has had [facility] HHC in the past. Patient has been to [facility] in the past. Disposition Plan: TBD, anticipate HHC vs SNF pending progress with therapy and course of treatment. Amie IVAN, RN, CM
[2023-01-05] MEDS: 0.9% Normal Saline (1000mL) 1,000 ML 150 ML IV ×2 (13:51→21:09)
[2023-01-05] MEDS: Diphenoxylate/Atrop 1 Tablet PO ×2 (14:14→21:09)
[2023-01-05 14:22] LABS: Anion Gap 8 (5-15); BUN 52 mg/dL (7-18); BUN/Creat Ratio 10.6 RATIO (10-20); Calcium,Total 9.7 mg/dL (8.5-10.1); Chloride 100 mmol/L (98-107); Creatinine, Serum 4.92 mg/dL (0.55-1.02); EST Glomerular Filtration Rate 9 mL/min (>60); Est Glom Filt Rate - Afr Amer 11 mL/min (>60); Estimated Creatinine Clearance 11.23 ml/min; Glucose 191 mg/dL (74-106); Potassium 4.3 mmol/L (3.5-5.1); Sodium Level 135 mmol/L (136-145)
--- NOTE | 2023-01-05 15:00 | PN_ITS ---
Subjective Subjective Patient seen and examined. She was admitted with a complaint of diarrhea. She had increased output from her colostomy bag. She still complaining of increased diarrhea. She ileostomy as a result of ulcerative colitis. She has been treated for acute renal failure in the setting of diarrhea. C. difficile is negative. Patient has a low-grade fever of 99.6 Fahrenheit and heart rate has gone up to 110. WBC is up from 12-20.6. Objective Data Objective Data Vital Signs: Vital Signs Temp Pulse Resp BP Pulse Ox O2 Del Method O2 Flow Rate 99.6 F H 110 H 18 105/60 94 Nasal Cannula 2 01/05/23 14:19 01/05/23 14:19 01/05/23 14:19 01/05/23 14:19 01/05/23 13:59 01/05/23 14:16 01/05/23 14:16 Oxygen Flow Rate (L/min) 2 Oxygen Delivery Method Nasal Cannula Weight: 194 lb 10.691 oz Body Mass Index (BMI) 30.4 Intake & Output: Intake and Output for Last 24 Hours 01/03/23 01/04/23 01/05/23 23:59 23:59 23:59 Intake Total 1000 / 1000 3502.09 / 3502.09 Output Total 550 / 550 3250 / 3250 Balance 450 / 450 252.09 / 252.09 Lab / Micro Data 01/05/23 03:35 01/05/23 14:00 Labs: Laboratory Results - last 24 hr 01/04/23 20:07: POC Glucose 286 H 01/04/23 20:29: WBC 12.0 H, RBC 6.94 H, Hgb 18.7 H*, Hct 59.5 H, MCV 85.7, MCH 26.9 L, MCHC 31.4 L, RDW Std Deviation 49.0 H, RDW Coeff of Jan 17.6 H, Plt Count 291, MPV 13.0 H, Immature Gran % (Auto) 0.700, Neut % (Auto) 73.3 H, Lymph % (Auto) 20.1, [place] % (Auto) 4.7, Eos % (Auto) 0.7, Baso % (Auto) 0.5, Absolute Neuts (auto) 8.8 H, Absolute Lymphs (auto) 2.41, Nucleated RBC % 0.2, Diff Path Review May foll, Platelet Estimate ADEQUATE, RBC Morphology N CHROM, Anisocytosis RARE, Macrocytosis RARE, Ovalocytes RARE, Sodium Cancelled, Potassium Cancelled, Chloride Cancelled, Carbon Dioxide Cancelled, Anion Gap Cancelled, BUN Cancelled, Creatinine Cancelled, Estim Creat Clear Calc Cancelled, Est GFR (MDRD) Af Amer Cancelled, Est GFR (MDRD) Non-Af Cancelled, BUN/Creatinine Ratio Cancelled, Glucose Cancelled, Calcium Cancelled, Total Bilirubin Cancelled, AST Cancelled, ALT Cancelled, Alkaline Phosphatase Cancelled, Troponin I High Sens Cancelled, Total Protein Cancelled, Albumin Cancelled, Globulin Cancelled, Albumin/Globulin Ratio Cancelled, Lipase Cancelled 01/04/23 20:50: Urine Color Yellow, Urine Clarity Sl. Cloudy, Urine pH 5.0, Ur Specific [place] 1.030, Urine Protein 500 H, Urine Glucose (UA) 250 H, Urine Ketones 15 H, Urine Occult Blood 25 H, Urine Nitrite Negative, Urine Bilirubin 3 H, Urine Urobilinogen 1 H, Ur Leukocyte Esterase 25 H, Urine RBC Cancelled, Urine WBC Cancelled, Ur Squamous Epith Cells Cancelled, Ur Transition Epith Cell Cancelled, Ur Renal Epithelial Cell Cancelled, Calcium Oxalate Crystal Cancelled, Uric Acid Crystals Cancelled, Triple Phos Crystals Cancelled, Other Crystals Cancelled, Amorphous Sediment Cancelled, Urine Bacteria Cancelled, Hyaline Casts Cancelled, Fine Granular Casts Cancelled, Coarse Granular Casts Cancelled, Waxy Casts Cancelled, RBC Casts Cancelled, WBC Casts Cancelled, Urine Mucus Cancelled, Urine Trichomonas Cancelled, Urine Yeast Cancelled 01/04/23 22:00: Sodium 132 L, Potassium 6.6 H*, Chloride 95 L, Carbon Dioxide 24.0, Anion Gap 13, BUN 42 H, Creatinine 3.35 H, Estim Creat Clear Calc 16.50, Est GFR (MDRD) Af Amer 18 L, Est GFR (MDRD) Non-Af 15 L, BUN/Creatinine Ratio 12.5, Glucose 307 H, Calcium 12.0 H, Total Bilirubin 1.40 H, AST 33, ALT 27, A lkaline Phosphatase 218 H, Troponin I High Sens 16, Total Protein 10.8 H, Albumin 4.7, Globulin 6.1 H, Albumin/Globulin Ratio 0.8 L, Lipase 73 01/05/23 03:35: WBC 20.6 H, RBC 5.98 H, Hgb 16.4 H, Hct 52.3 H, MCV 87.5, MCH 27.4, MCHC 31.4 L, RDW Std Deviation 51.2 H, RDW Coeff of Jan 17.0 H, Plt Count 253, MPV 12.7 H, Immature Gran % (Auto) 0.900, Neut % (Auto) 80.5 H, Lymph % (Auto) 10.3 L, [place] % (Auto) 7.5, Eos % (Auto) 0.7, Baso % (Auto) 0.1, Absolute Neuts (auto) 16.5 H, Absolute Lymphs (auto) 2.12, Nucleated RBC % 0.2, Differential Comment SCANNED, Diff Path Review July, Plt Morphology Comment LARGE, Sodium 130 L, Potassium 5.8 H, Chloride 104, Carbon Dioxide 16.0 L, Anion Gap 10, BUN 45 H, Creatinine 3.88 H, Estim Creat Clear Calc 14.24, Est GFR (MDRD) Af Amer 15 L, Est GFR (MDRD) Non-Af 12 L, BUN/Creatinine Ratio 11.6, Glucose 288 H, Calcium 10.1, Troponin I High Sens 154 H* 01/05/23 10:53: POC Glucose 206 H 01/05/23 14:00: Sodium 135 L, Potassium 4.3, Chloride 100, Carbon Dioxide 27.0, Anion Gap 8, BUN 52 H, Creatinine 4.92 H, Estim Creat Clear Calc 11.23, Est GFR (MDRD) Af Amer 11 L, Est GFR (MDRD) Non-Af 9 L, BUN/Creatinine Ratio 10.6, Glucose 191 H, Calcium 9.7 Micro: Microbiology 01/04/23 20:32 Stool Stool Lactoferrin - Final 01/04/23 20:32 Stool Enteric Bacteriology - Final 01/04/23 20:32 Stool C. difficile DNA Amplification - Final Radiography Diagnostic Testing: Radiology Impression Chest X-Ray 01/04/23 20:40 IMPRESSION: No acute cardiopulmonary disease. Electronically Signed: Wilma Bermudez MD at 21:28 EDT , Renal Ultrasound 01/05/23 10:52 IMPRESSION: No hydronephrosis. Bilateral renal cysts. Electronically Signed: Kayla Hanson MD at 12:51 EDT , Rhythm Strip Rhythm Strip: Sinus Tach Rate: 105 Ectopy: None Physical Exam Const alert, oriented x3, no apparent distress and well nourished General Appearance: cooperative and well developed HEENT normocephalic, moist oral mucous membranes and oropharynx normal Eyes PERRL and EOMs intact bilaterally Neck no lymphadenopathy, supple and no JVD Lymph Lymphatic: no lymphadenopathy noted and no lymphedema noted Resp normal respiratory effort, normal air movement and clear to auscultation bilaterally Cardio regular rate, regular rhythm, S1 normal heart sound, S2 normal heart sound and no murmurs GI normal to inspection, nondistended, normoactive bowel sounds and soft to palpation GI Narrative: greenish liquid stool in the ileostomy bag Extremity normal capillary refill, no clubbing, cyanosis or edema and no calf tenderness General Extremity: no tenderness to palpation of joints or extremities Skin General Skin Exam: no breakdown and turgor normal Neuro CN's II-XII intact bilaterally, no focal motor deficits, no sensory deficits noted and deep tendon reflexes 2+ bilaterally Motor Exam: strength 5/5 throughout and general weakness Psych thought process normal and cooperative Appearance: appropriate Assessment & Plan Assessment/Plan (1) Metabolic acidosis: (2) Hyperkalemia, diminished renal excretion: (3) Acute renal failure: (4) Acute dehydration: (5) Gastroenteritis: PLAN: Plan #Acute gastroenteritis * still complaining of diarrhea. * denies any nausea or vomiting. * C diff is negative * wbc is however up to 20.6 from 12 yesterday * she also has a fever and increased HR * stool for enteric pathogen is negative * order IV zosyn in light of fever and elevated wbc. Get blood cultures * already on loperamide * Consult gastroenterology in light of the increased ostomy output * #RALPH * Creatinine has trended up further today to 3.88. Nephrology consulted. Labs for Fe urea check ordered. * nephrology consulted * continue hydration with IVF * #Type 2 diabetes mellitus; on ISS. Accuchecks ACHS. Dapagliflozin on hold. Also has insulin pump #History of ulcerative colitis: S/p ileostomy with resultant short gut syndrome. #Hypertension: On metoprolol and hydrochlorothiazide. #CAD: On aspirin and Plavix as well as high intensity statin. Also on imdur #Depression: On duloxetine #History of psoriasis. Used to be on Humira but was taken off of it during COVID times due to concerns for immunosuppression. To follow-up with rheumatology on outpatient basis. #History of chronic pain: On buprenorphine patch DVT prophylaxis; on lovenox Charges/Coding Visit Charges Inpatient E&M: 43050 Subs Hosp L3
[2023-01-05] MEDS: 0.9% Normal Saline (1000mL) 1,000 ML 999 ML IV ×2 (15:08→16:27)
[2023-01-05] MEDS: Cefepime HCl 1 GM in 0.9% Normal Saline (50mL MB+) 50 ML IV (16:29)
[2023-01-05] MEDS: traMADol 50 MG Tablet PO (18:21)
[2023-01-05 20:49] LABS: Urea Nitrogen, Urine 250 mg/dL (NO RANGE EST.)
[2023-01-05] MEDS: Metoprolol Tartrate 25 MG Tablet 75 MG PO (21:09)
[2023-01-05] MEDS: Isosorbide DN 30 MG Tablet PO (21:09)
[2023-01-05] MEDS: Dicyclomine 10 MG Capsule PO (21:09)
[2023-01-06] VITALS (8 sets, daily range): BP systolic 92–125; BP diastolic 49–74; PULSE 78–92; RESP 15–20; TEMP 36.8–37.1; O2SAT 94–99
--- NOTE | 2023-01-06 00:04 | PCM.HOSP.N ---
Hospitalist Note Patient with reported red tinge to her ostomy output. Will request additional guiac. Patient with severe BL knee chronic pain and is having upcoming pain pump. Given her renal function with dose with 0.5 mg dilaudid x 1.
[2023-01-06] MEDS: HYDROmorphone 0.5 MG/0.5 ML SYRINGE IV (00:15)
[2023-01-06 00:28] LABS: Bedside Glucose 81 mg/dL (74-106)
[2023-01-06] MEDS: 0.9% Normal Saline (1000mL) 1,000 ML 150 ML IV ×4 (03:20→23:16)
[2023-01-06] MEDS: 0.9% Saline Lock 10 ML Syringe IV ×2 (03:20→09:17)
[2023-01-06 03:32] LABS: Absolute Lymphocyte Count 2.48 X10^3/uL (0.83-4.51); Absolute Neutrophil Count 7.5 X10^3/uL (2.0-7.7); Basophil# 0.05 X10^3/uL; Basophil% 0.4 % (0-1); Eosinophil# 0.45 X10^3/uL; Hematocrit 41.7 % (37-47); Hemoglobin 13.3 g/dL (12.0-15.0); Lymphocyte # 2.48 X10^3/ul (0.83-4.51); Mean Corp Hgb Conc 31.9 g/dL (32-36); Mean Corpuscular Hgb 27.6 pg (27.0-32.0); Mean Corpuscular Volume 86.5 fL (81-99); Mean Platelet Vol. 12.2 fl (6.2-12.0); Monocyte% 7.1 % (0-10); NRBC Flagged by Analyzer 0 % (0-5); Neutrophil # 7.45 X10^3/uL (2.7-7.7); Neutrophil % 66.1 % (47-70); Platelet Count 179 K/mm3 (150-450); RBC Distribution Width CV 16.5 % (11.6-14.6); RBC Distribution Width SD 51.5 fl (35.1-43.9); Red Blood Count 4.82 M/mm3 (4.2-5.4); White Blood Count 11.3 K/mm3 (4.4-11.0)
[2023-01-06 04:15] LABS: Anion Gap 5 (5-15); BUN 53 mg/dL (7-18); BUN/Creat Ratio 11.5 RATIO (10-20); Chloride 107 mmol/L (98-107); EST Glomerular Filtration Rate 10 mL/min (>60); Est Glom Filt Rate - Afr Amer 12 mL/min (>60); Estimated Creatinine Clearance 12.01 ml/min; Glucose 93 mg/dL (74-106); Sodium Level 136 mmol/L (136-145)
[2023-01-06] MEDS: Cefepime HCl 1 GM in 0.9% Normal Saline (50mL MB+) 50 ML IV (08:20)
[2023-01-06] MEDS: traMADol 50 MG Tablet PO ×3 (08:20→21:23)
[2023-01-06] MEDS: Pregabalin 75 MG Capsule PO ×2 (08:20→20:32)
[2023-01-06] MEDS: Diphenoxylate/Atrop 1 Tablet PO ×2 (08:21→20:32)
[2023-01-06] MEDS: lamoTRIgine 100 MG Tablet PO (08:21)
[2023-01-06] MEDS: DULoxetine Hcl 30 MG Capsule 90 MG PO (08:21)
[2023-01-06] MEDS: Dicyclomine 10 MG Capsule 20 MG PO (08:21)
[2023-01-06] MEDS: Pantoprazole Sodium 40 MG Tablet PO (08:22)
[2023-01-06] MEDS: Dextrose 50%-Water 25 GM/50 ML DISP.SYRIN IV (09:17)
[2023-01-06 09:46] LABS: Bedside Glucose 59 mg/dL (74-106)
[2023-01-06 10:26] LABS: Bedside Glucose 162 mg/dL (74-106)
[2023-01-06] MEDS: Isosorbide DN 30 MG Tablet PO ×2 (10:27→20:32)
--- NOTE | 2023-01-06 10:49 | PN_ITS ---
Subjective Subjective Patient seen and examined. She complained of pain in her back and knees. She is still having increased output from her ileostomy. Her Cr trended up some more to 4.92 with Cr coming down to 4.6 today. REview of systems is otherwise negative. Objective Data Objective Data Vital Signs: Vital Signs Temp Pulse Resp BP Pulse Ox O2 Del Method O2 Flow Rate 98.4 F 85 15 100/74 98 Nasal Cannula 2 01/06/23 08:19 01/06/23 08:19 01/06/23 08:19 01/06/23 10:27 01/06/23 08:19 01/06/23 08:28 01/06/23 08:28 Oxygen Flow Rate (L/min) 2 Oxygen Delivery Method Nasal Cannula Weight: 194 lb 10.691 oz Body Mass Index (BMI) 30.4 Intake & Output: Intake and Output for Last 24 Hours 01/04/23 01/05/23 01/06/23 23:59 23:59 23:59 Intake Total 1000 / 1000 7632.09 / 7632.09 2377.5 / 2377.5 Output Total 550 / 550 5455 / 5455 600 / 600 Balance 450 / 450 2177.09 / 2177.09 1777.5 / 1777.5 Lab / Micro Data 01/06/23 03:19 01/06/23 03:19 Labs: Laboratory Results - last 24 hr 01/05/23 10:53: POC Glucose 206 H 01/05/23 14:00: Sodium 135 L, Potassium 4.3, Chloride 100, Carbon Dioxide 27.0, Anion Gap 8, BUN 52 H, Creatinine 4.92 H, Estim Creat Clear Calc 11.23, Est GFR (MDRD) Af Amer 11 L, Est GFR (MDRD) Non-Af 9 L, BUN/Creatinine Ratio 10.6, Glucose 191 H, Calcium 9.7 01/05/23 20:14: Urine Creatinine 303.00, Urine Urea Nitrogen 250 01/06/23 00:09: POC Glucose 81 01/06/23 03:19: WBC 11.3 H, RBC 4.82, Hgb 13.3, Hct 41.7, MCV 86.5, MCH 27.6, MCHC 31.9 L, RDW Std Deviation 51.5 H, RDW Coeff of Jan 16.5 H, Plt Count 179, MPV 12.2 H, Immature Gran % (Auto) 0.400, Neut % (Auto) 66.1, Lymph % (Auto) 22.0, [place] % (Auto) 7.1, Eos % (Auto) 4.0, Baso % (Auto) 0.4, Absolute Neuts (auto) 7.5, Absolute Lymphs (auto) 2.48, Nucleated RBC % 0, Sodium 136, Potassium 4.0, Chloride 107, Carbon Dioxide 24.0, Anion Gap 5, BUN 53 H, Creatinine 4.60 H, Estim Creat Clear Calc 12.01, Est GFR (MDRD) Af Amer 12 L, Est GFR (MDRD) Non-Af 10 L, BUN/Creatinine Ratio 11.5, Glucose 93, Calcium 8.0 L 01/06/23 08:52: POC Glucose 59 L 01/06/23 10:07: POC Glucose 162 H Micro: Microbiology 01/06/23 00:05 Stool Stool Occult Blood (MAYTE) - Final Occult Blood Positive 01/04/23 20:32 Stool Stool Lactoferrin - Final 01/04/23 20:32 Stool Enteric Bacteriology - Final 01/04/23 20:32 Stool C. difficile DNA Amplification - Final Radiography Diagnostic Testing: Radiology Impression Echocardiogram 01/05/23 07:30 Interpretation Summary Normal LV size. Left ventricular systolic function is normal. The estimated ejection fraction is 65 %. Contrast injection was performed. Ordering Physician: Audrey Vail Referring Physician: Mala Mcgrath Performed By: Brittany Chapman, LAURIE, RVT Renal Ultrasound 01/05/23 10:52 IMPRESSION: No hydronephrosis. Bilateral renal cysts. Electronically Signed: Kayla Hanson MD at 12:51 EDT , Rhythm Strip Rhythm Strip: Sinus Tach Rate: 105 Ectopy: None Physical Exam Const alert, oriented x3, no apparent distress and well nourished General Appearance: cooperative and well developed HEENT normocephalic, head/scalp atraumatic, moist oral mucous membranes and oropharynx normal Eyes PERRL and EOMs intact bilaterally Neck no lymphadenopathy, supple and no JVD Lymph Lymphatic: no lymphadenopathy noted and no lymphedema noted Resp normal respiratory effort, normal air movement and clear to auscultation bilaterally Cardio regular rate, regular rhythm, S1 normal heart sound, S2 normal heart sound, no murmurs, no rub and no gallops GI normal to inspection, nondistended, normoactive bowel sounds, soft to palpation and non-distended GI Narrative: greenish liquid stool in the ileostomy bag Palpation: Negative for guarding or rigid Extremity normal capillary refill, no clubbing, cyanosis or edema and no calf tenderness General Extremity: no tenderness to palpation of joints or extremities Skin General Skin Exam: no breakdown and turgor normal Neuro CN's II-XII intact bilaterally, no focal motor deficits, no sensory deficits noted and deep tendon reflexes 2+ bilaterally Motor Exam: strength 5/5 throughout and general weakness Psych thought process normal, cooperative and affect normal Appearance: appropriate Assessment & Plan Assessment/Plan (1) Metabolic acidosis: (2) Hyperkalemia, diminished renal excretion: (3) Acute renal failure: (4) Acute dehydration: (5) Gastroenteritis: PLAN: Plan #Acute gastroenteritis * still complaining of increased output from ileostomy. * denies any nausea or vomiting. * C diff is negative * wbc is down to 11.3 renu * she also has a fever and increased HR * stool for enteric pathogen is negative * on IV cefepime as wbc trended upwards. * already on loperamide * Consult gastroenterology in light of the increased ostomy output * stool for occult blood is positive, but this is likely due to the profuse diarrhea * #RALPH * Creatinine has trended up further today to 4.6. It went up to 4.9 yesterday * nephrology on board. * being hydrated with IVF * nephrology consulted * #Type 2 diabetes mellitus; on ISS. Accuchecks ACHS. Dapagliflozin on hold. Also has insulin pump #History of ulcerative colitis: S/p ileostomy with resultant short gut syndrome. #Hypertension: On metoprolol and hydrochlorothiazide. #CAD: On aspirin and Plavix as well as high intensity statin. Also on imdur #Depression: On duloxetine #History of psoriasis. Used to be on Humira but was taken off of it during COVID times due to concerns for immunosuppression. To follow-up with rheumatology on outpatient basis. #History of chronic pain: On buprenorphine patch and tramadol DVT prophylaxis; SCDs Charges/Coding Visit Charges Inpatient E&M: 93404 Subs Hosp L3
--- NOTE | 2023-01-06 11:21 | PN.RENAL_ITS ---
Subjective Subjective Sitting in chair. No overnight events. Reports feeling better today. Output from ostomy is slowing down. Urine output is picking up. Objective Data Objective Data Vital Signs: Vital Signs Temp Pulse Resp BP Pulse Ox O2 Del Method O2 Flow Rate 98.7 F 87 20 H 111/60 96 Room Air 2 01/06/23 11:10 01/06/23 11:10 01/06/23 11:10 01/06/23 11:10 01/06/23 11:10 01/06/23 11:10 01/06/23 08:28 Oxygen Flow Rate (L/min) 2 Oxygen Delivery Method Room Air Weight: 88.3 kg Body Mass Index (BMI) 30.4 Intake & Output: Intake and Output for Last 24 Hours 01/04/23 01/05/23 01/06/23 23:59 23:59 23:59 Intake Total 1000 / 1000 7632.09 / 7632.09 2977.5 / 2977.5 Output Total 550 / 550 5455 / 5455 1350 / 1350 Balance 450 / 450 2177.09 / 2177.09 1627.5 / 1627.5 Lab / Micro Data 01/06/23 03:19 01/06/23 03:19 Labs: Laboratory Results - last 24 hr 01/05/23 10:53: POC Glucose 206 H 01/05/23 14:00: Sodium 135 L, Potassium 4.3, Chloride 100, Carbon Dioxide 27.0, Anion Gap 8, BUN 52 H, Creatinine 4.92 H, Estim Creat Clear Calc 11.23, Est GFR (MDRD) Af Amer 11 L, Est GFR (MDRD) Non-Af 9 L, BUN/Creatinine Ratio 10.6, Glucose 191 H, Calcium 9.7 01/05/23 20:14: Urine Creatinine 303.00, Urine Urea Nitrogen 250 01/06/23 00:09: POC Glucose 81 01/06/23 03:19: WBC 11.3 H, RBC 4.82, Hgb 13.3, Hct 41.7, MCV 86.5, MCH 27.6, MCHC 31.9 L, RDW Std Deviation 51.5 H, RDW Coeff of Jan 16.5 H, Plt Count 179, MPV 12.2 H, Immature Gran % (Auto) 0.400, Neut % (Auto) 66.1, Lymph % (Auto) 22.0, [place] % (Auto) 7.1, Eos % (Auto) 4.0, Baso % (Auto) 0.4, Absolute Neuts (auto) 7.5, Absolute Lymphs (auto) 2.48, Nucleated RBC % 0, Sodium 136, Potassium 4.0, Chloride 107, Carbon Dioxide 24.0, Anion Gap 5, BUN 53 H, Creatinine 4.60 H, Estim Creat Clear Calc 12.01, Est GFR (MDRD) Af Amer 12 L, Est GFR (MDRD) Non-Af 10 L, BUN/Creatinine Ratio 11.5, Glucose 93, Calcium 8.0 L 01/06/23 08:52: POC Glucose 59 L 01/06/23 10:07: POC Glucose 162 H Micro: Microbiology 01/06/23 00:05 Stool Stool Occult Blood (MAYTE) - Final Occult Blood Positive 01/04/23 20:32 Stool Stool Lactoferrin - Final 01/04/23 20:32 Stool Enteric Bacteriology - Final 01/04/23 20:32 Stool C. difficile DNA Amplification - Final Radiography Diagnostic Testing: Radiology Impression Echocardiogram 01/05/23 07:30 Interpretation Summary Normal LV size. Left ventricular systolic function is normal. The estimated ejection fraction is 65 %. Contrast injection was performed. Ordering Physician: Audrey Vail Referring Physician: Mala Mcgrath Performed By: Brittany Chapman, LAURIE, RVT Renal Ultrasound 01/05/23 10:52 IMPRESSION: No hydronephrosis. Bilateral renal cysts. Electronically Signed: Kayla Hanson MD at 12:51 EDT , Rhythm Strip Rhythm Strip: Sinus Tach Rate: 105 Ectopy: None Physical Exam Narrative Alert and oriented x3, no apparent distress Oral mucosa dry, lips dry S1, S2, RRR Lung sounds clear Abdomen soft, ostomy bag with green watery stool No edema Lira with clear yellow urine Assessment & Plan Assessment/Plan (1) Acute renal failure: (2) CKD (chronic kidney disease), stage IV: (3) Metabolic acidosis: PLAN: Plan This is a pleasant 62-year-old female with past medical history significant for ulcerative colitis status post proctocolectomy with J-pouch, proximal diversion with loop ileostomy with 270 cm small bowel remaining complicated by frequent high output, type 2 diabetes mellitus with associated gastroparesis, MGUS, COPD, CAD status post PCI and CABG x4, hypertension, hyperlipidemia, depression and anxiety and CKD who presented to emergency room with complaints of feeling unwell, abdominal cramping and noticing large amount of watery green output from ostomy bag. Nephrology consulted in view of rising creatinine. -Hypovolemic RALPH superimposed on CKD stage IIIb; RALPH secondary to ischemic ATN from severe volume depletion. SCr 3.3mg/dL on admission--> peaked 4.92 yesterday and today SCr 4.6. Potassium was 6.6, now normalized at 4.0. Bicarb 24. Renal ultrasound no hydro. Urine output is picking up. Ostomy output is slowing down. Continue IV fluids for volume expansion. 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 - CKD stage III/IV with baseline creatinine ranging around 1.7- 2mg/dL. CXR clear. -Blood pressures were low but have improved. She is on metoprolol twice daily, she did not receive metoprolol yesterday. Will decrease dose with holding parameters. Blood cultures pending.
[2023-01-06 11:42] LABS: Bedside Glucose 55 mg/dL (74-106)
[2023-01-06 11:42] LABS: Bedside Glucose 166 mg/dL (74-106)
[2023-01-06 11:42] LABS: Bedside Glucose 58 mg/dL (74-106)
[2023-01-06 11:42] LABS: Bedside Glucose 54 mg/dL (74-106)
--- NOTE | 2023-01-06 12:00 | CASEMGMT ---
SVETLANA RAINEY NOTE: Therapy has worked w/patient and verbally reported to this SVETLANA RAINEY they feel pt is safe to discharge home. Additional therapy recommended. SVETLANA RAINEY to room. Pt sitting up in chair. Discussed discharge planning and therapy's recommendations. Pt states she wishes to return home and feels safe to return home alone. She states her life partner, Azucena, would be able to assist her if needed. She states she has had HHC in the past and declines wanting HHC again. Also discussed OP therapy and she declines this as well, stating she has also done this in the past. She feels therapy often aggravates the pain and reports she is getting a pain pump next week and is hopeful this will alleviate a lot of her back pain. SVETLANA RAINEY advised her to f/u with her PCP if she changes her mind re: OP therapy or HHC. She voices understanding. She denies having other discharge planning needs or concerns. Mitchel IVAN RN, CM
[2023-01-06 13:14] LABS: Pathologist Review Reviewed
[2023-01-06 13:14] LABS: Pathologist Review Reviewed
[2023-01-06] MEDS: Loperamide 2 MG Capsule PO (15:16)
[2023-01-06 16:46] LABS: Bedside Glucose 136 mg/dL (74-106)
--- NOTE | 2023-01-06 18:41 | CON.PCM.GI_ITS ---
HPI Consult Data Date of Consult: 01/06/23 HPI Narrative Reason for Consultation: high output ilesostomy HPI Narrative: ASHLEY MÉNDEZ, is a 62 F who presents for dehydration and weakness and her labs show a significant increase in her BUN and creatinine ratio. She has a history of gastroparesis, type 2 diabetes, monoclonal gammopathy, ileostomy due to ulcerative colitis and atherosclerotic heart disease who presents with nausea and vomiting started a few days ago. She is having high output from her ileostomy.? She also has been having abdominal discomfort nausea vomiting and high output ostomy. She has a history of ulcerative colitis had toxic megacolon and had a ileostomy placed. She generally has relatively high output but she states she only has to change her bag about twice a day. She does go in once every 2 weeks for IV fluids to maintain hydration. She has had problems when her gastroparesis acts up she gets high output ostomy and has had problems with acute kidney injury. She feels like that is what is happening. About 24 hours ago she started with nausea vomiting abdominal cramping and what she describes as water in her ostomy and she has changed the bag as frequently as every 15 minutes. She was not urinating now which is not typical for her. She feels overall weak. She is not having chest pain or trouble breathing. She is not having fevers or chills. No blood has been seen in the ostomy output. I have been giving her IV fluids every 2 weeks. However she says that she thinks that her v olume from her ileostomy is getting worse. She typically has about 2 or 3 episodes of high output ileostomy requiring her to come into the hospital for IV fluids every year. [facility] Medical History Acute kidney injury Anxiety Anxiety and depression Arthritis Avascular necrosis of bone of left hip BiPAP (biphasic positive airway pressure) dependence BMI 31.0-31.9,adult CAD (coronary artery disease) Cardiology follow-up encounter Cellulitis, abdominal wall Chronic back pain Chronic diastolic (congestive) heart failure Chronic narcotic use Chronic respiratory failure Chronic respiratory failure with hypoxia, on home O2 therapy CKD (chronic kidney disease), stage IV COPD (chronic obstructive pulmonary disease) Depression with anxiety Diabetic gastroparesis DM2 (diabetes mellitus, type 2) Elevated anti-tissue transglutaminase (tTG) IgA level Fatty liver FCHL (familial combined hyperlipidemia) Former smoker Gastric reflux Gastroparesis High output ileostomy History of CAD (coronary artery disease) History of COVID-19 Hx of diabetic gastroparesis Hyperlipidemia Hypertension Ileostomy present Insulin dependent diabetes mellitus Left shoulder pain Liver mass Loss of hearing Malaise and fatigue Menieres disease MGUS (monoclonal gammopathy of unknown significance) Migraine headache Myoclonic jerking Non-alcoholic fatty liver disease Nonalcoholic steatohepatitis Obesity Obstructive sleep apnea Psoriasis Secondary pulmonary arterial hypertension Short bowel syndrome Smoking greater than 20 pack years Type 2 diabetes mellitus with diabetic polyneuropathy Ulcerative colitis Vitamin B12 deficiency Vitamin D deficiency Walker as ambulation aid Wears glasses Home Medications aspirin 81 mg tablet,delayed release 81 mg PO DAILY Check with primary doctor 04/08/21 [History Last Taken 05/27/22] diphenoxylate-atropine 2.5 mg-0.025 mg tablet (Lomotil) 1 tab PO TID PRN diarrhea #90 tabs 05/19/21 [Rx Last Taken 05/17/22] duloxetine 30 mg capsule,delayed release 90 mg PO DAILY Check with primary doctor 10/06/21 [History Last Taken 05/27/22] hyoscyamine sulfate 0.125 mg tablet 0.125 mg PO Q6H PRN dyspepsia #60 tabs 11/04/21 [Rx Last Taken 05/25/22] Wheel Chair 11/15/21 [History Last Taken Unknown] blood sugar diagnostic (True Metrix Glucose Test Strip) 11/15/21 [History Last Taken Unknown] blood-glucose meter,continuous (Dexcom G6 Candy Cooker Helper) 11/15/21 [History Last Taken Unknown] pen needle, diabetic 32 gauge x 5/32 (BD Ultra-Fine Key Pen Needle) 11/15/21 [History Last Taken Unknown] buprenorphine 10 mcg/hour weekly transdermal patch 1 patch transdermal Q7D pain 11/18/21 [History Last Taken 05/23/22] loperamide 2 mg capsule (Imodium A-D) 2 mg PO Q6H PRN loose stool #20 caps 11/18/21 [Rx Last Taken 05/14/22] nitroglycerin 0.4 mg sublingual tablet 0.4 mg sublingual Q5-15M PRN chest pain #25 tabs 11/20/21 [Rx Last Taken Unknown] ostomy supplies #1 ea 02/13/22 [Rx Last Taken Unknown] dicyclomine 10 mg capsule 20 mg PO DAILY Check with primary doctor 03/14/22 [History Last Taken 05/27/22] clopidogrel 75 mg tablet 75 mg PO DAILY Check with primary doctor #90 tabs 03/16/22 [Rx Last Taken 05/27/22] pantoprazole 40 mg tablet,delayed release See Rx Instructions .Route .COMPLEX #28 tabs 04/07/22 [Rx Last Taken 05/27/22] melatonin 3 mg tablet 5 mg PO QHS PRN PRN Insomnia 07/06/22 [History Last Taken Unknown] lamotrigine 100 mg tablet 100 mg PO DAILY 07/20/22 [History Last Taken Unknown] metoprolol tartrate 25 mg tablet 25 mg PO .COMPLEX bp #180 tabs 07/28/22 [Rx Last Taken Unknown] insulin pump cart,automated,BT (Omnipod 5 G6 Pods (Gen 5) subcutaneous cartridge) #45 ea 07/31/22 [Rx Last Taken Unknown] atorvastatin 80 mg tablet 80 mg PO QHS CHOLESTEROL LOWERING #90 tabs 08/04/22 [Rx Last Taken Unknown] blood-glucose transmitter (Dexcom G6 Transmitter device) #1 ea 08/07/22 [Rx Last Taken Unknown] dicyclomine 10 mg capsule 10 mg PO QHS 09/01/22 [History Last Taken Unknown] metoprolol tartrate 50 mg tablet 50 mg PO .COMPLEX Check with primary doctor 09/02/22 [History Last Taken Unknown] Handicap Placard #1 ea 09/16/22 [Rx Last Taken Unknown] dapagliflozin propanediol 10 mg tablet (Farxiga) 10 mg PO DAILY #90 tabs 09/16/22 [Rx Last Taken Unknown] triamcinolone acetonide 0.1 % topical cream 1 applic topical BID PRN rash #453.6 grams 09/16/22 [Rx Last Taken Unknown] cholecalciferol (vitamin D3) 50 mcg (2,000 unit) capsule 50 mcg PO DAILY 11/10/22 [History Last Taken Unknown] isosorbide dinitrate 30 mg tablet 30 mg PO BID heart #60 tabs 12/11/22 [Rx Last Taken Unknown] blood-glucose sensor (Dexcom G6 Sensor device) #9 ea 12/14/22 [Rx Last Taken Unknown] pregabalin 75 mg capsule 75 mg PO BID pain #60 caps 12/15/22 [Rx Last Taken Unknown] ursodiol 300 mg capsule 300 mg PO BID Check with primary doctor 12/17/22 [History Last Taken Unknown] insulin lispro 200 unit/mL (3 mL) subcutaneous pen (Humalog KwikPen U-200 Insulin) 130 unit subcut CONT diabetes 01/04/23 [History Last Taken Unknown] Allergy/AdvReac Type Severity Reaction Status Date / Time ciprofloxacin Allergy Intermediate Swelling Verified 01/04/23 20:07 cinnamon [Cinnamon] Allergy Anaphylaxis Verified 01/04/23 20:07 Influenza Virus Vaccines Allergy Shortness Verified 01/04/23 20:07 of breath liraglutide [From Victoza] Allergy Anaphylaxis Verified 01/04/23 20:07 metformin [From Glucophage] Allergy NEEDS Verified 01/04/23 20:07 FOLLOW-UP metronidazole [From Flagyl] Allergy Hives Verified 01/04/23 20:07 Metronidazole HCl Allergy Hives Verified 01/04/23 20:07 [From Flagyl] Penicillins Allergy Hives Verified 01/04/23 20:07 Sulfa (Sulfonamide Allergy Hives Verified 01/04/23 20:07 Antibiotics) aripiprazole [From Abilify] AdvReac hallucinati Verified 01/04/23 20:07 ons codeine AdvReac Stops Verified 01/04/23 20:07 Ileostomy metformin HCl AdvReac Nausea Verified 01/04/23 20:07 [From Glucophage] ranolazine AdvReac Nausea/Vom/ Verified 01/04/23 20:07 Diarrhea [id number] Reductase AdvReac Nausea/joints Verified 01/04/23 20:07 Inhibitor ache [Vudjnji-[id number]-Tkf Reductase Inhibitor] Family History Mother CVA (cerebral vascular accident) Diabetes Brother Heart disease of CAD at 65 Myocardial infarction Pancreatitis Father Cancer lymphomia Lymphoma Grandmother Myocardial infarction of DE in her 70s Sister COPD (chronic obstructive pulmonary disease) Surgical History H/O colectomy H/O coronary artery bypass surgery (05/18/12) H/O sinus surgery H/O total hysterectomy history closed fissure History of History of cardiac catheterization History of cholecystectomy History of coronary artery stent placement (01/12/18) ileostomy Ileostomy status left thumb surgery Status post total hip replacement, left Social History household members: none Smoking Status: Former smoker quit date: 03/08/12 how long ago did patient quit smoking: quit in 2012; 0.5-1ppd x 30yrs alcohol intake: never substance use type: does not use diet: diabetic caffeine: No eating out: 1-3 times/week what type of physical activity do you participate in: none seatbelt use: always do you feel safe at home: Yes ROS Constitutional Constitutional: Reports chills; Denies fever(s) Eyes Eyes: Denies blurry vision ENT HEENT: Denies dysphagia Cardiovascular Cardiovascular: Reports chest pain Respiratory/Chest Respiratory/Chest: Denies shortness of breath at rest Gastrointestinal Gastrointestinal: Reports abdominal pain, diarrhea, nausea and vomiting Genitourinary Genitourinary: Denies dysuria Musculoskeletal Musculoskeletal: Denies back pain Integumentary Integumentary: Denies dry skin Neurologic Neurologic: Denies abnormal speech Psychiatric Psychiatric: Denies anxiety Endocrine Endocrinology: Denies polydipsia Physical Exam Const alert, oriented x3, no apparent distress and well nourished General Appearance: cooperative and well developed HEENT normocephalic, moist oral mucous membranes and oropharynx normal Eyes PERRL and EOMs intact bilaterally Neck no lymphadenopathy, supple and no JVD Lymph Lymphatic: no lymphadenopathy noted and no lymphedema noted Resp normal respiratory effort, normal air movement and clear to auscultation bilaterally Cardio regular rate, regular rhythm, S1 normal heart sound, S2 normal heart sound and no murmurs GI normal to inspection, nondistended, normoactive bowel sounds and soft to palpation GI Narrative: greenish liquid stool in the ileostomy bag Extremity normal capillary refill, no clubbing, cyanosis or edema and no calf tenderness General Extremity: no tenderness to palpation of joints or extremities Skin General Skin Exam: no breakdown and turgor normal Neuro CN's II-XII intact bilaterally, no focal motor deficits, no sensory deficits noted and deep tendon reflexes 2+ bilaterally Motor Exam: strength 5/5 throughout and general weakness Psych thought process normal and cooperative Appearance: appropriate Lab / Micro Data 01/06/23 03:19 01/06/23 03:19 Labs: Laboratory Results - last 24 hr 01/04/23 20:29: Diff Path Review Reviewed 01/05/23 03:35: Diff Path Review Reviewed 01/05/23 20:14: Urine Creatinine 303.00, Urine Urea Nitrogen 250 01/06/23 00:09: POC Glucose 81 01/06/23 03:19: WBC 11.3 H, RBC 4.82, Hgb 13.3, Hct 41.7, MCV 86.5, MCH 27.6, MCHC 31.9 L, RDW Std Deviation 51.5 H, RDW Coeff of Jan 16.5 H, Plt Count 179, MPV 12.2 H, Immature Gran % (Auto) 0.400, Neut % (Auto) 66.1, Lymph % (Auto) 22.0, [place] % (Auto) 7.1, Eos % (Auto) 4.0, Baso % (Auto) 0.4, Absolute Neuts (auto) 7.5, Absolute Lymphs (auto) 2.48, Nucleated RBC % 0, Sodium 136, Potassium 4.0, Chloride 107, Carbon Dioxide 24.0, Anion Gap 5, BUN 53 H, Creatinine 4.60 H, Estim Creat Clear Calc 12.01, Est GFR (MDRD) Af Amer 12 L, Est GFR (MDRD) Non-Af 10 L, BUN/Creatinine Ratio 11.5, Glucose 93, Calcium 8.0 L 01/06/23 08:16: POC Glucose 54 L 01/06/23 08:34: POC Glucose 55 L 01/06/23 08:52: POC Glucose 59 L 01/06/23 09:13: POC Glucose 58 L 01/06/23 10:07: POC Glucose 162 H 01/06/23 11:12: POC Glucose 166 H 01/06/23 16:26: POC Glucose 136 H Micro: Microbiology 01/06/23 00:05 Stool Stool Occult Blood (MAYTE) - Final Occult Blood Positive Rhythm Strip Rhythm Strip: Sinus Tach Rate: 105 Ectopy: None Assessment & Plan Assessment/Plan (1) High output ileostomy: PLAN: She has a history of ulcerative colitis , status post total proctocolectom y with J-pouch , proximal diversion with loop ileostomy with 270cm small bowel remaining, presented in following 5 days of high output from his ileostomy. Her BUN and creatinine were 50 and 4.9 respectively, with a reported 24 hour urine output of 500ml , but stated he sometimes goes a day or so without urinating every 4 to 6 weeks. She is feeling a lot better at this time. I do not know what caused this recent episode of high output ileostomy. She is having almost no fluid come from her ileostomy. She does have elements of short gut syndrome and we tried to get her Gattex and octreotide. However it was not approved by insurance. Therefore we manage that part with Imodium as needed, PPI BID, 5 mg Lomotil QID, 8 mg Imodium QID, Metamucil TID, cholestyramine BID, oxycodone PRN. I will put her on octreotide drip and PPI drip while she is in the hospital and increase IV fluids up to 250 cc an hour. She is responding very well to conservative measures as per nursing. She only had her Ostomy bag emptied 1 time in the last 8 hours. There is no sign infection in her stool so far. I am suspect she has exacerbation of short gut syndrome. Hopefully can be resolved without the use of octreotide. (2) Acute kidney injury superimposed on CKD: Charges/Coding Visit Charges Inpatient E&M: 60986 Init Hosp L3
[2023-01-06] MEDS: Metoprolol Tartrate 50 MG Tablet PO (20:32)
[2023-01-06] MEDS: MELATONIN 10 MG TABLET 5 MG PO (20:32)
[2023-01-06] MEDS: Octreotide 0.5 MG in Dextrose 5%-Water (250mL Bag) 249 ML 25 MG CONT INF (20:33)
[2023-01-06] MEDS: Dicyclomine 10 MG Capsule PO (20:33)
[2023-01-06 20:58] LABS: Bedside Glucose 117 mg/dL (74-106)
[2023-01-07] VITALS (7 sets, daily range): BP systolic 118–153; BP diastolic 62–69; PULSE 68–96; RESP 12–18; TEMP 35.9–36.8; O2SAT 94–97
[2023-01-07 03:52] LABS: Absolute Lymphocyte Count 2.51 X10^3/uL (0.83-4.51); Absolute Neutrophil Count 6.3 X10^3/uL (2.0-7.7); Basophil# 0.03 X10^3/uL; Basophil% 0.3 % (0-1); Eosinophil# 0.51 X10^3/uL; Eosinophils% 5.1 % (0-5); Hematocrit 37.3 % (37-47); Hemoglobin 11.4 g/dL (12.0-15.0); Lymphocyte # 2.51 X10^3/ul (0.83-4.51); Lymphocyte % 25.1 % (19-41); Mean Corp Hgb Conc 30.6 g/dL (32-36); Mean Corpuscular Hgb 26.8 pg (27.0-32.0); Mean Corpuscular Volume 87.8 fL (81-99); Mean Platelet Vol. 12.1 fl (6.2-12.0); Monocyte# 0.62 X10^3/uL; Monocyte% 6.2 % (0-10); NRBC Flagged by Analyzer 0 % (0-5); Neutrophil # 6.28 X10^3/uL (2.7-7.7); Neutrophil % 62.7 % (47-70); Platelet Count 164 K/mm3 (150-450); RBC Distribution Width CV 16.1 % (11.6-14.6); RBC Distribution Width SD 51.7 fl (35.1-43.9); Red Blood Count 4.25 M/mm3 (4.2-5.4)
[2023-01-07 04:06] LABS: Anion Gap 3 (5-15); BUN 40 mg/dL (7-18); BUN/Creat Ratio 14.2 RATIO (10-20); Calcium,Total 7.6 mg/dL (8.5-10.1); Chloride 112 mmol/L (98-107); Creatinine, Serum 2.81 mg/dL (0.55-1.02); EST Glomerular Filtration Rate 18 mL/min (>60); Est Glom Filt Rate - Afr Amer 22 mL/min (>60); Estimated Creatinine Clearance 19.67 ml/min; Glucose 60 mg/dL (74-106); Magnesium 1.3 mg/dL (1.6-2.6); Potassium 3.6 mmol/L (3.5-5.1); Sodium Level 139 mmol/L (136-145)
[2023-01-07 04:11] LABS: Phosphorus 2.8 mg/dL (2.5-4.9)
[2023-01-07] MEDS: 0.9% Normal Saline (1000mL) 1,000 ML 150 ML IV ×3 (04:48→18:43)
[2023-01-07] MEDS: Octreotide 0.5 MG in Dextrose 5%-Water (250mL Bag) 249 ML 25 MG CONT INF ×2 (04:48→16:08)
[2023-01-07] MEDS: lamoTRIgine 100 MG Tablet PO (08:24)
[2023-01-07] MEDS: Isosorbide DN 30 MG Tablet PO ×2 (08:24→22:19)
[2023-01-07] MEDS: Pantoprazole Sodium 40 MG Tablet PO (08:24)
[2023-01-07] MEDS: Metoprolol Tartrate 50 MG Tablet PO ×2 (08:24→22:18)
[2023-01-07] MEDS: DULoxetine Hcl 30 MG Capsule 90 MG PO (08:24)
[2023-01-07] MEDS: Dicyclomine 10 MG Capsule 20 MG PO (08:25)
[2023-01-07] MEDS: Pregabalin 75 MG Capsule PO ×2 (08:28→22:17)
[2023-01-07 08:30] LABS: Bedside Glucose 53 mg/dL (74-106)
[2023-01-07] MEDS: Cefepime HCl 1 GM in 0.9% Normal Saline (50mL MB+) 50 ML IV (08:30)
--- NOTE | 2023-01-07 09:30 | PN_ITS ---
Subjective Subjective Patient seen and examined. She still complains of pain in her back and legs which is chronic. Cr is trending downwards. REview of systems is otherwise negative. She has remained hemodynamically stable Objective Data Objective Data Vital Signs: Vital Signs Temp Pulse Resp BP Pulse Ox O2 Del Method O2 Flow Rate 97.3 F L 76 18 142/68 H 95 Room Air 2 01/07/23 08:21 01/07/23 08:24 01/07/23 08:21 01/07/23 08:21 01/07/23 08:21 01/07/23 08:32 01/06/23 11:28 Oxygen Flow Rate (L/min) 2 Oxygen Delivery Method Room Air Weight: 194 lb 10.691 oz Body Mass Index (BMI) 30.4 Intake & Output: Intake and Output for Last 24 Hours 01/05/23 01/06/23 01/07/23 23:59 23:59 23:59 Intake Total 7632.09 / 7632.09 5620.0 / 5620.0 1036.25 / 1036.25 Output Total 5455 / 5455 3800 / 3800 600 / 600 Balance 2177.09 / 2177.09 1820.0 / 1820.0 436.25 / 436.25 Lab / Micro Data 01/07/23 03:45 01/07/23 03:45 Labs: Laboratory Results - last 24 hr 01/04/23 20:29: Diff Path Review Reviewed 01/05/23 03:35: Diff Path Review Reviewed 01/06/23 08:16: POC Glucose 54 L 01/06/23 08:34: POC Glucose 55 L 01/06/23 08:52: POC Glucose 59 L 01/06/23 09:13: POC Glucose 58 L 01/06/23 10:07: POC Glucose 162 H 01/06/23 11:12: POC Glucose 166 H 01/06/23 16:26: POC Glucose 136 H 01/06/23 20:31: POC Glucose 117 H 01/07/23 03:45: WBC 10.0, RBC 4.25, Hgb 11.4 L, Hct 37.3, MCV 87.8, MCH 26.8 L, MCHC 30.6 L, RDW Std Deviation 51.7 H, RDW Coeff of Jan 16.1 H, Plt Count 164, MPV 12.1 H, Immature Gran % (Auto) 0.600, Neut % (Auto) 62.7, Lymph % (Auto) 25.1, [place] % (Auto) 6.2, Eos % (Auto) 5.1 H, Baso % (Auto) 0.3, Absolute Neuts (auto) 6.3, Absolute Lymphs (auto) 2.51, Nucleated RBC % 0, Sodium 139, Potassium 3.6, Chloride 112 H, Carbon Dioxide 24.0, Anion Gap 3 L, BUN 40 H, Creatinine 2.81 H, Estim Creat Clear Calc 19.67, Est GFR (MDRD) Af Amer 22 L, Est GFR (MDRD) Non-Af 18 L, BUN/Creatinine Ratio 14.2, Glucose 60 L, Calcium 7.6 L, Phosphorus 2.8, Magnesium 1.3 L 01/07/23 08:12: POC Glucose 53 L Micro: Microbiology 01/06/23 00:05 Stool Stool Occult Blood (MAYTE) - Final Occult Blood Positive 01/04/23 20:32 Stool Stool Lactoferrin - Final 01/04/23 20:32 Stool Enteric Bacteriology - Final 01/04/23 20:32 Stool C. difficile DNA Amplification - Final Rhythm Strip Rhythm Strip: Sinus Tach Rate: 105 Ectopy: None Physical Exam Const alert, oriented x3, no apparent distress and well nourished General Appearance: cooperative and well developed HEENT normocephalic, head/scalp atraumatic, moist oral mucous membranes and oropharynx normal Eyes PERRL and EOMs intact bilaterally Neck no lymphadenopathy, supple and no JVD Lymph Lymphatic: no lymphadenopathy noted and no lymphedema noted Resp normal respiratory effort, normal air movement and clear to auscultation bilaterally Cardio regular rate, regular rhythm, S1 normal heart sound, S2 normal heart sound, no murmurs, no rub and no gallops GI normal to inspection, nondistended, normoactive bowel sounds, soft to palpation and non-distended GI Narrative: greenish liquid stool in the ileostomy bag Palpation: tender epigastric; Negative for guarding or rigid Extremity normal capillary refill, no clubbing, cyanosis or edema and no calf tenderness General Extremity: no tenderness to palpation of joints or extremities Skin General Skin Exam: no breakdown and turgor normal Neuro CN's II-XII intact bilaterally, no focal motor deficits, no sensory deficits noted and deep tendon reflexes 2+ bilaterally Motor Exam: strength 5/5 throughout and general weakness Psych thought process normal, cooperative and affect normal Appearance: appropriate Assessment & Plan Assessment/Plan (1) Metabolic acidosis: (2) Hyperkalemia, diminished renal excretion: (3) Acute renal failure: (4) Acute dehydration: (5) Gastroenteritis: PLAN: Plan #Acute gastroenteritis * improving. she was started on octreotide drip and PPI drip by GI * fluids increaed to 250cc/hr by GI yesterday * C diff is negative * wbc is further down to 10 today. blood cultures pending * remains on IV cefepime * on loperamide * stool for occult blood is positive, but this is likely due to the profuse diarrhea * #RALPH * CR is down to 2.81 today, from 4.6 yesterday. * nephrology on board. * being hydrated with IVF * improving significantly * #Type 2 diabetes mellitus; on ISS. Accuchecks ACHS. Dapagliflozin on hold. Also has insulin pump #History of ulcerative colitis: S/p ileostomy with resultant short gut syndrome. #Hypertension: On metoprolol and hydrochlorothiazide. #CAD: On aspirin and Plavix as well as high intensity statin. Also on imdur #Depression: On duloxetine #History of psoriasis. Used to be on Humira but was taken off of it during COV ID times due to concerns for immunosuppression. To follow-up with rheumatology on outpatient basis. #History of chronic pain: On buprenorphine patch and tramadol DVT prophylaxis; SCDs Charges/Coding Visit Charges Inpatient E&M: 62328 Subs Hosp L2
[2023-01-07] MEDS: Magnesium Sulfate 4gm/100mL 4 GM/100 ML IV.SOLN. IV (10:16)
[2023-01-07 12:18] LABS: Bedside Glucose 126 mg/dL (74-106)
--- NOTE | 2023-01-07 14:17 | PCM.PN.REN ---
Subjective Subjective Sitting in chair. No overnight events. Urine output has picked up, ostomy output slowed down. Reports still nauseated but has improved Objective Data Objective Data Vital Signs: Vital Signs Temp Pulse Resp BP Pulse Ox O2 Del Method O2 Flow Rate 98.3 F 68 14 123/66 H 94 Room Air 2 01/07/23 14:00 01/07/23 14:00 01/07/23 14:00 01/07/23 14:00 01/07/23 14:00 01/07/23 14:00 01/06/23 11:28 Oxygen Flow Rate (L/min) 2 Oxygen Delivery Method Room Air Weight: 88.3 kg Body Mass Index (BMI) 30.4 Intake & Output: Intake and Output for Last 24 Hours 01/05/23 01/06/23 01/07/23 23:59 23:59 23:59 Intake Total 7632.09 / 7632.09 5620.0 / 5620.0 2086.25 / 2086.25 Output Total 5455 / 5455 3800 / 3800 1700 / 1700 Balance 2177.09 / 2177.09 1820.0 / 1820.0 386.25 / 386.25 Lab / Micro Data 01/07/23 03:45 01/07/23 03:45 Labs: Laboratory Results - last 24 hr 01/06/23 16:26: POC Glucose 136 H 01/06/23 20:31: POC Glucose 117 H 01/07/23 03:45: WBC 10.0, RBC 4.25, Hgb 11.4 L, Hct 37.3, MCV 87.8, MCH 26.8 L, MCHC 30.6 L, RDW Std Deviation 51.7 H, RDW Coeff of Jan 16.1 H, Plt Count 164, MPV 12.1 H, Immature Gran % (Auto) 0.600, Neut % (Auto) 62.7, Lymph % (Auto) 25.1, [place] % (Auto) 6.2, Eos % (Auto) 5.1 H, Baso % (Auto) 0.3, Absolute Neuts (auto) 6.3, Absolute Lymphs (auto) 2.51, Nucleated RBC % 0, Sodium 139, Potassium 3.6, Chloride 112 H, Carbon Dioxide 24.0, Anion Gap 3 L, BUN 40 H, Creatinine 2.81 H, Estim Creat Clear Calc 19.67, Est GFR (MDRD) Af Amer 22 L, Est GFR (MDRD) Non-Af 18 L, BUN/Creatinine Ratio 14.2, Glucose 60 L, Calcium 7.6 L, Phosphorus 2.8, Magnesium 1.3 L 01/07/23 08:12: POC Glucose 53 L 01/07/23 12:00: POC Glucose 126 H Micro: Microbiology 01/06/23 00:05 Stool Stool Occult Blood (MAYTE) - Final Occult Blood Positive 01/04/23 20:32 Stool Stool Lactoferrin - Final 01/04/23 20:32 Stool Enteric Bacteriology - Final 01/04/23 20:32 Stool C. difficile DNA Amplification - Final Rhythm Strip Rhythm Strip: Sinus Tach Rate: 105 Ectopy: None Physical Exam Narrative Alert and oriented x3, no apparent distress Oral mucosa dry, lips dry S1, S2, RRR Lung sounds clear Abdomen soft, ostomy bag with green watery stool No edema Norris with clear yellow urine Assessment & Plan Assessment/Plan (1) Acute renal failure: (2) CKD (chronic kidney disease), stage IV: (3) Metabolic acidosis: PLAN: Plan This is a pleasant 62-year-old female with past medical history significant for ulcerative colitis status post proctocolectomy with J-pouch, proximal diversion with loop ileostomy with 270 cm small bowel remaining complicated by frequent high output, type 2 diabetes mellitus with associated gastroparesis, MGUS, COPD, CAD status post PCI and CABG x4, hypertension, hyperlipidemia, depression and anxiety and CKD who presented to emergency room with complaints of feeling unwell, abdominal cramping and noticing large amount of watery green output from ostomy bag. Nephrology consulted in view of rising creatinine. -Hypovolemic RALPH superimposed on CKD stage IIIb; RALPH secondary to ischemic ATN from severe volume depletion. SCr 3.3mg/dL on admission--> peaked 4.92 and today SCr 2.81. Potassium was 6.6, now normalized. Bicarb 24. Renal ultrasound no hydro. Urine output is picking up. Ostomy output is slowing down. Currently on IV fluids. Chest x-ray was clear on admission. No acute indication for ABAP DEVELOPER at this time and overall renal function improving. Ok to remove norris - CKD stage III/IV with baseline creatinine ranging around 1.7- 2mg/dL. -Blood pressures were low but have improved, on metoprolol with holding parameters -History of ulcerative colitis with ostomy. Patient was having high output from ostomy on admission but has overall improved. GI following. On octreotide drip.
--- NOTE | 2023-01-07 16:28 | CASEMGMT ---
SVETLANA RAINEY NOTE: Reviewed therapy notes from today. Pt ambulated 15 ft w/min A and w/use of WW and additional therapy recommended. SVETLANA RAINEY to room. Pt is still declining wanting any HHC or therapy. Pt made aware to ask for SVETLANA RAINEY if she has any discharge planning needs or concerns. Mitchel IVAN RN, CM
[2023-01-07 17:22] LABS: Bedside Glucose 140 mg/dL (74-106)
[2023-01-07] MEDS: traMADol 50 MG Tablet PO (22:17)
[2023-01-07] MEDS: Loperamide 2 MG Capsule PO (22:19)
[2023-01-07] MEDS: Dicyclomine 10 MG Capsule PO (22:19)
[2023-01-07 22:26] LABS: Bedside Glucose 110 mg/dL (74-106)
[2023-01-08] VITALS (7 sets, daily range): BP systolic 132–168; BP diastolic 61–75; PULSE 70–86; RESP 16–24; TEMP 36.8–37; O2SAT 92–95
[2023-01-08] MEDS: 0.9% Normal Saline (1000mL) 1,000 ML 150 ML IV ×4 (01:35→21:52)
[2023-01-08] MEDS: Octreotide 0.5 MG in Dextrose 5%-Water (250mL Bag) 249 ML 25 MG CONT INF ×3 (01:35→21:52)
[2023-01-08 03:25] LABS: Absolute Lymphocyte Count 1.68 X10^3/uL (0.83-4.51); Absolute Neutrophil Count 4.8 X10^3/uL (2.0-7.7); Basophil# 0.04 X10^3/uL; Basophil% 0.5 % (0-1); Eosinophil# 0.39 X10^3/uL; Eosinophils% 5.3 % (0-5); Hematocrit 36.7 % (37-47); Hemoglobin 11.2 g/dL (12.0-15.0); Lymphocyte # 1.68 X10^3/ul (0.83-4.51); Lymphocyte % 22.9 % (19-41); Mean Corp Hgb Conc 30.5 g/dL (32-36); Mean Corpuscular Hgb 27.1 pg (27.0-32.0); Mean Corpuscular Volume 88.9 fL (81-99); Mean Platelet Vol. 11.6 fl (6.2-12.0); Monocyte# 0.38 X10^3/uL; Monocyte% 5.2 % (0-10); NRBC Flagged by Analyzer 0 % (0-5); Neutrophil # 4.78 X10^3/uL (2.7-7.7); Neutrophil % 65.1 % (47-70); Platelet Count 179 K/mm3 (150-450); RBC Distribution Width CV 16.1 % (11.6-14.6); RBC Distribution Width SD 51.9 fl (35.1-43.9); Red Blood Count 4.13 M/mm3 (4.2-5.4); White Blood Count 7.3 K/mm3 (4.4-11.0)
[2023-01-08 03:39] LABS: Anion Gap 2 (5-15); BUN 26 mg/dL (7-18); BUN/Creat Ratio 12.9 RATIO (10-20); Calcium,Total 7.9 mg/dL (8.5-10.1); Chloride 115 mmol/L (98-107); Creatinine, Serum 2.01 mg/dL (0.55-1.02); EST Glomerular Filtration Rate 27 mL/min (>60); Est Glom Filt Rate - Afr Amer 32 mL/min (>60); Glucose 66 mg/dL (74-106); Potassium 3.8 mmol/L (3.5-5.1); Sodium Level 141 mmol/L (136-145)
[2023-01-08 08:40] LABS: Bedside Glucose 213 mg/dL (74-106)
[2023-01-08] MEDS: Ondansetron 4 MG/2 ML Vial IV (08:46)
[2023-01-08] MEDS: DULoxetine Hcl 30 MG Capsule 90 MG PO (09:00)
[2023-01-08] MEDS: Pantoprazole Sodium 40 MG Tablet PO (09:00)
[2023-01-08] MEDS: lamoTRIgine 100 MG Tablet PO (09:00)
[2023-01-08] MEDS: Metoprolol Tartrate 50 MG Tablet PO ×2 (09:00→21:53)
[2023-01-08] MEDS: Isosorbide DN 30 MG Tablet PO ×2 (09:01→21:53)
[2023-01-08] MEDS: Cefepime HCl 1 GM in 0.9% Normal Saline (50mL MB+) 50 ML IV (09:03)
[2023-01-08] MEDS: Pregabalin 75 MG Capsule PO ×2 (09:03→21:53)
[2023-01-08] MEDS: Loperamide 2 MG Capsule PO (09:03)
--- NOTE | 2023-01-08 10:05 | PN_ITS ---
Subjective Subjective Patient seen and examined. She has no complaints today. She is feeling much better. She had an uneventful night. Cr continues to trend downwards. REview of systems is otherwise negative. output from ileostomy has also slowed down Objective Data Objective Data Vital Signs: Vital Signs Temp Pulse Resp BP Pulse Ox O2 Del Method O2 Flow Rate 98.3 F 75 18 147/69 H 92 Room Air 2 01/08/23 08:52 01/08/23 09:00 01/08/23 08:52 01/08/23 08:52 01/08/23 08:52 01/08/23 08:54 01/06/23 11:28 Oxygen Flow Rate (L/min) 2 Oxygen Delivery Method Room Air Weight: 194 lb 10.691 oz Body Mass Index (BMI) 30.4 Intake & Output: Intake and Output for Last 24 Hours 01/06/23 01/07/23 01/08/23 23:59 23:59 23:59 Intake Total 5620.0 / 5620.0 5476.25 / 5476.25 2436.25 / 2436.25 Output Total 3800 / 3800 4125 / 4125 350 / 350 Balance 1820.0 / 1820.0 1351.25 / 1351.25 2086.25 / 2086.25 Lab / Micro Data 01/08/23 03:15 01/08/23 03:15 Labs: Laboratory Results - last 24 hr 01/07/23 12:00: POC Glucose 126 H 01/07/23 16:56: POC Glucose 140 H 01/07/23 22:06: POC Glucose 110 H 01/08/23 03:15: WBC 7.3, RBC 4.13 L, Hgb 11.2 L, Hct 36.7 L, MCV 88.9, MCH 27.1, MCHC 30.5 L, RDW Std Deviation 51.9 H, RDW Coeff of Jan 16.1 H, Plt Count 179, MPV 11.6, Immature Gran % (Auto) 1.000 H, Neut % (Auto) 65.1, Lymph % (Auto) 22.9, [place] % (Auto) 5.2, Eos % (Auto) 5.3 H, Baso % (Auto) 0.5, Absolute Neuts (auto) 4.8, Absolute Lymphs (auto) 1.68, Nucleated RBC % 0, Sodium 141, Potassium 3.8, Chloride 115 H, Carbon Dioxide 24.0, Anion Gap 2 L, BUN 26 H, Creatinine 2.01 H, Estim Creat Clear Calc 27.50, Est GFR (MDRD) Af Amer 32 L, Est GFR (MDRD) Non-Af 27 L, BUN/Creatinine Ratio 12.9, Glucose 66 L, Calcium 7.9 L, Magnesium 2.0 01/08/23 08:20: POC Glucose 213 H Micro: Microbiology 01/06/23 00:05 Stool Stool Occult Blood (MAYTE) - Final Occult Blood Positive 01/04/23 20:32 Stool Stool Lactoferrin - Final 01/04/23 20:32 Stool Enteric Bacteriology - Final 01/04/23 20:32 Stool C. difficile DNA Amplification - Final Rhythm Strip Rhythm Strip: Sinus Tach Rate: 105 Ectopy: None Physical Exam Const alert, oriented x3, no apparent distress and well nourished General Appearance: cooperative and well developed HEENT normocephalic, head/scalp atraumatic, moist oral mucous membranes and oropharynx normal Eyes PERRL and EOMs intact bilaterally Neck no lymphadenopathy, supple and no JVD Lymph Lymphatic: no lymphadenopathy noted and no lymphedema noted Resp normal respiratory effort, normal air movement and clear to auscultation bilaterally Cardio regular rate, regular rhythm, S1 normal heart sound, S2 normal heart sound, no murmurs, no rub and no gallops GI normal to inspection, nondistended, normoactive bowel sounds, soft to palpation and non-distended GI Narrative: greenish liquid stool in the ileostomy bag, output is decreasing Palpation: Negative for guarding or rigid Extremity normal capillary refill, no clubbing, cyanosis or edema and no calf tenderness General Extremity: no tenderness to palpation of joints or extremities Skin General Skin Exam: no breakdown and turgor normal Neuro CN's II-XII intact bilaterally, no focal motor deficits, no sensory deficits noted and deep tendon reflexes 2+ bilaterally Motor Exam: strength 5/5 throughout and general weakness Psych thought process normal, cooperative and affect normal Appearance: appropriate Assessment & Plan Assessment/Plan (1) Metabolic acidosis: (2) Hyperkalemia, diminished renal excretion: (3) Acute renal failure: (4) Acute dehydration: (5) Gastroenteritis: PLAN: Plan #Acute gastroenteritis * improving. she was started on octreotide drip and PPI drip by GI * maldonado 250cc/hr * C diff is negative * wbc is down to 7.3 today. blood cultures still pending. Will dc antibiotics as wbc has trended down and she feels much better. * will dc IV cefepime * on loperamide * stool for occult blood is positive, but this is likely due to the profuse diarrhea * #RALPH * CR keeps improving and is down to 2.01 today * nephrology on board. * being hydrated with IVF * #Type 2 diabetes mellitus; on ISS. Accuchecks ACHS. Dapagliflozin on hold. Also has insulin pump #History of ulcerative colitis: S/p ileostomy with resultant short gut syndrome. #Hypertension: On metoprolol and hydrochlorothiazide. #CAD: On aspirin and Plavix as well as high intensity statin. Also on imdur #Depression: On duloxetine #History of psoriasis. Used to be on Humira but was taken off of it during COVID times due to concerns for immunosuppression. To follow-up with rheumatology on outpatient basis. #History of chronic pain: On buprenorphine patch and tramadol DVT prophylaxis; SCDs Charges/Coding Visit Charges Inpatient E&M: 04711 Subs Hosp L2
[2023-01-08] MEDS: proCHLORPERazine 10 MG/2 ML Vial 5 MG IV (11:35)
[2023-01-08] MEDS: Dicyclomine 10 MG Capsule 20 MG PO (11:35)
[2023-01-08 12:12] LABS: Bedside Glucose 356 mg/dL (74-106)
[2023-01-08] MEDS: Insulin Lispro 100 UNIT/ML INSULN.PEN SC ×3 (12:57→21:52)
--- NOTE | 2023-01-08 14:22 | PCM.PN.REN ---
Subjective Subjective Resting in bed, states had some nausea and dry heaves this am. States urinating without any issues after norris removed. Objective Data Objective Data Vital Signs: Vital Signs Temp Pulse Resp BP Pulse Ox O2 Del Method O2 Flow Rate 98.3 F 75 18 147/69 H 92 Room Air 2 01/08/23 08:52 01/08/23 09:00 01/08/23 08:52 01/08/23 08:52 01/08/23 08:52 01/08/23 08:54 01/06/23 11:28 Oxygen Flow Rate (L/min) 2 Oxygen Delivery Method Room Air Weight: 88.3 kg Body Mass Index (BMI) 30.4 Intake & Output: Intake and Output for Last 24 Hours 01/06/23 01/07/23 01/08/23 23:59 23:59 23:59 Intake Total 5620.0 / 5620.0 5476.25 / 5476.25 2736.25 / 2736.25 Output Total 3800 / 3800 4125 / 4125 750 / 750 Balance 1820.0 / 1820.0 1351.25 / 1351.25 1985.25 / 1985.25 Lab / Micro Data 01/08/23 03:15 01/08/23 03:15 Labs: Laboratory Results - last 24 hr 01/07/23 16:56: POC Glucose 140 H 01/07/23 22:06: POC Glucose 110 H 01/08/23 03:15: WBC 7.3, RBC 4.13 L, Hgb 11.2 L, Hct 36.7 L, MCV 88.9, MCH 27.1, MCHC 30.5 L, RDW Std Deviation 51.9 H, RDW Coeff of Jan 16.1 H, Plt Count 179, MPV 11.6, Immature Gran % (Auto) 1.000 H, Neut % (Auto) 65.1, Lymph % (Auto) 22.9, [place] % (Auto) 5.2, Eos % (Auto) 5.3 H, Baso % (Auto) 0.5, Absolute Neuts (auto) 4.8, Absolute Lymphs (auto) 1.68, Nucleated RBC % 0, Sodium 141, Potassium 3.8, Chloride 115 H, Carbon Dioxide 24.0, Anion Gap 2 L, BUN 26 H, Creatinine 2.01 H, Estim Creat Clear Calc 27.50, Est GFR (MDRD) Af Amer 32 L, Est GFR (MDRD) Non-Af 27 L, BUN/Creatinine Ratio 12.9, Glucose 66 L, Calcium 7.9 L, Magnesium 2.0 01/08/23 08:20: POC Glucose 213 H 01/08/23 11:53: POC Glucose 356 H Micro: Microbiology 01/05/23 16:05 Blood Culture (Wb) - Right Wrist Blood Culture - Preliminary No growth in 48 hours. 01/05/23 15:55 Blood Culture (Wb) - Anticubital Right Blood Culture - Preliminary No growth in 48 hours. 01/06/23 00:05 Stool Stool Occult Blood (MAYTE) - Final Occult Blood Positive 01/04/23 20:32 Stool Stool Lactoferrin - Final 01/04/23 20:32 Stool Enteric Bacteriology - Final 01/04/23 20:32 Stool C. difficile DNA Amplification - Final Rhythm Strip Rhythm Strip: Sinus Tach Rate: 105 Ectopy: None Physical Exam Narrative Alert and oriented x3, no apparent distress Oral mucosa dry, lips dry S1, S2, RRR Lung sounds clear Abdomen soft, + ostomy bag No edema Assessment & Plan Assessment/Plan (1) Acute renal failure: (2) CKD (chronic kidney disease), stage IV: (3) Metabolic acidosis: PLAN: Plan This is a pleasant 62-year-old female with past medical history significant for ulcerative colitis status post proctocolectomy with J-pouch, proximal diversion with loop ileostomy with 270 cm small bowel remaining complicated by frequent high output, type 2 diabetes mellitus with associated gastroparesis, MGUS, COPD, CAD status post PCI and CABG x4, hypertension, hyperlipidemia, depression and anxiety and CKD who presented to emergency room with complaints of feeling unwell, abdominal cramping and noticing large amount of watery green output from ostomy bag. Nephrology consulted in view of rising creatinine. -Hypovolemic RALPH superimposed on CKD stage IIIb; RALPH secondary to ischemic ATN from severe volume depletion. SCr 3.3mg/dL on admission--> peaked 4.92 and today SCr 2.01. Potassium was 6.6, now normalized. Bicarb 24. Renal ultrasound no hydro. Urine output is picking up. Ostomy output is slowing down. Currently on IV fluids. Chest x-ray was clear on admission. No acute indication for HOSPICE NURSE PRACTITIONER, overall renal function improving and near baseline. Will arrange for hospital follow up. - CKD stage III/IV with baseline creatinine ranging around 1.7- 2mg/dL. -Blood pressures were low but have improved, on metoprolol with holding parameters -History of ulcerative colitis with ostomy. Patient was having high output from ostomy on admission but has overall improved. GI following. On octreotide drip.
[2023-01-08 17:02] LABS: Bedside Glucose 272 mg/dL (74-106)
[2023-01-08] MEDS: Dicyclomine 10 MG Capsule PO (21:52)
[2023-01-08 22:53] LABS: Bedside Glucose 249 mg/dL (74-106)
--- NOTE | 2023-01-08 23:53 | PCM.HOSP.N ---
Hospitalist Note Patient complaining of increased fatigue, malaise and congestion. She requested specifically a COVID test be performed. She notes her tested positive with COVID the week prior. Patient tested and her test resulted + COVID. She did have oxygenation per review occasionally <94% but given review of noted + guiac will defer any usage of steroids.
[2023-01-09] VITALS (7 sets, daily range): BP systolic 160–190; BP diastolic 68–75; PULSE 73–84; RESP 18–20; TEMP 36.9–37.1; O2SAT 93–100
[2023-01-09 02:37] LABS: Bedside Glucose 112 mg/dL (74-106)
[2023-01-09] MEDS: 0.9% Normal Saline (1000mL) 1,000 ML 150 ML IV ×3 (05:05→18:06)
[2023-01-09] MEDS: Insulin Lispro 100 UNIT/ML INSULN.PEN SC ×4 (06:55→23:59)
[2023-01-09 07:14] LABS: Bedside Glucose 224 mg/dL (74-106)
--- NOTE | 2023-01-09 08:01 | PCM.PN.HOSP ---
Reason for Visit Reason for Visit: Diagnoses Type 2 diabetes mellitus with hyperglycemia (01/04/23) Other obesity due to excess calories (01/04/23) Dehydration (01/04/23) Acidosis, unspecified (01/04/23) Hyperkalemia (01/04/23) Noninfective gastroenteritis and colitis, unspecified (01/04/23) Acute kidney failure, unspecified (01/04/23) Chronic kidney disease, stage 4 (severe) (01/04/23) Chronic kidney disease, unspecified (01/04/23) Chest pain, unspecified (01/04/23) Other specified symptoms and signs involving the digestive system and abdomen (01/04/23) Body mass index [BMI] 31.0-31.9, adult (01/04/23) [facility] (current) use of insulin (01/04/23) Ileostomy status (01/04/23) Subjective Subjective No ostomy output. Started feeling ill yesterday. Objective Data Objective Data Vital Signs: Vital Signs Temp Pulse Resp BP Pulse Ox O2 Del Method O2 Flow Rate 37.1 C 75 18 160/75 H 98 Room Air 2 01/09/23 03:30 01/09/23 03:30 01/09/23 03:30 01/09/23 03:30 01/09/23 03:30 01/09/23 03:30 01/09/23 03:30 Oxygen Flow Rate (L/min) 2 Oxygen Delivery Method Room Air Weight: 88.3 kg Body Mass Index (BMI) 30.4 Intake & Output: Intake and Output for Last 24 Hours 01/07/23 01/08/23 01/09/23 23:59 23:59 23:59 Intake Total 5476.25 / 5476.25 4788.75 / 4788.75 1250 / 1250 Output Total 4125 / 4125 1000 / 1000 Balance 1351.25 / 1351.25 3788.75 / 3788.75 1250 / 1250 Lab / Micro Data 01/09/23 07:03 01/09/23 07:03 Labs: Laboratory Results - last 24 hr 01/08/23 06:19: POC Glucose 112 H 01/08/23 08:20: POC Glucose 213 H 01/08/23 11:53: POC Glucose 356 H 01/08/23 16:45: POC Glucose 272 H 01/08/23 21:49: POC Glucose 249 H 01/09/23 06:54: POC Glucose 224 H Micro: Microbiology 01/08/23 22:10 Nasal Secretion SARS-CoV-2 Antigen (Rapid) - Final SARS-CoV-2 (COVID 19) 01/05/23 16:05 Blood Culture (Wb) - Right Wrist Blood Culture - Preliminary No growth in 48 hours. 01/05/23 15:55 Blood Culture (Wb) - Anticubital Right Blood Culture - Preliminary No growth in 48 hours. 01/06/23 00:05 Stool Stool Occult Blood (MAYTE) - Final Occult Blood Positive 01/04/23 20:32 Stool Stool Lactoferrin - Final 01/04/23 20:32 Stool Enteric Bacteriology - Final 01/04/23 20:32 Stool C. difficile DNA Amplification - Final Rhythm Strip Rhythm Strip: Sinus Tach Rate: 105 Ectopy: None Physical Exam Const alert and no apparent distress HEENT head/scalp atraumatic and moist oral mucous membranes Resp normal respiratory effort, no retractions, no use of accessory muscles and clear to auscultation bilaterally Cardio regular rate, regular rhythm, S1 normal heart sound and S2 normal heart sound GI normal to inspection, nondistended, normoactive bowel sounds, soft to palpation and non-tender Assessment & Plan Assessment/Plan (1) High output ileostomy: PLAN: 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 Chronically takes loperamide PRN, PPI and Lomotil QID On octreotide gtt since 01/06. Will discontinue today (2) Acute renal failure: PLAN: POA, then peaked at 4.92 Baseline around 1.75 CR keeps improving and is down to 2.01 nephrology on board. being hydrated with IVF (3) COVID-19: PLAN: + on 01/08. That will be day 0. Quarantine through 01/18 Has been on room air. CXR on the was unremarkable No treatment at this time. (4) Metabolic acidosis: PLAN: POA 2/2 RALPH resolved (5) Hyperkalemia, diminished renal excretion: PLAN: POA 2/2 RALPH PLAN: Plan Chronic conditions: Type 2 diabetes mellitus; on ISS. Accuchecks ACHS. Dapagliflozin on hold. Also has insulin pump History of ulcerative colitis: S/p ileostomy with resultant short gut syndrome. Hypertension: On metoprolol. Hydrochlorothiazide held due to RALPH. CAD: On aspirin and Plavix as well as high intensity statin. Also on imdur Depression: On duloxetine History of psoriasis. Used to be on Humira but was taken off of it during COVID times due to concerns for immunosuppression. To follow-up with rheumatology on outpatient basis. History of chronic pain: On buprenorphine patch. Follow up with pain mgmt. I reviewed her OARRS and she received 4 buprenorphine patches on the the along with 56 pregabalin. DVT prophylaxis; SCDs Disposition: TBD. Monitor overnight. Hopefully discharge in AM. Charges/Coding Visit Charges Inpatient E&M: 14599 Subs Hosp L2
[2023-01-09 08:10] LABS: Absolute Lymphocyte Count 1.08 X10^3/uL (0.83-4.51); Absolute Neutrophil Count 3.7 X10^3/uL (2.0-7.7); Basophil# 0.04 X10^3/uL; Basophil% 0.7 % (0-1); Eosinophil# 0.13 X10^3/uL; Eosinophils% 2.3 % (0-5); Hematocrit 35.8 % (37-47); Hemoglobin 11.1 g/dL (12.0-15.0); Lymphocyte # 1.08 X10^3/ul (0.83-4.51); Lymphocyte % 19.1 % (19-41); Mean Corpuscular Hgb 26.9 pg (27.0-32.0); Mean Corpuscular Volume 86.9 fL (81-99); Mean Platelet Vol. 11.9 fl (6.2-12.0); Monocyte# 0.52 X10^3/uL; Monocyte% 9.2 % (0-10); NRBC Flagged by Analyzer 0 % (0-5); Neutrophil # 3.71 X10^3/uL (2.7-7.7); Neutrophil % 65.5 % (47-70); Platelet Count 165 K/mm3 (150-450); RBC Distribution Width CV 15.8 % (11.6-14.6); Red Blood Count 4.12 M/mm3 (4.2-5.4); White Blood Count 5.7 K/mm3 (4.4-11.0)
[2023-01-09 08:59] LABS: Anion Gap 8 (5-15); BUN 19 mg/dL (7-18); BUN/Creat Ratio 11.4 RATIO (10-20); Calcium,Total 7.9 mg/dL (8.5-10.1); Chloride 103 mmol/L (98-107); Creatinine, Serum 1.66 mg/dL (0.55-1.02); EST Glomerular Filtration Rate 33 mL/min (>60); Est Glom Filt Rate - Afr Amer 40 mL/min (>60); Estimated Creatinine Clearance 33.29 ml/min; Glucose 230 mg/dL (74-106); Potassium 3.9 mmol/L (3.5-5.1); Sodium Level 135 mmol/L (136-145)
[2023-01-09] MEDS: Cefepime HCl 1 GM in 0.9% Normal Saline (50mL MB+) 50 ML IV (09:23)
[2023-01-09] MEDS: Pantoprazole Sodium 40 MG Tablet PO (09:23)
[2023-01-09] MEDS: Metoprolol Tartrate 50 MG Tablet PO ×2 (09:24→23:57)
[2023-01-09] MEDS: DULoxetine Hcl 30 MG Capsule 90 MG PO (09:24)
[2023-01-09] MEDS: Dicyclomine 10 MG Capsule 20 MG PO (09:24)
[2023-01-09] MEDS: Isosorbide DN 30 MG Tablet PO ×2 (09:24→23:58)
[2023-01-09] MEDS: lamoTRIgine 100 MG Tablet PO (09:25)
[2023-01-09] MEDS: Pregabalin 75 MG Capsule PO ×2 (09:34→23:58)
[2023-01-09] MEDS: Octreotide 0.5 MG in Dextrose 5%-Water (250mL Bag) 249 ML 25 MG CONT INF (10:03)
--- NOTE | 2023-01-09 11:41 | NURSING ---
of patient brought in home medication- weekly patch buprenorphine- new unopened box- sent to pharmacy for verification. Patient states that she changes patched at night time before going to bed. Pharmacy notified.
[2023-01-09 11:45] LABS: Bedside Glucose 228 mg/dL (74-106)
--- NOTE | 2023-01-09 13:08 | PN.RENAL_ITS ---
Subjective Subjective No new events Objective Data Objective Data Vital Signs: Vital Signs Temp Pulse Resp BP Pulse Ox O2 Del Method O2 Flow Rate 98.6 F 74 18 163/69 H 98 Nasal Cannula 2 01/09/23 09:15 01/09/23 09:24 01/09/23 09:15 01/09/23 09:24 01/09/23 09:15 01/09/23 09:30 01/09/23 09:30 Oxygen Flow Rate (L/min) 2 Oxygen Delivery Method Nasal Cannula Weight: 88.3 kg Body Mass Index (BMI) 30.4 Intake & Output: Intake and Output for Last 24 Hours 01/07/23 01/08/23 01/09/23 23:59 23:59 23:59 Intake Total 5476.25 / 5476.25 4788.75 / 4788.75 2472.92 / 2472.92 Output Total 4125 / 4125 1000 / 1000 Balance 1351.25 / 1351.25 3788.75 / 3788.75 2472.92 / 2472.92 Lab / Micro Data 01/09/23 07:03 01/09/23 07:03 Labs: Laboratory Results - last 24 hr 01/08/23 06:19: POC Glucose 112 H 01/08/23 16:45: POC Glucose 272 H 01/08/23 21:49: POC Glucose 249 H 01/09/23 06:54: POC Glucose 224 H 01/09/23 07:03: WBC 5.7, RBC 4.12 L, Hgb 11.1 L, Hct 35.8 L, MCV 86.9, MCH 26.9 L, MCHC 31.0 L, RDW Std Deviation 50.0 H, RDW Coeff of Jan 15.8 H, Plt Count 165, MPV 11.9, Immature Gran % (Auto) 3.200 H, Neut % (Auto) 65.5, Lymph % (Auto) 19.1, [place] % (Auto) 9.2, Eos % (Auto) 2.3, Baso % (Auto) 0.7, Absolute Neuts (auto) 3.7, Absolute Lymphs (auto) 1.08, Nucleated RBC % 0, Sodium 135 L, Potassium 3.9, Chloride 103, Carbon Dioxide 24.0, Anion Gap 8, BUN 19 H, Creatinine 1.66 H, Estim Creat Clear Calc 33.29, Est GFR (MDRD) Af Amer 40 L, Est GFR (MDRD) Non-Af 33 L, BUN/Creatinine Ratio 11.4, Glucose 230 H, Calcium 7.9 L 01/09/23 11:16: POC Glucose 228 H Micro: Microbiology 01/08/23 22:10 Nasal Secretion SARS-CoV-2 Antigen (Rapid) - Final SARS-CoV-2 (COVID 19) 01/05/23 16:05 Blood Culture (Wb) - Right Wrist Blood Culture - Preliminary No growth in 48 hours. 01/05/23 15:55 Blood Culture (Wb) - Anticubital Right Blood Culture - Preliminary No growth in 48 hours. 01/06/23 00:05 Stool Stool Occult Blood (MAYTE) - Final Occult Blood Positive 01/04/23 20:32 Stool Stool Lactoferrin - Final 01/04/23 20:32 Stool Enteric Bacteriology - Final 01/04/23 20:32 Stool C. difficile DNA Amplification - Final Rhythm Strip Rhythm Strip: Sinus Tach Rate: 105 Ectopy: None Physical Exam Narrative Oral mucosa dry, lips dry S1, S2, RRR Lung sounds clear Abdomen soft, + ostomy bag No edema Assessment & Plan Assessment/Plan (1) Acute renal failure: (2) CKD (chronic kidney disease), stage IV: (3) Metabolic acidosis: PLAN: Plan This is a pleasant 62-year-old female with past medical history significant for ulcerative colitis status post proctocolectomy with J-pouch, proximal diversion with loop ileostomy with 270 cm small bowel remaining complicated by frequent high output, type 2 diabetes mellitus with associated gastroparesis, MGUS, COPD, CAD status post PCI and CABG x4, hypertension, hyperlipidemia, depression and anxiety and CKD who presented to emergency room with complaints of feeling unwell, abdominal cramping and noticing large amount of watery green output from ostomy bag. Nephrology consulted in view of rising creatinine. -Hypovolemic RALPH superimposed on CKD stage IIIb; RALPH secondary to ischemic ATN from severe volume depletion. SCr 3.3mg/dL on admission--> peaked 4.92 now improved. Potassium was 6.6, now normalized. Bicarb 24. Renal ultrasound no hydro. Urine output is picking up. Ostomy output is slowing down. - CKD stage III/IV with baseline creatinine ranging around 1.7- 2mg/dL. -Blood pressures were low but have improved -History of ulcerative colitis with ostomy. Patient was having high output from ostomy on admission but has overall improved. GI following.
[2023-01-09 16:46] LABS: Bedside Glucose 289 mg/dL (74-106)
[2023-01-09] MEDS: BUPRENORPHINE 15 MCG/HR PATCH 1 EACH TD (23:45)
[2023-01-09] MEDS: Dicyclomine 10 MG Capsule PO (23:57)
[2023-01-10] MEDS: 0.9% Normal Saline (1000mL) 1,000 ML 150 ML IV ×2 (00:02→06:02)
[2023-01-10 05:50] VITALS: BP 162/60; PULSE 64; RESP 22; TEMP 36.6; O2SAT 95
[2023-01-10] MEDS: Insulin Lispro 100 UNIT/ML INSULN.PEN SC (06:02)
[2023-01-10] MEDS: traMADol 50 MG Tablet PO (06:13)
[2023-01-10 06:26] LABS: Bedside Glucose 219 mg/dL (74-106)
[2023-01-10 06:26] LABS: Bedside Glucose 198 mg/dL (74-106)
--- NOTE | 2023-01-10 07:43 | PN.HOSP_ITS ---
Reason for Visit Reason for Visit: Diagnoses Type 2 diabetes mellitus with hyperglycemia (01/04/23) Other obesity due to excess calories (01/04/23) Dehydration (01/04/23) Acidosis, unspecified (01/04/23) Hyperkalemia (01/04/23) Noninfective gastroenteritis and colitis, unspecified (01/04/23) Acute kidney failure, unspecified (01/04/23) Chronic kidney disease, stage 4 (severe) (01/04/23) Chronic kidney disease, unspecified (01/04/23) Chest pain, unspecified (01/04/23) Other specified symptoms and signs involving the digestive system and abdomen (01/04/23) COVID-19 (01/04/23) Body mass index [BMI] 31.0-31.9, adult (01/04/23) [facility] (current) use of insulin (01/04/23) Ileostomy status (01/04/23) Subjective Subjective Tolerated some liquids. Liquid BMs. Objective Data Objective Data Vital Signs: Vital Signs Temp Pulse Resp BP Pulse Ox O2 Del Method O2 Flow Rate 36.6 C 64 22 H 162/60 H 95 Nasal Cannula 2 01/10/23 05:50 01/10/23 05:50 01/10/23 05:50 01/10/23 05:50 01/10/23 05:50 01/10/23 07:34 01/10/23 07:34 Oxygen Flow Rate (L/min) 2 Oxygen Delivery Method Nasal Cannula Weight: 88.3 kg Body Mass Index (BMI) 30.4 Intake & Output: Intake and Output for Last 24 Hours 01/08/23 01/09/23 01/10/23 23:59 23:59 22:59 Intake Total 4788.75 / 4788.75 3445.42 / 3445.42 1889 1890 Output Total 1000 / 1000 150 / 150 Balance 3788.75 / 3788.75 3295.42 / 3295.42 1889 Lab / Micro Data 01/10/23 07:50 01/10/23 07:50 Labs: Laboratory Results - last 24 hr 01/09/23 07:03: Sodium 135 L, Potassium 3.9, Chloride 103, Carbon Dioxide 24.0, Anion Gap 8, BUN 19 H, Creatinine 1.66 H, Estim Creat Clear Calc 33.29, Est GFR (MDRD) Af Amer 40 L, Est GFR (MDRD) Non-Af 33 L, BUN/Creatinine Ratio 11.4, Glucose 230 H, Calcium 7.9 L 01/09/23 11:16: POC Glucose 228 H 01/09/23 16:15: POC Glucose 289 H 01/09/23 23:47: POC Glucose 219 H 01/10/23 05:42: POC Glucose 198 H Micro: Microbiology 01/08/23 22:10 Nasal Secretion SARS-CoV-2 Antigen (Rapid) - Final SARS-CoV-2 (COVID 19) 01/05/23 16:05 Blood Culture (Wb) - Right Wrist Blood Culture - Preliminary No growth in 48 hours. 01/05/23 15:55 Blood Culture (Wb) - Anticubital Right Blood Culture - Preliminary No growth in 48 hours. 01/06/23 00:05 Stool Stool Occult Blood (MAYTE) - Final Occult Blood Positive 01/04/23 20:32 Stool Stool Lactoferrin - Final 01/04/23 20:32 Stool Enteric Bacteriology - Final 01/04/23 20:32 Stool C. difficile DNA Amplification - Final Rhythm Strip Rhythm Strip: Sinus Tach Rate: 105 Ectopy: None Physical Exam Const alert and no apparent distress HEENT head/scalp atraumatic and moist oral mucous membranes GI GI Narrative: ostomy w scant liquid stool . Assessment & Plan Assessment/Plan (1) High output ileostomy: PLAN: suspected exacerbation of short-gut syndrome in patient s/p proct ocolectomy w J-pouch, proximal diversion w loop ileostom w 270 cm small bowel remaining. Chronically takes loperamide PRN, PPI and Lomotil QID On octreotide gtt since 01/06. Will discontinue today (2) Acute renal failure: PLAN: Resolved POA, then peaked at 4.92 Baseline around 1.75 2/2 to high-put ileostomy (3) COVID-19: PLAN: Symptoms and test + on 01/08. That will be day 0. Quarantine through 01/18. Has been on room air. CXR on the was unremarkable No treatment at this time. I recommended patient quarantine through the and then to wear a mask for 5 days afterwards. (4) Metabolic acidosis: PLAN: POA 2/2 RALPH resolved (5) Hyperkalemia, diminished renal excretion: PLAN: POA 2/2 RALPH PLAN: Plan Chronic conditions: * Type 2 diabetes mellitus; on ISS. Accuchecks ACHS. Dapagliflozin on hold. Also has insulin pump * History of ulcerative colitis: S/p ileostomy with resultant short gut syndrome. * Hypertension: On metoprolol. Hydrochlorothiazide held due to RALPH. * CAD: On aspirin and Plavix as well as high intensity statin. Also on imdur * Depression: On duloxetine * History of psoriasis. Used to be on Humira but was taken off of it during COVID times due to concerns for immunosuppression. To follow-up with rheumatology on outpatient basis. * History of chronic pain: On buprenorphine patch. Follow up with pain mgmt. I reviewed her OARRS and she received 4 buprenorphine patches on the the along with 56 pregabalin. DVT prophylaxis; SCDs Disposition: To home today.
[2023-01-10 08:28] LABS: Absolute Lymphocyte Count 1.39 X10^3/uL (0.83-4.51); Absolute Neutrophil Count 4.9 X10^3/uL (2.0-7.7); Basophil# 0.05 X10^3/uL; Basophil% 0.7 % (0-1); Eosinophil# 0.16 X10^3/uL; Eosinophils% 2.2 % (0-5); Hematocrit 36.1 % (37-47); Hemoglobin 11.2 g/dL (12.0-15.0); Lymphocyte # 1.39 X10^3/ul (0.83-4.51); Lymphocyte % 18.9 % (19-41); Mean Corpuscular Hgb 27.1 pg (27.0-32.0); Mean Corpuscular Volume 87.2 fL (81-99); Mean Platelet Vol. 12.3 fl (6.2-12.0); Monocyte% 9.5 % (0-10); NRBC Flagged by Analyzer 0 % (0-5); Neutrophil # 4.87 X10^3/uL (2.7-7.7); Neutrophil % 66.1 % (47-70); Platelet Count 163 K/mm3 (150-450); RBC Distribution Width CV 15.8 % (11.6-14.6); RBC Distribution Width SD 50.1 fl (35.1-43.9); Red Blood Count 4.14 M/mm3 (4.2-5.4); White Blood Count 7.4 K/mm3 (4.4-11.0)
[2023-01-10 09:11] VITALS: BP 170/70; PULSE 70
[2023-01-10] MEDS: Dicyclomine 10 MG Capsule 20 MG PO (09:11)
[2023-01-10] MEDS: Pantoprazole Sodium 40 MG Tablet PO (09:11)
[2023-01-10] MEDS: Isosorbide DN 30 MG Tablet PO (09:11)
[2023-01-10] MEDS: DULoxetine Hcl 30 MG Capsule 90 MG PO (09:11)
[2023-01-10] MEDS: Metoprolol Tartrate 50 MG Tablet PO (09:11)
[2023-01-10] MEDS: lamoTRIgine 100 MG Tablet PO (09:11)
[2023-01-10] MEDS: Pregabalin 75 MG Capsule PO (09:12)
[2023-01-10] MEDS: Cefepime HCl 1 GM in 0.9% Normal Saline (50mL MB+) 50 ML IV (09:12)
[2023-01-10 09:14] VITALS: BP 170/70; PULSE 68; RESP 18; TEMP 36.9; O2SAT 96
[2023-01-10 09:20] LABS: Anion Gap 7 (5-15); BUN 17 mg/dL (7-18); BUN/Creat Ratio 11.6 RATIO (10-20); Chloride 101 mmol/L (98-107); Creatinine, Serum 1.46 mg/dL (0.55-1.02); EST Glomerular Filtration Rate 38 mL/min (>60); Est Glom Filt Rate - Afr Amer 46 mL/min (>60); Estimated Creatinine Clearance 37.86 ml/min; Glucose 190 mg/dL (74-106); Potassium 3.5 mmol/L (3.5-5.1); Sodium Level 136 mmol/L (136-145)
--- NOTE | 2023-01-10 10:36 | PCM.DC.SUM ---
Providers Date of Admission: 01/04/23 Primary Care Physician: Dr. Mala Mcgrath MD Consultations 01/05/23 07:30 Consult: Nephrology Routine Consulting Provider: Claudia Rico Reason for Consult: RALPH on CKD with hyperkalemia EMERGENT Consult: No Notified: Yes Date Notified: 01/05/23 Time Notified: 07:31 Method of Notification: Text 01/06/23 07:33 Consult: Gastroenterology Routine Consulting Provider: [facility] Reason for Consult: increased ileostomy output EMERGENT Consult: No Notified: Yes Date Notified: 01/06/23 Time Notified: 07:33 Method of Notification: Text Reason For Visit: ACUTE RENAL FAILURE, DEHYDRATION FROM GASTROENTERI Diagnosis Discharge Diagnosis (1) High output ileostomy: Status: Acute Code(s): R19.8 - Other specified symptoms and signs involving the digestive system and abdomen; Z93.2 - Ileostomy status Plan: 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 Chronically takes loperamide PRN, PPI and Lomotil QID On octreotide gtt since 01/06. Will discontinue today (2) Acute renal failure: Status: Acute Code(s): N17.9 - Acute kidney failure, unspecified Plan: Resolved POA, then peaked at 4.92 Baseline around 1.75 2/2 to high-put ileostomy (3) COVID-19: Status: Acute Code(s): U07.1 - COVID-19 Plan: Symptoms and test + on 01/08. That will be day 0. Quarantine through 01/18. Has been on room air. CXR on the was unremarkable No treatment at this time. I recommended patient quarantine through the and then to wear a mask for 5 days afterwards. (4) Metabolic acidosis: Status: Acute Code(s): E87.20 - Acidosis, unspecified Plan: POA 2/2 RALPH resolved (5) Hyperkalemia, diminished renal excretion: Status: Acute Code(s): E87.5 - Hyperkalemia Plan: POA 2/2 RALPH Plan Chronic conditions: Type 2 diabetes mellitus; on ISS. Accuchecks ACHS. Dapagliflozin on hold. Also has insulin pump History of ulcerative colitis: S/p ileostomy with resultant short gut syndrome. Hypertension: On metoprolol. Hydrochlorothiazide held due to RALPH. CAD: On aspirin and Plavix as well as high intensity statin. Also on imdur Depression: On duloxetine History of psoriasis. Used to be on Humira but was taken off of it during COVID times due to concerns for immunosuppression. To follow-up with rheumatology on outpatient basis. History of chronic pain: On buprenorphine patch. Follow up with pain mgmt. I reviewed her OARRS and she received 4 buprenorphine patches on the the along with 56 pregabalin. DVT prophylaxis; SCDs Disposition: To home today. Medications at Discharge Home Medications aspirin 81 mg tablet,delayed release 81 mg PO DAILY Check with primary doctor 04/08/21 duloxetine 30 mg capsule,delayed release 90 mg PO DAILY Check with primary doctor 10/06/21 hyoscyamine sulfate 0.125 mg tablet 0.125 mg PO Q6H PRN dyspepsia #60 tabs 11/04/21 Wheel Chair 11/15/21 blood sugar diagnostic (True Metrix Glucose Test Strip) 11/15/21 blood-glucose meter,continuous (Dexcom G6 Annealing Torch Operator) 11/15/21 pen needle, diabetic 32 gauge x 5/32 (BD Ultra-Fine Key Pen Needle) 11/15/21 buprenorphine 10 mcg/hour weekly transdermal patch 1 patch transdermal Q7D pain 11/18/21 loperamide 2 mg capsule (Imodium A-D) 2 mg PO Q6H PRN loose stool #20 caps 11/18/21 nitroglycerin 0.4 mg sublingual tablet 0.4 mg sublingual Q5-15M PRN chest pain #25 tabs 11/20/21 ostomy supplies #1 ea 02/13/22 dicyclomine 10 mg capsule 20 mg PO DAILY Check with primary doctor 03/14/22 clopidogrel 75 mg tablet 75 mg PO DAILY Check with primary doctor #90 tabs 03/16/22 pantoprazole 40 mg tablet,delayed release See Rx Instructions .Route .COMPLEX #28 tabs 04/07/22 melatonin 3 mg tablet 5 mg PO QHS PRN PRN Insomnia 07/06/22 lamotrigine 100 mg tablet 100 mg PO DAILY 07/20/22 metoprolol tartrate 25 mg tablet 25 mg PO .COMPLEX bp #180 tabs 07/28/22 insulin pump cart,automated,BT (Omnipod 5 G6 Pods (Gen 5) subcutaneous cartridge) #45 ea 07/31/22 atorvastatin 80 mg tablet 80 mg PO QHS CHOLESTEROL LOWERING #90 tabs 08/04/22 blood-glucose transmitter (Dexcom G6 Transmitter device) #1 ea 08/07/22 dicyclomine 10 mg capsule 10 mg PO QHS 09/01/22 metoprolol tartrate 50 mg tablet 50 mg PO .COMPLEX Check with primary doctor 09/02/22 Handicap Placard #1 ea 09/16/22 dapagliflozin propanediol 10 mg tablet (Farxiga) 10 mg PO DAILY #90 tabs 09/16/22 triamcinolone acetonide 0.1 % topical cream 1 applic topical BID PRN rash #453.6 grams 09/16/22 cholecalciferol (vitamin D3) 50 mcg (2,000 unit) capsule 50 mcg PO DAILY 11/10/22 isosorbide dinitrate 30 mg tablet 30 mg PO BID heart #60 tabs 12/11/22 blood-glucose sensor (Dexcom G6 Sensor device) #9 ea 12/14/22 pregabalin 75 mg capsule 75 mg PO BID pain #60 caps 12/15/22 ursodiol 300 mg capsule 300 mg PO BID Check with primary doctor 12/17/22 insulin lispro 200 unit/mL (3 mL) subcutaneous pen (Humalog KwikPen U-200 Insulin) 130 unit subcut CONT diabetes 01/04/23 diphenoxylate-atropine 2.5 mg-0.025 mg tablet (Lomotil) 1 tab PO TID PRN diarrhea #90 tabs 01/10/23 Hospital Course Operations None Procedures None Summary of Care Provided Minutes Spent on Discharge: 35 Hospital Course: Patient presents with high output ileostomy complicated by acute kidney injury where her creatinine jumped up to 4.92 and hyperkalemia of 6.6. Patient did receive IV fluids and her creatinine is much improved, back down to her baseline and her potassium improved after treatments for that. Patient was started on octreotide and seen by gastroenterology. Output has greatly improved. Patient will also seen by nephrology but patient did not require any renal replacement therapy. While she was here, she started feeling sick and did request a COVID-19 test. That came back positive on the third. Patient said that the symptoms from the COVID began that day. Sedately 0 will be the third and patient will need to quarantine from the fourth to the eighth and then wear a mask for 5 days afterwards. Weight / BMI Weight Weight: 88.3 kg Body Mass Index (BMI) 30.4 ABG / Lab / Microbiology Data 01/10/23 07:50 01/10/23 07:50 Laboratory: Laboratory Results - last 24 hr 01/09/23 11:16: POC Glucose 228 H 01/09/23 16:15: POC Glucose 289 H 01/09/23 23:47: POC Glucose 219 H 01/10/23 05:42: POC Glucose 198 H 01/10/23 07:50: WBC 7.4, RBC 4.14 L, Hgb 11.2 L, Hct 36.1 L, MCV 87.2, MCH 27.1, MCHC 31.0 L, RDW Std Deviation 50.1 H, RDW Coeff of Jan 15.8 H, Plt Count 163, MPV 12.3 H, Immature Gran % (Auto) 2.600 H, Neut % (Auto) 66.1, Lymph % (Auto) 18.9 L, [place] % (Auto) 9.5, Eos % (Auto) 2.2, Baso % (Auto) 0.7, Absolute Neuts (auto) 4.9, Absolute Lymphs (auto) 1.39, Nucleated RBC % 0, Sodium 136, Potassium 3.5, Chloride 101, Carbon Dioxide 28.0, Anion Gap 7, BUN 17, Creatinine 1.46 H, Estim Creat Clear Calc 37.86, Est GFR (MDRD) Af Amer 46 L, Est GFR (MDRD) Non-Af 38 L, BUN/Creatinine Ratio 11.6, Glucose 190 H, Calcium 8.0 L Microbiology: Microbiology 01/08/23 22:10 Nasal Secretion SARS-CoV-2 Antigen (Rapid) - Final SARS-CoV-2 (COVID 19) 01/05/23 16:05 Blood Culture (Wb) - Right Wrist Blood Culture - Preliminary No growth in 48 hours. 01/05/23 15:55 Blood Culture (Wb) - Anticubital Right Blood Culture - Preliminary No growth in 48 hours. 01/06/23 00:05 Stool Stool Occult Blood (MAYTE) - Final Occult Blood Positive 01/04/23 20:32 Stool Stool Lactoferrin - Final 01/04/23 20:32 Stool Enteric Bacteriology - Final 01/04/23 20:32 Stool C. difficile DNA Amplification - Final D/C Instructions Discharge Diet: - ([place] diet. Advance as tolerated.) Meaningful Use Info Meaningful Use Diagnoses (Choose all that apply): None applicable Discharge Plan Admission Admit Date/Time: 01/04/23 23:00 Primary Reason for Your Visit: high-output ileostomy Attending Provider: Shiva Chandler Primary Care Provider: Mala Mcgrath Consulting Providers: Alireza Covarrubias; Claudia Rico; Audrey Vail Discharge Orders/Prescriptions Prescriptions: Continued duloxetine 30 mg capsule,delayed release(DR/EC) 90 mg PO DAILY nitroglycerin 0.4 mg tablet, sublingual 0.4 mg sublingual Q5-15M PRN (Reason: chest pain) Qty: 25 6RF Rx Instructions: do not exceed 3 doses per episode melatonin 3 mg tablet 5 mg PO QHS PRN PRN (Reason: Insomnia) lamotrigine 100 mg tablet 100 mg PO DAILY triamcinolone acetonide 0.1 % cream 1 applic topical BID PRN (Reason: rash) Qty: 453.6 1RF (DME) Handicap Placard See Rx Instructions .ROUTE .MEDSUPPLY Qty: 1 0RF Rx Instructions: As directed, length of time 3 years ursodiol 300 mg capsule 300 mg PO BID aspirin 81 mg Tablet,Delayed Release (Dr/Ec) 81 mg PO DAILY Hold Instructions: Resume on 06/10/22. (DME) True Metrix Glucose Test Strip Strip See Rx Instructions .Route Rx Instructions: 3 times per day No longer (DME) Dexcom G6 Anne[place] Torch Operator Misc See Rx Instructions .ROUTE .MEDSUPPLY Rx Instructions: As directed (DME) pen needle, diabetic [BD Ultra-Fine Key Pen Needle] 32 gauge x 32 needle See Rx Instructions .ROUTE .MEDSUPPLY Rx Instructions: takes 5 injection/day (DME) Wheel Chair See Rx Instructions Rx Instructions: As directed buprenorphine 10 mcg/hour Patch Weekly 1 patch TRANSDERMAL Q7D Rx Instructions: changes on Saturdays loperamide [Imodium A-D] 2 mg capsule 2 mg PO Q6H PRN (Reason: loose stool) Qty: 20 0RF dicyclomine 10 mg capsule 20 mg PO DAILY dicyclomine 10 mg Capsule 10 mg PO QHS metoprolol tartrate 50 mg tablet 50 mg PO .COMPLEX Rx Instructions: 50 mg orally twice a day with a 25 mg tablet twice a day to = 75 mg twice a day; Humalog KwikPen Insulin 200 unit/mL (3 mL) insulin pen 130 unit subcut CONT Rx Instructions: 2.05 units/hr from 12 AM to 6:30 AM 2.15 units/hr from 6:30 AM to 12 AM diphenoxylate-atropine [Lomotil] 2.5-0.025 mg tablet 1 tab PO TID PRN (Reason: diarrhea) Qty: 90 0RF hyoscyamine sulfate 0.125 mg tablet 0.125 mg PO Q6H PRN (Reason: dyspepsia) Qty: 60 2RF (DME) ostomy supplies See Rx Instructions .Route .MEDSUPPLY Qty: 1 0RF Rx Instructions: Pouches Barrier rings Adhesive remover Skin Prep Barrier powder clopidogrel 75 mg tablet 75 mg PO DAILY Qty: 90 3RF Hold Instructions: Resume on 06/10/22. Rx Instructions: TAKE 1 TABLET BY MOUTH EVERY DAY pantoprazole 40 mg tablet,delayed release (DR/EC) See Rx Instructions .ROUTE .COMPLEX Qty: 28 11RF Dose Instruction: TAKE 1 TABLET BY MOUTH DAILY FOR GERD Rx Instructions: TAKE 1 TABLET BY MOUTH DAILY FOR GERD metoprolol tartrate 25 mg tablet 25 mg PO .COMPLEX Qty: 180 3RF Rx Instructions: 25 mg orally take with a 50 mg tablet twice a day to = 75 mg twice a day; (DME) Omnipod 5 G6 Pods (Gen 5) Cartridge See Rx Instructions .Route Qty: 45 1RF Rx Instructions: 1 pod q 48 hours atorvastatin 80 mg tablet 80 mg PO QHS Qty: 90 3RF Patient Comments: cholesterol (DME) Dexcom G6 Transmitter Device See Rx Instructions .ROUTE .MEDSUPPLY Qty: 1 3RF Rx Instructions: 1 transmitter every 90 days Farxiga 10 mg tablet 10 mg PO DAILY Qty: 90 1RF cholecalciferol (vitamin D3) 50 mcg (2,000 unit) capsule 50 mcg PO DAILY isosorbide dinitrate 30 mg tablet 30 mg PO BID Qty: 60 11RF (DME) Dexcom G6 Sensor Device See Rx Instructions .ROUTE .MEDSUPPLY Qty: 9 1RF Rx Instructions: 1 sensor every 10 days pregabalin 75 mg capsule 75 mg PO BID Qty: 60 1RF Referrals / Follow Up: [facility] [Provider Group] - 02/10/23 2:00 pm [facility] [Provider Group] - 02/10/23 10:00 am [facility] [Provider Group] - 02/08/23 10:45 am Mala Mcgrath MD [Primary Care Provider] - Within 2 Weeks Disposition Disposition (needs filled in before D/C Order can be placed): Home, Self Care Charges/Coding Visit Charges Inpatient E&M: 50972 Disch Hosp >30min
[2023-01-10 10:50] VITALS: BP 141/67; PULSE 68; RESP 18; TEMP 36.9; O2SAT 96
== END 2023-01-10 12:05 | disposition home or self-care (01) | DRG 391 ==
LOC: ED 22:37 → ICU 23:03 → MS3 01-09 07:03 → ICU 01-12 08:32 → MS3 01-12 08:32
PROVIDERS: Family Medicine; Nurse Practitioner Adult Health; Student in an Organized Health Care Education/Training Program; Admitting Provider Family Medicine; Emergency Provider Emergency Medicine; PCP Internal Medicine
DX: K52.9 Noninfective gastroenteritis and colitis, unspecified (principal); N17.0 Acute kidney failure with tubular necrosis; U07.1 COVID-19; K91.2 Postsurgical malabsorption, not elsewhere classified; I13.0 Hypertensive heart and chronic kidney disease with heart failure and stage 1 through stage 4 chronic kidney disease, or unspecified chronic kidney disease; N18.4 Chronic kidney disease, stage 4 (severe); I50.32 Chronic diastolic (congestive) heart failure; N17.9 Acute kidney failure, unspecified; K51.90 Ulcerative colitis, unspecified, without complications; E87.20 Acidosis, unspecified; E11.22 Type 2 diabetes mellitus with diabetic chronic kidney disease; E11.42 Type 2 diabetes mellitus with diabetic polyneuropathy; Z79.4 Long term (current) use of insulin; E11.43 Type 2 diabetes mellitus with diabetic autonomic (poly)neuropathy; E11.65 Type 2 diabetes mellitus with hyperglycemia; Z93.2 Ileostomy status; F32.A Depression, unspecified; E86.0 Dehydration; E78.49 Other hyperlipidemia; E87.5 Hyperkalemia; I25.10 Atherosclerotic heart disease of native coronary artery without angina pectoris; M25.561 Pain in right knee; M25.562 Pain in left knee; E66.09 Other obesity due to excess calories; Z95.5 Presence of coronary angioplasty implant and graft; J44.89 Other specified chronic obstructive pulmonary disease; Z79.82 Long term (current) use of aspirin; Z87.891 Personal history of nicotine dependence; Z79.02 Long term (current) use of antithrombotics/antiplatelets; Z82.3 Family history of stroke; R07.9 Chest pain, unspecified; G89.29 Other chronic pain; Z90.89 Acquired absence of other organs
CPT/HCPCS: 36415; 71045; 76770; 80048; 80053; 81002; 82274; 82570; 82962; 83630; 83690; 83735; 84100; 84484; 84540; 85025; 87040; 87493; 87506; 87811; 93005; 93306; 94762; 97110; 97162; 97166; 97530; 97535; 99285; J7030; P9612; Q9957; A4216; C8929; J2405

== ENCOUNTER → 2023-01-21 | Outpatient (CLI) | payer MEDICARE, MEDICAID, SELFPAY ==
[2020-11-27 10:47] VITALS: BMI 30.9
[2023-01-21 14:49] LABS: Absolute Lymphocyte Count 2.36 X10^3/uL (0.83-4.51); Absolute Neutrophil Count 5.1 X10^3/uL (2.0-7.7); Basophil% 1.2 % (0-1); Eosinophil# 0.33 X10^3/uL; Eosinophils% 3.8 % (0-5); Hematocrit 40.1 % (37-47); Hemoglobin 12.4 g/dL (12.0-15.0); Lymphocyte # 2.36 X10^3/ul (0.83-4.51); Lymphocyte % 27.4 % (19-41); Mean Corp Hgb Conc 30.9 g/dL (32-36); Mean Corpuscular Volume 87.2 fL (81-99); Mean Platelet Vol. 12.7 fl (6.2-12.0); Monocyte# 0.64 X10^3/uL; Monocyte% 7.4 % (0-10); NRBC Flagged by Analyzer 0 % (0-5); Neutrophil # 5.05 X10^3/uL (2.7-7.7); Neutrophil % 58.8 % (47-70); Platelet Count 220 K/mm3 (150-450); RBC Distribution Width CV 15.9 % (11.6-14.6); White Blood Count 8.6 K/mm3 (4.4-11.0)
[2023-01-21 15:17] LABS: ALB/GLOB Ratio 0.8 RATIO (0.9-2.4); AST(SGOT) 16 U/L (15-37); Alanine Aminotransfer ALT/SGPT 19 U/L (13-56); Albumin, Serum 3.3 g/dL (3.2-5.0); Alkaline Phosphatase 162 U/L (45-117); Anion Gap 8 (5-15); BUN 36 mg/dL (7-18); BUN/Creat Ratio 20.3 RATIO (10-20); Calcium,Total 9.3 mg/dL (8.5-10.1); Chloride 109 mmol/L (98-107); Creatinine, Serum 1.77 mg/dL (0.55-1.02); EST Glomerular Filtration Rate 31 mL/min (>60); Est Glom Filt Rate - Afr Amer 37 mL/min (>60); Globulin 4.4 g/dL (2.2-4.2); Glucose 196 mg/dL (74-106); Potassium 4.6 mmol/L (3.5-5.1); Protein, Total 7.7 g/dL (6.4-8.2); Sodium Level 141 mmol/L (136-145)
== END | disposition home or self-care (01) ==
LOC: BIMLAB 13:57
PROVIDERS: PCP Internal Medicine; Referring Provider Internal Medicine; Visit Provider Internal Medicine
DX: N17.9 Acute kidney failure, unspecified (principal); N18.9 Chronic kidney disease, unspecified
CPT/HCPCS: 36415; 80053; 85025

== ENCOUNTER 2023-01-22 09:57 | Outpatient (CLI) | payer MEDICARE, MEDICAID, SELFPAY ==
[2020-11-27 10:47] VITALS: BMI 30.9
[2023-01-22 10:03] VITALS: BP 162/78; PULSE 74; RESP 16; TEMP 35.8; BMI 32.1
[2023-01-22] MEDS: 0.9% NaCl Peripheral Flush Adult/Peds IV (10:10)
[2023-01-22] MEDS: 0.9% Normal Saline (1000mL) 1,000 ML 999 ML IV ×2 (10:19→11:20)
[2023-01-22 12:43] VITALS: BP 136/69; PULSE 75; RESP 16
== END 2023-01-22 09:58 | disposition home or self-care (01) ==
LOC: MEDOUTP 09:57
PROVIDERS: PCP Internal Medicine; Referring Provider Internal Medicine Gastroenterology; Visit Provider Internal Medicine Gastroenterology
DX: R19.8 Other specified symptoms and signs involving the digestive system and abdomen (principal)
CPT/HCPCS: 96360; 96361; J7030; A4216

== ENCOUNTER → 2023-02-04 | Outpatient (CLI) | payer MEDICARE, MEDICAID, SELFPAY ==
[2020-11-27 10:47] VITALS: BMI 30.9
[2023-02-04 15:33] LABS: Hematocrit 44.2 % (37-47); Hemoglobin 13.4 g/dL (12.0-15.0); Mean Corp Hgb Conc 30.3 g/dL (32-36); Mean Corpuscular Hgb 26.8 pg (27.0-32.0); Mean Corpuscular Volume 88.4 fL (81-99); Mean Platelet Vol. 12.3 fl (6.2-12.0); Platelet Count 223 K/mm3 (150-450); RBC Distribution Width CV 17.4 % (11.6-14.6); RBC Distribution Width SD 55.4 fl (35.1-43.9); White Blood Count 8.1 K/mm3 (4.4-11.0)
[2023-02-04 16:10] LABS: Albumin, Serum 3.4 g/dL (3.2-5.0); BUN 26 mg/dL (7-18); BUN/Creat Ratio 14.9 RATIO (10-20); Calcium,Total 9.6 mg/dL (8.5-10.1); Chloride 106 mmol/L (98-107); Creatinine, Serum 1.74 mg/dL (0.55-1.02); EST Glomerular Filtration Rate 31 mL/min (>60); Est Glom Filt Rate - Afr Amer 38 mL/min (>60); Glucose 123 mg/dL (74-106); Phosphorus 4.6 mg/dL (2.5-4.9); Potassium 4.6 mmol/L (3.5-5.1); Sodium Level 141 mmol/L (136-145)
[2023-02-04 16:11] LABS: Vitamin D,25 Hydroxy 24.6 ng/mL
[2023-02-04 16:23] LABS: Protein, Urine (Random) 161.8 mg/dL (<11.9); Protein:Creat Ratio 674 mg/g CRE (0-200)
[2023-02-05 07:59] LABS: PTHIN 61.6 pg/mL (18.4-80.1)
== END | disposition home or self-care (01) ==
LOC: BIMLAB 11:48
PROVIDERS: PCP Internal Medicine; Visit Provider Internal Medicine Nephrology
DX: N18.32 Chronic kidney disease, stage 3b (principal)
CPT/HCPCS: 36415; 80069; 82306; 82570; 83970; 84156; 85027

== ENCOUNTER 2023-02-05 09:38 | Outpatient (CLI) | payer MEDICARE, MEDICAID, SELFPAY ==
[2020-11-27 10:47] VITALS: BMI 30.9
[2023-02-05 09:46] VITALS: BP 150/72; PULSE 90; RESP 18; TEMP 36.4; O2SAT 96; BMI 32.1
[2023-02-05] MEDS: 0.9% NaCl Peripheral Flush Adult/Peds IV (09:52)
[2023-02-05] MEDS: 0.9% Normal Saline (1000mL) 1,000 ML 999 ML IV ×2 (09:54→11:02)
[2023-02-05 12:24] VITALS: BP 156/57; PULSE 75; RESP 16; O2SAT 96
== END 2023-02-05 09:39 | disposition home or self-care (01) ==
LOC: MEDOUTP 09:38
PROVIDERS: PCP Internal Medicine; Referring Provider Internal Medicine Gastroenterology; Visit Provider Internal Medicine Gastroenterology
DX: R19.8 Other specified symptoms and signs involving the digestive system and abdomen (principal)
CPT/HCPCS: 96360; 96361; J7030; A4216

== ENCOUNTER → 2023-02-10 | Outpatient (CLI) | payer MEDICARE, MEDICAID, SELFPAY ==
[2020-11-27 10:47] VITALS: BMI 30.9
[2023-02-10 13:22] LABS: Cholesterol 197 mg/dL (200); High Density Lipoprotein 51 mg/dL; Triglycerides 518 mg/dL
== END | disposition home or self-care (01) ==
LOC: LAB 10:51
PROVIDERS: PCP Internal Medicine; Referring Provider Nurse Practitioner Family; Visit Provider Nurse Practitioner Family
DX: E11.9 Type 2 diabetes mellitus without complications (principal)
CPT/HCPCS: 36415; 80061

== ENCOUNTER → 2023-02-16 | Outpatient (CLI) | payer MEDICARE, MEDICAID, SELFPAY ==
[2020-11-27 10:47] VITALS: BMI 30.9
--- NOTE | 2023-02-16 12:43 | NM_ITS ---
CLINICAL: 62-year-old diabetic female with history of gastroparesis and abdominal pain. SEMI-SOLID PHASE 99m Tc SULFUR COLLOID GASTRIC EMPTYING STUDY COMPARISON: Previous sulfur colloid semisolid phase gastric emptying study report 07/13/2016 FINDINGS: The patient was administered 1.0 mCi of 99m Tc sulfur colloid mixed with oatmeal and consumed per os. Image acquisitions in the anterior-posterior projections were obtained for 60 minutes. There is prompt visualization of the stomach. There is no gastroesophageal reflux identified. The T ? raw data emptying was calculated to be 38.24 minutes, (Normal: 12-56 minutes) compared to a linear fit of 230.46 minutes. NM/Gastric Emptying Study IMPRESSION: 1. NORMAL 99m Tc sulfur colloid semi-solid phase (oatmeal) gastric emptying imaging examination. A. There is normal and preserved semi-solid phase gastric emptying compared to normal controls. (Jossue et al, J Nucl Med Tech 38: 186, 2010). B. Overall compared to the previous semisolid phase gastric emptying study dated 07/13/2016, there is current normal quantitative gastric emptying is defined. Electronically Signed: Houston Miller DO at 23:13 EST ,
== END | disposition home or self-care (01) ==
LOC: NM 12:43
PROVIDERS: PCP Internal Medicine; Referring Provider Internal Medicine Gastroenterology; Visit Provider Internal Medicine Gastroenterology
DX: K31.84 Gastroparesis (principal)
CPT/HCPCS: 78264; A9541

== ENCOUNTER 2023-02-19 09:44 | Outpatient (CLI) | payer MEDICARE, MEDICAID, SELFPAY ==
[2023-02-18 12:34] VITALS: BMI 30.9
[2023-02-19 10:06] VITALS: BP 153/57; PULSE 76; RESP 16; TEMP 36.1; O2SAT 95; BMI 32.1
[2023-02-19] MEDS: 0.9% NaCl Peripheral Flush Adult/Peds IV (10:14)
[2023-02-19] MEDS: 0.9% Normal Saline (1000mL) 1,000 ML 999 ML IV ×2 (10:14→11:28)
[2023-02-19 12:48] VITALS: BP 159/64; PULSE 73; RESP 16; TEMP 36.7; O2SAT 98
== END 2023-02-19 09:45 | disposition home or self-care (01) ==
LOC: MEDOUTP 09:44
PROVIDERS: PCP Internal Medicine; Referring Provider Internal Medicine Gastroenterology; Visit Provider Internal Medicine Gastroenterology
DX: R19.8 Other specified symptoms and signs involving the digestive system and abdomen (principal)
CPT/HCPCS: 96360; 96361; J7030; A4216

== ENCOUNTER 2023-03-02 13:44 | Emergency (ER) | payer MEDICARE, MEDICAID, SELFPAY ==
[2023-02-18 12:34] VITALS: BMI 30.9
[2023-03-02 13:50] VITALS: BP 140/70; PULSE 81; RESP 24; TEMP 36.4; O2SAT 96
--- NOTE | 2023-03-02 14:02 | EKG12_ITS ---
Test Reason : CHEST PAIN Blood Pressure : / mmHG Vent. Rate : 076 BPM Atrial Rate : 076 BPM P-R Int : 158 ms QRS Dur : 090 ms QT Int : 380 ms P-R-T Axes : 006 -25 107 degrees QTc Int : 427 ms Normal sinus rhythm Left ventricular hypertrophy with repolarization abnormality ( R in aVL , [place] product ) Abnormal ECG Confirmed by CHLOÉ DOMINGUEZ, AL ([id number]), supervising editor trailer DEREK CAVAZOS ([id number]) on 03/09/2023 8:11:48 AM Referred By: Confirmed By:AL LUEVANO MD
--- NOTE | 2023-03-02 14:16 | RAD_ITS ---
STUDY: X-RAY CHEST REASON FOR EXAM: Female, 62 years old. Chest pain. TECHNIQUE: Single frontal view of the chest. COMPARISON: January 04, 2023 FINDINGS: Patchy opacity at the right base medially representing atelectasis or early/developing pneumonia. Follow-up chest imaging to resolution recommended. There is no demonstrated pleural abnormality. Stable cardiomegaly with sternotomy wires. Normal mediastinum and marie. Normal visualized pulmonary arteries. Normal visualized aortic arch and descending thoracic aorta. Normal visualized thoracic spine. Normal visualized ribs, clavicles, and shoulders. No abnormality of the visualized soft tissue structures of the upper abdomen. RAD/Chest 1 View (Portable) IMPRESSION: Cardiomegaly with patchy opacity at the right base medially compatible with atelectasis or early/developing pneumonia. Follow-up chest imaging to resolution recommended. Electronically Signed: Adama Nevarez MD at 14:25 EST ,
--- NOTE | 2023-03-02 14:18 | EX.ED.VIS.UR ---
HPI HPI - URI History of Present Illness Chief Complaint: Chest Pain Detail of Chief Complaint: Cough with chest pain when coughing only. Noncardiac chest pain. Informant: patient Onset/Context/Timing Onset: Days Context: Gradual Onset Timing: Intermittent Current Severity: Mild Maximum Severity: Mild Associated Symptoms Associated Symptoms: Positive for Nasal Congestion and Productive Cough (Green sputum) Narrative Narrative: 62-year-old female history of CAD with 11 stents, on Plavix, COPD no home O2, quadruple bypass, CKD and diabetes. 15 days ago she had URI symptoms. Was treated urgent care with antibiotics for positive strep throat. Reportedly has been COVID-negative at home. Said she was feeling better but then 11 days ago had symptoms consistent with a cough and then flulike symptoms 6 days ago with greenish sputum. No fever. No vomiting but she has had some loose stools. No hemoptysis. Prior similar symptoms: Yes Recent Illness/Hospitalization: No ROS ROS ED ROS Narrative Cough. Review of Systems ROS Unobtainable: Denies due to encephalopathy Constitutional Constitutional ED: Denies chills or fever(s) Eyes Eyes: Denies blurry vision ENT ENT ED: Denies ear pain Cardiovascular Cardiovascular: Reports other Respiratory/Chest Respiratory/Chest: Reports cough, dyspnea and sputum Gastrointestinal Gastrointestinal: Reports diarrhea; Denies abdominal pain, constipation, nausea or vomiting Genitourinary Genitourinary ED: Denies dysuria or hematuria Musculoskeletal Musculoskeletal: Denies arthralgias or back pain Integumentary Denies abscess Neurologic Neurologic: Denies headache(s) Psychiatric Psychiatric: Denies anxiety, depression or suicidal ideation Endocrine Endocrinology: Denies cold intolerance or heat intolerance Hematologic/Lymphatic Hematologic/Lymphatic: Denies easy bleeding, easy bruising or lymphadenopathy Allergic/Immunologic Allergic/Immunologic ED: Denies mouth swelling, tongue swelling or urticaria PFSH [facility] Medical History Acute kidney injury Anxiety Anxiety and depression Arthritis Avascular necrosis of bone of left hip BiPAP (biphasic positive airway pressure) dependence BMI 31.0-31.9,adult CAD (coronary artery disease) Cardiology follow-up encounter Cellulitis, abdominal wall Chronic back pain Chronic diastolic (congestive) heart failure Chronic narcotic use Chronic respiratory failure Chronic respiratory failure with hypoxia, on home O2 therapy CKD (chronic kidney disease), stage IV COPD (chronic obstructive pulmonary disease) Depression with anxiety Diabetic gastroparesis DM2 (diabetes mellitus, type 2) Elevated anti-tissue transglutaminase (tTG) IgA level Fatty liver FCHL (familial combined hyperlipidemia) Former smoker Gastric reflux Gastroparesis High output ileostomy History of CAD (coronary artery disease) History of COVID-19 Hx of diabetic gastroparesis Hyperlipidemia Hypertension Ileostomy present Insulin dependent diabetes mellitus Left shoulder pain Liver mass Loss of hearing Malaise and fatigue Menieres disease MGUS (monoclonal gammopathy of unknown significance) Migraine headache Myoclonic jerking Non-alcoholic fatty liver disease Nonalcoholic steatohepatitis Obesity Obstructive sleep apnea Psoriasis Secondary pulmonary arterial hypertension Short bowel syndrome Smoking greater than 20 pack years Type 2 diabetes mellitus with diabetic polyneuropathy Ulcerative colitis Vitamin B12 deficiency Vitamin D deficiency Walker as ambulation aid Wears glasses Home Medications aspirin 81 mg tablet,delayed release 81 mg PO DAILY Check with primary doctor 04/08/21 [History Last Taken 05/27/22] duloxetine 30 mg capsule,delayed release 90 mg PO DAILY Check with primary doctor 10/06/21 [History Last Taken 05/27/22] hyoscyamine sulfate 0.125 mg tablet 0.125 mg PO Q6H PRN dyspepsia #60 tabs 11/04/21 [Rx Last Taken 05/25/22] Wheel Chair 11/15/21 [History Last Taken Unknown] blood sugar diagnostic (True Metrix Glucose Test Strip) 11/15/21 [History Last Taken Unknown] blood-glucose meter,continuous (Dexcom G6 Scuba Dive Training Instructor) 11/15/21 [History Last Taken Unknown] pen needle, diabetic 32 gauge x 5/32 (BD Ultra-Fine Key Pen Needle) 11/15/21 [History Last Taken Unknown] loperamide 2 mg capsule (Imodium A-D) 2 mg PO Q6H PRN loose stool #20 caps 11/18/21 [Rx Last Taken 05/14/22] nitroglycerin 0.4 mg sublingual tablet 0.4 mg sublingual Q5-15M PRN chest pain #25 tabs 11/20/21 [Rx Last Taken Unknown] ostomy supplies #1 ea 02/13/22 [Rx Last Taken Unknown] dicyclomine 10 mg capsule 20 mg PO DAILY Check with primary doctor 03/14/22 [History Last Taken 05/27/22] pantoprazole 40 mg tablet,delayed release See Rx Instructions .Route .COMPLEX #28 tabs 04/07/22 [Rx Last Taken 05/27/22] lamotrigine 100 mg tablet 100 mg PO DAILY 07/20/22 [History Last Taken Unknown] metoprolol tartrate 25 mg tablet 25 mg PO .COMPLEX bp #180 tabs 07/28/22 [Rx Last Taken Unknown] atorvastatin 80 mg tablet 80 mg PO QHS CHOLESTEROL LOWERING #90 tabs 08/04/22 [Rx Last Taken Unknown] blood-glucose transmitter (Dexcom G6 Transmitter device) #1 ea 08/07/22 [Rx Last Taken Unknown] metoprolol tartrate 50 mg tablet 50 mg PO .COMPLEX Check with primary doctor 09/02/22 [History Last Taken Unknown] Handicap Placard #1 ea 09/16/22 [Rx Last Taken Unknown] dapagliflozin propanediol 10 mg tablet (Farxiga) 10 mg PO DAILY #90 tabs 09/16/22 [Rx Last Taken Unknown] triamcinolone acetonide 0.1 % topical cream 1 applic topical BID PRN rash #453.6 grams 09/16/22 [Rx Last Taken Unknown] isosorbide dinitrate 30 mg tablet 30 mg PO BID heart #60 tabs 12/11/22 [Rx Last Taken Unknown] blood-glucose sensor (Dexcom G6 Sensor device) #9 ea 12/14/22 [Rx Last Taken Unknown] insulin lispro 200 unit/mL (3 mL) subcutaneous pen (Humalog KwikPen U-200 Insulin) 130 unit subcut CONT diabetes 01/04/23 [History Last Taken Unknown] diphenoxylate-atropine 2.5 mg-0.025 mg tablet (Lomotil) 1 tab PO TID PRN diarrhea #90 tabs 01/10/23 [Rx Last Taken Unknown] insulin pump cart,automated,BT (Omnipod 5 G6 Pods (Gen 5) subcutaneous cartridge) #45 ea 01/13/23 [Rx Last Taken Unknown] Juanita Cohesive Seal 2 diameter #15 ea 01/18/23 [Rx Last Taken Unknown] Esenta Sting Free Adhesive Remover Wipe - #15 ea 01/18/23 [Rx Last Taken Unknown] Esenta Sting Free Skin Barrier [place], 50 mL - #15 ea 01/18/23 [Rx Last Taken Unknown] Esteem + Convex One-Piece Drainable Pre-Cut Pouch w/ visiClose, Durahesive, 12 panel [place], 1 03/15 #15 ea 01/18/23 [Rx Last Taken Unknown] clopidogrel 75 mg tablet 75 mg PO DAILY Check with primary doctor #90 tabs 02/04/23 [Rx Last Taken Unknown] pregabalin 75 mg capsule 75 mg PO BID pain #60 caps 02/04/23 [Rx Last Taken Unknown] ursodiol 300 mg capsule 300 mg PO BID #180 caps 02/04/23 [Rx Last Taken Unknown] blood sugar diagnostic (True Metrix Glucose Test Strip) #100 ea 02/08/23 [Rx Last Taken Unknown] buprenorphine 15 mcg/hour weekly transdermal patch 1 patch transdermal Q7D 02/10/23 [History Last Taken Unknown] melatonin 5 mg tablet 5 mg PO HS PRN 02/10/23 [History Last Taken Unknown] cyclobenzaprine 10 mg tablet 10 mg PO TID PRN muscle spasm #30 tabs 02/24/23 [Rx Last Taken Unknown] methylprednisolone 4 mg tablets in a dose pack (Medrol (Kenny)) See Rx Instructions PO PER PKG DIR #21 tabs 02/24/23 [Rx Last Taken Unknown] azithromycin 250 mg tablet (Zithromax) 250 mg PO DAILY 4 days #4 tabs 03/02/23 [Rx Last Taken Unknown] Allergy/AdvReac Type Severity Reaction Status Date / Time ciprofloxacin Allergy Intermediate Swelling Verified 03/02/23 13:45 cinnamon [Cinnamon] Allergy Anaphylaxis Verified 03/02/23 13:45 Influenza Virus Vaccines Allergy Shortness Verified 03/02/23 13:45 of breath liraglutide [From Victoza] Allergy Anaphylaxis Verified 03/02/23 13:45 metformin [From Glucophage] Allergy NEEDS Verified 03/02/23 13:45 FOLLOW-UP metronidazole [From Flagyl] Allergy Hives Verified 03/02/23 13:45 Metronidazole HCl Allergy Hives Verified 03/02/23 13:45 [From Flagyl] Penicillins Allergy Hives Verified 03/02/23 13:45 Sulfa (Sulfonamide Allergy Hives Verified 03/02/23 13:45 Antibiotics) aripiprazole [From Abilify] AdvReac hallucinati Verified 03/02/23 13:45 ons codeine AdvReac Stops Verified 03/02/23 13:45 Ileostomy metformin HCl AdvReac Nausea Verified 03/02/23 13:45 [From Glucophage] ranolazine AdvReac Nausea/Vom/ Verified 03/02/23 13:45 Diarrhea [id number] Reductase AdvReac Nausea/joints Verified 03/02/23 13:45 Inhibitor ache [Qglbnok-[id number]-Bvv Reductase Inhibitor] Family History Mother CVA (cerebral vascular accident) Diabetes Brother Heart disease of CAD at 65 Myocardial infarction Pancreatitis Father Cancer lymphomia Lymphoma Grandmother Myocardial infarction of VA in her 70s Sister COPD (chronic obstructive pulmonary disease) Surgical History H/O colectomy H/O coronary artery bypass surgery (05/18/12) H/O sinus surgery H/O total hysterectomy history closed fissure History of History of cardiac catheterization History of cholecystectomy History of coronary artery stent placement (01/12/18) ileostomy Ileostomy status left thumb surgery Status post total hip replacement, left Social History household members: none Smoking Status: Former smoker quit date: 03/08/12 how long ago did patient quit smoking: quit in 2012; 0.5-1ppd x 30yrs alcohol intake: never substance use type: does not use diet: diabetic caffeine: No eating out: 1-3 times/week what type of physical activity do you participate in: none seatbelt use: always do you feel safe at home: Yes EXAM Physical Exam Narrative Exam Narrative: 82-year-old female vital signs stable afebrile. Pulse ox 96% on room air no signs of hypoxia. H EENT exam unremarkable. Neck nontender. Lungs coarse breath sounds. Few scattered wheezes. No rales or rhonchi. Heart regular rhythm no murmur. Chest wall nontender. Abdomen soft nontender. Moving all 4 extremities. Nontender, no edema or cords. She is awake and alert. Answering questions and following commands. Const Vital Signs: 03/02/23 13:50 03/02/23 14:30 03/02/23 14:31 Temperature 97.6 F L Temperature Source Temporal Pulse Rate 81 Respiratory Rate 24 H Respiratory Effort Short of Breath Labored Respiratory Pattern Blood Pressure 140/70 H Blood Pressure Mean 93 Pulse Ox 96 Oxygen Delivery Method Room Air Room Air 03/02/23 14:30 03/02/23 14:45 Temperature Temperature Source Pulse Rate 68 65 Respiratory Rate 24 H 18 Respiratory Effort Respiratory Pattern Tachypnea Blood Pressure 114/68 Blood Pressure Mean 83 Pulse Ox 93 Oxygen Delivery Method Positive well nourished and well developed; Negative for cachectic or contractures General Appearance ED: well developed and NAD; Negative for cachectic, contractures, cyanotic, diaphoretic or pallor Nutritional Appearance: Negative for cachectic HEENT Reports moist mucous membranes; Denies dry mucous membranes normocephalic and atraumatic; Negative for scalp tenderness Face and Sinus: Negative for sinus tenderness Mouth ED: No dry mucous membranes Mouth: No dry mucous membranes Teeth and Gingiva: Negative for caries Throat: posterior oropharynx normal; Negative for tonsils abnormal or posterior oropharynx abnormal Eyes PERRL and EOMs intact bilaterally General Eye ED: Negative for pale conjunctiva or scleral icterus Neck no lymphadenopathy, supple, no meningeal signs and no JVD General: Negative for anterior neck swelling or lymphadenopathy Resp normal respiratory effort and No clear to auscultation bilaterally Auscultation: wheezes Cardio Negative for S1 normal heart sound, S2 normal heart sound or no murmurs Rate: regular rate Rhythm: regular rhythm GI non-tender, non-distended and no masses Inspection: Negative for abdominal distention Auscultation: normoactive bowel sounds Palpation: soft; Negative for tender or guarding Back/Spine no CVA tenderness and normal ROM General Back: Negative for CVA tenderness Cervical Spine: Negative for cervical spine tenderness Thoracic Spine / Upper Back: Negative for thoracic spinal tenderness Lumbar Spine / Lower Back: Negative for lumbar spinal tenderness Sacrum: Negative for tenderness Extremity normal to inspection and full ROM General Extremety ED: Negative for cyanosis, tenderness or other findings General Extremity: Negative for cyanosis or other findings Neuro oriented x3 and CN's II-XII intact bilaterally Sensorium / Orientation: alert, oriented to person and oriented to place; Negative for oriented to time, orientation impaired or lethargic Motor Exam: strength 5/5 throughout; Negative for general weakness or strength abnormal Psych mental status grossly normal Appearance: Negative for other Attitude: No agitated Mood & Affect: Negative for depressed, anxious or tearful Skin General Skin Exam: Negative for jaundice or pallor Lesions: no lesions Trauma: Negative for laceration MDM MDM MDM Narrative Medical decision making narrative: Six 2-year-old female with COPD with urinary symptoms. Rule out pneumonia versus viral syndrome. Chest x-ray and labs. Treated with p.o. prednisone and a DuoNeb aerosol. Repeat exam patient doing well at 3:52 PM. Wants to be discharged home. She will be given a liter normal saline prior to discharge due to mild dehydration. First dose of Zithromax Z-KENNY here and then to 50 a day for 4 more days starting tomorrow. Prescription be sent to her pharmacy. Follow-up with her primary care physician later this week or early next week. Return if worse. History & Record Review Discussion w/independent historian: Patient Additional record(s) reviewed:: Prior inpatient record, Prior outpatient record, Prior ED visit, Prior labs and No prior records Lab Data Attestation: I reviewed the patient's lab results. Lab results narrative: CBC shows elevated white count 18. H&H 13.9 and 46. Platelets 279. Electrolytes show a gap of 4. BUN and creatinine of 51 and 2.12. Glucose 91. Acute on chronic renal insufficiency. Chest x-ray right lower lobe pneumonia. COVID and flu negative. Labs: Laboratory Results - last 24 hr 03/02/23 14:15 WBC 18.0 H RBC 5.27 Hgb 13.9 Hct 46.0 MCV 87.3 MCH 26.4 L MCHC 30.2 L RDW Std Deviation 50.7 H RDW Coeff of Jan 15.9 H Plt Count 279 MPV 11.7 Immature Gran % (Auto) 1.300 H Neut % (Auto) 65.4 Lymph % (Auto) 24.1 [place] % (Auto) 6.7 Eos % (Auto) 1.7 Baso % (Auto) 0.8 Absolute Neuts (auto) 11.7 H Absolute Lymphs (auto) 4.33 Nucleated RBC % 0 Sodium 139 Potassium 4.4 Chloride 110 H Carbon Dioxide 25.0 Anion Gap 4 L BUN 51 H Creatinine 2.12 H Est GFR (MDRD) Af Amer 30 L Est GFR (MDRD) Non-Af 25 L BUN/Creatinine Ratio 24.1 H Glucose 91 Calcium 9.5 Radiography Chest X-Ray - ED: 1 View, Normal, Heart, Mediastinum, Bony Structures, No Acute Disease, Chronic Changes and Right Infiltrate Diagnostic Testing: Clinical Impression(s) from Imaging Studies Chest X-Ray 03/02/23 14:16 IMPRESSION: Cardiomegaly with patchy opacity at the right base medially compatible with atelectasis or early/developing pneumonia. Follow-up chest imaging to resolution recommended. Electronically Signed: Adama Nevarez MD at 14:25 EST , Chest x-ray, portable, single view, and to myself and the radiologist shows a right lower lobe infiltrate consistent with pneumonia. Rhythm Strip Rhythm Strip: Sinus Rhythm Rate: 76 Ectopy: None EKG Initial EKG: Attestation: I personally reviewed and interpreted this EKG as follows: Interpretation: Sinus Rhythm and No Acute Injury Pattern Comments: Normal sinus rhythm rate of 76 no acute signs of VA or ischemia. Discharge Plan Triage Chief Complaint: Chest Pain ED Provider: Sid Carter Dx/Rx/DC Orders Clinical Impression: Acute dehydration, History of COPD, Diarrhea, Leukocytosis, Acute on chronic renal insufficiency, Right lower lobe pneumonia, History of diabetes mellitus Instructions: ED Dehydration (Adult), ED Pneumonia (Adult) Prescriptions: New azithromycin [Zithromax] 250 mg tablet 250 mg PO DAILY 4 Days Qty: 4 0RF Rx Instructions: start on day 2 of therapy No Action duloxetine 30 mg capsule,delayed release(DR/EC) 90 mg PO DAILY nitroglycerin 0.4 mg tablet, sublingual 0.4 mg sublingual Q5-15M PRN (Reason: chest pain) Qty: 25 6RF Rx Instructions: do not exceed 3 doses per episode buprenorphine 15 mcg/hour patch weekly 1 patch transdermal Q7D melatonin 5 mg tablet 5 mg PO HS PRN lamotrigine 100 mg tablet 100 mg PO DAILY triamcinolone acetonide 0.1 % cream 1 applic topical BID PRN (Reason: rash) Qty: 453.6 1RF (DME) Handicap Placard See Rx Instructions .ROUTE .MEDSUPPLY Qty: 1 0RF Rx Instructions: As directed, length of time 3 years (DME) True Metrix Glucose Test Strip Strip See Rx Instructions .Route Qty: 100 5RF Rx Instructions: TID cyclobenzaprine 10 mg tablet 10 mg PO TID PRN (Reason: muscle spasm) Qty: 30 0RF methylprednisolone [Medrol (Kenny)] 4 mg tablets,dose pack See Rx Instructions PO PER PKG DIR Qty: 21 0RF Rx Instructions: take as directed aspirin 81 mg Tablet,Delayed Release (Dr/Ec) 81 mg PO DAILY Hold Instructions: Resume on 06/10/22. (DME) True Metrix Glucose Test Strip Strip See Rx Instructions .Route Rx Instructions: 3 times per day No longer (DME) Dexcom G6 Scuba Dive Training Instructor Misc See Rx Instructions .ROUTE .MEDSUPPLY Rx Instructions: As directed ([facility] [place] [place]) pen needle, diabetic [BD Ultra-Fine Key Pen Needle] 32 gauge x needle See Rx Instructions .ROUTE .MEDSUPPLY Rx Instructions: takes 5 injection/day ([facility] [place] [place]) Wheel Chair See Rx Instructions Rx Instructions: As directed loperamide [Imodium A-D] 2 mg capsule 2 mg PO Q6H PRN (Reason: loose stool) Qty: 20 0RF dicyclomine 10 mg capsule 20 mg PO DAILY metoprolol tartrate 50 mg tablet 50 mg PO .COMPLEX Rx Instructions: 50 mg orally twice a day with a 25 mg tablet twice a day to = 75 mg twice a day; Humalog KwikPen Insulin 200 unit/mL (3 mL) insulin pen 130 unit subcut CONT Rx Instructions: 2.05 units/hr from 12 AM to 6:30 AM 2.15 units/hr from 6:30 AM to 12 AM diphenoxylate-atropine [Lomotil] 2.5-0.025 mg tablet 1 tab PO TID PRN (Reason: diarrhea) Qty: 90 0RF hyoscyamine sulfate 0.125 mg tablet 0.125 mg PO Q6H PRN (Reason: dyspepsia) Qty: 60 2RF (DME) ostomy supplies See Rx Instructions .Route .MEDSUPPLY Qty: 1 0RF Rx Instructions: Pouches Barrier rings Adhesive remover Skin Prep Barrier powder pantoprazole 40 mg tablet,delayed release (DR/EC) See Rx Instructions .ROUTE .COMPLEX Qty: 28 11RF Dose Instruction: TAKE 1 TABLET BY MOUTH DAILY FOR GERD Rx Instructions: TAKE 1 TABLET BY MOUTH DAILY FOR GERD metoprolol tartrate 25 mg tablet 25 mg PO .COMPLEX Qty: 180 3RF Rx Instructions: 25 mg orally take with a 50 mg tablet twice a day to = 75 mg twice a day; atorvastatin 80 mg tablet 80 mg PO QHS Qty: 90 3RF Patient Comments: cholesterol (DME) Dexcom G6 Transmitter Device See Rx Instructions .ROUTE .MEDSUPPLY Qty: 1 3RF Rx Instructions: 1 transmitter every 90 days Farxiga 10 mg tablet 10 mg PO DAILY Qty: 90 1RF isosorbide dinitrate 30 mg tablet 30 mg PO BID Qty: 60 11RF (DME) Dexcom G6 Sensor Device See Rx Instructions .ROUTE .MEDSUPPLY Qty: 9 1RF Rx Instructions: 1 sensor every 10 days (DME) Omnipod 5 G6 Pods (Gen 5) Cartridge See Rx Instructions .Route Qty: 45 1RF Rx Instructions: 1 pod q 48 hours (DME) Juanita Cohesive Seal 2 diameter See Rx Instructions .Route .MEDSUPPLY Qty: 15 7RF Rx Instructions: As directed ([facility] [place] [place]) Esenta Sting Free Adhesive Remover Wipe - See Rx Instructions .Route .MEDSUPPLY Qty: 15 7RF Rx Instructions: As directed ([facility] [place] [place]) Esenta Sting Free Skin Barrier [place], 50 mL - See Rx Instructions .Route .MEDSUPPLY Qty: 15 7RF Rx Instructions: As directed ([facility] [place] [place]) Esteem + Convex One-Piece Drainable Pre-Cut Pouch w/ visiClose, Durahesive, 12 panel [place], 1 1/8 See Rx Instructions .Route .MEDSUPPLY Qty: 15 7RF Rx Instructions: As directed clopidogrel 75 mg tablet 75 mg PO DAILY Qty: 90 3RF Hold Instructions: Resume on 06/10/22. Rx Instructions: TAKE 1 TABLET BY MOUTH EVERY DAY pregabalin 75 mg capsule 75 mg PO BID Qty: 60 1RF ursodiol 300 mg capsule 300 mg PO BID Qty: 180 3RF Primary Care Provider: Mala Mcgrath Referrals: Mala Mcgrath MD [Primary Care Provider] - 3-5 Days Activity Restrictions/Additional Instructions: Plenty of fluids and rest. Take your antibiotic once a day starting tomorrow as a Zithromax. Follow-up with your primary care physician later this week or early next week. Return if feeling worse. Disposition Disposition: Home, Self Care
[2023-03-02] MEDS: Ipratropium/Albuterol Sulfate 3 ML AMPUL.NEB INHALATION (14:26)
[2023-03-02] MEDS: predniSONE 20 MG Tablet 40 MG PO (14:26)
[2023-03-02 14:27] LABS: Absolute Lymphocyte Count 4.33 X10^3/uL (0.83-4.51); Absolute Neutrophil Count 11.7 X10^3/uL (2.0-7.7); Basophil# 0.15 X10^3/uL; Basophil% 0.8 % (0-1); Eosinophil# 0.31 X10^3/uL; Eosinophils% 1.7 % (0-5); Hemoglobin 13.9 g/dL (12.0-15.0); Lymphocyte # 4.33 X10^3/ul (0.83-4.51); Lymphocyte % 24.1 % (19-41); Mean Corp Hgb Conc 30.2 g/dL (32-36); Mean Corpuscular Hgb 26.4 pg (27.0-32.0); Mean Corpuscular Volume 87.3 fL (81-99); Mean Platelet Vol. 11.7 fl (6.2-12.0); Monocyte# 1.21 X10^3/uL; Monocyte% 6.7 % (0-10); NRBC Flagged by Analyzer 0 % (0-5); Neutrophil # 11.74 X10^3/uL (2.7-7.7); Neutrophil % 65.4 % (47-70); Platelet Count 279 K/mm3 (150-450); RBC Distribution Width CV 15.9 % (11.6-14.6); RBC Distribution Width SD 50.7 fl (35.1-43.9); Red Blood Count 5.27 M/mm3 (4.2-5.4)
[2023-03-02 14:30] VITALS: PULSE 68; RESP 24
[2023-03-02 14:37] LABS: Anion Gap 4 (5-15); BUN 51 mg/dL (7-18); BUN/Creat Ratio 24.1 RATIO (10-20); Calcium,Total 9.5 mg/dL (8.5-10.1); Chloride 110 mmol/L (98-107); Creatinine, Serum 2.12 mg/dL (0.55-1.02); EST Glomerular Filtration Rate 25 mL/min (>60); Est Glom Filt Rate - Afr Amer 30 mL/min (>60); Glucose 91 mg/dL (74-106); Potassium 4.4 mmol/L (3.5-5.1); Sodium Level 139 mmol/L (136-145)
[2023-03-02 14:45] VITALS: BP 114/68; PULSE 65; RESP 18; O2SAT 93
[2023-03-02 15:00] VITALS: PULSE 69
[2023-03-02 16:00] VITALS: PULSE 68
[2023-03-02] MEDS: Azithromycin 250 MG Tablet 500 MG PO (16:02)
[2023-03-02] MEDS: 0.9% Normal Saline (1000mL) 1,000 ML 999 ML IV (16:02)
[2023-03-02 16:08] VITALS: BP 138/68; PULSE 64; RESP 15; O2SAT 97
--- OUTSIDE RECORDS SUMMARY | 2023-03-03 20:24 | XMS RPT_ITS | CCD ---
Author Name Unknown Address [address] [place] [address] Organization [facility] Care Team Providers Care Vice President And Portfolio Manager Name Role Phone GERBER, DEAN C Unavailable Unavailable GERBER, DEAN C Unavailable Unavailable Corkwell, Clarita Unavailable Unavailable Corkwell, Clarita Unavailable Unavailable PCP, Pt states no Unavailable Unavailable Oleghe, Efewongbe Meme Unavailable Unav ailable Glessing, Huma Juan Unavailable Unavaila ble Glessing, Huma Juan Unavailable Unavaila ble Oleghe, Efewongbe Meme Unavailable Unav ailable Glessing, Huma Juan Unavailable Unavaila ble Turowski, Alireza Unavailable Unavailable PROVIDER, UNKNOWN Unavailable Unavailable Baltazar, Dmitry Unavailable Unavailable Thomae, Brennan Unavailable Unavailable Oleghe, Efewongbe B Unavailable Unavailable None, No PCP Unavailable Unavailable None, No PCP Unavailable Unavailable Oleghe, Efewongbe B Unavailable [phone] Unavailable Unavailable OLEGHE, EFEWONGBE B Primary Care Unavailable EDWIGE JOY Attending Unavailable FRIEND, JACQUELINE Zurita Referring Unavailable Allergies Allergy Classification Reported Allergen(s) Allergy Type Date of Onset Reaction(s) Facility Anticholinergics (1 source) Dicyclomine; Translations: [dicyclomine] [facility] [address] Work Phone: liraglutide (1 source) liraglutide; Translations: [Victoza SOPN] [facility] Work Phone: metFORMIN (1 source) metFORMIN; Translations: [metformin] Drug [facility] [place] [address] Work Phone: Nitroimidazoles (antibiotic) (1 source) metroNIDAZOLE; Translations: [Flagyl] Drug Allergy [place] [address] Work Phone: Penicillins (antibiotic) (1 source) Penicillins; Translations: [Penicillins] Drug Allergy [place] [address] Work Phone: Sulfonamides (antibiotic) (1 source) Sulfonamides (Antibiotic); Translations: [Sulfa Drugs] Drug Allergy [place] [address] Work Phone: Unclassified (1 source) Cinnamon Flavor OIL; Translations: [Cinnamon Flavor OIL] Allergy to drug (finding) [place] [address] Work Phone: (2 sources) cinnamon preparation; Translations: [CINNAMON] Drug Allergy 9 [facility] Repository (2 sources) codeine; Translations: [CODEINE] Drug Allergy 9 [facility] Repository (4 sources) dicyclomine; Translations: [DICYCLOMINE] Drug Allergy 4 [facility] Repository (2 sources) influenza virus vaccine; Translations: [FLU VACC [id number] 65YR UP(PF)] Drug Allergy 6 [facility] Repository (2 sources) liraglutide; Translations: [LIRAGLUTIDE] Drug Allergy 7 [facility] Repository (2 sources) metFORMIN; Translations: [METFORMIN HCL] Drug Allergy 4 [facility] Repository (2 sources) metroNIDAZOLE; Translations: [METRONIDAZOLE HCL] Drug Allergy 4 [facility] Repository (4 sources) Penicillins; Translations: [PENICILLINS] Propensity to adverse reactions to drug (disorder) 9 [facility] Repository (2 sources) sulfaSALAzine; Translations: [SULFASALAZINE] Drug Allergy 9 [facility] Repository (2 sources) Sulfonamides (Antibiotic); Translations: [SULFA (SULFONAMIDE ANTIBIOTICS)] Propensity to adverse reactions to drug (disorder) 9 [facility] Repository (2 sources) INFLUENZA VIRUS VACCINES; Translations: [INFLUENZA VIRUS VACCINES] Propensity to adverse reactions to drug (disorder) [facility] ([facility] sources) liraglutide Drug Allergy [facility] 120 Work Phone: (2 sources) metFORMIN [facility] Work Phone: (2 sources) metroNIDAZOLE Drug Allergy [facility] 120 Work Phone: (2 sources) Sulfonamides (Antibiotic) Allergy to drug (finding) [facility] 120 Work Phone: (1 source) Hmg-Coa Reductase Inhibitors (Statins); Translations: [TFTRHIR-YSM-YNI REDUCTASE INHIBITORS] Propensity to adverse reactions to drug (disorder) 4 [facility] Repository (1 source) ranolazine; Translations: [RANOLAZINE] Drug Allergy 9 [facility] Repository Medications Completed/Discontinued Medications Medication Drug Class(es) Dates Sig (Normalized) Sig (Original) 0.4 ml adalimumab 100 mg/ml prefilled syringe (1 source) Tumor Necrosis Factor Isaac Start: 11-07-2019 Humira 40 MG/0.4ML Subcutaneous Prefilled Syringe Kit Quantity: 2 Refills: 0 Start : 07-Nov-2019 Active ALPRAZolam 0.5 mg oral tablet (3 sources) Benzodiazepine Start: 05-21-2016 take 0.5 tablet by mouth twice daily as needed ALPRAZolam 0.5 MG Oral Tablet TAKE ONE-HALF TABLET BY MOUTH TWICE DAILY NEEDED Quantity: 30 Refills: 0 Ordered: 27-Jul-2016 DO Start : 21-May-2016 Active Bacitracin (2 sources) Bacitracin OINT Quantity: 0 Refills: 0 Ordered: 20-Dec-2019 DO Active Problems Active Problems Problem Classification Problem Date Documented Da te Episodic/Chronic Chronic kidney disease (3 sources) Chronic kidney disease; Translations: [Chronic kidney disease, unspecified] Chronic Chronic kidney disease (1 source) Chronic kidney disease Onset: 10-21-2016 Chronic obstructive pulmonary disease and bronchiectasis (3 sources) Chronic obstructive lung disease; Translations: [Chronic airway obstruction, not elsewhere classified] Chronic Chronic obstructive pulmonary disease and bronchiectasis (1 source) Chronic obstructive pulmonary disease and bronchiectasis Onset: 10-21-2016 Congestive heart failure; nonhypertensive (3 sources) Congestive heart failure; Translations: [Congestive heart failure, unspecified] Chronic Congestive heart failure; nonhypertensive (1 source) Congestive heart failure; nonhypertensive Onset: 10-21-2016 Coronary atherosclerosis and other heart disease (3 sources) Coronary arteriosclerosis; Translations: [Coronary atherosclerosis of unspecified type of vessel, [place] or graft] Chronic Coronary atherosclerosis and other heart disease (1 source) Coronary atherosclerosis and other heart disease Onset: 10-21-2016 Diabetes mellitus without complication (3 sources) Type 2 diabetes mellitus; Translations: [Diabetes mellitus without mention of complication, type II or unspecified type, not stated as uncontrolled] Chronic Diabetes mellitus without complication (1 source) Diabetes mellitus without complication Onset: 10-21-2016 Disorders of lipid metabolism (3 sources) Hyperlipidemia; Translations: [Other and unspecified hyperlipidemia] Chronic Essential hypertension (3 sources) Hypertensive disorder; Translations: [Unspecified essential hypertension] Chronic Hepatitis (2 sources) Nonalcoholic steatohepatitis; Translations: [Other chronic nonalcoholic liver disease] Chronic Noninfectious gastroenteritis (3 sources) Chronic diarrhea; Translations: [Diarrhea] Episodic Other disorders of stomach and duodenum (3 sources) Gastroparesis syndrome; Translations: [Gastroparesis] Episodic Other gastrointestinal disorders (3 sources) Ileostomy present; Translations: [Ileostomy status] Chronic Other gastrointestinal disorders (2 sources) H/O: ulcerative colitis; Translations: [Personal history of other diseases of digestive system] Episodic Other liver diseases (2 sources) Liver mass; Translations: [Liver mass] Chronic Other liver diseases (1 source) Liver mass; Translations: [Other specified disorders of liver] Episodic Other lower respiratory disease (3 sources) Hypoxemia; Translations: [Hypoxemia] Episodic Pancreatic disorders (not diabetes) (3 sources) Recurrent pancreatitis; Translations: [Chronic pancreatitis] Episodic Residual codes; unclassified (3 sources) Sleep apnea; Translations: [Unspecified sleep apnea] Chronic Unclassified (1 source) Unknown / UNK(Unknown) Onset: 07-06-2017 Unclassified (4 sources) Acute pancreatitis without necrosis or infection, unsp / K85.90(ICD-10) Onset: 10-08-2016 Unclassified (1 source) Noninfective gastroenteritis and colitis, unspecified / K52.9(ICD-10) Onset: 10-08-2016 Unclassified (1 source) Migraine, unsp, not intractable, without status migrainosus / G43.909(ICD-10) Onset: 10-21-2016 Unclassified (2 sources) Other chronic pancreatitis / K86.1(ICD-10) Onset: 10-21-2016 Unclassified (1 source) 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 / I13.0(ICD-10) Onset: 10-21-2016 Unclassified (1 source) Obstructive sleep apnea (adult) (pediatric) / G47.33(ICD-10) Onset: 10-21-2016 Unclassified (1 source) Anxiety disorder, unspecified / F41.9(ICD-10) Onset: 10-21-2016 Unclassified (1 source) Allergy status to penicillin / Z88.0(ICD-10) Onset: 10-21-2016 Unclassified (1 source) Allergy status to sulfonamides status / Z88.2(ICD-10) Onset: 10-21-2016 Unclassified (1 source) Personal history of nicotine dependence / Z87.891(ICD-10) Onset: 10-21-2016 Unclassified (1 source) half-way (current) use of aspirin / Z79.82(ICD-10) Onset: 10-21-2016 Unclassified (1 source) Presence of coronary angioplasty implant and graft / Z95.5(ICD-10) Onset: 10-21-2016 Unclassified (2 sources) Idiopathic acute pancreatitis without necrosis or infection; Translations: [Idiopathic acute pancreatitis without necrosis or infection] Onset: 09-03-2016 Past or Other Problems Problem Classification Problem Date Documented Da te Episodic/Chronic Unclassified (1 source) Acute pancreatitis without necrosis or infection, unsp; Translations: [Acute pancreatitis without necrosis or infection, unsp] Onset: 10-21-2016 NEGATED: Highlighted row has not occurred!Residual codes; unclassified (2 sources) Disease Episodic Results Test Name Value Interpretation Reference Range Facil ity Vital Signs Date Time Vital Sign Value Performing Clinician Faci lity 10-14-2020 11:35-0400 BMI (Body Mass Index) 30.54 kg/m2 Brennan Duque [facility] 120 Work Phone: 12-20-2019 11:35-0400 Body Temperature 98.2 [degF] Brennan Duque [facility] 120 Work Phone: 12-20-2019 11:35-0400 Body weight 88.45 kg Brennan Duque [facility] Work Phone: 12-20-2019 11:35-0400 BP Diastolic 70 mm[Hg] [facility] 120 Work Phone: 12-20-2019 11:35-0400 BP Systolic 120 mm[Hg] Brennan Duque [facility] 120 Work Phone: 12-20-2019 11:35-0400 BSA (Body Surface Area) 2 m2 Brennan Duque [facility] 120 Work Phone: 12-20-2019 11:35-0400 Height 170.18 cm Brennan Duque [facility] 120 Work Phone: 11-30-2019 11:55-0400 BMI (Body Mass Index) 30.54 kg/m2 Brennan Duque [facility] 120 Work Phone: 11-30-2019 11:55-0400 Body weight 88.45 kg Brennan Duque [facility] 120 Work Phone: 11-30-2019 11:55-0400 BP Diastolic 60 mm[Hg] Brennan Duque [facility] 120 Work Phone: 11-30-2019 11:55-0400 BP Systolic 122 mm[Hg] Brennan Duque [facility] 120 Work Phone: 11-30-2019 11:55-0400 BSA (Body Surface Area) 2 m2 Brennan Duque [facility] 120 Work Phone: 11-30-2019 11:55-0400 Height 170.18 cm Brennan Duque [facility] 120 Work Phone: 11-30-2019 11:55-0400 Pulse (Heart Rate) 66 /min Brennan Duque [facility] 120 Work Phone: 11-30-2019 11:55-0400 Pulse Oximetry 96 % Brennan Duque [facility] 120 Work Phone: Encounters Encounter Date Encounter Type Care Provider Facility Start: 02-18-2022 End: 02-18-2022 ambulatory MALA MADRIGAL Facility:[facility] Start: 10-23-2020 Rx Renewal Mala Zurita Ol eghe [facility] Work Phone: Start: 12-20-2019 Patient encounter procedure Brennan Duque [facility] [facility] Work Phone: Start: 11-30-2019 Patient encounter procedure Brennan Duque [facility] [facility] 120 Work Phone: Start: 07-06-2017 Ambulatory DEAN May GERBER [facility] Start: 10-21-2016 End: 10-21-2016 Ambulatory Huma Ocasio [place] Start: 10-08-2016 Ambulatory Mena Brown Fac ility:[facility] Start: 09-03-2016 Ambulatory Alireza Tavares [facility] Procedures Date Procedure Procedure Detail Performing Clinician Start: 11-30-2019 Alpha-fetoprotein serum Brennan Duque Start: 11-30-2019 Assay of ferritin Brennan Duque Start: 11-30-2019 Blood count complete auto&auto difrntl wbc Brennan Duque Start: 11-30-2019 C-reactive protein Brennan Duque Start: 11-30-2019 Carcinoembryonic antigen cea Brennan Duque Start: 11-30-2019 CELIAC DISEASE SEROLOGY PANEL Brennan timmons Start: 11-30-2019 Ceruloplasmin Brennan Duque Start: 11-30-2019 Comprehensive metabolic 2000 panel Brennan Duque Start: 11-30-2019 Cyanocobalamin vitamin b-12 Brennan Duque Start: 11-30-2019 Hepatitis A Ab IGM Brennan Duque Start: 11-30-2019 Hepatitis b surf antibody hbsab Brennan Morales Start: 11-30-2019 Hepatitis c antibody Brennan Duque Start: 11-30-2019 Iaad ia hepatitis b surface antigen Brennan Duque Start: 11-30-2019 Smooth Muscle Antibody Screen Brennan timmons Start: 10-21-2016 Anesth, upper gi visualize Huma Gaytantrevor ng Start: 10-21-2016 Esophagogastroduodenoscopy us scope w/adj strxrs Huma Ninfa section Brennan Duque Cholecystectomy Brennan Duque History of CABG Brennan Duque History of Cardiac C ath Procedure Outcome: Brennan Duque History of Ileostomy Brennan christensen Plan of Treatment Date Care Activity Detail Author Start: 12-16-2020 FUV, Provider: Brennan Duque, Status: Pen, Time: 10:00 AM FUV, Provider: Brennan Duque, Status: Pen, Time: 10:00 AM [facility] Work Phone: Payers Date Payer Category Payer Unknown [id number] Unknown [id number] Unknown Social History Date Type Detail Facility [facility] Work Phone: NEGATED: Highlighted row - - [facility] 120 Work Phone: Medical Equipment Procedure Code Equipment Code Equipment Origin al Text Equipment Identifier Dates BD Insulin Syrin ge U/F 30G X 1/2 1 ML USE TO INJECT METHOTREXATE ONCE A WEEK Quantity: 20 Refills: 0 Start : 08-Aug-2019 Active Start: 08-08-2019 BD Insulin Syrin ge U/F 30G X 1/2 1 ML USE TO INJECT METHOTREXATE ONCE A WEEK Quantity: 20 Refills: 0 Start : 08-Aug-2019 Active Start: 08-08-2019 Functional Status Date Assessment Result Facility NEGATED: Highlighted row Functional performance Functional status health issues are not documented [facility] [place] [facility] Work Phone: Mental Status Date Assessment Result Facility NEGATED: Highlighted row Cognitive function [Interpretation] Cognitive status health issues are not documented [facility] Work Phone: Progress note 02-18-2022 Note Date & Type Note Facility 02-18-2022 Note HNO ID: [id number] Author: Edwige Joy RD Service: ? Author Type: Registered Dietitian Type: Progress Notes Filed: 02/20/2022 3:11 PM Note Text: GI Nutrition TeleHealth Consult - Initial Assessment This visit was performed via telehealth due to the COVID-19 epidemic as an effort to protect patients and minimize exposure. Consent from patient received to conduct visit using telehealth. This Team Access Model visit is a virtual encounter. It required patient-provider interaction for the medical decision making as documented below. Nutrition Diagnosis: Altered Gastrointestinal Tract Function, related to, Ulcerative colitis, as evidenced by increased ostomy output intermittently . RECOMMENDED MALNUTRITION DIAGNOSIS: NO MALNUTRITION IDENTIFIED NUTRITION CARE PLAN Nutrition Intervention February 18, 2022 : Diet: --lower roughage mediterranean diet --add in foods from list provided Vitamins/Minerals: --continue current Oral supplements: --lower sugar high protein drink as needed Nutrition Monitoring AND Evaluation: improvement in GI symptoms Criteria: per pt report Need for Follow up: as needed This is a 61 year-old female with an underlying diagnosis of ulcerative colitis and inflammatory arthritis who is followed by Dr. Acuña. PMH of psoriatic arthritis, psoriasis, Type 2 DM, Gastroparesis, stage 3 Fatty liver, CKD stage 3, ulcerative colitis and had colectomy, now with ileostomy bag. Current not being treated with any biologics at this time. Had COVID in 2020 and was taken off medications and was put on O2 which was just taken off recently this year. Today, patient reports the following: --pt is in a lot of back pain and is struggling to get out of bed today --has a GI doctor that management her UC and liver disease, and Short bowl syndrome --Insulin pump (she just puts in the carbs) --when she has to force herself to eat she will abd cramping/pain, nausea, and vomiting --pt had a kink in the bowel, and had surgery to fix it, but had some surgical complications and then had to move the ostomy to the other side (2007) --goes out to eat every now and then used to be twice/week for lunch but now does not go out to eat. Has tried to cut of red meat from diet --Pt is feeling hydrated (but not sure if she would be able to feel dehydrated) sometimes with dark urine Current Clinical Symptoms Empties the ba times on average, on bad days empties 10+ times/day once month, typically 1/2 full when emptying, pt has closed rectum Consistency: loose, thin pudding Bloody bowel movements: no, bleeding on the skin of outside of the stoma Abdominal pain: yes after she eats Abdominal distention: no Nausea/vomiting: yes, when she is having an episode, Heartburn/reflux: no Intake: Appetite is poor, can go all day without eating Diet History: Breakfast - skips often, but sometimes will have a pre made sausage sand which or little tony cakes, yogurt every now and then Snack - pretzels, string cheese or nuts, popcorn (will see hulls in the bag) Lunch - meals of [employer]/meal delivery service, meat balls and spaghetti, chicken, green beans, corn laine now and then, carrots, broccoli and cauliflower (but makes her gassy), potatoes or pasta (typically run 40-60gm carbs at meal) typically get these meals 5-7 days per week Snack - popcorn, or something sweet Dinner - meals from above, friend sends left overs. Chicken, fish like cod, tuna, starches every now and then, mac and cheese, but will always have protein and vegetable. Snack - sand which with salami, ham, cheese sometimes (nigerien, chinese) Beverages - diet coke drinks all day long, has been trying to back off, tea (with sugar small amount), water Vitamins/Supplements - --folic acid (d/c) --vitamin D 2000/day --Vitamin E Allergies/Intolerance: --cinnamon --peas (does not like) --broccoli or cauliflower (gas) --brussels (gas and bad pain) --corn bread (abd pain and constipated) --red meat (loose stools) Cinnamon, Dicyclomine, Azulfidine [Sulfasalazine], Codeine, Flagyl [Metronidazole Hcl], Fluzone High-Dose (Pf) [Flu Vacc [id number] 65yr Up(Pf)], Glucophage [Metformin Hcl], Influenza Virus Vaccines, Penicillins, Ranexa [Ranolazine], Sulfa (Sulfonamide Antibiotics), Victoza [Liraglutide], and Rncasfw-Sbi-Usw Reductase Inhibitors Medications: Current Outpatient Medications Medication Sig Dispense Refill folic acid 1 mg tablet TAKE 1 TABLET BY MOUTH EVERY DAY 90 tablet 1 adalimumab (HUMIRA,CF,) 40 mg/0.4 mL syringe kit INJECT 1 SYRINGE SUBCUTANEOUSLY EVERY 14 DAYS. 2 Syringe 2 metoclopramide HCl (REGLAN ORAL) Take by mouth. methotrexate, PF, 25 mg/mL soln Inject 0.8 mL subcutaneously one time a week. 0.8cc SC once/week 12 Vial 1 baclofen (LIORESAL) 10 mg tablet TAKE 1 TABLET BY MOUTH TWICE A DAY FILL 4 13 20 BREO ELLIPTA 100-25 mcg/dose inhaler INHALE 1 PUFF BY MOUTH EV (more content not included)... [facility] Summary Purpose Family History No Family History Records Found Mother Name Dates Details Family history of diabetes m mary(V18.0, Z83.3) Status:Active Family history of cerebrovas cular accident (CVA)(V17.1, Z82.3) Status:Active Brother Name Dates Details Family history of congestive heart failure(V17.49, Z82.49) Status:Active Mother Name Dates Details Family history of diabetes m mary(V18.0, Z83.3) Status:Active Family history of cerebrovas cular accident (CVA)(V17.1, Z82.3) Status:Active Brother Name Dates Details Family history of congestive heart failure(V17.49, Z82.49) Status:Active Unknown Family Member Name Dates Details Family history of diabetes m mary: Mother(V18.0, Z83.3) Status:Active Family history of cerebrovas cular accident (CVA): Mother(V17.1, Z82.3) Status:Active Family history of congestive heart failure: Brother(V17.49, Z82.49) Status:Active Advance Directives No Advanced Directives Records FoundNo Advanced Directives Records FoundNo Advanced Directives Records FoundNo Advanced Directives Records FoundNo Advanced Directives Records FoundNo Advanced Directives Records FoundNo Advanced Directives Records Found Additional Source Comments INFORMATION SOURCE (unrecogn ized section and content) DATE CREATED AUTHOR AUTHOR'S ORGANIZ ATION 08/31/2017 [facility] DATE CREATED AUTHOR AUTHOR'S ORGANIZ ATION 09/01/2017 [facility] DATE CREATED AUTHOR AUTHOR'S ORGANIZ ATION 09/01/2017 [facility] DATE CREATED AUTHOR AUTHOR'S ORGANIZ ATION 06/18/2020 [employer] DATE CREATED AUTHOR AUTHOR'S ORGANIZ ATION 02/14/2021 [facility] DATE CREATED AUTHOR AUTHOR'S ORGANIZ ATION 02/25/2022 [facility] FOR RECORDS PERTAINING TO PATIENTS WHO ARE OR HAVE BEEN ENROLLED IN A CHEMICAL DEPENDENCY/SUBSTANCEABUSE PROGRAM, SOME INFORMATION MAY BE OMITTED. This clinical summary was aggregated from multiple sources. Caution should be exercised in using it in the provision of clinical care. This summary normalizes information from multiple sources, and as a consequence, information in this document may materially change the coding, format and clinical context of patient data. In addition, data may be omitted in some cases. CLINICAL DECISIONS SHOULD BE BASED ON THE PRIMARY CLINICAL RECORDS. [facility] [employer] [facility]. provides no warranty or guarantee of the accuracy or completeness of information in this document.
== END 2023-03-02 17:20 | disposition home or self-care (01) ==
PROVIDERS: Emergency Provider Emergency Medicine; PCP Internal Medicine; Visit Provider Emergency Medicine
DX: E86.0 Dehydration (principal); J44.9 Chronic obstructive pulmonary disease, unspecified; E11.22 Type 2 diabetes mellitus with diabetic chronic kidney disease; E11.43 Type 2 diabetes mellitus with diabetic autonomic (poly)neuropathy; N18.4 Chronic kidney disease, stage 4 (severe); R19.7 Diarrhea, unspecified; J18.9 Pneumonia, unspecified organism; D72.829 Elevated white blood cell count, unspecified; I25.10 Atherosclerotic heart disease of native coronary artery without angina pectoris; G47.33 Obstructive sleep apnea (adult) (pediatric); Z79.01 Long term (current) use of anticoagulants; Z95.5 Presence of coronary angioplasty implant and graft; Z86.16 Personal history of COVID-19; Z87.891 Personal history of nicotine dependence; Z95.1 Presence of aortocoronary bypass graft
CPT/HCPCS: 71045; 80048; 85025; 87428; 93005; 94640; 99285; J7030; A4216

== ENCOUNTER 2023-03-05 10:46 | Outpatient (CLI) | payer MEDICARE, MEDICAID, SELFPAY ==
[2023-02-18 12:34] VITALS: BMI 30.9
[2023-03-05 10:51] VITALS: BP 145/61; PULSE 72; RESP 18; TEMP 35.9; O2SAT 97; BMI 31.3
[2023-03-05] MEDS: 0.9% Normal Saline (1000mL) 1,000 ML 999 ML IV ×2 (11:12→12:19)
[2023-03-05] MEDS: 0.9% NaCl Peripheral Flush Adult/Peds IV (11:12)
--- OUTSIDE RECORDS SUMMARY | 2023-03-05 11:20 | XMS RPT_ITS | CCD ---
Author Name Unknown Address [address] [place] [address] Organization [facility] Care Team Providers Care Lower In Supervisor Name Role Phone GERBER, DEAN C Unavailable [...] PCP Unavailable Unavailable Oleghe, Efewongbe B Unavailable [phone] Unavailable Unavailable OLEGHE, EFEWONGBE B Primary Care Unavailable EDWIGE JOY Attending Unavailable FRIEND, JACQUELINE Zurita Referring Unavailable Allergies Allergy Classification Reported Allergen(s) Allergy Type Date of Onset Reaction(s) Facility Anticholinergics (1 source) Dicyclomine; Translations: [dicyclomine] Drug Allergy [facility] [place] [address] Work Phone: liraglutide (1 source) liraglutide; Translations: [Victoza SOPN] Drug [facility]ergy [facility] Work Phone: metFORMIN (1 source) metFORMIN; Translations: [metformin] Drug Allergy [facility] [place] [address] Work Phone: Nitroimidazoles (antibiotic) (1 source) metroNIDAZOLE; Translations: [Flagyl] Drug Allergy [place] [address] Work Phone: Penicillins (antibiotic) (1 source) Penicillins; Translations: [Penicillins] Drug Allergy [place] [address] Work Phone: Sulfonamides (antibiotic) (1 source) Sulfonamides (Antibiotic); Translations: [Sulfa Drugs] Drug Allergy [place] [address] Work Phone: Unclassified (1 source) Cinnamon Flavor OIL; Translations: [Cinnamon Flavor OIL] Allergy to drug (finding) [place] [address] Work Phone: (2 sources) cinnamon preparation; Translations: [CINNAMON] Drug Allergy 9 [facility] Repository (2 sources) codeine; Translations: [CODEINE] Drug Allergy 9 [facility] Repository (4 sources) dicyclomine; Translations: [DICYCLOMINE] Drug Allergy 4 [facility] Repository (2 sources) influenza virus vaccine; Translations: [FLU VACC [id number] 65YR UP(PF)] Drug Allergy 6 [facility] Repository (2 sources) liraglutide; Translations: [LIRAGLUTIDE] Drug Allergy 7 [facility] Repository (2 sources) metFORMIN; Translations: [METFORMIN HCL] Drug Allergy 4 [facility] Repository (2 sources) metroNIDAZOLE; Translations: [METRONIDAZOLE HCL] Drug Allergy 4 [facility] Repository (4 sources) Penicillins; Translations: [PENICILLINS] Propensity to adverse reactions to drug (disorder) 9 [facility] Repository (2 sources) sulfaSALAzine; Translations: [SULFASALAZINE] Drug Allergy 9 [facility] Repository (2 sources) Sulfonamides (Antibiotic); Translations: [SULFA (SULFONAMIDE ANTIBIOTICS)] Propensity to adverse reactions to drug (disorder) 9 [facility] Repository (2 sources) INFLUENZA VIRUS VACCINES; Translations: [INFLUENZA VIRUS VACCINES] Propensity to adverse reactions to drug (disorder) 6 [facility] ([facility] sources) liraglutide Drug Allergy [facility] 120 Work Phone: (2 sources) metFORMIN Drug Allergy [facility] Work Phone: (2 sources) metroNIDAZOLE Drug Allergy [facility] 120 Work Phone: (2 sources) Sulfonamides (Antibiotic) Allergy to drug (finding) [facility] 120 Work Phone: (1 source) Hmg-Coa Reductase Inhibitors (Statins); Translations: [HLBYCTJ-WRH-LHW REDUCTASE INHIBITORS] Propensity to adverse reactions to drug (disorder) 4 [facility] Repository (1 source) ranolazine; Translations: [RANOLAZINE] Drug Allergy 9 [facility] Repository Medications Completed/Discontinued Medications Medication Drug [...] [Coronary atherosclerosis of unspecified type of vessel, [place] or graft] Chronic Coronary atherosclerosis and other [...] / Z87.891(ICD-10) Onset: 10-21-2016 Unclassified (1 source) longterm (current) use of aspirin / Z79.82(ICD-10) Onset: [...] (Body Mass Index) 30.54 kg/m2 Brennan Duque [facility] 120 Work Phone: 12-20-2019 11:35-0400 Body Temperature 98.2 [degF] Brennan Duque [facility] 120 Work Phone: 12-20-2019 11:35-0400 Body weight 88.45 kg Brennan Duque [facility] Work Phone: 12-20-2019 11:35-0400 BP Diastolic 70 mm[Hg] [facility] Work Phone: 12-20-2019 11:35-0400 BP Systolic 120 mm[Hg] Brennan Duque [facility] Work Phone: 12-20-2019 11:35-0400 BSA (Body Surface Area) 2 m2 Brennan Duque [facility] 120 Work Phone: 12-20-2019 11:35-0400 Height 170.18 cm Brennan Duque [facility] Work Phone: 11-30-2019 11:55-0400 BMI (Body Mass Index) 30.54 kg/m2 Brennan Duque [facility] 120 Work Phone: 11-30-2019 11:55-0400 Body weight 88.45 kg Brennan Duque [facility] 120 Work Phone: 11-30-2019 11:55-0400 BP Diastolic 60 mm[Hg] Brennan Duque [facility] 120 Work Phone: 11-30-2019 11:55-0400 BP Systolic 122 mm[Hg] Brennan Duque [facility] 120 Work Phone: 11-30-2019 11:55-0400 BSA (Body Surface Area) 2 m2 Brennan Duque [facility] 120 Work Phone: 11-30-2019 11:55-0400 Height 170.18 cm Brennan Duque [facility] 120 Work Phone: 11-30-2019 11:55-0400 Pulse (Heart Rate) 66 /min Brennan Duque [facility] 120 Work Phone: 11-30-2019 11:55-0400 Pulse Oximetry 96 % Brennan Duque [facility] Work Phone: Encounters Encounter Date Encounter Type Care Provider Facility Start: 02-18-2022 End: 02-18-2022 ambulatory MALA MADRIGAL Facility:[facility] Start: 10-23-2020 Rx Renewal Mala Zurita Ol [place] Work Phone: [facility] Work Phone: Start: 12-20-2019 Patient encounter procedure Brennan Duque [facility] [facility] Work Phone: Start: 11-30-2019 Patient encounter procedure Brennan Duque [facility] [facility] 120 Work Phone: Start: 07-06-2017 Ambulatory DEAN May GERBER [facility] Start: 10-21-2016 End: 10-21-2016 Ambulatory Huma Ocasio Facility:[facility] Start: 10-08-2016 Ambulatory Mena Brown Fac ility:[facility] Start: 09-03-2016 Ambulatory Alireza Tavares [facility] Procedures Date Procedure Procedure Detail Performing [...] Brennan Duque, Status: Pen, Time: 10:00 AM [facility] Work Phone: Payers Date Payer Category Payer Unknown [id number] Unknown [id number] Unknown Social History Date Type Detail Facility Former smoker [facility] Work Phone: NEGATED: Highlighted row - - [facility] 120 Work Phone: Medical Equipment [...] Type Note Facility 02-18-2022 Note HNO ID: [id number] Author: Edwige Joy RD Service: ? Author [...] pre made sausage sand which or little toyn cakes, yogurt every now and then Snack - pretzels, string cheese or nuts, popcorn (will see hulls in the bag) Lunch - meals of [employer]/meal delivery service, meat balls and spaghetti, chicken, [...] sand which with salami, ham, cheese sometimes (gabonese, maldivian) Beverages - diet coke drinks all day [...] [Metronidazole Hcl], Fluzone High-Dose (Pf) [Flu Vacc [id number] 65yr Up(Pf)], Glucophage [Metformin Hcl], Influenza Virus Vaccines, Penicillins, Ranexa [Ranolazine], Sulfa (Sulfonamide Antibiotics), Victoza [Liraglutide], and Gzvivdh-Cua-Qug Reductase Inhibitors Medications: Current Outpatient Medications Medication [...] BY MOUTH EV (more content not included)... [facility] Summary Purpose Family History No Family History [...] DATE CREATED AUTHOR AUTHOR'S ORGANIZ ATION 08/31/2017 [facility] DATE CREATED AUTHOR AUTHOR'S ORGANIZ ATION 09/01/2017 [facility] DATE CREATED AUTHOR AUTHOR'S ORGANIZ ATION 09/01/2017 [facility] DATE CREATED AUTHOR AUTHOR'S ORGANIZ ATION 06/18/2020 [employer] DATE CREATED AUTHOR AUTHOR'S ORGANIZ ATION 02/14/2021 [facility] DATE CREATED AUTHOR AUTHOR'S ORGANIZ ATION 02/25/2022 [facility] FOR RECORDS PERTAINING TO PATIENTS WHO ARE [...] BE BASED ON THE PRIMARY CLINICAL RECORDS. [facility] [employer] [facility]. provides no warranty or guarantee of the accuracy or completeness of information in this document.
[2023-03-05 13:37] VITALS: BP 137/56; PULSE 73; RESP 16; O2SAT 97
== END 2023-03-05 10:47 | disposition home or self-care (01) ==
LOC: MEDOUTP 10:46
PROVIDERS: PCP Internal Medicine; Referring Provider Internal Medicine Gastroenterology; Visit Provider Internal Medicine Gastroenterology
DX: R19.8 Other specified symptoms and signs involving the digestive system and abdomen (principal)
CPT/HCPCS: 96360; 96361; J7030; A4216

== ENCOUNTER → 2023-03-10 | Outpatient (CLI) | payer MEDICARE, MEDICAID, SELFPAY ==
[2023-02-18 12:34] VITALS: BMI 30.9
[2023-03-10 12:27] LABS: Absolute Lymphocyte Count 2.84 X10^3/uL (0.83-4.51); Absolute Neutrophil Count 5.3 X10^3/uL (2.0-7.7); Basophil# 0.07 X10^3/uL; Basophil% 0.7 % (0-1); Eosinophil# 0.33 X10^3/uL; Eosinophils% 3.4 % (0-5); Hematocrit 38.7 % (37-47); Hemoglobin 11.7 g/dL (12.0-15.0); Lymphocyte # 2.84 X10^3/ul (0.83-4.51); Lymphocyte % 29.5 % (19-41); Mean Corp Hgb Conc 30.2 g/dL (32-36); Mean Corpuscular Hgb 26.6 pg (27.0-32.0); Mean Platelet Vol. 12.1 fl (6.2-12.0); Monocyte# 0.77 X10^3/uL; NRBC Flagged by Analyzer 0 % (0-5); Neutrophil # 5.31 X10^3/uL (2.7-7.7); Neutrophil % 55.2 % (47-70); Platelet Count 231 K/mm3 (150-450); RBC Distribution Width CV 15.8 % (11.6-14.6); RBC Distribution Width SD 51.2 fl (35.1-43.9); White Blood Count 9.6 K/mm3 (4.4-11.0)
[2023-03-10 13:13] LABS: ALB/GLOB Ratio 0.6 RATIO (0.9-2.4); AST(SGOT) 14 U/L (15-37); Alanine Aminotransfer ALT/SGPT 15 U/L (13-56); Albumin, Serum 2.6 g/dL (3.2-5.0); Alkaline Phosphatase 156 U/L (45-117); Anion Gap 7 (5-15); BUN 33 mg/dL (7-18); BUN/Creat Ratio 17.1 RATIO (10-20); Calcium,Total 9.4 mg/dL (8.5-10.1); Chloride 108 mmol/L (98-107); Creatinine, Serum 1.93 mg/dL (0.55-1.02); EST Glomerular Filtration Rate 28 mL/min (>60); Est Glom Filt Rate - Afr Amer 34 mL/min (>60); Globulin 4.6 g/dL (2.2-4.2); Glucose 280 mg/dL (74-106); Potassium 4.4 mmol/L (3.5-5.1); Protein, Total 7.2 g/dL (6.4-8.2); Sodium Level 137 mmol/L (136-145)
== END | disposition home or self-care (01) ==
LOC: BIMLAB 11:17
PROVIDERS: PCP Internal Medicine; Referring Provider Physician Assistant; Visit Provider Physician Assistant
DX: J06.9 Acute upper respiratory infection, unspecified (principal); E66.09 Other obesity due to excess calories; Z68.31 Body mass index [BMI] 31.0-31.9, adult
CPT/HCPCS: 36415; 80053; 85025; 87631

== ENCOUNTER 2023-03-18 06:38 | Inpatient (IN) | payer MEDICARE, MEDICAID, SELFPAY ==
[2023-02-18 12:34] VITALS: BMI 30.9
[2023-03-18 06:39] VITALS: BP 155/76; PULSE 105; RESP 15; TEMP 36.1; O2SAT 98; BMI 31.1
--- NOTE | 2023-03-18 07:09 | EKG12_ITS ---
Test Reason : ABD PAIN Blood Pressure : / mmHG Vent. Rate : 107 BPM Atrial Rate : 107 BPM P-R Int : 174 ms QRS Dur : 092 ms QT Int : 358 ms P-R-T Axes : 040 -50 119 degrees QTc Int : 477 ms Sinus tachycardia Left anterior fascicular block Left ventricular hypertrophy with repolarization abnormality ( R in aVL , Parminder product ) Abnormal ECG Confirmed by CHLOÉ DOMINGUEZ, AL ([id number]), business editor ISABELLA BUTLER ([id number]) on 03/19/2023 7:18:43 AM Referred By: DENISSE Confirmed By:AL LUEVANO MD
[2023-03-18] MEDS: Morphine 4 MG/ML Syringe IV (07:15)
[2023-03-18] MEDS: Dicyclomine 20 MG/2 ML Vial IM (07:15)
[2023-03-18] MEDS: Metoclopramide 10 MG/2 ML Vial 5 MG IV (07:15)
[2023-03-18 07:20] LABS: Absolute Lymphocyte Count 1.31 X10^3/uL (0.83-4.51); Absolute Neutrophil Count 9.7 X10^3/uL (2.0-7.7); Basophil# 0.09 X10^3/uL; Basophil% 0.8 % (0-1); Eosinophil# 0.23 X10^3/uL; Hematocrit 53.4 % (37-47); Hemoglobin 16.4 g/dL (12.0-15.0); Lymphocyte # 1.31 X10^3/ul (0.83-4.51); Lymphocyte % 11.1 % (19-41); Mean Corp Hgb Conc 30.7 g/dL (32-36); Mean Corpuscular Hgb 26.4 pg (27.0-32.0); Mean Platelet Vol. 11.6 fl (6.2-12.0); Monocyte# 0.34 X10^3/uL; Monocyte% 2.9 % (0-10); NRBC Flagged by Analyzer 0.2 % (0-5); Neutrophil # 9.72 X10^3/uL (2.7-7.7); Neutrophil % 82.7 % (47-70); Platelet Count 246 K/mm3 (150-450); RBC Distribution Width CV 17.1 % (11.6-14.6); Red Blood Count 6.21 M/mm3 (4.2-5.4); White Blood Count 11.8 K/mm3 (4.4-11.0)
[2023-03-18 07:43] LABS: AST(SGOT) 26 U/L (15-37); Alanine Aminotransfer ALT/SGPT 23 U/L (13-56); Albumin, Serum 3.6 g/dL (3.2-5.0); Alkaline Phosphatase 161 U/L (45-117); Anion Gap 11 (5-15); BUN 44 mg/dL (7-18); BUN/Creat Ratio 17.7 RATIO (10-20); Bilirubin, Direct 0.18 mg/dL (0.00-0.30); Calcium,Total 10.9 mg/dL (8.5-10.1); Chloride 104 mmol/L (98-107); Creatinine, Serum 2.48 mg/dL (0.55-1.02); EST Glomerular Filtration Rate 21 mL/min (>60); Est Glom Filt Rate - Afr Amer 25 mL/min (>60); Estimated Creatinine Clearance 26.43 ml/min; Glucose 245 mg/dL (74-106); Lipase 43 U/L (13-75); Potassium 4.7 mmol/L (3.5-5.1); Protein, Total 9.6 g/dL (6.4-8.2); Sodium Level 134 mmol/L (136-145)
--- NOTE | 2023-03-18 07:54 | EX.ED.DYSGE1 ---
HPI History of Present Illness Chief Complaint: Abd Pain Detail of Chief Complaint: Diarrhea, dehydration Informant: patient Onset/Context/Timing Onset: Yesterday Narrative Narrative: Patient presents with high watery output from her ileostomy since 8 PM last evening. She states she has been emptying the bag every hour. She has not noted any bloody contents. She has had some nausea and vomiting. She states she feels dizzy and is having some muscle spasms and is concerned that she is dehydrated. She has not noted a fever. [facility] Medical History Acute kidney injury Anxiety Anxiety and depression Arthritis Avascular necrosis of bone of left hip BiPAP (biphasic positive airway pressure) dependence BMI 31.0-31.9,adult CAD (coronary artery disease) Cardiology follow-up encounter Cellulitis, abdominal wall Chronic back pain Chronic diastolic (congestive) heart failure Chronic narcotic use Chronic respiratory failure Chronic respiratory failure with hypoxia, on home O2 therapy CKD (chronic kidney disease), stage IV COPD (chronic obstructive pulmonary disease) Depression with anxiety Diabetic gastroparesis DM2 (diabetes mellitus, type 2) Elevated anti-tissue transglutaminase (tTG) IgA level Fatty liver FCHL (familial combined hyperlipidemia) Former smoker Gastric reflux Gastroparesis High output ileostomy History of CAD (coronary artery disease) History of COVID-19 Hx of diabetic gastroparesis Hyperlipidemia Hypertension Ileostomy present Insulin dependent diabetes mellitus Left shoulder pain Liver mass Loss of hearing Malaise and fatigue Menieres disease MGUS (monoclonal gammopathy of unknown significance) Migraine headache Myoclonic jerking Non-alcoholic fatty liver disease Nonalcoholic steatohepatitis Obesity Obstructive sleep apnea Psoriasis Secondary pulmonary arterial hypertension Short bowel syndrome Smoking greater than 20 pack years Type 2 diabetes mellitus with diabetic polyneuropathy Ulcerative colitis Vitamin B12 deficiency Vitamin D deficiency Walker as ambulation aid Wears glasses Home Medications aspirin 81 mg tablet,delayed release 81 mg PO DAILY Check with primary doctor 04/08/21 [History Last Taken 05/27/22] duloxetine 30 mg capsule,delayed release 90 mg PO DAILY Check with primary doctor 10/06/21 [History Last Taken 05/27/22] hyoscyamine sulfate 0.125 mg tablet 0.125 mg PO Q6H PRN dyspepsia #60 tabs 11/04/21 [Rx Last Taken 05/25/22] Wheel Chair 11/15/21 [History Last Taken Unknown] blood sugar diagnostic (True Metrix Glucose Test Strip) 11/15/21 [History Last Taken Unknown] blood-glucose meter,continuous (Dexcom G6 Sausage Cutter) 11/15/21 [History Last Taken Unknown] pen needle, diabetic 32 gauge x 5/32 (BD Ultra-Fine Key Pen Needle) 11/15/21 [History Last Taken Unknown] loperamide 2 mg capsule (Imodium A-D) 2 mg PO Q6H PRN loose stool #20 caps 11/18/21 [Rx Last Taken 05/14/22] nitroglycerin 0.4 mg sublingual tablet 0.4 mg sublingual Q5-15M PRN chest pain #25 tabs 11/20/21 [Rx Last Taken Unknown] ostomy supplies #1 ea 02/13/22 [Rx Last Taken Unknown] dicyclomine 10 mg capsule 20 mg PO DAILY Check with primary doctor 03/14/22 [History Last Taken 05/27/22] pantoprazole 40 mg tablet,delayed release See Rx Instructions .Route .COMPLEX #28 tabs 04/07/22 [Rx Last Taken 05/27/22] lamotrigine 100 mg tablet 100 mg PO DAILY 07/20/22 [History Last Taken Unknown] metoprolol tartrate 25 mg tablet 25 mg PO .COMPLEX bp #180 tabs 07/28/22 [Rx Last Taken Unknown] atorvastatin 80 mg tablet 80 mg PO QHS CHOLESTEROL LOWERING #90 tabs 08/04/22 [Rx Last Taken Unknown] blood-glucose transmitter (Dexcom G6 Transmitter device) #1 ea 08/07/22 [Rx Last Taken Unknown] metoprolol tartrate 50 mg tablet 50 mg PO .COMPLEX Check with primary doctor 09/02/22 [History Last Taken Unknown] Handicap Placard #1 ea 09/16/22 [Rx Last Taken Unknown] dapagliflozin propanediol 10 mg tablet (Farxiga) 10 mg PO DAILY #90 tabs 09/16/22 [Rx Last Taken Unknown] triamcinolone acetonide 0.1 % topical cream 1 applic topical BID PRN rash #453.6 grams 09/16/22 [Rx Last Taken Unknown] isosorbide dinitrate 30 mg tablet 30 mg PO BID heart #60 tabs 12/11/22 [Rx Last Taken Unknown] blood-glucose sensor (Dexcom G6 Sensor device) #9 ea 12/14/22 [Rx Last Taken Unknown] diphenoxylate-atropine 2.5 mg-0.025 mg tablet (Lomotil) 1 tab PO TID PRN diarrhea #90 tabs 01/10/23 [Rx Last Taken Unknown] insulin pump cart,automated,BT (Omnipod 5 G6 Pods (Gen 5) subcutaneous cartridge) #45 ea 01/13/23 [Rx Last Taken Unknown] Juanita Cohesive Seal 2 diameter #15 ea 01/18/23 [Rx Last Taken Unknown] Esenta Sting Free Adhesive Remover Wipe - #15 ea 01/18/23 [Rx Last Taken Unknown] Esenta Sting Free Skin Barrier [place], 50 mL - #15 ea 01/18/23 [Rx Last Taken Unknown] Esteem + Convex One-Piece Drainable Pre-Cut Pouch w/ visiClose, Durahesive, 12 panel [place], 1 03/15 #15 ea 01/18/23 [Rx Last Taken Unknown] clopidogrel 75 mg tablet 75 mg PO DAILY Check with primary doctor #90 tabs 02/04/23 [Rx Last Taken Unknown] pregabalin 75 mg capsule 75 mg PO BID pain #60 caps 02/04/23 [Rx Last Taken Unknown] ursodiol 300 mg capsule 300 mg PO BID #180 caps 02/04/23 [Rx Last Taken Unknown] blood sugar diagnostic (True Metrix Glucose Test Strip) #100 ea 02/08/23 [Rx Last Taken Unknown] buprenorphine 15 mcg/hour weekly transdermal patch 1 patch transdermal Q7D 02/10/23 [History Last Taken Unknown] melatonin 5 mg tablet 5 mg PO HS 02/10/23 [History Last Taken Unknown] cyclobenzaprine 10 mg tablet 10 mg PO TID PRN muscle spasm #30 tabs 02/24/23 [Rx Last Taken Unknown] ipratropium 0.5 mg-albuterol 3 mg (2.5 mg base)/3 mL nebulization soln 3 ml inhalation 6XD PRN shortness of breath or wheezing #90 mL 03/03/23 [Rx Last Taken Unknown] benzonatate 200 mg capsule 200 mg PO BID PRN cough #30 caps 03/10/23 [Rx Last Taken Unknown] insulin lispro 200 unit/mL (3 mL) subcutaneous pen (Humalog KwikPen U-200 Insulin) 130 unit (0.65 mL) subcut DAILY diabetes #60 mL 03/12/23 [Rx Last Taken Unknown] Allergy/AdvReac Type Severity Reaction Status Date / Time ciprofloxacin Allergy Intermediate Swelling Verified 03/10/23 10:13 cinnamon [Cinnamon] Allergy Anaphylaxis Verified 03/10/23 10:13 Influenza Virus Vaccines Allergy Shortness Verified 03/10/23 10:13 of breath liraglutide [From Victoza] Allergy Anaphylaxis Verified 03/10/23 10:13 metformin [From Glucophage] Allergy NEEDS Verified 03/10/23 10:13 FOLLOW-UP metronidazole [From Flagyl] Allergy Hives Verified 03/10/23 10:13 Metronidazole HCl Allergy Hives Verified 03/10/23 10:13 [From Flagyl] Penicillins Allergy Hives Verified 03/10/23 10:13 Sulfa (Sulfonamide Allergy Hives Verified 03/10/23 10:13 Antibiotics) aripiprazole [From Abilify] AdvReac hallucinati Verified 03/10/23 10:13 ons codeine AdvReac Stops Verified 03/10/23 10:13 Ileostomy metformin HCl AdvReac Nausea Verified 03/10/23 10:13 [From Glucophage] ranolazine AdvReac Nausea/Vom/ Verified 03/10/23 10:13 Diarrhea [id number] Reductase AdvReac Nausea/joints Verified 03/10/23 10:13 Inhibitor ache [[id number] Reductase Inhibitor] Family History Mother CVA (cerebral vascular accident) Diabetes Brother Heart disease of CAD at 65 Myocardial infarction Pancreatitis Father Cancer lymphomia Lymphoma Grandmother Myocardial infarction of [place] in her 70s Sister COPD (chronic obstructive pulmonary disease) Surgical History H/O colectomy H/O coronary artery bypass surgery (05/18/12) H/O sinus surgery H/O total hysterectomy history closed fissure History of History of cardiac catheterization History of cholecystectomy History of coronary artery stent placement (01/12/18) ileostomy Ileostomy status left thumb surgery Status post total hip replacement, left Social History household members: none Smoking Status: Former smoker quit date: 03/08/12 how long ago did patient quit smoking: quit in 2013; 0.5-1ppd x 30yrs alcohol intake: never substance use type: does not use diet: diabetic caffeine: No eating out: 1-3 times/week what type of physical activity do you participate in: none seatbelt use: always do you feel safe at home: Yes ROS ROS ED Constitutional Constitutional ED: Denies chills or fever(s) Eyes Eyes: Denies discharge from eye(s) ENT ENT ED: Denies discharge from eye(s), rhinorrhea or sore throat Cardiovascular Cardiovascular: Denies chest pain or palpitations Respiratory/Chest Respiratory/Chest: Denies cough or dyspnea Gastrointestinal Gastrointestinal: Reports abdominal pain, diarrhea, nausea and vomiting Genitourinary Genitourinary ED: Denies dysuria Musculoskeletal Musculoskeletal: Reports extremity pain and myalgias; Denies back pain Integumentary Denies Abrasions or rash Neurologic Neurologic: Reports weakness; Denies headache(s) Psychiatric Psychiatric: Denies anxiety or depression Allergic/Immunologic Allergic/Immunologic ED: Denies lip swelling or urticaria EXAM Physical Exam Const Vital Signs: 03/18/23 06:39 Temperature 97.0 F L Temperature Source Temporal Pulse Rate 105 H Respiratory Rate 15 Blood Pressure 155/76 H Blood Pressure Mean 102 Pulse Ox 98 Oxygen Delivery Method Room Air Positive well nourished and well developed General Appearance ED: well developed HEENT Reports dry mucous membranes Mouth ED: Yes dry mucous membranes Mouth: dry mucous membranes Eyes EOMs intact bilaterally Chest Wall inspection of chest normal and palpation of chest normal Resp normal respiratory effort and clear to auscultation bilaterally Cardio regular rhythm Rate: tachycardic GI GI Narrative: Abdomen soft with no focal tenderness to palpation. Active bowel sounds are noted. Extremity normal to inspection Neuro oriented x3 and no sensory deficits noted Motor Exam: strength 5/5 throughout Psych mental status grossly normal Skin no rashes or lesions noted MDM MDM MDM Narrative Medical decision making narrative: IV line established. Patient given IV fluids along with morphine and Reglan which has worked well for her nausea previously. She is also given a dose of Bentyl. Labwork obtained to evaluate for leukocytosis, anemia, and electrolyte derangement. History & Record Review Discussion w/independent historian: Patient and Friend Additional record(s) reviewed:: Prior inpatient record, Prior ED visit and Prior labs Lab Data Attestation: I reviewed the patient's lab results. Labs: Laboratory Results - last 24 hr 03/18/23 03/18/23 07:10 07:20 WBC 11.8 H RBC 6.21 H Hgb 16.4 H Hct 53.4 H MCV 86.0 MCH 26.4 L MCHC 30.7 L RDW Std Deviation 50.0 H RDW Coeff of Jan 17.1 H Plt Count 246 MPV 11.6 Immature Gran % (Auto) 0.500 Neut % (Auto) 82.7 H Lymph % (Auto) 11.1 L [place] % (Auto) 2.9 Eos % (Auto) 2.0 Baso % (Auto) 0.8 Absolute Neuts (auto) 9.7 H Absolute Lymphs (auto) 1.31 Nucleated RBC % 0.2 Sodium 134 L Potassium 4.7 Chloride 104 Carbon Dioxide 19.0 L Anion Gap 11 BUN 44 H Creatinine 2.48 H Estim Creat Clear Calc 26.43 Est GFR (MDRD) Af Amer 25 L Est GFR (MDRD) Non-Af 21 L BUN/Creatinine Ratio 17.7 Glucose 245 H Calcium 10.9 H Total Bilirubin 0.90 Direct Bilirubin 0.18 AST 26 ALT 23 Alkaline Phosphatase 161 H Total Protein 9.6 H Albumin 3.6 Globulin 6.0 H Lipase 43 EKG Initial EKG: Attestation: I personally reviewed and interpreted this EKG as follows: Interpretation: Sinus Tachycardia (Sinus tach at 107. LVH noted. Similar changes noted on prior study from 03/02/2023, however more pronounced on today's study. QTc is 477.) Treatment and Re-Evaluation :: CBC was a white count 11.8 with 82% neutrophils. Hemoglobin is concentrated at 16.4. It appears her baseline hemoglobin is around 11-12. Chemistry studies reveal bicarb low at 19. BUN is 44 and creatinine is 2.48. It appears baseline creatinine is around 1.7-1.9. LFTs reveal an alk phos of 161. ALT and AST are normal. Lipase is normal at 43. On repeat evaluation patient resting comfortably. She still reports some abdominal cramping but it is improving. Given that she has increased her creatinine a half a point and concentrated her hemoglobin and amount of 12 hours I do feel she be better served with observation for slow hydration today and ensure her output slows down so she can maintain hydration. I will speak with hospitalist. Discharge Plan Triage Chief Complaint: Abd Pain ED Provider: Tiffany Alexandre Dx/Rx/DC Orders Clinical Impression: RALPH (acute kidney injury), Diarrhea, Dehydration Prescriptions: No Action duloxetine 30 mg capsule,delayed release(DR/EC) 90 mg PO DAILY nitroglycerin 0.4 mg tablet, sublingual 0.4 mg sublingual Q5-15M PRN (Reason: chest pain) Qty: 25 6RF Rx Instructions: do not exceed 3 doses per episode buprenorphine 15 mcg/hour patch weekly 1 patch transdermal Q7D melatonin 5 mg tablet 5 mg PO HS lamotrigine 100 mg tablet 100 mg PO DAILY triamcinolone acetonide 0.1 % cream 1 applic topical BID PRN (Reason: rash) Qty: 453.6 1RF (DME) Handicap Placard See Rx Instructions .ROUTE .MEDSUPPLY Qty: 1 0RF Rx Instructions: As directed, length of time 3 years (DME) True Metrix Glucose Test Strip Strip See Rx Instructions .Route Qty: 100 5RF Rx Instructions: TID cyclobenzaprine 10 mg tablet 10 mg PO TID PRN (Reason: muscle spasm) Qty: 30 0RF benzonatate 200 mg capsule 200 mg PO BID PRN (Reason: cough) Qty: 30 0RF aspirin 81 mg Tablet,Delayed Release (Dr/Ec) 81 mg PO DAILY Hold Instructions: Resume on 06/10/22. (DME) True Metrix Glucose Test Strip Strip See Rx Instructions .Route Rx Instructions: 3 times per day No longer (DME) Dexcom G6 Sausage Cutter [facility] See Rx Instructions .ROUTE .MEDSUPPLY Rx Instructions: As directed (DME) pen needle, diabetic [BD Ultra-Fine Key Pen Needle] 32 gauge x 32 needle See Rx Instructions .ROUTE .MEDSUPPLY Rx Instructions: takes 5 injection/day (DME) Wheel Chair See Rx Instructions Rx Instructions: As directed loperamide [Imodium A-D] 2 mg capsule 2 mg PO Q6H PRN (Reason: loose stool) Qty: 20 0RF dicyclomine 10 mg capsule 20 mg PO DAILY metoprolol tartrate 50 mg tablet 50 mg PO .COMPLEX Rx Instructions: 50 mg orally twice a day with a 25 mg tablet twice a day to = 75 mg twice a day; diphenoxylate-atropine [Lomotil] 2.5-0.025 mg tablet 1 tab PO TID PRN (Reason: diarrhea) Qty: 90 0RF hyoscyamine sulfate 0.125 mg tablet 0.125 mg PO Q6H PRN (Reason: dyspepsia) Qty: 60 2RF (DME) ostomy supplies See Rx Instructions .Route .MEDSUPPLY Qty: 1 0RF Rx Instructions: Pouches Barrier rings Adhesive remover Skin Prep Barrier powder pantoprazole 40 mg tablet,delayed release (DR/EC) See Rx Instructions .ROUTE .COMPLEX Qty: 28 11RF Dose Instruction: TAKE 1 TABLET BY MOUTH DAILY FOR GERD Rx Instructions: TAKE 1 TABLET BY MOUTH DAILY FOR GERD metoprolol tartrate 25 mg tablet 25 mg PO .COMPLEX Qty: 180 3RF Rx Instructions: 25 mg orally take with a 50 mg tablet twice a day to = 75 mg twice a day; atorvastatin 80 mg tablet 80 mg PO QHS Qty: 90 3RF Patient Comments: cholesterol (DME) Dexcom G6 Transmitter Device See Rx Instructions .ROUTE .MEDSUPPLY Qty: 1 3RF Rx Instructions: 1 transmitter every 90 days Farxiga 10 mg tablet 10 mg PO DAILY Qty: 90 1RF isosorbide dinitrate 30 mg tablet 30 mg PO BID Qty: 60 11RF ([facility] [place]) Dexcom G6 Sensor Device See Rx Instructions .ROUTE .MEDSUPPLY Qty: 9 1RF Rx Instructions: 1 sensor every 10 days ([facility] [place]) Omnipod 5 G6 Pods (Gen 5) Cartridge See Rx Instructions .Route Qty: 45 1RF Rx Instructions: 1 pod q 48 hours (DME) Juanita Cohesive Seal 2 diameter See Rx Instructions .Route .MEDSUPPLY Qty: 15 7RF Rx Instructions: As directed ([facility] [place]) Esenta Sting Free Adhesive Remover Wipe - See Rx Instructions .Route .MEDSUPPLY Qty: 15 7RF Rx Instructions: As directed ([facility] [place]) Esenta Sting Free Skin Barrier [place], 50 mL - See Rx Instructions .Route .MEDSUPPLY Qty: 15 7RF Rx Instructions: As directed ([facility] [place]) Esteem + Convex One-Piece Drainable Pre-Cut Pouch w/ visiClose, Durahesive, 12 panel [place], 1 03/15 See Rx Instructions .Route .MEDSUPPLY Qty: 15 7RF Rx Instructions: As directed clopidogrel 75 mg tablet 75 mg PO DAILY Qty: 90 3RF Hold Instructions: Resume on 06/10/22. Rx Instructions: TAKE 1 TABLET BY MOUTH EVERY DAY pregabalin 75 mg capsule 75 mg PO BID Qty: 60 1RF ursodiol 300 mg capsule 300 mg PO BID Qty: 180 3RF ipratropium-albuterol 0.5 mg-3 mg(2.5 mg base)/3 mL solution for nebulization 3 ml inhalation 6XD PRN (Reason: shortness of breath or wheezing) Qty: 90 0RF Humalog KwikPen Insulin 200 unit/mL (3 mL) insulin pen 130 unit subcut DAILY Qty: 60 3RF Rx Instructions: 2.05 units/hr from 12 AM to 6:30 AM 2.15 units/hr from 6:30 AM to 12 AM Primary Care Provider: Mala Mcgrath Referrals: Mala Mcgrath MD [Primary Care Provider] - Disposition Disposition: Acute Care Hospital [facility]
--- OUTSIDE RECORDS SUMMARY | 2023-03-18 07:55 | XMS RPT_ITS | CCD ---
Author Name Unknown Address [address] [place] [address] Organization [facility] Care Team Providers Care Projection Camera Operator Name Role Phone GERBER, DEAN C Unavailable [...] PCP Unavailable Unavailable Oleghe, Efewongbe B Unavailable [phone] Unavailable Unavailable OLEGHE, EFEWONGBE B Primary Care Unavailable EDWIGE JOY Attending Unavailable FRIEND, JACQUELINE Zurita Referring Unavailable Allergies Allergy Classification Reported Allergen(s) Allergy Type Date of Onset Reaction(s) Facility Anticholinergics (1 source) Dicyclomine; Translations: [dicyclomine] Drug Allergy [facility] [place] [address] Work Phone: liraglutide (1 source) liraglutide; Translations: [Victoza SOPN] Drug [facility] Work Phone: metFORMIN (1 source) metFORMIN; Translations: [metformin] Drug Allergy [facility] [place] [address] Work Phone: Nitroimidazoles (antibiotic) (1 source) metroNIDAZOLE; Translations: [Flagyl] Drug Allergy [place] [address] Work Phone: Penicillins (antibiotic) (1 source) Penicillins; Translations: [Penicillins] Drug Allergy [place] [address] Work Phone: Sulfonamides (antibiotic) (1 source) Sulfonamides (Antibiotic); Translations: [Sulfa Drugs] Drug Allergy [place] [address] Work Phone: Unclassified (1 source) Cinnamon Flavor OIL; Translations: [Cinnamon Flavor OIL] Allergy to drug (finding) [place] [address] Work Phone: (2 sources) cinnamon preparation; Translations: [CINNAMON] Drug Allergy 9 [facility] Repository (2 sources) codeine; Translations: [CODEINE] Drug Allergy 9 [facility] Repository (4 sources) dicyclomine; Translations: [DICYCLOMINE] Drug Allergy 4 [facility] Repository (2 sources) influenza virus vaccine; Translations: [FLU VACC [id number] 65YR UP(PF)] Drug Allergy 6 [facility] Repository (2 sources) liraglutide; Translations: [LIRAGLUTIDE] Drug Allergy 7 [facility] Repository (2 sources) metFORMIN; Translations: [METFORMIN HCL] Drug Allergy 4 [facility] Repository (2 sources) metroNIDAZOLE; Translations: [METRONIDAZOLE HCL] Drug Allergy 4 [facility] Repository (4 sources) Penicillins; Translations: [PENICILLINS] Propensity to adverse reactions to drug (disorder) 9 [facility] Repository (2 sources) sulfaSALAzine; Translations: [SULFASALAZINE] Drug Allergy 9 [facility] Repository (2 sources) Sulfonamides (Antibiotic); Translations: [SULFA (SULFONAMIDE ANTIBIOTICS)] Propensity to adverse reactions to drug (disorder) 9 [facility] Repository (2 sources) INFLUENZA VIRUS VACCINES; Translations: [INFLUENZA VIRUS VACCINES] Propensity to adverse reactions [facility] drug (disorder) [facility] ([facility] sources) liraglutide Drug Allergy [facility] 120 Work Phone: (2 sources) metFORMIN Drug Allergy [facility] Work Phone: (2 sources) metroNIDAZOLE Drug Allergy [facility] 120 Work Phone: (2 sources) Sulfonamides (Antibiotic) Allergy to drug (finding) [facility] 120 Work Phone: (1 source) Hmg-Coa Reductase Inhibitors (Statins); Translations: [QJZDNAF-VUP-WUY REDUCTASE INHIBITORS] Propensity to adverse reactions to drug (disorder) 4 [facility] Repository (1 source) ranolazine; Translations: [RANOLAZINE] Drug Allergy 9 [facility] Repository Medications Completed/Discontinued Medications Medication Drug Class(es) [...] [Coronary atherosclerosis of unspecified type of vessel, yocha dehe or graft] Chronic Coronary atherosclerosis and other [...] / Z87.891(ICD-10) Onset: 10-21-2016 Unclassified (1 source) director long term care (current) use of aspirin / Z79.82(ICD-10) Onset: [...] (Body Mass Index) 30.54 kg/m2 Brennan Duque [facility] 120 Work Phone: 12-20-2019 11:35-0400 Body Temperature 98.2 [degF] Brennan Duque [facility] 120 Work Phone: 12-20-2019 11:35-0400 Body weight 88.45 kg Brennan Duque [facility] 120 Work Phone: 12-20-2019 11:35-0400 BP Diastolic 70 mm[Hg] [facility]ennan [facility]que [facility] 120 Work Phone: 12-20-2019 11:35-0400 BP Systolic 120 mm[Hg] Brennan Duque [facility] 120 Work Phone: 12-20-2019 11:35-0400 BSA (Body Surface Area) 2 m2 Brennan Duque [facility] 120 Work Phone: 12-20-2019 11:35-0400 Height 170.18 cm Brennan Duque [facility] 120 Work Phone: 11-30-2019 11:55-0400 BMI (Body Mass Index) 30.54 kg/m2 Brennan Duque [facility] 120 Work Phone: 11-30-2019 11:55-0400 Body weight 88.45 kg Brennan Duque [facility] 120 Work Phone: 11-30-2019 11:55-0400 BP Diastolic 60 mm[Hg] Brennan Duque [facility] 120 Work Phone: 11-30-2019 11:55-0400 BP Systolic 122 mm[Hg] Brennan Duque [facility] 120 Work Phone: 11-30-2019 11:55-0400 BSA (Body Surface Area) 2 m2 Brennan Duque [facility] 120 Work Phone: 11-30-2019 11:55-0400 Height 170.18 cm Brennan Duque [facility] 120 Work Phone: 11-30-2019 11:55-0400 Pulse (Heart Rate) 66 /min Brennan Duque [facility] 120 Work Phone: 11-30-2019 11:55-0400 Pulse Oximetry 96 % Brennan Duque [facility] 120 Work Phone: Encounters Encounter Date Encounter Type Care Provider Facility Start: 02-18-2022 End: 02-18-2022 ambulatory MALA MADRIGAL Facility:[facility] Start: 10-23-2020 Rx Renewal Mala Zurita [place] Work Phone: [facility] Work Phone: Start: 12-20-2019 Patient encounter procedure Brennan Duque [facility] [facility] Work Phone: Start: 11-30-2019 Patient encounter procedure Brennan Duque [facility] [facility] Work Phone: Start: 07-06-2017 Ambulatory DEAN May GERBER [facility] Start: 10-21-2016 End: 10-21-2016 Ambulatory Huma Ocasio [facility] Start: 10-08-2016 Ambulatory Mena Brown Fac ility:[facility] Start: 09-03-2016 Ambulatory Alireza Tavares [facility] Procedures Date Procedure Procedure Detail Performing [...] Duque Start: 11-30-2019 Smooth Muscle Antibody Screen Bernnan timmons Start: 10-21-2016 Anesth, upper gi visualize [...] Brennan Duque, Status: Pen, Time: 10:00 AM [facility] Work Phone: Payers Date Payer Category Payer Unknown [id number] Unknown [id number] Unknown Social History Date Type Detail Facility [facility] smoker [facility] Work Phone: NEGATED: Highlighted row - [facility] Work Phone: Medical Equipment [...] Type Note Facility 02-18-2022 Note HNO ID: [id number] Author: Edwige Joy RD Service: ? Author [...] in the bag) Lunch - meals of [employer]/meal delivery service, meat balls and spaghetti, chicken, [...] sand which with salami, ham, cheese sometimes (japanese, marshallese) Beverages - diet coke drinks all day [...] [Metronidazole Hcl], Fluzone High-Dose (Pf) [Flu Vacc [id number] 65yr Up(Pf)], Glucophage [Metformin Hcl], Influenza Virus Vaccines, Penicillins, Ranexa [Ranolazine], Sulfa (Sulfonamide Antibiotics), Victoza [Liraglutide], and Mrypagm-Cfc-Aij Reductase Inhibitors Medications: Current Outpatient Medications Medication [...] BY MOUTH EV (more content not included)... [facility] Summary Purpose Family History No Family [...] DATE CREATED AUTHOR AUTHOR'S ORGANIZ ATION 08/31/2017 [facility] DATE CREATED AUTHOR AUTHOR'S ORGANIZ ATION 09/01/2017 [facility] DATE CREATED AUTHOR AUTHOR'S ORGANIZ ATION 09/01/2017 [facility] DATE CREATED AUTHOR AUTHOR'S ORGANIZ ATION 06/18/2020 [employer] DATE CREATED AUTHOR AUTHOR'S ORGANIZ ATION 02/14/2021 [facility] DATE CREATED AUTHOR AUTHOR'S ORGANIZ ATION 02/25/[address] [facility] FOR RECORDS PERTAINING TO PATIENTS WHO [...] BE BASED ON THE PRIMARY CLINICAL RECORDS. [facility] [employer] [facility]. provides no warranty or guarantee of the accuracy or completeness of information in this document.
[2023-03-18] MEDS: 0.9% Normal Saline (1000mL) 1,000 ML 1000 ML IV (08:23)
--- NOTE | 2023-03-18 08:32 | PCM.HP.STD ---
HPI - General General Date of Admission: 03/18/23 Date of Service: 03/18/23 Chief Complaint: High output ileostomy, dehydration HPI Narrative ASHLEY MÉNDEZ, is a 62 F who presented to [facility] ED on 03/18/2023 with concern for higher output from her ileostomy and dehydration. Patient seen at bedside on the floor shortly after coming from the ED. Patient was sitting up comfortably in bed, conversing normally, no acute distress. Patient states that she began noticing high watery output from her ileostomy yesterday evening. Was emptying the bag every hour until this morning, when she decided to come in for further evaluation. Denied any bloody contents in the ostomy. Patient also reports a few episodes of nausea with vomiting last night as well. States she has been having some intermittent dizziness and some abdominal muscle spasms over that timeframe as well. She has had episodes like this in the past and the cramping seems consistent with dehydration for her. She denies any fevers or chills. Denies any chest pain or shortness of breath. Denies any recent sick contacts. Patient notably follows with Dr. Andino with gastroenterology, last office visit on 02/10/2023. Patient had previous diagnosis of ulcerative colitis s/p total colectomy with ileostomy placement several years ago. Has had multiple stomal revisions and relocation from right to left abdomen. She notably was hospitalized in January with a similar presentation. Per Dr. Andino, responded very well to PPI drip and octreotide drip during that admission. Goal from the 02/10 appointment was to get the patient on octreotide subcutaneous injections as well as Gattex for short bowel syndrome. Otherwise she was continued on the current management of colestipol and Lomotil therapy with strict glucose control. Patient also has known history of gastroparesis that has caused her nausea and vomiting with bile acid reflux esophagitis in the past. Dr. Andino started her on Reglan therapy 5 mg p.o. 3 times daily for this as well. Patient states she has been taking her medication as prescribed. No other acute concerns at this time. [facility], [facility] Medical History (Updated 03/18/23 @ 09:59 by Ophelia Rodriguez) Acute kidney injury Anxiety Anxiety and depression Arthritis Avascular necrosis of bone of left hip BiPAP (biphasic positive airway pressure) dependence BMI 31.0-31.9,adult CAD (coronary artery disease) Cardiology follow-up encounter Cellulitis, abdominal wall Chronic back pain Chronic diastolic (congestive) heart failure Chronic narcotic use Chronic pain Chronic respiratory failure Chronic respiratory failure with hypoxia, on home O2 therapy CKD (chronic kidney disease), stage IV Congestive heart failure (CHF) COPD (chronic obstructive pulmonary disease) COPD (chronic obstructive pulmonary disease) Depression Depression with anxiety Diabetic gastroparesis DM2 (diabetes mellitus, type 2) Elevated anti-tissue transglutaminase (tTG) IgA level Fatty liver FCHL (familial combined hyperlipidemia) Former smoker Gastric reflux Gastroparesis High output ileostomy History of CAD (coronary artery disease) History of COVID-19 Hx of diabetic gastroparesis Hyperlipidemia Hypertension Ileostomy present Insulin dependent diabetes mellitus Left shoulder pain Liver mass Loss of hearing Malaise and fatigue Menieres disease MGUS (monoclonal gammopathy of unknown significance) Migraine headache Myoclonic jerking Non-alcoholic fatty liver disease Nonalcoholic steatohepatitis Obesity Obstructive sleep apnea Psoriasis Rheumatoid arthritis Secondary pulmonary arterial hypertension Short bowel syndrome Sleep apnea Smoking greater than 20 pack years Type 2 diabetes mellitus with diabetic polyneuropathy Ulcerative colitis Vitamin B12 deficiency Vitamin D deficiency Walker as ambulation aid Wears glasses Home Medications aspirin 81 mg tablet,delayed release 81 mg PO DAILY Check with primary doctor 04/08/21 [History Last Taken 05/27/22] duloxetine 30 mg capsule,delayed release 90 mg PO DAILY Check with primary doctor 10/06/21 [History Last Taken 05/27/22] hyoscyamine sulfate 0.125 mg tablet 0.125 mg PO Q6H PRN dyspepsia #60 tabs 11/04/21 [Rx Last Taken 05/25/22] Wheel Chair 11/15/21 [History Last Taken Unknown] blood sugar diagnostic (True Metrix Glucose Test Strip) 11/15/21 [History Last Taken Unknown] blood-glucose meter,continuous (Dexcom G6 Integrated Specialist) 11/15/21 [History Last Taken Unknown] pen needle, diabetic 32 gauge x 5/32 (BD Ultra-Fine Key Pen Needle) 11/15/21 [History Last Taken Unknown] loperamide 2 mg capsule (Imodium A-D) 2 mg PO Q6H PRN loose stool #20 caps 11/18/21 [Rx Last Taken 05/14/22] nitroglycerin 0.4 mg sublingual tablet 0.4 mg sublingual Q5-15M PRN chest pain #25 tabs 11/20/21 [Rx Last Taken Unknown] ostomy supplies #1 ea 02/13/22 [Rx Last Taken Unknown] dicyclomine 10 mg capsule 20 mg PO DAILY Check with primary doctor 03/14/22 [History Last Taken 05/27/22] pantoprazole 40 mg tablet,delayed release See Rx Instructions .Route .COMPLEX #28 tabs 04/07/22 [Rx Last Taken 05/27/22] lamotrigine 100 mg tablet 200 mg PO DAILY 07/20/22 [History Last Taken Unknown] metoprolol tartrate 25 mg tablet 25 mg PO .COMPLEX bp #180 tabs 07/28/22 [Rx Last Taken Unknown] atorvastatin 80 mg tablet 80 mg PO QHS CHOLESTEROL LOWERING #90 tabs 08/04/22 [Rx Last Taken Unknown] blood-glucose transmitter (Dexcom G6 Transmitter device) #1 ea 08/07/22 [Rx Last Taken Unknown] metoprolol tartrate 50 mg tablet 50 mg PO .COMPLEX Check with primary doctor 09/02/22 [History Last Taken Unknown] Handicap Placard #1 ea 09/16/22 [Rx Last Taken Unknown] dapagliflozin propanediol 10 mg tablet (Farxiga) 10 mg PO DAILY #90 tabs 09/16/22 [Rx Last Taken Unknown] triamcinolone acetonide 0.1 % topical cream 1 applic topical BID PRN rash #453.6 grams 09/16/22 [Rx Last Taken Unknown] isosorbide dinitrate 30 mg tablet 30 mg PO BID heart #60 tabs 12/11/22 [Rx Last Taken Unknown] blood-glucose sensor (Dexcom G6 Sensor device) #9 ea 12/14/22 [Rx Last Taken Unknown] diphenoxylate-atropine 2.5 mg-0.025 mg tablet (Lomotil) 1 tab PO TID PRN diarrhea #90 tabs 01/10/23 [Rx Last Taken Unknown] insulin pump cart,automated,BT (Omnipod 5 G6 Pods (Gen 5) subcutaneous cartridge) #45 ea 01/13/23 [Rx Last Taken Unknown] Juanita Cohesive Seal 2 diameter #15 ea 01/18/23 [Rx Last Taken Unknown] Esenta Sting Free Adhesive Remover Wipe - #15 ea 01/18/23 [Rx Last Taken Unknown] Esenta Sting Free Skin Barrier Daisy, 50 mL - #15 ea 01/18/23 [Rx Last Taken Unknown] Esteem + Convex One-Piece Drainable Pre-Cut Pouch w/ visiClose, Durahesive, 12 panel Opaque, 1 03/15 #15 ea 01/18/23 [Rx Last Taken Unknown] clopidogrel 75 mg tablet 75 mg PO DAILY Check with primary doctor #90 tabs 02/04/23 [Rx Last Taken Unknown] pregabalin 75 mg capsule 75 mg PO BID pain #60 caps 02/04/23 [Rx Last Taken Unknown] ursodiol 300 mg capsule 300 mg PO BID #180 caps 02/04/23 [Rx Last Taken Unknown] blood sugar diagnostic (True Metrix Glucose Test Strip) #100 ea 02/08/23 [Rx Last Taken Unknown] buprenorphine 15 mcg/hour weekly transdermal patch 1 patch transdermal Q7D 02/10/23 [History Last Taken Unknown] melatonin 5 mg tablet 5 mg PO HS 02/10/23 [History Last Taken Unknown] cyclobenzaprine 10 mg tablet 10 mg PO TID PRN muscle spasm #30 tabs 02/24/23 [Rx Last Taken Unknown] ipratropium 0.5 mg-albuterol 3 mg (2.5 mg base)/3 mL nebulization soln 3 ml inhalation 6XD PRN shortness of breath or wheezing #90 mL 03/03/23 [Rx Last Taken Unknown] benzonatate 200 mg capsule 200 mg PO BID PRN cough #30 caps 03/10/23 [Rx Last Taken Unknown] insulin lispro 200 unit/mL (3 mL) subcutaneous pen (Humalog KwikPen U-200 Insulin) 130 unit (0.65 mL) subcut DAILY diabetes #60 mL 03/12/23 [Rx Last Taken Unknown] trazodone 50 mg tablet 50 mg PO QHS 03/18/23 [History Last Taken Unknown] Allergy/AdvReac Type Severity Reaction Status Date / Time ciprofloxacin Allergy Intermediate Swelling Verified 03/10/23 10:13 cinnamon [Cinnamon] Allergy Anaphylaxis Verified 03/10/23 10:13 Influenza Virus Vaccines Allergy Shortness Verified 03/10/23 10:13 of breath liraglutide [From Victoza] Allergy Anaphylaxis Verified 03/10/23 10:13 metformin [From Glucophage] Allergy NEEDS Verified 03/10/23 10:13 FOLLOW-UP metronidazole [From Flagyl] Allergy Hives Verified 03/10/23 10:13 Metronidazole HCl Allergy Hives Verified 03/10/23 10:13 [From Flagyl] Penicillins Allergy Hives Verified 03/10/23 10:13 Sulfa (Sulfonamide Allergy Hives Verified 03/10/23 10:13 Antibiotics) aripiprazole [From Abilify] AdvReac hallucinati Verified 03/10/23 10:13 ons codeine AdvReac Stops Verified 03/10/23 10:13 Ileostomy metformin HCl AdvReac Nausea Verified 03/10/23 10:13 [From Glucophage] ranolazine AdvReac Nausea/Vom/ Verified 03/10/23 10:13 Diarrhea Ikoitzr-XEM-LfU Reductase AdvReac Nausea/joints Verified 03/10/23 10:13 Inhibitor ache [Qshjsxj-Qei-Khr Reductase Inhibitor] Family History Mother CVA (cerebral vascular accident) Diabetes Brother Heart disease of CAD at 65 Myocardial infarction Pancreatitis Father Cancer lymphomia Lymphoma Grandmother Myocardial infarction of [place] in her 70s Sister COPD (chronic obstructive pulmonary disease) Surgical History (Updated 03/18/23 @ 09:59 by Ophelia Rodriguez) H/O colectomy H/O coronary artery bypass surgery (05/18/12) H/O sinus surgery H/O total hysterectomy history closed fissure History of appendectomy History of History of cardiac catheterization History of cholecystectomy History of coronary artery stent placement (01/12/18) History of coronary artery stent placement ileostomy Ileostomy status left thumb surgery Status post total hip replacement, left Social History household members: none Smoking Status: Former smoker quit date: 03/08/12 how long ago did patient quit smoking: quit in 2013; 0.5-1ppd x 30yrs alcohol intake: never substance use type: does not use diet: diabetic caffeine: No eating out: 1-3 times/week what type of physical activity do you participate in: none seatbelt use: always do you feel safe at home: Yes ROS Constitutional Constitutional: Denies chills, fatigue, fever(s) or weakness Eyes Eyes: Denies change in vision ENT HEENT: Denies dysphagia Cardiovascular Cardiovascular: Denies chest pain Respiratory/Chest Respiratory/Chest: Denies cough Gastrointestinal Gastrointestinal: Reports abdominal pain, diarrhea, loose stools, nausea and vomiting; Denies constipation Genitourinary Genitourinary: Denies dysuria Musculoskeletal Musculoskeletal: Denies arthralgias or back pain Vital Signs Vital Signs Vital Signs: 03/18/23 06:39 Temperature 97.0 F L Temperature Source Temporal Pulse Rate 105 H Respiratory Rate 15 Blood Pressure 155/76 H Blood Pressure Mean 102 Pulse Ox 98 Oxygen Delivery Method Room Air Weight Weight: 90.265 kg Body Mass Index (BMI) 31.1 Physical Exam Const alert, oriented x3 and no apparent distress Constitutional Narrative: Pleasant middle-aged female, obese, sitting comfortably in bed, conversing normally, no acute distress. General Appearance: cooperative and comfortable HEENT normocephalic, head/scalp atraumatic, hearing grossly normal bilaterally and nasal mucous membranes and turbinates normal Eyes PERRL, EOMs intact bilaterally and conjunctivae normal Neck full ROM, no lymphadenopathy and supple Lymph Lymphatic: no lymphadenopathy noted Chest inspection of chest normal Resp normal respiratory effort, normal air movement, no use of accessory muscles and clear to auscultation bilaterally Cardio regular rate, regular rhythm, no murmurs and peripheral pulses 2+ throughout GI GI Narrative: Left-sided ostomy noted with lightish brown watery output. Abdomen soft, nondistended, mildly tender diffusely on palpation. Mildly hyperactive bowel sounds noted. Back/Spine normal ROM Extremity normal to inspection, full ROM and no pedal edema Skin no rashes or lesions noted Neuro moves all extremities and no focal motor deficits Speech: speech normal Psych mental status grossly normal Results Lab / Micro Data 03/18/23 07:20 03/18/23 07:10 Labs: Laboratory Results - last 24 hr 03/18/23 07:10: Sodium 134 L, Potassium 4.7, Chloride 104, Carbon Dioxide 19.0 L, Anion Gap 11, BUN 44 H, Creatinine 2.48 H, Estim Creat Clear Calc 26.43, Est GFR (MDRD) Af Amer 25 L, Est GFR (MDRD) Non-Af 21 L, BUN/Creatinine Ratio 17.7, Glucose 245 H, Calcium 10.9 H, Total Bilirubin 0.90, Direct Bilirubin 0.18, AST 26, ALT 23, Alkaline Phosphatase 161 H, Total Protein 9.6 H, Albumin 3.6, Globulin 6.0 H, Lipase 43 03/18/23 07:20: WBC 11.8 H, RBC 6.21 H, Hgb 16.4 H, Hct 53.4 H, MCV 86.0, MCH 26.4 L, MCHC 30.7 L, RDW Std Deviation 50.0 H, RDW Coeff of Jan 17.1 H, Plt Count 246, MPV 11.6, Immature Gran % (Auto) 0.500, Neut % (Auto) 82.7 H, Lymph % (Auto) 11.1 L, [place] % (Auto) 2.9, Eos % (Auto) 2.0, Baso % (Auto) 0.8, Absolute Neuts (auto) 9.7 H, Absolute Lymphs (auto) 1.31, Nucleated RBC % 0.2 Assessment & Plan Assessment/Plan (1) Dehydration: (2) RALPH (acute kidney injury): (3) High output ileostomy: PLAN: Plan Patient is a 62-year-old female who presented to [facility] ED on 03/18/2023 with concern for high output ileostomy and dehydration. 1. High output ileostomy with dehydration Unclear etiology, may be secondary to gastrointestinal infection versus mild worsening of chronic issues. Similar presentation in January as noted in HPI, GI followed, improved with PPI drip and octreotide drip. Labs on admit consistent with hemoconcentration, along with mild RALPH on CKD as noted below. ? Admit under observation status to [facility]. Gastroenterology consulted. Continue maintenance IV fluids for now. Continue home Lomotil. Will start Bentyl as needed for abdominal cramping. Will hold on octreotide drip or PPI drip for now, appreciate GI recommendations. Stool PCR ordered. 2. RALPH on CKD stage IIIb Creatinine 2.48, BUN 44 on admit. Baseline creatinine 1.8-2.1. Follows with nephrology in outpatient setting. Suspect mild prerenal RALPH in setting of dehydration as noted above. ? Maintenance IV fluids ongoing as noted above. Monitor daily BMP and urine output. Chronic medical conditions: ? Type 2 diabetes mellitus: Okay to continue insulin pump while inpatient. ? History of ulcerative colitis s/p ileostomy with resultant short gut syndrome ? Hypertension: Holding home metoprolol and hydrochlorothiazide given dehydration with mild hypotension on admission, restart when able. ? CAD: Continue home aspirin, Plavix, statin. Holding home Imdur for now. ? Depression: Continue home duloxetine. ? Chronic pain syndrome: Continue home buprenorphine patch and pregabalin. Outpatient follow-up with pain management. ? GERD: Continue home PPI. DVT prophylaxis: Heparin subcu CODE STATUS: Full code, verified Expected disposition: Home, 1 to 2 days Total clinical time spent by myself addressing the patient's medical issues, reviewing all the data, and collaborating with patient's care team: 55 minutes. Charges/Coding Visit Charges Inpatient E&M: 98533 Init Hosp L2
--- NOTE | 2023-03-18 08:37 | NURSING ---
DR SEALS FOR DR RUIZ
[2023-03-18 08:48] VITALS: BP 134/77; PULSE 107; RESP 17; O2SAT 95
--- NOTE | 2023-03-18 08:53 | NURSING ---
MED SURG OBS MOSELLER DEHYDRATION, DIARRHEA, RALPH
--- OUTSIDE RECORDS SUMMARY | 2023-03-18 09:17 | XMS RPT_ITS | CCD ---
Author Name Unknown Address [address] [place] [address] Organization [facility] Care Team Providers Care Professional Athlete Name Role Phone GERBER, DEAN C Unavailable [...] PCP Unavailable Unavailable Oleghe, Efewongbe B Unavailable [phone] Unavailable Unavailable OLEGHE, EFEWONGBE B Primary Care Unavailable EDWIGE JOY Attending Unavailable FRIEND, JACQUELINE Zurita Referring Unavailable Allergies Allergy Classification Reported Allergen(s) Allergy Type Date of Onset Reaction(s) Facility Anticholinergics (1 source) Dicyclomine; Translations: [dicyclomine] Drug Allergy [facility] [address] Work Phone: liraglutide (1 source) liraglutide; Translations: [Victoza SOPN] [facility] Work Phone: metFORMIN (1 source) metFORMIN; Translations: [metformin] Drug Allergy [facility] [place] [address] Work Phone: Nitroimidazoles (antibiotic) (1 source) metroNIDAZOLE; Translations: [Flagyl] Drug Allergy [place] [address] Work Phone: Penicillins (antibiotic) (1 source) Penicillins; Translations: [Penicillins] Drug Allergy [place] [address] Work Phone: Sulfonamides (antibiotic) (1 source) Sulfonamides (Antibiotic); Translations: [Sulfa Drugs] Drug Allergy [place] [address] Work Phone: Unclassified (1 source) Cinnamon Flavor OIL; Translations: [Cinnamon Flavor OIL] Allergy to drug (finding) [place] [address] Work Phone: (2 sources) cinnamon preparation; Translations: [CINNAMON] Drug Allergy 9 [facility] Repository (2 sources) codeine; Translations: [CODEINE] Drug Allergy 9 [facility] Repository (4 sources) dicyclomine; Translations: [DICYCLOMINE] Drug Allergy 4 [facility] Repository (2 sources) influenza virus vaccine; Translations: [FLU VACC [id number] 65YR UP(PF)] Drug Allergy 6 [facility] Repository (2 sources) liraglutide; Translations: [LIRAGLUTIDE] Drug Allergy 7 [facility] Repository (2 sources) metFORMIN; Translations: [METFORMIN HCL] Drug Allergy 4 [facility] Repository (2 sources) metroNIDAZOLE; Translations: [METRONIDAZOLE HCL] Drug Allergy 4 [facility] Repository (4 sources) Penicillins; Translations: [PENICILLINS] Propensity to adverse reactions to drug (disorder) 9 [facility] Repository (2 sources) sulfaSALAzine; Translations: [SULFASALAZINE] Drug Allergy 9 [facility] Repository (2 sources) Sulfonamides (Antibiotic); Translations: [SULFA (SULFONAMIDE ANTIBIOTICS)] Propensity to adverse reactions to drug (disorder) 9 [facility] Repository (2 sources) INFLUENZA VIRUS VACCINES; Translations: [INFLUENZA VIRUS VACCINES] Propensity to adverse reactions [facility] drug [facility]disorder) [facility] liraglutide Drug Allergy [facility] 120 Work Phone: (2 sources) metFORMIN Drug [facility] Work Phone: (2 sources) metroNIDAZOLE Drug Allergy [facility] 120 Work Phone: (2 sources) Sulfonamides (Antibiotic) Allergy to drug (finding) [facility] 120 Work Phone: (1 source) Hmg-Coa Reductase Inhibitors (Statins); Translations: [GNSBMFI-FUN-WCE REDUCTASE INHIBITORS] Propensity to adverse reactions to drug (disorder) 4 [facility] Repository (1 source) ranolazine; Translations: [RANOLAZINE] Drug Allergy 9 [facility] Repository Medications Completed/Discontinued Medications Medication Drug [...] [Coronary atherosclerosis of unspecified type of vessel, [place] or graft] Chronic Coronary atherosclerosis and other [...] / Z87.891(ICD-10) Onset: 10-21-2016 Unclassified (1 source) 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 / Z79.82(ICD-10) Onset: [...] (Body Mass Index) 30.54 kg/m2 Brennan Duque [facility] 120 Work Phone: 12-20-2019 11:35-0400 Body Temperature 98.2 [degF] Brennan Duque [facility] 120 Work Phone: 12-20-2019 11:35-0400 Body weight 88.45 kg Brennan Duque [facility] Work Phone: 12-20-2019 11:35-0400 BP Diastolic 70 mm[Hg] [facility] Work Phone: 12-20-2019 11:35-0400 BP Systolic 120 mm[Hg] Brennan Duque [facility] 120 Work Phone: 12-20-2019 11:35-0400 BSA (Body Surface Area) 2 m2 Brennan Duque [facility] 120 Work Phone: 12-20-2019 11:35-0400 Height 170.18 cm Brennan Duque [facility] Work Phone: 11-30-2019 11:55-0400 BMI (Body Mass Index) 30.54 kg/m2 Brennan Duque [facility] 120 Work Phone: 11-30-2019 11:55-0400 Body weight 88.45 kg Brennan Duque [facility] 120 Work Phone: 11-30-2019 11:55-0400 BP Diastolic 60 mm[Hg] Brennan Duque [facility] 120 Work Phone: 11-30-2019 11:55-0400 BP Systolic 122 mm[Hg] Brennan Duque [facility] 120 Work Phone: 11-30-2019 11:55-0400 BSA (Body Surface Area) 2 m2 Brennan Duque [facility] 120 Work Phone: 11-30-2019 11:55-0400 Height 170.18 cm Brennan Duque [facility] Work Phone: 11-30-2019 11:55-0400 Pulse (Heart Rate) 66 /min Brennan Duque [facility] 120 Work Phone: 11-30-2019 11:55-0400 Pulse Oximetry 96 % Brennan Duque [facility] Work Phone: Encounters Encounter Date Encounter Type Care Provider Facility Start: 02-18-2022 End: 02-18-2022 ambulatory MALA MADRIGAL Facility:[facility] Start: 10-23-2020 Rx Renewal Mala Zurita [place] Work Phone: [facility] Work Phone: Start: 12-20-2019 Patient encounter procedure Brennan Duque [facility] Work Phone: Start: 11-30-2019 Patient encounter procedure Brennan Duque [facility] Work Phone: Start: 07-06-2017 Ambulatory DEAN May GERBER [facility] Start: 10-21-2016 End: 10-21-2016 Ambulatory Huma Ocasio [facility] Start: 10-08-2016 Ambulatory Mena Brown Fac ility:[facility] Start: 09-03-2016 Ambulatory Alireza Tavares [facility] Procedures Date Procedure Procedure Detail Performing [...] Cholecystectomy Brennan Duque History of CABG Brennan Dquue History of Cardiac C ath Procedure Outcome: Brennan Duque History of Ileostomy Brennan christensen Plan of Treatment Date Care Activity Detail Author Start: 12-16-2020 FUV, Provider: Brennan Duque, Status: Pen, Time: 10:00 AM FUV, Provider: Brennan Duque, Status: Pen, Time: 10:00 AM [facility] Work Phone: Payers Date Payer Category Payer Unknown [id number] Unknown [id number] Unknown Social History Date Type Detail Facility Former smoker [facility] Work Phone: NEGATED: Highlighted row - - [facility] 120 Work Phone: Medical Equipment Procedure Code [...] Type Note Facility 02-18-2022 Note HNO ID: [id number] Author: Edwige Joy RD Service: ? Author [...] in the bag) Lunch - meals of [employer]/meal delivery service, meat balls and spaghetti, chicken, [...] sand which with salami, ham, cheese sometimes (omani, honduran) Beverages - diet coke drinks all day [...] [Metronidazole Hcl], Fluzone High-Dose (Pf) [Flu Vacc [id number] 65yr Up(Pf)], Glucophage [Metformin Hcl], Influenza Virus Vaccines, Penicillins, Ranexa [Ranolazine], Sulfa (Sulfonamide Antibiotics), Victoza [Liraglutide], and Ksamqza-Cpn-Rhh Reductase Inhibitors Medications: Current Outpatient Medications Medication [...] BY MOUTH EV (more content not included)... [facility] Summary Purpose Family History No Family History [...] DATE CREATED AUTHOR AUTHOR'S ORGANIZ ATION 08/31/2017 [facility] DATE CREATED AUTHOR AUTHOR'S ORGANIZ ATION 09/01/2017 [facility] DATE CREATED AUTHOR AUTHOR'S ORGANIZ ATION 09/01/2017 [facility] DATE CREATED AUTHOR AUTHOR'S ORGANIZ ATION 06/18/2020 [employer] DATE CREATED AUTHOR AUTHOR'S ORGANIZ ATION 02/14/2021 [facility] DATE CREATED AUTHOR AUTHOR'S ORGANIZ ATION 02/25/[address] [facility] FOR RECORDS PERTAINING TO PATIENTS WHO ARE [...] BE BASED ON THE PRIMARY CLINICAL RECORDS. [facility] [employer] [facility] provides no warranty or guarantee of the accuracy or completeness of information in this document.
[2023-03-18 09:34] VITALS: BMI 30.6
[2023-03-18 10:00] VITALS: BP 137/85; PULSE 109; RESP 16; TEMP 36.5; O2SAT 98
[2023-03-18] MEDS: 0.9% Saline Lock 10 ML Syringe IV (10:49)
[2023-03-18] MEDS: Lactated Ringers 1,000 ML 150 ML IV ×2 (10:49→17:58)
[2023-03-18] MEDS: Heparin Injection (Vial) 5,000 UNIT/ML VIAL 5000 UNIT SC (10:50)
[2023-03-18] MEDS: Pantoprazole Sodium 40 MG Tablet PO (10:51)
[2023-03-18] MEDS: Pregabalin 75 MG Capsule PO ×2 (10:51→21:31)
[2023-03-18] MEDS: DULoxetine Hcl 30 MG Capsule 90 MG PO (10:51)
[2023-03-18] MEDS: Clopidogrel Bisulfate 75 MG Tablet PO (10:51)
[2023-03-18] MEDS: Acetaminophen 325 MG Tablet 650 MG PO ×2 (10:51→21:31)
[2023-03-18] MEDS: cycloBENZAPRine HCl 10 MG Tablet PO ×2 (10:52→21:30)
[2023-03-18] MEDS: lamoTRIgine 100 MG Tablet PO (11:03)
[2023-03-18] MEDS: Loperamide 2 MG Capsule PO (11:03)
[2023-03-18] MEDS: Isosorbide DN 30 MG Tablet PO (11:03)
[2023-03-18 14:00] VITALS: BP 126/67; PULSE 122; RESP 17; TEMP 36.6; O2SAT 96
[2023-03-18] MEDS: Lactated Ringers 1,000 ML 125 ML IV (21:21)
[2023-03-18] MEDS: Benzonatate 100 MG Capsule 200 MG PO (21:30)
[2023-03-18] MEDS: MELATONIN 10 MG TABLET 5 MG PO (21:31)
[2023-03-18] MEDS: Ondansetron 4 MG/2 ML Vial IV (21:34)
[2023-03-18 22:00] VITALS: BP 118/77; PULSE 70; RESP 18; TEMP 37.3; O2SAT 93
--- NOTE | 2023-03-18 23:00 | NURSING ---
pt states blood sugar is 217
[2023-03-19 03:00] VITALS: BP 121/73; PULSE 106; RESP 16; TEMP 36.6; O2SAT 94
[2023-03-19] MEDS: Lactated Ringers 1,000 ML 125 ML IV (03:03)
[2023-03-19] MEDS: Dicyclomine 10 MG Capsule PO ×2 (03:03→19:57)
[2023-03-19] MEDS: Diphenoxylate/Atrop 1 Tablet PO (03:03)
[2023-03-19] MEDS: Acetaminophen 325 MG Tablet 650 MG PO (03:04)
[2023-03-19 05:26] LABS: Hematocrit 39.8 % (37-47); Hemoglobin 12.8 g/dL (12.0-15.0); Mean Corp Hgb Conc 32.2 g/dL (32-36); Mean Corpuscular Hgb 27.6 pg (27.0-32.0); Mean Corpuscular Volume 85.8 fL (81-99); Mean Platelet Vol. 11.2 fl (6.2-12.0); Platelet Count 181 K/mm3 (150-450); RBC Distribution Width CV 16.8 % (11.6-14.6); RBC Distribution Width SD 50.5 fl (35.1-43.9); Red Blood Count 4.64 M/mm3 (4.2-5.4); White Blood Count 10.1 K/mm3 (4.4-11.0)
[2023-03-19 06:09] LABS: Anion Gap 3 (5-15); BUN 47 mg/dL (7-18); BUN/Creat Ratio 16.7 RATIO (10-20); Calcium,Total 8.8 mg/dL (8.5-10.1); Chloride 112 mmol/L (98-107); Creatinine, Serum 2.82 mg/dL (0.55-1.02); EST Glomerular Filtration Rate 18 mL/min (>60); Est Glom Filt Rate - Afr Amer 22 mL/min (>60); Estimated Creatinine Clearance 23.05 ml/min; Glucose 119 mg/dL (74-106); Sodium Level 137 mmol/L (136-145)
[2023-03-19] MEDS: cycloBENZAPRine HCl 10 MG Tablet PO (06:27)
[2023-03-19 06:56] LABS: Bedside Glucose 119 mg/dL (74-106)
[2023-03-19 07:35] LABS: Mucous, Urine 0 SEEN /hpf (<or=2+)
[2023-03-19] MEDS: lamoTRIgine 100 MG Tablet PO (07:38)
[2023-03-19] MEDS: Aspirin E.C. 81 MG Tablet PO (07:38)
[2023-03-19] MEDS: Pantoprazole Sodium 40 MG Tablet PO (07:38)
[2023-03-19] MEDS: DULoxetine Hcl 30 MG Capsule 90 MG PO (07:38)
[2023-03-19] MEDS: Ursodiol 250 MG Tablet PO ×2 (07:38→19:48)
[2023-03-19] MEDS: Clopidogrel Bisulfate 75 MG Tablet PO (07:38)
[2023-03-19] MEDS: Heparin Injection (Vial) 5,000 UNIT/ML VIAL 5000 UNIT SC ×2 (07:38→19:47)
[2023-03-19] MEDS: Pregabalin 75 MG Capsule PO ×2 (07:44→19:47)
[2023-03-19 07:47] VITALS: BP 112/60; PULSE 105; RESP 15; TEMP 36.6; O2SAT 93
[2023-03-19 07:53] LABS: Color, Urine Yellow (Yellow); Glucose, Dipstick Normal (Normal); Ketone-Dipstick 5 mg/dl (Negative); Leukocyte Esterase-Dipstick 25 /ul (Negative); Nitrite-Dipstick Negative (Negative); Occult Blood-Urine 10 /ul (Negative); Protein-Dipstick 100 mg/dl (Negative); Specific Gravity, Urine 1.025 (1.002-1.030); Urine Bilirubin Dipstick 1 mg/dL (Negative); Urine Clarity Sl. Cloudy (Clear); Urine Urobilinogen 1 mg/dl (Normal)
[2023-03-19 08:06] LABS: Bacteria 2+ /hpf (None Seen); Fine Granular Cast- Urine 0-5 SEEN /lpf (0-5); Red Blood Cells-Urine 0-5 SEEN /hpf (0-5); Squamous Epithelial Cells - UA 5-10 SEEN /hpf (5-10); White Blood Cells 0-5 SEEN /hpf (0-5)
[2023-03-19 09:03] LABS: Erythrocyte Sedimentation Rate 62 mm/hr (0-30)
[2023-03-19 09:11] LABS: Urine Sodium < 5 mmol/L (Not Establ.)
[2023-03-19] MEDS: Lactated Ringers 1,000 ML 75 ML IV ×2 (10:29→22:30)
[2023-03-19 10:40] LABS: Magnesium 1.7 mg/dL (1.6-2.6); Phosphorus 4.6 mg/dL (2.5-4.9)
--- NOTE | 2023-03-19 12:14 | CASEMGMT ---
Met with patient to complete BECKFORD form. BECKFORD form explained to? ? ?who voiced understanding and signed form. Original form placed in pt?s chart and copy provided to?patient. Tari Samuels, Discharge Planning Asst
[2023-03-19 14:00] VITALS: BP 111/60; PULSE 117; RESP 14; TEMP 36.6; O2SAT 93
--- NOTE | 2023-03-19 16:40 | PN.HOSP_ITS ---
Reason for Visit Reason for Visit: Diagnoses Dehydration (03/19/23) Acute kidney failure, unspecified (03/19/23) Other specified symptoms and signs involving the digestive system and abdomen (03/19/23) Ileostomy status (03/19/23) Subjective Subjective Patient seen at bedside this morning, girlfriend present. Patient sitting up in bed, no acute distress. Patient does appear fairly fatigued today, similar to yesterday. States that she does feel somewhat improved after IV fluids yesterday, does not feel as dehydrated. States her ostomy output has seemed to slow down moderately. States her abdominal cramps have been fairly well-controlled. Her primary concern currently is that she feels very tired, almost to the point where she feels like she is having mild hallucinations. Per patient's girlfriend, states she has had issues during previous hospitalizations with apparent hospital delirium, that typically improves on discharge. Of note, girlfriend states that patient's mentation is much better currently than on previous admissions. No other acute concerns currently. Objective Data Objective Data Vital Signs: Vital Signs Temp Pulse Resp BP Pulse Ox O2 Del Method 97.8 F 117 H 14 111/60 93 Room Air 03/19/23 14:00 03/19/23 14:00 03/19/23 14:00 03/19/23 14:00 03/19/23 14:00 03/19/23 14:00 Oxygen Delivery Method Room Air Weight: 88.706 kg Body Mass Index (BMI) 30.6 Intake & Output: Intake and Output for Last 24 Hours 03/17/23 03/18/23 03/19/23 23:59 23:59 23:59 Intake Total 3000 / 3000 2639.17 / 2639.17 Output Total 450 / 450 Balance 2550 / 2550 2639.17 / 2639.17 Lab / Micro Data 03/19/23 05:18 03/19/23 05:18 Labs: Laboratory Results - last 24 hr 03/19/23 05:18: WBC 10.1, RBC 4.64, Hgb 12.8, Hct 39.8, MCV 85.8, MCH 27.6, MCHC 32.2, RDW Std Deviation 50.5 H, RDW Coeff of Jan 16.8 H, Plt Count 181, MPV 11.2, ESR 62 H, Sodium 137, Potassium 4.0, Chloride 112 H, Carbon Dioxide 22.0, Anion Gap 3 L, BUN 47 H, Creatinine 2.82 H, Estim Creat Clear Calc 23.05, Est GFR (MDRD) Af Amer 22 L, Est GFR (MDRD) Non-Af 18 L, BUN/Creatinine Ratio 16.7, Glucose 119 H, Calcium 8.8, Phosphorus 4.6, Magnesium 1.7, C-React Prot Ext Range 109.00 H 03/19/23 06:33: POC Glucose 119 H 03/19/23 06:45: Urine Color Yellow, Urine Clarity Sl. Cloudy, Urine pH 5.0, Ur Specific [place] 1.025, Urine Protein 100 H, Urine Glucose (UA) Normal, Urine Ketones 5 H, Urine Occult Blood 10 H, Urine Nitrite Negative, Urine Bilirubin 1 H, Urine Urobilinogen 1 H, Ur Leukocyte Esterase 25 H, Urine RBC 0-5 SEEN, Urine WBC 0-5 SEEN, Ur Squamous Epith Cells 5-10 SEEN, Urine Bacteria 2+, Fine Granular Casts 0-5 SEEN, Urine Mucus 0 SEEN, Ur Random Sodium < 5, Urine Creatinine 418.00 Micro: Microbiology 03/18/23 15:08 Stool Enteric Bacteriology - Final 03/18/23 15:08 Stool Clostridioides difficile (PCR) - Final Physical Exam Const alert, oriented x3 and no apparent distress Constitutional Narrative: Pleasant middle-aged female, obese, moderately fatigued appearing, sitting up in bed, conversing normally, no acute distress. General Appearance: cooperative and comfortable HEENT normocephalic, head/scalp atraumatic, hearing grossly normal bilaterally and nasal mucous membranes and turbinates normal Eyes PERRL, EOMs intact bilaterally and conjunctivae normal Neck full ROM, no lymphadenopathy and supple Lymph Lymphatic: no lymphadenopathy noted Chest inspection of chest normal Resp normal respiratory effort, normal air movement, no use of accessory muscles and clear to auscultation bilaterally Cardio regular rate, regular rhythm, no murmurs and peripheral pulses 2+ throughout GI GI Narrative: Left-sided ostomy noted with lightish brown watery output. Abdomen soft, nondistended, mildly tender diffusely on palpation, similar to on day of admission. Back/Spine normal ROM Extremity normal to inspection, full ROM and no pedal edema Skin no rashes or lesions noted Neuro moves all extremities and no focal motor deficits Speech: speech normal Assessment & Plan Assessment/Plan (1) Dehydration: (2) RALPH (acute kidney injury): (3) High output ileostomy: PLAN: Plan Patient is a 62-year-old female who presented to [facility] ED on 03/18/2023 with concern for high output ileostomy and dehydration. 1. High output ileostomy with dehydration, improving Unclear etiology, may be secondary to gastrointestinal infection versus mild worsening of chronic issues. Similar presentation in January as noted in HPI, GI followed, improved with PPI drip and octreotide drip. Labs on admit consi stent with hemoconcentration, along with mild RALPH on CKD as noted below. Stool PCR and C. difficile negative. ? Gastroenterology consulted. Continue maintenance IV fluids for now, can likely discontinue tomorrow. Encouraged p.o. intake. Continue home Lomotil. Continue Bentyl as needed for abdominal cramping. Holding on octreotide drip or PPI drip at this time. 2. RALPH on CKD stage IIIb Creatinine 2.48, BUN 44 on admit. Baseline creatinine 1.8-2.1. Follows with nephrology in outpatient setting. Suspect mild prerenal RALPH in setting of dehydration as noted above. ? Creatinine mildly up trended to 2.82 on 03/19, BUN 47. Urine sodium less than 10, FeNa 0.1% consistent with prerenal etiology. Continue IV fluids as noted above. Monitor daily BMP and output. Chronic medical conditions: ? Type 2 diabetes mellitus: Okay to continue insulin pump while inpatient. ? History of ulcerative colitis s/p ileostomy with resultant short gut syndrome ? Hypertension: Holding home metoprolol and hydrochlorothiazide given dehydration with mild hypotension on admission, restart when able. ? CAD: Continue home aspirin, Plavix, statin. Holding home Imdur for now. ? Depression: Continue home duloxetine. ? Chronic pain syndrome: Continue home buprenorphine patch and pregabalin. Outpatient follow-up with pain management. ? GERD: Continue home PPI. DVT prophylaxis: Heparin subcu CODE STATUS: Full code, verified Expected disposition: Home, 1 to 2 days Total clinical time spent by myself addressing the patient's medical issues, reviewing all the data, and collaborating with patient's care team: 35 minutes. Charges/Coding Visit Charges Inpatient E&M: 45608 Subs Hosp L2
[2023-03-19] MEDS: Atorvastatin Calcium 80 MG Tablet PO (19:47)
[2023-03-19] MEDS: MELATONIN 10 MG TABLET 5 MG PO (19:48)
[2023-03-19 20:09] VITALS: BP 122/62; PULSE 115; RESP 16; TEMP 36.6; O2SAT 93
[2023-03-20] MEDS: Benzonatate 100 MG Capsule 200 MG PO (02:58)
[2023-03-20 03:03] VITALS: BP 115/64; PULSE 108; RESP 16; TEMP 36.3; O2SAT 95
[2023-03-20 07:52] VITALS: O2SAT 94
[2023-03-20 09:05] VITALS: BP 121/60; PULSE 97; RESP 18; TEMP 36.7; O2SAT 95
[2023-03-20] MEDS: Buprenorphine 15 MCG PATCH.TDWK 1 PATCH TD (10:43)
[2023-03-20] MEDS: Aspirin E.C. 81 MG Tablet PO (10:44)
[2023-03-20] MEDS: DULoxetine Hcl 30 MG Capsule 90 MG PO (10:44)
[2023-03-20] MEDS: Heparin Injection (Vial) 5,000 UNIT/ML VIAL 5000 UNIT SC ×2 (10:44→22:33)
[2023-03-20] MEDS: Ursodiol 250 MG Tablet PO ×2 (10:45→22:36)
[2023-03-20] MEDS: Pantoprazole Sodium 40 MG Tablet PO (10:45)
[2023-03-20] MEDS: Clopidogrel Bisulfate 75 MG Tablet PO (10:45)
[2023-03-20] MEDS: lamoTRIgine 100 MG Tablet PO (10:45)
[2023-03-20] MEDS: Pregabalin 75 MG Capsule PO ×2 (10:53→22:35)
--- NOTE | 2023-03-20 11:25 | CASEMGMT ---
SVETLANA RAINEY Assessment: Face to Face with pt for initial transition planning/care coordination assessment. RN REDD introduced self and role at [facility], pt voices understanding and consents to assessment. Pt is A&O x4 and answers all questions appropriately at this time. Pt lying in bed in no distress. Care providers, pharmacy, and demographics verified/updated. Admitting Dx: high ileostomy output, dehydration PCP:Alcides Specialists:Jacky, nephro; Adriana, pain mgmt; , endo; Friend, GI; Keven, pulm Preferred Pharmacy: [place] Insurance: [employer] [facility]; [facility] Prescription Benefit: yes LNOK: Azucena Borrero, life partner Living Arrangements: Pt lives alone in a ground level apt with no steps to enter in an apt building. Pt reports she is I in ADL's and denies concerns at home. Transportation: Pt drives self and denies concerns with transportation. DME:Pt has insulin pump with pods that she states she has sufficient supply of pods for. Pt also has a CGM on her arm that she showed this RN REDD, reports she has supplies for this as well. Pt has been getting her ostomy supplies through [employer] and [employer] but reports most recently has contacted companies and received free trials as she wants to see which ostomy she likes better. Pt is indep in ordering and changing her ostomy. Pt has a cane, rollator, regular w/c and transport w/c, shower chair and grab bars in the bathroom. HHC/SNF: [facility] HHC in the past. Most recently pt qualified for an aide through [employer] through the [employer] program but pt states she had too many medical appts and cancelled this for now until she is at home more. Pt has been to [facility]. Pt states no concerns with going home at time of dc. Last 6 clicks= 22, no therapy ordered. Pt denies need for this. She states she has been through all of this before and does not want therapy. She feels she will be fine to dc home. She is aware to notify the RN CM or her nurse should she change her mind. Dr. Andino arrived to room as RN REDD leaving. Pt states no further concerns/needs. CM to follow. Advised pt to ask CM if any further question/concerns/needs arise, voices understanding. Pt Goal: Home Plan: Home
--- NOTE | 2023-03-20 11:28 | NURSING ---
wasted old butrans patch in med waste jug w/ RN Mariella
--- NOTE | 2023-03-20 11:53 | CON.PCM.GI_ITS ---
HPI Consult Data Date of Consult: 03/20/23 HPI Narrative Reason for Consultation: Nausea vomiting and diarrhea HPI Narrative: ASHLEY MÉNDEZ, is a 62 F who presents with worsening abdominal pain followed by cramping, nausea, vomiting and diarrhea. She has a history of diabetic gastroparesis, type 2 diabetes, monoclonal gammopathy, ileostomy due to ulcerative colitis and atherosclerotic heart disease who presents with nausea and vomiting started a few days ago. She has a history of multiple admissions for high output ileostomy. She is having high output from her ileostomy.? She also has been having abdominal discomfort nausea vomiting and high output ostomy. She has a history of ulcerative colitis had toxic megacolon and had a ileostomy placed. She generally has relatively high output but she states she only has to change her bag about twice a day. She does go in once every 2 weeks for IV fluids to maintain hydration. There was no signs of infection as a cause to her high output ileostomy. She has had problems when her gastroparesis acts up she gets high output ostomy and has had problems with acute kidney injury. She feels like that is what is happening. About 24 hours ago she started with nausea vomiting abdominal cramping and what she describes as water in her ostomy and she has changed the bag as frequently as every 15 minutes. She was not urinating now which is not typical for her. She feels overall weak. She is not having chest pain or trouble breathing. She is not having fevers or chills. No blood has been seen in the ostomy output. I have been giving her IV fluids every 2 weeks. However she says that she thinks that her volume from her ileostomy is getting worse. She typically has about 2 or 3 episodes of high output ileostomy requiring her to come into the hospital for IV fluids every year. [facility] Medical History (Updated 03/18/23 @ 09:59 by Ophelia Rodriguez) Acute kidney injury Anxiety Anxiety and depression Arthritis Avascular necrosis of bone of left hip BiPAP (biphasic positive airway pressure) dependence BMI 31.0-31.9,adult CAD (coronary artery disease) Cardiology follow-up encounter Cellulitis, abdominal wall Chronic back pain Chronic diastolic (congestive) heart failure Chronic narcotic use Chronic pain Chronic respiratory failure Chronic respiratory failure with hypoxia, on home O2 therapy CKD (chronic kidney disease), stage IV Congestive heart failure (CHF) COPD (chronic obstructive pulmonary disease) COPD (chronic obstructive pulmonary disease) Depression Depression with anxiety Diabetic gastroparesis DM2 (diabetes mellitus, type 2) Elevated anti-tissue transglutaminase (tTG) IgA level Fatty liver FCHL (familial combined hyperlipidemia) Former smoker Gastric reflux Gastroparesis High output ileostomy History of CAD (coronary artery disease) History of COVID-19 Hx of diabetic gastroparesis Hyperlipidemia Hypertension Ileostomy present Insulin dependent diabetes mellitus Left shoulder pain Liver mass Loss of hearing Malaise and fatigue Menieres disease MGUS (monoclonal gammopathy of unknown significance) Migraine headache Myoclonic jerking Non-alcoholic fatty liver disease Nonalcoholic steatohepatitis Obesity Obstructive sleep apnea Psoriasis Rheumatoid arthritis Secondary pulmonary arterial hypertension Short bowel syndrome Sleep apnea Smoking greater than 20 pack years Type 2 diabetes mellitus with diabetic polyneuropathy Ulcerative colitis Vitamin B12 deficiency Vitamin D deficiency Walker as ambulation aid Wears glasses Home Medications aspirin 81 mg tablet,delayed release 81 mg PO DAILY Check with primary doctor 04/08/21 [History Last Taken 05/27/22] duloxetine 30 mg capsule,delayed release 90 mg PO DAILY Check with primary d octor 10/06/21 [History Last Taken 05/27/22] hyoscyamine sulfate 0.125 mg tablet 0.125 mg PO Q6H PRN dyspepsia #60 tabs 11/04/21 [Rx Last Taken 05/25/22] Wheel Chair 11/15/21 [History Last Taken Unknown] blood sugar diagnostic (True Metrix Glucose Test Strip) 11/15/21 [History Last Taken Unknown] blood-glucose meter,continuous (Dexcom G6 Brim Pouncer Machine Operator) 11/15/21 [History Last Taken Unknown] pen needle, diabetic 32 gauge x 5/32 (BD Ultra-Fine Key Pen Needle) 11/15/21 [History Last Taken Unknown] loperamide 2 mg capsule (Imodium A-D) 2 mg PO Q6H PRN loose stool #20 caps 11/18/21 [Rx Last Taken 05/14/22] nitroglycerin 0.4 mg sublingual tablet 0.4 mg sublingual Q5-15M PRN chest pain #25 tabs 11/20/21 [Rx Last Taken Unknown] ostomy supplies #1 ea 02/13/22 [Rx Last Taken Unknown] dicyclomine 10 mg capsule 20 mg PO DAILY Check with primary doctor 03/14/22 [History Last Taken 05/27/22] pantoprazole 40 mg tablet,delayed release See Rx Instructions .Route .COMPLEX #28 tabs 04/07/22 [Rx Last Taken 05/27/22] lamotrigine 100 mg tablet 200 mg PO DAILY 07/20/22 [History Last Taken Unknown] metoprolol tartrate 25 mg tablet 25 mg PO .COMPLEX bp #180 tabs 07/28/22 [Rx Last Taken Unknown] atorvastatin 80 mg tablet 80 mg PO QHS CHOLESTEROL LOWERING #90 tabs 08/04/22 [Rx Last Taken Unknown] blood-glucose transmitter (Dexcom G6 Transmitter device) #1 ea 08/07/22 [Rx Last Taken Unknown] metoprolol tartrate 50 mg tablet 50 mg PO .COMPLEX Check with primary doctor 09/02/22 [History Last Taken Unknown] Handicap Placard #1 ea 09/16/22 [Rx Last Taken Unknown] dapagliflozin propanediol 10 mg tablet (Farxiga) 10 mg PO DAILY #90 tabs 09/16/22 [Rx Last Taken Unknown] triamcinolone acetonide 0.1 % topical cream 1 applic topical BID PRN rash #453.6 grams 09/16/22 [Rx Last Taken Unknown] isosorbide dinitrate 30 mg tablet 30 mg PO BID heart #60 tabs 12/11/22 [Rx Last Taken Unknown] blood-glucose sensor (Dexcom G6 Sensor device) #9 ea 12/14/22 [Rx Last Taken Unknown] diphenoxylate-atropine 2.5 mg-0.025 mg tablet (Lomotil) 1 tab PO TID PRN diarrhea #90 tabs 01/10/23 [Rx Last Taken Unknown] insulin pump cart,automated,BT (Omnipod 5 G6 Pods (Gen 5) subcutaneous cartridge) #45 ea 01/13/23 [Rx Last Taken Unknown] Juanita Cohesive Seal 2 diameter #15 ea 01/18/23 [Rx Last Taken Unknown] Esenta Sting Free Adhesive Remover Wipe - #15 ea 01/18/23 [Rx Last Taken Unknown] Esenta Sting Free Skin Barrier [place], 50 mL - #15 ea 01/18/23 [Rx Last Taken Unknown] Esteem + Convex One-Piece Drainable Pre-Cut Pouch w/ visiClose, Durahesive, 12 panel [place], 1 03/15 #15 ea 01/18/23 [Rx Last Taken Unknown] clopidogrel 75 mg tablet 75 mg PO DAILY Check with primary doctor #90 tabs 02/04/23 [Rx Last Taken Unknown] pregabalin 75 mg capsule 75 mg PO BID pain #60 caps 02/04/23 [Rx Last Taken Unknown] ursodiol 300 mg capsule 300 mg PO BID #180 caps 02/04/23 [Rx Last Taken Unknown] blood sugar diagnostic (True Metrix Glucose Test Strip) #100 ea 02/08/23 [Rx Last Taken Unknown] buprenorphine 15 mcg/hour weekly transdermal patch 1 patch transdermal Q7D 02/10/23 [History Last Taken Unknown] melatonin 5 mg tablet 5 mg PO HS 02/10/23 [History Last Taken Unknown] cyclobenzaprine 10 mg tablet 10 mg PO TID PRN muscle spasm #30 tabs 02/24/23 [Rx Last Taken Unknown] ipratropium 0.5 mg-albuterol 3 mg (2.5 mg base)/3 mL nebulization soln 3 ml inhalation 6XD PRN shortness of breath or wheezing #90 mL 03/03/23 [Rx Last Taken Unknown] benzonatate 200 mg capsule 200 mg PO BID PRN cough #30 caps 03/10/23 [Rx Last Taken Unknown] insulin lispro 200 unit/mL (3 mL) subcutaneous pen (Humalog KwikPen U-200 Insulin) 130 unit (0.65 mL) subcut DAILY diabetes #60 mL 03/12/23 [Rx Last Taken Unknown] trazodone 50 mg tablet 50 mg PO QHS 03/18/23 [History Last Taken Unknown] Allergy/AdvReac Type Severity Reaction Status Date / Time ciprofloxacin Allergy Intermediate Swelling Verified 03/10/23 10:13 cinnamon [Cinnamon] Allergy Anaphylaxis Verified 03/10/23 10:13 Influenza Virus Vaccines Allergy Shortness Verified 03/10/23 10:13 of breath liraglutide [From Victoza] Allergy Anaphylaxis Verified 03/10/23 10:13 metformin [From Glucophage] Allergy NEEDS Verified 03/10/23 10:13 FOLLOW-UP metronidazole [From Flagyl] Allergy Hives Verified 03/10/23 10:13 Metronidazole HCl Allergy Hives Verified 03/10/23 10:13 [From Flagyl] Penicillins Allergy Hives Verified 03/10/23 10:13 Sulfa (Sulfonamide Allergy Hives Verified 03/10/23 10:13 Antibiotics) aripiprazole [From Abilify] AdvReac hallucinati Verified 03/10/23 10:13 ons codeine AdvReac Stops Verified 03/10/23 10:13 Ileostomy metformin HCl AdvReac Nausea Verified 03/10/23 10:13 [From Glucophage] ranolazine AdvReac Nausea/Vom/ Verified 03/10/23 10:13 Diarrhea Fpurucq-GJI-DgQ Reductase AdvReac Nausea/joints Verified 03/10/23 10:13 Inhibitor ache [Raybnci-Dmu-Tsx Reductase Inhibitor] Family History Mother CVA (cerebral vascular accident) Diabetes Brother Heart disease of CAD at 65 Myocardial infarction Pancreatitis Father Cancer lymphomia Lymphoma Grandmother Myocardial infarction of [place] in her 70s Sister COPD (chronic obstructive pulmonary disease) Surgical History (Updated 03/18/23 @ 09:59 by Ophelia Rodriguez) H/O colectomy H/O coronary artery bypass surgery (05/18/12) H/O sinus surgery H/O total hysterectomy history closed fissure History of appendectomy History of History of cardiac catheterization History of cholecystectomy History of coronary artery stent placement (01/12/18) History of coronary artery stent placement ileostomy Ileostomy status left thumb surgery Status post total hip replacement, left Social History household members: none Smoking Status: Former smoker quit date: 03/08/12 how long ago did patient quit smoking: quit in 2012; 0.5-1ppd x 30yrs alcohol intake: never substance use type: does not use diet: diabetic caffeine: No eating out: 1-3 times/week what type of physical activity do you participate in: none seatbelt use: always do you feel safe at home: Yes ROS Constitutional Constitutional: Denies chills, fatigue, fever(s) or weakness Eyes Eyes: Denies change in vision ENT HEENT: Denies dysphagia Cardiovascular Cardiovascular: Denies chest pain Respiratory/Chest Respiratory/Chest: Denies cough Gastrointestinal Gastrointestinal: Reports abdominal pain, diarrhea, loose stools, nausea and v omiting; Denies constipation Genitourinary Genitourinary: Denies dysuria Musculoskeletal Musculoskeletal: Denies arthralgias or back pain Physical Exam Const alert, oriented x3 and no apparent distress Constitutional Narrative: Pleasant General Appearance: cooperative and comfortable HEENT normocephalic, head/scalp atraumatic, hearing grossly normal bilaterally and nasal mucous membranes and turbinates normal Eyes PERRL, EOMs intact bilaterally and conjunctivae normal Neck full ROM, no lymphadenopathy and supple Lymph Lymphatic: no lymphadenopathy noted Chest inspection of chest normal Resp normal respiratory effort, normal air movement, no use of accessory muscles and clear to auscultation bilaterally Cardio regular rate, regular rhythm, no murmurs and peripheral pulses 2+ throughout GI GI Narrative: Left-sided ostomy noted with lightish brown watery output. Abdomen soft, nondistended, mildly tender diffusely on palpation, similar to on day of admission. Back/Spine normal ROM Extremity normal to inspection, full ROM and no pedal edema Skin no rashes or lesions noted Neuro moves all extremities and no focal motor deficits Speech: speech normal Lab / Micro Data 03/19/23 05:18 03/19/23 05:18 Micro: Microbiology 03/19/23 18:12 Stool Stool Lactoferrin - Final 03/18/23 15:08 Stool Enteric Bacteriology - Final Assessment & Plan Assessment/Plan (1) High output ileostomy: PLAN: She has a history of ulcerative colitis , status post total proctocolectomy with J-pouch , proximal diversion with loop ileostomy with 270cm small bowel remaining, presented in following 5 days of high output from his ileostomy. She cannot keep up with the volume losses as an outpatient. She said that she was emptying her ileostomy bag every hour of at least 150 cc of fl uid. She says that the big issue she is having now is cramping that is causing her to have more output. I do not know what caused this recent episode of high output ileostomy. She is having almost no fluid come from her ileostomy. She does have elements of short gut syndrome and we tried to get her Gattex and octreotide. However it was not approved by insurance. Therefore we manage that part with Imodium as needed, PPI drip, octreotide drip , cholestyramine BID, oxycodone PRN. I will put her on octreotide drip and PPI drip while she is in the hospital and increase IV fluids up to 250 cc an hour. She is responding very well to conservative measures as per nursing. She only had her Ostomy bag emptied 1 time in the last 8 hours. There is no sign infection in her stool so far. I am suspect she has exacerbation of short gut syndrome. Hopefully can be resolved without the use of octreotide. (2) Acute kidney injury superimposed on CKD: Charges/Coding Visit Charges Inpatient E&M: 66173 Init Hosp L3
[2023-03-20] MEDS: Octreotide 0.5 MG in Dextrose 5%-Water (250mL Bag) 249 ML 25 MG CONT INF ×2 (12:06→22:06)
[2023-03-20] MEDS: Insulin Lispro 100 UNIT/ML INSULN.PEN SC (12:06)
[2023-03-20] MEDS: Pantoprazole Sodium 80 MG in 0.9% Normal Saline (100mL Bag) 80 ML 10 MG CONT INF ×2 (12:07→22:07)
[2023-03-20 13:41] LABS: Erythrocyte Sedimentation Rate 50 mm/hr (0-30)
[2023-03-20] MEDS: Cholestyramine/Sucrose 4 GM/PACKET PO (14:45)
[2023-03-20 15:47] VITALS: BP 130/64; PULSE 90; RESP 18; TEMP 36.9; O2SAT 96
--- NOTE | 2023-03-20 19:53 | PCM.PN.HOSP ---
Reason for Visit Reason for Visit: Diagnoses Dehydration (03/19/23) Acute kidney failure, unspecified (03/19/23) Chronic kidney disease, unspecified (03/19/23) Other specified symptoms and signs involving the digestive system and abdomen (03/19/23) Ileostomy status (03/19/23) Subjective Subjective Patient was seen and examined today, gastroenterology saw the patient and added additional medications to her regimen. Labs were not obtained today, they will be repeated tomorrow Objective Data Objective Data Vital Signs: Vital Signs Temp Pulse Resp BP Pulse Ox O2 Del Method 98.4 F 90 18 130/64 H 96 Room Air 03/20/23 15:47 03/20/23 15:47 03/20/23 15:47 03/20/23 15:47 03/20/23 15:47 03/20/23 15:47 Oxygen Delivery Method Room Air Weight: 88.706 kg Body Mass Index (BMI) 30.6 Intake & Output: Intake and Output for Last 24 Hours 03/18/23 03/19/23 03/20/23 23:59 23:59 23:59 Intake Total 3000 / 3000 3540.42 / 3540.42 1805 / 1805 Output Total 450 / 450 275 / 275 400 / 400 Balance 2550 / 2550 3265.42 / 3265.42 1405 / 1405 Lab / Micro Data 03/19/23 05:18 03/19/23 05:18 Labs: Laboratory Results - last 24 hr 03/20/23 13:20: ESR 50 H, C-React Prot Ext Range 57.20 H Micro: Microbiology 03/19/23 18:12 Stool Stool Lactoferrin - Final 03/18/23 15:08 Stool Enteric Bacteriology - Final 03/18/23 15:08 Stool Clostridioides difficile (PCR) - Final Physical Exam Const alert, oriented x3, no apparent distress and healthy appearing General Appearance: cooperative, well kempt and well developed Orientation / Consciousness: awake, oriented to person, oriented to place and oriented to time HEENT normocephalic and moist oral mucous membranes Eyes PERRL, EOMs intact bilaterally and conjunctivae normal Neck supple, no JVD, thyroid normal and no carotid bruits General: trachea midline Resp normal respiratory effort and clear to auscultation bilaterally Auscultation: Negative for rales, rhonchi or wheezes Cardio regular rate, regular rhythm, no murmurs, no rub and no gallops GI normal to inspection, nondistended, normoactive bowel sounds, soft to palpation, non-tender and non-distended GI Narrative: Ileostomy is present Extremity no clubbing, cyanosis or edema Skin no rashes or lesions noted General Skin Exam: no breakdown Neuro oriented x3, CN's II-XII intact bilaterally, no focal motor deficits and no sensory deficits noted Sensorium / Orientation: awake and alert Speech: speech normal Psych affect normal Assessment & Plan Assessment/Plan (1) Dehydration: PLAN: Plan 1. Acute kidney injury on a backdrop of chronic kidney disease stage IIIb from high output ileostomy-gastroenterology is participating in her care, they have adjusted her medications and placed her on IV fluid #2 acute kidney disease stage IIIb secondary to type 2 diabetes-labs will be monitored #3 type 2 diabetes-patient is currently on an insulin pump, blood sugars will be monitored #4 coronary artery disease-patient remains on aspirin Plavix and a statin, her Imdur is being held at this time Total clinical time spent by myself addressing patient's medical issues, reviewing all of her data, and collaborating with patient's care team: 35 minutes Charges/Coding Visit Charges Inpatient E&M: 73655 Subs Hosp L2
[2023-03-20] MEDS: Dicyclomine 10 MG Capsule PO (20:10)
[2023-03-20 22:03] VITALS: BP 176/77; PULSE 113; RESP 18; TEMP 36.7; O2SAT 97
--- NOTE | 2023-03-20 22:15 | NURSING ---
pt's blood sugar is 171 via own device. pt refused to be checked with our machine.
[2023-03-20 22:32] VITALS: BP 169/76; PULSE 98
[2023-03-20] MEDS: MELATONIN 10 MG TABLET 5 MG PO (22:35)
[2023-03-20] MEDS: Atorvastatin Calcium 80 MG Tablet PO (22:36)
[2023-03-21 04:16] VITALS: BP 165/65; PULSE 101; RESP 18; TEMP 36.9; O2SAT 95
[2023-03-21] MEDS: Pantoprazole Sodium 80 MG in 0.9% Normal Saline (100mL Bag) 80 ML 10 MG CONT INF ×2 (08:14→20:09)
[2023-03-21] MEDS: Octreotide 0.5 MG in Dextrose 5%-Water (250mL Bag) 249 ML 25 MG CONT INF ×2 (08:14→18:40)
[2023-03-21] MEDS: Cholestyramine/Sucrose 4 GM/PACKET PO ×2 (08:14→17:21)
[2023-03-21 10:09] LABS: Anion Gap 8 (5-15); BUN 24 mg/dL (7-18); BUN/Creat Ratio 13.1 RATIO (10-20); Calcium,Total 9.1 mg/dL (8.5-10.1); Chloride 114 mmol/L (98-107); Creatinine, Serum 1.83 mg/dL (0.55-1.02); EST Glomerular Filtration Rate 30 mL/min (>60); Est Glom Filt Rate - Afr Amer 36 mL/min (>60); Estimated Creatinine Clearance 35.52 ml/min; Glucose 108 mg/dL (74-106); Potassium 4.3 mmol/L (3.5-5.1); Sodium Level 141 mmol/L (136-145)
[2023-03-21 10:15] VITALS: BP 149/90; PULSE 90; RESP 18; TEMP 36.7; O2SAT 95
[2023-03-21] MEDS: DULoxetine Hcl 30 MG Capsule 90 MG PO (10:39)
[2023-03-21] MEDS: Clopidogrel Bisulfate 75 MG Tablet PO (10:39)
[2023-03-21] MEDS: Heparin Injection (Vial) 5,000 UNIT/ML VIAL 5000 UNIT SC ×2 (10:39→22:50)
[2023-03-21] MEDS: lamoTRIgine 100 MG Tablet PO (10:40)
[2023-03-21] MEDS: Ursodiol 250 MG Tablet PO ×2 (10:40→22:51)
[2023-03-21] MEDS: cycloBENZAPRine HCl 10 MG Tablet PO (10:43)
[2023-03-21] MEDS: Acetaminophen 325 MG Tablet 650 MG PO (10:43)
[2023-03-21] MEDS: Pregabalin 75 MG Capsule PO ×2 (10:43→22:51)
[2023-03-21] MEDS: Aspirin E.C. 81 MG Tablet PO (13:04)
[2023-03-21] MEDS: Miconazole Nitrate 43 GM Bottle 1 APPLIC TOPICAL ×2 (17:20→22:53)
--- NOTE | 2023-03-21 18:50 | PN.HOSP_ITS ---
Reason for Visit Reason for Visit: Diagnoses Dehydration (03/19/23) Acute kidney failure, unspecified (03/19/23) Chronic kidney disease, unspecified (03/19/23) Other specified symptoms and signs involving the digestive system and abdomen (03/19/23) Ileostomy status (03/19/23) Subjective Subjective Patient was seen and examined today, she states that she has not had excessive output in her ileostomy bag. Patient remains on octreotide drip and Protonix drip at this time. Patient's creatinine was improved today at 1.83. Objective Data Objective Data Vital Signs: Vital Signs Temp Pulse Resp BP Pulse Ox O2 Del Method 98.1 F 90 18 149/90 H 95 Room Air 03/21/23 10:15 03/21/23 10:15 03/21/23 10:15 03/21/23 10:15 03/21/23 10:15 03/21/23 10:15 Oxygen Delivery Method Room Air Weight: 88.706 kg Body Mass Index (BMI) 30.6 Intake & Output: Intake and Output for Last 24 Hours 03/19/23 03/20/23 03/21/23 23:59 23:59 23:59 Intake Total 3540.42 / 3540.42 3355 / 3355 1210 / 1210 Output Total 275 / 275 400 / 400 Balance 3265.42 / 3265.42 2955 / 2955 1210 / 1210 Lab / Micro Data 03/19/23 05:18 03/22/23 06:10 Labs: Laboratory Results - last 24 hr 03/21/23 06:08: Sodium 141, Potassium 4.3, Chloride 114 H, Carbon Dioxide 19.0 L , Anion Gap 8, BUN 24 H, Creatinine 1.83 H, Estim Creat Clear Calc 35.52, Est GFR (MDRD) Af Amer 36 L, Est GFR (MDRD) Non-Af 30 L, BUN/Creatinine Ratio 13.1, Glucose 108 H, Calcium 9.1 Micro: Microbiology 03/19/23 18:12 Stool Stool Lactoferrin - Final 03/18/23 15:08 Stool Enteric Bacteriology - Final 03/18/23 15:08 Stool Clostridioides difficile (PCR) - Final Physical Exam Narrative alert, oriented x3, no apparent distress and healthy appearing General Appearance: cooperative, well kempt and well developed Orientation / Consciousness: awake, oriented to person, oriented to place and oriented to time HEENT normocephalic and moist oral mucous membranes Eyes PERRL, EOMs intact bilaterally and conjunctivae normal Neck supple, no JVD, thyroid normal and no carotid bruits General: trachea midline Resp normal respiratory effort and clear to auscultation bilaterally Auscultation: Negative for rales, rhonchi or wheezes Cardio regular rate, regular rhythm, no murmurs, no rub and no gallops GI normal to inspection, nondistended, normoactive bowel sounds, soft to palpation, non-tender and non-distended GI Narrative: Ileostomy is present Extremity no clubbing, cyanosis or edema Skin no rashes or lesions noted General Skin Exam: no breakdown Neuro oriented x3, CN's II-XII intact bilaterally, no focal motor deficits and no sensory deficits noted Sensorium / Orientation: awake and alert Speech: speech normal Psych affect normal Assessment & Plan Assessment/Plan (1) Diarrhea: (2) Dehydration: PLAN: Plan 1. Acute kidney injury on a backdrop of chronic kidney disease stage IIIb from high output ileostomy-gastroenterology is participating in her care, they have adjusted her medications and placed her on IV Octreotide and Protonix #2 acute kidney disease stage IIIb secondary to type 2 diabetes-labs will be monitored #3 type 2 diabetes-patient is currently on an insulin pump, blood sugars will be monitored #4 coronary artery disease-patient remains on aspirin Plavix and a statin, her Imdur is being held at this time Total clinical time spent by myself addressing patient's medical issues, reviewing all of her data, and collaborating with patient's care team: 35 minutes Charges/Coding Visit Charges Inpatient E&M: 28022 Subs Hosp L2
[2023-03-21 20:08] VITALS: BP 174/81; PULSE 103; RESP 18; TEMP 36.8; O2SAT 96
[2023-03-21 22:33] VITALS: BP 183/85; PULSE 102
[2023-03-21] MEDS: Atorvastatin Calcium 80 MG Tablet PO (22:51)
[2023-03-21] MEDS: MELATONIN 10 MG TABLET 5 MG PO (22:52)
[2023-03-21 23:18] VITALS: BP 183/85; PULSE 102
[2023-03-21] MEDS: Metoprolol Tartrate 50 MG Tablet 75 MG PO (23:18)
[2023-03-22] VITALS (8 sets, daily range): BP systolic 156–186; BP diastolic 61–81; PULSE 62–102; RESP 18; TEMP 36.5–37.1; O2SAT 95–97
[2023-03-22] MEDS: 0.9% Saline Lock 10 ML Syringe IV (00:15)
[2023-03-22] MEDS: hydrALAZINE 20 MG/ML Vial 10 MG IV (00:15)
[2023-03-22] MEDS: Insulin Lispro 100 UNIT/ML INSULN.PEN SC ×4 (00:20→15:28)
[2023-03-22 00:42] LABS: Bedside Glucose 294 mg/dL (74-106)
[2023-03-22] MEDS: Octreotide 0.5 MG in Dextrose 5%-Water (250mL Bag) 249 ML 25 MG CONT INF ×2 (04:16→15:22)
[2023-03-22] MEDS: Pantoprazole Sodium 80 MG in 0.9% Normal Saline (100mL Bag) 80 ML 10 MG CONT INF ×2 (06:27→15:24)
[2023-03-22] MEDS: Cholestyramine/Sucrose 4 GM/PACKET PO (06:36)
[2023-03-22 07:01] LABS: Bedside Glucose 241 mg/dL (74-106)
[2023-03-22 07:03] LABS: Anion Gap 8 (5-15); BUN 22 mg/dL (7-18); BUN/Creat Ratio 12.1 RATIO (10-20); Calcium,Total 9.1 mg/dL (8.5-10.1); Chloride 110 mmol/L (98-107); Creatinine, Serum 1.82 mg/dL (0.55-1.02); EST Glomerular Filtration Rate 30 mL/min (>60); Est Glom Filt Rate - Afr Amer 36 mL/min (>60); Estimated Creatinine Clearance 35.71 ml/min; Glucose 254 mg/dL (74-106); Potassium 4.7 mmol/L (3.5-5.1); Sodium Level 139 mmol/L (136-145)
[2023-03-22] MEDS: Pregabalin 75 MG Capsule PO (08:56)
[2023-03-22] MEDS: Heparin Injection (Vial) 5,000 UNIT/ML VIAL 5000 UNIT SC (08:56)
[2023-03-22] MEDS: Clopidogrel Bisulfate 75 MG Tablet PO (08:57)
[2023-03-22] MEDS: DULoxetine Hcl 30 MG Capsule 90 MG PO (08:57)
[2023-03-22] MEDS: lamoTRIgine 100 MG Tablet PO (08:57)
[2023-03-22] MEDS: Miconazole Nitrate 43 GM Bottle 1 APPLIC TOPICAL (08:57)
[2023-03-22] MEDS: Ursodiol 250 MG Tablet PO (08:57)
[2023-03-22] MEDS: Aspirin E.C. 81 MG Tablet PO (08:57)
[2023-03-22] MEDS: Metoprolol Tartrate 50 MG Tablet 75 MG PO (09:03)
--- NOTE | 2023-03-22 10:13 | WOUNDNOTE ---
In to check with patient to see if she had any further ostomy needs. pt states stool is much thicker now. patient did mention that she had been getting her ostomy supplies through [facility] and states they stopped taking [facility]. pt states she is now getting supplies through [facility]. [facility] is not able to get all the supplies she had been using. This nurse called [facility] to see of they contract with [facility] and they do. Gave pt the information that [facility] states they need. pt very appreciative and states she will call them when she gets home. pt aware to call for further needs.
--- NOTE | 2023-03-22 11:52 | NURSING ---
Patient has a buprenorphine patch on right deltoid 15mcg.
[2023-03-22 12:10] LABS: Bedside Glucose 331 mg/dL (74-106)
[2023-03-22 15:57] LABS: Bedside Glucose 222 mg/dL (74-106)
--- NOTE | 2023-03-22 16:23 | PN.GI_ITS ---
Subjective Subjective Patient's output is down to 500 mL. She denies significant improvement with octreotide and PPI drips. She rates her pain at a 3 out of 10. We discussed a high output ileostomy diarrhea beginning only approximately 1800 kcal for her because the more she eats and the more fluid she will produce through her ileostomy. Objective Data Objective Data Vital Signs: Vital Signs Temp Pulse Resp BP Pulse Ox O2 Del Method 98.2 F 62 18 162/61 H 95 Room Air 03/22/23 15:35 03/22/23 15:35 03/22/23 15:35 03/22/23 15:35 03/22/23 15:35 03/22/23 15:35 Oxygen Delivery Method Room Air Weight: 195 lb 9 oz Body Mass Index (BMI) 30.6 Intake & Output: Intake and Output for Last 24 Hours 03/20/23 03/21/23 03/22/23 23:59 23:59 23:59 Intake Total 3355 / 3355 1610 / 1610 879.5 / 879.5 Output Total 400 / 400 Balance 2955 / 2955 1610 / 1610 879.5 / 879.5 Lab / Micro Data 03/19/23 05:18 03/22/23 06:10 Labs: Laboratory Results - last 24 hr 03/22/23 00:20: POC Glucose 294 H 03/22/23 06:10: Sodium 139, Potassium 4.7, Chloride 110 H, Carbon Dioxide 21.0, Anion Gap 8, BUN 22 H, Creatinine 1.82 H, Estim Creat Clear Calc 35.71, Est GFR (MDRD) Af Amer 36 L, Est GFR (MDRD) Non-Af 30 L, BUN/Creatinine Ratio 12.1, Glucose 254 H, Calcium 9.1 03/22/23 06:34: POC Glucose 241 H 03/22/23 11:48: POC Glucose 331 H 03/22/23 15:27: POC Glucose 222 H Micro: Microbiology 03/19/23 18:12 Stool Stool Lactoferrin - Final 03/18/23 15:08 Stool Enteric Bacteriology - Final 03/18/23 15:08 Stool Clostridioides difficile (PCR) - Final Physical Exam Const alert, oriented x3, no apparent distress and healthy appearing General Appearance: cooperative, well kempt and well developed Orientation / Consciousness: awake, oriented to person, oriented to place and or iented to time HEENT normocephalic and moist oral mucous membranes Eyes PERRL, EOMs intact bilaterally and conjunctivae normal Neck supple, no JVD, thyroid normal and no carotid bruits General: trachea midline Resp normal respiratory effort and clear to auscultation bilaterally Auscultation: Negative for rales, rhonchi or wheezes Cardio regular rate, regular rhythm, no murmurs, no rub and no gallops GI normal to inspection, nondistended, normoactive bowel sounds, soft to palpation, non-tender and non-distended GI Narrative: Ileostomy is present Extremity no clubbing, cyanosis or edema Skin no rashes or lesions noted General Skin Exam: no breakdown Neuro oriented x3, CN's II-XII intact bilaterally, no focal motor deficits and no sensory deficits noted Sensorium / Orientation: awake and alert Speech: speech normal Psych affect normal Assessment & Plan Assessment/Plan (1) High output ileostomy: PLAN: She has a history of ulcerative colitis , status post total proctocolectomy with J-pouch , proximal diversion with loop ileostomy with 270cm small bowel remaining, presented in following 5 days of high output from his ileostomy. She cannot keep up with the volume losses as an outpatient. She said that she was emptying her ileostomy bag every hour of at least 150 cc of fluid. She says that the big issue she is having now is cramping that is causing her to have more output. I do not know what caused this recent episode of high output ileostomy. She is having almost no fluid come from her ileostomy. She does have elements of short gut syndrome and we tried to get her Gattex and octreotide. However it was not approved by insurance. Therefore we manage that part with Imodium as needed, PPI drip, octreotide drip , cholestyramine BID, oxycodone PRN. I will put her on octreotide drip and PPI drip while she is in the hospital and increase IV fluids up to 250 cc an hour. She is responding very well to conservative measures as per nursing. She only had her Ostomy bag emptied 1 time in the last 8 hours. There is no sign infection in her stool so far. I am suspect she has exacerbation of short gut syndrome. Hopefully can be resolved without the use of octreotide. 03/22-patient is doing very well from a GI standpoint. I do not think she needs octreotide or PPI drip as an outpatient. I would recommend Protonix 40 mg p.o. twice daily, Lomotil 1 tab 3 times daily, cholestyramine 4 g daily. (2) Acute kidney injury superimposed on CKD: Charges/Coding Visit Charges Inpatient E&M: 06216 Subs Hosp L3
--- NOTE | 2023-03-22 17:37 | PCM.DC ---
Discharge Instructions Diet Discharge Diet: 1800 Calorie Control Diet Activity Discharge Activity: Return to Normal Activity Weight Bearing Status: Full weight bearing Follow Up Care Test Results: Test results from this visit will be discussed in further detail at your follow-up appointment, if applicable. Discharge Plan Admission Admit Date/Time: 03/19/23 12:44 Primary Reason for Your Visit: Acute kidney injury Attending Provider: Roberto Brewster Primary Care Provider: Mala Mcgrath Consulting Providers: Sina,Aj; Kristopher Booker Discharge Orders/Prescriptions Prescriptions: New cholestyramine (with sugar) 4 gram Powder In Packet 4 g PO BIDAC Qty: 60 0RF pantoprazole [Protonix] 40 mg tablet,delayed release (DR/EC) 40 mg PO BID Qty: 60 0RF Continued duloxetine 30 mg capsule,delayed release(DR/EC) 90 mg PO DAILY nitroglycerin 0.4 mg tablet, sublingual 0.4 mg sublingual Q5-15M PRN (Reason: chest pain) Qty: 25 6RF Rx Instructions: do not exceed 3 doses per episode buprenorphine 15 mcg/hour patch weekly 1 patch transdermal Q7D Patient Comments: changes on wednesday melatonin 5 mg tablet 5 mg PO HS lamotrigine 100 mg tablet 200 mg PO DAILY triamcinolone acetonide 0.1 % cream 1 applic topical BID PRN (Reason: rash) Qty: 453.6 1RF (DME) Handicap Placard See Rx Instructions .ROUTE .MEDSUPPLY Qty: 1 0RF Rx Instructions: As directed, length of time 3 years (DME) True Metrix Glucose Test Strip Strip See Rx Instructions .Route Qty: 100 5RF Rx Instructions: TID cyclobenzaprine 10 mg tablet 10 mg PO TID PRN (Reason: muscle spasm) Qty: 30 0RF benzonatate 200 mg capsule 200 mg PO BID PRN (Reason: cough) Qty: 30 0RF aspirin 81 mg Tablet,Delayed Release (Dr/Ec) 81 mg PO DAILY Hold Instructions: Resume on 06/10/22. (DME) True Metrix Glucose Test Strip Strip See Rx Instructions .Route Rx Instructions: 3 times per day No longer (DME) Dexcom G6 Document Examiner Misc See Rx Instructions .ROUTE .MEDSUPPLY Rx Instructions: As directed (DME) pen needle, diabetic [BD Ultra-Fine Key Pen Needle] 32 gauge x 5/32 needle See Rx Instructions .ROUTE .MEDSUPPLY Rx Instructions: takes 5 injection/day (DME) Wheel Chair See Rx Instructions Rx Instructions: As directed loperamide [Imodium A-D] 2 mg capsule 2 mg PO Q6H PRN (Reason: loose stool) Qty: 20 0RF dicyclomine 10 mg capsule 20 mg PO DAILY metoprolol tartrate 50 mg tablet 50 mg PO .COMPLEX Rx Instructions: 50 mg orally twice a day with a 25 mg tablet twice a day to = 75 mg twice a day; trazodone 50 mg tablet 50 mg PO QHS hyoscyamine sulfate 0.125 mg tablet 0.125 mg PO Q6H PRN (Reason: dyspepsia) Qty: 60 2RF (DME) ostomy supplies See Rx Instructions .Route .MEDSUPPLY Qty: 1 0RF Rx Instructions: Pouches Barrier rings Adhesive remover Skin Prep Barrier powder metoprolol tartrate 25 mg tablet 25 mg PO .COMPLEX Qty: 180 3RF Rx Instructions: 25 mg orally take with a 50 mg tablet twice a day to = 75 mg twice a day; atorvastatin 80 mg tablet 80 mg PO QHS Qty: 90 3RF Patient Comments: cholesterol (DME) Dexcom G6 Transmitter Device See Rx Instructions .ROUTE .MEDSUPPLY Qty: 1 3RF Rx Instructions: 1 transmitter every 90 days Farxiga 10 mg tablet 10 mg PO DAILY Qty: 90 1RF isosorbide dinitrate 30 mg tablet 30 mg PO BID Qty: 60 11RF (DME) Dexcom G6 Sensor Device See Rx Instructions .ROUTE .MEDSUPPLY Qty: 9 1RF Rx Instructions: 1 sensor every 10 days (DME) Omnipod 5 G6 Pods (Gen 5) Cartridge See Rx Instructions .Route Qty: 45 1RF Rx Instructions: 1 pod q 48 hours (DME) Juanita Cohesive Seal 2 diameter See Rx Instructions .Route .MEDSUPPLY Qty: 15 7RF Rx Instructions: As directed (DME) Esenta Sting Free Adhesive Remover Wipe - See Rx Instructions .Route .MEDSUPPLY Qty: 15 7RF Rx Instructions: As directed (DME) Esenta Sting Free Skin Barrier [place], 50 mL - See Rx Instructions .Route .MEDSUPPLY Qty: 15 7RF Rx Instructions: As directed (DME) Esteem + Convex One-Piece Drainable Pre-Cut Pouch w/ visiClose, Durahesive, 12 panel [place], 1 03/15 See Rx Instructions .Route .MEDSUPPLY Qty: 15 7RF Rx Instructions: As directed clopidogrel 75 mg tablet 75 mg PO DAILY Qty: 90 3RF Hold Instructions: Resume on 06/10/22. Rx Instructions: TAKE 1 TABLET BY MOUTH EVERY DAY pregabalin 75 mg capsule 75 mg PO BID Qty: 60 1RF ursodiol 300 mg capsule 300 mg PO BID Qty: 180 3RF ipratropium-albuterol 0.5 mg-3 mg(2.5 mg base)/3 mL solution for nebulization 3 ml inhalation 6XD PRN (Reason: shortness of breath or wheezing) Qty: 90 0RF Humalog KwikPen Insulin 200 unit/mL (3 mL) insulin pen 130 unit subcut DAILY Qty: 60 3RF Rx Instructions: 2.05 units/hr from 12 AM to 6:30 AM 2.15 units/hr from 6:30 AM to 12 AM Changed diphenoxylate-atropine [Lomotil] 2.5-0.025 mg tablet 1 tab PO TID Qty: 90 0RF Discontinued pantoprazole 40 mg tablet,delayed release (DR/EC) See Rx Instructions .ROUTE .COMPLEX Qty: 28 11RF Dose Instruction: TAKE 1 TABLET BY MOUTH DAILY FOR GERD Rx Instructions: TAKE 1 TABLET BY MOUTH DAILY FOR GERD Referrals / Follow Up: Mala Mcgrath MD [Primary Care Provider] - Aj Andino DO [Med Staff - Active Staff] - See Referral Note (in two weeks) Disposition Disposition (needs filled in before D/C Order can be placed): Home, Self Care
--- NOTE | 2023-03-22 17:56 | DS.PCM_ITS ---
Providers Date of Admission: 03/19/23 Date of Discharge: 03/22/23 Primary Care Physician: Dr. Mlaa Mcgrath MD Consultations 03/18/23 19:02 Consult: Gastroenterology Routine Consulting Provider: SinaAj Reason for Consult: High output ileostomy EMERGENT Consult: No MD Notified: Yes Date Notified: 03/18/23 Time Notified: 19:03 Method of Notification: Text 03/19/23 04:28 Consult: Onc/Wound/construction safety consultant Routine Comment: Reason for Consult:: ileostomy Reason For Visit: HIGH ILEOSTOMY OUTPUT, DEHYDRATION Diagnosis Discharge Diagnosis (1) Diarrhea: Status: Acute Code(s): R19.7 - Diarrhea, unspecified (2) Dehydration: Status: Acute Code(s): E86.0 - Dehydration Plan 1. Acute kidney injury on a backdrop of chronic kidney disease stage IIIb from high output ileostomy-gastroenterology is participating in her care, they have adjusted her medications and placed her on IV Octreotide and Protonix #2 acute kidney disease stage IIIb secondary to type 2 diabetes-labs will be monitored #3 type 2 diabetes-patient is currently on an insulin pump, blood sugars will be monitored #4 coronary artery disease-patient remains on aspirin Plavix and a statin, her Imdur is being held at this time Total clinical time spent by myself addressing patient's medical issues, reviewing all of her data, and collaborating with patient's care team: 35 minutes Medications at Discharge Home Medications aspirin 81 mg tablet,delayed release 81 mg PO DAILY Check with primary doctor 04/08/21 duloxetine 30 mg capsule,delayed release 90 mg PO DAILY Check with primary doctor 10/06/21 hyoscyamine sulfate 0.125 mg tablet 0.125 mg PO Q6H PRN dyspepsia #60 tabs 11/04/21 Wheel Chair 11/15/21 blood sugar diagnostic (True Metrix Glucose Test Strip) 11/15/21 blood-glucose meter,continuous (Dexcom G6 Avionics Electrical Engineer) 11/15/21 pen needle, diabetic 32 gauge x 5/32 (BD Ultra-Fine Key Pen Needle) 11/15/21 loperamide 2 mg capsule (Imodium A-D) 2 mg PO Q6H PRN loose stool #20 caps 11/18/21 nitroglycerin 0.4 mg sublingual tablet 0.4 mg sublingual Q5-15M PRN chest pain #25 tabs 11/20/21 ostomy supplies #1 ea 02/13/22 dicyclomine 10 mg capsule 20 mg PO DAILY Check with primary doctor 03/14/22 lamotrigine 100 mg tablet 200 mg PO DAILY 07/20/22 metoprolol tartrate 25 mg tablet 25 mg PO .COMPLEX bp #180 tabs 07/28/22 atorvastatin 80 mg tablet 80 mg PO QHS CHOLESTEROL LOWERING #90 tabs 08/04/22 blood-glucose transmitter (Dexcom G6 Transmitter device) #1 ea 08/07/22 metoprolol tartrate 50 mg tablet 50 mg PO .COMPLEX Check with primary doctor 09/02/22 Handicap Placard #1 ea 09/16/22 dapagliflozin propanediol 10 mg tablet ([facility]) 10 mg PO DAILY #90 tabs 09/16/22 triamcinolone acetonide 0.1 % topical cream 1 applic topical BID PRN rash #453.6 grams 09/16/22 isosorbide dinitrate 30 mg tablet 30 mg PO BID heart #60 tabs 12/11/22 blood-glucose sensor (Dexcom G6 Sensor device) #9 ea 12/14/22 insulin pump cart,automated,BT (Omnipod 5 G6 Pods (Gen 5) subcutaneous cartridge) #45 ea 01/13/23 Juanita Cohesive Seal 2 diameter #15 ea 01/18/23 Esenta Sting Free Adhesive Remover Wipe - #15 ea 01/18/23 Esenta Sting Free Skin Barrier [place], 50 mL - #15 ea 01/18/23 Esteem + Convex One-Piece Drainable Pre-Cut Pouch w/ visiClose, Durahesive, 12 panel [place], 1 03/15 #15 ea 01/18/23 clopidogrel 75 mg tablet 75 mg PO DAILY Check with primary doctor #90 tabs 02/04/23 pregabalin 75 mg capsule 75 mg PO BID pain #60 caps 02/04/23 ursodiol 300 mg capsule 300 mg PO BID #180 caps 02/04/23 blood sugar diagnostic (True Metrix Glucose Test Strip) #100 ea 02/08/23 buprenorphine 15 mcg/hour weekly transdermal patch 1 patch transdermal Q7D 02/10/23 melatonin 5 mg tablet 5 mg PO HS 02/10/23 cyclobenzaprine 10 mg tablet 10 mg PO TID PRN muscle spasm #30 tabs 02/24/23 ipratropium 0.5 mg-albuterol 3 mg (2.5 mg base)/3 mL nebulization soln 3 ml inhalation 6XD PRN shortness of breath or wheezing #90 mL 03/03/23 benzonatate 200 mg capsule 200 mg PO BID PRN cough #30 caps 03/10/23 insulin lispro 200 unit/mL (3 mL) subcutaneous pen (Humalog KwikPen U-200 Insulin) 130 unit (0.65 mL) subcut DAILY diabetes #60 mL 03/12/23 trazodone 50 mg tablet 50 mg PO QHS 03/18/23 cholestyramine (with sugar) 4 gram powder for susp in a packet 4 g PO BIDAC #60 ea 03/22/23 diphenoxylate-atropine 2.5 mg-0.025 mg tablet (Lomotil) 1 tab PO TID diarrhea #90 tabs 03/22/23 pantoprazole 40 mg tablet,delayed release (Protonix) 40 mg PO BID #60 tabs 03/22/23 Hospital Course Operations None Procedures None Summary of Care Provided Minutes Spent on Discharge: 31 Hospital Course: This 62-year-old white female was seen in the emergency room at [facility] with complaints of watery output from her ileostomy since the evening before. Patient also complained of some nausea and vomiting, labs showed a slightly elevated WBC, creatinine was elevated at 2.48 and BUN was 44. Patient was admitted to [place] [address], she was placed on IV fluids and seen in consultation by gastroenterology, gastroenterology put her on octreotide drip along with a Protonix drip. Patient improved during her hospitalization. 03/22/2023, patient was seen and examined: On examination she appeared in good health and spirits, she does not appear to be in any distress. Vital signs as documented. Skin warm and dry and without overt rashes. Neck without JVD, thyroid appears normal, trachea is midline, neck is supple. Lungs clear, normal air movement was noted. Heart exam notable for regular rhythm, normal sounds and absence of murmurs, rubs or gallops. Abdomen unremarkable and without evidence of organomegaly, masses, or abdominal aortic enlargement, bowel sounds are present in all 4 quadrants, no abdominal tenderness was noted. An ileostomy was present. Extremities nonedematous, no cyanosis was noted, no clubbing was noted. Neuro: Cranial nerves II through XII are grossly intact, no focal motor deficits were noted, sensation to light touch and pinprick is intact, motor exam 5/5 throughout. Psych: Patient is alert and oriented x3, she does not appear anxious or depressed, she does not appear agitated. Patient was discharged home in stable condition on 03/22/2023. Weight / BMI Weight Weight: 88.706 kg Body Mass Index (BMI) 30.6 ABG / Lab / Microbiology Data 03/19/23 05:18 03/22/23 06:10 Laboratory: Laboratory Results - last 24 hr 03/22/23 00:20: POC Glucose 294 H 03/22/23 06:10: Sodium 139, Potassium 4.7, Chloride 110 H, Carbon Dioxide 21.0, Anion Gap 8, BUN 22 H, Creatinine 1.82 H, Estim Creat Clear Calc 35.71, Est GFR (MDRD) Af Amer 36 L, Est GFR (MDRD) Non-Af 30 L, BUN/Creatinine Ratio 12.1, Glucose 254 H, Calcium 9.1 03/22/23 06:34: POC Glucose 241 H 03/22/23 11:48: POC Glucose 331 H 03/22/23 15:27: POC Glucose 222 H Microbiology: Microbiology 03/19/23 18:12 Stool Stool Lactoferrin - Final 03/18/23 15:08 Stool Enteric Bacteriology - Final 03/18/23 15:08 Stool Clostridioides difficile (PCR) - Final D/C Instructions Discharge Diet: 1800 Calorie Control Diet Weight Bearing Status: Full weight bearing Meaningful Use Info Meaningful Use Diagnoses (Choose all that apply): None applicable Discharge Plan Admission Admit Date/Time: 03/19/23 12:44 Primary Reason for Your Visit: Acute kidney injury Attending Provider: Roberto Brewster Primary Care Provider: Mala Mcgrath Consulting Providers: Friend,Aj; Kristopher Booker Discharge Orders/Prescriptions Prescriptions: New cholestyramine (with sugar) 4 gram Powder In Packet 4 g PO BIDAC Qty: 60 0RF pantoprazole [Protonix] 40 mg tablet,delayed release (DR/EC) 40 mg PO BID Qty: 60 0RF Continued duloxetine 30 mg capsule,delayed release(DR/EC) 90 mg PO DAILY nitroglycerin 0.4 mg tablet, sublingual 0.4 mg sublingual Q5-15M PRN (Reason: chest pain) Qty: 25 6RF Rx Instructions: do not exceed 3 doses per episode buprenorphine 15 mcg/hour patch weekly 1 patch transdermal Q7D Patient Comments: changes on wednesday melatonin 5 mg tablet 5 mg PO HS lamotrigine 100 mg tablet 200 mg PO DAILY triamcinolone acetonide 0.1 % cream 1 applic topical BID PRN (Reason: rash) Qty: 453.6 1RF (DME) Handicap Placard See Rx Instructions .ROUTE .MEDSUPPLY Qty: 1 0RF Rx Instructions: As directed, length of time 3 years (DME) True Metrix Glucose Test Strip Strip See Rx Instructions .Route Qty: 100 5RF Rx Instructions: TID cyclobenzaprine 10 mg tablet 10 mg PO TID PRN (Reason: muscle spasm) Qty: 30 0RF benzonatate 200 mg capsule 200 mg PO BID PRN (Reason: cough) Qty: 30 0RF aspirin 81 mg Tablet,Delayed Release (Dr/Ec) 81 mg PO DAILY Hold Instructions: Resume on 06/10/22. (DME) True Metrix Glucose Test Strip Strip See Rx Instructions .Route Rx Instructions: 3 times per day No longer ([facility] Dexcom G6 Avionics Electrical Engineer [facility] Rx Instructions .ROUTE .MEDSUPPLY Rx Instructions: As directed (DME) pen needle, diabetic [BD Ultra-Fine Key Pen Needle] 32 gauge x 5/32 needle See Rx Instructions .ROUTE .MEDSUPPLY Rx Instructions: takes 5 injection/day (DME) Wheel Chair See Rx Instructions Rx Instructions: As directed loperamide [Imodium A-D] 2 mg capsule 2 mg PO Q6H PRN (Reason: loose stool) Qty: 20 0RF dicyclomine 10 mg capsule 20 mg PO DAILY metoprolol tartrate 50 mg tablet 50 mg PO .COMPLEX Rx Instructions: 50 mg orally twice a day with a 25 mg tablet twice a day to = 75 mg twice a day; trazodone 50 mg tablet 50 mg PO QHS hyoscyamine sulfate 0.125 mg tablet 0.125 mg PO Q6H PRN (Reason: dyspepsia) Qty: 60 2RF (DME) ostomy supplies See Rx Instructions .Route .MEDSUPPLY Qty: 1 0RF Rx Instructions: Pouches Barrier rings Adhesive remover Skin Prep Barrier powder metoprolol tartrate 25 mg tablet 25 mg PO .COMPLEX Qty: 180 3RF Rx Instructions: 25 mg orally take with a 50 mg tablet twice a day to = 75 mg twice a day; atorvastatin 80 mg tablet 80 mg PO QHS Qty: 90 3RF Patient Comments: cholesterol (DME) Dexcom G6 Transmitter Device See Rx Instructions .ROUTE .MEDSUPPLY Qty: 1 3RF Rx Instructions: 1 transmitter every 90 days Farxiga 10 mg tablet 10 mg PO DAILY Qty: 90 1RF isosorbide dinitrate 30 mg tablet 30 mg PO BID Qty: 60 11RF (DME) Dexcom G6 Sensor Device See Rx Instructions .ROUTE .MEDSUPPLY Qty: 9 1RF Rx Instructions: 1 sensor every 10 days (DME) Omnipod 5 G6 Pods (Gen 5) Cartridge See Rx Instructions .Route Qty: 45 1RF Rx Instructions: 1 pod q 48 hours (DME) Juanita Cohesive Seal 2 diameter See Rx Instructions .Route .MEDSUPPLY Qty: 15 7RF Rx Instructions: As directed (DME) Esenta Sting Free Adhesive Remover Wipe - See Rx Instructions .Route .MEDSUPPLY Qty: 15 7RF Rx Instructions: As directed (DME) Esenta Sting Free Skin Barrier [place], 50 mL - See Rx Instructions .Route .MEDSUPPLY Qty: 15 7RF Rx Instructions: As directed ([facility] Esteem + Convex One-Piece Drainable Pre-Cut Pouch w/ visiClose, D urahesive, 12 panel [place], 1 03/15 See Rx Instructions .Route .MEDSUPPLY Qty: 15 7RF Rx Instructions: As directed clopidogrel 75 mg tablet 75 mg PO DAILY Qty: 90 3RF Hold Instructions: Resume on 06/10/22. Rx Instructions: TAKE 1 TABLET BY MOUTH EVERY DAY pregabalin 75 mg capsule 75 mg PO BID Qty: 60 1RF ursodiol 300 mg capsule 300 mg PO BID Qty: 180 3RF ipratropium-albuterol 0.5 mg-3 mg(2.5 mg base)/3 mL solution for nebulization 3 ml inhalation 6XD PRN (Reason: shortness of breath or wheezing) Qty: 90 0RF Humalog KwikPen Insulin 200 unit/mL (3 mL) insulin pen 130 unit subcut DAILY Qty: 60 3RF Rx Instructions: 2.05 units/hr from 12 AM to 6:30 AM 2.15 units/hr from 6:30 AM to 12 AM Changed diphenoxylate-atropine [Lomotil] 2.5-0.025 mg tablet 1 tab PO TID Qty: 90 0RF Discontinued pantoprazole 40 mg tablet,delayed release (DR/EC) See Rx Instructions .ROUTE .COMPLEX Qty: 28 11RF Dose Instruction: TAKE 1 TABLET BY MOUTH DAILY FOR GERD Rx Instructions: TAKE 1 TABLET BY MOUTH DAILY FOR GERD Referrals / Follow Up: Mala Mcgrath MD [Primary Care Provider] - jA Andino DO [Med Staff - Active Staff] - See Referral Note (in two weeks) Disposition Disposition (needs filled in before D/C Order can be placed): Home, Self Care Charges/Coding Visit Charges Inpatient E&M: 72493 Disch Hosp >30min
[2023-03-23 22:07] LABS: Fats, Neutral Normal (.); Fats, Total Normal (.)
[2023-03-25 12:08] LABS: Pancreatic Elastase, Fecal 60 (>200)
== END 2023-03-22 20:35 | disposition home or self-care (01) | DRG 392 ==
LOC: ED 08:28 → MS3 08:55
PROVIDERS: Internal Medicine Gastroenterology; Admitting Provider Hospitalist; Emergency Provider Emergency Medicine; PCP Internal Medicine; Visit Provider Internal Medicine
DX: K90.822 Short bowel syndrome without colon in continuity (principal); I13.0 Hypertensive heart and chronic kidney disease with heart failure and stage 1 through stage 4 chronic kidney disease, or unspecified chronic kidney disease; N17.9 Acute kidney failure, unspecified; I50.32 Chronic diastolic (congestive) heart failure; E11.22 Type 2 diabetes mellitus with diabetic chronic kidney disease; E11.42 Type 2 diabetes mellitus with diabetic polyneuropathy; N18.32 Chronic kidney disease, stage 3b; E11.43 Type 2 diabetes mellitus with diabetic autonomic (poly)neuropathy; Z79.4 Long term (current) use of insulin; Z93.2 Ileostomy status; E86.0 Dehydration; K21.9 Gastro-esophageal reflux disease without esophagitis; I25.10 Atherosclerotic heart disease of native coronary artery without angina pectoris; K31.84 Gastroparesis; E66.9 Obesity, unspecified; G89.4 Chronic pain syndrome; Z68.31 Body mass index [BMI] 31.0-31.9, adult; Z96.41 Presence of insulin pump (external) (internal); Z95.1 Presence of aortocoronary bypass graft; Z95.5 Presence of coronary angioplasty implant and graft; Z90.49 Acquired absence of other specified parts of digestive tract; Z79.02 Long term (current) use of antithrombotics/antiplatelets; Z79.82 Long term (current) use of aspirin; Z79.84 Long term (current) use of oral hypoglycemic drugs; Z79.899 Other long term (current) drug therapy; Z86.16 Personal history of COVID-19; Z87.891 Personal history of nicotine dependence; Z79.891 Long term (current) use of opiate analgesic
CPT/HCPCS: 36415; 80048; 80076; 81001; 82570; 82653; 82705; 82962; 83630; 83690; 83735; 84100; 84300; 85025; 85027; 85652; 86140; 87493; 87506; 93005; 94668; 99252; 99284; J7030; J7120; A4216; G0463; J2405

== ENCOUNTER → 2023-03-29 | Outpatient (CLI) | payer MEDICARE, MEDICAID, SELFPAY ==
[2023-02-18 12:34] VITALS: BMI 30.9
[2023-03-29 13:08] LABS: Anion Gap 8 (5-15); BUN 25 mg/dL (7-18); Calcium,Total 9.2 mg/dL (8.5-10.1); Chloride 108 mmol/L (98-107); Creatinine, Serum 1.92 mg/dL (0.55-1.02); EST Glomerular Filtration Rate 28 mL/min (>60); Est Glom Filt Rate - Afr Amer 34 mL/min (>60); Glucose 240 mg/dL (74-106); Potassium 4.7 mmol/L (3.5-5.1); Sodium Level 141 mmol/L (136-145)
== END | disposition home or self-care (01) ==
LOC: BIMLAB 08:33
PROVIDERS: PCP Internal Medicine; Visit Provider Internal Medicine
DX: N17.9 Acute kidney failure, unspecified (principal)
CPT/HCPCS: 36415; 80048

== ENCOUNTER 2023-04-02 10:48 | Outpatient (CLI) | payer MEDICARE, MEDICAID, SELFPAY ==
[2023-02-18 12:34] VITALS: BMI 30.9
[2023-04-02 11:05] VITALS: BP 145/62; PULSE 76; RESP 16; TEMP 36.2; O2SAT 96; BMI 31.3
[2023-04-02] MEDS: 0.9% NaCl Peripheral Flush Adult/Peds IV (11:13)
[2023-04-02] MEDS: 0.9% Normal Saline (1000mL) 1,000 ML 999 ML IV (11:16)
[2023-04-02 13:24] VITALS: BP 136/58; PULSE 70; RESP 16; TEMP 36.6; O2SAT 95
== END 2023-04-02 10:49 | disposition home or self-care (01) ==
LOC: MEDOUTP 10:48
PROVIDERS: PCP Internal Medicine; Referring Provider Internal Medicine Gastroenterology; Visit Provider Internal Medicine Gastroenterology
DX: E86.0 Dehydration (principal); R19.8 Other specified symptoms and signs involving the digestive system and abdomen
CPT/HCPCS: 96360; 96361; J7030; A4216

== ENCOUNTER 2023-04-09 10:38 | Outpatient (CLI) | payer MEDICARE, MEDICAID, SELFPAY ==
[2023-02-18 12:34] VITALS: BMI 30.9
[2023-04-09] MEDS: 0.9% NaCl Peripheral Flush Adult/Peds IV (10:50)
[2023-04-09] MEDS: 0.9% Normal Saline (1000mL) 1,000 ML 999 ML IV (10:56)
[2023-04-09 10:58] VITALS: BP 165/72; PULSE 66; RESP 16; TEMP 36.3; O2SAT 96; BMI 31.3
[2023-04-09 12:09] VITALS: BP 167/58; PULSE 68; RESP 16; TEMP 36.5; O2SAT 94
== END 2023-04-09 10:39 | disposition home or self-care (01) ==
LOC: MEDOUTP 10:38
PROVIDERS: PCP Internal Medicine; Referring Provider Internal Medicine Gastroenterology; Visit Provider Internal Medicine Gastroenterology
DX: E86.0 Dehydration (principal); R19.8 Other specified symptoms and signs involving the digestive system and abdomen
CPT/HCPCS: 96360; J7030; A4216

== ENCOUNTER 2023-04-11 15:33 | Inpatient (IN) | payer MEDICARE, MEDICAID, SELFPAY ==
[2023-02-18 12:34] VITALS: BMI 30.9
[2023-04-11 15:34] VITALS: BP 109/74; PULSE 92; RESP 18; TEMP 36.6; O2SAT 95
--- OUTSIDE RECORDS SUMMARY | 2023-04-11 16:58 | XMS RPT_ITS | CCD ---
Author Name Unknown Address [address] [place] [address] Organization [facility] Care Team Providers Care Machine Set Up Operator Name Role Phone GERBER, DEAN C [...] PCP Unavailable Unavailable Oleghe, Efewongbe B Unavailable [phone] Unavailable Unavailable OLEGHE, EFEWONGBE B Primary Care Unavailable EDWIGE JOY Attending Unavailable FRIEND, JACQUELINE Zurita Referring Unavailable Allergies Allergy Classification Reported Allergen(s) Allergy Type Date of Onset Reaction(s) Facility Anticholinergics (1 source) Dicyclomine; Translations: [dicyclomine] [facility] [address] Work Phone: liraglutide (1 source) liraglutide; Translations: [Victoza SOPN] [facility] Work Phone: metFORMIN (1 source) metFORMIN; Translations: [metformin] Drug Allergy [facility] [address] Work Phone: Nitroimidazoles (antibiotic) (1 source) metroNIDAZOLE; Translations: [Flagyl] Drug Allergy [place] [address] Work Phone: Penicillins (antibiotic) (1 source) Penicillins; Translations: [Penicillins] Drug Allergy [place] [address] Work Phone: Sulfonamides (antibiotic) (1 source) Sulfonamides (Antibiotic); Translations: [Sulfa Drugs] Drug Allergy [place] [address] Work Phone: Unclassified (1 source) Cinnamon Flavor OIL; Translations: [Cinnamon Flavor OIL] Allergy to drug (finding) [place] [address] Work Phone: (2 sources) cinnamon preparation; Translations: [CINNAMON] Drug Allergy [facility] (2 sources) codeine; Translations: [CODEINE] Drug Allergy [facility] (4 sources) dicyclomine; Translations: [DICYCLOMINE] Drug Allergy 4 [facility] (2 sources) influenza virus vaccine; Translations: [FLU VACC [id number] 65YR UP(PF)] Drug Allergy 6 [facility] (2 sources) liraglutide; Translations: [LIRAGLUTIDE] Drug Allergy 7 [facility] (2 sources) metFORMIN; Translations: [METFORMIN HCL] Drug Allergy 4 [facility] (2 sources) metroNIDAZOLE; Translations: [METRONIDAZOLE HCL] Drug Allergy 4 [facility] (4 sources) Penicillins; Translations: [PENICILLINS] Propensity to adverse reactions to drug (disorder) 9 [facility] (2 sources) sulfaSALAzine; Translations: [SULFASALAZINE] Drug Allergy 9 [facility] (2 sources) Sulfonamides (Antibiotic); Translations: [SULFA (SULFONAMIDE ANTIBIOTICS)] Propensity to adverse reactions to drug (disorder) 9 [facility] (2 sources) INFLUENZA VIRUS VACCINES; Translations: [INFLUENZA VIRUS VACCINES] Propensity to adverse reactions to drug (disorder) [facility]) liraglutide Drug Allergy [facility] 120 Work Phone: (2 sources) metFORMIN Drug [facility] Work Phone: (2 sources) metroNIDAZOLE Drug Allergy [facility] 120 Work Phone: (2 sources) Sulfonamides (Antibiotic) Allergy to drug (finding) [facility] 120 Work Phone: (1 source) Hmg-Coa Reductase Inhibitors (Statins); Translations: [[id number] REDUCTASE INHIBITORS] Propensity to adverse reactions to drug (disorder) 4 [facility] Repository (1 source) ranolazine; Translations: [RANOLAZINE] Drug Allergy 9 [facility] Repository Medications Completed/Discontinued Medications Medication Drug [...] [Coronary atherosclerosis of unspecified type of vessel, hughes or graft] Chronic Coronary atherosclerosis and other [...] / Z87.891(ICD-10) Onset: 10-21-2016 Unclassified (1 source) 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 / Z79.82(ICD-10) Onset: [...] (Body Mass Index) 30.54 kg/m2 Brennan Duque [facility] 120 Work Phone: 12-20-2019 11:35-0400 Body Temperature 98.2 [degF] Brennan Duque [facility] 120 Work Phone: 12-20-2019 11:35-0400 Body weight 88.45 kg Brennan Duque [facility] 120 Work Phone: 12-20-2019 11:35-0400 BP Diastolic 70 mm[Hg] [facility] 120 Work Phone: 12-20-2019 11:35-0400 BP Systolic 120 mm[Hg] Brennan Duque [facility] 120 Work Phone: 12-20-2019 11:35-0400 BSA (Body Surface Area) 2 m2 Brennan Duque [facility] 120 Work Phone: 12-20-2019 11:35-0400 Height 170.18 cm Brennan Duque [facility] 120 Work Phone: 11-30-2019 11:55-0400 BMI (Body Mass Index) 30.54 kg/m2 Brennan Duque [facility] 120 Work Phone: 11-30-2019 11:55-0400 Body weight 88.45 kg Brennan Duque [facility] 120 Work Phone: 11-30-2019 11:55-0400 BP Diastolic 60 mm[Hg] Brennan Duque [facility] 120 Work Phone: 11-30-2019 11:55-0400 BP Systolic 122 mm[Hg] Brennan Duque [facility] 120 Work Phone: 11-30-2019 11:55-0400 BSA (Body Surface Area) 2 m2 Brennan Duque [facility] 120 Work Phone: 11-30-2019 11:55-0400 Height 170.18 cm Brennan Duque [facility] 120 Work Phone: 11-30-2019 11:55-0400 Pulse (Heart Rate) 66 /min Brennan Duque [facility] 120 Work Phone: 11-30-2019 11:55-0400 Pulse Oximetry 96 % Brennan Duque [facility] 120 Work Phone: Encounters Encounter Date Encounter Type Care Provider Facility Start: 02-18-2022 End: 02-18-2022 ambulatory MALA MADRIGAL Facility:[facility] Start: 10-23-2020 Rx Renewal Mala Zurita Ol eghe Work Phone: [facility] Work Phone: Start: 12-20-2019 Patient encounter procedure Brennan Duque [facility] [facility] 120 Work Phone: Start: 11-30-2019 Patient encounter procedure Brennan Duque [facility] [facility] 120 Work Phone: Start: 07-06-2017 Ambulatory DEAN May GERBER [facility] Start: 10-21-2016 End: 10-21-2016 Ambulatory Huma Ocasio [place] [place]: 10-08-2016 Ambulatory Mena Brown Fac ility:[facility] Start: 09-03-2016 Ambulatory Alireza Tavares [facility] Procedures Date Procedure Procedure Detail [...] Brennan Duque, Status: Pen, Time: 10:00 AM [facility] Work Phone: Payers Date Payer Category Payer Unknown [id number] Unknown [id number] Unknown Social History Date Type Detail Facility Former smoker [facility] Work Phone: NEGATED: Highlighted row - - [facility] 120 Work Phone: Medical Equipment Procedure [...] Type Note Facility 02-18-2022 Note HNO ID: [id number] Author: Edwige Joy RD Service: ? Author [...] pre made sausage sand which or little tnoy cakes, yogurt every now and then Snack - pretzels, string cheese or nuts, popcorn (will see hulls in the bag) Lunch - meals of [employer]/meal delivery service, meat balls and spaghetti, chicken, [...] sand which with salami, ham, cheese sometimes (austrian, yemeni) Beverages - diet coke drinks all day [...] [Metronidazole Hcl], Fluzone High-Dose (Pf) [Flu Vacc [id number] 65yr Up(Pf)], Glucophage [Metformin Hcl], Influenza Virus Vaccines, Penicillins, Ranexa [Ranolazine], Sulfa (Sulfonamide Antibiotics), Victoza [Liraglutide], and Vsbiufz-Wnd-Ffa Reductase Inhibitors Medications: Current Outpatient Medications Medication [...] BY MOUTH EV (more content not included)... [facility] Summary Purpose Family History No Family [...] DATE CREATED AUTHOR AUTHOR'S ORGANIZ ATION 08/31/2017 [facility] DATE CREATED AUTHOR AUTHOR'S ORGANIZ ATION 09/01/2017 [facility] DATE CREATED AUTHOR AUTHOR'S ORGANIZ ATION 09/01/2017 [facility] DATE CREATED AUTHOR AUTHOR'S ORGANIZ ATION 06/18/2020 [employer] DATE CREATED AUTHOR AUTHOR'S ORGANIZ ATION 02/14/2021 [facility] DATE CREATED AUTHOR AUTHOR'S ORGANIZ ATION 02/25/2022 [facility] FOR RECORDS PERTAINING TO PATIENTS WHO [...] BE BASED ON THE PRIMARY CLINICAL RECORDS. [facility] [employer] [facility]. provides no warranty or guarantee of the accuracy or completeness of information in this document.
[2023-04-11] MEDS: Morphine 4 MG/ML Syringe IV (17:23)
[2023-04-11] MEDS: 0.9% Normal Saline (1000mL) 1,000 ML 1000 ML IV (17:23)
--- NOTE | 2023-04-11 17:23 | EX.ED.DYSGE1 ---
HPI History of Present Illness Chief Complaint: Nausea/Vomiting/Diarrhea Informant: patient Narrative Narrative: Patient is a 62-year-old female with extensive GI history including gastroparesis, nonalcoholic fatty liver disease, ileostomy with short gut syndrome presenting with concerns of dehydration. Over the past 2 days patient had increased output of her ileostomy. She receives weekly IV fluid infusions and has been following this. She follows with Dr. Andino. Denies any blood in her ostomy. Is having diffuse lower abdominal cramping pain which is typical when she has these flares. Did have vomiting but again denies any blood in her vomit. Is now just having rotten egg burps . Denies any fever or chills. Is not sure why her gastroparesis/output is acting up. She notes has been having empty her ileostomy bag hourly when normally she only change it a few times a day. Notes that she was recently prescribed a new medication by Dr. Andino that is a crystal that gets dissolved in water and she took it last night which did help but her symptoms are worse than ever this morning again. Is concerned about her kidney function as last time this happened she had to be admitted for dehydration. No other complaints or concerns at this time. [facility] Medical History (Updated 04/11/23 @ 20:[address] Jaylin Peres, DO) Acute kidney injury Anxiety Anxiety and depression Arthritis Avascular necrosis of bone of left hip BiPAP (biphasic positive airway pressure) dependence BMI 31.0-31.9,adult CAD (coronary artery disease) Cardiology follow-up encounter Cellulitis, abdominal wall Chronic back pain Chronic diastolic (congestive) heart failure Chronic narcotic use Chronic pain Chronic respiratory failure Chronic respiratory failure with hypoxia, on home O2 therapy CKD (chronic kidney disease), stage IV Congestive heart failure (CHF) COPD (chronic obstructive pulmonary disease) COPD (chronic obstructive pulmonary disease) Depression Depression with anxiety Diabetic gastroparesis DM2 (diabetes mellitus, type 2) Elevated anti-tissue transglutaminase (tTG) IgA level Fatty liver FCHL (familial combined hyperlipidemia) Former smoker Gastric reflux Gastroparesis High output ileostomy History of CAD (coronary artery disease) History of COVID-19 Hx of diabetic gastroparesis Hyperlipidemia Hypertension Ileostomy present Insulin dependent diabetes mellitus Left shoulder pain Liver mass Loss of hearing Malaise and fatigue Menieres disease MGUS (monoclonal gammopathy of unknown significance) Migraine headache Myoclonic jerking Non-alcoholic fatty liver disease Nonalcoholic steatohepatitis Obesity Obstructive sleep apnea Psoriasis Rheumatoid arthritis Secondary pulmonary arterial hypertension Short bowel syndrome Sleep apnea Smoking greater than 20 pack years Tremor Type 2 diabetes mellitus with diabetic polyneuropathy Ulcerative colitis Vitamin B12 deficiency Vitamin D deficiency Walker as ambulation aid Wears glasses Home Medications aspirin 81 mg tablet,delayed release 81 mg PO DAILY heart health 04/08/21 [History Last Taken 04/10/23] duloxetine 30 mg capsule,delayed release 90 mg PO DAILY depression 10/06/21 [History Last Taken 04/10/23] Wheel Chair 11/15/21 [History Last Taken Unknown] blood sugar diagnostic (True Metrix Glucose Test Strip) 11/15/21 [History Last Taken Unknown] blood-glucose meter,continuous (Dexcom G6 Customer Service Voice) 11/15/21 [History Last Taken Unknown] pen needle, diabetic 32 gauge x 5/32 (BD Ultra-Fine Key Pen Needle) 11/15/21 [History Last Taken Unknown] nitroglycerin 0.4 mg sublingual tablet 0.4 mg sublingual Q5-15M PRN chest pain #25 tabs 11/20/21 [Rx Last Taken Unknown] ostomy supplies #1 ea 02/13/22 [Rx Last Taken Unknown] lamotrigine 100 mg tablet 200 mg PO DAILY mood stabilizer 07/20/22 [History Last Taken 04/10/23] metoprolol tartrate 25 mg tablet 25 mg PO .COMPLEX bp #180 tabs 07/28/22 [Rx Last Taken Unknown] atorvastatin 80 mg tablet 80 mg PO QHS CHOLESTEROL LOWERING #90 tabs 08/04/22 [Rx Last Taken 04/10/23] blood-glucose transmitter (Dexcom G6 Transmitter device) #1 ea 08/07/22 [Rx Last Taken Unknown] metoprolol tartrate 50 mg tablet 50 mg PO .COMPLEX blood pressure 09/02/22 [History Last Taken 04/10/23] Handicap Placard #1 ea 09/16/22 [Rx Last Taken Unknown] isosorbide dinitrate 30 mg tablet 30 mg PO BID heart #60 tabs 12/11/22 [Rx Last Taken Unknown] blood-glucose sensor (Dexcom G6 Sensor device) #9 ea 12/14/22 [Rx Last Taken Unknown] insulin pump cart,automated,BT (Omnipod 5 G6 Pods (Gen 5) subcutaneous cartridge) #45 ea 11/08/23 [Rx Last Taken Unknown] Juanita Cohesive Seal 2 diameter #15 ea 01/18/23 [Rx Last Taken Unknown] Esenta Sting Free Adhesive Remover Wipe - #15 ea 01/18/23 [Rx Last Taken Unknown] Esenta Sting Free Skin Barrier Bennett, 50 mL - #15 ea 01/18/23 [Rx Last Taken Unknown] Esteem + Convex One-Piece Drainable Pre-Cut Pouch w/ visiClose, Durahesive, 12 panel Opaque, 1 03/15 #15 ea 01/18/23 [Rx Last Taken Unknown] clopidogrel 75 mg tablet 75 mg PO DAILY heart health #90 tabs 02/04/23 [Rx Last Taken 04/10/23] pregabalin 75 mg capsule 75 mg PO BID pain #60 caps 02/04/23 [Rx Last Taken Unknown] blood sugar diagnostic (True Metrix Glucose Test Strip) #100 ea 02/08/23 [Rx Last Taken Unknown] buprenorphine 15 mcg/hour weekly transdermal patch 1 patch transdermal Q7D pain 02/10/23 [History Last Taken 04/10/23] melatonin 5 mg tablet 5 mg PO HS sleep 02/10/23 [History Last Taken 04/10/23] cyclobenzaprine 10 mg tablet 10 mg PO TID PRN muscle spasm #30 tabs 02/24/23 [Rx Last Taken Unknown] benzonatate 200 mg capsule 200 mg PO BID PRN cough #30 caps 03/10/23 [Rx Last Taken Unknown] insulin lispro 200 unit/mL (3 mL) subcutaneous pen (Humalog KwikPen U-200 Insulin) 130 unit (0.65 mL) subcut DAILY diabetes #60 mL 03/12/23 [Rx Last Taken Unknown] trazodone 50 mg tablet 50 mg PO QHS sleep 03/18/23 [History Last Taken Unknown] cholestyramine (with sugar) 4 gram powder for susp in a packet 4 g PO BIDAC stool #60 ea 03/31/23 [Rx Last Taken 04/11/23] dicyclomine 10 mg capsule 20 mg (2 x 10 mg) PO BID PRN abdominal pain #30 caps 03/31/23 [Rx Last Taken Unknown] diphenoxylate-atropine 2.5 mg-0.025 mg tablet (Lomotil) 1 tab PO TID diarrhea #90 tabs 03/31/23 [Rx Last Taken Unknown] pantoprazole 40 mg tablet,delayed release (Protonix) 40 mg PO BID GERD #60 tabs 03/31/23 [Rx Last Taken Unknown] dapagliflozin propanediol 10 mg tablet (Farxiga) 10 mg PO DAILY diabetes #90 tabs 04/03/23 [Rx Last Taken 04/10/23] Allergy/AdvReac Type Severity Reaction Status Date / Time ciprofloxacin Allergy Intermediate Swelling Verified 04/11/23 15:36 cinnamon [Cinnamon] Allergy Anaphylaxis Verified 04/11/23 15:36 Influenza Virus Vaccines Allergy Shortness Verified 04/11/23 15:36 of breath liraglutide [From Victoza] Allergy Anaphylaxis Verified 04/11/23 15:36 metformin [From Glucophage] Allergy NEEDS Verified 04/11/23 15:36 FOLLOW-UP metronidazole [From Flagyl] Allergy Hives Verified 04/11/23 15:36 Metronidazole HCl Allergy Hives Verified 04/11/23 15:36 [From Flagyl] Penicillins Allergy Hives Verified 04/11/23 15:36 Sulfa (Sulfonamide Allergy Hives Verified 04/11/23 15:36 Antibiotics) aripiprazole [From Abilify] AdvReac hallucinati Verified 04/11/23 15:36 ons codeine AdvReac Stops Verified 04/11/23 15:36 Ileostomy metformin HCl AdvReac Nausea Verified 04/11/23 15:36 [From Glucophage] ranolazine AdvReac Nausea/Vom/ Verified 04/11/23 15:36 Diarrhea Ruukwll-SMW-IaM Reductase AdvReac Nausea/joints Verified 04/11/23 15:36 Inhibitor ache [Dswulnk-Bhk-Uhi Reductase Inhibitor] Family History Mother CVA (cerebral vascular accident) Diabetes Brother Heart disease of CAD at 65 Myocardial infarction Pancreatitis Father Cancer lymphomia Lymphoma Grandmother Myocardial infarction of VT in her 70s Sister COPD (chronic obstructive pulmonary disease) Surgical History H/O colectomy H/O coronary artery bypass surgery (05/18/12) H/O sinus surgery H/O total hysterectomy history closed fissure History of appendectomy History of History of cardiac catheterization History of cholecystectomy History of coronary artery stent placement (01/12/18) History of coronary artery stent placement ileostomy Ileostomy status left thumb surgery Status post total hip replacement, left Social History household members: none Smoking Status: Former smoker quit date: 03/08/12 how long ago did patient quit smoking: quit in 2012; 0.5-1ppd x 30yrs alcohol intake: never substance use type: does not use diet: diabetic caffeine: No eating out: 1-3 times/week what type of physical activity do you participate in: none seatbelt use: always do you feel safe at home: Yes ROS ROS ED Constitutional Constitutional ED: Denies chills or fever(s) ENT ENT ED: Denies sore throat Cardiovascular Cardiovascular: Denies chest pain Respiratory/Chest Respiratory/Chest: Denies cough Gastrointestinal Gastrointestinal: Reports abdominal pain, diarrhea, nausea, vomiting and other Details: Ileostomy bag in place. Yellow clear output in it. Genitourinary Genitourinary ED: Denies dysuria Musculoskeletal Musculoskeletal: Denies arthralgias or myalgias Integumentary Denies rash Neurologic Neurologic: Reports weakness; Denies headache(s) or paresthesias EXAM Physical Exam Const Vital Signs: 04/11/23 15:34 04/11/23 18:56 Temperature 97.8 F Temperature Source Temporal Pulse Rate 92 88 Respiratory Rate 18 18 Blood Pressure 109/74 90/61 Blood Pressure Mean 85 70 Pulse Ox 95 99 Oxygen Delivery Method Room Air Positive well nourished and well developed General Appearance ED: well developed and NAD HEENT Reports dry mucous membranes Mouth ED: Yes dry mucous membranes Mouth: dry mucous membranes Neck supple Chest Wall inspection of chest normal and palpation of chest normal Resp normal respiratory effort and clear to auscultation bilaterally Cardio regular rate and regular rhythm GI GI Narrative: Ileostomy in the left upper quadrant with yellow watery output. No blood appreciated. Inspection: Negative for abdominal distention Auscultation: hyperactive bowel sounds Palpation: soft and tender LLQ and RLQ Extremity normal to inspection General Extremety ED: Negative for edema General Extremity: Negative for edema Psych mental status grossly normal Skin no rashes or lesions noted and no wounds MDM MDM MDM Narrative Medical decision making narrative: Patient is evaluated for increased ostomy output over the past 48 hours. Vital signs upon arrival are normal. Patient appears mildly dehydrated. The last time she had this was about a month ago and at that time she had RALPH requiring admission. She states she is having her ostomy every hour now. Otherwise overall well-appearing. Is given a dose of morphine and Zofran for symptom control. Differential includes electrolyte derangement, gastroenteritis, dehydration. Lower suspicion for an acute infection given her lack of fever, leukocytosis or other infectious symptoms. Given that she is having increased output of the lower suspicion for an obstruction and I do not think she requires a CT abdomen pelvis. Patient does have improvement with IV fluids, morphine and Zofran. Lab work is significant for an RALPH with a creatinine of 3.04 (baseline appears to be 1.9.) She is mildly hyponatremic with a sodium of 131. Lab work otherwise unremarkable. Patient be admitted for IV fluids and hydration given her RALPH. Case discussed with my physician, Dr. Renae. Lab Data Labs: Laboratory Results - last 24 hr 04/11/23 04/11/23 17:45 17:45 WBC 10.3 RBC 5.73 H Hgb 15.0 Hct 48.6 H MCV 84.8 MCH 26.2 L MCHC 30.9 L RDW Std Deviation 51.6 H RDW Coeff of Jan 17.0 H Plt Count 227 MPV 11.7 Immature Gran % (Auto) 0.400 Neut % (Auto) 70.2 H Lymph % (Auto) 19.1 [place] % (Auto) 6.3 Eos % (Auto) 3.7 Baso % (Auto) 0.3 Absolute Neuts (auto) 7.3 Absolute Lymphs (auto) 1.97 Nucleated RBC % 0 Sodium 131 L Potassium 5.0 Chloride 107 Carbon Dioxide 16.0 L BUN 38 H Creatinine 3.04 H Est GFR (MDRD) Af Amer 20 L Est GFR (MDRD) Non-Af 16 L BUN/Creatinine Ratio 12.5 Glucose 189 H Calcium 10.1 Phosphorus 3.1 Magnesium 1.6 Total Bilirubin 1.20 H Direct Bilirubin 0.28 AST 22 ALT 24 Alkaline Phosphatase 158 H Total Protein 9.2 H Albumin 3.7 3.8 Globulin 5.5 H Lipase 32 Discharge Plan Dx/Rx/DC Orders Clinical Impression: Acute dehydration, Ileostomy present, RALPH (acute kidney injury) Disposition Disposition: Acute Care Hospital [facility] Discharge Date/Time: 04/11/23 20:10
[2023-04-11] MEDS: Metoclopramide 10 MG/2 ML Vial IV (17:24)
[2023-04-11 17:51] LABS: Absolute Lymphocyte Count 1.97 X10^3/uL (0.83-4.51); Absolute Neutrophil Count 7.3 X10^3/uL (2.0-7.7); Basophil# 0.03 X10^3/uL; Basophil% 0.3 % (0-1); Eosinophil# 0.38 X10^3/uL; Eosinophils% 3.7 % (0-5); Hematocrit 48.6 % (37-47); Lymphocyte # 1.97 X10^3/ul (0.83-4.51); Lymphocyte % 19.1 % (19-41); Mean Corp Hgb Conc 30.9 g/dL (32-36); Mean Corpuscular Hgb 26.2 pg (27.0-32.0); Mean Corpuscular Volume 84.8 fL (81-99); Mean Platelet Vol. 11.7 fl (6.2-12.0); Monocyte# 0.65 X10^3/uL; Monocyte% 6.3 % (0-10); NRBC Flagged by Analyzer 0 % (0-5); Neutrophil # 7.26 X10^3/uL (2.7-7.7); Neutrophil % 70.2 % (47-70); Platelet Count 227 K/mm3 (150-450); RBC Distribution Width SD 51.6 fl (35.1-43.9); Red Blood Count 5.73 M/mm3 (4.2-5.4); White Blood Count 10.3 K/mm3 (4.4-11.0)
[2023-04-11 18:04] LABS: Albumin, Serum 3.8 g/dL (3.2-5.0); BUN 38 mg/dL (7-18); BUN/Creat Ratio 12.5 RATIO (10-20); Calcium,Total 10.1 mg/dL (8.5-10.1); Chloride 107 mmol/L (98-107); Creatinine, Serum 3.04 mg/dL (0.55-1.02); EST Glomerular Filtration Rate 16 mL/min (>60); Est Glom Filt Rate - Afr Amer 20 mL/min (>60); Glucose 189 mg/dL (74-106); Lipase 32 U/L (13-75); Magnesium 1.6 mg/dL (1.6-2.6); Phosphorus 3.1 mg/dL (2.5-4.9); Sodium Level 131 mmol/L (136-145)
[2023-04-11 18:08] LABS: AST(SGOT) 22 U/L (15-37); Alanine Aminotransfer ALT/SGPT 24 U/L (13-56); Albumin, Serum 3.7 g/dL (3.2-5.0); Alkaline Phosphatase 158 U/L (45-117); Bilirubin, Direct 0.28 mg/dL (0.00-0.30); Globulin 5.5 g/dL (2.2-4.2); Protein, Total 9.2 g/dL (6.4-8.2)
--- NOTE | 2023-04-11 18:28 | PCM.HP.STD ---
HPI - General General Date of Admission: 04/11/23 Date of Service: 04/11/23 Chief Complaint: Acute nausea and vomiting HPI Narrative ASHLEY MÉNDEZ, is a 62 F with history of ulcerative colitis s/p total colectomy with ileostomy, gastroparesis, NAFLD, who presents to the ED with concerns regarding dehydration following increased output from her ileostomy. For the last 2 days she is having diffuse lower abdominal cramping pain and has to empty her ileostomy bag or really which she used to do every few times a day. She was recently started on Cholestyramine and her bowel movements had improved. She ate at local restaurant on Wednesday night and has been having the symptoms since yesterday. Has noticed a change in the consistency of stools and it is excessively watery. No foul smell or blood noticed. At the time of presentation to the ED, her creatinine was 3.04 up from 1.9 on 03/29/2023. She follows up with Dr. Andino in the GI clinic. Has been ongoing concerns regarding increased ileostomy output and previously infection workup was negative. She is presently on Lomotil and cholestyramine. The neck step is include octreotide and Gattex initiation but the medications have not been approved by her insurance yet. [facility] Medical History (Updated 03/30/23 @ 00:01 by Inna Vigil) Acute kidney injury Anxiety Anxiety and depression Arthritis Avascular necrosis of bone of left hip BiPAP (biphasic positive airway pressure) dependence BMI 31.0-31.9,adult CAD (coronary artery disease) Cardiology follow-up encounter Cellulitis, abdominal wall Chronic back pain Chronic diastolic (congestive) heart failure Chronic narcotic use Chronic pain Chronic respiratory failure Chronic respiratory failure with hypoxia, on home O2 therapy CKD (chronic kidney disease), stage IV Congestive heart failure (CHF) COPD (chronic obstructive pulmonary disease) COPD (chronic obstructive pulmonary disease) Depression Depression with anxiety Diabetic gastroparesis DM2 (diabetes mellitus, type 2) Elevated anti-tissue transglutaminase (tTG) IgA level Fatty liver FCHL (familial combined hyperlipidemia) Former smoker Gastric reflux Gastroparesis High output ileostomy History of CAD (coronary artery disease) History of COVID-19 Hx of diabetic gastroparesis Hyperlipidemia Hypertension Ileostomy present Insulin dependent diabetes mellitus Left shoulder pain Liver mass Loss of hearing Malaise and fatigue Menieres disease MGUS (monoclonal gammopathy of unknown significance) Migraine headache Myoclonic jerking Non-alcoholic fatty liver disease Nonalcoholic steatohepatitis Obesity Obstructive sleep apnea Psoriasis Rheumatoid arthritis Secondary pulmonary arterial hypertension Short bowel syndrome Sleep apnea Smoking greater than 20 pack years Tremor Type 2 diabetes mellitus with diabetic polyneuropathy Ulcerative colitis Vitamin B12 deficiency Vitamin D deficiency Walker as ambulation aid Wears glasses Home Medications aspirin 81 mg tablet,delayed release 81 mg PO DAILY Check with primary doctor 04/08/21 [History Last Taken 05/27/22] duloxetine 30 mg capsule,delayed release 90 mg PO DAILY Check with primary doctor 10/06/21 [History Last Taken 05/27/22] Wheel Chair 11/15/21 [History Last Taken Unknown] blood sugar diagnostic (True Metrix Glucose Test Strip) 11/15/21 [History Last Taken Unknown] blood-glucose meter,continuous (Dexcom G6 Limousine Rental Clerk) 11/15/21 [History Last Taken Unknown] pen needle, diabetic 32 gauge x 5/32 (BD Ultra-Fine Key Pen Needle) 11/15/21 [History Last Taken Unknown] nitroglycerin 0.4 mg sublingual tablet 0.4 mg sublingual Q5-15M PRN chest pain #25 tabs 11/20/21 [Rx Last Taken Unknown] ostomy supplies #1 ea 02/13/22 [Rx Last Taken Unknown] lamotrigine 100 mg tablet 200 mg PO DAILY 07/20/22 [History Last Taken Unknown] metoprolol tartrate 25 mg tablet 25 mg PO .COMPLEX bp #180 tabs 07/28/22 [Rx Last Taken Unknown] atorvastatin 80 mg tablet 80 mg PO QHS CHOLESTEROL LOWERING #90 tabs 08/04/22 [Rx Last Taken Unknown] blood-glucose transmitter (Dexcom G6 Transmitter device) #1 ea 08/07/22 [Rx Last Taken Unknown] metoprolol tartrate 50 mg tablet 50 mg PO .COMPLEX Check with primary doctor 09/02/22 [History Last Taken Unknown] Handicap Placard #1 ea 09/16/22 [Rx Last Taken Unknown] triamcinolone acetonide 0.1 % topical cream 1 applic topical BID PRN rash #453.6 grams 09/16/22 [Rx Last Taken Unknown] isosorbide dinitrate 30 mg tablet 30 mg PO BID heart #60 tabs 12/11/22 [Rx Last Taken Unknown] blood-glucose sensor (Dexcom G6 Sensor device) #9 ea 12/14/22 [Rx Last Taken Unknown] insulin pump cart,automated,BT (Omnipod 5 G6 Pods (Gen 5) subcutaneous cartridge) #45 ea 01/13/23 [Rx Last Taken Unknown] Juanita Cohesive Seal 2 diameter #15 ea 01/18/23 [Rx Last Taken Unknown] Esenta Sting Free Adhesive Remover Wipe - #15 ea 01/18/23 [Rx Last Taken Unknown] Esenta Sting Free Skin Barrier [place], 50 mL - #15 ea 01/18/23 [Rx Last Taken Unknown] Esteem + Convex One-Piece Drainable Pre-Cut Pouch w/ visiClose, Durahesive, 12 panel [place], 1 03/15 #15 ea 01/18/23 [Rx Last Taken Unknown] clopidogrel 75 mg tablet 75 mg PO DAILY Check with primary doctor #90 tabs 02/04/23 [Rx Last Taken Unknown] pregabalin 75 mg capsule 75 mg PO BID pain #60 caps 02/04/23 [Rx Last Taken Unknown] blood sugar diagnostic (True Metrix Glucose Test Strip) #100 ea 02/08/23 [Rx Last Taken Unknown] buprenorphine 15 mcg/hour weekly transdermal patch 1 patch transdermal Q7D 02/10/23 [History Last Taken Unknown] melatonin 5 mg tablet 5 mg PO HS 02/10/23 [History Last Taken Unknown] cyclobenzaprine 10 mg tablet 10 mg PO TID PRN muscle spasm #30 tabs 02/24/23 [Rx Last Taken Unknown] ipratropium 0.5 mg-albuterol 3 mg (2.5 mg base)/3 mL nebulization soln 3 ml inhalation 6XD PRN shortness of breath or wheezing #90 mL 03/03/23 [Rx Last Taken Unknown] benzonatate 200 mg capsule 200 mg PO BID PRN cough #30 caps 03/10/23 [Rx Last Taken Unknown] insulin lispro 200 unit/mL (3 mL) subcutaneous pen (Humalog KwikPen U-200 Insulin) 130 unit (0.65 mL) subcut DAILY diabetes #60 mL 03/12/23 [Rx Last Taken Unknown] trazodone 50 mg tablet 50 mg PO QHS 03/18/23 [History Last Taken Unknown] cholestyramine (with sugar) 4 gram powder for susp in a packet 4 g PO BIDAC #60 ea 03/31/23 [Rx Last Taken Unknown] dicyclomine 10 mg capsule 20 mg (2 x 10 mg) PO BID PRN abdominal pain #30 caps 03/31/23 [Rx Last Taken Unknown] diphenoxylate-atropine 2.5 mg-0.025 mg tablet (Lomotil) 1 tab PO TID diarrhea #90 tabs 03/31/23 [Rx Last Taken Unknown] pantoprazole 40 mg tablet,delayed release (Protonix) 40 mg PO BID #60 tabs 03/31/23 [Rx Last Taken Unknown] dapagliflozin propanediol 10 mg tablet (Farxiga) 10 mg PO DAILY #90 tabs 04/03/23 [Rx Last Taken Unknown] Allergy/AdvReac Type Severity Reaction Status Date / Time ciprofloxacin Allergy Intermediate Swelling Verified 04/11/23 15:36 cinnamon [Cinnamon] Allergy Anaphylaxis Verified 04/11/23 15:36 Influenza Virus Vaccines Allergy Shortness Verified 04/11/23 15:36 of breath liraglutide [From Victoza] Allergy Anaphylaxis Verified 04/11/23 15:36 metformin [From Glucophage] Allergy NEEDS Verified 04/11/23 15:36 FOLLOW-UP metronidazole [From Flagyl] Allergy Hives Verified 04/11/23 15:36 Metronidazole HCl Allergy Hives Verified 04/11/23 15:36 [From Flagyl] Penicillins Allergy Hives Verified 04/11/23 15:36 Sulfa (Sulfonamide Allergy Hives Verified 04/11/23 15:36 Antibiotics) aripiprazole [From Abilify] AdvReac hallucinati Verified 04/11/23 15:36 ons codeine AdvReac Stops Verified 04/11/23 15:36 Ileostomy metformin HCl AdvReac Nausea Verified 04/11/23 15:36 [From Glucophage] ranolazine AdvReac Nausea/Vom/ Verified 04/11/23 15:36 Diarrhea Qwdcvqg-LTY-TbQ Reductase AdvReac Nausea/joints Verified 04/11/23 15:36 Inhibitor ache [Yzctmiw-Uoj-Gzf Reductase Inhibitor] Family History Mother CVA (cerebral vascular accident) Diabetes Brother Heart disease of CAD at 65 Myocardial infarction Pancreatitis Father Cancer lymphomia Lymphoma Grandmother Myocardial infarction of [place] in her 70s Sister COPD (chronic obstructive pulmonary disease) Surgical History (Updated 03/30/23 @ 00:01 by Inna Vigil) H/O colectomy H/O coronary artery bypass surgery (05/18/12) H/O sinus surgery H/O total hysterectomy history closed fissure History of appendectomy History of History of cardiac catheterization History of cholecystectomy History of coronary artery stent placement (01/12/18) History of coronary artery stent placement ileostomy Ileostomy status left thumb surgery Status post total hip replacement, left Social History household members: none Smoking Status: Former smoker quit date: 03/08/12 how long ago did patient quit smoking: quit in 2012; 0.5-1ppd x 30yrs alcohol intake: never substance use type: does not use diet: diabetic caffeine: No eating out: 1-3 times/week what type of physical activity do you participate in: none seatbelt use: always do you feel safe at home: Yes Vital Signs Vital Signs Vital Signs: 04/11/23 15:34 Temperature 97.8 F Temperature Source Temporal Pulse Rate 92 Respiratory Rate 18 Blood Pressure 109/74 Blood Pressure Mean 85 Pulse Ox 95 Oxygen Delivery Method Room Air Physical Exam Const alert, oriented x3, no apparent distress, average body habitus, healthy appearing and well nourished HEENT normocephalic, head/scalp atraumatic, hearing grossly normal bilaterally, moist oral mucous membranes, oropharynx normal and dentition normal Eyes PERRL, EOMs intact bilaterally and conjunctivae normal Cardio regular rate, regular rhythm, S1 normal heart sound, S2 normal heart sound, no murmurs, no rub, no gallops, no clicks and no JVD GI soft to palpation and non-tender GI Narrative: Ostomy site present on the left periumbilical area, no pain or tenderness present. No leakage around the ostomy, no herniation. Neuro oriented x3 Psych affect normal Results Medical Records Data Attestation: I reviewed the patient's medical records Lab / Micro Data 04/11/23 17:45 04/11/23 17:45 Labs: Laboratory Results - last 24 hr 04/11/23 17:45: WBC 10.3, RBC 5.73 H, Hgb 15.0, Hct 48.6 H, MCV 84.8, MCH 26.2 L, MCHC 30.9 L, RDW Std Deviation 51.6 H, RDW Coeff of Jan 17.0 H, Plt Count 227, MPV 11.7, Immature Gran % (Auto) 0.400, Neut % (Auto) 70.2 H, Lymph % (Auto) 19.1, Cassia % (Auto) 6.3, Eos % (Auto) 3.7, Baso % (Auto) 0.3, Absolute Neuts (auto) 7.3, Absolute Lymphs (auto) 1.97, Nucleated RBC % 0, Sodium 131 L, Potassium 5.0, Chloride 107, Carbon Dioxide 16.0 L, BUN 38 H, Creatinine 3.04 H, Est GFR (MDRD) Af Amer 20 L, Est GFR (MDRD) Non-Af 16 L, BUN/Creatinine Ratio 12.5, Glucose 189 H, Calcium 10.1, Phosphorus 3.1, Magnesium 1.6, Total Bilirubin 1.20 H, Direct Bilirubin 0.28, AST 22, ALT 24, Alkaline Phosphatase 158 H, Total Protein 9.2 H, Albumin 3.7 04/11/23 17:45: Albumin 3.8, Globulin 5.5 H, Lipase 32 Assessment & Plan Assessment/Plan (1) CKD (chronic kidney disease) stage 3, GFR 30-59 ml/min: QUALIFIERS: Chronic kidney disease stage 3 subtype: stage 3b (GFR 30-44) Qualified Code(s): N18.32 - Chronic kidney disease, stage 3b PLAN: Plan 62-year-old female with ulcerative colitis s/p total colectomy with ileostomy, ongoing concerns regarding short-bowel syndrome and high ostomy output for the last few months presents to the ED with concerns regarding dehydration and RALPH on CKD. 1. High ostomy output: -Likely related to infectious diarrhea viral versus bacterial -Stool culture, stool C. difficile, stool ova parasite -IV fluids with normal saline at 100 cc/h -Continue cholestyramine and Lomotil as prescribed outpatient -Will hold initiation of antibiotics for now 2. Short-bowel syndrome: -No features of acute malnutrition at this time -Plan for Gattex initiation as an outpatient 3. RALPH on CKD -Likely prerenal in etiology -Continue fluids as above, monitor creatinine tomorrow -Input output monitoring 4. Type 2 diabetes -Presently on an insulin pump -Continue as per the pump -A1c levels 5. Coronary artery disease -Continue aspirin Plavix as outpatient 6. Gastroparesis -Will hold the Reglan for now 7. GERD continue pantoprazole 8. Chronic body aches -Continue pregabalin Charges/Coding Visit Charges Inpatient E&M: 65273 Subs Hosp L2
--- OUTSIDE RECORDS SUMMARY | 2023-04-11 18:50 | XMS RPT_ITS | CCD ---
Author Name Unknown Address [address] [place] [address] Organization [facility] Care Team Providers Care [employer] Name Role Phone GERBER, DEAN C Unavailable [...] PCP Unavailable Unavailable Oleghe, Efewongbe B Unavailable [phone] Unavailable Unavailable OLEGHE, EFEWONGBE B Primary Care Unavailable EDWIGE JOY Attending Unavailable FRIEND, JACQUELINE Zurita Referring Unavailable Allergies Allergy Classification Reported Allergen(s) Allergy Type Date of Onset Reaction(s) Facility Anticholinergics (1 source) Dicyclomine; Translations: [dicyclomine] [facility] [address] Work Phone: liraglutide (1 source) liraglutide; Translations: [Victoza SOPN] [facility] Work Phone: metFORMIN (1 source) metFORMIN; Translations: [metformin] Drug Allergy [facility] [place] [address] Work Phone: Nitroimidazoles (antibiotic) (1 source) metroNIDAZOLE; Translations: [Flagyl] Drug Allergy [place] [address] Work Phone: Penicillins (antibiotic) (1 source) Penicillins; Translations: [Penicillins] Drug Allergy [place] [address] Work Phone: Sulfonamides (antibiotic) (1 source) Sulfonamides (Antibiotic); Translations: [Sulfa Drugs] Drug Allergy [place] [address] Work Phone: Unclassified (1 source) Cinnamon Flavor OIL; Translations: [Cinnamon Flavor OIL] Allergy to drug (finding) [place] [address] Work Phone: (2 sources) cinnamon preparation; Translations: [CINNAMON] Drug Allergy [facility] Rep[facility] (2 sources) codeine; Translations: [CODEINE] Drug Allergy [facility] (4 sources) dicyclomine; Translations: [DICYCLOMINE] Drug Allergy [facility] (2 sources) influenza virus vaccine; Translations: [FLU VACC [id number] 65YR UP(PF)] Drug Allergy [facility] (2 sources) liraglutide; Translations: [LIRAGLUTIDE] Drug Allergy [facility] (2 sources) metFORMIN; Translations: [METFORMIN HCL] Drug Allergy [facility] Rep[facility] (2 sources) metroNIDAZOLE; Translations: [METRONIDAZOLE HCL] Drug Allergy [facility] Rep[facility] (4 sources) Penicillins; Translations: [PENICILLINS] Propensity to adverse reactions to drug (disorder) [facility] Rep[facility] (2 sources) sulfaSALAzine; Translations: [SULFASALAZINE] Drug Allergy [facility] (2 sources) Sulfonamides (Antibiotic); Translations: [SULFA (SULFONAMIDE ANTIBIOTICS)] Propensity to adverse reactions to drug (disorder) 9 [facility] (2 sources) INFLUENZA VIRUS VACCINES; Translations: [INFLUENZA VIRUS VACCINES] Propensity to adverse reactions [facility] drug [facility]disorder) [facility] liraglutide Drug Allergy [facility] 120 Work Phone: (2 sources) metFORMIN Drug Allergy [facility] Work Phone: (2 sources) metroNIDAZOLE Drug Allergy [facility] 120 Work Phone: (2 sources) Sulfonamides (Antibiotic) Allergy to drug (finding) [facility] 120 Work Phone: (1 source) Hmg-Coa Reductase Inhibitors (Statins); Translations: [SOHFASW-CEU-TMG REDUCTASE INHIBITORS] Propensity to adverse reactions to drug (disorder) 4 [facility] Repository (1 source) ranolazine; Translations: [RANOLAZINE] Drug Allergy [facility] Repository Medications Completed/Discontinued Medications Medication Drug [...] [Coronary atherosclerosis of unspecified type of vessel, [place] or graft] Chronic Coronary atherosclerosis and other [...] / Z87.891(ICD-10) Onset: 10-21-2016 Unclassified (1 source) terminologist (current) use of aspirin / Z79.82(ICD-10) Onset: [...] (Body Mass Index) 30.54 kg/m2 Brennan Duque [facility] 120 Work Phone: 12-20-2019 11:35-0400 Body Temperature 98.2 [degF] Brennan Duque [facility] 120 Work Phone: 12-20-2019 11:35-0400 Body weight 88.45 kg Brennan Duque [facility] Work Phone: 12-20-2019 11:35-0400 BP Diastolic 70 mm[Hg] [facility] 120 Work Phone: 12-20-2019 11:35-0400 BP Systolic 120 mm[Hg] Brennan Duque [facility] 120 Work Phone: 12-20-2019 11:35-0400 BSA (Body Surface Area) 2 m2 Brennan Duque [facility] 120 Work Phone: 12-20-2019 11:35-0400 Height 170.18 cm Brennan Duque [facility] 120 Work Phone: 11-30-2019 11:55-0400 BMI (Body Mass Index) 30.54 kg/m2 Brennan Duque [facility] 120 Work Phone: 11-30-2019 11:55-0400 Body weight 88.45 kg Brennan Duque [facility] 120 Work Phone: 11-30-2019 11:55-0400 BP Diastolic 60 mm[Hg] Brennan Duque [facility] 120 Work Phone: 11-30-2019 11:55-0400 BP Systolic 122 mm[Hg] Brennan Duque [facility] 120 Work Phone: 11-30-2019 11:55-0400 BSA (Body Surface Area) 2 m2 Brennan Duque [facility] 120 Work Phone: 11-30-2019 11:55-0400 Height 170.18 cm Brennan Duque [facility] 120 Work Phone: 11-30-2019 11:55-0400 Pulse (Heart Rate) 66 /min Brennan Duque [facility] 120 Work Phone: 11-30-2019 11:55-0400 Pulse Oximetry 96 % Brennan Duque [facility] 120 Work Phone: Encounters Encounter Date Encounter Type Care Provider Facility Start: 02-18-2022 End: 02-18-2022 ambulatory MALA MADRIGAL Facility:[facility] Start: 10-23-2020 Rx Renewal Mala Zurita Ol eghe Work Phone: [facility] Work Phone: Start: 12-20-2019 Patient encounter procedure Brennan Duque [facility] [facility] Work Phone: Start: 11-30-2019 Patient encounter procedure Brennan Duque [facility] [facility] Work Phone: Start: 07-06-2017 Ambulatory DEAN May GERBER [facility] Start: 10-21-2016 End: 10-21-2016 Ambulatory Huma Ocasio [facility] Start: 10-08-2016 Ambulatory Mean Brown Fac ility:[facility] Start: 09-03-2016 Ambulatory Alireza [facility] Procedures Date Procedure Procedure Detail [...] Brennan Duque, Status: Pen, Time: 10:00 AM [facility] Work Phone: Payers Date Payer Category Payer Unknown [id number] Unknown [id number] Unknown Social History Date Type Detail Facility Former smoker [facility] Work Phone: NEGATED: Highlighted row - - [facility] 120 Work Phone: Medical Equipment Procedure Code [...] Type Note Facility 02-18-2022 Note HNO ID: [id number] Author: Edwige Joy RD Service: ? Author [...] in the bag) Lunch - meals of [employer]/meal delivery service, meat balls and spaghetti, chicken, [...] sand which with salami, ham, cheese sometimes (botswanan, canadian) Beverages - diet coke drinks all day [...] [Metronidazole Hcl], Fluzone High-Dose (Pf) [Flu Vacc [id number] 65yr Up(Pf)], Glucophage [Metformin Hcl], Influenza Virus Vaccines, Penicillins, Ranexa [Ranolazine], Sulfa (Sulfonamide Antibiotics), Victoza [Liraglutide], and Hfoxovv-Far-Vsq Reductase Inhibitors Medications: Current Outpatient Medications Medication [...] BY MOUTH EV (more content not included)... [facility] Summary Purpose Family History No [...] DATE CREATED AUTHOR AUTHOR'S ORGANIZ ATION 08/31/2017 [facility] DATE CREATED AUTHOR AUTHOR'S ORGANIZ ATION 09/01/2017 [facility] DATE CREATED AUTHOR AUTHOR'S ORGANIZ ATION 09/01/2017 [facility] DATE CREATED AUTHOR AUTHOR'S ORGANIZ ATION 06/18/2020 [employer] DATE CREATED AUTHOR AUTHOR'S ORGANIZ ATION 02/14/2021 [facility] DATE CREATED AUTHOR AUTHOR'S ORGANIZ ATION 02/25/2022 [facility] FOR RECORDS PERTAINING TO PATIENTS [...] BE BASED ON THE PRIMARY CLINICAL RECORDS. [facility]. provides no warranty or guarantee of the accuracy or completeness of information in this document.
[2023-04-11 18:56] VITALS: BP 90/61; PULSE 88; RESP 18; O2SAT 99
--- OUTSIDE RECORDS SUMMARY | 2023-04-11 19:23 | XMS RPT_ITS | CCD ---
Author Name Unknown Address [address] [place] [address] Organization [facility] Care Team Providers Care Oscillograph Technician Name Role Phone GERBER, DEAN C Unavailable [...] PCP Unavailable Unavailable Oleghe, Efewongbe B Unavailable [phone] Unavailable Unavailable OLEGHE, EFEWONGBE B Primary Care Unavailable EDWIGE JOY Attending Unavailable FRIEND, JACQUELINE Zurita Referring Unavailable Allergies Allergy Classification Reported Allergen(s) Allergy Type Date of Onset Reaction(s) Facility Anticholinergics (1 source) Dicyclomine; Translations: [dicyclomine] Drug Allergy [facility] [place] [address] Work Phone: liraglutide (1 source) liraglutide; Translations: [Victoza SOPN] Drug [facility]ergy [facility] Work Phone: metFORMIN (1 source) metFORMIN; Translations: [metformin] Drug Allergy [facility] [place] [address] Work Phone: Nitroimidazoles (antibiotic) (1 source) metroNIDAZOLE; Translations: [Flagyl] Drug Allergy [place] [address] Work Phone: Penicillins (antibiotic) (1 source) Penicillins; Translations: [Penicillins] Drug Allergy [place] [address] Work Phone: Sulfonamides (antibiotic) (1 source) Sulfonamides (Antibiotic); Translations: [Sulfa Drugs] Drug Allergy [place] [address] Work Phone: Unclassified (1 source) Cinnamon Flavor OIL; Translations: [Cinnamon Flavor OIL] Allergy to drug (finding) [place] [address] Work Phone: (2 sources) cinnamon preparation; Translations: [CINNAMON] Drug Allergy 9 [facility] Rep[facility] (2 sources) codeine; Translations: [CODEINE] Drug Allergy 9 [facility] Rep[facility] (4 sources) dicyclomine; Translations: [DICYCLOMINE] Drug Allergy 4 [facility] Rep[facility] (2 sources) influenza virus vaccine; Translations: [FLU VACC [id number] 65YR UP(PF)] Drug Allergy 6 [facility] Rep[facility] (2 sources) liraglutide; Translations: [LIRAGLUTIDE] Drug Allergy 7 [facility] Rep[facility] (2 sources) metFORMIN; Translations: [METFORMIN HCL] Drug Allergy 4 [facility] Rep[facility] (2 sources) metroNIDAZOLE; Translations: [METRONIDAZOLE HCL] Drug Allergy 4 [facility] Rep[facility] (4 sources) Penicillins; Translations: [PENICILLINS] Propensity to adverse reactions to drug (disorder) 9 [facility] Rep[facility] (2 sources) sulfaSALAzine; Translations: [SULFASALAZINE] Drug Allergy 9 [facility] Rep[facility] (2 sources) Sulfonamides (Antibiotic); Translations: [SULFA (SULFONAMIDE ANTIBIOTICS)] Propensity to adverse reactions to drug (disorder) 9 [facility] Rep[facility] (2 sources) INFLUENZA VIRUS VACCINES; Translations: [INFLUENZA VIRUS VACCINES] Propensity to adverse reactions [facility] drug [facility]disorder) [facility] liraglutide Drug Allergy [facility] 120 Work Phone: (2 sources) metFORMIN Drug Allergy [facility] Work Phone: (2 sources) metroNIDAZOLE Drug Allergy [facility] 120 Work Phone: (2 sources) Sulfonamides (Antibiotic) Allergy to drug (finding) [facility] 120 Work Phone: (1 source) Hmg-Coa Reductase Inhibitors (Statins); Translations: [UXFUJWF-UNV-JOG REDUCTASE INHIBITORS] Propensity to adverse reactions to drug (disorder) 4 [facility] Repository (1 source) ranolazine; Translations: [RANOLAZINE] Drug Allergy 9 [facility] Repository Medications Completed/Discontinued Medications Medication [...] [Coronary atherosclerosis of unspecified type of vessel, [place] ira or graft] Chronic Coronary atherosclerosis and other [...] / Z87.891(ICD-10) Onset: 10-21-2016 Unclassified (1 source) 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 120 Work Phone: 12-20-2019 11:35-0400 BP Systolic 120 mm[Hg] Brennan Duque [facility] 120 Work Phone: 12-20-2019 11:35-0400 BSA (Body Surface Area) 2 m2 Brennan Duque [facility] 120 Work Phone: 12-20-2019 11:35-0400 Height 170.18 cm Brennan Duque [facility] 120 Work Phone: 11-30-2019 11:55-0400 BMI (Body Mass Index) 30.54 kg/m2 Brennan Duque [facility] 120 Work Phone: 11-30-2019 11:55-0400 Body weight 88.45 kg Brennan Duque [facility] 120 Work Phone: 11-30-2019 11:55-0400 BP Diastolic 60 mm[Hg] Brennan Duque [facility] 120 Work Phone: 11-30-2019 11:55-0400 BP Systolic 122 mm[Hg] Brennan Duque [facility] 120 Work Phone: 11-30-2019 11:55-0400 BSA (Body Surface Area) 2 m2 Brennan Duque [facility] 120 Work Phone: 11-30-2019 11:55-0400 Height 170.18 cm Brennan Duque [facility] 120 Work Phone: 11-30-2019 11:55-0400 Pulse (Heart Rate) 66 /min Brennan Duque [facility] 120 Work Phone: 11-30-2019 11:55-0400 Pulse Oximetry 96 % Brennan Duque [facility] 120 Work Phone: Encounters Encounter Date Encounter Type Care Provider Facility Start: 02-18-2022 End: 02-18-2022 ambulatory MALA MADRIGAL Facility:[facility] Start: 10-23-2020 Rx Renewal Mala Zurita [place] Work Phone: [facility] Work Phone: Start: 12-20-2019 Patient encounter procedure Brennan Duque [facility] [facility] Work Phone: Start: 11-30-2019 Patient encounter procedure Brennan Duque [facility] [facility] 120 Work Phone: Start: 07-06-2017 [address] GER[address] [facility] Start: 10-21-2016 End: 10-21-2016 Ambulatory Huma Ocasio Facility:[facility] Start: 10-08-2016 Ambulatory Mena Brown Fac ility:[facility] Start: 09-03-2016 Ambulatory [facility] Procedures Date Procedure Procedure Detail Performing Clinician Start: 11-30-2019 Alpha-fetoprotein serum Brennan Duque Start: 11-30-2019 Assay of ferritin Brennan Duque Start: 11-30-2019 Blood count complete auto&auto difrntl wbc Brennan Duque Start: 11-30-2019 C-reactive protein Brennan Duque Start: 11-30-2019 Carcinoembryonic antigen cea Bernnan Duque Start: 11-30-2019 CELIAC DISEASE SEROLOGY PANEL [...] Activity Detail Author Start: 12-16-2020 FUV, Provider: Brennna Duque, Status: Pen, Time: 10:00 AM FUV, Provider: Brennan Duque, Status: Pen, Time: 10:00 AM [facility] Work Phone: Payers Date Payer Category Payer Unknown [id number] Unknown [id number] Unknown Social History Date Type Detail Facility [facility] sm[facility] Work Phone: NEGATED: Highlighted row - - [facility] 120 Work Phone: Medical Equipment [...] Type Note Facility 02-18-2022 Note HNO ID: [id number] Author: Edwige Joy RD Service: ? Author [...] in the bag) Lunch - meals of [employer]/meal delivery service, meat balls and spaghetti, chicken, [...] sand which with salami, ham, cheese sometimes (montserratian, fijian) Beverages - diet coke drinks all day [...] [Metronidazole Hcl], Fluzone High-Dose (Pf) [Flu Vacc [id number] 65yr Up(Pf)], Glucophage [Metformin Hcl], Influenza Virus Vaccines, Penicillins, Ranexa [Ranolazine], Sulfa (Sulfonamide Antibiotics), Victoza [Liraglutide], and Unqqjuo-Sgu-Qsu Reductase Inhibitors Medications: Current Outpatient Medications Medication [...] BY MOUTH EV (more content not included)... [facility] Summary Purpose Family History No [...] DATE CREATED AUTHOR AUTHOR'S ORGANIZ ATION 08/31/2017 [facility] DATE CREATED AUTHOR AUTHOR'S ORGANIZ ATION 09/01/2017 [facility] DATE CREATED AUTHOR AUTHOR'S ORGANIZ ATION 09/01/2017 [facility] DATE CREATED AUTHOR AUTHOR'S ORGANIZ ATION 06/18/2020 [employer] DATE CREATED AUTHOR AUTHOR'S ORGANIZ ATION 02/14/2021 [facility] DATE CREATED AUTHOR AUTHOR'S ORGANIZ ATION 02/25/2022 [facility] FOR RECORDS PERTAINING TO PATIENTS [...] BE BASED ON THE PRIMARY CLINICAL RECORDS. [facility] [employer] [facility]. provides no warranty or guarantee of the accuracy or completeness of information in this document.
[2023-04-11 19:55] VITALS: BMI 30.9
[2023-04-11 19:58] VITALS: BP 155/79; PULSE 90; RESP 18; TEMP 36.5; O2SAT 93
[2023-04-11] MEDS: 0.9% Normal Saline (1000mL) 1,000 ML 100 ML IV (20:06)
[2023-04-11] MEDS: traZODone 50 MG Tablet PO (22:56)
[2023-04-11] MEDS: MELATONIN 10 MG TABLET 5 MG PO (22:56)
[2023-04-11] MEDS: Isosorbide DN 30 MG Tablet PO (22:56)
[2023-04-11] MEDS: Pregabalin 75 MG Capsule PO (22:58)
[2023-04-11 22:59] VITALS: BP 155/67; PULSE 95
[2023-04-11] MEDS: Diphenoxylate/Atrop 1 Tablet PO (22:59)
[2023-04-11] MEDS: Atorvastatin Calcium 80 MG Tablet PO (22:59)
[2023-04-11] MEDS: Metoprolol Tartrate 25 MG Tablet 75 MG PO (22:59)
[2023-04-11] MEDS: Pantoprazole Sodium 40 MG Tablet PO (22:59)
[2023-04-11 23:24] VITALS: BP 155/67; PULSE 95; RESP 20; TEMP 36.1; O2SAT 99
--- NOTE | 2023-04-11 23:58 | CT_ITS ---
INDICATION: hit head EXAMINATION: CT BRAIN - CT Head or Brain W/O Contrast Injection TECHNIQUE: Multiple axial images were obtained of the head without intravenous contrast. A radiation dose optimization technique was used for this scan. IV Contrast dosage and agent: None. RADIATION DOSAGE (If Supplied By Facility): CTDIvol = ( 44.99 ) mGy, DLP = ( 829.85 ) mGycm COMPARISON: 7. FINDINGS: BRAIN PARENCHYMA: No intra- or extra-axial hemorrhage. No evidence of acute infarct. No intracranial mass or mass effect. There is preservation of the posey/white matter interface. Posterior fossa structures are unremarkable. Patchy periventricular and deep white matter hypoattenuation is consistent with mild small vessel ischemic change. CSF SPACES: No cerebral volume loss. No hydrocephalus. Basal cisterns are patent. CALVARIUM, SKULL BASE, PARANASAL SINUSES AND MASTOID AIR CELLS: Previous right mastoidectomy. Left mastoid air cells are clear. Small right maxillary mucous retention cyst and trace fluid in the sphenoid chamber is. Remaining paranasal sinuses are clear. Calvarium intact. ORBITS: Both globes, extraocular muscles, optic nerves and retrobulbar fat appear unremarkable. CT/Brain/Head without Contrast IMPRESSION: No acute intracranial finding. Electronically Signed: Michael Leyva MD at 1:50 EST ,
[2023-04-12] VITALS (7 sets, daily range): BP systolic 94–127; BP diastolic 50–57; PULSE 81–93; RESP 16–18; TEMP 36.3–36.8; O2SAT 93–99
[2023-04-12 06:15] LABS: Absolute Lymphocyte Count 4.29 X10^3/uL (0.83-4.51); Absolute Neutrophil Count 9.6 X10^3/uL (2.0-7.7); Basophil# 0.04 X10^3/uL; Basophil% 0.3 % (0-1); Eosinophil# 0.91 X10^3/uL; Eosinophils% 5.7 % (0-5); Hematocrit 41.9 % (37-47); Hemoglobin 13.2 g/dL (12.0-15.0); Lymphocyte # 4.29 X10^3/ul (0.83-4.51); Lymphocyte % 26.9 % (19-41); Mean Corp Hgb Conc 31.5 g/dL (32-36); Mean Corpuscular Hgb 26.9 pg (27.0-32.0); Mean Corpuscular Volume 85.5 fL (81-99); Mean Platelet Vol. 11.5 fl (6.2-12.0); Monocyte# 1.03 X10^3/uL; Monocyte% 6.5 % (0-10); NRBC Flagged by Analyzer 0.1 % (0-5); Neutrophil # 9.61 X10^3/uL (2.7-7.7); Neutrophil % 60.1 % (47-70); Platelet Count 222 K/mm3 (150-450); RBC Distribution Width CV 17.1 % (11.6-14.6)
[2023-04-12] MEDS: 0.9% Normal Saline (1000mL) 1,000 ML 100 ML IV ×2 (07:03→18:34)
[2023-04-12] MEDS: Diphenoxylate/Atrop 1 Tablet PO ×3 (07:04→23:14)
[2023-04-12] MEDS: 0.9% Saline Lock 10 ML Syringe IV (07:04)
[2023-04-12] MEDS: Cholestyramine/Sucrose 4 GM/PACKET PO ×2 (07:04→18:35)
[2023-04-12] MEDS: Dicyclomine 10 MG Capsule 20 MG PO (07:04)
[2023-04-12 07:05] LABS: ALB/GLOB Ratio 0.6 RATIO (0.9-2.4); AST(SGOT) 16 U/L (15-37); Alanine Aminotransfer ALT/SGPT 21 U/L (13-56); Albumin, Serum 2.9 g/dL (3.2-5.0); Alkaline Phosphatase 115 U/L (45-117); Anion Gap 6 (5-15); BUN 42 mg/dL (7-18); BUN/Creat Ratio 9.6 RATIO (10-20); Chloride 111 mmol/L (98-107); Creatinine, Serum 4.36 mg/dL (0.55-1.02); EST Glomerular Filtration Rate 11 mL/min (>60); Est Glom Filt Rate - Afr Amer 13 mL/min (>60); Estimated Creatinine Clearance 14.98 ml/min; Globulin 4.7 g/dL (2.2-4.2); Glucose 111 mg/dL (74-106); Magnesium 1.4 mg/dL (1.6-2.6); Phosphorus 3.7 mg/dL (2.5-4.9); Potassium 4.7 mmol/L (3.5-5.1); Protein, Total 7.6 g/dL (6.4-8.2); Sodium Level 135 mmol/L (136-145); Thyroid Stim Hormone (TSH) 1.68 uIU/mL (0.358-3.74)
--- NOTE | 2023-04-12 07:40 | PCM.PN.HOSP ---
Reason for Visit Reason for Visit: Diagnoses Chronic kidney disease, stage 3b (04/11/23) Subjective Subjective Patient is a 62-year-old female with extensive GI history including gastroparesis, nonalcoholic fatty liver disease, ileostomy with short gut syndrome presented with nausea vomiting and diarrhea Objective Data Objective Data Vital Signs: Vital Signs Temp Pulse Resp BP Pulse Ox O2 Del Method 97.4 F L 86 18 95/55 L 94 Room Air 04/12/23 06:55 04/12/23 06:55 04/12/23 06:55 04/12/23 06:55 04/12/23 06:55 04/12/23 06:55 Oxygen Delivery Method Room Air Weight: 89.6 kg Body Mass Index (BMI) 30.9 Intake & Output: Intake and Output for Last 24 Hours 04/10/23 04/11/23 04/12/23 23:59 23:59 23:59 Intake Total 1000 / 1000 1000 / 1000 Output Total 500 / 500 Balance 1000 / 500 500 / 500 Lab / Micro Data 04/12/23 05:42 04/12/23 05:42 Labs: Laboratory Results - last 24 hr 04/11/23 17:45: WBC 10.3, RBC 5.73 H, Hgb 15.0, Hct 48.6 H, MCV 84.8, MCH 26.2 L, MCHC 30.9 L, RDW Std Deviation 51.6 H, RDW Coeff of Jan 17.0 H, Plt Count 227, MPV 11.7, Immature Gran % (Auto) 0.400, Neut % (Auto) 70.2 H, Lymph % (Auto) 19.1, [place] % (Auto) 6.3, Eos % (Auto) 3.7, Baso % (Auto) 0.3, Absolute Neuts (auto) 7.3, Absolute Lymphs (auto) 1.97, Nucleated RBC % 0, Sodium 131 L, Potassium 5.0, Chloride 107, Carbon Dioxide 16.0 L, BUN 38 H, Creatinine 3.04 H, Est GFR (MDRD) Af Amer 20 L, Est GFR (MDRD) Non-Af 16 L, BUN/Creatinine Ratio 12.5, Glucose 189 H, Calcium 10.1, Phosphorus 3.1, Magnesium 1.6, Total Bilirubin 1.20 H, Direct Bilirubin 0.28, AST 22, ALT 24, Alkaline Phosphatase 158 H, Total Protein 9.2 H, Albumin 3.7 04/11/23 17:45: Albumin 3.8, Globulin 5.5 H, Lipase 32 04/12/23 05:42: WBC 16.0 H, RBC 4.90, Hgb 13.2, Hct 41.9, MCV 85.5, MCH 26.9 L, MCHC 31.5 L, RDW Std Deviation 53.0 H, RDW Coeff of Jan 17.1 H, Plt Count 222, MPV 11.5, Immature Gran % (Auto) 0.500, Neut % (Auto) 60.1, Lymph % (Auto) 26.9, [place] % (Auto) 6.5, Eos % (Auto) 5.7 H, Baso % (Auto) 0.3, Absolute Neuts (auto) 9.6 H, Absolute Lymphs (auto) 4.29, Nucleated RBC % 0.1, Sodium 135 L, Potassium 4.7, Chloride 111 H, Carbon Dioxide 18.0 L, Anion Gap 6, BUN 42 H, Creatinine 4.36 H, Estim Creat Clear Calc 14.98, Est GFR (MDRD) Af Amer 13 L, Est GFR (MDRD) Non-Af 11 L, BUN/Creatinine Ratio 9.6 L, Glucose 111 H, Calcium 9.0, Phosphorus 3.7, Magnesium 1.4 L, Total Bilirubin 1.20 H, AST 16, ALT 21, Alkaline Phosphatase 115, Total Protein 7.6, Albumin 2.9 L, Globulin 4.7 H, Albumin/Globulin Ratio 0.6 L, TSH 1.68 Micro: Microbiology 04/11/23 20:10 Stool Clostridioides difficile (PCR) - Final Radiography Diagnostic Testing: Radiology Impression Brain CT 04/11/23 23:58 IMPRESSION: No acute intracranial finding. Electronically Signed: Michael Leyva MD at 1:50 EST , Physical Exam Narrative GENERAL: cooperative HEENT: Atraumatic; normocephalic EYES; Anicteric, Normal Conjunctiva NECK; supple, normal thyroid, RESPIRATORY: Diminished to auscultation CARDIOVASCULAR: Regular S1 S2, GI: soft, normoactive bowel sounds, : No Renal angle tenderness; EXTREMITIES: No edema, no clubbing, MUSCULOSKELETAL: no muscle wasting NEURO: Awake; no lateralizing signs. SKIN: No Rash PSYCH; Flat affect Assessment & Plan Assessment/Plan (1) CKD (chronic kidney disease) stage 3, GFR 30-59 ml/min: QUALIFIERS: Chronic kidney disease stage 3 subtype: stage 3b (GFR 30-44) Qualified Code(s): N18.32 - Chronic kidney disease, stage 3b PLAN: Plan Patient is a 62-year-old female with extensive GI history including gastroparesis, nonalcoholic fatty liver disease, ileostomy with short gut syndrome presented with nausea vomiting and diarrhea 1. Dehydration ? Secondary to high ostomy output. Admitted to regular nursing floor. Managed with IV fluids. Stool sent for ova parasite as well as C. difficile. Patient is on cholestyramine as well as Lomotil as outpatient did continue 2.Acute kidney injury ? Superimposed on chronic kidney disease stage III. Baseline creatinine 1.8, creatinine on admission was 3.04 did rise to 4.36 on IV fluid with subsequent monitoring of electrolytes 3. Diabetes mellitus type 2 ? Patient is on insulin pump plan is for patient to continue 4. Gastroparesis ? Patient is on Reglan as outpatient currently being held 5. GERD ? On PPI 6. Coronary artery disease -Has history of CABG and subsequent stent placement. Patient is on guideline directed medical therapy 7. MGUS ? Patient is followed by oncology as outpatient 8. History of ulcerative colitis ? Status post ileostomy with resultant short gut syndrome 9. Essential hypertension ? Patient antihypertensives held given her relatively low blood pressure 10. Chronic pain syndrome ? Patient is on buprenorphine 11. Depression ? Patient is on duloxetine 12. Psoriasis ? Patient had previously been treated with Humira taking off during the COVID pandemic 13. Hypomagnesemia ? Secondary to patient high output ileostomy corrected per protocol repeat magnesium and phosphorus ordered for a.m. 14. DVT prophylaxis - On enoxaparin, dose adjusted for kidney function Time spent in the patient's overall evaluation,decision-making process, review of diagnostic data, adjustment of management, discussion with other providers, nursing nursing and ancillary staff involved in patient's care documentation, 50 Minutes Charges/Coding Visit Charges Inpatient E&M: [id number] [place] [address]
[2023-04-12] MEDS: Pregabalin 75 MG Capsule PO ×2 (08:49→23:11)
[2023-04-12] MEDS: DULoxetine Hcl 30 MG Capsule 90 MG PO (08:50)
[2023-04-12] MEDS: Pantoprazole Sodium 40 MG Tablet PO ×2 (08:50→23:08)
[2023-04-12] MEDS: Aspirin E.C. 81 MG Tablet PO (08:50)
[2023-04-12] MEDS: lamoTRIgine 100 MG Tablet 200 MG PO ×2 (08:50→23:08)
[2023-04-12] MEDS: Clopidogrel Bisulfate 75 MG Tablet PO (08:50)
[2023-04-12] MEDS: Enoxaparin 30 MG/0.3 ML Syringe SC (08:51)
[2023-04-12 12:11] LABS: Bedside Glucose 133 mg/dL (74-106)
--- NOTE | 2023-04-12 12:43 | WOUNDNOTE ---
Pt resting in bed with eyes closed. ostomy appliance intact. no sign of leak noted. will talk with patient when awake to be sure she was able to get her supply order switched to [facility] since [facility] no longer takes her insurance.
[2023-04-12] MEDS: Magnesium Sulfate 2 GM in Dextrose 5%-Water (100mL Bag) 100 ML IV (14:12)
[2023-04-12] MEDS: Magnesium Chloride 64 MG Delay Rel.Tablet 128 MG PO ×2 (14:13→23:08)
--- NOTE | 2023-04-12 16:00 | CASEMGMT ---
RN CM chart review: Patient was admitted 03/19-03/22/23 for high ileostomy output and dehydration. See RN CM assessment from 03/20/23. Patient was discharged go home with follow-up plans in place. Patient returned 04/11/23 for N/V/D and admitted for dehydration. RN CM in to discuss readmission and needs at discharge. Patient states she was taking medications as prescribed. Patient attended follow-up appts with Dr. Andino on 03/31/[address] Mcgrath on 03/29/23. Patient has been attending medical hydration weekly on Fridays. Patient denies needs at discharge. CM will continue to follow this patient and plan for a safe discharge.
--- NOTE | 2023-04-12 22:30 | NURSING ---
Pts blood sugar taken from patients insulin pump is 141.
[2023-04-12] MEDS: traZODone 50 MG Tablet PO (23:08)
[2023-04-12] MEDS: Atorvastatin Calcium 80 MG Tablet PO (23:08)
[2023-04-12] MEDS: MELATONIN 10 MG TABLET 5 MG PO (23:10)
[2023-04-12] MEDS: Metoprolol Tartrate 25 MG Tablet 75 MG PO (23:11)
[2023-04-12] MEDS: Isosorbide DN 30 MG Tablet PO (23:11)
[2023-04-13] VITALS (8 sets, daily range): BP systolic 113–149; BP diastolic 53–78; PULSE 67–98; RESP 14–18; TEMP 36.3–36.6; O2SAT 94–97
[2023-04-13] MEDS: 0.9% Normal Saline (1000mL) 1,000 ML 100 ML IV (03:37)
[2023-04-13] MEDS: Diphenoxylate/Atrop 1 Tablet PO ×3 (06:36→22:58)
[2023-04-13] MEDS: Cholestyramine/Sucrose 4 GM/PACKET PO ×2 (06:36→16:05)
[2023-04-13 06:57] LABS: Absolute Lymphocyte Count 2.71 X10^3/uL (0.83-4.51); Absolute Neutrophil Count 6.4 X10^3/uL (2.0-7.7); Basophil# 0.03 X10^3/uL; Basophil% 0.3 % (0-1); Eosinophil# 0.87 X10^3/uL; Hematocrit 37.8 % (37-47); Hemoglobin 11.9 g/dL (12.0-15.0); Lymphocyte # 2.71 X10^3/ul (0.83-4.51); Mean Corp Hgb Conc 31.5 g/dL (32-36); Mean Corpuscular Hgb 26.6 pg (27.0-32.0); Mean Corpuscular Volume 84.4 fL (81-99); Mean Platelet Vol. 12.4 fl (6.2-12.0); Monocyte# 0.77 X10^3/uL; Monocyte% 7.1 % (0-10); NRBC Flagged by Analyzer 0 % (0-5); Neutrophil # 6.37 X10^3/uL (2.7-7.7); Neutrophil % 58.6 % (47-70); Platelet Count 185 K/mm3 (150-450); RBC Distribution Width CV 17.1 % (11.6-14.6); RBC Distribution Width SD 52.5 fl (35.1-43.9); Red Blood Count 4.48 M/mm3 (4.2-5.4); White Blood Count 10.9 K/mm3 (4.4-11.0)
[2023-04-13 07:35] LABS: Anion Gap 6 (5-15); BUN 47 mg/dL (7-18); BUN/Creat Ratio 10.8 RATIO (10-20); Calcium,Total 8.8 mg/dL (8.5-10.1); Chloride 114 mmol/L (98-107); Creatinine, Serum 4.36 mg/dL (0.55-1.02); EST Glomerular Filtration Rate 11 mL/min (>60); Est Glom Filt Rate - Afr Amer 13 mL/min (>60); Estimated Creatinine Clearance 14.98 ml/min; Glucose 144 mg/dL (74-106); Magnesium 2.1 mg/dL (1.6-2.6); Phosphorus 4.5 mg/dL (2.5-4.9); Potassium 4.1 mmol/L (3.5-5.1); Sodium Level 135 mmol/L (136-145)
[2023-04-13] MEDS: Empagliflozin 25 MG Tablet PO (09:25)
[2023-04-13] MEDS: Pantoprazole Sodium 40 MG Tablet PO ×2 (09:25→22:58)
[2023-04-13] MEDS: DULoxetine Hcl 30 MG Capsule 90 MG PO (09:25)
[2023-04-13] MEDS: Enoxaparin 30 MG/0.3 ML Syringe SC (09:25)
[2023-04-13] MEDS: Clopidogrel Bisulfate 75 MG Tablet PO (09:25)
[2023-04-13] MEDS: Metoprolol Tartrate 25 MG Tablet 75 MG PO ×2 (09:25→22:59)
[2023-04-13] MEDS: Pregabalin 75 MG Capsule PO (09:25)
[2023-04-13] MEDS: Magnesium Chloride 64 MG Delay Rel.Tablet 128 MG PO (09:26)
[2023-04-13] MEDS: Aspirin E.C. 81 MG Tablet PO (09:26)
[2023-04-13] MEDS: Isosorbide DN 30 MG Tablet PO ×2 (09:26→22:58)
--- NOTE | 2023-04-13 10:18 | PN.HOSP_ITS ---
Reason for Visit Reason for Visit: Diagnoses Chronic kidney disease, stage 3b (04/11/23) Subjective Subjective Patient seen no significant change in kidney function. Still has significant loose bowel movement through the ileostomy. Did increase patient IV fluids, ordered renal ultrasound and consulted nephrology Objective Data Objective Data Vital Signs: Vital Signs Temp Pulse Resp BP Pulse Ox O2 Del Method 97.4 F L 76 18 147/67 H 96 Room Air 04/13/23 09:00 04/13/23 09:25 04/13/23 09:00 04/13/23 09:00 04/13/23 09:00 04/13/23 09:00 Oxygen Delivery Method Room Air Weight: 89.6 kg Body Mass Index (BMI) 30.9 Intake & Output: Intake and Output for Last 24 Hours 04/11/23 04/12/23 04/13/23 23:59 23:59 23:59 Intake Total 1000 / 1000 2369 / 2369 905 / 905 Output Total 1400 / 1400 Balance 1000 / 500 969 / 969 905 / 905 Lab / Micro Data 04/13/23 06:02 04/13/23 06:02 Labs: Laboratory Results - last 24 hr 04/12/23 11:46: POC Glucose 133 H 04/13/23 06:02: WBC 10.9, RBC 4.48, Hgb 11.9 L, Hct 37.8, MCV 84.4, MCH 26.6 L, MCHC 31.5 L, RDW Std Deviation 52.5 H, RDW Coeff of Jan 17.1 H, Plt Count 185, MPV 12.4 H, Immature Gran % (Auto) 1.000 H, Neut % (Auto) 58.6, Lymph % (Auto) 25.0, [place] % (Auto) 7.1, Eos % (Auto) 8.0 H, Baso % (Auto) 0.3, Absolute Neuts (auto) 6.4, Absolute Lymphs (auto) 2.71, Nucleated RBC % 0, Sodium 135 L, Potassium 4.1, Chloride 114 H, Carbon Dioxide 15.0 L, Anion Gap 6, BUN 47 H, Creatinine 4.36 H, Estim Creat Clear Calc 14.98, Est GFR (MDRD) Af Amer 13 L, Est GFR (MDRD) Non-Af 11 L, BUN/Creatinine Ratio 10.8, Glucose 144 H, Calcium 8.8, Phosphorus 4.5, Magnesium 2.1 Micro: Microbiology 04/11/23 20:10 Stool Enteric Bacteriology - Final 04/11/23 20:10 Stool Clostridioides difficile (PCR) - Final Physical Exam Narrative GENERAL: cooperative HEENT: Atraumatic; normocephalic EYES; Anicteric, Normal Conjunctiva NECK; supple, normal thyroid, RESPIRATORY: Diminished to auscultation CARDIOVASCULAR: Regular S1 S2, GI: soft, normoactive bowel sounds, : No Renal angle tenderness; EXTREMITIES: No edema, no clubbing, MUSCULOSKELETAL: no muscle wasting NEURO: Awake; no lateralizing signs. SKIN: No Rash PSYCH; Flat affect Assessment & Plan Assessment/Plan (1) CKD (chronic kidney disease) stage 3, GFR 30-59 ml/min: QUALIFIERS: Chronic kidney disease stage 3 subtype: stage 3b (GFR 30-44) Qualified Code(s): N18.32 - Chronic kidney disease, stage 3b PLAN: Plan Patient is a 62-year-old female with extensive GI history including gastroparesis, nonalcoholic fatty liver disease, ileostomy with short gut syndrome presented with nausea vomiting and diarrhea 1. Dehydration ? Secondary to high ostomy output. Admitted to regular nursing floor. Managed with IV fluids. Stool sent for ova parasite as well as C. difficile. Patient is on cholestyramine as well as Lomotil as outpatient did continue 2.Acute kidney injury ? Superimposed on chronic kidney disease stage III. Baseline creatinine 1.8, creatinine on admission was 3.04 did rise to 4.36 on IV fluid with subsequent monitoring of electrolytes ? 04/13/2023;Patient seen no significant change in kidney function. Still has significant loose bowel movement through the ileostomy. Did increase patient IV fluids, ordered renal ultrasound and consulted nephrology 3. Diabetes mellitus type 2 ? Patient is on insulin pump plan is for patient to continue 4. Gastroparesis ? Patient is on Reglan as outpatient currently being held 5. GERD ? On PPI 6. Coronary artery disease -Has history of CABG and subsequent stent placement. Patient is on guideline directed medical therapy 7. MGUS ? Patient is followed by oncology as outpatient 8. History of ulcerative colitis ? Status post ileostomy with resultant short gut syndrome 9. Essential hypertension ? Patient antihypertensives held given her relatively low blood pressure 10. Chronic pain syndrome ? Patient is on buprenorphine 11. Depression ? Patient is on duloxetine 12. Psoriasis ? Patient had previously been treated with Humira taking off during the COVID pandemic 13. Hypomagnesemia ? Secondary to patient high output ileostomy corrected per protocol repeat magnesium and phosphorus ordered for a.m. 14. DVT prophylaxis - On enoxaparin, dose adjusted for kidney function Time spent in the patient's overall evaluation,decision-making process, review of diagnostic data, adjustment of management, discussion with other providers, nursing nursing and ancillary staff involved in patient's care documentation, 50 Minutes Charges/Coding Visit Charges Inpatient E&M: [id number] [facility] L[facility]
--- NOTE | 2023-04-13 10:19 | US_ITS ---
PROCEDURE: RENAL ULTRASOUND - COMPLETE REASON FOR EXAM: Female, 62 years old. Acute kidney injury TECHNIQUE: Ultrasound evaluation of the bilateral kidneys was performed with real-time ultrasonography and static grayscale imaging. COMPARISON: 01/05/2023 FINDINGS: RIGHT KIDNEY: Normal location of the right kidney which is normal in size. The right kidney measures 11.2 x 4.8 x 5.3 cm. There is a normal cortex of the right kidney. The renal cortex measures 1.8 cm. There is no right renal mass or cyst. There are no right renal calculi. There is no right hydronephrosis. DISTAL RIGHT URETER: There is non-visualization of the distal right ureter. There is no demonstrated right ureterovesical junction calculus. There is no demonstrated right ureteral jet. LEFT KIDNEY: Normal location of the left kidney which is normal in size. The left kidney measures 11.8 x 4.9 x 6.2 cm. There is a normal cortex of the left kidney. The renal cortex measures 1.9 cm. There is no left renal mass or cyst. There again is a 2.1 cm cyst in the lower pole of the left kidney appears to be simple and no further follow-up exam is needed. There is no left hydronephrosis. DISTAL LEFT URETER: There is non-visualization of the distal left ureter. There is no demonstrated left ureterovesical junction calculus. There is no demonstrated left ureteral jet. BLADDER: The distended urinary bladder has a volume of 47 ml. The bladder is not well distended. US/Kidney and Bladder IMPRESSION: 1. No evidence of hydronephrosis. 2. Simple left renal cyst Electronically Signed: Vishal Porter MD at 14:55 EST ,
[2023-04-13] MEDS: Lactated Ringers 1,000 ML 200 ML IV ×3 (12:06→21:06)
[2023-04-13] MEDS: LACTATED RINGERS 500 ML 999 ML IV (12:06)
--- NOTE | 2023-04-13 12:22 | CON.PCM.RE_ITS ---
Assessment & Plan Assessment/Plan (1) RALPH (acute kidney injury): PLAN: Baseline creatinine is around 1.6-2.0. Usually has RALPH in the setting of volume depletion. Apparently was emptying ileostomy bag almost every half an hour. As of yesterday, she is emptying it around every 2 hours. Ileostomy output has improved. Clinically looks pretty dry. Metabolic acidosis. Likely due to ileostomy. Plan Change IV fluids to Ringer's lactate, give a small bolus and then start maintenance Clinically she has significant tremors which I suspect is related to Lyrica accumulation in the setting of RALPH. I will temporarily hold Lyrica Hold SGLT2 inhibitors to avoid volume depletion Will hold oral magnesium to avoid exacerbating ileostomy output Replete IV magnesium as needed HPI Consult Data Date of Consult: 04/13/23 HPI Narrative Reason for Consultation: Acute renal failure HPI Narrative: ASHLEY MÉNDEZ, is a 62 F who presents to the hospital with massive ileostomy output she is well-known to me from previous office visits. History of CKD stage IIIb, baseline creatinine between 1.5-2.0. She has known history of ileostomy, has had issues with high output ileostomy on and off. Follows with gastroenterology. Recently was started on Questran. Presented with above complaints. She says she has not been voiding much urine for the last 2 days. No one else around her sick. No new medications other than Colesytramine. [facility] Medical History (Updated 04/11/23 @ 20:[address] Jaylin Peres, DO) Acute kidney injury Anxiety Anxiety and depression Arthritis Avascular necrosis of bone of left hip BiPAP (biphasic positive airway pressure) dependence BMI 31.0-31.9,adult CAD (coronary artery disease) Cardiology follow-up encounter Cellulitis, abdominal wall Chronic back pain Chronic diastolic (congestive) heart failure Chronic narcotic use Chronic pain Chronic respiratory failure Chronic respiratory failure with hypoxia, on home O2 therapy CKD (chronic kidney disease), stage IV Congestive heart failure (CHF) COPD (chronic obstructive pulmonary disease) COPD (chronic obstructive pulmonary disease) Depression Depression with anxiety Diabetic gastroparesis DM2 (diabetes mellitus, type 2) Elevated anti-tissue transglutaminase (tTG) IgA level Fatty liver FCHL (familial combined hyperlipidemia) Former smoker Gastric reflux Gastroparesis High output ileostomy History of CAD (coronary artery disease) History of COVID-19 Hx of diabetic gastroparesis Hyperlipidemia Hypertension Ileostomy present Insulin dependent diabetes mellitus Left shoulder pain Liver mass Loss of hearing Malaise and fatigue Menieres disease MGUS (monoclonal gammopathy of unknown significance) Migraine headache Myoclonic jerking Non-alcoholic fatty liver disease Nonalcoholic steatohepatitis Obesity Obstructive sleep apnea Psoriasis Rheumatoid arthritis Secondary pulmonary arterial hypertension Short bowel syndrome Sleep apnea Smoking greater than 20 pack years Tremor Type 2 diabetes mellitus with diabetic polyneuropathy Ulcerative colitis Vitamin B12 deficiency Vitamin D deficiency Walker as ambulation aid Wears glasses Home Medications aspirin 81 mg tablet,delayed release 81 mg PO DAILY heart health 04/08/21 [History Last Taken 04/10/23] duloxetine 30 mg capsule,delayed release 90 mg PO DAILY depression 10/06/21 [History Last Taken 04/10/23] Wheel Chair 11/15/21 [History Last Taken Unknown] blood sugar diagnostic (True Metrix Glucose Test Strip) 11/15/21 [History Last Taken Unknown] blood-glucose meter,continuous (DexGenSight Biologics G6 Machine Stripper) 11/15/21 [History Last Taken Unknown] pen needle, diabetic 32 gauge x 5/32 (BD Ultra-Fine Key Pen Needle) 11/15/21 [History Last Taken Unknown] nitroglycerin 0.4 mg sublingual tablet 0.4 mg sublingual Q5-15M PRN chest pain #25 tabs 11/20/21 [Rx Last Taken Unknown] ostomy supplies #1 ea 02/13/22 [Rx Last Taken Unknown] lamotrigine 100 mg tablet 200 mg PO DAILY mood stabilizer 07/20/22 [History Last Taken 04/10/23] metoprolol tartrate 25 mg tablet 25 mg PO .COMPLEX bp #180 tabs 07/28/22 [Rx Last Taken Unknown] atorvastatin 80 mg tablet 80 mg PO QHS CHOLESTEROL LOWERING #90 tabs 08/04/22 [Rx Last Taken 04/10/23] blood-glucose transmitter (Dexcom G6 Transmitter device) #1 ea 08/07/22 [Rx Last Taken Unknown] metoprolol tartrate 50 mg tablet 50 mg PO .COMPLEX blood pressure 09/02/22 [History Last Taken 04/10/23] Handicap Placard #1 ea 09/16/22 [Rx Last Taken Unknown] isosorbide dinitrate 30 mg tablet 30 mg PO BID heart #60 tabs 12/11/22 [Rx Last Taken Unknown] blood-glucose sensor (Dexcom G6 Sensor device) #9 ea 12/14/22 [Rx Last Taken Unknown] insulin pump cart,automated,BT (Omnipod 5 G6 Pods (Gen 5) subcutaneous cartridge) #45 ea 01/13/23 [Rx Last Taken Unknown] Juanita Cohesive Seal 2 diameter #15 ea 01/18/23 [Rx Last Taken Unknown] Esenta Sting Free Adhesive Remover Wipe - #15 ea 01/18/23 [Rx Last Taken Unknown] Esenta Sting Free Skin Barrier [place], 50 mL - #15 ea 01/18/23 [Rx Last Taken Unknown] Esteem + Convex One-Piece Drainable Pre-Cut Pouch w/ visiClose, Durahesive, 12 panel [place], 1 03/15 #15 ea 01/18/23 [Rx Last Taken Unknown] clopidogrel 75 mg tablet 75 mg PO DAILY heart health #90 tabs 02/04/23 [Rx Last Taken 04/10/23] pregabalin 75 mg capsule 75 mg PO BID pain #60 caps 02/04/23 [Rx Last Taken Unknown] blood sugar diagnostic (True Metrix Glucose Test Strip) #100 ea 02/08/23 [Rx Last Taken Unknown] buprenorphine 15 mcg/hour weekly transdermal patch 1 patch transdermal Q7D pain 02/10/23 [History Last Taken 04/10/23] melatonin 5 mg tablet 5 mg PO HS sleep 02/10/23 [History Last Taken 04/10/23] cyclobenzaprine 10 mg tablet 10 mg PO TID PRN muscle spasm #30 tabs 02/24/23 [Rx Last Taken Unknown] benzonatate 200 mg capsule 200 mg PO BID PRN cough #30 caps 03/10/23 [Rx Last T aken Unknown] insulin lispro 200 unit/mL (3 mL) subcutaneous pen (Humalog KwikPen U-200 Insulin) 130 unit (0.65 mL) subcut DAILY diabetes #60 mL 03/12/23 [Rx Last Taken Unknown] trazodone 50 mg tablet 50 mg PO QHS sleep 03/18/23 [History Last Taken Unknown] cholestyramine (with sugar) 4 gram powder for susp in a packet 4 g PO BIDAC stool #60 ea 03/31/23 [Rx Last Taken 04/11/23] dicyclomine 10 mg capsule 20 mg (2 x 10 mg) PO BID PRN abdominal pain #30 caps 03/31/23 [Rx Last Taken Unknown] diphenoxylate-atropine 2.5 mg-0.025 mg tablet (Lomotil) 1 tab PO TID diarrhea #90 tabs 03/31/23 [Rx Last Taken Unknown] pantoprazole 40 mg tablet,delayed release (Protonix) 40 mg PO BID GERD #60 tabs 03/31/23 [Rx Last Taken Unknown] dapagliflozin propanediol 10 mg tablet (Farxiga) 10 mg PO DAILY diabetes #90 tabs 04/03/23 [Rx Last Taken 04/10/23] Allergy/AdvReac Type Severity Reaction Status Date / Time ciprofloxacin Allergy Intermediate Swelling Verified 04/11/23 15:36 cinnamon [Cinnamon] Allergy Anaphylaxis Verified 04/11/23 15:36 Influenza Virus Vaccines Allergy Shortness Verified 04/11/23 15:36 of breath liraglutide [From Victoza] Allergy Anaphylaxis Verified 04/11/23 15:36 metformin [From Glucophage] Allergy NEEDS Verified 04/11/23 15:36 FOLLOW-UP metronidazole [From Flagyl] Allergy Hives Verified 04/11/23 15:36 Metronidazole HCl Allergy Hives Verified 04/11/23 15:36 [From Flagyl] Penicillins Allergy Hives Verified 04/11/23 15:36 Sulfa (Sulfonamide Allergy Hives Verified 04/11/23 15:36 Antibiotics) aripiprazole [From Abilify] AdvReac hallucinati Verified 04/11/23 15:36 ons codeine AdvReac Stops Verified 04/11/23 15:36 Ileostomy metformin HCl AdvReac Nausea Verified 04/11/23 15:36 [From Glucophage] ranolazine AdvReac Nausea/Vom/ Verified 04/11/23 15:36 Diarrhea Purokvw-CML-GtJ Reductase AdvReac Nausea/joints Verified 04/11/23 15:36 Inhibitor ache [Ptujdfb-Rvw-Mak Reductase Inhibitor] Family History Mother CVA (cerebral vascular accident) Diabetes Brother Heart disease of CAD at 65 Myocardial infarction Pancreatitis Father Cancer lymphomia Lymphoma Grandmother Myocardial infarction of [place] in her 70s Sister COPD (chronic obstructive pulmonary disease) Surgical History H/O colectomy H/O coronary artery bypass surgery (05/18/12) H/O sinus surgery H/O total hysterectomy history closed fissure History of appendectomy History of History of cardiac catheterization History of cholecystectomy History of coronary artery stent placement (01/12/18) History of coronary artery stent placement ileostomy Ileostomy status left thumb surgery Status post total hip replacement, left Social History household members: none Smoking Status: Former smoker quit date: 03/08/12 how long ago did patient quit smoking: quit in 2012; 0.5-1ppd x 30yrs alcohol intake: never substance use type: does not use diet: diabetic caffeine: No eating out: 1-3 times/week what type of physical activity do you participate in: none seatbelt use: always do you feel safe at home: Yes ROS ROS Narrative Negative except above Physical Exam Narrative Alert awake oriented x 3 no obvious distress no pallor no icterus no JVD s1s2 no murmurs lungs clear abdomen soft no organomegaly no edema no cyanosis Lab / Micro Data 04/13/23 06:02 04/13/23 06:02 Labs: Laboratory Results - last 24 hr 04/13/23 06:02: WBC 10.9, RBC 4.48, Hgb 11.9 L, Hct 37.8, MCV 84.4, MCH 26.6 L, MCHC 31.5 L, RDW Std Deviation 52.5 H, RDW Coeff of Jan 17.1 H, Plt Count 185, MPV 12.4 H, Immature Gran % (Auto) 1.000 H, Neut % (Auto) 58.6, Lymph % (Auto) 25.0, [place] % (Auto) 7.1, Eos % (Auto) 8.0 H, Baso % (Auto) 0.3, Absolute Neuts (auto) 6.4, Absolute Lymphs (auto) 2.71, Nucleated RBC % 0, Sodium 135 L, Potassium 4.1, Chloride 114 H, Carbon Dioxide 15.0 L, Anion Gap 6, BUN 47 H, Cre atinine 4.36 H, Estim Creat Clear Calc 14.98, Est GFR (MDRD) Af Amer 13 L, Est GFR (MDRD) Non-Af 11 L, BUN/Creatinine Ratio 10.8, Glucose 144 H, Calcium 8.8, Phosphorus 4.5, Magnesium 2.1 Micro: Microbiology 04/11/23 20:10 Stool Enteric Bacteriology - Final 04/11/23 20:10 Stool Clostridioides difficile (PCR) - Final
[2023-04-13] MEDS: 0.9% Saline Lock 10 ML Syringe IV (15:22)
[2023-04-13] MEDS: oxyCODONE 5 MG Tablet PO (20:00)
[2023-04-13] MEDS: traZODone 50 MG Tablet PO (22:58)
[2023-04-13] MEDS: Atorvastatin Calcium 80 MG Tablet PO (22:58)
[2023-04-13] MEDS: MELATONIN 10 MG TABLET 5 MG PO (22:58)
--- NOTE | 2023-04-13 23:02 | NURSING ---
Pt blood sugar 145 per patient
[2023-04-14] VITALS (7 sets, daily range): BP systolic 115–142; BP diastolic 56–68; PULSE 59–79; RESP 15–18; TEMP 36.4–36.8; O2SAT 93–98
[2023-04-14] MEDS: Lactated Ringers 1,000 ML 200 ML IV ×5 (02:06→21:02)
[2023-04-14] MEDS: Diphenoxylate/Atrop 1 Tablet PO ×3 (07:00→22:51)
[2023-04-14] MEDS: Cholestyramine/Sucrose 4 GM/PACKET PO ×2 (07:00→16:20)
[2023-04-14] MEDS: Metoprolol Tartrate 25 MG Tablet 75 MG PO ×2 (07:58→22:51)
[2023-04-14] MEDS: Aspirin E.C. 81 MG Tablet PO (07:58)
[2023-04-14] MEDS: DULoxetine Hcl 30 MG Capsule 90 MG PO (07:58)
[2023-04-14] MEDS: Isosorbide DN 30 MG Tablet PO ×2 (07:58→22:50)
[2023-04-14] MEDS: Pantoprazole Sodium 40 MG Tablet PO ×2 (07:59→22:52)
[2023-04-14] MEDS: Enoxaparin 30 MG/0.3 ML Syringe SC (07:59)
[2023-04-14] MEDS: lamoTRIgine 100 MG Tablet 200 MG PO (07:59)
[2023-04-14] MEDS: Clopidogrel Bisulfate 75 MG Tablet PO (07:59)
--- NOTE | 2023-04-14 08:43 | RAD_ITS ---
STUDY: X-RAY - RIGHT WRIST REASON FOR EXAM: Female, 62 years old. Pain following recent falls. TECHNIQUE: 2 view(s) of the wrist were obtained. COMPARISON: None. FINDINGS: Normal visualized distal radius and ulna. Normal radiocarpal articulation. Normal distal radioulnar articulation. Normal carpal bones. Normal carpal articulations. Normal carpometacarpal articulation of the thumb. Normal second through fifth carpometacarpal articulations. Normal visualized metacarpal bones. Calcification of the triangular fibrocartilage. RAD/Wrist 2 Views IMPRESSION: Normal x-ray examination of the wrist. Electronically Signed: Eric Spencer MD at 9:14 EST ,
--- NOTE | 2023-04-14 08:45 | RAD_ITS ---
STUDY: X-RAY - RIGHT HAND REASON FOR EXAM: Female, 62 years old. Pain following several recent falls. TECHNIQUE: 2 view(s) of the hand. COMPARISON: None. FINDINGS: Normal radiocarpal articulation. Normal distal radioulnar joint. Normal visualized carpal bones. Normal carpal articulations Normal carpometacarpal articulation of the thumb. Normal second through fifth carpometacarpal joints. Normal metacarpi. Normal metacarpophalangeal joint of the thumb. Normal interphalangeal joint of the thumb. Normal proximal and distal phalanges of the thumb. Normal metacarpophalangeal joints of the second through fifth fingers. Normal proximal and distal interphalangeal joints of the second through fifth fingers. Normal phalanges of the second through fifth fingers. Incidental note is made of calcification of the triangular fibrocartilage. RAD/Hand 2 Views IMPRESSION: Normal x-ray examination of the hand. Electronically Signed: Eric Spencer MD at 9:13 EST ,
[2023-04-14 08:54] LABS: Absolute Lymphocyte Count 2.01 X10^3/uL (0.83-4.51); Absolute Neutrophil Count 4.2 X10^3/uL (2.0-7.7); Basophil# 0.03 X10^3/uL; Basophil% 0.4 % (0-1); Eosinophil# 0.74 X10^3/uL; Eosinophils% 9.8 % (0-5); Hematocrit 33.6 % (37-47); Hemoglobin 10.6 g/dL (12.0-15.0); Lymphocyte # 2.01 X10^3/ul (0.83-4.51); Lymphocyte % 26.6 % (19-41); Mean Corp Hgb Conc 31.5 g/dL (32-36); Mean Corpuscular Hgb 26.8 pg (27.0-32.0); Mean Corpuscular Volume 85.1 fL (81-99); Mean Platelet Vol. 12.3 fl (6.2-12.0); Monocyte# 0.48 X10^3/uL; Monocyte% 6.4 % (0-10); NRBC Flagged by Analyzer 0 % (0-5); Neutrophil # 4.21 X10^3/uL (2.7-7.7); Neutrophil % 55.7 % (47-70); Platelet Count 166 K/mm3 (150-450); RBC Distribution Width CV 17.1 % (11.6-14.6); RBC Distribution Width SD 52.9 fl (35.1-43.9); Red Blood Count 3.95 M/mm3 (4.2-5.4); White Blood Count 7.6 K/mm3 (4.4-11.0)
--- NOTE | 2023-04-14 09:51 | PN.HOSP_ITS ---
Reason for Visit Reason for Visit: Diagnoses Acute kidney failure, unspecified (04/11/23) Chronic kidney disease, stage 3b (04/11/23) Subjective Subjective Patient seen complaining of pain in the right wrist. Imaging studies ordered for subsequent evaluation. This a.m.'s labs still pending. Objective Data Objective Data Vital Signs: Vital Signs Temp Pulse Resp BP Pulse Ox O2 Del Method 98.0 F 70 15 131/61 H 95 Room Air 04/14/23 07:50 04/14/23 07:58 04/14/23 07:50 04/14/23 07:50 04/14/23 07:50 04/14/23 07:50 Oxygen Delivery Method Room Air Weight: 89.6 kg Body Mass Index (BMI) 30.9 Intake & Output: Intake and Output for Last 24 Hours 04/12/23 04/13/23 04/14/23 23:59 23:59 23:59 Intake Total 2369 / 2369 3903.33 / 3903.33 1979 Output Total 1400 / 1400 Balance 969 / 969 3903.33 / 3903.33 1979 Lab / Micro Data 04/14/23 08:15 04/13/23 06:02 Labs: Laboratory Results - last 24 hr 04/14/23 08:15: WBC 7.6, RBC 3.95 L, Hgb 10.6 L, Hct 33.6 L, MCV 85.1, MCH 26.8 L, MCHC 31.5 L, RDW Std Deviation 52.9 H, RDW Coeff of Jan 17.1 H, Plt Count 166, MPV 12.3 H, Immature Gran % (Auto) 1.100 H, Neut % (Auto) 55.7, Lymph % (Auto) 26.6, [place] % (Auto) 6.4, Eos % (Auto) 9.8 H, Baso % (Auto) 0.4, Absolute Neuts (auto) 4.2, Absolute Lymphs (auto) 2.01, Nucleated RBC % 0 Micro: Microbiology 04/11/23 20:10 Stool Enteric Bacteriology - Final 04/11/23 20:10 Stool Clostridioides difficile (PCR) - Final Radiography Diagnostic Testing: Radiology Impression Renal Ultrasound 04/13/23 10:19 IMPRESSION: 1. No evidence of hydronephrosis. 2. Simple left renal cyst Electronically Signed: Vishal Porter MD at 14:55 EST , Wrist X-Ray 04/14/23 08:43 IMPRESSION: Normal x-ray examination of the wrist. Electronically Signed: Eric Spencer MD at 9:14 EST , Hand X-Ray 04/14/23 08:45 IMPRESSION: Normal x-ray examination of the hand. Electronically Signed: Eric Spencer MD at 9:13 EST , Physical Exam Narrative GENERAL: cooperative HEENT: Atraumatic; normocephalic EYES; Anicteric, Normal Conjunctiva NECK; supple, normal thyroid, RESPIRATORY: Diminished to auscultation CARDIOVASCULAR: Regular S1 S2, GI: soft, normoactive bowel sounds, : No Renal angle tenderness; EXTREMITIES: No edema, no clubbing, MUSCULOSKELETAL: no muscle wasting NEURO: Awake; no lateralizing signs. SKIN: No Rash PSYCH; Flat affect Assessment & Plan Assessment/Plan (1) CKD (chronic kidney disease) stage 3, GFR 30-59 ml/min: QUALIFIERS: Chronic kidney disease stage 3 subtype: stage 3b (GFR 30-44) Qualified Code(s): N18.32 - Chronic kidney disease, stage 3b PLAN: Plan Patient is a 62-year-old female with extensive GI history including gastroparesis, nonalcoholic fatty liver disease, ileostomy with short gut syndrome presented with nausea vomiting and diarrhea 1. Dehydration ? Secondary to high ostomy output. Admitted to regular nursing floor. Managed with IV fluids. Stool sent for ova parasite as well as C. difficile. Patient is on cholestyramine as well as Lomotil as outpatient did continue 2.Acute kidney injury ? Superimposed on chronic kidney disease stage III. Baseline creatinine 1.8, creatinine on admission was 3.04 did rise to 4.36 on IV fluid with subsequent monitoring of electrolytes ? 04/13/2023;Patient seen no significant change in kidney function. Still has significant loose bowel movement through the ileostomy. Did increase patient IV fluids, ordered renal ultrasound and consulted nephrology ? 04/14/2023 patient was seen in consultation by nephrology patient IV fluids adjusted awaiting lab work prior to making a decision 3. Diabetes mellitus type 2 ? Patient is on insulin pump plan is for patient to continue 4. Gastroparesis ? Patient is on Reglan as outpatient currently being held 5. GERD ? On PPI 6. Coronary artery disease -Has history of CABG and subsequent stent placement. Patient is on guideline directed medical therapy 7. MGUS ? Patient is followed by oncology as outpatient 8. History of ulcerative colitis ? Status post ileostomy with resultant short gut syndrome 9. Essential hypertension ? Patient antihypertensives held given her relatively low blood pressure 10. Chronic pain syndrome ? Patient is on buprenorphine 11. Depression ? Patient is on duloxetine 12. Psoriasis ? Patient had previously been treated with Humira taking off during the COVID pandemic 13. Hypomagnesemia ? Secondary to patient high output ileostomy corrected per protocol repeat magnesium and phosphorus ordered for a.m. 14. DVT prophylaxis - On enoxaparin, dose adjusted for kidney function 15. Right wrist pain - ordered imaging studies for subsequent eval Time spent in the patient's overall evaluation,decision-making process, review of diagnostic data, adjustment of management, discussion with other providers, nursing nursing and ancillary staff involved in patient's care documentation, 35 Minutes Charges/Coding Visit Charges Inpatient E&M: [id number] [facility] Hosp L2
[2023-04-14 10:28] LABS: Anion Gap 4 (5-15); BUN 36 mg/dL (7-18); BUN/Creat Ratio 13.8 RATIO (10-20); Calcium,Total 9.4 mg/dL (8.5-10.1); Chloride 116 mmol/L (98-107); EST Glomerular Filtration Rate 20 mL/min (>60); Est Glom Filt Rate - Afr Amer 24 mL/min (>60); Estimated Creatinine Clearance 25.12 ml/min; Glucose 115 mg/dL (74-106); Potassium 3.8 mmol/L (3.5-5.1); Sodium Level 139 mmol/L (136-145)
--- NOTE | 2023-04-14 11:39 | PN.RENAL_ITS ---
Subjective Subjective No new complaints. Ileostomy output is better. She states urine output has picked up. Objective Data Objective Data Vital Signs: Vital Signs Temp Pulse Resp BP Pulse Ox O2 Del Method 98.0 F 70 15 131/61 H 95 Room Air 04/14/23 07:50 04/14/23 07:58 04/14/23 07:50 04/14/23 07:50 04/14/23 07:50 04/14/23 07:50 Oxygen Delivery Method Room Air Weight: 89.6 kg Body Mass Index (BMI) 30.9 Intake & Output: Intake and Output for Last 24 Hours 04/12/23 04/13/23 04/14/23 23:59 23:59 23:59 Intake Total 2369 / 2369 3903.33 / 3903.33 2880 / 2880 Output Total 1400 / 1400 Balance 969 / 969 3903.33 / 3903.33 2880 / 2880 Lab / Micro Data 04/14/23 08:15 04/14/23 08:15 Labs: Laboratory Results - last 24 hr 04/14/23 08:15: WBC 7.6, RBC 3.95 L, Hgb 10.6 L, Hct 33.6 L, MCV 85.1, MCH 26.8 L, MCHC 31.5 L, RDW Std Deviation 52.9 H, RDW Coeff of Jan 17.1 H, Plt Count 166, MPV 12.3 H, Immature Gran % (Auto) 1.100 H, Neut % (Auto) 55.7, Lymph % (Auto) 26.6, [place] % (Auto) 6.4, Eos % (Auto) 9.8 H, Baso % (Auto) 0.4, Absolute Neuts (auto) 4.2, Absolute Lymphs (auto) 2.01, Nucleated RBC % 0, Sodium 139, Potassium 3.8, Chloride 116 H, Carbon Dioxide 19.0 L, Anion Gap 4 L, BUN 36 H, Creatinine 2.60 H, Estim Creat Clear Calc 25.12, Est GFR (MDRD) Af Amer 24 L, Est GFR (MDRD) Non-Af 20 L, BUN/Creatinine Ratio 13.8, Glucose 115 H, Calcium 9.4 Micro: Microbiology 04/11/23 20:10 Stool Enteric Bacteriology - Final 04/11/23 20:10 Stool Clostridioides difficile (PCR) - Final Radiography Diagnostic Testing: Radiology Impression Renal Ultrasound 04/13/23 10:19 IMPRESSION: 1. No evidence of hydronephrosis. 2. Simple left renal cyst Electronically Signed: Vishal Porter MD at 14:55 EST , Wrist X-Ray 04/14/23 08:43 IMPRESSION: Normal x-ray examination of the wrist. Electronically Signed: Eric Spencer MD at 9:14 EST , Hand X-Ray 04/14/23 08:45 IMPRESSION: Normal x-ray examination of the hand. Electronically Signed: Eric Spencer MD at 9:13 EST , Physical Exam Narrative Alert awake oriented x 3 no obvious distress no pallor no icterus no JVD s1s2 no murmurs lungs clear abdomen soft no organomegaly no edema no cyanosis Assessment & Plan Assessment/Plan (1) RALPH (acute kidney injury): PLAN: Baseline creatinine is around 1.6-2.0. Usually has RALPH in the setting of volume depletion. Apparently was emptying ileostomy bag almost every half an hour. Ileostomy output has improved. RALPH is likely related to volume d epletion. Creatinine is significantly better today. Metabolic acidosis. Likely due to ileostomy. Improved Asking about going home. Likely can be discharged tomorrow as long as ileostomy output is stabilized. Resumed Lyrica which is her home medication. Will continue to hold the SGLT2 inhibitor for now.
[2023-04-14] MEDS: Pregabalin 75 MG Capsule PO ×2 (12:35→22:52)
[2023-04-14] MEDS: oxyCODONE 5 MG Tablet PO ×2 (14:48→22:53)
[2023-04-14] MEDS: traZODone 50 MG Tablet PO (22:50)
[2023-04-14] MEDS: Atorvastatin Calcium 80 MG Tablet PO (22:51)
[2023-04-14] MEDS: MELATONIN 10 MG TABLET 5 MG PO (22:52)
[2023-04-15] MEDS: Lactated Ringers 1,000 ML 200 ML IV ×2 (02:03→06:12)
[2023-04-15 02:09] VITALS: BP 150/60; PULSE 71; RESP 20; TEMP 36.6; O2SAT 96
[2023-04-15 06:06] VITALS: BP 127/61; PULSE 68; RESP 16; TEMP 36.5; O2SAT 95
[2023-04-15] MEDS: Diphenoxylate/Atrop 1 Tablet PO (06:09)
[2023-04-15] MEDS: Cholestyramine/Sucrose 4 GM/PACKET PO (06:10)
[2023-04-15 07:12] LABS: Absolute Lymphocyte Count 2.99 X10^3/uL (0.83-4.51); Absolute Neutrophil Count 4.1 X10^3/uL (2.0-7.7); Basophil# 0.05 X10^3/uL; Basophil% 0.6 % (0-1); Eosinophil# 0.97 X10^3/uL; Eosinophils% 11.1 % (0-5); Hematocrit 31.3 % (37-47); Hemoglobin 9.6 g/dL (12.0-15.0); Lymphocyte # 2.99 X10^3/ul (0.83-4.51); Lymphocyte % 34.1 % (19-41); Mean Corp Hgb Conc 30.7 g/dL (32-36); Mean Corpuscular Hgb 27.3 pg (27.0-32.0); Mean Corpuscular Volume 88.9 fL (81-99); Mean Platelet Vol. 12.3 fl (6.2-12.0); Monocyte# 0.48 X10^3/uL; Monocyte% 5.5 % (0-10); NRBC Flagged by Analyzer 0.2 % (0-5); Neutrophil # 4.11 X10^3/uL (2.7-7.7); Neutrophil % 46.9 % (47-70); Platelet Count 170 K/mm3 (150-450); RBC Distribution Width CV 17.2 % (11.6-14.6); Red Blood Count 3.52 M/mm3 (4.2-5.4); White Blood Count 8.8 K/mm3 (4.4-11.0)
[2023-04-15 07:51] LABS: Anion Gap 2 (5-15); BUN 27 mg/dL (7-18); BUN/Creat Ratio 12.1 RATIO (10-20); Chloride 118 mmol/L (98-107); Creatinine, Serum 2.23 mg/dL (0.55-1.02); EST Glomerular Filtration Rate 24 mL/min (>60); Est Glom Filt Rate - Afr Amer 28 mL/min (>60); Estimated Creatinine Clearance 29.29 ml/min; Glucose 124 mg/dL (74-106); Potassium 4.2 mmol/L (3.5-5.1); Sodium Level 140 mmol/L (136-145)
--- NOTE | 2023-04-15 07:54 | PCM.PN.HOSP ---
Reason for Visit Reason for Visit: Diagnoses Acute kidney failure, unspecified (04/11/23) Chronic kidney disease, stage 3b (04/11/23) Subjective Subjective Patient seen kidney function improved. Patient requesting to be discharged home. Objective Data Objective Data Vital Signs: Vital Signs Temp Pulse Resp BP Pulse Ox O2 Del Method 97.7 F L 68 16 127/61 H 95 Room Air 04/15/23 06:06 04/15/23 06:06 04/15/23 06:06 04/15/23 06:06 04/15/23 06:06 04/15/23 06:24 Oxygen Delivery Method Room Air Weight: 89.6 kg Body Mass Index (BMI) 30.9 Intake & Output: Intake and Output for Last 24 Hours 04/13/23 04/14/23 04/15/23 23:59 23:59 23:59 Intake Total 3903.33 / 3903.33 4786.67 / 4786.67 1830 / 1830 Balance 3903.33 / 3903.33 4786.67 / 4786.67 1830 / 1830 Lab / Micro Data 04/15/23 06:10 04/15/23 06:10 Labs: Laboratory Results - last 24 hr 04/14/23 08:15: WBC 7.6, RBC 3.95 L, Hgb 10.6 L, Hct 33.6 L, MCV 85.1, MCH 26.8 L, MCHC 31.5 L, RDW Std Deviation 52.9 H, RDW Coeff of Jan 17.1 H, Plt Count 166, MPV 12.3 H, Immature Gran % (Auto) 1.100 H, Neut % (Auto) 55.7, Lymph % (Auto) 26.6, [place] % (Auto) 6.4, Eos % (Auto) 9.8 H, Baso % (Auto) 0.4, Absolute Neuts (auto) 4.2, Absolute Lymphs (auto) 2.01, Nucleated RBC % 0, Sodium 139, Potassium 3.8, Chloride 116 H, Carbon Dioxide 19.0 L, Anion Gap 4 L, BUN 36 H, Creatinine 2.60 H, Estim Creat Clear Calc 25.12, Est GFR (MDRD) Af Amer 24 L, Est GFR (MDRD) Non-Af 20 L, BUN/Creatinine Ratio 13.8, Glucose 115 H, Calcium 9.4 04/15/23 06:10: WBC 8.8, RBC 3.52 L, Hgb 9.6 L, Hct 31.3 L, MCV 88.9, MCH 27.3, MCHC 30.7 L, RDW Std Deviation 56.0 H, RDW Coeff of Jan 17.2 H, Plt Count 170, MPV 12.3 H, Immature Gran % (Auto) 1.800 H, Neut % (Auto) 46.9 L, Lymph % (Auto) 34.1, [place] % (Auto) 5.5, Eos % (Auto) 11.1 H, Baso % (Auto) 0.6, Absolute Neuts (auto) 4.1, Absolute Lymphs (auto) 2.99, Nucleated RBC % 0.2, Sodium 140, Potassium 4.2, Chloride 118 H, Carbon Dioxide 20.0 L, Anion Gap 2 L, BUN 27 H, Creatinine 2.23 H, Estim Creat Clear Calc 29.29, Est GFR (MDRD) Af Amer 28 L, Est GFR (MDRD) Non-Af 24 L, BUN/Creatinine Ratio 12.1, Glucose 124 H, Calcium 9.0 Micro: Microbiology 04/11/23 20:10 Stool Enteric Bacteriology - Final 04/11/23 20:10 Stool Clostridioides difficile (PCR) - Final Radiography Diagnostic Testing: Radiology Impression Wrist X-Ray 04/14/23 08:43 IMPRESSION: Normal x-ray examination of the wrist. Electronically Signed: Eric Spencer MD at 9:14 EST , Hand X-Ray 04/14/23 08:45 IMPRESSION: Normal x-ray examination of the hand. Electronically Signed: Eric Spencer MD at 9:13 EST , Physical Exam Narrative GENERAL: cooperative HEENT: Atraumatic; normocephalic EYES; Anicteric, Normal Conjunctiva NECK; supple, normal thyroid, RESPIRATORY: Diminished to auscultation CARDIOVASCULAR: Regular S1 S2, GI: soft, normoactive bowel sounds, : No Renal angle tenderness; EXTREMITIES: No edema, no clubbing, MUSCULOSKELETAL: no muscle wasting NEURO: Awake; no lateralizing signs. SKIN: No Rash PSYCH; Flat affect Assessment & Plan Assessment/Plan (1) CKD (chronic kidney disease) stage 3, GFR 30-59 ml/min: QUALIFIERS: Chronic kidney disease stage 3 subtype: stage 3b (GFR 30-44) Qualified Code(s): N18.32 - Chronic kidney disease, stage 3b PLAN: Plan Patient is a 62-year-old female with extensive GI history including gastroparesis, nonalcoholic fatty liver disease, ileostomy with short gut syndrome presented with nausea vomiting and diarrhea 1. Dehydration ? Secondary to high ostomy output. Admitted to regular nursing floor. Managed with IV fluids. Stool sent for ova parasite as well as C. difficile. Patient is on cholestyramine as well as Lomotil as outpatient did continue 2.Acute kidney injury ? Superimposed on chronic kidney disease stage III. Baseline creatinine 1.8, creatinine on admission was 3.04 did rise to 4.36 on IV fluid with subsequent monitoring of electrolytes ? 04/13/2023;Patient seen no significant change in kidney function. Still has significant loose bowel movement through the ileostomy. Did increase patient IV fluids, ordered renal ultrasound and consulted nephrology ? 04/14/2023 patient was seen in consultation by nephrology patient IV fluids adjusted awaiting lab work prior to making a decision ? 04/15/2023 significant improvement in kidney function 3. Diabetes mellitus type 2 ? Patient is on insulin pump plan is for patient to continue 4. Gastroparesis ? Patient is on Reglan as outpatient currently being held 5. GERD ? On PPI 6. Coronary artery disease -Has history of CABG and subsequent stent placement. Patient is on guideline directed medical therapy 7. MGUS ? Patient is followed by oncology as outpatient 8. History of ulcerative colitis ? Status post ileostomy with resultant short gut syndrome 9. Essential hypertension ? Patient antihypertensives held given her relatively low blood pressure 10. Chronic pain syndrome ? Patient is on buprenorphine 11. Depression ? Patient is on duloxetine 12. Psoriasis ? Patient had previously been treated with Humira taking off during the COVID pandemic 13. Hypomagnesemia ? Secondary to patient high output ileostomy corrected per protocol repeat magnesium and phosphorus ordered for a.m. 14. DVT prophylaxis - On enoxaparin, dose adjusted for kidney function 15. Right wrist pain - ordered imaging studies for subsequent eval Time spent in the patient's overall evaluation,decision-making process, review of diagnostic data, adjustment of management, discussion with other providers, nursing nursing and ancillary staff involved in patient's care documentation, 35 Minutes
[2023-04-15 09:15] VITALS: BP 159/68; PULSE 65; RESP 20; TEMP 36.4; O2SAT 96
[2023-04-15 09:17] VITALS: PULSE 65
[2023-04-15] MEDS: Isosorbide DN 30 MG Tablet PO (09:17)
[2023-04-15] MEDS: lamoTRIgine 100 MG Tablet 200 MG PO (09:17)
[2023-04-15] MEDS: DULoxetine Hcl 30 MG Capsule 90 MG PO (09:17)
[2023-04-15] MEDS: Aspirin E.C. 81 MG Tablet PO (09:17)
[2023-04-15] MEDS: Pregabalin 75 MG Capsule PO (09:17)
[2023-04-15] MEDS: Metoprolol Tartrate 25 MG Tablet 75 MG PO (09:17)
[2023-04-15] MEDS: Pantoprazole Sodium 40 MG Tablet PO (09:17)
[2023-04-15] MEDS: Clopidogrel Bisulfate 75 MG Tablet PO (09:17)
[2023-04-15] MEDS: Enoxaparin 30 MG/0.3 ML Syringe SC (09:18)
--- NOTE | 2023-04-15 10:52 | PCM.DC.SUM ---
Providers Date of Admission: 04/11/23 Date of Discharge: 04/15/23 Primary Care Physician: Dr. Mala Mcgrath MD Consultations 04/11/23 19:00 Consult: Onc/Wound/instrument installer Routine Comment: 04/13/23 10:19 Consult: Nephrology Routine Consulting Provider: Claudia Rico Reason for Consult: mercedes EMERGENT Consult: No MD Notified: Yes Date Notified: 04/13/23 Time Notified: 10:19 Method of Notification: Text Reason For Visit: DEHYDRATION Diagnosis Discharge Diagnosis (1) CKD (chronic kidney disease) stage 3, GFR 30-59 ml/min: Status: Chronic Code(s): N18.30 - Chronic kidney disease, stage 3 unspecified Qualifiers: Chronic kidney disease stage 3 subtype: stage 3b (GFR 30-44) Qualified Code(s): N18.32 - Chronic kidney disease, stage 3b Plan Patient is a 62-year-old female with extensive GI history including gastroparesis, nonalcoholic fatty liver disease, ileostomy with short gut syndrome presented with nausea vomiting and diarrhea 1. Dehydration ? Secondary to high ostomy output. Admitted to regular nursing floor. Managed with IV fluids. Stool sent for ova parasite as well as C. difficile. Patient is on cholestyramine as well as Lomotil as outpatient did continue 2.Acute kidney injury ? Superimposed on chronic kidney disease stage III. Baseline creatinine 1.8, creatinine on admission was 3.04 did rise to 4.36 on IV fluid with subsequent monitoring of electrolytes ? 04/13/2023;Patient seen no significant change in kidney function. Still has significant loose bowel movement through the ileostomy. Did increase patient IV fluids, ordered renal ultrasound and consulted nephrology ? 04/14/2023 patient was seen in consultation by nephrology patient IV fluids adjusted awaiting lab work prior to making a decision ? 04/15/2023 significant improvement in kidney function 3. Diabetes mellitus type 2 ? Patient is on insulin pump plan is for patient to continue 4. Gastroparesis ? Patient is on Reglan as outpatient currently being held 5. GERD ? On PPI 6. Coronary artery disease -Has history of CABG and subsequent stent placement. Patient is on guideline directed medical therapy 7. MGUS ? Patient is followed by oncology as outpatient 8. History of ulcerative colitis ? Status post ileostomy with resultant short gut syndrome 9. Essential hypertension ? Patient antihypertensives held given her relatively low blood pressure 10. Chronic pain syndrome ? Patient is on buprenorphine 11. Depression ? Patient is on duloxetine 12. Psoriasis ? Patient had previously been treated with Humira taking off during the COVID pandemic 13. Hypomagnesemia ? Secondary to patient high output ileostomy corrected per protocol repeat magnesium and phosphorus ordered for a.m. 14. DVT prophylaxis - On enoxaparin, dose adjusted for kidney function 15. Right wrist pain - ordered imaging studies for subsequent eval Time spent in the patient's overall evaluation,decision-making process, review of diagnostic data, adjustment of management, discussion with other providers, nursing nursing and ancillary staff involved in patient's care documentation, 35 Minutes Medications at Discharge Home Medications aspirin 81 mg tablet,delayed release 81 mg PO DAILY heart health 04/08/21 duloxetine 30 mg capsule,delayed release 90 mg PO DAILY depression 10/06/21 Wheel Chair 11/15/21 blood sugar diagnostic (True Metrix Glucose Test Strip) 11/15/21 blood-glucose meter,continuous (Dexcom G6 Paint Stripper) 11/15/21 pen needle, diabetic 32 gauge x 5/32 (BD Ultra-Fine Key Pen Needle) 11/15/21 nitroglycerin 0.4 mg sublingual tablet 0.4 mg sublingual Q5-15M PRN chest pain #25 tabs 11/20/21 ostomy supplies #1 ea 02/13/22 lamotrigine 100 mg tablet 200 mg PO DAILY mood stabilizer 07/20/22 metoprolol tartrate 25 mg tablet 25 mg PO .COMPLEX bp #180 tabs 07/28/22 atorvastatin 80 mg tablet 80 mg PO QHS CHOLESTEROL LOWERING #90 tabs 08/04/22 blood-glucose transmitter (Dexcom G6 Transmitter device) #1 ea 08/07/22 metoprolol tartrate 50 mg tablet 50 mg PO .COMPLEX blood pressure 09/02/22 Handicap Placard #1 ea 09/16/22 isosorbide dinitrate 30 mg tablet 30 mg PO BID heart #60 tabs 12/11/22 blood-glucose sensor (Dexcom G6 Sensor device) #9 ea 12/14/22 insulin pump cart,automated,BT (Omnipod 5 G6 Pods (Gen 5) subcutaneous cartridge) #45 ea 01/13/23 Juanita Cohesive Seal 2 diameter #15 ea 01/18/23 Esenta Sting Free Adhesive Remover Wipe - #15 ea 01/18/23 Esenta Sting Free Skin Barrier [place], 50 mL - #15 ea 01/18/23 Esteem + Convex One-Piece Drainable Pre-Cut Pouch w/ visiClose, Durahesive, 12 panel [place], 1 03/15 #15 ea 01/18/23 clopidogrel 75 mg tablet 75 mg PO DAILY heart health #90 tabs 02/04/23 pregabalin 75 mg capsule 75 mg PO BID pain #60 caps 02/04/23 blood sugar diagnostic (True Metrix Glucose Test Strip) #100 ea 02/08/23 buprenorphine 15 mcg/hour weekly transdermal patch 1 patch transdermal Q7D pain 02/10/23 melatonin 5 mg tablet 5 mg PO HS sleep 02/10/23 cyclobenzaprine 10 mg tablet 10 mg PO TID PRN muscle spasm #30 tabs 02/24/23 benzonatate 200 mg capsule 200 mg PO BID PRN cough #30 caps 03/10/23 insulin lispro 200 unit/mL (3 mL) subcutaneous pen (Humalog KwikPen U-200 Insulin) 130 unit (0.65 mL) subcut DAILY diabetes #60 mL 03/12/23 trazodone 50 mg tablet 50 mg PO QHS sleep 03/18/23 cholestyramine (with sugar) 4 gram powder for susp in a packet 4 g PO BIDAC stool #60 ea 03/31/23 dicyclomine 10 mg capsule 20 mg (2 x 10 mg) PO BID PRN abdominal pain #30 caps 03/31/23 diphenoxylate-atropine 2.5 mg-0.025 mg tablet (Lomotil) 1 tab PO TID diarrhea #90 tabs 03/31/23 pantoprazole 40 mg tablet,delayed release (Protonix) 40 mg PO BID GERD #60 tabs 03/31/23 dapagliflozin propanediol 10 mg tablet (Farxiga) 10 mg PO DAILY diabetes #90 tabs 04/03/23 Physical Exam Narrative GENERAL: cooperative HEENT: Atraumatic; normocephalic EYES; Anicteric, Normal Conjunctiva NECK; supple, normal thyroid, RESPIRATORY: Diminished to auscultation CARDIOVASCULAR: Regular S1 S2, GI: soft, normoactive bowel sounds, : No Renal angle tenderness; EXTREMITIES: No edema, no clubbing, MUSCULOSKELETAL: no muscle wasting NEURO: Awake; no lateralizing signs. SKIN: No Rash PSYCH; Flat affect Weight / BMI Weight Weight: 89.6 kg Body Mass Index (BMI) 30.9 ABG / Lab / Microbiology Data 04/15/23 06:10 04/15/23 06:10 Laboratory: Laboratory Results - last 24 hr 04/15/23 06:10: WBC 8.8, RBC 3.52 L, Hgb 9.6 L, Hct 31.3 L, MCV 88.9, MCH 27.3, MCHC 30.7 L, RDW Std Deviation 56.0 H, RDW Coeff of Jan 17.2 H, Plt Count 170, MPV 12.3 H, Immature Gran % (Auto) 1.800 H, Neut % (Auto) 46.9 L, Lymph % (Auto) 34.1, [place] % (Auto) 5.5, Eos % (Auto) 11.1 H, Baso % (Auto) 0.6, Absolute Neuts (auto) 4.1, Absolute Lymphs (auto) 2.99, Nucleated RBC % 0.2, Sodium 140, Potassium 4.2, Chloride 118 H, Carbon Dioxide 20.0 L, Anion Gap 2 L, BUN 27 H, Creatinine 2.23 H, Estim Creat Clear Calc 29.29, Est GFR (MDRD) Af Amer 28 L, Est GFR (MDRD) Non-Af 24 L, BUN/Creatinine Ratio 12.1, Glucose 124 H, Calcium 9.0 Microbiology: Microbiology 04/11/23 20:10 Stool Enteric Bacteriology - Final 04/11/23 20:10 Stool Clostridioides difficile (PCR) - Final D/C Instructions Discharge Diet: 1800 Calorie Control Diet Discharge Activity: Return to Normal Activity Call your doctor if you observe: Fever of 101 or Higher, Shortness of breath, Fainting spells and Chest pain Meaningful Use Info Meaningful Use Diagnoses (Choose all that apply): None applicable Discharge Plan Admission Admit Date/Time: 04/11/23 19:00 Attending Provider: Michael Etienne Primary Care Provider: Mala Mcgrath Consulting Providers: Kary Renae; Claudia Rico Discharge Orders/Prescriptions Prescriptions: Continued duloxetine 30 mg capsule,delayed release(DR/EC) 90 mg PO DAILY nitroglycerin 0.4 mg tablet, sublingual 0.4 mg sublingual Q5-15M PRN (Reason: chest pain) Qty: 25 6RF Rx Instructions: do not exceed 3 doses per episode buprenorphine 15 mcg/hour patch weekly 1 patch transdermal Q7D Patient Comments: changes on wednesday melatonin 5 mg tablet 5 mg PO HS lamotrigine 100 mg tablet 200 mg PO DAILY (DME) Handicap Placard See Rx Instructions .ROUTE .MEDSUPPLY Qty: 1 0RF Rx Instructions: [place] directed, [place] [place] True Metrix Glucose Test Strip Strip See Rx Instructions .Route Qty: 100 5RF Rx Instructions: TID cyclobenzaprine 10 mg tablet 10 mg PO TID PRN (Reason: muscle spasm) Qty: 30 0RF benzonatate 200 mg capsule 200 mg PO BID PRN (Reason: cough) Qty: 30 0RF dicyclomine 10 mg capsule 20 mg PO BID PRN (Reason: abdominal pain) Qty: 30 2RF diphenoxylate-atropine [Lomotil] 2.5-0.025 mg tablet 1 tab PO TID Qty: 90 2RF cholestyramine (with sugar) 4 gram powder in packet 4 g PO BIDAC Qty: 60 11RF pantoprazole [Protonix] 40 mg tablet,delayed release (DR/EC) 40 mg PO BID Qty: 60 11RF aspirin 81 mg Tablet,Delayed Release (Dr/Ec) 81 mg PO DAILY Hold Instructions: [place] 06[place]10[place]. [place] [place] True Metrix Glucose Test Strip Strip See Rx Instructions .Route Rx Instructions: 3 times per day No longer [place] [place] Dexcom G6 Paint Stripper [facility] [place] See Rx Instructions .ROUTE .MEDSUPPLY Rx Instructions: As directed [place] [place] pen needle, diabetic [BD Ultra-Fine Key Pen Needle] 32 gauge x 5/32 needle See Rx Instructions .ROUTE .MEDSUPPLY Rx Instructions: takes 5 injection/day [place] [place] Wheel Chair See Rx Instructions Rx Instructions: As directed metoprolol tartrate 50 mg tablet 50 mg PO .COMPLEX Rx Instructions: 50 mg orally twice a day with a 25 mg tablet twice a day to = 75 mg twice a day; trazodone 50 mg tablet 50 mg PO QHS [place] [place] ostomy supplies See Rx Instructions .Route .MEDSUPPLY Qty: 1 0RF Rx Instructions: Pouches Barrier rings Adhesive remover Skin Prep Barrier powder metoprolol tartrate 25 mg tablet 25 mg PO .COMPLEX Qty: 180 3RF Rx Instructions: 25 mg orally take with a 50 mg tablet twice a day to = 75 mg twice a day; atorvastatin 80 mg tablet 80 mg PO QHS Qty: 90 3RF Patient Comments: cholesterol (DME) Dexcom G6 Transmitter Device See Rx Instructions .ROUTE .MEDSUPPLY Qty: 1 3RF Rx Instructions: 1 transmitter every 90 days isosorbide dinitrate 30 mg tablet 30 mg PO BID Qty: 60 11RF (DME) Dexcom G6 Sensor Device See Rx Instructions .ROUTE .MEDSUPPLY Qty: 9 1RF Rx Instructions: 1 sensor every 10 days (DME) Omnipod 5 G6 Pods (Gen 5) Cartridge See Rx Instructions .Route Qty: 45 1RF Rx Instructions: 1 pod q 48 hours (DME) Juanita Cohesive Seal 2 diameter See Rx Instructions .Route .MEDSUPPLY Qty: 15 7RF Rx Instructions: As directed (DME) Esenta Sting Free Adhesive Remover Wipe - See Rx Instructions .Route .MEDSUPPLY Qty: 15 7RF Rx Instructions: As directed (DME) Esenta Sting Free Skin Barrier [place], 50 mL - See Rx Instructions .Route .MEDSUPPLY Qty: 15 7RF Rx Instructions: As directed (DME) Esteem + Convex One-Piece Drainable Pre-Cut Pouch w/ visiClose, Durahesive, 12 panel [place], 1 1/8 See Rx Instructions .Route .MEDSUPPLY Qty: 15 7RF Rx Instructions: As directed clopidogrel 75 mg tablet 75 mg PO DAILY Qty: 90 3RF Hold Instructions: Resume on 06/10/22. Rx Instructions: TAKE 1 TABLET BY MOUTH EVERY DAY pregabalin 75 mg capsule 75 mg PO BID Qty: 60 1RF Humalog KwikPen Insulin 200 unit/mL (3 mL) insulin pen 130 unit subcut DAILY Qty: 60 3RF Rx Instructions: 2.05 units/hr from 12 AM to 6:30 AM 2.15 units/hr from 6:30 AM to 12 AM dapagliflozin propanediol [Farxiga] 10 mg tablet 10 mg PO DAILY Qty: 90 1RF Referrals / Follow Up: Mala Mcgrath MD [Primary Care Provider] - Disposition Disposition (needs filled in before D/C Order can be placed): Home Health Service Charges/Coding Visit Charges Inpatient E&M: 90980 Disch Hosp >30min
--- NOTE | 2023-04-15 11:16 | PCM.PN.REN ---
Subjective Subjective Up in room. No overnight events. Objective Data Objective Data Vital Signs: Vital Signs Temp Pulse Resp BP Pulse Ox O2 Del Method 97.6 F L 65 20 H 159/68 H 96 Room Air 04/15/23 09:15 04/15/23 09:17 04/15/23 09:15 04/15/23 09:15 04/15/23 09:15 04/15/23 09:15 Oxygen Delivery Method Room Air Weight: 89.6 kg Body Mass Index (BMI) 30.9 Intake & Output: Intake and Output for Last 24 Hours 04/13/23 04/14/23 04/15/23 23:59 23:59 23:59 Intake Total 3903.33 / 3903.33 4786.67 / 4786.67 2506.67 / 2506.67 Balance 3903.33 / 3903.33 4786.67 / 4786.67 2506.67 / 2506.67 Lab / Micro Data 04/15/23 06:10 04/15/23 06:10 Labs: Laboratory Results - last 24 hr 04/15/23 06:10: WBC 8.8, RBC 3.52 L, Hgb 9.6 L, Hct 31.3 L, MCV 88.9, MCH 27.3, MCHC 30.7 L, RDW Std Deviation 56.0 H, RDW Coeff of Jan 17.2 H, Plt Count 170, MPV 12.3 H, Immature Gran % (Auto) 1.800 H, Neut % (Auto) 46.9 L, Lymph % (Auto) 34.1, [place] % (Auto) 5.5, Eos % (Auto) 11.1 H, Baso % (Auto) 0.6, Absolute Neuts (auto) 4.1, Absolute Lymphs (auto) 2.99, Nucleated RBC % 0.2, Sodium 140, Potassium 4.2, Chloride 118 H, Carbon Dioxide 20.0 L, Anion Gap 2 L, BUN 27 H, Creatinine 2.23 H, Estim Creat Clear Calc 29.29, Est GFR (MDRD) Af Amer 28 L, Est GFR (MDRD) Non-Af 24 L, BUN/Creatinine Ratio 12.1, Glucose 124 H, Calcium 9.0 Micro: Microbiology 04/11/23 20:10 Stool Enteric Bacteriology - Final 04/11/23 20:10 Stool Clostridioides difficile (PCR) - Final Physical Exam Narrative Alert awake oriented x 3 no obvious distress s1s2 no murmurs lungs clear abdomen soft no edema Assessment & Plan Assessment/Plan (1) RALPH (acute kidney injury): PLAN: Baseline creatinine is around 1.6-2.0. Usually has RALPH in the setting of volume depletion. Was emptying ileostomy bag almost every half an hour. SCr peaked 4.3 and today improved to 2.23mg/dL. Ileostomy output has improved/slowed down. She is on Questran, lomotil. RALPH is likely related to volume depletion. 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 Metabolic acidosis. Likely due to ileostomy. Improved Discharge to home today. Ok for discharge per renal. Will arrange for follow-up in [place] office. Will continue to hold the SGLT2 inhibitor for now.
--- NOTE | 2023-04-15 12:00 | CASEMGMT ---
Patient has order for discharge today. RN CM in to discuss needs at discharge. Patient denies needs or help at discharge. Patient had no further questions or concerns.
[2023-04-15 12:30] VITALS: BP 162/74; PULSE 74; RESP 18; TEMP 36.6; O2SAT 98
--- NOTE | 2023-04-15 12:41 | PHA.DC_ITS ---
Pharmacy [place] Med Reconciliation Pharmacy Service has performed discharge medication reconciliation for this patient. No new medications at time of discharge review. Medications reviewed are from previously reported home medications. The patient's discharge medication list was reviewed for discrepancies and discrepancies were resolved. Medications at Discharge Home Medications aspirin 81 mg tablet,delayed release 81 mg PO DAILY heart health 04/08/21 duloxetine 30 mg capsule,delayed release 90 mg PO DAILY depression 10/06/21 Wheel Chair 11/15/21 blood sugar diagnostic (True Metrix Glucose Test Strip) 11/15/21 blood-glucose meter,continuous (Dexcom G6 Architectural Associate) 11/15/21 pen needle, diabetic 32 gauge x 5/32 (BD Ultra-Fine Key Pen Needle) 11/15/21 nitroglycerin 0.4 mg sublingual tablet 0.4 mg sublingual Q5-15M PRN chest pain #25 tabs 11/20/21 ostomy supplies #1 ea 02/13/22 lamotrigine 100 mg tablet 200 mg PO DAILY mood stabilizer 07/20/22 metoprolol tartrate 25 mg tablet 25 mg PO .COMPLEX bp #180 tabs 07/28/22 atorvastatin 80 mg tablet 80 mg PO QHS CHOLESTEROL LOWERING #90 tabs 08/04/22 blood-glucose transmitter (Dexcom G6 Transmitter device) #1 ea 08/07/22 metoprolol tartrate 50 mg tablet 50 mg PO .COMPLEX blood pressure 09/02/22 Handicap Placard #1 ea 09/16/22 isosorbide dinitrate 30 mg tablet 30 mg PO BID heart #60 tabs 12/11/22 blood-glucose sensor (Dexcom G6 Sensor device) #9 ea 12/14/22 insulin pump cart,automated,BT (Omnipod 5 G6 Pods (Gen 5) subcutaneous cartridge) #45 ea 01/13/23 Juanita Cohesive Seal 2 diameter #15 ea 01/18/23 Esenta Sting Free Adhesive Remover Wipe - #15 ea 01/18/23 Esenta Sting Free Skin Barrier [place], 50 mL - #15 ea 01/18/23 Esteem + Convex One-Piece Drainable Pre-Cut Pouch w/ visiClose, Durahesive, 12 panel [place], 1 03/15 #15 ea 01/18/23 clopidogrel 75 mg tablet 75 mg PO DAILY [facility] #90 tabs 02/04/23 pregabalin 75 mg capsule 75 mg PO BID pain #60 caps 02/04/23 blood sugar diagnostic (True Metrix Glucose Test Strip) #100 ea 02/08/23 buprenorphine 15 mcg/hour weekly transdermal patch 1 patch transdermal Q7D pain 02/10/23 melatonin 5 mg tablet 5 mg PO HS sleep 02/10/23 cyclobenzaprine 10 mg tablet 10 mg PO TID PRN muscle spasm #30 tabs 02/24/23 benzonatate 200 mg capsule 200 mg PO BID PRN cough #30 caps 03/10/23 insulin lispro 200 unit/mL (3 mL) subcutaneous pen (Humalog KwikPen U-200 Insulin) 130 unit (0.65 mL) subcut DAILY diabetes #60 mL 03/12/23 trazodone 50 mg tablet 50 mg PO QHS sleep 03/18/23 cholestyramine (with sugar) 4 gram powder for susp in a packet 4 g PO BIDAC stool #60 ea 03/31/23 dicyclomine 10 mg capsule 20 mg (2 x 10 mg) PO BID PRN abdominal pain #30 caps 03/31/23 diphenoxylate-atropine 2.5 mg-0.025 mg tablet (Lomotil) 1 tab PO TID diarrhea #90 tabs 03/31/23 pantoprazole 40 mg tablet,delayed release (Protonix) 40 mg PO BID GERD #60 tabs 03/31/23 dapagliflozin propanediol 10 mg tablet (Farxiga) 10 mg PO DAILY diabetes #90 tabs 04/03/23
== END 2023-04-15 12:45 | disposition home health service (06) | DRG 683 ==
LOC: ED 16:51 → MS3 19:20
PROVIDERS: Admitting Provider Internal Medicine; Emergency Provider Emergency Medicine; PCP Internal Medicine; Referring Provider Internal Medicine; Visit Provider Internal Medicine
DX: N17.9 Acute kidney failure, unspecified (principal); K91.2 Postsurgical malabsorption, not elsewhere classified; E87.20 Acidosis, unspecified; I13.0 Hypertensive heart and chronic kidney disease with heart failure and stage 1 through stage 4 chronic kidney disease, or unspecified chronic kidney disease; I50.32 Chronic diastolic (congestive) heart failure; K51.90 Ulcerative colitis, unspecified, without complications; E11.22 Type 2 diabetes mellitus with diabetic chronic kidney disease; E11.42 Type 2 diabetes mellitus with diabetic polyneuropathy; D47.2 Monoclonal gammopathy; E86.0 Dehydration; J44.9 Chronic obstructive pulmonary disease, unspecified; N18.32 Chronic kidney disease, stage 3b; Z79.4 Long term (current) use of insulin; E11.43 Type 2 diabetes mellitus with diabetic autonomic (poly)neuropathy; Z93.2 Ileostomy status; K76.0 Fatty (change of) liver, not elsewhere classified; F32.A Depression, unspecified; K21.9 Gastro-esophageal reflux disease without esophagitis; K31.84 Gastroparesis; I25.10 Atherosclerotic heart disease of native coronary artery without angina pectoris; F41.9 Anxiety disorder, unspecified; L40.9 Psoriasis, unspecified; G47.33 Obstructive sleep apnea (adult) (pediatric); E78.5 Hyperlipidemia, unspecified; R19.8 Other specified symptoms and signs involving the digestive system and abdomen; G89.4 Chronic pain syndrome; Z79.82 Long term (current) use of aspirin; Z79.02 Long term (current) use of antithrombotics/antiplatelets; Z79.84 Long term (current) use of oral hypoglycemic drugs; Z86.16 Personal history of COVID-19; Z95.5 Presence of coronary angioplasty implant and graft; Z95.1 Presence of aortocoronary bypass graft; Z87.891 Personal history of nicotine dependence; Z99.81 Dependence on supplemental oxygen; Z96.41 Presence of insulin pump (external) (internal)
CPT/HCPCS: 36415; 70450; 73100; 73120; 76770; 80048; 80053; 80069; 80076; 82962; 83690; 83735; 84100; 84443; 85025; 87177; 87209; 87493; 87506; 99283; J7030; J7120; A4216

== ENCOUNTER 2023-04-16 11:14 | Outpatient (CLI) | payer MEDICARE, MEDICAID, SELFPAY ==
[2023-02-18 12:34] VITALS: BMI 30.9
[2023-04-16 11:23] VITALS: BP 158/79; PULSE 66; RESP 18; TEMP 36.3; O2SAT 94
[2023-04-16] MEDS: 0.9% Normal Saline (1000mL) 1,000 ML 999 ML IV (11:30)
--- OUTSIDE RECORDS SUMMARY | 2023-04-16 11:35 | XMS RPT_ITS | CCD ---
Author Name Unknown Address [address] [place] [address] Organization [facility] Care Team Providers Care Logistics Specialist Name Role Phone GERBER, DEAN C Unavailable [...] PCP Unavailable Unavailable Oleghe, Efewongbe B Unavailable Unavailable Unavailable OLEGHE, EFEWONGBE B Primary Care Unavailable EDWIGE JOY Attending Unavailable FRIEND, JACQUELINE Zurita Referring Unavailable Allergies Allergy Classification Reported Allergen(s) Allergy Type Date of Onset Reaction(s) Facility Anticholinergics (1 source) Dicyclomine; Translations: [dicyclomine] Drug Allergy [facility] [place] [address] Work Phone: liraglutide (1 source) liraglutide; Translations: [Victoza SOPN] [facility] Work Phone: metFORMIN (1 source) metFORMIN; Translations: [metformin] Drug Allergy [facility] [place] [address] Work Phone: Nitroimidazoles (antibiotic) (1 source) metroNIDAZOLE; Translations: [Flagyl] Drug Allergy [place] [address] Work Phone: Penicillins (antibiotic) (1 source) Penicillins; Translations: [Penicillins] Drug Allergy [place] [address] Work Phone: Sulfonamides (antibiotic) (1 source) Sulfonamides (Antibiotic); Translations: [Sulfa Drugs] Drug Allergy [place] [address] Work Phone: Unclassified (1 source) Cinnamon Flavor OIL; Translations: [Cinnamon Flavor OIL] Allergy to drug (finding) [place] [address] Work Phone: (2 sources) cinnamon preparation; Translations: [CINNAMON] Drug Allergy 9 [facility] Repository (2 sources) codeine; Translations: [CODEINE] Drug Allergy 9 [facility] Repository (4 sources) dicyclomine; Translations: [DICYCLOMINE] Drug Allergy 4 [facility] Repository (2 sources) influenza virus vaccine; Translations: [FLU VACC [id number] 65YR UP(PF)] Drug Allergy 6 [facility] Repository (2 sources) liraglutide; Translations: [LIRAGLUTIDE] Drug Allergy 7 [facility] Repository (2 sources) metFORMIN; Translations: [METFORMIN HCL] Drug Allergy 4 [facility] Repository (2 sources) metroNIDAZOLE; Translations: [METRONIDAZOLE HCL] Drug Allergy 4 [facility] Repository (4 sources) Penicillins; Translations: [PENICILLINS] Propensity to adverse reactions to drug (disorder) 9 [facility] Repository (2 sources) sulfaSALAzine; Translations: [SULFASALAZINE] Drug Allergy 9 [facility] Repository (2 sources) Sulfonamides (Antibiotic); Translations: [SULFA (SULFONAMIDE ANTIBIOTICS)] Propensity to adverse reactions to drug (disorder) 9 [facility] Repository (2 sources) INFLUENZA VIRUS VACCINES; Translations: [INFLUENZA VIRUS VACCINES] Propensity to adverse reactions [facility] drug (disorder) [facility] ([facility]) liraglutide Drug Allergy [facility] 120 Work Phone: (2 sources) metFORMIN Drug Allergy [facility] Work Phone: (2 sources) metroNIDAZOLE Drug Allergy [facility] 120 Work Phone: (2 sources) Sulfonamides (Antibiotic) Allergy to drug (finding) [facility] 120 Work Phone: (1 source) Hmg-Coa Reductase Inhibitors (Statins); Translations: [[id number] REDUCTASE INHIBITORS] Propensity to adverse reactions to drug (disorder) 4 [facility] Repository (1 source) ranolazine; Translations: [RANOLAZINE] Drug Allergy 9 [facility] Repository Medications Completed/Discontinued Medications Medication [...] [Coronary atherosclerosis of unspecified type of vessel, kasaan or graft] Chronic Coronary atherosclerosis and other [...] / Z87.891(ICD-10) Onset: 10-21-2016 Unclassified (1 source) 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 / Z79.82(ICD-10) Onset: [...] (Body Mass Index) 30.54 kg/m2 Brennan Duque [facility] 120 Work Phone: 12-20-2019 11:35-0400 Body Temperature 98.2 [degF] Brennan Duque [facility] 120 Work Phone: 12-20-2019 11:35-0400 Body weight 88.45 kg Brennan Duque [facility] [place] 120 Work Phone: 12-20-2019 11:35-0400 BP Diastolic 70 mm[Hg] [facility] 120 Work Phone: 12-20-2019 11:35-0400 BP Systolic 120 mm[Hg] Brennan Duque [facility] 120 Work Phone: 12-20-2019 11:35-0400 BSA (Body Surface Area) 2 m2 Brennan Duque [facility] 120 Work Phone: 12-20-2019 11:35-0400 Height 170.18 cm Brennna Duque [facility] 120 Work Phone: 11-30-2019 11:55-0400 BMI (Body Mass Index) 30.54 kg/m2 Brennan Duque [facility] 120 Work Phone: 11-30-2019 11:55-0400 Body weight 88.45 kg Brennan Duque [facility] 120 Work Phone: 11-30-2019 11:55-0400 BP Diastolic 60 mm[Hg] Brennan Duque [facility] 120 Work Phone: 11-30-2019 11:55-0400 BP Systolic 122 mm[Hg] Brennan Duque [facility] 120 Work Phone: 11-30-2019 11:55-0400 BSA (Body Surface Area) 2 m2 Brennan Duque [facility] 120 Work Phone: 11-30-2019 11:55-0400 Height 170.18 cm Brennan Duque [facility] 120 Work Phone: 11-30-2019 11:55-0400 Pulse (Heart Rate) 66 /min Brennan Duque [facility] 120 Work Phone: 11-30-2019 11:55-0400 Pulse Oximetry 96 % Brennan Duque [facility] 120 Work Phone: Encounters Encounter Date Encounter Type Care Provider Facility Start: 02-18-2022 End: 02-18-2022 ambulatory MALA MADRIGAL Facility:[facility] Start: 10-23-2020 Rx Renewal Mala Zurita [place] Work Phone: [facility] Work Phone: Start: 12-20-2019 Patient encounter procedure Brennan Duque [facility] [facility] Work Phone: Start: 11-30-2019 Patient encounter procedure Brennan Duque [facility] 120 Work Phone: Start: 07-06-2017 Ambulatory DEAN May GERBER [facility] Start: 10-21-2016 End: 10-21-2016 Ambulatory Huma Ocasio Facility[facility] Start: 10-08-2016 Ambulatory Mena Brown Fac ility:[facility] Start: 09-03-2016 Ambulatory Alireza Tavares [facility] Procedures Date Procedure Procedure Detail Performing [...] Brennan Duque, Status: Pen, Time: 10:00 AM [facility] Work Phone: Payers Date Payer Category Payer Unknown [id number] Unknown [id number] Unknown Social History Date Type Detail Facility Former smoker [facility] Work Phone: NEGATED: Highlighted row - - [facility] 120 Work Phone: Medical Equipment [...] Type Note Facility 02-18-2022 Note HNO ID: [id number] Author: Edwige Joy RD Service: ? Author [...] in the bag) Lunch - meals of [employer]/meal delivery service, meat balls and spaghetti, chicken, [...] sand which with salami, ham, cheese sometimes (british virgin islander, montserratian) Beverages - diet coke drinks all day [...] [Metronidazole Hcl], Fluzone High-Dose (Pf) [Flu Vacc [id number] 65yr Up(Pf)], Glucophage [Metformin Hcl], Influenza Virus Vaccines, Penicillins, Ranexa [Ranolazine], Sulfa (Sulfonamide Antibiotics), Victoza [Liraglutide], and Tvacxev-Jld-Wmm Reductase Inhibitors Medications: Current Outpatient Medications Medication [...] EV (more content not included)... [facility] Summary Purpose Family History [...] DATE CREATED AUTHOR AUTHOR'S ORGANIZ ATION 08/31/2017 [facility] DATE CREATED AUTHOR AUTHOR'S ORGANIZ ATION 09/01/2017 [facility] DATE CREATED AUTHOR AUTHOR'S ORGANIZ ATION 09/01/2017 [facility] DATE CREATED AUTHOR AUTHOR'S ORGANIZ ATION 06/18/2020 [employer] DATE CREATED AUTHOR AUTHOR'S ORGANIZ ATION 02/14/2021 [facility] DATE CREATED AUTHOR AUTHOR'S ORGANIZ ATION 02/25/2022 [facility] FOR RECORDS PERTAINING TO [...] BE BASED ON THE PRIMARY CLINICAL RECORDS. [facility] [employer] [facility]. provides no warranty or guarantee of the accuracy or completeness of information in this document.
[2023-04-16 12:44] VITALS: BP 167/58; PULSE 66; RESP 16
== END 2023-04-16 11:15 | disposition home or self-care (01) ==
LOC: MEDOUTP 11:15
PROVIDERS: PCP Internal Medicine; Referring Provider Internal Medicine Gastroenterology; Visit Provider Internal Medicine Gastroenterology
DX: E86.0 Dehydration (principal); R19.8 Other specified symptoms and signs involving the digestive system and abdomen
CPT/HCPCS: 96360; J7030; A4216

== ENCOUNTER → 2023-04-21 | Outpatient (CLI) | payer MEDICARE, MEDICAID, SELFPAY ==
[2023-02-18 12:34] VITALS: BMI 30.9
--- NOTE | 2023-04-21 13:05 | RAD_ITS ---
STUDY: X-RAY - LEFT WRIST REASON FOR EXAM: Female, 62 years old. Wrist pain, swelling TECHNIQUE: 3 view(s) of the wrist were obtained. COMPARISON: Comparison is made with prior study April 14, 2023. FINDINGS: Normal visualized distal radius and ulna. Normal radiocarpal articulation. Normal distal radioulnar articulation. Normal carpal bones. Normal carpal articulations. Normal carpometacarpal articulation of the thumb. Normal second through fifth carpometacarpal articulations. Normal visualized metacarpal bones. Soft tissue swelling. Calcification of the triangular fibrocartilage. RAD/Wrist min 3 Views IMPRESSION: Soft tissue swelling. Electronically Signed: Eric Spencer MD at 15:24 EST ,
[2023-04-21 13:44] LABS: Anion Gap 4 (5-15); BUN 35 mg/dL (7-18); BUN/Creat Ratio 15.3 RATIO (10-20); Calcium,Total 8.8 mg/dL (8.5-10.1); Chloride 110 mmol/L (98-107); Creatinine, Serum 2.29 mg/dL (0.55-1.02); EST Glomerular Filtration Rate 23 mL/min (>60); Est Glom Filt Rate - Afr Amer 28 mL/min (>60); Glucose 254 mg/dL (74-106); Magnesium 1.4 mg/dL (1.6-2.6); Sodium Level 141 mmol/L (136-145)
[2023-04-21 13:46] LABS: Vitamin B12 436 pg/mL (211-911)
== END | disposition home or self-care (01) ==
LOC: LAB 12:45
PROVIDERS: PCP Internal Medicine; Referring Provider Nurse Practitioner; Visit Provider Nurse Practitioner
DX: M25.532 Pain in left wrist (principal); R41.3 Other amnesia
CPT/HCPCS: 36415; 73110; 80048; 82607; 83735

== ENCOUNTER 2023-04-23 10:14 | Outpatient (CLI) | payer MEDICARE, MEDICAID, SELFPAY ==
[2023-02-18 12:34] VITALS: BMI 30.9
[2023-04-23 10:28] VITALS: BP 123/96; PULSE 64; RESP 16; TEMP 35.5; O2SAT 96; BMI 31.3
[2023-04-23] MEDS: 0.9% NaCl Peripheral Flush Adult/Peds IV (10:39)
--- OUTSIDE RECORDS SUMMARY | 2023-04-23 10:39 | XMS RPT_ITS | CCD ---
Author Name Unknown Address [address] [place] [address] Organization [facility] Care Team Providers Care Web Interface Developer Name Role Phone GERBER, DEAN C Unavailable Unavailable GERBER, DEAN C Unavailable Unavailable Corkwell, Clarita Unavailable Unavailable Corkwell, Clarita Unavailable Unavailable PCP, Pt states no Unavailable Unavailable Oleghe, Efewongbe Meme Unavailable Unav ailable Glessing, Huma Juan Unavailable Unavaila ble Glessing, Huma Juan Unavailable Unavaila ble Oleghe, Efewongbe Emme Unavailable Unav ailable Glessing, Huma Juan Unavailable Unavaila ble Turowski, Alireza Unavailable Unavailable PROVIDER, UNKNOWN Unavailable Unavailable Baltazar, Dmitry Unavailable Unavailable Thomae, Brennan Unavailable Unavailable Oleghe, Efewongbe B Unavailable Unavailable None, No PCP Unavailable Unavailable None, No PCP Unavailable Unavailable Oleghe, Efewongbe B Unavailable [phone] Unavailable Unavailable OLEGHE, EFEWONGBE B Primary Care Unavailable EDWIGE JOY Attending Unavailable FRIEND, JACQUELINE Zurita Referring Unavailable Allergies Allergy Classification Reported Allergen(s) Allergy Type Date of Onset Reaction(s) Facility Anticholinergics (1 source) Dicyclomine; Translations: [dicyclomine] Drug Allergy [facility] [place] [address] Work Phone: liraglutide (1 source) liraglutide; Translations: [Victoza SOPN] [facility] Work Phone: metFORMIN (1 source) metFORMIN; Translations: [metformin] Drug Allergy [facility] [place] [address] Work Phone: Nitroimidazoles (antibiotic) (1 source) metroNIDAZOLE; Translations: [Flagyl] Drug Allergy [place] [address] Work Phone: Penicillins (antibiotic) (1 source) Penicillins; Translations: [Penicillins] Drug Allergy [place] [address] Work Phone: Sulfonamides (antibiotic) (1 source) Sulfonamides (Antibiotic); Translations: [Sulfa Drugs] Drug Allergy [place] [address] Work Phone: Unclassified (1 source) Cinnamon Flavor OIL; Translations: [Cinnamon Flavor OIL] Allergy to drug (finding) [place] [address] Work Phone: (2 sources) cinnamon preparation; Translations: [CINNAMON] Drug Allergy 9 [facility] Repository (2 sources) codeine; Translations: [CODEINE] Drug Allergy 9 [facility] Repository (4 sources) dicyclomine; Translations: [DICYCLOMINE] Drug Allergy 4 [facility] Repository (2 sources) influenza virus vaccine; Translations: [FLU VACC [id number] 65YR UP(PF)] Drug Allergy 6 [facility] Repository (2 sources) liraglutide; Translations: [LIRAGLUTIDE] Drug Allergy 7 [facility] Repository (2 sources) metFORMIN; Translations: [METFORMIN HCL] Drug Allergy 4 [facility] Repository (2 sources) metroNIDAZOLE; Translations: [METRONIDAZOLE HCL] Drug Allergy 4 [facility] Repository (4 sources) Penicillins; Translations: [PENICILLINS] Propensity to adverse reactions to drug (disorder) 9 [facility] Repository (2 sources) sulfaSALAzine; Translations: [SULFASALAZINE] Drug Allergy 9 [facility] Repository (2 sources) Sulfonamides (Antibiotic); Translations: [SULFA (SULFONAMIDE ANTIBIOTICS)] Propensity to adverse reactions to drug (disorder) 9 [facility] Repository (2 sources) INFLUENZA VIRUS VACCINES; Translations: [INFLUENZA VIRUS VACCINES] Propensity to adverse reactions to drug (disorder) [facility] ([facility] sources) liraglutide Drug Allergy [facility] 120 Work Phone: (2 sources) metFORMIN [facility] Work Phone: (2 sources) metroNIDAZOLE Drug Allergy [facility] 120 Work Phone: (2 sources) Sulfonamides (Antibiotic) Allergy to drug (finding) [facility] 120 Work Phone: (1 source) Hmg-Coa Reductase Inhibitors (Statins); Translations: [UOWTFBI-BDQ-TPF REDUCTASE INHIBITORS] Propensity to adverse reactions to drug (disorder) 4 [facility] Repository (1 source) ranolazine; Translations: [RANOLAZINE] Drug Allergy 9 [facility] Repository Medications Completed/Discontinued Medications Medication [...] [Coronary atherosclerosis of unspecified type of vessel, chitimacha or graft] Chronic Coronary atherosclerosis and other [...] / Z87.891(ICD-10) Onset: 10-21-2016 Unclassified (1 source) jail (current) use of aspirin / Z79.82(ICD-10) Onset: [...] (Body Mass Index) 30.54 kg/m2 Brennan Duque [facility] 120 Work Phone: 12-20-2019 11:35-0400 Body Temperature 98.2 [degF] Brennan Duque [facility] 120 Work Phone: 12-20-2019 11:35-0400 Body weight 88.45 kg Brennan Duque [facility] 120 Work Phone: 12-20-2019 11:35-0400 BP Diastolic 70 mm[Hg] [facility] 120 Work Phone: 12-20-2019 11:35-0400 BP Systolic 120 mm[Hg] Brennan Duque [facility] 120 Work Phone: 12-20-2019 11:35-0400 BSA (Body Surface Area) 2 m2 Brennan Duque [facility] 120 Work Phone: 12-20-2019 11:35-0400 Height 170.18 cm Brennan Duque [facility] 120 Work Phone: 11-30-2019 11:55-0400 BMI (Body Mass Index) 30.54 kg/m2 Brennan Duque [facility] 120 Work Phone: 11-30-2019 11:55-0400 Body weight 88.45 kg Brennan Duque [facility] 120 Work Phone: 11-30-2019 11:55-0400 BP Diastolic 60 mm[Hg] Brennan Duque [facility] 120 Work Phone: 11-30-2019 11:55-0400 BP Systolic 122 mm[Hg] Brennan Duque [facility] 120 Work Phone: 11-30-2019 11:55-0400 BSA (Body Surface Area) 2 m2 Brennan Duque [facility] 120 Work Phone: 11-30-2019 11:55-0400 Height 170.18 cm Brennan Duque [facility] 120 Work Phone: 11-30-2019 11:55-0400 Pulse (Heart Rate) 66 /min Brennan Duque [facility] 120 Work Phone: 11-30-2019 11:55-0400 Pulse Oximetry 96 % Brennan Duque [facility] 120 Work Phone: Encounters Encounter Date Encounter Type Care Provider Facility Start: 02-18-2022 End: 02-18-2022 ambulatory MALA MADRIGAL Facility:[facility] Start: 10-23-2020 Rx Renewal Mala Zurita [place] [facility]: [facility] Work Phone: Start: 12-20-2019 Patient encounter procedure Brennan Duque [facility] [facility] 120 Work Phone: Start: 11-30-2019 Patient encounter procedure Brennan Duque [facility] [facility] 120 Work Phone: Start: 07-06-2017 Ambulatory DEAN May GERBER [facility] Start: 10-21-2016 End: 10-21-2016 Ambulatory Huma Ocasio Facility:[facility] Start: 10-08-2016 Ambulatory Mena Brown Fac ility:[facility] Start: 09-03-2016 Ambulatory Alireza Tavares [facility] Procedures Date Procedure Procedure Detail Performing [...] Brennan Duque, Status: Pen, Time: 10:00 AM [facility] 120 Work Phone: Payers Date Payer Category Payer Unknown [id number] Unknown [id number] Unknown Social History Date Type Detail Facility Former smoker [facility] Work Phone: NEGATED: Highlighted row - - [facility] 120 Work Phone: Medical Equipment [...] Type Note Facility 02-18-2022 Note HNO ID: [id number] Author: Edwige Joy RD Service: ? Author [...] in the bag) Lunch - meals of [employer]/meal delivery service, meat balls and spaghetti, chicken, [...] sand which with salami, ham, cheese sometimes (romanian, palauan) Beverages - diet coke drinks all day [...] [Metronidazole Hcl], Fluzone High-Dose (Pf) [Flu Vacc [id number] 65yr Up(Pf)], Glucophage [Metformin Hcl], Influenza Virus Vaccines, Penicillins, Ranexa [Ranolazine], Sulfa (Sulfonamide Antibiotics), Victoza [Liraglutide], and Hrvfylw-Zgi-Cbv Reductase Inhibitors Medications: Current Outpatient Medications Medication [...] BY MOUTH EV (more content not included)... [facility] Summary Purpose Family History No Family [...] DATE CREATED AUTHOR AUTHOR'S ORGANIZ ATION 08/31/2017 [facility] DATE CREATED AUTHOR AUTHOR'S ORGANIZ ATION 09/01/2017 [facility] DATE CREATED AUTHOR AUTHOR'S ORGANIZ ATION 09/01/2017 [facility] DATE CREATED AUTHOR AUTHOR'S ORGANIZ ATION 06/18/2020 [employer] DATE CREATED AUTHOR AUTHOR'S ORGANIZ ATION 02/14/2021 [facility] DATE CREATED AUTHOR AUTHOR'S ORGANIZ ATION 02/25/[address] [facility] FOR RECORDS PERTAINING TO PATIENTS WHO [...] BE BASED ON THE PRIMARY CLINICAL RECORDS. [facility] [employer] [facility]. provides no warranty or guarantee of the accuracy or completeness of information in this document.
[2023-04-23] MEDS: 0.9% Normal Saline (1000mL) 1,000 ML 999 ML IV (10:41)
[2023-04-23 11:57] VITALS: BP 130/53; PULSE 62; RESP 16; TEMP 36; O2SAT 96
== END 2023-04-23 10:15 | disposition home or self-care (01) ==
LOC: MEDOUTP 10:14
PROVIDERS: PCP Internal Medicine; Referring Provider Internal Medicine Gastroenterology; Visit Provider Internal Medicine Gastroenterology
DX: E86.0 Dehydration (principal); R19.8 Other specified symptoms and signs involving the digestive system and abdomen
CPT/HCPCS: 96360; 96361; J7030; A4216

== ENCOUNTER 2023-04-30 11:33 | Outpatient (CLI) | payer MEDICARE, MEDICAID, SELFPAY ==
[2023-02-18 12:34] VITALS: BMI 30.9
[2023-04-30 11:35] VITALS: BP 133/66; PULSE 77; RESP 16; TEMP 516.1; TEMP 961; O2SAT 95
[2023-04-30] MEDS: 0.9% NaCl Peripheral Flush Adult/Peds IV (11:40)
[2023-04-30] MEDS: 0.9% Normal Saline (1000mL) 1,000 ML 999 ML IV (11:44)
[2023-04-30 12:55] VITALS: BP 132/62; PULSE 76; RESP 16
== END 2023-04-30 11:34 | disposition home or self-care (01) ==
PROVIDERS: PCP Internal Medicine; Referring Provider Internal Medicine Gastroenterology; Visit Provider Internal Medicine Gastroenterology
DX: E86.0 Dehydration (principal); R19.8 Other specified symptoms and signs involving the digestive system and abdomen
CPT/HCPCS: J7030; A4216

== ENCOUNTER 2023-05-01 10:07 | Inpatient (IN) | payer MEDICARE, MEDICAID, SELFPAY ==
[2023-02-18 12:34] VITALS: BMI 30.9
[2023-05-01] VITALS (8 sets, daily range): BP systolic 118–144; BP diastolic 49–95; PULSE 74–85; RESP 16–18; TEMP 36.3–36.9; O2SAT 95–98; BMI 30.2
--- NOTE | 2023-05-01 10:29 | EX.ED.DYSGE1 ---
HPI History of Present Illness Chief Complaint: Weakness Informant: patient and family Onset/Context/Timing Onset: Days Context: Gradual Onset Timing: Continuous and Intermittent Current Severity: Mild Maximum Severity: Mild Narrative Narrative: 62-year-old female extensive past medical history CAD, CKD, COPD, CHF, insulin-dependent diabetes. Patient has known history of short gut syndrome with high output ileostomy. She gets scheduled IV fluids generally weekly. She just got IV fluids yesterday as an outpatient. She has been having nausea vomiting she has chronic diarrhea. No fever. No dysuria. Says she has had decreased urine output and recently has had admissions for worsening kidney function. Prior similar symptoms: Yes Recent Illness/Hospitalization: Yes PFSH [facility] Medical History Acute kidney injury Anxiety Anxiety and depression Arthritis Avascular necrosis of bone of left hip BiPAP (biphasic positive airway pressure) dependence BMI 31.0-31.9,adult CAD (coronary artery disease) Cardiology follow-up encounter Cellulitis, abdominal wall Chronic back pain Chronic diastolic (congestive) heart failure Chronic narcotic use Chronic pain Chronic respiratory failure Chronic respiratory failure with hypoxia, on home O2 therapy CKD (chronic kidney disease), stage IV Congestive heart failure (CHF) COPD (chronic obstructive pulmonary disease) COPD (chronic obstructive pulmonary disease) Depression Depression with anxiety Diabetic gastroparesis DM2 (diabetes mellitus, type 2) Elevated anti-tissue transglutaminase (tTG) IgA level Fatty liver FCHL (familial combined hyperlipidemia) Former smoker Gastric reflux Gastroparesis High output ileostomy History of CAD (coronary artery disease) History of COVID-19 Hx of diabetic gastroparesis Hyperlipidemia Hypertension Ileostomy present Insulin dependent diabetes mellitus Left shoulder pain Liver mass Loss of hearing Malaise and fatigue Menieres disease MGUS (monoclonal gammopathy of unknown significance) Migraine headache Myoclonic jerking Non-alcoholic fatty liver disease Nonalcoholic steatohepatitis Obesity Obstructive sleep apnea Psoriasis Rheumatoid arthritis Secondary pulmonary arterial hypertension Short bowel syndrome Sleep apnea Smoking greater than 20 pack years Tremor Type 2 diabetes mellitus with diabetic polyneuropathy Ulcerative colitis Vitamin B12 deficiency Vitamin D deficiency Walker as ambulation aid Wears glasses Home Medications aspirin 81 mg tablet,delayed release 81 mg PO DAILY heart health 04/08/21 [History Last Taken 04/30/23] duloxetine 30 mg capsule,delayed release 90 mg PO DAILY depression 10/06/21 [History Last Taken 04/30/23] Wheel Chair 11/15/21 [History Last Taken Unknown] blood sugar diagnostic (True Metrix Glucose Test Strip) 11/15/21 [History Last Taken Unknown] blood-glucose meter,continuous (Dexcom G6 Crane Hoist Or Lift Operator) 11/15/21 [History Last Taken Unknown] pen needle, diabetic 32 gauge x 5/32 (BD Ultra-Fine Key Pen Needle) 11/15/21 [History Last Taken Unknown] nitroglycerin 0.4 mg sublingual tablet 0.4 mg sublingual Q5-15M PRN chest pain #25 tabs 11/20/21 [Rx Last Taken Unknown] ostomy supplies #1 ea 02/13/22 [Rx Last Taken Unknown] atorvastatin 80 mg tablet 80 mg PO QHS CHOLESTEROL LOWERING #90 tabs 08/04/22 [Rx Last Taken 04/30/23] blood-glucose transmitter (Dexcom G6 Transmitter device) #1 ea 08/07/22 [Rx Last Taken Unknown] metoprolol tartrate 50 mg tablet 50 mg PO .COMPLEX blood pressure 09/02/22 [History Last Taken 04/30/23] Handicap Placard #1 ea 09/16/22 [Rx Last Taken Unknown] isosorbide dinitrate 30 mg tablet 30 mg PO BID heart #60 tabs 12/11/22 [Rx Last Taken 04/30/23] blood-glucose sensor (Dexcom G6 Sensor device) #9 ea 12/14/22 [Rx Last Taken Unknown] insulin pump cart,automated,BT (Omnipod 5 G6 Pods (Gen 5) subcutaneous cartridge) #45 ea 01/13/23 [Rx Last Taken Unknown] Juanita Cohesive Seal 2 diameter #15 ea 01/18/23 [Rx Last Taken Unknown] Esenta Sting Free Adhesive Remover Wipe - #15 ea 01/18/23 [Rx Last Taken Unknown] Esenta Sting Free Skin Barrier [place], 50 mL - #15 ea 01/18/23 [Rx Last Taken Unknown] Esteem + Convex One-Piece Drainable Pre-Cut Pouch w/ visiClose, Durahesive, 12 panel [place], 1 03/15 #15 ea 01/18/23 [Rx Last Taken Unknown] clopidogrel 75 mg tablet 75 mg PO DAILY heart health #90 tabs 02/04/23 [Rx Last Taken 04/30/23] blood sugar diagnostic (True Metrix Glucose Test Strip) #100 ea 02/08/23 [Rx Last Taken Unknown] buprenorphine 15 mcg/hour weekly transdermal patch 1 patch transdermal Q7D pain 02/10/23 [History Last Taken 05/01/23] melatonin 5 mg tablet 5 mg PO HS sleep 02/10/23 [History Last Taken 04/30/23] cyclobenzaprine 10 mg tablet 10 mg PO TID PRN muscle spasm #30 tabs 02/24/23 [Rx Last Taken 04/30/23] benzonatate 200 mg capsule 200 mg PO BID PRN cough #30 caps 03/10/23 [Rx Last Taken Unknown] trazodone 50 mg tablet 50 mg PO QHS sleep 03/18/23 [History Last Taken 04/30/23] cholestyramine (with sugar) 4 gram powder for susp in a packet 4 g PO BIDAC stool #60 ea 03/31/23 [Rx Last Taken 04/30/23] dicyclomine 10 mg capsule 20 mg (2 x 10 mg) PO BID PRN abdominal pain #30 caps 03/31/23 [Rx Last Taken 04/30/23] diphenoxylate-atropine 2.5 mg-0.025 mg tablet (Lomotil) 1 tab PO TID diarrhea #90 tabs 03/31/23 [Rx Last Taken 05/01/23] dapagliflozin propanediol 10 mg tablet (Farxiga) 10 mg PO DAILY diabetes #90 tabs 04/03/23 [Rx Last Taken 04/30/23] insulin lispro 200 unit/mL (3 mL) subcutaneous pen (Humalog KwikPen U-200 Insulin) 160 unit (0.8 mL) subcut DAILY diabetes #72 mL 04/21/23 [Rx Last Taken Unknown] metoprolol tartrate 25 mg tablet 25 mg PO .COMPLEX bp #180 tabs 04/29/23 [Rx Last Taken 04/30/23] pantoprazole 40 mg tablet,delayed release (Protonix) 40 mg PO BID GERD #60 tabs 04/29/23 [Rx Last Taken 04/30/23] pregabalin 75 mg capsule 75 mg PO BID #56 caps 04/29/23 [Rx Last Taken 04/30/23] duloxetine 60 mg capsule,delayed release 60 mg PO DAILY 05/01/23 [History Last Taken 04/30/23] lamotrigine 200 mg tablet 200 mg PO DAILY 05/01/23 [History Last Taken 04/30/23] Allergy/AdvReac Type Severity Reaction Status Date / Time ciprofloxacin Allergy Intermediate Swelling Verified 05/01/23 10:08 cinnamon [Cinnamon] Allergy Anaphylaxis Verified 05/01/23 10:08 Influenza Virus Vaccines Allergy Shortness Verified 05/01/23 10:08 of breath liraglutide [From Victoza] Allergy Anaphylaxis Verified 05/01/23 10:08 metformin [From Glucophage] Allergy NEEDS Verified 05/01/23 10:08 FOLLOW-UP metronidazole [From Flagyl] Allergy Hives Verified 05/01/23 10:08 Metronidazole HCl Allergy Hives Verified 05/01/23 10:08 [From Flagyl] Penicillins Allergy Hives Verified 05/01/23 10:08 Sulfa (Sulfonamide Allergy Hives Verified 05/01/23 10:08 Antibiotics) aripiprazole [From Abilify] AdvReac hallucinati Verified 05/01/23 10:08 ons codeine AdvReac Stops Verified 05/01/23 10:08 Ileostomy metformin HCl AdvReac Nausea Verified 05/01/23 10:08 [From Glucophage] ranolazine AdvReac Nausea/Vom/ Verified 05/01/23 10:08 Diarrhea [id number]-OPD-JbA Reductase AdvReac Nausea/joints Verified 05/01/23 10:08 Inhibitor ache [[id number]-Mqm Reductase Inhibitor] Family History Mother CVA (cerebral vascular accident) Diabetes Brother Heart disease of CAD at 65 Myocardial infarction Pancreatitis Father Cancer lymphomia Lymphoma Grandmother Myocardial infarction of [place] in her 70s Sister COPD (chronic obstructive pulmonary disease) Surgical History H/O colectomy H/O coronary artery bypass surgery (05/18/12) H/O sinus surgery H/O total hysterectomy history closed fissure History of appendectomy History of History of cardiac catheterization History of cholecystectomy History of coronary artery stent placement (01/12/18) History of coronary artery stent placement ileostomy Ileostomy status left thumb surgery Status post total hip replacement, left Social History household members: none Smoking Status: Former smoker quit date: 03/08/12 how long ago did patient quit smoking: quit in 2013; 0.5-1ppd x 30yrs alcohol intake: never substance use type: does not use diet: diabetic caffeine: No eating out: 1-3 times/week what type of physical activity do you participate in: none seatbelt use: always do you feel safe at home: Yes ROS ROS ED ROS Narrative Nausea, vomiting, chronic diarrhea. Generalized weakness. Review of Systems ROS Unobtainable: Denies due to encephalopathy Constitutional Constitutional ED: Denies chills or fever(s) Eyes Eyes: Denies blurry vision ENT ENT ED: Denies ear pain Cardiovascular Cardiovascular: Denies chest pain Respiratory/Chest Respiratory/Chest: Denies cough or dyspnea Gastrointestinal Gastrointestinal: Reports diarrhea, nausea and vomiting; Denies abdominal pain, constipation or melena Genitourinary Genitourinary ED: Denies dysuria or hematuria Musculoskeletal Musculoskeletal: Denies arthralgias Integumentary Denies abscess Neurologic Neurologic: Denies headache(s) Psychiatric Psychiatric: Denies anxiety Endocrine Endocrinology: Denies cold intolerance Hematologic/Lymphatic Hematologic/Lymphatic: Reports none Allergic/Immunologic Allergic/Immunologic ED: Denies mouth swelling, tongue swelling or urticaria EXAM Physical Exam Narrative Exam Narrative: 62-year-old female vital signs stable afebrile. Pulse ox 98% on room air no hypoxia. HEENT exam dry mucous membranes otherwise unremarkable. Lungs clear to auscultation. Heart regular rhythm rate about 85 no murmur. Chest wall nontender. Abdomen soft nontender. Left lower quadrant ileostomy with liquid stool. Moving all 4 extremities. Nontender no edema. Normal motor strength. Neurologically she is awake and alert. No focal motor deficits. Const Vital Signs: 05/01/23 10:09 05/01/23 11:42 Temperature 97.6 F L Temperature Source Temporal Pulse Rate 85 75 Respiratory Rate 16 18 Respiratory Pattern Normal Blood Pressure 126/71 H Blood Pressure Mean 89 Pulse Ox 98 Oxygen Delivery Method Room Air Positive well nourished and well developed; Negative for cachectic, contractures or unkempt General Appearance ED: well developed and NAD; Negative for unkempt, cachectic, contractures, cyanotic, diaphoretic or pallor Nutritional Appearance: Negative for cachectic HEENT Reports dry mucous membranes Negative for trauma or tenderness Mouth ED: Yes dry mucous membranes Mouth: dry mucous membranes Eyes PERRL and EOMs intact bilaterally General Eye ED: Negative for pale conjunctiva or scleral icterus Neck no lymphadenopathy, supple and no JVD General: Negative for tenderness Lymph Lymphatic: Negative for other Chest Wall inspection of chest normal and palpation of chest normal Chest: Negative for other Resp normal respiratory effort and clear to auscultation bilaterally Effort and Inspection: Negative for retractions Auscultation: Negative for rales, rhonchi or wheezes Cardio regular rate, regular rhythm, S1 normal heart sound, S2 normal heart sound and no murmurs GI normal to inspection, nondistended, normoactive bowel sounds, non-tender, non-distended and no masses Inspection: Negative for abdominal distention Palpation: soft; Negative for tender, guarding or rebound tenderness present Back/Spine no CVA tenderness Extremity normal to inspection General Extremety ED: Negative for edema or tenderness General Extremity: Negative for edema Neuro oriented x3 and CN's II-XII intact bilaterally Sensorium / Orientation: alert; Negative for orientation impaired, lethargic or stuporous Motor Exam: strength 5/5 throughout Psych mental status grossly normal Appearance: Negative for unkempt Attitude: No agitated Mood & Affect: Negative for depressed, anxious or tearful Skin no rashes or lesions noted and no wounds General Skin Exam: Negative for jaundice or pallor Lesions: No lesion noted Rashes: No rashes noted Trauma: Negative for abrasion Wounds: Negative for wounds noted MDM MDM MDM Narrative Medical decision making narrative: 62-year-old female concern for possible dehydration and worsening kidney function. She will be given a liter IV fluids, Zofran for nausea and screening labs. Repeat exam at 11:25 AM patient doing well. Sure she has acute on chronic renal failure with hyperkalemia her potassium is 6.3 have not seen her have elevated potassium before in the past compared to her old labs. Her kidney function has been this bad in the past but she normally runs a creatinine around 2.4. She will receive a second liter of IV fluids. Hyperkalemia protocol including calcium gluconate and aerosols. I have the hospitalist on page for admission. Patient and family are aware of the plan. History & Record Review Discussion w/independent historian: Patient and Family Additional record(s) reviewed:: Prior inpatient record, Prior outpatient record, Prior ED visit and Prior labs Lab Data Attestation: I reviewed the patient's lab results. Lab results narrative: CBC shows a white count of 15.6. H&H of 14 and 46. Platelets 277. Electrolytes show a sodium of 129. Potassium is 6.3. Gap of 9. Her BUN and creatinine are 54 and 4.3 which is worse than her baseline of chronic renal insufficiency. Glucose elevated 335. Liver enzymes show an elevated alk phos of 168. Labs: Laboratory Results - last 24 hr 05/01/23 10:43 WBC 15.6 H RBC 5.40 Hgb 14.5 Hct 46.9 MCV 86.9 MCH 26.9 L MCHC 30.9 L RDW Std Deviation 53.3 H RDW Coeff of Jan 17.3 H Plt Count 277 MPV 12.2 H Immature Gran % (Auto) 0.400 Neut % (Auto) 51.7 Lymph % (Auto) 32.2 [place] % (Auto) 6.7 Eos % (Auto) 8.7 H Baso % (Auto) 0.3 Absolute Neuts (auto) 8.0 H Absolute Lymphs (auto) 5.02 H Nucleated RBC % 0 Reactive Lymphocytes 2+ Toxic Granulation 1+ Sodium 129 L Potassium 6.3 H* Chloride 105 Carbon Dioxide 15.0 L Anion Gap 9 BUN 54 H Creatinine 4.34 H Est GFR (MDRD) Af Amer 13 L Est GFR (MDRD) Non-Af 11 L BUN/Creatinine Ratio 12.4 Glucose 335 H Calcium 10.0 Total Bilirubin 1.40 H AST 17 ALT 17 Alkaline Phosphatase 168 H Total Protein 9.0 H Albumin 3.5 Globulin 5.5 H Albumin/Globulin Ratio 0.6 L Rhythm Strip Rhythm Strip: Sinus Rhythm Rate: 74 Ectopy: None EKG Initial EKG: Attestation: I personally reviewed and interpreted this EKG as follows: Interpretation: Sinus Rhythm and No Acute Injury Pattern Comments: Normal sinus rhythm rate of 74. LVH. Inverted T waves with ST depression in leads I V2. No ST elevation. No dysrhythmia. Critical Care Time Critical Care Time: Yes Critical care time (excluding procedures): 30-74 minutes, Including time spent:, Discussing w/Patient &/or Family/Ocean Fre[employer] Manager, Discussing w/Consultants, Arranging Admission or Transfer, Performing Direct Patient Care at Bedside and - (34 minutes.) Discharge Plan Dx/Rx/DC Orders Clinical Impression: Acute on chronic kidney failure, Acute dehydration, Acute hyperkalemia, Hyperglycemia due to diabetes mellitus Disposition Disposition: Acute Care [facility]
[2023-05-01 10:52] LABS: Absolute Lymphocyte Count 5.02 X10^3/uL (0.83-4.51); Basophil# 0.05 X10^3/uL; Basophil% 0.3 % (0-1); Differential Indicated SCAN CRITERIA MET; Eosinophil# 1.36 X10^3/uL; Eosinophils% 8.7 % (0-5); Hematocrit 46.9 % (37-47); Hemoglobin 14.5 g/dL (12.0-15.0); Lymphocyte # 5.02 X10^3/ul (0.83-4.51); Lymphocyte % 32.2 % (19-41); Mean Corp Hgb Conc 30.9 g/dL (32-36); Mean Corpuscular Hgb 26.9 pg (27.0-32.0); Mean Corpuscular Volume 86.9 fL (81-99); Mean Platelet Vol. 12.2 fl (6.2-12.0); Monocyte# 1.05 X10^3/uL; Monocyte% 6.7 % (0-10); NRBC Flagged by Analyzer 0 % (0-5); Neutrophil # 8.04 X10^3/uL (2.7-7.7); Neutrophil % 51.7 % (47-70); POSITIVE DIFFERENTIAL YES; Platelet Count 277 K/mm3 (150-450); RBC Distribution Width CV 17.3 % (11.6-14.6); RBC Distribution Width SD 53.3 fl (35.1-43.9); White Blood Count 15.6 K/mm3 (4.4-11.0)
[2023-05-01] MEDS: 0.9% Normal Saline (1000mL) 1,000 ML 1000 ML IV (10:57)
[2023-05-01] MEDS: Ondansetron 4 MG/2 ML Vial IV (10:58)
--- OUTSIDE RECORDS SUMMARY | 2023-05-01 11:12 | XMS RPT_ITS | CCD ---
Author Name Unknown Address [address] [place] [address] Organization [facility] Care Team Providers Care Title Clerk Automobile Name Role Phone GERBER, DEAN C Unavailable [...] PCP Unavailable Unavailable Oleghe, Efewongbe B Unavailable [phone] Unavailable Unavailable OLEGHE, EFEWONGBE B Primary Care Unavailable EDWIGE JOY Attending Unavailable FRIEND, JACQUELINE Zurita Referring Unavailable Allergies Allergy Classification Reported Allergen(s) Allergy Type Date of Onset Reaction(s) Facility Anticholinergics (1 source) Dicyclomine; Translations: [dicyclomine] Drug Allergy [facility] [place] [address] Work Phone: liraglutide (1 source) liraglutide; Translations: [Victoza SOPN] [facility]ergy [facility] Work Phone: metFORMIN (1 source) metFORMIN; Translations: [metformin] Drug Allergy [facility] [place] [address] Work Phone: Nitroimidazoles (antibiotic) (1 source) metroNIDAZOLE; Translations: [Flagyl] Drug Allergy [place] [address] Work Phone: Penicillins (antibiotic) (1 source) Penicillins; Translations: [Penicillins] Drug Allergy [place] [address] Work Phone: Sulfonamides (antibiotic) (1 source) Sulfonamides (Antibiotic); Translations: [Sulfa Drugs] Drug Allergy [place] [address] Work Phone: Unclassified (1 source) Cinnamon Flavor OIL; Translations: [Cinnamon Flavor OIL] Allergy to drug (finding) [place] [address] Work Phone: (2 sources) cinnamon preparation; Translations: [CINNAMON] Drug Allergy 9 [facility] Repository (2 sources) codeine; Translations: [CODEINE] Drug Allergy 9 [facility] Repository (4 sources) dicyclomine; Translations: [DICYCLOMINE] Drug Allergy 4 [facility] Repository (2 sources) influenza virus vaccine; Translations: [FLU VACC [id number] 65YR UP(PF)] Drug Allergy 6 [facility] Repository (2 sources) liraglutide; Translations: [LIRAGLUTIDE] Drug Allergy 7 [facility] Repository (2 sources) metFORMIN; Translations: [METFORMIN HCL] Drug Allergy 4 [facility] Repository (2 sources) metroNIDAZOLE; Translations: [METRONIDAZOLE HCL] Drug Allergy 4 [facility] Repository (4 sources) Penicillins; Translations: [PENICILLINS] Propensity to adverse reactions to drug (disorder) 9 [facility] Repository (2 sources) sulfaSALAzine; Translations: [SULFASALAZINE] Drug Allergy 9 [facility] Repository (2 sources) Sulfonamides (Antibiotic); Translations: [SULFA (SULFONAMIDE ANTIBIOTICS)] Propensity to adverse reactions to drug (disorder) 9 [facility] Repository (2 sources) INFLUENZA VIRUS VACCINES; Translations: [INFLUENZA VIRUS VACCINES] Propensity to adverse reactions [facility] drug [facility]disorder[facility]) liraglutide Drug Allergy [facility] 120 Work Phone: (2 sources) metFORMIN Drug Allergy [facility] Work Phone: (2 sources) metroNIDAZOLE Drug Allergy [facility] 120 Work Phone: (2 sources) Sulfonamides (Antibiotic) Allergy to drug (finding) [facility] 120 Work Phone: (1 source) Hmg-Coa Reductase Inhibitors (Statins); Translations: [OGKDPHH-TOW-WSK REDUCTASE INHIBITORS] Propensity to adverse reactions to drug (disorder) [address] [facility] Repository (1 source) ranolazine; Translations: [RANOLAZINE] Drug Allergy [address] [facility] Repository Medications Completed/Discontinued Medications Medication Drug [...] [Coronary atherosclerosis of unspecified type of vessel, lovelock or graft] Chronic Coronary atherosclerosis and other [...] / Z87.891(ICD-10) Onset: 10-21-2016 Unclassified (1 source) [facility] (current) use of aspirin / Z79.82(ICD-10) Onset: [...] (Body Mass Index) 30.54 kg/m2 Brennan Duque [facility] 120 Work Phone: 12-20-2019 11:35-0400 Body Temperature 98.2 [degF] Brennan Duque [facility] 120 Work Phone: 12-20-2019 11:35-0400 Body weight 88.45 kg Brennan Duque [facility] [place] 120 Work Phone: 12-20-2019 11:35-0400 BP Diastolic 70 mm[Hg] [facility] 120 Work Phone: 12-20-2019 11:35-0400 BP Systolic 120 mm[Hg] Brennan Duque [facility] 120 Work Phone: 12-20-2019 11:35-0400 BSA (Body Surface Area) 2 m2 Brennan Duque [facility] 120 Work Phone: 12-20-2019 11:35-0400 Height 170.18 cm Brennan Duque [facility] 120 Work Phone: 11-30-2019 11:55-0400 BMI (Body Mass Index) 30.54 kg/m2 Brennan Duque [facility] 120 Work Phone: 11-30-2019 11:55-0400 Body weight 88.45 kg Brennan Duque [facility] 120 Work Phone: 11-30-2019 11:55-0400 BP Diastolic 60 mm[Hg] Brennan Duque [facility] 120 Work Phone: 11-30-2019 11:55-0400 BP Systolic 122 mm[Hg] Brennan Duque [facility] 120 Work Phone: 11-30-2019 11:55-0400 BSA (Body Surface Area) 2 m2 Brennan Duque [facility] 120 Work Phone: 11-30-2019 11:55-0400 Height 170.18 cm Brennan Duque [facility] 120 Work Phone: 11-30-2019 11:55-0400 Pulse (Heart Rate) 66 /min Brennan Duque [facility] 120 Work Phone: 11-30-2019 11:55-0400 Pulse Oximetry 96 % Brennan Duque [facility] 120 Work Phone: Encounters Encounter Date Encounter Type Care Provider Facility Start: 02-18-2022 End: 02-18-2022 ambulatory MALA MADRIGAL Facility:[facility] Start: 10-23-2020 Rx Renewal Mala Zurita [place] Work Phone: [facility] Work Phone: Start: 12-20-2019 Patient encounter procedure Brennan Duque [facility] [facility] 120 Work Phone: Start: 11-30-2019 Patient encounter procedure Brennan Duque [facility] [facility] 120 Work Phone: Start: 07-06-2017 Ambulatory DEAN May GERBER [facility] Start: 10-21-2016 End: 10-21-2016 Ambulatory Huma Ocasio Facility:[facility] Start: 10-08-2016 Ambulatory Mena Brown [facility] Start: 09-03-2016 Ambulatory Alireza Tavares [facility] Procedures Date Procedure Procedure Detail [...] Brennan Duque, Status: Pen, Time: 10:00 AM [facility] Work Phone: Payers Date Payer Category Payer Unknown [id number] Unknown [id number] Unknown Social History Date Type Detail Facility [facility] Work Phone: NEGATED: Highlighted row - - [facility] 120 Work Phone: Medical Equipment Procedure [...] Type Note Facility 02-18-2022 Note HNO ID: [id number] Author: Edwige Joy RD Service: ? Author [...] in the bag) Lunch - meals of [employer]/meal delivery service, meat balls and spaghetti, chicken, [...] sand which with salami, ham, cheese sometimes (cuban, maldivian) Beverages - diet coke drinks all [...] [Metronidazole Hcl], Fluzone High-Dose (Pf) [Flu Vacc [id number] 65yr Up(Pf)], Glucophage [Metformin Hcl], Influenza Virus Vaccines, Penicillins, Ranexa [Ranolazine], Sulfa (Sulfonamide Antibiotics), Victoza [Liraglutide], and Idxxtgl-Ule-Wip Reductase Inhibitors Medications: Current Outpatient Medications Medication [...] BY MOUTH EV (more content not included)... [facility] Summary Purpose Family History No Family [...] DATE CREATED AUTHOR AUTHOR'S ORGANIZ ATION 08/31/2017 [facility] DATE CREATED AUTHOR AUTHOR'S ORGANIZ ATION 09/01/2017 [facility] DATE CREATED AUTHOR AUTHOR'S ORGANIZ ATION 09/01/2017 [facility] DATE CREATED AUTHOR AUTHOR'S ORGANIZ ATION 06/18/2020 [employer] DATE CREATED AUTHOR AUTHOR'S ORGANIZ ATION 02/14/2021 [facility] DATE CREATED AUTHOR AUTHOR'S ORGANIZ ATION 02/25/2022 [facility] FOR RECORDS PERTAINING TO PATIENTS WHO [...] BE BASED ON THE PRIMARY CLINICAL RECORDS. [facility] [facility]. provides no warranty or guarantee of the accuracy or completeness of information in this document.
[2023-05-01 11:13] LABS: ALB/GLOB Ratio 0.6 RATIO (0.9-2.4); AST(SGOT) 17 U/L (15-37); Alanine Aminotransfer ALT/SGPT 17 U/L (13-56); Albumin, Serum 3.5 g/dL (3.2-5.0); Alkaline Phosphatase 168 U/L (45-117); Anion Gap 9 (5-15); BUN 54 mg/dL (7-18); BUN/Creat Ratio 12.4 RATIO (10-20); Chloride 105 mmol/L (98-107); Creatinine, Serum 4.34 mg/dL (0.55-1.02); EST Glomerular Filtration Rate 11 mL/min (>60); Est Glom Filt Rate - Afr Amer 13 mL/min (>60); Globulin 5.5 g/dL (2.2-4.2); Glucose 335 mg/dL (74-106); Potassium 6.3 mmol/L (3.5-5.1); Sodium Level 129 mmol/L (136-145)
[2023-05-01 11:16] LABS: Reactive Lymphocyte 2+; Toxic Granulation 1+
--- NOTE | 2023-05-01 11:22 | EKG12_ITS ---
Test Reason : HIGH POTASSIUM Blood Pressure : / mmHG Vent. Rate : 074 BPM Atrial Rate : 074 BPM P-R Int : 194 ms QRS Dur : 114 ms QT Int : 406 ms P-R-T Axes : 027 -51 116 degrees QTc Int : 450 ms Normal sinus rhythm Left axis deviation Left ventricular hypertrophy with repolarization abnormality ( R in aVL , Parminder product ) Abnormal ECG Confirmed by CHLOÉ DOMINGUEZ, AL ([id number]), graphics editor ISABELLA BUTLER ([id number]) on 05/03/2023 9:47:02 AM Referred By: Confirmed By:AL LUEVANO MD
--- NOTE | 2023-05-01 11:33 | PCM.HP.STD ---
HPI - General General Date of Admission: 05/01/23 Date of Service: 05/01/23 Chief Complaint: Increased ileostomy output, diarrhea, dehydrated. Nausea for 2 days. Very weak HPI Narrative ASHLEY MÉNDEZ, is a 62 F with known history of ulcerative colitis status post total colectomy, short-bowel syndrome with end ileostomy came to ED very weak dehydrated for about 2 days. She said her ileostomy is high output liquid mainly bilious for last 2 days. She also has nausea dry heaving and 3 times vomiting clear. She feels very weak and lethargic. Denies any change in the diet, food poisoning, recent antibiotic or fever. No recent URIs or flulike symptoms. Patient also complained of intermittent abdominal cramps, nonspecific generalized without aggravating or relieving factor. In ED, she was found to have acute kidney injury with hyperkalemia, potassium 6.1. Patient is stated her urine is dark yellow and is decreased in the amount for last 2 days. Denies burning micturition. Vitals labs and EKG reviewed and discussed in assessment and plan. [facility] Medical History Acute kidney injury Anxiety Anxiety and depression Arthritis Avascular necrosis of bone of left hip BiPAP (biphasic positive airway pressure) dependence BMI 31.0-31.9,adult CAD (coronary artery disease) Cardiology follow-up encounter Cellulitis, abdominal wall Chronic back pain Chronic diastolic (congestive) heart failure Chronic narcotic use Chronic pain Chronic respiratory failure Chronic respiratory failure with hypoxia, on home O2 therapy CKD (chronic kidney disease), stage IV Congestive heart failure (CHF) COPD (chronic obstructive pulmonary disease) COPD (chronic obstructive pulmonary disease) Depression Depression with anxiety Diabetic gastroparesis DM2 (diabetes mellitus, type 2) Elevated anti-tissue transglutaminase (tTG) IgA level Fatty liver FCHL (familial combined hyperlipidemia) Former smoker Gastric reflux Gastroparesis High output ileostomy History of CAD (coronary artery disease) History of COVID-19 Hx of diabetic gastroparesis Hyperlipidemia Hypertension Ileostomy present Insulin dependent diabetes mellitus Left shoulder pain Liver mass Loss of hearing Malaise and fatigue Menieres disease MGUS (monoclonal gammopathy of unknown significance) Migraine headache Myoclonic jerking Non-alcoholic fatty liver disease Nonalcoholic steatohepatitis Obesity Obstructive sleep apnea Psoriasis Rheumatoid arthritis Secondary pulmonary arterial hypertension Short bowel syndrome Sleep apnea Smoking greater than 20 pack years Tremor Type 2 diabetes mellitus with diabetic polyneuropathy Ulcerative colitis Vitamin B12 deficiency Vitamin D deficiency Walker as ambulation aid Wears glasses Home Medications aspirin 81 mg tablet,delayed release 81 mg PO DAILY heart health 04/08/21 [History Last Taken 04/30/23] duloxetine 30 mg capsule,delayed release 90 mg PO DAILY depression 10/06/21 [History Last Taken 04/30/23] Wheel Chair 11/15/21 [History Last Taken Unknown] blood sugar diagnostic (True Metrix Glucose Test Strip) 11/15/21 [History Last Taken Unknown] blood-glucose meter,continuous (Dexcom G6 Banana Handler) 11/15/21 [History Last Taken Unknown] pen needle, diabetic 32 gauge x 5/32 (BD Ultra-Fine Key Pen Needle) 11/15/21 [History Last Taken Unknown] nitroglycerin 0.4 mg sublingual tablet 0.4 mg sublingual Q5-15M PRN chest pain #25 tabs 11/20/21 [Rx Last Taken Unknown] ostomy supplies #1 ea 02/13/22 [Rx Last Taken Unknown] atorvastatin 80 mg tablet 80 mg PO QHS CHOLESTEROL LOWERING #90 tabs 08/04/22 [Rx Last Taken 04/30/23] blood-glucose transmitter (Dexcom G6 Transmitter device) #1 ea 08/07/22 [Rx Last Taken Unknown] metoprolol tartrate 50 mg tablet 50 mg PO .COMPLEX blood pressure 09/02/22 [History Last Taken 04/30/23] Handicap Placard #1 ea 09/16/22 [Rx Last Taken Unknown] isosorbide dinitrate 30 mg tablet 30 mg PO BID heart #60 tabs 12/11/22 [Rx Last Taken 04/30/23] blood-glucose sensor (Dexcom G6 Sensor device) #9 ea 12/14/22 [Rx Last Taken Unknown] insulin pump cart,automated,BT (Omnipod 5 G6 Pods (Gen 5) subcutaneous cartridge) #45 ea 01/13/23 [Rx Last Taken Unknown] Juanita Cohesive Seal 2 diameter #15 ea 01/18/23 [Rx Last Taken Unknown] Esenta Sting Free Adhesive Remover Wipe - #15 ea 01/18/23 [Rx Last Taken Unknown] Esenta Sting Free Skin Barrier [place], 50 mL - #15 ea 01/18/23 [Rx Last Taken Unknown] Esteem + Convex One-Piece Drainable Pre-Cut Pouch w/ visiClose, Durahesive, 12 panel [place], 1 03/15 #15 ea 01/18/23 [Rx Last Taken Unknown] clopidogrel 75 mg tablet 75 mg PO DAILY heart health #90 tabs 02/04/23 [Rx Last Taken 04/30/23] blood sugar diagnostic (True Metrix Glucose Test Strip) #100 ea 02/08/23 [Rx Last Taken Unknown] buprenorphine 15 mcg/hour weekly transdermal patch 1 patch transdermal Q7D pain 02/10/23 [History Last Taken 05/01/23] melatonin 5 mg tablet 5 mg PO HS sleep 02/10/23 [History Last Taken 04/30/23] cyclobenzaprine 10 mg tablet 10 mg PO TID PRN muscle spasm #30 tabs 02/24/23 [Rx Last Taken 04/30/23] benzonatate 200 mg capsule 200 mg PO BID PRN cough #30 caps 03/10/23 [Rx Last Taken Unknown] trazodone 50 mg tablet 50 mg PO QHS sleep 03/18/23 [History Last Taken 04/30/23] cholestyramine (with sugar) 4 gram powder for susp in a packet 4 g PO BIDAC stool #60 ea 03/31/23 [Rx Last Taken 04/30/23] dicyclomine 10 mg capsule 20 mg (2 x 10 mg) PO BID PRN abdominal pain #30 caps 03/31/23 [Rx Last Taken 04/30/23] diphenoxylate-atropine 2.5 mg-0.025 mg tablet (Lomotil) 1 tab PO TID diarrhea #90 tabs 03/31/23 [Rx Last Taken 05/01/23] dapagliflozin propanediol 10 mg tablet (Farxiga) 10 mg PO DAILY diabetes #90 tabs 04/03/23 [Rx Last Taken 04/30/23] insulin lispro 200 unit/mL (3 mL) subcutaneous pen (Humalog KwikPen U-200 Insulin) 160 unit (0.8 mL) subcut DAILY diabetes #72 mL 04/21/23 [Rx Last Taken Unknown] metoprolol tartrate 25 mg tablet 25 mg PO .COMPLEX bp #180 tabs 04/29/23 [Rx Last Taken 04/30/23] pantoprazole 40 mg tablet,delayed release (Protonix) 40 mg PO BID GERD #60 tabs 04/29/23 [Rx Last Taken 04/30/23] pregabalin 75 mg capsule 75 mg PO BID #56 caps 04/29/23 [Rx Last Taken 04/30/23] duloxetine 60 mg capsule,delayed release 60 mg PO DAILY 05/01/23 [History Last Taken 04/30/23] lamotrigine 200 mg tablet 200 mg PO DAILY 05/01/23 [History Last Taken 04/30/23] Allergy/AdvReac Type Severity Reaction Status Date / Time ciprofloxacin Allergy Intermediate Swelling Verified 05/01/23 10:08 cinnamon [Cinnamon] Allergy Anaphylaxis Verified 05/01/23 10:08 Influenza Virus Vaccines Allergy Shortness Verified 05/01/23 10:08 of breath liraglutide [From Victoza] Allergy Anaphylaxis Verified 05/01/23 10:08 metformin [From Glucophage] Allergy NEEDS Verified 05/01/23 10:08 FOLLOW-UP metronidazole [From Flagyl] Allergy Hives Verified 05/01/23 10:08 Metronidazole HCl Allergy Hives Verified 05/01/23 10:08 [From Flagyl] Penicillins Allergy Hives Verified 05/01/23 10:08 Sulfa (Sulfonamide Allergy Hives Verified 05/01/23 10:08 Antibiotics) aripiprazole [From Abilify] AdvReac hallucinati Verified 05/01/23 10:08 ons codeine AdvReac Stops Verified 05/01/23 10:08 Ileostomy metformin HCl AdvReac Nausea Verified 05/01/23 10:08 [From Glucophage] ranolazine AdvReac Nausea/Vom/ Verified 05/01/23 10:08 Diarrhea Abohiam-QAR-MzK Reductase AdvReac Nausea/joints Verified 05/01/23 10:08 Inhibitor ache [Akccqah-Hia-Zcd Reductase Inhibitor] Family History Mother CVA (cerebral vascular accident) Diabetes Brother Heart disease of CAD at 65 Myocardial infarction Pancreatitis Father Cancer lymphomia Lymphoma Grandmother Myocardial infarction of [place] in her 70s Sister COPD (chronic obstructive pulmonary disease) Surgical History H/O colectomy H/O coronary artery bypass surgery (05/18/12) H/O sinus surgery H/O total hysterectomy history closed fissure History of appendectomy History of History of cardiac catheterization History of cholecystectomy History of coronary artery stent placement (01/12/18) History of coronary artery stent placement ileostomy Ileostomy status left thumb surgery Status post total hip replacement, left Social History household members: none Smoking Status: Former smoker quit date: 03/08/12 how long ago did patient quit smoking: quit in 2012; 0.5-1ppd x 30yrs alcohol intake: never substance use type: does not use diet: diabetic caffeine: No eating out: 1-3 times/week what type of physical activity do you participate in: none seatbelt use: always do you feel safe at home: Yes ROS ROS Narrative Constitutional: Reports fatigue and weakness. No fever. HEENT: Reports systems reviewed and no addt'l complaints, except as documented Respiratory/Chest: No acute shortness of breath or respiratory distress or wheezing. CVS: No chest pressure or tightness or chest pain Gastrointestinal: Denies coffee ground emesis, hematemesis or blood in the ileostomy tube. Rest as described in HPI Genitourinary: Decreased urine output/oliguria for about 2 days. Denies burning urination or new urinary tract symptoms Musculoskeletal: Status post left hip replacement. Denies acute joint pain or limited range of motion. No acute injury Neurologic: Denies seizure-like symptoms. skin: No ulcer. No rash Endocrinology: Reports systems reviewed and no addt'l complaints, except as documented Hematologic/Lymphatic: Reports systems reviewed and no addt'l complaints, except as documented Rest 14 ROS are negative except as mentioned in HPI Vital Signs Vital Signs Vital Signs: 05/01/23 10:09 Temperature 97.6 F L Temperature Source Temporal Pulse Rate 85 Respiratory Rate 16 Blood Pressure 126/71 H Blood Pressure Mean 89 Pulse Ox 98 Oxygen Delivery Method Room Air Physical Exam Narrative General: Fatigue, mild lethargic. Awake oriented x 3. HEENT: Atraumatic, PERRLA, EOMI, Normocephalic Oral: Oral mucosa dry. No Gingival or Mucosal Lesions/ Ulcerations Neck: Supple, No JVD, Negative Carotid Bruits Chest wall/Lungs: Air entry diminished in bilateral lung bases. No crepitation/rhonchi Cardiovascular: Regular rate, Regular Rhythm, Normal S1, Normal S2, No M/G/R Abdomen: Bowel Sounds Present, Soft, Non Tender, nondistended. Left-sided ileostomy with liquid bilious fluid full of bag. : Oliguria. No renal angle tenderness. No suprapubic tenderness. Extremities: No edema, Capillary Refill Less than 3 Seconds Skin: No rashes, No breakdown Musculoskeletal: No Tenderness to Palpation of Joints or Extremities ROM restricted at left hip joint. Neurological: Cranial nerves II-XII grossly intact, DTR 2+/4. No acute focal neurological deficit. Psych/Mental Status: Flat affect. Results Lab / Micro Data 05/01/23 10:43 05/01/23 13:00 Labs: Laboratory Results - last 24 hr 05/01/23 10:43: WBC 15.6 H, RBC 5.40, Hgb 14.5, Hct 46.9, MCV 86.9, MCH 26.9 L, MCHC 30.9 L, RDW Std Deviation 53.3 H, RDW Coeff of Jan 17.3 H, Plt Count 277, MPV 12.2 H, Immature Gran % (Auto) 0.400, Neut % (Auto) 51.7, Lymph % (Auto) 32.2, [place] % (Auto) 6.7, Eos % (Auto) 8.7 H, Baso % (Auto) 0.3, Absolute Neuts (auto) 8.0 H, Absolute Lymphs (auto) 5.02 H, Nucleated RBC % 0, Reactive Lymphocytes 2+, Toxic Granulation 1+, Sodium 129 L, Potassium 6.3 H*, Chloride 105, Carbon Dioxide 15.0 L, Anion Gap 9, BUN 54 H, Creatinine 4.34 H, Est GFR (MDRD) Af Amer 13 L, Est GFR (MDRD) Non-Af 11 L, BUN/Creatinine Ratio 12.4, Glucose 335 H, Calcium 10.0, Total Bilirubin 1.40 H, AST 17, ALT 17, Alkaline Phosphatase 168 H, Total Protein 9.0 H, Albumin 3.5, Globulin 5.5 H, Albumin/Globulin Ratio 0.6 L Assessment & Plan Assessment/Plan (1) Acute hyperkalemia: (2) Acute on chronic kidney failure: PLAN: Plan This is 62-year-old female is being admitted for RALPH with hyperkalemia 1. RALPH on CKD stage IIIb with hyperkalemia mainly prerenal/decreased renal plasma flow: Patient is being admitted in PCU. BUNs/creatinine 50/4.3, BUN/creatinine ratio 12. Serum potassium 6.3 and patient was given hyperkalemia cocktail and IV fluid normal saline bolus in ED. Repeat potassium 5.9 therefore we will repeat hyperkalemia cocktail. Patient had 2 L of normal saline bolus. Bicarb 15, anion gap 9 therefore IV fluids changed to bicarb infusion drip at 150 mill per hour. Will repeat BMP in 4 hours. Performance Improvement Analyst consulted. Urine electrolytes ordered. UA is ordered. 2. Hypotonic hypovolemic hyponatremia: IV fluid normal saline. Serum sodium is 129. Monitor serum sodium. Patient getting normal saline. Rest as mentioned above. 3. Diabetes mellitus type 2: Patient has insulin pump. Instruction given to nursing staff to continue the insulin pump. 4. Gastroparesis: Patient during previous admission Reglan was held but currently not on Reglan on her home medications. 5. GERD ? On PPI 6. Coronary artery disease -Has history of CABG and subsequent stent placement. Patient is on guideline directed medical therapy 7. MGUS ? Patient is followed by oncology as outpatient 8. History of ulcerative colitis ? Status post ileostomy with resultant short gut syndrome. Patient on Lomotil and cholestyramine. Patient also on dicyclomine. 9. Essential hypertension ? Patient antihypertensives held given her relatively low blood pressure 10. Chronic pain syndrome ? Patient is on buprenorphine 11. Depression ? Patient is on duloxetine 12. Psoriasis ? Patient had previously been treated with Humira taking off during the COVID pandemic 13. Hypomagnesemia ? Secondary to patient high output ileostomy corrected per protocol repeat magnesium and phosphorus ordered for a.m. 14. DVT prophylaxis - On heparin 530 unit subcutaneous twice daily adjusted to creatinine clearance. Laboratory Results 05/01/23 10:43: WBC 15.6 H, RBC 5.40, Hgb 14.5, Hct 46.9, MCV 86.9, MCH 26.9 L, MCHC 30.9 L, RDW Std Deviation 53.3 H, RDW Coeff of Jan 17.3 H, Plt Count 277, MPV 12.2 H, Immature Gran % (Auto) 0.400, Neut % (Auto) 51.7, Lymph % (Auto) 32.2, [place] % (Auto) 6.7, Eos % (Auto) 8.7 H, Baso % (Auto) 0.3, Absolute Neuts (auto) 8.0 H, Absolute Lymphs (auto) 5.02 H, Nucleated RBC % 0, Reactive Lymphocytes 2+, Toxic Granulation 1+, Sodium 129 L, Potassium 6.3 H*, Chloride 105, Carbon Dioxide 15.0 L, Anion Gap 9, BUN 54 H, Creatinine 4.34 H, Est GFR (MDRD) Af Amer 13 L, Est GFR (MDRD) Non-Af 11 L, BUN/Creatinine Ratio 12.4, Glucose 335 H, Calcium 10.0, Total Bilirubin 1.40 H, AST 17, ALT 17, Alkaline Phosphatase 168 H, Total Protein 9.0 H, Albumin 3.5, Globulin 5.5 H, Albumin/Globulin Ratio 0.6 L 05/01/23 13:00: Potassium 5.9 H Living will/advanced directive/end of life care: Patient does have living will or advanced directive. After discussion of benefits/risks procedures involved with full code, DNR CC arrest and DNR CC, the patient opted for full code. Patient does want artificial life support including intubation, tube feed, ventilator and/chest compression, central venous catheter, vasopressor and DC shock if needed Total time spent in [id number] encounter in discussion of advanced directive 17 minutes. Charges/Coding Visit Charges Inpatient E&M: 59095 Init Hosp L3 Procedures Hospitalists Procedures: 08774 Advncd Care Plan 30 Min
[2023-05-01] MEDS: Albuterol 2.5 MG/3 ML VIAL.NEB. 10 MG INHALATION (11:41)
[2023-05-01] MEDS: 0.9% Normal Saline (1000mL) 1,000 ML 999 ML IV (11:45)
[2023-05-01] MEDS: Calcium Gluconate IV 3 GM in Syringe 1 EACH IV (11:53)
[2023-05-01] MEDS: Insulin Lispro 10 UNIT in Syringe 0 ML 6 UNIT IV ×2 (11:53→15:22)
--- OUTSIDE RECORDS SUMMARY | 2023-05-01 12:02 | XMS RPT_ITS | CCD ---
Author Name Unknown Address [address] [place] [address] Organization [facility] Care Team Providers Care Electric Refrigerator Servicer Name Role Phone GERBER, DEAN C Unavailable [...] PCP Unavailable Unavailable Oleghe, Efewongbe B Unavailable [phone] Unavailable Unavailable OLEGHE, EFEWONGBE B Primary Care Unavailable EDWIGE JOY Attending Unavailable FRIEND, JACQUELINE Zurita Referring Unavailable Allergies Allergy Classification Reported Allergen(s) Allergy Type Date of Onset Reaction(s) Facility Anticholinergics (1 source) Dicyclomine; Translations: [dicyclomine] Drug Allergy [facility] [place] [address] Work Phone: liraglutide (1 source) liraglutide; Translations: [Victoza SOPN] Drug Allergy [facility] Work Phone: metFORMIN (1 source) metFORMIN; Translations: [metformin] Drug Allergy [facility] [place] [address] Work Phone: Nitroimidazoles (antibiotic) (1 source) metroNIDAZOLE; Translations: [Flagyl] Drug Allergy [place] [address] Work Phone: Penicillins (antibiotic) (1 source) Penicillins; Translations: [Penicillins] Drug Allergy [place] [address] Work Phone: Sulfonamides (antibiotic) (1 source) Sulfonamides (Antibiotic); Translations: [Sulfa Drugs] Drug Allergy [place] [address] Work Phone: Unclassified (1 source) Cinnamon Flavor OIL; Translations: [Cinnamon Flavor OIL] Allergy to drug (finding) [place] [address] Work Phone: (2 sources) cinnamon preparation; Translations: [CINNAMON] Drug Allergy 9 [facility] Repository (2 sources) codeine; Translations: [CODEINE] Drug Allergy 9 [facility] Repository (4 sources) dicyclomine; Translations: [DICYCLOMINE] Drug Allergy 4 [facility] Repository (2 sources) influenza virus vaccine; Translations: [FLU VACC [id number] 65YR UP(PF)] Drug Allergy 6 [facility] Repository (2 sources) liraglutide; Translations: [LIRAGLUTIDE] Drug Allergy 7 [facility] Repository (2 sources) metFORMIN; Translations: [METFORMIN HCL] Drug Allergy 4 [facility] Repository (2 sources) metroNIDAZOLE; Translations: [METRONIDAZOLE HCL] Drug Allergy 4 [facility] Repository (4 sources) Penicillins; Translations: [PENICILLINS] Propensity to adverse reactions to drug (disorder) 9 [facility] Repository (2 sources) sulfaSALAzine; Translations: [SULFASALAZINE] Drug Allergy 9 [facility] Repository (2 sources) Sulfonamides (Antibiotic); Translations: [SULFA (SULFONAMIDE ANTIBIOTICS)] Propensity to adverse reactions to drug (disorder) 9 [facility] Repository (2 sources) INFLUENZA VIRUS VACCINES; Translations: [INFLUENZA VIRUS VACCINES] Propensity to adverse reactions to drug (disorder) [facility] ([facility]) liraglutide Drug Allergy [facility] 120 Work Phone: (2 sources) metFORMIN Drug Allergy [facility] Work Phone: (2 sources) metroNIDAZOLE Drug Allergy [facility] 120 Work Phone: (2 sources) Sulfonamides (Antibiotic) Allergy to drug (finding) [facility] 120 Work Phone: (1 source) Hmg-Coa Reductase Inhibitors (Statins); Translations: [[id number] REDUCTASE INHIBITORS] Propensity to adverse reactions to drug (disorder) 4 [facility] Repository (1 source) ranolazine; Translations: [RANOLAZINE] Drug Allergy 9 [facility] Repository Medications Completed/Discontinued Medications Medication Drug [...] [Coronary atherosclerosis of unspecified type of vessel, [place] or graft] Chronic Coronary atherosclerosis and other [...] / Z87.891(ICD-10) Onset: 10-21-2016 Unclassified (1 source) snf (current) use of aspirin / Z79.82(ICD-10) Onset: [...] (Body Mass Index) 30.54 kg/m2 Brennan Duque [facility] 120 Work Phone: 12-20-2019 11:35-0400 Body Temperature 98.2 [degF] Brennan Duque [facility] 120 Work Phone: 12-20-2019 11:35-0400 Body weight 88.45 kg Brennan Duque [facility] [place] 120 Work Phone: 12-20-2019 11:35-0400 BP Diastolic 70 mm[Hg] [facility] 120 Work Phone: 12-20-2019 11:35-0400 BP Systolic 120 mm[Hg] Brennan Duque [facility] 120 Work Phone: 12-20-2019 11:35-0400 BSA (Body Surface Area) 2 m2 Brennan Duque [facility] 120 Work Phone: 12-20-2019 11:35-0400 Height 170.18 cm Brennan Dquue [facility] 120 Work Phone: 11-30-2019 11:55-0400 BMI (Body Mass Index) 30.54 kg/m2 Brennan Duque [facility] 120 Work Phone: 11-30-2019 11:55-0400 Body weight 88.45 kg Brennan Duque [facility] 120 Work Phone: 11-30-2019 11:55-0400 BP Diastolic 60 mm[Hg] Brennan Duque [facility] 120 Work Phone: 11-30-2019 11:55-0400 BP Systolic 122 mm[Hg] Brennan Duque [facility] 120 Work Phone: 11-30-2019 11:55-0400 BSA (Body Surface Area) 2 m2 Brennan Duque [facility] 120 Work Phone: 11-30-2019 11:55-0400 Height 170.18 cm Brennan Duque [facility] 120 Work Phone: 11-30-2019 11:55-0400 Pulse (Heart Rate) 66 /min Brennan Duque [facility] 120 Work Phone: 11-30-2019 11:55-0400 Pulse Oximetry 96 % Brennan Duque [facility] 120 Work Phone: Encounters Encounter Date Encounter Type Care Provider Facility Start: 02-18-2022 End: 02-18-2022 ambulatory MALA MADRIGAL Facility:[facility] Start: 10-23-2020 Rx Renewal Mala Zurita Ol eghe Work Phone: [facility] Work Phone: Start: 12-20-2019 Patient encounter procedure Brennan Duque [facility] [facility] 120 Work Phone: Start: 11-30-2019 Patient encounter procedure Brennan Duque [facility] [facility] 120 Work Phone: Start: 07-06-2017 Ambulatory DEAN aMy GERBER [facility] Start: 10-21-2016 End: 10-21-2016 Ambulatory Huma Ocasio Facility:[facility] Start: 10-08-2016 Ambulatory Mena Brown Fac ility:[facility] Start: 09-03-2016 Ambulatory Alireza Tavares [facility] Procedures Date Procedure Procedure Detail [...] Brennan Duque, Status: Pen, Time: 10:00 AM [facility] Work Phone: Payers Date Payer Category Payer Unknown [id number] Unknown [id number] Unknown Social History Date Type Detail Facility Former smoker [facility] Work Phone: NEGATED: Highlighted row - - [facility] 120 Work Phone: Medical Equipment Procedure Code [...] Type Note Facility 02-18-2022 Note HNO ID: [id number] Author: Edwige Joy RD Service: ? Author [...] in the bag) Lunch - meals of [employer]/meal delivery service, meat balls and spaghetti, chicken, [...] sand which with salami, ham, cheese sometimes (macanese, australian) Beverages - diet coke drinks all day [...] [Metronidazole Hcl], Fluzone High-Dose (Pf) [Flu Vacc [id number] 65yr Up(Pf)], Glucophage [Metformin Hcl], Influenza Virus Vaccines, Penicillins, Ranexa [Ranolazine], Sulfa (Sulfonamide Antibiotics), Victoza [Liraglutide], and Arwvqbf-Qod-Rzq Reductase Inhibitors Medications: Current Outpatient Medications Medication [...] BY MOUTH EV (more content not included)... [facility] Summary Purpose Family History No Family [...] DATE CREATED AUTHOR AUTHOR'S ORGANIZ ATION 08/31/2017 [facility] DATE CREATED AUTHOR AUTHOR'S ORGANIZ ATION 09/01/2017 [facility] DATE CREATED AUTHOR AUTHOR'S ORGANIZ ATION 09/01/2017 [facility] DATE CREATED AUTHOR AUTHOR'S ORGANIZ ATION 06/18/2020 [employer] DATE CREATED AUTHOR AUTHOR'S ORGANIZ ATION 02/14/2021 [facility] DATE CREATED AUTHOR AUTHOR'S ORGANIZ ATION 02/25/2022 [facility] FOR RECORDS PERTAINING TO PATIENTS WHO [...] BE BASED ON THE PRIMARY CLINICAL RECORDS. [facility] [employer] [facility]. provides no warranty or guarantee of the accuracy or completeness of information in this document.
[2023-05-01 13:22] LABS: Potassium 5.9 mmol/L (3.5-5.1)
[2023-05-01] MEDS: 0.9% Normal Saline (1000mL) 1,000 ML 125 ML IV ×2 (13:37→23:04)
[2023-05-01 15:09] LABS: Mucous, Urine 0 SEEN /hpf (<or=2+)
[2023-05-01 15:17] LABS: Color, Urine Yellow (Yellow); Glucose, Dipstick Normal (Normal); Ketone-Dipstick 15 mg/dl (Negative); Leukocyte Esterase-Dipstick 100 /ul (Negative); Nitrite-Dipstick Negative (Negative); Occult Blood-Urine 25 /ul (Negative); Protein-Dipstick 100 mg/dl (Negative); Specific Gravity, Urine 1.025 (1.002-1.030); Urine Clarity Sl. Cloudy (Clear); Urine Urobilinogen 1 mg/dl (Normal)
[2023-05-01 15:19] LABS: Urine Bilirubin Dipstick 3 mg/dL (Negative)
[2023-05-01 15:22] LABS: Bacteria 2+ /hpf (None Seen); Squamous Epithelial Cells - UA 10-25 SEEN /hpf (5-10)
[2023-05-01] MEDS: Dextrose 50%-Water 25 GM/50 ML DISP.SYRIN IV (15:22)
[2023-05-01] MEDS: Calcium Gluconate 1 GM/10 ML Vial IVP (15:22)
[2023-05-01 15:23] LABS: Red Blood Cells-Urine 0-5 SEEN /hpf (0-5); Transitional Epithelial - Ur 0-5 SEEN /hpf (0-5); White Blood Cells 5-10 SEEN /hpf (0-5)
[2023-05-01] MEDS: Dicyclomine 10 MG Capsule 20 MG PO ×2 (15:23→21:50)
[2023-05-01] MEDS: Sodium Bicarbonate 150 MEQ in Dextrose 5%-Water (1000mL Bag) 1,000 ML IV (15:35)
[2023-05-01 15:36] LABS: Protein, Urine (Random) 214.3 mg/dL (<11.9); Protein:Creat Ratio 806 mg/g CRE (0-200); Urine Chloride < 10 mmol/L (Not Establ.); Urine Sodium 5 mmol/L (Not Establ.)
--- NOTE | 2023-05-01 15:38 | EKG12_ITS ---
Test Reason : Blood Pressure : / mmHG Vent. Rate : 080 BPM Atrial Rate : 080 BPM P-R Int : 192 ms QRS Dur : 100 ms QT Int : 358 ms P-R-T Axes : 028 -34 153 degrees QTc Int : 412 ms Normal sinus rhythm Left axis deviation Left ventricular hypertrophy with repolarization abnormality ( R in aVL , [place] product ) Abnormal ECG When compared with ECG of 01-MAY-2023 11:32, MANUAL COMPARISON REQUIRED, DATA IS UNCONFIRMED Confirmed by CHLOÉ DOMINGUEZ, AL ([id number]), photography editor ISABELLA BUTLER ([id number]) on 05/03/2023 1:04:36 PM Referred By: MARGARITO Confirmed By:AL LUEVANO MD
[2023-05-01 15:46] LABS: Osmolality, Urine 362 mOsm/KG
[2023-05-01] MEDS: Cholestyramine/Sucrose 4 GM/PACKET PO (17:16)
[2023-05-01 17:46] LABS: Bedside Glucose 174 mg/dL (74-106)
[2023-05-01 18:54] LABS: Anion Gap 6 (5-15); BUN 55 mg/dL (7-18); BUN/Creat Ratio 13.7 RATIO (10-20); Calcium,Total 10.1 mg/dL (8.5-10.1); Chloride 111 mmol/L (98-107); Creatinine, Serum 4.01 mg/dL (0.55-1.02); EST Glomerular Filtration Rate 12 mL/min (>60); Est Glom Filt Rate - Afr Amer 14 mL/min (>60); Estimated Creatinine Clearance 16.12 ml/min; Glucose 223 mg/dL (74-106); Potassium 5.1 mmol/L (3.5-5.1); Sodium Level 136 mmol/L (136-145)
[2023-05-01 19:10] LABS: Osmolality, Serum 307 mOsm/KG (280-301)
--- NOTE | 2023-05-01 19:16 | PCM.CONS.R ---
Assessment & Plan Assessment/Plan (1) Acute kidney injury: (2) Acute hyperkalemia: (3) Acute metabolic acidosis: PLAN: Plan Impression/Plan: The patient is a 62-year-old woman with past history of ulcerative colitis status post total colectomy and end ileostomy complicated by short-bowel syndrome, type 2 diabetes mellitus, hypertension, hepatic steatosis, GERD, and depression. The patient presents on 05/01/2023 with recurrent high ostomy output. Nephrology is following for RALPH on CKD. Acute kidney injury on chronic kidney disease stage G4. Baseline serum creatinine appears to be around 2.30 mg/dL. The patient presented with serum creatinine of 4.34 mg/dL on 05/01/2023. RALPH is secondary to decreased EBV from GI fluid loss. Agree with volume expansion. The patient was initially given IV sodium bicarbonate infusion with improvement in bicarbonate level and potassium level. She is currently on normal saline. I agree with continued efforts to expand volume. The patient still appears to be volume down. Continue keep MAP above 65 mmHg. There is no need for kidney replacement therapy. Recheck renal function, volume status, acid-base status and electrolytes again tomorrow. Hyperkalemia. The patient presented with potassium level of 6.3 mmol/L on 05/01/2023. Hyperkalemia is likely due to combination of RALPH on CKD along with acute metabolic acidosis. The patient was treated with IV sodium bicarbonate earlier. Potassium has improved. Continue current effort to volume expand patient to improve renal function which will help the kidney excrete excess potassium. Recheck potassium level tomorrow. Acute metabolic acidosis. Bicarbonate level was 15 mmol/L on presentation. Serum bicarbonate level was 27 mmol/L on 04/21/2023. She was given IV sodium bicarb and earlier today and is currently on IV normal saline. Will continue to monitor serum bicarbonate level as the patient is being volume expanded. If serum bicarbonate level continues to be below 20 mmol/L tomorrow, we may need to restart sodium bicarbonate infusion particularly if hyperkalemia recurs. HPI Consult Data Date of Consult: 05/01/23 HPI Narrative Reason for Consultation: Acute kidney injury with hyperkalemia. HPI Narrative: The patient is a 62-year-old woman with past history of ulcerative colitis status post total colectomy and end ileostomy complicated by short-bowel syndrome, type 2 diabetes mellitus, hypertension, hepatic steatosis, GERD, and depression. The patient was recently admitted to the hospital between 04/11/2023 until 04/15/2023 with volume depletion due to high ostomy output. During this admission, the patient was also seen by our service for RALPH which was secondary to volume depletion. Serum creatinine peaked at 4.36 mg/dL on 04/12/2023 and improved to 2.23 mg/dL prior to discharge on 04/15/2023. Serum creatinine remained stable at 2.29 mg/dL on 04/21/2023 as outpatient. The patient presents to hospital on 05/01/2023 with recurrent increased ostomy output. The patient is also been nauseated for 2 days prior to admission with vomiting. She complains of fatigue, intermittent abdominal cramping, and myalgia. Nephrology is asked see the patient because of RALPH on CKD. Baseline serum creatinine appears to be around 2.30 mg/dL. The patient presented to the hospital with serum creatinine of 4.34 mg/dL on 05/30/2023. She also had hyperkalemia with potassium level of 6.3 mmol/L. The patient is acidotic with serum bicarbonate level of 15 mmol/L. The patient feels a bit better today. She is being volume expanded with IV fluid. She denies current nausea and was able to tolerate dinner today. She still has high ostomy output. The patient was not on RAAS esha or MRA prior to admission. [facility], [facility] Medical History (Updated 05/01/23 @ 19:[address] Eloy Guan MD) Acute kidney injury Anxiety Anxiety and depression Arthritis Avascular necrosis of bone of left hip BiPAP (biphasic positive airway pressure) dependence BMI 31.0-31.9,adult CAD (coronary artery disease) Cardiology follow-up encounter Cellulitis, abdominal wall Chronic back pain Chronic diastolic (congestive) heart failure Chronic narcotic use Chronic pain Chronic respiratory failure Chronic respiratory failure with hypoxia, on home O2 therapy CKD (chronic kidney disease), stage IV Congestive heart failure (CHF) COPD (chronic obstructive pulmonary disease) COPD (chronic obstructive pulmonary disease) Depression Depression with anxiety Diabetic gastroparesis DM2 (diabetes mellitus, type 2) Elevated anti-tissue transglutaminase (tTG) IgA level Fatty liver FCHL (familial combined hyperlipidemia) Former smoker Gastric reflux Gastroparesis High output ileostomy History of CAD (coronary artery disease) History of COVID-19 Hx of diabetic gastroparesis Hyperlipidemia Hypertension Ileostomy present Insulin dependent diabetes mellitus Left shoulder pain Liver mass Loss of hearing Malaise and fatigue Menieres disease MGUS (monoclonal gammopathy of unknown significance) Migraine headache Myoclonic jerking Non-alcoholic fatty liver disease Nonalcoholic steatohepatitis Obesity Obstructive sleep apnea Psoriasis Rheumatoid arthritis Secondary pulmonary arterial hypertension Short bowel syndrome Sleep apnea Smoking greater than 20 pack years Tremor Type 2 diabetes mellitus with diabetic polyneuropathy Ulcerative colitis Vitamin B12 deficiency Vitamin D deficiency Walker as ambulation aid Wears glasses Home Medications aspirin 81 mg tablet,delayed release 81 mg PO DAILY heart health 04/08/21 [History Last Taken 04/30/23] duloxetine 30 mg capsule,delayed release 30 mg PO DAILY depression 10/06/21 [History Last Taken 04/30/23] Wheel Chair 11/15/21 [History Last Taken Unknown] blood sugar diagnostic (True Metrix Glucose Test Strip) 11/15/21 [History Last Taken Unknown] blood-glucose meter,continuous (Dexcom G6 Dental Hygiene Teacher) 11/15/21 [History Last Taken Unknown] pen needle, diabetic 32 gauge x 5/32 (BD Ultra-Fine Key Pen Needle) 11/15/21 [History Last Taken Unknown] nitroglycerin 0.4 mg sublingual tablet 0.4 mg sublingual Q5-15M PRN chest pain #25 tabs 11/20/21 [Rx Last Taken Unknown] ostomy supplies #1 ea 02/13/22 [Rx Last Taken Unknown] atorvastatin 80 mg tablet 80 mg PO QHS CHOLESTEROL LOWERING #90 tabs 08/04/22 [Rx Last Taken 04/30/23] blood-glucose transmitter (Dexcom G6 Transmitter device) #1 ea 08/07/22 [Rx Last Taken Unknown] metoprolol tartrate 50 mg tablet 50 mg PO .COMPLEX blood pressure 09/02/22 [History Last Taken 04/30/23] Handicap Placard #1 ea 09/16/22 [Rx Last Taken Unknown] isosorbide dinitrate 30 mg tablet 30 mg PO BID heart #60 tabs 12/11/22 [Rx Last Taken 04/30/23] blood-glucose sensor (Dexcom G6 Sensor device) #9 ea 12/14/22 [Rx Last Taken Unknown] insulin pump cart,automated,BT (Omnipod 5 G6 Pods (Gen 5) subcutaneous cartridge) #45 ea 01/13/23 [Rx Last Taken Unknown] Juanita Cohesive Seal 2 diameter #15 ea 01/18/23 [Rx Last Taken Unknown] Esenta Sting Free Adhesive Remover Wipe - #15 ea 01/18/23 [Rx Last Taken Unknown] Esenta Sting Free Skin Barrier Rollins, 50 mL - #15 ea 01/18/23 [Rx Last Taken Unknown] Esteem + Convex One-Piece Drainable Pre-Cut Pouch w/ visiClose, Durahesive, 12 panel [place], 1 03/15 #15 ea 01/18/23 [Rx Last Taken Unknown] clopidogrel 75 mg tablet 75 mg PO DAILY heart health #90 tabs 02/04/23 [Rx Last Taken 04/30/23] blood sugar diagnostic (True Metrix Glucose Test Strip) #100 ea 02/08/23 [Rx Last Taken Unknown] buprenorphine 15 mcg/hour weekly transdermal patch 1 patch transdermal Q7D pain 02/10/23 [History Last Taken 05/01/23] melatonin 5 mg tablet 5 mg PO HS sleep 02/10/23 [History Last Taken 04/30/23] cyclobenzaprine 10 mg tablet 10 mg PO TID PRN muscle spasm #30 tabs 02/24/23 [Rx Last Taken 04/30/23] benzonatate 200 mg capsule 200 mg PO BID PRN cough #30 caps 03/10/23 [Rx Last Taken Unknown] trazodone 50 mg tablet 50 mg PO QHS sleep 03/18/23 [History Last Taken 04/30/23] cholestyramine (with sugar) 4 gram powder for susp in a packet 4 g PO BIDAC stool #60 ea 03/31/23 [Rx Last Taken 04/30/23] dicyclomine 10 mg capsule 20 mg (2 x 10 mg) PO BID PRN abdominal pain #30 caps 03/31/23 [Rx Last Taken 04/30/23] diphenoxylate-atropine 2.5 mg-0.025 mg tablet (Lomotil) 1 tab PO TID diarrhea #90 tabs 03/31/23 [Rx Last Taken 04/30/23] dapagliflozin propanediol 10 mg tablet (Farxiga) 10 mg PO DAILY diabetes #90 tabs 04/03/23 [Rx Last Taken 04/30/23] insulin lispro 200 unit/mL (3 mL) subcutaneous pen (Humalog KwikPen U-200 Insulin) 160 unit (0.8 mL) subcut DAILY diabetes #72 mL 04/21/23 [Rx Last Taken Unknown] metoprolol tartrate 25 mg tablet 25 mg PO .COMPLEX bp #180 tabs 04/29/23 [Rx Last Taken 04/30/23] pantoprazole 40 mg tablet,delayed release (Protonix) 40 mg PO BID GERD #60 tabs 04/29/23 [Rx Last Taken 04/30/23] pregabalin 75 mg capsule 75 mg PO BID #56 caps 04/29/23 [Rx Last Taken 04/30/23] albuterol sulfate 90 mcg/actuation aerosol inhaler 2 puff inhalation BID PRN SOB 05/01/23 [History Last Taken Unknown] duloxetine 60 mg capsule,delayed release 60 mg PO DAILY depression 05/01/23 [History Last Taken 04/30/23] lamotrigine 200 mg tablet 200 mg PO DAILY 05/01/23 [History Last Taken 04/30/23] Allergy/AdvReac Type Severity Reaction Status Date / Time ciprofloxacin Allergy Intermediate Swelling Verified 05/01/23 10:08 cinnamon [Cinnamon] Allergy Anaphylaxis Verified 05/01/23 10:08 Influenza Virus Vaccines Allergy Shortness Verified 05/01/23 10:08 of breath liraglutide [From Victoza] Allergy Anaphylaxis Verified 05/01/23 10:08 metformin [From Glucophage] Allergy NEEDS Verified 05/01/23 10:08 FOLLOW-UP metronidazole [From Flagyl] Allergy Hives Verified 05/01/23 10:08 Metronidazole HCl Allergy Hives Verified 05/01/23 10:08 [From Flagyl] Penicillins Allergy Hives Verified 05/01/23 10:08 Sulfa (Sulfonamide Allergy Hives Verified 05/01/23 10:08 Antibiotics) aripiprazole [From Abilify] AdvReac hallucinati Verified 05/01/23 10:08 ons codeine AdvReac Stops Verified 05/01/23 10:08 Ileostomy metformin HCl AdvReac Nausea Verified 05/01/23 10:08 [From Glucophage] ranolazine AdvReac Nausea/Vom/ Verified 05/01/23 10:08 Diarrhea [id number] Reductase AdvReac Nausea/joints Verified 05/01/23 10:08 Inhibitor ache [Hclawui-Dhf-Psy Reductase Inhibitor] Family History Mother CVA (cerebral vascular accident) Diabetes Brother Heart disease of CAD at 65 Myocardial infarction Pancreatitis Father Cancer lymphomia Lymphoma Grandmother Myocardial infarction of IA in her 70s Sister COPD (chronic obstructive pulmonary disease) Surgical History H/O colectomy H/O coronary artery bypass surgery (05/18/12) H/O sinus surgery H/O total hysterectomy history closed fissure History of appendectomy History of History of cardiac catheterization History of cholecystectomy History of coronary artery stent placement (01/12/18) History of coronary artery stent placement ileostomy Ileostomy status left thumb surgery Status post total hip replacement, left Social History household members: none Smoking Status: Former smoker quit date: 03/08/12 how long ago did patient quit smoking: quit in 2012; 0.5-1ppd x 30yrs alcohol intake: never substance use type: does not use diet: diabetic caffeine: No eating out: 1-3 times/week what type of physical activity do you participate in: none seatbelt use: always do you feel safe at home: Yes ROS ROS Narrative As per HPI. Otherwise noncontributory. Physical Exam Narrative General: Alert and oriented x3, NAD. HEENT: Normocephalic, atraumatic. Mucous membrane dry without erythema. PERRLA, EOMI. Hearing is intact. Neck: Supple, no JVD. Trachea is midline. No thyromegaly or lymphadenopathy. Cardiovascular: Normal S1, S2. No rubs, murmurs, or gallops. Respiratory: Lungs are clear to auscultation bilaterally. No wheezing, rhonchi, or rales. Abdomen: Normal bowel sounds, soft, nontender, no guarding or rebound, no organomegaly. Extremities: No clubbing, cyanosis, or edema. Musculoskeletal: Full passive range of motion, no joint swelling. Psychiatric: Normal mood and affect. Skin: Warm and dry, no rash. Neurologic: Cranial nerve II to XII are grossly intact. No focal neurologic deficits. Lab / Micro Data 05/01/23 10:43 05/01/23 18:10 Labs: Laboratory Results - last 24 hr 05/01/23 10:43: WBC 15.6 H, RBC 5.40, Hgb 14.5, Hct 46.9, MCV 86.9, MCH 26.9 L, MCHC 30.9 L, RDW Std Deviation 53.3 H, RDW Coeff of Jan 17.3 H, Plt Count 277, MPV 12.2 H, Immature Gran % (Auto) 0.400, Neut % (Auto) 51.7, Lymph % (Auto) 32.2, [place] % (Auto) 6.7, Eos % (Auto) 8.7 H, Baso % (Auto) 0.3, Absolute Neuts (auto) 8.0 H, Absolute Lymphs (auto) 5.02 H, Nucleated RBC % 0, Reactive Lymphocytes 2+, Toxic Granulation 1+, Sodium 129 L, Potassium 6.3 H*, Chloride 105, Carbon Dioxide 15.0 L, Anion Gap 9, BUN 54 H, Creatinine 4.34 H, Est GFR (MDRD) Af Amer 13 L, Est GFR (MDRD) Non-Af 11 L, BUN/Creatinine Ratio 12.4, Glucose 335 H, Calcium 10.0, Total Bilirubin 1.40 H, AST 17, ALT 17, Alkaline Phosphatase 168 H, Total Protein 9.0 H, Albumin 3.5, Globulin 5.5 H, Albumin/Globulin Ratio 0.6 L 05/01/23 13:00: Potassium 5.9 H 05/01/23 14:35: Urine Color Yellow, Urine Clarity Sl. Cloudy, Urine pH 5.0, Ur Specific [place] 1.025, Urine Protein 100 H, Urine Glucose (UA) Normal, Urine Ketones 15 H, Urine Occult Blood 25 H, Urine Nitrite Negative, Urine Bilirubin 3 H, Urine Urobilinogen 1 H, Ur Leukocyte Esterase 100 H, Urine RBC 0-5 SEEN, Urine WBC 5-10 SEEN, Ur Squamous Epith Cells 10-25 SEEN, Ur Transition Epith Cell 0-5 SEEN, Urine Bacteria 2+, Urine Mucus 0 SEEN, Urine Osmolality 362, U Random Total Protein 214.3 H, Ur Random Sodium 5, Urine Creatinine 266.00, Protein/Creatinin Ratio 806 H, Urine Potassium 84.0, Urine Chloride < 10 05/01/23 17:06: POC Glucose 174 H 05/01/23 18:05: Serum Osmolality 307 H 05/01/23 18:10: Sodium 136, Potassium 5.1, Chloride 111 H, Carbon Dioxide 19.0 L, Anion Gap 6, BUN 55 H, Creatinine 4.01 H, Estim Creat Clear Calc 16.12, Est GFR (MDRD) Af Amer 14 L, Est GFR (MDRD) Non-Af 12 L, BUN/Creatinine Ratio 13.7, Glucose 223 H, Calcium 10.1 Micro: Microbiology 05/01/23 14:35 Stool Stool Lactoferrin - Final 05/01/23 14:35 Stool Clostridioides difficile (PCR) - Final 05/01/23 14:35 Stool Stool Occult Blood (MAYTE) - Final Rhythm Strip Rhythm Strip: Sinus Rhythm Rate: 74 Ectopy: None
[2023-05-01] MEDS: MELATONIN 10 MG TABLET 5 MG PO (21:50)
[2023-05-01] MEDS: Metoprolol Tartrate 25 MG Tablet PO (21:50)
[2023-05-01] MEDS: Pantoprazole Sodium 40 MG Tablet PO (21:50)
[2023-05-01] MEDS: traZODone 50 MG Tablet PO (21:51)
[2023-05-01] MEDS: Metoprolol Tartrate 50 MG Tablet PO (21:51)
[2023-05-01] MEDS: Isosorbide DN 30 MG Tablet PO (21:51)
[2023-05-01] MEDS: Heparin Injection (Vial) 5,000 UNIT/ML VIAL 5000 UNIT SC (21:53)
[2023-05-01] MEDS: Diphenoxylate/Atrop 1 Tablet PO (21:57)
--- NOTE | 2023-05-01 22:01 | NURSING ---
Pt's CGM glucose reading 224, pt giving insulin bolus of 8 units per insulin pump's recommended dose.
[2023-05-02] VITALS (11 sets, daily range): BP systolic 110–140; BP diastolic 52–63; PULSE 64–85; RESP 14–16; TEMP 36.6–37; O2SAT 92–97; BMI 30.6
[2023-05-02] MEDS: Dicyclomine 10 MG Capsule 20 MG PO ×3 (05:23→20:24)
[2023-05-02] MEDS: 0.9% Normal Saline (1000mL) 1,000 ML 125 ML IV (05:23)
[2023-05-02] MEDS: Diphenoxylate/Atrop 1 Tablet PO ×3 (05:23→20:30)
[2023-05-02 06:21] LABS: Absolute Lymphocyte Count 3.14 X10^3/uL (0.83-4.51); Absolute Neutrophil Count 4.3 X10^3/uL (2.0-7.7); Basophil# 0.02 X10^3/uL; Basophil% 0.2 % (0-1); Eosinophils% 11.6 % (0-5); Hematocrit 34.8 % (37-47); Hemoglobin 10.8 g/dL (12.0-15.0); Lymphocyte # 3.14 X10^3/ul (0.83-4.51); Lymphocyte % 33.1 % (19-41); Mean Corpuscular Hgb 26.7 pg (27.0-32.0); Mean Corpuscular Volume 85.9 fL (81-99); Mean Platelet Vol. 12.3 fl (6.2-12.0); Monocyte# 0.93 X10^3/uL; Monocyte% 9.8 % (0-10); NRBC Flagged by Analyzer 0 % (0-5); Neutrophil # 4.26 X10^3/uL (2.7-7.7); Neutrophil % 44.9 % (47-70); Platelet Count 192 K/mm3 (150-450); RBC Distribution Width CV 16.8 % (11.6-14.6); RBC Distribution Width SD 51.8 fl (35.1-43.9); Red Blood Count 4.05 M/mm3 (4.2-5.4); White Blood Count 9.5 K/mm3 (4.4-11.0)
[2023-05-02] MEDS: Cholestyramine/Sucrose 4 GM/PACKET PO ×2 (06:47→16:20)
[2023-05-02 07:11] LABS: Anion Gap 4 (5-15); BUN 52 mg/dL (7-18); BUN/Creat Ratio 14.4 RATIO (10-20); Calcium,Total 8.9 mg/dL (8.5-10.1); Chloride 111 mmol/L (98-107); Creatinine, Serum 3.61 mg/dL (0.55-1.02); EST Glomerular Filtration Rate 14 mL/min (>60); Est Glom Filt Rate - Afr Amer 16 mL/min (>60); Estimated Creatinine Clearance 17.99 ml/min; Glucose 87 mg/dL (74-106); Potassium 4.1 mmol/L (3.5-5.1); Sodium Level 137 mmol/L (136-145); Thyroid Stim Hormone (TSH) 1.76 uIU/mL (0.358-3.74)
--- NOTE | 2023-05-02 09:39 | PN.HOSP_ITS ---
Reason for Visit Reason for Visit: Diagnoses Acute metabolic acidosis (05/01/23) Hyperkalemia (05/01/23) Acute kidney failure, unspecified (05/01/23) Chronic kidney disease, unspecified (05/01/23) Objective Data Objective Data Vital Signs: Vital Signs Temp Pulse Resp BP Pulse Ox O2 Del Method 97.9 F 66 16 116/54 L 97 Room Air 05/02/23 09:30 05/02/23 09:30 05/02/23 09:30 05/02/23 09:30 05/02/23 09:30 05/02/23 09:30 Oxygen Delivery Method Room Air Weight: 195 lb 5.273 oz Body Mass Index (BMI) 30.6 Intake & Output: Intake and Output for Last 24 Hours 04/30/23 05/01/23 05/02/23 23:59 23:59 23:59 Intake Total 3004.17 / 3004.17 1939.58 / 1939.58 Output Total 850 / 1350 1000 / 1000 Balance 2154.17 / 1654.17 939.58 / 939.58 Lab / Micro Data 05/02/23 05:10 05/02/23 05:10 Labs: Laboratory Results - last 24 hr 05/01/23 10:43: WBC 15.6 H, RBC 5.40, Hgb 14.5, Hct 46.9, MCV 86.9, MCH 26.9 L, MCHC 30.9 L, RDW Std Deviation 53.3 H, RDW Coeff of Jan 17.3 H, Plt Count 277, MPV 12.2 H, Immature Gran % (Auto) 0.400, Neut % (Auto) 51.7, Lymph % (Auto) 32.2, [place] % (Auto) 6.7, Eos % (Auto) 8.7 H, Baso % (Auto) 0.3, Absolute Neuts (auto) 8.0 H, Absolute Lymphs (auto) 5.02 H, Nucleated RBC % 0, Reactive Lymphocytes 2+, Toxic Granulation 1+, Sodium 129 L, Potassium 6.3 H*, Chloride 105, Carbon Dioxide 15.0 L, Anion Gap 9, BUN 54 H, Creatinine 4.34 H, Est GFR (MDRD) Af Amer 13 L, Est GFR (MDRD) Non-Af 11 L, BUN/Creatinine Ratio 12.4, Glucose 335 H, Calcium 10.0, Total Bilirubin 1.40 H, AST 17, ALT 17, Alkaline Phosphatase 168 H, Total Protein 9.0 H, Albumin 3.5, Globulin 5.5 H, Albumin/Globulin Ratio 0.6 L 05/01/23 13:00: Potassium 5.9 H 05/01/23 14:35: Urine Color Yellow, Urine Clarity Sl. Cloudy, Urine pH 5.0, Ur Specific [place] 1.025, Urine Protein 100 H, Urine Glucose (UA) Normal, Urine Ketones 15 H, Urine Occult Blood 25 H, Urine Nitrite Negative, Urine Bilirubin 3 H, Urine Urobilinogen 1 H, Ur Leukocyte Esterase 100 H, Urine RBC 0-5 SEEN, Urine WBC 5-10 SEEN, Ur Squamous Epith Cells 10-25 SEEN, Ur Transition Epith Gladis l 0-5 SEEN, Urine Bacteria 2+, Urine Mucus 0 SEEN, Urine Osmolality 362, U Random Total Protein 214.3 H, Ur Random Sodium 5, Urine Creatinine 266.00, Protein/Creatinin Ratio 806 H, Urine Potassium 84.0, Urine Chloride < 10 05/01/23 17:06: POC Glucose 174 H 05/01/23 18:05: Serum Osmolality 307 H 05/01/23 18:10: Sodium 136, Potassium 5.1, Chloride 111 H, Carbon Dioxide 19.0 L , Anion Gap 6, BUN 55 H, Creatinine 4.01 H, Estim Creat Clear Calc 16.12, Est GFR (MDRD) Af Amer 14 L, Est GFR (MDRD) Non-Af 12 L, BUN/Creatinine Ratio 13.7, Glucose 223 H, Calcium 10.1 05/02/23 05:10: WBC 9.5, RBC 4.05 L, Hgb 10.8 L, Hct 34.8 L, MCV 85.9, MCH 26.7 L, MCHC 31.0 L, RDW Std Deviation 51.8 H, RDW Coeff of Jan 16.8 H, Plt Count 192, MPV 12.3 H, Immature Gran % (Auto) 0.400, Neut % (Auto) 44.9 L, Lymph % (Auto) 33.1, [place] % (Auto) 9.8, Eos % (Auto) 11.6 H, Baso % (Auto) 0.2, Absolute Neuts (auto) 4.3, Absolute Lymphs (auto) 3.14, Nucleated RBC % 0, Sodium 137, Potassium 4.1, Chloride 111 H, Carbon Dioxide 22.0, Anion Gap 4 L, BUN 52 H, Creatinine 3.61 H, Estim Creat Clear Calc 17.99, Est GFR (MDRD) Af Amer 16 L, Est GFR (MDRD) Non-Af 14 L, BUN/Creatinine Ratio 14.4, Glucose 87, Calcium 8.9, TSH 1.76 Micro: Microbiology 05/01/23 14:35 Stool Stool Lactoferrin - Final 05/01/23 14:35 Stool Clostridioides difficile (PCR) - Final 05/01/23 14:35 Stool Stool Occult Blood (MAYTE) - Final Rhythm Strip Rhythm Strip: Sinus Rhythm Rate: 74 Ectopy: None Physical Exam Narrative Seen and examined. Patient feels slightly better than yesterday. Liquid diarrhea is little bit solidifying with greenish-yellowish faces in ileostomy bag. Physical exam General: Fatigued but better than yesterday awake oriented x 3. HEENT: Atraumatic, PERRLA, EOMI, Normocephalic Oral: Oral mucosa moist. No Gingival or Mucosal Lesions/ Ulcerations Neck: Supple, No JVD, Negative Carotid Bruits Chest wall/Lungs: Air entry diminished in bilateral lung bases. No cr epitation/rhonchi Cardiovascular: Regular rate, Regular Rhythm, Normal S1, Normal S2, No M/G/R Abdomen: Bowel Sounds Present, Soft, Non Tender, nondistended. Left-sided ileostomy with liquid plus semisolid recent. : Oliguria. No renal angle tenderness. No suprapubic tenderness. Extremities: No edema, Capillary Refill Less than 3 Seconds Skin: No rashes, No breakdown Musculoskeletal: No Tenderness to Palpation of Joints or Extremities ROM restricted at left hip joint. Neurological: Cranial nerves II-XII grossly intact, DTR 2+/4. No acute focal neurological deficit. Psych/Mental Status: Flat affect. Assessment & Plan Assessment/Plan (1) Acute hyperkalemia: (2) Acute on chronic kidney failure: PLAN: Plan This is 62-year-old female is being admitted for RALPH with hyperkalemia 1. RALPH on CKD stage IIIb with hyperkalemia mainly prerenal/decreased renal plasma flow: Patient is being admitted in PCU. BUNs/creatinine 50/4.3, BUN/creatinine ratio 12. Serum potassium 6.3 and patient was given hyperkalemia cocktail and IV fluid normal saline bolus in ED. Repeat potassium 5.9 therefore we will repeat hyperkalemia cocktail. Patient had 2 L of normal saline bolus. Bicarb 15, anion gap 9 therefore IV fluids changed to bicarb infusion drip at 150 mill per hour. Will repeat BMP in 4 hours. Software Team Leader consulted. Urine electrolytes ordered. UA is ordered. 05/02: Leukocytosis has resolved. Hemoconcentration, hematocrit 46.9% improved to 10.8/34% that is her baseline. Continue IV fluid replacement. Seen by voyage management system operator. BUNs/creatinine improving 52/3.69. Serum potassium normal 4.1. Stool for C. difficile negative. Stool for lactoferrin and occult blood negative. Currently she is on once weekly IV fluid infusion may be has to increase to twice daily to prevent RALPH. 2. Hypotonic hypovolemic hyponatremia: IV fluid normal saline. Serum sodium is 129. Monitor serum sodium. Patient getting normal saline. Rest as mentioned above. 05/02: Bicarb improved to 22 after bicarb infusion drip.Will change IV fluid to half-normal saline. 3. Diabetes mellitus type 2: Patient has insulin pump. Instruction given to nursing staff to continue the insulin pump. 4. Gastroparesis: Patient during previous admission Reglan was held but currently not on Reglan on her home medications. 5. GERD ? On PPI 6. Coronary artery disease -Has history of CABG and subsequent stent placement. Patient is on guideline directed medical therapy 7. MGUS ? Patient is followed by oncology as outpatient 8. History of ulcerative colitis ? Status post ileostomy with resultant short gut syndrome. Patient on Lomotil and cholestyramine. Patient also on dicyclomine. 9. Essential hypertension ? Patient antihypertensives held given her relatively low blood pressure 10. Chronic pain syndrome ? Patient is on buprenorphine 11. Depression ? Patient is on duloxetine 12. Psoriasis ? Patient had previously been treated with Humira taking off during the COVID pandemic 13. Hypomagnesemia ? Secondary to patient high output ileostomy corrected per protocol repeat magnesium and phosphorus ordered for a.m. 14. DVT prophylaxis - On heparin 530 unit subcutaneous twice daily adjusted to creatinine clearance. The management plan discussed with the patient's partner near the bedside. Living will/advanced directive/end of life care: Patient does have living will or advanced directive. After discussion of benefits/risks procedures involved with full code, DNR CC arrest and DNR CC, the patient opted for full code. Patient does want artificial life support including intubation, tube feed, ventilator and/chest compression, central venous catheter, vasopressor and DC shock if needed Total time spent in [id number] encounter in discussion of advanced directive 17 minutes. Charges/Coding Visit Charges Inpatient E&M: 82764 Subs Hosp L2
[2023-05-02] MEDS: DULoxetine Hcl 60 MG Capsule PO (09:48)
[2023-05-02] MEDS: Aspirin E.C. 81 MG Tablet PO (09:48)
[2023-05-02] MEDS: DULoxetine Hcl 30 MG Capsule PO (09:48)
[2023-05-02] MEDS: Heparin Injection (Vial) 5,000 UNIT/ML VIAL 5000 UNIT SC ×2 (09:49→20:25)
[2023-05-02] MEDS: lamoTRIgine 100 MG Tablet 200 MG PO (09:50)
[2023-05-02] MEDS: Isosorbide DN 30 MG Tablet PO ×2 (09:50→20:27)
[2023-05-02] MEDS: Metoprolol Tartrate 50 MG Tablet PO ×2 (09:50→20:26)
[2023-05-02] MEDS: Clopidogrel Bisulfate 75 MG Tablet PO (09:51)
[2023-05-02] MEDS: Metoprolol Tartrate 25 MG Tablet PO ×2 (09:51→20:25)
[2023-05-02] MEDS: Pantoprazole Sodium 40 MG Tablet PO ×2 (09:51→20:26)
[2023-05-02] MEDS: Acetaminophen 325 MG Tablet 650 MG PO (10:02)
--- NOTE | 2023-05-02 17:04 | PN.RENAL_ITS ---
Subjective Subjective Following for RALPH on CKD. The patient denies chest pain, shortness of breath, or nausea. Appetite is better. Ostomy output has also slowed down. However, patient still complains of cramping of her hands. Objective Data Objective Data Vital Signs: Vital Signs Temp Pulse Resp BP Pulse Ox O2 Del Method 97.8 F 83 16 140/63 H 96 Room Air 05/02/23 16:10 05/02/23 16:10 05/02/23 16:10 05/02/23 16:10 05/02/23 16:10 05/02/23 16:10 Oxygen Delivery Method Room Air Weight: 88.6 kg Body Mass Index (BMI) 30.6 Intake & Output: Intake and Output for Last 24 Hours 04/30/23 05/01/23 05/02/23 23:59 23:59 23:59 Intake Total 3004.17 / 3004.17 2939.58 / 2939.58 Output Total 850 / 1350 1000 / 1000 Balance 2154.17 / 1654.17 1939.58 / 1939.58 Lab / Micro Data 05/02/23 05:10 05/02/23 05:10 Labs: Laboratory Results - last 24 hr 05/01/23 17:06: POC Glucose 174 H 05/01/23 18:05: Serum Osmolality 307 H 05/01/23 18:10: Sodium 136, Potassium 5.1, Chloride 111 H, Carbon Dioxide 19.0 L , Anion Gap 6, BUN 55 H, Creatinine 4.01 H, Estim Creat Clear Calc 16.12, Est GFR (MDRD) Af Amer 14 L, Est GFR (MDRD) Non-Af 12 L, BUN/Creatinine Ratio 13.7, Glucose 223 H, Calcium 10.1 05/02/23 05:10: WBC 9.5, RBC 4.05 L, Hgb 10.8 L, Hct 34.8 L, MCV 85.9, MCH 26.7 L, MCHC 31.0 L, RDW Std Deviation 51.8 H, RDW Coeff of Jan 16.8 H, Plt Count 192, MPV 12.3 H, Immature Gran % (Auto) 0.400, Neut % (Auto) 44.9 L, Lymph % (Auto) 33.1, [place] % (Auto) 9.8, Eos % (Auto) 11.6 H, Baso % (Auto) 0.2, Absolute Neuts (auto) 4.3, Absolute Lymphs (auto) 3.14, Nucleated RBC % 0, Sodium 137, Potassium 4.1, Chloride 111 H, Carbon Dioxide 22.0, Anion Gap 4 L, BUN 52 H, Creatinine 3.61 H, Estim Creat Clear Calc 17.99, Est GFR (MDRD) Af Amer 16 L, Est GFR (MDRD) Non-Af 14 L, BUN/Creatinine Ratio 14.4, Glucose 87, Calcium 8.9, TSH 1.76 Micro: Microbiology 05/01/23 14:35 Stool Stool Lactoferrin - Final 05/01/23 14:35 Stool Enteric Bacteriology - Final 05/01/23 14:35 Stool Clostridioides difficile (PCR) - Final 05/01/23 14:35 Stool Stool Occult Blood (MAYTE) - Final Rhythm Strip Rhythm Strip: Sinus Rhythm Rate: 74 Ectopy: None Physical Exam Narrative General: Alert and oriented x3, NAD. HEENT: Normocephalic, atraumatic. Mucous membrane dry. Neck: Supple, no JVD. Trachea is midline. No thyromegaly or lymphadenopathy. Cardiovascular: Normal S1, S2. No rubs, murmurs, or gallops. Respiratory: Lungs are clear to auscultation bilaterally. No wheezing, rhonchi, or rales. Abdomen: Normal bowel sounds, soft, nontender, no guarding or rebound, no organomegaly. Extremities: No clubbing, cyanosis, or edema. Musculoskeletal: Full passive range of motion, no joint swelling. Assessment & Plan Assessment/Plan (1) Acute kidney injury: (2) Acute hyperkalemia: (3) Acute metabolic acidosis: PLAN: Plan Impression/Plan: The patient is a 62-year-old woman with past history of ulcerative colitis status post total colectomy and end ileostomy complicated by short-bowel syndrome, type 2 diabetes mellitus, hypertension, hepatic steatosis, GERD, and depression. The patient presents on 05/01/2023 with recurrent high ostomy output. Nephrology is following for RALPH on CKD. Acute kidney injury on chronic kidney disease stage G4. Baseline serum creatinine appears to be around 2.30 mg/dL. The patient presented with serum creatinine of 4.34 mg/dL on 05/01/2023. RALPH is secondary to decreased EBV from GI fluid loss. Renal function has improved with volume expansion. Serum creatinine has decreased from 4.34 mg deciliter on 05/01/2023 down to 3.61 mg/dL today. The patient was initially given IV sodium bicarbonate infusion with improvement in bicarbonate level and potassium level. She is currently on off of maintenance IV fluid I agree with continued efforts to expand volume. The patient still appears to be volume down. I will give her 1 more liter of isotonic IV fluid. Continue keep MAP above 65 mmHg. There is no need for kidney replacement therapy. Recheck renal function, volume status, acid-base status and electrolytes again tomorrow. Hyperkalemia. The patient presented with potassium level of 6.3 mmol/L on 05/01/2023. Hyperkalemia is likely due to combination of RALPH on CKD along with acute meta bolic acidosis. The patient was treated with IV sodium bicarbonate on 05/01/2023. Potassium level has improved and is down to 4.1 mmol/L today. Continue current effort to volume expand patient to improve renal function which will help the kidney excrete excess potassium. Recheck potassium level tomorrow. Acute metabolic acidosis. Bicarbonate level was 15 mmol/L on presentation on 05/01/2023. Serum bicarbonate level was 27 mmol/L on 04/21/2023. Serum bicarbonate level has improved with improvement in renal function with 1 expansion. Serum bicarbonate level is up to 22 mmol liter today. Will continue to monitor serum bicarbonate level as the patient is being volume expanded.
[2023-05-02] MEDS: Lactated Ringers 1,000 ML 200 ML IV ×2 (18:51→23:11)
--- NOTE | 2023-05-02 18:59 | NURSING ---
Blood sugar checked by pt at lunch was 185, after lunch pt gave self bolus of 11.5u.
[2023-05-02] MEDS: traZODone 50 MG Tablet PO (20:25)
[2023-05-02] MEDS: MELATONIN 10 MG TABLET 5 MG PO (20:26)
[2023-05-03 01:53] VITALS: BMI 31.9
[2023-05-03 02:20] VITALS: BP 124/56; BP 128/53; PULSE 81; RESP 16; TEMP 36.9; TEMP 37; O2SAT 93
[2023-05-03] MEDS: Dicyclomine 10 MG Capsule 20 MG PO (05:28)
[2023-05-03] MEDS: Diphenoxylate/Atrop 1 Tablet PO (05:28)
[2023-05-03 08:01] LABS: Albumin, Serum 2.4 g/dL (3.2-5.0); BUN 41 mg/dL (7-18); BUN/Creat Ratio 17.7 RATIO (10-20); Calcium,Total 9.1 mg/dL (8.5-10.1); Chloride 117 mmol/L (98-107); Creatinine, Serum 2.32 mg/dL (0.55-1.02); EST Glomerular Filtration Rate 22 mL/min (>60); Est Glom Filt Rate - Afr Amer 27 mL/min (>60); Glucose 133 mg/dL (74-106); Potassium 4.5 mmol/L (3.5-5.1); Sodium Level 141 mmol/L (136-145)
[2023-05-03 08:29] VITALS: BP 131/51; PULSE 65; RESP 14; TEMP 36.3; O2SAT 96
[2023-05-03 08:45] VITALS: PULSE 65; RESP 14
--- NOTE | 2023-05-03 09:16 | PCM.DC ---
Discharge Instructions Diet Discharge Diet: Light diet - advance as tolerated Activity Discharge Activity: Return to Normal Activity Weight Bearing Status: Weight bearing as tolerated Dressing / Incision Call your doctor if you observe: Fever of 101 or Higher, Coldness, Increased Pain, Numbness or Tingling, Change in Color, Inability to urinate, Inability to have a bowel movement, Using more than 1 pad per hour, Shortness of breath, Dizziness, Fainting spells, Swelling in the ankles, Chest pain, Prolonged hiccupping, Increased palpitations (irregular heartbeat) and Calf discomfort Follow Up Care When: IN 2 WEEKS Test Results: Test results from this visit will be discussed in further detail at your follow-up appointment, if applicable. Discharge Plan Admission Admit Date/Time: 05/01/23 11:29 Primary Reason for Your Visit: RALPH due to hypovolemia, short-bowel syndrome, high output ileostomy Attending Provider: Castillo Ferris Primary Care Provider: Mala Mcgrath Consulting Providers: Eloy Guan Instructions Additional Instructions / Restrictions: Advised 2 L IV fluid Ringer lactate 3 times a week. She gets IV fluid for high output ileostomy through [facility]. EF 65% as per echo December 2022 Discharge Orders/Prescriptions Prescriptions: New dicyclomine 10 mg Capsule 10 mg PO BID 30 Days Qty: 60 0RF Continued duloxetine 30 mg capsule,delayed release(DR/EC) 30 mg PO DAILY Patient Comments: pt takes , 30 mg cap & 60 mg cap to equal 90 mg cap nitroglycerin 0.4 mg tablet, sublingual 0.4 mg sublingual Q5-15M PRN (Reason: chest pain) Qty: 25 6RF Rx Instructions: do not exceed 3 doses per episode buprenorphine 15 mcg/hour patch weekly 1 patch transdermal Q7D Patient Comments: changes on wednesday melatonin 5 mg tablet 5 mg PO HS (DME) Handicap Placard See Rx Instructions .ROUTE .MEDSUPPLY Qty: 1 0RF Rx Instructions: As directed, length of time 3 years (DME) True Metrix Glucose Test Strip Strip See Rx Instructions .Route Qty: 100 5RF Rx Instructions: TID cyclobenzaprine 10 mg tablet 10 mg PO TID PRN (Reason: muscle spasm) Qty: 30 0RF benzonatate 200 mg capsule 200 mg PO BID PRN (Reason: cough) Qty: 30 0RF dicyclomine 10 mg capsule 20 mg PO BID PRN (Reason: abdominal pain) Qty: 30 2RF diphenoxylate-atropine [Lomotil] 2.5-0.025 mg tablet 1 tab PO TID Qty: 90 2RF cholestyramine (with sugar) 4 gram powder in packet 4 g PO BIDAC Qty: 60 11RF aspirin 81 mg Tablet,Delayed Release (Dr/Ec) 81 mg PO DAILY Hold Instructions: Resume on 06/10/22. ([facility] [place]) True Metrix Glucose Test Strip Strip See Rx Instructions .Route Rx Instructions: 3 times per day No longer ([facility] [place]) Dexcom G6 Branch Account Manager Misc See Rx Instructions .ROUTE .MEDSUPPLY Rx Instructions: As directed ([facility] [place]) pen needle, diabetic [BD Ultra-Fine Key Pen Needle] 32 gauge x 5/32 needle See Rx Instructions .ROUTE .MEDSUPPLY Rx Instructions: takes 5 injection/day ([facility] [place]) Wheel Chair See Rx Instructions Rx Instructions: As directed metoprolol tartrate 50 mg tablet 50 mg PO .COMPLEX Rx Instructions: 50 mg orally twice a day with a 25 mg tablet twice a day to = 75 mg twice a day; trazodone 50 mg tablet 50 mg PO QHS duloxetine 60 mg capsule,delayed release(DR/EC) 60 mg PO DAILY Patient Comments: pt takes , 30 mg cap & 60 mg cap to equal 90 mg cap lamotrigine 200 mg tablet 200 mg PO DAILY albuterol sulfate 90 mcg/actuation HFA aerosol inhaler 2 puff INHALATION BID PRN (Reason: SOB) ([facility] [place]) ostomy supplies See Rx Instructions .Route .MEDSUPPLY Qty: 1 0RF Rx Instructions: Pouches Barrier rings Adhesive remover Skin Prep Barrier powder atorvastatin 80 mg tablet 80 mg PO QHS Qty: 90 3RF Patient Comments: cholesterol ([facility] [place]) Dexcom G6 Transmitter Device See Rx Instructions .ROUTE .MEDSUPPLY Qty: 1 3RF Rx Instructions: 1 transmitter every 90 days isosorbide dinitrate 30 mg tablet 30 mg PO BID Qty: 60 11RF ([facility] [place]) Dexcom G6 Sensor Device See Rx Instructions .ROUTE .MEDSUPPLY Qty: 9 1RF Rx Instructions: 1 sensor every 10 days ([facility] [place]) Omnipod 5 G6 Pods (Gen 5) Cartridge See Rx Instructions .Route Qty: 45 1RF Rx Instructions: 1 pod q 48 hours (DME) Juanita Cohesive Seal 2 diameter See Rx Instructions .Route .MEDSUPPLY Qty: 15 7RF Rx Instructions: As directed (DME) Esenta Sting Free Adhesive Remover Wipe - See Rx Instructions .Route .MEDSUPPLY Qty: 15 7RF Rx Instructions: As directed (DME) Esenta Sting Free Skin Barrier [place], 50 mL - See Rx Instructions .Route .MEDSUPPLY Qty: 15 7RF Rx Instructions: As directed (DME) Esteem + Convex One-Piece Drainable Pre-Cut Pouch w/ visiClose, Durahesive, 12 panel [place], 1 03/15 See Rx Instructions .Route .MEDSUPPLY Qty: 15 7RF Rx Instructions: As directed clopidogrel 75 mg tablet 75 mg PO DAILY Qty: 90 3RF Hold Instructions: Resume on 06/10/22. Rx Instructions: TAKE 1 TABLET BY MOUTH EVERY DAY dapagliflozin propanediol [Farxiga] 10 mg tablet 10 mg PO DAILY Qty: 90 1RF Humalog KwikPen Insulin 200 unit/mL (3 mL) insulin pen 160 unit subcut DAILY Qty: 72 3RF Rx Instructions: 2.05 units/hr from 12 AM to 6:30 AM 2.15 units/hr from 6:30 AM to 12 AM metoprolol tartrate 25 mg tablet 25 mg PO .COMPLEX Qty: 180 3RF Rx Instructions: 25 mg orally take with a 50 mg tablet twice a day to = 75 mg twice a day; pantoprazole [Protonix] 40 mg tablet,delayed release (DR/EC) 40 mg PO BID Qty: 60 11RF pregabalin 75 mg capsule 75 mg PO BID Qty: 56 0RF Referrals / Follow Up: Mala Mcgrath MD [Primary Care Provider] -
--- NOTE | 2023-05-03 09:19 | PCM.DC.SUM ---
Providers Date of Admission: 05/01/23 Date of Discharge: 05/03/23 Primary Care Physician: Dr. Mala Mcgrath MD Consultations 05/01/23 13:38 Consult: Nephrology Routine Consulting Provider: Eloy Guan Reason for Consult: Severe Hyperkalemia EMERGENT Consult: No MD Notified: Yes Date Notified: 05/01/23 Time Notified: 13:38 Method of Notification: Verbal Reason For Visit: RALPH WITH HYPERKALEMIA Diagnosis Discharge Diagnosis (1) Acute kidney injury: Status: Acute Code(s): N17.9 - Acute kidney failure, unspecified (2) Acute hyperkalemia: Status: Acute Code(s): E87.5 - Hyperkalemia (3) Acute metabolic acidosis: Status: Acute Code(s): E87.21 - Acute metabolic acidosis Plan This is 62-year-old female is being admitted for RALPH with hyperkalemia 1. RALPH on CKD stage IV with hyperkalemia mainly prerenal/decreased renal plasma flow complicated with high output ileostomy, short-bowel syndrome: Patient is being admitted in PCU. BUNs/creatinine 50/4.3, BUN/creatinine ratio 12. Serum potassium 6.3 and patient was given hyperkalemia cocktail and IV fluid normal saline bolus in ED. Repeat potassium 5.9 therefore we will repeat hyperkalemia cocktail. Patient had 2 L of normal saline bolus. Bicarb 15, anion gap 9 therefore IV fluids changed to bicarb infusion drip at 150 mill per hour. Will repeat BMP in 4 hours. Industrial Ecologist consulted. Urine electrolytes ordered. UA is ordered. 05/02: Leukocytosis has resolved. Hemoconcentration, hematocrit 46.9% improved to 10.8/34% that is her baseline. Continue IV fluid replacement. Seen by artist agent. BUNs/creatinine improving 52/3.69. Serum potassium normal 4.1. Currently she is on once weekly IV fluid infusion may be has to increase to twice daily to prevent RALPH. 05/03: RALPH is resolved. Patient's creatinine back to the baseline 2.32. Her creatinine is back to baseline. Discussed with artist agent. Will try to maintain this creatinine. Discussed with the [facility] office and ordered for IV fluid 2 L, twice a week in the infusion clinic to prevent further episodes of RALPH. She has high output ileostomy with short-bowel syndrome. Follows Dr. Andino. 2. Hypotonic hypovolemic hyponatremia: IV fluid normal saline. Serum sodium is 129. Monitor serum sodium. Patient getting normal saline. Rest as mentioned above. 05/02: Bicarb improved to 22 after bicarb infusion drip.Will change IV fluid to half-normal saline. 05/03: Bicarb improved to 24, baseline. Discontinue IV fluid. 3. Diabetes mellitus type 2: Patient has insulin pump. Instruction given to nursing staff to continue the insulin pump. 4. Gastroparesis: Patient during previous admission Reglan was held but currently not on Reglan on her home medications. 5. GERD ? On PPI 6. Coronary artery disease -Has history of CABG and subsequent stent placement. Patient is on guideline directed medical therapy 7. MGUS ? Patient is followed by oncology as outpatient 8. History of ulcerative colitis ? Status post ileostomy with resultant short gut syndrome. Patient on Lomotil and cholestyramine. Patient also on dicyclomine. 05/03: Stool for C. difficile negative. Stool for lactoferrin and occult blood negative. Stool for enteric pathogen negative. Prescription given for dicyclomine. Follow-up in GI as clinic. 9. Essential hypertension ? Patient antihypertensives held given her relatively low blood pressure 10. Chronic pain syndrome ? Patient is on buprenorphine 11. Depression ? Patient is on duloxetine 12. Psoriasis ? Patient had previously been treated with Humira taking off during the COVID pandemic 13. Hypomagnesemia ? Secondary to patient high output ileostomy corrected per protocol repeat magnesium and phosphorus ordered for a.m. 14. DVT prophylaxis - On heparin 530 unit subcutaneous twice daily adjusted to creatinine clearance. The management plan discussed with the patient's partner near the bedside. Living will/advanced directive/end of life care: Patient does have living will or advanced directive. After discussion of benefits/risks procedures involved with full code, DNR CC arrest and DNR CC, the patient opted for full code. Patient does want artificial life support including intubation, tube feed, ventilator and/chest compression, central venous catheter, vasopressor and DC shock if needed Discharge medication reconciliation done. Discharge follow-up instructions completed. Discharge process discussed with the patient and all questions were answered to patient's satisfaction. Follow with PCP in 1 to 2 weeks Total time spent, exact 35 minutes on discharge meds reconciliation, examination, coordination of care with nurses and ancillary staff, review of imaging and blood test and discussion with the patient on follow-up instructions. Medications at Discharge Home Medications aspirin 81 mg tablet,delayed release 81 mg PO DAILY heart health 04/08/21 duloxetine 30 mg capsule,delayed release 30 mg PO DAILY depression 10/06/21 Wheel Chair 11/15/21 blood sugar diagnostic (True Metrix Glucose Test Strip) 11/15/21 blood-glucose meter,continuous (Dexcom G6 Artificial Plastic Eye Maker) 11/15/21 pen needle, diabetic 32 gauge x 5/32 (BD Ultra-Fine Key Pen Needle) 11/15/21 nitroglycerin 0.4 mg sublingual tablet 0.4 mg sublingual Q5-15M PRN chest pain #25 tabs 11/20/21 ostomy supplies #1 ea 02/13/22 atorvastatin 80 mg tablet 80 mg PO QHS CHOLESTEROL LOWERING #90 tabs 08/04/22 blood-glucose transmitter (Dexcom G6 Transmitter device) #1 ea 08/07/22 metoprolol tartrate 50 mg tablet 50 mg PO .COMPLEX blood pressure 09/02/22 Handicap Placard #1 ea 09/16/22 isosorbide dinitrate 30 mg tablet 30 mg PO BID heart #60 tabs 12/11/22 blood-glucose sensor (Dexcom G6 Sensor device) #9 ea 12/14/22 insulin pump cart,automated,BT (Omnipod 5 G6 Pods (Gen 5) subcutaneous cartridge) #45 ea 01/13/23 Juanita Cohesive Seal 2 diameter #15 ea 01/18/23 Esenta Sting Free Adhesive Remover Wipe - #15 ea 01/18/23 Esenta Sting Free Skin Barrier Ina, 50 mL - #15 ea 01/18/23 Esteem + Convex One-Piece Drainable Pre-Cut Pouch w/ visiClose, Durahesive, 12 panel [place], 1 03/15 #15 ea 01/18/23 clopidogrel 75 mg tablet 75 mg PO DAILY heart health #90 tabs 02/04/23 blood sugar diagnostic (True Metrix Glucose Test Strip) #100 ea 02/08/23 buprenorphine 15 mcg/hour weekly transdermal patch 1 patch transdermal Q7D pain 02/10/23 melatonin 5 mg tablet 5 mg PO HS sleep 02/10/23 cyclobenzaprine 10 mg tablet 10 mg PO TID PRN muscle spasm #30 tabs 02/24/23 benzonatate 200 mg capsule 200 mg PO BID PRN cough #30 caps 03/10/23 trazodone 50 mg tablet 50 mg PO QHS sleep 03/18/23 cholestyramine (with sugar) 4 gram powder for susp in a packet 4 g PO BIDAC stool #60 ea 03/31/23 dicyclomine 10 mg capsule 20 mg (2 x 10 mg) PO BID PRN abdominal pain #30 caps 03/31/23 diphenoxylate-atropine 2.5 mg-0.025 mg tablet (Lomotil) 1 tab PO TID diarrhea #90 tabs 03/31/23 dapagliflozin propanediol 10 mg tablet (Farxiga) 10 mg PO DAILY diabetes #90 tabs 04/03/23 insulin lispro 200 unit/mL (3 mL) subcutaneous pen (Humalog KwikPen U-200 Insulin) 160 unit (0.8 mL) subcut DAILY diabetes #72 mL 04/21/23 metoprolol tartrate 25 mg tablet 25 mg PO .COMPLEX bp #180 tabs 04/29/23 pantoprazole 40 mg tablet,delayed release (Protonix) 40 mg PO BID GERD #60 tabs 04/29/23 pregabalin 75 mg capsule 75 mg PO BID #56 caps 04/29/23 albuterol sulfate 90 mcg/actuation aerosol inhaler 2 puff inhalation BID PRN SOB 05/01/23 duloxetine 60 mg capsule,delayed release 60 mg PO DAILY depression 05/01/23 lamotrigine 200 mg tablet 200 mg PO DAILY 05/01/23 dicyclomine 10 mg capsule 10 mg PO BID 30 days #60 caps 05/03/23 Physical Exam Narrative Seen and examined. Patient is well-hydrated. Ileostomy bag is still has liquid, yellowish stool. Physical exam General: Chronic fatigue, awake oriented x 3. HEENT: Atraumatic, PERRLA, EOMI, Normocephalic Oral: Oral mucosa moist. No Gingival or Mucosal Lesions/ Ulcerations Neck: Supple, No JVD, Negative Carotid Bruits Chest wall/Lungs: Air entry diminished in bilateral lung bases. No crepitation/rhonchi Cardiovascular: Regular rate, Regular Rhythm, Normal S1, Normal S2, No M/G/R Abdomen: Bowel Sounds Present, Soft, Non Tender, nondistended. Left-sided ileostomy with liquid/greenish yellow-colored feces : Oliguria. No renal angle tenderness. No suprapubic tenderness. Extremities: No edema, Capillary Refill Less than 3 Seconds Skin: No rashes, No breakdown Musculoskeletal: No Tenderness to Palpation of Joints or Extremities ROM restricted at left hip joint. Neurological: Cranial nerves II-XII grossly intact, DTR 2+/4. No acute focal neurological deficit. Psych/Mental Status: Flat affect. Weight / BMI Weight Weight: 203 lb 14.841 oz Body Mass Index (BMI) 31.9 ABG / Lab / Microbiology Data 05/02/23 05:10 05/03/23 06:50 Laboratory: Laboratory Results - last 24 hr 05/03/23 06:50: Sodium 141, Potassium 4.5, Chloride 117 H, Carbon Dioxide 24.0, BUN 41 H, Creatinine 2.32 H, Estim Creat Clear Calc 28.60, Est GFR (MDRD) Af Amer 27 L, Est GFR (MDRD) Non-Af 22 L, BUN/Creatinine Ratio 17.7, Glucose 133 H, Calcium 9.1, Phosphorus 3.0, Albumin 2.4 L Microbiology: Microbiology 05/01/23 14:35 Stool Stool Lactoferrin - Final 05/01/23 14:35 Stool Enteric Bacteriology - Final 05/01/23 14:35 Stool Clostridioides difficile (PCR) - Final 05/01/23 14:35 Stool Stool Occult Blood (MAYTE) - Final Meaningful Use Info Meaningful Use Diagnoses (Choose all that apply): None applicable Discharge Plan Admission Admit Date/Time: 05/01/23 11:29 Primary Reason for Your Visit: RALPH due to hypovolemia, short-bowel syndrome, high output ileostomy Attending Provider: Castillo Ferris Primary Care Provider: Mala Mcgrath Consulting Providers: Eloy Guan Instructions Additional Instructions / Restrictions: Advised 2 L IV fluid Ringer lactate 2 times a week. Discussed with [facility] [place] [facility]. She gets IV fluid for high output ileostomy through [facility]. EF 65% as per echo December 2022 Discharge Orders/Prescriptions Prescriptions: New dicyclomine 10 mg Capsule 10 mg PO BID 30 Days Qty: 60 0RF Continued duloxetine 30 mg capsule,delayed release(DR/EC) 30 mg PO DAILY Patient Comments: pt takes , 30 mg cap & 60 mg cap to equal 90 mg cap nitroglycerin 0.4 mg tablet, sublingual 0.4 mg sublingual Q5-15M PRN (Reason: chest pain) Qty: 25 6RF Rx Instructions: do not exceed 3 doses per episode buprenorphine 15 mcg/hour patch weekly 1 patch transdermal Q7D Patient Comments: changes on wednesday melatonin 5 mg tablet 5 mg PO HS (DME) Handicap Placard See Rx Instructions .ROUTE .MEDSUPPLY Qty: 1 0RF Rx Instructions: As directed, length of time 3 years (DME) True Metrix Glucose Test Strip Strip See Rx Instructions .Route Qty: 100 5RF Rx Instructions: TID cyclobenzaprine 10 mg tablet 10 mg PO TID PRN (Reason: muscle spasm) Qty: 30 0RF benzonatate 200 mg capsule 200 mg PO BID PRN (Reason: cough) Qty: 30 0RF dicyclomine 10 mg capsule 20 mg PO BID PRN (Reason: abdominal pain) Qty: 30 2RF diphenoxylate-atropine [Lomotil] 2.5-0.025 mg tablet 1 tab PO TID Qty: 90 2RF cholestyramine (with sugar) 4 gram powder in packet 4 g PO BIDAC Qty: 60 11RF aspirin 81 mg Tablet,Delayed Release (Dr/Ec) 81 mg PO DAILY Hold Instructions: Resume on 06/10/22. (DME) True Metrix Glucose Test Strip Strip See Rx Instructions .Route Rx Instructions: 3 times per day No longer (DME) Dexcom G6 Artificial Plastic Eye Maker Misc See Rx Instructions .ROUTE .MEDSUPPLY Rx Instructions: As directed (DME) pen needle, diabetic [BD Ultra-Fine Key Pen Needle] 32 gauge x 5/32 needle See Rx Instructions .ROUTE .MEDSUPPLY Rx Instructions: takes 5 injection/day (DME) Wheel Chair See Rx Instructions Rx Instructions: As directed metoprolol tartrate 50 mg tablet 50 mg PO .COMPLEX Rx Instructions: 50 mg orally twice a day with a 25 mg tablet twice a day to = 75 mg twice a day; trazodone 50 mg tablet 50 mg PO QHS duloxetine 60 mg capsule,delayed release(DR/EC) 60 mg PO DAILY Patient Comments: pt takes , 30 mg cap & 60 mg cap to equal 90 mg cap lamotrigine 200 mg tablet 200 mg PO DAILY albuterol sulfate 90 mcg/actuation HFA aerosol inhaler 2 puff INHALATION BID PRN (Reason: SOB) ([facility]) ostomy supplies See Rx Instructions .Route .MEDSUPPLY Qty: 1 0RF Rx Instructions: Pouches Barrier rings Adhesive remover Skin Prep Barrier powder atorvastatin 80 mg tablet 80 mg PO QHS Qty: 90 3RF Patient Comments: cholesterol ([facility]) Dexcom G6 Transmitter Device See Rx Instructions .ROUTE .MEDSUPPLY Qty: 1 3RF Rx Instructions: 1 transmitter every 90 days isosorbide dinitrate 30 mg tablet 30 mg PO BID Qty: 60 11RF ([facility]) Dexcom G6 Sensor Device See Rx Instructions .ROUTE .MEDSUPPLY Qty: 9 1RF Rx Instructions: 1 sensor every 10 days ([facility]) Omnipod 5 G6 Pods (Gen 5) Cartridge See Rx Instructions .Route Qty: 45 1RF Rx Instructions: 1 pod q 48 hours ([facility]) Juanita Cohesive Seal 2 diameter See Rx Instructions .Route .MEDSUPPLY Qty: 15 7RF Rx Instructions: As directed ([facility]) Esenta Sting Free Adhesive Remover Wipe - See Rx Instructions .Route .MEDSUPPLY Qty: 15 7RF Rx Instructions: As directed ([facility]) Esenta Sting Free Skin Barrier Ina, 50 mL - See Rx Instructions .Route .MEDSUPPLY Qty: 15 7RF Rx Instructions: As directed ([facility]) Esteem + Convex One-Piece Drainable Pre-Cut Pouch w/ visiClose, Durahesive, 12 panel Opaque, 1 1/8 See Rx Instructions .Route .MEDSUPPLY Qty: 15 7RF Rx Instructions: As directed clopidogrel 75 mg tablet 75 mg PO DAILY Qty: 90 3RF Hold Instructions: Resume on 06/10/22. Rx Instructions: TAKE 1 TABLET BY MOUTH EVERY DAY dapagliflozin propanediol [Farxiga] 10 mg tablet 10 mg PO DAILY Qty: 90 1RF Humalog KwikPen Insulin 200 unit/mL (3 mL) insulin pen 160 unit subcut DAILY Qty: 72 3RF Rx Instructions: 2.05 units/hr from 12 AM to 6:30 AM 2.15 units/hr from 6:30 AM to 12 AM metoprolol tartrate 25 mg tablet 25 mg PO .COMPLEX Qty: 180 3RF Rx Instructions: 25 mg orally take with a 50 mg tablet twice a day to = 75 mg twice a day; pantoprazole [Protonix] 40 mg tablet,delayed release (DR/EC) 40 mg PO BID Qty: 60 11RF pregabalin 75 mg capsule 75 mg PO BID Qty: 56 0RF Referrals / Follow Up: Mala Mcgrath MD [Primary Care Provider] - Within 1 Week Claudia Rico MD [Med Staff - Consulting] - Within 1 Month Aj Andino DO [Med Staff - Active Staff] - Within 1 Month Disposition Disposition (needs filled in before D/C Order can be placed): Home, Self Care Charges/Coding Visit Charges Inpatient E&M: 99544 Disch Hosp >30min
[2023-05-03] MEDS: Aspirin E.C. 81 MG Tablet PO (09:31)
[2023-05-03] MEDS: DULoxetine Hcl 30 MG Capsule PO (09:31)
[2023-05-03] MEDS: DULoxetine Hcl 60 MG Capsule PO (09:32)
[2023-05-03] MEDS: Heparin Injection (Vial) 5,000 UNIT/ML VIAL 5000 UNIT SC (09:32)
[2023-05-03 09:33] VITALS: BP 131/51; PULSE 65
[2023-05-03] MEDS: lamoTRIgine 100 MG Tablet 200 MG PO (09:33)
[2023-05-03] MEDS: Metoprolol Tartrate 25 MG Tablet PO (09:33)
[2023-05-03] MEDS: Isosorbide DN 30 MG Tablet PO (09:33)
[2023-05-03 09:34] VITALS: BP 131/51; PULSE 65
[2023-05-03] MEDS: Metoprolol Tartrate 50 MG Tablet PO (09:34)
[2023-05-03] MEDS: Clopidogrel Bisulfate 75 MG Tablet PO (09:34)
[2023-05-03] MEDS: Cholestyramine/Sucrose 4 GM/PACKET PO (09:34)
[2023-05-03] MEDS: Pantoprazole Sodium 40 MG Tablet PO (09:34)
[2023-05-03] MEDS: Acetaminophen 325 MG Tablet 650 MG PO (09:45)
--- NOTE | 2023-05-03 11:10 | PHA.DC_ITS ---
Pharmacy MD Med Reconciliation Pharmacy Service has performed discharge medication reconciliation for this patient. The patient's discharge medication list was reviewed for discrepancies and discrepancies were resolved. Medications at Discharge Home Medications aspirin 81 mg tablet,delayed release 81 mg PO DAILY heart health 04/08/21 duloxetine 30 mg capsule,delayed release 30 mg PO DAILY depression 10/06/21 Wheel Chair 11/15/21 blood sugar diagnostic (True Metrix Glucose Test Strip) 11/15/21 blood-glucose meter,continuous (Dexcom G6 Jde Developer) 11/15/21 pen needle, diabetic 32 gauge x 5/32 (BD Ultra-Fine Key Pen Needle) 11/15/21 nitroglycerin 0.4 mg sublingual tablet 0.4 mg sublingual Q5-15M PRN chest pain #25 tabs 11/20/21 ostomy supplies #1 ea 02/13/22 atorvastatin 80 mg tablet 80 mg PO QHS CHOLESTEROL LOWERING #90 tabs 08/04/22 blood-glucose transmitter (Dexcom G6 Transmitter device) #1 ea 08/07/22 metoprolol tartrate 50 mg tablet 50 mg PO .COMPLEX blood pressure 09/02/22 Handicap Placard #1 ea 09/16/22 isosorbide dinitrate 30 mg tablet 30 mg PO BID heart #60 tabs 12/11/22 blood-glucose sensor (Dexcom G6 Sensor device) #9 ea 12/14/22 insulin pump cart,automated,BT (Omnipod 5 G6 Pods (Gen 5) subcutaneous cartridge) #45 ea 01/13/23 Juanita Cohesive Seal 2 diameter #15 ea 01/18/23 Esenta Sting Free Adhesive Remover Wipe - #15 ea 01/18/23 Esenta Sting Free Skin Barrier [place], 50 mL - #15 ea 01/18/23 Esteem + Convex One-Piece Drainable Pre-Cut Pouch w/ visiClose, Durahesive, 12 panel Opaque, 1 03/15 #15 ea 01/18/23 clopidogrel 75 mg tablet 75 mg PO DAILY heart health #90 tabs 02/04/23 blood sugar diagnostic (True Metrix Glucose Test Strip) #100 ea 02/08/23 buprenorphine 15 mcg/hour weekly transdermal patch 1 patch transdermal Q7D pain 02/10/23 melatonin 5 mg tablet 5 mg PO HS sleep 02/10/23 cyclobenzaprine 10 mg tablet 10 mg PO TID PRN muscle spasm #30 tabs 02/24/23 benzonatate 200 mg capsule 200 mg PO BID PRN cough #30 caps 03/10/23 trazodone 50 mg tablet 50 mg PO QHS sleep 03/18/23 cholestyramine (with sugar) 4 gram powder for susp in a packet 4 g PO BIDAC stool #60 ea 03/31/23 dicyclomine 10 mg capsule 20 mg (2 x 10 mg) PO BID PRN abdominal pain #30 caps 03/31/23 diphenoxylate-atropine 2.5 mg-0.025 mg tablet (Lomotil) 1 tab PO TID diarrhea #90 tabs 03/31/23 dapagliflozin propanediol 10 mg tablet (Farxiga) 10 mg PO DAILY diabetes #90 tabs 04/03/23 insulin lispro 200 unit/mL (3 mL) subcutaneous pen (Humalog KwikPen U-200 Insulin) 160 unit (0.8 mL) subcut DAILY diabetes #72 mL 04/21/23 metoprolol tartrate 25 mg tablet 25 mg PO .COMPLEX bp #180 tabs 04/29/23 pantoprazole 40 mg tablet,delayed release (Protonix) 40 mg PO BID GERD #60 tabs 04/29/23 pregabalin 75 mg capsule 75 mg PO BID #56 caps 04/29/23 albuterol sulfate 90 mcg/actuation aerosol inhaler 2 puff inhalation BID PRN SOB 05/01/23 duloxetine 60 mg capsule,delayed release 60 mg PO DAILY depression 05/01/23 lamotrigine 200 mg tablet 200 mg PO DAILY 05/01/23 dicyclomine 10 mg capsule 10 mg PO BID 30 days #60 caps 05/03/23
--- NOTE | 2023-05-03 11:15 | CASEMGMT ---
RN REDD Face to Face with patient for initial transition planning/care coordination assessment. RN CM introduced self and role at [facility]. Patient lying in bed, alert and oriented. Patient willing to participate in assessment and is able to answer all questions appropriately. Care providers, pharmacy, and demographics verified. Patient wishes to discharge home, denies need for home health at this time. Patient states she has no further needs or concerns at this time. CM to follow for discharge planning needs that may arise. PCP: [facility] Specialists: Jacky, last puller; Adriana, pain; , slubber runner; Friend, GI; Keven, adult basic education teacher Preferred Pharmacy: [facility] Insurance: [employer] Prescription Benefit: yes Living Will/HPOA: yes, life partner Azucena Borrero LNOK: Life Partner Azucena Borrero Living Arrangements: Patient lives alone in a first floor apartment with no steps to enter. Patient is independent at home. Transportation: self, Azucena DME/HHC: Patient has shower chair, cane, rollator, wheelchair, grab bars, glucometer, bipap, nebuilzer, and pulse ox at home. Patient has had [facility] in the past. Patient has been to [facility]. Patient is active with Waiver program with CM as Lauren Vann Patient has been attending weekly hydration in outpatient infusion clinic. Patient has been attending follow=up appts as scheduled and taking meds as prescribed. Disposition Plan: Patient to discharge home with family support and follow-up plans in place. Amie IVAN, RN, CM
[2023-05-03 11:54] VITALS: BP 115/52; PULSE 67; RESP 16; TEMP 36.3; O2SAT 95
[2023-05-03] MEDS: traMADol 50 MG Tablet PO (11:57)
--- NOTE | 2023-05-03 12:58 | PCM.PN.REN ---
Subjective Subjective No new complaints. Objective Data Objective Data Vital Signs: Vital Signs Temp Pulse Resp BP Pulse Ox O2 Del Method 97.3 F L 67 16 115/52 L 95 Room Air 05/03/23 11:54 05/03/23 11:54 05/03/23 11:54 05/03/23 11:54 05/03/23 11:54 05/03/23 11:54 Oxygen Delivery Method Room Air Weight: 92.5 kg Body Mass Index (BMI) 31.9 Intake & Output: Intake and Output for Last 24 Hours 05/01/23 05/02/23 05/03/23 23:59 23:59 23:59 Intake Total 3004.17 / 3004.17 3806.25 / 3806.25 1000 / 1000 Output Total 850 / 1350 1250 / 1250 350 / 350 Balance 2154.17 / 1654.17 2556.25 / 2556.25 650 / 650 Lab / Micro Data 05/02/23 05:10 05/03/23 06:50 Labs: Laboratory Results - last 24 hr 05/03/23 06:50: Sodium 141, Potassium 4.5, Chloride 117 H, Carbon Dioxide 24.0, BUN 41 H, Creatinine 2.32 H, Estim Creat Clear Calc 28.60, Est GFR (MDRD) Af Amer 27 L, Est GFR (MDRD) Non-Af 22 L, BUN/Creatinine Ratio 17.7, Glucose 133 H, Calcium 9.1, Phosphorus 3.0, Albumin 2.4 L Micro: Microbiology 05/01/23 14:35 Urine, Clean Catch Urine Culture - Final Mixed Gram Pos & Gram Neg Org 05/01/23 14:35 Stool Stool Lactoferrin - Final 05/01/23 14:35 Stool Enteric Bacteriology - Final 05/01/23 14:35 Stool Clostridioides difficile (PCR) - Final 05/01/23 14:35 Stool Stool Occult Blood (MAYTE) - Final Rhythm Strip Rhythm Strip: Sinus Rhythm Rate: 74 Ectopy: None Physical Exam Narrative General: Alert and oriented x3, NAD. HEENT: Normocephalic, atraumatic. Mucous membrane dry. Neck: Supple, no JVD. Trachea is midline. No thyromegaly or lymphadenopathy. Cardiovascular: Normal S1, S2. No rubs, murmurs, or gallops. Respiratory: Lungs are clear to auscultation bilaterally. No wheezing, rhonchi, or rales. Abdomen: Normal bowel sounds, soft, nontender, no guarding or rebound, no organomegaly. Extremities: No clubbing, cyanosis, or edema. Musculoskeletal: Full passive range of motion, no joint swelling. Assessment & Plan Assessment/Plan (1) Acute kidney injury: (2) Acute hyperkalemia: (3) Acute metabolic acidosis: PLAN: Plan Impression/Plan: The patient is a 62-year-old woman with past history of ulcerative colitis status post total colectomy and end ileostomy complicated by short-bowel syndrome, type 2 diabetes mellitus, hypertension, hepatic steatosis, GERD, and depression. The patient presents on 05/01/2023 with recurrent high ostomy output. Nephrology is following for RALPH on CKD. Acute renal failure CKD stage IIIb/IV Hyperkalemia Acidosis Baseline creatinine has been between 1.8-2.0. She has another episode of RALPH in the setting of volume depletion. Improving, creatinine is down to 2.3. Potassium and bicarbonate have normalized. Volume status looks really okay. Her main issue is short gut syndrome, massive stomal output, she is usually unable to keep up when she has significant output and comes in with dehydration. She is currently getting IV fluids once a week and infusion center as outpatient. Discussed with hospitalist. For now she can get infusions twice a week. If her output is better, can cut back.
== END 2023-05-03 13:50 | disposition home or self-care (01) | DRG 683 ==
LOC: ED 11:31 → PCU 12:01
PROVIDERS: Internal Medicine Nephrology; Admitting Provider Internal Medicine; Emergency Provider Emergency Medicine; PCP Internal Medicine; Visit Provider Internal Medicine
DX: N17.9 Acute kidney failure, unspecified (principal); K91.2 Postsurgical malabsorption, not elsewhere classified; E87.21 Acute metabolic acidosis; I13.0 Hypertensive heart and chronic kidney disease with heart failure and stage 1 through stage 4 chronic kidney disease, or unspecified chronic kidney disease; E87.1 Hypo-osmolality and hyponatremia; I50.32 Chronic diastolic (congestive) heart failure; E11.22 Type 2 diabetes mellitus with diabetic chronic kidney disease; K21.9 Gastro-esophageal reflux disease without esophagitis; D47.2 Monoclonal gammopathy; J44.9 Chronic obstructive pulmonary disease, unspecified; N18.4 Chronic kidney disease, stage 4 (severe); E11.42 Type 2 diabetes mellitus with diabetic polyneuropathy; E11.43 Type 2 diabetes mellitus with diabetic autonomic (poly)neuropathy; Z79.4 Long term (current) use of insulin; Z93.2 Ileostomy status; F32.A Depression, unspecified; E78.5 Hyperlipidemia, unspecified; K31.84 Gastroparesis; I25.10 Atherosclerotic heart disease of native coronary artery without angina pectoris; E87.5 Hyperkalemia; F41.9 Anxiety disorder, unspecified; L40.9 Psoriasis, unspecified; G47.33 Obstructive sleep apnea (adult) (pediatric); E66.9 Obesity, unspecified; G89.4 Chronic pain syndrome; Z95.5 Presence of coronary angioplasty implant and graft; Z79.899 Other long term (current) drug therapy; Z79.82 Long term (current) use of aspirin; Z79.51 Long term (current) use of inhaled steroids; Z79.02 Long term (current) use of antithrombotics/antiplatelets; Z87.891 Personal history of nicotine dependence; Z86.16 Personal history of COVID-19; Z95.1 Presence of aortocoronary bypass graft; Z68.30 Body mass index [BMI] 30.0-30.9, adult; Z96.41 Presence of insulin pump (external) (internal)
CPT/HCPCS: 36415; 80048; 80053; 80069; 81001; 82274; 82436; 82570; 82962; 83630; 83930; 83935; 84132; 84133; 84156; 84300; 84443; 85025; 87086; 87088; 87493; 87506; 93005; 94640; 94668; 97162; 97165; 99285; J7030; J7120; A4216; J0612; J2405

== ENCOUNTER 2023-05-07 10:18 | Outpatient (CLI) | payer MEDICARE, MEDICAID, SELFPAY ==
[2023-02-18 12:34] VITALS: BMI 30.9
[2023-05-07 10:28] VITALS: BP 125/56; PULSE 71; RESP 16; TEMP 35.9; O2SAT 92; BMI 31.3
[2023-05-07] MEDS: 0.9% Normal Saline (1000mL) 1,000 ML 999 ML IV ×2 (10:49→11:48)
[2023-05-07] MEDS: 0.9% NaCl Peripheral Flush Adult/Peds IV (10:49)
[2023-05-07 13:09] VITALS: BP 144/57; PULSE 63; RESP 16; TEMP 36.2; O2SAT 97
== END 2023-05-07 10:19 | disposition home or self-care (01) ==
LOC: MEDOUTP 10:18
PROVIDERS: PCP Internal Medicine; Referring Provider Internal Medicine Gastroenterology; Visit Provider Internal Medicine Gastroenterology
DX: E86.0 Dehydration (principal); R19.8 Other specified symptoms and signs involving the digestive system and abdomen
CPT/HCPCS: 96360; 96361; J7030; A4216

== ENCOUNTER → 2023-05-10 | Outpatient (CLI) | payer MEDICARE, MEDICAID, SELFPAY ==
[2023-02-18 12:34] VITALS: BMI 30.9
--- OUTSIDE RECORDS SUMMARY | 2023-05-10 11:29 | XMS RPT_ITS | CCD ---
Author Name Unknown Address [address] [place] [address] Organization [facility] Care Team Providers Care Detective Sergeant Name Role Phone GERBER, DEAN C Unavailable [...] PCP Unavailable Unavailable Oleghe, Efewongbe B Unavailable [phone] Unavailable Unavailable OLEGHE, EFEWONGBE B Primary Care Unavailable EDWIGE JOY Attending Unavailable FRIEND, JACQUELINE Zurita Referring Unavailable Allergies Allergy Classification Reported Allergen(s) Allergy Type Date of Onset Reaction(s) Facility Anticholinergics (1 source) Dicyclomine; Translations: [dicyclomine] [facility] [place] [address] Work Phone: liraglutide (1 source) liraglutide; Translations: [Victoza SOPN] [facility] Work Phone: metFORMIN (1 source) metFORMIN; Translations: [metformin] Drug Allergy [facility] [place] [address] Work Phone: Nitroimidazoles (antibiotic) (1 source) metroNIDAZOLE; Translations: [Flagyl] Drug Allergy [place] [address] Work Phone: Penicillins (antibiotic) (1 source) Penicillins; Translations: [Penicillins] Drug Allergy [place] [address] Work Phone: Sulfonamides (antibiotic) (1 source) Sulfonamides (Antibiotic); Translations: [Sulfa Drugs] Drug Allergy [place] [address] Work Phone: Unclassified (1 source) Cinnamon Flavor OIL; Translations: [Cinnamon Flavor OIL] Allergy to drug (finding) [place] [address] Work Phone: (2 sources) cinnamon preparation; Translations: [CINNAMON] Drug Allergy 9 [facility] Repository (2 sources) codeine; Translations: [CODEINE] Drug Allergy 9 [facility] Repository (4 sources) dicyclomine; Translations: [DICYCLOMINE] Drug Allergy 4 [facility] Repository (2 sources) influenza virus vaccine; Translations: [FLU VACC [id number] 65YR UP(PF)] Drug Allergy 6 [facility] Repository (2 sources) liraglutide; Translations: [LIRAGLUTIDE] Drug Allergy 7 [facility] Repository (2 sources) metFORMIN; Translations: [METFORMIN HCL] Drug Allergy 4 [facility] Repository (2 sources) metroNIDAZOLE; Translations: [METRONIDAZOLE HCL] Drug Allergy 4 [facility] Repository (4 sources) Penicillins; Translations: [PENICILLINS] Propensity to adverse reactions to drug (disorder) 9 [facility] Repository (2 sources) sulfaSALAzine; Translations: [SULFASALAZINE] Drug Allergy 9 [facility] Repository (2 sources) Sulfonamides (Antibiotic); Translations: [SULFA (SULFONAMIDE ANTIBIOTICS)] Propensity to adverse reactions to drug (disorder) 9 [facility] Repository (2 sources) INFLUENZA VIRUS VACCINES; Translations: [INFLUENZA VIRUS VACCINES] Propensity to adverse reactions to drug (disorder) [facility]) liraglutide Drug Allergy [facility] 120 Work Phone: (2 sources) metFORMIN Drug [facility]ergy [facility] Work Phone: (2 sources) metroNIDAZOLE Drug Allergy [facility] 120 Work Phone: (2 sources) Sulfonamides (Antibiotic) Allergy to drug (finding) [facility] 120 Work Phone: (1 source) Hmg-Coa Reductase Inhibitors (Statins); Translations: [[id number]-INI REDUCTASE INHIBITORS] Propensity to adverse reactions to drug (disorder) 4 [facility] Repository (1 source) ranolazine; Translations: [RANOLAZINE] Drug Allergy 9 [facility] Repository Medications Completed/Discontinued Medications Medication [...] [Coronary atherosclerosis of unspecified type of vessel, suquamish or graft] Chronic Coronary atherosclerosis and other [...] / Z87.891(ICD-10) Onset: 10-21-2016 Unclassified (1 source) 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 / Z79.82(ICD-10) Onset: [...] Mass Index) 30.54 kg/m2 Brennan Duque [facility] 120 Work Phone: 12-20-2019 11:35-0400 Body Temperature 98.2 [degF] Brennan Duque [facility] 120 Work Phone: 12-20-2019 11:35-0400 Body weight 88.45 kg Brennan Duque [facility] [place] 120 Work Phone: 12-20-2019 11:35-0400 BP Diastolic 70 mm[Hg] [facility] 120 Work Phone: 12-20-2019 11:35-0400 BP Systolic 120 mm[Hg] Brennan Duque [facility] 120 Work Phone: 12-20-2019 11:35-0400 BSA (Body Surface Area) 2 m2 Brennan Duque [facility] 120 Work Phone: 12-20-2019 11:35-0400 Height 170.18 cm Brennan Dquue [facility] 120 Work Phone: 11-30-2019 11:55-0400 BMI (Body Mass Index) 30.54 kg/m2 Brennan Duque [facility] 120 Work Phone: 11-30-2019 11:55-0400 Body weight 88.45 kg Brennan Duque [facility] 120 Work Phone: 11-30-2019 11:55-0400 BP Diastolic 60 mm[Hg] Brennan Duque [facility] 120 Work Phone: 11-30-2019 11:55-0400 BP Systolic 122 mm[Hg] Brennan Duque [facility] 120 Work Phone: 11-30-2019 11:55-0400 BSA (Body Surface Area) 2 m2 Brennan Duque [facility] 120 Work Phone: 11-30-2019 11:55-0400 Height 170.18 cm Brennan Duque [facility] 120 Work Phone: 11-30-2019 11:55-0400 Pulse (Heart Rate) 66 /min Brennan Duque [facility] 120 Work Phone: 11-30-2019 11:55-0400 Pulse Oximetry 96 % Brennan Duque [facility] 120 Work Phone: Encounters Encounter Date Encounter Type Care Provider Facility Start: 02-18-2022 End: 02-18-2022 ambulatory MALA MADRIGAL Facility:[facility] Start: 10-23-2020 Rx Renewal Mala Zurita Ol eghe Work Phone: [facility] [facility] Work Phone: Start: 12-20-2019 Patient encounter procedure Brennan Duque [facility] 120 Work Phone: Start: 11-30-2019 Patient encounter procedure Brennan Duque [facility]-[place] 120 Work Phone: Start: 07-06-2017 Ambulatory DEAN May GERBER [facility] Start: 10-21-2016 End: 10-21-2016 Ambulatory Huma Ocasio Facility:[facility] Start: 10-08-2016 Ambulatory Mena Brown Fac ility:[facility] Start: 09-03-[address] [facility] Procedures Date Procedure Procedure Detail [...] Duque, Status: Pen, Time: 10:00 AM [facility] 120 Work Phone: Payers Date Payer Category Payer Unknown [id number] Unknown [id number] Unknown Social History Date Type Detail Facility Former [facility] Work Phone: NEGATED: Highlighted [...] Type Note Facility 02-18-2022 Note HNO ID: [id number] Author: Edwige Joy RD Service: ? Author [...] in the bag) Lunch - meals of [employer]/meal delivery service, meat balls and spaghetti, chicken, [...] sand which with salami, ham, cheese sometimes (australian, south korean) Beverages - diet coke drinks all day [...] [Metronidazole Hcl], Fluzone High-Dose (Pf) [Flu Vacc [id number] 65yr Up(Pf)], Glucophage [Metformin Hcl], Influenza Virus Vaccines, Penicillins, Ranexa [Ranolazine], Sulfa (Sulfonamide Antibiotics), Victoza [Liraglutide], and Uauhwts-Pfh-Cqn Reductase Inhibitors Medications: Current Outpatient Medications Medication [...] BY MOUTH EV (more content not included)... [facility] Summary Purpose Family History No Family [...] [facility] DATE CREATED AUTHOR AUTHOR'S ORGANIZ ATION 09/01/2017 [facility] DATE CREATED AUTHOR AUTHOR'S ORGANIZ ATION 09/01/2017 [facility] DATE CREATED AUTHOR AUTHOR'S ORGANIZ ATION 06/18/2020 [facility] DATE CREATED AUTHOR AUTHOR'S ORGANIZ ATION 02/14/2021 [facility] DATE CREATED AUTHOR AUTHOR'S ORGANIZ ATION 02/25/2022 [facility] FOR RECORDS PERTAINING TO PATIENTS WHO [...] BE BASED ON THE PRIMARY CLINICAL RECORDS. [facility] [employer] [facility]. provides no warranty or guarantee of the accuracy or completeness of information in this document.
[2023-05-10 13:06] LABS: Anion Gap 7 (5-15); BUN 30 mg/dL (7-18); BUN/Creat Ratio 16.4 RATIO (10-20); Chloride 109 mmol/L (98-107); Creatinine, Serum 1.83 mg/dL (0.55-1.02); EST Glomerular Filtration Rate 30 mL/min (>60); Est Glom Filt Rate - Afr Amer 36 mL/min (>60); Glucose 174 mg/dL (74-106); Potassium 4.3 mmol/L (3.5-5.1); Sodium Level 141 mmol/L (136-145)
== END | disposition home or self-care (01) ==
LOC: BIMLAB 11:14
PROVIDERS: PCP Internal Medicine; Visit Provider Internal Medicine
DX: N17.9 Acute kidney failure, unspecified (principal); Z93.2 Ileostomy status; N18.9 Chronic kidney disease, unspecified; R19.8 Other specified symptoms and signs involving the digestive system and abdomen; K91.2 Postsurgical malabsorption, not elsewhere classified
CPT/HCPCS: 36415; 80048

== ENCOUNTER 2023-05-11 11:34 | Outpatient (CLI) | payer MEDICARE, MEDICAID, SELFPAY ==
[2023-02-18 12:34] VITALS: BMI 30.9
[2023-05-11] MEDS: 0.9% NaCl Peripheral Flush Adult/Peds IV (11:52)
--- OUTSIDE RECORDS SUMMARY | 2023-05-11 11:56 | XMS RPT_ITS | CCD ---
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 [place] [address] Work Phone: liraglutide (1 source) liraglutide; Translations: [Victoza SOPN] Drug Allergy [facility] Work Phone: metFORMIN (1 source) metFORMIN; Translations: [metformin] Drug Allergy [facility] [place] [address] Work Phone: Nitroimidazoles (antibiotic) (1 source) metroNIDAZOLE; Translations: [Flagyl] Drug Allergy [place] [address] Work Phone: Penicillins (antibiotic) (1 source) Penicillins; Translations: [Penicillins] Drug Allergy [place] [address] Work Phone: Sulfonamides (antibiotic) (1 source) Sulfonamides (Antibiotic); Translations: [Sulfa Drugs] Drug Allergy [place] [address] Work Phone: Unclassified (1 source) Cinnamon Flavor OIL; Translations: [Cinnamon Flavor OIL] Allergy to drug (finding) [place] [address] Work Phone: (2 sources) cinnamon preparation; Translations: [CINNAMON] Drug Allergy 9 [facility] Repository (2 sources) codeine; Translations: [CODEINE] Drug Allergy 9 [facility] Repository (4 sources) dicyclomine; Translations: [DICYCLOMINE] Drug Allergy 4 [facility] Repository (2 sources) influenza virus vaccine; Translations: [FLU VACC [id number] 65YR UP(PF)] Drug Allergy 6 [facility] Repository (2 sources) liraglutide; Translations: [LIRAGLUTIDE] Drug Allergy 7 [facility] Repository (2 sources) metFORMIN; Translations: [METFORMIN HCL] Drug Allergy 4 [facility] Repository (2 sources) metroNIDAZOLE; Translations: [METRONIDAZOLE HCL] Drug Allergy 4 [facility] Repository (4 sources) Penicillins; Translations: [PENICILLINS] Propensity to adverse reactions to drug (disorder) 9 [facility] Repository (2 sources) sulfaSALAzine; Translations: [SULFASALAZINE] Drug Allergy 9 [facility] Repository (2 sources) Sulfonamides (Antibiotic); Translations: [SULFA (SULFONAMIDE ANTIBIOTICS)] Propensity to adverse reactions to drug (disorder) 9 [facility] Repository (2 sources) INFLUENZA VIRUS VACCINES; Translations: [INFLUENZA VIRUS VACCINES] Propensity to adverse reactions to drug (disorder) [facility] ([facility] sources) liraglutide Drug Allergy [facility] 120 Work Phone: (2 sources) metFORMIN Drug [facility] Work Phone: (2 sources) metroNIDAZOLE Drug Allergy [facility] 120 Work Phone: (2 sources) Sulfonamides (Antibiotic) Allergy to drug (finding) [facility] 120 Work Phone: (1 source) Hmg-Coa Reductase Inhibitors (Statins); Translations: [[id number] REDUCTASE INHIBITORS] Propensity to adverse reactions to drug (disorder) 4 [facility] Repository (1 source) ranolazine; Translations: [RANOLAZINE] Drug Allergy 9 [facility] Repository Medications Completed/Discontinued Medications Medication [...] / Z87.891(ICD-10) Onset: 10-21-2016 Unclassified (1 source) 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 120 Work Phone: 12-20-2019 11:35-0400 Body Temperature 98.2 [degF] Brennan Duque [facility] 120 Work Phone: 12-20-2019 11:35-0400 Body weight 88.[address] [facility] [place] 120 Work Phone: 12-20-2019 11:35-0400 BP Diastolic 70 mm[Hg] [facility] 120 Work Phone: 12-20-2019 11:35-0400 BP Systolic 120 mm[Hg] Brennan Duque [facility] 120 Work Phone: 12-20-2019 11:35-0400 BSA (Body Surface Area) [address] [facility] 120 Work Phone: 12-20-2019 11:35-0400 Height 170.[address] [facility] 120 Work Phone: 11-30-2019 11:55-0400 BMI (Body Mass Index) 30.54 kg/m2 Brennan Duque [facility] 120 Work Phone: 11-30-2019 11:55-0400 Body weight 88.[address] [facility] 120 Work Phone: 11-30-2019 11:55-0400 BP Diastolic 60 mm[Hg] Brennan Duque [facility] 120 Work Phone: 11-30-2019 11:55-0400 BP Systolic 122 mm[Hg] Brennan Duque [facility] 120 Work Phone: 11-30-2019 11:55-0400 BSA (Body Surface Area) [address] [facility] 120 Work Phone: 11-30-2019 11:55-0400 Height 170.[address] [facility] 120 Work Phone: 11-30-2019 11:55-0400 Pulse (Heart Rate) 66 /min Brennan Duque [facility] 120 Work Phone: 11-30-2019 11:55-0400 Pulse Oximetry 96 % Brennan Duque [facility] 120 Work Phone: Encounters Encounter Date Encounter Type Care Provider Facility Start: 02-18-2022 End: 02-18-2022 ambulatory MALA MADRIGAL Facility:[facility] Start: 10-23-2020 Rx Renewal Mala Zurita Ol eghe Work Phone: [facility] Work Phone: Start: 12-20-2019 Patient encounter procedure Brennan Duque [facility] 120 Work Phone: Start: 11-30-2019 Patient encounter procedure Brennan Duque [facility] 120 Work Phone: Start: 07-06-2017 Ambulatory DEAN May GERBER [facility] Start: 10-21-2016 End: 10-21-2016 Ambulatory Huma Ocasio Facility:[facility] Start: 10-08-2016 Ambulatory Mena Brown Fac ility:[facility] Start: 09-03-[address] [facility] Procedures Date Procedure Procedure Detail [...] Brennan Duque, Status: Pen, Time: 10:[address] [facility] 120 Work Phone: Payers Date Payer Category Payer Unknown [id number] Unknown [id number] Unknown Social History Date Type Detail Facility Former smoker Former [facility] Work Phone: NEGATED: Highlighted row - - [facility] 120 Work Phone: Medical Equipment Procedure [...] Type Note Facility 02-18-2022 Note HNO ID: [id number] Author: Edwige Joy RD Service: ? 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 [facility] Summary Purpose Family History No Family [...] DATE CREATED AUTHOR AUTHOR'S ORGANIZ ATION 08/31/2017 [facility] DATE CREATED AUTHOR AUTHOR'S ORGANIZ ATION 09/01/2017 [facility] DATE CREATED AUTHOR AUTHOR'S ORGANIZ ATION 09/01/2017 [facility] DATE CREATED AUTHOR AUTHOR'S ORGANIZ ATION 06/18/2020 [facility] DATE CREATED AUTHOR AUTHOR'S ORGANIZ ATION 02/14/2021 [facility] DATE CREATED AUTHOR AUTHOR'S ORGANIZ ATION 02/25/2022 [facility] FOR RECORDS PERTAINING TO PATIENTS WHO [...] BE BASED ON THE PRIMARY CLINICAL RECORDS. [facility] [employer] [facility]. provides no warranty or guarantee of the accuracy or completeness of information in this document.
[2023-05-11] MEDS: 0.9% Normal Saline (1000mL) 1,000 ML 999 ML IV ×2 (12:12→13:15)
[2023-05-11 12:13] VITALS: BP 126/66; PULSE 73; RESP 16; TEMP 36.5; O2SAT 96; BMI 31.8
[2023-05-11 14:38] VITALS: BP 151/53; PULSE 66; RESP 16; TEMP 36.3; O2SAT 96
== END 2023-05-11 11:35 | disposition home or self-care (01) ==
LOC: MEDOUTP 11:35
PROVIDERS: PCP Internal Medicine; Referring Provider Internal Medicine Gastroenterology; Visit Provider Internal Medicine Gastroenterology
DX: E86.0 Dehydration (principal); R19.8 Other specified symptoms and signs involving the digestive system and abdomen
CPT/HCPCS: 96360; 96361; J7030; A4216

== ENCOUNTER 2023-05-14 12:10 | Outpatient (CLI) | payer MEDICARE, MEDICAID, SELFPAY ==
[2023-02-18 12:34] VITALS: BMI 30.9
[2023-05-14 12:20] VITALS: BP 104/49; PULSE 63; RESP 16; TEMP 36.3; O2SAT 97; BMI 31.3
[2023-05-14] MEDS: 0.9% Normal Saline (1000mL) 1,000 ML 999 ML IV ×2 (12:20→13:36)
[2023-05-14] MEDS: 0.9% NaCl Peripheral Flush Adult/Peds IV (12:20)
--- OUTSIDE RECORDS SUMMARY | 2023-05-14 12:28 | XMS RPT_ITS | CCD ---
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 Name Role Phone GERBER, DEAN C Unavailable [...] (1 source) Dicyclomine; Translations: [dicyclomine] Drug Allergy [facility] [place] [address] Work Phone: liraglutide (1 source) liraglutide; Translations: [Victoza SOPN] Drug Allergy [facility] Work Phone: metFORMIN (1 source) metFORMIN; Translations: [metformin] Drug Allergy [facility] [place] [address] Work Phone: Nitroimidazoles (antibiotic) (1 source) metroNIDAZOLE; Translations: [Flagyl] Drug Allergy [place] [address] Work Phone: Penicillins (antibiotic) (1 source) Penicillins; Translations: [Penicillins] Drug Allergy [place] [address] Work Phone: Sulfonamides (antibiotic) (1 source) Sulfonamides (Antibiotic); Translations: [Sulfa Drugs] Drug Allergy [place] [address] Work Phone: Unclassified (1 source) Cinnamon Flavor OIL; Translations: [Cinnamon Flavor OIL] Allergy to drug (finding) [place] [address] Work Phone: (2 sources) cinnamon preparation; Translations: [CINNAMON] Drug Allergy [facility] Repository (2 sources) codeine; Translations: [CODEINE] Drug Allergy [facility] Repository (4 sources) dicyclomine; Translations: [DICYCLOMINE] Drug Allergy 4 [facility] Repository (2 sources) influenza virus vaccine; Translations: [FLU VACC [id number] 65YR UP(PF)] Drug Allergy [facility] Repository (2 sources) liraglutide; Translations: [LIRAGLUTIDE] Drug Allergy [facility] Repository (2 sources) metFORMIN; Translations: [METFORMIN HCL] Drug Allergy 4 [facility] Repository (2 sources) metroNIDAZOLE; Translations: [METRONIDAZOLE HCL] Drug Allergy 4 [facility] Repository (4 sources) Penicillins; Translations: [PENICILLINS] Propensity to adverse reactions to drug (disorder) [facility] Repository (2 sources) sulfaSALAzine; Translations: [SULFASALAZINE] Drug Allergy [facility] Repository (2 sources) Sulfonamides (Antibiotic); Translations: [SULFA (SULFONAMIDE ANTIBIOTICS)] Propensity to adverse reactions to drug (disorder) [facility] Repository (2 sources) INFLUENZA VIRUS VACCINES; Translations: [INFLUENZA VIRUS VACCINES] Propensity to adverse reactions to drug (disorder) [facility] ([facility] sources) liraglutide Drug Allergy [facility] 120 Work Phone: (2 sources) metFORMIN Drug Allergy [facility] Work Phone: (2 sources) metroNIDAZOLE Drug Allergy [facility] 120 Work Phone: (2 sources) Sulfonamides (Antibiotic) Allergy to drug (finding) [facility] 120 Work Phone: (1 source) Hmg-Coa Reductase Inhibitors (Statins); Translations: [MFNSDMF-XTO-POU REDUCTASE INHIBITORS] Propensity to adverse reactions to drug (disorder) 4 [facility] Repository (1 source) ranolazine; Translations: [RANOLAZINE] Drug Allergy 9 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 / Z79.82(ICD-10) Onset: [...] 11:35-0400 BMI (Body Mass Index) 30.54 kg/m2 Brnenan Duque [facility] G[facility]ology-[facility] 120 Work Phone: 12-20-2019 11:35-0400 Body Temperature 98.2 [degF] Brennan Duque [facility] G[facility]enterology-[facility] 120 Work Phone: 12-20-2019 11:35-0400 Body weight 88.45 kg Brennan Duque [facility] Gastroenterology-[place] 120 Work Phone: 12-20-2019 11:35-0400 BP Diastolic 70 mm[Hg] [facility] 120 Work Phone: 12-20-2019 11:35-0400 BP Systolic 120 mm[Hg] Brennan Duque [facility] Gastroenterology-[facility] 120 Work Phone: 12-20-2019 11:35-0400 BSA (Body Surface Area) 2 m2 Brennan Duque [facility] Gastroenterology-[facility] 120 Work Phone: 12-20-2019 11:35-0400 Height 170.18 cm Brennan Duque [facility] G[facility]enterology-[facility] 120 Work Phone: 11-30-2019 11:55-0400 BMI (Body Mass Index) 30.54 kg/m2 Brennan Duque [facility] Gastroenterology-[facility] 120 Work Phone: 11-30-2019 11:55-0400 Body weight 88.45 kg Brennan Duque [facility] G[facility]enterology-[facility] 120 Work Phone: 11-30-2019 11:55-0400 BP Diastolic 60 mm[Hg] Brennan Duque [facility] Gastroenterology-[facility] 120 Work Phone: 11-30-2019 11:55-0400 BP Systolic 122 mm[Hg] Brennan Duque [facility] Gastroenterology-[facility] 120 Work Phone: 11-30-2019 11:55-0400 BSA (Body Surface Area) 2 m2 Brennan Duque [facility] Gastroenterology-[facility] 120 Work Phone: 11-30-2019 11:55-0400 Height 170.18 cm Brennan Duque [facility] Gastroenterology[facility] 120 Work Phone: 11-30-2019 11:55-0400 Pulse (Heart Rate) 66 /min Brennan Duque [facility] G[facility]enterology-[facility] 120 Work Phone: 11-30-2019 11:55-0400 Pulse Oximetry 96 % Brennan Duque [facility]enterology[facility] 120 Work Phone: Encounters Encounter Date Encounter Type Care Provider Facility Start: 02-18-2022 End: 02-18-2022 ambulatory MALA MADRIGAL Facility:[facility] Start: 10-23-2020 Rx Renewal Mala Zurita [place] Work Phone: [facility] Work Phone: Start: 12-20-2019 Patient encounter procedure Brennan Duque [facility] G[facility]enterology-[place] 120 Work Phone: Start: 11-30-2019 Patient encounter procedure Brennan Duque [facility]enterology-[place] 120 Work Phone: Start: 07-06-2017 Ambulatory DEAN May GERBER [facility] Start: 10-21-2016 End: 10-21-2016 Ambulatory Huma Ocasio Facility[facility] Start: 10-08-2016 Ambulatory Mena Brown Fac ility:[facility] Start: 09-03-2016 Ambulatory Alireza Tavares [facility] Procedures Date Procedure Procedure Detail [...] Brennan Duque, Status: Pen, Time: 10:00 AM [facility] Work Phone: Payers Date Payer Category Payer Unknown [id number] Unknown [id number] Unknown Social History Date Type Detail Facility Former smoker [facility] Work Phone: NEGATED: Highlighted row - - [facility] 120 Work Phone: Medical Equipment [...] Type Note Facility 02-18-2022 Note HNO ID: [id number] Author: Edwige Joy RD Service: ? Author [...] in the bag) Lunch - meals of [employer]/meal delivery service, meat balls and spaghetti, chicken, [...] sand which with salami, ham, cheese sometimes (ukrainian, yemeni) Beverages - diet coke drinks all [...] [Metronidazole Hcl], Fluzone High-Dose (Pf) [Flu Vacc [id number] 65yr Up(Pf)], Glucophage [Metformin Hcl], Influenza Virus Vaccines, Penicillins, Ranexa [Ranolazine], Sulfa (Sulfonamide Antibiotics), Victoza [Liraglutide], and Jeyfrfz-Nkg-Vdf Reductase Inhibitors Medications: Current Outpatient Medications Medication [...] BY MOUTH EV (more content not included)... [facility] Summary Purpose Family History No Family [...] DATE CREATED AUTHOR AUTHOR'S ORGANIZ ATION 08/31/2017 [facility] DATE CREATED AUTHOR AUTHOR'S ORGANIZ ATION 09/01/2017 [facility] DATE CREATED AUTHOR AUTHOR'S ORGANIZ ATION 09/01/2017 [facility] DATE CREATED AUTHOR AUTHOR'S ORGANIZ ATION 06/18/2020 [facility] DATE CREATED AUTHOR AUTHOR'S ORGANIZ ATION 02/14/2021 [facility] DATE CREATED AUTHOR AUTHOR'S ORGANIZ ATION 02/25/2022 [facility] FOR RECORDS PERTAINING TO PATIENTS WHO [...] BE BASED ON THE PRIMARY CLINICAL RECORDS. [facility] [employer] [facility]. provides no warranty or guarantee of the accuracy or completeness of information in this document.
[2023-05-14 14:47] VITALS: BP 122/60; PULSE 64; RESP 16; TEMP 36.2; O2SAT 97
== END 2023-05-14 12:11 | disposition home or self-care (01) ==
LOC: MEDOUTP 12:10
PROVIDERS: PCP Internal Medicine; Referring Provider Internal Medicine Gastroenterology; Visit Provider Internal Medicine Gastroenterology
DX: E86.0 Dehydration (principal); R19.8 Other specified symptoms and signs involving the digestive system and abdomen
CPT/HCPCS: 96360; 96361; J7030; A4216

== ENCOUNTER 2023-05-18 15:22 | Outpatient (CLI) | payer MEDICARE, MEDICAID, SELFPAY ==
[2023-02-18 12:34] VITALS: BMI 30.9
[2023-05-18] MEDS: 0.9% Normal Saline (1000mL) 1,000 ML 999 ML IV ×2 (12:34→13:45)
[2023-05-18 16:11] VITALS: BP 152/70; BP 164/64; PULSE 78; PULSE 79; RESP 16; TEMP 36.2; O2SAT 93; O2SAT 97; BMI 31.3
--- OUTSIDE RECORDS SUMMARY | 2023-05-19 02:13 | XMS RPT_ITS | CCD ---
Author Name Unknown Address [address] [place] [address] Organization [facility] Care Team Providers Care Sheet Manager Name Role Phone GERBER, DEAN C [...] (1 source) Dicyclomine; Translations: [dicyclomine] Drug Allergy [facility] [place] [address] Work Phone: liraglutide (1 source) liraglutide; Translations: [Victoza SOPN] Drug [facility]ergy [facility] Work Phone: metFORMIN (1 source) metFORMIN; Translations: [metformin] Drug Allergy [facility] [place] [address] Work Phone: Nitroimidazoles (antibiotic) (1 source) metroNIDAZOLE; Translations: [Flagyl] Drug Allergy [place] [address] Work Phone: Penicillins (antibiotic) (1 source) Penicillins; Translations: [Penicillins] Drug Allergy [place] [address] Work Phone: Sulfonamides (antibiotic) (1 source) Sulfonamides (Antibiotic); Translations: [Sulfa Drugs] Drug Allergy [place] [address] Work Phone: Unclassified (1 source) Cinnamon Flavor OIL; Translations: [Cinnamon Flavor OIL] Allergy to drug (finding) [place] [address] Work Phone: (2 sources) cinnamon preparation; Translations: [CINNAMON] Drug Allergy 9 [facility] Repository (2 sources) codeine; Translations: [CODEINE] Drug Allergy 9 [facility] Repository (4 sources) dicyclomine; Translations: [DICYCLOMINE] Drug Allergy 4 [facility] Repository (2 sources) influenza virus vaccine; Translations: [FLU VACC [id number] 65YR UP(PF)] Drug Allergy 6 [facility] Repository (2 sources) liraglutide; Translations: [LIRAGLUTIDE] Drug Allergy 7 [facility] Repository (2 sources) metFORMIN; Translations: [METFORMIN HCL] Drug Allergy 4 [facility] Repository (2 sources) metroNIDAZOLE; Translations: [METRONIDAZOLE HCL] Drug Allergy 4 [facility] Repository (4 sources) Penicillins; Translations: [PENICILLINS] Propensity to adverse reactions to drug (disorder) 9 [facility] Repository (2 sources) sulfaSALAzine; Translations: [SULFASALAZINE] Drug Allergy 9 [facility] Repository (2 sources) Sulfonamides (Antibiotic); Translations: [SULFA (SULFONAMIDE ANTIBIOTICS)] Propensity to adverse reactions to drug (disorder) 9 [facility] Repository (2 sources) INFLUENZA VIRUS VACCINES; Translations: [INFLUENZA VIRUS VACCINES] Propensity to adverse reactions to drug (disorder) [facility] ([facility] sources) liraglutide Drug Allergy [facility] 120 Work Phone: (2 sources) metFORMIN Drug [facility]ergy [facility] Work Phone: (2 sources) metroNIDAZOLE Drug Allergy [facility] 120 Work Phone: (2 sources) Sulfonamides (Antibiotic) Allergy to drug (finding) [facility] 120 Work Phone: (1 source) Hmg-Coa Reductase Inhibitors (Statins); Translations: [YHQBAYS-CLI-DNF REDUCTASE INHIBITORS] Propensity to adverse reactions to drug (disorder) 4 [facility] Repository (1 source) ranolazine; Translations: [RANOLAZINE] Drug Allergy 9 [facility] Repository Medications Completed/Discontinued Medications Medication Drug Class(es) [...] [Coronary atherosclerosis of unspecified type of vessel, [place] or graft] Chronic Coronary atherosclerosis and other [...] Onset: 10-21-2016 Unclassified (1 source) 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.82(ICD-10) Onset: [...] (Body Mass Index) 30.54 kg/m2 Brennan Duque [facility] 120 Work Phone: 12-20-2019 11:35-0400 Body Temperature 98.2 [degF] Brennan Duque [facility] 120 Work Phone: 12-20-2019 11:35-0400 Body weight 88.45 kg Brennan Duque [facility] Gastroenterology-[facility] [place] 120 Work Phone: 12-20-2019 11:35-0400 BP Diastolic 70 mm[Hg] [facility] 120 Work Phone: 12-20-2019 11:35-0400 BP Systolic 120 mm[Hg] Brennan Duque [facility]enterology[facility] 120 Work Phone: 12-20-2019 11:35-0400 BSA (Body Surface Area) 2 m2 Brennan Duque [facility]enterology[facility] 120 Work Phone: 12-20-2019 11:35-0400 Height 170.18 cm Brennan Duque [facility]enterology[facility] 120 Work Phone: 11-30-2019 11:55-0400 BMI (Body Mass Index) 30.54 kg/m2 Brennan Duque [facility]enterology[facility] 120 Work Phone: 11-30-2019 11:55-0400 Body weight 88.45 kg Brennan Duque [facility]enterology[facility] 120 Work Phone: 11-30-2019 11:55-0400 BP Diastolic 60 mm[Hg] Brennan Duque [facility]astroenterology[facility] 120 Work Phone: 11-30-2019 11:55-0400 BP Systolic 122 mm[Hg] Brennan Duque [facility]enterology-[facility] 120 Work Phone: 11-30-2019 11:55-0400 BSA (Body Surface Area) 2 m2 Brennan Duque [facility]enterology[facility] 120 Work Phone: 11-30-2019 11:55-0400 Height 170.18 cm Brennan Duque [facility]enterology[facility] 120 Work Phone: 11-30-2019 11:55-0400 Pulse (Heart Rate) 66 /min Brennan Duque [facility]enterology[facility] 120 Work Phone: 11-30-2019 11:55-0400 Pulse Oximetry 96 % Brennan Duque [facility]enterology[facility] 120 Work Phone: Encounters Encounter Date Encounter Type Care Provider Facility Start: 02-18-2022 End: 02-18-2022 ambulatory MALA MADRIGAL Facility:[facility] Start: 10-23-2020 Rx Renewal Mala Zurita [place] Work Phone: [facility] Work Phone: Start: 12-20-2019 Patient encounter procedure Brennan Duque [facility] 120 Work Phone: Start: 11-30-2019 Patient encounter procedure Brennan Duque [facility] 120 Work Phone: Start: 07-06-2017 Ambulatory DEAN May GERBER [facility] Start: 10-21-2016 End: 10-21-2016 Ambulatory Huma [place]casio [facility] Start: 10-08-2016 Ambulatory Mena Brown Fac [facility] Start: 09-03-2016 Ambulatory Alireza Tavares [facility] Procedures Date Procedure Procedure Detail [...] Brennan Duque, Status: Pen, Time: 10:00 AM [facility] 120 Work Phone: Payers Date Payer Category Payer Unknown [id number] Unknown [id number] Unknown Social History Date Type Detail Facility Former smoker Former [facility] Work Phone: NEGATED: Highlighted row - - [facility] 120 Work Phone: Medical Equipment Procedure [...] Type Note Facility 02-18-2022 Note HNO ID: [id number] Author: Edwige Joy RD Service: ? Author [...] in the bag) Lunch - meals of [employer]/meal delivery service, meat balls and spaghetti, chicken, [...] sand which with salami, ham, cheese sometimes (burundian, mozambican) Beverages - diet coke drinks all day [...] [Metronidazole Hcl], Fluzone High-Dose (Pf) [Flu Vacc [id number] 65yr Up(Pf)], Glucophage [Metformin Hcl], Influenza Virus Vaccines, Penicillins, Ranexa [Ranolazine], Sulfa (Sulfonamide Antibiotics), Victoza [Liraglutide], and Wpgeitb-Wyb-Xbq Reductase Inhibitors Medications: Current Outpatient Medications Medication [...] EV (more content not included)... [facility] Summary Purpose Family History No [...] AUTHOR AUTHOR'S ORGANIZ ATION 08/31/2017 [facility] DATE CREATED AUTHOR AUTHOR'S ORGANIZ ATION 09/01/2017 [facility] DATE CREATED AUTHOR AUTHOR'S ORGANIZ ATION 09/01/2017 [facility] DATE CREATED AUTHOR AUTHOR'S ORGANIZ ATION 06/18/2020 [employer] DATE CREATED AUTHOR AUTHOR'S ORGANIZ ATION 02/14/2021 [facility] DATE CREATED AUTHOR AUTHOR'S ORGANIZ ATION 02/25/2022 [facility] FOR RECORDS PERTAINING TO PATIENTS [...] BE BASED ON THE PRIMARY CLINICAL RECORDS. [facility] [employer] [facility]. provides no warranty or guarantee of the accuracy or completeness of information in this document.
== END 2023-05-18 15:23 | disposition home or self-care (01) ==
LOC: MEDOUTP 15:22
PROVIDERS: PCP Internal Medicine; Referring Provider Internal Medicine Gastroenterology; Visit Provider Internal Medicine Gastroenterology
DX: E86.0 Dehydration (principal); R19.8 Other specified symptoms and signs involving the digestive system and abdomen
CPT/HCPCS: 96360; 96361; J7030; A4216

== ENCOUNTER 2023-05-21 11:18 | Outpatient (CLI) | payer MEDICARE, MEDICAID, SELFPAY ==
[2023-02-18 12:34] VITALS: BMI 30.9
[2023-05-21] MEDS: 0.9% NaCl Peripheral Flush Adult/Peds IV (11:25)
[2023-05-21] MEDS: 0.9% Normal Saline (1000mL) 1,000 ML 999 ML IV ×2 (11:38→12:42)
[2023-05-21 11:40] VITALS: BP 151/74; PULSE 77; RESP 16; TEMP 36.1
[2023-05-21 11:53] LABS: Hematocrit 42.1 % (37-47); Hemoglobin 13.1 g/dL (12.0-15.0); Mean Corp Hgb Conc 31.1 g/dL (32-36); Mean Corpuscular Hgb 26.4 pg (27.0-32.0); Mean Corpuscular Volume 84.9 fL (81-99); Mean Platelet Vol. 12.1 fl (6.2-12.0); Platelet Count 196 K/mm3 (150-450); RBC Distribution Width CV 16.5 % (11.6-14.6); Red Blood Count 4.96 M/mm3 (4.2-5.4)
[2023-05-21 12:08] LABS: Albumin, Serum 3.6 g/dL (3.2-5.0); BUN 28 mg/dL (7-18); BUN/Creat Ratio 14.9 RATIO (10-20); Calcium,Total 9.5 mg/dL (8.5-10.1); Chloride 107 mmol/L (98-107); Creatinine, Serum 1.88 mg/dL (0.55-1.02); EST Glomerular Filtration Rate 29 mL/min (>60); Est Glom Filt Rate - Afr Amer 35 mL/min (>60); Glucose 149 mg/dL (74-106); Phosphorus 3.9 mg/dL (2.5-4.9); Potassium 3.8 mmol/L (3.5-5.1); Sodium Level 139 mmol/L (136-145)
[2023-05-21 12:10] LABS: Vitamin D,25 Hydroxy 17.6 ng/mL
[2023-05-21 13:52] VITALS: BP 167/68; PULSE 75; RESP 16; TEMP 36.3; O2SAT 98
[2023-05-21 14:21] LABS: Protein, Urine (Random) 53.1 mg/dL (<11.9); Protein:Creat Ratio 653 mg/g CRE (0-200)
== END 2023-05-21 11:19 | disposition home or self-care (01) ==
LOC: MEDOUTP 11:18
PROVIDERS: Nurse Practitioner Adult Health; PCP Internal Medicine; Referring Provider Internal Medicine Gastroenterology; Visit Provider Internal Medicine Gastroenterology
DX: E86.0 Dehydration (principal); N18.32 Chronic kidney disease, stage 3b; R19.8 Other specified symptoms and signs involving the digestive system and abdomen
CPT/HCPCS: 96360; 96361; 80069; 82306; 82570; 83970; 84156; 85027; J7030; A4216

== ENCOUNTER 2023-05-25 12:11 | Outpatient (CLI) | payer MEDICARE, MEDICAID, SELFPAY ==
[2023-02-18 12:34] VITALS: BMI 30.9
[2023-05-25 12:31] VITALS: BP 122/50; PULSE 84; RESP 16; TEMP 36.5; O2SAT 92; BMI 31.3
[2023-05-25] MEDS: 0.9% Normal Saline 1,000 ML 999 ML IV ×2 (12:43→13:47)
[2023-05-25 14:57] VITALS: BP 131/57; PULSE 74
== END 2023-05-25 12:12 | disposition home or self-care (01) ==
LOC: MEDOUTP 12:12
PROVIDERS: PCP Internal Medicine; Referring Provider Internal Medicine Gastroenterology; Visit Provider Internal Medicine Gastroenterology
DX: E86.0 Dehydration (principal); R19.8 Other specified symptoms and signs involving the digestive system and abdomen
CPT/HCPCS: 96360; 96361; J7030; A4216

== ENCOUNTER 2023-05-27 10:49 | Emergency (ER) | payer MEDICARE, MEDICAID, SELFPAY ==
[2023-02-18 12:34] VITALS: BMI 30.9
[2023-05-27 10:50] VITALS: BP 127/81; PULSE 89; RESP 20; TEMP 36.4; O2SAT 95; BMI 31.6
[2023-05-27 11:10] VITALS: BP 131/69; PULSE 84; RESP 15; TEMP 36.7; O2SAT 97
[2023-05-27 11:11] VITALS: O2SAT 97
--- NOTE | 2023-05-27 11:32 | EX.ED.DYSGE1 ---
HPI <ROBERT Rajput - Last Filed: 05/27/23 15:25> History of Present Illness Chief Complaint: Shortness of Breath Narrative Narrative: Patient resenting today with concerns for dehydration. She reports a history of gastroparesis, nonalcoholic fatty liver disease, ileostomy with short gut syndrome. She does follow with Dr. Andino and is scheduled to have a scope performed Wednesday. She reports that she normally has to change her ileostomy a few times a day but over the past 2 days has had increased watery stools and has been changing it almost hourly. She reports that this has happened in the past, she usually has nausea, vomiting, and abdominal cramping with these flares. She denies any blood in her stool or hematemesis. She reports that she feels dehydrated and has felt intermittently dizzy which she describes as a, woozy feeling. She also reports concerns that her ammonia level could be high but she has had, trouble thinking and has felt slightly confused. She reports concerns for worsening kidney function due to the dehydration. [facility] <ROBERT Rajput - Last Filed: 05/27/23 15:25> [facility] Medical History Acute kidney injury Ambulates with cane Anxiety Anxiety and depression Arthritis Arthritis Avascular necrosis of bone of left hip Back pain BiPAP (biphasic positive airway pressure) dependence BMI 31.0-31.9,adult CAD (coronary artery disease) Cardiology follow-up encounter Cellulitis, abdominal wall Chronic back pain Chronic diastolic (congestive) heart failure Chronic narcotic use Chronic pain Chronic respiratory failure Chronic respiratory failure with hypoxia, on home O2 therapy CKD (chronic kidney disease), stage IV Congestive heart failure (CHF) COPD (chronic obstructive pulmonary disease) Depression Depression with anxiety Diabetic gastroparesis Dietary restriction DM2 (diabetes mellitus, type 2) Elevated anti-tissue transglutaminase (tTG) IgA level Fatty liver FCHL (familial combined hyperlipidemia) Former smoker Gastric reflux High cholesterol High output ileostomy History of CAD (coronary artery disease) History of COVID-19 History of echocardiogram History of pain when walking History of renal disease Hx of diabetic gastroparesis Hyperlipidemia Hypertension Ileostomy present Insulin dependent diabetes mellitus Left shoulder pain Liver mass Loss of hearing Malaise and fatigue Menieres disease MGUS (monoclonal gammopathy of unknown significance) Migraine headache Myoclonic jerking Non-alcoholic fatty liver disease Nonalcoholic steatohepatitis Obesity Obstructive sleep apnea Post-menopausal Psoriasis Rash Rheumatoid arthritis Secondary pulmonary arterial hypertension Short bowel syndrome Sleep apnea Smoking greater than 20 pack years Tremor Type 2 diabetes mellitus with diabetic polyneuropathy Ulcerative colitis Vitamin B12 deficiency Vitamin D deficiency Walker as ambulation aid Wears glasses Home Medications aspirin 81 mg tablet,delayed release 81 mg PO DAILY heart health 04/08/21 [History Last Taken 04/30/23] duloxetine 30 mg capsule,delayed release 30 mg PO DAILY depression 10/06/21 [History Last Taken 04/30/23] Wheel Chair 11/15/21 [History Last Taken Unknown] blood sugar diagnostic (True Metrix Glucose Test Strip) 11/15/21 [History Last Taken Unknown] blood-glucose meter,continuous (Dexcom G6 Numerical Control Machine Tool Operator) 11/15/21 [History Last Taken Unknown] pen needle, diabetic 32 gauge x 5/32 (BD Ultra-Fine Key Pen Needle) 11/15/21 [History Last Taken Unknown] nitroglycerin 0.4 mg sublingual tablet 0.4 mg sublingual Q5-15M PRN chest pain #25 tabs 11/20/21 [Rx Last Taken Unknown] ostomy supplies #1 ea 02/13/22 [Rx Last Taken Unknown] atorvastatin 80 mg tablet 80 mg PO QHS CHOLESTEROL LOWERING #90 tabs 08/04/22 [Rx Last Taken 04/30/23] blood-glucose transmitter (Dexcom G6 Transmitter device) #1 ea 08/07/22 [Rx Last Taken Unknown] metoprolol tartrate 50 mg tablet 50 mg PO .COMPLEX blood pressure 09/02/22 [History Last Taken 04/30/23] Handicap Placard #1 ea 09/16/22 [Rx Last Taken Unknown] isosorbide dinitrate 30 mg tablet 30 mg PO BID heart #60 tabs 12/11/22 [Rx Last Taken 04/30/23] blood-glucose sensor (Dexcom G6 Sensor device) #9 ea 12/14/22 [Rx Last Taken Unknown] insulin pump cart,automated,BT (Omnipod 5 G6 Pods (Gen 5) subcutaneous cartridge) #45 ea 01/13/23 [Rx Last Taken Unknown] Juanita Cohesive Seal 2 diameter #15 ea 01/18/23 [Rx Last Taken Unknown] Esenta Sting Free Adhesive Remover Wipe - #15 ea 01/18/23 [Rx Last Taken Unknown] Esenta Sting Free Skin Barrier Pandora, 50 mL - #15 ea 01/18/23 [Rx Last Taken Unknown] Esteem + Convex One-Piece Drainable Pre-Cut Pouch w/visiClose, Durahesive, 12 panel Opaque, 1 03/15 #15 ea 01/18/23 [Rx Last Taken Unknown] clopidogrel 75 mg tablet 75 mg PO DAILY heart health #90 tabs 02/04/23 [Rx Last Taken 04/30/23] blood sugar diagnostic (True Metrix Glucose Test Strip) #100 ea 02/08/23 [Rx Last Taken Unknown] buprenorphine 15 mcg/hour weekly transdermal patch 1 patch transdermal Q7D pain 02/10/23 [History Last Taken 05/01/23] melatonin 5 mg tablet 5 mg PO HS sleep 02/10/23 [History Last Taken 04/30/23] cyclobenzaprine 10 mg tablet 10 mg PO TID PRN muscle spasm #30 tabs 02/24/23 [Rx Last Taken 04/30/23] benzonatate 200 mg capsule 200 mg PO BID PRN cough #30 caps 03/10/23 [Rx Last Taken Unknown] trazodone 50 mg tablet 50 mg PO QHS sleep 03/18/23 [History Last Taken 04/30/23] cholestyramine (with sugar) 4 gram powder for susp in a packet 4 g PO BIDAC stool #60 ea 03/31/23 [Rx Last Taken 04/30/23] diphenoxylate-atropine 2.5 mg-0.025 mg tablet (Lomotil) 1 tab PO TID diarrhea #90 tabs 03/31/23 [Rx Last Taken 04/30/23] dapagliflozin propanediol 10 mg tablet (Farxiga) 10 mg PO DAILY diabetes #90 tabs 04/03/23 [Rx Last Taken 04/30/23] insulin lispro 200 unit/mL (3 mL) subcutaneous pen (Humalog KwikPen U-200 Insulin) 160 unit (0.8 mL) subcut DAILY diabetes #72 mL 04/21/23 [Rx Last Taken Unknown] metoprolol tartrate 25 mg tablet 25 mg PO .COMPLEX bp #180 tabs 04/29/23 [Rx Last Taken 04/30/23] pantoprazole 40 mg tablet,delayed release (Protonix) 40 mg PO BID GERD #60 tabs 04/29/23 [Rx Last Taken 04/30/23] pregabalin 75 mg capsule 75 mg PO BID #56 caps 04/29/23 [Rx Last Taken 04/30/23] albuterol sulfate 90 mcg/actuation aerosol inhaler 2 puff inhalation BID PRN SOB 05/01/23 [History Last Taken Unknown] duloxetine 60 mg capsule,delayed release 60 mg PO DAILY depression 05/01/23 [History Last Taken 04/30/23] lamotrigine 200 mg tablet 200 mg PO DAILY 05/01/23 [History Last Taken 04/30/23] dicyclomine 10 mg capsule 10 mg PO BID 30 days #60 caps 05/03/23 [Rx Last Taken Unknown] Allergy/AdvReac Type Severity Reaction Status Date / Time ciprofloxacin Allergy Intermediate Swelling Verified 05/25/23 12:30 cinnamon [Cinnamon] Allergy Anaphylaxis Verified 05/25/23 12:30 Influenza Virus Vaccines Allergy Shortness Verified 05/25/23 12:30 of breath liraglutide [From Victoza] Allergy Anaphylaxis Verified 05/25/23 12:30 metformin [From Glucophage] Allergy NEEDS Verified 05/25/23 12:30 FOLLOW-UP metronidazole [From Flagyl] Allergy Hives Verified 05/25/23 12:30 Metronidazole HCl Allergy Hives Verified 05/25/23 12:30 [From Flagyl] Penicillins Allergy Hives Verified 05/25/23 12:30 Sulfa (Sulfonamide Allergy Hives Verified 05/25/23 12:30 Antibiotics) aripiprazole [From Abilify] AdvReac hallucinati Verified 05/25/23 12:30 ons codeine AdvReac Stops Verified 05/25/23 12:30 Ileostomy metformin HCl AdvReac Nausea Verified 05/25/23 12:30 [From Glucophage] ranolazine AdvReac Nausea/Vom/ Verified 05/25/23 12:30 Diarrhea [id number] Reductase AdvReac Nausea/joints Verified 05/25/23 12:30 Inhibitor ache [[id number] Reductase Inhibitor] Family History Mother CVA (cerebral vascular accident) Diabetes Brother Heart disease of CAD at 65 Myocardial infarction Pancreatitis Father Cancer lymphomia Lymphoma Grandmother Myocardial infarction of [place] in her 70s Sister COPD (chronic obstructive pulmonary disease) Surgical History H/O colectomy H/O coronary artery bypass surgery (05/18/12) H/O sinus surgery H/O total hysterectomy history closed fissure History of appendectomy History of History of cardiac catheterization History of cholecystectomy History of coronary artery stent placement (01/12/18) History of coronary artery stent placement ileostomy Ileostomy status left thumb surgery Status post total hip replacement, left Social History household members: none Smoking Status: Former smoker quit date: 03/08/12 how long ago did patient quit smoking: quit in 2012; 0.5-1ppd x 30yrs alcohol intake: never substance use type: does not use diet: diabetic caffeine: No eating out: 1-3 times/week what type of physical activity do you participate in: none seatbelt use: always do you feel safe at home: Yes ROS <ROBERT Rajput - Last Filed: 05/27/23 15:25> ROS ED Constitutional Constitutional ED: Denies chills or fever(s) Cardiovascular Cardiovascular: Denies chest pain Respiratory/Chest Respiratory/Chest: Reports dyspnea on exertion; Denies cough Gastrointestinal Gastrointestinal: Reports abdominal pain, diarrhea, nausea and vomiting; Denies constipation or melena Genitourinary Genitourinary ED: Denies dysuria, hematuria or urinary urgency Musculoskeletal Musculoskeletal: Denies arthralgias or myalgias Integumentary Denies rash Neurologic Neurologic: Denies weakness EXAM <ROBERT Rajput - Last Filed: 05/27/23 15:25> Physical Exam Const Vital Signs: 05/27/23 10:50 05/27/23 11:10 05/27/23 11:11 Temperature 97.6 F L 98.1 F Temperature Source Temporal Temporal Pulse Rate 89 84 Respiratory Rate 20 H 15 Respiratory Effort Normal Non-Labored Respiratory Depth Normal Respiratory Pattern Normal Blood Pressure 127/81 H 131/69 H Blood Pressure Mean 96 89 Pulse Ox 95 97 Oxygen Delivery Method Room Air Room Air Room Air 05/27/23 11:50 05/27/23 12:03 05/27/23 13:00 Temperature 97.4 F L Temperature Source Pulse Rate 75 77 72 Respiratory Rate 17 17 14 Respiratory Effort Respiratory Depth Respiratory Pattern Blood Pressure 167/81 H 160/66 H 162/74 H Blood Pressure Mean 109 97 103 Pulse Ox 95 96 97 Oxygen Delivery Method Room Air Positive well nourished, well developed and no apparent distress General Appearance ED: well developed HEENT Reports normocephalic and head/scalp atraumatic Mouth ED: Yes moist mucous membranes normal Eyes PERRL and EOMs intact bilaterally Neck full ROM and supple Chest Wall inspection of chest normal Resp normal respiratory effort and clear to auscultation bilaterally Cardio regular rate and regular rhythm GI soft to palpation, non-tender, non-distended and no masses GI Narrative: Watery green-colored stool noted from the ileostomy. Back/Spine normal ROM and normal to inspection Extremity normal to inspection and full ROM Neuro oriented x3, CN's II-XII intact bilaterally, moves all extremities, no focal motor deficits and no sensory deficits noted Sensorium / Orientation: awake and alert Psych mental status grossly normal and thought process normal Skin no rashes or lesions noted and no wounds <Dr. Shiva Chapa DO - Last Filed: 05/27/23 12:55> Physical Exam Const Vital Signs: 05/27/23 10:50 05/27/23 11:10 05/27/23 11:11 Temperature 97.6 F L 98.1 F Temperature Source Temporal Temporal Pulse Rate 89 84 Respiratory Rate 20 H 15 Respiratory Effort Normal Non-Labored Respiratory Depth Normal Respiratory Pattern Normal Blood Pressure 127/81 H 131/69 H Blood Pressure Mean 96 89 Pulse Ox 95 97 Oxygen Delivery Method Room Air Room Air Room Air 05/27/23 11:50 05/27/23 12:03 05/27/23 13:00 Temperature 97.4 F L Temperature Source Pulse Rate 75 77 72 Respiratory Rate 17 17 14 Respiratory Effort Respiratory Depth Respiratory Pattern Blood Pressure 167/81 H 160/66 H 162/74 H Blood Pressure Mean 109 97 103 Pulse Ox 95 96 97 Oxygen Delivery Method Room Air MDM <ROBERT Rajput - Last Filed: 05/27/23 15:25> [facility] MDM Narrative Medical decision making narrative: Patient presenting with concerns for dehydration. She has had increased watery stools over the past 2 days as well as a few episodes of nausea and vomiting. She reports that she has been admitted here in the past for similar symptoms due to dehydration, RALPH, and electrolyte abnormality. She is nontoxic-appearing and in no acute distress, clinically she does not look dehydrated. Labs will be obtained and she will be given IV fluids and Zofran. CBC overall is unremarkable, BMP shows a creatinine of 2.0 and BUN of 27, this is consistent with her CKD and previous labs, it has been significantly more elevated in the past when she has been admitted. No electrolyte derangement. On reexamination she is tolerating p.o. fluids and she reports improvement of her symptoms. She does have a follow-up appointment with Dr. Andino on Wednesday. She is scheduled to have IV fluids tomorrow as an outpatient. She has been given return instructions and will be discharged home in stable condition. She is comfortable with plan. Lab Data Attestation: I reviewed the patient's lab results. Labs: Laboratory Results - last 24 hr 05/27/23 11:45 WBC 8.1 RBC 4.88 Hgb 12.9 Hct 41.9 MCV 85.9 MCH 26.4 L MCHC 30.8 L RDW Std Deviation 51.1 H RDW Coeff of Jan 16.3 H Plt Count 195 MPV 11.7 Immature Gran % (Auto) 0.400 Neut % (Auto) 57.1 Lymph % (Auto) 26.2 Coffey % (Auto) 7.4 Eos % (Auto) 8.4 H Baso % (Auto) 0.5 Absolute Neuts (auto) 4.6 Absolute Lymphs (auto) 2.12 Nucleated RBC % 0 Sodium 136 Potassium 4.4 Chloride 105 Carbon Dioxide 25.0 Anion Gap 6 BUN 27 H Creatinine 2.00 H Estim Creat Clear Calc 33.01 Est GFR (MDRD) Af Amer 32 L Est GFR (MDRD) Non-Af 27 L BUN/Creatinine Ratio 13.5 Glucose 159 H Calcium 9.7 Total Bilirubin 1.00 AST 16 ALT 19 Alkaline Phosphatase 158 H Ammonia 18.0 Total Protein 8.2 Albumin 3.4 Globulin 4.8 H Albumin/Globulin Ratio 0.7 L Lipase 46 <Dr. Shiva Chapa, DO - Last Filed: 05/27/23 12:55> [facility] Lab Data Labs: Laboratory Results - last 24 hr 05/27/23 11:45 WBC 8.1 RBC 4.88 Hgb 12.9 Hct 41.9 MCV 85.9 MCH 26.4 L MCHC 30.8 L RDW Std Deviation 51.1 H RDW Coeff of Jan 16.3 H Plt Count 195 MPV 11.7 Immature Gran % (Auto) 0.400 Neut % (Auto) 57.1 Lymph % (Auto) 26.2 Coffey % (Auto) 7.4 Eos % (Auto) 8.4 H Baso % (Auto) 0.5 Absolute Neuts (auto) 4.6 Absolute Lymphs (auto) 2.12 Nucleated RBC % 0 Sodium 136 Potassium 4.4 Chloride 105 Carbon Dioxide 25.0 Anion Gap 6 BUN 27 H Creatinine 2.00 H Estim Creat Clear Calc 33.01 Est GFR (MDRD) Af Amer 32 L Est GFR (MDRD) Non-Af 27 L BUN/Creatinine Ratio 13.5 Glucose 159 H Calcium 9.7 Total Bilirubin 1.00 AST 16 ALT 19 Alkaline Phosphatase 158 H Ammonia 18.0 Total Protein 8.2 Albumin 3.4 Globulin 4.8 H Albumin/Globulin Ratio 0.7 L Lipase 46 Treatment and Re-Evaluation :: I have personally performed a face to face assessment of the patient and have reviewed the GARRET Note. I performed a substantive portion of the visit including all aspects of the following. My lozano findings include: History: Patient presents with abdominal pain, nausea, vomiting, and diarrhea. Patient states this is chronic for her. Patient states that she gets dehydrated easily and is concerned she may be getting dehydrated. Patient describes her pain as cramping. Patient states it is diffuse across her abdomen. Patient denies any fevers or chills. Patient denies any chest pain or shortness of breath. Patient states her pain does radiate into her back. Patient denies any hematemesis or coffee-ground emesis. Patient denies any melena or hematochezia. Exam: Vital signs are stable. Patient is afebrile. Patient is in no acute distress. Oral mucosa is pink and slightly dry. Neck is supple. Trachea is midline. There is no JVD. Heart was regular rate and rhythm. Lungs are clear and equal bilateral. There is good respiratory effort noted. Abdomen is soft. Bowel sounds are normal. There is mild diffuse tenderness. There is no rebound or guarding noted. Cranial nerves II through XII are intact. There are no focal motor or sensory deficits noted. Extremities are intact. There is no calf tenderness or edema. Medical Decision Making: Differential diagnosis includes gastroenteritis, dehydration, anemia, electrolyte abnormality, pancreatitis, and hepatic encephalopathy. CBC will be obtained to assess for leukocytosis and anemia. Comprehensive metabolic profile will be obtained to assess for hepatic function, renal function, and electrolyte abnormality. Lipase will be obtained to assess for pancreatitis. Serum ammonia level will be obtained to assess for hepatic encephalopathy. Patient was given IV fluids and Zofran. CBC was reviewed and was within normal limits. Comprehensive metabolic profile was reviewed. BUN was 27 and creatinine was 2.0. These are consistent with prior results. Lipase was reviewed and was normal at 46. Serum ammonia level was reviewed and was normal at 18. Patient was able to keep oral fluids down. Patient was instructed to follow-up with her gastroenterology appointment as previously instructed. Patient understood and was agreeable with the plan. All questions were answered. Discharge Plan Triage Chief Complaint: Shortness of Breath ED Midlevel Provider: Jessica Guerra ED Provider: Shiva Chapa Dx/Rx/DC Orders Clinical Impression: Gastroparesis, High output ileostomy, CKD (chronic kidney disease), COPD (chronic obstructive pulmonary disease), Nausea & vomiting Instructions: Gastroparesis, ED Vomit Diarrhea Nonspec Adult Prescriptions: No Action duloxetine 30 mg capsule,delayed release(DR/EC) 30 mg PO DAILY Patient Comments: pt takes , 30 mg cap & 60 mg cap to equal 90 mg cap nitroglycerin 0.4 mg tablet, sublingual 0.4 mg sublingual Q5-15M PRN (Reason: chest pain) Qty: 25 6RF Rx Instructions: do not exceed 3 doses per episode buprenorphine 15 mcg/hour patch weekly 1 patch transdermal Q7D Patient Comments: changes on wednesday melatonin 5 mg tablet 5 mg PO HS (DME) Handicap Placard See Rx Instructions .ROUTE .MEDSUPPLY Qty: 1 0RF Rx Instructions: As directed, length of time 3 years (DME) True Metrix Glucose Test Strip Strip See Rx Instructions .Route Qty: 100 5RF Rx Instructions: TID cyclobenzaprine 10 mg tablet 10 mg PO TID PRN (Reason: muscle spasm) Qty: 30 0RF benzonatate 200 mg capsule 200 mg PO BID PRN (Reason: cough) Qty: 30 0RF diphenoxylate-atropine [Lomotil] 2.5-0.025 mg tablet 1 tab PO TID Qty: 90 2RF cholestyramine (with sugar) 4 gram powder in packet 4 g PO BIDAC Qty: 60 11RF aspirin 81 mg Tablet,Delayed Release (Dr/Ec) 81 mg PO DAILY Hold Instructions: Resume on 06/10/22. ([facility] True Metrix Glucose Test Strip Strip See Rx Instructions .Route Rx Instructions: 3 times per day No longer ([facility] [place]) Dexcom G6 Numerical Control Machine Tool Operator Misc See Rx Instructions .ROUTE .MEDSUPPLY Rx Instructions: As directed ([facility] [place]) pen needle, diabetic [BD Ultra-Fine Key Pen Needle] 32 gauge x 5 needle See Rx Instructions .ROUTE .MEDSUPPLY Rx Instructions: takes 5 injection/day ([facility] [place]) Wheel Chair See Rx Instructions Rx Instructions: As directed metoprolol tartrate 50 mg tablet 50 mg PO .COMPLEX Rx Instructions: 50 mg orally twice a day with a 25 mg tablet twice a day to = 75 mg twice a day; trazodone 50 mg tablet 50 mg PO QHS duloxetine 60 mg capsule,delayed release(DR/EC) 60 mg PO DAILY Patient Comments: pt takes , 30 mg cap & 60 mg cap to equal 90 mg cap lamotrigine 200 mg tablet 200 mg PO DAILY albuterol sulfate 90 mcg/actuation HFA aerosol inhaler 2 puff INHALATION BID PRN (Reason: SOB) dicyclomine 10 mg Capsule 10 mg PO BID 30 Days Qty: 60 0RF (DME) ostomy supplies See Rx Instructions .Route .MEDSUPPLY Qty: 1 0RF Rx Instructions: Pouches Barrier rings Adhesive remover Skin Prep Barrier powder atorvastatin 80 mg tablet 80 mg PO QHS Qty: 90 3RF Patient Comments: cholesterol (DME) Dexcom G6 Transmitter Device See Rx Instructions .ROUTE .MEDSUPPLY Qty: 1 3RF Rx Instructions: 1 transmitter every 90 days isosorbide dinitrate 30 mg tablet 30 mg PO BID Qty: 60 11RF (DME) Dexcom G6 Sensor Device See Rx Instructions .ROUTE .MEDSUPPLY Qty: 9 1RF Rx Instructions: 1 sensor every 10 days (DME) Omnipod 5 G6 Pods (Gen 5) Cartridge See Rx Instructions .Route Qty: 45 1RF Rx Instructions: 1 pod q 48 hours (DME) Juanita Cohesive Seal 2 diameter See Rx Instructions .Route .MEDSUPPLY Qty: 15 7RF Rx Instructions: As directed (DME) Esenta Sting Free Adhesive Remover Wipe - See Rx Instructions .Route .MEDSUPPLY Qty: 15 7RF Rx Instructions: As directed (DME) Esenta Sting Free Skin Barrier Pandora, 50 mL - See Rx Instructions .Route .MEDSUPPLY Qty: 15 7RF Rx Instructions: As directed (DME) Esteem + Convex One-Piece Drainable Pre-Cut Pouch w/visiClose, Durahesive, 12 panel Opaque, 1 03/15 See Rx Instructions .Route .MEDSUPPLY Qty: 15 7RF Rx Instructions: As directed clopidogrel 75 mg tablet 75 mg PO DAILY Qty: 90 3RF Hold Instructions: Resume on 06/10/22. Patient Comments: LAST DOSE WILL BE 05/26 FOR PROCEDURE Rx Instructions: TAKE 1 TABLET BY MOUTH EVERY DAY dapagliflozin propanediol [Farxiga] 10 mg tablet 10 mg PO DAILY Qty: 90 1RF Hold Instructions: Stopped per Dr Dewitt 05/10/23 Humalog KwikPen Insulin 200 unit/mL (3 mL) insulin pen 160 unit subcut DAILY Qty: 72 3RF Rx Instructions: 2.05 units/hr from 12 AM to 6:30 AM 2.15 units/hr from 6:30 AM to 12 AM metoprolol tartrate 25 mg tablet 25 mg PO .COMPLEX Qty: 180 3RF Rx Instructions: 25 mg orally take with a 50 mg tablet twice a day to = 75 mg twice a day; pantoprazole [Protonix] 40 mg tablet,delayed release (DR/EC) 40 mg PO BID Qty: 60 11RF pregabalin 75 mg capsule 75 mg PO BID Qty: 56 0RF Primary Care Provider: Mala Mcgrath Referrals: Mala Mcgrath MD [Primary Care Provider] - 3-5 Days Activity Restrictions/Additional Instructions: Stay well-hydrated and return for any worsening of your symptoms. Disposition Disposition: Home, Self Care Discharge Date/Time: 05/27/23 13:14
[2023-05-27] MEDS: 0.9% Normal Saline (1000mL) 1,000 ML 1000 ML IV (11:43)
[2023-05-27] MEDS: Ondansetron 4 MG/2 ML Vial IV (11:45)
[2023-05-27 11:50] VITALS: BP 167/81; PULSE 75; RESP 17; O2SAT 95
[2023-05-27 12:00] LABS: Absolute Lymphocyte Count 2.12 X10^3/uL (0.83-4.51); Absolute Neutrophil Count 4.6 X10^3/uL (2.0-7.7); Basophil# 0.04 X10^3/uL; Basophil% 0.5 % (0-1); Eosinophil# 0.68 X10^3/uL; Eosinophils% 8.4 % (0-5); Hematocrit 41.9 % (37-47); Hemoglobin 12.9 g/dL (12.0-15.0); Lymphocyte # 2.12 X10^3/ul (0.83-4.51); Lymphocyte % 26.2 % (19-41); Mean Corp Hgb Conc 30.8 g/dL (32-36); Mean Corpuscular Hgb 26.4 pg (27.0-32.0); Mean Corpuscular Volume 85.9 fL (81-99); Mean Platelet Vol. 11.7 fl (6.2-12.0); Monocyte% 7.4 % (0-10); NRBC Flagged by Analyzer 0 % (0-5); Neutrophil # 4.61 X10^3/uL (2.7-7.7); Neutrophil % 57.1 % (47-70); Platelet Count 195 K/mm3 (150-450); RBC Distribution Width CV 16.3 % (11.6-14.6); RBC Distribution Width SD 51.1 fl (35.1-43.9); Red Blood Count 4.88 M/mm3 (4.2-5.4); White Blood Count 8.1 K/mm3 (4.4-11.0)
[2023-05-27 12:03] VITALS: BP 160/66; PULSE 77; RESP 17; O2SAT 96
[2023-05-27 12:14] LABS: ALB/GLOB Ratio 0.7 RATIO (0.9-2.4); AST(SGOT) 16 U/L (15-37); Alanine Aminotransfer ALT/SGPT 19 U/L (13-56); Albumin, Serum 3.4 g/dL (3.2-5.0); Alkaline Phosphatase 158 U/L (45-117); Anion Gap 6 (5-15); BUN 27 mg/dL (7-18); BUN/Creat Ratio 13.5 RATIO (10-20); Calcium,Total 9.7 mg/dL (8.5-10.1); Chloride 105 mmol/L (98-107); EST Glomerular Filtration Rate 27 mL/min (>60); Est Glom Filt Rate - Afr Amer 32 mL/min (>60); Estimated Creatinine Clearance 33.01 ml/min; Globulin 4.8 g/dL (2.2-4.2); Glucose 159 mg/dL (74-106); Lipase 46 U/L (13-75); Potassium 4.4 mmol/L (3.5-5.1); Protein, Total 8.2 g/dL (6.4-8.2); Sodium Level 136 mmol/L (136-145)
[2023-05-27 13:00] VITALS: BP 162/74; PULSE 72; RESP 14; TEMP 36.3; O2SAT 97
== END 2023-05-27 13:14 | disposition home or self-care (01) ==
PROVIDERS: Physician Assistant; Emergency Provider Emergency Medicine; PCP Internal Medicine; Visit Provider Emergency Medicine
DX: K31.84 Gastroparesis (principal); J44.9 Chronic obstructive pulmonary disease, unspecified; I13.0 Hypertensive heart and chronic kidney disease with heart failure and stage 1 through stage 4 chronic kidney disease, or unspecified chronic kidney disease; I50.32 Chronic diastolic (congestive) heart failure; E11.43 Type 2 diabetes mellitus with diabetic autonomic (poly)neuropathy; E11.22 Type 2 diabetes mellitus with diabetic chronic kidney disease; N18.4 Chronic kidney disease, stage 4 (severe); R11.2 Nausea with vomiting, unspecified; I25.10 Atherosclerotic heart disease of native coronary artery without angina pectoris; G47.33 Obstructive sleep apnea (adult) (pediatric); Z86.16 Personal history of COVID-19; Z95.1 Presence of aortocoronary bypass graft; Z95.5 Presence of coronary angioplasty implant and graft; Z87.891 Personal history of nicotine dependence
CPT/HCPCS: 80053; 82140; 83690; 85025; 96361; 96374; 99284; J2405

== ENCOUNTER 2023-05-28 10:03 | Outpatient (CLI) | payer MEDICARE, MEDICAID, SELFPAY ==
[2023-02-18 12:34] VITALS: BMI 30.9
[2023-05-28 10:50] VITALS: BP 153/70; PULSE 118; RESP 16; TEMP 35.6; O2SAT 94
[2023-05-28] MEDS: 0.9% Normal Saline (1000mL) 1,000 ML 999 ML IV ×2 (10:50→11:56)
[2023-05-28] MEDS: 0.9% NaCl Peripheral Flush Adult/Peds IV (10:53)
[2023-05-28 13:14] VITALS: BP 143/63; PULSE 102
== END 2023-05-28 10:04 | disposition home or self-care (01) ==
LOC: MEDOUTP 10:03
PROVIDERS: PCP Internal Medicine; Referring Provider Internal Medicine Gastroenterology; Visit Provider Internal Medicine Gastroenterology
DX: E86.0 Dehydration (principal); R19.8 Other specified symptoms and signs involving the digestive system and abdomen
CPT/HCPCS: 96360; 96361; J7030; A4216

== ENCOUNTER 2023-05-31 05:08 | Day surgery (SDC) | payer MEDICARE, MEDICAID, SELFPAY ==
[2023-02-18 12:34] VITALS: BMI 30.9
[2023-05-31 05:49] VITALS: BP 163/75; PULSE 82; RESP 16; TEMP 36.4; O2SAT 95; BMI 30.7
[2023-05-31] MEDS: Lactated Ringers 1,000 ML 15 ML IV (05:53)
[2023-05-31 06:29] LABS: Bedside Glucose 156 mg/dL (74-106)
--- NOTE | 2023-05-31 06:30 | EGD_PTH ---
PATIENT: ASHLEY MÉNDEZ LOC: [facility] U#:[id number] AGE/SX: 62/F ROOM: RE05/31/[address]: Dr. Aj Andino DO : 1960 BED: DIS: 05/31/2023 SPEC #: [id number] RECD: 05/31/23 11:29 STATUS: ISAAC HALLIE #: [id number] BLAKE: 05/31/23 06:[address]: Aj Andino DEPT: SURGICAL PATHOLOGY RECD BY: Bailee Rodas ENTERED: 05/31/23 11:57 SP TYPE: EGD BIOPSY BASIL DR: Dr. Mala Mcgrath MD Tissues: A - Duodenum, NOS B - Gastric mucous membrane C - Ileum, NOS Procedures: Surgery Specimen Level IV HEADER OPERATION: Colonoscopy, EGD biopsy PRE-OP DIAGNOSIS: High output ileostomy, Gastroparesis TISSUE SUBMITTED: A- Duodenum biopsy, B- Gastric body polyp biopsy, C- Ileum biopsy MICROSCOPIC DIAGNOSIS A. Duodenum, biopsy; Fragments of duodenal and gastric mucosa with chronic inflammation. B. Gastric body polyp, biopsy; Fragments of fundic gland polyp. Mild chronic gastritis. See comment. C. Ileum, biopsy; Fragments of small intestine mucosa, no pathologic diagnosis. SORIN/ 06/01/2023 COMMENT B. The results of immunohistochemistry for Helicobacter pylori will be reported separately ([id number]). MICROSCOPIC DESCRIPTION Slides are reviewed. GROSS DESCRIPTION A . Received in fixative is one container labeled with the patient's name and designated Duodenum biopsy. The specimen consists of multiple irregular fragments of light rich soft tissue that in aggregate measure 1.0 x 0.6 x 0.1 cm. The specimen is totally submitted in one cassette. B. Received in fixative is one container labeled with the patient's name and designated Gastric body polyp biopsy. The specimen consists of multiple irregular fragments of light rich soft tissue that in aggregate measure 0.4 x 0.3 x 0.1 cm. The specimen is totally submitted in one cassette. C. Received in fixative is one container labeled with the patient's name and designated Ileum biopsy. The specimen consists of multiple irregular fragments of light rich soft tissue that in aggregate measure 0.6 x 0.3 x 0.1 cm. The specimen is totally submitted in one cassette. Julee 05/31/23 TC:3 CPT: 82957f1
--- NOTE | 2023-05-31 06:30 | IMM_PTH ---
PATIENT: ASHLEY MÉNDEZ LOC: EN U#:[id number] AGE/SX: 62/F ROOM: RE05/31/[address]: Dr. Aj Andino DO : 1960 BED: DIS: 05/31/2023 SPEC #: [id number] RECD: 05/31/23 13:55 STATUS: ISAAC REQ #: [id number] BLAKE: 05/31/23 06:[address]: Aj Andino DEPT: IMMUNOHISTOCHEMISTRY RECD BY: Ryan Contreras ENTERED: 05/31/23 13:56 SP TYPE: IMMUNO OTHR DR: Dr. Mala Mcgrath MD Tissues: B - Stomach, NOS Procedures: H Pylori (initial) PHYSICIAN & INSTITUTION [place] [id number] SPECIMEN INFORMATION: Tissue Source: B - Gastric body polyp biopsy Clinical Info: High output ileostomy, Gastroparesis Specimen Number: [id number] CPT code: 12517 METHODOLOGY: Deparaffinized sections of prefer/formalin-fixed tissue or PAP/DQ stained slides are incubated with monoclonal/polyclonal antibodies/oligonucleotide probes. Localization is made via biotin free immunoperoxidase method. Appropriate controls are performed and reacted as expected. Results on target cell population are indicated in the following table: RESULTS: ANTIBODY / CLONE RESULT Block B H Pylori (polyclonal) negative These tests were developed and their performance characteristics determined by [facility]. They may not have been cleared or approved by the U.S. Food and Drug Administration. The FDA has determined that such clearance or approval is not necessary. The above immunohistochemical/dualISH markers are ordered and reviewed by the Pathologist. INTERPRETATION: B. Gastric body polyp, biopsy: Negative for Helicobacter pylori organisms. SJ:katie 06/01/2023
--- NOTE | 2023-05-31 06:42 | HP.PCM_ITS ---
History and Physical Date of Admission: 05/31/23 ASHLEY MÉNDEZ is a 62 F who presents to the office today for Previous workup: MRI 10.28.20 multiple heterogeneously enhancing lesions throughout liver. *[facility] established 11.19.20 for evaluation of gastroparesis, MCDONALD, previous diagnosis of ulcerative colitis s/p total colectomy with ileostomy placement r/t with multiple stomal revisions and relocation from right to left abdomen. ? Biochemical iron, ferritin, LDH, AFTP, CEA, CA19-9, CA125 ? Ammonia H39 ? Liver biopsy 12.19.20 noting marked macrovesicular steatosis. Stage II-III. No cirrhosis. OV 12.31. start ursodiol and Vit E, Dicyclomine PRN. ? Biochemical CMP noting renal dysfunction creatinine 1.98. OV 12.. feeling improvement r/t GI Sx; notes food triggers. Back and hip pain are prevalent concern, being managed by other providers. OV 1.18.22 feeling she is doing well r/t GI Sx. One episode of abdominal cramping and diarrhea for two days, this is an improvement and she is pleased. noted some body jerking which was reported to PCP who noted elevated ammonia. Notes ostomy to have bleeding and weeping, wound consult offered and would like to discuss with PCP. Will focus on psoriatic arthritis after she addresses her hip/back pain. ? Biochemical haptoglobin, ferritin, LDH, BNP, ceruloplasmin, ROSA ISELA, AFP, copper, ANCA, YOLANDA comp, ASM, AMA, hepatitis without pertinent abnormality. ? ESR H50, CRP H31.70 OV 3.7.22 doing well following orthopedic surgery. GI Sx of N/D and abdominal cramping have been a difficulty. Reglan PRN helps with upset stomach/nausea and abdominal cramping. Notes episodes of dizziness when standing. Rectal pressure noted and may be r/t phantom limb phenomenon. OV 5.2.22 continues with high-output ileostomy causing dehydration. Attempt gattex/octreotide, denied by insurance OV 09.19.21 Biochemical CBC, ESR, coagulation, CMP (renal dysfunction), ferritin, LDH, ceruloplasmin, ROSA ISELA, copper, IgG, ANCA, YOLANDA comp, AMA, ASM without pertinent abnormality. ? Ammonia H37, CRP H11, BERT IgA monoclonal with lambda light chain specificity. [facility] hospitalization presentation 10.15.21-10.19.21 for SOB, vomiting and diarrhea. Biochemical workup and imaging performed. Admitted for hydration and treatment of gastroenteritis and RALPH. CT abd/pel 10.15.21 homogeneous liver, normal spleen; s/p colectomy with LLQ ostomy; large fat filled parastomal hernia; single loop mildly prominent small bowel. Contact 11.04.21 with N/V, start Zofran, reglan, scopolamine patch and levsin. [facility] hospitalization 11.15.21-11.18.21 for abdominal pain, vomiting and diarrhea for a month. Biochemical workup and imaging performed and was admitted for management of RALPH and N/V/D. CT abd/pel 11.15.21 without acute abnormality. OV 12.16.21 with continued N/V/D with abdominal cramping without relief. She has required hospitalization for RALPH management r/t N/V/D. Start clonidine patch with approval from [facility] 01.08.22. Start reglan. US RUQ and elastography 12.29.21 hepatic measurement 16.3cm with fatty infiltration, stiffness 9.8 F2. [facility] nutrition with recommendation of Mediterranean diet. OV 03.13.22 reglan is helpful with nausea and abdominal cramping. High out-put ileostomy continues to be an issue. Start colestipol and Lomotil. Biochemical workup performed with concern for worsened kidney function and advised to present to [facility] ED. ? Biochemical CBC, CMP (renal dysfunction, worsened) with [facility] hospitalization 03.14.22-03.15.22 with receipt of IVF. Contact with recommendation of IVF administration as outpatient approximately every 2 weeks. Started 03.26.22. [facility] hospitalization 01.04.23-01.10.23 with high output ileostomy and dehydration, acute renal failure, COVID19. OV 12 N/V/D have been a difficulty. Continues with hyoscyamine, loperamide and Lomotil PRN; ursodiol, PPI, dicyclomine routine. PPI has been long-term use but denies issue with reflux. There has been an issue with her hip replacement. [facility] hospitalization 03.19.23-03.22.23 for management of high-output ileostomy causing dehydration and RALPH/CKDIII, DMII, CAD. Doing well with octreotide and PPI drip OV 03.31.23 feeling well since discharge. Lomotil being used BID. Continues with Lomotil BID and QD PRN, vit E, dicyclomine PRN taken weekly. [facility] Dr. 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 Does have evidence for slowly progressive chronic renal failure with other disease etiology. 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, continue to monitor 02.01.23 ROS Const Constitutional: No body ache, chills, excessive sweating, fatigue, fever(s), frequent falls, headache(s), snoring, weakness, sleep problems or change in appetite Eyes Eyes: No blurry vision, change in vision, floaters, eye pain or Light sensitiv ity ENT ENT: No abnormal hearing, ear or mastoid pain, tinnitus, balance problems, nosebleed/epistaxis, nasal congestion, headache(s), neck pain or sore throat Resp Respiratory: No cough, excessive phlegm production, shortness of breath, snoring or wheezing Cardio Cardiology: No chest pain at rest, chest pain with exertion, excessive sweating, shortness of breath, dyspnea on exertion, lightheadedness, orthopnea or palpitations Gastro GI: No abdominal pain, change in bowel habits, coffee ground emesis, constipation, cramping, diarrhea, nausea/dyspepsia or vomiting Genitourinary-Female: No burning urination, painful urination, urinary incontinence, urinary frequency, suprapubic fullness, side pain, abnormal vaginal bleeding or pelvic pain Musc Musculoskeletal: No abnormal gait, joint pain, back pain, limited range of motion, neck pain or numbness Skin Skin: No dry skin, redness, lesions, itchy eyes, rash or wounds Neuro Neurology: No abnormal gait, abnormal hearing, confusion, weakness, frequent falls, headache(s), memory loss or numbness Psych Psychiatric: No anxiety, No change in appetite, No confusion, No depression, No memory loss and No Thoughts of harming yourself/Others Endo Endocrine: No cold intolerance, excessive sweating, fatigue, flushing, heat intolerance, increased thirst/drinking or increased hunger Aller/Imm Allergy/Immunologic: No itchy eyes, seasonal allergy symptoms, hives or wheezing Jose/Lymp Hematologic/Lymphatic: No easy bleeding, easy bruising, enlarged lymph nodes or other Exam Const General: cooperative, comfortable and no acute distress Orientation: alert, awake and oriented x3 HENMT Head: normal to inspection, normocephalic and atraumatic Ears: hearing grossly normal bilaterally Neck Neck: normal visual inspection, full ROM and supple Neck mass: No Thyroid: thyroid normal Resp Effort & Inspection: normal respiratory effort and able to speak in complete sentences Auscultation: Bilateral: Clear to Auscultation Cardio Rate: regular rate Rhythm: regular rhythm Heart Sounds: S1 normal and S2 normal GI Palpation: soft (No palpable organomegaly) Neuro General: patient alert, patient awake, patient oriented x3, moves all extremities and CN's II-XI intact bilaterally Extrem General: no clubbing, cyanosis or edema Psych Appearance: grossly normal Mental Status: mental status grossly normal Mood: congruent mood Affect: normal affect Quality Reporting Tobacco Screening ([facility] 138) Smoking Status: Former smoker Assessment and Plan Assessment and Plan (1) High output ileostomy: Status: Resolved Plan: She responded very well in the hospital to PPI drip and octreotide drip.? We will try to get her on octreotide 140 mg subcutaneous injection for her high output ileostomy as there was no sign of infection the goal is to have about ileostomy.? We discussed a high output ileostomy diarrhea beginning only approximately 1800 kcal for her because the more she eats and the more fluid she will produce through her ileostomy. We will also get her on Gattex for short bowel syndrome.? I think in a long-term that is the best solution because octreotide can only last for so long for short gut and high output ileostomy.? Continue current management with colestipol and Lomotil therapy with strict glucose control. Will stop ursodiol and vitamin E as her LFTs and also fib 4 with her imaging is subsequently got better. We will continue her on Lomotil and cholestyramine. However we will get an image of her neck and chest region. (2) Gastroparesis: Status: Chronic Plan: Gastroparesis causing nausea vomiting with bile acid reflux esophagitis.? We will get her on colestipol therapy.? Hopefully this will bind up a lot of the excess bile.? We will also put her on Reglan therapy 5 mg p.o. 3 times daily. Medications: Changed From dicyclomine 20 mg PO DAILY Check with primary doctor To dicyclomine 20 mg (2 x 10 mg) PO BID PRN 30 caps 2RF abdominal pain Refilled diphenoxylate-atropine 2.5-0.025 mg (Lomotil) 1 TAB PO TID 90 tabs 2RF diarrhea cholestyramine (with sugar) 4 gram 4 grams PO BIDAC 60 ea 11RF pantoprazole (Protonix) 40 mg PO BID 60 tabs 11RF Discontinued hyoscyamine sulfate Discontinued Reason: Order Completed 0.125 mg PO Q6H PRN 60 tabs 2RF dyspepsia ursodiol Discontinued Reason: Order Completed 300 mg PO BID 180 caps 3RF EGD and colonoscopy to evaluate upper and lower GI tract for etiology of high output from her ileostomy. I have examined the patient and the H&P has been reviewed. There are no clinical changes since date of exam.
[2023-05-31 07:08] VITALS: BP 123/58; BP 163/75; PULSE 91; RESP 16; TEMP 36.2; O2SAT 92
--- NOTE | 2023-05-31 07:09 | OP.CCLET_ITS ---
05/31/2023 Mala Mcgrath MD [address] [place] [address] [place] [address] Re : Upper GI endoscopy procedure for [facility] Dear Dr. Mcgrath This procedure was performed on Wednesday, May 31, 2023. My impressions and recommendations are as follows: Impressions : - Normal esophagus. - Multiple gastric polyps. Resected and retrieved. - Erythematous mucosa in the gastric body. Biopsied. - No gross lesions in the second portion of the duodenum. Biopsied. Recommendations : - Discharge patient to home. - Resume previous diet. - Continue present medications. - Await pathology results. My findings are described in the full procedure note, which is enclosed. If I can be of further assistance, please feel free to contact me at . Sincerely, Aj Andino, 05/31/2023 7:08:07 AM This report has been signed electronically.
--- NOTE | 2023-05-31 07:09 | OP.EGD_ITS ---
Patient Name: Christelle Artis Procedure Date: 05/31/2023 6:25 AM Date of : 1960 Age: 62 Procedure: Upper GI endoscopy Indications: Dyspepsia, Failure to respond to medical treatment Providers: Aj Andino DO Medicines: Monitored Anesthesia Care Patient Profile: This is a 62 year old female. Refer to note in patient chart for documentation of history and physical. Patient has symptoms of chronic abdominal cramping and chronic global abdominal pain. Complications: No immediate complications. Procedure: Pre-Anesthesia Assessment: - Prior to the procedure, a History and Physical was performed, and patient medications and allergies were reviewed. The patient is competent. The risks and benefits of the procedure and the sedation options and risks were discussed with the patient. All questions were answered and informed consent was obtained. Patient identification and proposed procedure were verified by the physician in the pre-procedure area. Mental Status Examination: alert and oriented. Airway Examination: normal oropharyngeal airway and neck mobility. Respiratory Examination: clear to auscultation. CV Examination: normal. Prophylactic Antibiotics: The patient does not require prophylactic antibiotics. Prior Anticoagulants: The patient has taken no anticoagulant or antiplatelet agents. ASA Grade Assessment: III - A patient with severe systemic disease. After reviewing the risks and benefits, the patient was deemed in satisfactory condition to undergo the procedure. The anesthesia plan was to use monitored anesthesia care (MAC). Immediately prior to administration of medications, the patient was re-assessed for adequacy to receive sedatives. The heart rate, respiratory rate, oxygen saturations, blood pressure, adequacy of pulmonary ventilation, and response to care were monitored throughout the procedure. The physical status of the patient was re-assessed after the procedure. After obtaining informed consent, the endoscope was passed under direct vision. Throughout the procedure, the patient's blood pressure, pulse, and oxygen saturations were monitored continuously. The Colonoscope was introduced through the mouth, and advanced to the second part of duodenum. The upper GI endoscopy was accomplished without difficulty. The patient tolerated the procedure well. Scope In: 6:46:42 AM Scope Out: 6:51:48 AM Total Procedure Duration Time 0 hours 5 minutes 6 seconds Findings: The examined esophagus was normal. Multiple 2 mm sessile polyps with no bleeding and no stigmata of recent bleeding were found in the cardia, in the gastric fundus and in the gastric body. The polyp was removed with a cold snare. Resection and retrieval were complete. Verification of patient identification for the specimen was done. Estimated blood loss was minimal. Patchy mildly erythematous mucosa without bleeding was found in the gastric body. Biopsies were taken with a cold forceps for histology. Verification of patient identification for the specimen was done. Estimated blood loss was minimal. Biopsies were taken with a cold forceps for Helicobacter pylori testing. Verification of patient identification for the specimen was done. Estimated blood loss was minimal. No gross lesions were noted in the second portion of the duodenum. Biopsies were taken with a cold forceps for histology. Verification of patient identification for the specimen was done. Estimated blood loss was minimal. Impression: - Normal esophagus. - Multiple gastric polyps. Resected and retrieved. - Erythematous mucosa in the gastric body. Biopsied. - No gross lesions in the second portion of the duodenum. Biopsied. Recommendation: - Discharge patient to home. - Resume previous diet. - Continue present medications. - Await pathology results. Procedure Code(s): --- Professional --- 82809, Esophagogastroduodenoscopy, flexible, transoral; with removal of tumor(s), polyp(s), or other lesion(s) by snare technique 79510, 59,51, Esophagogastroduodenoscopy, flexible, transoral; with biopsy, single or multiple CPT copyright 2021 [employer]. All rights reserved. The codes documented in this report are preliminary and upon heel sprayer first review may be revised to meet current compliance requirements. Aj Andino DO 05/31/2023 7:08:07 AM This report has been signed electronically. Number of Addenda: 0 Note Initiated On: 05/31/2023 6:25 AM
[2023-05-31 07:10] VITALS: BP 123/75; BP 163/75; PULSE 87; RESP 16; O2SAT 95
--- NOTE | 2023-05-31 07:14 | OP.CCLET_ITS ---
05/31/2023 Mala Mcgrath MD [address] [place] [address] [place] [address] Re : Colonoscopy procedure for [facility] Dear Dr. Mcgrath This procedure was performed on Wednesday, May 31, 2023. My impressions and recommendations are as follows: Impressions : - Patent end ileostomy, characterized by healthy appearing mucosa. Biopsied. - The examination was otherwise normal. Recommendations : - Discharge patient to home. - Resume previous diet. - Continue present medications. - Await pathology results. - Repeat colonoscopy is recommended for surveillance. The colonoscopy date will be determined after pathology results from today's exam become available for review. My findings are described in the full procedure note, which is enclosed. If I can be of further assistance, please feel free to contact me at . Sincerely, Aj Andino, 05/31/2023 7:14:13 AM This report has been signed electronically.
--- NOTE | 2023-05-31 07:14 | OP.COLON_ITS ---
Patient Name: Christelle Artis Procedure Date: 05/31/2023 6:53 AM Date of : 1960 Age: 62 Procedure: Colonoscopy Indications: Chronic diarrhea Providers: Aj Andino DO Medicines: Monitored Anesthesia Care Patient Profile: This is a 62 year old female. Refer to note in patient chart for documentation of history and physical. Patient has symptoms of chronic abdominal cramping and chronic global abdominal pain. Last Colonoscopy: date unknown. Unable to locate last colonoscopy report. Complications: No immediate complications. Procedure: Pre-Anesthesia Assessment: - Prior to the procedure, a History and Physical was performed, and patient medications and allergies were reviewed. The patient is competent. The risks and benefits of the procedure and the sedation options and risks were discussed with the patient. All questions were answered and informed consent was obtained. Patient identification and proposed procedure were verified by the physician in the pre-procedure area. Mental Status Examination: alert and oriented. Airway Examination: normal oropharyngeal airway and neck mobility. Respiratory Examination: clear to auscultation. CV Examination: normal. Prophylactic Antibiotics: The patient does not require prophylactic antibiotics. Prior Anticoagulants: The patient has taken no anticoagulant or antiplatelet agents. ASA Grade Assessment: III - A patient with severe systemic disease. After reviewing the risks and benefits, the patient was deemed in satisfactory condition to undergo the procedure. The anesthesia plan was to use monitored anesthesia care (MAC). Immediately prior to administration of medications, the patient was re-assessed for adequacy to receive sedatives. The heart rate, respiratory rate, oxygen saturations, blood pressure, adequacy of pulmonary ventilation, and response to care were monitored throughout the procedure. The physical status of the patient was re-assessed after the procedure. After I obtained informed consent, the scope was passed under direct vision. Throughout the procedure, the patient's blood pressure, pulse, and oxygen saturations were monitored continuously. The Colonoscope was introduced through the anus and advanced to the surgical stoma. The colonoscopy was performed without difficulty. The patient tolerated the procedure well. The quality of the bowel preparation was good. Anatomical landmarks were photographed. Scope In: 6:55:49 AM Scope Out: 7:00:25 AM Total Procedure Duration Time 0 hours 4 minutes 36 seconds Findings: The digital exam was normal. There was evidence of a patent end ileostomy found in the ileostomy. This was characterized by healthy appearing mucosa. This was not traversed. This was biopsied with a cold forceps for histology. Verification of patient identification for the specimen was done. Estimated blood loss was minimal. The exam was otherwise without abnormality. Impression: - Patent end ileostomy, characterized by healthy appearing mucosa. Biopsied. - The examination was otherwise normal. Recommendation: - Discharge patient to home. - Resume previous diet. - Continue present medications. - Await pathology results. - Repeat colonoscopy is recommended for surveillance. The colonoscopy date will be determined after pathology results from today's exam become available for review. Procedure Code(s): --- Professional --- 62357, Colonoscopy, flexible; with biopsy, single or multiple CPT copyright 2021 [employer]. All rights reserved. The codes documented in this report are preliminary and upon human resource analyst review may be revised to meet current compliance requirements. Aj Andino DO 05/31/2023 7:14:13 AM This report has been signed electronically. Number of Addenda: 0 Note Initiated On: 05/31/2023 6:53 AM
[2023-05-31 07:15] VITALS: BP 137/52; BP 163/75; PULSE 88; RESP 16; TEMP 36.1; O2SAT 93
[2023-05-31 07:34] VITALS: BP 163/75
== END 2023-05-31 08:06 | disposition home or self-care (01) ==
LOC: EN 05:11 → AC 05:13
PROVIDERS: PCP Internal Medicine; Referring Provider Internal Medicine; Visit Provider Internal Medicine Gastroenterology
PROC: 0DJD8ZZ Inspection of Lower Intestinal Tract, Via Natural or Artificial Opening Endoscopic (ICD-10-PCS; CPT 45378; principal; 2023-05-31 06:25)
DX: K29.50 Unspecified chronic gastritis without bleeding (principal); Z93.2 Ileostomy status; J44.9 Chronic obstructive pulmonary disease, unspecified; Z79.4 Long term (current) use of insulin; E11.22 Type 2 diabetes mellitus with diabetic chronic kidney disease; N18.30 Chronic kidney disease, stage 3 unspecified; K31.7 Polyp of stomach and duodenum; F41.9 Anxiety disorder, unspecified; F32.A Depression, unspecified; G47.33 Obstructive sleep apnea (adult) (pediatric); I12.9 Hypertensive chronic kidney disease with stage 1 through stage 4 chronic kidney disease, or unspecified chronic kidney disease; E78.00 Pure hypercholesterolemia, unspecified; K21.9 Gastro-esophageal reflux disease without esophagitis; K31.89 Other diseases of stomach and duodenum; Z79.51 Long term (current) use of inhaled steroids; Z79.82 Long term (current) use of aspirin; Z79.899 Other long term (current) drug therapy; Z87.891 Personal history of nicotine dependence; Z86.16 Personal history of COVID-19; Z95.5 Presence of coronary angioplasty implant and graft
CPT/HCPCS: 45380; 43251; 43239; 82962; 88305; 88342; J7120; J2405

== ENCOUNTER 2023-06-01 12:29 | Outpatient (CLI) | payer MEDICARE, MEDICAID, SELFPAY ==
[2023-02-18 12:34] VITALS: BMI 30.9
[2023-06-01] MEDS: 0.9% Normal Saline (1000mL) 1,000 ML 999 ML IV ×2 (12:48→13:52)
[2023-06-01] MEDS: 0.9% NaCl Peripheral Flush Adult/Peds IV (12:48)
[2023-06-01 12:50] VITALS: BP 146/62; PULSE 71; RESP 16; TEMP 36.2; O2SAT 94; BMI 30.8
[2023-06-01 15:09] VITALS: BP 153/62; PULSE 72; RESP 16; TEMP 36.6; O2SAT 95
== END 2023-06-01 12:30 | disposition home or self-care (01) ==
LOC: MEDOUTP 12:30
PROVIDERS: PCP Internal Medicine; Referring Provider Internal Medicine Gastroenterology; Visit Provider Internal Medicine Gastroenterology
DX: E86.0 Dehydration (principal); R19.8 Other specified symptoms and signs involving the digestive system and abdomen
CPT/HCPCS: 96360; 96361; J7030; A4216

== ENCOUNTER 2023-06-04 10:02 | Outpatient (CLI) | payer MEDICARE, MEDICAID, SELFPAY ==
[2023-02-18 12:34] VITALS: BMI 30.9
[2023-06-04] MEDS: 0.9% Normal Saline (1000mL) 1,000 ML 999 ML IV ×2 (10:19→11:36)
[2023-06-04] MEDS: 0.9% NaCl Peripheral Flush Adult/Peds IV (10:19)
[2023-06-04 10:22] VITALS: BP 126/60; PULSE 70; RESP 16; O2SAT 96; BMI 30.8
[2023-06-04 12:55] VITALS: BP 165/63; PULSE 66; RESP 16; O2SAT 97
== END 2023-06-04 10:03 | disposition home or self-care (01) ==
LOC: MEDOUTP 10:02
PROVIDERS: PCP Internal Medicine; Referring Provider Internal Medicine Gastroenterology; Visit Provider Internal Medicine Gastroenterology
DX: E86.0 Dehydration (principal); R19.8 Other specified symptoms and signs involving the digestive system and abdomen
CPT/HCPCS: 96360; 96361; J7030; A4216

== ENCOUNTER 2023-06-08 11:51 | Outpatient (CLI) | payer MEDICARE, MEDICAID, SELFPAY ==
[2023-02-18 12:34] VITALS: BMI 30.9
[2023-06-08] MEDS: 0.9% Normal Saline (1000mL) 1,000 ML 999 ML IV ×2 (12:19→13:35)
[2023-06-08] MEDS: 0.9% NaCl Peripheral Flush Adult/Peds IV (12:19)
[2023-06-08 12:20] VITALS: BP 122/55; PULSE 64; RESP 16; TEMP 36.4; O2SAT 95; BMI 31.3
[2023-06-08 14:53] VITALS: BP 155/75; PULSE 65; RESP 16; TEMP 36.5; O2SAT 93
== END 2023-06-08 11:52 | disposition home or self-care (01) ==
LOC: MEDOUTP 11:51
PROVIDERS: PCP Internal Medicine; Referring Provider Internal Medicine Gastroenterology; Visit Provider Internal Medicine Gastroenterology
DX: E86.0 Dehydration (principal); R19.8 Other specified symptoms and signs involving the digestive system and abdomen
CPT/HCPCS: 96360; 96361 ×2; J7030; A4216

== ENCOUNTER 2023-06-11 12:04 | Outpatient (CLI) | payer MEDICARE, MEDICAID, SELFPAY ==
[2023-02-18 12:34] VITALS: BMI 30.9
[2023-06-11] MEDS: 0.9% NaCl Peripheral Flush Adult/Peds IV (12:18)
[2023-06-11 12:24] VITALS: BP 171/60; PULSE 75; RESP 16; TEMP 36.3; O2SAT 97
[2023-06-11] MEDS: 0.9% Normal Saline (1000mL) 1,000 ML 999 ML IV ×2 (12:26→13:34)
[2023-06-11 14:49] VITALS: BP 152/66; PULSE 80
== END 2023-06-11 12:05 | disposition home or self-care (01) ==
LOC: MEDOUTP 12:04
PROVIDERS: PCP Internal Medicine; Referring Provider Internal Medicine Gastroenterology; Visit Provider Internal Medicine Gastroenterology
DX: E86.0 Dehydration (principal); R19.8 Other specified symptoms and signs involving the digestive system and abdomen
CPT/HCPCS: 96360; 96361; J7030; A4216

== ENCOUNTER 2023-06-15 11:44 | Outpatient (CLI) | payer MEDICARE, MEDICAID, SELFPAY ==
[2023-02-18 12:34] VITALS: BMI 30.9
[2023-06-15 12:05] VITALS: BP 117/64; PULSE 70; RESP 16; TEMP 36.2; O2SAT 94; BMI 30.2
[2023-06-15] MEDS: 0.9% Normal Saline (1000mL) 1,000 ML 999 ML IV ×2 (12:08→13:19)
[2023-06-15] MEDS: 0.9% NaCl Peripheral Flush Adult/Peds IV (12:08)
== END 2023-06-15 11:45 | disposition home or self-care (01) ==
LOC: MEDOUTP 11:45
PROVIDERS: PCP Internal Medicine; Referring Provider Internal Medicine Gastroenterology; Visit Provider Internal Medicine Gastroenterology
DX: E86.0 Dehydration (principal); R19.8 Other specified symptoms and signs involving the digestive system and abdomen
CPT/HCPCS: 96360; 96361; J7030; A4216

== ENCOUNTER → 2023-06-16 | Outpatient (CLI) | payer MEDICARE, MEDICAID, SELFPAY ==
[2023-02-18 12:34] VITALS: BMI 30.9
[2023-06-16 15:07] LABS: Absolute Lymphocyte Count 2.63 X10^3/uL (0.83-4.51); Absolute Neutrophil Count 4.5 X10^3/uL (2.0-7.7); Basophil# 0.07 X10^3/uL; Basophil% 0.9 % (0-1); Eosinophil# 0.36 X10^3/uL; Eosinophils% 4.4 % (0-5); Hematocrit 37.5 % (37-47); Hemoglobin 11.3 g/dL (12.0-15.0); Lymphocyte # 2.63 X10^3/ul (0.83-4.51); Lymphocyte % 32.5 % (19-41); Mean Corp Hgb Conc 30.1 g/dL (32-36); Mean Corpuscular Hgb 26.7 pg (27.0-32.0); Mean Corpuscular Volume 88.4 fL (81-99); Mean Platelet Vol. 12.3 fl (6.2-12.0); Monocyte# 0.48 X10^3/uL; Monocyte% 5.9 % (0-10); NRBC Flagged by Analyzer 0 % (0-5); Neutrophil # 4.48 X10^3/uL (2.7-7.7); Neutrophil % 55.4 % (47-70); Platelet Count 175 K/mm3 (150-450); RBC Distribution Width CV 16.1 % (11.6-14.6); RBC Distribution Width SD 51.2 fl (35.1-43.9); Red Blood Count 4.24 M/mm3 (4.2-5.4); White Blood Count 8.1 K/mm3 (4.4-11.0)
[2023-06-16 15:20] LABS: ALB/GLOB Ratio 0.7 RATIO (0.9-2.4); AST(SGOT) 21 U/L (15-37); Alanine Aminotransfer ALT/SGPT 20 U/L (13-56); Albumin, Serum 3.1 g/dL (3.2-5.0); Alkaline Phosphatase 174 U/L (45-117); Anion Gap 2 (5-15); BUN 29 mg/dL (7-18); BUN/Creat Ratio 17.5 RATIO (10-20); Calcium,Total 9.1 mg/dL (8.5-10.1); Chloride 111 mmol/L (98-107); Creatinine, Serum 1.66 mg/dL (0.55-1.02); EST Glomerular Filtration Rate 33 mL/min (>60); Est Glom Filt Rate - Afr Amer 40 mL/min (>60); Globulin 4.2 g/dL (2.2-4.2); Glucose 231 mg/dL (74-106); Potassium 5.4 mmol/L (3.5-5.1); Protein, Total 7.3 g/dL (6.4-8.2); Sodium Level 137 mmol/L (136-145)
== END | disposition home or self-care (01) ==
LOC: BIMLAB 12:19
PROVIDERS: PCP Internal Medicine; Referring Provider Internal Medicine; Visit Provider Internal Medicine
DX: E66.09 Other obesity due to excess calories (principal); Z68.31 Body mass index [BMI] 31.0-31.9, adult
CPT/HCPCS: 36415; 80053; 85025

== ENCOUNTER 2023-06-18 10:40 | Outpatient (CLI) | payer MEDICARE, MEDICAID, SELFPAY ==
[2023-02-18 12:34] VITALS: BMI 30.9
[2023-06-18] MEDS: 0.9% NaCl Peripheral Flush Adult/Peds IV (11:00)
[2023-06-18] MEDS: 0.9% Normal Saline (1000mL) 1,000 ML 999 ML IV ×2 (11:02→12:12)
[2023-06-18 11:03] VITALS: BP 161/62; PULSE 71; RESP 16; TEMP 36.2; O2SAT 95; BMI 32.1
[2023-06-18 13:25] VITALS: BP 170/57; PULSE 67; RESP 16
== END 2023-06-18 10:41 | disposition home or self-care (01) ==
LOC: MEDOUTP 10:40
PROVIDERS: PCP Internal Medicine; Referring Provider Internal Medicine Gastroenterology; Visit Provider Internal Medicine Gastroenterology
DX: E86.0 Dehydration (principal); R19.8 Other specified symptoms and signs involving the digestive system and abdomen
CPT/HCPCS: 96361; 96360; J7030; A4216

== ENCOUNTER 2023-06-22 11:54 | Outpatient (CLI) | payer MEDICARE, MEDICAID, SELFPAY ==
[2023-02-18 12:34] VITALS: BMI 30.9
[2023-06-22] MEDS: 0.9% Normal Saline (1000mL) 1,000 ML 999 ML IV ×2 (12:14→13:21)
[2023-06-22] MEDS: 0.9% NaCl Peripheral Flush Adult/Peds IV (12:14)
[2023-06-22 12:16] VITALS: BP 155/78; PULSE 82; RESP 16; TEMP 36.6; O2SAT 97; BMI 31.9
== END 2023-06-22 11:55 | disposition home or self-care (01) ==
LOC: MEDOUTP 11:56
PROVIDERS: PCP Internal Medicine; Referring Provider Internal Medicine Gastroenterology; Visit Provider Internal Medicine Gastroenterology
DX: E86.0 Dehydration (principal); R19.8 Other specified symptoms and signs involving the digestive system and abdomen
CPT/HCPCS: 96360; 96361; J7030; A4216

== ENCOUNTER 2023-06-25 11:42 | Outpatient (CLI) | payer MEDICARE, MEDICAID, SELFPAY ==
[2023-02-18 12:34] VITALS: BMI 30.9
[2023-06-25 11:50] VITALS: BP 140/64; PULSE 72; RESP 16; TEMP 35.5; O2SAT 96
[2023-06-25] MEDS: 0.9% NaCl Peripheral Flush Adult/Peds IV (11:58)
[2023-06-25] MEDS: 0.9% Normal Saline (1000mL) 1,000 ML 999 ML IV ×2 (12:00→13:11)
[2023-06-25 14:24] VITALS: BP 155/68; PULSE 93; RESP 16; TEMP 36.2
== END 2023-06-25 11:43 | disposition home or self-care (01) ==
LOC: MEDOUTP 11:42
PROVIDERS: PCP Internal Medicine; Referring Provider Internal Medicine Gastroenterology; Visit Provider Internal Medicine Gastroenterology
DX: E86.0 Dehydration (principal); R19.8 Other specified symptoms and signs involving the digestive system and abdomen
CPT/HCPCS: 96360; 96361; J7030; A4216

== ENCOUNTER 2023-06-29 11:13 | Outpatient (CLI) | payer MEDICARE, MEDICAID, SELFPAY ==
[2023-02-18 12:34] VITALS: BMI 30.9
[2023-06-29 12:12] VITALS: BP 140/64; PULSE 64; RESP 16; TEMP 35.8; O2SAT 95; BMI 31.9
[2023-06-29] MEDS: 0.9% NaCl Peripheral Flush Adult/Peds IV (12:19)
[2023-06-29] MEDS: 0.9% Normal Saline (1000mL) 1,000 ML 999 ML IV ×2 (12:19→13:22)
[2023-06-29 14:41] VITALS: BP 181/81; PULSE 69; RESP 16; TEMP 35.7; O2SAT 97
== END 2023-06-29 11:14 | disposition home or self-care (01) ==
LOC: MEDOUTP 11:14
PROVIDERS: PCP Internal Medicine; Referring Provider Internal Medicine Gastroenterology; Visit Provider Internal Medicine Gastroenterology
DX: E86.0 Dehydration (principal); R19.8 Other specified symptoms and signs involving the digestive system and abdomen
CPT/HCPCS: 96360; 96361; J7030; A4216

== ENCOUNTER 2023-06-30 08:58 | Day surgery (SDC) | payer MEDICARE, MEDICAID, SELFPAY ==
[2023-02-18 12:34] VITALS: BMI 30.9
[2023-06-30] VITALS (7 sets, daily range): BP systolic 152–173; BP diastolic 60–80; PULSE 67–75; RESP 16; TEMP 36.3–37.2; O2SAT 94–97; BMI 32.3
[2023-06-30] MEDS: Bupivacaine Mpf 0.5% 30 ML VIAL ×2 (09:26→11:27)
[2023-06-30] MEDS: Lactated Ringers 1,000 ML 15 ML IV (10:04)
[2023-06-30 10:05] LABS: Bedside Glucose 212 mg/dL (74-106)
--- NOTE | 2023-06-30 10:52 | HP.PCM_ITS ---
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 Internet Required: No Is patient in pain?: No Allergies ciprofloxacin Allergy (Intermediate, Verified 06/15/23 14:55) Swellingcinnamon [Cinnamon] Allergy (Verified 06/15/23 14:55) AnaphylaxisInfluenza Virus Vaccines Allergy (Verified 06/15/23 14:55) Shortness of breathliraglutide [From Victoza] Allergy (Verified 06/15/23 14:55) Anaphylaxismetformin [From Glucophage] Allergy (Verified 06/15/23 14:55) NEEDS FOLLOW-UPmetronidazole [From Flagyl] Allergy (Verified 06/15/23 14:55) HivesMetronidazole HCl [From Flagyl] Allergy (Verified 06/15/23 14:55) HivesPenicillins Allergy (Verified 06/15/23 14:55) HivesSulfa (Sulfonamide Antibiotics) Allergy (Verified 06/15/23 14:55) Hivesaripiprazole [From Abilify] Adverse Reaction (Verified 06/15/23 14:55) hallucinationscodeine Adverse Reaction (Verified 06/15/23 14:55) Stops Ileostomymetformin HCl [From Glucophage] Adverse Reaction (Verified 06/15/23 14:55) Nausearanolazine Adverse Reaction (Verified 06/15/23 14:55) Nausea/Vom/FrfbbfboOpuuygy-PPF-ZyE Reductase Inhibitor [Tfwsgtd-Coa-Lyu Reductase Inhibitor] Adverse Reaction (Verified 06/15/23 14:55) Nausea/joints ache Medications aspirin 81 mg tablet,delayed release 81 mg PO DAILY heart health 04/08/21 [History Confirmed 06/15/23] duloxetine 30 mg capsule,delayed release 30 mg PO DAILY depression 10/06/21 [History Confirmed 06/15/23] Wheel Chair 11/15/21 [History Confirmed 06/15/23] blood sugar diagnostic (True Metrix Glucose Test Strip) 11/15/21 [History Confirmed 06/15/23] blood-glucose meter,continuous (Dexcom G6 Compensation Business Partner) 11/15/21 [History Confirmed 06/15/23] pen needle, diabetic 32 gauge x 5/32 (BD Ultra-Fine Key Pen Needle) 11/15/21 [History Confirmed 06/15/23] nitroglycerin 0.4 mg sublingual tablet 0.4 mg sublingual Q5-15M PRN chest pain #25 tabs 11/20/21 [Rx Confirmed 06/15/23] ostomy supplies #1 ea 02/13/22 [Rx Confirmed 06/15/23] atorvastatin 80 mg tablet 80 mg PO QHS CHOLESTEROL LOWERING #90 tabs 08/04/22 [Rx Confirmed 06/15/23] blood-glucose transmitter (Dexcom G6 Transmitter device) #1 ea 08/07/22 [Rx Confirmed 06/15/23] metoprolol tartrate 50 mg tablet 50 mg PO .COMPLEX blood pressure 09/02/22 [History Confirmed 06/15/23] Handicap Placard #1 ea 09/16/22 [Rx Confirmed 06/15/23] isosorbide dinitrate 30 mg tablet 30 mg PO BID heart #60 tabs 12/11/22 [Rx Confirmed 06/15/23] insulin pump cart,automated,BT (Omnipod 5 G6 Pods (Gen 5) subcutaneous cartridge) #45 ea 01/13/23 [Rx Confirmed 06/15/23] Juanita Cohesive Seal 2 diameter #15 ea 01/18/23 [Rx Confirmed 06/15/23] Esenta Sting Free Adhesive Remover Wipe - #15 ea 01/18/23 [Rx Confirmed 06/15/23] Esenta Sting Free Skin Barrier [place], 50 mL - #15 ea 01/18/23 [Rx Confirmed 06/15/23] Esteem + Convex One-Piece Drainable Pre-Cut Pouch w/visiClose, Durahesive, 12 panel [place], 1 03/15 #15 ea 01/18/23 [Rx Confirmed 06/15/23] clopidogrel 75 mg tablet 75 mg PO DAILY heart health #90 tabs 02/04/23 [Rx Confirmed 06/15/23] blood sugar diagnostic (True Metrix Glucose Test Strip) #100 ea 02/08/23 [Rx Confirmed 06/15/23] buprenorphine 15 mcg/hour weekly transdermal patch 1 patch transdermal Q7D pain 02/10/23 [History Confirmed 06/15/23] melatonin 5 mg tablet 5 mg PO HS sleep 02/10/23 [History Confirmed 06/15/23] cyclobenzaprine 10 mg tablet 10 mg PO TID PRN muscle spasm #30 tabs 02/24/23 [Rx Confirmed 06/15/23] benzonatate 200 mg capsule 200 mg PO BID PRN cough #30 caps 03/10/23 [Rx Confirmed 06/15/23] trazodone 50 mg tablet 50 mg PO QHS sleep 03/18/23 [History Confirmed 06/15/23] cholestyramine (with sugar) 4 gram powder for susp in a packet 4 g PO BIDAC stool #60 ea 03/31/23 [Rx Confirmed 06/15/23] diphenoxylate-atropine 2.5 mg-0.025 mg tablet (Lomotil) 1 tab PO TID diarrhea #90 tabs 03/31/23 [Rx Confirmed 06/15/23] dapagliflozin propanediol 10 mg tablet (Farxiga) 10 mg PO DAILY diabetes #90 tabs 04/03/23 [Rx Confirmed 06/15/23] insulin lispro 200 unit/mL (3 mL) subcutaneous pen (Humalog KwikPen U-200 Insulin) 160 unit (0.8 mL) subcut DAILY diabetes #72 mL 04/21/23 [Rx Confirmed 06/15/23] metoprolol tartrate 25 mg tablet 25 mg PO .COMPLEX bp #180 tabs 04/29/23 [Rx Confirmed 06/15/23] pantoprazole 40 mg tablet,delayed release (Protonix) 40 mg PO BID GERD #60 tabs 04/29/23 [Rx Confirmed 06/15/23] albuterol sulfate 90 mcg/actuation aerosol inhaler 2 puff inhalation BID PRN SOB 05/01/23 [History Confirmed 06/15/23] duloxetine 60 mg capsule,delayed release 60 mg PO DAILY depression 05/01/23 [History Confirmed 06/15/23] lamotrigine 200 mg tablet 200 mg PO DAILY 05/01/23 [History Confirmed 06/15/23] dicyclomine 10 mg capsule 10 mg PO BID 30 days #60 caps 05/03/23 [Rx Confirmed 06/15/23] pregabalin 75 mg capsule 75 mg PO BID #56 caps 06/04/23 [Rx Confirmed 06/15/23] blood-glucose sensor (Dexcom G6 Sensor device) #9 ea 06/10/23 [Rx Confirmed 06/15/23] ursodiol 300 mg capsule 300 mg PO BID 06/15/23 [History Confirmed 06/15/23] [facility] Medical History Acute kidney injury Ambulates with cane Anxiety Anxiety and depression Arthritis Arthritis Avascular necrosis of bone of left hip Back pain BiPAP (biphasic positive airway pressure) dependence BMI 31.0-31.9,adult CAD (coronary artery disease) Cardiology follow-up encounter Cellulitis, abdominal wall Chronic back pain Chronic diastolic (congestive) heart failure Chronic narcotic use Chronic pain Chronic respiratory failure Chronic respiratory failure with hypoxia, on home O2 therapy CKD (chronic kidney disease), stage IV Congestive heart failure (CHF) COPD (chronic obstructive pulmonary disease) Depression Depression with anxiety Diabetic gastroparesis Dietary restriction DM2 (diabetes mellitus, type 2) Elevated anti-tissue transglutaminase (tTG) IgA level Fatty liver FCHL (familial combined hyperlipidemia) Former smoker Gastric reflux High cholesterol High output ileostomy History of CAD (coronary artery disease) History of COVID-19 History of echocardiogram History of pain when walking History of renal disease Hx of diabetic gastroparesis Hyperlipidemia Hypertension Ileostomy present Insulin dependent diabetes mellitus Left shoulder pain Liver mass Loss of hearing Malaise and fatigue Menieres disease MGUS (monoclonal gammopathy of unknown significance) Migraine headache Myoclonic jerking Non-alcoholic fatty liver disease Nonalcoholic steatohepatitis Obesity Obstructive sleep apnea Post-menopausal Psoriasis Rash Rheumatoid arthritis Secondary pulmonary arterial hypertension Short bowel syndrome Sleep apnea Smoking greater than 20 pack years Tremor Type 2 diabetes mellitus with diabetic polyneuropathy Ulcerative colitis Vitamin B12 deficiency Vitamin D deficiency Walker as ambulation aid Wears glasses Surgical History H/O colectomy H/O coronary artery bypass surgery (05/18/12) H/O sinus surgery H/O total hysterectomy history closed fissure History of appendectomy History of History of cardiac catheterization History of cholecystectomy History of coronary artery stent placement (01/12/18) History of coronary artery stent placement ileostomy Ileostomy status left thumb surgery Status post total hip replacement, left Family History Mother CVA (cerebral vascular accident) DiabetesBrother Heart disease of CAD at 65 Myocardial infarction PancreatitisFather Cancer lymphomia LymphomaGrandmother Myocardial infarction of [place] in her 70sSister COPD (chronic obstructive pulmonary disease) Social History household members: none Smoking Status: Former smoker quit date: 03/08/12 how long ago did patient quit smoking: quit in 2012; 0.5-1ppd x 30yrs alcohol intake: never substance use type: does not use diet: diabetic caffeine: No eating out: 1-3 times/week what type of physical activity do you participate in: none seatbelt use: always do you feel safe at home: Yes HPI HPI HPI: The patient is a 62-year-old female here for chest port placement. The patient has chronic infusions twice a week for high output ileostomy. The patient is running out of venous access and requires port for reliable venous access. ROS General General: Yes fatigue; No weight change, appetite, colon cancer, breast cancer or weakness HEENT HEENT: No difficulty swallowing, eye injury, eye surgery, swollen glands or hoarseness Endo Endocrine: Yes diabetes mellitus; No thyroid disease, thyroid cancer, Hair loss, heat intolerance or cold intolerance Skin Skin: Yes rash; No changing moles Breast Breast: No left breast lump, right breast lump, nipple discharge, breast pain, abnormal mammogram, abnormal US or breast enlargement Musc Musculoskeletal: Yes back problems, arthritis and rheumatoid arthritis; No gout or joint pain Cardio Cardiovascular: Yes heart disease, high blood pressure and heart stent; No murmur, pacemaker, atrial fibrillation, heart attack, palpitations, shortness of breat with exertion or chest pain Psych Psychiatric: Yes depression and anxiety; No hearing voices Resp Respiratory: Yes shortness of breath, Yes sleep apnea, No cough, Yes COPD, No asthma, No emphysema and No wheezing Gastro Gastrointestinal: Yes abdominal pain, Yes nausea or vomiting, Yes diarrhea, No constipation, No blood in stool, No acid reflux, No hemorrhoids, No ulcers, Yes gallbladder problem and No black,tarry stools Jose Hematologic: Yes blood thinners, No blood disorders, No bleeding, No anemia and No blood clots Neuro Neurologic: No system reviewed and no additional complaints, except as do cumented, No as per HPI, No abnormal gait, No abnormal hearing, No abnormal movements, No abnormal speech, No behavioral changes, No burning sensations, No confusion, No convulsions, No disequilibrium, No dizziness, No localized weakness, No frequent falls, No headache(s), No lack of coordination, No loss of vision, No memory loss, Yes numbness, No other visual disturbances, No radicular pain, No restless legs, No sensory deficit, No syncope, Yes tingling, No tremor(s), No weakness and No other Exam Const General: cooperative Orientation: alert and oriented x3 HENMT Head: normal to inspection Neck Neck: normal visual inspection and full ROM Chest Chest palpation & inspection: normal inspection of the chest Resp Effort & Inspection: normal respiratory effort Auscultation: clear to auscultation bilaterally Cardio Rate: regular rate Rhythm: regular rhythm GI Inspection: non-distended Palpation: soft and nontender Skin General: no rashes or lesions noted Neuro General: patient alert and patient oriented x3 Extrem General: full ROM Psych Appearance: grossly normal Mental Status: mental status grossly normal Assessment and Plan Assessment and Plan (1) Encounter for insertion of venous access port: Status: Acute Plan: The patient is here for vascular access port due to dehydration from her high output ileostomy. I discussed right chest port placement with the patient in detail. I discussed the risks including not limited to bleeding, infection, pneumothorax. I also discussed the ongoing risks of DVT or line infection. Patient understands the risks and is when to proceed. She will hold her aspirin and Plavix for 5 days prior to surgery. Timbo Deluna MD Pager: [facility] [address] [place] [address], [address] [place] [address] Office: I have examined the patient and the H&P has been reviewed. There are no clinical changes since date of exam.
[2023-06-30] MEDS: Clindamycin 900 MG/50 ML BAG 75 MG IV (11:07)
[2023-06-30] MEDS: Lidocaine 1% (20 ml mdv) 20 ML Vial (11:28)
--- NOTE | 2023-06-30 11:44 | OP.PCM_ITS ---
Report of Operation Date of Procedure: 06/30/23 Pre-Operative Diagnosis: Need for vascular access Post-Operative Diagnosis: Same Surgery/Procedure Performed:: Ultrasound and fluoroscopy guided right chest port placement utilizing right IJ Type of Anesthesia: Local MAC Specimen's removed: None Estimated Blood Loss (mL): 5 Description of Procedure: After obtaining informed consent patient was brought back to the operating room MAC anesthesia was induced and the right chest and neck were prepped in normal sterile fashion. Ultrasound was used to evaluate both IJs and the right IJ was selected. Next, using a needle, the right IJ was accessed and a guidewire was passed on into the superior vena cava under fluoroscopy guidance. A small incision was made over the puncture site and the dilator introducer was placed over the guidewire. Next this was capped and the pocket was made for the port. 1% lidocaine with epinephrine was injected in the proposed port site. An incision was made with scalpel. Electrocautery was used to make a pocket under the skin and subcutaneous tissue. Hemostasis was obtained. Next, the catheter was tunneled up to the neck incision site and placed through the introducer. The peel-away introducer was removed and the position of the catheter was confirmed on fluoroscopy. Next, the catheter was trimmed and attached to the port with the locking device. Interrupted 2-0 Vicryl sutures were used to anchor the port to the chest wall and then the port was placed inside the pocket. The pocket was then flushed with saline and the port irrigated with saline. There was good blood return and the port flushed easily. The skin was closed with subcutaneous interrupted 3-0 Vicryl sutures. A single 3-0 Vicryl sutures placed under the skin at the neck incision site. Steri-Strips were placed. Next the port was accessed and the catheter was aspirated and flushed. Next the catheter was flushed with 3.5 cc of heparinized saline and then clamped and capped. Dressings were applied. Patient tolerated procedure well, was taken to PACU in stable condition. Chest x-ray will be obtained. Grafts/Implants Used: 8 [place] [employer]
--- NOTE | 2023-06-30 11:46 | DCINST_ITS ---
Discharge Instructions Procedure Port-A-Cath Diet Discharge Diet: Light diet - advance as tolerated (Pain medication may cause nausea. You should typically eat light foods as you take your pain medication.) Activity Discharge Activity: Return to Normal Activity and May Shower (with your bandage in place in 1-2 days after surgery. DO NOT SHOWER WHEN YOUR PORT IS ACCESSED.) Lifting Restrictions: None Dressing / Incision Call your doctor if your incision/area has: Continuous Slow Oozing, Sudden Increased Bleeding, Increased Pain/ Swelling, Increased Redness and Foul Smelling Discharge Call your doctor if you observe: Fever of 101 or Higher Remove Dressing in: 3 days (Infusion center should change dressing after infusion) Cleanse incision/area with: Soap & Water Additional Dressing/Incision Instructions:: Alternate ibuprofen and Tylenol for pain Resume Plavix tomorrow Follow Up Care Please Follow Up With: Timbo Deluna MD When: as needed [phone] Test Results: Test results from this visit will be discussed in further detail at your follow- up appointment, if applicable. Discharge Plan Admission Attending Provider: Timbo Deluna Primary Care Provider: Mala Mcgrath Discharge Orders/Prescriptions Prescriptions: No Action duloxetine 30 mg capsule,delayed release(DR/EC) 30 mg PO DAILY Patient Comments: pt takes , 30 mg cap & 60 mg cap to equal 90 mg cap nitroglycerin 0.4 mg tablet, sublingual 0.4 mg sublingual Q5-15M PRN (Reason: chest pain) Qty: 25 6RF Rx Instructions: do not exceed 3 doses per episode buprenorphine 15 mcg/hour patch weekly 1 patch transdermal Q7D Patient Comments: changes on wednesday melatonin 5 mg tablet 5 mg PO HS (DME) Handicap Placard See Rx Instructions .ROUTE .MEDSUPPLY Qty: 1 0RF Rx Instructions: As directed, length of time 3 years (DME) True Metrix Glucose Test Strip Strip See Rx Instructions .Route Qty: 100 5RF Rx Instructions: TID cyclobenzaprine 10 mg tablet 10 mg PO TID PRN (Reason: muscle spasm) Qty: 30 0RF benzonatate 200 mg capsule 200 mg PO BID PRN (Reason: cough) Qty: 30 0RF cholestyramine (with sugar) 4 gram powder in packet 4 g PO BIDAC Qty: 60 11RF nystatin 100,000 unit/gram powder 1 applic topical TID Qty: 60 3RF valacyclovir 500 mg tablet 500 mg PO DAILY Qty: 7 0RF aspirin 81 mg Tablet,Delayed Release (Dr/Ec) 81 mg PO DAILY Hold Instructions: [place]10[place]. [place] [place] True Metrix Glucose Test Strip Strip See Rx Instructions .Route Rx Instructions: 3 times per day No longer (DME) Dexcom G6 Track Repair Laborer Misc See Rx Instructions .ROUTE .MEDSUPPLY Rx Instructions: As directed [place] [place] pen needle, diabetic [BD Ultra-Fine Key Pen Needle] 32 gauge x 5/32 needle See Rx Instructions .ROUTE .MEDSUPPLY Rx Instructions: takes 5 injection/day [place] [place] Wheel Chair See Rx Instructions Rx Instructions: As directed metoprolol tartrate 50 mg tablet 50 mg PO .COMPLEX Rx Instructions: 50 mg orally twice a day with a 25 mg tablet twice a day to = 75 mg twice a day; trazodone 50 mg tablet 50 mg PO QHS diphenoxylate-atropine [Lomotil] 2.5-0.025 mg tablet 1 tab PO TID PRN (Reason: diarrhea) duloxetine 60 mg capsule,delayed release(DR/EC) 60 mg PO DAILY Patient Comments: pt takes , 30 mg cap & 60 mg cap to equal 90 mg cap lamotrigine 200 mg tablet 200 mg PO DAILY albuterol sulfate 90 mcg/actuation HFA aerosol inhaler 2 puff INHALATION BID PRN (Reason: SOB) dicyclomine 10 mg Capsule 10 mg PO BID 30 Days Qty: 60 0RF (DME) ostomy supplies See Rx Instructions .Route .MEDSUPPLY Qty: 1 0RF Rx Instructions: Pouches Barrier rings Adhesive remover Skin Prep Barrier powder atorvastatin 80 mg tablet 80 mg PO QHS Qty: 90 3RF Patient Comments: cholesterol (DME) Dexcom G6 Transmitter Device See Rx Instructions .ROUTE .MEDSUPPLY Qty: 1 3RF Rx Instructions: 1 transmitter every 90 days isosorbide dinitrate 30 mg tablet 30 mg PO BID Qty: 60 11RF (DME) Omnipod 5 G6 Pods (Gen 5) Cartridge See Rx Instructions .Route Qty: 45 1RF Rx Instructions: 1 pod q 48 hours (DME) Juanita Cohesive Seal 2 diameter See Rx Instructions .Route .MEDSUPPLY Qty: 15 7RF Rx Instructions: As directed (DME) Esenta Sting Free Adhesive Remover Wipe - See Rx Instructions .Route .MEDSUPPLY Qty: 15 7RF Rx Instructions: As directed (DME) Esenta Sting Free Skin Barrier [place], 50 mL - See Rx Instructions .Route .MEDSUPPLY Qty: 15 7RF Rx Instructions: As directed (DME) Esteem + Convex One-Piece Drainable Pre-Cut Pouch w/visiClose, Durahesive, 12 panel [place], 1 03/15 See Rx Instructions .Route .MEDSUPPLY Qty: 15 7RF Rx Instructions: As directed clopidogrel 75 mg tablet 75 mg PO DAILY Qty: 90 3RF Hold Instructions: MD Ordered Patient Comments: on hold for port placement 06/29 Rx Instructions: TAKE 1 TABLET BY MOUTH EVERY DAY Humalog KwikPen Insulin 200 unit/mL (3 mL) insulin pen 160 unit subcut DAILY Qty: 72 3RF Rx Instructions: 2.05 units/hr from 12 AM to 6:30 AM 2.15 units/hr from 6:30 AM to 12 AM metoprolol tartrate 25 mg tablet 25 mg PO .COMPLEX Qty: 180 3RF Rx Instructions: 25 mg orally take with a 50 mg tablet twice a day to = 75 mg twice a day; pantoprazole [Protonix] 40 mg tablet,delayed release (DR/EC) 40 mg PO BID Qty: 60 11RF (DME) Dexcom G6 Sensor Device See Rx Instructions .ROUTE .MEDSUPPLY Qty: 9 1RF Rx Instructions: 1 sensor every 10 days pregabalin 75 mg capsule 75 mg PO BID Qty: 56 0RF Referrals / Follow Up: Mala Mcgrath MD [Primary Care Provider] - Disposition Disposition (needs filled in before D/C Order can be placed): Home, Self Care
--- NOTE | 2023-06-30 11:50 | RAD_ITS ---
STUDY: X-RAY CHEST REASON FOR EXAM: Female, 62 years old. Line placement in PACU. TECHNIQUE: Single frontal view of the chest. COMPARISON: 01/04/2023 FINDINGS: New right internal jugular catheter with tip projected over the lower SVC. Stable cardiomegaly, sternotomy wires, aortic tortuosity, prominent central pulmonary arteries and mild hyperinflation. No acute or emergent finding. No abnormality of the visualized soft tissue structures of the upper abdomen. RAD/CXR for Line Placement IMPRESSION: Placement of right internal jugular catheter without complications. Stable unchanged chest. Electronically Signed: Adama Nevarez MD at 12:22 EDT ,
== END 2023-06-30 12:36 | disposition home or self-care (01) ==
LOC: SDC 08:58 → AC 08:59
PROVIDERS: PCP Internal Medicine; Referring Provider Internal Medicine; Visit Provider Surgery
PROC: (CPT 36561; principal; 2023-06-30 10:45)
DX: Z45.2 Encounter for adjustment and management of vascular access device (principal); N18.4 Chronic kidney disease, stage 4 (severe); I13.0 Hypertensive heart and chronic kidney disease with heart failure and stage 1 through stage 4 chronic kidney disease, or unspecified chronic kidney disease; I50.32 Chronic diastolic (congestive) heart failure; J44.9 Chronic obstructive pulmonary disease, unspecified; E11.42 Type 2 diabetes mellitus with diabetic polyneuropathy; E11.43 Type 2 diabetes mellitus with diabetic autonomic (poly)neuropathy; E11.22 Type 2 diabetes mellitus with diabetic chronic kidney disease; Z79.4 Long term (current) use of insulin; I25.10 Atherosclerotic heart disease of native coronary artery without angina pectoris; F41.9 Anxiety disorder, unspecified; Z68.30 Body mass index [BMI] 30.0-30.9, adult; E66.9 Obesity, unspecified; Z96.41 Presence of insulin pump (external) (internal); G47.33 Obstructive sleep apnea (adult) (pediatric); K21.9 Gastro-esophageal reflux disease without esophagitis; Z79.82 Long term (current) use of aspirin; Z79.51 Long term (current) use of inhaled steroids; Z79.899 Other long term (current) drug therapy; Z86.16 Personal history of COVID-19; Z95.1 Presence of aortocoronary bypass graft; Z95.5 Presence of coronary angioplasty implant and graft; Z87.891 Personal history of nicotine dependence; Z79.84 Long term (current) use of oral hypoglycemic drugs
CPT/HCPCS: 36561; 00532; 71045; 77001; 82962; C1894; J7120; C1788

== ENCOUNTER → 2023-07-01 | Outpatient (CLI) | payer MEDICARE, MEDICAID, SELFPAY ==
[2023-02-18 12:34] VITALS: BMI 30.9
--- NOTE | 2023-07-01 15:19 | MRI_ITS ---
EXAM: MR HEAD WITHOUT INTRAVENOUS CONTRAST CLINICAL INDICATION: dementia TECHNIQUE: Multiplanar and multisequence MR images of the brain were obtained without intravenous contrast. COMPARISON: MR Head dated 02/18/2020 FINDINGS: BRAIN AND EXTRA-AXIAL SPACES: Few scattered areas of increased T2 signal intensity within the cerebral white matter suggestive of chronic microvascular change. SELLA: Normal. Normal sella turcica, pituitary gland, infundibular stalk, optic chiasm and hypothalamus. AUDITORY SYSTEM: Normal. The internal auditory canals are patent. BONES/JOINTS: Intact calvarium. SINUSES: Unremarkable as visualized. Clear. MASTOID AIR CELLS: Unremarkable as visualized. Clear. ORBITS: Unremarkable as visualized. Both globes, extraocular muscles, optic nerves and retrobulbar fat appear unremarkable. VASCULATURE: Unremarkable as visualized. Normal flow voids in the major intracranial circulation. MRI/Brain without Contrast IMPRESSION: 1. No acute intracranial abnormality. 2. No interval change. Electronically Signed: Jeevan Oates MD at 12:42 EDT ,
== END | disposition home or self-care (01) ==
LOC: MRI 15:04
PROVIDERS: PCP Internal Medicine; Referring Provider Psychiatry & Neurology Neurology; Visit Provider Psychiatry & Neurology Neurology
DX: F03.90 Unspecified dementia, unspecified severity, without behavioral disturbance, psychotic disturbance, mood disturbance, and anxiety (principal)
CPT/HCPCS: 70551

== ENCOUNTER 2023-07-02 11:42 | Outpatient (CLI) | payer MEDICARE, MEDICAID, SELFPAY ==
[2023-02-18 12:34] VITALS: BMI 30.9
[2023-07-02] MEDS: 0.9% Normal Saline (1000mL) 1,000 ML 999 ML IV ×2 (11:46→12:55)
[2023-07-02] MEDS: 0.9% NaCl Peripheral Flush Adult/Peds IV (11:46)
[2023-07-02 11:50] VITALS: BP 115/52; PULSE 68; RESP 16; TEMP 35.9; O2SAT 98; BMI 31.9
[2023-07-02 14:09] VITALS: BP 129/50; PULSE 67; RESP 16; O2SAT 96
== END 2023-07-02 11:43 | disposition home or self-care (01) ==
LOC: MEDOUTP 11:42
PROVIDERS: PCP Internal Medicine; Referring Provider Internal Medicine Gastroenterology; Visit Provider Internal Medicine Gastroenterology
DX: E86.0 Dehydration (principal); R19.8 Other specified symptoms and signs involving the digestive system and abdomen
CPT/HCPCS: 96360; 96361; J7030; A4216

== ENCOUNTER 2023-07-06 11:31 | Outpatient (CLI) | payer MEDICARE, MEDICAID, SELFPAY ==
[2023-02-18 12:34] VITALS: BMI 30.9
[2023-07-06] MEDS: 0.9% Normal Saline (1000mL) 1,000 ML 999 ML IV ×2 (11:49→13:10)
[2023-07-06 11:54] VITALS: BP 131/54; PULSE 67; RESP 16; TEMP 35.8; O2SAT 93; BMI 31.9
[2023-07-06] MEDS: 0.9% NaCl Peripheral Flush Adult/Peds IV (14:22)
[2023-07-06 14:23] VITALS: BP 151/59; PULSE 64
== END 2023-07-06 11:32 | disposition home or self-care (01) ==
LOC: MEDOUTP 11:32
PROVIDERS: PCP Internal Medicine; Referring Provider Internal Medicine Gastroenterology; Visit Provider Internal Medicine Gastroenterology
DX: E86.0 Dehydration (principal); R19.8 Other specified symptoms and signs involving the digestive system and abdomen
CPT/HCPCS: 96360; 96361 ×2; J7030; A4216

== ENCOUNTER 2023-07-09 10:34 | Outpatient (CLI) | payer MEDICARE, MEDICAID, SELFPAY ==
[2023-02-18 12:34] VITALS: BMI 30.9
[2023-07-09] MEDS: 0.9% Normal Saline (1000mL) 1,000 ML 999 ML IV ×2 (10:58→11:58)
[2023-07-09 11:01] VITALS: BP 139/72; PULSE 65; RESP 16; TEMP 35.8; O2SAT 96; BMI 31.3
[2023-07-09] MEDS: 0.9% NaCl Peripheral Flush Adult/Peds IV (13:23)
[2023-07-09 13:24] VITALS: BP 149/76; PULSE 68; RESP 16
== END 2023-07-09 10:35 | disposition home or self-care (01) ==
LOC: MEDOUTP 10:34
PROVIDERS: PCP Internal Medicine; Referring Provider Internal Medicine Gastroenterology; Visit Provider Internal Medicine Gastroenterology
DX: E86.0 Dehydration (principal); R19.8 Other specified symptoms and signs involving the digestive system and abdomen
CPT/HCPCS: 96360; 96361; J7030; A4216

== ENCOUNTER 2023-07-13 11:23 | Outpatient (CLI) | payer MEDICARE, MEDICAID, SELFPAY ==
[2023-02-18 12:34] VITALS: BMI 30.9
[2023-07-13 11:37] VITALS: BP 150/62; PULSE 66; RESP 16; TEMP 36.2; O2SAT 95; BMI 31.9
[2023-07-13] MEDS: 0.9% Normal Saline (1000mL) 1,000 ML 999 ML IV (12:39)
[2023-07-13] MEDS: 0.9% NaCl PICC Flush IV (13:46)
[2023-07-13 13:50] VITALS: BP 166/68; PULSE 69; RESP 16; TEMP 36.1; O2SAT 95
== END 2023-07-13 11:24 | disposition home or self-care (01) ==
LOC: MEDOUTP 11:23
PROVIDERS: PCP Internal Medicine; Referring Provider Internal Medicine Gastroenterology; Visit Provider Internal Medicine Gastroenterology
DX: E86.0 Dehydration (principal); R19.8 Other specified symptoms and signs involving the digestive system and abdomen
CPT/HCPCS: 96374; 96361; J7030; A4216

== ENCOUNTER 2023-07-16 11:26 | Outpatient (CLI) | payer MEDICARE, MEDICAID, SELFPAY ==
[2023-02-18 12:34] VITALS: BMI 30.9
[2023-07-16] MEDS: 0.9% Normal Saline (1000mL) 1,000 ML 999 ML IV ×2 (11:38→12:47)
[2023-07-16 11:41] VITALS: BP 124/65; PULSE 65; RESP 16; TEMP 35.9; O2SAT 95; BMI 31.9
[2023-07-16] MEDS: 0.9% NaCl Peripheral Flush Adult/Peds IV (13:52)
[2023-07-16 13:56] VITALS: BP 162/71; PULSE 65; RESP 16
== END 2023-07-16 11:27 | disposition home or self-care (01) ==
LOC: MEDOUTP 11:26
PROVIDERS: PCP Internal Medicine; Referring Provider Internal Medicine Gastroenterology; Visit Provider Internal Medicine Gastroenterology
DX: E86.0 Dehydration (principal); R19.8 Other specified symptoms and signs involving the digestive system and abdomen
CPT/HCPCS: 96374; 96361; J7030; A4216

== ENCOUNTER 2023-07-20 09:44 | Outpatient (CLI) | payer MEDICARE, MEDICAID, SELFPAY ==
[2023-02-18 12:34] VITALS: BMI 30.9
[2023-07-20] MEDS: 0.9% NaCl Peripheral Flush Adult/Peds IV ×7 (10:03→13:49)
[2023-07-20] MEDS: Lactated Ringers 1,000 ML 999 ML IV ×2 (10:10→11:13)
[2023-07-20] MEDS: Albumin Human 25% (100 mL) 25 GM/100 ML BAG IV (10:12)
[2023-07-20 10:17] VITALS: BP 122/57; PULSE 66; RESP 16; TEMP 36.3; O2SAT 95; BMI 31.9
[2023-07-20] MEDS: Magnesium Sulfate 1 GM in Dextrose 5%-Water (100mL Bag) 100 ML IV (12:18)
[2023-07-20 13:47] VITALS: BP 159/60; PULSE 75; RESP 16; TEMP 36.4
[2023-07-20 13:59] LABS: Absolute Lymphocyte Count 2.81 X10^3/uL (0.83-4.51); Absolute Neutrophil Count 4.1 X10^3/uL (2.0-7.7); Basophil# 0.07 X10^3/uL; Basophil% 0.9 % (0-1); Eosinophil# 0.27 X10^3/uL; Eosinophils% 3.5 % (0-5); Hematocrit 39.3 % (37-47); Hemoglobin 12.1 g/dL (12.0-15.0); Lymphocyte # 2.81 X10^3/ul (0.83-4.51); Lymphocyte % 36.7 % (19-41); Mean Corp Hgb Conc 30.8 g/dL (32-36); Mean Corpuscular Hgb 26.1 pg (27.0-32.0); Mean Corpuscular Volume 84.9 fL (81-99); Mean Platelet Vol. 11.8 fl (6.2-12.0); Monocyte# 0.37 X10^3/uL; Monocyte% 4.8 % (0-10); NRBC Flagged by Analyzer 0 % (0-5); Neutrophil % 53.6 % (47-70); Platelet Count 167 K/mm3 (150-450); RBC Distribution Width CV 15.5 % (11.6-14.6); RBC Distribution Width SD 48.1 fl (35.1-43.9); Red Blood Count 4.63 M/mm3 (4.2-5.4); White Blood Count 7.7 K/mm3 (4.4-11.0)
[2023-07-20 14:13] LABS: ALB/GLOB Ratio 0.9 RATIO (0.9-2.4); AST(SGOT) 21 U/L (15-37); Alanine Aminotransfer ALT/SGPT 18 U/L (13-56); Albumin, Serum 3.4 g/dL (3.2-5.0); Alkaline Phosphatase 162 U/L (45-117); Anion Gap 5 (5-15); BUN 33 mg/dL (7-18); BUN/Creat Ratio 20.5 RATIO (10-20); Chloride 109 mmol/L (98-107); Creatinine, Serum 1.61 mg/dL (0.55-1.02); EST Glomerular Filtration Rate 34 mL/min (>60); Est Glom Filt Rate - Afr Amer 41 mL/min (>60); Estimated Creatinine Clearance 40.68 ml/min; Globulin 3.6 g/dL (2.2-4.2); Glucose 177 mg/dL (74-106); Potassium 4.4 mmol/L (3.5-5.1); Sodium Level 138 mmol/L (136-145)
[2023-07-21 05:43] LABS: Xtra Tube EP Lab EXTRA TUBE
[2023-07-22 15:08] LABS: Albumin 3.9 g/dL (2.9-4.4); Alpha-1-Globulins 0.1 g/dL (0.0-0.4); Alpha-2-Globulins 0.7 g/dL (0.4-1.0); Immunoglobulin A 277 mg/dL (87-352); Immunoglobulin G 1092 mg/dL (586-1602); Immunoglobulin M 36 mg/dL (26-217); PROEL- TOTAL PROTEIN 6.8 g/dL (6.0-8.5)
== END 2023-07-20 23:59 | disposition home or self-care (01) ==
LOC: MEDOUTP 09:44
PROVIDERS: Internal Medicine Hematology & Oncology; PCP Internal Medicine; Referring Provider Internal Medicine Gastroenterology; Visit Provider Internal Medicine Gastroenterology
DX: E86.0 Dehydration (principal); R19.8 Other specified symptoms and signs involving the digestive system and abdomen
CPT/HCPCS: 96365; 96366; 80053; 82784; 84165; 85025; 86334; J7120; P9047; A4216

== ENCOUNTER 2023-07-23 09:52 | Outpatient (CLI) | payer MEDICARE, MEDICAID, SELFPAY ==
[2023-02-18 12:34] VITALS: BMI 30.9
[2023-07-23] MEDS: 0.9 % NaCl (Sterile) Posiflush 10 mL IV (10:07)
[2023-07-23] MEDS: Lactated Ringers 1,000 ML 999 ML IV ×2 (10:07→11:18)
[2023-07-23] MEDS: 0.9% NaCl Peripheral Flush Adult/Peds IV ×2 (10:12→12:28)
[2023-07-23 10:14] VITALS: BP 151/80; PULSE 66; RESP 16; TEMP 35.7; O2SAT 96; BMI 31.3
[2023-07-23 12:29] VITALS: BP 166/88; PULSE 73; RESP 16; TEMP 36.4; O2SAT 97
== END 2023-07-23 23:59 | disposition home or self-care (01) ==
LOC: MEDOUTP 09:52
PROVIDERS: PCP Internal Medicine; Referring Provider Internal Medicine Gastroenterology; Visit Provider Internal Medicine Gastroenterology
DX: E86.0 Dehydration (principal); R19.8 Other specified symptoms and signs involving the digestive system and abdomen
CPT/HCPCS: 96360; 96361; J7120; A4216

== ENCOUNTER 2023-07-27 11:18 | Outpatient (CLI) | payer MEDICARE, MEDICAID, SELFPAY ==
[2023-02-18 12:34] VITALS: BMI 30.9
[2023-07-27] MEDS: Lactated Ringers 1,000 ML 999 ML IV ×2 (11:34→12:37)
[2023-07-27] MEDS: 0.9% NaCl Peripheral Flush Adult/Peds IV ×2 (11:34→13:52)
[2023-07-27 11:37] VITALS: BP 127/59; PULSE 65; RESP 16; TEMP 35.9
[2023-07-27 13:53] VITALS: BP 150/57; PULSE 68; RESP 16
== END 2023-07-27 23:59 | disposition home or self-care (01) ==
LOC: MEDOUTP 11:18
PROVIDERS: PCP Internal Medicine; Referring Provider Internal Medicine Gastroenterology; Visit Provider Internal Medicine Gastroenterology
DX: E86.0 Dehydration (principal); R19.8 Other specified symptoms and signs involving the digestive system and abdomen
CPT/HCPCS: 96365; 96366 ×2; J7120; A4216

== ENCOUNTER 2023-07-30 11:12 | Outpatient (CLI) | payer MEDICARE, MEDICAID, SELFPAY ==
[2023-02-18 12:34] VITALS: BMI 30.9
[2023-07-30] MEDS: Lactated Ringers 1,000 ML 999 ML IV ×2 (11:27→12:39)
[2023-07-30] MEDS: 0.9% NaCl Peripheral Flush Adult/Peds IV ×2 (11:27→13:54)
[2023-07-30 11:30] VITALS: BP 131/64; PULSE 61; RESP 16; TEMP 35.8; O2SAT 96; BMI 31.9
[2023-07-30 13:57] VITALS: BP 159/76; PULSE 71; RESP 16; O2SAT 98
== END 2023-07-30 23:59 | disposition home or self-care (01) ==
LOC: MEDOUTP 11:13
PROVIDERS: PCP Internal Medicine; Referring Provider Internal Medicine Gastroenterology; Visit Provider Internal Medicine Gastroenterology
DX: E86.0 Dehydration (principal); R19.8 Other specified symptoms and signs involving the digestive system and abdomen
CPT/HCPCS: 96365; 96366 ×2; J7120; A4216

== ENCOUNTER 2023-08-04 11:42 | Outpatient (CLI) | payer MEDICARE, MEDICAID, SELFPAY ==
[2023-02-18 12:34] VITALS: BMI 30.9
[2023-08-04] MEDS: 0.9% NaCl Peripheral Flush Adult/Peds IV ×3 (12:00→14:18)
[2023-08-04] MEDS: Lactated Ringers 1,000 ML 999 ML IV ×2 (12:00→13:03)
[2023-08-04 12:04] VITALS: BP 126/57; PULSE 75; RESP 16; TEMP 36.3; O2SAT 93; BMI 31.9
[2023-08-04 14:19] VITALS: BP 137/55; PULSE 73; RESP 16
== END 2023-08-04 23:59 | disposition home or self-care (01) ==
LOC: MEDOUTP 11:42
PROVIDERS: PCP Internal Medicine; Referring Provider Internal Medicine Gastroenterology; Visit Provider Internal Medicine Gastroenterology
DX: E86.0 Dehydration (principal); R19.8 Other specified symptoms and signs involving the digestive system and abdomen
CPT/HCPCS: 96360; 96361; A4216

== ENCOUNTER 2023-08-06 10:44 | Outpatient (CLI) | payer MEDICARE, MEDICAID, SELFPAY ==
[2023-02-18 12:34] VITALS: BMI 30.9
[2023-08-06] MEDS: Lactated Ringers 1,000 ML 999 ML IV ×2 (11:05→12:07)
[2023-08-06 11:07] VITALS: BP 132/68; PULSE 68; RESP 16; TEMP 35.8; O2SAT 95; BMI 31.4
[2023-08-06] MEDS: 0.9% NaCl Peripheral Flush Adult/Peds IV (13:17)
[2023-08-06 13:22] VITALS: BP 125/68; PULSE 75; RESP 16; TEMP 36.2; O2SAT 96
== END 2023-08-06 23:59 | disposition home or self-care (01) ==
LOC: MEDOUTP 10:44
PROVIDERS: PCP Internal Medicine; Referring Provider Internal Medicine Gastroenterology; Visit Provider Internal Medicine Gastroenterology
DX: E86.0 Dehydration (principal); R19.8 Other specified symptoms and signs involving the digestive system and abdomen
CPT/HCPCS: 96360; 96361; J7120; A4216

== ENCOUNTER 2023-08-10 11:23 | Outpatient (CLI) | payer MEDICARE, MEDICAID, SELFPAY ==
[2023-02-18 12:34] VITALS: BMI 30.9
[2023-08-10] MEDS: Lactated Ringers 1,000 ML 999 ML IV ×2 (11:46→12:48)
[2023-08-10 11:49] VITALS: BP 138/68; PULSE 63; RESP 16; TEMP 36.3; O2SAT 96
[2023-08-10] MEDS: 0.9% NaCl Peripheral Flush Adult/Peds IV (13:56)
[2023-08-10 13:57] VITALS: BP 144/65; PULSE 70; RESP 16; TEMP 36.2; O2SAT 94
== END 2023-08-10 23:59 | disposition home or self-care (01) ==
LOC: MEDOUTP 11:23
PROVIDERS: PCP Internal Medicine; Referring Provider Internal Medicine Gastroenterology; Visit Provider Internal Medicine Gastroenterology
DX: E86.0 Dehydration (principal); R19.8 Other specified symptoms and signs involving the digestive system and abdomen
CPT/HCPCS: 96360; 96361; J7120; A4216

== ENCOUNTER 2023-08-13 09:54 | Outpatient (CLI) | payer MEDICARE, MEDICAID, SELFPAY ==
[2023-02-18 12:34] VITALS: BMI 30.9
[2023-08-13] MEDS: Lactated Ringers 1,000 ML 999 ML IV ×2 (10:12→11:27)
[2023-08-13 10:14] VITALS: BP 154/67; PULSE 74; RESP 16; TEMP 35.8; O2SAT 97; BMI 31.9
[2023-08-13 13:42] LABS: ALB/GLOB Ratio 0.8 RATIO (0.9-2.4); AST(SGOT) 18 U/L (15-37); Alanine Aminotransfer ALT/SGPT 21 U/L (13-56); Albumin, Serum 2.8 g/dL (3.2-5.0); Alkaline Phosphatase 186 U/L (45-117); Anion Gap 7 (5-15); BUN 29 mg/dL (7-18); Calcium,Total 9.2 mg/dL (8.5-10.1); Chloride 109 mmol/L (98-107); Creatinine, Serum 1.71 mg/dL (0.55-1.02); EST Glomerular Filtration Rate 32 mL/min (>60); Est Glom Filt Rate - Afr Amer 39 mL/min (>60); Globulin 3.7 g/dL (2.2-4.2); Glucose 169 mg/dL (74-106); Potassium 4.3 mmol/L (3.5-5.1); Protein, Total 6.5 g/dL (6.4-8.2); Sodium Level 140 mmol/L (136-145)
== END 2023-08-13 23:59 | disposition home or self-care (01) ==
LOC: MEDOUTP 09:54
PROVIDERS: Nurse Practitioner Family; PCP Internal Medicine; Referring Provider Internal Medicine Gastroenterology; Visit Provider Internal Medicine Gastroenterology
DX: E86.0 Dehydration (principal); R19.8 Other specified symptoms and signs involving the digestive system and abdomen
CPT/HCPCS: 96360; 96361; 80053; J7120; A4216

== ENCOUNTER 2023-08-17 10:45 | Outpatient (CLI) | payer MEDICARE, MEDICAID, SELFPAY ==
[2023-02-18 12:34] VITALS: BMI 30.9
[2023-08-17] MEDS: Lactated Ringers 1,000 ML 999 ML IV ×2 (11:23→12:22)
[2023-08-17] MEDS: 0.9% NaCl Peripheral Flush Adult/Peds IV ×2 (11:23→13:36)
[2023-08-17 11:25] VITALS: BP 135/67; PULSE 69; RESP 16; TEMP 36.1; O2SAT 92
[2023-08-17 13:38] VITALS: BP 131/79; PULSE 71
== END 2023-08-17 23:59 | disposition home or self-care (01) ==
LOC: MEDOUTP 10:45
PROVIDERS: PCP Internal Medicine; Referring Provider Internal Medicine Gastroenterology; Visit Provider Internal Medicine Gastroenterology
DX: E86.0 Dehydration (principal); R19.8 Other specified symptoms and signs involving the digestive system and abdomen
CPT/HCPCS: 96360; 96361; J7120; A4216

== ENCOUNTER 2023-08-20 11:30 | Outpatient (CLI) | payer MEDICARE, MEDICAID, SELFPAY ==
[2023-02-18 12:34] VITALS: BMI 30.9
[2023-08-20] MEDS: 0.9% NaCl Peripheral Flush Adult/Peds IV ×2 (11:50→14:03)
[2023-08-20] MEDS: Lactated Ringers 1,000 ML 999 ML IV ×2 (11:50→12:53)
[2023-08-20 11:53] VITALS: BMI 32.1
[2023-08-20 11:55] VITALS: BP 134/54; PULSE 68; RESP 18; TEMP 35.8; O2SAT 96
== END 2023-08-20 23:59 | disposition home or self-care (01) ==
LOC: MEDOUTP 11:30
PROVIDERS: PCP Internal Medicine; Referring Provider Internal Medicine Gastroenterology; Visit Provider Internal Medicine Gastroenterology
DX: E86.0 Dehydration (principal); R19.8 Other specified symptoms and signs involving the digestive system and abdomen
CPT/HCPCS: 96365; 96366; J7120; A4216

== ENCOUNTER 2023-08-24 11:18 | Outpatient (CLI) | payer MEDICARE, MEDICAID, SELFPAY ==
[2023-02-18 12:34] VITALS: BMI 30.9
[2023-08-24] MEDS: Lactated Ringers 1,000 ML 999 ML IV (11:36)
[2023-08-24 11:41] VITALS: BP 113/64; PULSE 74; RESP 16; TEMP 35.5; O2SAT 96; BMI 32.1
[2023-08-24 13:55] VITALS: BP 141/59; PULSE 74
== END 2023-08-24 23:59 | disposition home or self-care (01) ==
LOC: MEDOUTP 11:18
PROVIDERS: PCP Internal Medicine; Referring Provider Internal Medicine Gastroenterology; Visit Provider Internal Medicine Gastroenterology
DX: E86.0 Dehydration (principal); R19.8 Other specified symptoms and signs involving the digestive system and abdomen
CPT/HCPCS: 96365; 96366 ×2; J7120; A4216

== ENCOUNTER 2023-08-27 10:48 | Outpatient (CLI) | payer MEDICARE, MEDICAID, SELFPAY ==
[2023-02-18 12:34] VITALS: BMI 30.9
[2023-08-27 11:10] VITALS: BP 123/60; PULSE 77; RESP 16; TEMP 35.7; O2SAT 95; BMI 32.5
[2023-08-27] MEDS: Lactated Ringers 1,000 ML 999 ML IV ×2 (11:16→12:16)
[2023-08-27] MEDS: 0.9% NaCl Peripheral Flush Adult/Peds IV (13:23)
== END 2023-08-27 23:59 | disposition home or self-care (01) ==
LOC: MEDOUTP 10:48
PROVIDERS: PCP Internal Medicine; Referring Provider Internal Medicine Gastroenterology; Visit Provider Internal Medicine Gastroenterology
DX: E86.0 Dehydration (principal); R19.8 Other specified symptoms and signs involving the digestive system and abdomen
CPT/HCPCS: 96360; 96361; J7120; A4216

== ENCOUNTER 2023-08-30 15:01 | Emergency (ER) | payer MEDICARE, MEDICAID, SELFPAY ==
[2023-02-18 12:34] VITALS: BMI 30.9
[2023-08-30 15:02] VITALS: BP 175/83; PULSE 72; RESP 14; TEMP 35.6; O2SAT 98; BMI 33.2
--- NOTE | 2023-08-30 15:48 | CT_ITS ---
INDICATION: fall, headache, blurred vision EXAMINATION: CT BRAIN - CT Head or Brain W/O Contrast Injection TECHNIQUE: Multiple axial images were obtained of the head without intravenous contrast. A radiation dose optimization technique was used for this scan. IV Contrast dosage and agent: None. COMPARISON: None FINDINGS: BRAIN PARENCHYMA: No intra- or extra-axial hemorrhage. No evidence of acute infarct. No intracranial mass or mass effect. Unremarkable white matter for age. There is preservation of the posey/white matter interface. Posterior fossa structures are unremarkable. CSF SPACES: Cerebral volume appropriate for age. No hydrocephalus. Basal cisterns are patent. CALVARIUM, SKULL BASE, PARANASAL SINUSES AND MASTOID AIR CELLS: Scattered paranasal sinus mucoperiosteal thickening, most prominent in the right sphenoid sinus. Hyperostosis frontalis. No acute osseous finding. Prior right mastoidectomy. ORBITS: Both globes, extraocular muscles, optic nerves and retrobulbar fat appear unremarkable. ASPECTS Score for Acute Strokes: 10 CT/Brain/Head without Contrast IMPRESSION: No CT evidence of acute intracranial hemorrhage or injury. Acute sinus disease. Electronically Signed: Royce Renteria MD at 17:35 EDT Reading Location ID and State: [facility] / [place] Tel , Service support ,
--- NOTE | 2023-08-30 15:49 | EX.ED.DYSGE1 ---
HPI History of Present Illness Chief Complaint: Vision Prob Detail of Chief Complaint: Headache and blurred vision Informant: patient Narrative Narrative: Patient presents to the emergency department with complaint of a fall that occurred 3 days ago. Patient has frequent falls and tripped on Wednesday which is 3 days ago. She hit her head on the wall. No loss of consciousness. She also injured her left great toe. She skinned her left knee. Had some bruising to the right hip. This morning she had a hard time waking up. Patient upon waking noted that she had blurred vision from both eyes. At times sees 2 of the same object. She denies recent illness. She denies urinary symptoms. Patient is on Plavix. [facility] Medical History (Updated 08/30/23 @ 18:[address] Leonides Nicole DO) Health care maintenance History of stress test Fungal dermatitis Herpes genitalia Post-menopausal Rash Back pain Arthritis Ambulates with cane History of renal disease High cholesterol Dietary restriction History of pain when walking History of echocardiogram Tremor Depression Chronic pain Rheumatoid arthritis Sleep apnea Congestive heart failure (CHF) Malaise and fatigue Vitamin B12 deficiency History of CAD (coronary artery disease) Anxiety and depression CAD (coronary artery disease) Cellulitis, abdominal wall Left shoulder pain Vitamin D deficiency Acute kidney injury CKD (chronic kidney disease), stage IV High output ileostomy MGUS (monoclonal gammopathy of unknown significance) Elevated anti-tissue transglutaminase (tTG) IgA level Ileostomy present Short bowel syndrome Loss of hearing Wears glasses History of COVID-19 Anxiety Insulin dependent diabetes mellitus Walker as ambulation aid Fatty liver Migraine headache Hx of diabetic gastroparesis Gastric reflux Former smoker BiPAP (biphasic positive airway pressure) dependence Hypertension Cardiology follow-up encounter Myoclonic jerking Chronic narcotic use Avascular necrosis of bone of left hip Chronic back pain Non-alcoholic fatty liver disease Liver mass Ulcerative colitis Nonalcoholic steatohepatitis Chronic respiratory failure Smoking greater than 20 pack years Obesity Chronic respiratory failure with hypoxia, on home O2 therapy Diabetic gastroparesis Secondary pulmonary arterial hypertension Chronic diastolic (congestive) heart failure Type 2 diabetes mellitus with diabetic polyneuropathy BMI 31.0-31.9,adult Depression with anxiety Arthritis Menieres disease Hyperlipidemia Psoriasis Obstructive sleep apnea COPD (chronic obstructive pulmonary disease) FCHL (familial combined hyperlipidemia) DM2 (diabetes mellitus, type 2) Home Medications ?Medication ?Instructions ?Recorded ?Last Taken ?Type duloxetine 30 mg capsule,delayed 30 mg PO DAILY depression 10/06/21 05/30/23 History release Wheel Chair 11/15/21 Unknown History blood sugar diagnostic (True 11/15/21 Unknown History Metrix Glucose Test Strip) blood-glucose meter,continuous 11/15/21 Unknown History (Dexcom G6 Steam Conditioning Operator) pen needle, diabetic 32 gauge x 11/15/21 Unknown History (BD Ultra-Fine Key Pen Needle) nitroglycerin 0.4 mg sublingual 0.4 mg sublingual Q5-15M PRN chest 11/20/21 Unknown Rx tablet pain #25 tabs ostomy supplies #1 ea 02/13/22 Unknown Rx Handicap Placard #1 ea 09/16/22 Unknown Rx isosorbide dinitrate 30 mg tablet 30 mg PO BID heart #60 tabs 12/11/22 05/30/23 Rx Juanita Cohesive Seal 2 diameter #15 ea 01/18/23 Unknown Rx Esenta Sting Free Adhesive Remover #15 ea 01/18/23 Unknown Rx Wipe - Esenta Sting Free Skin Barrier #15 ea 01/18/23 Unknown Rx Husser, 50 mL - Esteem + Convex One-Piece #15 ea 01/18/23 Unknown Rx Drainable Pre-Cut Pouch w/visiClose, Durahesive, 12 panel Opaque, 1 03/15 clopidogrel 75 mg tablet 75 mg PO DAILY heart health #90 02/04/23 05/27/23 Rx tabs blood sugar diagnostic (True #100 ea 02/08/23 Unknown Rx Metrix Glucose Test Strip) melatonin 5 mg tablet 5 mg PO HS sleep 02/10/23 04/30/23 History cyclobenzaprine 10 mg tablet 10 mg PO TID PRN muscle spasm #30 02/24/23 04/30/23 Rx tabs benzonatate 200 mg capsule 200 mg PO BID PRN cough #30 caps 03/10/23 Unknown Rx trazodone 50 mg tablet 50 mg PO QHS sleep 03/18/23 04/30/23 History cholestyramine (with sugar) 4 gram 4 g PO BIDAC stool #60 ea 03/31/23 04/30/23 Rx powder for susp in a packet insulin lispro 200 unit/mL (3 mL) 160 unit (0.8 mL) subcut DAILY 04/21/23 05/30/23 Rx subcutaneous pen (Humalog KwikPen diabetes #72 mL U-200 Insulin) metoprolol tartrate 25 mg tablet 25 mg PO .COMPLEX bp #180 tabs 04/29/23 05/30/23 Rx pantoprazole 40 mg tablet,delayed 40 mg PO BID GERD #60 tabs 04/29/23 05/30/23 Rx release (Protonix) albuterol sulfate 90 mcg/actuation 2 puff inhalation BID PRN SOB 05/01/23 Unknown History aerosol inhaler duloxetine 60 mg capsule,delayed 60 mg PO DAILY depression 05/01/23 05/30/23 History release lamotrigine 200 mg tablet 200 mg PO DAILY 05/01/23 05/30/23 History dicyclomine 10 mg capsule 10 mg PO BID 30 days #60 caps 05/03/23 05/30/23 Rx blood-glucose sensor (Dexcom G6 #9 ea 06/10/23 Unknown Rx Sensor device) valacyclovir 500 mg tablet 500 mg PO DAILY #7 tabs 06/16/23 Unknown Rx diphenoxylate-atropine 2.5 1 tab PO TID PRN diarrhea 06/21/23 Unknown History mg-0.025 mg tablet (Lomotil) blood-glucose transmitter (Dexcom #1 ea 07/09/23 Unknown Rx G6 Transmitter device) insulin pump cart,automated,BT #45 ea 07/14/23 Unknown Rx (Omnipod 5 G6 Pods (Gen 5) subcutaneous cartridge) atorvastatin 80 mg tablet 80 mg PO QHS CHOLESTEROL LOWERING 07/22/23 Unknown Rx #90 tabs metoprolol tartrate 50 mg tablet 50 mg PO .COMPLEX blood pressure 07/22/23 Unknown Rx #180 tabs buprenorphine HCl 150 mcg buccal 150 mcg buccal Q12H 08/04/23 Unknown History film cholecalciferol (vitamin D3) 50 100 mcg (2 x 50 mcg (2,000 unit)) 08/12/23 Unknown Rx mcg (2,000 unit) capsule PO DAILY #60 caps tramadol 50 mg tablet 50 mg PO BID PRN pain 08/12/23 Unknown History aspirin 81 mg tablet,delayed 81 mg PO DAILY heart health 08/16/23 Unknown History release cholecalciferol (vitamin D3) 1,250 1,250 mcg PO QWEEK #4 caps 08/18/23 Unknown Rx mcg (50,000 unit) capsule donepezil 10 mg tablet 10 mg PO QHS #30 tabs 08/18/23 Unknown Rx donepezil 5 mg tablet 5 mg PO QHS #30 tabs 08/18/23 Unknown Rx pregabalin 75 mg capsule 75 mg PO BID #56 caps 08/24/23 Unknown Rx Allergy/AdvReac Type Severity Reaction Status Date / Time cinnamon (Cinnamon) Allergy Severe Anaphylaxis Verified 08/30/23 15:02 Influenza Virus Vaccines Allergy Severe Shortness Verified 08/30/23 15:02 of breath liraglutide (From Victoza) Allergy Severe Anaphylaxis Verified 08/30/23 15:02 ciprofloxacin Allergy Intermediate Swelling Verified 08/30/23 15:02 metformin (From Glucophage) Allergy Mild Nausea Verified 08/30/23 15:02 metronidazole (From Flagyl) Allergy Hives Verified 08/30/23 15:02 Metronidazole HCl (From Allergy Hives Verified 08/30/23 15:02 Flagyl) Penicillins Allergy Hives Verified 08/30/23 15:02 Sulfa (Sulfonamide Allergy Hives Verified 08/30/23 15:02 Antibiotics) aripiprazole (From Abilify) AdvReac hallucinati Verified 08/30/23 15:02 ons metformin HCl (From AdvReac Nausea Verified 08/30/23 15:02 Glucophage) ranolazine AdvReac Nausea/Vom/ Verified 08/30/23 15:02 Diarrhea Hudxvvl-[id number]-PgN Reductase AdvReac Nausea/joints Verified 08/30/23 15:02 Inhibitor (Cdxyewy-Qhp-Bux ache Reductase Inhibitor) Family History Mother CVA (cerebral vascular accident) Diabetes Brother Heart disease of CAD at 65 Myocardial infarction Pancreatitis Father Cancer lymphomia Lymphoma Grandmother Myocardial infarction of [place] in her 70s Sister COPD (chronic obstructive pulmonary disease) Surgical History History of colonoscopy History of esophagogastroduodenoscopy (EGD) History of appendectomy History of coronary artery stent placement Status post total hip replacement, left History of cardiac catheterization History of History of cholecystectomy H/O coronary artery bypass surgery (05/18/12) History of coronary artery stent placement (01/12/18) H/O sinus surgery history closed fissure Ileostomy status H/O colectomy left thumb surgery H/O total hysterectomy ileostomy Social History household members: none Smoking Status: Former smoker quit date: 03/08/12 how long ago did patient quit smoking: quit in 2012; 0.5-1ppd x 30yrs alcohol intake: never substance use type: does not use diet: diabetic caffeine: No eating out: 1-3 times/week what type of physical activity do you participate in: none seatbelt use: always do you feel safe at home: Yes ROS ROS ED Review of Systems ROS Unobtainable: other Constitutional Constitutional ED: Reports lethargy; Denies chills, fever(s), sweats or weight loss Eyes Eyes: Reports blurry vision; Denies change in vision or diplopia ENT ENT ED: Denies rhinorrhea or sore throat Cardiovascular Cardiovascular: Denies chest pain, orthopnea or racing heartbeat Respiratory/Chest Respiratory/Chest: Denies cough, dyspnea, dyspnea on exertion, orthopnea or sputum Gastrointestinal Gastrointestinal: Denies abdominal pain, diarrhea, nausea or vomiting Genitourinary Genitourinary ED: Denies dysuria, hematuria or urinary frequency Musculoskeletal Musculoskeletal: Reports other Details: Left great toe pain ; Denies arthralgias, back pain, myalgias or neck pain Integumentary Denies abscess, Abrasions or rash Neurologic Neurologic: Reports headache(s); Denies weakness Psychiatric Psychiatric: Denies anxiety, depression or suicidal thoughts Endocrine Endocrinology: Denies polydipsia, polyphagia or polyuria Hematologic/Lymphatic Hematologic/Lymphatic: Denies easy bleeding, easy bruising or lymphadenopathy Allergic/Immunologic Allergic/Immunologic ED: Denies mouth swelling, tongue swelling or urticaria EXAM Physical Exam Const Vital Signs: 08/30/23 15:02 08/30/23 16:18 08/30/23 17:00 Temperature 96.1 F L Temperature Source Temporal Pulse Rate 72 70 Respiratory Rate 14 Blood Pressure 175/83 H 154/71 H 169/77 H Blood Pressure Mean 113 98 107 Pulse Ox 98 Oxygen Delivery Method Room Air 08/30/23 18:00 Temperature Temperature Source Pulse Rate 71 Respiratory Rate 15 Blood Pressure 149/70 H Blood Pressure Mean 96 Pulse Ox Oxygen Delivery Method Positive well nourished and well developed General Appearance ED: well developed and NAD HEENT Reports TM's clear and moist mucous membranes normocephalic and atraumatic; Negative for trauma or tenderness Tympanic Membrane ED: Yes TM's clear Eyes PERRL and EOMs intact bilaterally General Eye ED: Negative for pale conjunctiva or scleral icterus Neck no lymphadenopathy, supple and no JVD General: Negative for tenderness Chest Wall inspection of chest normal and palpation of chest normal Chest: Negative for tenderness Resp normal respiratory effort and clear to auscultation bilaterally Effort and Inspection: Negative for respiratory distress or pain with movement Auscultation: Negative for rhonchi, wheezes or diminished lung sounds Cardio regular rate, regular rhythm, S1 normal heart sound, S2 normal heart sound and no murmurs Peripheral Pulses: pulses 2+ throughout GI normal to inspection, nondistended, normoactive bowel sounds, soft to palpation, non-tender, non-distended and no masses GI Narrative: Old ecchymosis and bruising noted over the right iliac crest and right lower quadrant. No significant abdominal tenderness on exam. There is no rebound, rigidity, or pineal signs. No mass palpated. Back/Spine no CVA tenderness and no thoracic nor lumbar tenderness Extremity normal to inspection Extremity Narrative: Ecchymosis and bruising to left great toe noted with diffuse tenderness over the distal and proximal phalanx. No obvious deformity. Neurovascular intact. General Extremety ED: Negative for edema General Extremity: Negative for edema Neuro oriented x3, CN's II-XII intact bilaterally, no sensory deficits noted and gait normal Sensorium / Orientation: awake, alert, oriented to person, oriented to place and oriented to time Motor Exam: strength 5/5 throughout and strength abnormal Psych mental status grossly normal Skin no rashes or lesions noted and no wounds MDM MDM MDM Narrative Medical decision making narrative: Patient presents with multiple vague complaints. She complains of some blurred vision that started this morning. She has had a headache for about 3 days after falling and striking her head on the wall. Patient also complains of pain in her left foot. IV line established. CBC with differential obtained showing a 6.9 with hemoglobin 11.2 and platelet count of 162. Chemistries unremarkable. LFTs were normal. Ammonia level was normal. CT scan of the brain without contrast was unremarkable. Patient had a x-ray of the left foot that showed a fracture of the distal phalanx of the great toe. On exam do not appreciate any evidence for hyphema or significant abnormality to the retina however exam somewhat limited as am not able to dilate patient's eyes. Patient I feel will require evaluation by ophthalmology. We do not have electrical sign wirer on-call today. Will refer to ophthalmology to follow-up within the next day or 2. Lab Data Labs: Laboratory Results - last 24 hr 08/30/23 08/30/23 16:29 16:30 WBC 6.9 RBC 4.23 Hgb 11.2 L Hct 36.4 L MCV 86.1 MCH 26.5 L MCHC 30.8 L RDW Std Deviation 47.8 H RDW Coeff of Jan 15.6 H Plt Count 162 MPV 11.6 Immature Gran % (Auto) 1.400 H Neut % (Auto) 53.2 Lymph % (Auto) 34.6 [place] % (Auto) 6.8 Eos % (Auto) 3.0 Baso % (Auto) 1.0 Absolute Neuts (auto) 3.7 Absolute Lymphs (auto) 2.40 Nucleated RBC % 0 Sodium 139 Potassium 4.4 Chloride 107 Carbon Dioxide 27.0 Anion Gap 5 BUN 23 H Creatinine 1.59 H Estim Creat Clear Calc 42.01 Est GFR (MDRD) Af Amer 42 L Est GFR (MDRD) Non-Af 35 L BUN/Creatinine Ratio 14.5 Glucose 128 H Calcium 8.6 Total Bilirubin 0.80 AST 17 ALT 18 Alkaline Phosphatase 137 H Ammonia 27.0 Total Protein 6.7 Albumin 3.0 L Globulin 3.7 Albumin/Globulin Ratio 0.8 L Radiography Diagnostic Testing: Clinical Impression(s) from Imaging Studies Brain CT 08/30/23 15:48 IMPRESSION: No CT evidence of acute intracranial hemorrhage or injury. Acute sinus disease. Electronically Signed: Royce Renteria MD at 17:35 EDT , Foot X-Ray 08/30/23 16:55 IMPRESSION: Age-indeterminate medial first distal phalanx base fracture. Correlate for localized tenderness. Electronically Signed: Royce Renteria MD at 17:26 EDT , Discharge Plan Triage Chief Complaint: Vision Prob ED Provider: Leonides Nicole Dx/Rx/DC Orders Clinical Impression: Fall, Head injury, Blurred vision, Fracture of toe Instructions: ED Blurred Vision, ED Head Injury (Adult), ED Fracture, Toe, Closed Prescriptions: No Action duloxetine 30 mg capsule,delayed release(DR/EC) 30 mg PO DAILY Patient Comments: pt takes , 30 mg cap & 60 mg cap to equal 90 mg cap nitroglycerin 0.4 mg tablet, sublingual 0.4 mg sublingual Q5-15M PRN (Reason: chest pain) Qty: 25 6RF Rx Instructions: do not exceed 3 doses per episode melatonin 5 mg tablet 5 mg PO HS (DME) Handicap Placard See Rx Instructions .ROUTE .MEDSUPPLY Qty: 1 0RF Rx Instructions: As directed, length of time 3 years (DME) True Metrix Glucose Test Strip Strip See Rx Instructions .Route Qty: 100 5RF Rx Instructions: TID donepezil 5 mg tablet 5 mg PO QHS Qty: 30 0RF donepezil 10 mg tablet 10 mg PO QHS Qty: 30 5RF Rx Instructions: Begin after completing one month of treatment of donepezil 5mg nightly cholecalciferol (vitamin D3) 1,250 mcg (50,000 unit) capsule 1,250 mcg PO QWEEK Qty: 4 4RF cyclobenzaprine 10 mg tablet 10 mg PO TID PRN (Reason: muscle spasm) Qty: 30 0RF benzonatate 200 mg capsule 200 mg PO BID PRN (Reason: cough) Qty: 30 0RF cholestyramine (with sugar) 4 gram powder in packet 4 g PO BIDAC Qty: 60 11RF valacyclovir 500 mg tablet 500 mg PO DAILY Qty: 7 0RF tramadol 50 mg tablet 50 mg PO BID PRN (Reason: pain) cholecalciferol (vitamin D3) 50 mcg (2,000 unit) capsule 100 mcg PO DAILY Qty: 60 5RF aspirin 81 mg tablet,delayed release (DR/EC) 81 mg PO DAILY (DME) True Metrix Glucose Test Strip Strip See Rx Instructions .Route Rx Instructions: 3 times per day No longer (DME) Dexcom G6 Steam Conditioning Operator Misc See Rx Instructions .ROUTE .MEDSUPPLY Rx Instructions: As directed (DME) pen needle, diabetic [BD Ultra-Fine Key Pen Needle] 32 gauge x 5/32 needle See Rx Instructions .ROUTE .MEDSUPPLY Rx Instructions: takes 5 injection/day (DME) Wheel Chair See Rx Instructions Rx Instructions: As directed trazodone 50 mg tablet 50 mg PO QHS diphenoxylate-atropine [Lomotil] 2.5-0.025 mg tablet 1 tab PO TID PRN (Reason: diarrhea) buprenorphine HCl 150 mcg film 150 mcg buccal Q12H duloxetine 60 mg capsule,delayed release(DR/EC) 60 mg PO DAILY Patient Comments: pt takes , 30 mg cap & 60 mg cap to equal 90 mg cap lamotrigine 200 mg tablet 200 mg PO DAILY albuterol sulfate 90 mcg/actuation HFA aerosol inhaler 2 puff INHALATION BID PRN (Reason: SOB) dicyclomine 10 mg Capsule 10 mg PO BID 30 Days Qty: 60 0RF (DME) ostomy supplies See Rx Instructions .Route .MEDSUPPLY Qty: 1 0RF Rx Instructions: Pouches Barrier rings Adhesive remover Skin Prep Barrier powder isosorbide dinitrate 30 mg tablet 30 mg PO BID Qty: 60 11RF (DME) Juanita Cohesive Seal 2 diameter See Rx Instructions .Route .MEDSUPPLY Qty: 15 7RF Rx Instructions: As directed (DME) Esenta Sting Free Adhesive Remover Wipe - See Rx Instructions .Route .MEDSUPPLY Qty: 15 7RF Rx Instructions: As directed (DME) Esenta Sting Free Skin Barrier Husser, 50 mL - See Rx Instructions .Route .MEDSUPPLY Qty: 15 7RF Rx Instructions: As directed (DME) Esteem + Convex One-Piece Drainable Pre-Cut Pouch w/visiClose, Durahesive, 12 panel Opaque, 1 03/15 See Rx Instructions .Route .MEDSUPPLY Qty: 15 7RF Rx Instructions: As directed clopidogrel 75 mg tablet 75 mg PO DAILY Qty: 90 3RF Rx Instructions: TAKE 1 TABLET BY MOUTH EVERY DAY Humalog KwikPen Insulin 200 unit/mL (3 mL) insulin pen 160 unit subcut DAILY Qty: 72 3RF Rx Instructions: 2.05 units/hr from 12 AM to 6:30 AM 2.15 units/hr from 6:30 AM to 12 AM metoprolol tartrate 25 mg tablet 25 mg PO .COMPLEX Qty: 180 3RF Rx Instructions: 25 mg orally take with a 50 mg tablet twice a day to = 75 mg twice a day; pantoprazole [Protonix] 40 mg tablet,delayed release (DR/EC) 40 mg PO BID Qty: 60 11RF (DME) Dexcom G6 Sensor Device See Rx Instructions .ROUTE .MEDSUPPLY Qty: 9 1RF Rx Instructions: 1 sensor every 10 days (DME) Dexcom G6 Transmitter Device See Rx Instructions .ROUTE .MEDSUPPLY Qty: 1 3RF Rx Instructions: 1 transmitter every 90 days (DME) Omnipod 5 G6 Pods (Gen 5) Cartridge See Rx Instructions .Route Qty: 45 1RF Rx Instructions: 1 pod q 48 hours metoprolol tartrate 50 mg tablet 50 mg PO .COMPLEX Qty: 180 3RF Rx Instructions: 50 mg orally twice a day with a 25 mg tablet twice a day to = 75 mg twice a day; atorvastatin 80 mg tablet 80 mg PO QHS Qty: 90 3RF Patient Comments: cholesterol pregabalin 75 mg capsule 75 mg PO BID Qty: 56 0RF Primary Care Provider: Mala Mcgrath Referrals: Mala Mcgrath MD [Primary Care Provider] - Kirk Jeff DPM [Med Staff - Active Staff] - 3-5 Days Dae Parry MD [Med Staff - Active Staff] - 1-2 Days if not improving Print Language: Romanian Disposition Disposition: Home, Self Care
[2023-08-30 16:18] VITALS: BP 154/71
[2023-08-30 16:44] LABS: Absolute Neutrophil Count 3.7 X10^3/uL (2.0-7.7); Basophil# 0.07 X10^3/uL; Eosinophil# 0.21 X10^3/uL; Hematocrit 36.4 % (37-47); Hemoglobin 11.2 g/dL (12.0-15.0); Lymphocyte % 34.6 % (19-41); Mean Corp Hgb Conc 30.8 g/dL (32-36); Mean Corpuscular Hgb 26.5 pg (27.0-32.0); Mean Corpuscular Volume 86.1 fL (81-99); Mean Platelet Vol. 11.6 fl (6.2-12.0); Monocyte# 0.47 X10^3/uL; Monocyte% 6.8 % (0-10); NRBC Flagged by Analyzer 0 % (0-5); Neutrophil # 3.69 X10^3/uL (2.7-7.7); Neutrophil % 53.2 % (47-70); Platelet Count 162 K/mm3 (150-450); RBC Distribution Width CV 15.6 % (11.6-14.6); RBC Distribution Width SD 47.8 fl (35.1-43.9); Red Blood Count 4.23 M/mm3 (4.2-5.4); White Blood Count 6.9 K/mm3 (4.4-11.0)
--- NOTE | 2023-08-30 16:55 | RAD_ITS ---
INDICATION: left EXAMINATION/TECHNIQUE: X-RAY - LEFT XR Foot Min 3 Views 3 VIEWS COMPARISON: None FINDINGS: SOFT TISSUES: Mild great toe edema.. 5 mm linear radiodensity within soft tissues medial to the ankle. BONES/JOINTS: Age-indeterminate nondisplaced fracture lucency through the medial base of the first distal phalanx. No dislocation. Preservation of the joint space.. No sclerotic or destructive changes observed. Small calcaneal plantar and Achilles enthesophytes. RAD/Foot min 3 Views IMPRESSION: Age-indeterminate medial first distal phalanx base fracture. Correlate for localized tenderness. Electronically Signed: Royce Renteria MD at 17:26 EDT ,
[2023-08-30 17:00] VITALS: BP 169/77; PULSE 70
[2023-08-30 17:05] LABS: ALB/GLOB Ratio 0.8 RATIO (0.9-2.4); AST(SGOT) 17 U/L (15-37); Alanine Aminotransfer ALT/SGPT 18 U/L (13-56); Alkaline Phosphatase 137 U/L (45-117); Anion Gap 5 (5-15); BUN 23 mg/dL (7-18); BUN/Creat Ratio 14.5 RATIO (10-20); Calcium,Total 8.6 mg/dL (8.5-10.1); Chloride 107 mmol/L (98-107); Creatinine, Serum 1.59 mg/dL (0.55-1.02); EST Glomerular Filtration Rate 35 mL/min (>60); Est Glom Filt Rate - Afr Amer 42 mL/min (>60); Estimated Creatinine Clearance 42.01 ml/min; Globulin 3.7 g/dL (2.2-4.2); Glucose 128 mg/dL (74-106); Potassium 4.4 mmol/L (3.5-5.1); Protein, Total 6.7 g/dL (6.4-8.2); Sodium Level 139 mmol/L (136-145)
[2023-08-30] MEDS: 0.9% Normal Saline (1000mL) 1,000 ML 1000 ML IV (17:24)
[2023-08-30 18:00] VITALS: BP 149/70; PULSE 71; RESP 15
[2023-08-30 18:52] VITALS: BP 147/76; PULSE 85; RESP 16; TEMP 36.8; O2SAT 99
== END 2023-08-30 18:58 | disposition home or self-care (01) ==
PROVIDERS: Emergency Provider Emergency Medicine; PCP Internal Medicine; Visit Provider Emergency Medicine
DX: S09.90XA Unspecified injury of head, initial encounter (principal); N18.4 Chronic kidney disease, stage 4 (severe); J44.9 Chronic obstructive pulmonary disease, unspecified; H53.8 Other visual disturbances; S92.422A Displaced fracture of distal phalanx of left great toe, initial encounter for closed fracture; I25.10 Atherosclerotic heart disease of native coronary artery without angina pectoris; G47.33 Obstructive sleep apnea (adult) (pediatric); Z86.16 Personal history of COVID-19; Z95.1 Presence of aortocoronary bypass graft; Z95.5 Presence of coronary angioplasty implant and graft; Z87.891 Personal history of nicotine dependence; W19.XXXA Unspecified fall, initial encounter
CPT/HCPCS: 36591; 70450; 73630; 80053; 82140; 85025; 96360; 99283; J7030; A4216

== ENCOUNTER 2023-08-31 11:19 | Outpatient (CLI) | payer MEDICARE, MEDICAID, SELFPAY ==
[2023-02-18 12:34] VITALS: BMI 30.9
[2023-08-31] MEDS: Lactated Ringers 2,000 ML 999 ML IV ×2 (11:30→12:39)
[2023-08-31 11:35] VITALS: BP 170/66; PULSE 66; RESP 16; TEMP 35.8; O2SAT 97; BMI 32.5
[2023-08-31] MEDS: 0.9% NaCl Peripheral Flush Adult/Peds IV (13:53)
[2023-08-31 13:54] VITALS: BP 177/75; RESP 16
== END 2023-08-31 23:59 | disposition home or self-care (01) ==
LOC: MEDOUTP 11:19
PROVIDERS: PCP Internal Medicine; Referring Provider Internal Medicine Gastroenterology; Visit Provider Internal Medicine Gastroenterology
DX: E86.0 Dehydration (principal); R19.8 Other specified symptoms and signs involving the digestive system and abdomen
CPT/HCPCS: 96360; 96361; J7120; A4216

== ENCOUNTER 2023-09-03 11:16 | Outpatient (CLI) | payer MEDICARE, MEDICAID, SELFPAY ==
[2023-02-18 12:34] VITALS: BMI 30.9
[2023-09-03] MEDS: 0.9% NaCl Peripheral Flush Adult/Peds IV ×2 (11:51→14:10)
[2023-09-03] MEDS: Lactated Ringers 1,000 ML 1000 ML IV ×2 (11:52→12:57)
[2023-09-03 11:53] VITALS: BP 132/65; PULSE 64; RESP 16; TEMP 35.8; O2SAT 97
[2023-09-03 14:12] VITALS: BP 144/64; PULSE 72; RESP 16; TEMP 35.9; O2SAT 97
== END 2023-09-03 23:59 | disposition home or self-care (01) ==
LOC: MEDOUTP 11:16
PROVIDERS: PCP Internal Medicine; Referring Provider Internal Medicine Gastroenterology; Visit Provider Internal Medicine Gastroenterology
DX: E86.0 Dehydration (principal); R19.8 Other specified symptoms and signs involving the digestive system and abdomen
CPT/HCPCS: 96360; 96361; J7120; A4216

== ENCOUNTER 2023-09-07 11:19 | Outpatient (CLI) | payer MEDICARE, MEDICAID, SELFPAY ==
[2023-02-18 12:34] VITALS: BMI 30.9
[2023-09-07 11:36] VITALS: BP 125/46; PULSE 78; RESP 16; TEMP 36.6; O2SAT 94
[2023-09-07] MEDS: 0.9% NaCl Peripheral Flush Adult/Peds IV ×2 (11:44→14:03)
[2023-09-07] MEDS: Lactated Ringers 1,000 ML 999 ML IV ×2 (11:47→12:54)
[2023-09-07 14:04] VITALS: BP 160/68; PULSE 79; RESP 16; TEMP 36.3; O2SAT 99
== END 2023-09-07 23:59 | disposition home or self-care (01) ==
LOC: MEDOUTP 11:19
PROVIDERS: PCP Internal Medicine; Referring Provider Internal Medicine Gastroenterology; Visit Provider Internal Medicine Gastroenterology
DX: E86.0 Dehydration (principal); R19.8 Other specified symptoms and signs involving the digestive system and abdomen
CPT/HCPCS: 96365; 96366; J7120; A4216

== ENCOUNTER 2023-09-10 10:53 | Outpatient (CLI) | payer MEDICARE, MEDICAID, SELFPAY ==
[2023-02-18 12:34] VITALS: BMI 30.9
[2023-09-10 11:01] VITALS: BP 117/72; PULSE 71; RESP 16; TEMP 36.3; O2SAT 94
[2023-09-10] MEDS: Lactated Ringers 1,000 ML 999 ML IV ×2 (11:12→12:20)
[2023-09-10] MEDS: 0.9% NaCl Peripheral Flush Adult/Peds IV (13:31)
[2023-09-10 13:36] VITALS: BP 163/78; PULSE 73; RESP 16; TEMP 36.3; O2SAT 96
== END 2023-09-10 23:59 | disposition home or self-care (01) ==
LOC: MEDOUTP 10:53
PROVIDERS: PCP Internal Medicine; Referring Provider Internal Medicine Gastroenterology; Visit Provider Internal Medicine Gastroenterology
DX: E86.0 Dehydration (principal); R19.8 Other specified symptoms and signs involving the digestive system and abdomen
CPT/HCPCS: 96360; 96361; J7120; A4216

== ENCOUNTER 2023-09-14 10:51 | Outpatient (CLI) | payer MEDICARE, MEDICAID, SELFPAY ==
[2023-02-18 12:34] VITALS: BMI 30.9
[2023-09-14] MEDS: 0.9% NaCl Peripheral Flush Adult/Peds IV ×2 (11:08→13:25)
[2023-09-14] MEDS: Lactated Ringers 1,000 ML 999 ML IV ×2 (11:08→12:12)
[2023-09-14 11:18] VITALS: BP 164/79; PULSE 79; RESP 16; TEMP 36.4; O2SAT 94; BMI 32.7
== END 2023-09-14 23:59 | disposition home or self-care (01) ==
LOC: MEDOUTP 10:51
PROVIDERS: PCP Internal Medicine; Referring Provider Internal Medicine Gastroenterology; Visit Provider Internal Medicine Gastroenterology
DX: E86.0 Dehydration (principal); R19.8 Other specified symptoms and signs involving the digestive system and abdomen
CPT/HCPCS: 96365; 96366; J7120; A4216

== ENCOUNTER → 2023-09-15 | Outpatient (CLI) | payer MEDICARE, MEDICAID, SELFPAY ==
[2023-02-18 12:34] VITALS: BMI 30.9
--- NOTE | 2023-09-15 10:01 | NEURO ---
NCS and/or EMG Patient Report Ordering Doctor: Herbert Marks DATE OF SERVICE: 09/15/23 Christelle presents for electrodiagnostic testing of the lower limbs. She reports numbness and tingling in both legs and burning pain. She has a history of falls. She reports a history of diabetes. Electrodiagnostic Findings: Left peroneal motor nerve demonstrates normal distal latency with reduced amplitude and reduced conduction velocity. No evidence of conduction block across the fibular head. Right peroneal motor nerve demonstrates normal distal latency with borderline reduced amplitude and reduced conduction velocity. Left tibial motor response could not be obtained. Right tibial motor nerve demonstrates normal distal latency, amplitude with borderline reduced conduction velocity. Prolonged left peroneal, right tibial and right peroneal F?waves. Prolonged H?reflex bilaterally. Absent left sural response. Right sural latency is prolonged. Absent superficial peroneal response bilaterally. Needle EMG testing was performed in the lower limbs. Motor units of increased amplitude and duration are noted bilaterally in the gastrocnemius. Electrodiagnostic Impression: This is an abnormal study in the lower limbs 1. Electrodiagnostic findings suggestive of sensorimotor peripheral polyneuropathy with mixed features of demyelination and axonal loss. This is likely secondary to longstanding diabetes. 2. There is no electrodiagnostic evidence for lumbosacral radiculopathy. Multi Select Codes Neurology Neurology Interp Codes: 66786-04 Musc test done w/n test comp (interp) (2) and 77870-04 Nrv cndj test 9-10 studies (interp)
== END | disposition home or self-care (01) ==
LOC: PSN 08:22
PROVIDERS: PCP Internal Medicine; Referring Provider Psychiatry & Neurology Neurology; Visit Provider Psychiatry & Neurology Neurology
DX: R20.0 Anesthesia of skin (principal); G62.9 Polyneuropathy, unspecified; R26.9 Unspecified abnormalities of gait and mobility; M54.50 Low back pain, unspecified
CPT/HCPCS: 95886; 95911

== ENCOUNTER 2023-09-17 10:42 | Outpatient (CLI) | payer MEDICARE, MEDICAID, SELFPAY ==
[2023-02-18 12:34] VITALS: BMI 30.9
[2023-09-17] MEDS: Lactated Ringers 1,000 ML 999 ML IV ×2 (10:50→12:08)
[2023-09-17 10:56] VITALS: BP 153/83; PULSE 73; RESP 16; TEMP 36.1; O2SAT 91
[2023-09-17] MEDS: 0.9% NaCl Peripheral Flush Adult/Peds IV (13:18)
[2023-09-17 13:21] VITALS: BP 141/75; PULSE 73
== END 2023-09-17 23:59 | disposition home or self-care (01) ==
LOC: MEDOUTP 10:42
PROVIDERS: PCP Internal Medicine; Referring Provider Internal Medicine Gastroenterology; Visit Provider Internal Medicine Gastroenterology
DX: E86.0 Dehydration (principal); R19.8 Other specified symptoms and signs involving the digestive system and abdomen
CPT/HCPCS: 96360; 96361; J7120; A4216

== ENCOUNTER 2023-09-18 12:59 | Inpatient (IN) | payer MEDICARE, MEDICAID, SELFPAY ==
[2023-02-18 12:34] VITALS: BMI 30.9
[2023-09-18] VITALS (14 sets, daily range): BP systolic 142–185; BP diastolic 61–75; PULSE 61–80; RESP 14–18; TEMP 35.8–36.9; O2SAT 88–100; BMI 33.7; BMI 33.4
--- NOTE | 2023-09-18 13:38 | EKG12_ITS ---
Test Reason : WEAKNESS Blood Pressure : / mmHG Vent. Rate : 060 BPM Atrial Rate : 060 BPM P-R Int : 192 ms QRS Dur : 096 ms QT Int : 444 ms P-R-T Axes : 029 -26 143 degrees QTc Int : 444 ms Normal sinus rhythm Left ventricular hypertrophy with repolarization abnormality ( R in aVL , [place] product ) Abnormal ECG Confirmed by IWONA DOMINGUEZ, STEVE ([id number]), editorial assistant DEREK CAVAZOS ([id number]) on 09/22/2023 9:38:40 AM Referred By: Confirmed By:EDNA BUSTILLO MD
--- NOTE | 2023-09-18 13:38 | RAD_ITS ---
INDICATION: cough EXAMINATION/TECHNIQUE: X-RAY - XR Chest 2 Views COMPARISON: 03/10/2023 FINDINGS: LINES/DEVICES: Interval placement right-sided port with tip in the right atrium. LUNGS: No consolidation, edema or effusion. No pneumothorax. MEDIASTINUM AND CARDIOVASCULAR STRUCTURES: Cardiac silhouette stable within upper normal limits with stable changes from prior cardiac surgery. BONES AND SOFT TISSUES: No acute changes. RAD/Chest PA and Lateral IMPRESSION: No radiographic evidence of acute cardiopulmonary disease. Electronically Signed: Usman Perez MD at 15:41 EDT ,
[2023-09-18] MEDS: Albuterol 2.5 MG/3 ML VIAL.NEB. INHALATION (13:52)
[2023-09-18] MEDS: Ipratropium/Albuterol Sulfate 3 ML AMPUL.NEB INHALATION ×2 (13:52→20:00)
--- NOTE | 2023-09-18 13:57 | EDS_ITS ---
<Statement entered by Tiffany Alexandre MD - 09/18/23 21:55> I have personally performed a face to face assessment of the patient and have reviewed the GARRET Note. Patient presents secondary to generalized weakness and being out of her insulin. She reports her Dexcom meter stopped working 3 days ago and she has not been getting her insulin. She feels generally weak and more fatigued. She does have some chest pressure and some shortness of breath as well. Patient sitting upright in bed no acute distress. She is nontoxic-appearing. Head and neck examination unremarkable. Heart is regular rate and rhythm. No lung sounds with mild expiratory wheezes. She does have a port in the right upper chest. Abdomen is soft and nontender. Patient is alert answering questions at the time of my exam. CBC reveals normal white count. Hemoglobin is 11.9 hematocrit is 37.5. Chemistry studies significant for BUN of 23 and creatinine 1.74. This is slightly bumped from her prior. Family also reports that the patient had 2 units of IV fluid yesterday. Glucose is 285. Lactic acid is slightly elevated at 2.3. Troponin is normal at 13. Urinalysis reveals no obvious infection. Serum acetone level is negative. Chest x-ray per my interpretation was chronic changes with no obvious infiltrate. Radiology interpretation reviewed and agrees. Patient has some intermittent sleepiness, but will wake up with stimulation. VBG is obtained and does reveal pH 7.2 with a CO2 of 70. Patient reportedly is supposed to wear BiPAP at night but refuses because she does not like anything on her face. Patient refused BiPAP here. Patient discussed with hospitalist for admission. She is given further IV fluids. HPI History of Present Illness Chief Complaint: Weakness Narrative Narrative: Patient is a 63-year-old female with a long medical history consisting of hype rtension hyperlipidemia, chronic kidney disease, diabetes COPD obesity anxiety, depression who presents to the emergency department for multiple complaints. Per the family, the patient's Dexcom, was malfunctioning, her insulin pump was unable to give her insulin. She has not had insulin for the last 3 days. Patient has been more confused, more lethargic, nauseous, having some more shortness of breath and chest discomfort. Patient is here with her family members. Patient has had issues like this before. Denies any recent fevers or chills. [facility] Medical History (Updated 09/18/23 @ 16:43 by DERIC Solorio) Health care maintenance History of stress test Fungal dermatitis Herpes genitalia Post-menopausal Rash Back pain Arthritis Ambulates with cane History of renal disease High cholesterol Dietary restriction History of pain when walking History of echocardiogram Tremor Depression Chronic pain Rheumatoid arthritis Sleep apnea Congestive heart failure (CHF) Malaise and fatigue Vitamin B12 deficiency History of CAD (coronary artery disease) Anxiety and depression CAD (coronary artery disease) Cellulitis, abdominal wall Left shoulder pain Vitamin D deficiency Acute kidney injury CKD (chronic kidney disease), stage IV High output ileostomy MGUS (monoclonal gammopathy of unknown significance) Elevated anti-tissue transglutaminase (tTG) IgA level Ileostomy present Short bowel syndrome Loss of hearing Wears glasses History of COVID-19 Anxiety Insulin dependent diabetes mellitus Walker as ambulation aid Fatty liver Migraine headache Hx of diabetic gastroparesis Gastric reflux Former smoker BiPAP (biphasic positive airway pressure) dependence Hypertension Cardiology follow-up encounter Myoclonic jerking Chronic narcotic use Avascular necrosis of bone of left hip Chronic back pain Non-alcoholic fatty liver disease Liver mass Ulcerative colitis Nonalcoholic steatohepatitis Chronic respiratory failure Smoking greater than 20 pack years Obesity Chronic respiratory failure with hypoxia, on home O2 therapy Diabetic gastroparesis Secondary pulmonary arterial hypertension Chronic diastolic (congestive) heart failure Type 2 diabetes mellitus with diabetic polyneuropathy BMI 31.0-31.9,adult Depression with anxiety Arthritis Menieres disease Hyperlipidemia Psoriasis Obstructive sleep apnea COPD (chronic obstructive pulmonary disease) FCHL (familial combined hyperlipidemia) DM2 (diabetes mellitus, type 2) Home Medications ?Medication ?Instructions ?Recorded ?Last Taken ?Type duloxetine 30 mg capsule,delayed 30 mg PO DAILY depression 10/06/21 05/30/23 History release Wheel Chair 11/15/21 Unknown History blood sugar diagnostic (True 11/15/21 Unknown History Metrix Glucose Test Strip) blood-glucose meter,continuous 11/15/21 Unknown History ([employer]ient [employer] G6 Tax Revenue Officer) pen needle, diabetic 32 gauge x 11/15/21 Unknown History (BD Ultra-Fine Key Pen Needle) nitroglycerin 0.4 mg sublingual 0.4 mg sublingual Q5-15M PRN chest 11/20/21 Unknown Rx tablet pain #25 tabs ostomy supplies #1 ea 02/13/22 Unknown Rx Handicap Placard #1 ea 09/16/22 Unknown Rx isosorbide dinitrate 30 mg tablet 30 mg PO BID heart #60 tabs 12/11/22 05/30/23 Rx Juanita Cohesive Seal 2 diameter #15 ea 01/18/23 Unknown Rx Esenta Sting Free Adhesive Remover #15 ea 01/18/23 Unknown Rx Wipe - Esenta Sting Free Skin Barrier #15 ea 01/18/23 Unknown Rx [place], 50 mL - Esteem + Convex One-Piece #15 ea 01/18/23 Unknown Rx Drainable Pre-Cut Pouch w/visiClose, Durahesive, 12 panel [place], 1 03/15 clopidogrel 75 mg tablet 75 mg PO DAILY heart health #90 02/04/23 05/27/23 Rx tabs blood sugar diagnostic (True #100 ea 02/08/23 Unknown Rx Metrix Glucose Test Strip) melatonin 5 mg tablet 5 mg PO HS sleep 02/10/23 04/30/23 History cyclobenzaprine 10 mg tablet 10 mg PO TID PRN muscle spasm #30 02/24/23 04/30/23 Rx tabs benzonatate 200 mg capsule 200 mg PO BID PRN cough #30 caps 03/10/23 Unknown Rx trazodone 50 mg tablet 50 mg PO QHS sleep 03/18/23 04/30/23 History cholestyramine (with sugar) 4 gram 4 g PO BIDAC stool #60 ea 03/31/23 04/30/23 Rx powder for susp in a packet insulin lispro 200 unit/mL (3 mL) 160 unit (0.8 mL) subcut DAILY 04/21/23 05/30/23 Rx subcutaneous pen (Humalog KwikPen diabetes #72 mL U-200 Insulin) metoprolol tartrate 25 mg tablet 25 mg PO .COMPLEX bp #180 tabs 04/29/23 05/30/23 Rx pantoprazole 40 mg tablet,delayed 40 mg PO BID GERD #60 tabs 04/29/23 05/30/23 Rx release (Protonix) albuterol sulfate 90 mcg/actuation 2 puff inhalation BID PRN SOB 05/01/23 Unknown History aerosol inhaler duloxetine 60 mg capsule,delayed 60 mg PO DAILY depression 05/01/23 05/30/23 History release lamotrigine 200 mg tablet 200 mg PO DAILY 05/01/23 05/30/23 History dicyclomine 10 mg capsule 10 mg PO BID 30 days #60 caps 05/03/23 05/30/23 Rx blood-glucose sensor (Dexcom G6 #9 ea 06/10/23 Unknown Rx Sensor device) valacyclovir 500 mg tablet 500 mg PO DAILY #7 tabs 06/16/23 Unknown Rx diphenoxylate-atropine 2.5 1 tab PO TID PRN diarrhea 06/21/23 Unknown History mg-0.025 mg tablet (Lomotil) blood-glucose transmitter (Dexcom #1 ea 07/09/23 Unknown Rx G6 Transmitter device) insulin pump cart,automated,BT #45 ea 07/14/23 Unknown Rx (Omnipod 5 G6 Pods (Gen 5) subcutaneous cartridge) atorvastatin 80 mg tablet 80 mg PO QHS CHOLESTEROL LOWERING 07/22/23 Unknown Rx #90 tabs metoprolol tartrate 50 mg tablet 50 mg PO .COMPLEX blood pressure 07/22/23 Unknown Rx #180 tabs buprenorphine HCl 150 mcg buccal 150 mcg buccal Q12H 08/04/23 Unknown History film cholecalciferol (vitamin D3) 50 100 mcg (2 x 50 mcg (2,000 unit)) 08/12/23 Unknown Rx mcg (2,000 unit) capsule PO DAILY #60 caps tramadol 50 mg tablet 50 mg PO BID PRN pain 08/12/23 Unknown History aspirin 81 mg tablet,delayed 81 mg PO DAILY heart health 08/16/23 Unknown History release cholecalciferol (vitamin D3) 1,250 1,250 mcg PO QWEEK #4 caps 08/18/23 Unknown R x mcg (50,000 unit) capsule donepezil 10 mg tablet 10 mg PO QHS #30 tabs 08/18/23 Unknown Rx donepezil 5 mg tablet 5 mg PO QHS #30 tabs 08/18/23 Unknown Rx pregabalin 75 mg capsule 75 mg PO BID #56 caps 09/15/23 Unknown Rx Allergy/AdvReac Type Severity Reaction Status Date / Time cinnamon (Cinnamon) Allergy Severe Anaphylaxis Verified 09/18/23 13:01 Influenza Virus Vaccines Allergy Severe Shortness Verified 09/18/23 13:01 of breath liraglutide (From Victoza) Allergy Severe Anaphylaxis Verified 09/18/23 13:01 ciprofloxacin Allergy Intermediate Swelling Verified 09/18/23 13:01 metformin (From Glucophage) Allergy Mild Nausea Verified 09/18/23 13:01 metronidazole (From Flagyl) Allergy Hives Verified 09/14/23 11:17 Metronidazole HCl (From Allergy Hives Verified 09/18/23 13:01 Flagyl) Penicillins Allergy Hives Verified 09/18/23 13:01 Sulfa (Sulfonamide Allergy Hives Verified 09/18/23 13:01 Antibiotics) aripiprazole (From Abilify) AdvReac hallucinati Verified 09/18/23 13:01 ons metformin HCl (From AdvReac Nausea Verified 09/18/23 13:01 Glucophage) ranolazine AdvReac Nausea/Vom/ Verified 09/18/23 13:01 Diarrhea [id number] Reductase AdvReac Nausea/joints Verified 09/18/23 13:01 Inhibitor ([place]-Qil-Hbz ache Reductase Inhibitor) Family History Mother CVA (cerebral vascular accident) Diabetes Brother Heart disease of CAD at 65 Myocardial infarction Pancreatitis Father Cancer lymphomia Lymphoma Grandmother Myocardial infarction of [place] in her 70s Sister COPD (chronic obstructive pulmonary disease) Surgical History History of colonoscopy History of esophagogastroduodenoscopy (EGD) History of appendectomy History of coronary artery stent placement Status post total hip replacement, left History of cardiac catheterization History of History of cholecystectomy H/O coronary artery bypass surgery (05/18/12) History of coronary artery stent placement (01/12/18) H/O sinus surgery history closed fissure Ileostomy status H/O colectomy left thumb surgery H/O total hysterectomy ileostomy Social History household members: none Smoking Status: Former smoker quit date: 03/08/12 how long ago did patient quit smoking: quit in 2012; 0.5-1ppd x 30yrs alcohol intake: never substance use type: does not use diet: diabetic caffeine: No eating out: 1-3 times/week what type of physical activity do you participate in: none seatbelt use: always do you feel safe at home: Yes ROS ROS ED ROS Narrative Constitutional: Negative for fever, chills, weight loss. Positive for weakness Eyes: Negative for vision loss, vision change, double vision ENT: Negative for any sore throat, ear pain, congestion Cardiovascular: Negative for any palpitations. Positive chest pain and tightness Respiratory: Negative for any cough, sputum production, hemoptysis, dyspnea on exertion, orthopnea. Positive for dyspnea Gastrointestinal: Negative for any abdominal pain diarrhea, constipation, blood in stool, blood in vomit. Positive for nausea and vomiting : Negative for any urinary frequency, dysuria, retention, blood in urine Muscle skeletal: Negative for any neck pain, back pain Neurological: Negative for any headache, syncope. Positive intermittent dizzin ess Skin: Negative for any rashes, itching, abrasions, lacerations Psychiatric: Negative for any depression, anxiety, stress, suicidal ideation, homicidal ideation Hematologic: Negative for any excessive bruising, easy bleeding EXAM Physical Exam Narrative Exam Narrative: Vital signs reviewed. Patient does appear ill, patient is somnolent, she does answer questions appropriately when aroused by verbal stimuli. HEET: Head normocephalic atraumatic, TMs clear bilaterally. Posterior pharynx is clear, dry mucous membranes. Nares clear bilaterally. Neck: Supple with no lymphadenopathy or tenderness. No signs of meningismus. Cardiac: Regular rate and rhythm no murmurs gallops or rubs, equal peripheral pulses bilaterally. Respiratory: Expiratory wheezes to the right middle and lower lobe, left lung was clear. No chest tenderness. Abdomen: Soft, nontender, nondistended. No abdominal bruit or pulsatile masses. No hepatosplenomegaly Extremities: No peripheral edema, no signs of gross trauma or deformity. Active full range of motion of all extremities. Neuro: Cranial nerves II through XII intact, no focal neurological deficits. Skin: Clean dry and intact with no rash, purpura, petechiae, vesicles or pustules. Backs/flank: No CVA tenderness, no midline spinal tenderness, no deformity. Psych: Normal mood and affect. No SI, HI or acute psychosis. Const Vital Signs: 09/18/23 13:01 09/18/23 13:57 09/18/23 14:21 Temperature 96.5 F L Temperature Source Temporal Pulse Rate 61 62 Respiratory Rate 14 16 Respiratory Effort Normal Respiratory Pattern Normal Normal Blood Pressure 144/61 H Blood Pressure Mean 88 Pulse Ox 93 Oxygen Delivery Method Room Air 09/18/23 15:00 09/18/23 15:19 Temperature Temperature Source Pulse Rate 62 Respiratory Rate 16 Respiratory Effort Respiratory Pattern Blood Pressure 168/75 H Blood Pressure Mean 106 Pulse Ox 88 88 Oxygen Delivery Method Room Air Nasal Cannula Positive obese Nutritional Appearance: obese MDM MDM Lab Data Labs: Laboratory Results - last 24 hr 09/18/23 09/18/23 14:19 14:35 WBC 6.6 RBC 4.32 Hgb 11.9 L Hct 37.5 MCV 86.8 MCH 27.5 MCHC 31.7 L RDW Std Deviation 50.2 H RDW Coeff of Jan 16.5 H Plt Count 156 MPV 11.8 Immature Gran % (Auto) 1.400 H Neut % (Auto) 50.4 Lymph % (Auto) 37.7 [place] % (Auto) 5.9 Eos % (Auto) 3.5 Baso % (Auto) 1.1 H Absolute Neuts (auto) 3.3 Absolute Lymphs (auto) 2.48 Nucleated RBC % 0 Sodium 136 Potassium 4.9 Chloride 103 Carbon Dioxide 29.0 Anion Gap 4 L BUN 23 H Creatinine 1.74 H Est GFR (MDRD) Af Amer 38 L Est GFR (MDRD) Non-Af 31 L BUN/Creatinine Ratio 13.2 Glucose 285 H Lactic Acid 2.3 H* Calcium 9.0 Total Bilirubin 0.90 AST 22 ALT 21 Alkaline Phosphatase 132 H Troponin I High Sens 13 Total Protein 6.9 Albumin 3.2 Globulin 3.7 Albumin/Globulin Ratio 0.9 Urine Color Yellow Urine Clarity Clear Urine pH 6.0 Ur Specific [place] 1.020 Urine Protein 100 H Urine Glucose (UA) 100 H Urine Ketones Negative Urine Occult Blood 25 H Urine Nitrite Negative Urine Bilirubin Negative Urine Urobilinogen Normal Ur Leukocyte Esterase Negative Urine RBC 0-5 SEEN Urine WBC 0-5 SEEN Ur Squamous Epith Cells 0-5 SEEN Urine Bacteria RARE Urine Mucus 0 SEEN Acetone Level NEGATIVE ABG Data ABG results: ABG 09/18/23 15:43 Specimen Type PAMELA Sample Site Not entered VBG pH 7.20 L VBG pO2 38 VBG HCO3 28 H VBG Total CO2 30 VBG O2 Sat (Calc) 58 VBG Base Excess 0 POC Mix VBG pCO2 Pt Tmp 70.2 H* O2 Delivery Device Not entered Crit Call To/Read Back Yes Blood Gas Notified Whom jk Blood Gas Notified Time 15:44:36 Radiography Diagnostic Testing: Clinical Impression(s) from Imaging Studies Chest X-Ray 09/18/23 13:38 IMPRESSION: No radiographic evidence of acute cardiopulmonary disease. Electronically Signed: Usman Perez MD at 15:41 EDT , Treatment and Re-Evaluation :: Differential diagnosis includes however is not limited to: DKA, community- acquired pneumonia, viral symptoms such as COVID-19/influenza/RSV, electrolyte abnormality, dehydration, hyperglycemia, UTI Patient appears to be in no obvious respiratory distress, vital signs are stable however patient does appear ill. Patient is somnolent, does wake up to verbal stimuli. Patient will receive a full workup concerning for any DKA, as well as a chest x-ray, breathing treatment secondary to the wheezing. Urinalysis, other laboratory values looking for any acute process. Patient be given 1 L of normal saline, IV Zofran. Patient will need to be reevaluated. Patient's chest x-ray shows no radiographic evidence of acute pulmonary process. Laboratory values show a normal CBC, chronic anemia with hemoglobin 11.9, patient's chemistries show acute on chronic renal sufficiency with a creatinine of 1.7 lactic acid was 2.3, patient was given 1 L normal saline. Alkaline phos was slight elevated 132, this is stable. Acetone level was negative. Patient EKG shows normal sinus rhythm, rate of 60 bpm, DC interval 192 ms, QRS duration 96 ms, no acute ST elevation, no acute infarct noted. Nursing staff noticed that the patient's pulse oxygenation was between 87-88% while the patient was sitting there. Patient received a VBG, this showed a pH o f 7.2 with a pCO2 of 70.2 which is critical high. Treatment would be BiPAP, however patient refused. Patient placed on nasal cannula oxygen and is mentating well. At this time, patient will need to be admitted to the hospital. I spoke with hospitalist, stable for admission to PCU. Discharge Plan Triage Chief Complaint: Weakness ED Midlevel Provider: Alireza Ramirez ED Provider: Tiffany Alexandre Dx/Rx/DC Orders Clinical Impression: Acute alteration in mental status, Hypoxia, Dehydration, Acute hyperglycemia, Hypercapnia Prescriptions: No Action duloxetine 30 mg capsule,delayed release(DR/EC) 30 mg PO DAILY Patient Comments: pt takes , 30 mg cap & 60 mg cap to equal 90 mg cap nitroglycerin 0.4 mg tablet, sublingual 0.4 mg sublingual Q5-15M PRN (Reason: chest pain) Qty: 25 6RF Rx Instructions: do not exceed 3 doses per episode melatonin 5 mg tablet 5 mg PO HS (DME) Handicap Placard See Rx Instructions .ROUTE .MEDSUPPLY Qty: 1 0RF Rx Instructions: As directed, length of time 3 years (DME) True Metrix Glucose Test Strip Strip See Rx Instructions .Route Qty: 100 5RF Rx Instructions: TID donepezil 5 mg tablet 5 mg PO QHS Qty: 30 0RF donepezil 10 mg tablet 10 mg PO QHS Qty: 30 5RF Rx Instructions: Begin after completing one month of treatment of donepezil 5mg nightly cholecalciferol (vitamin D3) 1,250 mcg (50,000 unit) capsule 1,250 mcg PO QWEEK Qty: 4 4RF cyclobenzaprine 10 mg tablet 10 mg PO TID PRN (Reason: muscle spasm) Qty: 30 0RF benzonatate 200 mg capsule 200 mg PO BID PRN (Reason: cough) Qty: 30 0RF cholestyramine (with sugar) 4 gram powder in packet 4 g PO BIDAC Qty: 60 11RF valacyclovir 500 mg tablet 500 mg PO DAILY Qty: 7 0RF tramadol 50 mg tablet 50 mg PO BID PRN (Reason: pain) cholecalciferol (vitamin D3) 50 mcg (2,000 unit) capsule 100 mcg PO DAILY Qty: 60 5RF aspirin 81 mg tablet,delayed release (DR/EC) 81 mg PO DAILY (DME) True Metrix Glucose Test Strip Strip See Rx Instructions .Route Rx Instructions: 3 times per day No longer (DME) Dexcom G6 Tax Revenue Officer Mis See Rx Instructions .ROUTE .MEDSUPPLY Rx Instructions: [place] [place] needle, diabetic [BD Ultra-Fine Key Pen Needle] 32 gauge x 5/32 needle See Rx Instructions .ROUTE .MEDSUPPLY Rx Instructions: takes 5 injection/day (DME) Wheel Chair See Rx Instructions Rx Instructions: As directed trazodone 50 mg tablet 50 mg PO QHS diphenoxylate-atropine [Lomotil] 2.5-0.025 mg tablet 1 tab PO TID PRN (Reason: diarrhea) buprenorphine HCl 150 mcg film 150 mcg buccal Q12H duloxetine 60 mg capsule,delayed release(DR/EC) 60 mg PO DAILY Patient Comments: pt takes , 30 mg cap & 60 mg cap to equal 90 mg cap lamotrigine 200 mg tablet 200 mg PO DAILY albuterol sulfate 90 mcg/actuation HFA aerosol inhaler 2 puff INHALATION BID PRN (Reason: SOB) dicyclomine 10 mg Capsule 10 mg PO BID 30 Days Qty: 60 0RF (DME) ostomy supplies See Rx Instructions .Route .MEDSUPPLY Qty: 1 0RF Rx Instructions: Pouches Barrier rings Adhesive remover Skin Prep Barrier powder isosorbide dinitrate 30 mg tablet 30 mg PO BID Qty: 60 11RF (DME) Juanita Cohesive Seal 2 diameter See Rx Instructions .Route .MEDSUPPLY Qty: 15 7RF Rx Instructions: As directed (DME) Esenta Sting Free Adhesive Remover Wipe - See Rx Instructions .Route .MEDSUPPLY Qty: 15 7RF Rx Instructions: As directed (DME) Esenta Sting Free Skin Barrier [place], 50 mL - See Rx Instructions .Route .MEDSUPPLY Qty: 15 7RF Rx Instructions: As directed (DME) Esteem + Convex One-Piece Drainable Pre-Cut Pouch w/visiClose, [place], 12 panel [place], 1 03/15 See Rx Instructions .Route .MEDSUPPLY Qty: 15 7RF Rx Instructions: As directed clopidogrel 75 mg tablet 75 mg PO DAILY Qty: 90 3RF Rx Instructions: TAKE 1 TABLET BY MOUTH EVERY DAY Humalog KwikPen Insulin 200 unit/mL (3 mL) insulin pen 160 unit subcut DAILY Qty: 72 3RF Rx Instructions: 2.05 units/hr from 12 AM to 6:30 AM 2.15 units/hr from 6:30 AM to 12 AM metoprolol tartrate 25 mg tablet 25 mg PO .COMPLEX Qty: 180 3RF Rx Instructions: 25 mg orally take with a 50 mg tablet twice a day to = 75 mg twice a day; pantoprazole [Protonix] 40 mg tablet,delayed release (DR/EC) 40 mg PO BID Qty: 60 11RF (DME) Dexcom G6 Sensor Device See Rx Instructions .ROUTE .MEDSUPPLY Qty: 9 1RF Rx Instructions: 1 sensor every 10 days (DME) Dexcom G6 Transmitter Device See Rx Instructions .ROUTE .MEDSUPPLY Qty: 1 3RF Rx Instructions: 1 transmitter every 90 days (DME) Omnipod 5 G6 Pods (Gen 5) Cartridge See Rx Instructions .Route Qty: 45 1RF Rx Instructions: 1 pod q 48 hours metoprolol tartrate 50 mg tablet 50 mg PO .COMPLEX Qty: 180 3RF Rx Instructions: 50 mg orally twice a day with a 25 mg tablet twice a day to = 75 mg twice a day; atorvastatin 80 mg tablet 80 mg PO QHS Qty: 90 3RF Patient Comments: cholesterol pregabalin 75 mg capsule 75 mg PO BID Qty: 56 0RF Primary Care Provider: Mala Mcgrath Referrals: Mala Mcgrath MD [Primary Care Provider] - Print Language: Serbian Disposition Disposition: Acute Care Hospital [facility]
[2023-09-18] MEDS: Ondansetron 4 MG/2 ML Vial IV (14:12)
[2023-09-18] MEDS: 0.9% Normal Saline (1000mL) 1,000 ML 999 ML IV (14:12)
[2023-09-18 14:28] LABS: Absolute Lymphocyte Count 2.48 X10^3/uL (0.83-4.51); Absolute Neutrophil Count 3.3 X10^3/uL (2.0-7.7); Basophil# 0.07 X10^3/uL; Basophil% 1.1 % (0-1); Eosinophil# 0.23 X10^3/uL; Eosinophils% 3.5 % (0-5); Hematocrit 37.5 % (37-47); Hemoglobin 11.9 g/dL (12.0-15.0); Lymphocyte # 2.48 X10^3/ul (0.83-4.51); Lymphocyte % 37.7 % (19-41); Mean Corp Hgb Conc 31.7 g/dL (32-36); Mean Corpuscular Hgb 27.5 pg (27.0-32.0); Mean Corpuscular Volume 86.8 fL (81-99); Mean Platelet Vol. 11.8 fl (6.2-12.0); Monocyte# 0.39 X10^3/uL; Monocyte% 5.9 % (0-10); NRBC Flagged by Analyzer 0 % (0-5); Neutrophil # 3.32 X10^3/uL (2.7-7.7); Neutrophil % 50.4 % (47-70); Platelet Count 156 K/mm3 (150-450); RBC Distribution Width CV 16.5 % (11.6-14.6); RBC Distribution Width SD 50.2 fl (35.1-43.9); Red Blood Count 4.32 M/mm3 (4.2-5.4); White Blood Count 6.6 K/mm3 (4.4-11.0)
[2023-09-18 14:48] LABS: Mucous, Urine 0 SEEN /hpf (<or=2+)
[2023-09-18 14:57] LABS: ALB/GLOB Ratio 0.9 RATIO (0.9-2.4); AST(SGOT) 22 U/L (15-37); Alanine Aminotransfer ALT/SGPT 21 U/L (13-56); Albumin, Serum 3.2 g/dL (3.2-5.0); Alkaline Phosphatase 132 U/L (45-117); Anion Gap 4 (5-15); BUN 23 mg/dL (7-18); BUN/Creat Ratio 13.2 RATIO (10-20); Chloride 103 mmol/L (98-107); Creatinine, Serum 1.74 mg/dL (0.55-1.02); EST Glomerular Filtration Rate 31 mL/min (>60); Est Glom Filt Rate - Afr Amer 38 mL/min (>60); Globulin 3.7 g/dL (2.2-4.2); Glucose 285 mg/dL (74-106); Potassium 4.9 mmol/L (3.5-5.1); Protein, Total 6.9 g/dL (6.4-8.2); Sodium Level 136 mmol/L (136-145); Troponin-I HS 13 pg/mL (3.0-54.0)
[2023-09-18 15:06] LABS: Lactic Acid 2.3 mmol/L (0.4-1.9)
[2023-09-18 15:11] LABS: Color, Urine Yellow (Yellow); Glucose, Dipstick 100 mg/dl (Normal); Ketone-Dipstick Negative (Negative); Leukocyte Esterase-Dipstick Negative /ul (Negative); Nitrite-Dipstick Negative (Negative); Occult Blood-Urine 25 /ul (Negative); Protein-Dipstick 100 mg/dl (Negative); Urine Bilirubin Dipstick Negative (Negative); Urine Clarity Clear (Clear); Urine Urobilinogen Normal (Normal)
[2023-09-18 15:18] LABS: Squamous Epithelial Cells - UA 0-5 SEEN /hpf (5-10); White Blood Cells 0-5 SEEN /hpf (0-5)
[2023-09-18 15:19] LABS: Bacteria RARE /hpf (None Seen); Red Blood Cells-Urine 0-5 SEEN /hpf (0-5)
[2023-09-18 15:48] LABS: Blood Gas Specimen Type VEN; O2 Delivery Device Not entered; SITE Not entered; VBG BASE EXCESS 0 mmol/L (-1.0-3.5); VBG Bicarbonate 28 mmol/L (22-26); VBG PO2 38 mmHg (25-40); VBG SO2 58 % (50-70); VBG TCO2 30 mmol/L (23-33); VBG pCO2 70.2 mmHg (41-51)
--- NOTE | 2023-09-18 16:04 | CPS ---
RT called to do a VBG on pt. VBG shows a PH of 7.2 and a CO2 of 70. RT talk to Dr Alexandre about placing pt on BIPAP at this time. RT went to talk to PT, Pt and partner at bedside. Pt states she is very claustrophobic and is not able to wear the mask. RT talked to Dr VIDEO GAME ANIMATOR and almond blancher.
--- NOTE | 2023-09-18 16:48 | NURSING ---
PCU KITTOE ALTERED MENTAL STATUS, HYPERCAPNIA, HYPOXIA, HYPERGLYCEMIA, DEHYDRATION
--- NOTE | 2023-09-18 16:58 | HP.PCM.HOS_ITS ---
HPI - General General Date of Admission: 09/18/23 Date of Service: 09/18/23 Chief Complaint: Generalized weakness HPI Narrative ASHLEY MÉNDEZ, is a 63 F with multiple comorbidities including ulcerative colitis status post ileostomy with short gut syndrome, COPD, obstructive sleep apnea,Who presented with progressive generalized weakness. Patient symptoms started a couple of days prior to her admission. Per documentation from the EMS chart patient had apparently not used her insulin for 3 days. She also reported being confused. She was found to be hypercapnic in the ED offered BiPAP which she apparently declined. Her level of sensorium was improving at the time of my evaluation.Patient was found to have lactic acidosis however she had no evidence of any infection (patient is on metformin) [facility] Medical History (Updated 09/18/23 @ 16:43 by DERIC Solorio) Health care maintenance History of stress test Fungal dermatitis Herpes genitalia Post-menopausal Rash Back pain Arthritis Ambulates with cane History of renal disease High cholesterol Dietary restriction History of pain when walking History of echocardiogram Tremor Depression Chronic pain Rheumatoid arthritis Sleep apnea Congestive heart failure (CHF) Malaise and fatigue Vitamin B12 deficiency History of CAD (coronary artery disease) Anxiety and depression CAD (coronary artery disease) Cellulitis, abdominal wall Left shoulder pain Vitamin D deficiency Acute kidney injury CKD (chronic kidney disease), stage IV High output ileostomy MGUS (monoclonal gammopathy of unknown significance) Elevated anti-tissue transglutaminase (tTG) IgA level Ileostomy present Short bowel syndrome Loss of hearing Wears glasses History of COVID-19 Anxiety Insulin dependent diabetes mellitus Walker as ambulation aid Fatty liver Migraine headache Hx of diabetic gastroparesis Gastric reflux Former smoker BiPAP (biphasic positive airway pressure) dependence Hypertension Cardiology follow-up encounter Myoclonic jerking Chronic narcotic use Avascular necrosis of bone of left hip Chronic back pain Non-alcoholic fatty liver disease Liver mass Ulcerative colitis Nonalcoholic steatohepatitis Chronic respiratory failure Smoking greater than 20 pack years Obesity Chronic respiratory failure with hypoxia, on home O2 therapy Diabetic gastroparesis Secondary pulmonary arterial hypertension Chronic diastolic (congestive) heart failure Type 2 diabetes mellitus with diabetic polyneuropathy BMI 31.0-31.9,adult Depression with anxiety Arthritis Menieres disease Hyperlipidemia Psoriasis Obstructive sleep apnea COPD (chronic obstructive pulmonary disease) FCHL (familial combined hyperlipidemia) DM2 (diabetes mellitus, type 2) Home Medications ?Medication ?Instructions ?Recorded ?Last Taken ?Type duloxetine 30 mg capsule,delayed 30 mg PO DAILY depression 10/06/21 05/30/23 History release Wheel Chair 11/15/21 Unknown History blood sugar diagnostic (True 11/15/21 Unknown History Metrix Glucose Test Strip) blood-glucose meter,continuous 11/15/21 Unknown History (Dexcom G6 Electrical Estimator) pen needle, diabetic 32 gauge x 11/15/21 Unknown History (BD Ultra-Fine Key Pen Needle) nitroglycerin 0.4 mg sublingual 0.4 mg sublingual Q5-15M PRN chest 11/20/21 Unknown Rx tablet pain #25 tabs ostomy supplies #1 ea 02/13/22 Unknown Rx Handicap Placard #1 ea 09/16/22 Unknown Rx isosorbide dinitrate 30 mg tablet 30 mg PO BID heart #60 tabs 12/11/22 05/30/23 Rx Juanita Cohesive Seal 2 diameter #15 ea 01/18/23 Unknown Rx Esenta Sting Free Adhesive Remover #15 ea 01/18/23 Unknown Rx Wipe - Esenta Sting Free Skin Barrier #15 ea 01/18/23 Unknown Rx Merritt, 50 mL - Esteem + Convex One-Piece #15 ea 01/18/23 Unknown Rx Drainable Pre-Cut Pouch w/visiClose, Durahesive, 12 panel [place], 1 03/15 clopidogrel 75 mg tablet 75 mg PO DAILY heart health #90 02/04/23 05/27/23 Rx tabs blood sugar diagnostic (True #100 ea 02/08/23 Unknown Rx Metrix Glucose Test Strip) melatonin 5 mg tablet 5 mg PO HS sleep 02/10/23 04/30/23 History cyclobenzaprine 10 mg tablet 10 mg PO TID PRN muscle spasm #30 02/24/23 04/30/23 Rx tabs benzonatate 200 mg capsule 200 mg PO BID PRN cough #30 caps 03/10/23 Unknown Rx trazodone 50 mg tablet 50 mg PO QHS sleep 03/18/23 04/30/23 History cholestyramine (with sugar) 4 gram 4 g PO BIDAC stool #60 ea 03/31/23 04/30/23 Rx powder for susp in a packet insulin lispro 200 unit/mL (3 mL) 160 unit (0.8 mL) subcut DAILY 04/21/23 05/30/23 Rx subcutaneous pen (Humalog KwleoncioPen diabetes #72 mL U-200 Insulin) metoprolol tartrate 25 mg tablet 25 mg PO .COMPLEX bp #180 tabs 04/29/23 05/30/23 Rx pantoprazole 40 mg tablet,delayed 40 mg PO BID GERD #60 tabs 04/29/23 05/30/23 Rx release (Protonix) albuterol sulfate 90 mcg/actuation 2 puff inhalation BID PRN SOB 05/01/23 Unknown History aerosol inhaler duloxetine 60 mg capsule,delayed 60 mg PO DAILY depression 05/01/23 05/30/23 History release lamotrigine 200 mg tablet 200 mg PO DAILY 05/01/23 05/30/23 History dicyclomine 10 mg capsule 10 mg PO BID 30 days #60 caps 05/03/23 05/30/23 Rx blood-glucose sensor (Dexcom G6 #9 ea 06/10/23 Unknown Rx Sensor device) valacyclovir 500 mg tablet 500 mg PO DAILY #7 tabs 06/16/23 Unknown Rx diphenoxylate-atropine 2.5 1 tab PO TID PRN diarrhea 06/21/23 Unknown History mg-0.025 mg tablet (Lomotil) blood-glucose transmitter (Dexcom #1 ea 07/09/23 Unknown Rx G6 Transmitter device) insulin pump cart,automated,BT #45 ea 07/14/23 Unknown Rx (Omnipod 5 G6 Pods (Gen 5) subcutaneous cartridge) atorvastatin 80 mg tablet 80 mg PO QHS CHOLESTEROL LOWERING 07/22/23 Unknown Rx #90 tabs metoprolol tartrate 50 mg tablet 50 mg PO .COMPLEX blood pressure 07/22/23 Unknown Rx #180 tabs buprenorphine HCl 150 mcg buccal 150 mcg buccal Q12H 08/04/23 Unknown History film cholecalciferol (vitamin D3) 50 100 mcg (2 x 50 mcg (2,000 unit)) 08/12/23 Unknown Rx mcg (2,000 unit) capsule PO DAILY #60 caps tramadol 50 mg tablet 50 mg PO BID PRN pain 08/12/23 Unknown History aspirin 81 mg tablet,delayed 81 mg PO DAILY heart health 08/16/23 Unknown History release cholecalciferol (vitamin D3) 1,250 1,250 mcg PO QWEEK #4 caps 08/18/23 Unknown Rx mcg (50,000 unit) capsule donepezil 10 mg tablet 10 mg PO QHS #30 tabs 08/18/23 Unknown Rx donepezil 5 mg tablet 5 mg PO QHS #30 tabs 08/18/23 Unknown Rx pregabalin 75 mg capsule 75 mg PO BID #56 caps 09/15/23 Unknown Rx Allergy/AdvReac Type Severity Reaction Status Date / Time cinnamon (Cinnamon) Allergy Severe Anaphylaxis Verified 09/18/23 17:02 Influenza Virus Vaccines Allergy Severe Shortness Verified 09/18/23 17:02 of breath liraglutide (From Victoza) Allergy Severe Anaphylaxis Verified 09/18/23 17:02 ciprofloxacin Allergy Intermediate Swelling Verified 09/18/23 17:02 metformin (From Glucophage) Allergy Mild Nausea Verified 09/18/23 17:02 metronidazole (From Flagyl) Allergy Hives Verified 09/18/23 17:02 Metronidazole HCl (From Allergy Hives Verified 09/18/23 17:02 Flagyl) Penicillins Allergy Hives Verified 09/18/23 17:02 Sulfa (Sulfonamide Allergy Hives Verified 09/18/23 17:02 Antibiotics) aripiprazole (From Abilify) AdvReac hallucinati Verified 09/18/23 17:02 ons metformin HCl (From AdvReac Nausea Verified 09/18/23 17:02 Glucophage) ranolazine AdvReac Nausea/Vom/ Verified 09/18/23 17:02 Diarrhea Kohjttt-NRB-EjI Reductase AdvReac Nausea/joints Verified 09/18/23 17:02 Inhibitor (Wskrlor-Uno-Tae ache Reductase Inhibitor) Family History Mother CVA (cerebral vascular accident) Diabetes Brother Heart disease of CAD at 65 Myocardial infarction Pancreatitis Father Cancer lymphomia Lymphoma Grandmother Myocardial infarction of MD in her 70s Sister COPD (chronic obstructive pulmonary disease) Surgical History History of colonoscopy History of esophagogastroduodenoscopy (EGD) History of appendectomy History of coronary artery stent placement Status post total hip replacement, left History of cardiac catheterization History of History of cholecystectomy H/O coronary artery bypass surgery (05/18/12) History of coronary artery stent placement (01/12/18) H/O sinus surgery history closed fissure Ileostomy status H/O colectomy left thumb surgery H/O total hysterectomy ileostomy Social History household members: none Smoking Status: Former smoker quit date: 03/08/12 how long ago did patient quit smoking: quit in 2012; 0.5-1ppd x 30yrs alcohol intake: never substance use type: does not use diet: diabetic caffeine: No eating out: 1-3 times/week what type of physical activity do you participate in: none seatbelt use: always do you feel safe at home: Yes ROS ROS Narrative GENERAL: Generalized weakness HEENT: denies headache, sinus congestion, RESPIRATORY: denies cough, sputum production, CARDIAC: denies chest pain, palpitations, orthopnea, PND GASTROINTESTINAL: Abdominal cramps and nausea, GENITOURINARY: denies dysuria, urgency, frequency, heamaturia EXTREMITY: denies swelling MUSCULOSKELETAL: denies current joint pain or tenderness NEUROLOGIC: denies focal numbness, weakness, tingling HEMATOLOGIC: denies easy bruising and/or hemorrhage INTEGUMENT: denies rashes PSYCHIATRIC: denies suicidal or homicidal ideation Vital Signs Vital Signs Vital Signs: 09/18/23 13:01 09/18/23 13:57 09/18/23 14:21 Temperature 96.5 F L Temperature Source Temporal Pulse Rate 61 62 Respiratory Rate 14 16 Respiratory Effort Normal Respiratory Pattern Normal Normal Blood Pressure 144/61 H Blood Pressure Mean 88 Pulse Ox 93 Oxygen Delivery Method Room Air 09/18/23 15:00 09/18/23 15:19 Temperature Temperature Source Pulse Rate 62 Respiratory Rate 16 Respiratory Effort Respiratory Pattern Blood Pressure 168/75 H Blood Pressure Mean 106 Pulse Ox 88 88 Oxygen Delivery Method Room Air Nasal Cannula Weight Weight: 97.9 kg Body Mass Index (BMI) 33.7 Physical Exam Narrative GENERAL: cooperative HEENT: Atraumatic; normocephalic EYES; Anicteric, Normal Conjunctiva NECK; supple, normal thyroid, RESPIRATORY: Diminished to auscultation CARDIOVASCULAR: Regular S1 S2, GI: soft, normoactive bowel sounds, ileostomy left lower quadrant : No Renal angle tenderness; EXTREMITIES: No edema, no clubbing, MUSCULOSKELETAL: no muscle wasting NEURO: Awake; no lateralizing signs. SKIN: No Rash PSYCH; Flat affect Results Lab / Micro Data 09/18/23 14:19 09/18/23 14:19 Labs: Laboratory Results - last 24 hr 09/18/23 14:19: WBC 6.6, RBC 4.32, Hgb 11.9 L, Hct 37.5, MCV 86.8, MCH 27.5, M CHC 31.7 L, RDW Std Deviation 50.2 H, RDW Coeff of Jan 16.5 H, Plt Count 156, MPV 11.8, Immature Gran % (Auto) 1.400 H, Neut % (Auto) 50.4, Lymph % (Auto) 37.7, [place] % (Auto) 5.9, Eos % (Auto) 3.5, Baso % (Auto) 1.1 H, Absolute Neuts (auto) 3.3, Absolute Lymphs (auto) 2.48, Nucleated RBC % 0, Sodium 136, Potassium 4.9, Chloride 103, Carbon Dioxide 29.0, Anion Gap 4 L, BUN 23 H, C reatinine 1.74 H, Est GFR (MDRD) Af Amer 38 L, Est GFR (MDRD) Non-Af 31 L, BUN/Creatinine Ratio 13.2, Glucose 285 H, Lactic Acid 2.3 H*, Calcium 9.0, Total Bilirubin 0.90, AST 22, ALT 21, Alkaline Phosphatase 132 H, Troponin I High Sens 13, Total Protein 6.9, Albumin 3.2, Globulin 3.7, Albumin/Globulin Ratio 0.9, Acetone Level NEGATIVE 09/18/23 14:35: Urine Color Yellow, Urine Clarity Clear, Urine pH 6.0, Ur Specific [place] 1.020, Urine Protein 100 H, Urine Glucose (UA) 100 H, Urine Ketones Negative, Urine Occult Blood 25 H, Urine Nitrite Negative, Urine Bilirubin Negative, Urine Urobilinogen Normal, Ur Leukocyte Esterase Negative, Urine RBC 0-5 SEEN, Urine WBC 0-5 SEEN, Ur Squamous Epith Cells 0-5 SEEN, Urine Bacteria RARE, Urine Mucus 0 SEEN Micro: Microbiology 09/18/23 14:25 Mucosa - Nasopharyngeal SARS-CoV-2, Influenza & RSV (PCR) - Final ABG Data ABG results: ABG 09/18/23 15:43 Specimen Type PAMELA Sample Site Not entered VBG pH 7.20 L VBG pO2 38 VBG HCO3 28 H VBG Total CO2 30 VBG O2 Sat (Calc) 58 VBG Base Excess 0 POC Mix VBG pCO2 Pt Tmp 70.2 H* O2 Delivery Device Not entered Crit Call To/Read Back Yes Blood Gas Notified Whom jk Blood Gas Notified Time 15:44:36 Imaging Radiology Impression Chest X-Ray 09/18/23 13:38 IMPRESSION: No radiographic evidence of acute cardiopulmonary disease. Electronically Signed: Usman Perez MD at 15:41 EDT , Assessment & Plan Assessment/Plan (1) Hypercapnia: PLAN: Plan Patient is a 62-year-old female with extensive past medical history presenting with progressive generalized weakness and altered mental status 1. Acute metabolic encephalopathy ? Multifactorial including hypercapnia, acute on chronic kidney disease. Patient has been admitted to a monitored bed for treatment of the underlying etiology 2. Acute hypercapnic respiratory failure ? Secondary to combination of COPD as well as obstructive sleep apnea. Patient pCO2 from from her VBG was greater than 70. Offered BiPAP patient declined. Did initiate bronchodilator regimen in the in addition to inhaled corticosteroids 3. Chronic kidney disease stage III ? Kidney function at baseline 4. Diabetes mellitus type 2 ?Patient was previously on insulin pump per her home meds she is currently on long-acting insulin which she had not taking for 3 days. Plan is to resume once home medications have been reconciled. Was also placed on Accu-Cheks before meals and at bedtime with sliding scale coverage 5. GERD ? On PPI 6. Coronary artery disease -Has history of CABG and subsequent stent placement. Patient is on guideline directed medical therapy 7. MGUS ? Patient is followed by oncology as outpatient 8. History of ulcerative colitis ? Status post ileostomy with resultant short gut syndrome 9. Essential hypertension ? Patient antihypertensives held given her relatively low blood pressure 10. Chronic pain syndrome ?Did continue patient pain regimen 11. Depression ? Patient is on duloxetine 12. Psoriasis ? Patient had previously been treated with Humira taking off during the COVID pandemic 13. Gastroparesis ? Patient patient was previously on Reglan has since been discontinued 14. DVT prophylaxis ? SC heparin Time spent in the patient's overall evaluation,decision-making process, review of diagnostic data, adjustment of management, discussion with other providers, nursing nursing and ancillary staff involved in patient's care documentation, 75 minutes Advance planning; did discuss with the patient and family regarding advanced directives as well as CODE STATUS. Did explain the various scenarios involved ( FULL CODE, DNR CCA, DNR CCA with no intubation, and DNR CC and what each meant) patient elected to remain full code with CPR and intubation if needed. Order was placed. Time spent on discussion 16 minutes. Charges/Coding Multi Select Codes Visit Charges Visit Charges: 66442 [address]ists[address] Procedures Procedures: 25840 Advncd Care Plan 30 Min
[2023-09-18 18:24] LABS: Reflex Lactate? Y
[2023-09-18] MEDS: 0.9% Normal Saline (1000mL) 1,000 ML 100 ML IV (18:34)
[2023-09-18 18:56] LABS: Bedside Glucose 168 mg/dL (74-106)
[2023-09-18 19:53] LABS: Lactic Acid 2.2 mmol/L (0.4-1.9)
[2023-09-18] MEDS: Budesonide Respules 0.5 MG/2 ML AMPUL.NEB. INHALATION (20:00)
[2023-09-18] MEDS: Acetaminophen 325 MG Tablet 650 MG PO (20:34)
[2023-09-18] MEDS: CLARIFY ORDER 1 EACH NOTE (20:34)
[2023-09-18] MEDS: Isosorbide DN 30 MG Tablet PO (20:44)
[2023-09-18] MEDS: Donepezil HCl 10 MG Tablet PO (20:44)
[2023-09-18] MEDS: Heparin Injection (Vial) 5,000 UNIT/ML VIAL 5000 UNIT SC (20:44)
[2023-09-18] MEDS: DULoxetine Hcl 60 MG Capsule PO (20:44)
[2023-09-18] MEDS: Pregabalin 75 MG Capsule PO (20:45)
[2023-09-18] MEDS: Metoprolol Tartrate 25 MG Tablet PO (20:45)
[2023-09-18] MEDS: Atorvastatin Calcium 80 MG Tablet PO (20:46)
[2023-09-18] MEDS: Metoprolol Tartrate 50 MG Tablet PO (20:46)
[2023-09-18] MEDS: Dicyclomine 10 MG Capsule PO (20:46)
[2023-09-18] MEDS: Pantoprazole Sodium 40 MG Tablet PO (20:47)
[2023-09-18] MEDS: traZODone 50 MG Tablet PO (20:47)
[2023-09-18] MEDS: Buprenorphine 10 MCG PATCH.TDWK 1 PATCH TD (20:48)
[2023-09-18] MEDS: Insulin Glargine-YFGN 100 UNIT/ML Pen 25 UNIT SC (20:54)
[2023-09-18] MEDS: Insulin Lispro 100 UNIT/ML INSULN.PEN SC (21:06)
[2023-09-18 21:49] LABS: Bedside Glucose 161 mg/dL (74-106)
[2023-09-19] VITALS (24 sets, daily range): BP systolic 126–198; BP diastolic 48–82; PULSE 63–98; RESP 16–20; TEMP 36.6–36.9; O2SAT 89–97
[2023-09-19] MEDS: fentaNYL 100 MCG/2 ML Ampul 25 MCG IV (04:40)
[2023-09-19] MEDS: 0.9% Normal Saline (1000mL) 1,000 ML 100 ML IV (04:42)
[2023-09-19] MEDS: 0.9% Saline Lock 10 ML Syringe IV ×2 (04:43→18:56)
[2023-09-19] MEDS: Buprenorphine 5 MCG PATCH.TDWK 1 PATCH TD (05:15)
[2023-09-19 06:34] LABS: Absolute Lymphocyte Count 1.88 X10^3/uL (0.83-4.51); Absolute Neutrophil Count 2.7 X10^3/uL (2.0-7.7); Basophil# 0.05 X10^3/uL; Eosinophils% 3.8 % (0-5); Hematocrit 33.7 % (37-47); Hemoglobin 10.4 g/dL (12.0-15.0); Lymphocyte # 1.88 X10^3/ul (0.83-4.51); Lymphocyte % 35.9 % (19-41); Mean Corp Hgb Conc 30.9 g/dL (32-36); Mean Corpuscular Hgb 26.9 pg (27.0-32.0); Mean Corpuscular Volume 87.3 fL (81-99); Mean Platelet Vol. 11.7 fl (6.2-12.0); Monocyte# 0.33 X10^3/uL; Monocyte% 6.3 % (0-10); NRBC Flagged by Analyzer 0.4 % (0-5); Neutrophil # 2.73 X10^3/uL (2.7-7.7); Platelet Count 147 K/mm3 (150-450); RBC Distribution Width CV 16.5 % (11.6-14.6); RBC Distribution Width SD 50.1 fl (35.1-43.9); Red Blood Count 3.86 M/mm3 (4.2-5.4); White Blood Count 5.2 K/mm3 (4.4-11.0)
[2023-09-19] MEDS: Insulin Lispro 100 UNIT/ML INSULN.PEN SC ×4 (06:38→20:55)
[2023-09-19 06:57] LABS: Bedside Glucose 200 mg/dL (74-106)
[2023-09-19 06:58] LABS: Anion Gap 5 (5-15); BUN 20 mg/dL (7-18); BUN/Creat Ratio 13.2 RATIO (10-20); Calcium,Total 8.4 mg/dL (8.5-10.1); Chloride 107 mmol/L (98-107); Creatinine, Serum 1.52 mg/dL (0.55-1.02); EST Glomerular Filtration Rate 37 mL/min (>60); Est Glom Filt Rate - Afr Amer 44 mL/min (>60); Estimated Creatinine Clearance 44.08 ml/min; Glucose 235 mg/dL (74-106); Magnesium 1.3 mg/dL (1.6-2.6); Potassium 4.2 mmol/L (3.5-5.1); Sodium Level 138 mmol/L (136-145)
[2023-09-19] MEDS: Ipratropium/Albuterol Sulfate 3 ML AMPUL.NEB INHALATION ×4 (06:59→19:42)
[2023-09-19] MEDS: Budesonide Respules 0.5 MG/2 ML AMPUL.NEB. INHALATION ×2 (06:59→19:42)
[2023-09-19 07:03] LABS: Phosphorus 3.7 mg/dL (2.5-4.9)
--- NOTE | 2023-09-19 08:14 | PN.HOSP_ITS ---
Reason for Visit Reason for Visit: Diagnoses Other abnormalities of breathing (09/18/23) Subjective Subjective Complains of pain in left hip extending down her left leg. Also complaining of several day history of a migraine in her forehead. Has had a history of migraines before. Objective Data Objective Data Vital Signs: Vital Signs Temp Pulse Resp BP Pulse Ox O2 Del Method O2 Flow Rate 36.6 C 63 18 126/48 H 97 Nasal Cannula 2 09/19/23 03:18 09/19/23 03:18 09/19/23 03:18 09/19/23 03:18 09/19/23 03:18 09/19/23 03:18 09/19/23 03:18 FiO2 21 09/19/23 00:17 Oxygen Flow Rate (L/min) 2 Oxygen Delivery Method Nasal Cannula Weight: 96.785 kg Body Mass Index (BMI) 33.4 Intake & Output: Intake and Output for Last 24 Hours 09/17/23 09/18/23 09/19/23 23:59 23:59 23:59 Intake Total 1000 / 1000 1000 / 1000 Balance 1000 / 1000 1000 / 1000 Lab / Micro Data 09/19/23 06:00 09/19/23 06:00 Labs: Laboratory Results - last 24 hr 09/18/23 14:19: WBC 6.6, RBC 4.32, Hgb 11.9 L, Hct 37.5, MCV 86.8, MCH 27.5, M CHC 31.7 L, RDW Std Deviation 50.2 H, RDW Coeff of Jan 16.5 H, Plt Count 156, MPV 11.8, Immature Gran % (Auto) 1.400 H, Neut % (Auto) 50.4, Lymph % (Auto) 37.7, [place] % (Auto) 5.9, Eos % (Auto) 3.5, Baso % (Auto) 1.1 H, Absolute Neuts (auto) 3.3, Absolute Lymphs (auto) 2.48, Nucleated RBC % 0, Sodium 136, Potassium 4.9, Chloride 103, Carbon Dioxide 29.0, Anion Gap 4 L, BUN 23 H, C reatinine 1.74 H, Est GFR (MDRD) Af Amer 38 L, Est GFR (MDRD) Non-Af 31 L, BUN/Creatinine Ratio 13.2, Glucose 285 H, Lactic Acid 2.3 H*, Calcium 9.0, Total Bilirubin 0.90, AST 22, ALT 21, Alkaline Phosphatase 132 H, Troponin I High Sens 13, Total Protein 6.9, Albumin 3.2, Globulin 3.7, Albumin/Globulin Ratio 0.9, Acetone Level NEGATIVE 09/18/23 14:35: Urine Color Yellow, Urine Clarity Clear, Urine pH 6.0, Ur Specific [place] 1.020, Urine Protein 100 H, Urine Glucose (UA) 100 H, Urine Ketones Negative, Urine Occult Blood 25 H, Urine Nitrite Negative, Urine Bilirubin Negative, Urine Urobilinogen Normal, Ur Leukocyte Esterase Negative, Urine RBC 0-5 SEEN, Urine WBC 0-5 SEEN, Ur Squamous Epith Cells 0-5 SEEN, Urine Bacteria RARE, Urine Mucus 0 SEEN 09/18/23 18:24: Lactic Acid 2.2 H* 09/18/23 18:36: POC Glucose 168 H 09/18/23 20:53: POC Glucose 161 H 09/19/23 06:00: WBC 5.2, RBC 3.86 L, Hgb 10.4 L, Hct 33.7 L, MCV 87.3, MCH 26.9 L, MCHC 30.9 L, RDW Std Deviation 50.1 H, RDW Coeff of Jan 16.5 H, Plt Count 147 L, MPV 11.7, Immature Gran % (Auto) 1.000 H, Neut % (Auto) 52.0, Lymph % (Auto) 35.9, [place] % (Auto) 6.3, Eos % (Auto) 3.8, Baso % (Auto) 1.0, Absolute Neuts (auto) 2.7, Absolute Lymphs (auto) 1.88, Nucleated RBC % 0.4, Sodium 138, Potassium 4.2, Chloride 107, Carbon Dioxide 26.0, Anion Gap 5, BUN 20 H, C reatinine 1.52 H, Estim Creat Clear Calc 44.08, Est GFR (MDRD) Af Amer 44 L, Est GFR (MDRD) Non-Af 37 L, BUN/Creatinine Ratio 13.2, Glucose 235 H, Calcium 8.4 L, Phosphorus 3.7, Magnesium 1.3 L 09/19/23 06:35: POC Glucose 200 H Micro: Microbiology 09/18/23 17:16 Mucosa - Nose Respiratory Panel (PCR) - Final 09/18/23 14:25 Mucosa - Nasopharyngeal SARS-CoV-2, Influenza & RSV (PCR) - Final ABG Data ABG results: ABG 09/18/23 15:43 Specimen Type PAMELA Sample Site Not entered VBG pH 7.20 L VBG pO2 38 VBG HCO3 28 H VBG Total CO2 30 VBG O2 Sat (Calc) 58 VBG Base Excess 0 POC Mix VBG pCO2 Pt Tmp 70.2 H* O2 Delivery Device Not entered Crit Call To/Read Back Yes Blood Gas Notified Whom jk Blood Gas Notified Time 15:44:36 Radiography Diagnostic Testing: Radiology Impression Chest X-Ray 09/18/23 13:38 IMPRESSION: No radiographic evidence of acute cardiopulmonary disease. Electronically Signed: Usman Perez MD at 15:41 EDT , Physical Exam Const alert and no apparent distress HEENT head/scalp atraumatic and moist oral mucous membranes Resp normal respiratory effort, no retractions, no use of accessory muscles and clear to auscultation bilaterally Cardio regular rate, regular rhythm, S1 normal heart sound and S2 normal heart sound GI normal to inspection, nondistended, normoactive bowel sounds, soft to palpation, non-tender and non-distended Extremity normal to inspection and full ROM Neuro Sensorium / Orientation: awake and alert Assessment & Plan Assessment/Plan (1) Hypercapnia: PLAN: Plan Confusion and weakness. * reported by family. No observed confusion by ED physician or admitting hospitalist. Patient appears compensated at this time. * likely due to dehydration, however complicated by multifactorial factors due to chronic hypercapnia, insulin pump malfunction, medications (buprenorphine patch, cyclobenzaprine, donezepil, duloxetine, pregabalin). CO2 narcosis. Venous blood gas showed a pCO2 of 70.2. * RALPH ruled out (pt does have CKD, however) * BiPAP apparently was offered, but pt declined. * PT OT evaluate and treat Acute hypercapnic respiratory failure * ruled out. * Pt hypercapnic on VBG, but no respiratory distress documented, nor any tachypnea reported. * Patient has been using CPAP for few hours at night but normally does not use it. Diabetes mellitus type 2 * insulin-dependent. * Insulin-pump was malfunctioning had not received insulin 3 days prior to presentation. * Currently on glargine 25 units BID. SSI. * check an a1c Lactic acidosis * Unclear significance. Patient does not take metformin. Urinalysis was unremarkable though specific gravity was high which could reflect dehydration. Patient did receive a bolus of normal saline in the emergency room and currently on normal saline at 100 cc/h. * No white count. Chest x-ray negative for any sign of infection. * No additional work up at this time. Migraine * add triptan x1 Sciatica * start prednisone * Has had several epidural injections without any significant relief with Dr. Wright Chronic conditions: * GERD: PPI * Coronary artery disease: Continue with aspirin, clopidogrel, high intensity statin. 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 Chronically takes loperamide PRN, PPI and Lomotil QID VTE prophylaxis: SC heparin Charges/Coding Visit Charges Inpatient E&M: 11775 Subs Hosp L2
[2023-09-19] MEDS: Clopidogrel Bisulfate 75 MG Tablet PO (09:34)
[2023-09-19] MEDS: Aspirin E.C. 81 MG Tablet PO (09:34)
[2023-09-19] MEDS: Pantoprazole Sodium 40 MG Tablet PO ×2 (09:34→20:52)
[2023-09-19] MEDS: lamoTRIgine 100 MG Tablet 200 MG PO (09:34)
[2023-09-19] MEDS: Dicyclomine 10 MG Capsule PO ×2 (09:34→20:52)
[2023-09-19] MEDS: Heparin Injection (Vial) 5,000 UNIT/ML VIAL 5000 UNIT SC ×2 (09:34→21:00)
[2023-09-19] MEDS: Isosorbide DN 30 MG Tablet PO ×2 (09:34→20:54)
[2023-09-19] MEDS: DULoxetine Hcl 60 MG Capsule PO ×2 (09:35→20:52)
[2023-09-19] MEDS: Metoprolol Tartrate 25 MG Tablet PO ×2 (09:35→20:53)
[2023-09-19] MEDS: Metoprolol Tartrate 50 MG Tablet PO ×2 (09:35→20:53)
[2023-09-19] MEDS: Acetaminophen 325 MG Tablet 650 MG PO (09:42)
[2023-09-19] MEDS: Pregabalin 75 MG Capsule PO ×2 (09:42→20:51)
[2023-09-19] MEDS: Insulin Glargine-YFGN 100 UNIT/ML Pen 25 UNIT SC ×2 (09:45→20:55)
--- NOTE | 2023-09-19 12:50 | NURSING ---
This RN looked for x2 Butrans patches that were documented to be on pt, per pt felt one of patches on back pulling while in bed. This RN found x1, 5 mcg Butrans patch in bed. as came off while pt sleeping or transferring into chair. This RN disposed of and notified Dr. Chandler, as may need another x1 dose to apply.
[2023-09-19 12:55] LABS: Bedside Glucose 255 mg/dL (74-106)
[2023-09-19] MEDS: traMADol 50 MG Tablet 100 MG PO (13:57)
[2023-09-19] MEDS: predniSONE 20 MG Tablet 40 MG PO (13:57)
[2023-09-19] MEDS: SUMAtriptan 6 MG/0.5 ML Vial SC (13:58)
[2023-09-19] MEDS: Ondansetron 4 MG/2 ML Vial IV (14:04)
[2023-09-19 16:22] LABS: Bedside Glucose 229 mg/dL (74-106)
[2023-09-19] MEDS: hydrALAZINE 20 MG/ML Vial 10 MG IV (18:56)
[2023-09-19] MEDS: Diphenoxylate/Atrop 1 Tablet PO (20:52)
[2023-09-19] MEDS: traZODone 50 MG Tablet PO (20:52)
[2023-09-19] MEDS: Atorvastatin Calcium 80 MG Tablet PO (20:54)
[2023-09-19] MEDS: Donepezil HCl 10 MG Tablet PO (20:54)
[2023-09-19 23:33] LABS: Bedside Glucose 342 mg/dL (74-106)
[2023-09-19 23:33] LABS: Bedside Glucose 400 mg/dL (74-106)
[2023-09-20] VITALS (9 sets, daily range): BP systolic 152–172; BP diastolic 65–97; PULSE 75–93; RESP 16–21; TEMP 36.4–36.8; O2SAT 87–98
--- NOTE | 2023-09-20 00:08 | PN.HOSP_ITS ---
Hospitalist Note Patient with blood sugar assessment 09/19/2023 at 2050 of 342, her evening long- acting and short acting for insulin sliding scale administered at that time. Patient called out to nursing staff at this time and notes that her monitor is reading 400 which was double checked checked with hospital protocol and is consistent. Will administer 10 units subcu short acting insulin at this time and requested nursing staff to repeat trigger assessment in 1 hour.
[2023-09-20] MEDS: Insulin Lispro 100 UNIT/ML INSULN.PEN 10 UNIT SC (00:28)
[2023-09-20 02:02] LABS: Bedside Glucose 333 mg/dL (74-106)
[2023-09-20] MEDS: Insulin Lispro 100 UNIT/ML INSULN.PEN SC ×2 (06:27→11:07)
[2023-09-20 06:47] LABS: Bedside Glucose 243 mg/dL (74-106)
[2023-09-20] MEDS: Budesonide Respules 0.5 MG/2 ML AMPUL.NEB. INHALATION (07:08)
[2023-09-20] MEDS: Ipratropium/Albuterol Sulfate 3 ML AMPUL.NEB INHALATION (07:08)
--- NOTE | 2023-09-20 08:08 | PN.HOSP_ITS ---
Reason for Visit Reason for Visit: Diagnoses Other abnormalities of breathing (09/18/23) Subjective Subjective Headache resolved. Sciatica resolved. Does complain of the paresthesias in her feet. Objective Data Objective Data Vital Signs: Vital Signs Temp Pulse Resp BP Pulse Ox O2 Del Method O2 Flow Rate 36.4 C L 81 18 156/74 H 98 Room Air 2 09/20/23 05:19 09/20/23 07:09 09/20/23 07:09 09/20/23 05:19 09/20/23 07:09 09/20/23 07:09 09/19/23 12:29 FiO2 21 09/20/23 01:45 Oxygen Flow Rate (L/min) 2 Oxygen Delivery Method Room Air Weight: 96.785 kg Body Mass Index (BMI) 33.4 Intake & Output: Intake and Output for Last 24 Hours 09/18/23 09/19/23 09/20/23 23:59 23:59 23:59 Intake Total 1000 / 1000 2940 / 2940 Balance 1000 / 1000 2940 / 2940 Lab / Micro Data 09/19/23 06:00 09/19/23 06:00 Labs: Laboratory Results - last 24 hr 09/19/23 12:17: POC Glucose 255 H 09/19/23 16:04: POC Glucose 229 H 09/19/23 20:50: POC Glucose 342 H 09/19/23 23:13: POC Glucose 400 H 09/20/23 01:43: POC Glucose 333 H 09/20/23 06:26: POC Glucose 243 H Micro: Microbiology 09/18/23 17:16 Mucosa - Nose Respiratory Panel (PCR) - Final 09/18/23 14:25 Mucosa - Nasopharyngeal SARS-CoV-2, Influenza & RSV (PCR) - Final Physical Exam Const alert and no apparent distress HEENT head/scalp atraumatic and moist oral mucous membranes Resp normal respiratory effort, no retractions, no use of accessory muscles and clear to auscultation bilaterally Cardio regular rate, regular rhythm, S1 normal heart sound and S2 normal heart sound GI normal to inspection, nondistended, normoactive bowel sounds, soft to palpation, non-tender and non-distended Neuro Sensorium / Orientation: awake and alert Assessment & Plan Assessment/Plan (1) Hypercapnia: PLAN: Plan Confusion and weakness. * reported by family. No observed confusion by ED physician or admitting hospitalist. Patient appears compensated at this time. * likely due to dehydration, however complicated by multifactorial factors due to chronic hypercapnia, insulin pump malfunction, medications (buprenorphine patch, cyclobenzaprine, donezepil, duloxetine, pregabalin). CO2 narcosis. Venous blood gas showed a pCO2 of 70.2. * RALPH ruled out (pt does have CKD, however) * Patient states that she will be compliant with her CPAP but requesting new tubing and mask. Patient advised to follow-up with her alternative financing specialist to obtain those. * PT OT evaluate and treat Acute hypercapnic respiratory failure * ruled out. * Pt hypercapnic on VBG, but no respiratory distress documented, nor any tachypnea reported. * Patient has been using CPAP for few hours at night but normally does not use it. Diabetes mellitus type 2 * insulin-dependent. * Insulin-pump was malfunctioning had not received insulin 3 days prior to presentation. Patient states that she has a new pump and will have to call Dr. Dewitt's office to get the settings. * check an a1c Lactic acidosis * Unclear significance. Patient does not take metformin. Urinalysis was unremarkable though specific gravity was high which could reflect dehydration. Patient did receive a bolus of normal saline in the emergency room and currently on normal saline at 100 cc/h. * No white count. Chest x-ray negative for any sign of infection. * No additional work up at this time. Migraine * Resolved after having had triptan x1 09/18 Sciatica * start prednisone 09/18. Improving. * Has had several epidural injections without any significant relief with Dr. Wright * Patient has had falls is as mentioned by the individual in her room. Patient declining any therapy services at this time. Chronic conditions: * GERD: PPI * Coronary artery disease: Continue with aspirin, clopidogrel, high intensity statin. 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 Chronically takes loperamide PRN, PPI and Lomotil QID VTE prophylaxis: SC heparin
[2023-09-20] MEDS: Isosorbide DN 30 MG Tablet PO (10:55)
[2023-09-20] MEDS: lamoTRIgine 100 MG Tablet 200 MG PO (10:55)
[2023-09-20] MEDS: Clopidogrel Bisulfate 75 MG Tablet PO (10:55)
[2023-09-20] MEDS: predniSONE 20 MG Tablet 40 MG PO (10:55)
[2023-09-20] MEDS: Dicyclomine 10 MG Capsule PO (10:55)
[2023-09-20] MEDS: Metoprolol Tartrate 50 MG Tablet PO (10:55)
[2023-09-20] MEDS: Aspirin E.C. 81 MG Tablet PO (10:55)
[2023-09-20] MEDS: Pantoprazole Sodium 40 MG Tablet PO (10:55)
[2023-09-20] MEDS: DULoxetine Hcl 60 MG Capsule PO (10:56)
[2023-09-20] MEDS: Metoprolol Tartrate 25 MG Tablet PO (11:02)
[2023-09-20] MEDS: Pregabalin 75 MG Capsule PO (11:02)
[2023-09-20] MEDS: Insulin Glargine-YFGN 100 UNIT/ML Pen 25 UNIT SC (11:07)
--- NOTE | 2023-09-20 11:20 | PCM.DC.SUM ---
Providers Date of Admission: 09/18/23 Primary Care Physician: Dr. Mala Mcgrath MD Reason For Visit: ACUTE METABOLIC ENCEPHALOPATHY, HYPERCAPNIA Diagnosis Discharge Diagnosis (1) Hypercapnia: Status: Acute Code(s): R06.89 - Other abnormalities of breathing Plan Confusion and weakness. reported by family. No observed confusion by ED physician or admitting hospitalist. Patient appears compensated at this time. likely due to dehydration, however complicated by multifactorial factors due to chronic hypercapnia, insulin pump malfunction, medications (buprenorphine patch, cyclobenzaprine, donezepil, duloxetine, pregabalin). CO2 narcosis. Venous blood gas showed a pCO2 of 70.2. RALPH ruled out (pt does have CKD, however) Patient states that she will be compliant with her CPAP but requesting new tubing and mask. Patient advised to follow-up with her pot liner to obtain those. PT OT evaluate and treat Acute hypercapnic respiratory failure ruled out. Pt hypercapnic on VBG, but no respiratory distress documented, nor any tachypnea reported. Patient has been using CPAP for few hours at night but normally does not use it. Diabetes mellitus type 2 insulin-dependent. Insulin-pump was malfunctioning had not received insulin 3 days prior to presentation. Patient states that she has a new pump and will have to call Dr. Dewitt's office to get the settings. check an a1c Lactic acidosis Unclear significance. Patient does not take metformin. Urinalysis was unremarkable though specific gravity was high which could reflect dehydration. Patient did receive a bolus of normal saline in the emergency room and currently on normal saline at 100 cc/h. No white count. Chest x-ray negative for any sign of infection. No additional work up at this time. Migraine Resolved after having had triptan x1 09/18 Sciatica start prednisone 09/18. Improving. Has had several epidural injections without any significant relief with Dr. Wright Patient has had falls is as mentioned by the individual in her room. Patient declining any therapy services at this time. Chronic conditions: GERD: PPI Coronary artery disease: Continue with aspirin, clopidogrel, high intensity statin. 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 Chronically takes loperamide PRN, PPI and Lomotil QID VTE prophylaxis: SC heparin Medications at Discharge Home Medications duloxetine 30 mg capsule,delayed release 90 mg PO DAILY depression 10/06/21 Wheel Chair 11/15/21 blood sugar diagnostic (True Metrix Glucose Test Strip) 11/15/21 blood-glucose meter,continuous (Dexcom G6 Geology Professor) 11/15/21 pen needle, diabetic 32 gauge x 5/32 (BD Ultra-Fine Key Pen Needle) 11/15/21 nitroglycerin 0.4 mg sublingual tablet 0.4 mg sublingual Q5-15M PRN chest pain #25 tabs 11/20/21 ostomy supplies #1 ea 02/13/22 Handicap Placard #1 ea 09/16/22 isosorbide dinitrate 30 mg tablet 30 mg PO BID heart #60 tabs 12/11/22 Juanita Cohesive Seal 2 diameter #15 ea 01/18/23 Esenta Sting Free Adhesive Remover Wipe - #15 ea 01/18/23 Esenta Sting Free Skin Barrier [place], 50 mL - #15 ea 01/18/23 Esteem + Convex One-Piece Drainable Pre-Cut Pouch w/visiClose, Durahesive, 12 panel [place], 1 03/15 #15 ea 01/18/23 clopidogrel 75 mg tablet 75 mg PO DAILY heart health #90 tabs 02/04/23 blood sugar diagnostic (True Metrix Glucose Test Strip) #100 ea 02/08/23 cyclobenzaprine 10 mg tablet 10 mg PO TID PRN muscle spasm #30 tabs 02/24/23 benzonatate 200 mg capsule 200 mg PO BID PRN cough #30 caps 03/10/23 trazodone 50 mg tablet 50 mg PO QHS sleep 03/18/23 insulin lispro 200 unit/mL (3 mL) subcutaneous pen (Humalog KwikPen U-200 Insulin) 160 unit (0.8 mL) subcut DAILY diabetes #72 mL 04/21/23 pantoprazole 40 mg tablet,delayed release (Protonix) 40 mg PO BID GERD #60 tabs 04/29/23 albuterol sulfate 90 mcg/actuation aerosol inhaler 2 puff inhalation BID PRN SOB 05/01/23 duloxetine 60 mg capsule,delayed release 60 mg PO BID depression 05/01/23 lamotrigine 200 mg tablet 200 mg PO DAILY mood 02/24/24 dicyclomine 10 mg capsule 10 mg PO BID 30 days #60 caps 05/03/23 blood-glucose sensor (Dexcom G6 Sensor device) #9 ea 06/10/23 valacyclovir 500 mg tablet 500 mg PO DAILY #7 tabs 06/16/23 diphenoxylate-atropine 2.5 mg-0.025 mg tablet (Lomotil) 1 tab PO TID PRN diarrhea 06/21/23 blood-glucose transmitter (Dexcom G6 Transmitter device) #1 ea 07/09/23 insulin pump cart,automated,BT (Omnipod 5 G6 Pods (Gen 5) subcutaneous cartridge) #45 ea 07/14/23 atorvastatin 80 mg tablet 80 mg PO QHS CHOLESTEROL LOWERING #90 tabs 07/22/23 buprenorphine HCl 150 mcg buccal film 150 mcg buccal Q12H 08/04/23 cholecalciferol (vitamin D3) 50 mcg (2,000 unit) capsule 100 mcg (2 x 50 mcg (2,000 unit)) PO DAILY #60 caps 08/12/23 aspirin 81 mg tablet,delayed release 81 mg PO DAILY heart health 08/16/23 cholecalciferol (vitamin D3) 1,250 mcg (50,000 unit) capsule 1,250 mcg PO QWEEK #4 caps 08/18/23 donepezil 10 mg tablet 10 mg PO QHS memory #30 tabs 08/18/23 donepezil 5 mg tablet 5 mg PO QHS #30 tabs 08/18/23 pregabalin 75 mg capsule 75 mg PO BID #56 caps 09/15/23 metoprolol tartrate 25 mg tablet 25 mg PO BID bp 09/18/23 metoprolol tartrate 50 mg tablet 50 mg PO BID blood pressure 09/18/23 tramadol 50 mg tablet 100 mg PO BID PRN PRN pain 09/19/23 acetaminophen 325 mg tablet 1,000 mg (3.0769 x 325 mg) PO Q8 PRN Pain 1-10 Or Fever>100.7 #0 tabs 09/20/23 prednisone 20 mg tablet 40 mg (2 x 20 mg) PO BREAKFAST #6 tabs 09/20/23 sumatriptan succinate 25 mg tablet (Imitrex) See Rx Instructions PO .COMPLEX #10 tabs 09/20/23 Hospital Course Operations None Procedures None Summary of Care Provided Minutes Spent on Discharge: 32 Weight / BMI Weight Weight: 96.785 kg Body Mass Index (BMI) 33.4 ABG / Lab / Microbiology Data 09/19/23 06:00 09/19/23 06:00 Laboratory: Laboratory Results - last 24 hr 09/19/23 12:17: POC Glucose 255 H 09/19/23 16:04: POC Glucose 229 H 09/19/23 20:50: POC Glucose 342 H 09/19/23 23:13: POC Glucose 400 H 09/20/23 01:43: POC Glucose 333 H 09/20/23 06:26: POC Glucose 243 H Microbiology: Microbiology 09/18/23 17:16 Mucosa - Nose Respiratory Panel (PCR) - Final 09/18/23 14:25 Mucosa - Nasopharyngeal SARS-CoV-2, Influenza & RSV (PCR) - Final D/C Instructions Discharge Diet: 2000 Calorie Control Diet Meaningful Use Info Meaningful Use Meaningful Use Diagnoses (Choose all that apply): None applicable Ischemic Stroke Statin Dosing Therapy Reference: STATIN DOSE THERAPY REFERENCE: * Patients > 75 years receive moderate or high dose statin therapy. * Patients 75 years or YOUNGER should receive HIGH intensity statin dose unless contraindicated. You will be required to document reason for non-treatment if statin daily dose does not meet guidelines. HIGH DOSE STATIN THERAPY DAILY Atorvastatin > than or = to 40 mg Rosuvastatin > than or = to 20 mg Amlodipine + Atorvastatin > than or = to 2.5/40 mg Ezetimibe + Simvastatin 10/80 mg Simvastatin 80mg Discharge Plan Admission Admit Date/Time: 09/18/23 16:42 Primary Reason for Your Visit: migraine. Attending Provider: Shiva Chandler Primary Care Provider: Mala Mcgrath Consulting Providers: Michael Etienne Instructions Additional Instructions / Restrictions: Patient presents to the hospital with reported confusion. Patient by time she arrived appear to be appropriate. Patient had a couple been complaining of a headache that been going on for period of time as well as pain in her left buttocks going down her leg. Patient did receive dose of Imitrex which helped her migraine as well as some started on prednisone to help her sciatica which she reports improving. Patient has had numerous falls at home. Therapy services were offered to her but she declined saying that she has too many other appointments to attend to. Patient strongly advised to continue doing therapy and she said that she is not going to be actively involved in initiating chair yoga at her apartment complex. Discharge Orders/Prescriptions Prescriptions: New acetaminophen 325 mg Tablet 1,000 mg PO Q8 PRN (Reason: Pain 1-10 Or Fever>100.7) Qty: 0 0RF prednisone 20 mg Tablet 40 mg PO BREAKFAST Qty: 6 0RF sumatriptan succinate [Imitrex] 25 mg tablet See Rx Instructions .ROUTE .COMPLEX Qty: 10 0RF Rx Instructions: take 1 tab at onset of headache; if no relief may repeat 1 tab after at least 2 hrs; max = 4 tabs/24 hr Continued duloxetine 30 mg capsule,delayed release(DR/EC) 90 mg PO DAILY Patient Comments: per pt changed to 60 mg BID nitroglycerin 0.4 mg tablet, sublingual 0.4 mg sublingual Q5-15M PRN (Reason: chest pain) Qty: 25 6RF Rx Instructions: do not exceed 3 doses per episode (DME) Handicap Placard See Rx Instructions .ROUTE .MEDSUPPLY Qty: 1 0RF Rx Instructions: As directed, length of time 3 years (DME) True Metrix Glucose Test Strip Strip See Rx Instructions .Route Qty: 100 5RF Rx Instructions: TID donepezil 5 mg tablet 5 mg PO QHS Qty: 30 0RF donepezil 10 mg tablet 10 mg PO QHS Qty: 30 5RF Rx Instructions: Begin after completing one month of treatment of donepezil 5mg nightly cholecalciferol (vitamin D3) 1,250 mcg (50,000 unit) capsule 1,250 mcg PO QWEEK Qty: 4 4RF cyclobenzaprine 10 mg tablet 10 mg PO TID PRN (Reason: muscle spasm) Qty: 30 0RF benzonatate 200 mg capsule 200 mg PO BID PRN (Reason: cough) Qty: 30 0RF valacyclovir 500 mg tablet 500 mg PO DAILY Qty: 7 0RF cholecalciferol (vitamin D3) 50 mcg (2,000 unit) capsule 100 mcg PO DAILY Qty: 60 5RF aspirin 81 mg tablet,delayed release (DR/EC) 81 mg PO DAILY (DME) True Metrix Glucose Test Strip Strip See Rx Instructions .Route Rx Instructions: 3 times per day No longer (DME) Dexcom G6 Geology Professor [facility] See Rx Instructions .ROUTE .MEDSUPPLY Rx Instructions: As directed (DME) pen needle, diabetic [BD Ultra-Fine Key Pen Needle] 32 gauge x 5/32 needle See Rx Instructions .ROUTE .MEDSUPPLY Rx Instructions: takes 5 injection/day (DME) Wheel Chair See Rx Instructions Rx Instructions: As directed trazodone 50 mg tablet 50 mg PO QHS diphenoxylate-atropine [Lomotil] 2.5-0.025 mg tablet 1 tab PO TID PRN (Reason: diarrhea) buprenorphine HCl 150 mcg film 150 mcg buccal Q12H metoprolol tartrate 50 mg tablet 50 mg PO BID Rx Instructions: 50 mg orally twice a day with a 25 mg tablet twice a day to = 75 mg twice a day; metoprolol tartrate 25 mg tablet 25 mg PO BID Rx Instructions: 25 mg orally take with a 50 mg tablet twice a day to = 75 mg twice a day; tramadol 50 mg tablet 100 mg PO BID PRN PRN (Reason: pain) duloxetine 60 mg capsule,delayed release(DR/EC) 60 mg PO BID Patient Comments: per pt takes 60 mg BID lamotrigine 200 mg tablet 200 mg PO DAILY albuterol sulfate 90 mcg/actuation HFA aerosol inhaler 2 puff INHALATION BID PRN (Reason: SOB) dicyclomine 10 mg Capsule 10 mg PO BID 30 Days Qty: 60 0RF (DME) ostomy supplies See Rx Instructions .Route .MEDSUPPLY Qty: 1 0RF Rx Instructions: Pouches Barrier rings Adhesive remover Skin Prep Barrier powder isosorbide dinitrate 30 mg tablet 30 mg PO BID Qty: 60 11RF (DME) Juanita Cohesive Seal 2 diameter See Rx Instructions .Route .MEDSUPPLY Qty: 15 7RF Rx Instructions: As directed (DME) Esenta Sting Free Adhesive Remover Wipe - See Rx Instructions .Route .MEDSUPPLY Qty: 15 7RF Rx Instructions: As directed ([facility] [place]) Esenta Sting Free Skin Barrier [place], 50 mL - See Rx Instructions .Route .MEDSUPPLY Qty: 15 7RF Rx Instructions: As directed ([facility] [place]) Esteem + Convex One-Piece Drainable Pre-Cut Pouch w/visiClose, Durahesive, 12 panel [place], 1 03/15 See Rx Instructions .Route .MEDSUPPLY Qty: 15 7RF Rx Instructions: As directed clopidogrel 75 mg tablet 75 mg PO DAILY Qty: 90 3RF Rx Instructions: TAKE 1 TABLET BY MOUTH EVERY DAY Humalog KwikPen Insulin 200 unit/mL (3 mL) insulin pen 160 unit subcut DAILY Qty: 72 3RF Patient Comments: per pt pump broke 3 days ago Rx Instructions: 2.05 units/hr from 12 AM to 6:30 AM 2.15 units/hr from 6:30 AM to 12 AM pantoprazole [Protonix] 40 mg tablet,delayed release (DR/EC) 40 mg PO BID Qty: 60 11RF (DME) Dexcom G6 Sensor Device See Rx Instructions .ROUTE .MEDSUPPLY Qty: 9 1RF Rx Instructions: 1 sensor every 10 days (DME) Dexcom G6 Transmitter Device See Rx Instructions .ROUTE .MEDSUPPLY Qty: 1 3RF Rx Instructions: 1 transmitter every 90 days (DME) Omnipod 5 G6 Pods (Gen 5) Cartridge See Rx Instructions .Route Qty: 45 1RF Rx Instructions: 1 pod q 48 hours atorvastatin 80 mg tablet 80 mg PO QHS Qty: 90 3RF Patient Comments: cholesterol pregabalin 75 mg capsule 75 mg PO BID Qty: 56 0RF Referrals / Follow Up: [facility] [Provider Group] - 10/05/23 9:00 am Mala Mcgrath MD [Primary Care Provider] - Within 2 Weeks Disposition Disposition (needs filled in before D/C Order can be placed): Home, Self Care Charges/Coding Visit Charges Inpatient E&M: 52050 Disch Hosp >30min
[2023-09-20 11:38] LABS: Bedside Glucose 360 mg/dL (74-106)
--- NOTE | 2023-09-20 12:11 | PHA.DC_ITS ---
Pharmacy [facility] has performed discharge medication reconciliation and counseling for this patient. 1. PREDNISONE 40MG PO BREAKFAST X 3 DAYS 2. SUMATRIPTAN 25MG PO AT HEADACHE ONSET, IF NO RELIEF MAY REPEAT X1 AFTER 2 HOURS The patient's discharge medication list was reviewed for discrepancies and discrepancies were resolved. The patient was counseled on the following discharge medications and changes in medications for homegoing were reviewed. The Reason for Use, instructions for use, and potential side effects were revie wed for all new medications. The patient's questions regarding all of their medications were answered. The patient was able to verbally demonstrate an understanding of their discharge medications. Patient counseled by pharmacy delivery driver, Emre. Medications at Discharge Home Medications duloxetine 30 mg capsule,delayed release 90 mg PO DAILY depression 10/06/21 Wheel Chair 11/15/21 blood sugar diagnostic (True Metrix Glucose Test Strip) 11/15/21 blood-glucose meter,continuous (Dexcom G6 Historic [employer]ume Maker) 11/15/21 pen needle, diabetic 32 gauge x 5/32 (BD Ultra-Fine Key Pen Needle) 11/15/21 nitroglycerin 0.4 mg sublingual tablet 0.4 mg sublingual Q5-15M PRN chest pain #25 tabs 11/20/21 ostomy supplies #1 ea 02/13/22 Handicap Placard #1 ea 09/16/22 isosorbide dinitrate 30 mg tablet 30 mg PO BID heart #60 tabs 12/11/22 Juanita Cohesive Seal 2 diameter #15 ea 01/18/23 Esenta Sting Free Adhesive Remover Wipe - #15 ea 01/18/23 Esenta Sting Free Skin Barrier [place], 50 mL - #15 ea 01/18/23 Esteem + Convex One-Piece Drainable Pre-Cut Pouch w/visiClose, Durahesive, 12 panel [place], 1 03/15 #15 ea 01/18/23 clopidogrel 75 mg tablet 75 mg PO DAILY heart health #90 tabs 02/04/23 blood sugar diagnostic (True Metrix Glucose Test Strip) #100 ea 02/08/23 cyclobenzaprine 10 mg tablet 10 mg PO TID PRN muscle spasm #30 tabs 02/24/23 benzonatate 200 mg capsule 200 mg PO BID PRN cough #30 caps 03/10/23 trazodone 50 mg tablet 50 mg PO QHS sleep 03/18/23 insulin lispro 200 unit/mL (3 mL) subcutaneous pen (Humalog KwikPen U-200 Insulin) 160 unit (0.8 mL) subcut DAILY diabetes #72 mL 04/21/23 pantoprazole 40 mg tablet,delayed release (Protonix) 40 mg PO BID GERD #60 tabs 04/29/23 albuterol sulfate 90 mcg/actuation aerosol inhaler 2 puff inhalation BID PRN SOB 05/01/23 duloxetine 60 mg capsule,delayed release 60 mg PO BID depression 05/01/23 lamotrigine 200 mg tablet 200 mg PO DAILY mood 05/01/23 dicyclomine 10 mg capsule 10 mg PO BID stomach 30 days #60 caps 05/03/23 blood-glucose sensor (Dexcom G6 Sensor device) #9 ea 06/10/23 valacyclovir 500 mg tablet 500 mg PO DAILY HSV #7 tabs 06/16/23 diphenoxylate-atropine 2.5 mg-0.025 mg tablet (Lomotil) 1 tab PO TID PRN diarrhea 06/21/23 blood-glucose transmitter (Dexcom G6 Transmitter device) #1 ea 07/09/23 insulin pump cart,automated,BT (Omnipod 5 G6 Pods (Gen 5) subcutaneous cartridge) #45 ea 07/14/23 atorvastatin 80 mg tablet 80 mg PO QHS CHOLESTEROL LOWERING #90 tabs 07/22/23 buprenorphine HCl 150 mcg buccal film 150 mcg buccal Q12H pain 08/04/23 cholecalciferol (vitamin D3) 50 mcg (2,000 unit) capsule 100 mcg (2 x 50 mcg (2,000 unit)) PO DAILY #60 caps 08/12/23 aspirin 81 mg tablet,delayed release 81 mg PO DAILY heart health 08/16/23 cholecalciferol (vitamin D3) 1,250 mcg (50,000 unit) capsule 1,250 mcg PO QWEEK supplement #4 caps 08/18/23 donepezil 10 mg tablet 10 mg PO QHS memory #30 tabs 08/18/23 donepezil 5 mg tablet 5 mg PO QHS #30 tabs 08/18/23 pregabalin 75 mg capsule 75 mg PO BID pain #56 caps 09/15/23 metoprolol tartrate 25 mg tablet 25 mg PO BID bp 09/18/23 metoprolol tartrate 50 mg tablet 50 mg PO BID blood pressure 09/18/23 tramadol 50 mg tablet 100 mg PO BID PRN PRN pain 09/19/23 acetaminophen 325 mg tablet 1,000 mg (3.0769 x 325 mg) PO Q8 PRN Pain 1-10 Or Fever>100.7 #0 tabs 09/20/23 prednisone 20 mg tablet 40 mg (2 x 20 mg) PO BREAKFAST #6 tabs 09/20/23 sumatriptan succinate 25 mg tablet (Imitrex) See Rx Instructions PO .COMPLEX #10 tabs 09/20/23
--- NOTE | 2023-09-20 12:39 | CASEMGMT ---
SVETLANA RAINEY Assessment Face to Face with patient for initial transition planning/care coordination assessment. SVETLANA RAINEY introduced self and role at [facility], pt voices understanding. Pt is A&Ox4 and is resting comfortably in the chair and is calm. Care providers, pharmacy, and demographics verified. Admitting dx: Acute Metabolic Encephalopathy PCP: Alcides Specialists: RNENY, Argelia Pulbrian, Friend (GI), (Endo), Jenn (Onc), Kendrick (Neuro), Jacky (Nephro) Preferred Pharmacy: [facility] Insurance: [employer], [place]/[employer] Prescription Benefit: Yes LNOK: Azucena Borrero (Friend/ SO) Living Arrangements: Pt lives alone in a ground level apartment with one step to enter ADLs/IADLs: Mainly independent . Pt states that her friend/ SO helps with cleaning around her home Transportation: Self, SO DME: Pt has a GBGM and an insulin pump. Rollator, cane, FWW, toilet side rails, shower chair, grab bars, w/c. HHC/SNF: Hx at [facility]. HHC Hx x 1-2 years ago but cannot recall the name of the agency Pt?s goal: Home Plan: Home today with the support of her SO. Pt has had recent falls at home. This SVETLANA RAINEY reviewed how the pt did with therapy and the pt is adamant about returning home with no additional needs. Pt denies the need for SNF, HHC, or OP Tx. PT 6-Click is 20. Pt states that she feels safe discharging home today with the help of her SO. Pt denies further questions or concerns and is ready for DC today. Parminder Cr RN, CM
[2023-09-20 15:40] LABS: Bedside Glucose 366 mg/dL (74-106)
[2023-09-20 18:33] LABS: Hemoglobin A1c 7.3 % (3.8-5.6)
== END 2023-09-20 16:08 | disposition home or self-care (01) | DRG 641 ==
LOC: ED 16:56 → PCU 17:02
PROVIDERS: Nurse Practitioner; Admitting Provider Internal Medicine; Emergency Provider Emergency Medicine; PCP Internal Medicine
DX: E86.0 Dehydration (principal); J96.12 Chronic respiratory failure with hypercapnia; K91.2 Postsurgical malabsorption, not elsewhere classified; I13.0 Hypertensive heart and chronic kidney disease with heart failure and stage 1 through stage 4 chronic kidney disease, or unspecified chronic kidney disease; J96.11 Chronic respiratory failure with hypoxia; I50.32 Chronic diastolic (congestive) heart failure; T85.694A Other mechanical complication of insulin pump, initial encounter; E87.20 Acidosis, unspecified; D47.2 Monoclonal gammopathy; I27.21 Secondary pulmonary arterial hypertension; E11.22 Type 2 diabetes mellitus with diabetic chronic kidney disease; N18.30 Chronic kidney disease, stage 3 unspecified; J44.9 Chronic obstructive pulmonary disease, unspecified; E11.42 Type 2 diabetes mellitus with diabetic polyneuropathy; E11.65 Type 2 diabetes mellitus with hyperglycemia; Z79.4 Long term (current) use of insulin; F32.A Depression, unspecified; K21.9 Gastro-esophageal reflux disease without esophagitis; G43.909 Migraine, unspecified, not intractable, without status migrainosus; L40.9 Psoriasis, unspecified; G47.33 Obstructive sleep apnea (adult) (pediatric); M54.30 Sciatica, unspecified side; E78.00 Pure hypercholesterolemia, unspecified; I25.10 Atherosclerotic heart disease of native coronary artery without angina pectoris; E78.49 Other hyperlipidemia; F41.9 Anxiety disorder, unspecified; E66.9 Obesity, unspecified; Y82.8 Other medical devices associated with adverse incidents; G89.4 Chronic pain syndrome; Z91.199 Patient's noncompliance with other medical treatment and regimen due to unspecified reason; Z79.82 Long term (current) use of aspirin; Z79.85 Long-term (current) use of injectable non-insulin antidiabetic drugs; Z79.02 Long term (current) use of antithrombotics/antiplatelets; Z99.81 Dependence on supplemental oxygen; Z79.899 Other long term (current) drug therapy; Z87.891 Personal history of nicotine dependence; Z95.1 Presence of aortocoronary bypass graft; Z95.5 Presence of coronary angioplasty implant and graft; T38.3X6A Underdosing of insulin and oral hypoglycemic [antidiabetic] drugs, initial encounter
CPT/HCPCS: 36415; 71046; 80048; 80053; 81001; 82009; 82803; 82962; 83036; 83605; 83735; 84100; 84484; 85025; 87631; 87633; 93005; 94002; 94003; 94640; 94668; 95886; 95911; 97162; 97165; 97530; 97802; 99283; J7030; J7120; A4216; J2405; J3030

== ENCOUNTER 2023-09-21 11:19 | Outpatient (CLI) | payer MEDICARE, MEDICAID, SELFPAY ==
[2023-02-18 12:34] VITALS: BMI 30.9
[2023-09-21] MEDS: Lactated Ringers 1,000 ML 999 ML IV ×2 (11:29→12:37)
[2023-09-21 11:32] VITALS: BP 175/77; PULSE 68; RESP 16; TEMP 35.9; O2SAT 97; BMI 32.7
[2023-09-21] MEDS: 0.9% NaCl Peripheral Flush Adult/Peds IV (13:52)
[2023-09-21 13:54] VITALS: BP 177/74; PULSE 77
== END 2023-09-21 23:59 | disposition home or self-care (01) ==
LOC: MEDOUTP 11:20
PROVIDERS: PCP Internal Medicine; Referring Provider Internal Medicine Gastroenterology; Visit Provider Internal Medicine Gastroenterology
DX: E86.0 Dehydration (principal); R19.8 Other specified symptoms and signs involving the digestive system and abdomen
CPT/HCPCS: 96360; 96361; J7120; A4216

== ENCOUNTER 2023-09-22 16:31 | Inpatient (IN) | payer MEDICARE, MEDICAID, SELFPAY ==
[2023-02-18 12:34] VITALS: BMI 30.9
[2023-09-22] VITALS (7 sets, daily range): BP systolic 158–184; BP diastolic 76–100; PULSE 66–74; RESP 15–18; TEMP 35.8–36.8; O2SAT 97–99; BMI 32.0; BMI 32.2
--- NOTE | 2023-09-22 17:11 | EDS_ITS ---
HPI History of Present Illness Chief Complaint: General Illness [facility] Medical History Obstructive sleep apnea Falls Hypoxic respiratory failure Hypercapnic respiratory failure Fatigue Low back pain Abnormality of gait and mobility Polyneuropathy Insulin pump titration Presence of insulin pump Essential tremor Dementia Encounter for insertion of venous access port Chronic kidney disease (CKD) stage G4/A2, severely decreased glomerular filtration rate (GFR) between 15-29 mL/min/1.73 square meter and albuminuria creatinine ratio between 30-299 mg/g Chronic kidney disease (CKD) stage G4/A1, severely decreased glomerular filtration rate (GFR) between 15-29 mL/min/1.73 square meter and albuminuria creatinine ratio less than 30 mg/g Ingrown toenail Neuropathy Hyperglycemia due to diabetes mellitus Frequent falls Lumbar spondylosis Greater trochanteric bursitis CKD (chronic kidney disease) stage 3, GFR 30-59 ml/min Memory loss Degenerative disc disease at L5-S1 level Gastroparesis Health care maintenance History of stress test Fungal dermatitis Herpes genitalia Post-menopausal Rash Back pain Arthritis Ambulates with cane History of renal disease High cholesterol Dietary restriction History of pain when walking History of echocardiogram Tremor Depression Chronic pain Rheumatoid arthritis Sleep apnea Congestive heart failure (CHF) Malaise and fatigue Vitamin B12 deficiency History of CAD (coronary artery disease) Anxiety and depression CAD (coronary artery disease) Cellulitis, abdominal wall Left shoulder pain Vitamin D deficiency Acute kidney injury CKD (chronic kidney disease), stage IV High output ileostomy MGUS (monoclonal gammopathy of unknown significance) Elevated anti-tissue transglutaminase (tTG) IgA level Ileostomy present Short bowel syndrome Loss of hearing Wears glasses History of COVID-19 Anxiety Insulin dependent diabetes mellitus Walker as ambulation aid Fatty liver Migraine headache Hx of diabetic gastroparesis Gastric reflux Former smoker BiPAP (biphasic positive airway pressure) dependence Hypertension Cardiology follow-up encounter Myoclonic jerking Chronic narcotic use Avascular necrosis of bone of left hip Chronic back pain Non-alcoholic fatty liver disease Liver mass Ulcerative colitis Nonalcoholic steatohepatitis Chronic respiratory failure Smoking greater than 20 pack years Obesity Chronic respiratory failure with hypoxia, on home O2 therapy Diabetic gastroparesis Secondary pulmonary arterial hypertension Chronic diastolic (congestive) heart failure Type 2 diabetes mellitus with diabetic polyneuropathy BMI 31.0-31.9,adult Depression with anxiety Arthritis Menieres disease Hyperlipidemia Psoriasis COPD (chronic obstructive pulmonary disease) FCHL (familial combined hyperlipidemia) DM2 (diabetes mellitus, type 2) Home Medications ?Medication ?Instructions ?Recorded ?Last Taken ?Type duloxetine 30 mg capsule,delayed 90 mg PO BID depression 10/06/21 09/18/23 History release Wheel Chair 11/15/21 Unknown History blood sugar diagnostic (True 11/15/21 Unknown History Metrix Glucose Test Strip) blood-glucose meter,continuous 11/15/21 Unknown History (Dexcom G6 Manager Office) pen needle, diabetic 32 gauge x 11/15/21 Unknown History (BD Ultra-Fine Key Pen Needle) nitroglycerin 0.4 mg sublingual 0.4 mg sublingual Q5-15M PRN chest 11/20/21 Unknown Rx tablet pain #25 tabs ostomy supplies #1 ea 02/13/22 Unknown Rx Handicap Placard #1 ea 09/16/22 Unknown Rx isosorbide dinitrate 30 mg tablet 30 mg PO BID heart #60 tabs 12/11/22 09/18/23 Rx Juanita Cohesive Seal 2 diameter #15 ea 01/18/23 Unknown Rx Esenta Sting Free Adhesive Remover #15 ea 01/18/23 Unknown Rx Wipe - Esenta Sting Free Skin Barrier #15 ea 01/18/23 Unknown Rx Iliamna, 50 mL - Esteem + Convex One-Piece #15 ea 01/18/23 Unknown Rx Drainable Pre-Cut Pouch w/visiClose, Durahesive, 12 panel [place]pa[place], 1 03/15 clopidogrel 75 mg tablet 75 mg PO DAILY heart health #90 02/04/23 09/18/23 Rx tabs blood sugar diagnostic (True #100 ea 02/08/23 Unknown Rx Metrix Glucose Test Strip) cyclobenzaprine 10 mg tablet 10 mg PO TID PRN muscle spasm #30 02/24/23 04/30/23 Rx tabs trazodone 50 mg tablet 50 mg PO QHS sleep 03/18/23 09/17/23 History insulin lispro 200 unit/mL (3 mL) 160 unit (0.8 mL) subcut DAILY 04/21/23 05/30/23 Rx subcutaneous pen (Humalog KwikPen diabetes #72 mL U-200 Insulin) pantoprazole 40 mg tablet,delayed 40 mg PO BID GERD #60 tabs 04/29/23 09/18/23 Rx release (Protonix) albuterol sulfate 90 mcg/actuation 2 puff inhalation BID PRN SOB 05/01/23 08/07/23 History aerosol inhaler lamotrigine 200 mg tablet 100 mg PO DAILY mood 05/01/23 05/30/23 History dicyclomine 10 mg capsule 10 mg PO BID stomach 30 days #60 05/03/23 09/18/23 Rx caps blood-glucose sensor (Dexcom G6 #9 ea 06/10/23 Unknown Rx Sensor device) diphenoxylate-atropine 2.5 1 tab PO TID PRN diarrhea 06/21/23 09/04/23 History mg-0.025 mg tablet (Lomotil) blood-glucose transmitter (Dexcom #1 ea 07/09/23 Unknown Rx G6 Transmitter device) insulin pump cart,automated,BT #45 ea 07/14/23 Unknown Rx (Omnipod 5 G6 Pods (Gen 5) subcutaneous cartridge) atorvastatin 80 mg tablet 80 mg PO QHS CHOLESTEROL LOWERING 07/22/23 09/17/23 Rx #90 tabs buprenorphine HCl 150 mcg buccal 150 mcg buccal Q12H pain 08/04/23 09/18/23 History film cholecalciferol (vitamin D3) 50 100 mcg (2 x 50 mcg (2,000 unit)) 08/12/23 Unknown Rx mcg (2,000 unit) capsule PO DAILY #60 caps aspirin 81 mg tablet,delayed 81 mg PO DAILY heart health 08/16/23 09/18/23 History release cholecalciferol (vitamin D3) 1,250 1,250 mcg PO QWEEK supplement #4 08/18/23 09/11/23 Rx mcg (50,000 unit) capsule caps donepezil 10 mg tablet 10 mg PO QHS memory #30 tabs 08/18/23 09/17/23 Rx donepezil 5 mg tablet 5 mg PO QHS #30 tabs 08/18/23 Unknown Rx pregabalin 75 mg capsule 75 mg PO BID pain #56 caps 09/15/23 09/18/23 Rx metoprolol tartrate 25 mg tablet 75 mg PO BID bp 09/18/23 09/18/23 History acetaminophen 325 mg tablet 1,000 mg (3.0769 x 325 mg) PO Q8 09/20/23 Unknown Rx PRN Pain 1-10 Or Fever>100.7 #0 tabs sumatriptan succinate 25 mg tablet See Rx Instructions PO .COMPLEX 09/20/23 Unknown Rx (Imitrex) #10 tabs Bipap Mask and Tubing #1 ea 09/22/23 Unknown Rx benzonatate 200 mg capsule PO 09/22/23 Unknown History cholestyramine (with sugar) 4 gram 1 ea PO BID 09/22/23 Unknown History powder for susp in a packet dapagliflozin propanediol 10 mg 10 mg PO DAILY 09/22/23 Unknown History tablet (Farxiga) fluticasone propionate 50 2 spray intranasal DAILY #16 grams 09/22/23 Unknown Rx mcg/actuation nasal spray,suspension (Flonase Allergy Relief) melatonin 5 mg capsule mg PO QHS 09/22/23 Unknown History prednisone 20 mg tablet 40 mg PO BREAKFAST 09/22/23 Unknown History valacyclovir 500 mg tablet 500 mg PO DAILY PRN HSV 09/22/23 Unknown History Allergy/AdvReac Type Severity Reaction Status Date / Time cinnamon (Cinnamon) Allergy Severe Anaphylaxis Verified 09/22/23 16:39 Influenza Virus Vaccines Allergy Severe Shortness Verified 09/22/23 16:39 of breath liraglutide (From Victoza) Allergy Severe Anaphylaxis Verified 09/22/23 16:39 ciprofloxacin Allergy Intermediate Swelling Verified 09/22/23 16:39 metformin (From Glucophage) Allergy Mild Nausea Verified 09/22/23 16:39 metronidazole (From Flagyl) Allergy Hives Verified 09/22/23 16:39 Metronidazole HCl (From Allergy Hives Verified 09/22/23 16:39 Flagyl) Penicillins Allergy Hives Verified 09/22/23 16:39 Sulfa (Sulfonamide Allergy Hives Verified 09/22/23 16:39 Antibiotics) aripiprazole (From Abilify) AdvReac hallucinati Verified 09/22/23 16:39 ons metformin HCl (From AdvReac Nausea Verified 09/22/23 16:39 Glucophage) ranolazine AdvReac Nausea/Vom/ Verified 09/22/23 16:39 Diarrhea Lyltdwm-IVB-PwP Reductase AdvReac Nausea/joints Verified 09/22/23 16:39 Inhibitor (Qgjwpvf-Swm-Eeg ache Reductase Inhibitor) Family History Mother CVA (cerebral vascular accident) Diabetes Brother Heart disease of CAD at 65 Myocardial infarction Pancreatitis Father Cancer lymphomia Lymphoma Grandmother Myocardial infarction of NC in her 70s Sister COPD (chronic obstructive pulmonary disease) Surgical History H/O total hip arthroplasty History of colonoscopy History of esophagogastroduodenoscopy (EGD) History of appendectomy History of coronary artery stent placement Status post total hip replacement, left History of cardiac catheterization History of History of cholecystectomy H/O coronary artery bypass surgery (05/18/12) History of coronary artery stent placement (01/12/18) H/O sinus surgery history closed fissure Ileostomy status H/O colectomy left thumb surgery H/O total hysterectomy ileostomy Social History household members: none Smoking Status: Former smoker quit date: 03/08/12 how long ago did patient quit smoking: quit in 2012; 0.5-1ppd x 30yrs alcohol intake: never substance use type: does not use diet: diabetic caffeine: No eating out: 1-3 times/week what type of physical activity do you participate in: none seatbelt use: always do you feel safe at home: Yes EXAM Physical Exam Const Vital Signs: 09/22/23 16:39 09/22/23 17:32 09/22/23 18:32 Temperature 96.5 F L Temperature Source Temporal Pulse Rate 68 69 Respiratory Rate 18 16 Respiratory Effort Short of Breath Blood Pressure 158/76 H 180/80 H Blood Pressure Mean 103 113 Pulse Ox 97 98 Oxygen Delivery Method Nasal Cannula Oxygen Flow Rate (L/min) 2 09/22/23 20:00 09/22/23 21:01 Temperature 98.2 F Temperature Source Pulse Rate 68 66 Respiratory Rate 15 17 Respiratory Effort Blood Pressure 184/76 H 181/79 H Blood Pressure Mean 112 113 Pulse Ox 98 98 Oxygen Delivery Method Room Air Oxygen Flow Rate (L/min) MDM MDM MDM Narrative Medical decision making narrative: HISTORY OF PRESENT ILLNESS: 63-year-old female presents with multiple concerns. Notes she was just in the hospital for issues with her CO2 levels, breathing issues and change in mental status. She notes she continues to be confused continues to fall. Denies any falls after discharge. Denies any head trauma. States that her blood sugars and underlying blood pressures. Notes some diffuse weakness nausea as well. Denies chest pain. Nausea and fatigue. REVIEW OF SYSTEMS: Pertinent positives: Nausea, fatigue, diffuse weakness Pertinent negatives: Focal weakness, chest pain, shortness of breath PHYSICAL EXAM: Nursing triage notes reviewed, Vital signs reviewed Constitutional: please see mdm HENT: MMM Eyes: Pupils equal round and reactive to light, Extraocular muscles intact Neck: No stridor, no JVD, full neck ROM Lungs: Clear to auscultation, No wheezing or rales. No increased work of breathing, no conversational dyspnea, no accessory muscle use, no nasal flaring. No respiratory distress noted Heart: Regular rate and rhythm, No murmurs, No rubs and No gallops, 2+ distal pulses (radial, femoral, posterior tibial) in all extremities Abdomen: Soft, there is no tenderness, rigidity, rebound or guarding, no obvious peritoneal signs, no palpable pulsatile abdominal masses, no auscultated abdominal bruit : No CVAT Extremities: No edema Neuro: No focal neurological deficits, cranial nerves II through XII intact, 5/5 strength in all extremities. Intact sensation to light touch in all extremities, 2+ reflexes bilateral patella tendons. Normal gait. No ataxia. Skin: No rash or lesions noted MEDICAL DECISION MAKING: Chief Complaint: Multiple complaints as per HPI External records reviewed: Reviewed records from recent hospitalization: She was admitted for acute metabolic encephalopathy, hypercapnia Factors affecting care: hypoxic respiratory failure, ANKITA Social determinants of health: none History obtained from others: The patient's family Consults: Internal medicine [facility] Narrative: Patient was initially hemodynamically stable, afebrile and nontoxic-appearing. Exam without focal cardiopulmonary abnormalities. Noted decreased ostomy output however the patient's abdomen is not distended or peritonitic. There is no significant tenderness. I considered the following differential diagnosis: Arrhythmia, anemia, ACS, bowel obstruction, intracranial injury, CO2 retention, CHF, pneumonia, electrolyte disturbance I obtained a broad lab and imaging workup to further elucidate the etiology patient complaint. I gave the patient IV Zofran for nausea control. ALL IMAGES (IF OBTAINED) HAVE BEEN PERSONALLY REVIEWED AND INTERPRETED BY MYSELF. EKG with normal sinus rhythm, left axis deviation, T wave inversion noted laterally, no STEMI, when compared to prior EKG from 09/18/2023 looks very similar. Initial troponin elevated consistent myocardial ischemia, repeat is downtrending however still elevated CBC without leukocytosis, no anemia or thrombocytopenia VBG without significant CO2 retention BMP with hyponatremia, noted CKD at baseline, no signs of metabolic acidosis or endorgan hypoperfusion LFTs show no evidence of hepatobiliary pathology. Lipase is wnl indicating no pancreatic inflammation. The synthesis of the patients history and physical exam suggest Fatigue possible caused by elevated troponin. Otherwise no clear life-limiting etiologies could be ascertained. Given the patient recent hospitalization and difficulty thriving at home, poorly controlled chronic medical conditions she will be admitted for serial cardiac biomarkers, possible cardiology consultation and possible placement. The patient and/or family, caregivers express understanding. The patient and/or family, caregivers agrees with the plan. Shared decision making: I will have a discussion with the patient and or visitors regarding risk/benefits of further testing or admission. They will be made aware of of the risk/benefits inherent in this decision they will be given the opportunity to voice understanding. Total critical care time today provided was at least 0 minutes. This excludes separately billable procedures. Critical care time (if documented) is secondary to the patient having high probability of clinically significant/life threatening deterioration in the patient's condition which required my urgent intervention. Impression: 1. Poorly controlled hypertension 2. Poorly controlled type 2 diabetes 3. Fatigue 4. Elevated troponin Dispo: admit to PCU obs This note was generated with Karaz dictation software. It may contain incorrect words, spelling, and punctuation that were not noted in review of the chart prior to signing. Lab Data Labs: Laboratory Results - last 24 hr 09/22/23 09/22/23 17:28 19:30 WBC 9.1 RBC 4.67 Hgb 12.6 Hct 39.9 MCV 85.4 MCH 27.0 MCHC 31.6 L RDW Std Deviation 50.4 H RDW Coeff of Jan 17.1 H Plt Count 187 MPV 12.0 Immature Gran % (Auto) 2.500 H Neut % (Auto) 79.0 H Lymph % (Auto) 15.2 L [place] % (Auto) 2.4 Eos % (Auto) 0.1 Baso % (Auto) 0.8 Absolute Neuts (auto) 7.2 Absolute Lymphs (auto) 1.38 Nucleated RBC % 0 Sodium 135 L Potassium 4.6 Chloride 101 Carbon Dioxide 27.0 Anion Gap 7 BUN 30 H Creatinine 1.79 H Estim Creat Clear Calc 36.64 Est GFR (MDRD) Af Amer 37 L Est GFR (MDRD) Non-Af 30 L BUN/Creatinine Ratio 16.8 Glucose 304 H Calcium 9.6 Total Bilirubin 0.60 AST 34 ALT 29 Alkaline Phosphatase 127 H Troponin I High Sens 128 H* 53 B-Natriuretic Peptide 187.0 H Total Protein 7.3 Albumin 3.1 L Globulin 4.2 Albumin/Globulin Ratio 0.7 L Lipase 28 ABG Data ABG results: ABG 09/22/23 17:57 Specimen Type PAMELA Sample Site Not entered VBG pH 7.30 L VBG pO2 47 H VBG HCO3 29 H VBG Total CO2 31 VBG O2 Sat (Calc) 77 H VBG Base Excess 2 POC Mix VBG pCO2 Pt Tmp 58.6 H O2 Delivery Device Not entered Radiography Diagnostic Testing: Clinical Impression(s) from Imaging Studies Brain CT 09/22/23 17:48 IMPRESSION: No acute findings in the head/brain. There has been no significant change from the reference exam. Electronically Signed: Rip Buchanan MD at 19:09 EDT , Abdomen/Pelvis CT 09/22/23 17:49 IMPRESSION: 1. Status post colectomy with left lower quadrant ileostomy. There are no acute abnormalities in the abdomen or pelvis. 2. Venous catheter with the distal tip in the coronary sinus. Electronically Signed: Rip Buchanan MD at 19:07 EDT , ADDENDUM: 09/22/23 192 IMPRESSION: 1. Status post colectomy with left lower quadrant ileostomy. There are no acute abnormalities in the abdomen or pelvis. 2. Venous catheter with the distal tip in the coronary sinus. N.B. : The above Results were Read Back by Rip Buchanan MD to Taran Leahy DO, and understanding confirmed on 09/22/2023 19:17:48 (ET). Electronically Signed: Rip Buchanan MD at 19:07 EDT , Chest X-Ray 09/22/23 18:15 IMPRESSION: No acute findings in the chest. Electronically Signed: Rip Buchanan MD at 19:10 EDT , Discharge Plan Disposition Disposition: Acute Care Hospital [facility] Discharge Date/Time: 09/22/23 21:59
--- NOTE | 2023-09-22 17:48 | CT_ITS ---
EXAM: CT HEAD WITHOUT INTRAVENOUS CONTRAST CLINICAL INDICATION: confusion TECHNIQUE: Multiple axial images were obtained of the head without intravenous contrast. This CT exam was performed using one or more of the following dose reduction techniques: automated exposure control, adjustment of the mA and/or kV according to patient size, and/or use of iterative reconstruction technique. COMPARISON: 08/30/2023 FINDINGS: BRAIN AND EXTRA-AXIAL SPACES: Unremarkable. No intra- or extra-axial hemorrhage. No evidence of acute infarct. No intracranial mass or mass effect. There is preservation of the posey/white matter interface. Posterior fossa structures are unremarkable. Ventricles are appropriate for age. No hydrocephalus. Basal cisterns are patent. BONES/JOINTS: Unremarkable. No discrete lytic or blastic abnormalities. SINUSES: Unremarkable as visualized. Clear. MASTOID AIR CELLS: There are postsurgical changes in the right mastoid air cells. ORBITS: Visualized globes, extraocular muscles, optic nerves and retrobulbar fat appear unremarkable. CT/Brain/Head without Contrast IMPRESSION: No acute findings in the head/brain. There has been no significant change from the reference exam. Electronically Signed: Rip Buchanan MD at 19:09 EDT ,
--- NOTE | 2023-09-22 17:48 | EKG12_ITS ---
Test Reason : SOB Blood Pressure : / mmHG Vent. Rate : 062 BPM Atrial Rate : 062 BPM P-R Int : 172 ms QRS Dur : 096 ms QT Int : 438 ms P-R-T Axes : 029 -25 132 degrees QTc Int : 444 ms Normal sinus rhythm Left ventricular hypertrophy with repolarization abnormality ( R in aVL , Parminder product ) Abnormal ECG Confirmed by CHLOÉ DOMINGUEZ, AL ([id number]), editor sound DEREK CAVAZOS ([id number]) on 09/23/2023 1:02:22 PM Referred By: Confirmed By:AL LUEVANO MD
--- NOTE | 2023-09-22 17:49 | CT_ITS ---
We are attempting to reach an attending provider to discuss findings. An addendum with communication details will be sent when the communication is complete. EXAM: CT ABDOMEN AND PELVIS WITHOUT INTRAVENOUS CONTRAST CLINICAL INDICATION: decreased ostomy output TECHNIQUE: Helically acquired images were obtained of the abdomen and pelvis without intravenous contrast. This CT exam was performed using one or more of the following dose reduction techniques: automated exposure control, adjustment of the mA and/or kV according to patient size, and/or use of iterative reconstruction technique. COMPARISON: No relevant prior studies available. FINDINGS: LOWER THORAX: Unremarkable. Lung bases are clear. No cardiomegaly. No significant pericardial effusion. ABDOMEN: LIVER: Unremarkable. Homogeneous. GALLBLADDER AND BILE DUCTS: Unremarkable. No calcified gallstones. No gallbladder distention or wall edema. No intra- or extrahepatic biliary ductal dilation. PANCREAS: Unremarkable. No focal cystic mass. SPLEEN: Unremarkable. Normal size without focal cystic or solid mass. ADRENALS: Unremarkable. No nodules. KIDNEYS AND URETERS: Unremarkable. Normal renal size and position. No hydronephrosis. STOMACH AND BOWEL: Patient has had a total colectomy. PELVIS: APPENDIX: See above. BLADDER: Unremarkable. REPRODUCTIVE: Unremarkable as visualized. No mass. ABDOMEN and PELVIS: INTRAPERITONEAL SPACE: Unremarkable. No ascites or other fluid collection. No free air. BONES/JOINTS: There is beam hardening artifact from a left hip prosthesis.. No suspicious lytic or blastic abnormality. SOFT TISSUES: Unremarkable. No discrete abdominal or pelvic wall hernia. VASCULATURE: Unremarkable. Abdominal aorta is non-dilated. LYMPH NODES: Unremarkable. No enlarged lymph nodes. TUBES, LINES AND DEVICES: There is a catheter extending from the right atrium with the distal tip in the coronary sinus. There is a left lower quadrant ileostomy. CT/Abdomen/Pelvis without Cont IMPRESSION: 1. Status post colectomy with left lower quadrant ileostomy. There are no acute abnormalities in the abdomen or pelvis. 2. Venous catheter with the distal tip in the coronary sinus. Electronically Signed: Rip Buchanan MD at 19:07 EDT ,
[2023-09-22] MEDS: Ondansetron 4 MG/2 ML Vial IV (17:54)
[2023-09-22 18:00] LABS: Absolute Lymphocyte Count 1.38 X10^3/uL (0.83-4.51); Absolute Neutrophil Count 7.2 X10^3/uL (2.0-7.7); Basophil# 0.07 X10^3/uL; Basophil% 0.8 % (0-1); Eosinophil# 0.01 X10^3/uL; Eosinophils% 0.1 % (0-5); Hematocrit 39.9 % (37-47); Hemoglobin 12.6 g/dL (12.0-15.0); Lymphocyte # 1.38 X10^3/ul (0.83-4.51); Lymphocyte % 15.2 % (19-41); Mean Corp Hgb Conc 31.6 g/dL (32-36); Mean Corpuscular Volume 85.4 fL (81-99); Monocyte# 0.22 X10^3/uL; Monocyte% 2.4 % (0-10); NRBC Flagged by Analyzer 0 % (0-5); Neutrophil # 7.15 X10^3/uL (2.7-7.7); Platelet Count 187 K/mm3 (150-450); RBC Distribution Width CV 17.1 % (11.6-14.6); RBC Distribution Width SD 50.4 fl (35.1-43.9); Red Blood Count 4.67 M/mm3 (4.2-5.4); White Blood Count 9.1 K/mm3 (4.4-11.0)
[2023-09-22 18:00] LABS: Blood Gas Specimen Type VEN; O2 Delivery Device Not entered; SITE Not entered; VBG BASE EXCESS 2 mmol/L (-1.0-3.5); VBG Bicarbonate 29 mmol/L (22-26); VBG PO2 47 mmHg (25-40); VBG SO2 77 % (50-70); VBG TCO2 31 mmol/L (23-33); VBG pCO2 58.6 mmHg (41-51)
--- NOTE | 2023-09-22 18:15 | RAD_ITS ---
EXAM: XR CHEST, 1 VIEW CLINICAL INDICATION: SOB TECHNIQUE: Frontal view of the chest. COMPARISON: 09/18/2023 FINDINGS: LUNGS AND PLEURAL SPACES: Unremarkable. No consolidation or edema. No pneumothorax. No effusion. HEART: Unremarkable. Cardiac silhouette not enlarged. MEDIASTINUM: Central airways and mediastinal contour are unremarkable. BONES/JOINTS: Unremarkable. No acute fracture. SOFT TISSUES: Unremarkable. TUBES, LINES AND DEVICES: Right-sided Port-A-Cath unchanged in position. RAD/Chest 1 View (Portable) IMPRESSION: No acute findings in the chest. Electronically Signed: Rip Buchanan MD at 19:10 EDT ,
[2023-09-22 18:24] LABS: ALB/GLOB Ratio 0.7 RATIO (0.9-2.4); AST(SGOT) 34 U/L (15-37); Alanine Aminotransfer ALT/SGPT 29 U/L (13-56); Albumin, Serum 3.1 g/dL (3.2-5.0); Alkaline Phosphatase 127 U/L (45-117); Anion Gap 7 (5-15); BUN 30 mg/dL (7-18); BUN/Creat Ratio 16.8 RATIO (10-20); Calcium,Total 9.6 mg/dL (8.5-10.1); Chloride 101 mmol/L (98-107); Creatinine, Serum 1.79 mg/dL (0.55-1.02); EST Glomerular Filtration Rate 30 mL/min (>60); Est Glom Filt Rate - Afr Amer 37 mL/min (>60); Estimated Creatinine Clearance 36.64 ml/min; Globulin 4.2 g/dL (2.2-4.2); Glucose 304 mg/dL (74-106); Lipase 28 U/L (13-75); Potassium 4.6 mmol/L (3.5-5.1); Protein, Total 7.3 g/dL (6.4-8.2); Sodium Level 135 mmol/L (136-145); Troponin-I HS 128 pg/mL (3.0-54.0)
[2023-09-22] MEDS: Aspirin 81 MG TAB.CHEW PO (19:23)
[2023-09-22 20:03] LABS: Troponin-I HS 53 pg/mL (3.0-54.0)
--- NOTE | 2023-09-22 20:46 | PCM.HP.STD ---
[facility] - General General Date of Admission: 09/22/23 Date of Service: 09/22/23 Chief Complaint: Nausea, Fatigue and Generalized Weakness. HPI Narrative ASHLEY ARTIS, is a 63 F with a past medical history of essential hypertension, hyperlipidemia, history of tobacco abuse ~1 ppd x ~30 years (quit 2012); with subsequent COPD, obesity; with BMI of 32 this admission, ANKITA; non-compliant with BiPAP, NAFLD, DM-2; of unknown control s/p insulin pump, diabetic neuropathy; on Lyrica, history of diabetic gastroparesis, essential tremor, CAD; s/p CABG x 4 (2012) and multiple coronary artery stents (2017) on chronic BASA and Plavix, MGUS; followed by oncology, CKD; stage III-IV, history of ulcerative colitis; with short-gut syndrome s/p proctocolectomy with J-pouch and proximal diversion with loop ileostomy x 2 with ~270 cm of small bowel remaining causing high-output on prn Lomotil, RA, Psoriasis, history of genital HSV; on daily prn Valacyclovir, history of Meniere's disease, migraine headaches; on prn Imitrex, GERD; on Protonix BID, depression with anxiety, early dementia; on Donepezil, history of cholecystectomy, history of hysterectomy, history of AVN of the Left hip; s/p Left THR, OA; with DDD, Sciatica, Lumbar Spondylosis and Chronic Pain Syndrome on Prednisone taper + prn buccal Buprenorphine BID and recent admission here from September 18, 2023 to September 20, 2023 for treatment of confusion and weakness attributed to a combination dehydration and polypharmacy that caused acute hypercapnic respiratory failure after an apparent insulin pump malfunction that preceded admission by ~3 days who re-presents to [facility] ER complaining of nausea, fatigue and generalized weakness. Ms. Artis reported to multiple concerns to the ER physician stating she was just admitted for elevated CO2 levels and altered mental status primarily due to ANKITA in the setting of polypharmacy with patient stating she continues to be confused and she is still falling. She went on state she has diffuse generalized weakness and nausea with persistent fatigue culminating her stating she thinks she should have been discharged to an ECF. She also admits to fluctuating blood pressure and blood sugars but she denies related fever, chills, vomiting, chest pain, palpitations or diaphoresis. In the ER she was noted to have mildly elevated BNP of 187 pg/mL present on admission consistent with suspected mild AE CHF complicated by a mildly elevated initial troponin of 128 pg/mL present on admission that dropped to 53 pg/mL on second check attributed to suspected acute cardiac strain compounded by poorly-controlled hypertension, DM-2; uncontrolled with hyperglycemia and persistent fatigue with patient apparently unable to be cared for at home due to increasing fatigue with falls and with patient now having strong desire for ECF placement and she was then admitted to the PCU for ongoing care for a stay that is expected to extend beyond 2 midnights. [facility] [place] Medical History Obstructive sleep apnea Falls Hypoxic respiratory failure Hypercapnic respiratory failure Fatigue Low back pain Abnormality of gait and mobility Polyneuropathy Insulin pump titration Presence of insulin pump Essential tremor Dementia Encounter for insertion of venous access port Chronic kidney disease (CKD) stage G4/A2, severely decreased glomerular filtration rate (GFR) between 15-29 mL/min/1.73 square meter and albuminuria creatinine ratio between 30-299 mg/g Chronic kidney disease (CKD) stage G4/A1, severely decreased glomerular filtration rate (GFR) between 15-29 mL/min/1.73 square meter and albuminuria creatinine ratio less than 30 mg/g Ingrown toenail Neuropathy Hyperglycemia due to diabetes mellitus Frequent falls Lumbar spondylosis Greater trochanteric bursitis CKD (chronic kidney disease) stage 3, GFR 30-59 ml/min Memory loss Degenerative disc disease at L5-S1 level Gastroparesis Health care maintenance History of stress test Fungal dermatitis Herpes genitalia Post-menopausal Rash Back pain Arthritis Ambulates with cane History of renal disease High cholesterol Dietary restriction History of pain when walking History of echocardiogram Tremor Depression Chronic pain Rheumatoid arthritis Sleep apnea Congestive heart failure (CHF) Malaise and fatigue Vitamin B12 deficiency History of CAD (coronary artery disease) Anxiety and depression CAD (coronary artery disease) Cellulitis, abdominal wall Left shoulder pain Vitamin D deficiency Acute kidney injury CKD (chronic kidney disease), stage IV High output ileostomy MGUS (monoclonal gammopathy of unknown significance) Elevated anti-tissue transglutaminase (tTG) IgA level Ileostomy present Short bowel syndrome Loss of hearing Wears glasses History of COVID-19 Anxiety Insulin dependent diabetes mellitus Walker as ambulation aid Fatty liver Migraine headache Hx of diabetic gastroparesis Gastric reflux Former smoker BiPAP (biphasic positive airway pressure) dependence Hypertension Cardiology follow-up encounter Myoclonic jerking Chronic narcotic use Avascular necrosis of bone of left hip Chronic back pain Non-alcoholic fatty liver disease Liver mass Ulcerative colitis Nonalcoholic steatohepatitis Chronic respiratory failure Smoking greater than 20 pack years Obesity Chronic respiratory failure with hypoxia, on home O2 therapy Diabetic gastroparesis Secondary pulmonary arterial hypertension Chronic diastolic (congestive) heart failure Type 2 diabetes mellitus with diabetic polyneuropathy BMI 31.0-31.9,adult Depression with anxiety Arthritis Menieres disease Hyperlipidemia Psoriasis COPD (chronic obstructive pulmonary disease) FCHL (familial combined hyperlipidemia) DM2 (diabetes mellitus, type 2) Home Medications ?Medication ?Instructions ?Recorded ?Last Taken ?Type duloxetine 30 mg capsule,delayed 90 mg PO BID depression 10/06/21 09/18/23 History release Wheel Chair 11/15/21 Unknown History blood sugar diagnostic (True 11/15/21 Unknown History Metrix Glucose Test Strip) blood-glucose meter,continuous 11/15/21 Unknown History (Dexcom G6 Tunnel Man) pen needle, diabetic 32 gauge x 11/15/21 Unknown History (BD Ultra-Fine Key Pen Needle) nitroglycerin 0.4 mg sublingual 0.4 mg sublingual Q5-15M PRN chest 11/20/21 Unknown Rx tablet pain #25 tabs ostomy supplies #1 ea 02/13/22 Unknown Rx Handicap Placard #1 ea 09/16/22 Unknown Rx isosorbide dinitrate 30 mg tablet 30 mg PO BID heart #60 tabs 12/11/22 09/18/23 Rx Juanita Cohesive Seal 2 diameter #15 ea 01/18/23 Unknown Rx Esenta Sting Free Adhesive Remover #15 ea 01/18/23 Unknown Rx Wipe - Esenta Sting Free Skin Barrier #15 ea 01/18/23 Unknown Rx [place], 50 mL - Esteem + Convex One-Piece #15 ea 01/18/23 Unknown Rx Drainable Pre-Cut Pouch w/visiClose, Durahesive, 12 panel [place], 1 03/15 clopidogrel 75 mg tablet 75 mg PO DAILY heart health #90 02/04/23 09/18/23 Rx tabs blood sugar diagnostic (True #100 ea 02/08/23 Unknown Rx Metrix Glucose Test Strip) cyclobenzaprine 10 mg tablet 10 mg PO TID PRN muscle spasm #30 02/24/23 04/30/23 Rx tabs trazodone 50 mg tablet 50 mg PO QHS sleep 03/18/23 09/17/23 History insulin lispro 200 unit/mL (3 mL) 160 unit (0.8 mL) subcut DAILY 04/21/23 05/30/23 Rx subcutaneous pen (Humalog KwikPen diabetes #72 mL U-200 Insulin) pantoprazole 40 mg tablet,delayed 40 mg PO BID GERD #60 tabs 04/29/23 09/18/23 Rx release (Protonix) albuterol sulfate 90 mcg/actuation 2 puff inhalation BID PRN SOB 05/01/23 08/07/23 History aerosol inhaler lamotrigine 200 mg tablet 100 mg PO DAILY mood 05/01/23 05/30/23 History dicyclomine 10 mg capsule 10 mg PO BID stomach 30 days #60 05/03/23 09/18/23 Rx caps blood-glucose sensor (Dexcom G6 #9 ea 06/10/23 Unknown Rx Sensor device) diphenoxylate-atropine 2.5 1 tab PO TID PRN diarrhea 06/21/23 09/04/23 History mg-0.025 mg tablet (Lomotil) blood-glucose transmitter (Dexcom #1 ea 07/09/23 Unknown Rx G6 Transmitter device) insulin pump cart,automated,BT #45 ea 07/14/23 Unknown Rx (Omnipod 5 G6 Pods (Gen 5) subcutaneous cartridge) atorvastatin 80 mg tablet 80 mg PO QHS CHOLESTEROL LOWERING 07/22/23 09/17/23 Rx #90 tabs buprenorphine HCl 150 mcg buccal 150 mcg buccal Q12H pain 08/04/23 09/18/23 History film cholecalciferol (vitamin D3) 50 100 mcg (2 x 50 mcg (2,000 unit)) 08/12/23 Unknown Rx mcg (2,000 unit) capsule PO DAILY #60 caps aspirin 81 mg tablet,delayed 81 mg PO DAILY heart health 08/16/23 09/18/23 History release cholecalciferol (vitamin D3) 1,250 1,250 mcg PO QWEEK supplement #4 08/18/23 09/11/23 Rx mcg (50,000 unit) capsule caps donepezil 10 mg tablet 10 mg PO QHS memory #30 tabs 08/18/23 09/17/23 Rx donepezil 5 mg tablet 5 mg PO QHS #30 tabs 08/18/23 Unknown Rx pregabalin 75 mg capsule 75 mg PO BID pain #56 caps 09/15/23 09/18/23 Rx metoprolol tartrate 25 mg tablet 75 mg PO BID bp 09/18/23 09/18/23 History acetaminophen 325 mg tablet 1,000 mg (3.0769 x 325 mg) PO Q8 09/20/23 Unknown Rx PRN Pain 1-10 Or Fever>100.7 #0 tabs sumatriptan succinate 25 mg tablet See Rx Instructions PO .COMPLEX 09/20/23 Unknown Rx (Imitrex) #10 tabs Bipap Mask and Tubing #1 ea 09/22/23 Unknown Rx benzonatate 200 mg capsule PO 09/22/23 Unknown History cholestyramine (with sugar) 4 gram 1 ea PO BID 09/22/23 Unknown History powder for susp in a packet dapagliflozin propanediol 10 mg 10 mg PO DAILY 09/22/23 Unknown History tablet (Farxiga) fluticasone propionate 50 2 spray intranasal DAILY #16 grams 09/22/23 Unknown Rx mcg/actuation nasal spray,suspension (Flonase Allergy Relief) melatonin 5 mg capsule mg PO QHS 09/22/23 Unknown History prednisone 20 mg tablet 40 mg PO BREAKFAST 09/22/23 Unknown History valacyclovir 500 mg tablet 500 mg PO DAILY PRN HSV 09/22/23 Unknown History Allergy/AdvReac Type Severity Reaction Status Date / Time cinnamon (Cinnamon) Allergy Severe Anaphylaxis Verified 09/22/23 16:39 Influenza Virus Vaccines Allergy Severe Shortness Verified 09/22/23 16:39 of breath liraglutide (From Victoza) Allergy Severe Anaphylaxis Verified 09/22/23 16:39 ciprofloxacin Allergy Intermediate Swelling Verified 09/22/23 16:39 metformin (From Glucophage) Allergy Mild Nausea Verified 09/22/23 16:39 metronidazole (From Flagyl) Allergy Hives Verified 09/22/23 16:39 Metronidazole HCl (From Allergy Hives Verified 09/22/23 16:39 Flagyl) Penicillins Allergy Hives Verified 09/22/23 16:39 Sulfa (Sulfonamide Allergy Hives Verified 09/22/23 16:39 Antibiotics) aripiprazole (From Abilify) AdvReac hallucinati Verified 09/22/23 16:39 ons metformin HCl (From AdvReac Nausea Verified 09/22/23 16:39 Glucophage) ranolazine AdvReac Nausea/Vom/ Verified 09/22/23 16:39 Diarrhea [id number] Reductase AdvReac Nausea/joints Verified 09/22/23 16:39 Inhibitor (Mokxyrf-Mmb-Elc ache Reductase Inhibitor) Family History Mother CVA (cerebral vascular accident) Diabetes Brother Heart disease of CAD at 65 Myocardial infarction Pancreatitis Father Cancer lymphomia Lymphoma Grandmother Myocardial infarction of MA in her 70s Sister COPD (chronic obstructive pulmonary disease) Surgical History H/O total hip arthroplasty History of colonoscopy History of esophagogastroduodenoscopy (EGD) History of appendectomy History of coronary artery stent placement Status post total hip replacement, left History of cardiac catheterization History of History of cholecystectomy H/O coronary artery bypass surgery (05/18/12) History of coronary artery stent placement (01/12/18) H/O sinus surgery history closed fissure Ileostomy status H/O colectomy left thumb surgery H/O total hysterectomy ileostomy Social History household members: none Smoking Status: Former smoker quit date: 03/08/12 how long ago did patient quit smoking: quit in 2012; 0.5-1ppd x 30yrs alcohol intake: never substance use type: does not use diet: diabetic caffeine: No eating out: 1-3 times/week what type of physical activity do you participate in: none seatbelt use: always do you feel safe at home: Yes ROS ROS Narrative Review of systems: Constitutional: Patient admits to fatigue and generalized weakness but she denies fever or sweats. Eyes: Patient denies changes in vision or discharge from eyes. ENT: Patient denies runny nose, sore throat or ear pain. CV: Patient admits to undulating blood pressures but she denies chest pain, heart racing or palpitations. Resp: Patient admits to EDGAR but she denies cough or wheezing. GI: Patient admits to nausea but she denies vomiting. : Patient denies dysuria or hematuria. MSK: Patient admits to fatigue and frequent falls but denies arthralgias or myalgias. Skin: Patient denies abscess, rash or jaundice. Allergy: Patient denies lip swelling, tongue swelling or urticaria. Psychiatry: Patient denies symptoms related to uncontrolled depression or anxiety. Endocrinology: Patient admits to undulating blood glucoses but she denies polyuria, polydipsia or polyphagia. 14 point ROS otherwise negative except for positives noted above in HPI. Vital Signs Vital Signs Vital Signs: 09/22/23 16:39 09/22/23 17:32 09/22/23 18:32 Temperature 96.5 F L Temperature Source Temporal Pulse Rate 68 69 Respiratory Rate 18 16 Respiratory Effort Short of Breath Blood Pressure 158/76 H 180/80 H Blood Pressure Mean 103 113 Pulse Ox 97 98 Oxygen Delivery Method Nasal Cannula Oxygen Flow Rate (L/min) 2 Weight Weight: 204 lb 9.6 oz Body Mass Index (BMI) 32.0 Physical Exam Const alert, oriented x3 and no apparent distress Constitutional Narrative: Patient is obese on BiPAP and appears chronically ill. General Appearance: cooperative HEENT normocephalic, head/scalp atraumatic, hearing grossly normal bilaterally and moist oral mucous membranes Eyes PERRL and EOMs intact bilaterally Neck no lymphadenopathy and supple Resp Resp Narrative: Diminished breath sounds throughout. Cardio regular rate and regular rhythm GI normal to inspection, nondistended, normoactive bowel sounds, soft to palpation, non-tender and non-distended GI Narrative: Obese. Extremity normal to inspection and full ROM Skin Skin Narrative: Patient has no evidence of jaundice, rash or abscess. Neuro oriented x3, CN's II-XII intact bilaterally, moves all extremities and no focal motor deficits Sensorium / Orientation: awake, alert, oriented to person, oriented to place and oriented to time Speech: speech normal Psych affect normal Results Medical Records Data Attestation: I reviewed the patient's medical records Lab / Micro Data Attestation: I reviewed the patient's lab results. 09/23/23 05:23 09/23/23 05:23 Labs: Laboratory Results - last 24 hr 09/22/23 17:28: WBC 9.1, RBC 4.67, Hgb 12.6, Hct 39.9, MCV 85.4, MCH 27.0, MCHC 31.6 L, RDW Std Deviation 50.4 H, RDW Coeff of Jan 17.1 H, Plt Count 187, MPV 12.0, Immature Gran % (Auto) 2.500 H, Neut % (Auto) 79.0 H, Lymph % (Auto) 15.2 L, [place] % (Auto) 2.4, Eos % (Auto) 0.1, Baso % (Auto) 0.8, Absolute Neuts (auto) 7.2, Absolute Lymphs (auto) 1.38, Nucleated RBC % 0, Sodium 135 L, Potassium 4.6, Chloride 101, Carbon Dioxide 27.0, Anion Gap 7, BUN 30 H, Creatinine 1.79 H, Estim Creat Clear Calc 36.64, Est GFR (MDRD) Af Amer 37 L, Est GFR (MDRD) Non-Af 30 L, BUN/Creatinine Ratio 16.8, Glucose 304 H, Calcium 9.6, Total Bilirubin 0.60, AST 34, ALT 29, Alkaline Phosphatase 127 H, Troponin I High Sens 128 H*, B-Natriuretic Peptide 187.0 H, Total Protein 7.3, Albumin 3.1 L, Globulin 4.2, Albumin/Globulin Ratio 0.7 L, Lipase 28 09/22/23 19:30: Troponin I High Sens 53 ABG Data ABG results: ABG 09/22/23 17:57 Specimen Type PAMELA Sample Site Not entered VBG pH 7.30 L VBG pO2 47 H VBG HCO3 29 H VBG Total CO2 31 VBG O2 Sat (Calc) 77 H VBG Base Excess 2 POC Mix VBG pCO2 Pt Tmp 58.6 H O2 Delivery Device Not entered Imaging Radiology Impression Brain CT 09/22/23 17:48 IMPRESSION: No acute findings in the head/brain. There has been no significant change from the reference exam. Electronically Signed: Rip Buchanan MD at 19:09 EDT , Abdomen/Pelvis CT 09/22/23 17:49 IMPRESSION: 1. Status post colectomy with left lower quadrant ileostomy. There are no acute abnormalities in the abdomen or pelvis. 2. Venous catheter with the distal tip in the coronary sinus. Electronically Signed: Rip Buchanan MD at 19:07 EDT , ADDENDUM: 09/22/23 1924 IMPRESSION: 1. Status post colectomy with left lower quadrant ileostomy. There are no acute abnormalities in the abdomen or pelvis. 2. Venous catheter with the distal tip in the coronary sinus. N.B. : The above Results were Read Back by Rip Buchanan MD to Taran Leahy DO, and understanding confirmed on 09/22/2023 19:17:48 (ET). Electronically Signed: Rip Buchanan MD at 19:07 EDT , Chest X-Ray 09/22/23 18:15 IMPRESSION: No acute findings in the chest. Electronically Signed: Rip Buchanan MD at 19:10 EDT , Assessment & Plan Assessment/Plan (1) Acute diastolic CHF (congestive heart failure): (2) Elevated troponin: (3) Uncontrolled hypertension: (4) Uncontrolled type 2 diabetes mellitus with hyperglycemia: (5) Obesity (BMI 30.0-34.9): (6) Obstructive sleep apnea: (7) Generalized weakness: (8) Fatigue: QUALIFIERS: Fatigue type: unspecified Qualified Code(s): R53.83 - Other fatigue (9) Ambulatory dysfunction: (10) Falls: PLAN: Plan 1. Mildly elevated BNP of 187 pg/mL present on admission consistent with suspected mild AE chronic diastolic CHF; with preserved LVEF - Admit to PCU. Give IV Lasix 40 mg IV plus supplemental KCl and magnesium. Check echocardiogram to evaluate LVEF with last echocardiogram done in 12/2022 revealing normal LVEF ~65%. 2. Mildly elevated initial troponin of 128 pg/mL present on admission that dropped to 53 pg/mL on second check attributed to suspected acute cardiac strain complicating #1 in the setting of known CAD; s/p CABG x 4 (2013) and multiple coronary artery stents (2018) on chronic BASA and Plavix - Serialize troponin. Continue BASA and Plavix as previous. Doubt ACS. 3. Uncontrolled Hypertension with blood pressure of 184/76 mmHg present on admission compounding #1 & #2 - Continue home regimen plus give prn IV Hydralazine for systolic blood pressure > 160 mmHg. 4. Hypomagnesemia of 1.3 mg/dL present on admission adding to the complexity of #1 - #3 - Give supplemental magnesium sulfate 2g IV once and then recheck level to ensure improvement. 5. DM-2; uncontrolled with hyperglycemia in spite of insulin pump along with diabetic neuropathy plus diabetic gastroparesis adding to the pathologic impact of #1 - #4 - ADA diet. FSBS q. AC/HS plus SSI. Continue Lyrica as previous. Check HgbA1c to objectively assess quality of diabetic control. 6. Obesity; with BMI of 32 this admission plus ANKITA; non-compliant with BiPAP further amplifying the negative consequences in #1 - #4 - Weight loss will be recommended and BiPAP use will be encouraged. This adds to the complexity of her case and may hamper her recovery. 7. Recent admission here from September 18, 2023 to September 20, 2023 for treatment of confusion and weakness attributed to a combination dehydration and polypharmacy that caused acute hypercapnic respiratory failure after an apparent insulin pump malfunction that preceded admission by ~3 days followed persistent fatigue and falls with patient apparently unable to be cared for at home due to the constellation of acute and chronic issues outlined in #1 - #5 - PT/OT and Case Management to consult and treat on-rounds in the AM for further recommendations regarding ECF placement with help appreciated in advance. 8. History of ulcerative colitis; with short-gut syndrome s/p proctocolectomy with J-pouch and proximal diversion with loop ileostomy x 2 with ~270 cm of small bowel remaining causing high-output on prn Lomotil - Stable. 9. OA; with DDD, Sciatica, Lumbar Spondylosis and Chronic Pain Syndrome on Prednisone taper + prn buccal Buprenorphine BID - Stable. Continue home regimen as previous. 10. History of tobacco abuse ~1 ppd x ~30 years (quit 2012); with subsequent COPD - Stable with no evidence of acute flare at this time. Continue nebulizers as previous. 11. Essential hypertension - Resume home regimen plus give prn IV Hydralazine for systolic blood pressure > 160 mmHg. 12. Hyperlipidemia - Continue statin. 13. NAFLD - Stable. 14. Essential tremor - Stable. 15. MGUS; followed by oncology - Noted. 16. CKD; stage III-IV - Stable. Check daily labs to ensure continued stability. 17. RA - Stable with no evidence of acute flare. 18. Psoriasis - Noted. 19. History of genital HSV; on daily prn Valacyclovir - Continue Valacyclovir as previous. 20. History of Meniere's disease - Stable with no complaints of vertigo or auditory disturbances at this time. 21. Migraine headaches; on prn Imitrex - Resume Imitrex prn. 23. GERD; on Protonix BID - Current regimen to be maintained. 24. Depression with anxiety - Stable on current treatment. 25. Early dementia; on Donepezil - Resume Donepezil. 26. History of cholecystectomy - Noted. 26. History of hysterectomy - Noted. 27. History of AVN of the Left hip; s/p Left THR - Noted. 28. DVT prophylaxis - Lovenox 40 mg sq daily. Total time: Approximately 75 minutes. Charges/Coding Visit Charges Inpatient E&M: 77762 Init Hosp L3
[2023-09-22] MEDS: Furosemide 40 MG/4 ML Vial IV (22:28)
[2023-09-23] VITALS (12 sets, daily range): BP systolic 118–167; BP diastolic 66–102; PULSE 58–85; RESP 14–20; TEMP 36.1–36.9; O2SAT 91–99; BMI 31.9
[2023-09-23] MEDS: Magnesium Chloride 64 MG Delay Rel.Tablet 128 MG PO ×3 (00:11→22:04)
[2023-09-23] MEDS: Metoprolol Tartrate 25 MG Tablet 75 MG PO ×2 (00:11→11:05)
[2023-09-23] MEDS: Isosorbide DN 30 MG Tablet PO ×3 (00:16→22:03)
[2023-09-23] MEDS: traZODone 50 MG Tablet PO ×2 (00:17→22:04)
[2023-09-23] MEDS: Dicyclomine 10 MG Capsule PO ×3 (00:17→22:03)
[2023-09-23] MEDS: Pantoprazole Sodium 40 MG Tablet PO ×3 (00:18→22:06)
[2023-09-23] MEDS: MELATONIN 10 MG TABLET 5 MG PO ×2 (00:18→22:03)
[2023-09-23] MEDS: Donepezil HCl 10 MG Tablet PO (00:19)
[2023-09-23] MEDS: Atorvastatin Calcium 80 MG Tablet PO ×2 (00:19→22:03)
[2023-09-23] MEDS: Cholestyramine/Sucrose 4 GM/PACKET PO (00:20)
[2023-09-23] MEDS: Enoxaparin 40 MG/0.4 ML Syringe SC (00:20)
[2023-09-23] MEDS: DULoxetine Hcl 60 MG Capsule PO ×3 (00:20→22:05)
[2023-09-23] MEDS: Pregabalin 75 MG Capsule PO ×3 (00:22→21:59)
[2023-09-23] MEDS: Morphine 2 MG/ML Syringe IV ×2 (00:31→08:10)
[2023-09-23] MEDS: Insulin Lispro 100 UNIT/ML INSULN.PEN SC (00:32)
[2023-09-23 01:12] LABS: Bedside Glucose 280 mg/dL (74-106)
--- NOTE | 2023-09-23 03:13 | ECHOD_ITS ---
Reason For Study: CHF Procedure This was a 2D Doppler, Color Flow transthoracic echocardiogram. Exam performed in department. Left Ventricle Normal LV size. Mild concentric left ventricular hypertrophy. Left ventricular systolic function is normal. The left ventricular ejection fraction is 55 %. No regional wall motion abnormalities noted. Right Ventricle Normal RV size. Normal systolic function. Atria Normal left atrium. Normal right atrium. Mitral Valve Bileaflet diffuse mitral valve thickening. Moderate (2+) eccentric mitral valve insufficiency. Tricuspid Valve Normal tricuspid valve. Aortic Valve Trisinus/trileaflet aortic valve. Mild focal aortic valve calcification. Pulmonic Valve Normal pulmonic valve. Great Vessels Normal aortic root. The pulmonary artery is normal size. Normal inferior vena cava. Pericardium/Pleural No pericardial effusion. MMode/2D Measurements & Calculations LVIDd: 4.8 cm IVSd: 1.4 cm Ao root diam: 3.2 cm LVIDs: 3.1 cm LVPWd: 1.3 cm LA dimension: 4.3 cm RVDd: 3.3 cm FS: 34.8 % LAV(MOD-bp): 42.2 ml LVAd ap4: 26.0 cm2 SV(MOD-sp4): 37.5 ml LAV(MOD-bp) Indexed: 20.6 ml/m2 LVLd ap4: 7.5 cm LAV(MOD-sp2): 56.3 ml EDV(MOD-sp4): 74.6 ml LAV(MOD-sp4): 31.1 ml EDV(sp4-el): 76.6 ml LVAs ap4: 16.2 cm2 LVLs ap4: 6.2 cm ESV(MOD-sp4): 37.1 ml ESV(sp4-el): 36.1 ml EF(MOD-sp4): 50.3 % EF(sp4-el): 52.9 % SV(sp4-el): 40.6 ml LA A4 area: 14.1 cm2 RA A4 area: 11.5 cm2 TAPSE: 1.7 cm Time Measurements MV dec time: 0.18 sec Doppler Measurements & Calculations MV E max los: 98.5 cm/sec Lat Peak E' Los: 7.4 cm/sec Med Peak E' Los: 6.3 cm/sec MV A max los: 94.6 cm/sec E/E' lat: 13.3 E/E' med: 15.7 MV E/A: 1.0 MV V2 max: 114.3 cm/sec MV P1/2t max los: 114.8 cm/sec Ao V2 max: 135.4 cm/sec MV max P.2 mmHg MV P1/2t: 65.3 msec Ao max P.3 mmHg MV V2 mean: 55.7 cm/sec MV dec slope: 514.5 cm/sec2 Ao V2 mean: 94.4 cm/sec MV mean P.5 mmHg Ao mean P.1 mmHg MV V2 VTI: 37.8 cm MVA(P1/2t): 3.4 cm2 Ao V2 VTI: 32.9 cm AV (velocity ratio): 0.77 LV V1 max: 104.7 cm/sec MR max los: 569.3 cm/sec PA V2 max: 116.3 cm/sec LV V1 max P.4 mmHg MR max P.6 mmHg PA max PG (full): 1.3 mmHg LV V1 mean P.7 mmHg MR mean los: 469.1 cm/sec PA V2 mean: 81.9 cm/sec LV V1 mean: 77.1 cm/sec MR mean P.1 mmHg PA mean PG (full): 0.93 mmHg LV V1 VTI: 25.2 cm MR VTI: 232.4 cm PI dec slope: 166.2 cm/sec2 ECHO/Echo Complete Interpretation Summary Normal LV size. Left ventricular systolic function is normal. The left ventricular ejection fraction is 55 %. Mild concentric left ventricular hypertrophy. Moderate (2+) eccentric mitral valve insufficiency. Ordering Physician: Michael Ramírez Referring Physician: Mala Mcgrath Performed By: Burton De Anda RCS
[2023-09-23] MEDS: Albumin Human 25% (50 mL) 12.5 GM/50 ML IV.SOLN IV (04:41)
[2023-09-23 05:32] LABS: Absolute Lymphocyte Count 2.68 X10^3/uL (0.83-4.51); Absolute Neutrophil Count 8.4 X10^3/uL (2.0-7.7); Basophil# 0.06 X10^3/uL; Basophil% 0.5 % (0-1); Eosinophil# 0.01 X10^3/uL; Eosinophils% 0.1 % (0-5); Hematocrit 39.4 % (37-47); Hemoglobin 12.6 g/dL (12.0-15.0); Lymphocyte # 2.68 X10^3/ul (0.83-4.51); Lymphocyte % 21.9 % (19-41); Mean Corpuscular Hgb 26.9 pg (27.0-32.0); Monocyte# 0.81 X10^3/uL; Monocyte% 6.6 % (0-10); NRBC Flagged by Analyzer 0 % (0-5); Neutrophil # 8.44 X10^3/uL (2.7-7.7); Neutrophil % 68.9 % (47-70); Platelet Count 184 K/mm3 (150-450); RBC Distribution Width CV 16.8 % (11.6-14.6); Red Blood Count 4.69 M/mm3 (4.2-5.4); White Blood Count 12.3 K/mm3 (4.4-11.0)
[2023-09-23 05:36] LABS: Blood Gas Specimen Type VEN; O2 Delivery Device Not entered; SITE Not entered; VBG BASE EXCESS 5 mmol/L (-1.0-3.5); VBG Bicarbonate 30 mmol/L (22-26); VBG PO2 58 mmHg (25-40); VBG SO2 89 % (50-70); VBG TCO2 32 mmol/L (23-33); VBG pCO2 49.6 mmHg (41-51); VBG pH 7.39 (7.32-7.42)
[2023-09-23 05:59] LABS: BNP,B-Type NATRIURETIC PEPTIDE 66.4 pg/mL (0-100)
[2023-09-23 06:13] LABS: ALB/GLOB Ratio 0.9 RATIO (0.9-2.4); AST(SGOT) 23 U/L (15-37); Alanine Aminotransfer ALT/SGPT 25 U/L (13-56); Albumin, Serum 3.4 g/dL (3.2-5.0); Alkaline Phosphatase 124 U/L (45-117); Anion Gap 7 (5-15); BUN 35 mg/dL (7-18); BUN/Creat Ratio 17.8 RATIO (10-20); Calcium,Total 9.2 mg/dL (8.5-10.1); Chloride 99 mmol/L (98-107); Creatinine, Serum 1.97 mg/dL (0.55-1.02); EST Glomerular Filtration Rate 27 mL/min (>60); Est Glom Filt Rate - Afr Amer 33 mL/min (>60); Globulin 3.7 g/dL (2.2-4.2); Glucose 154 mg/dL (74-106); Magnesium 1.3 mg/dL (1.6-2.6); Phosphorus 4.3 mg/dL (2.5-4.9); Potassium 3.8 mmol/L (3.5-5.1); Protein, Total 7.1 g/dL (6.4-8.2); Sodium Level 137 mmol/L (136-145); Thyroid Stim Hormone (TSH) 0.61 uIU/mL (0.358-3.74)
[2023-09-23 07:16] LABS: Bedside Glucose 96 mg/dL (74-106)
[2023-09-23] MEDS: lamoTRIgine 100 MG Tablet PO (07:41)
[2023-09-23] MEDS: Potassium Chloride Oral Tablet 20 MEQ PO (07:42)
[2023-09-23] MEDS: Clopidogrel Bisulfate 75 MG Tablet PO (07:42)
[2023-09-23] MEDS: Aspirin E.C. 81 MG Tablet PO (07:42)
[2023-09-23] MEDS: 0.9% Normal Saline (1000mL) 1,000 ML 75 ML IV ×2 (07:59→17:51)
[2023-09-23] MEDS: 0.9% Saline Lock 10 ML Syringe IV ×4 (07:59→17:51)
[2023-09-23] MEDS: Magnesium Sulfate 2 GM in Dextrose 5%-Water (100mL Bag) 100 ML IV (07:59)
[2023-09-23] MEDS: predniSONE 20 MG Tablet PO (11:04)
[2023-09-23] MEDS: Cholecalciferol (VIT D3) 25 MCG TABLET (1,000 UNITS) 100 MCG PO (11:06)
[2023-09-23] MEDS: Fluticasone 0.05% 1 SPRAY NASAL.SRY 2 SPRAY NASAL (11:07)
--- NOTE | 2023-09-23 11:22 | STRESSREP ---
Stress Test Report Pharmacologic myocardial perfusion stress test. 63-year-old lady with a history of chest pain Resting EKG demonstrates sinus rhythm with T wave inversions noted in 1 and aVL with a rate of 61 bpm. Resting blood pressure is 158/90 mmHg. 0.4 mg of regadenoson was infused per usual protocol followed by rapid intravenous saline flush injection. Continuous EKG monitoring was performed. The maximum heart rate was 71 bpm which was 45 of max impacted heart rate the maximum workload was 1 metabolic equivalent. At rest there were no ST or T wave changes noted to suggest ischemia and at peak infusion nonspecific ST changes were noted which did not meet the criteria for ischemia. No clinical angina is noted. The final blood pressure was 130/72 mmHg. Myocardial perfusion protocol. 15 mCi of technetium 99m sestamibi was injected at rest. 0.4 mg of regadenoson was infused per usual protocol. At peak infusion 44 point mCi of technetium 99m sestamibi was injected stress images were obtained stress and rest images were reconstructed and compared in the short axis vertical long and horizontal long axis. Gated images were also obtained. Perfusion SPECT analysis: Review of the stress images demonstrate normal uptake of tracer noted in all areas of the myocardium. The resting images similar demonstrated normal uptake of tracer noted in all areas of the myocardium. There is a small area in the distal anterior wall with a perfusion defect which is present on the stress and resting images suggesting a focal area of previous infarct anteriorly. Gated SPECT analysis: The gated ejection fraction is 61%. Conclusion: Normal pharmacologic myocardial perfusion stress test. Preserved ejection fraction.
[2023-09-23 11:34] LABS: Bedside Glucose 93 mg/dL (74-106)
--- NOTE | 2023-09-23 11:38 | CASEMGMT ---
Discharge Planning A list of SNF providers including quality and resource use data and consistent with the patient's preferred geographic region, medical needs, and insurance network was created in [employer] Guide.? This list was provided to the RN REDD. Tari Samuels, Discharge Planning Asst.
[2023-09-23] MEDS: Ondansetron 4 MG/2 ML Vial IV (14:25)
--- NOTE | 2023-09-23 15:55 | CASEMGMT ---
SVETLANA RAINEY chart review: Patient was admitted 09/17-09/20/23 for confusion and weakness. See SVETLANA RAINEY assessment from 09/20/23. Patient was discharge to home, declined HHC. She required new oxygen with ambulation and was setup with [employer]. Patient returned to [facility] ED from PCP office after attending her follow-up appt. Patient was admitted for AE of CHF and elevated troponin. SVETLANA RAINEY in to discuss readmission and plans at discharge. Patient states she was taking meds as prescribed and attended her PCP appt. Patient states her PCP ordered her new mask and tubing for bipap and is awaiting delivery. Patient states she was wearing her oxygen as ordered and it was delivered without any issues. Patient states she feel she was discharged too soon. SVETLANA RAINEY discuss progress with therapy and she is agreeable to SNF at discharge as she knows she is weak. RN REDD provided patient with SNF to review and provided preferences in the morning. Patient voiced understanding and had no further questions. SVETLANA CM to updated SW regarding request for SNF. CM will continue to follow this patient and plan for a safe discharge.
--- NOTE | 2023-09-23 16:58 | PCM.PN.HOSP ---
Reason for Visit Reason for Visit: Diagnoses Type 2 diabetes mellitus with hyperglycemia (09/22/23) Obesity, unspecified (09/22/23) Obstructive sleep apnea (adult) (pediatric) (09/22/23) Essential (primary) hypertension (09/22/23) Acute diastolic (congestive) heart failure (09/22/23) Difficulty in walking, not elsewhere classified (09/22/23) Repeated falls (09/22/23) Weakness (09/22/23) Other fatigue (09/22/23) Other specified abnormal findings of blood chemistry (09/22/23) Subjective Subjective Still feels like she has some dizzy and nauseous feeling, also reports some recent headaches and sometimes feeling like her vision is off. Objective Data Objective Data Vital Signs: Vital Signs Temp Pulse Resp BP Pulse Ox O2 Del Method O2 Flow Rate 98.2 F 62 18 126/67 H 98 Nasal Cannula 2 09/23/23 16:42 09/23/23 16:42 09/23/23 16:42 09/23/23 16:42 09/23/23 16:42 09/23/23 16:42 09/23/23 16:42 Oxygen Flow Rate (L/min) 2 Oxygen Delivery Method Nasal Cannula Weight: 92.6 kg Body Mass Index (BMI) 31.9 Intake & Output: Intake and Output for Last 24 Hours 09/21/23 09/22/23 09/23/23 23:59 23:59 23:59 Intake Total 1062.75 / 1062.75 Output Total 0 / 0 Balance 1062.75 / 1062.75 Lab / Micro Data 09/23/23 05:23 09/23/23 05:23 Labs: Laboratory Results - last 24 hr 09/22/23 17:28: WBC 9.1, RBC 4.67, Hgb 12.6, Hct 39.9, MCV 85.4, MCH 27.0, MCHC 31.6 L, RDW Std Deviation 50.4 H, RDW Coeff of Jan 17.1 H, Plt Count 187, MPV 12.0, Immature Gran % (Auto) 2.500 H, Neut % (Auto) 79.0 H, Lymph % (Auto) 15.2 L, [place] % (Auto) 2.4, Eos % (Auto) 0.1, Baso % (Auto) 0.8, Absolute Neuts (auto) 7.2, Absolute Lymphs (auto) 1.38, Nucleated RBC % 0, Sodium 135 L, Potassium 4.6, Chloride 101, Carbon Dioxide 27.0, Anion Gap 7, BUN 30 H, Creatinine 1.79 H, Estim Creat Clear Calc 36.64, Est GFR (MDRD) Af Amer 37 L, Est GFR (MDRD) Non-Af 30 L, BUN/Creatinine Ratio 16.8, Glucose 304 H, Calcium 9.6, Total Bilirubin 0.60, AST 34, ALT 29, Alkaline Phosphatase 127 H, Troponin I High Sens 128 H*, B-Natriuretic Peptide 187.0 H, Total Protein 7.3, Albumin 3.1 L, Globulin 4.2, Albumin/Globulin Ratio 0.7 L, Lipase 28 09/22/23 19:30: Troponin I High Sens 53 09/23/23 00:41: POC Glucose 280 H 09/23/23 05:23: WBC 12.3 H, RBC 4.69, Hgb 12.6, Hct 39.4, MCV 84.0, MCH 26.9 L, MCHC 32.0, RDW Std Deviation 50.0 H, RDW Coeff of Jan 16.8 H, Plt Count 184, MPV 11.0, Immature Gran % (Auto) 2.000 H, Neut % (Auto) 68.9, Lymph % (Auto) 21.9, [place] % (Auto) 6.6, Eos % (Auto) 0.1, Baso % (Auto) 0.5, Absolute Neuts (auto) 8.4 H, Absolute Lymphs (auto) 2.68, Nucleated RBC % 0, Sodium 137, Potassium 3.8, Chloride 99, Carbon Dioxide 31.0, Anion Gap 7, BUN 35 H, Creatinine 1.97 H, Estim Creat Clear Calc 33.40, Est GFR (MDRD) Af Amer 33 L, Est GFR (MDRD) Non-Af 27 L, BUN/Creatinine Ratio 17.8, Glucose 154 H, Calcium 9.2, Phosphorus 4.3, Magnesium 1.3 L, Total Bilirubin 0.50, AST 23, ALT 25, Alkaline Phosphatase 124 H, B-Natriuretic Peptide 66.4, Total Protein 7.1, Albumin 3.4, Globulin 3.7, Albumin/Globulin Ratio 0.9, TSH 0.61 09/23/23 06:57: POC Glucose 96 09/23/23 11:01: POC Glucose 93 ABG Data ABG results: ABG 09/22/23 09/23/23 17:57 05:33 Specimen Type PAMELA PAMELA Sample Site Not entered Not entered VBG pH 7.30 L 7.39 VBG pO2 47 H 58 H VBG HCO3 29 H 30 H VBG Total CO2 31 32 VBG O2 Sat (Calc) 77 H 89 H VBG Base Excess 2 5 H POC Mix VBG pCO2 Pt Tmp 58.6 H 49.6 O2 Delivery Device Not entered Not entered Radiography Diagnostic Testing: Radiology Impression Brain CT 09/22/23 17:48 IMPRESSION: No acute findings in the head/brain. There has been no significant change from the reference exam. Electronically Signed: Rip Buchanan MD at 19:09 EDT , Abdomen/Pelvis CT 09/22/23 17:49 IMPRESSION: 1. Status post colectomy with left lower quadrant ileostomy. There are no acute abnormalities in the abdomen or pelvis. 2. Venous catheter with the distal tip in the coronary sinus. Electronically Signed: Rip Buchanan MD at 19:07 EDT , ADDENDUM: 09/22/231923 IMPRESSION: 1. Status post colectomy with left lower quadrant ileostomy. There are no acute abnormalities in the abdomen or pelvis. 2. Venous catheter with the distal tip in the coronary sinus. N.B. : The above Results were Read Back by Rip Buchanan MD to Taran Leahy DO, and understanding confirmed on 09/22/2023 19:17:48 (ET). Electronically Signed: Rip Buchanan MD at 19:07 EDT , Chest X-Ray 09/22/23 18:15 IMPRESSION: No acute findings in the chest. Electronically Signed: Rip Buchanan MD at 19:10 EDT , Echocardiogram 09/23/23 03:13 Interpretation Summary Normal LV size. Left ventricular systolic function is normal. The left ventricular ejection fraction is 55 %. Mild concentric left ventricular hypertrophy. Moderate (2+) eccentric mitral valve insufficiency. Ordering Physician: Michael Ramírez Referring Physician: Mala Mcgrath Performed By: Burton De Anda RCS Physical Exam Narrative General: Alert, oriented, no apparent distress HEENT: Atraumatic, normocephalic Eyes: Anicteric, normal conjunctiva, extraocular movements intact without any sustained nystagmus, pupils equal Neck: Supple Respiratory: Clear to auscultation bilaterally, normal respiratory effort Cardiovascular: Regular rate GI: Soft, nontender, nondistended Extremities: No edema Musculoskeletal: Moving all extremities Neuro: No overt focal neurological deficits Skin: No rashes appreciated Psych: Cooperative Assessment & Plan Assessment/Plan (1) Elevated troponin: (2) Fatigue: QUALIFIERS: Fatigue type: unspecified Qualified Code(s): R53.83 - Other fatigue (3) Obstructive sleep apnea: (4) Uncontrolled hypertension: (5) Uncontrolled type 2 diabetes mellitus with hyperglycemia: PLAN: Plan # Fatigue and dizziness -Patient reports feeling unwell overall and that she gets some kind of dizzy feelings and also some nausea and stomach cramps -Patient has slight increase in white blood cell count today so we will check UA and urine culture given complaints are vague but do not want to miss potential infection, do not think we need to start empiric antibiotics given patient afebrile with no specific urinary complaints will follow-up UA and culture -BiPAP nightly -TSH within normal limits -B12 checked earlier this year within normal limits -Patient did report donepezil was her most recently added medication and she has been feeling worse since that time and donepezil does have side effect potential of headaches and nausea as well as dizziness and fatigue, will discontinue this -Other medications may also be contributing to her current symptoms, will discontinue donepezil first and discuss Lyrica and Cymbalta with patient in light of her current kidney function #Elevated troponin -Initially 128 and down trended to 53 -Patient had seemed slightly fluid overloaded per admitting physician which was likely the cause of the elevated troponin in addition to her CKD, patient improved quickly -Could also been due to her significant hypertension with systolic pressures in the 180s which is also improved -Stress test negative -Echo unremarkable #Mood d/o NOS and chronic pain -Patient on Suboxone and Lyrica for her chronic pain -Takes trazodone, Lamictal, Cymbalta for mood -Given patient's kidney function her current dose of Cymbalta could be contributory but will DC donepezil first and will need to discuss this medication with patient given her underlying kidney disease and dosing concerns -Additionally Lyrica given her creatinine clearance is higher than recommended, will discuss this medication with her as well -Fever making 1 med change at time if possible so we will first discontinue donepezil and discussed these other medications and decisions with patient #CKDIIIb -Patient appears to have various vacillating kidney function which is slightly up from previous -Receives fluid infusions twice a week and discharged today, will give gentle hydration -Will need to discuss medication adjustments based on her kidney function Chronic problems: #ANKITA -Continue home NIPPV if applicable #Hypertension -Continue home medications #Hx UC -s/p total colectomy #MGUS -F/w Dr. Barajas #DVT ppx: Lovenox subcu Terrie Olson MD Time spent in the patient's overall evaluation,decision-making process, review of diagnostic data, adjustment of management, discussion with other providers, nursing nursing and ancillary staff involved in patient's care documentation, 38 minutes Charges/Coding Visit Charges Inpatient E&M: 58940 Subs Hosp L2
[2023-09-23 17:48] LABS: Bedside Glucose 131 mg/dL (74-106)
[2023-09-23] MEDS: BUPRENORPHINE HCL 150 MCG BUCCAL (21:54)
[2023-09-23 22:22] LABS: Mucous, Urine 0 SEEN /hpf (<or=2+)
[2023-09-23 22:29] LABS: Color, Urine Yellow (Yellow); Glucose, Dipstick Normal (Normal); Ketone-Dipstick 5 mg/dl (Negative); Leukocyte Esterase-Dipstick Negative /ul (Negative); Nitrite-Dipstick Negative (Negative); Occult Blood-Urine 10 /ul (Negative); Protein-Dipstick 100 mg/dl (Negative); Specific Gravity, Urine 1.025 (1.002-1.030); Urine Bilirubin Dipstick Negative (Negative); Urine Clarity Clear (Clear); Urine Urobilinogen Normal (Normal)
[2023-09-23 22:39] LABS: Bacteria 1+ /hpf (None Seen); Hyaline Cast 0-5 SEEN /lpf (0-5); Squamous Epithelial Cells - UA 0-5 SEEN /hpf (5-10); Transitional Epithelial - Ur 0-5 SEEN /hpf (0-5)
[2023-09-23 22:40] LABS: Red Blood Cells-Urine 0-5 SEEN /hpf (0-5); White Blood Cells 0-5 SEEN /hpf (0-5)
[2023-09-23 22:41] LABS: Renal Epithelial Cells 0-5 SEEN /hpf (0-5)
[2023-09-24] VITALS (11 sets, daily range): BP systolic 127–146; BP diastolic 54–68; PULSE 61–77; RESP 16–18; TEMP 36.1–36.8; O2SAT 93–98; BMI 32.3
[2023-09-24] MEDS: Ondansetron 4 MG/2 ML Vial IV (00:36)
[2023-09-24 06:35] LABS: Absolute Lymphocyte Count 2.96 X10^3/uL (0.83-4.51); Absolute Neutrophil Count 6.5 X10^3/uL (2.0-7.7); Basophil# 0.04 X10^3/uL; Basophil% 0.4 % (0-1); Eosinophil# 0.05 X10^3/uL; Eosinophils% 0.5 % (0-5); Hematocrit 40.1 % (37-47); Hemoglobin 12.5 g/dL (12.0-15.0); Lymphocyte # 2.96 X10^3/ul (0.83-4.51); Lymphocyte % 28.6 % (19-41); Mean Corp Hgb Conc 31.2 g/dL (32-36); Mean Corpuscular Hgb 26.9 pg (27.0-32.0); Mean Corpuscular Volume 86.4 fL (81-99); Monocyte# 0.62 X10^3/uL; NRBC Flagged by Analyzer 0 % (0-5); Neutrophil # 6.52 X10^3/uL (2.7-7.7); Neutrophil % 62.9 % (47-70); Platelet Count 184 K/mm3 (150-450); RBC Distribution Width CV 16.8 % (11.6-14.6); RBC Distribution Width SD 51.8 fl (35.1-43.9); Red Blood Count 4.64 M/mm3 (4.2-5.4); White Blood Count 10.4 K/mm3 (4.4-11.0)
[2023-09-24 07:10] LABS: ALB/GLOB Ratio 0.9 RATIO (0.9-2.4); AST(SGOT) 23 U/L (15-37); Alanine Aminotransfer ALT/SGPT 23 U/L (13-56); Alkaline Phosphatase 148 U/L (45-117); Anion Gap 6 (5-15); BUN 48 mg/dL (7-18); BUN/Creat Ratio 24.7 RATIO (10-20); Calcium,Total 9.1 mg/dL (8.5-10.1); Chloride 105 mmol/L (98-107); Creatinine, Serum 1.94 mg/dL (0.55-1.02); EST Glomerular Filtration Rate 28 mL/min (>60); Est Glom Filt Rate - Afr Amer 33 mL/min (>60); Estimated Creatinine Clearance 33.94 ml/min; Globulin 3.3 g/dL (2.2-4.2); Glucose 150 mg/dL (74-106); Potassium 3.9 mmol/L (3.5-5.1); Protein, Total 6.3 g/dL (6.4-8.2); Sodium Level 140 mmol/L (136-145)
--- NOTE | 2023-09-24 09:32 | CASEMGMT ---
SW was informed patient was agreeable to SNF. SW met with patient. Introduced self and role at [facility]. Patient confirmed she would like to go to a SNF. Patient's 3 choices off of her SNF list are [facility], [facility], and [facility]. SW let patient know SW will work on referrals and let her know when SW hears back. Patient is aware she will wait at [facility] until her insurance approves. SHWETHA faxed a referral to [facility] ([phone]). SHWETHA also called Jade at [facility] and let her know SW is sending a referral. May Shin SHIPPING AND RECEIVING SUPERVISOR TRINY
[2023-09-24] MEDS: BUPRENORPHINE HCL 150 MCG BUCCAL ×2 (09:42→20:32)
[2023-09-24] MEDS: Cholecalciferol (VIT D3) 25 MCG TABLET (1,000 UNITS) 100 MCG PO (09:42)
[2023-09-24] MEDS: Fluticasone 0.05% 1 SPRAY NASAL.SRY 2 SPRAY NASAL (09:42)
[2023-09-24] MEDS: Pregabalin 75 MG Capsule PO ×2 (09:42→20:33)
[2023-09-24] MEDS: Metoprolol Tartrate 25 MG Tablet 75 MG PO (09:43)
[2023-09-24] MEDS: Clopidogrel Bisulfate 75 MG Tablet PO (09:43)
[2023-09-24] MEDS: Pantoprazole Sodium 40 MG Tablet PO ×2 (09:43→20:45)
[2023-09-24] MEDS: lamoTRIgine 100 MG Tablet PO (09:43)
[2023-09-24] MEDS: Aspirin E.C. 81 MG Tablet PO (09:44)
[2023-09-24] MEDS: Potassium Chloride Oral Tablet 20 MEQ PO (09:44)
[2023-09-24] MEDS: DULoxetine Hcl 60 MG Capsule PO (09:44)
[2023-09-24] MEDS: Magnesium Chloride 64 MG Delay Rel.Tablet 128 MG PO ×2 (09:44→20:46)
[2023-09-24] MEDS: Dicyclomine 10 MG Capsule PO ×2 (09:44→20:45)
[2023-09-24] MEDS: Enoxaparin 40 MG/0.4 ML Syringe SC (09:45)
--- NOTE | 2023-09-24 10:31 | CASEMGMT ---
[facility] accepted patient and will start pre-cert. will notify patient. Plan: d/c to [facility] pending insurance approval. May AGOSTO
[2023-09-24] MEDS: Isosorbide DN 30 MG Tablet PO ×2 (11:03→20:39)
[2023-09-24] MEDS: Dextrose 10%-Water 250 ML 999 ML IV (12:26)
[2023-09-24 12:37] LABS: Bedside Glucose 49 mg/dL (74-106)
[2023-09-24 13:08] LABS: Bedside Glucose 165 mg/dL (74-106)
--- NOTE | 2023-09-24 13:54 | CASEMGMT ---
Addendum entered by Marietta Duncan 09/24/23 16:24: Social Work SW received an email from [facility] stating pt's hospital exemption is approved, so pt can go to SNF when ready. SW will place green sheet on the chart in the event pt can be discharged to SNF on the weekend. MOODY Castillo Addendum entered by Marietta Duncan 09/24/23 14:47: Social Work SW faxed hospital exemption to [facility]. SW called [facility] for clarification, they will send an email stating the exemption is approved. Once SW receives the email, SW will place green sheet on the chart. MOODY Gracia Original Note: Social Work SW completed the hospital exemption, faxed it to [facility] as the [facility] system is down. SW called to find out the process of knowing if the exemption is approved, SW is to get a call or email back. MOODY Gracia
--- NOTE | 2023-09-24 14:07 | CASEMGMT ---
Patient was approved for [facility]. [id number] completed and faxed to [facility] as [facility] online system is down. Plan: d/c to [facility] under skilled level of care when medically ready. May AGOSTO
[2023-09-24 15:06] LABS: Bedside Glucose 214 mg/dL (74-106)
--- NOTE | 2023-09-24 15:37 | PCM.PN.HOSP ---
Reason for Visit Reason for Visit: Diagnoses Type 2 diabetes mellitus with hyperglycemia (09/22/23) Obesity, unspecified (09/22/23) Obstructive sleep apnea (adult) (pediatric) (09/22/23) Essential (primary) hypertension (09/22/23) Acute diastolic (congestive) heart failure (09/22/23) Difficulty in walking, not elsewhere classified (09/22/23) Repeated falls (09/22/23) Weakness (09/22/23) Other fatigue (09/22/23) Other specified abnormal findings of blood chemistry (09/22/23) Subjective Subjective Feels slightly better but still a little fuzzy and light headed at times, open to medication adjustments Objective Data Objective Data Vital Signs: Vital Signs Temp Pulse Resp BP Pulse Ox O2 Del Method O2 Flow Rate 98.3 F 77 18 127/63 H 97 Room Air 2 09/24/23 09:40 09/24/23 09:43 09/24/23 09:40 09/24/23 09:40 09/24/23 11:25 09/24/23 14:21 09/24/23 11:25 FiO2 21 09/23/23 23:30 Oxygen Flow Rate (L/min) 2 Oxygen Delivery Method Room Air Weight: 93.5 kg Body Mass Index (BMI) 32.3 Intake & Output: Intake and Output for Last 24 Hours 09/22/23 09/23/23 09/24/23 23:59 23:59 23:59 Intake Total 1512.75 / 1712.75 1750 / 1750 Output Total 400 / 400 0 / 0 Balance 1112.75 / 1312.75 1750 / 1750 Lab / Micro Data 09/24/23 06:17 09/24/23 06:17 Labs: Laboratory Results - last 24 hr 09/23/23 17:29: POC Glucose 131 H 09/23/23 22:00: Urine Color Yellow, Urine Clarity Clear, Urine pH 5.0, Ur Specific [place] 1.025, Urine Protein 100 H, Urine Glucose (UA) Normal, Urine Ketones 5 H, Urine Occult Blood 10 H, Urine Nitrite Negative, Urine Bilirubin Negative, Urine Urobilinogen Normal, Ur Leukocyte Esterase Negative, Urine RBC 0-5 SEEN, Urine WBC 0-5 SEEN, Ur Squamous Epith Cells 0-5 SEEN, Ur Transition Epith Cell 0-5 SEEN, Ur Renal Epithelial Cell 0-5 SEEN, Urine Bacteria 1+, Hyaline Casts 0-5 SEEN, Urine Mucus 0 SEEN 09/24/23 06:17: WBC 10.4, RBC 4.64, Hgb 12.5, Hct 40.1, MCV 86.4, MCH 26.9 L, MCHC 31.2 L, RDW Std Deviation 51.8 H, RDW Coeff of Jan 16.8 H, Plt Count 184, MPV 12.0, Immature Gran % (Auto) 1.600 H, Neut % (Auto) 62.9, Lymph % (Auto) 28.6, [place] % (Auto) 6.0, Eos % (Auto) 0.5, Baso % (Auto) 0.4, Absolute Neuts (auto) 6.5, Absolute Lymphs (auto) 2.96, Nucleated RBC % 0, Sodium 140, Potassium 3.9, Chloride 105, Carbon Dioxide 29.0, Anion Gap 6, BUN 48 H, Creatinine 1.94 H, Estim Creat Clear Calc 33.94, Est GFR (MDRD) Af Amer 33 L, Est GFR (MDRD) Non-Af 28 L, BUN/Creatinine Ratio 24.7 H, Glucose 150 H, Calcium 9.1, Magnesium 2.0, Total Bilirubin 0.50, AST 23, ALT 23, Alkaline Phosphatase 148 H, Total Protein 6.3 L, Albumin 3.0 L, Globulin 3.3, Albumin/Globulin Ratio 0.9 09/24/23 12:19: POC Glucose 49 L 09/24/23 12:48: POC Glucose 165 H 09/24/23 14:47: POC Glucose 214 H Physical Exam Narrative General: Alert, oriented, no apparent distress HEENT: Atraumatic, normocephalic Eyes: Anicteric, normal conjunctiva, extraocular movements intact without any sustained nystagmus, pupils equal Neck: Supple Respiratory: Clear to auscultation bilaterally, normal respiratory effort Cardiovascular: Regular rate GI: Soft, nontender, nondistended Extremities: No edema Musculoskeletal: Moving all extremities Neuro: No overt focal neurological deficits Skin: No rashes appreciated Psych: Cooperative Assessment & Plan Assessment/Plan (1) Elevated troponin: (2) Fatigue: QUALIFIERS: Fatigue type: unspecified Qualified Code(s): R53.83 - Other fatigue (3) Obstructive sleep apnea: (4) Uncontrolled hypertension: (5) Uncontrolled type 2 diabetes mellitus with hyperglycemia: PLAN: Plan # Fatigue and dizziness -Patient reports feeling unwell overall and that she gets some kind of dizzy feelings and also some nausea and stomach cramps -Patient has slight increase in white blood cell count today so we will check UA and urine culture given complaints are vague but do not want to miss potential infection, do not think we need to start empiric antibiotics given patient afebrile with no specific urinary complaints will follow-up UA and culture -BiPAP nightly -TSH within normal limits -B12 checked earlier this year within normal limits -Patient did report donepezil was her most recently added medication and she has been feeling worse since that time and donepezil does have side effect potential of headaches and nausea as well as dizziness and fatigue, will discontinue this -Other medications may also be contributing to her current symptoms, will discontinue donepezil first and discuss Lyrica and Cymbalta with patient in light of her current kidney function -09/23: slightly improved today w/ d/c of donepezil, agreeable to adjustment of other medications as below. Pt plan for SNF for rehab prior to d/c home #Mood d/o NOS and chronic pain -Patient on Suboxone and Lyrica for her chronic pain -Takes trazodone, Lamictal, Cymbalta for mood -Given patient's kidney function her current dose of Cymbalta could be contributory but will DC donepezil first and will need to discuss this medication with patient given her underlying kidney disease and dosing concerns -Additionally Lyrica given her creatinine clearance is higher than recommended, will discuss this medication with her as well -Fever making 1 med change at time if possible so we will first discontinue donepezil and discussed these other medications and decisions with patient -09/23: Pt agreeable to slow tapering of Cymbalta and lyrica. Could have negative impact if done too quickly so will go down slightly and will ultimately need further taper #Diabetes mellitus -Pt uses insulin pump and manages own glucose, has quite variable glucoses -Did have a low glucose earlier so discussed with patient's banjo repair person and patient has closed-loop system so if she becomes hypoglycemic will turn off and glucose will release from the liver correcting her hypoglycemia, it was advised we can still give her juice or something to help boost her glucose and at this time we can continue to have patient using home insulin pump -Discussed with patient's nurse as well #CKDIIIb -Patient appears to have various vacillating kidney function which is slightly up from previous -Receives fluid infusions twice a week and discharged today, will give gentle hydration -Will need to discuss medication adjustments based on her kidney function -09/23: Cr similar but BUN increased, given high output ostomy and routine fluid admin will give IVF, suspect slightly dry #Hx UC -s/p total colectomy -09/23: Pt reports hx of high output ostomy so she receives IVF infusions twice weekly, will give IVF #Elevated troponin- resolved -Initially 128 and down trended to 53 -Patient had seemed slightly fluid overloaded per admitting physician which was likely the cause of the elevated troponin in addition to her CKD, patient improved quickly -Could also been due to her significant hypertension with systolic pressures in the 180s which is also improved -Stress test negative -Echo unremarkable Chronic problems: #ANKITA -Continue home NIPPV if applicable #Hypertension -Continue home medications #MGUS -F/w Dr. Barajas #DVT ppx: Lovenox subcu Terrie Olson MD Time spent in the patient's overall evaluation,decision-making process, review of diagnostic data, adjustment of management, discussion with other providers, nursing nursing and ancillary staff involved in patient's care documentation, 56 minutes Charges/Coding Visit Charges Inpatient E&M: 59672 [facility] Hosp L3
[2023-09-24] MEDS: 0.9% Saline Lock 10 ML Syringe IV (16:32)
[2023-09-24] MEDS: 0.9% Normal Saline (1000mL) 1,000 ML 125 ML IV (16:32)
[2023-09-24] MEDS: Acetaminophen 325 MG Tablet 650 MG PO (17:26)
[2023-09-24 17:40] LABS: Bedside Glucose 154 mg/dL (74-106)
[2023-09-24] MEDS: Atorvastatin Calcium 80 MG Tablet PO (20:39)
[2023-09-24] MEDS: MELATONIN 10 MG TABLET 5 MG PO (20:45)
[2023-09-24] MEDS: DULoxetine Hcl 30 MG Capsule PO (20:46)
[2023-09-24] MEDS: traZODone 50 MG Tablet PO (20:46)
[2023-09-25] VITALS (8 sets, daily range): BP systolic 109–150; BP diastolic 53–60; PULSE 63–75; RESP 18; TEMP 36.1–36.6; O2SAT 93–96; BMI 32.4
[2023-09-25 00:57] LABS: Bedside Glucose 159 mg/dL (74-106)
[2023-09-25 06:32] LABS: Absolute Lymphocyte Count 2.26 X10^3/uL (0.83-4.51); Absolute Neutrophil Count 4.1 X10^3/uL (2.0-7.7); Basophil# 0.06 X10^3/uL; Basophil% 0.8 % (0-1); Eosinophil# 0.26 X10^3/uL; Eosinophils% 3.5 % (0-5); Hematocrit 39.3 % (37-47); Hemoglobin 12.2 g/dL (12.0-15.0); Lymphocyte # 2.26 X10^3/ul (0.83-4.51); Lymphocyte % 30.6 % (19-41); Mean Corpuscular Hgb 27.2 pg (27.0-32.0); Mean Corpuscular Volume 87.7 fL (81-99); Mean Platelet Vol. 11.8 fl (6.2-12.0); Monocyte# 0.58 X10^3/uL; Monocyte% 7.8 % (0-10); NRBC Flagged by Analyzer 0 % (0-5); Neutrophil # 4.12 X10^3/uL (2.7-7.7); Neutrophil % 55.8 % (47-70); Platelet Count 162 K/mm3 (150-450); RBC Distribution Width SD 53.1 fl (35.1-43.9); Red Blood Count 4.48 M/mm3 (4.2-5.4); White Blood Count 7.4 K/mm3 (4.4-11.0)
[2023-09-25 06:52] LABS: Bedside Glucose 84 mg/dL (74-106)
[2023-09-25 07:03] LABS: ALB/GLOB Ratio 0.9 RATIO (0.9-2.4); AST(SGOT) 25 U/L (15-37); Alanine Aminotransfer ALT/SGPT 25 U/L (13-56); Albumin, Serum 2.8 g/dL (3.2-5.0); Alkaline Phosphatase 150 U/L (45-117); Anion Gap 4 (5-15); BUN 46 mg/dL (7-18); BUN/Creat Ratio 25.7 RATIO (10-20); Calcium,Total 8.6 mg/dL (8.5-10.1); Chloride 111 mmol/L (98-107); Creatinine, Serum 1.79 mg/dL (0.55-1.02); EST Glomerular Filtration Rate 30 mL/min (>60); Est Glom Filt Rate - Afr Amer 37 mL/min (>60); Estimated Creatinine Clearance 36.86 ml/min; Globulin 3.2 g/dL (2.2-4.2); Glucose 108 mg/dL (74-106); Potassium 4.3 mmol/L (3.5-5.1); Sodium Level 141 mmol/L (136-145)
[2023-09-25] MEDS: Acetaminophen 500 MG Tablet 1000 MG PO ×2 (09:33→13:23)
[2023-09-25] MEDS: oxyCODONE 5 MG Tablet PO (09:34)
[2023-09-25] MEDS: Enoxaparin 40 MG/0.4 ML Syringe SC (09:34)
[2023-09-25] MEDS: cycloBENZAPRine HCl 10 MG Tablet PO (09:34)
[2023-09-25] MEDS: Potassium Chloride Oral Tablet 20 MEQ PO (09:34)
[2023-09-25] MEDS: 0.9% Normal Saline (1000mL) 1,000 ML 999 ML IV (09:34)
[2023-09-25] MEDS: Empagliflozin 25 MG Tablet PO (09:35)
[2023-09-25] MEDS: Aspirin E.C. 81 MG Tablet PO (09:35)
[2023-09-25] MEDS: Magnesium Chloride 64 MG Delay Rel.Tablet 128 MG PO (09:35)
[2023-09-25] MEDS: Cholecalciferol (VIT D3) 25 MCG TABLET (1,000 UNITS) 100 MCG PO (09:35)
[2023-09-25] MEDS: Fluticasone 0.05% 1 SPRAY NASAL.SRY 2 SPRAY NASAL (09:35)
[2023-09-25] MEDS: Clopidogrel Bisulfate 75 MG Tablet PO (09:36)
[2023-09-25] MEDS: Metoprolol Tartrate 25 MG Tablet 75 MG PO (09:36)
[2023-09-25] MEDS: Pantoprazole Sodium 40 MG Tablet PO (09:36)
[2023-09-25] MEDS: Isosorbide DN 30 MG Tablet PO (09:36)
[2023-09-25] MEDS: Dicyclomine 10 MG Capsule PO (09:36)
[2023-09-25] MEDS: lamoTRIgine 100 MG Tablet PO (09:36)
[2023-09-25] MEDS: DULoxetine Hcl 60 MG Capsule PO (09:37)
[2023-09-25] MEDS: BUPRENORPHINE HCL 150 MCG BUCCAL (09:37)
[2023-09-25] MEDS: Pregabalin 50 MG Capsule PO (09:39)
[2023-09-25] MEDS: Insulin Basal Pump 120 UNIT SC (09:47)
[2023-09-25] MEDS: Arthritis Pain Compound 60 CLICK TUBE TOPICAL ×2 (09:54→13:23)
[2023-09-25] MEDS: Diphenoxylate/Atrop 1 Tablet PO (09:54)
[2023-09-25 11:53] LABS: Bedside Glucose 231 mg/dL (74-106)
--- NOTE | 2023-09-25 12:15 | PCM.TXEXTCAR ---
Diet Diet Order/Speech Therapy: 09/23/23 11:35 Diet: Cardiac - Heart Healthy Dietary Modifications:: Consistent Carbohydrate Is pt able to select menu?: Yes Routine Orders/Code Status Suppository Type: Dulcolax 10mg Suppository Frequency: Daily PRN O2 Liters per Minute: 2 with ambulation primarily O2 Frequency: PRN Therapies Physical Therapy: Eval and Treat Occupational Therapy: Eval and Treat Problem/Diagnosis (1) Fatigue: Status: Acute Code(s): R53.83 - Other fatigue (2) Obstructive sleep apnea: Status: Acute Code(s): G47.33 - Obstructive sleep apnea (adult) (pediatric) Comment: BiPAP 13/9 centimeters of water (3) Elevated troponin: Status: Acute Code(s): R79.89 - Other specified abnormal findings of blood chemistry (4) Uncontrolled hypertension: Status: Acute Code(s): I10 - Essential (primary) hypertension (5) Uncontrolled type 2 diabetes mellitus with hyperglycemia: Status: Acute Code(s): E11.65 - Type 2 diabetes mellitus with hyperglycemia (6) Herpes genitalia: Status: Chronic Code(s): A60.00 - Herpesviral infection of urogenital system, unspecified (7) Chronic kidney disease: Status: Inactive Code(s): N18.9 - Chronic kidney disease, unspecified Plan # Fatigue and dizziness- adverse medication effects #Mood d/o NOS and chronic pain #Diabetes mellitus #CKDIIIb #Hx UC #Elevated troponin- resolved #ANKITA #Hypertension #MGUS 63-year-old female history of type 1 diabetes with insulin pump, hypertension, ulcerative colitis with colectomy and high output ostomy receiving IV fluids twice weekly, CKD stage III, mood disorder, chronic pain who presented to [facility] ED 09/22/2023 due to fatigue and weakness after being discharged several days prior for hospitalization for similar reason. Patient initially had slightly elevated troponin and it was felt there may be a component of fluid overload however this resolved with IV fluids. Given patient's fatigue and dizzy feeling broad workup and no acute problems identified however looked through patient's medication list and her kidney function and discussed tapering Lyrica and Cymbalta slightly as these may be too high doses for her kidney function and may be causing these side effects. Also given her recent headaches and stomach upset her donepezil has been held. Patient did improve, on day of discharge main complaint was sciatica on the left side which is worsening of her chronic pain however feels the beds have played a significant part of this. Tylenol was scheduled and topical arthritis cream started. Additionally patient has had an outbreak of herpes and was supposed to start Valtrex on an outpatient basis so this was started for her. No other new or acute complaints. 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 These can likely be down titrated slightly more if you continue to have problems with fatigue or dizziness as you have decreased clearance with your kidneys -Continue fluid infusions twice weekly, you indicated that you get 2 L each time and this can be continued through your port Allergies/Procedures Done in Hospital Allergies cinnamon (Cinnamon) Allergy (Severe, Verified 09/22/23 16:39) Anaphylaxis Influenza Virus Vaccines Allergy (Severe, Verified 09/22/23 16:39) Shortness of breath liraglutide (From Victoza) Allergy (Severe, Verified 09/22/23 16:39) Anaphylaxis ciprofloxacin Allergy (Intermediate, Verified 09/22/23 16:39) Swelling metformin (From Glucophage) Allergy (Mild, Verified 09/22/23 16:39) Nausea metronidazole (From Flagyl) Allergy (Verified 09/22/23 16:39) Hives Metronidazole HCl (From Flagyl) Allergy (Verified 09/22/23 16:39) Hives Penicillins Allergy (Verified 09/22/23 16:39) Hives Sulfa (Sulfonamide Antibiotics) Allergy (Verified 09/22/23 16:39) Hives aripiprazole (From Abilify) Adverse Reaction (Verified 09/22/23 16:39) hallucinations metformin HCl (From Glucophage) Adverse Reaction (Verified 09/22/23 16:39) Nausea ranolazine Adverse Reaction (Verified 09/22/23 16:39) Nausea/Vom/Diarrhea [id number] Reductase Inhibitor (Lrzngjz-Xpr-Byw Reductase Inhibitor) Adverse Reaction (Verified 09/22/23 16:39) Nausea/joints ache Type of Care/Length of Stay Estimated LOS: Convalescent Care Less Than 30 days Type of Care Needed: Skilled Rehab Potential: Fair Prognosis: Fair Additional Orders/Day of Discharge Day of Discharge: 09/25/23 Dietary and Speech Recommendations Dietitian Recommendations/Changes: Change diet to consistent carb/cardiac diet. Will offer more nutrition educated per pt's request. Reviewed and approved by Azucena Hubbard RD, LD Discharge Plan Admission Admit Date/Time: 09/22/23 21:28 Primary Reason for Your Visit: Dizziness and fatigue Attending Provider: Terrie Olson Primary Care Provider: Mala Mcgrath Consulting Providers: Michael Ramírez Instructions Patient Instructions: ED Fall Prevention Additional Instructions / Restrictions: DISCHARGE INSTRUCTIONS PLEASE READ *Please take this with you to your next doctors appointment* -Due to herpes outbreak you have been started on Valtrex, you need to take 1 g once daily for 5 days -Will be important to continue BiPAP -Continue using insulin pump and 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 These can likely be down titrated slightly more if you continue to have problems with fatigue or dizziness as you have decreased clearance with your kidneys -Continue fluid infusions twice weekly, you indicated that you get 2 L each time and this can be continued through your port -Please call your primary care provider's office upon discharge to schedule a hospital follow up within 1 week. -For any concerning signs or symptoms please call 911 or proceed to the nearest emergency department Discharge Orders/Prescriptions Prescriptions: New Arthritis Pain Compound 0 click topical TID Qty: 0 0RF acetaminophen 500 mg Tablet 1,000 mg PO Q8 Qty: 0 0RF duloxetine 30 mg Capsule,Delayed Release(Dr/Ec) 30 mg PO QHS Qty: 0 0RF duloxetine 60 mg Capsule,Delayed Release(Dr/Ec) 60 mg PO DAILY Qty: 0 0RF pregabalin 50 mg Capsule 50 mg PO DAILY Qty: 0 0RF pregabalin 75 mg Capsule 75 mg PO QHS Qty: 0 0RF Continued nitroglycerin 0.4 mg tablet, sublingual 0.4 mg sublingual Q5-15M PRN (Reason: chest pain) Qty: 25 6RF Rx Instructions: do not exceed 3 doses per episode (DME) Handicap Placard See Rx Instructions .ROUTE .MEDSUPPLY Qty: 1 0RF Rx Instructions: As directed, length of time 3 years (DME) True Metrix Glucose Test Strip Strip See Rx Instructions .Route Qty: 100 5RF Rx Instructions: TID cholecalciferol (vitamin D3) 1,250 mcg (50,000 unit) capsule 1,250 mcg PO QWEEK Qty: 4 4RF cyclobenzaprine 10 mg tablet 10 mg PO TID PRN (Reason: muscle spasm) Qty: 30 0RF cholecalciferol (vitamin D3) 50 mcg (2,000 unit) capsule 100 mcg PO DAILY Qty: 60 5RF (DME) Bipap Mask and Tubing See Rx Instructions .Route .MEDSUPPLY Qty: 1 3RF Rx Instructions: As directed fluticasone propionate [Flonase Allergy Relief] 50 mcg/actuation spray,suspension 2 spray intranasal DAILY Qty: 16 3RF Rx Instructions: administer into each nostril aspirin 81 mg tablet,delayed release (DR/EC) 81 mg PO DAILY (DME) True Metrix Glucose Test Strip Strip See Rx Instructions .Route Rx Instructions: 3 times per day No longer (DME) Dexcom G6 Process Control Operator [facility] See Rx Instructions .ROUTE .MEDSUPPLY Rx Instructions: As directed (DME) pen needle, diabetic [BD Ultra-Fine Key Pen Needle] 32 gauge x 5/32 needle See Rx Instructions .ROUTE .MEDSUPPLY Rx Instructions: takes 5 injection/day (DME) Wheel Chair See Rx Instructions Rx Instructions: As directed trazodone 50 mg tablet 50 mg PO QHS diphenoxylate-atropine [Lomotil] 2.5-0.025 mg tablet 1 tab PO TID PRN (Reason: diarrhea) buprenorphine HCl 150 mcg film 150 mcg buccal Q12H metoprolol tartrate 25 mg tablet 75 mg PO BID Rx Instructions: 25 mg orally take with a 50 mg tablet twice a day to = 75 mg twice a day; sumatriptan succinate [Imitrex] 25 mg tablet See Rx Instructions .ROUTE .COMPLEX Qty: 10 0RF Rx Instructions: take 1 tab at onset of headache; if no relief may repeat 1 tab after at least 2 hrs; max = 4 tabs/24 hr lamotrigine 200 mg tablet 100 mg PO DAILY albuterol sulfate 90 mcg/actuation HFA aerosol inhaler 2 puff INHALATION BID PRN (Reason: SOB) dicyclomine 10 mg Capsule 10 mg PO BID 30 Days Qty: 60 0RF benzonatate 200 mg capsule PO cholestyramine (with sugar) 4 gram powder in packet 1 ea PO BID dapagliflozin propanediol [Farxiga] 10 mg tablet 10 mg PO DAILY melatonin 5 mg capsule PO QHS (DME) ostomy supplies See Rx Instructions .Route .MEDSUPPLY Qty: 1 0RF Rx Instructions: Pouches Barrier rings Adhesive remover Skin Prep Barrier powder isosorbide dinitrate 30 mg tablet 30 mg PO BID Qty: 60 11RF (DME) Juanita Cohesive Seal 2 diameter See Rx Instructions .Route .MEDSUPPLY Qty: 15 7RF Rx Instructions: As directed (DME) Esenta Sting Free Adhesive Remover Wipe - See Rx Instructions .Route .MEDSUPPLY Qty: 15 7RF Rx Instructions: As directed (DME) Esenta Sting Free Skin Barrier [place], 50 mL - See Rx Instructions .Route .MEDSUPPLY Qty: 15 7RF Rx Instructions: As directed (DME) Esteem + Convex One-Piece Drainable Pre-Cut Pouch w/visiClose, Durahesive, 12 panel [place], 1 18 See Rx Instructions .Route .MEDSUPPLY Qty: 15 7RF Rx Instructions: As directed clopidogrel 75 mg tablet 75 mg PO DAILY Qty: 90 3RF Rx Instructions: TAKE 1 TABLET BY MOUTH EVERY DAY Humalog KwikPen Insulin 200 unit/mL (3 mL) insulin pen 160 unit subcut DAILY Qty: 72 3RF Patient Comments: per pt pump broke 3 days ago Rx Instructions: 2.05 units/hr from 12 AM to 6:30 AM 2.15 units/hr from 6:30 AM to 12 AM pantoprazole [Protonix] 40 mg tablet,delayed release (DR/EC) 40 mg PO BID Qty: 60 11RF (DME) Dexcom G6 Sensor Device See Rx Instructions .ROUTE .MEDSUPPLY Qty: 9 1RF Rx Instructions: 1 sensor every 10 days (DME) Dexcom G6 Transmitter Device See Rx Instructions .ROUTE .MEDSUPPLY Qty: 1 3RF Rx Instructions: 1 transmitter every 90 days (DME) Omnipod 5 G6 Pods (Gen 5) Cartridge See Rx Instructions .Route Qty: 45 1RF Rx Instructions: 1 pod q 48 hours atorvastatin 80 mg tablet 80 mg PO QHS Qty: 90 3RF Patient Comments: cholesterol Changed valacyclovir 500 mg tablet 1,000 mg PO DAILY 5 Days Qty: 10 0RF Discontinued duloxetine 30 mg capsule,delayed release(/EC) 90 mg PO BID Patient Comments: per pt changed to 60 mg BID donepezil 5 mg tablet 5 mg PO QHS Qty: 30 0RF donepezil 10 mg tablet 10 mg PO QHS Qty: 30 5RF Rx Instructions: Begin after completing one month of treatment of donepezil 5mg nightly acetaminophen 325 mg Tablet 1,000 mg PO Q8 PRN (Reason: Pain 1-10 Or Fever>100.7) Qty: 0 0RF prednisone 20 mg Tablet 40 mg PO BREAKFAST Rx Instructions: stop taking 09/23/2023 pregabalin 75 mg capsule 75 mg PO BID Qty: 56 0RF Referrals / Follow Up: Mala Mcgrath MD [Primary Care Provider] - Within 1 Week Disposition Disposition (needs filled in before D/C Order can be placed): [facility] (1) Fatigue Qualifiers: Fatigue type: unspecified Qualified Code(s): R53.83 - Other fatigue (6) Herpes genitalia Qualifiers: Herpes simplex infection site: unspecified Qualified Code(s): A60.00 - Herpesviral infection of urogenital system, unspecified
--- NOTE | 2023-09-25 12:48 | DS.PCM_ITS ---
Providers Date of Admission: 09/22/23 Date of Discharge: 09/25/23 Primary Care Physician: Dr. Mala Mcgrath MD Reason For Visit: Persistent fatigue Diagnosis Discharge Diagnosis (1) Fatigue: Status: Acute Code(s): R53.83 - Other fatigue Qualifiers: Fatigue type: unspecified Qualified Code(s): R53.83 - Other fatigue (2) Obstructive sleep apnea: Status: Acute Code(s): G47.33 - Obstructive sleep apnea (adult) (pediatric) (3) Elevated troponin: Status: Acute Code(s): R79.89 - Other specified abnormal findings of blood chemistry (4) Uncontrolled hypertension: Status: Acute Code(s): I10 - Essential (primary) hypertension (5) Uncontrolled type 2 diabetes mellitus with hyperglycemia: Status: Acute Code(s): E11.65 - Type 2 diabetes mellitus with hyperglycemia (6) Herpes genitalia: Status: Chronic Code(s): A60.00 - Herpesviral infection of urogenital system, unspecified Qualifiers: Herpes simplex infection site: unspecified Qualified Code(s): A60.00 - Herpesviral infection of urogenital system, unspecified (7) Chronic kidney disease: Status: Inactive Code(s): N18.9 - Chronic kidney disease, unspecified Plan # Fatigue and dizziness- adverse medication effects #Mood d/o NOS and chronic pain #Diabetes mellitus #CKDIIIb #Hx UC #Elevated troponin- resolved #ANKITA #Hypertension #MGUS Medications at Discharge Home Medications Wheel Chair 11/15/21 blood sugar diagnostic (True Metrix Glucose Test Strip) 11/15/21 blood-glucose meter,continuous (Dexcom G6 Insurance Healthcare Consultant) 11/15/21 pen needle, diabetic 32 gauge x 5/32 (BD Ultra-Fine Key Pen Needle) 11/15/21 nitroglycerin 0.4 mg sublingual tablet 0.4 mg sublingual Q5-15M PRN chest pain #25 tabs 11/20/21 ostomy supplies #1 ea 02/13/22 Handicap Placard #1 ea 09/16/22 isosorbide dinitrate 30 mg tablet 30 mg PO BID heart #60 tabs 12/11/22 Juanita Cohesive Seal 2 diameter #15 ea 01/18/23 Esenta Sting Free Adhesive Remover Wipe - #15 ea 01/18/23 Esenta Sting Free Skin Barrier Burnside, 50 mL - #15 ea 01/18/23 Esteem + Convex One-Piece Drainable Pre-Cut Pouch w/visiClose, Durahesive, 12 panel [place], 1 03/15 #15 ea 01/18/23 clopidogrel 75 mg tablet 75 mg PO DAILY heart health #90 tabs 02/04/23 blood sugar diagnostic (True Metrix Glucose Test Strip) #100 ea 02/08/23 cyclobenzaprine 10 mg tablet 10 mg PO TID PRN muscle spasm #30 tabs 02/24/23 trazodone 50 mg tablet 50 mg PO QHS sleep 03/18/23 insulin lispro 200 unit/mL (3 mL) subcutaneous pen (Humalog KwikPen U-200 Insulin) 160 unit (0.8 mL) subcut DAILY diabetes #72 mL 04/21/23 pantoprazole 40 mg tablet,delayed release (Protonix) 40 mg PO BID GERD #60 tabs 04/29/23 albuterol sulfate 90 mcg/actuation aerosol inhaler 2 puff inhalation BID PRN SOB 05/01/23 lamotrigine 200 mg tablet 100 mg PO DAILY mood 05/01/23 dicyclomine 10 mg capsule 10 mg PO BID stomach 30 days #60 caps 05/03/23 blood-glucose sensor (Dexcom G6 Sensor device) #9 ea 06/10/23 diphenoxylate-atropine 2.5 mg-0.025 mg tablet (Lomotil) 1 tab PO TID PRN diarrhea 06/21/23 blood-glucose transmitter (Dexcom G6 Transmitter device) #1 ea 07/09/23 insulin pump cart,automated,BT (Omnipod 5 G6 Pods (Gen 5) subcutaneous cartridge) #45 ea 07/14/23 atorvastatin 80 mg tablet 80 mg PO QHS CHOLESTEROL LOWERING #90 tabs 07/22/23 buprenorphine HCl 150 mcg buccal film 150 mcg buccal Q12H pain 08/04/23 cholecalciferol (vitamin D3) 50 mcg (2,000 unit) capsule 100 mcg (2 x 50 mcg (2,000 unit)) PO DAILY #60 caps 08/12/23 aspirin 81 mg tablet,delayed release 81 mg PO DAILY [facility] 08/16/23 cholecalciferol (vitamin D3) 1,250 mcg (50,000 unit) capsule 1,250 mcg PO QWEEK supplement #4 caps 08/18/23 metoprolol tartrate 25 mg tablet 75 mg PO BID bp 09/18/23 sumatriptan succinate 25 mg tablet (Imitrex) See Rx Instructions PO .COMPLEX #10 tabs 09/20/23 Bipap Mask and Tubing #1 ea 09/22/23 benzonatate 200 mg capsule PO 09/22/23 cholestyramine (with sugar) 4 gram powder for susp in a packet 1 ea PO BID 09/22/23 dapagliflozin propanediol 10 mg tablet (Farxiga) 10 mg PO DAILY 09/22/23 fluticasone propionate 50 mcg/actuation nasal spray,suspension (Flonase Allergy Relief) 2 spray intranasal DAILY #16 grams 09/22/23 melatonin 5 mg capsule mg PO QHS 09/22/23 Arthritis Pain Compound 0 click topical TID ##0 09/25/23 acetaminophen 500 mg tablet 1,000 mg (2 x 500 mg) PO Q8 #0 tabs 09/25/23 duloxetine 30 mg capsule,delayed release 30 mg PO QHS #0 caps 09/25/23 duloxetine 60 mg capsule,delayed release 60 mg PO DAILY #0 caps 09/25/23 pregabalin 50 mg capsule 50 mg PO DAILY #0 caps 09/25/23 pregabalin 75 mg capsule 75 mg PO QHS #0 caps 09/25/23 valacyclovir 500 mg tablet 1,000 mg (2 x 500 mg) PO DAILY HSV 5 days #10 tabs 09/25/23 Hospital Course Summary of Care Provided Minutes Spent on Discharge: 35 Hospital Course: 63-year-old female history of type 1 diabetes with insulin pump, hypertension, ulcerative colitis with colectomy and high output ostomy receiving IV fluids twice weekly, CKD stage III, mood disorder, chronic pain who presented to [facility] ED 09/22/2023 due to fatigue and weakness after being discharged several days prior for hospitalization for similar reason. Patient initially had slightly elevated troponin and it was felt there may be a component of fluid overload however this resolved with IV fluids. Given patient's fatigue and dizzy feeling broad workup and no acute problems identified however looked through patient's medication list and her kidney function and discussed tapering Lyrica and Cymbalta slightly as these may be too high doses for her kidney function and may be causing these side effects. Also given her recent headaches and stomach upset her donepezil has been held. Patient did improve, on day of discharge main complaint was sciatica on the left side which is worsening of her chronic pain however feels the beds have played a significant part of this. Tylenol was scheduled and topical arthritis cream started. Additionally patient has had an outbreak of herpes and was supposed to start Valtrex on an outpatient basis so this was started for her. No other new or acute complaints. Discharge instructions as followed: -Due to herpes outbreak you have been started on Valtrex, you need to take 1 g once daily for 5 days -It will be important to continue BiPAP -Continue using insulin pump and follow-up with your escrow officer as previously scheduled -Continue using your home buccal buprenorphine -Due to your headaches your donepezil has been discontinued, please follow up with your neurologist for any further medication recommendations -Due to your kidney function your Lyrica has been decreased to 50 mg during the day continue 75 mg at night and your Cymbalta has been decreased to 60 mg during the day and 30 mg at night. These can likely be down titrated slightly more if you continue to have problems with fatigue or dizziness as you have decreased clearance with your kidneys -Continue fluid infusions twice weekly, you indicated that you get 2 L each time and this can be continued through your port Physical Exam Narrative General: Alert, oriented, no apparent distress HEENT: Atraumatic, normocephalic Eyes: Anicteric, normal conjunctiva, extraocular movements intact Respiratory: Clear to auscultation bilaterally, normal respiratory effort Cardiovascular: Regular rate GI: Soft, nontender, nondistended Extremities: No edema Musculoskeletal: Moving all extremities Neuro: No overt focal neurological deficits Skin: No rashes appreciated Psych: Cooperative Weight / BMI Weight Weight: 93.9 kg Body Mass Index (BMI) 32.4 ABG / Lab / Microbiology Data 09/25/23 05:52 09/25/23 05:52 Laboratory: Laboratory Results - last 24 hr 09/24/23 12:48: POC Glucose 165 H 09/24/23 14:47: POC Glucose 214 H 09/24/23 17:20: POC Glucose 154 H 09/25/23 00:30: POC Glucose 159 H 09/25/23 05:52: WBC 7.4, RBC 4.48, Hgb 12.2, Hct 39.3, MCV 87.7, MCH 27.2, MCHC 31.0 L, RDW Std Deviation 53.1 H, RDW Coeff of Jan 17.0 H, Plt Count 162, MPV 11.8, Immature Gran % (Auto) 1.500 H, Neut % (Auto) 55.8, Lymph % (Auto) 30.6, [place] % (Auto) 7.8, Eos % (Auto) 3.5, Baso % (Auto) 0.8, Absolute Neuts (auto) 4.1, Absolute Lymphs (auto) 2.26, Nucleated RBC % 0, Sodium 141, Potassium 4.3, Chloride 111 H, Carbon Dioxide 26.0, Anion Gap 4 L, BUN 46 H, Creatinine 1.79 H, Estim Creat Clear Calc 36.86, Est GFR (MDRD) Af Amer 37 L, Est GFR (MDRD) Non-Af 30 L, BUN/Creatinine Ratio 25.7 H, Glucose 108 H, Calcium 8.6, Total Bilirubin 0.50, AST 25, ALT 25, Alkaline Phosphatase 150 H, Total Protein 6.0 L, Albumin 2.8 L, Globulin 3.2, Albumin/Globulin Ratio 0.9 09/25/23 06:19: POC Glucose 84 09/25/23 11:34: POC Glucose 231 H Microbiology: Microbiology 09/23/23 22:00 Urine, Clean Catch Urine Culture - Final Proteus sp. D/C Instructions Discharge Diet: Carb Control Diet Meaningful Use Info Meaningful Use Meaningful Use Diagnoses (Choose all that apply): None applicable Ischemic Stroke Statin Dosing Therapy Reference: STATIN DOSE THERAPY REFERENCE: * Patients > 75 years receive moderate or high dose statin therapy. * Patients 75 years or YOUNGER should receive HIGH intensity statin dose unless contraindicated. You will be required to document reason for non-treatment if statin daily dose does not meet guidelines. HIGH DOSE STATIN THERAPY DAILY Atorvastatin > than or = to 40 mg Rosuvastatin > than or = to 20 mg Amlodipine + Atorvastatin > than or = to 2.5/40 mg Ezetimibe + Simvastatin 10/80 mg Simvastatin 80mg Discharge Plan Admission Admit Date/Time: 09/22/23 21:28 Primary Reason for Your Visit: Dizziness and fatigue Attending Provider: Terrie Olson Primary Care Provider: Mala Mcgrath Consulting Providers: Michael Ramírez Instructions Patient Instructions: ED Fall Prevention Additional Instructions / Restrictions: DISCHARGE INSTRUCTIONS PLEASE READ *Please take this with you to your next doctors appointment* -Due to herpes outbreak you have been started on Valtrex, you need to take 1 g once daily for 5 days -Will be important to continue BiPAP -Continue using insulin pump and follow-up with her escrow officer as previously scheduled -Continue using your home buccal buprenorphine -Due to your headaches your donepezil has been discontinued -Due to your kidney function your Lyrica has been decreased to 50 mg during the day continue 75 mg at night and your Cymbalta has been decreased to 60 mg during the day and 30 mg at night. These can likely be down titrated slightly more if you continue to have problems with fatigue or dizziness as you have decreased clearance with your kidneys -Continue fluid infusions twice weekly, you indicated that you get 2 L each time and this can be continued through your port -Please call your primary care provider's office upon discharge to schedule a hospital follow up within 1 week. -For any concerning signs or symptoms please call 911 or proceed to the nearest emergency department Discharge Orders/Prescriptions Prescriptions: New Arthritis Pain Compound 0 click topical TID Qty: 0 0RF acetaminophen 500 mg Tablet 1,000 mg PO Q8 Qty: 0 0RF duloxetine 30 mg Capsule,Delayed Release(Dr/Ec) 30 mg PO QHS Qty: 0 0RF duloxetine 60 mg Capsule,Delayed Release(Dr/Ec) 60 mg PO DAILY Qty: 0 0RF pregabalin 50 mg Capsule 50 mg PO DAILY Qty: 0 0RF pregabalin 75 mg Capsule 75 mg PO QHS Qty: 0 0RF Continued nitroglycerin 0.4 mg tablet, sublingual 0.4 mg sublingual Q5-15M PRN (Reason: chest pain) Qty: 25 6RF Rx Instructions: do not exceed 3 doses per episode (DME) Handicap Placard See Rx Instructions .ROUTE .MEDSUPPLY Qty: 1 0RF Rx Instructions: As directed, length of time 3 years (DME) True Metrix Glucose Test Strip Strip See Rx Instructions .Route Qty: 100 5RF Rx Instructions: TID cholecalciferol (vitamin D3) 1,250 mcg (50,000 unit) capsule 1,250 mcg PO QWEEK Qty: 4 4RF cyclobenzaprine 10 mg tablet 10 mg PO TID PRN (Reason: muscle spasm) Qty: 30 0RF cholecalciferol (vitamin D3) 50 mcg (2,000 unit) capsule 100 mcg PO DAILY Qty: 60 5RF (DME) Bipap Mask and Tubing See Rx Instructions .Route .MEDSUPPLY Qty: 1 3RF Rx Instructions: As directed fluticasone propionate [Flonase Allergy Relief] 50 mcg/actuation spray,suspension 2 spray intranasal DAILY Qty: 16 3RF Rx Instructions: administer into each nostril aspirin 81 mg tablet,delayed release (DR/EC) 81 mg PO DAILY (DME) True Metrix Glucose Test Strip Strip See Rx Instructions .Route Rx Instructions: 3 times per day No longer (DME) Dexcom G6 Insurance Healthcare Consultant Misc See Rx Instructions .ROUTE .MEDSUPPLY Rx Instructions: As directed (DME) pen needle, diabetic [BD Ultra-Fine Key Pen Needle] 32 gauge x 5/32 needle See Rx Instructions .ROUTE .MEDSUPPLY Rx Instructions: takes 5 injection/day (DME) Wheel Chair See Rx Instructions Rx Instructions: As directed trazodone 50 mg tablet 50 mg PO QHS diphenoxylate-atropine [Lomotil] 2.5-0.025 mg tablet 1 tab PO TID PRN (Reason: diarrhea) buprenorphine HCl 150 mcg film 150 mcg buccal Q12H metoprolol tartrate 25 mg tablet 75 mg PO BID Rx Instructions: 25 mg orally take with a 50 mg tablet twice a day to = 75 mg twice a day; sumatriptan succinate [Imitrex] 25 mg tablet See Rx Instructions .ROUTE .COMPLEX Qty: 10 0RF Rx Instructions: take 1 tab at onset of headache; if no relief may repeat 1 tab after at least 2 hrs; max = 4 tabs/24 hr lamotrigine 200 mg tablet 100 mg PO DAILY albuterol sulfate 90 mcg/actuation HFA aerosol inhaler 2 puff INHALATION BID PRN (Reason: SOB) dicyclomine 10 mg Capsule 10 mg PO BID 30 Days Qty: 60 0RF benzonatate 200 mg capsule PO cholestyramine (with sugar) 4 gram powder in packet 1 ea PO BID dapagliflozin propanediol [Farxiga] 10 mg tablet 10 mg PO DAILY melatonin 5 mg capsule PO QHS (DME) ostomy supplies See Rx Instructions .Route .MEDSUPPLY Qty: 1 0RF Rx Instructions: Pouches Barrier rings Adhesive remover Skin Prep Barrier powder isosorbide dinitrate 30 mg tablet 30 mg PO BID Qty: 60 11RF (DME) Juanita Cohesive Seal 2 diameter See Rx Instructions .Route .MEDSUPPLY Qty: 15 7RF Rx Instructions: As directed (DME) Esenta Sting Free Adhesive Remover Wipe - See Rx Instructions .Route .MEDSUPPLY Qty: 15 7RF Rx Instructions: As directed ([facility] [place]) Esenta Sting Free Skin Barrier Burnside, 50 mL - See Rx Instructions .Route .MEDSUPPLY Qty: 15 7RF Rx Instructions: As directed ([facility] [place]) Esteem + Convex One-Piece Drainable Pre-Cut Pouch w/visiClose, Durahesive, 12 panel Opaque, 1 03/15 See Rx Instructions .Route .MEDSUPPLY Qty: 15 7RF Rx Instructions: As directed clopidogrel 75 mg tablet 75 mg PO DAILY Qty: 90 3RF Rx Instructions: TAKE 1 TABLET BY MOUTH EVERY DAY Humalog KwikPen Insulin 200 unit/mL (3 mL) insulin pen 160 unit subcut DAILY Qty: 72 3RF Patient Comments: per pt pump broke 3 days ago Rx Instructions: 2.05 units/hr from 12 AM to 6:30 AM 2.15 units/hr from 6:30 AM to 12 AM pantoprazole [Protonix] 40 mg tablet,delayed release (DR/EC) 40 mg PO BID Qty: 60 11RF (DME) Dexcom G6 Sensor Device See Rx Instructions .ROUTE .MEDSUPPLY Qty: 9 1RF Rx Instructions: 1 sensor every 10 days ([facility] [place]) Dexcom G6 Transmitter Device See Rx Instructions .ROUTE .MEDSUPPLY Qty: 1 3RF Rx Instructions: 1 transmitter every 90 days ([facility] [place]) Omnipod 5 G6 Pods (Gen 5) Cartridge See Rx Instructions .Route Qty: 45 1RF Rx Instructions: 1 pod q 48 hours atorvastatin 80 mg tablet 80 mg PO QHS Qty: 90 3RF Patient Comments: cholesterol Changed valacyclovir 500 mg tablet 1,000 mg PO DAILY 5 Days Qty: 10 0RF Discontinued duloxetine 30 mg capsule,delayed release(DR/EC) 90 mg PO BID Patient Comments: per pt changed to 60 mg BID donepezil 5 mg tablet 5 mg PO QHS Qty: 30 0RF donepezil 10 mg tablet 10 mg PO QHS Qty: 30 5RF Rx Instructions: Begin after completing one month of treatment of donepezil 5mg nightly acetaminophen 325 mg Tablet 1,000 mg PO Q8 PRN (Reason: Pain 1-10 Or Fever>100.7) Qty: 0 0RF prednisone 20 mg Tablet 40 mg PO BREAKFAST Rx Instructions: stop taking 09/23/2023 pregabalin 75 mg capsule 75 mg PO BID Qty: 56 0RF Referrals / Follow Up: Mala Mcgrath MD [Primary Care Provider] - Within 1 Week Disposition Disposition (needs filled in before D/C Order can be placed): Longterm Facility Charges/Coding Visit Charges Inpatient E&M: 38748 Disch Hosp >30min
--- NOTE | 2023-09-25 13:50 | NURSING ---
Pt to be discharged to [facility]. Final count of pt's home buprenorphine patch was 19. Counted by this RN and primary RN Shun. Documentation for sent back to inpt pharmacy and they were notified via telephone call by this RN. Pt significant other to receive pt's home buprenorphine patches, per primary RN Shun. Laurent MOTA
--- NOTE | 2023-09-25 14:00 | NURSING ---
This RN counted pt's controlled home medication, Marylucita with military cook, Kirti Simon. The 19 patches were returned to the pt's significant other, Mallorie mills on pt's contact list.
--- NOTE | 2023-09-25 14:19 | NURSING ---
This RN called and gave report to SVETLANA Mcgrath at [facility].
== END 2023-09-25 15:02 | disposition skilled nursing facility (03) | DRG 947 ==
LOC: ED 21:04 → PCU 21:34
PROVIDERS: Admitting Provider Internal Medicine; Emergency Provider Emergency Medicine; PCP Internal Medicine; Visit Provider Internal Medicine
DX: R53.83 Other fatigue (principal); I50.31 Acute diastolic (congestive) heart failure; I13.0 Hypertensive heart and chronic kidney disease with heart failure and stage 1 through stage 4 chronic kidney disease, or unspecified chronic kidney disease; E11.42 Type 2 diabetes mellitus with diabetic polyneuropathy; E11.22 Type 2 diabetes mellitus with diabetic chronic kidney disease; N18.30 Chronic kidney disease, stage 3 unspecified; J44.9 Chronic obstructive pulmonary disease, unspecified; F03.90 Unspecified dementia, unspecified severity, without behavioral disturbance, psychotic disturbance, mood disturbance, and anxiety; Z68.32 Body mass index [BMI] 32.0-32.9, adult; Z93.2 Ileostomy status; E11.65 Type 2 diabetes mellitus with hyperglycemia; Z79.4 Long term (current) use of insulin; M19.90 Unspecified osteoarthritis, unspecified site; G43.909 Migraine, unspecified, not intractable, without status migrainosus; E78.00 Pure hypercholesterolemia, unspecified; I25.10 Atherosclerotic heart disease of native coronary artery without angina pectoris; G47.33 Obstructive sleep apnea (adult) (pediatric); K21.9 Gastro-esophageal reflux disease without esophagitis; M54.32 Sciatica, left side; E83.42 Hypomagnesemia; M47.816 Spondylosis without myelopathy or radiculopathy, lumbar region; K31.84 Gastroparesis; A60.00 Herpesviral infection of urogenital system, unspecified; Z79.891 Long term (current) use of opiate analgesic; Z79.02 Long term (current) use of antithrombotics/antiplatelets; R53.1 Weakness; Z90.49 Acquired absence of other specified parts of digestive tract; Z95.5 Presence of coronary angioplasty implant and graft; Z87.891 Personal history of nicotine dependence; G89.4 Chronic pain syndrome; E66.9 Obesity, unspecified; Z79.84 Long term (current) use of oral hypoglycemic drugs; B00.9 Herpesviral infection, unspecified; Z96.41 Presence of insulin pump (external) (internal); Z95.1 Presence of aortocoronary bypass graft; Z79.899 Other long term (current) drug therapy; Z90.710 Acquired absence of both cervix and uterus; Z99.81 Dependence on supplemental oxygen; Z79.82 Long term (current) use of aspirin; Z96.642 Presence of left artificial hip joint; R79.89 Other specified abnormal findings of blood chemistry; R29.6 Repeated falls; Z91.199 Patient's noncompliance with other medical treatment and regimen due to unspecified reason
CPT/HCPCS: 36415; 70450; 71045; 74176; 78452; 80053; 81001; 82803; 82962; 83690; 83735; 83880; 84100; 84443; 84484; 85025; 87086; 87088; 93005; 93017; 93306; 94002; 94003; 97162; 97166; 97530; 97535; 97802; 99285; A9500; J7030; J7120; P9047; A4216; J1940; J2405; J2785

== ENCOUNTER 2023-09-28 11:14 | Outpatient (CLI) | payer MEDICARE, MEDICAID, SELFPAY ==
[2023-02-18 12:34] VITALS: BMI 30.9
[2023-09-28] MEDS: 0.9% NaCl Peripheral Flush Adult/Peds IV ×2 (11:42→14:10)
[2023-09-28] MEDS: Lactated Ringers 1,000 ML 999 ML IV ×2 (11:57→12:57)
[2023-09-28 11:58] VITALS: BP 131/58; PULSE 61; RESP 16; TEMP 36.1; O2SAT 95; BMI 32.7
[2023-09-28 13:22] LABS: Hematocrit 34.2 % (37-47); Hemoglobin 10.7 g/dL (12.0-15.0); Mean Corp Hgb Conc 31.3 g/dL (32-36); Mean Corpuscular Hgb 27.3 pg (27.0-32.0); Mean Corpuscular Volume 87.2 fL (81-99); Mean Platelet Vol. 12.2 fl (6.2-12.0); Platelet Count 160 K/mm3 (150-450); RBC Distribution Width SD 53.8 fl (35.1-43.9); Red Blood Count 3.92 M/mm3 (4.2-5.4); White Blood Count 7.5 K/mm3 (4.4-11.0)
[2023-09-28 13:46] LABS: Vitamin D,25 Hydroxy 38.4 ng/mL
[2023-09-28 13:47] LABS: Albumin, Serum 2.7 g/dL (3.2-5.0); BUN 31 mg/dL (7-18); BUN/Creat Ratio 17.9 RATIO (10-20); Chloride 111 mmol/L (98-107); Creatinine, Serum 1.73 mg/dL (0.55-1.02); EST Glomerular Filtration Rate 31 mL/min (>60); Est Glom Filt Rate - Afr Amer 38 mL/min (>60); Estimated Creatinine Clearance 38.32 ml/min; Glucose 267 mg/dL (74-106); Phosphorus 3.4 mg/dL (2.5-4.9); Potassium 4.6 mmol/L (3.5-5.1); Sodium Level 140 mmol/L (136-145)
[2023-09-28 14:11] VITALS: BP 151/77; PULSE 68; RESP 16; TEMP 35.7; O2SAT 98
[2023-09-28 14:38] LABS: Protein, Urine (Random) 165.9 mg/dL (<11.9); Protein:Creat Ratio 694 mg/g CRE (0-200)
== END 2023-09-28 23:59 | disposition home or self-care (01) ==
LOC: MEDOUTP 11:14
PROVIDERS: Nurse Practitioner Adult Health; PCP Internal Medicine; Referring Provider Internal Medicine Gastroenterology; Visit Provider Internal Medicine Gastroenterology
DX: N18.32 Chronic kidney disease, stage 3b (principal); E86.0 Dehydration; R19.8 Other specified symptoms and signs involving the digestive system and abdomen
CPT/HCPCS: 96360; 96361; 36415; 80069; 82306; 82570; 83970; 84156; 85027; J7120; A4216

== ENCOUNTER 2023-10-01 11:38 | Outpatient (CLI) | payer MEDICARE, MEDICAID, SELFPAY ==
[2023-02-18 12:34] VITALS: BMI 30.9
[2023-10-01] MEDS: Lactated Ringers 1,000 ML 999 ML IV ×2 (11:52→12:57)
[2023-10-01 11:54] VITALS: BP 145/70; PULSE 62; RESP 16; TEMP 35.8; O2SAT 93; BMI 32.7
[2023-10-01] MEDS: 0.9% NaCl Peripheral Flush Adult/Peds IV (14:10)
[2023-10-01 14:16] VITALS: BP 152/66; PULSE 70; RESP 16; TEMP 36; O2SAT 97
== END 2023-10-01 23:59 | disposition home or self-care (01) ==
LOC: MEDOUTP 11:38
PROVIDERS: PCP Internal Medicine; Referring Provider Internal Medicine Gastroenterology; Visit Provider Internal Medicine Gastroenterology
DX: E86.0 Dehydration (principal); R19.8 Other specified symptoms and signs involving the digestive system and abdomen
CPT/HCPCS: 96360; 96361; J7120; A4216

== ENCOUNTER 2023-10-05 11:54 | Outpatient (CLI) | payer MEDICARE, MEDICAID, SELFPAY ==
[2023-02-18 12:34] VITALS: BMI 30.9
[2023-10-05] MEDS: Lactated Ringers 1,000 ML 999 ML IV ×2 (12:07→13:15)
[2023-10-05 12:11] VITALS: BP 133/64; PULSE 70; RESP 16; TEMP 36.1; O2SAT 96; BMI 33.2
[2023-10-05] MEDS: 0.9% NaCl Peripheral Flush Adult/Peds IV ×2 (13:14→14:30)
[2023-10-05 14:33] VITALS: BP 154/68; PULSE 72; RESP 16; TEMP 35.8; O2SAT 95
== END 2023-10-05 23:59 | disposition home or self-care (01) ==
LOC: MEDOUTP 11:54
PROVIDERS: PCP Internal Medicine; Referring Provider Internal Medicine Gastroenterology; Visit Provider Internal Medicine Gastroenterology
DX: E86.0 Dehydration (principal); R19.8 Other specified symptoms and signs involving the digestive system and abdomen
CPT/HCPCS: 96360; 96361; J7120; A4216

== ENCOUNTER 2023-10-08 11:45 | Outpatient (CLI) | payer MEDICARE, MEDICAID, SELFPAY ==
[2023-02-18 12:34] VITALS: BMI 30.9
[2023-10-08] MEDS: 0.9% NaCl Peripheral Flush Adult/Peds IV ×2 (11:56→14:12)
[2023-10-08] MEDS: Lactated Ringers 1,000 ML 999 ML IV ×2 (11:58→13:03)
[2023-10-08 12:01] VITALS: BP 138/69; PULSE 80; RESP 16; TEMP 35.6; O2SAT 94
[2023-10-08 14:15] VITALS: BP 145/65; PULSE 81; RESP 16; TEMP 36; O2SAT 98
== END 2023-10-08 23:59 | disposition home or self-care (01) ==
LOC: MEDOUTP 11:45
PROVIDERS: PCP Internal Medicine; Referring Provider Internal Medicine Gastroenterology; Visit Provider Internal Medicine Gastroenterology
DX: E86.0 Dehydration (principal); R19.8 Other specified symptoms and signs involving the digestive system and abdomen
CPT/HCPCS: 96360; 96361; J7120; A4216

== ENCOUNTER 2023-10-12 11:35 | Outpatient (CLI) | payer MEDICARE, MEDICAID, SELFPAY ==
[2023-02-18 12:34] VITALS: BMI 30.9
[2023-10-12] MEDS: Lactated Ringers 1,000 ML 999 ML IV ×2 (11:59→13:06)
[2023-10-12 12:02] VITALS: BP 140/61; PULSE 72; RESP 16; TEMP 36.7; O2SAT 96; BMI 33.6
[2023-10-12] MEDS: 0.9% NaCl Peripheral Flush Adult/Peds IV (14:21)
[2023-10-12 14:22] VITALS: BP 174/74; PULSE 79; RESP 16; TEMP 36.8; O2SAT 95
== END 2023-10-12 23:59 | disposition home or self-care (01) ==
LOC: MEDOUTP 11:35
PROVIDERS: PCP Internal Medicine; Referring Provider Internal Medicine Gastroenterology; Visit Provider Internal Medicine Gastroenterology
DX: E86.0 Dehydration (principal); R19.8 Other specified symptoms and signs involving the digestive system and abdomen
CPT/HCPCS: 96360; 96361; J7120; A4216

== ENCOUNTER 2023-10-15 10:44 | Outpatient (CLI) | payer MEDICARE, MEDICAID, SELFPAY ==
[2023-02-18 12:34] VITALS: BMI 30.9
[2023-10-15] MEDS: Lactated Ringers 1,000 ML 999 ML IV ×2 (10:59→12:12)
[2023-10-15 11:02] VITALS: BP 143/70; PULSE 77; RESP 16; TEMP 35.8; O2SAT 93; BMI 33.2
== END 2023-10-15 23:59 | disposition home or self-care (01) ==
LOC: MEDOUTP 10:45
PROVIDERS: PCP Internal Medicine; Referring Provider Internal Medicine Gastroenterology; Visit Provider Internal Medicine Gastroenterology
DX: E86.0 Dehydration (principal); R19.8 Other specified symptoms and signs involving the digestive system and abdomen
CPT/HCPCS: 96360; 96361; J7120; A4216

== ENCOUNTER 2023-10-19 11:35 | Outpatient (CLI) | payer MEDICARE, MEDICAID, SELFPAY ==
[2023-02-18 12:34] VITALS: BMI 30.9
[2023-10-19] MEDS: Lactated Ringers 1,000 ML 999 ML IV ×2 (11:55→13:05)
[2023-10-19 11:57] VITALS: BP 135/60; PULSE 68; RESP 16; TEMP 35.9; O2SAT 96; BMI 33.5
[2023-10-19 14:16] VITALS: BP 156/66; PULSE 72; RESP 16; TEMP 35.9; O2SAT 95
== END 2023-10-19 23:59 | disposition home or self-care (01) ==
LOC: MEDOUTP 11:35
PROVIDERS: PCP Internal Medicine; Referring Provider Internal Medicine Gastroenterology; Visit Provider Internal Medicine Gastroenterology
DX: E86.0 Dehydration (principal); R19.8 Other specified symptoms and signs involving the digestive system and abdomen
CPT/HCPCS: 96360; 96361; J7120; A4216

== ENCOUNTER → 2023-10-21 | Outpatient (CLI) | payer MEDICARE, MEDICAID, SELFPAY ==
[2023-02-18 12:34] VITALS: BMI 30.9
--- NOTE | 2023-10-21 15:20 | VDLE_ITS ---
Reason For Study: Left leg swelling RIGHT LEFT CFV is compressible, spontaneous, phasic, GSV is normal. competent and demonstrates normal CFV is compressible, spontaneous, phasic, augmentation. competent, and demonstrates normal Procedure augmentation. This is a venous duplex using B-mode, color FV is compressible, spontaneous, phasic, flow and spectral Doppler. competent and demonstrates normal Exam performed in department. augmentation. A preliminary report was called and/or faxed POP V is compressible, spontaneous, phasic, to Royce JONES. competent and demonstrates normal augmentation. T/P Trunk is compressible. PTV is compressible. LT PerV is compressible. VL/Venous Duplex US, Unilateral Interpretation Summary Deep veins of the left lower extremity are patent and compressible segmentally. There is no evidence of left lower extremity deep vein thrombosis. The left great saphenous vein mony ears patent and compressible segmentally. Ordering Physician: Royce Delacruz Referring Physician: Mala Mcgrath Performed By: Amie Webster RVT
== END | disposition home or self-care (01) ==
LOC: CVS 15:17
PROVIDERS: PCP Internal Medicine; Referring Provider Physician Assistant; Visit Provider Physician Assistant
DX: M79.89 Other specified soft tissue disorders (principal)
CPT/HCPCS: 93971

== ENCOUNTER 2023-10-22 10:52 | Outpatient (CLI) | payer MEDICARE, MEDICAID, SELFPAY ==
[2023-02-18 12:34] VITALS: BMI 30.9
[2023-10-22] MEDS: Lactated Ringers 1,000 ML 999 ML IV ×2 (11:24→12:30)
[2023-10-22 11:25] VITALS: BP 163/63; PULSE 70; RESP 16; TEMP 36.1; O2SAT 96
[2023-10-22 13:40] VITALS: BP 170/76; PULSE 74; RESP 16; O2SAT 96
== END 2023-10-22 23:59 | disposition home or self-care (01) ==
LOC: MEDOUTP 10:53
PROVIDERS: PCP Internal Medicine; Referring Provider Internal Medicine Gastroenterology; Visit Provider Internal Medicine Gastroenterology
DX: E86.0 Dehydration (principal); R19.8 Other specified symptoms and signs involving the digestive system and abdomen
CPT/HCPCS: 96360; 96361; J7120; A4216

== ENCOUNTER 2023-10-26 11:30 | Outpatient (CLI) | payer MEDICARE, MEDICAID, SELFPAY ==
[2023-02-18 12:34] VITALS: BMI 30.9
[2023-10-26] MEDS: Lactated Ringers 1,000 ML 999 ML IV ×2 (12:02→13:13)
[2023-10-26 12:04] VITALS: BP 154/69; PULSE 78; RESP 16; TEMP 36.1; O2SAT 93; BMI 33.5
[2023-10-26 14:29] VITALS: BP 150/69; PULSE 80; RESP 16; O2SAT 97
[2023-10-26] MEDS: 0.9% NaCl Peripheral Flush Adult/Peds IV (14:29)
== END 2023-10-26 23:59 | disposition home or self-care (01) ==
LOC: MEDOUTP 11:30
PROVIDERS: PCP Internal Medicine; Referring Provider Internal Medicine Gastroenterology; Visit Provider Internal Medicine Gastroenterology
DX: E86.0 Dehydration (principal); R19.8 Other specified symptoms and signs involving the digestive system and abdomen
CPT/HCPCS: 96360; 96361; J7120; A4216

== ENCOUNTER 2023-10-29 10:40 | Outpatient (CLI) | payer MEDICARE, MEDICAID, SELFPAY ==
[2023-10-27 12:02] VITALS: BMI 30.9
[2023-10-29 10:45] VITALS: PULSE 53; RESP 16; TEMP 36.2; O2SAT 98
[2023-10-29] MEDS: Lactated Ringers 1,000 ML 999 ML IV ×2 (10:56→11:59)
[2023-10-29] MEDS: 0.9% NaCl Peripheral Flush Adult/Peds IV ×2 (10:57→13:21)
== END 2023-10-29 23:59 | disposition home or self-care (01) ==
PROVIDERS: PCP Internal Medicine; Referring Provider Internal Medicine Gastroenterology; Visit Provider Internal Medicine Gastroenterology
DX: E86.0 Dehydration (principal); R19.8 Other specified symptoms and signs involving the digestive system and abdomen
CPT/HCPCS: 96360; 96361; 36591; J7120; A4216

== ENCOUNTER 2023-11-02 11:46 | Outpatient (CLI) | payer MEDICARE, MEDICAID, SELFPAY ==
[2023-10-27 12:02] VITALS: BMI 30.9
[2023-11-02] MEDS: Lactated Ringers 1,000 ML 999 ML IV ×2 (12:05→13:16)
[2023-11-02 12:07] VITALS: BP 115/57; PULSE 66; RESP 16; TEMP 35.9; O2SAT 95; BMI 33.2
[2023-11-02] MEDS: 0.9% NaCl Peripheral Flush Adult/Peds IV (14:31)
[2023-11-02 14:36] VITALS: BP 143/66; PULSE 73; RESP 16; TEMP 36.3; O2SAT 94
== END 2023-11-02 23:59 | disposition home or self-care (01) ==
LOC: MEDOUTP 11:46
PROVIDERS: PCP Internal Medicine; Referring Provider Internal Medicine Gastroenterology; Visit Provider Internal Medicine Gastroenterology
DX: E86.0 Dehydration (principal); R19.8 Other specified symptoms and signs involving the digestive system and abdomen
CPT/HCPCS: 96360; 96361; J7120; A4216

== ENCOUNTER 2023-11-05 09:51 | Outpatient (CLI) | payer MEDICARE, MEDICAID, SELFPAY ==
[2023-10-27 12:02] VITALS: BMI 30.9
[2023-11-05 10:13] VITALS: BP 132/61; PULSE 67; RESP 16; TEMP 36.4; O2SAT 94; BMI 32.8
[2023-11-05] MEDS: Lactated Ringers 1,000 ML 999 ML IV ×2 (10:22→11:28)
[2023-11-05] MEDS: 0.9% NaCl Peripheral Flush Adult/Peds IV (12:41)
[2023-11-05 12:43] VITALS: BP 160/65; PULSE 68; RESP 16; O2SAT 95
== END 2023-11-05 23:59 | disposition home or self-care (01) ==
LOC: MEDOUTP 09:51
PROVIDERS: PCP Internal Medicine; Referring Provider Internal Medicine Gastroenterology; Visit Provider Internal Medicine Gastroenterology
DX: E86.0 Dehydration (principal); R19.8 Other specified symptoms and signs involving the digestive system and abdomen
CPT/HCPCS: 96360; 96361; J7120; A4216

== ENCOUNTER 2023-11-09 11:49 | Outpatient (CLI) | payer MEDICARE, MEDICAID, SELFPAY ==
[2023-10-27 12:02] VITALS: BMI 30.9
[2023-11-09] MEDS: Lactated Ringers 1,000 ML 999 ML IV ×2 (12:05→13:17)
[2023-11-09] MEDS: 0.9% NaCl Peripheral Flush Adult/Peds IV ×2 (12:11→14:29)
[2023-11-09 12:12] VITALS: BP 159/67; PULSE 73; RESP 16; TEMP 36
[2023-11-09 14:33] VITALS: BP 157/64; PULSE 70; RESP 16; TEMP 35.7; O2SAT 96
== END 2023-11-09 23:59 | disposition home or self-care (01) ==
LOC: MEDOUTP 11:49
PROVIDERS: PCP Internal Medicine; Referring Provider Internal Medicine Gastroenterology; Visit Provider Internal Medicine Gastroenterology
DX: E86.0 Dehydration (principal); R19.8 Other specified symptoms and signs involving the digestive system and abdomen
CPT/HCPCS: 96365; 96366 ×2; J7120; A4216

== ENCOUNTER 2023-11-12 09:56 | Outpatient (CLI) | payer MEDICARE, MEDICAID, SELFPAY ==
[2023-10-27 12:02] VITALS: BMI 30.9
[2023-11-12] MEDS: Lactated Ringers 1,000 ML 999 ML IV ×2 (10:10→11:22)
[2023-11-12 10:12] VITALS: BP 115/88; PULSE 73; RESP 16; TEMP 36.3; O2SAT 96; BMI 34.0
[2023-11-12] MEDS: 0.9% NaCl Peripheral Flush Adult/Peds IV (12:30)
[2023-11-12 12:38] VITALS: BP 155/62; PULSE 61; RESP 16; TEMP 36.4; O2SAT 98
== END 2023-11-12 23:59 | disposition home or self-care (01) ==
LOC: MEDOUTP 09:56
PROVIDERS: PCP Internal Medicine; Referring Provider Internal Medicine Gastroenterology; Visit Provider Internal Medicine Gastroenterology
DX: E86.0 Dehydration (principal); R19.8 Other specified symptoms and signs involving the digestive system and abdomen
CPT/HCPCS: 96365; 96366; J7120; A4216

== ENCOUNTER 2023-11-16 12:14 | Outpatient (CLI) | payer MEDICARE, MEDICAID, SELFPAY ==
[2023-10-27 12:02] VITALS: BMI 30.9
[2023-11-16] MEDS: Lactated Ringers 1,000 ML 999 ML IV ×2 (12:27→13:28)
[2023-11-16 12:29] VITALS: BP 155/54; PULSE 65; RESP 16; TEMP 36.4; O2SAT 94; BMI 33.6
[2023-11-16] MEDS: 0.9% NaCl Peripheral Flush Adult/Peds IV (14:37)
[2023-11-16 14:40] VITALS: BP 154/59; PULSE 70; RESP 16; TEMP 36.4; O2SAT 94
== END 2023-11-16 23:59 | disposition home or self-care (01) ==
LOC: MEDOUTP 12:15
PROVIDERS: PCP Internal Medicine; Referring Provider Internal Medicine Gastroenterology; Visit Provider Internal Medicine Gastroenterology
DX: E86.0 Dehydration (principal); R19.8 Other specified symptoms and signs involving the digestive system and abdomen
CPT/HCPCS: 96360; 96361; J7120; A4216

== ENCOUNTER 2023-11-19 10:08 | Outpatient (CLI) | payer MEDICARE, MEDICAID, SELFPAY ==
[2023-10-27 12:02] VITALS: BMI 30.9
[2023-11-19] MEDS: Lactated Ringers 1,000 ML 999 ML IV ×2 (10:22→11:27)
[2023-11-19 10:25] VITALS: BP 152/66; PULSE 63; RESP 16; TEMP 36.1; O2SAT 96; BMI 33.6
[2023-11-19] MEDS: 0.9% NaCl Peripheral Flush Adult/Peds IV (12:37)
[2023-11-19 12:40] VITALS: BP 180/78; PULSE 77; RESP 16; TEMP 36.5; O2SAT 97
== END 2023-11-19 23:59 | disposition home or self-care (01) ==
LOC: MEDOUTP 10:08
PROVIDERS: PCP Internal Medicine; Referring Provider Internal Medicine Gastroenterology; Visit Provider Internal Medicine Gastroenterology
DX: E86.0 Dehydration (principal); R19.8 Other specified symptoms and signs involving the digestive system and abdomen; R09.89 Other specified symptoms and signs involving the circulatory and respiratory systems
CPT/HCPCS: 96365; 96366; 93880; J7120; A4216

== ENCOUNTER → 2023-11-19 | Outpatient (CLI) | payer MEDICARE, MEDICAID, SELFPAY ==
[2023-10-27 12:02] VITALS: BMI 30.9
--- NOTE | 2023-11-19 14:40 | CDU_ITS ---
Reason For Study: Lt Carotid Bruit Rt. Velocities/BP Lt. Velocities/BP Prox CCA 83.0/11.8 cm/sec. Prox CCA 144.7/17.3 cm/sec. Mid CCA 78.1/10.6 cm/sec. Mid CCA 107.3/13.0 cm/sec. Dist CCA 79.1/17.0 cm/sec. Dist CCA 127.1/13.0 cm/sec. Prox ICA 335.7/52.5 cm/sec. Prox ICA 206.6/44.9 cm/sec. Mid ICA 330.7/48.3 cm/sec. Mid ICA 170.8/38.6 cm/sec. Dist ICA 87.6/21.2 cm/sec. Dist ICA 94.8/25.4 cm/sec. Rt. ICA/CCA = 4.3. Lt. ICA/CCA = 1.9. Prox ECA 439.9/6.7 cm/sec. Prox ECA 171.0/8.6 cm/sec. Rt. Vert. 75.6/11.8 cm/sec. Lt. Vert. 68.6/15.8 cm/sec. Right Extracranial There is heterogeneous, irregular atherosclerotic plaque noted in the right common carotid artery. There is heterogeneous, irregular atherosclerotic plaque noted in the right internal carotid artery. There is heterogeneous, irregular atherosclerotic plaque noted in the right external carotid artery. Antegrade flow is noted in the right vertebral artery. Left Extracranial There is heterogeneous, irregular atherosclerotic plaque noted in the left common carotid artery. There is heterogeneous, irregular atherosclerotic plaque noted in the left internal carotid artery. There is heterogeneous, irregular atherosclerotic plaque noted in the left external carotid artery. Antegrade flow is noted in the left vertebral artery. Procedure Carotid Duplex [id number]. This is a Carotid Duplex examination using B-mode, color flow and specral Doppler. The study was technically difficult. Exam performed in department. VL/Carotid Duplex Ultrasound Interpretation Summary Severe (>70%) stenosis right extracranial internal carotid. Moderate (50-69%) stenosis left extracranial internal carotid. Patent and antegrade vertebrals bilaterally. Ordering Physician: Herbert Marks Referring Physician: Mala Mcgrath Performed By: Alex Padilla RVT
== END | disposition home or self-care (01) ==
LOC: CVS 14:40
PROVIDERS: PCP Internal Medicine; Referring Provider Psychiatry & Neurology Neurology; Visit Provider Psychiatry & Neurology Neurology
DX: R09.89 Other specified symptoms and signs involving the circulatory and respiratory systems (principal)
CPT/HCPCS: 93880

== ENCOUNTER 2023-11-23 10:08 | Day surgery (SDC) | payer MEDICARE, MEDICAID, SELFPAY ==
[2023-10-27 12:02] VITALS: BMI 30.9
[2023-11-23] VITALS (9 sets, daily range): BP systolic 134–153; BP diastolic 59–77; PULSE 67–74; RESP 16–18; TEMP 36.2–36.6; O2SAT 92–97; BMI 33.0
[2023-11-23] MEDS: Lactated Ringers 1,000 ML 15 ML IV (10:45)
[2023-11-23 11:07] LABS: Bedside Glucose 281 mg/dL (74-106)
--- NOTE | 2023-11-23 11:42 | PCM.PRE.AN2 ---
ASA Classification* ASA Classification ASA Classification: 3 Assessment & Plan Anesthesia* Anesthesia Assessment Anesthesia Assessment: Discussed sedation and/or anesthesia options, risks, benefits, and alternatives with patient/parents/legal guardian/POA. Questions invited. The patient/parents/legal guardian/POA seems to understand and agrees to proceed with anesthesia plan. Reviewed the physical assessment, medical history, allergy history and patient home medications list prior to surgery/procedure/anesthetic and documented any changes. Performed airway and anesthesia risk assessments. Anesthesia Type Anesthesia Type: MAC History Source History Obtained from:: Patient and Chart Anesthesia Focused Assessment* Temperature: 98 F Pulse Rate: 71 Blood Pressure: 134/73 Respiratory Rate: 18 Pulse Ox: 97 Oxygen Delivery Method: Room Air Airway Assessment Mouth opens: >3 cm Mallampati Score: III Neck Range of motion (ROM): Limited ROM (Somewhat decreased extension) Focused Labs Anesthesia Preop lab: CBC WBC 6.9 K/mm3 (4.4-11.0) 10/29/23 14:11 RBC 4.54 M/mm3 (4.2-5.4) 10/29/23 14:11 Hgb 12.6 g/dL (12.0-15.0) 10/29/23 14:11 Hct 40.2 % (37-47) 10/29/23 14:11 Plt Count 194 K/mm3 (150-450) 10/29/23 14:11 CHEMISTRY Potassium 4.4 mmol/L (3.5-5.1) 10/29/23 14:11 Sodium 141 mmol/L (136-145) 10/29/23 14:11 Magnesium 1.5 mg/dL (1.6-2.6) L 10/29/23 14:11 Phosphorus 3.4 mg/dL (2.5-4.9) 09/28/23 13:10 BUN 29 mg/dL (7-18) H 10/29/23 14:11 Creatinine 1.72 mg/dL (0.55-1.02) H 10/29/23 14:11 Glucose 181 mg/dL (74-106) H 10/29/23 14:11 POC Glucose 281 mg/dL (74-106) H 11/23/23 10:28 TSH 0.722 uIU/mL (0.358-3.740) 10/29/23 14:11 COAG PT 12.8 SECONDS (11.7-14.9) 09/19/21 10:42 Pre-Assessment Diagnosis/Proposed Procedure Planned Operative Procedure(s): RIGHT IJ PORT EXCHANGE Anesthesia History Anesthesia History - artificial inseminator: Anesthesia History - artificial inseminator Hx Hospitalization Yes: DEHYDRATION MULTIPLE 11/17/23 13:39 TIMES 2023 Any Problems With Anesthesia No 11/17/23 13:39 Cholinesterase deficiency No 11/17/23 13:39 You/Your Family Experience No 11/17/23 13:39 fever (hyperthermia) with Relationship Recent Exposure to Contagious No 11/23/23 10:46 Disease Does patient have nerve No 11/17/23 13:39 stimulator Patient instructed to have device shut off --Does patient have Pacemaker No 11/23/23 10:46 or ICD? When Was Last Pacemaker Check QUESTION #4 FULL TEXT: You/Your Family Experience fever (hyperthermia) with Anesthesia Last Oral Intake Last Oral intake: Last Oral Intake NPO since 00:00 11/23/23 10:46 Meds taken in AM with sips of No 11/23/23 10:46 water? Meds patient instructed to take am of surgery PONV PONV - artificial inseminator: PONV - artificial inseminator Female Yes 11/17/23 13:39 HX of Motion Sickness No 11/17/23 13:39 HX of N/V After Surgery No 11/17/23 13:39 Non-Smoker Yes 11/17/23 13:39 Duration of Surgery greater No 11/17/23 13:39 than 60 minutes Number of Risk Factors 2 11/17/23 13:39 PONV Score Moderate Risk 11/17/23 13:39 Height & Weight Height & Weight: Anesthesia: Height & Weight Height 5 ft 7 in 11/23/23 10:46 Weight: 95.8 kg 11/23/23 10:46 Body Mass Index (BMI) 33.0 11/23/23 10:46 Respiratory Assessment Respiratory Assessment - artificial inseminator: Respiratory Tract Infection Hx - artificial inseminator Hx Respiratory Tract Infection No 11/17/23 13:39 STOP Sleep Apnea STOP Sleep Apnea - artificial inseminator: STOP Sleep Apnea - artificial inseminator Hx Hypertension Yes: CONTROLLED WITH MED 11/19/23 10:25 Hx Sleep Apnea Yes 11/17/23 13:39 CPAP No 11/17/23 13:39 BIPAP Yes 11/17/23 13:39 Do you snore loudly (louder than talking or can be heard Do you often feel tired/ fatigued/ sleepy during daytime? Has anyone observed you stop breathing during sleep? STOP Results Positive 11/17/23 13:39 QUESTION #5 FULL TEXT : Do you snore loudly (louder than talking or can be heard through closed doors)? Tobacco Use History Tobacco Use History - artificial inseminator: Tobacco Use History - artificial inseminator Tobacco Use Cigarettes 10/27/23 12:02 Smoking Status Former smoker 11/17/23 13:39 Hx Tobacco Use No 11/17/23 13:39 Years Smoking Packs Smoked per Day Smoking Cessation Date was No - quit smoking greater 11/17/23 13:39 within the last 15 years than 15 years ago Hx Smoking Cessation Date 03/08/12 11/17/23 13:39 Hx Smoking Cessation No 11/17/23 13:39 Counseling Hematologic Medial History Hematologic Hx - artificial inseminator: Hematologic Medical Hx - credit analyst Hx of Blood Transfusion Yes 11/17/23 13:39 Hx of Transfusion in last 3 No 11/17/23 13:39 Months Date of Last Transfusion (if within last 3 months) Ever experience any problems No 11/17/23 13:39 with transfusion(s)? Specify any problems Hx of Preganancy in last 3 No 11/17/23 13:39 Months Nurse Filling Out Transfusion DSCHRIBER 11/17/23 13:39 & Questions: Date: 11/17/23 11/17/23 13:39 Time: 13:41 11/17/23 13:39 Patient unable to answer at this time (ie. confused, unrespo /Reproduction History /Reproductive History - artificial inseminator: /Reproductive Hx- artificial inseminator Hx Now Gestational Age (in weeks): EDC: Hx Hx Para Hx Section SAB No 11/17/23 13:39 Active Medications Active Medications: Current Medications Generic Name Dose Route Start Last Admin Trade Name Freq PRN Reason Stop Dose Admin Cefazolin Sodium 2 gm/ Sodium 110 mls @ 150 mls/hr 11/23/23 12:05 Chloride IV 11/23/23 12:48 PREOP ONE Lactated Ringer's 1,000 mls @ 15 mls/hr 11/23/23 10:30 11/23/23 10:45 IV 15 mls/hr .Q48H KIRSTEN Administration PFSH Medical History Dehydration Falls Hypoxic respiratory failure Hypercapnic respiratory failure Fatigue Low back pain Abnormality of gait and mobility Polyneuropathy Insulin pump titration Presence of insulin pump Health care maintenance Essential tremor Dementia History of stress test Fungal dermatitis Herpes genitalia Encounter for insertion of venous access port Post-menopausal Rash Back pain Arthritis Ambulates with cane History of renal disease High cholesterol Dietary restriction History of pain when walking History of echocardiogram Chronic kidney disease (CKD) stage G4/A2, severely decreased glomerular filtration rate (GFR) between 15-29 mL/min/1.73 square meter and albuminuria creatinine ratio between 30-299 mg/g Chronic kidney disease (CKD) stage G4/A1, severely decreased glomerular filtration rate (GFR) between 15-29 mL/min/1.73 square meter and albuminuria creatinine ratio less than 30 mg/g Ingrown toenail Neuropathy Hyperglycemia due to diabetes mellitus Frequent falls Tremor Depression Chronic pain Rheumatoid arthritis Congestive heart failure (CHF) Lumbar spondylosis Greater trochanteric bursitis CKD (chronic kidney disease) stage 3, GFR 30-59 ml/min Malaise and fatigue Vitamin B12 deficiency History of CAD (coronary artery disease) Memory loss Anxiety and depression Degenerative disc disease at L5-S1 level CAD (coronary artery disease) Cellulitis, abdominal wall Left shoulder pain Gastroparesis Vitamin D deficiency Acute kidney injury CKD (chronic kidney disease), stage IV High output ileostomy MGUS (monoclonal gammopathy of unknown significance) Elevated anti-tissue transglutaminase (tTG) IgA level Ileostomy present Short bowel syndrome Loss of hearing Wears glasses History of COVID-19 Anxiety Insulin dependent diabetes mellitus Walker as ambulation aid Fatty liver Migraine headache Hx of diabetic gastroparesis Gastric reflux Former smoker BiPAP (biphasic positive airway pressure) dependence Hypertension Cardiology follow-up encounter Myoclonic jerking Chronic narcotic use Avascular necrosis of bone of left hip Chronic back pain Non-alcoholic fatty liver disease Liver mass Ulcerative colitis Nonalcoholic steatohepatitis Chronic respiratory failure Smoking greater than 20 pack years Obesity Chronic respiratory failure with hypoxia, on home O2 therapy Diabetic gastroparesis Secondary pulmonary arterial hypertension Chronic diastolic (congestive) heart failure Type 2 diabetes mellitus with diabetic polyneuropathy BMI 31.0-31.9,adult Depression with anxiety Arthritis Menieres disease Hyperlipidemia Psoriasis Obstructive sleep apnea COPD (chronic obstructive pulmonary disease) FCHL (familial combined hyperlipidemia) DM2 (diabetes mellitus, type 2) Home Medications ?Medication ?Instructions ?Recorded ?Last Taken ?Type blood-glucose meter,continuous 11/15/21 Unknown History ([employer]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) nitroglycerin 0.4 mg sublingual 0.4 mg sublingual Q5-15M PRN chest 11/20/21 Unknown Rx tablet pain #25 tabs isosorbide dinitrate 30 mg tablet 30 mg PO BID heart #60 tabs 12/11/22 09/18/23 Rx clopidogrel 75 mg tablet 75 mg PO DAILY heart health #90 02/04/23 11/16/23 Rx tabs cyclobenzaprine 10 mg tablet 10 mg PO TID PRN muscle spasm #30 02/24/23 04/30/23 Rx tabs trazodone 50 mg tablet 50 mg PO QHS sleep 03/18/23 09/17/23 History pantoprazole 40 mg tablet,delayed 40 mg PO BID GERD #60 tabs 04/29/23 09/18/23 Rx release (Protonix) albuterol sulfate 90 mcg/actuation 2 puff inhalation BID PRN SOB 05/01/23 08/07/23 History aerosol inhaler lamotrigine 200 mg tablet 200 mg PO DAILY mood 05/01/23 05/30/23 History dicyclomine 10 mg capsule 10 mg PO BID stomach 30 days #60 05/03/23 09/18/23 Rx caps diphenoxylate-atropine 2.5 1 tab PO TID PRN diarrhea 06/21/23 09/04/23 History mg-0.025 mg tablet (Lomotil) insulin pump cart,automated,BT #45 ea 07/14/23 Unknown Rx (Omnipod 5 G6 Pods (Gen 5) subcutaneous cartridge) atorvastatin 80 mg tablet 80 mg PO QHS CHOLESTEROL LOWERING 07/22/23 09/17/23 Rx #90 tabs buprenorphine HCl 150 mcg buccal 150 mcg buccal Q12H pain 08/04/23 09/18/23 History film aspirin 81 mg tablet,delayed 81 mg PO DAILY heart health 08/16/23 11/16/23 History release metoprolol tartrate 25 mg tablet 75 mg PO BID bp 09/18/23 11/22/23 History benzonatate 200 mg capsule 200 mg PO DAILY PRN cough 09/22/23 Unknown History fluticasone propionate 50 2 spray intranasal DAILY #16 grams 09/22/23 Unknown Rx mcg/actuation nasal spray,suspension (Flonase Allergy Relief) Arthritis Pain Compound 0 click topical TID ##0 09/25/23 Unknown Rx cholecalciferol (vitamin D3) 1,250 1,250 mcg PO QWEEK supplement #4 10/29/23 Unknown Rx mcg (50,000 unit) capsule caps galantamine 8 mg 24 hr 8 mg PO QAM #30 caps 10/29/23 Unknown Rx capsule,extended release rimegepant 75 mg disintegrating 75 mg PO DAILY PRN migraine 10/29/23 Unknown Rx tablet (Nurtec ODT) headache #16 tabs pregabalin 75 mg capsule 75 mg PO QHS #30 caps 11/01/23 Unknown Rx duloxetine 60 mg capsule,delayed 60 mg PO DAILY 11/17/23 Unknown History release valacyclovir 500 mg tablet 1,000 mg PO DAILY PRN HSV 11/17/23 Unknown History Allergy/AdvReac Type Severity Reaction Status Date / Time cinnamon (Cinnamon) Allergy Severe Anaphylaxis Verified 11/23/23 10:40 Influenza Virus Vaccines Allergy Severe Shortness Verified 11/23/23 10:40 of breath liraglutide (From Victoza) Allergy Severe Anaphylaxis Verified 11/23/23 10:40 ciprofloxacin Allergy Intermediate Swelling Verified 11/23/23 10:40 metformin (From Glucophage) Allergy Mild Nausea Verified 11/23/23 10:40 metronidazole (From Flagyl) Allergy Hives Verified 11/23/23 10:40 Metronidazole HCl (From Allergy Hives Verified 11/23/23 10:40 Flagyl) Penicillins Allergy Hives Verified 11/23/23 10:40 Sulfa (Sulfonamide Allergy Hives Verified 11/23/23 10:40 Antibiotics) aripiprazole (From Abilify) AdvReac hallucinati Verified 11/23/23 10:40 ons metformin HCl (From AdvReac Nausea Verified 11/23/23 10:40 Glucophage) ranolazine AdvReac Nausea/Vom/ Verified 11/23/23 10:40 Diarrhea [id number] Reductase AdvReac Nausea/joints Verified 11/23/23 10:40 Inhibitor ([id number]-[id number]-Omq ache Reductase Inhibitor) Family History Mother CVA (cerebral vascular accident) Diabetes Brother Heart disease of CAD at 65 Myocardial infarction Pancreatitis Father Cancer lymphomia Lymphoma Grandmother Myocardial infarction of [place] in her 70s Sister COPD (chronic obstructive pulmonary disease) Surgical History History of vascular access device History of colonoscopy History of esophagogastroduodenoscopy (EGD) History of appendectomy History of coronary artery stent placement H/O total hip arthroplasty Status post total hip replacement, left History of cardiac catheterization History of History of cholecystectomy H/O coronary artery bypass surgery (05/18/12) History of coronary artery stent placement (01/12/18) H/O sinus surgery history closed fissure Ileostomy status H/O colectomy left thumb surgery H/O total hysterectomy ileostomy Social History household members: none Smoking Status: Former smoker quit date: 03/08/12 how long ago did patient quit smoking: quit in 2012; 0.5-1ppd x 30yrs alcohol intake: never substance use type: does not use diet: diabetic caffeine: No eating out: 1-3 times/week what type of physical activity do you participate in: none seatbelt use: always do you feel safe at home: Yes Review of Systems (Anesthesia) ROS Narrative System reviewed and no additional complaints, except as documented.
--- NOTE | 2023-11-23 11:45 | PCM.HP.BLA ---
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 Required: No Accompanied by: Sister Is patient in pain?: No Allergies cinnamon (Cinnamon) Allergy (Severe, Verified 11/11/23 12:58) AnaphylaxisInfluenza Virus Vaccines Allergy (Severe, Verified 11/11/23 12:58) Shortness of breathliraglutide (From Victoza) Allergy (Severe, Verified 11/11/23 12:58) Anaphylaxisciprofloxacin Allergy (Intermediate, Verified 11/11/23 12:58) Swellingmetformin (From Glucophage) Allergy (Mild, Verified 11/11/23 12:58) Nauseametronidazole (From Flagyl) Allergy (Verified 11/11/23 12:58) HivesMetronidazole HCl (From Flagyl) Allergy (Verified 11/11/23 12:58) HivesPenicillins Allergy (Verified 11/11/23 12:58) HivesSulfa (Sulfonamide Antibiotics) Allergy (Verified 11/11/23 12:58) Hivesaripiprazole (From Abilify) Adverse Reaction (Verified 11/11/23 12:58) hallucinationsmetformin HCl (From Glucophage) Adverse Reaction (Verified 11/11/23 12:58) Nausearanolazine Adverse Reaction (Verified 11/11/23 12:58) Nausea/Vom/VewyspocTilixds-CRX-CtE Reductase Inhibitor (Smvrvtu-Mvn-Cro Reductase Inhibitor) Adverse Reaction (Verified 11/11/23 12:58) Nausea/joints ache Medications ?Medication ?Instructions ?Recorded ?Confirmed ?Type Wheel Chair 11/15/21 11/11/23 History blood sugar diagnostic (True 11/15/21 11/11/23 History Metrix Glucose Test Strip) blood-glucose meter,continuous 11/15/21 11/11/23 History (Dexcom G6 Agriculture Laborer) pen needle, diabetic 32 gauge x 11/15/21 11/11/23 History 5/32 (BD Ultra-Fine Key Pen Needle) nitroglycerin 0.4 mg sublingual 0.4 mg sublingual Q5-15M PRN chest 11/20/21 11/11/23 Rx tablet pain #25 tabs ostomy supplies #1 ea 02/13/22 11/11/23 Rx Handicap Placard #1 ea 09/16/22 11/11/23 Rx isosorbide dinitrate 30 mg tablet 30 mg PO BID heart #60 tabs 12/11/22 11/11/23 Rx Juanita Cohesive Seal 2 diameter #15 ea 01/18/23 11/11/23 Rx Esenta Sting Free Adhesive Remover #15 ea 01/18/23 11/11/23 Rx Wipe - Esenta Sting Free Skin Barrier #15 ea 01/18/23 11/11/23 Rx Filion, 50 mL - Esteem + Convex One-Piece #15 ea 01/18/23 11/11/23 Rx Drainable Pre-Cut Pouch w/visiClose, Durahesive, 12 panel [place], 1 03/15 clopidogrel 75 mg tablet 75 mg PO DAILY heart health #90 02/04/23 11/11/23 Rx tabs blood sugar diagnostic (True #100 ea 02/08/23 11/11/23 Rx Metrix Glucose Test Strip) cyclobenzaprine 10 mg tablet 10 mg PO TID PRN muscle spasm #30 02/24/23 11/11/23 Rx tabs trazodone 50 mg tablet 50 mg PO QHS sleep 03/18/23 11/11/23 History insulin lispro 200 unit/mL (3 mL) 160 unit (0.8 mL) subcut DAILY 04/21/23 11/11/23 Rx subcutaneous pen (Humalog KwikPen diabetes #72 mL U-200 Insulin) pantoprazole 40 mg tablet,delayed 40 mg PO BID GERD #60 tabs 04/29/23 11/11/23 Rx release (Protonix) albuterol sulfate 90 mcg/actuation 2 puff inhalation BID PRN SOB 05/01/23 11/11/23 History aerosol inhaler lamotrigine 200 mg tablet 100 mg PO DAILY mood 05/01/23 11/11/23 History dicyclomine 10 mg capsule 10 mg PO BID stomach 30 days #60 05/03/23 11/11/23 Rx caps blood-glucose sensor (Dexcom G6 #9 ea 06/10/23 11/11/23 Rx Sensor device) diphenoxylate-atropine 2.5 1 tab PO TID PRN diarrhea 06/21/23 11/11/23 History mg-0.025 mg tablet (Lomotil) blood-glucose transmitter (Dexcom #1 ea 07/09/23 11/11/23 Rx G6 Transmitter device) insulin pump cart,automated,BT #45 ea 07/14/23 11/11/23 Rx (Omnipod 5 G6 Pods (Gen 5) subcutaneous cartridge) atorvastatin 80 mg tablet 80 mg PO QHS CHOLESTEROL LOWERING 07/22/23 11/11/23 Rx #90 tabs buprenorphine HCl 150 mcg buccal 150 mcg buccal Q12H pain 08/04/23 11/11/23 History film aspirin 81 mg tablet,delayed 81 mg PO DAILY heart health 08/16/23 11/11/23 History release metoprolol tartrate 25 mg tablet 75 mg PO BID bp 09/18/23 11/11/23 History Bipap Mask and Tubing #1 ea 09/22/23 11/11/23 Rx benzonatate 200 mg capsule 200 mg PO 09/22/23 11/11/23 History cholestyramine (with sugar) 4 gram 1 ea PO BID 09/22/23 11/11/23 History powder for susp in a packet fluticasone propionate 50 2 spray intranasal DAILY #16 grams 09/22/23 11/11/23 Rx mcg/actuation nasal spray,suspension (Flonase Allergy Relief) Arthritis Pain Compound 0 click topical TID ##0 09/25/23 11/11/23 Rx duloxetine 30 mg capsule,delayed 30 mg PO QHS #0 caps 09/25/23 11/11/23 Rx release valacyclovir 500 mg tablet 1,000 mg (2 x 500 mg) PO DAILY HSV 09/25/23 11/11/23 Rx 5 days #10 tabs cholecalciferol (vitamin D3) 1,250 1,250 mcg PO QWEEK supplement #4 10/29/23 11/11/23 Rx mcg (50,000 unit) capsule caps galantamine 16 mg 24 hr 16 mg PO QAM #30 caps 10/29/23 11/11/23 Rx capsule,extended release galantamine 8 mg 24 hr 8 mg PO QAM #30 caps 10/29/23 11/11/23 Rx capsule,extended release rimegepant 75 mg disintegrating 75 mg PO DAILY PRN migraine 10/29/23 11/11/23 Rx tablet (Nurtec ODT) headache #16 tabs pregabalin 75 mg capsule 75 mg PO QHS #30 caps 11/01/23 11/11/23 Rx Have you fallen in the past year?: No PFSH Medical History (Updated 11/11/23 @ 13:[address] Timbo Deluna MD) CKD (chronic kidney disease) stage 3, GFR 30-59 ml/min Insulin pump titration Presence of insulin pump Neuropathy Essential tremor Type 2 diabetes mellitus with diabetic polyneuropathy Obstructive sleep apnea Falls Hypoxic respiratory failure Hypercapnic respiratory failure Fatigue Low back pain Abnormality of gait and mobility Polyneuropathy Dementia Encounter for insertion of venous access port Chronic kidney disease (CKD) stage G4/A2, severely decreased glomerular filtration rate (GFR) between 15-29 mL/min/1.73 square meter and albuminuria creatinine ratio between 30-299 mg/g Chronic kidney disease (CKD) stage G4/A1, severely decreased glomerular filtration rate (GFR) between 15-29 mL/min/1.73 square meter and albuminuria creatinine ratio less than 30 mg/g Ingrown toenail Hyperglycemia due to diabetes mellitus Frequent falls Lumbar spondylosis Greater trochanteric bursitis Memory loss Degenerative disc disease at L5-S1 level Gastroparesis Health care maintenance History of stress test Fungal dermatitis Herpes genitalia Post-menopausal Rash Back pain Arthritis Ambulates with cane History of renal disease High cholesterol Dietary restriction History of pain when walking History of echocardiogram Tremor Depression Chronic pain Rheumatoid arthritis Sleep apnea Congestive heart failure (CHF) Malaise and fatigue Vitamin B12 deficiency History of CAD (coronary artery disease) Anxiety and depression CAD (coronary artery disease) Cellulitis, abdominal wall Left shoulder pain Vitamin D deficiency Acute kidney injury CKD (chronic kidney disease), stage IV High output ileostomy MGUS (monoclonal gammopathy of unknown significance) Elevated anti-tissue transglutaminase (tTG) IgA level Ileostomy present Short bowel syndrome Loss of hearing Wears glasses History of COVID-19 Anxiety Insulin dependent diabetes mellitus Walker as ambulation aid Fatty liver Migraine headache Hx of diabetic gastroparesis Gastric reflux Former smoker BiPAP (biphasic positive airway pressure) dependence Hypertension Cardiology follow-up encounter Myoclonic jerking Chronic narcotic use Avascular necrosis of bone of left hip Chronic back pain Non-alcoholic fatty liver disease Liver mass Ulcerative colitis Nonalcoholic steatohepatitis Chronic respiratory failure Smoking greater than 20 pack years Obesity Chronic respiratory failure with hypoxia, on home O2 therapy Diabetic gastroparesis Secondary pulmonary arterial hypertension Chronic diastolic (congestive) heart failure BMI 31.0-31.9,adult Depression with anxiety Arthritis Menieres disease Hyperlipidemia Psoriasis COPD (chronic obstructive pulmonary disease) FCHL (familial combined hyperlipidemia) DM2 (diabetes mellitus, type 2) Surgical History (Updated 11/11/23 @ 12:56 by Brittany Gibbs) History of vascular access device H/O total hip arthroplasty History of colonoscopy History of esophagogastroduodenoscopy (EGD) History of appendectomy History of coronary artery stent placement Status post total hip replacement, left History of cardiac catheterization History of History of cholecystectomy H/O coronary artery bypass surgery (05/18/12) History of coronary artery stent placement (01/12/18) H/O sinus surgery history closed fissure Ileostomy status H/O colectomy left thumb surgery H/O total hysterectomy ileostomy Family History Mother CVA (cerebral vascular accident) DiabetesBrother Heart disease of CAD at 65 Myocardial infarction PancreatitisFather Cancer lymphomia LymphomaGrandmother Myocardial infarction of [place] in her 70sSister COPD (chronic obstructive pulmonary disease) Social History household members: none Smoking Status: Former smoker quit date: 03/08/12 how long ago did patient quit smoking: quit in 2012; 0.5-1ppd x 30yrs alcohol intake: never substance use type: does not use diet: diabetic caffeine: No eating out: 1-3 times/week what type of physical activity do you participate in: none seatbelt use: always do you feel safe at home: Yes HPI HPI HPI: Patient is a 63-year-old female here for port dysfunction. She notes that the infusion center is having difficulty drawing blood from it. She says they were able to infuse but sometimes meet resistance doing this. ROS General General: Yes fatigue; No weight change, appetite, colon cancer, breast cancer or weakness HEENT HEENT: No difficulty swallowing, eye injury, eye surgery, swollen glands or hoarseness Endo Endocrine: Yes diabetes mellitus; No thyroid disease, thyroid cancer, Hair loss, heat intolerance or cold intolerance Skin Skin: Yes rash; No changing moles Breast Breast: No left breast lump, right breast lump, nipple discharge, breast pain, abnormal mammogram, abnormal US or breast enlargement Musc Musculoskeletal: Yes back problems, arthritis and rheumatoid arthritis; No gout or joint pain Cardio Cardiovascular: Yes heart disease, high blood pressure and heart stent; No murmur, pacemaker, atrial fibrillation, heart attack, palpitations, shortness of breat with exertion or chest pain Psych Psychiatric: Yes depression and anxiety; No hearing voices Resp Respiratory: Yes shortness of breath, Yes sleep apnea, No cough, Yes COPD, No asthma, No emphysema and No wheezing Gastro Gastrointestinal: Yes abdominal pain, Yes nausea or vomiting, Yes diarrhea, No constipation, No blood in stool, No acid reflux, No hemorrhoids, No ulcers, Yes gallbladder problem and No black,tarry stools Jose Hematologic: Yes blood thinners, No blood disorders, No bleeding, No anemia and No blood clots Neuro Neurologic: No system reviewed and no additional complaints, except as documented, No as per HPI, No abnormal gait, No abnormal hearing, No abnormal movements, No abnormal speech, No behavioral changes, No burning sensations, No confusion, No convulsions, No disequilibrium, No dizziness, No localized weakness, No frequent falls, No headache(s), No lack of coordination, No loss of vision, No memory loss, Yes numbness, No other visual disturbances, No radicular pain, No restless legs, No sensory deficit, No syncope, Yes tingling, No tremor(s), No weakness and No other Exam Const General: cooperative Orientation: alert and oriented x3 HENMT Head: normal to inspection Neck Neck: normal visual inspection and full ROM Chest Chest palpation & inspection: normal inspection of the chest Resp Effort & Inspection: normal respiratory effort Auscultation: clear to auscultation bilaterally Cardio Rate: regular rate Rhythm: regular rhythm GI Inspection: non-distended Palpation: soft and nontender Skin General: no rashes or lesions noted Neuro General: patient alert and patient oriented x3 Extrem General: full ROM Psych Appearance: grossly normal Mental Status: mental status grossly normal Assessment and Plan Assessment and Plan (1) Vascular catheter dysfunction: Status: Acute Qualifiers: Encounter type: initial encounter Qualified Code(s): T82.518A - Breakdown (mechanical) of other cardiac and vascular devices and implants, initial encounter Plan: The patient's port is functioning poorly. They are having difficulty drawing from it and some difficulty infusing through it. I will exchanged out for a new port in the same site. I will try to make the port longer and extend into the atrium and if this is not possible I will find a new site. I discussed port exchange with the patient in detail and I discussed the risks of bleeding and infection. Patient understands the risks and is willing to proceed. Patient will hold her aspirin for 5 days prior to the procedure as well as Plavix. Timbo Deluna MD Pager: [facility] [address] [place] [address], [address] [place] [address] Office: I have examined the patient and the H&P has been reviewed. There are no clinical changes since date of exam.
[2023-11-23] MEDS: Cefazolin 2 GM in 0.9% Normal Saline (100mL Bag) 100 ML IV (12:11)
[2023-11-23] MEDS: Bupivacaine Mpf 0.5% 30 ML VIAL (12:26)
[2023-11-23] MEDS: Lidocaine 1% /Epi 1:100 (20ml) 20 ML Vial (12:26)
--- NOTE | 2023-11-23 12:52 | RAD_ITS ---
STUDY: X-RAY CHEST REASON FOR EXAM: Female, 63 years old. Line placement -- in pacu TECHNIQUE: Single AP portable view of the chest. COMPARISON: Comparison is made with prior study dated September 22, 2023. FINDINGS: A right-sided Port-A-Cath has been placed with the tip at the junction of the superior vena cava and right atrium. The lungs are clear and expanded. There is no demonstrated pleural abnormality. Sternal cerclage wires and vascular clips are present from a prior sternotomy and coronary artery bypass graft procedure (CABG). Normal mediastinum and marie. Normal visualized pulmonary arteries. Normal visualized aortic arch and descending thoracic aorta. Normal visualized thoracic spine. Normal visualized ribs, clavicles, and shoulders. There is no demonstrated abnormality of the visualized soft tissue structures of the upper abdomen. RAD/CXR for Line Placement IMPRESSION: The tip of the right port catheter is at the junction of the superior vena cava and right atrium. Electronically Signed: Eric Spencer MD at 14:07 EDT ,
--- NOTE | 2023-11-23 12:57 | OP.PCM_ITS ---
Report of Operation Date of Procedure: 11/23/23
--- NOTE | 2023-11-23 12:57 | PCM.OPRPT ---
Report of Operation Date of Procedure: 11/23/23 Pre-Operative Diagnosis: Nonfunctioning right chest port Post-Operative Diagnosis: Same Surgery/Procedure Performed:: Exchange of right chest port Type of Anesthesia: Local MAC Specimen's removed: Old port Estimated Blood Loss (mL): 10 Description of Procedure: Patient was brought back to the operating room and MAC anesthesia was induced. The right chest and neck were prepped and draped in usual sterile fashion. The prior incision was injected with local anesthetic and then incised with a scalpel. The port was identified. It was easily removed. Next a small incision was made in the right neck and using ultrasound guidance the right IJ was accessed. Guidewire was placed down the needle under fluoroscopy guidance with no resistance. Next the catheter was run and tunneled from the lower incision to the upper incision and then placed through the peel-away sheath. Peel-away sheath was removed. Fluoroscopy revealed the catheter was in good position. Next the catheter was trimmed and connected to the port and locked in place. Next the port was sutured to the subcutaneous tissue using 2-0 Vicryl suture. The area was irrigated and then the port was tested. It shanda and flushed easily. Next 3 cc of heparinized saline were placed into the port. The incisions over this closed with interrupted 3-0 Vicryl sutures. Steri-Strips and bandages were applied. Patient was taken to PACU in stable condition and chest x-ray will be obtained. Grafts/Implants Used: 8 Moroccan PowerPort Admit VTE Documentation VTE Mechan Device Prophylaxis: SCD's
--- NOTE | 2023-11-23 12:59 | PCM.POST.ANE ---
Anesthesia: Postop Eval I Current Vital Signs Temperature: 97.2 F Pulse Rate: 74 Blood Pressure: 153/61 Respiratory Rate: 16 Pulse Ox: 97 Oxygen Delivery Method: Room Air Assessment Airway patent: Yes Spontaneous unlabored respirations: Yes Mental status: Awake and Calm nausea: No Vomiting: No Anesthesia Complication: No Fluid Hydration Crystalloid volume administer (ml): 700 Total IV fluid infused: 700 Progress Note Anesthesia document: Postop Eval 1 completed: Yes
--- NOTE | 2023-11-23 13:02 | DCINST_ITS ---
Discharge Instructions Procedure Port-A-Cath Diet Discharge Diet: Light diet - advance as tolerated (Pain medication may cause nausea. You should typically eat light foods as you take your pain medication.) Activity Discharge Activity: Return to Normal Activity and May Shower (with your bandage in place in 1-2 days after surgery. DO NOT SHOWER WHEN YOUR PORT IS ACCESSED.) Additional Activity Instructions:: Resume aspirin and Plavix tomorrow Alternate ibuprofen and Tylenol for pain control Dressing / Incision Call your doctor if your incision/area has: Continuous Slow Oozing, Sudden Increased Bleeding, Increased Pain/ Swelling, Increased Redness and Foul Smelling Discharge Call your doctor if you observe: Fever of 101 or Higher Remove Dressing in: 2 days Cleanse incision/area with: Soap & Water Follow Up Care Please Follow Up With: Timbo Deluna MD When: as needed [phone] Test Results: Test results from this visit will be discussed in further detail at your follow- up appointment, if applicable. Discharge Plan Admission Attending Provider: Timbo Deluna Primary Care Provider: Mala Mcgrath Instructions Print Language: Kazakh Discharge Orders/Prescriptions Prescriptions: No Action nitroglycerin 0.4 mg tablet, sublingual 0.4 mg sublingual Q5-15M PRN (Reason: chest pain) Qty: 25 6RF Rx Instructions: do not exceed 3 doses per episode cyclobenzaprine 10 mg tablet 10 mg PO TID PRN (Reason: muscle spasm) Qty: 30 0RF galantamine 8 mg capsule,ext rel. pellets 24 hr 8 mg PO QAM Qty: 30 0RF Rx Instructions: administer with breakfast Nurtec ODT 75 mg tablet,disintegrating 75 mg PO DAILY PRN (Reason: migraine headache) Qty: 16 5RF cholecalciferol (vitamin D3) 1,250 mcg (50,000 unit) capsule 1,250 mcg PO QWEEK Qty: 4 5RF fluticasone propionate [Flonase Allergy Relief] 50 mcg/actuation spray,suspension 2 spray intranasal DAILY Qty: 16 3RF Rx Instructions: administer into each nostril aspirin 81 mg tablet,delayed release (DR/EC) 81 mg PO DAILY (DME) Dexcom G6 Bath Steward/Stewardess Misc See Rx Instructions .ROUTE .MEDSUPPLY Rx Instructions: As directed trazodone 50 mg tablet 50 mg PO QHS diphenoxylate-atropine [Lomotil] 2.5-0.025 mg tablet 1 tab PO TID PRN (Reason: diarrhea) buprenorphine HCl 150 mcg film 150 mcg buccal Q12H metoprolol tartrate 25 mg tablet 75 mg PO BID Rx Instructions: 25 mg orally take with a 50 mg tablet twice a day to = 75 mg twice a day; duloxetine 60 mg capsule,delayed release(DR/EC) 60 mg PO DAILY valacyclovir 500 mg tablet 1,000 mg PO DAILY PRN (Reason: HSV) lamotrigine 200 mg tablet 200 mg PO DAILY albuterol sulfate 90 mcg/actuation HFA aerosol inhaler 2 puff INHALATION BID PRN (Reason: SOB) dicyclomine 10 mg Capsule 10 mg PO BID 30 Days Qty: 60 0RF benzonatate 200 mg capsule 200 mg PO DAILY PRN (Reason: cough) Arthritis Pain Compound 0 click topical TID Qty: 0 0RF isosorbide dinitrate 30 mg tablet 30 mg PO BID Qty: 60 11RF clopidogrel 75 mg tablet 75 mg PO DAILY Qty: 90 3RF Rx Instructions: TAKE 1 TABLET BY MOUTH EVERY DAY pantoprazole [Protonix] 40 mg tablet,delayed release (DR/EC) 40 mg PO BID Qty: 60 11RF (DME) Omnipod 5 G6 Pods (Gen 5) Cartridge See Rx Instructions .Route Qty: 45 1RF Rx Instructions: 1 pod q 48 hours atorvastatin 80 mg tablet 80 mg PO QHS Qty: 90 3RF Patient Comments: cholesterol pregabalin 75 mg capsule 75 mg PO QHS Qty: 30 0RF Referrals / Follow Up: Mala Mcgrath MD [Primary Care Provider] - Disposition Disposition (needs filled in before D/C Order can be placed): Home, Self Care
--- NOTE | 2023-11-23 17:34 | POSTOPAN2_ITS ---
Anesthesia Postop Eval I Sum Postop Eval Completion status Anesthesia document: Postop Eval 1 completed: Yes Anesthesia Postop Eval I Summary Anesthesia Postop Eval I Summary: Anesthesia Postop Eval I: Assessment Summary Airway patent Yes 11/23/23 13:00 BODY MAKE UP ARTIST.SCHR Spontaneous unlabored Yes 11/23/23 13:00 BODY MAKE UP ARTIST.SCHR respirations Mental status Awake,Calm 11/23/23 13:00 BODY MAKE UP ARTIST.SCHR nausea No 11/23/23 13:00 BODY MAKE UP ARTIST.SCHR Vomiting No 11/23/23 13:00 BODY [facility] Anesthesia Postop Eval I: Fluid Summary Crystalloid volume administer 700 11/23/23 13:00 BODY MAKE UP ARTIST.SCHR (ml) Colloids volume administered ( ml) Blood Product volume administered (ml) Total IV fluid infused 700 11/23/23 13:00 BODY MAKE [facility] Anesthesia Postop Eval I: Summary Notes Anesthesia Complication No 11/23/23 13:00 BODY MAKE UP [facility]IST.[facility] Anesthesia Complication Comment: Post-operative progress note Anesthesia: Postop Eval II Evaluation Mental status: Awake and Calm Pain Level: 1 nausea: No Vomiting: No Complications Anesthesia Complication: No
--- NOTE | 2023-11-23 17:34 | PCM.POSTANE2 ---
Anesthesia Postop Eval I Sum Postop Eval Completion status Anesthesia document: Postop Eval 1 completed: Yes Anesthesia Postop Eval I Summary Anesthesia Postop Eval I Summary: Anesthesia Postop Eval I: Assessment Summary Airway patent Yes 11/23/23 13:[address] INSPECTOR.SCHR Spontaneous unlabored Yes 11/23/23 13:[address] INSPECTOR.SCHR respirations Mental status Awake,Calm 11/23/23 13:[address] INSPECTOR.SCHR nausea No 11/23/23 13:[address] INSPECT[address].SCHR Vomiting No 11/23/23 13:[address] [facility] Anest[facility] Postop Eval I: Fluid Summary Crystalloid volume administer 700 11/23/23 13:[address] INSPECTOR.SCHR (ml) Colloids volume administered ( ml) Blood Product volume administered (ml) Total IV fluid infused 700 11/23/23 13:[address] [facility] Anesthesia Postop Eval I: Summary Notes Anesthesia Complication No 11/23/23 13:[address] [facility]OR[facility] Anesthesia Complication Comment: Post-operative progress note Anesthesia: Postop Eval II Evaluation Mental status: Awake and Calm Pain Level: 1 nausea: No Vomiting: No Complications Anesthesia Complication: No
== END 2023-11-23 14:20 | disposition home or self-care (01) ==
LOC: SDC 10:09 → AC 10:10
PROVIDERS: PCP Internal Medicine; Referring Provider Surgery; Visit Provider Surgery
PROC: (CPT 36561; principal; 2023-11-23 11:50)
DX: T82.518A Breakdown (mechanical) of other cardiac and vascular devices and implants, initial encounter (principal); M06.9 Rheumatoid arthritis, unspecified; J96.11 Chronic respiratory failure with hypoxia; I13.0 Hypertensive heart and chronic kidney disease with heart failure and stage 1 through stage 4 chronic kidney disease, or unspecified chronic kidney disease; I50.32 Chronic diastolic (congestive) heart failure; F03.90 Unspecified dementia, unspecified severity, without behavioral disturbance, psychotic disturbance, mood disturbance, and anxiety; J44.9 Chronic obstructive pulmonary disease, unspecified; K51.90 Ulcerative colitis, unspecified, without complications; Z79.4 Long term (current) use of insulin; E11.43 Type 2 diabetes mellitus with diabetic autonomic (poly)neuropathy; E11.22 Type 2 diabetes mellitus with diabetic chronic kidney disease; E11.42 Type 2 diabetes mellitus with diabetic polyneuropathy; E11.65 Type 2 diabetes mellitus with hyperglycemia; N18.32 Chronic kidney disease, stage 3b; F41.8 Other specified anxiety disorders; L40.9 Psoriasis, unspecified; E55.9 Vitamin D deficiency, unspecified; E78.49 Other hyperlipidemia; E66.9 Obesity, unspecified; Z68.31 Body mass index [BMI] 31.0-31.9, adult; K21.9 Gastro-esophageal reflux disease without esophagitis; I25.10 Atherosclerotic heart disease of native coronary artery without angina pectoris; K31.84 Gastroparesis; K75.81 Nonalcoholic steatohepatitis (NASH); A60.00 Herpesviral infection of urogenital system, unspecified; G47.33 Obstructive sleep apnea (adult) (pediatric); M17.11 Unilateral primary osteoarthritis, right knee; M51.37 Other intervertebral disc degeneration, lumbosacral region; M47.816 Spondylosis without myelopathy or radiculopathy, lumbar region; Z78.0 Asymptomatic menopausal state; Z88.0 Allergy status to penicillin; Z88.2 Allergy status to sulfonamides; Z95.5 Presence of coronary angioplasty implant and graft; Z86.16 Personal history of COVID-19; Z99.81 Dependence on supplemental oxygen; Z79.02 Long term (current) use of antithrombotics/antiplatelets; Z96.41 Presence of insulin pump (external) (internal); Z90.49 Acquired absence of other specified parts of digestive tract; Z87.891 Personal history of nicotine dependence; Z79.82 Long term (current) use of aspirin; Z79.899 Other long term (current) drug therapy
CPT/HCPCS: 36561; 00532; 71045; 77001; 82962; J7120; C1788; J2405

== ENCOUNTER 2023-11-24 09:57 | Outpatient (CLI) | payer MEDICARE, MEDICAID, SELFPAY ==
[2023-10-27 12:02] VITALS: BMI 30.9
[2023-11-24] MEDS: 0.9% NaCl Peripheral Flush Adult/Peds IV (10:34)
[2023-11-24] MEDS: Lactated Ringers 1,000 ML 999 ML IV ×2 (10:35→11:46)
[2023-11-24 10:38] VITALS: BP 120/50; PULSE 67; RESP 16; TEMP 36.1; O2SAT 95; BMI 33.0
[2023-11-24 13:08] VITALS: BP 128/58; PULSE 76
== END 2023-11-24 23:59 | disposition home or self-care (01) ==
LOC: MEDOUTP 09:58
PROVIDERS: PCP Internal Medicine; Referring Provider Internal Medicine Gastroenterology; Visit Provider Internal Medicine Gastroenterology
DX: E86.0 Dehydration (principal); R19.8 Other specified symptoms and signs involving the digestive system and abdomen
CPT/HCPCS: 96360; 96361; J7120; A4216

== ENCOUNTER 2023-11-26 09:45 | Outpatient (CLI) | payer MEDICARE, MEDICAID, SELFPAY ==
[2023-10-27 12:02] VITALS: BMI 30.9
[2023-11-26 09:55] VITALS: BP 154/63; PULSE 68; RESP 16; TEMP 35.4; O2SAT 95; BMI 33.0
[2023-11-26] MEDS: Lactated Ringers 1,000 ML 999 ML IV ×2 (10:20→11:21)
[2023-11-26] MEDS: 0.9% NaCl Peripheral Flush Adult/Peds IV (12:32)
[2023-11-26 12:36] VITALS: BP 170/62; PULSE 78; RESP 16; O2SAT 99
== END 2023-11-26 23:59 | disposition home or self-care (01) ==
LOC: MEDOUTP 09:45
PROVIDERS: PCP Internal Medicine; Referring Provider Internal Medicine Gastroenterology; Visit Provider Internal Medicine Gastroenterology
DX: E86.0 Dehydration (principal); R19.8 Other specified symptoms and signs involving the digestive system and abdomen
CPT/HCPCS: 96360; 96361; J7120; A4216

== ENCOUNTER 2023-11-30 11:02 | Outpatient (CLI) | payer MEDICARE, MEDICAID, SELFPAY ==
[2023-10-27 12:02] VITALS: BMI 30.9
[2023-11-30 11:20] VITALS: BP 147/63; PULSE 64; RESP 16; TEMP 36.3; O2SAT 95; BMI 33.0
[2023-11-30] MEDS: Lactated Ringers 1,000 ML 999 ML IV ×2 (11:23→12:25)
[2023-11-30] MEDS: 0.9% NaCl Peripheral Flush Adult/Peds IV (13:36)
[2023-11-30 13:38] VITALS: BP 132/48; PULSE 68; RESP 16
== END 2023-11-30 23:59 | disposition home or self-care (01) ==
LOC: MEDOUTP 11:02
PROVIDERS: PCP Internal Medicine; Referring Provider Internal Medicine Gastroenterology; Visit Provider Internal Medicine Gastroenterology
DX: E86.0 Dehydration (principal); R19.8 Other specified symptoms and signs involving the digestive system and abdomen
CPT/HCPCS: 96360; 96361; J7120; A4216

== ENCOUNTER → 2023-12-01 | Outpatient (CLI) | payer MEDICARE, MEDICAID, SELFPAY ==
[2023-10-27 12:02] VITALS: BMI 30.9
--- NOTE | 2023-12-01 10:17 | MRI_ITS ---
STUDY: MRI RIGHT KNEE REASON FOR EXAM: Female, 63 years old. Pain. TECHNIQUE: Standardized fat and water weighted pulse sequences were obtained in all 3 orthogonal planes. COMPARISON: Right knee radiographs dated 11/03/2023. FINDINGS: There is geographic and serpiginous signal abnormality in the distal femoral metadiaphysis, compatible with osteonecrosis / bone infarct. There is a small horizontal tear of the posterior body of the medial meniscus (coronal T2 series 6 images 14-15). There is mild degenerative arthrosis of the medial femorotibial compartment with tiny marginal osteophyte formation and low-grade chondromalacia. Normal medial collateral ligamentous complex (MCL). Normal distal semimembranosus, gracilis and semitendinosus tendons. Normal lateral meniscus. There is focal moderate to high-grade chondromalacia along the posterior weightbearing surfaces of the lateral femoral condyle and lateral tibial plateau (sagittal T2 series 4 image 9). Normal lateral femoral condyle and tibial plateau. Normal proximal tibiofibular articulation. Normal lateral collateral (fibular) ligament. Normal popliteus tendon. Normal biceps femoris tendon. Normal anterior cruciate ligament (ACL). Normal posterior cruciate ligament (PCL). There is low-grade chondromalacia along the medial patellar facet (axial T2 series 2 image 14). Congruent patellofemoral articulation. Normal medial and lateral patellar retinaculum. Normal quadriceps tendon. Normal patellar tendon. Normal Hoffa''s fat pad. There is a moderate volume joint effusion. There is no popliteal cyst. There is mild subcutaneous soft tissue edema around the knee. 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 Small horizontal tear of the posterior body of the medial meniscus. Tricompartment degenerative arthrosis. Moderate joint effusion. Mild subcutaneous soft tissue edema around the knee. Electronically Signed: Elier Cain MD at 14:56 EDT Reading Location ID and State: [facility] / [place] , Service support ,
== END | disposition home or self-care (01) ==
LOC: MRI 09:46
PROVIDERS: PCP Internal Medicine; Referring Provider Orthopaedic Surgery; Visit Provider Orthopaedic Surgery
DX: M25.561 Pain in right knee (principal)
CPT/HCPCS: 73721

== ENCOUNTER 2023-12-03 10:24 | Outpatient (CLI) | payer MEDICARE, MEDICAID, SELFPAY ==
[2023-10-27 12:02] VITALS: BMI 30.9
[2023-12-03 10:34] VITALS: BP 165/68; PULSE 68; RESP 16; TEMP 36; O2SAT 98
[2023-12-03] MEDS: 0.9 % NaCl (Sterile) Posiflush 10 mL IV (10:45)
[2023-12-03] MEDS: Lactated Ringers 1,000 ML 999 ML IV ×2 (10:46→11:57)
[2023-12-03] MEDS: 0.9% NaCl Peripheral Flush Adult/Peds IV (13:12)
[2023-12-03 13:15] VITALS: BP 155/68; PULSE 68; RESP 16; O2SAT 96
== END 2023-12-03 23:59 | disposition home or self-care (01) ==
LOC: MEDOUTP 10:24
PROVIDERS: PCP Internal Medicine; Referring Provider Internal Medicine Gastroenterology; Visit Provider Internal Medicine Gastroenterology
DX: E86.0 Dehydration (principal); R19.8 Other specified symptoms and signs involving the digestive system and abdomen
CPT/HCPCS: 96360; 96361; J7120; A4216

== ENCOUNTER 2023-12-07 10:40 | Outpatient (CLI) | payer MEDICARE, MEDICAID, SELFPAY ==
[2023-10-27 12:02] VITALS: BMI 30.9
[2023-12-07] MEDS: Lactated Ringers 1,000 ML 999 ML IV ×2 (10:55→11:58)
[2023-12-07 10:57] VITALS: BP 162/71; PULSE 70; RESP 16; TEMP 35.9; O2SAT 95
[2023-12-07 13:15] VITALS: BP 152/80; PULSE 69; RESP 16; TEMP 36.3; O2SAT 95
== END 2023-12-07 23:59 | disposition home or self-care (01) ==
LOC: MEDOUTP 10:42
PROVIDERS: PCP Internal Medicine; Referring Provider Internal Medicine Gastroenterology; Visit Provider Internal Medicine Gastroenterology
DX: E86.0 Dehydration (principal); R19.8 Other specified symptoms and signs involving the digestive system and abdomen
CPT/HCPCS: 96360; 96361; J7120; A4216

== ENCOUNTER 2023-12-10 10:54 | Outpatient (CLI) | payer MEDICARE, MEDICAID, SELFPAY ==
[2023-10-27 12:02] VITALS: BMI 30.9
[2023-12-10] MEDS: Lactated Ringers 1,000 ML 999 ML IV ×2 (11:13→12:21)
[2023-12-10 11:15] VITALS: BP 154/70; PULSE 58; RESP 16; TEMP 36.5; O2SAT 94
[2023-12-10 13:29] VITALS: BP 180/54; PULSE 63; RESP 16; TEMP 36.3; O2SAT 98
== END 2023-12-10 23:59 | disposition home or self-care (01) ==
LOC: MEDOUTP 10:54
PROVIDERS: PCP Internal Medicine; Referring Provider Internal Medicine Gastroenterology; Visit Provider Internal Medicine Gastroenterology
DX: E86.0 Dehydration (principal); R19.8 Other specified symptoms and signs involving the digestive system and abdomen
CPT/HCPCS: 96360; 96361; J7120

== ENCOUNTER → 2023-12-17 | Outpatient (CLI) | payer MEDICARE, MEDICAID, SELFPAY ==
[2023-10-27 12:02] VITALS: BMI 30.9
--- NOTE | 2023-12-17 12:46 | CT_ITS ---
STUDY: CTA HEAD AND NECK WITH CONTRAST REASON FOR EXAM: Female, 63 years old. Mental status change RADIATION DOSAGE (If Supplied By Facility): CTDIvol = ( 26.02 ) mGy, DLP = ( 1608.66 ) mGycm TECHNIQUE: CT angiography was performed with a multi-detector CT scanner. Data acquisition was obtained from the skull base through the vertex following intravenous administration of IV 100mL Isovue-370. MIP images were reconstructed from the axial data set. Post-processing of the angiographic images was performed, with multiplanar reformation and 3D reconstruction. Individualized dose optimization techniques were used for this CT. COMPARISON: No relevant priors. FINDINGS: Normal bilateral petrous carotid arteries. Normal right cavernous carotid artery with a normal supraclinoid bifurcation. Normal left cavernous carotid artery with a normal supraclinoid bifurcation. Normal right A1 segments of the anterior cerebral artery. Normal left A1 segments of the anterior cerebral artery. Normal intact anterior communicating artery (ACOM). Normal bilateral A2 segments of the anterior cerebral arteries. Normal right M1 and M2 segments of the middle cerebral arteries, with a normal M1 bifurcation. Normal left M1 and M2 segments of the middle cerebral arteries, with a normal M1 bifurcation. Normal right posterior communicating artery (PCOM). Normal left posterior communicating artery (PCOM). Normal bilateral vertebral arteries. Normal basilar artery with a normal basilar bifurcation. The visualized bilateral superior cerebellar (SCA) arteries are normal. Normal bilateral P1, P2 and visualized P3 segments of the posterior cerebral arteries. There is no demonstrated aneurysm of the koi of [place]. There is no demonstrated abnormality of the visualized brain. AORTIC ARCH: Normal visualized aortic arch. Normal origins of the brachiocephalic, left common carotid, and left subclavian arteries. RIGHT CAROTID ARTERIES: Normal right common carotid artery (CCA). Mild calcified posterior plaque in the right carotid bulb with low-density mural thrombus that in combination is narrowing the carotid bulb proximally 70%. Normal origin of the right internal carotid (ICA) artery without a hemodynamically significant stenosis. Normal visualized cervical portion of the right internal carotid artery. Normal origin of the right external carotid artery (ECA). LEFT CAROTID ARTERIES: Normal left common carotid artery (CCA). Mild calcified plaque in the left common carotid artery bulb with mural thrombus narrowing the left carotid bulb by approximately 30% Normal origin of the left internal carotid (ICA) artery with calcified plaque and mural thrombus narrowing the proximal ICA by approximately 40%. Normal origin of the left external carotid artery (ECA). VERTEBRAL ARTERIES: Normal bilateral vertebral arteries. CT/CTA Head AND Neck W/ Contrast IMPRESSION: Mild posterior calcified plaque in the right common carotid artery bulb with low-density mural thrombus causing 70% stenosis on the right carotid bulb. Mild calcified plaque in the left common carotid artery bulb with mural thrombus causing 30% stenosis Calcified plaque and mural thrombus in the proximal left ICA causing 40% stenosis No significant CTA stenosis noted in the right ICA Patent and normal-appearing vertebral arteries No intracranial stenosis or vaso-occlusive disease. No demonstrated aneurysm or vascular malformation Electronically Signed: Leoncio Lopez MD at 15:26 EDT ,
[2023-12-17 13:14] LABS: CREATININE FINGERSTICK 1.1 mg/dL (0.55-1.02)
== END | disposition home or self-care (01) ==
LOC: CT 12:46
PROVIDERS: PCP Internal Medicine; Referring Provider Physician Assistant; Visit Provider Physician Assistant
DX: I65.21 Occlusion and stenosis of right carotid artery (principal)
CPT/HCPCS: 70496; 70498; Q9967; A4216

== ENCOUNTER → 2024-01-17 | Outpatient (CLI) | payer MEDICARE, MEDICAID, SELFPAY ==
[2023-10-27 12:02] VITALS: BMI 30.9
[2024-01-17 11:11] LABS: Absolute Lymphocyte Count 3.49 X10^3/uL (0.83-4.51); Absolute Neutrophil Count 4.1 X10^3/uL (2.0-7.7); Basophil# 0.07 X10^3/uL; Basophil% 0.8 % (0-1); Eosinophil# 0.35 X10^3/uL; Hematocrit 42.8 % (37-47); Hemoglobin 13.4 g/dL (12.0-15.0); Lymphocyte # 3.49 X10^3/ul (0.83-4.51); Lymphocyte % 40.1 % (19-41); Mean Corp Hgb Conc 31.3 g/dL (32-36); Mean Corpuscular Hgb 27.2 pg (27.0-32.0); Mean Platelet Vol. 11.7 fl (6.2-12.0); Monocyte# 0.54 X10^3/uL; Monocyte% 6.2 % (0-10); NRBC Flagged by Analyzer 0 % (0-5); Neutrophil # 4.14 X10^3/uL (2.7-7.7); Neutrophil % 47.5 % (47-70); Platelet Count 199 K/mm3 (150-450); RBC Distribution Width CV 15.7 % (11.6-14.6); RBC Distribution Width SD 49.1 fl (35.1-43.9); Red Blood Count 4.92 M/mm3 (4.2-5.4); White Blood Count 8.7 K/mm3 (4.4-11.0)
[2024-01-17 11:43] LABS: ALB/GLOB Ratio 0.8 RATIO (0.9-2.4); AST(SGOT) 20 U/L (15-37); Alanine Aminotransfer ALT/SGPT 24 U/L (13-56); Albumin, Serum 3.4 g/dL (3.2-5.0); Alkaline Phosphatase 191 U/L (45-117); Anion Gap 5 (5-15); BUN 43 mg/dL (7-18); BUN/Creat Ratio 18.8 RATIO (10-20); Calcium,Total 9.7 mg/dL (8.5-10.1); Chloride 113 mmol/L (98-107); Creatinine, Serum 2.29 mg/dL (0.55-1.02); EST Glomerular Filtration Rate 23 mL/min (>60); Est Glom Filt Rate - Afr Amer 28 mL/min (>60); Globulin 4.1 g/dL (2.2-4.2); Glucose 277 mg/dL (74-106); LDH 162 U/L (84-246); Potassium 4.6 mmol/L (3.5-5.1); Protein, Total 7.5 g/dL (6.4-8.2); Sodium Level 139 mmol/L (136-145)
[2024-01-19 16:11] LABS: Albumin 3.4 g/dL (2.9-4.4); Alpha-1-Globulins 0.2 g/dL (0.0-0.4); Alpha-2-Globulins 1.2 g/dL (0.4-1.0); Immunoglobulin A 331 mg/dL (87-352); Immunoglobulin G 953 mg/dL (586-1602); Immunoglobulin M 44 mg/dL (26-217)
== END | disposition home or self-care (01) ==
LOC: LAB 10:56
PROVIDERS: PCP Internal Medicine; Referring Provider Internal Medicine Hematology & Oncology; Visit Provider Internal Medicine Hematology & Oncology
DX: D47.2 Monoclonal gammopathy (principal)
CPT/HCPCS: 36415; 80053; 82784; 83615; 84165; 85025; 86334

== ENCOUNTER 2024-01-18 05:36 | Day surgery (SDC) | payer MEDICARE, MEDICAID, SELFPAY ==
[2023-10-27 12:02] VITALS: BMI 30.9
[2024-01-18] VITALS (9 sets, daily range): BP systolic 131–165; BP diastolic 61–101; PULSE 83–87; RESP 16–18; TEMP 36.7–37.2; O2SAT 92–99; BMI 31.8
--- NOTE | 2024-01-18 06:28 | PCM.PRE.AN2 ---
ASA Classification* ASA Classification ASA Classification: 3 Assessment & Plan Anesthesia* Anesthesia Assessment Anesthesia Assessment: Discussed sedation and/or anesthesia options, risks, benefits, and alternatives with patient/parents/legal guardian/POA. Questions invited. The patient/parents/legal guardian/POA seems to understand and agrees to proceed with anesthesia plan. Reviewed the physical assessment, medical history, allergy history and patient home medications list prior to surgery/procedure/anesthetic and documented any changes. Performed airway and anesthesia risk assessments. Anesthesia Type Anesthesia Type: General Anesthesia Focused Assessment* Airway Assessment Mouth opens: >3 cm Mallampati Score: II Focused Labs Anesthesia Preop lab: CBC WBC 8.7 K/mm3 (4.4-11.0) 01/17/24 10:59 RBC 4.92 M/mm3 (4.2-5.4) 01/17/24 10:59 Hgb 13.4 g/dL (12.0-15.0) 01/17/24 10:59 Hct 42.8 % (37-47) 01/17/24 10:59 Plt Count 199 K/mm3 (150-450) 01/17/24 10:59 CHEMISTRY Potassium 4.6 mmol/L (3.5-5.1) 01/17/24 10:59 Sodium 139 mmol/L (136-145) 01/17/24 10:59 Magnesium 1.5 mg/dL (1.6-2.6) L 10/29/23 14:11 Phosphorus 3.4 mg/dL (2.5-4.9) 09/28/23 13:10 BUN 43 mg/dL (7-18) H 01/17/24 10:59 Creatinine 2.29 mg/dL (0.55-1.02) H 01/17/24 10:59 Glucose 277 mg/dL (74-106) H 01/17/24 10:59 POC Glucose 281 mg/dL (74-106) H 11/23/23 10:28 TSH 0.722 uIU/mL (0.358-3.740) 10/29/23 14:11 COAG PT 12.8 SECONDS (11.7-14.9) 09/19/21 10:42 Pre-Assessment Diagnosis/Proposed Procedure Planned Operative Procedure(s): (R) Right knee Arthroscopy, partial medial and lateral meniscectomy and surgery as indicated Anesthesia History Anesthesia History - storeroom keeper: Anesthesia History - storeroom keeper Hx Hospitalization Yes: DEHYDRATION MULTIPLE 12/29/23 11:52 TIMES 2023 Any Problems With Anesthesia No 12/29/23 11:52 Cholinesterase deficiency No 12/29/23 11:52 You/Your Family Experience No 12/29/23 11:52 fever (hyperthermia) with Relationship Recent Exposure to Contagious No 11/23/23 10:46 Disease Does patient have nerve No 12/29/23 11:52 stimulator Patient instructed to have device shut off --Does patient have Pacemaker or ICD? When Was Last Pacemaker Check QUESTION #4 FULL TEXT: You/Your Family Experience fever (hyperthermia) with Anesthesia Last Oral Intake Last Oral intake: Last Oral Intake NPO since Meds taken in AM with sips of water? Meds patient instructed to take am of surgery PONV PONV - storeroom keeper: PONV - storeroom keeper Female Yes 12/29/23 11:52 HX of Motion Sickness No 12/29/23 11:52 HX of N/V After Surgery No 12/29/23 11:52 Non-Smoker Yes 12/29/23 11:52 Duration of Surgery greater No 12/29/23 11:52 than 60 minutes Number of Risk Factors 2 12/29/23 11:52 PONV Score Moderate Risk 12/29/23 11:52 Height & Weight Height & Weight: Anesthesia: Height & Weight Height 5 ft 7 in 12/30/23 13:08 Respiratory Assessment Respiratory Assessment - storeroom keeper: Respiratory Tract Infection Hx - storeroom keeper Hx Respiratory Tract Infection No 12/29/23 11:52 STOP Sleep Apnea STOP Sleep Apnea - storeroom keeper: STOP Sleep Apnea - storeroom keeper Hx Hypertension Yes: CONTROLLED WITH MED 12/29/23 11:52 Hx Sleep Apnea Yes 12/29/23 11:52 CPAP No 12/29/23 11:52 BIPAP Yes 12/29/23 11:52 Do you snore loudly (louder than talking or can be heard Do you often feel tired/ fatigued/ sleepy during daytime? Has anyone observed you stop breathing during sleep? STOP Results Positive 12/29/23 11:52 QUESTION #5 FULL TEXT : Do you snore loudly (louder than talking or can be heard through closed doors)? Tobacco Use History Tobacco Use History - storeroom keeper: Tobacco Use History - storeroom keeper Tobacco Use Cigarettes 10/27/23 12:02 Smoking Status Former smoker 12/29/23 11:52 Hx Tobacco Use No 12/29/23 11:52 Years Smoking Packs Smoked per Day Smoking Cessation Date was Yes - quit smoking within 15 12/29/23 11:52 within the last 15 years years Hx Smoking Cessation Date 03/08/12 12/29/23 11:52 Hx Smoking Cessation No 12/29/23 11:52 Counseling Hematologic Medial History Hematologic Hx - storeroom keeper: Hematologic Medical Hx - control technician Hx of Blood Transfusion Yes 12/29/23 11:52 Hx of Transfusion in last 3 No 12/29/23 11:52 Months Date of Last Transfusion (if within last 3 months) Ever experience any problems No 12/29/23 11:52 with transfusion(s)? Specify any problems Hx of Preganancy in last 3 N/A 12/29/23 11:52 Months Nurse Filling Out Transfusion NBUCHER 12/29/23 11:52 & Questions: Date: 12/29/23 12/29/23 11:52 Time: 11:54 12/29/23 11:52 Patient unable to answer at this time (ie. confused, unrespo /Reproduction History /Reproductive History - storeroom keeper: /Reproductive Hx- storeroom keeper Hx Now Gestational Age (in weeks): EDC: Hx Hx Para Hx Section SAB No 12/29/23 11:52 Active Medications Active Medications: Current Medications Generic Name Dose Route Start Last Admin Trade Name Freq PRN Reason Stop Dose Admin Clindamycin Phosphate 900 mg in 50 mls @ 75 mls/hr 01/18/24 07:30 Cleocin IV 01/18/24 08:09 PREOP ONE [facility] Medical History Dehydration Falls Hypoxic respiratory failure Hypercapnic respiratory failure Fatigue Low back pain Abnormality of gait and mobility Polyneuropathy Insulin pump titration Presence of insulin pump Health care maintenance Essential tremor Dementia History of stress test Fungal dermatitis Herpes genitalia Encounter for insertion of venous access port Post-menopausal Rash Back pain Arthritis Ambulates with cane History of renal disease High cholesterol Dietary restriction History of pain when walking History of echocardiogram Chronic kidney disease (CKD) stage G4/A2, severely decreased glomerular filtration rate (GFR) between 15-29 mL/min/1.73 square meter and albuminuria creatinine ratio between 30-299 mg/g Chronic kidney disease (CKD) stage G4/A1, severely decreased glomerular filtration rate (GFR) between 15-29 mL/min/1.73 square meter and albuminuria creatinine ratio less than 30 mg/g Ingrown toenail Neuropathy Hyperglycemia due to diabetes mellitus Frequent falls Tremor Depression Chronic pain Rheumatoid arthritis Congestive heart failure (CHF) Lumbar spondylosis Greater trochanteric bursitis CKD (chronic kidney disease) stage 3, GFR 30-59 ml/min Malaise and fatigue Vitamin B12 deficiency History of CAD (coronary artery disease) Memory loss Anxiety and depression Degenerative disc disease at L5-S1 level CAD (coronary artery disease) Cellulitis, abdominal wall Left shoulder pain Gastroparesis Vitamin D deficiency Acute kidney injury CKD (chronic kidney disease), stage IV High output ileostomy MGUS (monoclonal gammopathy of unknown significance) Elevated anti-tissue transglutaminase (tTG) IgA level Ileostomy present Short bowel syndrome Loss of hearing Wears glasses History of COVID-19 Anxiety Insulin dependent diabetes mellitus Walker as ambulation aid Fatty liver Migraine headache Hx of diabetic gastroparesis Gastric reflux Former smoker BiPAP (biphasic positive airway pressure) dependence Hypertension Cardiology follow-up encounter Myoclonic jerking Chronic narcotic use Avascular necrosis of bone of left hip Chronic back pain Non-alcoholic fatty liver disease Liver mass Ulcerative colitis Nonalcoholic steatohepatitis Chronic respiratory failure Smoking greater than 20 pack years Obesity Chronic respiratory failure with hypoxia, on home O2 therapy Diabetic gastroparesis Secondary pulmonary arterial hypertension Chronic diastolic (congestive) heart failure Type 2 diabetes mellitus with diabetic polyneuropathy BMI 31.0-31.9,adult Depression with anxiety Arthritis Menieres disease Hyperlipidemia Psoriasis Obstructive sleep apnea COPD (chronic obstructive pulmonary disease) FCHL (familial combined hyperlipidemia) DM2 (diabetes mellitus, type 2) Home Medications ?Medication ?Instructions ?Recorded ?Last Taken ?Type blood-glucose meter,continuous 11/15/21 Unknown History ([employer]) nitroglycerin 0.4 mg sublingual 0.4 mg sublingual Q5-15M PRN chest 11/20/21 Unknown Rx tablet pain #25 tabs clopidogrel 75 mg tablet 75 mg PO DAILY heart health #90 02/04/23 11/16/23 Rx tabs cyclobenzaprine 10 mg tablet 10 mg PO TID PRN muscle spasm #30 02/24/23 04/30/23 Rx tabs pantoprazole 40 mg tablet,delayed 40 mg PO BID GERD #60 tabs 04/29/23 09/18/23 Rx release (Protonix) albuterol sulfate 90 mcg/actuation 2 puff inhalation BID PRN SOB 05/01/23 08/07/23 History aerosol inhaler lamotrigine 200 mg tablet 200 mg PO DAILY mood 05/01/23 05/30/23 History dicyclomine 10 mg capsule 10 mg PO BID stomach 30 days #60 05/03/23 09/18/23 Rx caps diphenoxylate-atropine 2.5 1 tab PO TID PRN diarrhea 06/21/23 09/04/23 History mg-0.025 mg tablet (Lomotil) insulin pump cart,automated,BT #45 ea 07/14/23 Unknown Rx (Omnipod 5 G6 Pods (Gen 5) subcutaneous cartridge) atorvastatin 80 mg tablet 80 mg PO QHS CHOLESTEROL LOWERING 07/22/23 09/17/23 Rx #90 tabs buprenorphine HCl 150 mcg buccal 150 mcg buccal Q12H pain 08/04/23 09/18/23 History film aspirin 81 mg tablet,delayed 81 mg PO DAILY heart health 08/16/23 11/16/23 History release metoprolol tartrate 25 mg tablet 75 mg PO BID bp 09/18/23 11/22/23 History benzonatate 200 mg capsule 200 mg PO DAILY PRN cough 09/22/23 Unknown History Arthritis Pain Compound 0 click topical TID ##0 09/25/23 Unknown Rx cholecalciferol (vitamin D3) 1,250 1,250 mcg PO QWEEK supplement #4 10/29/23 Unknown Rx mcg (50,000 unit) capsule caps galantamine 8 mg 24 hr 8 mg PO QAM #30 caps 10/29/23 Unknown Rx capsule,extended release rimegepant 75 mg disintegrating 75 mg PO DAILY PRN migraine 10/29/23 Unknown Rx tablet (Nurtec ODT) headache #16 tabs duloxetine 60 mg capsule,delayed 60 mg PO DAILY 11/17/23 Unknown History release valacyclovir 500 mg tablet 1,000 mg PO DAILY PRN HSV 11/17/23 Unknown History blood-glucose sensor (Dexcom G6 #9 ea 12/07/23 Unknown Rx Sensor device) isosorbide dinitrate 30 mg tablet 30 mg PO BID heart #60 tabs 12/08/23 Unknown Rx duloxetine 60 mg capsule,delayed 60 mg PO BID 12/23/23 Unknown History release hydroxyzine HCl 25 mg tablet 25 mg PO TID PRN nausea and 12/23/23 Unknown History vomiting hyoscyamine sulfate 0.125 mg tablet 0.125 mg PO BID-QID PRN dyspepsia 12/23/23 Unknown History mirtazapine 7.5 mg tablet 7.5 mg PO QHS #30 tabs 12/23/23 Unknown Rx fluticasone propionate 50 2 spray intranasal DAILY #16 grams 01/04/24 Unknown Rx mcg/actuation nasal spray,suspension (Flonase Allergy Relief) pregabalin 75 mg capsule 75 mg PO QHS #30 caps 01/11/24 Unknown Rx Allergy/AdvReac Type Severity Reaction Status Date / Time cinnamon (Cinnamon) Allergy Severe Anaphylaxis Verified 12/30/23 16:14 Influenza Virus Vaccines Allergy Severe Shortness Verified 12/30/23 16:14 of breath liraglutide (From Victoza) Allergy Severe Anaphylaxis Verified 12/30/23 16:14 ciprofloxacin Allergy Intermediate Swelling Verified 12/30/23 16:14 metformin (From Glucophage) Allergy Mild Nausea Verified 12/30/23 16:14 metronidazole (From Flagyl) Allergy Hives Verified 12/30/23 16:14 Metronidazole HCl (From Allergy Hives Verified 12/30/23 16:14 Flagyl) Penicillins Allergy Hives Verified 12/30/23 16:14 Sulfa (Sulfonamide Allergy Hives Verified 12/30/23 16:14 Antibiotics) aripiprazole (From Abilify) AdvReac hallucinati Verified 12/30/23 16:14 ons metformin HCl (From AdvReac Nausea Verified 12/30/23 16:14 Glucophage) ranolazine AdvReac Nausea/Vom/ Verified 12/30/23 16:14 Diarrhea [id number] Reductase AdvReac Nausea/joints Verified 12/30/23 16:14 Inhibitor (Lkvlhxm-Eez-Dvt ache Reductase Inhibitor) Family History Mother CVA (cerebral vascular accident) Diabetes Brother Heart disease of CAD at 65 Myocardial infarction Pancreatitis Father Cancer lymphomia Lymphoma Grandmother Myocardial infarction of [place] in her 70s Sister COPD (chronic obstructive pulmonary disease) Surgical History History of vascular access device History of colonoscopy History of esophagogastroduodenoscopy (EGD) History of appendectomy History of coronary artery stent placement H/O total hip arthroplasty Status post total hip replacement, left History of cardiac catheterization History of History of cholecystectomy H/O coronary artery bypass surgery (05/18/12) History of coronary artery stent placement (01/12/18) H/O sinus surgery history closed fissure Ileostomy status H/O colectomy left thumb surgery H/O total hysterectomy ileostomy Social History household members: none Smoking Status: Former smoker quit date: 03/08/12 how long ago did patient quit smoking: quit in 2012; 0.5-1ppd x 30yrs alcohol intake: never substance use type: does not use diet: diabetic caffeine: No eating out: 1-3 times/week what type of physical activity do you participate in: none seatbelt use: always do you feel safe at home: Yes Review of Systems (Anesthesia) ROS Narrative System reviewed and no additional complaints, except as documented.
[2024-01-18] MEDS: Lactated Ringers 1,000 ML 15 ML IV (06:48)
[2024-01-18] MEDS: 0.9% Saline Lock 10 ML Syringe IV (07:18)
--- NOTE | 2024-01-18 07:21 | PCM.HP.BLA ---
History and Physical Date of Admission: 01/18/24 [facility] [address] [place] [address] OFFICE VISIT Date of Service: 12/06/23 MR#: [id number] Acct: [id number] Name: ASHLEY MÉNDEZ Rep #: [id number] : 1960 Provider: Dr. Henri Camacho DO Age/Sex: 63/F Location: [facility] [email or web address] Status: Signed with Addenda ADDENDUM by Dr. Henri Camacho DO on 12/29/23 at 0758 Assessment and Plan Assessment and Plan (1) Medial meniscus tear: Status: Acute Qualifiers: Tear current or old: current Encounter type: subsequent encounter Meniscus tear of knee type: complex Laterality: right Qualified Code(s): S83.231D - Complex tear of medial meniscus, current injury, right knee, subsequent encounter (2) Lateral meniscus tear: Status: Acute Qualifiers: Tear current or old: current Encounter type: subsequent encounter Meniscus tear of knee type: peripheral Laterality: right Qualified Code(s): S83.261D - Peripheral tear of lateral meniscus, current injury, right knee, subsequent encounter (3) Right knee DJD: Status: Acute Qualifiers: Osteoarthritis type: primary Qualified Code(s): M17.11 - Unilateral primary osteoarthritis, right knee Plan Plan for partial medial partial lateral meniscectomy as was consented, radiologist did not read a lateral meniscus tear however I do appreciate this on my own interpretation. 12/29/23 0758 <Electronically signed by Henri Camacho DO> Date Henri Camacho DO cc: ~* Signed Intake Vital Signs 11/29/2410:20 12/02/2409:34 12/06/2411:54 Height 5 ft 7 in 5 ft 7 in 5 ft 7 in Weight: 208 lb BMI 32.5 Intake Visit Reasons: RIGHT KNEE Allergies cinnamon (Cinnamon) Allergy (Severe, Verified 12/06/23 12:58) AnaphylaxisInfluenza Virus Vaccines Allergy (Severe, Verified 12/06/23 12:58) Shortness of breathliraglutide (From Victoza) Allergy (Severe, Verified 12/06/23 12:58) Anaphylaxisciprofloxacin Allergy (Intermediate, Verified 12/06/23 12:58) Swellingmetformin (From Glucophage) Allergy (Mild, Verified 12/06/23 12:58) Nauseametronidazole (From Flagyl) Allergy (Verified 12/06/23 12:58) HivesMetronidazole HCl (From Flagyl) Allergy (Verified 12/06/23 12:58) HivesPenicillins Allergy (Verified 12/06/23 12:58) HivesSulfa (Sulfonamide Antibiotics) Allergy (Verified 12/06/23 12:58) Hivesaripiprazole (From Abilify) Adverse Reaction (Verified 12/06/23 12:58) hallucinationsmetformin HCl (From Glucophage) Adverse Reaction (Verified 12/06/23 12:58) Nausearanolazine Adverse Reaction (Verified 12/06/23 12:58) Nausea/Vom/IwmqrptaEifsizx-TLJ-OhP Reductase Inhibitor (Ymsiyej-Ewd-Ifh Reductase Inhibitor) Adverse Reaction (Verified 12/06/23 12:58) Nausea/joints ache Medications ?Medication ?Instructions ?Recorded ?Confirmed ?Type blood-glucose meter,continuous 11/15/21 12/06/23 History (Dexcom G6 Software Developer Intern) nitroglycerin 0.4 mg sublingual 0.4 mg sublingual Q5-15M PRN chest 11/20/21 12/06/23 Rx tablet pain #25 tabs isosorbide dinitrate 30 mg tablet 30 mg PO BID heart #60 tabs 12/11/22 12/06/23 Rx clopidogrel 75 mg tablet 75 mg PO DAILY heart health #90 02/04/23 12/06/23 Rx tabs cyclobenzaprine 10 mg tablet 10 mg PO TID PRN muscle spasm #30 02/24/23 12/06/23 Rx tabs trazodone 50 mg tablet 50 mg PO QHS sleep 03/18/23 12/06/23 History pantoprazole 40 mg tablet,delayed 40 mg PO BID GERD #60 tabs 04/29/23 12/06/23 Rx release (Protonix) albuterol sulfate 90 mcg/actuation 2 puff inhalation BID PRN SOB 05/01/23 12/06/23 History aerosol inhaler lamotrigine 200 mg tablet 200 mg PO DAILY mood 05/01/23 12/06/23 History dicyclomine 10 mg capsule 10 mg PO BID stomach 30 days #60 05/03/23 12/06/23 Rx caps diphenoxylate-atropine 2.5 1 tab PO TID PRN diarrhea 06/21/23 12/06/23 History mg-0.025 mg tablet (Lomotil) insulin pump cart,automated,BT #45 ea 07/14/23 12/06/23 Rx (Omnipod 5 G6 Pods (Gen 5) subcutaneous cartridge) atorvastatin 80 mg tablet 80 mg PO QHS CHOLESTEROL LOWERING 07/22/23 12/06/23 Rx #90 tabs buprenorphine HCl 150 mcg buccal 150 mcg buccal Q12H pain 08/04/23 12/06/23 History film aspirin 81 mg tablet,delayed 81 mg PO DAILY heart health 08/16/23 12/06/23 History release metoprolol tartrate 25 mg tablet 75 mg PO BID bp 09/18/23 12/06/23 History benzonatate 200 mg capsule 200 mg PO DAILY PRN cough 09/22/23 12/06/23 History fluticasone propionate 50 2 spray intranasal DAILY #16 grams 09/22/23 12/06/23 Rx mcg/actuation nasal spray,suspension (Flonase Allergy Relief) Arthritis Pain Compound 0 click topical TID ##0 09/25/23 12/06/23 Rx cholecalciferol (vitamin D3) 1,250 1,250 mcg PO QWEEK supplement #4 10/29/23 12/06/23 Rx mcg (50,000 unit) capsule caps galantamine 8 mg 24 hr 8 mg PO QAM #30 caps 10/29/23 12/06/23 Rx capsule,extended release rimegepant 75 mg disintegrating 75 mg PO DAILY PRN migraine 10/29/23 12/06/23 Rx tablet (Nurtec ODT) headache #16 tabs duloxetine 60 mg capsule,delayed 60 mg PO DAILY 11/17/23 12/06/23 History release valacyclovir 500 mg tablet 1,000 mg PO DAILY PRN HSV 11/17/23 12/06/23 History pregabalin 75 mg capsule 75 mg PO QHS #30 caps 11/25/23 12/06/23 Rx Have you fallen in the past year?: Yes (September) [facility] Medical History Dehydration Falls Hypoxic respiratory failure Hypercapnic respiratory failure Fatigue Low back pain Abnormality of gait and mobility Polyneuropathy Insulin pump titration Presence of insulin pump Health care maintenance Essential tremor Dementia History of stress test Fungal dermatitis Herpes genitalia Encounter for insertion of venous access port Post-menopausal Rash Back pain Arthritis Ambulates with cane History of renal disease High cholesterol Dietary restriction History of pain when walking History of echocardiogram Chronic kidney disease (CKD) stage G4/A2, severely decreased glomerular filtration rate (GFR) between 15-29 mL/min/1.73 square meter and albuminuria creatinine ratio between 30-299 mg/g Chronic kidney disease (CKD) stage G4/A1, severely decreased glomerular filtration rate (GFR) between 15-29 mL/min/1.73 square meter and albuminuria creatinine ratio less than 30 mg/g Ingrown toenail Neuropathy Hyperglycemia due to diabetes mellitus Frequent falls Tremor Depression Chronic pain Rheumatoid arthritis Congestive heart failure (CHF) Lumbar spondylosis Greater trochanteric bursitis CKD (chronic kidney disease) stage 3, GFR 30-59 ml/min Malaise and fatigue Vitamin B12 deficiency History of CAD (coronary artery disease) Memory loss Anxiety and depression Degenerative disc disease at L5-S1 level CAD (coronary artery disease) Cellulitis, abdominal wall Left shoulder pain Gastroparesis Vitamin D deficiency Acute kidney injury CKD (chronic kidney disease), stage IV High output ileostomy MGUS (monoclonal gammopathy of unknown significance) Elevated anti-tissue transglutaminase (tTG) IgA level Ileostomy present Short bowel syndrome Loss of hearing Wears glasses History of COVID-19 Anxiety Insulin dependent diabetes mellitus Walker as ambulation aid Fatty liver Migraine headache Hx of diabetic gastroparesis Gastric reflux Former smoker BiPAP (biphasic positive airway pressure) dependence Hypertension Cardiology follow-up encounter Myoclonic jerking Chronic narcotic use Avascular necrosis of bone of left hip Chronic back pain Non-alcoholic fatty liver disease Liver mass Ulcerative colitis Nonalcoholic steatohepatitis Chronic respiratory failure Smoking greater than 20 pack years Obesity Chronic respiratory failure with hypoxia, on home O2 therapy Diabetic gastroparesis Secondary pulmonary arterial hypertension Chronic diastolic (congestive) heart failure Type 2 diabetes mellitus with diabetic polyneuropathy BMI 31.0-31.9,adult Depression with anxiety Arthritis Menieres disease Hyperlipidemia Psoriasis Obstructive sleep apnea COPD (chronic obstructive pulmonary disease) FCHL (familial combined hyperlipidemia) DM2 (diabetes mellitus, type 2) Surgical History History of vascular access device History of colonoscopy History of esophagogastroduodenoscopy (EGD) History of appendectomy History of coronary artery stent placement H/O total hip arthroplasty Status post total hip replacement, left History of cardiac catheterization History of History of cholecystectomy H/O coronary artery bypass surgery (05/18/12) History of coronary artery stent placement (01/12/18) H/O sinus surgery history closed fissure Ileostomy status H/O colectomy left thumb surgery H/O total hysterectomy ileostomy Family History Mother CVA (cerebral vascular accident) DiabetesBrother Heart disease of CAD at 65 Myocardial infarction PancreatitisFather Cancer lymphomia LymphomaGrandmother Myocardial infarction of [place] in her 70sSister COPD (chronic obstructive pulmonary disease) Social History household members: none Smoking Status: Former smoker quit date: 03/08/12 how long ago did patient quit smoking: quit in 2013; 0.5-1ppd x 30yrs alcohol intake: never substance use type: does not use diet: diabetic caffeine: No eating out: 1-3 times/week what type of physical activity do you participate in: none seatbelt use: always do you feel safe at home: Yes HPI RIGHT KNEE Details: This documentation accurately reflects the service provided and the decisions made by me, Dr. Henri Camacho, DO 12/06/23 0808. Part of today?s visit was documented by Lynnette LEOS, acting as scribe. ASHLEY MÉNDEZ is a 63 year old F here today for follow-up on right knee MRI 12/06/2023: Patient is continuing to have severe pain in her right knee and painful mechanical symptoms since her fall. 11/03/2023 visit: Ashley has had multiple falls this year this most recent 1 she injured her right knee 2 months ago she has since been having painful mechanical symptoms mostly medial compartment. We did take x-rays today which do demonstrate some mild patellofemoral arthrosis as well as medial joint space narrowing and chondrocalcinosis of the medial lateral knee Educated patient about anatomy and etiology of the knee. Spoke with patient that she does have some degenerative narrowing of the joint as well as some hardening of her meniscus. Patient is showing signs of a meniscus tear. At this point i recommend an MRI to rule out a medial meniscus tear. Patient is unable to take NSAIDs as she has stage 4 kidney failure. She is already doing Tylenol Follow up after MRI or sooner if pain, swelling, numbness or associated symptoms, or concerns develop. All questions answered. Patient in agreement of plan. Ortho Exam General General: Yes no acute distress Neurologic: Yes alert and Yes oriented x3 Psychologic: Yes reasonable and appropriate Right Knee Skin/Wound: No erythema, No ecchymosis and Yes swelling Knee ROM: Yes ROM-Extension -20 to 0 and Yes ROM-Flexion 0-140 (108) Examination: Yes Med jt line tenderness, No Lat jt line tenderness, Yes Aneudy's Test and No TTP Pes Anserine Stability: NML: Anterior Drawer, NML: Posterior Drawer, NML: Valgus 0, NML: Valgus 30, NML: Varus 0 and NML: Varus 30 Patella Grind: Yes KNEE: small joint effusion pain with medial aneudy medial side pain with later aneudy Constitutional: Well-developed; well-nourished; in no acute distress Eyes: No jaundice ENT: Nares patent; no obvious deformity Cardiovascular: No cyanosis; clubbing; or edema Lymphatic: No adenopathy in area of examination Skin: No rashes or lesions in the area of examination and intact Neurologic: Alert and oriented x 3 Psychiatric: Mood and affect appropriate Supplemental Info 12/01/2023 MRI right knee: Read as osteonecrosis / bone infarct in the distal femoral metadiaphysis. Small horizontal tear of the posterior body of the medial meniscus. Tricompartment degenerative arthrosis. Moderate joint effusion. Mild subcutaneous soft tissue edema around the knee. Femoral mid diaphysis lesion is consistent with a bone infarct I would characterize the medial meniscus more than a small tear and there is also a tear of the anterior horn and posterior horn of the lateral meniscus. 11/03/2023 x-ray right knee there is mild to moderate medial joint space narrowing there is chondrocalcinosis present medial and lateral compartments faint spurring of trochlea 02/24/2023 x-ray left hip: Status post total hip arthroplasty, good interfaces and position no concern for loosening or fracture, 06/02/2022 MRI lumbar spine: Multilevel degenerative changes from L4-S1, L4-L5 right neural foraminal stenosis hemangioma of L4, L5 and S1 bilateral neuroforaminal stenosis compression of the exiting nerve roots secondary to endplate spondylosis and facet arthropathy there is also a posterior disc bulge osteophyte complex Coding Level of Care Code Off vis,est,level 3 Diagnoses Complex tear of medial meniscus of right knee as current injury, subsequent encounter S83.231D Tear current or old: current Encounter type: subsequent encounter Meniscus tear of knee type: complex Laterality: right Peripheral tear of lateral meniscus of right knee as current injury, subsequent encounter S83.261D Tear current or old: current Encounter type: subsequent encounter Meniscus tear of knee type: peripheral Laterality: right Primary osteoarthritis of right knee M17.11 Osteoarthritis type: primary Assessment and Plan Assessment and Plan (1) Medial meniscus tear: Status: Acute Qualifiers: Tear current or old: current Encounter type: subsequent encounter Meniscus tear of knee type: complex Laterality: right Qualified Code(s): S83.231D - Complex tear of medial meniscus, current injury, right knee, subsequent encounter (2) Lateral meniscus tear: Status: Acute Qualifiers: Tear current or old: current Encounter type: subsequent encounter Meniscus tear of knee type: peripheral Laterality: right Qualified Code(s): S83.261D - Peripheral tear of lateral meniscus, current injury, right knee, subsequent encounter (3) Right knee DJD: Status: Acute Qualifiers: Osteoarthritis type: primary Qualified Code(s): M17.11 - Unilateral primary osteoarthritis, right knee Plan Patient is here today for MRI review of her right knee. Discussed with patient that she does have a medial and lateral meniscus tear along with arthritis of her knee. Spoke with patient that she also has some bone infarct but it is nothing to be concerned about. Spoke with patient that I would recommend doing a knee arthroscopy to treat the meniscus tear. We will need clearance from her area forester. Spoke with patient that doing the arthroscopy it can flare up the arthritis. Reviewed the pre-operative plans with the patient. Risks and benefits of the procedure were fully explained, including but not limited to infection, neurovascular injury, continued pain, arthritis, stiffness, need for further surgery, re-injury, DVT, PE, general risks of anesthesia, and loss of limb or life. The patient understands all the risks and does wish to proceed with written consent. Patient wishes to proceed with surgery. Follow up for 2 weeks post-op or sooner if pain, swelling, numbness or associated symptoms, or concerns develop. All questions answered. Patient in agreement of plan. Clinical Quality Measures Falls Risk Screening/Assistive Devices Have you fallen in the past year?: Yes (September) 12/06/23 1340 <Electronically signed by Henri Camacho DO> Date Henri Martinignalana Signature: Date I have examined the patient and the H&P has been reviewed. There are no clinical changes since date of exam. (if applicable)
[2024-01-18] MEDS: Clindamycin 900 MG/50 ML BAG 75 MG IV (07:25)
[2024-01-18] MEDS: Epinephrine (1 mg/ml) 1 MG/ML VIAL (08:02)
[2024-01-18] MEDS: Bupivacaine 0.25% 30 ML Vial (08:10)
--- NOTE | 2024-01-18 08:15 | PCM.OPRPT ---
Operative Report (Standard) Operative Information Surgery/Procedure Performed: right total knee arthroplasty Surgeon: Henri Camacho Date of Procedure: 01/18/24 Procedure Start Time: 07:51 Procedure Stop Time: 08:20 Pre-Operative Diagnosis: right knee djd medial and lateral meniscus tear Post-Operative Diagnosis: same Select all DRAINS/GRAFTS/IMPLANTS that apply: None Type of Anesthesia: General Estimated Blood Loss: 1 Specimen collected: No Description of surgery: Preop diagnosis: Right knee DJD medial lateral meniscus tear Postoperative diagnosis: Horizontal tear posterior horn medial meniscus anterior and body tear lateral meniscus grade III chondromalacia approaching grade 4 medial compartment areas of grade 3 patellofemoral mostly grade 2 lateral compartment Procedure: Right knee arthroscopic partial medial partial lateral meniscectomy Anesthesia: General Estimated blood loss: 5 mL Tourniquet time: 29 minutes 300 mmHg Complications: none Indication for procedure: 63-year-old female patient who has had ongoing painful mechanical symptoms after a fall MRI demonstrating medial lateral meniscus tear the patient did wish to proceed with an elective arthroscopic surgery to attempt to alleviate the symptoms. Risk benefits and alternatives of the procedure were reviewed including risk of bleeding infection nerve artery tissue damage need for further surgery continued pain and expected postoperative course. Procedure: The patient was met in the preoperative holding area. The operative extremity was identified by both patient and physician and family and marked. Patient was brought back to the operating room on a wheeled cart and transferred to the operating table in the supine position. Anesthesia was started. A well-padded tourniquet was placed on the operative extremity. A lower extremity leg radford was secured to the operative extremity. The contralateral extremity was well-padded and the end of the bed was flexed to 90 degrees. The patient was prepped and draped in the usual sterile fashion. A timeout was called to ensure the proper patient, procedure, and extremity were being contemplated. 0.5% Marcaine with epinephrine was injected into the planned incisional areas under the skin only. An Esmarch was used to exsanguinate the extremity and the tourniquet was inflated. An 11 blade scalpel was used to make a stab incision in the anterior lateral portal. The arthroscope was inserted into the intercondylar notch and inflow and outflow tubes were attached. Arthroscopic visualization began. The medial compartment was entered. An 18-gauge spinal needle was used to establish the placement for anterior medial portal. An 11 blade scalpel was used to make a stab incision. Blunt probe was inserted followed by a meniscal probe. The medial compartment was found to have degenerative changes of the cartilage grade 3 throughout the medial femoral condyle and some areas of the medial tibial plateau there was a degenerative horizontal appearing tear of the body of the medial meniscus with the use of arthroscopic rocio and biters a partial medial meniscectomy was performed the ACL was to be degenerative appearing but intact. The lateral compartment was entered there is noted to be diffuse grade 2 softening and fibrillation and an anterior and body tear of the lateral meniscus with the use of a arthroscopic shaver partial lateral meniscectomy was performed the arthroscope was switched to the medial portal to complete the procedure. The medial and lateral gutters were inspected and were free of loose bodies. The patellofemoral joint was inspected and had grade 3 cartilage wear and some areas particularly the patellar apex and trochlea. There was good patellar tracking. The knee was thoroughly irrigated and drained. An intra-articular injection with 5 cc 0.5% Marcaine plain and 40 mg of Depo-Medrol was injected intra-articularly. The arthroscope was removed the portals were closed with 3-0 nylon arthroscopic stitches. Followed by Xeroform 4 x 4's ABDs web roll and an Surjit wrap. The tourniquet was let down and the drapes were removed. All counts were correct. The patient was brought back to the PACU in stable condition. Surgical Findings: Medial and lateral meniscus tear DJD Entry Level Marketing Representative tower equipment installer: Yes Insurance Claims Processor: Royce Delacruz Tasks completed by first grade teacher: Closing Complications Complications: No
[2024-01-18] MEDS: Bupiv/Epi 0.25% 30 ML Vial (08:16)
[2024-01-18] MEDS: MethylPREDNISolone Acetate 40 MG/ML Vial (08:17)
--- NOTE | 2024-01-18 08:19 | DCINST_ITS ---
Discharge Instructions Diet Discharge Diet: No restrictions Dressing / Incision Call your doctor if you observe: Shortness of breath and Chest pain Additional Dressing/Incision Instructions:: Ice and elevate next 72 hours .keep dressing on clean and dry for 48 hours then may remove begin showering daily but do not submerge in tub or pool. After shower may apply Band-Aids . Encourage knee range of motion weightbearing as tolerated, use crutches until confident in knee then may discontinue. No strenuous activity. When not ambulating keep iced and elevated next 72 hours. Do not mix pain medication with recreational drugs or alcohol only take as prescribed can be addictive and abusive, call with any questions or concerns. Follow Up Care Please Follow Up With: Henri Camacho DO When: 2 weeks Test Results: Test results from this visit will be discussed in further detail at your follow- up appointment, if applicable. Discharge Plan Admission Primary Reason for Your Visit: Right knee arthroscopy Attending Provider: Henri Camacho Primary Care Provider: Mala Mcgrath Instructions Print Language: Sami Discharge Orders/Prescriptions Prescriptions: New acetaminophen 500 mg tablet 1,000 mg PO Q6H PRN (Reason: fever or pain) Qty: 60 0RF oxycodone 5 mg tablet 5 - 10 mg PO Q6H PRN (Reason: pain) 7 Days Qty: 30 0RF Continued nitroglycerin 0.4 mg tablet, sublingual 0.4 mg sublingual Q5-15M PRN (Reason: chest pain) Qty: 25 6RF Rx Instructions: do not exceed 3 doses per episode cyclobenzaprine 10 mg tablet 10 mg PO TID PRN (Reason: muscle spasm) Qty: 30 0RF galantamine 8 mg capsule,ext rel. pellets 24 hr 8 mg PO QAM Qty: 30 0RF Rx Instructions: administer with breakfast Nurtec ODT 75 mg tablet,disintegrating 75 mg PO DAILY PRN (Reason: migraine headache) Qty: 16 5RF cholecalciferol (vitamin D3) 1,250 mcg (50,000 unit) capsule 1,250 mcg PO QWEEK Qty: 4 5RF mirtazapine 7.5 mg tablet 7.5 mg PO QHS Qty: 30 1RF hyoscyamine sulfate 0.125 mg tablet 0.125 mg PO BID-QID PRN (Reason: dyspepsia) hydroxyzine HCl 25 mg tablet 25 mg PO TID PRN (Reason: nausea and vomiting) duloxetine 60 mg capsule,delayed release(DR/EC) 60 mg PO BID aspirin 81 mg tablet,delayed release (DR/EC) 81 mg PO DAILY (DME) Dexcom G6 Quality Assurance Supervisor Final Misc See Rx Instructions .ROUTE .MEDSUPPLY Rx Instructions: As directed diphenoxylate-atropine [Lomotil] 2.5-0.025 mg tablet 1 tab PO TID PRN (Reason: diarrhea) buprenorphine HCl 150 mcg film 150 mcg buccal Q12H metoprolol tartrate 25 mg tablet 75 mg PO BID Rx Instructions: 25 mg orally take with a 50 mg tablet twice a day to = 75 mg twice a day; duloxetine 60 mg capsule,delayed release(DR/EC) 60 mg PO DAILY valacyclovir 500 mg tablet 1,000 mg PO DAILY PRN (Reason: HSV) lamotrigine 200 mg tablet 200 mg PO DAILY albuterol sulfate 90 mcg/actuation HFA aerosol inhaler 2 puff INHALATION BID PRN (Reason: SOB) dicyclomine 10 mg Capsule 10 mg PO BID 30 Days Qty: 60 0RF benzonatate 200 mg capsule 200 mg PO DAILY PRN (Reason: cough) Arthritis Pain Compound 0 click topical TID Qty: 0 0RF clopidogrel 75 mg tablet 75 mg PO DAILY Qty: 90 3RF Rx Instructions: TAKE 1 TABLET BY MOUTH EVERY DAY pantoprazole [Protonix] 40 mg tablet,delayed release (DR/EC) 40 mg PO BID Qty: 60 11RF (DME) Omnipod 5 G6 Pods (Gen 5) Cartridge See Rx Instructions .Route Qty: 45 1RF Rx Instructions: 1 pod q 48 hours atorvastatin 80 mg tablet 80 mg PO QHS Qty: 90 3RF Patient Comments: cholesterol (DME) Dexcom G6 Sensor Device See Rx Instructions .Route Qty: 9 1RF Rx Instructions: As directed isosorbide dinitrate 30 mg tablet 30 mg PO BID Qty: 60 11RF fluticasone propionate [Flonase Allergy Relief] 50 mcg/actuation spray,suspension 2 spray intranasal DAILY Qty: 16 3RF Rx Instructions: administer into each nostril pregabalin 75 mg capsule 75 mg PO QHS Qty: 30 0RF Referrals / Follow Up: Mala Mcgrath MD [Primary Care Provider] - Disposition Disposition (needs filled in before D/C Order can be placed): Home, Self Care
[2024-01-18 09:30] LABS: Bedside Glucose 228 mg/dL (74-106)
--- NOTE | 2024-01-18 09:38 | PCM.POST.ANE ---
Anesthesia: Postop Eval I Current Vital Signs Temperature: 98.9 F Pulse Rate: 85 Blood Pressure: 154/65 Respiratory Rate: 16 Pulse Ox: 98 Oxygen Delivery Method: Room Air Assessment Airway patent: Yes Spontaneous unlabored respirations: Yes Mental status: Awake and Calm nausea: No Vomiting: No Anesthesia Complication: No Fluid Hydration Crystalloid volume administer (ml): 600 Total IV fluid infused: 600 Progress Note Anesthesia document: Postop Eval 1 completed: Yes
--- NOTE | 2024-01-18 09:40 | POSTOPAN2_ITS ---
Anesthesia Postop Eval I Sum Postop Eval Completion status Anesthesia document: Postop Eval 1 completed: Yes Anesthesia Postop Eval I Summary Anesthesia Postop Eval I Summary: Anesthesia Postop Eval I: Assessment Summary Airway patent Yes 01/18/24 09:39 MUSIC EDUCATOR.[email or web address] Spontaneous unlabored Yes 01/18/24 09:39 MUSIC EDUCATOR.[email or web address] respirations Mental status Awake,Calm 01/18/24 09:39 MUSIC EDUCATOR.[email or web address] nausea No 01/18/24 09:39 MUSIC EDUCATOR.[email or web address] Vomiting No 01/18/24 09:39 MUSIC EDUCATOR.[email or web address] Anesthesia Postop Eval I: Fluid Summary Crystalloid volume administer 600 01/18/24 09:39 MUSIC [email or web address].[email or web address] (ml) Colloids volume administered ( ml) Blood Product volume administered (ml) Total IV fluid infused 600 01/18/24 09:39 MUSIC EDUCATOR.NALLELYLOU Anesthesia Postop Eval I: Summary Notes Anesthesia Complication No 01/18/24 09:39 MUSIC EDUCATOR.[email or web address] Anesthesia Complication Comment: Post-operative progress note Anesthesia: Postop Eval II Evaluation Mental status: Awake and Calm Pain Level: 1 nausea: No Vomiting: No Complications Anesthesia Complication: No
--- NOTE | 2024-01-18 09:40 | PCM.POSTANE2 ---
Anesthesia Postop Eval I Sum Postop Eval Completion status Anesthesia document: Postop Eval 1 completed: Yes Anesthesia Postop Eval I Summary Anesthesia Postop Eval I Summary: Anesthesia Postop Eval I: Assessment Summary Airway patent Yes 01/18/24 09:39 SECURITY SUPPORT ANALYST.[email or web address] Spontaneous unlabored Yes 01/18/24 09:39 SECURITY SUPPORT ANALYST.[email or web address] respirations Mental status Awake,Calm 01/18/24 09:39 SECURITY SUPPORT ANALYST.[email or web address] nausea No 01/18/24 09:39 SECURITY SUPPORT ANALYST.[email or web address] Vomiting No 01/18/24 09:39 SECURITY SUPPORT ANALYST.[email or web address] Anesthesia Postop Eval I: Fluid Summary Crystalloid volume administer 600 01/18/24 09:39 SECURITY SUPPORT ANALYST.JBLOU (ml) Colloids volume administered ( ml) Blood Product volume administered (ml) Total IV fluid infused 600 01/18/24 09:39 SECURITY SUPPORT ANALYST.[email or web address] Anesthesia Postop Eval I: Summary Notes Anesthesia Complication No 01/18/24 09:39 SECURITY SUPPORT ANALYST.TODD Anesthesia Complication Comment: Post-operative progress note Anesthesia: Postop Eval II Evaluation Mental status: Awake and Calm Pain Level: 1 nausea: No Vomiting: No Complications Anesthesia Complication: No
== END 2024-01-18 10:03 | disposition home or self-care (01) ==
LOC: SDC 05:36 → AC 05:37
PROVIDERS: PCP Internal Medicine; Referring Provider Orthopaedic Surgery; Visit Provider Orthopaedic Surgery
PROC: (CPT 29870; principal; 2024-01-18 07:10)
DX: S83.231A Complex tear of medial meniscus, current injury, right knee, initial encounter (principal); M06.9 Rheumatoid arthritis, unspecified; N18.4 Chronic kidney disease, stage 4 (severe); I13.0 Hypertensive heart and chronic kidney disease with heart failure and stage 1 through stage 4 chronic kidney disease, or unspecified chronic kidney disease; I50.32 Chronic diastolic (congestive) heart failure; J44.9 Chronic obstructive pulmonary disease, unspecified; K51.90 Ulcerative colitis, unspecified, without complications; E11.22 Type 2 diabetes mellitus with diabetic chronic kidney disease; E11.43 Type 2 diabetes mellitus with diabetic autonomic (poly)neuropathy; E11.42 Type 2 diabetes mellitus with diabetic polyneuropathy; Z79.4 Long term (current) use of insulin; Z88.1 Allergy status to other antibiotic agents; M17.11 Unilateral primary osteoarthritis, right knee; M22.41 Chondromalacia patellae, right knee; S83.261A Peripheral tear of lateral meniscus, current injury, right knee, initial encounter; X58.XXXA Exposure to other specified factors, initial encounter; K31.84 Gastroparesis; K75.81 Nonalcoholic steatohepatitis (NASH); F41.8 Other specified anxiety disorders; D47.2 Monoclonal gammopathy; E66.9 Obesity, unspecified; E55.9 Vitamin D deficiency, unspecified; E78.00 Pure hypercholesterolemia, unspecified; L40.9 Psoriasis, unspecified; K21.9 Gastro-esophageal reflux disease without esophagitis; I25.10 Atherosclerotic heart disease of native coronary artery without angina pectoris; G25.0 Essential tremor; G47.33 Obstructive sleep apnea (adult) (pediatric); M51.379 Other intervertebral disc degeneration, lumbosacral region without mention of lumbar back pain or lower extremity pain; M47.816 Spondylosis without myelopathy or radiculopathy, lumbar region; Z88.0 Allergy status to penicillin; Z88.2 Allergy status to sulfonamides; Z95.1 Presence of aortocoronary bypass graft; Z68.31 Body mass index [BMI] 31.0-31.9, adult; Z90.49 Acquired absence of other specified parts of digestive tract; Z96.41 Presence of insulin pump (external) (internal); Z79.82 Long term (current) use of aspirin; Z79.02 Long term (current) use of antithrombotics/antiplatelets; Z79.899 Other long term (current) drug therapy; Z87.891 Personal history of nicotine dependence; Z96.642 Presence of left artificial hip joint
CPT/HCPCS: 29880; 01400; 82962; J7120; J2405

== ENCOUNTER → 2024-02-01 | Outpatient (CLI) | payer MEDICARE, MEDICAID, SELFPAY ==
[2023-10-27 12:02] VITALS: BMI 30.9
--- NOTE | 2024-02-01 13:20 | RAD_ITS ---
EXAM: XR BONE SURVEY, COMPLETE CLINICAL INDICATION: MGUS; right femur lesion TECHNIQUE: Multiple views of the bones of the axial and appendicular skeleton. COMPARISON: No relevant prior studies available. FINDINGS: BONES/JOINTS: There is a questionable 1.4 x 0.4 cm elliptical lucent lesion in the proximal right femoral shaft. The total left hip prosthesis. SOFT TISSUES: Unremarkable. TUBES, LINES AND DEVICES: Right-sided Port-A-Cath is in place with the distal tip overlying the superior vena cava. RAD/Bone Survey Comp(Axial&Append) IMPRESSION: Questionable lucent lesion in the proximal right femoral shaft. No other bony abnormalities are identified. There is a left hip prosthesis. Electronically Signed: Rip Buchanan MD at 8:53 EST ,
== END | disposition home or self-care (01) ==
LOC: RAD 13:13
PROVIDERS: PCP Internal Medicine; Referring Provider Nurse Practitioner Family; Visit Provider Nurse Practitioner Family
DX: D47.2 Monoclonal gammopathy (principal)
CPT/HCPCS: 77075

== ENCOUNTER 2024-02-17 14:37 | Observation (INO) | payer MEDICARE, MEDICAID, SELFPAY ==
[2023-10-27 12:02] VITALS: BMI 30.9
[2024-02-17] VITALS (12 sets, daily range): BP systolic 154–162; BP diastolic 61–97; PULSE 63–77; RESP 13–23; TEMP 36–36.8; O2SAT 94–99; BMI 33.9; BMI 31.8
--- NOTE | 2024-02-17 14:51 | EKG12_ITS ---
Test Reason : CP Blood Pressure : */* mmHG Vent. Rate : 70 BPM Atrial Rate : 70 BPM P-R Int : 186 ms QRS Dur : 94 ms QT Int : 394 ms P-R-T Axes : 14 -28 149 degrees QTcB Int : 425 ms Normal sinus rhythm Left ventricular hypertrophy with repolarization abnormality ( R in aVL , [place] product ) Abnormal ECG Confirmed by CHLOÉ DOMINGUEZ, AL ([id number]), telegraph editor ISABELLA BUTLER ([id number]) on 02/23/2024 1:19:41 PM Referred By: VIRGEN/GISELA Confirmed By: AL LUEVANO MD
--- NOTE | 2024-02-17 15:20 | RAD_ITS ---
HISTORY: chest pain. TECHNIQUE: XR Chest 2 Views. COMPARISON: 09/22/2023. FINDINGS: CARDIOMEDIASTINAL BORDERS: Cardiac silhouette within normal limits in size. Mediastinal contour also unchanged with right chest wall port catheter tip at the level of the distal superior vena cava and midline sternotomy. LUNGS: Mild linear opacities in the right lung base. PLEURA: No pleural effusion or pneumothorax seen. OSSEOUS STRUCTURES: Mild degenerative change. RAD/Chest PA and Lateral IMPRESSION: Mild right lower lobe atelectasis or inflammation. Electronically Signed: Azalea Oliveira MD at 15:42 EST ,
[2024-02-17 15:23] LABS: Absolute Lymphocyte Count 2.88 X10^3/uL (0.83-4.51); Absolute Neutrophil Count 5.4 X10^3/uL (2.0-7.7); Basophil# 0.07 X10^3/uL; Basophil% 0.7 % (0-1); Eosinophil# 0.39 X10^3/uL; Eosinophils% 4.2 % (0-5); Hematocrit 43.1 % (37-47); Hemoglobin 13.3 g/dL (12.0-15.0); Lymphocyte # 2.88 X10^3/ul (0.83-4.51); Lymphocyte % 30.7 % (19-41); Mean Corp Hgb Conc 30.9 g/dL (32-36); Mean Corpuscular Hgb 26.7 pg (27.0-32.0); Mean Corpuscular Volume 86.5 fL (81-99); Mean Platelet Vol. 11.7 fl (6.2-12.0); Monocyte% 6.4 % (0-10); NRBC Flagged by Analyzer 0 % (0-5); Neutrophil # 5.35 X10^3/uL (2.7-7.7); Neutrophil % 56.9 % (47-70); Platelet Count 197 K/mm3 (150-450); RBC Distribution Width CV 16.2 % (11.6-14.6); RBC Distribution Width SD 50.1 fl (35.1-43.9); Red Blood Count 4.98 M/mm3 (4.2-5.4); White Blood Count 9.4 K/mm3 (4.4-11.0)
--- NOTE | 2024-02-17 15:26 | ED.VIS.CHEST ---
HPI <ROBERT Rajput - Last Filed: 02/17/24 19:21> History of Present Illness Chief Complaint: Chest Pain Narrative Narrative: Patient presenting today with midsternal chest pressure that started around 10 AM this morning. She reports that the pain now radiates to her left arm. She notices her pain is worse with exertion. She was at her pain management appointment who she sees for chronic back pain and they recommended she come in for evaluation. She has a PMH of a CABG and 11 cardiac stents. She underwent a cardiac catheterization in January 2018. She had a stress test in September of this year which was unremarkable, her echo in September showed a LVEF of 55%. She denies any history of blood clots but does report that she had a meniscal surgery about a month ago. She denies any recent illness, fevers, chills. PE Risk Factors: Positive for Recent Travel/Surgery; Negative for Prior DVT or PE PFSH <ROBERT Rajput - Last Filed: 02/17/24 19:21> [facility] Medical History (Updated 02/17/24 @ 19:21 by ROBERT Rajput) MGUS (monoclonal gammopathy of unknown significance) Dehydration Falls Hypoxic respiratory failure Hypercapnic respiratory failure Fatigue Low back pain Abnormality of gait and mobility Polyneuropathy Insulin pump titration Presence of insulin pump Health care maintenance Essential tremor Dementia History of stress test Fungal dermatitis Herpes genitalia Encounter for insertion of venous access port Post-menopausal Rash Back pain Arthritis Ambulates with cane History of renal disease High cholesterol Dietary restriction History of pain when walking History of echocardiogram Chronic kidney disease (CKD) stage G4/A2, severely decreased glomerular filtration rate (GFR) between 15-29 mL/min/1.73 square meter and albuminuria creatinine ratio between 30-299 mg/g Chronic kidney disease (CKD) stage G4/A1, severely decreased glomerular filtration rate (GFR) between 15-29 mL/min/1.73 square meter and albuminuria creatinine ratio less than 30 mg/g Ingrown toenail Neuropathy Hyperglycemia due to diabetes mellitus Frequent falls Tremor Depression Chronic pain Rheumatoid arthritis Congestive heart failure (CHF) Lumbar spondylosis Greater trochanteric bursitis CKD (chronic kidney disease) stage 3, GFR 30-59 ml/min Malaise and fatigue Vitamin B12 deficiency History of CAD (coronary artery disease) Memory loss Anxiety and depression Degenerative disc disease at L5-S1 level CAD (coronary artery disease) Cellulitis, abdominal wall Left shoulder pain Gastroparesis Vitamin D deficiency Acute kidney injury CKD (chronic kidney disease), stage IV High output ileostomy Elevated anti-tissue transglutaminase (tTG) IgA level Ileostomy present Short bowel syndrome Loss of hearing Wears glasses History of COVID-19 Anxiety Insulin dependent diabetes mellitus Walker as ambulation aid Fatty liver Migraine headache Hx of diabetic gastroparesis Gastric reflux Former smoker BiPAP (biphasic positive airway pressure) dependence Hypertension Cardiology follow-up encounter Myoclonic jerking Chronic narcotic use Avascular necrosis of bone of left hip Chronic back pain Non-alcoholic fatty liver disease Liver mass Ulcerative colitis Nonalcoholic steatohepatitis Chronic respiratory failure Smoking greater than 20 pack years Obesity Chronic respiratory failure with hypoxia, on home O2 therapy Diabetic gastroparesis Secondary pulmonary arterial hypertension Chronic diastolic (congestive) heart failure Type 2 diabetes mellitus with diabetic polyneuropathy BMI 31.0-31.9,adult Depression with anxiety Arthritis Menieres disease Hyperlipidemia Psoriasis Obstructive sleep apnea COPD (chronic obstructive pulmonary disease) FCHL (familial combined hyperlipidemia) DM2 (diabetes mellitus, type 2) Home Medications ?Medication ?Instructions ?Recorded ?Last Taken ?Type blood-glucose meter,continuous 11/15/21 Unknown History (Dexcom G6 Laundry Assistant) nitroglycerin 0.4 mg sublingual 0.4 mg sublingual Q5-15M PRN chest 11/20/21 Unknown Rx tablet pain #25 tabs cyclobenzaprine 10 mg tablet 10 mg PO TID PRN muscle spasm #30 02/24/23 04/30/23 Rx tabs pantoprazole 40 mg tablet,delayed 40 mg PO BID GERD #60 tabs 04/29/23 02/17/24 Rx release (Protonix) albuterol sulfate 90 mcg/actuation 2 puff inhalation BID PRN SOB 05/01/23 02/17/24 History aerosol inhaler lamotrigine 200 mg tablet 200 mg PO DAILY mood 05/01/23 02/17/24 History dicyclomine 10 mg capsule 10 mg PO BID stomach 30 days #60 05/03/23 02/17/24 Rx caps diphenoxylate-atropine 2.5 1 tab PO TID PRN diarrhea 06/21/23 09/04/23 History mg-0.025 mg tablet (Lomotil) insulin pump cart,automated,BT #45 ea 07/14/23 Unknown Rx (Omnipod 5 G6 Pods (Gen 5) subcutaneous cartridge) atorvastatin 80 mg tablet 80 mg PO QHS CHOLESTEROL LOWERING 07/22/23 02/16/24 Rx #90 tabs buprenorphine HCl 150 mcg buccal 150 mcg buccal Q12H pain 08/04/23 02/17/24 History film aspirin 81 mg tablet,delayed 81 mg PO DAILY heart health 08/16/23 02/17/24 History release metoprolol tartrate 25 mg tablet 75 mg PO BID bp 09/18/23 02/17/24 History benzonatate 200 mg capsule 200 mg PO DAILY PRN cough 09/22/23 Unknown History rimegepant 75 mg disintegrating 75 mg PO DAILY PRN migraine 10/29/23 Unknown Rx tablet (Nurtec ODT) headache #16 tabs blood-glucose sensor (Dexcom G6 #9 ea 12/07/23 Unknown Rx Sensor device) isosorbide dinitrate 30 mg tablet 30 mg PO BID heart #60 tabs 12/08/23 02/17/24 Rx duloxetine 60 mg capsule,delayed 60 mg PO BID 12/23/23 02/17/24 History release hyoscyamine sulfate 0.125 mg tablet 0.125 mg PO BID-QID PRN dyspepsia 12/23/23 Unknown History mirtazapine 7.5 mg tablet 7.5 mg PO QHS #30 tabs 12/23/23 02/16/24 Rx fluticasone propionate 50 2 spray intranasal DAILY #16 grams 01/04/24 02/17/24 Rx mcg/actuation nasal spray,suspension (Flonase Allergy Relief) bupropion HCl 75 mg tablet 75 mg PO BID #60 tabs 02/01/24 02/17/24 Rx galantamine 16 mg 24 hr 16 mg PO QDAY 02/01/24 02/17/24 History capsule,extended release clopidogrel 75 mg tablet 75 mg PO DAILY #28 TABLETS 02/02/24 02/17/24 Rx cholestyramine (with sugar) 4 gram 1 ea PO BID 02/17/24 02/17/24 History powder for susp in a packet insulin lispro 200 unit/mL (3 mL) 1 sliding scale dose subcut ACHS 02/17/24 02/17/24 History subcutaneous pen (Humalog KwikPen U-200 Insulin) melatonin 5 mg tablet 5 mg PO QHS PRN sleep 02/17/24 Unknown History metoprolol tartrate 50 mg tablet 50 mg PO BID 02/17/24 02/17/24 History pregabalin 75 mg capsule 75 mg PO DAILY 02/17/24 02/17/24 History triamcinolone acetonide 0.1 % 1 applic topical DAILY PRN 02/17/24 Unknown History topical ointment psoriasis Allergy/AdvReac Type Severity Reaction Status Date / Time cinnamon (Cinnamon) Allergy Severe Anaphylaxis Verified 02/01/24 14:53 Influenza Virus Vaccines Allergy Severe Shortness Verified 02/01/24 14:53 of breath liraglutide (From Victoza) Allergy Severe Anaphylaxis Verified 02/01/24 14:53 ciprofloxacin Allergy Intermediate Swelling Verified 02/01/24 14:53 metformin (From Glucophage) Allergy Mild Nausea Verified 02/01/24 14:53 metronidazole (From Flagyl) Allergy Hives Verified 02/01/24 14:53 Metronidazole HCl (From Allergy Hives Verified 02/01/24 14:53 Flagyl) Penicillins Allergy Hives Verified 02/01/24 14:53 Sulfa (Sulfonamide Allergy Hives Verified 02/01/24 14:53 Antibiotics) aripiprazole (From Abilify) AdvReac hallucinati Verified 02/01/24 14:53 ons metformin HCl (From AdvReac Nausea Verified 02/01/24 14:53 Glucophage) ranolazine AdvReac Nausea/Vom/ Verified 02/01/24 14:53 Diarrhea Yjlwobe-GIR-RjH Reductase AdvReac Nausea/joints Verified 02/01/24 14:53 Inhibitor (Phtvurr-Qvx-Byt ache Reductase Inhibitor) Family History Mother CVA (cerebral vascular accident) Diabetes Brother Heart disease of CAD at 65 Myocardial infarction Pancreatitis Father Cancer lymphomia Lymphoma Grandmother Myocardial infarction of [place] in her 70s Sister COPD (chronic obstructive pulmonary disease) Surgical History History of vascular access device History of colonoscopy History of esophagogastroduodenoscopy (EGD) History of appendectomy History of coronary artery stent placement H/O total hip arthroplasty Status post total hip replacement, left History of cardiac catheterization History of History of cholecystectomy H/O coronary artery bypass surgery (05/18/12) History of coronary artery stent placement (01/12/18) H/O sinus surgery history closed fissure Ileostomy status H/O colectomy left thumb surgery H/O total hysterectomy ileostomy Social History (Updated 02/17/24 @ 15:17 by Mallory Queen) household members: spouse and none Smoking Status: Former smoker quit date: 03/08/12 how long ago did patient quit smoking: quit in 2012; 0.5-1ppd x 30yrs alcohol intake: never substance use type: does not use diet: diabetic caffeine: No eating out: 1-3 times/week what type of physical activity do you participate in: none seatbelt use: always do you feel safe at home: Yes ROS <ROBERT Rajput - Last Filed: 02/17/24 19:21> ROS ED Constitutional Constitutional ED: Denies chills or fever(s) Cardiovascular Cardiovascular: Reports chest pain; Denies palpitations Respiratory/Chest Respiratory/Chest: Reports dyspnea Gastrointestinal Gastrointestinal: Denies abdominal pain, nausea or vomiting Musculoskeletal Musculoskeletal: Denies arthralgias or myalgias Integumentary Denies rash Neurologic Neurologic: Denies weakness EXAM <ROBERT Rajput - Last Filed: 02/17/24 19:21> Physical Exam Const Vital Signs: 02/17/24 14:38 02/17/24 15:16 02/17/24 15:37 Temperature 97 F L Temperature Source Temporal Pulse Rate 69 66 Respiratory Rate 22 H 14 Blood Pressure 157/66 H Blood Pressure Mean 96 Pulse Ox 99 96 97 Oxygen Delivery Method Room Air Room Air 02/17/24 16:11 02/17/24 16:15 02/17/24 17:00 Temperature Temperature Source Pulse Rate 67 63 Respiratory Rate 20 H 15 15 Blood Pressure 159/97 H 162/69 H 156/68 H Blood Pressure Mean 112 94 97 Pulse Ox 96 97 98 Oxygen Delivery Method Room Air 02/17/24 18:00 Temperature Temperature Source Pulse Rate 68 Respiratory Rate 13 Blood Pressure 161/72 H Blood Pressure Mean 97 Pulse Ox Oxygen Delivery Method Positive well nourished, well developed and no apparent distress General Appearance ED: well developed HEENT Reports normocephalic and head/scalp atraumatic Mouth ED: Yes moist mucous membranes normal Eyes PERRL and EOMs intact bilaterally Neck full ROM and supple Chest Wall inspection of chest normal Resp normal respiratory effort and clear to auscultation bilaterally Cardio regular rate and regular rhythm GI soft to palpation, non-tender, non-distended and no masses Back/Spine normal ROM and normal to inspection Extremity normal to inspection and full ROM Neuro oriented x3, CN's II-XII intact bilaterally, moves all extremities, no focal motor deficits and no sensory deficits noted Sensorium / Orientation: awake and alert Psych mental status grossly normal and thought process normal Skin no rashes or lesions noted and no wounds <Dr. Burton Chavez DO - Last Filed: 02/18/24 00:22> Physical Exam Const Vital Signs: 02/17/24 14:38 02/17/24 15:16 02/17/24 15:37 Temperature 97 F L Temperature Source Temporal Pulse Rate 69 66 Respiratory Rate 22 H 14 Blood Pressure 157/66 H Blood Pressure Mean 96 Pulse Ox 99 96 97 Oxygen Delivery Method Room Air Room Air 02/17/24 16:11 02/17/24 16:15 02/17/24 17:00 Temperature Temperature Source Pulse Rate 67 63 Respiratory Rate 20 H 15 15 Blood Pressure 159/97 H 162/69 H 156/68 H Blood Pressure Mean 112 94 97 Pulse Ox 96 97 98 Oxygen Delivery Method Room Air 02/17/24 18:00 Temperature Temperature Source Pulse Rate 68 Respiratory Rate 13 Blood Pressure 161/72 H Blood Pressure Mean 97 Pulse Ox Oxygen Delivery Method <ROBERT Rajput - Last Filed: 02/17/24 19:21> Heart Score History: Moderately Suspicious ECG: Normal Age: >/= 65 years Risk Factors: >/= 3 Risk Factors or History of CAD Troponin: </= Normal Limit Score: 5 <Dr. Burton Chvaez DO - Last Filed: 02/18/24 00:22> Heart Score Score: 5 MDM <ROBERT Rajput - Last Filed: 02/17/24 19:21> [facility] Narrative Medical decision making narrative: Patient resenting today with midsternal chest pressure/pain that radiates to the left arm that started around 10 AM this morning. She reports that the pain is constant. She does have a significant cardiac history. She follows with Dr. Menon. Labs obtained. Her CBC is unremarkable, initial potassium is 6.2 but this was hemolyzed, repeat potassium is normal. Her creatinine is 2.06, BUN 39, this is consistent with previous labs. Nonsignificant delta troponin. Age-adjusted D-dimer within normal limits and is consistent with previous labs. Patient does have a moderate heart score. I did discuss her care with Dr. Castro who recommends admission to the hospital for likely repeat stress test. I spoke with the hospitalist regarding admission, patient admitted in stable condition. Lab Data Attestation: I reviewed the patient's lab results. Labs: Laboratory Results - last 24 hr 02/17/24 02/17/24 02/17/24 15:00 15:58 17:22 WBC 9.4 RBC 4.98 Hgb 13.3 Hct 43.1 MCV 86.5 MCH 26.7 L MCHC 30.9 L RDW Std Deviation 50.1 H RDW Coeff of Jan 16.2 H Plt Count 197 MPV 11.7 Immature Gran % (Auto) 1.100 H Neut % (Auto) 56.9 Lymph % (Auto) 30.7 [place] % (Auto) 6.4 Eos % (Auto) 4.2 Baso % (Auto) 0.7 Absolute Neuts (auto) 5.4 Absolute Lymphs (auto) 2.88 Nucleated RBC % 0 D-Dimer Quant (PE/DVT) 0.51 H* Sodium 137 Potassium 6.2 H* 4.7 Chloride 114 H Carbon Dioxide 20.0 L Anion Gap 3 L BUN 39 H Creatinine 2.06 H Est GFR (MDRD) Af Amer 31 L Est GFR (MDRD) Non-Af 26 L BUN/Creatinine Ratio 18.9 Glucose 134 H Calcium 10.0 Troponin I High Sens 13 15 Radiography Diagnostic Testing: Clinical Impression(s) from Imaging Studies Chest X-Ray 02/17/24 15:20 IMPRESSION: Mild right lower lobe atelectasis or inflammation. Electronically Signed: Azalea Oliveira MD at 15:42 EST , EKG Initial EKG: Comments: 70 bpm, normal sinus rhythm, no ST elevation, T wave inversions leads V2, V3, V4 V5, interpreted by attending ED physician <Dr. Burton Chavez, DO - Last Filed: 02/18/24 00:22> [facility] MDM Narrative Medical decision making narrative: Patient resenting today with midsternal chest pressure/pain that radiates to the left arm that started around 10 AM this morning. She reports that the pain is constant. She does have a significant cardiac history. She follows with Dr. Menon. Labs obtained. Her CBC is unremarkable, initial potassium is 6.2 but this was hemolyzed, repeat potassium is normal. Her creatinine is 2.06, BUN 39, this is consistent with previous labs. Nonsignificant delta troponin. Age-adjusted D-dimer within normal limits and is consistent with previous labs. Patient does have a moderate heart score. I did discuss her care with Dr. Castro who recommends admission to the hospital for likely repeat stress test. I spoke with the hospitalist regarding admission, patient admitted in stable condition. Supervisory Physician Note Patient was seen and examined with the Advanced Practice Provider. Nursing notes and vital signs have been reviewed. Pertinent old records have been reviewed. I agree with the essential elements of the GARRET's history, physical exam, assessment, and plan. The differential diagnosis and management options were discussed with the GARRET. I participated in determining and agree with the management, procedures, final impression and disposition as documented. See changes noted by me. Please see addendum or separate note for any additional details. 63-year-old female with significant cardiac history presents for evaluation of chest pain that radiates down her left arm. Pain is described as pressure. Pain worse with exertion. On reviewing cardiology documentation as well as medical record, patient's last cardiac catheterization was in 2017. History of CABG and stents. Stress test in September negative for ischemia. Echo showed EF of 61%. Recent surgery. Denies bilateral lower extremity swelling or pain. Denies shortness of breath. Gen: A&O x3, NAD Head: Normocephalic, atraumatic Eyes: No sclera icterus, conjunctiva clear ENT: Moist mucous membranes Neck: Trachea midline, No JVD CV: RRR, no murmurs, no peripheral edema Resp: Lungs CTA BL, no w/r/c GI: Abd soft, non-distended, non-tender, no r/r/g Musc: Full ROM, no deformity Skin: Warm, dry Neuro: Alert, oriented, grossly intact, sensation intact Psych: Cooperative, appropriate mood and affect Given patient's significant cardiac history, concern is for ACS. Cardiac workup ordered. EKG was personally reviewed and interpreted by myself, normal sinus rhythm. Heart rate 70. Chest x-ray personally reviewed and interpreted by myself without pneumothorax, cardiomegaly, effusion, pneumonia. CBC without leukocytosis or anemia. D-dimer elevated at 0.51 however is negative for age adjustment. On chart review this also seems to be her baseline dimer. BMP shows baseline renal insufficiency. Troponin unremarkable x 2. Patient's heart score is moderate and with her extensive cardiac history, cardiology was contacted. Patient admitted. Impression: 1. Chest pain, rule out ACS 2. Renal insufficiency Lab Data Labs: Laboratory Results - last 24 hr 02/17/24 02/17/24 02/17/24 15:00 15:58 17:22 WBC 9.4 RBC 4.98 Hgb 13.3 Hct 43.1 MCV 86.5 MCH 26.7 L MCHC 30.9 L RDW Std Deviation 50.1 H RDW Coeff of Jan 16.2 H Plt Count 197 MPV 11.7 Immature Gran % (Auto) 1.100 H Neut % (Auto) 56.9 Lymph % (Auto) 30.7 [place] % (Auto) 6.4 Eos % (Auto) 4.2 Baso % (Auto) 0.7 Absolute Neuts (auto) 5.4 Absolute Lymphs (auto) 2.88 Nucleated RBC % 0 D-Dimer Quant (PE/DVT) 0.51 H* Sodium 137 Potassium 6.2 H* 4.7 Chloride 114 H Carbon Dioxide 20.0 L Anion Gap 3 L BUN 39 H Creatinine 2.06 H Est GFR (MDRD) Af Amer 31 L Est GFR (MDRD) Non-Af 26 L BUN/Creatinine Ratio 18.9 Glucose 134 H Calcium 10.0 Troponin I High Sens 13 15 Radiography Diagnostic Testing: Clinical Impression(s) from Imaging Studies Chest X-Ray 02/17/24 15:20 IMPRESSION: Mild right lower lobe atelectasis or inflammation. Electronically Signed: Azalea Oliveira MD at 15:42 EST Reading Location ID and State: [facility] / [place] Tel , Service support , Discharge Plan Dx/Rx/DC Orders Clinical Impression: Chest pain, CAD (coronary artery disease) Disposition Disposition: Acute Care Hospital [facility] Discharge Date/Time: 02/17/24 20:28
[2024-02-17 15:31] LABS: D-Dimer Quantitative (DVT/PE) 0.51 FEU/ug/m (0.27-0.49)
[2024-02-17 15:48] LABS: Anion Gap 3 (5-15); BUN 39 mg/dL (7-18); BUN/Creat Ratio 18.9 RATIO (10-20); Chloride 114 mmol/L (98-107); Creatinine, Serum 2.06 mg/dL (0.55-1.02); EST Glomerular Filtration Rate 26 mL/min (>60); Est Glom Filt Rate - Afr Amer 31 mL/min (>60); Glucose 134 mg/dL (74-106); Potassium 6.2 mmol/L (3.5-5.1); Sodium Level 137 mmol/L (136-145); Troponin-I HS (w/2H Reflex) 13 pg/mL (3.0-54.0)
[2024-02-17 16:13] LABS: Potassium 4.7 mmol/L (3.5-5.1)
[2024-02-17 17:04] LABS: Reflex Troponin-HS? (from REC) Y
[2024-02-17 17:46] LABS: Troponin-I HS 15 pg/mL (3.0-54.0)
--- NOTE | 2024-02-17 19:14 | PCM.HP.STD ---
HPI - General General Date of Admission: 02/17/24 Date of Service: 02/17/24 Chief Complaint: Chest pain HPI Narrative ASHLEY MÉNDEZ, is a 63 F who presents to the emergency room at [facility] with complaints of precordial chest pain which she describes as pressure-like in nature that started at 10 AM this morning after she woke up from sleep. She stated that at times the chest pain went down her left arm. The chest pain has been continuous since 10 AM this morning. She has an extensive cardiac history including stents and bypass surgery. Workup in the emergency room included an EKG which revealed normal sinus rhythm without evidence of acute ischemia, cardiac enzymes were normal x 2, CBC was unremarkable, initial chemistry panel revealed a potassium of 6.2, potassium was repeated and came back 4.7. Patient's creatinine was elevated at 2.06 and BUN was 39. Cardiology was contacted and the case was discussed with the on-call floor sanding machine operator, he recommended the patient have a repeat stress test-she had 1 done the end of September of this year which was negative. I talked to him for a few minutes also and I brought up the possibility of doing a heart catheterization on her tomorrow but he preferred to go with the cardiac stress test first to outline any areas that he might need to address if he did the heart cath. Patient was placed in observation status on PCU for chest pain, she will be seen in consultation by cardiology and undergo a resting nuclear pharmacological stress test tomorrow. Cardiac enzymes will be cycled. [facility] Medical History (Updated 02/17/24 @ 19:21 by ROBERT Rajput) MGUS (monoclonal gammopathy of unknown significance) Dehydration Falls Hypoxic respiratory failure Hypercapnic respiratory failure Fatigue Low back pain Abnormality of gait and mobility Polyneuropathy Insulin pump titration Presence of insulin pump Health care maintenance Essential tremor Dementia History of stress test Fungal dermatitis Herpes genitalia Encounter for insertion of venous access port Post-menopausal Rash Back pain Arthritis Ambulates with cane History of renal disease High cholesterol Dietary restriction History of pain when walking History of echocardiogram Chronic kidney disease (CKD) stage G4/A2, severely decreased glomerular filtration rate (GFR) between 15-29 mL/min/1.73 square meter and albuminuria creatinine ratio between 30-299 mg/g Chronic kidney disease (CKD) stage G4/A1, severely decreased glomerular filtration rate (GFR) between 15-29 mL/min/1.73 square meter and albuminuria creatinine ratio less than 30 mg/g Ingrown toenail Neuropathy Hyperglycemia due to diabetes mellitus Frequent falls Tremor Depression Chronic pain Rheumatoid arthritis Congestive heart failure (CHF) Lumbar spondylosis Greater trochanteric bursitis CKD (chronic kidney disease) stage 3, GFR 30-59 ml/min Malaise and fatigue Vitamin B12 deficiency History of CAD (coronary artery disease) Memory loss Anxiety and depression Degenerative disc disease at L5-S1 level CAD (coronary artery disease) Cellulitis, abdominal wall Left shoulder pain Gastroparesis Vitamin D deficiency Acute kidney injury CKD (chronic kidney disease), stage IV High output ileostomy Elevated anti-tissue transglutaminase (tTG) IgA level Ileostomy present Short bowel syndrome Loss of hearing Wears glasses History of COVID-19 Anxiety Insulin dependent diabetes mellitus Walker as ambulation aid Fatty liver Migraine headache Hx of diabetic gastroparesis Gastric reflux Former smoker BiPAP (biphasic positive airway pressure) dependence Hypertension Cardiology follow-up encounter Myoclonic jerking Chronic narcotic use Avascular necrosis of bone of left hip Chronic back pain Non-alcoholic fatty liver disease Liver mass Ulcerative colitis Nonalcoholic steatohepatitis Chronic respiratory failure Smoking greater than 20 pack years Obesity Chronic respiratory failure with hypoxia, on home O2 therapy Diabetic gastroparesis Secondary pulmonary arterial hypertension Chronic diastolic (congestive) heart failure Type 2 diabetes mellitus with diabetic polyneuropathy BMI 31.0-31.9,adult Depression with anxiety Arthritis Menieres disease Hyperlipidemia Psoriasis Obstructive sleep apnea COPD (chronic obstructive pulmonary disease) FCHL (familial combined hyperlipidemia) DM2 (diabetes mellitus, type 2) Home Medications ?Medication ?Instructions ?Recorded ?Last Taken ?Type blood-glucose meter,continuous 11/15/21 Unknown History (Dexcom G6 Esl Instructional Assistant) nitroglycerin 0.4 mg sublingual 0.4 mg sublingual Q5-15M PRN chest 11/20/21 Unknown Rx tablet pain #25 tabs cyclobenzaprine 10 mg tablet 10 mg PO TID PRN muscle spasm #30 02/24/23 04/30/23 Rx tabs pantoprazole 40 mg tablet,delayed 40 mg PO BID GERD #60 tabs 04/29/23 02/17/24 Rx release (Protonix) albuterol sulfate 90 mcg/actuation 2 puff inhalation BID PRN SOB 05/01/23 02/17/24 History aerosol inhaler lamotrigine 200 mg tablet 200 mg PO DAILY mood 05/01/23 02/17/24 History dicyclomine 10 mg capsule 10 mg PO BID stomach 30 days #60 05/03/23 02/17/24 Rx caps diphenoxylate-atropine 2.5 1 tab PO TID PRN diarrhea 06/21/23 09/04/23 History mg-0.025 mg tablet (Lomotil) insulin pump cart,automated,BT #45 ea 07/14/23 Unknown Rx (Omnipod 5 G6 Pods (Gen 5) subcutaneous cartridge) atorvastatin 80 mg tablet 80 mg PO QHS CHOLESTEROL LOWERING 07/22/23 02/16/24 Rx #90 tabs buprenorphine HCl 150 mcg buccal 150 mcg buccal Q12H pain 08/04/23 02/17/24 History film aspirin 81 mg tablet,delayed 81 mg PO DAILY heart health 08/16/23 02/17/24 History release metoprolol tartrate 25 mg tablet 75 mg PO BID bp 09/18/23 02/17/24 History benzonatate 200 mg capsule 200 mg PO DAILY PRN cough 09/22/23 Unknown History rimegepant 75 mg disintegrating 75 mg PO DAILY PRN migraine 10/29/23 Unknown Rx tablet (Nurtec ODT) headache #16 tabs blood-glucose sensor (Dexcom G6 #9 ea 12/07/23 Unknown Rx Sensor device) isosorbide dinitrate 30 mg tablet 30 mg PO BID heart #60 tabs 12/08/23 02/17/24 Rx duloxetine 60 mg capsule,delayed 60 mg PO BID 12/23/23 02/17/24 History release hyoscyamine sulfate 0.125 mg tablet 0.125 mg PO BID-QID PRN dyspepsia 12/23/23 Unknown History mirtazapine 7.5 mg tablet 7.5 mg PO QHS #30 tabs 12/23/23 02/16/24 Rx fluticasone propionate 50 2 spray intranasal DAILY #16 grams 01/04/24 02/17/24 Rx mcg/actuation nasal spray,suspension (Flonase Allergy Relief) bupropion HCl 75 mg tablet 75 mg PO BID #60 tabs 02/01/24 02/17/24 Rx galantamine 16 mg 24 hr 16 mg PO QDAY 02/01/24 02/17/24 History capsule,extended release clopidogrel 75 mg tablet 75 mg PO DAILY #28 TABLETS 02/02/24 02/17/24 Rx cholestyramine (with sugar) 4 gram 1 ea PO BID 02/17/24 02/17/24 History powder for susp in a packet insulin lispro 200 unit/mL (3 mL) 1 sliding scale dose subcut ACHS 02/17/24 02/17/24 History subcutaneous pen (Humalog KwikPen U-200 Insulin) melatonin 5 mg tablet 5 mg PO QHS PRN sleep 02/17/24 Unknown History metoprolol tartrate 50 mg tablet 50 mg PO BID 02/17/24 02/17/24 History pregabalin 75 mg capsule 75 mg PO DAILY 02/17/24 02/17/24 History triamcinolone acetonide 0.1 % 1 applic topical DAILY PRN 02/17/24 Unknown History topical ointment psoriasis Allergy/AdvReac Type Severity Reaction Status Date / Time cinnamon (Cinnamon) Allergy Severe Anaphylaxis Verified 02/01/24 14:53 Influenza Virus Vaccines Allergy Severe Shortness Verified 02/01/24 14:53 of breath liraglutide (From Victoza) Allergy Severe Anaphylaxis Verified 02/01/24 14:53 ciprofloxacin Allergy Intermediate Swelling Verified 02/01/24 14:53 metformin (From Glucophage) Allergy Mild Nausea Verified 02/01/24 14:53 metronidazole (From Flagyl) Allergy Hives Verified 02/01/24 14:53 Metronidazole HCl (From Allergy Hives Verified 02/01/24 14:53 Flagyl) Penicillins Allergy Hives Verified 02/01/24 14:53 Sulfa (Sulfonamide Allergy Hives Verified 02/01/24 14:53 Antibiotics) aripiprazole (From Abilify) AdvReac hallucinati Verified 02/01/24 14:53 ons metformin HCl (From AdvReac Nausea Verified 02/01/24 14:53 Glucophage) ranolazine AdvReac Nausea/Vom/ Verified 02/01/24 14:53 Diarrhea Tqizvyg-[id number]-HnB Reductase AdvReac Nausea/joints Verified 02/01/24 14:53 Inhibitor (Hkcafbm-Ujy-Gdj ache Reductase Inhibitor) Family History Mother CVA (cerebral vascular accident) Diabetes Brother Heart disease of CAD at 65 Myocardial infarction Pancreatitis Father Cancer lymphomia Lymphoma Grandmother Myocardial infarction of [place] in her 70s Sister COPD (chronic obstructive pulmonary disease) Surgical History History of vascular access device History of colonoscopy History of esophagogastroduodenoscopy (EGD) History of appendectomy History of coronary artery stent placement H/O total hip arthroplasty Status post total hip replacement, left History of cardiac catheterization History of History of cholecystectomy H/O coronary artery bypass surgery (05/18/12) History of coronary artery stent placement (01/12/18) H/O sinus surgery history closed fissure Ileostomy status H/O colectomy left thumb surgery H/O total hysterectomy ileostomy Social History (Updated 02/17/24 @ 15:17 by Mallory Queen) household members: spouse and none Smoking Status: Former smoker quit date: 03/08/12 how long ago did patient quit smoking: quit in 2012; 0.5-1ppd x 30yrs alcohol intake: never substance use type: does not use diet: diabetic caffeine: No eating out: 1-3 times/week what type of physical activity do you participate in: none seatbelt use: always do you feel safe at home: Yes ROS Constitutional Constitutional: Denies anorexia, change in weight, chills, fatigue, fever(s), night sweats or weakness Eyes Eyes: Denies blurry vision, change in vision, discharge from eye(s) or eye pain Cardiovascular Cardiovascular: Reports chest pain; Denies claudication, dyspnea on exertion, edema or palpitations Respiratory/Chest Respiratory/Chest: Denies cough, dyspnea, hemoptysis, shortness of breath at rest or shortness of breath with exertion Gastrointestinal Gastrointestinal: Denies abdominal pain, constipation, diarrhea, hematemesis, hematochezia, melena, nausea or vomiting Genitourinary Genitourinary: Denies dysuria, hematuria, urinary frequency, urinary hesitancy, urinary incontinence or urinary urgency Musculoskeletal Musculoskeletal: Denies back pain, joint pain, joint stiffness, joint swelling, myalgias or neck pain Neurologic Neurologic: Denies abnormal gait, abnormal speech, dizziness, focal weakness, headache(s), loss of vision, numbness, other visual disturbances, paresthesias, syncope or tingling Psychiatric Psychiatric: Denies anxiety, cognitive impairment, depression, irritability, mood swings or suicidal ideation Endocrine Endocrinology: Denies change in body appearance, cold intolerance, excessive sweating, heat intolerance, polydipsia or polyuria Hematologic/Lymphatic Hematologic/Lymphatic: Denies none, anemia, easy bleeding, easy bruising or lymphadenopathy Allergic/Immunologic Allergic/Immunologic: Denies rhinitis, urticaria, eczemia or asthma Vital Signs Vital Signs Vital Signs: 02/17/24 14:38 02/17/24 15:16 02/17/24 15:37 Temperature 97 F L Temperature Source Temporal Pulse Rate 69 66 Respiratory Rate 22 H 14 Blood Pressure 157/66 H Blood Pressure Mean 96 Pulse Ox 99 96 97 Oxygen Delivery Method Room Air Room Air 02/17/24 16:11 02/17/24 16:15 02/17/24 17:00 Temperature Temperature Source Pulse Rate 67 63 Respiratory Rate 20 H 15 15 Blood Pressure 159/97 H 162/69 H 156/68 H Blood Pressure Mean 112 94 97 Pulse Ox 96 97 98 Oxygen Delivery Method Room Air 02/17/24 18:00 02/17/24 19:00 02/17/24 19:13 Temperature 98.3 F Temperature Source Pulse Rate 68 68 68 Respiratory Rate 13 17 17 Blood Pressure 161/72 H 154/66 H 154/66 H Blood Pressure Mean 97 92 95 Pulse Ox 97 97 Oxygen Delivery Method Weight Weight: 98.3 kg Body Mass Index (BMI) 33.9 Physical Exam Const alert, oriented x3, no apparent distress and healthy appearing General Appearance: cooperative, well kempt and well developed Orientation / Consciousness: awake, oriented to person, oriented to place and oriented to time HEENT normocephalic, head/scalp atraumatic, hearing grossly normal bilaterally and moist oral mucous membranes Eyes PERRL, EOMs intact bilaterally and conjunctivae normal Neck supple, no JVD, thyroid normal and no carotid bruits General: trachea midline Resp normal respiratory effort, no retractions, no use of accessory muscles and clear to auscultation bilaterally Auscultation: Negative for rales, rhonchi or wheezes Cardio regular rate, regular rhythm, S1 normal heart sound, S2 normal heart sound, no murmurs, no rub and no gallops GI normal to inspection, nondistended, normoactive bowel sounds, soft to palpation, non-tender and non-distended Extremity no clubbing, cyanosis or edema Skin no rashes or lesions noted General Skin Exam: no breakdown Neuro oriented x3, CN's II-XII intact bilaterally, moves all extremities, no focal motor deficits and no sensory deficits noted Sensorium / Orientation: awake and alert Speech: speech normal Psych affect normal Results Lab / Micro Data 02/17/24 15:00 02/17/24 15:58 Labs: Laboratory Results - last 24 hr 02/17/24 15:00: WBC 9.4, RBC 4.98, Hgb 13.3, Hct 43.1, MCV 86.5, MCH 26.7 L, MCHC 30.9 L, RDW Std Deviation 50.1 H, RDW Coeff of Jan 16.2 H, Plt Count 197, MPV 11.7, Immature Gran % (Auto) 1.100 H, Neut % (Auto) 56.9, Lymph % (Auto) 30.7, [place] % (Auto) 6.4, Eos % (Auto) 4.2, Baso % (Auto) 0.7, Absolute Neuts (auto) 5.4, Absolute Lymphs (auto) 2.88, Nucleated RBC % 0, D-Dimer Quant (PE/DVT) 0.51 H*, Sodium 137, Potassium 6.2 H*, Chloride 114 H, Carbon Dioxide 20.0 L, Anion Gap 3 L, BUN 39 H, Creatinine 2.06 H, Est GFR (MDRD) Af Amer 31 L, Est GFR (MDRD) Non-Af 26 L, BUN/Creatinine Ratio 18.9, Glucose 134 H, Calcium 10.0, Troponin I High Sens 13 02/17/24 15:58: Potassium 4.7 02/17/24 17:22: Troponin I High Sens 15 Imaging Radiology Impression Chest X-Ray 02/17/24 15:20 IMPRESSION: Mild right lower lobe atelectasis or inflammation. Electronically Signed: Azalea Oliveira MD at 15:42 EST Reading Location ID and State: [facility] / [place] Tel , Service support , Assessment & Plan Assessment/Plan (1) CAD (coronary artery disease): PLAN: Plan 1. Chest pain in a patient with known coronary artery disease-patient will be placed in observation status on PCU, she will be seen in consultation by cardiology, if her enzymes remain normal she will undergo a resting pharmacological nuclear stress test tomorrow. #2 type 2 diabetes-patient has an insulin pump, I wrote for her to be able to use it in the hospital and adjust her insulin dosage per her home protocol. #3 chronic kidney disease stage IIIb-complicates care, management, recovery, and prognosis, BMP will be repeated tomorrow morning #4 hyperlipidemia-patient is currently on cholestyramine, she is allergic to statins #5 monoclonal gammopathy of unknown significance-patient follows up with oncology as an outpatient, she is not currently receiving any treatment #6 chronic depression-patient is on antidepressants as an outpatient, these will be continued, she is also on Lamictal which will be continued Total clinical time spent by myself addressing the patient's medical issues, reviewing all of her data, and collaborating with patient's care team: 55 minutes Charges/Coding Visit Charges Inpatient E&M: 16166 Init Hosp L2
[2024-02-17 21:27] LABS: Troponin-I HS 11 pg/mL (3.0-54.0)
[2024-02-17 21:56] LABS: Bedside Glucose 149 mg/dL (74-106)
[2024-02-17] MEDS: DULoxetine Hcl 60 MG Capsule PO (23:15)
[2024-02-17] MEDS: Isosorbide DN 30 MG Tablet PO (23:15)
[2024-02-17] MEDS: Pantoprazole Sodium 40 MG Tablet PO (23:15)
[2024-02-17] MEDS: Metoprolol Tartrate 25 MG Tablet 75 MG PO (23:15)
[2024-02-17] MEDS: Atorvastatin Calcium 80 MG Tablet PO (23:16)
[2024-02-17] MEDS: Heparin Injection (Vial) 5,000 UNIT/ML VIAL 5000 UNIT SC (23:17)
[2024-02-17] MEDS: Galantamine Hydrobromide 4 MG Tablet PO (23:18)
[2024-02-17] MEDS: Mirtazapine 15 MG Tablet 7.5 MG PO (23:18)
[2024-02-17] MEDS: buPROPion 75 MG Tablet PO (23:20)
--- NOTE | 2024-02-17 23:39 | EKG12_ITS ---
Test Reason : CP ADMIT Blood Pressure : */* mmHG Vent. Rate : 71 BPM Atrial Rate : 71 BPM P-R Int : 188 ms QRS Dur : 92 ms QT Int : 386 ms P-R-T Axes : 43 -27 157 degrees QTcB Int : 419 ms Normal sinus rhythm Left ventricular hypertrophy with repolarization abnormality ( R in aVL , [place] product ) Abnormal ECG Confirmed by CHLOÉ DOMINGUEZ, AL ([id number]), acquisitions editor SHERMAN SEGOVIA ([id number]) on 02/23/2024 2:36:18 PM Referred By: DR KAUR Confirmed By: AL LUEVANO MD
[2024-02-18 03:00] VITALS: BP 109/52; PULSE 69; RESP 18; TEMP 36.1; O2SAT 100
--- NOTE | 2024-02-18 05:55 | EKG12_ITS ---
Test Reason : AM EKG Blood Pressure : */* mmHG Vent. Rate : 63 BPM Atrial Rate : 63 BPM P-R Int : 194 ms QRS Dur : 94 ms QT Int : 414 ms P-R-T Axes : 36 -28 160 degrees QTcB Int : 423 ms Normal sinus rhythm Left ventricular hypertrophy with repolarization abnormality ( R in aVL , [place] product ) Abnormal ECG Confirmed by CHLOÉ DOMINGUEZ, AL ([id number]), editorial manager SHERMAN SEGOVIA ([id number]) on 02/23/2024 2:35:12 PM Referred By: Confirmed By: AL LUEVANO MD
[2024-02-18 06:08] LABS: Anion Gap 5 (5-15); BUN 36 mg/dL (7-18); BUN/Creat Ratio 20.6 RATIO (10-20); Calcium,Total 9.3 mg/dL (8.5-10.1); Chloride 112 mmol/L (98-107); Creatinine, Serum 1.75 mg/dL (0.55-1.02); EST Glomerular Filtration Rate 31 mL/min (>60); Est Glom Filt Rate - Afr Amer 37 mL/min (>60); Estimated Creatinine Clearance 37.38 ml/min; Glucose 149 mg/dL (74-106); Potassium 4.1 mmol/L (3.5-5.1); Sodium Level 140 mmol/L (136-145)
[2024-02-18] MEDS: 0.9% Saline Lock 10 ML Syringe IV ×2 (06:13→15:20)
[2024-02-18] MEDS: Aspirin E.C. 81 MG Tablet PO (06:13)
[2024-02-18] MEDS: Clopidogrel Bisulfate 75 MG Tablet PO (06:13)
[2024-02-18 06:58] LABS: Bedside Glucose 132 mg/dL (74-106)
[2024-02-18 09:00] VITALS: BP 154/64; PULSE 89; RESP 17; TEMP 36.6; O2SAT 99
[2024-02-18] MEDS: buPROPion 75 MG Tablet PO (09:37)
[2024-02-18] MEDS: Heparin Injection (Vial) 5,000 UNIT/ML VIAL 5000 UNIT SC (09:37)
[2024-02-18] MEDS: Isosorbide DN 30 MG Tablet PO (09:37)
[2024-02-18] MEDS: Pregabalin 75 MG Capsule PO (09:37)
[2024-02-18 09:38] VITALS: PULSE 89
[2024-02-18] MEDS: lamoTRIgine 100 MG Tablet 200 MG PO (09:38)
[2024-02-18] MEDS: Galantamine Hydrobromide 4 MG Tablet PO ×2 (09:38→14:56)
[2024-02-18] MEDS: Metoprolol Tartrate 25 MG Tablet 75 MG PO (09:38)
[2024-02-18] MEDS: Pantoprazole Sodium 40 MG Tablet PO (09:38)
[2024-02-18] MEDS: DULoxetine Hcl 60 MG Capsule PO (09:38)
[2024-02-18] MEDS: Buprenorphine 15 MCG PATCH.TDWK 1 PATCH TD (10:23)
--- NOTE | 2024-02-18 11:24 | STRESSREP ---
Stress Test Report Date: 02/18/2024 Procedure: Pharmacologic stress nuclear imaging study Indications: Chest pain Consent: Per the patient Procedure: The patient underwent pharmacologic (Regadenoson) evaluation with a peak heart rate of 82 beats per minute (52%predicted maximal heart rate) and a peak blood pressure of 162/90 mmHg. The baseline ECG demonstrated normal sinus rhythm, diffuse ST depressions and T wave inversions which are chronic. EKG during lexiscan infusion revealed no significant ischemic changes. EKG post infusion revealed no significant ischemic changes [There were no cardiac dysrhythmias pretest, during pharmacologic infusion, or recovery]. [There was no complaint of chest discomfort during pharmacologic infusion or recovery]. The examination was discontinued secondary to completion of protocol. Impression: 1. Lexiscan stress test test is negative for Lexiscan infusion induced EKG changes of ischemia. 2. Lexiscan stress test test is negative for Lexiscan infusion induced chest pain. 3. Results of the nuclear portion of the test is as below Myocardial perfusion imaging study: Technique: The patient was injected with 12 millicuries of technetium 99m Cardiolite and subsequently rest SPECT Cardiolite nuclear imaging was obtained in the horizontal long, vertical long, and short axis views. The patient underwent pharmacologic [Regadenoson 0.4mg] evaluation. Please see above for details. The patient was injected with 36 millicuries of technetium 99m Cardiolite and subsequently stress SPECT Cardiolite nuclear imaging was obtained in the horizontal long, vertical long, and short axis views. A gated Cardiolite study at peak stress was obtained. Interpretation: Rest and stress SPECT Cardiolite nuclear imaging status post realignment, normalization, and attenuation correction demonstrate no evidence of significant ischemia or infarction. Gated images reveal no significant regional wall motion abnormalities. The reported LVEF is 69%. Impression: 1. There is no evidence of significant ischemia or infarction. 2. Estimated ejection fraction is 69%. This note was generated with [employer] software. It may contain incorrect words, spelling, and punctuation that were not noted in checking the note before signing.
[2024-02-18] MEDS: Insulin Bolus Pump 1 UNIT SC (11:32)
--- NOTE | 2024-02-18 11:34 | PCM.CONS.C ---
Assessment & Plan Assessment/Plan (1) Chest pain: QUALIFIERS: Chest pain type: unspecified Qualified Code(s): R07.9 - Chest pain, unspecified PLAN: This could be anginal in etiology. However patient had 1 episode after several months/years. Her stress test was negative for significant ischemia. She does have underlying CAD that could have caused the angina. Her troponin was negative. She does have underlying CKD. I think it is reasonable to add Ranexa to patient's regimen and follow-up with us as an outpatient. If she continues to have anginal symptoms then we could consider coronary angiography. Risks and benefits of this approach were discussed with the patient in detail. Patient prefers this approach as well. (2) CAD (coronary artery disease): QUALIFIERS: Coronary Disease-Associated Artery/Lesion type: unspecified vessel or lesion type [place] vs. transplanted heart: [place] heart Associated angina: unspecified whether angina present Qualified Code(s): I25.10 - Atherosclerotic heart disease of [place] coronary artery without angina pectoris HPI Consult Data Date of Consult: 02/18/24 HPI Narrative HPI Narrative: ASHLEY MÉNDEZ, is a 63 F who presents with retrosternal pressure-like chest pain. Patient has had similar chest pain in the past when she required stents. This time she has not had chest pain for a long time and had 1 episode yesterday. This episode lasted all day yesterday. Her troponin was negative and the Lexiscan stress test done today reveals preserved EF and no evidence of significant ischemia. Patient is currently chest pain-free. She does complain of dysuria and lower abdominal cramps and feels she may have a UTI. She is otherwise asymptomatic from a cardiac standpoint. She does have a history of coronary artery disease dating back to 2004. It culminated in 2012 with a three-vessel coronary bypass graft with a JONES to the LAD, saphenous vein graft to the first diagonal, saphenous vein graft to the first obtuse marginal branch and saphenous vein graft to the posterior descending artery. She has had multiple stents since then. She also has a history of hypertension, hyperlipidemia, diabetes mellitus, ulcerative colitis and an ileostomy. In January 2018, she underwent a cardiac catheterization which demonstrated normal left ventricular systolic function, widely patent stents to the left anterior descending artery, diagonal vessel and nonobstructive in-stent stenosis of the mid obtuse marginal vessel, occluded saphenous vein graft to the diagonal vessel, obtuse marginal branch and left posterior descending artery, diffuse disease noted after the touchdown site of the JONES to the LAD. She underwent successful drug-eluting stent to the mid first diagonal branch with a 2.25 Promus Synergy drug-eluting stent. At the time, the plan was to consider PCI of the distal LAD if patient had symptoms despite maximal medical therapy. [facility] Medical History (Updated 02/18/24 @ 11:[address] Eliza Castro MD) MGUS (monoclonal gammopathy of unknown significance) Dehydration Falls Hypoxic respiratory failure Hypercapnic respiratory failure Fatigue Low back pain Abnormality of gait and mobility Polyneuropathy Insulin pump titration Presence of insulin pump Health care maintenance Essential tremor Dementia History of stress test Fungal dermatitis Herpes genitalia Encounter for insertion of venous access port Post-menopausal Rash Back pain Arthritis Ambulates with cane History of renal disease High cholesterol Dietary restriction History of pain when walking History of echocardiogram Chronic kidney disease (CKD) stage G4/A2, severely decreased glomerular filtration rate (GFR) between 15-29 mL/min/1.73 square meter and albuminuria creatinine ratio between 30-299 mg/g Chronic kidney disease (CKD) stage G4/A1, severely decreased glomerular filtration rate (GFR) between 15-29 mL/min/1.73 square meter and albuminuria creatinine ratio less than 30 mg/g Ingrown toenail Neuropathy Hyperglycemia due to diabetes mellitus Frequent falls Tremor Depression Chronic pain Rheumatoid arthritis Congestive heart failure (CHF) Lumbar spondylosis Greater trochanteric bursitis CKD (chronic kidney disease) stage 3, GFR 30-59 ml/min Malaise and fatigue Vitamin B12 deficiency History of CAD (coronary artery disease) Memory loss Anxiety and depression Degenerative disc disease at L5-S1 level CAD (coronary artery disease) Cellulitis, abdominal wall Left shoulder pain Gastroparesis Vitamin D deficiency Acute kidney injury CKD (chronic kidney disease), stage IV High output ileostomy Elevated anti-tissue transglutaminase (tTG) IgA level Ileostomy present Short bowel syndrome Loss of hearing Wears glasses History of COVID-19 Anxiety Insulin dependent diabetes mellitus Walker as ambulation aid Fatty liver Migraine headache Hx of diabetic gastroparesis Gastric reflux Former smoker BiPAP (biphasic positive airway pressure) dependence Hypertension Cardiology follow-up encounter Myoclonic jerking Chronic narcotic use Avascular necrosis of bone of left hip Chronic back pain Non-alcoholic fatty liver disease Liver mass Ulcerative colitis Nonalcoholic steatohepatitis Chronic respiratory failure Smoking greater than 20 pack years Obesity Chronic respiratory failure with hypoxia, on home O2 therapy Diabetic gastroparesis Secondary pulmonary arterial hypertension Chronic diastolic (congestive) heart failure Type 2 diabetes mellitus with diabetic polyneuropathy BMI 31.0-31.9,adult Depression with anxiety Arthritis Menieres disease Hyperlipidemia Psoriasis Obstructive sleep apnea COPD (chronic obstructive pulmonary disease) FCHL (familial combined hyperlipidemia) DM2 (diabetes mellitus, type 2) Home Medications ?Medication ?Instructions ?Recorded ?Last Taken ?Type blood-glucose meter,continuous 11/15/21 Unknown History (Dexcom [employer]) nitroglycerin 0.4 mg sublingual 0.4 mg sublingual Q5-15M PRN chest 11/20/21 Unknown Rx tablet pain #25 tabs cyclobenzaprine 10 mg tablet 10 mg PO TID PRN muscle spasm #30 02/24/23 04/30/23 Rx tabs pantoprazole 40 mg tablet,delayed 40 mg PO BID GERD #60 tabs 04/29/23 02/17/24 Rx release (Protonix) albuterol sulfate 90 mcg/actuation 2 puff inhalation BID PRN SOB 05/01/23 02/17/24 History aerosol inhaler lamotrigine 200 mg tablet 200 mg PO DAILY mood 05/01/23 02/17/24 History dicyclomine 10 mg capsule 10 mg PO BID stomach 30 days #60 05/03/23 02/17/24 Rx caps diphenoxylate-atropine 2.5 1 tab PO TID PRN diarrhea 06/21/23 09/04/23 History mg-0.025 mg tablet (Lomotil) insulin pump cart,automated,BT #45 ea 07/14/23 Unknown Rx (Omnipod 5 G6 Pods (Gen 5) subcutaneous cartridge) atorvastatin 80 mg tablet 80 mg PO QHS CHOLESTEROL LOWERING 07/22/23 02/16/24 Rx #90 tabs buprenorphine HCl 150 mcg buccal 150 mcg buccal Q12H pain 08/04/23 02/17/24 History film aspirin 81 mg tablet,delayed 81 mg PO DAILY heart health 08/16/23 02/17/24 History release metoprolol tartrate 25 mg tablet 75 mg PO BID bp 09/18/23 02/17/24 History benzonatate 200 mg capsule 200 mg PO DAILY PRN cough 09/22/23 Unknown History rimegepant 75 mg disintegrating 75 mg PO DAILY PRN migraine 10/29/23 Unknown Rx tablet (Nurtec ODT) headache #16 tabs blood-glucose sensor (Dexcom G6 #9 ea 12/07/23 Unknown Rx Sensor device) isosorbide dinitrate 30 mg tablet 30 mg PO BID heart #60 tabs 12/08/23 02/17/24 Rx duloxetine 60 mg capsule,delayed 60 mg PO BID 12/23/23 02/17/24 History release hyoscyamine sulfate 0.125 mg tablet 0.125 mg PO BID-QID PRN dyspepsia 12/23/23 Unknown History mirtazapine 7.5 mg tablet 7.5 mg PO QHS #30 tabs 12/23/23 02/16/24 Rx fluticasone propionate 50 2 spray intranasal DAILY #16 grams 01/04/24 02/17/24 Rx mcg/actuation nasal spray,suspension (Flonase Allergy Relief) bupropion HCl 75 mg tablet 75 mg PO BID #60 tabs 02/01/24 02/17/24 Rx galantamine 16 mg 24 hr 16 mg PO QDAY 02/01/24 02/17/24 History capsule,extended release clopidogrel 75 mg tablet 75 mg PO DAILY #28 TABLETS 02/02/24 02/17/24 Rx cholestyramine (with sugar) 4 gram 1 ea PO BID 02/17/24 02/17/24 History powder for susp in a packet insulin lispro 200 unit/mL (3 mL) 1 sliding scale dose subcut ACHS 02/17/24 02/17/24 History subcutaneous pen (Humalog KwikPen U-200 Insulin) melatonin 5 mg tablet 5 mg PO QHS PRN sleep 02/17/24 Unknown History metoprolol tartrate 50 mg tablet 50 mg PO BID 02/17/24 02/17/24 History pregabalin 75 mg capsule 75 mg PO DAILY 02/17/24 02/17/24 History triamcinolone acetonide 0.1 % 1 applic topical DAILY PRN 02/17/24 Unknown History topical ointment psoriasis Allergy/AdvReac Type Severity Reaction Status Date / Time cinnamon (Cinnamon) Allergy Severe Anaphylaxis Verified 02/01/24 14:53 Influenza Virus Vaccines Allergy Severe Shortness Verified 02/01/24 14:53 of breath liraglutide (From Victoza) Allergy Severe Anaphylaxis Verified 02/01/24 14:53 ciprofloxacin Allergy Intermediate Swelling Verified 02/01/24 14:53 metformin (From Glucophage) Allergy Mild Nausea Verified 02/01/24 14:53 metronidazole (From Flagyl) Allergy Hives Verified 02/01/24 14:53 Metronidazole HCl (From Allergy Hives Verified 02/01/24 14:53 Flagyl) Penicillins Allergy Hives Verified 02/01/24 14:53 Sulfa (Sulfonamide Allergy Hives Verified 02/01/24 14:53 Antibiotics) aripiprazole (From Abilify) AdvReac hallucinati Verified 02/01/24 14:53 ons metformin HCl (From AdvReac Nausea Verified 02/01/24 14:53 Glucophage) ranolazine AdvReac Nausea/Vom/ Verified 02/01/24 14:53 Diarrhea [id number] Reductase AdvReac Nausea/joints Verified 02/01/24 14:53 Inhibitor (Tgzwtkd-[id number]-Pqo ache Reductase Inhibitor) Family History Mother CVA (cerebral vascular accident) Diabetes Brother Heart disease of CAD at 65 Myocardial infarction Pancreatitis Father Cancer lymphomia Lymphoma Grandmother Myocardial infarction of [place] in her 70s Sister COPD (chronic obstructive pulmonary disease) Surgical History History of vascular access device History of colonoscopy History of esophagogastroduodenoscopy (EGD) History of appendectomy History of coronary artery stent placement H/O total hip arthroplasty Status post total hip replacement, left History of cardiac catheterization History of History of cholecystectomy H/O coronary artery bypass surgery (05/18/12) History of coronary artery stent placement (01/12/18) H/O sinus surgery history closed fissure Ileostomy status H/O colectomy left thumb surgery H/O total hysterectomy ileostomy Social History (Updated 02/17/24 @ 15:17 by Mallory Queen) household members: spouse and none Smoking Status: Former smoker quit date: 03/08/12 how long ago did patient quit smoking: quit in 2012; 0.5-1ppd x 30yrs alcohol intake: never substance use type: does not use diet: diabetic caffeine: No eating out: 1-3 times/week what type of physical activity do you participate in: none seatbelt use: always do you feel safe at home: Yes Physical Exam Const alert and oriented x3 HEENT normocephalic Eyes no scleral icterus Resp normal respiratory effort Psych mental status grossly normal Risk Stratification Risk Stratification Applicable: No Charges/Coding Visit Charges Inpatient E&M: 70939 Init Hosp L2 Objective Data Vital Signs: Vital Signs Temp Pulse Resp BP Pulse Ox O2 Del Method 97.8 F 89 17 154/64 H 99 Room Air 02/18/24 09:00 02/18/24 09:38 02/18/24 09:00 02/18/24 09:00 02/18/24 09:00 02/18/24 09:00 Oxygen Delivery Method Room Air Weight: 203 lb 7.787 oz Body Mass Index (BMI) 31.8 Lab / Micro Data 02/17/24 15:00 02/18/24 05:24 Labs: Laboratory Results - last 24 hr 02/17/24 15:00: WBC 9.4, RBC 4.98, Hgb 13.3, Hct 43.1, MCV 86.5, MCH 26.7 L, MCHC 30.9 L, RDW Std Deviation 50.1 H, RDW Coeff of Jan 16.2 H, Plt Count 197, MPV 11.7, Immature Gran % (Auto) 1.100 H, Neut % (Auto) 56.9, Lymph % (Auto) 30.7, [place] % (Auto) 6.4, Eos % (Auto) 4.2, Baso % (Auto) 0.7, Absolute Neuts (auto) 5.4, Absolute Lymphs (auto) 2.88, Nucleated RBC % 0, D-Dimer Quant (PE/DVT) 0.51 H*, Sodium 137, Potassium 6.2 H*, Chloride 114 H, Carbon Dioxide 20.0 L, Anion Gap 3 L, BUN 39 H, Creatinine 2.06 H, Est GFR (MDRD) Af Amer 31 L, Est GFR (MDRD) Non-Af 26 L, BUN/Creatinine Ratio 18.9, Glucose 134 H, Calcium 10.0, Troponin I High Sens 13 02/17/24 15:58: Potassium 4.7 02/17/24 17:22: Troponin I High Sens 15 02/17/24 20:45: POC Glucose 149 H 02/17/24 20:49: Troponin I High Sens 11 02/18/24 05:24: Sodium 140, Potassium 4.1, Chloride 112 H, Carbon Dioxide 23.0, Anion Gap 5, BUN 36 H, Creatinine 1.75 H, Estim Creat Clear Calc 37.38, Est GFR (MDRD) Af Amer 37 L, Est GFR (MDRD) Non-Af 31 L, BUN/Creatinine Ratio 20.6 H, Glucose 149 H, Calcium 9.3 02/18/24 06:10: POC Glucose 132 H Cardiology Labs/Tests 02/17/24 15:00: WBC 9.4, RBC 4.98, Hgb 13.3, Hct 43.1, MCV 86.5, MCH 26.7 L, MCHC 30.9 L, Plt Count 197, MPV 11.7, Immature Gran % (Auto) 1.100 H, Neut % (Auto) 56.9, Lymph % (Auto) 30.7, [place] % (Auto) 6.4, Eos % (Auto) 4.2, Baso % (Auto) 0.7, Absolute Neuts (auto) 5.4, Nucleated RBC % 0, D-Dimer Quant (PE/DVT) 0.51 H*, Sodium 137, Potassium 6.2 H*, Chloride 114 H, Carbon Dioxide 20.0 L, Anion Gap 3 L, BUN 39 H, Creatinine 2.06 H, Est GFR (MDRD) Af Amer 31 L, Est GFR (MDRD) Non-Af 26 L, BUN/Creatinine Ratio 18.9, Glucose 134 H, Calcium 10.0 02/17/24 15:58: Potassium 4.7 02/18/24 05:24: Sodium 140, Potassium 4.1, Chloride 112 H, Carbon Dioxide 23.0, Anion Gap 5, BUN 36 H, Creatinine 1.75 H, Est GFR (MDRD) Af Amer 37 L, Est GFR (MDRD) Non-Af 31 L, BUN/Creatinine Ratio 20.6 H, Glucose 149 H, Calcium 9.3 Rhythm: EKG: ECHO: Stress Test: Cardiac Cath: PCI: CT Surgery: Holter monitor: EPS: PPM: CXR: Chest CT Scan: Radiography Diagnostic Testing: Radiology Impression Chest X-Ray 02/17/24 15:20 IMPRESSION: Mild right lower lobe atelectasis or inflammation. Electronically Signed: Azalea Oliveira MD at 15:42 EST ,
[2024-02-18 11:51] LABS: Bedside Glucose 170 mg/dL (74-106)
--- NOTE | 2024-02-18 14:51 | PCM.DC.SUM ---
Providers Date of Admission: 02/17/24 Date of Discharge: 02/18/24 Primary Care Physician: Dr. Mala Mcgrath MD Consultations 02/17/24 20:40 Consult: Cardiology Routine Consulting Provider: Eliza Castro Reason for Consult: chest pain EMERGENT Consult: No MD Notified: Yes Date Notified: 02/17/24 Time Notified: 18:59 Method of Notification: Verbal Reason For Visit: CHEST PAIN Diagnosis Discharge Diagnosis (1) Chest pain: Status: Acute Code(s): R07.9 - Chest pain, unspecified Qualifiers: Chest pain type: unspecified Qualified Code(s): R07.9 - Chest pain, unspecified (2) CAD (coronary artery disease): Status: Acute Code(s): I25.10 - Atherosclerotic heart disease of [place] coronary artery without angina pectoris Qualifiers: Coronary Disease-Associated Artery/Lesion type: unspecified vessel or lesion type [place] vs. transplanted heart: [place] heart Associated angina: unspecified whether angina present Qualified Code(s): I25.10 - Atherosclerotic heart disease of [place] coronary artery without angina pectoris Medications at Discharge Home Medications blood-glucose meter,continuous (Dexcom G6 Staff Scientist) 11/15/21 nitroglycerin 0.4 mg sublingual tablet 0.4 mg sublingual Q5-15M PRN chest pain #25 tabs 11/20/21 cyclobenzaprine 10 mg tablet 10 mg PO TID PRN muscle spasm #30 tabs 02/24/23 pantoprazole 40 mg tablet,delayed release (Protonix) 40 mg PO BID GERD #60 tabs 04/29/23 albuterol sulfate 90 mcg/actuation aerosol inhaler 2 puff inhalation BID PRN SOB 05/01/23 lamotrigine 200 mg tablet 200 mg PO DAILY mood 05/01/23 dicyclomine 10 mg capsule 10 mg PO BID stomach 30 days #60 caps 05/03/23 diphenoxylate-atropine 2.5 mg-0.025 mg tablet (Lomotil) 1 tab PO TID PRN diarrhea 06/21/23 insulin pump cart,automated,BT (Omnipod 5 G6 Pods (Gen 5) subcutaneous cartridge) #45 ea 07/14/23 atorvastatin 80 mg tablet 80 mg PO QHS CHOLESTEROL LOWERING #90 tabs 07/22/23 buprenorphine HCl 150 mcg buccal film 150 mcg buccal Q12H pain 08/04/23 aspirin 81 mg tablet,delayed release 81 mg PO DAILY heart health 08/16/23 metoprolol tartrate 25 mg tablet 75 mg PO BID bp 09/18/23 benzonatate 200 mg capsule 200 mg PO DAILY PRN cough 09/22/23 rimegepant 75 mg disintegrating tablet (Nurtec ODT) 75 mg PO DAILY PRN migraine headache #16 tabs 10/29/23 blood-glucose sensor (Novapost G6 Sensor device) #9 ea 12/07/23 isosorbide dinitrate 30 mg tablet 30 mg PO BID heart #60 tabs 12/08/23 duloxetine 60 mg capsule,delayed release 60 mg PO BID 12/23/23 hyoscyamine sulfate 0.125 mg tablet 0.125 mg PO BID-QID PRN dyspepsia 12/23/23 mirtazapine 7.5 mg tablet 7.5 mg PO QHS #30 tabs 12/23/23 fluticasone propionate 50 mcg/actuation nasal spray,suspension (Flonase Allergy Relief) 2 spray intranasal DAILY #16 grams 01/04/24 bupropion HCl 75 mg tablet 75 mg PO BID #60 tabs 02/01/24 galantamine 16 mg 24 hr capsule,extended release 16 mg PO QDAY 02/01/24 clopidogrel 75 mg tablet 75 mg PO DAILY #28 TABLETS 02/02/24 cholestyramine (with sugar) 4 gram powder for susp in a packet 1 ea PO BID 02/17/24 insulin lispro 200 unit/mL (3 mL) subcutaneous pen (Humalog KwikPen U-200 Insulin) 1 sliding scale dose subcut ACHS 02/17/24 melatonin 5 mg tablet 5 mg PO QHS PRN sleep 02/17/24 metoprolol tartrate 50 mg tablet 50 mg PO BID 02/17/24 pregabalin 75 mg capsule 75 mg PO DAILY 02/17/24 triamcinolone acetonide 0.1 % topical ointment 1 applic topical DAILY PRN psoriasis 02/17/24 cefdinir 300 mg capsule 300 mg PO BID #10 caps 02/18/24 Hospital Course Operations None Procedures Nuclear stress test Summary of Care Provided Minutes Spent on Discharge: 45 Hospital Course: Patient is a 63-year-old female with past medical history as outlined was admitted through the ED on 02/17/2024 with a complaint of chest pain which was pressure-like and is started on the morning of admission. Started after she woke up from sleep. It radiated down her left arm. She did have an extensive cardiac history including stents and history of CABG. EKG showed no acute ST changes and troponins x 2 were negative. Initial labs were significant for potassium of 6.2 but on repeat came down to 4.7. Creatinine was 2.06 and BUN was 39. She was admitted to be managed for chest pain to rule out ACS. She did have a stress test done on 02/18/2024 which was negative for any evidence of ischemia. Cardiology recommended that patient be started. P.o. Ranexa 500 mg twice daily. However this was listed as an allergy and so per discussion with cardiology, decision was made to hold off on starting patient on Ranexa. Of note, patient also complained of burning with urination. She said this is usually what she felt when she had a urine infection. Urinalysis was ordered patient was unable to pass urine before she was discharged. Patient was therefore placed on p.o. cefdinir 300 mg twice daily for 5 days as empiric treatment for UTI. She is to follow-up with her primary care doctor within 1 week if her symptoms do not improve. She is also to follow-up with cardiology. Patient seen and examined prior to discharge. She felt much better and had no complaints. She had an uneventful night. Review of systems otherwise negative. Labs and vitals reviewed. Home medication reviewed and reconciled. Physical Exam Const alert, oriented x3 and no apparent distress General Appearance: cooperative and comfortable Orientation / Consciousness: awake Exam Limitations: no limitations HEENT normocephalic, head/scalp atraumatic, hearing grossly normal bilaterally and moist oral mucous membranes Mouth: oral and palatal mucosa normal Eyes PERRL, EOMs intact bilaterally and conjunctivae normal Neck no lymphadenopathy and supple Resp normal respiratory effort and no retractions Cardio regular rate, regular rhythm, S1 normal heart sound, S2 normal heart sound and no murmurs GI normal to inspection, nondistended, normoactive bowel sounds, soft to palpation, non-tender and non-distended Extremity normal to inspection, full ROM and no clubbing, cyanosis or edema Skin no rashes or lesions noted Neuro oriented x3, CN's II-XII intact bilaterally, moves all extremities and no focal motor deficits Sensorium / Orientation: awake and alert Motor Exam: strength 5/5 throughout Psych affect normal Weight / BMI Weight Weight: 203 lb 7.787 oz Body Mass Index (BMI) 31.8 ABG / Lab / Microbiology Data 02/17/24 15:00 02/18/24 05:24 Laboratory: Laboratory Results - last 24 hr 02/17/24 15:00: WBC 9.4, RBC 4.98, Hgb 13.3, Hct 43.1, MCV 86.5, MCH 26.7 L, MCHC 30.9 L, RDW Std Deviation 50.1 H, RDW Coeff of Jan 16.2 H, Plt Count 197, MPV 11.7, Immature Gran % (Auto) 1.100 H, Neut % (Auto) 56.9, Lymph % (Auto) 30.7, Moody % (Auto) 6.4, Eos % (Auto) 4.2, Baso % (Auto) 0.7, Absolute Neuts (auto) 5.4, Absolute Lymphs (auto) 2.88, Nucleated RBC % 0, D-Dimer Quant (PE/DVT) 0.51 H*, Sodium 137, Potassium 6.2 H*, Chloride 114 H, Carbon Dioxide 20.0 L, Anion Gap 3 L, BUN 39 H, Creatinine 2.06 H, Est GFR (MDRD) Af Amer 31 L, Est GFR (MDRD) Non-Af 26 L, BUN/Creatinine Ratio 18.9, Glucose 134 H, Calcium 10.0, Troponin I High Sens 13 02/17/24 15:58: Potassium 4.7 02/17/24 17:22: Troponin I High Sens 15 02/17/24 20:45: POC Glucose 149 H 02/17/24 20:49: Troponin I High Sens 11 02/18/24 05:24: Sodium 140, Potassium 4.1, Chloride 112 H, Carbon Dioxide 23.0, Anion Gap 5, BUN 36 H, Creatinine 1.75 H, Estim Creat Clear Calc 37.38, Est GFR (MDRD) Af Amer 37 L, Est GFR (MDRD) Non-Af 31 L, BUN/Creatinine Ratio 20.6 H, Glucose 149 H, Calcium 9.3 02/18/24 06:10: POC Glucose 132 H 02/18/24 11:30: POC Glucose 170 H Radiography Diagnostic Testing: Radiology Impression Chest X-Ray 02/17/24 15:20 IMPRESSION: Mild right lower lobe atelectasis or inflammation. Electronically Signed: Azalea Oliveira MD at 15:42 EST Reading Location ID and State: [facility] / [place] Tel , Service support , D/C Instructions Discharge Diet: Low fat / Low cholesterol Discharge Activity: Return to Normal Activity Weight Bearing Status: Weight bearing as tolerated Call your doctor if you observe: Fever of 101 or Higher, Shortness of breath, Dizziness, Fainting spells, Swelling in the ankles and Chest pain DC O2, CPAP, BIPAP Needs Additional Home O2 Discharge instructions: No DC home with Oxygen: No Meaningful Use Info Meaningful Use Meaningful Use Diagnoses (Choose all that apply): None applicable Ischemic Stroke Statin Dosing Therapy Reference: STATIN DOSE THERAPY REFERENCE: * Patients > 75 years receive moderate or high dose statin therapy. * Patients 75 years or YOUNGER should receive HIGH intensity statin dose unless contraindicated. You will be required to document reason for non-treatment if statin daily dose does not meet guidelines. HIGH DOSE STATIN THERAPY DAILY Atorvastatin > than or = to 40 mg Rosuvastatin > than or = to 20 mg Amlodipine + Atorvastatin > than or = to 2.5/40 mg Ezetimibe + Simvastatin 10/80 mg Simvastatin 80mg Discharge Plan Admission Admit Date/Time: 02/17/24 18:44 Primary Reason for Your Visit: chest pain Attending Provider: Audrey Vail Primary Care Provider: Mala Mcgrath Consulting Providers: Eliza Castro; Roberto Brewster Instructions Patient Instructions: Discharge Instructions for Angina Discharge Orders/Prescriptions Prescriptions: New cefdinir 300 mg capsule 300 mg PO BID Qty: 10 0RF Continued nitroglycerin 0.4 mg tablet, sublingual 0.4 mg sublingual Q5-15M PRN (Reason: chest pain) Qty: 25 6RF Rx Instructions: do not exceed 3 doses per episode cyclobenzaprine 10 mg tablet 10 mg PO TID PRN (Reason: muscle spasm) Qty: 30 0RF Nurtec ODT 75 mg tablet,disintegrating 75 mg PO DAILY PRN (Reason: migraine headache) Qty: 16 5RF mirtazapine 7.5 mg tablet 7.5 mg PO QHS Qty: 30 1RF hyoscyamine sulfate 0.125 mg tablet 0.125 mg PO BID-QID PRN (Reason: dyspepsia) duloxetine 60 mg capsule,delayed release(DR/EC) 60 mg PO BID galantamine 16 mg capsule,ext rel. pellets 24 hr 16 mg PO QDAY bupropion HCl 75 mg tablet 75 mg PO BID Qty: 60 1RF aspirin 81 mg tablet,delayed release (DR/EC) 81 mg PO DAILY (DME) Dexcom G6 Staff Scientist Misc See Rx Instructions .ROUTE .MEDSUPPLY Rx Instructions: As directed diphenoxylate-atropine [Lomotil] 2.5-0.025 mg tablet 1 tab PO TID PRN (Reason: diarrhea) buprenorphine HCl 150 mcg film 150 mcg buccal Q12H metoprolol tartrate 25 mg tablet 75 mg PO BID Rx Instructions: take 25 mg with a 50 mg tablet twice a day to = 75 mg twice a day; cholestyramine (with sugar) 4 gram powder in packet 1 ea PO BID metoprolol tartrate 50 mg tablet 50 mg PO BID Patient Comments: take 25 mg orally with a 50 mg tablet twice a day to = 75 mg twice a day; melatonin 5 mg tablet 5 mg PO QHS PRN (Reason: sleep) Humalog KwikPen Insulin 200 unit/mL (3 mL) insulin pen 1 sliding scale dose subcut ACHS Patient Comments: pt has an insulin pump. she states it give continuous supply, and at meals she enters carbs, and it performs calculations and supplies insulin. triamcinolone acetonide 0.1 % ointment 1 applic topical DAILY PRN (Reason: psoriasis) pregabalin 75 mg capsule 75 mg PO DAILY lamotrigine 200 mg tablet 200 mg PO DAILY albuterol sulfate 90 mcg/actuation HFA aerosol inhaler 2 puff INHALATION BID PRN (Reason: SOB) dicyclomine 10 mg Capsule 10 mg PO BID 30 Days Qty: 60 0RF benzonatate 200 mg capsule 200 mg PO DAILY PRN (Reason: cough) pantoprazole [Protonix] 40 mg tablet,delayed release (DR/EC) 40 mg PO BID Qty: 60 11RF (DME) Omnipod 5 G6 Pods (Gen 5) Cartridge See Rx Instructions .Route Qty: 45 1RF Rx Instructions: 1 pod q 48 hours atorvastatin 80 mg tablet 80 mg PO QHS Qty: 90 3RF Patient Comments: cholesterol (DME) Dexcom G6 Sensor Device See Rx Instructions .Route Qty: 9 1RF Rx Instructions: As directed isosorbide dinitrate 30 mg tablet 30 mg PO BID Qty: 60 11RF fluticasone propionate [Flonase Allergy Relief] 50 mcg/actuation spray,suspension 2 spray intranasal DAILY Qty: 16 3RF Rx Instructions: administer into each nostril clopidogrel 75 mg tablet 75 mg PO DAILY Qty: 28 11RF Referrals / Follow Up: Fish Menon MD [Med Staff - Active Staff] - Within 2 Weeks Mala Mcgrath MD [Primary Care Provider] - Within 1 Week (Appointment is with ROBERT Mauricio) Disposition Disposition (needs filled in before D/C Order can be placed): Home, Self Care Charges/Coding Visit Charges Inpatient E&M: 29884 Disch Hosp >30min
--- NOTE | 2024-02-18 15:08 | PCM.DC ---
Discharge Instructions Diet Discharge Diet: Low fat / Low cholesterol DC O2, CPAP, BIPAP needs Additional Home O2 Discharge instructions: No Dressing / Incision Weight Bearing Status: Weight bearing as tolerated Dressing / Incision Call your doctor if you observe: Fever of 101 or Higher, Shortness of breath, Dizziness, Fainting spells, Swelling in the ankles and Chest pain Follow Up Care Test Results: Test results from this visit will be discussed in further detail at your follow-up appointment, if applicable. Discharge Plan Admission Admit Date/Time: 02/17/24 18:44 Primary Reason for Your Visit: chest pain Attending Provider: Audrey Vail Primary Care Provider: Mala Mcgrath Consulting Providers: Eliza Castro; Roberto Brewster Instructions Patient Instructions: Discharge Instructions for Angina Discharge Orders/Prescriptions Prescriptions: New cefdinir 300 mg capsule 300 mg PO BID Qty: 10 0RF Continued nitroglycerin 0.4 mg tablet, sublingual 0.4 mg sublingual Q5-15M PRN (Reason: chest pain) Qty: 25 6RF Rx Instructions: do not exceed 3 doses per episode cyclobenzaprine 10 mg tablet 10 mg PO TID PRN (Reason: muscle spasm) Qty: 30 0RF Nurtec ODT 75 mg tablet,disintegrating 75 mg PO DAILY PRN (Reason: migraine headache) Qty: 16 5RF mirtazapine 7.5 mg tablet 7.5 mg PO QHS Qty: 30 1RF hyoscyamine sulfate 0.125 mg tablet 0.125 mg PO BID-QID PRN (Reason: dyspepsia) duloxetine 60 mg capsule,delayed release(DR/EC) 60 mg PO BID galantamine 16 mg capsule,ext rel. pellets 24 hr 16 mg PO QDAY bupropion HCl 75 mg tablet 75 mg PO BID Qty: 60 1RF aspirin 81 mg tablet,delayed release (DR/EC) 81 mg PO DAILY (DME) Dexcom G6 Engraver Picture Misc See Rx Instructions .ROUTE .MEDSUPPLY Rx Instructions: As directed diphenoxylate-atropine [Lomotil] 2.5-0.025 mg tablet 1 tab PO TID PRN (Reason: diarrhea) buprenorphine HCl 150 mcg film 150 mcg buccal Q12H metoprolol tartrate 25 mg tablet 75 mg PO BID Rx Instructions: take 25 mg with a 50 mg tablet twice a day to = 75 mg twice a day; cholestyramine (with sugar) 4 gram powder in packet 1 ea PO BID metoprolol tartrate 50 mg tablet 50 mg PO BID Patient Comments: take 25 mg orally with a 50 mg tablet twice a day to = 75 mg twice a day; melatonin 5 mg tablet 5 mg PO QHS PRN (Reason: sleep) Humalog KwikPen Insulin 200 unit/mL (3 mL) insulin pen 1 sliding scale dose subcut ACHS Patient Comments: pt has an insulin pump. she states it give continuous supply, and at meals she enters carbs, and it performs calculations and supplies insulin. triamcinolone acetonide 0.1 % ointment 1 applic topical DAILY PRN (Reason: psoriasis) pregabalin 75 mg capsule 75 mg PO DAILY lamotrigine 200 mg tablet 200 mg PO DAILY albuterol sulfate 90 mcg/actuation HFA aerosol inhaler 2 puff INHALATION BID PRN (Reason: SOB) dicyclomine 10 mg Capsule 10 mg PO BID 30 Days Qty: 60 0RF benzonatate 200 mg capsule 200 mg PO DAILY PRN (Reason: cough) pantoprazole [Protonix] 40 mg tablet,delayed release (DR/EC) 40 mg PO BID Qty: 60 11RF (DME) Omnipod 5 G6 Pods (Gen 5) Cartridge See Rx Instructions .Route Qty: 45 1RF Rx Instructions: 1 pod q 48 hours atorvastatin 80 mg tablet 80 mg PO QHS Qty: 90 3RF Patient Comments: cholesterol (DME) Dexcom G6 Sensor Device See Rx Instructions .Route Qty: 9 1RF Rx Instructions: As directed isosorbide dinitrate 30 mg tablet 30 mg PO BID Qty: 60 11RF fluticasone propionate [Flonase Allergy Relief] 50 mcg/actuation spray,suspension 2 spray intranasal DAILY Qty: 16 3RF Rx Instructions: administer into each nostril clopidogrel 75 mg tablet 75 mg PO DAILY Qty: 28 11RF Referrals / Follow Up: Fish Menon MD [Med Staff - Active Staff] - Within 2 Weeks Mala Mcgrath MD [Primary Care Provider] - Within 1 Week (Appointment is with ROBERT Mauricio) Disposition Disposition (needs filled in before D/C Order can be placed): Home, Self Care
--- NOTE | 2024-02-18 15:15 | CASEMGMT ---
Patient has order for discharge. RN CM in to discuss needs at discharge. Patient denies needs or help at discharge. Patient had no further questions or concerns.
== END 2024-02-18 15:07 | disposition home or self-care (01) ==
LOC: ED 19:21 → PCU 20:27
PROVIDERS: Physician Assistant; Admitting Provider Internal Medicine; Emergency Provider Surgery; PCP Internal Medicine; Visit Provider Student in an Organized Health Care Education/Training Program
DX: A08.11 Acute gastroenteropathy due to Norwalk agent (principal); Z93.3 Colostomy status; N18.4 Chronic kidney disease, stage 4 (severe); J96.11 Chronic respiratory failure with hypoxia; I13.0 Hypertensive heart and chronic kidney disease with heart failure and stage 1 through stage 4 chronic kidney disease, or unspecified chronic kidney disease; I50.32 Chronic diastolic (congestive) heart failure; I27.21 Secondary pulmonary arterial hypertension; J44.9 Chronic obstructive pulmonary disease, unspecified; E11.22 Type 2 diabetes mellitus with diabetic chronic kidney disease; E11.42 Type 2 diabetes mellitus with diabetic polyneuropathy; E11.43 Type 2 diabetes mellitus with diabetic autonomic (poly)neuropathy; I25.10 Atherosclerotic heart disease of native coronary artery without angina pectoris; F41.8 Other specified anxiety disorders; N17.9 Acute kidney failure, unspecified; Z95.5 Presence of coronary angioplasty implant and graft; M79.602 Pain in left arm; Z96.41 Presence of insulin pump (external) (internal); Z79.82 Long term (current) use of aspirin; R07.89 Other chest pain; E78.49 Other hyperlipidemia; G89.29 Other chronic pain; R30.0 Dysuria; Z79.02 Long term (current) use of antithrombotics/antiplatelets; Z87.891 Personal history of nicotine dependence; E86.0 Dehydration; Z79.899 Other long term (current) drug therapy; K21.9 Gastro-esophageal reflux disease without esophagitis; D47.2 Monoclonal gammopathy; K90.829 Short bowel syndrome, unspecified; Z99.81 Dependence on supplemental oxygen; K75.81 Nonalcoholic steatohepatitis (NASH)
CPT/HCPCS: 36415; 71046; 78452; 80048; 82962; 84132; 84484; 85025; 85379; 93005; 93017; 96372; 96374; 99221; 99285; A9500; A4216; G0378; J2785

== ENCOUNTER → 2024-02-24 | Outpatient (CLI) | payer MEDICARE, MEDICAID, SELFPAY ==
[2023-10-27 12:02] VITALS: BMI 30.9
[2024-02-24 11:12] LABS: Cholesterol 201 mg/dL (200); High Density Lipoprotein 56 mg/dL; Triglycerides 514 mg/dL
== END | disposition home or self-care (01) ==
LOC: LAB 10:18
PROVIDERS: PCP Internal Medicine; Referring Provider Physician Assistant Medical; Visit Provider Physician Assistant Medical
DX: I25.10 Atherosclerotic heart disease of native coronary artery without angina pectoris (principal)
CPT/HCPCS: 36415; 80061

== ENCOUNTER 2024-03-10 14:20 | Inpatient (IN) | payer MEDICARE, MEDICAID, SELFPAY ==
[2023-10-27 12:02] VITALS: BMI 30.9
[2024-03-10] VITALS (9 sets, daily range): BP systolic 128–167; BP diastolic 65–88; PULSE 86–115; RESP 16–28; TEMP 35.8–36.6; O2SAT 95–99; BMI 31.4; BMI 30.4
[2024-03-10 15:02] LABS: Absolute Lymphocyte Count 4.12 X10^3/uL (0.83-4.51); Absolute Neutrophil Count 10.2 X10^3/uL (2.0-7.7); Basophil# 0.13 X10^3/uL; Basophil% 0.8 % (0-1); Eosinophil# 0.38 X10^3/uL; Eosinophils% 2.4 % (0-5); Hematocrit 52.9 % (37-47); Hemoglobin 16.9 g/dL (12.0-15.0); Lymphocyte # 4.12 X10^3/ul (0.83-4.51); Lymphocyte % 25.5 % (19-41); Mean Corp Hgb Conc 31.9 g/dL (32-36); Mean Corpuscular Hgb 27.5 pg (27.0-32.0); Mean Platelet Vol. 12.1 fl (6.2-12.0); Monocyte# 1.16 X10^3/uL; Monocyte% 7.2 % (0-10); NRBC Flagged by Analyzer 0.4 % (0-5); Neutrophil # 10.15 X10^3/uL (2.7-7.7); Neutrophil % 62.9 % (47-70); Platelet Count 290 K/mm3 (150-450); RBC Distribution Width CV 18.2 % (11.6-14.6); RBC Distribution Width SD 52.8 fl (35.1-43.9); Red Blood Count 6.15 M/mm3 (4.2-5.4); White Blood Count 16.1 K/mm3 (4.4-11.0)
--- NOTE | 2024-03-10 15:15 | EX.ED.DYSGE1 ---
HPI History of Present Illness Chief Complaint: Nausea/Vomiting/Diarrhea Informant: patient and family Narrative Narrative: 63-year-old female presenting to the emergency room with the chief complaint of vomiting diarrhea. Patient states for the past 3 days she has had diarrhea. She has a history of high output colostomy. She states that before the recent IV fluid shortage she was receiving twice weekly fluid injections. She has not had that for couple months. She notes that she started with vomiting and diarrhea and is now mostly diarrhea. She states she has barely made any urine over the past 48 hours. Blood sugars today have been in the 150s. She denies any fever. She states that she feels globally weak. No reported syncope. No rashes. She has a history of coronary artery disease, COPD and diabetes depression dementia. She notes a generalized abdominal pain mostly in the upper abdomen. She does not feel bloated. No lower extremity swelling. [facility] Medical History CAD (coronary artery disease) Hypertension MGUS (monoclonal gammopathy of unknown significance) Dehydration Falls Hypoxic respiratory failure Hypercapnic respiratory failure Fatigue Low back pain Abnormality of gait and mobility Polyneuropathy Insulin pump titration Presence of insulin pump Health care maintenance Essential tremor Dementia History of stress test Fungal dermatitis Herpes genitalia Encounter for insertion of venous access port Post-menopausal Rash Back pain Arthritis Ambulates with cane History of renal disease High cholesterol Dietary restriction History of pain when walking History of echocardiogram Chronic kidney disease (CKD) stage G4/A2, severely decreased glomerular filtration rate (GFR) between 15-29 mL/min/1.73 square meter and albuminuria creatinine ratio between 30-299 mg/g Chronic kidney disease (CKD) stage G4/A1, severely decreased glomerular filtration rate (GFR) between 15-29 mL/min/1.73 square meter and albuminuria creatinine ratio less than 30 mg/g Ingrown toenail Neuropathy Hyperglycemia due to diabetes mellitus Frequent falls Tremor Depression Chronic pain Rheumatoid arthritis Congestive heart failure (CHF) Lumbar spondylosis Greater trochanteric bursitis CKD (chronic kidney disease) stage 3, GFR 30-59 ml/min Malaise and fatigue Vitamin B12 deficiency History of CAD (coronary artery disease) Memory loss Anxiety and depression Degenerative disc disease at L5-S1 level CAD (coronary artery disease) Cellulitis, abdominal wall Left shoulder pain Gastroparesis Vitamin D deficiency Acute kidney injury CKD (chronic kidney disease), stage IV High output ileostomy Elevated anti-tissue transglutaminase (tTG) IgA level Ileostomy present Short bowel syndrome Loss of hearing Wears glasses History of COVID-19 Anxiety Insulin dependent diabetes mellitus Walker as ambulation aid Fatty liver Migraine headache Hx of diabetic gastroparesis Gastric reflux Former smoker BiPAP (biphasic positive airway pressure) dependence Cardiology follow-up encounter Myoclonic jerking Chronic narcotic use Avascular necrosis of bone of left hip Chronic back pain Non-alcoholic fatty liver disease Liver mass Ulcerative colitis Nonalcoholic steatohepatitis Chronic respiratory failure Smoking greater than 20 pack years Obesity Chronic respiratory failure with hypoxia, on home O2 therapy Diabetic gastroparesis Secondary pulmonary arterial hypertension Chronic diastolic (congestive) heart failure Type 2 diabetes mellitus with diabetic polyneuropathy BMI 31.0-31.9,adult Depression with anxiety Arthritis Menieres disease Hyperlipidemia Psoriasis Obstructive sleep apnea COPD (chronic obstructive pulmonary disease) FCHL (familial combined hyperlipidemia) DM2 (diabetes mellitus, type 2) Home Medications ?Medication ?Instructions ?Recorded ?Last Taken ?Type blood-glucose meter,continuous 11/15/21 Unknown History (Dexcom G6 Swaging Machine Adjuster) cyclobenzaprine 10 mg tablet 10 mg PO TID PRN muscle spasm #30 02/24/23 04/30/23 Rx tabs pantoprazole 40 mg tablet,delayed 40 mg PO BID GERD #60 tabs 04/29/23 02/17/24 Rx release (Protonix) albuterol sulfate 90 mcg/actuation 2 puff inhalation BID PRN SOB 05/01/23 02/17/24 History aerosol inhaler lamotrigine 200 mg tablet 200 mg PO DAILY mood 05/01/23 02/17/24 History dicyclomine 10 mg capsule 10 mg PO BID stomach 30 days #60 05/03/23 02/17/24 Rx caps diphenoxylate-atropine 2.5 1 tab PO TID PRN diarrhea 06/21/23 09/04/23 History mg-0.025 mg tablet (Lomotil) atorvastatin 80 mg tablet 80 mg PO QHS CHOLESTEROL LOWERING 07/22/23 02/16/24 Rx #90 tabs buprenorphine HCl 150 mcg buccal 150 mcg buccal Q12H pain 08/04/23 02/17/24 History film metoprolol tartrate 25 mg tablet 75 mg PO BID bp 09/18/23 02/17/24 History rimegepant 75 mg disintegrating 75 mg PO DAILY PRN migraine 10/29/23 Unknown Rx tablet (Nurtec ODT) headache #16 tabs blood-glucose sensor (Dexcom G6 #9 ea 12/07/23 Unknown Rx Sensor device) isosorbide dinitrate 30 mg tablet 30 mg PO BID heart #60 tabs 12/08/23 02/17/24 Rx duloxetine 60 mg capsule,delayed 60 mg PO BID mental health 12/23/23 02/17/24 History release hyoscyamine sulfate 0.125 mg tablet 0.125 mg PO BID-QID PRN dyspepsia 12/23/23 Unknown History mirtazapine 7.5 mg tablet 7.5 mg PO QHS mental health #30 12/23/23 02/16/24 Rx tabs fluticasone propionate 50 2 spray intranasal DAILY allergies 01/04/24 02/17/24 Rx mcg/actuation nasal #16 grams spray,suspension (Flonase Allergy Relief) bupropion HCl 75 mg tablet 75 mg PO BID mental health #60 tabs 02/01/24 02/17/24 Rx galantamine 16 mg 24 hr 16 mg PO QDAY memory 02/01/24 02/17/24 History capsule,extended release clopidogrel 75 mg tablet 75 mg PO DAILY anti platelet #28 02/02/24 02/17/24 Rx TABLETS insulin lispro 200 unit/mL (3 mL) 1 sliding scale dose subcut ACHS 02/17/24 02/17/24 History subcutaneous pen (Humalog KwikPen diabetes U-200 Insulin) melatonin 5 mg tablet 5 mg PO QHS PRN sleep 02/17/24 Unknown History metoprolol tartrate 50 mg tablet 50 mg PO BID blood pressure 02/17/24 02/17/24 History triamcinolone acetonide 0.1 % 1 applic topical DAILY PRN 02/17/24 Unknown History topical ointment psoriasis pregabalin 75 mg capsule 75 mg PO DAILY pain #30 caps 02/22/24 Unknown Rx aspirin 81 mg tablet,delayed 81 mg PO DAILY heart health #30 02/24/24 Unknown Rx release tabs nitroglycerin 0.4 mg sublingual 0.4 mg sublingual Q5-15M PRN chest 02/24/24 Unknown Rx tablet pain #25 tabs evolocumab 140 mg/mL subcutaneous 140 mg subcut Q2W #6 mL 02/29/24 Unknown Rx pen injector (Repatha SureClick) primidone 50 mg tablet See Rx Instructions .Route 03/07/24 Unknown Rx .COMPLEX #60 tabs insulin pump cart,auto,BT,G6/7 #45 ea 03/10/24 Unknown Rx (Omnipod 5 G6-G7 Pods (Gen 5) subcutaneous cartridge) Allergy/AdvReac Type Severity Reaction Status Date / Time cinnamon (Cinnamon) Allergy Severe Anaphylaxis Verified 03/10/24 14:25 Influenza Virus Vaccines Allergy Severe Shortness Verified 03/10/24 14:25 of breath liraglutide (From Victoza) Allergy Severe Anaphylaxis Verified 03/10/24 14:25 ciprofloxacin Allergy Intermediate Swelling Verified 03/10/24 14:25 metformin (From Glucophage) Allergy Mild Nausea Verified 03/10/24 14:25 metronidazole (From Flagyl) Allergy Hives Verified 03/10/24 14:25 Metronidazole HCl (From Allergy Hives Verified 03/10/24 14:25 Flagyl) Penicillins Allergy Hives Verified 03/10/24 14:25 Sulfa (Sulfonamide Allergy Hives Verified 03/10/24 14:25 Antibiotics) aripiprazole (From Abilify) AdvReac hallucinati Verified 03/10/24 14:25 ons metformin HCl (From AdvReac Nausea Verified 03/10/24 14:25 Glucophage) ranolazine AdvReac Nausea/Vom/ Verified 03/10/24 14:25 Diarrhea Ionuutc-IPB-CiR Reductase AdvReac Nausea/joints Verified 03/10/24 14:25 Inhibitor (Ssbeyvz-Rne-Dfu ache Reductase Inhibitor) Family History Mother CVA (cerebral vascular accident) Diabetes Brother Heart disease of CAD at 65 Myocardial infarction Pancreatitis Father Cancer lymphomia Lymphoma Grandmother Myocardial infarction of [place] in her 70s Sister COPD (chronic obstructive pulmonary disease) Surgical History History of vascular access device History of colonoscopy History of esophagogastroduodenoscopy (EGD) History of appendectomy History of coronary artery stent placement H/O total hip arthroplasty Status post total hip replacement, left History of cardiac catheterization History of History of cholecystectomy H/O coronary artery bypass surgery (05/18/12) History of coronary artery stent placement (01/12/18) H/O sinus surgery history closed fissure Ileostomy status H/O colectomy left thumb surgery H/O total hysterectomy ileostomy Social History household members: spouse and none Smoking Status: Former smoker quit date: 03/08/12 how long ago did patient quit smoking: quit in 2012; 0.5-1ppd x 30yrs alcohol intake: never substance use type: does not use diet: diabetic caffeine: No eating out: 1-3 times/week what type of physical activity do you participate in: none seatbelt use: always do you feel safe at home: Yes ROS ROS ED ROS Narrative Generalized weakness Constitutional Constitutional ED: Denies chills or weight loss Eyes Eyes: Denies change in vision or diplopia ENT ENT ED: Denies ear pain, rhinorrhea or sore throat Cardiovascular Cardiovascular: Denies chest pain, orthopnea, palpitations or racing heartbeat Respiratory/Chest Respiratory/Chest: Denies cough, dyspnea or orthopnea Gastrointestinal Gastrointestinal: Reports abdominal pain, diarrhea, nausea and vomiting Genitourinary Genitourinary ED: Reports other Details: Decreased urinary output ; Denies dysuria, hematuria or urinary frequency Musculoskeletal Musculoskeletal: Denies arthralgias or myalgias Integumentary Denies abscess or rash Neurologic Neurologic: Denies headache(s) or weakness Psychiatric Psychiatric: Denies anxiety, depression, suicidal ideation or suicidal thoughts Endocrine Endocrinology: Denies polydipsia, polyphagia or polyuria Allergic/Immunologic Allergic/Immunologic ED: Denies mouth swelling, tongue swelling or urticaria EXAM Physical Exam Narrative Exam Narrative: Patient appears globally weak Const Vital Signs: 03/10/24 14:25 03/10/24 15:29 03/10/24 16:00 Temperature 96.4 F L Temperature Source Axillary Pulse Rate 115 H 107 H 100 Respiratory Rate 18 22 H Blood Pressure 128/83 H 138/81 H 167/88 H Blood Pressure Mean 98 100 114 Pulse Ox 99 96 98 Oxygen Delivery Method Room Air Nasal Cannula Oxygen Flow Rate (L/min) 2 Positive well nourished, well developed and obese General Appearance ED: well developed and NAD Nutritional Appearance: obese HEENT Reports normocephalic, head/scalp atraumatic and dry mucous membranes Mouth ED: Yes dry mucous membranes Mouth: dry mucous membranes Eyes PERRL and EOMs intact bilaterally Neck no lymphadenopathy, supple and no JVD Resp normal respiratory effort and clear to auscultation bilaterally Cardio regular rate, regular rhythm and no murmurs Rate: tachycardic GI non-tender Inspection: Negative for abdominal distention Auscultation: hyperactive bowel sounds Palpation: soft and tender; Negative for guarding or rebound tenderness present Back/Spine no CVA tenderness and normal ROM Extremity normal to inspection General Extremety ED: Negative for edema General Extremity: Negative for edema Neuro oriented x3 and CN's II-XII intact bilaterally Sensorium / Orientation: alert Motor Exam: general weakness Psych mental status grossly normal Mood & Affect: Negative for depressed or tearful Skin no rashes or lesions noted and no wounds MDM MDM MDM Narrative Medical decision making narrative: Differential diagnosis includes but not limited to gastroenteritis dehydration electrolyte abnormality acute renal failure RALPH DKA colitis IV was established white count 16.1 hemoglobin 16.9 platelet count of 290. Given the elevation of the hemoglobin off of baseline I suspect a degree of hemoconcentration. This would also most likely cause an elevated white count. Her serum CO2 was 16 BUN of 74 and a creatinine of 5.47. This is a significant rise off of her baseline creatinine just a few weeks ago. AST 95 ALT 53 total bilirubin 0.7 direct bilirubin 0.17 alkaline phosphatase 251. Lipase is 57. IV fluids were given the patient received Zofran and morphine. Because of the acute renal failure a Lira catheter was placed to obtain accurate I's and O's. stool be sent for enteric pathogens. CT abdomen pelvis was obtained. This is negative for acute findings. Noted fluid in the stomach small intestine. Plan of care will be admission to the hospital for further hydration and evaluation. History & Record Review Discussion w/independent historian: Patient and Family Additional record(s) reviewed:: Prior labs Lab Data Attestation: I reviewed the patient's lab results. Labs: Laboratory Results - last 24 hr 03/10/24 14:46 WBC 16.1 H RBC 6.15 H Hgb 16.9 H Hct 52.9 H MCV 86.0 MCH 27.5 MCHC 31.9 L RDW Std Deviation 52.8 H RDW Coeff of Jan 18.2 H Plt Count 290 MPV 12.1 H Immature Gran % (Auto) 1.200 H Neut % (Auto) 62.9 Lymph % (Auto) 25.5 Mccreary % (Auto) 7.2 Eos % (Auto) 2.4 Baso % (Auto) 0.8 Absolute Neuts (auto) 10.2 H Absolute Lymphs (auto) 4.12 Nucleated RBC % 0.4 Sodium 133 L Potassium 4.7 Chloride 106 Carbon Dioxide 16.0 L Anion Gap 10 BUN 74 H Creatinine 5.47 H Est GFR (MDRD) Af Amer 10 L Est GFR (MDRD) Non-Af 8 L BUN/Creatinine Ratio 13.5 Glucose 233 H Calcium 10.4 H Magnesium 2.1 Total Bilirubin 0.70 Direct Bilirubin 0.17 AST 95 H ALT 53 Alkaline Phosphatase 251 H Total Protein 9.7 H Albumin 3.8 Globulin 5.9 H Lipase 57 Radiography Diagnostic Testing: Clinical Impression(s) from Imaging Studies Abdomen/Pelvis CT 03/10/24 15:42 IMPRESSION: 1. No acute abnormalities of the abdomen or pelvis. 2. Status post colectomy with left lower quadrant ileostomy. Electronically Signed: Rip Buchanan MD at 16:22 EST , Management Discussion w/another healthcare provider: Hospitalist (Dr Chandler) Discharge Plan Dx/Rx/DC Orders Clinical Impression: Nausea, vomiting, and diarrhea, Abdominal pain, Acute kidney injury Disposition Disposition: Acute Care [facility]
[2024-03-10] MEDS: 0.9% Normal Saline (1000mL) 1,000 ML 999 ML IV (15:19)
[2024-03-10] MEDS: Ondansetron 4 MG/2 ML Vial IV (15:19)
[2024-03-10] MEDS: Morphine 4 MG/ML Syringe IV (15:19)
[2024-03-10 15:20] LABS: Anion Gap 10 (5-15); BUN 74 mg/dL (7-18); BUN/Creat Ratio 13.5 RATIO (10-20); Calcium,Total 10.4 mg/dL (8.5-10.1); Chloride 106 mmol/L (98-107); Creatinine, Serum 5.47 mg/dL (0.55-1.02); EST Glomerular Filtration Rate 8 mL/min (>60); Est Glom Filt Rate - Afr Amer 10 mL/min (>60); Glucose 233 mg/dL (74-106); Potassium 4.7 mmol/L (3.5-5.1); Sodium Level 133 mmol/L (136-145)
[2024-03-10] MEDS: 0.9% Normal Saline (1000mL) 1,000 ML 125 ML IV (15:20)
[2024-03-10 15:42] LABS: AST(SGOT) 95 U/L (15-37); Alanine Aminotransfer ALT/SGPT 53 U/L (13-56); Albumin, Serum 3.8 g/dL (3.2-5.0); Alkaline Phosphatase 251 U/L (45-117); Bilirubin, Direct 0.17 mg/dL (0.00-0.30); Globulin 5.9 g/dL (2.2-4.2); Lipase 57 U/L (13-75); Magnesium 2.1 mg/dL (1.6-2.6); Protein, Total 9.7 g/dL (6.4-8.2)
--- NOTE | 2024-03-10 15:42 | CT_ITS ---
EXAM: CT ABDOMEN AND PELVIS WITHOUT INTRAVENOUS CONTRAST CLINICAL INDICATION: vomiting diarrhea renal failure TECHNIQUE: Helically acquired images were obtained of the abdomen and pelvis without intravenous contrast. This CT exam was performed using one or more of the following dose reduction techniques: automated exposure control, adjustment of the mA and/or kV according to patient size, and/or use of iterative reconstruction technique. COMPARISON: No relevant prior studies available. FINDINGS: LOWER THORAX: Unremarkable. Lung bases are clear. No cardiomegaly. No significant pericardial effusion. ABDOMEN: LIVER: Liver is decreased in attenuation compatible fatty infiltration. GALLBLADDER AND BILE DUCTS: Gallbladder is nonvisualized and may be surgically absent. No intra- or extrahepatic biliary ductal dilation. PANCREAS: Unremarkable. No focal cystic mass. SPLEEN: Unremarkable. Normal size without focal cystic or solid mass. ADRENALS: Unremarkable. No nodules. KIDNEYS AND URETERS: There is a low-density mass in the lower pole the right kidney compatible with a cyst. No follow-up imaging is necessary. No hydronephrosis. STOMACH AND BOWEL: The patient status post total colectomy with a left lower quadrant ileostomy. No stomach or bowel distention. PELVIS: APPENDIX: See above. BLADDER: Unremarkable. REPRODUCTIVE: Patient status post hysterectomy. ABDOMEN and PELVIS: INTRAPERITONEAL SPACE: Unremarkable. No ascites or other fluid collection. No free air. BONES/JOINTS: There is total left hip prosthesis. No suspicious lytic or blastic abnormality. SOFT TISSUES: Unremarkable. No discrete abdominal or pelvic wall hernia. VASCULATURE: Unremarkable. Abdominal aorta is non-dilated. LYMPH NODES: Unremarkable. No enlarged lymph nodes. CT/Abdomen/Pelvis without Cont IMPRESSION: 1. No acute abnormalities of the abdomen or pelvis. 2. Status post colectomy with left lower quadrant ileostomy. Electronically Signed: Rip Buchanan MD at 16:22 EST ,
[2024-03-10] MEDS: Dicyclomine 20 MG/2 ML Vial IM (16:40)
--- NOTE | 2024-03-10 16:57 | ED.RN ---
unable to complete home meds list d/t dr.. bowser being in chart
--- NOTE | 2024-03-10 17:26 | HP.PCM.HOS_ITS ---
HPI - General General Date of Admission: 03/10/24 Date of Service: 03/10/24 Chief Complaint: Nausea vomiting diarrhea HPI Narrative ASHLEY MÉNDEZ, is a 63 F who presents with nausea, vomiting and diarrhea since this past Wednesday. This is atypical from her short gut syndrome where she does have voluminous diarrhea but she is having vomiting. This is persisted and she is now having abdominal pain with her retching. She presented to emergency room where she was noted to be in acute kidney injury with a creatinine of 5.4 (baseline is 1.75). In the emergency room, she received IV fluids, ondansetron, morphine and Bentyl. [facility] Medical History CAD (coronary artery disease) Hypertension MGUS (monoclonal gammopathy of unknown significance) Dehydration Falls Hypoxic respiratory failure Hypercapnic respiratory failure Fatigue Low back pain Abnormality of gait and mobility Polyneuropathy Insulin pump titration Presence of insulin pump Health care maintenance Essential tremor Dementia History of stress test Fungal dermatitis Herpes genitalia Encounter for insertion of venous access port Post-menopausal Rash Back pain Arthritis Ambulates with cane History of renal disease High cholesterol Dietary restriction History of pain when walking History of echocardiogram Chronic kidney disease (CKD) stage G4/A2, severely decreased glomerular filtration rate (GFR) between 15-29 mL/min/1.73 square meter and albuminuria creatinine ratio between 30-299 mg/g Chronic kidney disease (CKD) stage G4/A1, severely decreased glomerular filtration rate (GFR) between 15-29 mL/min/1.73 square meter and albuminuria creatinine ratio less than 30 mg/g Ingrown toenail Neuropathy Hyperglycemia due to diabetes mellitus Frequent falls Tremor Depression Chronic pain Rheumatoid arthritis Congestive heart failure (CHF) Lumbar spondylosis Greater trochanteric bursitis CKD (chronic kidney disease) stage 3, GFR 30-59 ml/min Malaise and fatigue Vitamin B12 deficiency History of CAD (coronary artery disease) Memory loss Anxiety and depression Degenerative disc disease at L5-S1 level CAD (coronary artery disease) Cellulitis, abdominal wall Left shoulder pain Gastroparesis Vitamin D deficiency Acute kidney injury CKD (chronic kidney disease), stage IV High output ileostomy Elevated anti-tissue transglutaminase (tTG) IgA level Ileostomy present Short bowel syndrome Loss of hearing Wears glasses History of COVID-19 Anxiety Insulin dependent diabetes mellitus Walker as ambulation aid Fatty liver Migraine headache Hx of diabetic gastroparesis Gastric reflux Former smoker BiPAP (biphasic positive airway pressure) dependence Cardiology follow-up encounter Myoclonic jerking Chronic narcotic use Avascular necrosis of bone of left hip Chronic back pain Non-alcoholic fatty liver disease Liver mass Ulcerative colitis Nonalcoholic steatohepatitis Chronic respiratory failure Smoking greater than 20 pack years Obesity Chronic respiratory failure with hypoxia, on home O2 therapy Diabetic gastroparesis Secondary pulmonary arterial hypertension Chronic diastolic (congestive) heart failure Type 2 diabetes mellitus with diabetic polyneuropathy BMI 31.0-31.9,adult Depression with anxiety Arthritis Menieres disease Hyperlipidemia Psoriasis Obstructive sleep apnea COPD (chronic obstructive pulmonary disease) FCHL (familial combined hyperlipidemia) DM2 (diabetes mellitus, type 2) Home Medications ?Medication ?Instructions ?Recorded ?Last Taken ?Type blood-glucose meter,continuous 11/15/21 Unknown History ([employer]) cyclobenzaprine 10 mg tablet 10 mg PO TID PRN muscle spasm #30 02/24/23 04/30/23 Rx tabs pantoprazole 40 mg tablet,delayed 40 mg PO BID GERD #60 tabs 04/29/23 02/17/24 Rx release (Protonix) albuterol sulfate 90 mcg/actuation 2 puff inhalation BID PRN SOB 05/01/23 02/17/24 History aerosol inhaler lamotrigine 200 mg tablet 200 mg PO DAILY mood 05/01/23 02/17/24 History dicyclomine 10 mg capsule 10 mg PO BID stomach 30 days #60 05/03/23 02/17/24 Rx caps diphenoxylate-atropine 2.5 1 tab PO TID PRN diarrhea 06/21/23 09/04/23 History mg-0.025 mg tablet (Lomotil) atorvastatin 80 mg tablet 80 mg PO QHS CHOLESTEROL LOWERING 07/22/23 02/16/24 Rx #90 tabs buprenorphine HCl 150 mcg buccal 150 mcg buccal Q12H pain 08/04/23 02/17/24 History film metoprolol tartrate 25 mg tablet 75 mg PO BID bp 09/18/23 02/17/24 History rimegepant 75 mg disintegrating 75 mg PO DAILY PRN migraine 10/29/23 Unknown Rx tablet (Nurtec ODT) headache #16 tabs blood-glucose sensor (Dexcom G6 #9 ea 12/07/23 Unknown Rx Sensor device) isosorbide dinitrate 30 mg tablet 30 mg PO BID heart #60 tabs 12/08/23 02/17/24 Rx duloxetine 60 mg capsule,delayed 60 mg PO BID mental health 12/23/23 02/17/24 History release hyoscyamine sulfate 0.125 mg tablet 0.125 mg PO BID-QID PRN dyspepsia 12/23/23 Unknown History mirtazapine 7.5 mg tablet 7.5 mg PO QHS mental health #30 12/23/23 02/16/24 Rx tabs fluticasone propionate 50 2 spray intranasal DAILY allergies 01/04/24 02/17/24 Rx mcg/actuation nasal #16 grams spray,suspension (Flonase Allergy Relief) bupropion HCl 75 mg tablet 75 mg PO BID mental health #60 tabs 02/01/24 02/17/24 Rx galantamine 16 mg 24 hr 16 mg PO QDAY memory 02/01/24 02/17/24 History capsule,extended release clopidogrel 75 mg tablet 75 mg PO DAILY anti platelet #28 02/02/24 02/17/24 Rx TABLETS insulin lispro 200 unit/mL (3 mL) 1 sliding scale dose subcut ACHS 02/17/24 02/17/24 History subcutaneous pen (Humalog KwikPen diabetes U-200 Insulin) melatonin 5 mg tablet 5 mg PO QHS PRN sleep 02/17/24 Unknown History metoprolol tartrate 50 mg tablet 50 mg PO BID blood pressure 02/17/24 02/17/24 History triamcinolone acetonide 0.1 % 1 applic topical DAILY PRN 02/17/24 Unknown History topical ointment psoriasis pregabalin 75 mg capsule 75 mg PO DAILY pain #30 caps 02/22/24 Unknown Rx aspirin 81 mg tablet,delayed 81 mg PO DAILY heart health #30 02/24/24 Unknown Rx release tabs nitroglycerin 0.4 mg sublingual 0.4 mg sublingual Q5-15M PRN chest 02/24/24 Unknown Rx tablet pain #25 tabs evolocumab 140 mg/mL subcutaneous 140 mg subcut Q2W #6 mL 02/29/24 Unknown Rx pen injector (Geraldine Collins) primidone 50 mg tablet See Rx Instructions .Route 03/07/24 Unknown Rx .COMPLEX #60 tabs insulin pump cart,auto,BT,G6/7 #45 ea 03/10/24 Unknown Rx (Omnipod 5 G6-G7 Pods (Gen 5) subcutaneous cartridge) Allergy/AdvReac Type Severity Reaction Status Date / Time cinnamon (Cinnamon) Allergy Severe Anaphylaxis Verified 03/10/24 14:25 Influenza Virus Vaccines Allergy Severe Shortness Verified 03/10/24 14:25 of breath liraglutide (From Victoza) Allergy Severe Anaphylaxis Verified 03/10/24 14:25 ciprofloxacin Allergy Intermediate Swelling Verified 03/10/24 14:25 metformin (From Glucophage) Allergy Mild Nausea Verified 03/10/24 14:25 metronidazole (From Flagyl) Allergy Hives Verified 03/10/24 14:25 Metronidazole HCl (From Allergy Hives Verified 03/10/24 14:25 Flagyl) Penicillins Allergy Hives Verified 03/10/24 14:25 Sulfa (Sulfonamide Allergy Hives Verified 03/10/24 14:25 Antibiotics) aripiprazole (From Abilify) AdvReac hallucinati Verified 03/10/24 14:25 ons metformin HCl (From AdvReac Nausea Verified 03/10/24 14:25 Glucophage) ranolazine AdvReac Nausea/Vom/ Verified 03/10/24 14:25 Diarrhea Hyhranb-DAN-GbQ Reductase AdvReac Nausea/joints Verified 03/10/24 14:25 Inhibitor (Crsoiek-Kef-Gym ache Reductase Inhibitor) Family History Mother CVA (cerebral vascular accident) Diabetes Brother Heart disease of CAD at 65 Myocardial infarction Pancreatitis Father Cancer lymphomia Lymphoma Grandmother Myocardial infarction of [place] in her 70s Sister COPD (chronic obstructive pulmonary disease) Surgical History History of vascular access device History of colonoscopy History of esophagogastroduodenoscopy (EGD) History of appendectomy History of coronary artery stent placement H/O total hip arthroplasty Status post total hip replacement, left History of cardiac catheterization History of History of cholecystectomy H/O coronary artery bypass surgery (05/18/12) History of coronary artery stent placement (01/12/18) H/O sinus surgery history closed fissure Ileostomy status H/O colectomy left thumb surgery H/O total hysterectomy ileostomy Social History household members: spouse and none Smoking Status: Former smoker quit date: 03/08/12 how long ago did patient quit smoking: quit in 2012; 0.5-1ppd x 30yrs alcohol intake: never substance use type: does not use diet: diabetic caffeine: No eating out: 1-3 times/week what type of physical activity do you participate in: none seatbelt use: always do you feel safe at home: Yes ROS ROS Narrative Decreased urine output, decreased oral intake. Some chills, no fever. All review of systems were negative except as mentioned above in the history of present illness and the other review of systems. Vital Signs Vital Signs Vital Signs: 03/10/24 14:25 03/10/24 15:29 03/10/24 16:00 Temperature 35.8 C L Temperature Source Axillary Pulse Rate 115 H 107 H 100 Respiratory Rate 18 22 H Blood Pressure 128/83 H 138/81 H 167/88 H Blood Pressure Mean 98 100 114 Pulse Ox 99 96 98 Oxygen Delivery Method Room Air Nasal Cannula Oxygen Flow Rate (L/min) 2 03/10/24 16:56 03/10/24 17:00 Temperature 36.6 C Temperature Source Pulse Rate 100 100 Respiratory Rate 28 H Blood Pressure 167/88 H 129/68 H Blood Pressure Mean 114 88 Pulse Ox 98 98 Oxygen Delivery Method Oxygen Flow Rate (L/min) Weight Weight: 91 kg Body Mass Index (BMI) 31.4 Physical Exam Const alert Constitutional Narrative: Listless. Afebrile. Nontoxic. HEENT normocephalic, head/scalp atraumatic and hearing grossly normal bilaterally HEENT Narrative: Mucous membranes dry Eyes Eyes Narrative: No icterus Neck no lymphadenopathy Neck Narrative: No thyromegaly Resp normal respiratory effort, no retractions, no use of accessory muscles and clear to auscultation bilaterally Cardio regular rate, regular rhythm, S1 normal heart sound and S2 normal heart sound GI normal to inspection, nondistended, normoactive bowel sounds, soft to palpation, non-tender and non-distended GI Narrative: Colostomy left lower quadrant with liquid stool. Extremity normal to inspection and full ROM Skin Skin Narrative: Port in right upper chest without any surrounding erythema Neuro moves all extremities Sensorium / Orientation: awake and alert Psych affect normal Results Lab / Micro Data Attestation: I reviewed the patient's lab results. 03/10/24 14:46 03/10/24 14:46 Labs: Laboratory Results - last 24 hr 03/10/24 14:46: WBC 16.1 H, RBC 6.15 H, Hgb 16.9 H, Hct 52.9 H, MCV 86.0, MCH 27.5, MCHC 31.9 L, RDW Std Deviation 52.8 H, RDW Coeff of Jan 18.2 H, Plt Count 290, MPV 12.1 H, Immature Gran % (Auto) 1.200 H, Neut % (Auto) 62.9, Lymph % (Auto) 25.5, [place] % (Auto) 7.2, Eos % (Auto) 2.4, Baso % (Auto) 0.8, Absolute Neuts (auto) 10.2 H, Absolute Lymphs (auto) 4.12, Nucleated RBC % 0.4, Sodium 133 L, Potassium 4.7, Chloride 106, Carbon Dioxide 16.0 L, Anion Gap 10, BUN 74 H, Creatinine 5.47 H, Est GFR (MDRD) Af Amer 10 L, Est GFR (MDRD) Non-Af 8 L, BUN/Creatinine Ratio 13.5, Glucose 233 H, Calcium 10.4 H, Magnesium 2.1, Total Bilirubin 0.70, Direct Bilirubin 0.17, AST 95 H, ALT 53, Alkaline Phosphatase 251 H, Total Protein 9.7 H, Albumin 3.8, Globulin 5.9 H, Lipase 57 Micro: Microbiology 03/10/24 14:46 Mucosa - Nose SARS-CoV-2, Influenza & RSV (PCR) - Final Imaging Radiology Impression Abdomen/Pelvis CT 03/10/24 15:42 IMPRESSION: 1. No acute abnormalities of the abdomen or pelvis. 2. Status post colectomy with left lower quadrant ileostomy. Electronically Signed: Rip Buchanan MD at 16:22 EST , Assessment & Plan Assessment/Plan (1) Acute kidney injury: PLAN: Likely prerenal given dehydration from the gastroenteritis and decreased oral intake. Continue with IV fluids and monitor. No need for renal replacement therapy at this time. (2) Gastroenteritis: PLAN: I suspect a viral gastroenteritis because of the vomiting whereas before with the patient's short gut syndrome she did not have vomiting. Supportive management with IV fluids, IV antiemetics and pain medication if needed. Enteric panel ordered in the emergency room. PLAN: Plan Chronic conditions * Shorted syndrome s/p proctocolectomy w J-pouch, proximal diversion w loop ileostom w 270 cm small bowel remaining. Chronically takes loperamide PRN, PPI and Lomotil QID * GERD: PPI * Coronary artery disease: Continue with aspirin, clopidogrel, high intensity statin. * MGUS: f/u w oncology * DM2: SSI for now. Add glargine if able to tolerate diet. VTE prophylaxis: SQ heparin Disposition: To be determined. I anticipate that the patient will require hospitalization for at least 2 days to make sure that she is continuing to tolerate oral, continue improvement of her creatinine. Charges/Coding Visit Charges Inpatient E&M: 49205 Init Hosp L3
[2024-03-10] MEDS: 0.9% Normal Saline (1000mL) 1,000 ML 150 ML IV (18:11)
--- NOTE | 2024-03-10 20:40 | NURSING ---
pt unsure of what medications she takes. significant other to bring in home med list and medications that our pharmacy doesn't have. plans to bring in Mar 11 2024.
[2024-03-10 21:48] LABS: Mucous, Urine 0 SEEN /hpf (<or=2+)
[2024-03-10 21:54] LABS: Color, Urine Yellow (Yellow); Glucose, Dipstick Normal (Normal); Ketone-Dipstick Negative (Negative); Leukocyte Esterase-Dipstick 25 /ul (Negative); Nitrite-Dipstick Negative (Negative); Occult Blood-Urine 150 /ul (Negative); Protein-Dipstick 100 mg/dl (Negative); Specific Gravity, Urine 1.025 (1.002-1.030); Urine Clarity Cloudy (Clear); Urine Urobilinogen Normal (Normal)
[2024-03-10 22:03] LABS: Urine Bilirubin Dipstick 1 mg/dL (Negative)
[2024-03-10 22:10] LABS: White Blood Cells 0-5 SEEN /hpf (0-5)
[2024-03-10 22:11] LABS: Bacteria RARE /hpf (None Seen); Red Blood Cells-Urine 0-5 SEEN /hpf (0-5); Renal Epithelial Cells 0-5 SEEN /hpf (0-5); Squamous Epithelial Cells - UA 5-10 SEEN /hpf (5-10); Transitional Epithelial - Ur 0-5 SEEN /hpf (0-5)
[2024-03-10] MEDS: DULoxetine Hcl 60 MG Capsule PO (22:26)
[2024-03-10] MEDS: Metoprolol Tartrate 25 MG Tablet 75 MG PO (22:26)
[2024-03-10] MEDS: Isosorbide DN 30 MG Tablet PO (22:27)
[2024-03-10] MEDS: Heparin Injection (Vial) 5,000 UNIT/ML VIAL 5000 UNIT SC (22:27)
[2024-03-10] MEDS: Mirtazapine 15 MG Tablet 7.5 MG PO (22:27)
[2024-03-10] MEDS: Dicyclomine 10 MG Capsule PO (22:27)
[2024-03-10] MEDS: Pantoprazole Sodium 40 MG Tablet PO (22:27)
[2024-03-10] MEDS: buPROPion 75 MG Tablet PO (22:27)
[2024-03-10 22:51] LABS: Bedside Glucose 129 mg/dL (74-106)
[2024-03-11] VITALS (7 sets, daily range): BP systolic 116–139; BP diastolic 47–76; PULSE 67–88; RESP 14–18; TEMP 36.4–36.6; O2SAT 93–100
[2024-03-11] MEDS: 0.9% Normal Saline (1000mL) 1,000 ML 150 ML IV (01:05)
[2024-03-11] MEDS: Acetaminophen 325 MG Tablet 650 MG PO (04:39)
[2024-03-11 06:51] LABS: Bedside Glucose 122 mg/dL (74-106)
[2024-03-11 08:28] LABS: Anion Gap 6 (5-15); BUN 72 mg/dL (7-18); BUN/Creat Ratio 16.7 RATIO (10-20); Chloride 115 mmol/L (98-107); EST Glomerular Filtration Rate 11 mL/min (>60); Est Glom Filt Rate - Afr Amer 13 mL/min (>60); Estimated Creatinine Clearance 14.86 ml/min; Glucose 130 mg/dL (74-106); Potassium 4.5 mmol/L (3.5-5.1); Sodium Level 136 mmol/L (136-145)
[2024-03-11] MEDS: Fluticasone 0.05% 1 SPRAY NASAL.SRY 2 SPRAY NASAL (08:52)
[2024-03-11] MEDS: buPROPion 75 MG Tablet PO ×2 (08:54→22:14)
[2024-03-11] MEDS: Metoprolol Tartrate 25 MG Tablet 75 MG PO ×2 (08:54→22:13)
[2024-03-11] MEDS: Pregabalin 75 MG Capsule PO (08:54)
[2024-03-11] MEDS: DULoxetine Hcl 60 MG Capsule PO ×2 (08:54→22:13)
[2024-03-11] MEDS: Primidone 50 MG Tablet 25 MG PO (08:55)
[2024-03-11] MEDS: Clopidogrel Bisulfate 75 MG Tablet PO (08:56)
[2024-03-11] MEDS: Pantoprazole Sodium 40 MG Tablet PO ×2 (08:56→22:14)
[2024-03-11] MEDS: Galantamine Hydrobromide 4 MG Tablet 8 MG PO ×2 (08:57→22:14)
[2024-03-11] MEDS: Dicyclomine 10 MG Capsule PO ×2 (08:58→22:14)
[2024-03-11] MEDS: lamoTRIgine 100 MG Tablet 200 MG PO (08:58)
[2024-03-11] MEDS: Isosorbide DN 30 MG Tablet PO ×2 (08:59→22:14)
[2024-03-11] MEDS: Aspirin E.C. 81 MG Tablet PO (08:59)
[2024-03-11] MEDS: 0.9% Normal Saline (1000mL) 1,000 ML 100 ML IV ×2 (08:59→18:20)
[2024-03-11] MEDS: Heparin Injection (Vial) 5,000 UNIT/ML VIAL 5000 UNIT SC ×2 (09:00→22:11)
--- NOTE | 2024-03-11 10:13 | PN.HOSP_ITS ---
Subjective Subjective Doing well, feels a bit better. Nausea and vomiting have resolved Objective Data Objective Data Vital Signs: Vital Signs Temp Pulse Resp BP Pulse Ox O2 Del Method O2 Flow Rate 97.5 F L 88 18 118/76 96 Room Air 2 03/11/24 04:37 03/11/24 08:54 03/11/24 04:37 03/11/24 08:54 03/11/24 04:37 03/11/24 04:43 03/10/24 22:21 Oxygen Flow Rate (L/min) 2 Oxygen Delivery Method Room Air Weight: 194 lb 0.108 oz Body Mass Index (BMI) 30.4 Intake & Output: Intake and Output for Last 24 Hours 03/10/24 03/11/24 03/12/24 03:59 03:59 03:59 Intake Total 2356.25 / 2356.25 1200.0 / 1200.0 Output Total 1300 / 1300 1150 / 1150 Balance 1056.25 / 1056.25 50.0 / 50.0 Lab / Micro Data 03/10/24 14:46 03/11/24 07:40 Labs: Laboratory Results - last 24 hr 03/10/24 14:46: WBC 16.1 H, RBC 6.15 H, Hgb 16.9 H, Hct 52.9 H, MCV 86.0, MCH 27.5, MCHC 31.9 L, RDW Std Deviation 52.8 H, RDW Coeff of Jan 18.2 H, Plt Count 290, MPV 12.1 H, Immature Gran % (Auto) 1.200 H, Neut % (Auto) 62.9, Lymph % (Auto) 25.5, [place] % (Auto) 7.2, Eos % (Auto) 2.4, Baso % (Auto) 0.8, Absolute Neuts (auto) 10.2 H, Absolute Lymphs (auto) 4.12, Nucleated RBC % 0.4, Sodium 133 L, Potassium 4.7, Chloride 106, Carbon Dioxide 16.0 L, Anion Gap 10, BUN 74 H, Creatinine 5.47 H, Est GFR (MDRD) Af Amer 10 L, Est GFR (MDRD) Non-Af 8 L, BUN/Creatinine Ratio 13.5, Glucose 233 H, Calcium 10.4 H, Magnesium 2.1, Total Bilirubin 0.70, Direct Bilirubin 0.17, AST 95 H, ALT 53, Alkaline Phosphatase 251 H, Total Protein 9.7 H, Albumin 3.8, Globulin 5.9 H, Lipase 57 03/10/24 21:39: Urine Color Yellow, Urine Clarity Cloudy, Urine pH 6.0, Ur Specific [place] 1.025, Urine Protein 100 H, Urine Glucose (UA) Normal, Urine Ketones Negative, Urine Occult Blood 150 H, Urine Nitrite Negative, Urine Bilirubin 1 H, Urine Urobilinogen Normal, Ur Leukocyte Esterase 25 H, Urine RBC 0-5 SEEN, Urine WBC 0-5 SEEN, Ur Squamous Epith Cells 5-10 SEEN, Ur Transition Epith Cell 0-5 SEEN, Ur Renal Epithelial Cell 0-5 SEEN, Urine Bacteria RARE, Urine Mucus 0 SEEN 03/10/24 22:18: POC Glucose 129 H 03/11/24 06:31: POC Glucose 122 H 03/11/24 07:40: Sodium 136, Potassium 4.5, Chloride 115 H, Carbon Dioxide 15.0 L , Anion Gap 6, BUN 72 H, Creatinine 4.30 H, Estim Creat Clear Calc 14.86, Est GFR (MDRD) Af Amer 13 L, Est GFR (MDRD) Non-Af 11 L, BUN/Creatinine Ratio 16.7, Glucose 130 H, Calcium 8.0 L Micro: Microbiology 03/10/24 15:23 Stool Enteric Bacteriology - Final Norovirus 03/10/24 14:46 Mucosa - Nose SARS-CoV-2, Influenza & RSV (PCR) - Final Radiography Diagnostic Testing: Radiology Impression Abdomen/Pelvis CT 03/10/24 15:42 IMPRESSION: 1. No acute abnormalities of the abdomen or pelvis. 2. Status post colectomy with left lower quadrant ileostomy. Electronically Signed: Rip Buchanan MD at 16:22 EST , Physical Exam Narrative General: Alert, Oriented x3, Cooperative, No apparent distress HEENT: Atraumatic, PERRLA, EOMI, Normocephalic Oral: Moist Mucosa Neck: Supple, No JVD Lungs: Diminished, Normal air movement, No rhonchi, No wheeze, No rales Cardiovascular: Regular rate, Regular Rhythm, Normal S1, Normal S2, No murmurs, right chest port Abdomen: Soft, Non Tender, Non-Distended, No Hepato-splenomegaly Extremities: No edema, Capillary Refill Less than 3 Seconds Skin: No rashes, No breakdown Musculoskeletal: No Tenderness to Palpation of Joints or Extremities Neurological: No focal neurological deficits, Motor Exam 5/5 strength throughout, Sensory exam intact to light touch and pain Psych/Mental Status: Normal Affect, Appropriate Assessment & Plan Assessment/Plan (1) Acute kidney injury: (2) Gastroenteritis: PLAN: Plan 1. RALPH due to dehydration secondary to gastroenteritis from norovirus in the setting of short gut and chronic kidney disease ? Continue with IV fluids ? Her renal function is returning back to her baseline slowly ? Given her short gut she will likely not improve significantly with just oral intake therefore we will continue with IV fluids ? Baseline creatinine is around 1.7 Chronic conditions * Shorted syndrome s/p proctocolectomy w J-pouch, proximal diversion w loop ileostom w 270 cm small bowel remaining. Chronically takes loperamide PRN, PPI and Lomotil QID * GERD: PPI * Coronary artery disease: Continue with aspirin, clopidogrel, high intensity statin. * MGUS: f/u w oncology * DM2: SSI for now. Add glargine if able to tolerate diet. DVT: Heparin Charges/Coding Visit Charges Inpatient E&M: 06950 Subs Hosp L2
[2024-03-11 10:38] LABS: Absolute Lymphocyte Count 2.33 X10^3/uL (0.83-4.51); Absolute Neutrophil Count 9.3 X10^3/uL (2.0-7.7); Basophil# 0.09 X10^3/uL; Basophil% 0.7 % (0-1); Eosinophil# 0.28 X10^3/uL; Eosinophils% 2.1 % (0-5); Hematocrit 41.6 % (37-47); Hemoglobin 13.4 g/dL (12.0-15.0); Lymphocyte # 2.33 X10^3/ul (0.83-4.51); Lymphocyte % 17.6 % (19-41); Mean Corp Hgb Conc 32.2 g/dL (32-36); Mean Corpuscular Hgb 27.4 pg (27.0-32.0); Mean Corpuscular Volume 85.1 fL (81-99); Mean Platelet Vol. 11.8 fl (6.2-12.0); Monocyte# 1.14 X10^3/uL; Monocyte% 8.6 % (0-10); NRBC Flagged by Analyzer 0.2 % (0-5); Neutrophil # 9.33 X10^3/uL (2.7-7.7); Neutrophil % 70.4 % (47-70); Platelet Count 203 K/mm3 (150-450); RBC Distribution Width CV 17.2 % (11.6-14.6); RBC Distribution Width SD 52.7 fl (35.1-43.9); Red Blood Count 4.89 M/mm3 (4.2-5.4); White Blood Count 13.3 K/mm3 (4.4-11.0)
[2024-03-11 12:06] LABS: Bedside Glucose 131 mg/dL (74-106)
--- NOTE | 2024-03-11 13:04 | CASEMGMT ---
SVETLANA RAINEY Assessment: Face to Face with pt for initial transition planning/care coordination assessment. SVETLANA RAINEY introduced self and role at [facility], pt voices understanding and consents to assessment. Pt is A&O x4 and answers all questions appropriately at this time. Pt lying in bed in no distress. Care providers, pharmacy, and demographics verified/updated. Strata: 3 Admitting Dx: RALPH PCP: Alcides Specialists: RENNY; Ephra[facility] Pulmonology; Sina, Gastrology; , Nephrology; Jenn, Oncology; Kendrick, Neurology; Jacky, nephrology Preferred Pharmacy: [facility] Insurance: [employer] Prescription Benefit: yes LNOK: Partner, Azucena Living Arrangements: Pt lives alone in an apartment with 1 step to enter. ADLs: Pt reports I at baseline Transportation: Pt drives self and denies concerns with transportation. DME: Walker, cane, WC, shower bench, CPAP, O2 through [employer] - has portable tanks and concentrator. HHC/SNF: Denies Hx of. Pt states no concerns with going home at time of dc. Pt states no further concerns/needs. CM to follow. Advised pt to ask CM if any further question/concerns/needs arise, voices understanding. Pt Goal: Home Plan: Home, follow for O2. Has concentrator and portable tank at home through [employer] but not on O2 here. Pt states only uses it PRN. Jada MOTA CM
[2024-03-11] MEDS: Hyoscyamine Sulfate 0.125 MG Tablet PO (14:49)
[2024-03-11] MEDS: Buprenorphine 15 MCG PATCH.TDWK 1 PATCH TD (16:42)
[2024-03-11 17:04] LABS: Bedside Glucose 156 mg/dL (74-106)
[2024-03-11] MEDS: Mirtazapine 15 MG Tablet 7.5 MG PO (22:14)
[2024-03-11 22:40] LABS: Bedside Glucose 147 mg/dL (74-106)
[2024-03-12] VITALS (8 sets, daily range): BP systolic 122–140; BP diastolic 49–65; PULSE 67–76; RESP 18; TEMP 36.6–36.8; O2SAT 95–98
[2024-03-12] MEDS: Lactated Ringers 1,000 ML 100 ML IV ×3 (03:37→23:41)
[2024-03-12 07:05] LABS: Bedside Glucose 120 mg/dL (74-106)
[2024-03-12 07:20] LABS: Anion Gap 4 (5-15); BUN 59 mg/dL (7-18); BUN/Creat Ratio 18.1 RATIO (10-20); Chloride 117 mmol/L (98-107); Creatinine, Serum 3.26 mg/dL (0.55-1.02); EST Glomerular Filtration Rate 15 mL/min (>60); Est Glom Filt Rate - Afr Amer 18 mL/min (>60); Glucose 137 mg/dL (74-106); Potassium 4.1 mmol/L (3.5-5.1); Sodium Level 137 mmol/L (136-145)
--- NOTE | 2024-03-12 09:17 | PN.HOSP_ITS ---
Subjective Subjective Doing well, no issues overnight Objective Data Objective Data Vital Signs: Vital Signs Temp Pulse Resp BP Pulse Ox O2 Del Method O2 Flow Rate 98.1 F 70 18 128/55 H 98 Room Air 2 03/12/24 03:40 03/12/24 03:40 03/12/24 03:40 03/12/24 03:40 03/12/24 03:40 03/12/24 03:40 03/10/24 22:21 Oxygen Flow Rate (L/min) 2 Oxygen Delivery Method Room Air Weight: 194 lb 0.108 oz Body Mass Index (BMI) 30.4 Intake & Output: Intake and Output for Last 24 Hours 03/11/24 03/12/24 03/13/24 03:59 03:59 03:59 Intake Total 2356.25 / 2356.25 3763.33 / 3763.33 Output Total 1300 / 1300 2450 / 2450 600 / 600 Balance 1056.25 / 1056.25 1313.33 / 1313.33 -600 / -600 Lab / Micro Data 03/11/24 07:40 03/12/24 06:25 Labs: Laboratory Results - last 24 hr 03/11/24 07:40: WBC 13.3 H, RBC 4.89, Hgb 13.4, Hct 41.6, MCV 85.1, MCH 27.4, MCHC 32.2, RDW Std Deviation 52.7 H, RDW Coeff of Jan 17.2 H, Plt Count 203, MPV 11.8, Immature Gran % (Auto) 0.600, Neut % (Auto) 70.4 H, Lymph % (Auto) 17.6 L, [place] % (Auto) 8.6, Eos % (Auto) 2.1, Baso % (Auto) 0.7, Absolute Neuts (auto) 9.3 H, Absolute Lymphs (auto) 2.33, Nucleated RBC % 0.2 03/11/24 11:43: POC Glucose 131 H 03/11/24 16:41: POC Glucose 156 H 03/11/24 22:07: POC Glucose 147 H 03/12/24 06:25: Sodium 137, Potassium 4.1, Chloride 117 H, Carbon Dioxide 16.0 L , Anion Gap 4 L, BUN 59 H, Creatinine 3.26 H, Estim Creat Clear Calc 19.60, Est GFR (MDRD) Af Amer 18 L, Est GFR (MDRD) Non-Af 15 L, BUN/Creatinine Ratio 18.1, Glucose 137 H, Calcium 8.0 L 03/12/24 06:44: POC Glucose 120 H Micro: Microbiology 03/10/24 15:23 Stool Enteric Bacteriology - Final Norovirus 03/10/24 14:46 Mucosa - Nose SARS-CoV-2, Influenza & RSV (PCR) - Final Physical Exam Narrative General: Alert, Oriented x3, Cooperative, No apparent distress HEENT: Atraumatic, PERRLA, EOMI, Normocephalic Oral: Moist Mucosa Neck: Supple, No JVD Lungs: Diminished, Normal air movement, No rhonchi, No wheeze, No rales Cardiovascular: Regular rate, Regular Rhythm, Normal S1, Normal S2, No murmurs, right chest port Abdomen: Soft, Non Tender, Non-Distended, No Hepato-splenomegaly Extremities: No edema, Capillary Refill Less than 3 Seconds Skin: No rashes, No breakdown Musculoskeletal: No Tenderness to Palpation of Joints or Extremities Neurological: No focal neurological deficits, Motor Exam 5/5 strength throughout, Sensory exam intact to light touch and pain Psych/Mental Status: Normal Affect, Appropriate Assessment & Plan Assessment/Plan (1) Acute kidney injury: (2) Gastroenteritis: PLAN: Plan 1. RALPH due to dehydration secondary to gastroenteritis from norovirus in the setting of short gut and chronic kidney disease ? Continue with IV fluids ? Her renal function is returning back to her baseline slowly ? Given her short gut she will likely not improve significantly with just oral intake therefore we will continue with IV fluids ? Baseline creatinine is around 1.7 Chronic conditions * Shorted syndrome s/p proctocolectomy w J-pouch, proximal diversion w loop ileostom w 270 cm small bowel remaining. Chronically takes loperamide PRN, PPI and Lomotil QID * GERD: PPI * Coronary artery disease: Continue with aspirin, clopidogrel, high intensity statin. * MGUS: f/u w oncology * DM2: SSI for now. Add glargine if able to tolerate diet. DVT: Heparin Charges/Coding Visit Charges Inpatient E&M: 36021 Subs Hosp L2
[2024-03-12] MEDS: Clopidogrel Bisulfate 75 MG Tablet PO (10:12)
[2024-03-12] MEDS: Fluticasone 0.05% 1 SPRAY NASAL.SRY 2 SPRAY NASAL (10:12)
[2024-03-12] MEDS: Metoprolol Tartrate 25 MG Tablet 75 MG PO ×2 (11:51→22:50)
[2024-03-12] MEDS: Isosorbide DN 30 MG Tablet PO ×2 (11:52→22:50)
[2024-03-12] MEDS: buPROPion 75 MG Tablet PO ×2 (11:53→22:49)
[2024-03-12] MEDS: Galantamine Hydrobromide 4 MG Tablet 8 MG PO ×2 (11:53→22:50)
[2024-03-12] MEDS: Pantoprazole Sodium 40 MG Tablet PO ×2 (11:55→22:50)
[2024-03-12] MEDS: DULoxetine Hcl 60 MG Capsule PO ×2 (11:55→22:49)
[2024-03-12] MEDS: Dicyclomine 10 MG Capsule PO ×2 (11:55→22:49)
[2024-03-12] MEDS: Primidone 50 MG Tablet 25 MG PO (11:56)
[2024-03-12] MEDS: lamoTRIgine 100 MG Tablet 200 MG PO (12:00)
[2024-03-12] MEDS: Heparin Injection (Vial) 5,000 UNIT/ML VIAL 5000 UNIT SC ×2 (12:02→22:53)
[2024-03-12] MEDS: Aspirin E.C. 81 MG Tablet PO (12:16)
[2024-03-12] MEDS: Pregabalin 75 MG Capsule PO (12:29)
[2024-03-12] MEDS: Insulin Lispro 100 UNIT/ML INSULN.PEN SC ×3 (13:43→22:54)
[2024-03-12 14:05] LABS: Bedside Glucose 203 mg/dL (74-106)
[2024-03-12 17:49] LABS: Bedside Glucose 229 mg/dL (74-106)
[2024-03-12] MEDS: Mirtazapine 15 MG Tablet 7.5 MG PO (22:49)
[2024-03-12 23:21] LABS: Bedside Glucose 242 mg/dL (74-106)
[2024-03-13 04:24] VITALS: BP 156/58; PULSE 74; RESP 18; TEMP 36.7; O2SAT 95
[2024-03-13 06:54] LABS: Bedside Glucose 138 mg/dL (74-106)
[2024-03-13 08:00] VITALS: O2SAT 93
[2024-03-13 08:39] LABS: Anion Gap 5 (5-15); BUN 41 mg/dL (7-18); BUN/Creat Ratio 19.2 RATIO (10-20); Calcium,Total 8.2 mg/dL (8.5-10.1); Chloride 117 mmol/L (98-107); Creatinine, Serum 2.13 mg/dL (0.55-1.02); EST Glomerular Filtration Rate 25 mL/min (>60); Est Glom Filt Rate - Afr Amer 30 mL/min (>60); Glucose 151 mg/dL (74-106); Sodium Level 140 mmol/L (136-145)
[2024-03-13 09:00] VITALS: BP 129/49; PULSE 71; RESP 18; TEMP 36.8; O2SAT 98
[2024-03-13] MEDS: lamoTRIgine 100 MG Tablet 200 MG PO (09:12)
[2024-03-13] MEDS: Galantamine Hydrobromide 4 MG Tablet 8 MG PO (09:13)
[2024-03-13] MEDS: Dicyclomine 10 MG Capsule PO (09:13)
[2024-03-13] MEDS: DULoxetine Hcl 60 MG Capsule PO (09:13)
[2024-03-13] MEDS: Primidone 50 MG Tablet 25 MG PO (09:13)
[2024-03-13] MEDS: Clopidogrel Bisulfate 75 MG Tablet PO (09:13)
[2024-03-13] MEDS: Aspirin E.C. 81 MG Tablet PO (09:14)
[2024-03-13] MEDS: Pregabalin 75 MG Capsule PO (09:14)
[2024-03-13] MEDS: buPROPion 75 MG Tablet PO (09:14)
[2024-03-13] MEDS: Isosorbide DN 30 MG Tablet PO (09:14)
[2024-03-13] MEDS: Fluticasone 0.05% 1 SPRAY NASAL.SRY 2 SPRAY NASAL (09:14)
[2024-03-13] MEDS: Heparin Injection (Vial) 5,000 UNIT/ML VIAL 5000 UNIT SC (09:14)
[2024-03-13 09:24] VITALS: BP 129/49; PULSE 71
[2024-03-13] MEDS: Metoprolol Tartrate 25 MG Tablet 75 MG PO (09:24)
--- NOTE | 2024-03-13 09:34 | PCM.DC ---
Discharge Instructions Diet Discharge Diet: Carb Control Diet DC O2, CPAP, BIPAP needs Home O2 Discharge instructions: No Dressing / Incision Discharge Activity: Return to Normal Activity Dressing / Incision Call your doctor if you observe: Fever of 101 or Higher, Shortness of breath, Dizziness, Fainting spells, Swelling in the ankles, Chest pain and Increased palpitations (irregular heartbeat) Follow Up Care Test Results: Test results from this visit will be discussed in further detail at your follow-up appointment, if applicable. Discharge Plan Admission Admit Date/Time: 03/10/24 16:45 Attending Provider: Juan Carlos Gerber Primary Care Provider: Mala Mcgrath Consulting Providers: Shiva Chandler Additional Instructions / Restrictions: Follow-up with your primary care physician to monitor your kidney function Discharge Orders/Prescriptions Prescriptions: Continued cyclobenzaprine 10 mg tablet 10 mg PO TID PRN (Reason: muscle spasm) Qty: 30 0RF Nurtec ODT 75 mg tablet,disintegrating 75 mg PO DAILY PRN (Reason: migraine headache) Qty: 16 5RF aspirin 81 mg tablet,delayed release (DR/EC) 81 mg PO DAILY Qty: 30 11RF nitroglycerin 0.4 mg tablet, sublingual 0.4 mg sublingual Q5-15M PRN (Reason: chest pain) Qty: 25 3RF Rx Instructions: do not exceed 3 doses per episode mirtazapine 7.5 mg tablet 7.5 mg PO QHS Qty: 30 1RF hyoscyamine sulfate 0.125 mg tablet 0.125 mg PO BID-QID PRN (Reason: dyspepsia) duloxetine 60 mg capsule,delayed release(DR/EC) 60 mg PO BID galantamine 16 mg capsule,ext rel. 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 [employer] [facility] See Rx Instructions .ROUTE .MEDSUPPLY Rx Instructions: As directed buprenorphine HCl 150 mcg film 150 mcg buccal Q12H metoprolol tartrate 25 mg tablet 75 mg PO BID Rx Instructions: take 25 mg with a 50 mg tablet twice a day to = 75 mg twice a day; metoprolol tartrate 50 mg tablet 50 mg PO BID Patient Comments: take 25 mg orally with a 50 mg tablet twice a day to = 75 mg twice a day; melatonin 5 mg tablet 5 mg PO QHS PRN (Reason: sleep) Humalog KwikPen Insulin 200 unit/mL (3 mL) insulin pen 1 sliding scale dose subcut ACHS Patient Comments: pt has an insulin pump. she states it give continuous supply, and at meals she enters carbs, and it performs calculations and supplies insulin. triamcinolone acetonide 0.1 % ointment 1 applic topical DAILY PRN (Reason: psoriasis) lamotrigine 200 mg tablet 200 mg PO DAILY albuterol sulfate 90 mcg/actuation HFA aerosol inhaler 2 puff INHALATION BID PRN (Reason: SOB) dicyclomine 10 mg Capsule 10 mg PO BID PRN (Reason: stomach) pantoprazole [Protonix] 40 mg tablet,delayed release (DR/EC) 40 mg PO BID Qty: 60 11RF atorvastatin 80 mg tablet 80 mg PO QHS Qty: 90 3RF Patient Comments: cholesterol (DME) Dexcom G6 Sensor Device See Rx Instructions .Route Qty: 9 1RF Rx Instructions: As directed isosorbide dinitrate 30 mg tablet 30 mg PO BID Qty: 60 11RF fluticasone propionate [Flonase Allergy Relief] 50 mcg/actuation spray,suspension 2 spray intranasal DAILY Qty: 16 3RF Rx Instructions: administer into each nostril clopidogrel 75 mg tablet 75 mg PO DAILY Qty: 28 11RF pregabalin 75 mg capsule 75 mg PO DAILY Qty: 30 1RF Repatha SureClick 140 mg/mL pen injector 140 mg subcut Q2W Qty: 6 3RF (DME) Omnipod 5 G6-G7 Pods (Gen 5) Cartridge See Rx Instructions .Route Qty: 45 1RF Rx Instructions: change every 48 hours Held diphenoxylate-atropine [Lomotil] 2.5-0.025 mg tablet 1 tab PO TID PRN (Reason: diarrhea) Hold Instructions: Resume on 03/16/24. Referrals / Follow Up: Mala Mcgrath MD [Primary Care Provider] - Within 1 Week Disposition Disposition (needs filled in before D/C Order can be placed): Home, Self Care
[2024-03-13] MEDS: Pantoprazole Sodium 40 MG Tablet PO (09:37)
--- NOTE | 2024-03-13 11:15 | PCM.DC.SUM ---
Providers Date of Admission: 03/10/24 Primary Care Physician: Dr. Mala Mcgrath MD Reason For Visit: RALPH Diagnosis Discharge Diagnosis (1) Acute kidney injury: Status: Acute Code(s): N17.9 - Acute kidney failure, unspecified (2) Gastroenteritis: Status: Resolved Code(s): K52.9 - Noninfective gastroenteritis and colitis, unspecified Medications at Discharge Home Medications blood-glucose meter,continuous (Dexcom G6 Compound Finisher) 11/15/21 cyclobenzaprine 10 mg tablet 10 mg PO TID PRN muscle spasm #30 tabs 02/24/23 pantoprazole 40 mg tablet,delayed release (Protonix) 40 mg PO BID GERD #60 tabs 04/29/23 albuterol sulfate 90 mcg/actuation aerosol inhaler 2 puff inhalation BID PRN SOB 05/01/23 lamotrigine 200 mg tablet 200 mg PO DAILY mood 05/01/23 diphenoxylate-atropine 2.5 mg-0.025 mg tablet (Lomotil) 1 tab PO TID PRN diarrhea 06/21/23 atorvastatin 80 mg tablet 80 mg PO QHS CHOLESTEROL LOWERING #90 tabs 07/22/23 buprenorphine HCl 150 mcg buccal film 150 mcg buccal Q12H pain 08/04/23 metoprolol tartrate 25 mg tablet 75 mg PO BID bp 09/18/23 rimegepant 75 mg disintegrating tablet (Nurtec ODT) 75 mg PO DAILY PRN migraine headache #16 tabs 10/29/23 blood-glucose sensor (Dexcom G6 Sensor device) #9 ea 12/07/23 isosorbide dinitrate 30 mg tablet 30 mg PO BID heart #60 tabs 12/08/23 duloxetine 60 mg capsule,delayed release 60 mg PO BID mental health 12/23/23 hyoscyamine sulfate 0.125 mg tablet 0.125 mg PO BID-QID PRN dyspepsia 12/23/23 mirtazapine 7.5 mg tablet 7.5 mg PO QHS mental health #30 tabs 12/23/23 fluticasone propionate 50 mcg/actuation nasal spray,suspension (Flonase Allergy Relief) 2 spray intranasal DAILY allergies #16 grams 01/04/24 bupropion HCl 75 mg tablet 75 mg PO BID mental health #60 tabs 02/01/24 galantamine 16 mg 24 hr capsule,extended release 16 mg PO QDAY memory 02/01/24 clopidogrel 75 mg tablet 75 mg PO DAILY anti platelet #28 TABLETS 02/02/24 insulin lispro 200 unit/mL (3 mL) subcutaneous pen (Humalog KwikPen U-200 Insulin) 1 sliding scale dose subcut ACHS diabetes 02/17/24 melatonin 5 mg tablet 5 mg PO QHS PRN sleep 02/17/24 metoprolol tartrate 50 mg tablet 50 mg PO BID blood pressure 02/17/24 triamcinolone acetonide 0.1 % topical ointment 1 applic topical DAILY PRN psoriasis 02/17/24 pregabalin 75 mg capsule 75 mg PO DAILY pain #30 caps 02/22/24 aspirin 81 mg tablet,delayed release 81 mg PO DAILY heart health #30 tabs 02/24/24 nitroglycerin 0.4 mg sublingual tablet 0.4 mg sublingual Q5-15M PRN chest pain #25 tabs 02/24/24 evolocumab 140 mg/mL subcutaneous pen injector (Repatha SureClick) 140 mg subcut Q2W #6 mL 02/29/24 primidone 50 mg tablet See Rx Instructions .Route .COMPLEX #60 tabs 03/07/24 insulin pump cart,auto,BT,G6/7 (Omnipod 5 G6-G7 Pods (Gen 5) subcutaneous cartridge) #45 ea 03/10/24 dicyclomine 10 mg capsule 10 mg PO BID PRN stomach 03/11/24 Hospital Course Operations None Procedures None Summary of Care Provided Minutes Spent on Discharge: 33 Hospital Course: Per HPI: ASHLEY MÉNDEZ, is a 63 F who presents with nausea, vomiting and diarrhea since this past Wednesday. This is atypical from her short gut syndrome where she does have voluminous diarrhea but she is having vomiting. This is persisted and she is now having abdominal pain with her retching. She presented to emergency room where she was noted to be in acute kidney injury with a creatinine of 5.4 (baseline is 1.75). In the emergency room, she received IV fluids, ondansetron, morphine and Bentyl. Hospital Course: 1. RALPH secondary to dehydration from gastroenteritis due to norovirus in the setting of short gut and chronic kidney disease?63-year-old female presented to the hospital with nausea, vomiting, and diarrhea. The diarrhea is fairly normal because of her short gut syndrome and she is on motility agents for this. She states that the diarrhea was significantly worse than her baseline. Her creatinine on admission was 5.47, down to 2.13 today. She was received several liters of IV fluid secondary to the her inability to keep up with her dehydration orally. Her diarrhea has significantly improved though I do recommend holding her Lomotil on discharge for several more days. I discussed with her the plan for discharge she expressed understanding of the risk benefits going home and would like to go home. I recommended she follow-up with her PCP in 3 to 5 days to monitor her renal function as her baseline creatinine is around 1.7. 2. 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 Her home medications were continued where appropriate. Physical Exam Narrative General: Alert, Oriented x3, Cooperative, No apparent distress HEENT: Atraumatic, PERRLA, EOMI, Normocephalic Oral: Moist Mucosa Neck: Supple, No JVD Lungs: Diminished, Normal air movement, No rhonchi, No wheeze, No rales Cardiovascular: Regular rate, Regular Rhythm, Normal S1, Normal S2, No murmurs, right chest port Abdomen: Soft, Non Tender, Non-Distended, No Hepato-splenomegaly Extremities: No edema, Capillary Refill Less than 3 Seconds Skin: No rashes, No breakdown Musculoskeletal: No Tenderness to Palpation of Joints or Extremities Neurological: No focal neurological deficits, Motor Exam 5/5 strength throughout, Sensory exam intact to light touch and pain Psych/Mental Status: Normal Affect, Appropriate Weight / BMI Weight Weight: 194 lb 0.108 oz Body Mass Index (BMI) 30.4 ABG / Lab / Microbiology Data 03/11/24 07:40 03/13/24 07:37 Laboratory: Laboratory Results - last 24 hr 03/12/24 13:41: POC Glucose 203 H 03/12/24 17:21: POC Glucose 229 H 03/12/24 22:46: POC Glucose 242 H 03/13/24 06:34: POC Glucose 138 H 03/13/24 07:37: Sodium 140, Potassium 4.0, Chloride 117 H, Carbon Dioxide 18.0 L, Anion Gap 5, BUN 41 H, Creatinine 2.13 H, Estim Creat Clear Calc 30.00, Est GFR (MDRD) Af Amer 30 L, Est GFR (MDRD) Non-Af 25 L, BUN/Creatinine Ratio 19.2, Glucose 151 H, Calcium 8.2 L Microbiology: Microbiology 03/10/24 15:23 Stool Enteric Bacteriology - Final Norovirus 03/10/24 14:46 Mucosa - Nose SARS-CoV-2, Influenza & RSV (PCR) - Final D/C Instructions Discharge Diet: Carb Control Diet Call your doctor if you observe: Fever of 101 or Higher, Shortness of breath, Dizziness, Fainting spells, Swelling in the ankles, Chest pain and Increased palpitations (irregular heartbeat) DC O2, CPAP, BIPAP Needs Home O2 Discharge instructions: No Meaningful Use Info Meaningful Use Meaningful Use Diagnoses (Choose all that apply): None applicable Ischemic Stroke Statin Dosing Therapy Reference: STATIN DOSE THERAPY REFERENCE: * Patients > 75 years receive moderate or high dose statin therapy. * Patients 75 years or YOUNGER should receive HIGH intensity statin dose unless contraindicated. You will be required to document reason for non-treatment if statin daily dose does not meet guidelines. HIGH DOSE STATIN THERAPY DAILY Atorvastatin > than or = to 40 mg Rosuvastatin > than or = to 20 mg Amlodipine + Atorvastatin > than or = to 2.5/40 mg Ezetimibe + Simvastatin 10/80 mg Simvastatin 80mg Discharge Plan Admission Admit Date/Time: 03/10/24 16:45 Attending Provider: Juan Carlos Gerber Primary Care Provider: Mala Mcgrath Consulting Providers: Shiva Chandler Instructions Additional Instructions / Restrictions: Follow-up with your primary care physician to monitor your kidney function Discharge Orders/Prescriptions Prescriptions: Continued cyclobenzaprine 10 mg tablet 10 mg PO TID PRN (Reason: muscle spasm) Qty: 30 0RF Nurtec ODT 75 mg tablet,disintegrating 75 mg PO DAILY PRN (Reason: migraine headache) Qty: 16 5RF aspirin 81 mg tablet,delayed release (DR/EC) 81 mg PO DAILY Qty: 30 11RF nitroglycerin 0.4 mg tablet, sublingual 0.4 mg sublingual Q5-15M PRN (Reason: chest pain) Qty: 25 3RF Rx Instructions: do not exceed 3 doses per episode mirtazapine 7.5 mg tablet 7.5 mg PO QHS Qty: 30 1RF hyoscyamine sulfate 0.125 mg tablet 0.125 mg PO BID-QID PRN (Reason: dyspepsia) duloxetine 60 mg capsule,delayed release(DR/EC) 60 mg PO BID galantamine 16 mg capsule,ext rel. 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 Compound Finisher Misc See Rx Instructions .ROUTE .MEDSUPPLY Rx Instructions: As directed buprenorphine HCl 150 mcg film 150 mcg buccal Q12H metoprolol tartrate 25 mg tablet 75 mg PO BID Rx Instructions: take 25 mg with a 50 mg tablet twice a day to = 75 mg twice a day; metoprolol tartrate 50 mg tablet 50 mg PO BID Patient Comments: take 25 mg orally with a 50 mg tablet twice a day to = 75 mg twice a day; melatonin 5 mg tablet 5 mg PO QHS PRN (Reason: sleep) Humalog KwikPen Insulin 200 unit/mL (3 mL) insulin pen 1 sliding scale dose subcut ACHS Patient Comments: pt has an insulin pump. she states it give continuous supply, and at meals she enters carbs, and it performs calculations and supplies insulin. triamcinolone acetonide 0.1 % ointment 1 applic topical DAILY PRN (Reason: psoriasis) lamotrigine 200 mg tablet 200 mg PO DAILY albuterol sulfate 90 mcg/actuation HFA aerosol inhaler 2 puff INHALATION BID PRN (Reason: SOB) dicyclomine 10 mg Capsule 10 mg PO BID PRN (Reason: stomach) pantoprazole [Protonix] 40 mg tablet,delayed release (DR/EC) 40 mg PO BID Qty: 60 11RF atorvastatin 80 mg tablet 80 mg PO QHS Qty: 90 3RF Patient Comments: cholesterol (DME) Dexcom G6 Sensor Device See Rx Instructions .Route Qty: 9 1RF Rx Instructions: As directed isosorbide dinitrate 30 mg tablet 30 mg PO BID Qty: 60 11RF fluticasone propionate [Flonase Allergy Relief] 50 mcg/actuation spray,suspension 2 spray intranasal DAILY Qty: 16 3RF Rx Instructions: administer into each nostril clopidogrel 75 mg tablet 75 mg PO DAILY Qty: 28 11RF pregabalin 75 mg capsule 75 mg PO DAILY Qty: 30 1RF Repatha SureClick 140 mg/mL pen injector 140 mg subcut Q2W Qty: 6 3RF (DME) Omnipod 5 G6-G7 Pods (Gen 5) Cartridge See Rx Instructions .Route Qty: 45 1RF Rx Instructions: change every 48 hours Held diphenoxylate-atropine [Lomotil] 2.5-0.025 mg tablet 1 tab PO TID PRN (Reason: diarrhea) Hold Instructions: Resume on 03/16/24. Referrals / Follow Up: Mala Mcgrath MD [Primary Care Provider] - Within 1 Week Disposition Disposition (needs filled in before D/C Order can be placed): Home, Self Care Charges/Coding Visit Charges Inpatient E&M: 26554 Disch Hosp >30min
[2024-03-13 12:29] VITALS: BP 144/74; PULSE 74; RESP 18; TEMP 36.8; O2SAT 98
== END 2024-03-13 12:30 | disposition home or self-care (01) | DRG 683 ==
LOC: ED 16:53 → MS3 16:59
PROVIDERS: Emergency Provider Emergency Medicine; PCP Internal Medicine; Visit Provider Family Medicine
DX: N17.9 Acute kidney failure, unspecified (principal); A08.11 Acute gastroenteropathy due to Norwalk agent; K90.829 Short bowel syndrome, unspecified; F03.94 Unspecified dementia, unspecified severity, with anxiety; F03.93 Unspecified dementia, unspecified severity, with mood disturbance; E11.22 Type 2 diabetes mellitus with diabetic chronic kidney disease; D47.2 Monoclonal gammopathy; E86.0 Dehydration; N18.4 Chronic kidney disease, stage 4 (severe); J44.9 Chronic obstructive pulmonary disease, unspecified; M06.9 Rheumatoid arthritis, unspecified; I12.9 Hypertensive chronic kidney disease with stage 1 through stage 4 chronic kidney disease, or unspecified chronic kidney disease; E66.9 Obesity, unspecified; Z93.3 Colostomy status; I25.10 Atherosclerotic heart disease of native coronary artery without angina pectoris; K21.9 Gastro-esophageal reflux disease without esophagitis; E11.42 Type 2 diabetes mellitus with diabetic polyneuropathy; Z79.4 Long term (current) use of insulin; E11.43 Type 2 diabetes mellitus with diabetic autonomic (poly)neuropathy; K31.84 Gastroparesis; G47.33 Obstructive sleep apnea (adult) (pediatric); L40.9 Psoriasis, unspecified; E78.49 Other hyperlipidemia; M47.816 Spondylosis without myelopathy or radiculopathy, lumbar region; M51.379 Other intervertebral disc degeneration, lumbosacral region without mention of lumbar back pain or lower extremity pain; Z96.41 Presence of insulin pump (external) (internal); Z87.891 Personal history of nicotine dependence; Z79.899 Other long term (current) drug therapy; Z79.02 Long term (current) use of antithrombotics/antiplatelets; Z79.82 Long term (current) use of aspirin; Z88.0 Allergy status to penicillin; Z88.2 Allergy status to sulfonamides; Z88.1 Allergy status to other antibiotic agents; Z90.49 Acquired absence of other specified parts of digestive tract; Z95.1 Presence of aortocoronary bypass graft; Z96.642 Presence of left artificial hip joint; Z68.30 Body mass index [BMI] 30.0-30.9, adult
CPT/HCPCS: 36415; 36591; 51702; 74176; 80048; 80076; 81001; 82962; 83690; 83735; 85025; 87506; 87631; 97162; 97165; 99285; A4216; J2405

== ENCOUNTER 2024-03-24 09:34 | Inpatient (IN) | payer MEDICARE, MEDICAID, SELFPAY ==
[2023-10-27 12:02] VITALS: BMI 30.9
[2024-03-24] VITALS (7 sets, daily range): BP systolic 111–143; BP diastolic 52–75; PULSE 68–81; RESP 14–18; TEMP 36.6–37.2; O2SAT 92–94; BMI 31.6; BMI 31.3
--- NOTE | 2024-03-24 10:24 | ED.VIS.GI ---
HPI HPI - GI History of Present Illness Chief Complaint: Diarrhea Informant: patient Nausea/Vomiting/Emesis GI Symptom: Positive for Nausea and Vomiting Onset: Today Severity: Mild Diarrhea/Melena/Hematochezia GI Symptom: Positive for Diarrhea Stool Quality: Positive for Watery Severity: Moderate Associated Symptoms Associated Symptoms: Negative for Dysuria, Frequency, Hematuria or Urgency Narrative Narrative: 63-year-old female extensive past medical history including ulcerative colitis treated with total colectomy and now has ileostomy, CAD, CKD, diabetes. Recent hospitalization due to dehydration and acute kidney injury. States around 1 AM this morning started having nausea vomiting and diarrhea with some abdominal cramping. States the nausea and vomiting is resolved. But she is still feeling her colostomy bag frequently. Denies any melena. She is urinating but says decreased amounts. Denies any fever. Prior similar symptoms: Yes Recent Illness/Hospitalization: Yes PFSH [facility] Medical History CKD (chronic kidney disease), stage IV CAD (coronary artery disease) Hypertension MGUS (monoclonal gammopathy of unknown significance) Dehydration Falls Hypoxic respiratory failure Hypercapnic respiratory failure Fatigue Low back pain Abnormality of gait and mobility Polyneuropathy Insulin pump titration Presence of insulin pump Health care maintenance Essential tremor Dementia History of stress test Fungal dermatitis Herpes genitalia Encounter for insertion of venous access port Post-menopausal Rash Back pain Arthritis Ambulates with cane History of renal disease High cholesterol Dietary restriction History of pain when walking History of echocardiogram Chronic kidney disease (CKD) stage G4/A2, severely decreased glomerular filtration rate (GFR) between 15-29 mL/min/1.73 square meter and albuminuria creatinine ratio between 30-299 mg/g Chronic kidney disease (CKD) stage G4/A1, severely decreased glomerular filtration rate (GFR) between 15-29 mL/min/1.73 square meter and albuminuria creatinine ratio less than 30 mg/g Ingrown toenail Neuropathy Hyperglycemia due to diabetes mellitus Frequent falls Tremor Depression Chronic pain Rheumatoid arthritis Congestive heart failure (CHF) Lumbar spondylosis Greater trochanteric bursitis CKD (chronic kidney disease) stage 3, GFR 30-59 ml/min Malaise and fatigue Vitamin B12 deficiency History of CAD (coronary artery disease) Memory loss Anxiety and depression Degenerative disc disease at L5-S1 level CAD (coronary artery disease) Cellulitis, abdominal wall Left shoulder pain Gastroparesis Vitamin D deficiency Acute kidney injury High output ileostomy Elevated anti-tissue transglutaminase (tTG) IgA level Ileostomy present Short bowel syndrome Loss of hearing Wears glasses History of COVID-19 Anxiety Insulin dependent diabetes mellitus Walker as ambulation aid Fatty liver Migraine headache Hx of diabetic gastroparesis Gastric reflux Former smoker BiPAP (biphasic positive airway pressure) dependence Cardiology follow-up encounter Myoclonic jerking Chronic narcotic use Avascular necrosis of bone of left hip Chronic back pain Non-alcoholic fatty liver disease Liver mass Ulcerative colitis Nonalcoholic steatohepatitis Chronic respiratory failure Smoking greater than 20 pack years Obesity Chronic respiratory failure with hypoxia, on home O2 therapy Diabetic gastroparesis Secondary pulmonary arterial hypertension Chronic diastolic (congestive) heart failure Type 2 diabetes mellitus with diabetic polyneuropathy BMI 31.0-31.9,adult Depression with anxiety Arthritis Menieres disease Hyperlipidemia Psoriasis Obstructive sleep apnea COPD (chronic obstructive pulmonary disease) FCHL (familial combined hyperlipidemia) DM2 (diabetes mellitus, type 2) Home Medications ?Medication ?Instructions ?Recorded ?Last Taken ?Type blood-glucose meter,continuous 11/15/21 Unknown History (Dexcom G6 Mental Tester) cyclobenzaprine 10 mg tablet 10 mg PO TID PRN muscle spasm #30 02/24/23 04/30/23 Rx tabs pantoprazole 40 mg tablet,delayed 40 mg PO BID GERD #60 tabs 04/29/23 02/17/24 Rx release (Protonix) albuterol sulfate 90 mcg/actuation 2 puff inhalation BID PRN SOB 05/01/23 02/17/24 History aerosol inhaler lamotrigine 200 mg tablet 200 mg PO DAILY mood 05/01/23 02/17/24 History diphenoxylate-atropine 2.5 1 tab PO TID PRN diarrhea 06/21/23 09/04/23 History mg-0.025 mg tablet (Lomotil) atorvastatin 80 mg tablet 80 mg PO QHS CHOLESTEROL LOWERING 07/22/23 02/16/24 Rx #90 tabs buprenorphine HCl 150 mcg buccal 150 mcg buccal Q12H pain 08/04/23 02/17/24 History film metoprolol tartrate 25 mg tablet 75 mg PO BID bp 09/18/23 02/17/24 History rimegepant 75 mg disintegrating 75 mg PO DAILY PRN migraine 10/29/23 Unknown Rx tablet (Nurtec ODT) headache #16 tabs blood-glucose sensor (Dexcom G6 #9 ea 12/07/23 Unknown Rx Sensor device) isosorbide dinitrate 30 mg tablet 30 mg PO BID heart #60 tabs 12/08/23 02/17/24 Rx duloxetine 60 mg capsule,delayed 60 mg PO BID mental health 12/23/23 02/17/24 History release hyoscyamine sulfate 0.125 mg tablet 0.125 mg PO BID-QID PRN dyspepsia 12/23/23 Unknown History mirtazapine 7.5 mg tablet 7.5 mg PO QHS mental health #30 12/23/23 02/16/24 Rx tabs fluticasone propionate 50 2 spray intranasal DAILY allergies 01/04/24 02/17/24 Rx mcg/actuation nasal #16 grams spray,suspension (Flonase Allergy Relief) bupropion HCl 75 mg tablet 75 mg PO BID mental health #60 tabs 02/01/24 02/17/24 Rx galantamine 16 mg 24 hr 16 mg PO QDAY memory 02/01/24 02/17/24 History capsule,extended release clopidogrel 75 mg tablet 75 mg PO DAILY anti platelet #28 02/02/24 02/17/24 Rx TABLETS insulin lispro 200 unit/mL (3 mL) 1 sliding scale dose subcut ACHS 02/17/24 02/17/24 History subcutaneous pen (Humalog KwikPen diabetes U-200 Insulin) melatonin 5 mg tablet 5 mg PO QHS PRN sleep 02/17/24 Unknown History metoprolol tartrate 50 mg tablet 50 mg PO BID blood pressure 02/17/24 02/17/24 History triamcinolone acetonide 0.1 % 1 applic topical DAILY PRN 02/17/24 Unknown History topical ointment psoriasis pregabalin 75 mg capsule 75 mg PO DAILY pain #30 caps 02/22/24 Unknown Rx aspirin 81 mg tablet,delayed 81 mg PO DAILY heart health #30 02/24/24 Unknown Rx release tabs nitroglycerin 0.4 mg sublingual 0.4 mg sublingual Q5-15M PRN chest 02/24/24 Unknown Rx tablet pain #25 tabs evolocumab 140 mg/mL subcutaneous 140 mg subcut Q2W #6 mL 02/29/24 Unknown Rx pen injector (Geraldine Collins) primidone 50 mg tablet See Rx Instructions .Route 03/07/24 Unknown Rx .COMPLEX #60 tabs insulin pump cart,auto,BT,G6/7 #45 ea 03/10/24 Unknown Rx (Omnipod 5 G6-G7 Pods (Gen 5) subcutaneous cartridge) dicyclomine 10 mg capsule 10 mg PO BID PRN stomach 03/11/24 Unknown History Allergy/AdvReac Type Severity Reaction Status Date / Time cinnamon (Cinnamon) Allergy Severe Anaphylaxis Verified 03/24/24 09:35 Influenza Virus Vaccines Allergy Severe Shortness Verified 03/24/24 09:35 of breath liraglutide (From Victoza) Allergy Severe Anaphylaxis Verified 03/24/24 09:35 ciprofloxacin Allergy Intermediate Swelling Verified 03/24/24 09:35 metformin (From Glucophage) Allergy Mild Nausea Verified 03/24/24 09:35 metronidazole (From Flagyl) Allergy Hives Verified 03/24/24 09:35 Metronidazole HCl (From Allergy Hives Verified 03/24/24 09:35 Flagyl) Penicillins Allergy Hives Verified 03/24/24 09:35 Sulfa (Sulfonamide Allergy Hives Verified 03/24/24 09:35 Antibiotics) aripiprazole (From Abilify) AdvReac hallucinati Verified 03/24/24 09:35 ons metformin HCl (From AdvReac Nausea Verified 03/24/24 09:35 Glucophage) ranolazine AdvReac Nausea/Vom/ Verified 03/24/24 09:35 Diarrhea [id number] Reductase AdvReac Nausea/joints Verified 03/24/24 09:35 Inhibitor (Hszdmrz-Ecd-Krd ache Reductase Inhibitor) Family History Mother CVA (cerebral vascular accident) Diabetes Brother Heart disease of CAD at 65 Myocardial infarction Pancreatitis Father Cancer lymphomia Lymphoma Grandmother Myocardial infarction of [place] in her 70s Sister COPD (chronic obstructive pulmonary disease) Surgical History History of vascular access device History of colonoscopy History of esophagogastroduodenoscopy (EGD) History of appendectomy History of coronary artery stent placement H/O total hip arthroplasty Status post total hip replacement, left History of cardiac catheterization History of History of cholecystectomy H/O coronary artery bypass surgery (05/18/12) History of coronary artery stent placement (01/12/18) H/O sinus surgery history closed fissure Ileostomy status H/O colectomy left thumb surgery H/O total hysterectomy ileostomy Social History household members: spouse and none Smoking Status: Former smoker quit date: 03/08/12 how long ago did patient quit smoking: quit in 2012; 0.5-1ppd x 30yrs alcohol intake: never substance use type: does not use diet: diabetic caffeine: No eating out: 1-3 times/week what type of physical activity do you participate in: none seatbelt use: always do you feel safe at home: Yes ROS ROS ED ROS Narrative Nausea, vomiting diarrhea. Constitutional Constitutional ED: Denies chills or fever(s) ENT ENT ED: Denies ear pain Cardiovascular Cardiovascular: Denies chest pain Respiratory/Chest Respiratory/Chest: Denies cough or dyspnea Gastrointestinal Gastrointestinal: Reports abdominal pain, diarrhea, nausea, vomiting and other Details: Abdominal pain that she describes as cramping with her diarrhea. Genitourinary Genitourinary ED: Denies dysuria or hematuria Musculoskeletal Musculoskeletal: Denies arthralgias Integumentary Denies abscess Neurologic Neurologic: Denies headache(s) Psychiatric Psychiatric: Denies anxiety Endocrine Endocrinology: Denies polydipsia Hematologic/Lymphatic Hematologic/Lymphatic: Denies easy bleeding Allergic/Immunologic Allergic/Immunologic ED: Denies mouth swelling or tongue swelling EXAM Physical Exam Narrative Exam Narrative: 66-year-old female sitting upright in bed. Vital signs are stable afebrile. H EENT exam pupils round reactive light. Extra motions are intact. Dry mucous membranes. Neck nontender no JVD. Lungs clear to auscultation bilateral. Heart regular rhythm rate about 75 no murmur. Chest wall and ribs nontender. Well-healed prior sternotomy incision. Abdomen soft, nondistended, normal bowel sounds without peritoneal signs. No tenderness. Colostomy bag has gas and stool. No gross blood. Moving all 4 extremities. Nontender no edema. Back nontender. Neurologically she awake and alert no focal motor deficits. Const Vital Signs: 03/24/24 09:36 03/24/24 11:35 Temperature 99 F Temperature Source Temporal Pulse Rate 78 68 Respiratory Rate 16 14 Blood Pressure 125/62 H Blood Pressure Mean 83 Pulse Ox 92 Oxygen Delivery Method Room Air Room Air Positive well nourished and well developed; Negative for cachectic, contractures or unkempt General Appearance ED: well developed and NAD; Negative for unkempt, cachectic, contractures or pallor Nutritional Appearance: Negative for cachectic HEENT Reports dry mucous membranes; Denies moist mucous membranes normocephalic and atraumatic Mouth ED: Yes dry mucous membranes Mouth: dry mucous membranes Eyes PERRL and EOMs intact bilaterally General Eye ED: Negative for pale conjunctiva or scleral icterus Neck no lymphadenopathy, supple and no JVD Resp normal respiratory effort and clear to auscultation bilaterally Auscultation: Negative for rales, rhonchi or wheezes Cardio regular rate, regular rhythm, S1 normal heart sound, S2 normal heart sound and no murmurs Rate: Negative for bradycardia or tachycardic Rhythm: Negative for abnormal rhythm GI non-tender, non-distended and no masses Inspection: Negative for abdominal distention Auscultation: normoactive bowel sounds Palpation: soft; Negative for tender, guarding, rigid, mass, pulsatile mass or rebound tenderness present Back/Spine no CVA tenderness General Back: Negative for CVA tenderness Cervical Spine: Negative for cervical spine tenderness Thoracic Spine / Upper Back: Negative for thoracic spinal tenderness Lumbar Spine / Lower Back: Negative for lumbar spinal tenderness Coccyx: Negative for other Extremity full ROM General Extremety ED: Negative for edema or tenderness General Extremity: Negative for edema Neuro CN's II-XII intact bilaterally and moves all extremities Sensorium / Orientation: alert, oriented to person, oriented to place and oriented to time; Negative for orientation impaired, confused, lethargic or stuporous Motor Exam: strength 5/5 throughout Psych mental status grossly normal and thought process normal Appearance: Negative for unkempt Mood & Affect: Negative for depressed or anxious Skin no wounds General Skin Exam: Negative for jaundice or pallor Lesions: no lesions Rashes: no rashes MDM MDM MDM Narrative Medical decision making narrative: 63-year-old female with a complicated past medical history with nausea vomiting diarrhea suspect she has a viral gastroenteritis. Abdomen is benign does not need imaging. I am obtaining screening labs because clinically she looks dehydrated. Reevaluate her kidney function she was recently admitted for acute kidney injury. She will be treated with IV fluids. Currently she is not nauseated and does not need anything for nausea nor for abdominal pain. She just having intermittent cramping. Repeat exam patient is doing well. She has not received that much her IV fluids it is running slow through her med port. Abdomen remains benign. Nontender. She is having cramping. I think she has a viral gastroenteritis. She is I output ileostomy. I think that is what is causing her to have worsening renal function. Normally she runs around 1.75 if she has been as bad as a creatinine of 4 today her BUNs 44 and her creatinine is 2.38. I wrote for a second liter of saline. Morphine for cramping and Zofran. On the hospitalist on page. She had a recent CT of her abdomen I do not think she needs reimaged. History & Record Review Discussion w/independent historian: Patient and Family Additional record(s) reviewed:: Prior inpatient record, Prior outpatient record, Prior ED visit and Prior labs Lab Data Attestation: I reviewed the patient's lab results. Lab results narrative: CBC shows a white count 17.5. H&H 12.9 and 41.9. Platelets 232. Electrolytes show sodium 135. Potassium 5.6. BUN is 14 creatinine is 2.38. Glucose is 229. Labs: Laboratory Results - last 24 hr 03/24/24 10:00 WBC 17.5 H RBC 4.75 Hgb 12.9 Hct 41.9 MCV 88.2 MCH 27.2 MCHC 30.8 L RDW Std Deviation 53.4 H RDW Coeff of Jan 16.7 H Plt Count 232 MPV 12.4 H Immature Gran % (Auto) 0.700 Neut % (Auto) 79.1 H Lymph % (Auto) 12.1 L [place] % (Auto) 5.0 Eos % (Auto) 2.9 Baso % (Auto) 0.2 Absolute Neuts (auto) 13.9 H Absolute Lymphs (auto) 2.12 Nucleated RBC % 0 Sodium 135 L Potassium 5.6 H Chloride 106 Carbon Dioxide 21.0 Anion Gap 9 BUN 44 H Creatinine 2.38 H Est GFR (MDRD) Af Amer 26 L Est GFR (MDRD) Non-Af 22 L BUN/Creatinine Ratio 18.5 Glucose 229 H Calcium 10.6 H Discharge Plan Triage Chief Complaint: Diarrhea ED Provider: Sid Carter Dx/Rx/DC Orders Clinical Impression: Viral gastroenteritis, Acute kidney injury, Diarrhea, Acute dehydration Prescriptions: No Action cyclobenzaprine 10 mg tablet 10 mg PO TID PRN (Reason: muscle spasm) Qty: 30 0RF Nurtec ODT 75 mg tablet,disintegrating 75 mg PO DAILY PRN (Reason: migraine headache) Qty: 16 5RF aspirin 81 mg tablet,delayed release (DR/EC) 81 mg PO DAILY Qty: 30 11RF nitroglycerin 0.4 mg tablet, sublingual 0.4 mg sublingual Q5-15M PRN (Reason: chest pain) Qty: 25 3RF Rx Instructions: do not exceed 3 doses per episode mirtazapine 7.5 mg tablet 7.5 mg PO QHS Qty: 30 1RF hyoscyamine sulfate 0.125 mg tablet 0.125 mg PO BID-QID PRN (Reason: dyspepsia) duloxetine 60 mg capsule,delayed release(DR/EC) 60 mg PO BID galantamine 16 mg capsule,ext rel. 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 Mental Tester Misc See Rx Instructions .ROUTE .MEDSUPPLY Rx Instructions: As directed diphenoxylate-atropine [Lomotil] 2.5-0.025 mg tablet 1 tab PO TID PRN (Reason: diarrhea) buprenorphine HCl 150 mcg film 150 mcg buccal Q12H metoprolol tartrate 25 mg tablet 75 mg PO BID Rx Instructions: take 25 mg with a 50 mg tablet twice a day to = 75 mg twice a day; metoprolol tartrate 50 mg tablet 50 mg PO BID Patient Comments: take 25 mg orally with a 50 mg tablet twice a day to = 75 mg twice a day; melatonin 5 mg tablet 5 mg PO QHS PRN (Reason: sleep) Humalog KwikPen Insulin 200 unit/mL (3 mL) insulin pen 1 sliding scale dose subcut ACHS Patient Comments: pt has an insulin pump. she states it give continuous supply, and at meals she enters carbs, and it performs calculations and supplies insulin. triamcinolone acetonide 0.1 % ointment 1 applic topical DAILY PRN (Reason: psoriasis) lamotrigine 200 mg tablet 200 mg PO DAILY albuterol sulfate 90 mcg/actuation HFA aerosol inhaler 2 puff INHALATION BID PRN (Reason: SOB) dicyclomine 10 mg Capsule 10 mg PO BID PRN (Reason: stomach) pantoprazole [Protonix] 40 mg tablet,delayed release (DR/EC) 40 mg PO BID Qty: 60 11RF atorvastatin 80 mg tablet 80 mg PO QHS Qty: 90 3RF Patient Comments: cholesterol (DME) Dexcom G6 Sensor Device See Rx Instructions .Route Qty: 9 1RF Rx Instructions: As directed isosorbide dinitrate 30 mg tablet 30 mg PO BID Qty: 60 11RF fluticasone propionate [Flonase Allergy Relief] 50 mcg/actuation spray,suspension 2 spray intranasal DAILY Qty: 16 3RF Rx Instructions: administer into each nostril clopidogrel 75 mg tablet 75 mg PO DAILY Qty: 28 11RF pregabalin 75 mg capsule 75 mg PO DAILY Qty: 30 1RF Repatha SureClick 140 mg/mL pen injector 140 mg subcut Q2W Qty: 6 3RF (DME) Omnipod 5 G6-G7 Pods (Gen 5) Cartridge See Rx Instructions .Route Qty: 45 1RF Rx Instructions: change every 48 hours Primary Care Provider: Mala Mcgrath Referrals: Mala Mcgrath MD [Primary Care Provider] - Print Language: Libyan
[2024-03-24 10:32] LABS: Absolute Lymphocyte Count 2.12 X10^3/uL (0.83-4.51); Absolute Neutrophil Count 13.9 X10^3/uL (2.0-7.7); Basophil# 0.03 X10^3/uL; Basophil% 0.2 % (0-1); Eosinophils% 2.9 % (0-5); Hematocrit 41.9 % (37-47); Hemoglobin 12.9 g/dL (12.0-15.0); Lymphocyte # 2.12 X10^3/ul (0.83-4.51); Lymphocyte % 12.1 % (19-41); Mean Corp Hgb Conc 30.8 g/dL (32-36); Mean Corpuscular Hgb 27.2 pg (27.0-32.0); Mean Corpuscular Volume 88.2 fL (81-99); Mean Platelet Vol. 12.4 fl (6.2-12.0); Monocyte# 0.87 X10^3/uL; NRBC Flagged by Analyzer 0 % (0-5); Neutrophil # 13.87 X10^3/uL (2.7-7.7); Neutrophil % 79.1 % (47-70); Platelet Count 232 K/mm3 (150-450); RBC Distribution Width CV 16.7 % (11.6-14.6); RBC Distribution Width SD 53.4 fl (35.1-43.9); Red Blood Count 4.75 M/mm3 (4.2-5.4); White Blood Count 17.5 K/mm3 (4.4-11.0)
[2024-03-24] MEDS: 0.9% Normal Saline (1000mL) 1,000 ML 999 ML IV ×2 (10:36→12:43)
[2024-03-24 10:51] LABS: Anion Gap 9 (5-15); BUN 44 mg/dL (7-18); BUN/Creat Ratio 18.5 RATIO (10-20); Calcium,Total 10.6 mg/dL (8.5-10.1); Chloride 106 mmol/L (98-107); Creatinine, Serum 2.38 mg/dL (0.55-1.02); EST Glomerular Filtration Rate 22 mL/min (>60); Est Glom Filt Rate - Afr Amer 26 mL/min (>60); Glucose 229 mg/dL (74-106); Potassium 5.6 mmol/L (3.5-5.1); Sodium Level 135 mmol/L (136-145)
--- NOTE | 2024-03-24 12:07 | PCM.HP.STD ---
[facility] - General General Date of Admission: 03/24/24 Date of Service: 03/24/24 Chief Complaint: Diarrhea that started last night. HPI Narrative ASHLEY MÉNDEZ, is a 63 F with history of short-bowel syndrome and CKD with recurrent hospitalization last 1 in first week of March 2024 came back with similar complaint of diarrhea. She stated that she is having loose watery fecal matter and has to empty ileostomy every hour. She stated she did not voided urine since morning and was dark yellow last time. Complaining of bilateral upper abdominal cramps intermittently. Denies fever or chills. Denies any sick contact or food poisoning. No blood in ileostomy. Vitals in the ED reviewed and in normal range. She is getting 2 L IV normal saline bolus. Labs reviewed and discussed in assessment and plan. [facility] Medical History CKD (chronic kidney disease), stage IV CAD (coronary artery disease) Hypertension MGUS (monoclonal gammopathy of unknown significance) Dehydration Falls Hypoxic respiratory failure Hypercapnic respiratory failure Fatigue Low back pain Abnormality of gait and mobility Polyneuropathy Insulin pump titration Presence of insulin pump Health care maintenance Essential tremor Dementia History of stress test Fungal dermatitis Herpes genitalia Encounter for insertion of venous access port Post-menopausal Rash Back pain Arthritis Ambulates with cane History of renal disease High cholesterol Dietary restriction History of pain when walking History of echocardiogram Chronic kidney disease (CKD) stage G4/A2, severely decreased glomerular filtration rate (GFR) between 15-29 mL/min/1.73 square meter and albuminuria creatinine ratio between 30-299 mg/g Chronic kidney disease (CKD) stage G4/A1, severely decreased glomerular filtration rate (GFR) between 15-29 mL/min/1.73 square meter and albuminuria creatinine ratio less than 30 mg/g Ingrown toenail Neuropathy Hyperglycemia due to diabetes mellitus Frequent falls Tremor Depression Chronic pain Rheumatoid arthritis Congestive heart failure (CHF) Lumbar spondylosis Greater trochanteric bursitis CKD (chronic kidney disease) stage 3, GFR 30-59 ml/min Malaise and fatigue Vitamin B12 deficiency History of CAD (coronary artery disease) Memory loss Anxiety and depression Degenerative disc disease at L5-S1 level CAD (coronary artery disease) Cellulitis, abdominal wall Left shoulder pain Gastroparesis Vitamin D deficiency Acute kidney injury High output ileostomy Elevated anti-tissue transglutaminase (tTG) IgA level Ileostomy present Short bowel syndrome Loss of hearing Wears glasses History of COVID-19 Anxiety Insulin dependent diabetes mellitus Walker as ambulation aid Fatty liver Migraine headache Hx of diabetic gastroparesis Gastric reflux Former smoker BiPAP (biphasic positive airway pressure) dependence Cardiology follow-up encounter Myoclonic jerking Chronic narcotic use Avascular necrosis of bone of left hip Chronic back pain Non-alcoholic fatty liver disease Liver mass Ulcerative colitis Nonalcoholic steatohepatitis Chronic respiratory failure Smoking greater than 20 pack years Obesity Chronic respiratory failure with hypoxia, on home O2 therapy Diabetic gastroparesis Secondary pulmonary arterial hypertension Chronic diastolic (congestive) heart failure Type 2 diabetes mellitus with diabetic polyneuropathy BMI 31.0-31.9,adult Depression with anxiety Arthritis Menieres disease Hyperlipidemia Psoriasis Obstructive sleep apnea COPD (chronic obstructive pulmonary disease) FCHL (familial combined hyperlipidemia) DM2 (diabetes mellitus, type 2) Home Medications ?Medication ?Instructions ?Recorded ?Last Taken ?Type blood-glucose meter,continuous 11/15/21 Unknown History (Dexcom G6 Greens Or Grounds Superintendent) cyclobenzaprine 10 mg tablet 10 mg PO TID PRN muscle spasm #30 02/24/23 04/30/23 Rx tabs pantoprazole 40 mg tablet,delayed 40 mg PO BID GERD #60 tabs 04/29/23 02/17/24 Rx release (Protonix) albuterol sulfate 90 mcg/actuation 2 puff inhalation BID PRN SOB 05/01/23 02/17/24 History aerosol inhaler lamotrigine 200 mg tablet 200 mg PO DAILY mood 05/01/23 02/17/24 History diphenoxylate-atropine 2.5 1 tab PO TID PRN diarrhea 06/21/23 09/04/23 History mg-0.025 mg tablet (Lomotil) atorvastatin 80 mg tablet 80 mg PO QHS CHOLESTEROL LOWERING 07/22/23 02/16/24 Rx #90 tabs buprenorphine HCl 150 mcg buccal 150 mcg buccal Q12H pain 08/04/23 02/17/24 History film metoprolol tartrate 25 mg tablet 75 mg PO BID bp 09/18/23 02/17/24 History rimegepant 75 mg disintegrating 75 mg PO DAILY PRN migraine 10/29/23 Unknown Rx tablet (Nurtec ODT) headache #16 tabs blood-glucose sensor (Dexcom G6 #9 ea 12/07/23 Unknown Rx Sensor device) isosorbide dinitrate 30 mg tablet 30 mg PO BID heart #60 tabs 12/08/23 02/17/24 Rx duloxetine 60 mg capsule,delayed 60 mg PO BID mental health 12/23/23 02/17/24 History release hyoscyamine sulfate 0.125 mg tablet 0.125 mg PO BID-QID PRN dyspepsia 12/23/23 Unknown History mirtazapine 7.5 mg tablet 7.5 mg PO QHS mental health #30 12/23/23 02/16/24 Rx tabs fluticasone propionate 50 2 spray intranasal DAILY allergies 01/04/24 02/17/24 Rx mcg/actuation nasal #16 grams spray,suspension (Flonase Allergy Relief) bupropion HCl 75 mg tablet 75 mg PO BID mental health #60 tabs 02/01/24 02/17/24 Rx galantamine 16 mg 24 hr 16 mg PO QDAY memory 02/01/24 02/17/24 History capsule,extended release clopidogrel 75 mg tablet 75 mg PO DAILY anti platelet #28 02/02/24 02/17/24 Rx TABLETS insulin lispro 200 unit/mL (3 mL) 1 sliding scale dose subcut ACHS 02/17/24 02/17/24 History subcutaneous pen (Humalog KwikPen diabetes U-200 Insulin) melatonin 5 mg tablet 5 mg PO QHS PRN sleep 02/17/24 Unknown History metoprolol tartrate 50 mg tablet 50 mg PO BID blood pressure 02/17/24 02/17/24 History triamcinolone acetonide 0.1 % 1 applic topical DAILY PRN 02/17/24 Unknown History topical ointment psoriasis pregabalin 75 mg capsule 75 mg PO DAILY pain #30 caps 02/22/24 Unknown Rx aspirin 81 mg tablet,delayed 81 mg PO DAILY heart health #30 02/24/24 Unknown Rx release tabs nitroglycerin 0.4 mg sublingual 0.4 mg sublingual Q5-15M PRN chest 02/24/24 Unknown Rx tablet pain #25 tabs evolocumab 140 mg/mL subcutaneous 140 mg subcut Q2W #6 mL 02/29/24 Unknown Rx pen injector (Geraldine Collins) primidone 50 mg tablet See Rx Instructions .Route 03/07/24 Unknown Rx .COMPLEX #60 tabs insulin pump cart,auto,BT,G6/7 #45 ea 03/10/24 Unknown Rx (Omnipod 5 G6-G7 Pods (Gen 5) subcutaneous cartridge) dicyclomine 10 mg capsule 10 mg PO BID PRN stomach 03/11/24 Unknown History cholecalciferol (vitamin D3) 1,250 03/24/24 Unknown History mcg (50,000 unit) capsule Allergy/AdvReac Type Severity Reaction Status Date / Time cinnamon (Cinnamon) Allergy Severe Anaphylaxis Verified 03/24/24 09:35 Influenza Virus Vaccines Allergy Severe Shortness Verified 03/24/24 09:35 of breath liraglutide (From Victoza) Allergy Severe Anaphylaxis Verified 03/24/24 09:35 ciprofloxacin Allergy Intermediate Swelling Verified 03/24/24 09:35 metformin (From Glucophage) Allergy Mild Nausea Verified 03/24/24 09:35 metronidazole (From Flagyl) Allergy Hives Verified 03/24/24 09:35 Metronidazole HCl (From Allergy Hives Verified 03/24/24 09:35 Flagyl) Penicillins Allergy Hives Verified 03/24/24 09:35 Sulfa (Sulfonamide Allergy Hives Verified 03/24/24 09:35 Antibiotics) aripiprazole (From Abilify) AdvReac hallucinati Verified 03/24/24 09:35 ons metformin HCl (From AdvReac Nausea Verified 03/24/24 09:35 Glucophage) ranolazine AdvReac Nausea/Vom/ Verified 03/24/24 09:35 Diarrhea [id number] Reductase AdvReac Nausea/joints Verified 03/24/24 09:35 Inhibitor (Zyytgdp-Tdy-Glu ache Reductase Inhibitor) Family History Mother CVA (cerebral vascular accident) Diabetes Brother Heart disease of CAD at 65 Myocardial infarction Pancreatitis Father Cancer lymphomia Lymphoma Grandmother Myocardial infarction of [place] in her 70s Sister COPD (chronic obstructive pulmonary disease) Surgical History History of vascular access device History of colonoscopy History of esophagogastroduodenoscopy (EGD) History of appendectomy History of coronary artery stent placement H/O total hip arthroplasty Status post total hip replacement, left History of cardiac catheterization History of History of cholecystectomy H/O coronary artery bypass surgery (05/18/12) History of coronary artery stent placement (01/12/18) H/O sinus surgery history closed fissure Ileostomy status H/O colectomy left thumb surgery H/O total hysterectomy ileostomy Social History household members: spouse and none Smoking Status: Former smoker quit date: 03/08/12 how long ago did patient quit smoking: quit in 2012; 0.5-1ppd x 30yrs alcohol intake: never substance use type: does not use diet: diabetic caffeine: No eating out: 1-3 times/week what type of physical activity do you participate in: none seatbelt use: always do you feel safe at home: Yes ROS ROS Narrative Constitutional: Reports fatigue and weakness. No fever. HEENT: Reports systems reviewed and no addt'l complaints, except as documented Respiratory/Chest: No acute shortness of breath or respiratory distress or wheezing. CVS: No chest pressure or anginal-like symptoms Gastrointestinal: Denies coffee ground emesis, hematemesis or vomiting Genitourinary: Denies burning urination or new urinary tract symptoms Musculoskeletal: Denies acute joint pain or limited range of motion. No acute injury Neurologic: Denies seizure-like symptoms. Psychiatric: Getting visual hallucinations for last few days. Got worse after diarrhea. skin: No ulcer. No rash Endocrinology: Reports systems reviewed and no addt'l complaints, except as documented Hematologic/Lymphatic: Reports systems reviewed and no addt'l complaints, except as documented Rest 14 ROS are negative except as mentioned in HPI Vital Signs Vital Signs Vital Signs: 03/24/24 09:36 03/24/24 11:35 Temperature 99 F Temperature Source Temporal Pulse Rate 78 68 Respiratory Rate 16 14 Blood Pressure 125/62 H Blood Pressure Mean 83 Pulse Ox 92 Oxygen Delivery Method Room Air Room Air Physical Exam Narrative General: Alert, Oriented x3, Cooperative HEENT: Atraumatic, PERRLA, EOMI, Normocephalic Oral: Oral mucosa very dry no Gingival or Mucosal Lesions/ Ulcerations Neck: Supple, No JVD, Negative Carotid Bruits Chest wall/Lungs: Air entry diminished in bilateral lung bases. No crepitation/rhonchi Cardiovascular: Regular rate, Regular Rhythm, Normal S1, Normal S2, No M/G/R Abdomen: No tenderness. Bowel sounds hyper. LLQ ileostomy, greenish, bilious fluid. Surgical scar present. : No dysuria. No renal angle tenderness. No suprapubic tenderness. Extremities: No edema, Capillary Refill Less than 3 Seconds Skin: No rashes, No breakdown Musculoskeletal: No Tenderness to Palpation of Joints or Extremities Neurological: Cranial nerves II-XII grossly intact, DTR 2+/4. No acute focal neurological deficit. Psych/Mental Status: Flat affect. Intermittent hallucinations at home Results Lab / Micro Data 03/24/24 10:00 03/24/24 10:00 Labs: Laboratory Results - last 24 hr 03/24/24 10:00: WBC 17.5 H, RBC 4.75, Hgb 12.9, Hct 41.9, MCV 88.2, MCH 27.2, MCHC 30.8 L, RDW Std Deviation 53.4 H, RDW Coeff of Jan 16.7 H, Plt Count 232, MPV 12.4 H, Immature Gran % (Auto) 0.700, Neut % (Auto) 79.1 H, Lymph % (Auto) 12.1 L, [place] % (Auto) 5.0, Eos % (Auto) 2.9, Baso % (Auto) 0.2, Absolute Neuts (auto) 13.9 H, Absolute Lymphs (auto) 2.12, Nucleated RBC % 0, Sodium 135 L, Potassium 5.6 H, Chloride 106, Carbon Dioxide 21.0, Anion Gap 9, BUN 44 H, Creatinine 2.38 H, Est GFR (MDRD) Af Amer 26 L, Est GFR (MDRD) Non-Af 22 L, BUN/Creatinine Ratio 18.5, Glucose 229 H, Calcium 10.6 H Assessment & Plan Assessment/Plan (1) Viral gastroenteritis: (2) Acute kidney injury: PLAN: Plan This 63-year-old female being admitted for diarrhea, rapid emptying of ileostomy every hour since the night before admission. Oliguria/decreased urine output since last night. 1. Diarrhea with suspicion of acute gastroenteritis: During last admission in first week of March 2024, she was norovirus positive. At that time, triple PCR for SARS-CoV-2, flu and RSV are negative. Enteric pathogen and C. difficile ordered. Vigorous IV fluid rehydration; IV fluid normal saline at 150 mL/h ordered after 2 L of IV fluid normal saline bolus. Monitor input and output. 2. RALPH on CKD stage IV with hyperkalemia: Patient is stated her baseline creatinine is about 1.7. In February 28 creatinine was 1.75 but since then the lowest has been 2.13. 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 Serum potassium is 5.6. Buffet Server consulted 3. Hypotonic hypovolemic hyponatremia: Mild hyponatremia. Sodium 135 4. Diabetes mellitus type 2 with history of gastroparesis: Patient has insulin pump. Instruction given to nursing staff to continue the insulin pump. 5. GERD ? On PPI 6. Coronary artery disease -Has history of CABG and subsequent stent placement. Patient is on guideline directed medical therapy 7. MGUS ? Patient is followed by oncology as outpatient 8. History of ulcerative colitis: ? Status post ileostomy with resultant short gut syndrome. Patient on Lomotil and dicyclomine. 9. Essential hypertension: Hold antihypertensive medicine today monitor BP and adjust antihypertensive medications. 10. Chronic pain syndrome ? Patient is on buprenorphine 11. Anxiety and depression and mild dementia ? Patient is on duloxetine, lamotrigine, mirtazapine and galantamine 12. Psoriasis: 13. DVT prophylaxis - On heparin 5000 subcutaneous twice daily adjusted to creatinine clearance. Living will/advanced directive/end of life care: Patient does not living will or advanced directive. Her friend and partner at the bedside is GERARDO. After discussion of benefits/risks procedures involved with full code, DNR CC arrest and DNR CC, the patient opted for full code. Patient does want artificial life support including intubation, tube feed, ventilator and/chest compression, central venous catheter, vasopressor and DC shock if needed Total time spent in [id number] encounter in discussion of advanced directive 17 minutes. Laboratory Results 03/24/24 10:00: WBC 17.5 H, RBC 4.75, Hgb 12.9, Hct 41.9, MCV 88.2, MCH 27.2, MCHC 30.8 L, RDW Std Deviation 53.4 H, RDW Coeff of Jan 16.7 H, Plt Count 232, MPV 12.4 H, Immature Gran % (Auto) 0.700, Neut % (Auto) 79.1 H, Lymph % (Auto) 12.1 L, [place] % (Auto) 5.0, Eos % (Auto) 2.9, Baso % (Auto) 0.2, Absolute Neuts (auto) 13.9 H, Absolute Lymphs (auto) 2.12, Nucleated RBC % 0, Sodium 135 L, Potassium 5.6 H, Chloride 106, Carbon Dioxide 21.0, Anion Gap 9, BUN 44 H, Creatinine 2.38 H, Est GFR (MDRD) Af Amer 26 L, Est GFR (MDRD) Non-Af 22 L, BUN/Creatinine Ratio 18.5, Glucose 229 H, Calcium 10.6 H Charges/Coding Visit Charges Inpatient E&M: 63604 Init Hosp L3 Procedures Hospitalists Procedures: 44710 Advncd Care Plan 30 Min
[2024-03-24] MEDS: Morphine 4 MG/ML Syringe IV (12:17)
[2024-03-24] MEDS: Ondansetron 4 MG/2 ML Vial IV ×2 (12:17→21:12)
[2024-03-24 12:51] LABS: Magnesium 1.6 mg/dL (1.6-2.6); Phosphorus 3.8 mg/dL (2.5-4.9)
--- NOTE | 2024-03-24 14:44 | CPS ---
Pt has a BIPAP @home but did not bring, she declined one of our machines, wants to wear O2 @[facility]. will wear a machine if O2 doesn't keep her SpO2 >/90%.
[2024-03-24] MEDS: Lactated Ringers 1,000 ML 150 ML IV ×2 (14:56→21:11)
[2024-03-24] MEDS: Hyoscyamine Sulfate 0.125 MG Tablet PO (22:33)
[2024-03-24] MEDS: Dicyclomine 10 MG Capsule PO (22:33)
[2024-03-25 04:15] VITALS: BP 153/57; PULSE 91; RESP 18; TEMP 36.9; O2SAT 92
[2024-03-25 05:53] VITALS: BMI 31.4
[2024-03-25 06:01] LABS: Basophil# 0.01 X10^3/uL; Basophil% 0.1 % (0-1); Eosinophil# 0.54 X10^3/uL; Eosinophils% 6.3 % (0-5); Hematocrit 35.1 % (37-47); Hemoglobin 10.9 g/dL (12.0-15.0); Lymphocyte % 27.8 % (19-41); Mean Corp Hgb Conc 31.1 g/dL (32-36); Mean Corpuscular Hgb 27.3 pg (27.0-32.0); Mean Corpuscular Volume 87.8 fL (81-99); Mean Platelet Vol. 12.1 fl (6.2-12.0); Monocyte# 0.63 X10^3/uL; Monocyte% 7.3 % (0-10); NRBC Flagged by Analyzer 0 % (0-5); Neutrophil # 5.01 X10^3/uL (2.7-7.7); Platelet Count 195 K/mm3 (150-450); RBC Distribution Width CV 16.6 % (11.6-14.6); RBC Distribution Width SD 53.4 fl (35.1-43.9); White Blood Count 8.6 K/mm3 (4.4-11.0)
[2024-03-25] MEDS: Hyoscyamine Sulfate 0.125 MG Tablet PO (06:01)
[2024-03-25] MEDS: Dicyclomine 10 MG Capsule PO (06:01)
[2024-03-25 06:31] LABS: Anion Gap 4 (5-15); BUN 40 mg/dL (7-18); BUN/Creat Ratio 19.6 RATIO (10-20); Calcium,Total 9.2 mg/dL (8.5-10.1); Chloride 110 mmol/L (98-107); Creatinine, Serum 2.04 mg/dL (0.55-1.02); EST Glomerular Filtration Rate 26 mL/min (>60); Est Glom Filt Rate - Afr Amer 31 mL/min (>60); Estimated Creatinine Clearance 31.82 ml/min; Glucose 122 mg/dL (74-106); Potassium 4.6 mmol/L (3.5-5.1); Sodium Level 137 mmol/L (136-145)
[2024-03-25 07:10] VITALS: O2SAT 97
--- NOTE | 2024-03-25 08:04 | PCM.CONS.R ---
Assessment & Plan Assessment/Plan (1) Acute kidney injury: (2) Chronic kidney disease, stage 3b: PLAN: Plan Assessment/Plan: The patient is a 63-year-old female with past history of CKD stage G3b, type 2 diabetes mellitus, hypertension, CAD, HFpEF, COPD, ANKITA on CPAP, pulmonary hypertension, metabolic associated steatohepatitis (MASH), ulcerative colitis status post total colectomy, and hyperlipidemia. The patient presents to the hospital on 03/24/2024 with increased ostomy output, decreased urine output, and abdominal pain. The patient is admitted to the hospital for treatment of gastroenteritis. The patient had a similar presentation to the hospital earlier this month. Nephrology is asked to see the patient because of RALPH on CKD. Acute kidney injury on chronic kidney disease stage G3b. Baseline serum creatinine prior to March 2024 had been around 1.80 mg/dL. CKD is secondary to diabetic kidney disease. Recent acute kidney injury is most likely due to volume depletion related to increased ostomy output. Patient presented with serum creatinine of 2.38 mg/dL on 03/24/2024. Patient has been given isotonic saline boluses, and her BP is acceptable. Renal function has improved with volume expansion, and serum creatinine is down to 2.04 mg/dL today. Continue to keep MAP above 65 mmHg. Continue encourage oral intake. Since she is hemodynamically stable, there is no need for IV fluid from my standpoint. Will recheck renal function, volume status, acid-base and electrolytes again tomorrow. HPI Consult Data Date of Consult: 03/25/24 HPI Narrative Reason for Consultation: RALPH on CKD HPI Narrative: The patient is a 63-year-old female with past history of CKD stage G3b, type 2 diabetes mellitus, hypertension, CAD, HFpEF, COPD, ANKITA on CPAP, pulmonary hypertension, metabolic associated steatohepatitis (MASH), ulcerative colitis status post total colectomy, and hyperlipidemia. The patient presents to the hospital on 03/24/2024 with increased ostomy output, decreased urine output, and abdominal pain. The patient is admitted to the hospital for treatment of gastroenteritis. Nephrology is asked see the patient because of RALPH on CKD. Baseline serum creatinine has been around 1.80 mg/dL. Patient is followed in CKD clinic by my partner, Dr. Rico. The patient was recently admitted to the hospital between 03/10/2024 until 03/13/2024 with exacerbation of gastroenteritis/colitis with diarrhea. During this past admission, patient developed RALPH with serum creatinine as high as 5.47 mg/dL. Renal function improved with volume expansion, and serum creatinine decreased to 2.13 mg/dL on 03/13/2024 prior to discharge. Patient presents to the hospital on 03/24/2024 with serum creatinine of 2.38 mg/dL. Patient also had hyperkalemia with potassium level 5.6 mmol/L. There is no prolonged periods of hypotension since presentation to the hospital. The patient denies current chest pain or pressure. There is no dyspnea. She denies current nausea or vomiting. Ostomy output has also slowed down. There is no edema of the lower extremities. [facility] Medical History CKD (chronic kidney disease), stage IV CAD (coronary artery disease) Hypertension MGUS (monoclonal gammopathy of unknown significance) Dehydration Falls Hypoxic respiratory failure Hypercapnic respiratory failure Fatigue Low back pain Abnormality of gait and mobility Polyneuropathy Insulin pump titration Presence of insulin pump Health care maintenance Essential tremor Dementia History of stress test Fungal dermatitis Herpes genitalia Encounter for insertion of venous access port Post-menopausal Rash Back pain Arthritis Ambulates with cane History of renal disease High cholesterol Dietary restriction History of pain when walking History of echocardiogram Chronic kidney disease (CKD) stage G4/A2, severely decreased glomerular filtration rate (GFR) between 15-29 mL/min/1.73 square meter and albuminuria creatinine ratio between 30-299 mg/g Chronic kidney disease (CKD) stage G4/A1, severely decreased glomerular filtration rate (GFR) between 15-29 mL/min/1.73 square meter and albuminuria creatinine ratio less than 30 mg/g Ingrown toenail Neuropathy Hyperglycemia due to diabetes mellitus Frequent falls Tremor Depression Chronic pain Rheumatoid arthritis Congestive heart failure (CHF) Lumbar spondylosis Greater trochanteric bursitis CKD (chronic kidney disease) stage 3, GFR 30-59 ml/min Malaise and fatigue Vitamin B12 deficiency History of CAD (coronary artery disease) Memory loss Anxiety and depression Degenerative disc disease at L5-S1 level CAD (coronary artery disease) Cellulitis, abdominal wall Left shoulder pain Gastroparesis Vitamin D deficiency Acute kidney injury High output ileostomy Elevated anti-tissue transglutaminase (tTG) IgA level Ileostomy present Short bowel syndrome Loss of hearing Wears glasses History of COVID-19 Anxiety Insulin dependent diabetes mellitus Walker as ambulation aid Fatty liver Migraine headache Hx of diabetic gastroparesis Gastric reflux Former smoker BiPAP (biphasic positive airway pressure) dependence Cardiology follow-up encounter Myoclonic jerking Chronic narcotic use Avascular necrosis of bone of left hip Chronic back pain Non-alcoholic fatty liver disease Liver mass Ulcerative colitis Nonalcoholic steatohepatitis Chronic respiratory failure Smoking greater than 20 pack years Obesity Chronic respiratory failure with hypoxia, on home O2 therapy Diabetic gastroparesis Secondary pulmonary arterial hypertension Chronic diastolic (congestive) heart failure Type 2 diabetes mellitus with diabetic polyneuropathy BMI 31.0-31.9,adult Depression with anxiety Arthritis Menieres disease Hyperlipidemia Psoriasis Obstructive sleep apnea COPD (chronic obstructive pulmonary disease) FCHL (familial combined hyperlipidemia) DM2 (diabetes mellitus, type 2) Home Medications ?Medication ?Instructions ?Recorded ?Last Taken ?Type blood-glucose meter,continuous 11/15/21 Unknown History (Dexcom G6 [employer]) cyclobenzaprine 10 mg tablet 10 mg PO TID PRN muscle spasm #30 02/24/23 04/30/23 Rx tabs pantoprazole 40 mg tablet,delayed 40 mg PO BID GERD #60 tabs 04/29/23 02/17/24 Rx release (Protonix) albuterol sulfate 90 mcg/actuation 2 puff inhalation BID PRN SOB 05/01/23 02/17/24 History aerosol inhaler lamotrigine 200 mg tablet 200 mg PO DAILY mood 05/01/23 02/17/24 History diphenoxylate-atropine 2.5 1 tab PO TID PRN diarrhea 06/21/23 09/04/23 History mg-0.025 mg tablet (Lomotil) atorvastatin 80 mg tablet 80 mg PO QHS CHOLESTEROL LOWERING 07/22/23 02/16/24 Rx #90 tabs buprenorphine HCl 150 mcg buccal 150 mcg buccal Q12H pain 08/04/23 02/17/24 History film metoprolol tartrate 25 mg tablet 75 mg PO BID bp 09/18/23 02/17/24 History rimegepant 75 mg disintegrating 75 mg PO DAILY PRN migraine 10/29/23 Unknown Rx tablet (Nurtec ODT) headache #16 tabs blood-glucose sensor (Dexcom G6 #9 ea 12/07/23 Unknown Rx Sensor device) isosorbide dinitrate 30 mg tablet 30 mg PO BID heart #60 tabs 12/08/23 02/17/24 Rx duloxetine 60 mg capsule,delayed 60 mg PO BID mental health 12/23/23 02/17/24 History release hyoscyamine sulfate 0.125 mg tablet 0.125 mg PO BID-QID PRN dyspepsia 12/23/23 Unknown History mirtazapine 7.5 mg tablet 7.5 mg PO QHS mental health #30 12/23/23 02/16/24 Rx tabs fluticasone propionate 50 2 spray intranasal DAILY allergies 01/04/24 02/17/24 Rx mcg/actuation nasal #16 grams spray,suspension (Flonase Allergy Relief) bupropion HCl 75 mg tablet 75 mg PO BID mental health #60 tabs 02/01/24 02/17/24 Rx galantamine 16 mg 24 hr 16 mg PO QDAY memory 02/01/24 02/17/24 History capsule,extended release clopidogrel 75 mg tablet 75 mg PO DAILY anti platelet #28 02/02/24 02/17/24 Rx TABLETS insulin lispro 200 unit/mL (3 mL) 1 sliding scale dose subcut ACHS 02/17/24 02/17/24 History subcutaneous pen (Humalog KwikPen diabetes U-200 Insulin) melatonin 5 mg tablet 5 mg PO QHS PRN sleep 02/17/24 Unknown History metoprolol tartrate 50 mg tablet 50 mg PO BID blood pressure 02/17/24 02/17/24 History triamcinolone acetonide 0.1 % 1 applic topical DAILY PRN 02/17/24 Unknown History topical ointment psoriasis pregabalin 75 mg capsule 75 mg PO DAILY pain #30 caps 02/22/24 Unknown Rx aspirin 81 mg tablet,delayed 81 mg PO DAILY heart health #30 02/24/24 Unknown Rx release tabs nitroglycerin 0.4 mg sublingual 0.4 mg sublingual Q5-15M PRN chest 02/24/24 Unknown Rx tablet pain #25 tabs evolocumab 140 mg/mL subcutaneous 140 mg subcut Q2W #6 mL 02/29/24 Unknown Rx pen injector (Geraldine Collins) primidone 50 mg tablet See Rx Instructions .Route 03/07/24 Unknown Rx .COMPLEX #60 tabs insulin pump cart,auto,BT,G6/7 #45 ea 03/10/24 Unknown Rx (Omnipod 5 G6-G7 Pods (Gen 5) subcutaneous cartridge) dicyclomine 10 mg capsule 10 mg PO BID PRN stomach 03/11/24 Unknown History cholecalciferol (vitamin D3) 1,250 1,250 mcg PO .monthly vit 03/24/24 Unknown History mcg (50,000 unit) capsule Allergy/AdvReac Type Severity Reaction Status Date / Time cinnamon (Cinnamon) Allergy Severe Anaphylaxis Verified 03/24/24 09:35 Influenza Virus Vaccines Allergy Severe Shortness Verified 03/24/24 09:35 of breath liraglutide (From Victoza) Allergy Severe Anaphylaxis Verified 03/24/24 09:35 ciprofloxacin Allergy Intermediate Swelling Verified 03/24/24 09:35 metformin (From Glucophage) Allergy Mild Nausea Verified 03/24/24 09:35 metronidazole (From Flagyl) Allergy Hives Verified 03/24/24 09:35 Metronidazole HCl (From Allergy Hives Verified 03/24/24 09:35 Flagyl) Penicillins Allergy Hives Verified 03/24/24 09:35 Sulfa (Sulfonamide Allergy Hives Verified 03/24/24 09:35 Antibiotics) aripiprazole (From Abilify) AdvReac hallucinati Verified 03/24/24 09:35 ons metformin HCl (From AdvReac Nausea Verified 03/24/24 09:35 Glucophage) ranolazine AdvReac Nausea/Vom/ Verified 03/24/24 09:35 Diarrhea Dknuoyh-TIL-NpS Reductase AdvReac Nausea/joints Verified 03/24/24 09:35 Inhibitor (Ttstfvt-Nwi-Weg ache Reductase Inhibitor) Family History Mother CVA (cerebral vascular accident) Diabetes Brother Heart disease of CAD at 65 Myocardial infarction Pancreatitis Father Cancer lymphomia Lymphoma Grandmother Myocardial infarction of PR in her 70s Sister COPD (chronic obstructive pulmonary disease) Surgical History History of vascular access device History of colonoscopy History of esophagogastroduodenoscopy (EGD) History of appendectomy History of coronary artery stent placement H/O total hip arthroplasty Status post total hip replacement, left History of cardiac catheterization History of History of cholecystectomy H/O coronary artery bypass surgery (05/18/12) History of coronary artery stent placement (01/12/18) H/O sinus surgery history closed fissure Ileostomy status H/O colectomy left thumb surgery H/O total hysterectomy ileostomy Social History household members: spouse and none Smoking Status: Former smoker quit date: 03/08/12 how long ago did patient quit smoking: quit in 2012; 0.5-1ppd x 30yrs alcohol intake: never substance use type: does not use diet: diabetic caffeine: No eating out: 1-3 times/week what type of physical activity do you participate in: none seatbelt use: always do you feel safe at home: Yes ROS ROS Narrative As per HPI, otherwise noncontributory. Physical Exam Narrative General: Alert and oriented x3, NAD. HEENT: Normocephalic, atraumatic. Mucous membrane moist without erythema. PERRLA, EOMI. Hearing is intact. Neck: Supple, no JVD. Trachea is midline. No thyromegaly or lymphadenopathy. Cardiovascular: Normal S1, S2. No rubs, murmurs, or gallops. Respiratory: Lungs are clear to auscultation bilaterally. No wheezing, rhonchi, or rales. Abdomen: Normal bowel sounds, soft, nontender, no guarding or rebound, no organomegaly. Extremities: No clubbing, cyanosis, or edema. Musculoskeletal: Full passive range of motion, no joint swelling. Psychiatric: Normal mood and affect. Skin: Warm and dry, no rash. Neurologic: Cranial nerve II to XII are grossly intact. No focal neurologic deficits. Lab / Micro Data 03/25/24 05:31 03/25/24 05:31 Labs: Laboratory Results - last 24 hr 03/24/24 10:00: WBC 17.5 H, RBC 4.75, Hgb 12.9, Hct 41.9, MCV 88.2, MCH 27.2, MCHC 30.8 L, RDW Std Deviation 53.4 H, RDW Coeff of Jan 16.7 H, Plt Count 232, MPV 12.4 H, Immature Gran % (Auto) 0.700, Neut % (Auto) 79.1 H, Lymph % (Auto) 12.1 L, [place] % (Auto) 5.0, Eos % (Auto) 2.9, Baso % (Auto) 0.2, Absolute Neuts (auto) 13.9 H, Absolute Lymphs (auto) 2.12, Nucleated RBC % 0, Sodium 135 L, Potassium 5.6 H, Chloride 106, Carbon Dioxide 21.0, Anion Gap 9, BUN 44 H, Creatinine 2.38 H, Est GFR (MDRD) Af Amer 26 L, Est GFR (MDRD) Non-Af 22 L, BUN/Creatinine Ratio 18.5, Glucose 229 H, Calcium 10.6 H, Phosphorus 3.8, Magnesium 1.6 03/25/24 05:31: WBC 8.6, RBC 4.00 L, Hgb 10.9 L, Hct 35.1 L, MCV 87.8, MCH 27.3, MCHC 31.1 L, RDW Std Deviation 53.4 H, RDW Coeff of Jan 16.6 H, Plt Count 195, MPV 12.1 H, Immature Gran % (Auto) 0.500, Neut % (Auto) 58.0, Lymph % (Auto) 27.8, [place] % (Auto) 7.3, Eos % (Auto) 6.3 H, Baso % (Auto) 0.1, Absolute Neuts (auto) 5.0, Absolute Lymphs (auto) 2.40, Nucleated RBC % 0, Sodium 137, Potassium 4.6, Chloride 110 H, Carbon Dioxide 24.0, Anion Gap 4 L, BUN 40 H, Creatinine 2.04 H, Estim Creat Clear Calc 31.82, Est GFR (MDRD) Af Amer 31 L, Est GFR (MDRD) Non-Af 26 L, BUN/Creatinine Ratio 19.6, Glucose 122 H, Calcium 9.2 Micro: Microbiology 03/24/24 12:00 Stool Stool Lactoferrin - Final 03/24/24 12:00 Stool Stool Occult Blood (MAYTE) - Final Occult Blood Positive 03/24/24 12:12 Stool Enteric Bacteriology - Final 03/24/24 12:12 Stool Clostridioides difficile (PCR) - Final
[2024-03-25] MEDS: Acetaminophen 325 MG Tablet 650 MG PO ×2 (08:48→15:55)
[2024-03-25 08:53] VITALS: BP 135/61; PULSE 102; RESP 16; TEMP 36.8; O2SAT 93
[2024-03-25 11:04] VITALS: BP 138/58; PULSE 96; RESP 16; TEMP 36.8; O2SAT 94
--- NOTE | 2024-03-25 13:30 | CASEMGMT ---
SVETLANA RAINEY chart review: Patient was admitted 03/10-03/13/24 for RALPH and Norovirus. See assessment from 03/11/24. Patient was discharged to home with family support and follow-up plans in place. Patient returned to [facility] ED on 03/24/24 for diarrhea and was admitted for RALPH, suspicion for gastroenteritis. SVETLANA RAINEY in to discuss readmission and needs at discharge. Patient states she feels she is still having symptoms for Norovirus. Patient states she has been taking medications as prescribed and has been attending follow up appts. Patient states she has follow-up appt with PCP on 03/29/[address] Andino in [facility]. Patient is currently on 2lpm, wear 2lpm with extertion at home. Green sheet placed on chart for increase in home oxygen. Patient denies further needs or concerns at discharge. Patient to discharge home with family support and follow up plans in place.
--- NOTE | 2024-03-25 15:15 | PCM.PN.HOSP ---
Reason for Visit Reason for Visit: Diagnoses Viral intestinal infection, unspecified (03/24/24) Acute kidney failure, unspecified (03/24/24) Chronic kidney disease, stage 3b (03/24/24) Objective Data Objective Data Vital Signs: Vital Signs Temp Pulse Resp BP Pulse Ox O2 Del Method O2 Flow Rate 98.2 F 96 16 138/58 H 94 Nasal Cannula 2 03/25/24 11:04 03/25/24 11:04 03/25/24 11:04 03/25/24 11:04 03/25/24 11:04 03/25/24 11:04 03/25/24 11:04 Oxygen Flow Rate (L/min) 2 Oxygen Delivery Method Nasal Cannula Weight: 200 lb 6.403 oz Body Mass Index (BMI) 31.4 Intake & Output: Intake and Output for Last 24 Hours 03/23/24 03/24/24 03/25/24 23:59 23:59 23:59 Intake Total 2937.5 / 2937.5 1000 / 1000 Output Total 1400 / 1400 250 / 250 Balance 1537.5 / 1537.5 750 / 750 Lab / Micro Data 03/25/24 05:31 03/25/24 05:31 Labs: Laboratory Results - last 24 hr 03/25/24 05:31: WBC 8.6, RBC 4.00 L, Hgb 10.9 L, Hct 35.1 L, MCV 87.8, MCH 27.3, MCHC 31.1 L, RDW Std Deviation 53.4 H, RDW Coeff of Jan 16.6 H, Plt Count 195, MPV 12.1 H, Immature Gran % (Auto) 0.500, Neut % (Auto) 58.0, Lymph % (Auto) 27.8, Leslie % (Auto) 7.3, Eos % (Auto) 6.3 H, Baso % (Auto) 0.1, Absolute Neuts (auto) 5.0, Absolute Lymphs (auto) 2.40, Nucleated RBC % 0, Sodium 137, Potassium 4.6, Chloride 110 H, Carbon Dioxide 24.0, Anion Gap 4 L, BUN 40 H, Creatinine 2.04 H, Estim Creat Clear Calc 31.82, Est GFR (MDRD) Af Amer 31 L, Est GFR (MDRD) Non-Af 26 L, BUN/Creatinine Ratio 19.6, Glucose 122 H, Calcium 9.2 Micro: Microbiology 03/24/24 12:00 Stool Stool Lactoferrin - Final 03/24/24 12:00 Stool Stool Occult Blood (MAYTE) - Final Occult Blood Positive 03/24/24 12:12 Stool Enteric Bacteriology - Final 03/24/24 12:12 Stool Clostridioides difficile (PCR) - Final Physical Exam Narrative Seen and examined. Overall patient hydration his discharge looks better. There is thickening in the stool consistency in the ileostomy bag. Stool test for enteric pathogen and C. difficile negative. Discontinue isolation. Physical exam General: Alert, Oriented x3, Cooperative HEENT: Atraumatic, PERRLA, EOMI, Normocephalic Oral: Oral mucosa dry but better than yesterday. No Gingival or Mucosal Lesions/ Ulcerations Neck: Supple, No JVD, Negative Carotid Bruits Chest wall/Lungs: Air entry diminished in bilateral lung bases. No crepitation/rhonchi Cardiovascular: Regular rate, Regular Rhythm, Normal S1, Normal S2, No M/G/R Abdomen: No tenderness. Bowel sounds normal. LLQ ileostomy, yellowish thick, not watery fecal matter. Surgical scar present. : No dysuria. No renal angle tenderness. No suprapubic tenderness. Extremities: No edema, Capillary Refill Less than 3 Seconds Skin: No rashes, No breakdown Musculoskeletal: No Tenderness to Palpation of Joints or Extremities Neurological: Cranial nerves II-XII grossly intact, DTR 2+/4. No acute focal neurological deficit. Psych/Mental Status: Flat affect. Intermittent hallucinations at home Assessment & Plan Assessment/Plan (1) Viral gastroenteritis: (2) Acute kidney injury: PLAN: Plan This 63-year-old female being admitted for diarrhea, rapid emptying of ileostomy every hour since the night before admission. Oliguria/decreased urine output since last night. 1. Diarrhea with suspicion of acute gastroenteritis: During last admission in first week of March 2024, she was norovirus positive. At that time, triple PCR for SARS-CoV-2, flu and RSV are negative. Enteric pathogen and C. difficile ordered. Vigorous IV fluid rehydration; IV fluid normal saline at 150 mL/h ordered after 2 L of IV fluid normal saline bolus. Monitor input and output. 03/25: Stool for enteric pathogen and C. difficile negative. Stool for WBC negative but occult blood positive. Continue IV fluid rehydration 75 mL/h. Leukocytosis improved and resolved 2. RALPH on CKD stage IV with hyperkalemia: Patient is stated her baseline creatinine is about 1.7. In February 28 creatinine was 1.75 but since then the lowest has been 2.13. She follows hospital monitor with us already. Serum potassium is 5.6. Stitcher Tape Controlled Machine consulted 03/25: Patient states her urine is light yellow color and urine output has increased. BUN/creatinine also improving. Creatinine 2.0. Continue IV fluid rehydration. 3. Hypotonic hypovolemic hyponatremia: Mild hyponatremia. Sodium 135 03/25 serum sodium 137. 4. Diabetes mellitus type 2 with history of gastroparesis: Patient has insulin pump. Instruction given to nursing staff to continue the insulin pump. 03/25 glucose is controlled. 5. GERD ? On PPI 6. Coronary artery disease -Has history of CABG and subsequent stent placement. Patient is on guideline directed medical therapy 7. MGUS ? Patient is followed by oncology as outpatient 8. History of ulcerative colitis: ? Status post ileostomy with resultant short gut syndrome. Patient on Lomotil and dicyclomine. 9. Essential hypertension: Hold antihypertensive medicine today monitor BP and adjust antihypertensive medications. 10. Chronic pain syndrome ? Patient is on buprenorphine 11. Anxiety and depression and mild dementia ? Patient is on duloxetine, lamotrigine, mirtazapine and galantamine 12. Psoriasis: 13. DVT prophylaxis - On heparin 5000 subcutaneous twice daily adjusted to creatinine clearance. Living will/advanced directive/end of life care: Patient does not living will or advanced directive. Her friend and partner at the bedside is POA. After discussion of benefits/risks procedures involved with full code, DNR CC arrest and DNR CC, the patient opted for full code. Patient does want artificial life support including intubation, tube feed, ventilator and/chest compression, central venous catheter, vasopressor and DC shock if needed Microbiology Past 72 Hours 03/24/24 12:00 Stool Stool Lactoferrin - Final 03/24/24 12:00 Stool Stool Occult Blood (MAYTE) - Final Occult Blood Positive 03/24/24 12:12 Stool Enteric Bacteriology - Final 03/24/24 12:12 Stool Clostridioides difficile (PCR) - Final Laboratory Results 03/25/24 05:31: WBC 8.6, RBC 4.00 L, Hgb 10.9 L, Hct 35.1 L, MCV 87.8, MCH 27.3, MCHC 31.1 L, RDW Std Deviation 53.4 H, RDW Coeff of Jan 16.6 H, Plt Count 195, MPV 12.1 H, Immature Gran % (Auto) 0.500, Neut % (Auto) 58.0, Lymph % (Auto) 27.8, Leslie % (Auto) 7.3, Eos % (Auto) 6.3 H, Baso % (Auto) 0.1, Absolute Neuts (auto) 5.0, Absolute Lymphs (auto) 2.40, Nucleated RBC % 0, Sodium 137, Potassium 4.6, Chloride 110 H, Carbon Dioxide 24.0, Anion Gap 4 L, BUN 40 H, Creatinine 2.04 H, Estim Creat Clear Calc 31.82, Est GFR (MDRD) Af Amer 31 L, Est GFR (MDRD) Non-Af 26 L, BUN/Creatinine Ratio 19.6, Glucose 122 H, Calcium 9.2 03/24/24 10:00: WBC 17.5 H, RBC 4.75, Hgb 12.9, Hct 41.9, MCV 88.2, MCH 27.2, MCHC 30.8 L, RDW Std Deviation 53.4 H, RDW Coeff of Jan 16.7 H, Plt Count 232, MPV 12.4 H, Immature Gran % (Auto) 0.700, Neut % (Auto) 79.1 H, Lymph % (Auto) 12.1 L, Leslie % (Auto) 5.0, Eos % (Auto) 2.9, Baso % (Auto) 0.2, Absolute Neuts (auto) 13.9 H, Absolute Lymphs (auto) 2.12, Nucleated RBC % 0, Sodium 135 L, Potassium 5.6 H, Chloride 106, Carbon Dioxide 21.0, Anion Gap 9, BUN 44 H, Creatinine 2.38 H, Est GFR (MDRD) Af Amer 26 L, Est GFR (MDRD) Non-Af 22 L, BUN/Creatinine Ratio 18.5, Glucose 229 H, Calcium 10.6 H Charges/Coding Visit Charges Inpatient E&M: 92593 Subs Hosp L2
[2024-03-25] MEDS: Lactated Ringers 1,000 ML 75 ML IV (15:54)
[2024-03-25 17:05] VITALS: BP 131/74; PULSE 98; RESP 16; TEMP 36.8; O2SAT 93
[2024-03-25 22:55] VITALS: BP 134/86; PULSE 96; RESP 18; TEMP 37; O2SAT 94
[2024-03-26 04:09] LABS: Absolute Lymphocyte Count 1.73 X10^3/uL (0.83-4.51); Absolute Neutrophil Count 3.8 X10^3/uL (2.0-7.7); Basophil# 0.02 X10^3/uL; Basophil% 0.3 % (0-1); Eosinophil# 0.58 X10^3/uL; Eosinophils% 8.9 % (0-5); Hematocrit 37.3 % (37-47); Hemoglobin 11.6 g/dL (12.0-15.0); Lymphocyte # 1.73 X10^3/ul (0.83-4.51); Lymphocyte % 26.5 % (19-41); Mean Corp Hgb Conc 31.1 g/dL (32-36); Mean Corpuscular Hgb 27.2 pg (27.0-32.0); Mean Corpuscular Volume 87.4 fL (81-99); Mean Platelet Vol. 11.9 fl (6.2-12.0); Monocyte% 6.1 % (0-10); NRBC Flagged by Analyzer 0 % (0-5); Neutrophil # 3.75 X10^3/uL (2.7-7.7); Neutrophil % 57.6 % (47-70); Platelet Count 195 K/mm3 (150-450); RBC Distribution Width CV 16.2 % (11.6-14.6); RBC Distribution Width SD 51.3 fl (35.1-43.9); Red Blood Count 4.27 M/mm3 (4.2-5.4); White Blood Count 6.5 K/mm3 (4.4-11.0)
[2024-03-26 04:24] LABS: Anion Gap 5 (5-15); BUN 32 mg/dL (7-18); BUN/Creat Ratio 18.8 RATIO (10-20); Calcium,Total 9.6 mg/dL (8.5-10.1); Chloride 109 mmol/L (98-107); EST Glomerular Filtration Rate 32 mL/min (>60); Est Glom Filt Rate - Afr Amer 39 mL/min (>60); Estimated Creatinine Clearance 38.19 ml/min; Glucose 209 mg/dL (74-106); Potassium 4.9 mmol/L (3.5-5.1); Sodium Level 137 mmol/L (136-145)
[2024-03-26 05:53] VITALS: BP 148/83; PULSE 95; RESP 16; TEMP 36.9; O2SAT 96
[2024-03-26 06:00] VITALS: BMI 31.4
[2024-03-26 08:40] VITALS: BP 139/76; PULSE 91; RESP 14; TEMP 36.7; O2SAT 95
--- NOTE | 2024-03-26 10:02 | DCINST_ITS ---
Discharge Instructions Diet Discharge Diet: No restrictions DC O2, CPAP, BIPAP needs Home O2 Discharge instructions: No Dressing / Incision Discharge Activity: Return to Normal Activity Weight Bearing Status: Weight bearing as tolerated Dressing / Incision Call your doctor if you observe: Fever of 101 or Higher, Coldness, Increased Pain, Numbness or Tingling, Change in Color, Inability to urinate, Inability to have a bowel movement, Shortness of breath, Dizziness, Fainting spells, Swelling in the ankles, Chest pain, Prolonged hiccupping, Increased palpitations (irregular heartbeat) and Calf discomfort Follow Up Care When: IN 2 WEEKS Test Results: Test results from this visit will be discussed in further detail at your follow- up appointment, if applicable. Discharge Plan Admission Admit Date/Time: 03/24/24 12:09 Primary Reason for Your Visit: Acute gastroenteritis Attending Provider: Castillo Ferris Primary Care Provider: Mala Mcgrath Consulting Providers: Eloy Guan Discharge Orders/Prescriptions Prescriptions: Continued cyclobenzaprine 10 mg tablet 10 mg PO TID PRN (Reason: muscle spasm) Qty: 30 0RF Nurtec ODT 75 mg tablet,disintegrating 75 mg PO DAILY PRN (Reason: migraine headache) Qty: 16 5RF aspirin 81 mg tablet,delayed release (DR/EC) 81 mg PO DAILY Qty: 30 11RF nitroglycerin 0.4 mg tablet, sublingual 0.4 mg sublingual Q5-15M PRN (Reason: chest pain) Qty: 25 3RF Rx Instructions: do not exceed 3 doses per episode hyoscyamine sulfate 0.125 mg tablet 0.125 mg PO BID-QID PRN (Reason: dyspepsia) duloxetine 60 mg capsule,delayed release(DR/EC) 60 mg PO BID galantamine 16 mg capsule,ext rel. 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 See Rx Instructions .ROUTE .MEDSUPPLY Rx Instructions: As directed diphenoxylate-atropine [Lomotil] 2.5-0.025 mg tablet 1 tab PO TID PRN (Reason: diarrhea) buprenorphine HCl 150 mcg film 150 mcg buccal Q12H metoprolol tartrate 25 mg tablet 75 mg PO BID Rx Instructions: take 25 mg with a 50 mg tablet twice a day to = 75 mg twice a day; metoprolol tartrate 50 mg tablet 50 mg PO BID Patient Comments: take 25 mg orally with a 50 mg tablet twice a day to = 75 mg twice a day; Humalog KwikPen Insulin 200 unit/mL (3 mL) insulin pen 1 sliding scale dose subcut ACHS Patient Comments: pt has an insulin pump. she states it give continuous supply, and at meals she enters carbs, and it performs calculations and supplies insulin. triamcinolone acetonide 0.1 % ointment 1 applic topical DAILY PRN (Reason: psoriasis) albuterol sulfate 90 mcg/actuation HFA aerosol inhaler 2 puff INHALATION BID PRN (Reason: SOB) dicyclomine 10 mg Capsule 10 mg PO BID PRN (Reason: stomach) cholecalciferol (vitamin D3) 1,250 mcg (50,000 unit) capsule 1,250 mcg PO .monthly lamotrigine 200 mg tablet 200 mg PO DAILY 30 Days Qty: 0 0RF Rx Instructions: Hold for lethargy/sedation mirtazapine 7.5 mg tablet 7.5 mg PO QHS Qty: 30 1RF Rx Instructions: Hold for lethargy/sedation pantoprazole [Protonix] 40 mg tablet,delayed release (DR/EC) 40 mg PO BID Qty: 60 11RF atorvastatin 80 mg tablet 80 mg PO QHS Qty: 90 3RF Patient Comments: cholesterol (DME) Dexcom G6 Sensor Device See Rx Instructions .Route Qty: 9 1RF Rx Instructions: As directed isosorbide dinitrate 30 mg tablet 30 mg PO BID Qty: 60 11RF fluticasone propionate [Flonase Allergy Relief] 50 mcg/actuation spray,suspension 2 spray intranasal DAILY Qty: 16 3RF Rx Instructions: administer into each nostril clopidogrel 75 mg tablet 75 mg PO DAILY Qty: 28 11RF pregabalin 75 mg capsule 75 mg PO DAILY Qty: 30 1RF Repatha SureClick 140 mg/mL pen injector 140 mg subcut Q2W Qty: 6 3RF (DME) Omnipod 5 G6-G7 Pods (Gen 5) Cartridge See Rx Instructions .Route Qty: 45 1RF Rx Instructions: change every 48 hours Held melatonin 5 mg tablet 5 mg PO QHS PRN (Reason: sleep) Hold Instructions: Hold for lethargy/sedation Referrals / Follow Up: Mala Mcgrath MD [Primary Care Provider] - Aj Andino DO [Med Staff - Active Staff] - Within 1 Month (For short-bowel syndrome. Call office on 03/27/2024) Disposition Disposition (needs filled in before D/C Order can be placed): Home, Self Care
--- NOTE | 2024-03-26 11:07 | DS.PCM_ITS ---
Providers Date of Admission: 03/24/24 Date of Discharge: 03/26/24 Primary Care Physician: Dr. Mala Mcgrath MD Consultations 03/24/24 14:32 Consult: Nephrology Routine Consulting Provider: Eloy Guan Reason for Consult: RALPH on CKD 4, ESRD on HD EMERGENT Consult: No MD Notified: Yes Date Notified: 03/24/24 Time Notified: 14:32 Method of Notification: Verbal Reason For Visit: Diarrhea Diagnosis Discharge Diagnosis (1) Viral gastroenteritis: Status: Acute Code(s): A08.4 - Viral intestinal infection, unspecified (2) Acute kidney injury: Status: Acute Code(s): N17.9 - Acute kidney failure, unspecified Plan This 63-year-old female being admitted for diarrhea, rapid emptying of ileostomy every hour since the night before admission. Oliguria/decreased urine output since last night. 1. Diarrhea with suspicion of acute gastroenteritis: During last admission in first week of March 2024, she was norovirus positive. At that time, triple PCR for SARS-CoV-2, flu and RSV are negative. Enteric pathogen and C. difficile ordered. Vigorous IV fluid rehydration; IV fluid normal saline at 150 mL/h ordered after 2 L of IV fluid normal saline bolus. Monitor input and output. 03/25: Stool for enteric pathogen and C. difficile negative. Stool for WBC negative but occult blood positive. Continue IV fluid rehydration 75 mL/h. Leukocytosis improved and resolved 03/26: Patient is well rehydrated. Advised to call [facility] office tomorrow for resumption of her regular IV fluid outpatient infusion. 2. RALPH on CKD stage IV with hyperkalemia: Patient is stated her baseline creatinine is about 1.7. In February 28 creatinine was 1.75 but since then the lowest has been 2.13. 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 Serum potassium is 5.6. [employer] consulted 03/25: Patient states her urine is light yellow color and urine output has increased. BUN/creatinine also improving. Creatinine 2.0. Continue IV fluid rehydration. 03/26: RALPH resolved. Creatinine 1.7 at baseline. 3. Hypotonic hypovolemic hyponatremia: Mild hyponatremia. Sodium 135 03/25 serum sodium 137. 03/26: Serum sodium 137. 4. Diabetes mellitus type 2 with history of gastroparesis: Patient has insulin pump. Instruction given to nursing staff to continue the insulin pump. 03/25 glucose is controlled. 5. GERD ? On PPI 6. Coronary artery disease -Has history of CABG and subsequent stent placement. Patient is on guideline directed medical therapy 7. MGUS ? Patient is followed by oncology as outpatient 8. History of ulcerative colitis: ? Status post ileostomy with resultant short gut syndrome. Patient on Lomotil and dicyclomine. 9. Essential hypertension: Hold antihypertensive medicine today monitor BP and adjust antihypertensive medications. 10. Chronic pain syndrome ? Patient is on buprenorphine 11. Anxiety and depression and mild dementia ? Patient is on duloxetine, lamotrigine, mirtazapine 03/26: Patient was little drowsy on the day of admission probably due to multiple neurological medications including lamotrigine, mirtazapine and duloxetine, cyclobenzaprine and primidone. Advised to hold lamotrigine mirtazapine and cyclobenzaprine for lethargy/sedation. Contact PCP. Acute encephalopathy probably due to medications/metabolic from dehydration resolved 12. Psoriasis: 13. DVT prophylaxis - On heparin 5000 subcutaneous twice daily adjusted to creatinine clearance. Living will/advanced directive/end of life care: Patient does not living will or advanced directive. Her friend and partner at the bedside is POA. After discussion of benefits/risks procedures involved with full code, DNR CC arrest and DNR CC, the patient opted for full code. Patient does want artificial life support including intubation, tube feed, ventilator and/chest compression, central venous catheter, vasopressor and DC shock if needed Discharge medication reconciliation done. Discharge follow-up instructions completed. Discharge process discussed with the patient and all questions were answered to patient's satisfaction. Follow with PCP in 1 to 2 weeks Total time spent, exact 35 minutes on discharge meds reconciliation, examination, coordination of care with nurses and ancillary staff, review of imaging and blood test and discussion with the patient on follow-up instructions. Microbiology Past 72 Hours 03/24/24 12:00 Stool Stool Lactoferrin - Final 03/24/24 12:00 Stool Stool Occult Blood (MAYTE) - Final Occult Blood Positive 03/24/24 12:12 Stool Enteric Bacteriology - Final 03/24/24 12:12 Stool Clostridioides difficile (PCR) - Final Medications at Discharge Home Medications blood-glucose meter,continuous (Dexcom G6 Truck Driver Flatbed) 11/15/21 cyclobenzaprine 10 mg tablet 10 mg PO TID PRN muscle spasm #30 tabs 02/24/23 pantoprazole 40 mg tablet,delayed release (Protonix) 40 mg PO BID GERD #60 tabs 04/29/23 albuterol sulfate 90 mcg/actuation aerosol inhaler 2 puff inhalation BID PRN SOB 05/01/23 diphenoxylate-atropine 2.5 mg-0.025 mg tablet (Lomotil) 1 tab PO TID PRN diarrhea 06/21/23 atorvastatin 80 mg tablet 80 mg PO QHS CHOLESTEROL LOWERING #90 tabs 07/22/23 buprenorphine HCl 150 mcg buccal film 150 mcg buccal Q12H pain 08/04/23 metoprolol tartrate 25 mg tablet 75 mg PO BID bp 09/18/23 rimegepant 75 mg disintegrating tablet (Nurtec ODT) 75 mg PO DAILY PRN migraine headache #16 tabs 10/29/23 blood-glucose sensor ([employer] G6 Sensor device) #9 ea 12/07/23 isosorbide dinitrate 30 mg tablet 30 mg PO BID heart #60 tabs 12/08/23 duloxetine 60 mg capsule,delayed release 60 mg PO BID mental health 12/23/23 hyoscyamine sulfate 0.125 mg tablet 0.125 mg PO BID-QID PRN dyspepsia 12/23/23 fluticasone propionate 50 mcg/actuation nasal spray,suspension (Flonase Allergy Relief) 2 spray intranasal DAILY allergies #16 grams 01/04/24 bupropion HCl 75 mg tablet 75 mg PO BID mental health #60 tabs 02/01/24 galantamine 16 mg 24 hr capsule,extended release 16 mg PO QDAY memory 02/01/24 clopidogrel 75 mg tablet 75 mg PO DAILY anti platelet #28 TABLETS 02/02/24 insulin lispro 200 unit/mL (3 mL) subcutaneous pen (Humalog KwikPen U-200 Insulin) 1 sliding scale dose subcut ACHS diabetes 02/17/24 melatonin 5 mg tablet 5 mg PO QHS PRN sleep 02/17/24 metoprolol tartrate 50 mg tablet 50 mg PO BID blood pressure 02/17/24 triamcinolone acetonide 0.1 % topical ointment 1 applic topical DAILY PRN psoriasis 02/17/24 pregabalin 75 mg capsule 75 mg PO DAILY pain #30 caps 02/22/24 aspirin 81 mg tablet,delayed release 81 mg PO DAILY heart health #30 tabs 02/24/24 nitroglycerin 0.4 mg sublingual tablet 0.4 mg sublingual Q5-15M PRN chest pain #25 tabs 02/24/24 evolocumab 140 mg/mL subcutaneous pen injector (Repatha SureClick) 140 mg subcut Q2W #6 mL 02/29/24 primidone 50 mg tablet See Rx Instructions .Route .COMPLEX #60 tabs 03/07/24 insulin pump cart,auto,BT,G6/7 (Omnipod 5 G6-G7 Pods (Gen 5) subcutaneous cartridge) #45 ea 03/10/24 dicyclomine 10 mg capsule 10 mg PO BID PRN stomach 03/11/24 cholecalciferol (vitamin D3) 1,250 mcg (50,000 unit) capsule 1,250 mcg PO .monthly vit 03/24/24 lamotrigine 200 mg tablet 200 mg PO DAILY mood 30 days #0 tabs 03/26/24 mirtazapine 7.5 mg tablet 7.5 mg PO QHS mental health #30 tabs 03/26/24 Physical Exam Narrative Seen and examined. Patient is well dehydrated. Complain of pain and wanted buprenorphine patch but we do not have family. Patient is discharged home and advised to use it. Educated about the multiple neurological medications including muscle relaxant to hold for lethargy/sedation. Physical exam General: Alert, Oriented x3, Cooperative HEENT: Atraumatic, PERRLA, EOMI, Normocephalic Oral: Oral mucosa dry but better than yesterday. No Gingival or Mucosal Lesions/ Ulcerations Neck: Supple, No JVD, Negative Carotid Bruits Chest wall/Lungs: Air entry diminished in bilateral lung bases. No crepitation/rhonchi Cardiovascular: Regular rate, Regular Rhythm, Normal S1, Normal S2, No M/G/R Abdomen: No tenderness. Bowel sounds normal. LLQ ileostomy, yellowish thick, not watery fecal matter. Surgical scar present. : No dysuria. No renal angle tenderness. No suprapubic tenderness. Extremities: No edema, Capillary Refill Less than 3 Seconds Skin: No rashes, No breakdown Musculoskeletal: No Tenderness to Palpation of Joints or Extremities Neurological: Cranial nerves II-XII grossly intact, DTR 2+/4. No acute focal neurological deficit. Psych/Mental Status: Flat affect. Intermittent hallucinations at home Weight / BMI Weight Weight: 200 lb 6.403 oz Body Mass Index (BMI) 31.4 ABG / Lab / Microbiology Data 03/26/24 03:55 03/26/24 03:55 Laboratory: Laboratory Results - last 24 hr 03/26/24 03:55: WBC 6.5, RBC 4.27, Hgb 11.6 L, Hct 37.3, MCV 87.4, MCH 27.2, M CHC 31.1 L, RDW Std Deviation 51.3 H, RDW Coeff of Jan 16.2 H, Plt Count 195, MPV 11.9, Immature Gran % (Auto) 0.600, Neut % (Auto) 57.6, Lymph % (Auto) 26.5, Mobile % (Auto) 6.1, Eos % (Auto) 8.9 H, Baso % (Auto) 0.3, Absolute Neuts (auto) 3.8, Absolute Lymphs (auto) 1.73, Nucleated RBC % 0, Sodium 137, Potassium 4.9, Chloride 109 H, Carbon Dioxide 23.0, Anion Gap 5, BUN 32 H, Creatinine 1.70 H, Estim Creat Clear Calc 38.19, Est GFR (MDRD) Af Amer 39 L, Est GFR (MDRD) Non-Af 32 L, BUN/Creatinine Ratio 18.8, Glucose 209 H, Calcium 9.6 Microbiology: Microbiology 03/24/24 12:00 Stool Stool Lactoferrin - Final 03/24/24 12:00 Stool Stool Occult Blood (MAYTE) - Final Occult Blood Positive 03/24/24 12:12 Stool Enteric Bacteriology - Final 03/24/24 12:12 Stool Clostridioides difficile (PCR) - Final D/C Instructions Discharge Diet: No restrictions Weight Bearing Status: Weight bearing as tolerated Call your doctor if you observe: Fever of 101 or Higher, Coldness, Increased Pain, Numbness or Tingling, Change in Color, Inability to urinate, Inability to have a bowel movement, Shortness of breath, Dizziness, Fainting spells, Swelling in the ankles, Chest pain, Prolonged hiccupping, Increased palpitations (irregular heartbeat) and Calf discomfort DC O2, CPAP, BIPAP Needs Home O2 Discharge instructions: No When: IN 2 WEEKS Meaningful Use Info Meaningful Use Meaningful Use Diagnoses (Choose all that apply): None applicable Ischemic Stroke Statin Dosing Therapy Reference: STATIN DOSE THERAPY REFERENCE: * Patients > 75 years receive moderate or high dose statin therapy. * Patients 75 years or YOUNGER should receive HIGH intensity statin dose unless contraindicated. You will be required to document reason for non-treatment if statin daily dose does not meet guidelines. HIGH DOSE STATIN THERAPY DAILY Atorvastatin > than or = to 40 mg Rosuvastatin > than or = to 20 mg Amlodipine + Atorvastatin > than or = to 2.5/40 mg Ezetimibe + Simvastatin 10/80 mg Simvastatin 80mg Discharge Plan Admission Admit Date/Time: 03/24/24 12:09 Primary Reason for Your Visit: Acute gastroenteritis Attending Provider: Castillo Ferris Primary Care Provider: Mala Mcgrath Consulting Providers: Eloy Guan Discharge Orders/Prescriptions Prescriptions: Continued cyclobenzaprine 10 mg tablet 10 mg PO TID PRN (Reason: muscle spasm) Qty: 30 0RF Nurtec ODT 75 mg tablet,disintegrating 75 mg PO DAILY PRN (Reason: migraine headache) Qty: 16 5RF aspirin 81 mg tablet,delayed release (DR/EC) 81 mg PO DAILY Qty: 30 11RF nitroglycerin 0.4 mg tablet, sublingual 0.4 mg sublingual Q5-15M PRN (Reason: chest pain) Qty: 25 3RF Rx Instructions: do not exceed 3 doses per episode hyoscyamine sulfate 0.125 mg tablet 0.125 mg PO BID-QID PRN (Reason: dyspepsia) duloxetine 60 mg capsule,delayed release(DR/EC) 60 mg PO BID galantamine 16 mg capsule,ext rel. 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 See Rx Instructions .ROUTE .MEDSUPPLY Rx Instructions: As directed diphenoxylate-atropine [Lomotil] 2.5-0.025 mg tablet 1 tab PO TID PRN (Reason: diarrhea) buprenorphine HCl 150 mcg film 150 mcg buccal Q12H metoprolol tartrate 25 mg tablet 75 mg PO BID Rx Instructions: take 25 mg with a 50 mg tablet twice a day to = 75 mg twice a day; metoprolol tartrate 50 mg tablet 50 mg PO BID Patient Comments: take 25 mg orally with a 50 mg tablet twice a day to = 75 mg twice a day; Humalog KwikPen Insulin 200 unit/mL (3 mL) insulin pen 1 sliding scale dose subcut ACHS Patient Comments: pt has an insulin pump. she states it give continuous supply, and at meals she enters [employer], and it performs calculations and supplies insulin. triamcinolone acetonide 0.1 % ointment 1 applic topical DAILY PRN (Reason: psoriasis) albuterol sulfate 90 mcg/actuation HFA aerosol inhaler 2 puff INHALATION BID PRN (Reason: SOB) dicyclomine 10 mg Capsule 10 mg PO BID PRN (Reason: stomach) cholecalciferol (vitamin D3) 1,250 mcg (50,000 unit) capsule 1,250 mcg PO .monthly lamotrigine 200 mg tablet 200 mg PO DAILY 30 Days Qty: 0 0RF Rx Instructions: Hold for lethargy/sedation mirtazapine 7.5 mg tablet 7.5 mg PO QHS Qty: 30 1RF Rx Instructions: Hold for lethargy/sedation pantoprazole [Protonix] 40 mg tablet,delayed release (DR/EC) 40 mg PO BID Qty: 60 11RF atorvastatin 80 mg tablet 80 mg PO QHS Qty: 90 3RF Patient Comments: cholesterol (DME) Dexcom G6 Sensor Device See Rx Instructions .Route Qty: 9 1RF Rx Instructions: As directed isosorbide dinitrate 30 mg tablet 30 mg PO BID Qty: 60 11RF fluticasone propionate [Flonase Allergy Relief] 50 mcg/actuation spray,suspension 2 spray intranasal DAILY Qty: 16 3RF Rx Instructions: administer into each nostril clopidogrel 75 mg tablet 75 mg PO DAILY Qty: 28 11RF pregabalin 75 mg capsule 75 mg PO DAILY Qty: 30 1RF Repatha SureClick 140 mg/mL pen injector 140 mg subcut Q2W Qty: 6 3RF (DME) Omnipod 5 G6-G7 Pods (Gen 5) Cartridge See Rx Instructions .Route Qty: 45 1RF Rx Instructions: change every 48 hours Held melatonin 5 mg tablet 5 mg PO QHS PRN (Reason: sleep) Hold Instructions: Hold for lethargy/sedation Referrals / Follow Up: Mala Mcgrath MD [Primary Care Provider] - Friend,DO Aj [Med Staff - Active Staff] - Within 1 Month (For short-bowel syndrome. Call office on 03/27/2024) Disposition Disposition (needs filled in before D/C Order can be placed): Home, Self Care Charges/Coding Visit Charges Inpatient E&M: 45901 Disch Hosp >30min
[2024-03-26 11:38] VITALS: BP 150/86; PULSE 111; RESP 16; TEMP 36.6; O2SAT 95
[2024-03-26 11:54] VITALS: O2SAT 93; O2SAT 95
== END 2024-03-26 12:18 | disposition home or self-care (01) | DRG 682 ==
LOC: ED 12:11 → MS3 12:58
PROVIDERS: Admitting Provider Internal Medicine; Emergency Provider Emergency Medicine; PCP Internal Medicine; Visit Provider Internal Medicine
DX: N17.9 Acute kidney failure, unspecified (principal); G92.8 Other toxic encephalopathy; G93.41 Metabolic encephalopathy; E87.1 Hypo-osmolality and hyponatremia; I13.0 Hypertensive heart and chronic kidney disease with heart failure and stage 1 through stage 4 chronic kidney disease, or unspecified chronic kidney disease; F03.94 Unspecified dementia, unspecified severity, with anxiety; K51.90 Ulcerative colitis, unspecified, without complications; I50.32 Chronic diastolic (congestive) heart failure; F03.93 Unspecified dementia, unspecified severity, with mood disturbance; K90.829 Short bowel syndrome, unspecified; I27.21 Secondary pulmonary arterial hypertension; E86.0 Dehydration; D47.2 Monoclonal gammopathy; E11.22 Type 2 diabetes mellitus with diabetic chronic kidney disease; J44.9 Chronic obstructive pulmonary disease, unspecified; N18.4 Chronic kidney disease, stage 4 (severe); M06.9 Rheumatoid arthritis, unspecified; K76.0 Fatty (change of) liver, not elsewhere classified; Z93.2 Ileostomy status; E11.42 Type 2 diabetes mellitus with diabetic polyneuropathy; K21.9 Gastro-esophageal reflux disease without esophagitis; K31.84 Gastroparesis; I25.10 Atherosclerotic heart disease of native coronary artery without angina pectoris; E11.43 Type 2 diabetes mellitus with diabetic autonomic (poly)neuropathy; E55.9 Vitamin D deficiency, unspecified; G47.33 Obstructive sleep apnea (adult) (pediatric); L40.9 Psoriasis, unspecified; Z79.4 Long term (current) use of insulin; E87.5 Hyperkalemia; E86.1 Hypovolemia; E78.00 Pure hypercholesterolemia, unspecified; T43.025A Adverse effect of tetracyclic antidepressants, initial encounter; T48.1X5A Adverse effect of skeletal muscle relaxants [neuromuscular blocking agents], initial encounter; A08.4 Viral intestinal infection, unspecified; G89.4 Chronic pain syndrome; Z95.1 Presence of aortocoronary bypass graft; Z88.1 Allergy status to other antibiotic agents; Z88.2 Allergy status to sulfonamides; Z88.0 Allergy status to penicillin; Z96.41 Presence of insulin pump (external) (internal); Z90.49 Acquired absence of other specified parts of digestive tract; Z87.891 Personal history of nicotine dependence; Z79.899 Other long term (current) drug therapy; Z79.02 Long term (current) use of antithrombotics/antiplatelets; Z79.82 Long term (current) use of aspirin; Z96.652 Presence of left artificial knee joint
CPT/HCPCS: 36415; 80048; 82274; 83630; 83735; 84100; 85025; 87493; 87506; 94668; 97161; 97166; 97530; 97535; 99252; 99283; A4216; G0463; J2405

== ENCOUNTER 2024-04-03 10:54 | Outpatient (CLI) | payer MEDICARE, MEDICAID, SELFPAY ==
[2023-10-27 12:02] VITALS: BMI 30.9
[2024-04-03] MEDS: Lactated Ringers 1,000 ML 999 ML IV (11:04)
[2024-04-03 11:07] VITALS: BP 174/59; PULSE 71; RESP 16; TEMP 35.9; O2SAT 98; BMI 31.6
[2024-04-03 12:12] VITALS: BP 162/78; PULSE 72
== END 2024-04-03 23:59 | disposition home or self-care (01) ==
LOC: MEDOUTP 10:55
PROVIDERS: PCP Internal Medicine; Referring Provider Student in an Organized Health Care Education/Training Program; Visit Provider Student in an Organized Health Care Education/Training Program
DX: E86.0 Dehydration (principal); R19.8 Other specified symptoms and signs involving the digestive system and abdomen
CPT/HCPCS: 96360

== ENCOUNTER 2024-04-05 12:17 | Outpatient (CLI) | payer MEDICARE, MEDICAID, SELFPAY ==
[2023-10-27 12:02] VITALS: BMI 30.9
[2024-04-05] MEDS: Lactated Ringers 1,000 ML 999 ML IV (12:25)
[2024-04-05 12:27] VITALS: BP 175/65; PULSE 70; RESP 16; O2SAT 97; BMI 31.6
[2024-04-05] MEDS: 0.9% NaCl Peripheral Flush Adult/Peds IV ×3 (13:33→13:35)
[2024-04-05 13:48] VITALS: BP 201/76; PULSE 73; RESP 16; O2SAT 97
[2024-04-05 14:08] LABS: Absolute Lymphocyte Count 2.71 X10^3/uL (0.83-4.51); Absolute Neutrophil Count 4.2 X10^3/uL (2.0-7.7); Basophil# 0.14 X10^3/uL; Basophil% 1.5 % (0-1); Eosinophil# 1.39 X10^3/uL; Hematocrit 33.4 % (37-47); Hemoglobin 10.9 g/dL (12.0-15.0); Lymphocyte # 2.71 X10^3/ul (0.83-4.51); Lymphocyte % 29.3 % (19-41); Mean Corp Hgb Conc 32.6 g/dL (32-36); Mean Corpuscular Hgb 28.8 pg (27.0-32.0); Mean Corpuscular Volume 88.4 fL (81-99); Mean Platelet Vol. 11.5 fl (6.2-12.0); Monocyte# 0.59 X10^3/uL; Monocyte% 6.4 % (0-10); NRBC Flagged by Analyzer 0 % (0-5); Neutrophil # 4.16 X10^3/uL (2.7-7.7); Neutrophil % 44.9 % (47-70); Platelet Count 198 K/mm3 (150-450); RBC Distribution Width CV 16.7 % (11.6-14.6); RBC Distribution Width SD 53.7 fl (35.1-43.9); RET-HE 32.7 pg (30-35); Red Blood Count 3.78 M/mm3 (4.2-5.4); Reticulocyte Count 2.89 % (0.5-1.5); White Blood Count 9.3 K/mm3 (4.4-11.0)
[2024-04-05 14:19] LABS: Protein, Urine (Random) 94.2 mg/dL (<11.9); Protein:Creat Ratio 889 mg/g CRE (0-200)
[2024-04-05 14:29] LABS: Anion Gap 7 (5-15); BUN 27 mg/dL (7-18); BUN/Creat Ratio 16.3 RATIO (10-20); Chloride 108 mmol/L (98-107); Creatinine, Serum 1.66 mg/dL (0.55-1.02); EST Glomerular Filtration Rate 33 mL/min (>60); Est Glom Filt Rate - Afr Amer 40 mL/min (>60); Estimated Creatinine Clearance 39.26 ml/min; Glucose 144 mg/dL (74-106); PTHIN 57.4 pg/mL (18.4-80.1); Potassium 4.8 mmol/L (3.5-5.1); Sodium Level 140 mmol/L (136-145)
[2024-04-05 14:33] LABS: Vitamin B12 655 pg/mL (211-911)
[2024-04-05 14:39] LABS: Vitamin D,25 Hydroxy 59.3 ng/mL
[2024-04-05 15:11] LABS: Albumin, Serum 2.8 g/dL (3.2-5.0); BUN 27 mg/dL (7-18); BUN/Creat Ratio 16.6 RATIO (10-20); Chloride 108 mmol/L (98-107); Cholesterol 169 mg/dL (200); Creatinine, Serum 1.63 mg/dL (0.55-1.02); EST Glomerular Filtration Rate 34 mL/min (>60); Est Glom Filt Rate - Afr Amer 41 mL/min (>60); Estimated Creatinine Clearance 39.99 ml/min; Ferritin 44 ng/mL (8-252); Glucose 138 mg/dL (74-106); High Density Lipoprotein 53 mg/dL; Iron 70 ug/dL (50-170); Iron Binding Capacity,Total 330 ug/dL (250-450); Phosphorus 2.9 mg/dL (2.5-4.9); Potassium 4.8 mmol/L (3.5-5.1); Sodium Level 140 mmol/L (136-145); Triglycerides 410 mg/dL
[2024-04-07 09:07] LABS: Transferrin 288 mg/dL (192-364)
[2024-04-10 03:06] LABS: Lamotrigine (Lamictal) Level 6.3 ug/mL (2.0-20.0)
== END 2024-04-05 23:59 | disposition home or self-care (01) ==
LOC: MEDOUTP 12:18
PROVIDERS: Internal Medicine Gastroenterology; Nurse Practitioner Family; Psychiatry & Neurology Neurology; PCP Internal Medicine; Referring Provider Student in an Organized Health Care Education/Training Program; Visit Provider Student in an Organized Health Care Education/Training Program
DX: E86.0 Dehydration (principal); N18.32 Chronic kidney disease, stage 3b; R19.8 Other specified symptoms and signs involving the digestive system and abdomen
CPT/HCPCS: 96360; 80048; 80061; 80069; 82140; 82306; 82542; 82570; 82607; 82728; 82746; 83540; 83550; 83970; 84156; 84466; 85025; 85045; A4216

== ENCOUNTER 2024-04-10 11:02 | Outpatient (CLI) | payer MEDICARE, MEDICAID, SELFPAY ==
[2023-10-27 12:02] VITALS: BMI 30.9
[2024-04-10] MEDS: Lactated Ringers 1,000 ML 999 ML IV (11:27)
[2024-04-10 11:29] VITALS: BP 155/64; PULSE 69; RESP 16; O2SAT 97
[2024-04-10] MEDS: 0.9% NaCl Peripheral Flush Adult/Peds IV (12:39)
[2024-04-10 12:40] VITALS: BP 140/52; PULSE 80; RESP 16; O2SAT 96
== END 2024-04-10 23:59 | disposition home or self-care (01) ==
LOC: MEDOUTP 11:02
PROVIDERS: PCP Internal Medicine; Referring Provider Student in an Organized Health Care Education/Training Program; Visit Provider Student in an Organized Health Care Education/Training Program
DX: E86.0 Dehydration (principal); R19.8 Other specified symptoms and signs involving the digestive system and abdomen
CPT/HCPCS: 96360; A4216

== ENCOUNTER 2024-04-12 12:43 | Outpatient (CLI) | payer MEDICARE, MEDICAID, SELFPAY ==
[2023-10-27 12:02] VITALS: BMI 30.9
[2024-04-12] MEDS: Lactated Ringers 1,000 ML 999 ML IV (13:05)
[2024-04-12 13:08] VITALS: BP 160/73; PULSE 69; RESP 14; TEMP 36.2; O2SAT 96
[2024-04-12 14:24] VITALS: BP 174/62; PULSE 73; RESP 16; TEMP 36.2; O2SAT 93
== END 2024-04-12 23:59 | disposition home or self-care (01) ==
LOC: MEDOUTP 12:43
PROVIDERS: PCP Internal Medicine; Referring Provider Student in an Organized Health Care Education/Training Program; Visit Provider Student in an Organized Health Care Education/Training Program
DX: E86.0 Dehydration (principal); R19.8 Other specified symptoms and signs involving the digestive system and abdomen
CPT/HCPCS: 96360; A4216

== ENCOUNTER 2024-04-17 12:16 | Outpatient (CLI) | payer MEDICARE, MEDICAID, SELFPAY ==
[2023-10-27 12:02] VITALS: BMI 30.9
[2024-04-17] MEDS: Lactated Ringers 1,000 ML 999 ML IV (12:26)
[2024-04-17 12:28] VITALS: BP 181/80; PULSE 71; RESP 16; TEMP 36.3; O2SAT 97
[2024-04-17] MEDS: 0.9% NaCl Peripheral Flush Adult/Peds IV (13:32)
[2024-04-17 13:35] VITALS: BP 175/74; PULSE 71; RESP 16
== END 2024-04-17 23:59 | disposition home or self-care (01) ==
LOC: MEDOUTP 12:17
PROVIDERS: PCP Internal Medicine; Referring Provider Student in an Organized Health Care Education/Training Program; Visit Provider Student in an Organized Health Care Education/Training Program
DX: E86.0 Dehydration (principal); R19.8 Other specified symptoms and signs involving the digestive system and abdomen
CPT/HCPCS: 96360; A4216

== ENCOUNTER 2024-04-21 08:50 | Outpatient (CLI) | payer MEDICARE, MEDICAID, SELFPAY ==
[2023-10-27 12:02] VITALS: BMI 30.9
[2024-04-21 09:00] VITALS: BP 169/68; PULSE 67; RESP 16; TEMP 36.6; O2SAT 97; BMI 31.6
[2024-04-21] MEDS: Lactated Ringers 1,000 ML 999 ML IV (09:03)
[2024-04-21] MEDS: 0.9% NaCl Peripheral Flush Adult/Peds IV (10:08)
[2024-04-21 10:12] VITALS: BP 170/67; PULSE 74; RESP 16; TEMP 36.6; O2SAT 96
== END 2024-04-21 23:59 | disposition home or self-care (01) ==
LOC: MEDOUTP 08:50
PROVIDERS: PCP Internal Medicine; Referring Provider Student in an Organized Health Care Education/Training Program; Visit Provider Student in an Organized Health Care Education/Training Program
DX: E86.0 Dehydration (principal); R19.8 Other specified symptoms and signs involving the digestive system and abdomen
CPT/HCPCS: 96360; A4216

== ENCOUNTER 2024-04-24 11:15 | Outpatient (CLI) | payer MEDICARE, MEDICAID, SELFPAY ==
[2023-10-27 12:02] VITALS: BMI 30.9
[2024-04-24] MEDS: Lactated Ringers 1,000 ML 999 ML IV (11:39)
[2024-04-24 11:44] VITALS: BP 152/72; PULSE 72; RESP 16; TEMP 36.6; O2SAT 94
[2024-04-24] MEDS: 0.9% NaCl Peripheral Flush Adult/Peds IV (12:48)
[2024-04-24 12:51] VITALS: BP 164/74; PULSE 80; RESP 16; TEMP 36.4; O2SAT 95
== END 2024-04-24 23:59 | disposition home or self-care (01) ==
LOC: MEDOUTP 11:15
PROVIDERS: PCP Internal Medicine; Referring Provider Student in an Organized Health Care Education/Training Program; Visit Provider Student in an Organized Health Care Education/Training Program
DX: E86.0 Dehydration (principal); R19.8 Other specified symptoms and signs involving the digestive system and abdomen
CPT/HCPCS: 96360; A4216

== ENCOUNTER 2024-04-26 11:47 | Outpatient (CLI) | payer MEDICARE, MEDICAID, SELFPAY ==
[2023-10-27 12:02] VITALS: BMI 30.9
[2024-04-26] MEDS: Lactated Ringers 1,000 ML 999 ML IV (12:11)
[2024-04-26 12:13] VITALS: BP 170/71; PULSE 75; RESP 16; TEMP 36.2; O2SAT 94
[2024-04-26] MEDS: 0.9% NaCl Peripheral Flush Adult/Peds IV (13:19)
[2024-04-26 13:21] VITALS: BP 126/72; PULSE 72
== END 2024-04-26 23:59 | disposition home or self-care (01) ==
LOC: MEDOUTP 11:47
PROVIDERS: PCP Internal Medicine; Referring Provider Student in an Organized Health Care Education/Training Program; Visit Provider Student in an Organized Health Care Education/Training Program
DX: E86.0 Dehydration (principal); R19.8 Other specified symptoms and signs involving the digestive system and abdomen
CPT/HCPCS: 96360; A4216

== ENCOUNTER 2024-05-01 11:46 | Outpatient (CLI) | payer MEDICARE, MEDICAID, SELFPAY ==
[2023-10-27 12:02] VITALS: BMI 30.9
[2024-05-01 11:58] VITALS: BP 182/83; PULSE 77; RESP 16; TEMP 36.6; O2SAT 96
[2024-05-01] MEDS: Lactated Ringers 1,000 ML 999 ML IV (12:02)
[2024-05-01] MEDS: 0.9% NaCl Peripheral Flush Adult/Peds IV (13:07)
[2024-05-01 13:08] VITALS: BP 180/72; PULSE 79; RESP 16
== END 2024-05-01 23:59 | disposition home or self-care (01) ==
LOC: MEDOUTP 11:46
PROVIDERS: PCP Internal Medicine; Referring Provider Student in an Organized Health Care Education/Training Program; Visit Provider Student in an Organized Health Care Education/Training Program
DX: E86.0 Dehydration (principal); K94.03 Colostomy malfunction
CPT/HCPCS: 96360; A4216

== ENCOUNTER 2024-05-03 11:32 | Outpatient (CLI) | payer MEDICARE, MEDICAID, SELFPAY ==
[2023-10-27 12:02] VITALS: BMI 30.9
[2024-05-03] MEDS: Lactated Ringers 1,000 ML 1000 ML IV (11:43)
[2024-05-03 11:46] VITALS: BP 163/78; PULSE 72; RESP 16; TEMP 36.7; O2SAT 97; BMI 32.1
[2024-05-03] MEDS: 0.9% NaCl Peripheral Flush Adult/Peds IV (12:53)
[2024-05-03 12:54] VITALS: BP 160/67; PULSE 80; RESP 16
== END 2024-05-03 23:59 | disposition home or self-care (01) ==
LOC: MEDOUTP 11:32
PROVIDERS: PCP Internal Medicine; Referring Provider Student in an Organized Health Care Education/Training Program; Visit Provider Student in an Organized Health Care Education/Training Program
DX: E86.0 Dehydration (principal); R19.8 Other specified symptoms and signs involving the digestive system and abdomen
CPT/HCPCS: 96360; A4216

== ENCOUNTER 2024-05-08 11:36 | Outpatient (CLI) | payer MEDICARE, MEDICAID, SELFPAY ==
[2023-10-27 12:02] VITALS: BMI 30.9
[2024-05-08] MEDS: Lactated Ringers 1,000 ML 999 ML IV (11:51)
[2024-05-08 11:52] VITALS: BP 172/73; PULSE 64; RESP 16; TEMP 36.3; O2SAT 98
[2024-05-08] MEDS: 0.9% NaCl Peripheral Flush Adult/Peds IV (12:54)
[2024-05-08 12:56] VITALS: RESP 16
== END 2024-05-08 23:59 | disposition home or self-care (01) ==
LOC: MEDOUTP 11:36
PROVIDERS: PCP Internal Medicine; Referring Provider Student in an Organized Health Care Education/Training Program; Visit Provider Student in an Organized Health Care Education/Training Program
DX: E86.0 Dehydration (principal); R19.8 Other specified symptoms and signs involving the digestive system and abdomen
CPT/HCPCS: 96365; A4216

== ENCOUNTER 2024-05-10 11:47 | Outpatient (CLI) | payer MEDICARE, MEDICAID, SELFPAY ==
[2023-10-27 12:02] VITALS: BMI 30.9
[2024-05-10] MEDS: Lactated Ringers 1,000 ML 999 ML IV (12:03)
[2024-05-10 12:04] VITALS: BP 176/73; PULSE 74; RESP 16; TEMP 36.5; O2SAT 97
[2024-05-10] MEDS: 0.9% NaCl Peripheral Flush Adult/Peds IV (13:15)
== END 2024-05-10 23:59 | disposition home or self-care (01) ==
LOC: MEDOUTP 11:47
PROVIDERS: PCP Internal Medicine; Referring Provider Student in an Organized Health Care Education/Training Program; Visit Provider Student in an Organized Health Care Education/Training Program
DX: E86.0 Dehydration (principal); R19.8 Other specified symptoms and signs involving the digestive system and abdomen
CPT/HCPCS: 96360; A4216

== ENCOUNTER 2024-05-15 11:46 | Outpatient (CLI) | payer MEDICARE, MEDICAID, SELFPAY ==
[2023-10-27 12:02] VITALS: BMI 30.9
[2024-05-15] MEDS: Lactated Ringers 1,000 ML 1000 ML IV (11:59)
[2024-05-15 12:00] VITALS: BP 194/73; PULSE 76; RESP 16; TEMP 36.4; O2SAT 96; BMI 32.5
[2024-05-15] MEDS: 0.9% NaCl Peripheral Flush Adult/Peds IV (13:03)
[2024-05-15 13:06] VITALS: BP 191/72; PULSE 79
== END 2024-05-15 23:59 | disposition home or self-care (01) ==
LOC: MEDOUTP 11:47
PROVIDERS: PCP Internal Medicine; Referring Provider Student in an Organized Health Care Education/Training Program; Visit Provider Student in an Organized Health Care Education/Training Program
DX: E86.0 Dehydration (principal); R19.8 Other specified symptoms and signs involving the digestive system and abdomen
CPT/HCPCS: 96360; A4216

== ENCOUNTER 2024-05-22 11:01 | Outpatient (CLI) | payer MEDICARE, MEDICAID, SELFPAY ==
[2023-10-27 12:02] VITALS: BMI 30.9
[2024-05-22] MEDS: Lactated Ringers 1,000 ML 999 ML IV (11:16)
[2024-05-22 11:29] VITALS: BP 146/59; PULSE 73; RESP 16; TEMP 35.9; O2SAT 98
[2024-05-22 12:31] VITALS: BP 159/58; PULSE 80; RESP 16; TEMP 36.3; O2SAT 99
[2024-05-22] MEDS: 0.9% NaCl Peripheral Flush Adult IV (12:31)
== END 2024-05-22 23:59 | disposition home or self-care (01) ==
LOC: MEDOUTP 11:01
PROVIDERS: PCP Internal Medicine; Referring Provider Student in an Organized Health Care Education/Training Program; Visit Provider Student in an Organized Health Care Education/Training Program
DX: E86.0 Dehydration (principal); R19.5 Other fecal abnormalities
CPT/HCPCS: 96360; A4216

== ENCOUNTER → 2024-05-23 | Outpatient (CLI) | payer MEDICARE, MEDICAID, SELFPAY ==
[2023-10-27 12:02] VITALS: BMI 30.9
--- NOTE | 2024-05-23 09:58 | CDU_ITS ---
Reason For Study Reason For Study: Bilateral Carotid Stenosis Rt. Velocities/BP Lt. Velocities/BP Prox CCA 138.1/13.9 cm/sec. Prox CCA 119.9/14.5 cm/sec. Mid CCA 80.9/12.7 cm/sec. Mid CCA 85.5/14.2 cm/sec. Dist CCA 47.8/16.6 cm/sec. Dist CCA 97.7/28.7 cm/sec. Prox ICA 528.1/113.7 cm/sec. Prox ICA 247.6/47.2 cm/sec. Mid ICA 67.3/29.0 cm/sec. Mid ICA 128.9/26.7 cm/sec. Dist ICA 60.1/23.2 cm/sec. Dist ICA 79.3/27.8 cm/sec. Rt. ICA/CCA = 6.5. Lt. ICA/CCA = 2.9. Prox ECA 363.1/25.5 cm/sec. Prox ECA 174.3/12.3 cm/sec. Rt. Vert. 59.1/15.7 cm/sec. Lt. Vert. 79.8/21.5 cm/sec. Right Extracranial There is heterogeneous, irregular atherosclerotic plaque noted in the right common carotid artery. There is heterogeneous, irregular atherosclerotic plaque noted in the right internal carotid artery. There is heterogeneous, irregular atherosclerotic plaque noted in the right external carotid artery. Antegrade flow is noted in the right vertebral artery. Left Extracranial There is heterogeneous, irregular atherosclerotic plaque noted in the left common carotid artery. There is heterogeneous, irregular atherosclerotic plaque noted in the left internal carotid artery. There is heterogeneous, irregular atherosclerotic plaque noted in the left external carotid artery. Antegrade flow is noted in the left vertebral artery. Procedure Carotid Duplex 09100. This is a Carotid Duplex examination using B-mode, color flow and specral Doppler. The exam was diagnostic. Exam performed in department. Preliminary report given to Jennifer JONES. VL/Carotid Duplex Ultrasound Interpretation Summary Severe (>70%) stenosis right extracranial internal carotid. Severe (>70%) stenosis left extracranial internal carotid. Patent and antegrade vertebrals bilaterally. Ordering Physician: Shiva Spencer Referring Physician: Mala Mcgrath Performed By: Alex Padilla RVT
== END | disposition home or self-care (01) ==
LOC: CVS 09:55
PROVIDERS: PCP Internal Medicine; Referring Provider Surgery Trauma Surgery; Visit Provider Surgery Trauma Surgery
DX: I65.21 Occlusion and stenosis of right carotid artery (principal)
CPT/HCPCS: 93880

== ENCOUNTER 2024-05-24 11:13 | Outpatient (CLI) | payer MEDICARE, MEDICAID, SELFPAY ==
[2023-10-27 12:02] VITALS: BMI 30.9
[2024-05-24] MEDS: Lactated Ringers 1,000 ML 999 ML IV (11:34)
[2024-05-24 11:35] VITALS: BP 154/65; PULSE 70; RESP 16; TEMP 36.2; O2SAT 96
[2024-05-24] MEDS: 0.9% NaCl Peripheral Flush Adult IV (12:40)
[2024-05-24 12:41] VITALS: BP 172/64; PULSE 74; RESP 16
[2024-05-25 07:07] LABS: Rubeola IgG Ab > 300.0 AU/mL (Immune >16.4)
== END 2024-05-24 23:59 | disposition home or self-care (01) ==
LOC: MEDOUTP 11:13
PROVIDERS: PCP Internal Medicine; Referring Provider Student in an Organized Health Care Education/Training Program; Visit Provider Student in an Organized Health Care Education/Training Program
DX: E86.0 Dehydration (principal); R19.8 Other specified symptoms and signs involving the digestive system and abdomen
CPT/HCPCS: 96360; 36415; 86765; A4216

== ENCOUNTER 2024-05-29 11:49 | Outpatient (CLI) | payer MEDICARE, MEDICAID, SELFPAY ==
[2023-10-27 12:02] VITALS: BMI 30.9
[2024-05-29] MEDS: Lactated Ringers 1,000 ML 1000 ML IV (12:18)
[2024-05-29 12:22] VITALS: BP 155/64; PULSE 72; RESP 16; TEMP 36.3; O2SAT 96
[2024-05-29] MEDS: 0.9% NaCl Peripheral Flush Adult IV (13:32)
[2024-05-29 13:33] VITALS: BP 161/63; PULSE 79; RESP 16; TEMP 36.4; O2SAT 97
== END 2024-05-29 23:59 | disposition home or self-care (01) ==
LOC: MEDOUTP 11:49
PROVIDERS: PCP Internal Medicine; Referring Provider Student in an Organized Health Care Education/Training Program; Visit Provider Student in an Organized Health Care Education/Training Program
DX: E86.0 Dehydration (principal); R19.8 Other specified symptoms and signs involving the digestive system and abdomen
CPT/HCPCS: 96360; A4216

== ENCOUNTER 2024-05-31 10:54 | Outpatient (CLI) | payer MEDICARE, MEDICAID, SELFPAY ==
[2023-10-27 12:02] VITALS: BMI 30.9
[2024-05-31 11:03] VITALS: BP 169/69; PULSE 76; RESP 16; TEMP 36.1; O2SAT 99
[2024-05-31] MEDS: Lactated Ringers 1,000 ML 999 ML IV (11:06)
[2024-05-31] MEDS: 0.9% NaCl Peripheral Flush Adult IV (12:19)
== END 2024-05-31 23:59 | disposition home or self-care (01) ==
LOC: MEDOUTP 10:54
PROVIDERS: PCP Internal Medicine; Referring Provider Student in an Organized Health Care Education/Training Program; Visit Provider Student in an Organized Health Care Education/Training Program
DX: E86.0 Dehydration (principal); R19.8 Other specified symptoms and signs involving the digestive system and abdomen
CPT/HCPCS: 96360; A4216

== ENCOUNTER → 2024-06-03 | Outpatient (CLI) | payer MEDICARE, MEDICAID, SELFPAY ==
[2024-06-01 10:39] VITALS: BMI 30.9
--- NOTE | 2024-06-03 08:56 | US_ITS ---
PROCEDURE: ABD LIMITED W/ ELASTOGRAPHY 06/03/2024 REASON FOR EXAM: MCDONALD TECHNIQUE: Real time grayscale and color doppler ultrasound. COMPARISON: 04/13/2023 FINDINGS: The liver is enlarged. There is normal hepatopetal flow through the portal vein. Patient is post cholecystectomy. Pancreas is unremarkable. No pancreatic ductal dilatation. Common bile duct diameter is 4.7 mm. Mid KPA is 11.5. IQR: 3.1 KPA. Mediastinum: 11.5 KPA IQR/medium: 26.5% US/ABD Limited w/ Elastography IMPRESSION: Hepatomegaly and liver fibrosis. Metavir stage: F2-F3 Reading [facility]
== END | disposition home or self-care (01) ==
LOC: US 08:55
PROVIDERS: PCP Internal Medicine; Referring Provider Internal Medicine Gastroenterology; Visit Provider Internal Medicine Gastroenterology
DX: K76.0 Fatty (change of) liver, not elsewhere classified (principal)
CPT/HCPCS: 76705; 76981

== ENCOUNTER 2024-06-05 09:54 | Outpatient (CLI) | payer MEDICARE, MEDICAID, SELFPAY ==
[2024-06-01 10:39] VITALS: BMI 30.9
[2024-06-05] MEDS: Lactated Ringers 1,000 ML 999 ML IV (10:08)
[2024-06-05 10:10] VITALS: BP 166/62; PULSE 75; RESP 14; TEMP 36.6; O2SAT 96; BMI 33.0
[2024-06-05] MEDS: 0.9% NaCl Peripheral Flush Adult IV (11:15)
[2024-06-05 11:18] VITALS: BP 157/62; PULSE 83; RESP 16; TEMP 36.6; O2SAT 96
== END 2024-06-05 23:59 | disposition home or self-care (01) ==
LOC: MEDOUTP 09:54
PROVIDERS: PCP Internal Medicine; Referring Provider Student in an Organized Health Care Education/Training Program; Visit Provider Student in an Organized Health Care Education/Training Program
DX: E86.0 Dehydration (principal); R19.5 Other fecal abnormalities
CPT/HCPCS: 96360; A4216

== ENCOUNTER 2024-06-12 09:47 | Outpatient (CLI) | payer MEDICARE, MEDICAID, SELFPAY ==
[2024-06-01 10:39] VITALS: BMI 30.9
[2024-06-12] MEDS: Lactated Ringers 1,000 ML 999 ML IV (10:01)
[2024-06-12 10:07] VITALS: BP 168/86; PULSE 84; RESP 16; TEMP 36.2; O2SAT 98
[2024-06-12] MEDS: 0.9% NaCl Peripheral Flush Adult IV (11:14)
[2024-06-12 11:16] VITALS: BP 157/64; PULSE 84; RESP 16; TEMP 36.5; O2SAT 96
== END 2024-06-12 23:59 | disposition home or self-care (01) ==
LOC: MEDOUTP 09:47
PROVIDERS: PCP Internal Medicine; Referring Provider Student in an Organized Health Care Education/Training Program; Visit Provider Student in an Organized Health Care Education/Training Program
DX: E86.0 Dehydration (principal); R19.8 Other specified symptoms and signs involving the digestive system and abdomen
CPT/HCPCS: 96360; A4216

== ENCOUNTER 2024-06-14 09:44 | Outpatient (CLI) | payer MEDICARE, MEDICAID, SELFPAY ==
[2024-06-01 10:39] VITALS: BMI 30.9
[2024-06-14 09:56] VITALS: BP 173/78; PULSE 71; RESP 16; TEMP 36.2; O2SAT 98; BMI 32.8
[2024-06-14] MEDS: Lactated Ringers 1,000 ML 1000 ML IV (09:57)
[2024-06-14] MEDS: 0.9% NaCl Peripheral Flush Adult IV (11:07)
[2024-06-14 11:09] VITALS: BP 170/71; PULSE 72; RESP 16; TEMP 36.2; O2SAT 97
== END 2024-06-14 23:59 | disposition home or self-care (01) ==
LOC: MEDOUTP 09:45
PROVIDERS: PCP Internal Medicine; Referring Provider Student in an Organized Health Care Education/Training Program; Visit Provider Student in an Organized Health Care Education/Training Program
DX: E86.0 Dehydration (principal); R19.8 Other specified symptoms and signs involving the digestive system and abdomen
CPT/HCPCS: 96360; A4216

== ENCOUNTER 2024-06-21 11:41 | Outpatient (CLI) | payer MEDICARE, MEDICAID, SELFPAY ==
[2024-06-19 12:23] VITALS: BMI 30.9
[2024-06-21 11:47] VITALS: BP 154/78; PULSE 71; RESP 16; TEMP 35.9; O2SAT 97
[2024-06-21] MEDS: 0.9% NaCl Peripheral Flush Adult IV ×2 (12:13→13:30)
[2024-06-21] MEDS: Lactated Ringers 1,000 ML 999 ML IV (12:18)
[2024-06-21 13:32] VITALS: BP 148/66; PULSE 73
== END 2024-06-21 23:59 | disposition home or self-care (01) ==
LOC: MEDOUTP 11:41
PROVIDERS: PCP Internal Medicine; Referring Provider Student in an Organized Health Care Education/Training Program; Visit Provider Student in an Organized Health Care Education/Training Program
DX: E86.0 Dehydration (principal); R19.8 Other specified symptoms and signs involving the digestive system and abdomen
CPT/HCPCS: 96360; 36591; A4216

== ENCOUNTER 2024-06-26 11:45 | Outpatient (CLI) | payer MEDICARE, MEDICAID, SELFPAY ==
[2024-06-19 12:23] VITALS: BMI 30.9
[2024-06-26] MEDS: Lactated Ringers 1,000 ML 999 ML IV (11:55)
[2024-06-26 11:56] VITALS: BP 149/64; PULSE 70; RESP 16; TEMP 36.4; O2SAT 96
[2024-06-26] MEDS: 0.9% NaCl Peripheral Flush Adult IV (13:00)
[2024-06-26 13:02] VITALS: BP 148/64; RESP 16
== END 2024-06-26 23:59 | disposition home or self-care (01) ==
LOC: MEDOUTP 11:45
PROVIDERS: PCP Internal Medicine; Referring Provider Student in an Organized Health Care Education/Training Program; Visit Provider Student in an Organized Health Care Education/Training Program
DX: E86.0 Dehydration (principal); R19.8 Other specified symptoms and signs involving the digestive system and abdomen
CPT/HCPCS: 96360; A4216

== ENCOUNTER 2024-06-28 11:35 | Outpatient (CLI) | payer MEDICARE, MEDICAID, SELFPAY ==
[2024-06-27 09:22] VITALS: BMI 30.9
[2024-06-28] MEDS: Lactated Ringers 1,000 ML 999 ML IV (11:52)
[2024-06-28 11:54] VITALS: BP 151/70; PULSE 70; RESP 16; O2SAT 96; BMI 33.0
[2024-06-28] MEDS: 0.9% NaCl Peripheral Flush Adult IV (13:02)
[2024-06-28 13:07] VITALS: BP 147/73; PULSE 72; RESP 16
== END 2024-06-28 23:59 | disposition home or self-care (01) ==
LOC: MEDOUTP 11:36
PROVIDERS: PCP Internal Medicine; Referring Provider Student in an Organized Health Care Education/Training Program; Visit Provider Student in an Organized Health Care Education/Training Program
DX: E86.0 Dehydration (principal); R19.8 Other specified symptoms and signs involving the digestive system and abdomen
CPT/HCPCS: 96360; A4216

== ENCOUNTER 2024-06-30 15:14 | Emergency (ER) | payer MEDICARE, MEDICAID, SELFPAY ==
[2024-06-27 09:22] VITALS: BMI 30.9
[2024-06-30 15:15] VITALS: BP 158/85; PULSE 94; RESP 20; TEMP 36.8; O2SAT 95; BMI 33.7
--- NOTE | 2024-06-30 15:27 | ED.VIS.FALL ---
HPI HPI - Fall History of Present Illness Chief Complaint: Fall Narrative Narrative: 63-year-old female past medical history of chronic right knee problems and frequent falls states that a day and a half ago she had a fall and fell over her laundry basket. She sustained injuries to her right 3rd and 4th fingers with known swelling and thinks they are fractured. She also states that her left thumb hurts more with movement. She may have fallen onto her right knee and now has problems ambulating and with flexion extension. Regarding her knee pain, she sees Dr. Isael Urena and states that she had meniscal repair, and twice over the last few months has had to have fluid drained and steroid injection. She is supposed to be getting an MRI at the end of July before he will see her again regarding her right knee, however he is unaware of her recent fall onto her right knee. She denies loss of consciousness or hitting of her head after her injury 2 days ago. She is left-hand dominant. She is here mainly because of the swelling of her fingers on her right hand, pain in her right knee, and left thumb pain. [facility] Medical History Health care maintenance Immunity status testing Chronic kidney disease, stage 3b History of CAD (coronary artery disease) History of chronic kidney disease History of diabetes mellitus High output ileostomy CKD (chronic kidney disease), stage IV CAD (coronary artery disease) Hypertension MGUS (monoclonal gammopathy of unknown significance) Dehydration Falls Hypoxic respiratory failure Hypercapnic respiratory failure Fatigue Low back pain Abnormality of gait and mobility Polyneuropathy Insulin pump titration Presence of insulin pump Essential tremor Dementia History of stress test Fungal dermatitis Herpes genitalia Encounter for insertion of venous access port Post-menopausal Rash Back pain Arthritis Ambulates with cane History of renal disease High cholesterol Dietary restriction History of pain when walking History of echocardiogram Chronic kidney disease (CKD) stage G4/A2, severely decreased glomerular filtration rate (GFR) between 15-29 mL/min/1.73 square meter and albuminuria creatinine ratio between 30-299 mg/g Chronic kidney disease (CKD) stage G4/A1, severely decreased glomerular filtration rate (GFR) between 15-29 mL/min/1.73 square meter and albuminuria creatinine ratio less than 30 mg/g Ingrown toenail Neuropathy Hyperglycemia due to diabetes mellitus Frequent falls Tremor Depression Chronic pain Rheumatoid arthritis Congestive heart failure (CHF) Lumbar spondylosis Greater trochanteric bursitis CKD (chronic kidney disease) stage 3, GFR 30-59 ml/min Malaise and fatigue Vitamin B12 deficiency History of CAD (coronary artery disease) Memory loss Anxiety and depression Degenerative disc disease at L5-S1 level CAD (coronary artery disease) Cellulitis, abdominal wall Left shoulder pain Gastroparesis Vitamin D deficiency Acute kidney injury Elevated anti-tissue transglutaminase (tTG) IgA level Ileostomy present Short bowel syndrome Loss of hearing Wears glasses History of COVID-19 Anxiety Insulin dependent diabetes mellitus Walker as ambulation aid Fatty liver Migraine headache Hx of diabetic gastroparesis Gastric reflux Former smoker BiPAP (biphasic positive airway pressure) dependence Cardiology follow-up encounter Myoclonic jerking Chronic narcotic use Avascular necrosis of bone of left hip Chronic back pain Non-alcoholic fatty liver disease Liver mass Ulcerative colitis Nonalcoholic steatohepatitis Chronic respiratory failure Smoking greater than 20 pack years Obesity Chronic respiratory failure with hypoxia, on home O2 therapy Diabetic gastroparesis Secondary pulmonary arterial hypertension Chronic diastolic (congestive) heart failure Type 2 diabetes mellitus with diabetic polyneuropathy BMI 31.0-31.9,adult Depression with anxiety Arthritis Menieres disease Hyperlipidemia Psoriasis Obstructive sleep apnea COPD (chronic obstructive pulmonary disease) FCHL (familial combined hyperlipidemia) DM2 (diabetes mellitus, type 2) Home Medications ?Medication ?Instructions ?Recorded ?Last Taken ?Type cyclobenzaprine 10 mg tablet 10 mg PO TID PRN muscle spasm #30 02/24/23 04/30/23 Rx tabs diphenoxylate-atropine 2.5 1 tab PO TID PRN diarrhea 06/21/23 09/04/23 History mg-0.025 mg tablet (Lomotil) isosorbide dinitrate 30 mg tablet 30 mg PO BID heart #60 tabs 12/08/23 02/17/24 Rx hyoscyamine sulfate 0.125 mg tablet 0.125 mg PO BID-QID PRN dyspepsia 12/23/23 Unknown History fluticasone propionate 50 2 spray intranasal DAILY allergies 01/04/24 02/17/24 Rx mcg/actuation nasal #16 grams spray,suspension (Flonase Allergy Relief) clopidogrel 75 mg tablet 75 mg PO DAILY anti platelet #28 02/02/24 02/17/24 Rx TABLETS melatonin 5 mg tablet 5 mg PO QHS PRN sleep 02/17/24 Unknown History triamcinolone acetonide 0.1 % 1 applic topical DAILY PRN 02/17/24 Unknown History topical ointment psoriasis aspirin 81 mg tablet,delayed 81 mg PO DAILY heart health #30 02/24/24 Unknown Rx release tabs nitroglycerin 0.4 mg sublingual 0.4 mg sublingual Q5-15M PRN chest 02/24/24 Unknown Rx tablet pain #25 tabs evolocumab 140 mg/mL subcutaneous 140 mg subcut Q2W #6 mL 02/29/24 Unknown Rx pen injector (Repatha SureClick) insulin pump cart,auto,BT,G6/7 #45 ea 03/10/24 Unknown Rx (Omnipod 5 G6-G7 Pods (Gen 5) subcutaneous cartridge) dicyclomine 10 mg capsule 10 mg PO BID PRN stomach 03/11/24 Unknown History pantoprazole 40 mg tablet,delayed 40 mg PO BID GERD #60 tabs 03/29/24 Unknown Rx release (Protonix) cholecalciferol (vitamin D3) 1,250 1,250 mcg PO .monthly vit #14 caps 04/05/24 Unknown Rx mcg (50,000 unit) capsule insulin lispro 200 unit/mL (3 mL) 180 unit (0.9 mL) subcut QDAY 04/11/24 Unknown Rx subcutaneous pen (Humalog KwikPen diabetes #81 mL U-200 Insulin) buprenorphine 10 mcg/hour weekly 1 patch transdermal Q7D 04/24/24 Unknown History transdermal patch (Butrans) albuterol sulfate 90 mcg/actuation 2 puff inhalation Q4-6H PRN SOB 04/26/24 Unknown Rx aerosol inhaler #8.5 grams hydroxyzine HCl 25 mg tablet 25 mg PO TID PRN anxiety #90 tabs 04/26/24 Unknown Rx duloxetine 60 mg capsule,delayed 60 mg PO BID mental health #60 caps 05/09/24 Unknown Rx release lamotrigine 200 mg tablet 200 mg PO DAILY mood 30 days #30 05/09/24 Unknown Rx tabs mirtazapine 7.5 mg tablet 7.5 mg PO QHS mental health #30 05/09/24 Unknown Rx tabs amlodipine 5 mg tablet 5 mg PO QDAY #30 tabs 05/15/24 Unknown Rx galantamine 16 mg 24 hr 16 mg PO QAM #30 caps 06/03/24 Unknown Rx capsule,extended release primidone 50 mg tablet 50 mg PO BID #60 tabs 06/03/24 Unknown Rx rimegepant 75 mg disintegrating 75 mg PO DAILY PRN migraine 06/03/24 Unknown Rx tablet (Nurtec ODT) headache #16 tabs Dexcom G7 Sensor (blood-glucose #9 ea 06/13/24 Unknown Rx sensor) metoprolol tartrate 25 mg tablet 25 mg PO BID #180 tabs 06/14/24 Unknown Rx metoprolol tartrate 50 mg tablet 50 mg PO BID #180 tabs 06/14/24 Unknown Rx pregabalin 75 mg capsule 75 mg PO DAILY pain #30 caps 06/16/24 Unknown Rx atorvastatin 80 mg tablet 80 mg PO QHS CHOLESTEROL LOWERING 06/21/24 Unknown Rx #90 tabs Allergy/AdvReac Type Severity Reaction Status Date / Time cinnamon (Cinnamon) Allergy Severe Anaphylaxis Verified 06/30/24 15:17 Influenza Virus Vaccines Allergy Severe Shortness Verified 06/30/24 15:17 of breath liraglutide (From Victoza) Allergy Severe Anaphylaxis Verified 06/30/24 15:17 ciprofloxacin Allergy Intermediate Swelling Verified 06/30/24 15:17 metformin (From Glucophage) Allergy Mild Nausea Verified 06/30/24 15:17 metronidazole (From Flagyl) Allergy Hives Verified 06/30/24 15:17 Metronidazole HCl (From Allergy Hives Verified 06/30/24 15:17 Flagyl) Penicillins Allergy Hives Verified 06/30/24 15:17 Sulfa (Sulfonamide Allergy Hives Verified 06/30/24 15:17 Antibiotics) ranolazine AdvReac Nausea/Vom/ Verified 06/30/24 15:17 Diarrhea Yjvtnyo-JMC-GhD Reductase AdvReac Nausea/joints Verified 06/30/24 15:17 Inhibitor (Dhcaneg-Dsw-Fjh ache Reductase Inhibitor) Family History Mother CVA (cerebral vascular accident) Diabetes Brother Heart disease of CAD at 65 Myocardial infarction Pancreatitis Father Cancer lymphomia Lymphoma Grandmother Myocardial infarction of IA in her 70s Sister COPD (chronic obstructive pulmonary disease) Surgical History History of vascular access device History of colonoscopy History of esophagogastroduodenoscopy (EGD) History of appendectomy History of coronary artery stent placement H/O total hip arthroplasty Status post total hip replacement, left History of cardiac catheterization History of History of cholecystectomy H/O coronary artery bypass surgery (05/18/12) History of coronary artery stent placement (01/12/18) H/O sinus surgery history closed fissure Ileostomy status H/O colectomy left thumb surgery H/O total hysterectomy ileostomy Social History household members: spouse and none Smoking Status: Former smoker quit date: 03/08/12 how long ago did patient quit smoking: quit in 2013; 0.5-1ppd x 30yrs alcohol intake: never substance use type: does not use diet: diabetic caffeine: No eating out: 1-3 times/week what type of physical activity do you participate in: none seatbelt use: always do you feel safe at home: Yes ROS ROS ED ROS Narrative Review of systems positive for swelling of the 3rd and 4th digits on right hand, left thumb pain worse with movement, and right knee pain also worse with movement. Denies other injuries. No neck pain, no hitting of head or loss of consciousness. EXAM Physical Exam Narrative Exam Narrative: GCS 15. ABCs are intact. Cardiovascular examination reveals regular rate and rhythm. Lungs are clear to auscultation bilaterally. Abdomen soft, nontender, without guarding or rebound. Inspection of the right hand does reveal mild swelling diffusely of the 3rd and 4th digits but mainly on the proximal and middle phalanxes. Able to oppose thumb on right. Inspection of the left hand reveals diffuse tenderness to palpation of the proximal phalanx of the left thumb, no crepitance. Able to oppose thumb. Uninjured at the wrist and above. She has diffuse pain throughout the right knee but is able to lift her leg off the bed without difficulty. Palpable dorsalis pedis pulse bilaterally. Const Vital Signs: 06/30/24 15:15 06/30/24 15:35 Temperature 98.2 F Temperature Source Oral Pulse Rate 94 Respiratory Rate 20 H Respiratory Effort Normal Respiratory Depth Normal Respiratory Pattern Normal Blood Pressure 158/85 H Blood Pressure Mean 109 Pulse Ox 95 97 Oxygen Delivery Method Room Air Room Air MDM MDM MDM Narrative Medical decision making narrative: Patient does have a ring on her middle finger of her right hand. She states she was unable to remove it. Given the swelling, I discussed cutting the ring off so as to avoid loss of circulation should the swelling continue. She was agreeable to this. The differential diagnosis does include right finger sprains versus fracture as well as left thumb sprain versus fracture. She may have more of a right knee contusion with internal derangement versus tibial plateau fracture. She has been ambulating so I doubt tibial plateau fracture. X-rays were obtained of the bilateral hands and of the right knee. On my independent interpretation of the x-rays of the right hand, there is no evidence of fracture especially on the 3rd and 4th digits. Additionally, on my independent interpretation of the left hand, there is no thumb fracture. My individual interpretation of the right knee shows no acute osseous abnormality or fracture as well. I reviewed the radiology report for these x-rays which confirm my independent interpretations. At this point in time, she already has a knee sleeve that she can wear. She will continue ice and elevation at home. She has had a finger splint on her middle finger. She will be given a Velcro thumb spica splint for her left hand. At this point in time, I feel she can be discharged to take [id number]-[id number] medications, and follow-up with her orthopedic surgeon. Return instructions to the emergency department were reviewed. Disposition is discharged home in stable condition. History & Record Review Discussion w/independent historian: Patient and Significant other Radiography X-Ray: Read by ED Physician and Read by Radiologist Diagnostic Testing: Clinical Impression(s) from Imaging Studies Hand X-Ray 06/30/24 15:35 IMPRESSION: 1. Soft tissue swelling without acute fracture. 2. If symptoms persist, further evaluation with CT is recommended. Reading Location: [facility] Hand X-Ray 06/30/24 15:35 IMPRESSION: 1. Soft tissue swelling without acute fracture. 2. If symptoms persist, further evaluation with CT is recommended. Reading Location: [facility] Knee X-Ray 06/30/24 15:35 IMPRESSION: Bilateral chondrocalcinosis concerning for CPPD. No acute osseous findings. Reading Location: [facility] Discharge Plan Triage Chief Complaint: Fall ED Provider: Clarke Belcher Dx/Rx/DC Orders Clinical Impression: Falls, Left thumb sprain, Contusion of right middle finger, Right knee sprain Instructions: ED Finger Contusion, ED Knee Sprain, ED Finger Sprain Prescriptions: No Action cyclobenzaprine 10 mg tablet 10 mg PO TID PRN (Reason: muscle spasm) Qty: 30 0RF aspirin 81 mg tablet,delayed release (DR/EC) 81 mg PO DAILY Qty: 30 11RF nitroglycerin 0.4 mg tablet, sublingual 0.4 mg sublingual Q5-15M PRN (Reason: chest pain) Qty: 25 3RF Rx Instructions: do not exceed 3 doses per episode hyoscyamine sulfate 0.125 mg tablet 0.125 mg PO BID-QID PRN (Reason: dyspepsia) galantamine 16 mg capsule,ext rel. pellets 24 hr 16 mg PO QAM Qty: 30 5RF Rx Instructions: Administer with breakfast. Nurtec ODT 75 mg tablet,disintegrating 75 mg PO DAILY PRN (Reason: migraine headache) Qty: 16 2RF primidone 50 mg tablet 50 mg PO BID Qty: 60 5RF duloxetine 60 mg capsule,delayed release(DR/EC) 60 mg PO BID Qty: 60 2RF lamotrigine 200 mg tablet 200 mg PO DAILY 30 Days Qty: 30 2RF Rx Instructions: Hold for lethargy/sedation mirtazapine 7.5 mg tablet 7.5 mg PO QHS Qty: 30 2RF Rx Instructions: Hold for lethargy/sedation diphenoxylate-atropine [Lomotil] 2.5-0.025 mg tablet 1 tab PO TID PRN (Reason: diarrhea) melatonin 5 mg tablet 5 mg PO QHS PRN (Reason: sleep) triamcinolone acetonide 0.1 % ointment 1 applic topical DAILY PRN (Reason: psoriasis) buprenorphine [Butrans] 10 mcg/hour patch weekly 1 patch transdermal Q7D dicyclomine 10 mg Capsule 10 mg PO BID PRN (Reason: stomach) isosorbide dinitrate 30 mg tablet 30 mg PO BID Qty: 60 11RF fluticasone propionate [Flonase Allergy Relief] 50 mcg/actuation spray,suspension 2 spray intranasal DAILY Qty: 16 3RF Rx Instructions: administer into each nostril clopidogrel 75 mg tablet 75 mg PO DAILY Qty: 28 11RF Repatha SureClick 140 mg/mL pen injector 140 mg subcut Q2W Qty: 6 3RF (DME) Omnipod 5 G6-G7 Pods (Gen 5) Cartridge See Rx Instructions .Route Qty: 45 1RF Rx Instructions: change every 48 hours pantoprazole [Protonix] 40 mg tablet,delayed release (DR/EC) 40 mg PO BID Qty: 60 11RF cholecalciferol (vitamin D3) 1,250 mcg (50,000 unit) capsule 1,250 mcg PO .monthly Qty: 14 1RF Humalog KwikPen Insulin 200 unit/mL (3 mL) insulin pen 180 unit subcut QDAY Qty: 81 1RF Rx Instructions: via insulin pump hydroxyzine HCl 25 mg tablet 25 mg PO TID PRN (Reason: anxiety) Qty: 90 2RF albuterol sulfate 90 mcg/actuation HFA aerosol inhaler 2 puff INHALATION Q4-6H PRN (Reason: SOB) Qty: 8.5 0RF amlodipine 5 mg tablet 5 mg PO QDAY Qty: 30 11RF (DME) Dexcom G7 Sensor Device See Rx Instructions .Route Qty: 9 3RF Rx Instructions: change every 10 days metoprolol tartrate 25 mg tablet 25 mg PO BID Qty: 180 3RF Rx Instructions: Take with 50 mg tablet to = 75 mg BID metoprolol tartrate 50 mg tablet 50 mg PO BID Qty: 180 3RF Rx Instructions: Take with 25 mg tablet to = 75 mg BID pregabalin 75 mg capsule 75 mg PO DAILY Qty: 30 1RF atorvastatin 80 mg tablet 80 mg PO QHS Qty: 90 1RF Patient Comments: cholesterol Primary Care Provider: Mala Mcgrath Referrals: Mala Mcgrath MD [Primary Care Provider] - Henri Camacho DO [Med Staff - Active Staff] - 1 Week if not improving Activity Restrictions/Additional Instructions: Wear the thumb spica splint on your left hand for 1 week or until evaluated by Dr. Camacho. Continue to wear your knee sleeve as well. [id number] medications for analgesia. Ice and elevate affected areas for 10 to 15 minutes when possible. Print Language: Wolof Disposition Disposition: Home, Self Care
[2024-06-30 15:35] VITALS: O2SAT 97
--- NOTE | 2024-06-30 15:35 | RAD_ITS ---
EXAM: XR Left Hand Complete, 3 or More Views CLINICAL INDICATION: TRAUMA TECHNIQUE: Frontal, lateral and oblique views of the left hand. COMPARISON: No relevant prior studies available. FINDINGS: BONES/JOINTS: See below. SOFT TISSUES: Soft tissue swelling without acute fracture. No radiopaque foreign body. RAD/Hand Min 3 Views IMPRESSION: 1. Soft tissue swelling without acute fracture. 2. If symptoms persist, further evaluation with CT is recommended. Reading Location: [id number]
--- NOTE | 2024-06-30 15:35 | RAD_ITS ---
EXAM: XR Right Hand Complete, 3 or More Views CLINICAL INDICATION: TRAUMA TECHNIQUE: Frontal, lateral and oblique views of the right hand. COMPARISON: No relevant prior studies available. FINDINGS: BONES/JOINTS: See below. SOFT TISSUES: Soft tissue swelling without acute fracture. No radiopaque foreign body. RAD/Hand Min 3 Views IMPRESSION: 1. Soft tissue swelling without acute fracture. 2. If symptoms persist, further evaluation with CT is recommended. Reading Location: [id number]
--- NOTE | 2024-06-30 15:35 | RAD_ITS ---
PROCEDURE: KNEE 4 OR MORE VIEWS 06/30/2024 REASON FOR EXAM: TRAUMA TECHNIQUE: 4 view(s) of the right knee COMPARISON: 06/05/2024. FINDINGS: Bones: No acute osseous abnormalities. Joints: No dislocations or subluxations. Bilateral chondrocalcinosis. Effusion: Unremarkable. Soft tissues: Unremarkable. Other: No other significant findings. RAD/Knee 4 or More Views IMPRESSION: Bilateral chondrocalcinosis concerning for CPPD. No acute osseous findings. Reading Location: [facility]
[2024-06-30 16:19] VITALS: BP 134/78; PULSE 64; RESP 16; TEMP 36.9; O2SAT 99
== END 2024-06-30 16:31 | disposition home or self-care (01) ==
PROVIDERS: Emergency Provider Emergency Medicine; PCP Internal Medicine; Visit Provider Emergency Medicine
DX: S63.602A Unspecified sprain of left thumb, initial encounter (principal); M06.9 Rheumatoid arthritis, unspecified; I50.32 Chronic diastolic (congestive) heart failure; I11.0 Hypertensive heart disease with heart failure; F03.94 Unspecified dementia, unspecified severity, with anxiety; F03.93 Unspecified dementia, unspecified severity, with mood disturbance; J44.9 Chronic obstructive pulmonary disease, unspecified; Z79.4 Long term (current) use of insulin; E11.42 Type 2 diabetes mellitus with diabetic polyneuropathy; E11.43 Type 2 diabetes mellitus with diabetic autonomic (poly)neuropathy; S83.91XA Sprain of unspecified site of right knee, initial encounter; S60.031A Contusion of right middle finger without damage to nail, initial encounter; W18.09XA Striking against other object with subsequent fall, initial encounter; Z91.81 History of falling; I25.10 Atherosclerotic heart disease of native coronary artery without angina pectoris; Z96.41 Presence of insulin pump (external) (internal); E78.00 Pure hypercholesterolemia, unspecified; E55.9 Vitamin D deficiency, unspecified; L40.9 Psoriasis, unspecified; D47.2 Monoclonal gammopathy; K21.9 Gastro-esophageal reflux disease without esophagitis; K31.84 Gastroparesis; G89.29 Other chronic pain; G47.33 Obstructive sleep apnea (adult) (pediatric); Z95.1 Presence of aortocoronary bypass graft; Z79.02 Long term (current) use of antithrombotics/antiplatelets; Z79.82 Long term (current) use of aspirin; Z79.899 Other long term (current) drug therapy; Z87.891 Personal history of nicotine dependence
CPT/HCPCS: 73130; 73564; 99283

== ENCOUNTER 2024-07-03 11:02 | Outpatient (CLI) | payer MEDICARE, MEDICAID, SELFPAY ==
[2024-06-27 09:22] VITALS: BMI 30.9
[2024-07-03 11:18] VITALS: BP 151/58; PULSE 66; RESP 16; TEMP 36.4; O2SAT 96; BMI 33.2
[2024-07-03] MEDS: Lactated Ringers 1,000 ML 999 ML IV (11:21)
[2024-07-03] MEDS: 0.9% NaCl Peripheral Flush Adult IV (12:23)
[2024-07-03 12:26] VITALS: BP 140/57; PULSE 68; RESP 16
== END 2024-07-03 23:59 | disposition home or self-care (01) ==
LOC: MEDOUTP 11:02
PROVIDERS: PCP Internal Medicine; Referring Provider Student in an Organized Health Care Education/Training Program; Visit Provider Student in an Organized Health Care Education/Training Program
DX: E86.0 Dehydration (principal); R19.8 Other specified symptoms and signs involving the digestive system and abdomen
CPT/HCPCS: 96360; A4216

== ENCOUNTER 2024-07-05 11:43 | Outpatient (CLI) | payer MEDICARE, MEDICAID, SELFPAY ==
[2024-06-27 09:22] VITALS: BMI 30.9
[2024-07-05] MEDS: Lactated Ringers 1,000 ML 999 ML IV (11:50)
[2024-07-05 11:53] VITALS: BP 163/63; PULSE 75; RESP 16; TEMP 36.4; O2SAT 98
[2024-07-05] MEDS: 0.9% NaCl Peripheral Flush Adult IV (12:58)
[2024-07-05 13:01] VITALS: BP 166/61
== END 2024-07-05 23:59 | disposition home or self-care (01) ==
LOC: MEDOUTP 11:43
PROVIDERS: PCP Internal Medicine; Referring Provider Student in an Organized Health Care Education/Training Program; Visit Provider Student in an Organized Health Care Education/Training Program
DX: E86.0 Dehydration (principal); R19.8 Other specified symptoms and signs involving the digestive system and abdomen
CPT/HCPCS: 96360; A4216

== ENCOUNTER 2024-07-10 11:09 | Outpatient (CLI) | payer MEDICARE, MEDICAID, SELFPAY ==
[2024-06-27 09:22] VITALS: BMI 30.9
[2024-07-10] MEDS: Lactated Ringers 1,000 ML 999 ML IV (11:19)
[2024-07-10 11:21] VITALS: BP 164/86; PULSE 71; RESP 16; TEMP 36.4; O2SAT 97
[2024-07-10] MEDS: 0.9% NaCl Peripheral Flush Adult IV (12:25)
[2024-07-10 12:26] VITALS: BP 151/79; PULSE 75; RESP 16; TEMP 36.3
== END 2024-07-10 23:59 | disposition home or self-care (01) ==
LOC: MEDOUTP 11:09
PROVIDERS: PCP Internal Medicine; Referring Provider Student in an Organized Health Care Education/Training Program; Visit Provider Student in an Organized Health Care Education/Training Program
DX: E86.0 Dehydration (principal); R19.8 Other specified symptoms and signs involving the digestive system and abdomen
CPT/HCPCS: 96360; A4216

== ENCOUNTER 2024-07-19 11:04 | Outpatient (CLI) | payer MEDICARE, MEDICAID, SELFPAY ==
[2024-06-27 09:22] VITALS: BMI 30.9
[2024-07-19] MEDS: Lactated Ringers 1,000 ML 1000 ML IV (11:18)
[2024-07-19 11:19] VITALS: BP 180/69; PULSE 84; RESP 16; TEMP 36.1; O2SAT 95
[2024-07-19] MEDS: 0.9% NaCl Peripheral Flush Adult IV (12:23)
[2024-07-19 12:27] VITALS: BP 144/46; PULSE 80; RESP 16; TEMP 36.1; O2SAT 97
== END 2024-07-19 23:59 | disposition home or self-care (01) ==
LOC: MEDOUTP 11:04
PROVIDERS: PCP Internal Medicine; Referring Provider Student in an Organized Health Care Education/Training Program; Visit Provider Student in an Organized Health Care Education/Training Program
DX: E86.0 Dehydration (principal); R19.8 Other specified symptoms and signs involving the digestive system and abdomen
CPT/HCPCS: 96360; A4216

== ENCOUNTER → 2024-07-22 | Outpatient (CLI) | payer MEDICARE, MEDICAID, SELFPAY ==
[2024-06-27 09:22] VITALS: BMI 30.9
--- NOTE | 2024-07-22 09:30 | MRI_ITS ---
PROCEDURE: LOWER EXT JOINT ONLY (ROUTINE) 07/22/2024 REASON FOR EXAM: PAIN, DIFFICULTY WALKING, EFFUSION, MULTIPLE FALLS TECHNIQUE: T1, T2, PD MRI of the right lower Extremity. Multiplanar and multisequence images were obtained without IV contrast administration. 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 There is marrow edema throughout the medial tibial plateau with no displaced fracture. There is severe chondromalacia in the medial compartment. There is moderate chondromalacia in the lateral compartment with a fissure noted in the central portion of the lateral femoral condyle. Effusion: There is a large joint effusion. Plica are noted in the superior joint space. There is no Schneider's cyst. Soft Tissues: The anterior and posterior cruciate ligaments appear intact. There is edema and attenuation in the mid and lower portion of the medial collateral ligament without laxity, grade 2 sprain. The lateral collateral ligament complex appears intact. Menisci: There is a horizontal tear in the posterior horn of the lateral meniscus which extends to the tibial surface, sagittal image 33/41. There is a complex tear in the posterior horn and body of the medial meniscus with a horizontal component extending to the femoral surface, and to the root, with extrusion of the anterior body. Ligaments and Tendons: The distal quadriceps and proximal patellar tendon show moderate tendinopathy without tear. MRI/Lower Ext Joint Only (Routine) IMPRESSION: There is a 3.2 x 1.4 cm region of heterogeneous marrow consistent with prior zoya ne infarct in the femoral diaphysis, incompletely visualized. There is marrow edema throughout the medial tibial plateau with no displaced fr acture. There is severe chondromalacia in the medial compartment. There is moderate chondromalacia in the lateral compartment with a fissure note d in the central portion of the lateral femoral condyle. There is a large joint effusion. Plica are noted in the superior joint space. There is edema and attenuation in the mid and lower portion of the medial colla teral ligament without laxity, grade 2 sprain. There is a horizontal tear in the posterior horn of the lateral meniscus which extends to the tibial surface, sagittal image 33/41. There is a complex tear in the posterior horn and body of the medial meniscus w ith a horizontal component extending to the femoral surface, and to the root, with extrusion of the anterior body. The distal quadriceps and proximal patellar tendon show moderate tendinopathy w ithout tear. Reading Location: [facility]
== END | disposition home or self-care (01) ==
LOC: MRI 09:15
PROVIDERS: PCP Internal Medicine; Referring Provider Nurse Practitioner Family; Visit Provider Nurse Practitioner Family
DX: M25.461 Effusion, right knee (principal); M25.561 Pain in right knee; R26.89 Other abnormalities of gait and mobility; R29.6 Repeated falls
CPT/HCPCS: 73721

== ENCOUNTER 2024-07-25 09:37 | Inpatient (IN) | payer MEDICARE, MEDICAID, SELFPAY ==
[2024-06-27 09:22] VITALS: BMI 30.9
--- NOTE | 2024-07-19 08:56 | EKG12_ITS ---
Test Reason : PREOP Blood Pressure : */* mmHG Vent. Rate : 73 BPM Atrial Rate : 73 BPM P-R Int : 184 ms QRS Dur : 94 ms QT Int : 388 ms P-R-T Axes : 39 -23 156 degrees QTcB Int : 427 ms Normal sinus rhythm Left ventricular hypertrophy with repolarization abnormality Abnormal ECG Confirmed by Nazario Verduzco ([id number]), deputy editor in chief DEREK CAVAZOS ([id number]) on 07/20/2024 9:36:36 AM Referred By: Shiva Spencer Confirmed By: Nazario Verduzco
--- NOTE | 2024-07-20 12:19 | PAT.ANESEVAL ---
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 When Was Last Pacemaker Check QUESTION #4 FULL TEXT: You/Your Family Experience fever (hyperthermia) with Anesthesia Last Oral Intake Last Oral intake: Last Oral Intake NPO since Meds taken in AM with sips of water? Meds patient instructed to take am of surgery PONV PONV - automotive dismantler: PONV - automotive dismantler Female Yes 07/11/24 14:14 HX of Motion Sickness No 07/11/24 14:14 HX of N/V After Surgery No 07/11/24 14:14 Non-Smoker Yes 07/11/24 14:14 Duration of Surgery greater Yes 07/11/24 14:14 than 60 minutes Number of Risk Factors 3 07/11/24 14:14 PONV Score Moderate Risk 07/11/24 14:14 Height & Weight Height & Weight: Anesthesia: Height & Weight Height 5 ft 7 in 06/27/24 09:22 Respiratory Assessment Respiratory Assessment - automotive dismantler: Respiratory Tract Infection Hx - automotive dismantler Hx Respiratory Tract Infection No 07/11/24 14:14 STOP Sleep Apnea STOP Sleep Apnea - automotive dismantler: STOP Sleep Apnea - automotive dismantler Hx Hypertension Yes 07/11/24 14:14 Hx Sleep Apnea Yes 07/11/24 14:14 CPAP No 07/11/24 14:14 BIPAP No: NON COMPLIANT 07/11/24 14:14 Do you snore loudly (louder than talking or can be heard Do you often feel tired/ fatigued/ sleepy during daytime? Has anyone observed you stop breathing during sleep? STOP Results Positive 07/11/24 14:14 QUESTION #5 FULL TEXT : Do you snore loudly (louder than talking or can be heard through closed doors)? Tobacco Use History Tobacco Use History - automotive dismantler: Tobacco Use History - automotive dismantler Tobacco Use Cigarettes 06/27/24 09:22 Smoking Status Former smoker 07/11/24 14:14 Hx Tobacco Use No 07/11/24 14:14 Years Smoking Packs Smoked per Day Smoking Cessation Date was Yes - quit smoking within 15 07/11/24 14:14 within the last 15 years years Hx Smoking Cessation Date 03/08/12 07/11/24 14:14 Hx Smoking Cessation No 07/11/24 14:14 Counseling Hematologic Medial History Hematologic Hx - automotive dismantler: Hematologic Medical Hx - disability services coordinator Hx of Blood Transfusion No 07/11/24 14:14 Hx of Transfusion in last 3 No 07/11/24 14:14 Months Date of Last Transfusion (if within last 3 months) Ever experience any problems No 07/11/24 14:14 with transfusion(s)? Specify any problems Hx of Preganancy in last 3 No 07/11/24 14:14 Months Nurse Filling Out Transfusion [facility] 07/11/24 14:14 & Questions: Date: 07/11/24 07/11/24 14:14 Time: 14:17 07/11/24 14:14 Patient unable to answer at this time (ie. confused, unrespo /Reproduction History /Reproductive History - automotive dismantler: /Reproductive Hx- automotive dismantler Hx Now No 07/11/24 14:14 Gestational Age (in weeks): EDC: Hx Hx Para Hx Section SAB No 06/27/24 09:22 [facility] Medical History History of stress test Immunity status testing Chronic kidney disease, stage 3b History of CAD (coronary artery disease) History of chronic kidney disease History of diabetes mellitus CAD (coronary artery disease) Dehydration Falls Hypoxic respiratory failure Hypercapnic respiratory failure Fatigue Low back pain Abnormality of gait and mobility Polyneuropathy Insulin pump titration Presence of insulin pump Health care maintenance Essential tremor Dementia History of stress test Fungal dermatitis Herpes genitalia Encounter for insertion of venous access port Post-menopausal Rash Back pain Arthritis Ambulates with cane History of renal disease High cholesterol Dietary restriction History of pain when walking History of echocardiogram Chronic kidney disease (CKD) stage G4/A2, severely decreased glomerular filtration rate (GFR) between 15-29 mL/min/1.73 square meter and albuminuria creatinine ratio between 30-299 mg/g Chronic kidney disease (CKD) stage G4/A1, severely decreased glomerular filtration rate (GFR) between 15-29 mL/min/1.73 square meter and albuminuria creatinine ratio less than 30 mg/g Ingrown toenail Neuropathy Hyperglycemia due to diabetes mellitus Frequent falls Tremor Depression Chronic pain Rheumatoid arthritis Congestive heart failure (CHF) Lumbar spondylosis Greater trochanteric bursitis CKD (chronic kidney disease) stage 3, GFR 30-59 ml/min Malaise and fatigue Vitamin B12 deficiency History of CAD (coronary artery disease) Memory loss Anxiety and depression Degenerative disc disease at L5-S1 level CAD (coronary artery disease) Cellulitis, abdominal wall Left shoulder pain Gastroparesis Vitamin D deficiency Acute kidney injury CKD (chronic kidney disease), stage IV High output ileostomy MGUS (monoclonal gammopathy of unknown significance) Elevated anti-tissue transglutaminase (tTG) IgA level Ileostomy present Short bowel syndrome Loss of hearing Wears glasses History of COVID-19 Anxiety Insulin dependent diabetes mellitus Walker as ambulation aid Fatty liver Migraine headache Hx of diabetic gastroparesis Gastric reflux Former smoker BiPAP (biphasic positive airway pressure) dependence Hypertension Cardiology follow-up encounter Myoclonic jerking Chronic narcotic use Avascular necrosis of bone of left hip Chronic back pain Non-alcoholic fatty liver disease Liver mass Ulcerative colitis Nonalcoholic steatohepatitis Chronic respiratory failure Smoking greater than 20 pack years Obesity Chronic respiratory failure with hypoxia, on home O2 therapy Diabetic gastroparesis Secondary pulmonary arterial hypertension Chronic diastolic (congestive) heart failure Type 2 diabetes mellitus with diabetic polyneuropathy BMI 31.0-31.9,adult Depression with anxiety Arthritis Menieres disease Hyperlipidemia Psoriasis Obstructive sleep apnea COPD (chronic obstructive pulmonary disease) FCHL (familial combined hyperlipidemia) DM2 (diabetes mellitus, type 2) Home Medications ?Medication ?Instructions ?Recorded ?Last Taken ?Type cyclobenzaprine 10 mg tablet 10 mg PO TID PRN muscle spasm #30 02/24/23 04/30/23 Rx tabs diphenoxylate-atropine 2.5 1 tab PO TID PRN diarrhea 06/21/23 09/04/23 History mg-0.025 mg tablet (Lomotil) isosorbide dinitrate 30 mg tablet 30 mg PO BID heart #60 tabs 12/08/23 02/17/24 Rx hyoscyamine sulfate 0.125 mg tablet 0.125 mg PO BID-QID PRN dyspepsia 12/23/23 Unknown History fluticasone propionate 50 2 spray intranasal DAILY allergies 01/04/24 02/17/24 Rx mcg/actuation nasal #16 grams spray,suspension (Flonase Allergy Relief) clopidogrel 75 mg tablet 75 mg PO DAILY anti platelet #28 02/02/24 02/17/24 Rx TABLETS triamcinolone acetonide 0.1 % 1 applic topical DAILY PRN 02/17/24 Unknown History topical ointment psoriasis aspirin 81 mg tablet,delayed 81 mg PO DAILY heart health #30 02/24/24 Unknown Rx release tabs nitroglycerin 0.4 mg sublingual 0.4 mg sublingual Q5-15M PRN chest 02/24/24 Unknown Rx tablet pain #25 tabs evolocumab 140 mg/mL subcutaneous 140 mg subcut Q2W #6 mL 02/29/24 Unknown Rx pen injector (Repatha SureClick) insulin pump cart,auto,BT,G6/7 #45 ea 03/10/24 Unknown Rx (Omnipod 5 G6-G7 Pods (Gen 5) subcutaneous cartridge) dicyclomine 10 mg capsule 10 mg PO BID PRN stomach 03/11/24 Unknown History pantoprazole 40 mg tablet,delayed 40 mg PO BID GERD #60 tabs 03/29/24 Unknown Rx release (Protonix) cholecalciferol (vitamin D3) 1,250 1,250 mcg PO .monthly vit #14 caps 04/05/24 Unknown Rx mcg (50,000 unit) capsule insulin lispro 200 unit/mL (3 mL) 180 unit (0.9 mL) subcut QDAY 04/11/24 Unknown Rx subcutaneous pen (Humalog KwikPen diabetes #81 mL U-200 Insulin) buprenorphine 10 mcg/hour weekly 1 patch transdermal Q7D 04/24/24 Unknown History transdermal patch (Butrans) albuterol sulfate 90 mcg/actuation 2 puff inhalation Q4-6H PRN SOB 04/26/24 Unknown Rx aerosol inhaler #8.5 grams hydroxyzine HCl 25 mg tablet 25 mg PO TID PRN anxiety #90 tabs 04/26/24 Unknown Rx duloxetine 60 mg capsule,delayed 60 mg PO BID mental health #60 caps 05/09/24 Unknown Rx release lamotrigine 200 mg tablet 200 mg PO DAILY mood 30 days #30 05/09/24 Unknown Rx tabs mirtazapine 7.5 mg tablet 7.5 mg PO QHS mental health #30 05/09/24 Unknown Rx tabs amlodipine 5 mg tablet 5 mg PO QDAY #30 tabs 05/15/24 Unknown Rx galantamine 16 mg 24 hr 16 mg PO QAM #30 caps 06/03/24 Unknown Rx capsule,extended release primidone 50 mg tablet 50 mg PO BID #60 tabs 06/03/24 Unknown Rx rimegepant 75 mg disintegrating 75 mg PO DAILY PRN migraine 06/03/24 Unknown Rx tablet (Nurtec ODT) headache #16 tabs Dexcom G7 Sensor (blood-glucose #9 ea 06/13/24 Unknown Rx sensor) metoprolol tartrate 25 mg tablet 25 mg PO BID #180 tabs 06/14/24 Unknown Rx metoprolol tartrate 50 mg tablet 50 mg PO BID #180 tabs 06/14/24 Unknown Rx pregabalin 75 mg capsule 75 mg PO DAILY pain #30 caps 06/16/24 Unknown Rx atorvastatin 80 mg tablet 80 mg PO QHS CHOLESTEROL LOWERING 06/21/24 Unknown Rx #90 tabs valacyclovir 500 mg tablet 500 mg PO Q12H PRN HSV 07/11/24 Unknown History Allergy/AdvReac Type Severity Reaction Status Date / Time cinnamon (Cinnamon) Allergy Severe Anaphylaxis Verified 07/13/24 10:32 Influenza Virus Vaccines Allergy Severe Shortness Verified 07/13/24 10:32 of breath liraglutide (From Victoza) Allergy Severe Anaphylaxis Verified 07/13/24 10:32 ciprofloxacin Allergy Intermediate Swelling Verified 07/13/24 10:32 metformin (From Glucophage) Allergy Mild Nausea Verified 07/13/24 10:32 metronidazole (From Flagyl) Allergy Hives Verified 07/13/24 10:32 Metronidazole HCl (From Allergy Hives Verified 07/13/24 10:32 Flagyl) Penicillins Allergy Hives Verified 07/13/24 10:32 Sulfa (Sulfonamide Allergy Hives Verified 07/13/24 10:32 Antibiotics) ranolazine AdvReac Nausea/Vom/ Verified 07/13/24 10:32 Diarrhea Itwutbc-[id number]-LsQ Reductase AdvReac Nausea/joints Verified 07/13/24 10:32 Inhibitor (Bygycif-Sun-Fyf ache Reductase Inhibitor) Family History Mother CVA (cerebral vascular accident) Diabetes Brother Heart disease of CAD at 65 Myocardial infarction Pancreatitis Father Cancer lymphomia Lymphoma Grandmother Myocardial infarction of [place] in her 70s Sister COPD (chronic obstructive pulmonary disease) Surgical History History of vascular access device History of colonoscopy History of esophagogastroduodenoscopy (EGD) History of appendectomy History of coronary artery stent placement H/O total hip arthroplasty Status post total hip replacement, left History of cardiac catheterization History of History of cholecystectomy H/O coronary artery bypass surgery (05/18/12) History of coronary artery stent placement (01/12/18) H/O sinus surgery history closed fissure Ileostomy status H/O colectomy left thumb surgery H/O total hysterectomy ileostomy Social History household members: spouse and none Smoking Status: Former smoker quit date: 03/08/12 how long ago did patient quit smoking: quit in 2012; 0.5-1ppd x 30yrs alcohol intake: never substance use type: does not use diet: diabetic caffeine: No eating out: 1-3 times/week what type of physical activity do you participate in: none seatbelt use: always do you feel safe at home: Yes Prior Cardiac Testing/Procedures Prior Cardiac Testing/Procedures: Stress Test (Rest and stress SPECT Cardiolite nuclear imaging status post realignment, normalization, and attenuation correction demonstrate no evidence of significant ischemia or infarction. Gated images reveal no significant regional wall motion abnormalities. The reported LVEF is 69%. Impression: 1. Th) Addt'l Information Additional Findings: EKG NSR, Follows with Cardiology seen in 2023 with nl stress test. Recommendation Anesthesia Recommendation Anesthesia recommendation: OPTIMIZED for anesthesia
[2024-07-25] VITALS (36 sets, daily range): BP systolic 84–156; BP diastolic 35–70; PULSE 63–78; RESP 12–20; TEMP 36.1–36.9; O2SAT 4–100; BMI 33.8; BMI 34.7
[2024-07-25 06:24] LABS: Bedside Glucose 344 mg/dL (74-106)
[2024-07-25] MEDS: Lactated Ringers 1,000 ML 15 ML IV (06:36)
--- NOTE | 2024-07-25 06:49 | PRE.ANES_ITS ---
ASA Classification* ASA Classification ASA Classification: 3 Assessment & Plan Anesthesia* Anesthesia Assessment Anesthesia Assessment: Discussed sedation and/or anesthesia options, risks, benefits, and alternatives with patient/parents/legal guardian/POA. Questions invited. The patient/parents/legal guardian/POA seems to understand and agrees to proceed with anesthesia plan. Reviewed the physical assessment, medical history, allergy history and patient home medications list prior to surgery/procedure/anesthetic and documented any changes. Performed airway and anesthesia risk assessments. Anesthesia Type Anesthesia Type: General Anesthesia Focused Assessment* Temperature: 98.3 F Pulse Rate: 72 Blood Pressure: 138/62 Respiratory Rate: 18 Pulse Ox: 92 Airway Assessment Mouth opens: >3 cm Mallampati Score: II Focused Labs Anesthesia Preop lab: CBC WBC 11.2 K/mm3 (4.4-11.0) H 07/06/24 11: 5 RBC 4.18 M/mm3 (4.2-5.4) L 07/06/24 11:07/06/24 Hgb 12.0 g/dL (12.0-15.0) 07/06/24 11:07/06/24 Hct 37.6 % (37-47) 07/06/24 11:07/06/24 Plt Count 244 K/mm3 (150-450) 07/06/24 11:07/06/24 CHEMISTRY Potassium 4.9 mmol/L (3.3-5.1) 07/06/24 11:07/06/24 Sodium 138 mmol/L (133-145) 07/06/24 11:07/06/24 Magnesium 1.6 mg/dL (1.6-2.6) 03/24/24 10:03/24/24 Phosphorus 2.9 mg/dL (2.5-4.9) 04/05/24 13:40 04/05/24 BUN 29 mg/dL (4-19) H 07/06/24 11:07/06/24 Creatinine 1.55 mg/dL (0.70-1.20) H 07/06/24 11: Glucose 260 mg/dL (70-99) H 07/06/24 11:07/06/24 POC Glucose 344 mg/dL (74-106) H 07/25/24 05:58 07/25/24 TSH 0.722 uIU/mL (0.358-3.740) 10/29/23 14:11 10/07 05/29 COAG PT 12.8 SECONDS (11.7-14.9) 09/19/21 10:42 Pre-Assessment Diagnosis/Proposed Procedure Planned Operative Procedure(s): (R) Carotidstent, in Narcotics Detective, OR Staff, SENIOR SOFTWARE ARCHITECT, Anes Anesthesia History Anesthesia History - obgyn hospitalist physician: Anesthesia History - obgyn hospitalist physician Hx Hospitalization Yes: DEHYDRATION 07/11/24 14:14 Any Problems With Anesthesia No 07/11/24 14:14 Cholinesterase deficiency No 07/11/24 14:14 You/Your Family Experience No 07/11/24 14:14 fever (hyperthermia) with Relationship Recent Exposure to Contagious No 07/25/24 06:31 Disease Does patient have nerve No 07/11/24 14:14 stimulator Patient instructed to have device shut off --Does patient have Pacemaker No 07/25/24 06:31 or ICD? When Was Last Pacemaker Check QUESTION #4 FULL TEXT: You/Your Family Experience fever (hyperthermia) with Anesthesia Last Oral Intake Last Oral intake: Last Oral Intake NPO since 23:00 07/25/24 06:31 Meds taken in AM with sips of No 07/25/24 06:31 water? Meds patient instructed to take am of surgery PONV PONV - obgyn hospitalist physician: PONV - obgyn hospitalist physician Female Yes 07/11/24 14:14 HX of Motion Sickness No 07/11/24 14:14 HX of N/V After Surgery No 07/11/24 14:14 Non-Smoker Yes 07/11/24 14:14 Duration of Surgery greater Yes 07/11/24 14:14 than 60 minutes Number of Risk Factors 3 07/11/24 14:14 PONV Score Moderate Risk 07/11/24 14:14 Height & Weight Height & Weight: Anesthesia: Height & Weight Height 5 ft 7 in 07/25/24 06:31 Weight: 98 kg 07/25/24 06:31 Body Mass Index (BMI) 33.8 07/25/24 06:31 Respiratory Assessment Respiratory Assessment - obgyn hospitalist physician: Respiratory Tract Infection Hx - obgyn hospitalist physician Hx Respiratory Tract Infection No 07/11/24 14:14 STOP Sleep Apnea STOP Sleep Apnea - obgyn hospitalist physician: STOP Sleep Apnea - obgyn hospitalist physician Hx Hypertension Yes 07/19/24 11:19 Hx Sleep Apnea Yes 07/11/24 14:14 CPAP No 07/11/24 14:14 BIPAP No: NON COMPLIANT 07/11/24 14:14 Do you snore loudly (louder than talking or can be heard Do you often feel tired/ fatigued/ sleepy during daytime? Has anyone observed you stop breathing during sleep? STOP Results Positive 07/11/24 14:14 QUESTION #5 FULL TEXT : Do you snore loudly (louder than talking or can be heard through closed doors)? Tobacco Use History Tobacco Use History - obgyn hospitalist physician: Tobacco Use History - obgyn hospitalist physician Tobacco Use Cigarettes 06/27/24 09:22 Smoking Status Former smoker 07/11/24 14:14 Hx Tobacco Use No 07/11/24 14:14 Years Smoking Packs Smoked per Day Smoking Cessation Date was Yes - quit smoking within 15 07/11/24 14:14 within the last 15 years years Hx Smoking Cessation Date 03/08/12 07/11/24 14:14 Hx Smoking Cessation No 07/11/24 14:14 Counseling Hematologic Medial History Hematologic Hx - obgyn hospitalist physician: Hematologic Medical Hx - certified physical therapist assistant Hx of Blood Transfusion No 07/11/24 14:14 Hx of Transfusion in last 3 No 07/11/24 14:14 Months Date of Last Transfusion (if within last 3 months) Ever experience any problems No 07/11/24 14:14 with transfusion(s)? Specify any problems Hx of Preganancy in last 3 No 07/11/24 14:14 Months Nurse Filling Out Transfusion [facility] 07/11/24 14:14 & Questions: Date: 07/11/24 07/11/24 14:14 Time: 14:17 07/11/24 14:14 Patient unable to answer at this time (ie. confused, unrespo /Reproduction History /Reproductive History - obgyn hospitalist physician: /Reproductive Hx- obgyn hospitalist physician Hx Now No 07/11/24 14:14 Gestational Age (in weeks): EDC: Hx Hx Para Hx Section SAB No 06/27/24 09:22 Active Medications Active Medications: Current Medications Generic Name Dose Route Start Last Admin Trade Name Freq PRN Reason Stop Dose Admin Lactated Ringer's 1,000 mls @ 15 mls/hr 07/25/24 05:45 07/25/24 06:36 IV 15 mls/hr .Q48H KIRSTEN Administration Clindamycin Phosphate 900 mg in 50 mls @ 75 mls/hr 07/25/24 06:36 Cleocin IV 07/25/24 07:15 X1 ONE PFSH Medical History History of stress test Immunity status testing Chronic kidney disease, stage 3b History of CAD (coronary artery disease) History of chronic kidney disease History of diabetes mellitus CAD (coronary artery disease) Dehydration Falls Hypoxic respiratory failure Hypercapnic respiratory failure Fatigue Low back pain Abnormality of gait and mobility Polyneuropathy Insulin pump titration Presence of insulin pump Health care maintenance Essential tremor Dementia History of stress test Fungal dermatitis Herpes genitalia Encounter for insertion of venous access port Post-menopausal Rash Back pain Arthritis Ambulates with cane History of renal disease High cholesterol Dietary restriction History of pain when walking History of echocardiogram Chronic kidney disease (CKD) stage G4/A2, severely decreased glomerular filtration rate (GFR) between 15-29 mL/min/1.73 square meter and albuminuria creatinine ratio between 30-299 mg/g Chronic kidney disease (CKD) stage G4/A1, severely decreased glomerular filtration rate (GFR) between 15-29 mL/min/1.73 square meter and albuminuria creatinine ratio less than 30 mg/g Ingrown toenail Neuropathy Hyperglycemia due to diabetes mellitus Frequent falls Tremor Depression Chronic pain Rheumatoid arthritis Congestive heart failure (CHF) Lumbar spondylosis Greater trochanteric bursitis CKD (chronic kidney disease) stage 3, GFR 30-59 ml/min Malaise and fatigue Vitamin B12 deficiency History of CAD (coronary artery disease) Memory loss Anxiety and depression Degenerative disc disease at L5-S1 level CAD (coronary artery disease) Cellulitis, abdominal wall Left shoulder pain Gastroparesis Vitamin D deficiency Acute kidney injury CKD (chronic kidney disease), stage IV High output ileostomy MGUS (monoclonal gammopathy of unknown significance) Elevated anti-tissue transglutaminase (tTG) IgA level Ileostomy present Short bowel syndrome Loss of hearing Wears glasses History of COVID-19 Anxiety Insulin dependent diabetes mellitus Walker as ambulation aid Fatty liver Migraine headache Hx of diabetic gastroparesis Gastric reflux Former smoker BiPAP (biphasic positive airway pressure) dependence Hypertension Cardiology follow-up encounter Myoclonic jerking Chronic narcotic use Avascular necrosis of bone of left hip Chronic back pain Non-alcoholic fatty liver disease Liver mass Ulcerative colitis Nonalcoholic steatohepatitis Chronic respiratory failure Smoking greater than 20 pack years Obesity Chronic respiratory failure with hypoxia, on home O2 therapy Diabetic gastroparesis Secondary pulmonary arterial hypertension Chronic diastolic (congestive) heart failure Type 2 diabetes mellitus with diabetic polyneuropathy BMI 31.0-31.9,adult Depression with anxiety Arthritis Menieres disease Hyperlipidemia Psoriasis Obstructive sleep apnea COPD (chronic obstructive pulmonary disease) FCHL (familial combined hyperlipidemia) DM2 (diabetes mellitus, type 2) Home Medications ?Medication ?Instructions ?Recorded ?Last Taken ?Type cyclobenzaprine 10 mg tablet 10 mg PO TID PRN muscle s pasm #30 02/24/23 07/23/24 Rx tabs diphenoxylate-atropine 2.5 1 tab PO TID PRN diarrhea 0 06/21/23 09/04/23 History mg-0.025 mg tablet (Lomotil) isosorbide dinitrate 30 mg tablet 30 mg PO BID heart # 60 tabs 12/08/23 07/24/24 Rx hyoscyamine sulfate 0.125 mg tablet 0.125 mg PO BID-QI D PRN dyspepsia 12/23/23 07/18/24 History fluticasone propionate 50 2 spray intranasal DAILY all ergies 01/04/24 07/24/24 Rx mcg/actuation nasal #16 grams spray,suspension (Flonase Allergy Relief) clopidogrel 75 mg tablet 75 mg PO DAILY anti platelet #28 02/02/24 07/24/24 Rx TABLETS triamcinolone acetonide 0.1 % 1 applic topical DAILY P RN 02/17/24 07/24/24 History topical ointment psoriasis aspirin 81 mg tablet,delayed 81 mg PO DAILY heart heal th #30 02/24/24 07/24/24 Rx release tabs nitroglycerin 0.4 mg sublingual 0.4 mg sublingual Q5-1 5M PRN chest 02/24/24 Unknown Rx tablet pain #25 tabs evolocumab 140 mg/mL subcutaneous 140 mg subcut Q2W #6 mL 02/29/24 07/22/24 Rx pen injector (Repatha SureClick) insulin pump cart,auto,BT,G6/7 #45 ea 03/10/24 Unknown Rx (Omnipod 5 G6-G7 Pods (Gen 5) subcutaneous cartridge) dicyclomine 10 mg capsule 10 mg PO BID PRN stomach 06/3007/23/24 History pantoprazole 40 mg tablet,delayed 40 mg PO BID GERD #6 0 tabs 03/29/24 07/24/24 Rx release (Protonix) cholecalciferol (vitamin D3) 1,250 1,250 mcg PO .month ly vit #14 caps 04/05/24 Unknown Rx mcg (50,000 unit) capsule insulin lispro 200 unit/mL (3 mL) 180 unit (0.9 mL) lee bcut QDAY 04/11/24 Unknown Rx subcutaneous pen (Humalog KwikPen diabetes #81 mL U-200 Insulin) buprenorphine 10 mcg/hour weekly 1 patch transdermal Q 7D 04/24/24 07/22/24 History transdermal patch (Butrans) albuterol sulfate 90 mcg/actuation 2 puff inhalation Q 4-6H PRN SOB 04/26/24 Unknown Rx aerosol inhaler #8.5 grams hydroxyzine HCl 25 mg tablet 25 mg PO TID PRN anxiety #90 tabs 04/26/24 Unknown Rx duloxetine 60 mg capsule,delayed 60 mg PO BID mental h ealth #60 caps 05/09/24 07/24/24 Rx release lamotrigine 200 mg tablet 200 mg PO DAILY mood 30 day s #30 05/09/24 07/24/24 Rx tabs mirtazapine 7.5 mg tablet 7.5 mg PO QHS mental health #30 05/09/24 07/24/24 Rx tabs amlodipine 5 mg tablet 5 mg PO QDAY #30 tabs 07/24/24 Rx galantamine 16 mg 24 hr 16 mg PO QAM #30 caps 07/24/24 Rx capsule,extended release primidone 50 mg tablet 50 mg PO BID #60 tabs 07/24/24 Rx rimegepant 75 mg disintegrating 75 mg PO DAILY PRN jose ramon evelyn 06/03/24 07/11/24 Rx tablet (Nurtec ODT) headache #16 tabs Dexcom G7 Sensor (blood-glucose #9 ea 06/13/24 Unknown Rx sensor) metoprolol tartrate 25 mg tablet 25 mg PO BID #180 tab s 06/14/24 07/24/24 Rx metoprolol tartrate 50 mg tablet 50 mg PO BID #180 tab s 06/14/24 07/24/24 Rx pregabalin 75 mg capsule 75 mg PO DAILY pain #30 caps 06/16/24 07/24/24 Rx atorvastatin 80 mg tablet 80 mg PO QHS CHOLESTEROL LOW ERING 06/21/24 07/24/24 Rx #90 tabs valacyclovir 500 mg tablet 500 mg PO Q12H PRN HSV 08/3007/11/24 History Allergy/AdvReac Type Severity Reaction Status Date / Time cinnamon (Cinnamon) Allergy Severe Anaphylaxis Verified 07/25/24 05:54 Influenza Virus Vaccines Allergy Severe Shortness Verified 07/25/24 05:54 of breath liraglutide (From Victoza) Allergy Severe Anaphylaxis Verified 07/25/24 05:54 ciprofloxacin Allergy Intermediate Swelling Verified 07/25/24 05:54 metformin (From Glucophage) Allergy Mild Nausea Verified 07/25/24 05:54 metronidazole (From Flagyl) Allergy Hives Verified 07/25/24 05:54 Metronidazole HCl (From Allergy Hives Verified 07/25/24 05:54 Flagyl) Penicillins Allergy Hives Verified 07/25/24 05:54 Sulfa (Sulfonamide Allergy Hives Verified 07/25/24 05:54 Antibiotics) ranolazine AdvReac Nausea/Vom/ Verified 07/25/24 05:54 Diarrhea Vprxpiz-[id number]-BzU Reductase AdvReac Nausea/joints Verified 07/25/24 05:54 Inhibitor (Heyekkr-Uon-Bxr ache Reductase Inhibitor) Family History Mother CVA (cerebral vascular accident) Diabetes Brother Heart disease of CAD at 65 Myocardial infarction Pancreatitis Father Cancer lymphomia Lymphoma Grandmother Myocardial infarction of [place] in her 70s Sister COPD (chronic obstructive pulmonary disease) Surgical History History of vascular access device History of colonoscopy History of esophagogastroduodenoscopy (EGD) History of appendectomy History of coronary artery stent placement H/O total hip arthroplasty Status post total hip replacement, left History of cardiac catheterization History of History of cholecystectomy H/O coronary artery bypass surgery (05/18/12) History of coronary artery stent placement (01/12/18) H/O sinus surgery history closed fissure Ileostomy status H/O colectomy left thumb surgery H/O total hysterectomy ileostomy Social History household members: spouse and none Smoking Status: Former smoker quit date: 03/08/12 how long ago did patient quit smoking: quit in 2012; 0.5-1ppd x 30yrs alcohol intake: never substance use type: does not use diet: diabetic caffeine: No eating out: 1-3 times/week what type of physical activity do you participate in: none seatbelt use: always do you feel safe at home: Yes Review of Systems (Anesthesia) ROS Narrative System reviewed and no additional complaints, except as documented.
[2024-07-25] MEDS: Ipratropium/Albuterol Sulfate 3 ML AMPUL.NEB INHALATION (06:57)
[2024-07-25] MEDS: Insulin Lispro 100 UNIT/ML INSULN.PEN SC ×4 (06:59→21:36)
--- NOTE | 2024-07-25 07:40 | PCM.HP.STD ---
HPI - General HPI Narrative ASHLEY MÉNDEZ, is a 64 F who presents with asymptomatic right carotid stenosis that has progressed on recent surveillance imaging. Her anatomy is amenable to TCAR so she presents now for elective carotid stent placement. [facility] Medical History History of stress test Immunity status testing Chronic kidney disease, stage 3b History of CAD (coronary artery disease) History of chronic kidney disease History of diabetes mellitus CAD (coronary artery disease) Dehydration Falls Hypoxic respiratory failure Hypercapnic respiratory failure Fatigue Low back pain Abnormality of gait and mobility Polyneuropathy Insulin pump titration Presence of insulin pump Health care maintenance Essential tremor Dementia History of stress test Fungal dermatitis Herpes genitalia Encounter for insertion of venous access port Post-menopausal Rash Back pain Arthritis Ambulates with cane History of renal disease High cholesterol Dietary restriction History of pain when walking History of echocardiogram Chronic kidney disease (CKD) stage G4/A2, severely decreased glomerular filtration rate (GFR) between 15-29 mL/min/1.73 square meter and albuminuria creatinine ratio between 30-299 mg/g Chronic kidney disease (CKD) stage G4/A1, severely decreased glomerular filtration rate (GFR) between 15-29 mL/min/1.73 square meter and albuminuria creatinine ratio less than 30 mg/g Ingrown toenail Neuropathy Hyperglycemia due to diabetes mellitus Frequent falls Tremor Depression Chronic pain Rheumatoid arthritis Congestive heart failure (CHF) Lumbar spondylosis Greater trochanteric bursitis CKD (chronic kidney disease) stage 3, GFR 30-59 ml/min Malaise and fatigue Vitamin B12 deficiency History of CAD (coronary artery disease) Memory loss Anxiety and depression Degenerative disc disease at L5-S1 level CAD (coronary artery disease) Cellulitis, abdominal wall Left shoulder pain Gastroparesis Vitamin D deficiency Acute kidney injury CKD (chronic kidney disease), stage IV High output ileostomy MGUS (monoclonal gammopathy of unknown significance) Elevated anti-tissue transglutaminase (tTG) IgA level Ileostomy present Short bowel syndrome Loss of hearing Wears glasses History of COVID-19 Anxiety Insulin dependent diabetes mellitus Walker as ambulation aid Fatty liver Migraine headache Hx of diabetic gastroparesis Gastric reflux Former smoker BiPAP (biphasic positive airway pressure) dependence Hypertension Cardiology follow-up encounter Myoclonic jerking Chronic narcotic use Avascular necrosis of bone of left hip Chronic back pain Non-alcoholic fatty liver disease Liver mass Ulcerative colitis Nonalcoholic steatohepatitis Chronic respiratory failure Smoking greater than 20 pack years Obesity Chronic respiratory failure with hypoxia, on home O2 therapy Diabetic gastroparesis Secondary pulmonary arterial hypertension Chronic diastolic (congestive) heart failure Type 2 diabetes mellitus with diabetic polyneuropathy BMI 31.0-31.9,adult Depression with anxiety Arthritis Menieres disease Hyperlipidemia Psoriasis Obstructive sleep apnea COPD (chronic obstructive pulmonary disease) FCHL (familial combined hyperlipidemia) DM2 (diabetes mellitus, type 2) Home Medications ?Medication ?Instructions ?Recorded ?Last Taken ?Type cyclobenzaprine 10 mg tablet 10 mg PO TID PRN muscle spasm #30 02/24/23 07/23/24 Rx tabs diphenoxylate-atropine 2.5 1 tab PO TID PRN diarrhea 06/21/23 09/04/23 History mg-0.025 mg tablet (Lomotil) isosorbide dinitrate 30 mg tablet 30 mg PO BID heart #60 tabs 12/08/23 07/24/24 Rx hyoscyamine sulfate 0.125 mg tablet 0.125 mg PO BID-QID PRN dyspepsia 12/23/23 07/18/24 History fluticasone propionate 50 2 spray intranasal DAILY allergies 01/04/24 07/24/24 Rx mcg/actuation nasal #16 grams spray,suspension (Flonase Allergy Relief) clopidogrel 75 mg tablet 75 mg PO DAILY anti platelet #28 02/02/24 07/24/24 Rx TABLETS triamcinolone acetonide 0.1 % 1 applic topical DAILY PRN 02/17/24 07/24/24 History topical ointment psoriasis aspirin 81 mg tablet,delayed 81 mg PO DAILY heart health #30 02/24/24 07/24/24 Rx release tabs nitroglycerin 0.4 mg sublingual 0.4 mg sublingual Q5-15M PRN chest 02/24/24 Unknown Rx tablet pain #25 tabs evolocumab 140 mg/mL subcutaneous 140 mg subcut Q2W #6 mL 02/29/24 07/22/24 Rx pen injector (Repatha SureClick) insulin pump cart,auto,BT,G6/7 #45 ea 03/10/24 Unknown Rx (Omnipod 5 G6-G7 Pods (Gen 5) subcutaneous cartridge) dicyclomine 10 mg capsule 10 mg PO BID PRN stomach 03/11/24 07/23/24 History pantoprazole 40 mg tablet,delayed 40 mg PO BID GERD #60 tabs 03/29/24 07/24/24 Rx release (Protonix) cholecalciferol (vitamin D3) 1,250 1,250 mcg PO .monthly vit #14 caps 04/05/24 Unknown Rx mcg (50,000 unit) capsule insulin lispro 200 unit/mL (3 mL) 180 unit (0.9 mL) subcut QDAY 04/11/24 Unknown Rx subcutaneous pen (Humalog KwikPen diabetes #81 mL U-200 Insulin) buprenorphine 10 mcg/hour weekly 1 patch transdermal Q7D 04/24/24 07/22/24 History transdermal patch (Butrans) albuterol sulfate 90 mcg/actuation 2 puff inhalation Q4-6H PRN SOB 04/26/24 Unknown Rx aerosol inhaler #8.5 grams hydroxyzine HCl 25 mg tablet 25 mg PO TID PRN anxiety #90 tabs 04/26/24 Unknown Rx duloxetine 60 mg capsule,delayed 60 mg PO BID mental health #60 caps 05/09/24 07/24/24 Rx release lamotrigine 200 mg tablet 200 mg PO DAILY mood 30 days #30 05/09/24 07/24/24 Rx tabs mirtazapine 7.5 mg tablet 7.5 mg PO QHS mental health #30 05/09/24 07/24/24 Rx tabs amlodipine 5 mg tablet 5 mg PO QDAY #30 tabs 05/15/24 07/24/24 Rx galantamine 16 mg 24 hr 16 mg PO QAM #30 caps 06/03/24 07/24/24 Rx capsule,extended release primidone 50 mg tablet 50 mg PO BID #60 tabs 06/03/24 07/24/24 Rx rimegepant 75 mg disintegrating 75 mg PO DAILY PRN migraine 06/03/24 07/11/24 Rx tablet (Nurtec ODT) headache #16 tabs Dexcom G7 Sensor (blood-glucose #9 ea 06/13/24 Unknown Rx sensor) metoprolol tartrate 25 mg tablet 25 mg PO BID #180 tabs 06/14/24 07/24/24 Rx metoprolol tartrate 50 mg tablet 50 mg PO BID #180 tabs 06/14/24 07/24/24 Rx pregabalin 75 mg capsule 75 mg PO DAILY pain #30 caps 06/16/24 07/24/24 Rx atorvastatin 80 mg tablet 80 mg PO QHS CHOLESTEROL LOWERING 06/21/24 07/24/24 Rx #90 tabs valacyclovir 500 mg tablet 500 mg PO Q12H PRN HSV 07/11/24 07/11/24 History Allergy/AdvReac Type Severity Reaction Status Date / Time cinnamon (Cinnamon) Allergy Severe Anaphylaxis Verified 07/25/24 05:54 Influenza Virus Vaccines Allergy Severe Shortness Verified 07/25/24 05:54 of breath liraglutide (From Victoza) Allergy Severe Anaphylaxis Verified 07/25/24 05:54 ciprofloxacin Allergy Intermediate Swelling Verified 07/25/24 05:54 metformin (From Glucophage) Allergy Mild Nausea Verified 07/25/24 05:54 metronidazole (From Flagyl) Allergy Hives Verified 07/25/24 05:54 Metronidazole HCl (From Allergy Hives Verified 07/25/24 05:54 Flagyl) Penicillins Allergy Hives Verified 07/25/24 05:54 Sulfa (Sulfonamide Allergy Hives Verified 07/25/24 05:54 Antibiotics) ranolazine AdvReac Nausea/Vom/ Verified 07/25/24 05:54 Diarrhea Eqcmxwa-Ice-Nqt Reductase AdvReac Nausea/joints Verified 07/25/24 05:54 Inhibitor ache Family History Mother CVA (cerebral vascular accident) Diabetes Brother Heart disease of CAD at 65 Myocardial infarction Pancreatitis Father Cancer lymphomia Lymphoma Grandmother Myocardial infarction of [place] in her 70s Sister COPD (chronic obstructive pulmonary disease) Surgical History History of vascular access device History of colonoscopy History of esophagogastroduodenoscopy (EGD) History of appendectomy History of coronary artery stent placement H/O total hip arthroplasty Status post total hip replacement, left History of cardiac catheterization History of History of cholecystectomy H/O coronary artery bypass surgery (05/18/12) History of coronary artery stent placement (01/12/18) H/O sinus surgery history closed fissure Ileostomy status H/O colectomy left thumb surgery H/O total hysterectomy ileostomy Social History household members: spouse and none Smoking Status: Former smoker quit date: 03/08/12 how long ago did patient quit smoking: quit in 2013; 0.5-1ppd x 30yrs alcohol intake: never substance use type: does not use diet: diabetic caffeine: No eating out: 1-3 times/week what type of physical activity do you participate in: none seatbelt use: always do you feel safe at home: Yes ROS Constitutional Constitutional: Denies chills, fever(s), frequent falls, lethargy or weakness Eyes Eyes: Denies blind spots, change in vision or loss of vision ENT HEENT: Denies bleeding gums, hoarseness or sore throat Cardiovascular Cardiovascular: Denies abdominal pain, bluish discoloration of hand/feet, chest pain with activity, claudication, cold extremities, cyanosis, dyspnea on exertion, erythema on extremities, irregular heart rhythm, leg edema, leg ulcers, numbness in extremities or weakness in extremities Respiratory/Chest Respiratory/Chest: Denies cough, excessive phlegm production, shortness of breath at rest, shortness of breath with exertion or wheezing Gastrointestinal Gastrointestinal: Denies anorexia, change in stool character, constipation, diarrhea, melena or rectal bleeding Genitourinary Genitourinary: Denies dysuria or hematuria Musculoskeletal Musculoskeletal: Denies abnormal gait Integumentary Integumentary: Reports other Details: ; Denies erythema, non-healing lesions or wounds Neurologic Neurologic: Denies abnormal speech, focal weakness, headache(s), loss of vision, numbness, paresthesias or sensory deficit Hematologic/Lymphatic Hematologic/Lymphatic: Denies easy bleeding, easy bruising or lymphadenopathy Vital Signs Vital Signs Vital Signs: 07/25/24 06:31 07/25/24 06:31 07/25/24 06:49 Temperature 98.3 F 98.3 F Temperature Source Temporal Pulse Rate 72 72 Respiratory Rate 18 18 Respiratory Pattern Normal Blood Pressure 138/62 H 138/62 H Blood Pressure Mean 87 Blood Pressure Source Monitor Blood Pressure Position Semi-Fowlers Blood Pressure Location Left Arm Pulse Ox 92 92 Oxygen Delivery Method Nasal Cannula Weight Weight: 216 lb 0.848 oz Body Mass Index (BMI) 33.8 Physical Exam Const alert, oriented x3, no apparent distress and healthy appearing General Appearance: cooperative; Negative for combative or lethargic Orientation / Consciousness: awake Exam Limitations: no limitations HEENT Head and Scalp: normocephalic and atraumatic Eyes EOMs intact bilaterally General Eye: normal appearance of both eyes Neck full ROM General: trachea midline; Negative for tenderness Resp normal respiratory effort and no use of accessory muscles Effort and Inspection: Negative for labored, stridor or audible wheezes Cardio regular rate and regular rhythm Back/Spine Cervical Spine: cervical ROM normal Extremity full ROM, normal capillary refill and no clubbing, cyanosis or edema Skin no rashes or lesions noted and no wounds Neuro oriented x3, CN's II-XII intact bilaterally, no focal motor deficits and no sensory deficits noted Psych thought process normal, cooperative, affect normal, speech normal and activity/motor behavior normal Results Lab / Micro Data Labs: Laboratory Results - last 24 hr 07/25/24 05:58: POC Glucose 344 H Assessment & Plan Assessment/Plan (1) Stenosis of right internal carotid artery: PLAN: -TCAR
[2024-07-25 07:59] LABS: Bedside Glucose 299 mg/dL (74-106)
[2024-07-25 09:42] LABS: Hemoglobin A1c 8.8 % (<=5.6)
[2024-07-25 09:47] LABS: ACT Activated Clotting Time 406 sec (74-137)
[2024-07-25 09:47] LABS: ACT Activated Clotting Time 147 sec (74-137)
--- NOTE | 2024-07-25 09:54 | PCM.OPRPT ---
Operative Report (Standard) Operative Information Date of Procedure: 07/25/24 Pre-Operative Diagnosis: right carotid stenosis Post-Operative Diagnosis: same Surgery/Procedure Performed: right carotid stent learning development specialist: Yes Sales Analyst: Mena Vanegas Tasks completed by first aid officer: Opening, Closing, Opening & closing, Hemostasis: Tie and Retracting Type of Anesthesia: General RN Documented Start/Stop Times: Operation Date: 07/25/24 07:15 Case Time Into Pre-Op 07/25/24 05:37 Into Recovery 07/25/24 10:09 Out of Recovery 07/25/24 11:35 Procedure Start Time: 08:30 Procedure Stop Time: 09:45 Select all DRAINS/GRAFTS/IMPLANTS that apply: Implanted device Implanted device details: 8-6 x 40 En Route Estimated Blood Loss: 16 Specimen collected: No Description of surgery: HPI: Patient is a 64-year-old female with severe right internal carotid artery stenosis which is asymptomatic in nature. She had prior imaging which revealed this was amenable to carotid stenting and she has difficult neck anatomy. She presents now for transcarotid artery stenting. Description of procedure: Upon obtaining informed consent and verification correct patient procedure and site the patient was taken to the [facility] where she was placed under general anesthesia. She was then positioned prepped and draped in usual sterile fashion and timeout performed. Ultrasound was used to evaluate the position of the common carotid artery and transverse incision made 1 fingerbreadth superior to the clavicle. Bovie electrocautery was used to dissect through the subcutaneous tissue to the level the platysma which was then divided and self-retaining retractor put in position. Further dissection was then carried down to the sternocleidomastoid which was split between the sternal and clavicular heads and self-retaining retractors moved deeper into the wound. Further dissection was carried down to the carotid sheath and once the jugular vein was identified sharp dissection used to dissect free the vein along its anterior border with sidebranches ligated with silk ties and divided. The jugular vein was then retracted laterally exposing the common carotid artery and sharp dissection was used to dissect free the vessel proximally with care taken to identify and protect the vagus nerve. A right angle was used to place a vessel loop proximally and the patient was in heparinized allowed to circulate for 3 minutes with subsequent heparin dosing based on ACT results. A 5-0 Prolene pursestring suture was then placed at the intended access site we then turned our attention to the venous access. Under ultrasound guidance the right common femoral vein was accessed with a micropuncture needle wire was exchanged for micropuncture sheath. Through the micropuncture sheath a J-wire was advanced and the micropuncture sheath exchanged for the 8 English venous return sheath. Next a micropuncture needle and wire were used to access the common carotid artery in antegrade fashion and then exchanged for micropuncture sheath. Through this a hand-injection subtraction angiography of the carotid vessels was performed revealing satisfactory positioning with no extravasation or dissection. Through the micropuncture sheath a J-wire was advanced stopping short of the carotid bifurcation and the micropuncture sheath exchanged for the arterial flow reversal sheath which was advanced without resistance. The flow reversal tubing was then attached and adequate flow reversal confirmed. Next the common carotid artery was occluded with vessel loop and flow reversal reconfirmed. Multiple oblique view subtraction angiography images were then obtained confirming satisfactory sheath tip positioning and used to sonia the trajectory of the internal carotid artery. Using the [employer] 014 wire we then navigated the lesion and into the distal internal carotid artery. A RxApps angioplasty balloon 4.5 x 25 was advanced centered on the lesion and inflated to nominal for 20 seconds then deflated and withdrawn. Next a tapered en route stent 8 to 6 x 40 was advanced into position centered at the lesion and then deployed. 2 minutes of flow reversal was then performed and repeat imaging revealed satisfactory stent placement no extravasation or dissection and no plaque prolapse. There also was no significant stenosis remaining and there was adequate stent expansion. The vessel loop was then released and additional minute of flow reversal performed after which the flow reversal tubing was detached and blood return via the venous sheath. The venous femoral sheath was then withdrawn a minute pressure held for 10 minutes until hemostasis was obtained. The carotid sheath was then withdrawn and the pursestring suture secured with satisfactory hemostasis noted. Heparin was then reversed with protamine and the incision inspected for hemostasis. Fatou topical hemostatic was then applied and 19 English channel KIMBERLY placed via separate stab incision. The incision was then closed with 3-0 Vicryl, 4-0 Monocryl and Dermabond for the skin. The patient was then awakened from anesthesia moving all extremities to command with cranial nerves intact. The patient was then taken to the recovery room with anticipated admission to the intensive care unit for hemodynamic and neurologic monitoring. Surgical Findings: see above Complications Complications: No
[2024-07-25 10:02] LABS: Bedside Glucose 270 mg/dL (74-106)
--- NOTE | 2024-07-25 10:18 | PCM.POST.ANE ---
Anesthesia: Postop Eval I Current Vital Signs Temperature: 97 F Pulse Rate: 65 Blood Pressure: 156/58 (trell) Respiratory Rate: 18 Pulse Ox: 100 (2L O2 nasal cannula) Assessment Airway patent: Yes Spontaneous unlabored respirations: Yes nausea: No Vomiting: No Anesthesia Complication: No Fluid Hydration Crystalloid volume administer (ml): 1,000 Total IV fluid infused: 1,000 Progress Note Anesthesia document: Postop Eval 1 completed: Yes
[2024-07-25] MEDS: Phenylephrine 10 MG in 0.9% Normal Saline (250mL Bag) 249 ML 15 MG CONT INF ×2 (10:40→23:57)
--- NOTE | 2024-07-25 11:03 | POSTOPAN2_ITS ---
Anesthesia Postop Eval I Sum Postop Eval Completion status Anesthesia document: Postop Eval 1 completed: Yes Anesthesia Postop Eval I Summary Anesthesia Postop Eval I Summary: Anesthesia Postop Eval I: Assessment Summary Airway patent Yes 07/25/24 10:31 RADIO HOST.CSIR Spontaneous unlabored Yes 07/25/24 10:31 RADIO HOST.CSIR respirations Mental status nausea No 07/25/24 10:31 RADIO HOST.CSIR Vomiting No 07/25/24 10:31 RADIO HOST.CSIR Anesthesia Postop Eval I: Fluid Summary Crystalloid volume administer 1,000 07/25/24 10:31 RADIO HOST.CSIR (ml) Colloids volume administered ( ml) Blood Product volume administered (ml) Total IV fluid infused 1,000 07/25/24 10:31 RADIO HOST.CSIR Anesthesia Postop Eval I: Summary Notes Anesthesia Complication No 07/25/24 10:31 RADIO HOST.CSIR Anesthesia Complication Comment: Post-operative progress note Anesthesia: Postop Eval II Evaluation Mental status: Awake and Calm Pain Level: 3 nausea: No Vomiting: No
--- NOTE | 2024-07-25 11:03 | PCM.POSTANE2 ---
Anesthesia Postop Eval I Sum Postop Eval Completion status Anesthesia document: Postop Eval 1 completed: Yes Anesthesia Postop Eval I Summary Anesthesia Postop Eval I Summary: Anesthesia Postop Eval I: Assessment Summary Airway patent Yes 07/25/24 10:31 PHYSICIAN [email or web address].CSIR Spontaneous unlabored Yes 07/25/24 10:31 PHYSICIAN INDUSTRIAL.CSIR respirations Mental status nausea No 07/25/24 10:31 PHYSICIAN INDUSTRIAL.CSIR Vomiting No 07/25/24 10:31 PHYSICIAN INDUSTRIAL.CSIR Anesthesia Postop Eval I: Fluid Summary Crystalloid volume administer 1,000 07/25/24 10:31 PHYSICIAN INDUSTRIAL.CSIR (ml) Colloids volume administered ( ml) Blood Product volume administered (ml) Total IV fluid infused 1,000 07/25/24 10:31 PHYSICIAN INDUSTRIAL.CSIR Anesthesia Postop Eval I: Summary Notes Anesthesia Complication No 07/25/24 10:31 PHYSICIAN INDUSTRIAL.CSIR Anesthesia Complication Comment: Post-operative progress note Anesthesia: Postop Eval II Evaluation Mental status: Awake and Calm Pain Level: 3 nausea: No Vomiting: No
[2024-07-25 12:00] LABS: Bedside Glucose 273 mg/dL (74-106)
[2024-07-25 12:52] LABS: Bedside Glucose 262 mg/dL (74-106)
[2024-07-25] MEDS: Fluticasone 0.05% 1 SPRAY NASAL.SRY 2 SPRAY NASAL (13:29)
[2024-07-25] MEDS: lamoTRIgine 100 MG Tablet 200 MG PO (13:30)
[2024-07-25] MEDS: Pantoprazole Sodium 40 MG Tablet PO ×2 (13:31→21:37)
[2024-07-25] MEDS: DULoxetine Hcl 60 MG Capsule PO ×2 (13:31→21:38)
[2024-07-25] MEDS: Pregabalin 75 MG Capsule PO (13:31)
[2024-07-25] MEDS: oxyCODONE 5 MG Tablet PO ×2 (13:31→21:33)
[2024-07-25] MEDS: Galantamine Hydrobromide 4 MG Tablet 8 MG PO ×2 (13:31→21:37)
[2024-07-25] MEDS: Acetaminophen 500 MG Tablet 1000 MG PO ×2 (13:33→21:36)
[2024-07-25] MEDS: Primidone 50 MG Tablet PO ×2 (13:33→21:38)
[2024-07-25] MEDS: 0.9% Normal Saline (250mL Bag) 250 ML 15 ML IV (13:35)
[2024-07-25] MEDS: Clindamycin 900 MG/50 ML BAG 75 MG IV ×2 (13:39→21:34)
[2024-07-25] MEDS: 0.9% Saline Lock 10 ML Syringe IV (13:41)
[2024-07-25 16:48] LABS: Bedside Glucose 228 mg/dL (74-106)
[2024-07-25] MEDS: Atorvastatin Calcium 80 MG Tablet PO (21:38)
[2024-07-25] MEDS: Mirtazapine 15 MG Tablet 7.5 MG PO (21:38)
[2024-07-25 22:04] LABS: Bedside Glucose 157 mg/dL (74-106)
[2024-07-26] VITALS (46 sets, daily range): BP systolic 75–164; BP diastolic 38–75; PULSE 67–95; RESP 13–27; TEMP 36.6; O2SAT 90–100; BMI 34.5
[2024-07-26] MEDS: oxyCODONE 5 MG Tablet PO ×2 (03:07→19:49)
[2024-07-26 03:15] LABS: Absolute Lymphocyte Count 2.22 X10^3/uL (0.83-4.51); Absolute Neutrophil Count 4.5 X10^3/uL (2.0-7.7); Basophil# 0.05 X10^3/uL; Basophil% 0.6 % (0-1); Eosinophil# 0.53 X10^3/uL; Eosinophils% 6.7 % (0-5); Hematocrit 30.3 % (37-47); Hemoglobin 9.6 g/dL (12.0-15.0); Lymphocyte # 2.22 X10^3/ul (0.83-4.51); Lymphocyte % 27.9 % (19-41); Mean Corp Hgb Conc 31.7 g/dL (32-36); Mean Corpuscular Hgb 28.5 pg (27.0-32.0); Mean Corpuscular Volume 89.9 fL (81-99); Mean Platelet Vol. 11.6 fl (6.2-12.0); Monocyte# 0.55 X10^3/uL; Monocyte% 6.9 % (0-10); NRBC Flagged by Analyzer 0 % (0-5); Neutrophil # 4.51 X10^3/uL (2.7-7.7); Neutrophil % 56.8 % (47-70); Platelet Count 162 K/mm3 (150-450); RBC Distribution Width CV 15.8 % (11.6-14.6); Red Blood Count 3.37 M/mm3 (4.2-5.4)
[2024-07-26] MEDS: Acetaminophen 500 MG Tablet 1000 MG PO ×3 (05:56→22:19)
[2024-07-26] MEDS: TITRATION PARAMETER CHANGE 1 EACH IV (05:56)
[2024-07-26] MEDS: Galantamine Hydrobromide 4 MG Tablet 8 MG PO ×2 (08:22→22:19)
[2024-07-26] MEDS: Aspirin E.C. 81 MG Tablet PO (08:22)
[2024-07-26] MEDS: Pantoprazole Sodium 40 MG Tablet PO ×2 (08:22→22:18)
[2024-07-26] MEDS: Clopidogrel Bisulfate 75 MG Tablet PO (08:22)
[2024-07-26] MEDS: Enoxaparin 40 MG/0.4 ML Syringe SC (08:22)
[2024-07-26] MEDS: DULoxetine Hcl 60 MG Capsule PO ×2 (08:22→22:21)
[2024-07-26] MEDS: Fluticasone 0.05% 1 SPRAY NASAL.SRY 2 SPRAY NASAL (08:23)
[2024-07-26] MEDS: lamoTRIgine 100 MG Tablet 200 MG PO (08:23)
[2024-07-26] MEDS: Primidone 50 MG Tablet PO ×2 (08:23→22:19)
[2024-07-26] MEDS: Insulin Lispro 100 UNIT/ML INSULN.PEN SC ×4 (08:28→22:19)
[2024-07-26] MEDS: Pregabalin 75 MG Capsule PO (08:28)
--- NOTE | 2024-07-26 09:41 | CASEMGMT ---
RN REDD Assessment Face to Face with patient for initial transition planning/care coordination assessment. RN REDD introduced self and role at [facility], pt voices understanding. Pt is A&Ox4 and is resting comfortably in bed and is calm. Pt's SO at bedside. Care providers, pharmacy, and demographics verified. Admitting dx: Rt Carotid Stenting LACE Strata: 3 PCP: [facility] Specialists: RENNY, Argelia [facility], (Endo), Sina (GI), Kendrick (Neuro), Jenn (Oncology), Jacky (Nephro), Janice (Ortho Surgeon) Preferred Pharmacy: [facility] Insurance: [employer], KENIA/[employer] Prescription Benefit: Yes LNOK: Azucena Borrero (SO of 21 years) Living Arrangements: Pt lives alone currently as her SO is living with her father to help care for him. Pt lives in a ground level apartment with a flat entrance. Azucena reports that she only lives 5 minutes away ADLs/IADLs: Pt reports that she tries to remain as independent as possible. However, pt has knee issues and has had recent falls at home. Azucena states that she is able to assist the pt as needed. Transportation: Self, SO DME: Medical alert system, FWW, WC, Shower bench, grab bars, cane, CBGM with sensors, insulin pump, backup BGM with sufficient supplies, and home oxygen through [employer]. Email sent to Laci for current order verification. Pt states that she has a concentrator, portability that Azucena can bring in, pulse ox, and inhaler. HHC/SNF: Reports HH history through a couple different agencies but states that she did not feel like it helped and denies current HH needs. Pt has a history at [facility]. Pt?s goal: Return home [facility]. Pt requesting to go home today. Plan: Anticipate DC home with the support of the pt's SO once medically ready. Follow for updated oxygen needs. Per ICU rounds, pt's BP has been running low and this will need to be corrected prior to DC. PT is ordered and pending. At this time, the pt denies skilled HH needs (See above). Pt also denies wanting to review a private duty aid list as she states that she cannot afford. Pt denies SNF needs and wants to go home. This SVETALNA RAINEY inquired about OP therapy. Pt states that she does not want this now but may attend in the future. Pt states that she plans to follow up with Dr Camacho later this week regarding her knee issues. Pt states that she may go to OP therapy subsequently. Pt is aware that her PCP can also provide an OP therapy Rx. Pt states understanding, thanks this SVETLANA RAINEY, and denies further questions or concerns at this time. Parminder Cr RN, CM
--- NOTE | 2024-07-26 09:45 | NURSING ---
0915- attempted to wean patient to room air. O2 sats continued to drop to 87-88%, placed back on 2L NC
[2024-07-26 11:41] LABS: Bedside Glucose 220 mg/dL (74-106)
[2024-07-26 12:35] LABS: Bedside Glucose 278 mg/dL (74-106)
--- NOTE | 2024-07-26 14:52 | CT_ITS ---
PROCEDURE: SOFT TISSUE NECK WITHOUT CONTR 07/26/2024 REASON FOR EXAM: NECK PAIN S/P CAROTID SURGERY, EVAL FOR HEMATOMA TECHNIQUE: CT of the soft tissues of the neck from the orbits to the upper mediastinum with intravenous contrast. One or more dose reduction techniques were used (e.g., Automated exposure control, adjustment of the mA and/or kV according to patient size, use of iterative reconstruction technique). RADIATION DOSE SUMMARY: CTDlvol: 18.9 mGy DLP: 641 mGycm COMPARISON: CT head 07/26/2024 FINDINGS: Airway: Midline and patent. Salivary glands: Unremarkable. Lymph nodes: No cervical lymphadenopathy. Thyroid: Unremarkable. Vasculature: There is a stent within the right common carotid artery, with extension to the origin of the internal carotid artery. There is slight narrowing of the stent at the carotid bifurcation, measuring 3 mm in diameter at this location. Atherosclerotic calcification at the left carotid bulb. Orbits: Unremarkable at visualized levels. Paranasal sinuses and mastoids: Mucosal thickening in the sphenoid sinus. Lung apices: Respiratory motion slightly limits evaluation. No focal consolidation. Upper mediastinum: Right chest port partially imaged. Aortic atherosclerosis. Bones: Postoperative changes of the right temporal bone. Median sternotomy wires partially imaged. Degenerative changes of the cervical spine. Soft tissues: Subcutaneous emphysema within the right anterior neck soft tissues and tracking deep to the right internal jugular vein. No well formed fluid collection or large hematoma. CT/Soft Tissue Neck without Contr IMPRESSION: 1. Subcutaneous emphysema within the right anterior neck, likely postprocedura l. No significant hematoma formation. 2. Stent within the right common carotid artery, with slight narrowing of the stent at the carotid bifurcation. Reading Location: [id number]
--- NOTE | 2024-07-26 14:52 | CT_ITS ---
PROCEDURE: BRAIN/HEAD WITHOUT CONTRAST 07/26/2024 REASON FOR EXAM: HEADACHE S/P CAROTID SURGERY, EVAL FOR HEMORRHAGE TECHNIQUE: Head CT without intravenous contrast. Coronal and Sagittal reconstruction series were provided. One or more dose reduction techniques were used (e.g., Automated exposure control, adjustment of the mA and/or kV according to patient size, use of iterative reconstruction technique. RADIATION DOSE SUMMARY: CTDlvol: 44.99 mGy DLP: 829.85 mGycm COMPARISON: None FINDINGS: Brain: Within normal limits for age CSF Spaces: Mild generalized cerebral atrophy Sinuses/Mastoids: Clear at visualized levels Bones: Unremarkable CT/Brain/Head without Contrast IMPRESSION: NO ACUTE FINDINGS Reading Location: [place] [address]
--- NOTE | 2024-07-26 16:24 | PN.SURG_ITS ---
Subjective Subjective I saw patient this morning at which time she had no complaints, just mild tenderness at the incision site and the groin puncture site. She has been neurologically stable without unilateral weakness/numbness/paresthesias, vision loss, facial droop, dysarthria. No headache this morning. She was still requiring pressor support for her low BPs this morning. This afternoon, she developed a moderate generalized headache, reported increase pain at the incision site, and reported double vision in her R eye at distance and wavy vision up close. I examined her again alongside Dr. Spencer. She had mild swelling around the incision site which was stable from this morning. There was minimal drainage on the bandage over the KIMBERLY drain site. Neuro exam was intact except for reported R eye visual changes. She was off of pressor support this afternoon and was up to the chair. She reports this headache felt different than her usual migraine and the vision changes were different from her usual migraine visual symptoms which she states is flashing lights and light sensitivity. Objective Data Objective Data Vital Signs: Vital Signs Temp Pulse Resp BP Pulse Ox O2 Del Method O2 Flow Rate 98 F 88 27 H 90/54 L 100 Nasal Cannula 3 07/26/24 00:00 07/26/24 16:11 07/26/24 12:00 07/26/24 12:00 07/26/24 12:47 07/26/24 12:00 07/26/24 13:40 Oxygen Flow Rate (L/min) 3 Oxygen Delivery Method Nasal Cannula Weight: 220 lb 7.396 oz Body Mass Index (BMI) 34.5 Intake & Output: Intake and Output for Last 24 Hours 07/24/24 07/25/24 07/26/24 23:59 23:59 23:59 Intake Total 2323.25 / 2474.00 1290.00 / 1290.00 Output Total 290 / 290 Balance 2313.25 / 2424.00 1000.00 / 1000.00 Lab / Micro Data 07/26/24 03:00 Labs: Laboratory Results - last 24 hr 07/25/24 16:24: POC Glucose 228 H 07/25/24 21:32: POC Glucose 157 H 07/26/24 03:00: WBC 8.0, RBC 3.37 L, Hgb 9.6 L, Hct 30.3 L, MCV 89.9, MCH 28.5, MCHC 31.7 L, RDW Std Deviation 51.0 H, RDW Coeff of Jan 15.8 H, Plt Count 162, MPV 11.6, Immature Gran % (Auto) 1.100 H, Neut % (Auto) 56.8, Lymph % (Auto) 27.9, [place] % (Auto) 6.9, Eos % (Auto) 6.7 H, Baso % (Auto) 0.6, Absolute Neuts (auto) 4.5, Absolute Lymphs (auto) 2.22, Nucleated RBC % 0 07/26/24 08:27: POC Glucose 220 H 07/26/24 12:16: POC Glucose 278 H Radiography Diagnostic Testing: Radiology Impression Brain CT 07/26/24 14:52 IMPRESSION: NO ACUTE FINDINGS Reading Location: [facility]--[address] 07/26/24 14:52 IMPRESSION: 1. Subcutaneous emphysema within the right anterior neck, likely postprocedural. No significant hematoma formation. 2. Stent within the right common carotid artery, with slight narrowing of the stent at the carotid bifurcation. Reading Location: [facility] Physical Exam Const alert, oriented x3, no apparent distress and healthy appearing General Appearance: cooperative; Negative for combative or lethargic Orientation / Consciousness: awake Exam Limitations: no limitations HEENT Head and Scalp: normocephalic and atraumatic Eyes EOMs intact bilaterally General Eye: normal appearance of both eyes Neck full ROM General: trachea midline; Negative for tenderness Resp normal respiratory effort and no use of accessory muscles Effort and Inspection: Negative for labored, stridor or audible wheezes Cardio regular rate and regular rhythm Back/Spine Cervical Spine: cervical ROM normal Extremity full ROM, normal capillary refill and no clubbing, cyanosis or edema Skin no rashes or lesions noted and no wounds Neuro oriented x3, CN's II-XII intact bilaterally, no focal motor deficits and no sensory deficits noted Psych thought process normal, cooperative, affect normal, speech normal and activity/motor behavior normal Assessment & Plan Assessment/Plan (1) Stenosis of right internal carotid artery: PLAN: She is POD#1 from R TCAR. KIMBERLY drain had minimal serosanguineous output and was removed this morning without issue. No evidence of hematoma. Obtained Head/Neck CT without contrast which was negative for intracranial bleeding or hematoma around the surgical site; will continue to monitor headache and R eye vision for now. She is otherwise neurologically intact, do not feel these symptoms are consistent with CVA/TIA. Will consider carotid duplex for further evaluation of the stent should these symptoms persist or worsen. Continue to monitor blood sugars; she is typically on an insulin pump but this is not presently in place as she forgot to replace it after a recent MRI. She was weaned from pressor support this afternoon. Will continue to hold home anti-hypertensive regimen and monitor BPs. Anticipate discharge tomorrow.
[2024-07-26 16:31] LABS: Bedside Glucose 322 mg/dL (74-106)
[2024-07-26] MEDS: 0.9% Saline Lock 10 ML Syringe IV ×2 (19:50→22:22)
[2024-07-26 21:12] LABS: Bedside Glucose 356 mg/dL (74-106)
[2024-07-26] MEDS: Mirtazapine 15 MG Tablet 7.5 MG PO (22:18)
[2024-07-26] MEDS: Atorvastatin Calcium 80 MG Tablet PO (22:18)
[2024-07-27] VITALS (16 sets, daily range): BP systolic 102–141; BP diastolic 43–70; PULSE 84–105; RESP 10–23; TEMP 36.4–36.6; O2SAT 88–100; BMI 34.8
[2024-07-27] MEDS: Acetaminophen 500 MG Tablet 1000 MG PO (05:34)
[2024-07-27] MEDS: Insulin Lispro 100 UNIT/ML INSULN.PEN SC (05:38)
[2024-07-27 05:58] LABS: Bedside Glucose 295 mg/dL (74-106)
[2024-07-27] MEDS: Pregabalin 75 MG Capsule PO (07:46)
[2024-07-27] MEDS: DULoxetine Hcl 60 MG Capsule PO (07:46)
[2024-07-27] MEDS: Aspirin E.C. 81 MG Tablet PO (07:46)
[2024-07-27] MEDS: Pantoprazole Sodium 40 MG Tablet PO (07:47)
[2024-07-27] MEDS: Enoxaparin 40 MG/0.4 ML Syringe SC (07:47)
[2024-07-27] MEDS: Primidone 50 MG Tablet PO (07:47)
[2024-07-27] MEDS: Fluticasone 0.05% 1 SPRAY NASAL.SRY 2 SPRAY NASAL (07:47)
[2024-07-27] MEDS: lamoTRIgine 100 MG Tablet 200 MG PO (07:47)
[2024-07-27] MEDS: Galantamine Hydrobromide 4 MG Tablet 8 MG PO (07:47)
[2024-07-27] MEDS: Clopidogrel Bisulfate 75 MG Tablet PO (07:47)
--- NOTE | 2024-07-27 09:12 | CASEMGMT ---
Social Work Message received from [facility]. Pt has services through [employer]. Lauren Osorio is CM. Pt receives emergency response system, home delivered meals and qualifies for personal care however these services have not yet started. SW to notify [facility] of pt discharge. KIT Mendez
--- NOTE | 2024-07-27 09:36 | CASEMGMT ---
Social Work- SW participated in interdisciplinary rounds with care team. Pt reports that she is hoping to discharge today and has no concerns regarding return home. RNCM to follow for oxygen. SW to update CM at discharge. KIT Mays
--- NOTE | 2024-07-27 11:59 | PCM.DC.SUM ---
Providers Date of Admission: 07/25/24 Primary Care Physician: Dr. Mala Mcgrath MD Reason For Visit: RT CAROTID STENTING Diagnosis Discharge Diagnosis (1) Stenosis of right internal carotid artery: Status: Chronic Code(s): I65.21 - Occlusion and stenosis of right carotid artery Plan: She is POD#1 from R TCAR. KIMBERLY drain had minimal serosanguineous output and was removed this morning without issue. No evidence of hematoma. Obtained Head/Neck CT without contrast which was negative for intracranial bleeding or hematoma around the surgical site; will continue to monitor headache and R eye vision for now. She is otherwise neurologically intact, do not feel these symptoms are consistent with CVA/TIA. Will consider carotid duplex for further evaluation of the stent should these symptoms persist or worsen. Continue to monitor blood sugars; she is typically on an insulin pump but this is not presently in place as she forgot to replace it after a recent MRI. She was weaned from pressor support this afternoon. Will continue to hold home anti-hypertensive regimen and monitor BPs. Anticipate discharge tomorrow. Medications at Discharge Home Medications cyclobenzaprine 10 mg tablet 10 mg PO TID PRN muscle spasm #30 tabs 02/24/23 diphenoxylate-atropine 2.5 mg-0.025 mg tablet (Lomotil) 1 tab PO TID PRN diarrhea 06/21/23 isosorbide dinitrate 30 mg tablet 30 mg PO BID heart #60 tabs 12/08/23 Held on 07/27/24. Instructions: Resume on 07/29/24. hyoscyamine sulfate 0.125 mg tablet 0.125 mg PO BID-QID PRN dyspepsia 12/23/23 fluticasone propionate 50 mcg/actuation nasal spray,suspension (Flonase Allergy Relief) 2 spray intranasal DAILY allergies #16 grams 01/04/24 clopidogrel 75 mg tablet 75 mg PO DAILY anti platelet #28 TABLETS 02/02/24 triamcinolone acetonide 0.1 % topical ointment 1 applic topical DAILY PRN psoriasis 02/17/24 aspirin 81 mg tablet,delayed release 81 mg PO DAILY heart health #30 tabs 02/24/24 nitroglycerin 0.4 mg sublingual tablet 0.4 mg sublingual Q5-15M PRN chest pain #25 tabs 02/24/24 evolocumab 140 mg/mL subcutaneous pen injector (Repatha SureClick) 140 mg subcut Q2W #6 mL 02/29/24 insulin pump cart,auto,BT,G6/7 (Omnipod 5 G6-G7 Pods (Gen 5) subcutaneous cartridge) #45 ea 03/10/24 dicyclomine 10 mg capsule 10 mg PO BID PRN stomach 03/11/24 pantoprazole 40 mg tablet,delayed release (Protonix) 40 mg PO BID GERD #60 tabs 03/29/24 cholecalciferol (vitamin D3) 1,250 mcg (50,000 unit) capsule 1,250 mcg PO .monthly vit #14 caps 04/05/24 insulin lispro 200 unit/mL (3 mL) subcutaneous pen (Humalog KwikPen U-200 Insulin) 180 unit (0.9 mL) subcut QDAY diabetes #81 mL 04/11/24 buprenorphine 10 mcg/hour weekly transdermal patch (Butrans) 1 patch transdermal Q7D 04/24/24 albuterol sulfate 90 mcg/actuation aerosol inhaler 2 puff inhalation Q4-6H PRN SOB #8.5 grams 04/26/24 hydroxyzine HCl 25 mg tablet 25 mg PO TID PRN anxiety #90 tabs 04/26/24 duloxetine 60 mg capsule,delayed release 60 mg PO BID mental health #60 caps 05/09/24 lamotrigine 200 mg tablet 200 mg PO DAILY mood 30 days #30 tabs 05/09/24 mirtazapine 7.5 mg tablet 7.5 mg PO QHS mental health #30 tabs 05/09/24 amlodipine 5 mg tablet 5 mg PO QDAY #30 tabs 05/15/24 Held on 07/27/24. Instructions: Resume on 07/30/24. galantamine 16 mg 24 hr capsule,extended release 16 mg PO QAM #30 caps 06/03/24 primidone 50 mg tablet 50 mg PO BID #60 tabs 06/03/24 rimegepant 75 mg disintegrating tablet (Nurtec ODT) 75 mg PO DAILY PRN migraine headache #16 tabs 06/03/24 Dexcom G7 Sensor (blood-glucose sensor) #9 ea 06/13/24 metoprolol tartrate 25 mg tablet 25 mg PO BID #180 tabs 06/14/24 metoprolol tartrate 50 mg tablet 50 mg PO BID #180 tabs 06/14/24 pregabalin 75 mg capsule 75 mg PO DAILY pain #30 caps 06/16/24 atorvastatin 80 mg tablet 80 mg PO QHS CHOLESTEROL LOWERING #90 tabs 06/21/24 valacyclovir 500 mg tablet 500 mg PO Q12H PRN HSV 07/11/24 acetaminophen 500 mg tablet 1,000 mg (2 x 500 mg) PO Q8 7 days #0 tabs 07/27/24 oxycodone 5 mg tablet 5 mg PO Q8H PRN PRN Pain Score 4-10 3 days #9 tabs 07/27/24 Hospital Course Summary of Care Provided Hospital Course: Christelle Artis is a 64 y/o female who underwent R TCAR 07/25/2024. The procedure was without complication and she tolerated it well. Postoperatively, she was routinely admitted to the ICU for ongoing hemodynamic and neurologic monitoring. Postoperatively, she was hypotensive requirinng pressor support. She was able to be slowly weaned off of pressor support by the afternoon of POD#1. Her home antihypertensive regimen has been held; she will monitor BPs at home and restart these medications gradually as her blood pressure returns to baseline. Afternoon of POD#1 she developed a generalized headache and reported double/wavy vision in just her R eye and was also reporting increased pain at the surgical site; she was normotensive and had no focal neurologic deficits concerning for CVA. Obtained CT Head/Neck without contrast which was negative for brain bleed or hematoma at the surgical site. These symptoms were felt to be most likely related to her blood sugars (different control from baseline due to patient forgetting to replace insulin pump several days to a week prior to her admission) or perhaps atypical migraine (she has migraines chronically, but typically has flashing lights as visual symptoms). By this morning POD#2 her headaches and R eye visual abnormalities had completely resolved. She has remained neurologically stable throughout her admission. She has required 2 lpm O2 via nasal cannula continuously, were not able to wean this during her stay. She does have supplemental O2 at home which she reports is to be used PRN; she states she has a pulse ox at home but does not check this. When O2 weaning was attempted, she would drop to 88% saturation with removal of oxygen but was asymptomatic with this. She denies any SOB, new/worsened cough, CP. She will discharge home on updated prescription of O2 2lmp continuously via nasal cannula with plan to monitor pulse ox at home, continue to wean as able, and f/u with her marketing communications leader/PCP if need for continuous O2 persists. She worked with PT/OT and ambulated well with the use of a walker. She has a walker at home but typically uses a cane, she is aware that the recommendation is for her to use a walker. She is stable for discharge home today with scheduled outpatient follow-up in the office on 08/08/24. Physical Exam Const oriented x3 and no apparent distress General Appearance: cooperative; Negative for combative or lethargic Orientation / Consciousness: awake Exam Limitations: no limitations HEENT Head and Scalp: normocephalic and atraumatic Eyes EOMs intact bilaterally General Eye: normal appearance of both eyes Neck full ROM Neck Narrative: R neck incision site with skin glue intact, moderate amount of dried drainage on dressing overlying KIMBERLY site. Mild edema around the incision, soft to palpation and stable from yesterday morning at the time the drain was removed. General: trachea midline; Negative for tenderness Resp normal respiratory effort and no use of accessory muscles Effort and Inspection: Negative for labored, stridor or audible wheezes Cardio regular rate and regular rhythm Extremity no clubbing, cyanosis or edema Extremity Narrative: R groin puncture site with dressing C/D/I, no hematoma. Skin no rashes or lesions noted Neuro oriented x3, CN's II-XII intact bilaterally, no focal motor deficits and no sensory deficits noted Speech: speech normal Psych thought process normal, cooperative, affect normal, speech normal and activity/motor behavior normal Weight / BMI Weight Weight: 222 lb 7.143 oz Body Mass Index (BMI) 34.8 ABG / Lab / Microbiology Data 07/26/24 03:00 Laboratory: Laboratory Results - last 24 hr 07/26/24 12:16: POC Glucose 278 H 07/26/24 16:12: POC Glucose 322 H 07/26/24 20:50: POC Glucose 356 H 07/27/24 05:37: POC Glucose 295 H Radiography Diagnostic Testing: Radiology Impression Brain CT 07/26/24 14:52 IMPRESSION: NO ACUTE FINDINGS Reading Location: [id number] 07/26/24 14:52 IMPRESSION: 1. Subcutaneous emphysema within the right anterior neck, likely postprocedural. No significant hematoma formation. 2. Stent within the right common carotid artery, with slight narrowing of the stent at the carotid bifurcation. Reading Location: [facility] D/ Instructions May shower in (days): 1 Weight Bearing Status: Weight bearing as tolerated Lifting Restricted to (Lbs): 20 Lifting Restrictions: Do not lift more than 20 pounds for 3 weeks Call your doctor if your incision/area has: Sudden Increased Bleeding and Foul Smelling Discharge Call your doctor if you observe: Fever of 101 or Higher and Uncontrolled pain DC O2, CPAP, BIPAP Needs Home O2 Discharge instructions: Yes Type of respiratory needs?: Oxygen Oxygen frequency: Continuous Continuous oxygen liters per minute: 2 DC home with Oxygen: Yes Home O2 MD Review: I have reviewed the oxygen testing, and the patient qualifies for home oxygen equipment and portability. The patient is mobile in the home and the community. Additional Instructions: INCISION CARE: You have a small bandage on your neck over the site from which the surgical drain was removed and over the R groin puncture site. You may remove both bandages tomorrow. As long as there is no residual drainage, you may leave these sites open to air. If you do notice some continued drainage, you may re-cover with a Band-Aid. Your neck incision site is covered with skin glue which will continue to protect it. The skin glue will peel/flake off on its own over the next few weeks. Please do not pick at it. You may shower tomorrow. It is okay for soap and water to rinse over the incision site, pat to dry. Do not submerge the incision site in water such as to take a bath or go swimming etc. for 3 weeks. MEDICATION INSTRUCTIONS Continue to take Aspirin 81mg daily and Plavix 75mg daily. Your blood pressures have been a bit lower since surgery so we have been holding your home blood pressure medications. Please restart your metoprolol tonight. Continue to hold amlodipine and isosorbide dinitrate for now. Please check your blood pressure every morning and every evening or any time you feel dizzy/lightheaded or have other symptoms. When your systolic blood pressure (top number) is 140 mmHg or higher then restart your isosorbide dinitrate. Then continue to check your blood pressure daily and if it is again >140 on the top, restart your amlodipine. You have been prescribed oxycodone 5mg tablet to be taken by mouth every 8 hours as needed for pain. You may take this in addition to Tylenol as needed. You should not drive or operate machinery while taking this medication. Do not take this medication in combination with any other prescription pain medications. Call the office at [phone] with any questions about your medications ACTIVITY INSTRUCTIONS Do not lift greater than 20 pounds for 3 weeks. Otherwise, please continue with activity as tolerated. Do not drive until you can turn your head well enough to safely check your blind spots. FOLLOW-UP INSTRUCTIONS You are scheduled for follow-up in the office on 08/08/2024. If you need to change this appointment or have any other questions/concerns, please call the office at [phone]. Please Follow Up With: Jennifer Ortega PA When: 08/08/24 Meaningful Use Info Meaningful Use Meaningful Use Diagnoses (Choose all that apply): None applicable Ischemic Stroke Statin Dosing Therapy Reference: STATIN DOSE THERAPY REFERENCE: * Patients > 75 years receive moderate or high dose statin therapy. * Patients 75 years or YOUNGER should receive HIGH intensity statin dose unless contraindicated. You will be required to document reason for non-treatment if statin daily dose does not meet guidelines. HIGH DOSE STATIN THERAPY DAILY Atorvastatin > than or = to 40 mg Rosuvastatin > than or = to 20 mg Amlodipine + Atorvastatin > than or = to 2.5/40 mg Ezetimibe + Simvastatin 10/80 mg Simvastatin 80mg Discharge Plan Admission Admit Date/Time: 07/25/24 09:37 Primary Reason for Your Visit: R TCAR Attending Provider: Shiva Spencer Primary Care Provider: Mala Mcgrath Instructions Additional Instructions / Restrictions: INCISION CARE: You have a small bandage on your neck over the site from which the surgical drain was removed and over the R groin puncture site. You may remove both bandages tomorrow. As long as there is no residual drainage, you may leave these sites open to air. If you do notice some continued drainage, you may re-cover with a Band-Aid. Your neck incision site is covered with skin glue which will continue to protect it. The skin glue will peel/flake off on its own over the next few weeks. Please do not pick at it. You may shower tomorrow. It is okay for soap and water to rinse over the incision site, pat to dry. Do not submerge the incision site in water such as to take a bath or go swimming etc. for 3 weeks. MEDICATION INSTRUCTIONS Continue to take Aspirin 81mg daily and Plavix 75mg daily. Your blood pressures have been a bit lower since surgery so we have been holding your home blood pressure medications. Please restart your metoprolol tonight. Continue to hold amlodipine and isosorbide dinitrate for now. Please check your blood pressure every morning and every evening or any time you feel dizzy/lightheaded or have other symptoms. When your systolic blood pressure (top number) is 140 mmHg or higher then restart your isosorbide dinitrate. Then continue to check your blood pressure daily and if it is again >140 on the top, restart your amlodipine. You have been prescribed oxycodone 5mg tablet to be taken by mouth every 8 hours as needed for pain. You may take this in addition to Tylenol as needed. You should not drive or operate machinery while taking this medication. Do not take this medication in combination with any other prescription pain medications. Call the office at [phone] with any questions about your medications ACTIVITY INSTRUCTIONS Do not lift greater than 20 pounds for 3 weeks. Otherwise, please continue with activity as tolerated. Do not drive until you can turn your head well enough to safely check your blind spots. FOLLOW-UP INSTRUCTIONS You are scheduled for follow-up in the office on 08/08/2024. If you need to change this appointment or have any other questions/concerns, please call the office at [phone]. Discharge Orders/Prescriptions Prescriptions: New acetaminophen 500 mg Tablet 1,000 mg PO Q8 7 Days Qty: 0 0RF oxycodone 5 mg Tablet 5 mg PO Q8H PRN PRN (Reason: Pain Score 4-10) 3 Days Qty: 9 0RF Continued cyclobenzaprine 10 mg tablet 10 mg PO TID PRN (Reason: muscle spasm) Qty: 30 0RF aspirin 81 mg tablet,delayed release (DR/EC) 81 mg PO DAILY Qty: 30 11RF nitroglycerin 0.4 mg tablet, sublingual 0.4 mg sublingual Q5-15M PRN (Reason: chest pain) Qty: 25 3RF Rx Instructions: do not exceed 3 doses per episode hyoscyamine sulfate 0.125 mg tablet 0.125 mg PO BID-QID PRN (Reason: dyspepsia) galantamine 16 mg capsule,ext rel. pellets 24 hr 16 mg PO QAM Qty: 30 5RF Rx Instructions: Administer with breakfast. Nurtec ODT 75 mg tablet,disintegrating 75 mg PO DAILY PRN (Reason: migraine headache) Qty: 16 2RF primidone 50 mg tablet 50 mg PO BID Qty: 60 5RF duloxetine 60 mg capsule,delayed release(DR/EC) 60 mg PO BID Qty: 60 2RF lamotrigine 200 mg tablet 200 mg PO DAILY 30 Days Qty: 30 2RF Rx Instructions: Hold for lethargy/sedation mirtazapine 7.5 mg tablet 7.5 mg PO QHS Qty: 30 2RF Rx Instructions: Hold for lethargy/sedation diphenoxylate-atropine [Lomotil] 2.5-0.025 mg tablet 1 tab PO TID PRN (Reason: diarrhea) triamcinolone acetonide 0.1 % ointment 1 applic topical DAILY PRN (Reason: psoriasis) buprenorphine [Butrans] 10 mcg/hour patch weekly 1 patch transdermal Q7D valacyclovir 500 mg tablet 500 mg PO Q12H PRN (Reason: HSV) dicyclomine 10 mg Capsule 10 mg PO BID PRN (Reason: stomach) fluticasone propionate [Flonase Allergy Relief] 50 mcg/actuation spray,suspension 2 spray intranasal DAILY Qty: 16 3RF Rx Instructions: administer into each nostril clopidogrel 75 mg tablet 75 mg PO DAILY Qty: 28 11RF Repatha SureClick 140 mg/mL pen injector 140 mg subcut Q2W Qty: 6 3RF (DME) Omnipod 5 G6-G7 Pods (Gen 5) Cartridge See Rx Instructions .Route Qty: 45 1RF Rx Instructions: change every 48 hours pantoprazole [Protonix] 40 mg tablet,delayed release (DR/EC) 40 mg PO BID Qty: 60 11RF cholecalciferol (vitamin D3) 1,250 mcg (50,000 unit) capsule 1,250 mcg PO .monthly Qty: 14 1RF Humalog KwikPen Insulin 200 unit/mL (3 mL) insulin pen 180 unit subcut QDAY Qty: 81 1RF Patient Comments: turned pump off on Wednesday07/22/24 Rx Instructions: via insulin pump hydroxyzine HCl 25 mg tablet 25 mg PO TID PRN (Reason: anxiety) Qty: 90 2RF albuterol sulfate 90 mcg/actuation HFA aerosol inhaler 2 puff INHALATION Q4-6H PRN (Reason: SOB) Qty: 8.5 0RF (DME) Dexcom G7 Sensor Device See Rx Instructions .Route Qty: 9 3RF Rx Instructions: change every 10 days metoprolol tartrate 25 mg tablet 25 mg PO BID Qty: 180 3RF Rx Instructions: Take with 50 mg tablet to = 75 mg BID metoprolol tartrate 50 mg tablet 50 mg PO BID Qty: 180 3RF Rx Instructions: Take with 25 mg tablet to = 75 mg BID pregabalin 75 mg capsule 75 mg PO DAILY Qty: 30 1RF atorvastatin 80 mg tablet 80 mg PO QHS Qty: 90 1RF Patient Comments: cholesterol Held isosorbide dinitrate 30 mg tablet 30 mg PO BID Qty: 60 11RF Hold Instructions: Resume on 07/29/24. amlodipine 5 mg tablet 5 mg PO QDAY Qty: 30 11RF Hold Instructions: Resume on 07/30/24. Other Ambulatory Orders: 12 Lead EKG (Routine) Timeframe: 20240719 Location: None Selected Ordered By: Dr. Vikas Hill Referrals / Follow Up: Mala Mcgrath MD [Primary Care Provider] - Disposition Disposition (needs filled in before D/C Order can be placed): Home, Self Care
--- NOTE | 2024-07-27 12:00 | CASEMGMT ---
Addendum entered by Ayush Bernardo 07/27/24 13:51: Script received for o2 @ 2 L/M continuously. Script, along w/home O2 amb testing, [place] [facility] [place] [facility]. Addendum entered by Ayush Bernardo 07/27/24 12:33: Discharge order is in. Noted Rx for oxycodone has been sent to [place] [facility]. SVETLANA RAINEY to room. Pt made aware. She states she does not have meds delivered to her home, they pick them up @ [place] and she can pick them up today. Original Note: SVETLANA RAINEY NOTE: Home O2 testing has been completed. Pt qualifies for O2 @ 2 L/M continuously. SVETLANA RAINEY to room. Pt sitting up in chair. Pt made aware she is to wear 2 L/M continuously now and questions answered. Will send updated O2 script [place] [facility] [place]. Pt denies having any concerns w/going home and denies need for HHC or OP therapy. She verifies she does have a pulse ox @ home and a walker, which therapy is recommending, and pt is aware. Mitchel NAVARRON SVETLANA CM
--- NOTE | 2024-07-27 14:26 | CASEMGMT ---
Social Work- faxed discharge summary to [facility]. KIT Mays
== END 2024-07-27 13:05 | disposition home or self-care (01) | DRG 35 ==
LOC: ICU 10:56 → SDC 10:56 → ICU 10:56
PROVIDERS: Anesthesiology; Admitting Provider Surgery Trauma Surgery; PCP Internal Medicine; Referring Provider Surgery Trauma Surgery; Visit Provider Surgery Trauma Surgery
PROC: 037K34Z Dilation of Right Internal Carotid Artery with Drug-eluting Intraluminal Device, Percutaneous Approach (ICD-10-PCS; CPT 37236; principal; 2024-07-25 06:45)
DX: I65.21 Occlusion and stenosis of right carotid artery (principal); J96.10 Chronic respiratory failure, unspecified whether with hypoxia or hypercapnia; I50.32 Chronic diastolic (congestive) heart failure; I13.0 Hypertensive heart and chronic kidney disease with heart failure and stage 1 through stage 4 chronic kidney disease, or unspecified chronic kidney disease; N18.4 Chronic kidney disease, stage 4 (severe); E11.22 Type 2 diabetes mellitus with diabetic chronic kidney disease; J44.9 Chronic obstructive pulmonary disease, unspecified; Z93.2 Ileostomy status; E11.43 Type 2 diabetes mellitus with diabetic autonomic (poly)neuropathy; K21.9 Gastro-esophageal reflux disease without esophagitis; E78.49 Other hyperlipidemia; I25.10 Atherosclerotic heart disease of native coronary artery without angina pectoris; E11.42 Type 2 diabetes mellitus with diabetic polyneuropathy; F41.8 Other specified anxiety disorders; E78.00 Pure hypercholesterolemia, unspecified; E11.65 Type 2 diabetes mellitus with hyperglycemia; I95.81 Postprocedural hypotension; T81.82XA Emphysema (subcutaneous) resulting from a procedure, initial encounter; M25.461 Effusion, right knee; M25.561 Pain in right knee; Z82.49 Family history of ischemic heart disease and other diseases of the circulatory system; Z79.84 Long term (current) use of oral hypoglycemic drugs; G89.29 Other chronic pain; Z87.891 Personal history of nicotine dependence; Z79.02 Long term (current) use of antithrombotics/antiplatelets; Z79.891 Long term (current) use of opiate analgesic; Z79.85 Long-term (current) use of injectable non-insulin antidiabetic drugs; Z95.5 Presence of coronary angioplasty implant and graft; Z96.41 Presence of insulin pump (external) (internal); Z79.82 Long term (current) use of aspirin; Z90.710 Acquired absence of both cervix and uterus; Z88.7 Allergy status to serum and vaccine; Z88.8 Allergy status to other drugs, medicaments and biological substances; Z88.1 Allergy status to other antibiotic agents; Z88.2 Allergy status to sulfonamides; Z98.890 Other specified postprocedural states; Z90.49 Acquired absence of other specified parts of digestive tract; Z95.1 Presence of aortocoronary bypass graft; Z96.642 Presence of left artificial hip joint; R26.89 Other abnormalities of gait and mobility; R29.6 Repeated falls
CPT/HCPCS: 37215; 70450; 70490; 73721; 76937; 82962; 83036; 85025; 85347; 86850; 86900; 86901; 93005; 94668; 94762; 97162; 97166; 97802; 99252; A4648; C1725; C1769; C1876; C1884; C1894; Q9967; A4216; G0463

== ENCOUNTER 2024-08-02 10:55 | Outpatient (CLI) | payer MEDICARE, MEDICAID, SELFPAY ==
[2024-06-27 09:22] VITALS: BMI 30.9
[2024-08-02] MEDS: Lactated Ringers 1,000 ML 1000 ML IV (11:19)
[2024-08-02] MEDS: 0.9% NaCl Peripheral Flush Adult IV (11:19)
[2024-08-02 11:20] VITALS: BP 126/51; PULSE 62; RESP 16; TEMP 36.3; O2SAT 97; BMI 32.8
[2024-08-02 12:32] VITALS: BP 143/62; PULSE 60; RESP 16; TEMP 36.2; O2SAT 98
== END 2024-08-02 23:59 | disposition home or self-care (01) ==
LOC: MEDOUTP 10:56
PROVIDERS: PCP Internal Medicine; Referring Provider Student in an Organized Health Care Education/Training Program; Visit Provider Student in an Organized Health Care Education/Training Program
DX: E86.0 Dehydration (principal); R19.8 Other specified symptoms and signs involving the digestive system and abdomen
CPT/HCPCS: 96360; A4216

== ENCOUNTER 2024-08-07 10:47 | Outpatient (CLI) | payer MEDICARE, MEDICAID, SELFPAY ==
[2024-06-27 09:22] VITALS: BMI 30.9
[2024-08-07] MEDS: Lactated Ringers 1,000 ML 999 ML IV (10:58)
[2024-08-07 11:00] VITALS: BP 164/74; PULSE 64; RESP 16; TEMP 35.7; O2SAT 94; BMI 33.2
[2024-08-07 12:04] VITALS: BP 165/75; PULSE 63; RESP 16; TEMP 35.8
[2024-08-07] MEDS: 0.9% NaCl Peripheral Flush Adult IV (12:04)
== END 2024-08-07 23:59 | disposition home or self-care (01) ==
LOC: MEDOUTP 10:47
PROVIDERS: PCP Internal Medicine; Referring Provider Student in an Organized Health Care Education/Training Program; Visit Provider Student in an Organized Health Care Education/Training Program
DX: E86.0 Dehydration (principal); Z93.2 Ileostomy status; R19.8 Other specified symptoms and signs involving the digestive system and abdomen; M17.11 Unilateral primary osteoarthritis, right knee; S83.231D Complex tear of medial meniscus, current injury, right knee, subsequent encounter; R29.6 Repeated falls
CPT/HCPCS: 96360; 97162; A4216

== ENCOUNTER 2024-08-09 10:50 | Outpatient (CLI) | payer MEDICARE, MEDICAID, SELFPAY ==
[2024-06-27 09:22] VITALS: BMI 30.9
[2024-08-09] MEDS: Lactated Ringers 1,000 ML 999 ML IV (11:00)
[2024-08-09 11:04] VITALS: BP 161/72; PULSE 65; RESP 16; TEMP 35.8; O2SAT 97
[2024-08-09] MEDS: 0.9% NaCl Peripheral Flush Adult IV (12:15)
[2024-08-09 12:18] VITALS: BP 156/72; PULSE 58
== END 2024-08-09 23:59 | disposition home or self-care (01) ==
LOC: MEDOUTP 10:50
PROVIDERS: PCP Internal Medicine; Referring Provider Student in an Organized Health Care Education/Training Program; Visit Provider Student in an Organized Health Care Education/Training Program
DX: E86.0 Dehydration (principal); K94.19 Other complications of enterostomy
CPT/HCPCS: 96360; A4216

== ENCOUNTER 2024-08-14 10:49 | Outpatient (CLI) | payer MEDICARE, MEDICAID, SELFPAY ==
[2024-06-27 09:22] VITALS: BMI 30.9
[2024-08-14] MEDS: Lactated Ringers 1,000 ML 999 ML IV (11:06)
[2024-08-14 11:07] VITALS: BP 124/61; PULSE 69; RESP 18; TEMP 36; O2SAT 96
[2024-08-14] MEDS: 0.9% NaCl Peripheral Flush Adult IV (12:16)
[2024-08-14 12:17] VITALS: BP 145/63; PULSE 65; RESP 16
== END 2024-08-14 23:59 | disposition home or self-care (01) ==
LOC: MEDOUTP 10:50
PROVIDERS: PCP Internal Medicine; Referring Provider Student in an Organized Health Care Education/Training Program; Visit Provider Student in an Organized Health Care Education/Training Program
DX: R19.8 Other specified symptoms and signs involving the digestive system and abdomen (principal); E86.0 Dehydration
CPT/HCPCS: 96360; A4216

== ENCOUNTER 2024-08-16 10:46 | Outpatient (CLI) | payer MEDICARE, MEDICAID, SELFPAY ==
[2024-06-27 09:22] VITALS: BMI 30.9
[2024-08-16] MEDS: Lactated Ringers 1,000 ML 999 ML IV (10:53)
[2024-08-16 10:57] VITALS: BP 145/71; PULSE 68; RESP 16; TEMP 36.6; O2SAT 98; BMI 33.6
[2024-08-16 12:05] VITALS: BP 147/68; PULSE 71; RESP 16; TEMP 36.6; O2SAT 97
[2024-08-16] MEDS: 0.9% NaCl Peripheral Flush Adult IV (12:05)
== END 2024-08-16 23:59 | disposition home or self-care (01) ==
LOC: MEDOUTP 10:46
PROVIDERS: PCP Internal Medicine; Referring Provider Student in an Organized Health Care Education/Training Program; Visit Provider Student in an Organized Health Care Education/Training Program
DX: E86.0 Dehydration (principal); R19.8 Other specified symptoms and signs involving the digestive system and abdomen
CPT/HCPCS: 96360; A4216

== ENCOUNTER → 2024-08-18 | Outpatient (CLI) | payer MEDICARE, MEDICAID, SELFPAY ==
[2024-06-27 09:22] VITALS: BMI 30.9
--- NOTE | 2024-08-18 12:36 | CDU_ITS ---
Reason For Study Reason For Study: S/P TCAR Rt. Velocities/BP Lt. Velocities/BP Prox CCA 82.0/16.0 cm/sec. Prox CCA 133.2/23.6 cm/sec. Mid CCA 73.2/14.9 cm/sec. Mid CCA 102.1/10.8 cm/sec. Dist CCA 66.6/14.9 cm/sec. Dist CCA 107.6/18.1 cm/sec. Prox ICA 89.3/18.1 cm/sec. Prox ICA 301.7/58.5 cm/sec. Mid ICA 87.5/19.9 cm/sec. Mid ICA 258.5/38.8 cm/sec. Dist ICA 103.9/25.4 cm/sec. Dist ICA 142.3/34.5 cm/sec. Prox ECA 105.8/14.4 cm/sec. Prox ECA 168.2/0.0 cm/sec. Rt. Vert. 69.2/10.8 cm/sec. Lt. Vert. 102.1/23.6 cm/sec. Right Extracranial There is intimal thickening but no significant atherosclerotic plaque noted in the right common carotid artery. patent stent visualized. There is heterogeneous, irregular atherosclerotic plaque noted in the right internal carotid artery. There is heterogeneous, irregular atherosclerotic plaque noted in the right external carotid artery. Antegrade flow is noted in the right vertebral artery. Left Extracranial There is heterogeneous, irregular atherosclerotic plaque noted in the left common carotid artery. There is heterogeneous, irregular atherosclerotic plaque noted in the left internal carotid artery. There is heterogeneous, irregular atherosclerotic plaque noted in the left external carotid artery. Antegrade flow is noted in the left vertebral artery. Procedure Carotid Duplex 47006. This is a Carotid Duplex examination using B-mode, color flow and specral Doppler. Exam performed in department. VL/Carotid Duplex Ultrasound Interpretation Summary Mild (<50%) stenosis right extracranial internal carotid. Severe (>70%) stenosis left extracranial internal carotid. Patent and antegrade vertebrals bilaterally. Ordering Physician: Jennifer Ortega Referring Physician: Mala Mcgrath Performed By: Brittany Chapman RDCS, RVT
== END | disposition home or self-care (01) ==
LOC: CVS 12:35
PROVIDERS: PCP Internal Medicine; Referring Provider Physician Assistant; Visit Provider Physician Assistant
DX: Z48.812 Encounter for surgical aftercare following surgery on the circulatory system (principal)
CPT/HCPCS: 93880

== ENCOUNTER 2024-08-21 10:50 | Outpatient (CLI) | payer MEDICARE, MEDICAID, SELFPAY ==
[2024-06-27 09:22] VITALS: BMI 30.9
[2024-08-21] MEDS: Lactated Ringers 1,000 ML 1000 ML IV (11:03)
[2024-08-21 11:05] VITALS: BP 128/67; PULSE 77; RESP 16; TEMP 36.4; O2SAT 95
[2024-08-21] MEDS: 0.9% NaCl Peripheral Flush Adult IV (12:09)
[2024-08-21 12:10] VITALS: BP 145/68; PULSE 77; RESP 16
== END 2024-08-21 23:59 | disposition home or self-care (01) ==
LOC: MEDOUTP 10:50
PROVIDERS: PCP Internal Medicine; Referring Provider Student in an Organized Health Care Education/Training Program; Visit Provider Student in an Organized Health Care Education/Training Program
DX: E86.0 Dehydration (principal); R19.8 Other specified symptoms and signs involving the digestive system and abdomen
CPT/HCPCS: 96360; A4216

== ENCOUNTER 2024-08-23 10:54 | Outpatient (CLI) | payer MEDICARE, MEDICAID, SELFPAY ==
[2024-06-27 09:22] VITALS: BMI 30.9
[2024-08-23] MEDS: Lactated Ringers 1,000 ML 1000 ML IV (11:06)
[2024-08-23 11:07] VITALS: BP 165/59; PULSE 80; RESP 16; TEMP 35.7; O2SAT 95; BMI 33.2
[2024-08-23] MEDS: 0.9% NaCl Peripheral Flush Adult IV (12:12)
[2024-08-23 12:15] VITALS: BP 160/64; PULSE 75; RESP 16; TEMP 35.7; O2SAT 96
== END 2024-08-23 23:59 | disposition home or self-care (01) ==
LOC: MEDOUTP 10:54
PROVIDERS: PCP Internal Medicine; Referring Provider Student in an Organized Health Care Education/Training Program; Visit Provider Student in an Organized Health Care Education/Training Program
DX: E86.0 Dehydration (principal); R19.8 Other specified symptoms and signs involving the digestive system and abdomen
CPT/HCPCS: 96360; A4216

== ENCOUNTER 2024-08-28 11:01 | Outpatient (CLI) | payer MEDICARE, MEDICAID, SELFPAY ==
[2024-06-27 09:22] VITALS: BMI 30.9
[2024-08-28 11:12] VITALS: BP 160/59; PULSE 70; RESP 16; TEMP 36.2; O2SAT 97; BMI 33.2
[2024-08-28] MEDS: Lactated Ringers 1,000 ML 999 ML IV (11:16)
[2024-08-28] MEDS: 0.9% NaCl Peripheral Flush Adult IV (12:36)
[2024-08-28 12:38] VITALS: BP 159/64; PULSE 71
== END 2024-08-28 23:59 | disposition home or self-care (01) ==
LOC: MEDOUTP 11:01
PROVIDERS: PCP Internal Medicine; Referring Provider Student in an Organized Health Care Education/Training Program; Visit Provider Student in an Organized Health Care Education/Training Program
DX: E86.0 Dehydration (principal); R19.8 Other specified symptoms and signs involving the digestive system and abdomen
CPT/HCPCS: 96360; A4216

== ENCOUNTER 2024-08-30 11:39 | Outpatient (CLI) | payer MEDICARE, MEDICAID, SELFPAY ==
[2024-06-27 09:22] VITALS: BMI 30.9
[2024-08-30] MEDS: Lactated Ringers 1,000 ML 999 ML IV (11:53)
[2024-08-30 11:56] VITALS: BP 129/57; PULSE 73; RESP 16; TEMP 36.8; O2SAT 94
[2024-08-30 13:12] VITALS: BP 110/62; PULSE 72; RESP 16; TEMP 36.3; O2SAT 97
== END 2024-08-30 23:59 | disposition home or self-care (01) ==
LOC: MEDOUTP 11:39
PROVIDERS: PCP Internal Medicine; Referring Provider Student in an Organized Health Care Education/Training Program; Visit Provider Student in an Organized Health Care Education/Training Program
DX: E86.0 Dehydration (principal); R19.8 Other specified symptoms and signs involving the digestive system and abdomen
CPT/HCPCS: 96360; A4216

== ENCOUNTER 2024-09-04 10:52 | Outpatient (CLI) | payer MEDICARE, MEDICAID, SELFPAY ==
[2024-06-27 09:22] VITALS: BMI 30.9
[2024-09-04] MEDS: Lactated Ringers 1,000 ML 1000 ML IV (11:04)
[2024-09-04 11:06] VITALS: BP 146/59; PULSE 72; RESP 16; TEMP 36.1; O2SAT 98
[2024-09-04] MEDS: 0.9% NaCl Peripheral Flush Adult IV (12:11)
[2024-09-04 12:23] VITALS: BP 161/72; PULSE 71; RESP 16; TEMP 36.4; O2SAT 97
== END 2024-09-04 23:59 | disposition home or self-care (01) ==
LOC: MEDOUTP 10:52
PROVIDERS: PCP Internal Medicine; Referring Provider Student in an Organized Health Care Education/Training Program; Visit Provider Student in an Organized Health Care Education/Training Program
DX: E86.0 Dehydration (principal); R19.8 Other specified symptoms and signs involving the digestive system and abdomen
CPT/HCPCS: 96360; A4216

== ENCOUNTER 2024-09-11 10:48 | Outpatient (CLI) | payer MEDICARE, MEDICAID, SELFPAY ==
[2024-06-27 09:22] VITALS: BMI 30.9
[2024-09-11] MEDS: Lactated Ringers 1,000 ML 999 ML IV (11:06)
[2024-09-11 11:12] VITALS: BP 151/76; PULSE 71; RESP 16; TEMP 36.7; O2SAT 97; BMI 34.2
[2024-09-11 12:18] VITALS: BP 159/75; PULSE 77; RESP 16
[2024-09-11] MEDS: 0.9% NaCl Peripheral Flush Adult IV (12:18)
== END 2024-09-11 23:59 | disposition home or self-care (01) ==
LOC: MEDOUTP 10:49
PROVIDERS: PCP Internal Medicine; Referring Provider Student in an Organized Health Care Education/Training Program; Visit Provider Student in an Organized Health Care Education/Training Program
DX: E86.0 Dehydration (principal); R19.8 Other specified symptoms and signs involving the digestive system and abdomen
CPT/HCPCS: 96360; A4216

== ENCOUNTER 2024-09-13 12:12 | Outpatient (CLI) | payer MEDICARE, MEDICAID, SELFPAY ==
[2024-06-27 09:22] VITALS: BMI 30.9
[2024-09-13 12:20] VITALS: BP 127/59; PULSE 78; RESP 16; TEMP 36.4; O2SAT 95
[2024-09-13] MEDS: Lactated Ringers 1,000 ML 999 ML IV (12:28)
[2024-09-13] MEDS: 0.9% NaCl Peripheral Flush Adult IV (13:34)
[2024-09-13 13:36] VITALS: BP 151/65; PULSE 73; RESP 16; TEMP 35.8; O2SAT 96
== END 2024-09-13 23:59 | disposition home or self-care (01) ==
LOC: MEDOUTP 12:12
PROVIDERS: PCP Internal Medicine; Referring Provider Student in an Organized Health Care Education/Training Program; Visit Provider Student in an Organized Health Care Education/Training Program
DX: E86.0 Dehydration (principal); R19.8 Other specified symptoms and signs involving the digestive system and abdomen
CPT/HCPCS: 96360; A4216

== ENCOUNTER 2024-09-18 10:31 | Outpatient (CLI) | payer MEDICARE, MEDICAID, SELFPAY ==
[2024-06-27 09:22] VITALS: BMI 30.9
[2024-09-18 10:35] VITALS: BP 118/51; PULSE 78; RESP 16; TEMP 35.9; O2SAT 96
[2024-09-18] MEDS: Lactated Ringers 1,000 ML 999 ML IV (10:45)
[2024-09-18] MEDS: 0.9% NaCl Peripheral Flush Adult IV (11:55)
[2024-09-18 11:56] VITALS: BP 118/40; PULSE 74; RESP 16; TEMP 36; O2SAT 96
== END 2024-09-18 23:59 | disposition home or self-care (01) ==
LOC: MEDOUTP 10:31
PROVIDERS: PCP Internal Medicine; Referring Provider Student in an Organized Health Care Education/Training Program; Visit Provider Student in an Organized Health Care Education/Training Program
DX: E86.0 Dehydration (principal); R19.8 Other specified symptoms and signs involving the digestive system and abdomen
CPT/HCPCS: 96360; A4216

== ENCOUNTER 2024-09-20 13:00 | Outpatient (RCR) | payer MEDICARE, MEDICAID, SELFPAY ==
[2024-06-27 09:22] VITALS: BMI 30.9
--- NOTE | 2024-08-07 16:01 | HP.PTEVAL_ITS ---
Patient's Visit Information Visit Information Visit Information: ASHLEY MÉNDEZ is a 64 year old F referred to Physical Therapy by DERIC Yoo with a diagnosis of R knee DJD/R knee meniscus, freq falls, balance disorder, poor gait. Date of Evaluation: 08/07/24 Physical Therapist: Marina Sanabria MPT Visit Plan Frequency: 2x /Week Duration: 2 Months Plan: Pt will be starting gel injections this Wednesday08-11-24 2X/ week for 8 weeks for R knee AAROM/AROM, strengthening of hip and R knee, gait training, functional activities with HEP Pt uses a walker in her home and a cane when she goes out but tried to get her to use a walker at all times now to let her pain settle. Pt has a lot of medial knee pain and on MRI shows MCL strain grade 2 (explained that these take awhile to heal and keep her brace on to prevent aggrevating it while she is up and about) HEP: LAQ, QS with towel under knee (too painful without) and heel slides Subjective Subjective: Pt has been seen by Dr Hussein and [facility] [employer]. She saw him for the knee pain. He found she had a torn meniscus and he fixed it. She had a few more bad falls and the pain get worse and worse. She has had it drained and injections. She had an MRI. She was told she needed an knee replacement. She was told that she has a torn meniscus. She is going to get get injections for 3 weeks to see if helps with the pain and this is one of the ops insurance says she has to do. The knee hurts all the time and it feels like it is on fire at time and it gives out on her and keeps her up at night. There are days she can not even put pressure on it. If she rests it for a few days she might get a little better. She has to get her A1C down and get pre approval for surgery and for a short term correction. She wears a R knee brace and does not wear it at home. She usually wears it if she is going to be walking. She has had a hip replacement and her balance is always off. Meniere's Disease causes her loss of balance and she trips on things easy. Pain R knee pain: Pain Intensity (Out of 10): 8 Objective Objective: Gait: Walks with a straight cane with decrease stance time and WB on the R LE and not a smooth gait pattern (heavy weight through the cane) LE MMT: R hip flex 7.2 and L 10.4 R knee ext 9.8 and L 16.9 R knee flex 8.3 and L 12.3 Bridge: 1/2 normal ROM bridge but can not bend R knee very much to get in correct position. R supine hip abd 8.8 and L 11 Knee AROM: R -10 to 90 and L 0-125 Sit to stand: has to use arms and struggles to get up on the first attempt and hard to get her balance Balance/Special Test Scores Lower Extremity Functional Score: 12 Goals Goal 1:: I HEP Goal Time Frame: 6-8 Weeks Goal 2:: Be able to walk with smooth gait pattern with least restrictive device Goal Time Frame: 6-8 Weeks Goal 3:: Increase R knee AROM (at the time of the eval: Knee AROM: R -10 to 90 and L 0-125) Goal Time Frame: 6-8 Weeks Goal 4:: Increase R knee and hip strength (at the time of the eval: R hip flex 7.2 and L 10.4 R knee ext 9.8 and L 16.9 R knee flex 8.3 and L 12.3). Goal Time Frame: 6-8 Weeks Rehabilitation Potential Rehabilitation Potential: Fair Anticipated Interventions Patient/Client Instruction: Educate patient on: Condition and Plan of Care For the Purpose of:: To decrease pain, To increase ROM, To improve nutrient delivery to tissue, To improve muscle performance and motor function, To improve ability to perform ADL's, To increase tolerance to activity/condition/position, To improve ability of physical actions for home/community/work/leisure, To improve gait and locomotor functions, To improve health of tissue, To decrease soft tissue restriction and To increase flexibility/ROM Therapeutic Exercise to Include: Strength training, Flexibilty training, Gait and locomotor training, Neuromotor development, Passive ROM and Active ROM For the Purpose of:: To decrease pain, To increase ROM, To improve nutrient delivery to tissue, To improve ability to perform ADL's, To increase tolerance to activity/condition/position, To improve ability of physical actions for home/community/work/leisure, To improve gait and locomotor functions, To improve health of tissue, To decrease soft tissue restriction and To increase flexibility/ROM Functional Training to Include: Gait training For the Purpose of:: To improve gait and locomotor functions and To improve safety with gait Cryotherapy (ice pack, ice massage): Yes Thermo therapy (hot pack): Yes For the Purpose of:: To decrease pain, To decrease swelling/inflammation, To increase ROM and To improve nutrient delivery to tissue Text: Thank you for the opportunity to evaluate your patient. For Medicare and Medicare HMO plans, please review the plan of care and approve it. It will need to be FAXED BACK to us at [phone] for Medicare purposes. For Medicare only, by signing this I certify the plan of care. Please let me know if there are questions or concerns regarding this plan of care. Physician Signature: Date:
--- NOTE | 2024-11-13 14:19 | HP.PTDCNRP_ITS ---
Patient Information Patient Information: ASHLEY MÉNDEZ was seen in my office for initial evaluation on 08/07/24. The following Plan of Care was established for this patient: POC Established Initial Frequency: 2x /Week Initial Duration: 2 Months Anticipated Interventions Patient/Client Instruction: Educate patient on: Condition and Plan of Care For the Purpose of:: To decrease pain, To increase ROM, To improve nutrient delivery to tissue, To improve muscle performance and motor function, To improve ability to perform ADL's, To increase tolerance to activity/condition/position, To improve ability of physical actions for home/community/work/leisure, To improve gait and locomotor functions, To improve health of tissue, To decrease soft tissue restriction and To increase flexibility/ROM Therapeutic Exercise to Include: Strength training, Flexibilty training, Gait and locomotor training, Neuromotor development, Passive ROM and Active ROM For the Purpose of:: To decrease pain, To increase ROM, To improve nutrient delivery to tissue, To improve ability to perform ADL's, To increase tolerance to activity/condition/position, To improve ability of physical actions for home/community/work/leisure, To improve gait and locomotor functions, To improve health of tissue, To decrease soft tissue restriction and To increase flexibility/ROM Functional Training to Include: Gait training For the Purpose of:: To improve gait and locomotor functions and To improve safety with gait Cryotherapy (ice pack, ice massage): Yes Thermo therapy (hot pack): Yes For the Purpose of:: To decrease pain, To decrease swelling/inflammation, To increase ROM and To improve nutrient delivery to tissue Last Seen Last Seen: This patient was last seen in our office 09/20/24. Pertinent comments regarding their Physical therapy will appear below: KYLER PT At this point I will be discontinuing this patient from physical therapy. I wo uld be happy to see this patient again in the future if found appropriate by the physician. Thank you! Marina Sanabria, HANH Balance/Gait/Functional tests Balance/Special Test Scores Lower Extremity Functional Score: 12
== END 2024-09-20 19:00 | disposition home or self-care (01) ==
LOC: PT 13:00
PROVIDERS: PCP Internal Medicine; Referring Provider Nurse Practitioner Family; Visit Provider Nurse Practitioner Family
DX: S83.231D Complex tear of medial meniscus, current injury, right knee, subsequent encounter (principal); M17.11 Unilateral primary osteoarthritis, right knee; R29.6 Repeated falls; R26.89 Other abnormalities of gait and mobility
CPT/HCPCS: 97110; 97162; 97530

== ENCOUNTER 2024-09-20 14:18 | Outpatient (CLI) | payer MEDICARE, MEDICAID, SELFPAY ==
[2024-06-27 09:22] VITALS: BMI 30.9
[2024-09-20] MEDS: Lactated Ringers 1,000 ML 999 ML IV (14:32)
[2024-09-20 14:35] VITALS: BP 157/64; PULSE 73; RESP 16; TEMP 35.6; O2SAT 96
[2024-09-20] MEDS: 0.9% NaCl Peripheral Flush Adult IV (15:40)
[2024-09-20 15:41] VITALS: BP 148/58; PULSE 74; RESP 16; TEMP 35.8; O2SAT 95
== END 2024-09-20 23:59 | disposition home or self-care (01) ==
LOC: MEDOUTP 14:19
PROVIDERS: PCP Internal Medicine; Referring Provider Student in an Organized Health Care Education/Training Program; Visit Provider Student in an Organized Health Care Education/Training Program
DX: E86.0 Dehydration (principal); R19.8 Other specified symptoms and signs involving the digestive system and abdomen
CPT/HCPCS: 96360; A4216

== ENCOUNTER 2024-09-21 13:06 | Emergency (ER) | payer MEDICARE, MEDICAID, SELFPAY ==
[2024-06-27 09:22] VITALS: BMI 30.9
[2024-09-21 13:07] VITALS: BP 170/72; PULSE 84; RESP 16; TEMP 36.8; O2SAT 96; BMI 32.9
--- NOTE | 2024-09-21 13:59 | EDS_ITS ---
HPI <ROBERT Best - Last Filed: 09/21/24 18:02> History of Present Illness Chief Complaint: GI Bleed Narrative Narrative: 64-year-old female with past medical history of ulcerative colitis s/p bowel resection with high output colostomy, HTN, CAD, DM2, CKD, CHF, chronic back pain states 3 days ago there was a lot of bright red blood in her ileostomy. Yesterday it cleared but today she again has a few bright red blood. She is also having intermittent abdominal cramping. She states the area is draining so much it is hard to keep the bag adhered to her skin. Due to her high output ileostomy she gets IV fluids through her med port twice a week. She denies fever or chills or nausea or vomiting. She is on aspirin and Plavix due to history of CABG and 11 stents. She follows with Dr. Andino. Her original large bowel resection with ileostomy was done 40 years ago. At a later date was moved from the right to the left side. She also has a surgical history of cholecystectomy, appendectomy, and hysterectomy. She states her bowels have kinked in the past. [facility] <ROBERT Best - Last Filed: 09/21/24 18:02> [facility] Medical History COPD (chronic obstructive pulmonary disease) History of stress test Immunity status testing Chronic kidney disease, stage 3b History of CAD (coronary artery disease) History of chronic kidney disease History of diabetes mellitus CAD (coronary artery disease) Dehydration Falls Hypoxic respiratory failure Hypercapnic respiratory failure Fatigue Low back pain Abnormality of gait and mobility Polyneuropathy Insulin pump titration Presence of insulin pump Health care maintenance Essential tremor Dementia History of stress test Fungal dermatitis Herpes genitalia Encounter for insertion of venous access port Post-menopausal Rash Back pain Arthritis Ambulates with cane History of renal disease High cholesterol Dietary restriction History of pain when walking History of echocardiogram Chronic kidney disease (CKD) stage G4/A2, severely decreased glomerular filtration rate (GFR) between 15-29 mL/min/1.73 square meter and albuminuria creatinine ratio between 30-299 mg/g Chronic kidney disease (CKD) stage G4/A1, severely decreased glomerular filtration rate (GFR) between 15-29 mL/min/1.73 square meter and albuminuria creatinine ratio less than 30 mg/g Ingrown toenail Neuropathy Hyperglycemia due to diabetes mellitus Frequent falls Tremor Depression Chronic pain Rheumatoid arthritis Congestive heart failure (CHF) Lumbar spondylosis Greater trochanteric bursitis CKD (chronic kidney disease) stage 3, GFR 30-59 ml/min Malaise and fatigue Vitamin B12 deficiency History of CAD (coronary artery disease) Memory loss Anxiety and depression Degenerative disc disease at L5-S1 level CAD (coronary artery disease) Cellulitis, abdominal wall Left shoulder pain Gastroparesis Vitamin D deficiency Acute kidney injury CKD (chronic kidney disease), stage IV High output ileostomy MGUS (monoclonal gammopathy of unknown significance) Elevated anti-tissue transglutaminase (tTG) IgA level Ileostomy present Short bowel syndrome Loss of hearing Wears glasses History of COVID-19 Anxiety Insulin dependent diabetes mellitus Walker as ambulation aid Fatty liver Migraine headache Hx of diabetic gastroparesis Gastric reflux Former smoker BiPAP (biphasic positive airway pressure) dependence Hypertension Cardiology follow-up encounter Myoclonic jerking Chronic narcotic use Avascular necrosis of bone of left hip Chronic back pain Non-alcoholic fatty liver disease Liver mass Ulcerative colitis Nonalcoholic steatohepatitis Chronic respiratory failure Smoking greater than 20 pack years Obesity Chronic respiratory failure with hypoxia, on home O2 therapy Diabetic gastroparesis Secondary pulmonary arterial hypertension Chronic diastolic (congestive) heart failure Type 2 diabetes mellitus with diabetic polyneuropathy BMI 31.0-31.9,adult Depression with anxiety Arthritis Menieres disease Hyperlipidemia Psoriasis Obstructive sleep apnea FCHL (familial combined hyperlipidemia) DM2 (diabetes mellitus, type 2) Home Medications ?Medication ?Instructions ?Recorded ?Last Taken ?Type cyclobenzaprine 10 mg tablet 10 mg PO TID PRN muscle s pasm #30 02/24/23 07/23/24 Rx tabs diphenoxylate-atropine 2.5 1 tab PO TID PRN diarrhea 0 06/21/23 09/04/23 History mg-0.025 mg tablet (Lomotil) isosorbide dinitrate 30 mg tablet 30 mg PO BID heart # 60 tabs 12/08/23 07/24/24 Rx hyoscyamine sulfate 0.125 mg tablet 0.125 mg PO BID-QI D PRN dyspepsia 12/23/23 07/18/24 History fluticasone propionate 50 2 spray intranasal DAILY all ergies 01/04/24 07/24/24 Rx mcg/actuation nasal #16 grams spray,suspension (Flonase Allergy Relief) clopidogrel 75 mg tablet 75 mg PO DAILY anti platelet #28 02/02/24 07/24/24 Rx TABLETS triamcinolone acetonide 0.1 % 1 applic topical DAILY P RN 02/17/24 07/24/24 History topical ointment psoriasis aspirin 81 mg tablet,delayed 81 mg PO DAILY heart heal th #30 02/24/24 07/24/24 Rx release tabs nitroglycerin 0.4 mg sublingual 0.4 mg sublingual Q5-1 5M PRN chest 02/24/24 Unknown Rx tablet pain #25 tabs evolocumab 140 mg/mL subcutaneous 140 mg subcut Q2W #6 mL 02/29/24 07/22/24 Rx pen injector (Geraldine Collins) dicyclomine 10 mg capsule 10 mg PO BID PRN stomach 06/3007/23/24 History pantoprazole 40 mg tablet,delayed 40 mg PO BID GERD #6 0 tabs 03/29/24 07/24/24 Rx release (Protonix) cholecalciferol (vitamin D3) 1,250 1,250 mcg PO .month ly vit #14 caps 04/05/24 Unknown Rx mcg (50,000 unit) capsule buprenorphine 10 mcg/hour weekly 1 patch transdermal Q 7D 04/24/24 07/22/24 History transdermal patch (Butrans) albuterol sulfate 90 mcg/actuation 2 puff inhalation Q 4-6H PRN SOB 04/26/24 Unknown Rx aerosol inhaler #8.5 grams hydroxyzine HCl 25 mg tablet 25 mg PO TID PRN anxiety #90 tabs 04/26/24 Unknown Rx amlodipine 5 mg tablet 5 mg PO QDAY #30 tabs 07/24/24 Rx galantamine 16 mg 24 hr 16 mg PO QAM #30 caps 07/24/24 Rx capsule,extended release primidone 50 mg tablet 50 mg PO BID #60 tabs 07/24/24 Rx rimegepant 75 mg disintegrating 75 mg PO DAILY PRN jose ramon evelyn 06/03/24 07/11/24 Rx tablet (Nurtec ODT) headache #16 tabs Dexcom G7 Sensor (blood-glucose #9 ea 06/13/24 Unknown Rx sensor) metoprolol tartrate 25 mg tablet 25 mg PO BID #180 tab s 06/14/24 07/24/24 Rx metoprolol tartrate 50 mg tablet 50 mg PO BID #180 tab s 06/14/24 07/24/24 Rx atorvastatin 80 mg tablet 80 mg PO QHS CHOLESTEROL LOW ERING 06/21/24 07/24/24 Rx #90 tabs valacyclovir 500 mg tablet 500 mg PO Q12H PRN HSV 08/3007/11/24 History acetaminophen 500 mg tablet 1,000 mg (2 x 500 mg) PO Q 8 7 days 07/27/24 Unknown Rx #0 tabs pregabalin 75 mg capsule 75 mg PO DAILY pain #30 caps
--- NOTE | 2024-09-21 13:59 | EX.ED.DYSGE1 ---
HPI <ROBERT Best - Last Filed: 09/21/24 18:02> History of Present Illness Chief Complaint: GI Bleed Narrative Narrative: 64-year-old female with past medical history of ulcerative colitis s/p bowel resection with high output colostomy, HTN, CAD, DM2, CKD, CHF, chronic back pain states 3 days ago there was a lot of bright red blood in her ileostomy. Yesterday it cleared but today she again has a few bright red blood. She is also having intermittent abdominal cramping. She states the area is draining so much it is hard to keep the bag adhered to her skin. Due to her high output ileostomy she gets IV fluids through her med port twice a week. She denies fever or chills or nausea or vomiting. She is on aspirin and Plavix due to history of CABG and 11 stents. She follows with Dr. Andino. Her original large bowel resection with ileostomy was done 40 years ago. At a later date was moved from the right to the left side. She also has a surgical history of cholecystectomy, appendectomy, and hysterectomy. She states her bowels have kinked in the past. [facility] <ROBERT Best - Last Filed: 09/21/24 18:02> [facility] Medical History COPD (chronic obstructive pulmonary disease) History of stress test Immunity status testing Chronic kidney disease, stage 3b History of CAD (coronary artery disease) History of chronic kidney disease History of diabetes mellitus CAD (coronary artery disease) Dehydration Falls Hypoxic respiratory failure Hypercapnic respiratory failure Fatigue Low back pain Abnormality of gait and mobility Polyneuropathy Insulin pump titration Presence of insulin pump Health care maintenance Essential tremor Dementia History of stress test Fungal dermatitis Herpes genitalia Encounter for insertion of venous access port Post-menopausal Rash Back pain Arthritis Ambulates with cane History of renal disease High cholesterol Dietary restriction History of pain when walking History of echocardiogram Chronic kidney disease (CKD) stage G4/A2, severely decreased glomerular filtration rate (GFR) between 15-29 mL/min/1.73 square meter and albuminuria creatinine ratio between 30-299 mg/g Chronic kidney disease (CKD) stage G4/A1, severely decreased glomerular filtration rate (GFR) between 15-29 mL/min/1.73 square meter and albuminuria creatinine ratio less than 30 mg/g Ingrown toenail Neuropathy Hyperglycemia due to diabetes mellitus Frequent falls Tremor Depression Chronic pain Rheumatoid arthritis Congestive heart failure (CHF) Lumbar spondylosis Greater trochanteric bursitis CKD (chronic kidney disease) stage 3, GFR 30-59 ml/min Malaise and fatigue Vitamin B12 deficiency History of CAD (coronary artery disease) Memory loss Anxiety and depression Degenerative disc disease at L5-S1 level CAD (coronary artery disease) Cellulitis, abdominal wall Left shoulder pain Gastroparesis Vitamin D deficiency Acute kidney injury CKD (chronic kidney disease), stage IV High output ileostomy MGUS (monoclonal gammopathy of unknown significance) Elevated anti-tissue transglutaminase (tTG) IgA level Ileostomy present Short bowel syndrome Loss of hearing Wears glasses History of COVID-19 Anxiety Insulin dependent diabetes mellitus Walker as ambulation aid Fatty liver Migraine headache Hx of diabetic gastroparesis Gastric reflux Former smoker BiPAP (biphasic positive airway pressure) dependence Hypertension Cardiology follow-up encounter Myoclonic jerking Chronic narcotic use Avascular necrosis of bone of left hip Chronic back pain Non-alcoholic fatty liver disease Liver mass Ulcerative colitis Nonalcoholic steatohepatitis Chronic respiratory failure Smoking greater than 20 pack years Obesity Chronic respiratory failure with hypoxia, on home O2 therapy Diabetic gastroparesis Secondary pulmonary arterial hypertension Chronic diastolic (congestive) heart failure Type 2 diabetes mellitus with diabetic polyneuropathy BMI 31.0-31.9,adult Depression with anxiety Arthritis Menieres disease Hyperlipidemia Psoriasis Obstructive sleep apnea FCHL (familial combined hyperlipidemia) DM2 (diabetes mellitus, type 2) Home Medications ?Medication ?Instructions ?Recorded ?Last Taken ?Type cyclobenzaprine 10 mg tablet 10 mg PO TID PRN muscle spasm #30 02/24/23 07/23/24 Rx tabs diphenoxylate-atropine 2.5 1 tab PO TID PRN diarrhea 06/21/23 09/04/23 History mg-0.025 mg tablet (Lomotil) isosorbide dinitrate 30 mg tablet 30 mg PO BID heart #60 tabs 12/08/23 07/24/24 Rx hyoscyamine sulfate 0.125 mg tablet 0.125 mg PO BID-QID PRN dyspepsia 12/23/23 07/18/24 History fluticasone propionate 50 2 spray intranasal DAILY allergies 01/04/24 07/24/24 Rx mcg/actuation nasal #16 grams spray,suspension (Flonase Allergy Relief) clopidogrel 75 mg tablet 75 mg PO DAILY anti platelet #28 02/02/24 07/24/24 Rx TABLETS triamcinolone acetonide 0.1 % 1 applic topical DAILY PRN 02/17/24 07/24/24 History topical ointment psoriasis aspirin 81 mg tablet,delayed 81 mg PO DAILY heart health #30 02/24/24 07/24/24 Rx release tabs nitroglycerin 0.4 mg sublingual 0.4 mg sublingual Q5-15M PRN chest 02/24/24 Unknown Rx tablet pain #25 tabs evolocumab 140 mg/mL subcutaneous 140 mg subcut Q2W #6 mL 02/29/24 07/22/24 Rx pen injector (Geraldine Collins) dicyclomine 10 mg capsule 10 mg PO BID PRN stomach 03/11/24 07/23/24 History pantoprazole 40 mg tablet,delayed 40 mg PO BID GERD #60 tabs 03/29/24 07/24/24 Rx release (Protonix) cholecalciferol (vitamin D3) 1,250 1,250 mcg PO .monthly vit #14 caps 04/05/24 Unknown Rx mcg (50,000 unit) capsule buprenorphine 10 mcg/hour weekly 1 patch transdermal Q7D 04/24/24 07/22/24 History transdermal patch (Butrans) albuterol sulfate 90 mcg/actuation 2 puff inhalation Q4-6H PRN SOB 04/26/24 Unknown Rx aerosol inhaler #8.5 grams hydroxyzine HCl 25 mg tablet 25 mg PO TID PRN anxiety #90 tabs 04/26/24 Unknown Rx amlodipine 5 mg tablet 5 mg PO QDAY #30 tabs 05/15/24 07/24/24 Rx galantamine 16 mg 24 hr 16 mg PO QAM #30 caps 06/03/24 07/24/24 Rx capsule,extended release primidone 50 mg tablet 50 mg PO BID #60 tabs 06/03/24 07/24/24 Rx rimegepant 75 mg disintegrating 75 mg PO DAILY PRN migraine 06/03/24 07/11/24 Rx tablet (Nurtec ODT) headache #16 tabs Dexcom G7 Sensor (blood-glucose #9 ea 06/13/24 Unknown Rx sensor) metoprolol tartrate 25 mg tablet 25 mg PO BID #180 tabs 06/14/24 07/24/24 Rx metoprolol tartrate 50 mg tablet 50 mg PO BID #180 tabs 06/14/24 07/24/24 Rx atorvastatin 80 mg tablet 80 mg PO QHS CHOLESTEROL LOWERING 06/21/24 07/24/24 Rx #90 tabs valacyclovir 500 mg tablet 500 mg PO Q12H PRN HSV 07/11/24 07/11/24 History acetaminophen 500 mg tablet 1,000 mg (2 x 500 mg) PO Q8 7 days 07/27/24 Unknown Rx #0 tabs pregabalin 75 mg capsule 75 mg PO DAILY pain #30 caps 08/04/24 Unknown Rx fluticasone fur. 100 mcg-umeclid 1 inh inhalation QDAY #14 ea 08/09/24 Unknown Rx 62.5 mcg-vilant 25 mcg inhalat.powder (Trelegy Ellipta) duloxetine 60 mg capsule,delayed 60 mg PO BID mental health #60 caps 09/07/24 Unknown Rx release insulin pump cart,auto,BT,G6/7 #45 ea 09/11/24 Unknown Rx (Omnipod 5 G6-G7 Pods (Gen 5) subcutaneous cartridge) lamotrigine 200 mg tablet 200 mg PO DAILY mood 09/11/24 Unknown History tramadol 50 mg tablet 50 mg PO BID PRN 09/12/24 Unknown History insulin lispro 200 unit/mL (3 mL) 220 unit (1.1 mL) subcut QDAY 09/14/24 Unknown Rx subcutaneous pen (Humalog KwikPen diabetes #99 mL U-200 Insulin) Allergy/AdvReac Type Severity Reaction Status Date / Time cinnamon (Cinnamon) Allergy Severe Anaphylaxis Verified 09/21/24 13:09 Influenza Virus Vaccines Allergy Severe Shortness Verified 09/21/24 13:09 of breath liraglutide (From Victoza) Allergy Severe Anaphylaxis Verified 09/21/24 13:09 ciprofloxacin Allergy Intermediate Swelling Verified 09/21/24 13:09 metformin (From Glucophage) Allergy Mild Nausea Verified 09/21/24 13:09 metronidazole (From Flagyl) Allergy Hives Verified 09/21/24 13:09 Metronidazole HCl (From Allergy Hives Verified 09/21/24 13:09 Flagyl) Penicillins Allergy Hives Verified 09/21/24 13:09 Sulfa (Sulfonamide Allergy Hives Verified 09/21/24 13:09 Antibiotics) ranolazine AdvReac Nausea/Vom/ Verified 09/21/24 13:09 Diarrhea Myobtys-VAB-KoP Reductase AdvReac Nausea/joints Verified 09/21/24 13:09 Inhibitor (Olmuday-Gim-Yzs ache Reductase Inhibitor) Family History Mother CVA (cerebral vascular accident) Diabetes Brother Heart disease of CAD at 65 Myocardial infarction Pancreatitis Father Cancer lymphomia Lymphoma Grandmother Myocardial infarction of [place] in her 70s Sister COPD (chronic obstructive pulmonary disease) Surgical History History of vascular access device History of colonoscopy History of esophagogastroduodenoscopy (EGD) History of appendectomy History of coronary artery stent placement H/O total hip arthroplasty Status post total hip replacement, left History of cardiac catheterization History of History of cholecystectomy H/O coronary artery bypass surgery (05/18/12) History of coronary artery stent placement (01/12/18) H/O sinus surgery history closed fissure Ileostomy status H/O colectomy left thumb surgery H/O total hysterectomy ileostomy Social History household members: spouse and none Smoking Status: Former smoker quit date: 03/08/12 how long ago did patient quit smoking: quit in 2012; 0.5-1ppd x 30yrs alcohol intake: never substance use type: does not use diet: diabetic caffeine: No eating out: 1-3 times/week what type of physical activity do you participate in: none seatbelt use: always do you feel safe at home: Yes ROS <ROBERT Best - Last Filed: 09/21/24 18:02> ROS ED ROS Narrative Constitutional: Negative for fever, chills, malaise. GI: Positive for abdominal pain, no nausea or vomiting. EXAM <ROBERT Best - Last Filed: 09/21/24 18:02> Physical Exam Narrative Exam Narrative: CONST: Patient sitting in no acute distress. EYES: Normal inspection. NECK: Normal inspection. RESP: No respiratory distress, CTAB. CVS: Regular rate and rhythm, no murmur, no gallop. ABD: Abdomen with multiple surgical scars and rolls. Ileostomy left lower abdomen. Tender periumbilically, no guarding or rebound. SKIN: Color normal, no rash, warm, dry, intact. EXTREMITIES: Normal appearance, no pedal edema. NEURO: Alert and answering questions appropriately. PSYCH: Normal affect. Const Vital Signs: 09/21/24 13:07 09/21/24 15:06 09/21/24 17:02 Temperature 98.2 F Temperature Source Oral Pulse Rate 84 77 Respiratory Rate 16 14 Blood Pressure 170/72 H 189/73 H 218/85 H Blood Pressure Mean 104 111 129 Pulse Ox 96 96 Oxygen Delivery Method Room Air Room Air 09/21/24 17:28 09/21/24 18:23 Temperature 98.0 F Temperature Source Pulse Rate 79 90 Respiratory Rate 18 16 Blood Pressure 209/65 H 150/76 H Blood Pressure Mean 113 100 Pulse Ox 99 100 Oxygen Delivery Method Room Air <Dr. Burton Chavez DO - Last Filed: 09/21/24 23:29> Physical Exam Const Vital Signs: 09/21/24 13:07 09/21/24 15:06 09/21/24 17:02 Temperature 98.2 F Temperature Source Oral Pulse Rate 84 77 Respiratory Rate 16 14 Blood Pressure 170/72 H 189/73 H 218/85 H Blood Pressure Mean 104 111 129 Pulse Ox 96 96 Oxygen Delivery Method Room Air Room Air 09/21/24 17:28 09/21/24 18:23 Temperature 98.0 F Temperature Source Pulse Rate 79 90 Respiratory Rate 18 16 Blood Pressure 209/65 H 150/76 H Blood Pressure Mean 113 100 Pulse Ox 99 100 Oxygen Delivery Method Room Air MDM <ROBERT Best - Last Filed: 09/21/24 18:02> [facility] Narrative Medical decision making narrative: Consults: GI, Dr. Andino Current includes but not limited to skin breakdown, anemia, GI bleed, diverticulosis, diverticulitis Patient initially presented for bleeding from her left lower abdominal ileostomy due to history of ulcerative colitis. Initially she was worked up because of GI bleed with reported bright red bleeding. She appears well, nontoxic. She was hypertensive which is chronic with stable vital signs. Abdomen is soft with mild tenderness to the right of the ileostomy but no peritoneal signs. Labs overall are unremarkable with white count of 10.9 and hemoglobin 11.3 but is higher than previous. Electrolytes are normal. BUN 43, creatinine 1.82 looks within her range of chronic kidney disease. CT scan shows an incidental left kidney lesion which will need outpatient follow-up but no other acute findings. After bag was removed and closer examination of the stoma there is skin at the superior portion is torn off and the bleeding is from skin down. The patient states she had called [place] [facility] and they told her they do not deal with ileostomies but I called Dr. Andino and he states that he routinely sends his patients to wound care and they have a stoma nurse. The patient's skin continues to ooze blood and she states she cannot afford to run through this many colostomy bags and she is requesting admission. I discussed this is not criteria for admission but she is insistent. I spoke with the hospitalist who states she does not need admitted. Patient was given referral to the wound care center and again instructed to call Dr. Andino's office as he said they can start the referral process to wound care and to a colorectal specialist if desired. She was discharged in stable condition. Of note she forgot to take her morning blood pressure medications and became hypertensive around 218/85. She was given IV Lopressor 5 x 1 and it did not come down so I ordered IV hydralazine 20 mg and blood pressure is trending down appropriately. Lab Data Attestation: I reviewed the patient's lab results. Labs: Laboratory Results - last 24 hr 09/21/24 14:16 WBC 10.9 RBC 4.16 L Hgb 11.3 L Hct 35.6 L MCV 85.6 MCH 27.2 MCHC 31.7 L RDW Std Deviation 49.7 H RDW Coeff of Jan 15.9 H Plt Count 210 MPV 11.4 Immature Gran % (Auto) 1.000 H Neut % (Auto) 49.9 Lymph % (Auto) 31.5 Letcher % (Auto) 6.6 Eos % (Auto) 10.4 H Baso % (Auto) 0.6 Absolute Neuts (auto) 5.4 Absolute Lymphs (auto) 3.42 Nucleated RBC % 0 Sodium 141 Potassium 4.5 Chloride 106 Carbon Dioxide 23.2 Anion Gap 12 BUN 43 H Creatinine 1.82 H Estim Creat Clear Calc 36.07 L Est GFR (MDRD) Non-Af 30 L BUN/Creatinine Ratio 23.4 H Glucose 132 H Calcium 10.2 Total Bilirubin 0.27 AST 28 ALT 15 Alkaline Phosphatase 165 H Total Protein 7.1 Albumin 4.0 Globulin 3.1 Albumin/Globulin Ratio 1.3 Radiography Diagnostic Testing: Clinical Impression(s) from Imaging Studies Abdomen/Pelvis CT 09/21/24 15:22 IMPRESSION: 1. No acute intra-abdominal abnormality. 2. Indeterminate lesion at the upper pole of the left kidney measuring 1.9 cm. Recommend nonemergent renal MRI or CT for further evaluation if not previously performed. Reading Location: [id number] <Dr. Burton Chavez, DO - Last Filed: 09/21/24 23:29> [facility] Narrative Medical decision making narrative: Consults: GI, Dr. Andino Current includes but not limited to skin breakdown, anemia, GI bleed, diverticulosis, diverticulitis Patient initially presented for bleeding from her left lower abdominal ileostomy due to history of ulcerative colitis. Initially she was worked up because of GI bleed with reported bright red bleeding. She appears well, nontoxic. She was hypertensive which is chronic with stable vital signs. Abdomen is soft with mild tenderness to the right of the ileostomy but no peritoneal signs. Labs overall are unremarkable with white count of 10.9 and hemoglobin 11.3 but is higher than previous. Electrolytes are normal. BUN 43, creatinine 1.82 looks within her range of chronic kidney disease. CT scan shows an incidental left kidney lesion which will need outpatient follow-up but no other acute findings. After bag was removed and closer examination of the stoma there is skin at the superior portion is torn off and the bleeding is from skin down. The patient states she had called [place] [facility] and they told her they do not deal with ileostomies but I called Dr. Andino and he states that he routinely sends his patients to wound care and they have a stoma nurse. The patient's skin continues to ooze blood and she states she cannot afford to run through this many colostomy bags and she is requesting admission. I discussed this is not criteria for admission but she is insistent. I spoke with the hospitalist who states she does not need admitted. Patient was given referral to the wound care center and again instructed to call Dr. Andino's office as he said they can start the referral process to wound care and to a colorectal specialist if desired. She was discharged in stable condition. Of note she forgot to take her morning blood pressure medications and became hypertensive around 218/85. She was given IV Lopressor 5 x 1 and it did not come down so I ordered IV hydralazine 20 mg and blood pressure is trending down appropriately. Supervisory Physician Note Patient was seen and examined with the Advanced Practice Provider. Nursing notes and vital signs have been reviewed. Pertinent old records have been reviewed. I agree with the essential elements of the GARRET's history, physical exam, assessment, and plan. The differential diagnosis and management options were discussed with the GARRET. I participated in determining and agree with the management, procedures, final impression and disposition as documented. See changes noted by me. Please see addendum or separate note for any additional details. Patient states that the bright red blood from her ileostomy is secondary to bleeding around the ileostomy versus coming from the stool itself. Colostomy bag was removed and patient has multiple skin excoriations with minimal bleeding. There is no bleeding to the ileostomy itself. Ileostomy is pink. Stool output is green and liquid without any gross blood. Patient states that she is tried to follow-up with her wound clinic here in [facility] but they do not have a ostomy nurse. She states she was told that the ostomy nurse is only present here in the hospital. She does not follow with a colorectal surgeon, only Dr. Andino. We did try to obtain a consult from the ostomy nurse down here in the emergency department however she had already left for the day. Recommended barrier cream over the excoriations however patient declined. Patient did obtain a GI workup. She did not have any significant tenderness on my exam. CBC without leukocytosis. Patient has baseline anemia. BMP shows baseline CKD. No transaminitis. CT abdomen pelvis with no acute intra-abdominal abnormality. Patient has an indeterminate lesion in the upper pole of the left kidney, this will need further workup outpatient. She was hypertensive here in the emergency department. She has a history of hypertension. States she did not take her antihypertensives today. Therefore she was given labetalol and hydralazine with improvement of blood pressure. At this point in time, patient's bleeding is secondary to skin excoriations. Dr. Andino was consulted, he states there are ostomy nurses at the wound care and recommended following up with them and himself. We did inform the patient of this. Patient does not feel comfortable discharging home. Requesting to be admitted. Patient does not meet admission criteria as however will discuss with the hospitalist. Hospitalist declined admission. Patient stable to follow-up. Return precautions explained. Patient discharged home. Impression: 1. Bleeding excoriations from ileostomy irritation 2. History of ileostomy with high output 3. Hypertension with history of hypertension 4. CKD 5. Chronic anemia Lab Data Labs: Laboratory Results - last 24 hr 09/21/24 14:16 WBC 10.9 RBC 4.16 L Hgb 11.3 L Hct 35.6 L MCV 85.6 MCH 27.2 MCHC 31.7 L RDW Std Deviation 49.7 H RDW Coeff of Jan 15.9 H Plt Count 210 MPV 11.4 Immature Gran % (Auto) 1.000 H Neut % (Auto) 49.9 Lymph % (Auto) 31.5 Letcher % (Auto) 6.6 Eos % (Auto) 10.4 H Baso % (Auto) 0.6 Absolute Neuts (auto) 5.4 Absolute Lymphs (auto) 3.42 Nucleated RBC % 0 Sodium 141 Potassium 4.5 Chloride 106 Carbon Dioxide 23.2 Anion Gap 12 BUN 43 H Creatinine 1.82 H Estim Creat Clear Calc 36.07 L Est GFR (MDRD) Non-Af 30 L BUN/Creatinine Ratio 23.4 H Glucose 132 H Calcium 10.2 Total Bilirubin 0.27 AST 28 ALT 15 Alkaline Phosphatase 165 H Total Protein 7.1 Albumin 4.0 Globulin 3.1 Albumin/Globulin Ratio 1.3 Radiography Diagnostic Testing: Clinical Impression(s) from Imaging Studies Abdomen/Pelvis CT 09/21/24 15:22 IMPRESSION: 1. No acute intra-abdominal abnormality. 2. Indeterminate lesion at the upper pole of the left kidney measuring 1.9 cm. Recommend nonemergent renal MRI or CT for further evaluation if not previously performed. Reading Location: [id number] Discharge Plan Triage Chief Complaint: GI Bleed ED Midlevel Provider: Sherri Marie ED Provider: Burton Chavez Dx/Rx/DC Orders Clinical Impression: H/O ileostomy, Ulcerative colitis, Skin breakdown, Chronic anemia, Lesion of left [place] kidney Instructions: Colostomy: Changing Your Pouch Prescriptions: No Action cyclobenzaprine 10 mg tablet 10 mg PO TID PRN (Reason: muscle spasm) Qty: 30 0RF aspirin 81 mg tablet,delayed release (DR/EC) 81 mg PO DAILY Qty: 30 11RF nitroglycerin 0.4 mg tablet, sublingual 0.4 mg sublingual Q5-15M PRN (Reason: chest pain) Qty: 25 3RF Rx Instructions: do not exceed 3 doses per episode hyoscyamine sulfate 0.125 mg tablet 0.125 mg PO BID-QID PRN (Reason: dyspepsia) galantamine 16 mg capsule,ext rel. pellets 24 hr 16 mg PO QAM Qty: 30 5RF Rx Instructions: Administer with breakfast. Nurtec ODT 75 mg tablet,disintegrating 75 mg PO DAILY PRN (Reason: migraine headache) Qty: 16 2RF primidone 50 mg tablet 50 mg PO BID Qty: 60 5RF Humalog KwikPen Insulin 200 unit/mL (3 mL) insulin pen 220 unit subcut QDAY Qty: 99 1RF Patient Comments: turned pump off on Wednesday07/22/24 Rx Instructions: via insulin pump tramadol 50 mg tablet 50 mg PO BID PRN Trelegy Ellipta 100-62.5-25 mcg blister with device 1 inh inhalation QDAY Qty: 14 0RF diphenoxylate-atropine [Lomotil] 2.5-0.025 mg tablet 1 tab PO TID PRN (Reason: diarrhea) triamcinolone acetonide 0.1 % ointment 1 applic topical DAILY PRN (Reason: psoriasis) buprenorphine [Butrans] 10 mcg/hour patch weekly 1 patch transdermal Q7D valacyclovir 500 mg tablet 500 mg PO Q12H PRN (Reason: HSV) acetaminophen 500 mg Tablet 1,000 mg PO Q8 7 Days Qty: 0 0RF dicyclomine 10 mg Capsule 10 mg PO BID PRN (Reason: stomach) lamotrigine 200 mg tablet 200 mg PO DAILY isosorbide dinitrate 30 mg tablet 30 mg PO BID Qty: 60 11RF fluticasone propionate [Flonase Allergy Relief] 50 mcg/actuation spray,suspension 2 spray intranasal DAILY Qty: 16 3RF Rx Instructions: administer into each nostril clopidogrel 75 mg tablet 75 mg PO DAILY Qty: 28 11RF Repatha SureClick 140 mg/mL pen injector 140 mg subcut Q2W Qty: 6 3RF pantoprazole [Protonix] 40 mg tablet,delayed release (DR/EC) 40 mg PO BID Qty: 60 11RF cholecalciferol (vitamin D3) 1,250 mcg (50,000 unit) capsule 1,250 mcg PO .monthly Qty: 14 1RF hydroxyzine HCl 25 mg tablet 25 mg PO TID PRN (Reason: anxiety) Qty: 90 2RF albuterol sulfate 90 mcg/actuation HFA aerosol inhaler 2 puff INHALATION Q4-6H PRN (Reason: SOB) Qty: 8.5 0RF amlodipine 5 mg tablet 5 mg PO QDAY Qty: 30 11RF (DME) Dexcom G7 Sensor Device See Rx Instructions .Route Qty: 9 3RF Rx Instructions: change every 10 days metoprolol tartrate 25 mg tablet 25 mg PO BID Qty: 180 3RF Rx Instructions: Take with 50 mg tablet to = 75 mg BID metoprolol tartrate 50 mg tablet 50 mg PO BID Qty: 180 3RF Rx Instructions: Take with 25 mg tablet to = 75 mg BID atorvastatin 80 mg tablet 80 mg PO QHS Qty: 90 1RF Patient Comments: cholesterol pregabalin 75 mg capsule 75 mg PO DAILY Qty: 30 1RF duloxetine 60 mg capsule,delayed release(DR/EC) 60 mg PO BID Qty: 60 2RF (DME) Omnipod 5 G6-G7 Pods (Gen 5) Cartridge See Rx Instructions .Route Qty: 45 1RF Rx Instructions: change every 48 hours Primary Care Provider: Mala Mcgrath Referrals: Mala Mcgrath MD [Primary Care Provider] - Activity Restrictions/Additional Instructions: Overall your blood work looks good, your hemoglobin level is 11.3 which is higher than previous. I think the bleeding is from the skin breakdown around your ostomy. Dr. Andino said the wound center has a stoma nurse that you should be able to follow-up there. If you want a referral to a colorectal specialist in general, you can call Dr. Andino's office and they will put in a referral for [facility]. There is also an abnormal kidney lesion that needs follow-up by your primary care doctor. Print Language: Irish Disposition Disposition: Home, Self Care Discharge Date/Time: 09/21/24 18:56
[2024-09-21 14:30] LABS: Hematocrit 35.6 % (37-47); Hemoglobin 11.3 g/dL (12.0-15.0); Immature Granulocytes Count 0.110 X10^3/uL (0.0-0.0); Mean Corp Hgb Conc 31.7 g/dL (32-36); Mean Corpuscular Volume 85.6 fL (81-99); Mean Platelet Vol. 11.4 fl (6.2-12.0); NRBC Flagged by Analyzer 0 % (0-5); Platelet Count 210 K/mm3 (150-450); RBC Distribution Width CV 15.9 % (11.6-14.6); RBC Distribution Width SD 49.7 fl (35.1-43.9); Red Blood Count 4.16 M/mm3 (4.2-5.4); White Blood Count 10.9 K/mm3 (4.4-11.0)
[2024-09-21] MEDS: 0.9% Normal Saline (1000mL) 1,000 ML 999 ML IV (15:00)
[2024-09-21 15:04] LABS: AST(SGOT) 28 U/L (<=31); Alanine Aminotransfer ALT/SGPT 15 U/L (<=34); Albumin, Serum 4.0 g/dL (3.4-4.8); Alkaline Phosphatase 165 U/L (35-104); Anion Gap 12 (5-15); BUN 43 mg/dL (4-19); BUN/Creat Ratio 23.4 RATIO (10-20); Calcium,Total 10.2 mg/dL (7.6-11.0); Carbon Dioxide 23.2 mmol/L (21.0-32.0); Chloride 106 mmol/L (98-108); Estimated Creatinine Clearance 36.07 ml/min (50-250); Globulin 3.1 g/dL (2.2-4.2); Glucose 132 mg/dL (70-99); Potassium 4.5 mmol/L (3.3-5.1)
[2024-09-21 15:06] VITALS: BP 189/73; PULSE 77; RESP 14; O2SAT 96
--- NOTE | 2024-09-21 15:22 | CT_ITS ---
PROCEDURE: ABDOMEN/PELVIS W IV CONT ONLY 09/21/2024 REASON FOR EXAM: ABDOMINAL PAIN, BLOOD IN ILEOSTOMY TECHNIQUE: ABDOMEN/PELVIS W IV CONT ONLY Coronal and Sagittal reconstruction series were provided. CONTRAST: Isovue 300 VOLUME: 75 mL One or more dose reduction techniques were used (e.g., Automated exposure control, adjustment of the mA and/or kV according to patient size, use of iterative reconstruction technique. RADIATION DOSE SUMMARY: CTDlvol: 22.4 mGy DLP: 1303 mGycm COMPARISON: CT abdomen and pelvis on 03/10/2024 FINDINGS: Lung bases: Mild dependent atelectasis. Multivessel coronary calcification. Liver: Unremarkable Gallbladder: Not visualized, likely surgically absent Spleen: Unremarkable Pancreas: Normal size without evidence of mass surrounding inflammation or ductal dilation. Adrenals: Unremarkable Kidneys: No hydronephrosis or stone. Simple cyst at the lower pole of the right kidney is unchanged. There is an indeterminate lesion measuring 1.9 cm at the upper pole of the left kidney (series 2, image 40). Bladder: Unremarkable Reproductive Organs: Prior hysterectomy. Adnexal regions are unremarkable. Bowel: Postoperative changes from colectomy, with ostomy in the left lower quadrant of the abdomen. No bowel obstruction or inflammation. Lymph nodes: No suspicious lymph node enlargement. Vasculature: Mild diffuse atherosclerotic calcifications are noted. Bones: Left hip arthroplasty. Multilevel degenerative changes of the spine. Median sternotomy wires partially imaged. Bone island in the right sacrum. Soft tissues: Unremarkable. CT/Abdomen/Pelvis W IV Cont ONLY IMPRESSION: 1. No acute intra-abdominal abnormality. 2. Indeterminate lesion at the upper pole of the left kidney measuring 1.9 cm. Recommend nonemergent renal MRI or CT for further evaluation if not previously performed. Reading Location: [id number]
[2024-09-21 17:02] VITALS: BP 218/85
[2024-09-21 17:28] VITALS: BP 209/65; PULSE 79; RESP 18; O2SAT 99
[2024-09-21 18:23] VITALS: BP 150/76; PULSE 90; RESP 16; TEMP 36.7; O2SAT 100
--- NOTE | 2024-09-26 10:06 | WOUNDNOTE ---
Called and talked with patient about ostomy issues. It sounds like bleeding is more of an issue than problems with placing the appliances. patient states she has an area that is continually bleeding and has an area on the stoma that is bleeding as well. pt plans to call the surgeon to have them look at it and possibly cauterize the bleeding areas. can assist pt with the parastomal skin if needed, but pt is concerned with the bleeding areas. this nurse cannot fix the bleeding areas. pt aware to call if more issues arise with placing the appliances.
== END 2024-09-21 18:56 | disposition home or self-care (01) ==
PROVIDERS: Emergency Provider Surgery; PCP Internal Medicine; Visit Provider Surgery
DX: S30.811A Abrasion of abdominal wall, initial encounter (principal); Z93.2 Ileostomy status; M06.9 Rheumatoid arthritis, unspecified; I13.0 Hypertensive heart and chronic kidney disease with heart failure and stage 1 through stage 4 chronic kidney disease, or unspecified chronic kidney disease; I50.32 Chronic diastolic (congestive) heart failure; F03.93 Unspecified dementia, unspecified severity, with mood disturbance; F03.94 Unspecified dementia, unspecified severity, with anxiety; J44.9 Chronic obstructive pulmonary disease, unspecified; K51.90 Ulcerative colitis, unspecified, without complications; E11.22 Type 2 diabetes mellitus with diabetic chronic kidney disease; E11.42 Type 2 diabetes mellitus with diabetic polyneuropathy; E11.43 Type 2 diabetes mellitus with diabetic autonomic (poly)neuropathy; Z79.4 Long term (current) use of insulin; N18.32 Chronic kidney disease, stage 3b; I25.10 Atherosclerotic heart disease of native coronary artery without angina pectoris; G89.29 Other chronic pain; M54.9 Dorsalgia, unspecified; D64.9 Anemia, unspecified; K31.84 Gastroparesis; L40.9 Psoriasis, unspecified; E55.9 Vitamin D deficiency, unspecified; K21.9 Gastro-esophageal reflux disease without esophagitis; E78.00 Pure hypercholesterolemia, unspecified; G47.33 Obstructive sleep apnea (adult) (pediatric); N28.89 Other specified disorders of kidney and ureter; G43.909 Migraine, unspecified, not intractable, without status migrainosus; Z95.1 Presence of aortocoronary bypass graft; Z79.51 Long term (current) use of inhaled steroids; Z96.41 Presence of insulin pump (external) (internal); Z79.82 Long term (current) use of aspirin; Z79.02 Long term (current) use of antithrombotics/antiplatelets; Z90.49 Acquired absence of other specified parts of digestive tract; Z79.899 Other long term (current) drug therapy; Z87.891 Personal history of nicotine dependence
CPT/HCPCS: 36591; 74177; 80053; 85025; 96361; 96374; 96375; 99284; Q9967; A4216; J2405

== ENCOUNTER 2024-09-25 09:55 | Outpatient (CLI) | payer MEDICARE, MEDICAID, SELFPAY ==
[2024-06-27 09:22] VITALS: BMI 30.9
[2024-09-25] MEDS: Lactated Ringers 1,000 ML 1000 ML IV (10:27)
[2024-09-25 10:33] VITALS: BP 149/65; PULSE 73; RESP 16; TEMP 35.9; O2SAT 94; BMI 33.6
[2024-09-25] MEDS: 0.9% NaCl Peripheral Flush Adult IV (11:36)
[2024-09-25 11:38] VITALS: BP 158/62; PULSE 76; RESP 16; TEMP 35.5; O2SAT 95
== END 2024-09-25 23:59 | disposition home or self-care (01) ==
LOC: MEDOUTP 09:56
PROVIDERS: PCP Internal Medicine; Referring Provider Student in an Organized Health Care Education/Training Program; Visit Provider Student in an Organized Health Care Education/Training Program
DX: E86.0 Dehydration (principal); R19.8 Other specified symptoms and signs involving the digestive system and abdomen
CPT/HCPCS: 96360; A4216

== ENCOUNTER 2024-09-27 10:53 | Outpatient (CLI) | payer MEDICARE, MEDICAID, SELFPAY ==
[2024-06-27 09:22] VITALS: BMI 30.9
[2024-09-27 11:08] VITALS: BP 119/55; PULSE 68; RESP 16; TEMP 35.8; O2SAT 94; BMI 33.6
[2024-09-27] MEDS: 0.9 % NaCl (Sterile) Posiflush 10 mL IV (11:10)
[2024-09-27] MEDS: Lactated Ringers 1,000 ML 1000 ML IV (11:10)
[2024-09-27] MEDS: 0.9% NaCl Peripheral Flush Adult IV (12:25)
[2024-09-27 12:30] VITALS: BP 144/60; PULSE 63; RESP 16
== END 2024-09-27 23:59 | disposition home or self-care (01) ==
LOC: MEDOUTP 10:54
PROVIDERS: PCP Internal Medicine; Referring Provider Student in an Organized Health Care Education/Training Program; Visit Provider Student in an Organized Health Care Education/Training Program
DX: E86.0 Dehydration (principal); R19.8 Other specified symptoms and signs involving the digestive system and abdomen
CPT/HCPCS: 96360; A4216

== ENCOUNTER 2024-10-04 12:17 | Outpatient (CLI) | payer MEDICARE, MEDICAID, SELFPAY ==
[2024-06-27 09:22] VITALS: BMI 30.9
[2024-10-04] MEDS: Lactated Ringers 1,000 ML 999 ML IV (12:26)
[2024-10-04 12:32] VITALS: BP 135/62; PULSE 82; RESP 14; TEMP 36.2; O2SAT 95
[2024-10-04] MEDS: 0.9% NaCl Peripheral Flush Adult IV (13:38)
[2024-10-04 13:39] VITALS: BP 115/65; PULSE 64; RESP 16; TEMP 36.6; O2SAT 97
== END 2024-10-04 23:59 | disposition home or self-care (01) ==
LOC: MEDOUTP 12:18
PROVIDERS: PCP Internal Medicine; Referring Provider Student in an Organized Health Care Education/Training Program; Visit Provider Student in an Organized Health Care Education/Training Program
DX: E86.0 Dehydration (principal); R19.8 Other specified symptoms and signs involving the digestive system and abdomen
CPT/HCPCS: 96360; A4216

== ENCOUNTER 2024-10-09 09:34 | Outpatient (CLI) | payer MEDICARE, MEDICAID, SELFPAY ==
[2024-06-27 09:22] VITALS: BMI 30.9
[2024-10-09 09:45] VITALS: BP 117/56; PULSE 72; RESP 16; TEMP 36.3; O2SAT 96
[2024-10-09] MEDS: Lactated Ringers 1,000 ML 999 ML IV (09:54)
[2024-10-09] MEDS: 0.9% NaCl Peripheral Flush Adult IV (11:03)
[2024-10-09 11:04] VITALS: BP 140/54; PULSE 76; RESP 16
== END 2024-10-09 23:59 | disposition home or self-care (01) ==
LOC: MEDOUTP 09:35
PROVIDERS: PCP Internal Medicine; Referring Provider Student in an Organized Health Care Education/Training Program; Visit Provider Student in an Organized Health Care Education/Training Program
DX: E86.0 Dehydration (principal); R19.8 Other specified symptoms and signs involving the digestive system and abdomen
CPT/HCPCS: 96360; A4216

== ENCOUNTER 2024-10-16 11:14 | Outpatient (CLI) | payer MEDICARE, MEDICAID, SELFPAY ==
[2024-06-27 09:22] VITALS: BMI 30.9
[2024-10-16] MEDS: 0.9% NaCl Peripheral Flush Adult IV ×2 (11:31→12:42)
[2024-10-16] MEDS: Lactated Ringers 1,000 ML 999 ML IV (11:31)
[2024-10-16 11:39] VITALS: BP 128/64; PULSE 77; RESP 16; TEMP 36.6; O2SAT 97; BMI 32.7
[2024-10-16 12:18] LABS: AST(SGOT) 22 U/L (<=31); Alanine Aminotransfer ALT/SGPT 14 U/L (<=34); Albumin, Serum 3.7 g/dL (3.4-4.8); Alkaline Phosphatase 163 U/L (35-104); Bilirubin, Direct 0.14 mg/dL (0.00-0.30); Cholesterol 98 mg/dL (<=200); Globulin 3.2 g/dL (2.2-4.2); Low Density Lipoprotein Calc. 6 mg/dL; Triglycerides 200 mg/dL; Very Low Density Lipoprotein 40 mg/dL (5-40); cholesterol:hdl ratio screen 1.86
[2024-10-16 12:42] VITALS: BP 131/54; PULSE 69; RESP 16; TEMP 36.4
[2024-10-16 19:40] LABS: Xtra Tube EP Lab EXTRA TUBE
== END 2024-10-16 23:59 | disposition home or self-care (01) ==
LOC: MEDOUTP 11:16
PROVIDERS: PCP Internal Medicine; Referring Provider Student in an Organized Health Care Education/Training Program; Visit Provider Student in an Organized Health Care Education/Training Program
DX: E86.0 Dehydration (principal); R19.8 Other specified symptoms and signs involving the digestive system and abdomen; E78.1 Pure hyperglyceridemia; I25.10 Atherosclerotic heart disease of native coronary artery without angina pectoris; K76.0 Fatty (change of) liver, not elsewhere classified
CPT/HCPCS: 96360; 36415; 36591; 80061; 80076; A4216

== ENCOUNTER 2024-10-19 11:38 | Outpatient (CLI) | payer MEDICARE, MEDICAID, SELFPAY ==
[2024-06-27 09:22] VITALS: BMI 30.9
[2024-10-19 12:00] VITALS: BP 109/61; PULSE 78; RESP 16; TEMP 36.8; O2SAT 95
[2024-10-19] MEDS: Lactated Ringers 1,000 ML 999 ML IV (12:02)
[2024-10-19] MEDS: 0.9% NaCl Peripheral Flush Adult IV (13:06)
[2024-10-19 13:10] VITALS: BP 144/57; PULSE 73; RESP 16
== END 2024-10-19 23:59 | disposition home or self-care (01) ==
LOC: MEDOUTP 11:38
PROVIDERS: PCP Internal Medicine; Referring Provider Student in an Organized Health Care Education/Training Program; Visit Provider Student in an Organized Health Care Education/Training Program
DX: E86.0 Dehydration (principal); R19.8 Other specified symptoms and signs involving the digestive system and abdomen
CPT/HCPCS: 96360; A4216

== ENCOUNTER 2024-10-23 11:09 | Outpatient (CLI) | payer MEDICARE, MEDICAID, SELFPAY ==
[2024-06-27 09:22] VITALS: BMI 30.9
[2024-10-23] MEDS: Lactated Ringers 1,000 ML 999 ML IV (11:34)
[2024-10-23] MEDS: 0.9% NaCl Peripheral Flush Adult IV (11:36)
[2024-10-23 11:39] VITALS: BP 147/55; PULSE 72; RESP 16; TEMP 36.5; O2SAT 97
[2024-10-23 12:57] VITALS: BP 133/53; PULSE 65; RESP 16; TEMP 36.1; O2SAT 96
== END 2024-10-23 23:59 | disposition home or self-care (01) ==
LOC: MEDOUTP 11:10
PROVIDERS: PCP Internal Medicine; Referring Provider Student in an Organized Health Care Education/Training Program; Visit Provider Student in an Organized Health Care Education/Training Program
DX: E86.0 Dehydration (principal); R19.8 Other specified symptoms and signs involving the digestive system and abdomen
CPT/HCPCS: 96360; 36591; A4216

== ENCOUNTER → 2024-10-23 | Outpatient (CLI) | payer MEDICARE, MEDICAID, SELFPAY ==
[2024-06-27 09:22] VITALS: BMI 30.9
[2024-10-23 12:32] LABS: Albumin, Serum 3.4 g/dL (3.4-4.8); Anion Gap 11 (5-15); BUN 36 mg/dL (4-19); BUN/Creat Ratio 22.3 RATIO (10-20); Calcium,Total 9.1 mg/dL (7.6-11.0); Carbon Dioxide 22.8 mmol/L (21.0-32.0); Chloride 107 mmol/L (98-108); Glucose 167 mg/dL (70-99); Potassium 4.7 mmol/L (3.3-5.1)
[2024-10-23 13:29] LABS: Creatinine, Urine (random) 224.00 mg/dL (28.00-217.00); Protein, Urine (Random) 127.0 mg/dL (0.0-12.0); Protein:Creat Ratio 567 mg/g CRE (0-200)
[2024-10-24 16:09] LABS: Alkaline Phosphatase, Serum 144 IU/L (44-121); Carbohydrate Ag 19-9 2261 13 U/mL (0-35); GGTP 70 IU/L (0-60); IgG, Quant 835 mg/dL (586-1602); Immunoglobulin G, Subclass 1 398 mg/dL (248-810); Immunoglobulin G, Subclass 2 268 mg/dL (130-555); Immunoglobulin G, Subclass 3 60 mg/dL (15-102); Immunoglobulin G, Subclass 4 24 mg/dL (2-96)
== END | disposition home or self-care (01) ==
LOC: LAB 10-24 12:24
PROVIDERS: PCP Internal Medicine; Referring Provider Internal Medicine Nephrology; Visit Provider Internal Medicine Nephrology
DX: N18.32 Chronic kidney disease, stage 3b (principal); K76.0 Fatty (change of) liver, not elsewhere classified
CPT/HCPCS: 80069; 82570; 82784; 82787; 82977; 83516; 84075; 84080; 84156; 86301

== ENCOUNTER 2024-10-25 10:44 | Outpatient (CLI) | payer MEDICARE, MEDICAID, SELFPAY ==
[2024-06-27 09:22] VITALS: BMI 30.9
[2024-10-25 11:16] VITALS: BP 147/62; PULSE 90; RESP 16; TEMP 36.3; O2SAT 93; BMI 33.3
[2024-10-25] MEDS: Lactated Ringers 1,000 ML 999 ML IV (11:16)
[2024-10-25] MEDS: 0.9% NaCl Peripheral Flush Adult IV (12:20)
[2024-10-25 12:23] VITALS: BP 151/60; PULSE 77
== END 2024-10-25 23:59 | disposition home or self-care (01) ==
LOC: MEDOUTP 10:45
PROVIDERS: PCP Internal Medicine; Referring Provider Student in an Organized Health Care Education/Training Program; Visit Provider Student in an Organized Health Care Education/Training Program
DX: E86.0 Dehydration (principal); R19.8 Other specified symptoms and signs involving the digestive system and abdomen
CPT/HCPCS: 96360; A4216

== ENCOUNTER → 2024-10-26 | Outpatient (CLI) | payer MEDICARE, MEDICAID, SELFPAY ==
[2024-06-27 09:22] VITALS: BMI 30.9
--- NOTE | 2024-10-26 12:28 | MRI_ITS ---
PROCEDURE: MRI ABD WITH AND W/O CONTRAST 10/26/2024 REASON FOR EXAM: 2 LESIONS SEEN ON THE LEFT KIDNEY ON CT SCAN TECHNIQUE: MRI ABD WITH AND W/O CONTRAST Multiplanar and multisequence images were obtained. CONTRAST: Clariscan VOLUME: 19 mL COMPARISON: September 21, 2024 FINDINGS: Liver: Non cirrhotic. No mass seen. Biliary: Cholecystectomy. No biliary ductal dilation. No choledocholithiasis. Pancreas: No glandular atrophy. No mass. No pancreas divisum. Spleen: Normal. Adrenals: Normal. Kidneys: Mild perinephric sweat is present. No collecting system dilation seen. Of the right lower pole there is a circumscribed cyst with a thin septation. It shows T1 shortening precontrast and some mild T2 shortening. This measures approximately 1.3 x 1.5 cm. A similar lesion is seen at the superior pole left kidney measuring 1.5 x 2.1 cm. Neither lesion enhances. Sub 5 mm cysts are similar of the left lateral lower pole. Peritoneum / Retroperitoneum: No free fluid, mass or lymphadenopathy. Lymph Nodes: None appear enlarged Major Vessels: Atherosclerosis. No aneurysm. Bones: Unremarkable MRI/MRI Abd WITH and W/O Contrast IMPRESSION: 1. Right lower pole complex cyst with thin septation represents a proteinaceou s or hemorrhagic type cyst. Bosniak 2. No follow-up required. 2. Left upper pole complicated cyst represents a proteinaceous or hemorrhagic type cyst. Bosniak 2. No follow-up required. Similar, subcentimeter cysts are seen in the left lower pole. 3. Cholecystectomy. Reading Location: [id number]
== END | disposition home or self-care (01) ==
LOC: OPMRI 12:26
PROVIDERS: PCP Internal Medicine; Referring Provider Internal Medicine Hematology & Oncology; Visit Provider Internal Medicine Hematology & Oncology
DX: N18.4 Chronic kidney disease, stage 4 (severe) (principal); N28.89 Other specified disorders of kidney and ureter
CPT/HCPCS: 74183; A9575; A4216

== ENCOUNTER → 2024-10-27 | Outpatient (CLI) | payer MEDICARE, MEDICAID, SELFPAY ==
[2024-06-27 09:22] VITALS: BMI 30.9
--- NOTE | 2024-10-27 07:43 | US_ITS ---
PROCEDURE: ABD LIMITED W/ ELASTOGRAPHY REASON FOR EXAM: FATTY LIVER COMPARISON: June 04, 2024. TECHNIQUE: Right upper quadrant abdominal ultrasound. Javier ElastQ Imaging shear wave elastography for non-invasive assessment of liver tissue stiffness. Javier EPIQ Elite. FINDINGS: LIVER: Size: Borderline hepatomegaly. Length: 17.8 cm Echotexture: Diffusely echogenic suggesting fatty infiltration Contour: Normal Lesions: There is a 4.2 cm x 2.7 cm 3 cm echogenic nodular density in the left lobe of the liver. This was faintly seen on prior CT scan dated September 21, 2024. Repeat three-phase CT scan recommended for further evaluation. Elastography: EQI Med: 7.6 kPa EQI Med Los: 1.58 m/s IQR/Med: 20.6 %* GALLBLADDER: Surgically absent. COMMON BILE DUCT: Normal measuring 6 mm . PANCREAS: Normal The kidney measures 10.4 cm x 5.8 cm 5.1 cm. The cortical thickness is 1.2 cm. There is a 1.9 cm 2 cm 1.6 cm complex cyst in the inferior pole. No right upper quadrant ascites. US/ABD Limited w/ Elastography IMPRESSION: Mild hepatic fibrosis. Hepatomegaly and diffuse fatty infiltration of the liver. Echogenic nodular density are seen in the peripheral aspect of the left lobe of the liver as described. A repeat CT scan with 3 phase protocol suggested. Complex cyst in the right kidney. Reference Values: SRU <1.37 m/s (5.7kPa): No to mild fibrosis 1.37 m/s - 2.2 m/s: Moderate to severe fibrosis >2.2 m/s (15kPa): Significant fibrosis / cirrhosis METAVIR Score F2 or higher: 1.34 m/s (5.7kPa) F3 or higher: 1.55 m/s (7.3kPa) F4: 1.80 m/s (10kPa) * If the IQR/Med is >30%, the variance in the measurements is a large and the a ccuracy of the measurement may be in question. Reading Location: [id number]
== END | disposition home or self-care (01) ==
LOC: US 07:43
PROVIDERS: PCP Internal Medicine; Referring Provider Internal Medicine Gastroenterology; Visit Provider Internal Medicine Gastroenterology
DX: K76.0 Fatty (change of) liver, not elsewhere classified (principal)
CPT/HCPCS: 76705; 76981

== ENCOUNTER 2024-10-30 11:01 | Outpatient (CLI) | payer MEDICARE, MEDICAID, SELFPAY ==
[2024-06-27 09:22] VITALS: BMI 30.9
[2024-10-30] MEDS: Lactated Ringers 1,000 ML 999 ML IV (11:15)
[2024-10-30 11:16] VITALS: BP 158/59; PULSE 77; RESP 16; TEMP 36.2; O2SAT 95; BMI 33.3
[2024-10-30] MEDS: 0.9% NaCl Peripheral Flush Adult IV (12:22)
[2024-10-30 12:23] VITALS: BP 157/59; PULSE 76
== END 2024-10-30 23:59 | disposition home or self-care (01) ==
LOC: MEDOUTP 11:01
PROVIDERS: PCP Internal Medicine; Referring Provider Student in an Organized Health Care Education/Training Program; Visit Provider Student in an Organized Health Care Education/Training Program
DX: E86.0 Dehydration (principal); R19.8 Other specified symptoms and signs involving the digestive system and abdomen
CPT/HCPCS: 96360; A4216

== ENCOUNTER 2024-11-01 11:02 | Outpatient (CLI) | payer MEDICARE, MEDICAID, SELFPAY ==
[2024-06-27 09:22] VITALS: BMI 30.9
[2024-11-01] MEDS: Lactated Ringers 1,000 ML 999 ML IV (11:10)
[2024-11-01 11:17] VITALS: BP 119/102; PULSE 69; RESP 16; TEMP 36.3; O2SAT 95; BMI 33.2
[2024-11-01] MEDS: 0.9% NaCl Peripheral Flush Adult IV (12:21)
[2024-11-01 12:24] VITALS: BP 137/54; PULSE 67
== END 2024-11-01 23:59 | disposition home or self-care (01) ==
LOC: MEDOUTP 11:02
PROVIDERS: PCP Internal Medicine; Referring Provider Student in an Organized Health Care Education/Training Program; Visit Provider Student in an Organized Health Care Education/Training Program
DX: E86.0 Dehydration (principal); R19.8 Other specified symptoms and signs involving the digestive system and abdomen
CPT/HCPCS: 96360; A4216

== ENCOUNTER 2024-11-08 11:10 | Outpatient (CLI) | payer MEDICARE, MEDICAID, SELFPAY ==
[2024-06-27 09:22] VITALS: BMI 30.9
[2024-11-08] MEDS: Lactated Ringers 1,000 ML 999 ML IV (11:31)
[2024-11-08 11:33] VITALS: BP 134/52; PULSE 70; RESP 16; TEMP 35.8; O2SAT 96
[2024-11-08] MEDS: 0.9% NaCl Peripheral Flush Adult IV (12:40)
[2024-11-08 12:41] VITALS: BP 148/54; PULSE 76; RESP 16; TEMP 35.9; O2SAT 97
== END 2024-11-08 23:59 | disposition home or self-care (01) ==
PROVIDERS: PCP Internal Medicine; Referring Provider Student in an Organized Health Care Education/Training Program; Visit Provider Student in an Organized Health Care Education/Training Program
DX: E86.0 Dehydration (principal); R19.8 Other specified symptoms and signs involving the digestive system and abdomen
CPT/HCPCS: 96360; A4216

== ENCOUNTER 2024-11-13 11:05 | Outpatient (CLI) | payer MEDICARE, MEDICAID, SELFPAY ==
[2024-06-27 09:22] VITALS: BMI 30.9
[2024-11-13 11:11] VITALS: BP 142/52; PULSE 81; RESP 16; TEMP 36.1; O2SAT 95
[2024-11-13] MEDS: Lactated Ringers 1,000 ML 999 ML IV (11:21)
[2024-11-13] MEDS: 0.9% NaCl Peripheral Flush Adult IV (12:29)
[2024-11-13 12:30] VITALS: BP 134/64; PULSE 73; RESP 16; TEMP 36.4; O2SAT 99
== END 2024-11-13 23:59 | disposition home or self-care (01) ==
PROVIDERS: PCP Internal Medicine; Referring Provider Student in an Organized Health Care Education/Training Program; Visit Provider Student in an Organized Health Care Education/Training Program
DX: E86.0 Dehydration (principal); R19.8 Other specified symptoms and signs involving the digestive system and abdomen
CPT/HCPCS: 96360; A4216

== ENCOUNTER 2024-11-15 10:56 | Outpatient (CLI) | payer MEDICARE, MEDICAID, SELFPAY ==
[2024-06-27 09:22] VITALS: BMI 30.9
[2024-11-15 11:07] VITALS: BP 122/57; PULSE 63; RESP 16; TEMP 36; O2SAT 94
[2024-11-15] MEDS: Lactated Ringers 1,000 ML 999 ML IV (11:09)
[2024-11-15] MEDS: 0.9% NaCl Peripheral Flush Adult IV (12:17)
[2024-11-15 12:20] VITALS: BP 138/65; PULSE 67; RESP 16; TEMP 35.8
== END 2024-11-15 23:59 | disposition home or self-care (01) ==
PROVIDERS: PCP Internal Medicine; Referring Provider Student in an Organized Health Care Education/Training Program; Visit Provider Student in an Organized Health Care Education/Training Program
DX: E86.0 Dehydration (principal); R19.8 Other specified symptoms and signs involving the digestive system and abdomen
CPT/HCPCS: 96360; A4216

== ENCOUNTER 2024-11-22 11:54 | Outpatient (CLI) | payer MEDICARE, MEDICAID, SELFPAY ==
[2024-06-27 09:22] VITALS: BMI 30.9
[2024-11-22 12:22] VITALS: BP 128/62; PULSE 65; RESP 16; TEMP 36.1; O2SAT 98; BMI 33.6
[2024-11-22] MEDS: Lactated Ringers 1,000 ML 999 ML IV (12:23)
[2024-11-22] MEDS: 0.9% NaCl Peripheral Flush Adult IV (13:27)
[2024-11-22 13:28] VITALS: BP 122/57; PULSE 69
== END 2024-11-22 23:59 | disposition home or self-care (01) ==
LOC: MEDOUTP 11:54
PROVIDERS: PCP Internal Medicine; Referring Provider Student in an Organized Health Care Education/Training Program; Visit Provider Student in an Organized Health Care Education/Training Program
DX: E86.0 Dehydration (principal); R19.8 Other specified symptoms and signs involving the digestive system and abdomen
CPT/HCPCS: 96360; A4216

== ENCOUNTER → 2024-11-23 | Outpatient (CLI) | payer MEDICARE, MEDICAID, SELFPAY ==
[2024-06-27 09:22] VITALS: BMI 30.9
--- NOTE | 2024-11-23 08:15 | CT_ITS ---
PROCEDURE: ABDOMEN W/WO IV CONTRAST 11/23/2024 REASON FOR EXAM: TRIPLE PHASE LIVER TECHNIQUE: Procedure Code: [id number] Modality: CT Procedure: ABDOMEN W/WO IV CONTRAST Multiplanar Sagittal and Coronal images were obtained. One or more dose reduction techniques were used (e.g., Automated exposure control, adjustment of the mA and/or kV according to patient size, use of iterative reconstruction technique. CONTRAST: Isovue 370 VOLUME: 100 mL RADIATION DOSE SUMMARY: CTDlvol: 25.18, 23.32, 13.30, 22.71, 22.66 mGy DLP: 2541.75 mGycm COMPARISON: CT abdomen/Pelvis W IV Cont ONLY 21-Sep-2024 3:24 PM FINDINGS: LUNG BASES: No basilar airspace consolidation or pleural effusion. Coronary artery calcification. Median sternotomy wires present. LIVER: Diffuse decrease in parenchymal density. No focal lesion. GALLBLADDER: Prior cholecystectomy. BILE DUCTS: No ductal dilation. PANCREAS: Unremarkable. SPLEEN: Unremarkable. ADRENAL GLANDS: Unremarkable. KIDNEYS: The kidneys enhance symmetrically. No hydronephrosis or hydroureter. Stable hypodense renal lesions bilaterally, the largest is 2.1 cm, likely cysts. STOMACH AND BOWEL: Prior colectomy with anterior left lower abdominal ostomy. No obstruction or perforation. No wall thickening. APPENDIX: The appendix is not seen. RETRO/PERITONEUM: No free fluid. No free air. LYMPH NODES: No lymphadenopathy. PELVIC ORGANS: Unremarkable urinary bladder. Prior hysterectomy. VASCULATURE: No aortic aneurysm. Extensive calcified atherosclerosis. ABDOMINAL WALL AND SOFT TISSUES: Anterior left lower abdominal ostomy with unchanged moderate-size fat containing parastomal hernia. BONES: No fracture or suspicious osseous abnormality. Left hip prosthesis. Moderate L5-S1 degenerative disc disease. CT/Abdomen W/WO IV Contrast IMPRESSION: Diffuse hepatic steatosis. Reading Location: [id number]
[2024-11-23] MEDS: 0.9% Saline Lock 10 ML Syringe IV (08:40)
== END | disposition home or self-care (01) ==
LOC: CT 08:16
PROVIDERS: PCP Internal Medicine; Referring Provider Internal Medicine Gastroenterology; Visit Provider Internal Medicine Gastroenterology
DX: K76.0 Fatty (change of) liver, not elsewhere classified (principal)
CPT/HCPCS: 74170; Q9967; A4216

== ENCOUNTER 2024-11-27 11:01 | Outpatient (CLI) | payer MEDICARE, MEDICAID, SELFPAY ==
[2024-06-27 09:22] VITALS: BMI 30.9
[2024-11-27] MEDS: Lactated Ringers 1,000 ML 1000 ML IV (11:12)
[2024-11-27 11:14] VITALS: BP 119/57; PULSE 75; RESP 16; TEMP 36.1; O2SAT 95
[2024-11-27] MEDS: 0.9% NaCl Peripheral Flush Adult IV (12:21)
[2024-11-27 12:22] VITALS: BP 141/58; PULSE 70
== END 2024-11-27 23:59 | disposition home or self-care (01) ==
LOC: MEDOUTP 11:01
PROVIDERS: PCP Internal Medicine; Referring Provider Student in an Organized Health Care Education/Training Program; Visit Provider Student in an Organized Health Care Education/Training Program
DX: E86.0 Dehydration (principal); R19.8 Other specified symptoms and signs involving the digestive system and abdomen
CPT/HCPCS: 96360; A4216

== ENCOUNTER 2024-11-29 11:05 | Outpatient (CLI) | payer MEDICARE, MEDICAID, SELFPAY ==
[2024-06-27 09:22] VITALS: BMI 30.9
[2024-11-29] MEDS: Lactated Ringers 1,000 ML 1000 ML IV (11:20)
[2024-11-29 11:25] VITALS: BP 130/57; PULSE 93; RESP 16; TEMP 36.8; O2SAT 96
[2024-11-29] MEDS: 0.9% NaCl Peripheral Flush Adult IV (12:35)
[2024-11-29 12:36] VITALS: BP 133/48; PULSE 95; RESP 16; TEMP 36.9; O2SAT 96
== END 2024-11-29 23:59 | disposition home or self-care (01) ==
LOC: MEDOUTP 11:06
PROVIDERS: PCP Internal Medicine; Referring Provider Student in an Organized Health Care Education/Training Program; Visit Provider Student in an Organized Health Care Education/Training Program
DX: E86.0 Dehydration (principal); R19.8 Other specified symptoms and signs involving the digestive system and abdomen
CPT/HCPCS: 96360; A4216

== ENCOUNTER 2024-12-04 11:07 | Outpatient (CLI) | payer MEDICARE, MEDICAID, SELFPAY ==
[2024-06-27 09:22] VITALS: BMI 30.9
--- OUTSIDE RECORDS SUMMARY | 2024-10-06 14:30 | XMS RPT_ITS ---
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 MEDICAL HISTORY Diagnosis Date Acute pancreatitis Arteriosclerotic heart disease Back pain CAD (coronary artery disease) 08/18/2013 Dr. Cresencio Menon, [facility] Chest pain at rest 08/21/2013 Dr. Wright, Pain Management CHF (congestive heart failure) ([facility]) 08/21/2013 Chronic abdominal wound infection CKD (chronic kidney disease) stage 3, GFR 30-59 ml/min ([facility]) 08/21/2013 CKD (chronic kidney disease), stage II 08/21/2013 COPD (chronic obstructive pulmonary disease) ([facility]) 08/18/2013 Dr. Cherelle Lazo, pulmonary Depression with anxiety 08/21/2013 Fistula Gastroparesis History of Meniere's disease 1993 surgical treatment HTN (hypertension) 08/18/2013 Hyperlipidemia 08/18/2013 Hypoxemia 12/18/2013 Dr. Cherelle Lazo, pulmonary Migraine 08/21/2013 Neck pain ANKITA on CPAP 08/21/2013 Pulmonary hypertension, moderate to severe (HCC) 08/21/2013 S/P total colectomy 08/18/2013 Ulcerative colitis, ileostomy. Type II or unspecified type diabetes mellitus without mention of complication, uncontrolled 08/18/2013 Ulcerative colitis (HCC) PAST SURGICAL HISTORY Procedure Laterality Date DELIVERY ONLY 1988 , low transverse CHOLECYSTECTOMY CORONARY ARTERY BYP W/VEIN AND ARTERY GRAFT 4 VEIN 2012 CABG, quadruple grafts DEBRIDEMENT:CURRETATE, SKIN SUBCUTANEOUS 08/14/2014 chronic abdominal wound ILEOSTOMY 1983 LEFT HEART CATH,PERCUTANEOUS 07/10/2013 Cardiac cath, L heart LEFT HEART CATH,PERCUTANEOUS 09/04/2015 Cardiac cath, L heart RADIOLOGICAL GUIDANCE PRQ DRG W/PLMT CATH RSANDI 09/2017 abdominal abscess, was hospitalized following with sepsis REVJ ILEOSTOMY SIMPLE RLS SUPERFICIAL SCAR SPX 2008 STENT PLACEMENT,PERCUTAN,EACH 08/2012;09/2012; multiple TOTAL ABDOMINAL HYSTERECT W/WO RMVL TUBE OVARY 1990 Hysterectomy, CIRO, bilateral SO TOTAL FACIAL NERVE DECOMPRESSION AND/REPAIR 1993 Facial nerve decomp, 1993, Right side FAMILY HISTORY Problem Relation Age of Onset Cancer Father Diabetes Mother Stroke Mother None Sister Heart Failure Brother other (pancreatitis) Brother REVIEW OF SYSTEMS I have seen and agree with the ROS as obtained above. Sherine Wheat MD I have reviewed and agree with the history and physical obtained above. Sherine Wheat MD Physical examination The examination was done in there presence of a female surgical scrub tech. General: no acute distress Wheel chair bound HEENT: Normocephalic. Lungs: clear Heart: RRR Abdomen: soft, not tender Midline incisiton: intact RLQ ostomy scar: healed Left sided ileostomy Type : loop-end The: The active end is inferior and projects above the skin. The ostomy is pink. The inactive opening is superior. There is mild increased vacularity around the ostomy in the peristomal skin There are healed scars of what appear to be sites of previoius ulceration. Left radial pulse: +2 Neuro: Speech, clear, moves all extremities Anus: The anus is surgicaly absent. The anal wound is healed . Impression Two ostomy openings: as expected for loop-end ileostomy Peristomas bleeding: Differential: -Local trauma -Peristoma bleeding associated to increased portal pressure. Plan: I shall confer with my partners at [facility] main -Colon and rectal surgery -Enterostomal therapy -GI/hepatology Images of the stoma, the perineum, and the abdominal wall pannus will be uploaded. Obesity: The ostomy travels through a thick pannus. This might explain why the ooriginal stoma was flush. Sherine Wheat MD DATE: 09/30/24 TIME: 2:12 AM Allergies As of Date: 10/06/2024 Noted Allergy Reaction CINNAMON 06/06/2008 10 - Anaphylaxis Comments: Airborne and ingested reactions: throat AND lips swell, SOB DICYCLOMINE 08/18/2013 11 - Vomiting ARIPIPRAZOLE 01/28/2022 11 - Vomiting AZULFIDINE (SULFASALAZINE) 10/12/2008 4 - Hives CIPROFLOXACIN 01/28/2022 2 - Rash CODEINE 06/06/2008 5 - Intolerance Comments: Stops ileostomy functioning-severe constipation FLAGYL (METRONIDAZOLE HCL) 08/18/2013 4 - Hives FLUZONE HIGH-DOSE (PF) (F*01/08/2016 12 - Shortness of Breath Comments: Difficulty breathing, chest pain GLUCOPHAGE (METFORMIN HCL) 09/11/2013 8 - GI Upset INFLUENZA VIRUS VACCINES 12/17/2015 12 - Shortness of Breath 14 - Other: See Comments Comments: Chest pain METFORMIN 05/28/2023 2 - Rash PENICILLINS 02/12/1999 4 - Hives RANEXA (RANOLAZINE) 07/19/2018 16 - Unknown SULFA (SULFONAMIDE ANTIBIOTICS) 10/12/2008 4 - Hives VICTOZA (LIRAGLUTIDE) 07/22/2016 14 - Other: See Comments Comments: Acute pancreatitis [id number] REDUCTASE INHIBIT*08/16/2013 8 - GI Upset Date Reviewed: 10/06/2024 Reviewed by: Luma Galan, RT(R) - Fully Assessed Visit Diagnoses:Ileostomy in place (HCC) [Z93.2] Crohn's colitis, with fistula (HCC) [K50.113] Morbid (severe) obesity due to excess calories (HCC) [E66.01] Prescriptions as of 10/12/2024 - buprenorphine HCl (BELBUCA BUCCAL) Place between cheek and gum. - albuterol HFA 90 mcg/actuation HFA Inhale 2 Puffs as instructed as needed. - Benzonatate 200 mg capsule Take 200 mg by mouth three times a day as needed for cough. - buprenorphine (BUTRANS) 15 mcg/hour patch Apply 1 Patch as directed one time a week. - cholestyramine (QUESTRAN) 4 gram packet Take 1 Packet by mouth two times a day with meals. - cyclobenzaprine (FLEXERIL) 10 mg tablet Take 10 mg by mouth three times a day as needed for muscle spasm. - dicyclomine (BENTYL) 10 mg capsule Take 10 mg by mouth before meals and at bedtime. - duloxetine HCl (DULOXETINE ORAL) Take 90 mg by mouth once daily. - DEXCOM G6 SENSOR windy - DEXCOM G6 TRANSMITTER windy - OMNIPOD 5 G6 PODS, GEN 5, crtg - triamcinolone acetonide (KENALOG) 0.1 % cream triamcinolone TRIAMCINOLONE ACETONIDE 0.1 % CREA apply to affected area twice daily for 5-7 days for psoriasis flares TRIAMCINOLONE - insulin lispro (HUMALOG) 100 unit/mL injection Inject subcutaneously three times a day before meals. Dexcom as directed - lamoTRIgine (LAMICTAL) 100 mg tablet Take 100 mg by mouth once daily. - diphenoxylate-atropine (LOMOTIL) 2.5-0.025 mg per tablet Take 1 tablet by mouth four times a day as needed for diarrhea (2-3 times a day as needed). - Melatonin 5 mg cap Take 1 capsule by mouth once daily. - pantoprazole DR (PROTONIX) 40 mg tablet Take 40 mg by mouth two times a day. - folic acid 1 mg tablet TAKE 1 TABLET BY MOUTH EVERY DAY - adalimumab (HUMIRA,CF,) 40 mg/0.4 mL syringe kit INJECT 1 SYRINGE SUBCUTANEOUSLY EVERY 14 DAYS. - metoclopramide HCl (REGLAN ORAL) Take by mouth. - methotrexate, PF, 25 mg/mL soln Inject 0.8 mL subcutaneously one time a week. 0.8cc SC once/week - baclofen (LIORESAL) 10 mg tablet TAKE 1 TABLET BY MOUTH TWICE A DAY FILL 4 13 20 - BREO ELLIPTA 100-25 mcg/dose inhaler INHALE 1 PUFF BY MOUTH EVERY 24 HOURS. AFTER USE RINSE MOUTH WITH WATER AND SPIT OUT. DO NOT SWALLOW. - HUMALOG KWIKPEN INSULIN 200 unit/mL (3 mL) injection INJECT 45 UNITS SUBCUTANEOUSLY 3 TIMES A DAY - ondansetron orally disintegrating (ZOFRAN ODT) 4 mg disintegrating tablet TAKE 1 TABLET BY MOUTH EVERY 8 HOURS NEEDED FOR NAUSEA AND VOMITING - traZODone (DESYREL) 50 mg tablet TAKE 1 TABLET BY MOUTH EVERY DAY AT BEDTIME FOR INSOMNIA - Insulin Syringe-Needle U-100 1 mL 29 gauge x 1/2" 1 Each one time a week. - Oral Medication Containers (SHARPS CONTAINER) misc Use for MTX syringes - loperamide (IMODIUM) 2 mg cap(s) Take 2 mg by mouth. - fluticasone (FLONASE) 50 mcg/actuation nasal spray 2 SPRAY INTRANASAL DAILY administer into each nostril - miconazole (LOTRIMIN AF, DESENEX) 2 % powder DAILY - promethazine (PHENERGAN) 12.5 mg tablet TAKE ONE TABLET BY MOUTH THREE TIMES DAILY NEEDED FOR NAUSEA AND FOR VOMITING - venlafaxine ER (EFFEXOR XR) 150 mg 24 hr capsule Take 150 mg by mouth once daily. - Cholecalciferol, Vitamin D3, (VITAMIN D-3) 2,000 unit cap Take by mouth once daily. - traMADol (ULTRAM) 50 mg tablet Take 50 mg by mouth every 6 hours as needed. - buprenorphine (BUTRANS) 5 mcg/hour Apply 1 Patch as directed once each week. - pregabalin (LYRICA) 50 mg capsule Take 75 mg by mouth two times a day. - atorvastatin (LIPITOR) 80 mg tablet Take 1 tablet by mouth daily at bedtime. For cholesterol. - insulin aspart (NOVOLOG) 100 unit/mL soln Inject 20-40 Units subcutaneously three times daily with meals. - ondansetron (ZOFRAN) 4 mg tablet Take 4 mg by mouth as needed. - COMPOUNDED PRESCRIPTION Convatec - Juanita Cohesive Ostomy Seals #[id number] Dx: V4; V44.2 - COMPOUNDED PRESCRIPTION Convatec - Esteem 10" drainable ostomy pouch #[id number] Dx: V4; V44.2 - COMPOUNDED PRESCRIPTION PEREZ [employer] NEPHEW Skin-Prep. V4, V44.2. Use as directed twice a week. - insulin needles, DISPOSABLE, (BD INSULIN PEN NEEDLE UF) 31 gauge x 5/16" ndle Inject 4-6 times daily - isosorbide dinitrate (ISORDIL, SORBITRATE) 30 mg tablet Take 30 mg by mouth two times a day. - blood sugar diagnostic (FREESTYLE LITE STRIPS) test strip TEST BLOOD SUGAR(S)5-6 DAILY. DX: DIABETES. INSULIN: YES - furosemide (LASIX) 20 mg tablet Take 1 tablet by mouth once daily. - COMPOUNDED PRESCRIPTION SHARPS SECOND SHIFT SUPERVISOR. Dx: E11.65. On insulin. - COMPOUNDED PRESCRIPTION CONVATEC Allkare Adhesive remover. V45.89, V44.2. Use twice a week as directed. - metoprolol tartrate, short acting, 50 mg tablet Take 75 mg by mouth two times a day. - aspirin (ASPIRIN CHILDRENS) 81 mg chewable tablet Take 81 mg by mouth once daily. - nitroglycerin sublingual (NITROSTAT) 0.4 mg SL tablet Dissolve 0.4 mg under the tongue every 5 minutes as needed. - clopidogrel (PLAVIX) 75 mg tablet Take 75 mg by mouth once daily. Problem List As Of Date 10/06/2024 Noted Resolved Gastroparesis due to secondary diabetes ([facility]) [*08/18/2013 CAD (coronary artery disease) [I25.10] 08/18/2013 S/P total colectomy [Z90.49] 08/18/2013 COPD (chronic obstructive pulmonary disease) (H*08/18/2013 Hyperlipidemia [E78.5] 08/18/2013 HTN (hypertension) [I10] 08/18/2013 CHF (congestive heart failure) ([facility]) [I50.9] 08/21/2013 Chest pain at rest [R07.9] 08/21/2013 ANKITA on CPAP [G47.33] 08/21/2013 Depression with anxiety [F41.8] 08/21/2013 CKD (chronic kidney disease) stage 3, GFR 30-59*08/21/2013 Pulmonary hypertension, moderate to severe (HCC*08/21/2013 Migraine [G43.909] 08/21/[address] ([facility]) [Z93.2] 09/11/2013 Hypoxemia [R09.02] 12/18/2013 Open wound of abdominal wall, anterior, complic*05/22/2014 07/05/2015 Pain in right elbow [M25.521] 01/15/2015 03/24/2016 Diabetes mellitus type 2, uncontrolled, without*03/12/2015 Low back pain without sciatica [M54.50] 07/04/2015 Neuropathic pain of chest [M79.2] 10/23/2015 Psoriasis [L40.9] 12/17/2015 Lower abdominal pain [R10.30] 12/27/2015 Lower back pain [M54.50] 12/27/2015 01/10/2016 Chronic bilateral low back pain with right-side*01/23/2016 Lumbar facet arthropathy (HCC) [M47.816] 03/25/2016 BMI 32.0-32.9,adult [Z68.32] 06/18/2016 Fistula of intestine [K63.2] 07/23/2017 Crohn's colitis, with fistula (HCC) [K50.113] 08/19/2017 Postoperative pain [G89.18] 08/21/2017 Intra-abdominal abscess (HCC) [K65.1] 08/21/2017 Requires oxygen therapy [Z99.81] 08/22/2017 Hypophosphatemia [E83.39] 08/23/2017 Gastroesophageal reflux disease without esophag*07/19/2018 Inflammatory arthritis [M19.90] 07/14/2019 High risk medication use [Z79.899] 08/08/2019 Morbid (severe) obesity due to excess calories *05/28/2023 Encounter Status:Closed by SHERINE WHEAT on 10/07/24 HISTORY PHYSICAL Observed: 09/30/2024 2:12 AM Status: COMPLETED Source: [facility] ID: [id number] Author: SHERINE WHEAT MD Service: ? Author Type: Physician Type: H&P Filed: 10/12/2024 14:05 Note Text: GLORY Artis is a 64 year old female here today for followup of complications from ulcerative colitis. SP total proctocolectomy in [place]. Subsequent referral to [facility] 06/15/2008 Thai Huang MD Lapartomy for recurrent bowel obstructions at the level of the ileostomy 06/29/2008 Sherine Wheat MD Revision of end ileostomy for stoma relocation retraction right to left with loop end ileotomy 10/15/2008 Sherine Wheat MD Removal of retained drain 08/19/2017 Jordan Rose Laparotomy and drainage of chronic abscess cavity. History of MCDONALD Recent problems: Two holes are observed at the level of the ostomy When the edge of the ostomy is traumatized even lightly, there is massive bright red bleeding. 3. She note bleeding form the site where the anus used to be Current Outpatient Medications Medication Sig buprenorphine HCl (BELBUCA BUCCAL) Place between cheek and gum. albuterol HFA 90 mcg/actuation HFA Inhale 2 Puffs as instructed as needed. Benzonatate 200 mg capsule Take 200 mg by mouth three times a day as needed for cough. buprenorphine (BUTRANS) 15 mcg/hour patch Apply 1 Patch as directed one time a week. (Patient not taking: Reported on 08/29/2023) cholestyramine (QUESTRAN) 4 gram packet Take 1 Packet by mouth two times a day with meals. cyclobenzaprine (FLEXERIL) 10 mg tablet Take 10 mg by mouth three times a day as needed for muscle spasm. dicyclomine (BENTYL) 10 mg capsule Take 10 mg by mouth before meals and at bedtime. duloxetine HCl (DULOXETINE ORAL) Take 90 mg by mouth once daily. DEXCOM G6 SENSOR windy DEXCOM G6 TRANSMITTER windy OMNIPOD 5 G6 PODS, GEN 5, crtg triamcinolone acetonide (KENALOG) 0.1 % cream triamcinolone TRIAMCINOLONE ACETONIDE 0.1 % CREA apply to affected area twice daily for 5-7 days for psoriasis flares TRIAMCINOLONE insulin lispro (HUMALOG) 100 unit/mL injection Inject subcutaneously three times a day before meals. Dexcom as directed lamoTRIgine (LAMICTAL) 100 mg tablet Take 100 mg by mouth once daily. diphenoxylate-atropine (LOMOTIL) 2.5-0.025 mg per tablet Take 1 tablet by mouth four times a day as needed for diarrhea (2-3 times a day as needed). Melatonin 5 mg cap Take 1 capsule by mouth once daily. pantoprazole DR (PROTONIX) 40 mg tablet Take 40 mg by mouth two times a day. folic acid 1 mg tablet TAKE 1 TABLET BY MOUTH EVERY DAY adalimumab (HUMIRA,CF,) 40 mg/0.4 mL syringe kit INJECT 1 SYRINGE SUBCUTANEOUSLY EVERY 14 DAYS. metoclopramide HCl (REGLAN ORAL) Take by mouth. (Patient not taking: Reported on 05/28/2023) methotrexate, PF, 25 mg/mL soln Inject 0.8 mL subcutaneously one time a week. 0.8cc SC once/week baclofen (LIORESAL) 10 mg tablet TAKE 1 TABLET BY MOUTH TWICE A DAY FILL 4 13 20 (Patient not taking: Reported on 05/28/2023) BREO ELLIPTA 100-25 mcg/dose inhaler INHALE 1 PUFF BY MOUTH EVERY 24 HOURS. AFTER USE RINSE MOUTH WITH WATER AND SPIT OUT. DO NOT SWALLOW. (Patient not taking: Reported on 05/28/2023) HUMALOG KWIKPEN INSULIN 200 unit/mL (3 mL) injection INJECT 45 UNITS SUBCUTANEOUSLY 3 TIMES A DAY (Patient not taking: Reported on 05/28/2023) ondansetron orally disintegrating (ZOFRAN ODT) 4 mg disintegrating tablet TAKE 1 TABLET BY MOUTH EVERY 8 HOURS NEEDED FOR NAUSEA AND VOMITING (Patient not taking: Reported on 05/28/2023) traZODone (DESYREL) 50 mg tablet TAKE 1 TABLET BY MOUTH EVERY DAY AT BEDTIME FOR INSOMNIA Insulin Syringe-Needle U-100 1 mL 29 gauge x 1/2" 1 Each one time a week. (Patient not taking: Reported on 05/28/2023) Oral Medication Containers (SHARPS CONTAINER) misc Use for MTX syringes (Patient not taking: Reported on 05/28/2023) loperamide (IMODIUM) 2 mg cap(s) Take 2 mg by mouth. fluticasone (FLONASE) 50 mcg/actuation nasal spray 2 SPRAY INTRANASAL DAILY administer into each nostril (Patient not taking: Reported on 05/28/2023) miconazole (LOTRIMIN AF, DESENEX) 2 % powder DAILY (Patient not taking: Reported on 05/28/2023) promethazine (PHENERGAN) 12.5 mg tablet TAKE ONE TABLET BY MOUTH THREE TIMES DAILY NEEDED FOR NAUSEA AND FOR VOMITING (Patient not taking: Reported on 05/28/2023) venlafaxine ER (EFFEXOR XR) 150 mg 24 hr capsule Take 150 mg by mouth once daily. (Patient not taking: Reported on 05/28/2023) Cholecalciferol, Vitamin D3, (VITAMIN D-3) 2,000 unit cap Take by mouth once daily. (Patient not taking: Reported on 05/28/2023) traMADol (ULTRAM) 50 mg tablet Take 50 mg by mouth every 6 hours as needed. (Patient not taking: Reported on 05/28/2023) buprenorphine (BUTRANS) 5 mcg/hour Apply 1 Patch as directed once each week. (Patient not taking: Reported on 05/28/2023) pregabalin (LYRICA) 50 mg capsule Take 75 mg by mouth two times a day. atorvastatin (LIPITOR) 80 mg tablet Take 1 tablet by mouth daily at bedtime. For cholesterol. insulin aspart (NOVOLOG) 100 unit/mL soln Inject 20-40 Units subcutaneously three times daily with meals. (Patient not taking: Reported on 05/28/2023) ondansetron (ZOFRAN) 4 mg tablet Take 4 mg by mouth as needed. (Patient not taking: Reported on 05/28/2023) COMPOUNDED PRESCRIPTION Convatec - Juanita Cohesive Ostomy Seals #[id number] Dx: V45.89; V44.2 COMPOUNDED PRESCRIPTION Convatec - Esteem 10" drainable ostomy pouch #[id number] Dx: V45.89; V44.2 COMPOUNDED PRESCRIPTION PEREZ [employer] NEPHEW Skin-Prep. V45.89, V44.2. Use as directed twice a week. insulin needles, DISPOSABLE, (BD INSULIN PEN NEEDLE UF) 31 gauge x 5/16" ndle Inject 4-6 times daily (Patient not taking: Reported on 05/28/2023) isosorbide dinitrate (ISORDIL, SORBITRATE) 30 mg tablet Take 30 mg by mouth two times a day. blood sugar diagnostic (FREESTYLE LITE STRIPS) test strip TEST BLOOD SUGAR(S)5-6 DAILY. DX: DIABETES. INSULIN: YES (Patient not taking: Reported on 05/28/2023) furosemide (LASIX) 20 mg tablet Take 1 tablet by mouth once daily. (Patient not taking: Reported on 05/28/2023) COMPOUNDED PRESCRIPTION SHARPS SECOND SHIFT SUPERVISOR. Dx: E11.65. On insulin. COMPOUNDED PRESCRIPTION CONVATEC Allkare Adhesive remover. V45.89, V44.2. Use twice a week as directed. metoprolol tartrate, short acting, 50 mg tablet Take 75 mg by mouth two times a day. aspirin (ASPIRIN CHILDRENS) 81 mg chewable tablet Take 81 mg by mouth once daily. nitroglycerin sublingual (NITROSTAT) 0.4 mg SL tablet Dissolve 0.4 mg under the tongue every 5 minutes as needed. clopidogrel (PLAVIX) 75 mg tablet Take 75 mg by mouth once daily. No current facility-administered medications for this visit. ALLERGIES Allergen Reactions Cinnamon Anaphylaxis Airborne and ingested reactions: throat AND lips swell, SOB Dicyclomine Vomiting Aripiprazole Vomiting Azulfidine [Sulfasa* Hives Ciprofloxacin Rash Codeine Intolerance Stops ileostomy functioning-severe constipation Flagyl [Metronidazo* Hives Fluzone High-Dose 2* Shortness of Breath Difficulty breathing, chest pain Glucophage [Metform* GI Upset Influenza Virus Vac* Shortness of Breath, Other: See Comments Chest pain Metformin Rash Penicillins Hives Ranexa [Ranolazine] Unknown Sulfa (Sulfonamide * Hives Victoza [Liraglutid* Other: See Comments Acute pancreatitis Bwrqrzr-Eos-Mtb Red* GI Upset Social History Tobacco Use Smoking status: Former Current packs/day: 0.00 Average packs/day: 0.5 packs/day for 20.0 years (10.0 ttl pk-yrs) Types: Cigarettes Start date: 05/06/1992 Quit date: 05/06/2012 Years since quittin.4 Smokeless tobacco: Never Vaping Use Vaping status: Never Used Substance Use Topics Alcohol use: No Drug use: No PAST MEDICAL HISTORY Diagnosis Date Acute pancreatitis Arteriosclerotic heart disease Back pain CAD (coronary artery disease) 08/18/2013 Dr. Cresencio Menon, [facility] Chest pain at rest 08/21/2013 Dr. Wright, Pain Management CHF (congestive heart failure) ([facility]) 08/21/2013 Chronic abdominal wound infection CKD (chronic kidney disease) stage 3, GFR 30-59 ml/min ([facility]) 08/21/2013 CKD (chronic kidney disease), stage II 08/21/2013 COPD (chronic obstructive pulmonary disease) ([facility]) 08/18/2013 Dr. Cherelle Lazo, pulmonary Depression with anxiety 08/21/2013 Fistula Gastroparesis History of Meniere's disease 1993 surgical treatment HTN (hypertension) 08/18/2013 Hyperlipidemia 08/18/2013 Hypoxemia 12/18/2013 Dr. Cherelle Lazo, pulmonary Migraine 08/21/2013 Neck pain ANKITA on CPAP 08/21/2013 Pulmonary hypertension, moderate to severe (HCC) 08/21/2013 S/P total colectomy 08/18/2013 Ulcerative colitis, ileostomy. Type II or unspecified type diabetes mellitus without mention of complication, uncontrolled 08/18/2013 Ulcerative colitis (HCC) PAST SURGICAL HISTORY Procedure Laterality Date DELIVERY ONLY 1988 , low transverse CHOLECYSTECTOMY CORONARY ARTERY BYP W/VEIN AND ARTERY GRAFT 4 VEIN 2012 CABG, quadruple grafts DEBRIDEMENT:CURRETATE, SKIN SUBCUTANEOUS 08/14/2014 chronic abdominal wound ILEOSTOMY 1983 LEFT HEART CATH,PERCUTANEOUS 07/10/2013 Cardiac cath, L heart LEFT HEART CATH,PERCUTANEOUS 09/04/2015 Cardiac cath, L heart RADIOLOGICAL GUIDANCE PRQ DRG W/PLMT CATH RSANDI 09/2017 abdominal abscess, was hospitalized following with sepsis REVJ ILEOSTOMY SIMPLE RLS SUPERFICIAL SCAR SPX 2008 STENT PLACEMENT,PERCUTAN,EACH 08/2012;09/2012; multiple TOTAL ABDOMINAL HYSTERECT W/WO RMVL TUBE OVARY 1990 Hysterectomy, CIRO, bilateral SO TOTAL FACIAL NERVE DECOMPRESSION AND/REPAIR 1993 Facial nerve decomp, 1993, Right side FAMILY HISTORY Problem Relation Age of Onset Cancer Father Diabetes Mother Stroke Mother None Sister Heart Failure Brother other (pancreatitis) Brother REVIEW OF SYSTEMS I have seen and agree with the ROS as obtained above. Sherine Wheat MD I have reviewed and agree with the history and physical obtained above. Sherine Wheat MD Physical examination The examination was done in there presence of a female surgical scrub tech. General: no acute distress Wheel chair bound HEENT: Normocephalic. Lungs: clear Heart: RRR Abdomen: soft, not tender Midline incisiton: intact RLQ ostomy scar: healed Left sided ileostomy Type : loop-end The: The active end is inferior and projects above the skin. The ostomy is pink. The inactive opening is superior. There is mild increased vacularity around the ostomy in the peristomal skin There are healed scars of what appear to be sites of previoius ulceration. Left radial pulse: +2 Neuro: Speech, clear, moves all extremities Anus: The anus is surgicaly absent. The anal wound is healed . Impression Two ostomy openings: as expected for loop-end ileostomy Peristomas bleeding: Differential: -Local trauma -Peristoma bleeding associated to increased portal pressure. Plan: I shall confer with my partners at [facility] main -Colon and rectal surgery -Enterostomal therapy -GI/hepatology Images of the stoma, the perineum, and the abdominal wall pannus will be uploaded. Obesity: The ostomy travels through a thick pannus. This might explain why the ooriginal stoma was flush. Sherine Wheat MD DATE: 09/30/24 TIME: 2:12 AM ALLERGIES DATE TYPE / CODE NAME / CODE REACTION SEVERITY SOURCE 05/28/2023 DRUG INGREDI/37218 1003(SNOMED CT) METFORMIN RASH [facility] 01/28/2022 DRUG INGREDI/29259 1003(SNOMED CT) ARIPIPRAZOLE Vomiting [facility] 01/28/2022 DRUG INGREDI/11549 1003(SNOMED CT) CIPROFLOXACIN RASH [facility] 07/19/2018 DRUG INGREDI/72053 1003(SNOMED CT) RANOLAZINE UNKNOWN [facility] 07/22/2016 DRUG INGREDI/78312 1003(SNOMED CT) LIRAGLUTIDE OTHER: SEE C [facility] 01/08/2016 DRUG/03672223 3(SNOMED CT) FLU VACC [id number] 63YR UP(PF) SHORTNESS OF [facility] 12/17/2015 Drug Class/9568208 03(SNOMED CT) INFLUENZA VIRUS VACCINES SHORTNESS OF [facility] 09/11/2013 DRUG INGREDI/34801 1003(SNOMED CT) METFORMIN HCL GI UPSET [facility] 08/18/2013 DRUG INGREDI/13695 1003(SNOMED CT) DICYCLOMINE Vomiting High [facility] 08/18/2013 DRUG INGREDI/50519 1003(SNOMED CT) METRONIDAZOLE HCL [facility] 08/16/2013 Drug Class/8039132 03(SNOMED CT) [id number] REDUCTASE INHIBITORS GI UPSET Low [facility] 10/12/2008 DRUG INGREDI/94946 1003(SNOMED CT) SULFASALAZINE [facility] 10/12/2008 Drug Class/2720922 03(SNOMED CT) SULFA (SULFONAMIDE ANTIBIOTICS) [facility] 06/06/2008 DRUG INGREDI/96650 1003(SNOMED CT) CINNAMON ANAPHYLAXIS High [facility] 06/06/2008 DRUG INGREDI/93026 1003(SNOMED CT) CODEINE INTOLERANCE [facility] 02/12/1999 Drug Class/5257664 03(SNOMED CT) PENICILLINS HIVES [facility] ENCOUNTERS ADMIT/DISCHARGE ACCOUNT NUMBER ADMITTING ENCOUNTER CLASS LOC ATION SOURCE 10/06/2024/ [id number] [facility]: EMBed: [facility] 10/06/2024/ 5 [id number] [facility] PAYERS ENCOUNTER GUARANTOR PAYER SUBSCRIBER SOURCE 10/06/2024 Primary Insurance:MEDPAYPolicy Number: [id number] Date:[id number] Name:Lalo MOTLEY: [id number] [place] [address] 10/06/2024 Primary Insuranc e:[facility] MEDICAREPolicy Number: [id number] Date:9316-07-03Edoe Name:Cristin MOTLEY: [id number] [address] [facility] 10/06/2024 Secondary Insurance:[facility] MEDICAIDPolicy Number: [id number] Date:1345-17-16Qszs Name:Adelfo MOTLEY: [id number] [address] [facility]
[2024-12-04] MEDS: Lactated Ringers 1,000 ML 1000 ML IV (11:29)
[2024-12-04] MEDS: 0.9% NaCl Peripheral Flush Adult IV ×2 (11:30→12:33)
[2024-12-04 11:34] VITALS: BP 149/61; PULSE 74; RESP 16; TEMP 36.1; O2SAT 97
[2024-12-04 11:53] LABS: Hematocrit 36.2 % (37-47); Hemoglobin 11.0 g/dL (12.0-15.0); Mean Corp Hgb Conc 30.4 g/dL (32-36); Mean Corpuscular Volume 83.6 fL (81-99); Mean Platelet Vol. 12.1 fl (6.2-12.0); Platelet Count 267 K/mm3 (150-450); RBC Distribution Width CV 16.2 % (11.6-14.6); RBC Distribution Width SD 49.1 fl (35.1-43.9); Red Blood Count 4.33 M/mm3 (4.2-5.4); White Blood Count 11.6 K/mm3 (4.4-11.0)
[2024-12-04 12:16] LABS: Ammonia 36.3 umol/L (11-51)
[2024-12-04 12:32] LABS: AST(SGOT) 20 U/L (<=31); Alanine Aminotransfer ALT/SGPT 14 U/L (<=34); Albumin, Serum 3.8 g/dL (3.4-4.8); Alkaline Phosphatase 160 U/L (35-104); Anion Gap 13 (5-15); BUN 51 mg/dL (4-19); BUN/Creat Ratio 25.1 RATIO (10-20); Calcium,Total 9.2 mg/dL (7.6-11.0); Carbon Dioxide 18.8 mmol/L (21.0-32.0); Chloride 109 mmol/L (98-108); Globulin 3.2 g/dL (2.2-4.2); Glucose 97 mg/dL (70-99); Magnesium 1.6 mg/dL (1.5-2.2); Potassium 4.1 mmol/L (3.3-5.1); Vitamin B12 635 pg/mL (180-914)
[2024-12-04 12:35] VITALS: BP 139/55; PULSE 76; RESP 16
[2024-12-06 15:08] LABS: Vitamin D 1,25-Dihydroxy 36.2 pg/mL (24.8-81.5)
[2024-12-07 22:07] LABS: Folate, Hemolysate Test 438.0 ng/mL (Not Estab.); Folate, RBC (Hct) Test 35.9 % (34.0-46.6); Folates, RBC Test 1220 ng/mL (>498); VITAMIN B6 3.5 ug/L (3.4-65.2); Vitamin B1, Thiamine 135.1 nmol/L (66.5-200.0)
== END 2024-12-04 23:59 | disposition home or self-care (01) ==
LOC: MEDOUTP 11:07
PROVIDERS: Psychiatry & Neurology Neurology; PCP Internal Medicine; Referring Provider Student in an Organized Health Care Education/Training Program; Visit Provider Student in an Organized Health Care Education/Training Program
DX: E86.0 Dehydration (principal); F03.90 Unspecified dementia, unspecified severity, without behavioral disturbance, psychotic disturbance, mood disturbance, and anxiety; R19.8 Other specified symptoms and signs involving the digestive system and abdomen; R26.9 Unspecified abnormalities of gait and mobility; G62.9 Polyneuropathy, unspecified; I10 Essential (primary) hypertension
CPT/HCPCS: 96360; 36591; 80053; 80184; 80188; 82140; 82542; 82607; 82652; 82747; 83735; 84207; 84425; 84443; 85014; 85027; A4216

== ENCOUNTER → 2024-12-05 | Outpatient (CLI) | payer MEDICARE, MEDICAID, SELFPAY ==
[2024-06-27 09:22] VITALS: BMI 30.9
--- NOTE | 2024-12-05 09:44 | MRI_ITS ---
PROCEDURE: MRI BRAIN WITHOUT CONTRAST 12/05/2024 REASON FOR EXAM: HEADACHE; DEMENTIA TECHNIQUE: Procedure Code: MRIBR Modality: MR Procedure: BRAIN WITHOUT CONTRAST Multiplanar and multisequential MRI of the brain was performed without contrast. COMPARISON: CT head 07/26/2024 FINDINGS: The ventricular and sulcal size and configuration appear within normal limits. No regions of abnormal restricted diffusion to indicate recent infarct. No evidence of intracranial hemorrhage, extra-axial collection, mass-effect, or other acute abnormality. Preserved major vascular flow voids. Few scattered small foci of T2 FLAIR hyperintensity in the supratentorial white matter, nonspecific but commonly seen with migraine headaches, or related to mild leukoaraiosis. Grossly unremarkable orbits. Well-aerated paranasal sinuses. Postoperative changes of right canal wall up mastoidectomy, with partial fluid opacification and/or fat packing in the mastoid bowl. MRI/Brain without Contrast IMPRESSION: No acute intracranial abnormality or specific cause for headaches. Few scattered small foci of T2 FLAIR hyperintensity in the cerebral white matte r, nonspecific but commonly seen with migraine headaches and/or related to mild leukoaraiosis. Reading Location: [id number]
--- NOTE | 2024-12-05 09:44 | MRI_ITS ---
PROCEDURE: MRI BRAIN WITHOUT CONTRAST 12/05/2024 REASON FOR EXAM: HEADACHE; DEMENTIA TECHNIQUE: Procedure Code: MRIBR Modality: MR Procedure: BRAIN WITHOUT CONTRAST Multiplanar and multisequential MRI of the brain was performed without contrast. COMPARISON: CT head 07/26/2024 FINDINGS: The ventricular and sulcal size and configuration appear within normal limits. No regions of abnormal restricted diffusion to indicate recent infarct. No evidence of intracranial hemorrhage, extra-axial collection, mass-effect, or other acute abnormality. Preserved major vascular flow voids. Few scattered small foci of T2 FLAIR hyperintensity in the supratentorial white matter, nonspecific but commonly seen with migraine headaches, or related to mild leukoaraiosis. Grossly unremarkable orbits. Well-aerated paranasal sinuses. Postoperative changes of right canal wall up mastoidectomy, with partial fluid opacification and/or fat packing in the mastoid bowl. MRI/Brain without Contrast IMPRESSION: No acute intracranial abnormality or specific cause for headaches. Few scattered small foci of T2 FLAIR hyperintensity in the cerebral white matte r, nonspecific but commonly seen with migraine headaches and/or related to mild leukoaraiosis. Reading Location: [id number]
== END | disposition home or self-care (01) ==
LOC: MRI 09:37
PROVIDERS: PCP Internal Medicine; Referring Provider Psychiatry & Neurology Neurology; Visit Provider Psychiatry & Neurology Neurology
DX: G43.009 Migraine without aura, not intractable, without status migrainosus (principal); F03.90 Unspecified dementia, unspecified severity, without behavioral disturbance, psychotic disturbance, mood disturbance, and anxiety; R26.9 Unspecified abnormalities of gait and mobility
CPT/HCPCS: 70551

== ENCOUNTER 2024-12-06 11:01 | Outpatient (CLI) | payer MEDICARE, MEDICAID, SELFPAY ==
[2024-06-27 09:22] VITALS: BMI 30.9
[2024-12-06 11:29] VITALS: BP 132/55; PULSE 73; RESP 16; TEMP 36.2; O2SAT 96; BMI 33.0
[2024-12-06] MEDS: Lactated Ringers 1,000 ML 999 ML IV (11:35)
[2024-12-06] MEDS: 0.9% NaCl Peripheral Flush Adult IV (12:39)
[2024-12-06 12:40] VITALS: BP 131/58; PULSE 61
== END 2024-12-06 23:59 | disposition home or self-care (01) ==
LOC: MEDOUTP 11:01
PROVIDERS: PCP Internal Medicine; Referring Provider Student in an Organized Health Care Education/Training Program; Visit Provider Student in an Organized Health Care Education/Training Program
DX: E86.0 Dehydration (principal); R19.8 Other specified symptoms and signs involving the digestive system and abdomen
CPT/HCPCS: 96360; A4216

== ENCOUNTER 2024-12-18 11:36 | Outpatient (CLI) | payer MEDICARE, MEDICAID, SELFPAY ==
[2024-06-27 09:22] VITALS: BMI 30.9
[2024-12-18] MEDS: Lactated Ringers 1,000 ML 999 ML IV (12:03)
[2024-12-18 12:04] VITALS: BP 128/50; PULSE 74; RESP 16; TEMP 36.6; O2SAT 95
[2024-12-18 13:10] VITALS: BP 127/52; PULSE 65; RESP 18
[2024-12-18] MEDS: 0.9% NaCl Peripheral Flush Adult IV (13:10)
== END 2024-12-18 23:59 | disposition home or self-care (01) ==
LOC: MEDOUTP 11:37
PROVIDERS: PCP Internal Medicine; Referring Provider Student in an Organized Health Care Education/Training Program; Visit Provider Student in an Organized Health Care Education/Training Program
DX: E86.0 Dehydration (principal); R19.8 Other specified symptoms and signs involving the digestive system and abdomen
CPT/HCPCS: 96360; A4216

== ENCOUNTER → 2024-12-18 | Outpatient (CLI) | payer MEDICARE, MEDICAID, SELFPAY ==
[2024-06-27 09:22] VITALS: BMI 30.9
== END | disposition home or self-care (01) ==
LOC: MRI 13:42
PROVIDERS: PCP Internal Medicine; Referring Provider Psychiatry & Neurology Neurology; Visit Provider Psychiatry & Neurology Neurology
DX: M54.2 Cervicalgia (principal); R26.9 Unspecified abnormalities of gait and mobility; M54.50 Low back pain, unspecified; M54.16 Radiculopathy, lumbar region
CPT/HCPCS: 72141; 72148

== ENCOUNTER 2024-12-25 11:05 | Outpatient (CLI) | payer MEDICARE, MEDICAID, SELFPAY ==
[2024-06-27 09:22] VITALS: BMI 30.9
[2024-12-25 11:15] VITALS: BP 133/55; PULSE 70; RESP 18; TEMP 35.6; O2SAT 96
[2024-12-25] MEDS: Lactated Ringers 1,000 ML 999 ML IV (11:18)
[2024-12-25] MEDS: 0.9% NaCl Peripheral Flush Adult IV (12:26)
[2024-12-25 12:28] VITALS: BP 125/52; PULSE 65
== END 2024-12-25 23:59 | disposition home or self-care (01) ==
LOC: MEDOUTP 11:06
PROVIDERS: PCP Internal Medicine; Referring Provider Student in an Organized Health Care Education/Training Program; Visit Provider Student in an Organized Health Care Education/Training Program
DX: E86.0 Dehydration (principal); R19.8 Other specified symptoms and signs involving the digestive system and abdomen
CPT/HCPCS: 96360; A4216

== ENCOUNTER 2025-01-01 11:23 | Outpatient (CLI) | payer MEDICARE, MEDICAID, SELFPAY ==
[2024-06-27 09:22] VITALS: BMI 30.9
[2025-01-01] MEDS: Lactated Ringers 1,000 ML 999 ML IV (11:35)
[2025-01-01 11:37] VITALS: BP 144/73; PULSE 78; RESP 16; TEMP 35.8; O2SAT 94
[2025-01-01] MEDS: 0.9% NaCl Peripheral Flush Adult IV (12:48)
[2025-01-01 13:01] VITALS: BP 142/58; PULSE 72; RESP 16; TEMP 35.8; O2SAT 95
== END 2025-01-01 23:59 | disposition home or self-care (01) ==
LOC: MEDOUTP 11:23
PROVIDERS: PCP Internal Medicine; Referring Provider Student in an Organized Health Care Education/Training Program; Visit Provider Student in an Organized Health Care Education/Training Program
DX: E86.0 Dehydration (principal); R19.8 Other specified symptoms and signs involving the digestive system and abdomen
CPT/HCPCS: 96360; A4216

== ENCOUNTER 2025-01-02 17:02 | Emergency (ER) | payer MEDICARE, MEDICAID, SELFPAY ==
[2024-06-27 09:22] VITALS: BMI 30.9
[2025-01-02 17:03] VITALS: BP 115/72; PULSE 95; RESP 16; TEMP 37; O2SAT 99; BMI 24.7
[2025-01-02] MEDS: 0.9% Normal Saline (1000mL) 1,000 ML 999 ML IV ×2 (17:53→19:41)
[2025-01-02 18:01] LABS: Hematocrit 40.8 % (37-47); Hemoglobin 12.4 g/dL (12.0-15.0); Immature Granulocytes Count 0.090 X10^3/uL (0.0-0.0); Mean Corp Hgb Conc 30.4 g/dL (32-36); Mean Corpuscular Volume 81.3 fL (81-99); Mean Platelet Vol. 11.0 fl (6.2-12.0); NRBC Flagged by Analyzer 0.2 % (0-5); Platelet Count 302 K/mm3 (150-450); RBC Distribution Width CV 17.0 % (11.6-14.6); RBC Distribution Width SD 49.5 fl (35.1-43.9); Red Blood Count 5.02 M/mm3 (4.2-5.4); White Blood Count 12.9 K/mm3 (4.4-11.0)
[2025-01-02 18:53] VITALS: BP 147/85; PULSE 86; O2SAT 96
[2025-01-02 19:08] LABS: AST(SGOT) 17 U/L (<=31); Alanine Aminotransfer ALT/SGPT 9 U/L (<=34); Albumin, Serum 3.7 g/dL (3.4-4.8); Alkaline Phosphatase 184 U/L (35-104); Anion Gap 12 (5-15); BUN 50 mg/dL (4-19); BUN/Creat Ratio 22.9 RATIO (10-20); Calcium,Total 10.0 mg/dL (7.6-11.0); Carbon Dioxide 19.8 mmol/L (21.0-32.0); Chloride 104 mmol/L (98-108); Estimated Creatinine Clearance 24.46 ml/min (50-250); Globulin 3.8 g/dL (2.2-4.2); Glucose 170 mg/dL (70-99); Lipase 36 U/L (13-75); Potassium 5.6 mmol/L (3.3-5.1)
--- NOTE | 2025-01-02 19:20 | EX.ED.DYSGE1 ---
HPI History of Present Illness Chief Complaint: General Illness Narrative Narrative: 64-year-old female past medical history of ulcerative colitis with placement of ileostomy remotely, presents with diarrhea and abdominal cramping that began today. She and her relate history that she has a high output ileostomy as well as gastroparesis. She is nauseated but not vomiting. She denies any fevers or chills but has had abdominal cramping and diarrhea in her ostomy bag. She also has stage IV kidney disease she states, and feels dehydrated. She usually gets normal saline infused in the infusion center every Wednesday and Wednesday. She had normal saline boluses yesterday, but today woke up with a lot of cramping and high output from her ileostomy. She feels generally weak as well. [facility] Medical History Bilateral lower extremity edema History of left common carotid artery stent placement History of stress test Immunity status testing Chronic kidney disease, stage 3b History of CAD (coronary artery disease) History of chronic kidney disease History of diabetes mellitus CAD (coronary artery disease) Dehydration Falls Hypoxic respiratory failure Hypercapnic respiratory failure Fatigue Low back pain Abnormality of gait and mobility Polyneuropathy Insulin pump titration Presence of insulin pump Health care maintenance Essential tremor Dementia History of stress test Fungal dermatitis Herpes genitalia Encounter for insertion of venous access port Post-menopausal Rash Back pain Arthritis Ambulates with cane History of renal disease High cholesterol Dietary restriction History of pain when walking History of echocardiogram Chronic kidney disease (CKD) stage G4/A2, severely decreased glomerular filtration rate (GFR) between 15-29 mL/min/1.73 square meter and albuminuria creatinine ratio between 30-299 mg/g Chronic kidney disease (CKD) stage G4/A1, severely decreased glomerular filtration rate (GFR) between 15-29 mL/min/1.73 square meter and albuminuria creatinine ratio less than 30 mg/g Ingrown toenail Neuropathy Hyperglycemia due to diabetes mellitus Frequent falls Tremor Depression Chronic pain Rheumatoid arthritis Congestive heart failure (CHF) Lumbar spondylosis Greater trochanteric bursitis CKD (chronic kidney disease) stage 3, GFR 30-59 ml/min Malaise and fatigue Vitamin B12 deficiency History of CAD (coronary artery disease) Memory loss Anxiety and depression Degenerative disc disease at L5-S1 level CAD (coronary artery disease) Cellulitis, abdominal wall Left shoulder pain Gastroparesis Vitamin D deficiency Acute kidney injury CKD (chronic kidney disease), stage IV High output ileostomy MGUS (monoclonal gammopathy of unknown significance) Elevated anti-tissue transglutaminase (tTG) IgA level Ileostomy present Short bowel syndrome Loss of hearing Wears glasses History of COVID-19 Anxiety Insulin dependent diabetes mellitus Walker as ambulation aid Fatty liver Migraine headache Hx of diabetic gastroparesis Gastric reflux Former smoker BiPAP (biphasic positive airway pressure) dependence Hypertension Cardiology follow-up encounter Myoclonic jerking Chronic narcotic use Avascular necrosis of bone of left hip Chronic back pain Non-alcoholic fatty liver disease Liver mass Ulcerative colitis Nonalcoholic steatohepatitis Chronic respiratory failure Smoking greater than 20 pack years Obesity Chronic respiratory failure with hypoxia, on home O2 therapy Diabetic gastroparesis Secondary pulmonary arterial hypertension Chronic diastolic (congestive) heart failure Type 2 diabetes mellitus with diabetic polyneuropathy BMI 31.0-31.9,adult Depression with anxiety Arthritis Menieres disease Hyperlipidemia Psoriasis Obstructive sleep apnea COPD (chronic obstructive pulmonary disease) FCHL (familial combined hyperlipidemia) DM2 (diabetes mellitus, type 2) Home Medications ?Medication ?Instructions ?Recorded ?Last Taken ?Type hyoscyamine sulfate 0.125 mg tablet 0.125 mg PO BID-QID PRN dyspepsia 12/23/23 07/18/24 History fluticasone propionate 50 2 spray intranasal DAILY allergies 01/04/24 07/24/24 Rx mcg/actuation nasal #16 grams spray,suspension (Flonase Allergy Relief) clopidogrel 75 mg tablet 75 mg PO DAILY anti platelet #28 02/02/24 07/24/24 Rx TABLETS triamcinolone acetonide 0.1 % 1 applic topical DAILY PRN 02/17/24 07/24/24 History topical ointment psoriasis aspirin 81 mg tablet,delayed 81 mg PO DAILY heart health #30 02/24/24 07/24/24 Rx release tabs nitroglycerin 0.4 mg sublingual 0.4 mg sublingual Q5-15M PRN chest 02/24/24 Unknown Rx tablet pain #25 tabs evolocumab 140 mg/mL subcutaneous 140 mg subcut Q2W #6 mL 02/29/24 07/22/24 Rx pen injector (Geraldine Collins) dicyclomine 10 mg capsule 10 mg PO BID PRN stomach 03/11/24 07/23/24 History pantoprazole 40 mg tablet,delayed 40 mg PO BID GERD #60 tabs 03/29/24 07/24/24 Rx release (Protonix) cholecalciferol (vitamin D3) 1,250 1,250 mcg PO .monthly vit #14 caps 04/05/24 Unknown Rx mcg (50,000 unit) capsule buprenorphine 10 mcg/hour weekly 1 patch transdermal Q7D 04/24/24 07/22/24 History transdermal patch (Butrans) albuterol sulfate 90 mcg/actuation 2 puff inhalation Q4-6H PRN SOB 04/26/24 Unknown Rx aerosol inhaler #8.5 grams amlodipine 5 mg tablet 5 mg PO QDAY #30 tabs 05/15/24 07/24/24 Rx metoprolol tartrate 25 mg tablet 25 mg PO BID #180 tabs 06/14/24 07/24/24 Rx metoprolol tartrate 50 mg tablet 50 mg PO BID #180 tabs 06/14/24 07/24/24 Rx fluticasone fur. 100 mcg-umeclid 1 inh inhalation QDAY #14 ea 08/09/24 Unknown Rx 62.5 mcg-vilant 25 mcg inhalat.powder (Trelegy Ellipta) insulin pump cart,auto,BT,G6/7 #45 ea 09/11/24 Unknown Rx (Omnipod 5 G6-G7 Pods (Gen 5) subcutaneous cartridge) tramadol 50 mg tablet 50 mg PO BID PRN pain 09/12/24 Unknown History insulin lispro 200 unit/mL (3 mL) 220 unit (1.1 mL) subcut QDAY 09/14/24 Unknown Rx subcutaneous pen (Humalog KwleoncioPen diabetes #99 mL U-200 Insulin) galantamine 16 mg 24 hr 16 mg PO QAM #30 caps 10/03/24 Unknown Rx capsule,extended release pregabalin 100 mg capsule 100 mg PO BID #60 caps 10/03/24 Unknown Rx primidone 50 mg tablet 50 mg PO BID #60 tabs 10/03/24 Unknown Rx rimegepant 75 mg disintegrating 75 mg PO DAILY PRN migraine 10/03/24 Unknown Rx tablet (Nurtec ODT) headache #16 tabs acetaminophen 500 mg tablet 1,000 mg PO Q8 PRN pain 10/12/24 Unknown History Dexcom G7 Sensor (blood-glucose #9 ea 10/17/24 Unknown Rx sensor) Handicap Placard #1 ea 10/17/24 Unknown Rx isosorbide dinitrate 30 mg tablet 30 mg PO BID heart #60 tabs 11/10/24 Unknown Rx duloxetine 60 mg capsule,delayed 60 mg PO BID mental health #60 caps 11/15/24 Unknown Rx release lamotrigine 200 mg tablet 200 mg PO DAILY mood #30 tabs 11/15/24 Unknown Rx mirtazapine 7.5 mg tablet 7.5 mg PO QHS mental health #30 11/15/24 Unknown Rx tabs atorvastatin 80 mg tablet 80 mg PO QHS CHOLESTEROL LOWERING 12/08/24 Unknown Rx #90 tabs valacyclovir 500 mg tablet 500 mg PO Q12H PRN HSV #7 tabs 12/18/24 Unknown Rx diphenoxylate-atropine 2.5 1 tab PO TID PRN diarrhea #90 tabs 01/01/25 Unknown Rx mg-0.025 mg tablet (Lomotil) Allergy/AdvReac Type Severity Reaction Status Date / Time cinnamon (Cinnamon) Allergy Severe Anaphylaxis Verified 01/02/25 17:04 Influenza Virus Vaccines Allergy Severe Shortness Verified 01/02/25 17:04 of breath liraglutide (From Victoza) Allergy Severe Anaphylaxis Verified 01/02/25 17:04 ciprofloxacin Allergy Intermediate Swelling Verified 01/02/25 17:04 metformin (From Glucophage) Allergy Mild Nausea Verified 01/02/25 17:04 metronidazole (From Flagyl) Allergy Hives Verified 01/02/25 17:04 Metronidazole HCl (From Allergy Hives Verified 01/02/25 17:04 Flagyl) Penicillins Allergy Hives Verified 01/02/25 17:04 Sulfa (Sulfonamide Allergy Hives Verified 01/02/25 17:04 Antibiotics) ranolazine AdvReac Nausea/Vom/ Verified 01/02/25 17:04 Diarrhea Lbfkxzs-[id number]-HqV Reductase AdvReac Nausea/joints Verified 01/02/25 17:04 Inhibitor (Hxxdkjz-Pwn-Pzz ache Reductase Inhibitor) Family History Mother CVA (cerebral vascular accident) Diabetes Brother Heart disease of CAD at 65 Myocardial infarction Pancreatitis Father Cancer lymphomia Lymphoma Grandmother Myocardial infarction of [place] in her 70s Sister COPD (chronic obstructive pulmonary disease) Surgical History Hx of CABG History of lateral meniscus repair of right knee History of vascular access device History of colonoscopy History of esophagogastroduodenoscopy (EGD) History of appendectomy History of coronary artery stent placement H/O total hip arthroplasty Status post total hip replacement, left History of cardiac catheterization History of History of cholecystectomy H/O coronary artery bypass surgery (05/18/12) History of coronary artery stent placement (01/12/18) H/O sinus surgery history closed fissure Ileostomy status H/O colectomy left thumb surgery H/O total hysterectomy ileostomy Social History household members: spouse and none Smoking Status: Former smoker quit date: 03/08/12 how long ago did patient quit smoking: quit in 2012; 0.5-1ppd x 30yrs alcohol intake: never substance use type: does not use diet: diabetic caffeine: No eating out: 1-3 times/week what type of physical activity do you participate in: none seatbelt use: always do you feel safe at home: Yes ROS ROS ED ROS Narrative Review of systems positive for multiple episodes of watery stool in ileostomy. Positive abdominal cramping. No fevers or chills. Positive nausea but no vomiting. No exacerbating or alleviating factors. Positive generalized weakness. Feels dehydrated. EXAM Physical Exam Narrative Exam Narrative: Afebrile. Vital signs noted. Nontoxic-appearing. Cardiovascular examination reveals regular rate and rhythm. Lungs are clear to auscultation bilaterally. Abdomen is soft without guarding or rebound. Positive bowel sounds. Neurological examination nonfocal, nonlateralizing. Positive Mediport. Const Vital Signs: 01/02/25 17:03 01/02/25 18:53 01/02/25 18:56 Temperature 98.6 F Temperature Source Oral Pulse Rate 95 86 Respiratory Rate 16 Respiratory Pattern Normal Blood Pressure 115/72 147/85 H Blood Pressure Mean 86 105 Pulse Ox 99 96 Oxygen Delivery Method Room Air Room Air 01/02/25 21:00 01/02/25 22:12 Temperature 98 F Temperature Source Pulse Rate 87 90 Respiratory Rate 18 18 Respiratory Pattern Blood Pressure 137/63 H 147/71 H Blood Pressure Mean 87 96 Pulse Ox 97 97 Oxygen Delivery Method Room Air MDM MDM MDM Narrative Medical decision making narrative: The differential diagnosis includes but not limited to intravascular volume depletion versus dehydration versus other electrolyte abnormality. She does have history of chronic kidney disease. She and her state what usually happens that she receives IV fluids and gets her labs checked. I reviewed her laboratory work and she has a slight leukocytosis of 12.9 both compared to prior labs she has had prior leukocytosis. Hemoglobin normal at 12.4 with platelet count normal at 302. CMP shows potassium elevated 5.6. BUN of 50 and creatinine 2.2. Glucose of 170, LFTs show an alk phos elevated at 184 which I think is nonspecific, lipase normal at 36 so I doubt pancreatitis. I do not feel she requires CT imaging currently. I reviewed her prior ED visits and she was admitted back in March of this year with hyperkalemia and acute kidney injury. Her baseline usually runs around 1.7. Upon repeat examination, she states that she thinks the diarrhea has slowed down but she is still having abdominal cramping. They state that she usually receives Bentyl. She prefers intramuscular injection. 20 mg was ordered. Given her slight hyperkalemia, EKG will be obtained. I also ordered a second bolus of normal saline. EKG was obtained and interpreted by myself independently as normal sinus rhythm at 86 bpm without ectopy or acute ST changes. No STEMI. There is no significant change from EKG dated July 19, 2024. Repeat examination after Bentyl shows improvement in her abdominal cramping. She states she has a prescription for this at home and she also has Lomotil. I discussed possible observation with the patient given her elevated creatinine of 2.2, but she feels well enough to be discharged. She and her state that they have an appointment at the infusion center for continued IV fluids. She was told that she should have her potassium rechecked as well as her renal function in the next few days. I feel that as she is motivated for discharge that she can be discharged to follow-up. Return instructions to the emergency department were reviewed. Disposition is discharged home in stable condition. History & Record Review Discussion w/independent historian: Patient Additional record(s) reviewed:: Prior ED visit and Prior labs Lab Data Attestation: I reviewed the patient's lab results. Labs: Laboratory Results - last 24 hr 01/02/25 17:50 WBC 12.9 H RBC 5.02 Hgb 12.4 Hct 40.8 MCV 81.3 MCH 24.7 L MCHC 30.4 L RDW Std Deviation 49.5 H RDW Coeff of Jan 17.0 H Plt Count 302 MPV 11.0 Immature Gran % (Auto) 0.700 Neut % (Auto) 69.9 Lymph % (Auto) 20.0 Drew % (Auto) 5.9 Eos % (Auto) 3.2 Baso % (Auto) 0.3 Absolute Neuts (auto) 9.0 H Absolute Lymphs (auto) 2.59 Nucleated RBC % 0.2 Sodium 135 Potassium 5.6 H Chloride 104 Carbon Dioxide 19.8 L Anion Gap 12 BUN 50 H Creatinine 2.20 H Estim Creat Clear Calc 24.46 L Est GFR (MDRD) Non-Af 24 L BUN/Creatinine Ratio 22.9 H Glucose 170 H Calcium 10.0 Total Bilirubin 0.35 AST 17 ALT 9 Alkaline Phosphatase 184 H Total Protein 7.5 Albumin 3.7 Globulin 3.8 Albumin/Globulin Ratio 1.0 Lipase 36 Discharge Plan Triage Chief Complaint: General Illness ED Provider: Clarke Belcher Dx/Rx/DC Orders Clinical Impression: High output ileostomy, Hyperkalemia, Chronic kidney disease, Generalized weakness Instructions: ED Chronic Kidney Disease (CKD), ED Hyperkalemia, ED Weakness Uncertain Cause Prescriptions: No Action aspirin 81 mg tablet,delayed release (DR/EC) 81 mg PO DAILY Qty: 30 11RF nitroglycerin 0.4 mg tablet, sublingual 0.4 mg sublingual Q5-15M PRN (Reason: chest pain) Qty: 25 3RF Rx Instructions: do not exceed 3 doses per episode hyoscyamine sulfate 0.125 mg tablet 0.125 mg PO BID-QID PRN (Reason: dyspepsia) galantamine 16 mg capsule,ext rel. pellets 24 hr 16 mg PO QAM Qty: 30 6RF Rx Instructions: Administer with breakfast. Nurtec ODT 75 mg tablet,disintegrating 75 mg PO DAILY PRN (Reason: migraine headache) Qty: 16 6RF primidone 50 mg tablet 50 mg PO BID Qty: 60 6RF pregabalin 100 mg capsule 100 mg PO BID Qty: 60 5RF Humalog KwikPen Insulin 200 unit/mL (3 mL) insulin pen 220 unit subcut QDAY Qty: 99 1RF Patient Comments: turned pump off on Wednesday07/22/24 Rx Instructions: via insulin pump tramadol 50 mg tablet 50 mg PO BID PRN (Reason: pain) Trelegy Ellipta 100-62.5-25 mcg blister with device 1 inh inhalation QDAY Qty: 14 0RF acetaminophen 500 mg tablet 1,000 mg PO Q8 PRN (Reason: pain) triamcinolone acetonide 0.1 % ointment 1 applic topical DAILY PRN (Reason: psoriasis) buprenorphine [Butrans] 10 mcg/hour patch weekly 1 patch transdermal Q7D dicyclomine 10 mg Capsule 10 mg PO BID PRN (Reason: stomach) fluticasone propionate [Flonase Allergy Relief] 50 mcg/actuation spray,suspension 2 spray intranasal DAILY Qty: 16 3RF Rx Instructions: administer into each nostril clopidogrel 75 mg tablet 75 mg PO DAILY Qty: 28 11RF Repatha SureClick 140 mg/mL pen injector 140 mg subcut Q2W Qty: 6 3RF pantoprazole [Protonix] 40 mg tablet,delayed release (DR/EC) 40 mg PO BID Qty: 60 11RF cholecalciferol (vitamin D3) 1,250 mcg (50,000 unit) capsule 1,250 mcg PO .monthly Qty: 14 1RF albuterol sulfate 90 mcg/actuation HFA aerosol inhaler 2 puff INHALATION Q4-6H PRN (Reason: SOB) Qty: 8.5 0RF amlodipine 5 mg tablet 5 mg PO QDAY Qty: 30 11RF metoprolol tartrate 25 mg tablet 25 mg PO BID Qty: 180 3RF Rx Instructions: Take with 50 mg tablet to = 75 mg BID metoprolol tartrate 50 mg tablet 50 mg PO BID Qty: 180 3RF Rx Instructions: Take with 25 mg tablet to = 75 mg BID (DME) Omnipod 5 G6-G7 Pods (Gen 5) Cartridge See Rx Instructions .Route Qty: 45 1RF Rx Instructions: change every 48 hours (DME) Dexcom G7 Sensor Device See Rx Instructions .Route Qty: 9 3RF Rx Instructions: change every 10 days (DME) Handicap Placard See Rx Instructions .ROUTE .MEDSUPPLY Qty: 1 0RF Rx Instructions: As directed, length of time 3 years isosorbide dinitrate 30 mg tablet 30 mg PO BID Qty: 60 11RF duloxetine 60 mg capsule,delayed release(DR/EC) 60 mg PO BID Qty: 60 2RF lamotrigine 200 mg tablet 200 mg PO DAILY Qty: 30 2RF mirtazapine 7.5 mg tablet 7.5 mg PO QHS Qty: 30 2RF atorvastatin 80 mg tablet 80 mg PO QHS Qty: 90 1RF Patient Comments: cholesterol valacyclovir 500 mg tablet 500 mg PO Q12H PRN (Reason: HSV) Qty: 7 0RF diphenoxylate-atropine [Lomotil] 2.5-0.025 mg tablet 1 tab PO TID PRN (Reason: diarrhea) Qty: 90 2RF Primary Care Provider: Mala Mcgrath Referrals: Mala Mcgrath MD [Primary Care Provider, Internal Medicine] - 1-2 Days if not improving Activity Restrictions/Additional Instructions: Follow-up with your primary care provider in the next few days. You may need to have your electrolytes rechecked as well as your renal function. Go to the infusion center tomorrow as scheduled for IV fluids. Return with new or worsening symptoms. Print Language: Nepali Disposition Disposition: Home, Self Care
[2025-01-02 21:00] VITALS: BP 137/63; PULSE 87; RESP 18; O2SAT 97
[2025-01-02 22:12] VITALS: BP 147/71; PULSE 90; RESP 18; TEMP 36.6; O2SAT 97
== END 2025-01-02 22:19 | disposition home or self-care (01) ==
PROVIDERS: Emergency Provider Emergency Medicine; PCP Internal Medicine; Visit Provider Emergency Medicine
DX: K94.19 Other complications of enterostomy (principal); N18.4 Chronic kidney disease, stage 4 (severe); I50.32 Chronic diastolic (congestive) heart failure; I13.0 Hypertensive heart and chronic kidney disease with heart failure and stage 1 through stage 4 chronic kidney disease, or unspecified chronic kidney disease; J44.9 Chronic obstructive pulmonary disease, unspecified; K51.90 Ulcerative colitis, unspecified, without complications; E11.22 Type 2 diabetes mellitus with diabetic chronic kidney disease; E11.43 Type 2 diabetes mellitus with diabetic autonomic (poly)neuropathy; K31.84 Gastroparesis; E87.5 Hyperkalemia; Z95.828 Presence of other vascular implants and grafts; Z87.891 Personal history of nicotine dependence; E78.00 Pure hypercholesterolemia, unspecified; R53.1 Weakness; I25.10 Atherosclerotic heart disease of native coronary artery without angina pectoris
CPT/HCPCS: 36591; 80053; 83690; 85025; 93005; 96360; 96361; 96372; 99282

== ENCOUNTER 2025-01-08 11:22 | Outpatient (CLI) | payer MEDICARE, MEDICAID, SELFPAY ==
[2024-06-27 09:22] VITALS: BMI 30.9
[2025-01-08 11:39] VITALS: BP 146/62; PULSE 62; RESP 16; TEMP 36.6; O2SAT 95; BMI 33.6
[2025-01-08] MEDS: Lactated Ringers 1,000 ML 999 ML IV (11:40)
[2025-01-08] MEDS: 0.9% NaCl Peripheral Flush Adult IV (12:42)
[2025-01-08 12:45] VITALS: BP 119/59; PULSE 66
== END 2025-01-08 23:59 | disposition home or self-care (01) ==
LOC: MEDOUTP 11:22
PROVIDERS: PCP Internal Medicine; Referring Provider Student in an Organized Health Care Education/Training Program; Visit Provider Student in an Organized Health Care Education/Training Program
DX: E86.0 Dehydration (principal); R19.8 Other specified symptoms and signs involving the digestive system and abdomen
CPT/HCPCS: 96360; A4216

== ENCOUNTER → 2025-01-08 | Outpatient (CLI) | payer MEDICARE, MEDICAID, SELFPAY ==
[2024-06-27 09:22] VITALS: BMI 30.9
--- NOTE | 2025-01-08 09:33 | RAD_ITS ---
PROCEDURE: RAD/Wrist min 3 Views
== END | disposition home or self-care (01) ==
LOC: MTRAD 09:33
PROVIDERS: PCP Internal Medicine; Referring Provider Physician Assistant; Visit Provider Physician Assistant
DX: M25.532 Pain in left wrist (principal)
CPT/HCPCS: 73110

== ENCOUNTER 2025-01-10 11:14 | Outpatient (CLI) | payer MEDICARE, MEDICAID, SELFPAY ==
[2024-06-27 09:22] VITALS: BMI 30.9
[2025-01-10] MEDS: Lactated Ringers 1,000 ML 999 ML IV (11:45)
[2025-01-10 11:57] VITALS: BP 113/53; PULSE 60; RESP 16; TEMP 35.6; O2SAT 95; BMI 33.6
[2025-01-10] MEDS: 0.9% NaCl Peripheral Flush Adult IV (12:50)
[2025-01-10 12:56] VITALS: BP 143/50; PULSE 60; RESP 16; TEMP 35.9; O2SAT 96
== END 2025-01-10 23:59 | disposition home or self-care (01) ==
LOC: MEDOUTP 11:14
PROVIDERS: PCP Internal Medicine; Referring Provider Student in an Organized Health Care Education/Training Program; Visit Provider Student in an Organized Health Care Education/Training Program
DX: E86.0 Dehydration (principal); R19.8 Other specified symptoms and signs involving the digestive system and abdomen
CPT/HCPCS: 96360; A4216

== ENCOUNTER 2025-01-13 09:45 | Inpatient (IN) | payer MEDICARE, MEDICAID, SELFPAY ==
[2024-06-27 09:22] VITALS: BMI 30.9
[2025-01-13] VITALS (14 sets, daily range): BP systolic 66–147; BP diastolic 48–84; PULSE 18–120; RESP 16–99; TEMP 36.6–37.4; O2SAT 84–98; BMI 32.9; BMI 33.0
--- NOTE | 2025-01-13 09:52 | ED.VIS.GI ---
HPI HPI - GI History of Present Illness Chief Complaint: Diarrhea Informant: patient and EMS Narrative Narrative: Patient is a 64-year-old female with a history of UC, gastroparesis, and stage 4 CKD presenting with increased ileostomy output, nausea, and abdominal cramping. - Reports increased ileostomy output since 1500 yesterday, requiring emptying every 15 minutes throughout the night; output described as watery. - Attempts to drink fluids initially resulted in emesis; now able to keep fluids down but reports significant weakness and fatigue, making it difficult to prepare drinks. - Experiences severe nausea and lightheadedness when sitting up or standing. No syncopal episodes. - Reports decreased urine output since symptom onset. - Denies fever, sick contacts, recent travel, or consumption of suspicious foods. - Denies recent antibiotic use and has no history of C. diff. - Reports knee pain, described as "locking up" this morning; no prior issues recently. - Denies smoking. [facility] Medical History Left wrist sprain Bilateral lower extremity edema History of left common carotid artery stent placement History of stress test Immunity status testing Chronic kidney disease, stage 3b History of CAD (coronary artery disease) History of chronic kidney disease History of diabetes mellitus CAD (coronary artery disease) Dehydration Falls Hypoxic respiratory failure Hypercapnic respiratory failure Fatigue Low back pain Abnormality of gait and mobility Polyneuropathy Insulin pump titration Presence of insulin pump Health care maintenance Essential tremor Dementia History of stress test Fungal dermatitis Herpes genitalia Encounter for insertion of venous access port Post-menopausal Rash Back pain Arthritis Ambulates with cane History of renal disease High cholesterol Dietary restriction History of pain when walking History of echocardiogram Chronic kidney disease (CKD) stage G4/A2, severely decreased glomerular filtration rate (GFR) between 15-29 mL/min/1.73 square meter and albuminuria creatinine ratio between 30-299 mg/g Chronic kidney disease (CKD) stage G4/A1, severely decreased glomerular filtration rate (GFR) between 15-29 mL/min/1.73 square meter and albuminuria creatinine ratio less than 30 mg/g Ingrown toenail Neuropathy Hyperglycemia due to diabetes mellitus Frequent falls Tremor Depression Chronic pain Rheumatoid arthritis Congestive heart failure (CHF) Lumbar spondylosis Greater trochanteric bursitis CKD (chronic kidney disease) stage 3, GFR 30-59 ml/min Malaise and fatigue Vitamin B12 deficiency History of CAD (coronary artery disease) Memory loss Anxiety and depression Degenerative disc disease at L5-S1 level CAD (coronary artery disease) Cellulitis, abdominal wall Left shoulder pain Gastroparesis Vitamin D deficiency Acute kidney injury CKD (chronic kidney disease), stage IV High output ileostomy MGUS (monoclonal gammopathy of unknown significance) Elevated anti-tissue transglutaminase (tTG) IgA level Ileostomy present Short bowel syndrome Loss of hearing Wears glasses History of COVID-19 Anxiety Insulin dependent diabetes mellitus Walker as ambulation aid Fatty liver Migraine headache Hx of diabetic gastroparesis Gastric reflux Former smoker BiPAP (biphasic positive airway pressure) dependence Hypertension Cardiology follow-up encounter Myoclonic jerking Chronic narcotic use Avascular necrosis of bone of left hip Chronic back pain Non-alcoholic fatty liver disease Liver mass Ulcerative colitis Nonalcoholic steatohepatitis Chronic respiratory failure Smoking greater than 20 pack years Obesity Chronic respiratory failure with hypoxia, on home O2 therapy Diabetic gastroparesis Secondary pulmonary arterial hypertension Chronic diastolic (congestive) heart failure Type 2 diabetes mellitus with diabetic polyneuropathy BMI 31.0-31.9,adult Depression with anxiety Arthritis Menieres disease Hyperlipidemia Psoriasis Obstructive sleep apnea COPD (chronic obstructive pulmonary disease) FCHL (familial combined hyperlipidemia) DM2 (diabetes mellitus, type 2) Home Medications Medication Instructions Recorded Last Taken Type hyoscyamine sulfate 0.125 mg tablet 0.125 mg PO BID-QID PRN dyspepsia 12/23/23 07/18/24 History fluticasone propionate 50 2 spray intranasal DAILY allergies 01/04/24 01/12/25 Rx mcg/actuation nasal #16 grams spray,suspension (Flonase Allergy Relief) triamcinolone acetonide 0.1 % 1 applic topical DAILY PRN 02/17/24 07/24/24 History topical ointment psoriasis nitroglycerin 0.4 mg sublingual 0.4 mg sublingual Q5-15M PRN chest 02/24/24 Unknown Rx tablet pain #25 tabs evolocumab 140 mg/mL subcutaneous 140 mg subcut Q2W #6 mL 02/29/24 01/06/25 Rx pen injector (Geraldine Collins) dicyclomine 10 mg capsule 10 mg PO BID PRN stomach 03/11/24 01/12/25 History pantoprazole 40 mg tablet,delayed 40 mg PO BID GERD #60 tabs 03/29/24 01/12/25 Rx release (Protonix) cholecalciferol (vitamin D3) 1,250 1,250 mcg PO .monthly vit #14 caps 04/05/24 01/12/25 Rx mcg (50,000 unit) capsule buprenorphine 10 mcg/hour weekly 1 patch transdermal Q7D 04/24/24 01/06/25 History transdermal patch (Butrans) albuterol sulfate 90 mcg/actuation 2 puff inhalation Q4-6H PRN SOB 04/26/24 Unknown Rx aerosol inhaler #8.5 grams amlodipine 5 mg tablet 5 mg PO QDAY #30 tabs 05/15/24 01/12/25 Rx metoprolol tartrate 25 mg tablet 25 mg PO BID #180 tabs 06/14/24 01/12/25 Rx metoprolol tartrate 50 mg tablet 50 mg PO BID #180 tabs 06/14/24 01/12/25 Rx fluticasone fur. 100 mcg-umeclid 1 inh inhalation QDAY #14 ea 08/09/24 01/12/25 Rx 62.5 mcg-vilant 25 mcg inhalat.powder (Trelegy Ellipta) insulin pump cart,auto,BT,G6/7 #45 ea 09/11/24 Unknown Rx (Omnipod 5 G6-G7 Pods (Gen 5) subcutaneous cartridge) tramadol 50 mg tablet 50 mg PO BID PRN pain 09/12/24 Unknown History insulin lispro 200 unit/mL (3 mL) 220 unit (1.1 mL) subcut QDAY 09/14/24 Unknown Rx subcutaneous pen (Humalog KwikPen diabetes #99 mL U-200 Insulin) galantamine 16 mg 24 hr 16 mg PO QAM #30 caps 10/03/24 01/12/25 Rx capsule,extended release pregabalin 100 mg capsule 100 mg PO BID #60 caps 10/03/24 01/12/25 Rx primidone 50 mg tablet 50 mg PO BID #60 tabs 10/03/24 01/12/25 Rx rimegepant 75 mg disintegrating 75 mg PO DAILY PRN migraine 10/03/24 Unknown Rx tablet (Nurtec ODT) headache #16 tabs acetaminophen 500 mg tablet 1,000 mg PO Q8 PRN pain 10/12/24 Unknown History Dexcom G7 Sensor (blood-glucose #9 ea 10/17/24 Unknown Rx sensor) Handicap Placard #1 ea 10/17/24 Unknown Rx isosorbide dinitrate 30 mg tablet 30 mg PO BID heart #60 tabs 11/10/24 Unknown Rx duloxetine 60 mg capsule,delayed 60 mg PO BID mental health #60 caps 11/15/24 01/12/25 Rx release lamotrigine 200 mg tablet 200 mg PO DAILY mood #30 tabs 11/15/24 01/12/25 Rx mirtazapine 7.5 mg tablet 7.5 mg PO QHS mental health #30 11/15/24 01/12/25 Rx tabs atorvastatin 80 mg tablet 80 mg PO QHS CHOLESTEROL LOWERING 12/08/24 01/12/25 Rx #90 tabs valacyclovir 500 mg tablet 500 mg PO Q12H PRN HSV #7 tabs 12/18/24 Unknown Rx diphenoxylate-atropine 2.5 1 tab PO TID PRN diarrhea #90 tabs 01/01/25 Unknown Rx mg-0.025 mg tablet (Lomotil) aspirin 81 mg tablet,delayed 81 mg PO DAILY heart health #30 01/11/25 01/12/25 Rx release tabs clopidogrel 75 mg tablet 75 mg PO DAILY anti platelet #30 01/11/25 01/12/25 Rx TABLETS Allergy/AdvReac Type Severity Reaction Status Date / Time cinnamon (Cinnamon) Allergy Severe Anaphylaxis Verified 01/13/25 09:50 Influenza Virus Vaccines Allergy Severe Shortness Verified 01/13/25 09:50 of breath liraglutide (From Victoza) Allergy Severe Anaphylaxis Verified 01/13/25 09:50 ciprofloxacin Allergy Intermediate Swelling Verified 01/13/25 09:50 metformin (From Glucophage) Allergy Mild Nausea Verified 01/13/25 09:50 metronidazole (From Flagyl) Allergy Hives Verified 01/13/25 09:50 Metronidazole HCl (From Allergy Hives Verified 01/13/25 09:50 Flagyl) Penicillins Allergy Hives Verified 01/13/25 09:50 Sulfa (Sulfonamide Allergy Hives Verified 01/13/25 09:50 Antibiotics) ranolazine AdvReac Nausea/Vom/ Verified 01/13/25 09:50 Diarrhea [id number]-[id number] Reductase AdvReac Nausea/joints Verified 01/13/25 09:50 Inhibitor (Ufsrnyg-Swi-Skw ache Reductase Inhibitor) Family History Mother CVA (cerebral vascular accident) Diabetes Brother Heart disease of CAD at 65 Myocardial infarction Pancreatitis Father Cancer lymphomia Lymphoma Grandmother Myocardial infarction of ID in her 70s Sister COPD (chronic obstructive pulmonary disease) Surgical History Hx of CABG History of lateral meniscus repair of right knee History of vascular access device History of colonoscopy History of esophagogastroduodenoscopy (EGD) History of appendectomy History of coronary artery stent placement H/O total hip arthroplasty Status post total hip replacement, left History of cardiac catheterization History of History of cholecystectomy H/O coronary artery bypass surgery (05/18/12) History of coronary artery stent placement (01/12/18) H/O sinus surgery history closed fissure Ileostomy status H/O colectomy left thumb surgery H/O total hysterectomy ileostomy Social History household members: spouse and none Smoking Status: Former smoker quit date: 03/08/12 how long ago did patient quit smoking: quit in 2012; 0.5-1ppd x 30yrs alcohol intake: never substance use type: does not use diet: diabetic caffeine: No eating out: 1-3 times/week what type of physical activity do you participate in: none seatbelt use: always do you feel safe at home: Yes ROS ROS ED Constitutional Constitutional ED: Reports fatigue and malaise; Denies chills or fever(s) Eyes Eyes: Denies change in vision or diplopia ENT ENT ED: Denies rhinorrhea or sore throat Cardiovascular Cardiovascular: Denies chest pain or palpitations Respiratory/Chest Respiratory/Chest: Denies cough or dyspnea Gastrointestinal Gastrointestinal: Reports abdominal pain, diarrhea, nausea and vomiting; Denies hematochezia or melena Genitourinary Genitourinary ED: Reports decreased urination; Denies dysuria or hematuria Musculoskeletal Musculoskeletal: Denies back pain or neck pain Integumentary Denies abscess or rash Neurologic Neurologic: Denies headache(s), paresthesias or weakness Psychiatric Psychiatric: Denies suicidal thoughts EXAM Physical Exam Const Vital Signs: 01/13/25 09:47 01/13/25 10:36 01/13/25 11:46 Temperature 99.3 F H Temperature Source Axillary Pulse Rate 105 H 18 L Pulse Rate [Lying] 102 H Pulse Rate [Sitting (for 1 minute prior to obtaining)] 109 H Pulse Rate [Standing (for 1 minute prior to obtaining)] 120 H Respiratory Rate 18 99 H Blood Pressure 133/72 H 127/68 H Blood Pressure [Lying] 120/60 Blood Pressure [Sitting (for 1 minute prior to obtaining)] 111/70 Blood Pressure [Standing (for 1 minute prior to obtaining)] 93/60 Blood Pressure Mean 92 87 Blood Pressure Mean [Lying] 80 Blood Pressure Mean [Sitting (for 1 minute prior to obtaining)] 83 Blood Pressure Mean [Standing (for 1 minute prior to obtaining)] 71 Pulse Ox 96 97 Oxygen Delivery Method Room Air Room Air 01/13/25 13:00 01/13/25 13:53 01/13/25 13:54 Temperature Temperature Source Pulse Rate 103 H 109 H Pulse Rate [Lying] Pulse Rate [Sitting (for 1 minute prior to obtaining)] Pulse Rate [Standing (for 1 minute prior to obtaining)] 109 H Respiratory Rate Blood Pressure 126/80 H 66/49 L Blood Pressure [Lying] Blood Pressure [Sitting (for 1 minute prior to obtaining)] Blood Pressure [Standing (for 1 minute prior to obtaining)] 66/49 L Blood Pressure Mean 95 54 Blood Pressure Mean [Lying] Blood Pressure Mean [Sitting (for 1 minute prior to obtaining)] Blood Pressure Mean [Standing (for 1 minute prior to obtaining)] 54 Pulse Ox 95 Oxygen Delivery Method Room Air 01/13/25 14:00 01/13/25 16:00 Temperature Temperature Source Pulse Rate 103 H 103 H Pulse Rate [Lying] Pulse Rate [Sitting (for 1 minute prior to obtaining)] Pulse Rate [Standing (for 1 minute prior to obtaining)] Respiratory Rate Blood Pressure 147/59 H 138/84 H Blood Pressure [Lying] Blood Pressure [Sitting (for 1 minute prior to obtaining)] Blood Pressure [Standing (for 1 minute prior to obtaining)] Blood Pressure Mean 88 102 Blood Pressure Mean [Lying] Blood Pressure Mean [Sitting (for 1 minute prior to obtaining)] Blood Pressure Mean [Standing (for 1 minute prior to obtaining)] Pulse Ox 94 98 Oxygen Delivery Method Room Air Room Air Positive well nourished, well developed and obese General Appearance ED: well developed and NAD Nutritional Appearance: obese HEENT Reports moist mucous membranes normocephalic and atraumatic Eyes PERRL and EOMs intact bilaterally Neck full ROM and supple Resp normal respiratory effort and clear to auscultation bilaterally Cardio regular rate, regular rhythm and no murmurs GI non-tender and non-distended GI Narrative: Left lower quadrant ileostomy in place there is no tenderness around it or palpable large hernias. There is nonbloody yellowish fluid within the bag. Intertriginous nontender erythema consistent with Vicki lower abdominal wall folds. Auscultation: hyperactive bowel sounds Palpation: soft Back/Spine no CVA tenderness General Back: other FROM Extremity normal to inspection General Extremety ED: Negative for edema, pulses abnormal or tenderness General Extremity: Negative for edema or pulses abnormal Neuro oriented x3, CN's II-XII intact bilaterally and no sensory deficits noted Sensorium / Orientation: awake and alert Motor Exam: strength 5/5 throughout Psych Mood & Affect: anxious Skin no rashes or lesions noted and no wounds MDM MDM MDM Narrative Medical decision making narrative: Patient has positive orthostatics and signs and symptoms of dehydration. She was given one liter of IV fluid while we performed a workup, which shows significant leukocytosis of 20.7 with no bandemia. She is slightly hyperkalemic at 5.5. Her chronic kidney disease is not far off her baseline, with a current creatinine of 2.1 and a BUN of 41. Three days ago, her BUN and creatinine were 29 and 1.88, and a week before that, her BUN was 50 with a creatinine of 2.2, which is similar to today. I obtained an EKG, which shows non-specific ST-T wave abnormalities that are unchanged, with no specific changes of hyperkalemia. To treat the mildly elevated potassium, she was given 15 grams of Kayexalate orally, which she tolerated along with Zofran and some pain medication. Her liver enzymes and lipase are normal. Considering infectious etiologies, I sent a C. diff test, which came back negative, and an enteric bacterial panel, given that her diarrhea appears dark green and may be consistent with rotavirus; results are pending. After medications and IV fluids, I had staff repeat orthostatics, but even when she was lying down, she remained hypotensive in the high 60s and felt poorly and lightheaded. Given these findings, I believe she should be admitted. I ordered another liter of fluid and a CT of the abdomen/pelvis for further evaluation while awaiting the enteric bacterial panel results. Enteric bacterial panel returned all negative arguing against infectious bacterial etiology although this does not rule all infections out as it does not test for every possible infection. Significant CT interpretation delays ensued, prolonging the patient's ED disposition. The CT ended up returning with no acute abnormality or signs of specific bowel obstruction or inflammatory changes or fluid collections. I reviewed the images and report which I agree with. Given that the patient continues to be orthostatic after several parenteral fluid challenges and mild hyperkalemia, I think she would benefit from admission for further treatment. She states she has seen Dr. Rico with nephrology as an outpatient. Lab Data Attestation: I reviewed the patient's lab results. Labs: Laboratory Results - last 24 hr 01/13/25 09:53 WBC 20.7 H RBC 5.11 Hgb 12.4 Hct 41.1 MCV 80.4 L MCH 24.3 L MCHC 30.2 L RDW Std Deviation 49.1 H RDW Coeff of Jan 16.9 H Plt Count 251 MPV 11.1 Immature Gran % (Auto) 0.600 Neut % (Auto) 72.4 H Lymph % (Auto) 14.9 L [place] % (Auto) 3.9 Eos % (Auto) 7.8 H Baso % (Auto) 0.4 Absolute Neuts (auto) 15.0 H Absolute Lymphs (auto) 3.09 Nucleated RBC % 0 Sodium 136 Potassium 5.5 H Chloride 102 Carbon Dioxide 21.8 Anion Gap 12 BUN 41 H Creatinine 2.10 H Estim Creat Clear Calc 31.25 L Est GFR (MDRD) Non-Af 26 L BUN/Creatinine Ratio 19.5 Glucose 171 H Calcium 10.0 Total Bilirubin 0.39 AST 17 ALT 8 Alkaline Phosphatase 148 H Total Protein 7.2 Albumin 3.7 Globulin 3.6 Albumin/Globulin Ratio 1.0 Radiography Diagnostic Testing: Clinical Impression(s) from Imaging Studies Abdomen/Pelvis CT 01/13/25 14:00 IMPRESSION: No acute abnormality. Reading Location: [facility] Rhythm Strip Rhythm Strip: Sinus Rhythm Rate: 98 Ectopy: None EKG Initial EKG: Attestation: I personally reviewed and interpreted this EKG as follows: Interpretation: Sinus Rhythm, No Acute Injury Pattern, LAFB, S-T Depression (lateral w/ T-wave inv's) and Non-Specific ST Changes Prior EKG tracings: available for review Prior: Unchanged Management Discussion w/another healthcare provider: Hospitalist Discharge Plan Dx/Rx/DC Orders Clinical Impression: Acute dehydration, Acute diarrhea, Acute hyperkalemia, CKD (chronic kidney disease), stage IV, Orthostatic hypotension Disposition Disposition: Acute Care Hospital [facility]
--- OUTSIDE RECORDS SUMMARY | 2025-01-13 09:55 | XMS RPT_ITS | CCD ---
Author Organization [facility] CliniSyla Care Team Providers Care Knapsack Sprayer Name Role Phone MILTON, DEAN C Unavailable Unavailable MILTON, DEAN C Unavailable Unavailable Corkwell, Clarita Unavailable Unavailable Corkwell, Clarita Unavailable Unavailable PCP, Pt states no Unavailable Unavailable Oleghe, Efewongbe Meme Unavailable Unav ailable Glessing, Huma Juan Unavailable Unavaila ble Glessing, Huma Juan Unavailable Unavaila ble Oleghe, Efewongbe Meme Unavailable Unav ailable Glessing, Huma Juan Unavailable Unavaila ble Alireza Puente Unavailable Unavailable PROVIDER, UNKNOWN Unavailable Unavailable Dmitry Baltazar Unavailable Unavailable Thomae, Brennan Unavailable Unavailable Oleghe, Efewongbe B Unavailable Unavailable None, No PCP Unavailable Unavailable None, No PCP Unavailable Unavailable Nealghe, Efewongbe B Unavailable Unavailable Unavailable Mala Mcgrath MD Primary Care Provider Royce Vaz Unavailable Kieran Rico MD Unavailable Friend Aj MANNING Unavailable Susie Joy RD Unavailable Mala Mcgrath MD Primary Care Provider Mala Mcgrath MD Primary Care Provider Royce Vaz Unavailable Kieran Rico MD Unavailable NIKI BENÍTEZ Attending Unavailable KAITLIN EFEVELIOONGBE B Primary Care Unavailable SHERINE WHEAT Attending Unavailable OLEGHE, EFEWONGBE B Primary Care Unavailable Devi Van Attending Unavailable Devi Van Referring Unavailable Oleghe, Efewongbe Primary Care Unavailable Oleghe, Efewongbe Primary Care Unavailable Oleghe, Efewongbe Attending Unavailable Oleghe, Efewongbe Referring Unavailable iTffany Crystal Attending Unavailable Oleghe, Efewongbe Primary Care Unavailable [place], Shiva Referring Unavailable [place], Shiva Admitting Unavailable [place], Shiva Attending Unavailable Oleghe, Efewongbe Primary Care Unavailable Devi Van Attending Unavailable Oleghe, Efewongbe Primary Care Unavailable Oleghe, Efewongbe Referring Unavailable Tiffany Crystal Attending Unavailable Oleghe, Efewongbe Primary Care Unavailable Oleghe, Efewongbe Attending Unavailable Oleghe, Efewongbe Referring Unavailable Oleghe, Efewongbe Primary Care Unavailable Baddour, Herbert Referring Unavailable Baddour Herbert Attending Unavailable Oleghe, Efewongbe Primary Care Unavailable Baddour, Herbert Referring Unavailable Baddour Herbert Attending Unavailable Oleghe, Efewongbe Primary Care Unavailable Baddour, Herbert Referring Unavailable Baddour Herbert Attending Unavailable Oleghe, Efewongbe Primary Care Unavailable Devi Van Attending Unavailable Devi Van Referring Unavailable Oleghe, Efewongbe Primary Care Unavailable Devi Van Attending Unavailable Devi Van Referring Unavailable Oleghe, Efewongbe Primary Care Unavailable Devi Van Attending Unavailable Devi Van Referring Unavailable Oleghe, Efewongbe Primary Care Unavailable Devi Van Attending Unavailable Devi Van Referring Unavailable Oleghe, Efewongbe Primary Care Unavailable Devi Van Referring Unavailable Devi Van Attending Unavailable Oleghe, Efewongbe Primary Care Unavailable Devi Van Attending Unavailable Devi Van Referring Unavailable Oleghe, Efewongbe Primary Care Unavailable Juan Carlos Gerber Attending Unavailable Jopperi, Shiva Admitting Unavailable Shiva Chandler Consulting Unavailable Oleghe, Efewongbe Primary Care Unavailable Juan Carlos Gerber Consulting Unavailable Barrington, Castillo Admitting Unavailable Barrington, Castillo Attending Unavailable Barrington, Castillo Consulting Unavailable Oleghe, Efewongbe Primary Care Unavailable Tanphaichitr, Natthavat Consulting Unavaila ble Devi Van Attending Unavailable Devi Van Referring Unavailable Oleghe, Efewongbe Primary Care Unavailable Devi Van Attending Unavailable Oleghe, Efewongbe Primary Care Unavailable Devi Van Referring Unavailable Devi Van Attending Unavailable Oleghe, Efewongbe Primary Care Unavailable Devi Van Referring Unavailable Devi Van Attending Unavailable Oleghe, Efewongbe Primary Care Unavailable Devi Van Referring Unavailable Devi Van Attending Unavailable Devi Van Referring Unavailable Oleghe, Efewongbe Primary Care Unavailable Devi Van Attending Unavailable Devi Van Referring Unavailable Oleghe, Efewongbe Primary Care Unavailable Devi Van Attending Unavailable Devi Van Referring Unavailable Oleghe, Efewongbe Primary Care Unavailable Shiva Spencer Attending Unavailable Oleghe, Efewongbe Primary Care Unavailable Shiva Spencer Referring Unavailable Devi Van Attending Unavailable Devi Van Referring Unavailable Oleghe, Efewongbe Primary Care Unavailable Devi Van Attending Unavailable Devi Van Referring Unavailable Oleghe, Efewongbe Primary Care Unavailable Devi Van Attending Unavailable Devi Van Referring Unavailable Oleghe, Efewongbe Primary Care Unavailable Devi Van Attending Unavailable Devi Van Referring Unavailable Oleghe, Efewongbe Primary Care Unavailable Friend, Aj Referring Unavailable Friend, Aj Attending Unavailable Oleghe, Efewongbe Primary Care Unavailable Devi Van Attending Unavailable Devi Van Referring Unavailable Oleghe, Efewongbe Primary Care Unavailable Devi Van Attending Unavailable Devi Van Referring Unavailable Oleghe, Efewongbe Primary Care Unavailable Devi Van Attending Unavailable Devi Van Referring Unavailable Oleghe, Efewongbe Primary Care Unavailable Devi Van Attending Unavailable Devi Van Referring Unavailable Oleghe, Efewongbe Primary Care Unavailable Devi Van Attending Unavailable Devi Van Referring Unavailable Oleghe, Efewongbe Primary Care Unavailable Devi Van Attending Unavailable Devi Van Referring Unavailable Oleghe, Efewongbe Primary Care Unavailable Jade Castaneda Attending Unavailable Jade Castaneda Referring Unavailable Oleghe, Efewongbe Primary Care Unavailable Devi Van Attending Unavailable Devi Van Referring Unavailable Oleghe, Efewongbe Primary Care Unavailable Devi Van Attending Unavailable Devi Van Referring Unavailable Oleghe, Efewongbe Primary Care Unavailable Castillo Ferris Admitting Unavailable Castillo Ferris Attending Unavailable Tanphaichitr, Natthavat Consulting Unavaila ble Oleghe, Efewongbe Primary Care Unavailable Henri Camacho Attending Unavailable Henri Camacho Referring Unavailable Oleghe, Efewongbe Primary Care Unavailable Devi Van Attending Unavailable Devi Van Referring Unavailable Oleghe, Efewongbe Primary Care Unavailable Devi Van Attending Unavailable Oleghe, Efewongbe Primary Care Unavailable Devi Van Referring Unavailable Oleghe, Efewongbe Referring Unavailable Royce Martínez Attending Unavailable Oleghe, Efewongbe Primary Care Unavailable Tiffany Crystal Attending Unavailable Oleghe, Efewongbe Primary Care Unavailable Roberto Brewster Attending Unavailable Oleghe, Efewongbe Primary Care Unavailable Delgado Castroapradee Attending UnavailDelgado Briceapradee Consulting Unavailabl Roberto Peck Admitting Unavailable Oleghe, Efewongbe Primary Care Unavailable Roberto Brewster Consulting Unavailable Koram, Audrey Rosie Consulting Unavailable Genna, Audrey Rosie Attending Unavailable Devi Van Attending Unavailable Oleghe, Efewongbe Primary Care Unavailable Devi Van Referring Unavailable Paris BIOLOGICAL PLANT OPERATOR Tonia Attending Unavailable [place] BIOLOGICAL PLANT OPERATOR, Tonia Referring Unavailable Oleghe, Efewongbe Primary Care Unavailable Brian Ortegaison Referring Unavailable Jennifer Ortega Attending Unavailable Oleghe, Efewongbe Primary Care Unavailable Devi Van Attending Unavailable Devi Van Referring Unavailable Oleghe, Efewongbe Primary Care Unavailable Devi Van Attending Unavailable Oleghe, Efewongbe Primary Care Unavailable Devi Van Referring Unavailable Devi Van Attending Unavailable Devi Van Referring Unavailable Oleghe, Efewongbe Primary Care Unavailable Isckarus, Mansour Referring Unavailable Isckarus, Mansour Attending Unavailable Oleghe, Efewongbe Primary Care Unavailable Jacky, Jayaprakas Attending Unavailable Jacky, Jayaprakas Referring Unavailable Oleghe, Efewongbe Primary Care Unavailable FriendAj Attending Unavailable Aj Andino Referring Unavailable Oleghe, Efewongbe Primary Care Unavailable Devi Van Attending Unavailable Oleghe, Efewongbe Primary Care Unavailable Devi Van Referring Unavailable Devi Van Attending Unavailable Oleghe, Efewongbe Primary Care Unavailable Devi Van Referring Unavailable Devi Van Attending Unavailable Oleghe, Efewongbe Primary Care Unavailable Devi Van Referring Unavailable Deiv Van Attending Unavailable Oleghe, Efewongbe Primary Care Unavailable Devi Van Referring Unavailable Devi Van Attending Unavailable Oleghe, Efewongbe Primary Care Unavailable Devi Van Referring Unavailable Devi Van Attending Unavailable Oleghe, Efewongbe Primary Care Unavailable Devi Van Referring Unavailable Devi Van Attending Unavailable Devi Van Referring Unavailable Oleghe, Efewongbe Primary Care Unavailable Devi Van Attending Unavailable Devi Van Referring Unavailable Oleghe, Efewongbe Primary Care Unavailable Isckarus, Mansour Referring Unavailable Isckarus, Mansour Attending Unavailable Oleghe, Efewongbe Primary Care Unavailable Oleghe, Efewongbe Primary Care Unavailable Reodica Clarke Attending Unavailable Oleghe, Efewongbe Primary Care Unavailable Reemanuel Clarke Attending Unavailable Burton Chavez Attending Unavailabl e Oleghe, Efewongbe Primary Care Unavailable Devi Van Attending Unavailable Devi Van Referring Unavailable Oleghe, Efewongbe Primary Care Unavailable Devi Van Attending Unavailable Devi Van Referring Unavailable Oleghe, Efewongbe Primary Care Unavailable Devi Van Attending Unavailable Devi Van Referring Unavailable Oleghe, Efewongbe Primary Care Unavailable Devi Van Attending Unavailable Devi Van Referring Unavailable Oleghe, Efewongbe Primary Care Unavailable Devi Van Attending Unavailable AtaDevi muller Referring Unavailable Oleghe, Efewongbe Primary Care Unavailable Devi Van Attending Unavailable Devi Van Referring Unavailable Oleghe, Efewongbe Primary Care Unavailable Devi Van Attending Unavailable Devi Van Referring Unavailable Oleghe, Efewongbe Primary Care Unavailable Devi Van Attending Unavailable Devi Van Referring Unavailable Oleghe, Efewongbe Primary Care Unavailable Devi Van Attending Unavailable Devi Van Referring Unavailable Oleghe, Efewongbe Primary Care Unavailable Devi Van Attending Unavailable Oleghe, Efewongbe Primary Care Unavailable Devi Van Referring Unavailable Devi Van Attending Unavailable Devi Van Referring Unavailable Oleghe, Efewongbe Primary Care Unavailable Devi Van Attending Unavailable Devi Van Referring Unavailable Oleghe, Efewongbe Primary Care Unavailable Oleghe, Efewongbe Primary Care Unavailable Donnie Christopher Attending Unavailable Donnie Christopher Referring Unavailable Herbert Marks Attending Unavailable Oleghe, Efewongbe Primary Care Unavailable Devi Van Attending Unavailable Oleghe, Efewongbe Primary Care Unavailable Devi Van Referring Unavailable Devi Van Attending Unavailable Devi Van Referring Unavailable Oleghe, Efewongbe Primary Care Unavailable Devi Van Attending Unavailable Devi Van Referring Unavailable Oleghe, Efewongbe Primary Care Unavailable Devi Van Attending Unavailable Devi Van Referring Unavailable Oleghe, Efewongbe Primary Care Unavailable Devi Van Attending Unavailable Devi Van Referring Unavailable Oleghe, Efewongbe Primary Care Unavailable Devi Van Attending Unavailable Devi Van Referring Unavailable Oleghe, Efewongbe Primary Care Unavailable IsckarusMichael Referring Unavailable IsckarusMichael Attending Unavailable Oleghe, Efewongbe Primary Care Unavailable Devi Van Attending Unavailable Devi Van Referring Unavailable Oleghe, Efewongbe Primary Care Unavailable Devi Van Attending Unavailable Devi Van Referring Unavailable Oleghe, Efewongbe Primary Care Unavailable Devi Van Attending Unavailable Devi Van Referring Unavailable Oleghe, Efewongbe Primary Care Unavailable Devi Van Attending Unavailable Oleghe, Efewongbe Primary Care Unavailable Devi Van Referring Unavailable FriendAj Attending Unavailable Friend, Aj Referring Unavailable Oleghe, Efewongbe Primary Care Unavailable Devi Van Attending Unavailable Devi Van Referring Unavailable Oleghe, Efewongbe Primary Care Unavailable Jade Castaneda Attending Unavailable Jade Castaneda Referring Unavailable Oleghe, Efewongbe Primary Care Unavailable Devi Van Attending Unavailable Devi Van Referring Unavailable Oleghe, Efewongbe Primary Care Unavailable Audrey Vail Attending Unavailable Roberto Brewster Admitting Unavailable Eliza Castro Consulting Unavailabl e Oleghe, Efewongbe Primary Care Unavailable Roberto Brewster Consulting Unavailable Shiva Chandler Consulting Unavailable Juan Carlos Gerber Attending Unavailable Shiva Chandler Admitting Unavailable Oleghe, Efewongbe Primary Care Unavailable Herbert Marks Referring Unavailable Herbert Marks Attending Unavailable Oleghe, Efewongbe Primary Care Unavailable Henri Camacho Attending Unavailable Oleghe, Efewongbe Primary Care Unavailable Oleghe, Efewongbe Referring Unavailable Oleghe, Efewongbe Primary Care Unavailable Fish Menon Attending Unavailable Tiffany Crystal Attending Unavailable Oleghe, Efewongbe Primary Care Unavailable Nereyda Hubbard Attending Unavailable Oleghe, Efewongbe Primary Care Unavailable Oleghe, Efewongbe Referring Unavailable Suellen Laureano Attending Unavailable Oleghe, Efewongbe Primary Care Unavailable Shiva Spencer Attending Unavailable Oleghe, Efewongbe Primary Care Unavailable Oleghe, Efewongbe Referring Unavailable Jade Castaneda Attending Unavailable Oleghe, Efewongbe Primary Care Unavailable Oleghe, Efewongbe Referring Unavailable Tiffany Crystal Attending Unavailable Oleghe, Efewongbe Primary Care Unavailable Henri Camacho Attending Unavailable Oleghe, Efewongbe Referring Unavailable Oleghe, Efewongbe Primary Care Unavailable Tiffany Crystal Attending Unavailable Oleghe, Efewongbe Primary Care Unavailable Oleghe, Efewongbe Primary Care Unavailable Nereyda Hubbard Attending Unavailable Oleghe, Efewongbe Referring Unavailable Oleghe, Efewongbe Primary Care Unavailable Donnie Christopher Attending Unavailable Oleghe, Efewongbe Referring Unavailable Oleghe, Efewongbe Primary Care Unavailable Linda Rizzo Attending Unavailable Oleghe, Efewongbe Referring Unavailable Oleghe, Efewongbe Primary Care Unavailable Fish Menon Attending Unavailable Tiffany Crystal Attending Unavailable Oleghe, Efewongbe Primary Care Unavailable Tiffany Crystal Attending Unavailable Oleghe, Efewongbe Primary Care Unavailable Nereyda Hubbard Attending Unavailable Oleghe, Efewongbe Referring Unavailable Oleghe, Efewongbe Primary Care Unavailable Oleghe, Efewongbe Primary Care Unavailable Herbert Marks Attending Unavailable Oleghe, Efewongbe Referring Unavailable Suellen Laureano Attending Unavailable Oleghe, Efewongbe Primary Care Unavailable Oleghe, Efewongbe Referring Unavailable Oleghe, Efewongbe Primary Care Unavailable Royce Martínez Attending Unavailable Tiffany Crystal Attending Unavailable Oleghe, Efewongbe Primary Care Unavailable Herbert Marks Referring Unavailable Herbert Marks Attending Unavailable Oleghe, Efewongbe Primary Care Unavailable Jennifer Ortega Attending Unavailable Oleghe, Efewongbe Referring Unavailable Oleghe, Efewongbe Primary Care Unavailable Oleghe, Efewongbe Referring Unavailable Serenity Blackburn Attending Unavail able Oleghe, Efewongbe Primary Care Unavailable Tiffany Crystal Attending Unavailable Oleghe, Efewongbe Primary Care Unavailable Herbert Marks Referring Unavailable Herbert Marks Attending Unavailable Oleghe, Efewongbe Primary Care Unavailable Jade Castaneda Attending Unavailable Oleghe, Efewongbe Referring Unavailable Oleghe, Efewongbe Primary Care Unavailable Tiffany Crystal Attending Unavailable Oleghe, Efewongbe Primary Care Unavailable Jade Castaneda Attending Unavailable Oleghe, Efewongbe Referring Unavailable Oleghe, Efewongbe Primary Care Unavailable Suellen Laureano Attending Unavailable Oleghe, Efewongbe Primary Care Unavailable Aj Andino Attending Unavailable Oleghe, Efewongbe Primary Care Unavailable Oleghe, Efewongbe Referring Unavailable Herbert Marks Referring Unavailable Herbert Marks Attending Unavailable Oleghe, Efewongbe Primary Care Unavailable Jade Castaneda Attending Unavailable Oleghe, Efewongbe Referring Unavailable Oleghe, Efewongbe Primary Care Unavailable Fish Menon Attending Unavailable Oleghe, Efewongbe Primary Care Unavailable Suellen Laureano Attending Unavailable Oleghe, Efewongbe Primary Care Unavailable Nereyda Hubbard Attending Unavailable Oleghe, Efewongbe Referring Unavailable Oleghe, Efewongbe Primary Care Unavailable Tiffany Crystal Attending Unavailable Oleghe, Efewongbe Primary Care Unavailable Debra Benavides Attending Unavailable Oleghe, Efewongbe Referring Unavailable Oleghe, Efewongbe Primary Care Unavailable Fish Menon Attending Unavailable Oleghe, Efewongbe Referring Unavailable Oleghe, Efewongbe Primary Care Unavailable Tiffany Crystal Attending Unavailable Oleghe, Efewongbe Primary Care Unavailable Herbert Marks Attending Unavailable Oleghe, Efewongbe Referring Unavailable Oleghe, Efewongbe Primary Care Unavailable Oleghe, Efewongbe Referring Unavailable Oleghe, Efewongbe Attending Unavailable Oleghe, Efewongbe Primary Care Unavailable Michael Barajas Attending Unavailable Oleghe, Efewongbe Referring Unavailable Oleghe, Efewongbe Primary Care Unavailable Henri Camacho Attending Unavailable Henri Camacho Referring Unavailable Henri Camacho Consulting Unavailable Oleghe, Efewongbe Primary Care Unavailable Shiva Spencer Attending Unavailable Shiva Spencer Referring Unavailable Oleghe, Efewongbe Primary Care Unavailable Tiffany Crystal Attending Unavailable Oleghe, Efewongbe Primary Care Unavailable Vikas Hill Referring Unavailable Nazario Verduzco Attending Unavailable Oleghe, Efewongbe Primary Care Unavailable Jennifer Ortega Referring Unavailable Shiva Spencer Attending Unavailable Oleghe, Efewongbe Primary Care Unavailable Tiffany Crystal Attending Unavailable Oleghe, Efewongbe Primary Care Unavailable Oleghe, Efewongbe Primary Care Unavailable Hollie Fulton NP Attending Unavailable Oleghe, Efewongbe Referring Unavailable Tiffany Crystal Attending Unavailable Oleghe, Efewongbe Primary Care Unavailable Henri Camacho Attending Unavailable Oleghe, Efewongbe Primary Care Unavailable Oleghe, Efewongbe Referring Unavailable Oleghe, Efewongbe Primary Care Unavailable Aj Andino Attending Unavailable Oleghe, Efewongbe Referring Unavailable Herbert Marks Referring Unavailable Herbert Marks Attending Unavailable Oleghe, Efewongbe Primary Care Unavailable Henri Camacho Attending Unavailable Oleghe, Efewongbe Primary Care Unavailable Oleghe, Efewongbe Referring Unavailable Tiffany Crystal Attending Unavailable Oleghe, Efewongbe Primary Care Unavailable Tonia Toledo NP Attending Unavailable Oleghe, Efewongbe Primary Care Unavailable Oleghe, Efewongbe Referring Unavailable Henri Camacho Attending Unavailable Oleghe, Efewongbe Referring Unavailable Oleghe, Efewongbe Primary Care Unavailable Jade Castaneda Attending Unavailable Oleghe, Efewongbe Referring Unavailable Oleghe, Efewongbe Primary Care Unavailable Suellen Laureano Attending Unavailable Oleghe, Efewongbe Primary Care Unavailable Devi Van Attending Unavailable Devi Van Referring Unavailable Oleghe, Efewongbe Primary Care Unavailable Devi Van Attending Unavailable Devi Van Referring Unavailable Oleghe, Efewongbe Primary Care Unavailable Devi Van Attending Unavailable Oleghe, Efewongbe Primary Care Unavailable Devi Van Referring Unavailable Devi Van Attending Unavailable Devi Van Referring Unavailable Oleghe, Efewongbe Primary Care Unavailable Devi Van Attending Unavailable Oleghe, Efewongbe Primary Care Unavailable Devi Van Referring Unavailable Devi Van Attending Unavailable Oleghe, Efewongbe Primary Care Unavailable Devi Van Referring Unavailable Kendrick Herbert Referring Unavailable Herbert Marks Attending Unavailable Oleghe, Efewongbe Primary Care Unavailable Tiffany Crystal Attending Unavailable Oleghe, Efewongbe Primary Care Unavailable Oleghe, Efewongbe Primary Care Unavailable Michael Barajas Attending Unavailable Oleghe, Efewongbe Referring Unavailable Jade Castaneda Attending Unavailable Oleghe, Efewongbe Referring Unavailable Oleghe, Efewongbe Primary Care Unavailable Royce Martínez Attending Unavailable Oleghe, Efewongbe Referring Unavailable Oleghe, Efewongbe Primary Care Unavailable Tiffany Crystal Attending Unavailable Oleghe, Efewongbe Primary Care Unavailable Tiffany Crystal Attending Unavailable Oleghe, Efewongbe Primary Care Unavailable Suellen Laureano Attending Unavailable Oleghe, Efewongbe Primary Care Unavailable Shiva Chandler Attending Unavailable Devi Van Attending Unavailable Oleghe, Efewongbe Primary Care Unavailable Devi Van Referring Unavailable Johanna, Shiva Referring Unavailable Johanna, Shiva Consulting Unavailable Johanna Shiva Attending Unavailable Oleghe, Efewongbe Primary Care Unavailable Johanna, Shiva Referring Unavailable Johanna, Shiva Consulting Unavailable [place], Shiva Admitting Unavailable Jennifer Ortega Attending Unavailable Oleghe, Efewongbe Primary Care Unavailable Devi Van Attending Unavailable Oleghe, Efewongbe Primary Care Unavailable Devi Van Referring Unavailable Devi Van Attending Unavailable Oleghe, Efewongbe Primary Care Unavailable Devi Van Referring Unavailable Devi Van Attending Unavailable Oleghe, Efewongbe Primary Care Unavailable Devi Van Referring Unavailable Devi Van Attending Unavailable Oleghe, Efewongbe Primary Care Unavailable Devi Van Referring Unavailable Devi Van Attending Unavailable Oleghe, Efewongbe Primary Care Unavailable Devi Van Referring Unavailable Serenity Blackburn Attending Unavail able Serenity Blackburn Referring Unavail able Oleghe, Efewongbe Primary Care Unavailable Allergies Allergy Classification Reported Allergen(s) Allergy Type Date of Onset Reaction(s) Facility Anticholinergics (1 source) Dicyclomine; Translations: [dicyclomine] [place] [id number] Work Phone: liraglutide (1 source) liraglutide; Translations: [Victoza SOPN] Drug Allergy [place] [id number] Work Phone: metFORMIN (1 source) metFORMIN; Translations: [metformin] Drug Allergy [place] [address] Work Phone: Nitroimidazoles (antibiotic) (1 source) metroNIDAZOLE; Translations: [Flagyl] Drug Allergy [place] [address] Work Phone: Penicillins (antibiotic) (1 source) Penicillins; Translations: [Penicillins] Drug Allergy [place] [address] Work Phone: Sulfonamides (antibiotic) (1 source) Sulfonamides (Antibiotic); Translations: [Sulfa Drugs] Drug Allergy [place] [address] Work Phone: Unclassified (1 source) Cinnamon Flavor OIL; Translations: [Cinnamon Flavor OIL] Allergy to drug (finding) [place] [address] Work Phone: (8 sources) cinnamon preparation; Translations: [CINNAMON] Drug Allergy 06-07-19 09 Anaphylaxis [facility] Repository (7 sources) codeine; Translations: [CODEINE] Drug Allergy 06-07-19 09 Intolerance [facility] Repository (9 sources) dicyclomine; Translations: [DICYCLOMINE] Drug Allergy 08-19-19 14 Vomiting [facility] Repository (7 sources) influenza virus vaccine; Translations: [FLU VACC [id number] UP(PF)] Drug Allergy 01-08-20 16 Shortness of Breath [facility] Repository (8 sources) liraglutide; Translations: [LIRAGLUTIDE] Drug Allergy 07-23-19 17 Other: See Comments [facility] Repository (8 sources) metFORMIN; Translations: [METFORMIN HCL] Drug Allergy 09-12-19 14 GI Upset [facility] Repository (8 sources) metroNIDAZOLE; Translations: [METRONIDAZOLE HCL] Drug Allergy 08-19-19 14 [facility] Repository (10 sources) Penicillins; Translations: [PENICILLINS] Propensity to adverse reactions to drug (disorder) 02-12-19 99 [facility] Repository (7 sources) sulfaSALAzine; Translations: [SULFASALAZINE] Drug Allergy 10-13-19 09 [facility] Repository (8 sources) Sulfonamides (Antibiotic); Translations: [SULFA (SULFONAMIDE ANTIBIOTICS)] Propensity to adverse reactions to drug (disorder) 10-13-19 09 [facility] Repository (8 sources) INFLUENZA VIRUS VACCINES; Translations: [INFLUENZA VIRUS VACCINES] Propensity to adverse reactions to drug (disorder) 12-17-19 16 Shortness of Breath, Other: See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 cirrhosis. Continue to control diabetes keep A1c below 7% continue low-fat diet and exercise program to keep weight under control. Avoid alcohol, NSAIDs. May use Tylenol up to 2000 mg daily. Should have yearly labs to assess liver along with FibroScan annually. Chief Complaint Follow up with labs from [facility]. Awaiting MRI results to be faxed from [facility] [place]. Liver bx done on 10/11/19. Ct ab pel done on 10/10/19.US done on 12/2017. History of Present IllnessPatient seen today in follow-up for liver abnormality. I was able to review her labs from [facility] and most recent outpatient labs ordered by myself. Biopsy of mass in liver showed no mass but steatohepatitis consistent with Quiroga. She did bring a copy of her MRI but unfortunately was unable to view the disc as a had no CD slot on my computers in the office. Report that was pulled up from [facility] website indicated no mass was noted but liver was consistent with diffuse steatohepatitis without cirrhosis. Patient is doing well functionally. She continues to complain of right upper quadrant pain which seems to be positional and movement in nature. Stools are normal from her ostomy output she is status post total colectomy for ulcerative colitis at age 22. She denies any new complaints since initial visit. Active Problems Problems CAD (coronary artery disease) (414.00) (I25.10) CHF (congestive heart failure) (428.0) (I50.9) Chronic diarrhea (787.91) (K52.9) Chronic kidney disease (585.9) (N18.9) COPD (chronic obstructive pulmonary disease) (496) (J44.9) Gastroparesis (536.3) (K31.84) Hyperlipidemia (272.4) (E78.5) Hypertension (401.9) (I10) Hypoxemia (799.02) (R09.02) Ileostomy present (V44.2) (Z93.2) Liver mass (573.8) (R16.0) Pancreatitis, recurrent (577.1) (K85.90) Sleep apnea (780.57) (G47.30) Type 2 diabetes mellitus (250.00) (E11.9) Surgical History Problems History of CABG History of Cardiac Cath Procedure Outcome: History of Section History of Cholecystectomy History of Ileostomy Family History Mother Family history of cerebrovascular accident (CVA) (V17.1) (Z82.3) Family history of diabetes mellitus (V18.0) (Z83.3) Brother Family history of congestive heart failure (V17.49) (Z82.49) Social History Problems Daily caffeine consumption Does not use illicit drugs (V49.89) (Z78.9) Former consumption of alcohol (V11.3) (Z87.898) Former smoker (V15.82) (Z87.891) 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 power 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 care (V49.89) (Z78.9) Allergies Medication dicyclomine Recorded By: Nany Cross; 10/08/2016 2:50:37 PM Flagyl Recorded By: Nany Cross; 10/08/2016 2:50:37 PM metformin Recorded By: Nany Cross; 10/08/2016 2:50:37 PM Penicillins Recorded By: Nany Cross; 10/08/2016 2:50:37 PM Sulfa Drugs Recorded By: Nany Cross; 10/08/2016 2:50:37 PM Victoza SOPN Recorded By: Nany Cross; 10/08/2016 2:50:37 PM Current Meds Medication NameInstruction ALPRAZolam 0.5 MG Oral TabletTAKE ONE-HALF TABLET BY MOUTH TWICE DAILY NEEDED Bacitracin OINT BD Insulin Syringe U/F 30G X 1/2" 1 MLUSE TO INJECT METHOTREXATE ONCE A WEEK Betamethasone Dipropionate Aug 0.05 % External Cream Breo Ellipta 100-25 MCG/INH Inhalation Aerosol Powder Breath Activated Butrans 10 MCG/HR Transdermal Patch WeeklyAPPLY 1 PATCH TO CLEAN DRY SKIN EVERY WEEK (G89.4) Calcium Acetate (Phos Binder) 667 MG Oral CapsuleTAKE 1 CAPSULE BY MOUTH TWICE A DAY Clobetasol Propionate 0.05 % External Solution Clopidogrel Bisulfate 75 MG Oral Tablettake One tablet by mouth daily CVS D3 50 MCG (2000 UT) Oral CapsuleTAKE 1 CAPSULE BY MOUTH EVERY DAY Dicyclomine HCl - 10 MG Oral Capsule DULoxetine HCl - 60 MG Oral Capsule Delayed Release ParticlesTake 1 capsule by mouth twice daily. Fenofibrate Micronized 200 MG Oral CapsuleTake 1 capsule by mouth daily with breakfast. Folic Acid 1 MG Oral TabletTAKE 1 TABLET BY MOUTH EVERY DAY FreeStyle Allison 14 Day Sensor Furosemide 40 MG Oral TabletTAKE 1 TABLET BY MOUTH EVERY DAY HumaLOG KwikPen 200 UNIT/ML Subcutaneous Solution Pen-injectorINJECT 45 UNITS SUBCUTANEOUSLY 3 TIMES A DAY Humira 40 MG/0.4ML Subcutaneous Prefilled Syringe Kit Hydrocortisone 2.5 % External Cream Isosorbide Dinitrate 30 MG Oral TabletTAKE ONE TABLET BY MOUTH THREE TIMES DAILY Loperamide HCl - 2 MG Oral Capsule Lyrica 75 MG Oral CapsuleTAKE ONE CAPSULE BY MOUTH TWICE DAILY Metoclopramide HCl - 5 MG Oral Tablet Metoprolol Tartrate 25 MG Oral TabletTAKE ONE TABLET TWICE DAILY. TAKE IN ADDITION TO 50 MG METOPROLOL FOR Metoprolol Tartrate 50 MG Oral Tablettake One AND one half tablet by mouth three times daily Nitroglycerin 0.4 MG Sublingual Tablet SublingualTAKE ONE TABLET UNDER THE TONGUE EVERY FIVE minutes UP TO THREE TIMES Ondansetron 4 MG Oral Tablet Disintegrating Pantoprazole Sodium 40 MG Oral Tablet Delayed ReleaseTAKE ONE TABLET BY MOUTH DAILY Topiramate 25 MG Oral TabletTAKE 1 TABLET BY MOUTH AT BEDTIME traMADol HCl - 50 MG Oral TabletTAKE ONE TABLET BY MOUTH FOUR TIMES DAILY NEEDED traZODone HCl - 50 MG Oral TabletTAKE 1 TABLET BY MOUTH AT BEDTIME NEEDED INSOMNIA Venlafaxine HCl ER 150 MG Oral Capsule Extended Release 24 HourTAKE 1 CAPSULE BY MOUTH EVERY DAY FOR DEPRESSION Vitals Vital Signs Recorded: 20Dec2019 09:35AM Bvkfzjpvtdf95.2 F Lvjaevlq480 Btgegjqpn13 Height5 ft 7 in Chwewl325 lb BMI Xvtguxguuf88.54 BSA Calculated2 Physical Exam Constitutional General appearance: In no acute distress . Eyes Anicteric Sclerae . Pulmonary Auscultation of lungs: Clear. Cardiovascular Auscultation of heart: RRR without murmur. Examination of extremities for edema: Normal. Abdomen Soft, non-tender. Bowel sounds normal. No hepatomegaly or splenomegaly. Signatures Electronically signed by : Brennan Duque DO; Dec 20 2019 12:47PM EST (Author) [facility] ([facility]ol [facility])on 11-30-2019 Initial Visit (Gastroenterology ) Diagnoses/Problems Assessed Gastroparesis (536.3) (K31.84) Pancreatitis, recurrent (577.1) (K85.90) Liver mass (573.8) (R16.0) Orders Liver mass Alpha Fetoprotein, Serum; Status:Active; Requested for:30Nov2019; Perform:Lab Services - Lab To Draw (Blood Test); Due:19Tvz3204;Ordered; For:Liver mass; Ordered By:Brennan Duque; C Reactive Protein, Serum; Status:Active; Requested for:52Vkd5339; Perform:Lab Services - Lab To Draw (Blood Test); Due:24Fnk3913;Ordered; For:Liver mass; Ordered By:Brennan Duque; Carcinoembryonic Antigen; Status:Active; Requested for:34Bsl1153; Perform:Lab Services - Lab To Draw (Blood Test); Due:14Eaf7720;Ordered; For:Liver mass; Ordered By:Brennan Duque; CELIAC DISEASE SEROLOGY PANEL; Status:Active; Requested for:63Eev2791; Perform:Lab Services - Lab To Draw (Blood Test); Due:68Fkt0381;Ordered; For:Liver mass; Ordered By:Brennan Duque; Ceruloplasmin, Serum; Status:Active; Requested for:83Bdd1566; Perform:Lab Services - Lab To Draw (Blood Test); Due:82Ubv0884;Ordered; For:Liver mass; Ordered By:Brennan Duque; Complete Blood Count + Differential; Status:Active; Requested for:87Eci6288; Perform:Lab Services - Lab To Draw (Blood Test); Due:06Qcs4455;Ordered; For:Liver mass; Ordered By:Brennan Duque; Comprehensive Metabolic Panel; Status:Active; Requested for:06Ghv8012; Perform:Lab Services - Lab To Draw (Blood Test); Due:80Tvi9795;Ordered; For:Liver mass; Ordered By:Brennan Duque; Ferritin, Serum; Status:Active; Requested for:28Eqw4671; Perform:Lab Services - Lab To Draw (Blood Test); Due:90Kxl8461;Ordered; For:Liver mass; Ordered By:Brennan Duque; Hepatitis A Ab IGM; Status:Active; Requested for:39Hso3217; Perform:Lab Services - Lab To Draw (Blood Test); Due:40Eqk2227;Ordered; For:Liver mass; Ordered By:Brennan Duque; Hepatitis B Surface Antibody; Status:Active; Requested for:37Awv3514; Perform:Lab Services - Lab To Draw (Blood Test); Due:54Pvy3389;Ordered; For:Liver mass; Ordered By:Brennan Duque; Hepatitis B Surface Antigen; Status:Active; Requested for:01Fgr9806; Perform:Lab Services - Lab To Draw (Blood Test); Due:76Dlh5793;Ordered; For:Liver mass; Ordered By:Brennan Duque; Hepatitis C Antibody Test; Status:Active; Requested for:53Hos6839; Perform:Lab Services - Lab To Draw (Blood Test); Due:16Sih3538;Ordered; For:Liver mass; Ordered By:Brennan Duque; Smooth Muscle Antibody Screen; Status:Active; Requested for:75Efa0775; Perform:Lab Services - Lab To Draw (Blood Test); Due:59Ckw8801;Ordered; For:Liver mass; Ordered By:Brennan Duque; Vitamin B12, Serum; Status:Active; Requested for:74Usf1103; Perform:Lab Services - Lab To Draw (Blood Test); Due:12Fpz9819;Ordered; For:Liver mass; Ordered By:Brennan Duque; Provider Impressions I recommended she had a complete battery of tests will get a copy of her MRI and CT scan and see her back afterwards. I informed them if more biopsies or testing needs done I may refer them to a colleague of [facility] for additional work-up. Chief Complaint Pt is here today for ER follow up C/o nausea vomiting, states they did a CT scan and found masses on her liver and did a biopsy. Had MRI of kidneys yesterday. Has disc with her. She also has an ileoileostomy. History of Present IllnessLola is a interesting 59-year-old female who is seen today at her self-referral for what is said to be liver masses. She was recently hospitalized at [facility] for diffuse abdominal pain pain was described as cramping throughout her abdomen she is admitted work-up was unremarkable her CT abdomen did show multiple hyperechoic lesions throughout the liver. She states a biopsy was done while hospitalized and she was told that she had "Quiroga". No follow-up was made. A follow-up MRI was performed confirming masses in her liver but no evidence of any other intra-abdominal process. Historically she was diagnosed with ulcerative colitis in her teens underwent subtotal colectomy at age 18 related toxic megacolon. He initially refused surgery had near experience and then had surgery. Underwent revision of her rectum with proctectomy and hysterectomy 20 years ago and had hemorrhage post operatively related to arterial injury. She is currently on no medicines for ulcerative colitis. Approximately 3 years ago she underwent GI work-up for pancreatitis which was felt and eventually determined to be related to Victoza. She underwent endoscopic ultrasound at that time was found to have no evidence of calcific pancreatitis or phlegmon. Since stopping Victoza she has had no episodes of pancreatitis. She is plagued by chronic persistent abdominal pain she describes as a cramping sensation like someone is squeezing her guts this is controlled currently with Bentyl 4 times daily which she takes with meals and at bedtime she is recent been diagnosed with gastroparesis will take Reglan only if she has persistent uncontrolled nausea. Most recent A1c was 7.1%. She denies any blood or mucoid discharge from her ostomy. 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 Her major concern is further work-up of her solid liver lesion. Active Problems Problems CAD (coronary artery disease) (414.00) (I25.10) CHF (congestive heart failure) (428.0) (I50.9) Chronic diarrhea (787.91) (K52.9) Chronic kidney disease (585.9) (N18.9) COPD (chronic obstructive pulmonary disease) (496) (J44.9) Gastroparesis (536.3) (K31.84) Hyperlipidemia (272.4) (E78.5) Hypertension (401.9) (I10) Hypoxemia (799.02) (R09.02) Ileostomy present (V44.2) (Z93.2) Pancreatitis, recurrent (577.1) (K85.90) Sleep apnea (780.57) (G47.30) Type 2 diabetes mellitus (250.00) (E11.9) Surgical History Problems History of CABG History of Cardiac Cath Procedure Outcome: History of Section History of Cholecystectomy History of Ileostomy Family History Mother Family history of cerebrovascular accident (CVA) (V17.1) (Z82.3) Family history of diabetes mellitus (V18.0) (Z83.3) Brother Family history of congestive heart failure (V17.49) (Z82.49) Social History Problems Does not use illicit drugs (V49.89) (Z78.9) Former consumption of alcohol (V11.3) (Z87.898) Former smoker (V15.82) (Z87.891) 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 power 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 care (V49.89) (Z78.9) Allergies Medication dicyclomine Recorded By: Nany Cross; 10/08/2016 2:50:37 PM Flagyl Recorded By: Nany Cross; 10/08/2016 2:50:37 PM metformin Recorded By: Nany Cross; 10/08/2016 2:50:37 PM Penicillins Recorded By: Nany Cross; 10/08/2016 2:50:37 PM Sulfa Drugs Recorded By: Nany Cross; 10/08/2016 2:50:37 PM Victoza SOPN Recorded By: Nany Cross; 10/08/2016 2:50:37 PM Current Meds Medication NameInstruction ALPRAZolam 0.5 MG Oral TabletTAKE ONE-HALF TABLET BY MOUTH TWICE DAILY NEEDED Baclofen 10 MG Oral TabletTAKE ONE TABLET BY MOUTH TWICE DAILY BD Insulin Syringe U/F 30G X 1/2" 1 MLUSE TO INJECT METHOTREXATE ONCE A WEEK Butrans 10 MCG/HR Transdermal Patch WeeklyAPPLY 1 PATCH TO CLEAN DRY SKIN EVERY WEEK (G89.4) Calcium Acetate (Phos Binder) 667 MG Oral CapsuleTAKE 1 CAPSULE BY MOUTH TWICE A DAY Clopidogrel Bisulfate 75 MG Oral Tablettake One tablet by mouth daily DULoxetine HCl - 60 MG Oral Capsule Delayed Release ParticlesTake 1 capsule by mouth twice daily. Fenofibrate Micronized 200 MG Oral CapsuleTake 1 capsule by mouth daily with breakfast. Folic Acid 1 MG Oral TabletTAKE 1 TABLET BY MOUTH EVERY DAY Furosemide 40 MG Oral TabletTAKE 1 TABLET BY MOUTH EVERY DAY HumaLOG KwikPen 200 UNIT/ML Subcutaneous Solution Pen-injectorINJECT 45 UNITS SUBCUTANEOUSLY 3 TIMES A DAY Isosorbide Dinitrate 30 MG Oral TabletTAKE ONE TABLET BY MOUTH THREE TIMES DAILY Loperamide HCl - 2 MG Oral Capsule Lyrica 75 MG Oral CapsuleTAKE ONE CAPSULE BY MOUTH TWICE DAILY MAGnesium-Oxide 400 (241.3 Mg) MG Oral TabletOne tablet by mouth twice daily Metoclopramide HCl - 5 MG Oral Tablet Metoprolol Tartrate 25 MG Oral TabletTAKE ONE TABLET TWICE DAILY. TAKE IN ADDITION TO 50 MG METOPROLOL FOR Metoprolol Tartrate 50 MG Oral Tablettake One AND one half tablet by mouth three times daily Nitroglycerin 0.4 MG Sublingual Tablet SublingualTAKE ONE TABLET UNDER THE TONGUE EVERY FIVE minutes UP TO THREE TIMES NovoLOG FlexPen 100 UNIT/ML Subcutaneous Solution Pen-injectorUSE DIRECTED Ondansetron HCl - 4 MG Oral TabletTAKE ONE TABLET BY MOUTH EVERY 8 HOURS NEEDED FOR NAUSEA AND vomiti Pantoprazole Sodium 40 MG Oral Tablet Delayed ReleaseTAKE ONE TABLET BY MOUTH DAILY Topiramate 25 MG Oral TabletTAKE 1 TABLET BY MOUTH AT BEDTIME traMADol HCl - 50 MG Oral TabletTAKE ONE TABLET BY MOUTH FOUR TIMES DAILY NEEDED traZODone HCl - 50 MG Oral TabletTAKE 1 TABLET BY MOUTH AT BEDTIME NEEDED INSOMNIA Ursodiol 300 MG Oral CapsuleTake 1 capsule by mouth twice daily. Venlafaxine HCl ER 150 MG Oral Capsule Extended Release 24 HourTAKE 1 CAPSULE BY MOUTH EVERY DAY FOR DEPRESSION Vitals Vital Signs Recorded: 70Dbi8569 09:55AM Heart Rate66 Mtmrxadq735 Vczpwqjno44 Height5 ft 7 in Wubcqn815 lb BMI Hrpdjyncbj51.54 BSA Calculated2 Tobacco Useb) No O2 Lkwdwqyfbm05 Physical Exam Constitutional General appearance: In no acute distress . Eyes Anicteric Sclerae . Ears, Nose, Mouth, and Throat Oropharynx without lesions. Neck Supple, no lymphadenopathy. Pulmonary Auscultation of lungs: Clear. Cardiovascular Auscultation of heart: RRR without murmur. Examination of extremities for edema: Normal. Abdomen Soft, non-tender. Bowel sounds normal. No hepatomegaly or splenomegaly. Prior ileostomy scar right lower quadrant healed. Current ileostomy in left lower quadrant with healthy-appearing stoma. Skin No specific lesions, no spider angiomata or palmar erythema. Psychiatric patient alert. judgement was appropriate. insight appropriate. 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 Fistulogram 04/21/2017 from outside facility.IMPRESSION: Right lower quadrant fistula was accessed with [...] lateral view deep to the fistula is artifact.Transcribed Using Voice RecognitionTranscribe Date/Time: Jul 06 2017 11:54ADictated by: GERMAINE RYAN MDThis examination was interpreted and the report reviewed and electronically signed by: GERMAINE RYAN MD on Jul 06 2017 2:13PM [id number] Normal [facility] GLUCOSE-POCTon 10-21-2016 Glucose mass conc 130 mg/dL High 74 - 99 [facility] Comment on above: Performed By: #### G KIM ####[facility] [id number] [place] [address] Glucose mass conc 188 mg/dL High 74 - 99 [facility] Comment on above: Performed By: #### G KIM ####[facility] [id number] [place] [address] Anti-Nuclear Antibodyon 08-08 YOLANDA Titer <1:40 Normal <1:40 [facility] Comment on above: Order Comment: Tomás bocanegra CT:Melissa Puente 10:30 vrb:TASNEEM Performed By: #### A NA ####[address] [address] Vital Signs Date Time Vital Sign Value Performing Clinician Facility 10-06-2024 11:02-0400 Body mass index (BMI) [Ratio] 32.73 kg/m2 Sherine Wheat MD Work Phone: [facility] 10-06-2024 11:02-0400 Body weight 94.8 kg Sherine Wheat MD Work Phone: [facility] 10-06-2024 11:02-0400 Diastolic blood pressure 67 mm[Hg] Sherine Wheat MD Work Phone: [facility] 10-06-2024 11:02-0400 Heart rate 75 /min Sherine Wheat MD Work Phone: [facility] 10-06-2024 11:02-0400 Respiratory rate 18 /min Sherine Wheat MD [facility] [facility] 10-06-2024 11:02-0400 SaO2% (BldA) [Mass fraction] 98 % Sherine Wheat MD Work Phone: [facility] 10-06-2024 11:02-0400 Systolic blood pressure 186 mm[Hg] Sherine Wheat MD Work Phone: [facility] 08-29-2023 13:41-0400 Body mass index (BMI) [Ratio] 33.25 kg/m2 Arnulfo Moomaw JACK SPOOLER TENDER.COMMERCIAL SALES SPECIALIST Work Phone: [facility] 08-29-2023 13:41-0400 Body temperature 98.01 [degF] Arnulfo Moomaw JACK SPOOLER TENDER.COMMERCIAL SALES SPECIALIST Work Phone: [facility] 08-29-2023 13:41-0400 Body weight 96.3 kg Arnulfo Moomaw JACK SPOOLER TENDER.COMMERCIAL SALES SPECIALIST Work Phone: [facility] 08-29-2023 13:41-0400 Diastolic blood pressure 78 mm[Hg] Arnulfo Moomaw JACK SPOOLER TENDER.COMMERCIAL SALES SPECIALIST Work Phone: [facility] 08-29-2023 13:41-0400 Heart rate 66 /min Arnulfo Moomaw JACK SPOOLER TENDER.COMMERCIAL SALES SPECIALIST Work Phone: [facility] 08-29-2023 13:41-0400 Respiratory rate 18 /min Arnulfo Moomaw JACK SPOOLER TENDER.COMMERCIAL SALES SPECIALIST Work Phone: [facility] 08-29-2023 13:41-0400 SaO2% (BldA) [Mass fraction] 96 % Arnulfo Dacosta JACK SPOOLER TENDER.COMMERCIAL SALES SPECIALIST Work Phone: [facility] 08-29-2023 13:41-0400 Systolic blood pressure 128 mm[Hg] Arnulfo Dacosta JACK SPOOLER TENDER.COMMERCIAL SALES SPECIALIST Work Phone: [facility] 12-20-2019 11:35-0400 BMI (Body Mass Index) 30.54 kg/m2 Brennan Duque [facility] 120 Work Phone: 12-20-2019 11:35-0400 Body Temperature 98.2 [degF] Brennan Duque [facility] 120 Work Phone: 12-20-2019 11:35-0400 Body weight 88.45 kg rBennan Duque [facility] 120 Work Phone: 12-20-2019 11:35-0400 BP Diastolic 70 mm[Hg] [facility] Work Phone: 12-20-2019 11:35-0400 BP Systolic 120 mm[Hg] [facility] Work Phone: 12-20-2019 11:35-0400 BSA (Body Surface Area) 2 m2 Brennan Duque [facility] 120 Work Phone: 12-20-2019 11:35-0400 Height 170.18 cm Brennan Duque [facility] 120 Work Phone: 11-30-2019 11:55-0400 BMI (Body Mass Index) 30.54 kg/m2 Brennan Duque [facility] 120 Work Phone: 11-30-2019 11:55-0400 Body weight 88.45 kg [facility] Work Phone: 11-30-2019 11:55-0400 BP Diastolic 60 mm[Hg] Brennan Duque [facility] Work Phone: 11-30-2019 11:55-0400 BP Systolic 122 mm[Hg] Brennan Duque [facility] Work Phone: 11-30-2019 11:55-0400 BSA (Body Surface Area) 2 m2 Brennan Duque [facility] 120 Work Phone: 11-30-2019 11:55-0400 Height 170.18 cm Brennan Duque [facility] 120 Work Phone: 11-30-2019 11:55-0400 Pulse (Heart Rate) 66 /min Brennan Duque [facility] 120 Work Phone: 11-30-2019 11:55-0400 Pulse Oximetry 96 % Brennan Duque [facility] 120 Work Phone: Encounters Encounter Date Encounter Type Care Provider Facility Start: 01-25-2025 ambulatory Efevelioongbe Arelye [facility] Start: 01-17-2025 ambulatory Devi Atanaspradeep Facili ty:[facility] Start: 01-15-2025 ambulatory Devi Van Facili ty:[facility] Start: 01-11-2025 End: 01-11-2025 ambulatory Efcharliebe Arelye Facility:[facility] Start: 01-11-2025 End: 01-11-2025 ambulatory Efroseanne Mcgeee Facility:[facility] Start: 01-10-2025 End: 01-10-2025 ambulatory Devi Van Facility:[facility] Start: 01-08-2025 ambulatory Herbert Marks Facilit y:[facility] Start: 01-08-2025 End: 01-08-2025 ambulatory Devi Weeksnasov Facility:[facility] Start: 01-08-2025 End: 01-08-2025 ambulatory Efewongbe Nealghe Facility:[facility] Start: 01-03-2025 ambulatory Devi Weeksnaspradeep Facili ty:[facility] Start: 01-02-2025 End: 01-02-2025 [facility] Start: 01-02-2025 ambulatory Bobbe Arelye Facili ty:[facility] Start: 01-01-2025 End: 01-01-2025 ambulatory Devi Atanasov Facility:[facility] Start: 12-27-2024 ambulatory Devi Atanasov Facili ty:[facility] Start: 12-25-2024 End: 12-25-2024 ambulatory Devi Mickynasov Facility:[facility] Start: 12-22-2024 End: 12-22-2024 ambulatory Tiffany Marah Facility[facility] Start: 12-20-2024 ambulatory Devi Atanasov Facili ty:[facility] Start: 12-18-2024 End: 12-18-2024 ambulatory Devi Atanasov Facility:[facility] Start: 12-18-2024 End: 12-18-2024 ambulatory Herbert Marks Facility:[facility] Start: 12-13-2024 End: 12-13-2024 ambulatory Suellen Sridevi [facility] Start: 12-08-2024 End: 12-08-2024 ambulatory Tiffany Marah [facility] Start: 12-06-2024 End: 12-06-2024 ambulatory Devi Atanasov Facility:[facility] Start: 12-04-2024 End: 12-05-2024 ambulatory Herbert Badur Facility:[facility] Start: 11-29-2024 End: 11-29-2024 ambulatory Devi Atanasov Facility:[facility] Start: 11-27-2024 End: 11-27-2024 ambulatory Devi Atanasov Facility:[facility] Start: 11-24-2024 End: 11-24-2024 ambulatory Devi Atanasov [facility] Start: 11-22-2024 End: 11-23-2024 ambulatory Aj Andino Facility:[facility] Start: 11-20-2024 ambulatory Devi Atanasov Facili ty:[facility] Start: 11-15-2024 End: 11-15-2024 ambulatory Dvei Atanasov Facility:[facility] Start: 11-13-2024 End: 11-13-2024 ambulatory Devi Atanasov Facility:[facility] Start: 11-10-2024 End: 11-10-2024 ambulatory Tiffany Chenck [facility] Start: 11-08-2024 End: 11-08-2024 ambulatory Devi Weeksnasov Facility:[facility] Start: 11-01-2024 End: 11-01-2024 ambulatory Devi Mickynasov Facility:[facility] Start: 10-31-2024 End: 10-31-2024 ambulatory Michael Isckarus [facility] Start: 10-30-2024 End: 10-30-2024 ambulatory Henri Prakashruso [facility] Start: 10-30-2024 End: 10-30-2024 ambulatory Efewongbe Oleestuardoe Facility:[facility] Start: 10-30-2024 End: 10-30-2024 ambulatory Devi Weeksnasov Facility:[facility] Start: 10-27-2024 End: 10-27-2024 ambulatory Tiffany Ramosmaryduy [facility] Start: 10-27-2024 End: 10-27-2024 ambulatory Aj Andino Facility:[facility] Start: 10-25-2024 End: 10-26-2024 ambulatory Michael Isckarus Facility:[facility] Start: 10-23-2024 End: 10-23-2024 ambulatory Devi Weeksnasov Facility:[facility] Start: 10-23-2024 End: 10-23-2024 ambulatory Claudia Rico Facility:[facility] Start: 10-19-2024 End: 10-19-2024 ambulatory Devi Mickynasov Facility:[facility] Start: 10-16-2024 End: 10-16-2024 ambulatory Devi Atanasov Facility:[facility] Start: 10-12-2024 End: 10-12-2024 ambulatory Efewongbe Oleestuardoe [facility] Start: 10-11-2024 ambulatory Devi Van Facili ty:[facility] Start: 10-09-2024 End: 10-09-2024 Orders Only Sherine Wheat MD Work Phone: Colorectal Surgery Comment on above: Bleeding from colost marcie stoma (HCC) (Primary Dx) Start: 10-06-2024 End: 10-06-2024 Emergency department patient visit NIKI BENÍTEZ Facility:[facility] Start: 10-06-2024 End: 10-06-2024 Patient encounter procedure Sherine Wheat MD Work Phone: Colorectal Surgery Comment on above: Ileostomy in place ( HCC); Crohn's colitis, with fistula (HCC); Morbid (severe) obesity due to excess calories (HCC) Start: 10-06-2024 End: 10-06-2024 ambulatory SHERINE WHEAT Facility:[facility] Start: 10-04-2024 End: 10-04-2024 ambulatory Devi Van Facility:[facility] Start: 10-03-2024 End: 10-03-2024 ambulatory Herbert Marks Facility:[facility] Start: 10-02-2024 ambulatory Devi Van Facili ty:[facility] Start: 09-29-2024 End: 09-29-2024 ambulatory Debra Benavides [facility] Start: 09-28-2024 End: 09-28-2024 ambulatory Tiffany Crystal [facility] Start: 09-27-2024 End: 09-27-2024 [facility] Start: 09-26-2024 End: 09-26-2024 ambulatory Fish Menon Facility:[facility] Start: 09-25-2024 End: 09-25-2024 ambulatory Devi Weeksnaspradeep Facility:[facility] Start: 09-21-2024 End: 09-21-2024 Emergency department patient visit Burton Chavez Facility:[facility] Start: 09-20-2024 End: 09-20-2024 [facility]ulatory [facility] Start: 09-18-2024 End: 09-18-2024 ambulatory Devi Van Facility:[facility] Start: 09-14-2024 End: 09-14-2024 ambulatory Nereyda Hubbard [facility] Start: 09-14-2024 End: 09-14-2024 ambulatory Tiffany Crystal [facility] Start: 09-13-2024 End: 09-13-2024 ambulatory Devi Van Facility:[facility] Start: 09-12-2024 End: 09-12-2024 ambulatory Suellen Laureano [facility] Start: 09-11-2024 End: 09-11-2024 ambulatory Devi Van Facility:[facility] Start: 09-07-2024 End: 09-07-2024 ambulatory Jade Castaneda [facility] Start: 09-06-2024 ambulatory Devi Van Facili ty:[facility] Start: 09-05-2024 End: 09-05-2024 ambulatory Herbert Naylorchris [facility] Start: 09-04-2024 End: 09-04-2024 ambulatory Devi Weeksnaspradeep Facility:[facility] Start: 08-31-2024 ambulatory Tiffany Rodney y:[facility] Start: 08-30-2024 End: 08-30-2024 ambulatory Devi Weeksnaspradeep Facility:[facility] Start: 08-28-2024 End: 08-28-2024 ambulatory Devi Van Facility:[facility] Start: 08-25-2024 End: 08-25-2024 ambulatory Jade Castaneda [facility] Start: 08-23-2024 End: 08-23-2024 ambulatory Deviligia Van Facility:[facility] Start: 08-21-2024 End: 08-21-2024 ambulatory Devi Van Facility:[facility] Start: 08-18-2024 ambulatory Jennifer Ortega [facility] Start: 08-18-2024 End: 08-18-2024 ambulatory Jade Castaneda [facility] Start: 08-17-2024 End: 08-18-2024 ambulatory Jennifer Ortega Facility:[facility] Start: 08-16-2024 End: 08-16-2024 ambulatory Devi Weeksnaspradeep Facility:[facility] Start: 08-14-2024 Encounter for other preprocedural examination Shiva Spencer [facility] Start: 08-14-2024 End: 08-14-2024 ambulatory Devi Weeksnaspradeep Facility:[facility] Start: 08-11-2024 End: 08-11-2024 ambulatory Jade Castaneda [facility] Start: 08-09-2024 End: 08-09-2024 ambulatory Royce JONES [facility] Start: 08-09-2024 End: 08-09-2024 ambulatory Devi Van Facility:[facility] Start: 08-08-2024 End: 08-08-2024 ambulatory Jennifer Ortega [facility] Start: 08-07-2024 End: 08-07-2024 ambulatory Devi Van Facility:[facility] Start: 08-03-2024 End: 08-03-2024 ambulatory Herbert Marks Facility:[facility] Start: 08-03-2024 End: 08-03-2024 ambulatory Tiffany Crystal [facility] Start: 08-02-2024 End: 08-02-2024 ambulatory Devi Van Facility:[facility] Start: 07-28-2024 End: 07-28-2024 ambulatory Jade Castaneda [facility] Start: 07-25-2024 ambulatory Shiva Spencer [facility] Start: 07-25-2024 End: 07-27-2024 Evaluation and management of inpatient Shiva Spencer Facility:[facility] Start: 07-25-2024 ambulatory Shiva Spencer [facility] Start: 07-22-2024 End: 07-22-2024 ambulatory Jade Castaneda Facility:[facility] Start: 07-20-2024 ambulatory Tiffany Crystal Facilit y[facility] Start: 07-19-2024 End: 07-19-2024 ambulatory Devi Van Facility:[facility] Start: 07-19-2024 End: 07-19-2024 ambulatory Vikas Hill Facility[facility] Start: 07-17-2024 ambulatory Devi Van Facili ty:[facility] Start: 07-13-2024 End: 07-13-2024 ambulatory Kareenroseanne Arelyshanelle [facility] Start: 07-12-2024 ambulatory Devi Van Facili ty:[facility] Start: 07-10-2024 End: 07-10-2024 ambulatory Devi Van Facility:[facility] Start: 07-06-2024 End: 07-06-2024 ambulatory Tiffany Crystal [facility] Start: 07-05-2024 End: 07-05-2024 ambulatory Devi Van Facility:[facility] Start: 07-04-2024 End: 07-04-2024 ambulatory Herbertabundio Marks Facility:[facility] Start: 07-03-2024 End: 07-03-2024 ambulatory Devi Atanaspradeep Facility:[facility] Start: 06-30-2024 End: 06-30-2024 Emergency department patient visit Mala Mcgrath Facility:[facility] Start: 06-28-2024 End: 06-28-2024 ambulatory Devi Mickynasov Facility:[facility] Start: 06-26-2024 End: 06-26-2024 ambulatory Devi Mickynaspradeep Facility:[facility] Start: 06-22-2024 End: 06-22-2024 ambulatory Shiva Spencer [facility] Start: 06-21-2024 End: 06-21-2024 ambulatory Devi Mickynaspradeep Facility:[facility] Start: 06-20-2024 End: 06-20-2024 ambulatory Suellen Laureano [facility] Start: 06-19-2024 End: 06-19-2024 ambulatory Jade Castaneda [facility] Start: 06-15-2024 End: 06-15-2024 ambulatory Nereyda Hubbard Facility[facility] Start: 06-14-2024 End: 06-14-2024 ambulatory Devi Mickynaspradeep Facility:[facility] Start: 06-12-2024 End: 06-12-2024 ambulatory Devi Mickynaspradeep Facility:[facility] Start: 06-08-2024 End: 06-08-2024 ambulatory Tiffany Crystal [facility] Start: 06-05-2024 End: 06-05-2024 ambulatory Henri Camacho [facility] Start: 06-05-2024 End: 06-05-2024 ambulatory Devi Van Facility:[facility] Start: 06-03-2024 End: 06-03-2024 ambulatory Aj Andino Facility:[facility] Start: 06-01-2024 End: 06-01-2024 ambulatory Herbert Marks [facility] Start: 05-31-2024 End: 05-31-2024 ambulatory Devi Weeksnaspradeep Facility:[facility] Start: 05-29-2024 End: 05-29-2024 ambulatory Devi Weeksnaspradeep Facility:[facility] Start: 05-25-2024 End: 05-25-2024 ambulatory Tiffany Crystal [facility] Start: 05-24-2024 Encounter for antibo dy response examination Mala Mcgrath [facility] Start: 05-24-2024 End: 05-24-2024 ambulatory Devi Weeksnaspradeep Facility:[facility] Start: 05-23-2024 ambulatory Shiva Spencer [facility] Start: 05-22-2024 End: 05-23-2024 ambulatory Shiva Spencer Facility:[facility] Start: 05-15-2024 End: 05-15-2024 ambulatory Devi Van Facility:[facility] Start: 05-10-2024 End: 05-10-2024 ambulatory Devi Van Facility:[facility] Start: 05-09-2024 End: 05-09-2024 ambulatory Suellen Laureano [facility] Start: 05-08-2024 End: 05-08-2024 ambulatory Devi Van Facility:[facility] Start: 05-04-2024 End: 05-04-2024 ambulatory Tiffany Crystal [facility] Start: 05-03-2024 End: 05-03-2024 ambulatory Devi Mickynaspradeep Facility:[facility] Start: 05-01-2024 End: 05-01-2024 ambulatory Devi Mickynaspradeep Facility:[facility] Start: 04-26-2024 End: 04-26-2024 ambulatory Devi Van Facility:[facility] Start: 04-24-2024 End: 04-24-2024 ambulatory Devi Weeksnaspradeep Facility:[facility] Start: 04-21-2024 End: 04-21-2024 ambulatory Devi Van Facility:[facility] Start: 04-20-2024 End: 04-20-2024 ambulatory Tiffany Crystal [facility] Start: 04-17-2024 End: 04-17-2024 ambulatory Devi Weeksnaspradeep Facility:[facility] Start: 04-14-2024 End: 04-14-2024 ambulatory Henri Camacho [facility] Start: 04-12-2024 End: 04-12-2024 ambulatory Devi Weeksnasov Facility:[facility] Start: 04-11-2024 End: 04-11-2024 ambulatory Herbert Duganmiller [facility] Start: 04-10-2024 End: 04-10-2024 ambulatory Devi Weeksyohana Facility:[facility] Start: 04-06-2024 End: 04-06-2024 ambulatory Tiffany Crystal [facility] Start: 04-05-2024 End: 04-05-2024 ambulatory Devi Rehan Facility:[facility] Start: 04-03-2024 End: 04-03-2024 ambulatory Devi Weeksyohana Facility:[facility] Start: 03-29-2024 End: 03-29-2024 ambulatory Efewsethbe Arelye [facility] Start: 03-28-2024 End: 03-28-2024 ambulatory Suellenmonik Laureano [facility] Start: 03-24-2024 ambulatory Castillo Barrington [facility] Start: 03-24-2024 End: 03-26-2024 Evaluation and management of inpatient Castillo Barrington Facility:[facility] Start: 03-16-2024 End: 03-16-2024 ambulatory Nereyda Hubbard [facility] Start: 03-10-2024 ambulatory Juan Carlos Barahona ility[facility] Start: 03-10-2024 End: 03-13-2024 Evaluation and management of inpatient Shiva Chandler Facility:[facility] Start: 03-07-2024 End: 03-07-2024 ambulatory Herbert Duganmiller [facility] Start: 03-03-2024 End: 03-03-2024 ambulatory Tiffany Marah [facility] Start: 02-24-2024 End: 02-24-2024 ambulatory Zunildayani Mcgrath [facility] Start: 02-24-2024 End: 02-24-2024 ambulatory Serenity JONES Facility:[facility] Start: 02-21-2024 End: 02-21-2024 ambulatory Efewsethbe Arelye [facility] Start: 02-17-2024 End: 02-18-2024 ambulatory Audrey Vail Facility:[facility] Start: 02-15-2024 End: 02-15-2024 ambulatory Tiffany Crystal [facility] Start: 02-01-2024 End: 02-01-2024 ambulatory Suellen Laureano [facility] Start: 01-31-2024 End: 02-01-2024 ambulatory Tonia Paris [employer]ICAL PL[employer]PER[employer] Facility: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 Start: 01-17-2024 End: 01-17-2024 ambulatory Michael Barajas Facility:[facility] Start: 08-29-2023 End: 08-29-2023 Patient encounter procedure Arnulfo Dacosta APRN.CNP Work Phone: [facility] Comment on above: Great toe pain, left (Primary Dx) Start: 05-28-2023 End: 05-28-2023 Patient encounter procedure Royce Vaz Work Phone: Podiatry Comment on above: Onychomycosis (Prima ry Dx); Onychodystrophy; Pain in toe of left foot; Pain in toe of right foot; Diabetic polyneuropathy associated with type 2 diabetes mellitus (HCC); Diminished pulses in lower extremity Start: 10-23-2020 Rx Renewal Mala rodas Work Phone: [facility] [facility] Work Phone: Start: 12-20-2019 Patient encounter procedure Brennan Duque [facility] [facility] Work Phone: Start: 11-30-2019 Patient encounter procedure Brennan Duque [facility] [facility] Work Phone: Start: 07-06-[address] [facility] Start: 10-21-2016 End: 10-21-2016 Ambulatory Huma Ocasio Facility[facility] Start: 10-08-2016 Ambulatory Mena Brown Fac ility:[facility] Zena Bonilla Start: 09-03-2016 Ambulatory Alireza Puente [facility] Procedures Date Procedure Procedure Detail Performing Clinician Start: 10-06-2024 Antibody screen NIKI BENÍTEZ Comment on above: Order Comment: Specimen Type: BLOOD SPEC IMEN Ordering Facility: [facility] Address: [address] [id number] Performed By: #### 1 [id number], [id number] #### [facility] CLIA [id number] [address] [place] Start: 11-30-2019 Alpha-fetoprotein serum Brennan Duque Start: [...] Start: 10-21-2016 Anesth, upper gi visualize Huma Arredondo ng Start: 10-21-2016 Esophagogastroduodenoscopy us scope w/adj strxrs Huma Ocasio section Brennan Duque Cholecystectomy Brennan Contreraselizabeth History of CABG Brennan Duque History of Cardiac C ath Procedure Outcome: Brennan Duque History of Ileostomy Brennan christensen Plan of Treatment Date Care Activity Detail Author Start: 05-24-2034 Urine microalbumin profile DTaP,Tdap,Td Vaccine (3 - Td or Tdap) [facility] Start: 10-06-2025 Complete blood count Hemoglobin/Jose tocrit [facility] Start: 08-01-2026 Creatinine measurement Serum Creatin ine [facility] Start: 01-16-2025 Pneumococcal vaccination Pneum ococcal Vaccine (4 of 4 - PPSV23 or PCV20) [facility] Start: 01-16-2025 Pneumococcal Vaccine : 50+ (4 of 4 - PCV20 or PCV21) Pneumococcal Vaccine: 50+ (4 of 4 - PCV20 or PCV21) [facility] Start: 01-16-2025 Pneumococcal Vaccine : 65+ (4 of 4 - PPSV23 or PCV20) Pneumococcal Vaccine: 65+ (4 of 4 - PPSV23 or PCV20) [facility] Start: 12-27-2024 Urine microalbumin profile DTaP,Tdap,Td Vaccine (2 - Td or Tdap) [facility] Start: 10-30-2024 End: 10-30-2024 Patient encounter procedure 10/30/2024 9:45 AM EDT Office Visit Colorectal Surgery [address] [address] Naz[address] Silverman, [address] [place] [address] h/o ulcerative colitis, s/p total proctocolectomy Colorectal Surgery Comment on above: h/o ulcerative colit is, s/p total proctocolectomy Start: 08-28-2024 BP Controlled (<130/80) BP Controlle d (<130/80) [facility] Start: 03-08-2024 Advance Directive Discussion Advance Directive Discussion [facility] Start: 03-08-2024 Medicare Advantage A nnual Wellness Visit Medicare Advantage Annual Wellness Visit [facility] Start: 08-30-2023 End: 09-27-2024 XR Toes - left 3 Views XR TOE AP/LAT/OBL LEFT Radiology STAT Great toe pain, left Expected: 08/30/2023, Expires: 09/27/2024 [facility] Work Phone: Comment on above: Expected: 08/30/2023 , Expires: 09/27/2024 Start: 07-17-2023 Advance Directive Discussion Advance Directive Discussion [facility] Start: 07-17-2023 Screening for osteoporosis Bone Density Screening [facility] Start: 12-25-2020 Complete blood count Hemoglobin/Jose tocrit [facility] Start: 12-25-2020 Creatinine measurement Serum Creatin ine [facility] Start: 12-16-2020 FUV, Provider: Brennan Duque, Status: Jered, Time: 10:00 AM FUV, Provider: Brennan Duque, Status: Jered, Time: 10:00 AM [facility] [facility] Work Phone: Start: 12-13-2020 Diabetic foot examination Diabetic F oot Exam [facility] Start: 10-11-2020 Covid-19 Vaccine (3 - Pfizer risk series) Covid-19 Vaccine (3 - Pfizer risk series) [facility] Start: 2018 Hepatitis B Vaccine (1 of 3 - Risk 3-dose series) Hepatitis B Vaccine (1 of 3 - Risk 3-dose series) [facility] Start: 2018 RSV Vaccine (1 - 1-d ose 60+ series) RSV Vaccine (1 - 1-dose 60+ series) [facility] Start: 2018 RSV Vaccine (1 - Ris k 60-74 years 1-dose series) RSV Vaccine (1 - Risk 60-74 years 1-dose series) [facility] Start: 11-19-2017 Hemoglobin A1c measurement HbA1C [facility] Start: 06-23-2017 Hepatitis B screening Urine Al bumin:Creatinine Ratio [facility] Start: 06-23-2017 Hepatitis B surface antibody level LDL Cholesterol [facility] Start: 09-24-2016 Screening for malign ant neoplasm of breast Mammogram Screening [facility] Start: 08-28-2016 Glaucoma screening Dilated Retinal E xam [facility] Start: 07-17-2003 Screening for malign ant neoplasm of colon [facility] Start: 1988 Zoledronic acid therapy Alpha- 1 Antitrypsin Deficiency Screening [facility] Start: 1977 Hepatitis A Vaccine (1 of 2 - Risk 2-dose series) Hepatitis A Vaccine (1 of 2 - Risk 2-dose series) [facility] Start: 1977 Shingrix Vaccine (1 of 2) Dia grix Vaccine (1 of 2) [facility] Start: 1976 Annual PCP Team Butt Sawyer irma Disease Visit Annual PCP Team Chronic Disease Visit [facility] Start: 1976 BP Controlled (<130/80) BP Controlle d (<130/80) [facility] Start: 1976 HIV screening HIV Screening [facility] Start: 1976 MMR Vaccine (1 of 2 - Risk 2-dose series) MMR Vaccine (1 of 2 - Risk 2-dose series) [facility] Start: 1968 Meningococcal B Vacc ine: Consider Based On Risk (1 of 4 - Increased Risk) Meningococcal B Vaccine: Consider Based On Risk (1 of 4 - Increased Risk) [facility] End: 05-27-2024 US.doppler Extremity arteries - bilateral for physiologic artery study [facility] Vascular Lab Routine Diabetic polyneuropathy associated with type 2 diabetes mellitus (HCC) Diminished pulses in lower extremity 1 Occurrences starting 05/28/2023 until 05/27/2024 [facility] Work Phone: Comment on above: 1 Occurrences starti ng 05/28/2023 until [facility] Immunization Date Immunization Notes Care Provider Alfred henry 03-24-2016 pneumococcal conjuga te vaccine, 13 valent [employer] Work Phone: [facility] 12-27-2014 tetanus toxoid, redu elisa diphtheria toxoid, and acellular pertussis vaccine, adsorbed [employer] Work Phone: [facility] 12-25-2014 influenza, seasonal, injectable [employer] Work Phone: [facility] 12-20-2013 influenza, injectabl e, quadrivalent, preservative free [employer] Work Phone: [facility] Work Phone: 07-09-2013 pneumococcal polysaccharide vaccine, 23 valent [employer] Work Phone: [facility] Work Phone: Payers Date Payer Category Payer Unknown [id number] 09-10-2022 Medicaid [id number] 09-10-2022 Medicare [facility] [employer] MEDIC[facility] [id number] 09/10/2022-Present [phone] [address] [place] [address] Medicare [id number] 09-10-2022 Medicare (Managed Care) [facility] MEDICARE [id number] 09-10-2022 Medicare [id number] 10-06-2021 Self-pay 10-06-2021 Unknown [id number] 07-06-2018 Medicare [id number] Unknown [id number] Unknown Unknown [id number] 2.16.840.1.670843.3.579.2. 462 Unknown [id number] 2.16.840.1.651510.3.579.2. 462 Unknown [id number] 2.16.840.1.650569.3.579.2. 462 Unknown [id number] 2.16.840.1.993540.3.579.2. 462 Unknown [id number] 2.16.840.1.191912.3.579.2. 462 Unknown [id number] 2.16.840.1.287051.3.579.2. 462 Unknown [id number] 2.16.840.1.670468.3.579.2. 462 Unknown [id number] 2.16.840.1.457368.3.579.2. 462 Unknown [id number] 2.16.840.1.417501.3.579.2. 462 Unknown [id number] 2.16.840.1.366782.3.579.2. 462 Unknown [id number] 2.16.840.1.912447.3.579.2. 462 Unknown [id number] 2.16.840.1.556047.3.579.2. 462 Unknown [id number] 2.16.840.1.488597.3.579.2. 462 Unknown [id number] 2.16.840.1.974874.3.579.2. 462 Unknown [id number] 2.16.840.1.451076.3.579.2. 462 Unknown [id number] 2.16.840.1.866477.3.579.2. 462 Unknown [id number] 2.16.840.1.189435.3.579.2. 462 Unknown [id number] 2.840.1.969653.3.579.2. 462 Unknown [id number] 2.16.840.1.827016.3.579.2. 462 Unknown [id number] 2.16.840.1.644244.3.579.2. 462 Unknown [id number] 2.16.840.1.687873.3.579.2. 462 Unknown [id number] 2.16.840.1.993672.3.579.2. 462 Unknown [id number] 2.16.840.1.748017.3.579.2. 462 Unknown [id number] 2.16.840.1.292502.3.579.2. 462 Unknown [id number] 2.16.840.1.211129.3.579.2. 462 Unknown [id number] 2.16.840.1.482937.3.579.2. 462 Unknown [id number] 2.16.840.1.274917.3.579.2. 462 Unknown [id number] 2.16.840.1.629076.3.579.2. 462 Unknown [id number] 2.16.840.1.873995.3.579.2. 462 Unknown [id number] 2.16840.1.638551.3.579.2. 462 Unknown [id number] 2.16840.1.574134.3.579.2. 462 Unknown [id number] 2.16840.1.795585.3.579.2. 462 Unknown [id number] 2.16840.1.086719.3.579.2. 462 Unknown [id number] 2.840.1.094351.3.579.2. 462 Unknown [id number] 2.840.1.310554.3.579.2. 462 Unknown [id number] 2.840.1.763309.3.579.2. 462 Unknown [id number] 2.840.1.232873.3.579.2. 462 Unknown [id number] 2.840.1.981629.3.579.2. 462 Unknown [id number] 2.840.1.990999.3.579.2. 462 Unknown [id number] 2.840.1.145615.3.579.2. 462 Unknown [id number] 2.840.1.181961.3.579.2. 462 Unknown [id number] 2.840.1.436441.3.579.2. 462 Unknown [id number] 2.840.1.627621.3.579.2. 462 Unknown [id number] 2.840.1.742430.3.579.2. 462 Unknown [id number] 2.840.1.152688.3.579.2. 462 Unknown [id number] 2.840.1.737948.3.579.2. 462 Unknown [id number] 2.16.840.1.614767.3.579.2. 462 Unknown [id number] 2.16.840.1.997798.3.579.2. 462 Unknown [id number] 2.16.840.1.148960.3.579.2. 462 Unknown [id number] 2.16.840.1.390416.3.579.2. 462 Unknown [id number] 2.16.840.1.281039.3.579.2. 462 Unknown [id number] 2.16.840.1.942096.3.579.2. 462 Unknown [id number] 2.16.840.1.152659.3.579.2. 462 Unknown [id number] 2.16.840.1.943661.3.579.2. 462 Unknown [id number] 2.16.840.1.489999.3.579.2. 462 Unknown [id number] 2.16.840.1.900699.3.579.2. 462 Unknown [id number] 2.16.840.1.143889.3.579.2. 462 Unknown [id number] 2.16.840.1.924809.3.579.2. 462 Unknown [id number] 2.16.840.1.791411.3.579.2. 462 Unknown [id number] 2.16.840.1.993255.3.579.2. 462 Unknown [id number] 2.16.840.1.599371.3.579.2. 462 Unknown [id number] 2.16.840.1.818293.3.579.2. 462 Unknown [id number] 2.16.840.1.034090.3.579.2. 462 Unknown [id number] 2.16.840.1.833521.3.579.2. 462 Unknown [id number] 2.16.840.1.615256.3.579.2. 462 Unknown [id number] 2.16.840.1.637208.3.579.2. 462 Unknown [id number] 2.16.840.1.171472.3.579.2. 462 Unknown [id number] 2.16.840.1.668166.3.579.2. 462 Unknown [id number] 2.16840.1.050506.3.579.2. 462 Unknown [id number] 2.16.840.1.474761.3.579.2. 462 Unknown [id number] 2.840.1.700673.3.579.2. 462 Unknown [id number] 2.840.1.047176.3.579.2. 462 Unknown [id number] 2.840.1.117270.3.579.2. 462 Unknown [id number] 2.840.1.654278.3.579.2. 462 Unknown [id number] 2.840.1.071238.3.579.2. 462 Unknown [id number] 2.840.1.075686.3.579.2. 462 Unknown [id number] 2.840.1.980874.3.579.2. 462 Unknown [id number] 2.840.1.089746.3.579.2. 462 Unknown [id number] 2.840.1.422585.3.579.2. 462 Unknown [id number] 2.840.1.547731.3.579.2. 462 Unknown [id number] 2.840.1.145902.3.579.2. 462 Unknown [id number] 2.840.1.200068.3.579.2. 462 Unknown [id number] 2.840.1.727105.3.579.2. 462 Unknown [id number] 2.16.840.1.341107.3.579.2. 462 Unknown [id number] 2.16.840.1.739505.3.579.2. 462 Unknown [id number] 2.16.840.1.394842.3.579.2. 462 Unknown [id number] 2.16.840.1.769509.3.579.2. 462 Unknown [id number] 2.840.1.485843.3.579.2. 462 Unknown [id number] 2.840.1.148381.3.579.2. 462 Unknown [id number] 2.840.1.576288.3.579.2. 462 Unknown [id number] 2.840.1.069630.3.579.2. 462 Unknown [id number] 2.840.1.907122.3.579.2. 462 Unknown [id number] 2.840.1.412142.3.579.2. 462 Unknown [id number] 2.840.1.195694.3.579.2. 462 Unknown [id number] 2.840.1.732105.3.579.2. 462 Unknown [id number] 2.840.1.436620.3.579.2. 462 Unknown [id number] 2.840.1.086541.3.579.2. 462 Unknown [id number] 2.840.1.931324.3.579.2. 462 Unknown [id number] 2.840.1.759794.3.579.2. 462 Unknown [id number] 2.840.1.184738.3.579.2. 462 Unknown [id number] 2.840.1.861122.3.579.2. 462 Unknown [id number] 2.840.1.265422.3.579.2. 462 Unknown [id number] 2.16.840.1.461638.3.579.2. 462 Unknown [id number] 2.16.840.1.735139.3.579.2. 462 Unknown [id number] 2.16.840.1.928995.3.579.2. 462 Unknown [id number] 2.16.840.1.226328.3.579.2. 462 Unknown 03400004 2.16.840.1.737300.3.579.2. 462 Unknown 09441399 2.840.1.784409.3.579.2. 462 Unknown [id number] 2.840.1.995078.3.579.2. 462 Unknown [id number] 2.840.1.605146.3.579.2. 462 Unknown [id number] 2.840.1.635159.3.579.2. 462 Unknown [id number] 2.840.1.848440.3.579.2. 462 Unknown 07989263 2.840.1.573592.3.579.2. 462 Unknown [id number] 2.840.1.521966.3.579.2. 462 Unknown [id number] 2.840.1.103823.3.579.2. 462 Unknown [id number] 2.840.1.398397.3.579.2. 462 Unknown [id number] 2.16.840.1.478523.3.579.2. 462 Unknown [id number] 2.16.840.1.927865.3.579.2. 462 Unknown [id number] 2.16840.1.985257.3.579.2. 462 Unknown [id number] 2.16.840.1.892879.3.579.2. 462 Unknown [id number] 2.16.840.1.703789.3.579.2. 462 Unknown [id number] 2.16.840.1.294446.3.579.2. 462 Unknown [id number] 2.16.840.1.813621.3.579.2. 462 Unknown [id number] 2.16.840.1.260901.3.579.2. 462 Unknown [id number] 2.16.840.1.655911.3.579.2. 462 Unknown [id number] 2.16.840.1.176097.3.579.2. 462 Unknown [id number] 2.16.840.1.324492.3.579.2. 462 Unknown 69042036 2.16.840.1.084050.3.579.2. 462 Unknown [id number] 2.16.840.1.084301.3.579.2. 462 Unknown [id number] 2.16.840.1.902934.3.579.2. 462 Unknown [id number] 2.16.840.1.994398.3.579.2. 462 Unknown [id number] 2.16.840.1.317572.3.579.2. 462 Unknown [id number] 2.16.840.1.318140.3.579.2. 462 Unknown [id number] 2.16.840.1.792579.3.579.2. 462 Unknown [id number] 2.16.840.1.875631.3.579.2. 462 Unknown [id number] 2.16.840.1.348209.3.579.2. 462 Unknown [id number] 2.16.840.1.547601.3.579.2. 462 Unknown [id number] 2.16.840.1.312044.3.579.2. 462 Unknown [id number] 2.16.840.1.939185.3.579.2. 462 Unknown [id number] 2.16.840.1.255490.3.579.2. 462 Unknown [id number] 2.16.840.1.934353.3.579.2. 462 Unknown [id number] 2.16.840.1.159661.3.579.2. 462 Unknown 10992353 2.16.840.1.321683.3.579.2. 462 Unknown [id number] 2.16.840.1.356122.3.579.2. 462 Unknown [id number] 2.16.840.1.456079.3.579.2. 462 Unknown [id number] 2.16.840.1.086240.3.579.2. 462 Unknown 18092652 2.16.840.1.091385.3.579.2. 462 Unknown [id number] 2.16.840.1.983977.3.579.2. 462 Unknown [id number] 2.16.840.1.647260.3.579.2. 462 Unknown [id number] 2.16.840.1.512905.3.579.2. 462 Unknown [id number] 2.16.840.1.398749.3.579.2. 462 Unknown [id number] 2.16.840.1.089033.3.579.2. 462 Unknown [id number] 2.16.840.1.065915.3.579.2. 462 Unknown [id number] 2.16.840.1.581417.3.579.2. 462 Unknown [id number] 2.16.840.1.569644.3.579.2. 462 Unknown [id number] 2.16.840.1.492420.3.579.2. 462 Unknown [id number] 2.16.840.1.841867.3.579.2. 462 Unknown [id number] 2.16.840.1.812423.3.579.2. 462 Unknown [id number] 2.16.840.1.032208.3.579.2. 462 Unknown [id number] 2.16.840.1.712574.3.579.2. 462 Unknown [id number] 2.16.840.1.890057.3.579.2. 462 Unknown [id number] 2.16.840.1.476409.3.579.2. 462 Unknown [id number] 2.16.840.1.809974.3.579.2. 462 Unknown [id number] 2.16.840.1.323086.3.579.2. 462 Unknown [id number] 2.16.840.1.702611.3.579.2. 462 Unknown [id number] 2.16.840.1.341080.3.579.2. 462 Unknown [id number] 2.16.840.1.750348.3.579.2. 462 Unknown [id number] 2.16.840.1.438700.3.579.2. 462 Unknown [id number] 2.16.840.1.881670.3.579.2. 462 Unknown [id number] 2.16.840.1.750563.3.579.2. 462 Unknown [id number] 2.16.840.1.300402.3.579.2. 462 Unknown [id number] 2.16.840.1.706293.3.579.2. 462 Unknown [id number] 2.16.840.1.315975.3.579.2. 462 Unknown [id number] 2.16.840.1.831208.3.579.2. 462 Unknown [id number] 2.16.840.1.881586.3.579.2. 462 Unknown [id number] 2.16.840.1.213167.3.579.2. 462 Unknown 18234659 2.16.840.1.135510.3.579.2. 462 Unknown 37910012 2.16.840.1.840199.3.579.2. 462 Unknown 24714092 2.16.840.1.830300.3.579.2. 462 Unknown 58206250 2.16.840.1.252898.3.579.2. 462 Unknown [id number] 2.16.840.1.746235.3.579.2. 462 Unknown [id number] 2.16.840.1.099723.3.579.2. 462 Unknown 53062206 2.16.840.1.756987.3.579.2. 462 Unknown [id number] 2.16.840.1.691560.3.579.2. 462 Unknown 48917984 2.16840.1.468013.3.579.2. 462 Unknown [id number] 2.16.840.1.968823.3.579.2. 462 Unknown [id number] 2.16.840.1.870521.3.579.2. 462 Unknown [id number] 2.16.840.1.557443.3.579.2. 462 Unknown [id number] 2.16.840.1.261725.3.579.2. 462 Unknown [id number] 2.16840.1.276362.3.579.2. 462 Unknown [id number] 2.16840.1.869326.3.579.2. 462 Social History Date Type Detail Facility Start: 08-18-2013 End: 05-28-2023 Former smoker Former smoker [facility] Start: 08-18-2013 End: 08-29-2023 Tobacco smoking status NHIS Ex-smoker [facility] Work Phone: Start: 05-06-1992 End: 05-06-2012 History of tobacco use Current smoker [facility] Work Phone: Start: 05-06-1992 End: 05-06-2012 History of tobacco use Cigarette Smoker [facility] Work Phone: Start: 08-18-2013 End: 08-29-2023 Tobacco use and exposure Smokeless tobacco non-user [facility] Work Phone: Start: 05-28-2023 End: 08-29-2023 Alcohol intake Current non-drinker of alcohol (finding) [facility] Start: 08-19-2017 End: 05-28-2023 Tobacco use panel [facility] Retired 04/06/2019 PHQ Score 4 [facility] Start: 1960 Sex Assigned At Not on file [facility] NEGATED: Highlighted row - - -[facility] [address] Work Phone: Medical Equipment Procedure Code Equipment Code Equipment Origin al Text Equipment Identifier Dates Start: 09-30-2015 Comment on above: TEST BLOOD SUGAR(S)5 -6 DAILY. DX: DIABETES. INSULIN: YES Inject 4-6 times osiel ly 1 Each one time a we ek. BD Insulin Syrin ge U/F 30G X 1/2" 1 ML USE TO INJECT METHOTREXATE ONCE A WEEK Quantity: 20 Refills: 0 Start : 08-Aug-2019 Active Start: 08-08-2019 TEST BLOOD SUGAR(S)5-6 DAILY. DX: DIABETES. INSULIN: YES [id number] Start: 09-30-2015 Inject 4-6 times daily [id number] Start: 04-14-2016 1 Each one time a week. [id number] Start: 08-08-2019 Functional Status Date Assessment Result Facility 08-23-2017 Are you deaf, or do you have serious difficulty hearing No 08/23/2017 8:47 PM Coleen Majano (Rn) (Hist), RN No [facility] 08-23-2017 Are you blind, or do you have serious difficulty seeing, even when wearing glasses No 08/23/2017 8:47 PM Coleen Majano (Rn) (Hist), RN No [facility] 08-23-2017 Do you have serious difficulty walking or climbing stairs No 08/23/2017 8:47 PM Coleen MajanoRn) (Hist), RN No [facility] 08-23-2017 Do you have difficul ty dressing or bathing No 08/23/2017 8:47 PM EDT Coleen Rowley (Rn) (Hist), RN No [facility] 08-23-2017 Because of a physica l, mental, or emotional condition, do you have difficulty doing errands alone such as visiting a physician's office or shopping No 08/23/2017 8:47 PM EDT Coleen Rowley (Rn) (Hist), RN No [facility] NEGATED: Highlighted row Functional performance Functional status health issues are not documented Disease [facility] [address] Work Phone: Mental Status Date Assessment Result Facility 08-23-2017 Because of a physical, mental, or emotional condition, do you have serious difficulty concentrating, remembering, or making decisions No 08/23/2017 8:47 PM EDT Coleen Rowley (Rn) (Hist), RN No [facility] NEGATED: Highlighted row Cognitive function [Interpretation] Cognitive status health issues are not documented Disease [facility] [address] Work Phone: Clinical Notes 12-27-2015 to 09-30-2024 Sherine Wheat MD - 09/30/2024 2:12 AM Sherine Kuo MD - 09/30/2024 2:12 AM Arnulfo Crowley APRN.COMMERCIAL SALES SPECIALIST - 08/29/2023 1:47 PM Royce Payne - 05/28/2023 9:30 AM EDT Note Date & Type Note Facility 09-30-2024 History and physi carrol note HPI Ashley Méndez is a 64 year old female here today for followup of complications from ulcerative colitis. SP total proctocolectomy in [place]. Subsequent referral to [facility] 06/15/2008 Thai Huang MD Lapartomy for recurrent bowel obstructions at the level of the ileostomy 06/29/2008 Sherine Wheat MD Revision of end ileostomy for stoma relocation retraction right to left with loop end ileotomy 10/15/2008 Sherine Wheat MD Removal of retained drain 08/19/2017 Dean Milton Laparotomy and drainage of chronic abscess cavity. History of QUIROGA Recent problems: Two holes are observed at [...] HOURS. AFTER USE RINSE MOUTH WITH WATER & SPIT OUT. DO NOT SWALLOW. (Patient not [...] PRESCRIPTION Convatec - Juanita Cohesive Ostomy Seals #[id number] Dx: V45.89; V44.2 COMPOUNDED PRESCRIPTION Convatec - Esteem 10" drainable ostomy pouch #[id number] Dx: V45.89; V44.2 COMPOUNDED PRESCRIPTION PEREZ [employer] NEPHEW Skin-Prep. V45.89, V44.2. 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 Dx: E11.65. On insulin. COMPOUNDED PRESCRIPTION CONVATEC [...] Cinnamon Anaphylaxis Airborne and ingested reactions: throat & lips swell, SOB Dicyclomine Vomiting Aripiprazole Vomiting [...] Victoza [Liraglutid* Other: See Comments Acute pancreatitis Pmwvbxo-Nkt-Cod Red* GI Upset Social History Tobacco Use [...] (coronary artery disease) 08/18/2013 Dr. Cresencio Menon, [facility] Chest pain at rest 08/21/2013 Dr. Wright, Pain Management CHF (congestive heart failure) ([facility]) 08/21/2013 Chronic abdominal wound infection CKD (chronic kidney disease) stage 3, GFR 30-59 ml/min ([facility]) 08/21/2013 CKD (chronic kidney disease), stage II 08/21/2013 COPD (chronic obstructive pulmonary disease) ([facility]) 08/18/2013 Dr. Cherelle Lazo, pulmonary Depression with [...] low transverse CHOLECYSTECTOMY CORONARY ARTERY BYP W/VEIN & ARTERY GRAFT 4 VEIN 2012 CABG, quadruple grafts DEBRIDEMENT:CURRETATE, SKIN SUBCUTANEOUS 08/14/2014 chronic abdominal wound ILEOSTOMY 1983 LEFT HEART CATH,PERCUTANEOUS 07/10/2013 Cardiac cath, L heart LEFT HEART CATH,PERCUTANEOUS 09/04/2015 Cardiac cath, L heart RADIOLOGICAL GUIDANCE PRQ DRG W/PLMT CATH RS&I 09/2017 abdominal abscess, was hospitalized following with sepsis REVJ ILEOSTOMY SIMPLE RLS SUPERFICIAL SCAR SPX 2008 STENT PLACEMENT,PERCUTAN,EACH 08/2012;09/2012; multiple TOTAL ABDOMINAL HYSTERECT W/WO RMVL TUBE OVARY 1990 Hysterectomy, CIRO, bilateral SO TOTAL FACIAL NERVE DECOMPRESSION &/REPAIR 1993 Facial nerve decomp, 1993, Right side [...] done in there presence of a female jelly filter tender. General: no acute distress Wheel chair bound [...] I shall confer with my partners at [facility] main -Colon and rectal surgery -Enterostomal therapy -GI/hepatology Images of the stoma, the perineum, and the abdominal wall pannus will be uploaded. Sherine Wheat MD DATE: 09/30/24 TIME: 2:12 AM [facility] 09-30-2024 History and physi carrol note HPI Ashley Méndez is a 64 year old female here today for followup of complications from ulcerative colitis. SP total proctocolectomy in [place]. Subsequent referral to [facility] 06/15/2008 Thai Huang MD Lapartomy for recurrent bowel obstructions at the level of the ileostomy 06/29/2008 Sherine Wheat MD Revision of end ileostomy for stoma relocation retraction right to left with loop end ileotomy 10/15/2008 Sherine Wheat MD Removal of retained drain 08/19/2017 Dean Milton Laparotomy and drainage of chronic abscess cavity. History of QUIROGA Recent problems: Two holes are observed at [...] HOURS. AFTER USE RINSE MOUTH WITH WATER & SPIT OUT. DO NOT SWALLOW. (Patient not [...] PRESCRIPTION Convatec - Juanita Cohesive Ostomy Seals #[id number] Dx: V4; V44.2 COMPOUNDED PRESCRIPTION Convatec - Esteem 10" drainable ostomy pouch #[id number] Dx: V4; V44.2 COMPOUNDED PRESCRIPTION [employer] Skin-Prep. V4, V44.2. 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 Dx: E11.65. On insulin. COMPOUNDED PRESCRIPTION CONVATEC [...] Cinnamon Anaphylaxis Airborne and ingested reactions: throat & lips swell, SOB Dicyclomine Vomiting Aripiprazole Vomiting [...] Victoza [Liraglutid* Other: See Comments Acute pancreatitis Mxmnrsu-Pfe-Kdh Red* GI Upset Social History Tobacco Use [...] (coronary artery disease) 08/18/2013 Dr. Cresencio Menon, [facility] Chest pain at rest 08/21/2013 Dr. Wright, Pain Management CHF (congestive heart failure) ([facility]) 08/21/2013 Chronic abdominal wound infection CKD (chronic kidney disease) stage 3, GFR 30-59 ml/min ([facility]) 08/21/2013 CKD (chronic kidney disease), stage II 08/21/2013 COPD (chronic obstructive pulmonary disease) ([facility]) 08/18/2013 Dr. Cherelle Lazo, pulmonary Depression with anxiety 08/21/2013 Fistula Gastroparesis History of Meniere's disease 1993 surgical treatment HTN (hypertension) 08/18/2013 Hyperlipidemia 08/18/2013 Hypoxemia 12/18/2013 Dr. Cherelle Lazo, pulmonary Migraine 08/21/2013 Neck pain ANKITA on CPAP 08/21/2013 Pulmonary hypertension, moderate to severe ([facility]) 08/21/2013 S/P total colectomy 08/18/2013 Ulcerative colitis, ileostomy. Type II or unspecified type diabetes mellitus without mention of complication, uncontrolled 08/18/2013 Ulcerative colitis ([facility]) PAST SURGICAL HISTORY Procedure Laterality Date DELIVERY ONLY 1988 , low transverse CHOLECYSTECTOMY CORONARY ARTERY BYP W/VEIN & ARTERY GRAFT VEIN 2012 CABG, quadruple grafts DEBRIDEMENT:CURRETATE, SKIN SUBCUTANEOUS 08/14/2014 chronic abdominal wound ILEOSTOMY 1983 LEFT HEART CATH,PERCUTANEOUS 07/10/2013 Cardiac cath, L heart LEFT HEART CATH,PERCUTANEOUS 09/04/2015 Cardiac cath, L heart RADIOLOGICAL GUIDANCE PRQ DRG W/PLMT CATH RS&I 09/2017 abdominal abscess, was hospitalized following with sepsis REVJ ILEOSTOMY SIMPLE RLS SUPERFICIAL SCAR SPX 2008 STENT PLACEMENT,PERCUTAN,EACH 08/2012;09/2012; multiple TOTAL ABDOMINAL HYSTERECT W/WO RMVL TUBE OVARY 1990 Hysterectomy, CIRO, bilateral SO TOTAL FACIAL NERVE DECOMPRESSION &/REPAIR 1993 Facial nerve decomp, 1993, Right side [...] done in there presence of a female jelly filter tender. General: no acute distress Wheel chair bound [...] I shall confer with my partners at [facility] main -Colon and rectal surgery -Enterostomal therapy -GI/hepatology Images of the stoma, the perineum, and the abdominal wall pannus will be uploaded. Sherine Wheat MD DATE: 09/30/24 TIME: 2:12 AM documented in this encounter [facility] 08-29-2023 History of Presen t illness Narrative This note was created using [employer]. Subjective Ashley Méndez is a 63 year old female. HPI About two days ago pt fell and injured her left great toe. She states that it is continue to be painful with walking. She does note a headache but states that this is chronic and nothing acute. Review of Systems Eyes: Negative for visual disturbance. Musculoskeletal: Positive for arthralgias. Neurological: Positive for headaches. Negative for tremors, seizures, speech difficulty and weakness. Objective BP 128/78 Pulse 66 Temp 36.7 C (98 F) (Tympanic) Resp 18 Wt 96.3 kg (212 lb 4.9 oz) SpO2 96% BMI 33.25 kg/m Physical Exam Vitals and nursing note reviewed. Constitutional: General: She is not in acute distress. Appearance: Normal appearance. She is not ill-appearing. HENT: Head: Normocephalic. Mouth/Throat: Mouth: Mucous membranes are moist. Eyes: Conjunctiva/sclera: Conjunctivae normal. Cardiovascular: Rate and Rhythm: Normal rate and regular rhythm. Pulmonary: Effort: Pulmonary effort is normal. Breath sounds: Normal breath sounds. Musculoskeletal: General: Normal range of motion. Cervical back: Normal range of motion. Comments: Ecchymosis and tenderness over the left first MTP joint and great toe. No tenderness extending up into the foot or ankle. No obvious deformities noted. There is no subungual hematoma. Skin: General: Skin is warm and dry. Neurological: General: No focal deficit present. Mental Status: She is alert. Psychiatric: Mood and Affect: Mood normal. Behavior: Behavior normal. Assessment and Plan ASSESSMENT/PLAN: 1. Great toe pain, left - ICD9: 729.5, ICD10: M79.675 Using [employer] patient's first and second toes were nicolas taped together. We did attempt a walking shoe which patient stated was less comfortable than her current shoe. X-ray of the toe was ordered for which patient will return in the morning. I encouraged her to use her walker at home for stability. - XR TOE AP/LAT/OBL LEFT Arnulfo Dacosta APRN.[employer]IST documented in this encounter [facility] 05-28-2023 History of Presen t illness Narrative Last time saw pcp: not documented in chart Consultation requested by Dr. hubbard for an opinion regarding 2nd toenail pain. My final recommendations will be communicated back to the requesting physician by way of shared Medical record or letter to requesting physician via US mail. Subjective: This 62 year old female presents to clinic for diabetic foot check. Patient has the following complaints: right 2nd toe ingrown. Patient admits to being diabetic for 30 years now. Patient +B/T/N in feet at this time. Patient -pain in legs when walking. No other pedal complaints at this time. States her last A1c (this month at [place]) was 7.2. No change in medications or medical history since last visit. PAIN EVALUATION 05/28/2023 0904 Pain Level: 7 Pain Location: Toe Duration Units: Years Frequency: Intermittent Intervention/Comfort measure: Relaxation;Reposition Hemoglobin A1C (%) Date Value 08/19/2017 10.0 06/23/2016 8.7 03/18/2016 9.5 12/17/2015 9.3 06/25/2015 8.2 PCP: Mala Mcgrath MD PAST MEDICAL HISTORY Diagnosis Date Acute pancreatitis Arteriosclerotic heart disease Back pain CAD (coronary artery disease) 08/18/2013 Dr. Cresencio Menon, [facility] Chest pain at rest 08/21/2013 Dr. Wright, Pain Management CHF (congestive heart failure) ([facility]) 08/21/2013 Chronic abdominal wound infection CKD (chronic kidney disease) stage 3, GFR 30-59 ml/min ([facility]) 08/21/2013 CKD (chronic kidney disease), stage II 08/21/2013 COPD (chronic obstructive pulmonary disease) ([facility]) 08/18/2013 Dr. Cherelle Lazo, pulmonary Depression with anxiety 08/21/2013 Fistula Gastroparesis History of Meniere's disease 1994 surgical treatment HTN (hypertension) 08/18/2013 Hyperlipidemia 08/18/2013 Hypoxemia 12/18/2013 Dr. Cherelle Lazo, pulmonary Migraine 08/21/2013 Neck pain ANKITA on CPAP 08/21/2013 Pulmonary hypertension, moderate to severe ([facility]) 08/21/2013 S/P total colectomy 08/18/2013 Ulcerative colitis, ileostomy. Type II or unspecified type diabetes mellitus without mention of complication, uncontrolled 08/18/2013 Ulcerative colitis ([facility]) Current Outpatient Medications Medication Sig albuterol HFA 90 mcg/actuation HFA Inhale 2 Puffs as instructed as needed. Benzonatate 200 mg capsule Take 200 mg by mouth three times a day as needed for cough. buprenorphine (BUTRANS) 15 mcg/hour patch Apply 1 Patch as directed one time a week. cholestyramine (QUESTRAN) 4 gram packet Take 1 Packet by mouth two times a day with meals. atorvastatin (LIPITOR) 80 mg tablet Take 1 tablet by mouth daily at bedtime. For cholesterol. aspirin (ASPIRIN CHILDRENS) 81 mg chewable tablet Take 81 mg by mouth once daily. clopidogrel (PLAVIX) 75 mg tablet Take 75 mg by mouth once daily. folic acid 1 mg tablet TAKE 1 [...] HOURS. AFTER USE RINSE MOUTH WITH WATER & SPIT OUT. DO NOT SWALLOW. HUMALOG KWIKPEN INSULIN 200 unit/mL (3 mL) injection INJECT 45 UNITS SUBCUTANEOUSLY 3 TIMES A DAY ondansetron orally disintegrating (ZOFRAN ODT) 4 mg disintegrating tablet TAKE 1 TABLET BY MOUTH EVERY 8 HOURS NEEDED FOR NAUSEA AND VOMITING traZODone (DESYREL) 50 mg tablet TAKE 1 TABLET BY MOUTH EVERY DAY AT BEDTIME FOR INSOMNIA Insulin Syringe-Needle U-100 1 mL 29 gauge x 1/2" 1 Each one time a week. Oral Medication Containers (SHARPS CONTAINER) [facility] Use for MTX syringes loperamide (IMODIUM) 2 mg cap(s) Take 2 mg by mouth. fluticasone (FLONASE) 50 mcg/actuation nasal spray 2 SPRAY INTRANASAL DAILY administer into each nostril miconazole (LOTRIMIN AF, DESENEX) 2 % powder DAILY promethazine (PHENERGAN) 12.5 mg tablet TAKE ONE TABLET BY MOUTH THREE TIMES DAILY NEEDED FOR NAUSEA AND FOR VOMITING venlafaxine ER (EFFEXOR XR) 150 mg 24 hr capsule Take 150 mg by mouth once daily. Cholecalciferol, Vitamin D3, (VITAMIN D-3) 2,000 unit cap Take by mouth once daily. traMADol (ULTRAM) 50 mg tablet Take 50 mg by mouth every 6 hours as needed. buprenorphine (BUTRANS) 5 mcg/hour Apply 1 Patch as directed once each week. (Patient not taking: Reported on 05/28/2023) pregabalin (LYRICA) 50 mg capsule Take 50 mg by mouth twice daily. insulin aspart (NOVOLOG) 100 unit/mL soln Inject 20-40 Units subcutaneously three times daily with meals. ondansetron (ZOFRAN) 4 mg tablet Take 4 mg by mouth as needed. COMPOUNDED PRESCRIPTION Convatec - Juanita Cohesive Ostomy Seals #[id number] Dx: V45.89; V44.2 COMPOUNDED PRESCRIPTION Convatec - Esteem 10" drainable ostomy pouch #[id number] Dx: V45.89; V44.2 COMPOUNDED PRESCRIPTION PEREZ [employer] NEPHEW Skin-Prep. V45.89, V44.2. Use as directed twice a week. insulin needles, DISPOSABLE, (BD INSULIN PEN NEEDLE UF) 31 gauge x 5/16" ndle Inject 4-6 times daily isosorbide dinitrate (ISORDIL, SORBITRATE) 30 mg tablet Take 1 tablet by mouth three times daily. blood sugar diagnostic (FREESTYLE LITE STRIPS) test strip TEST BLOOD SUGAR(S)5-6 DAILY. DX: DIABETES. INSULIN: YES furosemide (LASIX) 20 mg tablet Take 1 tablet by mouth once daily. 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 Dx: E11.65. On insulin. COMPOUNDED PRESCRIPTION CONVATEC Allkare Adhesive remover. V45.89, V44.2. Use twice a week as directed. metoprolol tartrate, short acting, 50 mg tablet Take 1.5 tablets by mouth three times daily. nitroglycerin sublingual (NITROSTAT) 0.4 mg SL tablet Dissolve 0.4 mg under the tongue every 5 minutes as needed. No current facility-administered medications for this visit. ALLERGIES Allergen Reactions Cinnamon Anaphylaxis Airborne and ingested reactions: throat & lips swell, SOB Dicyclomine Vomiting Aripiprazole Vomiting Azulfidine [Sulfasa* Hives Ciprofloxacin Rash Codeine Intolerance Stops ileostomy functioning-severe constipation Flagyl [Metronidazo* Hives Fluzone High-Dose 2* Shortness of Breath Difficulty breathing, chest pain Glucophage [Metform* GI Upset Influenza Virus Vac* Shortness of Breath, Other: See Comments Chest pain Penicillins Hives Ranexa [Ranolazine] Unknown Sulfa (Sulfonamide * Hives Victoza [Liraglutid* Other: See Comments Acute pancreatitis Lyyuvif-Ixn-Nix Red* GI Upset PAST SURGICAL HISTORY Procedure Laterality Date DELIVERY ONLY 1988 , low transverse CHOLECYSTECTOMY CORONARY ARTERY BYP W/VEIN & ARTERY GRAFT 4 VEIN 2012 CABG, quadruple grafts DEBRIDEMENT:CURRETATE, SKIN SUBCUTANEOUS 08/14/2014 chronic abdominal wound ILEOSTOMY 1983 LEFT HEART CATH,PERCUTANEOUS 07/10/2013 Cardiac cath, L heart LEFT HEART CATH,PERCUTANEOUS 09/04/2015 Cardiac cath, L heart RADIOLOGICAL GUIDANCE PRQ DRG W/PLMT CATH RS&I 09/2017 abdominal abscess, was hospitalized following with sepsis REVJ ILEOSTOMY SIMPLE RLS SUPERFICIAL SCAR SPX 2008 STENT PLACEMENT,PERCUTAN,EACH 08/2012;09/2012; multiple TOTAL ABDOMINAL HYSTERECT W/WO RMVL TUBE OVARY 1990 Hysterectomy, CIRO, bilateral SO TOTAL FACIAL NERVE DECOMPRESSION &/REPAIR 1993 Facial nerve decomp, 1993, Right side FAMILY HISTORY Problem Relation Age of Onset Cancer Father Diabetes Mother Stroke Mother None Sister Heart Failure Brother other (pancreatitis) Brother Social History Tobacco Use Smoking status: Former Packs/day: 0.50 Years: 20.00 Additional pack years: 0.00 Total pack years: 10.00 Types: Cigarettes Quit date: 05/06/2012 Years since quittin.0 Smokeless tobacco: Never Vaping Use Vaping Use: Never used Substance Use Topics Alcohol use: No Drug use: No REVIEW OF SYSTEMS GENERAL: Negative for Malaise, significant weight loss, fever RESPIRATORY: Negative for cough, wheezing and shortness of breath CARDIOVASCULAR: Negative for chest pain, leg swelling and palpitations GI: Negative for abdominal discomfort, blood in stools or black stools and change in bowel habits : Negative for dysuria, frequency and incontinence MUSCULOSKELETAL: Negative for joint pain or swelling, back pain, and muscle pain. SKIN: Negative for lesions, rash, and itching. HEMATOLOGY/LYMPHOLOGY Negative for prolonged bleeding, bruising easily, and swollen nodes. ENDOCRINE: Negative for cold or heat intolerance, polyuria, polydipsia and goiter. NEURO: negative The remainder of the review of systems is noncontributory. Objective: Patient presents to clinic ambulating in [facility] Constitutional: Pt is a well developed 62 year old female who is alert, oriented, cooperative and in no apparent distress. Eyes: Following during examination. No redness or drainage. Respiratory: RR normal and nonlabored. Even breathing. No evidence of distress. Psychology: Patient is engaged during conversation. Normal affect and mood. Does not appear depressed or anxious. Vasc: DP and PT pulses are faintly palpable bilateral. CFT is less than 5 seconds bilateral. Skin temperature is warm to cool proximal to distal bilateral. There is no edema or varicosities noted. Hair growth decreased. Neuro: Protective sensation is intact to the foot and toes when tested with the 5.07 SWM bilateral. Vibratory sensation is decreased at the hallux bilateral. + Significant neurological defecits. Derm: Inspection and palpation performed. Nails 1-5 b/l are discolored-yellow, thick, crumbly, dystrophic and with subungal debris. Pain and incurvation is noted to right 2nd toe. Skin is thin, dry, scaly. Hyperkeratosis noted to not present. NO ulcerations, scars, verruca or other lesions noted. Ortho: Ankle joint DF is full with the knee extended and full with knee flexed. No pain or crepitus noted. STJ, MTJ ROM are full and free of pain or crepitus. Muscle strength is 5/5 for dorsiflexors, plantarflexors, inverters, everters. Digital deformities include none. Assessment: (B35.1) Onychomycosis (primary encounter diagnosis) (L60.3) Onychodystrophy (M79.675) Pain in toe of left foot (M79.674) Pain in toe of right foot (E11.42) Diabetic polyneuropathy associated with type 2 diabetes mellitus (HCC) (R09.89) Diminished pulses in lower extremity Plan: 1. Patient was seen and evaluated. 2. Patient was instructed on the continued importance of diabetic foot care along with proper diet and keeping their blood sugar under control to prevent complications. Instructions given both oral and written. Informed patient that she suffers from early neuropathy. It is very imperative she monitor her foot, avoid barefoot walking and wear good shoes. 3. Discussed ingrowign tendency of right 2nd toe. Discussed options for nial not limited to topical medication, oral medication, laser therapy vs removal. Given history of fatty liver, she is not candidate for oral medication. She is interested in removal. Will check A1c first. Toenails 1-5 b/l debrided in length and thickness with nail nipper. Small bleed to 2nd toe and band aide applied. 4. Recommend lotion to feet daily Royce Vaz DPM AMB ROOMING INTAKE FLOWSHEET DATA Risk Screening Do you have concerns about personal safety or safety in the home?: No Pain Pain Level: 7 Pain Location: Toe Duration Units: Years Frequency: Intermittent Intervention/Comfort measure: Relaxation, Reposition Patient presents with: Right Foot - New, Pain, Ingrown Toenail Patient presents for possible ingrown toenail to right 2nd toe. Hx of diabetes. States that it has been an ongoing issue over the last few years. documented in this encounter [facility] 12-27-2015 History of Past i llness Narrative Problem Noted Date Diagnosed Date Resolved Date Lower back pain 12/27/2015 01/10/2016 Pain in right elbow 01/15/2015 03/24/19 17 Open wound of abdominal wall , anterior, complicated 05/22/2014 07/05/2015 documented as of this encounter (statuses as of 05/28/2023) [facility] Onychomycosis- Primary Dermatophytosis of nail Onychodystrophy Other specified disease of nail Pain in toe of left foot Pain in limb Pain in toe of right foot Pain in limb Diabetic polyneuropathy associated with type 2 diabetes mellitus (HCC) Diminished pulses in lower extremity Other symptoms involving cardiovascular system [facility] Great toe pain, left- Primary [facility] Diagnosis Ileostomy in place (HCC) Ileostomy status Crohn's colitis, with fistula (HCC) Morbid (severe) obesity due to excess calories ([facility]) [facility] Diagnosis Bleeding from colostomy stoma (HCC)- Primary Other complication of colostomy or enterostomy [facility] Outpatient Procedure (Routine) - Authorized Specialty Diagnoses / Procedures Referred By Contac t Referred To Contact [facility] Diagnoses Diabetic polyneuropathy associated with type 2 diabetes mellitus (HCC) Diminished pulses in lower extremity Procedures PVR ANK PRESS MARCEL [facility] NON-INVAS PHYSIOLOGIC STD EXTREMITY ART [address] [place] [address] [facility] [address] [place] [address] Referral ID Status Reason Start Date Expiration Date Visits Requested Visits Authorized [id number] Authorized Auto-Generat ed Referral 05/28/2023 05/27/2024 1 1 [facility] Diagnostic Procedure Only (Urgent) - Pending Review Specialty Diagnoses / Procedures Referred By Contac t Referred To Contact XR IMAGING Diagnoses Great toe pain, left Procedures XR TOE AP/LAT/OBL LEFT RADEX TOE MINIMUM 2 VIEWS Arnulfo Dacosta, JACK SPOOLER TENDER.COMMERCIAL SALES SPECIALIST [address] [place] [address] [place] [address] Referral ID Status Reason Start Date Expiration Date Visits Requested Visits Authorized [id number] Pending Review Auto-Generat ed Referral 08/30/2023 09/27/2024 1 1 [facility] Summary Purpose Family History No Family History Records Found Mother Name Dates Details Family history of diabetes m ellitus(V18.0, Z83.3) Status:Active Family history of cerebrovas cular accident (CVA)(V17.1, Z82.3) Status:Active Brother Name Dates Details Family history of congestive heart failure(V17.49, Z82.49) Status:Active Mother Name Dates Details Family history of diabetes m ellitus(V18.0, Z83.3) Status:Active Family history of cerebrovas cular accident (CVA)(V17.1, Z82.3) Status:Active Brother Name Dates Details Family history of congestive heart failure(V17.49, Z82.49) Status:Active Unknown Family Member Name Dates Details Family history of diabetes m ellitus: Mother(V18.0, Z83.3) Status:Active Family history of cerebrovas [...] ized section and content) DATE CREATED AUTHOR 08/26/2017 [facility] DATE CREATED AUTHOR AUTHOR'S ORGANIZ ATION 08/31/2017 [facility] DATE CREATED AUTHOR AUTHOR'S ORGANIZ ATION 09/01/2017 [facility] DATE CREATED AUTHOR AUTHOR'S ORGANIZ ATION 09/01/2017 [facility] DATE CREATED AUTHOR AUTHOR'S ORGANIZ ATION 06/18/2020 [employer] DATE CREATED AUTHOR AUTHOR'S ORGANIZ ATION 10/12/2024 [facility] DATE CREATED AUTHOR AUTHOR'S ORGANIZ ATION 10/15/2024 [facility] DATE CREATED AUTHOR AUTHOR'S ORGANIZ ATION 01/11/2025 [facility] Source Comments (unrecognize d section and content) In the event this informatio n is protected by the Federal Confidentiality of Alcohol and Drug Abuse Patient Records regulations: The Federal rules restrict any use of the information to criminally investigate or prosecute any alcohol or drug abuse patient.[facility] the event this information is protected by the Federal Confidentiality of Alcohol and Drug Abuse Patient Records regulations: The Federal rules restrict any use of the information to criminally investigate or prosecute any alcohol or drug abuse patient.[facility] the event this information is protected by the Federal Confidentiality of Alcohol and Drug Abuse Patient Records regulations: The Federal rules restrict any use of the information to criminally investigate or prosecute any alcohol or drug abuse patient.[facility] the event this information is protected by the Federal Confidentiality of Alcohol and Drug Abuse Patient Records regulations: The Federal rules restrict any use of the information to criminally investigate or prosecute any alcohol or drug abuse patient.[facility] Reason for Visit (unrecogniz ed section and content) Reason Comments New Pain Ingrown Toenail Reason Comments left toe pain Fell 2 days ago Care Teams (unrecognized sec tion and content) Knapsack Sprayer Relationship Specialty Start Date End Date Mala Mcgrath MD [address] [facility] [address] [place], [place] [id number] PCP - General Internal Medicine 07/29/17 Royce Vaz [address] [place] [address] Podiatry 12/27/19 Kieran Rico MD [address] [place], [place] [id number] Cemetery Workers Supervisor Nephrology 12/27/19 Aj Andino DO [address] [phone] Referring Gastroenterology 02/10/[address] [place] [id number] Registered Dietitian Nutrition 02/18/22 Knapsack Sprayer Relationship Specialty Start Date End Date Mala Mcgrath MD [address] [address] PCP - General Internal Medicine 07/29/17 Royce Vaz [address] [place] [address] Podiatry 12/27/19 Kieran Rico MD [address] [place] [address] Cemetery Workers Supervisor Nephrology 12/27/19 Aj Andino DO [facility] [address] [place] [address] Referring Gastroenterology 02/10/[address] [place] [id number] Registered Dietitian Nutrition 02/18/22 Knapsack Sprayer Relationship Specialty Start Date End Date Mala Mcgrath MD [address] [place] [address] PCP - General Internal Medicine 07/29/17 Royce Vaz [address] [place] [address] Podiatry 12/27/19 Kieran Rico MD [address] [place] [address] Cemetery Workers Supervisor Nephrology 12/27/19 Aj Andino DO [address] [place], [place] [id number] Referring Gastroenterology 02/10/[address] [place] [phone] Registered Dietitian Nutrition 02/18/22 Knapsack Sprayer Relationship Specialty Start Date End Date Mala Mcgrath MD [address] [place] [address] PCP - General Internal Medicine 07/29/17 Royce Vaz [address] [place] [address] Podiatry 12/27/19 Kieran Rico MD [address] [facility] [address] [place], [place] [id number] Cemetery Workers Supervisor Nephrology 12/27/19 Aj Andino DO [address] [place], [place] [address] Referring Gastroenterology 02/10/[address] [place] [address] [phone] Registered Dietitian Nutrition 02/18/22 FOR RECORDS PERTAINING TO PATIENTS WHO ARE [...] BE BASED ON THE PRIMARY CLINICAL RECORDS. [employer] [facility]. provides no warranty or guarantee of the accuracy or completeness of information in this document.
[2025-01-13] MEDS: 0.9% Normal Saline (1000mL) 1,000 ML 1000 ML IV (10:16)
[2025-01-13 10:22] LABS: Hematocrit 41.1 % (37-47); Hemoglobin 12.4 g/dL (12.0-15.0); Immature Granulocytes Count 0.120 X10^3/uL (0.0-0.0); Mean Corp Hgb Conc 30.2 g/dL (32-36); Mean Corpuscular Volume 80.4 fL (81-99); Mean Platelet Vol. 11.1 fl (6.2-12.0); NRBC Flagged by Analyzer 0 % (0-5); Platelet Count 251 K/mm3 (150-450); RBC Distribution Width CV 16.9 % (11.6-14.6); RBC Distribution Width SD 49.1 fl (35.1-43.9); Red Blood Count 5.11 M/mm3 (4.2-5.4); White Blood Count 20.7 K/mm3 (4.4-11.0)
[2025-01-13 10:45] LABS: AST(SGOT) 17 U/L (<=31); Alanine Aminotransfer ALT/SGPT 8 U/L (<=34); Albumin, Serum 3.7 g/dL (3.4-4.8); Alkaline Phosphatase 148 U/L (35-104); Anion Gap 12 (5-15); BUN 41 mg/dL (4-19); BUN/Creat Ratio 19.5 RATIO (10-20); Calcium,Total 10.0 mg/dL (7.6-11.0); Carbon Dioxide 21.8 mmol/L (21.0-32.0); Chloride 102 mmol/L (98-108); Estimated Creatinine Clearance 31.25 ml/min (50-250); Globulin 3.6 g/dL (2.2-4.2); Glucose 171 mg/dL (70-99); Potassium 5.5 mmol/L (3.3-5.1)
--- NOTE | 2025-01-13 14:00 | CT_ITS ---
PROCEDURE: ABDOMEN/PELVIS WITHOUT CONT 01/13/2025 REASON FOR EXAM: ACUTE DIFFUSE PAIN, DIARRHEA, LEUKOCYTOSIS, CKD TECHNIQUE: Procedure Code: CTABDPEL Modality: CT Procedure: ABDOMEN/PELVIS WITHOUT CONT Noncontrast technique limits evaluation of the abdominal and pelvic viscera. Coronal and Sagittal reconstruction series were provided. One or more dose reduction techniques were used (e.g., Automated exposure control, adjustment of the mA and/or kV according to patient size, use of iterative reconstruction technique). RADIATION DOSE SUMMARY: CTDlvol: 40 mGy DLP: 2203 mGycm COMPARISON: 11/23/2024 FINDINGS: Noncontrast appearance of the liver and spleen is unremarkable. There is no pancreatic contour deformity or adjacent fluid collection. No renal calculi or hydronephrosis. Aortic calcification without aneurysm. Ostomy on the left. No free-fluid. No free air. No bowel obstruction. Prior left hip arthroplasty. Negative for dilatation of the large bowel or small bowel. Negative for bowel wall thickening. CT/Abdomen/Pelvis without Cont IMPRESSION: No acute abnormality. Reading [facility]
[2025-01-13] MEDS: 0.9% Normal Saline (1000mL) 1,000 ML 999 ML IV (14:11)
[2025-01-13] MEDS: fentaNYL 100 MCG/2 ML Ampul 50 MCG IV (14:11)
--- NOTE | 2025-01-13 15:57 | ED.RN ---
CT called about the delay in results. Reply was "we will give them a call and see what is going on".
--- OUTSIDE RECORDS SUMMARY | 2025-01-13 17:23 | XMS RPT_ITS | CCD ---
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 Referred By : , Acquired by : ADRIANA WALTER [facility] ED NOTEon 10-06-2024 ED NOTE HNO ID: [id number] Author: CHRISSY ALMENDAREZ CT Service: Emergency Medicine Author Type: Clinical Product Expert Type: ED Notes Filed: 10/09/2024 19:49 Note [...] DATE: October 09, 2024 TIME: 7:48 PM [facility] ED NOTE HNO ID: [id number] Author: GRACIELA FOX RN Service: Emergency Medicine Author Type: Registered Nurse Type: ED Notes Filed: 10/06/2024 15:27 Note Text: CT notifed pt ready for imaging Normal [facility] ED NOTE HNO ID: [id number] Author: GRACIELA FOX RN Service: Emergency Medicine Author Type: Registered Nurse Type: ED Notes Filed: 10/06/2024 14:54 Note Text: [place] collar placed per Dr Juan Normal [facility] ED NOTE HNO ID: [id number] Author: LM MACKENZIE RN Service: ? Author Type: Registered Nurse Type: ED Notes Filed: 10/06/2024 14:30 Note Text: Bed: 35-ED Expected date: Expected time: Means of arrival: Comments: Squad when clean Normal [facility] ED PROV NOTEon 10-06-2024 ED PROV NOTE HNO ID: [id number] Author: YVETTE JUAN MD Service: Emergency Medicine [...] (coronary artery disease) 08/18/2013 Dr. Cresencio Menon, [facility] Chest pain at rest 08/21/2013 Dr. Wright, Pain Management CHF (congestive heart failure) ([facility]) 08/21/2013 Chronic abdominal wound infection CKD (chronic kidney disease) stage 3, GFR 30-59 ml/min ([facility]) 08/21/2013 CKD (chronic kidney disease), stage II 08/21/2013 COPD (chronic obstructive pulmonary disease) ([facility]) 08/18/2013 Dr. Cherelle Lazo, pulmonary Depression with anxiety 08/21/2013 Fistula Gastroparesis History of Meniere's disease 1993 surgical treatment HTN (hypertension) 08/18/2013 Hyperlipidemia 08/18/2013 Hypoxemia 12/18/2013 Dr. Cherelle Lazo, pulmonary Migraine 08/21/2013 Neck pain ANKITA on CPAP 08/21/2013 Pulmonary hypertension, moderate to severe ([facility]) 08/21/2013 S/P total colectomy 08/18/2013 Ulcerative colitis, ileostomy. Type II or unspecified type diabetes mellitus without mention of complication, uncontrolled 08/18/2013 Ulcerative colitis ([facility]) PAST SURGICAL HISTORY Procedure Laterality [...] Victoza [Liraglutid* Other: See Comments Acute pancreatitis Uqpqtfi-Wcy-Fio Red* GI Upset Review of Systems Constitutional: Negative for fatigue and fever. HENT: Negative for hearing loss and sore throat. Eyes: Negative for visual disturbance. Respiratory: Negative for cough, shortness of breath and wheezing. Cardiovascular: Positive for chest pain. Negative for palpitations. Gastrointestinal: Positive for abdominal pain. Negative f (more content not included)... Normal [facility] Ethanol SerPl-mCncon 025 Ethanol [Mass/Vol] mg/dL Normal <11 [facility] Comment on above: Order Comment: Speci men Type: BLOOD SPECIMEN Ordering Facility: [facility] Address: [address] [place] [address] Performed By: #### 1 4979-9, 20828-3 #### [facility] CLIA [id number] 1 [place] [address] [place] Lipase SerPl-cCncon 10-07-19 25 Lipase [Catalytic activity/Vol] 45 U/L Normal 16-61 [facility] Comment on above: Order Comment: Speci men Type: BLOOD SPECIMEN Ordering Facility: [facility] Address: [address] [place] [address] Performed By: #### 1 4979-9, 58785-0 #### [facility] CLIA [id number] 1 [place] [address] [place] PT panel Coag (PPP)on 2024 INR Coag (PPP) [Relative time] 1.1 {INR} Normal 0.9-1.3 [facility] Comment on above: Order Comment: Specavelino lazcano Type: BLOOD SPECIMEN Ordering Facility: [facility] Address: [address] [place] [address] Result Comment: Kimberly min K Antagonist (VKA) Therapeutic Range: INR 2 to 3 (Target INR of 2.5) Note: For patients treated with VKA drugs, such as warfarin, the [place] [employer] 2012 Guideline recommends [...] Chest 2012, 141:7S-47S Orlando RA, et al. [facility] 2017, 70: 252-289 Performed By: #### 1 4979-9, 87011-5 #### [facility] CLIA [id number] 1 [place] [address] [place] PT Coag (PPP) [Time] 11.8 s Normal 9.7-13.0 [facility] Comment on above: Order Comment: Antione neno Type: BLOOD SPECIMEN Ordering Facility: [facility] Address: [address] [place] [address] Performed By: #### 1 4979-9, 19598-4 #### [facility] CLIA [id number] [address] [place] TYPE + SCREENon 10-06-2024 ABO O Normal [facility] Comment on above: Order Comment: Speci men Type: BLOOD SPECIMEN Ordering Facility: [facility] Address: [address] [id number] Performed By: #### 1 4979-9, 95162-3 #### [facility] CLIA [id number] [address] Rh Nom (Bld) Positive Normal [facility] Comment on above: Order Comment: Speci men Type: BLOOD SPECIMEN Ordering Facility: [facility] Address: [address] [place] [address] Performed By: #### 1 4979-9, 58202-2 #### [facility] CLIA [id number] [address] TYPE AND SCREEN EXPIRATION 10/09/2024 23:59 Normal [facility] Comment on above: Order Comment: Speci men Type: BLOOD SPECIMEN Ordering Facility: [facility] Address: [address] [place] [address] Performed By: #### 1 4979-9, 10745-1 #### [facility] CLIA [id number] [address] XR KNEE 4V AP/LAT/OBLS RTon 10-06-2024 [...] joint effusion given overlap of knee brace. Recordist Chief: PSCParminder Transcribe Date/Time: Oct 06 2024 3:48P Dictated by : KATHE GRANDE MD This examination was interpreted and the report reviewed and electronically signed by: KATHE GRANDE MD on Oct 06 2024 3:49PM EST [id number] Normal [facility] aPTT PPPon 10-06-2024 aPTT Coag (PPP) [Time] 29.7 s Normal 23.0-32.4 [facility] Comment on above: Order Comment: Speci men Type: BLOOD SPECIMEN Ordering Facility: [facility] Address: [address] [place] [address] Performed By: #### 1 4979-9, 85777-0 #### [facility] CLIA [id number] 1 [place] [address] [place] HISTORY PHYSICALon HISTORY PHYSICAL HNO ID: [id number] Author: SHERINE WHEAT MD Service: ? Author Type: Physician Type: H&P Filed: 10/12/2024 14:05 Note Text: GLORY Méndez is a 64 year old female here today for followup of complications from ulcerative colitis. SP total proctocolectomy in [place]. Subsequent referral to [facility] 06/15/2008 Thai Huang [...] cholesterol. i (more content not included)... Normal [facility] Established Visit (Gastroent erology)on 06-17-2020 Established [...] (nonalcoholic steatohepatitis); DARINEL = N; Sent To: [facility]; Last Updated By: [facility]; 06/17/2020 10:37:30 AM Start: Dicyclomine HCl - 20 MG Oral Tablet; TAKE 1 TABLET EVERY 6 HOURS NEEDED Rx By: Brennan Duque; Dispense: 30 Days ; #:120 Tablet; Refill: 5;For: QUIROGA (nonalcoholic steatohepatitis); DARNIEL = N; Sent To: [facility]; Last Updated By: [employer]; 06/17/2020 10:37:20 AM Chief Complaint FUV in [...] I get most recent labs from 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 Eyes Anicteric Sclerae . Pulmonary Auscultation of lungs: Clear. Cardiovascular Auscultation of heart: RRR without murmur. Examination of extremities for edema: Normal. Abdomen Soft, non-tender. Bowel sounds normal. No hepatomegaly or splenomegaly. Signatures Electronically signed by : Brennan Duque DO; Jun 17 2020 12:03PM EST (Author) Normal [facility] Established Visit (Gastroent erology)on 12-20-2019 Established Visit [...] advised her given the MRI report from [facility] showing steatohepatitis and no mass that she needs yearly FibroScan to assess for cirrhosis. Continue to control diabetes keep A1c below 7% continue low-fat diet and exercise program to keep weight under control. Avoid alcohol, NSAIDs. May use Tylenol up to 2000 mg daily. Should have yearly labs to assess liver along with FibroScan annually. Chief Complaint Follow up with labs from [facility]. Awaiting MRI results to be faxed from [facility]. Liver bx done on 10/11/19. Ct ab pel done on 10/10/19.US done on 12/2017. History of Present IllnessPatient seen today in follow-up for liver abnormality. I was able to review her labs from [facility] and most recent outpatient labs ordered by myself. Biopsy of mass in liver showed no mass but steatohepatitis consistent with Quiroga. She did bring a copy of her MRI but unfortunately was unable to view the disc as a had no CD slot on my computers in the office. Report that was pulled up from [facility] website indicated no mass was noted [...] (V15.82) (Z87.891) 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 power of traffic law attorney for health care (V49.89) (Z78.9) Allergies Medication [...] DEPRESSION Vitals Vital Signs Recorded: 20Dec2019 09:35AM Sfpkohkbadg04.2 F Xhojgnlt044 Tvipyhply14 Height5 ft 7 in Vuroqz080 lb BMI Gkkmxyvque93.54 BSA Calculated2 Physical Exam Constitutional General appearance: In no acute distress . Eyes Anicteric Sclerae . Pulmonary Auscultation of lungs: Clear. Cardiovascular Auscultation of heart: RRR without murmur. Examination of extremities for edema: Normal. Abdomen Soft, non-tender. Bowel sounds normal. No hepatomegaly or splenomegaly. Signatures Electronically signed by : Brennan Duque DO; Dec 20 2019 12:47PM EST (Author) Normal [facility] Initial Visit (Gastroenterol ogy)on 11-30-2019 Initial Visit (Gastroenterology ) Diagnoses/Problems Assessed Gastroparesis (536.3) (K31.84) Pancreatitis, recurrent (577.1) (K85.90) Liver mass (573.8) (R16.0) Orders Liver mass Alpha Fetoprotein, Serum; Status:Active; Requested for:30Nov2019; Perform:Lab Services - Lab To Draw (Blood Test); Due:01Rfs6082;Ordered; For:Liver mass; Ordered By:Brennan Duque; C Reactive Protein, Serum; Status:Active; Requested for:16Nyg1891; Perform:Lab Services - Lab To Draw (Blood Test); Due:89Qhs9124;Ordered; For:Liver mass; Ordered By:Brennan Duque; Carcinoembryonic Antigen; Status:Active; Requested for:07Hoy5516; Perform:Lab Services - Lab To Draw (Blood Test); Due:14Ddq9193;Ordered; For:Liver mass; Ordered By:Brennan Duque; CELIAC DISEASE SEROLOGY PANEL; Status:Active; Requested for:86Jlg8161; Perform:Lab Services - Lab To Draw (Blood Test); Due:81Tpx1689;Ordered; For:Liver mass; Ordered By:Brennan Duque; Ceruloplasmin, Serum; Status:Active; Requested for:09Kxe4635; Perform:Lab Services - Lab To Draw (Blood Test); Due:16Ote9576;Ordered; For:Liver mass; Ordered By:Brennan Duque; Complete Blood Count + Differential; Status:Active; Requested for:29Qmd2188; Perform:Lab Services - Lab To Draw (Blood Test); Due:46Gfe1500;Ordered; For:Liver mass; Ordered By:Brennan Duque; Comprehensive Metabolic Panel; Status:Active; Requested for:64Qez0503; Perform:Lab Services - Lab To Draw (Blood Test); Due:96Fyg7742;Ordered; For:Liver mass; Ordered By:Brennan Duque; Ferritin, Serum; Status:Active; Requested for:86Pfg7814; Perform:Lab Services - Lab To Draw (Blood Test); Due:03Kfr3568;Ordered; For:Liver mass; Ordered By:Brennan Duque; Hepatitis A Ab IGM; Status:Active; Requested for:55Oow7822; Perform:Lab Services - Lab To Draw (Blood Test); Due:77Wuj3464;Ordered; For:Liver mass; Ordered By:Brennan Duque; Hepatitis B Surface Antibody; Status:Active; Requested for:84Hbn4274; Perform:Lab Services - Lab To Draw (Blood Test); Due:37Qmr0662;Ordered; For:Liver mass; Ordered By:Brennan Duque; Hepatitis B Surface Antigen; Status:Active; Requested for:63Mec9561; Perform:Lab Services - Lab To Draw (Blood Test); Due:50Kef1703;Ordered; For:Liver mass; Ordered By:Brennan Duque; Hepatitis C Antibody Test; Status:Active; Requested for:15Zec3318; Perform:Lab Services - Lab To Draw (Blood Test); Due:21Ohl5162;Ordered; For:Liver mass; Ordered By:Brennan Duque; Smooth Muscle Antibody Screen; Status:Active; Requested for:59Mjj4894; Perform:Lab Services - Lab To Draw (Blood Test); Due:75Wqx3709;Ordered; For:Liver mass; Ordered By:Brennan Duque; Vitamin B12, Serum; Status:Active; Requested for:82Nfh5058; Perform:Lab Services - Lab To Draw (Blood Test); Due:62Bkt7440;Ordered; For:Liver mass; Ordered By:Brennan Duque; Provider Impressions I recommended she had a complete battery of tests will get a copy of her MRI and CT scan and see her back afterwards. I informed them if more biopsies or testing needs done I may refer them to a colleague of [facility] for additional work-up. Chief Complaint Pt is [...] liver masses. She was recently hospitalized at [facility] for diffuse abdominal pain pain was described [...] (V15.82) (Z87.891) 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 power of traffic law attorney for health care (V49.89) (Z78.9) Allergies Medication [...] DAY FOR DEPRESSION Vitals Vital Signs Recorded: 37Rmv8343 09:55AM Heart Rate66 Shwksgkz317 Ttkcghlhz27 Height5 ft 7 in Uhpwwp445 lb BMI Ogewfatitp27.54 BSA Calculated2 Tobacco Useb) No O2 Hdbsuqbadv60 Physical Exam Constitutional General appearance: In no [...] RYAN MD on Jul 06 2017 2:13PM [id number] Normal [facility] GLUCOSE-POCTon 10-21-2016 Glucose mass conc 130 mg/dL High 74 - 99 [facility] Comment on above: Performed By: #### G KIM ####[facility] [id number] [place] [address] Glucose mass conc 188 mg/dL High 74 - 99 [facility] Comment on above: Performed By: #### G KIM ####[facility] [id number] [place] [address] Anti-Nuclear Antibodyon 08-08 YOLANDA Titer <1:40 Normal <1:40 [facility] Comment on above: Order Comment: Tomás bocanegra CT:Melissa Puente 10:30 vrb:TASNEEM Performed By: #### A NA ####[address] [address] Vital Signs Date Time Vital Sign Value Performing Clinician Facility 10-06-2024 11:02-0400 Body mass index (BMI) [Ratio] 32.73 kg/m2 Sherine Wheat MD Work Phone: [facility] 10-06-2024 11:02-0400 Body weight 94.8 kg Sherine Wheat MD Work Phone: [facility] 10-06-2024 11:02-0400 Diastolic blood pressure 67 mm[Hg] Sherine Wheat MD Work Phone: [facility] 10-06-2024 11:02-0400 Heart rate 75 /min Sherine Wheat MD Work Phone: [facility] 10-06-2024 11:02-0400 Respiratory rate 18 /min Sherine Wheat MD Work Phone: [facility] 10-06-2024 11:02-0400 SaO2% (BldA) [Mass fraction] 98 % Sherine Wheat MD Work Phone: [facility] 10-06-2024 11:02-0400 Systolic blood pressure 186 mm[Hg] Sherine Wheat MD Work Phone: [facility] 08-29-2023 13:41-0400 Body mass index (BMI) [Ratio] 33.25 kg/m2 Arnulfo Moomaw WOOD INSPECTOR.PEARL TECHNICIAN Work Phone: [facility] 08-29-2023 13:41-0400 Body temperature 98.01 [degF] Arnulfo Moomaw WOOD INSPECTOR.PEARL TECHNICIAN Work Phone: [facility] 08-29-2023 13:41-0400 Body weight 96.3 kg Arnulfo Moomaw WOOD INSPECTOR.PEARL TECHNICIAN Work Phone: [facility] 08-29-2023 13:41-0400 Diastolic blood pressure 78 mm[Hg] Arnulfo Moomaw WOOD INSPECTOR.PEARL TECHNICIAN Work Phone: [facility] 08-29-2023 13:41-0400 Heart rate 66 /min Arnulfo Moomaw WOOD INSPECTOR.PEARL TECHNICIAN Work Phone: [facility] 08-29-2023 13:41-0400 Respiratory rate 18 /min Arnulfo Moomaw WOOD INSPECTOR.PEARL TECHNICIAN Work Phone: [facility] 08-29-2023 13:41-0400 SaO2% (BldA) [Mass fraction] 96 % Arnulfo Dacosta WOOD INSPECTOR.PEARL TECHNICIAN Work Phone: [facility] 08-29-2023 13:41-0400 Systolic blood pressure 128 mm[Hg] Arnulfo Dacosta WOOD INSPECTOR.PEARL TECHNICIAN Work Phone: [facility] 12-20-2019 11:35-0400 BMI (Body Mass Index) 30.54 kg/m2 Brennan Duque [facility] 120 Work Phone: 12-20-2019 11:35-0400 Body Temperature 98.2 [degF] Brennan Duque [facility] 120 Work Phone: 12-20-2019 11:35-0400 Body weight 88.45 kg Brennan Duque [facility] 120 Work Phone: 12-20-2019 11:35-0400 BP Diastolic 70 mm[Hg] [facility] 120 Work Phone: 12-20-2019 11:35-0400 BP Systolic 120 mm[Hg] [facility] 120 Work Phone: 12-20-2019 11:35-0400 BSA (Body Surface Area) 2 m2 Brennan Duque [facility] 120 Work Phone: 12-20-2019 11:35-0400 Height 170.18 cm Brennan Duque [facility] 120 Work Phone: 11-30-2019 11:55-0400 BMI (Body Mass Index) 30.54 kg/m2 Brennan Duque [facility] 120 Work Phone: 11-30-2019 11:55-0400 Body weight 88.45 kg [facility] 120 Work Phone: 11-30-2019 11:55-0400 BP Diastolic 60 mm[Hg] Brennan Duque [facility] 120 Work Phone: 11-30-2019 11:55-0400 BP Systolic 122 mm[Hg] [facility] Work Phone: 11-30-2019 11:55-0400 BSA (Body Surface Area) 2 m2 Brennan Duque [facility] 120 Work Phone: 11-30-2019 11:55-0400 Height 170.18 cm Brennan Duque [facility] 120 Work Phone: 11-30-2019 11:55-0400 Pulse (Heart Rate) 66 /min Brennan Duque [facility] 120 Work Phone: 11-30-2019 11:55-0400 Pulse Oximetry 96 % Brennan Duque [facility] 120 Work Phone: Encounters Encounter Date Encounter Type Care Provider Facility Start: 01-25-2025 ambulatory Efevelioongbe Arelye Facili ty:[facility] Start: 01-17-2025 ambulatory Devi Atanaspradeep Facili ty:[facility] Start: 01-15-2025 ambulatory Devi Van Facili ty:[facility] Start: 01-11-2025 End: 01-11-2025 ambulatory Efcharliebe Arelye Facility:[facility] Start: 01-11-2025 End: 01-11-2025 ambulatory Efroseanne Mcgeee Facility:[facility] Start: 01-10-2025 End: 01-10-2025 ambulatory Devi Van Facility:[facility] Start: 01-08-2025 ambulatory Herbert Marks Facilit y:[facility] Start: 01-08-2025 End: 01-08-2025 ambulatory Devi Weeksnasov Facility:[facility] Start: 01-08-2025 End: 01-08-2025 ambulatory Efewongbe Nealghe Facility:[facility] Start: 01-03-2025 ambulatory Devi Weeksnaspradeep Facili ty:[facility] Start: 01-02-2025 End: 01-02-2025 Emergency [facility] Start: 01-02-2025 ambulatory Bobbe Arelye [facility]ili [facility] Start: 01-01-2025 End: 01-01-2025 ambulatory Devi Atanasov Facility:[facility] Start: 12-27-2024 ambulatory Devi Atanasov Facili ty:[facility] Start: 12-25-2024 End: 12-25-2024 ambulatory Devi Mickynasov Facility:[facility] Start: 12-22-2024 End: 12-22-2024 ambulatory Tiffany Marah [facility] Start: 12-20-2024 ambulatory Devi Atanasov Facili ty:[facility] Start: 12-18-2024 End: 12-18-2024 ambulatory Devi Atanasov Facility:[facility] Start: 12-18-2024 End: 12-18-2024 ambulatory Herbert Marks Facility:[facility] Start: 12-13-2024 End: 12-13-2024 ambulatory Suellen Sridevi [facility] Start: 12-08-2024 End: 12-08-2024 ambulatory Tiffany Marah [facility] Start: 12-06-2024 End: 12-06-2024 ambulatory Devi Atanasov Facility:[facility] Start: 12-04-2024 End: 12-05-2024 ambulatory Hebrert Badur Facility:[facility] Start: 11-29-2024 End: 11-29-2024 ambulatory Devi Atanasov Facility:[facility] Start: 11-27-2024 End: 11-27-2024 ambulatory Devi Atanasov Facility:[facility] Start: 11-24-2024 End: 11-24-2024 ambulatory Devi Atanasov [facility] Start: 11-22-2024 End: 11-23-2024 ambulatory Aj Andino Facility:[facility] Start: 11-20-2024 ambulatory Devi Atanasov Facili ty:[facility] Start: 11-15-2024 End: 11-15-2024 ambulatory Devi Atanasov Facility:[facility] Start: 11-13-2024 End: 11-13-2024 ambulatory Devi Atanasov Facility:[facility] Start: 11-10-2024 End: 11-10-2024 ambulatory Tiffany Chenck [facility] Start: 11-08-2024 End: 11-08-2024 ambulatory Devi Weeksnasov Facility:[facility] Start: 11-01-2024 End: 11-01-2024 ambulatory Devi Mickynasov Facility:[facility] Start: 10-31-2024 End: 10-31-2024 ambulatory Michael Isckarus [facility] Start: 10-30-2024 End: 10-30-2024 ambulatory Henri Prakashruso Facility:[facility] Start: 10-30-2024 End: 10-30-2024 ambulatory Efewongbe Oleestuardoe Facility:[facility] Start: 10-30-2024 End: 10-30-2024 ambulatory Devi Weeksnasov Facility:[facility] Start: 10-27-2024 End: 10-27-2024 ambulatory Tiffany Ramosmaryduy [facility] Start: 10-27-2024 End: 10-27-2024 ambulatory Aj Andino Facility:[facility] Start: 10-25-2024 End: 10-26-2024 ambulatory Michael Isckarus Facility:[facility] Start: 10-23-2024 End: 10-23-2024 ambulatory Devi Weeksnasov Facility:[facility] Start: 10-23-2024 End: 10-23-2024 ambulatory Claudia Rico Facility:[facility] Start: 10-19-2024 End: 10-19-2024 ambulatory Devi Mickynasov Facility:[facility] Start: 10-16-2024 End: 10-16-2024 ambulatory Devi Atanasov Facility:[facility] Start: 10-12-2024 End: 10-12-2024 ambulatory Efewongbe Oleestuardoe Facility:[facility] Start: 10-11-2024 ambulatory Devi Van Facili ty:[facility] Start: 10-09-2024 End: 10-09-2024 Orders Only Sherine Wheat MD Work Phone: Colorectal Surgery Comment on above: Bleeding from colost marcie stoma (HCC) (Primary Dx) Start: 10-06-2024 End: 10-06-2024 Emergency department patient visit NIKI BENÍTEZ Facility:[facility] Start: 10-06-2024 End: 10-06-2024 Patient encounter procedure Sherine Wheat MD Work Phone: Colorectal Surgery Comment on above: Ileostomy in place ( HCC); Crohn's colitis, with fistula (HCC); Morbid (severe) obesity due to excess calories (HCC) Start: 10-06-2024 End: 10-06-2024 ambulatory SHERINE WHEAT Facility:[facility] Start: 10-04-2024 End: 10-04-2024 ambulatory Devi Van Facility:[facility] Start: 10-03-2024 End: 10-03-2024 ambulatory Herbert Marks Facility:[facility] Start: 10-02-2024 ambulatory Devi Van Facili ty:[facility] Start: 09-29-2024 End: 09-29-2024 ambulatory Debra Benavides [facility] Start: 09-28-2024 End: 09-28-2024 ambulatory Tiffany Crystal [facility] Start: 09-27-2024 End: 09-27-2024 [facility] Start: 09-26-2024 End: 09-26-2024 ambulatory Fish Menon Facility:[facility] Start: 09-25-2024 End: 09-25-2024 ambulatory Devi Weeksnaspradeep Facility:[facility] Start: 09-21-2024 End: 09-21-2024 Emergency department patient visit Burton Chavez Facility:[facility] Start: 09-20-2024 End: 09-20-2024 [facility] Start: 09-18-2024 End: 09-18-2024 ambulatory Devi Van Facility:[facility] Start: 09-14-2024 End: 09-14-2024 ambulatory Nereyda Hubbard [facility] Start: 09-14-2024 End: 09-14-2024 ambulatory Tiffany Crystal Facility:[facility] Start: 09-13-2024 End: 09-13-2024 ambulatory Devi Van Facility:[facility] Start: 09-12-2024 End: 09-12-2024 ambulatory Suellen Laureano [facility] Start: 09-11-2024 End: 09-11-2024 ambulatory Devi Van Facility:[facility] Start: 09-07-2024 End: 09-07-2024 ambulatory Jade Castaneda [facility] Start: 09-06-2024 ambulatory Devi Van Facili ty:[facility] Start: 09-05-2024 End: 09-05-2024 ambulatory Herbert Naylorchris Facility:[facility] Start: 09-04-2024 End: 09-04-2024 ambulatory Devi Weeksnaspradeep Facility:[facility] Start: 08-31-2024 ambulatory Tiffany Rodney y:[facility] Start: 08-30-2024 End: 08-30-2024 ambulatory Devi Weeksnaspradeep Facility:[facility] Start: 08-28-2024 End: 08-28-2024 ambulatory Devi Van Facility:[facility] Start: 08-25-2024 End: 08-25-2024 ambulatory Jade Castaneda [facility] Start: 08-23-2024 End: 08-23-2024 ambulatory Deviligia Van Facility:[facility] Start: 08-21-2024 End: 08-21-2024 ambulatory Devi Van Facility:[facility] Start: 08-18-2024 ambulatory Jennifer Ortega [facility] Start: 08-18-2024 End: 08-18-2024 ambulatory Jade Castaneda [facility] Start: 08-17-2024 End: 08-18-2024 ambulatory Jennifer Ortega Facility:[facility] Start: 08-16-2024 End: 08-16-2024 ambulatory Devi Weeksnaspradeep Facility:[facility] Start: 08-14-2024 Encounter for other preprocedural examination Shiva Spencer [facility] Start: 08-14-2024 End: 08-14-2024 ambulatory Devi Weeksnaspradeep Facility:[facility] Start: 08-11-2024 End: 08-11-2024 ambulatory Jade Castaneda [facility] Start: 08-09-2024 End: 08-09-2024 ambulatory Royce JONES Facility:[facility] Start: 08-09-2024 End: 08-09-2024 ambulatory Devi Van Facility:[facility] Start: 08-08-2024 End: 08-08-2024 ambulatory Jennifer Ortega [facility] Start: 08-07-2024 End: 08-07-2024 ambulatory Devi Van Facility:[facility] Start: 08-03-2024 End: 08-03-2024 ambulatory Herbert Marks Facility:[facility] Start: 08-03-2024 End: 08-03-2024 ambulatory Tiffany Crystal Facility:[facility] Start: 08-02-2024 End: 08-02-2024 ambulatory Devi Van Facility:[facility] Start: 07-28-2024 End: 07-28-2024 ambulatory Jade Castaneda [facility] Start: 07-25-2024 ambulatory Shiva Spencer [facility] Start: 07-25-2024 End: 07-27-2024 Evaluation and management of inpatient Shiva Spencer Facility:[facility] Start: 07-25-2024 ambulatory Shiva Spencer [facility] Start: 07-22-2024 End: 07-22-2024 ambulatory Jade Castaneda Facility:[facility] Start: 07-20-2024 ambulatory Tiffany Crystal Facilit y:[facility] Start: 07-19-2024 End: 07-19-2024 ambulatory Devi Van Facility:[facility] Start: 07-19-2024 End: 07-19-2024 ambulatory Vikas Hill Facility:[facility] Start: 07-17-2024 ambulatory Devi Van Facili ty:[facility] Start: 07-13-2024 End: 07-13-2024 ambulatory Kareenroseanne Arelyshanelle Facility:[facility] Start: 07-12-2024 ambulatory Devi Van Facili ty:[facility] Start: 07-10-2024 End: 07-10-2024 ambulatory Devi Van Facility:[facility] Start: 07-06-2024 End: 07-06-2024 ambulatory Tiffany Crystal [facility] Start: 07-05-2024 End: 07-05-2024 ambulatory Devi Van Facility:[facility] Start: 07-04-2024 End: 07-04-2024 ambulatory Herbertabundio Marks Facility:[facility] Start: 07-03-2024 End: 07-03-2024 ambulatory Devi Atanaspradeep Facility:[facility] Start: 06-30-2024 End: 06-30-2024 Emergency department patient visit Mala Mcgrath Facility:[facility] Start: 06-28-2024 End: 06-28-2024 ambulatory Devi Mickynasov Facility:[facility] Start: 06-26-2024 End: 06-26-2024 ambulatory Devi Mickynaspradeep Facility:[facility] Start: 06-22-2024 End: 06-22-2024 ambulatory Shiva Spencer [facility] Start: 06-21-2024 End: 06-21-2024 ambulatory Devi Mickynaspradeep Facility:[facility] Start: 06-20-2024 End: 06-20-2024 ambulatory Suellen Laureano Facility:[facility] Start: 06-19-2024 End: 06-19-2024 ambulatory Jade Castaneda [facility] Start: 06-15-2024 End: 06-15-2024 ambulatory Nereyda Hubbard Facility:[facility] Start: 06-14-2024 End: 06-14-2024 ambulatory Devi Mickynaspradeep Facility:[facility] Start: 06-12-2024 End: 06-12-2024 ambulatory Devi Mickynaspradeep Facility:[facility] Start: 06-08-2024 End: 06-08-2024 ambulatory Tiffany Crystal [facility] Start: 06-05-2024 End: 06-05-2024 ambulatory Henri Camacho [facility] Start: 06-05-2024 End: 06-05-2024 ambulatory Devi Van Facility:[facility] Start: 06-03-2024 End: 06-03-2024 ambulatory Aj Andino Facility:[facility] Start: 06-01-2024 End: 06-01-2024 ambulatory Herbert Marks Facility:[facility] Start: 05-31-2024 End: 05-31-2024 ambulatory Devi Weeksnaspradeep Facility:[facility] Start: 05-29-2024 End: 05-29-2024 ambulatory Devi Weeksnaspradeep Facility:[facility] Start: 05-25-2024 End: 05-25-2024 ambulatory Tiffany Crystal [facility] Start: 05-24-2024 Encounter for antibo dy response examination Mala Mcgrath [facility] Start: 05-24-2024 End: 05-24-2024 ambulatory Devi Weeksnaspradeep Facility:[facility] Start: 05-23-2024 ambulatory Shiva Spencer [facility] Start: 05-22-2024 End: 05-23-2024 ambulatory Shiva Spencer Facility:[facility] Start: 05-15-2024 End: 05-15-2024 ambulatory Devi Van Facility:[facility] Start: 05-10-2024 End: 05-10-2024 ambulatory Devi Van Facility:[facility] Start: 05-09-2024 End: 05-09-2024 ambulatory Suellen Laureano [facility] Start: 05-08-2024 End: 05-08-2024 ambulatory Devi Van Facility:[facility] Start: 05-04-2024 End: 05-04-2024 ambulatory Tiffany Crystal [facility] Start: 05-03-2024 End: 05-03-2024 ambulatory Devi Mickynaspradeep Facility:[facility] Start: 05-01-2024 End: 05-01-2024 ambulatory Devi Mickynaspradeep Facility:[facility] Start: 04-26-2024 End: 04-26-2024 ambulatory Devi Van Facility:[facility] Start: 04-24-2024 End: 04-24-2024 ambulatory Devi Weeksnaspradeep Facility:[facility] Start: 04-21-2024 End: 04-21-2024 ambulatory Devi Van Facility:[facility] Start: 04-20-2024 End: 04-20-2024 ambulatory Tiffany Crystal [facility] Start: 04-17-2024 End: 04-17-2024 ambulatory Devi Weeksnaspradeep Facility:[facility] Start: 04-14-2024 End: 04-14-2024 ambulatory Henri Camacho [facility] Start: 04-12-2024 End: 04-12-2024 ambulatory Devi Weeksnasov Facility:[facility] Start: 04-11-2024 End: 04-11-2024 ambulatory Herbert Duganmiller [facility] Start: 04-10-2024 End: 04-10-2024 ambulatory Devi Weeksyohana Facility:[facility] Start: 04-06-2024 End: 04-06-2024 ambulatory Tiffany Crystal [facility] Start: 04-05-2024 End: 04-05-2024 ambulatory Devi Rehan Facility:[facility] Start: 04-03-2024 End: 04-03-2024 ambulatory Devi Weeksyohana Facility:[facility] Start: 03-29-2024 End: 03-29-2024 ambulatory Efewsethbe Arelye [facility] Start: 03-28-2024 End: 03-28-2024 ambulatory Suellenmonik Laureano [facility] Start: 03-24-2024 ambulatory Castillo Barrington [facility] Start: 03-24-2024 End: 03-26-2024 Evaluation and management of inpatient Castillo Barrington Facility:[facility] Start: 03-16-2024 End: 03-16-2024 ambulatory Nereyda Hubbard [facility] Start: 03-10-2024 ambulatory Juan Carlos Barahona ility:[facility] Start: 03-10-2024 End: 03-13-2024 Evaluation and management of inpatient Shiva Chandler Facility:[facility] Start: 03-07-2024 End: 03-07-2024 ambulatory Herbert Duganmiller [facility] Start: 03-03-2024 End: 03-03-2024 ambulatory Tiffany Marah [facility] Start: 02-24-2024 End: 02-24-2024 ambulatory Zunildayani Mcgrath [facility] Start: 02-24-2024 End: 02-24-2024 ambulatory Serenity JONES Facility:[facility] Start: 02-21-2024 End: 02-21-2024 ambulatory Efewsethbe Arelye [facility] Start: 02-17-2024 End: 02-18-2024 ambulatory Audrey Vail Facility:[facility] Start: 02-15-2024 End: 02-15-2024 ambulatory Tiffany Crystal [facility] Start: 02-01-2024 End: 02-01-2024 ambulatory Suellen Laureano [facility] Start: 01-31-2024 End: 02-01-2024 ambulatory Tonia Paris [employer] Facility:[facility] Start: 01-27-2024 End: 01-27-2024 ambulatory Tonia Paris [employer] [place] Start: 01-18-2024 [facility] Start: 01-18-2024 End: 01-18-2024 ambulatory [facility] Facility:[facility] Start: 01-17-2024 End: 01-17-2024 ambulatory Michael Barajas Facility:[facility] Start: 08-29-2023 End: 08-29-2023 Patient encounter procedure Arnulfo Dacosta APRN.CNP Work Phone: [facility] Comment on above: Great toe pain, left (Primary Dx) Start: 05-28-2023 End: 05-28-2023 Patient encounter procedure Royce Vaz Work Phone: Podiatry Comment on above: Onychomycosis (Prima ry Dx); Onychodystrophy; Pain in toe of left foot; Pain in toe of right foot; Diabetic polyneuropathy associated with type 2 diabetes mellitus (HCC); Diminished pulses in lower extremity Start: 10-23-2020 Rx Renewal Mala rodas Work Phone: [facility] Work Phone: Start: 12-20-2019 Patient encounter procedure Brennan Duque [facility] Work Phone: Start: 11-30-2019 Patient encounter procedure Brennan Duque [facility] Work Phone: Start: 07-06-2017 Ambulatory DEAN MAYES [facility] Start: 10-21-2016 End: 10-21-2016 Ambulatory Huma Ocasio Facility:[facility] Start: 10-08-2016 Ambulatory Mena Brown Fac ility:[facility] Zena Bonilla Start: 09-03-2016 Ambulatory Alireza Puente [facility] Procedures Date Procedure Procedure Detail Performing Clinician Start: 10-06-2024 Antibody screen NIKI BENÍTEZ Comment on above: Order Comment: Specimen Type: BLOOD SPEC IMEN Ordering Facility: [facility] Address: [address] [id number] Performed By: #### 1 [id number], [id number] #### [facility] CLIA [id number] [address] [place] Start: 11-30-2019 Alpha-fetoprotein [...] DTaP,Tdap,Td Vaccine (3 - Td or Tdap) [facility] Start: 10-06-2025 Complete blood count Hemoglobin/Jose tocrit [facility] Start: 08-01-2026 Creatinine measurement Serum Creatin ine [facility] Start: 01-16-2025 Pneumococcal vaccination Pneum ococcal Vaccine (4 of 4 - PPSV23 or PCV20) [facility] Start: 01-16-2025 Pneumococcal Vaccine : 50+ (4 of 4 - PCV20 or PCV21) Pneumococcal Vaccine: 50+ (4 of 4 - PCV20 or PCV21) [facility] Start: 01-16-2025 Pneumococcal Vaccine : 65+ (4 of 4 - PPSV23 or PCV20) Pneumococcal Vaccine: 65+ (4 of 4 - PPSV23 or PCV20) [facility] Start: 12-27-2024 Urine microalbumin profile DTaP,Tdap,Td Vaccine (2 - Td or Tdap) [facility] Start: 10-30-2024 End: 10-30-2024 Patient encounter procedure 10/30/2024 9:45 AM EDT Office Visit Colorectal Surgery [address] [address] Nazario Silverman, [address] [place] [address] h/o ulcerative colitis, s/p total proctocolectomy Colorectal Surgery Comment on above: h/o ulcerative colit is, s/p total proctocolectomy Start: 08-28-2024 BP Controlled (<130/80) BP Controlle d (<130/80) [facility] Start: 03-08-2024 Advance Directive Discussion Advance Directive Discussion [facility] Start: 03-08-2024 Medicare Advantage A nnual Wellness Visit Medicare Advantage Annual Wellness Visit [facility] Start: 08-30-2023 End: 09-27-2024 XR Toes - left 3 Views XR TOE AP/LAT/OBL LEFT Radiology STAT Great toe pain, left Expected: 08/30/2023, Expires: 09/27/2024 [facility] Work Phone: Comment on above: Expected: 08/30/2023 , Expires: 09/27/2024 Start: 07-17-2023 Advance Directive Discussion Advance Directive Discussion [facility] Start: 07-17-2023 Screening for osteoporosis Bone Density Screening [facility] Start: 12-25-2020 Complete blood count Hemoglobin/Jose tocrit [facility] Start: 12-25-2020 Creatinine measurement Serum Creatin ine [facility] Start: 12-16-2020 FUV, Provider: Brennan Duque, Status: Jered, Time: 10:00 AM FUV, Provider: Brennan Duque, Status: Jered, Time: 10:00 AM [facility] Work Phone: Start: 12-13-2020 Diabetic foot examination Diabetic F oot Exam [facility] Start: 10-11-2020 Covid-19 Vaccine (3 - Pfizer risk series) Covid-19 Vaccine (3 - Pfizer risk series) [facility] Start: 2018 Hepatitis B Vaccine (1 of 3 - Risk 3-dose series) Hepatitis B Vaccine (1 of 3 - Risk 3-dose series) [facility] Start: 2018 RSV Vaccine (1 - 1-d ose 60+ series) RSV Vaccine (1 - 1-dose 60+ series) [facility] Start: 2018 RSV Vaccine (1 - Ris k 60-74 years 1-dose series) RSV Vaccine (1 - Risk 60-74 years 1-dose series) [facility] Start: 11-19-2017 Hemoglobin A1c measurement HbA1C [facility] Start: 06-23-2017 Hepatitis B screening Urine Al bumin:Creatinine Ratio [facility] Start: 06-23-2017 Hepatitis B surface antibody level LDL Cholesterol [facility] Start: 09-24-2016 Screening for malign ant neoplasm of breast Mammogram Screening [facility] Start: 08-28-2016 Glaucoma screening Dilated Retinal E xam [facility] Start: 07-17-2003 Screening for malign ant neoplasm of colon [facility] Start: 1988 Zoledronic acid therapy Alpha- 1 Antitrypsin Deficiency Screening [facility] Start: 1977 Hepatitis A Vaccine (1 of 2 - Risk 2-dose series) Hepatitis A Vaccine (1 of 2 - Risk 2-dose series) [facility] Start: 1977 Shingrix Vaccine (1 of 2) Dia grix Vaccine (1 of 2) [facility] Start: 1976 Annual PCP Team Hourly Team Members irma Disease Visit Annual PCP Team Chronic Disease Visit [facility] Start: 1976 BP Controlled (<130/80) BP Controlle d (<130/80) [facility] Start: 1976 HIV screening HIV Screening [facility] Start: 1976 MMR Vaccine (1 of 2 - Risk 2-dose series) MMR Vaccine (1 of 2 - Risk 2-dose series) [facility] Start: 1968 Meningococcal B Vacc ine: Consider Based On Risk (1 of 4 - Increased Risk) Meningococcal B Vaccine: Consider Based On Risk (1 of 4 - Increased Risk) [facility] End: 05-27-2024 US.doppler Extremity arteries - bilateral for physiologic artery study [facility] Vascular Lab Routine Diabetic polyneuropathy associated with type 2 diabetes mellitus (HCC) Diminished pulses in lower extremity 1 Occurrences starting 05/28/2023 until 05/27/2024 [facility] Work Phone: Comment on above: 1 Occurrences starti ng 05/28/2023 until 05/27/2024 [facility] Immun[facility] Date Immunization Notes Care Provider Alfred henry 03-24-2016 pneumococcal conjuga te vaccine, 13 valent [email or web address] Work Phone: [facility] 12-27-2014 tetanus toxoid, redu elisa diphtheria toxoid, and acellular pertussis vaccine, adsorbed [email or web address] Work Phone: [facility] 12-25-2014 influenza, seasonal, injectable [email or web address] Work Phone: [facility] 12-20-2013 influenza, injectabl e, quadrivalent, preservative free [email or web address] Work Phone: [facility] Work Phone: 07-09-2013 pneumococcal polysaccharide vaccine, 23 valent [email or web address] Work Phone: [facility] Work Phone: Payers Date Payer Category Payer Unknown [id number] 09-10-2022 Medicaid [id number] 09-10-2022 [facility] [employer]IC[employer] [id number] 09/10/2022-Present [phone] [address] [place] [address] Medicare [id number] 09-10-2022 Medicare (Managed Care) [facility] [id number] 09-10-2022 Medicare [id number] 10-06-2021 Self-pay 10-06-2021 Unknown [id number] 07-06-2018 Medicare [id number] Unknown [id number] Unknown Unknown [id number] 2.16.840.1.966072.3.579.2. 462 Unknown [id number] 2.16.840.1.792976.3.579.2. 462 Unknown [id number] 2.16.840.1.826101.3.579.2. 462 Unknown [id number] 2.16.840.1.303360.3.579.2. 462 Unknown [id number] 2.16.840.1.057039.3.579.2. 462 Unknown [id number] 2.16.840.1.277428.3.579.2. 462 Unknown [id number] 2.16.840.1.877150.3.579.2. 462 Unknown [id number] 2.16.840.1.920262.3.579.2. 462 Unknown [id number] 2.16.840.1.020422.3.579.2. 462 Unknown [id number] 2.16.840.1.937788.3.579.2. 462 Unknown [id number] 2.16.840.1.606387.3.579.2. 462 Unknown [id number] 2.16.840.1.233045.3.579.2. 462 Unknown [id number] 2.16.840.1.441133.3.579.2. 462 Unknown [id number] 2.16.840.1.529660.3.579.2. 462 Unknown [id number] 2.16.840.1.088619.3.579.2. 462 Unknown [id number] 2.16.840.1.423069.3.579.2. 462 Unknown [id number] 2.16.840.1.796453.3.579.2. 462 Unknown [id number] 2.840.1.778742.3.579.2. 462 Unknown [id number] 2.16.840.1.345855.3.579.2. 462 Unknown [id number] 2.16.840.1.715491.3.579.2. 462 Unknown [id number] 2.16.840.1.319702.3.579.2. 462 Unknown [id number] 2.16.840.1.934617.3.579.2. 462 Unknown [id number] 2.16.840.1.237796.3.579.2. 462 Unknown [id number] 2.16.840.1.176404.3.579.2. 462 Unknown [id number] 2.16.840.1.933707.3.579.2. 462 Unknown [id number] 2.16.840.1.859784.3.579.2. 462 Unknown [id number] 2.16.840.1.687904.3.579.2. 462 Unknown [id number] 2.16.840.1.353155.3.579.2. 462 Unknown [id number] 2.16.840.1.874155.3.579.2. 462 Unknown [id number] 2.16840.1.297157.3.579.2. 462 Unknown [id number] 2.16840.1.380254.3.579.2. 462 Unknown [id number] 2.16840.1.457124.3.579.2. 462 Unknown [id number] 2.16840.1.390951.3.579.2. 462 Unknown [id number] 2.840.1.265244.3.579.2. 462 Unknown [id number] 2.840.1.660147.3.579.2. 462 Unknown [id number] 2.840.1.054147.3.579.2. 462 Unknown 65377452 2.840.1.219987.3.579.2. 462 Unknown 26219514 2.840.1.905947.3.579.2. 462 Unknown 87492262 2.840.1.760964.3.579.2. 462 Unknown 58968795 2.840.1.371078.3.579.2. 462 Unknown 31994908 2.840.1.523795.3.579.2. 462 Unknown 18633004 2.840.1.805846.3.579.2. 462 Unknown 02570154 2.840.1.944431.3.579.2. 462 Unknown 62101931 2.840.1.753416.3.579.2. 462 Unknown 24508944 2.840.1.525998.3.579.2. 462 Unknown 99000830 2.840.1.062212.3.579.2. 462 Unknown 47122016 2.16.840.1.518601.3.579.2. 462 Unknown 68992824 2.16.840.1.716537.3.579.2. 462 Unknown [id number] 2.16.840.1.824029.3.579.2. 462 Unknown [id number] 2.16.840.1.503223.3.579.2. 462 Unknown [id number] 2.16.840.1.238690.3.579.2. 462 Unknown [id number] 2.16.840.1.542038.3.579.2. 462 Unknown [id number] 2.16.840.1.611886.3.579.2. 462 Unknown [id number] 2.16.840.1.334188.3.579.2. 462 Unknown [id number] 2.16.840.1.096059.3.579.2. 462 Unknown [id number] 2.16.840.1.377385.3.579.2. 462 Unknown [id number] 2.16.840.1.180788.3.579.2. 462 Unknown [id number] 2.16.840.1.767603.3.579.2. 462 Unknown [id number] 2.16.840.1.677669.3.579.2. 462 Unknown [id number] 2.16.840.1.184860.3.579.2. 462 Unknown [id number] 2.16.840.1.871622.3.579.2. 462 Unknown [id number] 2.16.840.1.739376.3.579.2. 462 Unknown [id number] 2.16.840.1.075922.3.579.2. 462 Unknown [id number] 2.16.840.1.045555.3.579.2. 462 Unknown [id number] 2.16.840.1.668168.3.579.2. 462 Unknown [id number] 2.16.840.1.116519.3.579.2. 462 Unknown [id number] 2.16.840.1.058318.3.579.2. 462 Unknown [id number] 2.16.840.1.726385.3.579.2. 462 Unknown [id number] 2.16840.1.289612.3.579.2. 462 Unknown [id number] 2.16.840.1.387955.3.579.2. 462 Unknown [id number] 2.840.1.315666.3.579.2. 462 Unknown [id number] 2.840.1.598677.3.579.2. 462 Unknown [id number] 2.840.1.949786.3.579.2. 462 Unknown [id number] 2.840.1.641598.3.579.2. 462 Unknown [id number] 2.840.1.017706.3.579.2. 462 Unknown [id number] 2.840.1.601628.3.579.2. 462 Unknown [id number] 2.840.1.590761.3.579.2. 462 Unknown [id number] 2.840.1.158151.3.579.2. 462 Unknown [id number] 2.840.1.510130.3.579.2. 462 Unknown [id number] 2.840.1.292234.3.579.2. 462 Unknown [id number] 2.840.1.519310.3.579.2. 462 Unknown [id number] 2.840.1.841196.3.579.2. 462 Unknown [id number] 2.840.1.952658.3.579.2. 462 Unknown [id number] 2.16.840.1.636087.3.579.2. 462 Unknown [id number] 2.16.840.1.108041.3.579.2. 462 Unknown [id number] 2.16.840.1.323995.3.579.2. 462 Unknown [id number] 2.16.840.1.737921.3.579.2. 462 Unknown [id number] 2.840.1.431301.3.579.2. 462 Unknown [id number] 2.840.1.470922.3.579.2. 462 Unknown [id number] 2.840.1.853725.3.579.2. 462 Unknown [id number] 2.840.1.974837.3.579.2. 462 Unknown [id number] 2.840.1.860442.3.579.2. 462 Unknown [id number] 2.840.1.261157.3.579.2. 462 Unknown [id number] 2.840.1.717664.3.579.2. 462 Unknown [id number] 2.840.1.902000.3.579.2. 462 Unknown [id number] 2.840.1.808296.3.579.2. 462 Unknown [id number] 2.840.1.383686.3.579.2. 462 Unknown [id number] 2.840.1.332405.3.579.2. 462 Unknown [id number] 2.840.1.913727.3.579.2. 462 Unknown [id number] 2.840.1.519497.3.579.2. 462 Unknown [id number] 2.840.1.836859.3.579.2. 462 Unknown [id number] 2.840.1.295849.3.579.2. 462 Unknown [id number] 2.16.840.1.237040.3.579.2. 462 Unknown [id number] 2.16.840.1.063815.3.579.2. 462 Unknown [id number] 2.16.840.1.359950.3.579.2. 462 Unknown [id number] 2.16.840.1.509402.3.579.2. 462 Unknown [id number] 2.16.840.1.041686.3.579.2. 462 Unknown [id number] 2.840.1.031252.3.579.2. 462 Unknown [id number] 2.840.1.817890.3.579.2. 462 Unknown [id number] 2.840.1.195466.3.579.2. 462 Unknown [id number] 2.840.1.954370.3.579.2. 462 Unknown [id number] 2.840.1.225816.3.579.2. 462 Unknown [id number] 2.840.1.136057.3.579.2. 462 Unknown [id number] 2.840.1.952747.3.579.2. 462 Unknown [id number] 2.840.1.495548.3.579.2. 462 Unknown [id number] 2.840.1.809017.3.579.2. 462 Unknown [id number] 2.16.840.1.779732.3.579.2. 462 Unknown [id number] 2.16.840.1.228894.3.579.2. 462 Unknown [id number] 2.16840.1.591239.3.579.2. 462 Unknown [id number] 2.16.840.1.896538.3.579.2. 462 Unknown [id number] 2.16.840.1.569394.3.579.2. 462 Unknown [id number] 2.16.840.1.581181.3.579.2. 462 Unknown [id number] 2.16.840.1.746066.3.579.2. 462 Unknown [id number] 2.16.840.1.497376.3.579.2. 462 Unknown [id number] 2.16.840.1.421615.3.579.2. 462 Unknown [id number] 2.16.840.1.485298.3.579.2. 462 Unknown [id number] 2.16.840.1.511015.3.579.2. 462 Unknown [id number] 2.16.840.1.050973.3.579.2. 462 Unknown [id number] 2.16.840.1.763698.3.579.2. 462 Unknown [id number] 2.16.840.1.195239.3.579.2. 462 Unknown [id number] 2.16.840.1.745003.3.579.2. 462 Unknown [id number] 2.16.840.1.254783.3.579.2. 462 Unknown [id number] 2.16.840.1.739947.3.579.2. 462 Unknown [id number] 2.16.840.1.974532.3.579.2. 462 Unknown [id number] 2.16.840.1.832604.3.579.2. 462 Unknown [id number] 2.16.840.1.396530.3.579.2. 462 Unknown [id number] 2.16.840.1.326997.3.579.2. 462 Unknown [id number] 2.16.840.1.340988.3.579.2. 462 Unknown [id number] 2.16.840.1.588435.3.579.2. 462 Unknown [id number] 2.16.840.1.086676.3.579.2. 462 Unknown [id number] 2.16.840.1.022575.3.579.2. 462 Unknown [id number] 2.16.840.1.566746.3.579.2. 462 Unknown [id number] 2.16.840.1.411833.3.579.2. 462 Unknown [id number] 2.16.840.1.301694.3.579.2. 462 Unknown [id number] 2.16.840.1.460926.3.579.2. 462 Unknown [id number] 2.16.840.1.814779.3.579.2. 462 Unknown [id number] 2.16.840.1.393350.3.579.2. 462 Unknown [id number] 2.16.840.1.870466.3.579.2. 462 Unknown [id number] 2.16.840.1.229714.3.579.2. 462 Unknown [id number] 2.16.840.1.723174.3.579.2. 462 Unknown [id number] 2.16.840.1.656897.3.579.2. 462 Unknown [id number] 2.16.840.1.045272.3.579.2. 462 Unknown [id number] 2.16.840.1.909117.3.579.2. 462 Unknown [id number] 2.16.840.1.639411.3.579.2. 462 Unknown [id number] 2.16.840.1.934168.3.579.2. 462 Unknown [id number] 2.16.840.1.885471.3.579.2. 462 Unknown [id number] 2.16.840.1.427178.3.579.2. 462 Unknown [id number] 2.16.840.1.946367.3.579.2. 462 Unknown [id number] 2.16.840.1.558639.3.579.2. 462 Unknown [id number] 2.16.840.1.530963.3.579.2. 462 Unknown [id number] 2.16.840.1.569944.3.579.2. 462 Unknown [id number] 2.16.840.1.655974.3.579.2. 462 Unknown [id number] 2.16.840.1.408635.3.579.2. 462 Unknown [id number] 2.16.840.1.744524.3.579.2. 462 Unknown [id number] 2.16.840.1.706173.3.579.2. 462 Unknown [id number] 2.16.840.1.317281.3.579.2. 462 Unknown [id number] 2.16.840.1.475591.3.579.2. 462 Unknown [id number] 2.16.840.1.815301.3.579.2. 462 Unknown [id number] 2.16.840.1.938500.3.579.2. 462 Unknown [id number] 2.16.840.1.699201.3.579.2. 462 Unknown [id number] 2.16.840.1.978568.3.579.2. 462 Unknown [id number] 2.16.840.1.628757.3.579.2. 462 Unknown [id number] 2.16.840.1.252254.3.579.2. 462 Unknown [id number] 2.16.840.1.189521.3.579.2. 462 Unknown [id number] 2.16.840.1.078042.3.579.2. 462 Unknown [id number] 2.16.840.1.220575.3.579.2. 462 Unknown [id number] 2.16.840.1.974942.3.579.2. 462 Unknown [id number] 2.16.840.1.653763.3.579.2. 462 Unknown [id number] 2.16.840.1.781969.3.579.2. 462 Unknown 68182711 2.16.840.1.876328.3.579.2. 462 Unknown [id number] 2.16.840.1.956119.3.579.2. 462 Unknown [id number] 2.16.840.1.946626.3.579.2. 462 Unknown [id number] 2.16.840.1.979963.3.579.2. 462 Unknown [id number] 2.16.840.1.904201.3.579.2. 462 Unknown [id number] 2.16840.1.539003.3.579.2. 462 Unknown 67395210 2.16.840.1.913584.3.579.2. 462 Unknown [id number] 2.16.840.1.509461.3.579.2. 462 Unknown [id number] 2.16.840.1.479064.3.579.2. 462 Unknown [id number] 2.16.840.1.077980.3.579.2. 462 Unknown [id number] 2.16840.1.852312.3.579.2. 462 Unknown [id number] 2.16840.1.130383.3.579.2. 462 Social History Date Type Detail Facility Start: 08-18-2013 End: 05-28-2023 Former smoker Former smoker [facility] Start: 08-18-2013 End: 08-29-2023 Tobacco smoking status NHIS Ex-smoker [facility] Work Phone: Start: 05-06-1992 End: 05-06-2012 History of tobacco use Current smoker [facility] Work Phone: Start: 05-06-1992 End: 05-06-2012 History of tobacco use Cigarette Smoker [facility] Work Phone: Start: 08-18-2013 End: 08-29-2023 Tobacco use and exposure Smokeless tobacco non-user [facility] Work Phone: Start: 05-28-2023 End: 08-29-2023 Alcohol intake Current non-drinker of alcohol (finding) [facility] Start: 08-19-2017 End: 05-28-2023 Tobacco use panel [facility] Retired 04/06/2019 PHQ Score 4 [facility] Start: 1960 Sex Assigned At Not on file [facility] NEGATED: Highlighted row - - -[facility] [address] Work Phone: Medical Equipment [...] BLOOD SUGAR(S)5-6 DAILY. DX: DIABETES. INSULIN: YES [id number] Start: 09-30-2015 Inject 4-6 times daily [id number] Start: 04-14-2016 1 Each one time a week. [id number] Start: 08-08-2019 Functional Status Date Assessment Result Facility 08-23-2017 Are you deaf, or do you have serious difficulty hearing No 08/23/2017 8:47 PM Coleen Majano (Rn) (Hist), RN No [facility] 08-23-2017 Are you blind, or do you have serious difficulty seeing, even when wearing glasses No 08/23/2017 8:47 PM Coleen Majano (Rn) (Hist), RN No [facility] 08-23-2017 Do you have serious difficulty walking or climbing stairs No 08/23/2017 8:47 PM Coleen MajanoRn) (Hist), RN No [facility] 08-23-2017 Do you have difficul ty dressing or bathing No 08/23/2017 8:47 PM EDT Coleen Rowley (Rn) (Hist), RN No [facility] 08-23-2017 Because of a physica l, mental, or emotional condition, do you have difficulty doing errands alone such as visiting a physician's office or shopping No 08/23/2017 8:47 PM EDT Coleen Rowley (Rn) (Hist), RN No [facility] NEGATED: Highlighted row Functional performance Functional status health issues are not documented Disease [facility] Work Phone: Mental Status Date Assessment Result Facility 08-23-2017 Because of a physical, mental, or emotional condition, do you have serious difficulty concentrating, remembering, or making decisions No 08/23/2017 8:47 PM EDT Coleen Rowley (Rn) (Hist), RN No [facility] NEGATED: Highlighted row Cognitive function [Interpretation] Cognitive status health issues are not documented Disease [facility] Work Phone: Clinical Notes 12-27-2015 to 09-30-2024 Sherine Wheat MD - 09/30/2024 2:12 AM Sherine Kuo MD - 09/30/2024 2:12 AM Arnulfo Crowley APRN.PEARL TECHNICIAN - 08/29/2023 1:47 PM Royce Payne - 05/28/2023 9:30 AM EDT Note Date & Type Note Facility 09-30-2024 History and physi carrol note HPI Ashley Méndez is a 64 year old female here today for followup of complications from ulcerative colitis. SP total proctocolectomy in [place]. Subsequent referral to [facility] 06/15/2008 Thai Huang [...] PRESCRIPTION Convatec - Juanita Cohesive Ostomy Seals #[id number] Dx: V45.89; V44.2 COMPOUNDED PRESCRIPTION Convatec - Esteem 10" drainable ostomy pouch #[id number] Dx: V45.89; V44.2 COMPOUNDED PRESCRIPTION PEREZ & [...] taking: Reported on 05/28/2023) COMPOUNDED PRESCRIPTION [facility]. Dx: E11.65. On insulin. COMPOUNDED PRESCRIPTION CONVATEC [...] Victoza [Liraglutid* Other: See Comments Acute pancreatitis Aigedim-Buk-Jph Red* GI Upset Social History Tobacco Use [...] (coronary artery disease) 08/18/2013 Dr. Cresencio Menon, [facility] Chest pain at rest 08/21/2013 Dr. Wright, Pain Management CHF (congestive heart failure) ([facility]) 08/21/2013 Chronic abdominal wound infection CKD (chronic kidney disease) stage 3, GFR 30-59 ml/min ([facility]) 08/21/2013 CKD (chronic kidney disease), stage II 08/21/2013 COPD (chronic obstructive pulmonary disease) ([facility]) 08/18/2013 Dr. Cherelle Lazo, pulmonary [...] done in there presence of a female protector plate attacher. General: no acute distress Wheel chair bound [...] I shall confer with my partners at [facility] main -Colon and rectal surgery -Enterostomal therapy -GI/hepatology Images of the stoma, the perineum, and the abdominal wall pannus will be uploaded. Sherine Wheat MD DATE: 09/30/24 TIME: 2:12 AM [facility] 09-30-2024 History and physi carrol note HPI Ashley Méndez is a 64 year old female here today for followup of complications from ulcerative colitis. SP total proctocolectomy in [place]. Subsequent referral to [facility] 06/15/2008 Thai Huang MD Lapartomy for recurrent [...] PRESCRIPTION Convatec - Juanita Cohesive Ostomy Seals #[id number] Dx: V4; V44.2 COMPOUNDED PRESCRIPTION Convatec - Esteem 10" drainable ostomy pouch #[id number] Dx: V4; V44.2 COMPOUNDED PRESCRIPTION PEREZ & [...] taking: Reported on 05/28/2023) COMPOUNDED PRESCRIPTION [facility]. Dx: E11.65. On insulin. COMPOUNDED PRESCRIPTION CONVATEC [...] Victoza [Liraglutid* Other: See Comments Acute pancreatitis Gwscjtn-Tow-Urk Red* GI Upset Social History Tobacco Use [...] (coronary artery disease) 08/18/2013 Dr. Cresencio Menon, [facility] Chest pain at rest 08/21/2013 Dr. Wright, Pain Management CHF (congestive heart failure) ([facility]) 08/21/2013 Chronic abdominal wound infection CKD (chronic kidney disease) stage 3, GFR 30-59 ml/min ([facility]) 08/21/2013 CKD (chronic kidney disease), stage II 08/21/2013 COPD (chronic obstructive pulmonary disease) ([facility]) 08/18/2013 Dr. Cherelle Lazo, pulmonary Depression with anxiety 08/21/2013 Fistula Gastroparesis History of Meniere's disease 1993 surgical treatment HTN (hypertension) 08/18/2013 Hyperlipidemia 08/18/2013 Hypoxemia 12/18/2013 Dr. Cherelle Lazo, pulmonary Migraine 08/21/2013 Neck pain ANKITA on CPAP 08/21/2013 Pulmonary hypertension, moderate to severe ([facility]) 08/21/2013 S/P total colectomy 08/18/2013 Ulcerative colitis, ileostomy. Type II or unspecified type diabetes mellitus without mention of complication, uncontrolled 08/18/2013 Ulcerative colitis ([facility]) PAST SURGICAL HISTORY Procedure Laterality [...] done in there presence of a female protector plate attacher. General: no acute distress Wheel chair bound [...] I shall confer with my partners at [facility] main -Colon and rectal surgery -Enterostomal therapy -GI/hepatology Images of the stoma, the perineum, and the abdominal wall pannus will be uploaded. Sherine Wheat MD DATE: 09/30/24 TIME: 2:12 AM documented in this encounter [facility] 08-29-2023 History of Presen t illness Narrative This note was created using Readzriter. Subjective Ashley Méndez is a 63 year [...] - XR TOE AP/LAT/OBL LEFT Arnulfo Dacosta APRN.PEARL TECHNICIAN documented in this encounter [facility] 05-28-2023 History of Presen t illness Narrative [...] States her last A1c (this month at [place]) was 7.2. No change in medications or [...] Wright, Pain Management CHF (congestive heart failure) ([facility]) 08/21/2013 Chronic abdominal wound infection CKD (chronic kidney disease) stage 3, GFR 30-59 ml/min ([facility]) 08/21/2013 CKD (chronic kidney disease), stage II 08/21/2013 COPD (chronic obstructive pulmonary disease) ([facility]) 08/18/2013 Dr. Cherelle Lazo, pulmonary Depression with anxiety 08/21/2013 Fistula Gastroparesis History of Meniere's disease 1994 surgical treatment HTN (hypertension) 08/18/2013 Hyperlipidemia 08/18/2013 Hypoxemia 12/18/2013 Dr. Cherelle Lazo, pulmonary Migraine 08/21/2013 Neck pain ANKITA on CPAP 08/21/2013 Pulmonary hypertension, moderate to severe ([facility]) 08/21/2013 S/P total colectomy 08/18/2013 Ulcerative colitis, ileostomy. Type II or unspecified type diabetes mellitus without mention of complication, uncontrolled 08/18/2013 Ulcerative colitis ([facility]) Current Outpatient Medications Medication Sig [...] a week. Oral Medication Containers ([facility]) [facility] Use for MTX syringes loperamide (IMODIUM) 2 [...] PRESCRIPTION Convatec - Juanita Cohesive Ostomy Seals #[id number] Dx: V45.89; V44.2 COMPOUNDED PRESCRIPTION Convatec - Esteem 10" drainable ostomy pouch #[id number] Dx: V45.89; V44.2 COMPOUNDED PRESCRIPTION PEREZ & [...] by mouth once daily. COMPOUNDED PRESCRIPTION [facility]. Dx: E11.65. On insulin. COMPOUNDED PRESCRIPTION CONVATEC [...] Victoza [Liraglutid* Other: See Comments Acute pancreatitis Fuuelah-Bzt-Rmk Red* GI Upset PAST SURGICAL HISTORY Procedure [...] Objective: Patient presents to clinic ambulating in [facility] Constitutional: Pt is a well developed [...] last few years. documented in this encounter [facility] 12-27-2015 History of Past i llness Narrative Problem Noted Date Diagnosed Date Resolved Date Lower back pain 12/27/2015 01/10/2016 Pain in right elbow 01/15/2015 03/24/19 17 Open wound of abdominal wall , anterior, complicated 05/22/2014 07/05/2015 documented as of this encounter (statuses as of 05/28/2023) [facility] Onychomycosis- Primary Dermatophytosis of nail Onychodystrophy Other specified disease of nail Pain in toe of left foot Pain in limb Pain in toe of right foot Pain in limb Diabetic polyneuropathy associated with type 2 diabetes mellitus (HCC) Diminished pulses in lower extremity Other symptoms involving cardiovascular system documented [facility] Diagnosis Great toe pain, left- Primary [facility] Diagnosis Ileostomy in place (HCC) Ileostomy status Crohn's colitis, with fistula (HCC) Morbid (severe) obesity due to excess calories ([facility]) [facility] Diagnosis Bleeding from colostomy stoma (HCC)- Primary Other complication of colostomy or enterostomy [facility] this [facility] Outpatient Procedure (Routine) - Authorized Specialty Diagnoses / Procedures Referred By Contac t Referred To Contact [facility] Diagnoses Diabetic polyneuropathy associated with type 2 diabetes mellitus (HCC) Diminished pulses in lower extremity Procedures PVR ANK PRESS MARCEL [facility] NON-INVAS PHYSIOLOGIC STD EXTREMITY ART [address] [place] [address] [facility] [place] [address] [place] [address] Referral ID Status Reason Start Date Expiration Date Visits Requested Visits Authorized [id number] Authorized Auto-Generat ed Referral 05/28/2023 05/27/2024 1 1 [facility] ([facility]ative)* Diagnostic Procedure Only (Urgent) - Pending Review Specialty Diagnoses / Procedures Referred By Contac t Referred To Contact XR IMAGING Diagnoses Great toe pain, left Procedures XR TOE AP/LAT/OBL LEFT RADEX TOE MINIMUM 2 VIEWS Arnulfo Dacosta, WOOD INSPECTOR.PEARL TECHNICIAN [address] [place] [address] [place] [address] Referral ID Status Reason Start Date Expiration Date Visits Requested Visits Authorized [id number] Pending Review Auto-Generat ed Referral 08/30/2023 09/27/2024 1 1 [facility] Summary Purpose Family History No [...] DATE CREATED AUTHOR AUTHOR'S ORGANIZ ATION 08/31/2017 [facility] ical Center DATE CREATED AUTHOR AUTHOR'S ORGANIZ ATION 09/01/2017 [facility] DATE CREATED AUTHOR AUTHOR'S ORGANIZ ATION 09/01/2017 [facility] DATE CREATED AUTHOR AUTHOR'S ORGANIZ ATION 06/18/2020 [facility] DATE CREATED AUTHOR AUTHOR'S ORGANIZ ATION 10/12/2024 [facility] DATE CREATED AUTHOR AUTHOR'S ORGANIZ ATION 10/15/2024 [facility] DATE CREATED AUTHOR AUTHOR'S ORGANIZ ATION 01/11/2025 [facility] Source Comments (unrecognize d section and content) In the event this informatio n is protected by the Federal Confidentiality of Alcohol and Drug Abuse Patient Records regulations: The Federal rules restrict any use of the information to criminally investigate or prosecute any alcohol or drug abuse patient.[facility] the event this information is protected by the Federal Confidentiality of Alcohol and Drug Abuse Patient Records regulations: The Federal rules restrict any use of the information to criminally investigate or prosecute any alcohol or drug abuse patient.[facility] the event this information is protected by the Federal Confidentiality of Alcohol and Drug Abuse Patient Records regulations: The Federal rules restrict any use of the information to criminally investigate or prosecute any alcohol or drug abuse patient.[facility] the event this information is protected by the Federal Confidentiality of Alcohol and Drug Abuse Patient Records regulations: The Federal rules restrict any use of the information to criminally investigate or prosecute any alcohol or drug abuse patient.[facility] Reason for Visit (unrecogniz ed section and content) Reason Comments New Pain Ingrown Toenail Reason Comments left toe pain Fell 2 days ago Care Teams (unrecognized sec tion and content) Water Reuse Program Manager Relationship Specialty Start Date End Date Mala Mcgrath MD [address] [facility] [address] [place], [place] [phone] PCP - General Internal Medicine 07/29/17 Royce Vaz [address] [place] [address] Podiatry 12/27/19 Kieran Rico MD [address] [place], [place] [id number] Vp Clinical Research Nephrology 12/27/19 Aj Andino DO [address] [phone] Referring Gastroenterology 02/10/[address] [place] [id number] Registered Dietitian Nutrition 02/18/22 Water Reuse Program Manager Relationship Specialty Start Date End Date Mala Mcgrath MD [address] [place] [address] PCP - General Internal Medicine 07/29/17 Royce Vaz [address] [place] [address] Podiatry 12/27/19 Kieran Rico MD [address] [place] [address] Vp Clinical Research Nephrology 12/27/19 Aj Andino DO [facility] [address] [place] [address] Referring Gastroenterology 02/10/[address] [place] [id number] Registered Dietitian Nutrition 02/18/22 Water Reuse Program Manager Relationship Specialty Start Date End Date Mala Mcgrath MD [address] [place] [address] PCP - General Internal Medicine 07/29/17 Royce Vaz [address] [place] [address] Podiatry 12/27/19 Kieran Rico MD [address] [place] [address] Vp Clinical Research Nephrology 12/27/19 Aj Andino DO [address] [place], [place] [address] Referring Gastroenterology 02/10/[address] [place] [id number] Registered Dietitian Nutrition 02/18/22 Water Reuse Program Manager Relationship Specialty Start Date End Date Mala Mcgrath MD [address] [place] [place] [address] PCP - General Internal Medicine 07/29/17 Rocye Vaz [address] [place] [place] [address] Podiatry 12/27/19 Kieran Rico MD [address] [facility] [address] [place], [place] [id number] Vp Clinical Research Nephrology 12/27/19 Aj Andino DO [address] [place], [place] [address] Referring Gastroenterology 02/10/[address] [place] [address] [phone] Registered Dietitian Nutrition 02/18/22 FOR RECORDS PERTAINING [...] BASED ON THE PRIMARY CLINICAL RECORDS. [employer] [facility]. provides no warranty or guarantee of the accuracy or completeness of information in this document.
--- NOTE | 2025-01-13 17:43 | PCM.HP.STD ---
[facility] - General General Date of Admission: 01/13/25 Date of Service: 01/13/25 HPI Narrative ASHLEY MÉNDEZ, is a 64 F who presents with high output from her ostomy. Patient had been seen just a couple weeks ago for similar and received some IV fluids and did better and was doing fine at home up until yesterday where she started having large volume from her ostomy. She was getting dizzy upon sitting and standing and given her history of having high output ostomy, she presented to the emergency room. CT scan in the emergency room was unremarkable. She did have a potassium of 5.5 and creatinine of 2.1. Baseline creatinine was around 1.88 from January 10. She received Zofran, Bentyl, IV fluids, morphine, Kayexalate and fentanyl in the emergency room.] [facility] Medical History (Updated 01/13/25 @ 17:[address] Shiva Chandler, ) Left wrist sprain Bilateral lower extremity edema History of left common carotid artery stent placement History of stress test Immunity status testing Chronic kidney disease, stage 3b History of CAD (coronary artery disease) History of chronic kidney disease History of diabetes mellitus CAD (coronary artery disease) Dehydration Falls Hypoxic respiratory failure Hypercapnic respiratory failure Fatigue Low back pain Abnormality of gait and mobility Polyneuropathy Insulin pump titration Presence of insulin pump Health care maintenance Essential tremor Dementia History of stress test Fungal dermatitis Herpes genitalia Encounter for insertion of venous access port Post-menopausal Rash Back pain Arthritis Ambulates with cane History of renal disease High cholesterol Dietary restriction History of pain when walking History of echocardiogram Chronic kidney disease (CKD) stage G4/A2, severely decreased glomerular filtration rate (GFR) between 15-29 mL/min/1.73 square meter and albuminuria creatinine ratio between 30-299 mg/g Chronic kidney disease (CKD) stage G4/A1, severely decreased glomerular filtration rate (GFR) between 15-29 mL/min/1.73 square meter and albuminuria creatinine ratio less than 30 mg/g Ingrown toenail Neuropathy Hyperglycemia due to diabetes mellitus Frequent falls Tremor Depression Chronic pain Rheumatoid arthritis Congestive heart failure (CHF) Lumbar spondylosis Greater trochanteric bursitis CKD (chronic kidney disease) stage 3, GFR 30-59 ml/min Malaise and fatigue Vitamin B12 deficiency History of CAD (coronary artery disease) Memory loss Anxiety and depression Degenerative disc disease at L5-S1 level CAD (coronary artery disease) Cellulitis, abdominal wall Left shoulder pain Gastroparesis Vitamin D deficiency CKD (chronic kidney disease), stage IV High output ileostomy MGUS (monoclonal gammopathy of unknown significance) Elevated anti-tissue transglutaminase (tTG) IgA level Ileostomy present Short bowel syndrome Loss of hearing Wears glasses History of COVID-19 Anxiety Insulin dependent diabetes mellitus Walker as ambulation aid Fatty liver Migraine headache Hx of diabetic gastroparesis Gastric reflux Former smoker BiPAP (biphasic positive airway pressure) dependence Hypertension Cardiology follow-up encounter Myoclonic jerking Chronic narcotic use Avascular necrosis of bone of left hip Chronic back pain Non-alcoholic fatty liver disease Liver mass Ulcerative colitis Nonalcoholic steatohepatitis Chronic respiratory failure Smoking greater than 20 pack years Obesity Chronic respiratory failure with hypoxia, on home O2 therapy Diabetic gastroparesis Secondary pulmonary arterial hypertension Chronic diastolic (congestive) heart failure Type 2 diabetes mellitus with diabetic polyneuropathy BMI 31.0-31.9,adult Depression with anxiety Arthritis Menieres disease Hyperlipidemia Psoriasis Obstructive sleep apnea COPD (chronic obstructive pulmonary disease) FCHL (familial combined hyperlipidemia) DM2 (diabetes mellitus, type 2) Home Medications Medication Instructions Recorded Last Taken Type hyoscyamine sulfate 0.125 mg tablet 0.125 mg PO BID-QID PRN dyspepsia 12/23/23 07/18/24 History fluticasone propionate 50 2 spray intranasal DAILY allergies 01/04/24 01/12/25 Rx mcg/actuation nasal #16 grams spray,suspension (Flonase Allergy Relief) triamcinolone acetonide 0.1 % 1 applic topical DAILY PRN 02/17/24 07/24/24 History topical ointment psoriasis nitroglycerin 0.4 mg sublingual 0.4 mg sublingual Q5-15M PRN chest 02/24/24 Unknown Rx tablet pain #25 tabs evolocumab 140 mg/mL subcutaneous 140 mg subcut Q2W #6 mL 02/29/24 01/06/25 Rx pen injector (Geraldine Collins) dicyclomine 10 mg capsule 10 mg PO BID PRN stomach 03/11/24 01/12/25 History pantoprazole 40 mg tablet,delayed 40 mg PO BID GERD #60 tabs 03/29/24 01/12/25 Rx release (Protonix) cholecalciferol (vitamin D3) 1,250 1,250 mcg PO .monthly vit #14 caps 04/05/24 01/12/25 Rx mcg (50,000 unit) capsule buprenorphine 10 mcg/hour weekly 1 patch transdermal Q7D 04/24/24 01/06/25 History transdermal patch (Butrans) albuterol sulfate 90 mcg/actuation 2 puff inhalation Q4-6H PRN SOB 04/26/24 Unknown Rx aerosol inhaler #8.5 grams amlodipine 5 mg tablet 5 mg PO QDAY #30 tabs 05/15/24 01/12/25 Rx metoprolol tartrate 25 mg tablet 25 mg PO BID #180 tabs 06/14/24 01/12/25 Rx metoprolol tartrate 50 mg tablet 50 mg PO BID #180 tabs 06/14/24 01/12/25 Rx fluticasone fur. 100 mcg-umeclid 1 inh inhalation QDAY #14 ea 08/09/24 01/12/25 Rx 62.5 mcg-vilant 25 mcg inhalat.powder (Trelegy Ellipta) insulin pump cart,auto,BT,G6/7 #45 ea 09/11/24 Unknown Rx (Omnipod 5 G6-G7 Pods (Gen 5) subcutaneous cartridge) tramadol 50 mg tablet 50 mg PO BID PRN pain 09/12/24 Unknown History insulin lispro 200 unit/mL (3 mL) 220 unit (1.1 mL) subcut QDAY 09/14/24 Unknown Rx subcutaneous pen (Humalog KwikPen diabetes #99 mL U-200 Insulin) galantamine 16 mg 24 hr 16 mg PO QAM #30 caps 10/03/24 01/12/25 Rx capsule,extended release pregabalin 100 mg capsule 100 mg PO BID #60 caps 10/03/24 01/12/25 Rx primidone 50 mg tablet 50 mg PO BID #60 tabs 10/03/24 01/12/25 Rx rimegepant 75 mg disintegrating 75 mg PO DAILY PRN migraine 10/03/24 Unknown Rx tablet (Nurtec ODT) headache #16 tabs acetaminophen 500 mg tablet 1,000 mg PO Q8 PRN pain 10/12/24 Unknown History Dexcom G7 Sensor (blood-glucose #9 ea 10/17/24 Unknown Rx sensor) Handicap Placard #1 ea 10/17/24 Unknown Rx isosorbide dinitrate 30 mg tablet 30 mg PO BID heart #60 tabs 09/05/25 Unknown Rx duloxetine 60 mg capsule,delayed 60 mg PO BID mental health #60 caps 11/15/24 01/12/25 Rx release lamotrigine 200 mg tablet 200 mg PO DAILY mood #30 tabs 11/15/24 01/12/25 Rx mirtazapine 7.5 mg tablet 7.5 mg PO QHS mental health #30 11/15/24 01/12/25 Rx tabs atorvastatin 80 mg tablet 80 mg PO QHS CHOLESTEROL LOWERING 12/08/24 01/12/25 Rx #90 tabs valacyclovir 500 mg tablet 500 mg PO Q12H PRN HSV #7 tabs 12/18/24 Unknown Rx diphenoxylate-atropine 2.5 1 tab PO TID PRN diarrhea #90 tabs 01/01/25 Unknown Rx mg-0.025 mg tablet (Lomotil) aspirin 81 mg tablet,delayed 81 mg PO DAILY heart health #30 01/11/25 01/12/25 Rx release tabs clopidogrel 75 mg tablet 75 mg PO DAILY anti platelet #30 01/11/25 01/12/25 Rx TABLETS Allergy/AdvReac Type Severity Reaction Status Date / Time cinnamon (Cinnamon) Allergy Severe Anaphylaxis Verified 01/13/25 09:50 Influenza Virus Vaccines Allergy Severe Shortness Verified 01/13/25 09:50 of breath liraglutide (From Victoza) Allergy Severe Anaphylaxis Verified 01/13/25 09:50 ciprofloxacin Allergy Intermediate Swelling Verified 01/13/25 09:50 metformin (From Glucophage) Allergy Mild Nausea Verified 01/13/25 09:50 metronidazole (From Flagyl) Allergy Hives Verified 01/13/25 09:50 Metronidazole HCl (From Allergy Hives Verified 01/13/25 09:50 Flagyl) Penicillins Allergy Hives Verified 01/13/25 09:50 Sulfa (Sulfonamide Allergy Hives Verified 01/13/25 09:50 Antibiotics) ranolazine AdvReac Nausea/Vom/ Verified 01/13/25 09:50 Diarrhea [id number] Reductase AdvReac Nausea/joints Verified 01/13/25 09:50 Inhibitor (Xywmlxm-Ciu-Ujo ache Reductase Inhibitor) Family History Mother CVA (cerebral vascular accident) Diabetes Brother Heart disease of CAD at 65 Myocardial infarction Pancreatitis Father Cancer lymphomia Lymphoma Grandmother Myocardial infarction of [place] in her 70s Sister COPD (chronic obstructive pulmonary disease) Surgical History Hx of CABG History of lateral meniscus repair of right knee History of vascular access device History of colonoscopy History of esophagogastroduodenoscopy (EGD) History of appendectomy History of coronary artery stent placement H/O total hip arthroplasty Status post total hip replacement, left History of cardiac catheterization History of History of cholecystectomy H/O coronary artery bypass surgery (05/18/12) History of coronary artery stent placement (01/12/18) H/O sinus surgery history closed fissure Ileostomy status H/O colectomy left thumb surgery H/O total hysterectomy ileostomy Social History household members: spouse and none Smoking Status: Former smoker quit date: 03/08/12 how long ago did patient quit smoking: quit in 2012; 0.5-1ppd x 30yrs alcohol intake: never substance use type: does not use diet: diabetic caffeine: No eating out: 1-3 times/week what type of physical activity do you participate in: none seatbelt use: always do you feel safe at home: Yes PAULETTE CALDWELL Narrative Complaining of right knee pain. She has had knee pain for a while but this seems to be more intense than it has been previously. She denies any falls that preceded this. She has been reported to have arthritis as well as a meniscal tear in that knee. All review of systems were negative except as mentioned above in the history of present illness and the other review of systems. Vital Signs Vital Signs Vital Signs: 01/13/25 09:47 01/13/25 10:36 01/13/25 11:46 Temperature 37.4 C H Temperature Source Axillary Pulse Rate 105 H 18 L Pulse Rate [Lying] 102 H Pulse Rate [Sitting (for 1 minute prior to obtaining)] 109 H Pulse Rate [Standing (for 1 minute prior to obtaining)] 120 H Respiratory Rate 18 99 H Blood Pressure 133/72 H 127/68 H Blood Pressure [Lying] 120/60 Blood Pressure [Sitting (for 1 minute prior to obtaining)] 111/70 Blood Pressure [Standing (for 1 minute prior to obtaining)] 93/60 Blood Pressure Mean 92 87 Blood Pressure Mean [Lying] 80 Blood Pressure Mean [Sitting (for 1 minute prior to obtaining)] 83 Blood Pressure Mean [Standing (for 1 minute prior to obtaining)] 71 Pulse Ox 96 97 Oxygen Delivery Method Room Air Room Air 01/13/25 13:00 01/13/25 13:53 01/13/25 13:54 Temperature Temperature Source Pulse Rate 103 H 109 H Pulse Rate [Lying] Pulse Rate [Sitting (for 1 minute prior to obtaining)] Pulse Rate [Standing (for 1 minute prior to obtaining)] 109 H Respiratory Rate Blood Pressure 126/80 H 66/49 L Blood Pressure [Lying] Blood Pressure [Sitting (for 1 minute prior to obtaining)] Blood Pressure [Standing (for 1 minute prior to obtaining)] 66/49 L Blood Pressure Mean 95 54 Blood Pressure Mean [Lying] Blood Pressure Mean [Sitting (for 1 minute prior to obtaining)] Blood Pressure Mean [Standing (for 1 minute prior to obtaining)] 54 Pulse Ox 95 Oxygen Delivery Method Room Air 01/13/25 14:00 01/13/25 16:00 01/13/25 16:53 Temperature 37.4 C H Temperature Source Pulse Rate 103 H 103 H 103 H Pulse Rate [Lying] Pulse Rate [Sitting (for 1 minute prior to obtaining)] Pulse Rate [Standing (for 1 minute prior to obtaining)] Respiratory Rate 99 H Blood Pressure 147/59 H 138/84 H 138/84 H Blood Pressure [Lying] Blood Pressure [Sitting (for 1 minute prior to obtaining)] Blood Pressure [Standing (for 1 minute prior to obtaining)] Blood Pressure Mean 88 102 102 Blood Pressure Mean [Lying] Blood Pressure Mean [Sitting (for 1 minute prior to obtaining)] Blood Pressure Mean [Standing (for 1 minute prior to obtaining)] Pulse Ox 94 98 98 Oxygen Delivery Method Room Air Room Air Weight Weight: 95.4 kg Body Mass Index (BMI) 32.9 Physical Exam Const alert Constitutional Narrative: Uncomfortable. Afebrile. General Appearance: cooperative HEENT normocephalic, head/scalp atraumatic and hearing grossly normal bilaterally Resp normal respiratory effort, no retractions, no use of accessory muscles and clear to auscultation bilaterally Cardio regular rate, regular rhythm, S1 normal heart sound and S2 normal heart sound GI normal to inspection, nondistended, normoactive bowel sounds, soft to palpation, non-tender and non-distended GI Narrative: Colostomy in left lower quadrant filled with a liquid stool. Extremity Extremity Narrative: Right knee is tender to palpation but no effusions. No Schneider's cyst noted. No warmth. Was tender over laterally and medially. Neuro Sensorium / Orientation: awake and alert Psych affect normal Results Lab / Micro Data 01/13/25 09:53 01/13/25 09:53 Labs: Laboratory Results - last 24 hr 01/13/25 09:53: WBC 20.7 H, RBC 5.11, Hgb 12.4, Hct 41.1, MCV 80.4 L, MCH 24.3 L, MCHC 30.2 L, RDW Std Deviation 49.1 H, RDW Coeff of Jan 16.9 H, Plt Count 251, MPV 11.1, Immature Gran % (Auto) 0.600, Neut % (Auto) 72.4 H, Lymph % (Auto) 14.9 L, [place] % (Auto) 3.9, Eos % (Auto) 7.8 H, Baso % (Auto) 0.4, Absolute Neuts (auto) 15.0 H, Absolute Lymphs (auto) 3.09, Nucleated RBC % 0, Sodium 136, Potassium 5.5 H, Chloride 102, Carbon Dioxide 21.8, Anion Gap 12, BUN 41 H, Creatinine 2.10 H, Estim Creat Clear Calc 31.25 L, Est GFR (MDRD) Non-Af 26 L, BUN/Creatinine Ratio 19.5, Glucose 171 H, Calcium 10.0, Total Bilirubin 0.39, AST 17, ALT 8, Alkaline Phosphatase 148 H, Total Protein 7.2, Albumin 3.7, Globulin 3.6, Albumin/Globulin Ratio 1.0 Micro: Microbiology 01/13/25 10:46 Stool Enteric Bacteriology - Final 01/13/25 10:46 Stool Clostridioides difficile (PCR) - Final Rhythm Strip Rhythm Strip: Sinus Rhythm Rate: 98 Ectopy: None Imaging Radiology Impression Abdomen/Pelvis CT 01/13/25 14:00 IMPRESSION: No acute abnormality. Reading [facility] Assessment & Plan Assessment/Plan (1) Acute hyperkalemia: PLAN: Secondary to RALPH Patient had received Kayexalate in the emergency room. No EKG changes noted. Follow-up labs (2) High output ileostomy: PLAN: Patient underwent an enteric panel as well as C. difficile that were negative. Has been refractory despite her low Mattila which we will continue. Will add loperamide as well. Given that symptoms are still ongoing also continue with IV fluids. (3) Acute kidney injury: PLAN: Secondary to high output ileostomy IV fluids No need for renal replacement therapy at this time. Monitor PLAN: Plan Hypertension: Continue with amlodipine, metoprolol Hyperlipidemia: Continue atorvastatin Chronic pain: Continue with buprenorphine Diabetes mellitus type 2: Continue with metformin. Sliding scale insulin. Obesity class I: Complicates care and recovery VTE prophylaxis with enoxaparin CODE STATUS: Addressed with the patient. Patient wishes to be full code Charges/Coding Visit Charges Inpatient E&M: 50965 Init Hosp L2
[2025-01-13] MEDS: 0.9% Normal Saline (1000mL) 1,000 ML 150 ML IV (18:38)
[2025-01-13] MEDS: Buprenorphine 10 MCG PATCH.TDWK 1 PATCH TD (20:34)
[2025-01-13] MEDS: Budesonide Respules 0.5 MG/2 ML AMPUL.NEB. INHALATION (22:55)
[2025-01-13] MEDS: Isosorbide DN 30 MG Tablet PO (23:11)
[2025-01-14] VITALS (10 sets, daily range): BP systolic 95–149; BP diastolic 45–69; PULSE 72–89; RESP 16–20; TEMP 36.4–36.9; O2SAT 91–99
[2025-01-14] MEDS: 0.9% Normal Saline (1000mL) 1,000 ML 150 ML IV (01:29)
[2025-01-14] MEDS: Diphenoxylate/Atrop 1 Tablet PO (03:05)
[2025-01-14 03:06] LABS: Color, Urine Yellow (Yellow); Glucose, Dipstick Normal (Normal); Ketone-Dipstick Negative (Negative); Leukocyte Esterase-Dipstick 25 /ul (Negative); Nitrite-Dipstick Negative (Negative); Occult Blood-Urine Negative /ul (Negative); Protein-Dipstick 100 mg/dl (Negative); Specific Gravity, Urine 1.020 (1.002-1.030); Urine Bilirubin Dipstick Negative (Negative)
[2025-01-14 03:30] LABS: Mucous, Urine 0 SEEN /hpf (<or=2+); Red Blood Cells-Urine 0 SEEN /hpf (0-5)
[2025-01-14 04:16] LABS: Squamous Epithelial Cells - UA 0-5 SEEN /hpf (5-10); Transitional Epithelial - Ur 0-5 SEEN /hpf (0-5)
[2025-01-14 06:09] LABS: Hematocrit 30.7 % (37-47); Hemoglobin 9.4 g/dL (12.0-15.0); Immature Granulocytes Count 0.050 X10^3/uL (0.0-0.0); Mean Corp Hgb Conc 30.6 g/dL (32-36); Mean Corpuscular Volume 80.8 fL (81-99); Mean Platelet Vol. 11.3 fl (6.2-12.0); NRBC Flagged by Analyzer 0 % (0-5); Platelet Count 191 K/mm3 (150-450); RBC Distribution Width CV 17.2 % (11.6-14.6); RBC Distribution Width SD 50.5 fl (35.1-43.9); Red Blood Count 3.80 M/mm3 (4.2-5.4); White Blood Count 13.8 K/mm3 (4.4-11.0)
[2025-01-14 06:30] LABS: Anion Gap 8 (5-15); BUN 38 mg/dL (4-19); BUN/Creat Ratio 18.1 RATIO (10-20); Calcium,Total 8.2 mg/dL (7.6-11.0); Carbon Dioxide 20.2 mmol/L (21.0-32.0); Chloride 108 mmol/L (98-108); Estimated Creatinine Clearance 30.39 ml/min (50-250); Glucose 103 mg/dL (70-99); Potassium 5.1 mmol/L (3.3-5.1)
[2025-01-14] MEDS: Aspirin E.C. 81 MG Tablet PO (08:48)
[2025-01-14] MEDS: Fluticasone 0.05% 1 SPRAY NASAL.SRY 2 SPRAY NASAL (08:49)
--- NOTE | 2025-01-14 11:59 | RAD_ITS ---
PROCEDURE: RIGHT KNEE 1 OR 2 VIEWS 01/14/2025 REASON FOR EXAM: R KNEE PAIN SINCE YESTERDAY TECHNIQUE: Procedure Code: RADK Modality: DX Procedure: KNEE 1 OR 2 VIEWS Laterality: Right COMPARISON: 10/30/2024 FINDINGS: No acute fracture or dislocation appreciated. Alignment is anatomic. Mild tricompartmental degenerative arthrosis with mild medial compartment joint space narrowing, subchondral sclerosis, and small marginal osteophytes. Chondrocalcinosis in the lateral joint space. Nonspecific moderate suprapatellar joint effusion and soft tissue swelling. Scattered atherosclerotic vascular calcifications. RAD/Knee 1 or 2 Views IMPRESSION: 1. No acute fracture or dislocation appreciated. 2. Mild tricompartmental degenerative arthrosis. 3. Nonspecific moderate suprapatellar joint effusion. Reading Location: [id number]
--- NOTE | 2025-01-14 11:59 | PCM.PN.HOSP ---
Subjective Subjective Reports feeling a little better with fluids and that her ostomy output is slowing down, reports some right knee pain since yesterday when she moves it, fell a few weeks ago but denies any injury yesterday, reports she is post have a knee replacement however due to her medical comorbidities this was canceled Objective Data Objective Data Vital Signs: Vital Signs Temp Pulse Resp BP Pulse Ox O2 Del Method O2 Flow Rate 97.6 F L 78 16 149/60 H 99 Room Air 99 01/14/25 11:01/14/25 11:01/14/25 11:01/14/25 11:01/14/25 11:01/14/25 11:01/14/25: Oxygen Flow Rate (L/min) 99 Oxygen Delivery Method Room Air Weight: 95.4 kg Body Mass Index (BMI) 33.0 Intake & Output: Intake and Output for Last 24 Hours 01/12/25 01/13/25 01/14/25 23:59 23:59 23:59 Intake Total 1999 / 1999 2350 / 2350 Output Total 1600 / 1600 900 / 900 Balance 400 / 400 1450 / 1450 Lab / Micro Data 01/14/25 05:32 01/14/25 05:32 Labs: Laboratory Results - last 24 hr 01/13/25 23:20: POC Glucose 134 H 01/14/25 02:50: Urine Color Yellow, Urine Clarity Clear, Urine pH 6.0, Ur Specific Pearson 1.020, Urine Protein 100 H, Urine Glucose (UA) Normal, Urine Ketones Negative, Urine Occult Blood Negative, Urine Nitrite Negative, Urine Bilirubin Negative, Urine Urobilinogen 1 H, Ur Leukocyte Esterase 25 H, Urine RBC 0 SEEN, Urine WBC 0-5 SEEN, Ur Squamous Epith Cells 0-5 SEEN, Ur Transition Epith Cell 0-5 SEEN, Urine Bacteria 2+, Hyaline Casts 5-10 SEEN, Urine Mucus 0 SEEN 01/14/25 05:32: WBC 13.8 H, RBC 3.80 L, Hgb 9.4 L, Hct 30.7 L, MCV 80.8 L, MCH 24.7 L, MCHC 30.6 L, RDW Std Deviation 50.5 H, RDW Coeff of Jan 17.2 H, Plt Count 191, MPV 11.3, Immature Gran % (Auto) 0.400, Neut % (Auto) 62.7, Lymph % (Auto) 17.7 L, [place] % (Auto) 5.8, Eos % (Auto) 13.3 H, Baso % (Auto) 0.1, Absolute Neuts (auto) 8.7 H, Absolute Lymphs (auto) 2.44, Nucleated RBC % 0, Sodium 136, Potassium 5.1, Chloride 108, Carbon Dioxide 20.2 L, Anion Gap 8, BUN 38 H, Creatinine 2.12 H, Estim Creat Clear Calc 30.39 L, Est GFR (MDRD) Non-Af 25 L, BUN/Creatinine Ratio 18.1, Glucose 103 H, Calcium 8.2 01/14/25 06:13: POC Glucose 98 01/14/25 11:01: POC Glucose 133 H Micro: Microbiology 01/13/25 10:46 Stool Enteric Bacteriology - Final 01/13/25 10:46 Stool Clostridioides difficile (PCR) - Final Radiography Diagnostic Testing: Radiology Impression Abdomen/Pelvis CT 01/13/25 14:00 IMPRESSION: No acute abnormality. Reading Location: [facility] Rhythm Strip Rhythm Strip: Sinus Rhythm Rate: 98 Ectopy: None Physical Exam Narrative General: Alert, oriented, no apparent distress HEENT: Atraumatic, normocephalic Eyes: Anicteric, normal conjunctiva, extraocular movements grossly intact Neck: Supple Respiratory: No significant wheezes or rhonchi appreciated, normal respiratory effort Cardiovascular: Regular rate and rhythm GI: Soft, nontender, nondistended Extremities: No significant pitting edema Musculoskeletal: Moving all extremities, reports right knee pain when palpating over it but seems less tender when able to focus elsewhere, there is no point tenderness or focal red area, does not appear erythematous or swollen compared to the left Neuro: No overt focal neurological deficits Skin: No rashes appreciated Psych: Cooperative Assessment & Plan Assessment/Plan (1) High output ileostomy: PLAN: Plan 64-year-old female history of ulcerative colitis with ileostomy, gastroparesis, CKD, diabetes with insulin pump, GERD, COPD, depression, coronary artery disease who presented [facility] ED 01/13/2025 due to increased ileostomy output, nausea, and abdominal cramping. Patient found to have a leukocytosis of 20.7 with no bandemia, hyperkalemia with a potassium of 5.5 and a creatinine of 2.1 up from 1.883 days prior. Patient had negative C. difficile and negative enteric panel. Patient had orthostats and did have orthostatic hypotension and was symptomatic despite IV fluids so hospitalist contacted for admission. # High output ileostomy with fluid depletion causing orthostatic hypotension - IV fluids improving patient symptomatically - Enteric panel and C. difficile negative - Continue home medications and patient added on loperamide - She does feel ostomy output is slowing down # Acute on chronic right knee pain in setting of chronic pain - Continue home buprenorphine patch - As needed medications, will add topical arthritis cream - Reports falling 3 weeks ago but notes pain started mostly yesterday, will obtain x-ray - PT/OT - Was supposed to have surgery on that knee however surgery was deferred due to her multiple medical comorbidities - Supportive care # Leukocytosis - Patient seem to be very hemoconcentrated as hemoglobin dropped from 12.4 down to 9.4 and white count also dropped down to 13.8 platelet count dropped as well just with IV fluids - C. difficile and enteric panel negative - Patient afebrile - Not started on empiric antibiotics given no source of infection, improving independent of antibiotics - CT abdomen pelvis with no acute abnormality - Denies any shortness of breath - UA with bacteria but only 0-5 white cells, leuk esterase and bili 25 and urine nitrate negative, UA not consistent with UTI though urine culture was sent, follow culture and can always start antibiotics if patient develops fever or urine culture has sufficient colony count that would indicate true infection #Type 2 diabetes mellitus - Order placed for patient's home insulin pump # CKD stage IV - Creatinine 2.12 today, yesterday 2.1, appears that she has a fairly variable baseline but in December was also 2.2 in November was 2.03, suspect patient is at or near baseline, continue IV fluids and supportive care for volume depletion -Avoid nephrotoxic agents -Daily BMPs #Hx COPD -Continue home inhalers -Incentive spirometer #Hypertension - Continue patient's home medications as blood pressure allows #Hx of CAD -With history of coronary artery bypass and stenting -Continue home medications #ANKITA - Per neurology note patient did not tolerate BiPAP # Hyperkalemia–resolved - Potassium 5.5 in the ED, came down to Kayexalate and IV fluids #DVT ppx: Lovenox subcu Terrie Olson MD Charges/Coding Visit Charges Inpatient E&M: 16335 Subs Hosp L2
[2025-01-14] MEDS: 0.9% Normal Saline (1000mL) 1,000 ML 50 ML IV ×2 (12:23→20:48)
[2025-01-14] MEDS: Budesonide Respules 0.5 MG/2 ML AMPUL.NEB. INHALATION ×2 (12:40→19:52)
--- NOTE | 2025-01-14 17:28 | NURSING ---
pt requesting iv morphine for pain. pt unable to stay awake during assessment. pt able to move right leg off bed and back onto bed independently. pt stated pain in knee is a 8
[2025-01-14] MEDS: Arthritis Pain Compound 60 CLICK TUBE TOPICAL (23:00)
[2025-01-15] VITALS (11 sets, daily range): BP systolic 120–146; BP diastolic 40–57; PULSE 59–78; RESP 16–22; TEMP 36.6–37.1; O2SAT 94–98
[2025-01-15] MEDS: Budesonide Respules 0.5 MG/2 ML AMPUL.NEB. INHALATION ×2 (07:02→20:04)
[2025-01-15 07:29] LABS: Hematocrit 30.0 % (37-47); Hemoglobin 8.9 g/dL (12.0-15.0); Immature Granulocytes Count 0.060 X10^3/uL (0.0-0.0); Mean Corp Hgb Conc 29.7 g/dL (32-36); Mean Corpuscular Volume 82.2 fL (81-99); Mean Platelet Vol. 11.6 fl (6.2-12.0); NRBC Flagged by Analyzer 0 % (0-5); Platelet Count 174 K/mm3 (150-450); RBC Distribution Width CV 17.2 % (11.6-14.6); RBC Distribution Width SD 51.0 fl (35.1-43.9); Red Blood Count 3.65 M/mm3 (4.2-5.4); White Blood Count 10.3 K/mm3 (4.4-11.0)
[2025-01-15 07:35] LABS: Anion Gap 9 (5-15); BUN 31 mg/dL (4-19); BUN/Creat Ratio 17.6 RATIO (10-20); Calcium,Total 8.6 mg/dL (7.6-11.0); Carbon Dioxide 19.6 mmol/L (21.0-32.0); Chloride 111 mmol/L (98-108); Estimated Creatinine Clearance 36.60 ml/min (50-250); Glucose 92 mg/dL (70-99); Potassium 4.3 mmol/L (3.3-5.1)
[2025-01-15] MEDS: Aspirin E.C. 81 MG Tablet PO (08:45)
[2025-01-15] MEDS: Fluticasone 0.05% 1 SPRAY NASAL.SRY 2 SPRAY NASAL (08:49)
[2025-01-15] MEDS: Arthritis Pain Compound 60 CLICK TUBE TOPICAL ×2 (08:53→21:30)
--- NOTE | 2025-01-15 10:05 | PCM.PN.HOSP ---
Subjective Subjective Leukocytosis is resolving, and enteric pathogen panel and C. difficile are negative, urine culture is pending Objective Data Objective Data Vital Signs: Vital Signs Temp Pulse Resp BP Pulse Ox O2 Del Method O2 Flow Rate 98.3 F 74 16 121/57 H 97 Room Air 99 01/15/25 09:04 01/15/25 09:04 01/15/25 09:04 01/15/25 09:04 01/15/25 09:04 01/15/25 09:04 01/14/25 11: Oxygen Flow Rate (L/min) 99 Oxygen Delivery Method Room Air Weight: 210 lb 5.136 oz Body Mass Index (BMI) 33.0 Intake & Output: Intake and Output for Last 24 Hours 01/14/25 01/15/25 01/16/25 03:59 03:59 03:59 Intake Total 3000 / 3000 2120.83 / 2120.83 Output Total 2000 / 2000 700 / 700 250 / 250 Balance 1000 / 1000 1420.83 / 1420.83 -250 / -250 Lab / Micro Data 01/15/25 06:46 01/15/25 06:46 Labs: Laboratory Results - last 24 hr 01/14/25 11:01: POC Glucose 133 H 01/14/25 16:03: POC Glucose 141 H 01/14/25 22:59: POC Glucose 112 H 01/15/25 06:21: POC Glucose 107 H 01/15/25 06:46: WBC 10.3, RBC 3.65 L, Hgb 8.9 L, Hct 30.0 L, MCV 82.2, MCH 24.4 L, MCHC 29.7 L, RDW Std Deviation 51.0 H, RDW Coeff of Jan 17.2 H, Plt Count 174, MPV 11.6, Immature Gran % (Auto) 0.600, Neut % (Auto) 54.2, Lymph % (Auto) 23.3, [place] % (Auto) 5.1, Eos % (Auto) 16.6 H, Baso % (Auto) 0.2, Absolute Neuts (auto) 5.6, Absolute Lymphs (auto) 2.40, Nucleated RBC % 0, Sodium 139, Potassium 4.3, Chloride 111 H, Carbon Dioxide 19.6 L, Anion Gap 9, BUN 31 H, Creatinine 1.76 H, Estim Creat Clear Calc 36.60 L, Est GFR (MDRD) Non-Af 32 L, BUN/Creatinine Ratio 17.6, Glucose 92, Calcium 8.6 Micro: Microbiology 01/13/25 10:46 Stool Enteric Bacteriology - Final 01/13/25 10:46 Stool Clostridioides difficile (PCR) - Final Radiography Diagnostic Testing: Radiology Impression Knee X-Ray 01/14/25 11:59 IMPRESSION: 1. No acute fracture or dislocation appreciated. 2. Mild tricompartmental degenerative arthrosis. 3. Nonspecific moderate suprapatellar joint effusion. Reading Location: [facility] Rhythm Strip Rhythm Strip: Sinus Rhythm Rate: 98 Ectopy: None Physical Exam Narrative General: Alert, Oriented x3, Cooperative, No apparent distress HEENT: Atraumatic, PERRLA, EOMI, Normocephalic Oral: Moist Mucosa Neck: Supple, No JVD Lungs: Diminished, Normal air movement, No rhonchi, No wheeze, No rales Cardiovascular: Regular rate, Regular Rhythm, Normal S1, Normal S2, No murmurs Abdomen: Soft, Non Tender, Non-Distended, No Hepato-splenomegaly, ileostomy Extremities: No edema, Capillary Refill Less than 3 Seconds Skin: No rashes, No breakdown Musculoskeletal: No Tenderness to Palpation of Joints or Extremities Neurological: No focal neurological deficits, moves all extremities Psych/Mental Status: Normal Affect, Appropriate Assessment & Plan Assessment/Plan (1) High output ileostomy: PLAN: Plan 1. High output ileostomy with fluid depletion causing orthostatic hypotension/leukocytosis with anemia - IV fluids improving patient symptomatically -Had a colectomy for ulcerative colitis - Enteric panel and C. difficile negative - Continue home medications and patient added on loperamide - She does feel ostomy output is slowing down 01/15/2025: Renal function has improved with IV fluids, baseline renal function is around 1.7. Infectious workup so far is negative and leukocytosis has resolved. Unclear as to where her anemia is coming from she did have occult positive stool back in March, however she does have CKD indicating anemia of chronic disease plus she is being evaluated for MGUS by oncology and she is on a PPI for GERD. This could be dilutional as well therefore we will just monitor 2. Essential HTN/CAD status post CABG – Continue with her home blood pressure medications – Will monitor make adjustments as necessary 3. DM2/CKD 4 – Continue with home insulin pump – Accu-Chek – Stable – Renal functions back to baseline 4. Acute on chronic right knee pain in setting of chronic pain - Continue home buprenorphine patch - As needed medications, will add topical arthritis cream - Reports falling 3 weeks ago but notes pain started mostly yesterday, will obtain x-ray - PT/OT - Was supposed to have surgery on that knee however surgery was deferred due to her multiple medical comorbidities - Supportive care 5. Hx COPD -Continue home inhalers -Incentive spirometer 6. ANKITA - Per neurology note patient did not tolerate BiPAP DVT: Lovenox Charges/Coding Visit Charges Inpatient E&M: 58266 Subs Hosp L2
--- NOTE | 2025-01-15 14:14 | CASEMGMT ---
RN CM Assessment Face to Face with patient for initial transition planning/care coordination assessment. RN CM introduced self and role at [facility], pt voices understanding. Pt is A&Ox4 and is resting comfortably in bed and is calm. Care providers, pharmacy, and demographics verified. Admitting dx: High output ileostomy PCP: Alcides Specialists: RENNY, [facility], (Endo), Sina (GI), Kendrick (Neuro), Jenn (Oncology), Jacky (Nephro), Janice (Ortho Surgeon) Preferred Pharmacy: [facility]. Pt states that she gets her rxs there and does not have them delivered Insurance: [email or web address] A/B, [employer], [employer]. Community Resources: Pt reports that she is active with and that her CM is Lauren Vann. Pt states that she has a medical alert system and 7 home delivered meals per week. TC to Lauren ([phone]). No answer, VM left. Pt also states that she is active with Palliative Care through [facility] [employer]. TC to [facility] [employer] who reports that they are active with the pt through her [employer] plan and that they plan to call the pt on Wednesday to schedule a follow up visit. Pt states understanding. Prescription Benefit: Yes LNOK: Azucena Borrero (SO of 21 years) Living Arrangements: Pt lives alone currently as her SO is living with her father to help care for him. Pt lives in a ground level apartment with a flat entrance. Pt reports that Azucena only lives 5 minutes away ADLs/IADLs: Pt reports that she tries to remain as independent as possible and that Azucena is able to provide support when needed. 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 Current 6-Click score is 20. Pt denies the need for therapy. Transportation: Self, SO. Denies concerns DME: Medical alert system, FWW, WC, Shower bench, grab bars, cane, CBGM with sensors, insulin pump, backup BGM with sufficient supplies, and history of home oxygen through [employer]. Pt states that she followed up with her PCP and that she did not need additional oxygen any longer. Pt has a pulse ox and inhaler. Pt states that she is independent with ostomy care and denies needs or concerns. HHC/SNF: Reports skilled HH history but that she did not feel like it helped and denies current HH needs. Pt has a history at [facility]. Pt’s goal: Home Plan: Home with [facility] Pall[facility] Care and [facility] resources. Pt states that she plans to follow up with her specialists as an OP. Anticipate DC home with the support of the pt's SO once medically ready. Pt denies the need for skilled HH or OP Tx now. Pt denies further questions or concerns at this time. Report given to YURI MOTA CM. Parminder Cr RN, CM
[2025-01-15] MEDS: 0.9% Normal Saline (1000mL) 1,000 ML 50 ML IV (14:26)
[2025-01-15] MEDS: Isosorbide DN 30 MG Tablet PO (21:34)
[2025-01-16 00:27] VITALS: BP 132/57; PULSE 61; RESP 16; TEMP 36.6; O2SAT 96
[2025-01-16 05:36] VITALS: BP 164/66; PULSE 59; RESP 16; TEMP 36.5; O2SAT 98
[2025-01-16 06:45] LABS: Hematocrit 30.1 % (37-47); Hemoglobin 9.1 g/dL (12.0-15.0); Immature Granulocytes Count 0.050 X10^3/uL (0.0-0.0); Mean Corp Hgb Conc 30.2 g/dL (32-36); Mean Corpuscular Volume 81.8 fL (81-99); Mean Platelet Vol. 11.4 fl (6.2-12.0); NRBC Flagged by Analyzer 0 % (0-5); Platelet Count 167 K/mm3 (150-450); RBC Distribution Width CV 17.1 % (11.6-14.6); RBC Distribution Width SD 50.5 fl (35.1-43.9); Red Blood Count 3.68 M/mm3 (4.2-5.4); White Blood Count 8.7 K/mm3 (4.4-11.0)
[2025-01-16] MEDS: Budesonide Respules 0.5 MG/2 ML AMPUL.NEB. INHALATION (07:06)
[2025-01-16 07:15] VITALS: PULSE 76; RESP 18
[2025-01-16 07:18] LABS: Anion Gap 8 (5-15); BUN 22 mg/dL (4-19); BUN/Creat Ratio 13.9 RATIO (10-20); Calcium,Total 8.2 mg/dL (7.6-11.0); Carbon Dioxide 20.8 mmol/L (21.0-32.0); Chloride 110 mmol/L (98-108); Estimated Creatinine Clearance 40.01 ml/min (50-250); Glucose 90 mg/dL (70-99); Potassium 4.5 mmol/L (3.3-5.1)
[2025-01-16 07:52] VITALS: O2SAT 93
[2025-01-16 08:20] VITALS: BP 137/58; PULSE 56; RESP 18; TEMP 36.2; O2SAT 96
--- NOTE | 2025-01-16 08:22 | DCINST_ITS ---
Discharge Instructions DC O2, CPAP, BIPAP needs Home O2 Discharge instructions: No Dressing / Incision Discharge Activity: Return to Normal Activity Dressing / Incision Call your doctor if you observe: Fever of 101 or Higher, Shortness of breath, Dizziness, Fainting spells, Swelling in the ankles, Chest pain and Increased palpitations (irregular heartbeat) Follow Up Care Test Results: Test results from this visit will be discussed in further detail at your follow- up appointment, if applicable. Discharge Plan Admission Admit Date/Time: 01/13/25 16:47 Attending Provider: Juan Carlos Gerber Primary Care Provider: Mala Mcgrath Consulting Providers: Shiva Chandler; Terrie Olson Discharge Orders/Prescriptions Prescriptions: New loperamide 2 mg Capsule 2 mg PO Q6 20 Days Qty: 80 0RF Continued nitroglycerin 0.4 mg tablet, sublingual 0.4 mg sublingual Q5-15M PRN (Reason: chest pain) Qty: 25 3RF Rx Instructions: do not exceed 3 doses per episode hyoscyamine sulfate 0.125 mg tablet 0.125 mg PO BID-QID PRN (Reason: dyspepsia) galantamine 16 mg capsule,ext rel. pellets 24 hr 16 mg PO QAM Qty: 30 6RF Rx Instructions: Administer with breakfast. Nurtec ODT 75 mg tablet,disintegrating 75 mg PO DAILY PRN (Reason: migraine headache) Qty: 16 6RF primidone 50 mg tablet 50 mg PO BID Qty: 60 6RF pregabalin 100 mg capsule 100 mg PO BID Qty: 60 5RF Humalog KwikPen Insulin 200 unit/mL (3 mL) insulin pen 220 unit subcut QDAY Qty: 99 1RF Patient Comments: turned pump off on Wednesday07/22/24 Rx Instructions: via insulin pump tramadol 50 mg tablet 50 mg PO BID PRN (Reason: pain) Trelegy Ellipta 100-62.5-25 mcg blister with device 1 inh inhalation QDAY Qty: 14 0RF acetaminophen 500 mg tablet 1,000 mg PO Q8 PRN (Reason: pain) triamcinolone acetonide 0.1 % ointment 1 applic topical DAILY PRN (Reason: psoriasis) buprenorphine [Butrans] 10 mcg/hour patch weekly 1 patch transdermal Q7D dicyclomine 10 mg Capsule 10 mg PO BID PRN (Reason: stomach) fluticasone propionate [Flonase Allergy Relief] 50 mcg/actuation spray,suspension 2 spray intranasal DAILY Qty: 16 3RF Rx Instructions: administer into each nostril Repatha SureClick 140 mg/mL pen injector 140 mg subcut Q2W Qty: 6 3RF pantoprazole [Protonix] 40 mg tablet,delayed release (DR/EC) 40 mg PO BID Qty: 60 11RF cholecalciferol (vitamin D3) 1,250 mcg (50,000 unit) capsule 1,250 mcg PO .monthly Qty: 14 1RF albuterol sulfate 90 mcg/actuation HFA aerosol inhaler 2 puff INHALATION Q4-6H PRN (Reason: SOB) Qty: 8.5 0RF amlodipine 5 mg tablet 5 mg PO QDAY Qty: 30 11RF metoprolol tartrate 25 mg tablet 25 mg PO BID Qty: 180 3RF Rx Instructions: Take with 50 mg tablet to = 75 mg BID metoprolol tartrate 50 mg tablet 50 mg PO BID Qty: 180 3RF Rx Instructions: Take with 25 mg tablet to = 75 mg BID (DME) Omnipod 5 G6-G7 Pods (Gen 5) Cartridge See Rx Instructions .Route Qty: 45 1RF Rx Instructions: change every 48 hours (DME) Dexcom G7 Sensor Device See Rx Instructions .Route Qty: 9 3RF Rx Instructions: change every 10 days (DME) Handicap Placard See Rx Instructions .ROUTE .MEDSUPPLY Qty: 1 0RF Rx Instructions: As directed, length of time 3 years isosorbide dinitrate 30 mg tablet 30 mg PO BID Qty: 60 11RF duloxetine 60 mg capsule,delayed release(DR/EC) 60 mg PO BID Qty: 60 2RF lamotrigine 200 mg tablet 200 mg PO DAILY Qty: 30 2RF mirtazapine 7.5 mg tablet 7.5 mg PO QHS Qty: 30 2RF atorvastatin 80 mg tablet 80 mg PO QHS Qty: 90 1RF Patient Comments: cholesterol valacyclovir 500 mg tablet 500 mg PO Q12H PRN (Reason: HSV) Qty: 7 0RF diphenoxylate-atropine [Lomotil] 2.5-0.025 mg tablet 1 tab PO TID PRN (Reason: diarrhea) Qty: 90 2RF aspirin 81 mg tablet,delayed release (DR/EC) 81 mg PO DAILY Qty: 30 11RF clopidogrel 75 mg tablet 75 mg PO DAILY Qty: 30 11RF Referrals / Follow Up: Mala Mcgrath MD [Primary Care Provider, Internal Medicine] FriendAj DO [Med Staff - Active Staff, Gastroenterology] - Within 1 Month Disposition Disposition (needs filled in before D/C Order can be placed): Home, Self Care
[2025-01-16 09:01] LABS: Ferritin 74 ng/mL (22-378); Iron 20 ug/dL (50-170); Iron Binding Capacity,Unsat 217 ug/dL (228-428)
[2025-01-16 09:05] LABS: Iron Binding Capacity,Total 237 ug/dL (250-450)
[2025-01-16] MEDS: Arthritis Pain Compound 60 CLICK TUBE TOPICAL (09:45)
[2025-01-16] MEDS: Fluticasone 0.05% 1 SPRAY NASAL.SRY 2 SPRAY NASAL (09:46)
[2025-01-16] MEDS: Isosorbide DN 30 MG Tablet PO (09:46)
[2025-01-16] MEDS: Aspirin E.C. 81 MG Tablet PO (09:46)
[2025-01-16 09:47] VITALS: PULSE 56
--- NOTE | 2025-01-16 10:25 | CASEMGMT ---
SVETLANA RAINEY NOTE: Discharge order is in. SVETLANA RAINEY to room. Pt resting in bed. Pt denies having any discharge needs or concerns. She states her girlfriend will be taking her home. She is aware to f/u with her PCP and also to f/u with Dr Friend in one month. She is aware Rx for loperamide [facility] to [facility]. She states if [facility] does not get that delivered to her home, that she has some if it still @ home that she can use until it is delivered. Call placed to [facility] @ and spoke to Carlo to notify her pt is discharging home. Discharge instructions and summary e-mailed to her @ [email or web address] DC instructions faxed to [facility]. Mitchel IVAN RN CM
--- NOTE | 2025-01-16 10:37 | DS.PCM_ITS ---
Providers Date of Admission: 01/13/25 Primary Care Physician: Dr. Mala Mcgrath MD Reason For Visit: HIGH OUTPUT ILEOSTOMY Diagnosis Discharge Diagnosis (1) High output ileostomy: Status: Chronic Code(s): R19.8 - Other specified symptoms and signs involving the digestive system and abdomen; Z93.2 - Ileostomy status Medications at Discharge Home Medications hyoscyamine sulfate 0.125 mg tablet 0.125 mg PO BID-QID PRN dyspepsia 12/23/23 fluticasone propionate 50 mcg/actuation nasal spray,suspension (Flonase Allergy Relief) 2 spray intranasal DAILY allergies #16 grams 01/04/24 triamcinolone acetonide 0.1 % topical ointment 1 applic topical DAILY PRN psoriasis 02/17/24 nitroglycerin 0.4 mg sublingual tablet 0.4 mg sublingual Q5-15M PRN chest pain #25 tabs 02/24/24 evolocumab 140 mg/mL subcutaneous pen injector (Repatha SureClick) 140 mg subcut Q2W #6 mL 02/29/24 dicyclomine 10 mg capsule 10 mg PO BID PRN stomach 03/11/24 pantoprazole 40 mg tablet,delayed release (Protonix) 40 mg PO BID GERD #60 tabs 03/29/24 cholecalciferol (vitamin D3) 1,250 mcg (50,000 unit) capsule 1,250 mcg PO .monthly vit #14 caps 04/05/24 buprenorphine 10 mcg/hour weekly transdermal patch (Butrans) 1 patch transdermal Q7D 04/24/24 albuterol sulfate 90 mcg/actuation aerosol inhaler 2 puff inhalation Q4-6H PRN SOB #8.5 grams 04/26/24 amlodipine 5 mg tablet 5 mg PO QDAY #30 tabs 05/15/24 metoprolol tartrate 25 mg tablet 25 mg PO BID #180 tabs 06/14/24 metoprolol tartrate 50 mg tablet 50 mg PO BID #180 tabs 06/14/24 fluticasone fur. 100 mcg-umeclid 62.5 mcg-vilant 25 mcg inhalat.powder (Trelegy Ellipta) 1 inh inhalation QDAY #14 ea 08/09/24 insulin pump cart,auto,BT,G6/7 (Omnipod 5 G6-G7 Pods (Gen 5) subcutaneous cartridge) #45 ea 09/11/24 tramadol 50 mg tablet 50 mg PO BID PRN pain 09/12/24 insulin lispro 200 unit/mL (3 mL) subcutaneous pen (Humalog KwikPen U-200 Insulin) 220 unit (1.1 mL) subcut QDAY diabetes #99 mL 09/14/24 galantamine 16 mg 24 hr capsule,extended release 16 mg PO QAM #30 caps 10/03/24 pregabalin 100 mg capsule 100 mg PO BID #60 caps 10/03/24 primidone 50 mg tablet 50 mg PO BID #60 tabs 10/03/24 rimegepant 75 mg disintegrating tablet (Nurtec ODT) 75 mg PO DAILY PRN migraine headache #16 tabs 10/03/24 acetaminophen 500 mg tablet 1,000 mg PO Q8 PRN pain 10/12/24 Dexcom G7 Sensor (blood-glucose sensor) #9 ea 10/17/24 Handicap Placard #1 ea 10/17/24 isosorbide dinitrate 30 mg tablet 30 mg PO BID heart #60 tabs 11/10/24 duloxetine 60 mg capsule,delayed release 60 mg PO BID mental health #60 caps 11/15/24 lamotrigine 200 mg tablet 200 mg PO DAILY mood #30 tabs 11/15/24 mirtazapine 7.5 mg tablet 7.5 mg PO QHS mental health #30 tabs 11/15/24 atorvastatin 80 mg tablet 80 mg PO QHS CHOLESTEROL LOWERING #90 tabs 12/08/24 valacyclovir 500 mg tablet 500 mg PO Q12H PRN HSV #7 tabs 12/18/24 diphenoxylate-atropine 2.5 mg-0.025 mg tablet (Lomotil) 1 tab PO TID PRN diarrhea #90 tabs 01/01/25 aspirin 81 mg tablet,delayed release 81 mg PO DAILY heart health #30 tabs 01/11/25 clopidogrel 75 mg tablet 75 mg PO DAILY anti platelet #30 TABLETS 01/11/25 ferrous gluconate 324 mg (37.5 mg iron) tablet 324 mg PO DAILY #30 tabs 01/16/25 loperamide 2 mg capsule 2 mg PO Q6 20 days #80 caps 01/16/25 Hospital Course Operations None Procedures None Summary of Care Provided Minutes Spent on Discharge: 35 Hospital Course: Per HPI: ASHLEY MÉNDEZ, is a 64 F who presents with high output from her ostomy. Patient had been seen just a couple weeks ago for similar and received some IV fluids and did better and was doing fine at home up until yesterday where she started having large volume from her ostomy. She was getting dizzy upon sitting and standing and given her history of having high output ostomy, she presented to the emergency room. CT scan in the emergency room was unremarkable. She did have a potassium of 5.5 and creatinine of 2.1. Baseline creatinine was around 1.88 from January 10. She received Zofran, Bentyl, IV fluids, morphine, Kayexalate and fentanyl in the emergency room.] Hospital Course: 1. High output ileostomy with dehydration orthostatic hypotension/leukocytosis with anemia–64-year-old female with an ileostomy secondary to colectomy for ulcerative colitis presented to the hospital with dehydration and orthostatic hypotension. These have all resolved with IV fluids and she was started on Imodium as well as her as needed Lomotil and has finally had a decrease in her output. Stool studies were unremarkable and urine culture was negative. White count has resolved with no obvious etiology. And she is feeling better today. Will continue all of her home medications on discharge and will add a prescription for Imodium and have her follow-up with gastroenterology as an outpatient. Given her anemia iron studies were obtained which demonstrated a low iron and a low saturation as well as a low TIBC and UIBC and ferritin with low normal. Will start her on iron supplementation on discharge, my concern being that given her high ileostomy output her iron absorption from her diet was diminished. Will have her follow-up with her PCP in 3 to 5 days to monitor lab work as well. Hemoglobin today is 9.1 and this is likely dilutional but it is stable. I discussed with her the plan for discharge today and she expressed understanding of the risks and benefits of going home and would like to go home today. 2. Essential hypertension, coronary artery disease status post CABG, type 2 diabetes, CKD 4, acute on chronic right knee pain in the setting of chronic pain, history of COPD, ANKITA or all chronic medical conditions which complicate her care. Her home medications were continued where appropriate. Of note her right knee was x-rayed and does not demonstrate fracture, she can continue with her buprenorphine patch as an outpatient. Physical Exam Narrative General: Alert, Oriented x3, Cooperative, No apparent distress HEENT: Atraumatic, PERRLA, EOMI, Normocephalic Oral: Moist Mucosa Neck: Supple, No JVD Lungs: Diminished, Normal air movement, No rhonchi, No wheeze, No rales Cardiovascular: Regular rate, Regular Rhythm, Normal S1, Normal S2, No murmurs Abdomen: Soft, Non Tender, Non-Distended, No Hepato-splenomegaly, ileostomy Extremities: No edema, Capillary Refill Less than 3 Seconds Skin: No rashes, No breakdown Musculoskeletal: No Tenderness to Palpation of Joints or Extremities Neurological: No focal neurological deficits, moves all extremities Psych/Mental Status: Normal Affect, Appropriate Weight / BMI Weight Weight: 210 lb 5.136 oz Body Mass Index (BMI) 33.0 ABG / Lab / Microbiology Data 01/16/25 06:30 01/16/25 06:30 Laboratory: Laboratory Results - last 24 hr 01/15/25 11:03: POC Glucose 152 H 01/15/25 16:03: POC Glucose 193 H 01/15/25 21:39: POC Glucose 137 H 01/16/25 06:29: POC Glucose 89 01/16/25 06:30: WBC 8.7, RBC 3.68 L, Hgb 9.1 L, Hct 30.1 L, MCV 81.8, MCH 24.7 L , MCHC 30.2 L, RDW Std Deviation 50.5 H, RDW Coeff of Jan 17.1 H, Plt Count 167, MPV 11.4, Immature Gran % (Auto) 0.600, Neut % (Auto) 46.8 L, Lymph % (Auto) 25.9, [place] % (Auto) 3.7, Eos % (Auto) 22.5 H, Baso % (Auto) 0.5, Absolute Neuts (auto) 4.1, Absolute Lymphs (auto) 2.25, Nucleated RBC % 0, Sodium 139, Potassium 4.5, Chloride 110 H, Carbon Dioxide 20.8 L, Anion Gap 8, BUN 22 H, C reatinine 1.61 H, Estim Creat Clear Calc 40.01 L, Est GFR (MDRD) Non-Af 35 L, BUN/Creatinine Ratio 13.9, Glucose 90, Calcium 8.2, Iron 20 L, TIBC 237 L, Iron Saturation 8.4 L, Unsaturated IBC 217 L, Ferritin 74 Microbiology: Microbiology 01/14/25 02:50 Urine, Clean Catch Urine Culture - Final Mixed Gram Positive Organisms 01/13/25 10:46 Stool Enteric Bacteriology - Final 01/13/25 10:46 Stool Clostridioides difficile (PCR) - Final D/C Instructions Call your doctor if you observe: Fever of 101 or Higher, Shortness of breath, Dizziness, Fainting spells, Swelling in the ankles, Chest pain and Increased palpitations (irregular heartbeat) DC O2, CPAP, BIPAP Needs Home O2 Discharge instructions: No Meaningful Use Info Meaningful Use Meaningful Use Diagnoses (Choose all that apply): None applicable Discharge Plan Admission Admit Date/Time: 01/13/25 16:47 Attending Provider: Juan Carlos Gerber Primary Care Provider: Mala Mcrgath Consulting Providers: Shiva Chandler; Terrie Olson Discharge Orders/Prescriptions Prescriptions: New loperamide 2 mg Capsule 2 mg PO Q6 20 Days Qty: 80 0RF ferrous gluconate 324 mg (37.5 mg iron) tablet 324 mg PO DAILY Qty: 30 0RF Continued nitroglycerin 0.4 mg tablet, sublingual 0.4 mg sublingual Q5-15M PRN (Reason: chest pain) Qty: 25 3RF Rx Instructions: do not exceed 3 doses per episode hyoscyamine sulfate 0.125 mg tablet 0.125 mg PO BID-QID PRN (Reason: dyspepsia) galantamine 16 mg capsule,ext rel. pellets 24 hr 16 mg PO QAM Qty: 30 6RF Rx Instructions: Administer with breakfast. Nurtec ODT 75 mg tablet,disintegrating 75 mg PO DAILY PRN (Reason: migraine headache) Qty: 16 6RF primidone 50 mg tablet 50 mg PO BID Qty: 60 6RF pregabalin 100 mg capsule 100 mg PO BID Qty: 60 5RF Humalog KwikPen Insulin 200 unit/mL (3 mL) insulin pen 220 unit subcut QDAY Qty: 99 1RF Patient Comments: turned pump off on Wednesday07/22/24 Rx Instructions: via insulin pump tramadol 50 mg tablet 50 mg PO BID PRN (Reason: pain) Trelegy Ellipta 100-62.5-25 mcg blister with device 1 inh inhalation QDAY Qty: 14 0RF acetaminophen 500 mg tablet 1,000 mg PO Q8 PRN (Reason: pain) triamcinolone acetonide 0.1 % ointment 1 applic topical DAILY PRN (Reason: psoriasis) buprenorphine [Butrans] 10 mcg/hour patch weekly 1 patch transdermal Q7D dicyclomine 10 mg Capsule 10 mg PO BID PRN (Reason: stomach) fluticasone propionate [Flonase Allergy Relief] 50 mcg/actuation spray,suspension 2 spray intranasal DAILY Qty: 16 3RF Rx Instructions: administer into each nostril Repatha SureClick 140 mg/mL pen injector 140 mg subcut Q2W Qty: 6 3RF pantoprazole [Protonix] 40 mg tablet,delayed release (DR/EC) 40 mg PO BID Qty: 60 11RF cholecalciferol (vitamin D3) 1,250 mcg (50,000 unit) capsule 1,250 mcg PO .monthly Qty: 14 1RF albuterol sulfate 90 mcg/actuation HFA aerosol inhaler 2 puff INHALATION Q4-6H PRN (Reason: SOB) Qty: 8.5 0RF amlodipine 5 mg tablet 5 mg PO QDAY Qty: 30 11RF metoprolol tartrate 25 mg tablet 25 mg PO BID Qty: 180 3RF Rx Instructions: Take with 50 mg tablet to = 75 mg BID metoprolol tartrate 50 mg tablet 50 mg PO BID Qty: 180 3RF Rx Instructions: Take with 25 mg tablet to = 75 mg BID (DME) Omnipod 5 G6-G7 Pods (Gen 5) Cartridge See Rx Instructions .Route Qty: 45 1RF Rx Instructions: change every 48 hours (DME) Dexcom G7 Sensor Device See Rx Instructions .Route Qty: 9 3RF Rx Instructions: change every 10 days (DME) Handicap Placard See Rx Instructions .ROUTE .MEDSUPPLY Qty: 1 0RF Rx Instructions: As directed, length of time 3 years isosorbide dinitrate 30 mg tablet 30 mg PO BID Qty: 60 11RF duloxetine 60 mg capsule,delayed release(DR/EC) 60 mg PO BID Qty: 60 2RF lamotrigine 200 mg tablet 200 mg PO DAILY Qty: 30 2RF mirtazapine 7.5 mg tablet 7.5 mg PO QHS Qty: 30 2RF atorvastatin 80 mg tablet 80 mg PO QHS Qty: 90 1RF Patient Comments: cholesterol valacyclovir 500 mg tablet 500 mg PO Q12H PRN (Reason: HSV) Qty: 7 0RF diphenoxylate-atropine [Lomotil] 2.5-0.025 mg tablet 1 tab PO TID PRN (Reason: diarrhea) Qty: 90 2RF aspirin 81 mg tablet,delayed release (DR/EC) 81 mg PO DAILY Qty: 30 11RF clopidogrel 75 mg tablet 75 mg PO DAILY Qty: 30 11RF Referrals / Follow Up: Mala Mcgrath MD [Primary Care Provider, Internal Medicine] FriendAj DO [Med Staff - Active Staff, Gastroenterology] - Within 1 Month Disposition Disposition (needs filled in before D/C Order can be placed): Home, Self Care Charges/Coding Visit Charges Inpatient E&M: 59954 Disch Hosp >30min
== END 2025-01-16 15:26 | disposition home or self-care (01) | DRG 394 ==
LOC: ED 13:56 → MS3 17:19
PROVIDERS: Internal Medicine; Emergency Provider Emergency Medicine; PCP Internal Medicine; Visit Provider Family Medicine
DX: K94.19 Other complications of enterostomy (principal); K51.90 Ulcerative colitis, unspecified, without complications; N17.9 Acute kidney failure, unspecified; N18.4 Chronic kidney disease, stage 4 (severe); D63.1 Anemia in chronic kidney disease; D72.829 Elevated white blood cell count, unspecified; E86.0 Dehydration; D47.2 Monoclonal gammopathy; E11.22 Type 2 diabetes mellitus with diabetic chronic kidney disease; J44.9 Chronic obstructive pulmonary disease, unspecified; M06.9 Rheumatoid arthritis, unspecified; I12.9 Hypertensive chronic kidney disease with stage 1 through stage 4 chronic kidney disease, or unspecified chronic kidney disease; E66.811 Obesity, class 1; F41.8 Other specified anxiety disorders; E11.43 Type 2 diabetes mellitus with diabetic autonomic (poly)neuropathy; I25.10 Atherosclerotic heart disease of native coronary artery without angina pectoris; K31.84 Gastroparesis; Z79.4 Long term (current) use of insulin; E78.5 Hyperlipidemia, unspecified; E55.9 Vitamin D deficiency, unspecified; K21.9 Gastro-esophageal reflux disease without esophagitis; G47.33 Obstructive sleep apnea (adult) (pediatric); G43.909 Migraine, unspecified, not intractable, without status migrainosus; L40.9 Psoriasis, unspecified; E87.5 Hyperkalemia; I95.1 Orthostatic hypotension; I44.4 Left anterior fascicular block; M25.561 Pain in right knee; Z96.41 Presence of insulin pump (external) (internal); G89.29 Other chronic pain; Z95.1 Presence of aortocoronary bypass graft; Z79.51 Long term (current) use of inhaled steroids; Z79.82 Long term (current) use of aspirin; Z79.02 Long term (current) use of antithrombotics/antiplatelets; Z79.899 Other long term (current) drug therapy; Z90.49 Acquired absence of other specified parts of digestive tract; Z87.891 Personal history of nicotine dependence; Z68.32 Body mass index [BMI] 32.0-32.9, adult; Z79.84 Long term (current) use of oral hypoglycemic drugs
CPT/HCPCS: 36415; 36591; 73560; 74176; 80048; 80053; 81001; 82728; 82784; 82962; 83540; 83550; 83615; 83883; 84165; 85025; 86334; 87086; 87088; 87493; 87506; 93005; 94640; 94668; 99285; A4216; J2405

== ENCOUNTER 2025-01-22 10:55 | Outpatient (CLI) | payer MEDICARE, MEDICAID, SELFPAY ==
[2024-06-27 09:22] VITALS: BMI 30.9
[2025-01-22] MEDS: Lactated Ringers 1,000 ML 999 ML IV (11:21)
[2025-01-22 11:23] VITALS: BP 153/73; PULSE 69; RESP 16; TEMP 36.1; O2SAT 97; BMI 33.5
[2025-01-22 12:34] VITALS: BP 148/71; PULSE 64; RESP 16; TEMP 36.6; O2SAT 97
== END 2025-01-22 23:59 | disposition home or self-care (01) ==
LOC: MEDOUTP 10:55
PROVIDERS: PCP Internal Medicine; Referring Provider Student in an Organized Health Care Education/Training Program; Visit Provider Student in an Organized Health Care Education/Training Program
DX: E86.0 Dehydration (principal); R19.8 Other specified symptoms and signs involving the digestive system and abdomen
CPT/HCPCS: 96360; A4216

== ENCOUNTER 2025-01-23 08:08 | Emergency (ER) | payer MEDICARE, MEDICAID, SELFPAY ==
[2024-06-27 09:22] VITALS: BMI 30.9
[2025-01-23 08:09] VITALS: BP 172/72; PULSE 89; RESP 16; TEMP 36.6; O2SAT 96; BMI 33.5
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
--- NOTE | 2025-01-23 08:45 | RAD_ITS ---
PROCEDURE: FEMUR MIN 2 VIEWS 01/23/2025 REASON FOR EXAM: INJURY/PAIN TECHNIQUE: Procedure Code: RADFEM Modality: DX Procedure: FEMUR MIN 2 VIEWS Laterality: Left femur. COMPARISON: None FINDINGS: Bones: Status post left total hip replacement. There is good alignment. No evidence of fracture or dislocation. Joints: Normal alignment at the hip and knee. Soft tissues: Soft tissues are unremarkable. Other: RAD/Femur Min 2 Views IMPRESSION: Status post left total hip replacement. There is good alignment. No acute abnormality is seen. Reading Location: [id number]
--- NOTE | 2025-01-23 08:45 | RAD_ITS ---
PROCEDURE: HIP, UNI W/ PELVIS 2-3 VIEWS 01/23/2025 REASON FOR EXAM: INJURY/PAIN TECHNIQUE: Procedure Code: RAD Modality: DX Procedure: HIP, UNI W/ PELVIS 2-3 VIEWS Laterality: Bilateral hips. COMPARISON: None FINDINGS: Bones: There is a 10.9 mm by 10 mm rounded sclerotic focus along the medial superior aspect of the right sacral wing. This may represent a bone island. Joints: Status post left total hip replacement. There is good alignment. Mild degree of degenerative changes of the sacroiliac joints. Soft tissues: Unremarkable Other: RAD/HIP, UNI W/ Pelvis 2-3 Views IMPRESSION: Status post left total hip replacement. No acute abnormality is seen. 10 mm x 10.9 mm rounded sclerotic focus along the medial superior aspect of the right sacral wing. This may represent a small bone island. Reading Location: [id number]
--- NOTE | 2025-01-23 09:34 | CT_ITS ---
PROCEDURE: EXTREMITY LOWER WITHOUT CONTRA 01/23/2025 REASON FOR EXAM: PAIN, FALL TECHNIQUE: Procedure Code: CTELWO Modality: CT Procedure: EXTREMITY LOWER WITHOUT CONTRA Coronal and Sagittal reconstruction series were provided. CONTRAST: None One or more dose reduction techniques were used (e.g., Automated exposure control, adjustment of the mA and/or kV according to patient size, use of iterative reconstruction technique). RADIATION DOSE SUMMARY: DLP: 705 mGy-cm mGycm COMPARISON: None FINDINGS: There is a total hip prosthesis in position with intact hardware and anatomic alignment. There is no visible acute fracture. There is no soft tissue mass or hematoma identified. Vascular calcifications are noted. The included pelvic bones appear intact. CT/Extremity Lower without Contra IMPRESSION: Hardware in position. Reading Location: [facility]
[2025-01-23 11:28] VITALS: BP 159/80; PULSE 71; RESP 17; TEMP 36.6; O2SAT 96
== END 2025-01-23 11:29 | disposition home or self-care (01) ==
PROVIDERS: Emergency Provider Emergency Medicine; PCP Internal Medicine; Visit Provider Emergency Medicine
DX: S70.02XA Contusion of left hip, initial encounter (principal); Z93.2 Ileostomy status; N18.4 Chronic kidney disease, stage 4 (severe); I50.32 Chronic diastolic (congestive) heart failure; I13.0 Hypertensive heart and chronic kidney disease with heart failure and stage 1 through stage 4 chronic kidney disease, or unspecified chronic kidney disease; J44.9 Chronic obstructive pulmonary disease, unspecified; E11.22 Type 2 diabetes mellitus with diabetic chronic kidney disease; I25.10 Atherosclerotic heart disease of native coronary artery without angina pectoris; M25.552 Pain in left hip; E78.49 Other hyperlipidemia; Z87.891 Personal history of nicotine dependence; V28.49XA Other motorcycle driver injured in noncollision transport accident in traffic accident, initial encounter
CPT/HCPCS: 73502; 73552; 73700; 96372; 99283

== ENCOUNTER 2025-01-24 11:19 | Outpatient (CLI) | payer MEDICARE, MEDICAID, SELFPAY ==
[2024-06-27 09:22] VITALS: BMI 30.9
[2025-01-24] MEDS: 0.9% NaCl Peripheral Flush Adult IV ×3 (11:48→13:03)
[2025-01-24] MEDS: Lactated Ringers 1,000 ML 999 ML IV (11:54)
[2025-01-24 11:57] VITALS: BP 127/52; PULSE 63; RESP 18; TEMP 36.6; O2SAT 96; BMI 33.5
[2025-01-24] MEDS: 0.9 % NaCl (Sterile) Posiflush 10 mL IV (13:02)
[2025-01-24 13:09] VITALS: BP 124/52; PULSE 65; RESP 16; TEMP 36.5; O2SAT 98
== END 2025-01-24 23:59 | disposition home or self-care (01) ==
LOC: MEDOUTP 11:19
PROVIDERS: PCP Internal Medicine; Referring Provider Student in an Organized Health Care Education/Training Program; Visit Provider Student in an Organized Health Care Education/Training Program
DX: E86.0 Dehydration (principal); R19.8 Other specified symptoms and signs involving the digestive system and abdomen
CPT/HCPCS: 96360; A4216

== ENCOUNTER → 2025-01-25 | Outpatient (CLI) | payer MEDICARE, MEDICAID, SELFPAY ==
[2024-06-27 09:22] VITALS: BMI 30.9
--- NOTE | 2025-01-25 09:02 | CDU_ITS ---
Reason For Study Reason For Study: HX Rt ICA TCAR Rt. Velocities/BP Lt. Velocities/BP Prox CCA 79.8/18.2 cm/sec. Prox CCA 150.7/21.7 cm/sec. Mid CCA 84.2/21.5 cm/sec. Mid CCA 142.2/27.4 cm/sec. Dist CCA 76.5/21.5 cm/sec. Dist CCA 105.6/19.6 cm/sec. Rt Prox ICA Stent Noted Prox ICA 345.2/53.8 cm/sec. Pre Stent - 78.4/26.7 cm/s Mid ICA 147.7/35.8 cm/sec. Prox Stent - 73.0/26.7 cm/s Dist ICA 103.6/30.8 cm/sec. Mid Stent - 148.5/38.9 cm/s Lt. ICA/CCA = 2.3. Dist Stent - 137.5/31.6 cm/s Prox ECA 197.2/0.0 cm/sec. Post Stent - 130.9/23.1 cm/s. Lt. Vert. 79.5/17.9 cm/sec. Dist ICA 149.1/26.8 cm/sec. Rt. ICA/CCA = 1.8. Prox ECA 599.0/97.2 cm/sec. Rt. Vert. 84.0/18.8 cm/sec. Right Extracranial There is intimal thickening but no significant atherosclerotic plaque noted in the right common carotid artery. There is homogeneous, smooth atherosclerotic plaque noted in the right internal carotid artery. There is heterogeneous, irregular atherosclerotic plaque noted in the right external carotid artery. The atherosclerotic plaque causes acoustic shadowing. Antegrade flow is noted in the right vertebral artery. Left Extracranial There is heterogeneous, irregular atherosclerotic plaque noted in the left common carotid artery. There is heterogeneous, irregular atherosclerotic plaque noted in the left internal carotid artery. There is heterogeneous, irregular atherosclerotic plaque noted in the left external carotid artery. Antegrade flow is noted in the left vertebral artery. There is heterogeneous, irregular atherosclerotic plaque noted in the left bulb. Procedure Carotid Duplex 99236. This is a Carotid Duplex examination using B-mode, color flow and specral Doppler. The exam was diagnostic. Exam performed in department. VL/Carotid Duplex Ultrasound Interpretation Summary Mild (<70%) stenosis right extracranial internal carotid. Severe (>70%) stenosis left extracranial internal carotid. Patent and antegrade vertebrals bilaterally. Ordering Physician: Jennifer Ortega Referring Physician: Mala Mcgrath Performed By: Alex Padilla RVT and Student
== END | disposition home or self-care (01) ==
LOC: CVS 08:59
PROVIDERS: PCP Internal Medicine; Referring Provider Physician Assistant; Visit Provider Physician Assistant
DX: Z48.812 Encounter for surgical aftercare following surgery on the circulatory system (principal); I65.23 Occlusion and stenosis of bilateral carotid arteries; Z95.828 Presence of other vascular implants and grafts
CPT/HCPCS: 93880

== ENCOUNTER 2025-01-29 11:03 | Outpatient (CLI) | payer MEDICARE, MEDICAID, SELFPAY ==
[2024-06-27 09:22] VITALS: BMI 30.9
[2025-01-29] MEDS: Lactated Ringers 1,000 ML 999 ML IV (11:38)
[2025-01-29] MEDS: 0.9% NaCl Peripheral Flush Adult IV (12:44)
[2025-01-29 12:52] VITALS: BP 153/55; PULSE 65; RESP 16
== END 2025-01-29 23:59 | disposition home or self-care (01) ==
LOC: MEDOUTP 11:03
PROVIDERS: PCP Internal Medicine; Referring Provider Student in an Organized Health Care Education/Training Program; Visit Provider Student in an Organized Health Care Education/Training Program
DX: E86.0 Dehydration (principal); R19.8 Other specified symptoms and signs involving the digestive system and abdomen
CPT/HCPCS: 96360; A4216

== ENCOUNTER 2025-01-31 11:01 | Outpatient (CLI) | payer MEDICARE, MEDICAID, SELFPAY ==
[2024-06-27 09:22] VITALS: BMI 30.9
[2025-01-31] MEDS: Lactated Ringers 1,000 ML 999 ML IV (11:11)
[2025-01-31 11:12] VITALS: BP 147/62; PULSE 72; RESP 16; TEMP 35.7; O2SAT 92
[2025-01-31] MEDS: 0.9% NaCl Peripheral Flush Adult IV (12:16)
[2025-01-31 12:17] VITALS: BP 163/64; PULSE 64; RESP 16
== END 2025-01-31 23:59 | disposition home or self-care (01) ==
LOC: MEDOUTP 11:01
PROVIDERS: PCP Internal Medicine; Referring Provider Student in an Organized Health Care Education/Training Program; Visit Provider Student in an Organized Health Care Education/Training Program
DX: E86.0 Dehydration (principal); R19.8 Other specified symptoms and signs involving the digestive system and abdomen
CPT/HCPCS: 96360; A4216

== ENCOUNTER 2025-02-07 11:10 | Outpatient (CLI) | payer MEDICARE, MEDICAID, SELFPAY ==
[2024-06-27 09:22] VITALS: BMI 30.9
[2025-02-07 11:22] VITALS: BP 135/64; PULSE 87; RESP 16; TEMP 36; O2SAT 94; BMI 32.8
[2025-02-07] MEDS: Lactated Ringers 1,000 ML 999 ML IV (11:24)
[2025-02-07] MEDS: 0.9% NaCl Peripheral Flush Adult IV (12:28)
[2025-02-07 12:29] VITALS: BP 146/75; PULSE 72; RESP 16; TEMP 36.2; O2SAT 94
== END 2025-02-07 23:59 | disposition home or self-care (01) ==
PROVIDERS: PCP Internal Medicine; Referring Provider Student in an Organized Health Care Education/Training Program; Visit Provider Student in an Organized Health Care Education/Training Program
DX: E86.0 Dehydration (principal); R19.8 Other specified symptoms and signs involving the digestive system and abdomen
CPT/HCPCS: 96360; A4216

== ENCOUNTER 2025-02-12 11:01 | Outpatient (CLI) | payer MEDICARE, MEDICAID, SELFPAY ==
[2024-06-27 09:22] VITALS: BMI 30.9
[2025-02-12 11:15] VITALS: BP 131/62; PULSE 75; RESP 16; TEMP 36.2; O2SAT 93; BMI 33.5
[2025-02-12] MEDS: 0.9% NaCl Peripheral Flush Adult IV ×2 (11:22→12:23)
[2025-02-12] MEDS: Lactated Ringers 1,000 ML 999 ML IV (11:22)
[2025-02-12 12:23] VITALS: BP 157/74; PULSE 66; RESP 16; TEMP 36.3; O2SAT 94
[2025-02-12 12:33] LABS: Mucous, Urine 0 SEEN /hpf (<or=2+); Red Blood Cells-Urine 0 SEEN /hpf (0-5)
[2025-02-12 12:47] LABS: Color, Urine Yellow (Yellow); Glucose, Dipstick Normal (Normal); Ketone-Dipstick Negative (Negative); Leukocyte Esterase-Dipstick Negative /ul (Negative); Nitrite-Dipstick Negative (Negative); Occult Blood-Urine 10 /ul (Negative); Protein-Dipstick 100 mg/dl (Negative); Specific Gravity, Urine 1.015 (1.002-1.030); Urine Bilirubin Dipstick Negative (Negative)
[2025-02-12 13:05] LABS: Squamous Epithelial Cells - UA 0-5 SEEN /hpf (5-10)
[2025-02-12 13:10] LABS: Uric Acid 7.2 mg/dL (2.6-6.0)
== END 2025-02-12 23:59 | disposition home or self-care (01) ==
PROVIDERS: Orthopaedic Surgery; PCP Internal Medicine; Referring Provider Student in an Organized Health Care Education/Training Program; Visit Provider Student in an Organized Health Care Education/Training Program
DX: E86.0 Dehydration (principal); R19.8 Other specified symptoms and signs involving the digestive system and abdomen; R30.0 Dysuria; M17.11 Unilateral primary osteoarthritis, right knee
CPT/HCPCS: 36591; 81001; 84550; 96360; A4216

== ENCOUNTER 2025-02-19 10:53 | Outpatient (CLI) | payer MEDICARE, MEDICAID, SELFPAY ==
[2024-06-27 09:22] VITALS: BMI 30.9
[2025-02-19 11:11] VITALS: BP 157/68; PULSE 70; RESP 18; TEMP 36.2; O2SAT 95
[2025-02-19] MEDS: Lactated Ringers 1,000 ML 999 ML IV (11:11)
[2025-02-19] MEDS: 0.9% NaCl Peripheral Flush Adult IV ×2 (11:34→12:23)
[2025-02-19 12:23] VITALS: BP 167/61; PULSE 69; RESP 18
== END 2025-02-19 23:59 | disposition home or self-care (01) ==
LOC: MEDOUTP 10:53
PROVIDERS: PCP Internal Medicine; Referring Provider Student in an Organized Health Care Education/Training Program; Visit Provider Student in an Organized Health Care Education/Training Program
DX: E86.0 Dehydration (principal); R19.8 Other specified symptoms and signs involving the digestive system and abdomen
CPT/HCPCS: 96360; A4216

== ENCOUNTER 2025-02-21 11:03 | Outpatient (CLI) | payer MEDICARE, MEDICAID, SELFPAY ==
[2024-06-27 09:22] VITALS: BMI 30.9
[2025-02-21] MEDS: Lactated Ringers 1,000 ML 999 ML IV (11:12)
[2025-02-21 11:16] VITALS: BP 147/61; PULSE 84; RESP 16; TEMP 36.2; O2SAT 93; BMI 33.5
[2025-02-21] MEDS: 0.9% NaCl Peripheral Flush Adult IV (12:19)
[2025-02-21 12:23] VITALS: BP 174/65; PULSE 73; RESP 16; TEMP 36.4; O2SAT 95
== END 2025-02-21 23:59 | disposition home or self-care (01) ==
LOC: MEDOUTP 11:03
PROVIDERS: PCP Internal Medicine; Referring Provider Student in an Organized Health Care Education/Training Program; Visit Provider Student in an Organized Health Care Education/Training Program
DX: E86.0 Dehydration (principal); R19.8 Other specified symptoms and signs involving the digestive system and abdomen
CPT/HCPCS: 96360; A4216

== ENCOUNTER 2025-02-28 10:41 | Outpatient (CLI) | payer MEDICARE, MEDICAID, SELFPAY ==
[2024-06-27 09:22] VITALS: BMI 30.9
[2025-02-28] MEDS: Lactated Ringers 1,000 ML 999 ML IV (10:58)
[2025-02-28 10:59] VITALS: BP 155/57; PULSE 85; RESP 16; TEMP 36.7; O2SAT 95
--- OUTSIDE RECORDS SUMMARY | 2025-02-28 11:05 | XMS RPT_ITS | CCD ---
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 Name Role Phone MILTON, DEAN C Unavailable [...] Unavailable OLEGHE, EFEWONGBE B Primary Care Unavailable Isckarus, Mansour Referring Unavailable Dolores Barajasour Attending Unavailable Oleghe, Efewongbe Primary Care Unavailable Jennifer Ortega Referring Unavailable Jennifer Ortega Attending Unavailable Oleghe, Efewongbe Primary Care Unavailable Devi Van Attending Unavailable Devi Van Referring Unavailable Oleghe, Efewongbe Primary Care Unavailable Juan Carlos Gerber Attending Unavailable Oleghe, Efewongbe Primary Care Unavailable Shiva Chandler Consulting Unavailable Jopperi, Shiva Admitting Unavailable Terrie Olson Consulting Unavailable Royce Martínez Attending Unavailable Oleghe, Efewongbe Referring Unavailable Oleghe, Efewongbe Primary Care Unavailable Tiffany Crystal Attending Unavailable Oleghe, Efewongbe Primary Care Unavailable OsminusDoloresour Attending Unavailable Oleghe, Efewongbe Primary Care Unavailable Oleghe, Efewongbe Referring Unavailable Jade Castaneda Attending Unavailable Oleghe, Efewongbe Primary Care Unavailable Oleghe, Efewongbe Referring Unavailable Devi Van Referring Unavailable Oleghe, Efewongbe Primary Care Unavailable Devi Van Attending Unavailable Devi Van Referring Unavailable Devi Van Attending Unavailable Oleghe, Efewongbe Primary Care Unavailable Devi Van Referring Unavailable Devi Van Attending Unavailable Oleghe, Efewongbe Primary Care Unavailable Serenity Blackburn Attending Unavail able Serenity Blackburn Referring Unavail able Oleghe, Efewongbe Primary Care Unavailable Friend, Aj Referring Unavailable Friend, Aj Attending Unavailable Oleghe, Efewongbe Primary Care Unavailable Oleghe, Efewongbe Primary Care Unavailable Devi Van Referring Unavailable Devi Van Attending Unavailable Oleghe, Efewongbe Primary Care Unavailable Devi Van Referring Unavailable Devi Van Attending Unavailable Devi Van Referring Unavailable Oleghe, Efewongbe Primary Care Unavailable Devi Van Attending Unavailable Juan Carlos Gerber Attending Unavailable Lioeri, Shiva Admitting Unavailable Oleghe, Efewongbe Primary Care Unavailable Jotono Shiva Consulting Unavailable Juan Carlos Gerber Consulting Unavailable Oleghe, Efewongbe Primary Care Unavailable Fish Menon Attending Unavailable Oleghe, Efewongbe Primary Care Unavailable Tiffany Crystal Attending Unavailable Oleghe, Efewongbe Primary Care Unavailable Nereyda Hubbard Attending Unavailable Oleghe, Efewongbe Referring Unavailable Devi Van Attending Unavailable Devi [...] Care Unavailable Oleghe, Efewongbe Primary Care Unavailable Devi [...] Oleghe, Efewongbe Primary Care Unavailable Jade Castaneda Referring Unavailable Jade Castaneda Attending Unavailable Oleghe, Efewongbe Primary Care Unavailable Devi Van Referring Unavailable Atanasov, Devi Attending Unavailable Devi Van Attending Unavailable Devi Van Referring Unavailable Oleghe, Efewongbe Primary Care Unavailable Oleghe, Efewongbe Primary Care Unavailable Donnie Christopher Referring Unavailable Donnie Christopher Attending Unavailable Devi Van Attending Unavailable Devi Van Referring Unavailable Oleghe, Efewongbe Primary Care Unavailable Devi Van Attending Unavailable Devi Van Referring Unavailable Oleghe, Efewongbe Primary Care Unavailable Devi Van Attending Unavailable Devi Van Referring Unavailable Oleghe, Efewongbe Primary Care Unavailable Devi Van Attending Unavailable Devi Van Referring Unavailable Oleghe, Efewongbe Primary Care Unavailable Juan Carlos Gerber Attending Unavailable Jopperi, Shiva Consulting Unavailable Jopperi, Shiva Admitting Unavailable Oleghe, Efewongbe Primary Care Unavailable Oleghe, Efewongbe Primary Care Unavailable Greeley, Shiva Admitting Unavailable Greeley Shiva Attending Unavailable Johanna, Shiva Referring Unavailable Devi Van Attending Unavailable Devi Van Referring Unavailable Oleghe, Efewongbe Primary Care Unavailable Devi Van Attending Unavailable Devi Van Referring Unavailable Oleghe, Efewongbe Primary Care Unavailable Vikas Hill Referring Unavailable Nazario Verduzco Attending Unavailable Oleghe, Efewongbe Primary Care Unavailable Jennifer Ortega Referring Unavailable Greeley Shiva Attending Unavailable Oleghe, Efewongbe Primary Care Unavailable Oleghe, Efewongbe Primary Care Unavailable Tiffany Crystal Attending Unavailable Henri Camacho Attending Unavailable Oleghe, Efewongbe Primary Care Unavailable Oleghe, Efewongbe Referring Unavailable Devi Van Attending Unavailable Devi [...] Efewongbe Primary Care Unavailable FriendAj Attending Unavailable FriendAj Referring Unavailable Oleghe, Efewongbe Primary Care Unavailable Devi Van Referring Unavailable Devi Van Attending Unavailable Oleghe, Efewongbe Primary Care Unavailable Devi Van Referring Unavailable Dvei Van Attending Unavailable Oleghe, Efewongbe Primary Care Unavailable Devi Van Referring Unavailable Devi Van Attending Unavailable Oleghe, Efewongbe Primary Care Unavailable Paris SOD FARMERViolettea Attending Unavailable Paris SOD FARMERTonia Referring Unavailable Oleghe, Efewongbe Primary Care Unavailable Deiv Van Attending Unavailable Devi Van Referring Unavailable Oleghe, Efewongbe Primary Care Unavailable Oleghe, Efewongbe Primary Care Unavailable Clarke Belcher Attending Unavailable Burton Chavez Attending Unavailabl e Oleghe, Efewongbe Primary Care Unavailable Oleghe, Efewongbe Primary Care Unavailable Clarke Belcher Attending Unavailable Devi Van Attending Unavailable Devi Van Referring Unavailable Oleghe, Efewongbe Primary Care Unavailable Devi Van Referring Unavailable Devi Van Attending Unavailable Oleghe, Efewongbe Primary Care Unavailable Oleghe, Efewongbe Primary Care Unavailable Devi Van Referring Unavailable Devi Van Attending Unavailable Oleghe, Efewongbe Primary Care Unavailable Devi Van Referring Unavailable Devi Van Attending Unavailable AtaDevi muller Attending Unavailable Devi Van Referring Unavailable Oleghe, Efewongbe Primary Care Unavailable AtaDevi muller Attending Unavailable AtanasDevi fernández Referring Unavailable Oleghe, Efewongbe Primary Care Unavailable AtaDevi muller Attending Unavailable AtanasDevi fernández Referring Unavailable Oleghe, Efewongbe Primary Care Unavailable Devi Van Attending Unavailable AtaDevi muller Referring Unavailable Oleghe, Efewongbe Primary Care Unavailable AtaDevi muller Attending Unavailable AtanasDevi fernández Referring Unavailable Oleghe, Efewongbe Primary Care Unavailable Oleghe, Efewongbe Primary Care Unavailable Devi Van Referring Unavailable AtaDevi muller Attending Unavailable Oleghe, Efewongbe Primary Care Unavailable Devi Van Referring Unavailable AtaDevi muller Attending Unavailable Isckarus, Michael Referring Unavailable Isckarus Mansour Attending Unavailable Oleghe, Efewongbe Primary Care Unavailable Herbert Marks Attending Unavailable Oleghe, Efewongbe Primary Care Unavailable OrtegaBrian velazquezison Attending Unavailable OrtegaBrian velazquezison Referring Unavailable Oleghe, Efewongbe Primary Care Unavailable Oleghe, Efewongbe Primary Care Unavailable Devi Van Referring Unavailable AtaDevi muller Attending Unavailable Oleghe, Efewongbe Primary Care Unavailable Devi Van Referring Unavailable AtaDevi muller Attending Unavailable Devi Van Attending Unavailable Devi Van Referring Unavailable Oleghe, Efewongbe Primary Care Unavailable Devi Van Attending Unavailable AtaDevi muller Referring Unavailable Oleghe, Efewongbe Primary Care Unavailable AtaDevi muller Referring Unavailable Oleghe, Efewongbe Primary Care Unavailable Devi Van Attending Unavailable Devi Van Referring Unavailable Oleghe, Efewongbe Primary Care Unavailable Devi Van Attending Unavailable AtanasDevi fernández Referring Unavailable Oleghe, Efewongbe Primary Care Unavailable Devi Van Attending Unavailable AtaDevi muller Referring Unavailable Oleghe, Efewongbe Primary Care Unavailable Devi Van Attending Unavailable Oleghe, Efewongbe Primary Care Unavailable AtaDevi muller Referring Unavailable AtanasDevi fernández Attending Unavailable Atanasov, Devi Referring Unavailable Devi Van Attending Unavailable Oleghe, [...] Primary Care Unavailable Baddour, Herbert Referring Unavailable Cyndydour Herbert Attending Unavailable Oleghe, Efewongbe Primary Care Unavailable Devi Van Referring Unavailable Devi Van Attending Unavailable Oleghe, Efewongbe Primary Care Unavailable Jade Castaneda Referring Unavailable Jade Castaneda Attending Unavailable Oleghe, Efewongbe Primary Care Unavailable Devi Van Referring Unavailable Devi Van Attending Unavailable Oleghe, Efewongbe Primary Care Unavailable Audrey Vail Attending Unavailable Roberto Brewster Admitting Unavailable Nagajothi, Nagapradee Consulting Unavailabl e Oleghe, Efewongbe Primary Care Unavailable Roberto Brewster Consulting Unavailable Barrington, Castillo Admitting Unavailable Oleghe, Efewongbe Primary Care Unavailable Barrington, Castillo Attending Unavailable Tanphaichitr, Natthavat Consulting Unavaila ble Oleghe, Efewongbe Primary Care Unavailable Suellen Laureano Attending Unavailable Oleghe, Efewongbe Primary Care Unavailable Shiva Spencer Attending Unavailable Oleghe, Efewongbe Referring Unavailable Oleghe, Efewongbe Primary Care Unavailable Jade Castaneda Attending Unavailable Oleghe, Efewongbe Referring Unavailable Oleghe, Efewongbe Primary Care Unavailable Tiffany Crystal Attending Unavailable Oleghe, Efewongbe Primary Care Unavailable Donnie Christopher Attending Unavailable Oleghe, Efewongbe Referring Unavailable Oleghe, Efewongbe Primary Care Unavailable Linda Rizzo Attending Unavailable Oleghe, Efewongbe Referring Unavailable Michael Barajas Attending Unavailable Oleghe, Efewongbe Primary Care Unavailable Oleghe, Efewongbe Referring Unavailable Devi Van Attending Unavailable Oleghe, Efewongbe Primary Care Unavailable Oleghe, Efewongbe Referring Unavailable Oleghe, Efewongbe Primary Care Unavailable Tiffany Crystal Attending Unavailable Oleghe, Efewongbe Primary Care Unavailable Herbert Marks Attending Unavailable Oleghe, Efewongbe Referring Unavailable Oleghe, Efewongbe Primary Care Unavailable Tiffany Crystal Attending Unavailable Suellen Laureano Attending Unavailable Oleghe, Efewongbe Primary Care Unavailable Oleghe, Efewongbe Primary Care Unavailable Tiffany Crystal Attending Unavailable Oleghe, Efewongbe Primary Care Unavailable Nereyda Hubbard Attending Unavailable Oleghe, Efewongbe Referring Unavailable Tiffany Crystal Attending Unavailable Oleghe, Efewongbe Primary Care Unavailable Herbert Marks Referring Unavailable Herbert Marks Attending Unavailable Oleghe, Efewongbe Primary Care Unavailable Oleghe, Efewongbe Primary Care Unavailable Tiffany Crystal Attending Unavailable Henri Camacho Attending Unavailable Oleghe, Efewongbe Primary Care Unavailable Oleghe, Efewongbe Referring Unavailable Oleghe, Efewongbe Primary Care Unavailable Oleghe, Efewongbe Referring Unavailable Oleghe, Efewongbe Attending Unavailable Oleghe, Efewongbe Primary Care Unavailable Fish Menon Attending Unavailable Oleghe, Efewongbe Primary Care Unavailable Michael Barajas Attending Unavailable Oleghe, Efewongbe Referring Unavailable Jennifer Ortega Attending Unavailable Oleghe, Efewongbe Referring Unavailable Oleghe, Efewongbe Primary Care Unavailable Jade Castaneda Attending Unavailable Oleghe, Efewongbe Referring Unavailable Oleghe, Efewongbe Primary Care Unavailable Herbert Marks Attending Unavailable Herbert Marks Referring Unavailable Oleghe, Efewongbe Primary Care Unavailable Tiffany Crystal Attending Unavailable Oleghe, Efewongbe Primary Care Unavailable Jade Castaneda Attending Unavailable Oleghe, Efewongbe Primary Care Unavailable Oleghe, Efewongbe Referring Unavailable Tonia Toledo NP Attending Unavailable Oleghe, Efewongbe Referring Unavailable Oleghe, Efewongbe Primary Care Unavailable Sridevi, Suellen Attending Unavailable Oleghe, Efewongbe Primary Care Unavailable Royce [...] Primary Care Unavailable Oleghe, Efewongbe Referring Unavailable Fish Menon Attending Unavailable Oleghe, Efewongbe Primary Care Unavailable Sridevi, Suellen Attending Unavailable Oleghe, Efewongbe Primary Care Unavailable Nereyda Hubbard Attending Unavailable Oleghe, Efewongbe Primary Care Unavailable Oleghe, Efewongbe Referring Unavailable Tiffany Crystal Attending Unavailable Oleghe, Efewongbe Primary Care Unavailable Debra Benavides Attending Unavailable Oleghe, Efewongbe Primary Care Unavailable Oleghe, Efewongbe Referring Unavailable Fish Menon Attending Unavailable Oleghe, Efewongbe Primary Care Unavailable Oleghe, Efewongbe Referring Unavailable Tiffany Crystal Attending Unavailable Oleghe, Efewongbe Primary Care Unavailable Herbert Marks Attending Unavailable Oleghe, Efewongbe Primary Care Unavailable Oleghe, Efewongbe Referring Unavailable Tiffany Crystal Attending Unavailable Oleghe, Efewongbe Primary Care Unavailable Sridevi, Suellen Attending Unavailable Oleghe, Efewongbe Primary Care Unavailable Aj Andino Attending Unavailable Oleghe, Efewongbe Primary Care Unavailable Oleghe, Efewongbe Referring Unavailable Sridevi, Suellen Attending Unavailable Oleghe, Efewongbe Primary Care Unavailable Tiffany Crystal Attending Unavailable Oleghe, Efewongbe Primary Care Unavailable Castillo Ferris Admitting Unavailable Castillo Ferris Attending Unavailable Oleghe, Efewongbe Primary Care Unavailable Tanphaichiesme, Natthavat Consulting Unavaila ble Castillo Ferris Consulting Unavailable Oleghe, Efewongbe Primary Care Unavailable Jopperi, Shiva Consulting Unavailable Jotono, Shiva Admitting Unavailable Eladio Chandleric Attending Unavailable Terrie Olson Attending Unavailable Terrie Olson Consulting Unavailable Juan Carlos Gerber Attending Unavailable Juan Carlos Gerber Consulting Unavailable Tiffany Crystal Attending Unavailable Oleghe, Efewongbe Primary Care Unavailable Tiffany Crystal Attending Unavailable Oleghe, Efewongbe Primary Care Unavailable Oleghe, Efewongbe Primary Care Unavailable Hollie Fulton NP Attending Unavailable Oleghe, Efewongbe Referring Unavailable Henri Camacho Attending Unavailable Oleghe, Efewongbe Primary Care Unavailable Oleghe, Efewongbe Referring Unavailable Jade Castaneda Attending Unavailable Oleghe, Efewongbe Primary Care Unavailable Oleghe, Efewongbe Referring Unavailable Herbert Marks Referring Unavailable Herbert Marks Attending Unavailable Oleghe, Efewongbe Primary Care Unavailable Tiffany Crystal Attending Unavailable Oleghe, Efewongbe Primary Care Unavailable Herbert Marks Attending Unavailable Kendrick Herbert Referring Unavailable Oleghe, Efewongbe Primary Care Unavailable Jade Castaneda Attending Unavailable Oleghe, Efewongbe Primary Care Unavailable Oleghe, Efewongbe Referring Unavailable Oleghe, Efewongbe Attending Unavailable Oleghe, Efewongbe Referring Unavailable Oleghe, Efewongbe Primary Care Unavailable Serenity Blackburn Attending Unavail able Oleghe, Efewongbe Referring Unavailable Oleghe, Efewongbe Primary Care Unavailable Devi Van Attending Unavailable Devi Van Referring Unavailable Oleghe, Efewongbe Primary Care Unavailable Devi Van Attending Unavailable Devi Van Referring Unavailable Oleghe, Efewongbe Primary Care Unavailable Johanna, Shiva Referring Unavailable Eladio Spenceric Attending Unavailable Oleghe, Efewongbe Primary Care Unavailable Devi Van Attending Unavailable Devi Van Referring Unavailable Oleghe, Efewongbe Primary Care Unavailable Claudia Rico Attending Unavailable Tomás Ricos Referring Unavailable Oleghe, Efewongbe Primary Care Unavailable Sina, Aj Attending Unavailable Friend, Aj Referring Unavailable Oleghe, Efewongbe Primary Care Unavailable Oleghe, Efewongbe Primary Care Unavailable Henri Camacho Attending Unavailable Oleghe, Efewongbe Referring Unavailable Royce Martínez Attending Unavailable Oleghe, Efewongbe Referring Unavailable Oleghe, Efewongbe Primary Care Unavailable Tiffany Crystal Attending Unavailable Oleghe, Efewongbe Primary Care Unavailable Herbert Marks Referring Unavailable CyndydoHerbert bhatt Attending Unavailable Oleghe, Efewongbe Primary Care Unavailable Nereyda Hubbard Attending Unavailable Oleghe, Efewongbe Primary Care Unavailable Oleghe, Efewongbe Referring Unavailable Oleghe, Efewongbe Primary Care Unavailable Tiffany Crysatl Attending Unavailable Kendrick Herbert Referring Unavailable CyndydourVitaliyHerbert Attending Unavailable Oleghe, Efewongbe Primary Care Unavailable Oleghe, Efewongbe Primary Care Unavailable Sina, Aj Attending Unavailable Oleghe, Efewongbe Referring Unavailable Devi Van Attending Unavailable Devi Van Referring Unavailable Oleghe, Efewongbe Primary Care Unavailable Oleghe, Efewongbe Primary Care Unavailable Johanna, Shiva Attending Unavailable Greeley, Shiva Referring Unavailable Roberto Brewster Attending Unavailable Oleghe, Efewongbe Primary Care Unavailable Nagajothi, Nagapradee Attending Unavailabl e Nagajothi, Nagapradee Consulting Unavailabl e Ney Roberto Admitting Unavailable Oleghe, Efewongbe Primary Care Unavailable Jeneletsky Roberto Consulting Unavailable Koram, Audrey Rosie Consulting Unavailable Koram, Audrey Rosie Attending Unavailable Greeley, Shiva Referring Unavailable Johanna, Shiva Consulting Unavailable Johanna, Shiva Attending Unavailable Oleghe, Efewongbe Primary Care Unavailable Jennifer Ortega Attending Unavailable Greeley, Shiva Referring Unavailable Johanna, Shiva Consulting Unavailable Johanna, Shiva Admitting Unavailable Oleghe, Efewongbe Primary Care Unavailable Shiva Chandler Attending Unavailable Devi Van Attending Unavailable Devi Van [...] Primary Care Unavailable Devi Van Attending Unavailable Allergies Allergy Classification Reported Allergen(s) Allergy Type Date of Onset Reaction(s) Facility Anticholinergics (1 source) Dicyclomine; Translations: [dicyclomine] Drug Allergy [place] [address] Work Phone: liraglutide (1 source) liraglutide; Translations: [Victoza SOPN] Drug Allergy [place] [address] Work Phone: metFORMIN (1 source) metFORMIN; Translations: [metformin] Drug Allergy [place] [address] Work Phone: Nitroimidazoles (antibiotic) (1 source) metroNIDAZOLE; Translations: [Flagyl] Drug Allergy [place] [address] Work Phone: Penicillins (antibiotic) (1 source) Penicillins; Translations: [Penicillins] Drug Allergy [place] [address] Work Phone: Sulfonamides (antibiotic) (1 source) Sulfonamides (Antibiotic); Translations: [Sulfa Drugs] Drug Allergy [place] [address] Work Phone: Unclassified (1 source) Cinnamon Flavor OIL; Translations: [Cinnamon Flavor OIL] Allergy to drug (finding) [place] [address] Work Phone: (8 sources) cinnamon preparation; Translations: [CINNAMON] Drug Allergy 06-07-19 09 Anaphylaxis [facility] Rep[facility] (7 sources) codeine; Translations: [CODEINE] Drug Allergy 06-07-19 Intolerance [facility] (9 sources) dicyclomine; Translations: [DICYCLOMINE] Drug Allergy 08-19-19 14 Vomiting [facility] (7 sources) influenza virus vaccine; Translations: [FLU VACC [id number] 65YR UP(PF)] Drug Allergy 01-08-20 16 Shortness of Breath [facility] (8 sources) liraglutide; Translations: [LIRAGLUTIDE] Drug Allergy 07-23-19 17 Other: See Comments [facility] (8 sources) metFORMIN; Translations: [METFORMIN HCL] Drug Allergy 09-12-19 14 GI Upset [facility] Rep[facility] (8 sources) metroNIDAZOLE; Translations: [METRONIDAZOLE HCL] Drug Allergy 08-19-19 14 [facility] Repository (10 sources) Penicillins; Translations: [PENICILLINS] Propensity to adverse reactions to drug (disorder) 02-12-19 99 [facility] Rep[facility] (7 sources) sulfaSALAzine; Translations: [SULFASALAZINE] Drug Allergy 10-13-19 09 [facility] Rep[facility] (8 sources) Sulfonamides (Antibiotic); Translations: [SULFA (SULFONAMIDE ANTIBIOTICS)] Propensity to adverse reactions to drug (disorder) 10-13-19 09 [facility] Repository (8 sources) INFLUENZA VIRUS VACCINES; Translations: [INFLUENZA VIRUS VACCINES] Propensity to adverse reactions to drug (disorder) 12-17-19 16 Shortness of Breath, Other: See Comments [facility] Rep[facility] (2 sources) liraglutide Drug Allergy [place] [address] Work Phone: (9 sources) metFORMIN; Translations: [METFORMIN] Drug Allergy 05-28-19 24 Rash [facility] (2 sources) metroNIDAZOLE Drug Allergy [facility] [address] Work Phone: (2 sources) Sulfonamides (Antibiotic) Allergy to drug (finding) [facility] [address] Work Phone: (6 sources) ARIPiprazole; Translations: [ARIPIPRAZOLE] Drug Allergy 01-29-20 Vomiting [facility] (6 sources) Ciprofloxacin; Translations: [CIPROFLOXACIN] Drug Allergy 01-29-20 Rash [facility] (6 sources) HMG-CoA reductase inhibitor; Translations: [[id number] REDUCTASE INHIBITORS] Drug Allergy 08-17-19 14 GI Upset [facility] (6 sources) ranolazine; Translations: [RANOLAZINE] Drug Allergy 07-20-19 19 Unknown [facility] (1 source) ARIPiprazole Drug Allergy 03-29-19 [facility] Repository (1 source) Ciprofloxacin Drug Allergy 01-19-20 [facility] Repository (1 source) metroNIDAZOLE Drug Allergy 01-19-20 [facility] Repository (1 source) ranolazine Drug Allergy 01-19-20 [facility] Repository (1 source) Jrozisq-Grf-Hdz Reductase Inhibitor Drug allergy (disorder) 01-19-20 [facility] Repository Medications Current Medications Medication Drug Class(es) [...] 1 SYRINGE SUB CUTANEOUSLY EVERY 14 DAYS. [id number] 200 actuat albuterol 0.09 mg/actuat metered dose [...] on above: TAKE 1 TABLET BY THUY TWICE A DAY FILL 4 13 benzonatate [...] on above: Take 1 Packet by thuy two times a day with meals. COMPOUNDED PRESCRIPTION (20 sources) Start: 2016 COMPOUNDED PRESCRIPTION Indications: S/P total colectomy , Ileostomy in place ([facility]) Convatec - Juanita Cohesive Ostomy Seals #[id number] Dx: V45.89; V44.2 20 Each 09/01/2016 Active Start: 09-01-2016 COMPOUNDED PRE SCRIPTION Indications: S/P total colectomy , Ileostomy in place ([facility]) Convatec - Esteem 10 drainable ostomy pouch #[id number] Dx: V45.89; V44.2 20 bag 11 09/01/2016 Active Start: 08-31-2016 COMPOUNDED PRE SCRIPTION Indications: Ileostomy in place ([facility]) [employer]W Skin-Prep. V45.89, V44.2. Use as directed twice a week. 100 Each 6 08/31/2016 Active Start: 07-04-2015 COMPOUNDED PRE SCRIPTION Indications: Diabetes mellitus type 2, uncontrolled, without complications [employer]. Dx: E11.65. On insulin. 1 Each 0 07/04/2015 Active Start: 07-04-2015 COMPOUNDED PRE SCRIPTION Indications: Ileostomy in place ([facility]) CONVATEC Allkare Adhesive remover. V45.89, V44.2. Use twice a week as directed. 100 Each 6 07/04/2015 Active Comment on above: [employer]. Dx : E11.65. On insulin. CONVATEC Allkare Adh esive remover. V45.89, V44.2. Use twice a week as directed. [employer] Skin- Prep. V45.89, V44.2. Use as directed twice a week. Convate - Juanita Coh esive Ostomy Seals #[id number] Dx: V45.89; V44.2 Convatec - Esteem 10 drainable ostomy pouch #[id number] Dx: V45.89; V44.2 cyclobenzaprine hydrochloride 10 mg [...] 1 mg oral tablet (7 sources) Start: take 1 tablet by mouth once daily folic acid 1 mg tablet TAKE 1 TABLET BY MOUTH EVERY DAY 90 tablet 1 02/27/2020 Active Comment on above: TAKE 1 TABLET BY THUY TH EVERY DAY insulin aspart, human 100 unt/ml injectable solution (4 sources) Insulin Analog Start: inject 20-40 [IU] by subcutaneous injection three times daily at mealtime insulin aspart (NOVOLOG) 100 unit/mL soln Inject 20-40 Units subcutaneously three times daily with meals. 1 Vial 09/15/2016 Active Comment on above: Inject 20-40 Units s ubcutaneously three times daily with meals. 3 ml insulin lispro 200 unt/ml pen injector (11 sources) Insulin Analog Start: HUMALOG KWIKPEN INSULIN 200 unit/mL (3 mL) [...] mg tablet Indications: Coronary artery disease involving [place] heart with angina pectoris, unspecified vessel or lesion type Take 30 mg by mouth two times a day. 12/17/2015 Active Start: 11-05-2015 take 1 tablet by thuy three times daily Isosorbide Dinitrate 30 MG [...] on above: Take 1 capsule by [facility] once daily. 2 ml methotrexate 25 mg/ml [...] Comment on above: TAKE ONE TABLET BY OUT THREE TIMES DAILY NEEDED FOR NAUSEA AND [...] mg oral capsule (3 sources) Start: 08-10-19 take 1 capsule by mouth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 CPAP 08/21/2013 Pulmonary hypertension, moderate to severe ([facility]) 08/21/2013 S/P total colectomy 08/18/2013 [...] Victoza [Liraglutid* Other: See Comments Acute pancreatitis Okwlxve-Upr-Kep Red* GI Upset Review of Systems Constitutional: Negative for fatigue and fever. HENT: Negative for hearing loss and sore throat. Eyes: Negative for visual disturbance. Respiratory: Negative for cough, shortness of breath and wheezing. Cardiovascular: Positive for chest pain. Negative for palpitations. Gastrointestinal: Positive for abdominal pain. Negative f (more content not included)... Normal [facility] Ethanol SerPl-mCncon 025 Ethanol [Mass/Vol] mg/dL Normal <11 [facility] Comment on above: Order Comment: Speci men Type: BLOOD SPECIMEN Ordering Facility: [facility] Address: [address] [place] [address] [place] [id number] Performed By: #### 1 4979-9, 41217-2 #### [facility] CLIA [id number] [address] OF [facility] Lipase SerPl-cCncon 10-07-19 25 Lipase [Catalytic activity/Vol] 45 U/L Normal 16-61 [facility] Comment on above: Order Comment: Antione lazcano Type: BLOOD SPECIMEN Ordering Facility: [facility] Address: [address] [place] [address] Performed By: #### 1 4979-9, 78980-7 #### [facility] CLIA [id number] [address] PT panel Coag (PPP)on 2024 INR Coag (PPP) [Relative time] 1.1 {INR} Normal 0.9-1.3 [facility] Comment on above: Order Comment: Antione lazcano Type: BLOOD SPECIMEN Ordering Facility: [facility] Address: [address] [place] [address] Result Comment: Kimberly min K Antagonist (VKA) Therapeutic Range: INR 2 to 3 (Target INR of 2.5) Note: For patients treated with VKA drugs, such as warfarin, the [place] [employer] 2012 Guideline recommends [...] GH, et al. Chest 2012, 141:7S-47S [place] GABRIEL et al. [facility] 2017, 70: 252-289 Performed By: #### 1 4979-9, 89150-7 #### [facility] CLIA [id number] [address] STATES OF [facility] PT Coag (PPP) [Time] 11.8 s Normal 9.7-13.0 [facility] Comment on above: Order Comment: Speci men Type: BLOOD SPECIMEN Ordering Facility: [facility] Address: [address] [place] [address] Performed By: #### 1 4979-9, 57254-9 #### [facility] CLIA [id number] [address] TYPE + SCREENon 10-06-2024 ABO O Normal [facility] Comment on above: Order Comment: Speci men Type: BLOOD SPECIMEN Ordering Facility: [facility] Address: [address] [place] [address] Performed By: #### 1 4979-9, 32272-5 #### [facility] CLIA [id number] [address] Rh Nom (Bld) Positive Normal [facility] Comment on above: Order Comment: Speci men Type: BLOOD SPECIMEN Ordering Facility: [facility] Address: [address] [place] [address] Performed By: #### 1 4979-9, 76257-2 #### [facility] CLIA [id number] [address] TYPE AND SCREEN EXPIRATION 10/09/2024 23:59 Normal [facility] Comment on above: Order Comment: Speci men Type: BLOOD SPECIMEN Ordering Facility: [facility] Address: [address] [place] [address] Performed By: #### 1 4979-9, 61100-8 #### [facility] CLIA [id number] [address] OF [place] XR KNEE 4V AP/LAT/OBLS RTon 10-06-2024 XR [...] joint effusion given overlap of knee brace. Competitive Shopper: PSCB Transcribe Date/Time: Oct 06 2024 3:48P Dictated by : KATHE GRANDE MD This examination was interpreted and the report reviewed and electronically signed by: KATHE GRANDE MD on Oct 06 2024 3:49PM EST [id number] Normal [facility] aPTT PPPon 10-06-2024 aPTT Coag (PPP) [Time] 29.7 s Normal 23.0-32.4 [facility] Comment on above: Order Comment: Speci men Type: BLOOD SPECIMEN Ordering Facility: [facility] Address: [address] [place] [address] Performed By: #### 1 4979-9, 27612-2 #### [facility] CLIA [id number] 1 [place] [address] [place] HISTORY PHYSICALon HISTORY PHYSICAL HNO ID: [id number] Author: SHERINE WHEAT MD Service: ? Author Type: Physician Type: H&P Filed: 10/12/2024 14:05 Note Text: GLORY Méndez is a 64 year old female here today for followup of complications from ulcerative colitis. SP total proctocolectomy in [place]. Subsequent referral to [facility] 06/15/2008 Thai Huang [...] Syringe-Needle U-100 1 mL 29 gauge x 1/2 1 Each one time a week. (Patient [...] cholesterol. i (more content not included)... Normal [facility] Established Visit (Gastroent erology)on 06-17-2020 Established Visit (Gastroenterology ) Diagnoses/Problems Assessed Gastroparesis (536.3) (K31.84) Pancreatitis, recurrent (577.1) (K85.90) QUIROGA (nonalcoholic steatohepatitis) (571.8) (K75.81) Orders QUIROGA (nonalcoholic steatohepatitis) Start: Colestipol HCl - 1 GM Oral Tablet; take 1 tablet by mouth twice a day Rx By: Brennan Duque; Dispense: 30 Days ; #:60 Tablet; Refill: 5;For: QUIROGA (nonalcoholic steatohepatitis); DARINEL = N; Sent To: [facility]; Last Updated By: [employer]; 06/17/2020 10:37:30 AM Start: Dicyclomine HCl - 20 MG Oral Tablet; TAKE 1 TABLET EVERY 6 HOURS NEEDED Rx By: Brennan Duque; Dispense: 30 Days ; #:120 Tablet; Refill: 5;For: QUIROGA (nonalcoholic steatohepatitis); DARINEL = N; Sent To: [facility]; Last Updated By: [employer]; 06/17/2020 10:37:20 AM Chief Complaint FUV in [...] I get 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 Eyes Anicteric Sclerae . Pulmonary Auscultation of lungs: Clear. Cardiovascular Auscultation of heart: RRR without murmur. Examination of extremities for edema: Normal. Abdomen Soft, non-tender. Bowel sounds normal. No hepatomegaly or splenomegaly. Signatures Electronically signed by : Brennan Duque DO; Jun 17 2020 12:03PM EST (Author) Normal [facility] Established Visit (Gastroent erology)on 12-20-2019 Established Visit (Gastroenterology ) Diagnoses/Problems Assessed QUIROGA (nonalcoholic steatohepatitis) (571.8) (K75.81) Gastroparesis (536.3) (K31.84) Ileostomy present (V44.2) (Z93.2) History of ulcerative colitis (V12.79) (Z87.19) Orders Unlinked Stop: Pantoprazole Sodium 40 MG Oral Tablet Delayed Release Rx By: [employer]; Dispense: 14 Days ; #:14; Refill: 0; DARINEL = N; Record; Last Updated By: Jessika Epstein; 12/20/2019 10:27:35 AM Provider Impressions I kept the patient's CD of her MRI to review with radiology. I advised her given the MRI report from [facility] showing steatohepatitis and no mass that she needs yearly FibroScan to assess for cirrhosis. Continue to control diabetes keep A1c below 7% continue low-fat diet and exercise program to keep weight under control. Avoid alcohol, NSAIDs. May use Tylenol up to 2000 mg daily. Should have yearly labs to assess liver along with FibroScan annually. Chief Complaint Follow up with labs [facility]. Awaiting MRI results to be faxed from [facility]. Liver bx done on 10/11/19. Ct ab pel done on 10/10/19.US done on 12/2017. History of Present IllnessPatient seen today in follow-up for liver abnormality. I was able to review her labs from [facility] and most recent outpatient labs ordered by myself. Biopsy of mass in liver showed no mass but steatohepatitis consistent with Quiroga. She did bring a copy of her MRI but unfortunately was unable to view the disc as a had no CD slot on my computers in the office. Report that was pulled up from [facility] website indicated no mass was noted [...] (V15.82) (Z87.891) 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 power of civil litigation attorney for health care (V49.89) (Z78.9) Allergies [...] OINT BD Insulin Syringe U/F 30G X 1/2 1 MLUSE TO INJECT METHOTREXATE ONCE A [...] by mouth daily CVS D3 50 MCG (1999 [place]) Oral CapsuleTAKE 1 CAPSULE BY MOUTH [...] DEPRESSION Vitals Vital Signs Recorded: 20Dec2019 09:35AM Xbtgdwovzqm12.2 F Agmkukot884 Yicourhmg28 Height5 ft 7 in Nyfims783 lb BMI Hvwtwdkqnx89.54 BSA Calculated2 Physical Exam Constitutional General appearance: In no acute distress . Eyes Anicteric Sclerae . Pulmonary Auscultation of lungs: Clear. Cardiovascular Auscultation of heart: RRR without murmur. Examination of extremities for edema: Normal. Abdomen Soft, non-tender. Bowel sounds normal. No hepatomegaly or splenomegaly. Signatures Electronically signed by : Brennan Duque DO; Dec 20 2019 12:47PM EST (Author) Normal [facility] Initial Visit (Gastroenterol ogy)on 11-30-2019 Initial Visit (Gastroenterology ) Diagnoses/Problems Assessed Gastroparesis (536.3) (K31.84) Pancreatitis, recurrent (577.1) (K85.90) Liver mass (573.8) (R16.0) Orders Liver mass Alpha Fetoprotein, Serum; Status:Active; Requested for:64Lks3415; Perform:Lab Services - Lab To Draw (Blood Test); Due:60Myj5986;Ordered; For:Liver mass; Ordered By:Brennan Duque; C Reactive Protein, Serum; Status:Active; Requested for:03Bfd4481; Perform:Lab Services - Lab To Draw (Blood Test); Due:40Ffn7693;Ordered; For:Liver mass; Ordered By:Brennan Duque; Carcinoembryonic Antigen; Status:Active; Requested for:96Lvd6261; Perform:Lab Services - Lab To Draw (Blood Test); Due:71Xqt2645;Ordered; For:Liver mass; Ordered By:Brennan Duque; CELIAC DISEASE SEROLOGY PANEL; Status:Active; Requested for:12Tpl7400; Perform:Lab Services - Lab To Draw (Blood Test); Due:01Ivj8219;Ordered; For:Liver mass; Ordered By:Brennan Duque; Ceruloplasmin, Serum; Status:Active; Requested for:41Iql9095; Perform:Lab Services - Lab To Draw (Blood Test); Due:12Rmt3677;Ordered; For:Liver mass; Ordered By:Brennan Duque; Complete Blood Count + Differential; Status:Active; Requested for:36Tnw5179; Perform:Lab Services - Lab To Draw (Blood Test); Due:78Fcg8689;Ordered; For:Liver mass; Ordered By:Brennan Duque; Comprehensive Metabolic Panel; Status:Active; Requested for:94Cek8312; Perform:Lab Services - Lab To Draw (Blood Test); Due:12Zet2745;Ordered; For:Liver mass; Ordered By:Brennan Duque; Ferritin, Serum; Status:Active; Requested for:88Hah5109; Perform:Lab Services - Lab To Draw (Blood Test); Due:25Fhz9186;Ordered; For:Liver mass; Ordered By:Brennan Duque; Hepatitis A Ab IGM; Status:Active; Requested for:37Gxn2398; Perform:Lab Services - Lab To Draw (Blood Test); Due:31Mfr2527;Ordered; For:Liver mass; Ordered By:Brennan Duque; Hepatitis B Surface Antibody; Status:Active; Requested for:29Zyp1811; Perform:Lab Services - Lab To Draw (Blood Test); Due:22Fna9511;Ordered; For:Liver mass; Ordered By:Brennan Duque; Hepatitis B Surface Antigen; Status:Active; Requested for:11Ili3968; Perform:Lab Services - Lab To Draw (Blood Test); Due:30Sbt8059;Ordered; For:Liver mass; Ordered By:Brennan Duque; Hepatitis C Antibody Test; Status:Active; Requested for:18Byk0539; Perform:Lab Services - Lab To Draw (Blood Test); Due:73Dca6960;Ordered; For:Liver mass; Ordered By:Brennan Duque; Smooth Muscle Antibody Screen; Status:Active; Requested for:59Osd8336; Perform:Lab Services - Lab To Draw (Blood Test); Due:32Ewr1927;Ordered; For:Liver mass; Ordered By:Brennan Duque; Vitamin B12, Serum; Status:Active; Requested for:12Hub5893; Perform:Lab Services - Lab To Draw (Blood Test); Due:95Wty4256;Ordered; For:Liver mass; Ordered By:Brennan Duque; Provider Impressions I recommended she had a complete battery of tests will get a copy of her MRI and CT scan and see her back afterwards. I informed them if more biopsies or testing needs done I may refer them to a colleague of [facility] for additional work-up. Chief Complaint Pt is here today for ER follow up C/o nausea vomiting, states they did a CT scan and found masses on her liver and did a biopsy. Had MRI of kidneys yesterday. Has disc with her. She also has an ileoileostomy. History of Present Christina is a interesting 59-year-old female who is seen today at her self-referral for what is said to be liver masses. She was recently hospitalized at [facility] for diffuse abdominal pain pain was described as cramping throughout her abdomen she is admitted work-up was unremarkable her CT abdomen did show multiple hyperechoic lesions throughout the liver. She states a biopsy was done while hospitalized and she was told that she had Quiroga. No follow-up was made. A follow-up MRI [...] (V15.82) (Z87.891) 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 power of civil litigation attorney for health care (V49.89) (Z78.9) Allergies [...] DAILY BD Insulin Syringe U/F 30G X 1/2 1 MLUSE TO INJECT METHOTREXATE ONCE A [...] DAY FOR DEPRESSION Vitals Vital Signs Recorded: 83Rou0991 09:55AM Heart Rate66 Uebfsxzd092 Vkylceacd01 Height5 ft 7 in Pcrzse046 lb BMI Wuffxeaurp85.54 BSA Calculated2 Tobacco Useb) No O2 Faahjhdpba71 Physical Exam Constitutional General appearance: In no [...] Nov 30 2019 12:25PM EST (Author) Normal [facility] XR FISTULA/SINUS TRACT INJon 07-06-2017 XR [...] RYAN MD on Jul 06 2017 2:13PM [id number] Normal [facility] GLUCOSE-POCTon 10-21-2016 Glucose mass conc 130 mg/dL High 74 - 99 [facility] Comment on above: Performed By: #### G KIM ####[facility] [id number] [place] [address] Glucose mass conc 188 mg/dL High 74 - 99 [facility] Comment on above: Performed By: #### G KIM ####[facility] [id number] [place] [address] Anti-Nuclear Antibody 08-08 YOLANDA Titer <1:40 Normal <1:40 [facility] Comment on above: Order Comment: Tomás bocanegra CT:Melissa Puente 10:30 vrb:TASNEEM Performed By: #### A NA ####[address] [address] Vital Signs Date Time Vital Sign Value Performing Clinician Facility 10-06-2024 11:02-0400 Body mass index (BMI) [Ratio] 32.73 kg/m2 Sherine Wheat MD Work Phone: [facility] 10-06-2024 11:02-0400 Body weight 94.8 kg Sherine Wheat MD Work Phone: [facility] 10-06-2024 11:02-0400 Diastolic blood pressure 67 mm[Hg] Sherine Wheat MD Work Phone: [facility] 10-06-2024 11:02-0400 Heart rate 75 /min Sherine Wheat MD Work Phone: [facility] 10-06-2024 11:02-0400 Respiratory rate 18 /min Sherine Wheat MD Work Phone: [facility] 10-06-2024 11:02-0400 SaO2% (BldA) [Mass fraction] 98 % Sherine Wheat MD Work Phone: [facility] 10-06-2024 11:02-0400 Systolic blood pressure 186 mm[Hg] Sherine Wheat MD Work Phone: [facility] 08-29-2023 13:41-0400 Body mass index (BMI) [Ratio] 33.25 kg/m2 Arnulfo Moomaw SUPPLY SERVICE WORKER.CONSTRUCTION CREW MEMBER Work Phone: [facility] 08-29-2023 13:41-0400 Body temperature 98.01 [degF] Arnulfo Moomaw SUPPLY SERVICE WORKER.CONSTRUCTION CREW MEMBER Work Phone: [facility] 08-29-2023 13:41-0400 Body weight 96.3 kg Arnulfo Moomaw SUPPLY SERVICE WORKER.CONSTRUCTION CREW MEMBER Work Phone: [facility] 08-29-2023 13:41-0400 Diastolic blood pressure 78 mm[Hg] Arnulfo Moomaw SUPPLY SERVICE WORKER.CONSTRUCTION CREW MEMBER Work Phone: [facility] 08-29-2023 13:41-0400 Heart rate 66 /min Arnulfo Moomaw SUPPLY SERVICE WORKER.CONSTRUCTION CREW MEMBER Work Phone: [facility] 08-29-2023 13:41-0400 Respiratory rate 18 /min Arnulfo Moomaw SUPPLY SERVICE WORKER.CONSTRUCTION CREW MEMBER Work Phone: [facility] 08-29-2023 13:41-0400 SaO2% (BldA) [Mass fraction] 96 % Arnulfo Moomaw SUPPLY SERVICE WORKER.CONSTRUCTION CREW MEMBER Work Phone: [facility] 08-29-2023 13:41-0400 Systolic blood pressure 128 mm[Hg] Arnulfo Moomaw SUPPLY SERVICE WORKER.CONSTRUCTION CREW MEMBER Work Phone: [facility] 12-20-2019 11:35-0400 BMI (Body Mass Index) 30.54 kg/m2 [facility] 120 Work Phone: 12-20-2019 11:35-0400 Body Temperature 98.2 [degF] [facility] Work Phone: 12-20-2019 11:35-0400 Body weight 88.45 kg [facility] 120 Work Phone: 12-20-2019 11:35-0400 BP Diastolic 70 mm[Hg] [facility] 120 Work Phone: 12-20-2019 11:35-0400 BP Systolic 120 mm[Hg] [facility] 120 Work Phone: 12-20-2019 11:35-0400 BSA (Body Surface Area) 2 m2 Brennan Duque [facility] 120 Work Phone: 12-20-2019 11:35-0400 Height 170.18 cm [facility] Work Phone: 11-30-2019 11:55-0400 BMI (Body Mass Index) 30.54 kg/m2 Brennan Duque [facility] 120 Work Phone: 11-30-2019 11:55-0400 Body weight 88.45 kg Brennan Duque [facility] 120 Work Phone: 11-30-2019 11:55-0400 BP Diastolic 60 mm[Hg] Brennan Duque [facility] 120 Work Phone: 11-30-2019 11:55-0400 BP Systolic 122 mm[Hg] Brennan Duque [facility] 120 Work Phone: 11-30-2019 11:55-0400 BSA (Body Surface Area) 2 m2 Brennan Duque [facility] 120 Work Phone: 11-30-2019 11:55-0400 Height 170.18 cm Brennan Duque [facility] 120 Work Phone: 11-30-2019 11:55-0400 Pulse (Heart Rate) 66 /min Brennan Duque [facility] 120 Work Phone: 11-30-2019 11:55-0400 Pulse Oximetry 96 % [facility] Work Phone: Encounters Encounter Date Encounter Type Care Provider Facility Start: 01-18-2025 End: 01-18-2025 ambulatory Michael Barajas Facility:[facility] Start: 01-17-2025 ambulatory Devi Weeksnaspradeep Facili ty:[facility] Start: 01-15-2025 ambulatory Devi Atanasov Facili ty:[facility] Start: 01-13-2025 ambulatory Mala Mcgrath Facili ty:[facility] Start: 01-13-2025 End: 01-16-2025 Evaluation and management of inpatient Juan Carlos Gerber Facility:[facility] Start: 01-11-2025 End: 01-11-2025 ambulatory Efewongbe Oleghe Facility:[facility] Start: 01-11-2025 End: 01-11-2025 ambulatory Efewongbe Oleghe Facility:[facility] Start: 01-10-2025 End: 01-10-2025 ambulatory Devi Atanasov Facility:[facility] Start: 01-08-2025 ambulatory Herbert Cyndychris Facilit y:[facility] Start: 01-08-2025 End: 01-08-2025 ambulatory Devi Atanasov Facility:[facility] Start: 01-08-2025 End: 01-08-2025 ambulatory Zunildaongbe Arelye Facility:[facility] Start: 01-08-2025 End: 01-08-2025 ambulatory Efevelioongbe Arelye Facility:[facility] Start: 01-03-2025 ambulatory Devi Atanasov Facili ty:[facility] Start: 01-02-2025 End: 01-02-2025 Emergency department patient visit Mala Mcgeee Facility:[facility] Start: 01-02-2025 ambulatory Efevelioongronaldo Mcgeee Facili ty:[facility] Start: 01-01-2025 End: 01-01-2025 ambulatory Devi Atanasov Facility:[facility] Start: 12-27-2024 ambulatory Devi Atanasov Facili ty:[facility] Start: 12-25-2024 End: 12-25-2024 ambulatory Devi Atanasov Facility:[facility] Start: 12-22-2024 End: 12-22-2024 ambulatory Efevelioongbe Arelye [facility] Start: 12-20-2024 ambulatory Devi Atanasov Facili ty:[facility] Start: 12-18-2024 End: 12-18-2024 ambulatory Devi Atanasov Facility:[facility] Start: 12-18-2024 End: 12-18-2024 ambulatory Herbert Duganmiller Facility:[facility] Start: 12-13-2024 End: 12-13-2024 ambulatory Suellen Laureano [facility] Start: 12-08-2024 End: 12-08-2024 ambulatory Efewongbe Arelye [facility] Start: 12-06-2024 End: 12-06-2024 ambulatory Devi Atanasov Facility:[facility] Start: 12-04-2024 End: 12-05-2024 ambulatory Herbert Marks Facility:[facility] Start: 11-29-2024 End: 11-29-2024 ambulatory Devi Weeksnasov Facility:[facility] Start: 11-27-2024 End: 11-27-2024 ambulatory Devi Atanasov Facility:[facility] Start: 11-24-2024 End: 11-24-2024 ambulatory Devi Van [facility] Start: 11-22-2024 End: 11-23-2024 ambulatory Aj Andino Facility:[facility] Start: 11-20-2024 ambulatory Devi Van Facili ty:[facility] Start: 11-15-2024 End: 11-15-2024 ambulatory Devi Rehan Facility:[facility] Start: 11-13-2024 End: 11-13-2024 ambulatory Devi Weeksnaspradeep Facility:[facility] Start: 11-10-2024 End: 11-10-2024 ambulatory Zunildaongbe Nealghe [facility] Start: 11-08-2024 End: 11-08-2024 ambulatory Devi Mickynaspradeep Facility:[facility] Start: 11-01-2024 End: 11-01-2024 ambulatory Devi Weeksyohana Facility:[facility] Start: 10-31-2024 End: 10-31-2024 ambulatory Efewongbe Oleghe [facility] Start: 10-30-2024 End: 10-30-2024 ambulatory Henri Camacho Facility[facility] Start: 10-30-2024 End: 10-30-2024 ambulatory Efewongbe Oleghe Facility:[facility] Start: 10-30-2024 End: 10-30-2024 ambulatory Devi Mickynaspradeep Facility:[facility] Start: 10-27-2024 End: 10-27-2024 ambulatory Tiffany Crystal Facility[facility] Start: 10-27-2024 End: 10-27-2024 ambulatory Aj Andino Facility:[facility] Start: 10-25-2024 End: 10-26-2024 ambulatory Michael Barajas Facility:[facility] Start: 10-23-2024 End: 10-23-2024 ambulatory Devi Hillov Facility:[facility] Start: 10-23-2024 End: 10-23-2024 ambulatory Tomásmikala FerminJacky Facility:[facility] Start: 10-19-2024 End: 10-19-2024 ambulatory Devi Weekseugeniaov Facility:[facility] Start: 10-16-2024 End: 10-16-2024 ambulatory Devi Van Facility:[facility] Start: 10-12-2024 End: 10-12-2024 ambulatory Royce JONES Facility[facility] Start: 10-11-2024 ambulatory Devi Hillov Facili ty:[facility] Start: 10-09-2024 End: 10-09-2024 Orders Only Sherine Wheat MD Work Phone: Colorectal Surgery Comment on above: Bleeding from colost marcie stoma (HCC) (Primary Dx) Start: 10-06-2024 End: 10-06-2024 Emergency department patient visit [facility] Facility[facility] Start: 10-06-2024 End: 10-06-2024 Patient encounter procedure Sherine Wheat MD Work Phone: Colorectal Surgery Comment on above: Ileostomy in place ( HCC); Crohn's colitis, with fistula (HCC); Morbid (severe) obesity due to excess calories (HCC) Start: 10-06-2024 End: 10-06-2024 ambulatory SHERINE WHEAT Facility:[facility] Start: 10-04-2024 End: 10-04-2024 ambulatory Devi Van Facility:[facility] Start: 10-03-2024 End: 10-03-2024 ambulatory Herbert Marks Facility[facility] Start: 10-02-2024 ambulatory Devi Van Facili ty:[facility] Start: 09-29-2024 End: 09-29-2024 ambulatory Debra Benavides [facility] Start: 09-28-2024 End: 09-28-2024 ambulatory Tiffany Crystal Facility[facility] Start: 09-27-2024 End: 09-27-2024 ambulatory Devi Van Facility:[facility] Start: 09-26-2024 End: 09-26-2024 ambulatory Fish Lynsey Facility[facility] Start: 09-25-2024 End: 09-25-2024 ambulatory Devi Weeksnasov Facility:[facility] Start: 09-21-2024 End: 09-21-2024 Emergency department patient visit Burton Chavez Facility:[facility] Start: 09-20-2024 End: 09-20-2024 ambulatory Devi Weeksnaspradeep Facility:[facility] Start: 09-18-2024 End: 09-18-2024 ambulatory Devi Weeksnaspradeep Facility:[facility] Start: 09-14-2024 End: 09-14-2024 ambulatory Nereyda Hubbard [facility] Start: 09-14-2024 End: 09-14-2024 ambulatory Tiffany Crystal Facility[facility] Start: 09-13-2024 End: 09-13-2024 ambulatory Devi Van Facility:[facility] Start: 09-12-2024 End: 09-12-2024 ambulatory Suellen Sridevi [facility] Start: 09-11-2024 End: 09-11-2024 ambulatory Devi Van Facility:[facility] Start: 09-07-2024 End: 09-07-2024 ambulatory Jade Castaneda [facility] Start: 09-06-2024 ambulatory Devi Van Facili ty:[facility] Start: 09-05-2024 End: 09-05-2024 ambulatory Herbert Marks Facility[facility] Start: 09-04-2024 End: 09-04-2024 ambulatory Devi Weeksnaspradeep Facility:[facility] Start: 08-31-2024 ambulatory Tiffany Crystal Facilit y[facility] Start: 08-30-2024 End: 08-30-2024 ambulatory Devi Van Facility:[facility] Start: 08-28-2024 End: 08-28-2024 ambulatory Devi Atanaspradeep Facility:[facility] Start: 08-25-2024 End: 08-25-2024 ambulatory Jade Castaneda [facility] Start: 08-23-2024 End: 08-23-2024 ambulatory Devi Van Facility:[facility] Start: 08-21-2024 End: 08-21-2024 ambulatory Devi Van Facility:[facility] Start: 08-18-2024 ambulatory Jennifer Ortega [facility] Start: 08-18-2024 End: 08-18-2024 ambulatory Jade Castaneda [facility] Start: 08-17-2024 End: 08-18-2024 ambulatory Jennifer Ortega Facility:[facility] Start: 08-16-2024 End: 08-16-2024 ambulatory Devi Van Facility:[facility] Start: 08-14-2024 Encounter for other preprocedural examination Shiva Spencer [facility] Start: 08-14-2024 End: 08-14-2024 ambulatory Devi Van Facility:[facility] Start: 08-11-2024 End: 08-11-2024 ambulatory Jade Castaneda [facility] Start: 08-09-2024 End: 08-09-2024 ambulatory Royce JONES Facility[facility] Start: 08-09-2024 End: 08-09-2024 ambulatory Devi Van Facility:[facility] Start: 08-08-2024 End: 08-08-2024 ambulatory Jennifer Ortega Facility:[facility] Start: 08-07-2024 End: 08-07-2024 ambulatory Devi Van Facility:[facility] Start: 08-03-2024 End: 08-03-2024 ambulatory Herbert Marks Facility[facility] Start: 08-03-2024 End: 08-03-2024 ambulatory Tiffany Crystal Facility[facility] Start: 08-02-2024 End: 08-02-2024 ambulatory Devi Van Facility:[facility] Start: 07-28-2024 End: 07-28-2024 ambulatory Jade Castaneda [facility] Start: 07-25-2024 ambulatory Jennifer Ortega [facility] Start: 07-25-2024 End: 07-27-2024 Evaluation and management of inpatient Kareenewsethbe Oleestuardoe Facility:[facility] Start: 07-25-2024 ambulatory Shiva Spencer [facility] Start: 07-22-2024 End: 07-22-2024 ambulatory Efewongbe Oleghe Facility:[facility] Start: 07-20-2024 ambulatory Tiffany Rodney y:[facility] Start: 07-19-2024 End: 07-19-2024 ambulatory Efewongbe Oleghe Facility:[facility] Start: 07-19-2024 End: 07-19-2024 ambulatory Vikas Hill Facility:[facility] Start: 07-17-2024 ambulatory Efewongbe Oleghe Facili ty:[facility] Start: 07-13-2024 End: 07-13-2024 ambulatory Michael Barajas [facility] Start: 07-12-2024 ambulatory Efewongbe Oleghe Facili ty:[facility] Start: 07-10-2024 End: 07-10-2024 ambulatory Efewongbe Oleestuardoe Facility:[facility] Start: 07-06-2024 End: 07-06-2024 ambulatory Efewongbe Oleghe [facility] Start: 07-05-2024 End: 07-05-2024 ambulatory Efewsumava resortsbe Olee Facility:[facility] Start: 07-04-2024 End: 07-04-2024 ambulatory Herbert Marks [facility] Start: 07-03-2024 End: 07-03-2024 [facility] Start: 06-30-2024 End: 06-30-2024 Emergency department patient visit Efewongbe Oleghe Facility:[facility] Start: 06-28-2024 End: 06-28-2024 ambulatory Efewongbe Oleghe Facility:[facility] Start: 06-26-2024 End: 06-26-2024 ambulatory Efewongbe Oleghe Facility:[facility] Start: 06-22-2024 End: 06-22-2024 ambulatory Efewongbe Oleghe [facility] Start: 06-21-2024 End: 06-21-2024 ambulatory Efewongbe Oleghe Facility:[facility] Start: 06-20-2024 End: 06-20-2024 ambulatory Efewongbe Oleghe [facility] Start: 06-19-2024 End: 06-19-2024 ambulatory Efewongbe Oleghe [facility] Start: 06-15-2024 End: 06-15-2024 ambulatory Mala Mcgrath [facility] Start: 06-14-2024 End: 06-14-2024 ambulatory Mala Mcgrath Facility:[facility] Start: 06-12-2024 End: 06-12-2024 ambulatory Mala Mcgrath Facility:[facility] Start: 06-08-2024 End: 06-08-2024 ambulatory Mala Mcgrath [facility] Start: 06-05-2024 End: 06-05-2024 ambulatory Mala Mcgrath [facility] Start: 06-05-2024 End: 06-05-2024 ambulatory Mala Mcgrath Facility:[facility] Start: 06-03-2024 End: 06-03-2024 ambulatory Aj Andino Facility:[facility] Start: 06-01-2024 End: 06-01-2024 ambulatory Herbert Marks Facility[facility] Start: 05-31-2024 End: 05-31-2024 ambulatory Devi Atanaspradeep Facility:[facility] Start: 05-29-2024 End: 05-29-2024 [facility] Start: 05-25-2024 End: 05-25-2024 ambulatory Mala Mcgrath [facility] Start: 05-24-2024 Encounter for antibo dy response examination Mala Mcgrath [facility] Start: 05-24-2024 End: 05-24-2024 ambulatory Devi Rehan Facility:[facility] Start: 05-23-2024 ambulatory Mala Mcgrath Facili [facility] Start: 05-22-2024 End: 05-23-2024 ambulatory Shiva Spencer Facility:[facility] Start: 05-15-2024 End: 05-15-2024 ambulatory Devi Weeksnasov Facility:[facility] Start: 05-10-2024 End: 05-10-2024 ambulatory Devi Weeksnaspradeep Facility:[facility] Start: 05-09-2024 End: 05-09-2024 ambulatory Suellen Laureano [facility] Start: 05-08-2024 End: 05-08-2024 ambulatory Devi Weeksnasov Facility:[facility] Start: 05-04-2024 End: 05-04-2024 ambulatory Tiffany Crystal [facility] Start: 05-03-2024 End: 05-03-2024 ambulatory Devi Atanasov Facility:[facility] Start: 05-01-2024 End: 05-01-2024 ambulatory Devi Mickynasov Facility:[facility] Start: 04-26-2024 End: 04-26-2024 ambulatory Devi Weeksnasov Facility:[facility] Start: 04-24-2024 End: 04-24-2024 ambulatory Devi Mickynasov Facility:[facility] Start: 04-21-2024 End: 04-21-2024 ambulatory Devi Mickynasov Facility:[facility] Start: 04-20-2024 End: 04-20-2024 ambulatory Tiffany Crystal [facility] Start: 04-17-2024 End: 04-17-2024 ambulatory Devi Mickynaspradeep Facility:[facility] Start: 04-14-2024 End: 04-14-2024 ambulatory Henri Randallbrigette [facility] Start: 04-12-2024 End: 04-12-2024 ambulatory Devi Mickynaspradeep Facility:[facility] Start: 04-11-2024 End: 04-11-2024 ambulatory Herbert Marks Facility[facility] Start: 04-10-2024 End: 04-10-2024 ambulatory Devi Mickynaspradeep Facility:[facility] Start: 04-06-2024 End: 04-06-2024 ambulatory Tiffany Crystal [facility] Start: 04-05-2024 End: 04-05-2024 ambulatory Devi Mickynaspradeep Facility:[facility] Start: 04-03-2024 End: 04-03-2024 ambulatory Devi Weeksnaspradeep Facility:[facility] Start: 03-29-2024 End: 03-29-2024 ambulatory Royce JONES [facility] Start: 03-28-2024 End: 03-28-2024 ambulatory Suellen Laureano [facility] Start: 03-24-2024 ambulatory Castillo Ferris [facility] Start: 03-24-2024 End: 03-26-2024 Evaluation and management of inpatient Castillo Ferris Facility:[facility] Start: 03-16-2024 End: 03-16-2024 ambulatory Nereyda Hubbard [facility] Start: 03-10-2024 ambulatory Juan Carlos F Suzannemikala Fac ility:[facility] Start: 03-10-2024 End: 03-13-2024 Evaluation and management of inpatient Juan Carlos Gerber Facility:[facility] Start: 03-07-2024 End: 03-07-2024 ambulatory Herbert Marks Facility[facility] Start: 03-03-2024 End: 03-03-2024 ambulatory Tiffany Crystal [facility] Start: 02-24-2024 End: 02-24-2024 ambulatory Serenity JONES [facility] Start: 02-24-2024 End: 02-24-2024 ambulatory Serenity JONES Facility:[facility] Start: 02-21-2024 End: 02-21-2024 ambulatory Bobronaldo Nealestuardoyasir [facility] Start: 02-17-2024 End: 02-18-2024 ambulatory Audrey Vail Facility:[facility] Start: 02-15-2024 End: 02-15-2024 ambulatory Tiffany Crystal [facility] Start: 02-01-2024 End: 02-01-2024 ambulatory Suellen Sridevi [facility] Start: 01-31-2024 End: 02-01-2024 ambulatory Tonia Paris [employer] Facility:[facility] Start: 01-27-2024 End: 01-27-2024 ambulatory Tonia Paris [employer] [facility] Start: 08-29-2023 End: 08-29-2023 Patient encounter procedure Arnulfo Dacosta APRN.BENJA Work Phone: [facility] Comment on above: Great toe pain, left (Primary Dx) Start: 05-28-2023 End: 05-28-2023 Patient encounter procedure Royce Vaz Work Phone: Podiatry Comment on above: Onychomycosis (Prima ry Dx); Onychodystrophy; Pain in toe of left foot; Pain in toe of right foot; Diabetic polyneuropathy associated with type 2 diabetes mellitus (HCC); Diminished pulses in lower extremity Start: 10-23-2020 Rx Renewal Mala Zurita Ol egdonna Work Phone: [facility] Work Phone: Start: 12-20-2019 Patient encounter procedure Brennan Duque [facility] [facility] [address] Work Phone: Start: 11-30-2019 Patient encounter procedure Brennan Duque [facility] Work Phone: Start: 07-06-2017 Ambulatory DEAN C MILTON [facility] Start: 10-21-2016 End: 10-21-2016 [facility] Start: 10-08-2016 Ambulatory Mena Barahona ility:[facility] Zena Bonilla Start: 09-03-2016 Ambulatory Alireza Tavares [facility] Procedures Date Procedure Procedure Detail Performing Clinician Start: 10-06-2024 Antibody screen NIKI BENÍTEZ Comment on above: Order Comment: Specimen Type: BLOOD SPEC IMEN Ordering Facility: [facility] Address: [address] [place] [address] Performed By: #### 1 [id number], [id number] #### [id number] [address] [place] [address] [place] Start: 11-30-2019 Alpha-fetoprotein serum Brennan Benelizabeth Start: 11-30-2019 Assay of ferritin Brennanyasir Contreras Start: 11-30-2019 Blood count complete auto&auto difrntl wbc Brennan Thomae Start: 11-30-2019 C-reactive protein Brennan Thomae Start: 11-30-2019 Carcinoembryonic antigen cea Brennan Thomae Start: 11-30-2019 CELIAC DISEASE SEROLOGY PANEL Brennan Encarnacion e Start: 11-30-2019 Ceruloplasmin Brennan Thomae Start: 11-30-2019 Comprehensive metabolic 2000 panel Brennan Contrerasae Start: 11-30-2019 Cyanocobalamin vitamin b-12 Brennan Thomae Start: 11-30-2019 Hepatitis A Ab IGM Brennan Start: 11-30-2019 Hepatitis b surf antibody hbsab Brennan Morales Start: 11-30-2019 Hepatitis c antibody Brennan Duque Start: 11-30-2019 Iaad ia hepatitis b surface antigen Brennan Duque Start: 11-30-2019 Smooth Muscle Antibody Screen Brennan timmons Start: 10-21-2016 Anesth, upper gi visualize Huma Arredondo ng Start: 10-21-2016 Esophagogastroduodenoscopy us scope w/adj strxrs Huma Lambertshyanne section Brennan Duque Cholecystectomy Brennan Duque History of CABG Brennan Duque History of Cardiac C ath Procedure Outcome: Brennan Duque History of Ileostomy Brennan christensen Plan of Treatment Date Care Activity Detail Author Start: 05-24-2034 Urine microalbumin profile DTaP,Tdap,Td Vaccine (3 - Td or Tdap) [facility] Start: 10-06-2025 Complete blood count Hemoglobin/Jose tocrit [facility] Start: 10-06-2025 Creatinine measurement Serum Creatin ine [facility] Start: 01-25-2025 ambulatory Facility:[facility] Start: 01-24-2025 ambulatory Facility:[facility] Start: 01-22-2025 ambulatory Facility:[facility] Start: 01-16-2025 Pneumococcal vaccination Pneum ococcal Vaccine (4 of 4 - PPSV23 or PCV20) [facility] Start: 01-16-2025 Pneumococcal Vaccine : 50+ (4 of 4 - PCV20 or PCV21) Pneumococcal Vaccine: 50+ (4 of 4 - PCV20 or PCV21) [facility] Start: 01-16-2025 Pneumococcal Vaccine : 65+ (4 of 4 - PPSV23 or PCV20) Pneumococcal Vaccine: 65+ (4 of 4 - PPSV23 or PCV20) [facility] Start: 12-27-2024 Urine microalbumin profile DTaP,Tdap,Td Vaccine (2 - Td or Tdap) [facility] Start: 10-30-2024 End: 10-30-2024 Patient encounter procedure 10/30/2024 9:45 AM EDT Office Visit Colorectal Surgery [address] [address] Nazario Silverman DO [address] [place] [address] h/o ulcerative colitis, s/p total proctocolectomy Colorectal Surgery Comment on above: h/o ulcerative colit is, s/p total proctocolectomy Start: 08-28-2024 BP Controlled (<130/80) BP Controlle d (<130/80) [facility] Start: 03-08-2024 Advance Directive Discussion Advance Directive Discussion [facility] Start: 03-08-2024 Medicare Advantage A nnual Wellness Visit Medicare Advantage Annual Wellness Visit [facility] Start: 08-30-2023 End: 09-27-2024 XR Toes - left 3 Views XR TOE AP/LAT/OBL LEFT Radiology STAT Great toe pain, left Expected: 08/30/2023, Expires: 09/27/2024 [facility] Work Phone: Comment on above: Expected: 08/30/2023 , Expires: 09/27/2024 Start: 07-17-2023 Advance Directive Discussion Advance Directive Discussion [facility] Start: 07-17-2023 Screening for osteoporosis Bone Density Screening [facility] Start: 12-25-2020 Complete blood count Hemoglobin/Jose tocrit [facility] Start: 12-25-2020 Creatinine measurement Serum Creatin ine [facility] Start: 12-16-2020 FUV, Provider: Brennan Duque, Status: Pen, Time: 10:00 AM FUV, Provider: Brennan Duque, Status: Pen, Time: 10:00 AM -[facility] [address] Work Phone: Start: 12-13-2020 Diabetic foot examination Diabetic F oot Exam [facility] Start: 10-11-2020 Covid-19 Vaccine (3 - Pfizer risk series) Covid-19 Vaccine (3 - Pfizer risk series) [facility] Start: 2018 Hepatitis B Vaccine (1 of 3 - Risk 3-dose series) Hepatitis B Vaccine (1 of 3 - Risk 3-dose series) [facility] Start: 2018 RSV Vaccine (1 - 1-d ose 60+ series) RSV Vaccine (1 - 1-dose 60+ series) [facility] Start: 2018 RSV Vaccine (1 - Ris k 60-74 years 1-dose series) RSV Vaccine (1 - Risk 60-74 years 1-dose series) [facility] Start: 11-19-2017 Hemoglobin A1c measurement HbA1C [facility] Start: 06-23-2017 Hepatitis B screening Urine Al bumin:Creatinine Ratio [facility] Start: 06-23-2017 Hepatitis B surface antibody level LDL Cholesterol [facility] Start: 09-24-2016 Screening for malign ant neoplasm of breast Mammogram Screening [facility] Start: 08-28-2016 Glaucoma screening Dilated Retinal E xam [facility] Start: 07-17-2003 Screening for malign ant neoplasm of colon [facility] Start: 1988 Zoledronic acid therapy Alpha- 1 Antitrypsin Deficiency Screening [facility] Start: 1977 Hepatitis A Vaccine (1 of 2 - Risk 2-dose series) Hepatitis A Vaccine (1 of 2 - Risk 2-dose series) [facility] Start: 1977 Shingrix Vaccine (1 of 2) Dia grix Vaccine (1 of 2) [facility] Start: 1976 Annual PCP Team Enrollment Services Dean irma Disease Visit Annual PCP Team Chronic Disease Visit [facility] Start: 1976 BP Controlled (<130/80) BP Controlle d (<130/80) [facility] Start: 1976 HIV screening HIV Screening [facility] Start: 1976 MMR Vaccine (1 of 2 - Risk 2-dose series) MMR Vaccine (1 of 2 - Risk 2-dose series) [facility] Start: 1968 Meningococcal B Vacc ine: Consider Based On Risk (1 of 4 - Increased Risk) Meningococcal B Vaccine: Consider Based On Risk (1 of 4 - Increased Risk) [facility] End: 05-27-2024 US.doppler Extremity arteries - bilateral for physiologic artery study PVR [facility] Routine Diabetic polyneuropathy associated with type 2 diabetes mellitus (HCC) Diminished pulses in lower extremity 1 Occurrences starting 05/28/2023 until 05/27/2024 [facility] Work Phone: Comment on above: 1 Occurrences starti ng 05/28/2023 until 05/27/2024 [facility] Immunizations Immunization Date Immunization Notes Care Provider Alfred henry 03-24-2016 pneumococcal conjuga te vaccine, 13 valent Royce Vaz Work Phone: [facility] 12-27-2014 tetanus toxoid, redu elisa diphtheria toxoid, and acellular pertussis vaccine, adsorbed Royce Vaz Work Phone: [facility] 12-25-2014 influenza, seasonal, injectable Royce Testangelique Work Phone: [facility] 12-20-2013 influenza, injectabl e, quadrivalent, preservative free Royce Vaz Work Phone: [facility] Work Phone: 07-09-2013 pneumococcal polysaccharide vaccine, 23 valent Royce Vaz Work Phone: [facility] Work Phone: Payers Date Payer Category Payer Unknown [id number] 09-10-2022 Medicaid [id number] 09-10-2022 Medicare [facility] [employer] MEDICARE [id number] 09/10/2022-Present [phone] [address] [place] [address] Medicare [id number] 09-10-2022 Medicare (Managed Care) [facility] [id number] 09-10-2022 Medicare [id number] 10-06-2021 Self-pay 10-06-2021 Unknown [id number] 07-06-2018 Medicare [id number] Unknown [id number] Unknown Unknown [id number]. 462 Unknown [id number]. 462 Unknown [id number] [id number]. 462 Unknown [id number] [id number]. 462 Unknown [id number] 2.16.840.1.951166.3.579.2. 462 Unknown [id number] 2.16.840.1.710623.3.579.2. 462 Unknown [id number] 2.16.840.1.221250.3.579.2. 462 Unknown [id number] 2.16.840.1.034211.3.579.2. 462 Unknown [id number] 2.16.840.1.245947.3.579.2. 462 Unknown [id number] 2.16.840.1.212441.3.579.2. 462 Unknown [id number] 2.16.840.1.347106.3.579.2. 462 Unknown [id number] 2.16.840.1.258370.3.579.2. 462 Unknown [id number] 2.16.840.1.778340.3.579.2. 462 Unknown [id number] 2.16.840.1.947197.3.579.2. 462 Unknown [id number] 2.16.840.1.459435.3.579.2. 462 Unknown [id number] 2.16.840.1.167599.3.579.2. 462 Unknown [id number] 2.16.840.1.558811.3.579.2. 462 Unknown [id number] 2.16.840.1.087411.3.579.2. 462 Unknown 53195396 2.16.840.1.335269.3.579.2. 462 Unknown 77011628 2.16.840.1.592748.3.579.2. 462 Unknown 89240614 2.16.840.1.930021.3.579.2. 462 Unknown 21084986 2.16.840.1.210385.3.579.2. 462 Unknown 37985628 2.16.840.1.717309.3.579.2. 462 Unknown 88433420 2.16.840.1.404052.3.579.2. 462 Unknown 73822596 2.840.1.910987.3.579.2. 462 Unknown 78330163 2..840.1.059979.3.579.2. 462 Unknown 44142077 2.840.1.453142.3.579.2. 462 Unknown [id number] 2.840.1.720913.3.579.2. 462 Unknown [id number] 2..840.1.127754.3.579.2. 462 Unknown [id number] 2.16.840.1.729703.3.579.2. 462 Unknown [id number] 2..840.1.830251.3.579.2. 462 Unknown [id number] 2.840.1.425864.3.579.2. 462 Unknown [id number] 2.16.840.1.076793.3.579.2. 462 Unknown [id number] 2.16.840.1.512154.3.579.2. 462 Unknown [id number] 2.16.840.1.652247.3.579.2. 462 Unknown [id number] 2.16.840.1.843652.3.579.2. 462 Unknown [id number] 2.16840.1.685357.3.579.2. 462 Unknown [id number] 2.16.840.1.807660.3.579.2. 462 Unknown [id number] 2.16.840.1.237260.3.579.2. 462 Unknown [id number] 2.16.840.1.614976.3.579.2. 462 Unknown [id number] 2.16840.1.418909.3.579.2. 462 Unknown [id number] 2.16.840.1.148045.3.579.2. 462 Unknown [id number] 2..840.1.047932.3.579.2. 462 Unknown [id number] 2.840.1.217558.3.579.2. 462 Unknown [id number] 2.840.1.451198.3.579.2. 462 Unknown [id number] 2.840.1.059954.3.579.2. 462 Unknown [id number] 2.840.1.086139.3.579.2. 462 Unknown [id number] 2.840.1.121554.3.579.2. 462 Unknown [id number] 2.840.1.200087.3.579.2. 462 Unknown [id number] 2.840.1.541017.3.579.2. 462 Unknown [id number] 2.840.1.069587.3.579.2. 462 Unknown [id number] 2.840.1.917738.3.579.2. 462 Unknown [id number] 2.840.1.915620.3.579.2. 462 Unknown [id number] 2.840.1.850472.3.579.2. 462 Unknown [id number] 2.16840.1.497472.3.579.2. 462 Unknown [id number] 2.16.840.1.904853.3.579.2. 462 Unknown [id number] 2.16.840.1.208138.3.579.2. 462 Unknown [id number] 2.16.840.1.473366.3.579.2. 462 Unknown [id number] 2.16.840.1.685850.3.579.2. 462 Unknown [id number] 2.16.840.1.787401.3.579.2. 462 Unknown [id number] 2.16.840.1.259846.3.579.2. 462 Unknown [id number] 2.16.840.1.859380.3.579.2. 462 Unknown [id number] 2.16.840.1.767540.3.579.2. 462 Unknown [id number] 2.16.840.1.871178.3.579.2. 462 Unknown [id number] 2.16.840.1.854500.3.579.2. 462 Unknown [id number] 2.16.840.1.342882.3.579.2. 462 Unknown [id number] 2.16.840.1.532185.3.579.2. 462 Unknown [id number] 2.16.840.1.223534.3.579.2. 462 Unknown [id number] 2.16.840.1.712000.3.579.2. 462 Unknown [id number] 2.16.840.1.502309.3.579.2. 462 Unknown [id number] 2.16.840.1.459360.3.579.2. 462 Unknown [id number] 2.16.840.1.878267.3.579.2. 462 Unknown [id number] 2.16.840.1.268531.3.579.2. 462 Unknown [id number] 2.16.840.1.881297.3.579.2. 462 Unknown [id number] 2.16.840.1.569991.3.579.2. 462 Unknown [id number] 2.16.840.1.560723.3.579.2. 462 Unknown [id number] 2.16.840.1.661384.3.579.2. 462 Unknown [id number] 2.16.840.1.039392.3.579.2. 462 Unknown [id number] 2.16.840.1.951059.3.579.2. 462 Unknown [id number] 2.16840.1.811088.3.579.2. 462 Unknown [id number] 2.16.840.1.373669.3.579.2. 462 Unknown [id number] 2.840.1.575113.3.579.2. 462 Unknown [id number] 2.840.1.050108.3.579.2. 462 Unknown [id number] 2.840.1.869665.3.579.2. 462 Unknown [id number] 2.840.1.051100.3.579.2. 462 Unknown [id number] 2.840.1.158683.3.579.2. 462 Unknown [id number] 2.16840.1.608791.3.579.2. 462 Unknown [id number] 2.16840.1.911673.3.579.2. 462 Unknown [id number] 2.16840.1.109800.3.579.2. 462 Unknown [id number] 2.16840.1.505265.3.579.2. 462 Unknown [id number] 2.16840.1.737027.3.579.2. 462 Unknown [id number] 2.16840.1.950703.3.579.2. 462 Unknown 28289978 2.16.840.1.953977.3.579.2. 462 Unknown [id number] 2.16.840.1.792373.3.579.2. 462 Unknown [id number] 2.16.840.1.482801.3.579.2. 462 Unknown [id number] 2.16.840.1.547175.3.579.2. 462 Unknown [id number] 2.840.1.890336.3.579.2. 462 Unknown [id number] 2.840.1.357597.3.579.2. 462 Unknown 34328612 2.840.1.833512.3.579.2. 462 Unknown [id number] 2.840.1.505860.3.579.2. 462 Unknown [id number] 2.840.1.185457.3.579.2. 462 Unknown [id number] 2.840.1.058430.3.579.2. 462 Unknown [id number] 2.840.1.309304.3.579.2. 462 Unknown [id number] 2.840.1.700009.3.579.2. 462 Unknown [id number] 2.840.1.337845.3.579.2. 462 Unknown [id number] 2.840.1.854757.3.579.2. 462 Unknown [id number] 2.840.1.517090.3.579.2. 462 Unknown [id number] 2.840.1.372582.3.579.2. 462 Unknown [id number] 2.16840.1.949040.3.579.2. 462 Unknown [id number] 2.840.1.728913.3.579.2. 462 Unknown [id number] 2.840.1.369989.3.579.2. 462 Unknown [id number] 2.16.840.1.827613.3.579.2. 462 Unknown 00187942 2.16.840.1.478587.3.579.2. 462 Unknown [id number] 2.16.840.1.332183.3.579.2. 462 Unknown [id number] 2.16.840.1.706986.3.579.2. 462 Unknown [id number] 2.16.840.1.903468.3.579.2. 462 Unknown [id number] 2.16840.1.307396.3.579.2. 462 Unknown 15383965 2.16840.1.229246.3.579.2. 462 Unknown [id number] 2.16840.1.274676.3.579.2. 462 Unknown 30564131 2.840.1.297000.3.579.2. 462 Unknown [id number] 2.840.1.867987.3.579.2. 462 Unknown [id number] 2.840.1.271055.3.579.2. 462 Unknown [id number] 2.840.1.612767.3.579.2. 462 Unknown 10501515 2.16840.1.527243.3.579.2. 462 Unknown [id number] 2.840.1.970499.3.579.2. 462 Unknown 36090176 2.16840.1.350599.3.579.2. 462 Unknown 74425246 2.16840.1.765167.3.579.2. 462 Unknown [id number] 2.16840.1.031250.3.579.2. 462 Unknown 30698526 2.16840.1.136318.3.579.2. 462 Unknown 41461330 2.16840.1.334596.3.579.2. 462 Unknown [id number] 2.16.840.1.356189.3.579.2. 462 Unknown 96419873 2.16.840.1.069870.3.579.2. 462 Unknown [id number] 2.16.840.1.683931.3.579.2. 462 Unknown [id number] 2.16.840.1.694022.3.579.2. 462 Unknown [id number] 2.16.840.1.870630.3.579.2. 462 Unknown [id number] 2.16.840.1.739122.3.579.2. 462 Unknown [id number] 2.16.840.1.024750.3.579.2. 462 Unknown [id number] 2.16.840.1.329787.3.579.2. 462 Unknown [id number] 2.16.840.1.454438.3.579.2. 462 Unknown [id number] 2.16.840.1.991836.3.579.2. 462 Unknown [id number] 2.16.840.1.881729.3.579.2. 462 Unknown [id number] 2.16.840.1.574764.3.579.2. 462 Unknown [id number] 2.16.840.1.833496.3.579.2. 462 Unknown [id number] 2.16.840.1.193450.3.579.2. 462 Unknown [id number] 2.16.840.1.161608.3.579.2. 462 Unknown [id number] 2.16.840.1.679715.3.579.2. 462 Unknown [id number] 2.16.840.1.054362.3.579.2. 462 Unknown [id number] 2.16.840.1.741717.3.579.2. 462 Unknown 96217156 2.16.840.1.088895.3.579.2. 462 Unknown [id number] 2.16.840.1.497186.3.579.2. 462 Unknown [id number] 2.16.840.1.108554.3.579.2. 462 Unknown [id number] 2.16.840.1.202043.3.579.2. 462 Unknown [id number] 2.16.840.1.700109.3.579.2. 462 Unknown [id number] 2.16.840.1.962206.3.579.2. 462 Unknown [id number] 2.16.840.1.128203.3.579.2. 462 Unknown [id number] 2.16.840.1.391850.3.579.2. 462 Unknown [id number] 2.16.840.1.645432.3.579.2. 462 Unknown [id number] 2.16.840.1.333043.3.579.2. 462 Unknown [id number] 2.16.840.1.530267.3.579.2. 462 Unknown [id number] 2.16.840.1.215030.3.579.2. 462 Unknown [id number] 2.16.840.1.009177.3.579.2. 462 Unknown [id number] 2.16.840.1.903033.3.579.2. 462 Unknown [id number] 2.16.840.1.891928.3.579.2. 462 Unknown [id number] 2.16.840.1.559849.3.579.2. 462 Unknown [id number] 2.16.840.1.014650.3.579.2. 462 Unknown [id number] 2.16.840.1.723336.3.579.2. 462 Unknown [id number] 2.16.840.1.623913.3.579.2. 462 Unknown 10040409 2.16.840.1.694330.3.579.2. 462 Unknown [id number] 2.16.840.1.799640.3.579.2. 462 Unknown 14010018 2.16.840.1.369040.3.579.2. 462 Unknown [id number] 2..840.1.952926.3.579.2. 462 Unknown [id number] 2..840.1.889891.3.579.2. 462 Unknown [id number] 2.840.1.743905.3.579.2. 462 Unknown [id number] 2.840.1.918555.3.579.2. 462 Unknown [id number] 2.840.1.761142.3.579.2. 462 Unknown 01079288 2.840.1.380421.3.579.2. 462 Unknown [id number] 2.840.1.774556.3.579.2. 462 Unknown [id number] 2.840.1.320667.3.579.2. 462 Unknown [id number] 2.840.1.697402.3.579.2. 462 Unknown [id number] 2.840.1.833886.3.579.2. 462 Unknown [id number] 2.840.1.265249.3.579.2. 462 Unknown [id number] 2..840.1.346939.3.579.2. 462 Unknown [id number] 2.16.840.1.946531.3.579.2. 462 Unknown [id number] 2.16840.1.185993.3.579.2. 462 Unknown [id number] 2.840.1.622997.3.579.2. 462 Unknown [id number] 2.16.840.1.260455.3.579.2. 462 Unknown [id number] 2.16.840.1.445227.3.579.2. 462 Unknown 10891100 2.16.840.1.098024.3.579.2. 462 Unknown 44177171 2.16.840.1.771369.3.579.2. 462 Unknown [id number] 2.16.840.1.151039.3.579.2. 462 Unknown [id number] 2.16.840.1.899326.3.579.2. 462 Unknown [id number] 2.16.840.1.575106.3.579.2. 462 Unknown [id number] 2.16.840.1.264046.3.579.2. 462 Unknown [id number] 2.16840.1.396921.3.579.2. 462 Unknown [id number] 2.16.840.1.356418.3.579.2. 462 Unknown [id number] 2.16840.1.132143.3.579.2. 462 Unknown [id number] 2.16.840.1.962178.3.579.2. 462 Social History Date Type Detail Facility Start: 08-18-2013 End: 05-28-2023 Former smoker Former smoker [facility] Start: 08-18-2013 End: 08-29-2023 Tobacco smoking status NHIS Ex-smoker [facility] Work Phone: Start: 05-06-1992 End: 05-06-2012 History of tobacco use Current smoker [facility] Work Phone: Start: 05-06-1992 End: 05-06-2012 History of tobacco use Cigarette Smoker [facility] Work Phone: Start: 08-18-2013 End: 08-29-2023 Tobacco use and exposure Smokeless tobacco non-user [facility] Work Phone: Start: 05-28-2023 End: 08-29-2023 Alcohol intake Current non-drinker of alcohol (finding) [facility] Start: 08-19-2017 End: 05-28-2023 Tobacco use panel [facility] Retired 04/06/2019 PHQ Score 4 [facility] Start: 1960 Sex Assigned At Not on file [facility] NEGATED: Highlighted row - - [facility] [address] Work Phone: Medical Equipment [...] BLOOD SUGAR(S)5-6 DAILY. DX: DIABETES. INSULIN: YES [id number] Start: 09-30-2015 Inject 4-6 times daily [id number] Start: 04-14-2016 1 Each one time a week. [id number] Start: 08-08-2019 Functional Status Date Assessment Result Facility 08-23-2017 Are you deaf, or do you have serious difficulty hearing No 08/23/2017 8:47 PM Coleen MajanoRn) (Hist), RN No [facility] 08-23-2017 Are you blind, or do you have serious difficulty seeing, even when wearing glasses No 08/23/2017 8:47 PM Coleen MajanoRn) (Hist), RN No [facility] 08-23-2017 Do you have serious difficulty walking or climbing stairs No 08/23/2017 8:47 PM Coleen MajanoRn) (Hist), RN No [facility] 08-23-2017 Do you have difficul ty dressing or bathing No 08/23/2017 8:47 PM Coleen MajanoRn) (Hist), RN No [facility] 08-23-2017 Because of a physica l, mental, or emotional condition, do you have difficulty doing errands alone such as visiting a physician's office or shopping No 08/23/2017 8:47 PM EDT Coleen Rowley (Rn) (Hist), RN No [facility] NEGATED: Highlighted row Functional performance Functional status health issues are not documented Disease [facility] Work Phone: Mental Status Date Assessment Result Facility 08-23-2017 Because of a physical, mental, or emotional condition, do you have serious difficulty concentrating, remembering, or making decisions No 08/23/2017 8:47 PM EDT Coleen Rowley (Rn) (Hist), RN No [facility] NEGATED: Highlighted row Cognitive function [Interpretation] Cognitive status health issues are not documented Disease [facility] [place] Work Phone: Clinical Notes 12-27-2015 to 09-30-2024 Sherine Wheat MD - 09/30/2024 2:12 AM Sherine Kuo MD - 09/30/2024 2:12 AM Arnulfo Crowley APRN.[employer] - 08/29/2023 1:47 PM Royce Payne - 05/28/2023 9:30 AM EDT Note Date & Type Note Facility 09-30-2024 History and physi carrol note HPI Ashley Méndez is a 64 year old female here today for followup of complications from ulcerative colitis. SP total proctocolectomy in [place]. Subsequent referral to [facility] 06/15/2008 Thai Huang MD Lapartomy for recurrent bowel obstructions at the level of the ileostomy 06/29/2008 Sheirne Wheat MD Revision of end ileostomy for stoma relocation retraction right to left with loop end ileotomy 10/15/2008 Sherine Wheat MD Removal of retained drain 08/19/2017 Dean Rose Laparotomy and drainage of chronic abscess [...] Syringe-Needle U-100 1 mL 29 gauge x 1/2 1 Each one time a week. (Patient [...] PRESCRIPTION Convatec - Juanita Cohesive Ostomy Seals #[id number] Dx: V45.89; V44.2 COMPOUNDED PRESCRIPTION Convatec - Esteem 10 drainable ostomy pouch #[id number] Dx: V45.89; V44.2 COMPOUNDED PRESCRIPTION EPREZ & NEPHEW Skin-Prep. V45.89, V44.2. Use as directed twice a week. insulin needles, DISPOSABLE, (BD INSULIN PEN NEEDLE UF) 31 gauge x 5/16 ndle Inject 4-6 times daily (Patient not [...] taking: Reported on 05/28/2023) COMPOUNDED PRESCRIPTION SHARPS DIRECTOR COST. Dx: E11.65. On insulin. COMPOUNDED PRESCRIPTION CONVATEC [...] Victoza [Liraglutid* Other: See Comments Acute pancreatitis Fmapkmz-Vbe-Xnd Red* GI Upset Social History Tobacco Use [...] (coronary artery disease) 08/18/2013 Dr. Cresencio Menon, [facility] Chest pain at rest 08/21/2013 Dr. Wright, Pain Management CHF (congestive heart failure) ([facility]) 08/21/2013 Chronic abdominal wound infection CKD (chronic kidney disease) stage 3, GFR 30-59 ml/min ([facility]) 08/21/2013 CKD (chronic kidney disease), stage II 08/21/2013 COPD (chronic obstructive pulmonary disease) ([facility]) 08/18/2013 Dr. Cherelle Lazo, pulmonary Depression with anxiety 08/21/2013 Fistula Gastroparesis History of Meniere's disease 1993 surgical treatment HTN (hypertension) 08/18/2013 Hyperlipidemia 08/18/2013 Hypoxemia 12/18/2013 Dr. Cherelle Lazo, pulmonary Migraine 08/21/2013 Neck pain ANKITA on CPAP 08/21/2013 Pulmonary hypertension, moderate to severe ([facility]) 08/21/2013 S/P total colectomy 08/18/2013 [...] REVJ ILEOSTOMY SIMPLE RLS SUPERFICIAL SCAR SPX 2007 STENT PLACEMENT,PERCUTAN,EACH 08/2012;09/2012; multiple TOTAL ABDOMINAL HYSTERECT [...] done in there presence of a female rock climbing instructor. General: no acute distress Wheel chair bound [...] I shall confer with my partners at [facility] main -Colon and rectal surgery -Enterostomal therapy -GI/hepatology Images of the stoma, the perineum, and the abdominal wall pannus will be uploaded. Sherine Wheat MD DATE: 09/30/24 TIME: 2:12 AM [facility] 09-30-2024 History and physi carrol note HPI Ashley Méndez is a 64 year old female here today for followup of complications from ulcerative colitis. SP total proctocolectomy in [place]. Subsequent referral to [facility] 06/15/2008 Thai Huang MD Lapartomy for recurrent bowel obstructions at the level of the ileostomy 06/29/2008 Sherine Wheat MD Revision of end ileostomy for stoma relocation retraction right to left with loop end ileotomy 10/15/2008 Sherine Wheat MD Removal of retained drain 08/19/2017 Dean Rose Laparotomy and drainage of chronic abscess [...] Syringe-Needle U-100 1 mL 29 gauge x 1/2 1 Each one time a week. (Patient [...] PRESCRIPTION Convatec - Juanita Cohesive Ostomy Seals #[id number] Dx: V45.89; V44.2 COMPOUNDED PRESCRIPTION Convatec - Esteem 10 drainable ostomy pouch #[id number] Dx: V45.89; V44.2 COMPOUNDED PRESCRIPTION PEREZ & NEPHEW Skin-Prep. V45.89, V44.2. Use as directed twice a week. insulin needles, DISPOSABLE, (BD INSULIN PEN NEEDLE UF) 31 gauge x 5/16 ndle Inject 4-6 times daily (Patient not [...] taking: Reported on 05/28/2023) COMPOUNDED PRESCRIPTION SHARPS DIRECTOR COST. Dx: E11.65. On insulin. COMPOUNDED PRESCRIPTION CONVATEC [...] Victoza [Liraglutid* Other: See Comments Acute pancreatitis Koehbhn-Nmd-Whd Red* GI Upset Social History Tobacco Use [...] Wright, Pain Management CHF (congestive heart failure) ([facility]) 08/21/2013 Chronic abdominal wound infection CKD (chronic kidney disease) stage 3, GFR 30-59 ml/min ([facility]) 08/21/2013 CKD (chronic kidney disease), stage II 08/21/2013 COPD (chronic obstructive pulmonary disease) ([facility]) 08/18/2013 Dr. Cherelle Lazo, pulmonary Depression with anxiety 08/21/2013 Fistula Gastroparesis History of Meniere's disease 1993 surgical treatment HTN (hypertension) 08/18/2013 Hyperlipidemia 08/18/2013 Hypoxemia 12/18/2013 Dr. Cherelle Lazo, pulmonary Migraine 08/21/2013 Neck pain ANKITA on CPAP 08/21/2013 Pulmonary hypertension, moderate to severe ([facility]) 08/21/2013 S/P total colectomy 08/18/2013 Ulcerative colitis, ileostomy. Type II or unspecified type diabetes mellitus without mention of complication, uncontrolled 08/18/2013 Ulcerative colitis ([facility]) PAST SURGICAL HISTORY Procedure Laterality [...] done in there presence of a female rock climbing instructor. General: no acute distress Wheel chair bound [...] I shall confer with my partners at [facility] main -Colon and rectal surgery -Enterostomal therapy -GI/hepatology Images of the stoma, the perineum, and the abdominal wall pannus will be uploaded. Sherine Wheat MD DATE: 09/30/24 TIME: 2:12 AM documented in this encounter [facility] 08-29-2023 History of Presen t illness Narrative This note was created using Enlighted. Subjective Ashley Méndez is a 63 year [...] - XR TOE AP/LAT/OBL LEFT Arnulfo Dacosta APRN.[employer] documented in this encounter [facility] 05-28-2023 History of Presen t illness [...] States her last A1c (this month at [facility]) was 7.2. No change in medications or [...] (coronary artery disease) 08/18/2013 Dr. Cresencio Menon, [facility] Chest pain at rest 08/21/2013 Dr. Wright, Pain Management CHF (congestive heart failure) ([facility]) 08/21/2013 Chronic abdominal wound infection CKD (chronic kidney disease) stage 3, GFR 30-59 ml/min ([facility]) 08/21/2013 CKD (chronic kidney disease), stage II 08/21/2013 COPD (chronic obstructive pulmonary disease) ([facility]) 08/18/2013 Dr. Cherelle Lazo, pulmonary Depression with anxiety 08/21/2013 Fistula Gastroparesis History of Meniere's disease 1994 surgical treatment HTN (hypertension) 08/18/2013 Hyperlipidemia 08/18/2013 Hypoxemia 12/18/2013 Dr. Cherelle Lazo, pulmonary Migraine 08/21/2013 Neck pain ANKITA on CPAP 08/21/2013 Pulmonary hypertension, moderate to severe ([facility]) 08/21/2013 S/P total colectomy 08/18/2013 Ulcerative colitis, ileostomy. Type II or unspecified type diabetes mellitus without mention of complication, uncontrolled 08/18/2013 Ulcerative colitis ([facility]) Current Outpatient Medications Medication Sig [...] TABLET BY MOUTH TWICE A DAY FILL 06 19 19 BREO ELLIPTA 100-25 mcg/dose inhaler INHALE 1 [...] Syringe-Needle U-100 1 mL 29 gauge x 1/2 1 Each one time a week. Oral Medication Containers (SHARPS CONTAINER) [facility] Use for MTX syringes loperamide (IMODIUM) 2 [...] PRESCRIPTION Convatec - Juanita Cohesive Ostomy Seals #[id number] Dx: V4; V44.2 COMPOUNDED PRESCRIPTION Convatec - Esteem 10 drainable ostomy pouch #[id number] Dx: V4; V44.2 COMPOUNDED PRESCRIPTION PEREZ & [...] by mouth once daily. COMPOUNDED PRESCRIPTION SHARPS DIRECTOR COST. Dx: E11.65. On insulin. COMPOUNDED PRESCRIPTION CONVATEC [...] Victoza [Liraglutid* Other: See Comments Acute pancreatitis Hkgzsuc-Ivb-Fpp Red* GI Upset PAST SURGICAL HISTORY Procedure [...] TOTAL ABDOMINAL HYSTERECT W/WO RMVL TUBE OVARY 1991 Hysterectomy, CIRO, bilateral SO TOTAL FACIAL NERVE DECOMPRESSION &/REPAIR 1994 Facial nerve decomp, 1994, Right side FAMILY HISTORY Problem Relation Age [...] Objective: Patient presents to clinic ambulating in [facility] Constitutional: Pt is a well developed [...] last few years. documented in this encounter [facility] 12-27-2015 History of Past i llness Narrative Problem Noted Date Diagnosed Date Resolved Date Lower back pain 12/27/2015 01/10/2016 Pain in right elbow 01/15/2015 03/24/19 17 Open wound of abdominal wall , anterior, complicated 05/22/2014 07/05/2015 documented as of this encounter (statuses as of 05/28/2023) [facility] Diagnosis Onychomycosis- Primary Dermatophytosis of nail Onychodystrophy Other specified disease of nail Pain in toe of left foot Pain in limb Pain in toe of right foot Pain in limb Diabetic polyneuropathy associated with type 2 diabetes mellitus (HCC) Diminished pulses in lower extremity Other symptoms involving cardiovascular system [facility] Great toe pain, left- Primary [facility] Diagnosis Ileostomy in place (HCC) Ileostomy status Crohn's colitis, with fistula (HCC) Morbid (severe) obesity due to excess calories ([facility]) [facility] Diagnosis Bleeding from colostomy stoma (HCC)- Primary Other complication of colostomy or enterostomy documented in this encounter [facility] for referral (narrative)* Outpatient Procedure (Routine) - Authorized Specialty Diagnoses / Procedures Referred By Deion cochran Referred To [facility] Diagnoses Diabetic polyneuropathy associated with type 2 diabetes mellitus (HCC) Diminished pulses in lower extremity Procedures PVR ANK PRESS [facility] NON-INVAS PHYSIOLOGIC STD EXTREMITY ART 2 LEVEL Royce Vaz [address] [place] [address] [facility] [place] [address] [place] [id number] Referral ID Status Reason Start Date Expiration Date Visits Requested Visits Authorized [id number] Authorized Auto-Generat ed Referral 05/28/2023 05/27/2024 1 1 [facility] for referral (narrative)* Diagnostic Procedure Only (Urgent) - Pending Review Specialty Diagnoses / Procedures Referred By Contac t Referred To Contact [facility] Diagnoses Great toe pain, left Procedures XR TOE AP/LAT/OBL LEFT RADEX TOE MINIMUM 2 VIEWS Arnulfo Dacosta APRN.CNP [address] [facility] [place] [address] [place] [id number] Referral ID Status Reason Start Date Expiration Date Visits Requested Visits Authorized [id number] Pending Review Auto-Generat ed Referral 08/30/2023 09/27/2024 1 1 [facility] Summary Purpose Family History No Family [...] DATE CREATED AUTHOR AUTHOR'S ORGANIZ ATION 08/31/2017 [facility] DATE CREATED AUTHOR AUTHOR'S ORGANIZ ATION 09/01/2017 [facility] DATE CREATED AUTHOR AUTHOR'S ORGANIZ ATION 09/01/2017 [facility] DATE CREATED AUTHOR AUTHOR'S ORGANIZ ATION 06/18/2020 [facility] DATE CREATED AUTHOR AUTHOR'S ORGANIZ ATION 10/12/2024 [facility] DATE CREATED AUTHOR AUTHOR'S ORGANIZ ATION 10/15/2024 [facility] DATE CREATED AUTHOR AUTHOR'S ORGANIZ ATION 01/18/[address] [facility] Source Comments (unrecognize d section and content) In the event this informatio n is protected by the Federal Confidentiality of Alcohol and Drug Abuse Patient Records regulations: The Federal rules restrict any use of the information to criminally investigate or prosecute any alcohol or drug abuse patient.[facility] the event this information is protected by the Federal Confidentiality of Alcohol and Drug Abuse Patient Records regulations: The Federal rules restrict any use of the information to criminally investigate or prosecute any alcohol or drug abuse patient.[facility] the event this information is protected by the Federal Confidentiality of Alcohol and Drug Abuse Patient Records regulations: The Federal rules restrict any use of the information to criminally investigate or prosecute any alcohol or drug abuse patient.[facility] the event this information is protected by the Federal Confidentiality of Alcohol and Drug Abuse Patient Records regulations: The Federal rules restrict any use of the information to criminally investigate or prosecute any alcohol or drug abuse patient.[facility] Reason for Visit (unrecogniz ed section and content) Reason Comments New Pain Ingrown Toenail Reason Comments left toe pain Fell 2 days ago Care Teams (unrecognized sec tion and content) Filter Tank Tender Relationship Specialty Start Date End Date Mala Mcgrath MD [address] [place], [place] [phone] PCP - General Internal Medicine 07/29/17 Royce Vaz [address] [place] [address] Podiatry 12/27/19 Kieran Rico MD [address] [id number] Mat Roller Nephrology 12/27/19 Aj Andino DO [address] [id number] Referring Gastroenterology 02/10/[address] [place] [address] Registered Dietitian Nutrition 02/18/22 Filter Tank Tender Relationship Specialty Start Date End Date Mala Mcgrath MD [address] [place], [place] [phone] PCP - General Internal Medicine 07/29/17 Royce Vaz [address] [place] [address] Podiatry 12/27/19 Kieran Rico MD [address] [place] [address] Mat Roller Nephrology 12/27/19 Aj Andino DO [address] [place] [address] Referring Gastroenterology 02/10/[address], [place] [address] Registered Dietitian Nutrition 02/18/22 Filter Tank Tender Relationship Specialty Start Date End Date Mala Mcgrath MD [address] [place] [address] PCP - General Internal Medicine 07/29/17 Royce Vaz [address] [place] [address] Podiatry 12/27/19 Kieran Rico MD [address] [place] [address] Mat Roller Nephrology 12/27/19 Aj Andino DO [address] [place] [address] Referring Gastroenterology 02/10/[address] [place] [address] Registered Dietitian Nutrition 02/18/22 Filter Tank Tender Relationship Specialty Start Date End Date Mala Mcgrath MD [address] [facility] [address] PCP - General Internal Medicine 07/29/17 Royce Vaz [address] [facility] [place], [place] [id number] Podiatry 12/27/19 Kieran Rico MD [address] [facility] [address] [place] [address] Mat Roller Nephrology 12/27/19 Aj Anidno DO [address] [phone] Referring Gastroenterology 02/10/[address] [place] [address] Registered Dietitian Nutrition 02/18/22 FOR RECORDS PERTAINING [...] BE BASED ON THE PRIMARY CLINICAL RECORDS. [employer] provides no warranty or guarantee of the accuracy or completeness of information in this document.
[2025-02-28] MEDS: 0.9% NaCl Peripheral Flush Adult IV (12:06)
[2025-02-28 12:07] VITALS: BP 164/59; PULSE 83; RESP 16; TEMP 36.6; O2SAT 96
== END 2025-02-28 23:59 | disposition home or self-care (01) ==
LOC: MEDOUTP 10:41
PROVIDERS: PCP Internal Medicine; Referring Provider Student in an Organized Health Care Education/Training Program; Visit Provider Student in an Organized Health Care Education/Training Program
DX: E86.0 Dehydration (principal); R19.8 Other specified symptoms and signs involving the digestive system and abdomen
CPT/HCPCS: 96360; A4216